=== PATIENT | female | born 1945 | race Caucasian/White ===

== ENCOUNTER → 2024-12-13 | Outpatient (REF) | payer MEDICARE, SELFPAY ==
--- OUTSIDE RECORDS SUMMARY | 2024-12-13 04:05 | XMS RPT_ITS | CCD ---
Author Organization [facility] Care Team Providers Care Sales And Marketing Specialist Name Role Phone Marie Devi Unavailable Unavailable Marie Devi Unavailable Unavailable Marie Devi Unavailable Unavailable Unavailable Marie Devi MD Primary Care Provider Marie Devi MD Primary Care Provider Marie Devi MD Unavailable Marie Devi MD Primary Care Provider MD MARIE DEVI Referring Unavailable MD MARIE DEVI Primary Care Unavailable MD MARIE DEVI Attending Unavailable MD MARIE DEVI Referring Unavailable MD MARIE DEVI Primary Care Unavailable MD MARIE DEVI Attending Unavailable Marie Devi MD Primary Care Provider Vicki Diego MD Unavailable Alvarez Escobedo DOa Sam Unavailable Mirta Brody RN Unavailable Unavailable Vicki Diego MD Unavailable [phone] Fuentes DOesa E Unavailable Marie Devi MD Primary Care Provider Luana Montgomery MD Unavailable Marie Devi MD Unavailable Ivanna Godinez MA Unavailable Unavailable MARIE DEVI Referring Unavailable MARIE DEVI Primary Care Unavailable MARIE DEVI Referring Unavailable MARIE DEVI Primary Care Unavailable MARIE DEVI Primary Care Unavailable MARIE DEVI Referring Unavailable MARIE DEVI Primary Care Unavailable MARIE DEVI Primary Care Unavailable Gertrude YOUNG, Yony Unavailable TORRIE CHOI Attending Unavailable MARIE DEVI Primary Care Unavailable GIA, ELO Attending Unavailable RHINA BUCKLEY Consulting Unavailable MARIE DEVI Primary Care Unavailable GIA, ELO Admitting Unavailable Marie Devi MD Primary Care Provider [phone] MARIE DEVI Primary Care Unavailable FANNY, STEVIE Attending Unavailable MARIE DEVI Primary Care Unavailable FANNY, STEVIE Referring Unavailable FANNY, STEVIE Attending Unavailable SHANDRA, MARIE Primary Care Unavailable FANNY, STEVIE Referring Unavailable STANEC, LEONARDO Primary Care Unavailable FANNY, STEVIE Attending Unavailable DULDINA, MARIE Primary Care Unavailable FANNY, STEVIE Attending Unavailable FANNY, STEVIE Attending Unavailable SHANDRA, MARIE Primary Care Unavailable FANNY, STEVIE Attending Unavailable MARIE DEVI Primary Care Unavailable FANNY, STEVIE Referring Unavailable FANNY, STEVIE Attending Unavailable SHANDRA, MARIE Primary Care Unavailable FANNY, STEVIE Referring Unavailable FANNY, STEVIE Attending Unavailable SHANDRA, MARIE Primary Care Unavailable SHANDRA, MARIE Primary Care Unavailable DONVICKI COLLIER Attending Unavailable FANNY, STEVIE Referring Unavailable DONVICKI COLLIER Attending Unavailable SHANDRA, MARIE Primary Care Unavailable FANNY, STEVIE Attending Unavailable MARIE DEVI Primary Care Unavailable FANNY, STEVIE Referring Unavailable FANNY, STEVIE Attending Unavailable MARIE DEVI Primary Care Unavailable FANNY, STEVIE Referring Unavailable Vicki Diego MD Unavailable [phone] Stanec DO, Leonardo Primary Care Provider Marie Devi MD Unavailable Stansohail DO, Leonardo R Primary Care Provider [phone] MARIE DEVI Attending Unavailable MARIE DEVI Primary Care Unavailable MARIE DEVI Attending Unavailable MARIE DEVI Primary Care Unavailable STANEC, LEONARDO R Attending Unavailable STANSOHAIL, LEONARDO R Primary Care Unavailable MARIE DEVI Primary Care Unavailable LUCIUS DUBOSE Referring Unavailable SHAW KINSEY Attending Unavailable SHERRI, RAVKIRAN Admitting Unavailable MARIE DEVI Primary Care Unavailable KELTON TAYLOR Consulting Unavailable Allergies Allergy Classification Reported Allergen(s) Allergy Type Date of Onset Reaction(s) Facility Alendronate (3 sources) Alendronate; Translations: [Fosamax] Drug Allergy [facility] Work Phone: Cephalosporins (antibiotic) (3 sources) Cephalexin; Translations: [Keflex TABS] Drug Allergy [facility] Work Phone: [phone] Penicillins (antibiotic) (3 sources) Penicillins; Translations: [Penicillins] Drug Allergy [facility] Work Phone: pregabalin (3 sources) pregabalin; Translations: [Lyrica CAPS] Drug Allergy [facility] Work Phone: Serotonin Reuptake Inhibitors (SSRIs) (3 sources) Escitalopram Drug Allergy [facility] Work Phone: [phone] (11 sources) Alendronate; Translations: [Fosamax] Drug Allergy [facility] Work Phone: [phone] (20 sources) Aspirin; Translations: [Adult Aspirin Low Strength TBDP] Drug Allergy 10-31-19 23 Other [facility] Work Phone: [phone] (20 sources) Cephalexin; Translations: [Keflex TABS] Drug Allergy 05-07-20 10 Unknown [facility] Work Phone: (11 sources) Escitalopram Drug Allergy [facility] Work Phone: [phone] (15 sources) Penicillins; Translations: [Penicillins] Allergy to drug (finding) 05-12-20 10 [facility] (20 sources) pregabalin; Translations: [Lyrica CAPS] Drug Allergy 05-07-20 10 Unknown [facility] Work Phone: (20 sources) Alendronate; Translations: [ALENDRONIC ACID] Drug Allergy 05-07-20 10 Unknown, Other [facility] Work Phone: (20 sources) nickel; Translations: [NICKEL] Drug Allergy 05-07-20 10 Unknown [facility] Work Phone: (2 sources) Penicillins Drug Allergy 05-12-20 10 Unknown [facility] Work Phone: (20 sources) Salicylic Acid; Translations: [SALICYLATES] Drug Allergy 05-07-20 10 Unknown, Other [facility] Work Phone: (17 sources) CONTRAST DYE MRI [Other] Propensity to adverse reactions 06-14-20 10 [facility] (14 sources) Escitalopram; Translations: [ESCITALOPRAM OXALATE] Drug Allergy 10-25-19 23 Other [facility] Work Phone: (20 sources) Penicillins Drug Allergy 05-12-20 10 [facility] Work Phone: (12 sources) Salicylic Acid Drug Allergy 05-07-20 10 [facility] Work Phone: (20 sources) Iodinated Contrast Media; Translations: [IODINATED CONTRAST MEDIA] Drug Intolerance 06-14-20 10 [facility] Work Phone: (20 sources) Salicylate product Propensity to adverse reactions to drug 05-07-20 10 [facility] Work Phone: (20 sources) Alendronate Drug Allergy 05-07-20 10 Unknown, Other [facility] [email or web address] (20 sources) Escitalopram Drug Allergy 10-25-19 23 Other, Unknown [facility] [email or web address] (20 sources) Gadolinium Drug Allergy 03-06-20 [email or web address] (20 sources) Iodine; Translations: [IODINE] Drug Allergy 03-06-20 23 Hives [facility] (20 sources) nickel sulfate Drug Allergy 05-07-20 10 Unknown [facility] [email or web address] (20 sources) Penicillins Drug Allergy 05-12-20 10 Unknown [facility] [email or web address] (20 sources) Pregabalin; Translations: [PREGABALIN] Allergy to substance 05-07-20 10 Unknown [facility] [email or web address] (7 sources) Prednisone & Diphenhydramine Drug Allergy 03-06-20 23 Unknown [facility] [email or web address] (10 sources) Acetaminophen / HYDROcodone; Translations: [HYDROCODONE-ACETA MINOPHEN] Drug Allergy 08-14-19 12 Nausea/vomitin g [facility] (2 sources) Aspirin; Translations: [ASPIRIN] Drug Allergy 10-31-19 23 [facility] (4 sources) Cephalexin; Translations: [CEPHALEXIN] Drug Allergy 05-07-20 10 [facility] (1 source) Penicillins Drug Allergy 05-12-20 10 Unknown [facility] Work Phone: Medications Current Medications Medication Drug Class(es) Dates Sig (Normalized) Sig (Original) anastrozole 1 mg oral tablet (20 sources) Aromatase Inhibitor Start: 09-02-2023 End: 07-29-2025 take 1 tablet by mouth once daily anastrozole (Arimidex) 1 MG tablet Indications: Malignant neoplasm of upper-outer quadrant of left breast in female, estrogen receptor positive (HCC) Take 1 tablet (1 mg total) by mouth daily. Swallow whole with a drink of water. 90 tablet 3 08/03/2024 07/29/2025 Active CALCIUM CARB-CHOLECALCIFERO L PO (20 sources) CALCIUM CARB-CHOLECALCIFER OL PO Take by mouth. Active CALCIUM CARB-CHO LECALCIFEROL PO Take by mouth. 0 Active Calcium Carbonate / Vitamin D (8 sources) Calcium Carbonat e-Vitamin D (OSCAL 500/200 D-3 PO) Take 1 tablet by mouth in the morning. Active Calcium Carbonate / vitamin D3 (7 sources) take 1 tablet by iqra th once daily calcium carbonate/vitamin D3 (CALCIUM PLUS VITAMIN D PO) Indications: Osteoporosis Take 1 tablet by mouth once daily. Active calcium carbonat e/vitamin D3 (CALCIUM PLUS VITAMIN D PO) Take by mouth. 0 Active carbidopa 25 mg / levodopa 100 mg oral tablet (20 sources) Aromatic Amino Acid Decarboxylation Inhibitor, Aromatic Amino Acid Start: 01-23-2023 End: 02-12-2023 carbidopa-levodopa (Sinemet) 25-100 mg tablet Indications: Repeated falls , Parkinsonism, unspecified Parkinsonism type (Multi) Take 1 tablet at 10 am, 3 pm, and 8 pm 90 tablet 2 02/12/2023 Active Start: 01-10-2023 End: 01-23-2023 take 1 tablet by mouth twice daily carbidopa-levodopa (Sinemet) 25-100 mg tablet Indications: Depression with anxiety , Repeated falls Take 1 tablet by mouth 2 times a day. 180 tablet 3 01/10/2023 01/23/2023 Discontinued (Reorder) Start: 09-19-2022 take 1 tablet by iqra twice daily carbidopa-levodopa (Sinemet) 25-100 mg tablet Take 1 tablet by mouth 2 times a day. 0 09/19/2022 Active Start: 01-18-2022 carbidopa-levo dopa (Sinemet) 25-100 MG tablet every 8 hours. 01/18/2022 Active Start: 01-18-2022 take 1 tablet by iqra th three times daily, then take 1 tablet by mouth in the morning, then take 3 tablets by mouth in the evening, then take 8 tablets by mouth in the evening carbidopa-levodopa (SINEMET 25-100) 25-100 mg per tablet Take 1 tablet by mouth three times a day. Take 1 tablet at 10 am, 3 pm, and 8 pm 01/18/2022 Active Start: 01-18-2022 carbidopa-levo dopa (SINEMET 25-100) 25-100 mg per tablet Take 1 tablet at 10 am, 3 pm, and 8 pm 0 01/18/2022 Active Comment on above: Take 1 tablet at 10 am, 3 pm, and 8 pm cholecalciferol 0.05 mg oral tablet (3 sources) Vitamin D take 1 tablet by mouth once daily cholecalciferol (Vitamin D-3) 50 MCG (2000 UT) tablet Take 1 tablet (2,000 Units) by mouth once daily. Active diphenhydrAMINE (8 sources) Histamine-1 Receptor Antagonist diphenhydrAMINE HCl (NERVINE PO) daily. Active diphenhydrAMINE HCl (NERVINE PO) Nervine Active docusate sodium 100 mg oral capsule (3 sources) Start: 10-27-2023 End: 11-11-2023 take 1 capsule by mouth twice daily Docusate Sodium (DSS) 100 MG capsule Take 100 mg by mouth twice a day. 10/27/2023 Active DULoxetine 20 mg delayed release oral capsule (20 sources) Serotonin and Norepinephrine Reuptake Inhibitor Start: 01-10-2023 End: 08-10-2024 take 1 capsule by mouth once daily DULoxetine (Cymbalta) [address] capsule Indications: Depression with anxiety Take 1 capsule (20 mg) by mouth once daily. 90 capsule 1 05/05/2024 Active Start: 08-18-2018 take 1 capsule by mo [facility] once daily DULoxetine HCl - 20 MG Oral Capsule Delayed Release Particles TAKE 1 CAPSULE DAILY. Quantity: 90 Refills: 3 Ordered: 13-Dec-2021 Marie Devi MD Start : 18-Aug-2018 Active End: 08-10-2024 take 1 capsule by mouth every eight hours DULoxetine (Cymbalta) [address] capsule Take 1 capsule by mouth every 8 hours. 08/10/2024 Discontinued (Duplicate order) Comment on above: Take 1 capsule (20 m g) by mouth once daily. loratadine 10 mg oral tablet (20 sources) Start: 08-14-2024 take 1 tablet by mouth once daily loratadine (Allergy Relief, loratadine,) 10 mg tablet Indications: Allergic rhinitis, unspecified Take 1 tablet (10 mg) by mouth once daily. 90 tablet 1 08/14/2024 Active Start: 11-15-2022 End: 11-04-2023 loratadine (Claritin) 10 MG tablet Take by mouth daily. 07/22/2023 Active End: 02-03-2023 LORATADINE (CLARITIN ORAL) T flaco by mouth. 0 02/03/2023 Discontinued (Course of therapy completed) LORATADINE (CLAR ITIN ORAL) Take by mouth. 0 Active Comment on above: Take by mouth. Take 1 tablet by iqra every afternoon. memantine hydrochloride 10 mg oral tablet (20 sources) Z-uvkgno-U-aspartate Receptor Antagonist Start: take 1 tablet by mouth once daily memantine (NAMENDA) 10 mg tablet Take 10 mg by mouth once daily. 06/12/2023 Active Start: 02-26-2023 take 1 tablet by iqra th twice daily memantine (Namenda) 10 MG tablet Take 1 tablet by mouth 2 times daily. 02/26/2023 Active Start: 02-26-2023 End: 11-11-2023 take 1 tablet by mouth once daily memantine (Namenda) 5 MG tablet Take 1 tablet by mouth daily. 02/26/2023 09/02/2023 Discontinued (Ineffective) miscellaneous medical supply misc (1 source) miscellaneous me dical supply misc Neurvive Active MULTIPLE VITAMIN PO (20 sources) take 1 capsule by mo uth in the morning MULTIPLE VITAMIN PO Take 1 capsule by mouth in the morning. Active take 1 capsule by mouth in the m orning MULTIPLE VITAMIN PO Take 1 capsule by mouth in the morning. 0 Active Multiple Vitamins-Minerals (THERA M PLUS PO) (8 sources) take 1 dose by mouth in the morning Multiple Vitamins-Minerals (THERA M PLUS PO) Take 1 each by mouth in the morning. Active Multivitamin capsule (13 sources) take 1 capsule by mouth once daily Multivitamin capsule Take 1 capsule by mouth once daily. Active take 1 capsule by mouth once pat ly Multivitamin capsule Take 1 capsule by mouth once daily. 0 Active Comment on above: Take 1 capsule by mo uth once daily. ondansetron 8 mg oral tablet (20 sources) Serotonin-3 Receptor Antagonist Start: 3 End: take 1 tablet by mouth every eight hours as needed ondansetron (Zofran) 8 MG tablet Take 8 mg by mouth every 8 hours as needed. 06/12/2023 Active Start: 03-25-2023 End: 05-04-2023 take 1 tablet by mouth every eight hours as needed for nausea ondansetron (Zofran) 8 MG tablet Indications: Malignant neoplasm of upper-outer quadrant of left breast in female, estrogen receptor positive (HCC) Take 1 tablet (8 mg) by mouth every 8 hours as needed for nausea. 60 tablet 1 03/25/2023 05/04/2023 pantoprazole 40 mg delayed release oral tablet (3 sources) Proton Pump Inhibitor Start: 10-28-2023 End: 11-11-2023 take 1 tablet by mouth once daily pantoprazole (ProtoNix) 40 MG EC tablet Take 40 mg by mouth daily. 10/28/2023 Active polyethylene glycol 3350 37586 mg powder for oral solution (3 sources) Osmotic Laxative Start: 10-28-2023 End: 11-11-2023 take 17 g by mouth once daily polyethylene glycol, PEG, 3350 (Miralax) 17 g packet Take 17 g by mouth daily. 10/28/2023 Active prochlorperazine 10 mg oral tablet (20 sources) Phenothiazine Start: 06-12-2023 End: 02-18-2024 take 1 tablet by mouth every six hours as needed prochlorperazine (Compazine) 10 MG tablet Take 10 mg by mouth every 6 hours as needed. 06/12/2023 Active Start: 03-25-2023 End: 05-24-2023 take 1 tablet by mouth every six hours as needed for nausea prochlorperazine (Compazine) 10 MG tablet Indications: Malignant neoplasm of upper-outer quadrant of left breast in female, estrogen receptor positive (HCC) Take 1 tablet (10 mg) by mouth every 6 hours as needed for nausea. 90 tablet 1 03/25/2023 05/24/2023 psyllium 3400 mg powder for oral suspension (20 sources) take 3.4 g by mouth once daily psyllium (Metamucil) 28.3 % powder Take 3.4 g of fiber by mouth daily. Active sennosides, senior care 8.6 mg oral tablet (3 sources) Start: 10-27-19 End: 11-11-19 take 2 tablets by mouth once daily sennosides (Senokot) 8.6 MG tablet Take 17.2 mg by mouth daily. 10/27/2023 Active sulfamethoxazole 800 mg / trimethoprim 160 mg oral tablet (4 sources) Dihydrofolate Reductase Inhibitor Antibacterial, Sulfonamide Antimicrobial Start: 06-03-20 End: 06-10-20 take 1 tablet by mouth twice daily sulfamethoxazole-t rimethoprim (Bactrim DS) 800-160 MG tablet Indications: Bacterial urinary infection Take 1 tablet by mouth 2 times daily for 7 days. 14 tablet 0 06/03/2023 06/10/2023 Active VITAMIN D PO (20 sources) VITAMIN D PO Aurelio e by mouth. 2 gummies a day Active VITAMIN D PO Aurelio e by mouth. 2 gummies a day 0 Active Completed/Discontinued Medications Medication Drug Class(es) Dates Sig (Normalized) Sig (Original) acetaminophen 325 mg oral tablet (5 sources) Start: 06-24-2023 End: 06-24-2023 650 mg, Oral, Once, On Fri06/24/23 at 0930, For 1 dose, Administer 30 to 60 minutes prior to treatment. Maximum dose of acetaminophen is 4000 mg from all sources in 24 hours. Start: 06-24-2023 End: 06-24-2023 acetaminophen (Tylenol) tabl et 650 mg Start: 04-01-2023 End: 04-01-2023 acetaminophen (Tylenol) tabl et 650 mg take 2 tablets by mo uth every six hours as needed acetaminophen (Tylenol) 325 MG tablet Take 650 mg by mouth every 6 hours as needed. Active amoxicillin 500 mg oral tablet (20 sources) Penicillin-class Antibacterial End: 08-10-2024 take 1 tablet by mouth in the morning dexamethasone 6 mg oral tablet (20 sources) Corticosteroid Start: 10-14-2023 End: 08-10-2024 take 1 tablet by mouth once daily dexAMETHasone (Decadron) 6 MG tablet Take 1 tablet by mouth once daily for 3 doses. 10/14/2023 08/10/2024 Discontinued (Duplicate order) Start: 03-25-2023 End: 03-26-2023 dexAMETHasone (Decadron) 4 M G tablet Indications: Malignant neoplasm of upper-outer quadrant of left breast in female, estrogen receptor positive (HCC) Take 1 tablet (4 mg) by mouth in the morning and 1 tablet (4 mg) in the evening. Take with meals. Do all this for 1 day. Take 6 hours and 12 hours prior to first cycle of chemotherapy.. 2 tablet 03/25/2023 Active diphenhydrAMINE (BENADryl) 2 5 mg, famotidine (Pepcid) 20 mg in sodium chloride 0.9 % 50 mL IVPB (4 sources) Start: 06-24-2023 End: 06-24-2023 IntraVENous, at 150 mL/hr, Administer over 20 Minutes, Once, On Fri06/24/23 at 0930, For 1 dose, Administer 30 minutes prior to treatment. Start: 06-24-2023 End: 06-24-2023 diphenhydrAMINE (BENADryl) 2 5 mg, famotidine (Pepcid) 20 mg in sodium chloride 0.9 % 50 mL IVPB Start: 05-27-2023 End: 05-27-2023 diphenhydrAMINE (BENADryl) 2 5 mg, famotidine (Pepcid) 20 mg in sodium chloride 0.9 % 50 mL IVPB Start: 05-20-2023 End: 05-20-2023 diphenhydrAMINE (BENADryl) 2 5 mg, famotidine (Pepcid) 20 mg in sodium chloride 0.9 % 50 mL IVPB diphenhydrAMINE (BENADryl) 5 0 mg, famotidine (Pepcid) 20 mg in sodium chloride 0.9 % 50 mL IVPB (7 sources) Start: 05-13-2023 End: 05-13-2023 diphenhydrAMINE (BENADryl) 5 0 mg, famotidine (Pepcid) 20 mg in sodium chloride 0.9 % 50 mL IVPB Start: 05-06-2023 End: 05-06-2023 diphenhydrAMINE (BENADryl) 5 0 mg, famotidine (Pepcid) 20 mg in sodium chloride 0.9 % 50 mL IVPB Start: 04-29-2023 End: 04-29-2023 diphenhydrAMINE (BENADryl) 5 0 mg, famotidine (Pepcid) 20 mg in sodium chloride 0.9 % 50 mL IVPB Start: 04-22-2023 End: 04-22-2023 diphenhydrAMINE (BENADryl) 5 0 mg, famotidine (Pepcid) 20 mg in sodium chloride 0.9 % 50 mL IVPB Start: 04-08-2023 End: 04-08-2023 IntraVENous, at 150 mL/hr, A dminister over 20 Minutes, Once, On Fri04/08/23 at 1045, For 1 dose, Administer 30 minutes prior to treatment. Start: 04-08-2023 End: 04-08-2023 diphenhydrAMINE (BENADryl) 5 0 mg, famotidine (Pepcid) 20 mg in sodium chloride 0.9 % 50 mL IVPB Start: 04-01-2023 End: 04-01-2023 diphenhydrAMINE (BENADryl) 5 0 mg, famotidine (Pepcid) 20 mg in sodium chloride 0.9 % 50 mL IVPB doxycycline hyclate 50 mg oral capsule (8 sources) Tetracycline-class Drug Start: 10-15-2022 End: 02-05-2023 take 1 capsule by mouth once daily doxycycline (VIBRAMYCIN) 50 mg capsule Take 1 capsule (50 mg) by mouth once daily. 0 10/15/2022 02/05/2023 Discontinued (Course of therapy completed) Start: 07-17-2022 take 1 capsule by [facility] once daily Doxycycline Hyclate 50 MG Oral Capsule TAKE 1 CAPSULE DAILY FOR ACNE Quantity: 90 Refills: 0 Ordered: 17-Jul-2022 Marie Devi MD Start : 17-Jul-2022 Active Comment on above: Take 1 capsule (50 m g) by mouth once daily. metroNIDAZOLE 0.0075 mg/mg topical gel (18 sources) Nitroimidazole Antimicrobial Start: 03-05-2018 End: 08-10-2024 metroNIDAZOLE 0.75 % External Gel APPLY AND RUB IN A THIN FILM TO AFFECTED AREAS TWICE DAILY.(AM AND PM). Quantity: 45 Refills: 2 Marie Devi MD Start : 05-Mar-2018 Active Start: 11-22-2016 metroNIDAZOLE 0.75 % External Gel apply and rub in a thin film TO THE AFFECTED AREA(S) TWICE DAILY (IN THE MORNING and IN THE EVENING) Quantity: 45 Refills: 2 Ordered: 10-Jan-2022 Marie Devi MD Start : 22-Nov-2016 Active patient is completely out. Start: 11-22-2016 metroNIDAZOLE 0.75 % External Gel apply and rub in a thin film TO THE AFFECTED AREA(S) TWICE DAILY (IN THE MORNING and IN THE EVENING) Quantity: 45 Refills: 0 Ordered: 17-Jan-2021 Dara Sorensen DO Start : 22-Nov-2016 Active patient is completely out. Start: 11-22-2016 metroNIDAZOLE 0.75 % External Gel apply and rub in a thin film TO THE AFFECTED AREA(S) TWICE DAILY (IN THE MORNING and IN THE EVENING) Quantity: 45 Refills: 2 Ordered: 11-Nov-2020 Marie Devi MD Start : 22-Nov-2016 Active End: 08-10-2024 metroNIDAZOLE (Metrogel) 0.7 5 % vaginal gel as directed Externally as directed 08/10/2024 Discontinued (Duplicate order) ondansetron (Zofran) 8 mg, dexAMETHasone (Decadron) 12 mg in sodium chloride 0.9 % 50 mL IVPB (9 sources) Start: 05-27-2023 End: 05-27-2023 ondansetron (Zofran) 8 mg, dexAMETHasone (Decadron) 12 mg in sodium chloride 0.9 % 50 mL IVPB Start: 05-20-2023 End: 05-20-2023 ondansetron (Zofran) 8 mg, d exAMETHasone (Decadron) 12 mg in sodium chloride 0.9 % 50 mL IVPB Start: 05-13-2023 End: 05-13-2023 ondansetron (Zofran) 8 mg, d exAMETHasone (Decadron) 12 mg in sodium chloride 0.9 % 50 mL IVPB Start: 05-06-2023 End: 05-06-2023 ondansetron (Zofran) 8 mg, d exAMETHasone (Decadron) 12 mg in sodium chloride 0.9 % 50 mL IVPB Start: 04-29-2023 End: 04-29-2023 ondansetron (Zofran) 8 mg, d exAMETHasone (Decadron) 12 mg in sodium chloride 0.9 % 50 mL IVPB Start: 04-22-2023 End: 04-22-2023 ondansetron (Zofran) 8 mg, d exAMETHasone (Decadron) 12 mg in sodium chloride 0.9 % 50 mL IVPB Start: 04-08-2023 End: 04-08-2023 IntraVENous, at 100 mL/hr, A dminister over 30 Minutes, Once, On Fri04/08/23 at 1045, For 1 dose Start: 04-08-2023 End: 04-08-2023 ondansetron (Zofran) 8 mg, d exAMETHasone (Decadron) 12 mg in sodium chloride 0.9 % 50 mL IVPB Start: 04-01-2023 End: 04-01-2023 ondansetron (Zofran) 8 mg, d exAMETHasone (Decadron) 12 mg in sodium chloride 0.9 % 50 mL IVPB ondansetron (Zofran) 8 mg, dexAMETHasone (Decadron) 8 mg in sodium chloride 0.9 % 50 mL IVPB (3 sources) Start: 08-05-2023 End: 08-05-2023 ondansetron (Zofran) 8 mg, dexAMETHasone (Decadron) 8 mg in sodium chloride 0.9 % 50 mL IVPB Start: 06-03-2023 End: 06-03-2023 ondansetron (Zofran) 8 mg, d exAMETHasone (Decadron) 8 mg in sodium chloride 0.9 % 50 mL IVPB Start: 05-23-2023 End: 05-23-2023 ondansetron (Zofran) 8 mg, d exAMETHasone (Decadron) 8 mg in sodium chloride 0.9 % 50 mL IVPB PACLitaxel (Taxol) 126 mg in sodium chloride 0.9 % 250 mL chemo IVPB (6 sources) Start: 05-27-2023 End: 05-27-2023 PACLitaxel (Taxol) 126 mg in sodium chloride 0.9 % 250 mL chemo IVPB Start: 05-20-2023 End: 05-20-2023 PACLitaxel (Taxol) 126 mg in sodium chloride 0.9 % 250 mL chemo IVPB Start: 05-13-2023 End: 05-13-2023 PACLitaxel (Taxol) 126 mg in sodium chloride 0.9 % 250 mL chemo IVPB Start: 05-06-2023 End: 05-06-2023 PACLitaxel (Taxol) 126 mg in sodium chloride 0.9 % 250 mL chemo IVPB Start: 04-29-2023 End: 04-29-2023 PACLitaxel (Taxol) 126 mg in sodium chloride 0.9 % 250 mL chemo IVPB Start: 04-22-2023 End: 04-22-2023 PACLitaxel (Taxol) 126 mg in sodium chloride 0.9 % 250 mL chemo IVPB PACLitaxel (Taxol) 162 mg in sodium chloride 0.9 % 250 mL chemo IVPB (3 sources) Start: 04-08-2023 End: 04-08-2023 162 mg (rounded from 164.8 m g = 80 mg/m2 2.06 m2 Treatment Plan BSA from Recorded weight), IntraVENous, at 277 mL/hr, Administer over 1 Hours, Once, On Fri04/08/23 at 1145, For 1 dose, Administer with in-line 0.22 micron filter. Maintain concentration of 0.3 to 1.2 mg/mL. Hazardous Medication -- Refer to facility policy for handling and disposal. Start: 04-08-2023 End: 04-08-2023 PACLitaxel (Taxol) 162 mg in sodium chloride 0.9 % 250 mL chemo IVPB Start: 04-01-2023 End: 04-01-2023 PACLitaxel (Taxol) 162 mg in sodium chloride 0.9 % 250 mL chemo IVPB PARoxetine (9 sources) Serotonin Reuptake Inhibitor End: 02-03-2023 PAROXETINE HCL ORAL Take by mouth. 0 02/03/2023 Discontinued (Course of therapy completed) PAROXETINE HCL O RAL Take by mouth. 0 Active Comment on above: Take by mouth. predniSONE 20 mg oral tablet (1 source) Start: 08-12-2023 End: 11-11-2023 predniSONE (Deltasone) 20 mg tablet Indications: Persistent cough for 3 weeks or longer Take 2 tablets daily for 5 days, with food 10 tablet 08/12/2023 11/11/2023 Discontinued (Med List Cleanup) 1000 ml sodium chloride 9 mg/ml injection (20 sources) Start: 09-23-2023 End: 09-23-2023 sodium chloride 0.9 % infusion Start: 09-02-2023 End: 09-02-2023 take 100 mL intravenously every hour, then take 20 mL intravenously every hour 5-250 mL/hr, IntraVENous, Once PRN, KVO, Starting on Fri09/02/23 at 1018, If patient receiving piggyback infusions and maintenance fluids are not ordered OR KVO fluids to protect IV site/ prevent frequent line interruptions/ long duration For piggyback infusion, administer at same rate as piggyback for a total of 25 mL. Enter 25 mL into dose field and piggyback rate into rate field of order. If piggyback is infusing at a rate less than 100 mL/hr, enter 25 mL into dose field and 100 mL/hr into rate field of order. For KVO fluids, enter rate of 20 mL/hr or less into rate field of order. Start: 09-02-2023 End: 09-02-2023 sodium chloride 0.9 % infusi on Start: 08-12-2023 End: 08-12-2023 take 1 dose by mouth once as needed 1,000 mL, IntraVENous, at 1,000 mL/hr, Administer over 60 Minutes, Once PRN, signs/symptoms of dehydration, poor po intake, Starting on Fri08/12/23 at 0938, For 1 dose Start: 08-12-2023 End: 08-12-2023 take 1 dose by mouth once as needed 1,000 mL, IntraVENous, at 1,000 mL/hr, Administer over 60 Minutes, Once PRN, signs/symptoms of dehydration, poor po intake, Starting on Fri08/12/23 at 0938, For 1 dose Start: 08-12-2023 End: 08-12-2023 take 1 dose by mouth once as needed 1,000 mL, IntraVENous, at 1,000 mL/hr, Administer over 60 Minutes, Once PRN, signs/symptoms of dehydration, poor po intake, Starting on Fri08/12/23 at 0938, For 1 dose Start: 08-12-2023 End: 08-12-2023 take 1 dose by mouth once as needed 1,000 mL, IntraVENous, at 1,000 mL/hr, Administer over 60 Minutes, Once PRN, signs/symptoms of dehydration, poor po intake, Starting on Fri08/12/23 at 0938, For 1 dose Start: 08-12-2023 End: 08-12-2023 take 1 dose by mouth once as needed 1,000 mL, IntraVENous, at 1,000 mL/hr, Administer over 60 Minutes, Once PRN, signs/symptoms of dehydration, poor po intake, Starting on Fri08/12/23 at 0938, For 1 dose Start: 08-12-2023 End: 08-12-2023 take 1 dose by mouth once as needed 1,000 mL, IntraVENous, at 1,000 mL/hr, Administer over 60 Minutes, Once PRN, signs/symptoms of dehydration, poor po intake, Starting on Fri08/12/23 at 0938, For 1 dose Start: 08-12-2023 End: 08-12-2023 take 1 dose by mouth once as needed 1,000 mL, IntraVENous, at 1,000 mL/hr, Administer over 60 Minutes, Once PRN, signs/symptoms of dehydration, poor po intake, Starting on Fri08/12/23 at 0938, For 1 dose Start: 08-12-2023 End: 08-12-2023 sodium chloride 0.9 % bolus 1,000 mL Start: 08-05-2023 End: 08-05-2023 sodium chloride 0.9 % bolus 1,000 mL Start: 07-15-2023 End: 07-15-2023 take 100 mL intravenously every hour, then take 20 mL intravenously every hour 5-250 mL/hr, IntraVENous, Once PRN, KVO, Starting on Fri07/15/23 at 1133, If patient receiving piggyback infusions and maintenance fluids are not ordered OR KVO fluids to protect IV site/ prevent frequent line interruptions/ long duration For piggyback infusion, administer at same rate as piggyback for a total of 25 mL. Enter 25 mL into dose field and piggyback rate into rate field of order. If piggyback is infusing at a rate less than 100 mL/hr, enter 25 mL into dose field and 100 mL/hr into rate field of order. For KVO fluids, enter rate of 20 mL/hr or less into rate field of order. Start: 07-15-2023 End: 07-15-2023 sodium chloride 0.9 % infusi on Start: 06-24-2023 End: 06-24-2023 take 100 mL intravenously every hour, then take 20 mL intravenously every hour 5-250 mL/hr, IntraVENous, Once PRN, KVO, Starting on Fri06/24/23 at 0921, If patient receiving piggyback infusions and maintenance fluids are not ordered OR KVO fluids to protect IV site/ prevent frequent line interruptions/ long duration For piggyback infusion, administer at same rate as piggyback for a total of 25 mL. Enter 25 mL into dose field and piggyback rate into rate field of order. If piggyback is infusing at a rate less than 100 mL/hr, enter 25 mL into dose field and 100 mL/hr into rate field of order. For KVO fluids, enter rate of 20 mL/hr or less into rate field of order. Start: 06-24-2023 End: 06-24-2023 sodium chloride 0.9 % infusi on Start: 06-13-2023 End: 06-13-2023 sodium chloride 0.9 % bolus 1,000 mL Start: 06-03-2023 End: 06-03-2023 sodium chloride 0.9 % infusi on Start: 06-03-2023 End: 06-03-2023 sodium chloride 0.9 % bolus 1,000 mL Start: 05-27-2023 End: 05-27-2023 sodium chloride 0.9 % infusi on Start: 05-23-2023 End: 05-23-2023 sodium chloride 0.9 % bolus 1,000 mL Start: 05-20-2023 End: 05-20-2023 sodium chloride 0.9 % infusi on Start: 05-13-2023 End: 05-13-2023 sodium chloride 0.9 % infusi on Start: 05-06-2023 End: 05-06-2023 sodium chloride 0.9 % infusi on Start: 04-29-2023 End: 04-29-2023 sodium chloride 0.9 % infusi on Start: 04-22-2023 End: 04-22-2023 sodium chloride 0.9 % infusi on Start: 04-08-2023 End: 04-08-2023 take 100 mL intravenously every hour, then take 20 mL intravenously every hour 5-250 mL/hr, IntraVENous, Once PRN, KVO, Starting on Fri04/08/23 at 1030, If patient receiving piggyback infusions and maintenance fluids are not ordered OR KVO fluids to protect IV site/ prevent frequent line interruptions/ long duration For piggyback infusion, administer at same rate as piggyback for a total of 25 mL. Enter 25 mL into dose field and piggyback rate into rate field of order. If piggyback is infusing at a rate less than 100 mL/hr, enter 25 mL into dose field and 100 mL/hr into rate field of order. For KVO fluids, enter rate of 20 mL/hr or less into rate field of order. Start: 04-08-2023 End: 04-08-2023 sodium chloride 0.9 % infusi on Start: 04-01-2023 End: 04-01-2023 sodium chloride 0.9 % infusi on trastuzumab-qyyp (Trazimera) 184.6 mg in sodium chloride 0.9 % 250 mL chemo IVPB (8 sources) Start: 05-27-2023 End: 05-27-2023 trastuzumab-qyyp (Trazimera) 184.6 mg in sodium chloride 0.9 % 250 mL chemo IVPB Start: 05-20-2023 End: 05-20-2023 trastuzumab-qyyp (Trazimera) 184.6 mg in sodium chloride 0.9 % 250 mL chemo IVPB Start: 05-13-2023 End: 05-13-2023 trastuzumab-qyyp (Trazimera) 184.6 mg in sodium chloride 0.9 % 250 mL chemo IVPB Start: 05-06-2023 End: 05-06-2023 trastuzumab-qyyp (Trazimera) 184.6 mg in sodium chloride 0.9 % 250 mL chemo IVPB Start: 04-29-2023 End: 04-29-2023 trastuzumab-qyyp (Trazimera) 184.6 mg in sodium chloride 0.9 % 250 mL chemo IVPB Start: 04-22-2023 End: 04-22-2023 trastuzumab-qyyp (Trazimera) 184.6 mg in sodium chloride 0.9 % 250 mL chemo IVPB Start: 04-08-2023 End: 04-08-2023 184.6 mg (2 mg/kg 92.3 kg Tr eatment plan Recorded weight), IntraVENous, at 517.6 mL/hr, Administer over 30 Minutes, Once, On Fri04/08/23 at 1245, For 1 dose, DO NOT administer IV PUSH or BOLUS. Initial infusion time is 90 minutes. Subsequent doses may use 30 minutes as tolerated. Trastuzumab not compatible with D5W. Do not mix with any other medications. Hazardous Medication -- Refer to facility policy for handling and disposal. Hazardous Medication -- Refer to facility policy for handling and disposal. Start: 04-08-2023 End: 04-08-2023 trastuzumab-qyyp (Trazimera) 184.6 mg in sodium chloride 0.9 % 250 mL chemo IVPB trastuzumab-qyyp (Trazimera) 372 mg in sodium chloride 0.9 % 250 mL chemo IVPB (1 source) Start: 04-01-2023 End: 04-01-2023 trastuzumab-qyyp (Trazimera) 372 mg in sodium chloride 0.9 % 250 mL chemo IVPB trastuzumab-qyyp (Trazimera) 570 mg in sodium chloride 0.9 % 250 mL chemo IVPB (16 sources) Start: 09-23-2023 End: 09-23-2023 trastuzumab-qyyp (Trazimera) 570 mg in sodium chloride 0.9 % 250 mL chemo IVPB Start: 09-02-2023 End: 09-02-2023 570 mg (rounded from 553.8 m g = 6 mg/kg 92.3 kg Treatment plan Recorded weight), IntraVENous, at 554.3 mL/hr, Administer over 30 Minutes, Once, On Fri09/02/23 at 1100, For 1 dose, DO NOT administer IV PUSH or BOLUS. Initial infusion time is 90 minutes. Subsequent doses may use 30 minutes as tolerated. Trastuzumab not compatible with D5W. Do not mix with any other medications. Hazardous Medication -- Refer to facility policy for handling and disposal. Hazardous Medication -- Refer to facility policy for handling and disposal. Start: 09-02-2023 End: 09-02-2023 trastuzumab-qyyp (Trazimera) 570 mg in sodium chloride 0.9 % 250 mL chemo IVPB Start: 08-12-2023 End: 08-12-2023 570 mg (rounded from 553.8 m g = 6 mg/kg 92.3 kg Treatment plan Recorded weight), IntraVENous, at 554.3 mL/hr, Administer over 30 Minutes, Once, On Fri08/12/23 at 1015, For 1 dose, DO NOT administer IV PUSH or BOLUS. Initial infusion time is 90 minutes. Subsequent doses may use 30 minutes as tolerated. Trastuzumab not compatible with D5W. Do not mix with any other medications. Hazardous Medication -- Refer to facility policy for handling and disposal. Hazardous Medication -- Refer to facility policy for handling and disposal. Start: 08-12-2023 End: 08-12-2023 trastuzumab-qyyp (Trazimera) 570 mg in sodium chloride 0.9 % 250 mL chemo IVPB Start: 07-15-2023 End: 07-15-2023 570 mg (rounded from 553.8 m g = 6 mg/kg 92.3 kg Treatment plan Recorded weight), IntraVENous, at 554.3 mL/hr, Administer over 30 Minutes, Once, On Fri07/15/23 at 1215, For 1 dose, DO NOT administer IV PUSH or BOLUS. Initial infusion time is 90 minutes. Subsequent doses may use 30 minutes as tolerated. Trastuzumab not compatible with D5W. Do not mix with any other medications. Hazardous Medication -- Refer to facility policy for handling and disposal. Hazardous Medication -- Refer to facility policy for handling and disposal. Start: 07-15-2023 End: 07-15-2023 trastuzumab-qyyp (Trazimera) 570 mg in sodium chloride 0.9 % 250 mL chemo IVPB trastuzumab-qyyp (Trazimera) 750 mg in sodium chloride 0.9 % 250 mL chemo IVPB (2 sources) Start: 06-24-2023 End: 06-24-2023 750 mg (rounded from 738.4 m g = 8 mg/kg 92.3 kg Treatment plan Recorded weight), IntraVENous, at 190.5 mL/hr, Administer over 90 Minutes, Once, On Fri06/24/23 at 1000, For 1 dose, DO NOT administer IV PUSH or BOLUS. Initial infusion time is 90 minutes. Subsequent doses may use 30 minutes as tolerated. Trastuzumab not compatible with D5W. Do not mix with any other medications. Hazardous Medication -- Refer to facility policy for handling and disposal. Hazardous Medication -- Refer to facility policy for handling and disposal. Start: 06-24-2023 End: 06-24-2023 trastuzumab-qyyp (Trazimera) 750 mg in sodium chloride 0.9 % 250 mL chemo IVPB Problems Active Problems Problem Classification Problem Date Documented Date Episodic/Chronic Acute cerebrovascular disease (20 sources) Cerebrovascular accident; Translations: [Cerebral infarction, unspecified] Onset: 0 02-05-2023 Chronic Anxiety disorders (20 sources) Mixed anxiety and depressive disorder; Translations: [Dysthymic disorder] Onset: 3 10-29-2022 Chronic Cancer of breast (20 sources) Malignant neoplasm of upper-outer quadrant of female breast; Translations: [Malignant neoplasm of upper-outer quadrant of left female breast] Onset: 3 02-03-2023 Chronic Cancer of uterus (8 sources) Malignant neoplasm of uterus; Translations: [Malignant neoplasm of uterus, part unspecified] Onset: 4 06-26-2023 Chronic E Codes: Adverse effects of medical drugs (1 source) Toxicity due to chemotherapy; Translations: [Adverse effect of antineoplastic and immunosuppressive drugs, initial encounter] 06-30-2023 Episodic Fluid and electrolyte disorders (1 source) Dehydration; Translations: [Dehydration] 06-30-2023 Episodic Immunizations and screening for infectious disease (11 sources) Immunization due; Translations: [Need for prophylactic vaccination and inoculation against unspecified single disease] Episodic Malaise and fatigue (1 source) Other fatigue; Translations: [Lethargy] Onset: 5 Episodic Menopausal disorders (20 sources) Menopausal syndrome; Translations: [Symptomatic menopausal or female climacteric states] Onset: 3 10-29-2022 Chronic Menopausal disorders (3 sources) Decreased estrogen level; Translations: [Estrogen deficiency] Episodic Mood disorders (20 sources) Recurrent major depressive episodes, mild ; Translations: [Major depressive affective disorder, recurrent episode, mild] Onset: 3 10-29-2022 Chronic Nutritional deficiencies (1 source) Vitamin D deficiency; Translations: [Vitamin D deficiency, unspecified] 09-17-2024 Chronic Other aftercare (14 sources) Patient encounter status; Translations: [Long-term (current) use of other medications] 07-29-2023 Episodic Other aftercare (16 sources) Drug therapy finding; Translations: [Encounter for therapeutic drug level monitoring] 05-12-2023 Episodic Other circulatory disease (1 source) Low blood pressure; Translations: [Hypotension, unspecified] 06-03-2023 Episodic Other inflammatory condition of skin (20 sources) Rosacea; Translations: [Rosacea] Onset: 3 10-15-2022 Chronic Other lower respiratory disease (3 sources) Hypoxia; Translations: [Nocturnal hypoxemia] Episodic Other nutritional; endocrine; and metabolic disorders (20 sources) Obese class I; Translations: [Obesity, unspecified] Onset: 3 10-29-2022 Chronic Other nutritional; endocrine; and metabolic disorders (4 sources) Obesity; Translations: [Obesity, unspecified] Chronic Other nutritional; endocrine; and metabolic disorders (2 sources) Obesity, unspecified; Translations: [Obesity, unspecified] Onset: 3 Chronic Other upper respiratory disease (20 sources) Allergic rhinitis; Translations: [Allergic rhinitis, cause unspecified] Onset: 3 10-29-2022 Chronic Parkinson`s disease (20 sources) Parkinsonism; Translations: [Parkinson's disease] Onset: 3 01-23-2023 Chronic Parkinson`s disease (2 sources) Parkinson`s disease; Translations: [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, without behavioral disturbance, psychotic disturbance, mood disturbance, or anxiety (HCC)] Onset: 5 Pneumonia (except that caused by tuberculosis or sexually transmitted disease) (2 sources) Pneumonia (except that caused by tuberculosis or sexually transmitted disease); Translations: [Pneumonia due to coronavirus disease 2018] Onset: 4 Residual codes; unclassified (20 sources) Obstructive sleep apnea syndrome; Translations: [Obstructive sleep apnea (adult)(pediatric)] Onset: 3 10-29-2022 Chronic Residual codes; unclassified (20 sources) Hypoxia; Translations: [Idiopathic sleep related non-obstructive alveolar hypoventilation] Onset: 3 10-29-2022 Chronic Residual codes; unclassified (3 sources) Other general symptoms and signs; Translations: [Other general symptoms] 03-18-2023 Episodic Residual codes; unclassified (1 source) Not for resuscitation; Translations: [Do not resuscitate] 09-17-2024 Episodic Residual codes; unclassified (1 source) Transient alteration of awareness; Translations: [Transient alteration of awareness] Onset: 5 Episodic Systemic lupus erythematosus and connective tissue disorders (1 source) Other giant cell arteritis; Translations: [Temporal arteritis (HCC)] Onset: 5 Chronic Thyroid disorders (5 sources) Thyroid nodule; Translations: [Nontoxic single thyroid nodule] Onset: 4 07-30-2023 Chronic Unclassified (1 source) Parkinson's disease; Translations: [Parkinson's disease without dyskinesia or fluctuating manifestations] 09-17-2024 Chronic Unclassified (2 sources) OP Infusion; Translations: [OP Infusion] Onset: 4 Unclassified (2 sources) Medicare Annual Wellness Visit Subsequent; Translations: [Medicare Annual Wellness Visit Subsequent] Onset: 5 Unclassified (1 source) Parkinsonism, unspecified (Multi); Translations: [Parkinsonism, unspecified (Multi)] Onset: 3 Viral infection (2 sources) COVID-19; Translations: [COVID-19] Onset: 4 Past or Other Problems Problem Classification Problem Date Documented Da te Episodic/Chronic Allergic reactions (20 sources) Eczema; Translations: [Contact dermatitis and other eczema, unspecified cause] Onset: 10-29-2022 10-29-2022 Episodic Cancer of uterus (20 sources) H/O: malignant neoplasm; Translations: [Personal history of malignant neoplasm of other parts of uterus] Onset: 07-24-2005 02-05-2023 Episodic Diseases of white blood cells (6 sources) Febrile neutropenia; Translations: [Neutropenia, unspecified] Onset: 06-05-2023 Resolved: 06-08-2023 06-08-2023 Chronic Fever of unknown origin (6 sources) Fever; Translations: [Fever, unspecified] Onset: 06-05-2023 10-09-2023 Episodic Hemorrhoids (20 sources) External hemorrhoids; Translations: [External hemorrhoids without mention of complication] Onset: 10-29-2022 10-29-2022 Episodic Mood disorders (12 sources) Mood disorders Onset: 07-12-2021 Resolved: 09-17-2024 08-04-2022 Nonmalignant breast conditions (20 sources) Mammographic calcification of breast; Translations: [Mammographic calcification found on diagnostic imaging of breast] Onset: 07-24-2013 07-24-2013 Episodic Other aftercare (4 sources) Encounter for therapeutic drug level monitoring; Translations: [Encounter for therapeutic drug level monitoring] Onset: 02-05-2023 Episodic Other aftercare (2 sources) Other shelter (current) drug therapy; Translations: [Other shelter (current) drug therapy] Onset: 09-18-2023 Episodic Other aftercare (2 sources) longterm (current) use of aromatase inhibitors; 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] Onset: 09-05-2023 Episodic Other and unspecified benign neoplasm (20 sources) Hemangioma of skin and subcutaneous tissue; Translations: [Hemangioma of skin and subcutaneous tissue] Onset: 04-24-2016 02-12-2023 Episodic Other and unspecified benign neoplasm (8 sources) History of polyp of colon; Translations: [Personal history of colonic polyps] Onset: 10-05-2014 06-26-2023 Episodic Other and unspecified benign neoplasm (8 sources) Polyp of colon; Translations: [Polyp of colon] Onset: 10-11-2022 06-26-2023 Episodic Other and unspecified benign neoplasm (8 sources) Benign neoplasm of colon; Translations: [Benign neoplasm of colon, unspecified] Onset: 08-28-2011 06-26-2023 Episodic Other connective tissue disease (20 sources) Falls; Translations: [Other symptoms involving nervous and musculoskeletal systems] Onset: 10-29-2022 10-29-2022 Episodic Other gastrointestinal disorders (2 sources) Encopresis ; Translations: [Encopresis] Episodic Other lower respiratory disease (2 sources) Other forms of dyspnea; Translations: [Other forms of dyspnea] Onset: 02-05-2023 Episodic Other nervous system disorders (6 sources) Toxic encephalopathy; Translations: [Toxic encephalopathy] Onset: 10-09-2023 10-09-2023 Episodic Other nutritional; endocrine; and metabolic disorders (6 sources) Adult failure to thrive syndrome; Translations: [Adult failure to thrive] Onset: 06-05-2023 10-09-2023 Episodic Other screening for suspected conditions (not mental disorders or infectious disease) (20 sources) Raised TSH level; Translations: [Patient encounter status] Onset: 09-26-2022 10-29-2022 Episodic Other skin disorders (20 sources) Other seborrheic keratosis; Translations: [Seborrheic keratosis] Onset: 10-29-2022 10-24-2022 Episodic Other skin disorders (20 sources) Loss of hair; Translations: [Alopecia, unspecified] Onset: 10-29-2022 10-29-2022 Episodic Other skin disorders (20 sources) Suspected malignant pigmented skin lesion; Translations: [Disorder of pigmentation, unspecified] Onset: 03-18-2023 10-30-2022 Episodic Pneumonia (except that caused by tuberculosis or sexually transmitted disease) (14 sources) Infective pneumonia; Translations: [Pneumonia, unspecified organism] Onset: 06-08-2023 06-26-2023 Episodic Poisoning by nonmedicinal substances (20 sources) Allergic reaction to bee sting; Translations: [Toxic effect of venom] Onset: 10-29-2022 10-29-2022 Episodic Residual codes; unclassified (20 sources) Bilateral lower limb edema; Translations: [Localized edema] Onset: 02-05-2023 02-16-2023 Episodic Residual codes; unclassified (20 sources) Amnesia; Translations: [Other amnesia] Onset: 03-18-2023 03-18-2023 Episodic Residual codes; unclassified (3 sources) Localized edema; Translations: [Localized edema] Onset: 02-05-2023 06-03-2023 Episodic Residual codes; unclassified (6 sources) Menopause present; Translations: [Asymptomatic menopausal state] Onset: 09-05-2023 09-02-2023 Episodic Residual codes; unclassified (1 source) Localized edema; Translations: [Localized edema] Onset: 02-05-2023 Episodic Residual codes; unclassified (1 source) Asymptomatic menopausal state; Translations: [Asymptomatic menopausal state] Onset: 09-05-2023 Episodic Residual codes; unclassified (3 sources) Estrogen receptor positive status [ER+]; Translations: [Estrogen receptor positive status (ER+)] Onset: 03-18-2023 Episodic Residual codes; unclassified (3 sources) Immunization due; Translations: [Immunization due] Respiratory failure; insufficiency; arrest (adult) (6 sources) Acute respiratory failure; Translations: [Acute respiratory failure with hypoxia] Onset: 10-09-2023 10-09-2023 Episodic Spondylosis; intervertebral disc disorders; other back problems (20 sources) Low back pain; Translations: [Lumbago] Onset: 10-29-2022 10-29-2022 Episodic Unclassified (12 sources) Patient encounter status; Translations: [Screening mammogram, encounter for] Unclassified (2 sources) Finding related to sleep; Translations: [Sleep disorder breathing] Unclassified (12 sources) Onset: 10-24-2022 Resolved: 10-10-2024 10-24-2022 Unclassified (1 source) Parkinsonism, unspecified (Multi); Translations: [Parkinsonism, unspecified (Multi)] Onset: 11-11-2023 Viral infection (7 sources) COVID-19; Translations: [Pneumonia due to other virus not elsewhere classified] Onset: 10-08-2023 10-09-2023 Episodic NEGATED: Highlighted row has not occurred!Residual codes; unclassified (13 sources) Disease Episodic Results Test Name Value Interpretation Reference Range Facility ANES POSTPROC EVALon 025 ANES POSTPROC EVAL HNO ID: [id number] Author: PUMA MADRIGAL MD Service: Anesthesiology Author Type: Anesthesiologist Type: Anesthesia Postprocedure Evaluation Filed: 12/10/2024 08:02 Note Text: POST ANESTHESIA EVALUATION NOTE : 1945 Procedure Summary Date: 12/09/24 Room / Location: [place] [address] / OR OR Anesthesia Start: 1451 Anesthesia Stop: 1602 Procedure: BIOPSY ARTERY TEMPORAL (Right: Temporal) Diagnosis: Temporal arteritis (HCC) (Temporal arteritis (HCC) [M31.6]) Surgeons: Torrie Choi MD Responsible Provider: Puma Madrigal MD Anesthesia Type: MAC ASA Status: 4 Anesthesia Type: MAC Last Vitals Vitals Value Taken Time BP 103/45 12/10/24 0801 Temp 12/10/24 0801 Pulse 69 12/10/24 0801 Resp 16 12/10/24 0801 SpO2 93 12/10/24 0801 Post Anesthesia Patient Status Patient Evaluation: PACU. PACU/ICU Patient Condition: stable. Anticipated Disposition: phase 2 then home. Neurological Status: aware and responsive. Pulmonary Status: breathing comfortably on room air Airway Control: returned to baseline unsupported. Cardiovascular Status: stable. Pain Management: clinically adequate - multimodal analgesia pain management approach Postoperative Hydration: acceptable. Intraoperative Events: no significant anesthesia events Post Operative Nausea/Vomiting Status: no significant post operative nausea or vomiting Recommendation: continue current plan of care. Anesthesia Observations No Documentation SIGNATURE: Puma Madrigal MD PATIENT NAME: Madiha Perales DATE: December 10, 2024 TIME: 8:01 AM CSN: [id number] Normal [facility] Basic metabolic 2000 panelon 12-10-2024 Anion gap [Moles/Vol] 8 mmol/L Normal 8-15 [facility] Comment on above: Order Comment: Speci men Type: BLOOD SPECIMENOrdering Facility: [facility] Address: [address] [place] [address] Performed By: #### 2 4321-2 ####[facility] LABORATORYCLIA [id number] [place] [address] [place] Calcium [Mass/Vol] 8.9 mg/dL Normal 8.5-10.2 [facility] Comment on above: Order Comment: Speci men Type: BLOOD SPECIMENOrdering Facility: [facility] Address: [address] [place] [address] Performed By: #### 2 4321-2 ####[facility] LABORATORYCLIA [id number] [place] [address] [place] Chloride [Moles/Vol] 104 mmol/L Normal 98-107 [facility] Comment on above: Order Comment: Yoav men Type: BLOOD SPECIMENOrdering Facility: [facility] Address: [address] [place] [address] Performed By: #### 2 4321-2 ####[facility] LABORATORYCLIA [id number] [place] [address] [place] CO2 [Moles/Vol] 30 mmol/L Normal 22-30 [facility] Comment on above: Order Comment: Speci men Type: BLOOD SPECIMENOrdering Facility: [facility] Address: [address] [place] [address] Performed By: #### 2 4321-2 ####[facility] LABORATORYCLIA [id number] [address] Creatinine [Mass/Vol] 0.74 mg/dL Normal 0.58-0.96 [facility] Comment on above: Order Comment: Yoav men Type: BLOOD SPECIMENOrdering Facility: [facility] Address: [address] [place] [address] Performed By: #### 2 4321-2 ####[facility] LABORATORYCLIA [id number] [address] Creatinine and Glomerular filtration rate.predicted panel (S/P/Bld) 83 mL/min/1.73m??? Normal >=60 [facility] Comment on above: Order Comment: Yoav tai Type: BLOOD SPECIMENOrdering Facility: [facility] Address: [address] [place] [address] Result Comment: Mateo mated Glomerular Filtration Rate (eGFR) is calculated using the 2020 CKD-EPI creatinine equation. This equation utilizes serum creatinine, sex, and age as parameters. The creatinine assay has traceable calibration to isotope dilution-mass spectrometry. Refer to KDIGO guidelines for clinical interpretation. In patients with unstable renal function, e.g. those with acute kidney injury, the eGFR may not accurately reflect actual GFR. Performed By: #### 2 4321-2 ####[facility] LABORATORYCLIA [id number] [address] [place] Glucose [Mass/Vol] 91 mg/dL Normal 74-99 [facility] Comment on above: Order Comment: Speci men Type: BLOOD SPECIMENOrdering Facility: [facility] Address: [address] [place] [address] Result Comment: The [place] Diabetes Association (ADA) provides guidance for cutoff values for fasting glucose and random glucose. The ADA defines fasting as no caloric intake for at least 8 hours. Fasting plasma glucose results between 100 to 125 mg/dL indicate increased risk for diabetes (prediabetes). Fasting plasma glucose results greater than or equal to 126 mg/dL meet the criteria for diagnosis of diabetes. In the absence of unequivocal hyperglycemia, results should be confirmed by repeat testing. In a patient with classic symptoms of hyperglycemia or hyperglycemic crisis, random plasma glucose results greater than or equal to 200 mg/dL meet the criteria for diagnosis of diabetes. Reference: Standards of Medical Care in Diabetes 2016, [place] Diabetes Association. Diabetes Care. 2016.39(Suppl 1). Performed By: #### 2 4321-2 ####[facility] LABORATORYCLIA [id number] [place] [address] [place] Potassium [Moles/Vol] 4.5 mmol/L Normal 3.7-5.1 [facility] Comment on above: Order Comment: Yoav lujan Type: BLOOD SPECIMENOrdering Facility: [facility] Address: [address] [place] [address] Performed By: #### 2 4321-2 ####[facility] LABORATORYCLIA [id number] [place] [id number] [place] Sodium [Moles/Vol] 142 mmol/L Normal 136-144 [facility] Comment on above: Order Comment: Nehemiahi men Type: BLOOD SPECIMENOrdering Facility: [facility] Address: [address] [place], [place] [address] Performed By: #### 2 4321-2 ####CON[facility] LABORATORYCLIA [id number] [place] [id number] [place] Urea nitrogen [Mass/Vol] 19 mg/dL Normal 7-21 [facility] Comment on above: Order Comment: Nehemiahi men Type: BLOOD SPECIMENOrdering Facility: [facility] Address: [address] [place] [address] Performed By: #### 2 4321-2 ####CON[facility] LABORATORYCLIA [id number] [place] [address] [place] CBC W Auto Differential pane l (Bld)on 12-10-2024 Basophils (Bld) [#/Vol] 10*3/uL Normal <0.11 M [facility] Comment on above: Order Comment: Speci men Type: BLOOD SPECIMENOrdering Facility: [facility] Address: [address] [place] [address] Performed By: #### 5 7021-8 ####[facility] LABORATORYCLIA [id number] [address] [place] Basophils/100 WBC (Bld) 0.0 % Normal [facility] Comment on above: Order Comment: Speci men Type: BLOOD SPECIMENOrdering Facility: [facility] Address: [address] [place] [address] Performed By: #### 5 7021-8 ####[facility] LABORATORYCLIA [id number] [address] Differential cell count method Nom (Bld) Auto Normal [facility] Comment on above: Order Comment: Speci men Type: BLOOD SPECIMENOrdering Facility: [facility] Address: [address] [place] [address] Performed By: #### 5 7021-8 ####[facility] LABORATORYCLIA [id number] [address] [place] Eosinophils (Bld) [#/Vol] 10*3/uL Normal <0.46 [facility] Comment on above: Order Comment: Speci men Type: BLOOD SPECIMENOrdering Facility: [facility] Address: [address] [place] [address] Performed By: #### 5 7021-8 ####[facility] LABORATORYCLIA [id number] [address] Eosinophils/100 WBC (Bld) 0.1 % Normal [facility] Comment on above: Order Comment: Speci men Type: BLOOD SPECIMENOrdering Facility: [facility] Address: [address] [place] [address] Performed By: #### 5 7021-8 ####[facility] LABORATORYCLIA [id number] [address] [place] Erythrocyte distribution width (RBC) [Ratio] 13.5 % Normal 11.5-15.0 [facility] Comment on above: Order Comment: Speci men Type: BLOOD SPECIMENOrdering Facility: [facility] Address: [address] [place] [address] Performed By: #### 5 7021-8 ####[facility] LABORATORYCLIA [id number] [address] OF C[place] Hematocrit (Bld) [Volume fraction] 38.6 % Normal 36.0-46.0 [facility] Comment on above: Order Comment: Speci men Type: BLOOD SPECIMENOrdering Facility: [facility] Address: [address] [place] [address] Performed By: #### 5 7021-8 ####[facility] LABORATORYCLIA [id number] [address] [place] Hemoglobin (Bld) [Mass/Vol] 12.6 g/dL Normal 11.5-15.5 [facility] Comment on above: Order Comment: Speci men Type: BLOOD SPECIMENOrdering Facility: [facility] Address: [address] [place] [address] Performed By: #### 5 7021-8 ####[facility] LABORATORYCLIA [id number] [address] OF CED Immature granulocytes (Bld) [#/Vol] 0.07 10*3/uL Normal <0.10 [facility] Comment on above: Order Comment: Speci men Type: BLOOD SPECIMENOrdering Facility: [facility] Address: [address] [place] [address] Performed By: #### 5 7021-8 ####[facility] LABORATORYCLIA [id number] [address] Immature granulocytes/100 WBC (Bld) 0.7 % Normal [facility] Comment on above: Order Comment: Speci men Type: BLOOD SPECIMENOrdering Facility: [facility] Address: [address] [place] [address] Performed By: #### 5 7021-8 ####[facility] LABORATORYCLIA [id number] [address] OF [place] Lymphocytes (Bld) [#/Vol] 1.36 10*3/uL Normal 1.00-4.00 [facility] Comment on above: Order Comment: Speci men Type: BLOOD SPECIMENOrdering Facility: [facility] Address: [address] [place] [address] Performed By: #### 5 7021-8 ####[facility] LABORATORYCLIA [id number] [address] Lymphocytes/100 WBC (Bld) 14.4 % Normal [facility] Comment on above: Order Comment: Speci men Type: BLOOD SPECIMENOrdering Facility: [facility] Address: [address] [place] [address] Performed By: #### 5 7021-8 ####[facility] LABORATORYCLIA [id number] [address] STATES [facility] MCH (RBC) [Entitic mass] 30.5 pg Normal 26.0-34.0 [facility] Comment on above: Order Comment: Speci men Type: BLOOD SPECIMENOrdering Facility: [facility] Address: [address] [place] [address] Performed By: #### 5 7021-8 ####[facility] LABORATORYCLIA [id number] [address] MCHC (RBC) [Mass/Vol] 32.6 g/dL Normal 30.5-36.0 [facility] Comment on above: Order Comment: Speci men Type: BLOOD SPECIMENOrdering Facility: [facility] Address: [address] [place] [address] Performed By: #### 5 7021-8 ####[facility] LABORATORYCLIA [id number] [address] MCV (RBC) [Entitic vol] 93.5 fL Normal 80.0-100.0 [facility] Comment on above: Order Comment: Speci men Type: BLOOD SPECIMENOrdering Facility: [facility] Address: [address] [place] [address] Performed By: #### 5 7021-8 ####[facility] LABORATORYCLIA [id number] [place] [address] [place] Monocytes (Bld) [#/Vol] 0.62 10*3/uL Normal <0.87 [facility] Comment on above: Order Comment: Speci men Type: BLOOD SPECIMENOrdering Facility: [facility] Address: [address] [place] [address] Performed By: #### 5 7021-8 ####[facility] LABORATORYCLIA [id number] [place] [address] [place] Monocytes/100 WBC (Bld) 6.6 % Normal [facility] Comment on above: Order Comment: Speci men Type: BLOOD SPECIMENOrdering Facility: [facility] Address: [address] [place] [address] Performed By: #### 5 7021-8 ####[facility] LABORATORYCLIA [id number] [place] [address] [place] Neutrophils (Bld) [#/Vol] 7.38 10*3/uL Normal 1.45-7.50 [facility] Comment on above: Order Comment: Speci men Type: BLOOD SPECIMENOrdering Facility: [facility] Address: [address] [place] [address] Performed By: #### 5 7021-8 ####[facility] LABORATORYCLIA [id number] [place] [address] [place] Neutrophils/100 WBC (Bld) 78.2 % Normal [facility] Comment on above: Order Comment: Speci men Type: BLOOD SPECIMENOrdering Facility: [facility] Address: [address] [place] [address] Performed By: #### 5 7021-8 ####[facility] LABORATORYCLIA [id number] [place] [address] [place] Nucleated RBC (Bld) [#/Vol] 10*3/uL Normal <0.01 [facility] Comment on above: Order Comment: Speci men Type: BLOOD SPECIMENOrdering Facility: [facility] Address: [address] [place] [address] Performed By: #### 5 7021-8 ####[facility] LABORATORYCLIA [id number] [place] [address] [place] Nucleated RBC/100 WBC (Bld) [Ratio] 0.0 /100 WBC Normal [facility] Comment on above: Order Comment: Speci men Type: BLOOD SPECIMENOrdering Facility: [facility] Address: [address] [place] [address] Performed By: #### 5 7021-8 ####[facility] LABORATORYCLIA [id number] [place] [address] [place] Platelet mean volume (Bld) [Entitic vol] 9.9 fL Normal 9.0-12.7 [facility] Comment on above: Order Comment: Speci men Type: BLOOD SPECIMENOrdering Facility: [facility] Address: [address] [place] [address] Performed By: #### 5 7021-8 ####[facility] LABORATORYCLIA [id number] [place] [address] [place] Platelets (Bld) [#/Vol] 239 10*3/uL Normal 150-400 [facility] Comment on above: Order Comment: Speci men Type: BLOOD SPECIMENOrdering Facility: [facility] Address: [address] [place] [address] Performed By: #### 5 7021-8 ####[facility] LABORATORYCLIA [id number] [place] [address] [place] RBC (Bld) [#/Vol] 4.13 10*6/uL Normal 3.90-5.20 [facility] Comment on above: Order Comment: Speci men Type: BLOOD SPECIMENOrdering Facility: [facility] Address: [address] [place] [address] Performed By: #### 5 7021-8 ####[facility] LABORATORYCLIA [id number] [place] [address] [place] WBC (Bld) [#/Vol] 9.44 10*3/uL Normal 3.70-11.00 [facility] Comment on above: Order Comment: Speci men Type: BLOOD SPECIMENOrdering Facility: [facility] Address: [address] [place] [address] Performed By: #### 5 7021-8 ####[facility] LABORATORYCLIA [id number] [place] [address] [facility] CNDSon 12-10-2024 CNDS HNO ID: [id number] Author: SHAW KINSEY MD Service: Hospital Medicine Author Type: Physician Type: Discharge Summary Filed: 12/10/2024 13:07 Note Text: DISCHARGE SUMMARY PATIENT NAME: Madiha Perales ADMISSION DATE: 12/03/2024 DISCHARGE DATE: 12/10/2024 ATTENDING PHYSICIAN: Shaw Kinsey MD Code Status: DNR-CCA, DNI PCP: Marie Devi MD Highest Readmission Risk Score: 15 The 30 day readmissions risk score is derived from an internally validated risk model which evaluates patient level characteristics, utilization history, medication orders and lab results up until the day of discharge. Patients with a score of 39 or above are considered highest risk for readmission. Specific patient level drivers will be listed at the bottom of the summary. TRANSITIONS OF CARE CRITICAL ISSUES: RO[place] MEDICATION CHANGES: See below REASON FOR HOSPITALIZATION/PRIN CIPAL DIAGNOSES: Change mental status HOSPITAL PROBLEMS: Principal Problem (Resolved): Confusion (POA: Yes) Active Problems: MARCY on CPAP (POA: Yes) History of uterine cancer (POA: Yes) Parkinsonism (POA: Yes) Malignant neoplasm of lower-outer quadrant of left breast of female, estrogen receptor positive (HCC) (POA: Yes) History of stroke (POA: Unknown) Temporal arteritis (HCC) (POA: Unknown) Resolved Problems: Leucocytosis (POA: Unknown) Hemorrhagic stroke (HCC) (POA: Unknown) Abnormal CT of brain (POA: Unknown) Acute alteration in mental status (POA: Unknown) AMS (altered mental status) (POA: Yes) Nonintractable headache (POA: Unknown) HOSPITAL COURSE: Patient at baseline Parkinson disease, she was admitted to the hospital. Encephalopathic, it took several days to recover, she was also complaining after she woke up of episodic right-sided headache, sed rate was 45 neuroimaging unremarkable EEG was read initially as unremarkable however later on neurologist determined that this is represent epileptiform disease. Patient was started on Keppra today, initially she was started also on prednisone for her headache considered as temporal arteritis biopsy were taken pending results starting prednisone 60 mg p.o. daily, discussed the case with neurology today, patient is doing fine more awake and alert denied having headache chest pain nausea vomiting fever chills, PT/OT recommended SNF however insurance company did not agree with that declining SNF placement, I did peer to peer reviewed still declining the option, patient's family will send her to SNF under private pay. Discussed the case with neurologist okay to discharge patient home continue prednisone until biopsy results of temporal arteries resulted, will add Keppra 500 mg p.o. twice daily rest of medication continue PT/OT and follow-up as outpatient with a headache clinic and also epilepsy clinic. I discussed the case with the patient, nursing staff and case management, patient will be discharged in stable condition, patient was advised to follow-up with a primary care physician and other specialist as indicated, patient was advised to come back to the hospital if experiencing any more concerns or worsening symptoms. Assesment: Acute temporal arteritis Suspected seizure Acute metabolic encephalopathy resolved Parkinson disease Chronic small vessel ischemic disease in the brain History of uterine cancer Obstructive sleep apnea History of left breast cancer estrogen receptor positive History of hemorrhagic stroke Depression/anxiety Dementia Generalized weakness and debility Plan *Patient has been seen by neurology, note was reviewed, head CT head MRI results were reviewed with the patient's family, at this time we will order stat EEG as per neurology recommendation, will order also ABG ammonia level and urine tox screen, will start patient on Ringer lactate 75 mL an hour urine looks dark. *Continue chronic home medications for blood signs *Blood work unremarkable monitor CBC BMP magnesium tomorrow *DVT prophylaxis, SCD abstain from using an antiplatelet due to the fact that history of brain hemorrhage in the past. *PT/OT evaluation for recommended SNF, patient's family in agreement *I discussed the case with the patient, nursing staff and case management, her and daughter at bedside, plan for SNF placement eventually, also patient current CODE STATUS DNR CCA DNI, I discussed the case with the patient, nursing staff and case management, hospice care in the future to be considered. Plan 12/05/2024 *More awake more alert, tolerating diet very well, had a sporadic cough her concerned about. *EEG unremarkable for seizure, recommended continue medication for Parkinson *Continue PT/OT, case management for discharge planning possibly to SNF as per family request. *Blood work was reviewed results unremarkable Plan 12/06/2024 *More awake, discussed the case with her daughter and patient's at bedside, (more content not included)... Normal [facility] CONSULT PROGon 12-10-2024 CONSULT PROG HNO ID: [id number] Author: GREG AGEE JR, MD Service: Neurology General Author Type: Physician Type: Consult Progress Note Filed: 12/10/2024 18:32 Note Text: TELENEUROLOGY CONSULT PROGRESS NOTE The Teleneurologist or RONNIE is available from 8 am to 5 pm on weekdays. On weekends, at [place] and [place], the Teleneurologist or RONNIE is available from 8 am to 5 pm, [facility] 8 am to 12 pm, [facility] 1 pm to 5 pm, [facility] 8 am to 12 pm, [place] 1 pm to 5 pm. Statutory holidays do not have teleneuro coverage. [facility] T: During Off hours for Teleneurology please page (not call) [facility] [phone] gleason operator for concerns. [facility]: During Off hours for Teleneurology please page (not call) [place] [facility] [phone] gleason operator for concerns. [facility]: There is no off-hours coverage for Teleneurology. SERVICE DATE: 12/10/2024 SERVICE TIME: 6:21 PM Subjective SERVICE: Neurology INTERVAL HPI: Patient seen earlier today. HAs now gone. Uncertain if due to gabapentin or steroids. Continuing both for now. feels patient much improved. I was initially advised that EEGs were unremarkable, but today notified of a sharp wave on EEG on 12/16/24. Per report: This EEG supports the diagnosis of bilateral cortical dysfunction in the right hemisphere and left temporoparietal region and with potential epileptogenicity in the left centroparietal region. There is also evidence of a moderate diffuse encephalopathy. No EEG seizures were recorded. Location of sharp correlates with prior CV events. As uncertainty remains of cause of prior AMS, will treat as possible seizure in ddx. Will start on Keppra 500mg BID. SE and ADRs d/w pt. Note renal function unremarkable. Results reviewed with pt and and explained significance of finding. MRV per report: Patent dural venous sinuses without significant focal narrowing or intraluminal filling defects. Objective PHYSICAL EXAM: NEUROLOGICAL EXAM: General: Awake, alert, language fluent, no dysarthria CN: PERRL, EOMI and without nystagmus, VFF to confrontation, facial sensation and strength are normal and symmetric, hearing is intact to finger rub bilaterally, palate and tongue movements are intact and symmetric. SCM and trapezius strength normal. Motor: No focal weakness. Patient Vitals for the past 24 hrs: BP Temp Temp src Pulse Resp SpO2 12/10/24 1234 114/56 36.7 ?C (98.1 ?F) Oral 72 18 95 % 12/10/24 0808 128/65 36.3 ?C (97.3 ?F) Oral 64 18 96 % 12/09/24 2155 126/71 37 ?C (98.6 ?F) Oral 66 18 97 % 12/09/24 1929 127/69 36.5 ?C (97.7 ?F) Oral 67 18 97 % Body mass index is 33.31 kg/m?. DATA: Diagnostic tests reviewed for today's visit: Most recent labs and imaging results. WBC (k/uL) Date Value 12/10/2024 9.44 12/08/2024 10.58 12/07/2024 10.27 05/18/2010 9.84 05/17/2010 10.23 05/16/2010 9.72 RBC (m/uL) Date Value 12/10/2024 4.13 12/08/2024 4.30 12/07/2024 4.20 05/18/2010 4.04 05/17/2010 4.09 05/16/2010 4.21 Platelet Count (k/uL) Date Value 12/10/2024 239 12/08/2024 207 12/07/2024 171 05/18/2010 262 05/17/2010 237 05/16/2010 259 BUN (mg/dL) Date Value 12/10/2024 19 12/08/2024 15 12/07/2024 14 05/18/2010 11 05/17/2010 13 05/16/2010 14 Creatinine (mg/dL) Date Value 12/10/2024 0.74 12/08/2024 0.51 12/07/2024 0.63 05/18/2010 0.65 05/17/2010 0.59 05/16/2010 0.64 Creatinine (POCT) (mg/dL) Date Value 09/04/2010 0.79 CBC, Coags, BMP, Mg, Phos Recent Labs 12/10/24 0453 12/10/24 0452 12/08/24 0451 NA -- 142 140 K -- 4.5 4.7 [facility]OR -- 104 104 CO2 -- 30 27 GLUC -- 91 134* CA -- 8.9 8.9 MG 2.2 -- 2.1 Liver Function, Amylase, AND Lipase Assessment/Plan Headaches that at this time are still of uncertain etiology. MRI brain performed 12/03/24 showing no evidence of an acute process. MRV yesterday unremarkable. CT brain 12/07/24 and on 12/03/24 showing no acute intracranial process. MRA 12/08/24 unremarkable. Location and pattern of headache more consistent with an occipital neuralgia. No sensitivities or symptoms associated with headache to suggest migraine or cluster. Dr. Kinsey has already initiated therapy for possible GCA - prednisione, bx. If bx supports diagnosis, would then advise Rheum consult and continuation of prednisone. However, as WSR <50, inconsistent history, if bx negative, would stop steroids (appropriate taper). Continue gabapentin 100mg TID as tolerating and no headaches.. Abnormal EEG as above, with history of AMS (? seizure or postictal state) and stroke risk factors of CV events. Starting Keppra 500mg BID. SE and ADRs d/w pt. Follow up with [facility], and Epilepsy in addition to prior follow ups arranged. Primary team aware of plan. Greg Agee MD Patient was seen using telemedicine services on this date. Examination was completed by Teleneurology video (teleMyScreen system) assisted by Teleneurology (more content not included)... Normal [facility] Magnesium SerPl-mCncon 12-10 Magnesium [Mass/Vol] 2.2 mg/dL Normal 1.7-2.3 [facility] Comment on above: Order Comment: Speci men Type: BLOOD SPECIMENOrdering Facility: [facility] Address: [facility] [place] [id number] Performed By: #### 1 9123-9 ####CON[facility] LABORATORYCLIA [id number] [place] [address] [facility] ALLIED HEALTHon 12-09-2024 ALLIED HEALTH HNO ID: [id number] Author: LILIAN SHAW CT Service: Radiology Author Type: Technologist Type: Allied Health Filed: 12/09/2024 14:19 Note Text: Radiology Service Progress Note PATIENT NAME: Madiha Perales DATE OF SERVICE: December 09, 2024 TIME: 2:18 PM PATIENT IDENTITY VERIFICATION COMPLETED USING TWO (2) IDENTIFIERS: Name and Date of confirmed by patient verbally and Name and Date of confirmed by identification band. FALL SCREENING: Has the patient had 2 falls in the last year or 1 fall with injury or currently using an Ambulatory Assistive Device (Walker, Cane, Wheelchair, Crutches, etc.)? Inpatient: Screened on floor PATIENT GENDER DATA: Assigned female at . status: : No status: NO. PATIENT RELEVANT IMPLANT DATA REVIEWED: Yes PATIENT PRESENTS WITH AN IMPLANTABLE OR ATTACHED SUPERINTENDENT SALES: No RADIOLOGY DEPARTMENT: MR; Exam(s) Completed: Head: Sagittal Sinus MRV. Aromatherapy Administered: No PERIPHERAL IV DATA: Not applicable SIGNED BY: PAULA PATTERSON [employer] December 09, 2024 2:18 PM [facility] ANES PRE-OPon 12-09-2024 ANES PRE-OP HNO ID: [id number] Author: REED COON MD Service: Anesthesiology Author Type: Anesthesiologist Type: Anesthesia Preprocedure Evaluation Filed: 12/09/2024 14:35 Note Text: ANESTHESIOLOGY DAY OF SURGERY NOTE : 1945 Procedure Information Date/Time: 12/09/245 Procedure: BIOPSY ARTERY TEMPORAL (Right: Temporal) Location: [facility] OR02 / [facility] Surgeons: Torrie Choi MD Estimated body mass index is 33.31 kg/m? as calculated from the following: Height as of this encounter: 167.6 cm (5' 6). Weight as of this encounter: 93.6 kg (206 lb 5.6 oz). Most recent hematocrit and potassium results: Hematocrit 40.2 12/08/2024 Potassium 4.7 12/08/2024 Relevant Problems ANESTHESIA (+) MARCY on CPAP CARDIO (+) Temporal arteritis (HCC) NEURO-PSYCH (+) History of stroke (+) History of uterine cancer (+) Nonintractable headache (+) Stroke (HCC) PULMONARY (+) HCAP (healthcare-associat ed pneumonia) (+) MARCY on CPAP (+) Pneumonia due to COVID-19 virus I - PHYSICAL EVALUATION AIRWAY Patient intubated: No. Tracheostomy tube not present Mallampati: III. TM distance: >3 FB. Neck ROM: full ROM without neurological symptoms. Mouth opening: adequate. Short neck: no. Thick neck: no DENTAL Normal dental observations. Dental findings: teeth intact. II - ANESTHESIA PLAN ASA Score: 4 Anesthetic Plan: MAC The patient is not a current smoker. NPO Status: adequate Beta Kesha Monitoring Plan Monitoring plan: standard ASA. Post Procedure Analgesic Plan Postoperative analgesic plan: parenteral or oral opioids and multimodal analgesia. Informed Consent Anesthetic risks, benefits, alternatives, personnel and consent discussed: yes. Patient / Responsible Libertarian agrees to proceed: yes Patient / Surrogate agrees to blood products: blood products not planned DNR status not reviewed with patient and/or family prior to surgery. Significant changes in the patient condition since the History and Physical, not otherwise documented in primary service progress note: no. Potential Anesthesia issues that may suggest increased risk of complications or contraindication to planned procedure: none. Discussed the possibility of lip / dental damage: yes No vitals data found for the desired time range. Facility-Administere d Medications as of 12/09/2024 Medication Dose Route Frequency [Transfer Hold] gabapentin 100 mg cap(s) (NEURONTIN) 100 mg ORAL q 12 H [Transfer Hold] senna-docusate 8.6-50 mg 1 tablet (SENNA-S) 1 tablet ORAL BID [Transfer Hold] polyethylene glycol 3350 17 g packet 17 g ORAL DAILY [] acetaminophen 1,000 mg tab(s) (TYLENOL) 1,000 mg ORAL Pre-Op Once [] promethazine 12.5 mg tab(s) (PHENERGAN) 12.5 mg ORAL Pre-Op Once [Transfer Hold] QUEtiapine 25 mg tab(s) (SEROquel) 25 mg ORAL AT BEDTIME PRN [Transfer Hold] predniSONE 60 mg tab(s) (DELTASONE) 60 mg ORAL DAILY [Transfer Hold] anastrozole 1 mg tab(s) (ARIMIDEX) 1 mg ORAL AT BEDTIME [Transfer Hold] acetaminophen 650 mg tab(s) (TYLENOL) 650 mg ORAL q 6 H PRN [COMPLETED] acetaminophen 650 mg tab(s) (TYLENOL) 650 mg ORAL ONCE [Transfer Hold] memantine 10 mg tab(s) (NAMENDA) 10 mg ORAL BID [Transfer Hold] lactated ringers iv infusion 75 mL/hr INTRAVENOUS CONTINUOUS [COMPLETED] NaCl 0.9% 1,000 mL iv bolus 1,000 mL INTRAVENOUS ONCE [Transfer Hold] NaCl 0.9% iv flush bag 20 mL INTRAVENOUS PRN [Transfer Hold] DULoxetine 20 mg cap(s) (CYMBALTA) 20 mg ORAL DAILY [Transfer Hold] carbidopa-levodopa 25-100 mg 1.5 tablet (SINEMET 25-100) 1.5 tablet ORAL 3 times per day [COMPLETED] carbidopa-levodopa 25-100 mg 1.5 tablet (SINEMET 25-100) 1.5 tablet ORAL ONCE Outpatient Medications as of 12/09/2024 Medication Sig anastrozole (ARIMIDEX) 1 mg tablet Take 1 mg by mouth once daily. Patient takes this at 8pm memantine (NAMENDA) 10 mg tablet Take 10 mg by mouth once daily. loratadine (CLARITIN) 10 mg tablet Take 1 tablet by mouth every afternoon. DULoxetine (CYMBALTA) 20 mg capsule Take 1 capsule (20 mg) by mouth once daily. carbidopa-levodopa (SINEMET 25-100) 25-100 mg per tablet Take 1 tablet by mouth three times a day. Take 1 tablet at 10 am, 3 pm, and 8 pm ondansetron (ZOFRAN) 8 mg tablet Take 8 mg by mouth every 8 hours as needed for nausea/vomiting. prochlorperazine (COMPAZINE) 10 mg tablet Take 10 mg by mouth every 6 hours as needed for nausea/vomiting. Multivitamin capsule Take 1 capsule by mouth once daily. I have interviewed and examined the patient. I have reviewed the medical record and/or the pre-anesthesia evaluation, pertinent labs, and test results. This contains updated information obtained within 48 hours of Surgery/Procedure. SIGNATURE: Reed Coon MD PATIENT NAME: Madiha Perales DATE: December 09, 2024 TIME: 2:35 PM CSN: [id number] [facility] BRIEF OP NOTon 12-09-2024 BRIEF OP NOT HNO ID: [id number] Author: TORRIE CHOI MD Service: General Surgery Author Type: Physician Type: Brief Op Note Filed: 12/09/2024 16:05 Note Text: BRIEF OPERATIVE / PROCEDURE NOTE LOG ID: [id number] SURGERY/PROCEDURE DATE: 12/09/2024 INCISION/PROCEDURE START TIME: 3:16 PM INCISION CLOSE/PROCEDURE END TIME: 3:48 PM SURGEON(S)/PROCEDURA LIST(S) AND AIR CHIPPER(S): Surgeons and Role: * Torrie Choi MD - Primary Physician [employer] Mechanic: No Diaz PA-C SURGERY/PROCEDURE(S) : Right temporal artery biopsy ANESTHESIA: Monitored Anesthesia Care FINDINGS: see report ESTIMATED BLOOD LOSS: 20 ml SPECIMENS: 1 COMPLICATIONS: None CLOSURE TECHNIQUE: Primary PRE-OP/PRE-PROCEDURE DIAGNOSIS: headache POST-OP/POST-PROCEDU RE DIAGNOSIS: Same as Preop # [id number] SIGNATURE: Torrie Choi MD PATIENT NAME: Madiha Perales DATE: December 09, 2024 TIME: 4:01 PM [facility] MRV BRAIN WO IVCONon 025 MRV BRAIN WO IVCON * * *Final Report* * * DATE OF EXAM: Dec 09 2024 2:29PM [facility] 0335 - MRV BRAIN WO IVCON / PROCEDURE REASON: Headache, uncomplicated (Ped 0-18y) * * * * Physician Interpretation * * * * EXAMINATION: MRV BRAIN WO IVCON CLINICAL HISTORY: Headache TECHNIQUE: 3D [id number]-[id number] MRV with post-processing performed at the modality and 2D multiplanar and 3D maximum intensity projections were created, reviewed and archived. MQ: MRAB_4 COMPARISON: MRI brain 12/03/2024. RESULT: Superior sagittal sinus, transverse sinuses bilaterally, as well as sigmoid sinuses bilaterally and jugular bulbs bilaterally are patent and without significant focal narrowing or intraluminal filling defects. Small straight sinus as well as internal cerebral veins and vein of Kenneth are patent. IMPRESSION: Patent dural venous sinuses without significant focal narrowing or intraluminal filling defects. Manager Business Continuity: PSCB Transcribe Date/Time: Dec 09 2024 2:38P Dictated by : CELI HADDAD MD This examination was interpreted and the report reviewed and electronically signed by: CELI HADDAD MD on Dec 09 2024 2:45PM EST [id number] CN Normal [facility] OPERATIVE NOon 12-09-2024 OPERATIVE NO HNO ID: [id number] Author: TORRIE CHOI MD Service: General Surgery Author Type: Physician Type: Operative Report Filed: 12/09/2024 16:44 Note Text: [facility] - Operative Report MADIHA PERALES : 1945 AGE: 79. SEX: F PATIENT TYPE: I HOSP SVC: Medical LOCATION: [facility] ATTENDING PHYSICIAN: SHAW KINSEY CSN NUMBER: [id number] DATE OF SURGERY/PROCEDURE: 12/09/2024 INCISION/PROCEDURE START TIME: 3:16 p.m. INCISION CLOSE/PROCEDURE END TIME: 3:48 p.m. PREOPERATIVE DIAGNOSIS: Headaches. POSTOPERATIVE DIAGNOSIS: Headaches. SURGEON: Torrie Choi M.D. AIR CHIPPER: SREEDHAR Nathan. SURGERY/PROCEDURE: Right temporal artery biopsy. ANESTHESIA: Monitored anesthesia. BLOOD LOSS: 20 mL. 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 She now presents for right temporal artery biopsy. Risks of procedure were explained to the patient's . These include bleeding and infection, and he would like us to proceed. The procedure was performed by myself with assistance. There were no qualified residents or follow staff available. The credit control assistant's tasks including retraction, hemostasis, and assistance with closure. DESCRIPTION OF PROCEDURE: The patient was identified and brought to the operating room, placed in supine position. After monitored anesthesia was obtained, the right temporal area was prepped and draped in sterile fashion. The skin was anesthetized with 1% lidocaine without epinephrine. Using the Doppler probe, the right temporal artery was identified. An incision was made directly over this. The dissection was carried distally using the Doppler probe to guide the direction. A 2 cm section of the artery was then exposed. Overlying vein was clipped. The temporal artery was tied off with 3-0 Vicryl and excised with cautery. This was sent to Pathology. An arterial branch was clipped and cauterized. The wound was then irrigated. There was no further bleeding. The incision was closed with 3-0 Vicryl, 5-0 Vicryl, and Dermabond. All counts were correct at the end of the case. The patient tolerated the procedure well. She was taken to recovery room in good condition. Torrie Choi M.D. JANE:[id number] /[id number] [facility] THERAPY NTon 12-09-2024 THERAPY NT HNO ID: [id number] Author: LOBITO CAVAZOS PT Service: Physical Therapy Author Type: Physical Therapist Type: Therapy (PT/OT/Speech/Resp) Filed: 12/09/2024 13:48 Note Text: Summary: PT treatment Physical Therapy Treatment Summary SERVICE DATE: 12/09/2024 SERVICE TIME: 1140 to 1219 ROOM: [id number] PT 6 Clicks Score: 13 DISCHARGE RECOMMENDATIONS Subacute/SNF Recommended Discharge Disposition Comments: Pt demonstrating limitations in her strength, endurance, balance and motor planning impacting her safety and independence with motor tasks. At baseline, patient walks with a cane and generally completes bed mobility with Earl, transfers with supervision and walking with supervision. Currently she is maximal assistance with bed mobility and unable to progress to OOB safely due to poor trunk control in unsupported sitting. She benefits from continued skilled therapy to address these limitations to increase her independence, safety and participation in motor tasks prior to returning home Recommended Discharge Disposition Due to: Functional deficits requiring ongoing therapy service prior to discharge home., Patient requires daily (5x/week) skilled therapy at next level of care., Balance deficits, Motor planning deficits, Requires multiple therapy disciplines, Functional status decline Anticipated Discharge Needs: Physical Assist at Home, Supervision at Home Physical Assist at Home for: Transfers, Ambulation, Cleaning, Laundry, Meals, Medication Management, Stairs, Safety, Self Care, Shopping, Transportation Supervision at Home due to: Decreased safety awareness, Impaired cognition Recommended Discharge Equipment: No equipment needs anticipated (anticipated SNF) ASSESSMENT Response to Therapy Interventions: Multiple Ongoing Medical Issues, Requires Additional Time to Complete Activities, Requires Encouragement to Complete Activities, Slow Progression with Functional Activities/Skills, Cognitive Deficits, Good Participation in Activities, Improved Tolerance for Activity patient still confused however min improved cognition. increased ease with moblity and improved balance/weight shift. initiated short distance amb with FWW and marching in place PRECAUTIONS Lines/Tubes/Drains, Fall Risk, Bed/Chair Alarm CURRENT HOSPITAL COURSE presented to ED after not responding to at home and being weight. ED workup showing bloodwork and imaging all largely unremarkable. CT brain showed CT brain showed extensive chronic microvascular ischemic changes and multifocal areas of encephalomalacia small focus of encephalomalacia within the right temporal lobe which is new. Significant supratentorial ventriculomegaly similar or minimally increased since 2023. MRI no evidence of acute infarct, Chest Xray neg Relevant Past Medical History: Parkinson's disease, hemorrhagic stroke, breast cancer s/p lumpectomy, uterine cancer s/p hysterectomy HOME LIVING Patient Lives With: Spouse Assistance Available: Part-Time, Other: See Comment Comments: can help her at home; goes to adult daycare 2 times a week with this most recent weeks starting to due every day Entry To Home: Stairs, With Rail Number Of Stairs Into Home: 3 Number Of Stairs To Bed/Bath: 0 Tub/Shower Type: walk in shower with grab bar and bench Laundry: main level completed by spouse Equipment Owned: Hand Held Shower, Shower Chair, Rollator, Other: See Comment, Grab Bars- Shower, Commode- Raised, Elevated Toilet Seat, Walker- Wheeled, Cane, Emergency Response System PRIOR FUNCTIONAL LEVEL Required Assistance, History of Falls Assistance Required With: Transfers, Cleaning, Laundry, Meals, Medication Management, Stairs, Safety, Self Care, Shopping, Transportation, Wheelchair Mobility Spouse and son states pt has dementia, they think it is advanced. She's unable to use AD based on cognition, leans over and falls forward thus spouse uses W/C and hand held support instead. Pt sleeps in bed, and spouse gets her and out of bed, tho pt attempted to get out and fell a few weeks ago. Just started adult day care 5 days a week, recently had gone 2 days a week and family thinks she sits in w/c and they get her to toilet. Spouse assists with toilet transfer at [facility], spouse completes hygiene, some incontinent epsidoes Pt spends all day in lift chair when not at daycare and spouse helps her out. Spouse reports 4 falls in past 6 mos. Spouse completes all chores. Got outpatient therapy but sounds like she did not progress and was d/c. They used BIG method and pt did not respond to it. Feeds herself 95% of the time. Spouse cuts food. SUBJECTIVE patient agreeable to PT, family notes patient appears less confused/more alert THERAPY DIAGNOSIS Reduced (more content not included)... Normal [facility] HEALTHon 12-08-2024 ALLIED HEALTH HNO ID: [id number] Author: LILIAN SHAW CT Service: Radiology Author Type: Technologist Type: Allied Health Filed: 12/08/2024 09:16 Note Text: Radiology Service Progress Note PATIENT NAME: Madiha Perales DATE OF SERVICE: December 08, 2024 TIME: 9:16 AM PATIENT IDENTITY VERIFICATION COMPLETED USING TWO (2) IDENTIFIERS: Name and Date of confirmed by patient verbally and Name and Date of confirmed by identification band. FALL SCREENING: Has the patient had 2 falls in the last year or 1 fall with injury or currently using an Ambulatory Assistive Device (Walker, Cane, Wheelchair, Crutches, etc.)? Inpatient: Screened on floor PATIENT GENDER DATA: Assigned female at . status: : No status: NO. PATIENT RELEVANT IMPLANT DATA REVIEWED: Yes PATIENT PRESENTS WITH AN IMPLANTABLE OR ATTACHED SUPERINTENDENT SALES: No RADIOLOGY DEPARTMENT: MR; Exam(s) Completed: Head: [place] MRA. Lavender Administered: No PERIPHERAL IV DATA: Not applicable SIGNED BY: RICHARD Viramontes December 08, 2024 9:16 AM Normal [facility] Basic metabolic 2000 panelon 12-08-2024 Anion gap [Moles/Vol] 9 mmol/L Normal 8-15 [facility] Comment on above: Order Comment: Speci men Type: BLOOD SPECIMENOrdering Facility: [facility] Address: [address] [place] [address] Performed By: #### 1 9123-9, 81935-9 ####[facility] LABORATORYCLIA [id number] [place] [address] [place] Calcium [Mass/Vol] 8.9 mg/dL Normal 8.5-10.2 [facility] Comment on above: Order Comment: Nehemiahi tai Type: BLOOD SPECIMENOrdering Facility: [facility] Address: [address] [place] [address] Performed By: #### 1 9123-9, 76421-6 ####[facility] LABORATORYCLIA [id number] [place] [address] [place] Chloride [Moles/Vol] 104 mmol/L Normal 98-107 [facility] Comment on above: Order Comment: Nehemiahi men Type: BLOOD SPECIMENOrdering Facility: [facility] Address: [address] [place] [address] Performed By: #### 1 9123-9, 73168-1 ####[facility] LABORATORYCLIA [id number] [place] [address] [place] CO2 [Moles/Vol] 27 mmol/L Normal 22-30 [facility] Comment on above: Order Comment: Nehemiahi men Type: BLOOD SPECIMENOrdering Facility: [facility] Address: [address] [place] [address] Performed By: #### 1 9123-9, 27035-6 ####[facility]ORATORYCLIA [id number] [place] [address] [place] Creatinine [Mass/Vol] 0.51 mg/dL Low 0.58-0.96 [facility] Comment on above: Order Comment: Yoav lujan Type: BLOOD SPECIMENOrdering Facility: [facility] Address: [address] [place] [address] Performed By: #### 1 9123-9, 28973-4 ####[facility] LABORATORYCLIA [id number] [place] [address] [place] Creatinine and Glomerular filtration rate.predicted panel (S/P/Bld) 96 mL/min/1.73m??? Normal >=60 [facility] Comment on above: Order Comment: Yoav lujan Type: BLOOD SPECIMENOrdering Facility: [facility] Address: [address] [place] [address] Result Comment: Mateo mated Glomerular Filtration Rate (eGFR) is calculated using the 2020 CKD-EPI creatinine equation. This equation utilizes serum creatinine, sex, and age as parameters. The creatinine assay has traceable calibration to isotope dilution-mass spectrometry. Refer to KDIGO guidelines for clinical interpretation. In patients with unstable renal function, e.g. those with acute kidney injury, the eGFR may not accurately reflect actual GFR. Performed By: #### 1 9123-9, 06190-0 ####[facility] LABORATORYCLIA [id number] [place] [id number] [place] Glucose [Mass/Vol] 134 mg/dL High 74-99 [facility] Comment on above: Order Comment: Yoav tai Type: BLOOD SPECIMENOrdering Facility: [facility] Address: [address] [place] [address] Result Comment: The [place] Diabetes Association (ADA) provides guidance for cutoff values for fasting glucose and random glucose. The ADA defines fasting as no caloric intake for at least 8 hours. Fasting plasma glucose results between 100 to 125 mg/dL indicate increased risk for diabetes (prediabetes). Fasting plasma glucose results greater than or equal to 126 mg/dL meet the criteria for diagnosis of diabetes. In the absence of unequivocal hyperglycemia, results should be confirmed by repeat testing. In a patient with classic symptoms of hyperglycemia or hyperglycemic crisis, random plasma glucose results greater than or equal to 200 mg/dL meet the criteria for diagnosis of diabetes. Reference: Standards of Medical Care in Diabetes 2016, [place] Diabetes Association. Diabetes Care. 2016.39(Suppl 1). Performed By: #### 1 9123-9, 10849-1 ####[facility] LABORATORYCLIA [id number] [place] [address] [place] Potassium [Moles/Vol] 4.7 mmol/L Normal 3.7-5.1 [facility] Comment on above: Order Comment: Speci men Type: BLOOD SPECIMENOrdering Facility: [facility] Address: [address] [place] [address] Performed By: #### 1 9123-9, 63382-6 ####[facility] LABORATORYCLIA [id number] [place] [address] [place] Sodium [Moles/Vol] 140 mmol/L Normal 136-144 [facility] Comment on above: Order Comment: Speci men Type: BLOOD SPECIMENOrdering Facility: [facility] Address: [address] [place] [address] Performed By: #### 1 9123-9, 43202-2 ####[facility] LABORATORYCLIA [id number] [place] [address] [place] Urea nitrogen [Mass/Vol] 15 mg/dL Normal 7-21 [facility] Comment on above: Order Comment: Speci men Type: BLOOD SPECIMENOrdering Facility: [facility] Address: [address] [place] [address] Performed By: #### 1 9123-9, 72721-6 ####[facility] LABORATORYCLIA [id number] [place] [address] [place] CBC W Auto Differential pane l (Bld)on 12-08-2024 Basophils (Bld) [#/Vol] 10*3/uL Normal <0.11 [facility] Comment on above: Order Comment: Speci men Type: BLOOD SPECIMENOrdering Facility: [facility] Address: [address] [place] [address] Performed By: #### 5 7021-8 ####[facility] LABORATORYCLIA [id number] [address] [place] [facility] Basophils/100 WBC (Bld) 0.1 % Normal [facility] Comment on above: Order Comment: Speci men Type: BLOOD SPECIMENOrdering Facility: [facility] Address: [address] [place] [address] Performed By: #### 5 7021-8 ####[facility] LABORATORYCLIA [id number] [place] [address] [place] Differential cell count method Nom (Bld) Auto Normal [facility] Comment on above: Order Comment: Speci men Type: BLOOD SPECIMENOrdering Facility: [facility] Address: [address] [place] [address] Performed By: #### 5 7021-8 ####[facility] LABORATORYCLIA [id number] [place] [address] [place] Eosinophils (Bld) [#/Vol] 10*3/uL Normal <0.46 [facility] Comment on above: Order Comment: Speci men Type: BLOOD SPECIMENOrdering Facility: [facility] Address: [address] [place] [address] Performed By: #### 5 7021-8 ####[facility] LABORATORYCLIA [id number] [place] [address] [place] Eosinophils/100 WBC (Bld) 0.0 % Normal [facility] Comment on above: Order Comment: Speci men Type: BLOOD SPECIMENOrdering Facility: [facility] Address: [address] [place] [address] Performed By: #### 5 7021-8 ####[facility] LABORATORYCLIA [id number] [place] [address] [place] Erythrocyte distribution width (RBC) [Ratio] 13.3 % Normal 11.5-15.0 [facility] Comment on above: Order Comment: Speci men Type: BLOOD SPECIMENOrdering Facility: [facility] Address: [address] [place] [address] Performed By: #### 5 7021-8 ####[facility] LABORATORYCLIA [id number] [place] [address] [place] Hematocrit (Bld) [Volume fraction] 40.2 % Normal 36.0-46.0 [facility] Comment on above: Order Comment: Speci men Type: BLOOD SPECIMENOrdering Facility: [facility] Address: [address] [place] [address] Performed By: #### 5 7021-8 ####[facility] LABORATORYCLIA [id number] [place] [address] [place] Hemoglobin (Bld) [Mass/Vol] 13.2 g/dL Normal 11.5-15.5 [facility] Comment on above: Order Comment: Speci men Type: BLOOD SPECIMENOrdering Facility: [facility] Address: [address] [place] [address] Performed By: #### 5 7021-8 ####[facility] LABORATORYCLIA [id number] [place] [address] [place] Immature granulocytes (Bld) [#/Vol] 0.07 10*3/uL Normal <0.10 [facility] Comment on above: Order Comment: Speci men Type: BLOOD SPECIMENOrdering Facility: [facility] Address: [address] [place] [address] Performed By: #### 5 7021-8 ####[facility] LABORATORYCLIA [id number] [place] [address] [place] Immature granulocytes/100 WBC (Bld) 0.7 % Normal [facility] Comment on above: Order Comment: Speci men Type: BLOOD SPECIMENOrdering Facility: [facility] Address: [address] [place] [address] Performed By: #### 5 7021-8 ####[facility] LABORATORYCLIA [id number] [place] [address] [place] Lymphocytes (Bld) [#/Vol] 0.71 10*3/uL Low 1.00-4.00 [facility] [facility] Comment on above: Order Comment: Speci men Type: BLOOD SPECIMENOrdering Facility: [facility] Address: [address] [place] [address] Performed By: #### 5 7021-8 ####[facility] LABORATORYCLIA [id number] [place] [address] [place] Lymphocytes/100 WBC (Bld) 6.7 % Normal [facility] Comment on above: Order Comment: Speci men Type: BLOOD SPECIMENOrdering Facility: [facility] Address: [address] [place] [address] Performed By: #### 5 7021-8 ####[facility] LABORATORYCLIA [id number] [address] STATES [facility] MCH (RBC) [Entitic mass] 30.7 pg Normal 26.0-34.0 [facility] Comment on above: Order Comment: Speci men Type: BLOOD SPECIMENOrdering Facility: [facility] Address: [address] [place] [address] Performed By: #### 5 7021-8 ####[facility] LABORATORYCLIA [id number] [address] STATES OF CED MCHC (RBC) [Mass/Vol] 32.8 g/dL Normal 30.5-36.0 [facility] Comment on above: Order Comment: Speci men Type: BLOOD SPECIMENOrdering Facility: [facility] Address: [address] [place] [address] Performed By: #### 5 7021-8 ####[facility] LABORATORYCLIA [id number] [address] STATES [facility] MCV (RBC) [Entitic vol] 93.5 fL Normal 80.0-100.0 [facility] Comment on above: Order Comment: Speci men Type: BLOOD SPECIMENOrdering Facility: [facility] Address: [address] [place] [address] Performed By: #### 5 7021-8 ####[facility] LABORATORYCLIA [id number] [address] OF CED Monocytes (Bld) [#/Vol] 0.34 10*3/uL Normal <0.87 [facility] Comment on above: Order Comment: Speci men Type: BLOOD SPECIMENOrdering Facility: [facility] Address: [address] [place] [address] Performed By: #### 5 7021-8 ####[facility] LABORATORYCLIA [id number] [address] Monocytes/100 WBC (Bld) 3.2 % Normal [facility] Comment on above: Order Comment: Speci men Type: BLOOD SPECIMENOrdering Facility: [facility] Address: [address] [place] [address] Performed By: #### 5 7021-8 ####[facility] LABORATORYCLIA [id number] [place] [address] [place] Neutrophils (Bld) [#/Vol] 9.45 10*3/uL High 1.45-7.50 [facility] Comment on above: Order Comment: Speci men Type: BLOOD SPECIMENOrdering Facility: [facility] Address: [address] [place] [address] Performed By: #### 5 7021-8 ####[facility] LABORATORYCLIA [id number] [address] OF CED Neutrophils/100 WBC (Bld) 89.3 % Normal [facility] Comment on above: Order Comment: Speci men Type: BLOOD SPECIMENOrdering Facility: [facility] Address: [address] [place] [address] Performed By: #### 5 7021-8 ####[facility] LABORATORYCLIA [id number] [place] [address] [place] Nucleated RBC (Bld) [#/Vol] 10*3/uL Normal <0.01 [facility] Comment on above: Order Comment: Speci men Type: BLOOD SPECIMENOrdering Facility: [facility] Address: [address] [place] [address] Performed By: #### 5 7021-8 ####[facility] LABORATORYCLIA [id number] [place] [address] [place] Nucleated RBC/100 WBC (Bld) [Ratio] 0.0 /100 WBC Normal [facility] Comment on above: Order Comment: Speci men Type: BLOOD SPECIMENOrdering Facility: [facility] Address: [address] [place] [address] Performed By: #### 5 7021-8 ####[facility] LABORATORYCLIA [id number] [place] [address] [place] Platelet mean volume (Bld) [Entitic vol] 10.3 fL Normal 9.0-12.7 [facility] Comment on above: Order Comment: Speci men Type: BLOOD SPECIMENOrdering Facility: [facility] Address: [address] [place] [address] Performed By: #### 5 7021-8 ####[facility]ORATORYCLIA [id number] [address] OF CED Platelets (Bld) [#/Vol] 207 10*3/uL Normal 150-400 [facility] Comment on above: Order Comment: Speci men Type: BLOOD SPECIMENOrdering Facility: [facility] Address: [address] [place] [address] Performed By: #### 5 7021-8 ####[facility] LABORATORYCLIA [id number] [address] OF [place]ED RBC (Bld) [#/Vol] 4.30 10*6/uL Normal 3.90-5.20 [facility] Comment on above: Order Comment: Speci men Type: BLOOD SPECIMENOrdering Facility: [facility] Address: [address] [place] [address] Performed By: #### 5 7021-8 ####[facility] LABORATORYCLIA [id number] [address] OF [place] WBC (Bld) [#/Vol] 10.58 10*3/uL Normal 3.70-11.00 [facility] Comment on above: Order Comment: Speci men Type: BLOOD SPECIMENOrdering Facility: [facility] Address: [address] [place] [address] Performed By: #### 5 7021-8 ####[facility] LABORATORYCLIA [id number] [address] CONSULT PROGon 12-08-2024 CONSULT PROG HNO ID: [id number] Author: GREG AGEE JR, MD Service: Neurology General Author Type: Physician Type: Consult Progress Note Filed: 12/08/2024 08:40 Note Text: TELENEUROLOGY CONSULT PROGRESS NOTE The Teleneurologist or RONNIE is available from 8 am to 5 pm on weekdays. On weekends, at [facility], the Teleneurologist or RONNIE is available from 8 am to 5 pm, [facility] 8 am to 12 pm, [facility] 1 pm to 5 pm, [facility] 8 am to 12 pm, [facility] 1 pm to 5 pm. Statutory holidays do not have teleneuro coverage. [facility]: During Off hours for Teleneurology please page (not call) [facility] [phone] gleason operator for concerns. [facility]: During Off hours for Teleneurology please page (not call) [place] [facility] [phone] gleason operator for concerns. [facility]: There is no off-hours coverage for Teleneurology. SERVICE DATE: 12/08/2024 SERVICE TIME: 8:04 AM REASON FOR CONSULT: Headache REQUESTING PHYSICIAN: Shaw Kinsey MD PRIMARY CARE PHYSICIAN: Marie Devi MD Subjective Ms. Perales is a 79 year old female previously seen by neurology with last inpatient note on 12/05/24. Records reviewed. Per Dr. De La Rosa: Patient is waking up, more alert and interacting with us. She can still be sleepy, but when she was not sleeping, her reports she is really conscious and aware. 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 Onset seems to be before 2009 Question CAA or other bleeding disorder Question Mri finding if artifact Plan unchanged from yesterday. We will request outpatient sleep medicine consult, as she does not have a sleep provider Follow up with her neurologist on her parkinsonism Stroke clinic followup for ICH, strokes, possible CAA Encourage using CPAP when sleeping at night. Best is if she could use it for naps. Records reviewed and agree with plan of Dr. De La Rosa. Neurology now consulted again for concern of possible GCA. Patient reportedly with headache, with WSR of 45. present. States headaches started 2 weeks ago. Worse since in the hospital. Somewhat limited historians in terms for frequency and duration. is indicating pain typically in back of head, R side, in region of occipital nerve. Not painful to touch. No vision changes. No photophobia or phonophobia. No definite neck pain. reports cognition fluctuates - good times nad bad times. Again, ask the duration of headache, but response is that when the headache is there, they request a tylenol and it helps. No obvious skin lesions to suggest shingles. Pain is not always there. No prominent vessels viewed. No tenderness on palpation of the temp region. No pain on palpation of the R greater occipital nerve. Further palpation on the left also without pain. then states patient sometimes has headache on left side, same location, posterior head. No significant elevation in BP on review of record. No photo or phonophobia. No N/V with headache. FUNCTIONAL STATUS: Limited most or all of the time (uses scooter, mobility device) PAST MEDICAL HISTORY Diagnosis Date Anemia Anxiety and depression 02/05/2023 Breast calcifications on mammogram 07/24/2013 Cancer (HCC) uterine Fever in adult 06/05/2023 Obesity, Class I, BMI 30-34.9 10/08/2023 MARCY on CPAP MARCY on CPAP 02/05/2023 PMH - PAST MEDICAL HISTORY OF 07/24/2005 Uterine cancer s/p hyst (no XRT/chemo needed) Senile dementia (HCC) 10/08/2023 per dgtr taking meds to slow progression Stroke (HCC) 06/23/2009 PAST SURGICAL HISTORY Procedure Laterality Date BREAST BIOPSY 06/23/1977 left breast,benign BREAST LUMPECTOMY HX Left 02/18/2023 Dr. Choi COLONOSCOPY 06/23/2012 HYSTERECTOMY HX 07/24/2005 total MAMMOTOME BIOPSY RIGHT 08/09/2013 PAST SURGICAL HISTORY OF right knee arthroscopy for torn meniscus, no hardware REMOVE CATARACT, INSERT LENS, INTRACAPSUL 06/23/2012 FAMILY HISTORY Problem Relation Age of Onset Breast Cancer Mother Cancer Mother Thyroid Mother other (htn [Other]) Mother other (hyperlipidemia [Other]) Mother other (hypothyroid [Other]) Mother Cancer Father other (lung cancer [Other]) Father other (liver cancer [Other]) Father other (healthy [Other]) Sister other (healthy [Other]) Brother Hypertension Maternal Grandmother Stroke Maternal Grandfather other (cva [Other]) Maternal Grandfather Cancer Paternal Grandmother other (brain cancer [Other]) Paternal Grandmother Colon Cancer Paternal Grandfather Anesthesia Problems No Family History Social History Tobacco Use Smoking status: Never Smokeless tobacco: Never Vaping Use Vaping status: Never Used Substance Use Topics Alcohol use: No Drug use: No anastrozole (ARIMIDEX) 1 mg tablet, Take 1 mg by mouth once daily. Patient takes this at 8pm, Disp: , Rfl: , 12/02/2024 at 8:00 PM me (more content not included)... Normal [facility] MRA BRAIN WO IVCONon 025 MRA BRAIN WO IVCON * * *Final Report* * * DATE OF EXAM: Dec 08 2024 9:30AM [facility] 0272 - MRA BRAIN WO IVCON / PROCEDURE REASON: Headache, new or worsening (Age >= 50y) * * * * Physician Interpretation * * * * EXAMINATION: MRA BRAIN WO IVCON CLINICAL HISTORY: Headache, new or worsening. TECHNIQUE: Routine noncontrast MRI brain protocol including diffusion and gradient echo images. Intracranial 3D ibii-he-gpxsag MRA with post-processing performed at the modality and 2D multiplanar and 3D maximum intensity projections were created, reviewed and archived. MQ: MRAB_4 COMPARISON: Previous CT brain December 07, 2024, MRI of the brain December 03, 2024. Extensive chronic microvascular change and multiple old infarcts. No acute findings noted on recent MRI brain. RESULT: Encephalomalacia from old left MCA territory infarct is partially included within the [id number]-[id number]-iikm on the individual partitions. INTRACRANIAL MRA: Distal internal carotid arteries are normally patent to the carotid terminus. Anterior circulation branch vessels are patent. No focal high-grade intracranial stenosis, vessel cutoff, filling defect, vascular malformation, or aneurysm. V4 segments are normally patent. Left is dominant Basilar artery is patent. Typical P1 segments. Smaller branch vessels are grossly open. No vessel cutoff, high-grade stenosis, vascular malformation, or aneurysm. IMPRESSION: Patent intracranial arterial vasculature. Manager Business Continuity: PSCB Transcribe Date/Time: Dec 08 2024 10:06A Dictated by : SHANT SUÁREZ MD This examination was interpreted and the report reviewed and electronically signed by: SHANT SUÁREZ MD on Dec 08 2024 10:11AM EST [id number] Normal [facility] Magnesium SerPl-mCncon 12-08 Magnesium [Mass/Vol] 2.1 mg/dL Normal 1.7-2.3 [facility] Comment on above: Order Comment: Speci men Type: BLOOD SPECIMENOrdering Facility: [facility] Address: [address] [id number] Performed By: #### 1 9123-9, 16481-1 ####[facility] LABORATORYCLIA [id number] [place] [id number] [facility] NUTRITIONon 12-08-2024 NUTRITION HNO ID: [id number] Author: PAULA MAXWELL RD Service: Nutrition Therapy Author Type: Registered Dietitian Type: Nutrition Filed: 12/08/2024 11:23 Note Text: NUTRITION THERAPY SCREEN NOTE SERVICE DATE: 12/08/2024 SERVICE TIME: Start Time: 934 Care Plan: Continue current diet Monitor and Evaluation: Meet greater than 75% of estimated needs Physician progress notes and labs reviewed. Intake History: Nutrition Intake Prior to Admission: Greater than 75% estimated energy needs greater than or equal to 1 month Current Nutrition Intake: Greater than 75% estimated energy needs Current Intake Over time: Greater than or equal to 5 days LOS/D5. MRI this morning. Pt scheduled for OR tomorrow for temporal artery biopsy. Family at bed side. Good appetite, eats well. No ONS use. Diet Orders (From admission, onward) Start Ordered 12/09/24 0001 DIET NPO AFTER MIDNIGHT Question Answer Comment NPO Restrictions FOR PROCEDURE NPO Restrictions EXCEPT MEDS 12/08/24 0922 12/03/24 1300 DIET REGULAR START NOW 12/03/24 1252 Anthropometrics: Height: 167.6 cm (5' 6) Weight: 93.6 kg (206 lb 5.6 oz) Usual Weight: 93.9 kg (207 lb) 02/19/24. 10/08/23 201lbs, 06/25/23 199lbs. Usual Weight Obtained From: Chart Review Weight change percentage over time: No sifnificant weight changes Lines, Drains, and Airways Drain Duration External Collection Device 12/03/24 1700 4 days MNT Billing: $ Routine Care : 1 unit Time Spent (mins): 3 SIGNATURE: Paula Maxwell RD PATIENT NAME: Madiha Perales DATE: December 08, 2024 TIME: 11:20 AM Normal [facility] ALLIED HEALTHon 12-07-2024 ALLIED HEALTH HNO ID: [id number] Author: NELSON EDWARDS, CT Service: Radiology Author Type: Technologist Type: Allied Health Filed: 12/07/2024 12:10 Note Text: Radiology Service Progress Note PATIENT NAME: Madiha Perales DATE OF SERVICE: December 07, 2024 TIME: 12:10 PM PATIENT IDENTITY VERIFICATION COMPLETED USING TWO (2) IDENTIFIERS: Name and Date of confirmed by patient verbally. FALL SCREENING: Has the patient had 2 falls in the last year or 1 fall with injury or currently using an Ambulatory Assistive Device (Walker, Cane, Wheelchair, Crutches, etc.)? Inpatient: Screened on floor PATIENT GENDER DATA: Assigned female at . status: : No status: NO. PATIENT RELEVANT IMPLANT DATA REVIEWED: Not Applicable PATIENT PRESENTS WITH AN IMPLANTABLE OR ATTACHED SUPERINTENDENT SALES: No RADIOLOGY DEPARTMENT: CT; Exam(s) Completed: Brain PERIPHERAL IV DATA: Inpatient: see LDA documentation SIGNED BY: RICHARD Jean December 07, 2024 12:10 PM Normal [facility] Basic metabolic 2000 panelon 12-07-2024 Anion gap [Moles/Vol] 8 mmol/L Normal 8-15 [facility] Comment on above: Order Comment: Yoav lujan Type: BLOOD SPECIMENOrdering Facility: [facility] Address: [address] [place] [address] Performed By: #### 2 4320-2, ####[facility] LABORATORYCLIA [id number] [place] [address] [place] [facility] Calcium [Mass/Vol] 8.5 mg/dL Normal 8.5-10.2 [facility] Comment on above: Order Comment: Yoav lujan Type: BLOOD SPECIMENOrdering Facility: [facility] Address: [address] [place] [address] Performed By: #### 2 432-2, ####[facility] LABORATORYCLIA [id number] [place] [id number] [place] Chloride [Moles/Vol] 104 mmol/L Normal 98-107 [facility] Comment on above: Order Comment: Yoav lujan Type: BLOOD SPECIMENOrdering Facility: [facility] Address: [address] [place] [address] Performed By: #### 2 4321-2, ####[facility] LABORATORYCLIA [id number] [place] [address] [place] CO2 [Moles/Vol] 29 mmol/L Normal 22-30 [facility] Comment on above: Order Comment: Speci men Type: BLOOD SPECIMENOrdering Facility: [facility] Address: [address] [place] [address] Performed By: #### 2 432-2, ####[facility] LABORATORYCLIA [id number] [address] STATES OF [place] Creatinine [Mass/Vol] 0.63 mg/dL Normal 0.58-0.96 [facility] Comment on above: Order Comment: Speci men Type: BLOOD SPECIMENOrdering Facility: [facility] Address: [address] [place] [address] Performed By: #### 2 4322, ####[facility] LABORATORYCLIA [id number] [address] Creatinine and Glomerular filtration rate.predicted panel (S/P/Bld) 91 mL/min/1.73m??? Normal >=60 [facility] Comment on above: Order Comment: Speci men Type: BLOOD SPECIMENOrdering Facility: [facility] Address: [address] [place] [address] Result Comment: Mateo mated Glomerular Filtration Rate (eGFR) is calculated using the 2020 CKD-EPI creatinine equation. This equation utilizes serum creatinine, sex, and age as parameters. The creatinine assay has traceable calibration to isotope dilution-mass spectrometry. Refer to KDIGO guidelines for clinical interpretation. In patients with unstable renal function, e.g. those with acute kidney injury, the eGFR may not accurately reflect actual GFR. Performed By: #### 2 432-2, ####[facility] LABORATORYCLIA [id number] [address] STATES OF [facility] Glucose [Mass/Vol] 92 mg/dL Normal 74-99 [facility] Comment on above: Order Comment: Speci men Type: BLOOD SPECIMENOrdering Facility: [facility] Address: [address] [place] [address] Result Comment: The [place] Diabetes Association (ADA) provides guidance for cutoff values for fasting glucose and random glucose. The ADA defines fasting as no caloric intake for at least 8 hours. Fasting plasma glucose results between 100 to 125 mg/dL indicate increased risk for diabetes (prediabetes). Fasting plasma glucose results greater than or equal to 126 mg/dL meet the criteria for diagnosis of diabetes. In the absence of unequivocal hyperglycemia, results should be confirmed by repeat testing. In a patient with classic symptoms of hyperglycemia or hyperglycemic crisis, random plasma glucose results greater than or equal to 200 mg/dL meet the criteria for diagnosis of diabetes. Reference: Standards of Medical Care in Diabetes 2016, [place] Diabetes Association. Diabetes Care. 2016.39(Suppl 1). Performed By: #### 2 4320-07, ####[facility] LABORATORYCLIA [id number] [place] [address] [place] Potassium [Moles/Vol] 4.0 mmol/L Normal 3.7-5.1 [facility] Comment on above: Order Comment: Yoav lujan Type: BLOOD SPECIMENOrdering Facility: [facility] Address: [address] [place] [address] Performed By: #### 2 4320-07, ####[facility] LABORATORYCLIA [id number] [place] [address] [place] Sodium [Moles/Vol] 141 mmol/L Normal 136-144 [facility] Comment on above: Order Comment: Yoav lujan Type: BLOOD SPECIMENOrdering Facility: [facility] Address: [address] [place] [address] Performed By: #### 2 4320-07, ####[facility] LABORATORYCLIA [id number] [place] [address] [place] Urea nitrogen [Mass/Vol] 14 mg/dL Normal 7-21 [facility] Comment on above: Order Comment: Yoav lujan Type: BLOOD SPECIMENOrdering Facility: [facility] Address: [address] [place] [address] Performed By: #### 2 4320-07, ####[facility] LABORATORYCLIA [id number] [address] CBC panel Auto (Bld)on 12-07 Erythrocyte distribution width (RBC) [Ratio] 13.9 % Normal 11.5-15.0 [facility] Comment on above: Order Comment: Speci men Type: BLOOD SPECIMENOrdering Facility: [facility] Address: [address] [place] [address] Performed By: #### 5 8410-2 ####[facility] LABORATORYCLIA [id number] [address] Hematocrit (Bld) [Volume fraction] 39.9 % Normal 36.0-46.0 [facility] Comment on above: Order Comment: Speci men Type: BLOOD SPECIMENOrdering Facility: [facility] Address: [address] [place] [address] Performed By: #### 5 8410-2 ####[facility] LABORATORYCLIA [id number] [address] Hemoglobin (Bld) [Mass/Vol] 13.0 g/dL Normal 11.5-15.5 [facility] Comment on above: Order Comment: Speci men Type: BLOOD SPECIMENOrdering Facility: [facility] Address: [address] [place] [address] Performed By: #### 5 8410-2 ####[facility] LABORATORYCLIA [id number] [address] MCH (RBC) [Entitic mass] 31.0 pg Normal 26.0-34.0 [facility] Comment on above: Order Comment: Speci men Type: BLOOD SPECIMENOrdering Facility: [facility] Address: [address] [place] [address] Performed By: #### 5 8410-2 ####[facility] LABORATORYCLIA [id number] [address] MCHC (RBC) [Mass/Vol] 32.6 g/dL Normal 30.5-36.0 [facility] Comment on above: Order Comment: Speci men Type: BLOOD SPECIMENOrdering Facility: [facility] Address: [address] [place] [address] Performed By: #### 5 8410-2 ####[facility] LABORATORYCLIA [id number] [place] [address] [place] MCV (RBC) [Entitic vol] 95.0 fL Normal 80.0-100.0 [facility] Comment on above: Order Comment: Speci men Type: BLOOD SPECIMENOrdering Facility: [facility] Address: [address] [place] [address] Performed By: #### 5 8410-2 ####[facility] LABORATORYCLIA [id number] [place] [address] [place] Nucleated RBC (Bld) [#/Vol] 10*3/uL Normal <0.01 [facility] Comment on above: Order Comment: Speci men Type: BLOOD SPECIMENOrdering Facility: [facility] Address: [address] [place] [address] Performed By: #### 5 8410-2 ####[facility] LABORATORYCLIA [id number] [address] [place] OF [place] Platelet mean volume (Bld) [Entitic vol] 9.8 fL Normal 9.0-12.7 [facility] Comment on above: Order Comment: Speci men Type: BLOOD SPECIMENOrdering Facility: [facility] Address: [address] [place] [address] Performed By: #### 5 8410-2 ####[facility] LABORATORYCLIA [id number] [address] OF [place] Platelets (Bld) [#/Vol] 171 10*3/uL Normal 150-400 [facility] Comment on above: Order Comment: Speci men Type: BLOOD SPECIMENOrdering Facility: [facility] Address: [address] [place] [address] Performed By: #### 5 8410-2 ####[facility] LABORATORYCLIA [id number] [place] [address] [facility] OF CED RBC (Bld) [#/Vol] 4.20 10*6/uL Normal 3.90-5.20 [facility] Comment on above: Order Comment: Speci men Type: BLOOD SPECIMENOrdering Facility: [facility] Address: [address] [place] [address] Performed By: #### 5 8410-2 ####[facility] LABORATORYCLIA [id number] [place] [id number] [facility] WBC (Bld) [#/Vol] 10.27 10*3/uL Normal 3.70-11.00 [facility] Comment on above: Order Comment: Speci men Type: BLOOD SPECIMENOrdering Facility: [facility] Address: [address] [place] [address] Performed By: #### 5 8410-2 ####[facility] LABORATORYCLIA [id number] [place] [address] [facility] CONSULTon 12-07-2024 CONSULT HNO ID: [id number] Author: KELTON TAYLOR DO Service: General Surgery Author Type: Physician Type: Consults Filed: 12/07/2024 21:17 Note Text: INITIAL CONSULT - GENERAL SURGERY PATIENT NAME: Madiha Perales SERVICE DATE: December 07, 2024 SERVICE TIME: 8:55 PM REASON FOR CONSULT: Temporal artery biopsy REQUESTING PHYSICIAN: Shaw Kinsey MD PRIMARY CARE PHYSICIAN: Marie Devi MD ASSESSMENT AND PLAN Problem Active Hospital Problems Diagnosis Date Noted Confusion 12/03/2024 Temporal arteritis (HCC) 12/07/2024 Acute alteration in mental status 12/05/2024 History of stroke 12/04/2024 Leucocytosis 12/03/2024 Hemorrhagic stroke (HCC) 12/03/[address] of brain 12/03/2024 MARCY on CPAP 02/05/2023 Parkinsonism 02/05/2023 Malignant neoplasm of lower-outer quadrant of left breast of female, estrogen receptor positive (HCC) 02/05/2023 History of uterine cancer 07/24/2005 Overview Note: Uterine cancer s/p hyst (no XRT/chemo needed) Assessment: 79yoF admitted w/ AMS and encephalopathy. Evaluated by teleneurology on 12/05. EEG did not show seizures or epileptiform discharges. ABG did not show CO2 narcosis. She endorsed persistent right sided headache, concern for temporal arteritis. General Surgery consulted for temporal artery biopsy. Plan: -Agree with steroid treatment per primary team -Tentatively planning for temporal artery biopsy w/ Dr. Choi on Plan of care discussed with: Provider, RN, Patient and Family/Significant Other: and Daughter. SUBJECTIVE HISTORY OF PRESENT ILLNESS: Madiha Perales is a 79 year old female with a significant past surgical and medical history of Parkinson's Disease, hemorrhagic stroke, breast cancer s/p lumpectomy, uterine cancer s/p hysterectomy. Patient presented to ED on 12/03 with AMS. Patient is poor historian. History obtained by and daughter who were bedside. reports cognitive decline since her stroke >10 years ago. However, over the past two weeks he has noticed a significant decline in her attention span. She is now very easily distracted and more forgetful. She also developed worsening right headache that is intermittent in nature. No identifiable exacerbating or alleviating causes. Over the past 2 days her altered mental status has started to improve, however the headache has persisted. PAST MEDICAL HISTORY: PAST MEDICAL HISTORY Diagnosis Date Anemia Anxiety and depression 02/05/2023 Breast calcifications on mammogram 07/24/2013 Cancer (HCC) uterine Fever in adult 06/05/2023 Obesity, Class I, BMI 30-34.9 10/08/2023 MARCY on CPAP MARCY on CPAP 02/05/2023 PMH - PAST MEDICAL HISTORY OF 07/24/2005 Uterine cancer s/p hyst (no XRT/chemo needed) Senile dementia (HCC) 10/08/2023 per dgtr taking meds to slow progression Stroke (HCC) 06/23/2009 PAST SURGICAL HISTORY: PAST SURGICAL HISTORY Procedure Laterality Date BREAST BIOPSY 06/23/1977 left breast,benign BREAST LUMPECTOMY HX Left 02/18/2023 Dr. Choi COLONOSCOPY 06/23/2012 HYSTERECTOMY HX 07/24/2005 total MAMMOTOME BIOPSY RIGHT 08/09/2013 PAST SURGICAL HISTORY OF right knee arthroscopy for torn meniscus, no hardware REMOVE CATARACT, INSERT LENS, INTRACAPSUL 06/23/2012 FAMILY HISTORY: FAMILY HISTORY Problem Relation Age of Onset Breast Cancer Mother Cancer Mother Thyroid Mother other (htn [Other]) Mother other (hyperlipidemia [Other]) Mother other (hypothyroid [Other]) Mother Cancer Father other (lung cancer [Other]) Father other (liver cancer [Other]) Father other (healthy [Other]) Sister other (healthy [Other]) Brother Hypertension Maternal Grandmother Stroke Maternal Grandfather other (cva [Other]) Maternal Grandfather Cancer Paternal Grandmother other (brain cancer [Other]) Paternal Grandmother Colon Cancer Paternal Grandfather Anesthesia Problems No Family History SOCIAL HISTORY: Social History Tobacco Use Smoking status: Never Smokeless tobacco: Never Vaping Use Vaping status: Never Used Substance Use Topics Alcohol use: No Drug use: No MEDICATIONS: anastrozole (ARIMIDEX) 1 mg tablet, Take 1 mg by mouth once daily. Patient takes this at 8pm, Disp: , Rfl: , 12/02/2024 at 8:00 PM memantine (NAMENDA) 10 mg tablet, Take 10 mg by mouth once daily., Disp: , Rfl: , 12/03/2024 loratadine (CLARITIN) 10 mg tablet, Take 1 tablet by mouth every afternoon., Disp: , Rfl: , 12/03/2024 DULoxetine (CYMBALTA) 20 mg capsule, Take 1 capsule (20 mg) by mouth once daily., Disp: , Rfl: , 12/03/2024 carbidopa-levodopa (SINEMET 25-100) 25-100 mg per tablet, Take 1 tablet by mouth three times a day. Take 1 tablet at 10 am, 3 pm, and 8 pm , Disp: , Rfl: , 12/03/2024 ondansetron (ZOFRAN) 8 mg tablet, Take 8 mg by mouth every 8 hours as needed for nausea/vomiting., Disp: , Rfl: prochlorperazine (COMPAZINE) 10 mg tablet, Take 10 mg by mouth every 6 hours (more content not included)... Normal [facility] CT BRAIN WO IVCONon 12-08-19 CT BRAIN WO IVCON * * *Final Report* * * DATE OF EXAM: Dec 07 2024 12:11PM [facility] 0504 - CT BRAIN WO IVCON / PROCEDURE REASON: Headache, sudden, severe * * * * Physician Interpretation * * * * EXAMINATION: CT BRAIN WO IVCON CLINICAL HISTORY: Sudden severe headache TECHNIQUE: Serial axial images without IV contrast were obtained from the vertex to the foramen magnum. MQ: CTBWO_3 CT Radiation dose: Integrated Dose-Length Product (DLP) for this visit = 875 mGy*cm CT Dose Reduction Employed: No dose reduction techniques were required COMPARISON: 12/03/2024 CT brain. RESULT: Post-operative change: None. Acute change: No evidence of an acute infarct or other acute parenchymal process. Hemorrhage: No evidence of acute intracranial hemorrhage. ECASS hemorrhagic transformation score: Not Applicable Mass Lesion / Mass Effect: There is no evidence of an intracranial mass or extraaxial fluid collection. No significant mass effect. Chronic change: Old low-density left occipital infarct again noted. Parenchyma: There is again generalized volume loss. Ventricles: The ventricles are within normal limits of size and configuration for age. Paranasal sinuses and skull base: Fluid or soft tissue filling of the paranasal sinuses, increased compared with previously The skull base and imaged soft tissues are unremarkable. Localizer images: Nonspecific IMPRESSION: Marked sinusitis. No other significant interval change. No intracranial mass effect or hemorrhage. Manager Business Continuity: JARVIS Transcribe Date/Time: Dec 07 2024 12:40P Dictated by : SADAF KAUR MD This examination was interpreted and the report reviewed and electronically signed by: SADAF KAUR MD on Dec 07 2024 12:43PM EST [id number] CN Normal [facility] ESR Westergren method (Bld) [Velocity]on 12-07-2024 ESR (Bld) [Velocity] 45 mm/h High 0-20 [facility] Comment on above: Order Comment: Yoav lujan Type: BLOOD SPECIMENOrdering Facility: [facility] Address: [address] [place] [address] Performed By: #### 4 537-7 ####[facility] LABCLIA [id number] [address] [place] Magnesium SerPl-mCncon 12-07 Magnesium [Mass/Vol] 2.1 mg/dL Normal 1.7-2.3 [facility] Comment on above: Order Comment: Yoav lujan Type: BLOOD SPECIMENOrdering Facility: [facility] Address: [address] [place] [address] Performed By: #### 2 4321-2, 02079-9 ####[facility] LABORATORYCLIA [id number] [place] [address] [place] THERAPY NTon 12-07-2024 THERAPY NT HNO ID: [id number] Author: LOBITO CAVAZOS PT Service: Physical Therapy Author Type: Physical Therapist Type: Therapy (PT/OT/Speech/Resp) Filed: 12/07/2024 11:41 Note Text: Summary: PT treatment/lprecert Physical Therapy Treatment Summary SERVICE DATE: 12/07/2024 SERVICE TIME: 1042 to 1117 ROOM: [id number]-0749-2 PT 6 Clicks Score: 13 DISCHARGE RECOMMENDATIONS Subacute/SNF Recommended Discharge Disposition Comments: Pt demonstrating limitations in her strength, endurance, balance and motor planning impacting her safety and independence with motor tasks. At baseline, patient walks with a cane and generally completes bed mobility with Earl, transfers with supervision and walking with supervision. Currently she is maximal assistance with bed mobility and unable to progress to OOB safely due to poor trunk control in unsupported sitting. She benefits from continued skilled therapy to address these limitations to increase her independence, safety and participation in motor tasks prior to returning home Recommended Discharge Disposition Due to: Functional deficits requiring ongoing therapy service prior to discharge home., Patient requires daily (5x/week) skilled therapy at next level of care., Balance deficits, Motor planning deficits, Requires multiple therapy disciplines, Functional status decline Anticipated Discharge Needs: Physical Assist at Home, Supervision at Home Physical Assist at Home for: Transfers, Ambulation, Cleaning, Laundry, Meals, Medication Management, Stairs, Safety, Self Care, Shopping, Transportation Supervision at Home due to: Decreased safety awareness, Impaired cognition Recommended Discharge Equipment: No equipment needs anticipated (anticipated SNF) ASSESSMENT Response to Therapy Interventions: Multiple Ongoing Medical Issues, Requires Additional Time to Complete Activities, Requires Encouragement to Complete Activities, Slow Progression with Functional Activities/Skills, Cognitive Deficits, Good Participation in Activities, Improved Tolerance for Activity patient continues to demonstrate decreased cognition. step by step cues throughout with good follow through. increased time for education and teach back and encouragement. increase ease with mobility and set goals for amb and updated existing goals based on improved performance. did not progress amb due to patient report of unsteadiness and with decreased cognition concern for assessing tolerance/safety. able to progress to marching in place muliple times with decreased ability to weight shift right and lift L LE PRECAUTIONS Lines/Tubes/Drains, Fall Risk, Bed/Chair Alarm CURRENT HOSPITAL COURSE presented to ED after not responding to at home and being weight. ED workup showing bloodwork and imaging all largely unremarkable. CT brain showed CT brain showed extensive chronic microvascular ischemic changes and multifocal areas of encephalomalacia small focus of encephalomalacia within the right temporal lobe which is new. Significant supratentorial ventriculomegaly similar or minimally increased since 2023. MRI no evidence of acute infarct, Chest Xray neg Relevant Past Medical History: Parkinson's disease, hemorrhagic stroke, breast cancer s/p lumpectomy, uterine cancer s/p hysterectomy HOME LIVING Patient Lives With: Spouse Assistance Available: Part-Time, Other: See Comment Comments: can help her at home; goes to adult daycare 2 times a week with this most recent weeks starting to due every day Entry To Home: Stairs, With Rail Number Of Stairs Into Home: 3 Number Of Stairs To Bed/Bath: 0 Tub/Shower Type: walk in shower with grab bar and bench Laundry: main level completed by spouse Equipment Owned: Hand Held Shower, Shower Chair, Rollator, Other: See Comment, Grab Bars- Shower, Commode- Raised, Elevated Toilet Seat, Walker- Wheeled, Cane, Emergency Response System PRIOR FUNCTIONAL LEVEL Required Assistance, History of Falls Assistance Required With: Transfers, Cleaning, Laundry, Meals, Medication Management, Stairs, Safety, Self Care, Shopping, Transportation, Wheelchair Mobility Spouse and son states pt has dementia, they think it is advanced. She's unable to use AD based on cognition, leans over and falls forward thus spouse uses W/C and hand held support instead. Pt sleeps in bed, and spouse gets her and out of bed, tho pt attempted to get out and fell a few weeks ago. Just started adult day care 5 days a week, recently had gone 2 days a week and family thinks she sits in w/c and they get her to toilet. Spouse assists with toilet transfer at [facility], spouse completes hygiene, some incontinent epsidoes Pt spends all day in lift chair when not at daycare and spouse helps her out. Spouse report (more content not included)... [facility] THERAPY NT HNO ID: [id number] Author: ORQUIDEA VELÁZQUEZ OT/eWst Service: Occupational Therapy Author Type: Occupational Therapist Type: Therapy (PT/OT/Speech/Resp) Filed: 12/07/2024 09:53 Note Text: Summary: OT Treatment Occupational Therapy Treatment Summary SERVICE DATE: 12/07/2024 SERVICE TIME: 924 ROOM: [id number] OT 6 Clicks Score: 9 DISCHARGE RECOMMENDATIONS Subacute/SNF Recommended Discharge Disposition Due to: Functional deficits requiring ongoing therapy service prior to discharge home., ADL impairment, Functional status decline, Requires multiple therapy disciplines Anticipated Discharge Needs: Physical Assist at Home, Supervision at Home Physical Assist at Home for: Transfers, Ambulation, Cleaning, Laundry, Meals, Medication Management, Stairs, Safety, Self Care, Shopping, Transportation Supervision at Home due to: Decreased safety awareness, Impaired cognition ASSESSMENT Response to Therapy Interventions: Cognitive Deficits, Low Activity Tolerance, Good Participation in Activities, Requires Additional Time to Complete Activities, Requires Encouragement to Complete Activities, Slow Progression with Functional Activities/Skills, Pain pt continues to be limited in indep with ADLs by cognition, decreased activity tolerance, weakness/fatigue and new onset of R side temportal lobe shooting pain; MD and RN aware. Intermittently drowsy throughout session. Supportive spouse and family at bedside. Pt continues to be below baseline with grooming tasks and would benefit from continued skilled therapies post acute stay to maximize safety and indep with ADLs. PRECAUTIONS Lines/Tubes/Drains, Fall Risk, Bed/Chair Alarm CURRENT HOSPITAL COURSE presented to ED after not responding to at home and being weight. ED workup showing bloodwork and imaging all largely unremarkable. CT brain showed CT brain showed extensive chronic microvascular ischemic changes and multifocal areas of encephalomalacia small focus of encephalomalacia within the right temporal lobe which is new. Significant supratentorial ventriculomegaly similar or minimally increased since 2023. MRI no evidence of acute infarct, Chest Xray neg Relevant Past Medical History: Parkinson's disease, hemorrhagic stroke, breast cancer s/p lumpectomy, uterine cancer s/p hysterectomy HOME LIVING Patient Lives With: Spouse Assistance Available: Part-Time, Other: See Comment Comments: can help her at home; goes to adult daycare 2 times a week with this most recent weeks starting to due every day Entry To Home: Stairs, With Rail Number Of Stairs Into Home: 3 Number Of Stairs To Bed/Bath: 0 Tub/Shower Type: walk in shower with grab bar and bench Laundry: main level completed by spouse Equipment Owned: Hand Held Shower, Shower Chair, Rollator, Other: See Comment, Grab Bars- Shower, Commode- Raised, Elevated Toilet Seat, Walker- Wheeled, Cane, Emergency Response System PRIOR FUNCTIONAL LEVEL Required Assistance, History of Falls Assistance Required With: Transfers, Cleaning, Laundry, Meals, Medication Management, Stairs, Safety, Self Care, Shopping, Transportation, Wheelchair Mobility Spouse and son states pt has dementia, they think it is advanced. She's unable to use AD based on cognition, leans over and falls forward thus spouse uses W/C and hand held support instead. Pt sleeps in bed, and spouse gets her and out of bed, tho pt attempted to get out and fell a few weeks ago. Just started adult day care 5 days a week, recently had gone 2 days a week and family thinks she sits in w/c and they get her to toilet. Spouse assists with toilet transfer at [facility], spouse completes hygiene, some incontinent epsidoes Pt spends all day in lift chair when not at daycare and spouse helps her out. Spouse reports 4 falls in past 6 mos. Spouse completes all chores. Got outpatient therapy but sounds like she did not progress and was d/c. They used BIG method and pt did not respond to it. Feeds herself 95% of the time. Spouse cuts food. Baseline Cognition: Oriented to self SUBJECTIVE RN cleared to work with pt; pt agreeable. Supportive family present throughout COGNITION Orientation Deficits: Not oriented to Person, Not oriented to Place, Not oriented to Time, Not oriented to Situation (able to state first and last name; baseline most of the time) Responsiveness: Awake Follows Commands: 1-step Commands, Cueing Needed Cueing to Follow Commands: Moderate THERAPY DIAGNOSIS Reduced mobility-other, Decreased activities of daily living (ADL), Muscle Weakness (generalized), Unsteadiness on feet, General symptoms and signs-other, Signs and Symptoms Involving Cognitive Functions and Awareness TREATMENT INTERVENTIONS Self Prison [employer]ag (more content not included)... Normal [facility] Basic metabolic 2000 panelon 12-06-2024 Anion gap [Moles/Vol] 10 mmol/L Normal 8-15 [facility] Comment on above: Order Comment: Speci men Type: BLOOD SPECIMENOrdering Facility: [facility] Address: [address] [place], [place] [address] Performed By: #### 2 43206-24, ####[facility]ORATORYCLIA [id number] [place] [address] [place] Calcium [Mass/Vol] 8.7 mg/dL Normal 8.5-10.2 [facility] Comment on above: Order Comment: Speci men Type: BLOOD SPECIMENOrdering Facility: [facility] Address: [address] [place], [place] [address] Performed By: #### 2 4321-2, ####[facility]ORATORYCLIA [id number] [place] [id number] [place] Chloride [Moles/Vol] 103 mmol/L Normal 98-107 [facility] Comment on above: Order Comment: Speci men Type: BLOOD SPECIMENOrdering Facility: [facility] Address: [address] [place] [address] Performed By: #### 2 4321-2, ####[facility]ORATORYCLIA [id number] [place] [address] [place] CO2 [Moles/Vol] 26 mmol/L Normal 22-30 [facility] Comment on above: Order Comment: Speci men Type: BLOOD SPECIMENOrdering Facility: [facility] Address: [address] [place] [address] Performed By: #### 2 4321-2, ####[facility]ATORYCLIA [id number] [address] Creatinine [Mass/Vol] 0.60 mg/dL Normal 0.58-0.96 [facility] Comment on above: Order Comment: Speci men Type: BLOOD SPECIMENOrdering Facility: [facility] Address: [address] [place] [address] Performed By: #### 2 2, ####[facility]ORATORYCLIA [id number] [address] Creatinine and Glomerular filtration rate.predicted panel (S/P/Bld) 92 mL/min/1.73m??? Normal >=60 [facility] Comment on above: Order Comment: Nehemiahi men Type: BLOOD SPECIMENOrdering Facility: [facility] Address: [address] [place] [address] Result Comment: Mateo mated Glomerular Filtration Rate (eGFR) is calculated using the 2020 CKD-EPI creatinine equation. This equation utilizes serum creatinine, sex, and age as parameters. The creatinine assay has traceable calibration to isotope dilution-mass spectrometry. Refer to KDIGO guidelines for clinical interpretation. In patients with unstable renal function, e.g. those with acute kidney injury, the eGFR may not accurately reflect actual GFR. Performed By: #### 2 4321-2, ####[facility]ATORYCLIA [id number] [place] [id number] [place] Glucose [Mass/Vol] 103 mg/dL High 74-99 [facility] Comment on above: Order Comment: Yoav lujan Type: BLOOD SPECIMENOrdering Facility: [facility] Address: [address] [place], [place] [address] Result Comment: The [place] Diabetes Association (ADA) provides guidance for cutoff values for fasting glucose and random glucose. The ADA defines fasting as no caloric intake for at least 8 hours. Fasting plasma glucose results between 100 to 125 mg/dL indicate increased risk for diabetes (prediabetes). Fasting plasma glucose results greater than or equal to 126 mg/dL meet the criteria for diagnosis of diabetes. In the absence of unequivocal hyperglycemia, results should be confirmed by repeat testing. In a patient with classic symptoms of hyperglycemia or hyperglycemic crisis, random plasma glucose results greater than or equal to 200 mg/dL meet the criteria for diagnosis of diabetes. Reference: Standards of Medical Care in Diabetes 2016, [place] Diabetes Association. Diabetes Care. 2016.39(Suppl 1). Performed By: #### 2 432-2, ####[facility] LABORATORYCLIA [id number] [place] [address] [place] Potassium [Moles/Vol] 4.0 mmol/L Normal 3.7-5.1 [facility] Comment on above: Order Comment: Yoav lujan Type: BLOOD SPECIMENOrdering Facility: [facility] Address: [address] [place], [place] [address] Performed By: #### 2 432-2, ####[facility]ORATORYCLIA [id number] [place] [id number] [place] Sodium [Moles/Vol] 139 mmol/L Normal 136-144 [facility] Comment on above: Order Comment: Yoav lujan Type: BLOOD SPECIMENOrdering Facility: [facility] Address: [address] [place] [address] Performed By: #### 2 43206-24, ####[facility]ORATORYCLIA [id number] [place] [address] [place] Urea nitrogen [Mass/Vol] 13 mg/dL Normal 7-21 [facility] Comment on above: Order Comment: Nehemiahi men Type: BLOOD SPECIMENOrdering Facility: [facility] Address: [address] [place] [address] Performed By: #### 2 4321-2, 38693-1 ####[facility]ORATORYCLIA [id number] [address] CBC panel Auto (Bld)on 12-06 Erythrocyte distribution width (RBC) [Ratio] 13.8 % Normal 11.5-15.0 [facility] Comment on above: Order Comment: Speci men Type: BLOOD SPECIMENOrdering Facility: [facility] Address: [address] [place] [address] Performed By: #### 5 8410-2 ####[facility]ATORYCLIA [id number] [address] Hematocrit (Bld) [Volume fraction] 40.6 % Normal 36.0-46.0 [facility] Comment on above: Order Comment: Speci men Type: BLOOD SPECIMENOrdering Facility: [facility] Address: [address] [place] [address] Performed By: #### 5 8410-2 ####[facility]ORATORYCLIA [id number] [address] Hemoglobin (Bld) [Mass/Vol] 13.5 g/dL Normal 11.5-15.5 [facility] Comment on above: Order Comment: Speci men Type: BLOOD SPECIMENOrdering Facility: [facility] Address: [address] [place] [address] Performed By: #### 5 8410-2 ####[facility]ORATORYCLIA [id number] [address] MCH (RBC) [Entitic mass] 31.1 pg Normal 26.0-34.0 [facility] Comment on above: Order Comment: Speci men Type: BLOOD SPECIMENOrdering Facility: [facility] Address: [address] [place] [address] Performed By: #### 5 8410-2 ####[facility]ORATORYCLIA [id number] [address] MCHC (RBC) [Mass/Vol] 33.3 g/dL Normal 30.5-36.0 [facility] Comment on above: Order Comment: Speci men Type: BLOOD SPECIMENOrdering Facility: [facility] Address: [facility] [place] [address] Performed By: #### 5 8410-2 ####[facility]ORATORYCLIA [id number] [place] [address] [place] MCV (RBC) [Entitic vol] 93.5 fL Normal 80.0-100.0 [facility] Comment on above: Order Comment: Speci men Type: BLOOD SPECIMENOrdering Facility: [facility] Address: [address] [place] [address] Performed By: #### 5 8410-2 ####[facility] LABORATORYCLIA [id number] [address] [place] Nucleated RBC (Bld) [#/Vol] 10*3/uL Normal <0.01 [facility] Comment on above: Order Comment: Speci men Type: BLOOD SPECIMENOrdering Facility: [facility] Address: [address] [place] [address] Performed By: #### 5 8410-2 ####[facility]ORATORYCLIA [id number] [address] [place] Platelet mean volume (Bld) [Entitic vol] 9.9 fL Normal 9.0-12.7 [facility] Comment on above: Order Comment: Speci men Type: BLOOD SPECIMENOrdering Facility: [facility] Address: [address] [place] [address] Performed By: #### 5 8410-2 ####[facility] LABORATORYCLIA [id number] [place] [address] [place] Platelets (Bld) [#/Vol] 183 10*3/uL Normal 150-400 [facility] Comment on above: Order Comment: Speci men Type: BLOOD SPECIMENOrdering Facility: [facility] Address: [address] [place] [address] Performed By: #### 5 8410-2 ####[facility] LABORATORYCLIA [id number] [address] [facility] RBC (Bld) [#/Vol] 4.34 10*6/uL Normal 3.90-5.20 [facility] [facility] Comment on above: Order Comment: Speci men Type: BLOOD SPECIMENOrdering Facility: [facility] Address: [address] [place] [address] Performed By: #### 5 8410-2 ####CONNER LABORATORYCLIA [id number] [address] WBC (Bld) [#/Vol] 11.94 10*3/uL High 3.70-11.00 [facility] Comment on above: Order Comment: Speci men Type: BLOOD SPECIMENOrdering Facility: [facility] Address: [address] [place] [address] Performed By: #### 5 8410-2 ####CONNER LABORATORYCLIA [id number] [address] Magnesium SerPl-mCncon 12-06 Magnesium [Mass/Vol] 2.0 mg/dL Normal 1.7-2.3 [facility] Comment on above: Order Comment: Speci men Type: BLOOD SPECIMENOrdering Facility: [facility] Address: [address] [place] [address] Performed By: #### 2 4321-2, 97615-3 ####CONNER LABORATORYCLIA [id number] [address] THERAPY NTon 12-06-2024 THERAPY NT HNO ID: [id number] Author: ORQUIDEA VELÁZQUEZ OT/West Service: Occupational Therapy Author Type: Occupational Therapist Type: Therapy (PT/OT/Speech/Resp) Filed: 12/06/2024 13:57 Note Text: OCCUPATIONAL THERAPY MISSED VISIT SERVICE DATE: 12/06/2024 SERVICE TIME: 1355 ROOM: [place] [address] Patient not seen due to Test / Procedure. EEG being complete at pt's bedside. Will re-attempt as schedule allows. CM notified as this pt has precert needs. SIGNATURE: Orquidea Velázquez OT/West PATIENT NAME: Madiha Perales DATE: December 06, 2024 TIME: 1:57 PM [facility] THERAPY NT HNO ID: [id number] Author: KATIE MACIEL CCC-UPPER DOUBLER Service: Speech/Swallow Author Type: Speech Language Pathologist Type: Therapy (PT/OT/Speech/Resp) Filed: 12/06/2024 12:41 Note Text: Summary: Dysphagia Therapy Speech Therapy Treatment SERVICE DATE: 12/06/2024 SERVICE TIME: 1209 to 1239 ROOM: [place] [address] IMPRESSION Swallow Deficits Identified / Suspected: Oral dysphagia RECOMMENDATIONS Diet Recommendations Regular Consistency, Thin Liquids IDDSI Level 0 Swallow Strategy Recommendations 1:1 Supervision, Alert (patient should be fully alert for P.O. intake), Alternate bites and sips, Small Bite/Sip, Supervision/Assistan ce for meals Nursing Recommendations Promote insight/safety opportunities, Allow for extended time for thought processing, Routine Rigid Oral Hygiene Response to Therapy Interventions: Good participation in activities, Receptive family/caregivers Rehabilitation Precautions: Cognitive Linguistics Deficits DISCHARGE RECOMMENDATIONS Recommended Discharge Disposition: No further skilled speech therapy services anticipated CURRENT HOSPITAL COURSE admitted to the hospital for confusion, altered mental status, unresponsiveness Reason for Speech Therapy Consult: concern for confusion and holding food in mouth; dysphagia Relevant Past Medical History: Uterine and breast CX, parkinsonism, hx of stroke and mulitple TIA's, FTT, respiratory failure, encephalopathy, anemia, anxiety, depression, obesity HOME ENVIRONMENT / PRIOR FUNCTIONAL LEVEL Prior Functional Level: Required Assistance Patient Lives With: Spouse Assistance Required With: Meals, Medication Management, Safety, Self Care, Transportation, Laundry Assistance Available: 24 Hour Prior Swallowing Function/Diet Textures: Regular Consistency, Thin Liquids IDDSI Level 0 (as reported and confirmed by / daughters) SUBJECTIVE Nursing clears patient for today's follow up therapeutic intervention; family at bedside and agree to treatment this date; pt is receptive to therapy this date THERAPY DIAGNOSIS Cognitive-Communicat ion Deficits, Dysphagia, oral phase TREATMENT INTERVENTIONS Dysphagia Therapy (42145) Skilled Treatment Time (minutes): 30 TRAINING AND EDUCATION PROVIDED IN Caregiver Education, Dysphagia Management, Dietary Consistencies, Results and Recommendations of Session THERAPEUTIC SKILLS USED Education on role of discipline / importance of activity, Family / caregiver counseling / training, Teach-back for confirmation of education provided OBJECTIVE Current Status Oral Hygiene: Clear, dry oral cavity Dentition: Retains Natural Dentition Current Feeding Method: Oral Current Diet Textures: Regular Consistency, Thin Liquids IDDSI Level 0 Current Level Of Communication: Verbal Current Management Of Secretions: Strong cough Oral Motor Exam: Within Functional Limits SPEECH/VOICE/LANGUAG E Vocal Quality: Clear (able to demonstrate good vocal pitch changes) SWALLOW ASSESSMENT Position Of Patient During Assessment: Upright In Bed (benefits from direct assistance to support an upright position while in bed) Feeding Method: Patient Self-Fed Consistencies Presented: Soft and Bite-Sized Solids IDDSI Level 6, Solid Response to Swallow Interventions: -appears to be able to self-manage rate and volume of PO intake this date; no change in vocal quality; - no coughing; - education provided to the family regarding dietary consistencies, strategies to support continued success with PO intake, continued assessment and monitoring of PO intake with strategies to manage successful PO intake; -family admits to baseline cognitive challenges with attention to short term memory; - pt recieves direct 24 hour support ; - pt is able to follow basic verbal directives paired with demonstration this date without difficulty Compensatory Strategies Utilized During Assessment: Self-monitoring, Feed / Eat at a slow rate GOALS COGNITION: Patient will demonstrate knowledge of taught compensatory strategies for functional cognitive-linguistic skills, SWALLOWING: Patient / Caregiver will demonstrate knowledge of taught compensatory strategies and dietary consistency recommendations to optimize functional swallow function without overt clinical signs and symptoms of aspiration or dysphagia Speech Rehab Potential: Good Progress Toward Goals: Progressing as expected Patient /Caregiver Goals: Go Home ACUTE CARE TREATMENT PLAN ST Frequency: 1 Time Per Week Treatment Interventions: Dysphagia Management, Cognitive-Linguistic Management Plan of Care Developed with: Patient, Significant Other, Nurse Plan for next visit: Dysphagia Management, Caregiver Education SIGNATURE: Katie Martin [facility]-UPPER DOUBLER PATIENT NAME: P (more content not included)... Normal [facility] Basic metabolic 2000 panelon 12-05-2024 Anion gap [Moles/Vol] 10 mmol/L Normal 8-15 [facility] Comment on above: Order Comment: Speci men Type: BLOOD SPECIMENOrdering Facility: [facility] Address: [address] [place] [address] Performed By: #### 1 91239, 51046-2 ####[facility] LABORATORYCLIA [id number] [place] [address] [place] Calcium [Mass/Vol] 8.6 mg/dL Normal 8.5-10.2 [facility] Comment on above: Order Comment: Speci men Type: BLOOD SPECIMENOrdering Facility: [facility] Address: [address] [place] [address] Performed By: #### 1 91239, 40662-0 ####BROCKWE[facility] LABORATORYCLIA [id number] [place] [address] [place] Chloride [Moles/Vol] 102 mmol/L Normal 98-107 [facility] Comment on above: Order Comment: Speci men Type: BLOOD SPECIMENOrdering Facility: [facility] Address: [address] [place] [address] Performed By: #### 1 9123-9, 31223-4 ####BROCKWE[facility] LABORATORYCLIA [id number] [place] [address] [place] CO2 [Moles/Vol] 27 mmol/L Normal 22-30 [facility] Comment on above: Order Comment: Speci men Type: BLOOD SPECIMENOrdering Facility: [facility] Address: [address] [place] [address] Performed By: #### 1 9123-9, 21535-8 ####CONNER LABORATORYCLIA [id number] [place] [address] [place] Creatinine [Mass/Vol] 0.58 mg/dL Normal 0.58-0.96 [facility] Comment on above: Order Comment: Speci men Type: BLOOD SPECIMENOrdering Facility: [facility] Address: [address] [place] [address] Performed By: #### 1 9123-9, 88726-9 ####CONNER LABORATORYCLIA [id number] [place] [address] [place] Creatinine and Glomerular filtration rate.predicted panel (S/P/Bld) 93 mL/min/1.73m??? Normal >=60 [facility] Comment on above: Order Comment: Yoav lujan Type: BLOOD SPECIMENOrdering Facility: [facility] Address: [address] [place] [address] Result Comment: Mateo mated Glomerular Filtration Rate (eGFR) is calculated using the 2020 CKD-EPI creatinine equation. This equation utilizes serum creatinine, sex, and age as parameters. The creatinine assay has traceable calibration to isotope dilution-mass spectrometry. Refer to KDIGO guidelines for clinical interpretation. In patients with unstable renal function, e.g. those with acute kidney injury, the eGFR may not accurately reflect actual GFR. Performed By: #### 1 9123-9, 27515-0 ####CONENR LABORATORYCLIA [id number] [place] [address] [place] Glucose [Mass/Vol] 100 mg/dL High 74-99 [facility] Comment on above: Order Comment: Yoav lujan Type: BLOOD SPECIMENOrdering Facility: [facility] Address: [address] [place] [address] Result Comment: The [place] Diabetes Association (ADA) provides guidance for cutoff values for fasting glucose and random glucose. The ADA defines fasting as no caloric intake for at least 8 hours. Fasting plasma glucose results between 100 to 125 mg/dL indicate increased risk for diabetes (prediabetes). Fasting plasma glucose results greater than or equal to 126 mg/dL meet the criteria for diagnosis of diabetes. In the absence of unequivocal hyperglycemia, results should be confirmed by repeat testing. In a patient with classic symptoms of hyperglycemia or hyperglycemic crisis, random plasma glucose results greater than or equal to 200 mg/dL meet the criteria for diagnosis of diabetes. Reference: Standards of Medical Care in Diabetes 2016, [place] Diabetes Association. Diabetes Care. 2016.39(Suppl 1). Performed By: #### 1 9123-9, 90538-7 ####CONNER LABORATORYCLIA [id number] [place] [address] [place] Potassium [Moles/Vol] 4.2 mmol/L Normal 3.7-5.1 [facility] Comment on above: Order Comment: Speci men Type: BLOOD SPECIMENOrdering Facility: [facility] Address: [address] [place] [address] Performed By: #### 1 9123-9, 84266-5 ####CONNER LABORATORYCLIA [id number] [address] STATES OF [facility] Sodium [Moles/Vol] 139 mmol/L Normal 136-144 [facility] Comment on above: Order Comment: Speci men Type: BLOOD SPECIMENOrdering Facility: [facility] Address: [address] [place] [address] Performed By: #### 1 9123-9, 66829-1 ####CONNER LABORATORYCLIA [id number] [address] STATES OF CED Urea nitrogen [Mass/Vol] 15 mg/dL Normal 7-21 [facility] Comment on above: Order Comment: Speci men Type: BLOOD SPECIMENOrdering Facility: [facility] Address: [address] [place] [address] Performed By: #### 1 9123-9, 49929-2 ####CONNER LABORATORYCLIA [id number] [address] STATES OF [place] CBC W Auto Differential pane l (Bld)on 12-05-2024 Basophils (Bld) [#/Vol] 0.04 10*3/uL Normal <0.11 [facility] Comment on above: Order Comment: Speci men Type: BLOOD SPECIMENOrdering Facility: [facility] Address: [address] [place] [address] Performed By: #### 5 7021-8 ####CONNER LABORATORYCLIA [id number] [address] Basophils/100 WBC (Bld) 0.4 % Normal [facility] Comment on above: Order Comment: Speci men Type: BLOOD SPECIMENOrdering Facility: [facility] Address: [address] [place] [address] Performed By: #### 5 7021-8 ####CONNER LABORATORYCLIA [id number] [place] [address] [place] [facility] CED Differential cell count method Nom (Bld) Auto Normal [facility] Comment on above: Order Comment: Speci men Type: BLOOD SPECIMENOrdering Facility: [facility] Address: [address] [place] [address] Performed By: #### 5 7021-8 ####CONNER LABORATORYCLIA [id number] [place] [address] [place] Eosinophils (Bld) [#/Vol] 0.13 10*3/uL Normal <0.46 [facility] Comment on above: Order Comment: Speci men Type: BLOOD SPECIMENOrdering Facility: [facility] Address: [address] [place] [address] Performed By: #### 5 7021-8 ####CONNER LABORATORYCLIA [id number] [place] [address] [place] Eosinophils/100 WBC (Bld) 1.3 % Normal [facility] Comment on above: Order Comment: Speci men Type: BLOOD SPECIMENOrdering Facility: [facility] Address: [address] [place] [address] Performed By: #### 5 7021-8 ####CONNER LABORATORYCLIA [id number] [address] [place] Erythrocyte distribution width (RBC) [Ratio] 13.9 % Normal 11.5-15.0 [facility] Comment on above: Order Comment: Speci men Type: BLOOD SPECIMENOrdering Facility: [facility] Address: [address] [place] [address] Performed By: #### 5 7021-8 ####CONNER LABORATORYCLIA [id number] [address] [place] Hematocrit (Bld) [Volume fraction] 41.5 % Normal 36.0-46.0 [facility] Comment on above: Order Comment: Speci men Type: BLOOD SPECIMENOrdering Facility: [facility] Address: [address] [place] [address] Performed By: #### 5 7021-8 ####CONNER LABORATORYCLIA [id number] [place] [address] [place] Hemoglobin (Bld) [Mass/Vol] 13.5 g/dL Normal 11.5-15.5 [facility] Comment on above: Order Comment: Speci men Type: BLOOD SPECIMENOrdering Facility: [facility] Address: [address] [place] [address] Performed By: #### 5 7021-8 ####CONNER LABORATORYCLIA [id number] [place] [address] [place] Immature granulocytes (Bld) [#/Vol] 0.03 10*3/uL Normal <0.10 [facility] Comment on above: Order Comment: Speci men Type: BLOOD SPECIMENOrdering Facility: [facility] Address: [address] [place] [address] Performed By: #### 5 7021-8 ####CONNER LABORATORYCLIA [id number] [place] [address] [place] Immature granulocytes/100 WBC (Bld) 0.3 % Normal [facility] Comment on above: Order Comment: Speci men Type: BLOOD SPECIMENOrdering Facility: [facility] Address: [address] [place] [address] Performed By: #### 5 7021-8 ####CONNER LABORATORYCLIA [id number] [place] [address] [place] Lymphocytes (Bld) [#/Vol] 0.96 10*3/uL Low 1.00-4.00 [facility] Comment on above: Order Comment: Speci men Type: BLOOD SPECIMENOrdering Facility: [facility] Address: [address] [place] [address] Performed By: #### 5 7021-8 ####CONNER LABORATORYCLIA [id number] [address] OF CED Lymphocytes/100 WBC (Bld) 9.6 % Normal [facility] Comment on above: Order Comment: Speci men Type: BLOOD SPECIMENOrdering Facility: [facility] Address: [address] [place] [address] Performed By: #### 5 7021-8 ####CONNER LABORATORYCLIA [id number] [address] [place] MCH (RBC) [Entitic mass] 30.7 pg Normal 26.0-34.0 [facility] Comment on above: Order Comment: Speci men Type: BLOOD SPECIMENOrdering Facility: [facility] Address: [address] [place] [address] Performed By: #### 5 7021-8 ####CONNER LABORATORYCLIA [id number] [place] [address] [place] MCHC (RBC) [Mass/Vol] 32.5 g/dL Normal 30.5-36.0 [facility] Comment on above: Order Comment: Speci men Type: BLOOD SPECIMENOrdering Facility: [facility] Address: [address] [place] [address] Performed By: #### 5 7021-8 ####CONNER LABORATORYCLIA [id number] [address] MCV (RBC) [Entitic vol] 94.3 fL Normal 80.0-100.0 [facility] Comment on above: Order Comment: Speci men Type: BLOOD SPECIMENOrdering Facility: [facility] Address: [address] [place] [address] Performed By: #### 5 7021-8 ####CONNER LABORATORYCLIA [id number] [address] STATES OF [place] Monocytes (Bld) [#/Vol] 0.92 10*3/uL High <0.87 [facility] Comment on above: Order Comment: Speci men Type: BLOOD SPECIMENOrdering Facility: [facility] Address: [address] [place] [address] Performed By: #### 5 7021-8 ####CONNER LABORATORYCLIA [id number] [address] Monocytes/100 WBC (Bld) 9.2 % Normal [facility] Comment on above: Order Comment: Speci men Type: BLOOD SPECIMENOrdering Facility: [facility] Address: [address] [place] [address] Performed By: #### 5 7021-8 ####CONNER LABORATORYCLIA [id number] [place] [address] [place] Neutrophils (Bld) [#/Vol] 7.94 10*3/uL High 1.45-7.50 [facility] Comment on above: Order Comment: Speci men Type: BLOOD SPECIMENOrdering Facility: [facility] Address: [address] [place] [address] Performed By: #### 5 7021-8 ####CONNER LABORATORYCLIA [id number] [place] [address] [place] Neutrophils/100 WBC (Bld) 79.2 % Normal [facility] Comment on above: Order Comment: Speci men Type: BLOOD SPECIMENOrdering Facility: [facility] Address: [address] [place] [address] Performed By: #### 5 7021-8 ####CONNER LABORATORYCLIA [id number] [place] [address] [place] Nucleated RBC (Bld) [#/Vol] 10*3/uL Normal <0.01 [facility] Comment on above: Order Comment: Speci men Type: BLOOD SPECIMENOrdering Facility: [facility] Address: [address] [place] [address] Performed By: #### 5 7021-8 ####CONNER LABORATORYCLIA [id number] [place] [address] [place] Nucleated RBC/100 WBC (Bld) [Ratio] 0.0 /100 WBC Normal [facility] Comment on above: Order Comment: Speci men Type: BLOOD SPECIMENOrdering Facility: [facility] Address: [address] [place] [address] Performed By: #### 5 7021-8 ####CONNER LABORATORYCLIA [id number] [place] [address] [place] Platelet mean volume (Bld) [Entitic vol] 9.8 fL Normal 9.0-12.7 [facility] Comment on above: Order Comment: Speci men Type: BLOOD SPECIMENOrdering Facility: [facility] Address: [facility] [place] [address] Performed By: #### 5 7021-8 ####CONNER LABORATORYCLIA [id number] [address] Platelets (Bld) [#/Vol] 182 10*3/uL Normal 150-400 [facility] Comment on above: Order Comment: Speci men Type: BLOOD SPECIMENOrdering Facility: [facility] Address: [address] [place] [address] Performed By: #### 5 7021-8 ####CONNER LABORATORYCLIA [id number] [address] OF [facility] RBC (Bld) [#/Vol] 4.40 10*6/uL Normal 3.90-5.20 [facility] Comment on above: Order Comment: Speci men Type: BLOOD SPECIMENOrdering Facility: [facility] Address: [address] [place] [address] Performed By: #### 5 7021-8 ####CONNER LABORATORYCLIA [id number] [address] WBC (Bld) [#/Vol] 10.02 10*3/uL Normal 3.70-11.00 [facility] Comment on above: Order Comment: Speci men Type: BLOOD SPECIMENOrdering Facility: [facility] Address: [address] [place] [address] Performed By: #### 5 7021-8 ####CONNER LABORATORYCLIA [id number] [address] CONSULT PROGon 12-05-2024 CONSULT PROG HNO ID: [id number] Author: RACHEAL DE LA ROSA MD Service: Neurology General Author Type: Physician Type: Consult Progress Note Filed: 12/05/2024 08:45 Note Text: TELENEUROLOGY CONSULT PROGRESS NOTE Patient seen using [facility]. Recommendations are placed in the chart. Please review. For questions after hours, when teleneurologist is not available, for [facility]: Please Page [phone] for the [facility] from noon to 8am Please follow normal inpatient acute stroke procedures per routine as needed. SERVICE DATE: 12/05/2024 SERVICE TIME: ATTENDING: Shaw Kinsey MD Subjective Interval History: Madiha is improved. She is awake and alert this morning. Speaking with her family appropriately. EEG yesterday did not show seizures or epileptiform discharges. ABG did not show CO2 narcosis. She waved to the camera. Her thinks she is much better than yesterday. Though it comes and goes. She is either really conscious and aware, or not responsive. LDL 84, HDL 54 Objective PHYSICAL EXAM BP 119/74 Pulse 81 Temp (Src) 98.4 (Oral) Resp 12 Ht 5' 6 (1.68m) Wt 206 lb 5.6 oz (93.6kg) SpO2 92% BMI 33.32 kg/(m2). O2 Therapy: Nasal Cannula, Liters (Numeric Only): 2.00 DATA: Diagnostic tests reviewed for today's visit: Most recent labs Latest Reference Range AND Units 12/03/24 08:03 Total Cholesterol, Nonfasting <200 mg/dL 152 Triglycerides, Nonfasting <150 mg/dL 70 HDL Cholesterol, Nonfasting >39 mg/dL 54 LDL Cholesterol Calculated, Nonfasting <100 mg/dL 84 Non HDL Cholesterol, Nonfasting <130 mg/dL 98 VLDL Cholesterol, Nonfasting <30 mg/dL 11 Total Chol/HDL Ratio, Nonfasting <5.10 mg/dL 2.81 LDL/HDL Ratio, Nonfasting <2.54 mg/dL 1.56 Impression/Recommend ations Patient is waking up, more alert and interacting with us. She can still be sleepy, but when she was not sleeping, her reports she is really conscious and aware. 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 Onset seems to be before 2009 Question CAA or other bleeding disorder Question Mri finding if artifact Plan unchanged from yesterday. We will request outpatient sleep medicine consult, as she does not have a sleep provider Follow up with her neurologist on her parkinsonism Stroke clinic followup for ICH, strokes, possible CAA Encourage using CPAP when sleeping at night. Best is if she could use it for naps. Discussed with patient's . Teleneurology will not follow this patient. Please call for additional assistance. SIGNATURE: Racheal De La Rosa MD PATIENT NAME: Madiha Perales DATE: December 05, 2024 TIME: 8:26 AM PAGER/CONTACT #: Normal [facility] Magnesium SerPl-mCncon 12-05 Magnesium [Mass/Vol] 2.1 mg/dL Normal 1.7-2.3 [facility] Comment on above: Order Comment: Speci men Type: BLOOD SPECIMENOrdering Facility: [facility] Address: [address] [place] [address] Performed By: #### 1 9123-9, 78080-7 ####BR[facility] LABORATORYCLIA [id number] [place] [address] [facility] ARTERIAL BLOOD GASESon 12-04 Carboxyhemoglobin (BldA) [Mass fraction] 1.4 % Normal 0.0-2.0 [facility] Comment on above: Order Comment: Speci men Type: ARTERIAL BLOOD SPECIMENOrdering Facility: [facility] Address: [address] [place] [address] Result Comment: Carb oxyhemoglobin Reference Range for Smokers: 2.0-8.0% Performed By: #### A LLBG ####[facility] RESPIRATORYIA [id number] [facility] RESPIRATORY [id number] [address] CO2 (Bld) [Partial pressure] 46 mm Hg Normal 36-46 [facility] Comment on above: Order Comment: Speci men Type: ARTERIAL BLOOD SPECIMENOrdering Facility: [facility] Address: [address] [place] [address] Performed By: #### A LLBG ####[facility] RESPIRATORYCLIA [id number] [facility] RESPIRATORY [id number] [address] [address] CO2 adjusted to patient's actual temperature (Bld) [Partial pressure] Normal [facility] Comment on above: Order Comment: Speci men Type: ARTERIAL BLOOD SPECIMENOrdering Facility: [facility] Address: [address] [place] [address] Performed By: #### A LLBG ####BROCKWELL RESPIRATORYIA [id number] [facility] [id number] [address] [address] HCO3 (Bld) [Moles/Vol] 31 mmol/L High 22-26 [facility] Comment on above: Order Comment: Speci men Type: ARTERIAL BLOOD SPECIMENOrdering Facility: [facility] Address: [address] [place] [address] Performed By: #### A LLBG ####[facility] [id number] [facility]OS[facility]AT[facility] [id number] [address] [address] Hemoglobin (Bld) [Mass/Vol] 14.6 g/dL Normal 11.5-15.5 [facility] Comment on above: Order Comment: Speci men Type: ARTERIAL BLOOD SPECIMENOrdering Facility: [facility] Address: [address] [place] [id number] Performed By: #### A LLBG ####[facility] [id number] [facility] [id number] [address] [address] Lactate [Moles/Vol] 0.9 mmol/L Normal 0.5-2.2 [facility] Comment on above: Order Comment: Speci men Type: ARTERIAL BLOOD SPECIMENOrdering Facility: [facility] Address: [address] [place] [address] Performed By: #### A LLBG ####[facility] [id number] [facility]OS[facility] [id number] [address] [address] LITERS 2 Liters/min Normal [facility] Comment on above: Order Comment: Speci men Type: ARTERIAL BLOOD SPECIMENOrdering Facility: [facility] Address: [address] [place] [address] Performed By: #### A LLBG ####[facility] [id number] [facility]AT[facility] [id number] [address] [address] Methemoglobin (Bld) [Mass fraction] % Normal 0.0-1.5 [facility] Comment on above: Order Comment: Speci men Type: ARTERIAL BLOOD SPECIMENOrdering Facility: [facility] Address: [address], [place] [address] Performed By: #### A LLBG ####[facility]IRATORYIA [id number] [facility] [id number] [address] [address] O2 THERAPY NC = Nasal Cannula Normal [facility] Comment on above: Order Comment: Speci men Type: ARTERIAL BLOOD SPECIMENOrdering Facility: [facility] Address: [address] [place] [address] Performed By: #### A LLBG ####[facility] [id number] [facility] [id number] [address] [address] Oxygen (Bld) [Partial pressure] 70 mm Hg Low 85-95 [facility] Comment on above: Order Comment: Speci men Type: ARTERIAL BLOOD SPECIMENOrdering Facility: [facility] Address: [address] [place] [address] Performed By: #### A LLBG ####[facility] [id number] [facility] [id number] [address] [address] Oxygen adjusted to patient's actual temperature (Bld) [Partial pressure] Normal [facility] Comment on above: Order Comment: Speci men Type: ARTERIAL BLOOD SPECIMENOrdering Facility: [facility] Address: [address] [place] [address] Performed By: #### A LLBG ####[facility] [id number] [facility] [id number] [address] [address] Oxyhemoglobin (BldA) [Mass fraction] 94 % Low 95-98 [facility] Comment on above: Order Comment: Speci men Type: ARTERIAL BLOOD SPECIMENOrdering Facility: [facility] Address: [address] [place] [address] Performed By: #### A LLBG ####[facility] [id number] [facility]IRAT[facility] [id number] [address] [address] pH (Bld) 7.43 [pH] Normal 7.35-7.45 [facility] Comment on above: Order Comment: Speci men Type: ARTERIAL BLOOD SPECIMENOrdering Facility: [facility] Address: [address] [place] [address] Performed By: #### A LLBG ####[facility]PIRATORYCLIA [id number] [facility] [id number] [address] [address] pH adjusted to patient's actual temperature (Bld) Normal [facility] Comment on above: Order Comment: Speci men Type: ARTERIAL BLOOD SPECIMENOrdering Facility: [facility] Address: [address] [place], [place] [id number] Performed By: #### A LLBG ####[facility] RESPIRATORYCLIA [id number] [facility] RES[facility] [id number] [address] [address] Potassium [Moles/Vol] 3.9 mmol/L Normal 3.5-5.0 [facility] Comment on above: Order Comment: Speci men Type: ARTERIAL BLOOD SPECIMENOrdering Facility: [facility] Address: [address] [place] [address] Performed By: #### A LLBG ####[facility] RESPIRATORYCLIA [id number] [facility] RES[facility] [id number] [address] [address] Ammonia Plas-sCncon 12-05-19 25 Ammonia (P) [Moles/Vol] 29 umol/L Normal 11-51 M [facility] Comment on above: Order Comment: Speci men Type: BLOOD SPECIMENOrdering Facility: [facility] Address: [address] [place], [place] [address] Performed By: #### 1 6362-6 ####[facility] LABORATORYCLIA [id number] [place] [address] [facility] CONSULTon 12-04-2024 CONSULT HNO ID: [id number] Author: RACHEAL DE LA ROSA MD Service: Neurology General Author Type: Physician Type: Consults Filed: 12/04/2024 13:18 Note Text: TELENEUROLOGY VISIT - New Consultation Name and :Madiha Perales 1945 Patient consented to teleneurology visit on order for consult. Patient consented in Teleneuro consult order. The Teleneurologist or RONNIE is available from 8 am to 5 pm on WEEKDAYS. During weekends, coverage is only during rounding hours. Rounding hours are: [place]: 1 pm to 5 pm [place]: 8 am to 12 pm [place]: 8 am to 12 pm [place]: 1 pm to 3 pm [place]: 1 pm to 5 pm [place]: 1 pm to 5 pm [facility]: 3 pm to 5 pm Statutory holidays do not have teleneuro coverage. [facility]/[place]/[place] T: During Off hours for Teleneurology please page (not call) [facility] [phone] gleason operator for concerns. [place]: During Off hours for Teleneurology please page (not call) [place] [facility] [phone] gleason operator for concerns. [facility]: There is no off-hours coverage for Teleneurology. Name: Madiha Perales Age: [age] year old Gender: female Chief Complaint:Mental Status Changes (Pt BIB for eval of change in MS. Pt is minimally responsive. reports s/s began last evening.) Admission Date: 12/03/2024 Consult Requested By: Anahi Polanco MD, for confusion, recommendations will be communicated by shared medical record. HPI: Madiha is a 79 year old female presenting with confusion PMH of Parkinsonis disease, hemorrhagic stroke, breast cancer s/p lumpectomy, chemotherapy and radiation in 2022, uterine cancer s/p hysterectomy, MARCY on CPAP Her and daughter are by bedside. Patient is very sleepy, not really responsive. She has incontinence that is not new. She would wet her pants every morning when he gets her up. Patient was found unresponsive by her in the morning of 12/03/2024. She would not wake up for him, and was like weight. Serological studies remarkable for WBC at 11.01 UA not suggestive of UTI Her mental status returned to baseline after receiving 1L NS in ED. Her daughter thinks she was like a different person, responding well. CXR no acute process. MRI brain on 12/03/2024 with a small questionable area in the left mesial temporal area that may be suggestive of acute ischemic infarct or artifact. There is extensive chronic small vessel ischemic disease with remote infarcts in left parietal area, with dilatation of lateral ventricle, encephalomalacia and gliosis. Also right postcentral gyrus/parietal lobe. Moderate generalized volume loss. 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 Head CT on 12/03/2024 showed a new area in right parietal lobe (also seen on MRI) that was new compared to 10/08/2023. Concerning for chronic infarct that was new since 10/08/2023. She was seen by Dr. Bolanos in stroke clinic on 06/18/2010. Old microhemorrhages were noted then, with history of bilateral ICH close in time, was atypical. Endocarditis was ruled out. At the time, the bleeding was unexplained. Repeat MRI on 06/14/2010 did not show worsening microhemorrhage compared to 05/07/2010). She was counseled to avoid antiplatelets. Since 2009, there has been a lot more remote microhemorrhage noted on her MRI on 12/03/2024 (compared to 06/14/2010). But she also has been through chemotherapy for her cancer. Her neurologist is at [facility]. She is on sinemet 1.5 tabs three times a day, duloxetine 20 mg daily and memantine 10 mg twice a day Her cognitive issues really started after her chemotherapy and surgery in March 2023. They stopped treatment in June 2023, because of intolerance to treatment. In the last month, she has much worsen. Her family also thinks her PD was much more of an issue. Her daughter thinks her PD symptoms probably started in 2009. After her ICH in 2009, her daughter noticed she was having falls. Every falls were forward. She had trouble slowing herself down. She was diagnosed with PD some time before 2022, but probably shortly after her breast cancer. She never had any tremor. When she started on sinemet, her left arm swing returned. Her shuffling gait improved, but now is worsen. She used to nap a lot, but in the last year she has not been napping as much, but in the last 6 months, she will still nap after breakfast. She was using her CPAP, until the last 3-4 weeks, she has been removing it. 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 [facility] THERAPY NTon 12-04-2024 THERAPY NT HNO ID: [id number] Author: ALAN IBANEZ OTR/Wset Service: Occupational Therapy Author Type: Occupational Therapist Type: Therapy (PT/OT/Speech/Resp) Filed: 12/04/2024 14:53 Note Text: Summary: OT Eval Occupational Therapy Evaluation Summary SERVICE DATE: 12/04/2024 SERVICE TIME: 1338 to 1428 ROOM: [id number] OT 6 Clicks Score: 9 DISCHARGE RECOMMENDATIONS Subacute/SNF Recommended Discharge Disposition Due to: Functional deficits requiring ongoing therapy service prior to discharge home., ADL impairment, Functional status decline, Requires multiple therapy disciplines Anticipated Discharge Needs: Physical Assist at Home, Supervision at Home Physical Assist at Home for: Transfers, Ambulation, Cleaning, Laundry, Meals, Medication Management, Stairs, Safety, Self Care, Shopping, Transportation Supervision at Home due to: Decreased safety awareness, Impaired cognition ASSESSMENT Response to Therapy Interventions: Cognitive Deficits, Low Activity Tolerance, Good Participation in Activities, Requires Additional Time to Complete Activities, Requires Encouragement to Complete Activities, Slow Progression with Functional Activities/Skills Pt typically dependent for all ADLs except oral care and eating, gets assist to stand pivot to w/c at baseline, presents with balance and cogntive deficits affecting self care and functional transfers. Pt requires significant cuing for one step oral care instructions this session, is total A for bed mobilty and max A for sit<>stand, retropulsive. Level of skill pt requires to return to PLOF exceeds that avaiable at home. PRECAUTIONS Lines/Tubes/Drains, Fall Risk, Bed/Chair Alarm CURRENT HOSPITAL COURSE presented to ED after not responding to at home and being weight. ED workup showing bloodwork and imaging all largely unremarkable. CT brain showed CT brain showed extensive chronic microvascular ischemic changes and multifocal areas of encephalomalacia small focus of encephalomalacia within the right temporal lobe which is new. Significant supratentorial ventriculomegaly similar or minimally increased since 2023. MRI no evidence of acute infarct, Chest Xray neg Relevant Past Medical History: Parkinson's disease, hemorrhagic stroke, breast cancer s/p lumpectomy, uterine cancer s/p hysterectomy HOME LIVING Patient Lives With: Spouse Assistance Available: Part-Time, Other: See Comment Comments: can help her at home; goes to adult daycare 2 times a week with this most recent weeks starting to due every day Entry To Home: Stairs, With Rail Number Of Stairs Into Home: 3 Number Of Stairs To Bed/Bath: 0 Tub/Shower Type: walk in shower with grab bar and bench Laundry: main level completed by spouse Equipment Owned: Hand Held Shower, Shower Chair, Rollator, Other: See Comment, Grab Bars- Shower, Commode- Raised, Elevated Toilet Seat, Walker- Wheeled, Cane, Emergency Response System PRIOR FUNCTIONAL LEVEL Required Assistance, History of Falls Assistance Required With: Transfers, Cleaning, Laundry, Meals, Medication Management, Stairs, Safety, Self Care, Shopping, Transportation, Wheelchair Mobility Spouse and son states pt has dementia, they think it is advanced. She's unable to use AD based on cognition, leans over and falls forward thus spouse uses W/C and hand held support instead. Pt sleeps in bed, and spouse gets her and out of bed, tho pt attempted to get out and fell a few weeks ago. Just started adult day care 5 days a week, recently had gone 2 days a week and family thinks she sits in w/c and they get her to toilet. Spouse assists with toilet transfer at [facility], spouse completes hygiene, some incontinent epsidoes Pt spends all day in lift chair when not at daycare and spouse helps her out. Spouse reports 4 falls in past 6 mos. Spouse completes all chores. Got outpatient therapy but sounds like she did not progress and was d/c. They used BIG method and pt did not respond to it. Feeds herself 95% of the time. Spouse cuts food. Baseline Cognition: Oriented to self SUBJECTIVE Pt pleasant, oriented to first and last name only COGNITION Orientation Deficits: Not oriented to Person, Not oriented to Place, Not oriented to Time, Not oriented to Situation, Other: See Comment (baseline- to name only most of the time) Responsiveness: Awake Follows Commands: 1-step Commands, With Increased Time, With Repetition, Cueing Needed Cueing to Follow Commands: Maximum THERAPY DIAGNOSIS Reduced mobility-other, Decreased activities of daily living (ADL), Muscle Weakness (generalized), Unsteadiness on feet, General symptoms and signs-other, Signs and Symptoms Involving Cognitive Functions and Awareness TREATMENT INTERVENTIONS Evaluation, Therapeutic (more content not included)... [facility] THERAPY NT HNO ID: [id number] Author: MIGEL HYATT, [facility]PP[facility] DOU[facility] Service: Speech/Swallow Author Type: Speech Language Pathologist Type: Therapy (PT/OT/Speech/Resp) Filed: 12/04/2024 12:43 Note Text: Speech Therapy Clinical Swallow Evaluation, Speech Evaluation SERVICE DATE: 12/04/2024 SERVICE TIME: 1158 to 1239 ROOM: [place] [address] IMPRESSION Functional communication without limitations in: Speech, Language, Voice, Fluency Communication deficits identified: Cognitive-Linguistic deficits, Cognitive deficits Functional oropharyngeal phases of swallowing: without identified risk for aspiration Swallow Deficits Identified / Suspected: Oral dysphagia RECOMMENDATIONS Diet Recommendations Regular Consistency, Thin Liquids IDDSI Level 0 Swallow Strategy Recommendations 1:1 Supervision, Alert (patient should be fully alert for P.O. intake), Alternate bites and sips, Small Bite/Sip, Supervision/Assistan ce for meals Nursing Recommendations Promote insight/safety opportunities, Allow for extended time for thought processing, Routine Rigid Oral Hygiene Instrumental Swallow Study Recommendations Recommended Consults Response to Therapy Interventions: Good participation in activities Rehabilitation Precautions: Cognitive Linguistics Deficits DISCHARGE RECOMMENDATIONS Recommended Discharge Disposition: Continued Skilled Speech Therapy CURRENT HOSPITAL COURSE Reason for Speech Therapy Consult: concern for confusion and holding food in mouth Relevant Past Medical History: Uterine and breast CX, parkinsonism, hx of stroke and mulitple TIA's, FTT, respiratory failure, encephalopathy HOME ENVIRONMENT / PRIOR FUNCTIONAL LEVEL Prior Functional Level: Required Assistance Patient Lives With: Spouse Prior Swallowing Function/Diet Textures: Regular Consistency, Thin Liquids IDDSI Level 0 SUBJECTIVE I am doing ok patient's daughter and state when UPPER DOUBLER woke pt up and spoke with her for a minute that it was the most responsive pt had been since being admitted to the hospital THERAPY DIAGNOSIS Cognitive-Communicat ion Deficits, Dysphagia, oral phase TREATMENT INTERVENTIONS Speech Language Eval (79697), Clinical Swallow Evaluation (91929) Skilled Treatment Time (minutes): 41 TRAINING AND EDUCATION PROVIDED IN Cognitive Linguistic Strategies, Dietary Consistencies, Dysphagia Management, Results and Recommendations of Session, Swallowing Strategies THERAPEUTIC SKILLS USED Education on role of discipline / importance of activity, Family / caregiver counseling / training, Discharge planning, Instruction in self-monitoring / self-assessment, Modified behavior for increased success, Verbal cuing OBJECTIVE Current Status Oral Hygiene: Clear, dry oral cavity Dentition: Retains Natural Dentition Current Feeding Method: Oral Current Diet Textures: Regular Consistency, Thin Liquids IDDSI Level 0 Current Level Of Communication: Verbal Current Management Of Secretions: Strong cough Oral Motor Exam: Within Functional Limits COGNITION Cognitive Status: Within Functional Limits For Current Session Except Cognitive Deficits: Orientation Deficits, Memory Deficits, Attention Deficit Orientation Deficits: Place, Time, Situation, Confused Attention Deficit: Distractable Memory Deficits: Short Term SWALLOW ASSESSMENT Position Of Patient During Assessment: Upright In Bed Feeding Method: Patient Self-Fed (Pt's states this is the first time pt has self fed since before being admitted to the hospital) Consistencies Presented: Thin Liquids IDDSI Level 0, Soft and Bite-Sized Solids IDDSI Level 6, Solid Soft and Bite-Sized Solids Oral Phase: Mild Oral Residue Solid Oral Phase: Mild Oral Residue Response to Swallow Interventions: Pt pleasently confused, unable to state where she was, able to state 's name but unable to state that he was her until given choices (is this your or your brother?) Pt would often look to when asked questions, even personal questions such as How are you today? and would sometimes give inappropriate responses such as answering this is good (referencing the food she was eating) to Do you understand? Pt was able to self feed when handed utensils. Pt tolerated all trials with no overt s/sx of aspiration but did have mild oral residue between bites. Pt's states that although pt was doing well durring session, she was not doing well last night or this morning when being fed and he mentioned that pt often chews when nothing is in her mouth. UPPER DOUBLER recommends follow up for cognition and assurance of tolerance of regular diet. Compensatory Strategies Utilized During Assessment: 1:1 Supervision, Alert (patient should be fully alert for P.O. intake), Alternate bites and sips, Small Bite/Sip Marta Swallow Protocol: Pass Suspected Esophageal Deficits: none suspected GOALS COGNITION: Patient will demonstrate knowledge of (more content not included)... [facility] THERAPY NT HNO ID: [id number] Author: ALAN IBANEZ OTR/West Service: Occupational Therapy Author Type: Occupational Therapist Type: Therapy (PT/OT/Speech/Resp) Filed: 12/04/2024 10:25 Note Text: Summary: OT MV OCCUPATIONAL THERAPY MISSED VISIT SERVICE DATE: 12/04/2024 SERVICE TIME: 1024 ROOM: [place] [address] Patient not seen due to Patient Not Available. Neuro at bedside. Will reattempt as schedule permits. SIGNATURE: VIVIENNE Jiménez/West PATIENT NAME: Madiha Perales DATE: December 04, 2024 TIME: 10:24 AM [facility] THERAPY NT HNO ID: [id number] Author: GAYE PACHECO PT Service: Physical Therapy Author Type: Physical Therapist Type: Therapy (PT/OT/Speech/Resp) Filed: 12/04/2024 09:20 Note Text: Summary: PT Evaluation Physical Therapy Evaluation Summary SERVICE DATE: 12/04/2024 SERVICE TIME: 836 to 905 ROOM: [id number] PT 6 Clicks Score: 8 DISCHARGE RECOMMENDATIONS Subacute/SNF Recommended Discharge Disposition Comments: Pt demonstrating limitations in her strength, endurance, balance and motor planning impacting her safety and independence with motor tasks. At baseline, patient walks with a cane and generally completes bed mobility with Earl, transfers with supervision and walking with supervision. Currently she is maximal assistance with bed mobility and unable to progress to OOB safely due to poor trunk control in unsupported sitting. She benefits from continued skilled therapy to address these limitations to increase her independence, safety and participation in motor tasks prior to returning home Recommended Discharge Disposition Due to: Functional deficits requiring ongoing therapy service prior to discharge home., Patient requires daily (5x/week) skilled therapy at next level of care., Balance deficits, Motor planning deficits, Requires multiple therapy disciplines, Functional status decline Anticipated Discharge Needs: Physical Assist at Home, Supervision at Home Physical Assist at Home for: Transfers, Ambulation, Cleaning, Laundry, Meals, Medication Management, Stairs, Safety, Self Care, Shopping, Transportation Supervision at Home due to: Decreased safety awareness, Impaired cognition Recommended Discharge Equipment: No equipment needs anticipated (anticipated SNF) ASSESSMENT Response to Therapy Interventions: Limited Participation, Low Activity Tolerance, Multiple Ongoing Medical Issues, Needs Frequent Redirection or Reinstruction, Requires Additional Time to Complete Activities, Requires Encouragement to Complete Activities, Slow Progression with Functional Activities/Skills Pt demonstrates significant limitations in her strength, balance, motor planning and endurance requiring maximal assistance to complete motor tasks. She inconsistently follows 1-step commands with extended time and repeated cues. Patient with limited active mobility and requiring maximal assistance with all bed mobility. She demonstrates poor trunk control in sitting maintaining unsupported sitting up to 20 seconds after initially positioned and most of the time needing CGA to Earl to prevent falls. She benefits from continued skilled therapy to address these limitations to increase her independence and safety with motor tasks. PRECAUTIONS Lines/Tubes/Drains, Fall Risk, Bed/Chair Alarm CURRENT HOSPITAL COURSE presented to ED after not responding to at home and being weight. ED workup showing bloodwork and imaging all largely unremarkable. CT brain showed CT brain showed extensive chronic microvascular ischemic changes and multifocal areas of encephalomalacia small focus of encephalomalacia within the right temporal lobe which is new. Significant supratentorial ventriculomegaly similar or minimally increased since 2023. MRI no evidence of acute infarct Relevant Past Medical History: Parkinson's disease, hemorrhagic stroke, breast cancer s/p lumpectomy, uterine cancer s/p hysterectomy HOME LIVING Patient Lives With: Spouse Assistance Available: Part-Time, Other: See Comment Comments: can help her at home; goes to adult daycare 2 times a week with this most recent weeks starting to due every day Entry To Home: Stairs, With Rail Number Of Stairs Into Home: 3 (with bilateral rail) Number Of Stairs To Bed/Bath: 0 Tub/Shower Type: walk in shower with grab bar and bench Laundry: main level completed by spouse Equipment Owned: Hand Held Shower, Shower Chair, Rollator, Other: See Comment, Grab Bars- Shower, Commode- Raised, Elevated Toilet Seat, Walker- Wheeled, Cane, Emergency Response System PRIOR FUNCTIONAL LEVEL Required Assistance, History of Falls Assistance Required With: Transfers, Cleaning, Laundry, Meals, Medication Management, Stairs, Safety, Self Care, Shopping, Transportation History provided by patient's . Pt needs help with all ADLs, IADLs and transportation. Patient needs assistance with bed mobility. She mainly completes sit to stand independently. She ambulates with cane and supervision. Unable to manage walker safely and fell with use. Will attempt to walk without a device in the home. Has had 4-5 falls in the past 6 months including rolling out of bed. Sleeps in flat bed. Goes to adult daycare recently started to transition to 5 days a week SUBJECTIVE Nursing okay PT eval; pt ag (more content not included)... Normal [facility] TOXICOLOGY SCREEN, ROUTINE U RINEon 12-04-2024 Amphetamines Confirm (U) [Mass/Vol] Negative Normal Negative [facility] Comment on above: Order Comment: Speci men Type: URINE SPECIMENOrdering Facility: [facility] Address: [address] [place] [address] Result Comment: Cuto ff threshold at 1000 ng/mL. Performed By: #### U TOX2 ####[facility] LABORATORYCLIA [id number] [place] [address] [place] BARBITURATES, URINE Negative Normal Negative [facility] Comment on above: Order Comment: Speci men Type: URINE SPECIMENOrdering Facility: [facility] Address: [address] [place] [address] Result Comment: Cuto ff threshold at 200 ng/mL. Performed By: #### U TOX2 ####[facility] LABORATORYCLIA [id number] [place] [address] [place] BENZODIAZEPINES, UR Negative Normal Negative [facility] Comment on above: Order Comment: Speci men Type: URINE SPECIMENOrdering Facility: [facility] Address: [address] [place] [address] Result Comment: Cuto ff threshold at 200 ng/mL. Performed By: #### U TOX2 ####[facility] LABORATORYCLIA [id number] [place] [address] [place] Cannabinoids Screen Ql (U) Negative Normal Negative [facility] Comment on above: Order Comment: Speci men Type: URINE SPECIMENOrdering Facility: [facility] Address: [address] [place] [address] Result Comment: Cuto ff threshold at 50 ng/mL. Performed By: #### U TOX2 ####[facility] LABORATORYCLIA [id number] [place] [address] [place] Cocaine Ql (U) Negative Normal Negative [facility] Comment on above: Order Comment: Speci men Type: URINE SPECIMENOrdering Facility: [facility] Address: [address] [place] [address] Result Comment: Cuto ff threshold at 300 ng/mL. Performed By: #### U TOX2 ####[facility] LABORATORYCLIA [id number] [place] [address] [place] Ethanol (U) [Mass/Vol] <11 Normal <11 [facility] Comment on above: Order Comment: Speci men Type: URINE SPECIMENOrdering Facility: [facility] Address: [address] [place] [address] Performed By: #### U TOX2 ####[facility] LABORATORYCLIA [id number] [place] [address] [place] Opiates Screen Ql (U) Negative Normal Negative [facility] Comment on above: Order Comment: Speci men Type: URINE SPECIMENOrdering Facility: [facility] Address: [address] [place] [address] Result Comment: Cuto ff threshold at 300 ng/mL. Performed By: #### U TOX2 ####[facility] LABORATORYCLIA [id number] [address] [place] oxyCODONE cutoff Screen (U) [Mass/Vol] Negative Normal Negative [facility] Comment on above: Order Comment: Speci men Type: URINE SPECIMENOrdering Facility: [facility] Address: [address] [place] [address] Result Comment: Cuto ff threshold at 100 ng/mL. Performed By: #### U TOX2 ####[facility] LABORATORYCLIA [id number] [address] [place] Phencyclidine Ql (U) Negative Normal Negative [facility] Comment on above: Order Comment: Speci men Type: URINE SPECIMENOrdering Facility: [facility] Address: [address] [place] [address] Result Comment: Cuto ff threshold at 25 ng/mL. Performed By: #### U TOX2 ####[facility] LABORATORYCLIA [id number] [place] [address] [place] ALLIED HEALTHon 12-03-2024 [facility] HNO ID: [id number] Author: LILIAN SHAW CT Service: Radiology Author Type: Technologist Type: [facility] Filed: 12/03/2024 18:00 Note Text: Radiology Service Progress Note PATIENT NAME: Madiha Perales DATE OF SERVICE: December 03, 2024 TIME: 6:00 PM PATIENT IDENTITY VERIFICATION COMPLETED USING TWO (2) IDENTIFIERS: Name and Date of confirmed by patient verbally and Name and Date of confirmed by identification band. FALL SCREENING: Has the patient had 2 falls in the last year or 1 fall with injury or currently using an Ambulatory Assistive Device (Walker, Cane, Wheelchair, Crutches, etc.)? Inpatient: Screened on floor PATIENT GENDER DATA: Assigned female at . status: : No status: NO. PATIENT RELEVANT IMPLANT DATA REVIEWED: Yes PATIENT PRESENTS WITH AN IMPLANTABLE OR ATTACHED SUPERINTENDENT SALES: No RADIOLOGY DEPARTMENT: MR; Exam(s) Completed: Head: Routine Brain. Lavender Administered: No PERIPHERAL IV DATA: Not applicable SIGNED BY: RICHARD Viramontes December 03, 2024 6:00 PM [facility] HNO ID: [id number] Author: PAULA WOODS TECHNOLOGIST Service: Radiology Author Type: Technologist Type: [facility] Filed: 12/03/2024 08:24 Note Text: Radiology Service Progress Note PATIENT NAME: Madiha Perales DATE OF SERVICE: December 03, 2024 TIME: 8:23 AM PATIENT IDENTITY VERIFICATION COMPLETED USING TWO (2) IDENTIFIERS: Name and Date of confirmed by identification band. FALL SCREENING: Has the patient had 2 falls in the last year or 1 fall with injury or currently using an Ambulatory Assistive Device (Walker, Cane, Wheelchair, Crutches, etc.)? Emergency Room Patient: Screened in ED PATIENT GENDER DATA: Assigned female at . status: : No status: NO. PATIENT RELEVANT IMPLANT DATA REVIEWED: Yes PATIENT PRESENTS WITH AN IMPLANTABLE OR ATTACHED SUPERINTENDENT SALES: No RADIOLOGY DEPARTMENT: CT; Exam(s) Completed: Brain PERIPHERAL IV DATA: Not applicable Removed pt wedding ring per 's request. Ring given to in ER room 10 SIGNED BY: TECHNOLOGIST Roland December 03, 2024 8:23 AM [facility] HNO ID: [id number] Author: DENNIS WHITTEN Tech Service: Radiology Author Type: Party Director Type: [facility] Filed: 12/03/2024 08:19 Note Text: Radiology Service Progress Note PATIENT NAME: Madiha Perales DATE OF SERVICE: December 03, 2024 TIME: 8:18 AM PATIENT IDENTITY VERIFICATION COMPLETED USING TWO (2) IDENTIFIERS: Name and Date of confirmed by identification band. FALL SCREENING: Has the patient had 2 falls in the last year or 1 fall with injury or currently using an Ambulatory Assistive Device (Walker, Cane, Wheelchair, Crutches, etc.)? Emergency Room Patient: Screened in ED PATIENT GENDER DATA: Assigned female at . status: : No status: NO. PATIENT RELEVANT IMPLANT DATA REVIEWED: Not Applicable PATIENT PRESENTS WITH AN IMPLANTABLE OR ATTACHED SUPERINTENDENT SALES: No RADIOLOGY DEPARTMENT: General X-ray: Exam(s) Completed: Chest X-Ray PERIPHERAL IV DATA: Not applicable SIGNED BY: Lobo Knight December 03, 2024 8:18 AM Normal [facility] CBC W Auto Differential pane l (Bld)on 12-03-2024 Basophils (Bld) [#/Vol] 0.04 10*3/uL Normal <0.11 [facility] Comment on above: Order Comment: Speci tai Type: BLOOD SPECIMENOrdering Facility: [facility] Address: [address] [place] [address] Performed By: #### 5 7021-8 ####[facility] LABORATORYCLIA [id number] [place] [address] [place] Basophils/100 WBC (Bld) 0.4 % Normal [facility] Comment on above: Order Comment: Speci men Type: BLOOD SPECIMENOrdering Facility: [facility] Address: [address] [place] [address] Performed By: #### 5 7021-8 ####[facility] LABORATORYCLIA [id number] [place] [address] [place] Differential cell count method Nom (Bld) Auto Normal [facility] Comment on above: Order Comment: Speci men Type: BLOOD SPECIMENOrdering Facility: [facility] Address: [address] [place] [address] Performed By: #### 5 7021-8 ####[facility] LABORATORYCLIA [id number] [place] [address] [place] Eosinophils (Bld) [#/Vol] 0.08 10*3/uL Normal <0.46 [facility] Comment on above: Order Comment: Speci men Type: BLOOD SPECIMENOrdering Facility: [facility] Address: [address] [place] [address] Performed By: #### 5 7021-8 ####[facility] LABORATORYCLIA [id number] [address] OF [place]ED Eosinophils/100 WBC (Bld) 0.7 % Normal [facility] Comment on above: Order Comment: Speci men Type: BLOOD SPECIMENOrdering Facility: [facility] Address: [address] [place] [address] Performed By: #### 5 7021-8 ####[facility] LABORATORYCLIA [id number] [address] [place] Erythrocyte distribution width (RBC) [Ratio] 14.0 % Normal 11.5-15.0 [facility] Comment on above: Order Comment: Speci men Type: BLOOD SPECIMENOrdering Facility: [facility] Address: [address] [place] [address] Performed By: #### 5 7021-8 ####[facility] LABORATORYCLIA [id number] [address] OF [place] Hematocrit (Bld) [Volume fraction] 44.6 % Normal 36.0-46.0 [facility] Comment on above: Order Comment: Speci men Type: BLOOD SPECIMENOrdering Facility: [facility] Address: [address] [place] [address] Performed By: #### 5 7021-8 ####[facility] LABORATORYCLIA [id number] [address] OF [place] Hemoglobin (Bld) [Mass/Vol] 14.6 g/dL Normal 11.5-15.5 [facility] Comment on above: Order Comment: Speci men Type: BLOOD SPECIMENOrdering Facility: [facility] Address: [address] [place] [address] Performed By: #### 5 7021-8 ####[facility] LABORATORYCLIA [id number] [place] [address] [place] Immature granulocytes (Bld) [#/Vol] 10*3/uL Normal <0.10 [facility] Comment on above: Order Comment: Speci men Type: BLOOD SPECIMENOrdering Facility: [facility] Address: [address] [place] [address] Performed By: #### 5 7021-8 ####[facility] LABORATORYCLIA [id number] [address] [place] Immature granulocytes/100 WBC (Bld) 0.2 % Normal [facility] Comment on above: Order Comment: Speci men Type: BLOOD SPECIMENOrdering Facility: [facility] Address: [address] [place] [address] Performed By: #### 5 7021-8 ####[facility] LABORATORYCLIA [id number] [place] [address] [place] Lymphocytes (Bld) [#/Vol] 0.83 10*3/uL Low 1.00-4.00 [facility] Comment on above: Order Comment: Speci men Type: BLOOD SPECIMENOrdering Facility: [facility] Address: [address] [place] [address] Performed By: #### 5 7021-8 ####[facility] LABORATORYCLIA [id number] [address] Lymphocytes/100 WBC (Bld) 7.5 % Normal [facility] Comment on above: Order Comment: Speci men Type: BLOOD SPECIMENOrdering Facility: [facility] Address: [address] [place] [address] Performed By: #### 5 7021-8 ####[facility] LABORATORYCLIA [id number] [place] [address] [place] MCH (RBC) [Entitic mass] 30.9 pg Normal 26.0-34.0 [facility] Comment on above: Order Comment: Speci men Type: BLOOD SPECIMENOrdering Facility: [facility] Address: [address] [place] [address] Performed By: #### 5 7021-8 ####[facility] LABORATORYCLIA [id number] [address] MCHC (RBC) [Mass/Vol] 32.7 g/dL Normal 30.5-36.0 [facility] Comment on above: Order Comment: Speci men Type: BLOOD SPECIMENOrdering Facility: [facility] Address: [address] [place] [address] Performed By: #### 5 7021-8 ####[facility] LABORATORYCLIA [id number] [address] MCV (RBC) [Entitic vol] 94.5 fL Normal 80.0-100.0 [facility] Comment on above: Order Comment: Speci men Type: BLOOD SPECIMENOrdering Facility: [facility] Address: [address] [place] [address] Performed By: #### 5 7021-8 ####[facility] LABORATORYCLIA [id number] [address] Monocytes (Bld) [#/Vol] 0.67 10*3/uL Normal <0.87 [facility] Comment on above: Order Comment: Speci men Type: BLOOD SPECIMENOrdering Facility: [facility] Address: [address] [place] [address] Performed By: #### 5 7021-8 ####[facility] LABORATORYCLIA [id number] [address] Monocytes/100 WBC (Bld) 6.1 % Normal [facility] Comment on above: Order Comment: Speci men Type: BLOOD SPECIMENOrdering Facility: [facility] Address: [address] [place] [address] Performed By: #### 5 7021-8 ####[facility] LABORATORYCLIA [id number] [address] Neutrophils (Bld) [#/Vol] 9.37 10*3/uL High 1.45-7.50 [facility] Comment on above: Order Comment: Speci men Type: BLOOD SPECIMENOrdering Facility: [facility] Address: [address] [place] [address] Performed By: #### 5 7021-8 ####[facility] LABORATORYCLIA [id number] [address] [place] Neutrophils/100 WBC (Bld) 85.1 % Normal [facility] Comment on above: Order Comment: Speci men Type: BLOOD SPECIMENOrdering Facility: [facility] Address: [address] [place] [address] Performed By: #### 5 7021-8 ####CON[facility] LABORATORYCLIA [id number] [place] [address] [place] Nucleated RBC (Bld) [#/Vol] 10*3/uL Normal <0.01 [facility] Comment on above: Order Comment: Speci men Type: BLOOD SPECIMENOrdering Facility: [facility] Address: [address] [place] [address] Performed By: #### 5 7021-8 ####[facility] LABORATORYCLIA [id number] [address] [place] Nucleated RBC/100 WBC (Bld) [Ratio] 0.0 /100 WBC Normal [facility] Comment on above: Order Comment: Speci men Type: BLOOD SPECIMENOrdering Facility: [facility] Address: [address] [place] [address] Performed By: #### 5 7021-8 ####CON[facility] LABORATORYCLIA [id number] [place] [address] [place] Platelet mean volume (Bld) [Entitic vol] 9.8 fL Normal 9.0-12.7 [facility] Comment on above: Order Comment: Speci men Type: BLOOD SPECIMENOrdering Facility: [facility] Address: [address] [place] [address] Performed By: #### 5 7021-8 ####[facility] LABORATORYCLIA [id number] [place] [address] [place] Platelets (Bld) [#/Vol] 201 10*3/uL Normal 150-400 [facility] Comment on above: Order Comment: Speci men Type: BLOOD SPECIMENOrdering Facility: [facility] Address: [address] [place] [address] Performed By: #### 5 7021-8 ####CONNER LABORATORYCLIA [id number] [place] [id number] [place] RBC (Bld) [#/Vol] 4.72 10*6/uL Normal 3.90-5.20 [facility] Comment on above: Order Comment: Speci men Type: BLOOD SPECIMENOrdering Facility: [facility] Address: [facility] [place] [address] Performed By: #### 5 7021-8 ####CONNER LABORATORYCLIA [id number] [place] [id number] [place] WBC (Bld) [#/Vol] 11.01 10*3/uL High 3.70-11.00 [facility] Comment on above: Order Comment: Speci men Type: BLOOD SPECIMENOrdering Facility: [facility] Address: [facility] [place] [address] Performed By: #### 5 7021-8 ####CONNER LABORATORYCLIA [id number] [place] [id number] [facility] CT BRAIN WO IVCONon 12-04-19 CT BRAIN WO IVCON * * *Final Report* * * DATE OF EXAM: Dec 03 2024 8:29AM [facility] 0504 - CT BRAIN WO IVCON / PROCEDURE REASON: Mental status change, unknown cause * * * * Physician Interpretation * * * * EXAMINATION: CT BRAIN WO IVCON CLINICAL HISTORY: Altered mental status TECHNIQUE: Serial axial images without IV contrast were obtained from the vertex to the foramen magnum. MQ: CTBWO_3 CT Radiation dose: Integrated Dose-Length Product (DLP) for this visit = 872 mGy*cm CT Dose Reduction Employed: Automated exposure control(AEC) and iterative recon COMPARISON: CT head 10/08/2023, MRI brain 06/14/2010 RESULT: Post-operative change: None. Acute change: No evidence of acute large territorial infarct Hemorrhage: No evidence of acute intracranial hemorrhage. ECASS hemorrhagic transformation score: Not Applicable Mass Lesion / Mass Effect: There is no evidence of an intracranial mass or extraaxial fluid collection. No significant mass effect. Chronic change: Focus of hypoattenuation within the right temporal lobe likely reflects a remote infarct although is new from 10/08/2023 (series 301, image 18). Extensive confluent foci of low attenuation are present within the supratentorial white matter, a nonspecific finding that most commonly represents extensive small vessel disease. Redemonstration of a large area of encephalomalacia within the left parietal lobe. Small focus of encephalomalacia within the right postcentral gyrus/parietal lobe. Parenchyma: There is moderate generalized volume loss. Ventricles: Significant supratentorial ventriculomegaly, similar or minimally increased from 10/08/2023. Particularly has significantly increased from 01/17/2020 (for example, transverse diameter of the frontal horns now measures 4.6 cm (previously 4.1 cm on 01/17/2020). Normal caliber of the fourth ventricle. Paranasal sinuses and skull base: Mild mucosal thickening within the right maxillary sinus, ethmoid air cells, and sphenoid sinuses. The mastoid air cells are clear. Bilateral ocular lens placement are present. No additional findings Localizer images: No additional findings. IMPRESSION: No evidence of acute large territorial infarct or acute intracranial hemorrhage. Extensive chronic microvascular ischemic changes and multifocal areas of encephalomalacia, as discussed. A small focus of encephalomalacia within the right temporal lobe is new from 10/08/2023. Significant supratentorial ventriculomegaly, similar or minimally increased since 10/08/2023 and definitively increased since 01/17/2020, which could reflect progressive central white matter volume loss or normal pressure/communicati ng hydrocephalus. Manager Business Continuity: [facility] HOSPITALKojo Transcribe Date/Time: Dec 03 2024 8:45A Dictated by : LINDSEY GARCES MD This examination was interpreted and the report reviewed and electronically signed by: LINDSEY GARCES MD on Dec 03 2024 8:59AM EST [id number] CN Normal [facility] Comprehensive metabolic 2000 panelon 12-03-2024 Albumin [Mass/Vol] 4.5 g/dL Normal 3.9-4.9 [facility] Comment on above: Order Comment: Speci men Type: BLOOD SPECIMENOrdering Facility: [facility] Address: [address] [place] [address] Performed By: #### 2 4323-8, 3016-3, LIPNF ####CONNER LABORATORYCLIA [id number] [place] [address] [place] ALP [Catalytic activity/Vol] 106 U/L Normal 34-123 [facility] Comment on above: Order Comment: Speci men Type: BLOOD SPECIMENOrdering Facility: [facility] Address: [address] [place] [address] Performed By: #### 2 4323-8, 3016-3, LIPNF ####CON[facility] LABORATORYCLIA [id number] [place] [address] [place] ALT [Catalytic activity/Vol] 7 U/L Normal 7-38 [facility] Comment on above: Order Comment: Speci men Type: BLOOD SPECIMENOrdering Facility: [facility] Address: [address] [place] [address] Performed By: #### 2 4323-8, 3016-3, LIPNF ####CON[facility] LABORATORYCLIA [id number] [place] [address] [place] Anion gap [Moles/Vol] 11 mmol/L Normal 8-15 [facility] Comment on above: Order Comment: Speci men Type: BLOOD SPECIMENOrdering Facility: [facility] Address: [address] [place] [address] Performed By: #### 2 4323-8, 3016-3, LIPNF ####[facility] LABORATORYCLIA [id number] [address] [place] AST [Catalytic activity/Vol] 16 U/L Normal 13-35 [facility] Comment on above: Order Comment: Speci men Type: BLOOD SPECIMENOrdering Facility: [facility] Address: [address] [place] [address] Performed By: #### 2 4323-8, 3016-3, LIPNF ####CON[facility] LABORATORYCLIA [id number] [place] [address] [place] Bilirubin [Mass/Vol] 0.8 mg/dL Normal 0.2-1.3 [facility] Comment on above: Order Comment: Speci men Type: BLOOD SPECIMENOrdering Facility: [facility] Address: [address] [place], [place] [address] [address] Performed By: #### 2 4323-8, 3016-3, LIPNF ####CON[facility] LABORATORYCLIA [id number] [place] [address] [place] Calcium [Mass/Vol] 9.3 mg/dL Normal 8.5-10.2 [facility] Comment on above: Order Comment: Speci men Type: BLOOD SPECIMENOrdering Facility: [facility] Address: [address] [place] [address] Performed By: #### 2 4323-8, 6-3, LIPNF ####CON[facility] LABORATORYCLIA [id number] [place] [address] [place] Chloride [Moles/Vol] 101 mmol/L Normal 98-107 [facility] Comment on above: Order Comment: Speci men Type: BLOOD SPECIMENOrdering Facility: [facility] Address: [address] [place] [address] Performed By: #### 2 4323-8, 3015-3, LIPNF ####CON[facility] LABORATORYCLIA [id number] [place] [address] [place] CO2 [Moles/Vol] 28 mmol/L Normal 22-30 [facility] Comment on above: Order Comment: Speci men Type: BLOOD SPECIMENOrdering Facility: [facility] Address: [address] [place] [address] Performed By: #### 2 4323-8, 3015-3, LIPNF ####CON[facility] LABORATORYCLIA [id number] [place] [address] [place] Creatinine [Mass/Vol] 0.72 mg/dL Normal 0.58-0.96 [facility] Comment on above: Order Comment: Speci men Type: BLOOD SPECIMENOrdering Facility: [facility] Address: [address] [place] [address] Performed By: #### 2 4323-8, 6-3, LIPNF ####CON[facility] LABORATORYCLIA [id number] [place] [address] [place] Creatinine and Glomerular filtration rate.predicted panel (S/P/Bld) 86 mL/min/1.73m??? Normal >=60 [facility] Comment on above: Order Comment: Yoav lujan Type: BLOOD SPECIMENOrdering Facility: [facility] Address: [address] [place] [address] Result Comment: Mateo mated Glomerular Filtration Rate (eGFR) is calculated using the 2020 CKD-EPI creatinine equation. This equation utilizes serum creatinine, sex, and age as parameters. The creatinine assay has traceable calibration to isotope dilution-mass spectrometry. Refer to KDIGO guidelines for clinical interpretation. In patients with unstable renal function, e.g. those with acute kidney injury, the eGFR may not accurately reflect actual GFR. Performed By: #### 2 4323-8, 3016-3, LIPKWAME ####CONNER LABORATORYCLIA [id number] [place] [id number] [place] Glucose [Mass/Vol] 127 mg/dL High 74-99 [facility] Comment on above: Order Comment: Yoav lujan Type: BLOOD SPECIMENOrdering Facility: [facility] Address: [address] [place] [address] Result Comment: The [place] [employer] (ADA) provides guidance for cutoff values for fasting glucose and random glucose. The ADA defines fasting as no caloric intake for at least 8 hours. Fasting plasma glucose results between 100 to 125 mg/dL indicate increased risk for diabetes (prediabetes). Fasting plasma glucose results greater than or equal to 126 mg/dL meet the criteria for diagnosis of diabetes. In the absence of unequivocal hyperglycemia, results should be confirmed by repeat testing. In a patient with classic symptoms of hyperglycemia or hyperglycemic crisis, random plasma glucose results greater than or equal to 200 mg/dL meet the criteria for diagnosis of diabetes. Reference: Standards of Medical Care in Diabetes 2016, [employer] Diabetes Association. Diabetes Care. 2016.39(Suppl 1). Performed By: #### 2 4323-8, 3016-3, LIPKWAME ####[facility] LABORATORYCLIA [id number] [place] [id number] [place] Potassium [Moles/Vol] 4.2 mmol/L Normal 3.7-5.1 [facility] Comment on above: Order Comment: Yoav lujan Type: BLOOD SPECIMENOrdering Facility: [facility] Address: [address] [place] [address] Performed By: #### 2 4323-8, 3016-3, LIPNF ####[facility] LABORATORYCLIA [id number] [address] Protein [Mass/Vol] 7.6 g/dL Normal 6.3-8.0 [facility] Comment on above: Order Comment: Speci men Type: BLOOD SPECIMENOrdering Facility: [facility] Address: [address] [place] [address] Performed By: #### 2 4323-8, 3016-3, LIPNF ####[facility] LABORATORYCLIA [id number] [address] [place] Sodium [Moles/Vol] 140 mmol/L Normal 136-144 [facility] Comment on above: Order Comment: Speci men Type: BLOOD SPECIMENOrdering Facility: [facility] Address: [address] [place] [address] Performed By: #### 2 4323-8, 3016-3, LIPNF ####[facility] LABORATORYCLIA [id number] [address] [place] Urea nitrogen [Mass/Vol] 15 mg/dL Normal 7-21 [facility] Comment on above: Order Comment: Speci men Type: BLOOD SPECIMENOrdering Facility: [facility] Address: [address] [place] [address] Performed By: #### 2 4323-8, 3016-3, LIPNF ####[facility] LABORATORYCLIA [id number] [address] OF CED ED NOTEon 12-03-2024 ED NOTE HNO ID: [id number] Author: JOLLY HURD RN Service: Nursing Author Type: Registered Nurse Type: ED Notes Filed: 12/03/2024 11:42 Note Text: Second heads up given to 3 south charge entry [facility] ED NOTE HNO ID: [id number] Author: JOLLY HURD RN Service: Nursing Author Type: Registered Nurse Type: ED Notes Filed: 12/03/2024 10:56 Note Text: Heads up given to 3 south charge entry [facility] ED NOTE HNO ID: [id number] Author: JOLLY HURD, RN Service: Nursing Author Type: Registered Nurse Type: ED Notes Filed: 12/03/2024 10:52 Note Text: Pt awake, talking and provided with snacks. [facility] ED NOTE HNO ID: [id number] Author: JOLLY HURD RN Service: Nursing Author Type: Registered Nurse Type: ED Notes Filed: 12/03/2024 17:26 Note Text: Pt's requested we remove pt's wedding ring. Ring removed and given to at bedside. [facility] ED PROV NOTEon 12-03-2024 ED PROV NOTE HNO ID: [id number] Author: LUANA MENDOZA DO Service: Emergency Medicine Author Type: Physician Type: ED Provider Notes Filed: 12/03/2024 14:32 Note Text: ED Provider Note Patient Name: Madiha Perales : 1945 SERVICE DATE: 12/03/24 History Patient presents with: Mental Status Changes: Pt BIB for eval of change in MS. Pt is minimally responsive. reports s/s began last evening. Madiha Perales is a 79-year-old female who is presenting to the emergency department with altered mental status. This seems to be worsening over the last day. This morning the patient seems almost to be catatonic. states he was having difficulty getting her to do anything or get up out of bed. On arrival here patient was unable to be removed from the car. She was not assisting in any way shape or form. She had to be carried out of the car. Otherwise she was awake and maintaining her own airway. She was hemodynamically stable. Blood glucose within normal limits. She was following very simple commands such as hand squeeze though any more advanced commands she would not attempt. PAST MEDICAL HISTORY Diagnosis Date Anemia Anxiety and depression 02/05/2023 Breast calcifications on mammogram 07/24/2013 Cancer (HCC) uterine Fever in adult 06/05/2023 Obesity, Class I, BMI 30-34.9 10/08/2023 MARCY on CPAP MARCY on CPAP 02/05/2023 PMH - PAST MEDICAL HISTORY OF 07/24/2005 Uterine cancer s/p hyst (no XRT/chemo needed) Senile dementia (HCC) 10/08/2023 per dgtr taking meds to slow progression Stroke (HCC) 06/23/2009 PAST SURGICAL HISTORY Procedure Laterality Date BREAST BIOPSY 06/23/1977 left breast,benign BREAST LUMPECTOMY HX Left 02/18/2023 Dr. Choi COLONOSCOPY 06/23/2012 HYSTERECTOMY HX 07/24/2005 total MAMMOTOME BIOPSY RIGHT 08/09/2013 PAST SURGICAL HISTORY OF right knee arthroscopy for torn meniscus, no hardware REMOVE CATARACT, INSERT LENS, INTRACAPSUL 06/23/2012 FAMILY HISTORY Problem Relation Age of Onset Breast Cancer Mother Cancer Mother Thyroid Mother other (htn [Other]) Mother other (hyperlipidemia [Other]) Mother other (hypothyroid [Other]) Mother Cancer Father other (lung cancer [Other]) Father other (liver cancer [Other]) Father other (healthy [Other]) Sister other (healthy [Other]) Brother Hypertension Maternal Grandmother Stroke Maternal Grandfather other (cva [Other]) Maternal Grandfather Cancer Paternal Grandmother other (brain cancer [Other]) Paternal Grandmother Colon Cancer Paternal Grandfather Anesthesia Problems No Family History Social History Tobacco Use Smoking status: Never Smokeless tobacco: Never Vaping Use Vaping status: Never Used Substance and Sexual Activity Alcohol use: No Drug use: No Sexual activity: Not on file ALLERGIES Allergen Reactions Alendronic Acid Unknown Asa [Salicylates] Unknown Cephalexin Unknown Lyrica [Pregabalin] Unknown Mri Contrast [Iodin* Hives Hives x 5 locations, redness of right eye. Nickel Unknown Penicillins Unknown Review of Systems Psychiatric/Behavior al: Positive for confusion. All other systems reviewed and are negative. Physical Exam Vitals BP Pulse Temp Temp src Resp SpO2 Weight Height 12/03/24 0800 12/03/24 0800 12/03/24 0812 12/03/24 0812 12/03/24 0800 12/03/24 0800 12/03/24 0812 -- 161/81 (!) 92 37.1 ?C (98.7 ?F) Rectal 20 (!) 94 % 93.6 kg (206 lb 5.6 oz) Physical Exam Vitals and nursing note reviewed. Constitutional: General: She is not in acute distress. Appearance: She is well-developed. HENT: Head: Normocephalic and atraumatic. Right Ear: External ear normal. Left Ear: External ear normal. Eyes: General: No scleral icterus. Right eye: No discharge. Left eye: No discharge. Conjunctiva/sclera: Conjunctivae normal. Pupils: Pupils are equal, round, and reactive to light. Cardiovascular: Rate and Rhythm: Normal rate and regular rhythm. Heart sounds: No murmur heard. No friction rub. No gallop. Pulmonary: Effort: Pulmonary effort is normal. No respiratory distress. Breath sounds: Normal breath sounds. No wheezing or rales. Chest: Chest wall: No tenderness. Abdominal: General: Bowel sounds are normal. There is no distension. Palpations: Abdomen is soft. There is no mass. Tenderness: There is no abdominal tenderness. There is no guarding or rebound. Musculoskeletal: General: No tenderness or deformity. Normal range of motion. Cervical back: Normal range of motion and neck supple. Lymphadenopathy: Cervical: No cervical adenopathy. Skin: General: Skin is warm and dry. Coloration: Skin is not pale. Findings: No erythema or rash. Neurological: Mental Status: She is lethargic. Comments: Patient following simple commands such as hand squeeze otherwise not participating at all in physical exam. Patient simply staring off into space and not communicati (more content not included)... Normal [facility] EKGon 12-03-2024 Electrocardiogram Ventricular Rate : 92 BPM Atrial Rate : 92 BPM P-R Interval : 148 ms QRS Duration : 76 ms Q-T Interval : 364 ms QTC Calculation(Bazett) : 450 ms Calculated P [place] : 5 degrees Calculated R [place] : -7 degrees Calculated T [place] : 23 degrees NORMAL SINUS RHYTHM CANNOT RULE OUT ANTERIOR INFARCT , AGE UNDETERMINED ABNORMAL ECG Confirmed by LUANA MENDOZA DO ([id number]) on 12/03/2024 2:32:05 PM NAME : MADIHA PERALES PID : [id number] : 1945 Gender : Female Race : ORD : Procedure Date : Dec 03 2024 07:59:58 Edit Date : Dec 03 2024 14:32:08 Diagnosis: NORMAL SINUS RHYTHM CANNOT RULE OUT ANTERIOR INFARCT , AGE UNDETERMINED ABNORMAL ECG Confirmed by LUANA MENDOZA DO ([id number]) on 12/03/2024 2:32:05 PM Test Reason : Location : 1 : ER ED Overread By : LUANA MENDOZA DO Edited By : LUANA MENDOZA DO Referred By : , Acquired by : [id number], Normal [facility] HISTORY PHYSICALon HISTORY PHYSICAL HNO ID: [id number] Author: ANAHI POLANCO MD Service: Hospital Medicine Author Type: Physician Type: H&P Filed: 12/03/2024 16:43 Note Text: DEPARTMENT OF HOSPITAL MEDICINE HISTORY AND PHYSICAL EXAM SERVICE DATE: 12/03/2024 SERVICE TIME: 3:58 PM Primary Care Physician: Marie Devi MD NIGHT AND WEEKEND COVERAGE: [facility]: Days: [phone], please page attending physician. Nights: [phone], please page [facility] Night coverage pager [phone]. 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 Patient is a poor historian and most of the history is obtained by talking to the daughter at the bedside. As per the daughter the patient was in her usual state of health until yesterday and went to her adult daycare. This morning when the tried to wake her up she was not responding, he tried dressing her up and she was like weight. It took the about 30 minutes to move her from the house to the car, on arrival to the ER it took 5-6 people to move her out of the car into the ER. In the ER her temperature was 98.7F, pulse [place] 88/[place] [address], RR of 22/min, 99% on room air. Labs were remarkable for WBC count of 11.01, UA showed trace hemoglobin, trace leukocyte esterase CT brain showed extensive chronic microvascular ischemic changes and multifocal areas of encephalomalacia small focus of encephalomalacia within the right temporal lobe which is new. Significant supratentorial ventriculomegaly similar or minimally increased since 2023. Patient received 1 L of normal saline in the ER and her mental status improved back to her baseline. She is being admitted for further workup of the episode of confusion PAST MEDICAL HISTORY Diagnosis Date Anemia Anxiety and depression 02/05/2023 Breast calcifications on mammogram 07/24/2013 Cancer (HCC) uterine Fever in adult 06/05/2023 Obesity, Class I, BMI 30-34.9 10/08/2023 MARCY on CPAP MARCY on CPAP 02/05/2023 PMH - PAST MEDICAL HISTORY OF 07/24/2005 Uterine cancer s/p hyst (no XRT/chemo needed) Senile dementia (HCC) 10/08/2023 per dgtr taking meds to slow progression Stroke (HCC) 06/23/2009 PAST SURGICAL HISTORY Procedure Laterality Date BREAST BIOPSY 06/23/1977 left breast,benign BREAST LUMPECTOMY HX Left 02/18/2023 Dr. Choi COLONOSCOPY 06/23/2012 HYSTERECTOMY HX 07/24/2005 total MAMMOTOME BIOPSY RIGHT 08/09/2013 PAST SURGICAL HISTORY OF right knee arthroscopy for torn meniscus, no hardware REMOVE CATARACT, INSERT LENS, INTRACAPSUL 06/23/2012 FAMILY HISTORY Problem Relation Age of Onset Breast Cancer Mother Cancer Mother Thyroid Mother other (htn [Other]) Mother other (hyperlipidemia [Other]) Mother other (hypothyroid [Other]) Mother Cancer Father other (lung cancer [Other]) Father other (liver cancer [Other]) Father other (healthy [Other]) Sister other (healthy [Other]) Brother Hypertension Maternal Grandmother Stroke Maternal Grandfather other (cva [Other]) Maternal Grandfather Cancer Paternal Grandmother other (brain cancer [Other]) Paternal Grandmother Colon Cancer Paternal Grandfather Anesthesia Problems No Family History Social History Tobacco Use Smoking status: Never Smokeless tobacco: Never Vaping Use Vaping status: Never Used Substance Use Topics Alcohol use: No Drug use: No PRIOR TO ADMISSION MEDICATIONS: Prior to Admission Medications Prescriptions Last Dose Informant Patient Reported? Taking? DULoxetine (CYMBALTA) 20 mg capsule 12/03/2024 Yes Yes Sig: Take 1 capsule (20 mg) by mouth once daily. Multivitamin capsule Yes No Sig: Take 1 capsule by mouth once daily. anastrozole (ARIMIDEX) 1 mg tablet Yes No Sig: Take 1 mg by mouth once daily. carbidopa-levodopa (SINEMET 25-100) 25-100 mg per tablet 12/03/2024 Yes Yes Sig: Take 1 tablet by mouth three times a day. Take 1 tablet at 10 am, 3 pm, and 8 pm loratadine (CLARITIN) 10 mg tablet 12/03/2024 Yes Yes Sig: Take 1 tablet by mouth every afternoon. memantine (NAMENDA) 10 mg tablet 12/03/2024 Yes Yes Sig: Take 10 mg by mouth once daily. ondansetron (ZOFRAN) 8 mg tablet Yes No Sig: Take 8 mg by mouth every 8 hours as needed for nausea/vomiting. prochlorperazine (COMPAZINE) 10 mg tablet Yes No Sig: Take 10 mg by mouth every 6 hours as needed for nausea/vomiting. Facility-Administere d Medications: None ALLERGIES Allergen Reactions Alendronic Acid Unknown Asa [Salicylates] Unknown Cephalexin Unknown Lyrica [Pregabalin] Unknown Mri Contrast [Iodin* Hives Hives x 5 locations, redness of right eye. Nickel Unknown Penicillins Unknown REVIEW OF SYSTEM: GENERAL: No (more content not included)... Normal [facility] LIPID PANEL, NONFASTINGon Cholesterol [Mass/Vol] 152 mg/dL Normal <200 [facility] Comment on above: Order Comment: Speci men Type: BLOOD SPECIMENOrdering Facility: [facility] Address: [address] [place] [address] Result Comment: <200 mg/dL, Desirable 200-239 mg/dL, Borderline high >239 mg/dL, High Performed By: #### 2 4323-8, 3016-3, LIPNF ####[facility] LABORATORYCLIA [id number] [address] OF [facility] HDL CHOLESTEROL, NF 54 mg/dL Normal >39 [facility] Comment on above: Order Comment: Speci men Type: BLOOD SPECIMENOrdering Facility: [facility] Address: [address] [place] [address] Result Comment: 40-5 9 mg/dL, Acceptable >59 mg/dL, High: Negative risk factor for coronary heart disease <40 mg/dL, Low: Positive risk factor for coronary heart disease Performed By: #### 2 4323-8, 3016-3, LIPNF ####[facility] LABORATORYCLIA [id number] [address] OF CED LDL CHOLESTEROL CALCULATED, NF 84 mg/dL Normal <100 [facility] Comment on above: Order Comment: Speci [facility] Type: BLOOD SPECIMENOrdering Facility: [facility] Address: [address] [place] [address] Result Comment: <100 mg/dL, Optimal 100-129 mg/dL, Near optimal/above optimal 130-159 mg/dL, Borderline high 160-189 mg/dL, High >189 mg/dL, Very high Secondary prevention optimal LDL Cholesterol levels are recommended to be <70 mg/dL LDL cholesterol is calculated using the Lock-NIH equation. Performed By: #### 2 4323-8, 3016-3, LIPNF ####[facility] LABORATORYCLIA [id number] [address] LDL/HDL RATIO, NF 1.56 mg/dL Normal <2.54 [facility] Comment on above: Order Comment: Yoav tai Type: BLOOD SPECIMENOrdering Facility: [facility] Address: [address] [place] [address] Result Comment: Refe myron: 1. National Cholesterol Education Program ATP III Guideline At-A-Glance Quick Desk Reference: National Heart, Lung, and Blood [place]. National Institutes of Health. 2001: NIH Publication No. 01-3305. 2. An International Atherosclerosis Society position paper: global recommendations for the management of dyslipidemia: executive summary, Atherosclerosis. 2014: 232(2):410-413. Performed By: #### 2 4323-8, 3016-3, LIPNF ####[facility] LABORATORYCLIA [id number] [address] OF [facility] NON HDL CHOL, NF 98 mg/dL Normal <130 [facility] Comment on above: Order Comment: Nehemiahjann lujan Type: BLOOD SPECIMENOrdering Facility: [facility] Address: [address] [place] [address] Result Comment: <130 mg/dL, Optimal 130-159 mg/dL, Near optimal/above optimal 160-189 mg/dL, Borderline high 190-219 mg/dL, High >219 mg/dL, Very high Secondary prevention optimal non HDL Cholesterol levels are recommended to be <100 mg/dL Performed By: #### 2 4323-8, 3016-3, LIPNF ####[facility] LABORATORYCLIA [id number] [address] T CHOL/HDL RATIO NF 2.81 mg/dL Normal <5.10 [facility] Comment on above: Order Comment: Yoav lujan Type: BLOOD SPECIMENOrdering Facility: [facility] Address: [address] [place] [address] Performed By: #### 2 4323-8, 3016-3, LIPNF ####[facility] LABORATORYCLIA [id number] [address] TRIGLYCERIDES, NF 70 mg/dL Normal <150 [facility] Comment on above: Order Comment: Yoav lujan Type: BLOOD SPECIMENOrdering Facility: [facility] Address: [address] [place] [address] Result Comment: <150 mg/dL, Normal 150-199 mg/dL, Borderline high 200-499 mg/dL, High >499 mg/dL, Very high Performed By: #### 2 4323-8, 3016-3, LIPNF ####[facility] LABORATORYCLIA [id number] [address] VLDL CHOLESTEROL, NF 11 mg/dL Normal <30 [facility] Comment on above: Order Comment: Yoav lujan Type: BLOOD SPECIMENOrdering Facility: [facility] Address: [address] [place] [address] Performed By: #### 2 4323-8, 3016-3, LIPNF ####[facility] LABORATORYCLIA [id number] [address] MRI BRAIN WO IVCONon 025 MRI BRAIN WO IVCON * * *Final Report* * * DATE OF EXAM: Dec 03 2024 6:17PM [facility] 0294 - MRI BRAIN WO IVCON / PROCEDURE REASON: Delirium * * * * Physician Interpretation * * * * EXAMINATION: MRI BRAIN WO IVCON HISTORY: Delirium - - - Altered state of awareness - Delirium - [id number] - - - - TECHNIQUE: MRI brain routine protocol without contrast. M: [id number] COMPARISON: CT brain 12/03/2024 RESULT: Acute Change: No evidence of an acute intracranial process. Hemorrhage: No evidence of prior parenchymal hemorrhage on the susceptibility weighted sequences. Mass Lesion/ Mass Effect: No evidence of an intracranial mass or extra-axial fluid collection. No significant mass effect. Chronic Change: Extensive, confluent increased T2 and FLAIR signal is present in the supratentorial white matter which is nonspecific but likely represents extensive chronic microvascular ischemia. 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 Additional area evidence of malacia and gliosis involving the right post central gyrus/parietal lobe. Parenchyma: There is moderate generalized parenchymal volume loss. Ventricles: Ventriculomegaly corresponds to the degree of parenchymal volume loss. Skull Base: Hypothalamic and pituitary region are grossly normal. Craniocervical junction is normal. No significant marrow replacement process. Vasculature: Major intracranial arteries and dural venous sinuses demonstrate typical flow voids, suggesting patency by spin echo criteria. Other: Mild diffuse paranasal sinus mucosal thickening. Bilateral intraocular lens replacement. The orbits and extracranial soft tissues are unremarkable. IMPRESSION: No evidence of acute infarct. Extensive chronic changes as detailed. Manager Business Continuity: JARVIS Transcribe Date/Time: Dec 03 2024 8:33P Dictated by : SAGE ÁLVAREZ MD This examination was interpreted and the report reviewed and electronically signed by: SAGE ÁLVAREZ MD on Dec 03 2024 8:43PM EST [id number] CN Normal [facility] SEPSIS LACTATE W/ REFLEX (IN ITIAL)on 12-03-2024 Lactate [Moles/Vol] 1.4 mmol/L Normal 0.5-2.0 [facility] Comment on above: Order Comment: Speci men Type: BLOOD SPECIMENOrdering Facility: [facility] Address: [address] [place] [address] Performed By: #### S LACTR ####[facility] LABORATORYCLIA [id number] [place] [address] [place] THERAPY NTon 12-03-2024 THERAPY NT HNO ID: [id number] Author: ORQUIDEA VELÁZQUEZ OT/West Service: Occupational Therapy Author Type: Occupational Therapist Type: Therapy (PT/OT/Speech/Resp) Filed: 12/03/2024 14:34 Note Text: Summary: OT Missed Visit OCCUPATIONAL THERAPY MISSED VISIT SERVICE DATE: 12/03/2024 SERVICE TIME: 1430 ROOM: [place] [address] Patient not seen due to Incomplete Orders. Awaiting ED note and/or HANDP in order to complete chart review of patient and determine clinical appropriateness for participation in therapy evaluation at this time. Will re-attempt as schedule allows pending pt appropriateness. SIGNATURE: Orquidea Velázquez OT/L PATIENT NAME: Madiha Perales DATE: December 03, 2024 TIME: 2:31 PM Normal [facility] TSH SerPl-aCncon 12-03-2024 TSH Qn 1.260 m[IU]/L Normal 0.270-4.200 [facility] Comment on above: Order Comment: Speci men Type: BLOOD SPECIMENOrdering Facility: [facility] Address: [address] [place] [address] Performed By: #### 2 4323-8, 3016-3, LIPNF ####[facility] LABORATORYCLIA [id number] [place] [id number] [place] Urinalysis complete panel (U )on 12-03-2024 Bacteria LM.HPF (Urine sed) [#/Area] Few Abnormal None Seen [facility] Comment on above: Order Comment: Nehemiahi men Type: URINE SPECIMENOrdering Facility: [facility] Address: [address] [place], [place] [address] Performed By: #### 2 4356-8 ####[facility] LABORATORYCLIA [id number] [place] [address] [place] Bilirubin Ql (U) Negative Normal Negative [facility] Comment on above: Order Comment: Speci men Type: URINE SPECIMENOrdering Facility: [facility] Address: [address] [place] [address] Performed By: #### 2 4356-8 ####[facility] LABORATORYCLIA [id number] [place] [address] [place] Clarity (Unsp spec) Clear Normal Clear [facility] Comment on above: Order Comment: Speci men Type: URINE SPECIMENOrdering Facility: [facility] Address: [address] [place] [address] Performed By: #### 2 4356-8 ####[facility] LABORATORYCLIA [id number] [place] [address] [place] Color (U) Yellow Normal Yellow [facility] Comment on above: Order Comment: Speci men Type: URINE SPECIMENOrdering Facility: [facility] Address: [address] [place] [address] Performed By: #### 2 4356-8 ####[facility] LABORATORYCLIA [id number] [place] [address] [place] Epithelial cells LM.HPF (Urine sed) [#/Area] Few Normal [facility] Comment on above: Order Comment: Speci men Type: URINE SPECIMENOrdering Facility: [facility] Address: [address] [place] [address] Performed By: #### 2 4356-8 ####[facility] LABORATORYCLIA [id number] [place] [id number] [place] Glucose Test strip (U) [Mass/Vol] Negative Normal Negative [facility] Comment on above: Order Comment: Speci men Type: URINE SPECIMENOrdering Facility: [facility] Address: [address] [place] [address] Performed By: #### 2 4356-8 ####[facility] LABORATORYCLIA [id number] [place] [id number] [place] Hemoglobin Ql (U) Trace Abnormal Negative [facility] Comment on above: Order Comment: Speci men Type: URINE SPECIMENOrdering Facility: [facility] Address: [address] [place] [address] Performed By: #### 2 4356-8 ####[facility] LABORATORYCLIA [id number] [place] [address] [place] Ketones Ql (U) Negative Normal Negative [facility] Comment on above: Order Comment: Speci men Type: URINE SPECIMENOrdering Facility: [facility] Address: [address] [place] [address] Performed By: #### 2 4356-8 ####CON[facility] LABORATORYCLIA [id number] [place] [address] [place] Leukocyte esterase Test strip Ql (U) Trace Abnormal Negative [facility] Comment on above: Order Comment: Speci men Type: URINE SPECIMENOrdering Facility: [facility] Address: [address] [place] [address] Performed By: #### 2 4356-8 ####CONNER LABORATORYCLIA [id number] [place] [address] [place] Nitrite Ql (U) Negative Normal Negative [facility] Comment on above: Order Comment: Speci men Type: URINE SPECIMENOrdering Facility: [facility] Address: [address] [place] [address] Performed By: #### 2 4356-8 ####CONNER LABORATORYCLIA [id number] [place] [address] [place] pH (U) 7.0 [pH] Normal 5.0-8.0 [facility] Comment on above: Order Comment: Speci men Type: URINE SPECIMENOrdering Facility: [facility] Address: [address] [place] [address] Performed By: #### 2 4356-8 ####CONNER LABORATORYCLIA [id number] [place] [address] [place] Protein (U) [Mass/Vol] Negative Normal Negative [facility] Comment on above: Order Comment: Speci men Type: URINE SPECIMENOrdering Facility: [facility] Address: [address] [place] [address] Performed By: #### 2 4356-8 ####CONNER LABORATORYCLIA [id number] [place] [address] [place] RBC LM.HPF (Urine sed) [#/Area] 0-3 /HPF Normal 0-3 /HPF [facility] Comment on above: Order Comment: Speci men Type: URINE SPECIMENOrdering Facility: [facility] Address: [address] [place] [address] Performed By: #### 2 4356-8 ####[facility] LABORATORYCLIA [id number] [place] [address] [place] Specific gravity (U) [Rel density] 1.015 Normal 1.005-1.030 [facility] Comment on above: Order Comment: Speci men Type: URINE SPECIMENOrdering Facility: [facility] Address: [address] [place] [address] Performed By: #### 2 4356-8 ####BR[facility]WE[facility] LABORATORYCLIA [id number] [place] Urobilinogen Ql (U) 0.2 EU/dL Normal 0.2-1.0 EU/dL [facility] Comment on above: Order Comment: Speci men Type: URINE SPECIMENOrdering Facility: [facility] Address: [address] [place] [address] Performed By: #### 2 4356-8 ####BR[facility]WE[facility] LABORATORYCLIA [id number] [address] WBC LM.HPF (Urine sed) [#/Area] 0-5 /HPF Normal 0-5 /HPF [facility] Comment on above: Order Comment: Speci men Type: URINE SPECIMENOrdering Facility: [facility] Address: [address] [place] [address] Performed By: #### 2 4356-8 ####BROCKWELL LABORATORYCLIA [id number] [place] [address] [place] XR CHEST 1V FRONTAL PORTon 0 12-03-2024 XR CHEST 1V FRONTAL PORT * * *Final Report* * * DATE OF EXAM: Dec 03 2024 8:20AM MDX [id number] - XR CHEST 1V FRONTAL PORT / PROCEDURE REASON: Fatigue and malaise * * * * Physician Interpretation * * * * EXAMINATION: CHEST RADIOGRAPH (PORTABLE SINGLE VIEW AP) Exam Date/Time: 12/03/2024 8:20 AM CLINICAL HISTORY: Fatigue and malaise, Fatigue and malaise MQ: XCPR_5 Comparison: 10/08/2023 RESULT: Lines, tubes, and devices: None. Lungs and pleura: Low lung volumes with bronchovascular crowding. No focal consolidation, pleural effusion, or pneumothorax. Cardiomediastinal silhouette: Stable cardiomediastinal silhouette. Other: . IMPRESSION: No acute process. Manager Business Continuity: JARVIS Transcribe Date/Time: Dec 03 2024 8:33A Dictated by : BOOKER PEDRAZA MD This examination was interpreted and the report reviewed and electronically signed by: BOOKER PEDRAZA MD on Dec 03 2024 8:34AM EST [id number] [facility] 25-hydroxyvitamin D3 [Mass/V ol]on 09-18-2024 25-hydroxyvitamin D [Mass/Vol] 51 ng/mL 30 - 100 ng/mL [facility] Comment on above: Vitamin D Status 25- OH Vitamin D: Deficiency: <20 ng/mL Insufficiency: 20 - 29 ng/mL Optimal: > or = 30 ng/mL For 25-OH Vitamin D testing on patients on D2-supplementation and patients for whom quantitation of D2 and D3 fractions is required, the QuestAssureD(TM) 25-OH VIT D, (D2,D3), LC/MS/MS is recommended: order code 52654 (patients >2yrs). See Note 1 Note 1 For additional information, please refer to http://education.Apprats.Portable Zoo/faq/AJC917 (This link is being provided for informational/ educational purposes only.) CBC (INCLUDES DIFF/PLT)on Basophils (Bld) [#/Vol] 0.027 10*3/uL Normal 0-200 [facility] Comment on above: Performed By: #### 3 2060, 13379, 9978, 97027, 51801 #### [facility] [address], [address] [place] [address] Sports Director: Jame Mena MD Basophils/100 WBC (Bld) 0.4 % Normal [facility] Comment on above: Performed By: #### 3 6127, 78231, 6399, 25273, 59812 #### [facility] of [place] [address] Sports Director: Jame Mena MD Eosinophils (Bld) [#/Vol] 0.168 10*3/uL Normal 15-500 [facility] Comment on above: Performed By: #### 3 6127, 88771, 6399, 16225, 67209 #### [facility] [place] [address] Sports Director: Jame Mena MD Eosinophils/100 WBC (Bld) 2.5 % Normal [facility] Comment on above: Performed By: #### 3 6127, 06090, 6399, 27431, 01652 #### [facility] [place] [address] Sports Director: Jame Mena MD Erythrocyte distribution width (RBC) [Ratio] 12.6 % Normal 11.0-15.0 [facility] Comment on above: Performed By: #### 3 6127, 99113, 6399, 52003, 91186 #### [facility] [place] [address] Sports Director: Jame Mena MD Hematocrit (Bld) [Volume fraction] 43.6 % Normal 35.0-45.0 [facility] Comment on above: Performed By: #### 3 6127, 54348, 6399, 36014, 86739 #### [facility] [place] [address] Sports Director: Jame Mena MD Hemoglobin (Bld) [Mass/Vol] 14.6 g/dL Normal 11.7-15.5 [facility] Comment on above: Performed By: #### 3 6127, 27044, 6399, 79120, 72891 #### [facility] [place] [address] Sports Director: Jame Mena MD Lymphocytes (Bld) [#/Vol] 1.206 10*3/uL Normal 850-3900 [facility] Comment on above: Performed By: #### 3 6127, 32113, 6399, 13558, 40078 #### [facility] of [address], [address] [place] [address] Sports Director: Jame Mena MD Lymphocytes/100 WBC (Bld) 18.0 % Normal [facility] Comment on above: Performed By: #### 3 61, 52302, 6399, 55039, 13288 #### [facility] [place] [address] Sports Director: Jame Mena MD MCH (RBC) [Entitic mass] 31.6 pg Normal 27.0-33.0 [facility] Comment on above: Performed By: #### 3 61, 39473, 63, , 37118 #### [facility] [place] [address] Sports Director: Jame Mena MD MCHC (RBC) [Mass/Vol] 33.5 g/dL Normal 32.0-36.[address] [facility] Comment on above: Result Comment: For adults, a slight decrease in the calculated MCHC value (in the range of 30 to 32 g/dL) is most likely not clinically significant; however, it should be interpreted with caution in correlation with other red cell parameters and the patient's clinical condition. Performed By: #### 3 61, 55001, 63, 22645, 40812 #### [facility] of [address], [address] [place] [address] Sports Director: Jame Mena MD MCV (RBC) [Entitic vol] 94.4 fL Normal 80.0-100.0 [facility] Comment on above: Performed By: #### 3 61, 67463, 6399, 33923, 33657 #### [facility] [place] [address] Sports Director: Jame Mena MD Monocytes (Bld) [#/Vol] 0.469 10*3/uL Normal 200-950 [facility] Comment on above: Performed By: #### 3 6127, 12452, 6399, 88920, 24628 #### [facility] [place] [address] Sports Director: Jame Mena MD Monocytes/100 WBC (Bld) 7.0 % Normal [facility] Comment on above: Performed By: #### 3 6127, 34714, 6399, 97199, 23756 #### [facility] [place] [address] Sports Director: Jame Mena MD Neutrophils (Bld) [#/Vol] 4.831 10*3/uL Normal 5169-9344 [facility] Comment on above: Performed By: #### 3 6127, 58043, 6399, 64189, 31193 #### [facility] [place] [address] Sports Director: Jame Mena MD Neutrophils/100 WBC (Bld) 72.1 % Normal [facility] Comment on above: Performed By: #### 3 6127, 26292, 6399, 14907, 93069 #### [facility] [place] [address] Sports Director: Jame Mena MD Platelet mean volume (Bld) [Entitic vol] 11.2 fL Normal 7.5-12.5 [facility] Comment on above: Performed By: #### 3 6127, 94021, 6399, 33232, 03849 #### [facility] [place] [address] Sports Director: Jame Mena MD Platelets (Bld) [#/Vol] 206 10*3/uL Normal 140-400 [facility] Comment on above: Performed By: #### 3 6127, 14238, 6399, 38757, 49862 #### [facility] of [address] [place] [address] Sports Director: Jame Mena MD RBC (Bld) [#/Vol] 4.62 10*6/uL Normal 3.80-5.10 [facility] Comment on above: Performed By: #### 3 6127, 68565, 6399, 77129, 70128 #### [facility] [address], [address] [place] [address] Sports Director: Jame Mena MD WBC (Bld) [#/Vol] 6.7 10*3/uL Normal 3.8-10.8 [facility] Comment on above: Performed By: #### 3 6127, 21127, 6399, 28486, 53045 #### [facility] [address], [address] [place] [address] Sports Director: Jame Mena MD CBC W Auto Differential pane l (Bld)on 09-18-2024 Basophils (Bld) [#/Vol] 27 10*3/uL U [facility] Basophils/100 WBC (Bld) 0.4 % [facility] Eosinophils (Bld) [#/Vol] 168 10*3/uL [facility] Eosinophils/100 WBC (Bld) 2.5 % [facility] Erythrocyte distribution width (RBC) [Ratio] 12.6 % 11.0 - 15.0 % [facility] Hematocrit (Bld) [Volume fraction] 43.6 % 35.0 - 45.0 % [facility] Hemoglobin (Bld) [Mass/Vol] 14.6 g/dL 11.7 - 15.5 g/dL [facility] Lymphocytes (Bld) [#/Vol] 1206 10*3/uL [facility] Lymphocytes/100 WBC (Bld) 18 % [facility] MCH (RBC) [Entitic mass] 31.6 pg 27.0 - 33.0 pg [facility] MCHC (RBC) [Mass/Vol] 33.5 g/dL 32.0 - 36.0 g/dL [facility] Comment on above: For adults, a slight decrease in the calculated MCHC value (in the range of 30 to 32 g/dL) is most likely not clinically significant; however, it should be interpreted with caution in correlation with other red cell parameters and the patient's clinical condition. MCV (RBC) [Entitic vol] 94.4 fL 80.0 - 100.0 fL [facility] Monocytes (Bld) [#/Vol] 469 10*3/uL [facility] Monocytes/100 WBC (Bld) 7 % U [facility] Neutrophils (Bld) [#/Vol] 4831 10*3/uL [facility] Neutrophils/100 WBC (Bld) 72.1 % [facility] Platelet mean volume (Bld) [Entitic vol] 11.2 fL 7.5 - 12.5 fL [facility] Platelets (Bld) [#/Vol] 206 10*3/uL [facility] RBC (Bld) [#/Vol] 4.62 10*6/uL [facility] WBC (Bld) [#/Vol] 6.7 10*3/uL [facility] COMPREHENSIVE METABOLIC PANE L W/ANION GAPon 09-18-2024 Albumin [Mass/Vol] 4.4 g/dL Normal 3.6-5.1 [facility] Comment on above: Order Comment: FASTI NG:NO FASTING: NO Performed By: #### 3 5820, 64991, 6399, 08452, 15883 #### [facility] [address], [address] [place] [address] Sports Director: Jame Mena MD ALP [Catalytic activity/Vol] 95 U/L Normal 37-153 [facility] Comment on above: Order Comment: FASTI NG:NO FASTING: NO Performed By: #### 3 6127, 05414, 6399, 46820, 07661 #### [facility] [address], [address] [place], [place] [address] Sports Director: Jame Mena MD ALT [Catalytic activity/Vol] 17 U/L Normal 6-29 [facility] Comment on above: Order Comment: FASTI NG:NO FASTING: NO Performed By: #### 3 6227, 73983, 6399, 89977, 76421 #### [facility] [place] [address] Sports Director: Jame Mena MD AST [Catalytic activity/Vol] 15 U/L Normal 10-35 [facility] Comment on above: Order Comment: FASTI NG:NO FASTING: NO Performed By: #### 3 6127, 82374, 6399, 18241, 05140 #### [facility] [place] [address] Sports Director: Jame Mena MD Bilirubin [Mass/Vol] 0.6 mg/dL Normal 0.2-1.2 [email or web address] Comment on above: Order Comment: FASTI NG:NO FASTING: NO Performed By: #### 3 6127, 69759, 6399, 77219, 49417 #### [facility] [place] [address] Sports Director: Jame Mena MD Calcium [Mass/Vol] 9.7 mg/dL Normal 8.6-10.4 [facility] Comment on above: Order Comment: FASTI NG:NO FASTING: NO Performed By: #### 3 6127, 33023, 6399, 48362, 64872 #### [facility] [place] [address] Sports Director: Jame Mena MD Chloride [Moles/Vol] 102 mmol/L Normal 98-110 [facility] [[email or web address] t [facility] Comment on above: Order Comment: FASTI NG:NO FASTING: NO Performed By: #### 3 6127, 65122, 6399, 41876, 53665 #### [facility] [place] [address] Sports Director: Jame Mena MD CO2 [Moles/Vol] 32 mmol/L Normal 20-32 [facility] Comment on above: Order Comment: FASTI NG:NO FASTING: NO Performed By: #### 3 6127, 85052, 6399, 35618, 40616 #### [facility] [place] [address] Sports Director: Jame Mena MD Creatinine [Mass/Vol] 0.59 mg/dL Low 0.60-1.[address] [facility] Comment on above: Order Comment: FASTI NG:NO FASTING: NO Performed By: #### 3 6127, 78211, 6399, 37008, 48727 #### [facility] [place] [address] Sports Director: Jame Mena MD ELECTROLYTE BALANCE 8 mmol/L (calc) Normal 7-17 [facility] Comment on above: Order Comment: FASTI NG:NO FASTING: NO Performed By: #### 3 6127, 39174, 6399, 94061, 89244 #### [facility] [place] [address] Sports Director: Jame Mena MD GFR/1.73 sq M.predicted among non-blacks MDRD (S/P/Bld) [Vol rate/Area] 92 mL/min/{1.73_m2} Normal > OR = 60 [facility] Comment on above: Order Comment: FASTI NG:NO FASTING: NO Performed By: #### 3 6127, 29612, 6399, 73284, 90544 #### [facility] [place] [address] Sports Director: Jame Mena MD Glucose [Mass/Vol] 86 mg/dL Normal 65-139 [facility] Comment on above: Order Comment: FASTI NG:NO FASTING: NO Result Comment: Non-fasting reference interval Performed By: #### 3 6127, 10135, 6399, 38374, 41277 #### [facility] [place] [address] Sports Director: Jame Mena MD Potassium [Moles/Vol] 4.7 mmol/L Normal 3.5-5.3 [facility] Comment on above: Order Comment: FASTI NG:NO FASTING: NO Performed By: #### 3 6127, 06465, 6399, 77924, 52898 #### [facility] [address], [address] [place] [address] Sports Director: Jame Mena MD Protein [Mass/Vol] 6.9 g/dL Normal 6.1-8.1 [facility] Comment on above: Order Comment: FASTI NG:NO FASTING: NO Performed By: #### 3 6127, 25678, 6399, 95120, 67660 #### [facility] [address], [address] [place] [address] Sports Director: Jame Mena MD Sodium [Moles/Vol] 142 mmol/L Normal 135-146 [facility] Comment on above: Order Comment: FASTI NG:NO FASTING: NO Performed By: #### 3 6127, 87333, 6399, 65556, 82634 #### [facility] [address], [address] [place] [address] Sports Director: Jame Mena MD Urea nitrogen [Mass/Vol] 15 mg/dL Normal 7-25 [facility] Comment on above: Order Comment: FASTI NG:NO FASTING: NO Performed By: #### 3 6127, 89427, 6399, 62635, 66233 #### [facility] [place] [address] Sports Director: Jame Mena MD Comprehensive metabolic 2000 panelon 09-18-2024 Albumin [Mass/Vol] 4.4 g/dL 3.6 - 5.1 g/dL [facility] ALP [Catalytic activity/Vol] 95 U/L 37 - 153 U/L [facility] ALT [Catalytic activity/Vol] 17 U/L 6 - 29 U/L [facility] Anion gap [Moles/Vol] 8 mmol/L [facility] AST [Catalytic activity/Vol] 15 U/L 10 - 35 U/L [facility] Bilirubin [Mass/Vol] 0.6 mg/dL 0.2 - 1 .2 mg/dL [facility] Calcium [Mass/Vol] 9.7 mg/dL 8.6 - 10. 4 mg/dL [facility] Chloride [Moles/Vol] 102 mmol/L 98 - 11 0 mmol/L [facility] CO2 [Moles/Vol] 32 mmol/L 20 - 32 mmol/L [facility] Creatinine [Mass/Vol] 0.59 mg/dL Low 0.60 - 1.00 mg/dL [facility] GFR/1.73 sq M.predicted among non-blacks MDRD (S/P/Bld) [Vol rate/Area] 92 mL/min/{1.73_m2} > OR = 60 mL/min/1.73m 2 [facility] Glucose [Mass/Vol] 86 mg/dL 65 - 139 mg/dL [facility] Comment on above: Non-fasting reference interval Potassium [Moles/Vol] 4.7 mmol/L 3.5 - 5.3 mmol/L [facility] Protein [Mass/Vol] 6.9 g/dL 6.1 - 8.1 g/dL [facility] Sodium [Moles/Vol] 142 mmol/L 135 - 146 mmol/L [facility] Urea nitrogen [Mass/Vol] 15 mg/dL 7 - 25 mg/dL [facility] HEMOGLOBIN A1c WITH eAGon eAG (mmol/L) 6.5 mmol/L Normal [facility] Comment on above: Performed By: #### 3 2520, 19453, 6399, 48694, 26345 #### [facility] [address], [address] [place] [address] Sports Director: Jame Mena MD HEMOGLOBIN A1c 5.7 % of total Hgb High <5.7 [facility] Comment on above: Result Comment: For someone without known diabetes, a hemoglobin A1c value between 5.7% and 6.4% is consistent with prediabetes and should be confirmed with a follow-up test. For someone with known diabetes, a value <7% indicates that their diabetes is well controlled. A1c targets should be individualized based on duration of diabetes, age, comorbid conditions, and other considerations. This assay result is consistent with an increased risk of diabetes. Currently, no consensus exists regarding use of hemoglobin A1c for diagnosis of diabetes for children. Performed By: #### 3 7465, 33394, 6399, 73547, 41282 #### [facility] [address] [place] [address], [address] Sports Director: Jame Mena MD Magnesium [Mass/Vol] 117 mg/dL Normal [facility]ues [facility] Comment on above: Performed By: #### 3 6127, 15276, 6399, 27105, 15179 #### [facility] [address], [address] [place] [address] Sports Director: Jame Mena MD HbA1c (Bld) [Mass fraction]o n 09-18-2024 Average glucose Estimated from glycated hemoglobin (Bld) [Mass/Vol] 117 mg/dL [facility] Average glucose Estimated from glycated hemoglobin (Bld) [Moles/Vol] 6.5 mmol/L [facility] Hemoglobin A1Con 09-18-2024 HbA1c (Bld) [Mass fraction] 5.7 % High [facility] Comment on above: For someone without known diabetes, a hemoglobin A1c value between 5.7% and 6.4% is consistent with prediabetes and should be confirmed with a follow-up test. For someone with known diabetes, a value <7% indicates that their diabetes is well controlled. A1c targets should be individualized based on duration of diabetes, age, comorbid conditions, and other considerations. This assay result is consistent with an increased risk of diabetes. Currently, no consensus exists regarding use of hemoglobin A1c for diagnosis of diabetes for children. No Panel Informationon 09-18 Interpretation and review of laboratory results Abnormal [facility] FASTING:NO FASTING: NO [facility] TSH W/REFLEX TO FT4on 2024 TSH W/REFLEX TO FT4 2.56 mIU/L Normal 0.40-4.50 [facility] Comment on above: Performed By: #### 3 6127, 15079, 6399, 29669, 86650 #### [facility] [address], [address] Sports Director: Jame Mena MD Tsh With Reflex To Free T4 I f Abnormalon 09-18-2024 TSH Qn 2.56 m[IU]/L [facility] VITAMIN B12on 09-18-2024 Cobalamin (Vitamin B12) [Mass/Vol] 504 pg/mL Normal 200-1100 [facility] Comment on above: Performed By: #### 3 6127, 78727, 6399, 50920, 57292 #### [facility] [address], [address] [place], [place] [address] Sports Director: Jame Mena MD VITAMIN D,25-OH,TOTAL,IAon 0 09-18-2024 VITAMIN D,25-OH,TOTAL,IA 51 ng/mL Normal 30-100 [facility] Comment on above: Result Comment: [place] min D Status 25-OH Vitamin D: Deficiency: <20 ng/mL Insufficiency: 20 - 29 ng/mL Optimal: > or = 30 ng/mL For 25-OH Vitamin D testing on patients on D2-supplementation and patients for whom quantitation of D2 and D3 fractions is required, the [facility](TM) 25-OH VIT D, (D2,D3), LC/MS/MS is recommended: order code 00861 (patients >2yrs). See Note 1 Note 1 For additional information, please refer to http://education.Apprats.Portable Zoo/faq/ISA748 (This link is being provided for informational/ educational purposes only.) Performed By: #### 3 6127, 55398, 6399, 57340, 38807 #### [facility] [address], [address] [place], [place] [address] Sports Director: Jame Mena MD Vitamin B12on 09-18-2024 Cobalamin (Vitamin B12) [Mass/Vol] 504 pg/mL 200 - 1100 pg/mL [facility] 36on 08-10-2024 36 LVM with pt that pharmacy is working on Arimidex refill. Encouraged to call with any further concerns. Normal [facility] Office Visiton 08-10-2024 Follow-up visit [id number] Madiha Perales 1945 F Date Provider Department Center 08/10/2024 [id number] ESCOBEDO ONC None Family History Problem Relation Age of Onset Breast cancer Mother Lung cancer Father Colon cancer Paternal Grandfather Family Status - Relation Status Age at Mother Father Paternal Grandfather Level of Service:89804 [place] OFFICE/OUTPATIENT ESTABLISHED LOW MDM 20 MIN Reason for Visit and Comments: Breast Cancer [302] Normal [facility] Progress Noteon 08-10-2024 Progress Note Hematology/Oncology Office Visit Oncology History: 1) stage 1A left breast cancer, invasive ductal carcinoma grade 3. ER+ WV+ HER2+. cT1b N0 M0; pT1c N0 M0, diagnosed 01/28/23. - Patient is a 78 yo F who presented with an abnormal screening mammogram of the upper outer quadrant of the left breast on 11/27/22. Diagnostic imaging and ultrasound were performed on 01/21/2023: a 0.9 x 0.9 x 1 cm irregular mass in the left breast. Biopsy was performed at [facility] on 01/28/2023 confirming grade 3 invasive ductal carcinoma ER positive 100%, WV positive 70% and HER2 positive at 3+. The patient underwent lumpectomy and sentinel node removal on 02/18/[address] Choi at [facility]: pathology revealed grade 3 invasive ductal carcinoma measuring 1.9 cm. There was focal DCIS and extensive lymphovascular invasion. Margins were negative for invasive and in situ component at greater than 2 mm. 6 axillary nodes were removed: 5 sentinel and 1 nonsentinel. All were negative.Ban harrison staged T1CN0. - she was referred to [facility] for medical and radiation oncology. Her case was reviewed at our tumor board and adjuvant chemotherapy, radiation, and AI therapy were recommended. She started weekly taxol and herceptin on 04/01/23. She required a 25% reduction in Taxol for cycle 3 due to neutropenia. She completed 8 of the 12 planned cycles of weekly Taxol, but the Taxol was stopped early due to poor tolerance. Herceptin every 3 weeks continued. - radiation started 07/14/23 and she completed it 08/12/23 - Arimidex started 09/02/23. She had several falls and required hospitalizations. Herceptin discontinued (last dose was 09/23/23). HPI: Madiha Perales is a 79 y.o. female who comes in today for routine follow up. She had a bilateral screening mammogram at [facility] on 03/25/24 which was negative for malignancy. She is tolerating Arimidex well. No breast concerns today. She is accompanied by her . She arrived to clinic in a wheelchair. No chest pain or shortness of breath. Appetite is good. No fevers or chills. No swelling. No headaches. No bone pain. She continues to follow with geriatrics/neurology for management of the Parkinson's disease. Past Medical History: Diagnosis Date Allergic rhinitis Anxiety Back pain Lower back pain Breast calcifications on mammogram Dementia ([facility]) Depression Eczema H/O colonoscopy Hemorrhoid Hx of rosacea Lower extremity edema MARCY (obstructive sleep apnea) The patient wears CPAP Parkinson disease ([facility]) Stroke ([facility]) 2009 Torn meniscus Uterine cancer ([facility]) ([facility]) 2005 Past Surgical History: Procedure Laterality Date BREAST LUMPECTOMY 02/18/2023 Left breast Lumpectomy and sentinel lymph node biopsy BREAST LUMPECTOMY Left 2013 Benign left breast lumpectomy CATARACT EXTRACTION, BILATERAL 2012 Bilateral cataract surgery HYSTERECTOMY 2006 Total Hysterectomy KNEE ARTHROSCOPY Right Patient Active Problem List Diagnosis Date Noted Memory loss 03/18/2023 Pigmented skin lesion suspicious for malignant neoplasm 03/18/2023 Malignant neoplasm of upper-outer quadrant of left breast in female, estrogen receptor positive ([facility]) 03/18/2023 Edema of both lower extremities 02/05/2023 Parkinsonism 02/05/2023 Allergic reaction to bee sting 10/29/2022 Allergic rhinitis 10/29/2022 Eczema 10/29/2022 Eczema 10/29/2022 Elevated TSH 10/29/2022 External hemorrhoids 10/29/2022 Hair loss 10/29/2022 Low back pain 10/29/2022 Menopausal state 10/29/2022 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HCC) 10/29/2022 Mixed anxiety depressive disorder 10/29/2022 Obesity (BMI 30.0-34.9) 10/29/2022 Obstructive sleep apnea syndrome 10/29/2022 Falling 10/29/2022 Seborrheic keratosis 10/29/2022 Rosacea, acne 10/15/2022 Hemangioma of skin and subcutaneous tissue 04/24/2016 Breast calcifications on mammogram 07/24/2013 Cerebrovascular accident (CVA) ([facility]) 06/23/2009 Social History Tobacco Use Smoking status: Never Smokeless tobacco: Never Vaping Use Vaping status: Never Used Substance Use Topics Alcohol use: Not Currently Drug use: Never Family History Problem Relation Name Age of Onset Breast cancer Mother Lung cancer Father Colon cancer Paternal Grandfather Allergies Allergen Reactions Alendronate Unknown and Other Cephalexin Unknown Dye [Gadolinium] Escitalopram Other and Unknown Iodine Other reaction(s): Hives and/or rash Nickel Unknown Penicillins Unknown Other reaction(s): Intolerance-unknown Patient had multiple doses of IV Zosyn in May 2023 and tolerated without issue Pregabalin Unknown Salicylates Other and Unknown D/t HX of CVA Iodinated Contrast Media Hives Hives x 5 locations, redness of right eye. Current Outpatient Medications Medication Sig Dispense Refill Docusate Sodium (DSS) 100 MG capsule Take 100 mg by mouth twice a day. memantine (Namenda) 10 MG tablet Take 1 tablet by mouth 2 (more content not included)... Normal [facility] 36on 08-02-2024 36 Refill request received for anastrazole. Prescription pended. Normal [facility] DBT Breast - bilateral scree noahn 03-26-2024 IMPRESSION: There is no mammographic evidence of malignancy. Routine follow-up mammogram in 1 year is recommended. BI-RADS Category 2: Benign Interpreting Radiologist: Cm Rausch M.D. Electronically signed on: 03/26/2024 Manager Business Continuity: SURESH Transcribe Date/Time: Mar 25 2024 3:19P Dictated by : CM RAUSCH MD This examination was interpreted and the report reviewed and electronically signed by: CM RAUSCH MD on Mar 26 2024 10:24AM [facility] * * *Final Report* * * DATE OF EXAM: Mar 25 2024 3:42PM MAGO [id number] - LEE SCREENING W SHIVA / PROCEDURE REASON: multiple diagnoses * * * * Physician Interpretation * * * * [facility] [address] [place] [address] HISTORY: Patient is 79 years old and is seen for screening. No current complaints. The patient has a history of left breast cancer. COMPARISON STUDIES: The present examination has been compared to prior imaging studies dated 08/13/2019 (mammogram), 08/15/2020 (mammogram), 09/21/2021 (mammogram), 11/27/2022 (mammogram) and 02/12/2023 (mammogram). MAMMOGRAM TECHNIQUE: The study was acquired using full field digital technology and interpreted from soft copy. Digital Breast Tomosynthesis (DBT) images were obtained and used to assist in the interpretation of this examination. Computer-aided detection was utilized by the radiologist in the interpretation of this examination. MAMMOGRAM FINDINGS: There are scattered areas of fibroglandular density. There are postoperative changes in the left breast. No suspicious masses, calcifications or other abnormalities are seen in either breast. [facility] Provider, [facility] [place] - 03/26/2024 * * *Final Report* * * DATE OF EXAM: Mar 25 2024 3:42PM MAGO [id number] - LEE SCREENING W SHIVA / PROCEDURE REASON: multiple diagnoses * * * * Physician Interpretation * * * * [place] [id number] HISTORY: Patient is 79 years old and is seen for screening. No current complaints. The patient has a history of left breast cancer. COMPARISON STUDIES: The present examination has been compared to prior imaging studies dated 08/13/2019 (mammogram), 08/15/2020 (mammogram), 09/21/2021 (mammogram), 11/27/2022 (mammogram) and 02/12/2023 (mammogram). MAMMOGRAM TECHNIQUE: The study was acquired using full field digital technology and interpreted from soft copy. Digital Breast Tomosynthesis (DBT) images were obtained and used to assist in the interpretation of this examination. Computer-aided detection was utilized by the radiologist in the interpretation of this examination. MAMMOGRAM FINDINGS: There are scattered areas of fibroglandular density. There are postoperative changes in the left breast. No suspicious masses, calcifications or other abnormalities are seen in either breast. IMPRESSION IMPRESSION: There is no mammographic evidence of malignancy. Routine follow-up mammogram in 1 year is recommended. BI-RADS Category 2: Benign Interpreting Radiologist: Cm Rausch M.D. Electronically signed on: 03/26/2024 Manager Business Continuity: SURESH Transcriwellington Date/Time: Mar 25 2024 3:19P Dictated by : CM RAUSCH MD This examination was interpreted and the report reviewed and electronically signed by: CM RAUSCH MD on Mar 26 2024 10:24AM EST [facility] DBT Breast - bilateral scree ningOrdered By: Bhupendra Provider on 03-26-2024 [facility] DBT Breast - bilateral scree vannesagon 03-25-2024 Radiology Study observation (narrative) [facility] LEE SCREENING W TOMOon 03-25 LEE SCREENING W SHIVA * * *Final Report* * * DATE OF EXAM: Mar 25 2024 3:42PM MAGO [id number] - LEE SCREENING W SHIVA / PROCEDURE REASON: multiple diagnoses * * * * Physician Interpretation * * * * [place] [address] HISTORY: Patient is 79 years old and is seen for screening. No current complaints. The patient has a history of left breast cancer. COMPARISON STUDIES: The present examination has been compared to prior imaging studies dated 08/13/2019 (mammogram), 08/15/2020 (mammogram), 09/21/2021 (mammogram), 11/27/2022 (mammogram) and 02/12/2023 (mammogram). MAMMOGRAM TECHNIQUE: The study was acquired using full field digital technology and interpreted from soft copy. Digital Breast Tomosynthesis (DBT) images were obtained and used to assist in the interpretation of this examination. Computer-aided detection was utilized by the radiologist in the interpretation of this examination. MAMMOGRAM FINDINGS: There are scattered areas of fibroglandular density. There are postoperative changes in the left breast. No suspicious masses, calcifications or other abnormalities are seen in either breast. IMPRESSION: There is no mammographic evidence of malignancy. Routine follow-up mammogram in 1 year is recommended. BI-RADS Category 2: Benign Interpreting Radiologist: Cm Rausch M.D. Electronically signed on: 03/26/2024 Manager Business Continuity: SURESH Transcriwellington Date/Time: Mar 25 2024 3:19P Dictated by : CM RAUSCH MD This examination was interpreted and the report reviewed and electronically signed by: CM RAUSCH MD on Mar 26 2024 10:24AM EST [id number] CN [facility] Encounteron 024 Hospital Encounter [id number] Madiha Perales 1945 F Date Provider Department Center 03/16/2024 [id number] DIEGO [facility] RAD ON None Family History Problem Relation Age of Onset Breast cancer Mother Lung cancer Father Colon cancer Paternal Grandfather Family Status - Relation Status Age at Mother Father Paternal Grandfather Level of Service:40146 [place] OFFICE/OUTPATIENT ESTABLISHED LOW [facility] 20 MIN Reason for Visit and Comments: Follow-up [[id number]] [facility] Nursing Noteon 03-16-2024 Nursing Note The patient is here at [facility] with her for follow up with Dr. Diego. She arrived in a wheelchair. She uses a care or walker at times to ambulate around the house. She does physical therapy at [facility]. She denies pain at the current time. She denies skin issues at the previous site of radiation. Her appetite and sleeping are good. Her energy level is fair. She is taking Arimidex as prescribed. She is scheduled for her next mammogram in March of 2024. She continues to follow up with Dr. Choi and Dr. Escobedo. [facility] Progress Noteon 03-16-2024 Progress Note RADIATION ONCOLOGY FOLLOW UP PATIENT: Madiha Perales DATE OF SERVICE: 03/16/2024 : 1945 AGE: 79 y.o. PRIMARY SITE AND HISTOPATHOLOGY: Left breast, grade 3 invasive ductal carcinoma, ER positive, WV positive, HER2 positive. STAGE: cT1b N0 M0, IA; pT1c N0 M0, IA HISTORY OF PRESENT ILLNESS: This is a 79-year-old female who was noted to have an abnormal screening mammogram of the upper outer quadrant of the left breast on 11/27/2022. The area was asymptomatic and nonpalpable. Diagnostic views and ultrasound were performed on 01/21/2023. This identified a 0.9 x 0.9 x 1 cm irregular mass in the left breast. Biopsy was performed at [facility] on 01/28/2023. This revealed grade 3 invasive ductal carcinoma measuring at least 8 mm in dimension. ER positive at 100%, WV positive at 70% and HER2 positive at 3+. The patient underwent lumpectomy and sentinel node removal on 02/18/2023. Pathology revealed grade 3 invasive ductal carcinoma measuring 1.9 cm. There was focal DCIS of high-grade. Extensive lymphovascular invasion. Margins were negative for invasive and in situ component at greater than 2 mm. 6 nodes were removed, 5 sentinel and 1 nonsentinel. All were negative. Pathologically staged T1CN0. We were consulted to discuss postoperative radiation therapy. The patient was seen by medical oncology and started weekly Taxol on 04/01/2023 for planned 12 cycles. Trazimera was started with cycle 2. Taxol was discontinued after the eighth cycle on 05/27/2023 due to symptoms. Trazimera was scheduled to continue for 1 year, but required stoppage after the 09/23/2023 dose. Arimidex started 09/02/2023. TREATMENT PLAN: Hypofractionated daily radiation to the left breast. INTERVAL SINCE RADIATION: 1 month ? 07/14/23 - 08/01/23: 40.05/40.05 Gy to the L Breast in 15 fractions of 2.67 Gy using the 3D technique with 10 MV. ? 08/04/23 - 08/12/23: 10.00/10.00 Gy to the L Brst Surg Site in 5 fractions of 2.00 Gy using the Isodose C/Daily IGRT technique with 6 &10 MV. INTERVAL HISTORY: The patient returns with her today for follow-up. Since last seen she required admission for COVID infection with subsequent discharged to [facility]. She utilizes a cane or walker at times around the home and a wheelchair for distance. She is undergoing physical therapy at [facility] physical [facility]. She denies any breast issues. She remains on the Arimidex. The Trazimera was discontinued earlier this year. Appetite is good. Energy level is fair. No respiratory or cardiac complaints. No swelling in the extremities. She is up-to-date with mammography. She continues to follow with her surgeon and medical oncologist. PAST MEDICAL HISTORY: Past Medical History: Diagnosis Date Allergic rhinitis Anxiety Back pain Lower back pain Breast calcifications on mammogram Dementia (HCC) Depression Eczema H/O colonoscopy Hemorrhoid Hx of rosacea Lower extremity edema MARCY (obstructive sleep apnea) The patient wears CPAP Parkinson disease (HCC) Stroke ([facility]) 2009 Torn meniscus Uterine cancer (CMS/HCC) (HCC) 2005 PAST SURGICAL HISTORY: Past Surgical History: Procedure Laterality Date BREAST LUMPECTOMY 02/18/2023 Left breast Lumpectomy and sentinel lymph node biopsy BREAST LUMPECTOMY Left 2013 Benign left breast lumpectomy CATARACT EXTRACTION, BILATERAL 2012 Bilateral cataract surgery HYSTERECTOMY 2006 Total Hysterectomy KNEE ARTHROSCOPY Right ALLERGIES: Allergies as of 03/16/2024 - Reviewed 03/16/2024 Allergen Reaction Noted Alendronate Unknown and Other 05/07/2010 Cephalexin Unknown 05/07/2010 Dye [gadolinium] 03/06/2023 Escitalopram Other and Unknown 10/24/2022 Iodine 03/06/2023 Nickel Unknown 05/07/2010 Penicillins Unknown 05/12/2010 Pregabalin Unknown 05/07/2010 Salicylates Other and Unknown 05/07/2010 Iodinated contrast media Hives 06/14/2010 MEDICATIONS: Current Outpatient Medications Medication Sig Dispense Refill anastrozole (Arimidex) 1 MG tablet Take 1 tablet (1 mg total) by mouth daily. Swallow whole with a drink of water. 30 tablet 5 Calcium Carbonate-Vitamin D (OSCAL 500/200 D-3 PO) Take 1 tablet by mouth in the morning. carbidopa-levodopa (Sinemet) 25-100 MG tablet every 8 hours. diphenhydrAMINE HCl (NERVINE PO) daily. DULoxetine (Cymbalta) [address] capsule Take 1 capsule (20 mg) by mouth once daily. loratadine (Claritin) 10 MG tablet Take by mouth daily. memantine (Namenda) 10 MG tablet Take 10 mg by mouth in the morning and 10 mg in the evening. MULTIPLE VITAMIN PO Take 1 capsule by mouth in the morning. psyllium (Metamucil) 28.3 % powder Take 3.4 g of fiber by mouth daily. VITAMIN D PO Take by mouth. 2 gummies a day amoxicillin (Amoxil) 500 MG tablet Take 500 mg by mouth in the morning and 500 mg before bedtime. Unknown dose, unknown strength. CALCIUM CARB-CHOLECALCIFEROL PO (more content not included)... Normal [facility] 02-19-2024 CNOV Office Visit (GENE) MADIHA PERALES ([id number]) 1945 F Date Time Provider Department 02/19/24 9:15 AM TORRIE CHOI During your visit today, we recorded the following information about you: Pulse Blood pressure Weight Height 79/minute 124/84 93.9 kg 1.651 m Torrie Choi MD 02/19/2024 2:08 PM Signed PROGRESS NOTES PATIENT NAME: Madiha Perales Assessment ASSESSMENT/PLAN: (C50.412, Z17.0) Malignant neoplasm of upper-outer quadrant of left breast in female, estrogen receptor positive (HCC) (primary encounter diagnosis) Madiha presents in follow-up of her left breast cancer diagnosed in January 2023. There is no clinical evidence for recurrence. She is scheduled for her next mammogram in March. She can follow-up with oncology as scheduled. She can return to see me as needed. I have encouraged her to discuss Arimidex with Dr. Escobedo. No orders found for this visit on 02/19/24. SUBJECTIVE CHIEF COMPLAINT: Patient presents with: Follow Up: follow up Malignant neoplasm of upper-outer quadrant of left breast in female, estrogen receptor positive (HCC) [facility] Oncology Notes under scanned Documents INTERVAL HISTORY OF PRESENT ILLNESS: Madiha presents in follow-up of her left breast cancer diagnosed in January 2023. She was treated with chemotherapy, Herceptin, and radiation. She was not able to complete all of her therapies due to her worsening dementia. She is currently on Arimidex. Her is concerned that this may be worsening her dementia. Overall she is without complaint. HISTORIES: PAST MEDICAL HISTORY No date: Anemia 02/05/2023: Anxiety and depression 07/24/2013: Breast calcifications on mammogram No date: Cancer (HCC) Comment: uterine 06/05/2023: Fever in adult 10/08/2023: Obesity, Class I, BMI 30-34.9 No date: MARCY on CPAP 02/05/2023: MARCY on CPAP 07/24/2005: PMH - PAST MEDICAL HISTORY OF Comment: Uterine cancer s/p hyst (no XRT/chemo needed) 10/08/2023: Senile dementia (HCC) Comment: per dgtr taking meds to slow progression 06/23/2009: Stroke (HCC) PAST SURGICAL HISTORY 06/23/1977: BREAST BIOPSY Comment: left breast,benign 02/18/2023: BREAST LUMPECTOMY HX; Left Comment: Dr. Choi 06/23/2012: COLONOSCOPY 07/24/2005: HYSTERECTOMY HX Comment: total 08/09/2013: MAMMOTOME BIOPSY RIGHT No date: PAST SURGICAL HISTORY OF Comment: right knee arthroscopy for torn meniscus, no hardware 06/23/2012: REMOVE CATARACT, INSERT LENS, INTRACAPSUL ALLERGIES: Alendronic Acid, Asa [Salicylates], Cephalexin, Lyrica [Pregabalin], Mri Contrast [Iodine], Nickel, and Penicillins MEDICATIONS: Current Outpatient Medications Medication Sig anastrozole (ARIMIDEX) 1 mg tablet Take 1 mg by mouth once daily. memantine (NAMENDA) 10 mg tablet Take 10 mg by mouth once daily. ondansetron (ZOFRAN) 8 mg tablet Take 8 mg by mouth every 8 hours as needed for nausea/vomiting. prochlorperazine (COMPAZINE) 10 mg tablet Take 10 mg by mouth every 6 hours as needed for nausea/vomiting. Multivitamin capsule Take 1 capsule by mouth once daily. loratadine (CLARITIN) 10 mg tablet Take 1 tablet by mouth every afternoon. DULoxetine (CYMBALTA) 20 mg capsule Take 1 capsule (20 mg) by mouth once daily. carbidopa-levodopa (SINEMET 25-100) 25-100 mg per tablet Take 1 tablet by mouth three times a day. Take 1 tablet at 10 am, 3 pm, and 8 pm No current facility-administere d medications for this visit. FAMILY HISTORY Problem Relation Age of Onset Breast Cancer Mother Cancer Mother Thyroid Mother other (htn [Other]) Mother other (hyperlipidemia [Other]) Mother other (hypothyroid [Other]) Mother Cancer Father other (lung cancer [Other]) Father other (liver cancer [Other]) Father other (healthy [Other]) Sister other (healthy [Other]) Brother Hypertension Maternal Grandmother Stroke Maternal Grandfather other (cva [Other]) Maternal Grandfather Cancer Paternal Grandmother other (brain cancer [Other]) Paternal Grandmother Colon Cancer Paternal Grandfather Anesthesia Problems No Family History Social History Tobacco Use Smoking status: Never Smokeless tobacco: Never Vaping Use Vaping status: Never Used Substance Use Topics Alcohol use: No Drug use: No OBJECTIVE PHYSICAL EXAM: BP 124/84 Pulse 79 Ht 5' 5 (1.65m) Wt 207 lb (93.9kg) SpO2 97% BMI 34.45 kg/(m2). General: Well developed, well-nourished, female in no distress HEENT: Normocephalic, atraumatic. Extraocular movements intact. Sclera are nonicteric. Breasts: Well-healed left breast incisions, no palpable masses of concern. No masses in the right breast of concern. No nipple discharge. No skin changes. No axillary lymphadenopathy bilaterally. Heart: Regular rate and rhythm, no murmur Lungs: Clear to auscultation without wheezes Extremiti (more content not included)... Normal [facility] 36on 02-03-2024 36 Refill for Arimidex pended to be signed if agreeable. Normal [facility] ([id number]) 1945 F Date Time Provider Department 02/03/24 TORRIE CHOI During your visit today, we recorded the following information about you: Chanelle Rosenberg 02/03/2024 10:[address] Grubbs's office called to ask when patient needed scheduled for her next mamogram Yue Spear, RN 02/03/2024 10:48 AM Signed Order placed per patient's request for mammogram and/or breast ultrasound. Routed to provider/MD to approve. Lucius Dubose PA-C 02/04/2024 8:01 AM Signed Orders signed. Yue Spear RN 02/04/2024 9:24 AM Signed Voice message left for patient re order Advised to call office if further questions or concerns. Number provided to call. Encounter closed. Allergies As of Date: 02/03/2024 Noted Allergy Reaction ALENDRONIC ACID 05/07/2010 16 - Unknown ASA (SALICYLATES) 05/07/2010 16 - Unknown CEPHALEXIN 05/07/2010 16 - Unknown LYRICA (PREGABALIN) 05/07/2010 16 - Unknown MRI CONTRAST (IODINE) 06/05/2023 4 - Hives Comments: Hives x 5 locations, redness of right eye. NICKEL 05/07/2010 16 - Unknown PENICILLINS 05/12/2010 16 - Unknown Date Reviewed: 10/14/2023 Reviewed by: Claudia Carter LPN - Fully Assessed Reason for Visit: Patient Question [1477] Primary Visit Diagnosis:Visit for screening mammogram [Z12.31] Other Visit Diagnosis:Malignant neoplasm of upper-outer quadrant of left breast in female, estrogen receptor positive (HCC) [C50.412, Z17.0] Order(s):LEE SCREENING W SHIVA [[id number]] Order #: [id number] FUTURE Prescriptions as of 02/05/2024 - anastrozole (ARIMIDEX) 1 mg tablet Take 1 mg by mouth once daily. - memantine (NAMENDA) 10 mg tablet Take 10 mg by mouth once daily. - ondansetron (ZOFRAN) 8 mg tablet Take 8 mg by mouth every 8 hours as needed for nausea/vomiting. - prochlorperazine (COMPAZINE) 10 mg tablet Take 10 mg by mouth every 6 hours as needed for nausea/vomiting. - Multivitamin capsule Take 1 capsule by mouth once daily. - loratadine (CLARITIN) 10 mg tablet Take 1 tablet by mouth every afternoon. - DULoxetine (CYMBALTA) 20 mg capsule Take 1 capsule (20 mg) by mouth once daily. - carbidopa-levodopa (SINEMET 25-100) 25-100 mg per tablet Take 1 tablet by mouth three times a day. Take 1 tablet at 10 am, 3 pm, and 8 pm Meds Comments as of 06/12/2023: 06/12/23, patient is now finished with levofloxacin, S Fernandez RN Problem List As Of Date 02/03/2024 Noted Resolved Breast calcifications on mammogram [R92.1] 07/24/2013 MARCY on CPAP [G47.33] 02/05/2023 History of uterine cancer [Z85.42] 07/24/2005 Stroke (HCC) [I63.9] 06/23/2009 Anxiety and depression [F41.9, F32.A] 02/05/2023 Parkinsonism [G20.C] 02/05/2023 Malignant neoplasm of lower-outer quadrant of l*02/05/2023 Personal history of penicillin allergy [Z88.0] 02/05/2023 Malignant neoplasm of upper-outer quadrant of l*02/18/2023 Fever in adult [R50.9] 06/05/2023 FTT (failure to thrive) in adult [R62.7] 06/05/2023 Neutropenic fever (HCC) (HCC) [D70.9, R50.81] 06/05/2023 06/08/2023 HCAP (healthcare-associat ed pneumonia) [J18.9] 06/08/2023 Obesity, Class I, BMI 30-34.9 [E66.9] 10/08/2023 Pneumonia due to COVID-19 virus [U07.1, J12.82] 10/08/2023 Acute hypoxic respiratory failure (HCC) [J96.01]10/09/2023 Toxic encephalopathy [G92.9] 10/09/2023 Encounter Status:Closed by CHANELLE ROSENBERG on 02/05/24 Normal [facility] Office Visiton 02-03-2024 Follow-up visit [id number] Madiha Perales 1945 F Date Provider Department Center 02/03/2024 [id number] ESCOBEDO ONC None Family History Problem Relation Age of Onset Breast cancer Mother Lung cancer Father Colon cancer Paternal Grandfather Family Status - Relation Status Age at Mother Father Paternal Grandfather Level of Service:48683 [place] OFFICE/OUTPATIENT ESTABLISHED MOD MDM 30 MIN Reason for Visit and Comments: Breast Mass [[id number]] [facility] Progress Noteon 02-03-2024 Progress Note Hematology/Oncology Office Visit Oncology History: 1) stage 1A left breast cancer, invasive ductal carcinoma grade 3. ER+ WV+ HER2+. cT1b N0 M0; pT1c N0 M0, diagnosed 01/28/23. - Patient is a 78 yo F who presented with an abnormal screening mammogram of the upper outer quadrant of the left breast on 11/27/22. Diagnostic imaging and ultrasound were performed on 01/21/2023: a 0.9 x 0.9 x 1 cm irregular mass in the left breast. Biopsy was performed at [facility] on 01/28/2023 confirming grade 3 invasive ductal carcinoma ER positive 100%, WV positive 70% and HER2 positive at 3+. The patient underwent lumpectomy and sentinel node removal on 02/18/[address] Choi at [facility]: pathology revealed grade 3 invasive ductal carcinoma measuring 1.9 cm. There was focal DCIS and extensive lymphovascular invasion. Margins were negative for invasive and in situ component at greater than 2 mm. 6 axillary nodes were removed: 5 sentinel and 1 nonsentinel. All were negative.Ban harrison staged T1CN0. - she was referred to [facility] for medical and radiation oncology. Her case was reviewed at our tumor board and adjuvant chemotherapy, radiation, and AI therapy were recommended. She started weekly taxol and herceptin on 04/01/23. She required a 25% reduction in Taxol for cycle 3 due to neutropenia. She completed 8 of the 12 planned cycles of weekly Taxol, but the Taxol was stopped early due to poor tolerance. Herceptin every 3 weeks continued. - radiation started 07/14/23 and she completed it 08/12/23 - Arimidex started 09/02/23. She had several falls and required hospitalizations. Herceptin discontinued (last dose was 09/23/23). HPI: Madiha Perales is a 79 y.o. female who comes in today for routine follow up. She has no breast concerns today and feels at her baseline. She is accompanied by her today. She arrived to clinic in a wheelchair. She is tolerating Arimidex well. No chest pain or shortness of breath. Appetite is good. No fevers or chills. No swelling. No headaches. No bone pain. Recall, patient has Parkinson's and had a stroke a few years ago, but is generally doing well at home. She is active the majority of the day and continues to take care of the house. She does have some mild expressive aphasia as well as short term memory loss. Past Medical History: Diagnosis Date Allergic rhinitis Anxiety Back pain Lower back pain Breast calcifications on mammogram Dementia ([facility]) Depression Eczema H/O colonoscopy Hemorrhoid Hx of rosacea Lower extremity edema MARCY (obstructive sleep apnea) The patient wears CPAP Parkinson disease ([facility]) Stroke ([facility]) 2009 Torn meniscus Uterine cancer ([facility]) ([facility]) 2005 Past Surgical History: Procedure Laterality Date BREAST LUMPECTOMY 02/18/2023 Left breast Lumpectomy and sentinel lymph node biopsy BREAST LUMPECTOMY Left 2013 Benign left breast lumpectomy CATARACT EXTRACTION, BILATERAL 2012 Bilateral cataract surgery HYSTERECTOMY 2006 Total Hysterectomy KNEE ARTHROSCOPY Right Patient Active Problem List Diagnosis Date Noted Memory loss 03/18/2023 Pigmented skin lesion suspicious for malignant neoplasm 03/18/2023 Malignant neoplasm of upper-outer quadrant of left breast in female, estrogen receptor positive ([facility]) 03/18/2023 Edema of both lower extremities 02/05/2023 Parkinsonism 02/05/2023 Allergic reaction to bee sting 10/29/2022 Allergic rhinitis 10/29/2022 Eczema 10/29/2022 Eczema 10/29/2022 Elevated TSH 10/29/2022 External hemorrhoids 10/29/2022 Hair loss 10/29/2022 Low back pain 10/29/2022 Menopausal state 10/29/2022 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[facility]) 10/29/2022 Mixed anxiety depressive disorder 10/29/2022 Obesity (BMI 30.0-34.9) 10/29/2022 Obstructive sleep apnea syndrome 10/29/2022 Falling 10/29/2022 Seborrheic keratosis 10/29/2022 Rosacea, acne 10/15/2022 Hemangioma of skin and subcutaneous tissue 04/24/2016 Breast calcifications on mammogram 07/24/2013 Cerebrovascular accident (CVA) ([facility]) 06/23/2009 Social History Tobacco Use Smoking status: Never Smokeless tobacco: Never Vaping Use Vaping status: Never Used Substance Use Topics Alcohol use: Not Currently Drug use: Never Family History Problem Relation Name Age of Onset Breast cancer Mother Lung cancer Father Colon cancer Paternal Grandfather Allergies Allergen Reactions Alendronate Unknown and Other Cephalexin Unknown Dye [Gadolinium] Escitalopram Other and Unknown Iodine Other reaction(s): Hives and/or rash Nickel Unknown Penicillins Unknown Other reaction(s): Intolerance-unknown Patient had multiple doses of IV Zosyn in May 2023 and tolerated without issue Pregabalin Unknown Salicylates Other and Unknown D/t HX of CVA Iodinated Contrast Media Hives Hives x 5 locations, redness of right eye. Current Outpatient Medications Medication Sig Dispense Refill amoxicillin (more content not included)... Normal [facility] Office Visiton 11-04-2023 Follow-up visit [id number] Madiha Perales 1945 F Date Provider Department Center 11/04/2023 [id number] ONC None Family History Problem Relation Age of Onset Breast cancer Mother Lung cancer Father Colon cancer Paternal Grandfather Family Status - Relation Status Age at Mother Father Paternal Grandfather Level of Service:62992 [place] OFFICE/OUTPATIENT ESTABLISHED MOD MDM 30 MIN Reason for Visit and Comments: Breast Cancer [302] Normal [facility] Progress Noteon 11-04-2023 Progress Note Hematology/Oncology Office Visit Oncology History: 1) stage 1A left breast cancer, invasive ductal carcinoma grade 3. ER+ WV+ HER2+. cT1b N0 M0; pT1c N0 M0, diagnosed 01/28/23. - Patient is a 78 yo F who presented with an abnormal screening mammogram of the upper outer quadrant of the left breast on 11/27/22. Diagnostic imaging and ultrasound were performed on 01/21/2023: a 0.9 x 0.9 x 1 cm irregular mass in the left breast. Biopsy was performed at [facility] on 01/28/2023 confirming grade 3 invasive ductal carcinoma ER positive 100%, WV positive 70% and HER2 positive at 3+. The patient underwent lumpectomy and sentinel node removal on 02/18/[address] Choi at [facility]: pathology revealed grade 3 invasive ductal carcinoma measuring 1.9 cm. There was focal DCIS and extensive lymphovascular invasion. Margins were negative for invasive and in situ component at greater than 2 mm. 6 axillary nodes were removed: 5 sentinel and 1 nonsentinel. All were negative.Pathologica christy staged T1CN0. - she was referred to [facility] for medical and radiation oncology. Her case was reviewed at our tumor board and adjuvant chemotherapy, radiation, and AI therapy were recommended. She started weekly taxol and herceptin on 04/01/23. She required a 25% reduction in Taxol for cycle 3 due to neutropenia. She completed 8 of the 12 planned cycles of weekly Taxol, but the Taxol was stopped early due to poor tolerance. Herceptin every 3 weeks continued. - radiation started 07/14/23 and she completed it 08/12/23 - Arimidex started 09/02/23. She had several falls and required hospitalizations. Herceptin discontinued (last dose was 09/23/23). HPI: Madiha Perales is a 78 y.o. female who comes in today for hospital follow up. She is accompanied by her and daughters today. She is recovering at home. She was hospitalized for falls, Parkinson's etc. She had COVID and UTI as well. She is tolerating Arimidex well. No chest pain or shortness of breath. PO intake improved. No fevers or chills. No swelling. No headaches. She is participating in PT. Recall, patient has Parkinson's and had a stroke a few years ago, but is generally doing well at home. She is active the majority of the day and continues to take care of the house. She does have some mild expressive aphasia as well as short term memory loss. Past Medical History: Diagnosis Date Allergic rhinitis Anxiety Back pain Lower back pain Breast calcifications on mammogram Dementia ([facility]) Depression Eczema H/O colonoscopy Hemorrhoid Hx of rosacea Lower extremity edema MARCY (obstructive sleep apnea) The patient wears CPAP Parkinson disease ([facility]) Stroke ([facility]) 2009 Torn meniscus Uterine cancer ([facility]) ([facility]) 2005 Past Surgical History: Procedure Laterality Date BREAST LUMPECTOMY 02/18/2023 Left breast Lumpectomy and sentinel lymph node biopsy BREAST LUMPECTOMY Left 2013 Benign left breast lumpectomy CATARACT EXTRACTION, BILATERAL 2012 Bilateral cataract surgery HYSTERECTOMY 2006 Total Hysterectomy KNEE ARTHROSCOPY Right Patient Active Problem List Diagnosis Date Noted Memory loss 03/18/2023 Pigmented skin lesion suspicious for malignant neoplasm 03/18/2023 Malignant neoplasm of upper-outer quadrant of left breast in female, estrogen receptor positive ([facility]) 03/18/2023 Edema of both lower extremities 02/05/2023 Parkinsonism 02/05/2023 Allergic reaction to bee sting 10/29/2022 Allergic rhinitis 10/29/2022 Eczema 10/29/2022 Eczema 10/29/2022 Elevated TSH 10/29/2022 External hemorrhoids 10/29/2022 Hair loss 10/29/2022 Low back pain 10/29/2022 Menopausal state 10/29/2022 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[facility]CC) 10/29/2022 Mixed anxiety depressive disorder 10/29/2022 Obesity (BMI 30.0-34.9) 10/29/2022 Obstructive sleep apnea syndrome 10/29/2022 Falling 10/29/2022 Seborrheic keratosis 10/29/2022 Rosacea, acne 10/15/2022 Hemangioma of skin and subcutaneous tissue 04/24/2016 Breast calcifications on mammogram 07/24/2013 Cerebrovascular accident (CVA) ([facility]) 06/23/2009 Social History Tobacco Use Smoking status: Never Smokeless tobacco: Never Vaping Use Vaping Use: Never used Substance Use Topics Alcohol use: Not Currently Drug use: Never Family History Problem Relation Name Age of Onset Breast cancer Mother Lung cancer Father Colon cancer Paternal Grandfather Allergies Allergen Reactions Alendronate Unknown and Other Cephalexin Unknown Dye [Gadolinium] Escitalopram Other and Unknown Iodine Other reaction(s): Hives and/or rash Nickel Unknown Penicillins Unknown Other reaction(s): Intolerance-unknown Patient had multiple doses of IV Zosyn in May 2023 and tolerated without issue Pregabalin Unknown Salicylates Other and Unknown D/t HX of CVA Iodinated Contrast Media Hives Hives x 5 locations, redness of right eye. Current Outpatient Medications Medicat (more content not included)... Normal [facility] Basic metabolic 2000 panelon 10-27-2023 Anion gap [Moles/Vol] 12 mmol/L 9 - 18 mmol/L [facility] Calcium [Mass/Vol] 8.5 mg/dL 8.5 - 10. 2 mg/dL [facility] Chloride [Moles/Vol] 107 mmol/L High 97 - 10 5 mmol/L [facility] CO2 [Moles/Vol] 24 mmol/L 22 - 30 mmol/L [facility] Creatinine [Mass/Vol] 0.71 mg/dL 0.58 - 0.96 mg/dL [facility] GFR/1.73 sq M.predicted among non-blacks MDRD (S/P/Bld) [Vol rate/Area] 88 mL/min/{1.73_m2} - PINF [facility] Comment on above: Estimated Glomerular Filtration Rate (eGFR) is calculated using the 2020 CKD-EPI creatinine equation. This equation utilizes serum creatinine, sex, and age as parameters. The creatinine assay has traceable calibration to isotope dilution-mass spectrometry. Refer to KDIGO guidelines for clinical interpretation. In patients with unstable renal function, e.g. those with acute kidney injury, the eGFR may not accurately reflect actual GFR. Glucose [Mass/Vol] 77 mg/dL 74 - 99 mg/dL [facility] Comment on above: The [place] Diabete s Association (ADA) provides guidance for cutoff values for fasting glucose and random glucose. The ADA defines fasting as no caloric intake for at least 8 hours. Fasting plasma glucose results between 100 to 125 mg/dL indicate increased risk for diabetes (prediabetes). Fasting plasma glucose results greater than or equal to 126 mg/dL meet the criteria for diagnosis of diabetes. In the absence of unequivocal hyperglycemia, results should be confirmed by repeat testing. In a patient with classic symptoms of hyperglycemia or hyperglycemic crisis, random plasma glucose results greater than or equal to 200 mg/dL meet the criteria for diagnosis of diabetes. Reference: Standards of Medical Care in Diabetes 2016, [place] Diabetes Association. Diabetes Care. 2016.39(Suppl 1). Interpretation and review of laboratory results Abnormal [facility] Potassium [Moles/Vol] 4.2 mmol/L 3.7 - 5.1 mmol/L [facility] Sodium [Moles/Vol] 143 mmol/L 136 - 144 mmol/L [facility] Urea nitrogen [Mass/Vol] 17 mg/dL 7 - 21 mg/dL [facility] Anion gap [Moles/Vol] 12 mmol/L Normal 9-18 [facility] Comment on above: Order Comment: Speci men Type: BLOOD SPECIMEN Ordering Facility: [facility] Mily Selby Address: [address] [place] [address] Performed By: #### 2 4321-2 #### [facility] CLIA [id number] [address] [place] [address] [place] Calcium [Mass/Vol] 8.5 mg/dL Normal 8.5-10.2 [facility] Comment on above: Order Comment: Speci men Type: BLOOD SPECIMEN Ordering Facility: [facility] [place] Address: [address] [place] [address] Performed By: #### 2 4321-2 #### [facility] CLIA [id number] [address] [place] [address] [place] Chloride [Moles/Vol] 107 mmol/L High 97-105 [facility] Comment on above: Order Comment: Speci men Type: BLOOD SPECIMEN Ordering Facility: [facility] [place] Address: [address] [place] [address] Performed By: #### 2 4321-2 #### [facility] CLIA [id number] [address] [place] [address] [place] CO2 [Moles/Vol] 24 mmol/L Normal 22-30 [facility] Comment on above: Order Comment: Speci men Type: BLOOD SPECIMEN Ordering Facility: [facility] [place] Address: [address] [place] [address] Performed By: #### 2 4321-2 #### [facility] CLIA [id number] [address] [place] [address] [place] Creatinine [Mass/Vol] 0.71 mg/dL Normal 0.58-0.96 [facility] Comment on above: Order Comment: Speci men Type: BLOOD SPECIMEN Ordering Facility: [facility] [place] Address: [address] [place] [address] Performed By: #### 2 4321-2 #### [facility] CLIA [id number] [address] [place] [address] [place] Creatinine and Glomerular filtration rate.predicted panel (S/P/Bld) 88 mL/min/1.73m??? Normal >=60 [facility] Comment on above: Order Comment: Speci men Type: BLOOD SPECIMEN Ordering Facility: [facility] [place] Address: [address] [place] [address] Result Comment: Mateo mated Glomerular Filtration Rate (eGFR) is calculated using the 2020 CKD-EPI creatinine equation. This equation utilizes serum creatinine, sex, and age as parameters. The creatinine assay has traceable calibration to isotope dilution-mass spectrometry. Refer to KDIGO guidelines for clinical interpretation. In patients with unstable renal function, e.g. those with acute kidney injury, the eGFR may not accurately reflect actual GFR. Performed By: #### 2 4321-2 #### [facility] CLIA [id number] [address] [place] [address] [place] Glucose [Mass/Vol] 77 mg/dL Normal 74-99 [facility] Comment on above: Order Comment: Yoav lujan Type: BLOOD SPECIMEN Ordering Facility: [facility] [place] Address: [address] [place] [address] Result Comment: The [place] Diabetes Association (ADA) provides guidance for cutoff values for fasting glucose and random glucose. The ADA defines fasting as no caloric intake for at least 8 hours. Fasting plasma glucose results between 100 to 125 mg/dL indicate increased risk for diabetes (prediabetes). Fasting plasma glucose results greater than or equal to 126 mg/dL meet the criteria for diagnosis of diabetes. In the absence of unequivocal hyperglycemia, results should be confirmed by repeat testing. In a patient with classic symptoms of hyperglycemia or hyperglycemic crisis, random plasma glucose results greater than or equal to 200 mg/dL meet the criteria for diagnosis of diabetes. Reference: Standards of Medical Care in Diabetes 2016, [place] Diabetes Association. Diabetes Care. 2016.39(Suppl 1). Performed By: #### 2 4321-2 #### [facility] CLIA [id number] [address] [place] [address] [place] Potassium [Moles/Vol] 4.2 mmol/L Normal 3.7-5.1 [facility] Comment on above: Order Comment: Yoav lujan Type: BLOOD SPECIMEN Ordering Facility: [facility] [place] Address: [address] [place] [address] Performed By: #### 2 4321-2 #### [facility] CLIA [id number] [address] [place] [address] [place] Sodium [Moles/Vol] 143 mmol/L Normal 136-144 [facility] Comment on above: Order Comment: Nehemiahi men Type: BLOOD SPECIMEN Ordering Facility: [facility] [place] Address: [address] [place] [address] Performed By: #### 2 4321-2 #### [facility] CLIA [id number] [address] [place] [address] STATES [facility] Urea nitrogen [Mass/Vol] 17 mg/dL Normal 7-21 [facility] Comment on above: Order Comment: Speci men Type: BLOOD SPECIMEN Ordering Facility: [facility] [place] Address: [address] [place] [address] Performed By: #### 2 4321-2 #### [facility] CLIA [id number] [address] [place] [address] [place] CBC panel Auto (Bld)on 10-26 Erythrocyte distribution width (RBC) [Ratio] 14.8 % 11.5 - 15.0 % [facility] Hematocrit (Bld) [Volume fraction] 39.8 % 36.0 - 46.0 % [facility] Hemoglobin (Bld) [Mass/Vol] 12.9 g/dL 11.5 - 15.5 g/dL [facility] Interpretation and review of laboratory results Normal [facility] MCH (RBC) [Entitic mass] 29.9 pg 26.0 - 34.0 pg [facility] MCHC (RBC) [Mass/Vol] 32.4 g/dL 30.5 - 36.0 g/dL [facility] MCV (RBC) [Entitic vol] 92.1 fL 80.0 - 100.0 fL [facility] Nucleated RBC (Bld) [#/Vol] NINF [facility] Platelet mean volume (Bld) [Entitic vol] 10.6 fL 9.0 - 12.7 fL [facility] Platelets (Bld) [#/Vol] 168 10*3/uL [facility] RBC (Bld) [#/Vol] 4.32 10*6/uL 3.90 - 5.2 0 m/uL [facility] WBC (Bld) [#/Vol] 5.72 10*3/uL [facility] Erythrocyte distribution width (RBC) [Ratio] 14.8 % Normal 11.5-15.0 [facility] Comment on above: Order Comment: Speci men Type: BLOOD SPECIMEN Ordering Facility: [facility] [place] Address: [address] [place] [address] Performed By: #### 5 8410-2 #### [facility] CLIA [id number] [address] [place] [address] [place] Hematocrit (Bld) [Volume fraction] 39.8 % Normal 36.0-46.0 [facility] Comment on above: Order Comment: Speci men Type: BLOOD SPECIMEN Ordering Facility: [facility] [place] Address: [address] [place] [address] Performed By: #### 5 8410-2 #### [facility] CLIA [id number] [address] [place] [address] [place] Hemoglobin (Bld) [Mass/Vol] 12.9 g/dL Normal 11.5-15.5 [facility] Comment on above: Order Comment: Speci men Type: BLOOD SPECIMEN Ordering Facility: [facility] [place] Address: [address] [place] [address] Performed By: #### 5 8410-2 #### [facility] CLIA [id number] [address] [place] [address] [place] MCH (RBC) [Entitic mass] 29.9 pg Normal 26.0-34.0 [facility] Comment on above: Order Comment: Speci men Type: BLOOD SPECIMEN Ordering Facility: [facility] [place] Address: [address] [place] [address] Performed By: #### 5 8410-2 #### [facility] CLIA [id number] [address] [place] [address] [place] MCHC (RBC) [Mass/Vol] 32.4 g/dL Normal 30.5-36.0 [facility] Comment on above: Order Comment: Speci men Type: BLOOD SPECIMEN Ordering Facility: [facility] [place] Address: [address] [place] [address] Performed By: #### 5 8410-2 #### [facility] CLIA [id number] [address] [place] [address] [place] MCV (RBC) [Entitic vol] 92.1 fL Normal 80.0-100.0 C [facility] Comment on above: Order Comment: Speci men Type: BLOOD SPECIMEN Ordering Facility: [facility] [place] Address: [address] [place] [address] Performed By: #### 5 8410-2 #### [facility] CLIA [id number] [address] [place] [address] [place] Nucleated RBC (Bld) [#/Vol] 10*3/uL Normal <0.01 [facility] Comment on above: Order Comment: Speci men Type: BLOOD SPECIMEN Ordering Facility: [facility] [place] Address: [address] [place] [address] Performed By: #### 5 8410-2 #### [facility] CLIA [id number] [address] [place] [address] [place] Platelet mean volume (Bld) [Entitic vol] 10.6 fL Normal 9.0-12.7 [facility] Comment on above: Order Comment: Speci men Type: BLOOD SPECIMEN Ordering Facility: [facility] [place] Address: [address] [place] [address] Performed By: #### 5 8410-2 #### [facility] CLIA [id number] [address] [place] [address] [place] Platelets (Bld) [#/Vol] 168 10*3/uL Normal 150-400 [facility] Comment on above: Order Comment: Speci men Type: BLOOD SPECIMEN Ordering Facility: [facility] [place] Address: [address] [place] [address] Performed By: #### 5 8410-2 #### [facility] CLIA [id number] [address] [place] [address] [place] RBC (Bld) [#/Vol] 4.32 10*6/uL Normal 3.90-5.20 [facility] Comment on above: Order Comment: Speci men Type: BLOOD SPECIMEN Ordering Facility: [facility] [place] Address: [address] [place] [address] Performed By: #### 5 8410-2 #### [facility] CLIA [id number] [address] [place] [id number] [place] WBC (Bld) [#/Vol] 5.72 10*3/uL Normal 3.70-11.00 [facility] Comment on above: Order Comment: Speci men Type: BLOOD SPECIMEN Ordering Facility: [facility] [place] Address: [address] [place] [address] Performed By: #### 5 8410-2 #### [facility] CLIA [id number] [address] [place] [id number] [place] Basic metabolic 2000 panelon 10-23-2023 Anion gap [Moles/Vol] 9 mmol/L 9 - 18 mmol/L [facility] Calcium [Mass/Vol] 8.5 mg/dL 8.5 - 10. 2 mg/dL [facility] Chloride [Moles/Vol] 104 mmol/L 97 - 10 5 mmol/L [facility] CO2 [Moles/Vol] 27 mmol/L 22 - 30 mmol/L [facility] Creatinine [Mass/Vol] 0.73 mg/dL 0.58 - 0.96 mg/dL [facility] GFR/1.73 sq M.predicted among non-blacks MDRD (S/P/Bld) [Vol rate/Area] 85 mL/min/{1.73_m2} - PINF [facility] Comment on above: Estimated Glomerular Filtration Rate (eGFR) is calculated using the 2020 CKD-EPI creatinine equation. This equation utilizes serum creatinine, sex, and age as parameters. The creatinine assay has traceable calibration to isotope dilution-mass spectrometry. Refer to KDIGO guidelines for clinical interpretation. In patients with unstable renal function, e.g. those with acute kidney injury, the eGFR may not accurately reflect actual GFR. Glucose [Mass/Vol] 76 mg/dL 74 - 99 mg/dL [facility] Comment on above: The [place] Diabete s Association (ADA) provides guidance for cutoff values for fasting glucose and random glucose. The ADA defines fasting as no caloric intake for at least 8 hours. Fasting plasma glucose results between 100 to 125 mg/dL indicate increased risk for diabetes (prediabetes). Fasting plasma glucose results greater than or equal to 126 mg/dL meet the criteria for diagnosis of diabetes. In the absence of unequivocal hyperglycemia, results should be confirmed by repeat testing. In a patient with classic symptoms of hyperglycemia or hyperglycemic crisis, random plasma glucose results greater than or equal to 200 mg/dL meet the criteria for diagnosis of diabetes. Reference: Standards of Medical Care in Diabetes 2016, [place] Diabetes Association. Diabetes Care. 2016.39(Suppl 1). Interpretation and review of laboratory results Normal [facility] Potassium [Moles/Vol] 4.2 mmol/L 3.7 - 5.1 mmol/L [facility] Sodium [Moles/Vol] 140 mmol/L 136 - 144 mmol/L [facility] Urea nitrogen [Mass/Vol] 15 mg/dL 7 - 21 mg/dL [facility] Anion gap [Moles/Vol] 9 mmol/L Normal 9-18 [facility] Comment on above: Order Comment: Yoav lujan Type: BLOOD SPECIMEN Ordering Facility: [facility] [place] Address: [address] [place] [address] Performed By: #### 5 8410-2 #### [facility] CLIA [id number] [address] [place] [address] [place] Calcium [Mass/Vol] 8.5 mg/dL Normal 8.5-10.2 [facility] Comment on above: Order Comment: Yoav lujan Type: BLOOD SPECIMEN Ordering Facility: [facility], [place] Address: [address] [place] [address] Performed By: #### 5 8410-2 #### [facility] CLIA [id number] [address] [place] [address] [place] Chloride [Moles/Vol] 104 mmol/L Normal 97-105 [facility] Comment on above: Order Comment: Yoav lujan Type: BLOOD SPECIMEN Ordering Facility: [facility], [place] Address: [address] [place] [address] Performed By: #### 5 8410-2 #### [facility] CLIA [id number] [address] [place] [address] [place] CO2 [Moles/Vol] 27 mmol/L Normal 22-30 [facility] Comment on above: Order Comment: Speci men Type: BLOOD SPECIMEN Ordering Facility: [facility], [place] Address: [address] [place] [address] Performed By: #### 5 8410-2 #### [facility] CLIA [id number] [address] [place] [address] [place] Creatinine [Mass/Vol] 0.73 mg/dL Normal 0.58-0.96 [facility] Comment on above: Order Comment: Speci men Type: BLOOD SPECIMEN Ordering Facility: [facility], [place] Address: [address] [place] [address] Performed By: #### 5 8410-2 #### [facility] CLIA [id number] [address] [place] [address] STATES [facility] Creatinine and Glomerular filtration rate.predicted panel (S/P/Bld) 85 mL/min/1.73m??? Normal >=60 [facility] Comment on above: Order Comment: Speci men Type: BLOOD SPECIMEN Ordering Facility: [facility], [place] Address: [address] [place] [address] Result Comment: Mateo mated Glomerular Filtration Rate (eGFR) is calculated using the 2020 CKD-EPI creatinine equation. This equation utilizes serum creatinine, sex, and age as parameters. The creatinine assay has traceable calibration to isotope dilution-mass spectrometry. Refer to KDIGO guidelines for clinical interpretation. In patients with unstable renal function, e.g. those with acute kidney injury, the eGFR may not accurately reflect actual GFR. Performed By: #### 5 8410-2 #### [facility] CLIA [id number] [address] [place] [address] [place] Glucose [Mass/Vol] 76 mg/dL Normal 74-99 [facility] Comment on above: Order Comment: Speci men Type: BLOOD SPECIMEN Ordering Facility: [facility], [place] Address: [address] [place] [address] Result Comment: The [place] Diabetes Association (ADA) provides guidance for cutoff values for fasting glucose and random glucose. The ADA defines fasting as no caloric intake for at least 8 hours. Fasting plasma glucose results between 100 to 125 mg/dL indicate increased risk for diabetes (prediabetes). Fasting plasma glucose results greater than or equal to 126 mg/dL meet the criteria for diagnosis of diabetes. In the absence of unequivocal hyperglycemia, results should be confirmed by repeat testing. In a patient with classic symptoms of hyperglycemia or hyperglycemic crisis, random plasma glucose results greater than or equal to 200 mg/dL meet the criteria for diagnosis of diabetes. Reference: Standards of Medical Care in Diabetes 2016, [place] Diabetes Association. Diabetes Care. 2016.39(Suppl 1). Performed By: #### 5 8410-2 #### [facility] CLIA [id number] [address] [place] [address] [place] Potassium [Moles/Vol] 4.2 mmol/L Normal 3.7-5.1 [facility] Comment on above: Order Comment: Yoav lujan Type: BLOOD SPECIMEN Ordering Facility: [facility], [place] Address: [address] [place] [address] Performed By: #### 5 8410-2 #### [facility] CLIA [id number] [address] [place] [address] [place] Sodium [Moles/Vol] 140 mmol/L Normal 136-144 [facility] Comment on above: Order Comment: Yoav lujan Type: BLOOD SPECIMEN Ordering Facility: [facility], [place] Address: [address] [place] [address] Performed By: #### 5 8410-2 #### [facility] CLIA [id number] [address] [place] [address] [place] Urea nitrogen [Mass/Vol] 15 mg/dL Normal 7-21 [facility] Comment on above: Order Comment: Yoav lujan Type: BLOOD SPECIMEN Ordering Facility: [facility], [place] Address: [address] [place] [address] Performed By: #### 5 8410-2 #### [facility] CLIA [id number] [address] [place] [address] [place] CBC panel Auto (Bld)on 10-22 Erythrocyte distribution width (RBC) [Ratio] 15.0 % 11.5 - 15.0 % [facility] Hematocrit (Bld) [Volume fraction] 42.1 % 36.0 - 46.0 % [facility] Hemoglobin (Bld) [Mass/Vol] 13.7 g/dL 11.5 - 15.5 g/dL [facility] Interpretation and review of laboratory results Normal [facility] MCH (RBC) [Entitic mass] 29.9 pg 26.0 - 34.0 pg [facility] MCHC (RBC) [Mass/Vol] 32.5 g/dL 30.5 - 36.0 g/dL [facility] MCV (RBC) [Entitic vol] 91.9 fL 80.0 - 100.0 fL [facility] Nucleated RBC (Bld) [#/Vol] NINF [facility] Platelet mean volume (Bld) [Entitic vol] 10.5 fL 9.0 - 12.7 fL [facility] Platelets (Bld) [#/Vol] 164 10*3/uL [facility] RBC (Bld) [#/Vol] 4.58 10*6/uL 3.90 - 5.2 0 m/uL [facility] WBC (Bld) [#/Vol] 7.20 10*3/uL [facility] Erythrocyte distribution width (RBC) [Ratio] 15.0 % Normal 11.5-15.0 [facility] Comment on above: Order Comment: Yoav lujan Type: BLOOD SPECIMEN Ordering Facility: [facility], [place] Address: [address] [place] [address] Performed By: #### 5 8410-2 #### [facility] CLIA [id number] [address] [place] [address] [place] Hematocrit (Bld) [Volume fraction] 42.1 % Normal 36.0-46.0 [facility] Comment on above: Order Comment: Yoav lujan Type: BLOOD SPECIMEN Ordering Facility: [facility], [place] Address: [address] [place] [address] Performed By: #### 5 8410-2 #### [facility] CLIA [id number] [address] [place] [address] [place] Hemoglobin (Bld) [Mass/Vol] 13.7 g/dL Normal 11.5-15.5 [facility] Comment on above: Order Comment: Speci men Type: BLOOD SPECIMEN Ordering Facility: [facility], [place] Address: [address] [place] [address] Performed By: #### 5 8410-2 #### [facility] CLIA [id number] [address] [place] [address] [place] MCH (RBC) [Entitic mass] 29.9 pg Normal 26.0-34.0 [facility] Comment on above: Order Comment: Speci men Type: BLOOD SPECIMEN Ordering Facility: [facility], [place] Address: [address] [place] [address] Performed By: #### 5 8410-2 #### [facility] CLIA [id number] [address] [place] [address] [place] MCHC (RBC) [Mass/Vol] 32.5 g/dL Normal 30.5-36.0 [facility] Comment on above: Order Comment: Speci men Type: BLOOD SPECIMEN Ordering Facility: [facility], [place] Address: [address] [place] [address] Performed By: #### 5 8410-2 #### [facility] CLIA [id number] [address] [place] [address] [place] C[place] MCV (RBC) [Entitic vol] 91.9 fL Normal 80.0-100.0 C [facility] Comment on above: Order Comment: Speci men Type: BLOOD SPECIMEN Ordering Facility: [facility] [place] Address: [address] [place] [address] Performed By: #### 5 8410-2 #### [facility] CLIA [id number] [address] [place] [address] [place] Nucleated RBC (Bld) [#/Vol] 10*3/uL Normal <0.01 [facility] Comment on above: Order Comment: Speci men Type: BLOOD SPECIMEN Ordering Facility: [facility], [place] Address: [address] [place] [address] Performed By: #### 5 8410-2 #### [facility] CLIA [id number] [address] [place] [address] [place] Platelet mean volume (Bld) [Entitic vol] 10.5 fL Normal 9.0-12.7 [facility] Comment on above: Order Comment: Speci men Type: BLOOD SPECIMEN Ordering Facility: [facility], [place] Address: [address] [place] [address] Performed By: #### 5 8410-2 #### [facility] CLIA [id number] [address] [place] [address] [place] Platelets (Bld) [#/Vol] 164 10*3/uL Normal 150-400 [facility] Comment on above: Order Comment: Speci men Type: BLOOD SPECIMEN Ordering Facility: [facility], [place] Address: [address] [place] [address] Performed By: #### 5 8410-2 #### [facility] CLIA [id number] [address] [place] [address] [place] RBC (Bld) [#/Vol] 4.58 10*6/uL Normal 3.90-5.20 [facility] Comment on above: Order Comment: Speci men Type: BLOOD SPECIMEN Ordering Facility: [facility], [place] Address: [address] [place] [address] Performed By: #### 5 8410-2 #### [facility] CLIA [id number] [address] [place] [address] [place] WBC (Bld) [#/Vol] 7.20 10*3/uL Normal 3.70-11.00 [facility] Comment on above: Order Comment: Speci men Type: BLOOD SPECIMEN Ordering Facility: [facility], [place] Address: [address] [place] [address] Performed By: #### 5 8410-2 #### [facility] CLIA [id number] [address] [place] [address] [place] Basic metabolic 2000 panelon 10-20-2023 Anion gap [Moles/Vol] 7 mmol/L Low 9 - 18 mmol/L [facility] Calcium [Mass/Vol] 8.4 mg/dL Low 8.5 - 10. 2 mg/dL [facility] Chloride [Moles/Vol] 101 mmol/L 97 - 10 5 mmol/L [facility] CO2 [Moles/Vol] 31 mmol/L High 22 - 30 mmol/L [facility] Creatinine [Mass/Vol] 0.91 mg/dL 0.58 - 0.96 mg/dL [facility] GFR/1.73 sq M.predicted among non-blacks MDRD (S/P/Bld) [Vol rate/Area] 65 mL/min/{1.73_m2} - PINF [facility] Comment on above: Estimated Glomerular Filtration Rate (eGFR) is calculated using the 2020 CKD-EPI creatinine equation. This equation utilizes serum creatinine, sex, and age as parameters. The creatinine assay has traceable calibration to isotope dilution-mass spectrometry. Refer to KDIGO guidelines for clinical interpretation. In patients with unstable renal function, e.g. those with acute kidney injury, the eGFR may not accurately reflect actual GFR. Glucose [Mass/Vol] 83 mg/dL 74 - 99 mg/dL [facility] Comment on above: The [place] Diabete s Association (ADA) provides guidance for cutoff values for fasting glucose and random glucose. The ADA defines fasting as no caloric intake for at least 8 hours. Fasting plasma glucose results between 100 to 125 mg/dL indicate increased risk for diabetes (prediabetes). Fasting plasma glucose results greater than or equal to 126 mg/dL meet the criteria for diagnosis of diabetes. In the absence of unequivocal hyperglycemia, results should be confirmed by repeat testing. In a patient with classic symptoms of hyperglycemia or hyperglycemic crisis, random plasma glucose results greater than or equal to 200 mg/dL meet the criteria for diagnosis of diabetes. Reference: Standards of Medical Care in Diabetes 2016, [place] Diabetes Association. Diabetes Care. 2016.39(Suppl 1). Interpretation and review of laboratory results Abnormal [facility] Potassium [Moles/Vol] 4.4 mmol/L 3.7 - 5.1 mmol/L [facility] Sodium [Moles/Vol] 139 mmol/L 136 - 144 mmol/L [facility] Urea nitrogen [Mass/Vol] 30 mg/dL High 7 - 21 mg/dL [facility] Anion gap [Moles/Vol] 7 mmol/L Low 9-18 [facility] Comment on above: Order Comment: Speci men Type: BLOOD SPECIMEN Ordering Facility: [facility], [place] Address: [address] [place] [address] Performed By: #### 5 8410-2 #### [facility] CLIA [id number] [address] [place] [address] [place] Calcium [Mass/Vol] 8.4 mg/dL Low 8.5-10.2 [facility] Comment on above: Order Comment: Speci men Type: BLOOD SPECIMEN Ordering Facility: [facility], [place] Address: [address] [place] [address] Performed By: #### 5 8410-2 #### [facility] CLIA [id number] [address] [place] [address] [place] Chloride [Moles/Vol] 101 mmol/L Normal 97-105 [facility] Comment on above: Order Comment: Speci men Type: BLOOD SPECIMEN Ordering Facility: [facility], [place] Address: [address] [place] [address] Performed By: #### 5 8410-2 #### [facility] CLIA [id number] [address] [place] [address] [place] CO2 [Moles/Vol] 31 mmol/L High 22-30 [facility] Comment on above: Order Comment: Speci men Type: BLOOD SPECIMEN Ordering Facility: [facility], [place] Address: [address] [place] [address] Performed By: #### 5 8410-2 #### [facility] CLIA [id number] [address] [place] [address] [place] Creatinine [Mass/Vol] 0.91 mg/dL Normal 0.58-0.96 [facility] Comment on above: Order Comment: Speci men Type: BLOOD SPECIMEN Ordering Facility: [facility] [place] Address: [address] [place] [address] Performed By: #### 5 8410-2 #### [facility] CLIA [id number] [address] [place] [address] [place] Creatinine and Glomerular filtration rate.predicted panel (S/P/Bld) 65 mL/min/1.73m??? Normal >=60 [facility] Comment on above: Order Comment: Yoav lujan Type: BLOOD SPECIMEN Ordering Facility: [facility], [place] Address: [address] [place] [address] Result Comment: Mateo mated Glomerular Filtration Rate (eGFR) is calculated using the 2020 CKD-EPI creatinine equation. This equation utilizes serum creatinine, sex, and age as parameters. The creatinine assay has traceable calibration to isotope dilution-mass spectrometry. Refer to KDIGO guidelines for clinical interpretation. In patients with unstable renal function, e.g. those with acute kidney injury, the eGFR may not accurately reflect actual GFR. Performed By: #### 5 8410-2 #### [facility] CLIA [id number] [address] [place] [address] [place] Glucose [Mass/Vol] 83 mg/dL Normal 74-99 [facility] Comment on above: Order Comment: Yoav lujan Type: BLOOD SPECIMEN Ordering Facility: [facility], [place] Address: [address] [place] [address] Result Comment: The [place] Diabetes Association (ADA) provides guidance for cutoff values for fasting glucose and random glucose. The ADA defines fasting as no caloric intake for at least 8 hours. Fasting plasma glucose results between 100 to 125 mg/dL indicate increased risk for diabetes (prediabetes). Fasting plasma glucose results greater than or equal to 126 mg/dL meet the criteria for diagnosis of diabetes. In the absence of unequivocal hyperglycemia, results should be confirmed by repeat testing. In a patient with classic symptoms of hyperglycemia or hyperglycemic crisis, random plasma glucose results greater than or equal to 200 mg/dL meet the criteria for diagnosis of diabetes. Reference: Standards of Medical Care in Diabetes 2016, [place] Diabetes [employer]. Diabetes Care. 2016.39(Suppl 1). Performed By: #### 5 8410-2 #### [facility] CLIA [id number] [address] [place] [address] [place] Potassium [Moles/Vol] 4.4 mmol/L Normal 3.7-5.1 [facility] Comment on above: Order Comment: Speci men Type: BLOOD SPECIMEN Ordering Facility: [facility], [place] Address: [address] [place] [address] Performed By: #### 5 8410-2 #### [facility] CLIA [id number] [address] [place] [address] [place] Sodium [Moles/Vol] 139 mmol/L Normal 136-144 [facility] Comment on above: Order Comment: Speci men Type: BLOOD SPECIMEN Ordering Facility: [facility], [place] Address: [address] [place] [address] Performed By: #### 5 8410-2 #### [facility] CLIA [id number] [address] [place] [address] [place] Urea nitrogen [Mass/Vol] 30 mg/dL High 7-21 [facility] Comment on above: Order Comment: Speci men Type: BLOOD SPECIMEN Ordering Facility: [facility] [place] Address: [address] [place] [address] Performed By: #### 5 8410-2 #### [facility] CLIA [id number] [address] [place] [address] [place] CBC panel Auto (Bld)on 10-19 Erythrocyte distribution width (RBC) [Ratio] 15.0 % 11.5 - 15.0 % [facility] Hematocrit (Bld) [Volume fraction] 42.7 % 36.0 - 46.0 % [facility] Hemoglobin (Bld) [Mass/Vol] 13.7 g/dL 11.5 - 15.5 g/dL [facility] Interpretation and review of laboratory results Abnormal [facility] MCH (RBC) [Entitic mass] 29.9 pg 26.0 - 34.0 pg [facility] MCHC (RBC) [Mass/Vol] 32.1 g/dL 30.5 - 36.0 g/dL [facility] MCV (RBC) [Entitic vol] 93.2 fL 80.0 - 100.0 fL [facility] Nucleated RBC (Bld) [#/Vol] NINF [facility] Platelet mean volume (Bld) [Entitic vol] 10.6 fL 9.0 - 12.7 fL [facility] Platelets (Bld) [#/Vol] 184 10*3/uL [facility] RBC (Bld) [#/Vol] 4.58 10*6/uL 3.90 - 5.2 0 m/uL [facility] WBC (Bld) [#/Vol] 11.11 10*3/uL [facility] Erythrocyte distribution width (RBC) [Ratio] 15.0 % Normal 11.5-15.0 [facility] Comment on above: Order Comment: Speci men Type: BLOOD SPECIMEN Ordering Facility: [facility] [place] Address: [address] [place] [address] Performed By: #### 5 8410-2 #### [facility] CLIA [id number] [address] Hematocrit (Bld) [Volume fraction] 42.7 % Normal 36.0-46.0 [facility] Comment on above: Order Comment: Speci men Type: BLOOD SPECIMEN Ordering Facility: [facility], [place] Address: [address] [place] [address] Performed By: #### 5 8410-2 #### [facility] CLIA [id number] [address] Hemoglobin (Bld) [Mass/Vol] 13.7 g/dL Normal 11.5-15.5 [facility] Comment on above: Order Comment: Speci men Type: BLOOD SPECIMEN Ordering Facility: [facility] [place] Address: [address] [place] [address] Performed By: #### 5 8410-2 #### [facility] CLIA [id number] [address] STATES [facility] MCH (RBC) [Entitic mass] 29.9 pg Normal 26.0-34.0 [facility] Comment on above: Order Comment: Speci men Type: BLOOD SPECIMEN Ordering Facility: [facility] [place] Address: [address] [place] [address] Performed By: #### 5 8410-2 #### [facility] CLIA [id number] 1000 [place], [place] [address] [place] [address] STATES OF CED MCHC (RBC) [Mass/Vol] 32.1 g/dL Normal 30.5-36.0 [facility] Comment on above: Order Comment: Speci men Type: BLOOD SPECIMEN Ordering Facility: [facility] [place] Address: [address] [place] [address] Performed By: #### 5 8410-2 #### [facility] CLIA [id number] [address] OF CED MCV (RBC) [Entitic vol] 93.2 fL Normal 80.0-100.0 C [facility] Comment on above: Order Comment: Speci men Type: BLOOD SPECIMEN Ordering Facility: [facility] [place] Address: [address] [place] [address] Performed By: #### 5 8410-2 #### [facility] CLIA [id number] [address] STATES OF CED Nucleated RBC (Bld) [#/Vol] 10*3/uL Normal <0.01 [facility] Comment on above: Order Comment: Speci men Type: BLOOD SPECIMEN Ordering Facility: [facility], [place] Address: [address] [place] [address] Performed By: #### 5 8410-2 #### [facility] CLIA [id number] [address] STATES OF [place]ED Platelet mean volume (Bld) [Entitic vol] 10.6 fL Normal 9.0-12.7 [facility] Comment on above: Order Comment: Speci men Type: BLOOD SPECIMEN Ordering Facility: [facility] [place] Address: [address] [place] [address] Performed By: #### 5 8410-2 #### [facility] CLIA [id number] [address] OF CED Platelets (Bld) [#/Vol] 184 10*3/uL Normal 150-400 [facility] Comment on above: Order Comment: Speci men Type: BLOOD SPECIMEN Ordering Facility: [facility] [place] Address: [address] [place] [address] Performed By: #### 5 8410-2 #### [facility] CLIA [id number] [address] OF [place]ED RBC (Bld) [#/Vol] 4.58 10*6/uL Normal 3.90-5.20 [facility] Comment on above: Order Comment: Speci men Type: BLOOD SPECIMEN Ordering Facility: [facility] [place] Address: [address] [place] [address] Performed By: #### 5 8410-2 #### [facility] CLIA [id number] [address] STATES OF [place]ED WBC (Bld) [#/Vol] 11.11 10*3/uL High 3.70-11.00 [facility] Comment on above: Order Comment: Speci men Type: BLOOD SPECIMEN Ordering Facility: [facility] [place] Address: [address] [place] [address] Performed By: #### 5 8410-2 #### [facility] CLIA [id number] [address] [place] [address] [place] Basic metabolic 2000 panelon 10-16-2023 Anion gap [Moles/Vol] 9 mmol/L 9 - 18 mmol/L [facility] Calcium [Mass/Vol] 9.1 mg/dL 8.5 - 10. 2 mg/dL [facility] Chloride [Moles/Vol] 101 mmol/L 97 - 10 5 mmol/L [facility] CO2 [Moles/Vol] 29 mmol/L 22 - 30 mmol/L [facility] Creatinine [Mass/Vol] 0.66 mg/dL 0.58 - 0.96 mg/dL [facility] GFR/1.73 sq M.predicted among non-blacks MDRD (S/P/Bld) [Vol rate/Area] 90 mL/min/{1.73_m2} - PINF [facility] Comment on above: Estimated Glomerular Filtration Rate (eGFR) is calculated using the 2020 CKD-EPI creatinine equation. This equation utilizes serum creatinine, sex, and age as parameters. The creatinine assay has traceable calibration to isotope dilution-mass spectrometry. Refer to KDIGO guidelines for clinical interpretation. In patients with unstable renal function, e.g. those with acute kidney injury, the eGFR may not accurately reflect actual GFR. Glucose [Mass/Vol] 91 mg/dL 74 - 99 mg/dL [facility] Comment on above: The [place] Diabete s Association (ADA) provides guidance for cutoff values for fasting glucose and random glucose. The ADA defines fasting as no caloric intake for at least 8 hours. Fasting plasma glucose results between 100 to 125 mg/dL indicate increased risk for diabetes (prediabetes). Fasting plasma glucose results greater than or equal to 126 mg/dL meet the criteria for diagnosis of diabetes. In the absence of unequivocal hyperglycemia, results should be confirmed by repeat testing. In a patient with classic symptoms of hyperglycemia or hyperglycemic crisis, random plasma glucose results greater than or equal to 200 mg/dL meet the criteria for diagnosis of diabetes. Reference: Standards of Medical Care in Diabetes 2016, [place] Diabetes Association. Diabetes Care. 2016.39(Suppl 1). Interpretation and review of laboratory results Abnormal [facility] Potassium [Moles/Vol] 4.7 mmol/L 3.7 - 5.1 mmol/L [facility] Sodium [Moles/Vol] 139 mmol/L 136 - 144 mmol/L [facility] Urea nitrogen [Mass/Vol] 29 mg/dL High 7 - 21 mg/dL [facility] Anion gap [Moles/Vol] 9 mmol/L Normal 9-18 [facility] Comment on above: Order Comment: Yoav lujan Type: BLOOD SPECIMEN Ordering Facility: [facility], [place] Address: [address] [place] [address] Performed By: #### 2 4321-2 #### [facility] CLIA [id number] [address] [place] [address] [place] Calcium [Mass/Vol] 9.1 mg/dL Normal 8.5-10.2 [facility] Comment on above: Order Comment: Yoav lujan Type: BLOOD SPECIMEN Ordering Facility: [facility], [place] Address: [address] [place] [address] Performed By: #### 2 4321-2 #### [facility] CLIA [id number] [address] [place] [address] [place] Chloride [Moles/Vol] 101 mmol/L Normal 97-105 [facility] Comment on above: Order Comment: Speci men Type: BLOOD SPECIMEN Ordering Facility: [facility], [place] Address: [address] [place] [address] Performed By: #### 2 4321-2 #### [facility] CLIA [id number] [address] [place] [address] [place] CO2 [Moles/Vol] 29 mmol/L Normal 22-30 [facility] Comment on above: Order Comment: Speci men Type: BLOOD SPECIMEN Ordering Facility: [facility], [place] Address: [address] [place] [address] Performed By: #### 2 4321-2 #### [facility] CLIA [id number] [address] [place] [address] [place] Creatinine [Mass/Vol] 0.66 mg/dL Normal 0.58-0.96 [facility] Comment on above: Order Comment: Speci men Type: BLOOD SPECIMEN Ordering Facility: [facility], [place] Address: [address] [place] [address] Performed By: #### 2 4321-2 #### [facility] CLIA [id number] [address] Creatinine and Glomerular filtration rate.predicted panel (S/P/Bld) 90 mL/min/1.73m??? Normal >=60 [facility] Comment on above: Order Comment: Speci men Type: BLOOD SPECIMEN Ordering Facility: [facility], [place] Address: [address] [place] [address] Result Comment: Mateo mated Glomerular Filtration Rate (eGFR) is calculated using the 2020 CKD-EPI creatinine equation. This equation utilizes serum creatinine, sex, and age as parameters. The creatinine assay has traceable calibration to isotope dilution-mass spectrometry. Refer to KDIGO guidelines for clinical interpretation. In patients with unstable renal function, e.g. those with acute kidney injury, the eGFR may not accurately reflect actual GFR. Performed By: #### 2 4321-2 #### [facility] CLIA [id number] [address] [place] [address] [place] Glucose [Mass/Vol] 91 mg/dL Normal 74-99 [facility] Comment on above: Order Comment: Yoav lujan Type: BLOOD SPECIMEN Ordering Facility: [facility], [place] Address: [address] [place] [address] Result Comment: The [place] Diabetes Association (ADA) provides guidance for cutoff values for fasting glucose and random glucose. The ADA defines fasting as no caloric intake for at least 8 hours. Fasting plasma glucose results between 100 to 125 mg/dL indicate increased risk for diabetes (prediabetes). Fasting plasma glucose results greater than or equal to 126 mg/dL meet the criteria for diagnosis of diabetes. In the absence of unequivocal hyperglycemia, results should be confirmed by repeat testing. In a patient with classic symptoms of hyperglycemia or hyperglycemic crisis, random plasma glucose results greater than or equal to 200 mg/dL meet the criteria for diagnosis of diabetes. Reference: Standards of Medical Care in Diabetes 2016, [place] Diabetes Association. Diabetes Care. 2016.39(Suppl 1). Performed By: #### 2 4321-2 #### [facility] CLIA [id number] [address] [place] [address] [place] Potassium [Moles/Vol] 4.7 mmol/L Normal 3.7-5.1 [facility] Comment on above: Order Comment: Yoav lujan Type: BLOOD SPECIMEN Ordering Facility: [facility], [place] Address: [address] [place] [address] Performed By: #### 2 4321-2 #### [facility] CLIA [id number] [address] [place] [address] [place] Sodium [Moles/Vol] 139 mmol/L Normal 136-144 [facility] Comment on above: Order Comment: Yoav lujan Type: BLOOD SPECIMEN Ordering Facility: [facility], [place] Address: [address] [place] [address] Performed By: #### 2 4321-2 #### [facility] CLIA [id number] [address] [place] [address] [place] Urea nitrogen [Mass/Vol] 29 mg/dL High 7-21 [facility] Comment on above: Order Comment: Yoav lujan Type: BLOOD SPECIMEN Ordering Facility: [facility], [place] Address: [address] [place] [address] Performed By: #### 2 4321-2 #### [facility] CLIA [id number] [address] [place] [address] [place] CBC panel Auto (Bld)on 10-15 Erythrocyte distribution width (RBC) [Ratio] 14.4 % 11.5 - 15.0 % [facility] Hematocrit (Bld) [Volume fraction] 46.6 % High 36.0 - 46.0 % [facility] Hemoglobin (Bld) [Mass/Vol] 15.3 g/dL 11.5 - 15.5 g/dL [facility] Interpretation and review of laboratory results Abnormal [facility] MCH (RBC) [Entitic mass] 30.1 pg 26.0 - 34.0 pg [facility] MCHC (RBC) [Mass/Vol] 32.8 g/dL 30.5 - 36.0 g/dL [facility] MCV (RBC) [Entitic vol] 91.6 fL 80.0 - 100.0 fL [facility] Nucleated RBC (Bld) [#/Vol] NINF [facility] Platelet mean volume (Bld) [Entitic vol] 10.8 fL 9.0 - 12.7 fL [facility] Platelets (Bld) [#/Vol] 219 10*3/uL [facility] RBC (Bld) [#/Vol] 5.09 10*6/uL 3.90 - 5.2 0 m/uL [facility] WBC (Bld) [#/Vol] 12.59 10*3/uL [facility] Erythrocyte distribution width (RBC) [Ratio] 14.4 % Normal 11.5-15.0 [facility] Comment on above: Order Comment: Speci men Type: BLOOD SPECIMEN Ordering Facility: [facility], [place] Address: [address] [place] [address] Performed By: #### 5 8410-2 #### [facility] CLIA [id number] [address] [facility] Hematocrit (Bld) [Volume fraction] 46.6 % High 36.0-46.0 [facility] Comment on above: Order Comment: Speci men Type: BLOOD SPECIMEN Ordering Facility: [facility], [place] Address: [address] [place] [address] Performed By: #### 5 8410-2 #### [facility] CLIA [id number] [address] [place] Hemoglobin (Bld) [Mass/Vol] 15.3 g/dL Normal 11.5-15.5 [facility] Comment on above: Order Comment: Speci men Type: BLOOD SPECIMEN Ordering Facility: [facility], [place] Address: [address] [place] [address] Performed By: #### 5 8410-2 #### [facility] CLIA [id number] [address] [place] [address] [place] MCH (RBC) [Entitic mass] 30.1 pg Normal 26.0-34.0 [facility] Comment on above: Order Comment: Speci men Type: BLOOD SPECIMEN Ordering Facility: [facility], [place] Address: [address] [place] [address] Performed By: #### 5 8410-2 #### [facility] CLIA [id number] [address] [place] MCHC (RBC) [Mass/Vol] 32.8 g/dL Normal 30.5-36.0 [facility] Comment on above: Order Comment: Speci men Type: BLOOD SPECIMEN Ordering Facility: [facility], [place] Address: [address] [place] [address] Performed By: #### 5 8410-2 #### [facility] CLIA [id number] [address] [place] MCV (RBC) [Entitic vol] 91.6 fL Normal 80.0-100.0 C [facility] Comment on above: Order Comment: Speci men Type: BLOOD SPECIMEN Ordering Facility: [facility], [place] Address: [address] [place] [address] Performed By: #### 5 8410-2 #### [facility] CLIA [id number] [address] [place] Nucleated RBC (Bld) [#/Vol] 10*3/uL Normal <0.01 [facility] Comment on above: Order Comment: Speci men Type: BLOOD SPECIMEN Ordering Facility: [facility], [place] Address: [address] [place] [address] Performed By: #### 5 8410-2 #### [facility] CLIA [id number] [address] [place] [address] [place] Platelet mean volume (Bld) [Entitic vol] 10.8 fL Normal 9.0-12.7 [facility] Comment on above: Order Comment: Speci men Type: BLOOD SPECIMEN Ordering Facility: [facility], [place] Address: [address] [place] [address] Performed By: #### 5 8410-2 #### [facility] CLIA [id number] [address] [place] [address] [place] Platelets (Bld) [#/Vol] 219 10*3/uL Normal 150-400 [facility] Comment on above: Order Comment: Speci men Type: BLOOD SPECIMEN Ordering Facility: [facility], [place] Address: [address] [place] [address] Performed By: #### 5 8410-2 #### [facility] CLIA [id number] [address] [place] [address] [place] RBC (Bld) [#/Vol] 5.09 10*6/uL Normal 3.90-5.20 [facility] Comment on above: Order Comment: Speci men Type: BLOOD SPECIMEN Ordering Facility: [facility] [place] Address: [address] [place] [address] Performed By: #### 5 8410-2 #### [facility] CLIA [id number] [address] [place] [address] [place] WBC (Bld) [#/Vol] 12.59 10*3/uL High 3.70-11.00 [facility] Comment on above: Order Comment: Speci men Type: BLOOD SPECIMEN Ordering Facility: [facility], [place] Address: [address] [place] [address] Performed By: #### 5 8410-2 #### [facility] CLIA [id number] [address] [place] 36on 10-13-2023 36 Spoke with Wesley about Citlaly. Citlaly was admitted to [facility] last Friday10/07/23. She says that she presented to the ED with weakness and increased confusion. After evaluation, she was positive for COVID and she says that she has since been weaned off oxygen and had received Remdesevir and steroids. She does note that since august, she has noticed her mom having more weakness, falls, and episodes of confusions. At times, she will stare blankly and not answer questions. She has done things like drinking salad dressing from the refrigerator and eating food with her hands at a restaurant. She fell outside her home on Friday and a good congregational found her and assisted her. She is weak and unable to get her self up when she falls. She inquired about Arimidex which was started on 09/02/23. Advised that she may discuss that with the team at the hospital and would be low risk to temporarily stop and evaluate if that was their plan. However, that would be something to discuss with the inpatient team as they may be making other adjustments. She states that the doctor in the hospital told them that she may have had COVID symptoms up to 30 days prior to this severe episode. Wesley is unsure if worsening confusion could be from COVID, oncology treatment, or worsening Parkinson's. She said that she did have some brain fog from the Taxol, but episodes of confusion and weakness became worse mid August. They were very bad when first admitted to the hospital, where she would start blankly and could only really answer that her name was Citlaly and could say that Wesley was her daughter. Otherwise was confused to place, time, and situation. That has improved since being on Remdesevir and the steroids. Recommended that she reach out to Citlaly's neurologist with an update. She is unsure whether she will be discharged to rehab or to home with private pay assistance. She does have an alert necklace for at home, but she is concerned that it is so much for her dad to take on in caring for her mom with the confusion. It can be very overwhelming. She helps a lot but lives 20 minutes away. She does check in frequently, but can't be there all of the time. Cancelled infusion treatment scheduled for tomorrow. Wesley to reach out to our office on discharge from [facility]. Will plan for Dr. Escobedo to reassess patient's functional and cognitive status prior to further infusion treatments. Normal [facility] 36on 10-06-2023 36 Follow up call made to pt., nano barrett - LMOM. Will continue to monitor and follow. Lisa Watters, MPA, RDN LD CDCES Normal [facility] CBC W Auto Differential pane l (Bld)Ordered By: Annie Call on 09-23-2023 Basophils (Bld) [#/Vol] 0.0 10*3/uL 0.0 - 0.2 10*3/uL [facility] Basophils/100 WBC (Bld) 0.5 % 0.0 - 2.0 % [facility] Eosinophils (Bld) [#/Vol] 0.1 10*3/uL 0.0 - 0.5 10*3/uL [facility] Eosinophils/100 WBC (Bld) 2.2 % 0.0 - 6.0 % [facility] Erythrocyte distribution width (RBC) [Ratio] 13.9 % 11.5 - 15.0 % [facility] Hematocrit (Bld) [Volume fraction] 43.9 % 35.0 - 47.0 % [facility] Hemoglobin (Bld) [Mass/Vol] 14.2 g/dL 11.7 - 16.0 g/dL [facility] Immature granulocytes (Bld) [#/Vol] 0.0 10*3/uL NINF - 0.1 10*3/uL [facility] [email or web address] Immature granulocytes/100 WBC (Bld) 0.4 % 0.0 - 2.0 % [facility] Interpretation and review of laboratory results Abnormal [facility] Lymphocytes (Bld) [#/Vol] 0.9 10*3/uL Low 1.0 - 4.3 10*3/uL [facility] [email or web address] Lymphocytes/100 WBC (Bld) 16.8 % 15.0 - 45.0 % [facility] MCH (RBC) [Entitic mass] 29.8 pg 26.0 - 34.0 pg [facility] MCHC (RBC) [Mass/Vol] 32.3 % 30.5 - 36.0 % [facility] MCV (RBC) [Entitic vol] 92.2 fL 77.0 - 99.0 fL [facility] Monocytes (Bld) [#/Vol] 0.4 10*3/uL 0.0 - 0.9 10*3/uL [facility] Monocytes/100 WBC (Bld) 6.8 % 5.0 - 13.0 % [facility] Neutrophils (Bld) [#/Vol] 4.0 10*3/uL 1.8 - 7.5 10*3/uL [facility] Neutrophils/100 WBC (Bld) 73.3 % 38.0 - 82.0 % [facility] Nucleated RBC/100 WBC (Bld) [Ratio] 0.0 % [facility] Platelet mean volume (Bld) [Entitic vol] 9.8 fL 9.0 - 12.7 fL [facility] Comment on above: MPV is a calculated measurement using platelet volume ratio Platelets (Bld) [#/Vol] 205 10*3/uL 140 - 440 10*3/uL [facility] RBC (Bld) [#/Vol] 4.76 10*6/uL 3.80 - 5.2 0 10*6/uL [facility] WBC (Bld) [#/Vol] 5.5 10*3/uL 3.6 - 10.7 10*3/uL [facility] CBC WITH AUTO DIFFERENTIALon 09-23-2023 Basophils (Bld) [#/Vol] 0.0 10*3/uL Normal 0.0-0.2 [facility] Comment on above: Performed By: #### L [id number] ####Sports Director: GRISELDA ROSALES ([phone])[facility] ([facility])[address] [place] [address] Basophils/100 WBC (Bld) 0.5 % Normal 0.0-2.0 [facility] Comment on above: Performed By: #### L [id number] ####Sports Director: GRISELDA ROSALES ([id number])[facility] [place] [address] Eosinophils (Bld) [#/Vol] 0.1 10*3/uL Normal 0.0-0.5 [facility] Comment on above: Performed By: #### L [id number] ####Sports Director: GRISELDA ROSALES ([phone])[facility] [place] [address] Eosinophils/100 WBC (Bld) 2.2 % Normal 0.0-6.0 [facility] Comment on above: Performed By: #### L [id number] ####Sports Director: GRISELDA HAYSADALGISA ([phone])[facility] ([facility])[address] [place] [address] Erythrocyte distribution width (RBC) [Ratio] 13.9 % Normal 11.5-15.0 [facility] Comment on above: Performed By: #### L [id number] ####Sports Director: GRISELDA HAYSADALGISA ([id number])[facility] ([facility])[address] [place] [address] Hematocrit (Bld) [Volume fraction] 43.9 % Normal 35.0-47.0 [facility] Comment on above: Performed By: #### L [id number] ####Sports Director: GRISELDA HAYSADALGISA ([id number])[facility] ([facility])[address] [place] [address] Hemoglobin (Bld) [Mass/Vol] 14.2 g/dL Normal 11.7-16.0 [facility] Comment on above: Performed By: #### L [id number] ####Sports Director: GRISELDA ROSALES ([phone])[facility] [place] [address] IMMATURE GRANS % 0.4 % Normal 0.0-2.0 [facility] Comment on above: Performed By: #### L [id number] ####Sports Director: GRISELDA HAYSADALGISA ([phone])[facility] ([facility])[address] [place] [address] IMMATURE GRANS ABSOLUTE 0.0 10*3/uL Normal <0.1 [facility] Comment on above: Performed By: #### L [id number] ####Sports Director: GRISELDA SIMMONSTigistADALGISA ([id number])[facility] [place] [address] Lymphocytes (Bld) [#/Vol] 0.9 10*3/uL Low 1.0-4.3 [facility] Comment on above: Performed By: #### L [id number] ####Sports Director: GRISELDA CONNIE ([phone])[facility] [place] [address] Lymphocytes/100 WBC (Bld) 16.8 % Normal 15.0-45.0 [facility] Comment on above: Performed By: #### L [id number] ####Sports Director: GRISELDA SIMMONSJAKE ([id number])[facility] ([facility])[address] [place] [address] MCH (RBC) [Entitic mass] 29.8 pg Normal 26.0-34.0 [facility] Comment on above: Performed By: #### L [id number] ####Sports Director: GRISELDA CONNIE ([id number])[facility] ([facility])[address] [place] [address] MCHC 32.3 % Normal 30.5-36.0 [facility] Comment on above: Performed By: #### L [id number] ####Sports Director: GRISELDA HAYSADALGISA ([id number])[facility] [place] [address] MCV (RBC) [Entitic vol] 92.2 fL Normal 77.0-99.0 [facility] Comment on above: Performed By: #### L [id number] ####Sports Director: GRISELDA HAYSADALGISA ([id number])[facility] [place] [address] Monocytes (Bld) [#/Vol] 0.4 10*3/uL Normal 0.0-0.9 [facility] Comment on above: Performed By: #### L [id number] ####Sports Director: GRISELDA ROSALES ([id number])[facility] ([facility])[address] [place] [id number] [place] [address] Monocytes/100 WBC (Bld) 6.8 % Normal 5.0-13.0 [facility] Comment on above: Performed By: #### L [id number] ####Sports Director: GRISELDA HAYSADALGISA ([phone])[facility] ([facility])[address] [place] [address] NEUTROPHILS ABSOLUTE 4.0 10*3/uL Normal 1.8-7.5 [facility] Comment on above: Performed By: #### L [id number] ####Sports Director: GRISELDA HAYSADALGISA ([id number])[facility] ([facility])[address] [place] [address] Neutrophils/100 WBC (Bld) 73.3 % Normal 38.0-82.0 [facility] Comment on above: Performed By: #### L [id number] ####Sports Director: GRISELDA HAYSADALGISA ([id number])[facility] [place] [address] NRBC 0.0 /100 WBCs Normal 0.0-2.0 [facility] Comment on above: Performed By: #### L [id number] ####Sports Director: GRISELDA HAYSADALGISA ([id number])[facility] [place] [address] Platelet mean volume (Bld) [Entitic vol] 9.8 fL Normal 9.0-12.7 [facility] Comment on above: Result Comment: MPV is a calculated measurement using platelet volume ratio Performed By: #### L [id number] ####Sports Director: GRISELDA ROSALES ([id number])[facility] ([facility])[address] [place] [address] Platelets (Bld) [#/Vol] 205 10*3/uL Normal 140-440 [facility] Comment on above: Performed By: #### L [id number] ####Sports Director: GRISELDA ROSALES ([id number])[facility] [place] [address] RBC (Bld) [#/Vol] 4.76 10*6/uL Normal 3.80-5.20 [facility] Comment on above: Performed By: #### L [id number] ####Sports Director: GRISELDA ROSALES ([id number])[facility] [place] [address] WBC (Bld) [#/Vol] 5.5 10*3/uL Normal 3.6-10.7 [facility] Comment on above: Performed By: #### L [id number] ####Sports Director: GRISELDA ROSALES ([id number])[facility] ([facility])[address] [place] [address] Comprehensive metabolic 2000 panelon 09-23-2023 Albumin [Mass/Vol] 3.4 g/dL 3.3 - 5.5 g/dL [facility] ALP [Catalytic activity/Vol] 83 U/L 42 - 141 U/L [facility] ALT [Catalytic activity/Vol] 20 U/L 10 - 47 U/L [facility] Anion gap [Moles/Vol] 9.00 mmol/L -4.00 - 12.00 mmol/L [facility] AST [Catalytic activity/Vol] 29 U/L 11 - 38 U/L [facility] Bilirubin [Mass/Vol] 0.7 mg/dL 0.2 - 1 .6 mg/dL [facility] Calcium [Mass/Vol] 9.3 mg/dL 8.0 - 10. 3 mg/dL [facility] Chloride [Moles/Vol] 104 mmol/L [facility] CO2 [Moles/Vol] 27 mmol/L [facility] lt GFR/1.73 sq M.predicted MDRD (S/P/Bld) [Vol rate/Area] 76.0 mL/min/{1.73_m2} - PINF [facility] Glucose [Mass/Vol] 133 mg/dL High 73 - 118 mg/dL [facility] Interpretation and review of laboratory results Abnormal [facility] Potassium [Moles/Vol] 3.8 mmol/L [facility] Protein [Mass/Vol] 6.5 g/dL 6.4 - 8.1 g/dL [facility] Sodium [Moles/Vol] 140 mmol/L [facility] Urea nitrogen [Mass/Vol] 19 mg/dL 7 - 22 mg/dL [facility] Urea nitrogen/Creatinine [Mass ratio] 0.8 mg/dL 0.6 - 1.2 mg/dL [facility] Progress Noteon 09-23-2023 Progress Note Patient arrived for Q 3 week Trazimera infusion. Per patient family patient had unwitnessed fall this week. Patient did not have walker with her and fell,[facility]. Encouraged patient family if noticed patient seems more of balanced or mentation worsens to reach out to PCP for possible UACNS. Patient currently denies urinary symptoms. PIV inserted in R hand, blood for CBC and CMP obtained and sen tot lab. ECHO 09-18-23= EF of 60%. Infusion complete. Vitals obtained. PIV d/c'd angio cath intact. Patient ambulatory with family prior to discharge. Normal [facility] US Heart TransthoracicOrdere d By: Sachin Watkins on 09-18-2023 Aortic Sinus Valsalva 3.3 cm [facility] [facility] Work Phone: Aortic Sinus Valsalva Index 1.66 cm/m2 [facility] Work Phone: AR Max Velocity PISA 3.5 m/s [facility] Work Phone: AR PHT 456.7 ms [facility] Work Phone: Ascending Aorta 3.5 cm [facility] Work Phone: Ascending Aorta Index 1.76 cm/m2 [facility] Work Phone: AV Area by Peak Velocity 2.4 cm2 [facility] Work Phone: AV Area by VTI 2.7 cm2 [facility] Work Phone: AV Mean Gradient 4 mmHg [facility] Work Phone: AV Mean Velocity 0.9 m/s [facility] Work Phone: AV Peak Gradient 7 mmHg [facility] Work Phone: AV Peak Velocity 1.3 m/s [facility] Work Phone: AV Velocity Ratio 0.77 [facility] Work Phone: AV VTI 22.8 cm [facility] Work Phone: BHARTI/BSA Peak Velocity 1.2 cm2/m2 [facility] Work Phone: BHARTI/BSA VTI 1.4 cm2/m2 [facility] Work Phone: E/E' Lateral 7.43 [facility] Work Phone: E/E' Ratio (Averaged) 8.05 [facility] Work Phone: E/E' Septal 8.67 [facility] Work Phone: EF BP 60 % 55 - 100 % [facility] Work Phone: Fractional Shortening 2D 24 % 28 - 44 % [facility] Work Phone: Global Longitudinal Strain -17.3 % [facility] Work Phone: Interpretation and review of laboratory results Abnormal [facility] Work Phone: IVC Diameter 2.1 cm [facility] Work Phone: IVSd 1.1 cm Abnormal 0.6 - 0.9 cm [facility] Work Phone: LA Volume 2C 79 mL Abnormal 22 - 52 mL [facility] Work Phone: LA Volume 4C 65 mL Abnormal 22 - 52 mL [facility] Work Phone: LA Volume A/L 78 mL [facility] Work Phone: LA Volume Index 2C 40 mL/m2 Abnormal 16 - 34 mL/m2 [facility] Work Phone: LA Volume Index 4C 33 mL/m2 16 - 34 mL/m2 [facility] Work Phone: LA Volume Index A/L 39 mL/m2 16 - 34 mL/m2 [facility] Work Phone: LV E' Lateral Velocity 7 cm/s [facility] Work Phone: LV E' Septal Velocity 6 cm/s [facility] Work Phone: LV EDV A2C 87 mL [facility] Work Phone: LV EDV A4C 66 mL [facility] Work Phone: LV EDV BP 77 mL 56 - 104 mL [facility] Work Phone: LV EDV Index A2C 44 mL/m2 [facility] Work Phone: LV EDV Index A4C 33 mL/m2 [facility] Work Phone: LV EDV Index BP 39 mL/m2 [facility] Work Phone: LV Ejection Fraction A2C 58 % [facility] Work Phone: LV Ejection Fraction A4C 60 % [facility] Work Phone: LV ESV A2C 37 mL [facility] Work Phone: LV ESV A4C 26 mL [facility] Work Phone: LV ESV BP 31 mL 19 - 49 mL [facility] Work Phone: LV ESV Index A2C 19 mL/m2 [facility] Work Phone: LV ESV Index A4C 13 mL/m2 [facility] Work Phone: LV ESV Index BP 16 mL/m2 [facility] Work Phone: LV Mass 2D 96.9 g 67 - 162 g [facility] Work Phone: LV Mass 2D Index 48.7 g/m2 43 - 95 g/m2 [facility] [email or web address] Work Phone: LV RWT Ratio 0.38 [facility] [email or web address] Work Phone: LVIDd 3.7 cm Abnormal 3.9 - 5.3 cm [facility] Work Phone: LVIDd Index 1.86 cm/m2 [facility] [email or web address] Work Phone: LVIDs 2.8 cm [facility] [email or web address] Work Phone: LVIDs Index 1.41 cm/m2 [facility] [email or web address] Work Phone: LVOT Area 3.1 cm2 [facility] [email or web address] Work Phone: LVOT Cardiac Output 5.4 liter/minute [facility] [email or web address] Work Phone: LVOT Diameter 2.0 cm [facility] Work Phone: LVOT Mean Gradient 2 mmHg [facility] [email or web address] Work Phone: LVOT Peak Gradient 4 mmHg [facility] [email or web address] Work Phone: LVOT Peak Velocity 1.0 m/s [facility] [email or web address] Work Phone: LVOT Stroke Volume Index 30.1 mL/m2 [facility] [email or web address] Work Phone: LVOT SV 60.0 ml [facility] [email or web address] Work Phone: LVOT VTI 19.1 cm [facility] [email or web address] Work Phone: LVOT:AV VTI Index 0.84 [facility] Work Phone: LVPWd 0.7 cm 0.6 - 0.9 cm [facility] [email or web address] Work Phone: MV A Velocity 0.78 m/s [facility] Work Phone: MV E Velocity 0.52 m/s [facility] Work Phone: MV E Wave Deceleration Time 275.7 ms [facility] [employer] Phone: MV E/A 0.67 [facility] Phone: RV Free Wall Peak S' 15 cm/s [facility] Phone: Sinotubular Junction 2.8 cm [facility] Phone: TAPSE 2.0 cm 1.7 cm [facility] Phone: [facility] Phone: Heart Transthoracicon Left Ventricle: Left ventricle size is normal. Normal wall thickness. Normal left ventricular systolic function. EF by 2D Simpsons Biplane is 60%. Global longitudinal strain is normal with a value of -17.3%. Normal wall motion. Normal diastolic function. Normal left ventricular filling pressure. Tissue Doppler velocity is reduced. MV E/e' lateral velocity is 7.43. MV E/e' septal velocity is 8.67. Right Ventricle: Right ventricle size is normal. Normal systolic function. Aortic Valve: Mild (1+) regurgitation. Tricuspid Valve: Trace regurgitation. Pulmonic Valve: Trace regurgitation. Left Atrium: Left atrium size is normal. No significant valvular abnormalities. Left Ventricle Left ventricle size is normal. Normal wall thickness. Normal left ventricular systolic function. EF by 2D Simpsons Biplane is 60%. Global longitudinal strain is normal with a value of -17.3%. Normal wall motion. Normal diastolic function. Normal left ventricular filling pressure. Tissue Doppler velocity is reduced. MV E/e' lateral velocity is 7.43. MV E/e' septal velocity is 8.67. Right Ventricle Right ventricle size is normal. Normal systolic function. Left Atrium Left atrium size is normal. Right Atrium Right atrium size is normal. IVC/SVC IVC diameter is normal and decreases greater than 50% during inspiration; therefore the estimated right atrial pressure is normal (~3 mmHg). Mitral Valve Valve structure is normal. No regurgitation. No stenosis noted. Tricuspid Valve Valve structure is normal. Trace regurgitation. Aortic Valve Trileaflet. No cusp thickening. No cusp calcification. Mild (1+) regurgitation. No stenosis. Pulmonic Valve Valve structure is normal. Trace regurgitation. Ascending Aorta Normal sized sinuses of Valsalva and ascending aorta. Pericardium No pericardial effusion. Septum No interatrial shunt visualized on color Doppler. Study Details Image quality: fair. Additional technique includes myocardial strain. Blood pressure: 128/80 mmHg. No contrast was given. Echo Additional Conclusions No significant valvular abnormalities. CV [facility] Hospital Encounteron 024 Hospital Encounter [id number] Madiha Perales 1945 F Date Provider Department Center 09/12/2023 [id number] [facility] RAD ON None Family History Problem Relation Age of Onset Breast cancer Mother Lung cancer Father Colon cancer Paternal Grandfather Family Status - Relation Status Age at Mother Father Paternal Grandfather Level of Service:[id number] [place] OFFICE/OUTPT VISIT,PROCEDURE ONLY Reason for Visit and Comments: Follow-up [646852] Normal [facility] Nursing Noteon 09-12-2023 Nursing Note Here with using walker for follow up.Appetite good states she just doesn't drink enough water. Energy normal for her rests frequently. States skin is doing well and continues to moisturize with aloe and coconut oil. Recent bone density test done. Has echo coming up and continues on Trazimera every 3 weeks. Normal [facility] Progress Noteon 09-12-2023 Progress Note RADIATION ONCOLOGY FOLLOW UP PATIENT: Madiha Perales DATE OF SERVICE: 09/12/2023 : 1945 AGE: 78 y.o. PRIMARY SITE AND HISTOPATHOLOGY: Left breast, grade 3 invasive ductal carcinoma, ER positive, WV positive, HER2 positive. STAGE: cT1b N0 M0, IA; pT1c N0 M0, IA HISTORY OF PRESENT ILLNESS: This is a 78-year-old female who was noted to have an abnormal screening mammogram of the upper outer quadrant of the left breast on 11/27/2022. The area was asymptomatic and nonpalpable. Diagnostic views and ultrasound were performed on 01/21/2023. This identified a 0.9 x 0.9 x 1 cm irregular mass in the left breast. Biopsy was performed at [facility] on 01/28/2023. This revealed grade 3 invasive ductal carcinoma measuring at least 8 mm in dimension. ER positive at 100%, WV positive at 70% and HER2 positive at 3+. The patient underwent lumpectomy and sentinel node removal on 02/18/2023. Pathology revealed grade 3 invasive ductal carcinoma measuring 1.9 cm. There was focal DCIS of high-grade. Extensive lymphovascular invasion. Margins were negative for invasive and in situ component at greater than 2 mm. 6 nodes were removed, 5 sentinel and 1 nonsentinel. All were negative. Pathologically staged T1CN0. We were consulted to discuss postoperative radiation therapy. The patient was seen by medical oncology and started weekly Taxol on 04/01/2023 for planned 12 cycles. Trazimera was started with cycle 2. Taxol was discontinued after the eighth cycle on 05/27/2023 due to symptoms. Trazimera is scheduled to continue for 1 year. Arimidex started 09/02/2023. TREATMENT PLAN: Hypofractionated daily radiation to the left breast. INTERVAL SINCE RADIATION: 1 month ? 07/14/23 - 08/01/23: 40.05/40.05 Gy to the L Breast in 15 fractions of 2.67 Gy using the 3D technique with 10 MV. ? 08/04/23 - 08/12/23: 10.00/10.00 Gy to the L Brst Surg Site in 5 fractions of 2.00 Gy using the Isodose C/Daily IGRT technique with 6 &10 MV. INTERVAL HISTORY: The patient returns with her today for follow-up. They feel that things are going well from the healing of with the radiation. They continue to moisturize in the area with aloe and coconut oil. Appetite is good. She is getting her nutrition and but her feels she is not getting enough fluids and. Energy levels okay. She rests as needed. No respiratory or cardiac complaints. No swelling in the extremities. She continues on the Trazimera. PAST MEDICAL HISTORY: Past Medical History: Diagnosis Date Allergic rhinitis Anxiety Back pain Lower back pain Breast calcifications on mammogram Dementia (HCC) Depression Eczema H/O colonoscopy Hemorrhoid Hx of rosacea Lower extremity edema MARCY (obstructive sleep apnea) The patient wears CPAP Parkinson disease Stroke (HCC) 2009 Torn meniscus Uterine cancer (CMS/HCC) (HCC) 2005 PAST SURGICAL HISTORY: Past Surgical History: Procedure Laterality Date BREAST LUMPECTOMY 02/18/2023 Left breast Lumpectomy and sentinel lymph node biopsy BREAST LUMPECTOMY Left 2013 Benign left breast lumpectomy CATARACT EXTRACTION, BILATERAL 2012 Bilateral cataract surgery HYSTERECTOMY 2006 Total Hysterectomy KNEE ARTHROSCOPY Right ALLERGIES: Allergies as of 09/12/2023 - Reviewed 09/12/2023 Allergen Reaction Noted Alendronate Unknown and Other 05/07/2010 Cephalexin Unknown 05/07/2010 Dye [gadolinium] 03/06/2023 Escitalopram Other and Unknown 10/24/2022 Iodine 03/06/2023 Nickel Unknown 05/07/2010 Penicillins Unknown 05/12/2010 Pregabalin Unknown 05/07/2010 Salicylates Other and Unknown 05/07/2010 Iodinated contrast media Hives 06/14/2010 MEDICATIONS: Current Outpatient Medications Medication Sig Dispense Refill anastrozole (Arimidex) 1 MG tablet Take 1 tablet (1 mg total) by mouth daily. Swallow whole with a drink of water. 30 tablet 5 CALCIUM CARB-CHOLECALCIFEROL PO Take by mouth. carbidopa-levodopa (Sinemet) 25-100 MG tablet every 8 hours. DULoxetine (Cymbalta) [address] capsule Take 1 capsule (20 mg) by mouth once daily. loratadine (Claritin) 10 MG tablet Take 10 mg by mouth daily. memantine (Namenda) 10 MG tablet Take 10 mg by mouth daily. MULTIPLE VITAMIN PO Take 1 capsule by mouth in the morning. VITAMIN D PO Take by mouth. 2 gummies a day amoxicillin (Amoxil) 500 MG tablet Take 500 mg by mouth in the morning and 500 mg before bedtime. Unknown dose, unknown strength. dexAMETHasone (Decadron) 4 MG tablet Take 1 tablet (4 mg) by mouth in the morning and 1 tablet (4 mg) in the evening. Take with meals. Do all this for 1 day. Take 6 hours and 12 hours prior to first cycle of chemotherapy.. 2 tablet 0 loratadine (Claritin) 10 MG tablet Take by mouth daily. loratadine (Claritin) 10 MG tablet Take 1 tablet by mouth in the morning. psyllium (Metamucil) 28.3 % powder Take 3.4 g of fiber by mouth daily. No current facili (more content not included)... Normal [facility] DEXA BONE DENSITY AXIAL [facility] PRATIKVijay 09-05-2023 DEXA BONE DENSITY AXIAL SKELETON Patient Name: MADIHA PERALES : 1945 Exam Date/Time: 09/05/2023 10:04 Procedure: DEXA BONE DENSITY AXIAL SKELETON Ordering Provider: ESCOBEDO TERESA Reason For Exam: screening for osteoporosis DEXA BONE DENSITOMETRY: CLINICAL INDICATION: Asymptomatic post-menopausal status COMPARISON: None TECHNIQUE: Quantitative bone mineral densitometry of the hip and lumbar spine was performed with a dual energy x-ray observed absorptiometry device - [employer] Horizon W. Regions of interest were obtained through the left proximal femur and compared to the normal value of the young adult. Regions of interest were also obtained through the lumbar vertebrae with an average value determined and compared with the young adult. The measured bone density minus the bone density of the young normal reference divided by the reference standard deviation is expressed as the T score. Using the same formula adjusting the reference density and standard deviation for age and race determines the Z score. According to World Health Organization criteria: T-score of -1.0 or higher is normal. T-score between -1.0 and -2.5 is low bone density or osteopenia. T-score of -2.5 or lower is abnormally low, compatible with osteoporosis. T-score of -2.5 or less plus fragility fracture indicates severe osteoporosis. FINDINGS: Spine: L1-L4 Density 1.04 g/cm2. T-score: -0.1 Z-score: 2.4 Comparison from prior examination:N/A Hip: Femoral neck Density: 0.78 g/cm2. T-score: -0.6 Z-score: 1.6 Hip: Total hip Density: 0.98 g/cm2. T-score: 0.3 Z-score: 2.2 Comparison from prior examination:N/A IMPRESSION: Normal bone density FRACTURE RISK: The estimated 10 year risk for a major osteoporosis-related fracture is 8.9 % and risk for hip fracture is 1.2 % (FRAX web version 3.08). The current National Osteoporosis Foundation Guide recommends pharmacologic treatment for patients with FRAX 10-year risk scores of > 20% for major osteoporotic fracture or > 3% for hip fracture, to reduce their fracture risk. FOLLOW-UP RECOMMENDATIONS: Patients with osteoporosis or or at high risk for fracture should have follow-up bone density tests. For Medicare patients, routine testing is allowed every 2 years. Patients who have low bone mass (T score -2.0 to -2.49), who are currently on treatment for low bone mass, or having risk factors for accelerated bone loss (glucocorticoids, aromatase inhibitors, etc.), consider repeat DXA in 1-2 years. Patients with osteopenia and no risk factors may consider follow-up every 3-5 years. Report Dictated on Electronically Signed By: Brayden Green MD Electronically Signed Date/Time: 09/05/2023 3:32 PM EDT [facility] DXA Skeletal system.axial Vi ews for bone densityon 09-05-2023 Normal bone density FRACTURE RISK: The estimated 10 year risk for a major osteoporosis-related fracture is 8.9 % and risk for hip fracture is 1.2 % (FRAX web version 3.08). The current National Osteoporosis Foundation Guide recommends pharmacologic treatment for patients with FRAX 10-year risk scores of > 20% for major osteoporotic fracture or > 3% for hip fracture, to reduce their fracture risk. FOLLOW-UP RECOMMENDATIONS: Patients with osteoporosis or or at high risk for fracture should have follow-up bone density tests. For Medicare patients, routine testing is allowed every 2 years. Patients who have low bone mass (T score -2.0 to -2.49), who are currently on treatment for low bone mass, or having risk factors for accelerated bone loss (glucocorticoids, aromatase inhibitors, etc.), consider repeat DXA in 1-2 years. Patients with osteopenia and no risk factors may consider follow-up every 3-5 years. Report Dictated on Electronically Signed By: Brayden Green MD Electronically Signed Date/Time: 09/05/2023 3:32 PM T [facility] 1945 [id number] Exam Date/Time: 09/05/2023 10:04 Procedure: DEXA BONE DENSITY AXIAL SKELETON Ordering Provider: ESCOBEDO TERESA Reason For Exam: screening for osteoporosis DEXA BONE DENSITOMETRY: CLINICAL INDICATION: Asymptomatic post-menopausal status COMPARISON: None TECHNIQUE: Quantitative bone mineral densitometry of the hip and lumbar spine was performed with a dual energy x-ray observed absorptiometry device - [employer] Horizon W. Regions of interest were obtained through the left proximal femur and compared to the normal value of the young adult. Regions of interest were also obtained through the lumbar vertebrae with an average value determined and compared with the young adult. The measured bone density minus the bone density of the young normal reference divided by the reference standard deviation is expressed as the T score. Using the same formula adjusting the reference density and standard deviation for age and race determines the Z score. According to World Health Organization criteria: T-score of -1.0 or higher is normal. T-score between -1.0 and -2.5 is low bone density or osteopenia. T-score of -2.5 or lower is abnormally low, compatible with osteoporosis. T-score of -2.5 or less plus fragility fracture indicates severe osteoporosis. FINDINGS: Spine: L1-L4 Density 1.04 g/cm2. T-score: -0.1 Z-score: 2.4 Comparison from prior examination:N/A Hip: Femoral neck Density: 0.78 g/cm2. T-score: -0.6 Z-score: 1.6 Hip: Total hip Density: 0.98 g/cm2. T-score: 0.3 Z-score: 2.2 Comparison from prior examination:N/A [facility] Brayden Green MD - 09/05/2023 Patient Name: [facility]AD[facility] 1945 [id number] Exam Date/Time: 09/05/2023 10:04 Procedure: DEXA BONE DENSITY AXIAL SKELETON Ordering Provider: ESCOBEDO TERESA Reason For Exam: screening for osteoporosis DEXA BONE DENSITOMETRY: CLINICAL INDICATION: Asymptomatic post-menopausal status COMPARISON: None TECHNIQUE: Quantitative bone mineral densitometry of the hip and lumbar spine was performed with a dual energy x-ray observed absorptiometry device - [employer] W. Regions of interest were obtained through the left proximal femur and compared to the normal value of the young adult. Regions of interest were also obtained through the lumbar vertebrae with an average value determined and compared with the young adult. The measured bone density minus the bone density of the young normal reference divided by the reference standard deviation is expressed as the T score. Using the same formula adjusting the reference density and standard deviation for age and race determines the Z score. According to World Health Organization criteria: T-score of -1.0 or higher is normal. T-score between -1.0 and -2.5 is low bone density or osteopenia. T-score of -2.5 or lower is abnormally low, compatible with osteoporosis. T-score of -2.5 or less plus fragility fracture indicates severe osteoporosis. FINDINGS: Spine: L1-L4 Density 1.04 g/cm2. T-score: -0.1 Z-score: 2.4 Comparison from prior examination:N/A Hip: Femoral neck Density: 0.78 g/cm2. T-score: -0.6 Z-score: 1.6 Hip: Total hip Density: 0.98 g/cm2. T-score: 0.3 Z-score: 2.2 Comparison from prior examination:N/A IMPRESSION: Normal bone density FRACTURE RISK: The estimated 10 year risk for a major osteoporosis-related fracture is 8.9 % and risk for hip fracture is 1.2 % (FRAX web version 3.08). The current National Osteoporosis Foundation Guide recommends pharmacologic treatment for patients with FRAX 10-year risk scores of > 20% for major osteoporotic fracture or > 3% for hip fracture, to reduce their fracture risk. FOLLOW-UP RECOMMENDATIONS: Patients with osteoporosis or or at high risk for fracture should have follow-up bone density tests. For Medicare patients, routine testing is allowed every 2 years. Patients who have low bone mass (T score -2.0 to -2.49), who are currently on treatment for low bone mass, or having risk factors for accelerated bone loss (glucocorticoids, aromatase inhibitors, etc.), consider repeat DXA in 1-2 years. Patients with osteopenia and no risk factors may consider follow-up every 3-5 years. Report Dictated on Electronically Signed By: Brayden Green MD Electronically Signed Date/Time: 09/05/2023 3:32 PM EDT [employer] Study observation (narrative) [facility] DXA Skeletal system.axial Vi ews for bone densityOrdered By: Brayden Green on 09-05-2023 [employer] Work Phone: CBC W Auto Differential pane l (Bld)on 09-02-2023 Basophils (Bld) [#/Vol] 0.0 10*3/uL 0.0 - 0.2 10*3/uL [facility] Basophils (Bld) [#/Vol] 0 10*3/uL 0.0 - 0.2 10*3/uL [facility] Basophils/100 WBC (Bld) 0.6 % 0.0 - 2.0 % [facility] Eosinophils (Bld) [#/Vol] 0.2 10*3/uL 0.0 - 0.5 10*3/uL [facility] Eosinophils/100 WBC (Bld) 3.1 % 0.0 - 6.0 % [facility] Erythrocyte distribution width (RBC) [Ratio] 13.8 % 11.5 - 15.0 % [facility] Hematocrit (Bld) [Volume fraction] 42.0 % 35.0 - 47.0 % [facility] Hematocrit (Bld) [Volume fraction] 42 % 35.0 - 47.0 % [facility] Hemoglobin (Bld) [Mass/Vol] 13.7 g/dL 11.7 - 16.0 g/dL [facility] Immature granulocytes (Bld) [#/Vol] 0.0 10*3/uL NINF - 0.1 10*3/uL [facility] Immature granulocytes (Bld) [#/Vol] 0 10*3/uL NINF - 0.1 10*3/uL [facility] Immature granulocytes/100 WBC (Bld) 0.4 % 0.0 - 2.0 % [facility] Interpretation and review of laboratory results Abnormal [facility] Lymphocytes (Bld) [#/Vol] 0.7 10*3/uL Low 1.0 - 4.3 10*3/uL [facility] Lymphocytes/100 WBC (Bld) 14.3 % Low 15.0 - 45.0 % [facility] MCH (RBC) [Entitic mass] 30.4 pg 26.0 - 34.0 pg [facility] MCHC (RBC) [Mass/Vol] 32.6 % 30.5 - 36.0 % [facility] MCV (RBC) [Entitic vol] 93.3 fL 77.0 - 99.0 fL [facility] [email or web address] Monocytes (Bld) [#/Vol] 0.4 10*3/uL 0.0 - 0.9 10*3/uL [facility] Monocytes/100 WBC (Bld) 8.4 % 5.0 - 13.0 % [facility] Neutrophils (Bld) [#/Vol] 3.7 10*3/uL 1.8 - 7.5 10*3/uL [facility] Neutrophils/100 WBC (Bld) 73.2 % 38.0 - 82.0 % [facility] Nucleated RBC/100 WBC (Bld) [Ratio] 0.0 % [facility] Nucleated RBC/100 WBC (Bld) [Ratio] 0 % [facility] Platelet mean volume (Bld) [Entitic vol] 9.2 fL 9.0 - 12.7 fL [facility] Comment on above: MPV is a calculated measurement using platelet volume ratio Platelets (Bld) [#/Vol] 188 10*3/uL 140 - 440 10*3/uL [facility] RBC (Bld) [#/Vol] 4.50 10*6/uL 3.80 - 5.2 0 10*6/uL [facility] RBC (Bld) [#/Vol] 4.5 10*6/uL 3.80 - 5.2 0 10*6/uL [facility] WBC (Bld) [#/Vol] 5.1 10*3/uL 3.6 - 10.7 10*3/uL [facility] CBC WITH AUTO DIFFERENTIALon 09-02-2023 Basophils (Bld) [#/Vol] 0.0 10*3/uL Normal 0.0-0.2 [facility] Comment on above: Performed By: #### L [id number] #### Sports Director: GRISELDA ROSALES ([id number]) [facility] ([facility]) [address] [place] [address] [place] Basophils/100 WBC (Bld) 0.6 % Normal 0.0-2.0 [facility] Comment on above: Performed By: #### L [id number] #### Sports Director: GRISELDA ROSALES ([id number]) [facility] ([facility]) [address] [place] [address] [place] Eosinophils (Bld) [#/Vol] 0.2 10*3/uL Normal 0.0-0.5 [facility] Comment on above: Performed By: #### L [id number] #### Sports Director: GRISELDA ROSALES ([id number]) [facility] ([facility]) [address] [place] [address] Eosinophils/100 WBC (Bld) 3.1 % Normal 0.0-6.0 [facility] Comment on above: Performed By: #### L [id number] #### Sports Director: GRISELDA ROSALES ([id number]) [facility] ([facility]) [address] [place] [address] Erythrocyte distribution width (RBC) [Ratio] 13.8 % Normal 11.5-15.0 [facility] Comment on above: Performed By: #### L [id number] #### Sports Director: GRISELDAJAZMYN ROSALES ([id number]) [facility] ([facility]) [address] [place] [address] Hematocrit (Bld) [Volume fraction] 42.0 % Normal 35.0-47.0 [facility] Comment on above: Performed By: #### L [id number] #### Sports Director: GRISELDA CONNIE ([id number]) [facility] ([facility]) [address] [place] [address] Hemoglobin (Bld) [Mass/Vol] 13.7 g/dL Normal 11.7-16.0 [facility] Comment on above: Performed By: #### L [id number] #### Sports Director: GRISELDAJAZMYN ROSALES ([id number]) [facility] ([facility]) [address] [place] [address] IMMATURE GRANS % 0.4 % Normal 0.0-2.0 [facility] Comment on above: Performed By: #### L [id number] #### Sports Director: GRISELDA CONNIE ([id number]) [facility] ([facility]) [address] [place] [address] IMMATURE GRANS ABSOLUTE 0.0 10*3/uL Normal <0.1 [facility] Comment on above: Performed By: #### L [id number] #### Sports Director: GRISELDA ROSALES ([id number]) [facility] ([facility]) [address] [place] [address] Lymphocytes (Bld) [#/Vol] 0.7 10*3/uL Low 1.0-4.3 [facility] Comment on above: Performed By: #### L [id number] #### Sports Director: GRISELDA ROSALES ([id number]) [facility] ([facility]) [address] [place] [address] Lymphocytes/100 WBC (Bld) 14.3 % Low 15.0-45.0 [facility] Comment on above: Performed By: #### L [id number] #### Sports Director: GRISELDA ROSALES ([id number]) [facility] ([facility]) [address] [place] [address] MCH (RBC) [Entitic mass] 30.4 pg Normal 26.0-34.0 [facility] Comment on above: Performed By: #### L [id number] #### Sports Director: GRISELDA ROSALES ([id number]) [facility] ([facility]) [address] [place] [address] MCHC 32.6 % Normal 30.5-36.0 [facility] Comment on above: Performed By: #### L [id number] #### Sports Director: GRISELDA ROSALES ([id number]) [facility] ([facility]) [address] [place] [address] MCV (RBC) [Entitic vol] 93.3 fL Normal 77.0-99.0 [facility] Comment on above: Performed By: #### L [id number] #### Sports Director: GRISELDA ROSALES ([id number]) [facility] ([facility]) [address] [place] [address] Monocytes (Bld) [#/Vol] 0.4 10*3/uL Normal 0.0-0.9 [facility] Comment on above: Performed By: #### L [id number] #### Sports Director: GRISELDA ROSALES ([id number]) [facility] ([facility]) [address] [place] [address] Monocytes/100 WBC (Bld) 8.4 % Normal 5.0-13.0 [facility] Comment on above: Performed By: #### L [id number] #### Sports Director: GRISELDA ROSALES ([id number]) [facility] ([facility]) [address] [place] [address] NEUTROPHILS ABSOLUTE 3.7 10*3/uL Normal 1.8-7.5 [facility] Comment on above: Performed By: #### L [id number] #### Sports Director: GRISELDA ROSALES ([id number]) [facility] ([facility]) [address] [place] [address] Neutrophils/100 WBC (Bld) 73.2 % Normal 38.0-82.0 [facility] Comment on above: Performed By: #### L [id number] #### Sports Director: GRISELDA ROSALES ([id number]) [facility] ([facility]) [address] [place] [address] NRBC 0.0 /100 WBCs Normal 0.0-2.0 [facility] Comment on above: Performed By: #### L [id number] #### Sports Director: GRISELDA ROSALES ([id number]) [facility] ([facility]) [address] [place] [address] Platelet mean volume (Bld) [Entitic vol] 9.2 fL Normal 9.0-12.7 [facility] Comment on above: Result Comment: MPV is a calculated measurement using platelet volume ratio Performed By: #### L [id number] #### Sports Director: GRISELDA ROSALES ([id number]) [facility] ([facility]) [address] [place] [address] [place] Platelets (Bld) [#/Vol] 188 10*3/uL Normal 140-440 [facility] Comment on above: Performed By: #### L [id number] #### Sports Director: GRISELDA SIMMONSTigistADALGISA ([id number]) [facility] ([facility]) [address] [place] [address] RBC (Bld) [#/Vol] 4.50 10*6/uL Normal 3.80-5.20 [facility] Comment on above: Performed By: #### L [id number] #### Sports Director: GRISELDA SIMMNOSTigistADALGISA ([id number]) [facility] ([facility]) [address] [place] [address] WBC (Bld) [#/Vol] 5.1 10*3/uL Normal 3.6-10.7 [facility] Comment on above: Performed By: #### L [id number] #### Sports Director: GRISELDA ROSALES ([id number]) [facility] ([facility]) [address] [place] [address] Comprehensive metabolic 2000 panelOrdered By: Annie Montalvo on 09-02-2023 Albumin [Mass/Vol] 3.3 g/dL 3.3 - 5.5 g/dL [facility] ALP [Catalytic activity/Vol] 75 U/L 42 - 141 U/L [facility] ALT [Catalytic activity/Vol] 16 U/L 10 - 47 U/L [facility] Anion gap [Moles/Vol] 8.00 mmol/L -4.00 - 12.00 mmol/L [facility] Anion gap [Moles/Vol] 8 mmol/L -4.00 - 12.00 mmol/L [facility] AST [Catalytic activity/Vol] 29 U/L 11 - 38 U/L [facility] Bilirubin [Mass/Vol] 0.6 mg/dL 0.2 - 1 .6 mg/dL [facility] Calcium [Mass/Vol] 9.3 mg/dL 8.0 - 10. 3 mg/dL [facility] Chloride [Moles/Vol] 108 mmol/L [facility] CO2 [Moles/Vol] 27 mmol/L [facility] lth GFR/1.73 sq M.predicted MDRD (S/P/Bld) [Vol rate/Area] 76.0 mL/min/{1.73_m2} [facility] GFR/1.73 sq M.predicted MDRD (S/P/Bld) [Vol rate/Area] 76 mL/min/{1.73_m2} [facility] Glucose [Mass/Vol] 132 mg/dL High 73 - 118 mg/dL [facility] Interpretation and review of laboratory results Abnormal [facility] Potassium [Moles/Vol] 3.8 mmol/L [facility] Protein [Mass/Vol] 6.4 g/dL 6.4 - 8.1 g/dL [facility] Sodium [Moles/Vol] 143 mmol/L [facility] Urea nitrogen [Mass/Vol] 15 mg/dL 7 - 22 mg/dL [facility] Urea nitrogen/Creatinine [Mass ratio] 0.8 mg/dL 0.6 - 1.2 mg/dL [facility] Office Visiton 09-02-2023 Follow-up visit [id number] Madiha Perales 1945 F Date Provider Department Center 09/02/2023 [id number] None Family History Problem Relation Age of Onset Breast cancer Mother Lung cancer Father Colon cancer Paternal Grandfather Family Status - Relation Status Age at Mother Father Paternal Grandfather Level of Service:67287 [place] OFFICE/OUTPATIENT ESTABLISHED MOD MDM 30 MIN Reason for Visit and Comments: Follow-up [925158] Normal [facility] Progress Noteon 09-02-2023 Progress Note Patient arrived for Q 3 week Kate from [facility] with physician. PIV inserted on 3rd attempt , first attempt by second RN, blood for CBC and CMP obtained and sent to lab. ECHO from 06-26-23 shows EF of 62%, next ECHO scheduled for this month. Patient had recent fall, hitting head, denies LOC. Patient is ambulatory with Rolator today however cognition issues cause her to forget it sometimes.Patient also has decreased PO water intake. Tips on adequate hydration provided to adult daughter. CBC, and CMP reviewed. Patient to start Arimidex today, DEXA scan ordered and being entered. Infusion complete. Vitals obtained. PIV d/c'd angio cath intact. Patient ambulatory upon discharge. Normal [facility] Progress Note Hematology/Oncology Office Visit Oncology History: 1) stage 1A left breast cancer, invasive ductal carcinoma grade 3. ER+ WV+ HER2+. cT1b N0 M0; pT1c N0 M0, diagnosed 01/28/23. - Patient is a 78 yo F who presented with an abnormal screening mammogram of the upper outer quadrant of the left breast on 11/27/22. Diagnostic imaging and ultrasound were performed on 01/21/2023: a 0.9 x 0.9 x 1 cm irregular mass in the left breast. Biopsy was performed at [facility] on 01/28/2023 confirming grade 3 invasive ductal carcinoma ER positive 100%, WV positive 70% and HER2 positive at 3+. The patient underwent lumpectomy and sentinel node removal on 02/18/[address] Choi at [facility]: pathology revealed grade 3 invasive ductal carcinoma measuring 1.9 cm. There was focal DCIS and extensive lymphovascular invasion. Margins were negative for invasive and in situ component at greater than 2 mm. 6 axillary nodes were removed: 5 sentinel and 1 nonsentinel. All were negative.Ban harrison staged T1CN0. - she was referred to [facility] for medical and radiation oncology. Her case was reviewed at our tumor board and adjuvant chemotherapy, radiation, and AI therapy were recommended. She started weekly taxol and herceptin on 04/01/23. She required a 25% reduction in Taxol for cycle 3 due to neutropenia. She completed 8 of the 12 planned cycles of weekly Taxol, but the Taxol was stopped early due to poor tolerance. Herceptin every 3 weeks continued. - radiation started 07/14/23 and she completed it 08/12/23 - Arimidex started 09/02/23 HPI: Madiha Perales is a 78 y.o. female who comes in today for her next cycle of Herceptin and to start Arimidex. She continues to tolerate Herceptin well overall. She tolerated radiation therapy well. She is accompanied by her daughter today. No chest pain or shortness of breath. No falls at home. PO intake improved. No fevers or chills. No swelling. No headaches. Recall, patient has Parkinson's and had a stroke a few years ago, but is generally doing well at home. She is active the majority of the day and continues to take care of the house. She does have some mild expressive aphasia as well as short term memory loss. Past Medical History: Diagnosis Date Allergic rhinitis Anxiety Back pain Lower back pain Breast calcifications on mammogram Dementia ([facility]) Depression Eczema H/O colonoscopy Hemorrhoid Hx of rosacea Lower extremity edema MARCY (obstructive sleep apnea) The patient wears CPAP Parkinson disease Stroke ([facility]) 2009 Torn meniscus Uterine cancer ([facility]) ([facility]) 2005 Past Surgical History: Procedure Laterality Date BREAST LUMPECTOMY 02/18/2023 Left breast Lumpectomy and sentinel lymph node biopsy BREAST LUMPECTOMY Left 2013 Benign left breast lumpectomy CATARACT EXTRACTION, BILATERAL 2012 Bilateral cataract surgery HYSTERECTOMY 2006 Total Hysterectomy KNEE ARTHROSCOPY Right Patient Active Problem List Diagnosis Date Noted Memory loss 03/18/2023 Pigmented skin lesion suspicious for malignant neoplasm 03/18/2023 Malignant neoplasm of upper-outer quadrant of left breast in female, estrogen receptor positive ([facility]) ([facility]) 03/18/2023 Edema of both lower extremities 02/05/2023 Parkinsonism 02/05/2023 Allergic reaction to bee sting 10/29/2022 Allergic rhinitis 10/29/2022 Eczema 10/29/2022 Eczema 10/29/2022 Elevated TSH 10/29/2022 External hemorrhoids 10/29/2022 Hair loss 10/29/2022 Low back pain 10/29/2022 Menopausal state 10/29/2022 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HCC) 10/29/2022 Mixed anxiety depressive disorder 10/29/2022 Obesity (BMI 30.0-34.9) 10/29/2022 Obstructive sleep apnea syndrome 10/29/2022 Falling 10/29/2022 Seborrheic keratosis 10/29/2022 Rosacea, acne 10/15/2022 Hemangioma of skin and subcutaneous tissue 04/24/2016 Breast calcifications on mammogram 07/24/2013 Cerebrovascular accident (CVA) ([facility]) 06/23/2009 Social History Tobacco Use Smoking status: Never Smokeless tobacco: Never Vaping Use Vaping Use: Never used Substance Use Topics Alcohol use: Not Currently Drug use: Never Family History Problem Relation Name Age of Onset Breast cancer Mother Lung cancer Father Colon cancer Paternal Grandfather Allergies Allergen Reactions Alendronate Unknown and Other Cephalexin Unknown Dye [Gadolinium] Escitalopram Other and Unknown Iodine Other reaction(s): Hives and/or rash Nickel Unknown Penicillins Unknown Other reaction(s): Intolerance-unknown Patient had multiple doses of IV Zosyn in May 2023 and tolerated without issue Pregabalin Unknown Salicylates Other and Unknown D/t HX of CVA Iodinated Contrast Media Hives Hives x 5 locations, redness of right eye. Current Outpatient Medications Medication Sig Dispense Refill loratadine (Claritin) 10 MG tablet Take by mouth daily. loratadine (Claritin) 10 MG tablet Take 1 tablet by mouth in the (more content not included)... [facility] 81on 08-12-2023 81 RADIATION ONCOLOGY TREATMENT SUMMARY PATIENT: Madiha Perales DATE OF SERVICE: 08/12/2023 : 1945 AGE: 79 y.o. PRIMARY SITE AND HISTOPATHOLOGY: Left breast, grade 3 invasive ductal carcinoma, ER positive, WV positive, HER2 positive. STAGE: cT1b N0 M0, IA; pT1c N0 M0, IA HISTORY OF PRESENT ILLNESS: This is a 78-year-old female who was noted to have an abnormal screening mammogram of the upper outer quadrant of the left breast on 11/27/2022. The area was asymptomatic and nonpalpable. Diagnostic views and ultrasound were performed on 01/21/2023. This identified a 0.9 x 0.9 x 1 cm irregular mass in the left breast. Biopsy was performed at [facility] on 01/28/2023. This revealed grade 3 invasive ductal carcinoma measuring at least 8 mm in dimension. ER positive at 100%, WV positive at 70% and HER2 positive at 3+. The patient underwent lumpectomy and sentinel node removal on 02/18/2023. Pathology revealed grade 3 invasive ductal carcinoma measuring 1.9 cm. There was focal DCIS of high-grade. Extensive lymphovascular invasion. Margins were negative for invasive and in situ component at greater than 2 mm. 6 nodes were removed, 5 sentinel and 1 nonsentinel. All were negative. Pathologically staged T1CN0. We were consulted to discuss postoperative radiation therapy. The patient was seen by medical oncology and started weekly Taxol on 04/01/2023 for planned 12 cycles. Trazimera was started with cycle 2. Taxol was discontinued after the eighth cycle on 05/27/2023 due to symptoms. Trazimera is scheduled to continue for 1 year. TREATMENT PLAN: Hypofractionated daily radiation to the left breast. INTERVAL SINCE RADIATION: 07/14/2023 - 08/12/2023 (29 days) ? 07/14/23 - 08/01/23: 40.05/40.05 Gy to the L Breast in 15 fractions of 2.67 Gy using the 3D technique with 10 MV. ? 08/04/23 - 08/12/23: 10.00/10.00 Gy to the L Brst Surg Site in 5 fractions of 2.00 Gy using the Isodose C/Daily IGRT technique with 6 &10 MV. STATUS OF PATIENT AT THE FINISH OF THE TREATMENT: TolerStable appetite. Mild erythema in treatment region. DISPOSITION: Discharge instructions on skin care and activity were given. She was instructed to follow-up with her other physicians to whose care she is being discharged back. A 1 month follow-up appointment was made. Vicki Diego MD [facility] Department of Radiation Oncology is an Accredited Facility of the [employer] ([employer]). This document was completed utilizing speech recognition software. Grammatical errors, random word insertions, pronoun errors, and incomplete sentences are an occasional consequence of this system due to software limitations, ambient noise, and hardware issues. Any formal questions or concerns about the content, text or information contained within the body of this dictation should be directly addressed to the provider for clarification. Normal [facility] CBC W Auto Differential pane l (Bld)Ordered By: Radha Rain on 08-12-2023 Basophils (Bld) [#/Vol] 0.0 10*3/uL 0.0 - 0.2 10*3/uL [facility] Basophils (Bld) [#/Vol] 0 10*3/uL 0.0 - 0.2 10*3/uL [facility] Basophils/100 WBC (Bld) 0.4 % 0.0 - 2.0 % [facility] Eosinophils (Bld) [#/Vol] 0.1 10*3/uL 0.0 - 0.5 10*3/uL [facility] Eosinophils/100 WBC (Bld) 2.1 % 1.0 - 6.0 % [facility] Erythrocyte distribution width (RBC) [Ratio] 14.0 % 11.5 - 14.5 % [facility] Erythrocyte distribution width (RBC) [Ratio] 14 % 11.5 - 14.5 % [facility] Hematocrit (Bld) [Volume fraction] 41.2 % 35.0 - 47.0 % [facility] Hemoglobin (Bld) [Mass/Vol] 13.6 g/dL 11.7 - 16.0 g/dL [facility] Immature granulocytes (Bld) [#/Vol] 0.0 10*3/uL NINF - 0.0 10*3/uL [facility] Immature granulocytes (Bld) [#/Vol] 0 10*3/uL NINF - 0.0 10*3/uL [facility] Immature granulocytes/100 WBC (Bld) 0.6 % High NINF - 0.0 % [facility] Interpretation and review of laboratory results Abnormal [facility] Lymphocytes (Bld) [#/Vol] 0.9 10*3/uL Low 1.0 - 4.3 10*3/uL [facility] Lymphocytes/100 WBC (Bld) 12.6 % Low 20.0 - 40.0 % [facility] MCH (RBC) [Entitic mass] 30.7 pg 26.0 - 34.0 pg [facility] MCHC (RBC) [Mass/Vol] 33.0 % 32.0 - 36.0 % [facility] MCHC (RBC) [Mass/Vol] 33 % 32.0 - 36.0 % [facility] MCV (RBC) [Entitic vol] 93.0 fL 80.0 - 98.0 fL [facility] MCV (RBC) [Entitic vol] 93 fL 80.0 - 98.0 fL [facility] Monocytes (Bld) [#/Vol] 0.5 10*3/uL 0.0 - 0.8 10*3/uL [facility] Monocytes/100 WBC (Bld) 6.7 % 2.0 - 10.0 % [facility] Neutrophils (Bld) [#/Vol] 5.2 10*3/uL 1.8 - 7.0 10*3/uL [facility] Neutrophils/100 WBC (Bld) 77.6 % 40.0 - 80.0 % [facility] Platelet mean volume (Bld) [Entitic vol] 9.9 fL 7.4 - 12.4 fL [facility] Comment on above: MPV is a calculated measurement using platelet volume ratio Platelets (Bld) [#/Vol] 224 10*3/uL 140 - 440 10*3/uL [facility] RBC (Bld) [#/Vol] 4.43 10*6/uL 3.8 - 5.20 10*6/uL [facility] WBC (Bld) [#/Vol] 6.7 10*3/uL 3.6 - 10.7 10*3/uL [facility] CBC WITH AUTO DIFFERENTIALon 08-12-2023 Basophils (Bld) [#/Vol] 0.0 10*3/uL Normal 0.0-0.2 [facility] Comment on above: Performed By: #### L [id number] ####Sports Director: GRISELDA ROSALES ([id number])[facility] ([facility])[address] [place] [address] Basophils/100 WBC (Bld) 0.4 % Normal 0.0-2.0 [facility] Comment on above: Performed By: #### L [id number] ####Sports Director: GRISELDA ROSALES ([phone])[facility] ([facility])[address] [place] [address] Eosinophils (Bld) [#/Vol] 0.1 10*3/uL Normal 0.0-0.5 [facility] Comment on above: Performed By: #### L [id number] ####Sports Director: GRISELDA ROSALES ([id number])[facility] ([facility])[address] [place] [address] Eosinophils/100 WBC (Bld) 2.1 % Normal 1.0-6.0 [facility] Comment on above: Performed By: #### L [id number] ####Sports Director: GRISELDA ROSALES ([id number])[facility] ([facility])[address] [place] [address] Erythrocyte distribution width (RBC) [Ratio] 14.0 % Normal 11.5-14.5 [facility] Comment on above: Performed By: #### L [id number] ####Sports Director: GRISELDAJAZMYN ROSALES ([id number])[facility] ([facility])[address] [place] [address] ERYTHROCYTE MEAN CORPUSCULAR HEMOGLOBIN CONCENTRATION (G/DL) BY AUTOMATED 33.0 % Normal 32.0-36.0 [facility] Comment on above: Performed By: #### L [id number] ####Sports Director: GRISELDA CONNIE ([id number])[facility] ([facility])[address] [place] [address] Hematocrit (Bld) [Volume fraction] 41.2 % Normal 35.0-47.0 [facility] Comment on above: Performed By: #### L [id number] ####Sports Director: GRISELDAJAZMYN ROSALES ([id number])[facility] ([facility])[address] [place] [address] Hemoglobin (Bld) [Mass/Vol] 13.6 g/dL Normal 11.7-16.0 [facility] Comment on above: Performed By: #### L [id number] ####Sports Director: GRISELDAJAZMYN ROSALES ([id number])[facility] ([facility])[address] [place] [address] IMMATURE GRANS (10*3/UL) IN BLOOD BY AUTOMATED COUNT 0.0 10*3/uL Normal <=0.0 [facility] Comment on above: Performed By: #### L [id number] ####Sports Director: GRISELDA CONNIE ([id number])[facility] ([facility])[address] [place] [address] IMMATURE GRANS/100 LEUKOCYTES IN BLOOD BY AUTOMATED COUNT 0.6 % High <=0.0 [facility] Comment on above: Performed By: #### L [id number] ####Sports Director: GRISELDA SIMMONSJAKE ([id number])[facility] ([facility])[address] [place] [address] Lymphocytes (Bld) [#/Vol] 0.9 10*3/uL Low 1.0-4.3 [facility] Comment on above: Performed By: #### L [id number] ####Sports Director: GRISELDA ROSALES ([id number])[facility] ([facility])[address] [place] [address] Lymphocytes/100 WBC (Bld) 12.6 % Low 20.0-40.0 [facility] Comment on above: Performed By: #### L [id number] ####Sports Director: GRISELDA HAYSADALGISA ([id number])[facility] ([facility])[address] [place] [address] MCH (RBC) [Entitic mass] 30.7 pg Normal 26.0-34.0 [facility] Comment on above: Performed By: #### L [id number] ####Sports Director: GRISELDA HAYSADALGISA ([id number])[facility] ([facility])[address] [place] [address] MCV (RBC) [Entitic vol] 93.0 fL Normal 80.0-98.0 [facility] Comment on above: Performed By: #### L [id number] ####Sports Director: GRISELDA ROSALES ([id number])[facility] ([facility])[address] [place] [address] Monocytes (Bld) [#/Vol] 0.5 10*3/uL Normal 0.0-0.8 [facility] Comment on above: Performed By: #### L [id number] ####Sports Director: GRISELDA ROSALES ([id number])[facility] ([facility])[address] [place] [address] Monocytes/100 WBC (Bld) 6.7 % Normal 2.0-10.0 [facility] Comment on above: Performed By: #### L [id number] ####Sports Director: GRISELDA ROSALES ([id number])[facility] ([facility])[address] [place] [address] Neutrophils (Bld) [#/Vol] 5.2 10*3/uL Normal 1.8-7.0 [facility] Comment on above: Performed By: #### L [id number] ####Sports Director: GRISELDA ROSALES ([id number])[facility] ([facility])[address] [place] [address] Neutrophils/100 WBC (Bld) 77.6 % Normal 40.0-80.0 [facility] Comment on above: Performed By: #### L [id number] ####Sports Director: GRISELDA ROSALES ([id number])[facility] ([facility])[address] [place] [address] Platelet mean volume (Bld) [Entitic vol] 9.9 fL Normal 7.4-12.4 [facility] Comment on above: Result Comment: MPV is a calculated measurement using platelet volume ratio Performed By: #### L [id number] ####Sports Director: GRISELDA ROSALES ([id number])[facility] ([facility])[address] [place] [address] Platelets (Bld) [#/Vol] 224 10*3/uL Normal 140-440 [facility] Comment on above: Performed By: #### L [id number] ####Sports Director: GRISELDA ROSALES ([id number])[facility] [place] [address] RBC (Bld) [#/Vol] 4.43 10*6/uL Normal 3.8-5.20 [facility] Comment on above: Performed By: #### L [id number] ####Sports Director: GRISELDA ROSALES ([id number])[facility] ([facility])[address] [place] [address] WBC (Bld) [#/Vol] 6.7 10*3/uL Normal 3.6-10.7 [facility] Comment on above: Performed By: #### L [id number] ####Sports Director: RGISELDA ROSALES ([id number])[facility] ([facility])[address] [place] [address] COMPREHENSIVE METABOLIC PANE L, WHOLE BLOODon 08-12-2023 Albumin [Mass/Vol] 3.3 g/dL Normal 3.3-5.1 [facility] Comment on above: Performed By: #### L [id number] ####Sports Director: GRISELDA ROSALES ([id number])[facility] [place] [address] ALP [Catalytic activity/Vol] 77 U/L Normal 28-108 [facility] Comment on above: Performed By: #### L [id number] ####Sports Director: GRISELDA ROSALES ([id number])[facility] ([facility])[address] [place] [address] ALT [Catalytic activity/Vol] 29 U/L Normal 14-54 [facility] Comment on above: Performed By: #### L [id number] ####Sports Director: GRISELDA ROSALES ([id number])[facility] [place] [address] ANION GAP, WHOLE BLOOD-ANIPI 4.00 mmol/L Normal 3.00-13.00 [facility] Comment on above: Performed By: #### L [id number] ####Sports Director: GRISELDA ROSALES ([id number])[facility] ([facility])[address] [place] [address] AST [Catalytic activity/Vol] 38 U/L Normal 15-41 [facility] Comment on above: Performed By: #### L [id number] ####Sports Director: GRISELDA ROSALES ([id number])[facility] [place] [address] Bilirubin [Mass/Vol] 0.6 mg/dL Normal 0.0-1.3 [facility] Comment on above: Performed By: #### L [id number] ####Sports Director: GRISELDA ROSALES ([id number])[facility])[address] [place] [address] [place] Calcium [Mass/Vol] 9.0 mg/dL Normal 8.1-10.1 [facility] Comment on above: Performed By: #### L [id number] ####Sports Director: GRISELDA ROSALES ([id number])[facility] ([facility])[address] [place] [address] Chloride [Moles/Vol] 108 mmol/L Normal 98-114 [facility] Comment on above: Performed By: #### L [id number] ####Sports Director: GRISELDA ROSALES ([id number])[facility] [place] [address] CO2 [Moles/Vol] 28 mmol/L Normal 21-29 [facility] Comment on above: Performed By: #### L [id number] ####Sports Director: GRISELDA ROSALES ([id number])[facility] [place] [address] Creatinine [Mass/Vol] 0.7 mg/dL Normal 0.6-1.4 [facility] Comment on above: Performed By: #### L [id number] ####Sports Director: GRISELDA ROSALES ([id number])[facility] [place] [address] EGFR, WHOLE BLOOD-THUY 89.2 mL/min/1.73m*2 Normal >60.0 [facility] Comment on above: Result Comment: Calc ulation based on the Chronic Kidney Disease Epidemiology Collaboration (CKD-EPI) equation refit without adjustment for race Performed By: #### L [id number] ####Sports Director: GRISELDA ROSALES ([id number])[facility])[address] [place] [address] Glucose [Mass/Vol] 128 mg/dL High 67-100 [facility] Comment on above: Performed By: #### L [id number] ####Sports Director: GRISELDA ROSALES ([id number])[facility] ([facility])[address] [place] [address] Potassium [Moles/Vol] 4.5 mmol/L Normal 3.4-5.1 [facility] Comment on above: Performed By: #### L [id number] ####Sports Director: GRISELDA ROSALES ([id number])[facility])[address] [place] [address] Protein [Mass/Vol] 6.5 g/dL Normal 6.0-8.1 [facility] Comment on above: Performed By: #### L [id number] ####Sports Director: GRISELDA ROSALES ([id number])[facility])[address] [place] [address] Sodium [Moles/Vol] 140 mmol/L Normal 133-145 [facility] Comment on above: Performed By: #### L [id number] ####Sports Director: GRISELDA ROSALES ([id number])[facility])[address] [place] [address] Urea nitrogen [Mass/Vol] 17 mg/dL Normal 4-22 [facility] Comment on above: Performed By: #### L [id number] ####Sports Director: GRISELDA ROSALES ([id number])[facility] ([facility])[address] [place] [address] Progress Noteon 08-12-2023 Progress Note Patient arrived for delayed cycle 4 Q 3 week Trazimera. Patient still has cough on ATB. Reports feels well. Encouraged to call PCP to follow up with cough. PIV inserted, blood for CBC and CMP obtained. Infusion complete. PIV d/c'd angio cath intact. Patient ambulatory upon discharge. Normal [facility] CBC W Auto Differential pane l (Bld)Ordered By: Radha Rain on 08-05-2023 Basophils (Bld) [#/Vol] 0.1 10*3/uL 0.0 - 0.2 10*3/uL [facility] Basophils/100 WBC (Bld) 0.8 % 0.0 - 2.0 % [facility] Eosinophils (Bld) [#/Vol] 0.2 10*3/uL 0.0 - 0.5 10*3/uL [facility] Eosinophils/100 WBC (Bld) 3.7 % 1.0 - 6.0 % [facility] Erythrocyte distribution width (RBC) [Ratio] 14.3 % 11.5 - 14.5 % [facility] Hematocrit (Bld) [Volume fraction] 41.6 % 35.0 - 47.0 % [facility] Hemoglobin (Bld) [Mass/Vol] 14.0 g/dL 11.7 - 16.0 g/dL [facility] Immature granulocytes (Bld) [#/Vol] 0.0 10*3/uL NINF - 0.0 10*3/uL [facility] Immature granulocytes/100 WBC (Bld) 0.3 % High NINF - 0.0 % [facility] Interpretation and review of laboratory results Abnormal [facility] Lymphocytes (Bld) [#/Vol] 0.8 10*3/uL Low 1.0 - 4.3 10*3/uL [facility] Lymphocytes/100 WBC (Bld) 12.3 % Low 20.0 - 40.0 % [facility] MCH (RBC) [Entitic mass] 31.3 pg 26.0 - 34.0 pg [facility] MCHC (RBC) [Mass/Vol] 33.7 % 32.0 - 36.0 % [facility] MCV (RBC) [Entitic vol] 93.1 fL 80.0 - 98.0 fL [facility] Monocytes (Bld) [#/Vol] 0.5 10*3/uL 0.0 - 0.8 10*3/uL [facility] Monocytes/100 WBC (Bld) 8.3 % 2.0 - 10.0 % [facility] Neutrophils (Bld) [#/Vol] 4.9 10*3/uL 1.8 - 7.0 10*3/uL [facility] Neutrophils/100 WBC (Bld) 74.6 % 40.0 - 80.0 % [facility] Platelet mean volume (Bld) [Entitic vol] 9.3 fL 7.4 - 12.4 fL [facility] Comment on above: MPV is a calculated measurement using platelet volume ratio Platelets (Bld) [#/Vol] 205 10*3/uL 140 - 440 10*3/uL [facility] RBC (Bld) [#/Vol] 4.47 10*6/uL 3.8 - 5.20 10*6/uL [facility] WBC (Bld) [#/Vol] 6.5 10*3/uL 3.6 - 10.7 10*3/uL [facility] US THYROIDon 07-31-2023 US THYROID Interpreted By: Kayode Beal, STUDY: US THYROID; 07/31/2023 1:58 pm INDICATION: Signs/Symptoms:LEFT SIDETHYROID NODULES, PRESENT FOR YEARS, SEEN AGAIN INCIDENTALLY ON CT OF CHEST. COMPARISON: None. ACCESSION NUMBER(S): [id number] ORDERING CLINICIAN: MARIE DEVI TECHNIQUE: Multiple ultrasonographic images of the thyroid gland were obtained. FINDINGS: RIGHT LOBE: 4.6 x 1.5 x 1.7 cm. LEFT LOBE: 6.8 x 2.6 x 2.8 cm. Mid zone solid predominantly isoechoic heterogeneous TR 3 nodule measuring 4.5 x 4.2 x 2 cm. ISTHMUS: 0.3 cm. IMPRESSION: TR 3 nodule in the left lobe. Please note that these statements are based on the recommendations of the [employer] TI-RADS grading system. ACR TI-RADS recommendations (apply to nodules which have NOT been biopsied): TR5 (?7 points) highly suspicious - FNA if ? 1cm, follow-up if 0.5 -0.9 cm every year for 5 years. Aggregate cancer risk 35%. TR4 (4-6 points) moderately suspicious - FNA if ? 1.5cm, follow-up if 1 -1.4 cm in 1, 2, 3 and 5 years. Aggregate cancer risk 9.1% TR3 (3 points) mildly suspicious - FNA if ? 2.5cm, follow-up if 1.5 -2.4 cm in 1, 3 and 5 years. Aggregate cancer risk 4.8% TR2 (2 points) not suspicious. No FNA or follow-up.Aggregate cancer risk 1.5% TR1 (0 points) benign - No FNA or follow-up. Aggregate cancer risk 0.3% Signed by: Kayode Beal 08/01/2023 8:10 PM Dictation workstation: [id number] [facility] US Thyroid glandon These images are not reportable by radiology and will not be interpreted by Radiologists. IMAGING These images are not reportable by radiology and will not be interpreted by Radiologists. IMAGING CBC W Auto Differential pane l (Bld)Ordered By: Radha Rain on 07-15-2023 Basophils (Bld) [#/Vol] 0.0 10*3/uL 0.0 - 0.2 10*3/uL [facility] Basophils (Bld) [#/Vol] 0 10*3/uL 0.0 - 0.2 10*3/uL [facility] Basophils/100 WBC (Bld) 0.7 % 0.0 - 2.0 % [facility] Eosinophils (Bld) [#/Vol] 0.1 10*3/uL 0.0 - 0.5 10*3/uL [facility] Eosinophils/100 WBC (Bld) 2.2 % 1.0 - 6.0 % [facility] Erythrocyte distribution width (RBC) [Ratio] 15.1 % High 11.5 - 14.5 % [facility] Hematocrit (Bld) [Volume fraction] 40.5 % 35.0 - 47.0 % [facility] Hemoglobin (Bld) [Mass/Vol] 13.4 g/dL 11.7 - 16.0 g/dL [facility] Immature granulocytes (Bld) [#/Vol] 0.0 10*3/uL NINF - 0.0 10*3/uL [facility] Immature granulocytes (Bld) [#/Vol] 0 10*3/uL NINF - 0.0 10*3/uL [facility] Immature granulocytes/100 WBC (Bld) 0.2 % High NINF - 0.0 % [facility] Interpretation and review of laboratory results Abnormal [facility] Lymphocytes (Bld) [#/Vol] 1.1 10*3/uL 1.0 - 4.3 10*3/uL [facility] Lymphocytes/100 WBC (Bld) 18.7 % Low 20.0 - 40.0 % [facility] MCH (RBC) [Entitic mass] 31.1 pg 26.0 - 34.0 pg [facility] MCHC (RBC) [Mass/Vol] 33.1 % 32.0 - 36.0 % [facility] MCV (RBC) [Entitic vol] 94.0 fL 80.0 - 98.0 fL [facility] MCV (RBC) [Entitic vol] 94 fL 80.0 - 98.0 fL [facility] Monocytes (Bld) [#/Vol] 0.4 10*3/uL 0.0 - 0.8 10*3/uL [facility] Monocytes/100 WBC (Bld) 6.4 % 2.0 - 10.0 % [facility] Neutrophils (Bld) [#/Vol] 4.3 10*3/uL 1.8 - 7.0 10*3/uL [facility] Neutrophils/100 WBC (Bld) 71.8 % 40.0 - 80.0 % [facility] Platelet mean volume (Bld) [Entitic vol] 9.3 fL 7.4 - 12.4 fL [facility] Comment on above: MPV is a calculated measurement using platelet volume ratio Platelets (Bld) [#/Vol] 229 10*3/uL 140 - 440 10*3/uL [facility] RBC (Bld) [#/Vol] 4.31 10*6/uL 3.8 - 5.20 10*6/uL [facility] WBC (Bld) [#/Vol] 5.9 10*3/uL 3.6 - 10.7 10*3/uL [facility] Comprehensive metabolic 1998 panelon 07-15-2023 Albumin [Mass/Vol] 4.0 g/dL 3.5 - 5.0 g/dL [facility] Albumin [Mass/Vol] 4 g/dL 3.5 - 5.0 g/dL [facility] ALP [Catalytic activity/Vol] 80 U/L 38 - 126 U/L [facility] ALT [Catalytic activity/Vol] 14 U/L 0 - 34 U/L [facility] Anion gap [Moles/Vol] 6 mmol/L 3 - 13 mmol/L [facility] AST [Catalytic activity/Vol] 43 U/L 15 - 46 U/L [facility] Bilirubin [Mass/Vol] 0.7 mg/dL 0.2 - 1 .3 mg/dL [facility] Calcium [Mass/Vol] 8.8 mg/dL 8.4 - 10. 4 mg/dL [facility] Chloride [Moles/Vol] 106 mmol/L 98 - 10 7 mmol/L [facility] CO2 [Moles/Vol] 26 mmol/L 22 - 30 mmol/L [facility] Creatinine [Mass/Vol] 0.56 mg/dL 0.52 - 1.04 mg/dL [facility] GFR/1.73 sq M.predicted MDRD (S/P/Bld) [Vol rate/Area] - PINF [facility] Comment on above: Calculation based on the Chronic Kidney Disease Epidemiology Collaboration (CKD-EPI) equation refit without adjustment for race Glucose [Mass/Vol] 160 mg/dL High 70 - 100 mg/dL [facility] Interpretation and review of laboratory results Abnormal [facility] Potassium [Moles/Vol] 4.0 mmol/L 3.5 - 5.1 mmol/L [facility] Potassium [Moles/Vol] 4 mmol/L 3.5 - 5.1 mmol/L [facility] Protein [Mass/Vol] 7.1 g/dL 6.3 - 8.2 g/dL [facility] Sodium [Moles/Vol] 138 mmol/L 135 - 145 mmol/L [facility] Urea nitrogen [Mass/Vol] 19 mg/dL High 7 - 17 mg/dL [facility] US Heart TransthoracicOrdere d By: Philippe Hoskins on 06-26-2023 Aortic Root 3.2 cm [facility] Work Phone: AR Max Velocity PISA 3.6 m/s [facility] Work Phone: AR PHT 443.0 ms [facility] Work Phone: Ascending Aorta 3.4 cm [facility] Work Phone: AV Area by Peak Velocity 2.6 cm2 [facility] Work Phone: AV Area by VTI 2.6 cm2 [facility] Work Phone: [phone] AV AT 74.22 ms [facility] Work Phone: [phone] AV Mean Gradient 3 mmHg [facility] Work Phone: AV Mean Velocity 0.8 m/s [facility] Work Phone: AV Peak Gradient 7 mmHg [facility] Work Phone: AV Peak Velocity 1.4 m/s [facility] Work Phone: AV Velocity Ratio 0.71 [facility] Work Phone: AV VTI 24.0 cm [facility] Work Phone: E/E' Lateral 8.50 [facility] Work Phone: E/E' Ratio (Averaged) 8.50 [facility] Work Phone: E/E' Septal 8.50 [facility] Work Phone: EF BP 62 % 55 - 100 % [facility] Work Phone: Fractional Shortening 2D 33 % 28 - 44 % [facility] Work Phone: Global Longitudinal Strain -19.4 % [facility] Work Phone: Global Longitudinal Strain -21.0 % [facility] Work Phone: Global Longitudinal Strain -13.9 % [facility] Work Phone: Global Longitudinal Strain -18.1 % [facility] [employer] Work Phone: Interpretation and review of laboratory results Abnormal [facility] Work Phone: IVC Diameter 1.3 cm [facility] Work Phone: IVSd 1.1 cm Abnormal 0.6 - 0.9 cm [facility] Work Phone: LA Diameter 3.2 cm [facility] Work Phone: LA Volume 2C 63 mL Abnormal 22 - 52 mL [facility] Work Phone: LA Volume 4C 51 mL 22 - 52 mL [facility] Work Phone: LA Volume A/L 61 mL [facility] Work Phone: LA Volume BP 58 mL Abnormal 22 - 52 mL [facility] Work Phone: LA/AO Root Ratio 1.00 [facility] Work Phone: LV E' Lateral Velocity 6 cm/s [facility] Work Phone: LV E' Septal Velocity 6 cm/s [facility] [email or web address] Work Phone: LV EDV A4C 78 mL [facility] [employer] Work Phone: LV Ejection Fraction A4C 62 % [facility] [employer] Work Phone: LV ESV A4C 30 mL [facility] [employer] Work Phone: LV Mass 2D 188.1 g Abnormal 67 - 162 g [facility] [employer] Work Phone: LV RWT Ratio 0.41 [facility] [employer] Work Phone: LVIDd 4.9 cm 3.9 - 5.3 cm [facility] [employer] Work Phone: LVIDs 3.3 cm [facility] [employer] Work Phone: LVOT Area 3.5 cm2 [facility] [employer] Work Phone: LVOT Cardiac Output 5.6 liter/minute [facility] [employer] Work Phone: LVOT Diameter 2.1 cm [facility] [employer] Work Phone: LVOT Mean Gradient 2 mmHg [facility] [employer] Work Phone: LVOT Peak Gradient 4 mmHg [facility] [employer] Work Phone: LVOT Peak Velocity 1.0 m/s [facility] [employer] Work Phone: LVOT SV 63.0 ml [facility] [employer] Work Phone: LVOT VTI 18.2 cm [facility] [employer] Work Phone: LVOT:AV VTI Index 0.76 [facility] [employer] Work Phone: LVPWd 1.0 cm Abnormal 0.6 - 0.9 cm [facility] [employer] Work Phone: MV A Velocity 0.73 m/s [facility] [employer] Work Phone: MV E Velocity 0.51 m/s [facility] [employer] Work Phone: MV E Wave Deceleration Time 187.8 ms [facility] [employer] Work Phone: MV E/A 0.70 [facility] [employer] Work Phone: RA Area 4C 52.0 mL [facility] [employer] Work Phone: [phone] RA Area 4C 50.1 mL [facility] [employer] Work Phone: [phone] RV Basal Dimension 3.5 cm [facility] [employer] Work Phone: RV Free Wall Peak S' 23 cm/s [facility] [employer] Work Phone: RV Mid Dimension 2.7 cm [facility] [employer] Work Phone: TAPSE 2.6 cm 1.7 cm [employer] Work Phone: [phone] [facility] [employer] Work Phone: US Heart Transthoracicon Left Ventricle: Left ventricle size is normal. Mildly increased wall thickness. Mild septal thickening. Normal left ventricular systolic function. EF by 2D Simpsons Biplane is 62%. Normal wall motion. Right Ventricle: Right ventricle size is normal. Normal systolic function. No significant valvular abnormalities. Left Ventricle Left ventricle size is normal. Mildly increased wall thickness. Mild septal thickening. Normal left ventricular systolic function. EF by 2D [employer]ons Biplane is 62%. Normal wall motion. Grade I diastolic dysfunction with normal LAP. Right Ventricle Right ventricle size is normal. Normal systolic function. Left Atrium Left atrium is mildly dilated. Right Atrium Right atrium size is normal. IVC/SVC IVC diameter is normal and decreases greater than 50% during inspiration; therefore the estimated right atrial pressure is normal (~3 mmHg). Mitral Valve Valve structure is normal. Trace regurgitation. No stenosis noted. Tricuspid Valve Valve structure is normal. Trace regurgitation. Aortic Valve Trileaflet. No cusp thickening. No cusp calcification. Trace regurgitation. No stenosis. Pulmonic Valve Valve structure is normal. Trace regurgitation. Ascending Aorta Normal sized sinuses of Valsalva and ascending aorta. Pericardium No pericardial effusion. Septum No interatrial shunt visualized on color Doppler. Study Details Image quality: adequate. Heart rate: 89 bpm. Blood pressure: 123/69 mmHg. No contrast was given. Echo Additional Conclusions No significant valvular abnormalities. Wall Scoring Baseline Score Index: 1.00 The left ventricular wall motion is normal. CV CPACS CBC W Auto Differential pane l (Bld)Ordered By: Radha Rain on 06-24-2023 Basophils (Bld) [#/Vol] 0.0 10*3/uL 0.0 - 0.2 10*3/uL [facility] Basophils (Bld) [#/Vol] 0 10*3/uL 0.0 - 0.2 10*3/uL [facility] Basophils/100 WBC (Bld) 0.6 % 0.0 - 2.0 % [facility] Eosinophils (Bld) [#/Vol] 0.3 10*3/uL 0.0 - 0.5 10*3/uL [facility] Eosinophils/100 WBC (Bld) 3.8 % 1.0 - 6.0 % [facility] Erythrocyte distribution width (RBC) [Ratio] 16.3 % High 11.5 - 14.5 % [facility] Hematocrit (Bld) [Volume fraction] 39.4 % 35.0 - 47.0 % [facility] Hemoglobin (Bld) [Mass/Vol] 12.9 g/dL 11.7 - 16.0 g/dL [facility] Immature granulocytes (Bld) [#/Vol] 0.0 10*3/uL NINF - 0.0 10*3/uL [facility] Immature granulocytes (Bld) [#/Vol] 0 10*3/uL NINF - 0.0 10*3/uL [facility] Immature granulocytes/100 WBC (Bld) 0.4 % High NINF - 0.0 % [facility] Interpretation and review of laboratory results Abnormal [facility] Lymphocytes (Bld) [#/Vol] 1.2 10*3/uL 1.0 - 4.3 10*3/uL [facility] Lymphocytes/100 WBC (Bld) 17.2 % Low 20.0 - 40.0 % [facility] MCH (RBC) [Entitic mass] 31.2 pg 26.0 - 34.0 pg [facility] MCHC (RBC) [Mass/Vol] 32.7 % 32.0 - 36.0 % [facility] MCV (RBC) [Entitic vol] 95.2 fL 80.0 - 98.0 fL [facility] Monocytes (Bld) [#/Vol] 0.5 10*3/uL 0.0 - 0.8 10*3/uL [facility] Monocytes/100 WBC (Bld) 7.4 % 2.0 - 10.0 % [facility] Neutrophils (Bld) [#/Vol] 4.9 10*3/uL 1.8 - 7.0 10*3/uL [facility] Neutrophils/100 WBC (Bld) 70.6 % 40.0 - 80.0 % [facility] Platelet mean volume (Bld) [Entitic vol] 9.5 fL 7.4 - 12.4 fL [facility] Comment on above: MPV is a calculated measurement using platelet volume ratio Platelets (Bld) [#/Vol] 204 10*3/uL 140 - 440 10*3/uL [facility] RBC (Bld) [#/Vol] 4.14 10*6/uL 3.8 - 5.20 10*6/uL [facility] WBC (Bld) [#/Vol] 6.9 10*3/uL 3.6 - 10.7 10*3/uL [facility] Comprehensive metabolic 1998 panelon 06-24-2023 Albumin [Mass/Vol] 3.9 g/dL 3.5 - 5.0 g/dL [facility] ALP [Catalytic activity/Vol] 110 U/L 38 - 126 U/L [facility] ALT [Catalytic activity/Vol] 37 U/L High 0 - 34 U/L [facility] Anion gap [Moles/Vol] 6 mmol/L 3 - 13 mmol/L [facility] AST [Catalytic activity/Vol] 40 U/L 15 - 46 U/L [facility] Bilirubin [Mass/Vol] 0.6 mg/dL 0.2 - 1 .3 mg/dL [facility] Calcium [Mass/Vol] 8.9 mg/dL 8.4 - 10. 4 mg/dL [facility] Chloride [Moles/Vol] 107 mmol/L 98 - 10 7 mmol/L [facility] CO2 [Moles/Vol] 25 mmol/L 22 - 30 mmol/L [facility] Creatinine [Mass/Vol] 0.58 mg/dL 0.52 - 1.04 mg/dL [facility] GFR/1.73 sq M.predicted MDRD (S/P/Bld) [Vol rate/Area] - PINF [facility] Comment on above: Calculation based on the Chronic Kidney Disease Epidemiology Collaboration (CKD-EPI) equation refit without adjustment for race Glucose [Mass/Vol] 136 mg/dL High 70 - 100 mg/dL [facility] Interpretation and review of laboratory results Abnormal [facility] Potassium [Moles/Vol] 3.9 mmol/L 3.5 - 5.1 mmol/L [facility] [facility] [Mass/Vol] 7.0 g/dL 6.3 - 8.2 g/dL [facility] Protein [Mass/Vol] 7 g/dL 6.3 - 8.2 g/dL [facility] Sodium [Moles/Vol] 139 mmol/L 135 - 145 mmol/L [facility] Urea nitrogen [Mass/Vol] 18 mg/dL High 7 - 17 mg/dL [facility] CNPNon 06-13-2023 CNPN Telephone (HCSIND) MADIHA PERALES ([id number]) 1945 F Date Time Provider Department 06/13/23 TISHA FERNANDEZ During your visit today, we recorded the following information about you: Tisha Fernandez RN 06/13/2023 8:45 AM Signed Patient accepted and confirmed home health start of care (SOC) for 06/12/23. Visit time established. Allergies As of Date: 06/13/2023 Noted Allergy Reaction ALENDRONIC ACID 05/07/2010 16 - Unknown ASA (SALICYLATES) 05/07/2010 16 - Unknown CEPHALEXIN 05/07/2010 16 - Unknown LYRICA (PREGABALIN) 05/07/2010 16 - Unknown MRI CONTRAST (IODINE) 06/05/2023 4 - Hives Comments: Hives x 5 locations, redness of right eye. NICKEL 05/07/2010 16 - Unknown PENICILLINS 05/12/2010 16 - Unknown Date Reviewed: 06/07/2023 Reviewed by: Rajni Dobbins, HANNAH - Fully Assessed Reason for Visit: Home Care [4073] Cmt: Start of care confirmation call Prescriptions as of 04/12/2024 - anastrozole (ARIMIDEX) 1 mg tablet Take 1 mg by mouth once daily. - memantine (NAMENDA) 10 mg tablet Take 10 mg by mouth once daily. - ondansetron (ZOFRAN) 8 mg tablet Take 8 mg by mouth every 8 hours as needed for nausea/vomiting. - prochlorperazine (COMPAZINE) 10 mg tablet Take 10 mg by mouth every 6 hours as needed for nausea/vomiting. - Multivitamin capsule Take 1 capsule by mouth once daily. - loratadine (CLARITIN) 10 mg tablet Take 1 tablet by mouth every afternoon. - DULoxetine (CYMBALTA) 20 mg capsule Take 1 capsule (20 mg) by mouth once daily. - carbidopa-levodopa (SINEMET 25-100) 25-100 mg per tablet Take 1 tablet by mouth three times a day. 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/2023 Fever in adult [R50.9] 06/05/2023 06/08/2023 FTT (failure to thrive) in adult [R62.7] 06/05/2023 06/08/2023 Neutropenic fever (HCC) (HCC) [D70.9, R50.81] 06/05/2023 06/08/2023 HCAP (healthcare-associat ed pneumonia) [J18.9] 06/08/2023 Encounter Status:Closed by YONY OSULLIVAN on 10/21/24 [facility] 06-10-2023 CNCO Letter Text Normal [facility] CNPNon 06-09-2023 CNPN Telephone (HCSIND) MADIHA PERALES ([id number]) 1945 F Date Time Provider Department 06/09/23 [place] [place] HCSIND During your visit today, we recorded the following information about you: [place] Fiore 06/09/2023 9:35 AM Signed Hello there! My name is [Your Name], and I'm calling from [facility]. Your doctor wants to make sure you have the best care at home after leaving the hospital. Do you have a few minutes to chat about what to expect from home care? yes Before we start, have you received help from a home care company in the last 60 days? No They might have assisted with things like bathing, medication, checking your blood pressure, or exercises. Our goal is to make your transition home smooth. A nurse/therapist (sagar mcdaniel) will visit you within 2 days of leaving the hospital to get you started with home care. Is that okay with you? yes They'll contact you the night before or the morning of the visit to tell you when they'll arrive. Would you like them to call or text you? Russell Great! What address will we be seeing you at? [address] [place] [id number] Do you have any upcoming appointments or things we need to schedule around? at 9:00 When they call or text, the number might be unfamiliar or blocked. If they leave a message, please reply so we can plan your visit. Homecare helps with your recovery. During the first visit, the nurse/therapist (sagar mcdaniel) will talk with you, set goals, and plan your care. This visit might take one and a half to three hours. They'll figure out which services you need and how often they will see you. The purpose of homecare is to teach you or a family member or friend to manage your condition and provide any ordered treatments. Do you have someone to assist you at home? Marcos They'll need to see your discharge instructions and medication bottles for any medications you are taking, both prescription and over the counter. Can you have those ready? yes Any questions so far? no We understand it's not easy having new people in your home while you're recovering. Our caregivers will treat you with dignity and respect, and we ask the same in return. The safety of our patients and caregivers is important to us. We ask that you put away and secure any animals or weapons in the home prior to our caregivers arriving. We also ask that you, or anyone else in the home, are not under the influence of any substances, refrain from raising your voice, using profanity, or being threatening or aggressive during visits. If you don't have questions, I have just one more. Did you get a flu shot this year? Yes Where did you get it? [facility] Allergies As of Date: 06/09/2023 Noted Allergy Reaction ALENDRONIC ACID 05/07/2010 16 - Unknown ASA (SALICYLATES) 05/07/2010 16 - Unknown CEPHALEXIN 05/07/2010 16 - Unknown LYRICA (PREGABALIN) 05/07/2010 16 - Unknown MRI CONTRAST (IODINE) 06/05/2023 4 - Hives Comments: Hives x 5 locations, redness of right eye. NICKEL 05/07/2010 16 - Unknown PENICILLINS 05/12/2010 16 - Unknown Date Reviewed: 06/07/2023 Reviewed by: Rajni Dobbins RN - Fully Assessed Reason for Visit: Home Care [4073] Cmt: Confirmation Call Prescriptions as of 06/09/2023 - levoFLOXacin (LEVAQUIN) 750 mg tablet Take 1 tablet by mouth once daily for 4 days. - Multivitamin capsule Take 1 capsule by mouth once daily. - loratadine (CLARITIN) 10 mg tablet Take 1 tablet by mouth every afternoon. - DULoxetine (CYMBALTA) 20 mg capsule Take 1 capsule (20 mg) by mouth once daily. 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 CNPN Telephone (HCSIND) MADIHA PERALES ([id number]) 1945 F Date Time Provider Department 06/09/23 EPI JENNINGS HCSIND During your visit today, we recorded the following information about you: Allergies As of Date: 06/09/2023 Noted Allergy Reaction ALENDRONIC ACID 05/07/2010 16 - Unknown ASA (SALICYLATES) 05/07/2010 16 - Unknown CEPHALEXIN 05/07/2010 16 - Unknown LYRICA (PREGABALIN) 05/07/2010 16 - Unknown MRI CONTRAST (IODINE) 06/05/2023 4 - Hives Comments: Hives x 5 locations, redness of right eye. NICKEL 05/07/2010 16 - Unknown PENICILLINS 05/12/2010 16 - Unknown Date Reviewed: 06/07/2023 Reviewed by: Rajni Dobbins RN - Fully Assessed Reason for Visit: Home Care [4073] Cmt: Follow for [facility] Prescriptions as of 06/09/2023 - levoFLOXacin (LEVAQUIN) 750 mg tablet Take 1 tablet by mouth once daily for 4 days. - Multivitamin capsule Take 1 capsule by mouth once daily. - loratadine (CLARITIN) 10 mg tablet Take 1 tablet by mouth every afternoon. - DULoxetine (CYMBALTA) 20 mg capsule Take 1 capsule (20 mg) by mouth once daily. 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5 10*3/uL [facility] Eosinophils/100 WBC (Bld) 0.9 % Low 1.0 - 6.0 % [facility] Erythrocyte distribution width (RBC) [Ratio] 15.8 % High 11.5 - 14.5 % [facility] Hematocrit (Bld) [Volume fraction] 38.2 % 35.0 - 47.0 % [facility] Hemoglobin (Bld) [Mass/Vol] 12.9 g/dL 11.7 - 16.0 g/dL [facility] Immature granulocytes (Bld) [#/Vol] 0.1 10*3/uL High NINF - 0.0 10*3/uL [facility] Immature granulocytes/100 WBC (Bld) 1.9 % High NINF - 0.0 % [facility] Interpretation and review of laboratory results Abnormal [facility] Lymphocytes (Bld) [#/Vol] 0.4 10*3/uL Low 1.0 - 4.3 10*3/uL [facility] Lymphocytes/100 WBC (Bld) 6.2 % Low 20.0 - 40.0 % [facility] MCH (RBC) [Entitic mass] 31.2 pg 26.0 - 34.0 pg [facility] MCHC (RBC) [Mass/Vol] 33.8 % 32.0 - 36.0 % [facility] MCV (RBC) [Entitic vol] 92.5 fL 80.0 - 98.0 fL [facility] Monocytes (Bld) [#/Vol] 0.5 10*3/uL 0.0 - 0.8 10*3/uL [facility] Monocytes/100 WBC (Bld) 6.7 % 2.0 - 10.0 % [facility] Neutrophils (Bld) [#/Vol] 5.8 10*3/uL 1.8 - 7.0 10*3/uL [facility] Neutrophils/100 WBC (Bld) 83.4 % High 40.0 - 80.0 % [facility] Platelet mean volume (Bld) [Entitic vol] 9.6 fL 7.4 - 12.4 fL [facility] Comment on above: MPV is a calculated measurement using platelet volume ratio Platelets (Bld) [#/Vol] 251 10*3/uL 140 - 440 10*3/uL [facility] RBC (Bld) [#/Vol] 4.13 10*6/uL 3.8 - 5.20 10*6/uL [facility] WBC (Bld) [#/Vol] 6.9 10*3/uL 3.6 - 10.7 10*3/uL [facility] Comprehensive metabolic 1998 panelon 06-03-2023 Albumin [Mass/Vol] 3.9 g/dL 3.5 - 5.0 g/dL [facility] ALP [Catalytic activity/Vol] 79 U/L 38 - 126 U/L [facility] ALT [Catalytic activity/Vol] 24 U/L 0 - 34 U/L [facility] Anion gap [Moles/Vol] 12 mmol/L 3 - 13 mmol/L [facility] AST [Catalytic activity/Vol] 45 U/L 15 - 46 U/L [facility] Bilirubin [Mass/Vol] 0.8 mg/dL 0.2 - 1 .3 mg/dL [facility] Calcium [Mass/Vol] 8.8 mg/dL 8.4 - 10. 4 mg/dL [facility] Chloride [Moles/Vol] 100 mmol/L 98 - 10 7 mmol/L [facility] CO2 [Moles/Vol] 22 mmol/L 22 - 30 mmol/L [facility] Creatinine [Mass/Vol] 0.74 mg/dL 0.52 - 1.04 mg/dL [facility] GFR/1.73 sq M.predicted MDRD (S/P/Bld) [Vol rate/Area] 83.4 mL/min/{1.73_m2} - PINF [facility] Comment on above: Calculation based on the Chronic Kidney Disease Epidemiology Collaboration (CKD-EPI) equation refit without adjustment for race Glucose [Mass/Vol] 146 mg/dL High 70 - 100 mg/dL [facility] Interpretation and review of laboratory results Abnormal [facility] Potassium [Moles/Vol] 4.5 mmol/L 3.5 - 5.1 mmol/L [facility] Protein [Mass/Vol] 7.0 g/dL 6.3 - 8.2 g/dL [facility] Sodium [Moles/Vol] 134 mmol/L Low 135 - 145 mmol/L [facility] Urea nitrogen [Mass/Vol] 12 mg/dL 7 - 17 mg/dL [facility] Urinalysis complete panel (U )on 06-03-2023 Bacteria LM.HPF (Urine sed) [#/Area] Moderate Abnormal Negative /HPF [facility] Bilirubin Ql (U) Negative Negative mg/dL [facility] Clarity (U) Clear Clear [facility] Color (U) Yellow Lt. Yellow [facility] Epithelial cells.squamous LM.HPF (Urine sed) [#/Area] 0-2 [facility] Glucose Ql (U) Normal Normal (<70) mg/dL [facility] Hemoglobin Ql (U) 0.06 mg/dL Abnormal Negative [facility] Interpretation and review of laboratory results Abnormal [facility] Ketones (U) [Mass/Vol] Negative Negat susy mg/dL [facility] Leukocyte esterase Test strip Ql (U) 500 Abnormal Negative Jose/uL [facility] Nitrite Ql (U) Negative Negative [facility] Non-Squamous Epithalial Cells, Urine 0-2 Abnormal Negative /HPF [facility] pH (U) 7.0 [pH] 5.0 - 8.0 pH [facility] Protein (U) [Mass/Vol] Negative Negat susy mg/dL [facility] RBC LM.HPF (Urine sed) [#/Area] 3-5 Abnormal [facility] Specific gravity (U) [Rel density] 1.010 1.005 - 1.030 [facility] Urobilinogen (U) [Mass/Vol] Normal Normal (0-1) mg/dL [facility] Volume, Urine 8-12 mL [facility] WBC LM.HPF (Urine sed) [#/Area] 6-10 Abnormal [facility] CBC W Auto Differential pane l (Bld)Ordered By: Radha Rain on 05-27-2023 Basophils (Bld) [#/Vol] 0.0 10*3/uL 0.0 - 0.2 10*3/uL [facility] Basophils/100 WBC (Bld) 0.8 % 0.0 - 2.0 % [facility] Eosinophils (Bld) [#/Vol] 0.1 10*3/uL 0.0 - 0.5 10*3/uL [facility] Eosinophils/100 WBC (Bld) 1.7 % 1.0 - 6.0 % [facility] Erythrocyte distribution width (RBC) [Ratio] 15.8 % High 11.5 - 14.5 % [facility] Hematocrit (Bld) [Volume fraction] 38.5 % 35.0 - 47.0 % [facility] Hemoglobin (Bld) [Mass/Vol] 13.1 g/dL 11.7 - 16.0 g/dL [facility] Immature granulocytes (Bld) [#/Vol] 0.1 10*3/uL High NINF - 0.0 10*3/uL [facility] Immature granulocytes/100 WBC (Bld) 2.1 % High NINF - 0.0 % [facility] Interpretation and review of laboratory results Abnormal [facility] Lymphocytes (Bld) [#/Vol] 0.7 10*3/uL Low 1.0 - 4.3 10*3/uL [facility] Lymphocytes/100 WBC (Bld) 12.7 % Low 20.0 - 40.0 % [facility] MCH (RBC) [Entitic mass] 31.6 pg 26.0 - 34.0 pg [facility] MCHC (RBC) [Mass/Vol] 34.0 % 32.0 - 36.0 % [facility] MCV (RBC) [Entitic vol] 92.8 fL 80.0 - 98.0 fL [facility] Monocytes (Bld) [#/Vol] 0.4 10*3/uL 0.0 - 0.8 10*3/uL [facility] Monocytes/100 WBC (Bld) 7.8 % 2.0 - 10.0 % [facility] Neutrophils (Bld) [#/Vol] 4.0 10*3/uL 1.8 - 7.0 10*3/uL [facility] Neutrophils/100 WBC (Bld) 74.9 % 40.0 - 80.0 % [facility] Platelet mean volume (Bld) [Entitic vol] 9.5 fL 7.4 - 12.4 fL [facility] Comment on above: MPV is a calculated measurement using platelet volume ratio Platelets (Bld) [#/Vol] 226 10*3/uL 140 - 440 10*3/uL [facility] RBC (Bld) [#/Vol] 4.15 10*6/uL 3.8 - 5.20 10*6/uL [facility] WBC (Bld) [#/Vol] 5.3 10*3/uL 3.6 - 10.7 10*3/uL [facility] Comprehensive metabolic 1998 panelon 05-27-2023 Albumin [Mass/Vol] 4.0 g/dL 3.5 - 5.0 g/dL [facility] ALP [Catalytic activity/Vol] 81 U/L 38 - 126 U/L [facility] ALT [Catalytic activity/Vol] 20 U/L 0 - 34 U/L [facility] Anion gap [Moles/Vol] 9 mmol/L 3 - 13 mmol/L [facility] AST [Catalytic activity/Vol] 33 U/L 15 - 46 U/L [facility] Bilirubin [Mass/Vol] 0.6 mg/dL 0.2 - 1 .3 mg/dL [facility] Calcium [Mass/Vol] 8.8 mg/dL 8.4 - 10. 4 mg/dL [facility] Chloride [Moles/Vol] 103 mmol/L 98 - 10 7 mmol/L [facility] CO2 [Moles/Vol] 24 mmol/L 22 - 30 mmol/L [facility] Creatinine [Mass/Vol] 0.54 mg/dL 0.52 - 1.04 mg/dL [facility] GFR/1.73 sq M.predicted MDRD (S/P/Bld) [Vol rate/Area] - PINF [facility] Comment on above: Calculation based on the Chronic Kidney Disease Epidemiology Collaboration (CKD-EPI) equation refit without adjustment for race Glucose [Mass/Vol] 131 mg/dL High 70 - 100 mg/dL [facility] Interpretation and review of laboratory results Abnormal [facility] Potassium [Moles/Vol] 3.7 mmol/L 3.5 - 5.1 mmol/L [facility] Protein [Mass/Vol] 6.7 g/dL 6.3 - 8.2 g/dL [facility] Sodium [Moles/Vol] 135 mmol/L 135 - 145 mmol/L [facility] Urea nitrogen [Mass/Vol] 12 mg/dL 7 - 17 mg/dL [facility] CBC W Auto Differential pane l (Bld)Ordered By: Annie Montalvo on 05-20-2023 Basophils (Bld) [#/Vol] 0.0 10*3/uL 0.0 - 0.2 10*3/uL [facility] Basophils/100 WBC (Bld) 0.7 % 0.0 - 2.0 % [facility] Eosinophils (Bld) [#/Vol] 0.1 10*3/uL 0.0 - 0.5 10*3/uL [facility] Eosinophils/100 WBC (Bld) 1.1 % 1.0 - 6.0 % [facility] Erythrocyte distribution width (RBC) [Ratio] 15.3 % High 11.5 - 14.5 % [facility] Hematocrit (Bld) [Volume fraction] 40.1 % 35.0 - 47.0 % [facility] Hemoglobin (Bld) [Mass/Vol] 13.8 g/dL 11.7 - 16.0 g/dL [facility] Immature granulocytes (Bld) [#/Vol] 0.1 10*3/uL High NINF - 0.0 10*3/uL [facility] Immature granulocytes/100 WBC (Bld) 1.5 % High NINF - 0.0 % [facility] Interpretation and review of laboratory results Abnormal [facility] Lymphocytes (Bld) [#/Vol] 0.6 10*3/uL Low 1.0 - 4.3 10*3/uL [facility] Lymphocytes/100 WBC (Bld) 11.6 % Low 20.0 - 40.0 % [facility] MCH (RBC) [Entitic mass] 31.9 pg 26.0 - 34.0 pg [facility] MCHC (RBC) [Mass/Vol] 34.4 % 32.0 - 36.0 % [facility] MCV (RBC) [Entitic vol] 92.6 fL 80.0 - 98.0 fL [facility] Monocytes (Bld) [#/Vol] 0.3 10*3/uL 0.0 - 0.8 10*3/uL [facility] Monocytes/100 WBC (Bld) 5.8 % 2.0 - 10.0 % [facility] Neutrophils (Bld) [#/Vol] 4.4 10*3/uL 1.8 - 7.0 10*3/uL [facility] Neutrophils/100 WBC (Bld) 79.3 % 40.0 - 80.0 % [facility] Platelet mean volume (Bld) [Entitic vol] 9.8 fL 7.4 - 12.4 fL [facility] Comment on above: MPV is a calculated measurement using platelet volume ratio Platelets (Bld) [#/Vol] 237 10*3/uL 140 - 440 10*3/uL [facility] RBC (Bld) [#/Vol] 4.33 10*6/uL 3.8 - 5.20 10*6/uL [facility] WBC (Bld) [#/Vol] 5.5 10*3/uL 3.6 - 10.7 10*3/uL [facility] Comprehensive metabolic 1998 panelon 05-20-2023 Albumin [Mass/Vol] 4.4 g/dL 3.5 - 5.0 g/dL [facility] ALP [Catalytic activity/Vol] 81 U/L 38 - 126 U/L [facility] ALT [Catalytic activity/Vol] 42 U/L High 0 - 34 U/L [facility] Anion gap [Moles/Vol] 7 mmol/L 3 - 13 mmol/L [facility] AST [Catalytic activity/Vol] 46 U/L 15 - 46 U/L [facility] Bilirubin [Mass/Vol] 0.7 mg/dL 0.2 - 1 .3 mg/dL [facility] Calcium [Mass/Vol] 8.9 mg/dL 8.4 - 10. 4 mg/dL [facility] Chloride [Moles/Vol] 106 mmol/L 98 - 10 7 mmol/L [facility] CO2 [Moles/Vol] 23 mmol/L 22 - 30 mmol/L [facility] Creatinine [Mass/Vol] 0.62 mg/dL 0.52 - 1.04 mg/dL [facility] GFR/1.73 sq M.predicted MDRD (S/P/Bld) [Vol rate/Area] - PINF [facility] Comment on above: Calculation based on the Chronic Kidney Disease Epidemiology Collaboration (CKD-EPI) equation refit without adjustment for race Glucose [Mass/Vol] 115 mg/dL High 70 - 100 mg/dL [facility] Interpretation and review of laboratory results Abnormal [facility] Potassium [Moles/Vol] 4.3 mmol/L 3.5 - 5.1 mmol/L [facility] Protein [Mass/Vol] 7.5 g/dL 6.3 - 8.2 g/dL [facility] Sodium [Moles/Vol] 136 mmol/L 135 - 145 mmol/L [facility] Urea nitrogen [Mass/Vol] 21 mg/dL High 7 - 17 mg/dL [facility] CBC W Auto Differential pane l (Bld)Ordered By: Radha Rain on 05-13-2023 Basophils (Bld) [#/Vol] 0.1 10*3/uL 0.0 - 0.2 10*3/uL [facility] Basophils/100 WBC (Bld) 1.0 % 0.0 - 2.0 % [facility] Eosinophils (Bld) [#/Vol] 0.1 10*3/uL 0.0 - 0.5 10*3/uL [facility] Eosinophils/100 WBC (Bld) 1.8 % 1.0 - 6.0 % [facility] Erythrocyte distribution width (RBC) [Ratio] 14.9 % High 11.5 - 14.5 % [facility] Hematocrit (Bld) [Volume fraction] 38.6 % 35.0 - 47.0 % [facility] Hemoglobin (Bld) [Mass/Vol] 12.9 g/dL 11.7 - 16.0 g/dL [facility] Immature granulocytes (Bld) [#/Vol] 0.1 10*3/uL High NINF - 0.0 10*3/uL [facility] Immature granulocytes/100 WBC (Bld) 1.6 % High NINF - 0.0 % [facility] Interpretation and review of laboratory results Abnormal [facility] Lymphocytes (Bld) [#/Vol] 0.9 10*3/uL Low 1.0 - 4.3 10*3/uL [facility] Lymphocytes/100 WBC (Bld) 17.0 % Low 20.0 - 40.0 % [facility] MCH (RBC) [Entitic mass] 31.2 pg 26.0 - 34.0 pg [facility] MCHC (RBC) [Mass/Vol] 33.4 % 32.0 - 36.0 % [facility] MCV (RBC) [Entitic vol] 93.5 fL 80.0 - 98.0 fL [facility] Monocytes (Bld) [#/Vol] 0.2 10*3/uL 0.0 - 0.8 10*3/uL [facility] Monocytes/100 WBC (Bld) 3.2 % 2.0 - 10.0 % [facility] Neutrophils (Bld) [#/Vol] 3.8 10*3/uL 1.8 - 7.0 10*3/uL [facility] [facility] Neutrophils/100 WBC (Bld) 75.4 % 40.0 - 80.0 % [facility] Platelet mean volume (Bld) [Entitic vol] 9.9 fL 7.4 - 12.4 fL [facility] Comment on above: MPV is a calculated measurement using platelet volume ratio Platelets (Bld) [#/Vol] 218 10*3/uL 140 - 440 10*3/uL [facility] RBC (Bld) [#/Vol] 4.13 10*6/uL 3.8 - 5.20 10*6/uL [facility] WBC (Bld) [#/Vol] 5.1 10*3/uL 3.6 - 10.7 10*3/uL [facility] Comprehensive metabolic 1998 panelon 05-13-2023 Albumin [Mass/Vol] 4.0 g/dL 3.5 - 5.0 g/dL [facility] ALP [Catalytic activity/Vol] 89 U/L 38 - 126 U/L [facility] ALT [Catalytic activity/Vol] 36 U/L High 0 - 34 U/L [facility] Anion gap [Moles/Vol] 8 mmol/L 3 - 13 mmol/L [facility] AST [Catalytic activity/Vol] 37 U/L 15 - 46 U/L [facility] Bilirubin [Mass/Vol] 0.5 mg/dL 0.2 - 1 .3 mg/dL [facility] Calcium [Mass/Vol] 8.5 mg/dL 8.4 - 10. 4 mg/dL [facility] Chloride [Moles/Vol] 105 mmol/L 98 - 10 7 mmol/L [facility] CO2 [Moles/Vol] 24 mmol/L 22 - 30 mmol/L [facility] Creatinine [Mass/Vol] 0.72 mg/dL 0.52 - 1.04 mg/dL [facility] GFR/1.73 sq M.predicted MDRD (S/P/Bld) [Vol rate/Area] 86.2 mL/min/{1.73_m2} - PINF [email or web address] Comment on above: Calculation based on the Chronic Kidney Disease Epidemiology Collaboration (CKD-EPI) equation refit without adjustment for race Glucose [Mass/Vol] 150 mg/dL High 70 - 100 mg/dL [facility] Interpretation and review of laboratory results Abnormal [facility] Potassium [Moles/Vol] 3.6 mmol/L 3.5 - 5.1 mmol/L [email or web address] Protein [Mass/Vol] 6.7 g/dL 6.3 - 8.2 g/dL [facility] [email or web address] Sodium [Moles/Vol] 137 mmol/L 135 - 145 mmol/L [facility] Urea nitrogen [Mass/Vol] 19 mg/dL High 7 - 17 mg/dL [facility] CBC W Auto Differential pane l (Bld)Ordered By: Radha Rain on 05-06-2023 Basophils (Bld) [#/Vol] 0.0 10*3/uL 0.0 - 0.2 10*3/uL [facility] [email or web address] Basophils/100 WBC (Bld) 0.9 % 0.0 - 2.0 % [facility] Eosinophils (Bld) [#/Vol] 0.1 10*3/uL 0.0 - 0.5 10*3/uL [facility] [email or web address] Eosinophils/100 WBC (Bld) 2.8 % 1.0 - 6.0 % [facility] Erythrocyte distribution width (RBC) [Ratio] 14.6 % High 11.5 - 14.5 % [facility] Hematocrit (Bld) [Volume fraction] 39.2 % 35.0 - 47.0 % [facility] Hemoglobin (Bld) [Mass/Vol] 13.0 g/dL 11.7 - 16.0 g/dL [facility] Immature granulocytes (Bld) [#/Vol] 0.1 10*3/uL High NINF - 0.0 10*3/uL [facility] [email or web address] Immature granulocytes/100 WBC (Bld) 1.7 % High NINF - 0.0 % [facility] Interpretation and review of laboratory results Abnormal [facility] Lymphocytes (Bld) [#/Vol] 0.8 10*3/uL Low 1.0 - 4.3 10*3/uL [facility] [email or web address] Lymphocytes/100 WBC (Bld) 18.0 % Low 20.0 - 40.0 % [facility] MCH (RBC) [Entitic mass] 31.1 pg 26.0 - 34.0 pg [facility] MCHC (RBC) [Mass/Vol] 33.2 % 32.0 - 36.0 % [facility] MCV (RBC) [Entitic vol] 93.8 fL 80.0 - 98.0 fL [facility] Monocytes (Bld) [#/Vol] 0.3 10*3/uL 0.0 - 0.8 10*3/uL [facility] Monocytes/100 WBC (Bld) 5.4 % 2.0 - 10.0 % [facility] Neutrophils (Bld) [#/Vol] 3.3 10*3/uL 1.8 - 7.0 10*3/uL [facility] Neutrophils/100 WBC (Bld) 71.2 % 40.0 - 80.0 % [facility] Platelet mean volume (Bld) [Entitic vol] 10.0 fL 7.4 - 12.4 fL [facility] Comment on above: MPV is a calculated measurement using platelet volume ratio Platelets (Bld) [#/Vol] 184 10*3/uL 140 - 440 10*3/uL [facility] RBC (Bld) [#/Vol] 4.18 10*6/uL 3.8 - 5.20 10*6/uL [facility] WBC (Bld) [#/Vol] 4.7 10*3/uL 3.6 - 10.7 10*3/uL [facility] Comprehensive metabolic 1998 panelon 05-06-2023 Albumin [Mass/Vol] 3.9 g/dL 3.5 - 5.0 g/dL [facility] ALP [Catalytic activity/Vol] 80 U/L 38 - 126 U/L [facility] ALT [Catalytic activity/Vol] 40 U/L High 0 - 34 U/L [facility] Anion gap [Moles/Vol] 9 mmol/L 3 - 13 mmol/L [facility] AST [Catalytic activity/Vol] 36 U/L 15 - 46 U/L [facility] Bilirubin [Mass/Vol] 0.5 mg/dL 0.2 - 1 .3 mg/dL [facility] Calcium [Mass/Vol] 8.6 mg/dL 8.4 - 10. 4 mg/dL [facility] Chloride [Moles/Vol] 105 mmol/L 98 - 10 7 mmol/L [facility] CO2 [Moles/Vol] 24 mmol/L 22 - 30 mmol/L [facility] Creatinine [Mass/Vol] 0.61 mg/dL 0.52 - 1.04 mg/dL [facility] GFR/1.73 sq M.predicted MDRD (S/P/Bld) [Vol rate/Area] - PINF [facility] Comment on above: Calculation based on the Chronic Kidney Disease Epidemiology Collaboration (CKD-EPI) equation refit without adjustment for race Glucose [Mass/Vol] 125 mg/dL High 70 - 100 mg/dL [facility] Interpretation and review of laboratory results Abnormal [facility] Potassium [Moles/Vol] 3.8 mmol/L 3.5 - 5.1 mmol/L [facility] Protein [Mass/Vol] 6.7 g/dL 6.3 - 8.2 g/dL [facility] Sodium [Moles/Vol] 139 mmol/L 135 - 145 mmol/L [facility] Urea nitrogen [Mass/Vol] 22 mg/dL High 7 - 17 mg/dL [facility] CBC W Auto Differential pane l (Bld)Ordered By: Annie Montalvo on 04-29-2023 Basophils (Bld) [#/Vol] 0.0 10*3/uL 0.0 - 0.2 10*3/uL [facility] Basophils/100 WBC (Bld) 0.6 % 0.0 - 2.0 % [facility] Eosinophils (Bld) [#/Vol] 0.1 10*3/uL 0.0 - 0.5 10*3/uL [facility] Eosinophils/100 WBC (Bld) 1.8 % 1.0 - 6.0 % [facility] Erythrocyte distribution width (RBC) [Ratio] 14.5 % 11.5 - 14.5 % [facility] Hematocrit (Bld) [Volume fraction] 40.1 % 35.0 - 47.0 % [facility] Hemoglobin (Bld) [Mass/Vol] 13.4 g/dL 11.7 - 16.0 g/dL [facility] Immature granulocytes (Bld) [#/Vol] 0.1 10*3/uL High NINF - 0.0 10*3/uL [facility] Immature granulocytes/100 WBC (Bld) 1.3 % High NINF - 0.0 % [facility] Interpretation and review of laboratory results Abnormal [facility] Lymphocytes (Bld) [#/Vol] 1.3 10*3/uL 1.0 - 4.3 10*3/uL [facility] Lymphocytes/100 WBC (Bld) 18.5 % Low 20.0 - 40.0 % [facility] MCH (RBC) [Entitic mass] 31.2 pg 26.0 - 34.0 pg [facility] MCHC (RBC) [Mass/Vol] 33.4 % 32.0 - 36.0 % [facility] MCV (RBC) [Entitic vol] 93.3 fL 80.0 - 98.0 fL [facility] Monocytes (Bld) [#/Vol] 0.3 10*3/uL 0.0 - 0.8 10*3/uL [facility] Monocytes/100 WBC (Bld) 4.4 % 2.0 - 10.0 % [facility] Neutrophils (Bld) [#/Vol] 5.0 10*3/uL 1.8 - 7.0 10*3/uL [facility] Neutrophils/100 WBC (Bld) 73.4 % 40.0 - 80.0 % [facility] Platelet mean volume (Bld) [Entitic vol] 9.7 fL 7.4 - 12.4 fL [facility] Comment on above: MPV is a calculated measurement using platelet volume ratio Platelets (Bld) [#/Vol] 211 10*3/uL 140 - 440 10*3/uL [facility] RBC (Bld) [#/Vol] 4.30 10*6/uL 3.8 - 5.20 10*6/uL [facility] WBC (Bld) [#/Vol] 6.8 10*3/uL 3.6 - 10.7 10*3/uL [facility] Comprehensive metabolic 1998 panelon 04-29-2023 Albumin [Mass/Vol] 4.1 g/dL 3.5 - 5.0 g/dL [facility] ALP [Catalytic activity/Vol] 99 U/L 38 - 126 U/L [facility] ALT [Catalytic activity/Vol] 33 U/L 0 - 34 U/L [facility] Anion gap [Moles/Vol] 9 mmol/L 3 - 13 mmol/L [facility] AST [Catalytic activity/Vol] 38 U/L 15 - 46 U/L [facility] Bilirubin [Mass/Vol] 0.4 mg/dL 0.2 - 1 .3 mg/dL [facility] Calcium [Mass/Vol] 8.3 mg/dL Low 8.4 - 10. 4 mg/dL [facility] Chloride [Moles/Vol] 105 mmol/L 98 - 10 7 mmol/L [facility] CO2 [Moles/Vol] 24 mmol/L 22 - 30 mmol/L [facility] Creatinine [Mass/Vol] 0.59 mg/dL 0.52 - 1.04 mg/dL [facility] GFR/1.73 sq M.predicted MDRD (S/P/Bld) [Vol rate/Area] - PINF [facility] Comment on above: Calculation based on the Chronic Kidney Disease Epidemiology Collaboration (CKD-EPI) equation refit without adjustment for race Glucose [Mass/Vol] 121 mg/dL High 70 - 100 mg/dL [facility] Interpretation and review of laboratory results Abnormal [facility] Potassium [Moles/Vol] 4.0 mmol/L 3.5 - 5.1 mmol/L [facility] Protein [Mass/Vol] 7.0 g/dL 6.3 - 8.2 g/dL [facility] Sodium [Moles/Vol] 139 mmol/L 135 - 145 mmol/L [facility] Urea nitrogen [Mass/Vol] 22 mg/dL High 7 - 17 mg/dL [facility] CBC W Auto Differential pane l (Bld)Ordered By: Radha Rain on 04-22-2023 Basophils (Bld) [#/Vol] 0.0 10*3/uL 0.0 - 0.2 10*3/uL [facility] Basophils/100 WBC (Bld) 0.8 % 0.0 - 2.0 % [facility] Eosinophils (Bld) [#/Vol] 0.1 10*3/uL 0.0 - 0.5 10*3/uL [facility] Eosinophils/100 WBC (Bld) 1.5 % 1.0 - 6.0 % [facility] Erythrocyte distribution width (RBC) [Ratio] 14.3 % 11.5 - 14.5 % [facility] Hematocrit (Bld) [Volume fraction] 39.2 % 35.0 - 47.0 % [facility] Hemoglobin (Bld) [Mass/Vol] 12.9 g/dL 11.7 - 16.0 g/dL [facility] Immature granulocytes (Bld) [#/Vol] 0.1 10*3/uL High NINF - 0.0 10*3/uL [facility] Immature granulocytes/100 WBC (Bld) 1.1 % High NINF - 0.0 % [facility] Interpretation and review of laboratory results Abnormal [facility] Lymphocytes (Bld) [#/Vol] 1.1 10*3/uL 1.0 - 4.3 10*3/uL [facility] Lymphocytes/100 WBC (Bld) 23.4 % 20.0 - 40.0 % [facility] MCH (RBC) [Entitic mass] 30.9 pg 26.0 - 34.0 pg [facility] MCHC (RBC) [Mass/Vol] 32.9 % 32.0 - 36.0 % [facility] MCV (RBC) [Entitic vol] 93.8 fL 80.0 - 98.0 fL [facility] Monocytes (Bld) [#/Vol] 0.5 10*3/uL 0.0 - 0.8 10*3/uL [facility] Monocytes/100 WBC (Bld) 10.0 % 2.0 - 10.0 % [facility] Neutrophils (Bld) [#/Vol] 3.0 10*3/uL 1.8 - 7.0 10*3/uL [facility] Neutrophils/100 WBC (Bld) 63.2 % 40.0 - 80.0 % [facility] Platelet mean volume (Bld) [Entitic vol] 9.3 fL 7.4 - 12.4 fL [facility] Comment on above: MPV is a calculated measurement using platelet volume ratio Platelets (Bld) [#/Vol] 223 10*3/uL 140 - 440 10*3/uL [facility] RBC (Bld) [#/Vol] 4.18 10*6/uL 3.8 - 5.20 10*6/uL [facility] WBC (Bld) [#/Vol] 4.7 10*3/uL 3.6 - 10.7 10*3/uL [facility] Comprehensive metabolic 1998 panelon 04-22-2023 Albumin [Mass/Vol] 3.9 g/dL 3.5 - 5.0 g/dL [facility] ALP [Catalytic activity/Vol] 100 U/L 38 - 126 U/L [facility] ALT [Catalytic activity/Vol] 36 U/L High 0 - 34 U/L [facility] Anion gap [Moles/Vol] 3 mmol/L 3 - 13 mmol/L [facility] AST [Catalytic activity/Vol] 37 U/L 15 - 46 U/L [facility] Bilirubin [Mass/Vol] 0.4 mg/dL 0.2 - 1 .3 mg/dL [facility] Calcium [Mass/Vol] 8.6 mg/dL 8.4 - 10. 4 mg/dL [facility] Chloride [Moles/Vol] 107 mmol/L 98 - 10 7 mmol/L [facility] CO2 [Moles/Vol] 28 mmol/L 22 - 30 mmol/L [facility] Creatinine [Mass/Vol] 0.56 mg/dL 0.52 - 1.04 mg/dL [facility] GFR/1.73 sq M.predicted MDRD (S/P/Bld) [Vol rate/Area] - PINF [facility] Comment on above: Calculation based on the Chronic Kidney Disease Epidemiology Collaboration (CKD-EPI) equation refit without adjustment for race Glucose [Mass/Vol] 139 mg/dL High 70 - 100 mg/dL [facility] Interpretation and review of laboratory results Abnormal [facility] Potassium [Moles/Vol] 3.8 mmol/L 3.5 - 5.1 mmol/L [facility] Protein [Mass/Vol] 6.7 g/dL 6.3 - 8.2 g/dL [facility] Sodium [Moles/Vol] 138 mmol/L 135 - 145 mmol/L [facility] Urea nitrogen [Mass/Vol] 17 mg/dL 7 - 17 mg/dL [facility] CBC W Auto Differential pane l (Bld)Ordered By: Radha Rain on 04-08-2023 Basophils (Bld) [#/Vol] 0.0 10*3/uL 0.0 - 0.2 10*3/uL [facility] Basophils (Bld) [#/Vol] 0 10*3/uL 0.0 - 0.2 10*3/uL [facility] Basophils/100 WBC (Bld) 0.9 % 0.0 - 2.0 % [facility] Eosinophils (Bld) [#/Vol] 0.1 10*3/uL 0.0 - 0.5 10*3/uL [facility] Eosinophils/100 WBC (Bld) 2.6 % 1.0 - 6.0 % [facility] Erythrocyte distribution width (RBC) [Ratio] 14.0 % 11.5 - 14.5 % [facility] Erythrocyte distribution width (RBC) [Ratio] 14 % 11.5 - 14.5 % [facility] Hematocrit (Bld) [Volume fraction] 39.1 % 35.0 - 47.0 % [facility] Hemoglobin (Bld) [Mass/Vol] 12.8 g/dL 11.7 - 16.0 g/dL [facility] Immature granulocytes (Bld) [#/Vol] 0.1 10*3/uL High NINF - 0.0 10*3/uL [facility] Immature granulocytes/100 WBC (Bld) 1.9 % High NINF - 0.0 % [facility] Interpretation and review of laboratory results Abnormal [facility] Lymphocytes (Bld) [#/Vol] 0.9 10*3/uL Low 1.0 - 4.3 10*3/uL [facility] Lymphocytes/100 WBC (Bld) 18.6 % Low 20.0 - 40.0 % [facility] MCH (RBC) [Entitic mass] 31.0 pg 26.0 - 34.0 pg [facility] MCH (RBC) [Entitic mass] 31 pg 26.0 - 34.0 pg [facility] MCHC (RBC) [Mass/Vol] 32.7 % 32.0 - 36.0 % [facility] MCV (RBC) [Entitic vol] 94.7 fL 80.0 - 98.0 fL [facility] Monocytes (Bld) [#/Vol] 0.2 10*3/uL 0.0 - 0.8 10*3/uL [facility] Monocytes/100 WBC (Bld) 3.2 % 2.0 - 10.0 % [facility] Neutrophils (Bld) [#/Vol] 3.4 10*3/uL 1.8 - 7.0 10*3/uL [facility] Neutrophils/100 WBC (Bld) 72.8 % 40.0 - 80.0 % [facility] Platelet mean volume (Bld) [Entitic vol] 10.1 fL 7.4 - 12.4 fL [facility] Comment on above: MPV is a calculated measurement using platelet volume ratio Platelets (Bld) [#/Vol] 186 10*3/uL 140 - 440 10*3/uL [facility] RBC (Bld) [#/Vol] 4.13 10*6/uL 3.8 - 5.20 10*6/uL [facility] WBC (Bld) [#/Vol] 4.7 10*3/uL 3.6 - 10.7 10*3/uL [facility] Comprehensive metabolic 1998 panelon 04-08-2023 Albumin [Mass/Vol] 4.0 g/dL 3.5 - 5.0 g/dL [facility] Albumin [Mass/Vol] 4 g/dL 3.5 - 5.0 g/dL [facility] ALP [Catalytic activity/Vol] 86 U/L 38 - 126 U/L [facility] ALT [Catalytic activity/Vol] 42 U/L High 0 - 34 U/L [facility] Anion gap [Moles/Vol] 2 mmol/L Low 3 - 13 mmol/L [facility] AST [Catalytic activity/Vol] 37 U/L 15 - 46 U/L [facility] Bilirubin [Mass/Vol] 0.6 mg/dL 0.2 - 1 .3 mg/dL [facility] Calcium [Mass/Vol] 8.7 mg/dL 8.4 - 10. 4 mg/dL [facility] Chloride [Moles/Vol] 106 mmol/L 98 - 10 7 mmol/L [facility] CO2 [Moles/Vol] 30 mmol/L 22 - 30 mmol/L [facility] Creatinine [Mass/Vol] 0.60 mg/dL 0.52 - 1.04 mg/dL [facility] Creatinine [Mass/Vol] 0.6 mg/dL 0.52 - 1.04 mg/dL [facility] GFR/1.73 sq M.predicted MDRD (S/P/Bld) [Vol rate/Area] - PINF [facility] Comment on above: Calculation based on the Chronic Kidney Disease Epidemiology Collaboration (CKD-EPI) equation refit without adjustment for race Glucose [Mass/Vol] 88 mg/dL 70 - 100 mg/dL [facility] Interpretation and review of laboratory results Abnormal [facility] Potassium [Moles/Vol] 4.1 mmol/L 3.5 - 5.1 mmol/L [facility] Protein [Mass/Vol] 6.6 g/dL 6.3 - 8.2 g/dL [facility] Sodium [Moles/Vol] 138 mmol/L 135 - 145 mmol/L [facility] Urea nitrogen [Mass/Vol] 21 mg/dL High 7 - 17 mg/dL [facility] CBC W Auto Differential pane l (Bld)Ordered By: Radha Rain on 04-01-2023 Basophils (Bld) [#/Vol] 0.0 10*3/uL 0.0 - 0.2 10*3/uL [facility] Basophils/100 WBC (Bld) 0.1 % 0.0 - 2.0 % [facility] Eosinophils (Bld) [#/Vol] 0.0 10*3/uL 0.0 - 0.5 10*3/uL [facility] Eosinophils/100 WBC (Bld) 0.0 % Low 1.0 - 6.0 % [facility] Erythrocyte distribution width (RBC) [Ratio] 13.8 % 11.5 - 14.5 % [facility] Hematocrit (Bld) [Volume fraction] 42.8 % 35.0 - 47.0 % [facility] Hemoglobin (Bld) [Mass/Vol] 14.1 g/dL 11.7 - 16.0 g/dL [facility] Immature granulocytes (Bld) [#/Vol] 0.0 10*3/uL NINF - 0.0 10*3/uL [facility] Immature granulocytes/100 WBC (Bld) 0.3 % High NINF - 0.0 % [facility] Interpretation and review of laboratory results Abnormal [facility] Lymphocytes (Bld) [#/Vol] 0.7 10*3/uL Low 1.0 - 4.3 10*3/uL [facility] Lymphocytes/100 WBC (Bld) 5.2 % Low 20.0 - 40.0 % [facility] MCH (RBC) [Entitic mass] 30.7 pg 26.0 - 34.0 pg [facility] MCHC (RBC) [Mass/Vol] 32.9 % 32.0 - 36.0 % [facility] MCV (RBC) [Entitic vol] 93.2 fL 80.0 - 98.0 fL [facility] Monocytes (Bld) [#/Vol] 0.4 10*3/uL 0.0 - 0.8 10*3/uL [facility] Monocytes/100 WBC (Bld) 2.6 % 2.0 - 10.0 % [facility] Neutrophils (Bld) [#/Vol] 12.3 10*3/uL High 1.8 - 7.0 10*3/uL [facility] Neutrophils/100 WBC (Bld) 91.8 % High 40.0 - 80.0 % [facility] Platelet mean volume (Bld) [Entitic vol] 9.8 fL 7.4 - 12.4 fL [facility] Comment on above: MPV is a calculated measurement using platelet volume ratio Platelets (Bld) [#/Vol] 221 10*3/uL 140 - 440 10*3/uL [facility] RBC (Bld) [#/Vol] 4.59 10*6/uL 3.8 - 5.20 10*6/uL [facility] WBC (Bld) [#/Vol] 13.4 10*3/uL High 3.6 - 10.7 10*3/uL [facility] Comprehensive metabolic 1998 panelon 04-01-2023 Albumin [Mass/Vol] 4.5 g/dL 3.5 - 5.0 g/dL [facility] ALP [Catalytic activity/Vol] 98 U/L 38 - 126 U/L [facility] ALT [Catalytic activity/Vol] 20 U/L 0 - 34 U/L [facility] Anion gap [Moles/Vol] 8 mmol/L 3 - 13 mmol/L [facility] AST [Catalytic activity/Vol] 28 U/L 15 - 46 U/L [facility] Bilirubin [Mass/Vol] 0.5 mg/dL 0.2 - 1 .3 mg/dL [facility] Calcium [Mass/Vol] 9.0 mg/dL 8.4 - 10. 4 mg/dL [facility] Chloride [Moles/Vol] 107 mmol/L 98 - 10 7 mmol/L [facility] CO2 [Moles/Vol] 23 mmol/L 22 - 30 mmol/L [facility] Creatinine [Mass/Vol] 0.55 mg/dL 0.52 - 1.04 mg/dL [facility] GFR/1.73 sq M.predicted MDRD (S/P/Bld) [Vol rate/Area] - PINF [email or web address] Comment on above: Calculation based on the Chronic Kidney Disease Epidemiology Collaboration (CKD-EPI) equation refit without adjustment for race Glucose [Mass/Vol] 196 mg/dL High 70 - 100 mg/dL [facility] Interpretation and review of laboratory results Abnormal [email or web address] Potassium [Moles/Vol] 3.9 mmol/L 3.5 - 5.1 mmol/L [email or web address] Protein [Mass/Vol] 7.5 g/dL 6.3 - 8.2 g/dL [facility] Sodium [Moles/Vol] 138 mmol/L 135 - 145 mmol/L [facility] Urea nitrogen [Mass/Vol] 21 mg/dL High 7 - 17 mg/dL [facility] US Heart TransthoracicOrdere d By: Miller Kim on 03-26-2023 AR Max Velocity PISA 3.9 m/s [facility] [employer] Phone: AR PHT 578.7 ms [facility] [email or web address] Work Phone: E/E' Lateral 9.00 [facility] [employer] Phone: E/E' Ratio (Averaged) 9.64 [email or web address] Work Phone: E/E' Septal 10.29 [facility] [employer] Phone: EF BP 63 % 55 - 100 % [facility] [employer] Phone: Est. RA Pressure 3 mmHg [facility] Work Phone: Fractional Shortening 2D 35 % 28 - 44 % [email or web address] [email or web address] Work Phone: Global Longitudinal Strain -17.0 % [facility] [employer] Phone: Interpretation and review of laboratory results Abnormal [facility] [employer] Phone: IVC Diameter 1.6 cm [email or web address] [email or web address] Work Phone: IVSd 0.9 cm 0.6 - 0.9 cm [facility] [employer] Phone: LA Volume 2C 71 mL Abnormal 22 - 52 mL [facility] [employer] Phone: LA Volume 4C 37 mL 22 - 52 mL [facility] Work Phone: LA Volume A/L 55 mL [facility] Work Phone: LA Volume Index 2C 36 mL/m2 Abnormal 16 - 34 mL/m2 [facility] Work Phone: [phone] LA Volume Index 4C 19 mL/m2 16 - 34 mL/m2 [facility] Work Phone: LA Volume Index A/L 28 mL/m2 16 - 34 mL/m2 [facility] Work Phone: [phone] LV E' Lateral Velocity 8 cm/s [facility] Work Phone: [phone] LV E' Septal Velocity 7 cm/s [facility] Work Phone: LV EDV A2C 70 mL [facility] Work Phone: LV EDV A4C 92 mL [facility] Work Phone: LV EDV BP 81 mL 56 - 104 mL [facility] Work Phone: LV EDV Index A2C 35 mL/m2 [facility] [facility] Work Phone: LV EDV Index A4C 46 mL/m2 [facility] Work Phone: [phone] LV EDV Index BP 41 mL/m2 [facility] Work Phone: LV Ejection Fraction A2C 59 % [facility] Work Phone: LV Ejection Fraction A4C 67 % [facility] Work Phone: [phone] LV ESV A2C 29 mL [facility] Work Phone: LV ESV A4C 31 mL [facility] Work Phone: LV ESV BP 30 mL 19 - 49 mL [facility] Work Phone: LV ESV Index A2C 15 mL/m2 [facility] Work Phone: LV ESV Index A4C 16 mL/m2 [facility] Work Phone: LV ESV Index BP 15 mL/m2 [facility] Work Phone: LV Mass 2D 117.9 g 67 - 162 g [facility] [employer] Work Phone: [phone] LV Mass 2D Index 59.2 g/m2 43 - 95 g/m2 [facility] [employer] Work Phone: [phone] LV RWT Ratio 0.30 [facility] [employer] Work Phone: [phone] LVIDd 4.6 cm 3.9 - 5.3 cm [facility] [employer] Work Phone: [phone] LVIDd Index 2.31 cm/m2 [facility] [employer] Work Phone: [phone] LVIDs 3.0 cm [facility] [employer] Work Phone: [phone] LVIDs Index 1.51 cm/m2 [facility] [employer] Work Phone: LVOT Area 2.8 cm2 [facility] [employer] Work Phone: LVOT Cardiac Output 4.1 liter/minute [facility] [employer] Work Phone: [phone] LVOT Diameter 1.9 cm [facility] [employer] Work Phone: LVOT Mean Gradient 2 mmHg [facility] [employer] Work Phone: [phone] LVOT Peak Gradient 3 mmHg [facility] [employer] Work Phone: LVOT Peak Velocity 0.9 m/s [facility] [employer] Work Phone: [phone] LVOT Stroke Volume Index 28.5 mL/m2 [facility] [employer] Work [phone] LVOT SV 56.7 ml [facility] [employer] Work Phone: [phone] LVOT VTI 20.0 cm [facility] [employer] Work Phone: [phone] LVPWd 0.7 cm 0.6 - 0.9 cm [facility] [employer] Work Phone: [phone] MV A Velocity 1.10 m/s [facility] [employer] Work Phone: MV E Velocity 0.72 m/s [facility] Work Phone: MV E Wave Deceleration Time 198.7 ms [employer] Work Phone: MV E/A 0.65 [facility] Work Phone: RV Free Wall Peak S' 11 cm/s [facility] [employer] Work Phone: TAPSE 2.4 cm 1.7 cm [facility] Work Phone: [facility] Work Phone: US Heart Transthoracicon Left Ventricle: Left ventricle size is normal. Normal wall thickness. Normal left ventricular systolic function. EF by 2D Simpsons Biplane is 63%. Global longitudinal strain is normal with a value of -17.0%. Normal wall motion. Right Ventricle: Right ventricle size is normal. Normal systolic function. Aortic Valve: Mild (1+) regurgitation. Left Ventricle Left ventricle size is normal. Normal wall thickness. Normal left ventricular systolic function. EF by 2D Simpsons Biplane is 63%. Global longitudinal strain is normal with a value of -17.0%. Normal wall motion. Right Ventricle Right ventricle size is normal. Normal systolic function. Left Atrium Left atrium size is normal. Right Atrium Right atrium size is normal. IVC/SVC IVC diameter is normal and decreases greater than 50% during inspiration; therefore the estimated right atrial pressure is normal (~3 mmHg). Mitral Valve Valve structure is normal. Trace regurgitation. No stenosis noted. Tricuspid Valve Valve structure is normal. Trace regurgitation. Unable to assess RVSP due to insignificant tricuspid regurgitation. Aortic Valve Trileaflet. No cusp calcification. Mild (1+) regurgitation. No stenosis. Pulmonic Valve The pulmonic valve visualization is suboptimal but appears to be functioning normally. Trace regurgitation. Ascending Aorta Normal sized sinuses of Valsalva and ascending aorta. Pericardium No pericardial effusion. Septum No interatrial shunt visualized on color Doppler. Pulmonary Artery Pulmonary artery was not well visualized. Study Details Image quality: fair. Additional technique includes myocardial strain. Blood pressure: 126/78 mmHg. No contrast was given. CV CPACS US LOC BREAST LEFTon 023 [facility] BNPon 02-06-2023 Natriuretic peptide B (Bld) [Mass/Vol] 29 pg/mL Normal 0 - 99 [facility] Comment on above: Result Comment: . <1 00 pg/mL - Heart failure unlikely 100-299 pg/mL - Intermediate probability of acute heart . failure exacerbation. Correlate with clinical . context and patient history. >=300 pg/mL - Heart Failure likely. Correlate with clinical . context and patient history. Biotin interference may cause falsely decreased results. Patients taking a Biotin dose of up to 5 mg/day should refrain from taking Biotin for 24 hours before sample collection. Providers may contact their local laboratory for further information. Performed By: #### B NP2 #### [facility] [address] [place] [address] CBC AND DIFFERENTIALon 02-06 % AUTOMATED IMMATURE GRAN 0.3 % Normal 0.0 - 0.9 [facility] Comment on above: Result Comment: Charo ture Granulocyte Count (IG) includes promyelocytes, myelocytes and metamyelocytes but does not include bands. Percent differential counts (%) should be interpreted in the context of the absolute cell counts (cells/L). Performed By: #### C BCDF #### [facility] [address] [place] [address] Basophils (Bld) [#/Vol] 0.03 10*3/uL Normal 0.00 - 0.[address] [facility] Comment on above: Performed By: #### C BCDF #### [facility] [address] [place] [address] Basophils/100 WBC (Bld) 0.4 % Normal 0.0 - 2.0 [facility] Comment on above: Performed By: #### C BCDF #### [facility] [address] [place] [address] Eosinophils (Bld) [#/Vol] 0.11 10*3/uL Normal 0.00 - 0.40 [facility] Comment on above: Performed By: #### C BCDF #### [facility] [address] [place] [address] Eosinophils/100 WBC (Bld) 1.6 % Normal 0.0 - 6.0 [facility] Comment on above: Performed By: #### C BCDF #### [facility] [address] [place] [address] Erythrocyte distribution width (RBC) [Ratio] 14.0 % Normal 11.5 - 14.5 [facility] Comment on above: Performed By: #### C BCDF #### [facility] [address] [place] [address] Hematocrit (Bld) [Volume fraction] 44.5 % Normal 36.0 - 46.0 [facility] Comment on above: Performed By: #### C BCDF #### [facility] [address] [place] [address] Hemoglobin (Bld) [Mass/Vol] 14.3 g/dL Normal 12.0 - 16.0 [facility] Comment on above: Performed By: #### C BCDF #### [facility] [address] [place] [address] Lymphocytes (Bld) [#/Vol] 1.71 10*3/uL Normal 0.80 - 3.00 [facility] Comment on above: Performed By: #### C BCDF #### [facility] [address] [place] [address] Lymphocytes/100 WBC (Bld) 24.3 % Normal 13.0 - 44.0 [facility] Comment on above: Performed By: #### C BCDF #### [facility] [address] [place] [address] MCHC (RBC) [Mass/Vol] 32.1 g/dL Normal 32.0 - 36.0 [facility] Comment on above: Performed By: #### C BCDF #### [facility] [address] [place] [address] MCV (RBC) [Entitic vol] 95 fL Normal 80 - 100 U [facility] Comment on above: Performed By: #### C BCDF #### [facility] [address] [place] [address] Monocytes (Bld) [#/Vol] 0.61 10*3/uL Normal 0.05 - 0.[address] [facility] Comment on above: Performed By: #### C BCDF #### [facility] [address] [place] [address] Monocytes/100 WBC (Bld) 8.7 % Normal 2.0 - 10.0 [facility] Comment on above: Performed By: #### C BCDF #### [facility] [address] [place] [address] Neutrophils (Bld) [#/Vol] 4.56 10*3/uL Normal 1.60 - 5.50 [facility] Comment on above: Performed By: #### C BCDF #### [facility] [address] [place] [address] Neutrophils/100 WBC (Bld) 64.7 % Normal 40.0 - 80.0 [facility] Comment on above: Performed By: #### C BCDF #### [facility] [address] [place] [address] NUCLEATED RBC 0.0 /100 WBC Normal 0.0-0.0 [facility] Comment on above: Performed By: #### C BCDF #### [facility] [address] [place] [address] Platelets (Bld) [#/Vol] 243 10*3/uL Normal 150 - 450 [facility] Comment on above: Performed By: #### C BCDF #### [facility] [address] [place] [address] RBC 4.70 x10E12/L Normal 4.00 - 5.20 [facility] [place] Comment on above: Performed By: #### C BCDF #### [facility] [address] [place] [address] WBC (Bld) [#/Vol] 7.0 10*3/uL Normal 4.4 - 11.3 [facility] [place] Comment on above: Performed By: #### C BCDF #### [facility] [address] [place] [address] COMPREHENSIVE PANELon 2022 Albumin [Mass/Vol] 4.4 g/dL Normal 3.4 - 5.0 [facility] [place] Comment on above: Performed By: #### T HYDS #### [facility] [address] [place] [address] ALP [Catalytic activity/Vol] 84 U/L Normal 33 - 136 [facility] Comment on above: Performed By: #### T HYDS #### [facility] [address] [place] [address] ALT [Catalytic activity/Vol] 14 U/L Normal 7 - 45 [facility] Comment on above: Result Comment: Suzanne ents treated with Sulfasalazine may generate falsely decreased results for ALT. Performed By: #### T HYDS #### [facility] [address] [place] [address] Anion gap [Moles/Vol] 17 mmol/L Normal 10 - 20 [facility] Comment on above: Performed By: #### T HYDS #### [facility] [address] [place] [address] AST [Catalytic activity/Vol] 17 U/L Normal 9 - 39 [facility] Comment on above: Performed By: #### T HYDS #### [facility] [address] [place] [address] Bilirubin [Mass/Vol] 0.6 mg/dL Normal 0.0 - 1.2 [facility] Comment on above: Performed By: #### T HYDS #### [facility] [address] [place] [address] Calcium [Mass/Vol] 9.3 mg/dL Normal 8.6 - 10.6 [facility] [place] Comment on above: Performed By: #### T HYDS #### [facility] [address] [place] [address] Chloride [Moles/Vol] 104 mmol/L Normal 98 - 107 [facility] Comment on above: Performed By: #### T HYDS #### [facility] [address] [place] [address] Creatinine [Mass/Vol] 0.69 mg/dL Normal 0.50 - 1.05 [facility] Comment on above: Performed By: #### T HYDS #### [facility] [address] [place] [address] GFR/1.73 sq M.predicted among non-blacks MDRD (S/P/Bld) [Vol rate/Area] 89 mL/min/{1.73_m2} Normal >90 [facility] Comment on above: Result Comment: CALC ULATIONS OF ESTIMATED GFR ARE PERFORMED USING THE 2020 CKD-EPI STUDY REFIT EQUATION WITHOUT THE RACE VARIABLE FOR THE IDMS-TRACEABLE CREATININE METHODS. https://jasn.asnjournals.org/content/early/ASN.2020 606543 Performed By: #### T HYDS #### [facility] [address] [place] [address] Glucose [Mass/Vol] 83 mg/dL Normal 74 - 99 [facility] [place] Comment on above: Performed By: #### T HYDS #### [facility] [address] [place] [address] HCO3 (Bld) [Moles/Vol] 26 mmol/L Normal 21 - 32 [facility] Comment on above: Performed By: #### T HYDS #### [facility] [address] [place] [address] Potassium [Moles/Vol] 4.2 mmol/L Normal 3.5 - 5.3 [facility] Comment on above: Performed By: #### T HYDS #### [facility] [address] [place] [address] Protein [Mass/Vol] 7.0 g/dL Normal 6.4 - 8.2 [facility] [place] Comment on above: Performed By: #### T HYDS #### [facility] [address] [place] [address] Sodium [Moles/Vol] 143 mmol/L Normal 136 - 145 [facility] [place] Comment on above: Performed By: #### T HYDS #### [facility] [address] [place] [address] Urea nitrogen [Mass/Vol] 17 mg/dL Normal 6 - 23 [facility] Comment on above: Performed By: #### T HYDS #### [facility] [address] [place] [address] TSH WITH REFLEX TO FREE T4 I F ABNORMALon 02-06-2023 TSH Qn 2.70 m[IU]/L Normal 0.44 - 3.98 [facility] Comment on above: Result Comment: TSH testing is performed using different testing methodology at [facility] than at other [facility]. Direct result comparisons should only be made within the same method. Performed By: #### T HYDS #### [place] [address] [place] [address] UA MICROSCOPICon 02-06-2023 Mucus Ql (Urine sed) 1+ /LPF Normal [facility] Comment on above: Performed By: #### T HYDS #### [facility] [address] [place] [address] RBC 2 /HPF Normal 0-5 [facility] Comment on above: Performed By: #### T HYDS #### [facility] [address] [place] [address] SQUAMOUS EPITH. CELLS 3 /HPF Normal [facility] Comment on above: Performed By: #### T HYDS #### [facility] [address] [place] [address] WBC 6 /HPF Abnormal 0-5 [facility] Comment on above: Performed By: #### T HYDS #### [facility] [address] [place] [address] URINALYSISon 02-06-2023 Appearance (U) CLEAR Normal CLEAR [facility] [place] Comment on above: Performed By: #### U A #### [facility] [address] [place] [address] Bilirubin Ql (U) Negative Normal NEGATIVE [facility] Comment on above: Performed By: #### U A #### [facility] [address] [place] [address] Color (U) YELLOW Normal STRAW,YELLOW [facility] Comment on above: Performed By: #### U A #### [facility] [address] [place] [address] Glucose Ql (U) Negative Normal NEGATIVE [facility] [place] Comment on above: Performed By: #### U A #### [facility] [address] [place] [address] Hemoglobin Ql (U) Negative Normal NEGATIVE [facility] Comment on above: Performed By: #### U A #### [facility] [address] [place] [address] Ketones Ql (U) Negative Normal NEGATIVE [facility] [place] Comment on above: Performed By: #### U A #### [facility] [address] [place] [address] Leukocyte esterase Test strip Ql (U) LARGE (3+) Abnormal NEGATIVE [facility] Comment on above: Performed By: #### U A #### [facility] [address] [place] [address] Nitrite Ql (U) Negative Normal NEGATIVE [facility] [place] Comment on above: Performed By: #### U A #### [facility] [address] [place] [address] pH (U) 7.0 [pH] Normal 5.0 - 8.0 [facility] Comment on above: Performed By: #### U A #### [facility] [address] [place] [address] Protein Ql (U) Negative Normal NEGATIVE [facility] [place] Comment on above: Performed By: #### U A #### [facility] [address] [place] [address] Specific gravity (U) [Rel density] 1.011 Normal 1.005 - 1.035 [facility] Comment on above: Performed By: #### U A #### [facility] [address] [place] [address] Urobilinogen (U) [Mass/Vol] mg/dL Normal 0.0 - 1.9 [facility] Comment on above: Performed By: #### U A #### [facility] [address] [place] [address] CBC AND DIFFERENTIALon 02-05 Lab Specimen Source Normal [facility] Comment on above: Performed By: #### C BCDF #### [facility] [address] [place] [address] Performed By: #### U A #### [facility] [address] [place] [address] Performed By: #### B NP2 #### [facility] [address] [place] [address] Performed By: #### T HYDS #### [facility] [address] [place] [address] LEE DIAGNOSTIC LEFTon 2022 [facility] US BIOPSY BREAST LEFTon 08-0 [facility] LEE DIAG W SHIVA LEFTon 01-21 [facility] No Panel Informationon 01-21 [facility] Dermatopathologyon Dermatopathology Name MADIHA PERALES Pathologist: ARCHIE MORENO MD Date of Procedure: 10/30/2022 Date Received: 10/31/2022 Date Reported 11/01/2022 Submitting Physician: DARA SORENSEN DO Location: Other External # FINAL DIAGNOSIS SKIN, MID UPPER BACK, BIOPSY: INFLAMED SEBORRHEIC KERATOSIS, PRESENT ON THE DEEP AND PERIPHERAL MARGIN. Electronically Signed Out by ARCHIE MORENO M.D. Electronically Signed Out By ARCHIE MORENO MD/[facility] By the signature on this report, the individual or group listed as making the Final Interpretation/Diagn osis certifies that they have reviewed this case. Diagnostic interpretation performed at Dermatopath Lab [address] [place] [address], [facility] [address] Microscopic Description: Microscopic analysis shows a papillomatous proliferation of bland keratinocytes with hyperkeratosis and acanthosis. Inflammatory cells are present in the dermis and infiltrate the keratosis. Clinical History: EPIC Order Description: DERMPATH LAB- DERMATOPATHOLOGY Clinical Diagnosis History: L81.9-Pigmented skin lesion suspicious for malignant neoplasm Clinical History/Special Request: enlarging, itchy skin lesion mid upper back Fixative: 10% Neutral Buffered Formalin Skin Biopsy Specimens Submitted As: A: SKIN, MID UPPER BACK Gross Description: Received in formalin is a butler piece of skin measuring [id number]. The specimen is inked and embedded in toto. dcp/11/01/2022 [facility] Dermatopathology Laboratory [place] [id number] [place] [address] [facility] Comment on above: Performed By: #### T HYDS #### [facility] [address] [place] [address] Shaving Epidermal/Dermalon 0 10-30-2022 Dara Sorensen DO 10/30/2022 10:48 AM Shaving Epidermal/Dermal Date/Time: 10/30/2022 10:43 AM Performed by: Dara Sorensen DO Authorized by: Dara Sorensen DO Comments: Written consent was obtained from the patient. Risks, benefits and potential adverse effects were discussed with the patient, including but not limited to: infection, bleeding, pain, need for additional procedure. The patient was cleaned with alcohol and then topical anesthesia placed with 1cc 2% lidocaine no epi at each of the 3 sites (mid upper back, left back and mid middle back) The patient was cleaned again with povodine and alcohol. Shave biopsies were performed and tolerated well with minimal blood loss. Upper mid back lesion was sent off for pathology. The biopsy sites were dressed with topical triple antibiotic and band aids. The patient was given instructions for aftercare. [facility] Work Phone: [facility] Work Phone: UA MICROSCOPICon 07-18-2022 RBC None Normal 0-5 [facility] Comment on above: Performed By: #### U AMIC #### [facility] [address] [place] [address] WBC None Normal 0-5 [facility] Comment on above: Performed By: #### U AMIC #### [facility] [address] [place] [address] URINALYSISon 07-18-2022 Appearance (U) CLEAR Normal CLEAR [facility] [place] Comment on above: Performed By: #### U A #### [facility] [address] [place] [address] Bilirubin Ql (U) Negative Normal NEGATIVE [facility] Comment on above: Performed By: #### U A #### [facility] [address] [place] [address] Color (U) YELLOW Normal STRAW,YELLOW [facility] Comment on above: Performed By: #### U A #### [facility] [address] [place] [address] Glucose Ql (U) Negative Normal NEGATIVE [facility] [place] Comment on above: Performed By: #### U A #### [facility] [address] [place] [address] Hemoglobin Ql (U) TRACE Abnormal NEGATIVE [facility] Comment on above: Performed By: #### U A #### [facility] [address] [place] [address] Ketones Ql (U) Negative Normal NEGATIVE [facility] [place] Comment on above: Performed By: #### U A #### [facility] [address] [place] [address] Leukocyte esterase Test strip Ql (U) Negative Normal NEGATIVE [facility] Comment on above: Performed By: #### U A #### [facility] [address] [place] [address] Nitrite Ql (U) Negative Normal NEGATIVE [facility] [place] Comment on above: Performed By: #### U A #### [facility] [address] [place] [address] pH (U) 7.0 [pH] Normal 5.0 - 8.0 [facility] Comment on above: Performed By: #### U A #### [facility] [address] [place] [address] Protein Ql (U) Negative Normal NEGATIVE [facility] [place] Comment on above: Performed By: #### U A #### [facility] [address] [place] [address] Specific gravity (U) [Rel density] 1.025 Normal 1.005 - 1.035 [facility] Comment on above: Performed By: #### U A #### [facility] [address] [place] [address] Urobilinogen (U) [Mass/Vol] mg/dL Normal 0.0 - 1.9 [facility] Comment on above: Performed By: #### U A #### [facility] [address] [place] [address] Urinalysison 07-18-2022 Color (U) YELLOW See Below [facility] Work Phone: Comment on above: Reference Range: STR AW,YELLOW Glucose Ql (U) Negative NEGATIVE [facility] Work Phone: [phone] Ketones Ql (U) Negative NEGATIVE [facility] Work Phone: [phone] Leukocyte esterase Test strip Ql (U) Negative NEGATIVE [facility] Work Phone: [phone] pH (U) 7.0 [pH] 5.0 - 8.0 [facility] Work Phone: [phone] Protein (U) [Mass/Vol] Negative NEGATIVE [facility] Work Phone: [phone] RBC (U) [#/Vol] TRACE Abnormal NEGATIVE [facility] Work Phone: Specific gravity (U) [Rel density] 1.025 1 See Below [facility] Work Phone: Comment on above: Reference Range: 1.0 05 - 1.035 Urinalysis Negative NEGATIVE [facility] Work Phone: [phone] Urinalysis <2.0 0.0 - 1.9 [facility] Work Phone: [phone] Urinalysis CLEAR CLEAR [facility] Work Phone: [phone] Urinalysis, Microscopicon Urinalysis, Microscopic None 0-5 [facility] Work Phone: [phone] CBC AND DIFFERENTIALon 07-17 % AUTOMATED IMMATURE GRAN 0.5 % Normal 0.0 - 0.9 [facility] [facility] Comment on above: Result Comment: Charo ture Granulocyte Count (IG) includes promyelocytes, myelocytes and metamyelocytes but does not include bands. Percent differential counts (%) should be interpreted in the context of the absolute cell counts (cells/L). Performed By: #### C BCDF #### [facility] [address] [place] [address] Basophils (Bld) [#/Vol] 0.03 10*3/uL Normal 0.00 - 0.[address] [facility] Comment on above: Performed By: #### C BCDF #### [facility] [address] [place] [address] Eosinophils (Bld) [#/Vol] 0.18 10*3/uL Normal 0.00 - 0.40 [facility] Comment on above: Performed By: #### C BCDF #### [facility] [address] [place] [address] Eosinophils/100 WBC (Bld) 2.8 % Normal 0.0 - 6.0 [facility] Comment on above: Performed By: #### C BCDF #### [facility] [address] [place] [address] Lymphocytes (Bld) [#/Vol] 1.45 10*3/uL Normal 0.80 - 3.00 [facility] Comment on above: Performed By: #### C BCDF #### [facility] [address] [place] [address] Monocytes (Bld) [#/Vol] 0.66 10*3/uL Normal 0.05 - 0.[address] [facility] Comment on above: Performed By: #### C BCDF #### [facility] [address] [place] [address] Neutrophils (Bld) [#/Vol] 4.08 10*3/uL Normal 1.60 - 5.50 [facility] Comment on above: Performed By: #### C BCDF #### [facility] [address] [place] [address] NUCLEATED RBC 0.0 /100 WBC Normal 0.0-0.0 [facility] Comment on above: Performed By: #### C BCDF #### [facility] [address] [place] [address] RBC 4.48 x10E12/L Normal 4.00 - 5.20 [facility] [place] Comment on above: Performed By: #### C BCDF #### [facility] [address] [place] [address] COMPREHENSIVE PANELon 2022 Albumin [Mass/Vol] 4.0 g/dL Normal 3.4 - 5.0 [facility] [place] Comment on above: Performed By: #### C MP #### [facility] [address] [place] [address] ALP [Catalytic activity/Vol] 89 U/L Normal 33 - 136 -Soha [facility] Work Phone: Comment on above: Performed By: #### C MP #### [facility] [address] [place] [address] ALT [Catalytic activity/Vol] 15 U/L Normal 7 - 45 [facility] Comment on above: Result Comment: Suzanne ents treated with Sulfasalazine may generate falsely decreased results for ALT. Performed By: #### C MP #### [facility] [address] [place] [address] Anion gap [Moles/Vol] 12 mmol/L Normal 10 - 20 - Soha [facility] Work Phone: Comment on above: Performed By: #### C MP #### [facility] [address] [place] [address] AST [Catalytic activity/Vol] 17 U/L Normal 9 - 39 [facility] Comment on above: Performed By: #### C MP #### [facility] [address] [place] [address] Bilirubin [Mass/Vol] 0.7 mg/dL Normal 0.0 - 1.2 -Vee bush [facility] Work Phone: Comment on above: Performed By: #### C MP #### [facility] [address] [place] [address] Calcium [Mass/Vol] 9.3 mg/dL Normal 8.6 - 10.6 [facility] Work Phone: Comment on above: Performed By: #### C MP #### [facility] [address] [place] [address] Chloride [Moles/Vol] 105 mmol/L Normal 98 - 107 [facility] Work Phone: Comment on above: Performed By: #### C MP #### [facility] [address] [place] [address] Creatinine [Mass/Vol] 0.66 mg/dL Normal 0.50 - 1.05 [facility] Work Phone: Comment on above: Reference Range: 0.5 0 - 1.05 Performed By: #### C MP #### [facility] [address] [place] [address] eGFR FEMALE >90 Normal >90 [facility] Comment on above: Result Comment: CALC ULATIONS OF ESTIMATED GFR ARE PERFORMED USING THE 2020 CKD-EPI STUDY REFIT EQUATION WITHOUT THE RACE VARIABLE FOR THE IDMS-TRACEABLE CREATININE METHODS. https://jasn.asnjournals.org/content/early/ASN.2020 960275 Performed By: #### C MP #### [facility] [address] [place] [address] Glucose [Mass/Vol] 78 mg/dL Normal 74 - 99 [facility] Work Phone: Comment on above: Performed By: #### C MP #### [facility] [address] [place] [address] HCO3 (Bld) [Moles/Vol] 31 mmol/L Normal 21 - 32 [facility] Comment on above: Performed By: #### C MP #### [facility] [address] [place] [address] Potassium [Moles/Vol] 4.2 mmol/L Normal 3.5 - 5.3 [facility] Work Phone: Comment on above: Performed By: #### C MP #### [facility] [address] [place] [address] Protein [Mass/Vol] 6.7 g/dL Normal 6.4 - 8.2 [facility] Work Phone: Comment on above: Performed By: #### C MP #### [facility] [address] [place] [address] Sodium [Moles/Vol] 144 mmol/L Normal 136 - 145 [facility] Work Phone: Comment on above: Performed By: #### C MP #### [facility] [address] [place] [address] Urea nitrogen [Mass/Vol] 15 mg/dL Normal 6 - 23 [facility] Work Phone: Comment on above: Performed By: #### C MP #### [facility] [address] [place] [address] Complete Blood Count + Diffe rentialon 07-17-2022 Basophils/100 WBC (Bld) 0.5 % Normal 0.0 - 2.0 [facility] Work Phone: Comment on above: Performed By: #### C BCDF #### [facility] [address] [place] [address] Erythrocyte distribution width (RBC) [Ratio] 14.1 % Normal 11.5 - 14.5 [facility] Work Phone: Comment on above: Reference Range: 11. 5 - 14.5 Performed By: #### C BCDF #### [facility] [address] [place] [address] Hematocrit (Bld) [Volume fraction] 42.8 % Normal 36.0 - 46.0 [facility] Work Phone: Comment on above: Reference Range: 36. 0 - 46.0 Performed By: #### C BCDF #### [facility] [address] [place] [address] Hemoglobin (Bld) [Mass/Vol] 13.5 g/dL Normal 12.0 - 16.0 [facility] Work Phone: Comment on above: Reference Range: 12. 0 - 16.0 Performed By: #### C BCDF #### [facility] [address] [place] [address] Lymphocytes/100 WBC (Bld) 22.6 % Normal 13.0 - 44.0 [facility] Work Phone: Comment on above: Reference Range: 13. 0 - 44.0 Performed By: #### C BCDF #### [place] [address] [place] [address] MCHC (RBC) [Mass/Vol] 31.5 g/dL Low 32.0 - 36.0 [facility] Work Phone: Comment on above: Reference Range: 32. 0 - 36.0 Performed By: #### C BCDF #### [facility] [address] [place] [address] MCV (RBC) [Entitic vol] 96 fL Normal 80 - 100 M [facility] Work Phone: Comment on above: Performed By: #### C BCDF #### [facility] [address] [place] [address] Monocytes/100 WBC (Bld) 10.3 % Normal 2.0 - 10.0 M [facility] Work Phone: Comment on above: Performed By: #### C BCDF #### [facility] [address] [place] [address] Neutrophils/100 WBC (Bld) 63.3 % Normal 40.0 - 80.0 [facility] Work Phone: Comment on above: Reference Range: 40. 0 - 80.0 Performed By: #### C BCDF #### [facility] [address] [place] [address] Platelets (Bld) [#/Vol] 208 10*3/uL Normal 150 - 450 [facility] Work Phone: Comment on above: Performed By: #### C BCDF #### [facility] [address] [place] [address] WBC (Bld) [#/Vol] 6.4 10*3/uL Normal 4.4 - 11.3 [facility] Work Phone: Comment on above: Performed By: #### C BCDF #### [facility] [address] [place] [address] RBC (Bld) [#/Vol] 4.48 {x10E12/L} See Below [facility] Work Phone: Comment on above: Reference Range: 4.0 0 - 5.20 Complete Blood Count + Differential 0.03 {x10E9/L} See Below [facility] Work Phone: Comment on above: Reference Range: 0.0 0 - 0.10 Complete Blood Count + Differential 0.18 {x10E9/L} See Below [facility] Work Phone: Comment on above: Reference Range: 0.0 0 - 0.40 Complete Blood Count + Differential 0.66 {x10E9/L} See Below [facility] Work Phone: Comment on above: Reference Range: 0.0 5 - 0.80 Complete Blood Count + Differential 1.45 {x10E9/L} See Below [facility] Work Phone: Comment on above: Reference Range: 0.8 0 - 3.00 Complete Blood Count + Differential 4.08 {x10E9/L} See Below [facility] Work Phone: Comment on above: Reference Range: 1.6 0 - 5.50 Complete Blood Count + Differential 2.8 % 0.0 - 6.0 [facility] Work Phone: Complete Blood Count + Differential 0.5 % 0.0 - 0.9 [facility] Work Phone: Comment on above: Immature Granulocyte Count (IG) includes promyelocytes, myelocytes and metamyelocytes but does not include bands. Percent differential counts (%) should be interpreted in the context of the absolute cell counts (cells/L). Complete Blood Count + Differential 0.0 {/100_WBC} 0.0-0.0 [facility] Work Phone: LIPID PANEL (CORONARY RISK 2 )on 07-17-2022 Cholesterol in VLDL [Mass/Vol] 18 mg/dL Normal 0 - 40 [facility] Comment on above: Performed By: #### L IPID #### [facility] [address] [place] [address] Laboratory - Chemistry and C hemistry - challengeon 07-17-2022 Albumin BCP dye [Mass/Vol] 4.0 g/dL 3.4 - 5.0 [facility] Work Phone: ALT With P-5'-P [Catalytic activity/Vol] 15 U/L 7 - 45 [facility] Work Phone: Comment on above: Patients treated wit h Sulfasalazine may generate falsely decreased results for ALT. AST With P-5'-P [Catalytic activity/Vol] 17 U/L 9 - 39 [facility] Work Phone: CO2 [Moles/Vol] 31 mmol/L 21 - 32 [facility] Work Phone: Lipid Panelon 07-17-2022 Cholesterol [Mass/Vol] 151 mg/dL Normal 0 - 199 [facility] Work Phone: Comment on above: . AGE DESIRABLE BORD MESSI HIGH HIGH 0-19 Y 0 - 169 170 - 199 >/= 200 20-24 Y 0 - 189 190 - 224 >/= 225 >24 Y 0 - 199 200 - 239 >/= 240 All ranges are based on fasting samples. Specific therapeutic targets will vary based on patient-specific cardiac risk.. Pediatric guidelines reference:Pediatrics 2011, 128(S5). Adult guidelines reference: NCEP ATPIII Guidelines, ISABELLE 2001, 258:2486-97. Venipuncture immediately after or during the administration of Metamizole may lead to falsely low results. Testing should be performed immediately prior to Metamizole dosing. Result Comment: . AGE DESIRABLE BORDERLINE HIGH HIGH 0-19 Y 0 - 169 170 - 199 >/= 200 20-24 Y 0 - 189 190 - 224 >/= 225 >24 Y 0 - 199 200 - 239 >/= 240 All ranges are based on fasting samples. Specific therapeutic targets will vary based on patient-specific cardiac risk. . Pediatric guidelines reference:Pediatrics 2011, 128(S5). Adult guidelines reference: NCEP ATPIII Guidelines, ISABELLE 2001, 258:2486-97 . Venipuncture immediately after or during the administration of Metamizole may lead to falsely low results. Testing should be performed immediately prior to Metamizole dosing. Performed By: #### L IPID #### [facility] [address] [place] [address] Cholesterol in HDL [Mass/Vol] 52.6 mg/dL Normal [facility] Work Phone: Comment on above: . AGE VERY LOW LOW N ORMAL HIGH 0-19 Y < 35 < 40 40-45 ---- 20-24 Y ---- < 40 >45 ---- >24 Y ---- < 40 40-60 >60. Result Comment: . AGE VERY LOW LOW NORMAL HIGH 0-19 Y < 35 < 40 40-45 ---- 20-24 Y ---- < 40 >45 ---- >24 Y ---- < 40 40-60 >60 . Performed By: #### L IPID #### [facility] [address] [place] [address] Cholesterol in LDL [Mass/Vol] 80 mg/dL Normal 0 - 99 [facility] Work Phone: Comment on above: . NEAR BORD AGE IZAIAH RABLE OPTIMAL HIGH HIGH VERY HIGH 0-19 Y 0 - 109 --- 110-129 >/= 130 ---- 20-24 Y 0 - 119 --- 120-159 >/= 160 ---- >24 Y 0 - 99 100-129 130-159 160-189 >/=190. Result Comment: . NEAR BORD AGE DESIRABLE OPTIMAL HIGH HIGH VERY HIGH 0-19 Y 0 - 109 --- 110-129 >/= 130 ---- 20-24 Y 0 - 119 --- 120-159 >/= 160 ---- >24 Y 0 - 99 100-129 130-159 160-189 >/=190 . Performed By: #### L IPID #### [facility] [address] [place] [address] Cholesterol.total/Morenita sterol in HDL [Mass ratio] 2.9 {ratio} Normal [facility] Work Phone: Comment on above: REF VALUESDESIRABLE < 3.4HIGH RISK > 5.0 Result Comment: REF VALUES DESIRABLE < 3.4 HIGH RISK > 5.0 Performed By: #### L IPID #### [facility] [address] [place] [address] Triglyceride [Mass/Vol] 90 mg/dL Normal 0 - 149 [facility] Work Phone: Comment on above: . AGE DESIRABLE BORD MESSI HIGH HIGH VERY HIGH 0 D-90 D 19 - 174 ---- ---- ----91 D- 9 Y 0 - 74 75 - 99 >/= 100 ---- 10-19 Y 0 - 89 90 - 129 >/= 130 ---- 20-24 Y 0 - 114 115 - 149 >/= 150 ---- >24 Y 0 - 149 150 - 199 200- 499 >/= 500. Venipuncture immediately after or during the administration of Metamizole may lead to falsely low results. Testing should be performed immediately prior to Metamizole dosing. Result Comment: . AGE DESIRABLE BORDERLINE HIGH HIGH VERY HIGH 0 D-90 D 19 - 174 ---- ---- ---- 91 D- 9 Y 0 - 74 75 - 99 >/= 100 ---- 10-19 Y 0 - 89 90 - 129 >/= 130 ---- 20-24 Y 0 - 114 115 - 149 >/= 150 ---- >24 Y 0 - 149 150 - 199 200- 499 >/= 500 . Venipuncture immediately after or during the administration of Metamizole may lead to falsely low results. Testing should be performed immediately prior to Metamizole dosing. Performed By: #### L IPID #### [facility] [address] [place] [address] Lipid Panel 18 mg/dL 0 - 40 [facility] Work Phone: No Panel Informationon 07-17 >90 >90 [facility] Work Phone: Comment on above: CALCULATIONS OF MATEO MATED GFR ARE PERFORMED USING THE 2020 CKD-EPI STUDY REFIT EQUATION WITHOUT THE RACE VARIABLE FOR THE IDMS-TRACEABLE CREATININE METHODS.https://jasn.asnjournals.org/content// ASN.1481282488 Not at all - 0 [facility] Work Phone: Several days - 1 [facility] Work Phone: Minimal Anxiety [facility] Work Phone: Not difficult at all [facility] Work Phone: Comment on above: How difficult have t hose problems made it for you to do your work, take care of things at home, or get along with other people? 1 1 [facility] Work Phone: Comment on above: Over the last two we eks, how often have you been bothered by the following problems? Feeling nervous, anxious, or on edge: Not at all - 0Not being able to stop or control worrying: Not at all - 0Worrying too much about different things: Several days - 1Trouble relaxing: Not at all - 0Being so restless that it's hard to sit still: Not at all - 0Becoming easily annoyed or irritable: Not at all - 0Feeling afraid as if something awful might happen: Not at all - 0 PHQ-9on 07-17-2022 Adult depression screening assessment No [facility] Work Phone: Adult depression screening assessment Yes [facility] Work Phone: PHQ-9 0-Not at all [facility] Work Phone: PHQ-9 Large [facility] Work Phone: TSH WITH REFLEX TO FREE T4 I F ABNORMALon 07-17-2022 TSH Qn 2.65 m[IU]/L Normal 0.44 - 3.98 [facility] Work Phone: Comment on above: Reference Range: 0.4 4 - 3.98 TSH testing is performed using different testing methodology at [facility] than at [facility]. Direct result comparisons should only be made within the same method. Result Comment: TSH testing is performed using different testing methodology at [facility] than at [facility]. Direct result comparisons should only be made within the same method. Performed By: #### T HYDS #### [facility] [address] [place] [address] URINALYSISon 07-17-2022 ASCORBIC ACID Canceled Normal [facility] Comment on above: Order Comment: TEST URINALYSIS WAS CANCELLED, 07/17/2022 08:36 pt to return w sample. Result Comment: Conc entrations > = 20 mg/dL of ascorbic acid can be expected to cause strong interference in the reactions testing for glucose, nitrite and blood. It is recommended to discontinue Vitamin C administration and retest in 10 hours. Performed By: #### U A #### [facility] [address] [place] [address] Bilirubin Ql (U) Canceled Normal [facility] Comment on above: Order Comment: TEST URINALYSIS WAS CANCELLED, 07/17/2022 08:36 pt to return w sample. Performed By: #### U A #### [facility] [address] [place] [address] Hemoglobin Ql (U) Canceled Normal [facility] Comment on above: Order Comment: TEST URINALYSIS WAS CANCELLED, 07/17/2022 08:36 pt to return w sample. Performed By: #### U A #### [facility] [address] [place] [address] Nitrite Ql (U) Canceled Normal [facility] [place] Comment on above: Order Comment: TEST URINALYSIS WAS CANCELLED, 07/17/2022 08:36 pt to return w sample. Performed By: #### U A #### [facility] [address] [place] [address] [facility] Comment on above: Order Comment: TEST URINALYSIS WAS CANCELLED, 07/17/2022 08:36 pt to return w sample. Performed By: #### U A #### [facility] [address] [place] [address] Protein Ql (U) Canceled Normal [facility] [place] Comment on above: Order Comment: TEST URINALYSIS WAS CANCELLED, 07/17/2022 08:36 pt to return w sample. Performed By: #### U A #### [facility] [address] [place] [address] [facility] Comment on above: Order Comment: TEST URINALYSIS WAS CANCELLED, 07/17/2022 08:36 pt to return w sample. Performed By: #### U A #### [facility] [address] [place] [address] Urinalysison 07-17-2022 Appearance (U) Canceled Normal -[facility] Work Phone: Comment on above: Order Comment: TEST URINALYSIS WAS CANCELLED, 07/17/2022 08:36 pt to return w sample. Performed By: #### U A #### [facility] [address] [place] [address] Color (U) Canceled Normal -[facility] Work Phone: Comment on above: Order Comment: TEST URINALYSIS WAS CANCELLED, 07/17/2022 08:36 pt to return w sample. Performed By: #### U A #### [facility] [address] [place] [address] Glucose Ql (U) Canceled Normal -[facility] Work Phone: Comment on above: Order Comment: TEST URINALYSIS WAS CANCELLED, 07/17/2022 08:36 pt to return w sample. Performed By: #### U A #### [facility] [address] [place] [address] Ketones Ql (U) Canceled Normal -[facility] Work Phone: Comment on above: Order Comment: TEST URINALYSIS WAS CANCELLED, 07/17/2022 08:36 pt to return w sample. Performed By: #### U A #### [facility] [address] [place] [address] Leukocyte esterase Test strip Ql (U) Canceled Normal [facility] Work Phone: Comment on above: Order Comment: TEST URINALYSIS WAS CANCELLED, 07/17/2022 08:36 pt to return w sample. Performed By: #### U A #### [facility] [address] [place] [address] Specific gravity (U) [Rel density] Canceled Normal [facility] Work Phone: Comment on above: Order Comment: TEST URINALYSIS WAS CANCELLED, 07/17/2022 08:36 pt to return w sample. Performed By: #### U A #### [facility] [address] [place] [address] Protein (U) [Mass/Vol] Canceled [facility] Work Phone: RBC (U) [#/Vol] Canceled [facility] Work Phone: Urinalysis Canceled [facility] Work Phone: Comment on above: Concentrations > = 2 0 mg/dL of ascorbic acid can be expected to cause strong interference in the reactions testing for glucose, nitrite and blood. It is recommended to discontinue Vitamin C administration and retest in 10 hours. Blood Pressure Cuff Sizeon 0 01-10-2022 Adult depression screening assessment No [facility] Work Phone: Blood Pressure Cuff Size Large [facility] Work Phone: No Panel Informationon 01-10 Not at all - 0 [facility] Work Phone: Minimal Anxiety [facility] Work Phone: 0 1 [facility] Work Phone: Comment on above: Over the last two we eks, how often have you been bothered by the following problems? 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 We will continue the current regimen of medication, as noted above. Refills were provided, as needed. Behavioral measures are to be continued, including a healthy diet, regular exercise, good sleep hygiene, minimal caffeine, and avoidance of alcohol. Follow up should be in 6 months, or sooner if needed Recurrent falls, neurology consultation pending. Expect a thorough neurologic examination, and diagnostic tests to be ordered Rosacea, try MetroGel twice daily instead of once daily, if not sufficiently effective, please call for recommendations. Follow-up in 6 months Provider Impressions See below for instructions Total time spent with patient, reviewing records, and completing charting was 30 minutes, well over half of it spent counseling and/or coordinating care Portions of this medical record have been created using voice recognition software and may have minor errors which are inherent in voice recognition systems. It has not been fully edited for typographical or grammatical errors Chief Complaint MADIHA PERALES is here for a follow-up for anxiety/depression no other concerns. History of Present Illness Mrs. Perales was seen today for a 6-month follow-up of her depression, anxiety, rosacea. Medication(s) are being taken and tolerated as prescribed, without concerns, list reconciled today. She feels well overall, though still notes occasional falls, perhaps a couple of times per month. These occur often when she is walking outside, on an uneven surface. She has had no injuries. She does have an appointment with neurology soon, Dr. Reis, for these recurrent falls. She has no chest pain, shortness of breath, palpitations, nor lower extremity edema. Labs were last checked in June, all reassuring. 'Scores and Scales' PHQ-9 [id number] 07:39AM PHQ-9 Depression Severity PHQ-9 #1. Little interest or pleasure in doing things1-Several days PHQ-9 #2. Feeling down, depressed, or hopelesS1-Several days PHQ-9 #3. Trouble falling or staying asleep, or sleeping too much1-Several days PHQ-9 #4. Feeling tired or having little energy1-Several days PHQ-9 #5. Poor appetite or overeating0-Not at all PHQ-9 #6. Feeling bad about yourself or you are a failure or that you have let yourself or your family down0-Not at all PHQ-9 #7. Trouble concentrating on things, such as reading the newspaper or watch television0-Not at all PHQ-9 #8. Moving or speaking so slowly that other people could have noticed. Or the opposite-being so fidgety or restless that you have been moving around a lot more than usual0-Not at all PHQ-9 #9. Thoughts that you would be better off , or of hurting yourself0-Not at all PHQ-9 #10. If you checked off any problems, how difficult have these problems made it for you to do your work, take care of things at home, or get along with other people?Not difficult at all PHQ-9 Total Score (Please update problem list based on total score)4 CLIFTON-7 [id number] CLIFTON-7 Total Score0 Feeling nervous, anxious or on edgeNot at all - 0 Not being able to stop or control worryingNot at all - 0 Worrying too much about different thingsNot at all - 0 Trouble relaxingNot at all - 0 Being so restless that it's hard to sit stillNot at all - 0 Becoming easily annoyed or irritableNot at all - 0 Feeling afraid as if something awful might happenNot at all - 0 Review of Systems The full, multi-organ review of systems, is within normal limits with the exception of what is noted above in HPI. 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 Normal Touchworks LEE SCREENINGon 09-21-2021 [facility] Radiologyon 09-21-2021 MG Breast Screening * * *Final Report* * * DATE OF EXAM: Sep 21 2021 8:28AM MAGO 0581 - [facility] SCREENING / PROCEDURE REASON: Z12.31 MAMMOGRAM SCREENING * * * * Physician Interpretation * * * * #[id number] - [facility] SCREENING BILATERAL DIGITA Normal -[facility] Work Phone: Blood Pressure Cuff Sizeon 0 07-12-2021 Blood Pressure Cuff Size Adult [facility] Work Phone: Laboratory - Chemistry and C hemistry - challengeon 07-12-2021 Albumin BCP dye [Mass/Vol] 4.1 g/dL 3.4 - 5.0 [facility] Work Phone: ALP [Catalytic activity/Vol] 80 U/L 33 - 136 [facility] Work Phone: [phone] ALT With P-5'-P [Catalytic activity/Vol] 13 U/L 7 - 45 [facility] Work Phone: Comment on above: Patients treated wit h Sulfasalazine may generate falsely decreased results for ALT. Anion gap [Moles/Vol] 12 mmol/L 10 - 20 [facility] Work Phone: AST With P-5'-P [Catalytic activity/Vol] 15 U/L 9 - 39 [facility] Work Phone: Bilirubin [Mass/Vol] 0.6 mg/dL 0.0 - 1.2 [facility] Work Phone: Calcium [Mass/Vol] 9.0 mg/dL 8.6 - 10.6 [facility] Work Phone: Chloride [Moles/Vol] 105 mmol/L 98 - 107 [facility] Work Phone: [phone] CO2 [Moles/Vol] 31 mmol/L 21 - 32 [facility] Work Phone: Creatinine [Mass/Vol] 0.63 mg/dL See Below [facility] Work Phone: Comment on above: Reference Range: 0.5 0 - 1.05 Glucose [Mass/Vol] 85 mg/dL 74 - 99 [facility] Work Phone: Potassium [Moles/Vol] 4.1 mmol/L 3.5 - 5.3 [facility] Work Phone: Protein [Mass/Vol] 6.6 g/dL 6.4 - 8.2 [facility] Work Phone: Sodium [Moles/Vol] 144 mmol/L 136 - 145 [facility] Work Phone: Urea nitrogen [Mass/Vol] 18 mg/dL 6 - 23 [facility] Work Phone: Medicare Annual Wellness Vis iton 07-12-2021 Medicare Annual Wellness Visit *Chief Complaint Medicare Wellness, fasting, high dose flu shot , brochure given, consent signed Follow up depression/anxiety Influenza Vaccine No to all questions Patient answered all questions prior to immunization 1: Have you ever had Guillain-Center syndrome? (a viral illness resulting in neurological symptoms, including paralysis) (Yes/No): 2: Have you received a shingles(Zoster), MMR, chickenpox (varicella), or any other live vaccines in the past 4 weeks? (Yes/No): 3. Have you ever had an anaphylactic reaction to prior flu vaccines? (Yes/No): Patient was provided a copy of the current Influenza Vaccine Information Sheet History of Present Illness The patient is being seen for the subsequent annual wellness visit. Past Medical, Surgical and Family History: reviewed and updated in chart. Interval History: Patient has not been hospitalized previously. Medications and Supplements: Review of all medications by a prescribing practitioner or clinical pharmacist (such as prescriptions, OTCs, herbal therapies and supplements) documented in the medical record. No, the patient is not using opioids. Patient Self Assessment of Health Status: good. Tobacco use: Non-User Alcohol use: As noted in social history Illicit drug use: Non-User Current diet: well balanced diet, does consume adequate fluids and does consume caffeine. Exercise Frequency: the patient does not exercise. Depression/Suicide Screening: Patient has a current diagnosis of depression . During the past 2 weeks, the patient has not felt down, depressed or hopeless. During the past 2 weeks, the patient has not felt little interest or pleasure in doing things. Stable with duloxetine, wishes for no changes Hearing Impairment: none. Cognitive Impairment: No cognitive impairment observed. Bathing: performs independently. Dressing: performs independently. Walking: performs independently. Managing Finances: performs independently. Shopping: performs independently. Managing Medications: performs independently. Housework / Basic Home Maintenance: performs independently. Falls Risk Screening:. MADIHA has fallen in the last 6 months. Her fall did not result in injury. Home safety risk factors: none. Advance directives:. Patient has living will. Patient has healthcare POA. Citlaly was seen today for a routine follow-up of her duloxetine, and for fasting labs. Medication(s) are being taken and tolerated as prescribed, without concerns, list reconciled today. She overall feels well, though notes the presence of falls. She describes having difficulty stopping her gait, once she gets going. She also has noted right upper extremity tremor Labs from the last year reviewed. She does need a flu vaccine. Review of Systems The full, multi-organ review of systems, is within normal limits with the exception of what is noted above in HPI. 'Scores and Scales' PHQ-9 [id number] 06:50AM PHQ-9 Depression Severity IO PHQ2 PHQ-9 #1. Little interest or pleasure in doing things1-Several days PHQ-9 #2. Feeling down, depressed, or hopelesS1-Several days PHQ-9 #3. Trouble falling or staying asleep, or sleeping too much1-Several days PHQ-9 #4. Feeling tired or having little energy1-Several days PHQ-9 #5. Poor appetite or overeating0-Not at all PHQ-9 #6. Feeling bad about yourself or you are a failure or that you have let yourself or your family down0-Not at all PHQ-9 #7. Trouble concentrating on things, such as reading the newspaper or watch television0-Not at all PHQ-9 #8. Moving or speaking so slowly that other people could have noticed. Or the opposite-being so fidgety or restless that you have been moving around a lot more than usual0-Not at all PHQ-9 #9. Thoughts that you would be better off , or of hurting yourself0-Not at all PHQ-9 #10. If you checked off any problems, how difficult have these problems made it for you to do your work, take care of things at home, or get along with other people?Not difficult at all PHQ-9 Total Score (Please update problem list based on total score)4 IO PHQ90- In Remission *Active Problems Allergic reaction to bee sting (989.5,E905.3) (T63.441A) Allergic rhinitis (477.9) (J30.9) Depression with anxiety (300.4) (F41.8) Eczema (692.9) (L30.9) Elevated TSH (794.5) (R79.89) Encounter for Medicare annual wellness exam (V70.0) (Z00.00) Estrogen deficiency (256.39) (E28.39) External hemorrhoids (455.3) (K64.4) Hair loss (704.00) (L65.9) Immunization due (V05.9) (Z23) Lipid screening (V77.91) (Z13.220) Low back pain (724.2) (M54.50) Medication management (V58.69) (Z79.899) Menopausal state (627.2) (N95.1) Nocturnal hypoxemia (327.24) (G47.34) MARCY on CPAP (327.23,V46.8) (G47.33,Z99.89) Repeated falls (781.99) (R29.6) Rosacea, acne (695.3) (L71.9) Screening mammogram, encounter for (V76.12) (Z12.31) Seborrheic keratosis (702.19) (L82.1) Surgical History Histor (more content not included)... Normal [facility] No Panel Informationon 07-12 >90 >90 [facility] Work Phone: Comment on above: CALCULATIONS OF MATEO MATED GFR ARE PERFORMED USING THE 2020 CKD-EPI STUDY REFIT EQUATION WITHOUT THE RACE VARIABLE FOR THE IDMS-TRACEABLE CREATININE METHODS.https://jasn.asnjournals.org/content// ASN.6820700246 PHQ-9on 07-12-2021 PHQ-9 1-Several days [facility] Work Phone: PHQ-9 0-Not at all [facility] Work Phone: PHQ-9 Not difficult at all [facility] Work Phone: Blood Pressure Cuff Sizeon 0 01-10-2021 Blood Pressure Cuff Size Large [facility] Work Phone: Otheron 08-15-2020 MG Breast screening * * *Final Report* * *DATE OF EXAM: Aug 15 2020 10:11AM MAGO 0581 - [facility] SCREENING / REASON: Z12.31 SCREENING * * * * Physician Interpretation * * * * #[id number] - LEE SCREENINGBILATERAL DIGITAL SCREENING MAMMOGRAM WITH CAD: 08/15/2020HISTORY: Z12.31 Screening / Screening Mammogram-Patient reports NO symptoms.RESULT:TECH NIQUE: The study was acquired using full field digital technology and interpreted from soft copy.Current study was also evaluated with a Computer Aided Detection (CAD).Comparison is made to exams dated: 08/13/2019 mammogram, 06/25/2018 mammogram, and 06/06/2017 mammogram - [facility]. There are scattered fibroglandular elements in both breasts.There are benign post operative findings in the left breast.No significant masses, calcifications, or other findings are seen in either breast.There has been no significant interval change.IMPRESSION: BENIGN FINDINGThere is no mammographic evidence of malignancy. A 1 year screening mammogram is recommended.Marcos Aguilar/zara: 021 11:03:31Imaging Technologist(s): RT Dori(R)(M), [facility] sent: Normal over 40Mammogram BI-RADS: 2 Benign findingMultiple national specialty organizations have released breast cancer screening guidelines for women at average risk for developing breast cancer - guidelines that are based on both evidence and opinion, yet differ on when to start and how often to screen for breast cancer. With representation from Breast Imaging, Internal Medicine, Women's Health, Family Medicine, and Medical/Surgical Oncology, the [facility] has carefully reviewed the data and reached the following consensus:1) All women should engage in shared decision-making with their providers to decide when to start and how often to screen;2) All women should have the opportunity to start screening mammography at age 40;3) For women ages 45-55, we recommend annual screening mammograms;4) For women ages 55 and over, we support both the transition from an annual to a biennial interval if this aligns more with patient's values and preferences, or continuation with annual screening;5) All women should discuss with their providers when to stop screening mammograms.Transcrip tionist: PenradTranscribe Date/Time: Aug 15 2020 9:59ADictated by : MARCOS CAO MDThis examination was interpreted and the report reviewed and electronically signed by: MARCOS CAO MD on Aug 15 2020 11:03AM [id number]\[id number] IDC Normal [facility] Work Phone: Comment on above: Ordering Provider: Dorian Devi Antithyroid Perox. Abon 12-21 TPO Ab Qn [IU]/mL [facility] Work Phone: Comment on above: Negative: <=60 U/mLP ositive: >60 U/mL T3 - Free Triiodothyronine, Serumon 01-06-2020 Free T3 [Mass/Vol] 2.8 pg/mL 2.3 - 4.2 [facility] Work Phone: T4 - Free Thyroxine, Serumon 01-06-2020 Free T4 [Mass/Vol] 0.85 ng/dL See Below [facility] Work Phone: Comment on above: Reference Range: 0.7 8 - 1.48 Thyroxine Free testing is performed using different testing methodology at [facility] than at other [facility]. Direct result comparisons should only be made within the same method. TSH - Thyroid Stimulating Ho rmone, Serumon 01-06-2020 TSH Qn 4.54 {mIU/L} above high threshold See Below [facility] Work Phone: Comment on above: Reference Range: 0.4 4 - 3.98 TSH testing is performed using different testing methodology at [facility] than at other [facility]. Direct result comparisons should only be made within the same method. Vital Signs Date Time Vital Sign Value Performing Clinician Facility 09-17-2024 14:10-0400 Body height 165.1 cm Leonardo Stanec DO Work Phone: [facility] 09-17-2024 14:10-0400 Body mass index (BMI) [Ratio] 34.5 kg/m2 Leonardo Stanec DO Work Phone: [facility] 09-17-2024 14:10-0400 Body temperature 98.01 [degF] Leonardo Stanec DO Work Phone: [facility] 09-17-2024 14:10-0400 Body weight 94.03 kg Leonardo Stanec DO Work Phone: [facility] 09-17-2024 14:10-0400 Diastolic blood pressure 73 mm[Hg] Leonardo Stanec DO Work Phone: [facility] 09-17-2024 14:10-0400 Heart rate 73 /min Leonardo Stanec DO Work Phone: [facility] 09-17-2024 14:10-0400 SaO2% (BldA) [Mass fraction] 94 % Leonardo Stanec DO Work Phone: [facility] 09-17-2024 14:10-0400 Systolic blood pressure 109 mm[Hg] Leonardo Stanec DO Work Phone: [facility] 08-10-2024 09:28-0500 Body height 165.1 cm Stevie Fanny DO Work Phone: [facility] 08-10-2024 09:28-0500 Body mass index (BMI) [Ratio] 34.1 kg/m2 Stevie Fanny DO Work Phone: [facility] 08-10-2024 09:28-0500 Body temperature 98.91 [degF] Stevie Fanny DO Work Phone: [facility] 08-10-2024 09:28-0500 Body weight 92.94 kg Stevie Fanny DO Work Phone: [facility] 08-10-2024 09:28-0500 Diastolic blood pressure 59 mm[Hg] Stevie Fanny DO Work Phone: [facility] 08-10-2024 09:28-0500 Heart rate 76 /min Stevie Fanny DO Work Phone: [facility] 08-10-2024 09:28-0500 SaO2% (BldA) [Mass fraction] 97 % Stevie Fanny DO Work Phone: [facility] 08-10-2024 09:28-0500 Systolic blood pressure 105 mm[Hg] Stevie Fanny DO Work Phone: [facility] 03-16-2024 13:57-0400 Body height 165.1 cm Stevie Fanny DO Work Phone: [facility] 03-16-2024 13:57-0400 Body mass index (BMI) [Ratio] 33.46 kg/m2 Stevie Fanny DO Work Phone: [facility] 03-16-2024 13:57-0400 Body temperature 97.7 [degF] Stevie Fanny DO Work Phone: [facility] 03-16-2024 13:57-0400 Body weight 91.22 kg Stevie Fanny DO Work Phone: [facility] 03-16-2024 13:57-0400 Diastolic blood pressure 82 mm[Hg] Stevie Fanny DO Work Phone: [facility] [facility] [facility] 03-16-2024 13:57-0400 Heart rate 82 /min Stevie Fanny DO Work Phone: [facility] [facility] [facility] 03-16-2024 13:57-0400 Respiratory rate 20 /min Stevie Fanny DO Work Phone: [facility] [facility] 03-16-2024 13:57-0400 SaO2% (BldA) [Mass fraction] 96 % Stevie Fanny DO Work Phone: [facility] 03-16-2024 13:57-0400 Systolic blood pressure 127 mm[Hg] Stevie Escobedo DO Work Phone: [facility] 02-19-2024 09:13-0400 Body height 165.1 cm Torrie Choi MD Work Phone: [facility] 02-19-2024 09:13-0400 Body mass index (BMI) [Ratio] 34.45 kg/m2 Torrie Choi MD Work Phone: [facility] 02-19-2024 09:13-0400 Body weight 93.89 kg Torrie Choi MD Work Phone: [facility] 02-19-2024 09:13-0400 Diastolic blood pressure 84 mm[Hg] Torrie Choi MD Work Phone: [facility] 02-19-2024 09:13-0400 Heart rate 79 /min Torrie Choi MD Work Phone: [facility] 02-19-2024 09:13-0400 SaO2% (BldA) [Mass fraction] 97 % Torrie Choi MD Work Phone: [facility] 02-19-2024 09:13-0400 Systolic blood pressure 124 mm[Hg] Torrie Choi MD Work Phone: [facility] 02-18-2024 06:38-0400 Body mass index (BMI) [Ratio] 34.61 kg/m2 Marie Devi MD Work Phone: [facility] 02-18-2024 06:38-0400 Body temperature 98.1 [degF] Marie Devi MD Work Phone: [facility] 02-18-2024 06:38-0400 Body weight 94.35 kg Marie Devi MD Work Phone: [facility] 02-18-2024 06:38-0400 Diastolic blood pressure 71 mm[Hg] Marie Devi MD Work Phone: [facility] 02-18-2024 06:38-0400 Heart rate 72 /min Marie Devi MD Work Phone: [facility] 02-18-2024 06:38-0400 SaO2% (BldA) [Mass fraction] 91 % Marie Devi MD Work Phone: [facility] 02-18-2024 06:38-0400 Systolic blood pressure 109 mm[Hg] Marie Devi MD Work Phone: [facility] 02-03-2024 09:30-0400 Body mass index (BMI) [Ratio] 36.17 kg/m2 Stevie Fanny DO Work Phone: [facility] 02-03-2024 09:30-0400 Body temperature 98.4 [degF] Stevie Fanny DO Work Phone: [facility] 02-03-2024 09:30-0400 Body weight 95.57 kg Stevie Fanny DO Work Phone: [facility] 02-03-2024 09:30-0400 Diastolic blood pressure 63 mm[Hg] Stevie Fanny DO Work Phone: [facility] 02-03-2024 09:30-0400 Heart rate 80 /min Stevie Fanny DO Work Phone: [facility] 02-03-2024 09:30-0400 Respiratory rate 18 /min Stevie Fanny DO Work Phone: [facility] 02-03-2024 09:30-0400 SaO2% (BldA) [Mass fraction] 94 % Stevie Fanny DO Work Phone: [facility] 02-03-2024 09:30-0400 Systolic blood pressure 124 mm[Hg] Stevie Fanny DO Work Phone: [facility] [facility] 11-11-2023 14:36-0400 Body mass index (BMI) [Ratio] 34.46 kg/m2 Marie Devi MD Work Phone: [facility] 11-11-2023 14:36-0400 Body temperature 98.49 [degF] Marie Devi MD Work Phone: [facility] 11-11-2023 14:36-0400 Body weight 93.94 kg Marie Devi MD Work Phone: [facility] 11-11-2023 14:36-0400 Diastolic blood pressure 77 mm[Hg] Marie Devi MD Work Phone: [facility] 11-11-2023 14:36-0400 Heart rate 82 /min Marie Devi MD Work Phone: [facility] 11-11-2023 14:36-0400 SaO2% (BldA) [Mass fraction] 93 % Marie Devi MD Work Phone: [facility] 11-11-2023 14:36-0400 Systolic blood pressure 130 mm[Hg] Marie Devi MD Work Phone: [facility] 11-04-2023 09:43-0400 Body height 162.6 cm Stevie Fanny DO Work Phone: [facility] [facility] 11-04-2023 09:43-0400 Body mass index (BMI) [Ratio] 34.67 kg/m2 Stevie Fanny DO Work Phone: [facility] 11-04-2023 09:43-0400 Body temperature 99 [degF] Stevie Fanny DO Work Phone: [facility] [facility] 11-04-2023 09:43-0400 Body weight 91.63 kg Stevie Fanny DO Work Phone: [facility] 11-04-2023 09:43-0400 Diastolic blood pressure 71 mm[Hg] Stevie Fanny DO Work Phone: [facility] [facility] 11-04-2023 09:43-0400 Heart rate 81 /min Stevie Fanny DO Work Phone: [facility] 11-04-2023 09:43-0400 SaO2% (BldA) [Mass fraction] 93 % Stevie Schumacherel DO Work Phone: [facility] 11-04-2023 09:43-0400 Systolic blood pressure 117 mm[Hg] Stevie Schumacherel DO Work Phone: [facility] 09-23-2023 10:12-0400 Body temperature 98.2 [degF] Chair 3 [facility] 09-23-2023 10:12-0400 Diastolic blood pressure 74 mm[Hg] Chair 3 [facility] 09-23-2023 10:12-0400 Heart rate 72 /min Chair 3 [facility] 09-23-2023 10:12-0400 Respiratory rate 20 /min Chair 3 [facility] 09-23-2023 10:12-0400 SaO2% (BldA) [Mass fraction] 95 % Chair 3 [facility] 09-23-2023 10:12-0400 Systolic blood pressure 125 mm[Hg] Chair 3 [facility] 09-23-2023 08:06-0400 Body mass index (BMI) [Ratio] 35.58 kg/m2 Chair 3 [facility] 09-23-2023 08:06-0400 Body weight 94.03 kg Chair 3 [facility] 09-18-2023 09:44-0400 Body height 162.6 cm Stevie Escobedo DO Work Phone: [facility] 09-18-2023 09:44-0400 Body mass index (BMI) [Ratio] 35.87 kg/m2 Stevie Schulteebel DO Work Phone: [facility] 09-18-2023 09:44-0400 Body weight 94.8 kg Stevie Schumacherel DO Work Phone: [facility] 09-12-2023 13:17-0400 Body height 162.6 cm Vicki Diego MD Work Phone: [facility] 09-12-2023 13:17-0400 Body mass index (BMI) [Ratio] 35.91 kg/m2 Vicki Diego MD Work Phone: [facility] 09-12-2023 13:17-0400 Body temperature 96.91 [degF] Vicki Diego MD Work Phone: [facility] 09-12-2023 13:17-0400 Body weight 94.89 kg Vicki Diego MD Work Phone: [facility] 09-12-2023 13:17-0400 Diastolic blood pressure 80 mm[Hg] Vicki Diego MD Work Phone: [facility] 09-12-2023 13:17-0400 Heart rate 94 /min Vicki Diego MD Work Phone: [facility] 09-12-2023 13:17-0400 Respiratory rate 16 /min Vicki Diego MD Work Phone: [facility] 09-12-2023 13:17-0400 SaO2% (BldA) [Mass fraction] 96 % Vicki Diego MD Work Phone: [facility] 09-12-2023 13:17-0400 Systolic blood pressure 138 mm[Hg] Vicki Diego MD Work Phone: [facility] 09-02-2023 11:28-0400 Body temperature 97.81 [degF] Chair 5 [facility] 09-02-2023 11:28-0400 Diastolic blood pressure 75 mm[Hg] Chair 5 [facility] 09-02-2023 11:28-0400 Heart rate 77 /min Chair 5 [facility] 09-02-2023 11:28-0400 Respiratory rate 14 /min Chair 5 [facility] 09-02-2023 11:28-0400 SaO2% (BldA) [Mass fraction] 94 % Chair 5 [facility] 09-02-2023 11:28-0400 Systolic blood pressure 124 mm[Hg] Chair 5 [facility] 09-02-2023 08:51-0400 Body height 165.1 cm Stevie Escobedo DO Work Phone: [facility] 09-02-2023 08:51-0400 Body mass index (BMI) [Ratio] 34.56 kg/m2 Stevie Fanny DO Work Phone: [facility] 09-02-2023 08:51-0400 Body temperature 97.81 [degF] Stevie Fanny DO Work Phone: [facility] 09-02-2023 08:51-0400 Body weight 94.21 kg Stevie Schulteebel DO Work Phone: [facility] 09-02-2023 08:51-0400 Diastolic blood pressure 71 mm[Hg] Stevie Fanny DO Work Phone: [facility] [employer] 09-02-2023 08:51-0400 Heart rate 89 /min Stevie Schumacherel DO Work Phone: [facility] 09-02-2023 08:51-0400 SaO2% (BldA) [Mass fraction] 91 % Stevie Schumacherel DO Work Phone: [facility] 09-02-2023 08:51-0400 Systolic blood pressure 125 mm[Hg] Stevie Schulteebel DO Work Phone: [facility] 09-02-2023 08:50-0400 Body mass index (BMI) [Ratio] 34.56 kg/m2 Chair 5 [facility] 09-02-2023 08:50-0400 Body weight 94.21 kg Chair 5 [facility] 08-12-2023 10:38-0500 Body temperature 98.29 [degF] Chair 1 [facility] 08-12-2023 10:38-0500 Diastolic blood pressure 87 mm[Hg] Chair 1 [facility] 08-12-2023 10:38-0500 Heart rate 73 /min Chair 1 [facility] 08-12-2023 10:38-0500 Respiratory rate 20 /min Chair 1 [facility] 08-12-2023 10:38-0500 SaO2% (BldA) [Mass fraction] 94 % Chair 1 [facility] 08-12-2023 10:38-0500 Systolic blood pressure 106 mm[Hg] Chair 1 [facility] 08-12-2023 08:09-0500 Body mass index (BMI) [Ratio] 34.21 kg/m2 Chair 1 [facility] 08-12-2023 08:09-0500 Body weight 93.26 kg Chair 1 [facility] 08-05-2023 11:11-0500 Body temperature 98.8 [degF] Chair 1 [facility] 08-05-2023 11:11-0500 Diastolic blood pressure 75 mm[Hg] Chair 1 [facility] 08-05-2023 11:11-0500 Heart rate 91 /min Chair 1 [facility] 08-05-2023 11:11-0500 SaO2% (BldA) [Mass fraction] 93 % Chair 1 [facility] 08-05-2023 11:11-0500 Systolic blood pressure 138 mm[Hg] Chair 1 [facility] 08-05-2023 09:00-0500 Body mass index (BMI) [Ratio] 33.73 kg/m2 Chair 1 [facility] 08-05-2023 09:00-0500 Body weight 91.94 kg Chair 1 [facility] 08-05-2023 09:00-0500 Respiratory rate 18 /min Chair 1 [facility] 07-30-2023 06:49-0500 Body height 165.1 cm Marie Devi MD Work Phone: [facility] 07-30-2023 06:49-0500 Body mass index (BMI) [Ratio] 34.41 kg/m2 Marie Devi MD Work Phone: [facility] 07-30-2023 06:49-0500 Body temperature 97.5 [degF] Marie Devi MD Work Phone: [facility] 07-30-2023 06:49-0500 Body weight 93.8 kg Marie Devi MD Work Phone: [facility] 07-30-2023 06:49-0500 Diastolic blood pressure 72 mm[Hg] Marie Devi MD Work Phone: [facility] 07-30-2023 06:49-0500 Heart rate 86 /min Marie Devi MD Work Phone: [facility] 07-30-2023 06:49-0500 SaO2% (BldA) [Mass fraction] 94 % Marie Devi MD Work Phone: [facility] 07-30-2023 06:49-0500 Systolic blood pressure 108 mm[Hg] Marie Devi MD Work Phone: [facility] 07-15-2023 12:37-0500 Body temperature 97.3 [degF] Chair 5 [facility] 07-15-2023 12:37-0500 Diastolic blood pressure 81 mm[Hg] Chair 5 [facility] 07-15-2023 12:37-0500 Heart rate 77 /min Chair 5 [facility] 07-15-2023 12:37-0500 Respiratory rate 16 /min Chair 5 [facility] 07-15-2023 12:37-0500 SaO2% (BldA) [Mass fraction] 92 % Chair 5 [facility] 07-15-2023 12:37-0500 Systolic blood pressure 140 mm[Hg] Chair 5 [facility] 07-15-2023 10:27-0500 Body mass index (BMI) [Ratio] 33.95 kg/m2 Chair 5 [facility] 07-15-2023 10:27-0500 Body weight 92.53 kg Chair 5 [facility] 07-15-2023 10:09-0500 Body height 165.1 cm Stevie Fanny DO Work Phone: [facility] 07-15-2023 10:09-0500 Body mass index (BMI) [Ratio] 33.95 kg/m2 Stevie Fanny DO Work Phone: [facility] 07-15-2023 10:09-0500 Body temperature 97.59 [degF] Stevie Fanny DO Work Phone: [employer] 07-15-2023 10:09-0500 Body weight 92.53 kg Stevie Fanny DO Work Phone: [facility] 07-15-2023 10:09-0500 Diastolic blood pressure 78 mm[Hg] Stevie Fanny DO Work Phone: [facility] 07-15-2023 10:09-0500 Heart rate 95 /min Stevie Fanny DO Work Phone: [facility] 07-15-2023 10:09-0500 SaO2% (BldA) [Mass fraction] 93 % Stevie Fanny DO Work Phone: [facility] 07-15-2023 10:09-0500 Systolic blood pressure 135 mm[Hg] Stevie Fanny DO Work Phone: [facility] 07-03-2023 10:27-0500 Body height 165.1 cm Vicki Diego MD Work Phone: [facility] 07-03-2023 10:27-0500 Body mass index (BMI) [Ratio] 33.22 kg/m2 Vicki Diego MD Work Phone: [facility] 07-03-2023 10:27-0500 Body temperature 97.7 [degF] Vicki Diego MD Work Phone: [facility] 07-03-2023 10:27-0500 Body weight 90.54 kg Vicki Diego MD Work Phone: [facility] 07-03-2023 10:27-0500 Diastolic blood pressure 87 mm[Hg] Vicki Diego MD Work Phone: [facility] 07-03-2023 10:27-0500 Heart rate 84 /min Vicki Diego MD Work Phone: [facility] 07-03-2023 10:27-0500 Respiratory rate 20 /min Vicki Diego MD Work Phone: [facility] 07-03-2023 10:27-0500 SaO2% (BldA) [Mass fraction] 97 % Vicki Diego MD Work Phone: [facility] 07-03-2023 10:27-0500 Systolic blood pressure 135 mm[Hg] Vicki Diego MD Work Phone: [facility] 06-26-2023 14:47-0500 Body mass index (BMI) [Ratio] 33.3 kg/m2 Marie Devi MD Work Phone: [facility] 06-26-2023 14:47-0500 Body temperature 99 [degF] Marie Devi MD Work Phone: [facility] 06-26-2023 14:47-0500 Body weight 90.77 kg Marie Devi MD Work Phone: [facility] 06-26-2023 14:47-0500 Diastolic blood pressure 72 mm[Hg] Marie Devi MD Work Phone: [facility] 06-26-2023 14:47-0500 Heart rate 85 /min Marie Devi MD Work Phone: [facility] 06-26-2023 14:47-0500 Respiratory rate 16 /min Marie Devi MD Work Phone: [facility] 06-26-2023 14:47-0500 SaO2% (BldA) [Mass fraction] 92 % Marie Devi MD Work Phone: [facility] 06-26-2023 14:47-0500 Systolic blood pressure 111 mm[Hg] Marie Devi MD Work Phone: [facility] 06-24-2023 12:20-0500 Body temperature 96.4 [degF] Chair 1 [facility] 06-24-2023 12:20-0500 Diastolic blood pressure 75 mm[Hg] Chair 1 [employer] [facility] 06-24-2023 12:20-0500 Heart rate 79 /min Chair 1 [facility] 06-24-2023 12:20-0500 Respiratory rate 14 /min Chair 1 [employer] [facility] 06-24-2023 12:20-0500 SaO2% (BldA) [Mass fraction] 93 % Chair 1 [facility] 06-24-2023 12:20-0500 Systolic blood pressure 129 mm[Hg] Chair 1 [facility] 06-24-2023 08:03-0500 Body height 165.1 cm Stevie Escobedo DO Work Phone: [facility] 06-24-2023 08:03-0500 Body mass index (BMI) [Ratio] 33.45 kg/m2 Stevie Fanny DO Work Phone: [facility] 06-24-2023 08:03-0500 Body temperature 98.49 [degF] [facility] DO [facility] 06-24-2023 08:03-0500 Body weight 91.17 kg Ste[facility] F[facility] DO [facility] 06-24-2023 08:03-0500 Diastolic blood pressure 76 mm[Hg] Stevie Fanny DO Work Phone: [facility] 06-24-2023 08:03-0500 Heart rate 93 /min [facility] DO [facility] 06-24-2023 08:03-0500 SaO2% (BldA) [Mass fraction] 93 % Ste[facility] DO [facility] 06-24-2023 08:03-0500 Systolic blood pressure 121 mm[Hg] Stevie Fanny DO Work Phone: [facility] 06-24-2023 08:01-0500 Body mass index (BMI) [Ratio] 33.45 kg/m2 Chair 1 [facility] 06-24-2023 08:01-0500 Body weight 91.17 kg Chair 1 [facility] 06-13-2023 10:12-0500 Body temperature 97.9 [degF] Chair 3 [facility] 06-13-2023 10:12-0500 Diastolic blood pressure 78 mm[Hg] Chair 3 [facility] 06-13-2023 10:12-0500 Systolic blood pressure 110 mm[Hg] Chair 3 [facility] 06-13-2023 08:40-0500 Heart rate 93 /min Chair 3 [facility] 06-13-2023 08:40-0500 Respiratory rate 16 /min Chair 3 [facility] 06-13-2023 08:40-0500 SaO2% (BldA) [Mass fraction] 92 % Chair 3 [facility] 06-03-2023 14:43-0500 Body temperature 97 [degF] Chair 5 [facility] 06-03-2023 14:43-0500 Diastolic blood pressure 71 mm[Hg] Chair 5 [facility] 06-03-2023 14:43-0500 Heart rate 78 /min Chair 5 [facility] 06-03-2023 14:43-0500 Respiratory rate 18 /min Chair 5 [facility] 06-03-2023 14:43-0500 SaO2% (BldA) [Mass fraction] 93 % Chair 5 [facility] 06-03-2023 14:43-0500 Systolic blood pressure 113 mm[Hg] Chair 5 [facility] 06-03-2023 10:11-0500 Body height 165.1 cm Stevie Fanny DO Work Phone: [facility] 06-03-2023 10:11-0500 Body temperature 97.5 [degF] Stevie Fanny DO Work Phone: [facility] 06-03-2023 10:11-0500 Diastolic blood pressure 58 mm[Hg] Stevie Fanny DO Work Phone: [facility] 06-03-2023 10:11-0500 Heart rate 101 /min Stevie Fanny DO Work Phone: [facility] 06-03-2023 10:11-0500 SaO2% (BldA) [Mass fraction] 95 % Stevie Fanny DO Work Phone: [facility] 06-03-2023 10:11-0500 Systolic blood pressure 86 mm[Hg] Stevie Fanny DO Work Phone: [facility] 05-27-2023 15:26-0500 Body temperature 99.7 [degF] Chair 3 [facility] 05-27-2023 15:26-0500 Diastolic blood pressure 56 mm[Hg] Chair 3 [facility] 05-27-2023 15:26-0500 Heart rate 86 /min Chair 3 [facility] 05-27-2023 15:26-0500 Respiratory rate 18 /min Chair 3 [facility] 05-27-2023 15:26-0500 SaO2% (BldA) [Mass fraction] 91 % Chair 3 [facility] 05-27-2023 15:26-0500 Systolic blood pressure 107 mm[Hg] Chair 3 [facility] 05-27-2023 10:39-0500 Body height 165.1 cm Chair 3 [facility] 05-27-2023 10:39-0500 Body mass index (BMI) [Ratio] 33.36 kg/m2 Chair 3 [facility] 05-27-2023 10:39-0500 Body weight 90.95 kg Chair 3 [facility] 05-23-2023 10:59-0500 Diastolic blood pressure 70 mm[Hg] Chair 4 [facility] 05-23-2023 10:59-0500 Heart rate 87 /min Chair 4 [facility] 05-23-2023 10:59-0500 SaO2% (BldA) [Mass fraction] 91 % Chair 4 [facility] 05-23-2023 10:59-0500 Systolic blood pressure 125 mm[Hg] Chair 4 [facility] 05-23-2023 08:45-0500 Body mass index (BMI) [Ratio] 33.9 kg/m2 Chair 4 [facility] 05-23-2023 08:45-0500 Body temperature 97.7 [degF] Chair 4 [facility] 05-23-2023 08:45-0500 Body weight 92.4 kg Chair 4 [facility] 05-23-2023 08:45-0500 Respiratory rate 20 /min Chair 4 [facility] 05-20-2023 13:16-0500 Body temperature 98.1 [degF] Bed 1 [facility] 05-20-2023 13:16-0500 Diastolic blood pressure 70 mm[Hg] Bed 1 [facility] 05-20-2023 13:16-0500 Heart rate 75 /min Bed 1 [facility] 05-20-2023 13:16-0500 SaO2% (BldA) [Mass fraction] 94 % Bed 1 [facility] 05-20-2023 13:16-0500 Systolic blood pressure 134 mm[Hg] Bed 1 [facility] 05-20-2023 08:48-0500 Body height 165.1 cm Stevie Fanny DO Work Phone: [facility] 05-20-2023 08:48-0500 Body mass index (BMI) [Ratio] 33.41 kg/m2 Stevie Fanny DO Work Phone: [facility] 05-20-2023 08:48-0500 Body temperature 98.01 [degF] Stevie Fanny DO Work Phone: [facility] 05-20-2023 08:48-0500 Body weight 91.08 kg Stevie Fanny DO Work Phone: [facility] 05-20-2023 08:48-0500 Diastolic blood pressure 68 mm[Hg] Stevie Fanny DO Work Phone: [facility] 05-20-2023 08:48-0500 Heart rate 85 /min Stevie Fanny DO Work Phone: [facility] 05-20-2023 08:48-0500 SaO2% (BldA) [Mass fraction] 95 % Stevie Schumacherel DO Work Phone: [facility] 05-20-2023 08:48-0500 Systolic blood pressure 106 mm[Hg] Stevie Schulteebel DO Work Phone: [facility] 05-20-2023 08:43-0500 Body mass index (BMI) [Ratio] 33.36 kg/m2 Bed 1 [facility] 05-20-2023 08:43-0500 Body weight 90.95 kg Bed 1 [facility] 05-20-2023 08:43-0500 Respiratory rate 16 /min Bed 1 [facility] 05-13-2023 12:58-0500 Body temperature 98.71 [degF] Chair 5 [facility] 05-13-2023 12:58-0500 Diastolic blood pressure 71 mm[Hg] Chair 5 [facility] 05-13-2023 12:58-0500 Heart rate 78 /min Chair 5 [facility] 05-13-2023 12:58-0500 Respiratory rate 16 /min Chair 5 [facility] 11-21-2023 12:58-0500 SaO2% (BldA) [Mass fraction] 94 % Chair 5 [facility] 05-13-2023 12:58-0500 Systolic blood pressure 120 mm[Hg] Chair 5 [facility] 05-13-2023 08:40-0500 Body mass index (BMI) [Ratio] 33.78 kg/m2 Chair 5 [facility] 05-13-2023 08:40-0500 Body weight 92.08 kg Chair 5 [facility] 05-06-2023 13:06-0500 Body temperature 98.2 [degF] Chair 5 [facility] 05-06-2023 13:06-0500 Diastolic blood pressure 74 mm[Hg] Chair 5 [facility] 05-06-2023 13:06-0500 Heart rate 70 /min Chair 5 [facility] 05-06-2023 13:06-0500 Respiratory rate 12 /min Chair 5 [facility] 05-06-2023 13:06-0500 SaO2% (BldA) [Mass fraction] 92 % Chair 5 [facility] 05-06-2023 13:06-0500 Systolic blood pressure 136 mm[Hg] Chair 5 [facility] 05-06-2023 08:44-0500 Body height 165.1 cm Stevie Fanny DO Work Phone: [facility] 05-06-2023 08:44-0500 Body mass index (BMI) [Ratio] 34.25 kg/m2 Stevie Fanny DO Work Phone: [facility] 05-06-2023 08:44-0500 Body temperature 97 [degF] Stevie Fanny DO Work Phone: [facility] 05-06-2023 08:44-0500 Body weight 93.35 kg Stevie Fanny DO Work Phone: [facility] 05-06-2023 08:44-0500 Diastolic blood pressure 71 mm[Hg] Stevie Fanny DO Work Phone: [facility] 05-06-2023 08:44-0500 Heart rate 77 /min Stevie Fanny DO Work Phone: [facility] 05-06-2023 08:44-0500 SaO2% (BldA) [Mass fraction] 96 % Stevie Escobedo DO Work Phone: [facility] 05-06-2023 08:44-0500 Systolic blood pressure 113 mm[Hg] Stevie Escobedo DO Work Phone: [facility] 05-06-2023 08:43-0500 Body mass index (BMI) [Ratio] 34.25 kg/m2 Chair 5 [facility] 05-06-2023 08:43-0500 Body weight 93.35 kg Chair 5 [facility] 04-29-2023 13:56-0500 Body temperature 97.5 [degF] Chair 4 [facility] 04-29-2023 13:56-0500 Diastolic blood pressure 84 mm[Hg] Chair 4 [facility] 04-29-2023 13:56-0500 Heart rate 84 /min Chair 4 [facility] 04-29-2023 13:56-0500 Respiratory rate 20 /min Chair 4 [facility] 04-29-2023 13:56-0500 SaO2% (BldA) [Mass fraction] 94 % Chair 4 [facility] 04-29-2023 13:56-0500 Systolic blood pressure 132 mm[Hg] Chair 4 [facility] 04-29-2023 10:04-0500 Body mass index (BMI) [Ratio] 33.9 kg/m2 Chair 4 [facility] 04-29-2023 10:04-0500 Body weight 92.4 kg Chair 4 [facility] 04-22-2023 12:25-0400 Body temperature 97.3 [degF] Chair 6 [facility] 04-22-2023 12:25-0400 Diastolic blood pressure 76 mm[Hg] Chair 6 [facility] 04-22-2023 12:25-0400 Heart rate 75 /min Chair 6 [facility] 04-22-2023 12:25-0400 Respiratory rate 14 /min Chair 6 [facility] 04-22-2023 12:25-0400 SaO2% (BldA) [Mass fraction] 98 % Chair 6 [facility] 04-22-2023 12:25-0400 Systolic blood pressure 130 mm[Hg] Chair 6 [facility] 04-22-2023 08:12-0400 Body height 165.1 cm Stevie Fanny DO Work Phone: [facility] 04-22-2023 08:12-0400 Body mass index (BMI) [Ratio] 34.18 kg/m2 Stevie Fanny DO Work Phone: [facility] 04-22-2023 08:12-0400 Body temperature 98.01 [degF] Stevie Fanny DO Work Phone: [facility] 04-22-2023 08:12-0400 Body weight 93.17 kg Stevie Fanny DO Work Phone: [facility] 04-22-2023 08:12-0400 Diastolic blood pressure 83 mm[Hg] Stevie Fanny DO Work Phone: [facility] 04-22-2023 08:12-0400 Heart rate 79 /min Stevie Fanny DO Work Phone: [facility] 04-22-2023 08:12-0400 SaO2% (BldA) [Mass fraction] 93 % Setvie Fanny DO Work Phone: [facility] 04-22-2023 08:12-0400 Systolic blood pressure 139 mm[Hg] Stevie Fanny DO Work Phone: [facility] 04-08-2023 13:50-0400 Body temperature 97.5 [degF] Chair 6 [facility] 04-08-2023 13:50-0400 Diastolic blood pressure 71 mm[Hg] Chair 6 [facility] 04-08-2023 13:50-0400 Heart rate 72 /min Chair 6 [facility] 04-08-2023 13:50-0400 Respiratory rate 18 /min Chair 6 [facility] 04-08-2023 13:50-0400 Systolic blood pressure 128 mm[Hg] Chair 6 [facility] 04-08-2023 09:59-0400 Body height 165.1 cm Stevie Fanny DO Work Phone: [facility] 04-08-2023 09:59-0400 Body mass index (BMI) [Ratio] 33.86 kg/m2 Steviecharito Schumacherel DO Work Phone: [facility] 04-08-2023 09:59-0400 Body temperature 98.4 [degF] Stevie Schumacherel DO Work Phone: [facility] 04-08-2023 09:59-0400 Body weight 92.31 kg Stevie Schumacherel DO Work Phone: [facility] 04-08-2023 09:59-0400 Diastolic blood pressure 64 mm[Hg] Stevie Fanny DO Work Phone: [facility] 04-08-2023 09:59-0400 Heart rate 74 /min Stevie Schumacherel DO Work Phone: [facility] 04-08-2023 09:59-0400 SaO2% (BldA) [Mass fraction] 98 % Stevie Escobedo DO Work Phone: [facility] 04-08-2023 09:59-0400 Systolic blood pressure 127 mm[Hg] Stevie Schumacherel DO Work Phone: [facility] 04-08-2023 09:56-0400 Body mass index (BMI) [Ratio] 33.86 kg/m2 Chair 6 [facility] 04-08-2023 09:56-0400 Body weight 92.31 kg Chair 6 [facility] 04-08-2023 09:56-0400 SaO2% (BldA) [Mass fraction] 98 % Chair 6 [facility] 04-01-2023 13:44-0400 Body temperature 98.01 [degF] Chair 3 [facility] 04-01-2023 13:44-0400 Diastolic blood pressure 81 mm[Hg] Chair 3 [facility] 04-01-2023 13:44-0400 Heart rate 70 /min Chair 3 [facility] 04-01-2023 13:44-0400 Respiratory rate 16 /min Chair 3 [facility] 04-01-2023 13:44-0400 SaO2% (BldA) [Mass fraction] 91 % Chair 3 [facility] 04-01-2023 13:44-0400 Systolic blood pressure 130 mm[Hg] Chair 3 [facility] 04-01-2023 08:02-0400 Body mass index (BMI) [Ratio] 34.11 kg/m2 Chair 3 [facility] 04-01-2023 08:02-0400 Body weight 92.99 kg Chair 3 [facility] 03-26-2023 14:30-0400 Body height 165.1 cm Stevie Fanny DO Work Phone: [facility] 03-26-2023 14:30-0400 Body mass index (BMI) [Ratio] 33.78 kg/m2 Stevie Fanny DO Work Phone: [facility] 03-26-2023 14:30-0400 Body weight 92.08 kg Stevie Fanny DO Work Phone: [facility] 03-18-2023 13:35-0400 Body height 165.1 cm Stevie Fanny DO Work Phone: [facility] 03-18-2023 13:35-0400 Body mass index (BMI) [Ratio] 33.86 kg/m2 Stevie Fanny DO Work Phone: [facility] 03-18-2023 13:35-0400 Body temperature 98.1 [degF] Stevie Fanny DO Work Phone: [facility] 03-18-2023 13:35-0400 Body weight 92.31 kg Stevie Fanny DO Work Phone: [facility] 03-18-2023 13:35-0400 Diastolic blood pressure 83 mm[Hg] Stevie Fanny DO Work Phone: [facility] 03-18-2023 13:35-0400 Heart rate 77 /min Stevie Fanny DO Work Phone: [facility] 03-18-2023 13:35-0400 SaO2% (BldA) [Mass fraction] 97 % Stevie Fanny DO Work Phone: [facility] 03-18-2023 13:35-0400 Systolic blood pressure 140 mm[Hg] Stevie Escobedo DO Work Phone: [facility] 03-06-2023 13:21-0400 Body height 165.1 cm Vicki Diego MD Work Phone: [facility] 03-06-2023 13:21-0400 Body mass index (BMI) [Ratio] 33.66 kg/m2 Vicki Diego MD Work Phone: [facility] 03-06-2023 13:21-0400 Body temperature 97.11 [degF] Vicki Diego MD Work Phone: [facility] 03-06-2023 13:21-0400 Body weight 91.76 kg Vicki Diego MD Work Phone: [facility] 03-06-2023 13:21-0400 Diastolic blood pressure 90 mm[Hg] Vicki Diego MD Work Phone: [facility] 03-06-2023 13:21-0400 Heart rate 77 /min Vicki Diego MD Work Phone: [facility] 03-06-2023 13:21-0400 Respiratory rate 20 /min Vicki Diego MD Work Phone: [facility] 03-06-2023 13:21-0400 SaO2% (BldA) [Mass fraction] 97 % Vicki Diego MD Work Phone: [facility] 03-06-2023 13:21-0400 Systolic blood pressure 140 mm[Hg] Vicki Diego MD Work Phone: [facility] 02-12-2023 15:27-0400 Body mass index (BMI) [Ratio] 34.11 kg/m2 Marie Devi MD Work Phone: [facility] 02-12-2023 15:27-0400 Body temperature 97.39 [degF] Marie Devi MD Work Phone: [facility] 02-12-2023 15:27-0400 Body weight 92.99 kg Marie Devi MD Work Phone: [facility] 02-12-2023 15:27-0400 Diastolic blood pressure 75 mm[Hg] Marie Devi MD Work Phone: [facility] 02-12-2023 15:27-0400 Heart rate 71 /min Marie Devi MD Work Phone: [facility] 02-12-2023 15:27-0400 Respiratory rate 16 /min Marie Devi MD Work Phone: [facility] 02-12-2023 15:27-0400 Systolic blood pressure 122 mm[Hg] Marie Devi MD Work Phone: [facility] 02-05-2023 07:51-0400 Body height 166.4 cm Pacc 2 Work Phone: [facility] 02-05-2023 07:51-0400 Body temperature 97.11 [degF] Pacc 2 Work Phone: [facility] 02-05-2023 07:51-0400 Body weight 93.44 kg Pacc 2 Work Phone: [facility] [facility] 02-05-2023 07:51-0400 Diastolic blood pressure 69 mm[Hg] Pacc 2 Work Phone: [facility] 02-05-2023 07:51-0400 Heart rate 76 /min Pacc 2 Work Phone: [facility] 02-05-2023 07:51-0400 Respiratory rate 16 /min Pacc 2 Work Phone: [facility] 02-05-2023 07:51-0400 SaO2% (BldA) [Mass fraction] 97 % Pacc 2 Work Phone: [facility] 02-05-2023 07:51-0400 Systolic blood pressure 126 mm[Hg] Pacc 2 Work Phone: [facility] 02-03-2023 14:21-0400 Body height 165.1 cm Torrie Choi MD Work Phone: [facility] 02-03-2023 14:21-0400 Body weight 92.08 kg Torrie Choi MD Work Phone: [facility] 02-03-2023 14:21-0400 Diastolic blood pressure 83 mm[Hg] Torrie Choi MD Work Phone: [facility] 02-03-2023 14:21-0400 Heart rate 74 /min Torrie Choi MD Work Phone: [facility] 02-03-2023 14:21-0400 Systolic blood pressure 128 mm[Hg] Torrie Choi MD Work Phone: [facility] 01-23-2023 06:35-0400 Body mass index (BMI) [Ratio] 34.38 kg/m2 Marie Devi MD Work Phone: [facility] 01-23-2023 06:35-0400 Body temperature 96.91 [degF] Marie Devi MD Work Phone: [facility] 01-23-2023 06:35-0400 Body weight 93.71 kg Marie Devi MD Work Phone: [facility] 01-23-2023 06:35-0400 Diastolic blood pressure 73 mm[Hg] Marie Devi MD Work Phone: [facility] 01-23-2023 06:35-0400 Heart rate 68 /min Marie Devi MD Work Phone: [facility] 01-23-2023 06:35-0400 Respiratory rate 16 /min Marie Devi MD Work Phone: [facility] 01-23-2023 06:35-0400 SaO2% (BldA) [Mass fraction] 97 % Marie Devi MD Work Phone: [facility] 01-23-2023 06:35-0400 Systolic blood pressure 115 mm[Hg] Marie Devi MD Work Phone: [facility] 10-30-2022 10:06-0400 Body mass index (BMI) [Ratio] 32.78 kg/m2 Dara Mesko DO Work Phone: [facility] 10-30-2022 10:06-0400 Body temperature 97.9 [degF] Dara Mesko DO Work Phone: [facility] 10-30-2022 10:06-0400 Body weight 89.36 kg Dara Mesko DO Work Phone: [facility] 10-30-2022 10:06-0400 Diastolic blood pressure 66 mm[Hg] Dara Mesko DO Work Phone: [facility] 10-30-2022 10:06-0400 Heart rate 73 /min Dara Mesko DO Work Phone: [facility] 10-30-2022 10:06-0400 Respiratory rate 14 /min Dara Mesko DO Work Phone: [facility] 10-30-2022 10:06-0400 SaO2% (BldA) [Mass fraction] 97 % Dara Daianako DO Work Phone: [facility] 10-30-2022 10:06-0400 Systolic blood pressure 100 mm[Hg] Dara Mesko DO Work Phone: [facility] 10-24-2022 14:36-0400 Body mass index (BMI) [Ratio] 32.92 kg/m2 Dara Mesko DO Work Phone: [facility] 10-24-2022 14:36-0400 Body temperature 98.01 [degF] Dara Mesko DO Work Phone: [facility] 10-24-2022 14:36-0400 Body weight 89.72 kg Dara Daianako DO Work Phone: [facility] 10-24-2022 14:36-0400 Diastolic blood pressure 72 mm[Hg] Dara Ahmadiko DO Work Phone: [facility] 10-24-2022 14:36-0400 Heart rate 85 /min Dara Mesko DO Work Phone: [facility] 10-24-2022 14:36-0400 Respiratory rate 16 /min Dara Mesko DO Work Phone: [facility] 10-24-2022 14:36-0400 SaO2% (BldA) [Mass fraction] 98 % Dara Ahmadiko DO Work Phone: [facility] 10-24-2022 14:36-0400 Systolic blood pressure 126 mm[Hg] Dara Ahmadiko DO Work Phone: [facility] 07-17-2022 06:57-0500 Body height 165.1 cm Marie Devi [facility] Phone: [facility] Work Phone: 07-17-2022 06:57-0500 Body mass index (BMI) [Ratio] 32.53 kg/m2 Marie Devi Work Phone: [facility] Work Phone: 07-17-2022 06:57-0500 Body surface area Derived from formula 1.96 m2 Marie Devi Work Phone: [facility] Work Phone: 07-17-2022 06:57-0500 Body temperature 97.8 [degF] Marie Douglasle Work Phone: [facility] Work Phone: 07-17-2022 06:57-0500 Body weight 88.68 kg Marie Devi Work Phone: [facility] Work Phone: 07-17-2022 06:57-0500 Diastolic blood pressure 68 mm[Hg] Marie Devi Work Phone: [facility] Work Phone: 07-17-2022 06:57-0500 Heart rate 67 /min Marie Stanley Dulle Work Phone: [facility] Work Phone: 07-17-2022 06:57-0500 Respiratory rate 12 /min Marie Stanley Dulle Work Phone: [facility] Work Phone: 07-17-2022 06:57-0500 SaO2% (BldA) [Mass fraction] 95 % Marie Devi Work Phone: [facility] Work Phone: 07-17-2022 06:57-0500 Systolic blood pressure 104 mm[Hg] Marie Stanley Dulle Work Phone: [facility] Work Phone: 01-10-2022 06:33-0400 Body mass index (BMI) [Ratio] 33.28 kg/m2 Marie Devi Work Phone: [facility] Work Phone: 01-10-2022 06:33-0400 Body surface area Derived from formula 1.98 m2 Marie Devi Work Phone: [facility] Work Phone: 01-10-2022 06:33-0400 Body temperature 98.1 [degF] Marie Stanley Dulle Work Phone: [facility] Work Phone: 01-10-2022 06:33-0400 Body weight 90.72 kg Marie Stanley Dulle Work Phone: [facility] Work Phone: 01-10-2022 06:33-0400 Diastolic blood pressure 69 mm[Hg] Marie Stanley Dulle Work Phone: [facility] Work Phone: 01-10-2022 06:33-0400 Heart rate 71 /min Marie Devi Work Phone: [facility] Work Phone: 01-10-2022 06:33-0400 Respiratory rate 12 /min Marie Devi Work Phone: [facility] Work Phone: 01-10-2022 06:33-0400 SaO2% (BldA) [Mass fraction] 96 % Marie Devi Work Phone: [facility] Work Phone: 01-10-2022 06:33-0400 Systolic blood pressure 103 mm[Hg] Marie Devi Work Phone: [facility] Work Phone: 07-12-2021 07:39-0500 4 1 Marie Devi Work Phone: [facility] Work Phone: Comment on above: PHQ-9 TS 07-12-2021 06:47-0500 Body height 165.1 cm Marie Devi Work Phone: [facility] Work Phone: 07-12-2021 06:47-0500 Body mass index (BMI) [Ratio] 32.62 kg/m2 Marie Devi Work Phone: [facility] Work Phone: 07-12-2021 06:47-0500 Body surface area Derived from formula 1.96 m2 Marie Devi Work Phone: [facility] Work Phone: 07-12-2021 06:47-0500 Body temperature 98 [degF] Marie Devi Work Phone: [facility] Work Phone: 07-12-2021 06:47-0500 Body weight 88.91 kg Marie Devi Work Phone: [facility] Work Phone: 07-12-2021 06:47-0500 Diastolic blood pressure 69 mm[Hg] Marie Stanley Duldina Work Phone: [facility] Work Phone: 07-12-2021 06:47-0500 Heart rate 71 /min Marie Devi Work Phone: [facility] Work Phone: 07-12-2021 06:47-0500 Respiratory rate 12 /min Marie Stanley Duldina Work Phone: [facility] Work Phone: 07-12-2021 06:47-0500 SaO2% (BldA) [Mass fraction] 95 % Marie Devi Work Phone: [facility] Work Phone: 07-12-2021 06:47-0500 Systolic blood pressure 108 mm[Hg] Marie Devi Work Phone: [facility] Work Phone: 01-10-2021 06:45-0400 Body mass index (BMI) [Ratio] 32.95 kg/m2 Marie Devi Work Phone: [facility] Work Phone: 01-10-2021 06:45-0400 Body surface area Derived from formula 1.95 m2 Marie Devi Work Phone: [facility] Work Phone: 01-10-2021 06:45-0400 Body temperature 96.2 [degF] Marie Stanley Dulle Work Phone: [facility] Work Phone: 01-10-2021 06:45-0400 Body weight 88.45 kg Marie Devi Work Phone: [facility] Work Phone: 01-10-2021 06:45-0400 Diastolic blood pressure 71 mm[Hg] Marie Stanley Dulle Work Phone: [facility] Work Phone: 01-10-2021 06:45-0400 Heart rate 73 /min Marie Stanley Dulle Work Phone: [facility] Work Phone: 01-10-2021 06:45-0400 Respiratory rate 12 /min Marie Stanley Dulle Work Phone: [facility] Work Phone: 01-10-2021 06:45-0400 SaO2% (BldA) [Mass fraction] 96 % Marie Stanley Duldina Work Phone: [facility] Work Phone: 01-10-2021 06:45-0400 Systolic blood pressure 105 mm[Hg] Marie Stanley Duldina Work Phone: [facility] Work Phone: 01-06-2020 08:40-0400 Body Temperature 97.7 [degF] Marie Devi [facility] Work Phone: Comment on above: Method: Temporal 01-06-2020 08:40-0400 BP Diastolic 71 mm[Hg] Marie Devi [facility] Work Phone: Comment on above: Location: RUE; Position: Sitting 01-06-2020 08:40-0400 BP Systolic 110 mm[Hg] Marie Devi [facility] Work Phone: Comment on above: Location: RUE; Position: Sitting 01-06-2020 08:40-0400 Pulse (Heart Rate) 72 /min Marie Devi [facility] Work Phone: 01-06-2020 08:40-0400 Pulse Oximetry 95 % Marie Devi [facility] Work Phone: 01-06-2020 08:40-0400 Respiratory Rate 12 /min Marie Devi [facility] Work Phone: 01-06-2020 08:37-0400 BMI (Body Mass Index) 30.42 kg/m2 Marie Devi [facility] Work Phone: 01-06-2020 08:37-0400 Body weight 81.65 kg Marie Devi [facility] Work Phone: 01-06-2020 08:37-0400 BSA (Body Surface Area) 1.88 m2 Marie Devi [facility] Work Phone: Encounters Encounter Date Encounter Type Care Provider Facility Start: 12-03-2024 End: 12-10-2024 Evaluation and management of inpatient SHAW KINSEY Facility:[facility] Start: 09-17-2024 End: 09-17-2024 Patient encounter procedure Leonardo Kaiam [facility] DO Work Phone: [facility] Comment on above: Medicare annual well ness visit, subsequent (Primary Dx); Depression with anxiety; Elevated TSH; Parkinson's disease without dyskinesia or fluctuating manifestations; Vitamin D deficiency; Do not resuscitate Start: 09-17-2024 End: 09-17-2024 ambulatory [facility] Start: 08-10-2024 End: 08-10-2024 Office outpatient visit 15 minutes Stevie E Fanny DO Work Phone: [facility] Comment on above: Malignant neoplasm o f upper-outer quadrant of left breast in female, estrogen receptor positive (HCC) (Primary Dx) Start: 08-10-2024 End: 08-10-2024 ambulatory [facility] Start: 07-31-2024 End: 08-03-2024 Refill Stevie E Fanny DO Work Phone: [facility] Comment on above: Malignant neoplasm o f upper-outer quadrant of left breast in female, estrogen receptor positive (HCC) Start: 03-25-2024 ambulatory MARIE DEVI Facility: [facility] Start: 03-25-2024 End: 03-25-2024 Subsequent hospital visit by physician Screen/Diagnostic Mammo [facility] Work Phone: Mammography Comment on above: Visit for screening mammogram [Z12.31] Start: 03-16-2024 End: 03-16-2024 Office outpatient visit 15 minutes Stevie E Fanny DO Work Phone: [facility] [place] Comment on above: Malignant neoplasm o f upper-outer quadrant of left breast in female, estrogen receptor positive (HCC) (Primary Dx) Start: 03-16-2024 End: 03-16-2024 ambulatory [facility] Start: 02-19-2024 End: 02-19-2024 ambulatory TORRIE CHOI Facility:[facility] Start: 02-19-2024 End: 02-19-2024 Patient encounter procedure Torrie Choi MD Work Phone: General Surgery Comment on above: Malignant neoplasm o f upper-outer quadrant of left breast in female, estrogen receptor positive (HCC) (Primary Dx) Start: 02-18-2024 End: 02-18-2024 Office outpatient visit 25 minutes Marie Devi MD Work Phone: [facility] Comment on above: Parkinsonism, unspec ified Parkinsonism type (Multi) (Primary Dx); Malignant neoplasm of right female breast, unspecified estrogen receptor status, unspecified site of breast (Multi); Depression with anxiety; Elevated TSH; Obesity (BMI 30.0-34.9); Other specified depressive episodes Start: 02-18-2024 End: 02-18-2024 ambulatory [facility] Start: 02-03-2024 End: 02-03-2024 Refill Stevie E Fanny DO Work Phone: [facility] Comment on above: Malignant neoplasm o f upper-outer quadrant of left breast in female, estrogen receptor positive (HCC) Patient Question Start: 02-03-2024 End: 02-03-2024 Office outpatient visit 25 minutes Stevie E Fanny DO Work Phone: [facility] Comment on above: Malignant neoplasm o f upper-outer quadrant of left breast in female, estrogen receptor positive (HCC) (Primary Dx) Start: 11-11-2023 End: 11-11-2023 Office outpatient visit 25 minutes Marie Devi MD Work Phone: [facility] Comment on above: 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) (Primary Dx); Parkinsonism, unspecified Parkinsonism type (Multi); Depression with anxiety; Pneumonia due to COVID-19 virus; Malignant neoplasm of right female breast, unspecified estrogen receptor status, unspecified site of breast (Multi) Start: 11-11-2023 End: 11-11-2023 ambulatory MARIE Stanley formerly [facility] Start: 11-04-2023 End: 11-04-2023 Office outpatient visit 25 minutes Stevie E Fanny DO Work Phone: [facility] Comment on above: Malignant neoplasm o f upper-outer quadrant of left breast in female, estrogen receptor positive (HCC) (Primary Dx) Start: 11-04-2023 End: 11-04-2023 ambulatory Stevie E Fanny DO Work Phone: [facility] Comment on above: Arrived Start: 10-30-2023 Orders Only Stevie E Goebe l DO Work Phone: [facility] Comment on above: Malignant neoplasm o f upper-outer quadrant of left breast in female, estrogen receptor positive (HCC) (Primary Dx) Start: 10-29-2023 End: 11-27-2023 ambulatory MARIE Stanley [facility] Start: 10-14-2023 End: 10-28-2023 ambulatory ELO HOWARDANG Facility:[facility] Start: 10-14-2023 End: 10-28-2023 Subsequent hospital visit by physician Darrick Santos DO Work Phone: [facility] Start: 10-06-2023 Telephone encounter Lisa zarate RD [facility] Comment on above: Nutrition Counseling Start: 09-30-2023 Orders Only Stevie E Goebe l DO Work Phone: [facility] Comment on above: Malignant neoplasm o f upper-outer quadrant of left breast in female, estrogen receptor positive (HCC) (Primary Dx) Start: 09-23-2023 End: 09-23-2023 ambulatory Stevie E Fanny DO Work Phone: [facility] Comment on above: Malignant neoplasm o f upper-outer quadrant of left breast in female, estrogen receptor positive (HCC) Start: 09-18-2023 End: 09-18-2023 Subsequent hospital visit by physician Stevie Escobedo DO Work Phone: [facility] Non-Invasive Cardiology Comment on above: Admission for therap eutic drug monitoring; Encounter for monitoring cardiotoxic drug therapy Start: 09-18-2023 End: 09-18-2023 [email or web address] Start: 09-12-2023 End: 09-12-2023 Subsequent hospital visit by physician Vicki Diego MD Work Phone: [facility] Comment on above: Malignant neoplasm o f upper-outer quadrant of left breast in female, estrogen receptor positive (HCC) (HCC) (Primary Dx) Start: 09-12-2023 End: 09-12-2023 ambulatory VICKI [facility] Start: 09-05-2023 End: 09-05-2023 Orders Only Stevie Sam SchulteFanny DO Work Phone: [facility] Comment on above: Malignant neoplasm o f upper-outer quadrant of left breast in female, estrogen receptor positive (HCC) (HCC) (Primary Dx) Malignant neoplasm o f upper-outer quadrant of left breast in female, estrogen receptor positive (HCC) (HCC); Asymptomatic menopausal state; Encounter for monitoring anastrozole therapy Start: 09-02-2023 End: 09-02-2023 Office outpatient visit 25 minutes Stevie E Fanny DO Work Phone: [facility] Comment on above: Malignant neoplasm o f upper-outer quadrant of left breast in female, estrogen receptor positive (HCC) (HCC) (Primary Dx); Encounter for monitoring cardiotoxic drug therapy; Asymptomatic menopausal state; Encounter for monitoring anastrozole therapy Start: 09-02-2023 End: 09-02-2023 ambulatory Stevie E Fanny DO Work Phone: [facility] Comment on above: Malignant neoplasm o f upper-outer quadrant of left breast in female, estrogen receptor positive (HCC) (HCC) Start: 08-15-2023 Orders Only Stevie alvarado DO Work Phone: [facility] Comment on above: Malignant neoplasm o f upper-outer quadrant of left breast in female, estrogen receptor positive (HCC) (HCC) (Primary Dx) Start: 08-12-2023 End: 08-12-2023 Subsequent hospital visit by physician Varian [facility] Start: 08-12-2023 End: 08-12-2023 ambulatory Stevie Escobedo DO Work Phone: [facility] Comment on above: Malignant neoplasm o f upper-outer quadrant of left breast in female, estrogen receptor positive (HCC) (HCC) Start: 08-11-2023 End: 08-11-2023 Subsequent hospital visit by physician Varian [facility] Start: 08-10-2023 End: 08-10-2023 Subsequent hospital visit by physician Billing Only Appointments Radiation Oncology [facility] Comment on above: Arrived Start: 08-07-2023 End: 08-07-2023 Subsequent hospital visit by physician Vicki Diego MD Work Phone: [facility] Start: 08-06-2023 End: 08-06-2023 Subsequent hospital visit by physician Varian [facility] Start: 08-05-2023 End: 08-05-2023 ambulatory Stevie Escobedo DO Work Phone: [facility] Comment on above: Malignant neoplasm o f upper-outer quadrant of left breast in female, estrogen receptor positive (HCC) (HCC) Start: 08-04-2023 End: 08-04-2023 Subsequent hospital visit by physician Varian [facility] Start: 08-03-2023 End: 08-03-2023 Subsequent hospital visit by physician Billing Only Appointments Radiation Oncology [facility] Comment on above: Arrived Start: 08-01-2023 End: 08-01-2023 Subsequent hospital visit by physician Varian [facility] Start: 07-31-2023 End: 07-31-2023 ambulatory [facility] Start: 07-31-2023 End: 07-31-2023 Subsequent hospital visit by physician Jenny Serrato Ultras[facility] Comment on above: Thyroid nodule Nontoxic single thyr oid nodule Start: 07-30-2023 End: 07-30-2023 Subsequent hospital visit by physician Vicki Diego MD Work Phone: [facility] Start: 07-30-2023 End: 07-31-2023 ambulatory MARIE DEVI [facility] Start: 07-30-2023 End: 07-30-2023 Patient encounter procedure Marie Devi MD Work Phone: [facility] Comment on above: Parkinsonism, unspec ified Parkinsonism type (Primary Dx); Malignant neoplasm of right female breast, unspecified estrogen receptor status, unspecified site of breast (CMS/HCC); 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CMS/HCC); Medicare annual wellness visit, subsequent; Bilateral lower extremity edema Start: 07-29-2023 End: 07-29-2023 Subsequent hospital visit by physician Vicki Diego MD Work Phone: [facility] Start: 07-29-2023 Telephone encounter Stevie weaver DO Work Phone: [facility] Comment on above: Orders Start: 07-28-2023 End: 07-28-2023 Subsequent hospital visit by physician Vicki Diego MD Work Phone: [facility] Start: 07-27-2023 End: 07-27-2023 Subsequent hospital visit by physician Vicki Diego MD Work Phone: [facility] Comment on above: Arrived Start: 07-25-2023 End: 07-25-2023 Subsequent hospital visit by physician Dalia [facility] Start: 07-24-2023 End: 07-24-2023 Subsequent hospital visit by physician Dalia [facility] Start: 07-23-2023 End: 07-23-2023 Subsequent hospital visit by physician Vicki Diego MD Work Phone: [facility] Start: 07-22-2023 End: 07-22-2023 Subsequent hospital visit by physician Vicki Diego MD Work Phone: [facility] Start: 07-21-2023 End: 07-21-2023 Subsequent hospital visit by physician Varian [facility] Start: 07-20-2023 End: 07-20-2023 Subsequent hospital visit by physician Billing Only Appointments Radiation Oncology [facility] Comment on above: Arrived Start: 07-18-2023 End: 07-18-2023 Orders Only Stevie E Fanny DO Work Phone: [facility] Comment on above: Malignant neoplasm o f upper-outer quadrant of left breast in female, estrogen receptor positive (HCC) (HCC) (Primary Dx) Start: 07-17-2023 End: 07-17-2023 Subsequent hospital visit by physician Vicki Diego MD Work Phone: [facility] Start: 07-16-2023 End: 07-16-2023 Subsequent hospital visit by physician Varian [facility] Start: 07-15-2023 End: 07-15-2023 Subsequent hospital visit by physician Varian [facility] Start: 07-15-2023 End: 07-15-2023 ambulatory Stevie E Fanny DO Work Phone: [facility] Comment on above: Malignant neoplasm o f upper-outer quadrant of left breast in female, estrogen receptor positive (HCC) (HCC) Start: 07-15-2023 End: 07-15-2023 Office outpatient visit 25 minutes Stevie E Fanny DO Work Phone: [facility] Comment on above: Malignant neoplasm o f upper-outer quadrant of left breast in female, estrogen receptor positive (HCC) (HCC) (Primary Dx) Start: 07-14-2023 End: 07-14-2023 Subsequent hospital visit by physician Varian [facility] Start: 07-14-2023 Telephone encounter Darlene Shirley [facility] Start: 07-13-2023 End: 07-13-2023 Subsequent hospital visit by physician Billing Only Appointments Radiation Oncology [facility] Comment on above: Arrived Start: 07-11-2023 End: 07-11-2023 Subsequent hospital visit by physician Vicki Diego MD Work Phone: [facility] Start: 07-06-2023 End: 07-06-2023 Subsequent hospital visit by physician Vicki Diego MD Work Phone: [facility] Comment on above: Arrived Start: 07-03-2023 End: 07-03-2023 Subsequent hospital visit by physician Vicki Diego MD Work Phone: [facility] Comment on above: Malignant neoplasm o f upper-outer quadrant of left female breast, unspecified estrogen receptor status (HCC) Start: 07-03-2023 End: 07-03-2023 Office outpatient visit 25 minutes Vicki Diego MD Work Phone: [facility] Comment on above: Malignant neoplasm o f upper-outer quadrant of left breast in female, estrogen receptor positive (HCC) (Primary Dx) Start: 07-03-2023 End: 07-03-2023 Subsequent hospital visit by physician Billing Only Appointments Radiation Oncology [facility] Comment on above: Arrived Start: 07-01-2023 Orders Only Stevie alvarado DO Work Phone: [facility] Comment on above: Malignant neoplasm o f upper-outer quadrant of left breast in female, estrogen receptor positive (HCC) (Primary Dx) Start: 06-26-2023 End: 06-26-2023 Office outpatient visit 40 minutes Marie Devi MD Work Phone: [facility] Comment on above: Parkinsonism, unspec ified Parkinsonism type (Primary Dx); Toxic effect of chemotherapy; Dehydration; Malignant neoplasm of right female breast, unspecified estrogen receptor status, unspecified site of breast (CMS/HCC) Start: 06-26-2023 End: 06-26-2023 Subsequent hospital visit by physician Stevie Escobedo DO Work Phone: [facility] Non-Invasive Cardiology Comment on above: Encounter for monito ring cardiotoxic drug therapy Start: 06-24-2023 End: 06-24-2023 Office outpatient visit 25 minutes Stevie Escobedo DO Work Phone: [facility] Comment on above: Malignant neoplasm o f upper-outer quadrant of left breast in female, estrogen receptor positive (HCC) (Primary Dx) Start: 06-24-2023 End: 06-24-2023 ambulatory Stevie E Fanny DO Work Phone: [facility] Comment on above: Malignant neoplasm o f upper-outer quadrant of left breast in female, 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, estrogen receptor positive (HCC) (HCC) Start: 06-13-2023 End: 04-12-2024 Telephone encounter Tisha Fernandez RN Work Phone: [facility] Comment on above: Erroneous encounter- disregard Home Care (Start of care confirmation call) Start: 06-13-2023 End: 06-13-2023 ambulatory Stevie E Fanny DO Work Phone: [facility] Comment on above: Malignant neoplasm o f upper-outer quadrant of left breast in female, estrogen receptor positive (HCC) Start: 06-12-2023 Telephone encounter Darlene [facility] Start: 06-11-2023 Telephone encounter Lisa zarate RD Oncology Supportive Care Comment on above: Nutrition Counseling Start: 06-10-2023 Orders Only Stevie Lockhart l DO Work Phone: [facility] ONC Comment on above: Malignant neoplasm o f upper-outer quadrant of left breast in female, estrogen receptor positive (HCC) (Primary Dx) Start: 06-09-2023 Telephone encounter Stevie jacobsbel DO Work Phone: [facility] Comment on above: Lab Orders Start: 06-04-2023 Telephone encounter Darlene [facility] Start: 06-03-2023 End: 06-03-2023 Subsequent hospital visit by physician Stevie Escobedo DO Work Phone: [facility] US Imaging Comment on above: Malignant neoplasm o f upper-outer quadrant of left breast in female, estrogen receptor positive (HCC) ; Localized edema Start: 06-03-2023 Telephone encounter Stevie Mock oebel DO Work Phone: [facility] Oncology Comment on above: Orders Start: 06-03-2023 End: 06-03-2023 Office outpatient visit 25 minutes Stevie E Fanny DO Work Phone: [facility] Oncology Comment on above: Malignant neoplasm o f upper-outer quadrant of left breast in female, estrogen receptor positive (HCC) (Primary Dx); Encounter for monitoring cardiotoxic drug therapy Start: 06-03-2023 End: 06-03-2023 ambulatory Stevie E Fanny DO Work Phone: [facility] Comment on above: Malignant neoplasm o f upper-outer quadrant of left breast in female, estrogen receptor positive (HCC) ; Falling; Hypotension, unspecified hypotension type Start: 05-27-2023 Telephone encounter Diana Polanco [facility] Start: 05-27-2023 End: 05-27-2023 ambulatory Stevie E Fanny DO Work Phone: [facility] Comment on above: Malignant neoplasm o f upper-outer quadrant of left breast in female, estrogen receptor positive (HCC) Start: 05-23-2023 End: 05-23-2023 Orders Only Stevie E Fanny DO Work Phone: [facility] Oncology Comment on above: Malignant neoplasm o f upper-outer quadrant of left breast in female, estrogen receptor positive (HCC) (Primary Dx) Malignant neoplasm o f upper-outer quadrant of left breast in female, estrogen receptor positive (HCC) Start: 05-20-2023 End: 05-20-2023 Orders Only Stevie E Fanny DO Work Phone: [facility] Comment on above: Malignant neoplasm o f upper-outer quadrant of left breast in female, estrogen receptor positive (HCC) (Primary Dx) Malignant neoplasm o f upper-outer quadrant of left breast in female, estrogen receptor positive (HCC) Start: 05-20-2023 End: 05-20-2023 Office outpatient visit 25 minutes Stevie E Fanny DO Work Phone: [facility] Comment on above: Malignant neoplasm o f upper-outer quadrant of left breast in female, estrogen receptor positive (HCC) (Primary Dx) Start: 05-13-2023 End: 05-13-2023 ambulatory Stevie E Fanny DO Work Phone: [facility] Comment on above: Malignant neoplasm o f upper-outer quadrant of left breast in female, estrogen receptor positive (HCC) Start: 05-12-2023 Telephone encounter Stevie jacobsbel DO Work Phone: [facility] Oncology Comment on above: order for ECHO Start: 05-08-2023 Orders Only Stevie E Goebe l DO Work Phone: [facility] Oncology Comment on above: Malignant neoplasm o f upper-outer quadrant of left breast in female, estrogen receptor positive (HCC) (Primary Dx) Start: 05-06-2023 End: 05-06-2023 Office outpatient visit 25 minutes Stevie E Fanny DO Work Phone: [facility] Comment on above: Malignant neoplasm o f upper-outer quadrant of left breast in female, estrogen receptor positive (HCC) (Primary Dx) Start: 05-06-2023 End: 05-06-2023 ambulatory Stevie E Fanny DO Work Phone: [facility] Comment on above: Malignant neoplasm o f upper-outer quadrant of left breast in female, estrogen receptor positive (HCC) Start: 05-01-2023 Orders Only Stevie E Goebe l DO Work Phone: [facility] Comment on above: Malignant neoplasm o f upper-outer quadrant of left breast in female, estrogen receptor positive (HCC) (Primary Dx) Start: 04-29-2023 End: 04-29-2023 ambulatory Stevie E Fanny DO Work Phone: [facility] Comment on above: Malignant neoplasm o f upper-outer quadrant of left breast in female, estrogen receptor positive (HCC) Start: 04-23-2023 Orders Only Stevie E Goebe l DO Work Phone: [facility] Comment on above: Malignant neoplasm o f upper-outer quadrant of left breast in female, estrogen receptor positive (HCC) (Primary Dx) Start: 04-22-2023 End: 04-22-2023 Office outpatient visit 25 minutes Stevie E Fanny DO Work Phone: [facility] Comment on above: Malignant neoplasm o f upper-outer quadrant of left breast in female, estrogen receptor positive (HCC) (Primary Dx) Start: 04-22-2023 End: 04-22-2023 ambulatory Stevie E Fanny DO Work Phone: [facility] Comment on above: Malignant neoplasm o f upper-outer quadrant of left breast in female, estrogen receptor positive (HCC) Start: 04-15-2023 Orders Only Stevie E Goebe l DO Work Phone: [facility] Start: 04-09-2023 Orders Only Stevie E Goebe l DO Work Phone: [facility] Comment on above: Malignant neoplasm o f upper-outer quadrant of left breast in female, estrogen receptor positive (HCC) (Primary Dx) Start: 04-08-2023 End: 04-08-2023 Office outpatient visit 25 minutes Stevie E Fanny DO Work Phone: [facility] Comment on above: Malignant neoplasm o f upper-outer quadrant of left breast in female, estrogen receptor positive (HCC) (Primary Dx) Start: 04-08-2023 End: 04-08-2023 ambulatory Stevie E Fanny DO Work Phone: [facility] Comment on above: Malignant neoplasm o f upper-outer quadrant of left breast in female, 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, estrogen receptor positive (HCC) (HCC) Start: 04-02-2023 Orders Only Stevie E Goebe l DO Work Phone: [facility] Comment on above: Malignant neoplasm o f upper-outer quadrant of left breast in female, estrogen receptor positive (HCC) (Primary Dx) Start: 04-01-2023 End: 04-01-2023 ambulatory Stevie E Fanny DO Work Phone: [facility] Comment on above: Malignant neoplasm o f upper-outer quadrant of left breast in female, estrogen receptor positive (HCC) Start: 03-31-2023 End: 03-31-2023 ambulatory Stevie E Fanny DO Work Phone: [facility] Comment on above: Arrived Start: 03-26-2023 End: 03-26-2023 Orders Only Stevie E Fanny DO Work Phone: [facility] Comment on above: Malignant neoplasm o f upper-outer quadrant of left breast in female, estrogen receptor positive (HCC) (Primary Dx) Malignant neoplasm o f upper-outer quadrant of left breast in female, estrogen receptor positive (HCC) ; Other general symptoms and signs Start: 03-24-2023 Refill Stevie E Goebe l DO Work Phone: [facility] Comment on above: Malignant neoplasm o f upper-outer quadrant of left breast in female, estrogen receptor positive (HCC) Start: 03-18-2023 End: 03-18-2023 Office outpatient new 60 minutes Stevie E Fanny DO Work Phone: [facility] Comment on above: Malignant neoplasm o f upper-outer quadrant of left breast in female, estrogen receptor positive (HCC) (Primary Dx); Other general symptoms and signs Start: 03-06-2023 End: 03-06-2023 Office outpatient new 60 minutes Vicki Diego MD Work Phone: [facility] RAD ONC Comment on above: Malignant neoplasm o f upper-outer quadrant of left breast in female, estrogen receptor positive (HCC) (Primary Dx) Start: 02-27-2023 End: 02-27-2023 Patient encounter procedure Torrie Choi MD Work Phone: General Surgery Comment on above: Malignant neoplasm o f upper-outer quadrant of left breast in female, estrogen receptor positive (HCC) (Primary Dx) Start: 02-26-2023 Telephone encounter Torrie Choi MD Work Phone: General Surgery Start: 02-12-2023 End: 02-12-2023 Office outpatient visit 25 minutes Marie Devi MD Work Phone: [facility] Comment on above: Depression with anxi ety (Primary Dx); Repeated falls; Parkinsonism, unspecified Parkinsonism type (CMS/HCC); Bilateral lower extremity edema Start: 02-12-2023 End: 02-12-2023 Subsequent hospital visit by physician Procedure Mammo [facility] Work Phone: Mammography Comment on above: Malignant neoplasm o f upper-outer quadrant of left breast in female, estrogen receptor positive (HCC) [C50.412, Z17.0] Start: 02-10-2023 ambulatory Florida Hou MD Work Phone: Mammography Comment on above: Radio Imaging Study Comments Start: 02-10-2023 Patient encounter procedure Floirda Hou MD Work Phone: [facility] Start: 02-06-2023 Telephone encounter Torrie Choi MD Work Phone: General Surgery Comment on above: Patient Update Start: 02-05-2023 Telephone encounter Torrie Choi MD Work Phone: General Surgery Comment on above: surgery concerns Start: 02-05-2023 End: 02-05-2023 Admission to establishment [place] [id number] Work Phone: [facility] Start: 02-05-2023 End: 02-05-2023 [place] [id number] Work Phone: Pre Anesthesia Comment on above: Pre-op evaluation (P rimary Dx); Past history of allergy to penicillin-type antibiotic; MARCY on CPAP; History of uterine cancer; Cerebrovascular accident (CVA), unspecified mechanism (HCC); Anxiety and depression; Parkinsonism, unspecified Parkinsonism type (HCC); Personal history of penicillin allergy Start: 02-05-2023 End: 02-05-2023 Preprocedural examination done [place] [id number] Work Phone: [facility] Work Phone: Start: 02-03-2023 End: 02-03-2023 Orders Only Torrie Choi MD Work Phone: General Surgery Comment on above: Malignant neoplasm o f upper-outer quadrant of left breast in female, estrogen receptor positive (HCC) (Primary Dx) Start: 01-29-2023 Telephone encounter Katie Alvarez RN Work Phone: Mammography Comment on above: Results Start: 01-28-2023 End: 01-28-2023 Subsequent hospital visit by physician Procedure Mammo [facility] Work Phone: Mammography Comment on above: Abnormal finding on radiological examination of breast [R92.8] Start: 01-23-2023 End: 01-23-2023 Office outpatient visit 25 minutes Marie Devi MD Work Phone: [facility] Comment on above: Parkinsonism, unspec ified Parkinsonism type (CMS/HCC) (Primary Dx); Depression with anxiety; Repeated falls; 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CMS/HCC) Start: 01-21-2023 End: 01-21-2023 Orders Only Jannette Mendez MD Work Phone: Mammography Comment on above: Abnormal finding on radiological examination of breast (Primary Dx) Abnormal finding on radiological examination of breast [R92.8] Start: 11-27-2022 End: 11-27-2022 Subsequent hospital visit by physician Screen/Diagnostic Mammo [facility] Work Phone: Mammography Comment on above: Encounter for screen ing mammogram for malignant neoplasm of breast [Z12.31] Start: 10-30-2022 End: 10-30-2022 Patient encounter procedure Dara Sorensen DO Work Phone: [facility] Comment on above: Seborrheic keratosis (Primary Dx); Pigmented skin lesion suspicious for malignant neoplasm Start: 10-24-2022 End: 10-24-2022 Office outpatient visit 15 minutes Dara Sorensen DO Work Phone: [facility] Comment on above: Seborrheic keratosis (Primary Dx) Start: 09-26-2022 ambulatory MD MARIE DEVI Fac ility:[id number] Start: 08-13-2022 AUDIT Marie Devi Work Phone: [facility] Work Phone: Start: 07-19-2022 Chart Update Marie Devi Work Phone: [facility] Work Phone: Start: 07-17-2022 Chart Update Marie Devi Work Phone: [facility] Work Phone: Start: 07-17-2022 Office outpatient vi sit 25 minutes Marie Devi Work Phone: [facility] Work Phone: Start: 07-17-2022 ambulatory MD MARIE DEVI Fac ility:[id number] Start: 01-10-2022 Office outpatient vi sit 25 minutes Marie Devi Work Phone: [facility] Work Phone: Start: 12-13-2021 AUDIT Marie Devi Work Phone: [facility] Work Phone: Start: 09-22-2021 Chart Update Marie Devi Work Phone: [facility] Work Phone: Start: 09-21-2021 Documentation procedure Mammog ari Coordinator [facility] Start: 09-21-2021 Letter encounter Mammography Coordinator [facility] Department Start: 09-21-2021 End: 09-21-2021 Subsequent hospital visit by physician Screen/Diagnostic Mammo [facility] Work Phone: Mammography Comment on above: Encounter for screen ing mammogram for malignant neoplasm of breast [Z12.31] Start: 07-13-2021 Chart Update Marie Devi Work Phone: [facility] Work Phone: Start: 01-11-2021 AUDIT Marie Devi Work Phone: [facility] Work Phone: Start: 01-10-2021 Office outpatient vi sit 25 minutes Marie Devi Work Phone: [facility] Work Phone: Start: 11-11-2020 Rx Renewal Marie Devi Work Phone: [facility] Work Phone: Start: 07-12-2020 Patient encounter procedure Marie Devi [facility] Work Phone: Start: 2020 Patient encounter procedure Marie Devi [facility] Work Phone: Start: 01-06-2020 Patient encounter procedure Marie Devi [facility] Work Phone: Start: 07-06-2019 Patient encounter procedure Marie Devi [facility] Work Phone: Start: 12-29-2018 Patient encounter procedure Marie Devi [facility] Work Phone: Start: 06-26-2018 Patient encounter procedure Marie Devi [facility] Work Phone: Patient encounter procedure Marie Devi Work Phone: [facility] Work Phone: Procedures Date Procedure Procedure Detail Performing Clinician Start: 09-17-2024 25-hydroxyvitamin D3 [Mass/volume] in Serum or Plasma Leonardo R Stanec DO Work Phone: Start: 09-17-2024 Cobalamin (Vitamin B 12) [Mass/volume] in Serum or Plasma Leonardo R Stanec DO Work Phone: Start: 09-17-2024 Comprehensive metabolic panel Leonardo R Stanec DO Work Phone: Start: 09-17-2024 Hemoglobin A1c measurement Leonardo R Stanec DO Work Phone: Start: 09-17-2024 TSH WITH REFLEX TO F REE T4 IF ABNORMAL Leonardo R Stanec DO Work Phone: Start: 03-25-2024 Screening digital br east tomosynthesis bi Lucius Dubose PA-C Work Phone: Start: 10-27-2023 Basic metabolic pane l calcium total Elo Saklecha MD Work Phone: Start: 10-23-2023 Basic metabolic pane l calcium total Elo Manley MD Work Phone: Start: 10-20-2023 Basic metabolic pane l calcium total Elo Manley MD Work Phone: Start: 10-16-2023 Basic metabolic pane l calcium total Elo Manley MD Work Phone: Start: 09-23-2023 Blood count complete auto&auto difrntl wbc Stevie E Fanny DO Work Phone: Start: 09-18-2023 Echo tthrc r-t 2d w/ wom-mode compl spec&colr d Stevie E Fanny DO Work Phone: Start: 09-05-2023 Dxa bone density torri dy 1/> sites axial skel Stevie E Fanny DO Work Phone: Start: 09-02-2023 Blood count complete auto&auto difrntl wbc Stevie E Fanny DO Work Phone: Start: 09-02-2023 Comprehensive metabo lic 2000 panel - Serum or Plasma Stevie E Fanny DO Work Phone: Start: 08-12-2023 Blood count complete auto&auto difrntl wbc Stevie E Fanny DO Work Phone: Start: 08-05-2023 Blood count complete auto&auto difrntl wbc Stevie E Fanny DO Work Phone: Start: 07-31-2023 US THYROID MARIE Vargas Start: 07-30-2023 US THYROID MARIE Vargas Start: 07-30-2023 Us soft tissue head & neck real time imge docm Marie Devi MD Work Phone: Start: 07-30-2023 US THYROID MARIE Vargas Start: 07-30-2023 Us soft tissue head & neck real time imge docm Marie Devi MD Work Phone: Start: 07-15-2023 Comprehensive metabolic panel Stevie E Fanny DO Work Phone: Start: 06-26-2023 Echo tthrc r-t 2d w/ wom-mode compl spec&colr d Stevie E Fanny DO Work Phone: Start: 06-24-2023 Comprehensive metabolic panel Stevie E Fanny DO Work Phone: Start: 06-03-2023 Urinalysis complete panel - Urine Stevie E Fanny DO Work Phone: Start: 06-03-2023 Urnls dip stick/tabl et reagent auto microscopy Stevie E Fanny DO Work Phone: Start: 06-03-2023 Comprehensive metabolic panel Stevie E Fanny DO Work Phone: Start: 05-27-2023 Comprehensive metabolic panel Stevie E Fanny DO Work Phone: Start: 05-20-2023 Comprehensive metabolic panel Stevie E Fanny DO Work Phone: Start: 05-13-2023 Comprehensive metabolic panel Stevie E Fanny DO Work Phone: Start: 05-06-2023 Comprehensive metabolic panel Stevie E Fanny DO Work Phone: Start: 04-29-2023 End: 04-29-2023 Comprehensive metabolic panel Stevie E G oebel DO Work Phone: Start: 04-22-2023 Comprehensive metabolic panel Stevie E Fanny DO Work Phone: Start: 04-08-2023 Comprehensive metabolic panel Stevie E Fanny DO Work Phone: Start: 04-01-2023 Comprehensive metabolic panel Stevie E Fanny DO Work Phone: Start: 03-26-2023 Echo tthrc r-t 2d w/ wom-mode compl spec&colr d Stevie Sam Fanny DO Work Phone: Start: 02-12-2023 Perq breast loc phylicia ce placemt 1st lesio us imag Torrie Choi MD Work Phone: Start: 02-05-2023 CBC W Auto Different ial panel - Blood MARIE DEVI Start: 02-05-2023 Comprehensive metabo lic 2000 panel - Serum or Plasma MARIE DEVI Start: 02-05-2023 Natriuretic peptide B [Mass/volume] in Blood MARIE DEVI Start: 02-05-2023 TSH WITH REFLEX TO F REE T4 IF ABNORMAL MARIE DEVI Start: 02-05-2023 URINALYSIS MICROSCOPIC ONLY MARIE DEVI Start: 02-05-2023 URINALYSIS WITH REFL EX MICROSCOPIC MARIE DEVI Start: 01-28-2023 Diagnostic mammograp hy computer-aided detcj uni Cm Rausch MD Work Phone: Start: 01-28-2023 Bx breast w/device 1 st lesion ultrasound guid Jannette Mendez MD Work Phone: Start: 01-21-2023 Us breast uni real t ana with image limited Jannette Mendez MD Work Phone: Start: 01-21-2023 Digital breast tomos ynthesis unilateral Marie Devi MD Work Phone: Start: 10-30-2022 EPIDERMAL / DERMAL SHAVING Dara Sorensen DO Work Phone: Start: 07-17-2022 Lipid 1996 panel - S alfredo or Plasma Dara Sorensen DO Work Phone: Start: 09-21-2021 Screening mammograph y bi 2-view breast inc cad Marie Devi MD Work Phone: Start: 07-12-2020 MG Breast screening Bryn jb Devi Start: 01-06-2020 Assay of free thyroxine Marie Devi Start: 01-06-2020 Assay of thyroid sti mulating hormone tsh Marie Devi Start: 01-06-2020 Assay of triiodothyr onine t3 free Marie Devi Start: 01-06-2020 Microsomal antibodies each Marie Devi Start: 01-05-2020 Xray Bone Density, D exa 1 or More Sites Marie Devi Start: 06-18-2010 Adult depression scr eening assessment Screen/Diagnostic Hosp Work Phone: History of Breast Woods rgery Lumpectomy Marie Devi Hysterectomy Marie Devi Plan of Treatment Date Care Activity Detail Author Start: 09-01-2033 DTaP/Tdap/Td Vaccine s (2 - Td or Tdap) DTaP/Tdap/Td Vaccines (2 - Td or Tdap) [facility] Start: 09-01-2033 Urine microalbumin profile DTaP,Tdap,Td Vaccine (2 - Td or Tdap) [facility] Start: 07-17-2027 Lipid panel Lipid Panel [facility] Start: 10-26-2026 Diabetes Screening Diabetes Screenin g [facility] Start: 03-24-2026 Oncology Follow-Up: Breast Cancer Survivorship Plan (#5) Oncology Follow-Up: Breast Cancer Survivorship Plan (#5) [facility] Start: 02-05-2026 DIABETES SCREEN DIABETES SCREEN [facility] Start: 09-22-2025 Oncology Follow-Up: Breast Cancer Survivorship Plan (#4) Oncology Follow-Up: Breast Cancer Survivorship Plan (#4) [facility] Start: 09-18-2025 Medicare Annual Well ness Visit Medicare Annual Wellness Visit (AWV) [facility] Start: 09-02-2025 DIABETES SCREEN DIABETES SCREEN [facility] Start: 04-12-2025 End: 04-12-2025 Patient encounter procedure 04/12/2025 8:45 AM EDT Office Visit [facility] Oncology [facility] [address] [place] [address] Stevie Escobedo DO [address] [place] [address] [facility] Oncology [facility] Start: 03-26-2025 End: 10-08-2025 DBT Breast - bilateral screening Bilateral screening mammogram with tomosynthesis Imaging Routine Malignant neoplasm of upper-outer quadrant of left breast in female, estrogen receptor positive (HCC) Expected: 03/26/2025, Expires: 10/08/2025 [facility] [email or web address] Work Phone: Comment on above: Expected: 03/26/2025 , Expires: 10/08/2025 Start: 03-24-2025 Oncology Follow-Up: Breast Cancer Survivorship Plan (#3) Oncology Follow-Up: Breast Cancer Survivorship Plan (#3) [facility] Start: 03-16-2025 End: 03-16-2025 Patient encounter procedure 03/16/2025 1:30 PM EDT Appointment [facility] Radiation Oncology - [place] [address] [place] [phone] Stevie Escobedo DO [address] [facility] [address] [place] [address] Vicki Diego MD [address] [facility] [address] [place], [place] [id number] [facility] Radiation Oncology - [place] Start: 01-26-2025 End: 01-26-2025 Patient encounter procedure 01/26/2025 8:00 AM EDT Office Visit [facility] [address] [place] [phone] Leonardo Santos DO [address] [facility] [place], [place] [id number] [facility] Start: 09-22-2024 Screening for malign ant neoplasm of breast Mammogram: Breast Cancer Survivorship Plan (#2) [facility] Start: 08-10-2024 End: 08-10-2024 Patient encounter procedure [facility] Start: 07-31-2024 Medicare Annual Well ness Visit Medicare Annual Wellness Visit (AWV) [facility] Start: 06-23-2024 Medicare Advantage Annual Wellness Visit Medicare Advantage Annual Wellness Visit [facility] Start: 03-25-2024 End: 03-25-2024 Patient encounter procedure 03/25/2024 2:20 PM EDT Appointment Mammography [address] [place] [address] Procedure: LEE SCREENING W SHIVA Mammography Comment on above: Procedure: LEE SCREE MAZIN W SHIVA Start: 03-24-2024 Complete blood count ONCBCN Woods rvivorship Screening (#1) [facility] Start: 03-24-2024 Screening for malign ant neoplasm of breast Mammogram: Breast Cancer Survivorship Plan (#1) [facility] Start: 03-17-2024 End: 03-17-2024 Patient encounter procedure 03/17/2024 2:30 PM EDT Appointment [facility] [address] [place] [phone] Stevie Escobedo DO [address] [facility] [address] [place], [place] [id number] Vicki Diego MD [address] [facility] [address] [place] [address] [facility] Start: 02-22-2024 COVID-19 Vaccine ( season) COVID-19 Vaccine ( season) [facility] Start: 02-22-2024 Covid-19 Vaccine ( season) Covid-19 Vaccine ( season) [facility] Start: 02-22-2024 Influenza vaccination Influenza Vacc ine (#1) [facility] Start: 02-19-2024 End: 02-19-2024 Patient encounter procedure 02/19/2024 9:15 AM EDT Office Visit General Surgery [address] [facility] [address] [place] [address] Torrie Choi MD [address] [facility] [address] [place] [address] follow up General Surgery Comment on above: follow up Start: 02-18-2024 End: 02-18-2024 Patient encounter procedure 02/18/2024 7:00 AM EDT Office Visit [facility] [address] [facility] [address] [place] [phone] Marie Devi MD [address] [facility] [place] [address] [facility] Start: 02-03-2024 End: 02-03-2024 Patient encounter procedure 02/03/2024 9:30 AM EDT Office Visit [facility] [address] [place], [place] [id number] Stevie Escobedo DO [address] [place] [place] [address] [facility] Start: 01-12-2024 Depression Monitoring Depression [facility] Start: 01-12-2024 Depresssion Monitoring Depresssion [facility] Start: 12-16-2023 End: 12-16-2023 Patient encounter procedure 12/16/2023 9:30 AM EDT Office Visit [facility] [address] [place] [address] Stevie Escobedo DO [address] [place], [place] [id number] [facility] Start: 12-16-2023 End: 12-16-2023 ambulatory 12/16/2023 9:00 AM EDT Infusion [facility] [address] [place] [address] Stevie Escobedo DO [address] [place] [address] [facility] Start: 12-03-2023 End: 12-03-2023 Patient encounter procedure 12/03/2023 9:00 AM EDT [facility]ointment [facility] [address] [place] [address] Dara Kearney, UPPER DOUBLER [facility] Start: 12-01-2023 End: 12-01-2023 Home visit 12/01/2023 9:00 AM EDT Home [facility] Visit [facility] [address] [place] [address] Dara Kearney, PATRIC [facility] Start: 11-27-2023 End: 11-27-2023 Home visit 11/27/2023 8:00 AM EDT [facility] [address] [place] [address] Dara Kearney, UPPER DOUBLER [facility] Start: 11-26-2023 End: 11-26-2023 Patient encounter procedure 11/26/2023 9:00 AM EDT Appointment [facility] [address] [place] [address] Hugo Louise RN [facility] Start: 11-25-2023 End: 11-25-2023 Home visit 11/25/2023 10:00 AM EDT [facility] [address] [place] [address] Dara Kearney, PATRIC [facility] Start: 11-25-2023 End: 11-25-2023 ambulatory 11/25/2023 9:00 AM EDT Infusion [facility] [address] [place] [phone] Stevie Escobedo DO [address] [place] [address] [facility] Start: 11-20-2023 End: 11-20-2023 Home visit [facility] Start: 11-19-2023 End: 11-19-2023 Home visit 11/19/2023 8:00 AM EDT [facility] [address] [place] [address] Hugo Louise, HANNAH [facility] Start: 11-18-2023 End: 11-18-2023 Home visit 11/18/2023 12:30 PM EDT [facility] [address] [place] [address] Dara Kearney, UPPER DOUBLER [facility] Start: 11-13-2023 End: 11-13-2023 Home visit 11/13/2023 12:30 PM EDT [facility] [address] [place] [address] Dara Kearney, PATRIC [facility] Start: 11-12-2023 End: 11-12-2023 Home visit [facility] Start: 11-04-2023 End: 11-03-2024 CBC W Auto Differential panel - Blood CBC auto differential Lab STAT Malignant neoplasm of upper-outer quadrant of left breast in female, estrogen receptor positive (HCC) Expected: 11/04/2023, Expires: 11/03/2024 [facility] Work Phone: Comment on above: Expected: 11/04/2023 , Expires: 11/03/2024 Start: 11-04-2023 End: 11-03-2024 Comprehensive metabolic 2000 panel - Serum or Plasma Comprehensive Metabolic Panel - [facility] STAT Malignant neoplasm of upper-outer quadrant of left breast in female, estrogen receptor positive (HCC) Expected: 11/04/2023, Expires: 11/03/2024 [facility] Comment on above: Expected: 11/04/2023 , Expires: 11/03/2024 Start: 11-04-2023 End: 11-04-2023 ambulatory 11/04/2023 10:00 AM EDT Infusion [facility] [address] [place] [phone] Stevie Escobedo DO [address] [place] [address] [facility] Start: 11-04-2023 End: 11-04-2023 Patient encounter procedure 11/04/2023 9:45 AM EDT Office Visit [facility] [address] 1[address] [place] [address] Stevie Escobedo DO [address] [place] [address] [facility] Start: 10-14-2023 End: 10-13-2024 CBC W Auto Differential panel - Blood CBC auto differential Lab STAT Malignant neoplasm of upper-outer quadrant of left breast in female, estrogen receptor positive (HCC) (HCC) Expected: 10/14/2023, Expires: 10/13/2024 [facility] Work Phone: Comment on above: Expected: 10/14/2023 , Expires: 10/13/2024 Start: 10-14-2023 End: 10-13-2024 Comprehensive metabolic 2000 panel - Serum or Plasma Comprehensive Metabolic Panel - [facility] STAT Malignant neoplasm of upper-outer quadrant of left breast in female, estrogen receptor positive (HCC) (HCC) Expected: 10/14/2023, Expires: 10/13/2024 [facility] Comment on above: Expected: 10/14/2023 , Expires: 10/13/2024 Start: 10-14-2023 End: 10-14-2023 Patient encounter procedure [facility] Start: 10-14-2023 End: 10-14-2023 ambulatory [facility] Start: 09-23-2023 End: 09-22-2024 CBC W Auto Differential panel - Blood CBC auto differential Lab STAT Malignant neoplasm of upper-outer quadrant of left breast in female, estrogen receptor positive (HCC) (HCC) Expected: 09/23/2023, Expires: 09/22/2024 [facility] Work Phone: Comment on above: Expected: 09/23/2023 , Expires: 09/22/2024 Start: 09-23-2023 End: 09-22-2024 Comprehensive metabolic 2000 panel - Serum or Plasma Comprehensive Metabolic Panel - [facility] STAT Malignant neoplasm of upper-outer quadrant of left breast in female, estrogen receptor positive (HCC) (HCC) Expected: 09/23/2023, Expires: 09/22/2024 [facility] Comment on above: Expected: 09/23/2023 , Expires: 09/22/2024 Start: 09-23-2023 End: 09-23-2023 ambulatory [facility] Start: 09-18-2023 End: 07-29-2025 US Heart Transthoracic Transthoracic echocardiogram (TTE) complete with contrast, bubble, strain, and 3D PRN CV Echocardiography Routine Admission for therapeutic drug monitoring Encounter for monitoring cardiotoxic drug therapy Expected: 09/18/2023 (Approximate), Expires: 07/29/2025 [facility] Work Phone: Comment on above: Expected: 09/18/2023 (Approximate), Expires: 07/29/2025 Start: 09-18-2023 End: 09-18-2023 Patient encounter procedure [facility] Non-Invasive Cardiology Start: 09-16-2023 End: 09-16-2023 ambulatory 09/16/2023 1:00 PM EDT Infusion [facility] [address] [place] [phone] Stevie Escobedo DO [address] [place], [place] [phone] [facility] Start: 09-12-2023 End: 09-12-2023 Patient encounter procedure 09/12/2023 1:30 PM EDT Appointment [facility] [address] [place] [address] Vicki Diego MD [address] [place] [address] [facility] Start: 09-11-2023 End: 09-11-2023 Patient encounter procedure 09/11/2023 1:30 PM EDT Appointment [facility] [address] [place] [phone] Vicki Diego MD [address] [place] [address] [facility] Start: 09-05-2023 End: 09-05-2023 Patient encounter procedure [facility] Start: 09-05-2023 Subsequent hospital visit by physician 09/05/2023 10:00 AM EDT Hospital Encounter [facility] [place] [facility] [address] [place] [address] Stevie Escobedo DO [address] [place] [address] [facility] [place] [facility] Start: 09-02-2023 End: 09-02-2024 Comprehensive metabolic 2000 panel - Serum or Plasma Comprehensive Metabolic Panel - [facility] STAT Malignant neoplasm of upper-outer quadrant of left breast in female, estrogen receptor positive (HCC) (HCC) Expected: 09/02/2023, Expires: 09/02/2024 [facility] [employer] Work Phone: Comment on above: Expected: 09/02/2023 , Expires: 09/02/2024 Start: 09-02-2023 End: 09-01-2024 DXA Skeletal system.axial Views for bone density DEXA bone density axial skeleton Imaging Routine Malignant neoplasm of upper-outer quadrant of left breast in female, estrogen receptor positive (HCC) (HCC) Asymptomatic menopausal state Encounter for monitoring anastrozole therapy Expected: 09/02/2023, Expires: 09/01/2024 [facility] [employer] Work Phone: Comment on above: Expected: 09/02/2023 , Expires: 09/01/2024 Start: 09-02-2023 End: 09-02-2023 ambulatory 09/02/2023 9:00 AM EDT Infusion [facility] [address] [place] [address] Stevie Escobedo DO [address] [place] [address] [facility] Start: 09-02-2023 End: 09-02-2023 Patient encounter procedure 09/02/2023 8:45 AM EDT Office Visit [facility] [address] [place] [address] Stevie Escobedo, DO [address] [place] [address] [facility] Start: 08-26-2023 End: 08-26-2023 Patient encounter procedure 08/26/2023 9:45 AM EST Office Visit [facility] [address] [place] [address] Stevie Escobedo, DO [address] [place] [address] [facility] Start: 08-26-2023 End: 08-26-2023 ambulatory 08/26/2023 9:00 AM EST Infusion [facility] [address] [place] [address] Stevie Escobedo, DO [address] [place] [address] [facility] Start: 08-12-2023 End: 08-12-2023 Patient encounter procedure 08/12/2023 1:15 PM EST Appointment [facility] [address] [place] [address] [facility] Start: 08-12-2023 End: 08-12-2023 ambulatory 08/12/2023 8:00 AM EST Infusion [facility] [address] [place] [address] Stevie Escobedo DO [address] [place] [address] [facility] Start: 08-11-2023 End: 08-11-2023 Patient encounter procedure [facility] Start: 08-08-2023 End: 08-08-2023 Patient encounter procedure [facility] Start: 08-07-2023 End: 08-07-2023 Patient encounter procedure [facility] Start: 08-06-2023 End: 08-06-2023 Patient encounter procedure [facility] Start: 08-05-2023 End: 08-05-2023 Patient encounter procedure [facility] Start: 08-05-2023 End: 08-05-2023 ambulatory 08/05/2023 9:00 AM EST Infusion [facility] [address] [place] [address] Stevie Escobedo DO [address] [place] [address] [facility] Start: 08-04-2023 End: 08-04-2023 Patient encounter procedure [facility] Start: 08-01-2023 End: 08-01-2023 Patient encounter procedure [facility] Start: 07-31-2023 End: 07-31-2023 Patient encounter procedure [facility] Start: 07-30-2023 End: 07-30-2023 Patient encounter procedure [facility] Start: 07-30-2023 End: 07-30-2023 Patient encounter procedure 07/30/2023 7:10 AM EST Office Visit [facility] [address] [facility] [address] [place] [address] Marie Devi MD [address] [facility], [address] [place], [place] [address] [facility] Start: 07-29-2023 End: 07-29-2023 Patient encounter procedure [facility] Start: 07-28-2023 End: 07-28-2023 Patient encounter procedure [facility] Start: 07-25-2023 End: 07-25-2023 Patient encounter procedure [facility] Start: 07-24-2023 End: 07-24-2023 Patient encounter procedure [facility] Start: 07-23-2023 End: 07-23-2023 Patient encounter procedure [facility] Start: 07-22-2023 End: 07-22-2023 Patient encounter procedure [facility] Start: 07-21-2023 End: 07-21-2023 Patient encounter procedure [facility] Start: 07-18-2023 End: 07-18-2023 Patient encounter procedure 07/18/2023 4:15 PM EST Appointment [facility] [address] [place] [address] [facility] Start: 07-18-2023 Medicare Annual Well ness Visit Medicare Annual Wellness Visit (AWV) [facility] Start: 07-18-2023 End: 07-18-2023 Patient encounter procedure 07/18/2023 1:15 PM EST Appointment [facility] [address] [place] [address] [facility] Start: 07-17-2023 End: 07-17-2023 Patient encounter procedure 07/17/2023 4:15 PM EST Appointment [facility] [address] [place] [address] Vicki Diego MD [address] [place] [address] [facility] Start: 07-17-2023 End: 07-17-2023 Patient encounter procedure 07/17/2023 2:45 PM EST Appointment [facility] [address] [place] [address] Vicki Diego MD [address] [facility] [address] [place] [address] [facility] Start: 07-16-2023 End: 07-16-2023 Patient encounter procedure 07/16/2023 4:15 PM EST Appointment [facility] [address] [place] [address] [facility] Start: 07-15-2023 End: 07-15-2023 ambulatory [facility] Comment on above: Arrived Start: 07-15-2023 End: 07-15-2023 Patient encounter procedure [facility] Start: 07-14-2023 End: 07-14-2023 Patient encounter procedure 07/14/2023 4:15 PM EST Appointment [facility] [address] [place] [address] [facility] Start: 07-11-2023 End: 07-11-2023 Patient encounter procedure 07/11/2023 2:15 PM EST Appointment [facility] [address] [place] [address] Vicki Diego MD [address] [facility] [address] [place] [address] [facility] Start: 07-03-2023 End: 07-03-2023 Patient encounter procedure [facility] Start: 06-26-2023 End: 05-12-2025 US Heart Transthoracic Transthoracic echocardiogram (TTE) complete with contrast, bubble, strain, and 3D PRN CV Echocardiography Routine Encounter for monitoring cardiotoxic drug therapy Expected: 06/26/2023 (Approximate), Expires: 05/12/2025 [facility] Work Phone: Comment on above: Expected: 06/26/2023 (Approximate), Expires: 05/12/2025 Start: 06-26-2023 End: 06-26-2023 Patient encounter procedure 06/26/2023 11:00 AM EST Appointment [facility] Non-Invasive Cardiology [facility] [place] [address] Stevie Escobedo DO [address] [place], [place] [phone] [facility] Non-Invasive Cardiology Start: 06-24-2023 End: 06-24-2023 Patient encounter procedure [facility] Start: 06-24-2023 End: 06-24-2023 ambulatory 06/24/2023 8:00 AM EST Infusion [facility] [address] [place] [address] Stevie Escobedo DO [address] [place] [address] [facility] Start: 06-23-2023 Advance Directive Discussion Advance Directive Discussion [facility] Start: 06-23-2023 Medicare Advantage Annual Wellness Visit Medicare Advantage Annual Wellness Visit [facility] Start: 06-20-2023 End: 06-20-2023 ambulatory [facility] Start: 06-17-2023 End: 06-17-2023 Patient encounter procedure 06/17/2023 10:30 AM EST Office Visit [facility] [address] [place] [address] [place] [address] Stevie Escobedo, DO [address] [place] [address] [facility] Start: 06-17-2023 End: 06-17-2023 ambulatory 06/17/2023 10:00 AM EST Infusion [facility] [address] [place] [address] Stevie Escobedo DO [address] [place] [address] [facility] Start: 06-13-2023 End: 06-13-2023 ambulatory 06/13/2023 9:00 AM EST Infusion [facility] [address] [place] [address] Stevie Escobedo DO [address] [place] [address] [facility] Start: 06-10-2023 End: 06-10-2023 ambulatory 06/10/2023 10:00 AM EST Infusion [facility] [address] [place] [address] Stevie Escobedo DO [address] [place] [address] [facility] Start: 06-06-2023 End: 06-06-2023 ambulatory 06/06/2023 9:00 AM EST Infusion [facility] [address] [place] [address] Stevie Escobedo, DO [address] [place] [address] [facility] Start: 06-03-2023 End: 06-03-2023 Patient encounter procedure 06/03/2023 11:45 AM EST Office Visit [facility] [address] [place] [place] [address] Stevie Escobedo DO [address] [place] [address] [facility] Start: 06-03-2023 End: 06-03-2023 Patient encounter procedure 06/03/2023 9:15 AM EST Office Visit [facility] [address] [place] [place] [phone] Stevie Escobedo DO [address] [place] [address] [facility] Start: 06-03-2023 End: 06-03-2023 ambulatory [facility] Start: 05-30-2023 End: 05-30-2023 ambulatory 05/30/2023 9:00 AM EST Infusion [facility] [address] [place] [address] Stevie Escobedo DO [address] [place] [address] [facility] Start: 05-27-2023 End: 05-27-2023 ambulatory [facility] Start: 05-23-2023 End: 05-23-2023 ambulatory 05/23/2023 9:00 AM EST Infusion [facility] [address] [place] [phone] Stevie Escobedo DO [address] [place] [address] [facility] Start: 05-20-2023 End: 05-20-2023 Patient encounter procedure 05/20/2023 10:15 AM EST Office Visit [facility] [address] [place] [address] Stevie Escobedo DO [address] [place] [address] [facility] Start: 05-20-2023 End: 05-20-2023 ambulatory 05/20/2023 9:00 AM EST Infusion [facility] [address] [place] [address] Stevie Escobedo DO [address] [place] [address] [facility] Start: 05-13-2023 End: 05-13-2023 ambulatory [facility] Start: 05-06-2023 End: 05-06-2023 Patient encounter procedure 05/06/2023 10:45 AM EST Office Visit [facility] [address] [place] [address] Stevie Escobedo DO [address] [place] [address] [facility] Start: 05-06-2023 End: 05-06-2023 ambulatory [facility] Start: 04-29-2023 End: 04-29-2023 ambulatory [facility] Start: 04-22-2023 End: 04-22-2023 Patient encounter procedure 04/22/2023 8:45 AM EDT Office Visit [facility] [address] [place] [address] Stevie Escobedo DO [address] [place] [address] [facility] Start: 04-22-2023 End: 04-22-2023 ambulatory [facility] Start: 04-15-2023 End: 04-15-2023 ambulatory [facility] Start: 04-08-2023 End: 04-08-2023 Patient encounter procedure 04/08/2023 10:45 AM EDT Office Visit [facility] [address] [place] [place] [address] Stevie Escobedo DO [address] [place] [address] [facility] Start: 04-08-2023 End: 04-08-2023 ambulatory [facility] Start: 04-01-2023 End: 04-01-2023 ambulatory 04/01/2023 8:00 AM EDT Infusion [facility] [address] [place] [address] [facility] Start: 03-31-2023 End: 03-31-2023 ambulatory 03/31/2023 11:00 AM EDT Infusion [facility] [address] [place] [address] Stevie Escobedo DO [address] [place], [place] [phone] [facility] Start: 03-26-2023 End: 03-26-2023 Patient encounter procedure 03/26/2023 2:00 PM EDT Appointment [facility] [address] [place] [address] Stevie Escobedo DO [address] [place] [address] [facility] Start: 03-18-2023 End: 03-18-2025 US Heart Transthoracic Transthoracic echocardiogram (TTE) complete with contrast, bubble, strain, and 3D PRN CV Echocardiography Routine Malignant neoplasm of upper-outer quadrant of left breast in female, estrogen receptor positive (HCC) Other general symptoms and signs Expected: 03/18/2023 (Approximate), Expires: 03/18/2025 [facility] Work Phone: Comment on above: Expected: 03/18/2023 (Approximate), Expires: 03/18/2025 Start: 03-18-2023 End: 03-18-2023 Patient encounter procedure 03/18/2023 1:30 PM EDT Office Visit [facility] [address] [place] [phone] Stevie Escobedo DO [address] [place] [place] [address] [facility] Start: 02-21-2023 COVID-19 Vaccine ( season) COVID-19 Vaccine ( season) [facility] Start: 02-21-2023 Influenza vaccination [facility] Start: 02-10-2023 End: 02-10-2023 Patient encounter procedure 02/10/2023 3:30 PM EDT Office Visit [facility] [address] [place] [address] [address] [place] [address] Marie Devi MD [address] [place] [address], [address] [place] [address] [facility] Start: 01-23-2023 FUV, Provider: Marie Devi, Status: Pen, Time: 7:10 AM FUV, Provider: Marei Devi, Status: Pen, Time: 7:10 AM [facility] Work Phone: Start: 01-23-2023 End: 01-23-2023 Patient encounter procedure 01/23/2023 7:10 AM EDT Office Visit [facility] [address] [place] [address] [address] [place] [address] Marie Devi MD [address] [place] [address], [address] [place] [id number] [facility] Start: 09-11-2022 Zoster Vaccines (2 of 2) Zoster Vacc clint (2 of 2) [facility] Start: 07-17-2022 Patient encounter procedure MCRANNUAL, Provider: Marie Devi, Status: Pen, Time: 7:10 AM [facility] Work Phone: Start: 06-23-2022 ADVANCE DIRECTIVE DISCUSSION ADVANCE DIRECTIVE DISCUSSION [facility] Start: 06-23-2022 DEPRESSION ASSESSMENT DEPRESSION ASS ESSMENT [facility] Start: 01-10-2022 FUV, Provider: Marie Devi, Status: Pen, Time: 7:10 AM FUV, Provider: Marie Devi, Status: Pen, Time: 7:10 AM [facility] Work Phone: Start: 08-01-2021 COVID-19 Vaccine (4 - Booster for Moderna series) COVID-19 Vaccine (4 - Booster for Moderna series) [facility] Start: 08-01-2021 COVID-19 Vaccine (4 - Moderna risk series) COVID-19 Vaccine (4 - Moderna risk series) [facility] Start: 08-01-2021 COVID-19 VACCINE (4 - Moderna series) COVID-19 VACCINE (4 - Moderna series) [facility] Start: 07-12-2021 FUV, Provider: Marie Devi, Status: Pen, Time: 7:00 AM FUV, Provider: Marie Devi, Status: Pen, Time: 7:00 AM [facility] Work Phone: Start: 06-23-2021 ADVANCE DIRECTIVE DISCUSSION ADVANCE DIRECTIVE DISCUSSION [facility] Start: 2021 RSV High Risk: (Elde rly (60+) or Population) (1 - 1-dose 75+ series) RSV High Risk: (Elderly (60+) or Population) (1 - 1-dose 75+ series) [facility] Start: 2021 RSV Immunization for Adults (1 - 1-dose 75+ series) RSV Immunization for Adults (1 - 1-dose 75+ series) [facility] Start: 2021 RSV Vaccine (1 - 1-d ose 75+ series) RSV Vaccine (1 - 1-dose 75+ series) [facility] Start: 01-10-2021 FUV, Provider: Marie Devi, Status: Pen, Time: 7:00 AM FUV, Provider: Marie Devi, Status: Pen, Time: 7:00 AM [facility] Work Phone: Start: 05-31-2020 Pneumococcal vaccination Pneum ococcal Vaccine (3 of 3 - PCV20 or PCV21) [facility] Start: 05-31-2020 Pneumococcal Vaccine : 65+ (3 of 3 - PPSV23 or PCV20) Pneumococcal Vaccine: 65+ (3 of 3 - PPSV23 or PCV20) [facility] Start: 05-31-2020 Pneumococcal Vaccine : 65+ Years (3 - PPSV23 or PCV20) Pneumococcal Vaccine: 65+ Years (3 - PPSV23 or PCV20) [facility] Start: 01-05-2020 Xray Bone Dens ity, Dexa 1 or More Sites [facility] Work Phone: Start: 05-31-2016 Pneumococcal Vaccine : 65+ Years (#3) Pneumococcal Vaccine: 65+ Years (#3) [facility] Start: 05-31-2016 Pneumococcal Vaccine : 65+ Years (3 - PPSV23 if available, else PCV20) Pneumococcal Vaccine: 65+ Years (3 - PPSV23 if available, else PCV20) [facility] Start: 05-31-2016 Pneumococcal Vaccine : 65+ Years (3 - PPSV23 or PCV20) Pneumococcal Vaccine: 65+ Years (3 - PPSV23 or PCV20) [facility] Start: 07-31-2015 Pneumococcal Vaccine : 50+ Years (3 of 3 - PPSV23, PCV20 or PCV21) Pneumococcal Vaccine: 50+ Years (3 of 3 - PPSV23, PCV20 or PCV21) [facility] Start: 07-31-2015 Pneumococcal Vaccine : 65+ Years (3 of 3 - PPSV23 or PCV20) Pneumococcal Vaccine: 65+ Years (3 of 3 - PPSV23 or PCV20) [facility] Start: 05-07-2015 LIPID SCREEN LIPID SCREEN [facility] Start: 05-18-2013 DIABETES SCREEN DIABETES SCREEN [facility] Start: 06-18-2011 Adult depression screening assessment DEPRESSION SCREENING [facility] Start: 2011 PNEUMOCOCCAL: 65+ (1 - PCV) PNEUMOCOCCAL: 65+ (1 - PCV) [facility] Start: 2011 PNEUMOVAX AGE 65 AND OVER WITH 5YR LOOKBACK (#1) PNEUMOVAX AGE 65 AND OVER WITH 5YR LOOKBACK (#1) [facility] Start: 2006 RSV Immunization age d 60 or older (1 - 1-dose 60+ series) RSV Immunization aged 60 or older (1 - 1-dose 60+ series) [facility] Start: 2006 RSV patient s and/or patients aged 60+ years (1 - 1-dose 60+ series) RSV patients and/or patients aged 60+ years (1 - 1-dose 60+ series) [facility] Start: 2006 RSV Vaccine (1 - 1-d ose 60+ series) RSV Vaccine (1 - 1-dose 60+ series) [facility] Start: 02-01-1996 SHINGRIX VACCINE (1 of 2) SHINGRIX VACCINE (1 of 2) [facility] Start: 1991 COLOGUARD (FIT-DNA) COLOGUARD (FIT-D NA) [facility] Start: 1991 Colonoscopy COLONOSCOPY [facility] Start: 1991 COLORECTAL CANCER SCREENING COLORECTAL CANCER SCREENING [facility] Start: [address] COLONOGRAPHY [facility] Start: 1991 FECAL OCCULT BLOOD FECAL OCCULT BLOO D [facility] Start: 1991 SIGMOIDOSCOPY SIGMOIDOSCOPY [facility] Start: 02-01-1968 DTaP/Tdap/Td Vaccine s (1 - Tdap) DTaP/Tdap/Td Vaccines (1 - Tdap) [facility] Start: 1965 DTaP/Tdap/Td Vaccine s (1 - Tdap) DTaP/Tdap/Td Vaccines (1 - Tdap) [facility] Start: 1965 Urine microalbumin profile DTAP,TDAP,TD (1 - Tdap) [facility] Start: 02-01-1964 HEPATITIS C SCREENING HEPATITIS C [facility] Start: 02-01-1964 Hepatitis C screening Hepatitis C [facility] Start: 1958 Depression Screening Depression Scre ening [facility] Start: 1958 Depresssion Monitoring Depresssion M onitoring [facility] Start: 1946 Medicare Advantage Annual Wellness Visit (AWV) Medicare Advantage Annual Wellness Visit (AWV) [facility] Start: 1946 Medicare Annual Well ness Visit Medicare Annual Wellness Visit (AWV) [facility] Start: 1945 Screening for osteoporosis Bone Density Scan [facility] End: 06-03-2023 Bacteria identified in Urine by Culture [facility] Work Phone: Comment on above: Once (Lab) for 1 Occ urrences starting 06/03/2023 until 06/03/2023 End: 03-24-2024 CBC W Auto Differential panel - Blood CBC auto differential Lab STAT Malignant neoplasm of upper-outer quadrant of left breast in female, estrogen receptor positive (HCC) Once a week for 14 Occurrences starting 03/25/2023 until 03/24/2024 [facility] Work Phone: Comment on above: Once a week for 14 O ccurrences starting 03/25/2023 until 03/24/2024 End: 06-09-2024 CBC W Auto Differential panel - Blood CBC auto differential Lab STAT Malignant neoplasm of upper-outer quadrant of left breast in female, estrogen receptor positive (HCC) Every 3 weeks for 8 Occurrences starting 06/10/2023 until 06/09/2024 [facility] Work Phone: Comment on above: Every 3 weeks for 8 Occurrences starting 06/10/2023 until 06/09/2024 End: 03-24-2024 Comprehensive metabolic 1998 panel - Serum or Plasma Comprehensive metabolic panel Lab STAT Malignant neoplasm of upper-outer quadrant of left breast in female, estrogen receptor positive (HCC) Once a week for 14 Occurrences starting 03/25/2023 until 03/24/2024 [facility] Comment on above: Once a week for 14 O ccurrences starting 03/25/2023 until 03/24/2024 End: 06-09-2024 Comprehensive metabolic 1998 panel - Serum or Plasma Comprehensive metabolic panel Lab STAT Malignant neoplasm of upper-outer quadrant of left breast in female, estrogen receptor positive (HCC) Every 3 weeks for 8 Occurrences starting 06/10/2023 until 06/09/2024 [facility] Comment on above: Every 3 weeks for 8 Occurrences starting 06/10/2023 until 06/09/2024 End: 07-03-2023 CT Sim WO [facility] Work Phone: Comment on above: Once for 1 Occurrenc es starting 07/03/2023 until 07/03/2023 End: 03-04-2025 DBT Breast - bilateral screening LEE SCREENING W SHIVA Radiology Routine Visit for screening mammogram Malignant neoplasm of upper-outer quadrant of left breast in female, estrogen receptor positive (HCC) 1 Occurrences starting 02/04/2024 until 03/04/2025 [facility] Work Phone: Comment on above: 1 Occurrences starti ng 02/04/2024 until 03/04/2025 DERMATOPATHOLOGY -DERMPATH LAB DERMATOPATHOLOGY -DERMPATH LAB Pathology and Cytology Routine Pigmented skin lesion suspicious for malignant neoplasm Ordered: 10/30/2022 [facility] Service Area Work Phone: Comment on above: Ordered: 10/30/2022 End: 03-04-2024 LEE NDL LOC W LEE GD LEFT LEE NDL LOC W LEE GD LEFT Radiology Routine Malignant neoplasm of upper-outer quadrant of left breast in female, estrogen receptor positive (HCC) 1 Occurrences starting 02/03/2023 until 03/04/2024 [facility] Work Phone: Comment on above: 1 Occurrences starti ng 02/03/2023 until 03/04/2024 End: 03-04-2024 NM INJ SENTINEL NODE BREAST LEFT NM INJ SENTINEL NODE BREAST LEFT Radiology Routine Malignant neoplasm of upper-outer quadrant of left breast in female, estrogen receptor positive (HCC) 1 Occurrences starting 02/03/2023 until 03/04/2024 [facility] Work Phone: Comment on above: 1 Occurrences starti ng 02/03/2023 until 03/04/2024 SURGICAL PATHOLOGY [facility] Work Phone: Comment on above: Release Upon [place] for 1 Occurrences starting 01/28/2023, 1 completed End: 02-20-2024 US BIOPSY BREAST LEFT US BIOPSY BREAST LEFT Radiology Routine Abnormal finding on radiological examination of breast 1 Occurrences starting 01/21/2023 until 02/20/2024 [facility] Work Phone: Comment on above: 1 Occurrences starti ng 01/21/2023 until 02/20/2024 End: 07-31-2023 US Thyroid gland [facility] Service Area Work Phone: Comment on above: Once for 1 Occurrenc es starting 07/31/2023 until 07/31/2023 Vascular US lower extremity venous duplex left Vascular US lower extremity venous duplex left CV Vascular Ultrasound STAT Malignant neoplasm of upper-outer quadrant of left breast in female, estrogen receptor positive (HCC) Localized edema 06/03/2023 3:42 PM EST [facility] Work Phone: [facility] Work Phone: [facility] NEGATED: Highlighted row has been ruled out! Planned Goals not documented [facility] Work Phone: Immunizations Immunization Date Immunization Notes Care Provider Zahira coronel 03-12-2024 influenza, high dose seasonal, preservative-free Leonardo Stanec DO Work Phone: [facility] 09-02-2023 tetanus toxoid, redu allegra diphtheria toxoid, and acellular pertussis vaccine, adsorbed Leonardo Stanec DO Work Phone: [facility] 03-13-2023 influenza virus vacc ine, unspecified formulation Chair 1 [facility] 03-03-2023 Flu vaccine, quadrivalent, high-dose, preservative free, age 65y+ (FLUZONE) Marie Devi MD Work Phone: [facility] Work Phone: 03-03-2023 influenza virus vacc ine, unspecified formulation Torrie Choi MD Work Phone: [facility] 02-27-2023 zoster vaccine recombinant Marie Devi MD Work Phone: [facility] Work Phone: 07-17-2022 Fluzone High-Dose Quadrivalent 0.7 ML Intramuscular Suspension Prefilled Syringe; Translations: [Fluzone High-Dose Quadrivalent 0.7 ML Intramuscular Suspension Prefilled Syringe] Marie Devi Work Phone: [facility] Work Phone: Comment on above: Series: 07-17-2022 influenza, high dose seasonal, preservative-free Marie Devi MD Work Phone: [facility] Work Phone: 07-17-2022 zoster vaccine recombinant Dara Sorensen DO Work Phone: [facility] Work Phone: 07-17-2022 influenza virus vacc ine, unspecified formulation Marie Devi MD Work Phone: [facility] Work Phone: 07-12-2021 Fluzone High-Dose Quadrivalent 0.7 ML Intramuscular Suspension Prefilled Syringe; Translations: [Fluzone High-Dose Quadrivalent 0.7 ML Intramuscular Suspension Prefilled Syringe] Marie Devi Work Phone: [facility] Work Phone: Comment on above: Series: 07-12-2021 influenza, high dose seasonal, preservative-free Marie Devi MD Work Phone: [facility] Work Phone: 07-12-2021 influenza, seasonal, injectable Dara Sorensen DO Work Phone: [facility] Work Phone: 07-12-2021 influenza virus vacc ine, unspecified formulation Dara Sorensen DO Work Phone: [facility] Work Phone: 06-06-2021 Moderna COVID-19 Vac cine 100 MCG/0.5ML Intramuscular Suspension Marie Devi Work Phone: [facility] Work Phone: 10-14-2020 Moderna COVID-19 Vac cine 100 MCG/0.5ML Intramuscular Suspension Marie Devi Work Phone: [facility] Work Phone: 09-16-2020 Moderna COVID-19 Vac cine 100 MCG/0.5ML Intramuscular Suspension Marie Devi Work Phone: [facility] Work Phone: 07-06-2019 influenza, high dose seasonal, preservative-free; Translations: [Fluzone High-Dose 0.5 ML Intramuscular Suspension Prefilled Syringe] Marie Devi [facility] Work Phone: Comment on above: Series: 07-06-2019 influenza virus vacc ine, unspecified formulation Dara Sorensen DO Work Phone: [facility] Work Phone: 06-26-2018 influenza, high dose seasonal, preservative-free; Translations: [Fluzone High-Dose 0.5 ML Intramuscular Suspension Prefilled Syringe] Marie Devi [facility] Work Phone: Comment on above: Series: 06-10-2017 influenza, high dose seasonal, preservative-free; Translations: [Fluzone High-Dose 0.5 ML Intramuscular Suspension Prefilled Syringe] Marie Devi [facility] Work Phone: Comment on above: Series: 05-23-2016 influenza, seasonal, injectable Darajuwan Sorensen DO Work Phone: [facility] Work Phone: 05-23-2016 influenza, injectabl e, quadrivalent, preservative free; Translations: [Fluarix Quadrivalent 0.5 ML Intramuscular Suspension Prefilled Syringe] [facility] Work Phone: Comment on above: Series: 05-31-2015 pneumococcal conjuga te vaccine, 13 valent; Translations: [Prevnar 13 Intramuscular Suspension] Marie Devi [facility] Work Phone: Comment on above: Series: 04-05-2015 influenza virus vacc ine, unspecified formulation Dara Sorensen DO Work Phone: [facility] Work Phone: 06-01-2014 influenza, seasonal, injectable Darajuwan Sorensen DO Work Phone: [facility] Work Phone: 06-01-2014 influenza, injectabl e, quadrivalent, preservative free; Translations: [Fluzone Quadrivalent 0.5 ML Intramuscular Suspension] Marie Devi [facility] Work Phone: Comment on above: Series: 05-27-2013 influenza virus vacc ine, unspecified formulation Marie Devi Work Phone: [facility] Work Phone: Comment on above: Series: 05-27-2013 influenza, seasonal, injectable Dara Sorensen DO Work Phone: [facility] Work Phone: 05-27-2013 influenza, seasonal, injectable Marie Shandra [facility] Work Phone: 04-03-2012 influenza, seasonal, injectable Dara Sorensen DO Work Phone: [facility] Work Phone: 04-02-2012 influenza virus vacc ine, unspecified formulation Marie Devi Work Phone: [facility] Work Phone: Comment on above: Series: 04-02-2012 influenza, seasonal, injectable Marie Devi [facility] Work Phone: 07-31-2010 influenza virus vacc ine, unspecified formulation Marie Devi Work Phone: [facility] Work Phone: Comment on above: Series: 07-31-2010 pneumococcal polysaccharide vaccine, 23 valent Marie Devi Work Phone: [facility] Work Phone: Comment on above: Series: 07-31-2010 pneumococcal vaccine , unspecified formulation Marie Devi Work Phone: [facility] Work Phone: 07-31-2010 influenza, seasonal, injectable Marie Devi [facility] Work Phone: 07-31-2010 pneumococcal polysaccharide vaccine, 23 valent Marie Devi [facility] Work Phone: influenza virus vacc ine, unspecified formulation Marie Devi Work Phone: [facility] Work Phone: Comment on above: Approx 05Apr2015 Ser ies: influenza, seasonal, injectable Marie Devi [facility] Work Phone: Comment on above: Approx 05Apr2015 Payers Date Payer Category Payer Medicare (Managed Care) [employer] [id number] 2019 Medicare HMO [facility] MEDIC[facility] [id number] 2013 Medicare [employer] MEDICARE [employer] MEDICARE PPO [id number] 2013-Present [phone] [address] [address] [place] [address] O [id number] 2013 Medicare [id number] 2013 Private Health Insurance [id number] 1945 Unknown [id number] 1946 Unknown [id number] 1946 Unknown [id number] [id number] 1946 Unknown [id number] [id number] 1946 Unknown [id number] [id number] 1946 Unknown [id number] [id number] 1946 Unknown [id number] [id number] 1946 Unknown [id number] 1946 Unknown [id number] 1946 Unknown [id number] Unknown Social History Date Type Detail Facility Start: 10-29-2022 End: 09-17-2024 Never a smoker Never a smoker [facility] Start: 10-24-2022 End: 03-06-2023 Tobacco smoking status NJIS Never smoked tobacco [facility] Start: 01-17-2020 End: 06-05-2023 Alcohol intake Current non-drinker of alcohol (finding) [facility] Start: 1945 Sex Assigned At Not on file [facility] Start: 09-11-2021 End: 09-17-2024 Exposure to SARS-CoV-2 (event) Not sure [facility] Start: 10-24-2022 End: 03-06-2023 Tobacco use and exposure Smokeless tobacco non-user [facility] Work Phone: Start: 10-29-2022 End: 09-17-2024 Gender identity Not on file [facility] National Score (1-100), lower number is lower risk 51 [facility] Start: 01-23-2023 End: 09-17-2024 Alcohol intake Ex-drinker (finding) [facility] Work Phone: How often to you hav e a drink containing alcohol? Never [facility] Has the [employer], gas, oil, or water [employer] threatened to shut off services in your home in past 12Mo No [facility] (I/We) worried whether (my/our) food would run out before (I/we) got money to buy more. Never true [facility] How often do you nee d to have someone help you when you read instructions, pamphlets, or other written material from your doctor or pharmacy [SILS] Patient unable to respond [facility] Work Phone: Start: 02-27-2023 Sex Female (finding) [facility] How often do you nee d to have someone help you when you read instructions, pamphlets, or other written material from your doctor or pharmacy [SILS] Always [facility] Work Phone: NEGATED: Highlighted row - - [facility] Work Phone: NEGATED: Highlighted rowStart: SHEA History of tobacco use Passive smoker [facility] Work Phone: Functional Status Date Assessment Result Facility 09-17-2024 Generalized anxiety disorder 7 item (CLIFTON-7) [facility] Work Phone: 09-17-2024 Patient Health Questionnaire 2 item (PHQ-2) [Reported] [facility] Work Phone: 09-17-2024 PHQ-9 quick depressi on assessment panel [Reported.PHQ] [facility] Work Phone: [facility] Work Phone: NEGATED: Highlighted row Functional performance Functional status health issues are not documented Disease [facility] Work Phone: Mental Status Date Assessment Result Facility NEGATED: Highlighted row Cognitive function [Interpretation] Cognitive status health issues are not documented Disease [facility] Work Phone: Clinical Notes 07-13-2020 to 12-10-2024 Assessment & Plan Note - Leonardo Santos, DO - 10/10/2024 10:14 PM EDTAssessment & Plan Note - Leonardo Santos, DO - 10/10/2024 10:14 PM EDTAdiana Santos, DO - 09/17/2024 1:30 PM EDT Note Date & Type Note Facility 12-10-2024 Note HNO ID: [id number] Author: JENNIFER CHAUDHRY RN Service: Care Management Author Type: Registered Nurse Type: Care Mgt Progress Note Filed: 12/10/2024 13:32 Note Text: CARE MANAGEMENT DISCHARGE NOTE SERVICE DATE: December 10, 2024 SERVICE TIME: 1:29 PM Admission Date: 12/03/2024 LOS: 2 days Discharge Arrangement Discharge Arrangement: Half-Way Facility Was an expedited discharge program used?: No Services Arranged SNF Placement Provider Name: [facility] Caregiver Assessment Caregiver is ready, willing and able to meet the patient's needs as recommended by the inter-professional team: Yes Name of Caregiver: [facility] Transportation Arrangements Transportation Arrangements: Ambulance Transportation Agency and Phone #:: [facility] [phone] Date of Trip: 12/10/24 Time of Trip: 0836 Type of Service: BLS Non-emergency Is Patient Medicaid Pending?: No Was transportation financial coverage discussed with family?: 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 Aware of any possible cost associated with medical transport. SNF updated with time and all orders RN provided number to call report CM updated patient and spouse at bedside, agreeable with dc plan for today SIGNATURE: Jennifer Chaudhry RN PATIENT NAME: Madiha Perales DATE: December 10, 2024 TIME: 1:29 PM [facility] 12-10-2024 Note HNO ID: [id number] Author: TORRIE CHOI MD Service: General Surgery Author Type: Physician Type: Plan of Care Filed: 12/10/2024 11:57 Note Text: Doing well - wound healing, no hematoma. OK for discharge. Will call with path results. No follow up needed. [facility] 12-09-2024 Note HNO ID: [id number] Author: GREG AGEE JR, MD Service: Neurology General Author Type: Physician Type: Plan of Care Filed: 12/09/2024 19:16 Note Text: PLAN OF CARE - NEUROLOGY Pt off floor. Temp art bx today. D/w primary team and history inconsistent as to location of headache. They also completed MRV that was unremarkable. Continued on steroids as per primary team (Prednisone) for suspicion of GCA. Explained if still concern for GCA would continue steroids for now and determine further treatment once bx results known. Appears still on gabapentin 100mg BID. Nursing notes indicate pain level of 0. Greg Agee MD [facility] 12-09-2024 Note HNO ID: [id number] Author: SHAW KINSEY MD Service: Hospital Medicine Author Type: Physician Type: Progress Notes Filed: 12/09/2024 14:30 Note Text: INPATIENT PROGRESS NOTE SERVICE DATE: 12/09/2024 PRIMARY SERVICE: Hospital Medicine CHIEF COMPLAINT: Encephalopathic Subjective Less headache or no headache, no nausea vomiting no chest pain fever chills Current Facility-Administered Medications Medication Dose Route Frequency NaCl 0.9% iv flush bag 20 mL INTRAVENOUS PRN DULoxetine 20 mg cap(s) (CYMBALTA) 20 mg ORAL DAILY carbidopa-levodopa 25-100 mg 1.5 tablet (SINEMET 25-100) 1.5 tablet ORAL 3 times per day memantine 10 mg tab(s) (NAMENDA) 10 mg ORAL BID lactated ringers iv infusion 75 mL/hr INTRAVENOUS CONTINUOUS acetaminophen 650 mg tab(s) (TYLENOL) 650 mg ORAL q 6 H PRN predniSONE 60 mg tab(s) (DELTASONE) 60 mg ORAL DAILY anastrozole 1 mg tab(s) (ARIMIDEX) 1 mg ORAL AT BEDTIME gabapentin 100 mg cap(s) (NEURONTIN) 100 mg ORAL q 12 H senna-docusate 8.6-50 mg 1 tablet (SENNA-S) 1 tablet ORAL BID polyethylene glycol 3350 17 g packet 17 g ORAL DAILY lactated ringers iv infusion 5-30 mL/hr INTRAVENOUS CONTINUOUS fentaNYL 50 mcg/mL 50 mcg injection (SUBLIMAZE) 50 mcg INTRAVENOUS q 10 MIN PRN oxyCODONE IR 5 mg tab(s) (ROXICODONE) 5 mg ORAL PRN ondansetron orally disintegrating 4 mg tab(s) (ZOFRAN ODT) 4 mg ORAL (PACU) PRN Or ondansetron (PF) 4 mg injection (ZOFRAN) 4 mg INTRAVENOUS (PACU) PRN lactated ringers iv infusion 30 mL/hr INTRAVENOUS CONTINUOUS QUEtiapine 25 mg tab(s) (SEROquel) 25 mg ORAL AT BEDTIME PRN Objective PHYSICAL EXAM: BP 142/87 Pulse 68 Temp (Src) 98.1 (Oral) Resp 18 Ht 5' 6 (1.68m) Wt 206 lb 5.6 oz (93.6kg) SpO2 97% BMI 33.32 kg/(m2). O2 Therapy: Nasal Cannula, Liters (Numeric Only): 1.00 General: Patient is awake and is in no acute respiratory distress. Lungs: Clear to auscultation, no wheezing, rales, or rhonchi. Cardiac: S1-S2 within normal limits Abdomen: Soft, nontender, nondistended. Extremities: No cyanosis Neurologic: Parkinson disease DATA: LABORATORY TESTS: CBC: Recent Labs 12/08/24 0451 12/07/24 0446 12/06/24 0758 12/05/24 0517 12/03/24 0803 WBC 10.58 10.27 11.94* 10.02 11.01* HB 13.2 13.0 13.5 13.5 14.6 PLT 207 171 183 182 201 MCV 93.5 95.0 93.5 94.3 94.5 NEUTP 89.3 -- -- 79.2 85.1 ABSNEUT 9.45* -- -- 7.94* 9.37* LYMPHP 6.7 -- -- 9.6 7.5 EODINP 0.0 -- -- 1.3 0.7 CHEM: Recent Labs 12/08/24 0451 12/07/24 0446 12/06/24 0758 NA 140 141 139 K 4.7 4.0 4.0 CA 8.9 8.5 8.7 MG 2.1 2.1 2.0 ANION 9 8 10 CHLOR 104 104 103 CO2 27 29 26 GLUC 134* 92 103* BUN 15 14 13 CREAT 0.51* 0.63 0.60 HEPATIC: Recent Labs 12/03/24 0803 ALT 7 AST 16 TBILI 0.8 ALKPHOS 106 ALB 4.5 TPROT 7.6 URINALYSIS: Recent Labs 12/03/24 0811 SPGR 1.015 UBACTERIA Few* LEUKEST Trace* UWBC 0-5 /HPF URBC 0-3 /HPF UHB Trace* UPROT Negative UGLUC Negative UKET Negative COAG: No results for input(s): APTT, INR in the last 168 hours. CARDIAC: No results for input(s): CKMB, CKMBP, TROPT, PBNP in the last 168 hours. DATA: Diagnostic tests reviewed for today's visit: Most recent labs and imaging results. Most recent EKG Urine Culture: Positive Micro-30 Days No results found for the last 720 hours. Blood Culture: Positive Micro-30 Days No results found for the last 720 hours. Medication and Non-Pharmacologic VTE Prophylaxis/Anticoagulants VTE Prophylaxis: VTE prophylaxis appropriate Assesment: Acute temporal arteritis Acute metabolic encephalopathy Parkinson disease Chronic small vessel ischemic disease in the brain History of uterine cancer Obstructive sleep apnea History of left breast cancer estrogen receptor positive History of hemorrhagic stroke Depression/anxiety Dementia Generalized weakness and debility Plan *Patient has been seen by neurology, note was reviewed, head CT head MRI results were reviewed with the patient's family, at this time we will order stat EEG as per neurology recommendation, will order also ABG ammonia level and urine tox screen, will start patient on Ringer lactate 75 mL an hour urine looks dark. *Continue chronic home medications for blood signs *Blood work unremarkable monitor CBC BMP magnesium tomorrow *DVT prophylaxis, SCD abstain from using an antiplatelet due to the fact that history of brain hemorrhage in the past. *PT/OT evaluation for recommended SNF, patient's family in agreement *I discussed the case with the patient, nursing staff and case management, her and daughter at bedside, plan for SNF placement eventually, also patient current CODE STATUS DNR CCA DNI, I discussed the case with the patient, nursing staff and case management, hospice care in the future to be considered. Plan 12/05/2024 *More awake more alert, tolerating diet very well, had a sporadic cough (more content not included)... [facility] 12-08-2024 Note HNO ID: [id number] Author: SHAW KINSEY MD Service: Care Management Author Type: Registered Nurse Type: Care Mgt Progress Note Filed: 12/08/2024 14:31 Note Text: Attestation signed by Shaw Kinsey MD at 12/08/2024 2:31 PM AGREE CARE MANAGEMENT PROGRESS NOTE SERVICE DATE: 12/08/2024 SERVICE TIME: LOS: 0 days Physician Certification of Less Than 30 Days Skilled Needs Earliest Possible Discharge Date: 12/08/24 To the best of my knowledge, all information provided about the individual is a true and an accurate reflection of Madiha Perales's needs. 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 * Attending Physician: Shaw Kinsey MD SIGNATURE: Jennifer Chaudhry RN PATIENT NAME: Madiha Perales DATE: December 08, 2024 TIME: 2:01 PM [facility] 12-08-2024 Note HNO ID: [id number] Author: SHAW KINSEY MD Service: Hospital Medicine Author Type: Physician Type: Progress Notes Filed: 12/08/2024 12:31 Note Text: INPATIENT PROGRESS NOTE SERVICE DATE: 12/08/2024 PRIMARY SERVICE: Hospital Medicine CHIEF COMPLAINT: Encephalopathic Subjective Awake no fever chills nausea vomiting complaining of headache shooting in character right-sided Current Facility-Administered Medications Medication Dose Route Frequency NaCl 0.9% iv flush bag 20 mL INTRAVENOUS PRN DULoxetine 20 mg cap(s) (CYMBALTA) 20 mg ORAL DAILY carbidopa-levodopa 25-100 mg 1.5 tablet (SINEMET 25-100) 1.5 tablet ORAL 3 times per day memantine 10 mg tab(s) (NAMENDA) 10 mg ORAL BID lactated ringers iv infusion 75 mL/hr INTRAVENOUS CONTINUOUS acetaminophen 650 mg tab(s) (TYLENOL) 650 mg ORAL q 6 H PRN predniSONE 60 mg tab(s) (DELTASONE) 60 mg ORAL DAILY anastrozole 1 mg tab(s) (ARIMIDEX) 1 mg ORAL AT BEDTIME gabapentin 100 mg cap(s) (NEURONTIN) 100 mg ORAL q 12 H Objective PHYSICAL EXAM: BP 132/67 Pulse 67 Temp (Src) 98.2 (Temporal Artery) Resp 12 Ht 5' 6 (1.68m) Wt 206 lb 5.6 oz (93.6kg) SpO2 93% BMI 33.32 kg/(m2). General: Patient is awake and is in no acute respiratory distress. Lungs: Clear to auscultation, no wheezing, rales, or rhonchi. Cardiac: S1-S2 within normal limits Abdomen: Soft, nontender, nondistended. Extremities: No cyanosis Neurologic: Parkinson disease DATA: LABORATORY TESTS: CBC: Recent Labs 12/08/24 0451 12/07/24 0446 12/06/24 0758 12/05/24 0517 12/03/24 0803 WBC 10.58 10.27 11.94* 10.02 11.01* HB 13.2 13.0 13.5 13.5 14.6 PLT 207 171 183 182 201 MCV 93.5 95.0 93.5 94.3 94.5 NEUTP 89.3 -- -- 79.2 85.1 ABSNEUT 9.45* -- -- 7.94* 9.37* LYMPHP 6.7 -- -- 9.6 7.5 EODINP 0.0 -- -- 1.3 0.7 CHEM: Recent Labs 12/08/24 0451 12/07/24 0446 12/06/24 0758 NA 140 141 139 K 4.7 4.0 4.0 CA 8.9 8.5 8.7 MG 2.1 2.1 2.0 ANION 9 8 10 CHLOR 104 104 103 CO2 27 29 26 GLUC 134* 92 103* BUN 15 14 13 CREAT 0.51* 0.63 0.60 HEPATIC: Recent Labs 12/03/24 0803 ALT 7 AST 16 TBILI 0.8 ALKPHOS 106 ALB 4.5 TPROT 7.6 URINALYSIS: Recent Labs 12/03/24 0811 SPGR 1.015 UBACTERIA Few* LEUKEST Trace* UWBC 0-5 /HPF URBC 0-3 /HPF UHB Trace* UPROT Negative UGLUC Negative UKET Negative COAG: No results for input(s): APTT, INR in the last 168 hours. CARDIAC: No results for input(s): CKMB, CKMBP, TROPT, PBNP in the last 168 hours. DATA: Diagnostic tests reviewed for today's visit: Most recent labs and imaging results. Most recent EKG Urine Culture: Positive Micro-30 Days No results found for the last 720 hours. Blood Culture: Positive Micro-30 Days No results found for the last 720 hours. Medication and Non-Pharmacologic VTE Prophylaxis/Anticoagulants VTE Prophylaxis: VTE prophylaxis appropriate Assesment: Acute temporal arteritis Acute metabolic encephalopathy Parkinson disease Chronic small vessel ischemic disease in the brain History of uterine cancer Obstructive sleep apnea History of left breast cancer estrogen receptor positive History of hemorrhagic stroke Depression/anxiety Dementia Generalized weakness and debility Plan *Patient has been seen by neurology, note was reviewed, head CT head MRI results were reviewed with the patient's family, at this time we will order stat EEG as per neurology recommendation, will order also ABG ammonia level and urine tox screen, will start patient on Ringer lactate 75 mL an hour urine looks dark. *Continue chronic home medications for blood signs *Blood work unremarkable monitor CBC BMP magnesium tomorrow *DVT prophylaxis, SCD abstain from using an antiplatelet due to the fact that history of brain hemorrhage in the past. *PT/OT evaluation for recommended SNF, patient's family in agreement *I discussed the case with the patient, nursing staff and case management, her and daughter at bedside, plan for SNF placement eventually, also patient current CODE STATUS DNR CCA DNI, I discussed the case with the patient, nursing staff and case management, hospice care in the future to be considered. Plan 12/05/2024 *More awake more alert, tolerating diet very well, had a sporadic cough her concerned about. *EEG unremarkable for seizure, recommended continue medication for Parkinson *Continue PT/OT, case management for discharge planning possibly to SNF as per family request. *Blood work was reviewed results unremarkable Plan 12/06/2024 *More awake, discussed the case with her daughter and patient's at bedside, at this time patient had EEG unremarkable for seizure, MRI did not indicate any evolving acute stroke or mass, patient is improving clinically, tolerating diet very well, continue PT/OT evaluation and possibly for SNF placement, patient CODE STATUS currently will (more content not included)... [facility] 12-08-2024 Note HNO ID: [id number] Author: LUCIUS DUBOSE PA-C Service: General Surgery Author Type: Physician [employer] Mechanic Type: Plan of Care Filed: 12/08/2024 09:23 Note Text: Patient on the OR schedule tomorrow with Dr. Choi for temporal artery biopsy. NPO after midnight for OR. SIGNATURE: Lucius Dubose PA-C PATIENT NAME: Madiha Perales DATE: December 08, 2024 TIME: 9:21 AM [facility] 12-08-2024 Note HNO ID: [id number] Author: JENNIFER CHAUDHRY RN Service: Care Management Author Type: Registered Nurse Type: Care Mgt Progress Note Filed: 12/08/2024 14:05 Note Text: CARE MANAGEMENT PROGRESS NOTE SERVICE DATE: 12/08/2024 SERVICE TIME: 8:21 AM LOS: 0 days Needs Prior to Discharge: Other: See Comment Per [facility] Per medical billing coordinator at [facility] offer a p2p for SNF pre-cert. P2P needs to be completed by 11:40am on 12/08. P2P phone # [phone] opt. 1 CM updated attending MD 10:30- Per MD P2P completed and upheld CM met with patient, spouse and daughter at bedside to provide update At this time they would like to private pay for SNF Requesting to ask [facility], [facility] and [facility] if they would accept private pay Referrals updated 14:00- CM met with family at bedside and provided update on private pay response from facilities [facility] will accept for SNF under private pay Family agreeable. CM spoke with admissions officer Hanna number given for business department to discuss financial piece, CM provided to daughter Per Hanna she is unable to accept wkend DC Requesting [facility] Family requesting medical transport SIGNATURE: Jennifer Chaudhry RN PATIENT NAME: Madiha Perales DATE: December 08, 2024 TIME: 8:21 AM [facility] 12-07-2024 Note HNO ID: [id number] Author: SHAW KINSEY MD Service: Hospital Medicine Author Type: Physician Type: Progress Notes Filed: 12/07/2024 14:55 Note Text: INPATIENT PROGRESS NOTE SERVICE DATE: 12/07/2024 PRIMARY SERVICE: Hospital Medicine CHIEF COMPLAINT: Encephalopathic Subjective More awake more alert no fever chills nausea vomiting complaining of headache shooting in character right-sided Current Facility-Administered Medications Medication Dose Route Frequency NaCl 0.9% iv flush bag 20 mL INTRAVENOUS PRN DULoxetine 20 mg cap(s) (CYMBALTA) 20 mg ORAL DAILY carbidopa-levodopa 25-100 mg 1.5 tablet (SINEMET 25-100) 1.5 tablet ORAL 3 times per day memantine 10 mg tab(s) (NAMENDA) 10 mg ORAL BID lactated ringers iv infusion 75 mL/hr INTRAVENOUS CONTINUOUS acetaminophen 650 mg tab(s) (TYLENOL) 650 mg ORAL q 6 H PRN [START ON 12/08/2024] anastrozole 1 mg tab(s) (ARIMIDEX) 1 mg ORAL DAILY predniSONE 60 mg tab(s) (DELTASONE) 60 mg ORAL DAILY Objective PHYSICAL EXAM: BP 147/72 Pulse 75 Temp (Src) 98.8 (Oral) Resp 18 Ht 5' 6 (1.68m) Wt 206 lb 5.6 oz (93.6kg) SpO2 94% BMI 33.32 kg/(m2). O2 Therapy: Nasal Cannula, Liters (Numeric Only): 1.50 General: Patient is awake and is in no acute respiratory distress. Lungs: Clear to auscultation, no wheezing, rales, or rhonchi. Cardiac: S1-S2 within normal limits Abdomen: Soft, nontender, nondistended. Extremities: No cyanosis Neurologic: Parkinson disease DATA: LABORATORY TESTS: CBC: Recent Labs 12/07/24 0446 12/06/24 0758 12/05/24 0517 12/03/24 0803 WBC 10.27 11.94* 10.02 11.01* HB 13.0 13.5 13.5 14.6 PLT 171 183 182 201 MCV 95.0 93.5 94.3 94.5 NEUTP -- -- 79.2 85.1 ABSNEUT -- -- 7.94* 9.37* LYMPHP -- -- 9.6 7.5 EODINP -- -- 1.3 0.7 CHEM: Recent Labs 12/07/24 0446 12/06/24 0758 12/05/24 0518 NA 141 139 139 K 4.0 4.0 4.2 CA 8.5 8.7 8.6 MG 2.1 2.0 2.1 ANION 8 10 10 CHLOR 104 103 102 CO2 29 26 27 GLUC 92 103* 100* BUN 14 13 15 CREAT 0.63 0.60 0.58 HEPATIC: Recent Labs 12/03/24 0803 ALT 7 AST 16 TBILI 0.8 ALKPHOS 106 ALB 4.5 TPROT 7.6 URINALYSIS: Recent Labs 12/03/24 0811 SPGR 1.015 UBACTERIA Few* LEUKEST Trace* UWBC 0-5 /HPF URBC 0-3 /HPF UHB Trace* UPROT Negative UGLUC Negative UKET Negative COAG: No results for input(s): APTT, INR in the last 168 hours. CARDIAC: No results for input(s): CKMB, CKMBP, TROPT, PBNP in the last 168 hours. DATA: Diagnostic tests reviewed for today's visit: Most recent labs and imaging results. Most recent EKG Urine Culture: Positive Micro-30 Days No results found for the last 720 hours. Blood Culture: Positive Micro-30 Days No results found for the last 720 hours. Medication and Non-Pharmacologic VTE Prophylaxis/Anticoagulants VTE Prophylaxis: VTE prophylaxis appropriate Assesment: Acute temporal arteritis Acute metabolic encephalopathy Parkinson disease Chronic small vessel ischemic disease in the brain History of uterine cancer Obstructive sleep apnea History of left breast cancer estrogen receptor positive History of hemorrhagic stroke Depression/anxiety Dementia Generalized weakness and debility Plan *Patient has been seen by neurology, note was reviewed, head CT head MRI results were reviewed with the patient's family, at this time we will order stat EEG as per neurology recommendation, will order also ABG ammonia level and urine tox screen, will start patient on Ringer lactate 75 mL an hour urine looks dark. *Continue chronic home medications for blood signs *Blood work unremarkable monitor CBC BMP magnesium tomorrow *DVT prophylaxis, SCD abstain from using an antiplatelet due to the fact that history of brain hemorrhage in the past. *PT/OT evaluation for recommended SNF, patient's family in agreement *I discussed the case with the patient, nursing staff and case management, her and daughter at bedside, plan for SNF placement eventually, also patient current CODE STATUS DNR CCA DNI, I discussed the case with the patient, nursing staff and case management, hospice care in the future to be considered. Plan 12/05/2024 *More awake more alert, tolerating diet very well, had a sporadic cough her concerned about. *EEG unremarkable for seizure, recommended continue medication for Parkinson *Continue PT/OT, case management for discharge planning possibly to SNF as per family request. *Blood work was reviewed results unremarkable Plan 12/06/2024 *More awake, discussed the case with her daughter and patient's at bedside, at this time patient had EEG unremarkable for seizure, MRI did not indicate any evolving acute stroke or mass, patient is improving clinically, tolerating diet very well, continue PT/OT evaluation and possibly for SNF placement, patient CODE STATUS currently will continue to be DNR CCA DNI *Leno (more content not included)... [facility] 12-07-2024 Note HNO ID: [id number] Author: LUCHO NELSON RN Service: Care Management Author Type: Registered Nurse Type: Care Mgt Progress Note Filed: 12/07/2024 12:28 Note Text: CARE MANAGEMENT PROGRESS NOTE SERVICE DATE: 12/07/2024 SERVICE TIME: 12:27 PM LOS: 0 days Needs Prior to Discharge: Precertification, Discharge Transportation CT ordered for [facility]. CM spoke to karmen Acuna via phone. Confirmed [facility] is [facility] and accepting. Precert initiated. Will need dc transport. SIGNATURE: Lucho Nelson RN PATIENT NAME: Madiha Perales DATE: December 07, 2024 TIME: 12:27 PM [facility] 12-06-2024 Note HNO ID: [id number] Author: SHAW KINSEY MD Service: Hospital Medicine Author Type: Physician Type: Progress Notes Filed: 12/06/2024 15:04 Note Text: INPATIENT PROGRESS NOTE SERVICE DATE: 12/06/2024 PRIMARY SERVICE: Hospital Medicine CHIEF COMPLAINT: Encephalopathic Subjective More awake more alert no fever chills nausea vomiting complaining of headache Current Facility-Administered Medications Medication Dose Route Frequency NaCl 0.9% iv flush bag 20 mL INTRAVENOUS PRN anastrozole 1 mg tab(s) (ARIMIDEX) 1 mg ORAL DAILY DULoxetine 20 mg cap(s) (CYMBALTA) 20 mg ORAL DAILY carbidopa-levodopa 25-100 mg 1.5 tablet (SINEMET 25-100) 1.5 tablet ORAL 3 times per day memantine 10 mg tab(s) (NAMENDA) 10 mg ORAL BID lactated ringers iv infusion 75 mL/hr INTRAVENOUS CONTINUOUS acetaminophen 650 mg tab(s) (TYLENOL) 650 mg ORAL q 6 H PRN Objective PHYSICAL EXAM: BP 108/47 Pulse 80 Temp (Src) 98.1 (Oral) Resp 18 Ht 5' 6 (1.68m) Wt 206 lb 5.6 oz (93.6kg) SpO2 93% BMI 33.32 kg/(m2). O2 Therapy: Nasal Cannula, Liters (Numeric Only): 1.50 General: Patient is awake and is in no acute respiratory distress. Lungs: Clear to auscultation, no wheezing, rales, or rhonchi. Cardiac: S1-S2 within normal limits Abdomen: Soft, nontender, nondistended. Extremities: No cyanosis Neurologic: Parkinson disease DATA: LABORATORY TESTS: CBC: Recent Labs 12/06/24 0758 12/05/24 0517 12/03/24 0803 WBC 11.94* 10.02 11.01* HB 13.5 13.5 14.6 PLT 183 182 201 MCV 93.5 94.3 94.5 NEUTP -- 79.2 85.1 ABSNEUT -- 7.94* 9.37* LYMPHP -- 9.6 7.5 EODINP -- 1.3 0.7 CHEM: Recent Labs 12/06/24 0758 12/05/24 0518 12/03/24 0803 NA 139 139 140 K 4.0 4.2 4.2 CA 8.7 8.6 9.3 MG 2.0 2.1 -- ANION 10 10 11 CHLOR 103 102 101 CO2 26 27 28 GLUC 103* 100* 127* BUN 13 15 15 CREAT 0.60 0.58 0.72 HEPATIC: Recent Labs 12/03/24 0803 ALT 7 AST 16 TBILI 0.8 ALKPHOS 106 ALB 4.5 TPROT 7.6 URINALYSIS: Recent Labs 12/03/24 0811 SPGR 1.015 UBACTERIA Few* LEUKEST Trace* UWBC 0-5 /HPF URBC 0-3 /HPF UHB Trace* UPROT Negative UGLUC Negative UKET Negative COAG: No results for input(s): APTT, INR in the last 168 hours. CARDIAC: No results for input(s): CKMB, CKMBP, TROPT, PBNP in the last 168 hours. DATA: Diagnostic tests reviewed for today's visit: Most recent labs and imaging results. Most recent EKG Urine Culture: Positive Micro-30 Days No results found for the last 720 hours. Blood Culture: Positive Micro-30 Days No results found for the last 720 hours. Medication and Non-Pharmacologic VTE Prophylaxis/Anticoagulants VTE Prophylaxis: VTE prophylaxis appropriate Assesment: Acute metabolic encephalopathy Parkinson disease Chronic small vessel ischemic disease in the brain History of uterine cancer Obstructive sleep apnea History of left breast cancer estrogen receptor positive History of hemorrhagic stroke Depression/anxiety Dementia Generalized weakness and debility Plan *Patient has been seen by neurology, note was reviewed, head CT head MRI results were reviewed with the patient's family, at this time we will order stat EEG as per neurology recommendation, will order also ABG ammonia level and urine tox screen, will start patient on Ringer lactate 75 mL an hour urine looks dark. *Continue chronic home medications for blood signs *Blood work unremarkable monitor CBC BMP magnesium tomorrow *DVT prophylaxis, SCD abstain from using an antiplatelet due to the fact that history of brain hemorrhage in the past. *PT/OT evaluation for recommended SNF, patient's family in agreement *I discussed the case with the patient, nursing staff and case management, her and daughter at bedside, plan for SNF placement eventually, also patient current CODE STATUS DNR CCA DNI, I discussed the case with the patient, nursing staff and case management, hospice care in the future to be considered. Plan 12/05/2024 *More awake more alert, tolerating diet very well, had a sporadic cough her concerned about. *EEG unremarkable for seizure, recommended continue medication for Parkinson *Continue PT/OT, case management for discharge planning possibly to SNF as per family request. *Blood work was reviewed results unremarkable Plan 12/06/2024 *More awake, discussed the case with her daughter and patient's at bedside, at this time patient had EEG unremarkable for seizure, MRI did not indicate any evolving acute stroke or mass, patient is improving clinically, tolerating diet very well, continue PT/OT evaluation and possibly for SNF placement, patient CODE STATUS currently will continue to be DNR CCA DNI *Continue Parkinson medications, continue PT/OT evaluation treat *blood work unremarkable Plan of care discussed with: . Nursing Disclaimer This dictation was created using voice evelyne (more content not included)... [facility] 12-06-2024 Note HNO ID: [id number] Author: JENNIFER CHAUDHRY RN Service: Care Management Author Type: Registered Nurse Type: Care Mgt Progress Note Filed: 12/06/2024 15:54 Note Text: CARE MANAGEMENT PROGRESS NOTE SERVICE DATE: 12/06/2024 SERVICE TIME: 2:31 PM LOS: 0 days Needs Prior to Discharge: Accepting Facility, Insurance Authorization, Other: See Comment, Discharge Transportation (medical clearance) CM met with patient, spouse and two daughters to discuss dc plan PT/OT rec SNF Family agreeable with referral to [facility] Per family still reviewing for additional SNF choices [id number]- CM met with patient and family [facility] still reviewing Family/patient requesting referrals to [address] [place] [address] CM to follow up with daughter Stevie Castelan) at [phone] with all SNF responses SIGNATURE: Jennifer Chaudhry RN PATIENT NAME: Madiha Perales DATE: December 06, 2024 TIME: 2:31 PM [facility] 12-05-2024 Note HNO ID: [id number] Author: SHAW KINSEY MD Service: Hospital Medicine Author Type: Physician Type: Progress Notes Filed: 12/05/2024 14:42 Note Text: INPATIENT PROGRESS NOTE SERVICE DATE: 12/05/2024 PRIMARY SERVICE: Hospital Medicine CHIEF COMPLAINT: Encephalopathic Subjective Patient mentation on and off no fever chills nausea vomiting she has been declining physical heredia for the last few months. Current Facility-Administered Medications Medication Dose Route Frequency NaCl 0.9% iv flush bag 20 mL INTRAVENOUS PRN anastrozole 1 mg tab(s) (ARIMIDEX) 1 mg ORAL DAILY DULoxetine 20 mg cap(s) (CYMBALTA) 20 mg ORAL DAILY carbidopa-levodopa 25-100 mg 1.5 tablet (SINEMET 25-100) 1.5 tablet ORAL 3 times per day memantine 10 mg tab(s) (NAMENDA) 10 mg ORAL BID lactated ringers iv infusion 75 mL/hr INTRAVENOUS CONTINUOUS Objective PHYSICAL EXAM: BP 101/54 Pulse 85 Temp (Src) 98.6 (Oral) Resp 12 Ht 5' 6 (1.68m) Wt 206 lb 5.6 oz (93.6kg) SpO2 94% BMI 33.32 kg/(m2). O2 Therapy: Nasal Cannula, Liters (Numeric Only): 2.00 General: Patient is awake and is in no acute respiratory distress. Lungs: Clear to auscultation, no wheezing, rales, or rhonchi. Cardiac: S1-S2 within normal limits Abdomen: Soft, nontender, nondistended. Extremities: No cyanosis Neurologic: Parkinson disease DATA: Recent Labs 12/03/24 0757 PCGLUCOSE 130* LABORATORY TESTS: CBC: Recent Labs 12/05/24 0517 12/03/24 0803 WBC 10.02 11.01* HB 13.5 14.6 PLT 182 201 MCV 94.3 94.5 NEUTP 79.2 85.1 ABSNEUT 7.94* 9.37* LYMPHP 9.6 7.5 EODINP 1.3 0.7 CHEM: Recent Labs 12/05/24 0518 12/03/24 0803 NA 139 140 K 4.2 4.2 CA 8.6 9.3 MG 2.1 -- ANION 10 11 CHLOR 102 101 CO2 27 28 GLUC 100* 127* BUN 15 15 CREAT 0.58 0.72 HEPATIC: Recent Labs 12/03/24 0803 ALT 7 AST 16 TBILI 0.8 ALKPHOS 106 ALB 4.5 TPROT 7.6 URINALYSIS: Recent Labs 12/03/24 0811 SPGR 1.015 UBACTERIA Few* LEUKEST Trace* UWBC 0-5 /HPF URBC 0-3 /HPF UHB Trace* UPROT Negative UGLUC Negative UKET Negative COAG: No results for input(s): APTT, INR in the last 168 hours. CARDIAC: No results for input(s): CKMB, CKMBP, TROPT, PBNP in the last 168 hours. DATA: Diagnostic tests reviewed for today's visit: Most recent labs and imaging results. Most recent EKG Urine Culture: Positive Micro-30 Days No results found for the last 720 hours. Blood Culture: Positive Micro-30 Days No results found for the last 720 hours. Medication and Non-Pharmacologic VTE Prophylaxis/Anticoagulants VTE Prophylaxis: VTE prophylaxis appropriate Assesment: Acute metabolic encephalopathy Parkinson disease Chronic small vessel ischemic disease in the brain History of uterine cancer Obstructive sleep apnea History of left breast cancer estrogen receptor positive History of hemorrhagic stroke Depression/anxiety Dementia Generalized weakness and debility Plan *Patient has been seen by neurology, note was reviewed, head CT head MRI results were reviewed with the patient's family, at this time we will order stat EEG as per neurology recommendation, will order also ABG ammonia level and urine tox screen, will start patient on Ringer lactate 75 mL an hour urine looks dark. *Continue chronic home medications for blood signs *Blood work unremarkable monitor CBC BMP magnesium tomorrow *DVT prophylaxis, SCD abstain from using an antiplatelet due to the fact that history of brain hemorrhage in the past. *PT/OT evaluation for recommended SNF, patient's family in agreement *I discussed the case with the patient, nursing staff and case management, her and daughter at bedside, plan for SNF placement eventually, also patient current CODE STATUS DNR CCA DNI, I discussed the case with the patient, nursing staff and case management, hospice care in the future to be considered. Plan 12/05/2024 *More awake more alert, tolerating diet very well, had a sporadic cough her concerned about. *EEG unremarkable for seizure, recommended continue medication for Parkinson *Continue PT/OT, case management for discharge planning possibly to SNF as per family request. *Blood work was reviewed results unremarkable Plan of care discussed with: . Nursing Disclaimer This dictation was created using voice recognition software. Phonetic and/or minor grammatical errors may exist. SIGNATURE: Shaw Kinsey MD PATIENT NAME: Madiha Perales [facility] 12-05-2024 Note HNO ID: [id number] Author: CHARLETTE WITT RN Service: Care Management Author Type: Registered Nurse Type: Care Mgt Initial Assessment Filed: 12/05/2024 11:49 Note Text: CARE MANAGEMENT: ASSESSMENT AND DISCHARGE PLAN SERVICE DATE: December 05, 2024 SERVICE TIME: 09:59 am PCP: Marie Devi MD ([facility]) Primary Contact: Extended Emergency Contact Information Primary Emergency Contact: uLcerosapnaStevie Relation: Daughter Secondary Emergency Contact: Marcos Perales Relation: Spouse Admission Status: Observation Insurance Provider: [employer] MEDICARE PPO Discharge Planning requested by: Per Department Practice Potential Transition Plans Half-Way Facility/Intermediate Care Facility, To Be Determined Advance Directives Current Advance Directive: Health Care Power of Manager Forensic, Living Will In Chart: No Personnel Counselor Attempted to Assist with AD Completion: Yes Action: Education Provided Current Living Arrangements and Support Lives with: Spouse/significant other Type of Residence: Private Residence (House) Does the patient have to climb stairs at home?: Yes, stairs outside the home (3 steps at entry) Support: Children, Spouse/significant other How do you manage to accomplish the following: Needs Assistance: Ambulation, Bathe/Shower, Dress, Going to the bathroom Dependent: Meals/Meal Prep, Medication Management, Transportation to appointments/community Current Services/Equipment Current Post-Acute Service(s): DME Current DME Type: Cane, Rolling walker, Shower seat, Walker Discharge Planning Patient Goal(s): General wellness, Be able to go home, Better mobility [place] of Choice Explained: [place] of Choice Given: Yes Level of Care Discussed: Half-Way Facility Are you interested in bedside delivery of your medications? No Discharge Planning Participant(s): Patient, Spouse/significant other Patient/Family Comments: Caregiver Assessment: Caregiver is ready, willing and able to meet the patient's needs as recommended by the inter-professional team: Other: See Comment (TBD) Transport at Discharge: Transportation Arrangements: To Be Determined Needs Prior to Discharge: Needs Prior to Discharge: Accepting Facility, Facility or Agency Choices, Precertification, Discharge Transportation, Other: See Comment (Medical clearance) Post-Acute Discharge Plan: TBD Met with patient and spouse Marcos at bedside, introduced self/role of TCC. CM assessment completed with spouse. Patient presented to [facility] ED c/o confusion. Patient admitted to Observation for further evaluation and treatment. Patient lives in a ranch style home with her spouse. She need assistance with most ADLs and all IADLs. She uses a walker or cane to ambulate if she remembers. Patient's spouse is her primary caregiver, she does not drive. PT and OT are recommending short term rehab prior to patient returning home. Spouse agrees, list of facilities given. Will need choice and pre-cert. CM will continue to follow. SIGNATURE: Charlette Witt RN PATIENT NAME: Madiha Perales DATE: December 05, 2024 TIME: 11:44 AM [facility] 12-04-2024 Note HNO ID: [id number] Author: SHAW KINSEY MD Service: Hospital Medicine Author Type: Physician Type: Progress Notes Filed: 12/04/2024 12:56 Note Text: INPATIENT PROGRESS NOTE SERVICE DATE: 12/04/2024 PRIMARY SERVICE: Hospital Medicine CHIEF COMPLAINT: Encephalopathic Subjective Patient mentation on and off no fever chills nausea vomiting she has been declining physical heredia for the last few months. Current Facility-Administered Medications Medication Dose Route Frequency NaCl 0.9% iv flush bag 20 mL INTRAVENOUS PRN anastrozole 1 mg tab(s) (ARIMIDEX) 1 mg ORAL DAILY DULoxetine 20 mg cap(s) (CYMBALTA) 20 mg ORAL DAILY carbidopa-levodopa 25-100 mg 1.5 tablet (SINEMET 25-100) 1.5 tablet ORAL 3 times per day memantine 10 mg tab(s) (NAMENDA) 10 mg ORAL BID lactated ringers iv infusion 75 mL/hr INTRAVENOUS CONTINUOUS Objective PHYSICAL EXAM: BP 138/78 Pulse 78 Temp (Src) 99.3 (Axillary) Resp 16 Ht 5' 6 (1.68m) Wt 206 lb 5.6 oz (93.6kg) SpO2 92% BMI 33.32 kg/(m2). O2 Therapy: Nasal Cannula, Liters (Numeric Only): 2 General: Patient is in no acute respiratory distress. Lungs: Clear to auscultation, no wheezing, rales, or rhonchi. Cardiac: S1-S2 within normal limits Abdomen: Soft, nontender, nondistended. Extremities: No cyanosis Neurologic: Parkinson disease Psych sleeping DATA: Recent Labs 12/03/24 0757 PCGLUCOSE 130* LABORATORY TESTS: CBC: Recent Labs 12/03/24 0803 WBC 11.01* HB 14.6 PLT 201 MCV 94.5 NEUTP 85.1 ABSNEUT 9.37* LYMPHP 7.5 EODINP 0.7 CHEM: Recent Labs 12/03/24 0803 NA 140 K 4.2 CA 9.3 ANION 11 CHLOR 101 CO2 28 GLUC 127* BUN 15 CREAT 0.72 HEPATIC: Recent Labs 12/03/24 0803 ALT 7 AST 16 TBILI 0.8 ALKPHOS 106 ALB 4.5 TPROT 7.6 URINALYSIS: Recent Labs 12/03/24 0811 SPGR 1.015 UBACTERIA Few* LEUKEST Trace* UWBC 0-5 /HPF URBC 0-3 /HPF UHB Trace* UPROT Negative UGLUC Negative UKET Negative COAG: No results for input(s): APTT, INR in the last 168 hours. CARDIAC: No results for input(s): CKMB, CKMBP, TROPT, PBNP in the last 168 hours. DATA: Diagnostic tests reviewed for today's visit: Most recent labs and imaging results. Most recent EKG Urine Culture: Positive Micro-30 Days No results found for the last 720 hours. Blood Culture: Positive Micro-30 Days No results found for the last 720 hours. Medication and Non-Pharmacologic VTE Prophylaxis/Anticoagulants VTE Prophylaxis: VTE prophylaxis appropriate Assesment: Acute metabolic encephalopathy Parkinson disease Chronic small vessel ischemic disease in the brain History of uterine cancer Obstructive sleep apnea History of left breast cancer estrogen receptor positive History of hemorrhagic stroke Depression/anxiety Dementia Generalized weakness and debility Plan *Patient has been seen by neurology, note was reviewed, head CT head MRI results were reviewed with the patient's family, at this time we will order stat EEG as per neurology recommendation, will order also ABG ammonia level and urine tox screen, will start patient on Ringer lactate 75 mL an hour urine looks dark. *Continue chronic home medications for blood signs *Blood work unremarkable monitor CBC BMP magnesium tomorrow *DVT prophylaxis, SCD abstain from using an antiplatelet due to the fact that history of brain hemorrhage in the past. *PT/OT evaluation for recommended SNF, patient's family in agreement *I discussed the case with the patient, nursing staff and case management, her and daughter at bedside, plan for SNF placement eventually, also patient current CODE STATUS DNR CCA DNI, I discussed the case with the patient, nursing staff and case management, hospice care in the future to be considered. Plan of care discussed with: . Disclaimer This dictation was created using voice recognition software. Phonetic and/or minor grammatical errors may exist. SIGNATURE: Shaw Kinsey MD PATIENT NAME: Madiha Perales [facility] 12-03-2024 Note SARS-COV-2 (AGENT OF COVID-19) RNA: Not detected INFLUENZA A RNA: Not detected INFLUENZA B RNA: Not detected RESPIRATORY SYNCYTIAL VIRUS (RSV) RNA: Not detected [facility] Comment on above: Performed By: #### 9 [id number] ####[facility] [id number] [place], [place] [id number] [place] [address] OF [facility] 04-20-2025 Evaluation + Plan note Associated Problem(s): Depression with anxiety Currently on Cymbalta, feels like she has a good dose. Has better days where parksinson's isn't as much an issue, but having more an more bad days. - Continue current dose, no changes. [facility] Work Phone: 10-10-2024 Miscellaneous Notes Associated Problem(s): Depression with anxiety Currently on Cymbalta, feels like she has a good dose. Has better days where parksinson's isn't as much an issue, but having more an more bad days. - Continue current dose, no changes. documented in this encounter [facility] Work Phone: 09-17-2024 History of Present illness Narrative Images from the original note were not included. FAMILY MEDICINE ANNUAL MEDICARE WELLNESS VISIT Madiha Perales [id number] 1945 PCP: Leonardo Santos DO Chief Complaint: Chief Complaint Patient presents with Medicare Annual Wellness Visit Subsequent Pt presents for annual MWV- ABN was given to pt and signed, pt verbalized understanding. SUBJECTIVE Madiha Perales is a 79 y.o. [place]ian-speaking female with pertinent PMHx of Parkinsons, who presents to the clinic for their annual medicare wellness visit. Patient is new to me as PCP, as Dr. Devi left the practice in June. Parkinson - Upted CL to 1.5mg TID -- that is highest - Leg to walk they aren't operating - No tremors - Doesn't - Went to [facility] [place] - He usually goes to [facility] - Plan to do that Tues and Thurs Breast Cancer Hx of CVA - Recovered better than ever before - Went back to normal. Current Providers List Patient Care Team: Leonardo Santos DO as PCP - General (Family Medicine) Marie Devi MD as PCP - [employer]vantage PCP BMI Body mass index is 34.5 kg/m . The BMI is above average. The patient received Provided instructions on dietary changes because they have an above normal BMI. Fall Risk & Home Safety Have you fallen in the past year? Yes Are you worried about falling? Yes Home safety risk factors: Falls Home Safety Risk Factors Home Safety Risk Factors: None The patient has a history of falls. I did complete a risk assessment for falls. A plan of care for falls was documented. In wheelchair today Discussed HHC options Functional Ability/Level of Safety Cognitive Impairment Observed: No cognitive impairment observed Hearing & Vision Screen: No results found. Health Status Good Activity of Daily Living (ADLs) ADL Screening Hearing - Right Ear: Functional Hearing - Left Ear: Functional Bathing: Needs assistance Dressing: Needs assistance Walks in Home: Needs assistance Instrumental Activity of Daily Living (ADLs) IADL's Grocery Shopping: Total care Doing Housework: Total care Taking Medication: Total care Managing Finances: Total care Nutritional & Physical Activity Assessment Nutrition and Exercise Current Diet: Unhealthy Diet Adequate Fluid Intake: No Caffeine: Yes Exercise Frequency: No Exercise Mini Cog Total Score:: 0 Depression Screening Patient Health Questionnaire-2 Score: 1 (09/17/2024 1:56 PM) Patient Health Questionnaire-9 Score: 13 PROBLEMS & MEDICAL HISTORY Patient Active Problem List Diagnosis Rosacea, acne Allergic reaction to bee sting Allergic rhinitis Depression with anxiety Eczema Elevated TSH Estrogen deficiency External hemorrhoids Hair loss Low back pain Menopausal state 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[facility]) Nocturnal hypoxemia Obesity (BMI 30.0-34.9) MARCY on CPAP Repeated falls Seborrheic keratosis Breast calcifications on mammogram Hemangioma of skin and subcutaneous tissue Parkinsonism (Multi) History of uterine cancer Stroke (Multi) Edema of both lower extremities HCAP (healthcare-associated pneumonia) History of colonic polyps Memory loss Pigmented skin lesion suspicious for malignant neoplasm Polyp of colon Uterine cancer (Multi) Benign neoplasm of colon History reviewed. No pertinent past medical history. MEDICATIONS Current Outpatient Medications Medication Instructions anastrozole (ARIMIDEX) 1 mg, Daily calcium carbonate/vitamin D3 (CALCIUM PLUS VITAMIN D PO) 1 tablet, Daily carbidopa-levodopa (Sinemet) 25-100 mg tablet Take 1 tablet at 10 am, 3 pm, and 8 pm cholecalciferol (Vitamin D-3) 50 MCG (1999) tablet 1 tablet, oral, Daily DULoxetine (CYMBALTA) 20 mg, oral, Daily loratadine (ALLERGY RELIEF (LORATADINE)) 10 mg, oral, Daily memantine (NAMENDA) 10 mg, Daily miscellaneous medical supply misc miscellaneous, Neurvive ALLERGIES Allergies Allergen Reactions Hydrocodone-Acetaminophen Nausea/vomiting Alendronic Acid Other Aspirin Other Cephalexin Unknown Escitalopram Oxalate Other Iodine Hives Other reaction(s): Hives and/or rash Hives x 5 locations, redness of right eye. Nickel Unknown Penicillins Unknown Pregabalin Unknown Salicylates Unknown Iodinated Contrast Media Hives Hives x 5 locations, redness of right eye. SURGICAL HISTORY Past Surgical History: Procedure Laterality Date BREAST LUMPECTOMY 03/08/2014 Breast Surgery Lumpectomy HYSTERECTOMY 03/08/2014 Hysterectomy FAMILY HISTORY No family history on file. IMMUNIZATION HISTORY Immunization History Administered Date(s) Administered Flu vaccine, quadrivalent, high-dose, preservative free, age 65y+ (FLUZONE) 03/03/2023 Flu vaccine, trivalent, preservative free, HIGH-DOSE, age 65y+ (Fluzone) 06/10/2017, 06/26/2018, 07/06/2019, 07/12/2021, 07/17/2022, 03/12/2024 Influenza, Unspecified 07/31/2010, 04/02/2012, 04/05/2015 Influenza, seasonal, injectable 04/03/2012, 05/27/2013, 06/01/2014, 05/23/2016, 07/12/2021 Moderna SARS-CoV-2 Vaccination 09/16/2020, 10/14/2020, 06/06/2021 Pneumococcal conjugate vaccine, 13-valent (PREVNAR 13) 05/31/2015 Pneumococcal polysaccharide vaccine, 23-valent, age 2 years and older (PNEUMOVAX 23) 07/31/2010 Pneumococcal, Unspecified 07/31/2010 Tdap vaccine, age 7 year and older (BOOSTRIX, ADACEL) 09/02/2023 Zoster vaccine, recombinant, adult (SHINGRIX) 07/17/2022, 02/27/2023 SOCIAL HISTORY Social History Socioeconomic History Marital status: Tobacco Use Smoking status: Never Passive exposure: Never Smokeless tobacco: Never Vaping Use Vaping status: Never Used Substance and Sexual Activity Alcohol use: Not Currently Drug use: Never Social Drivers of Health Financial Resource Strain: Low Risk (10/17/2023) Received from [facility] Overall Financial Resource Strain (CARDIA) Difficulty of Paying Living Expenses: Not hard at all Food Insecurity: No Food Insecurity (10/17/2023) Received from [facility] Hunger Vital Sign Worried About Running Out of Food in the Last Year: Never true Ran Out of Food in the Last Year: Never true Transportation Needs: No Transportation Needs (11/27/2023) OASIS A1250: Transportation Lack of Transportation (Medical): No Lack of Transportation (Non-Medical): No Patient Unable or Declines to Respond: No Stress: Stress Concern Present (10/28/2023) Received from [facility] [place] [facility] Occupational [facility] - Occupational Stress Questionnaire Feeling of Stress : Rather much Social Connections: Feeling Socially Integrated (11/27/2023) OASIS D0700: Social Isolation Frequency of experiencing loneliness or isolation: Never Intimate Partner Violence: Patient Unable To Answer (10/15/2023) Received from [facility] Domestic Abuse Assessment Do you feel safe in your relationships at home?: Unable to assess Physical Abuse: Unable to assess Verbal Abuse: Unable to assess Housing Stability: Unknown (10/17/2023) Received from [facility] Housing Stability Vital Sign Unable to Pay for Housing in the Last Year: No The following portions of the patient's chart were reviewed in this encounter and updated as appropriate: Tobacco Allergies Meds Problems Med Hx Surg Hx Fam Hx OBJECTIVE BP 109/73 (BP Location: Left arm, Patient Position: Sitting, BP Cuff Size: Large adult) Pulse 73 Temp 36.7 C (98 F) (Temporal) Ht 1.651 m (5' 5) Wt 94 kg (207 lb 4.8 oz) SpO2 94% BMI 34.50 kg/m Vital signs and pulse oximetry reviewed. Physical Exam Vitals and nursing note reviewed. Constitutional: General: She is not in acute distress. Appearance: Normal appearance. She is normal weight. She is not ill-appearing, toxic-appearing or diaphoretic. HENT: Head: Normocephalic and atraumatic. Right Ear: External ear normal. Left Ear: External ear normal. Nose: Nose normal. No congestion or rhinorrhea. Eyes: General: No scleral icterus. Conjunctiva/sclera: Conjunctivae normal. Cardiovascular: Rate and Rhythm: Normal rate and regular rhythm. Heart sounds: No murmur heard. Pulmonary: Effort: Pulmonary effort is normal. No respiratory distress. Breath sounds: Normal breath sounds. No wheezing, rhonchi or rales. Musculoskeletal: Cervical back: Normal range of motion. No rigidity. Right lower leg: No edema. Left lower leg: No edema. Comments: In Wheelchair Skin: General: Skin is warm. Coloration: Skin is not jaundiced or pale. Neurological: Mental Status: She is alert. Mental status is at baseline. Psychiatric: Mood and Affect: Mood normal. Speech: Speech is delayed. Behavior: Behavior normal. Behavior is cooperative. Thought Content: Thought content normal. Cognition and Memory: Cognition is impaired. Memory is impaired. She exhibits impaired recent memory. Judgment: Judgment normal. ASSESSMENT & PLAN Code Status: DNR and No Intubation Medicare Annual Wellness Visit (AMWV) was completed today. Preventive recommendations were reviewed and discussed with the patient, see orders below for recommendations patient elects for today. Provided personalized health advice to patient with appropriate referrals for health education, preventive counseling programs and services. Reviewed cognitive testing with patient and recommend continuing with Neurology. Patient with known Parkinson's. Updated the patients medical and family history. To reduce your risk for falls, keep your home free of clutter, do not use rugs or mats unless they have a slip-free designation, and remove rugs from high traffic areas. Updated written screening schedule previously discussed and provided personalized prevention plan. We discussed the [facility] Code Status and patient is: DNR Comfort Care Arrest at this time. Form can be found in media tab, patient has original with them. I recommended they hang the DNR form on the fridge or other place easy to see in their home or in their wallet. We discussed advanced care planning and end of life care. Patient provided blank copy of [facility] Advanced Directives packet, which includes HCPOA and Living Will Declaration. Patient's Advanced Directives are as follows: DNI/DNR Patient instructions with the written plan were provided to the patient. Advance Directives Discussion 16 - 20 minutes were spent discussing Advanced Care Planning (including a Living Will, Medical Power Of Manager Forensic, as well as specific end of life choices and/or directives). The details of that discussion were documented in Advanced Directives Discussion section of the medical record. Depression Screening 5 - 10 minutes were spent screening for depression. Health Maintenance Topic Date Due Hepatitis C Screening Never done Pneumococcal Vaccine (3 of 3 - PCV20 or PCV21) 05/31/2020 RSV High Risk: (Elderly (60+) or Population) (1 - 1-dose 75+ series) Never done COVID-19 Vaccine (4 - 2023- season) 2024 Medicare Annual Wellness Visit (AWV) 07/31/2024 Lipid Panel 07/17/2027 DTaP/Tdap/Td Vaccines (2 - Td or Tdap) 09/01/2033 Influenza Vaccine Completed Zoster Vaccines Completed Bone Density Scan Completed HIB Vaccines Aged Out Hepatitis B Vaccines Aged Out IPV Vaccines Aged Out Hepatitis A Vaccines Aged Out Meningococcal Vaccine Aged Out Rotavirus Vaccines Aged Out HPV Vaccines Aged Out Irritable Bowel Syndrome Discontinued Problem List Items Addressed This Visit Depression with anxiety Current Assessment & Plan Currently on Cymbalta, feels like she has a good dose. Has better days where parksinson's isn't as much an issue, but having more an more bad days. - Continue current dose, no changes. Relevant Orders CBC and Auto Differential (Completed) Comprehensive Metabolic Panel (Completed) Tsh With Reflex To Free T4 If Abnormal (Completed) Vitamin B12 (Completed) Vitamin D 25-Hydroxy,Total (for eval of Vitamin D levels) (Completed) Hemoglobin A1C (Completed) Elevated TSH - Primary Relevant Orders CBC and Auto Differential (Completed) Comprehensive Metabolic Panel (Completed) Tsh With Reflex To Free T4 If Abnormal (Completed) Vitamin B12 (Completed) Vitamin D 25-Hydroxy,Total (for eval of Vitamin D levels) (Completed) Hemoglobin A1C (Completed) Parkinsonism (Multi) Overview Last Assessment & Plan: Assessment: Follows with PCP. No recent falls. Adherent to RX. Relevant Orders CBC and Auto Differential (Completed) Comprehensive Metabolic Panel (Completed) Tsh With Reflex To Free T4 If Abnormal (Completed) Vitamin B12 (Completed) Vitamin D 25-Hydroxy,Total (for eval of Vitamin D levels) (Completed) Hemoglobin A1C (Completed) Referral to Psychology Other Visit Diagnoses Vitamin D deficiency Relevant Orders Vitamin D 25-Hydroxy,Total (for eval of Vitamin D levels) (Completed) Do not resuscitate Relevant Orders DNR and No Intubation (Completed) Medicare annual wellness visit, subsequent G0439 ACP Depr Follow-Up Recommendations: 3mo Please excuse any typos or grammatical errors, part of this note was constructed with Elias Borges [employer] dictation software. Leonardo Santos DO, MSEd [facility] Office: 09/17/2024 10:15 PM documented in this encounter [facility] Work Phone: 08-10-2024 History of Present illness Narrative Hematology/Oncology Office Visit Oncology History: 1) stage 1A left breast cancer, invasive ductal carcinoma grade 3. ER+ WV+ HER2+. cT1b N0 M0; pT1c N0 M0, diagnosed 01/28/23. - Patient is a 78 yo F who presented with an abnormal screening mammogram of the upper outer quadrant of the left breast on 11/27/22. Diagnostic imaging and ultrasound were performed on 01/21/2023: a 0.9 x 0.9 x 1 cm irregular mass in the left breast. Biopsy was performed at [facility] on 01/28/2023 confirming grade 3 invasive ductal carcinoma ER positive 100%, WV positive 70% and HER2 positive at 3+. The patient underwent lumpectomy and sentinel node removal on 02/18/[address] Choi at [facility]: pathology revealed grade 3 invasive ductal carcinoma measuring 1.9 cm. There was focal DCIS and extensive lymphovascular invasion. Margins were negative for invasive and in situ component at greater than 2 mm. 6 axillary nodes were removed: 5 sentinel and 1 nonsentinel. All were negative. Pathologically staged T1CN0. - she was referred to [facility] for medical and radiation oncology. Her case was reviewed at our tumor board and adjuvant chemotherapy, radiation, and AI therapy were recommended. She started weekly taxol and herceptin on 04/01/23. She required a 25% reduction in Taxol for cycle 3 due to neutropenia. She completed 8 of the 12 planned cycles of weekly Taxol, but the Taxol was stopped early due to poor tolerance. Herceptin every 3 weeks continued. - radiation started 07/14/23 and she completed it 08/12/23 - Arimidex started 09/02/23. She had several falls and required hospitalizations. Herceptin discontinued (last dose was 09/23/23). HPI: Madiha Perales is a 79 y.o. female who comes in today for routine follow up. She had a bilateral screening mammogram at [facility] on 03/25/24 which was negative for malignancy. She is tolerating Arimidex well. No breast concerns today. She is accompanied by her . She arrived to clinic in a wheelchair. No chest pain or shortness of breath. Appetite is good. No fevers or chills. No swelling. No headaches. No bone pain. She continues to follow with geriatrics/neurology for management of the Parkinson's disease. Past Medical History: Diagnosis Date Allergic rhinitis Anxiety Back pain Lower back pain Breast calcifications on mammogram Dementia (HCC) Depression Eczema H/O colonoscopy Hemorrhoid Hx of rosacea Lower extremity edema MARCY (obstructive sleep apnea) The patient wears CPAP Parkinson disease ([facility]) Stroke ([facility]) 2009 Torn meniscus Uterine cancer ([facility]) (HCC) 2005 Past Surgical History: Procedure Laterality Date BREAST LUMPECTOMY 02/18/2023 Left breast Lumpectomy and sentinel lymph node biopsy BREAST LUMPECTOMY Left 2014 Benign left breast lumpectomy CATARACT EXTRACTION, BILATERAL 2012 Bilateral cataract surgery HYSTERECTOMY 2006 Total Hysterectomy KNEE ARTHROSCOPY Right Patient Active Problem List Diagnosis Date Noted Memory loss 03/18/2023 Pigmented skin lesion suspicious for malignant neoplasm 03/18/2023 Malignant neoplasm of upper-outer quadrant of left breast in female, estrogen receptor positive (HCC) 03/18/2023 Edema of both lower extremities 02/05/2023 Parkinsonism 02/05/2023 Allergic reaction to bee sting 10/29/2022 Allergic rhinitis 10/29/2022 Eczema 10/29/2022 Eczema 10/29/2022 Elevated TSH 10/29/2022 External hemorrhoids 10/29/2022 Hair loss 10/29/2022 Low back pain 10/29/2022 Menopausal state 10/29/2022 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HCC) 10/29/2022 Mixed anxiety depressive disorder 10/29/2022 Obesity (BMI 30.0-34.9) 10/29/2022 Obstructive sleep apnea syndrome 10/29/2022 Falling 10/29/2022 Seborrheic keratosis 10/29/2022 Rosacea, acne 10/15/2022 Hemangioma of skin and subcutaneous tissue 04/24/2016 Breast calcifications on mammogram 07/24/2013 Cerebrovascular accident (CVA) ([facility]) 06/23/2009 Social History Tobacco Use Smoking status: Never Smokeless tobacco: Never Vaping Use Vaping status: Never Used Substance Use Topics Alcohol use: Not Currently Drug use: Never Family History Problem Relation Name Age of Onset Breast cancer Mother Lung cancer Father Colon cancer Paternal Grandfather Allergies Allergen Reactions Alendronate Unknown and Other Cephalexin Unknown Dye [Gadolinium] Escitalopram Other and Unknown Iodine Other reaction(s): Hives and/or rash Nickel Unknown Penicillins Unknown Other reaction(s): Intolerance-unknown Patient had multiple doses of IV Zosyn in May 2023 and tolerated without issue Pregabalin Unknown Salicylates Other and Unknown D/t HX of CVA Iodinated Contrast Media Hives Hives x 5 locations, redness of right eye. Current Outpatient Medications Medication Sig Dispense Refill Docusate Sodium (DSS) 100 MG capsule Take 100 mg by mouth twice a day. memantine (Namenda) 10 MG tablet Take 1 tablet by mouth 2 times daily. ondansetron (Zofran) 8 MG tablet Take 8 mg by mouth every 8 hours as needed. pantoprazole (ProtoNix) 40 MG EC tablet Take 40 mg by mouth daily. polyethylene glycol, PEG, 3350 (Miralax) 17 g packet Take 17 g by mouth daily. prochlorperazine (Compazine) 10 MG tablet Take 10 mg by mouth every 6 hours as needed. sennosides (Senokot) 8.6 MG tablet Take 17.2 mg by mouth daily. acetaminophen (Tylenol) 325 MG tablet Take 650 mg by mouth every 6 hours as needed. anastrozole (Arimidex) 1 MG tablet Take 1 tablet (1 mg total) by mouth daily. Swallow whole with a drink of water. 90 tablet 3 anastrozole (Arimidex) 1 MG tablet Take 1 tablet by mouth daily. CALCIUM CARB-CHOLECALCIFEROL PO Take by mouth. Calcium Carbonate-Vitamin D (OSCAL 500/200 D-3 PO) Take 1 tablet by mouth in the morning. carbidopa-levodopa (Sinemet) 25-100 MG tablet every 8 hours. carbidopa-levodopa (Sinemet) 25-100 MG tablet Take 1 tablet by mouth 3 times a day. carbidopa-levodopa (Sinemet) 25-100 MG tablet every 8 hours. cholecalciferol (Vitamin D-3) 50 MCG (2000 UT) tablet Take 1 tablet by mouth daily. dexAMETHasone (Decadron) 4 MG tablet Take 1 tablet (4 mg) by mouth in the morning and 1 tablet (4 mg) in the evening. Take with meals. Do all this for 1 day. Take 6 hours and 12 hours prior to first cycle of chemotherapy.. 2 tablet 0 diphenhydrAMINE HCl (NERVINE PO) daily. DULoxetine (Cymbalta) [address] capsule Take 1 capsule (20 mg) by mouth once daily. loratadine (Claritin) 10 MG tablet Take 10 mg by mouth daily. loratadine (Claritin) 10 MG tablet Take by mouth daily. loratadine (Claritin) 10 MG tablet Take by mouth daily. memantine (Namenda) 10 MG tablet Take 10 mg by mouth in the morning and 10 mg in the evening. MULTIPLE VITAMIN PO Take 1 capsule by mouth in the morning. Multiple Vitamins-Minerals (THERA M PLUS PO) Take 1 each by mouth in the morning. psyllium (Metamucil) 28.3 % powder Take 3.4 g of fiber by mouth daily. VITAMIN D PO Take by mouth. 2 gummies a day No current facility-administered medications for this visit. Review of Systems Constitutional: Positive for fatigue. Negative for appetite change, chills, diaphoresis, fever and unexpected weight change. HENT: Negative for dental problem, mouth sores, nosebleeds, sneezing, sore throat, tinnitus, trouble swallowing and voice change. Eyes: Negative for photophobia, pain and visual disturbance. Respiratory: Negative for cough, shortness of breath and wheezing. Cardiovascular: Negative for chest pain, palpitations and leg swelling. Gastrointestinal: Negative for abdominal distention, abdominal pain, blood in stool, constipation, diarrhea, nausea and vomiting. Endocrine: Negative for cold intolerance and heat intolerance. Genitourinary: Negative for difficulty urinating, frequency, hematuria and urgency. Musculoskeletal: Negative for arthralgias, back pain, gait problem and myalgias. Skin: Negative for pallor and rash. Allergic/Immunologic: Negative for immunocompromised state. Neurological: Positive for speech difficulty and weakness. Negative for dizziness, syncope, light-headedness, numbness and headaches. Hematological: Negative for adenopathy. Does not bruise/bleed easily. Psychiatric/Behavioral: Negative for confusion and sleep disturbance. The patient is not nervous/anxious. All other systems reviewed and are negative. Vitals: 08/10/24 0928 BP: 105/59 BP Location: Right arm Patient Position: Sitting Pulse: 76 Temp: 37.2 C (98.9 F) TempSrc: Temporal SpO2: 97% Weight: 92.9 kg (204 lb 14.4 oz) Height: 1.651 m (5' 5) ECOG PS = 3 Physical Exam Vitals and nursing note reviewed. Constitutional: General: She is not in acute distress. Appearance: Normal appearance. She is not ill-appearing. HENT: Head: Normocephalic and atraumatic. Nose: Nose normal. Mouth/Throat: Pharynx: Oropharynx is clear. No oropharyngeal exudate or posterior oropharyngeal erythema. Eyes: General: No scleral icterus. Extraocular Movements: Extraocular movements intact. Conjunctiva/sclera: Conjunctivae normal. Pupils: Pupils are equal, round, and reactive to light. Cardiovascular: Rate and Rhythm: Normal rate and regular rhythm. Heart sounds: Normal heart sounds. No murmur heard. Pulmonary: Effort: Pulmonary effort is normal. No respiratory distress. Breath sounds: Normal breath sounds. No wheezing. Abdominal: General: Abdomen is flat. Bowel sounds are normal. There is no distension. Palpations: Abdomen is soft. There is no mass. Tenderness: There is no abdominal tenderness. There is no guarding. Musculoskeletal: General: No swelling or tenderness. Normal range of motion. Cervical back: Normal range of motion and neck supple. Right lower leg: No edema. Left lower leg: No edema. Lymphadenopathy: Cervical: No cervical adenopathy. Skin: General: Skin is warm and dry. Findings: No bruising or rash. Neurological: Mental Status: She is alert and oriented to person, place, and time. Mental status is at baseline. Motor: Weakness present. Psychiatric: Mood and Affect: Mood normal. Thought Content: Thought content normal. Right breast: no masses noted Left breast: no masses noted. No bilateral axillary or supraclavicular adenopathy is noted. Imaging/Labs: No visits with results within 1 Month(s) from this visit. Latest known visit with results is: Infusion on 09/23/2023 Component Date Value Ref Range Status Auto WBC 09/23/2023 5.5 3.6 - 10.7 10*3/uL Final RBC 09/23/2023 4.76 3.80 - 5.20 10*6/uL Final Hemoglobin 09/23/2023 14.2 11.7 - 16.0 g/dL Final Hematocrit 09/23/2023 43.9 35.0 - 47.0 % Final MCV 09/23/2023 92.2 77.0 - 99.0 fL Final MCH 09/23/2023 29.8 26.0 - 34.0 pg Final MCHC 09/23/2023 32.3 30.5 - 36.0 % Final RDW 09/23/2023 13.9 11.5 - 15.0 % Final Platelets 09/23/2023 205 140 - 440 10*3/uL Final MPV 09/23/2023 9.8 9.0 - 12.7 fL Final MPV is a calculated measurement using platelet volume ratio nRBC 09/23/2023 0.0 0.0 - 2.0 /100 WBCs Final Neutrophils Relative 09/23/2023 73.3 38.0 - 82.0 % Final Lymphocytes Relative 09/23/2023 16.8 15.0 - 45.0 % Final Monocytes Relative 09/23/2023 6.8 5.0 - 13.0 % Final Eosinophils Relative 09/23/2023 2.2 0.0 - 6.0 % Final Basophils Relative 09/23/2023 0.5 0.0 - 2.0 % Final Immature Grans % 09/23/2023 0.4 0.0 - 2.0 % Final Neutrophils Absolute 09/23/2023 4.0 1.8 - 7.5 10*3/uL Final Lymphocytes Absolute 09/23/2023 0.9 (L) 1.0 - 4.3 10*3/uL Final Monocytes Absolute 09/23/2023 0.4 0.0 - 0.9 10*3/uL Final Eosinophils Absolute 09/23/2023 0.1 0.0 - 0.5 10*3/uL Final Basophils Absolute 09/23/2023 0.0 0.0 - 0.2 10*3/uL Final Immature Grans Absolute 09/23/2023 0.0 <0.1 10*3/uL Final SODIUM - [facility] 09/23/2023 140 128 - 145 mEq/L Final POTASSIUM - [facility] 09/23/2023 3.8 3.6 - 5.1 mEq/L Final CHLORIDE - [facility] 09/23/2023 104 98 - 108 mEq/L Final CARBON DIOXIDE - [facility] 09/23/2023 27 18 - 33 mEq/L Final ANION GAP - [facility] 09/23/2023 9.00 -4.00 - 12.00 mmol/L Final UREA NITROGEN - [facility] 09/23/2023 19 7 - 22 mg/dL Final CREATININE - [facility] 09/23/2023 0.8 0.6 - 1.2 mg/dL Final GLUCOSE - [facility] 09/23/2023 133 (H) 73 - 118 mg/dL Final CALCIUM - [facility] 09/23/2023 9.3 8.0 - 10.3 mg/dL Final AST(SGOT) - [facility] 09/23/2023 29 11 - 38 U/L Final ALT - [facility] 09/23/2023 20 10 - 47 U/L Final ALKALINE PHOSPHATASE - [facility] 09/23/2023 83 42 - 141 U/L Final ALBUMIN - [facility] 09/23/2023 3.4 3.3 - 5.5 g/dL Final BILIRUBIN, TOTAL - [facility] 09/23/2023 0.7 0.2 - 1.6 mg/dL Final TOTAL PROTEIN - [facility] 09/23/2023 6.5 6.4 - 8.1 g/dL Final EGFR - [facility] 09/23/2023 76.0 >60.0 mL/min/1.73m*2 Final Imaging Reviewed: Transthoracic echocardiogram (TTE) complete with contrast, bubble, strain, and 3D PRN Left Ventricle: Left ventricle size is normal. Normal wall thickness. Normal left ventricular systolic function. EF by 2D Simpsons Biplane is 60%. Global longitudinal strain is normal with a value of -17.3%. Normal wall motion. Normal diastolic function. Normal left ventricular filling pressure. Tissue Doppler velocity is reduced. MV E/e' lateral velocity is 7.43. MV E/e' septal velocity is 8.67. Right Ventricle: Right ventricle size is normal. Normal systolic function. Aortic Valve: Mild (1+) regurgitation. Tricuspid Valve: Trace regurgitation. Pulmonic Valve: Trace regurgitation. Left Atrium: Left atrium size is normal. No significant valvular abnormalities. - I have reviewed all available pertinent laboratory, imaging and pathology results with the patient and/or family members today. Assessment/Plan: Diagnosis Plan 1. Malignant neoplasm of upper-outer quadrant of left breast in female, estrogen receptor positive (HCC) Bilateral screening mammogram with tomosynthesis 1) stage 1A left breast cancer ER+/WV+/HER2+ pT1c pN0 cM0 s/p left partial mastectomy and SLNBx to clear margins on 02/18/23 - Today, we again reviewed the diagnosis, staging, natural history, prognosis, and treatment options for her stage 1 left breast cancer. NCCN guidelines were reviewed. Treatment intent is curative. - no evidence of disease recurrence on exam today - continue adjuvant endocrine therapy with Arimidex 1 mg Po daily for 5 years. (Started 09/02/23) Potential side effects and anticipated benefits of Arimidex were reviewed with the patient and they agreed to proceed with treatment. - next mammogram March 2025; see orders - signs and symptoms of breast cancer recurrence were reviewed and the patient was instructed to call with any concerns 2) bone health - DEXA 09/05/23 within normal limits - calcium and vitamin d supplements recommended All questions were answered to the satisfaction of the patient and/or family. Return to office in 6 months, or sooner if worrisome signs/symptoms arise. Stevie Escobedo DO Hematology/Medical Oncology documented in this encounter [facility] 08-02-2024 Telephone encounter Note Refill request received for anastrazole. Prescription pended. [facility] 08-02-2024 Miscellaneous Notes Refill request received for anastrazole. Prescription pended. documented in this encounter [facility] 03-16-2024 History of Present illness Narrative RADIATION ONCOLOGY FOLLOW UP PATIENT: Madiha Perales DATE OF SERVICE: 03/16/2024 : 1945 AGE: 79 y.o. PRIMARY SITE AND HISTOPATHOLOGY: Left breast, grade 3 invasive ductal carcinoma, ER positive, WV positive, HER2 positive. STAGE: cT1b N0 M0, IA; pT1c N0 M0, IA HISTORY OF PRESENT ILLNESS: This is a 79-year-old female who was noted to have an abnormal screening mammogram of the upper outer quadrant of the left breast on 11/27/2022. The area was asymptomatic and nonpalpable. Diagnostic views and ultrasound were performed on 01/21/2023. This identified a 0.9 x 0.9 x 1 cm irregular mass in the left breast. Biopsy was performed at [facility] on 01/28/2023. This revealed grade 3 invasive ductal carcinoma measuring at least 8 mm in dimension. ER positive at 100%, WV positive at 70% and HER2 positive at 3+. The patient underwent lumpectomy and sentinel node removal on 02/18/2023. Pathology revealed grade 3 invasive ductal carcinoma measuring 1.9 cm. There was focal DCIS of high-grade. Extensive lymphovascular invasion. Margins were negative for invasive and in situ component at greater than 2 mm. 6 nodes were removed, 5 sentinel and 1 nonsentinel. All were negative. Pathologically staged T1CN0. We were consulted to discuss postoperative radiation therapy. The patient was seen by medical oncology and started weekly Taxol on 04/01/2023 for planned 12 cycles. Trazimera was started with cycle 2. Taxol was discontinued after the eighth cycle on 05/27/2023 due to symptoms. Trazimera was scheduled to continue for 1 year, but required stoppage after the 09/23/2023 dose. Arimidex started 09/02/2023. TREATMENT PLAN: Hypofractionated daily radiation to the left breast. INTERVAL SINCE RADIATION: 1 month ? 07/14/23 - 08/01/23: 40.05/40.05 Gy to the L Breast in 15 fractions of 2.67 Gy using the 3D technique with 10 MV. ? 08/04/23 - 08/12/23: 10.00/10.00 Gy to the L Brst Surg Site in 5 fractions of 2.00 Gy using the Isodose C/Daily IGRT technique with 6 &10 MV. INTERVAL HISTORY: The patient returns with her today for follow-up. Since last seen she required admission for COVID infection with subsequent discharged to [facility]. She utilizes a cane or walker at times around the home and a wheelchair for distance. She is undergoing physical therapy at [facility]. She denies any breast issues. She remains on the Arimidex. The Trazimera was discontinued earlier this year. Appetite is good. Energy level is fair. No respiratory or cardiac complaints. No swelling in the extremities. She is up-to-date with mammography. She continues to follow with her surgeon and medical oncologist. PAST MEDICAL HISTORY: Past Medical History: Diagnosis Date Allergic rhinitis Anxiety Back pain Lower back pain Breast calcifications on mammogram Dementia (HCC) Depression Eczema H/O colonoscopy Hemorrhoid Hx of rosacea Lower extremity edema MARCY (obstructive sleep apnea) The patient wears CPAP Parkinson disease ([facility]) Stroke ([facility]) 2009 Torn meniscus Uterine cancer (CMS/HCC) (HCC) 2005 PAST SURGICAL HISTORY: Past Surgical History: Procedure Laterality Date BREAST LUMPECTOMY 02/18/2023 Left breast Lumpectomy and sentinel lymph node biopsy BREAST LUMPECTOMY Left 2013 Benign left breast lumpectomy CATARACT EXTRACTION, BILATERAL 2012 Bilateral cataract surgery HYSTERECTOMY 2006 Total Hysterectomy KNEE ARTHROSCOPY Right ALLERGIES: Allergies as of 03/16/2024 - Reviewed 03/16/2024 Allergen Reaction Noted Alendronate Unknown and Other 05/07/2010 Cephalexin Unknown 05/07/2010 Dye [gadolinium] 03/06/2023 Escitalopram Other and Unknown 10/24/2022 Iodine 03/06/2023 Nickel Unknown 05/07/2010 Penicillins Unknown 05/12/2010 Pregabalin Unknown 05/07/2010 Salicylates Other and Unknown 05/07/2010 Iodinated contrast media Hives 06/14/2010 MEDICATIONS: Current Outpatient Medications Medication Sig Dispense Refill anastrozole (Arimidex) 1 MG tablet Take 1 tablet (1 mg total) by mouth daily. Swallow whole with a drink of water. 30 tablet 5 Calcium Carbonate-Vitamin D (OSCAL 500/200 D-3 PO) Take 1 tablet by mouth in the morning. carbidopa-levodopa (Sinemet) 25-100 MG tablet every 8 hours. diphenhydrAMINE HCl (NERVINE PO) daily. DULoxetine (Cymbalta) [address] capsule Take 1 capsule (20 mg) by mouth once daily. loratadine (Claritin) 10 MG tablet Take by mouth daily. memantine (Namenda) 10 MG tablet Take 10 mg by mouth in the morning and 10 mg in the evening. MULTIPLE VITAMIN PO Take 1 capsule by mouth in the morning. psyllium (Metamucil) 28.3 % powder Take 3.4 g of fiber by mouth daily. VITAMIN D PO Take by mouth. 2 gummies a day amoxicillin (Amoxil) 500 MG tablet Take 500 mg by mouth in the morning and 500 mg before bedtime. Unknown dose, unknown strength. CALCIUM CARB-CHOLECALCIFEROL PO Take by mouth. dexAMETHasone (Decadron) 4 MG tablet Take 1 tablet (4 mg) by mouth in the morning and 1 tablet (4 mg) in the evening. Take with meals. Do all this for 1 day. Take 6 hours and 12 hours prior to first cycle of chemotherapy.. 2 tablet 0 loratadine (Claritin) 10 MG tablet Take 10 mg by mouth daily. Multiple Vitamins-Minerals (THERA M PLUS PO) Take 1 each by mouth in the morning. No current facility-administered medications for this encounter. REVIEW OF SYSTEMS: As above. Pain score 0. KPS: 60 SUMMARY OF SIGNIFICIANT X-RAY/LABORATORY FINDINGS: Next mammogram due in March by report. Blood count on 10/27/2023 shows a normal white count of 5.72, hemoglobin of 12.9 and platelet count 160,000. BMP on 10/27/2023 was within normal limits except for chloride elevation 107. eGFR was normal at 88. PHYSICAL EXAM: Accompanied by . BP 127/82 Pulse 82 Temp 97.7 F (36.5 C) Resp 20 Ht 5' 5 (1.651 m) Wt 201 lb 1.6 oz (91.2 kg) SpO2 96% BMI 33.46 kg/m /Pain Score: 0 - No pain /Fatigue Assessment: Must curtail daily activities even with rest periods and earlier bedtime GENERAL: Awake, alert, oriented, no anxiety, dressed appropriately, appears of stated age. Utilizing a wheelchair. Speech pattern fluent but at times looks at her for guidance in answering questions. Requires assistance getting onto the exam table. LUNGS: Clear to auscultation. No rales or rhonchi. HEART: Regular rate and rhythm, S1-S2 noted no murmur. NECK: Symmetric. NODES: No neck, supraclavicular, infraclavicular, or axillary adenopathy. BREAST: Left breast has postsurgery changes noted. Slightly smaller and more uplifted. There is a faint scar in the upper inner region of the left breast where she had the prior lumpectomy. Healed curvilinear scar is located in the upper outer quadrant as well as a healed scar in the left axilla. Postsurgery changes in the region. No suspicious mass in either breast. No nipple discharge. Skin in treatment area shows minimal hyperpigmented changes. Excellent cosmetic effect. ABDOMEN: Soft, nontender, no hepatosplenomegaly. MUSCULOSKELETAL: No swelling or calf tenderness bilaterally. No spine or posterior chest wall tenderness. Good range of motion in both shoulders. No gross arm edema evident. Skin of the lateral right breast area near the bra line shows two lesions that look like bug bites. Her notes that she had similar area on the abdominal wall. He has an antibiotic cream to use for this. IMPRESSION: Madiha Perales is a 79 y.o. female with history of left breast cancer. I reviewed her epic record. She does not appear to have recurrence. Overall her health is fair. Have encouraged her to continue working with physical therapy. She is on the Arimidex. She continues to follow with her other physicians. PLAN: Return to office in 1 year. Vicki Diego MD Total time: 24 minutes in chart review, lab/radiology evaluation/interpretation, patient exam, patient counseling and care coordination. The [facility] Department of Radiation Oncology is an Accredited Facility of the [employer] ([employer]). This document was completed utilizing speech recognition software. Grammatical errors, random word insertions, pronoun errors, and incomplete sentences are an occasional consequence of this system due to software limitations, ambient noise, and hardware issues. Any formal questions or concerns about the content, text or information contained within the body of this dictation should be directly addressed to the provider for clarification. documented in this encounter [facility] 03-16-2024 Nurse Note The patient is here at [facility] with her for follow up with Dr. Diego. She arrived in a wheelchair. She uses a care or walker at times to ambulate around the house. She does physical therapy at [facility]. She denies pain at the current time. She denies skin issues at the previous site of radiation. Her appetite and sleeping are good. Her energy level is fair. She is taking Arimidex as prescribed. She is scheduled for her next mammogram in March of 2024. She continues to follow up with Dr. Choi and Dr. Escobedo. [facility] 03-16-2024 Nurse Note The patient is here at [facility] with her for follow up with Dr. Diego. She arrived in a wheelchair. She uses a care or walker at times to ambulate around the house. She does physical therapy at [facility]. She denies pain at the current time. She denies skin issues at the previous site of radiation. Her appetite and sleeping are good. Her energy level is fair. She is taking Arimidex as prescribed. She is scheduled for her next mammogram in March of 2024. She continues to follow up with Dr. Choi and Dr. Escobedo. documented in this encounter [facility] 02-19-2024 Note HNO ID: [id number] Author: TORRIE CHOI MD Service: ? Author Type: Physician Type: Progress Notes Filed: 02/19/2024 14:08 Note Text: PROGRESS NOTES PATIENT NAME: Madiha Perales Assessment ASSESSMENT/PLAN: (C50.412, Z17.0) Malignant neoplasm of upper-outer quadrant of left breast in female, estrogen receptor positive (HCC) (primary encounter diagnosis) Madiha presents in follow-up of her left breast cancer diagnosed in January 2023. There is no clinical evidence for recurrence. She is scheduled for her next mammogram in March. She can follow-up with oncology as scheduled. She can return to see me as needed. I have encouraged her to discuss Arimidex with Dr. Escobedo. No orders found for this visit on 02/19/24. SUBJECTIVE CHIEF COMPLAINT: Patient presents with: Follow Up: follow up Malignant neoplasm of upper-outer quadrant of left breast in female, estrogen receptor positive (HCC) [facility] Oncology Notes under scanned Documents INTERVAL HISTORY OF PRESENT ILLNESS: Madiha presents in follow-up of her left breast cancer diagnosed in January 2023. She was treated with chemotherapy, Herceptin, and radiation. She was not able to complete all of her therapies due to her worsening dementia. She is currently on Arimidex. Her is concerned that this may be worsening her dementia. Overall she is without complaint. HISTORIES: PAST MEDICAL HISTORY No date: Anemia 02/05/2023: Anxiety and depression 07/24/2013: Breast calcifications on mammogram No date: Cancer (HCC) Comment: uterine 06/05/2023: Fever in adult 10/08/2023: Obesity, Class I, BMI 30-34.9 No date: MARCY on CPAP 02/05/2023: MARCY on CPAP 07/24/2005: PMH - PAST MEDICAL HISTORY OF Comment: Uterine cancer s/p hyst (no XRT/chemo needed) 10/08/2023: Senile dementia (HCC) Comment: per dgtr taking meds to slow progression 06/23/2009: Stroke (HCC) PAST SURGICAL HISTORY 06/23/1977: BREAST BIOPSY Comment: left breast,benign 02/18/2023: BREAST LUMPECTOMY HX; Left Comment: Dr. Choi 06/23/2012: COLONOSCOPY 07/24/2005: HYSTERECTOMY HX Comment: total 08/09/2013: MAMMOTOME BIOPSY RIGHT No date: PAST SURGICAL HISTORY OF Comment: right knee arthroscopy for torn meniscus, no hardware 06/23/2012: REMOVE CATARACT, INSERT LENS, INTRACAPSUL ALLERGIES: Alendronic Acid, Asa [Salicylates], Cephalexin, Lyrica [Pregabalin], Mri Contrast [Iodine], Nickel, and Penicillins MEDICATIONS: Current Outpatient Medications Medication Sig anastrozole (ARIMIDEX) 1 mg tablet Take 1 mg by mouth once daily. memantine (NAMENDA) 10 mg tablet Take 10 mg by mouth once daily. ondansetron (ZOFRAN) 8 mg tablet Take 8 mg by mouth every 8 hours as needed for nausea/vomiting. prochlorperazine (COMPAZINE) 10 mg tablet Take 10 mg by mouth every 6 hours as needed for nausea/vomiting. Multivitamin capsule Take 1 capsule by mouth once daily. loratadine (CLARITIN) 10 mg tablet Take 1 tablet by mouth every afternoon. DULoxetine (CYMBALTA) 20 mg capsule Take 1 capsule (20 mg) by mouth once daily. carbidopa-levodopa (SINEMET 25-100) 25-100 mg per tablet Take 1 tablet by mouth three times a day. Take 1 tablet at 10 am, 3 pm, and 8 pm No current facility-administered medications for this visit. FAMILY HISTORY Problem Relation Age of Onset Breast Cancer Mother Cancer Mother Thyroid Mother other (htn [Other]) Mother other (hyperlipidemia [Other]) Mother other (hypothyroid [Other]) Mother Cancer Father other (lung cancer [Other]) Father other (liver cancer [Other]) Father other (healthy [Other]) Sister other (healthy [Other]) Brother Hypertension Maternal Grandmother Stroke Maternal Grandfather other (cva [Other]) Maternal Grandfather Cancer Paternal Grandmother other (brain cancer [Other]) Paternal Grandmother Colon Cancer Paternal Grandfather Anesthesia Problems No Family History Social History Tobacco Use Smoking status: Never Smokeless tobacco: Never Vaping Use Vaping status: Never Used Substance Use Topics Alcohol use: No Drug use: No OBJECTIVE PHYSICAL EXAM: BP 124/84 Pulse 79 Ht 5' 5 (1.65m) Wt 207 lb (93.9kg) SpO2 97% BMI 34.45 kg/(m2). General: Well developed, well-nourished, female in no distress HEENT: Normocephalic, atraumatic. Extraocular movements intact. Sclera are nonicteric. Breasts: Well-healed left breast incisions, no palpable masses of concern. No masses in the right breast of concern. No nipple discharge. No skin changes. No axillary lymphadenopathy bilaterally. Heart: Regular rate and rhythm, no murmur Lungs: Clear to auscultation without wheezes Extremities: No lymphedema Neurologic: Alert, oriented, and appropriate. Neurologic exam is symmetric and nonfocal. DATA: Diagnostic tests reviewed for today's visit: none Torrie Choi MD [facility] 02-19-2024 History of Present illness Narrative PROGRESS NOTES PATIENT NAME: Madiha Perales Assessment ASSESSMENT/PLAN: (C50.412, Z17.0) Malignant neoplasm of upper-outer quadrant of left breast in female, estrogen receptor positive (HCC) (primary encounter diagnosis) Madiha presents in follow-up of her left breast cancer diagnosed in January 2023. There is no clinical evidence for recurrence. She is scheduled for her next mammogram in March. She can follow-up with oncology as scheduled. She can return to see me as needed. I have encouraged her to discuss Arimidex with Dr. Escobedo. No orders found for this visit on 02/19/24. SUBJECTIVE CHIEF COMPLAINT: Patient presents with: Follow Up: follow up Malignant neoplasm of upper-outer quadrant of left breast in female, estrogen receptor positive (HCC) [facility] Oncology Notes under scanned Documents INTERVAL HISTORY OF PRESENT ILLNESS: Madiha presents in follow-up of her left breast cancer diagnosed in January 2023. She was treated with chemotherapy, Herceptin, and radiation. She was not able to complete all of her therapies due to her worsening dementia. She is currently on Arimidex. Her is concerned that this may be worsening her dementia. Overall she is without complaint. HISTORIES: PAST MEDICAL HISTORY No date: Anemia 02/05/2023: Anxiety and depression 07/24/2013: Breast calcifications on mammogram No date: Cancer (HCC) Comment: uterine 06/05/2023: Fever in adult 10/08/2023: Obesity, Class I, BMI 30-34.9 No date: MARCY on CPAP 02/05/2023: MARCY on CPAP 07/24/2005: PMH - PAST MEDICAL HISTORY OF Comment: Uterine cancer s/p hyst (no XRT/chemo needed) 10/08/2023: Senile dementia (HCC) Comment: per dgtr taking meds to slow progression 06/23/2009: Stroke (HCC) PAST SURGICAL HISTORY 06/23/1977: BREAST BIOPSY Comment: left breast,benign 02/18/2023: BREAST LUMPECTOMY HX; Left Comment: Dr. Choi 06/23/2012: COLONOSCOPY 07/24/2005: HYSTERECTOMY HX Comment: total 08/09/2013: MAMMOTOME BIOPSY RIGHT No date: PAST SURGICAL HISTORY OF Comment: right knee arthroscopy for torn meniscus, no hardware 06/23/2012: REMOVE CATARACT, INSERT LENS, INTRACAPSUL ALLERGIES: Alendronic Acid, Asa [Salicylates], Cephalexin, Lyrica [Pregabalin], Mri Contrast [Iodine], Nickel, and Penicillins MEDICATIONS: Current Outpatient Medications Medication Sig anastrozole (ARIMIDEX) 1 mg tablet Take 1 mg by mouth once daily. memantine (NAMENDA) 10 mg tablet Take 10 mg by mouth once daily. ondansetron (ZOFRAN) 8 mg tablet Take 8 mg by mouth every 8 hours as needed for nausea/vomiting. prochlorperazine (COMPAZINE) 10 mg tablet Take 10 mg by mouth every 6 hours as needed for nausea/vomiting. Multivitamin capsule Take 1 capsule by mouth once daily. loratadine (CLARITIN) 10 mg tablet Take 1 tablet by mouth every afternoon. DULoxetine (CYMBALTA) 20 mg capsule Take 1 capsule (20 mg) by mouth once daily. carbidopa-levodopa (SINEMET 25-100) 25-100 mg per tablet Take 1 tablet by mouth three times a day. Take 1 tablet at 10 am, 3 pm, and 8 pm No current facility-administered medications for this visit. FAMILY HISTORY Problem Relation Age of Onset Breast Cancer Mother Cancer Mother Thyroid Mother other (htn [Other]) Mother other (hyperlipidemia [Other]) Mother other (hypothyroid [Other]) Mother Cancer Father other (lung cancer [Other]) Father other (liver cancer [Other]) Father other (healthy [Other]) Sister other (healthy [Other]) Brother Hypertension Maternal Grandmother Stroke Maternal Grandfather other (cva [Other]) Maternal Grandfather Cancer Paternal Grandmother other (brain cancer [Other]) Paternal Grandmother Colon Cancer Paternal Grandfather Anesthesia Problems No Family History Social History Tobacco Use Smoking status: Never Smokeless tobacco: Never Vaping Use Vaping status: Never Used Substance Use Topics Alcohol use: No Drug use: No OBJECTIVE PHYSICAL EXAM: BP 124/84 Pulse 79 Ht 5' 5 (1.65m) Wt 207 lb (93.9kg) SpO2 97% BMI 34.45 kg/(m^2). General: Well developed, well-nourished, female in no distress HEENT: Normocephalic, atraumatic. Extraocular movements intact. Sclera are nonicteric. Breasts: Well-healed left breast incisions, no palpable masses of concern. No masses in the right breast of concern. No nipple discharge. No skin changes. No axillary lymphadenopathy bilaterally. Heart: Regular rate and rhythm, no murmur Lungs: Clear to auscultation without wheezes Extremities: No lymphedema Neurologic: Alert, oriented, and appropriate. Neurologic exam is symmetric and nonfocal. DATA: Diagnostic tests reviewed for today's visit: none Torrie Choi MD documented in this encounter [facility] 02-18-2024 History of Present illness Narrative Subjective Patient ID: Madiha Perales is a 79 y.o. female who presents for Follow-up (Citlaly is here to follow up for Parkinsonism/ dep. Her Marcos has a few questions to discuss today., ). HPI Citlaly was seen today for a routine follow-up of her medications, including those for Parkinson's disease, depression/anxiety, memory impairment. Medication(s) are being taken and tolerated as prescribed, without concerns, list reconciled today. There are no complaints of chest pain, shortness of breath, lower extremity edema, or exertional concerns In October she saw neurology, Dr. Reis, who made no changes in her medications. She has follow-up with him next month. At her last visit they discussed increasing her Sinemet to 4 times daily. She has not taken her medications this morning. Overnight she did fall out of bed, no injury sustained. Otherwise she has not fallen since her last visit here. Her mobility is improved with use of a cane, though she most often does not use it yet. Cognitive function has not worsened since her last visit, months oncology mention taking the anastrozole, wondering if this may affect her cognition He did change it to nighttime, wonders if he can stop it for a few weeks to see how she does. Review of Systems The full review of systems is negative with the exception of what is noted in HPI Objective BP 109/71 (BP Location: Right arm, Patient Position: Sitting, BP Cuff Size: Large adult) Pulse 72 Temp 36.7 C (98.1 F) (Temporal) Wt 94.3 kg (208 lb) SpO2 91% BMI 34.61 kg/m Physical Exam Constitutional/General appearance: alert, oriented, well-appearing, in no distress Head and face exam is normal No scleral icterus or conjunctival erythema present Hearing is grossly normal Respiratory effort is normal, no dyspnea noted Cortical function is normal Mood, affect, are pleasant, appropriate, and interactive. Insight is normal Assessment/Plan Parkinson's disease, continue Sinemet, follow-up with neurology as discussed, medication may need adjusted, consider increasing to 4 times daily or 1.5 tablets 3 times daily Continue memantine for memory impairment Oncology/breast care up-to-date and ongoing Duloxetine working sufficiently well for depression, they wish for no change. Follow-up as scheduled, Portions of this medical record have been created using voice recognition software and may have minor errors which are inherent in voice recognition systems. It has not been fully edited for typographical or grammatical errors documented in this encounter [facility] Work Phone: 02-04-2024 Telephone encounter Note Voice message left for patient re order Advised to call office if further questions or concerns. Number provided to call. Encounter closed. [facility] 02-04-2024 Miscellaneous Notes Voice message left for patient re order Advised to call office if further questions or concerns. Number provided to call. Encounter closed. Orders signed. Order placed per patient's request for mammogram and/or breast ultrasound. Routed to provider/MD to approve. Dr. Grubbs's office called to ask when patient needed scheduled for her next mamogram documented in this encounter [facility] 02-04-2024 Telephone encounter Note Orders signed. [facility] Work Phone: 02-03-2024 Telephone encounter Note Order placed per patient's request for mammogram and/or breast ultrasound. Routed to provider/MD to approve. [facility] 02-03-[address] Grubbs's office called to ask when patient needed scheduled for her next mamogram [facility] 02-03-2024 Telephone encounter Note Refill for Arimidex pended to be signed if agreeable. [facility] 02-03-2024 Miscellaneous Notes Refill for Arimidex pended to be signed if agreeable. documented in this encounter [facility] 02-03-2024 History of Present illness Narrative Hematology/Oncology Office Visit Oncology History: 1) stage 1A left breast cancer, invasive ductal carcinoma grade 3. ER+ WV+ HER2+. cT1b N0 M0; pT1c N0 M0, diagnosed 01/28/23. - Patient is a 78 yo F who presented with an abnormal screening mammogram of the upper outer quadrant of the left breast on 11/27/22. Diagnostic imaging and ultrasound were performed on 01/21/2023: a 0.9 x 0.9 x 1 cm irregular mass in the left breast. Biopsy was performed at [facility] on 01/28/2023 confirming grade 3 invasive ductal carcinoma ER positive 100%, WV positive 70% and HER2 positive at 3+. The patient underwent lumpectomy and sentinel node removal on 02/18/[address] Choi at [facility]: pathology revealed grade 3 invasive ductal carcinoma measuring 1.9 cm. There was focal DCIS and extensive lymphovascular invasion. Margins were negative for invasive and in situ component at greater than 2 mm. 6 axillary nodes were removed: 5 sentinel and 1 nonsentinel. All were negative. Pathologically staged T1CN0. - she was referred to [facility] for medical and radiation oncology. Her case was reviewed at our tumor board and adjuvant chemotherapy, radiation, and AI therapy were recommended. She started weekly taxol and herceptin on 04/01/23. She required a 25% reduction in Taxol for cycle 3 due to neutropenia. She completed 8 of the 12 planned cycles of weekly Taxol, but the Taxol was stopped early due to poor tolerance. Herceptin every 3 weeks continued. - radiation started 07/14/23 and she completed it 08/12/23 - Arimidex started 09/02/23. She had several falls and required hospitalizations. Herceptin discontinued (last dose was 09/23/23). HPI: Madiha Perales is a 79 y.o. female who comes in today for routine follow up. She has no breast concerns today and feels at her baseline. She is accompanied by her today. She arrived to clinic in a wheelchair. She is tolerating Arimidex well. No chest pain or shortness of breath. Appetite is good. No fevers or chills. No swelling. No headaches. No bone pain. Recall, patient has Parkinson's and had a stroke a few years ago, but is generally doing well at home. She is active the majority of the day and continues to take care of the house. She does have some mild expressive aphasia as well as short term memory loss. Past Medical History: Diagnosis Date Allergic rhinitis Anxiety Back pain Lower back pain Breast calcifications on mammogram Dementia (HCC) Depression Eczema H/O colonoscopy Hemorrhoid Hx of rosacea Lower extremity edema MARCY (obstructive sleep apnea) The patient wears CPAP Parkinson disease ([facility]) Stroke ([facility]) 2009 Torn meniscus Uterine cancer ([facility]HCC) ([facility]) 2005 Past Surgical History: Procedure Laterality Date BREAST LUMPECTOMY 02/18/2023 Left breast Lumpectomy and sentinel lymph node biopsy BREAST LUMPECTOMY Left 2013 Benign left breast lumpectomy CATARACT EXTRACTION, BILATERAL 2012 Bilateral cataract surgery HYSTERECTOMY 2006 Total Hysterectomy KNEE ARTHROSCOPY Right Patient Active Problem List Diagnosis Date Noted Memory loss 03/18/2023 Pigmented skin lesion suspicious for malignant neoplasm 03/18/2023 Malignant neoplasm of upper-outer quadrant of left breast in female, estrogen receptor positive ([facility]) 03/18/2023 Edema of both lower extremities 02/05/2023 Parkinsonism 02/05/2023 Allergic reaction to bee sting 10/29/2022 Allergic rhinitis 10/29/2022 Eczema 10/29/2022 Eczema 10/29/2022 Elevated TSH 10/29/2022 External hemorrhoids 10/29/2022 Hair loss 10/29/2022 Low back pain 10/29/2022 Menopausal state 10/29/2022 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[facility]) 10/29/2022 Mixed anxiety depressive disorder 10/29/2022 Obesity (BMI 30.0-34.9) 10/29/2022 Obstructive sleep apnea syndrome 10/29/2022 Falling 10/29/2022 Seborrheic keratosis 10/29/2022 Rosacea, acne 10/15/2022 Hemangioma of skin and subcutaneous tissue 04/24/2016 Breast calcifications on mammogram 07/24/2013 Cerebrovascular accident (CVA) ([facility]) 06/23/2009 Social History Tobacco Use Smoking status: Never Smokeless tobacco: Never Vaping Use Vaping status: Never Used Substance Use Topics Alcohol use: Not Currently Drug use: Never Family History Problem Relation Name Age of Onset Breast cancer Mother Lung cancer Father Colon cancer Paternal Grandfather Allergies Allergen Reactions Alendronate Unknown and Other Cephalexin Unknown Dye [Gadolinium] Escitalopram Other and Unknown Iodine Other reaction(s): Hives and/or rash Nickel Unknown Penicillins Unknown Other reaction(s): Intolerance-unknown Patient had multiple doses of IV Zosyn in May 2023 and tolerated without issue Pregabalin Unknown Salicylates Other and Unknown D/t HX of CVA Iodinated Contrast Media Hives Hives x 5 locations, redness of right eye. Current Outpatient Medications Medication Sig Dispense Refill amoxicillin (Amoxil) 500 MG tablet Take 500 mg by mouth in the morning and 500 mg before bedtime. Unknown dose, unknown strength. anastrozole (Arimidex) 1 MG tablet Take 1 tablet (1 mg total) by mouth daily. Swallow whole with a drink of water. 30 tablet 5 CALCIUM CARB-CHOLECALCIFEROL PO Take by mouth. Calcium Carbonate-Vitamin D (OSCAL 500/200 D-3 PO) Take 1 tablet by mouth in the morning. carbidopa-levodopa (Sinemet) 25-100 MG tablet every 8 hours. dexAMETHasone (Decadron) 4 MG tablet Take 1 tablet (4 mg) by mouth in the morning and 1 tablet (4 mg) in the evening. Take with meals. Do all this for 1 day. Take 6 hours and 12 hours prior to first cycle of chemotherapy.. 2 tablet 0 diphenhydrAMINE HCl (NERVINE PO) Nervine DULoxetine (Cymbalta) [address] capsule Take 1 capsule (20 mg) by mouth once daily. loratadine (Claritin) 10 MG tablet Take 10 mg by mouth daily. loratadine (Claritin) 10 MG tablet Take by mouth daily. memantine (Namenda) 10 MG tablet Take 10 mg by mouth daily. MULTIPLE VITAMIN PO Take 1 capsule by mouth in the morning. Multiple Vitamins-Minerals (THERA M PLUS PO) Take 1 each by mouth in the morning. psyllium (Metamucil) 28.3 % powder Take 3.4 g of fiber by mouth daily. VITAMIN D PO Take by mouth. 2 gummies a day No current facility-administered medications for this visit. Review of Systems Constitutional: Positive for fatigue. Negative for appetite change, chills, diaphoresis, fever and unexpected weight change. HENT: Negative for dental problem, mouth sores, nosebleeds, sneezing, sore throat, tinnitus, trouble swallowing and voice change. Eyes: Negative for photophobia, pain and visual disturbance. Respiratory: Negative for cough, shortness of breath and wheezing. Cardiovascular: Negative for chest pain, palpitations and leg swelling. Gastrointestinal: Negative for abdominal distention, abdominal pain, blood in stool, constipation, diarrhea, nausea and vomiting. Endocrine: Negative for cold intolerance and heat intolerance. Genitourinary: Negative for difficulty urinating, frequency, hematuria and urgency. Musculoskeletal: Negative for arthralgias, back pain, gait problem and myalgias. Skin: Negative for pallor and rash. Allergic/Immunologic: Negative for immunocompromised state. Neurological: Positive for speech difficulty and weakness. Negative for dizziness, syncope, light-headedness, numbness and headaches. Hematological: Negative for adenopathy. Does not bruise/bleed easily. Psychiatric/Behavioral: Negative for confusion and sleep disturbance. The patient is not nervous/anxious. All other systems reviewed and are negative. Vitals: 02/03/24 0930 BP: 124/63 Pulse: 80 Resp: 18 Temp: 36.9 C (98.4 F) SpO2: 94% Weight: 95.6 kg (210 lb 11.2 oz) ECOG PS = 3 Physical Exam Vitals and nursing note reviewed. Constitutional: General: She is not in acute distress. Appearance: Normal appearance. She is not ill-appearing. HENT: Head: Normocephalic and atraumatic. Nose: Nose normal. Mouth/Throat: Pharynx: Oropharynx is clear. No oropharyngeal exudate or posterior oropharyngeal erythema. Eyes: General: No scleral icterus. Extraocular Movements: Extraocular movements intact. Conjunctiva/sclera: Conjunctivae normal. Pupils: Pupils are equal, round, and reactive to light. Cardiovascular: Rate and Rhythm: Normal rate and regular rhythm. Heart sounds: Normal heart sounds. No murmur heard. Pulmonary: Effort: Pulmonary effort is normal. No respiratory distress. Breath sounds: Normal breath sounds. No wheezing. Abdominal: General: Abdomen is flat. Bowel sounds are normal. There is no distension. Palpations: Abdomen is soft. There is no mass. Tenderness: There is no abdominal tenderness. There is no guarding. Musculoskeletal: General: No swelling or tenderness. Normal range of motion. Cervical back: Normal range of motion and neck supple. Right lower leg: No edema. Left lower leg: No edema. Lymphadenopathy: Cervical: No cervical adenopathy. Skin: General: Skin is warm and dry. Findings: No bruising or rash. Neurological: Mental Status: She is alert and oriented to person, place, and time. Mental status is at baseline. Motor: Weakness present. Psychiatric: Mood and Affect: Mood normal. Thought Content: Thought content normal. Right breast: no masses noted Left breast: no masses noted. No bilateral axillary or supraclavicular adenopathy is noted. Imaging/Labs: No visits with results within 1 Month(s) from this visit. Latest known visit with results is: Infusion on 09/23/2023 Component Date Value Ref Range Status Auto WBC 09/23/2023 5.5 3.6 - 10.7 10*3/uL Final RBC 09/23/2023 4.76 3.80 - 5.20 10*6/uL Final Hemoglobin 09/23/2023 14.2 11.7 - 16.0 g/dL Final Hematocrit 09/23/2023 43.9 35.0 - 47.0 % Final MCV 09/23/2023 92.2 77.0 - 99.0 fL Final MCH 09/23/2023 29.8 26.0 - 34.0 pg Final MCHC 09/23/2023 32.3 30.5 - 36.0 % Final RDW 09/23/2023 13.9 11.5 - 15.0 % Final Platelets 09/23/2023 205 140 - 440 10*3/uL Final MPV 09/23/2023 9.8 9.0 - 12.7 fL Final MPV is a calculated measurement using platelet volume ratio nRBC 09/23/2023 0.0 0.0 - 2.0 /100 WBCs Final Neutrophils Relative 09/23/2023 73.3 38.0 - 82.0 % Final Lymphocytes Relative 09/23/2023 16.8 15.0 - 45.0 % Final Monocytes Relative 09/23/2023 6.8 5.0 - 13.0 % Final Eosinophils Relative 09/23/2023 2.2 0.0 - 6.0 % Final Basophils Relative 09/23/2023 0.5 0.0 - 2.0 % Final Immature Grans % 09/23/2023 0.4 0.0 - 2.0 % Final Neutrophils Absolute 09/23/2023 4.0 1.8 - 7.5 10*3/uL Final Lymphocytes Absolute 09/23/2023 0.9 (L) 1.0 - 4.3 10*3/uL Final Monocytes Absolute 09/23/2023 0.4 0.0 - 0.9 10*3/uL Final Eosinophils Absolute 09/23/2023 0.1 0.0 - 0.5 10*3/uL Final Basophils Absolute 09/23/2023 0.0 0.0 - 0.2 10*3/uL Final Immature Grans Absolute 09/23/2023 0.0 <0.1 10*3/uL Final SODIUM - [facility] 09/23/2023 140 128 - 145 mEq/L Final POTASSIUM - [facility] 09/23/2023 3.8 3.6 - 5.1 mEq/L Final CHLORIDE - [facility] 09/23/2023 104 98 - 108 mEq/L Final CARBON DIOXIDE - [facility] 09/23/2023 27 18 - 33 mEq/L Final ANION GAP - [facility] 09/23/2023 9.00 -4.00 - 12.00 mmol/L Final UREA NITROGEN - [facility] 09/23/2023 19 7 - 22 mg/dL Final CREATININE - [facility] 09/23/2023 0.8 0.6 - 1.2 mg/dL Final GLUCOSE - [facility] 09/23/2023 133 (H) 73 - 118 mg/dL Final CALCIUM - [facility] 09/23/2023 9.3 8.0 - 10.3 mg/dL Final AST(SGOT) - [facility] 09/23/2023 29 11 - 38 U/L Final ALT - [facility] 09/23/2023 20 10 - 47 U/L Final ALKALINE PHOSPHATASE - [facility] 09/23/2023 83 42 - 141 U/L Final ALBUMIN - [facility] 09/23/2023 3.4 3.3 - 5.5 g/dL Final BILIRUBIN, TOTAL - [facility] 09/23/2023 0.7 0.2 - 1.6 mg/dL Final TOTAL PROTEIN - [facility] 09/23/2023 6.5 6.4 - 8.1 g/dL Final EGFR - [facility] 09/23/2023 76.0 >60.0 mL/min/1.73m*2 Final Imaging Reviewed: Transthoracic echocardiogram (TTE) complete with contrast, bubble, strain, and 3D PRN Left Ventricle: Left ventricle size is normal. Normal wall thickness. Normal left ventricular systolic function. EF by 2D Simpsons Biplane is 60%. Global longitudinal strain is normal with a value of -17.3%. Normal wall motion. Normal diastolic function. Normal left ventricular filling pressure. Tissue Doppler velocity is reduced. MV E/e' lateral velocity is 7.43. MV E/e' septal velocity is 8.67. Right Ventricle: Right ventricle size is normal. Normal systolic function. Aortic Valve: Mild (1+) regurgitation. Tricuspid Valve: Trace regurgitation. Pulmonic Valve: Trace regurgitation. Left Atrium: Left atrium size is normal. No significant valvular abnormalities. - I have reviewed all available pertinent laboratory, imaging and pathology results with the patient and/or family members today. Assessment/Plan: Diagnosis Plan 1. Malignant neoplasm of upper-outer quadrant of left breast in female, estrogen receptor positive (HCC) 1) stage 1A left breast cancer ER+/WV+/HER2+ pT1c pN0 cM0 s/p left partial mastectomy and SLNBx to clear margins on 02/18/23 - Today, we again reviewed the diagnosis, staging, natural history, prognosis, and treatment options for her stage 1 left breast cancer. NCCN guidelines were reviewed. Treatment intent is curative. - no evidence of disease recurrence on exam today, however exam was limited due to body habitus and limited mobility - continue adjuvant endocrine therapy with Arimidex 1 mg Po daily for 5 years. (Started 09/02/23) Potential side effects and anticipated benefits of Arimidex were reviewed with the patient and they agreed to proceed with treatment. - will arrange follow up with Dr. Choi for mammograms at [facility]. Call placed to her office today to help coordinate follow up for patient. - signs and symptoms of breast cancer recurrence were reviewed and the patient was instructed to call with any concerns 2) bone health - DEXA 09/05/23 within normal limits - calcium and vitamin d supplements recommended All questions were answered to the satisfaction of the patient and/or family. Return to office in 6 months, or sooner if worrisome signs/symptoms arise. Stevie Escobedo DO Hematology/Medical Oncology documented in this encounter [facility] 11-11-2023 History of Present illness Narrative Subjective Patient ID: Madiha Perales is a 78 y.o. female who presents for Follow-up (Pt is here for a hospital follow up. Pt states she is doing better. Pt states she has no new concerns to discuss today. ). HPI Mrs. Perales was seen for a follow-up and review of her hospital and rehabilitation stay. She was hospitalized in September with a COVID-pneumonia, detected after mental status changes, weakness, lethargy, decreased appetite. She does have Parkinson's disease. After IV hydration, aerosols and steroids, she was improved enough to be discharged to [facility], where she got PT, OT, speech therapy. She is now under the care of home health care/therapy, chest PT and speech therapy. She requires moderate assistance to leave the home, does not drive. Medication(s) are being taken and tolerated as prescribed, without concerns, list reconciled today. There are no complaints of chest pain, shortness of breath, lower extremity edema, or exertional concerns For Parkinson's and dementia medications are now followed by neurology, Dr. Reis. Review of Systems Objective BP 130/77 (BP Location: Right arm, Patient Position: Sitting, BP Cuff Size: Adult) Pulse 82 Temp 36.9 C (98.5 F) (Temporal) Wt 93.9 kg (207 lb 1.6 oz) SpO2 93% BMI 34.46 kg/m Physical Exam Cardiac exam reveals a regular rate and rhythm Lungs are clear bilaterally. Trace bilateral lower extremity edema present. She is comfortable, pleasant, in no acute distress. Constitutional/General appearance: alert, oriented, well-appearing, in no distress Head and face exam is normal No scleral icterus or conjunctival erythema present Hearing is grossly normal Respiratory effort is normal, no dyspnea noted Cortical function is normal Mood, affect, are pleasant, appropriate, and interactive. Insight is normal Assessment/Plan Status post COVID-pneumonia, generalized weakness, hospital stay followed by inpatient rehabilitation, she will continue home health care at this point, transition to outpatient PT when able. Speech therapy has also been helpful. Sinemet and memantine prescribed by neurology. Continue to focus on lots of hydration, good nutrition Continue all other medications No labs warranted today Keep regular follow-up Portions of this medical record have been created using voice recognition software and may have minor errors which are inherent in voice recognition systems. It has not been fully edited for typographical or grammatical errors documented in this encounter [facility] Work Phone: 11-04-2023 History of Present illness Narrative Hematology/Oncology Office Visit Oncology History: 1) stage 1A left breast cancer, invasive ductal carcinoma grade 3. ER+ WV+ HER2+. cT1b N0 M0; pT1c N0 M0, diagnosed 01/28/23. - Patient is a 78 yo F who presented with an abnormal screening mammogram of the upper outer quadrant of the left breast on 11/27/22. Diagnostic imaging and ultrasound were performed on 01/21/2023: a 0.9 x 0.9 x 1 cm irregular mass in the left breast. Biopsy was performed at [facility] on 01/28/2023 confirming grade 3 invasive ductal carcinoma ER positive 100%, WV positive 70% and HER2 positive at 3+. The patient underwent lumpectomy and sentinel node removal on 02/18/[address] Choi at [facility]: pathology revealed grade 3 invasive ductal carcinoma measuring 1.9 cm. There was focal DCIS and extensive lymphovascular invasion. Margins were negative for invasive and in situ component at greater than 2 mm. 6 axillary nodes were removed: 5 sentinel and 1 nonsentinel. All were negative. Pathologically staged T1CN0. - she was referred to [facility] for medical and radiation oncology. Her case was reviewed at our tumor board and adjuvant chemotherapy, radiation, and AI therapy were recommended. She started weekly taxol and herceptin on 04/01/23. She required a 25% reduction in Taxol for cycle 3 due to neutropenia. She completed 8 of the 12 planned cycles of weekly Taxol, but the Taxol was stopped early due to poor tolerance. Herceptin every 3 weeks continued. - radiation started 07/14/23 and she completed it 08/12/23 - Arimidex started 09/02/23. She had several falls and required hospitalizations. Herceptin discontinued (last dose was 09/23/23). HPI: Madiha Perales is a 78 y.o. female who comes in today for hospital follow up. She is accompanied by her and daughters today. She is recovering at home. She was hospitalized for falls, Parkinson's etc. She had COVID and UTI as well. She is tolerating Arimidex well. No chest pain or shortness of breath. PO intake improved. No fevers or chills. No swelling. No headaches. She is participating in PT. Recall, patient has Parkinson's and had a stroke a few years ago, but is generally doing well at home. She is active the majority of the day and continues to take care of the house. She does have some mild expressive aphasia as well as short term memory loss. Past Medical History: Diagnosis Date Allergic rhinitis Anxiety Back pain Lower back pain Breast calcifications on mammogram Dementia ([facility]) Depression Eczema H/O colonoscopy Hemorrhoid Hx of rosacea Lower extremity edema MARCY (obstructive sleep apnea) The patient wears CPAP Parkinson disease ([facility]) Stroke ([facility]) 2009 Torn meniscus Uterine cancer ([facility]) ([facility]) 2005 Past Surgical History: Procedure Laterality Date BREAST LUMPECTOMY 02/18/2023 Left breast Lumpectomy and sentinel lymph node biopsy BREAST LUMPECTOMY Left 2014 Benign left breast lumpectomy CATARACT EXTRACTION, BILATERAL 2012 Bilateral cataract surgery HYSTERECTOMY 2006 Total Hysterectomy KNEE ARTHROSCOPY Right Patient Active Problem List Diagnosis Date Noted Memory loss 03/18/2023 Pigmented skin lesion suspicious for malignant neoplasm 03/18/2023 Malignant neoplasm of upper-outer quadrant of left breast in female, estrogen receptor positive ([facility]) 03/18/2023 Edema of both lower extremities 02/05/2023 Parkinsonism 02/05/2023 Allergic reaction to bee sting 10/29/2022 Allergic rhinitis 10/29/2022 Eczema 10/29/2022 Eczema 10/29/2022 Elevated TSH 10/29/2022 External hemorrhoids 10/29/2022 Hair loss 10/29/2022 Low back pain 10/29/2022 Menopausal state 10/29/2022 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HCC) 10/29/2022 Mixed anxiety depressive disorder 10/29/2022 Obesity (BMI 30.0-34.9) 10/29/2022 Obstructive sleep apnea syndrome 10/29/2022 Falling 10/29/2022 Seborrheic keratosis 10/29/2022 Rosacea, acne 10/15/2022 Hemangioma of skin and subcutaneous tissue 04/24/2016 Breast calcifications on mammogram 07/24/2013 Cerebrovascular accident (CVA) ([facility]) 06/23/2009 Social History Tobacco Use Smoking status: Never Smokeless tobacco: Never Vaping Use Vaping Use: Never used Substance Use Topics Alcohol use: Not Currently Drug use: Never Family History Problem Relation Name Age of Onset Breast cancer Mother Lung cancer Father Colon cancer Paternal Grandfather Allergies Allergen Reactions Alendronate Unknown and Other Cephalexin Unknown Dye [Gadolinium] Escitalopram Other and Unknown Iodine Other reaction(s): Hives and/or rash Nickel Unknown Penicillins Unknown Other reaction(s): Intolerance-unknown Patient had multiple doses of IV Zosyn in May 2023 and tolerated without issue Pregabalin Unknown Salicylates Other and Unknown D/t HX of CVA Iodinated Contrast Media Hives Hives x 5 locations, redness of right eye. Current Outpatient Medications Medication Sig Dispense Refill amoxicillin (Amoxil) 500 MG tablet Take 500 mg by mouth in the morning and 500 mg before bedtime. Unknown dose, unknown strength. anastrozole (Arimidex) 1 MG tablet Take 1 tablet (1 mg total) by mouth daily. Swallow whole with a drink of water. 30 tablet 5 CALCIUM CARB-CHOLECALCIFEROL PO Take by mouth. carbidopa-levodopa (Sinemet) 25-100 MG tablet every 8 hours. dexAMETHasone (Decadron) 4 MG tablet Take 1 tablet (4 mg) by mouth in the morning and 1 tablet (4 mg) in the evening. Take with meals. Do all this for 1 day. Take 6 hours and 12 hours prior to first cycle of chemotherapy.. 2 tablet 0 DULoxetine (Cymbalta) [address] capsule Take 1 capsule (20 mg) by mouth once daily. loratadine (Claritin) 10 MG tablet Take 10 mg by mouth daily. loratadine (Claritin) 10 MG tablet Take by mouth daily. memantine (Namenda) 10 MG tablet Take 10 mg by mouth daily. MULTIPLE VITAMIN PO Take 1 capsule by mouth in the morning. psyllium (Metamucil) 28.3 % powder Take 3.4 g of fiber by mouth daily. VITAMIN D PO Take by mouth. 2 gummies a day No current facility-administered medications for this visit. Review of Systems Constitutional: Positive for fatigue. Negative for appetite change, chills, diaphoresis, fever and unexpected weight change. HENT: Negative for dental problem, mouth sores, nosebleeds, sneezing, sore throat, tinnitus, trouble swallowing and voice change. Eyes: Negative for photophobia, pain and visual disturbance. Respiratory: Negative for cough, shortness of breath and wheezing. Cardiovascular: Negative for chest pain, palpitations and leg swelling. Gastrointestinal: Negative for abdominal distention, abdominal pain, blood in stool, constipation, diarrhea, nausea and vomiting. Endocrine: Negative for cold intolerance and heat intolerance. Genitourinary: Negative for difficulty urinating, frequency, hematuria and urgency. Musculoskeletal: Negative for arthralgias, back pain, gait problem and myalgias. Skin: Negative for pallor and rash. Allergic/Immunologic: Negative for immunocompromised state. Neurological: Positive for speech difficulty and weakness. Negative for dizziness, syncope, light-headedness, numbness and headaches. Hematological: Negative for adenopathy. Does not bruise/bleed easily. Psychiatric/Behavioral: Negative for confusion and sleep disturbance. The patient is not nervous/anxious. All other systems reviewed and are negative. Vitals: 11/04/23 0943 BP: 117/71 BP Location: Right arm Patient Position: Sitting Pulse: 81 Temp: 37.2 C (99 F) TempSrc: Temporal SpO2: 93% Weight: 91.6 kg (202 lb) Height: 1.626 m (5' 4) ECOG PS = 3 Physical Exam Vitals and nursing note reviewed. Constitutional: General: She is not in acute distress. Appearance: Normal appearance. She is not ill-appearing. HENT: Head: Normocephalic and atraumatic. Nose: Nose normal. Mouth/Throat: Pharynx: Oropharynx is clear. No oropharyngeal exudate or posterior oropharyngeal erythema. Eyes: General: No scleral icterus. Extraocular Movements: Extraocular movements intact. Conjunctiva/sclera: Conjunctivae normal. Pupils: Pupils are equal, round, and reactive to light. Cardiovascular: Rate and Rhythm: Normal rate and regular rhythm. Heart sounds: Normal heart sounds. No murmur heard. Pulmonary: Effort: Pulmonary effort is normal. No respiratory distress. Breath sounds: Normal breath sounds. No wheezing. Abdominal: General: Abdomen is flat. Bowel sounds are normal. There is no distension. Palpations: Abdomen is soft. There is no mass. Tenderness: There is no abdominal tenderness. There is no guarding. Musculoskeletal: General: No swelling or tenderness. Normal range of motion. Cervical back: Normal range of motion and neck supple. Right lower leg: No edema. Left lower leg: No edema. Lymphadenopathy: Cervical: No cervical adenopathy. Skin: General: Skin is warm and dry. Findings: No bruising or rash. Neurological: Mental Status: She is alert and oriented to person, place, and time. Mental status is at baseline. Motor: Weakness present. Psychiatric: Mood and Affect: Mood normal. Thought Content: Thought content normal. Right breast: no masses noted Left breast: no masses noted. No bilateral axillary or supraclavicular adenopathy is noted. Imaging/Labs: No visits with results within 1 Month(s) from this visit. Latest known visit with results is: Infusion on 09/23/2023 Component Date Value Ref Range Status Auto WBC 09/23/2023 5.5 3.6 - 10.7 10*3/uL Final RBC 09/23/2023 4.76 3.80 - 5.20 10*6/uL Final Hemoglobin 09/23/2023 14.2 11.7 - 16.0 g/dL Final Hematocrit 09/23/2023 43.9 35.0 - 47.0 % Final MCV 09/23/2023 92.2 77.0 - 99.0 fL Final MCH 09/23/2023 29.8 26.0 - 34.0 pg Final MCHC 09/23/2023 32.3 30.5 - 36.0 % Final RDW 09/23/2023 13.9 11.5 - 15.0 % Final Platelets 09/23/2023 205 140 - 440 10*3/uL Final MPV 09/23/2023 9.8 9.0 - 12.7 fL Final MPV is a calculated measurement using platelet volume ratio nRBC 09/23/2023 0.0 0.0 - 2.0 /100 WBCs Final Neutrophils Relative 09/23/2023 73.3 38.0 - 82.0 % Final Lymphocytes Relative 09/23/2023 16.8 15.0 - 45.0 % Final Monocytes Relative 09/23/2023 6.8 5.0 - 13.0 % Final Eosinophils Relative 09/23/2023 2.2 0.0 - 6.0 % Final Basophils Relative 09/23/2023 0.5 0.0 - 2.0 % Final Immature Grans % 09/23/2023 0.4 0.0 - 2.0 % Final Neutrophils Absolute 09/23/2023 4.0 1.8 - 7.5 10*3/uL Final Lymphocytes Absolute 09/23/2023 0.9 (L) 1.0 - 4.3 10*3/uL Final Monocytes Absolute 09/23/2023 0.4 0.0 - 0.9 10*3/uL Final Eosinophils Absolute 09/23/2023 0.1 0.0 - 0.5 10*3/uL Final Basophils Absolute 09/23/2023 0.0 0.0 - 0.2 10*3/uL Final Immature Grans Absolute 09/23/2023 0.0 <0.1 10*3/uL Final SODIUM - THUY 09/23/2023 140 128 - 145 mEq/L Final POTASSIUM - THUY 09/23/2023 3.8 3.6 - 5.1 mEq/L Final CHLORIDE - THUY 09/23/2023 104 98 - 108 mEq/L Final CARBON DIOXIDE - THUY 09/23/2023 27 18 - 33 mEq/L Final ANION GAP - THUY 09/23/2023 9.00 -4.00 - 12.00 mmol/L Final UREA NITROGEN - THUY 09/23/2023 19 7 - 22 mg/dL Final CREATININE - THUY 09/23/2023 0.8 0.6 - 1.2 mg/dL Final GLUCOSE - THUY 09/23/2023 133 (H) 73 - 118 mg/dL Final CALCIUM - THUY 09/23/2023 9.3 8.0 - 10.3 mg/dL Final AST(SGOT) - THUY 09/23/2023 29 11 - 38 U/L Final ALT - THUY 09/23/2023 20 10 - 47 U/L Final ALKALINE PHOSPHATASE - THUY 09/23/2023 83 42 - 141 U/L Final ALBUMIN - THUY 09/23/2023 3.4 3.3 - 5.5 g/dL Final BILIRUBIN, TOTAL - THUY 09/23/2023 0.7 0.2 - 1.6 mg/dL Final TOTAL PROTEIN - THUY 09/23/2023 6.5 6.4 - 8.1 g/dL Final EGFR - THUY 09/23/2023 76.0 >60.0 mL/min/1.73m*2 Final Imaging Reviewed: Transthoracic echocardiogram (TTE) complete with contrast, bubble, strain, and 3D PRN Left Ventricle: Left ventricle size is normal. Normal wall thickness. Normal left ventricular systolic function. EF by 2D Simpsons Biplane is 60%. Global longitudinal strain is normal with a value of -17.3%. Normal wall motion. Normal diastolic function. Normal left ventricular filling pressure. Tissue Doppler velocity is reduced. MV E/e' lateral velocity is 7.43. MV E/e' septal velocity is 8.67. Right Ventricle: Right ventricle size is normal. Normal systolic function. Aortic Valve: Mild (1+) regurgitation. Tricuspid Valve: Trace regurgitation. Pulmonic Valve: Trace regurgitation. Left Atrium: Left atrium size is normal. No significant valvular abnormalities. - I have reviewed all available pertinent laboratory, imaging and pathology results with the patient and/or family members today. Assessment/Plan: Diagnosis Plan 1. Malignant neoplasm of upper-outer quadrant of left breast in female, estrogen receptor positive (HCC) 1) stage 1A left breast cancer ER+/WV+/HER2+ pT1c pN0 cM0 s/p left partial mastectomy and SLNBx to clear margins on 02/18/23 - Today, we again reviewed the diagnosis, staging, natural history, prognosis, and treatment options for her stage 1 left breast cancer. NCCN guidelines were reviewed. Treatment intent is curative. - no evidence of disease recurrence to date - Due to declining performance status, will discontinue herceptin. - continue adjuvant endocrine therapy with Arimidex 1 mg Po dailyfor 5 years. (Started 09/02/23) Potential side effects and anticipated benefits of Arimidex were reviewed with the patient and they agreed to proceed with treatment. - will arrange follow up with Dr. Choi for mammograms at [facility] - signs and symptoms of breast cancer recurrence were reviewed and the patient was instructed to call with any concerns 2) bone health - DEXA 09/05/23 within normal limits - calcium and vitamin d supplements recommended All questions were answered to the satisfaction of the patient and/or family. Return to office in 3 months, or sooner if worrisome signs/symptoms arise. Stevie Escobedo, DO Hematology/Medical Oncology documented in this encounter [facility] 10-06-2023 Telephone encounter Note Follow up call made to pt., no answer - LMOM. Will continue to monitor and follow. Lisa Watters MPA, RDN LD CDCES [facility] 10-06-2023 Miscellaneous Notes Follow up call made to pt., no answer - LMOM. Will continue to monitor and follow. Lisa Watters MPA, RDN LD CDCES documented in this encounter [facility] 09-23-2023 History of Present illness Narrative Patient arrived for Q 3 week Trazimera infusion. Per patient family patient had unwitnessed fall this week. Patient did not have walker with her and fell,helped back to house by good sumatiatian.Patient denies injury. Encouraged patient family if noticed patient seems more of balanced or mentation worsens to reach out to PCP for possible UACNS. Patient currently denies urinary symptoms. PIV inserted in R hand, blood for CBC and CMP obtained and sen tot lab. ECHO 09-18-23= EF of 60%. Infusion complete. Vitals obtained. PIV d/c'd angio cath intact. Patient ambulatory with family prior to discharge. documented in this encounter [facility] 09-12-2023 History of Present illness Narrative RADIATION ONCOLOGY FOLLOW UP PATIENT: Madiha Perales DATE OF SERVICE: 09/12/2023 : 1945 AGE: 78 y.o. PRIMARY SITE AND HISTOPATHOLOGY: Left breast, grade 3 invasive ductal carcinoma, ER positive, WV positive, HER2 positive. STAGE: cT1b N0 M0, IA; pT1c N0 M0, IA HISTORY OF PRESENT ILLNESS: This is a 78-year-old female who was noted to have an abnormal screening mammogram of the upper outer quadrant of the left breast on 11/27/2022. The area was asymptomatic and nonpalpable. Diagnostic views and ultrasound were performed on 01/21/2023. This identified a 0.9 x 0.9 x 1 cm irregular mass in the left breast. Biopsy was performed at [facility] on 01/28/2023. This revealed grade 3 invasive ductal carcinoma measuring at least 8 mm in dimension. ER positive at 100%, WV positive at 70% and HER2 positive at 3+. The patient underwent lumpectomy and sentinel node removal on 02/18/2023. Pathology revealed grade 3 invasive ductal carcinoma measuring 1.9 cm. There was focal DCIS of high-grade. Extensive lymphovascular invasion. Margins were negative for invasive and in situ component at greater than 2 mm. 6 nodes were removed, 5 sentinel and 1 nonsentinel. All were negative. Pathologically staged T1CN0. We were consulted to discuss postoperative radiation therapy. The patient was seen by medical oncology and started weekly Taxol on 04/01/2023 for planned 12 cycles. Trazimera was started with cycle 2. Taxol was discontinued after the eighth cycle on 05/27/2023 due to symptoms. Trazimera is scheduled to continue for 1 year. Arimidex started 09/02/2023. TREATMENT PLAN: Hypofractionated daily radiation to the left breast. INTERVAL SINCE RADIATION: 1 month ? 07/14/23 - 08/01/23: 40.05/40.05 Gy to the L Breast in 15 fractions of 2.67 Gy using the 3D technique with 10 MV. ? 08/04/23 - 08/12/23: 10.00/10.00 Gy to the L Brst Surg Site in 5 fractions of 2.00 Gy using the Isodose C/Daily IGRT technique with 6 &10 MV. INTERVAL HISTORY: The patient returns with her today for follow-up. They feel that things are going well from the healing of with the radiation. They continue to moisturize in the area with aloe and coconut oil. Appetite is good. She is getting her nutrition and but her feels she is not getting enough fluids and. Energy levels okay. She rests as needed. No respiratory or cardiac complaints. No swelling in the extremities. She continues on the Trazimera. PAST MEDICAL HISTORY: Past Medical History: Diagnosis Date Allergic rhinitis Anxiety Back pain Lower back pain Breast calcifications on mammogram Dementia ([facility]) Depression Eczema H/O colonoscopy Hemorrhoid Hx of rosacea Lower extremity edema MARCY (obstructive sleep apnea) The patient wears CPAP Parkinson disease Stroke ([facility]) 2009 Torn meniscus Uterine cancer (CMS/HCC) ([facility]) 2005 PAST SURGICAL HISTORY: Past Surgical History: Procedure Laterality Date BREAST LUMPECTOMY 02/18/2023 Left breast Lumpectomy and sentinel lymph node biopsy BREAST LUMPECTOMY Left 2014 Benign left breast lumpectomy CATARACT EXTRACTION, BILATERAL 2012 Bilateral cataract surgery HYSTERECTOMY 2006 Total Hysterectomy KNEE ARTHROSCOPY Right ALLERGIES: Allergies as of 09/12/2023 - Reviewed 09/12/2023 Allergen Reaction Noted Alendronate Unknown and Other 05/07/2010 Cephalexin Unknown 05/07/2010 Dye [gadolinium] 03/06/2023 Escitalopram Other and Unknown 10/24/2022 Iodine 03/06/2023 Nickel Unknown 05/07/2010 Penicillins Unknown 05/12/2010 Pregabalin Unknown 05/07/2010 Salicylates Other and Unknown 05/07/2010 Iodinated contrast media Hives 06/14/2010 MEDICATIONS: Current Outpatient Medications Medication Sig Dispense Refill anastrozole (Arimidex) 1 MG tablet Take 1 tablet (1 mg total) by mouth daily. Swallow whole with a drink of water. 30 tablet 5 CALCIUM CARB-CHOLECALCIFEROL PO Take by mouth. carbidopa-levodopa (Sinemet) 25-100 MG tablet every 8 hours. DULoxetine (Cymbalta) [address] capsule Take 1 capsule (20 mg) by mouth once daily. loratadine (Claritin) 10 MG tablet Take 10 mg by mouth daily. memantine (Namenda) 10 MG tablet Take 10 mg by mouth daily. MULTIPLE VITAMIN PO Take 1 capsule by mouth in the morning. VITAMIN D PO Take by mouth. 2 gummies a day amoxicillin (Amoxil) 500 MG tablet Take 500 mg by mouth in the morning and 500 mg before bedtime. Unknown dose, unknown strength. dexAMETHasone (Decadron) 4 MG tablet Take 1 tablet (4 mg) by mouth in the morning and 1 tablet (4 mg) in the evening. Take with meals. Do all this for 1 day. Take 6 hours and 12 hours prior to first cycle of chemotherapy.. 2 tablet 0 loratadine (Claritin) 10 MG tablet Take by mouth daily. loratadine (Claritin) 10 MG tablet Take 1 tablet by mouth in the morning. psyllium (Metamucil) 28.3 % powder Take 3.4 g of fiber by mouth daily. No current facility-administered medications for this encounter. REVIEW OF SYSTEMS: As above. Pain score 0. KPS: 80 SUMMARY OF SIGNIFICIANT X-RAY/LABORATORY FINDINGS: Radiology as per history. Bone density test on 09/05/2023 noted normal density by report. PHYSICAL EXAM: Accompanied by . BP 138/80 Pulse 94 Temp 96.9 F (36.1 C) Resp 16 Ht 5' 4 (1.626 m) Wt 209 lb 3.2 oz (94.9 kg) SpO2 96% BMI 35.91 kg/m /Pain Score: 0 - No pain /Fatigue Assessment: Must curtail daily activities even with rest periods and earlier bedtime GENERAL: Awake, alert, oriented, no anxiety, dressed appropriately, appears of stated age. Ambulates without assistance. Speech pattern fluent. Required some help getting up onto the exam table. LUNGS: Clear to auscultation. No rales or rhonchi. HEART: Regular rate and rhythm, S1-S2 noted no murmur. NECK: Symmetric. NODES: No neck, supraclavicular, infraclavicular, or axillary adenopathy. BREAST: Left breast has postsurgery changes noted. Slightly smaller and more uplifted. There is a faint scar in the upper inner region of the left breast where she had the prior lumpectomy. Healed curvilinear scar is located in the upper outer quadrant as well as a healed scar in the left axilla. Postsurgery changes in the region. No suspicious mass in either breast. No nipple discharge. Skin in treatment area shows minimal hyperpigmented changes. Excellent cosmetic effect. MUSCULOSKELETAL: No swelling or calf tenderness bilaterally. No spine or posterior chest wall tenderness. Good range of motion in both shoulders. No gross arm edema evident. IMPRESSION: Madiha Perales is a 78 y.o. female with left breast cancer. She is healed quite well following the radiation therapy. She continues on the Trazimera for 1 year duration. We discussed backing down on the moisturizing to once a day couple days a week. They are trying to keep up with the caloric intake and staying hydrated. She is following with her other physicians. She is on the Arimidex. PLAN: Return in 6 months. Vicki Diego MD [facility] Department of Radiation Oncology is an Accredited Facility of the [employer] ([employer]). This document was completed utilizing speech recognition software. Grammatical errors, random word insertions, pronoun errors, and incomplete sentences are an occasional consequence of this system due to software limitations, ambient noise, and hardware issues. Any formal questions or concerns about the content, text or information contained within the body of this dictation should be directly addressed to the provider for clarification. documented in this encounter [facility] 09-12-2023 Nurse Note Here with using walker for follow up.Appetite good states she just doesn't drink enough water. Energy normal for her rests frequently. States skin is doing well and continues to moisturize with aloe and coconut oil. Recent bone density test done. Has echo coming up and continues on Trazimera every 3 weeks. [facility] 09-12-2023 Nurse Note Here with using walker for follow up.Appetite good states she just doesn't drink enough water. Energy normal for her rests frequently. States skin is doing well and continues to moisturize with aloe and coconut oil. Recent bone density test done. Has echo coming up and continues on Trazimera every 3 weeks. documented in this encounter [facility] 09-02-2023 History of Present illness Narrative Patient arrived for Q 3 week Trazimera from OV with physician. PIV inserted on 3rd attempt , first attempt by second RN, blood for CBC and CMP obtained and sent to lab. ECHO from 06-26-23 shows EF of 62%, next ECHO scheduled for this month. Patient had recent fall, hitting head, denies LOC. Patient is ambulatory with Rolator today however cognition issues cause her to forget it sometimes.Patient also has decreased PO water intake. Tips on adequate hydration provided to adult daughter. CBC, and CMP reviewed. Patient to start Arimidex today, DEXA scan ordered and being entered. Infusion complete. Vitals obtained. PIV d/c'd angio cath intact. Patient ambulatory upon discharge. documented in this encounter [facility] 09-02-2023 History of Present illness Narrative Patient arrived for Q 3 week Trazimera from with physician. PIV inserted on 3rd attempt , first attempt by second RN, blood for CBC and CMP obtained and sent to lab. ECHO from 06-26-23 shows EF of 62%, next ECHO scheduled for this month. Patient had recent fall, hitting head, denies LOC. Patient is ambulatory with Rolator today however cognition issues cause her to forget it sometimes.Patient also has decreased PO water intake. Tips on adequate hydration provided to adult daughter. CBC, and CMP reviewed. Patient to start Arimidex today, DEXA scan ordered and being entered. Infusion complete. Vitals obtained. PIV d/c'd angio cath intact. Patient ambulatory upon discharge. documented in this encounter [facility] 09-02-2023 History of Present illness Narrative Hematology/Oncology Office Visit Oncology History: 1) stage 1A left breast cancer, invasive ductal carcinoma grade 3. ER+ WV+ HER2+. cT1b N0 M0; pT1c N0 M0, diagnosed 01/28/23. - Patient is a 78 yo F who presented with an abnormal screening mammogram of the upper outer quadrant of the left breast on 11/27/22. Diagnostic imaging and ultrasound were performed on 01/21/2023: a 0.9 x 0.9 x 1 cm irregular mass in the left breast. Biopsy was performed at [facility] on 01/28/2023 confirming grade 3 invasive ductal carcinoma ER positive 100%, WV positive 70% and HER2 positive at 3+. The patient underwent lumpectomy and sentinel node removal on 02/18/[address] Choi at [facility]: pathology revealed grade 3 invasive ductal carcinoma measuring 1.9 cm. There was focal DCIS and extensive lymphovascular invasion. Margins were negative for invasive and in situ component at greater than 2 mm. 6 axillary nodes were removed: 5 sentinel and 1 nonsentinel. All were negative. Pathologically staged T1CN0. - she was referred to [facility] for medical and radiation oncology. Her case was reviewed at our tumor board and adjuvant chemotherapy, radiation, and AI therapy were recommended. She started weekly taxol and herceptin on 04/01/23. She required a 25% reduction in Taxol for cycle 3 due to neutropenia. She completed 8 of the 12 planned cycles of weekly Taxol, but the Taxol was stopped early due to poor tolerance. Herceptin every 3 weeks continued. - radiation started 07/14/23 and she completed it 08/12/23 - Arimidex started 09/02/23 HPI: Madiha Perales is a 78 y.o. female who comes in today for her next cycle of Herceptin and to start Arimidex. She continues to tolerate Herceptin well overall. She tolerated radiation therapy well. She is accompanied by her daughter today. No chest pain or shortness of breath. No falls at home. PO intake improved. No fevers or chills. No swelling. No headaches. Recall, patient has Parkinson's and had a stroke a few years ago, but is generally doing well at home. She is active the majority of the day and continues to take care of the house. She does have some mild expressive aphasia as well as short term memory loss. Past Medical History: Diagnosis Date Allergic rhinitis Anxiety Back pain Lower back pain Breast calcifications on mammogram Dementia (HCC) Depression Eczema H/O colonoscopy Hemorrhoid Hx of rosacea Lower extremity edema MARCY (obstructive sleep apnea) The patient wears CPAP Parkinson disease Stroke (HCC) 2009 Torn meniscus Uterine cancer (CMS/HCC) (HCC) 2005 Past Surgical History: Procedure Laterality Date BREAST LUMPECTOMY 02/18/2023 Left breast Lumpectomy and sentinel lymph node biopsy BREAST LUMPECTOMY Left 2013 Benign left breast lumpectomy CATARACT EXTRACTION, BILATERAL 2012 Bilateral cataract surgery HYSTERECTOMY 2006 Total Hysterectomy KNEE ARTHROSCOPY Right Patient Active Problem List Diagnosis Date Noted Memory loss 03/18/2023 Pigmented skin lesion suspicious for malignant neoplasm 03/18/2023 Malignant neoplasm of upper-outer quadrant of left breast in female, estrogen receptor positive (HCC) ([facility]) 03/18/2023 Edema of both lower extremities 02/05/2023 Parkinsonism 02/05/2023 Allergic reaction to bee sting 10/29/2022 Allergic rhinitis 10/29/2022 Eczema 10/29/2022 Eczema 10/29/2022 Elevated TSH 10/29/2022 External hemorrhoids 10/29/2022 Hair loss 10/29/2022 Low back pain 10/29/2022 Menopausal state 10/29/2022 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[facility]) 10/29/2022 Mixed anxiety depressive disorder 10/29/2022 Obesity (BMI 30.0-34.9) 10/29/2022 Obstructive sleep apnea syndrome 10/29/2022 Falling 10/29/2022 Seborrheic keratosis 10/29/2022 Rosacea, acne 10/15/2022 Hemangioma of skin and subcutaneous tissue 04/24/2016 Breast calcifications on mammogram 07/24/2013 Cerebrovascular accident (CVA) ([facility]) 06/23/2009 Social History Tobacco Use Smoking status: Never Smokeless tobacco: Never Vaping Use Vaping Use: Never used Substance Use Topics Alcohol use: Not Currently Drug use: Never Family History Problem Relation Name Age of Onset Breast cancer Mother Lung cancer Father Colon cancer Paternal Grandfather Allergies Allergen Reactions Alendronate Unknown and Other Cephalexin Unknown Dye [Gadolinium] Escitalopram Other and Unknown Iodine Other reaction(s): Hives and/or rash Nickel Unknown Penicillins Unknown Other reaction(s): Intolerance-unknown Patient had multiple doses of IV Zosyn in May 2023 and tolerated without issue Pregabalin Unknown Salicylates Other and Unknown D/t HX of CVA Iodinated Contrast Media Hives Hives x 5 locations, redness of right eye. Current Outpatient Medications Medication Sig Dispense Refill loratadine (Claritin) 10 MG tablet Take by mouth daily. loratadine (Claritin) 10 MG tablet Take 1 tablet by mouth in the morning. amoxicillin (Amoxil) 500 MG tablet Take 500 mg by mouth in the morning and 500 mg before bedtime. Unknown dose, unknown strength. anastrozole (Arimidex) 1 MG tablet Take 1 tablet (1 mg total) by mouth daily. Swallow whole with a drink of water. 30 tablet 5 CALCIUM CARB-CHOLECALCIFEROL PO Take by mouth. carbidopa-levodopa (Sinemet) 25-100 MG tablet every 8 hours. dexAMETHasone (Decadron) 4 MG tablet Take 1 tablet (4 mg) by mouth in the morning and 1 tablet (4 mg) in the evening. Take with meals. Do all this for 1 day. Take 6 hours and 12 hours prior to first cycle of chemotherapy.. 2 tablet 0 DULoxetine (Cymbalta) [address] capsule Take 1 capsule (20 mg) by mouth once daily. loratadine (Claritin) 10 MG tablet Take 10 mg by mouth daily. memantine (Namenda) 10 MG tablet Take 10 mg by mouth daily. MULTIPLE VITAMIN PO Take 1 capsule by mouth in the morning. psyllium (Metamucil) 28.3 % powder Take 3.4 g of fiber by mouth daily. VITAMIN D PO Take by mouth. 2 gummies a day No current facility-administered medications for this visit. Review of Systems Constitutional: Positive for fatigue. Negative for appetite change, chills, diaphoresis, fever and unexpected weight change. HENT: Negative for dental problem, mouth sores, nosebleeds, sneezing, sore throat, tinnitus, trouble swallowing and voice change. Eyes: Negative for photophobia, pain and visual disturbance. Respiratory: Negative for cough, shortness of breath and wheezing. Cardiovascular: Negative for chest pain, palpitations and leg swelling. Gastrointestinal: Negative for abdominal distention, abdominal pain, blood in stool, constipation, diarrhea, nausea and vomiting. Endocrine: Negative for cold intolerance and heat intolerance. Genitourinary: Negative for difficulty urinating, frequency, hematuria and urgency. Musculoskeletal: Negative for arthralgias, back pain, gait problem and myalgias. Skin: Negative for pallor and rash. Allergic/Immunologic: Negative for immunocompromised state. Neurological: Positive for speech difficulty and weakness. Negative for dizziness, syncope, light-headedness, numbness and headaches. Hematological: Negative for adenopathy. Does not bruise/bleed easily. Psychiatric/Behavioral: Negative for confusion and sleep disturbance. The patient is not nervous/anxious. All other systems reviewed and are negative. Vitals: 09/02/23 0851 BP: 125/71 BP Location: Left arm Patient Position: Sitting Pulse: 89 Temp: 36.6 C (97.8 F) TempSrc: Temporal SpO2: 91% Weight: 94.2 kg (207 lb 11.2 oz) Height: 1.651 m (5' 5) ECOG PS = 2 Physical Exam Vitals and nursing note reviewed. Constitutional: General: She is not in acute distress. Appearance: Normal appearance. She is not ill-appearing. HENT: Head: Normocephalic and atraumatic. Nose: Nose normal. Mouth/Throat: Pharynx: Oropharynx is clear. No oropharyngeal exudate or posterior oropharyngeal erythema. Eyes: General: No scleral icterus. Extraocular Movements: Extraocular movements intact. Conjunctiva/sclera: Conjunctivae normal. Pupils: Pupils are equal, round, and reactive to light. Cardiovascular: Rate and Rhythm: Normal rate and regular rhythm. Heart sounds: Normal heart sounds. No murmur heard. Pulmonary: Effort: Pulmonary effort is normal. No respiratory distress. Breath sounds: Normal breath sounds. No wheezing. Abdominal: General: Abdomen is flat. Bowel sounds are normal. There is no distension. Palpations: Abdomen is soft. There is no mass. Tenderness: There is no abdominal tenderness. There is no guarding. Musculoskeletal: General: No swelling or tenderness. Normal range of motion. Cervical back: Normal range of motion and neck supple. Right lower leg: No edema. Left lower leg: No edema. Lymphadenopathy: Cervical: No cervical adenopathy. Skin: General: Skin is warm and dry. Findings: No bruising or rash. Neurological: Mental Status: She is alert and oriented to person, place, and time. Mental status is at baseline. Motor: Weakness present. Psychiatric: Mood and Affect: Mood normal. Thought Content: Thought content normal. Right breast: no masses noted Left breast: no masses noted. Mild radiation dermatitis No bilateral axillary or supraclavicular adenopathy is noted. Imaging/Labs: Hospital Outpatient Visit on 08/12/2023 Component Date Value Ref Range Status Treatment Site 08/12/2023 L Brst Surg Site Final Course Number 08/12/2023 1 Final Prescribed Fractional Dose 08/12/2023 2.00 Gy Final Prescribed Total Dose 08/12/2023 10.00 Gy Final Actual Fractions Delivered 08/12/2023 5 Final Prescription Pattern Comment 08/12/2023 4 beams; noncoplanar; IDL-97% Final Actual Session Delivered Dose 08/12/2023 2.00 Gy Final Actual Total Dose 08/12/2023 10.00 Gy Final Prescribed Technique 08/12/2023 Isodose C/Daily IGRT Final Elapsed Days 08/12/2023 8 Final Start Date 08/12/2023 08/04/2023 Final Last Date 08/12/2023 08/12/2023 Final Prescribed Number of Fractions 08/12/2023 5 Final Treatment Site 08/12/2023 L Brst Surg Site Final Course Number 08/12/2023 1 Final Prescribed Fractional Dose 08/12/2023 2.00 Gy Final Prescribed Total Dose 08/12/2023 10.00 Gy Final Actual Fractions Delivered 08/12/2023 5 Final Prescription Pattern Comment 08/12/2023 4 beams; noncoplanar; IDL-97% Final Actual Session Delivered Dose 08/12/2023 2.00 Gy Final Actual Total Dose 08/12/2023 10.00 Gy Final Prescribed Technique 08/12/2023 Isodose C/Daily IGRT Final Elapsed Days 08/12/2023 8 Final Start Date 08/12/2023 08/04/2023 Final Last Date 08/12/2023 08/12/2023 Final Prescribed Number of Fractions 08/12/2023 5 Final Lab Requisition on 08/12/2023 Component Date Value Ref Range Status SODIUM, WHOLE BLOOD 08/12/2023 140 133 - 145 mEq/L Final POTASSIUM, WHOLE BLOOD 08/12/2023 4.5 3.4 - 5.1 mEq/L Final CHLORIDE, WHOLE BLOOD 08/12/2023 108 98 - 114 mEq/L Final CARBON DIOXIDE, WHOLE BLOOD 08/12/2023 28 21 - 29 mEq/L Final ANION GAP, WHOLE BLOOD 08/12/2023 4.00 3.00 - 13.00 mmol/L Final GLUCOSE, WHOLE BLOOD 08/12/2023 128 (H) 67 - 100 mg/dL Final UREA NITROGEN, WHOLE BLOOD 08/12/2023 17 4 - 22 mg/dL Final CREATININE, WHOLE BLOOD 08/12/2023 0.7 0.6 - 1.4 mg/dL Final EGFR, WHOLE BLOOD 08/12/2023 89.2 >60.0 mL/min/1.73m*2 Final Calculation based on the Chronic Kidney Disease Epidemiology Collaboration (CKD-EPI) equation refit without adjustment for race CALCIUM, WHOLE BLOOD 08/12/2023 9.0 8.1 - 10.1 mg/dL Final TOTAL PROTEIN, WHOLE BLOOD 08/12/2023 6.5 6.0 - 8.1 g/dL Final ALBUMIN, WHOLE BLOOD 08/12/2023 3.3 3.3 - 5.1 g/dL Final BILIRUBIN, TOTAL, WHOLE BLOOD 08/12/2023 0.6 0.0 - 1.3 mg/dL Final ALKALINE PHOSPHATASE, WHOLE BLOOD 08/12/2023 77 28 - 108 IU/L Final ALT (SGPT), WHOLE BLOOD 08/12/2023 29 14 - 54 IU/L Final AST (SGOT), WHOLE BLOOD 08/12/2023 38 15 - 41 IU/L Final Infusion on 08/12/2023 Component Date Value Ref Range Status Auto WBC 08/12/2023 6.7 3.6 - 10.7 10*3/uL Final RBC 08/12/2023 4.43 3.8 - 5.20 10*6/uL Final Hemoglobin 08/12/2023 13.6 11.7 - 16.0 g/dL Final Hematocrit 08/12/2023 41.2 35.0 - 47.0 % Final MCV 08/12/2023 93.0 80.0 - 98.0 fL Final MCH 08/12/2023 30.7 26.0 - 34.0 pg Final MCHC 08/12/2023 33.0 32.0 - 36.0 % Final RDW 08/12/2023 14.0 11.5 - 14.5 % Final Platelets 08/12/2023 224 140 - 440 10*3/uL Final MPV 08/12/2023 9.9 7.4 - 12.4 fL Final MPV is a calculated measurement using platelet volume ratio Neutrophils Relative 08/12/2023 77.6 40.0 - 80.0 % Final Lymphocytes Relative 08/12/2023 12.6 (L) 20.0 - 40.0 % Final Monocytes Relative 08/12/2023 6.7 2.0 - 10.0 % Final Eosinophils Relative 08/12/2023 2.1 1.0 - 6.0 % Final Basophils Relative 08/12/2023 0.4 0.0 - 2.0 % Final Immature Grans % 08/12/2023 0.6 (H) <=0.0 % Final Neutrophils Absolute 08/12/2023 5.2 1.8 - 7.0 10*3/uL Final Lymphocytes Absolute 08/12/2023 0.9 (L) 1.0 - 4.3 10*3/uL Final Monocytes Absolute 08/12/2023 0.5 0.0 - 0.8 10*3/uL Final Eosinophils Absolute 08/12/2023 0.1 0.0 - 0.5 10*3/uL Final Basophils Absolute 08/12/2023 0.0 0.0 - 0.2 10*3/uL Final Immature Grans Absolute 08/12/2023 0.0 <=0.0 10*3/uL Final Hospital Outpatient Visit on 08/11/2023 Component Date Value Ref Range Status Treatment Site 08/11/2023 L Brst Surg Site Final Course Number 08/11/2023 1 Final Prescribed Fractional Dose 08/11/2023 2.00 Gy Final Prescribed Total Dose 08/11/2023 10.00 Gy Final Actual Fractions Delivered 08/11/2023 4 Final Prescription Pattern Comment 08/11/2023 4 beams; noncoplanar; IDL-97% Final Actual Session Delivered Dose 08/11/2023 2.00 Gy Final Actual Total Dose 08/11/2023 8.00 Gy Final Prescribed Technique 08/11/2023 Isodose C/Daily IGRT Final Elapsed Days 08/11/2023 7 Final Start Date 08/11/2023 08/04/2023 Final Last Date 08/11/2023 08/11/2023 Final Prescribed Number of Fractions 08/11/2023 5 Final Treatment Site 08/11/2023 L Brst Surg Site Final Course Number 08/11/2023 1 Final Prescribed Fractional Dose 08/11/2023 2.00 Gy Final Prescribed Total Dose 08/11/2023 10.00 Gy Final Actual Fractions Delivered 08/11/2023 4 Final Prescription Pattern Comment 08/11/2023 4 beams; noncoplanar; IDL-97% Final Actual Session Delivered Dose 08/11/2023 2.00 Gy Final Actual Total Dose 08/11/2023 8.00 Gy Final Prescribed Technique 08/11/2023 Isodose C/Daily IGRT Final Elapsed Days 08/11/2023 7 Final Start Date 08/11/2023 08/04/2023 Final Last Date 08/11/2023 08/11/2023 Final Prescribed Number of Fractions 08/11/2023 5 Final Hospital Outpatient Visit on 08/07/2023 Component Date Value Ref Range Status Treatment Site 08/07/2023 L Brst Surg Site Final Course Number 08/07/2023 1 Final Prescribed Fractional Dose 08/07/2023 2.00 Gy Final Prescribed Total Dose 08/07/2023 10.00 Gy Final Actual Fractions Delivered 08/07/2023 3 Final Prescription Pattern Comment 08/07/2023 4 beams; noncoplanar; IDL-97% Final Actual Session Delivered Dose 08/07/2023 2.00 Gy Final Actual Total Dose 08/07/2023 6.00 Gy Final Prescribed Technique 08/07/2023 Isodose C/Daily IGRT Final Elapsed Days 08/07/2023 3 Final Start Date 08/07/2023 08/04/2023 Final Last Date 08/07/2023 08/07/2023 Final Prescribed Number of Fractions 08/07/2023 5 Final Treatment Site 08/07/2023 L Brst Surg Site Final Course Number 08/07/2023 1 Final Prescribed Fractional Dose 08/07/2023 2.00 Gy Final Prescribed Total Dose 08/07/2023 10.00 Gy Final Actual Fractions Delivered 08/07/2023 3 Final Prescription Pattern Comment 08/07/2023 4 beams; noncoplanar; IDL-97% Final Actual Session Delivered Dose 08/07/2023 2.00 Gy Final Actual Total Dose 08/07/2023 6.00 Gy Final Prescribed Technique 08/07/2023 Isodose C/Daily IGRT Final Elapsed Days 08/07/2023 3 Final Start Date 08/07/2023 08/04/2023 Final Last Date 08/07/2023 08/07/2023 Final Prescribed Number of Fractions 08/07/2023 5 Final Hospital Outpatient Visit on 08/06/2023 Component Date Value Ref Range Status Treatment Site 08/06/2023 L Brst Surg Site Final Course Number 08/06/2023 1 Final Prescribed Fractional Dose 08/06/2023 2.00 Gy Final Prescribed Total Dose 08/06/2023 10.00 Gy Final Actual Fractions Delivered 08/06/2023 2 Final Prescription Pattern Comment 08/06/2023 4 beams; noncoplanar; IDL-97% Final Actual Session Delivered Dose 08/06/2023 2.00 Gy Final Actual Total Dose 08/06/2023 4.00 Gy Final Prescribed Technique 08/06/2023 Isodose C/Daily IGRT Final Elapsed Days 08/06/2023 2 Final Start Date 08/06/2023 08/04/2023 Final Last Date 08/06/2023 08/06/2023 Final Prescribed Number of Fractions 08/06/2023 5 Final Treatment Site 08/06/2023 L Brst Surg Site Final Course Number 08/06/2023 1 Final Prescribed Fractional Dose 08/06/2023 2.00 Gy Final Prescribed Total Dose 08/06/2023 10.00 Gy Final Actual Fractions Delivered 08/06/2023 2 Final Prescription Pattern Comment 08/06/2023 4 beams; noncoplanar; IDL-97% Final Actual Session Delivered Dose 08/06/2023 2.00 Gy Final Actual Total Dose 08/06/2023 4.00 Gy Final Prescribed Technique 08/06/2023 Isodose C/Daily IGRT Final Elapsed Days 08/06/2023 2 Final Start Date 08/06/2023 08/04/2023 Final Last Date 08/06/2023 08/06/2023 Final Prescribed Number of Fractions 08/06/2023 5 Final Lab Requisition on 08/05/2023 Component Date Value Ref Range Status SODIUM, WHOLE BLOOD 08/05/2023 138 133 - 145 mEq/L Final POTASSIUM, WHOLE BLOOD 08/05/2023 4.4 3.4 - 5.1 mEq/L Final CHLORIDE, WHOLE BLOOD 08/05/2023 105 98 - 114 mEq/L Final CARBON DIOXIDE, WHOLE BLOOD 08/05/2023 28 21 - 29 mEq/L Final ANION GAP, WHOLE BLOOD 08/05/2023 5.00 3.00 - 13.00 mmol/L Final GLUCOSE, WHOLE BLOOD 08/05/2023 148 (H) 67 - 100 mg/dL Final UREA NITROGEN, WHOLE BLOOD 08/05/2023 14 4 - 22 mg/dL Final CREATININE, WHOLE BLOOD 08/05/2023 0.7 0.6 - 1.4 mg/dL Final EGFR, WHOLE BLOOD 08/05/2023 89.2 >60.0 mL/min/1.73m*2 Final Calculation based on the Chronic Kidney Disease Epidemiology Collaboration (CKD-EPI) equation refit without adjustment for race CALCIUM, WHOLE BLOOD 08/05/2023 9.4 8.1 - 10.1 mg/dL Final TOTAL PROTEIN, WHOLE BLOOD 08/05/2023 6.9 6.0 - 8.1 g/dL Final ALBUMIN, WHOLE BLOOD 08/05/2023 3.6 3.3 - 5.1 g/dL Final BILIRUBIN, TOTAL, WHOLE BLOOD 08/05/2023 0.6 0.0 - 1.3 mg/dL Final ALKALINE PHOSPHATASE, WHOLE BLOOD 08/05/2023 74 28 - 108 IU/L Final ALT (SGPT), WHOLE BLOOD 08/05/2023 <15 14 - 54 IU/L Final AST (SGOT), WHOLE BLOOD 08/05/2023 44 (H) 15 - 41 IU/L Final Infusion on 08/05/2023 Component Date Value Ref Range Status Auto WBC 08/05/2023 6.5 3.6 - 10.7 10*3/uL Final RBC 08/05/2023 4.47 3.8 - 5.20 10*6/uL Final Hemoglobin 08/05/2023 14.0 11.7 - 16.0 g/dL Final Hematocrit 08/05/2023 41.6 35.0 - 47.0 % Final MCV 08/05/2023 93.1 80.0 - 98.0 fL Final MCH 08/05/2023 31.3 26.0 - 34.0 pg Final MCHC 08/05/2023 33.7 32.0 - 36.0 % Final RDW 08/05/2023 14.3 11.5 - 14.5 % Final Platelets 08/05/2023 205 140 - 440 10*3/uL Final MPV 08/05/2023 9.3 7.4 - 12.4 fL Final MPV is a calculated measurement using platelet volume ratio Neutrophils Relative 08/05/2023 74.6 40.0 - 80.0 % Final Lymphocytes Relative 08/05/2023 12.3 (L) 20.0 - 40.0 % Final Monocytes Relative 08/05/2023 8.3 2.0 - 10.0 % Final Eosinophils Relative 08/05/2023 3.7 1.0 - 6.0 % Final Basophils Relative 08/05/2023 0.8 0.0 - 2.0 % Final Immature Grans % 08/05/2023 0.3 (H) <=0.0 % Final Neutrophils Absolute 08/05/2023 4.9 1.8 - 7.0 10*3/uL Final Lymphocytes Absolute 08/05/2023 0.8 (L) 1.0 - 4.3 10*3/uL Final Monocytes Absolute 08/05/2023 0.5 0.0 - 0.8 10*3/uL Final Eosinophils Absolute 08/05/2023 0.2 0.0 - 0.5 10*3/uL Final Basophils Absolute 08/05/2023 0.1 0.0 - 0.2 10*3/uL Final Immature Grans Absolute 08/05/2023 0.0 <=0.0 10*3/uL Final Imaging Reviewed: CT Sim WO Narrative: Patient Name: MADIHA PERALES : 1945 [facility]#: [id number] Exam Date/Time: 07/03/2023 11:37 Procedure: CT SIMULATION WO CONTRAST - RADIATION ONCOLOGY Ordering Provider: DIEGO DESIREE Reason For Exam: BREAST CARCINOMA CT simulation therapy /CT chest INDICATION: Breast carcinoma. Technique: Large [id number] 3 mm axial sections were obtained through the chest without IV contrast administration. Images were performed primarily for radiation planning therapy purposes. Images are suboptimal for diagnostic interpretation. Dose reduction was employed with automated exposure control. FINDINGS: 3.7 x 3.9 cm hypodense fluid collection within the left lateral breast tissues, likely due to seroma following breast mass resection. Enlarged left thyroid gland with 3 x 3 cm left thyroid hypodensity. Minimal right basilar atelectasis is identified. 4 mm right middle lobe pulmonary nodule (series 2, image 69). No pleural effusion is seen. No mediastinal or hilar adenopathy. Scant coronary artery calcifications are identified. The cardiac chambers are not enlarged. Small sliding hiatal hernia. Images through the upper abdomen show are unremarkable. Minimal thoracic degenerative spondylosis. No osseous lesions. Impression: 1. Status post left breast mass resection with residual fluid collection as detailed above. 2. 4 mm right middle lobe pulmonary nodule. There are no prior exams for comparison. 3. Right basilar atelectasis. Small sliding hiatal hernia. Report Dictated on Electronically Signed By: Marie Landeros DO Electronically Signed Date/Time: 07/06/2023 9:40 AM EST - I have reviewed all available pertinent laboratory, imaging and pathology results with the patient and/or family members today. Assessment/Plan: Diagnosis Plan 1. Malignant neoplasm of upper-outer quadrant of left breast in female, estrogen receptor positive (HCC) (HCC) anastrozole (Arimidex) 1 MG tablet DEXA bone density axial skeleton 2. Encounter for monitoring cardiotoxic drug therapy 1) stage 1A left breast cancer ER+/WV+/HER2+ pT1c pN0 cM0 s/p left partial mastectomy and SLNBx to clear margins on 02/18/23 - Today, we again reviewed the diagnosis, staging, natural history, prognosis, and treatment options for her stage 1 left breast cancer. NCCN guidelines were reviewed. Treatment intent is curative. - will proceed with Trastuzumab every 3 weeks to complete 1 year of treatment (until approximately March 2024). See chemo orders. Potential side effects and anticipated benefits of Trastuzumab were reviewed with the patient and they agreed to proceed with treatment. - After radiation therapy is completed, adjuvant endocrine therapy with an AI for 5 years will be recommended. Arimidex 1 mg Po daily is recommended. Potential side effects and anticipated benefits of Arimidex were reviewed with the patient and they agreed to proceed with treatment. - echo prior to treatment on 03/26/23 with EF 63%. Most recent echo 06/26/23 with EF 62%. Monitor every 3 months - supportive care. See lab orders with chemotherapy. 2) bone health - check DEXA scan - calcium and vitamin d supplements recommended All questions were answered to the satisfaction of the patient and/or family. Return to office in 6 weeks for Trastuzumab, or sooner if worrisome signs/symptoms arise. Stevie Escobedo, Hematology/Medical Oncology documented in this encounter [facility] 08-12-2023 History of Present illness Narrative Patient arrived for delayed cycle 4 Q 3 week Trazimera. Patient still has cough on ATB. Reports feels well. Encouraged to call PCP to follow up with cough. PIV inserted, blood for CBC and CMP obtained. Infusion complete. PIV d/c'd angio cath intact. Patient ambulatory upon discharge. documented in this encounter [facility] 08-12-2023 History of Present illness Narrative Patient arrived for delayed cycle 4 Q 3 week Trazimera. Patient still has cough on ATB. Reports feels well. Encouraged to call PCP to follow up with cough. PIV inserted, blood for CBC and CMP obtained. Infusion complete. PIV d/c'd angio cath intact. Patient ambulatory upon discharge. documented in this encounter [facility] 08-05-2023 History of Present illness Narrative Patient arrived with family for Q 3 week Trazimera. Patient requesting IV hydration as well today for patient. Vitals obtained. PIV inserted in RFA, blood for CBC and CMP obtained. ECHO from 03-31-23 shows EF of 62%. Per patient family, patient has chest cold and congestion starting 5 days ago. It is moist sounding however patient not coughing up mucus. Requesting PRN IV hydration today.Lungs auscultated, RLL diminished. CBC and CMP reviewed.Dr. Escobedo made aware of patient respiratory issues. New order received to delay treatment x 1 week. Patient to see PCP today. Hydration complete. Vitals obtained. PIV d/c'd. Patient ambulatory upon discharge. Family to update office after seen by PCP. documented in this encounter [facility] 07-30-2023 History of Present illness Narrative Subjective Patient ID: Madiha Perales is a 78 y.o. female who presents for Medicare Annual Wellness Visit Subsequent (Pt presents for annual MWV- ABN was given to pt and signed, pt verbalized understanding. Pt would like to have her thyroid blood work checked. Pt has some dark moles with a dark scaly top on her back that she would like you to take a look at. ). HPI Mrs. Perales was seen today, and daughter present, for a routine follow-up of her medications. Medication(s) are being taken and tolerated as prescribed, without concerns, list reconciled today. There are no complaints of chest pain, shortness of breath, lower extremity edema, or exertional concerns. Her biggest ongoing issue is that of her breast cancer treatment, she is currently undergoing radiation as well as chemotherapy. Energy is down some, appetite reasonable. She is stable on her current regimen of Sinemet, has not fallen, walks with a rollator walker. Vaccines are up-to-date with the exception of Tdap. Colon cancer screening is not indicated at present. Depression and anxiety symptoms are reasonably well-controlled on duloxetine. Labs from oncology reviewed, all stable. Short-term memory continues to be an issue, she does tolerate Namenda. Review of Systems The full review of systems is negative with the exception of what is noted in HPI Objective BP 108/72 (BP Location: Right arm, Patient Position: Sitting, BP Cuff Size: Large adult) Pulse 86 Temp 36.4 C (97.5 F) (Temporal) Ht 1.651 m (5' 5) Wt 93.8 kg (206 lb 12.8 oz) SpO2 94% BMI 34.41 kg/m Physical Exam Constitutional/General appearance: alert, oriented, well-appearing, in no distress Head and face exam is normal No scleral icterus or conjunctival erythema present Hearing is grossly normal Respiratory effort is normal, no dyspnea noted Cortical function is normal Mood, affect, are pleasant, appropriate, and interactive. Insight is normal Cardiac exam reveals a regular rate and rhythm, lungs are clear, bilateral lower extremity edema present, trace on the left, 1+ on the right. Varicosities present. Bilateral dorsalis pedis pulses are normal, toes are warm, capillary refill normal. Assessment/Plan Breast cancer treatment ongoing, including radiation and chemotherapy. She is status post mastectomies. Continue to focus on hydration and a healthy diet. Continue duloxetine for history of anxiety and mild depression. Labs are up-to-date Medicare gaps reviewed, recommend Tdap at a local pharmacy. Consider checking early next year. Follow-up 4months Portions of this medical record have been created using voice recognition software and may have minor errors which are inherent in voice recognition systems. It has not been fully edited for typographical or grammatical errorspending documented in this encounter [facility] Work Phone: 07-29-2023 Telephone encounter Note ECHO for August pended to be signed [facility] 07-29-2023 Miscellaneous Notes ECHO for August pended to be signed documented in this encounter [facility] 07-15-2023 History of Present illness Narrative Patient arrived for cycle 2 of Q3 week Trazimera infusion. Patient denies any new concerns or symptoms. PIV inserted in RFA, blood for CBC and CMP obtained and sent to lab.ECHO from 06-26-23 shows EF of 62%. Patient and family escorted to private room for OV with physician. Patient and family returned to infusion suite. Patient tolerated 30 min infusion well. Vitals obtained. PIV d/c'd angio cath intact. Gauze and coban applied to site. Patient stable with rolator assist to exit. documented in this encounter [facility] 07-15-2023 History of Present illness Narrative Patient arrived for cycle 2 of Q3 week Trazimera infusion. Patient denies any new concerns or symptoms. PIV inserted in RFA, blood for CBC and CMP obtained and sent to lab.ECHO from 06-26-23 shows EF of 62%. Patient and family escorted to private room for OV with physician. Patient and family returned to infusion suite. Patient tolerated 30 min infusion well. Vitals obtained. PIV d/c'd angio cath intact. Gauze and coban applied to site. Patient stable with rolator assist to exit. documented in this encounter [facility] 07-15-2023 History of Present illness Narrative Hematology/Oncology Office Visit Oncology History: 1) stage 1A left breast cancer, invasive ductal carcinoma grade 3. ER+ WV+ HER2+. cT1b N0 M0; pT1c N0 M0, diagnosed 01/28/23. - Patient is a 78 yo F who presented with an abnormal screening mammogram of the upper outer quadrant of the left breast on 11/27/22. Diagnostic imaging and ultrasound were performed on 01/21/2023: a 0.9 x 0.9 x 1 cm irregular mass in the left breast. Biopsy was performed at [facility] on 01/28/2023 confirming grade 3 invasive ductal carcinoma ER positive 100%, WV positive 70% and HER2 positive at 3+. The patient underwent lumpectomy and sentinel node removal on 02/18/[address] Choi at [facility]: pathology revealed grade 3 invasive ductal carcinoma measuring 1.9 cm. There was focal DCIS and extensive lymphovascular invasion. Margins were negative for invasive and in situ component at greater than 2 mm. 6 axillary nodes were removed: 5 sentinel and 1 nonsentinel. All were negative. Pathologically staged T1CN0. - she was referred to [facility] for medical and radiation oncology. Her case was reviewed at our tumor board and adjuvant chemotherapy, radiation, and AI therapy were recommended. She started weekly taxol and herceptin on 04/01/23. She required a 25% reduction in Taxol for cycle 3 due to neutropenia. She completed 8 of the 12 planned cycles of weekly Taxol, but the Taxol was stopped early due to poor tolerance. Herceptin every 3 weeks continued. - radiation started 07/14/23 HPI: Madiha Perales is a 78 y.o. female who comes in today for her next cycle of Herceptin. She continues to tolerate Herceptin well overall. She started radiation yesterday. She is accompanied by her daughter and today. No chest pain or shortness of breath. No falls at home. PO intake improved. No fevers or chills. No swelling. No headaches. Recall, patient has Parkinson's and had a stroke a few years ago, but is generally doing well at home. She is active the majority of the day and continues to take care of the house. She does have some mild expressive aphasia as well as short term memory loss. Past Medical History: Diagnosis Date Allergic rhinitis Anxiety Back pain Lower back pain Breast calcifications on mammogram Dementia ([facility]) Depression Eczema H/O colonoscopy Hemorrhoid Hx of rosacea Lower extremity edema MARCY (obstructive sleep apnea) The patient wears CPAP Parkinson disease Stroke ([facility]) 2009 Torn meniscus Uterine cancer ([facility]) ([facility]) 2005 Past Surgical History: Procedure Laterality Date BREAST LUMPECTOMY 02/18/2023 Left breast Lumpectomy and sentinel lymph node biopsy BREAST LUMPECTOMY Left 2014 Benign left breast lumpectomy CATARACT EXTRACTION, BILATERAL 2012 Bilateral cataract surgery HYSTERECTOMY 2006 Total Hysterectomy KNEE ARTHROSCOPY Right Patient Active Problem List Diagnosis Date Noted Memory loss 03/18/2023 Pigmented skin lesion suspicious for malignant neoplasm 03/18/2023 Malignant neoplasm of upper-outer quadrant of left breast in female, estrogen receptor positive ([facility]) ([facility]) 03/18/2023 Edema of both lower extremities 02/05/2023 Parkinsonism 02/05/2023 Allergic reaction to bee sting 10/29/2022 Allergic rhinitis 10/29/2022 Eczema 10/29/2022 Eczema 10/29/2022 Elevated TSH 10/29/2022 External hemorrhoids 10/29/2022 Hair loss 10/29/2022 Low back pain 10/29/2022 Menopausal state 10/29/2022 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HCC) 10/29/2022 Mixed anxiety depressive disorder 10/29/2022 Obesity (BMI 30.0-34.9) 10/29/2022 Obstructive sleep apnea syndrome 10/29/2022 Falling 10/29/2022 Seborrheic keratosis 10/29/2022 Rosacea, acne 10/15/2022 Hemangioma of skin and subcutaneous tissue 04/24/2016 Breast calcifications on mammogram 07/24/2013 Cerebrovascular accident (CVA) ([facility]) 06/23/2009 Social History Tobacco Use Smoking status: Never Smokeless tobacco: Never Vaping Use Vaping Use: Never used Substance Use Topics Alcohol use: Not Currently Drug use: Never Family History Problem Relation Name Age of Onset Breast cancer Mother Lung cancer Father Colon cancer Paternal Grandfather Allergies Allergen Reactions Alendronate Unknown and Other Cephalexin Unknown Dye [Gadolinium] Escitalopram Other and Unknown Iodine Other reaction(s): Hives and/or rash Nickel Unknown Penicillins Unknown Other reaction(s): Intolerance-unknown Patient had multiple doses of IV Zosyn in May 2023 and tolerated without issue Pregabalin Unknown Salicylates Other and Unknown D/t HX of CVA Iodinated Contrast Media Hives Hives x 5 locations, redness of right eye. Current Outpatient Medications Medication Sig Dispense Refill carbidopa-levodopa (Sinemet) 25-100 MG tablet every 8 hours. dexAMETHasone (Decadron) 4 MG tablet Take 1 tablet (4 mg) by mouth in the morning and 1 tablet (4 mg) in the evening. Take with meals. Do all this for 1 day. Take 6 hours and 12 hours prior to first cycle of chemotherapy.. 2 tablet 0 DULoxetine (Cymbalta) [address] capsule Take 1 capsule (20 mg) by mouth once daily. loratadine (Claritin) 10 MG tablet Take 10 mg by mouth daily. memantine (Namenda) 5 MG tablet Take 1 tablet by mouth daily. MULTIPLE VITAMIN PO Take 1 capsule by mouth in the morning. psyllium (Metamucil) 28.3 % powder Take 3.4 g of fiber by mouth daily. VITAMIN D PO Take by mouth. 2 gummies a day No current facility-administered medications for this visit. Review of Systems Constitutional: Positive for fatigue. Negative for appetite change, chills, diaphoresis, fever and unexpected weight change. HENT: Negative for dental problem, mouth sores, nosebleeds, sneezing, sore throat, tinnitus, trouble swallowing and voice change. Eyes: Negative for photophobia, pain and visual disturbance. Respiratory: Negative for cough, shortness of breath and wheezing. Cardiovascular: Negative for chest pain, palpitations and leg swelling. Gastrointestinal: Negative for abdominal distention, abdominal pain, blood in stool, constipation, diarrhea, nausea and vomiting. Endocrine: Negative for cold intolerance and heat intolerance. Genitourinary: Negative for difficulty urinating, frequency, hematuria and urgency. Musculoskeletal: Negative for arthralgias, back pain, gait problem and myalgias. Skin: Negative for pallor and rash. Allergic/Immunologic: Negative for immunocompromised state. Neurological: Positive for speech difficulty and weakness. Negative for dizziness, syncope, light-headedness, numbness and headaches. Hematological: Negative for adenopathy. Does not bruise/bleed easily. Psychiatric/Behavioral: Negative for confusion and sleep disturbance. The patient is not nervous/anxious. All other systems reviewed and are negative. Vitals: 07/15/23 1009 BP: 135/78 BP Location: Right arm Patient Position: Sitting Pulse: 95 Temp: 36.4 C (97.6 F) TempSrc: Temporal SpO2: 93% Weight: 92.5 kg (204 lb) Height: 1.651 m (5' 5) ECOG PS = 2 Physical Exam Vitals and nursing note reviewed. Constitutional: General: She is not in acute distress. Appearance: Normal appearance. She is not ill-appearing. HENT: Head: Normocephalic and atraumatic. Nose: Nose normal. Mouth/Throat: Pharynx: Oropharynx is clear. No oropharyngeal exudate or posterior oropharyngeal erythema. Eyes: General: No scleral icterus. Extraocular Movements: Extraocular movements intact. Conjunctiva/sclera: Conjunctivae normal. Pupils: Pupils are equal, round, and reactive to light. Cardiovascular: Rate and Rhythm: Normal rate and regular rhythm. Heart sounds: Normal heart sounds. No murmur heard. Pulmonary: Effort: Pulmonary effort is normal. No respiratory distress. Breath sounds: Normal breath sounds. No wheezing. Abdominal: General: Abdomen is flat. Bowel sounds are normal. There is no distension. Palpations: Abdomen is soft. There is no mass. Tenderness: There is no abdominal tenderness. There is no guarding. Musculoskeletal: General: No swelling or tenderness. Normal range of motion. Cervical back: Normal range of motion and neck supple. Right lower leg: No edema. Left lower leg: No edema. Lymphadenopathy: Cervical: No cervical adenopathy. Skin: General: Skin is warm and dry. Findings: No bruising or rash. Neurological: Mental Status: She is alert and oriented to person, place, and time. Mental status is at baseline. Motor: Weakness present. Psychiatric: Mood and Affect: Mood normal. Thought Content: Thought content normal. Imaging/Labs: Hospital Outpatient Visit on 06/26/2023 Component Date Value Ref Range Status IVSd 06/26/2023 1.1 (A) 0.6 - 0.9 cm Final LVIDd 06/26/2023 4.9 3.9 - 5.3 cm Final LVIDs 06/26/2023 3.3 cm Final LVOT Diameter 06/26/2023 2.1 cm Final LVPWd 06/26/2023 1.0 (A) 0.6 - 0.9 cm Final Global Longitudinal Strain 06/26/2023 -19.4 % Final Global Longitudinal Strain 06/26/2023 -21.0 % Final Global Longitudinal Strain 06/26/2023 -13.9 % Final Global Longitudinal Strain 06/26/2023 -18.1 % Final LV Ejection Fraction A4C 06/26/2023 62 % Final LV EDV A4C 06/26/2023 78 mL Final LV ESV A4C 06/26/2023 30 mL Final LVOT Cardiac Output 06/26/2023 5.6 liter/minute Final LVOT Peak Gradient 06/26/2023 4 mmHg Final LVOT Mean Gradient 06/26/2023 2 mmHg Final LVOT SV 06/26/2023 63.0 ml Final LVOT Peak Velocity 06/26/2023 1.0 m/s Final LVOT VTI 06/26/2023 18.2 cm Final RV Mid Dimension 06/26/2023 2.7 cm Final RV Basal Dimension 06/26/2023 3.5 cm Final RV Free Wall Peak S' 06/26/2023 23 cm/s Final LA Diameter 06/26/2023 3.2 cm Final LA Volume A/L 06/26/2023 61 mL Final LA Volume 2C 06/26/2023 63 (A) 22 - 52 mL Final LA Volume 4C 06/26/2023 51 22 - 52 mL Final LA Volume BP 06/26/2023 58 (A) 22 - 52 mL Final RA Area 4C 06/26/2023 52.0 mL Final RA Area 4C 06/26/2023 50.1 mL Final AV Area by Peak Velocity 06/26/2023 2.6 cm2 Final AV Area by VTI 06/26/2023 2.6 cm2 Final AR PHT 06/26/2023 443.0 ms Final AR Max Velocity PISA 06/26/2023 3.6 m/s Final AV AT 06/26/2023 74.22 ms Final AV Peak Gradient 06/26/2023 7 mmHg Final AV Mean Gradient 06/26/2023 3 mmHg Final AV Peak Velocity 06/26/2023 1.4 m/s Final AV Mean Velocity 06/26/2023 0.8 m/s Final AV VTI 06/26/2023 24.0 cm Final MV A Velocity 06/26/2023 0.73 m/s Final MV E Wave Deceleration Time 06/26/2023 187.8 ms Final MV E Velocity 06/26/2023 0.51 m/s Final LV E' Lateral Velocity 06/26/2023 6 cm/s Final LV E' Septal Velocity 06/26/2023 6 cm/s Final TAPSE 06/26/2023 2.6 1.7 cm Final Ascending Aorta 06/26/2023 3.4 cm Final IVC Diameter 06/26/2023 1.3 cm Final Aortic Root 06/26/2023 3.2 cm Final Fractional Shortening 2D 06/26/2023 33 28 - 44 % Final LV RWT Ratio 06/26/2023 0.41 Final LV Mass 2D 06/26/2023 188.1 (A) 67 - 162 g Final MV E/A 06/26/2023 0.70 Final E/E' Ratio (Averaged) 06/26/2023 8.50 Final E/E' Lateral 06/26/2023 8.50 Final E/E' Septal 06/26/2023 8.50 Final LVOT Area 06/26/2023 3.5 cm2 Final LA/AO Root Ratio 06/26/2023 1.00 Final AV Velocity Ratio 06/26/2023 0.71 Final LVOT:AV VTI Index 06/26/2023 0.76 Final EF BP 06/26/2023 62 55 - 100 % Final Infusion on 06/24/2023 Component Date Value Ref Range Status SODIUM 06/24/2023 139 135 - 145 mmol/L Final POTASSIUM 06/24/2023 3.9 3.5 - 5.1 mmol/L Final CHLORIDE 06/24/2023 107 98 - 107 mmol/L Final CARBON DIOXIDE 06/24/2023 25 22 - 30 mmol/L Final ANION GAP 06/24/2023 6 3 - 13 mmol/L Final UREA NITROGEN 06/24/2023 18 (H) 7 - 17 mg/dL Final CREATININE 06/24/2023 0.58 0.52 - 1.04 mg/dL Final GLUCOSE 06/24/2023 136 (H) 70 - 100 mg/dL Final CALCIUM 06/24/2023 8.9 8.4 - 10.4 mg/dL Final AST (SGOT) 06/24/2023 40 15 - 46 U/L Final ALT 06/24/2023 37 (H) 0 - 34 U/L Final ALKALINE PHOSPHATASE 06/24/2023 110 38 - 126 U/L Final ALBUMIN 06/24/2023 3.9 3.5 - 5.0 g/dL Final BILIRUBIN, TOTAL 06/24/2023 0.6 0.2 - 1.3 mg/dL Final TOTAL PROTEIN 06/24/2023 7.0 6.3 - 8.2 g/dL Final eGFR 06/24/2023 >90.0 >60.0 mL/min/1.73m*2 Final Calculation based on the Chronic Kidney Disease Epidemiology Collaboration (CKD-EPI) equation refit without adjustment for race Auto WBC 06/24/2023 6.9 3.6 - 10.7 10*3/uL Final RBC 06/24/2023 4.14 3.8 - 5.20 10*6/uL Final Hemoglobin 06/24/2023 12.9 11.7 - 16.0 g/dL Final Hematocrit 06/24/2023 39.4 35.0 - 47.0 % Final MCV 06/24/2023 95.2 80.0 - 98.0 fL Final MCH 06/24/2023 31.2 26.0 - 34.0 pg Final MCHC 06/24/2023 32.7 32.0 - 36.0 % Final RDW 06/24/2023 16.3 (H) 11.5 - 14.5 % Final Platelets 06/24/2023 204 140 - 440 10*3/uL Final MPV 06/24/2023 9.5 7.4 - 12.4 fL Final MPV is a calculated measurement using platelet volume ratio Neutrophils Relative 06/24/2023 70.6 40.0 - 80.0 % Final Lymphocytes Relative 06/24/2023 17.2 (L) 20.0 - 40.0 % Final Monocytes Relative 06/24/2023 7.4 2.0 - 10.0 % Final Eosinophils Relative 06/24/2023 3.8 1.0 - 6.0 % Final Basophils Relative 06/24/2023 0.6 0.0 - 2.0 % Final Immature Grans % 06/24/2023 0.4 (H) <=0.0 % Final Neutrophils Absolute 06/24/2023 4.9 1.8 - 7.0 10*3/uL Final Lymphocytes Absolute 06/24/2023 1.2 1.0 - 4.3 10*3/uL Final Monocytes Absolute 06/24/2023 0.5 0.0 - 0.8 10*3/uL Final Eosinophils Absolute 06/24/2023 0.3 0.0 - 0.5 10*3/uL Final Basophils Absolute 06/24/2023 0.0 0.0 - 0.2 10*3/uL Final Immature Grans Absolute 06/24/2023 0.0 <=0.0 10*3/uL Final Imaging Reviewed: CT Sim WO Narrative: [facility] 1945 [id number] Exam Date/Time: 07/03/2023 11:37 Procedure: CT SIMULATION WO CONTRAST - RADIATION ONCOLOGY Ordering Provider: DIEGO DESIREE Reason For Exam: BREAST CARCINOMA CT simulation therapy /CT chest INDICATION: Breast carcinoma. Technique: Large [id number] 3 mm axial sections were obtained through the chest without IV contrast administration. Images were performed primarily for radiation planning therapy purposes. Images are suboptimal for diagnostic interpretation. Dose reduction was employed with automated exposure control. FINDINGS: 3.7 x 3.9 cm hypodense fluid collection within the left lateral breast tissues, likely due to seroma following breast mass resection. Enlarged left thyroid gland with 3 x 3 cm left thyroid hypodensity. Minimal right basilar atelectasis is identified. 4 mm right middle lobe pulmonary nodule (series 2, image 69). No pleural effusion is seen. No mediastinal or hilar adenopathy. Scant coronary artery calcifications are identified. The cardiac chambers are not enlarged. Small sliding hiatal hernia. Images through the upper abdomen show are unremarkable. Minimal thoracic degenerative spondylosis. No osseous lesions. Impression: 1. Status post left breast mass resection with residual fluid collection as detailed above. 2. 4 mm right middle lobe pulmonary nodule. There are no prior exams for comparison. 3. Right basilar atelectasis. Small sliding hiatal hernia. Report Dictated on Electronically Signed By: Marie Landeros DO Electronically Signed Date/Time: 07/06/2023 9:40 AM EST - I have reviewed all available pertinent laboratory, imaging and pathology results with the patient and/or family members today. Assessment/Plan: Diagnosis Plan 1. Malignant neoplasm of upper-outer quadrant of left breast in female, estrogen receptor positive (HCC) (HCC) 1) stage 1A left breast cancer ER+/WV+/HER2+ pT1c pN0 cM0 s/p left partial mastectomy and SLNBx to clear margins on 02/18/23 - Today, we again reviewed the diagnosis, staging, natural history, prognosis, and treatment options for her stage 1 left breast cancer. NCCN guidelines were reviewed. Treatment intent is curative. - will proceed with Trastuzumab every 3 weeks to complete 1 year of treatment (until approximately March 2024). See chemo orders. Potential side effects and anticipated benefits of Trastuzumab were reviewed with the patient and they agreed to proceed with treatment. - she will proceed with radiation therapy with Dr. Diego. Started 07/14/23 - After radiation therapy is completed, adjuvant endocrine therapy with an AI for 5 years will be recommended. - echo prior to treatment on 03/26/23 with EF 63%. Most recent echo 06/26/23 with EF 62%. Monitor every 3 months - supportive care. See lab orders with chemotherapy. All questions were answered to the satisfaction of the patient and/or family. Return to office in 6 weeks for Trastuzumab, or sooner if worrisome signs/symptoms arise. Stevie Escobedo DO Hematology/Medical Oncology documented in this encounter [facility] 07-14-2023 Telephone encounter Note Reached out to patient's daughter on this date by phone to check-in, assess needs, and offer support. Left voicemail requesting return call. [facility] 07-14-2023 Miscellaneous Notes Reached out to patient's daughter on this date by phone to check-in, assess needs, and offer support. Left voicemail requesting return call. documented in this encounter [facility] 07-03-2023 History of Present illness Narrative RADIATION ONCOLOGY FOLLOW UP PATIENT: Madiha Perales DATE OF SERVICE: 07/03/2023 : 1945 AGE: 78 y.o. PRIMARY SITE AND HISTOPATHOLOGY: Left breast, grade 3 invasive ductal carcinoma, ER positive, WV positive, HER2 positive. STAGE: cT1b N0 M0, IA; pT1c N0 M0, IA HISTORY OF PRESENT ILLNESS: This is a 78-year-old female who was noted to have an abnormal screening mammogram of the upper outer quadrant of the left breast on 11/27/2022. The area was asymptomatic and nonpalpable. Diagnostic views and ultrasound were performed on 01/21/2023. This identified a 0.9 x 0.9 x 1 cm irregular mass in the left breast. Biopsy was performed at [facility] on 01/28/2023. This revealed grade 3 invasive ductal carcinoma measuring at least 8 mm in dimension. ER positive at 100%, WV positive at 70% and HER2 positive at 3+. The patient underwent lumpectomy and sentinel node removal on 02/18/2023. Pathology revealed grade 3 invasive ductal carcinoma measuring 1.9 cm. There was focal DCIS of high-grade. Extensive lymphovascular invasion. Margins were negative for invasive and in situ component at greater than 2 mm. 6 nodes were removed, 5 sentinel and 1 nonsentinel. All were negative. Pathologically staged T1CN0. We were consulted to discuss postoperative radiation therapy. The patient was seen by medical oncology and started weekly Taxol on 04/01/2023 for planned 12 cycles. Trazimera was started with cycle 2. Taxol was discontinued after the eighth cycle on 05/27/2023 due to symptoms. Trazimera is scheduled to continue for 1 year. INTERVAL HISTORY: The patient returns today with her and her daughter. Chemotherapy was discontinued after the eighth cycle due to side effects. She required admission to [facility] on 06/05/2023 through 06/08/2023 for symptom control. The patient has continued to recover. She resumed Trazimera on 06/24/2023. Appetite is stable. Energy level is fair but has improved. No breast complaints. No respiratory or cardiac complaints. No swelling in extremities. She has no pain. PAST MEDICAL HISTORY: Past Medical History: Diagnosis Date Allergic rhinitis Anxiety Back pain Lower back pain Breast calcifications on mammogram Dementia ([facility]) Depression Eczema H/O colonoscopy Hemorrhoid Hx of rosacea Lower extremity edema MARCY (obstructive sleep apnea) The patient wears CPAP Parkinson disease Stroke ([facility]) 2009 Torn meniscus Uterine cancer ([facility]/HCC) ([facility]) 2005 PAST SURGICAL HISTORY: Past Surgical History: Procedure Laterality Date BREAST LUMPECTOMY 02/18/2023 Left breast Lumpectomy and sentinel lymph node biopsy BREAST LUMPECTOMY Left 2013 Benign left breast lumpectomy CATARACT EXTRACTION, BILATERAL 2012 Bilateral cataract surgery HYSTERECTOMY 2006 Total Hysterectomy KNEE ARTHROSCOPY Right ALLERGIES: Allergies as of 07/03/2023 - Reviewed 07/03/2023 Allergen Reaction Noted Alendronate Unknown and Other 05/07/2010 Cephalexin Unknown 05/07/2010 Dye [gadolinium] 03/06/2023 Escitalopram Other and Unknown 10/24/2022 Iodine 03/06/2023 Nickel Unknown 05/07/2010 Penicillins Unknown 05/12/2010 Pregabalin Unknown 05/07/2010 Salicylates Other and Unknown 05/07/2010 Iodinated contrast media Hives 06/14/2010 MEDICATIONS: Current Outpatient Medications Medication Sig Dispense Refill carbidopa-levodopa (Sinemet) 25-100 MG tablet every 8 hours. DULoxetine (Cymbalta) [address] capsule Take 1 capsule (20 mg) by mouth once daily. loratadine (Claritin) 10 MG tablet Take 10 mg by mouth daily. memantine (Namenda) 5 MG tablet Take 1 tablet by mouth daily. MULTIPLE VITAMIN PO Take 1 capsule by mouth in the morning. VITAMIN D PO Take by mouth. 2 gummies a day dexAMETHasone (Decadron) 4 MG tablet Take 1 tablet (4 mg) by mouth in the morning and 1 tablet (4 mg) in the evening. Take with meals. Do all this for 1 day. Take 6 hours and 12 hours prior to first cycle of chemotherapy.. 2 tablet 0 psyllium (Metamucil) 28.3 % powder Take 3.4 g of fiber by mouth daily. No current facility-administered medications for this encounter. REVIEW OF SYSTEMS: As above. Pain score 0. KPS: 80 SUMMARY OF SIGNIFICIANT X-RAY/LABORATORY FINDINGS: Radiology as per history. Blood count on 06/24/2023 shows a normal white count of 6.9, hemoglobin of 12.9 and platelet count of 204,000. CMP on the same date was within normal limits except for BUN elevation of 18, glucose elevation 136, ALT elevation of 37. GFR was normal greater than 90. PHYSICAL EXAM: Accompanied by and daughter. BP 135/87 Pulse 84 Temp 97.7 F (36.5 C) Resp 20 Ht 5' 5 (1.651 m) Wt 199 lb 9.6 oz (90.5 kg) SpO2 97% BMI 33.22 kg/m /Pain Score: 0 - No pain /Fatigue Assessment: Must curtail daily activities even with rest periods and earlier bedtime GENERAL: Awake, alert, oriented, no anxiety, dressed appropriately, appears of stated age. Ambulates without assistance. Speech pattern fluent. LUNGS: Clear to auscultation. No rales or rhonchi. HEART: Regular rate and rhythm, S1-S2 noted no murmur. NECK: Symmetric. NODES: No neck, supraclavicular, infraclavicular, or axillary adenopathy. ABDOMEN: Soft, nontender, nondistended. No hepatosplenomegaly, no suspicious mass. BREAST: Left breast has postsurgery changes noted. Slightly smaller and more uplifted. There is a faint scar in the upper inner region of the left breast where she had the prior lumpectomy. Healed curvilinear scar is located in the upper outer quadrant as well as a healed scar in the left axilla. Postsurgery changes in the region. No suspicious mass in either breast. No nipple discharge. MUSCULOSKELETAL: No swelling or calf tenderness bilaterally. No spine or posterior chest wall tenderness. Good range of motion in both shoulders. No gross arm edema evident. IMPRESSION: Madiha Perales is a 78 y.o. female with HER2 positive left breast cancer. She completed approximately two thirds of the chemotherapy. She continues on the Trazimera for projected 1 year. Recommending radiation therapy to maximize local control. We discussed the treatment plan and possible side effects. The patient and her family's questions were answered. She wishes to pursue therapy. We discussed the importance of hydration, healthy nutrition and pursuing the arm exercises several times a week to help with mobility. Information on skin care and activity instructions for use during therapy is being given. She is set up to start planning today. PLAN: Under CT guidance mosqueda are being set up to treat the left breast with hypofractionated technique for 4 weeks of therapy. Vicki Diego MD [facility] Department of Radiation Oncology is an Accredited Facility of the [employer] ([employer]). Total time: 35 minutes in chart review, lab/radiology evaluation/interpretation, patient exam, patient counseling and care coordination. This document was completed utilizing speech recognition software. Grammatical errors, random word insertions, pronoun errors, and incomplete sentences are an occasional consequence of this system due to software limitations, ambient noise, and hardware issues. Any formal questions or concerns about the content, text or information contained within the body of this dictation should be directly addressed to the provider for clarification. documented in this encounter [facility] 07-03-2023 Nurse Note The patient is here at [facility] with her and daughter for follow up with Dr. Diego. She denies pain at the current time. She states her appetite and sleeping are WNL. He states she has low energy. She is on Trastuzumab every 3 weeks under the care of Dr. Escobedo. [facility] 07-03-2023 Nurse Note The patient signed consent and the RN signed as a witness. The RN gave and reviewed skin care teaching with the patient. The patient verbalized understanding. [facility] 07-03-2023 Nurse Note The patient is here at [facility] with her and daughter for follow up with Dr. Diego. She denies pain at the current time. She states her appetite and sleeping are WNL. He states she has low energy. She is on Trastuzumab every 3 weeks under the care of Dr. Escobedo. The patient signed consent and the RN signed as a witness. The RN gave and reviewed skin care teaching with the patient. The patient verbalized understanding. documented in this encounter [facility] 06-26-2023 History of Present illness Narrative Subjective Patient ID: Madiha Perales is a 78 y.o. female who presents for Hospital Follow-up (Was at [facility] was not responsive could not even stand, saying it was from the chemo ). HPI Madiha was seen today, present, for a hospital follow-up, status post dehydration, lethargy, breast cancer chemotherapy related toxicity. She was admitted mid May, full infection workup done, possible right lower lobe pneumonia considered, though CT scan suspected atelectasis. She did complete a course of antibiotics, was hydrated, improved sufficiently to be discharged to home with home health care. All records reviewed in detail. She has had cardiology and oncology follow-up since her discharge. Chemotherapy now discontinued, she is now scheduled for radiation. Her appetite has improved some, energy and strength as well, though still decreased. Madiha continues her duloxetine and Sinemet as prescribed. Since Sinemet prescribed, her movements have been stronger, she has not fallen, and her notes fairly good improvement from a parkinsonian standpoint. Review of Systems The full review of systems is negative with the exception of what is noted in HPI Objective BP 111/72 (BP Location: Right arm, Patient Position: Sitting, BP Cuff Size: Large adult) Pulse 85 Temp 37.2 C (99 F) (Temporal) Resp 16 Wt 90.8 kg (200 lb 1.6 oz) SpO2 92% BMI 33.30 kg/m Physical Exam Cardiac exam reveals a regular rate and rhythm, murmur present. Lungs are clear bilaterally. No lower extremity edema present. She is comfortable in no acute distress, smiles regularly. Mild cognitive impairment evident. Her gait is steady. Assessment/Plan Status posthospitalization as noted above in HPI. She will continue current medications, keep medical and radiation oncology follow-up, as well as cardiology care. Echocardiogram is up-to-date. Sinemet has been helpful, continue at present regimen 3 times daily with meals. I discussed in detail the need to watch for any sudden change in cognition, behavior, appetite as well as worsening gait/fall risk, as signs of infection (particularly UTI). Follow-up as scheduled Total time spent with patient, reviewing records, and completing charting was 40 minutes, over half of it spent counseling and/or coordinating care Portions of this medical record have been created using voice recognition software and may have minor errors which are inherent in voice recognition systems. It has not been fully edited for typographical or grammatical errors documented in this encounter [facility] Work Phone: 06-24-2023 History of Present illness Narrative Hematology/Oncology Office Visit Oncology History: 1) stage 1A left breast cancer, invasive ductal carcinoma grade 3. ER+ WV+ HER2+. cT1b N0 M0; pT1c N0 M0, diagnosed 01/28/23. - Patient is a 78 yo F who presented with an abnormal screening mammogram of the upper outer quadrant of the left breast on 11/27/22. Diagnostic imaging and ultrasound were performed on 01/21/2023: a 0.9 x 0.9 x 1 cm irregular mass in the left breast. Biopsy was performed at [facility] on 01/28/2023 confirming grade 3 invasive ductal carcinoma ER positive 100%, WV positive 70% and HER2 positive at 3+. The patient underwent lumpectomy and sentinel node removal on 02/18/[address] Choi at [facility]: pathology revealed grade 3 invasive ductal carcinoma measuring 1.9 cm. There was focal DCIS and extensive lymphovascular invasion. Margins were negative for invasive and in situ component at greater than 2 mm. 6 axillary nodes were removed: 5 sentinel and 1 nonsentinel. All were negative. Pathologically staged T1CN0. - she was referred to [facility] for medical and radiation oncology. Her case was reviewed at our tumor board and adjuvant chemotherapy, radiation, and AI therapy were recommended. She started weekly taxol and herceptin on 04/01/23. She required a 25% reduction in Taxol for cycle 3 due to neutropenia. She completed 8 of the 12 planned cycles of weekly Taxol, but the Taxol was stopped early due to poor tolerance. Herceptin every 3 weeks continued. HPI: Madiha Perales is a 78 y.o. female who comes in today for her next cycle of Herceptin. She is feeling better overall. No chest pain or shortness of breath. No falls at home. PO intake improved. No fevers or chills. No swelling. No headaches. Recall, patient has Parkinson's and had a stroke a few years ago, but is generally doing well at home. She is active the majority of the day and continues to take care of the house. She does have some mild expressive aphasia. Past Medical History: Diagnosis Date Allergic rhinitis Anxiety Back pain Lower back pain Breast calcifications on mammogram Dementia (HCC) Depression Eczema H/O colonoscopy Hemorrhoid Hx of rosacea Lower extremity edema MARCY (obstructive sleep apnea) The patient wears CPAP Parkinson disease Stroke ([facility]) 2009 Torn meniscus Uterine cancer (CMS/HCC) (HCC) 2005 Past Surgical History: Procedure Laterality Date BREAST LUMPECTOMY 02/18/2023 Left breast Lumpectomy and sentinel lymph node biopsy BREAST LUMPECTOMY Left 2013 Benign left breast lumpectomy CATARACT EXTRACTION, BILATERAL 2012 Bilateral cataract surgery HYSTERECTOMY 2006 Total Hysterectomy KNEE ARTHROSCOPY Right Patient Active Problem List Diagnosis Date Noted Memory loss 03/18/2023 Pigmented skin lesion suspicious for malignant neoplasm 03/18/2023 Malignant neoplasm of upper-outer quadrant of left breast in female, estrogen receptor positive (HCC) 03/18/2023 Edema of both lower extremities 02/05/2023 Parkinsonism 02/05/2023 Allergic reaction to bee sting 10/29/2022 Allergic rhinitis 10/29/2022 Eczema 10/29/2022 Eczema 10/29/2022 Elevated TSH 10/29/2022 External hemorrhoids 10/29/2022 Hair loss 10/29/2022 Low back pain 10/29/2022 Menopausal state 10/29/2022 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HCC) 10/29/2022 Mixed anxiety depressive disorder 10/29/2022 Obesity (BMI 30.0-34.9) 10/29/2022 Obstructive sleep apnea syndrome 10/29/2022 Falling 10/29/2022 Seborrheic keratosis 10/29/2022 Rosacea, acne 10/15/2022 Hemangioma of skin and subcutaneous tissue 04/24/2016 Breast calcifications on mammogram 07/24/2013 Cerebrovascular accident (CVA) (HCC) 06/23/2009 Social History Tobacco Use Smoking status: Never Smokeless tobacco: Never Vaping Use Vaping Use: Never used Substance Use Topics Alcohol use: Not Currently Drug use: Never Family History Problem Relation Name Age of Onset Breast cancer Mother Lung cancer Father Colon cancer Paternal Grandfather Allergies Allergen Reactions Alendronate Unknown and Other Cephalexin Unknown Dye [Gadolinium] Escitalopram Other and Unknown Iodine Other reaction(s): Hives and/or rash Nickel Unknown Penicillins Unknown Other reaction(s): Intolerance-unknown Patient had multiple doses of IV Zosyn in May 2023 and tolerated without issue Pregabalin Unknown Salicylates Other and Unknown D/t HX of CVA Iodinated Contrast Media Hives Hives x 5 locations, redness of right eye. Current Outpatient Medications Medication Sig Dispense Refill carbidopa-levodopa (Sinemet) 25-100 MG tablet every 8 hours. dexAMETHasone (Decadron) 4 MG tablet Take 1 tablet (4 mg) by mouth in the morning and 1 tablet (4 mg) in the evening. Take with meals. Do all this for 1 day. Take 6 hours and 12 hours prior to first cycle of chemotherapy.. 2 tablet 0 DULoxetine (Cymbalta) [address] capsule Take 1 capsule (20 mg) by mouth once daily. loratadine (Claritin) 10 MG tablet Take 10 mg by mouth daily. memantine (Namenda) 5 MG tablet Take 1 tablet by mouth daily. MULTIPLE VITAMIN PO Take 1 capsule by mouth in the morning. psyllium (Metamucil) 28.3 % powder Take 3.4 g of fiber by mouth daily. No current facility-administered medications for this visit. Review of Systems Constitutional: Positive for fatigue. Negative for appetite change, chills, diaphoresis, fever and unexpected weight change. HENT: Negative for dental problem, mouth sores, nosebleeds, sneezing, sore throat, tinnitus, trouble swallowing and voice change. Eyes: Negative for photophobia, pain and visual disturbance. Respiratory: Negative for cough, shortness of breath and wheezing. Cardiovascular: Negative for chest pain, palpitations and leg swelling. Gastrointestinal: Negative for abdominal distention, abdominal pain, blood in stool, constipation, diarrhea, nausea and vomiting. Endocrine: Negative for cold intolerance and heat intolerance. Genitourinary: Negative for difficulty urinating, frequency, hematuria and urgency. Musculoskeletal: Negative for arthralgias, back pain, gait problem and myalgias. Skin: Negative for pallor and rash. Allergic/Immunologic: Negative for immunocompromised state. Neurological: Positive for speech difficulty and weakness. Negative for dizziness, syncope, light-headedness, numbness and headaches. Hematological: Negative for adenopathy. Does not bruise/bleed easily. Psychiatric/Behavioral: Negative for confusion and sleep disturbance. The patient is not nervous/anxious. All other systems reviewed and are negative. Vitals: 06/24/23 0803 BP: 121/76 BP Location: Right arm Patient Position: Sitting Pulse: 93 Temp: 36.9 C (98.5 F) TempSrc: Temporal SpO2: 93% Weight: 91.2 kg (201 lb) Height: 1.651 m (5' 5) ECOG PS = 2 Physical Exam Vitals and nursing note reviewed. Constitutional: General: She is not in acute distress. Appearance: Normal appearance. She is not ill-appearing. HENT: Head: Normocephalic and atraumatic. Nose: Nose normal. Mouth/Throat: Pharynx: Oropharynx is clear. No oropharyngeal exudate or posterior oropharyngeal erythema. Eyes: General: No scleral icterus. Extraocular Movements: Extraocular movements intact. Conjunctiva/sclera: Conjunctivae normal. Pupils: Pupils are equal, round, and reactive to light. Cardiovascular: Rate and Rhythm: Normal rate and regular rhythm. Heart sounds: Normal heart sounds. No murmur heard. Pulmonary: Effort: Pulmonary effort is normal. No respiratory distress. Breath sounds: Normal breath sounds. No wheezing. Abdominal: General: Abdomen is flat. Bowel sounds are normal. There is no distension. Palpations: Abdomen is soft. There is no mass. Tenderness: There is no abdominal tenderness. There is no guarding. Musculoskeletal: General: No swelling or tenderness. Normal range of motion. Cervical back: Normal range of motion and neck supple. Right lower leg: No edema. Left lower leg: No edema. Lymphadenopathy: Cervical: No cervical adenopathy. Skin: General: Skin is warm and dry. Findings: No bruising or rash. Neurological: Mental Status: She is alert and oriented to person, place, and time. Mental status is at baseline. Motor: Weakness present. Psychiatric: Mood and Affect: Mood normal. Thought Content: Thought content normal. Imaging/Labs: Infusion on 06/24/2023 Component Date Value Ref Range Status SODIUM 06/24/2023 139 135 - 145 mmol/L Final POTASSIUM 06/24/2023 3.9 3.5 - 5.1 mmol/L Final CHLORIDE 06/24/2023 107 98 - 107 mmol/L Final CARBON DIOXIDE 06/24/2023 25 22 - 30 mmol/L Final ANION GAP 06/24/2023 6 3 - 13 mmol/L Final UREA NITROGEN 06/24/2023 18 (H) 7 - 17 mg/dL Final CREATININE 06/24/2023 0.58 0.52 - 1.04 mg/dL Final GLUCOSE 06/24/2023 136 (H) 70 - 100 mg/dL Final CALCIUM 06/24/2023 8.9 8.4 - 10.4 mg/dL Final AST (SGOT) 06/24/2023 40 15 - 46 U/L Final ALT 06/24/2023 37 (H) 0 - 34 U/L Final ALKALINE PHOSPHATASE 06/24/2023 110 38 - 126 U/L Final ALBUMIN 06/24/2023 3.9 3.5 - 5.0 g/dL Final BILIRUBIN, TOTAL 06/24/2023 0.6 0.2 - 1.3 mg/dL Final TOTAL PROTEIN 06/24/2023 7.0 6.3 - 8.2 g/dL Final eGFR 06/24/2023 >90.0 >60.0 mL/min/1.73m*2 Final Calculation based on the Chronic Kidney Disease Epidemiology Collaboration (CKD-EPI) equation refit without adjustment for race Auto WBC 06/24/2023 6.9 3.6 - 10.7 10*3/uL Final RBC 06/24/2023 4.14 3.8 - 5.20 10*6/uL Final Hemoglobin 06/24/2023 12.9 11.7 - 16.0 g/dL Final Hematocrit 06/24/2023 39.4 35.0 - 47.0 % Final MCV 06/24/2023 95.2 80.0 - 98.0 fL Final MCH 06/24/2023 31.2 26.0 - 34.0 pg Final MCHC 06/24/2023 32.7 32.0 - 36.0 % Final RDW 06/24/2023 16.3 (H) 11.5 - 14.5 % Final Platelets 06/24/2023 204 140 - 440 10*3/uL Final MPV 06/24/2023 9.5 7.4 - 12.4 fL Final MPV is a calculated measurement using platelet volume ratio Neutrophils Relative 06/24/2023 70.6 40.0 - 80.0 % Final Lymphocytes Relative 06/24/2023 17.2 (L) 20.0 - 40.0 % Final Monocytes Relative 06/24/2023 7.4 2.0 - 10.0 % Final Eosinophils Relative 06/24/2023 3.8 1.0 - 6.0 % Final Basophils Relative 06/24/2023 0.6 0.0 - 2.0 % Final Immature Grans % 06/24/2023 0.4 (H) <=0.0 % Final Neutrophils Absolute 06/24/2023 4.9 1.8 - 7.0 10*3/uL Final Lymphocytes Absolute 06/24/2023 1.2 1.0 - 4.3 10*3/uL Final Monocytes Absolute 06/24/2023 0.5 0.0 - 0.8 10*3/uL Final Eosinophils Absolute 06/24/2023 0.3 0.0 - 0.5 10*3/uL Final Basophils Absolute 06/24/2023 0.0 0.0 - 0.2 10*3/uL Final Immature Grans Absolute 06/24/2023 0.0 <=0.0 10*3/uL Final Infusion on 06/03/2023 Component Date Value Ref Range Status SODIUM 06/03/2023 134 (L) 135 - 145 mmol/L Final POTASSIUM 06/03/2023 4.5 3.5 - 5.1 mmol/L Final CHLORIDE 06/03/2023 100 98 - 107 mmol/L Final CARBON DIOXIDE 06/03/2023 22 22 - 30 mmol/L Final ANION GAP 06/03/2023 12 3 - 13 mmol/L Final UREA NITROGEN 06/03/2023 12 7 - 17 mg/dL Final CREATININE 06/03/2023 0.74 0.52 - 1.04 mg/dL Final GLUCOSE 06/03/2023 146 (H) 70 - 100 mg/dL Final CALCIUM 06/03/2023 8.8 8.4 - 10.4 mg/dL Final AST (SGOT) 06/03/2023 45 15 - 46 U/L Final ALT 06/03/2023 24 0 - 34 U/L Final ALKALINE PHOSPHATASE 06/03/2023 79 38 - 126 U/L Final ALBUMIN 06/03/2023 3.9 3.5 - 5.0 g/dL Final BILIRUBIN, TOTAL 06/03/2023 0.8 0.2 - 1.3 mg/dL Final TOTAL PROTEIN 06/03/2023 7.0 6.3 - 8.2 g/dL Final eGFR 06/03/2023 83.4 >60.0 mL/min/1.73m*2 Final Calculation based on the Chronic Kidney Disease Epidemiology Collaboration (CKD-EPI) equation refit without adjustment for race Auto WBC 06/03/2023 6.9 3.6 - 10.7 10*3/uL Final RBC 06/03/2023 4.13 3.8 - 5.20 10*6/uL Final Hemoglobin 06/03/2023 12.9 11.7 - 16.0 g/dL Final Hematocrit 06/03/2023 38.2 35.0 - 47.0 % Final MCV 06/03/2023 92.5 80.0 - 98.0 fL Final MCH 06/03/2023 31.2 26.0 - 34.0 pg Final MCHC 06/03/2023 33.8 32.0 - 36.0 % Final RDW 06/03/2023 15.8 (H) 11.5 - 14.5 % Final Platelets 06/03/2023 251 140 - 440 10*3/uL Final MPV 06/03/2023 9.6 7.4 - 12.4 fL Final MPV is a calculated measurement using platelet volume ratio Neutrophils Relative 06/03/2023 83.4 (H) 40.0 - 80.0 % Final Lymphocytes Relative 06/03/2023 6.2 (L) 20.0 - 40.0 % Final Monocytes Relative 06/03/2023 6.7 2.0 - 10.0 % Final Eosinophils Relative 06/03/2023 0.9 (L) 1.0 - 6.0 % Final Basophils Relative 06/03/2023 0.9 0.0 - 2.0 % Final Immature Grans % 06/03/2023 1.9 (H) <=0.0 % Final Neutrophils Absolute 06/03/2023 5.8 1.8 - 7.0 10*3/uL Final Lymphocytes Absolute 06/03/2023 0.4 (L) 1.0 - 4.3 10*3/uL Final Monocytes Absolute 06/03/2023 0.5 0.0 - 0.8 10*3/uL Final Eosinophils Absolute 06/03/2023 0.1 0.0 - 0.5 10*3/uL Final Basophils Absolute 06/03/2023 0.1 0.0 - 0.2 10*3/uL Final Immature Grans Absolute 06/03/2023 0.1 (H) <=0.0 10*3/uL Final Color, Urine 06/03/2023 Yellow Lt. Yellow Final Clarity, Urine 06/03/2023 Clear Clear Final pH, Urine 06/03/2023 7.0 5.0 - 8.0 pH Final Leukocytes, Urine 06/03/2023 500 (A) Negative Jose/uL Final Nitrite, Urine 06/03/2023 Negative Negative Final Protein, Urine 06/03/2023 Negative Negative mg/dL Final Glucose, Urine 06/03/2023 Normal Normal (<70) mg/dL Final Bilirubin, Urine 06/03/2023 Negative Negative mg/dL Final Ketones, Urine 06/03/2023 Negative Negative mg/dL Final Urobilinogen, Urine 06/03/2023 Normal Normal (0-1) mg/dL Final Blood, Urine 06/03/2023 0.06 (A) Negative mg/dL Final Volume, Urine 06/03/2023 8-12 mL Final RBC, Urine 06/03/2023 3-5 (A) 0 - 2 /HPF Final WBC, Urine 06/03/2023 6-10 (A) 0 - 5 /HPF Final Squamous Epithelial, Urine 06/03/2023 0-2 3 - 5 /HPF Final Non-Squamous Epithalial Cells, Uri* 06/03/2023 0-2 (A) Negative /HPF Final Bacteria, Urine 06/03/2023 Moderate (A) Negative /HPF Final SPECIFIC GRAVITY OF URINE (NUMERIC) 06/03/2023 1.010 1.005 - 1.030 Final Urine Culture 06/03/2023 Normal urogenital jeffrey present Final Infusion on 05/27/2023 Component Date Value Ref Range Status SODIUM 05/27/2023 135 135 - 145 mmol/L Final POTASSIUM 05/27/2023 3.7 3.5 - 5.1 mmol/L Final CHLORIDE 05/27/2023 103 98 - 107 mmol/L Final CARBON DIOXIDE 05/27/2023 24 22 - 30 mmol/L Final ANION GAP 05/27/2023 9 3 - 13 mmol/L Final UREA NITROGEN 05/27/2023 12 7 - 17 mg/dL Final CREATININE 05/27/2023 0.54 0.52 - 1.04 mg/dL Final GLUCOSE 05/27/2023 131 (H) 70 - 100 mg/dL Final CALCIUM 05/27/2023 8.8 8.4 - 10.4 mg/dL Final AST (SGOT) 05/27/2023 33 15 - 46 U/L Final ALT 05/27/2023 20 0 - 34 U/L Final ALKALINE PHOSPHATASE 05/27/2023 81 38 - 126 U/L Final ALBUMIN 05/27/2023 4.0 3.5 - 5.0 g/dL Final BILIRUBIN, TOTAL 05/27/2023 0.6 0.2 - 1.3 mg/dL Final TOTAL PROTEIN 05/27/2023 6.7 6.3 - 8.2 g/dL Final eGFR 05/27/2023 >90.0 >60.0 mL/min/1.73m*2 Final Calculation based on the Chronic Kidney Disease Epidemiology Collaboration (CKD-EPI) equation refit without adjustment for race Auto WBC 05/27/2023 5.3 3.6 - 10.7 10*3/uL Final RBC 05/27/2023 4.15 3.8 - 5.20 10*6/uL Final Hemoglobin 05/27/2023 13.1 11.7 - 16.0 g/dL Final Hematocrit 05/27/2023 38.5 35.0 - 47.0 % Final MCV 05/27/2023 92.8 80.0 - 98.0 fL Final MCH 05/27/2023 31.6 26.0 - 34.0 pg Final MCHC 05/27/2023 34.0 32.0 - 36.0 % Final RDW 05/27/2023 15.8 (H) 11.5 - 14.5 % Final Platelets 05/27/2023 226 140 - 440 10*3/uL Final MPV 05/27/2023 9.5 7.4 - 12.4 fL Final MPV is a calculated measurement using platelet volume ratio Neutrophils Relative 05/27/2023 74.9 40.0 - 80.0 % Final Lymphocytes Relative 05/27/2023 12.7 (L) 20.0 - 40.0 % Final Monocytes Relative 05/27/2023 7.8 2.0 - 10.0 % Final Eosinophils Relative 05/27/2023 1.7 1.0 - 6.0 % Final Basophils Relative 05/27/2023 0.8 0.0 - 2.0 % Final Immature Grans % 05/27/2023 2.1 (H) <=0.0 % Final Neutrophils Absolute 05/27/2023 4.0 1.8 - 7.0 10*3/uL Final Lymphocytes Absolute 05/27/2023 0.7 (L) 1.0 - 4.3 10*3/uL Final Monocytes Absolute 05/27/2023 0.4 0.0 - 0.8 10*3/uL Final Eosinophils Absolute 05/27/2023 0.1 0.0 - 0.5 10*3/uL Final Basophils Absolute 05/27/2023 0.0 0.0 - 0.2 10*3/uL Final Immature Grans Absolute 05/27/2023 0.1 (H) <=0.0 10*3/uL Final Imaging Reviewed: Vascular US lower extremity venous duplex left No evidence of deep vein or superficial vein thrombosis in the left lower extremity. Vessels demonstrate normal compressibility, color filling, and phasic and spontaneous flow. Contralateral imaging of the right common femoral vein was normal. - I have reviewed all available pertinent laboratory, imaging and pathology results with the patient and/or family members today. Assessment/Plan: Diagnosis Plan 1. Malignant neoplasm of upper-outer quadrant of left breast in female, estrogen receptor positive (HCC) 1) stage 1A left breast cancer ER+/WV+/HER2+ pT1c pN0 cM0 s/p left partial mastectomy and SLNBx to clear margins on 02/18/23 - Today, we again reviewed the diagnosis, staging, natural history, prognosis, and treatment options for her stage 1 left breast cancer. NCCN guidelines were reviewed. Treatment intent is curative. - will proceed with Trastuzumab every 3 weeks to complete 1 year of treatment. See chemo orders. Potential side effects and anticipated benefits of Trastuzumab were reviewed with the patient and they agreed to proceed with treatment. - now that the Taxol is completed, she will proceed with radiation therapy with Dr. Diego. They have some questions regarding the radiation and would like to discuss with Dr. Diego again prior to proceeding with the radiation. - After radiation therapy is completed, adjuvant endocrine therapy with an AI for 5 years will be recommended. - echo prior to treatment on 03/26/23 with EF 63%. Monitor every 3 months - supportive care. See lab orders with chemotherapy. All questions were answered to the satisfaction of the patient and/or family. Return to office in 3 weeks for Trastuzumab, or sooner if worrisome signs/symptoms arise. Stevie Escobedo DO Hematology/Medical Oncology documented in this encounter [facility] 06-24-2023 History of Present illness Narrative Patient arrived ambulatory with Rolator assist for first dose Q 3 week Trazimera. Patient last ECHO on 03/26=63%, next ECHO scheduled for 06-26-22. PIV inserted in R hand, blood for CBC and CMP obtained and sent to lab. Patient and patient spouse escorted to private room for Ov with physician. Patient returned to infusion suite. Patient tolerated 90 min Trazimera dose without issue or complaint. Vitals obtained. PIV d/c'd. Patient stable and ambulatory upon discharge. documented in this encounter [facility] 06-24-2023 History of Present illness Narrative Patient arrived ambulatory with Rolator assist for first dose Q 3 week Trazimera. Patient last ECHO on 03/26=63%, next ECHO scheduled for 06-26-22. PIV inserted in R hand, blood for CBC and CMP obtained and sent to lab. Patient and patient spouse escorted to private room for Ov with physician. Patient returned to infusion suite. Patient tolerated 90 min Trazimera dose without issue or complaint. Vitals obtained. PIV d/c'd. Patient stable and ambulatory upon discharge. documented in this encounter [facility] 06-13-2023 History of Present illness Narrative Arrival Note Infusion Patient is here for hydration Labs were not ordered. 1013 Infusion completed and flushed with NS. No IV related complications. No s/sx rx, pt voices no c/o. Pt verbalizes understanding of s/sx adverse reaction or complication to report to MD office when at home. documented in this encounter [facility] 06-13-2023 Telephone encounter Note Patient accepted and confirmed home health start of care (SOC) for 06/12/23. Visit time established. [facility] Work Phone: 06-13-2023 Miscellaneous Notes Patient accepted and confirmed home health start of care (SOC) for 06/12/23. Visit time established. documented in this encounter [facility] 06-12-2023 Telephone encounter Note Received return message from patient's daughter/Wesley. Wesley states the visiting nurse came out today to see patient and she is scheduled to visit again on Friday. Wesley states PT and OT have been cancelled for now. Wesley states there are no needs at this time but she does have this worker's contact information and will reach out if needs/questions arise. [facility] 06-12-2023 Miscellaneous Notes Received return message from patient's daughter/Wesley. Wesley states the visiting nurse came out today to see patient and she is scheduled to visit again on Friday. Wesley states PT and OT have been cancelled for now. Wesley states there are no needs at this time but she does have this worker's contact information and will reach out if needs/questions arise. documented in this encounter [facility] 06-12-2023 Telephone encounter Note Reached out to rodney's daughter/Wesley on this date via phone to check-in and offer support. No answer. Left voicemail requesting return call. [facility] 06-12-2023 Miscellaneous Notes Reached out to rodney's daughter/Wesley on this date via phone to check-in and offer support. No answer. Left voicemail requesting return call. documented in this encounter [facility] 06-11-2023 Telephone encounter Note Follow up phone call made to pt's daughter - no answer. LMOM for pt. To return call. Continue to monitor. Lisa Watters MPA, RDN LD CDCES [facility] 06-11-2023 Miscellaneous Notes Follow up phone call made to pt's daughter - no answer. LMOM for pt. To return call. Continue to monitor. Lisa Watters MPA, RDN LD CDCES documented in this encounter [facility] 06-09-2023 Miscellaneous Notes Standing lab orders to be drawn prior to oncology infusions are pended. documented in this encounter [facility] 06-09-2023 Telephone encounter Note Standing lab orders to be drawn prior to oncology infusions are pended. [facility] 06-04-2023 Telephone encounter Note Received a return call from patient's daughter/Wesley. Spent time connecting with Wesley as she shares about patient's health decline/cancer journey. Wesley states recently patient has declined both physically and cognitively. Patient's is supportive but has health problems of his own also. Wesley states the family needs to look at more support in the home for patient. This worker provided education on [facility] Agency on Aging services and supports. Also provided education on [facility] for Older Adults. Wesley states the family has an agency they have gone through to get assistance for other family members that they may look into using again. This worker e-mailed Wesley a list of private pay home health agencies to [email or web address]. This worker also made a referral to [facility]er Ad[facility] home delivered meal program on patient's behalf. Spoke with Suzanne at [facility] and she said she will contact Wesley regarding their meal program. Wesley has this worker's contact information in case additional needs arise. This worker will continue to follow-up. [facility] 06-04-2023 Miscellaneous Notes Received a return call from patient's daughter/Wesley. Spent time connecting with Wesley as she shares about patient's health decline/cancer journey. Wesley states recently patient has declined both physically and cognitively. Patient's is supportive but has health problems of his own also. Wesley states the family needs to look at more support in the home for patient. This worker provided education on [facility] on Aging services and supports. Also provided education on [facility] Old[facility] Ad[facility]. Wesley states the family has an agency they have gone through to get assistance for other family members that they may look into using again. This worker e-mailed Wesley a list of private pay home health agencies to [email or web address]. This worker also made a referral to [facility] home delivered meal program on patient's behalf. Spoke with Suzanne at [facility] and she said she will contact Wesley regarding their meal program. Wesley has this worker's contact information in case additional needs arise. This worker will continue to follow-up. documented in this encounter [facility] 06-03-2023 Telephone encounter Note Received referral from Cathy Quiñones RN to connect with patient's family regarding options for increased help at home. Reached out to patient's daughter/Wesley on this date via phone. No answer. Left voicemail requesting return call. [facility] 06-03-2023 Miscellaneous Notes Received referral from Cathy Quiñones RN to connect with patient's family regarding options for increased help at home. Reached out to patient's daughter/Wesley on this date via phone. No answer. Left voicemail requesting return call. documented in this encounter [facility] 06-03-2023 Telephone encounter Note Venous duplex pended to be signed [facility] 06-03-2023 Miscellaneous Notes Venous duplex pended to be signed documented in this encounter [facility] 06-03-2023 History of Present illness Narrative Hematology/Oncology Office Visit Oncology History: 1) stage 1A left breast cancer, invasive ductal carcinoma grade 3. ER+ WV+ HER2+. cT1b N0 M0; pT1c N0 M0, diagnosed 01/28/23. - Patient is a 78 yo F who presented with an abnormal screening mammogram of the upper outer quadrant of the left breast on 11/27/22. Diagnostic imaging and ultrasound were performed on 01/21/2023: a 0.9 x 0.9 x 1 cm irregular mass in the left breast. Biopsy was performed at [facility] on 01/28/2023 confirming grade 3 invasive ductal carcinoma ER positive 100%, WV positive 70% and HER2 positive at 3+. The patient underwent lumpectomy and sentinel node removal on 02/18/[address] Choi at [facility]: pathology revealed grade 3 invasive ductal carcinoma measuring 1.9 cm. There was focal DCIS and extensive lymphovascular invasion. Margins were negative for invasive and in situ component at greater than 2 mm. 6 axillary nodes were removed: 5 sentinel and 1 nonsentinel. All were negative. Pathologically staged T1CN0. - she was referred to [facility] for medical and radiation oncology. Her case was reviewed at our tumor board and adjuvant chemotherapy, radiation, and AI therapy were recommended. She started weekly taxol and herceptin on 04/01/23. She required a 25% reduction in Taxol for cycle 3 due to neutropenia. HPI: Madiha Perales is a 78 y.o. female who comes in today for cycle 9 of weekly taxol and herceptin. She is accompanied by her and daughter. She is not feeling well today. Her family reports she fell twice at home over the past several days. PO intake has been poor. She has had loose stools and diarrhea at times. Appetite has been poor. No fevers or chills. No cough, chest pain, shortness of breath, dysuria. She is hypotensive here in clinic and after 1L of IVF, her BP modestly improved. Her left LE is swollen and warm to touch, with pain in the calf as well. Recall, patient has Parkinson's and had a stroke a few years ago, but is generally doing well at home. She is active the majority of the day and continues to take care of the house. She does have some mild expressive aphasia. Past Medical History: Diagnosis Date Allergic rhinitis Anxiety Back pain Lower back pain Breast calcifications on mammogram Dementia ([facility]) Depression Eczema H/O colonoscopy Hemorrhoid Hx of rosacea Lower extremity edema MARCY (obstructive sleep apnea) The patient wears CPAP Parkinson disease Stroke ([facility]) 2009 Torn meniscus Uterine cancer ([facility]) ([facility]) 2005 Past Surgical History: Procedure Laterality Date BREAST LUMPECTOMY 02/18/2023 Left breast Lumpectomy and sentinel lymph node biopsy BREAST LUMPECTOMY Left 2014 Benign left breast lumpectomy CATARACT EXTRACTION, BILATERAL 2012 Bilateral cataract surgery HYSTERECTOMY 2006 Total Hysterectomy KNEE ARTHROSCOPY Right Patient Active Problem List Diagnosis Date Noted Memory loss 03/18/2023 Pigmented skin lesion suspicious for malignant neoplasm 03/18/2023 Malignant neoplasm of upper-outer quadrant of left breast in female, estrogen receptor positive ([facility]) 03/18/2023 Edema of both lower extremities 02/05/2023 Parkinsonism 02/05/2023 Allergic reaction to bee sting 10/29/2022 Allergic rhinitis 10/29/2022 Eczema 10/29/2022 Eczema 10/29/2022 Elevated TSH 10/29/2022 External hemorrhoids 10/29/2022 Hair loss 10/29/2022 Low back pain 10/29/2022 Menopausal state 10/29/2022 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HCC) 10/29/2022 Mixed anxiety depressive disorder 10/29/2022 Obesity (BMI 30.0-34.9) 10/29/2022 Obstructive sleep apnea syndrome 10/29/2022 Falling 10/29/2022 Seborrheic keratosis 10/29/2022 Rosacea, acne 10/15/2022 Hemangioma of skin and subcutaneous tissue 04/24/2016 Breast calcifications on mammogram 07/24/2013 Cerebrovascular accident (CVA) ([facility]) 06/23/2009 Social History Tobacco Use Smoking status: Never Smokeless tobacco: Never Vaping Use Vaping Use: Never used Substance Use Topics Alcohol use: Not Currently Drug use: Never Family History Problem Relation Name Age of Onset Breast cancer Mother Lung cancer Father Colon cancer Paternal Grandfather Allergies Allergen Reactions Alendronate Unknown and Other Cephalexin Unknown Dye [Gadolinium] Escitalopram Other and Unknown Iodine Other reaction(s): Hives and/or rash Nickel Unknown Penicillins Unknown Other reaction(s): Intolerance-unknown Pregabalin Unknown Salicylates Other and Unknown D/t HX of CVA Iodinated Contrast Media Hives Hives x 5 locations, redness of right eye. Current Outpatient Medications Medication Sig Dispense Refill carbidopa-levodopa (Sinemet) 25-100 MG tablet every 8 hours. dexAMETHasone (Decadron) 4 MG tablet Take 1 tablet (4 mg) by mouth in the morning and 1 tablet (4 mg) in the evening. Take with meals. Do all this for 1 day. Take 6 hours and 12 hours prior to first cycle of chemotherapy.. 2 tablet 0 DULoxetine (Cymbalta) [address] capsule Take 1 capsule (20 mg) by mouth once daily. loratadine (Claritin) 10 MG tablet Take 10 mg by mouth daily. memantine (Namenda) 5 MG tablet Take 1 tablet by mouth daily. MULTIPLE VITAMIN PO Take 1 capsule by mouth in the morning. psyllium (Metamucil) 28.3 % powder Take 3.4 g of fiber by mouth daily. No current facility-administered medications for this visit. Facility-Administered Medications Ordered in Other Visits Medication Dose Route Frequency Provider Last Rate Last Admin sodium chloride 0.9 % infusion 500 mL/hr IntraVENous Continuous Stevie Sam Escobedo, DO 500 mL/hr at 06/03/23 1236 500 mL/hr at 06/03/23 1236 Review of Systems Constitutional: Positive for fatigue. Negative for appetite change, chills, diaphoresis, fever and unexpected weight change. HENT: Negative for dental problem, mouth sores, nosebleeds, sneezing, sore throat, tinnitus, trouble swallowing and voice change. Eyes: Negative for photophobia, pain and visual disturbance. Respiratory: Negative for cough, shortness of breath and wheezing. Cardiovascular: Negative for chest pain, palpitations and leg swelling. Gastrointestinal: Negative for abdominal distention, abdominal pain, blood in stool, constipation, diarrhea, nausea and vomiting. Endocrine: Negative for cold intolerance and heat intolerance. Genitourinary: Negative for difficulty urinating, frequency, hematuria and urgency. Musculoskeletal: Negative for arthralgias, back pain, gait problem and myalgias. Skin: Negative for pallor and rash. Allergic/Immunologic: Negative for immunocompromised state. Neurological: Positive for speech difficulty and weakness. Negative for dizziness, syncope, light-headedness, numbness and headaches. Hematological: Negative for adenopathy. Does not bruise/bleed easily. Psychiatric/Behavioral: Negative for confusion and sleep disturbance. The patient is not nervous/anxious. All other systems reviewed and are negative. Vitals: 06/03/23 1011 BP: 86/58 BP Location: Right arm Patient Position: Sitting Pulse: 101 Temp: 36.4 C (97.5 F) TempSrc: Temporal SpO2: 95% Height: 1.651 m (5' 5) ECOG PS = 2 Physical Exam Vitals and nursing note reviewed. Constitutional: General: She is not in acute distress. Appearance: Normal appearance. She is not ill-appearing. HENT: Head: Normocephalic and atraumatic. Nose: Nose normal. Mouth/Throat: Pharynx: Oropharynx is clear. No oropharyngeal exudate or posterior oropharyngeal erythema. Eyes: General: No scleral icterus. Extraocular Movements: Extraocular movements intact. Conjunctiva/sclera: Conjunctivae normal. Pupils: Pupils are equal, round, and reactive to light. Cardiovascular: Rate and Rhythm: Normal rate and regular rhythm. Heart sounds: Normal heart sounds. No murmur heard. Pulmonary: Effort: Pulmonary effort is normal. No respiratory distress. Breath sounds: Normal breath sounds. No wheezing. Abdominal: General: Abdomen is flat. Bowel sounds are normal. There is no distension. Palpations: Abdomen is soft. There is no mass. Tenderness: There is no abdominal tenderness. There is no guarding. Musculoskeletal: General: No swelling or tenderness. Normal range of motion. Cervical back: Normal range of motion and neck supple. Right lower leg: No edema. Left lower leg: Edema present. Lymphadenopathy: Cervical: No cervical adenopathy. Skin: General: Skin is warm and dry. Findings: No bruising or rash. Neurological: Mental Status: She is alert and oriented to person, place, and time. Mental status is at baseline. Motor: Weakness present. Psychiatric: Mood and Affect: Mood normal. Thought Content: Thought content normal. Imaging/Labs: Infusion on 06/03/2023 Component Date Value Ref Range Status SODIUM 06/03/2023 134 (L) 135 - 145 mmol/L Final POTASSIUM 06/03/2023 4.5 3.5 - 5.1 mmol/L Final CHLORIDE 06/03/2023 100 98 - 107 mmol/L Final CARBON DIOXIDE 06/03/2023 22 22 - 30 mmol/L Final ANION GAP 06/03/2023 12 3 - 13 mmol/L Final UREA NITROGEN 06/03/2023 12 7 - 17 mg/dL Final CREATININE 06/03/2023 0.74 0.52 - 1.04 mg/dL Final GLUCOSE 06/03/2023 146 (H) 70 - 100 mg/dL Final CALCIUM 06/03/2023 8.8 8.4 - 10.4 mg/dL Final AST (SGOT) 06/03/2023 45 15 - 46 U/L Final ALT 06/03/2023 24 0 - 34 U/L Final ALKALINE PHOSPHATASE 06/03/2023 79 38 - 126 U/L Final ALBUMIN 06/03/2023 3.9 3.5 - 5.0 g/dL Final BILIRUBIN, TOTAL 06/03/2023 0.8 0.2 - 1.3 mg/dL Final TOTAL PROTEIN 06/03/2023 7.0 6.3 - 8.2 g/dL Final eGFR 06/03/2023 83.4 >60.0 mL/min/1.73m*2 Final Calculation based on the Chronic Kidney Disease Epidemiology Collaboration (CKD-EPI) equation refit without adjustment for race Auto WBC 06/03/2023 6.9 3.6 - 10.7 10*3/uL Final RBC 06/03/2023 4.13 3.8 - 5.20 10*6/uL Final Hemoglobin 06/03/2023 12.9 11.7 - 16.0 g/dL Final Hematocrit 06/03/2023 38.2 35.0 - 47.0 % Final MCV 06/03/2023 92.5 80.0 - 98.0 fL Final MCH 06/03/2023 31.2 26.0 - 34.0 pg Final MCHC 06/03/2023 33.8 32.0 - 36.0 % Final RDW 06/03/2023 15.8 (H) 11.5 - 14.5 % Final Platelets 06/03/2023 251 140 - 440 10*3/uL Final MPV 06/03/2023 9.6 7.4 - 12.4 fL Final MPV is a calculated measurement using platelet volume ratio Neutrophils Relative 06/03/2023 83.4 (H) 40.0 - 80.0 % Final Lymphocytes Relative 06/03/2023 6.2 (L) 20.0 - 40.0 % Final Monocytes Relative 06/03/2023 6.7 2.0 - 10.0 % Final Eosinophils Relative 06/03/2023 0.9 (L) 1.0 - 6.0 % Final Basophils Relative 06/03/2023 0.9 0.0 - 2.0 % Final Immature Grans % 06/03/2023 1.9 (H) <=0.0 % Final Neutrophils Absolute 06/03/2023 5.8 1.8 - 7.0 10*3/uL Final Lymphocytes Absolute 06/03/2023 0.4 (L) 1.0 - 4.3 10*3/uL Final Monocytes Absolute 06/03/2023 0.5 0.0 - 0.8 10*3/uL Final Eosinophils Absolute 06/03/2023 0.1 0.0 - 0.5 10*3/uL Final Basophils Absolute 06/03/2023 0.1 0.0 - 0.2 10*3/uL Final Immature Grans Absolute 06/03/2023 0.1 (H) <=0.0 10*3/uL Final Infusion on 05/27/2023 Component Date Value Ref Range Status SODIUM 05/27/2023 135 135 - 145 mmol/L Final POTASSIUM 05/27/2023 3.7 3.5 - 5.1 mmol/L Final CHLORIDE 05/27/2023 103 98 - 107 mmol/L Final CARBON DIOXIDE 05/27/2023 24 22 - 30 mmol/L Final ANION GAP 05/27/2023 9 3 - 13 mmol/L Final UREA NITROGEN 05/27/2023 12 7 - 17 mg/dL Final CREATININE 05/27/2023 0.54 0.52 - 1.04 mg/dL Final GLUCOSE 05/27/2023 131 (H) 70 - 100 mg/dL Final CALCIUM 05/27/2023 8.8 8.4 - 10.4 mg/dL Final AST (SGOT) 05/27/2023 33 15 - 46 U/L Final ALT 05/27/2023 20 0 - 34 U/L Final ALKALINE PHOSPHATASE 05/27/2023 81 38 - 126 U/L Final ALBUMIN 05/27/2023 4.0 3.5 - 5.0 g/dL Final BILIRUBIN, TOTAL 05/27/2023 0.6 0.2 - 1.3 mg/dL Final TOTAL PROTEIN 05/27/2023 6.7 6.3 - 8.2 g/dL Final eGFR 05/27/2023 >90.0 >60.0 mL/min/1.73m*2 Final Calculation based on the Chronic Kidney Disease Epidemiology Collaboration (CKD-EPI) equation refit without adjustment for race Auto WBC 05/27/2023 5.3 3.6 - 10.7 10*3/uL Final RBC 05/27/2023 4.15 3.8 - 5.20 10*6/uL Final Hemoglobin 05/27/2023 13.1 11.7 - 16.0 g/dL Final Hematocrit 05/27/2023 38.5 35.0 - 47.0 % Final MCV 05/27/2023 92.8 80.0 - 98.0 fL Final MCH 05/27/2023 31.6 26.0 - 34.0 pg Final MCHC 05/27/2023 34.0 32.0 - 36.0 % Final RDW 05/27/2023 15.8 (H) 11.5 - 14.5 % Final Platelets 05/27/2023 226 140 - 440 10*3/uL Final MPV 05/27/2023 9.5 7.4 - 12.4 fL Final MPV is a calculated measurement using platelet volume ratio Neutrophils Relative 05/27/2023 74.9 40.0 - 80.0 % Final Lymphocytes Relative 05/27/2023 12.7 (L) 20.0 - 40.0 % Final Monocytes Relative 05/27/2023 7.8 2.0 - 10.0 % Final Eosinophils Relative 05/27/2023 1.7 1.0 - 6.0 % Final Basophils Relative 05/27/2023 0.8 0.0 - 2.0 % Final Immature Grans % 05/27/2023 2.1 (H) <=0.0 % Final Neutrophils Absolute 05/27/2023 4.0 1.8 - 7.0 10*3/uL Final Lymphocytes Absolute 05/27/2023 0.7 (L) 1.0 - 4.3 10*3/uL Final Monocytes Absolute 05/27/2023 0.4 0.0 - 0.8 10*3/uL Final Eosinophils Absolute 05/27/2023 0.1 0.0 - 0.5 10*3/uL Final Basophils Absolute 05/27/2023 0.0 0.0 - 0.2 10*3/uL Final Immature Grans Absolute 05/27/2023 0.1 (H) <=0.0 10*3/uL Final Infusion on 05/20/2023 Component Date Value Ref Range Status SODIUM 05/20/2023 136 135 - 145 mmol/L Final POTASSIUM 05/20/2023 4.3 3.5 - 5.1 mmol/L Final CHLORIDE 05/20/2023 106 98 - 107 mmol/L Final CARBON DIOXIDE 05/20/2023 23 22 - 30 mmol/L Final ANION GAP 05/20/2023 7 3 - 13 mmol/L Final UREA NITROGEN 05/20/2023 21 (H) 7 - 17 mg/dL Final CREATININE 05/20/2023 0.62 0.52 - 1.04 mg/dL Final GLUCOSE 05/20/2023 115 (H) 70 - 100 mg/dL Final CALCIUM 05/20/2023 8.9 8.4 - 10.4 mg/dL Final AST (SGOT) 05/20/2023 46 15 - 46 U/L Final ALT 05/20/2023 42 (H) 0 - 34 U/L Final ALKALINE PHOSPHATASE 05/20/2023 81 38 - 126 U/L Final ALBUMIN 05/20/2023 4.4 3.5 - 5.0 g/dL Final BILIRUBIN, TOTAL 05/20/2023 0.7 0.2 - 1.3 mg/dL Final TOTAL PROTEIN 05/20/2023 7.5 6.3 - 8.2 g/dL Final eGFR 05/20/2023 >90.0 >60.0 mL/min/1.73m*2 Final Calculation based on the Chronic Kidney Disease Epidemiology Collaboration (CKD-EPI) equation refit without adjustment for race Auto WBC 05/20/2023 5.5 3.6 - 10.7 10*3/uL Final RBC 05/20/2023 4.33 3.8 - 5.20 10*6/uL Final Hemoglobin 05/20/2023 13.8 11.7 - 16.0 g/dL Final Hematocrit 05/20/2023 40.1 35.0 - 47.0 % Final MCV 05/20/2023 92.6 80.0 - 98.0 fL Final MCH 05/20/2023 31.9 26.0 - 34.0 pg Final MCHC 05/20/2023 34.4 32.0 - 36.0 % Final RDW 05/20/2023 15.3 (H) 11.5 - 14.5 % Final Platelets 05/20/2023 237 140 - 440 10*3/uL Final MPV 05/20/2023 9.8 7.4 - 12.4 fL Final MPV is a calculated measurement using platelet volume ratio Neutrophils Relative 05/20/2023 79.3 40.0 - 80.0 % Final Lymphocytes Relative 05/20/2023 11.6 (L) 20.0 - 40.0 % Final Monocytes Relative 05/20/2023 5.8 2.0 - 10.0 % Final Eosinophils Relative 05/20/2023 1.1 1.0 - 6.0 % Final Basophils Relative 05/20/2023 0.7 0.0 - 2.0 % Final Immature Grans % 05/20/2023 1.5 (H) <=0.0 % Final Neutrophils Absolute 05/20/2023 4.4 1.8 - 7.0 10*3/uL Final Lymphocytes Absolute 05/20/2023 0.6 (L) 1.0 - 4.3 10*3/uL Final Monocytes Absolute 05/20/2023 0.3 0.0 - 0.8 10*3/uL Final Eosinophils Absolute 05/20/2023 0.1 0.0 - 0.5 10*3/uL Final Basophils Absolute 05/20/2023 0.0 0.0 - 0.2 10*3/uL Final Immature Grans Absolute 05/20/2023 0.1 (H) <=0.0 10*3/uL Final Infusion on 05/13/2023 Component Date Value Ref Range Status SODIUM 05/13/2023 137 135 - 145 mmol/L Final POTASSIUM 05/13/2023 3.6 3.5 - 5.1 mmol/L Final CHLORIDE 05/13/2023 105 98 - 107 mmol/L Final CARBON DIOXIDE 05/13/2023 24 22 - 30 mmol/L Final ANION GAP 05/13/2023 8 3 - 13 mmol/L Final UREA NITROGEN 05/13/2023 19 (H) 7 - 17 mg/dL Final CREATININE 05/13/2023 0.72 0.52 - 1.04 mg/dL Final GLUCOSE 05/13/2023 150 (H) 70 - 100 mg/dL Final CALCIUM 05/13/2023 8.5 8.4 - 10.4 mg/dL Final AST (SGOT) 05/13/2023 37 15 - 46 U/L Final ALT 05/13/2023 36 (H) 0 - 34 U/L Final ALKALINE PHOSPHATASE 05/13/2023 89 38 - 126 U/L Final ALBUMIN 05/13/2023 4.0 3.5 - 5.0 g/dL Final BILIRUBIN, TOTAL 05/13/2023 0.5 0.2 - 1.3 mg/dL Final TOTAL PROTEIN 05/13/2023 6.7 6.3 - 8.2 g/dL Final eGFR 05/13/2023 86.2 >60.0 mL/min/1.73m*2 Final Calculation based on the Chronic Kidney Disease Epidemiology Collaboration (CKD-EPI) equation refit without adjustment for race Auto WBC 05/13/2023 5.1 3.6 - 10.7 10*3/uL Final RBC 05/13/2023 4.13 3.8 - 5.20 10*6/uL Final Hemoglobin 05/13/2023 12.9 11.7 - 16.0 g/dL Final Hematocrit 05/13/2023 38.6 35.0 - 47.0 % Final MCV 05/13/2023 93.5 80.0 - 98.0 fL Final MCH 05/13/2023 31.2 26.0 - 34.0 pg Final MCHC 05/13/2023 33.4 32.0 - 36.0 % Final RDW 05/13/2023 14.9 (H) 11.5 - 14.5 % Final Platelets 05/13/2023 218 140 - 440 10*3/uL Final MPV 05/13/2023 9.9 7.4 - 12.4 fL Final MPV is a calculated measurement using platelet volume ratio Neutrophils Relative 05/13/2023 75.4 40.0 - 80.0 % Final Lymphocytes Relative 05/13/2023 17.0 (L) 20.0 - 40.0 % Final Monocytes Relative 05/13/2023 3.2 2.0 - 10.0 % Final Eosinophils Relative 05/13/2023 1.8 1.0 - 6.0 % Final Basophils Relative 05/13/2023 1.0 0.0 - 2.0 % Final Immature Grans % 05/13/2023 1.6 (H) <=0.0 % Final Neutrophils Absolute 05/13/2023 3.8 1.8 - 7.0 10*3/uL Final Lymphocytes Absolute 05/13/2023 0.9 (L) 1.0 - 4.3 10*3/uL Final Monocytes Absolute 05/13/2023 0.2 0.0 - 0.8 10*3/uL Final Eosinophils Absolute 05/13/2023 0.1 0.0 - 0.5 10*3/uL Final Basophils Absolute 05/13/2023 0.1 0.0 - 0.2 10*3/uL Final Immature Grans Absolute 05/13/2023 0.1 (H) <=0.0 10*3/uL Final Infusion on 05/06/2023 Component Date Value Ref Range Status SODIUM 05/06/2023 139 135 - 145 mmol/L Final POTASSIUM 05/06/2023 3.8 3.5 - 5.1 mmol/L Final CHLORIDE 05/06/2023 105 98 - 107 mmol/L Final CARBON DIOXIDE 05/06/2023 24 22 - 30 mmol/L Final ANION GAP 05/06/2023 9 3 - 13 mmol/L Final UREA NITROGEN 05/06/2023 22 (H) 7 - 17 mg/dL Final CREATININE 05/06/2023 0.61 0.52 - 1.04 mg/dL Final GLUCOSE 05/06/2023 125 (H) 70 - 100 mg/dL Final CALCIUM 05/06/2023 8.6 8.4 - 10.4 mg/dL Final AST (SGOT) 05/06/2023 36 15 - 46 U/L Final ALT 05/06/2023 40 (H) 0 - 34 U/L Final ALKALINE PHOSPHATASE 05/06/2023 80 38 - 126 U/L Final ALBUMIN 05/06/2023 3.9 3.5 - 5.0 g/dL Final BILIRUBIN, TOTAL 05/06/2023 0.5 0.2 - 1.3 mg/dL Final TOTAL PROTEIN 05/06/2023 6.7 6.3 - 8.2 g/dL Final eGFR 05/06/2023 >90.0 >60.0 mL/min/1.73m*2 Final Calculation based on the Chronic Kidney Disease Epidemiology Collaboration (CKD-EPI) equation refit without adjustment for race Auto WBC 05/06/2023 4.7 3.6 - 10.7 10*3/uL Final RBC 05/06/2023 4.18 3.8 - 5.20 10*6/uL Final Hemoglobin 05/06/2023 13.0 11.7 - 16.0 g/dL Final Hematocrit 05/06/2023 39.2 35.0 - 47.0 % Final MCV 05/06/2023 93.8 80.0 - 98.0 fL Final MCH 05/06/2023 31.1 26.0 - 34.0 pg Final MCHC 05/06/2023 33.2 32.0 - 36.0 % Final RDW 05/06/2023 14.6 (H) 11.5 - 14.5 % Final Platelets 05/06/2023 184 140 - 440 10*3/uL Final MPV 05/06/2023 10.0 7.4 - 12.4 fL Final MPV is a calculated measurement using platelet volume ratio Neutrophils Relative 05/06/2023 71.2 40.0 - 80.0 % Final Lymphocytes Relative 05/06/2023 18.0 (L) 20.0 - 40.0 % Final Monocytes Relative 05/06/2023 5.4 2.0 - 10.0 % Final Eosinophils Relative 05/06/2023 2.8 1.0 - 6.0 % Final Basophils Relative 05/06/2023 0.9 0.0 - 2.0 % Final Immature Grans % 05/06/2023 1.7 (H) <=0.0 % Final Neutrophils Absolute 05/06/2023 3.3 1.8 - 7.0 10*3/uL Final Lymphocytes Absolute 05/06/2023 0.8 (L) 1.0 - 4.3 10*3/uL Final Monocytes Absolute 05/06/2023 0.3 0.0 - 0.8 10*3/uL Final Eosinophils Absolute 05/06/2023 0.1 0.0 - 0.5 10*3/uL Final Basophils Absolute 05/06/2023 0.0 0.0 - 0.2 10*3/uL Final Immature Grans Absolute 05/06/2023 0.1 (H) <=0.0 10*3/uL Final Imaging Reviewed: as per HPI - I have reviewed all available pertinent laboratory, imaging and pathology results with the patient and/or family members today. Assessment/Plan: Diagnosis Plan 1. Malignant neoplasm of upper-outer quadrant of left breast in female, estrogen receptor positive (HCC) 2. Encounter for monitoring cardiotoxic drug therapy 1) stage 1A left breast cancer ER+/WV+/HER2+ pT1c pN0 cM0 s/p left partial mastectomy and SLNBx to clear margins on 02/18/23 - Today, we again reviewed the diagnosis, staging, natural history, prognosis, and treatment options for her stage 1 left breast cancer. NCCN guidelines were reviewed. Treatment intent is curative. - Due to recent falls at home, hypotension, and failure to thrive, we will discontinue the Taxol (she has completed 8 of the 12 planned weekly doses). - UA today is consistent with a UTI, which could explain her symptoms. Will start Bactrim for 7 days, see orders. Culture pending. - she has received 2L of IVF in clinic today - obtain left LE doppler due to LE swelling and concern for DVT - will proceed with Trastuzumab every 3 weeks to complete 1 year of treatment. See new orders. Potential side effects and anticipated benefits of Trastuzumab were reviewed with the patient and they agreed to proceed with treatment. - After the weekly Taxol is completed, she will proceed with radiation therapy with Dr. Diego. - After radiation therapy is completed, adjuvant endocrine therapy with an AI for 5 years will be recommended. - echo prior to treatment on 03/26/23 with EF 63%. Monitor every 3 months - supportive care. See lab orders with chemotherapy. - consider mediport placement if needed All questions were answered to the satisfaction of the patient and/or family. Return to office in 3 weeks for Trastuzumab, or sooner if worrisome signs/symptoms arise. Stevie Escobedo DO Hematology/Medical Oncology documented in this encounter [facility] 06-03-2023 History of Present illness Narrative Patient arrives as full 2 RN assist from vehicle to WC. Patient reporting symptoms as patient appears more confused than baseline and poor historian. Patient had 2 falls over the weekend,unaware if hit head or had LOC, was recommended by this office to seek care in ED however declined. Per family patient has poor PO intake with 2 episodes of diarrhea/loose stool.Per patient adult daughter patient having a increasing difficulty following commands and noticed weakness after showering with eyes rolling. Vitals obtained. Patient hypotensive. PIV started in R hand, blood for CBC, and CMP obtained and sent to lab. 1 L NS started. Upon assessment patient able to answer questions appropriately with slow response. Hand grasps bilaterally equal. When assessing for edema palpated BLE, LLE edema present and patient expressed pain on LLE upon palpation. B pedal pulses present. 1041- Patient and family having OV with Dr. Escobedo. New order received for venous duplex LLE and UACNS to r/o infection.D/C chemotherapy. Patient to resume Trazimera in 3 weeks if symptoms resolve.Kerri Bauer RN updated pink sheet.Venous duplex schedule for today @ 3pm. 1127- Vitals re obtained sitting and standing, still hypotensive, Neg for orthostatic hypotension at this time.2 RN assist via WC to BR for attempted collection of urine specimen. Patient unable to urinate at this time. Staff message sent to [employer] and breast worker for additional resources and possible in home assistance with ADL's. Family aware and agreeable. Vitals obtained. Patient remains hypotensive with improvement. New order received for 2nd liter NS. Also physician verbalized if patient remains hypotensive it is still her recommendation to seek care in ED. Staff assist to BR. Patient able to urinate. Urine sample provided to lab for UA. Patient resting with eyes closed after returning to chair. Physician reviewed UA, new order received for PO ATB for UTI. Orders pended to be signed. 1418- Patient assisted to BR via WC. Patient appears more alert. Patient assisted by RN's back to chair. Patient eating lunch. Patient completed second liter IVF. Vitals stable. Patient alert , awake and eating. PIV d/c'd. New calendar for IV hydration for Dec and New Trazimera Moises calendar provided to patient and daughter. Patient assisted to WC and wheeled to registration at front of building for venous duplex. documented in this encounter [email or web address] 05-27-2023 History of Present illness Narrative Patient arrived ambulatory for cycle 8 day 1 of weekly Taxol and Tecentrique. PIV was established in right forearm. CBC and CMP were drawn and taken to lab. 1531 Patient discharged ambulatory. No PIV related issues occurred during treatment. Patient knows when next appointment is and has copy of schedule. Patient had no further questions or concerns at this time. documented in this encounter [email or web address] 05-27-2023 Telephone encounter Note At check-in patient stated that insurance will remain the same in the upcoming year. [facility] 05.27.23 ES [email or web address] 05-27-2023 Miscellaneous Notes At check-in patient stated that insurance will remain the same in the upcoming year. [facility] 05.27.23 ES documented in this encounter [email or web address] 05-23-2023 History of Present illness Narrative Patient arrived ambulatory for hydration, 3 days post- treatment of Taxol and Trazimera. No labs were ordered at this time. PIV was established and 1000 ml NS bolus was initiated 1108 Patient discharged ambulatory. Patient had no PIV related complications, PIV was removed, gauze and coban applied. Patient is aware of next scheduled appointment and had no further questions or concerns at this time documented in this encounter [facility] 05-20-2023 History of Present illness Narrative Hematology/Oncology Office Visit Oncology History: 1) stage 1A left breast cancer, invasive ductal carcinoma grade 3. ER+ WV+ HER2+. cT1b N0 M0; pT1c N0 M0, diagnosed 01/28/23. - Patient is a 78 yo F who presented with an abnormal screening mammogram of the upper outer quadrant of the left breast on 11/27/22. Diagnostic imaging and ultrasound were performed on 01/21/2023: a 0.9 x 0.9 x 1 cm irregular mass in the left breast. Biopsy was performed at [facility] on 01/28/2023 confirming grade 3 invasive ductal carcinoma ER positive 100%, WV positive 70% and HER2 positive at 3+. The patient underwent lumpectomy and sentinel node removal on 02/18/[address] Choi at [facility]: pathology revealed grade 3 invasive ductal carcinoma measuring 1.9 cm. There was focal DCIS and extensive lymphovascular invasion. Margins were negative for invasive and in situ component at greater than 2 mm. 6 axillary nodes were removed: 5 sentinel and 1 nonsentinel. All were negative. Pathologically staged [id number]. - she was referred to [facility] for medical and radiation oncology. Her case was reviewed at our tumor board and adjuvant chemotherapy, radiation, and AI therapy were recommended. She started weekly taxol and herceptin on 04/01/23. She required a 25% reduction in Taxol for cycle 3 due to neutropenia. HPI: Madiha Perales is a 78 y.o. female who comes in today for cycle 7 of weekly taxol and herceptin. She is accompanied by her and daughter. She continues to do well with chemotherapy and is tolerating it much better since the 25% reduction in the Taxol. No further falls at home. Appetite is good. No weight loss. Mild neuropathy for a few days but not interfering with ADLs. No fevers, chills or infections. No nausea or diarrhea. Recall, patient has Parkinson's and had a stroke a few years ago, but is generally doing well at home. She is active the majority of the day and continues to take care of the house. She does have some mild expressive aphasia. She has a good appetite. +fatigue. No weight loss or bone pain. No headaches, chest pain, or shortness of breath. Past Medical History: Diagnosis Date Allergic rhinitis Anxiety Back pain Lower back pain Breast calcifications on mammogram Dementia ([facility]) Depression Eczema H/O colonoscopy Hemorrhoid Hx of rosacea Lower extremity edema MARCY (obstructive sleep apnea) The patient wears CPAP Parkinson disease Stroke ([facility]) 2009 Torn meniscus Uterine cancer ([facility]) ([facility]) 2005 Past Surgical History: Procedure Laterality Date BREAST LUMPECTOMY 02/18/2023 Left breast Lumpectomy and sentinel lymph node biopsy BREAST LUMPECTOMY Left 2013 Benign left breast lumpectomy CATARACT EXTRACTION, BILATERAL 2012 Bilateral cataract surgery HYSTERECTOMY 2006 Total Hysterectomy KNEE ARTHROSCOPY Right Patient Active Problem List Diagnosis Date Noted Memory loss 03/18/2023 Pigmented skin lesion suspicious for malignant neoplasm 03/18/2023 Malignant neoplasm of upper-outer quadrant of left breast in female, estrogen receptor positive ([facility]) 03/18/2023 Edema of both lower extremities 02/05/2023 Parkinsonism 02/05/2023 Allergic reaction to bee sting 10/29/2022 Allergic rhinitis 10/29/2022 Eczema 10/29/2022 Eczema 10/29/2022 Elevated TSH 10/29/2022 External hemorrhoids 10/29/2022 Hair loss 10/29/2022 Low back pain 10/29/2022 Menopausal state 10/29/2022 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HCC) 10/29/2022 Mixed anxiety depressive disorder 10/29/2022 Obesity (BMI 30.0-34.9) 10/29/2022 Obstructive sleep apnea syndrome 10/29/2022 Falling 10/29/2022 Seborrheic keratosis 10/29/2022 Rosacea, acne 10/15/2022 Hemangioma of skin and subcutaneous tissue 04/24/2016 Breast calcifications on mammogram 07/24/2013 Cerebrovascular accident (CVA) ([facility]) 06/23/2009 Social History Tobacco Use Smoking status: Never Smokeless tobacco: Never Vaping Use Vaping Use: Never used Substance Use Topics Alcohol use: Not Currently Drug use: Never Family History Problem Relation Name Age of Onset Breast cancer Mother Lung cancer Father Colon cancer Paternal Grandfather Allergies Allergen Reactions Alendronate Unknown and Other Cephalexin Unknown Dye [Gadolinium] Escitalopram Other and Unknown Iodine Other reaction(s): Hives and/or rash Nickel Unknown Penicillins Unknown Other reaction(s): Intolerance-unknown Pregabalin Unknown Salicylates Other and Unknown D/t HX of CVA Iodinated Contrast Media Hives Hives x 5 locations, redness of right eye. Current Outpatient Medications Medication Sig Dispense Refill carbidopa-levodopa (Sinemet) 25-100 MG tablet every 8 hours. dexAMETHasone (Decadron) 4 MG tablet Take 1 tablet (4 mg) by mouth in the morning and 1 tablet (4 mg) in the evening. Take with meals. Do all this for 1 day. Take 6 hours and 12 hours prior to first cycle of chemotherapy.. 2 tablet 0 DULoxetine (Cymbalta) [address] capsule Take 1 capsule (20 mg) by mouth once daily. loratadine (Claritin) 10 MG tablet Take 10 mg by mouth daily. memantine (Namenda) 5 MG tablet Take 1 tablet by mouth daily. MULTIPLE VITAMIN PO Take 1 capsule by mouth in the morning. prochlorperazine (Compazine) 10 MG tablet Take 1 tablet (10 mg) by mouth every 6 hours as needed for nausea. 90 tablet 1 psyllium (Metamucil) 28.3 % powder Take 3.4 g of fiber by mouth daily. No current facility-administered medications for this visit. Review of Systems Constitutional: Positive for fatigue. Negative for appetite change, chills, diaphoresis, fever and unexpected weight change. HENT: Negative for dental problem, mouth sores, nosebleeds, sneezing, sore throat, tinnitus, trouble swallowing and voice change. Eyes: Negative for photophobia, pain and visual disturbance. Respiratory: Negative for cough, shortness of breath and wheezing. Cardiovascular: Negative for chest pain, palpitations and leg swelling. Gastrointestinal: Negative for abdominal distention, abdominal pain, blood in stool, constipation, diarrhea, nausea and vomiting. Endocrine: Negative for cold intolerance and heat intolerance. Genitourinary: Negative for difficulty urinating, frequency, hematuria and urgency. Musculoskeletal: Negative for arthralgias, back pain, gait problem and myalgias. Skin: Negative for pallor and rash. Allergic/Immunologic: Negative for immunocompromised state. Neurological: Positive for speech difficulty and weakness. Negative for dizziness, syncope, light-headedness, numbness and headaches. Hematological: Negative for adenopathy. Does not bruise/bleed easily. Psychiatric/Behavioral: Negative for confusion and sleep disturbance. The patient is not nervous/anxious. All other systems reviewed and are negative. Vitals: 05/20/23 0848 BP: 106/68 BP Location: Right arm Patient Position: Sitting Pulse: 85 Temp: 36.7 C (98 F) TempSrc: Temporal SpO2: 95% Weight: 91.1 kg (200 lb 12.8 oz) Height: 1.651 m (5' 5) ECOG PS = 2 Physical Exam Vitals and nursing note reviewed. Constitutional: General: She is not in acute distress. Appearance: Normal appearance. She is not ill-appearing. HENT: Head: Normocephalic and atraumatic. Nose: Nose normal. Mouth/Throat: Pharynx: Oropharynx is clear. No oropharyngeal exudate or posterior oropharyngeal erythema. Eyes: General: No scleral icterus. Extraocular Movements: Extraocular movements intact. Conjunctiva/sclera: Conjunctivae normal. Pupils: Pupils are equal, round, and reactive to light. Cardiovascular: Rate and Rhythm: Normal rate and regular rhythm. Heart sounds: Normal heart sounds. No murmur heard. Pulmonary: Effort: Pulmonary effort is normal. No respiratory distress. Breath sounds: Normal breath sounds. No wheezing. Abdominal: General: Abdomen is flat. Bowel sounds are normal. There is no distension. Palpations: Abdomen is soft. There is no mass. Tenderness: There is no abdominal tenderness. There is no guarding. Musculoskeletal: General: No swelling or tenderness. Normal range of motion. Cervical back: Normal range of motion and neck supple. Right lower leg: No edema. Left lower leg: No edema. Lymphadenopathy: Cervical: No cervical adenopathy. Skin: General: Skin is warm and dry. Findings: No bruising or rash. Neurological: Mental Status: She is alert and oriented to person, place, and time. Mental status is at baseline. Motor: Weakness present. Psychiatric: Mood and Affect: Mood normal. Thought Content: Thought content normal. Imaging/Labs: Infusion on 05/20/2023 Component Date Value Ref Range Status SODIUM 05/20/2023 136 135 - 145 mmol/L Final POTASSIUM 05/20/2023 4.3 3.5 - 5.1 mmol/L Final CHLORIDE 05/20/2023 106 98 - 107 mmol/L Final CARBON DIOXIDE 05/20/2023 23 22 - 30 mmol/L Final ANION GAP 05/20/2023 7 3 - 13 mmol/L Final UREA NITROGEN 05/20/2023 21 (H) 7 - 17 mg/dL Final CREATININE 05/20/2023 0.62 0.52 - 1.04 mg/dL Final GLUCOSE 05/20/2023 115 (H) 70 - 100 mg/dL Final CALCIUM 05/20/2023 8.9 8.4 - 10.4 mg/dL Final AST (SGOT) 05/20/2023 46 15 - 46 U/L Final ALT 05/20/2023 42 (H) 0 - 34 U/L Final ALKALINE PHOSPHATASE 05/20/2023 81 38 - 126 U/L Final ALBUMIN 05/20/2023 4.4 3.5 - 5.0 g/dL Final BILIRUBIN, TOTAL 05/20/2023 0.7 0.2 - 1.3 mg/dL Final TOTAL PROTEIN 05/20/2023 7.5 6.3 - 8.2 g/dL Final eGFR 05/20/2023 >90.0 >60.0 mL/min/1.73m*2 Final Calculation based on the Chronic Kidney Disease Epidemiology Collaboration (CKD-EPI) equation refit without adjustment for race Auto WBC 05/20/2023 5.5 3.6 - 10.7 10*3/uL Final RBC 05/20/2023 4.33 3.8 - 5.20 10*6/uL Final Hemoglobin 05/20/2023 13.8 11.7 - 16.0 g/dL Final Hematocrit 05/20/2023 40.1 35.0 - 47.0 % Final MCV 05/20/2023 92.6 80.0 - 98.0 fL Final MCH 05/20/2023 31.9 26.0 - 34.0 pg Final MCHC 05/20/2023 34.4 32.0 - 36.0 % Final RDW 05/20/2023 15.3 (H) 11.5 - 14.5 % Final Platelets 05/20/2023 237 140 - 440 10*3/uL Final MPV 05/20/2023 9.8 7.4 - 12.4 fL Final MPV is a calculated measurement using platelet volume ratio Neutrophils Relative 05/20/2023 79.3 40.0 - 80.0 % Final Lymphocytes Relative 05/20/2023 11.6 (L) 20.0 - 40.0 % Final Monocytes Relative 05/20/2023 5.8 2.0 - 10.0 % Final Eosinophils Relative 05/20/2023 1.1 1.0 - 6.0 % Final Basophils Relative 05/20/2023 0.7 0.0 - 2.0 % Final Immature Grans % 05/20/2023 1.5 (H) <=0.0 % Final Neutrophils Absolute 05/20/2023 4.4 1.8 - 7.0 10*3/uL Final Lymphocytes Absolute 05/20/2023 0.6 (L) 1.0 - 4.3 10*3/uL Final Monocytes Absolute 05/20/2023 0.3 0.0 - 0.8 10*3/uL Final Eosinophils Absolute 05/20/2023 0.1 0.0 - 0.5 10*3/uL Final Basophils Absolute 05/20/2023 0.0 0.0 - 0.2 10*3/uL Final Immature Grans Absolute 05/20/2023 0.1 (H) <=0.0 10*3/uL Final Infusion on 05/13/2023 Component Date Value Ref Range Status SODIUM 05/13/2023 137 135 - 145 mmol/L Final POTASSIUM 05/13/2023 3.6 3.5 - 5.1 mmol/L Final CHLORIDE 05/13/2023 105 98 - 107 mmol/L Final CARBON DIOXIDE 05/13/2023 24 22 - 30 mmol/L Final ANION GAP 05/13/2023 8 3 - 13 mmol/L Final UREA NITROGEN 05/13/2023 19 (H) 7 - 17 mg/dL Final CREATININE 05/13/2023 0.72 0.52 - 1.04 mg/dL Final GLUCOSE 05/13/2023 150 (H) 70 - 100 mg/dL Final CALCIUM 05/13/2023 8.5 8.4 - 10.4 mg/dL Final AST (SGOT) 05/13/2023 37 15 - 46 U/L Final ALT 05/13/2023 36 (H) 0 - 34 U/L Final ALKALINE PHOSPHATASE 05/13/2023 89 38 - 126 U/L Final ALBUMIN 05/13/2023 4.0 3.5 - 5.0 g/dL Final BILIRUBIN, TOTAL 05/13/2023 0.5 0.2 - 1.3 mg/dL Final TOTAL PROTEIN 05/13/2023 6.7 6.3 - 8.2 g/dL Final eGFR 05/13/2023 86.2 >60.0 mL/min/1.73m*2 Final Calculation based on the Chronic Kidney Disease Epidemiology Collaboration (CKD-EPI) equation refit without adjustment for race Auto WBC 05/13/2023 5.1 3.6 - 10.7 10*3/uL Final RBC 05/13/2023 4.13 3.8 - 5.20 10*6/uL Final Hemoglobin 05/13/2023 12.9 11.7 - 16.0 g/dL Final Hematocrit 05/13/2023 38.6 35.0 - 47.0 % Final MCV 05/13/2023 93.5 80.0 - 98.0 fL Final MCH 05/13/2023 31.2 26.0 - 34.0 pg Final MCHC 05/13/2023 33.4 32.0 - 36.0 % Final RDW 05/13/2023 14.9 (H) 11.5 - 14.5 % Final Platelets 05/13/2023 218 140 - 440 10*3/uL Final MPV 05/13/2023 9.9 7.4 - 12.4 fL Final MPV is a calculated measurement using platelet volume ratio Neutrophils Relative 05/13/2023 75.4 40.0 - 80.0 % Final Lymphocytes Relative 05/13/2023 17.0 (L) 20.0 - 40.0 % Final Monocytes Relative 05/13/2023 3.2 2.0 - 10.0 % Final Eosinophils Relative 05/13/2023 1.8 1.0 - 6.0 % Final Basophils Relative 05/13/2023 1.0 0.0 - 2.0 % Final Immature Grans % 05/13/2023 1.6 (H) <=0.0 % Final Neutrophils Absolute 05/13/2023 3.8 1.8 - 7.0 10*3/uL Final Lymphocytes Absolute 05/13/2023 0.9 (L) 1.0 - 4.3 10*3/uL Final Monocytes Absolute 05/13/2023 0.2 0.0 - 0.8 10*3/uL Final Eosinophils Absolute 05/13/2023 0.1 0.0 - 0.5 10*3/uL Final Basophils Absolute 05/13/2023 0.1 0.0 - 0.2 10*3/uL Final Immature Grans Absolute 05/13/2023 0.1 (H) <=0.0 10*3/uL Final Infusion on 05/06/2023 Component Date Value Ref Range Status SODIUM 05/06/2023 139 135 - 145 mmol/L Final POTASSIUM 05/06/2023 3.8 3.5 - 5.1 mmol/L Final CHLORIDE 05/06/2023 105 98 - 107 mmol/L Final CARBON DIOXIDE 05/06/2023 24 22 - 30 mmol/L Final ANION GAP 05/06/2023 9 3 - 13 mmol/L Final UREA NITROGEN 05/06/2023 22 (H) 7 - 17 mg/dL Final CREATININE 05/06/2023 0.61 0.52 - 1.04 mg/dL Final GLUCOSE 05/06/2023 125 (H) 70 - 100 mg/dL Final CALCIUM 05/06/2023 8.6 8.4 - 10.4 mg/dL Final AST (SGOT) 05/06/2023 36 15 - 46 U/L Final ALT 05/06/2023 40 (H) 0 - 34 U/L Final ALKALINE PHOSPHATASE 05/06/2023 80 38 - 126 U/L Final ALBUMIN 05/06/2023 3.9 3.5 - 5.0 g/dL Final BILIRUBIN, TOTAL 05/06/2023 0.5 0.2 - 1.3 mg/dL Final TOTAL PROTEIN 05/06/2023 6.7 6.3 - 8.2 g/dL Final eGFR 05/06/2023 >90.0 >60.0 mL/min/1.73m*2 Final Calculation based on the Chronic Kidney Disease Epidemiology Collaboration (CKD-EPI) equation refit without adjustment for race Auto WBC 05/06/2023 4.7 3.6 - 10.7 10*3/uL Final RBC 05/06/2023 4.18 3.8 - 5.20 10*6/uL Final Hemoglobin 05/06/2023 13.0 11.7 - 16.0 g/dL Final Hematocrit 05/06/2023 39.2 35.0 - 47.0 % Final MCV 05/06/2023 93.8 80.0 - 98.0 fL Final MCH 05/06/2023 31.1 26.0 - 34.0 pg Final MCHC 05/06/2023 33.2 32.0 - 36.0 % Final RDW 05/06/2023 14.6 (H) 11.5 - 14.5 % Final Platelets 05/06/2023 184 140 - 440 10*3/uL Final MPV 05/06/2023 10.0 7.4 - 12.4 fL Final MPV is a calculated measurement using platelet volume ratio Neutrophils Relative 05/06/2023 71.2 40.0 - 80.0 % Final Lymphocytes Relative 05/06/2023 18.0 (L) 20.0 - 40.0 % Final Monocytes Relative 05/06/2023 5.4 2.0 - 10.0 % Final Eosinophils Relative 05/06/2023 2.8 1.0 - 6.0 % Final Basophils Relative 05/06/2023 0.9 0.0 - 2.0 % Final Immature Grans % 05/06/2023 1.7 (H) <=0.0 % Final Neutrophils Absolute 05/06/2023 3.3 1.8 - 7.0 10*3/uL Final Lymphocytes Absolute 05/06/2023 0.8 (L) 1.0 - 4.3 10*3/uL Final Monocytes Absolute 05/06/2023 0.3 0.0 - 0.8 10*3/uL Final Eosinophils Absolute 05/06/2023 0.1 0.0 - 0.5 10*3/uL Final Basophils Absolute 05/06/2023 0.0 0.0 - 0.2 10*3/uL Final Immature Grans Absolute 05/06/2023 0.1 (H) <=0.0 10*3/uL Final Infusion on 04/29/2023 Component Date Value Ref Range Status SODIUM 04/29/2023 139 135 - 145 mmol/L Final POTASSIUM 04/29/2023 4.0 3.5 - 5.1 mmol/L Final CHLORIDE 04/29/2023 105 98 - 107 mmol/L Final CARBON DIOXIDE 04/29/2023 24 22 - 30 mmol/L Final ANION GAP 04/29/2023 9 3 - 13 mmol/L Final UREA NITROGEN 04/29/2023 22 (H) 7 - 17 mg/dL Final CREATININE 04/29/2023 0.59 0.52 - 1.04 mg/dL Final GLUCOSE 04/29/2023 121 (H) 70 - 100 mg/dL Final CALCIUM 04/29/2023 8.3 (L) 8.4 - 10.4 mg/dL Final AST (SGOT) 04/29/2023 38 15 - 46 U/L Final ALT 04/29/2023 33 0 - 34 U/L Final ALKALINE PHOSPHATASE 04/29/2023 99 38 - 126 U/L Final ALBUMIN 04/29/2023 4.1 3.5 - 5.0 g/dL Final BILIRUBIN, TOTAL 04/29/2023 0.4 0.2 - 1.3 mg/dL Final TOTAL PROTEIN 04/29/2023 7.0 6.3 - 8.2 g/dL Final eGFR 04/29/2023 >90.0 >60.0 mL/min/1.73m*2 Final Calculation based on the Chronic Kidney Disease Epidemiology Collaboration (CKD-EPI) equation refit without adjustment for race Auto WBC 04/29/2023 6.8 3.6 - 10.7 10*3/uL Final RBC 04/29/2023 4.30 3.8 - 5.20 10*6/uL Final Hemoglobin 04/29/2023 13.4 11.7 - 16.0 g/dL Final Hematocrit 04/29/2023 40.1 35.0 - 47.0 % Final MCV 04/29/2023 93.3 80.0 - 98.0 fL Final MCH 04/29/2023 31.2 26.0 - 34.0 pg Final MCHC 04/29/2023 33.4 32.0 - 36.0 % Final RDW 04/29/2023 14.5 11.5 - 14.5 % Final Platelets 04/29/2023 211 140 - 440 10*3/uL Final MPV 04/29/2023 9.7 7.4 - 12.4 fL Final MPV is a calculated measurement using platelet volume ratio Neutrophils Relative 04/29/2023 73.4 40.0 - 80.0 % Final Lymphocytes Relative 04/29/2023 18.5 (L) 20.0 - 40.0 % Final Monocytes Relative 04/29/2023 4.4 2.0 - 10.0 % Final Eosinophils Relative 04/29/2023 1.8 1.0 - 6.0 % Final Basophils Relative 04/29/2023 0.6 0.0 - 2.0 % Final Immature Grans % 04/29/2023 1.3 (H) <=0.0 % Final Neutrophils Absolute 04/29/2023 5.0 1.8 - 7.0 10*3/uL Final Lymphocytes Absolute 04/29/2023 1.3 1.0 - 4.3 10*3/uL Final Monocytes Absolute 04/29/2023 0.3 0.0 - 0.8 10*3/uL Final Eosinophils Absolute 04/29/2023 0.1 0.0 - 0.5 10*3/uL Final Basophils Absolute 04/29/2023 0.0 0.0 - 0.2 10*3/uL Final Immature Grans Absolute 04/29/2023 0.1 (H) <=0.0 10*3/uL Final Infusion on 04/22/2023 Component Date Value Ref Range Status SODIUM 04/22/2023 138 135 - 145 mmol/L Final POTASSIUM 04/22/2023 3.8 3.5 - 5.1 mmol/L Final CHLORIDE 04/22/2023 107 98 - 107 mmol/L Final CARBON DIOXIDE 04/22/2023 28 22 - 30 mmol/L Final ANION GAP 04/22/2023 3 3 - 13 mmol/L Final UREA NITROGEN 04/22/2023 17 7 - 17 mg/dL Final CREATININE 04/22/2023 0.56 0.52 - 1.04 mg/dL Final GLUCOSE 04/22/2023 139 (H) 70 - 100 mg/dL Final CALCIUM 04/22/2023 8.6 8.4 - 10.4 mg/dL Final AST (SGOT) 04/22/2023 37 15 - 46 U/L Final ALT 04/22/2023 36 (H) 0 - 34 U/L Final ALKALINE PHOSPHATASE 04/22/2023 100 38 - 126 U/L Final ALBUMIN 04/22/2023 3.9 3.5 - 5.0 g/dL Final BILIRUBIN, TOTAL 04/22/2023 0.4 0.2 - 1.3 mg/dL Final TOTAL PROTEIN 04/22/2023 6.7 6.3 - 8.2 g/dL Final eGFR 04/22/2023 >90.0 >60.0 mL/min/1.73m*2 Final Calculation based on the Chronic Kidney Disease Epidemiology Collaboration (CKD-EPI) equation refit without adjustment for race Auto WBC 04/22/2023 4.7 3.6 - 10.7 10*3/uL Final RBC 04/22/2023 4.18 3.8 - 5.20 10*6/uL Final Hemoglobin 04/22/2023 12.9 11.7 - 16.0 g/dL Final Hematocrit 04/22/2023 39.2 35.0 - 47.0 % Final MCV 04/22/2023 93.8 80.0 - 98.0 fL Final MCH 04/22/2023 30.9 26.0 - 34.0 pg Final MCHC 04/22/2023 32.9 32.0 - 36.0 % Final RDW 04/22/2023 14.3 11.5 - 14.5 % Final Platelets 04/22/2023 223 140 - 440 10*3/uL Final MPV 04/22/2023 9.3 7.4 - 12.4 fL Final MPV is a calculated measurement using platelet volume ratio Neutrophils Relative 04/22/2023 63.2 40.0 - 80.0 % Final Lymphocytes Relative 04/22/2023 23.4 20.0 - 40.0 % Final Monocytes Relative 04/22/2023 10.0 2.0 - 10.0 % Final Eosinophils Relative 04/22/2023 1.5 1.0 - 6.0 % Final Basophils Relative 04/22/2023 0.8 0.0 - 2.0 % Final Immature Grans % 04/22/2023 1.1 (H) <=0.0 % Final Neutrophils Absolute 04/22/2023 3.0 1.8 - 7.0 10*3/uL Final Lymphocytes Absolute 04/22/2023 1.1 1.0 - 4.3 10*3/uL Final Monocytes Absolute 04/22/2023 0.5 0.0 - 0.8 10*3/uL Final Eosinophils Absolute 04/22/2023 0.1 0.0 - 0.5 10*3/uL Final Basophils Absolute 04/22/2023 0.0 0.0 - 0.2 10*3/uL Final Immature Grans Absolute 04/22/2023 0.1 (H) <=0.0 10*3/uL Final Imaging Reviewed: as per HPI - I have reviewed all available pertinent laboratory, imaging and pathology results with the patient and/or family members today. Assessment/Plan: Diagnosis Plan 1. Malignant neoplasm of upper-outer quadrant of left breast in female, estrogen receptor positive (HCC) 1) stage 1A left breast cancer ER+/WV+/HER2+ pT1c pN0 cM0 s/p left partial mastectomy and SLNBx to clear margins on 02/18/23 - Today, we again reviewed the diagnosis, staging, natural history, prognosis, and treatment options for her stage 1 left breast cancer. NCCN guidelines were reviewed. Treatment intent is curative. - will proceed with adjuvant chemotherapy with Taxol 60mg/m2 (doses reduced by 25% with cycle 3 due to neutropenia) and herceptin weekly for 12 cycles followed by Herceptin every 3 weeks to complete 1 year of treatment. Today is cycle 7 day 1. Potential side effects and anticipated benefits of Taxol and Herceptin were reviewed with the patient and they agreed to proceed with treatment. See chemo orders for dosing. - Will continue to monitor her closely in regards to toxicity from the chemotherapy. - After the weekly Taxol is completed, she will proceed with radiation therapy with Dr. Diego. - After radiation therapy is completed, adjuvant endocrine therapy with an AI for 5 years will be recommended. - echo prior to treatment on 03/26/23 with EF 63%. Monitor every 3 months - supportive care. See lab orders with chemotherapy. - consider mediport placement if needed All questions were answered to the satisfaction of the patient and/or family. Return to office for cycle 9, or sooner if worrisome signs/symptoms arise. Stevie Escobedo DO Hematology/Medical Oncology documented in this encounter [facility] 05-20-2023 History of Present illness Narrative Patient arrived for weekly Trazimera/Taxol infusion. Patient reports fatigue on Sat./Sun. Scheduled patient for IV hydration and additional IV medication on Fridays. Patient denies neuropathy. Patient had nausea x 1 this week, anti emetics effective for relief. PIV inserted on second attempt in RFA, blood for CBC and CMP obtained and sen tto lab. ECHO from 03-26-23= 63% EF. 1009- Patient and family escorted to private room for OV with physician. Patient returned to infusion suite. Patient tolerated infusions well. Vitals stable post administration.Piv d/c'd angio cath intact. Stable and ambulatory upon discharge. documented in this encounter [facility] 05-13-2023 History of Present illness Narrative Patient arrived ambulatory with spouse for weekly Taxol/Trazimera. Patient reports increased fatigued, rates as moderate, staying in bed last Sat and Sun per . Patient reports feeling strong enough for treatment today if blood work is within treatment parameters.Patient denies issues with nausea this week, denies neuropathy concerns.Increased alopecia. Offered to put patient on scheduled for PRN IV hydration and additional steroids throughout week. PIV inserted in LFA, blood for CBC and CMP obtained and sent to lab.Labs within treatment parameters.ECHO from 04/13 shows Ef of 63%. Patient agreeable to treatment today and as needed IV hydration for remaining cycles. New calendar provided. Patient tolerated infusions well. Vitals stable post administration. PIV d/c'd angio cath intact. Stable and ambulatory upon discharge. documented in this encounter [facility] 05-12-2023 Telephone encounter Note ECHO for Jun 2023 pended to be signed [facility] 05-12-2023 Miscellaneous Notes ECHO for Jun 2023 pended to be signed documented in this encounter [facility] 05-06-2023 History of Present illness Narrative Hematology/Oncology Office Visit Oncology History: 1) stage 1A left breast cancer, invasive ductal carcinoma grade 3. ER+ WV+ HER2+. cT1b N0 M0; pT1c N0 M0, diagnosed 01/28/23. - Patient is a 78 yo F who presented with an abnormal screening mammogram of the upper outer quadrant of the left breast on 11/27/22. Diagnostic imaging and ultrasound were performed on 01/21/2023: a 0.9 x 0.9 x 1 cm irregular mass in the left breast. Biopsy was performed at [facility] on 01/28/2023 confirming grade 3 invasive ductal carcinoma ER positive 100%, WV positive 70% and HER2 positive at 3+. The patient underwent lumpectomy and sentinel node removal on 02/18/[address] Choi at [facility]: pathology revealed grade 3 invasive ductal carcinoma measuring 1.9 cm. There was focal DCIS and extensive lymphovascular invasion. Margins were negative for invasive and in situ component at greater than 2 mm. 6 axillary nodes were removed: 5 sentinel and 1 nonsentinel. All were negative. Pathologically staged [id number]. - she was referred to [facility] for medical and radiation oncology. Her case was reviewed at our tumor board and adjuvant chemotherapy, radiation, and AI therapy were recommended. She started weekly taxol and herceptin on 04/01/23. She required a 25% reduction in Taxol for cycle 3 due to neutropenia. HPI: Madiha Perales is a 78 y.o. female who comes in today for cycle 5 of weekly taxol and herceptin. She is accompanied by her . After the change to a 25% reduction in the Taxol, she has been tolerating chemotherapy a little better. No further falls at home. Appetite is good. No weight loss. Mild neuropathy for a few days but not interfering with ADLs. No fevers, chills or infections. No nausea or diarrhea. Recall, patient has Parkinson's and had a stroke a few years ago, but is generally doing well at home. She is active the majority of the day and continues to take care of the house. She does have some mild expressive aphasia. She has a good appetite. +fatigue. No weight loss or bone pain. No headaches, chest pain, or shortness of breath. Past Medical History: Diagnosis Date Allergic rhinitis Anxiety Back pain Lower back pain Breast calcifications on mammogram Dementia ([facility]) Depression Eczema H/O colonoscopy Hemorrhoid Hx of rosacea Lower extremity edema MARCY (obstructive sleep apnea) The patient wears CPAP Parkinson disease Stroke ([facility]) 2009 Torn meniscus Uterine cancer ([facility]HCC) ([facility]) 2005 Past Surgical History: Procedure Laterality Date BREAST LUMPECTOMY 02/18/2023 Left breast Lumpectomy and sentinel lymph node biopsy BREAST LUMPECTOMY Left 2013 Benign left breast lumpectomy CATARACT EXTRACTION, BILATERAL 2012 Bilateral cataract surgery HYSTERECTOMY 2006 Total Hysterectomy KNEE ARTHROSCOPY Right Patient Active Problem List Diagnosis Date Noted Memory loss 03/18/2023 Pigmented skin lesion suspicious for malignant neoplasm 03/18/2023 Malignant neoplasm of upper-outer quadrant of left breast in female, estrogen receptor positive ([facility]) 03/18/2023 Edema of both lower extremities 02/05/2023 Parkinsonism 02/05/2023 Allergic reaction to bee sting 10/29/2022 Allergic rhinitis 10/29/2022 Eczema 10/29/2022 Eczema 10/29/2022 Elevated TSH 10/29/2022 External hemorrhoids 10/29/2022 Hair loss 10/29/2022 Low back pain 10/29/2022 Menopausal state 10/29/2022 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HCC) 10/29/2022 Mixed anxiety depressive disorder 10/29/2022 Obesity (BMI 30.0-34.9) 10/29/2022 Obstructive sleep apnea syndrome 10/29/2022 Falling 10/29/2022 Seborrheic keratosis 10/29/2022 Rosacea, acne 10/15/2022 Hemangioma of skin and subcutaneous tissue 04/24/2016 Breast calcifications on mammogram 07/24/2013 Cerebrovascular accident (CVA) ([facility]) 06/23/2009 Social History Tobacco Use Smoking status: Never Smokeless tobacco: Never Vaping Use Vaping Use: Never used Substance Use Topics Alcohol use: Not Currently Drug use: Never Family History Problem Relation Name Age of Onset Breast cancer Mother Lung cancer Father Colon cancer Paternal Grandfather Allergies Allergen Reactions Alendronate Unknown and Other Cephalexin Unknown Dye [Gadolinium] Escitalopram Other and Unknown Iodine Other reaction(s): Hives and/or rash Nickel Unknown Penicillins Unknown Other reaction(s): Intolerance-unknown Pregabalin Unknown Salicylates Other and Unknown D/t HX of CVA Iodinated Contrast Media Hives Hives x 5 locations, redness of right eye. Current Outpatient Medications Medication Sig Dispense Refill carbidopa-levodopa (Sinemet) 25-100 MG tablet every 8 hours. dexAMETHasone (Decadron) 4 MG tablet Take 1 tablet (4 mg) by mouth in the morning and 1 tablet (4 mg) in the evening. Take with meals. Do all this for 1 day. Take 6 hours and 12 hours prior to first cycle of chemotherapy.. 2 tablet 0 DULoxetine (Cymbalta) [address] capsule Take 1 capsule (20 mg) by mouth once daily. loratadine (Claritin) 10 MG tablet Take 10 mg by mouth daily. memantine (Namenda) 5 MG tablet Take 1 tablet by mouth daily. MULTIPLE VITAMIN PO Take 1 capsule by mouth in the morning. prochlorperazine (Compazine) 10 MG tablet Take 1 tablet (10 mg) by mouth every 6 hours as needed for nausea. 90 tablet 1 psyllium (Metamucil) 28.3 % powder Take 3.4 g of fiber by mouth daily. No current facility-administered medications for this visit. Facility-Administered Medications Ordered in Other Visits Medication Dose Route Frequency Provider Last Rate Last Admin diphenhydrAMINE (BENADryl) 50 mg, famotidine (Pepcid) 20 mg in sodium chloride 0.9 % 50 mL IVPB IntraVENous Once Stevie E Fanny, DO ondansetron (Zofran) 8 mg, dexAMETHasone (Decadron) 12 mg in sodium chloride 0.9 % 50 mL IVPB IntraVENous Once Stevie E Fanny, DO PACLitaxel (Taxol) 126 mg in sodium chloride 0.9 % 250 mL chemo IVPB 60 mg/m2 (Treatment Plan Recorded) IntraVENous Once Stevie E Fanny, DO sodium chloride 0.9 % infusion 5-250 mL/hr IntraVENous Once PRN Stevie E Fanny, DO trastuzumab-qyyp (Trazimera) 184.6 mg in sodium chloride 0.9 % 250 mL chemo IVPB 2 mg/kg (Treatment Plan Recorded) IntraVENous Once Stevie Escobedo DO Review of Systems Constitutional: Positive for fatigue. Negative for appetite change, chills, diaphoresis, fever and unexpected weight change. HENT: Negative for dental problem, mouth sores, nosebleeds, sneezing, sore throat, tinnitus, trouble swallowing and voice change. Eyes: Negative for photophobia, pain and visual disturbance. Respiratory: Negative for cough, shortness of breath and wheezing. Cardiovascular: Negative for chest pain, palpitations and leg swelling. Gastrointestinal: Negative for abdominal distention, abdominal pain, blood in stool, constipation, diarrhea, nausea and vomiting. Endocrine: Negative for cold intolerance and heat intolerance. Genitourinary: Negative for difficulty urinating, frequency, hematuria and urgency. Musculoskeletal: Negative for arthralgias, back pain, gait problem and myalgias. Skin: Negative for pallor and rash. Allergic/Immunologic: Negative for immunocompromised state. Neurological: Positive for speech difficulty and weakness. Negative for dizziness, syncope, light-headedness, numbness and headaches. Hematological: Negative for adenopathy. Does not bruise/bleed easily. Psychiatric/Behavioral: Negative for confusion and sleep disturbance. The patient is not nervous/anxious. All other systems reviewed and are negative. Vitals: 05/06/23 0844 BP: 113/71 BP Location: Right arm Patient Position: Sitting Pulse: 77 Temp: 36.1 C (97 F) TempSrc: Temporal SpO2: 96% Weight: 93.4 kg (205 lb 12.8 oz) Height: 1.651 m (5' 5) ECOG PS = 2 Physical Exam Vitals and nursing note reviewed. Constitutional: General: She is not in acute distress. Appearance: Normal appearance. She is not ill-appearing. HENT: Head: Normocephalic and atraumatic. Nose: Nose normal. Mouth/Throat: Pharynx: Oropharynx is clear. No oropharyngeal exudate or posterior oropharyngeal erythema. Eyes: General: No scleral icterus. Extraocular Movements: Extraocular movements intact. Conjunctiva/sclera: Conjunctivae normal. Pupils: Pupils are equal, round, and reactive to light. Cardiovascular: Rate and Rhythm: Normal rate and regular rhythm. Heart sounds: Normal heart sounds. No murmur heard. Pulmonary: Effort: Pulmonary effort is normal. No respiratory distress. Breath sounds: Normal breath sounds. No wheezing. Abdominal: General: Abdomen is flat. Bowel sounds are normal. There is no distension. Palpations: Abdomen is soft. There is no mass. Tenderness: There is no abdominal tenderness. There is no guarding. Musculoskeletal: General: No swelling or tenderness. Normal range of motion. Cervical back: Normal range of motion and neck supple. Right lower leg: No edema. Left lower leg: No edema. Lymphadenopathy: Cervical: No cervical adenopathy. Skin: General: Skin is warm and dry. Findings: No bruising or rash. Neurological: Mental Status: She is alert and oriented to person, place, and time. Mental status is at baseline. Motor: Weakness present. Psychiatric: Mood and Affect: Mood normal. Thought Content: Thought content normal. Imaging/Labs: Infusion on 05/06/2023 Component Date Value Ref Range Status SODIUM 05/06/2023 139 135 - 145 mmol/L Final POTASSIUM 05/06/2023 3.8 3.5 - 5.1 mmol/L Final CHLORIDE 05/06/2023 105 98 - 107 mmol/L Final CARBON DIOXIDE 05/06/2023 24 22 - 30 mmol/L Final ANION GAP 05/06/2023 9 3 - 13 mmol/L Final UREA NITROGEN 05/06/2023 22 (H) 7 - 17 mg/dL Final CREATININE 05/06/2023 0.61 0.52 - 1.04 mg/dL Final GLUCOSE 05/06/2023 125 (H) 70 - 100 mg/dL Final CALCIUM 05/06/2023 8.6 8.4 - 10.4 mg/dL Final AST (SGOT) 05/06/2023 36 15 - 46 U/L Final ALT 05/06/2023 40 (H) 0 - 34 U/L Final ALKALINE PHOSPHATASE 05/06/2023 80 38 - 126 U/L Final ALBUMIN 05/06/2023 3.9 3.5 - 5.0 g/dL Final BILIRUBIN, TOTAL 05/06/2023 0.5 0.2 - 1.3 mg/dL Final TOTAL PROTEIN 05/06/2023 6.7 6.3 - 8.2 g/dL Final eGFR 05/06/2023 >90.0 >60.0 mL/min/1.73m*2 Final Calculation based on the Chronic Kidney Disease Epidemiology Collaboration (CKD-EPI) equation refit without adjustment for race Auto WBC 05/06/2023 4.7 3.6 - 10.7 10*3/uL Final RBC 05/06/2023 4.18 3.8 - 5.20 10*6/uL Final Hemoglobin 05/06/2023 13.0 11.7 - 16.0 g/dL Final Hematocrit 05/06/2023 39.2 35.0 - 47.0 % Final MCV 05/06/2023 93.8 80.0 - 98.0 fL Final MCH 05/06/2023 31.1 26.0 - 34.0 pg Final MCHC 05/06/2023 33.2 32.0 - 36.0 % Final RDW 05/06/2023 14.6 (H) 11.5 - 14.5 % Final Platelets 05/06/2023 184 140 - 440 10*3/uL Final MPV 05/06/2023 10.0 7.4 - 12.4 fL Final MPV is a calculated measurement using platelet volume ratio Neutrophils Relative 05/06/2023 71.2 40.0 - 80.0 % Final Lymphocytes Relative 05/06/2023 18.0 (L) 20.0 - 40.0 % Final Monocytes Relative 05/06/2023 5.4 2.0 - 10.0 % Final Eosinophils Relative 05/06/2023 2.8 1.0 - 6.0 % Final Basophils Relative 05/06/2023 0.9 0.0 - 2.0 % Final Immature Grans % 05/06/2023 1.7 (H) <=0.0 % Final Neutrophils Absolute 05/06/2023 3.3 1.8 - 7.0 10*3/uL Final Lymphocytes Absolute 05/06/2023 0.8 (L) 1.0 - 4.3 10*3/uL Final Monocytes Absolute 05/06/2023 0.3 0.0 - 0.8 10*3/uL Final Eosinophils Absolute 05/06/2023 0.1 0.0 - 0.5 10*3/uL Final Basophils Absolute 05/06/2023 0.0 0.0 - 0.2 10*3/uL Final Immature Grans Absolute 05/06/2023 0.1 (H) <=0.0 10*3/uL Final Infusion on 04/29/2023 Component Date Value Ref Range Status SODIUM 04/29/2023 139 135 - 145 mmol/L Final POTASSIUM 04/29/2023 4.0 3.5 - 5.1 mmol/L Final CHLORIDE 04/29/2023 105 98 - 107 mmol/L Final CARBON DIOXIDE 04/29/2023 24 22 - 30 mmol/L Final ANION GAP 04/29/2023 9 3 - 13 mmol/L Final UREA NITROGEN 04/29/2023 22 (H) 7 - 17 mg/dL Final CREATININE 04/29/2023 0.59 0.52 - 1.04 mg/dL Final GLUCOSE 04/29/2023 121 (H) 70 - 100 mg/dL Final CALCIUM 04/29/2023 8.3 (L) 8.4 - 10.4 mg/dL Final AST (SGOT) 04/29/2023 38 15 - 46 U/L Final ALT 04/29/2023 33 0 - 34 U/L Final ALKALINE PHOSPHATASE 04/29/2023 99 38 - 126 U/L Final ALBUMIN 04/29/2023 4.1 3.5 - 5.0 g/dL Final BILIRUBIN, TOTAL 04/29/2023 0.4 0.2 - 1.3 mg/dL Final TOTAL PROTEIN 04/29/2023 7.0 6.3 - 8.2 g/dL Final eGFR 04/29/2023 >90.0 >60.0 mL/min/1.73m*2 Final Calculation based on the Chronic Kidney Disease Epidemiology Collaboration (CKD-EPI) equation refit without adjustment for race Auto WBC 04/29/2023 6.8 3.6 - 10.7 10*3/uL Final RBC 04/29/2023 4.30 3.8 - 5.20 10*6/uL Final Hemoglobin 04/29/2023 13.4 11.7 - 16.0 g/dL Final Hematocrit 04/29/2023 40.1 35.0 - 47.0 % Final MCV 04/29/2023 93.3 80.0 - 98.0 fL Final MCH 04/29/2023 31.2 26.0 - 34.0 pg Final MCHC 04/29/2023 33.4 32.0 - 36.0 % Final RDW 04/29/2023 14.5 11.5 - 14.5 % Final Platelets 04/29/2023 211 140 - 440 10*3/uL Final MPV 04/29/2023 9.7 7.4 - 12.4 fL Final MPV is a calculated measurement using platelet volume ratio Neutrophils Relative 04/29/2023 73.4 40.0 - 80.0 % Final Lymphocytes Relative 04/29/2023 18.5 (L) 20.0 - 40.0 % Final Monocytes Relative 04/29/2023 4.4 2.0 - 10.0 % Final Eosinophils Relative 04/29/2023 1.8 1.0 - 6.0 % Final Basophils Relative 04/29/2023 0.6 0.0 - 2.0 % Final Immature Grans % 04/29/2023 1.3 (H) <=0.0 % Final Neutrophils Absolute 04/29/2023 5.0 1.8 - 7.0 10*3/uL Final Lymphocytes Absolute 04/29/2023 1.3 1.0 - 4.3 10*3/uL Final Monocytes Absolute 04/29/2023 0.3 0.0 - 0.8 10*3/uL Final Eosinophils Absolute 04/29/2023 0.1 0.0 - 0.5 10*3/uL Final Basophils Absolute 04/29/2023 0.0 0.0 - 0.2 10*3/uL Final Immature Grans Absolute 04/29/2023 0.1 (H) <=0.0 10*3/uL Final Infusion on 04/22/2023 Component Date Value Ref Range Status SODIUM 04/22/2023 138 135 - 145 mmol/L Final POTASSIUM 04/22/2023 3.8 3.5 - 5.1 mmol/L Final CHLORIDE 04/22/2023 107 98 - 107 mmol/L Final CARBON DIOXIDE 04/22/2023 28 22 - 30 mmol/L Final ANION GAP 04/22/2023 3 3 - 13 mmol/L Final UREA NITROGEN 04/22/2023 17 7 - 17 mg/dL Final CREATININE 04/22/2023 0.56 0.52 - 1.04 mg/dL Final GLUCOSE 04/22/2023 139 (H) 70 - 100 mg/dL Final CALCIUM 04/22/2023 8.6 8.4 - 10.4 mg/dL Final AST (SGOT) 04/22/2023 37 15 - 46 U/L Final ALT 04/22/2023 36 (H) 0 - 34 U/L Final ALKALINE PHOSPHATASE 04/22/2023 100 38 - 126 U/L Final ALBUMIN 04/22/2023 3.9 3.5 - 5.0 g/dL Final BILIRUBIN, TOTAL 04/22/2023 0.4 0.2 - 1.3 mg/dL Final TOTAL PROTEIN 04/22/2023 6.7 6.3 - 8.2 g/dL Final eGFR 04/22/2023 >90.0 >60.0 mL/min/1.73m*2 Final Calculation based on the Chronic Kidney Disease Epidemiology Collaboration (CKD-EPI) equation refit without adjustment for race Auto WBC 04/22/2023 4.7 3.6 - 10.7 10*3/uL Final RBC 04/22/2023 4.18 3.8 - 5.20 10*6/uL Final Hemoglobin 04/22/2023 12.9 11.7 - 16.0 g/dL Final Hematocrit 04/22/2023 39.2 35.0 - 47.0 % Final MCV 04/22/2023 93.8 80.0 - 98.0 fL Final MCH 04/22/2023 30.9 26.0 - 34.0 pg Final MCHC 04/22/2023 32.9 32.0 - 36.0 % Final RDW 04/22/2023 14.3 11.5 - 14.5 % Final Platelets 04/22/2023 223 140 - 440 10*3/uL Final MPV 04/22/2023 9.3 7.4 - 12.4 fL Final MPV is a calculated measurement using platelet volume ratio Neutrophils Relative 04/22/2023 63.2 40.0 - 80.0 % Final Lymphocytes Relative 04/22/2023 23.4 20.0 - 40.0 % Final Monocytes Relative 04/22/2023 10.0 2.0 - 10.0 % Final Eosinophils Relative 04/22/2023 1.5 1.0 - 6.0 % Final Basophils Relative 04/22/2023 0.8 0.0 - 2.0 % Final Immature Grans % 04/22/2023 1.1 (H) <=0.0 % Final Neutrophils Absolute 04/22/2023 3.0 1.8 - 7.0 10*3/uL Final Lymphocytes Absolute 04/22/2023 1.1 1.0 - 4.3 10*3/uL Final Monocytes Absolute 04/22/2023 0.5 0.0 - 0.8 10*3/uL Final Eosinophils Absolute 04/22/2023 0.1 0.0 - 0.5 10*3/uL Final Basophils Absolute 04/22/2023 0.0 0.0 - 0.2 10*3/uL Final Immature Grans Absolute 04/22/2023 0.1 (H) <=0.0 10*3/uL Final Infusion on 04/15/2023 Component Date Value Ref Range Status Auto WBC 04/15/2023 2.1 (L) 3.6 - 10.7 10*3/uL Final RBC 04/15/2023 4.29 3.8 - 5.20 10*6/uL Final Hemoglobin 04/15/2023 13.3 11.7 - 16.0 g/dL Final Hematocrit 04/15/2023 40.5 35.0 - 47.0 % Final MCV 04/15/2023 94.4 80.0 - 98.0 fL Final MCH 04/15/2023 31.0 26.0 - 34.0 pg Final MCHC 04/15/2023 32.8 32.0 - 36.0 % Final RDW 04/15/2023 14.4 11.5 - 14.5 % Final Platelets 04/15/2023 226 140 - 440 10*3/uL Final MPV 04/15/2023 10.2 7.4 - 12.4 fL Final MPV is a calculated measurement using platelet volume ratio Neutrophils Relative 04/15/2023 46.7 40.0 - 80.0 % Final Lymphocytes Relative 04/15/2023 41.5 (H) 20.0 - 40.0 % Final Monocytes Relative 04/15/2023 5.7 2.0 - 10.0 % Final Eosinophils Relative 04/15/2023 4.7 1.0 - 6.0 % Final Basophils Relative 04/15/2023 0.9 0.0 - 2.0 % Final Immature Grans % 04/15/2023 0.5 (H) <=0.0 % Final Neutrophils Absolute 04/15/2023 1.0 (L) 1.8 - 7.0 10*3/uL Final Lymphocytes Absolute 04/15/2023 0.9 (L) 1.0 - 4.3 10*3/uL Final Monocytes Absolute 04/15/2023 0.1 0.0 - 0.8 10*3/uL Final Eosinophils Absolute 04/15/2023 0.1 0.0 - 0.5 10*3/uL Final Basophils Absolute 04/15/2023 0.0 0.0 - 0.2 10*3/uL Final Immature Grans Absolute 04/15/2023 0.0 <=0.0 10*3/uL Final SODIUM 04/15/2023 138 135 - 145 mmol/L Final POTASSIUM 04/15/2023 4.1 3.5 - 5.1 mmol/L Final CHLORIDE 04/15/2023 105 98 - 107 mmol/L Final CARBON DIOXIDE 04/15/2023 27 22 - 30 mmol/L Final ANION GAP 04/15/2023 6 3 - 13 mmol/L Final UREA NITROGEN 04/15/2023 16 7 - 17 mg/dL Final CREATININE 04/15/2023 0.62 0.52 - 1.04 mg/dL Final GLUCOSE 04/15/2023 121 (H) 70 - 100 mg/dL Final CALCIUM 04/15/2023 8.8 8.4 - 10.4 mg/dL Final AST (SGOT) 04/15/2023 34 15 - 46 U/L Final ALT 04/15/2023 44 (H) 0 - 34 U/L Final ALKALINE PHOSPHATASE 04/15/2023 84 38 - 126 U/L Final ALBUMIN 04/15/2023 4.2 3.5 - 5.0 g/dL Final BILIRUBIN, TOTAL 04/15/2023 0.6 0.2 - 1.3 mg/dL Final TOTAL PROTEIN 04/15/2023 7.0 6.3 - 8.2 g/dL Final eGFR 04/15/2023 >90.0 >60.0 mL/min/1.73m*2 Final Calculation based on the Chronic Kidney Disease Epidemiology Collaboration (CKD-EPI) equation refit without adjustment for race Infusion on 04/08/2023 Component Date Value Ref Range Status SODIUM 04/08/2023 138 135 - 145 mmol/L Final POTASSIUM 04/08/2023 4.1 3.5 - 5.1 mmol/L Final CHLORIDE 04/08/2023 106 98 - 107 mmol/L Final CARBON DIOXIDE 04/08/2023 30 22 - 30 mmol/L Final ANION GAP 04/08/2023 2 (L) 3 - 13 mmol/L Final UREA NITROGEN 04/08/2023 21 (H) 7 - 17 mg/dL Final CREATININE 04/08/2023 0.60 0.52 - 1.04 mg/dL Final GLUCOSE 04/08/2023 88 70 - 100 mg/dL Final CALCIUM 04/08/2023 8.7 8.4 - 10.4 mg/dL Final AST (SGOT) 04/08/2023 37 15 - 46 U/L Final ALT 04/08/2023 42 (H) 0 - 34 U/L Final ALKALINE PHOSPHATASE 04/08/2023 86 38 - 126 U/L Final ALBUMIN 04/08/2023 4.0 3.5 - 5.0 g/dL Final BILIRUBIN, TOTAL 04/08/2023 0.6 0.2 - 1.3 mg/dL Final TOTAL PROTEIN 04/08/2023 6.6 6.3 - 8.2 g/dL Final eGFR 04/08/2023 >90.0 >60.0 mL/min/1.73m*2 Final Calculation based on the Chronic Kidney Disease Epidemiology Collaboration (CKD-EPI) equation refit without adjustment for race Auto WBC 04/08/2023 4.7 3.6 - 10.7 10*3/uL Final RBC 04/08/2023 4.13 3.8 - 5.20 10*6/uL Final Hemoglobin 04/08/2023 12.8 11.7 - 16.0 g/dL Final Hematocrit 04/08/2023 39.1 35.0 - 47.0 % Final MCV 04/08/2023 94.7 80.0 - 98.0 fL Final MCH 04/08/2023 31.0 26.0 - 34.0 pg Final MCHC 04/08/2023 32.7 32.0 - 36.0 % Final RDW 04/08/2023 14.0 11.5 - 14.5 % Final Platelets 04/08/2023 186 140 - 440 10*3/uL Final MPV 04/08/2023 10.1 7.4 - 12.4 fL Final MPV is a calculated measurement using platelet volume ratio Neutrophils Relative 04/08/2023 72.8 40.0 - 80.0 % Final Lymphocytes Relative 04/08/2023 18.6 (L) 20.0 - 40.0 % Final Monocytes Relative 04/08/2023 3.2 2.0 - 10.0 % Final Eosinophils Relative 04/08/2023 2.6 1.0 - 6.0 % Final Basophils Relative 04/08/2023 0.9 0.0 - 2.0 % Final Immature Grans % 04/08/2023 1.9 (H) <=0.0 % Final Neutrophils Absolute 04/08/2023 3.4 1.8 - 7.0 10*3/uL Final Lymphocytes Absolute 04/08/2023 0.9 (L) 1.0 - 4.3 10*3/uL Final Monocytes Absolute 04/08/2023 0.2 0.0 - 0.8 10*3/uL Final Eosinophils Absolute 04/08/2023 0.1 0.0 - 0.5 10*3/uL Final Basophils Absolute 04/08/2023 0.0 0.0 - 0.2 10*3/uL Final Immature Grans Absolute 04/08/2023 0.1 (H) <=0.0 10*3/uL Final Imaging Reviewed: as per HPI - I have reviewed all available pertinent laboratory, imaging and pathology results with the patient and/or family members today. Assessment/Plan: Diagnosis Plan 1. Malignant neoplasm of upper-outer quadrant of left breast in female, estrogen receptor positive (HCC) 1) stage 1A left breast cancer ER+/WV+/HER2+ pT1c pN0 cM0 s/p left partial mastectomy and SLNBx to clear margins on 02/18/23 - Today, we again reviewed the diagnosis, staging, natural history, prognosis, and treatment options for her stage 1 left breast cancer. NCCN guidelines were reviewed. Treatment intent is curative. - will proceed with adjuvant chemotherapy with Taxol 60mg/m2 (doses reduced by 25% with cycle 3 due to neutropenia) and herceptin weekly for 12 cycles followed by Herceptin every 3 weeks to complete 1 year of treatment. Today is cycle 5 day 1. Potential side effects and anticipated benefits of Taxol and Herceptin were reviewed with the patient and they agreed to proceed with treatment. See chemo orders for dosing. - Will continue to monitor her closely in regards to toxicity from the chemotherapy. - After the weekly Taxol is completed, she will proceed with radiation therapy with Dr. Diego. - After radiation therapy is completed, adjuvant endocrine therapy with an AI for 5 years will be recommended. - echo prior to treatment on 03/26/23 with EF 63%. Monitor every 3 months - supportive care. See lab orders with chemotherapy. - consider mediport placement if needed All questions were answered to the satisfaction of the patient and/or family. Return to office for cycle 7, or sooner if worrisome signs/symptoms arise. Stevie Escobedo DO Hematology/Medical Oncology documented in this encounter [facility] 05-06-2023 History of Present illness Narrative Patient arrived ambulatory for weekly Trazimera and Taxol. Patient reports new intermittent numbness/tingling to R hand, denies currently, denies effecting ADLs. Will notify physician. Encouraged patient to try Nervive(B vitamins and ALA).Patient reports intermittent nausea, denies vomiting, encouraged patient to take PO anti emetics. PIV inserted in RFA, blood for CBC and CMP obtained and sent to lab. ECHO from 03-26-23 shows EF of 63%. 1007- Patient returned to infusion suite from with physician. Patient tolerated infusions well. PIV d/c'd angio cath intact. Patient stable,ambulatory and aware of next appt. documented in this encounter [facility] 04-29-2023 History of Present illness Narrative Patient arrived ambulatory for cycle 4 Taxol/Trazimera. Patient reports intermittent nausea, no vomiting. Denies other concerns or changes at this time. PIV inserted in RFA, blood for CBC and CMP obtained and sent to lab. ECHO on 03-26 shows EF of 63%. Labs reviewed Patient tolerated infusions well. Vitals obtained post administration. PIV d/c'd angio cath in tact. Patient stable and ambulatory upon discharge. Copy of calendar provided to patient. documented in this encounter [facility] 04-22-2023 History of Present illness Narrative Hematology/Oncology Office Visit Oncology History: 1) stage 1A left breast cancer, invasive ductal carcinoma grade 3. ER+ WV+ HER2+. cT1b N0 M0; pT1c N0 M0, diagnosed 01/28/23. - Patient is a 78 yo F who presented with an abnormal screening mammogram of the upper outer quadrant of the left breast on 11/27/22. Diagnostic imaging and ultrasound were performed on 01/21/2023: a 0.9 x 0.9 x 1 cm irregular mass in the left breast. Biopsy was performed at [facility] on 01/28/2023 confirming grade 3 invasive ductal carcinoma ER positive 100%, WV positive 70% and HER2 positive at 3+. The patient underwent lumpectomy and sentinel node removal on 02/18/[address] Choi at [facility]: pathology revealed grade 3 invasive ductal carcinoma measuring 1.9 cm. There was focal DCIS and extensive lymphovascular invasion. Margins were negative for invasive and in situ component at greater than 2 mm. 6 axillary nodes were removed: 5 sentinel and 1 nonsentinel. All were negative. Pathologically staged [id number]. - she was referred to [facility] for medical and radiation oncology. Her case was reviewed at our tumor board and adjuvant chemotherapy, radiation, and AI therapy were recommended. She started weekly taxol and herceptin on 04/01/23. HPI: Madiha Perales is a 78 y.o. female who comes in today for cycle 3 of weekly taxol and herceptin. She is accompanied by her and daughter is on the telephone. She has tolerated chemotherapy well. No nausea. Appetite good. No weight loss. No neuropathy. However with cycle 3 her ANC was 1000 last week so her treatment was delayed one week. Today, she is feeling better and ready to proceed with treatment. She did fall at home last week and thinks she tripped over a lamp cord. She did not lose consciousness or hit her head. She did not feel dizzy or lightheaded. No chest pain. Recall, patient has Parkinson's and had a stroke a few years ago, but is generally doing well at home. She is active the majority of the day and continues to take care of the house. She does have some mild expressive aphasia. She has a good appetite. +fatigue. No weight loss or bone pain. No headaches, chest pain, or shortness of breath. Past Medical History: Diagnosis Date Allergic rhinitis Anxiety Back pain Lower back pain Breast calcifications on mammogram Dementia ([facility]) Depression Eczema H/O colonoscopy Hemorrhoid Hx of rosacea Lower extremity edema MARCY (obstructive sleep apnea) The patient wears CPAP Parkinson disease Stroke ([facility]) 2009 Torn meniscus Uterine cancer ([facility]) ([facility]) 2005 Past Surgical History: Procedure Laterality Date BREAST LUMPECTOMY 02/18/2023 Left breast Lumpectomy and sentinel lymph node biopsy BREAST LUMPECTOMY Left 2014 Benign left breast lumpectomy CATARACT EXTRACTION, BILATERAL 2012 Bilateral cataract surgery HYSTERECTOMY 2006 Total Hysterectomy KNEE ARTHROSCOPY Right Patient Active Problem List Diagnosis Date Noted Memory loss 03/18/2023 Pigmented skin lesion suspicious for malignant neoplasm 03/18/2023 Malignant neoplasm of upper-outer quadrant of left breast in female, estrogen receptor positive ([facility]) 03/18/2023 Edema of both lower extremities 02/05/2023 Parkinsonism 02/05/2023 Allergic reaction to bee sting 10/29/2022 Allergic rhinitis 10/29/2022 Eczema 10/29/2022 Eczema 10/29/2022 Elevated TSH 10/29/2022 External hemorrhoids 10/29/2022 Hair loss 10/29/2022 Low back pain 10/29/2022 Menopausal state 10/29/2022 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HCC) 10/29/2022 Mixed anxiety depressive disorder 10/29/2022 Obesity (BMI 30.0-34.9) 10/29/2022 Obstructive sleep apnea syndrome 10/29/2022 Falling 10/29/2022 Seborrheic keratosis 10/29/2022 Rosacea, acne 10/15/2022 Hemangioma of skin and subcutaneous tissue 04/24/2016 Breast calcifications on mammogram 07/24/2013 Cerebrovascular accident (CVA) ([facility]) 06/23/2009 Social History Tobacco Use Smoking status: Never Smokeless tobacco: Never Vaping Use Vaping Use: Never used Substance Use Topics Alcohol use: Not Currently Drug use: Never Family History Problem Relation Name Age of Onset Breast cancer Mother Lung cancer Father Colon cancer Paternal Grandfather Allergies Allergen Reactions Alendronate Unknown and Other Cephalexin Unknown Dye [Gadolinium] Escitalopram Other and Unknown Iodine Other reaction(s): Hives and/or rash Nickel Unknown Penicillins Unknown Other reaction(s): Intolerance-unknown Pregabalin Unknown Salicylates Other and Unknown D/t HX of CVA Iodinated Contrast Media Hives Hives x 5 locations, redness of right eye. Current Outpatient Medications Medication Sig Dispense Refill carbidopa-levodopa (Sinemet) 25-100 MG tablet every 8 hours. dexAMETHasone (Decadron) 4 MG tablet Take 1 tablet (4 mg) by mouth in the morning and 1 tablet (4 mg) in the evening. Take with meals. Do all this for 1 day. Take 6 hours and 12 hours prior to first cycle of chemotherapy.. 2 tablet 0 DULoxetine (Cymbalta) [address] capsule Take 1 capsule (20 mg) by mouth once daily. loratadine (Claritin) 10 MG tablet Take 10 mg by mouth daily. memantine (Namenda) 5 MG tablet Take 1 tablet by mouth daily. MULTIPLE VITAMIN PO Take 1 capsule by mouth in the morning. ondansetron (Zofran) 8 MG tablet Take 1 tablet (8 mg) by mouth every 8 hours as needed for nausea. 60 tablet 1 prochlorperazine (Compazine) 10 MG tablet Take 1 tablet (10 mg) by mouth every 6 hours as needed for nausea. 90 tablet 1 psyllium (Metamucil) 28.3 % powder Take 3.4 g of fiber by mouth daily. No current facility-administered medications for this visit. Review of Systems Constitutional: Positive for fatigue. Negative for appetite change, chills, diaphoresis, fever and unexpected weight change. HENT: Negative for dental problem, mouth sores, nosebleeds, sneezing, sore throat, tinnitus, trouble swallowing and voice change. Eyes: Negative for photophobia, pain and visual disturbance. Respiratory: Negative for cough, shortness of breath and wheezing. Cardiovascular: Negative for chest pain, palpitations and leg swelling. Gastrointestinal: Negative for abdominal distention, abdominal pain, blood in stool, constipation, diarrhea, nausea and vomiting. Endocrine: Negative for cold intolerance and heat intolerance. Genitourinary: Negative for difficulty urinating, frequency, hematuria and urgency. Musculoskeletal: Negative for arthralgias, back pain, gait problem and myalgias. Skin: Negative for pallor and rash. Allergic/Immunologic: Negative for immunocompromised state. Neurological: Positive for speech difficulty and weakness. Negative for dizziness, syncope, light-headedness, numbness and headaches. Hematological: Negative for adenopathy. Does not bruise/bleed easily. Psychiatric/Behavioral: Negative for confusion and sleep disturbance. The patient is not nervous/anxious. All other systems reviewed and are negative. Vitals: 04/22/23 0812 BP: 139/83 BP Location: Right arm Patient Position: Sitting Pulse: 79 Temp: 36.7 C (98 F) TempSrc: Temporal SpO2: 93% Weight: 93.2 kg (205 lb 6.4 oz) Height: 1.651 m (5' 5) ECOG PS = 2 Physical Exam Vitals and nursing note reviewed. Constitutional: General: She is not in acute distress. Appearance: Normal appearance. She is not ill-appearing. HENT: Head: Normocephalic and atraumatic. Nose: Nose normal. Mouth/Throat: Pharynx: Oropharynx is clear. No oropharyngeal exudate or posterior oropharyngeal erythema. Eyes: General: No scleral icterus. Extraocular Movements: Extraocular movements intact. Conjunctiva/sclera: Conjunctivae normal. Pupils: Pupils are equal, round, and reactive to light. Cardiovascular: Rate and Rhythm: Normal rate and regular rhythm. Heart sounds: Normal heart sounds. No murmur heard. Pulmonary: Effort: Pulmonary effort is normal. No respiratory distress. Breath sounds: Normal breath sounds. No wheezing. Abdominal: General: Abdomen is flat. Bowel sounds are normal. There is no distension. Palpations: Abdomen is soft. There is no mass. Tenderness: There is no abdominal tenderness. There is no guarding. Musculoskeletal: General: No swelling or tenderness. Normal range of motion. Cervical back: Normal range of motion and neck supple. Right lower leg: No edema. Left lower leg: No edema. Lymphadenopathy: Cervical: No cervical adenopathy. Skin: General: Skin is warm and dry. Findings: No bruising or rash. Neurological: Mental Status: She is alert and oriented to person, place, and time. Mental status is at baseline. Motor: Weakness present. Psychiatric: Mood and Affect: Mood normal. Thought Content: Thought content normal. Imaging/Labs: Infusion on 04/22/2023 Component Date Value Ref Range Status Auto WBC 04/22/2023 4.7 3.6 - 10.7 10*3/uL Final RBC 04/22/2023 4.18 3.8 - 5.20 10*6/uL Final Hemoglobin 04/22/2023 12.9 11.7 - 16.0 g/dL Final Hematocrit 04/22/2023 39.2 35.0 - 47.0 % Final MCV 04/22/2023 93.8 80.0 - 98.0 fL Final MCH 04/22/2023 30.9 26.0 - 34.0 pg Final MCHC 04/22/2023 32.9 32.0 - 36.0 % Final RDW 04/22/2023 14.3 11.5 - 14.5 % Final Platelets 04/22/2023 223 140 - 440 10*3/uL Final MPV 04/22/2023 9.3 7.4 - 12.4 fL Final MPV is a calculated measurement using platelet volume ratio Neutrophils Relative 04/22/2023 63.2 40.0 - 80.0 % Final Lymphocytes Relative 04/22/2023 23.4 20.0 - 40.0 % Final Monocytes Relative 04/22/2023 10.0 2.0 - 10.0 % Final Eosinophils Relative 04/22/2023 1.5 1.0 - 6.0 % Final Basophils Relative 04/22/2023 0.8 0.0 - 2.0 % Final Immature Grans % 04/22/2023 1.1 (H) <=0.0 % Final Neutrophils Absolute 04/22/2023 3.0 1.8 - 7.0 10*3/uL Final Lymphocytes Absolute 04/22/2023 1.1 1.0 - 4.3 10*3/uL Final Monocytes Absolute 04/22/2023 0.5 0.0 - 0.8 10*3/uL Final Eosinophils Absolute 04/22/2023 0.1 0.0 - 0.5 10*3/uL Final Basophils Absolute 04/22/2023 0.0 0.0 - 0.2 10*3/uL Final Immature Grans Absolute 04/22/2023 0.1 (H) <=0.0 10*3/uL Final Infusion on 04/15/2023 Component Date Value Ref Range Status Auto WBC 04/15/2023 2.1 (L) 3.6 - 10.7 10*3/uL Final RBC 04/15/2023 4.29 3.8 - 5.20 10*6/uL Final Hemoglobin 04/15/2023 13.3 11.7 - 16.0 g/dL Final Hematocrit 04/15/2023 40.5 35.0 - 47.0 % Final MCV 04/15/2023 94.4 80.0 - 98.0 fL Final MCH 04/15/2023 31.0 26.0 - 34.0 pg Final MCHC 04/15/2023 32.8 32.0 - 36.0 % Final RDW 04/15/2023 14.4 11.5 - 14.5 % Final Platelets 04/15/2023 226 140 - 440 10*3/uL Final MPV 04/15/2023 10.2 7.4 - 12.4 fL Final MPV is a calculated measurement using platelet volume ratio Neutrophils Relative 04/15/2023 46.7 40.0 - 80.0 % Final Lymphocytes Relative 04/15/2023 41.5 (H) 20.0 - 40.0 % Final Monocytes Relative 04/15/2023 5.7 2.0 - 10.0 % Final Eosinophils Relative 04/15/2023 4.7 1.0 - 6.0 % Final Basophils Relative 04/15/2023 0.9 0.0 - 2.0 % Final Immature Grans % 04/15/2023 0.5 (H) <=0.0 % Final Neutrophils Absolute 04/15/2023 1.0 (L) 1.8 - 7.0 10*3/uL Final Lymphocytes Absolute 04/15/2023 0.9 (L) 1.0 - 4.3 10*3/uL Final Monocytes Absolute 04/15/2023 0.1 0.0 - 0.8 10*3/uL Final Eosinophils Absolute 04/15/2023 0.1 0.0 - 0.5 10*3/uL Final Basophils Absolute 04/15/2023 0.0 0.0 - 0.2 10*3/uL Final Immature Grans Absolute 04/15/2023 0.0 <=0.0 10*3/uL Final SODIUM 04/15/2023 138 135 - 145 mmol/L Final POTASSIUM 04/15/2023 4.1 3.5 - 5.1 mmol/L Final CHLORIDE 04/15/2023 105 98 - 107 mmol/L Final CARBON DIOXIDE 04/15/2023 27 22 - 30 mmol/L Final ANION GAP 04/15/2023 6 3 - 13 mmol/L Final UREA NITROGEN 04/15/2023 16 7 - 17 mg/dL Final CREATININE 04/15/2023 0.62 0.52 - 1.04 mg/dL Final GLUCOSE 04/15/2023 121 (H) 70 - 100 mg/dL Final CALCIUM 04/15/2023 8.8 8.4 - 10.4 mg/dL Final AST (SGOT) 04/15/2023 34 15 - 46 U/L Final ALT 04/15/2023 44 (H) 0 - 34 U/L Final ALKALINE PHOSPHATASE 04/15/2023 84 38 - 126 U/L Final ALBUMIN 04/15/2023 4.2 3.5 - 5.0 g/dL Final BILIRUBIN, TOTAL 04/15/2023 0.6 0.2 - 1.3 mg/dL Final TOTAL PROTEIN 04/15/2023 7.0 6.3 - 8.2 g/dL Final eGFR 04/15/2023 >90.0 >60.0 mL/min/1.73m*2 Final Calculation based on the Chronic Kidney Disease Epidemiology Collaboration (CKD-EPI) equation refit without adjustment for race Infusion on 04/08/2023 Component Date Value Ref Range Status SODIUM 04/08/2023 138 135 - 145 mmol/L Final POTASSIUM 04/08/2023 4.1 3.5 - 5.1 mmol/L Final CHLORIDE 04/08/2023 106 98 - 107 mmol/L Final CARBON DIOXIDE 04/08/2023 30 22 - 30 mmol/L Final ANION GAP 04/08/2023 2 (L) 3 - 13 mmol/L Final UREA NITROGEN 04/08/2023 21 (H) 7 - 17 mg/dL Final CREATININE 04/08/2023 0.60 0.52 - 1.04 mg/dL Final GLUCOSE 04/08/2023 88 70 - 100 mg/dL Final CALCIUM 04/08/2023 8.7 8.4 - 10.4 mg/dL Final AST (SGOT) 04/08/2023 37 15 - 46 U/L Final ALT 04/08/2023 42 (H) 0 - 34 U/L Final ALKALINE PHOSPHATASE 04/08/2023 86 38 - 126 U/L Final ALBUMIN 04/08/2023 4.0 3.5 - 5.0 g/dL Final BILIRUBIN, TOTAL 04/08/2023 0.6 0.2 - 1.3 mg/dL Final TOTAL PROTEIN 04/08/2023 6.6 6.3 - 8.2 g/dL Final eGFR 04/08/2023 >90.0 >60.0 mL/min/1.73m*2 Final Calculation based on the Chronic Kidney Disease Epidemiology Collaboration (CKD-EPI) equation refit without adjustment for race Auto WBC 04/08/2023 4.7 3.6 - 10.7 10*3/uL Final RBC 04/08/2023 4.13 3.8 - 5.20 10*6/uL Final Hemoglobin 04/08/2023 12.8 11.7 - 16.0 g/dL Final Hematocrit 04/08/2023 39.1 35.0 - 47.0 % Final MCV 04/08/2023 94.7 80.0 - 98.0 fL Final MCH 04/08/2023 31.0 26.0 - 34.0 pg Final MCHC 04/08/2023 32.7 32.0 - 36.0 % Final RDW 04/08/2023 14.0 11.5 - 14.5 % Final Platelets 04/08/2023 186 140 - 440 10*3/uL Final MPV 04/08/2023 10.1 7.4 - 12.4 fL Final MPV is a calculated measurement using platelet volume ratio Neutrophils Relative 04/08/2023 72.8 40.0 - 80.0 % Final Lymphocytes Relative 04/08/2023 18.6 (L) 20.0 - 40.0 % Final Monocytes Relative 04/08/2023 3.2 2.0 - 10.0 % Final Eosinophils Relative 04/08/2023 2.6 1.0 - 6.0 % Final Basophils Relative 04/08/2023 0.9 0.0 - 2.0 % Final Immature Grans % 04/08/2023 1.9 (H) <=0.0 % Final Neutrophils Absolute 04/08/2023 3.4 1.8 - 7.0 10*3/uL Final Lymphocytes Absolute 04/08/2023 0.9 (L) 1.0 - 4.3 10*3/uL Final Monocytes Absolute 04/08/2023 0.2 0.0 - 0.8 10*3/uL Final Eosinophils Absolute 04/08/2023 0.1 0.0 - 0.5 10*3/uL Final Basophils Absolute 04/08/2023 0.0 0.0 - 0.2 10*3/uL Final Immature Grans Absolute 04/08/2023 0.1 (H) <=0.0 10*3/uL Final Infusion on 04/01/2023 Component Date Value Ref Range Status Auto WBC 04/01/2023 13.4 (H) 3.6 - 10.7 10*3/uL Final RBC 04/01/2023 4.59 3.8 - 5.20 10*6/uL Final Hemoglobin 04/01/2023 14.1 11.7 - 16.0 g/dL Final Hematocrit 04/01/2023 42.8 35.0 - 47.0 % Final MCV 04/01/2023 93.2 80.0 - 98.0 fL Final MCH 04/01/2023 30.7 26.0 - 34.0 pg Final MCHC 04/01/2023 32.9 32.0 - 36.0 % Final RDW 04/01/2023 13.8 11.5 - 14.5 % Final Platelets 04/01/2023 221 140 - 440 10*3/uL Final MPV 04/01/2023 9.8 7.4 - 12.4 fL Final MPV is a calculated measurement using platelet volume ratio Neutrophils Relative 04/01/2023 91.8 (H) 40.0 - 80.0 % Final Lymphocytes Relative 04/01/2023 5.2 (L) 20.0 - 40.0 % Final Monocytes Relative 04/01/2023 2.6 2.0 - 10.0 % Final Eosinophils Relative 04/01/2023 0.0 (L) 1.0 - 6.0 % Final Basophils Relative 04/01/2023 0.1 0.0 - 2.0 % Final Immature Grans % 04/01/2023 0.3 (H) <=0.0 % Final Neutrophils Absolute 04/01/2023 12.3 (H) 1.8 - 7.0 10*3/uL Final Lymphocytes Absolute 04/01/2023 0.7 (L) 1.0 - 4.3 10*3/uL Final Monocytes Absolute 04/01/2023 0.4 0.0 - 0.8 10*3/uL Final Eosinophils Absolute 04/01/2023 0.0 0.0 - 0.5 10*3/uL Final Basophils Absolute 04/01/2023 0.0 0.0 - 0.2 10*3/uL Final Immature Grans Absolute 04/01/2023 0.0 <=0.0 10*3/uL Final SODIUM 04/01/2023 138 135 - 145 mmol/L Final POTASSIUM 04/01/2023 3.9 3.5 - 5.1 mmol/L Final CHLORIDE 04/01/2023 107 98 - 107 mmol/L Final CARBON DIOXIDE 04/01/2023 23 22 - 30 mmol/L Final ANION GAP 04/01/2023 8 3 - 13 mmol/L Final UREA NITROGEN 04/01/2023 21 (H) 7 - 17 mg/dL Final CREATININE 04/01/2023 0.55 0.52 - 1.04 mg/dL Final GLUCOSE 04/01/2023 196 (H) 70 - 100 mg/dL Final CALCIUM 04/01/2023 9.0 8.4 - 10.4 mg/dL Final AST (SGOT) 04/01/2023 28 15 - 46 U/L Final ALT 04/01/2023 20 0 - 34 U/L Final ALKALINE PHOSPHATASE 04/01/2023 98 38 - 126 U/L Final ALBUMIN 04/01/2023 4.5 3.5 - 5.0 g/dL Final BILIRUBIN, TOTAL 04/01/2023 0.5 0.2 - 1.3 mg/dL Final TOTAL PROTEIN 04/01/2023 7.5 6.3 - 8.2 g/dL Final eGFR 04/01/2023 >90.0 >60.0 mL/min/1.73m*2 Final Calculation based on the Chronic Kidney Disease Epidemiology Collaboration (CKD-EPI) equation refit without adjustment for race Hospital Outpatient Visit on 03/26/2023 Component Date Value Ref Range Status IVSd 03/26/2023 0.9 0.6 - 0.9 cm Final LVIDd 03/26/2023 4.6 3.9 - 5.3 cm Final LVIDs 03/26/2023 3.0 cm Final LVOT Diameter 03/26/2023 1.9 cm Final LVPWd 03/26/2023 0.7 0.6 - 0.9 cm Final Global Longitudinal Strain 03/26/2023 -17.0 % Final EF BP 03/26/2023 63 55 - 100 % Final LV Ejection Fraction A2C 03/26/2023 59 % Final LV Ejection Fraction A4C 03/26/2023 67 % Final LV EDV A2C 03/26/2023 70 mL Final LV EDV A4C 03/26/2023 92 mL Final LV EDV BP 03/26/2023 81 56 - 104 mL Final LV ESV A2C 03/26/2023 29 mL Final LV ESV A4C 03/26/2023 31 mL Final LV ESV BP 03/26/2023 30 19 - 49 mL Final LVOT Cardiac Output 03/26/2023 4.1 liter/minute Final LVOT Peak Gradient 03/26/2023 3 mmHg Final LVOT Mean Gradient 03/26/2023 2 mmHg Final LVOT SV 03/26/2023 56.7 ml Final LVOT Peak Velocity 03/26/2023 0.9 m/s Final LVOT VTI 03/26/2023 20.0 cm Final RV Free Wall Peak S' 03/26/2023 11 cm/s Final LA Volume A/L 03/26/2023 55 mL Final LA Volume 2C 03/26/2023 71 (A) 22 - 52 mL Final LA Volume 4C 03/26/2023 37 22 - 52 mL Final AR PHT 03/26/2023 578.7 ms Final AR Max Velocity PISA 03/26/2023 3.9 m/s Final MV A Velocity 03/26/2023 1.10 m/s Final MV E Wave Deceleration Time 03/26/2023 198.7 ms Final MV E Velocity 03/26/2023 0.72 m/s Final LV E' Lateral Velocity 03/26/2023 8 cm/s Final LV E' Septal Velocity 03/26/2023 7 cm/s Final TAPSE 03/26/2023 2.4 1.7 cm Final Fractional Shortening 2D 03/26/2023 35 28 - 44 % Final LV ESV Index BP 03/26/2023 15 mL/m2 Final LV EDV Index BP 03/26/2023 41 mL/m2 Final LV ESV Index A4C 03/26/2023 16 mL/m2 Final LV EDV Index A4C 03/26/2023 46 mL/m2 Final LV ESV Index A2C 03/26/2023 15 mL/m2 Final LV EDV Index A2C 03/26/2023 35 mL/m2 Final LVIDd Index 03/26/2023 2.31 cm/m2 Final LVIDs Index 03/26/2023 1.51 cm/m2 Final LV RWT Ratio 03/26/2023 0.30 Final LV Mass 2D 03/26/2023 117.9 67 - 162 g Final LV Mass 2D Index 03/26/2023 59.2 43 - 95 g/m2 Final MV E/A 03/26/2023 0.65 Final E/E' Ratio (Averaged) 03/26/2023 9.64 Final E/E' Lateral 03/26/2023 9.00 Final E/E' Septal 03/26/2023 10.29 Final LA Volume Index A/L 03/26/2023 28 16 - 34 mL/m2 Final LVOT Stroke Volume Index 03/26/2023 28.5 mL/m2 Final LVOT Area 03/26/2023 2.8 cm2 Final LA Volume Index 2C 03/26/2023 36 (A) 16 - 34 mL/m2 Final LA Volume Index 4C 03/26/2023 19 16 - 34 mL/m2 Final Est. RA Pressure 03/26/2023 3 mmHg Final IVC Diameter 03/26/2023 1.6 cm Final Imaging Reviewed: as per HPI - I have reviewed all available pertinent laboratory, imaging and pathology results with the patient and/or family members today. Assessment/Plan: Diagnosis Plan 1. Malignant neoplasm of upper-outer quadrant of left breast in female, estrogen receptor positive (HCC) 1) stage 1A left breast cancer ER+/WV+/HER2+ pT1c pN0 cM0 s/p left partial mastectomy and SLNBx to clear margins on 02/18/23 - Today, we again reviewed the diagnosis, staging, natural history, prognosis, and treatment options for her stage 1 left breast cancer. NCCN guidelines were reviewed. Treatment intent is curative. - will proceed with adjuvant chemotherapy with Taxol 60mg/m2 (doses reduced by 25% with cycle 3 due to neutropenia) and herceptin weekly for 12 cycles followed by Herceptin every 3 weeks to complete 1 year of treatment. Today is cycle 3 day 1. Potential side effects and anticipated benefits of Taxol and Herceptin were reviewed with the patient and they agreed to proceed with treatment. See chemo orders for dosing. - After the weekly Taxol is completed, she will proceed with radiation therapy with Dr. Diego. - After radiation therapy is completed, adjuvant endocrine therapy with an AI for 5 years will be recommended. - echo prior to treatment on 03/26/23 with EF 63%. Monitor every 3 months - supportive care. See lab orders with chemotherapy. - consider mediport placement if needed All questions were answered to the satisfaction of the patient and/or family. Return to office for cycle 5, or sooner if worrisome signs/symptoms arise. Stevie Escobedo DO Hematology/Medical Oncology documented in this encounter [facility] 04-22-2023 History of Present illness Narrative Patient arrived ambulatory with spouse for delayed cycle 3 Trazimera/Taxol. Patient had fall on Fri. Denies hitting head or LOC, patient not on anticoagulants. Patient denies injury. Patient reports hair thinning. Denies nausea, concerns for infection or neuropathy. PIV inserted in RFA, blood for CBC and CMP obtained and sent to lab.ECHO from 03-26 shows EF of 63%. 0837- Patient escorted to private room for office visit with physician. 0851- patient returned to infusion suite Patient tolerated infusions well. Vitals obtained post administration. PIV d/c'd angio cath intact. Patient aware of next appointment. Patient stable and ambulatory upon discharge. documented in this encounter [facility] 04-08-2023 History of Present illness Narrative Hematology/Oncology Office Visit Oncology History: 1) stage 1A left breast cancer, invasive ductal carcinoma grade 3. ER+ WV+ HER2+. cT1b N0 M0; pT1c N0 M0, diagnosed 01/28/23. - Patient is a 78 yo F who presented with an abnormal screening mammogram of the upper outer quadrant of the left breast on 11/27/22. Diagnostic imaging and ultrasound were performed on 01/21/2023: a 0.9 x 0.9 x 1 cm irregular mass in the left breast. Biopsy was performed at [facility] on 01/28/2023 confirming grade 3 invasive ductal carcinoma ER positive 100%, WV positive 70% and HER2 positive at 3+. The patient underwent lumpectomy and sentinel node removal on 02/18/[address] Choi at [facility]: pathology revealed grade 3 invasive ductal carcinoma measuring 1.9 cm. There was focal DCIS and extensive lymphovascular invasion. Margins were negative for invasive and in situ component at greater than 2 mm. 6 axillary nodes were removed: 5 sentinel and 1 nonsentinel. All were negative. Pathologically staged [id number]. - she was referred to [facility] for medical and radiation oncology. Her case was reviewed at our tumor board and adjuvant chemotherapy, radiation, and AI therapy were recommended. She started weekly taxol and herceptin on 04/01/23. HPI: Madiha Perales is a 78 y.o. female who comes in today for cycle 2 of weekly taxol and herceptin. She is accompanied by her and daughter. She tolerated the first cycle of chemotherapy well. No nausea. Appetite good. No weight loss. No neuropathy. Recall, patient has Parkinson's and had a stroke a few years ago, but is generally doing well at home. She is active the majority of the day and continues to take care of the house. She does have some mild expressive aphasia. She has a good appetite. +fatigue. No weight loss or bone pain. No headaches, chest pain, or shortness of breath. Past Medical History: Diagnosis Date Allergic rhinitis Anxiety Back pain Lower back pain Breast calcifications on mammogram Dementia (HCC) Depression Eczema H/O colonoscopy Hemorrhoid Hx of rosacea Lower extremity edema MARCY (obstructive sleep apnea) The patient wears CPAP Parkinson disease Stroke ([facility]) 2009 Torn meniscus Uterine cancer ([facility]) ([facility]) 2005 Past Surgical History: Procedure Laterality Date BREAST LUMPECTOMY 02/18/2023 Left breast Lumpectomy and sentinel lymph node biopsy BREAST LUMPECTOMY Left 2013 Benign left breast lumpectomy CATARACT EXTRACTION, BILATERAL 2012 Bilateral cataract surgery HYSTERECTOMY 2005 Total Hysterectomy KNEE ARTHROSCOPY Right Patient Active Problem List Diagnosis Date Noted Memory loss 03/18/2023 Pigmented skin lesion suspicious for malignant neoplasm 03/18/2023 Malignant neoplasm of upper-outer quadrant of left breast in female, estrogen receptor positive ([facility]) 03/18/2023 Edema of both lower extremities 02/05/2023 Parkinsonism 02/05/2023 Allergic reaction to bee sting 10/29/2022 Allergic rhinitis 10/29/2022 Eczema 10/29/2022 Eczema 10/29/2022 Elevated TSH 10/29/2022 External hemorrhoids 10/29/2022 Hair loss 10/29/2022 Low back pain 10/29/2022 Menopausal state 10/29/2022 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[facility]) 10/29/2022 Mixed anxiety depressive disorder 10/29/2022 Obesity (BMI 30.0-34.9) 10/29/2022 Obstructive sleep apnea syndrome 10/29/2022 Falling 10/29/2022 Seborrheic keratosis 10/29/2022 Rosacea, acne 10/15/2022 Hemangioma of skin and subcutaneous tissue 04/24/2016 Breast calcifications on mammogram 07/24/2013 Cerebrovascular accident (CVA) ([facility]) 06/23/2009 Social History Tobacco Use Smoking status: Never Smokeless tobacco: Never Vaping Use Vaping Use: Never used Substance Use Topics Alcohol use: Not Currently Drug use: Never Family History Problem Relation Name Age of Onset Breast cancer Mother Lung cancer Father Colon cancer Paternal Grandfather Allergies Allergen Reactions Alendronate Unknown and Other Cephalexin Unknown Dye [Gadolinium] Escitalopram Other and Unknown Iodine Other reaction(s): Hives and/or rash Nickel Unknown Penicillins Unknown Other reaction(s): Intolerance-unknown Pregabalin Unknown Salicylates Other and Unknown D/t HX of CVA Iodinated Contrast Media Hives Hives x 5 locations, redness of right eye. Current Outpatient Medications Medication Sig Dispense Refill carbidopa-levodopa (Sinemet) 25-100 MG tablet every 8 hours. dexAMETHasone (Decadron) 4 MG tablet Take 1 tablet (4 mg) by mouth in the morning and 1 tablet (4 mg) in the evening. Take with meals. Do all this for 1 day. Take 6 hours and 12 hours prior to first cycle of chemotherapy.. 2 tablet 0 DULoxetine (Cymbalta) [address] capsule Take 1 capsule (20 mg) by mouth once daily. loratadine (Claritin) 10 MG tablet Take 10 mg by mouth daily. memantine (Namenda) 5 MG tablet Take 1 tablet by mouth daily. MULTIPLE VITAMIN PO Take 1 capsule by mouth in the morning. ondansetron (Zofran) 8 MG tablet Take 1 tablet (8 mg) by mouth every 8 hours as needed for nausea. 60 tablet 1 prochlorperazine (Compazine) 10 MG tablet Take 1 tablet (10 mg) by mouth every 6 hours as needed for nausea. 90 tablet 1 psyllium (Metamucil) 28.3 % powder Take 3.4 g of fiber by mouth daily. No current facility-administered medications for this visit. Facility-Administered Medications Ordered in Other Visits Medication Dose Route Frequency Provider Last Rate Last Admin diphenhydrAMINE (BENADryl) 50 mg, famotidine (Pepcid) 20 mg in sodium chloride 0.9 % 50 mL IVPB IntraVENous Once Stevie E Fanny, DO ondansetron (Zofran) 8 mg, dexAMETHasone (Decadron) 12 mg in sodium chloride 0.9 % 50 mL IVPB IntraVENous Once Stevie E Fanny, DO PACLitaxel (Taxol) 162 mg in sodium chloride 0.9 % 250 mL chemo IVPB 80 mg/m2 (Treatment Plan Recorded) IntraVENous Once Stevie E Fanny, DO sodium chloride 0.9 % infusion 5-250 mL/hr IntraVENous Once PRN Stevie E Fanny, DO trastuzumab-qyyp (Trazimera) 184.6 mg in sodium chloride 0.9 % 250 mL chemo IVPB 2 mg/kg (Treatment Plan Recorded) IntraVENous Once Stevie E Fanny, DO Review of Systems Constitutional: Positive for fatigue. Negative for appetite change, chills, diaphoresis, fever and unexpected weight change. HENT: Negative for dental problem, mouth sores, nosebleeds, sneezing, sore throat, tinnitus, trouble swallowing and voice change. Eyes: Negative for photophobia, pain and visual disturbance. Respiratory: Negative for cough, shortness of breath and wheezing. Cardiovascular: Negative for chest pain, palpitations and leg swelling. Gastrointestinal: Negative for abdominal distention, abdominal pain, blood in stool, constipation, diarrhea, nausea and vomiting. Endocrine: Negative for cold intolerance and heat intolerance. Genitourinary: Negative for difficulty urinating, frequency, hematuria and urgency. Musculoskeletal: Negative for arthralgias, back pain, gait problem and myalgias. Skin: Negative for pallor and rash. Allergic/Immunologic: Negative for immunocompromised state. Neurological: Positive for speech difficulty and weakness. Negative for dizziness, syncope, light-headedness, numbness and headaches. Hematological: Negative for adenopathy. Does not bruise/bleed easily. Psychiatric/Behavioral: Negative for confusion and sleep disturbance. The patient is not nervous/anxious. All other systems reviewed and are negative. Vitals: 04/08/23 0959 BP: 127/64 BP Location: Right arm Patient Position: Sitting Pulse: 74 Temp: 98.4 F (36.9 C) TempSrc: Temporal SpO2: 98% Weight: 203 lb 8 oz (92.3 kg) Height: 5' 5 (1.651 m) ECOG PS = 2 Physical Exam Vitals and nursing note reviewed. Constitutional: General: She is not in acute distress. Appearance: Normal appearance. She is not ill-appearing. HENT: Head: Normocephalic and atraumatic. Nose: Nose normal. Mouth/Throat: Pharynx: Oropharynx is clear. No oropharyngeal exudate or posterior oropharyngeal erythema. Eyes: General: No scleral icterus. Extraocular Movements: Extraocular movements intact. Conjunctiva/sclera: Conjunctivae normal. Pupils: Pupils are equal, round, and reactive to light. Cardiovascular: Rate and Rhythm: Normal rate and regular rhythm. Heart sounds: Normal heart sounds. No murmur heard. Pulmonary: Effort: Pulmonary effort is normal. No respiratory distress. Breath sounds: Normal breath sounds. No wheezing. Abdominal: General: Abdomen is flat. Bowel sounds are normal. There is no distension. Palpations: Abdomen is soft. There is no mass. Tenderness: There is no abdominal tenderness. There is no guarding. Musculoskeletal: General: No swelling or tenderness. Normal range of motion. Cervical back: Normal range of motion and neck supple. Right lower leg: No edema. Left lower leg: No edema. Lymphadenopathy: Cervical: No cervical adenopathy. Skin: General: Skin is warm and dry. Findings: No bruising or rash. Neurological: Mental Status: She is alert and oriented to person, place, and time. Mental status is at baseline. Motor: Weakness present. Psychiatric: Mood and Affect: Mood normal. Thought Content: Thought content normal. Imaging/Labs: Infusion on 04/08/2023 Component Date Value Ref Range Status SODIUM 04/08/2023 138 135 - 145 mmol/L Final POTASSIUM 04/08/2023 4.1 3.5 - 5.1 mmol/L Final CHLORIDE 04/08/2023 106 98 - 107 mmol/L Final CARBON DIOXIDE 04/08/2023 30 22 - 30 mmol/L Final ANION GAP 04/08/2023 2 (L) 3 - 13 mmol/L Final UREA NITROGEN 04/08/2023 21 (H) 7 - 17 mg/dL Final CREATININE 04/08/2023 0.60 0.52 - 1.04 mg/dL Final GLUCOSE 04/08/2023 88 70 - 100 mg/dL Final CALCIUM 04/08/2023 8.7 8.4 - 10.4 mg/dL Final AST (SGOT) 04/08/2023 37 15 - 46 U/L Final ALT 04/08/2023 42 (H) 0 - 34 U/L Final ALKALINE PHOSPHATASE 04/08/2023 86 38 - 126 U/L Final ALBUMIN 04/08/2023 4.0 3.5 - 5.0 g/dL Final BILIRUBIN, TOTAL 04/08/2023 0.6 0.2 - 1.3 mg/dL Final TOTAL PROTEIN 04/08/2023 6.6 6.3 - 8.2 g/dL Final eGFR 04/08/2023 >90.0 >60.0 mL/min/1.73m*2 Final Calculation based on the Chronic Kidney Disease Epidemiology Collaboration (CKD-EPI) equation refit without adjustment for race Auto WBC 04/08/2023 4.7 3.6 - 10.7 10*3/uL Final RBC 04/08/2023 4.13 3.8 - 5.20 10*6/uL Final Hemoglobin 04/08/2023 12.8 11.7 - 16.0 g/dL Final Hematocrit 04/08/2023 39.1 35.0 - 47.0 % Final MCV 04/08/2023 94.7 80.0 - 98.0 fL Final MCH 04/08/2023 31.0 26.0 - 34.0 pg Final MCHC 04/08/2023 32.7 32.0 - 36.0 % Final RDW 04/08/2023 14.0 11.5 - 14.5 % Final Platelets 04/08/2023 186 140 - 440 10*3/uL Final MPV 04/08/2023 10.1 7.4 - 12.4 fL Final MPV is a calculated measurement using platelet volume ratio Neutrophils Relative 04/08/2023 72.8 40.0 - 80.0 % Final Lymphocytes Relative 04/08/2023 18.6 (L) 20.0 - 40.0 % Final Monocytes Relative 04/08/2023 3.2 2.0 - 10.0 % Final Eosinophils Relative 04/08/2023 2.6 1.0 - 6.0 % Final Basophils Relative 04/08/2023 0.9 0.0 - 2.0 % Final Immature Grans % 04/08/2023 1.9 (H) <=0.0 % Final Neutrophils Absolute 04/08/2023 3.4 1.8 - 7.0 10*3/uL Final Lymphocytes Absolute 04/08/2023 0.9 (L) 1.0 - 4.3 10*3/uL Final Monocytes Absolute 04/08/2023 0.2 0.0 - 0.8 10*3/uL Final Eosinophils Absolute 04/08/2023 0.1 0.0 - 0.5 10*3/uL Final Basophils Absolute 04/08/2023 0.0 0.0 - 0.2 10*3/uL Final Immature Grans Absolute 04/08/2023 0.1 (H) <=0.0 10*3/uL Final Infusion on 04/01/2023 Component Date Value Ref Range Status Auto WBC 04/01/2023 13.4 (H) 3.6 - 10.7 10*3/uL Final RBC 04/01/2023 4.59 3.8 - 5.20 10*6/uL Final Hemoglobin 04/01/2023 14.1 11.7 - 16.0 g/dL Final Hematocrit 04/01/2023 42.8 35.0 - 47.0 % Final MCV 04/01/2023 93.2 80.0 - 98.0 fL Final MCH 04/01/2023 30.7 26.0 - 34.0 pg Final MCHC 04/01/2023 32.9 32.0 - 36.0 % Final RDW 04/01/2023 13.8 11.5 - 14.5 % Final Platelets 04/01/2023 221 140 - 440 10*3/uL Final MPV 04/01/2023 9.8 7.4 - 12.4 fL Final MPV is a calculated measurement using platelet volume ratio Neutrophils Relative 04/01/2023 91.8 (H) 40.0 - 80.0 % Final Lymphocytes Relative 04/01/2023 5.2 (L) 20.0 - 40.0 % Final Monocytes Relative 04/01/2023 2.6 2.0 - 10.0 % Final Eosinophils Relative 04/01/2023 0.0 (L) 1.0 - 6.0 % Final Basophils Relative 04/01/2023 0.1 0.0 - 2.0 % Final Immature Grans % 04/01/2023 0.3 (H) <=0.0 % Final Neutrophils Absolute 04/01/2023 12.3 (H) 1.8 - 7.0 10*3/uL Final Lymphocytes Absolute 04/01/2023 0.7 (L) 1.0 - 4.3 10*3/uL Final Monocytes Absolute 04/01/2023 0.4 0.0 - 0.8 10*3/uL Final Eosinophils Absolute 04/01/2023 0.0 0.0 - 0.5 10*3/uL Final Basophils Absolute 04/01/2023 0.0 0.0 - 0.2 10*3/uL Final Immature Grans Absolute 04/01/2023 0.0 <=0.0 10*3/uL Final SODIUM 04/01/2023 138 135 - 145 mmol/L Final POTASSIUM 04/01/2023 3.9 3.5 - 5.1 mmol/L Final CHLORIDE 04/01/2023 107 98 - 107 mmol/L Final CARBON DIOXIDE 04/01/2023 23 22 - 30 mmol/L Final ANION GAP 04/01/2023 8 3 - 13 mmol/L Final UREA NITROGEN 04/01/2023 21 (H) 7 - 17 mg/dL Final CREATININE 04/01/2023 0.55 0.52 - 1.04 mg/dL Final GLUCOSE 04/01/2023 196 (H) 70 - 100 mg/dL Final CALCIUM 04/01/2023 9.0 8.4 - 10.4 mg/dL Final AST (SGOT) 04/01/2023 28 15 - 46 U/L Final ALT 04/01/2023 20 0 - 34 U/L Final ALKALINE PHOSPHATASE 04/01/2023 98 38 - 126 U/L Final ALBUMIN 04/01/2023 4.5 3.5 - 5.0 g/dL Final BILIRUBIN, TOTAL 04/01/2023 0.5 0.2 - 1.3 mg/dL Final TOTAL PROTEIN 04/01/2023 7.5 6.3 - 8.2 g/dL Final eGFR 04/01/2023 >90.0 >60.0 mL/min/1.73m*2 Final Calculation based on the Chronic Kidney Disease Epidemiology Collaboration (CKD-EPI) equation refit without adjustment for race Hospital Outpatient Visit on 03/26/2023 Component Date Value Ref Range Status IVSd 03/26/2023 0.9 0.6 - 0.9 cm Final LVIDd 03/26/2023 4.6 3.9 - 5.3 cm Final LVIDs 03/26/2023 3.0 cm Final LVOT Diameter 03/26/2023 1.9 cm Final LVPWd 03/26/2023 0.7 0.6 - 0.9 cm Final Global Longitudinal Strain 03/26/2023 -17.0 % Final EF BP 03/26/2023 63 55 - 100 % Final LV Ejection Fraction A2C 03/26/2023 59 % Final LV Ejection Fraction A4C 03/26/2023 67 % Final LV EDV A2C 03/26/2023 70 mL Final LV EDV A4C 03/26/2023 92 mL Final LV EDV BP 03/26/2023 81 56 - 104 mL Final LV ESV A2C 03/26/2023 29 mL Final LV ESV A4C 03/26/2023 31 mL Final LV ESV BP 03/26/2023 30 19 - 49 mL Final LVOT Cardiac Output 03/26/2023 4.1 liter/minute Final LVOT Peak Gradient 03/26/2023 3 mmHg Final LVOT Mean Gradient 03/26/2023 2 mmHg Final LVOT SV 03/26/2023 56.7 ml Final LVOT Peak Velocity 03/26/2023 0.9 m/s Final LVOT VTI 03/26/2023 20.0 cm Final RV Free Wall Peak S' 03/26/2023 11 cm/s Final LA Volume A/L 03/26/2023 55 mL Final LA Volume 2C 03/26/2023 71 (A) 22 - 52 mL Final LA Volume 4C 03/26/2023 37 22 - 52 mL Final AR PHT 03/26/2023 578.7 ms Final AR Max Velocity PISA 03/26/2023 3.9 m/s Final MV A Velocity 03/26/2023 1.10 m/s Final MV E Wave Deceleration Time 03/26/2023 198.7 ms Final MV E Velocity 03/26/2023 0.72 m/s Final LV E' Lateral Velocity 03/26/2023 8 cm/s Final LV E' Septal Velocity 03/26/2023 7 cm/s Final TAPSE 03/26/2023 2.4 1.7 cm Final Fractional Shortening 2D 03/26/2023 35 28 - 44 % Final LV ESV Index BP 03/26/2023 15 mL/m2 Final LV EDV Index BP 03/26/2023 41 mL/m2 Final LV ESV Index A4C 03/26/2023 16 mL/m2 Final LV EDV Index A4C 03/26/2023 46 mL/m2 Final LV ESV Index A2C 03/26/2023 15 mL/m2 Final LV EDV Index A2C 03/26/2023 35 mL/m2 Final LVIDd Index 03/26/2023 2.31 cm/m2 Final LVIDs Index 03/26/2023 1.51 cm/m2 Final LV RWT Ratio 03/26/2023 0.30 Final LV Mass 2D 03/26/2023 117.9 67 - 162 g Final LV Mass 2D Index 03/26/2023 59.2 43 - 95 g/m2 Final MV E/A 03/26/2023 0.65 Final E/E' Ratio (Averaged) 03/26/2023 9.64 Final E/E' Lateral 03/26/2023 9.00 Final E/E' Septal 03/26/2023 10.29 Final LA Volume Index A/L 03/26/2023 28 16 - 34 mL/m2 Final LVOT Stroke Volume Index 03/26/2023 28.5 mL/m2 Final LVOT Area 03/26/2023 2.8 cm2 Final LA Volume Index 2C 03/26/2023 36 (A) 16 - 34 mL/m2 Final LA Volume Index 4C 03/26/2023 19 16 - 34 mL/m2 Final Est. RA Pressure 03/26/2023 3 mmHg Final IVC Diameter 03/26/2023 1.6 cm Final Lab Requisition on 03/14/2023 Component Date Value Ref Range Status Case Report 03/14/2023 Final Value:Surgical Pathology Case: [id number] Authorizing Provider: Vicki Diego MD Collected: 03/14/2023 1008 Ordering Location: [facility] Laboratory Received: 03/14/2023 0812 Pathologist: Fozia Ponce MD Specimen: Final Diagnosis 03/14/2023 Final Value:This result contains rich text formatting which cannot be displayed here. Comment 03/14/2023 Final Value:This result contains rich text formatting which cannot be displayed here. Clinical Information 03/14/2023 Final Value:This result contains rich text formatting which cannot be displayed here. Gross Description 03/14/2023 Final Value:This result contains rich text formatting which cannot be displayed here. Disclaimer 03/14/2023 Final Value:This result contains rich text formatting which cannot be displayed here. Pathologist Interpretation Location 03/14/2023 [facility], [address] [place] [id number], CLIA: [id number]; Joint Commission: [id number]; CAP: [id number] Final Imaging Reviewed: as per HPI - I have reviewed all available pertinent laboratory, imaging and pathology results with the patient and/or family members today. Assessment/Plan: Diagnosis Plan 1. Malignant neoplasm of upper-outer quadrant of left breast in female, estrogen receptor positive (HCC) 1) stage 1A left breast cancer ER+/WV+/HER2+ pT1c pN0 cM0 s/p left partial mastectomy and SLNBx to clear margins on 02/18/23 - Today, we again reviewed the diagnosis, staging, natural history, prognosis, and treatment options for her stage 1 left breast cancer. NCCN guidelines were reviewed. Treatment intent is curative. - will proceed with adjuvant chemotherapy with Taxol 80mg/m2 and herceptin weekly for 12 cycles followed by Herceptin every 3 weeks to complete 1 year of treatment. Today is cycle 2 day 1. Potential side effects and anticipated benefits of Taxol and Herceptin were reviewed with the patient and they agreed to proceed with treatment. See chemo orders for dosing. - After the weekly Taxol is completed, she will proceed with radiation therapy with Dr. Diego. - After radiation therapy is completed, adjuvant endocrine therapy with an AI for 5 years will be recommended. - echo prior to treatment on 03/26/23 with EF 63%. Monitor every 3 months - supportive care. See lab orders with chemotherapy. - consider mediport placement if needed All questions were answered to the satisfaction of the patient and/or family. Return to office for cycle 4, or sooner if worrisome signs/symptoms arise. Stevie Escobedo DO Hematology/Medical Oncology documented in this encounter [email or web address] 04-08-2023 History of Present illness Narrative Patient arrived for cycle 2 Taxol and Trazimera. PIV inserted in RFA, blood for CBC and CMP sent to lab. Patient denies any side effects from cycle 1. ECHO from 03-26 shows EF of 63%. 1042- Patient and family escorted to private room for OV with physician. 1101 - Patient returned to infusion center Patient tolerated Trazimera infusion without complaint. Patient tolerated Taxol infusion without complaint. Vitals obtained post administration. PIV d/c'd angio cath intact.Patient stable, ambulatory and aware of next appt. documented in this encounter [email or web address] 04-08-2023 History of Present illness Narrative Patient arrived for cycle 2 Taxol and Trazimera. PIV inserted in RFA, blood for CBC and CMP sent to lab. Patient denies any side effects from cycle 1. ECHO from 03-26 shows EF of 63%. 1042- Patient and family escorted to private room for OV with physician. 1101 - Patient returned to infusion center Patient tolerated Trazimera infusion without complaint. Patient tolerated Taxol infusion without complaint. Vitals obtained post administration. PIV d/c'd angio cath intact.Patient stable, ambulatory and aware of next appt. documented in this encounter [email or web address] 04-01-2023 History of Present illness Narrative Patient arrived for cycle 1 day 1 Taxol/Traziumera. Consent and chemo teaching completed 03-31-23. PIV inserted in LFA, blood for CBC and CMP obtained and sent to lab. ECHO from 03-26-23 shows EF of 63%. Labs and Poc today reviewed with patient. Use of call light, location of restrooms and orientation to infusion suite provided. PO Tylenol administered prior to Trazimera loading dose. Patient tolerated Trazimera dose well. Vitals obtained prior to Taxol administration, and Q 15 min, patient tolerated well. PIV d/c'd. AVS provided. Patient stable and ambulatory upon discharge. documented in this encounter [email or web address] 03-31-2023 History of Present illness Narrative Chemotherapy teaching completed with patient and , daughter, [id number], and son for Paclitaxel, and Trazimera. Written information on Medications, symptom management given to patient and discussed. Discussed with patient the prescriptions for antiemetics, decadron prep, and OTC medications. Gave patient our chemotherapy education binder with handouts and a copy of Chemotherapy and You book. Side effects including, but not limited to: nausea, vomiting, diarrhea, constipation, fatigue, bone marrow suppression, risk for infection, hair loss/thinning, mouth sores, decreased appetite/ taste changes, renal toxicity, peripheral neuropathy, and etc discussed with patient and voiced understanding. IV access: PIV. Patient will get treatment in [place]. Reviewed role of multidisciplinary team: social work, general farm manager, financial institution treasurer. Patient agreeable to proceed with treatment and signed consent form. Copy of consent form given to patient. Advised patient of appointment information and treatment calendar given. documented in this encounter [facility] 03-24-2023 Telephone encounter Note Standing orders for pre chemo labs are pended. Prescriptions for antiemetics and decadron prep prior to first treatment are pended. [facility] 03-24-2023 Miscellaneous Notes Standing orders for pre chemo labs are pended. Prescriptions for antiemetics and decadron prep prior to first treatment are pended. documented in this encounter [facility] 03-18-2023 History of Present illness Narrative New Patient Hematology/Oncology Office Visit Consultation/Referral Reason: breast cancer Referred by: Dr. Diego Oncology History: 1) stage 1A left breast cancer, invasive ductal carcinoma grade 3. ER+ WV+ HER2+. cT1b N0 M0; pT1c N0 M0, diagnosed 01/28/23. - Patient is a 78 yo F who presented with an abnormal screening mammogram of the upper outer quadrant of the left breast on 11/27/22. Diagnostic imaging and ultrasound were performed on 01/21/2023: a 0.9 x 0.9 x 1 cm irregular mass in the left breast. Biopsy was performed at [facility] on 01/28/2023 confirming grade 3 invasive ductal carcinoma ER positive 100%, WV positive 70% and HER2 positive at 3+. The patient underwent lumpectomy and sentinel node removal on 02/18/[address] Choi at [facility]: pathology revealed grade 3 invasive ductal carcinoma measuring 1.9 cm. There was focal DCIS and extensive lymphovascular invasion. Margins were negative for invasive and in situ component at greater than 2 mm. 6 axillary nodes were removed: 5 sentinel and 1 nonsentinel. All were negative. Pathologically staged T1CN0. - she was referred to [facility] for medical and radiation oncology. Her case was reviewed at our tumor board and adjuvant chemotherapy, radiation, and AI therapy were recommended. HPI: Madiha Perales is a 78 y.o. female who comes in today for medical oncology visit for newly diagnosed breast cancer as outlined above. Records from her breast surgeon and radiation oncologist were reviewed and summarized. Patient has Parkinson's and had a stroke a few years ago, but is generally doing well at home. She is active the majority of the day and continues to take care of the house. She does have some mild expressive aphasia. She has a good appetite. +fatigue. No weight loss or bone pain. No headaches, chest pain, or shortness of breath. She is accompanied by several family members including her , daughter, son and daughter in law. Past Medical History: Diagnosis Date Allergic rhinitis Anxiety Back pain Lower back pain Breast calcifications on mammogram Dementia (HCC) Depression Eczema H/O colonoscopy Hemorrhoid Hx of rosacea Lower extremity edema MARCY (obstructive sleep apnea) The patient wears CPAP Parkinson disease (HCC) Stroke (HCC) 2009 Torn meniscus Uterine cancer (CMS/HCC) (HCC) 2005 Past Surgical History: Procedure Laterality Date BREAST LUMPECTOMY 02/18/2023 Left breast Lumpectomy and sentinel lymph node biopsy BREAST LUMPECTOMY Left 2013 Benign left breast lumpectomy CATARACT EXTRACTION, BILATERAL 2012 Bilateral cataract surgery HYSTERECTOMY 2006 Total Hysterectomy KNEE ARTHROSCOPY Right Patient Active Problem List Diagnosis Date Noted Memory loss 03/18/2023 Pigmented skin lesion suspicious for malignant neoplasm 03/18/2023 Malignant neoplasm of upper-outer quadrant of left breast in female, estrogen receptor positive (HCC) 03/18/2023 Edema of both lower extremities 02/05/2023 Parkinsonism 02/05/2023 Allergic reaction to bee sting 10/29/2022 Allergic rhinitis 10/29/2022 Eczema 10/29/2022 Eczema 10/29/2022 Elevated TSH 10/29/2022 External hemorrhoids 10/29/2022 Hair loss 10/29/2022 Low back pain 10/29/2022 Menopausal state 10/29/2022 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HCC) 10/29/2022 Mixed anxiety depressive disorder 10/29/2022 Obesity (BMI 30.0-34.9) 10/29/2022 Obstructive sleep apnea syndrome 10/29/2022 Falling 10/29/2022 Seborrheic keratosis 10/29/2022 Rosacea, acne 10/15/2022 Hemangioma of skin and subcutaneous tissue 04/24/2016 Breast calcifications on mammogram 07/24/2013 Cerebrovascular accident (CVA) ([facility]) 06/23/2009 Social History Tobacco Use Smoking status: Never Smokeless tobacco: Never Vaping Use Vaping Use: Never used Substance Use Topics Alcohol use: Not Currently Drug use: Never Family History Problem Relation Name Age of Onset Breast cancer Mother Lung cancer Father Colon cancer Paternal Grandfather Allergies Allergen Reactions Alendronate Unknown and Other Cephalexin Unknown Dye [Gadolinium] Escitalopram Other and Unknown Iodine Other reaction(s): Hives and/or rash Nickel Unknown Penicillins Unknown Other reaction(s): Intolerance-unknown Prednisone & Diphenhydramine Unknown Pregabalin Unknown Salicylates Other and Unknown Iodinated Contrast Media Hives Hives x 5 locations, redness of right eye. Current Outpatient Medications Medication Sig Dispense Refill carbidopa-levodopa (Sinemet) 25-100 MG tablet every 8 hours. DULoxetine (Cymbalta) [address] capsule Take 1 capsule (20 mg) by mouth once daily. loratadine (Claritin) 10 MG tablet Take 10 mg by mouth daily. memantine (Namenda) 5 MG tablet Take 1 tablet by mouth daily. MULTIPLE VITAMIN PO Take 1 capsule by mouth in the morning. No current facility-administered medications for this visit. Review of Systems Constitutional: Positive for fatigue. Negative for appetite change, chills, diaphoresis, fever and unexpected weight change. HENT: Negative for dental problem, mouth sores, nosebleeds, sneezing, sore throat, tinnitus, trouble swallowing and voice change. Eyes: Negative for photophobia, pain and visual disturbance. Respiratory: Negative for cough, shortness of breath and wheezing. Cardiovascular: Negative for chest pain, palpitations and leg swelling. Gastrointestinal: Negative for abdominal distention, abdominal pain, blood in stool, constipation, diarrhea, nausea and vomiting. Endocrine: Negative for cold intolerance and heat intolerance. Genitourinary: Negative for difficulty urinating, frequency, hematuria and urgency. Musculoskeletal: Negative for arthralgias, back pain, gait problem and myalgias. Skin: Negative for pallor and rash. Allergic/Immunologic: Negative for immunocompromised state. Neurological: Positive for speech difficulty and weakness. Negative for dizziness, syncope, light-headedness, numbness and headaches. Hematological: Negative for adenopathy. Does not bruise/bleed easily. Psychiatric/Behavioral: Negative for confusion and sleep disturbance. The patient is not nervous/anxious. All other systems reviewed and are negative. Vitals: 03/18/23 1335 BP: (!) 140/83 BP Location: Right arm Patient Position: Sitting Pulse: 77 Temp: 98.1 F (36.7 C) TempSrc: Temporal SpO2: 97% Weight: 203 lb 8 oz (92.3 kg) Height: 5' 5 (1.651 m) ECOG PS = 2 Physical Exam Vitals and nursing note reviewed. Constitutional: General: She is not in acute distress. Appearance: Normal appearance. She is not ill-appearing. HENT: Head: Normocephalic and atraumatic. Nose: Nose normal. Mouth/Throat: Pharynx: Oropharynx is clear. No oropharyngeal exudate or posterior oropharyngeal erythema. Eyes: General: No scleral icterus. Extraocular Movements: Extraocular movements intact. Conjunctiva/sclera: Conjunctivae normal. Pupils: Pupils are equal, round, and reactive to light. Cardiovascular: Rate and Rhythm: Normal rate and regular rhythm. Heart sounds: Normal heart sounds. No murmur heard. Pulmonary: Effort: Pulmonary effort is normal. No respiratory distress. Breath sounds: Normal breath sounds. No wheezing. Abdominal: General: Abdomen is flat. Bowel sounds are normal. There is no distension. Palpations: Abdomen is soft. There is no mass. Tenderness: There is no abdominal tenderness. There is no guarding. Musculoskeletal: General: No swelling or tenderness. Normal range of motion. Cervical back: Normal range of motion and neck supple. Right lower leg: No edema. Left lower leg: No edema. Lymphadenopathy: Cervical: No cervical adenopathy. Skin: General: Skin is warm and dry. Findings: No bruising or rash. Neurological: Mental Status: She is alert and oriented to person, place, and time. Mental status is at baseline. Motor: Weakness present. Psychiatric: Mood and Affect: Mood normal. Thought Content: Thought content normal. Imaging/Labs: Lab Requisition on 03/14/2023 Component Date Value Ref Range Status Case Report 03/14/2023 Final Value:Surgical Pathology Case: [id number] Authorizing Provider: Vicki Diego MD Collected: 03/14/2023 1008 Ordering Location: [facility] Laboratory Received: 03/14/2023 0812 Pathologist: Fozia Ponce MD Specimen: Final Diagnosis 03/14/2023 Final Value:This result contains rich text formatting which cannot be displayed here. Comment 03/14/2023 Final Value:This result contains rich text formatting which cannot be displayed here. Clinical Information 03/14/2023 Final Value:This result contains rich text formatting which cannot be displayed here. Gross Description 03/14/2023 Final Value:This result contains rich text formatting which cannot be displayed here. Disclaimer 03/14/2023 Final Value:This result contains rich text formatting which cannot be displayed here. Pathologist Interpretation Location 03/14/2023 [facility], [address] [place] [address], CLIA: [id number]; Joint Commission: [id number]; CAP: [id number] Final Imaging Reviewed: as per HPI - I have reviewed all available pertinent laboratory, imaging and pathology results with the patient and/or family members today. Assessment/Plan: Diagnosis Plan 1. Malignant neoplasm of upper-outer quadrant of left breast in female, estrogen receptor positive (HCC) Transthoracic echocardiogram (TTE) complete with contrast, bubble, strain, and 3D PRN 2. Other general symptoms and signs Transthoracic echocardiogram (TTE) complete with contrast, bubble, strain, and 3D PRN 1) stage 1A left breast cancer ER+/WV+/HER2+ pT1c pN0 cM0 s/p left partial mastectomy and SLNBx to clear margins on 02/18/23 - Today, we reviewed the diagnosis, staging, natural history, prognosis, and treatment options for her stage 1 left breast cancer. NCCN guidelines were reviewed. Treatment intent is curative. - We reviewed adjuvant treatment recommendations for her breast cancer. Adjuvant chemotherapy with Taxol 80mg/m2 weekly for 12 cycles with Herceptin for 1 year is recommended. Potential side effects and anticipated benefits of Taxol and Herceptin were reviewed with the patient and they agreed to proceed with treatment. See chemo orders for dosing. - After the weekly Taxol is completed, she will proceed with radiation therapy with Dr. Diego. - After radiation therapy is completed, adjuvant endocrine therapy with an AI for 5 years will be recommended. - echo prior to treatment and every 3 months - supportive care. See lab orders with chemotherapy. - consider mediport placement if needed All questions were answered to the satisfaction of the patient and/or family. Return to office for cycle 2, or sooner if worrisome signs/symptoms arise. I spent total time 60 minutes counseling or coordinating care, reviewing the medical record, and provided a detailed discussion as noted above. Stevie Escobedo DO Hematology/Medical Oncology documented in this encounter [facility] 03-06-2023 Consult note Formatting of th is note is different from the original. RADIATION ONCOLOGY INITIAL CONSULTATION PATIENT: Madiha Perales DATE OF SERVICE: 03/06/23 : 1945 AGE: 78 y.o. PRIMARY SITE AND HISTOPATHOLOGY: Left breast, grade 3 invasive ductal carcinoma, ER positive, WV positive, HER2 positive. STAGE: cT1b N0 M0, IA; pT1c N0 M0, IA HISTORY OF PRESENT ILLNESS: This is a 78-year-old female who was noted to have an abnormal screening mammogram of the upper outer quadrant of the left breast on 11/27/2022. The area was asymptomatic and nonpalpable. Diagnostic views and ultrasound were performed on 01/21/2023. This identified a 0.9 x 0.9 x 1 cm irregular mass in the left breast. Biopsy was performed at [facility] on 01/28/2023. This revealed grade 3 invasive ductal carcinoma measuring at least 8 mm in dimension. ER positive at 100%, WV positive at 70% and HER2 positive at 3+. The patient underwent lumpectomy and sentinel node removal on 02/18/2023. Pathology revealed grade 3 invasive ductal carcinoma measuring 1.9 cm. There was focal DCIS of high-grade. Extensive lymphovascular invasion. Margins were negative for invasive and in situ component at greater than 2 mm. 6 nodes were removed, 5 sentinel and 1 nonsentinel. All were negative. Pathologically staged T1CN0. We have been consulted to discuss postoperative radiation therapy. She is scheduled to see Dr. Escobedo on 03/18/2023 for systemic evaluation. She is accompanied by her today. The patient and her requested that our discussion be recorded for their daughter to hear. We attempted to have her on phone in real-time but she was unavailable. At this point she notes fatigue. She has had fatigue from her stroke years ago. Appetite stable. No unexplained weight loss. She has no pain. She feels that the area is healing well and she has good range of motion in the shoulder. PAST MEDICAL HISTORY: Past Medical History: Diagnosis Date Allergic rhinitis Anxiety Back pain Lower back pain Breast calcifications on mammogram Dementia ([facility]) Depression Eczema H/O colonoscopy Hemorrhoid Hx of rosacea Lower extremity edema MARCY (obstructive sleep apnea) The patient wears CPAP Parkinson disease ([facility]) Stroke ([facility]) 2009 Torn meniscus Uterine cancer ([facility]/HCC) ([facility]) 2005 PAST SURGICAL HISTORY: Past Surgical History: Procedure Laterality Date BREAST LUMPECTOMY 02/18/2023 Left breast Lumpectomy and sentinel lymph node biopsy BREAST LUMPECTOMY Left 2013 Benign left breast lumpectomy CATARACT EXTRACTION, BILATERAL 2012 Bilateral cataract surgery HYSTERECTOMY 2006 Total Hysterectomy KNEE ARTHROSCOPY Right OB History Para Term AB Living 4 4 0 0 0 4 SAB IAB Ectopic Multiple Live Births 0 0 0 0 0 # Outcome Date GA Lbr David/2nd Weight Sex Delivery Anes PTL Lv 4 Para 3 Para 2 Para 1 Para SOCIAL HISTORY: Social History Socioeconomic History Marital status: Spouse name: Not on file Number of children: Not on file Years of education: Not on file Highest education level: Not on file Occupational History Not on file Tobacco Use Smoking status: Never Smokeless tobacco: Never Vaping Use Vaping Use: Never used Substance and Sexual Activity Alcohol use: Not Currently Drug use: Never Sexual activity: Not on file Other Topics Concern Not on file Social History Narrative Not on file Social Determinants of Health Financial Resource Strain: Not on file Food Insecurity: Not on file Transportation Needs: Not on file Physical Activity: Not on file Stress: Not on file Social Connections: Not on file Intimate Partner Violence: Not on file Housing Stability: Not on file FAMILY HISTORY: Family History Problem Relation Name Age of Onset Breast cancer Mother Lung cancer Father ALLERGIES: Allergies as of 03/06/2023 - Reviewed 03/06/2023 Allergen Reaction Noted Alendronate Unknown and Other 05/07/2010 Cephalexin Unknown 05/07/2010 Dye [gadolinium] 03/06/2023 Escitalopram Other and Unknown 10/24/2022 Iodine 03/06/2023 Nickel Unknown 05/07/2010 Penicillins Unknown 05/12/2010 Prednisone & diphenhydramine Unknown 03/06/2023 Pregabalin Unknown 05/07/2010 Salicylates Unknown and Other 05/07/2010 Iodinated contrast media Hives 06/14/2010 MEDICATIONS: Current Outpatient Medications Medication Sig Dispense Refill carbidopa-levodopa (Sinemet) 25-100 MG tablet every 8 hours. DULoxetine (Cymbalta) [address] capsule Take 1 capsule (20 mg) by mouth once daily. loratadine (Claritin) 10 MG tablet Take 10 mg by mouth daily. memantine (Namenda) 5 MG tablet Take 1 tablet by mouth daily. MULTIPLE VITAMIN PO Take 1 capsule by mouth in the morning. No current facility-administered medications for this encounter. SUMMARY OF SIGNIFICIANT X-RAY/LABORATORY FINDINGS: Radiology as per history. CBC on 02/05/2023 was within normal limits with a white count of 7, hemoglobin of 14.3 and platelet count of 243,000. CMP was within normal limits also including a GFR of 89. TSH was normal at 2.7 on the same date. REVIEW OF SYSTEMS: Review of Systems Constitutional: Positive for fatigue. Negative for appetite change, chills, diaphoresis, fever and unexpected weight change. HENT: Negative for hearing loss, sore throat and trouble swallowing. Eyes: Negative for eye problems. Has glasses. Respiratory: Negative. Cardiovascular: Negative. Gastrointestinal: Negative. Genitourinary: Negative. Musculoskeletal: Negative for arthralgias and back pain. No recent falls. Some shuffling due to the Parkinson's. Skin: Negative for itching and rash. Neurological: Fatigue since her stroke in 2009. She denies one-sided weakness. She notes a generalized weakness. She follows with neurology now for the Parkinson's. Hematological: Negative. Psychiatric/Behavioral: Positive for depression. The patient is nervous/anxious. The patient is on her medications. No history of connective tissue disease. No history of DVT or blood transfusion. No history of radiation or chemotherapy. KPS: 80 PHYSICAL EXAM: Accompanied by . BP (!) 140/90 Pulse 77 Temp 97.1 F (36.2 C) Resp 20 Ht 5' 5 (1.651 m) Wt 202 lb 4.8 oz (91.8 kg) SpO2 97% BMI 33.66 kg/m Pain Score: 0 - No pain GENERAL: Awake, alert, oriented, no anxiety, dressed appropriately, appears of stated age. Ambulates without assistance. Speech pattern fluent. HEAD AND NECK: Good tongue movement. No exudate or thrush. Nonicteric sclera. LUNGS: Clear to auscultation. No rales or rhonchi. HEART: Regular rate and rhythm, S1-S2 noted no murmur. NECK: Symmetric. No thyroid nodule. NODES: No neck, supraclavicular, infraclavicular, or axillary adenopathy. ABDOMEN: Soft, nontender, nondistended. No hepatosplenomegaly, no suspicious mass. BREAST: Left breast has postsurgery changes noted. Slightly smaller more uplifted. There is a faint scar in the upper inner region of the left breast where she had the prior lumpectomy. Healing curvilinear scar is located in the upper outer quadrant as well as a healing scar in the left axilla. Postsurgery changes in the region. No suspicious mass in either breast. No nipple discharge. MUSCULOSKELETAL: No swelling or calf tenderness bilaterally. Motor strength 5/5 in upper and lower extremities with sensation intact to light touch. No spine or posterior chest wall tenderness. No dullness to percussion. SKIN: Without excessive bruising. No open areas or rash. NEURO: PERRLA, EOMI. CN 2-12 grossly intact except full vision mosqueda were not tested. Able to hear light finger rub bilaterally. IMPRESSION: Madiha Perales is a 78 y.o. 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 She has undergone conservative surgery with negative nodes and negative margins. She is scheduled to see medical oncology in a couple weeks to discuss systemic therapy. She presents today to discuss postoperative radiation therapy. The discussion was taped for the patient's daughter to listen to at a later time. In terms of the radiation, we discussed what a course of treatment would entail including the set up, planning, length of therapy of typically 4 weeks with hypofractionated technique, possible side effects, both acute and long-term. Side effects during therapy include tiredness, skin reaction, skin breakdown, tenderness, swelling, low blood counts. Long-term risks include skin changes, more firmness of the breast tissue, shrinkage or swelling of the breast, uplifting of the breast, rib weakening, lung injury, heart injury, the inability control the disease and secondary malignancy. We discussed the importance of hydration, healthy nutrition, exercise including arm exercises both during therapy as well as long-term after. The patient was given a pamphlet on the arm exercises. She and her had opportunity to ask questions. They would like to pursue therapy. The timing will be dependent on medical oncology. If there is systemic drug therapy given then radiation would be to follow. If endocrine therapy only, the radiation planning can start in the next several weeks. Await their findings. PLAN: When the patient returns, the left breast area will be set up for hypofractionated technique for 4 weeks of therapy. Information on skin care and activity instructions for use during therapy will be given when she returns for planning. She understands the first planning session is at the [facility] and the rest of the appointments would be at the [facility]. We thank you for the consultation. Vicki Diego MD [facility] Department of Radiation Oncology is an Accredited Facility of the [employer] ([employer]). Total time: 65 minutes in chart review, lab/radiology evaluation/interpretation, patient exam, patient counseling and care coordination. This document was completed utilizing speech recognition software. Grammatical errors, random word insertions, pronoun errors, and incomplete sentences are an occasional consequence of this system due to software limitations, ambient noise, and hardware issues. Any formal questions or concerns about the content, text or information contained within the body of this dictation should be directly addressed to the provider for clarification. [facility] 03-06-2023 Consult note Formatting of th is note is different from the original. RADIATION ONCOLOGY INITIAL CONSULTATION PATIENT: Madiha Perales DATE OF SERVICE: 03/06/23 : 1945 AGE: 78 y.o. PRIMARY SITE AND HISTOPATHOLOGY: Left breast, grade 3 invasive ductal carcinoma, ER positive, WV positive, HER2 positive. STAGE: cT1b N0 M0, IA; pT1c N0 M0, IA HISTORY OF PRESENT ILLNESS: This is a 78-year-old female who was noted to have an abnormal screening mammogram of the upper outer quadrant of the left breast on 11/27/2022. The area was asymptomatic and nonpalpable. Diagnostic views and ultrasound were performed on 01/21/2023. This identified a 0.9 x 0.9 x 1 cm irregular mass in the left breast. Biopsy was performed at [facility] on 01/28/2023. This revealed grade 3 invasive ductal carcinoma measuring at least 8 mm in dimension. ER positive at 100%, WV positive at 70% and HER2 positive at 3+. The patient underwent lumpectomy and sentinel node removal on 02/18/2023. Pathology revealed grade 3 invasive ductal carcinoma measuring 1.9 cm. There was focal DCIS of high-grade. Extensive lymphovascular invasion. Margins were negative for invasive and in situ component at greater than 2 mm. 6 nodes were removed, 5 sentinel and 1 nonsentinel. All were negative. Pathologically staged T1CN0. We have been consulted to discuss postoperative radiation therapy. She is scheduled to see Dr. Escobedo on 03/18/2023 for systemic evaluation. She is accompanied by her today. The patient and her requested that our discussion be recorded for their daughter to hear. We attempted to have her on phone in real-time but she was unavailable. At this point she notes fatigue. She has had fatigue from her stroke years ago. Appetite stable. No unexplained weight loss. She has no pain. She feels that the area is healing well and she has good range of motion in the shoulder. PAST MEDICAL HISTORY: Past Medical History: Diagnosis Date Allergic rhinitis Anxiety Back pain Lower back pain Breast calcifications on mammogram Dementia (HCC) Depression Eczema H/O colonoscopy Hemorrhoid Hx of rosacea Lower extremity edema MARCY (obstructive sleep apnea) The patient wears CPAP Parkinson disease (HCC) Stroke (HCC) 2009 Torn meniscus Uterine cancer (CMS/HCC) (HCC) 2005 PAST SURGICAL HISTORY: Past Surgical History: Procedure Laterality Date BREAST LUMPECTOMY 02/18/2023 Left breast Lumpectomy and sentinel lymph node biopsy BREAST LUMPECTOMY Left 2013 Benign left breast lumpectomy CATARACT EXTRACTION, BILATERAL 2013 Bilateral cataract surgery HYSTERECTOMY 2006 Total Hysterectomy KNEE ARTHROSCOPY Right OB History Para Term AB Living 4 4 0 0 0 4 SAB IAB Ectopic Multiple Live Births 0 0 0 0 0 # Outcome Date GA Lbr David/2nd Weight Sex Delivery Anes PTL Lv 4 Para 3 Para 2 Para 1 Para SOCIAL HISTORY: Social History Socioeconomic History Marital status: Spouse name: Not on file Number of children: Not on file Years of education: Not on file Highest education level: Not on file Occupational History Not on file Tobacco Use Smoking status: Never Smokeless tobacco: Never Vaping Use Vaping Use: Never used Substance and Sexual Activity Alcohol use: Not Currently Drug use: Never Sexual activity: Not on file Other Topics Concern Not on file Social History Narrative Not on file Social Determinants of Health Financial Resource Strain: Not on file Food Insecurity: Not on file Transportation Needs: Not on file Physical Activity: Not on file Stress: Not on file Social Connections: Not on file Intimate Partner Violence: Not on file Housing Stability: Not on file FAMILY HISTORY: Family History Problem Relation Name Age of Onset Breast cancer Mother Lung cancer Father ALLERGIES: Allergies as of 03/06/2023 - Reviewed 03/06/2023 Allergen Reaction Noted Alendronate Unknown and Other 05/07/2010 Cephalexin Unknown 05/07/2010 Dye [gadolinium] 03/06/2023 Escitalopram Other and Unknown 10/24/2022 Iodine 03/06/2023 Nickel Unknown 05/07/2010 Penicillins Unknown 05/12/2010 Prednisone & diphenhydramine Unknown 03/06/2023 Pregabalin Unknown 05/07/2010 Salicylates Unknown and Other 05/07/2010 Iodinated contrast media Hives 06/14/2010 MEDICATIONS: Current Outpatient Medications Medication Sig Dispense Refill carbidopa-levodopa (Sinemet) 25-100 MG tablet every 8 hours. DULoxetine (Cymbalta) [address] capsule Take 1 capsule (20 mg) by mouth once daily. loratadine (Claritin) 10 MG tablet Take 10 mg by mouth daily. memantine (Namenda) 5 MG tablet Take 1 tablet by mouth daily. MULTIPLE VITAMIN PO Take 1 capsule by mouth in the morning. No current facility-administered medications for this encounter. SUMMARY OF SIGNIFICIANT X-RAY/LABORATORY FINDINGS: Radiology as per history. CBC on 02/05/2023 was within normal limits with a white count of 7, hemoglobin of 14.3 and platelet count of 243,000. CMP was within normal limits also including a GFR of 89. TSH was normal at 2.7 on the same date. REVIEW OF SYSTEMS: Review of Systems Constitutional: Positive for fatigue. Negative for appetite change, chills, diaphoresis, fever and unexpected weight change. HENT: Negative for hearing loss, sore throat and trouble swallowing. Eyes: Negative for eye problems. Has glasses. Respiratory: Negative. Cardiovascular: Negative. Gastrointestinal: Negative. Genitourinary: Negative. Musculoskeletal: Negative for arthralgias and back pain. No recent falls. Some shuffling due to the Parkinson's. Skin: Negative for itching and rash. Neurological: Fatigue since her stroke in 2009. She denies one-sided weakness. She notes a generalized weakness. She follows with neurology now for the Parkinson's. Hematological: Negative. Psychiatric/Behavioral: Positive for depression. The patient is nervous/anxious. The patient is on her medications. No history of connective tissue disease. No history of DVT or blood transfusion. No history of radiation or chemotherapy. KPS: 80 PHYSICAL EXAM: Accompanied by . BP (!) 140/90 Pulse 77 Temp 97.1 F (36.2 C) Resp 20 Ht 5' 5 (1.651 m) Wt 202 lb 4.8 oz (91.8 kg) SpO2 97% BMI 33.66 kg/m Pain Score: 0 - No pain GENERAL: Awake, alert, oriented, no anxiety, dressed appropriately, appears of stated age. Ambulates without assistance. Speech pattern fluent. HEAD AND NECK: Good tongue movement. No exudate or thrush. Nonicteric sclera. LUNGS: Clear to auscultation. No rales or rhonchi. HEART: Regular rate and rhythm, S1-S2 noted no murmur. NECK: Symmetric. No thyroid nodule. NODES: No neck, supraclavicular, infraclavicular, or axillary adenopathy. ABDOMEN: Soft, nontender, nondistended. No hepatosplenomegaly, no suspicious mass. BREAST: Left breast has postsurgery changes noted. Slightly smaller more uplifted. There is a faint scar in the upper inner region of the left breast where she had the prior lumpectomy. Healing curvilinear scar is located in the upper outer quadrant as well as a healing scar in the left axilla. Postsurgery changes in the region. No suspicious mass in either breast. No nipple discharge. MUSCULOSKELETAL: No swelling or calf tenderness bilaterally. Motor strength 5/5 in upper and lower extremities with sensation intact to light touch. No spine or posterior chest wall tenderness. No dullness to percussion. SKIN: Without excessive bruising. No open areas or rash. NEURO: PERRLA, EOMI. CN 2-12 grossly intact except full vision mosqueda were not tested. Able to hear light finger rub bilaterally. IMPRESSION: Madiha Perales is a 78 y.o. 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 She has undergone conservative surgery with negative nodes and negative margins. She is scheduled to see medical oncology in a couple weeks to discuss systemic therapy. She presents today to discuss postoperative radiation therapy. The discussion was taped for the patient's daughter to listen to at a later time. In terms of the radiation, we discussed what a course of treatment would entail including the set up, planning, length of therapy of typically 4 weeks with hypofractionated technique, possible side effects, both acute and long-term. Side effects during therapy include tiredness, skin reaction, skin breakdown, tenderness, swelling, low blood counts. Long-term risks include skin changes, more firmness of the breast tissue, shrinkage or swelling of the breast, uplifting of the breast, rib weakening, lung injury, heart injury, the inability control the disease and secondary malignancy. We discussed the importance of hydration, healthy nutrition, exercise including arm exercises both during therapy as well as long-term after. The patient was given a pamphlet on the arm exercises. She and her had opportunity to ask questions. They would like to pursue therapy. The timing will be dependent on medical oncology. If there is systemic drug therapy given then radiation would be to follow. If endocrine therapy only, the radiation planning can start in the next several weeks. Await their findings. PLAN: When the patient returns, the left breast area will be set up for hypofractionated technique for 4 weeks of therapy. Information on skin care and activity instructions for use during therapy will be given when she returns for planning. She understands the first planning session is at the [facility] and the rest of the appointments would be at the [facility]. We thank you for the consultation. Vicki Diego MD [facility] Department of Radiation Oncology is an Accredited Facility of the [employer] ([employer]). Total time: 65 minutes in chart review, lab/radiology evaluation/interpretation, patient exam, patient counseling and care coordination. This document was completed utilizing speech recognition software. Grammatical errors, random word insertions, pronoun errors, and incomplete sentences are an occasional consequence of this system due to software limitations, ambient noise, and hardware issues. Any formal questions or concerns about the content, text or information contained within the body of this dictation should be directly addressed to the provider for clarification. documented in this encounter [facility] 03-06-2023 Nurse Note The patient is here with her at [facility] for a new consult with Dr. Diego. The patient states she has a history of Uterine cancer and she had a total hysterectomy. The patient had a left breast lumpectomy with Dr. Choi on 02/18/23. She states she is healing well from surgery. The patient denies any previous history of chemotherapy or radiation therapy. The patient denies having a pacemaker or any other implanted devices. The patient states her appetite and sleeping are WNL. She reports a fatigue level of 7/10. The RN gave and reviewed an external radiation information packet and a patient resource guide. The patient verbalized understanding. [facility] 03-06-2023 Nurse Note The patient is here with her at [facility] for a new consult with Dr. Diego. The patient states she has a history of Uterine cancer and she had a total hysterectomy. The patient had a left breast lumpectomy with Dr. Choi on 02/18/23. She states she is healing well from surgery. The patient denies any previous history of chemotherapy or radiation therapy. The patient denies having a pacemaker or any other implanted devices. The patient states her appetite and sleeping are WNL. She reports a fatigue level of 7/10. The RN gave and reviewed an external radiation information packet and a patient resource guide. The patient verbalized understanding. documented in this encounter [facility] 02-27-2023 History of Present illness Narrative HPI: Citlaly presents in follow-up of her left breast lumpectomy with sentinel node. She is without complaint. EXAM: There were no vitals taken for this visit. Incisions are healing nicely. Resolving ecchymosis PATHOLOGY: pT Category pT1c pN Category pN0 ASSESSMENT: (C50.412, Z17.0) Malignant neoplasm of upper-outer quadrant of left breast in female, estrogen receptor positive (HCC) (primary encounter diagnosis) Returns in follow-up of her left breast lumpectomy and sentinel lymph node biopsy. Pathology was reviewed with the patient and her family. Of concern, her tumor is a high-grade and HER2 positive. She was also found to have extensive tumor within lymphovascular spaces. Citlaly certainly has dementia and limited insight as to what is happening. She will be referred to oncology and radiation oncology. For logistic reasons the family would like to be seen at [facility]. Referral has been sent. She can return to see me in 6 months to assess her progress. Office Visit on 02/27/23 CONSULT TO ONCOLOGY RAD/ONC CONSULT Torrie Choi MD documented in this encounter [facility] 02-26-2023 Miscellaneous Notes Patient daughter wesley called with questions Radiation doctors she was wondering if Demi Cortez, Dana bob or Kisha Mane were a good fit for her mom they are all [facility] doctors but was wondering what place they actually do the radiation treatment. She also mentioned that you suggested [facility] and [facility]. Then she had questions on what stage her mothers cancer is? Also she doesn't she pathology for the tumor??? Wesley [phone] documented in this encounter [facility] 02-12-2023 History of Present illness Narrative Subjective Patient ID: Madiha Perales is a 78 y.o. female who presents for Gait Problem and Results (Go over blood work she had done last week). HPI Citlaly was seen today for a short-term follow-up and review of her medication, particularly Sinemet, which was started for parkinsonian symptoms including shuffling gait, decreased left arm swing, bradykinesia. Citlaly has never had a significant nor obvious tremor. Since being on Sinemet at her present dose, she has not fallen. While being evaluated at [facility] preadmission testing for upcoming breast cancer surgery, it was noted that she had mild bilateral lower extremity edema. She states that at that time it was a little worse than normal, but that she lives with a trace amount on both sides, without pain, erythema, or warmth. He has no chest pain, dyspnea, paroxysmal nocturnal dyspnea, or orthopnea. I subsequently ordered labs for further evaluation, and her TSH, kidney, liver function were normal. Urinalysis and brain natruretic peptide were perfect as well. Does have bilateral varicosities Medication(s) are being taken and tolerated as prescribed, without concerns, list reconciled today. Review of Systems The full, 10+ multi-organ review of systems, is within normal limits with the exception of what is noted above in HPI. Objective BP 122/75 (BP Location: Right arm, Patient Position: Sitting, BP Cuff Size: Large adult) Pulse 71 Temp 36.3 C (97.4 F) (Temporal) Resp 16 Wt 93 kg (205 lb) PF 92 L/min BMI 34.11 kg/m Physical Exam Constitutional/General appearance: alert, oriented, well-appearing, in no distress Head and face exam is normal No scleral icterus or conjunctival erythema present Hearing is grossly normal Respiratory effort is normal, no dyspnea noted Cortical function is normal Mood, affect, are pleasant, appropriate, and interactive. Insight is normal Cardiac exam reveals a regular rate and rhythm, lungs are clear, trace bilateral lower extremity edema present. Gait is less shuffling than prior, get up and go/bradykinesia has improved. Facial expression/emotion evident. Assessment/Plan Bilateral lower extremity edema, work-up reassuring, no suspicion for DVT or sinister etiology. Thyroid, kidney, liver function normal. BNP normal as well. Leave a venous insufficiency component present, as she really thinks it is stable and unchanged at present. I recommend minimizing sodium, elevating the legs as able, wearing compression stockings as well. I have no concerns regarding her upcoming breast cancer surgery, no special precautions need taken. Continue Parkinson's, depression/anxiety medication No further testing needed from my standpoint Follow up as scheduled Portions of this medical record have been created using voice recognition software and may have minor errors which are inherent in voice recognition systems. It has not been fully edited for typographical or grammatical errors documented in this encounter [facility] Work Phone: 02-10-2023 History of Present illness Narrative I have reviewed the EMANUEL localization request for Dr. Choi. Left breast: 3:00 posterior depth, invasive ductal carcinoma, HydroMARK butterfly clip, EMANUEL localization. Images marked are dated 01/28/2023. This is a nonbillable encounter. documented in this encounter [facility] 02-06-2023 Miscellaneous Notes Spoke with patient and spouse and advised of information per PA. Advised Marcos and Citlaly that DR Devi should prescribe the compression stockings and address the problems with the lower extremity swelling. Patient also gave permission for office to speak with her daughter as needed. Spoke with Jessica in Dr Devi's office. Patient has appt scheduled with Dr Devi on 02/12/23. Yesterday, the patient did call their office Patient did not see Dr Devi yesterday. Labs were ordered- they are waiting urine and blood results. Asked Jessica to send office note for Dr Choi's review after office visit next week. Follow up with PCP Call taken by search marketing specialist today: Patient daughter called about some concerns PACC appt PA notice patients feet were swollen. Patient doesn't wear cpmpression socks. Should they attempt to get some before the surgery and can you place an order for these? Call Alicia or stevie [phone] or Christiano her [phone] Please see previous note from 02/05/23 Breast Lumpectomy scheduled with Dr Choi 02/18/23. Had advised patient to have evaluation with PCP. Would you agree? Spoke with Marcos , patients . Advised them to reach out to PCP DR Devi and have patient seen for the bilateral lower extremity including pedal edema. Marcos states she saw PCP a few weeks ago but this was not addressed at that time. Advised him to have DR Devi send a follow up note to Dr Choi's office after the visit. Breast Lumpectomy is scheduled with Dr Choi 02/18/23. Marcos verbalized understanding. Daughter calling about mom had PACC this morning. Said the PA asked her if her feet are always swollen. Daughter is concerned that if this is something to worry about prior to surgery with Dr Choi that is scheduled on 02/18. Please call at [phone] Thank You documented in this encounter [facility] 02-06-2023 Miscellaneous Notes Please see encounter from 02/05/23. This encounter closed. Patient daughter called about some concerns PACC appt PA notice patients feet were swollen. Patient doesn't wear cpmpression socks. Should they attempt to get some before the surgery and can you place an order for these? Call Alicia or stevie [phone] or Christiano her [phone] documented in this encounter [facility] 02-04-2023 History and physical note HISTORY AND PHYSICAL EXAMINATION SERVICE DATE: 02/05/2023 SERVICE TIME: 9:09 AM PRIMARY CARE PHYSICIAN: Marie Devi MD REASON FOR VISIT: Madiha Perales is a 78 year old female who is scheduled for Procedure(s): LUMPECTOMY BREAST (Left) BIOPSY NODE SENTINEL AXILLARY (Left) at the request of Dr. Torrie Choi for consultation. My final recommendation will be communicated back to the requesting physician by way of shared medical record or letter. Subjective The patient has the following: ACTIVE PROBLEM LIST Breast Calcifications On Mammogram Marcy On Cpap History of Uterine Cancer Stroke (Hcc) Anxiety and Depression Parkinsonism (Hcc) Malignant Neoplasm of Lower-Outer Quadrant of Left Breast of Female, Estrogen Receptor Positive (Hcc) Personal History of Penicillin Allergy COVID-19 Immunization Status Overdue - COVID-19 VACCINE (4 - Moderna series) Overdue since 08/01/2021 06/06/2021 Imm Admin: COVID-19 original vaccine, full dose, monovalent (MODERNA) 10/14/2020 Imm Admin: COVID-19 original vaccine, full dose, monovalent (MODERNA) 09/16/2020 Imm Admin: COVID-19 original vaccine, full dose, monovalent (MODERNA) CHIEF COMPLAINT: Pre-Op HPI: Madiha Perales is a 78 year old female presenting for pre-anesthesia consultation. Pt has history of Invasive ductal carcinoma of breast, female, left. Today feeling well. Denies pain. Above procedure recommended to manage symptoms. Procedure scheduled on 02/18/2023 at [facility]. REVIEW OF SYSTEMS: General: No weight loss, malaise or fevers. Neurological: Positive for: headaches (occ stress/tension FRY, prn tylenol), Parkinson's disease (Repeated falls, on carbidopa-levodopa) and strokes. Patient's stroke is with residual deficits. Negative for: multiple sclerosis and seizures. Respiratory: Negative for: asthma, COPD, current cough, dyspnea, tobacco use, URI < 2 weeks and obstructive sleep apnea. Cardiovascular: Negative for: AICD/PPM, anticoagulation therapy, arrhythmia, CAD, chest pain, DVT/PE, hyperlipidemia, hypertension, murmur/valvular heart disease, open heart surgery and valve surgery. GI: Negative for: abdominal pain, dysphagia, GERD, liver disease, nausea and vomiting. : Negative for: on dialysis, dysuria, hematuria and renal failure. Endocrine: Negative for: diabetes mellitus, hyperthyroidism and hypothyroidism. Hematology: Negative for: anemia, bruises/bleeds easily, factor V Leiden, hemophilia, thrombocytopenia, von Willebrand disease and chronic anti-coagulation/platelet meds. Oncology: See HPI. + uterine cancer, s/p hysterectomy, no radiation or chemo. Negative for: chemo within 30 days and radiotherapy within 90 days. Psych: Positive for: anxiety and depression. Negative for: bipolar disorder. Musculoskeletal: Negative for joint pain or swelling, back pain or muscle pain. Skin: Chronic skin issues comment: Rosacea - follows with derm, off of doxycycline now, it was ineffective PAST MEDICAL HISTORY Diagnosis Date Anemia Anxiety and depression 02/05/2023 Breast calcifications on mammogram 07/24/2013 Cancer (HCC) uterine MARCY on CPAP MARCY on CPAP 02/05/2023 PMH - PAST MEDICAL HISTORY OF 07/24/2005 Uterine cancer s/p hyst (no XRT/chemo needed) Stroke (HCC) 06/23/2009 PAST SURGICAL HISTORY Procedure Laterality Date BREAST BIOPSY 1977 left breast,benign COLONOSCOPY 2013 HYSTERECTOMY HX 07/29 total MAMMOTOME BIOPSY RIGHT 08/09/2013 PAST SURGICAL HISTORY OF right knee arthroscopy for torn meniscus, no hardware REMOVE CATARACT, INSERT LENS, INTRACAPSUL 2013 FAMILY HISTORY Problem Relation Age of Onset Breast Cancer Mother Cancer Mother Thyroid Mother other (htn [Other]) Mother other (hyperlipidemia [Other]) Mother other (hypothyroid [Other]) Mother Cancer Father other (lung cancer [Other]) Father other (liver cancer [Other]) Father other (healthy [Other]) Sister other (healthy [Other]) Brother Hypertension Maternal Grandmother Stroke Maternal Grandfather other (cva [Other]) Maternal Grandfather Cancer Paternal Grandmother other (brain cancer [Other]) Paternal Grandmother Colon Cancer Paternal Grandfather Anesthesia Problems No Family History Social History Tobacco Use Smoking status: Never Smokeless tobacco: Never Vaping Use Vaping Use: Never used Substance Use Topics Alcohol use: No Drug use: No Prior to Admission medications as of 02/05/23 0755 Medication Sig Last Dose Taking Multivitamin capsule Take 1 capsule by mouth once daily. Taking Yes loratadine (CLARITIN) 10 mg tablet Take 1 tablet by mouth every afternoon. Taking Yes DULoxetine (CYMBALTA) 20 mg capsule Take 1 capsule (20 mg) by mouth once daily. Taking Yes carbidopa-levodopa (SINEMET 25-100) 25-100 mg per tablet Take 1 tablet at 10 am, 3 pm, and 8 pm Taking Yes No medication comments found. ALLERGIES Allergen Reactions Alendronic Acid Unknown Asa [Salicylates] Unknown Cephalexin Unknown Lyrica [Pregabalin] Unknown Nickel Unknown Penicillins Unknown Contrast Dye Mri [O* Hives Hives x 5 locations, redness of right eye. Objective PHYSICAL EXAM: General: alert and oriented and healthy appearance. Pertinent negatives noted - not distressed. Skin: normal color, no rash or lesions. Positive for pigmentation changes (mild rosecea). HEENT: EOM intact, pupils equal round and pupils reactive to light. Pertinent negatives noted - no carotid bruit. Cardiovascular: regular rate and rhythm, normal S1 and S2, no rub, murmurs, or gallop. No radial pulse abnormalities. Respiratory: normal breath sounds, no wheezes or crackles. No chest wall deformity or tenderness. Abdomen: bowel sounds present and soft. Pertinent negatives noted - not tender. Extremities: no deformity, no edema or tenderness, no joint swelling or clubbing. Positive for edema (mild +1 pitting edema). Pertinent negatives noted - no cellulitis, no clubbing and no deformity. Neurological: normal cognition and motor skills. Gait normal. No weakness or sensory deficit. PAIN ASSESSMENT: VITALS: BP 126/69 Pulse 76 Temp (Src) 97.1 (Temporal) Resp 16 Ht 5' 5.5 (1.66m) Wt 206 lb (93.4kg) SpO2 97% BMI 33.75 kg/(m^2). Diagnostic tests reviewed for today's visit: Lab Value Units Date High Low HB 14.4 g/dL 09/02/2022 15.5 11.5 HCT 43.0 % 09/02/2022 46.0 36.0 WBC 5.86 k/uL 09/02/2022 11.00 3.70 PLT 207 k/uL 09/02/2022 400 150 NA 139 mmol/L 09/02/2022 144 136 K 4.6 mmol/L 09/02/2022 5.1 3.7 GLUC 90 mg/dL 09/02/2022 99 74 BUN 10 mg/dL 09/02/2022 21 7 CREAT 0.59 mg/dL 09/02/2022 0.96 0.58 PTSEC No results within date range. INR No results within date range. APTT No results within date range. ALT No results within date range. AST No results within date range. TBILI No results within date range. TSH No results within date range. Lab Value Units Date High Low HCGQT No results within date range. UHCG No results within date range. HCG, BODY* No results within date range. Lab Value Units Date High Low ABORHD No results within date range. ABSCREEN No results within date range. Hemoglobin A1C (%) Date Value 05/07/2010 6.0 No results found for this or any previous visit (from the past 8760 hour(s)). No results found for this or any previous visit (from the past 49796 hour(s)). Assessment Patient has the following medical conditions which may affect art-operative course: Stroke (HCC) Assessment: 2009, intracerebral hemorrhage of unclear etiology with evidence of some microhemorrhages. No recurrence. Some residual balance issues. Follows with neurology. Per Dr. Bolanos's note: MRI does not reveal anything to suggest a cause (no contrast enhancing lesion, no new hemorrhage). The usual risk factors of hypertension, age, alcohol do not appear to play a role here. She has low cholestrol, and hypocholesterolemia has been associated with bleeding tendencies. The microhemorrhages suggest an unexplained bleeding tendencies. Even if we say this is amyloid angiopathy, the rebleeding risk in the shelter is probably in the range of ~5% per year. MARCY on CPAP Assessment: Adherent to CPAP History of uterine cancer Assessment: 2005, s/p hysterectomy. No chemo or radiation needed. Anxiety and depression Assessment: Follows with PCP, adherent to RX. Parkinsonism (HCC) Assessment: Follows with PCP. No recent falls. Adherent to RX. Personal history of penicillin allergy Assessment: Unconfirmed, patient does not remember being diagnosed with this or having any PCN reaction. Consult placed for allergy, information provided to pt and family for them to make appointment for evaluation. [place] Activity Status Index: METS: Climb a flight of stairs or walk up a hill (5.50 METs) DASI Score: 5.5 Patient denies any chest pain or undue shortness of breath with the above physical activity. Clinical Frailty Scale: 3. Well, with treated comorbid disease STOP-Bang Score: STOP-Bang Score: (MARCY with CPAP - uses most nights) ASA Class: 3 ANESTHESIA FINDINGS: Intubation History: No history of difficult intubation. No abnormal airway history Significant Anesthesia Considerations: none Airway History: No history of difficult airway No abnormal airway history I - PHYSICAL EVALUATION AIRWAY Patient intubated: No. Tracheostomy tube not present Mallampati: IV. TM distance: >3 FB. Neck ROM: full ROM without neurological symptoms. Mouth opening: adequate. Short neck: no. Thick neck: no Lip Bite Test: I Microretrognathia/Micronagthia/Rec essed Chin: No DENTAL Additional comments: Has bite plate she wears at night, otherwise teeth intact.. II - ANESTHESIA PLAN ASA Score: 3 Anesthetic Plan: other Anesthetic plan additional comments: *PACC/TCI - anesthesia choice. Beta Kesha Monitoring Plan Post Procedure Analgesic Plan Prepared for Surgery: optimally prepared for surgery. CONSULTS: Patient does not require consults for optimization at this time Planned Anesthetic: other anesthesia choice The Following Tests/Procedures Have Been Initiated: Orders Placed This Encounter CONSULT TO [facility] Scheduling Instructions: Please call [phone] to set up an urgent consult. Multivitamin capsule Sig: Take 1 capsule by mouth once daily. Instructions Given to Patient: Instructions located in the after visit summary. Patient given verbal and written preop instructions and voices comprehension and compliance. SIGNATURE: Jolly Dooley PA-C PATIENT NAME: Madiha Perales DATE: February 05, 2023 TIME: 11:21 AM PAGER/CONTACT #: documented in this encounter [facility] 02-04-2023 Instructions Jolly Dooley PA-C - 02/04/2023 11:05 AM EDT Images from the original note were not included. PATIENT PREOPERATIVE INSTRUCTIONS Torrie Choi MD has scheduled you for your procedure at this surgery center: [facility]: [phone] -- [address] [facility] [address]. Please read below carefully for your personalized instructions. Dietary Restrictions: - No solid food after midnight. - You may have 12 ounces of clear liquids (water, clear juices such as apple juice or gatorade, carbonated beverages, clear tea, black coffee, jello) until 2 hours before scheduled arrival at facility. - Do not drink any alcohol after midnight the night before your surgery. Medications: Unless instructed differently below, stay on all of your medications until your surgery. Approved medications to take the morning of surgery with a sip of water: loratadine (CLARITIN), duloxetine (CYMBALTA), carbidopa-levodopa (SINEMET) If you start any new medications after today's visit, please contact the surgeon's office. Blood Thinning Medications: - Stop NSAIDS (Ibuprofen, Advil, Aleve, Motrin, Celebrex, Mobic, etc.) 7 days before surgery, as directed by your surgeon. - Stop Aspirin 7 days before surgery, as directed by your surgeon. - Stop Vitamin E, ALL multi-vitamins, herbals and dietary supplements 14 days before surgery. - You may take Tylenol (Acetaminophen) or any of your pain medications that do not contain aspirin or NSAIDS as needed. Important Reminders: - If you use CPAP/BIPAP, bring the machine with you to the surgery center. - Candy, mints, and tobacco products are NOT permitted the morning of surgery. - Hearing aids, dentures and glasses may be worn the morning of surgery. - NO jewelry, body piercings, makeup, hairpins or contacts are to be worn the day of surgery. If you develop symptoms such as a fever, cold, or flu, or have other changes to your health within TWO DAYS of scheduled surgery or the morning of surgery, please contact the surgery center above. Personal Belongings: -Please have photo ID and insurance cards. -If you do not have a copy of advance directives on file with us, please bring a copy with you on the day of surgery. - Leave ALL valuables and money at home or with family members. For Outpatient Procedures: - YOU MUST HAVE A RESPONSIBLE BUILDING SERVICES SUPERVISOR TAKE YOU HOME. A INTELLECTUAL PROPERTY PARALEGAL OR AUDIT ASSOCIATE CANNOT BE MADE A RESPONSIBLE BUILDING SERVICES SUPERVISOR. - We recommend that a responsible person stays with you overnight to take care of you. - You cannot stay in a hotel alone after outpatient surgery. You will not be permitted to have your surgery, if you do not have someone to take care of you. Arrival Time for Surgery: - The Surgery Center or hospital where you are having surgery will call the afternoon before surgery (or Friday for Friday surgery) with a scheduled arrival time. - If you have not heard by 4 pm, please contact the surgery center above. Please be aware that emergency situations arise, which may delay or change your surgical time. If this happens, we will notify you as soon as possible and regret any inconvenience. If you already have an Advance Directive, please fax a copy to [phone] or email to for it to be added to your chart. If you do not have an Advance Directive, you can find the appropriate form and more information at [email or web address]. We recommend that you complete the Advance Directive form found on the website and bring it with you the day of your surgery. It can be witnessed and scanned into your chart that day. Jolly Dooley PA-C documented in this encounter [facility] 02-03-2023 History of Present illness Narrative General Surgery New Patient H&P PATIENT NAME: Madiha Perales Assessment ASSESSMENT/PLAN: (C50.412, Z17.0) Malignant neoplasm of upper-outer quadrant of left breast in female, estrogen receptor positive (HCC) (primary encounter diagnosis) Citlaly presents with a new diagnosis of left breast cancer, ER/WV positive and Her-2 positive. We discussed proceeding with surgical management. Options given including mastectomy versus breast conservation. She would like to proceed with lumpectomy with sentinel lymph node biopsy. Risks including bleeding, infection, lymphedema, the need for more surgery, and recurrent tumor were explained to the patient and her family and she would like to proceed. She will be scheduled for EMANUEL Dog Handler Or Trainer placement. Surgery is scheduled for February 18. Office Visit on 02/03/23 NM INJ SENTINEL NODE BREAST LEFT LEE NDL LOC W LEE GD LEFT loratadine (CLARITIN) 10 mg tablet DULoxetine (CYMBALTA) 20 mg capsule carbidopa-levodopa (SINEMET 25-100) 25-100 mg per tablet doxycycline (VIBRAMYCIN) 50 mg capsule SUBJECTIVE CHIEF COMPLAINT: Patient presents with: Consult: Breast surgery; L INTERVAL HISTORY OF PRESENT ILLNESS: Citlaly is a 78-year-old female who presents with a new diagnosis of left breast cancer. She does not palpate a mass and denies nipple discharge. She has a history of a benign right breast biopsy in 2013. She had a hysterectomy for uterine cancer. She did go through menopause in her late 40s and was never on hormone replacement therapy. Family history significant for breast cancer in her mother. She underwent mammogram, ultrasound, and biopsy. She presents today to discuss surgical options. HISTORIES: PAST MEDICAL HISTORY Diagnosis Date Anemia Breast calcifications on mammogram 07/24/2013 Cancer (HCC) uterine PMH - PAST MEDICAL HISTORY OF 07/29 Uterine cancer s/p hyst (no XRT/chemo needed) Stroke (HCC) 2009 PAST SURGICAL HISTORY Procedure Laterality Date BREAST BIOPSY 1977 left breast,benign COLONOSCOPY 2012 HYSTERECTOMY HX 07/29 total MAMMOTOME BIOPSY RIGHT 08/09/2013 PAST SURGICAL HISTORY OF right knee arthroscopy for torn meniscus, no hardware REMOVE CATARACT, INSERT LENS, INTRACAPSUL 2012 ALLERGIES: Alendronic Acid, Asa [Salicylates], Cephalexin, Lyrica [Pregabalin], Nickel, Penicillins, and Contrast Dye Mri [Other] MEDICATIONS: Current Outpatient Medications Medication Sig loratadine (CLARITIN) 10 mg tablet Take 1 tablet by mouth every afternoon. DULoxetine (CYMBALTA) 20 mg capsule Take 1 capsule (20 mg) by mouth once daily. carbidopa-levodopa (SINEMET 25-100) 25-100 mg per tablet Take 1 tablet at 10 am, 3 pm, and 8 pm doxycycline (VIBRAMYCIN) 50 mg capsule Take 1 capsule (50 mg) by mouth once daily. No current facility-administered medications for this visit. FAMILY HISTORY Problem Relation Age of Onset Breast Cancer Mother Cancer Mother Thyroid Mother Hypertension Maternal Grandmother Cancer Father Stroke Maternal Grandfather Colon Cancer Paternal Grandfather Cancer Paternal Grandmother other (cva [Other]) Maternal Grandfather other (healthy [Other]) Sister other (healthy [Other]) Brother other (lung cancer [Other]) Father other (liver cancer [Other]) Father other (htn [Other]) Mother other (hyperlipidemia [Other]) Mother other (hypothyroid [Other]) Mother other (brain cancer [Other]) Paternal Grandmother Social History Tobacco Use Smoking status: Never Smokeless tobacco: Never Vaping Use Vaping Use: Never used Substance Use Topics Alcohol use: No Drug use: No OBJECTIVE PHYSICAL EXAM: BP 128/83 Pulse 74 Ht 5' 5 (1.65m) Wt 203 lb (92.1kg) BMI 33.78 kg/(m^2). General: Well developed, well-nourished, female in no distress HEENT: Normocephalic, atraumatic. Extraocular movements intact. Sclera are nonicteric. Breasts: No dominant masses, no discharge, no skin or nipple change, no palpable axillary adenopathy bilaterally Heart: Regular rate and rhythm, no murmur Lungs: Clear to auscultation without wheezes Extremities: No edema Neurologic: Alert, oriented, and appropriate. Neurologic exam is symmetric and nonfocal. DATA: Diagnostic tests reviewed for today's visit: US/Path: FINAL DIAGNOSIS A. Breast, left, at 3:00, 9 cm from the nipple, mass, Butterfly clip, ultrasound-guided core biopsy: ---Invasive ductal carcinoma, preliminary Magui grade 3 (of 3), measuring at least 8 mm in greatest dimension. Breast Biomarkers RESULTS: Estrogen Receptor (ER) Positive 100 % Stain intensity: strong Internal controls: present and stained as expected External controls: appropriately stained Progesterone Receptor (WV) Positive 70 % Stain intensity: strong Internal controls: present and stained as expected External controls: appropriately stained HER2 (ERBB2) IMMUNOHISTOCHEMISTRY ASSAY Interpretation: POSITIVE for HER2 (ERBB2) Expression Score: 3+ Torrie Choi MD documented in this encounter [facility] 02-03-2023 Procedure note Anticipated Surgical Procedure/ CPT Code: left LUMPECTOMY WITH SENTINEL LYMPH NODE BIOPSY - 28062-971, [id number], [id number], with EMANUEL Anticipated Anesthetic: General Patient weight: There were no vitals taken for this visit. BMI: There is no height or weight on file to calculate BMI. Planned antibiotic: SCDs needed: Yes Aircraft Ordnance Systems Mechanic Needed: Yes Pre Op Clearance: PAT Anticoagulation: No Diabetic: No Location: [facility] OR Dx - left breast cancer documented in this encounter [facility] 01-29-2023 Miscellaneous Notes Called patient to notify the breast pathology results did show malignancy per Dr. Rausch. [facility] office staff will assist patient with a surgical consult appt with Dr. Choi/ Dr. Moore. Patient verbalized understanding. documented in this encounter [facility] 01-28-2023 Miscellaneous Notes Patient provided At Home Instructions pamphlet and Dr. Rausch spoke with her and her about after care and results. documented in this encounter [facility] 01-23-2023 History of Present illness Narrative No concerns to address Subjective Patient ID: Madiha Perales is a 77 y.o. female who presents for Depression. HPI Citlaly was seen today for a routine follow-up of her depression, normal gait, parkinsonism features. At her last visit, we prescribed Sinemet, 25/100, she has not fallen since her last visit. She has not taken it today. She is scheduled for a breast biopsy on Friday, as a suspicious lump noted mammogram, diagnostic mammogram and breast ultrasound. She otherwise feels well, takes duloxetine as prescribed, mood, irritability, mood swings are fairly well-managed, have been for quite some time. Labs were last checked in June, all reassuring. We typically do her labs annually. Review of Systems The full, 10+ multi-organ review of systems, is within normal limits with the exception of what is noted above in HPI. Objective BP 115/73 (BP Location: Right arm, Patient Position: Sitting, BP Cuff Size: Large adult) Pulse 68 Temp 36.1 C (96.9 F) (Temporal) Resp 16 Wt 93.7 kg (206 lb 9.6 oz) SpO2 97% BMI 34.38 kg/m Physical Exam Cardiac exam reveals a regular rate and rhythm, no murmurs, rubs or gallops present. Lungs are clear bilaterally. No lower extremity edema present. Constitutional/General appearance: alert, oriented, well-appearing, in no distress Head and face exam is normal No scleral icterus or conjunctival erythema present Hearing is grossly normal Respiratory effort is normal, no dyspnea noted Cortical function is normal Mood, affect, are pleasant, appropriate, and interactive. Insight is normal Neurologic exam reveals a shuffling gait, decreased arm swing. Get up and go was well-preserved. Finger to nose test normal. When she stands, facing away from knee, when I pull on her shoulders, she does not catch herself, would have fallen. No tapping is fairly rapid, but irregular. Assessment/Plan Depression-----currently, symptoms are stable, both physical and emotional. We will continue the current regimen of medication, as noted above. Refills were provided, as needed. Behavioral measures are to be continued, including a healthy diet, regular exercise, good sleep hygiene, minimal caffeine, and avoidance of alcohol. Follow up should be in 6 months, or sooner if needed Labs are all up-to-date Biopsy pending, will follow along with pathology. Parkinson's features, seems improved with Sinemet, increased to 3 times daily. Of asked her to come back in about 2 weeks at the end of the day, so I can watch her walk, since she does not have it in her system today. Follow-up in 6 months documented in this encounter [facility] Work Phone: 01-21-2023 History of Present illness Narrative Radiology Service Progress Note PATIENT NAME: Madiha Perales DATE OF SERVICE: January 21, 2023 TIME: 8:23 AM PATIENT IDENTITY VERIFICATION COMPLETED USING TWO (2) IDENTIFIERS: Name and Date of confirmed by patient verbally and Name and Date of confirmed by identification band. FALL SCREENING: Has the patient had 2 falls in the last year or 1 fall with injury or currently using an Ambulatory Assistive Device (Walker, Cane, Wheelchair, Crutches, etc.)? No PATIENT GENDER DATA: Female. status: : No status: NO. PATIENT RELEVANT IMPLANT DATA REVIEWED: Not Applicable RADIOLOGY DEPARTMENT: Ultrasound PERIPHERAL IV DATA: Not applicable SIGNED BY: RICHARD Ortega January 21, 2023 8:23 AM documented in this encounter [facility] 11-27-2022 History of Present illness Narrative Radiology Service Progress Note PATIENT NAME: Madiha Perales DATE OF SERVICE: November 27, 2022 TIME: 3:56 PM PATIENT IDENTITY VERIFICATION COMPLETED USING TWO (2) IDENTIFIERS: Name and Date of confirmed by patient verbally. FALL SCREENING: Has the patient had 2 falls in the last year or 1 fall with injury or currently using an Ambulatory Assistive Device (Walker, Cane, Wheelchair, Crutches, etc.)? No PATIENT GENDER DATA: Female. status: : No status: NO. PATIENT RELEVANT IMPLANT DATA REVIEWED: Yes RADIOLOGY DEPARTMENT: Mammography PERIPHERAL IV DATA: Not applicable SIGNED BY: RT Parish(Alanna) November 27, 2022 3:56 PM documented in this encounter [facility] [facility] 10-30-2022 History of Present illness Narrative Associated Order(s): Shaving Epidermal/Dermal Post-Procedure Diagnose(s): Seborrheic keratosis; Pigmented skin lesion suspicious for malignant neoplasm Subjective Patient ID: Madiha Perales is a 77 y.o. female who presents for MSO. HPI Patient ID: Madiha Perales is a 77 y.o. female. Shaving Epidermal/Dermal Date/Time: 10/30/2022 10:43 AM Performed by: Dara Sorensen DO Authorized by: Dara Sorensen DO Comments: Written consent was obtained from the patient. Risks, benefits and potential adverse effects were discussed with the patient, including but not limited to: infection, bleeding, pain, need for additional procedure. The patient was cleaned with alcohol and then topical anesthesia placed with 1cc 2% lidocaine no epi at each of the 3 sites (mid upper back, left back and mid middle back) The patient was cleaned again with povodine and alcohol. Shave biopsies were performed and tolerated well with minimal blood loss. Upper mid back lesion was sent off for pathology. The biopsy sites were dressed with topical triple antibiotic and band aids. The patient was given instructions for aftercare. Review of Systems See HPI Objective BP 100/66 (BP Location: Left arm, Patient Position: Sitting, BP Cuff Size: Large adult) Pulse 73 Temp 36.6 C (97.9 F) (Temporal) Resp 14 Wt 89.4 kg (197 lb) SpO2 97% BMI 32.78 kg/m Physical Exam Constitutional: Well developed, well nourished, alert and in no acute distress Eyes: Normal external exam. Cardiovascular: No peripheral edema. Pulmonary: No respiratory distress Skin: Warm, well perfused, normal skin turgor, +irritated/inflammed SK on upper mid back measuring 1cm x 1 cm. 2 more noninflammed Sks noted at mid back, both measuring 0.5cm x 0.5cm each. Neurologic: Cranial nerves II-XII grossly intact. Psychiatric: Mood calm and affect normal. Assessment/Plan Procedure was tolerate well Please keep your dressings in place for the rest of the day. You may resume bathing/showering tomorrow, 10/31 Please contact us with signs or concerns of infection: redness, warmth, streaking, purulent discharge, pain. We will contact you with the pathology of the skin lesion. documented in this encounter [facility] Work Phone: 10-24-2022 History of Present illness Narrative Subjective Patient ID: Madiha Perales is a 77 y.o. female who presents for mole (Back ). HPI Present x Jun 2022 +itching Not painful Does not bleed Located on right upper back No h/o skin cancers Has not tried a home remedy Unsure if the lesion is changing or enlarging Review of Systems See HPI Objective BP 126/72 (BP Location: Right arm, Patient Position: Sitting, BP Cuff Size: Large adult) Pulse 85 Temp 36.7 C (98 F) (Temporal) Resp 16 Wt 89.7 kg (197 lb 12.8 oz) SpO2 98% BMI 32.92 kg/m Physical Exam Constitutional: Well developed, well nourished, alert and in no acute distress Eyes: Normal external exam. Cardiovascular: No peripheral edema. Pulmonary: No respiratory distress Skin: Warm, well perfused, normal skin turgor, +irritated SK on upper mid/right back with excoriations, 2 more noninflammed Sks noted at mid back. Neurologic: Cranial nerves II-XII grossly intact. Psychiatric: Mood calm and affect normal. Assessment/Plan Schedule back for a shave biopsy of SK on right/mid back Total of 3 Sks on back 40 minute appointment documented in this encounter [facility] Work Phone: 09-21-2021 Miscellaneous Notes September 21, 2021 PID: [id number] Madiha Perales [address] [place] [address] Dear Ms. Perales, We are pleased to inform you that the results of your recent breast imaging exam on 09/21/2021 are normal. Early detection of cancer is very important. We also understand recommendations regarding breast cancer screening are controversial. Please discuss with your primary care provider which strategy is best for you and whether a mammogram is right for you. Your imaging studies and report will be kept on file at [facility] as part of your permanent medical record and are available for your continuing care. Thank you for allowing us to help in meeting your health care needs. Sincerely, Dr. Herring Interpreting Radiologist [facility] (Normal over 40) documented in this encounter [facility] 09-21-2021 History of Present illness Narrative Radiology Service Progress Note PATIENT NAME: Madiha Perales DATE OF SERVICE: September 21, 2021 TIME: 8:29 AM PATIENT IDENTITY VERIFICATION COMPLETED USING TWO (2) IDENTIFIERS: Name and Date of confirmed by patient verbally. FALL SCREENING: Has the patient had 2 falls in the last year or 1 fall with injury or currently using an Ambulatory Assistive Device (Walker, Cane, Wheelchair, Crutches, etc.)? No PATIENT GENDER DATA: Female. status: : No status: NO. PATIENT RELEVANT IMPLANT DATA REVIEWED: Not Applicable RADIOLOGY DEPARTMENT: Mammography PERIPHERAL IV DATA: Not applicable SIGNED BY: RICHARD Wood September 21, 2021 8:29 AM documented in this encounter [facility] 07-13-2020 History of Present illness Narrative Madiha was seen today for a routine follow-up of her Cymbalta, rosacea, allergies. Medication(s) are being taken and tolerated as prescribed, without concerns, list reconciled today.She overall feels well, denies any new concerns today. The [employer] seems to work so long as she uses it regularly.She is Covid vaccinated. Labs from 6 months ago were reviewed, were reassuring.She plans on getting a flu vaccine this fall.Medicare visit was done at last appointment. [facility] Work Phone: Evaluation note Diagnosis Seborrheic keratosis- Primary documented in this encounter [facility] Work Phone: Evaluation note* Diagnosis Seborrheic keratosis- Primary Pigmented skin lesion suspicious for malignant neoplasm documented in this encounter [facility] Work Phone: Evaluation note* Diagnosis Abnormal finding on radiological examination of breast- Primary Other (abnormal) findings on radiological examination of breast [facility] Diagnosis Abnormal finding on radiological examination of breast- Primary Other (abnormal) findings on radiological examination of breast [facility] Diagnosis Abnormal finding on radiological examination of breast Other (abnormal) findings on radiological examination of breast [facility] Diagnosis Parkinsonism, unspecified Parkinsonism type (CMS/HCC)- Primary Depression with anxiety Dysthymic disorder Repeated falls 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CMS/HCC) documented in this encounter [facility] Work Phone: Evaluation note* Diagnosis Abnormal finding on radiological examination of breast Other (abnormal) findings on radiological examination of breast [facility] Diagnosis Malignant neoplasm of upper-outer quadrant of left breast in female, estrogen receptor positive (HCC)- Primary Malignant neoplasm of upper-outer quadrant of left breast in female, estrogen receptor positive (HCC) [facility] Diagnosis Malignant neoplasm of upper-outer quadrant of left breast in female, estrogen receptor positive (HCC)- Primary Malignant neoplasm of upper-outer quadrant of left breast in female, estrogen receptor positive (HCC) [facility] Diagnosis Pre-op evaluation- Primary Preoperative examination, unspecified Past history of allergy to penicillin-type antibiotic Personal history of allergy to penicillin MARCY on CPAP Obstructive sleep apnea (adult) (pediatric) History of uterine cancer Personal history of malignant neoplasm of other parts of uterus Cerebrovascular accident (CVA), unspecified mechanism (HCC) Anxiety and depression Dysthymic disorder Parkinsonism, unspecified Parkinsonism type (HCC) Personal history of penicillin allergy Personal history of allergy to penicillin Malignant neoplasm of upper-outer quadrant of left breast in female, estrogen receptor positive (HCC) [facility] Diagnosis Malignant neoplasm of upper-outer quadrant of left breast in female, estrogen receptor positive (HCC) Malignant neoplasm of upper-outer quadrant of left breast in female, estrogen receptor positive (HCC) [facility] Diagnosis Depression with anxiety- Primary Dysthymic disorder Repeated falls Parkinsonism, unspecified Parkinsonism type (CMS/HCC) Bilateral lower extremity edema documented in this encounter [facility] Work Phone: Evaluation note* Diagnosis Malignant neoplasm of upper-outer quadrant of left breast in female, estrogen receptor positive (HCC)- Primary [facility] Diagnosis Malignant neoplasm of upper-outer quadrant of left breast in female, estrogen receptor positive (HCC)- [facility] Diagnosis Malignant neoplasm of upper-outer quadrant of left breast in female, estrogen receptor positive (HCC)- Primary Other general symptoms and signs [facility] Diagnosis Malignant neoplasm of upper-outer quadrant of left breast in female, estrogen receptor positive (HCC) documented in this encounter [facility] note* Diagnosis Malignant neoplasm of upper-outer quadrant of left breast in female, estrogen receptor positive (HCC)- Primary [facility] Diagnosis Malignant neoplasm of upper-outer quadrant of left breast in female, estrogen receptor positive (HCC) Other general symptoms and signs documented in this encounter [facility] note* Diagnosis Malignant neoplasm of upper-outer quadrant of left breast in female, estrogen receptor positive (HCC)- Primary documented in this encounter [facility] note* Diagnosis Malignant neoplasm of upper-outer quadrant of left breast in female, estrogen receptor positive (HCC) documented in this encounter [facility] note* Diagnosis Malignant neoplasm of upper-outer quadrant of left breast in female, estrogen receptor positive (HCC)- Primary documented in this encounter [facility] note* Diagnosis Malignant neoplasm of upper-outer quadrant of left breast in female, estrogen receptor positive (HCC)- Primary documented in this encounter [facility] note* Diagnosis Malignant neoplasm of upper-outer quadrant of left breast in female, estrogen receptor positive (HCC) documented in this encounter [facility] note* Diagnosis Malignant neoplasm of upper-outer quadrant of left breast in female, estrogen receptor positive (HCC)- Primary [facility] Diagnosis Malignant neoplasm of upper-outer quadrant of left breast in female, estrogen receptor positive (HCC)- Primary [facility] Diagnosis Malignant neoplasm of upper-outer quadrant of left breast in female, estrogen receptor positive (HCC) [facility] Diagnosis Malignant neoplasm of upper-outer quadrant of left breast in female, estrogen receptor positive (HCC) [facility] Diagnosis Malignant neoplasm of upper-outer quadrant of left breast in female, estrogen receptor positive (HCC)- Primary [facility] Diagnosis Malignant neoplasm of upper-outer quadrant of left breast in female, estrogen receptor positive (HCC) [facility] Diagnosis Malignant neoplasm of upper-outer quadrant of left breast in female, estrogen receptor positive (HCC)- Primary [facility] Diagnosis Encounter for monitoring cardiotoxic drug therapy [facility] Diagnosis Malignant neoplasm of upper-outer quadrant of left breast in female, estrogen receptor positive (HCC)- Primary [facility] Diagnosis Malignant neoplasm of upper-outer quadrant of left breast in female, estrogen receptor positive (HCC) [facility] Diagnosis Malignant neoplasm of upper-outer quadrant of left breast in female, estrogen receptor positive (HCC) Localized edema Edema [facility] Diagnosis Malignant neoplasm of upper-outer quadrant of left breast in female, estrogen receptor positive (HCC)- Primary Encounter for monitoring cardiotoxic drug therapy [facility] Diagnosis Malignant neoplasm of upper-outer quadrant of left breast in female, estrogen receptor positive (HCC) Localized edema Edema [facility] Diagnosis Malignant neoplasm of upper-outer quadrant of left breast in female, estrogen receptor positive (HCC) Falling Unspecified fall Hypotension, unspecified hypotension type [facility]* Diagnosis Malignant neoplasm of upper-outer quadrant of left breast in female, estrogen receptor positive (HCC) [facility] Diagnosis Malignant neoplasm of upper-outer quadrant of left breast in female, estrogen receptor positive (HCC)- Primary [facility] Diagnosis Malignant neoplasm of upper-outer quadrant of left breast in female, estrogen receptor positive (HCC) [facility] Diagnosis Malignant neoplasm of upper-outer quadrant of left breast in female, estrogen receptor positive (HCC)- Primary [facility]* Diagnosis Malignant neoplasm of upper-outer quadrant of left breast in female, estrogen receptor positive (HCC) [facility] Diagnosis Encounter for monitoring cardiotoxic drug therapy [facility]* Diagnosis Parkinsonism, unspecified Parkinsonism type- Primary Toxic effect of chemotherapy Dehydration Malignant neoplasm of right female breast, unspecified estrogen receptor status, unspecified site of breast (CMS/HCC) documented in this encounter [facility] Work Phone: Evaluation note* Diagnosis Malignant neoplasm of upper-outer quadrant of left female breast, unspecified estrogen receptor status (HCC) documented in this encounter [facility] [facility]* Diagnosis Malignant neoplasm of upper-outer quadrant of left breast in female, estrogen receptor positive (HCC) (HCC)- Primary documented in this encounter [facility] [facility]* Diagnosis Malignant neoplasm of upper-outer quadrant of left breast in female, estrogen receptor positive (HCC) (HCC) documented in this encounter [facility] [employer] note* Diagnosis Malignant neoplasm of upper-outer quadrant of left breast in female, estrogen receptor positive (HCC) (HCC)- Primary documented in this encounter [facility] [employer]* Diagnosis Malignant neoplasm of upper-outer quadrant of left breast in female, estrogen receptor positive (HCC) (HCC)- Primary documented in this encounter [facility] [employer] note* Diagnosis Admission for therapeutic drug monitoring Encounter for therapeutic drug monitoring Encounter for monitoring cardiotoxic drug therapy documented in this encounter [facility] [employer] [facility]* Diagnosis Parkinsonism, unspecified Parkinsonism type- Primary Malignant neoplasm of right female breast, unspecified estrogen receptor status, unspecified site of breast (CMS/HCC) 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CMS/HCC) Medicare annual wellness visit, subsequent Bilateral lower extremity edema documented in this encounter [facility] Work Phone: Evaluation note* Diagnosis Thyroid nodule Nontoxic uninodular goiter documented in this encounter [facility] Work Phone: Evaluation note* Diagnosis Nontoxic single thyroid nodule Nontoxic uninodular goiter documented in this encounter [facility] Work Phone: Evaluation note* Diagnosis Malignant neoplasm of upper-outer quadrant of left breast in female, estrogen receptor positive (HCC) (HCC) documented in this encounter [facility] [employer] [facility]* Diagnosis Malignant neoplasm of upper-outer quadrant of left breast in female, estrogen receptor positive (HCC) (HCC) [facility] Diagnosis Malignant neoplasm of upper-outer quadrant of left breast in female, estrogen receptor positive (HCC) (HCC)- Primary [facility] Diagnosis Malignant neoplasm of upper-outer quadrant of left breast in female, estrogen receptor positive (HCC) (HCC)- Primary Encounter for monitoring cardiotoxic drug therapy Asymptomatic menopausal state Encounter for monitoring anastrozole therapy [facility] Diagnosis Malignant neoplasm of upper-outer quadrant of left breast in female, estrogen receptor positive (HCC) (HCC) [facility] Diagnosis Malignant neoplasm of upper-outer quadrant of left breast in female, estrogen receptor positive (HCC) (HCC)- Primary [facility] Diagnosis Malignant neoplasm of upper-outer quadrant of left breast in female, estrogen receptor positive (HCC) (HCC) Asymptomatic menopausal state Encounter for monitoring anastrozole therapy [facility] Diagnosis Malignant neoplasm of upper-outer quadrant of left breast in female, estrogen receptor positive (HCC)- Primary [facility] Diagnosis Admission for therapeutic drug monitoring Encounter for therapeutic drug monitoring Encounter for monitoring cardiotoxic drug therapy [facility] Diagnosis Malignant neoplasm of upper-outer quadrant of left breast in female, estrogen receptor positive (HCC) [facility] Diagnosis Malignant neoplasm of upper-outer quadrant of left breast in female, estrogen receptor positive (HCC) [facility] Diagnosis Malignant neoplasm of upper-outer quadrant of left breast in female, estrogen receptor positive (HCC)- Primary [facility]* Diagnosis Malignant neoplasm of upper-outer quadrant of left breast in female, estrogen receptor positive (HCC)- Primary [facility]* Diagnosis Malignant neoplasm of upper-outer quadrant of left breast in female, estrogen receptor positive (HCC)- Primary [facility]* Diagnosis 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 Parkinsonism, unspecified Parkinsonism type (Multi) Depression with anxiety Dysthymic disorder Pneumonia due to COVID-19 virus Malignant neoplasm of right female breast, unspecified estrogen receptor status, unspecified site of breast (Multi) documented in this encounter [facility] Work Phone: Evaluation note* Diagnosis Malignant neoplasm of upper-outer quadrant of left breast in female, estrogen receptor positive (HCC) documented in this encounter [facility] note* Diagnosis Malignant neoplasm of upper-outer quadrant of left breast in female, estrogen receptor positive (HCC)- Primary documented in this encounter [facility] note* Diagnosis Malignant neoplasm of upper-outer quadrant of left breast in female, estrogen receptor positive (HCC) documented in this encounter [facility] note* Diagnosis Visit for screening mammogram- Primary Other screening mammogram Malignant neoplasm of upper-outer quadrant of left breast in female, estrogen receptor positive (HCC) documented in this encounter [facility] note* Diagnosis Pre-op evaluation- Primary Preoperative examination, unspecified Past history of allergy to penicillin-type antibiotic Personal history of allergy to penicillin MARCY on CPAP Obstructive sleep apnea (adult) (pediatric) History of uterine cancer Personal history of malignant neoplasm of other parts of uterus Cerebrovascular accident (CVA), unspecified mechanism (HCC) Anxiety and depression Dysthymic disorder Parkinsonism, unspecified Parkinsonism type (HCC) Personal history of penicillin allergy Personal history of allergy to penicillin Malignant neoplasm of upper-outer quadrant of left breast in female, estrogen receptor positive (HCC)- Primary documented in this encounter [facility] note* Diagnosis Malignant neoplasm of upper-outer quadrant of left breast in female, estrogen receptor positive (HCC)- Primary documented in this encounter [facility] note* Diagnosis Pre-op evaluation- Primary Preoperative examination, unspecified Past history of allergy to penicillin-type antibiotic Personal history of allergy to penicillin MARCY on CPAP Obstructive sleep apnea (adult) (pediatric) History of uterine cancer Personal history of malignant neoplasm of other parts of uterus Cerebrovascular accident (CVA), unspecified mechanism (HCC) Anxiety and depression Dysthymic disorder Parkinsonism, unspecified Parkinsonism type (HCC) Personal history of penicillin allergy Personal history of allergy to penicillin Visit for screening mammogram Other screening mammogram Malignant neoplasm of upper-outer quadrant of left breast in female, estrogen receptor positive (HCC) documented in this encounter [facility] note* Diagnosis Malignant neoplasm of upper-outer quadrant of left breast in female, estrogen receptor positive (HCC) [facility] Diagnosis Malignant neoplasm of upper-outer quadrant of left breast in female, estrogen receptor positive (HCC) [facility] Diagnosis Parkinsonism, unspecified Parkinsonism type (Multi)- Primary Malignant neoplasm of right female breast, unspecified estrogen receptor status, unspecified site of breast (Multi) Depression with anxiety Dysthymic disorder Elevated TSH Other abnormal blood chemistry Obesity (BMI 30.0-34.9) Other specified depressive episodes documented in this encounter [facility] Work Phone: Evaluation note* Diagnosis Malignant neoplasm of upper-outer quadrant of left breast in female, estrogen receptor positive (HCC) documented [facility]* Diagnosis Malignant neoplasm of upper-outer quadrant of left breast in female, estrogen receptor positive (HCC) documented in this [facility]* Diagnosis Malignant neoplasm of upper-outer quadrant of left breast in female, estrogen receptor positive (HCC)- Primary [facility]* Diagnosis Medicare annual wellness visit, subsequent- Primary Depression with anxiety Dysthymic disorder Elevated TSH Other abnormal blood chemistry Parkinson's disease without dyskinesia or fluctuating manifestations Vitamin D deficiency Do not resuscitate documented in this encounter [facility] Work Phone: History of Present illness Narrative* Mrs. Perales was seen today for a 6-month follow-up of her depression, anxiety, rosacea. * Medication(s) are being taken and tolerated as prescribed, without concerns, list reconciled today. * She feels well overall, though still notes occasional falls, perhaps a couple of times per month. These occur often when she is walking outside, on an uneven surface. She has had no injuries. * She does have an appointment with neurology soon, Dr. Reis, for these recurrent falls. * She has no chest pain, shortness of breath, palpitations, nor lower extremity edema. * Labs were last checked in June, all reassuring. [facility] Work Phone: History of Present illness Narrative* The patient is being seen for the subsequent annual wellness visit. * Past Medical, Surgical and Family History: reviewed and updated in chart. * Interval History: Patient has not been hospitalized previously. * Medications and Supplements: Review of all medications by a prescribing practitioner or clinical pharmacist (such as prescriptions, OTCs, herbal therapies and supplements) documented in the medical record. * No, the patient is not using opioids. * Patient Self Assessment of Health Status: good. * Tobacco use: Non-User * Alcohol use: Non-User * Illicit drug use: Non-User * Current diet: well balanced diet, does consume adequate fluids and does consume caffeine. * Exercise Frequency: the patient does not exercise. * Depression/Suicide Screening: Patient has a current diagnosis of depression . * During the past 2 weeks, the patient has not felt down, depressed or hopeless. * During the past 2 weeks, the patient felt little interest or pleasure in doing things. * Occasional depressed symptoms, irritability, though she is comfortable with her present regimen, wishes for no change. * Hearing Impairment: Patient has slight hearing impairment, bilaterally. * Cognitive Impairment: No cognitive impairment observed. * Bathing: performs independently. * Dressing: performs independently. * Walking: performs independently. * Managing Finances: performs independently. * Shopping: performs independently. * Managing Medications: performs independently. * Housework / Basic Home Maintenance: performs independently. * Falls Risk Screening:. MADIHA has fallen in the last 6 months. Her fall did not result in injury. * Home safety risk factors: none. * Advance directives:. Patient has living will. Patient has healthcare POA. * Mrs. Perales was seen today for a routine follow-up of her depression, anxiety, rosacea, and Medicare wellness visit. * Medication(s) are being taken and tolerated as prescribed, without concerns, list reconciled today. * No chest pain, shortness of breath, edema, or exertional concerns noted. * Previous labs reviewed. * Her only minor concern is that of rosacea, which has flared in recent months, despite using MetroGel twice daily. [facility] Work Phone: Instructions* Attachments The following attachments cannot be sent through Care Everywhere. * DASH Diet (Djiboutian) * Preventing falls in adults (Djiboutian) [facility] Reason for referral (narrative)* Diagnostic Procedure Only (Routine) - Closed Specialty Diagnoses / Procedures Referred By Ashley sigala Referred To Contact [facility] Diagnoses Abnormal finding on radiological examination of breast Procedures US BREAST LTD LEFT US BREAST UNI REAL TIME WITH IMAGE LIMITED Jannette Mendez MD [address] [place] [address] [facility] [address] [place] [address] Referral ID Status Reason Start Date Expiration Date V isits Requested Visits Authorized [id number] Closed Auto-Generate d Referral 01/21/2023 06/22/2023 1 1 T [facility] for referral (narrative)* Diagnostic Procedure Only (Routine) - Authorized Specialty Diagnoses / Procedures [facility] By [facility] Referred To Contact [facility] Diagnoses Abnormal finding on radiological examination of breast Procedures US BIOPSY BREAST LEFT BX BREAST W/DEVICE 1ST LESION ULTRASOUND GUID Jannette Mendez MD [address] [place] [address] [facility] [address] [place] [phone] Referral ID Status Reason Start Date Expiration Date Visits Requested Visits Authorized [id number] Authorized Auto-Generat ed Referral 01/21/2023 02/20/2024 1 1 [facility] for referral (narrative)* Diagnostic Procedure Only (Routine) - Closed Specialty Diagnoses / Procedures Referred By [facility] Referred To Contact [facility] Diagnoses Abnormal finding on radiological examination of breast Procedures US BREAST LTD LEFT US BREAST UNI REAL TIME WITH IMAGE LIMITED Jannette Mendez MD [address] [place] [address] [facility] [address] [place] [address] Referral ID Status Reason Start Date Expiration Date V isits Requested Visits Authorized [id number] Closed Auto-Generate d Referral 01/21/2023 06/22/2023 1 1 [facility] for referral (narrative)* Diagnostic Procedure Only (Routine) - Closed Specialty Diagnoses / Procedures Referred By Contac t Referred To Contact [facility] IMAGING Diagnoses Abnormal finding on radiological examination of breast Procedures US BIOPSY BREAST LEFT BX BREAST W/DEVICE 1ST LESION ULTRASOUND GUID Jannette Mendez MD [address] [place] [address] [facility] [address] [place] [address] Referral ID Status Reason Start Date Expiration Date V isits Requested Visits Authorized [id number] Closed Auto-Generate d Referral 01/21/2023 02/20/2024 1 1 [facility] for referral (narrative)* Diagnostic Procedure Only (Routine) - Pending Review Specialty Diagnoses / Procedures Referred By Contac t Referred To Contact [facility] IMAG[facility] Diagnoses Malignant neoplasm of upper-outer quadrant of left breast in female, estrogen receptor positive (HCC) Procedures LEE NDL LOC W LEE GD LEFT PERQ DEVICE PLACEMENT BREAST LOC 1ST LES W/GDNCE Torrie Choi MD [address] [address] [facility] [address] [place] [phone] Referral ID Status Reason Start Date Expiration Date Visits Requested Visits Authorized [id number] Pending Review Auto-Generat ed Referral 02/03/2023 03/04/2024 1 1 [facility] for referral (narrative)* Diagnostic Procedure Only (Routine) - New Request Specialty Diagnoses / Procedures Referred By Contac t Referred To Contact [facility] IM[facility] Diagnoses Visit for screening mammogram Malignant neoplasm of upper-outer quadrant of left breast in female, estrogen receptor positive (HCC) Procedures LEE SCREENING W SHIVA SCREENING DIGITAL BREAST TOMOSYNTHESIS BI SCREENING MAMMOGRAPHY BI 2-VIEW BREAST INC Lucius Spicer PA-C [address] [place] [address] [facility] [address] [place] [address] Referral ID Status Reason Start Date Expiration Date Visits Requested Visits Authorized [id number] New Request Auto-Generat ed Referral 02/04/2024 03/04/2025 1 1 T [facility] for referral (narrative)* Diagnostic Procedure Only (Routine) - Closed Specialty Diagnoses / Procedures Referred By Varshaac t Referred To Contact [facility] IM[facility] Diagnoses Visit for screening mammogram Malignant neoplasm of upper-outer quadrant of left breast in female, estrogen receptor positive (HCC) Procedures LEE SCREENING W SHIVA SCREENING DIGITAL BREAST TOMOSYNTHESIS BI SCREENING MAMMOGRAPHY BI 2-VIEW BREAST INC Lucius Spicer PA-C [address] [place] [address] Br Imaging [facility] [place] [address] Referral ID Status Reason Start Date Expiration Date V isits Requested Visits Authorized [id number] Closed Auto-Generate d Referral 02/04/2024 03/04/2025 1 1 T [facility] for referral (narrative)* Consultation (Routine) - Pending Review Specialty Diagnoses / Procedures Referred By Ashley sigala Referred To Contact Physical Therapy Diagnoses Parkinsonism, unspecified Parkinsonism type (Multi) Marie Devi MD [address] [facility], [place] [address] Referral ID Status Reason Start Date Expiration Date Visits Requested Visits Authorized [id number] Pending Review Specialty Services Required 02/18/2024 02/17/2025 1 1 [facility] Work Phone: Reason for visit Narrative* Diagnostic Procedure Only (Routine) - Closed Specialty Diagnoses / Procedures Referred By Ashley t Referred To Contact [facility] Diagnoses Abnormal finding on radiological examination of breast Procedures US BREAST LTD LEFT US BREAST UNI REAL TIME WITH IMAGE LIMITED Jannette Mendez MD [address] [place] [address] [facility] [address] [place] [phone] Referral ID Status Reason Start Date Expiration Date V isits Requested Visits Authorized [id number] Closed Auto-Generate d Referral 01/21/2023 06/22/2023 1 1 [facility] for visit Narrative* Diagnostic Procedure Only (Routine) - Closed Specialty Diagnoses / Procedures Referred By Contac t Referred To Contact [facility] IM[facility] Diagnoses Abnormal finding on radiological examination of breast Procedures US BIOPSY BREAST LEFT BX BREAST W/DEVICE 1ST LESION ULTRASOUND GUID Jannette Mendez MD [address] [place] [address] [facility] Imaging [address] [place] [phone] Referral ID Status Reason Start Date Expiration Date V isits Requested Visits Authorized [id number] Closed Auto-Generate d Referral 01/21/2023 02/20/2024 1 1 [facility] for visit Narrative* Diagnostic Procedure Only (Routine) - Closed Specialty Diagnoses / Procedures Referred By Varshaac t Referred To Contact [facility] Diagnoses Malignant neoplasm of upper-outer quadrant of left breast in female, estrogen receptor positive (HCC) Procedures LEE NDL LOC W LEE GD LEFT PERQ DEVICE PLACEMENT BREAST LOC 1ST LES W/GDMARLYNE Torrie Choi MD [address] [address] [facility] [address] [place] [phone] Referral ID Status Reason Start Date Expiration Date V isits Requested Visits Authorized [id number] Closed Auto-Generate d Referral 02/03/2023 03/04/2024 1 1 [facility] for visit Narrative* Diagnostic Procedure Only (Routine) - Closed Specialty Diagnoses / Procedures Referred By Contac t Referred To Contact [facility] IM[facility] Diagnoses Visit for screening mammogram Malignant neoplasm of upper-outer quadrant of left breast in female, estrogen receptor positive (HCC) Procedures LEE SCREENING W SHIVA SCREENING DIGITAL BREAST TOMOSYNTHESIS BI SCREENING MAMMOGRAPHY BI 2-VIEW BREAST INC Lucius Spicer PA-C [address] [place] [address] [facility] [address] [place] [address] Referral ID Status Reason Start Date Expiration Date V isits Requested Visits Authorized [id number] Closed Auto-Generate d Referral 02/04/2024 03/04/2025 1 1 [facility] Family History No Family History Records Found Mother Name Dates Details No pertinent family history( V49.89, Z78.9) Status:Active Father Name Dates Details Family history of (7 99.9, R99) Status:Active Mother Name Dates Details No pertinent family history( V49.89, Z78.9) Status:Active Father Name Dates Details Family history of (7 99.9, R99) Status:Active Mother Name Dates Details No pertinent family history( V49.89, Z78.9) Status:Active Father Name Dates Details Family history of (7 99.9, R99) Status:Active Unknown Family Member Name Dates Details No pertinent family history: Mother(V49.89, Z78.9) Status:Active : Father Status:Active Unknown Family Member Name Dates Details : Father Status:Active No pertinent family history: Mother(V49.89, Z78.9) Status:Active Unknown Family Member Name Dates Details No pertinent family history: Mother(V49.89, Z78.9) Status:Active : Father Status:Active Unknown Family Member Name Dates Details No pertinent family history: Mother(V49.89, Z78.9) Status:Active : Father Status:Active Unknown Family Member Name Dates Details No pertinent family history: Mother(V49.89, Z78.9) Status:Active : Father Status:Active Unknown Family Member Name Dates Details : Father Status:Active No pertinent family history: Mother(V49.89, Z78.9) Status:Active Unknown Family Member Name Dates Details : Father Status:Active No pertinent family history: Mother(V49.89, Z78.9) Status:Active Unknown Family Member Name Dates Details : Father Status:Active No pertinent family history: Mother(V49.89, Z78.9) Status:Active Unknown Family Member Name Dates Details : Father Status:Active No pertinent family history: Mother(V49.89, Z78.9) Status:Active Unknown Family Member Name Dates Details : Father Status:Active No pertinent family history: Mother(V49.89, Z78.9) Status:Active Unknown Family Member Name Dates Details : Father Status:Active No pertinent family history: Mother(V49.89, Z78.9) Status:Active Chief Complaint MADIHA PERALES is here for a follow-up for 6 months anxiety/depression , fasting .MADIHA PERALES is here for a follow-up for anxiety/depression no other concerns.* Here with her for her AMW, she has no concerns to address * Received flu shot today * Patient answered all questions prior to immunization * 1: Have you ever had Guillain-Center syndrome? (a viral illness resulting in neurological symptoms, including paralysis) (Yes/No): NO * 2. Have you ever had an anaphylactic reaction to prior flu vaccines? 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 anation Advance Directive(s) 01/17/2020 4:27 PM Date Activated Date Inactivated Comments 06/12/2023 7:03 PM 10/08/2023 8:56 AM Date Activated Date Inactivated Comments 06/05/2023 5:03 PM 06/08/2023 4:18 PM Question Answer Comments Full Code Order Discussed With: Patient Date Activated Date Inactivated Comments 06/12/2023 7:03 PM 10/08/2023 8:56 AM Date Activated Date Inactivated Comments 06/05/2023 5:03 PM 06/08/2023 4:18 PM Question Answer Comments Full Code Order Discussed With: Patient Date Activated Date Inactivated Comments 09/17/2024 5:12 PM Question Answer Comments Plan of Care: Code Status Discussion Completed Decision Maker: Patient Additional Code Status Specifications: DNR-CCA, DNI Healthcare Agents on File Name Relationship Healthcare Agent [facility] Communication Christiano Perales Spouse Health Care Agent Summary Purpose Reason for Referral Specialty Diagnoses / Procedures Referred By Contac t Referred To Contact Diagnoses Seborrheic keratosis Pigmented skin lesion suspicious for malignant neoplasm Procedures Shaving Epidermal/Dermal Dara Sorensen, DO [address] [facility] [place] [address] Referral ID Status Reason Start Date Expiration Date V isits Requested Visits Authorized [id number] Authorized 10/30/2022 04/28/2023 1 1 Specialty Diagnoses / Procedures Referred By Contac t Referred To Contact Radiation Oncology Diagnoses Malignant neoplasm of upper-outer quadrant of left breast in female, estrogen receptor positive (HCC) Procedures RAD/ONC CONSULT OFFICE/OUTPATIENT [facility] 60-74 MINUTES Torrie Choi MD [address] [address] Referral ID Status Reason Start Date Expiration Date Visits Requested Visits Authorized [id number] Authorized PCP Requested Referral 02/27/2023 02/27/2024 1 1 Specialty Diagnoses / Procedures Referred By Contac t Referred To Contact Oncology Diagnoses Malignant neoplasm of upper-outer quadrant of left breast in female, estrogen receptor positive (HCC) Procedures CONSULT TO ONCOLOGY OFFICE/OUTPATIENT [facility] 60-74 MINUTES Torrie Choi MD [address] [address] Referral ID Status Reason Start Date Expiration Date Visits Requested Visits Authorized [id number] Authorized PCP Requested Referral 02/27/2023 02/27/2024 1 1 Specialty Diagnoses / Procedures Referred By Contac t Referred To Contact Cardiology Diagnoses Malignant neoplasm of upper-outer quadrant of left breast in female, estrogen receptor positive (HCC) Other general symptoms and signs Procedures Transthoracic echocardiogram (TTE) complete with contrast, bubble, strain, and 3D PRN WV ECHO TTHRC R-T 2D W/WOM-MODE COMPL SPEC&COLR D WV TTE W OR WO FOL WCON,Stevie Lizarraga DO [address] [facility] [address] [place] [address] Referral ID Status Reason Start Date Expiration Date V isits Requested Visits Authorized [id number] Authorized 03/18/2023 09/14/2023 1 1 Referral ID Status Reason Start Date Expiration Date Visits Re quested Visits Authorized [id number] Closed 03/18/2023 09/14/2023 1 1 Specialty Diagnoses / Procedures Referred By Contac t Referred To Contact Cardiology Diagnoses Encounter for monitoring cardiotoxic drug therapy Procedures Transthoracic echocardiogram (TTE) complete with contrast, bubble, strain, and 3D PRN WV ECHO TTHRC R-T 2D W/WOM-MODE COMPL SPEC&COLR D WV TTE W OR WO FOL WCON,DOPPLER Stevie Escobedo, DO [address] [place] [address] Referral ID Status Reason Start Date Expiration Date V isits Requested Visits Authorized [id number] Authorized 05/20/2023 05/19/2024 1 1 Specialty Diagnoses / Procedures Referred By Contac t Referred To Contact Cardiology Diagnoses Malignant neoplasm of upper-outer quadrant of left breast in female, estrogen receptor positive (HCC) Localized edema Procedures Vascular US lower extremity venous duplex left Stevie Escobedo, DO [address] [place] [address] Referral ID Status Reason Start Date Expiration Date Visits Re quested Visits Authorized [id number] Closed 06/03/2023 06/02/2024 1 1 Referral ID Status Reason Start Date Expiration Date Visits Re quested Visits Authorized [id number] Closed 05/20/2023 05/19/2024 1 1 Specialty Diagnoses / Procedures Referred By Contac t Referred To Contact Radiology Diagnoses Malignant neoplasm of upper-outer quadrant of left female breast, unspecified estrogen receptor status (HCC) Procedures CT Sim WO Vicki Diego MD [address] [place] [address] Referral ID Status Reason Start Date Expiration Date Visits Re quested Visits Authorized [id number] Closed 07/02/2023 07/01/2024 1 1 Specialty Diagnoses / Procedures Referred By Contac t Referred To Contact Cardiology Diagnoses Admission for therapeutic drug monitoring Encounter for monitoring cardiotoxic drug therapy Procedures Transthoracic echocardiogram (TTE) complete with contrast, bubble, strain, and 3D PRN WV ECHO TTHRC R-T 2D W/WOM-MODE COMPL SPEC&COLR D WV TTE W OR WO FOL WCON,DOPPLER Fanny, Stevie E, DO [address] [place] [address] Referral ID Status Reason Start Date Expiration Date V isits Requested Visits Authorized [id number] Pending Review 07/29/2023 07/28/2024 1 1 Specialty Diagnoses / Procedures Referred By Contac t Referred To Contact Radiology Diagnoses Thyroid nodule Procedures US thyroid DulMarie arroyo MD [address] [place] [address], [facility] [address] [place] [address] Referral ID Status Reason Start Date Expiration Date Visits Requested Visits Authorized [id number] Pending Review Perform Procedure 07/30/2023 07/29/2024 1 1 Specialty Diagnoses / Procedures Referred By Contac t Referred To Contact Radiology Diagnoses Nontoxic single thyroid nodule Procedures US thyroid Marie Devi MD [address] [place] [address], [facility] [address] [place] [address] Referral ID Status Reason Start Date Expiration Date Visits Requested Visits Authorized [id number] Authorized Perform Procedure 07/30/2023 07/29/2024 1 1 Referral ID Status Reason Start Date Expiration Date Visits Requested Visits Authorized [id number] Pending Review Perform Procedure 07/26/2023 07/25/2024 1 1 Specialty Diagnoses / Procedures Referred By Contac t Referred To Contact Cardiology Diagnoses Admission for therapeutic drug monitoring Encounter for monitoring cardiotoxic drug therapy Procedures Transthoracic echocardiogram (TTE) complete with contrast, bubble, strain, and 3D PRN WV ECHO TTHRC R-T 2D W/WOM-MODE COMPL SPEC&COLR D WV TTE W OR WO FOL WCON,DOPPLER Fanny, Stevie E, DO [address] [place] [address] Referral ID Status Reason Start Date Expiration Date Visits Re quested Visits Authorized [id number] Closed 07/29/2023 07/28/2024 1 1 Medications Administered Section Inactive Administered Medications - up to 3 most recent administrations Medication Order MAR Action Action Date Dose Rate Site lidocaine (PF) 10 mg/mL (1 %) injection (XYLOCAINE) SUBCUTANEOUS, X (OR/PROCEDURE) PRN, Starting on Fri01/28/23 at 0835, Until Fri01/28/23 at 0835, Intraprocedure Given 01/28/2023 8:35 AM EDT 5 mL Breast, Left Inactive Administered Medications - up to 3 most recent administrations Medication Order MAR Action Action Date Dose Rate Site lidocaine (PF) 10 mg/mL (1 %) injection (XYLOCAINE) SUBCUTANEOUS, X (OR/PROCEDURE) PRN, Starting on Fri02/12/23 at 0916, Until Fri02/12/23 at 0916, Intraprocedure Given 02/12/2023 9:16 AM EDT 3 mL Breast, Left Additional Source Comments Source Comments (unrecognize d section and content) In the event this informatio n is protected by the Federal Confidentiality of Alcohol and Drug Abuse Patient Records regulations: The Federal rules restrict any use of the information to criminally investigate or prosecute any alcohol or drug abuse patient.[facility] the event this information is protected by the Federal Confidentiality of Alcohol and Drug Abuse Patient Records regulations: The Federal rules restrict any use of the information to criminally investigate or prosecute any alcohol or drug abuse patient.[facility] Center[facility] the event this information is protected by the Federal Confidentiality of Alcohol and Drug Abuse Patient Records regulations: The Federal rules restrict any use of the information to criminally investigate or prosecute any alcohol or drug abuse patient.[facility] Center[facility] the event this information is protected by the Federal Confidentiality of Alcohol and Drug Abuse Patient Records regulations: The Federal rules restrict any use of the information to criminally investigate or prosecute any alcohol or drug abuse patient.[facility] Center[facility] the event this information is protected by the Federal Confidentiality of Alcohol and Drug Abuse Patient Records regulations: The Federal rules restrict any use of the information to criminally investigate or prosecute any alcohol or drug abuse patient.[facility] CenterIn the event this information is protected by the Federal Confidentiality of Alcohol and Drug Abuse Patient Records regulations: The Federal rules restrict any use of the information to criminally investigate or prosecute any alcohol or drug abuse patient.[facility] CenterIn the event this information is protected by the Federal Confidentiality of Alcohol and Drug Abuse Patient Records regulations: The Federal rules restrict any use of the information to criminally investigate or prosecute any alcohol or drug abuse patient.[facility] CenterIn the event this information is protected by the Federal Confidentiality of Alcohol and Drug Abuse Patient Records regulations: The Federal rules restrict any use of the information to criminally investigate or prosecute any alcohol or drug abuse patient.[facility] CenterIn the event this information is protected by the Federal Confidentiality of Alcohol and Drug Abuse Patient Records regulations: The Federal rules restrict any use of the information to criminally investigate or prosecute any alcohol or drug abuse patient.[facility] CenterIn the event this information is protected by the Federal Confidentiality of Alcohol and Drug Abuse Patient Records regulations: The Federal rules restrict any use of the information to criminally investigate or prosecute any alcohol or drug abuse patient.[facility] CenterIn the event this information is protected by the Federal Confidentiality of Alcohol and Drug Abuse Patient Records regulations: The Federal rules restrict any use of the information to criminally investigate or prosecute any alcohol or drug abuse patient.[facility] CenterIn the event this information is protected by the Federal Confidentiality of Alcohol and Drug Abuse Patient Records regulations: The Federal rules restrict any use of the information to criminally investigate or prosecute any alcohol or drug abuse patient.[facility] CenterIn the event this information is protected by the Federal Confidentiality of Alcohol and Drug Abuse Patient Records regulations: The Federal rules restrict any use of the information to criminally investigate or prosecute any alcohol or drug abuse patient.[facility] CenterIn the event this information is protected by the Federal Confidentiality of Alcohol and Drug Abuse Patient Records regulations: The Federal rules restrict any use of the information to criminally investigate or prosecute any alcohol or drug abuse patient.[facility] CenterIn the event this information is protected by the Federal Confidentiality of Alcohol and Drug Abuse Patient Records regulations: The Federal rules restrict any use of the information to criminally investigate or prosecute any alcohol or drug abuse patient.[facility] CenterIn the event this information is protected by the Federal Confidentiality of Alcohol and Drug Abuse Patient Records regulations: The Federal rules restrict any use of the information to criminally investigate or prosecute any alcohol or drug abuse patient.[facility] CenterIn the event this information is protected by the Federal Confidentiality of Alcohol and Drug Abuse Patient Records regulations: The Federal rules restrict any use of the information to criminally investigate or prosecute any alcohol or drug abuse patient.[facility] CenterIn the event this information is protected by the Federal Confidentiality of Alcohol and Drug Abuse Patient Records regulations: The Federal rules restrict any use of the information to criminally investigate or prosecute any alcohol or drug abuse patient.[facility] CenterIn the event this information is protected by the Federal Confidentiality of Alcohol and Drug Abuse Patient Records regulations: The Federal rules restrict any use of the information to criminally investigate or prosecute any alcohol or drug abuse patient.[facility] CenterIn the event this information is protected by the Federal Confidentiality of Alcohol and Drug Abuse Patient Records regulations: The Federal rules restrict any use of the information to criminally investigate or prosecute any alcohol or drug abuse patient.[facility] CenterIn the event this information is protected by the Federal Confidentiality of Alcohol and Drug Abuse Patient Records regulations: The Federal rules restrict any use of the information to criminally investigate or prosecute any alcohol or drug abuse patient.[facility] CenterIn the event this information is protected by the Federal Confidentiality of Alcohol and Drug Abuse Patient Records regulations: The Federal rules restrict any use of the information to criminally investigate or prosecute any alcohol or drug abuse patient.[facility] CenterIn the event this information is protected by the Federal Confidentiality of Alcohol and Drug Abuse Patient Records regulations: The Federal rules restrict any use of the information to criminally investigate or prosecute any alcohol or drug abuse patient.[facility] Reason for Visit (unrecogniz ed section and content) Specialty Diagnoses / Procedures Referred By Ashley t Referred To Contact Radiology / [facility] Diagnoses Screening Mammogram, Z12.31 Procedures MAMMOGRAM SCREENING Marie Devi MD [address] [facility] [address] [place] [address] [facility] [address] [place] [address] Referral ID Status Reason Start Date Expiration Date V isits Requested Visits Authorized [id number] Outside PCP 09/21/2021 11/20/2021 1 1 Reason Comments mole Back Reason Comments MSO Reason Comments Depression Reason Comments Results Reason Comments Consult Breast surgery; L Reason Comments Anesthesia Consult Reason Comments Patient Update Reason Comments Radio Imaging Study Comments Reason Comments Gait Problem Results Go over blood work s he had done last week Reason Comments surgery concerns Reason Comments Surgical Followup Reason Comments Consult Reason Comments Breast Cancer Reason Onset Date Comments Med Refill 03/24/2023 Specialty Diagnoses / Procedures Referred By Contac t Referred To Contact Cardiology Diagnoses Malignant neoplasm of upper-outer quadrant of left breast in female, estrogen receptor positive (HCC) Other general symptoms and signs Procedures Transthoracic echocardiogram (TTE) complete with contrast, bubble, strain, and 3D PRN WV ECHO TTHRC R-T 2D W/WOM-MODE COMPL SPEC&COLR D WV TTE W OR WO FOL WCON,DOPPLER Stevie Escobedo DO [address] [facility] [address] [place] [address] Referral ID Status Reason Start Date Expiration Date Visits Re quested Visits Authorized [id number] Closed 03/18/2023 09/14/2023 1 1 Reason Comments OP Infusion Specialty Diagnoses / Procedures Referred By Contac t Referred To Contact Diagnoses Malignant neoplasm of upper-outer quadrant of left breast in female, estrogen receptor positive (HCC) Stevie Escobedo DO [address] [place] [address] [facility] [address] [place] [address] Referral ID Status Reason Start Date Expiration Date V isits Requested Visits Authorized [id number] Authorized 03/21/2023 09/17/2023 2 2 Reason Comments Breast Cancer Reason Comments Follow-up Patient fell last we ek and called in and spoke to Nurse. Referral ID Status Reason Start Date Expiration Date V isits Requested Visits Authorized [id number] Authorized 03/21/2023 09/17/2023 999 1001 Reason Onset Date Comments order for ECHO 05/12/2023 Reason Onset Date Comments Orders 06/03/2023 Specialty Diagnoses / Procedures Referred By Contac t Referred To Contact Cardiology Diagnoses Malignant neoplasm of upper-outer quadrant of left breast in female, estrogen receptor positive (HCC) Localized edema Procedures Vascular US lower extremity venous duplex left Stevie Escobedo, DO [address] [place] [address] Referral ID Status Reason Start Date Expiration Date Visits Re quested Visits Authorized [id number] Closed 06/03/2023 06/02/2024 1 1 Reason Onset Date Comments Lab Orders 06/09/2023 Reason Onset Date Comments Nutrition Counseling 06/11/2023 Specialty Diagnoses / Procedures Referred By Contac t Referred To Contact Cardiology Diagnoses Encounter for monitoring cardiotoxic drug therapy Procedures Transthoracic echocardiogram (TTE) complete with contrast, bubble, strain, and 3D PRN WV ECHO TTHRC R-T 2D W/WOM-MODE COMPL SPEC&COLR D WV TTE W OR WO FOL WCON,DOPPLER Stevie Escobedo, DO [address] [place] [address] [place] [address] Referral ID Status Reason Start Date Expiration Date Visits Re quested Visits Authorized [id number] Closed 05/20/2023 05/19/2024 1 1 Reason Comments Hospital Follow-up Was at [facility] was not r esponsive could not even stand, saying it was from the chemo Specialty Diagnoses / Procedures Referred By Ashley t Referred To Contact Radiology Diagnoses Malignant neoplasm of upper-outer quadrant of left female breast, unspecified estrogen receptor status (HCC) Procedures CT Sim WO Vicki Diego MD [address] [facility] [address] [place] [address] Referral ID Status Reason Start Date Expiration Date Visits Re quested Visits Authorized [id number] Closed 07/02/2023 07/01/2024 1 1 Reason Comments Follow-up Specialty Diagnoses / Procedures Referred By Ashley sigala Referred To Contact Diagnoses Malignant neoplasm of upper-outer quadrant of left breast in female, estrogen receptor positive (HCC) (HCC) Stevie Escobedo, DO [address] [place] [address] [facility] [address] [place] [address] Referral ID Status Reason Start Date Expiration Date V isits Requested Visits Authorized [id number] Authorized 03/21/2023 09/17/2023 999 1002 Reason Onset Date Comments Orders 07/29/2023 Reason Comments Medicare Annual Wellness Visit Juana sigala Pt presents for annual MWV- ABN was given to pt and signed, pt verbalized understanding. Pt would like to have her thyroid blood work checked. Pt has some dark moles with a dark scaly top on her back that she would like you to take a look at. Specialty Diagnoses / Procedures Referred By Ashley sigala Referred To Contact Radiology Diagnoses Thyroid nodule Procedures US thyroid Marie Devi MD [address] [facility] [place] [address] Referral ID Status Reason Start Date Expiration Date Visits Requested Visits Authorized [id number] Pending Review Perform Procedure 07/30/2023 07/29/2024 1 1 Specialty Diagnoses / Procedures Referred By Contac t Referred To Contact Radiology Diagnoses Nontoxic single thyroid nodule Procedures US thyroid Marie Devi MD [address] [facility] [place] [address] Referral ID Status Reason Start Date Expiration Date Visits Requested Visits Authorized [id number] Authorized Perform Procedure 07/30/2023 07/29/2024 1 1 Referral ID Status Reason Start Date Expiration Date Visits Requested Visits Authorized [id number] Pending Review Perform Procedure 07/26/2023 07/25/2024 1 1 Referral ID Status Reason Start Date Expiration Date V isits Requested Visits Authorized [id number] Authorized 03/21/2023 09/17/2023 999 1003 Referral ID Status Reason Start Date Expiration Date V isits Requested Visits Authorized [id number] Authorized 03/21/2023 09/17/2023 999 1004 Specialty Diagnoses / Procedures Referred By Contac t Referred To Contact Cardiology Diagnoses Admission for therapeutic drug monitoring Encounter for monitoring cardiotoxic drug therapy Procedures Transthoracic echocardiogram (TTE) complete with contrast, bubble, strain, and 3D PRN WV ECHO TTHRC R-T 2D W/WOM-MODE COMPL SPEC&COLR D WV TTE W OR WO FOL WCON,DOPPLER Stevie Escobeod DO [address] [place] [address] Referral ID Status Reason Start Date Expiration Date Visits Re quested Visits Authorized [id number] Closed 07/29/2023 07/28/2024 1 1 Specialty Diagnoses / Procedures Referred By Contac t Referred To Contact Diagnoses Malignant neoplasm of upper-outer quadrant of left breast in female, estrogen receptor positive (HCC) Stevie Escobedo DO [address] [place] [place] [address] [facility] [address] [place] [address] Referral ID Status Reason Start Date Expiration Date V isits Requested Visits Authorized [id number] Authorized 03/21/2023 09/17/2023 999 1005 Reason Onset Date Comments Nutrition Counseling 10/06/2023 Specialty Diagnoses / Procedures Referred By Ashley sigala Referred To Contact [facility] [address] [place] [address] Referral ID Status Reason Start Date Expiration Date V isits Requested Visits Authorized [id number] New Request 10/15/2023 12/14/2023 Reason Comments Follow-up Pt is here for a hos pital follow up. Pt states she is doing better. Pt states she has no new concerns to discuss today. Reason Comments Breast Mass Reason Comments Patient Question Reason Comments Follow Up follow up Malignant neoplasm of upper-outer quadrant of left breast in female, estrogen receptor positive (HCC) [facility] Oncology Notes under scanned Documents Reason Comments Erroneous encounter-disregard Reason Comments Home Care Start of care confir mation call Specialty Diagnoses / Procedures Referred By Ashley sigala Referred To Contact Diagnoses Malignant neoplasm of upper-outer quadrant of left breast in female, estrogen receptor positive (HCC) Stevie Escobedo, [address] [facility] [address] [place] [address] Phone: tel: fax: [facility] [address] [place] [address] Phone: tel: Reason Comments Follow-up Citlaly is here to follo w up for Parkinsonism/ dep. Her Marcos has a few questions to discuss today., Reason Comments Med Refill Reason Comments Medicare Annual Wellness Visit Juana t Pt presents for annual MWV- ABN was given to pt and signed, pt verbalized understanding. Care Teams (unrecognized sec tion and content) Sales And Marketing Specialist Relationship Specialty Start Date End Date Marie Devi MD PCP - General Family Practice 07/16/13 Sales And Marketing Specialist Relationship Specialty Start Date End Date Marie Devi MD PCP - General Family Practice 07/16/13 Sales And Marketing Specialist Relationship Specialty Start Date End Date Marie Devi MD [address] [facility] [place] [address] PCP - General 08/19/12 Marie Devi MD [address] [facility] [place] [address] PCP - [employer]age PCP 06/23/21 Sales And Marketing Specialist Relationship Specialty Start Date End Date Marie Devi MD [address] [facility] [place] [address] PCP - General 08/19/12 Marie Devi MD [address] [facility] [place] [address] PCP - [employer]vantage PCP 06/23/21 Sales And Marketing Specialist Relationship Specialty Start Date End Date Marie Devi MD PCP - General Family Medicine 07/16/13 Sales And Marketing Specialist Relationship Specialty Start Date End Date Marie Devi MD PCP - General Family Medicine 07/16/13 Sales And Marketing Specialist Relationship Specialty Start Date End Date Marie Devi MD PCP - General Family Medicine 07/16/13 Sales And Marketing Specialist Relationship Specialty Start Date End Date Marie Devi MD PCP - General Family Medicine 07/16/13 Sales And Marketing Specialist Relationship Specialty Start Date End Date Marie Devi MD [address] [facility] [place] [address] PCP - General 08/19/12 Marie Devi MD [address] [facility] [place] [address] PCP - [facility] Medicare Advantage PCP 06/23/21 Sales And Marketing Specialist Relationship Specialty Start Date End Date Marie Devi MD PCP - General Family Medicine 07/16/13 Sales And Marketing Specialist Relationship Specialty Start Date End Date Marie Devi MD PCP - General Family Medicine 07/16/13 Sales And Marketing Specialist Relationship Specialty Start Date End Date Marie Devi MD PCP - General Family Medicine 07/16/13 Sales And Marketing Specialist Relationship Specialty Start Date End Date Marie Devi MD PCP - General Family Medicine 07/16/13 Sales And Marketing Specialist Relationship Specialty Start Date End Date Marie Devi MD PCP - General Family Medicine 07/16/13 Sales And Marketing Specialist Relationship Specialty Start Date End Date Marie Devi MD PCP - General Family Medicine 07/16/13 Sales And Marketing Specialist Relationship Specialty Start Date End Date Marie Devi MD PCP - General Family Medicine 07/16/13 Sales And Marketing Specialist Relationship Specialty Start Date End Date Marie Devi MD [address] [facility] [place] [address] PCP - General 08/19/12 Marie Devi MD [address] [facility] [place] [address] PCP - [employer] Medicare Advantage PCP 06/23/21 Sales And Marketing Specialist Relationship Specialty Start Date End Date Marie Devi MD PCP - General Family Medicine 07/16/13 Sales And Marketing Specialist Relationship Specialty Start Date End Date Marie Devi MD PCP - General Family Medicine 07/16/13 Sales And Marketing Specialist Relationship Specialty Start Date End Date Marie Devi MD [address] [facility] [place] [address] PCP - General Family Medicine 03/06/23 Vicki Diego MD [address] [place] [address] [place] [address] Radiation Oncologist Radiation Oncology 03/06/23 Sales And Marketing Specialist Relationship Specialty Start Date End Date Marie Devi MD [address] [facility] [place] [address] PCP - General Family Medicine 03/06/23 Vicki Diego MD [address] [place] [address] [place] [address] Radiation Oncologist Radiation Oncology 03/06/23 Stevie Escobedo DO [address] [place] [address] [place] [address] Consulting Physician Hematology and Oncology 03/18/23 Sales And Marketing Specialist Relationship Specialty Start Date End Date Marie Devi MD [address] [facility] [place] [address] PCP - General Family Medicine 03/06/23 Vicki Diego MD [address] [place] [address] [place] [address] Radiation Oncologist Radiation Oncology 03/06/23 Stevie Escobedo DO [address] [place] [address] [place] [address] Consulting Physician Hematology and Oncology 03/18/23 Sales And Marketing Specialist Relationship Specialty Start Date End Date Marie Devi MD [address] [facility] [place] [address] PCP - General Family Medicine 03/06/23 Vicki Diego MD [address] [place] [address] [place] [address] Radiation Oncologist Radiation Oncology 03/06/23 Stevie Escobedo DO [address] [place] [address] [place] [address] Consulting Physician Hematology and Oncology 03/18/23 Sales And Marketing Specialist Relationship Specialty Start Date End Date Marie Devi MD [address] [facility] [place], [place] [address] PCP - General Family Medicine 03/06/23 Vicki Diego MD [address] [place] [address] [place] [address] Radiation Oncologist Radiation Oncology 03/06/23 Stevie Escobedo DO [address] [place] [address] [place] [address] Consulting Physician Hematology and Oncology 03/18/23 Sales And Marketing Specialist Relationship Specialty Start Date End Date Marie Devi MD [address] [facility] [place] [address] PCP - General Family Medicine 03/06/23 Vicki Diego MD [address] [place] [address] [place], [place] [id number] Radiation Oncologist Radiation Oncology 03/06/23 Stevie Escobedo DO [address] [place] [address] [place] [address] Consulting Physician Hematology and Oncology 03/18/23 Sales And Marketing Specialist Relationship Specialty Start Date End Date Marie Devi MD [address] [facility] [place], [place] [address] PCP - General Family Medicine 03/06/23 Vicki Diego MD [address] [place] [address] [place] [address] Radiation Oncologist Radiation Oncology 03/06/23 Stevie Escobedo DO [address] [place] [address] [place] [address] Consulting Physician Hematology and Oncology 03/18/23 Sales And Marketing Specialist Relationship Specialty Start Date End Date Marie Devi MD [address] [facility] [place], [place] [address] PCP - General Family Medicine 03/06/23 Vicki Diego MD [address] [place] [address] [place], [place] [id number] Radiation Oncologist Radiation Oncology 03/06/23 Stevie Escobedo DO [address] [place] [address] [place] [address] Consulting Physician Hematology and Oncology 03/18/23 Sales And Marketing Specialist Relationship Specialty Start Date End Date Marie Devi MD [address] [facility], [facility] [address] [place] [address] PCP - General Family Medicine 03/06/23 Vicki Diego MD [address] [place] [address] [place] [address] Radiation Oncologist Radiation Oncology 03/06/23 Stevie Escobedo DO [address] [place] [address] [place] [address] Consulting Physician Hematology and Oncology 03/18/23 Sales And Marketing Specialist Relationship Specialty Start Date End Date Marie Devi MD [address] [facility], [facility] [address] [place] [address] PCP - General Family Medicine 03/06/23 Vicki Diego MD [address] [place] [address] [place] [address] Radiation Oncologist Radiation Oncology 03/06/23 Stevie Escobedo DO [address] [place] [address] [place] [address] Consulting Physician Hematology and Oncology 03/18/23 Sales And Marketing Specialist Relationship Specialty Start Date End Date Marie Devi MD [address] [facility] [place] [address] PCP - General Family Medicine 03/06/23 Vicki Diego MD [address] [place] [address] [place] [address] Radiation Oncologist Radiation Oncology 03/06/23 Stevie Escobedo DO [address] [place] [address] [place] [address] Consulting Physician Hematology and Oncology 03/18/23 Sales And Marketing Specialist Relationship Specialty Start Date End Date Marie Devi MD [address] [facility], [address] [place] [address] PCP - General Family Medicine 03/06/23 Vicki Diego MD [address] [place] [address] [place] [address] Radiation Oncologist Radiation Oncology 03/06/23 Stevie Escobedo DO [address] [place] [address] [place] [address] Consulting Physician Hematology and Oncology 03/18/23 Sales And Marketing Specialist Relationship Specialty Start Date End Date Marie Devi MD [address] [facility], [address] [place] [address] PCP - General Family Medicine 03/06/23 Vicki Diego MD [address] [place] [address] [place] [address] Radiation Oncologist Radiation Oncology 03/06/23 Stevie Escobedo DO [address] [place] [address] [place] [address] Consulting Physician Hematology and Oncology 03/18/23 Sales And Marketing Specialist Relationship Specialty Start Date End Date Marie Devi MD [address] [facility], [address] [place] [address] PCP - General Family Medicine 03/06/23 Vicki Diego MD [address] [place] [address] [place] [address] Radiation Oncologist Radiation Oncology 03/06/23 Stevie Escobedo DO [address] [place] [address] [place] [address] Consulting Physician Hematology and Oncology 03/18/23 Sales And Marketing Specialist Relationship Specialty Start Date End Date Marie Devi MD [address] [facility], [address] [place] [address] PCP - General Family Medicine 03/06/23 Vicki Diego MD [address] [place] [address] [place] [address] Radiation Oncologist Radiation Oncology 03/06/23 Stevie Escobedo DO [address] [place] [address] [place] [address] Consulting Physician Hematology and Oncology 03/18/23 Sales And Marketing Specialist Relationship Specialty Start Date End Date Marie Devi MD [address] [facility], [address] [place] [address] PCP - General Family Medicine 03/06/23 Vicki Diego MD [address] [place] [address] [place] [address] Radiation Oncologist Radiation Oncology 03/06/23 Stevie Escobedo DO [address] [place] [address] Consulting Physician Hematology and Oncology 03/18/23 Sales And Marketing Specialist Relationship Specialty Start Date End Date Marie Devi MD [address] [facility], [address] [place] [address] PCP - General Family Medicine 03/06/23 Vicki Diego MD [address] [place] [place] [address] Radiation Oncologist Radiation Oncology 03/06/23 Stevie Escobedo DO [address] [place] [place] [address] Consulting Physician Hematology and Oncology 03/18/23 Sales And Marketing Specialist Relationship Specialty Start Date End Date Marie Devi MD [address] [facility], [address] [place] [address] PCP - General Family Medicine 03/06/23 Vicki Diego MD [address] [place] [place] [address] Radiation Oncologist Radiation Oncology 03/06/23 Stevie Escobedo DO [address] [place] [address] Consulting Physician Hematology and Oncology 03/18/23 Sales And Marketing Specialist Relationship Specialty Start Date End Date Marie Devi MD [address] [facility], [address] [place] [address] PCP - General Family Medicine 03/06/23 Vicki Diego MD [address] [place] [address] Radiation Oncologist Radiation Oncology 03/06/23 Stevie Escobedo DO [address] [place] [address] Consulting Physician Hematology and Oncology 03/18/23 Sales And Marketing Specialist Relationship Specialty Start Date End Date Marie Devi MD [address] [facility], [address] [place] [address] PCP - General Family Medicine 03/06/23 Vicki Diego MD [address] [place] [address] Radiation Oncologist Radiation Oncology 03/06/23 Stevie Escobedo DO [address] [place] [address] Consulting Physician Hematology and Oncology 03/18/23 Sales And Marketing Specialist Relationship Specialty Start Date End Date Marie Devi MD [address] [facility], [address] [place] [address] PCP - General Family Medicine 03/06/23 Vicki Diego MD [address] [place] [address] Radiation Oncologist Radiation Oncology 03/06/23 Stevie Escobedo DO [address] [place] [address] Consulting Physician Hematology and Oncology 03/18/23 Sales And Marketing Specialist Relationship Specialty Start Date End Date Marie Devi MD [address] [facility], [facility] 1 [place] [address] PCP - General Family Medicine 03/06/23 Vicki Diego MD [address] [place] [address] Radiation Oncologist Radiation Oncology 03/06/23 Stevie Escobedo DO [address] [place] [address] Consulting Physician Hematology and Oncology 03/18/23 Sales And Marketing Specialist Relationship Specialty Start Date End Date Marie Devi MD [address] [facility], [address] [place] [address] PCP - General Family Medicine 03/06/23 Vicki Diego MD [address] [place] [place] [address] Radiation Oncologist Radiation Oncology 03/06/23 Stevie Escobedo DO [address] [place] [address] Consulting Physician Hematology and Oncology 03/18/23 Sales And Marketing Specialist Relationship Specialty Start Date End Date Marie Devi MD [address] [facility], [address] [place] [address] PCP - General Family Medicine 03/06/23 Vicki Diego MD [address] [place] [place] [address] Radiation Oncologist Radiation Oncology 03/06/23 Stevie Escobedo DO [address] [place] [place] [address] Consulting Physician Hematology and Oncology 03/18/23 Sales And Marketing Specialist Relationship Specialty Start Date End Date Marie Devi MD [address] [facility], [address] [place] [address] PCP - General Family Medicine 03/06/23 Vicki Diego MD [address] [place] [place] [address] Radiation Oncologist Radiation Oncology 03/06/23 Stevie Escobedo DO [address] [place] [address] Consulting Physician Hematology and Oncology 03/18/23 Sales And Marketing Specialist Relationship Specialty Start Date End Date Marie Devi MD [address] [facility], [address] [place] [address] PCP - General 08/19/12 Marie Devi MD [address] [facility], [address] [place] [address] PCP - [employer] Medicare Advantage PCP 06/23/21 Mirta Brody, medical charge entry specialistCruise Consultant 06/09/23 Sales And Marketing Specialist Relationship Specialty Start Date End Date Marie Devi MD [address] [facility], [address] [place] [address] PCP - General Family Medicine 03/06/23 Vicki Diego MD [address] [place] [place] [address] Radiation Oncologist Radiation Oncology 03/06/23 Stevie Escobedo DO [address] [place] [place] [address] Consulting Physician Hematology and Oncology 03/18/23 Sales And Marketing Specialist Relationship Specialty Start Date End Date Marie Devi MD [address] [facility], [address] [place] [address] PCP - General Family Medicine 03/06/23 Vicki Diego MD [address] [place] [address] Radiation Oncologist Radiation Oncology 03/06/23 Stevie Escobedo DO [address] [place] [address] Consulting Physician Hematology and Oncology 03/18/23 Sales And Marketing Specialist Relationship Specialty Start Date End Date Marie Devi MD [address] [facility], [address] [place] [address] PCP - General Family Medicine 03/06/23 Vicki Diego MD [address] [place] [address] Radiation Oncologist Radiation Oncology 03/06/23 Stevie Escobedo DO [address] [place] [place] [address] Consulting Physician Hematology and Oncology 03/18/23 Sales And Marketing Specialist Relationship Specialty Start Date End Date Marie Devi MD [address] [facility], [address] [place] [address] PCP - General Family Medicine 03/06/23 Vicki Digeo MD [address] [place] [place] [address] Radiation Oncologist Radiation Oncology 03/06/23 Stevie Escobedo DO [address] [place] [place] [address] Consulting Physician Hematology and Oncology 03/18/23 Sales And Marketing Specialist Relationship Specialty Start Date End Date Marie Devi MD [address] [facility], [address] [place] [address] PCP - General Family Medicine 03/06/23 Vicki Diego MD [address] [place] [place] [address] Radiation Oncologist Radiation Oncology 03/06/23 Stevie Escobedo DO [address] [place] [place] [address] Consulting Physician Hematology and Oncology 03/18/23 Sales And Marketing Specialist Relationship Specialty Start Date End Date Marie Devi MD [address] [facility], [address] [place] [address] PCP - General Family Medicine 03/06/23 Vicki Diego MD [address] [place] [place] [address] Radiation Oncologist Radiation Oncology 03/06/23 Stevie Escobedo DO [address] [place] [place] [address] Consulting Physician Hematology and Oncology 03/18/23 Sales And Marketing Specialist Relationship Specialty Start Date End Date Marie Devi MD [address] [facility], [address] [place], [place] [address] PCP - General Family Medicine 03/06/23 Vicki Diego MD [address] [place] [place] [address] Radiation Oncologist Radiation Oncology 03/06/23 Stevie Escobedo DO [address] [place] [place] [address] Consulting Physician Hematology and Oncology 03/18/23 Sales And Marketing Specialist Relationship Specialty Start Date End Date Marie Devi MD [address] [facility], [address] [place], [place] [address] PCP - General Family Medicine 03/06/23 Vicki Diego MD [address] [place] [address] [place] [address] Radiation Oncologist Radiation Oncology 03/06/23 Stevie Escobedo DO [address] [place] [address] Consulting Physician Hematology and Oncology 03/18/23 Sales And Marketing Specialist Relationship Specialty Start Date End Date Marie Devi MD [address] [facility], [address] [place] [address] PCP - General 08/19/12 Marie Devi MD [address] [facility], [address] [place] [address] PCP - [employer] Medicare Advantage PCP 06/23/21 Mirta Brody, medical charge entry specialistCruise Consultant 06/09/23 Sales And Marketing Specialist Relationship Specialty Start Date End Date Marie Devi MD [address] [facility], [address] [place] [address] PCP - General 08/19/12 Marie Devi MD [address] [facility], [address] [place] [address] PCP - [employer] Medicare Advantage PCP 06/23/21 Mirta Brody, medical charge entry specialistCruise Consultant 06/09/23 Sales And Marketing Specialist Relationship Specialty Start Date End Date Marie Devi MD [address] [facility], [address] [place] [address] PCP - General 08/19/12 Marie Devi MD [address] [facility], [address] [place], [place] [address] PCP - [employer] Medicare Advantage PCP 06/23/21 Mirta Brody, medical charge entry specialistCruise Consultant 06/09/23 Sales And Marketing Specialist Relationship Specialty Start Date End Date Marie Devi MD [address] [facility], [address] [place] [address] PCP - General Family Medicine 03/06/23 Vicki Diego MD [address] [place] [address] Radiation Oncologist Radiation Oncology 03/06/23 Stevie Escobedo DO [address] [place] [address] Consulting Physician Hematology and Oncology 03/18/23 Sales And Marketing Specialist Relationship Specialty Start Date End Date Marie Devi MD [address] [facility], [address] [place], [place] [address] PCP - General Family Medicine 03/06/23 Vicki Diego MD [address] [place] [place] [address] Radiation Oncologist Radiation Oncology 03/06/23 Stevie Escobedo DO [address] [place] [address] Consulting Physician Hematology and Oncology 03/18/23 Sales And Marketing Specialist Relationship Specialty Start Date End Date Marie Devi MD [address] [facility], [address] [place] [address] PCP - General Family Medicine 03/06/23 Vicki Diego MD [address] [facility], [address] [place] [address] Radiation Oncologist Radiation Oncology 03/06/23 Stevie Escobedo DO [address] [place] [place] [address] Consulting Physician Hematology and Oncology 03/18/23 Sales And Marketing Specialist Relationship Specialty Start Date End Date Marie Devi MD [address] [facility], [address] [place] [address] PCP - General Family Medicine 03/06/23 Vicki Diego MD [address] [facility], [address] [place], [place] [address] Radiation Oncologist Radiation Oncology 03/06/23 Stevie Escobedo DO [address] [place] [address] Consulting Physician Hematology and Oncology 03/18/23 Sales And Marketing Specialist Relationship Specialty Start Date End Date Marie Devi MD [address] [facility], [address] [place], [place] [address] PCP - General Family Medicine 03/06/23 Vicki Diego MD [address] [facility], [address] [place], [place] [address] Radiation Oncologist Radiation Oncology 03/06/23 Stevie Escobedo DO [address] [place], [place] [address] Consulting Physician Hematology and Oncology 03/18/23 Sales And Marketing Specialist Relationship Specialty Start Date End Date Marie Devi MD [address] [facility], [address] [place] [address] PCP - General Family Medicine 03/06/23 Vicki Diego MD [address] [facility], [address] [place] [address] Radiation Oncologist Radiation Oncology 03/06/23 Stevie Escobedo DO [address] [place] [address] Consulting Physician Hematology and Oncology 03/18/23 Sales And Marketing Specialist Relationship Specialty Start Date End Date Marie Devi MD [address] [facility], [address] [place] [address] PCP - General Family Medicine 03/06/23 Vicki Diego MD [address] [facility], [address] [place] [address] Radiation Oncologist Radiation Oncology 03/06/23 Stevie Escobedo DO [address] [place], [place] [address] Consulting Physician Hematology and Oncology 03/18/23 Sales And Marketing Specialist Relationship Specialty Start Date End Date Marie Devi MD PCP - General Family Medicine 07/16/13 Luana Montgomery MD [address] [place] [id number] Referring Internal Medicine 06/08/23 Marie Devi MD [address] [facility] [address] [place] [address] Home Care Provider Family Medicine 06/09/23 Sales And Marketing Specialist Relationship Specialty Start Date End Date Marie Devi MD [address] [facility], [facility] 1 [place] [address] PCP - General Family Medicine 03/06/23 Vicki Diego MD [address] [facility], [facility] 1 [place] [address] Radiation Oncologist Radiation Oncology 03/06/23 Stevie Escobedo DO [address] [place] [place] [address] Consulting Physician Hematology and Oncology 03/18/23 Sales And Marketing Specialist Relationship Specialty Start Date End Date Marie Devi MD [address] [facility], [address] [place] [address] PCP - General Family Medicine 03/06/23 Vicki Diego MD [address] [facility], [address] [place], [place] [address] Radiation Oncologist Radiation Oncology 03/06/23 Stevie Escobedo DO [address] [place] [address] Consulting Physician Hematology and Oncology 03/18/23 Sales And Marketing Specialist Relationship Specialty Start Date End Date Marie Devi MD [address] [facility], [address] [place] [address] PCP - General 08/19/12 Marie Devi MD [address] [facility], [address] [place] [address] PCP - [employer] Medicare Advantage PCP 06/23/21 Ivanna Godinez MA Personnel CounselorCruise Consultant 10/29/23 Sales And Marketing Specialist Relationship Specialty Start Date End Date Marie Devi MD [address] [facility], [address] [place] [address] PCP - General Family Medicine 03/06/23 Vicki Diego MD [address] [facility], [address] [place] [address] Radiation Oncologist Radiation Oncology 03/06/23 Stevie Escobedo DO [address] [facility] [address] [place] [address] Consulting Physician Hematology and Oncology 03/18/23 Sales And Marketing Specialist Relationship Specialty Start Date End Date Marie Devi MD [address] [facility], [address] [place], [place] [address] PCP - General Family Medicine 03/06/23 Vicki Diego MD [address] [facility], [address] [place], [place] [address] Radiation Oncologist Radiation Oncology 03/06/23 Stevie Escobedo DO [address] [place] [address] [place] [address] Consulting Physician Hematology and Oncology 03/18/23 Sales And Marketing Specialist Relationship Specialty Start Date End Date Marie Devi MD PCP - General Family Medicine 07/16/13 Luana Montgomery MD [address] [place] [address] Referring Internal Medicine 06/08/23 Marie Devi MD [address] [facility] [address] [place] [address] Home Care Provider Family Medicine 06/09/23 Sales And Marketing Specialist Relationship Specialty Start Date End Date Marie Devi MD PCP - General Family Medicine 07/16/13 Luana Montgomery MD [address] [place] [address] Referring Internal Medicine 06/08/23 Marie Devi MD [address] [facility] [address] [place] [address] Home Care Provider Family Medicine 06/09/23 Sales And Marketing Specialist Relationship Specialty Start Date End Date Marie Devi MD [address] [facility], [address] [place] [address] PCP - General Family Medicine 03/06/23 Vicki Diego MD [address] [facility], [address] [place] [address] Radiation Oncologist Radiation Oncology 03/06/23 Stevie Escobedo DO [address] [facility] [address] [place] [address] Consulting Physician Hematology and Oncology 03/18/23 Sales And Marketing Specialist Relationship Specialty Start Date End Date Marie Devi MD PCP - General Family Medicine 07/16/13 Luana Montgomery MD [address] [place] [address] Referring Internal Medicine 06/08/23 Marie Devi MD [address] [address] Home Care Provider Family Medicine 06/09/23 Sales And Marketing Specialist Relationship Specialty Start Date End Date Marie Devi MD PCP - General Family Medicine 07/16/13 Lunaa [place] MD [address] [place] [address] Referring Internal Medicine 06/08/23 Marie Devi MD [address] [address] Home Care Provider Family Medicine 06/09/23 Yony Osullivan, RN [address] [place] [address] Bus Cleaner Post Acute Care 06/09/23 06/26/23 Sales And Marketing Specialist Relationship Specialty Start Date End Date Marie Devi MD PCP - General Family Medicine 07/16/13 Luana Montgomery MD [address] [place] [id number] Referring Internal Medicine 06/08/23 Marie Devi MD [address] [facility] [address] [place], [place] [address] Home Care Provider Family Medicine 06/09/23 Yony Osullivan, RN [address] [place], [place] [id number] Bus Cleaner Post Acute Care 06/09/23 06/26/23 Sales And Marketing Specialist Relationship Specialty Start Date End Date Marie Devi MD [address] [facility], [address] [place] [address] PCP - General Family Medicine 03/06/23 Vicki Diego MD [address] [facility], [facility] 1 [place] [address] Radiation Oncologist Radiation Oncology 03/06/23 Stevie Escobedo DO [address] [facility] [address] [place] [address] Consulting Physician Hematology and Oncology 03/18/23 Sales And Marketing Specialist Relationship Specialty Start Date End Date Marie Devi MD [address] [facility], [address] [place], [place] [address] PCP - General 08/19/12 Marie Devi MD [address] [facility], [address] [place], [place] [address] PCP - [employer] Medicare Advantage PCP 06/23/21 Sales And Marketing Specialist Relationship Specialty Start Date End Date Marie Devi MD [address] [facility], [address] [place] [address] PCP - General Family Medicine 03/06/23 Vicki Diego MD [address] [facility], [address] [place] [address] Radiation Oncologist Radiation Oncology 03/06/23 Stevie Escobedo DO [address] [place] [address] Consulting Physician Hematology and Oncology 03/18/23 Sales And Marketing Specialist Relationship Specialty Start Date End Date Leonardo Santos DO [address] [facility] [address] [place] [address] PCP - General Family Medicine 08/10/24 Vicki Diego MD Radiation Oncologist Radiation Oncology 03/06/23 Stevie Escobedo DO [address] [place] [address] Consulting Physician Hematology and Oncology 03/18/23 Sales And Marketing Specialist Relationship Specialty Start Date End Date Marie Devi MD [address] [facility] [address] [place], [place] [address] PCP - [employer] Medicare Advantage PCP 06/23/21 Leonardo Santos DO 5[address] [facility], [address] [place] [address] PCP - General Family Medicine 08/12/24 INFORMATION SOURCE (unrecogn ized section and content) DATE CREATED AUTHOR 01/12/2022 [employer] DATE CREATED AUTHOR AUTHOR'S ORGANIZ ATION 02/07/2023 [facility] DATE CREATED AUTHOR AUTHOR'S ORGANIZ ATION 12/19/2023 [facility] DATE CREATED AUTHOR AUTHOR'S ORGANIZ ATION 04/14/2024 [facility] DATE CREATED AUTHOR AUTHOR'S ORGANIZ ATION 08/11/2024 [facility] DATE CREATED AUTHOR AUTHOR'S ORGANIZ ATION 09/19/2024 [facility] DATE CREATED AUTHOR AUTHOR'S ORGANIZ ATION 11/06/2024 [facility] DATE CREATED AUTHOR AUTHOR'S ORGANIZ ATION 12/10/2024 [facility] FOR RECORDS PERTAINING TO PATIENTS WHO ARE OR HAVE BEEN ENROLLED IN A CHEMICAL DEPENDENCY/SUBSTANCEABUSE PROGRAM, SOME INFORMATION MAY BE OMITTED. This clinical summary was aggregated from multiple sources. Caution should be exercised in using it in the provision of clinical care. This summary normalizes information from multiple sources, and as a consequence, information in this document may materially change the coding, format and clinical context of patient data. In addition, data may be omitted in some cases. CLINICAL DECISIONS SHOULD BE BASED ON THE PRIMARY CLINICAL RECORDS. [facility] [employer] [facility] provides no warranty or guarantee of the accuracy or completeness of information in this document.
--- OUTSIDE RECORDS SUMMARY | 2024-12-13 04:05 | XMS RPT_ITS | CCD ---
Author Organization [facility] Care Team Providers Care Soda Maker Name Role Phone Marie Devi Unavailable Unavailable [...] MD Unavailable Alvarez Escobedo DOa Sam Unavailable [phone] Mirta Brody RN Unavailable Unavailable Vicki Diego MD Unavailable [phone] Fuentes DOesa E Unavailable [phone] Marie Devi MD Primary Care Provider Luana [...] Unavailable Marie Devi MD Primary Care Provider MARIE DEVI Primary Care Unavailable FANNY, STEVIE [...] Attending Unavailable MARIE DEVI Primary Care Unavailable FNANY, STEVIE Referring Unavailable FANNY, STEVIE Attending Unavailable MARIE DEVI Primary Care Unavailable FANNY, STEVIE Referring Unavailable Vicki Diego MD Unavailable Stanec DO, Leonardo Primary Care Provider Marie Devi MD Unavailable Stansohail DO, Leonardo R Primary Care Provider [phone] MARIE DEVI Attending Unavailable MARIE DEVI Primary [...] (3 sources) Alendronate; Translations: [Fosamax] Drug Allergy Day [facility] Work Phone: Cephalosporins (antibiotic) (3 sources) Cephalexin; Translations: [Keflex TABS] Drug Allergy Day [facility] Work Phone: [phone] Penicillins (antibiotic) (3 sources) Penicillins; Translations: [Penicillins] Drug Allergy Day [facility] Work Phone: pregabalin (3 sources) pregabalin; Translations: [Lyrica CAPS] Drug Allergy Day [facility] Work Phone: Serotonin Reuptake Inhibitors (SSRIs) (3 sources) Escitalopram Drug Allergy Day [facility] Work Phone: [phone] (11 sources) Alendronate; Translations: [Fosamax] Drug Allergy Day [facility] Work Phone: [phone] (20 sources) Aspirin; Translations: [Adult Aspirin Low Strength TBDP] Drug Allergy 10-31-19 23 Other Day [facility] Work Phone: [phone] (20 sources) Cephalexin; Translations: [Keflex TABS] Drug Allergy 05-07-20 10 Unknown [facility] Work Phone: (11 sources) Escitalopram Drug Allergy Day [facility] Work Phone: [phone] (15 sources) Penicillins; Translations: [Penicillins] Allergy to drug (finding) 05-12-20 10 [facility] (20 sources) pregabalin; Translations: [Lyrica CAPS] Drug Allergy 05-07-20 10 Unknown [facility] Work Phone: (20 sources) Alendronate; Translations: [ALENDRONIC ACID] Drug Allergy 05-07-20 10 Unknown, Other [facility] Work Phone: (20 sources) nickel; Translations: [NICKEL] Drug Allergy 05-07-20 10 Unknown [facility] Work Phone: (2 sources) Penicillins Drug Allergy 05-12-20 10 Unknown [facility] Work Phone: (20 sources) Salicylic Acid; Translations: [SALICYLATES] Drug Allergy 05-07-20 10 Unknown, Other [facility] Work Phone: (17 sources) CONTRAST DYE MRI [Other] Propensity to adverse reactions 06-14-20 10 [facility] (14 sources) Escitalopram; Translations: [ESCITALOPRAM OXALATE] Drug Allergy 10-25-19 23 Other [facility] Work Phone: (20 sources) Penicillins Drug Allergy 05-12-20 10 [facility] Work Phone: (12 sources) Salicylic Acid Drug Allergy 05-07-20 10 [facility] Work Phone: (20 sources) Iodinated Contrast Media; Translations: [IODINATED CONTRAST MEDIA] Drug Intolerance 06-14-20 10 [facility] Work Phone: (20 sources) Salicylate product Propensity to adverse reactions to drug 05-07-20 10 [facility] Work Phone: (20 sources) Alendronate Drug Allergy 05-07-20 10 Unknown, Other [facility] (20 sources) Escitalopram Drug Allergy 10-25-19 23 Other, Unknown [facility] (20 sources) Gadolinium Drug Allergy 03-06-20 [facility] (20 sources) Iodine; Translations: [IODINE] Drug Allergy 03-06-20 23 [facility] (20 sources) nickel sulfate Drug Allergy 05-07-20 10 Unknown [facility] (20 sources) Penicillins Drug Allergy 05-12-20 10 Unknown [facility] (20 sources) Pregabalin; Translations: [PREGABALIN] Allergy to substance 05-07-20 10 Unknown [facility] (7 sources) Prednisone & Diphenhydramine Drug Allergy 03-06-20 23 Unknown [facility] (10 sources) Acetaminophen / HYDROcodone; Translations: [HYDROCODONE-ACETA MINOPHEN] Drug Allergy 08-14-19 12 Nausea/vomitin g [facility] (2 sources) Aspirin; Translations: [ASPIRIN] Drug Allergy 10-31-19 23 [facility] (4 sources) Cephalexin; Translations: [CEPHALEXIN] Drug Allergy 05-07-20 10 [facility] (1 source) Penicillins Drug Allergy 05-12-20 10 Unknown [facility] Work Phone: Medications Current Medications Medication Drug [...] Start: 08-18-2018 take 1 capsule by mo [facility] once daily DULoxetine HCl - [...] hydrochloride 10 mg oral tablet (20 sources) K-tkkopb-D-aspartate Receptor Antagonist Start: take 1 tablet by [...] mouth daily. 10/28/2023 Active polyethylene glycol 3350 68005 mg powder for oral solution (3 sources) [...] of fiber by mouth daily. Active sennosides, intermediate 8.6 mg oral tablet (3 sources) Start: [...] completed) Start: 07-17-2022 take 1 capsule by [facility] once daily Doxycycline Hyclate 50 MG Oral [...] 02-05-2023 Episodic Other aftercare (2 sources) Other care home (current) drug therapy; Translations: [Other care home (current) drug therapy] Onset: 09-18-2023 Episodic Other aftercare (2 sources) halfway (current) use of aromatase inhibitors; Translations: [extermination supervisor (current) use of aromatase inhibitors] Onset: 09-05-2023 [...] EVALon 025 ANES POSTPROC EVAL HNO ID: [id number] Author: PUMA MADRIGAL MD Service: Anesthesiology Author Type: Anesthesiologist Type: Anesthesia Postprocedure Evaluation Filed: 12/10/2024 08:02 Note Text: POST ANESTHESIA EVALUATION NOTE : 1945 Procedure Summary Date: 12/09/24 Room / Location: [place] [address] / [place] Anesthesia Start: 1451 Anesthesia Stop: 1602 [...] December 10, 2024 TIME: 8:01 AM CSN: [id number] Normal [facility] Basic metabolic 2000 panelon 12-10-2024 Anion gap [Moles/Vol] 8 mmol/L Normal 8-15 [facility] Comment on above: Order Comment: Speci men Type: BLOOD SPECIMENOrdering Facility: [facility] Address: [address] [place] [address] Performed By: #### 2 4321-2 ####[facility]ORATORYCLIA [id number] [place] [address] [place] Calcium [Mass/Vol] 8.9 mg/dL Normal 8.5-10.2 [facility] Comment on above: Order Comment: Speci men Type: BLOOD SPECIMENOrdering Facility: [facility] Address: [address] [place] [address] Performed By: #### 2 4321-2 ####[facility]ORYCLIA [id number] [place] [address] [place] Chloride [Moles/Vol] 104 mmol/L Normal 98-107 [facility] Comment on above: Order Comment: Yoav men Type: BLOOD SPECIMENOrdering Facility: [facility] Address: [address] [place] [address] Performed By: #### 2 4321-2 ####[facility]ORATORYCLIA [id number] [place] [address] [place] CO2 [Moles/Vol] 30 mmol/L Normal 22-30 [facility] Comment on above: Order Comment: Speci men Type: BLOOD SPECIMENOrdering Facility: [facility] Address: [address] [place] [address] Performed By: #### 2 4321-2 ####[facility]ORATORYCLIA [id number] [address] Creatinine [Mass/Vol] 0.74 mg/dL Normal 0.58-0.96 [facility] Comment on above: Order Comment: Yoav men Type: BLOOD SPECIMENOrdering Facility: [facility] Address: [address] [place] [address] Performed By: #### 2 4321-2 ####[facility]ORATORYCLIA [id number] [address] Creatinine and Glomerular filtration rate.predicted panel (S/P/Bld) 83 mL/min/1.73m??? Normal >=60 [facility] Comment on above: Order Comment: oYav tai Type: BLOOD SPECIMENOrdering Facility: [facility] Address: [address] [place] [address] Result Comment: Mateo mated Glomerular Filtration Rate [...] Performed By: #### 2 4321-2 ####[facility]ORATORYCLIA [id number] [address] [place] Glucose [Mass/Vol] 91 mg/dL Normal 74-99 [facility] Comment on above: Order Comment: Speci men Type: BLOOD SPECIMENOrdering Facility: [facility] Address: [address] [place] [address] Result Comment: The [place] Diabetes Association (ADA) provides guidance for cutoff [...] Standards of Medical Care in Diabetes 2016, [place] [employer] Association. Diabetes Care. 2016.39(Suppl 1). Performed By: #### 2 4321-2 ####[facility]ORATORYCLIA [id number] [place] [address] [place] Potassium [Moles/Vol] 4.5 mmol/L Normal 3.7-5.1 [facility] Comment on above: Order Comment: Yoav lujan Type: BLOOD SPECIMENOrdering Facility: [facility] Address: [address] [place] [address] Performed By: #### 2 4321-2 ####[facility]ORATORYCLIA [id number] [place] [id number] [place] Sodium [Moles/Vol] 142 mmol/L Normal 136-144 [facility] Comment on above: Order Comment: Nehemiahi men Type: BLOOD SPECIMENOrdering Facility: [facility] Address: [address] [place], [place] [address] Performed By: #### 2 4321-2 ####[facility]ORATORYCLIA [id number] [place] [id number] [place] Urea nitrogen [Mass/Vol] 19 mg/dL Normal 7-21 [facility] Comment on above: Order Comment: Nehemiahi men Type: BLOOD SPECIMENOrdering Facility: [facility] Address: [address] [place] [address] Performed By: #### 2 4321-2 ####[facility]ORATORYCLIA [id number] [place] [address] [place] CBC W Auto Differential pane l (Bld)on 12-10-2024 Basophils (Bld) [#/Vol] 10*3/uL Normal <0.11 M [facility] Comment on above: Order Comment: Speci men Type: BLOOD SPECIMENOrdering Facility: [facility] Address: [address] [place] [address] Performed By: #### 5 7021-8 ####[facility]ORATORYCLIA [id number] [address] [place] Basophils/100 WBC (Bld) 0.0 % Normal [facility] Comment on above: Order Comment: Speci men Type: BLOOD SPECIMENOrdering Facility: [facility] Address: [address] [place] [address] Performed By: #### 5 7021-8 ####[facility]ORATORYCLIA [id number] [address] Differential cell count method Nom (Bld) Auto Normal [facility] Comment on above: Order Comment: Speci men Type: BLOOD SPECIMENOrdering Facility: [facility] Address: [address] [place] [address] Performed By: #### 5 7021-8 ####[facility]ORATORYCLIA [id number] [address] [place] Eosinophils (Bld) [#/Vol] 10*3/uL Normal <0.46 [facility] Comment on above: Order Comment: Speci men Type: BLOOD SPECIMENOrdering Facility: [facility] Address: [address] [place] [address] Performed By: #### 5 7021-8 ####[facility]ORATORYCLIA [id number] [address] Eosinophils/100 WBC (Bld) 0.1 % Normal [facility] Comment on above: Order Comment: Speci men Type: BLOOD SPECIMENOrdering Facility: [facility] Address: [address] [place] [address] Performed By: #### 5 7021-8 ####[facility]ORATORYCLIA [id number] [address] [place] Erythrocyte distribution width (RBC) [Ratio] 13.5 % Normal 11.5-15.0 [facility] Comment on above: Order Comment: Speci men Type: BLOOD SPECIMENOrdering Facility: [facility] Address: [address] [place] [address] Performed By: #### 5 7021-8 ####[facility]ORATORYCLIA [id number] [address] OF CED Hematocrit (Bld) [Volume fraction] 38.6 % Normal 36.0-46.0 [facility] Comment on above: Order Comment: Speci men Type: BLOOD SPECIMENOrdering Facility: [facility] Address: [address] [place] [address] Performed By: #### 5 7021-8 ####[facility]ORATORYCLIA [id number] [address] [place] Hemoglobin (Bld) [Mass/Vol] 12.6 g/dL Normal 11.5-15.5 [facility] Comment on above: Order Comment: Speci men Type: BLOOD SPECIMENOrdering Facility: [facility] Address: [address] [place] [address] Performed By: #### 5 7021-8 ####[facility]ORATORYCLIA [id number] [address] OF CED Immature granulocytes (Bld) [#/Vol] 0.07 10*3/uL Normal <0.10 [facility] Comment on above: Order Comment: Speci men Type: BLOOD SPECIMENOrdering Facility: [facility] Address: [address] [place] [address] Performed By: #### 5 7021-8 ####[facility]ORATORYCLIA [id number] [address] Immature granulocytes/100 WBC (Bld) 0.7 % Normal [facility] Comment on above: Order Comment: Speci men Type: BLOOD SPECIMENOrdering Facility: [facility] Address: [address] [place] [address] Performed By: #### 5 7021-8 ####[facility]ORATORYCLIA [id number] [address] OF [place]ED Lymphocytes (Bld) [#/Vol] 1.36 10*3/uL Normal 1.00-4.00 [facility] Comment on above: Order Comment: Speci men Type: BLOOD SPECIMENOrdering Facility: [facility] Address: [address] [place] [address] Performed By: #### 5 7021-8 ####[facility]ORATORYCLIA [id number] [address] Lymphocytes/100 WBC (Bld) 14.4 % Normal [facility] Comment on above: Order Comment: Speci men Type: BLOOD SPECIMENOrdering Facility: [facility] Address: [address] [place] [address] Performed By: #### 5 7021-8 ####[facility]ORATORYCLIA [id number] [address] [place] [facility] MCH (RBC) [Entitic mass] 30.5 pg Normal 26.0-34.0 [facility] Comment on above: Order Comment: Speci men Type: BLOOD SPECIMENOrdering Facility: [facility] Address: [address] [place] [address] Performed By: #### 5 7021-8 ####[facility]ORATORYCLIA [id number] [address] MCHC (RBC) [Mass/Vol] 32.6 g/dL Normal 30.5-36.0 [facility] Comment on above: Order Comment: Speci men Type: BLOOD SPECIMENOrdering Facility: [facility] Address: [address] [place] [address] Performed By: #### 5 7021-8 ####[facility]ORATORYCLIA [id number] [address] MCV (RBC) [Entitic vol] 93.5 fL Normal 80.0-100.0 [facility] Comment on above: Order Comment: Speci men Type: BLOOD SPECIMENOrdering Facility: [facility] Address: [address] [place] [address] Performed By: #### 5 7021-8 ####[facility]ORATORYCLIA [id number] [place] [address] [place] Monocytes (Bld) [#/Vol] 0.62 10*3/uL Normal <0.87 [facility] Comment on above: Order Comment: Speci men Type: BLOOD SPECIMENOrdering Facility: [facility] Address: [address] [place] [address] Performed By: #### 5 7021-8 ####[facility]ORATORYCLIA [id number] [place] [address] [place] Monocytes/100 WBC (Bld) 6.6 % Normal [facility] Comment on above: Order Comment: Speci men Type: BLOOD SPECIMENOrdering Facility: [facility] Address: [address] [place] [address] Performed By: #### 5 7021-8 ####[facility]ORATORYCLIA [id number] [place] [address] [place] Neutrophils (Bld) [#/Vol] 7.38 10*3/uL Normal 1.45-7.50 [facility] Comment on above: Order Comment: Speci men Type: BLOOD SPECIMENOrdering Facility: [facility] Address: [address] [place] [address] Performed By: #### 5 7021-8 ####[facility]ORATORYCLIA [id number] [place] [address] [place] Neutrophils/100 WBC (Bld) 78.2 % Normal [facility] Comment on above: Order Comment: Speci men Type: BLOOD SPECIMENOrdering Facility: [facility] Address: [address] [place] [address] Performed By: #### 5 7021-8 ####[facility]ORATORYCLIA [id number] [place] [address] [place] Nucleated RBC (Bld) [#/Vol] 10*3/uL Normal <0.01 [facility] Comment on above: Order Comment: Speci men Type: BLOOD SPECIMENOrdering Facility: [facility] Address: [address] [place] [address] Performed By: #### 5 7021-8 ####[facility]ORATORYCLIA [id number] [place] [address] [place] Nucleated RBC/100 WBC (Bld) [Ratio] 0.0 /100 WBC Normal [facility] Comment on above: Order Comment: Speci men Type: BLOOD SPECIMENOrdering Facility: [facility] Address: [address] [place] [address] Performed By: #### 5 7021-8 ####[facility]ORATORYCLIA [id number] [place] [address] [place] Platelet mean volume (Bld) [Entitic vol] 9.9 fL Normal 9.0-12.7 [facility] Comment on above: Order Comment: Speci men Type: BLOOD SPECIMENOrdering Facility: [facility] Address: [address] [place] [address] Performed By: #### 5 7021-8 ####[facility]ORATORYCLIA [id number] [place] [address] [place] Platelets (Bld) [#/Vol] 239 10*3/uL Normal 150-400 [facility] Comment on above: Order Comment: Speci men Type: BLOOD SPECIMENOrdering Facility: [facility] Address: [address] [place] [address] Performed By: #### 5 7021-8 ####[facility]ORATORYCLIA [id number] [place] [address] [place] RBC (Bld) [#/Vol] 4.13 10*6/uL Normal 3.90-5.20 [facility] Comment on above: Order Comment: Speci men Type: BLOOD SPECIMENOrdering Facility: [facility] Address: [address] [place] [address] Performed By: #### 5 7021-8 ####[facility]ORATORYCLIA [id number] [place] [address] [place] WBC (Bld) [#/Vol] 9.44 10*3/uL Normal 3.70-11.00 [facility] Comment on above: Order Comment: Speci men Type: BLOOD SPECIMENOrdering Facility: [facility] Address: [address] [place] [address] Performed By: #### 5 7021-8 ####[facility] LABORATORYCLIA [id number] [place] [address] [facility] CNDSon 12-10-2024 CNDS HNO ID: [id number] Author: SHAW KINSEY MD Service: Hospital Medicine [...] at bedside, (more content not included)... Normal [facility] CONSULT PROGon 12-10-2024 CONSULT PROG HNO ID: [id number] Author: GREG AGEE JR, MD Service: Neurology General Author Type: Physician Type: Consult Progress Note Filed: 12/10/2024 18:32 Note Text: TELENEUROLOGY CONSULT PROGRESS NOTE The Teleneurologist or RONNIE is available from 8 am to 5 pm on weekdays. On weekends, at [facility], the Teleneurologist or RONNIE is available from 8 am to 5 pm, [facility] 8 am to 12 pm, [facility] 1 pm to 5 pm, [facility] 8 am to 12 pm, [facility] 1 pm to 5 pm. Statutory holidays do not have teleneuro coverage. [facility]: During Off hours for Teleneurology please page (not call) [facility] [phone] extension work director for concerns. [facility] [facility]: During Off hours for Teleneurology please page (not call) [place] [facility] [phone] extension work director for concerns. [facility]: There is no off-hours coverage for Teleneurology. [...] date. Examination was completed by Teleneurology video (teleCaliopa system) assisted by Teleneurology (more content not included)... Normal [facility] Magnesium SerPl-mCncon 12-10 Magnesium [Mass/Vol] 2.2 mg/dL Normal 1.7-2.3 [facility] Comment on above: Order Comment: Speci men Type: BLOOD SPECIMENOrdering Facility: [facility] Address: [facility] [place] [id number] Performed By: #### 1 9123-9 ####[facility] LABORATORYCLIA [id number] [place] [address] [facility] ALLIED HEALTHon 12-09-2024 ALLIED HEALTH HNO ID: [id number] Author: LILIAN SHAW CT Service: Radiology Author [...] PATIENT PRESENTS WITH AN IMPLANTABLE OR ATTACHED OIL FILTERS INSPECTOR: No RADIOLOGY DEPARTMENT: MR; Exam(s) Completed: Head: Sagittal Sinus MRV. Aromatherapy Administered: No PERIPHERAL IV DATA: Not applicable SIGNED BY: PAULA PATTERSON MAINFRAME PROGRAMMER December 09, 2024 2:18 PM [facility] ANES PRE-OPon 12-09-2024 ANES PRE-OP HNO ID: [id number] Author: REED COON MD Service: Anesthesiology Author [...] and consent discussed: yes. Patient / Responsible Constitution Party agrees to proceed: yes Patient / Surrogate [...] December 09, 2024 TIME: 2:35 PM CSN: [id number] [facility] BRIEF OP NOTon 12-09-2024 BRIEF OP NOT HNO ID: [id number] Author: TORRIE CHOI MD Service: General Surgery Author Type: Physician Type: Brief Op Note Filed: 12/09/2024 16:05 Note Text: BRIEF OPERATIVE / PROCEDURE NOTE LOG ID: [id number] SURGERY/PROCEDURE DATE: 12/09/2024 INCISION/PROCEDURE START TIME: 3:16 PM INCISION CLOSE/PROCEDURE END TIME: 3:48 PM SURGEON(S)/PROCEDURA LIST(S) AND DECKHAND(S): Surgeons and Role: * Torrie Choi MD - Primary Physician [employer] Re[employer] Machine Operator: No Diaz PA-C SURGERY/PROCEDURE(S) : Right temporal artery biopsy ANESTHESIA: Monitored Anesthesia Care FINDINGS: see report ESTIMATED BLOOD LOSS: 20 ml SPECIMENS: 1 COMPLICATIONS: None CLOSURE TECHNIQUE: Primary PRE-OP/PRE-PROCEDURE DIAGNOSIS: headache POST-OP/POST-PROCEDU RE DIAGNOSIS: Same as Preop # [id number] SIGNATURE: Torrie Choi MD PATIENT NAME: Madiha Perales DATE: December 09, 2024 TIME: 4:01 PM [facility] MRV BRAIN WO IVCONon 025 MRV BRAIN WO IVCON * * *Final Report* * * DATE OF EXAM: Dec 09 2024 2:29PM [facility] 0335 - MRV BRAIN WO IVCON / PROCEDURE REASON: Headache, uncomplicated (Ped 0-18y) * * * * Physician Interpretation * * * * EXAMINATION: MRV BRAIN WO IVCON CLINICAL HISTORY: Headache TECHNIQUE: 3D [id number] MRV with post-processing performed at the modality [...] significant focal narrowing or intraluminal filling defects. General Internist: PSCB Transcribe Date/Time: Dec 09 2024 2:38P Dictated by : CELI HADDAD MD This examination was interpreted and the report reviewed and electronically signed by: CELI HADDAD MD on Dec 09 2024 2:45PM EST [id number] Normal [facility] OPERATIVE NOon 12-09-2024 OPERATIVE NO HNO ID: [id number] Author: TORRIE CHOI MD Service: General Surgery Author Type: Physician Type: Operative Report Filed: 12/09/2024 16:44 Note Text: [facility] - Operative Report MADIHA PERALES : 1945 AGE: 79. SEX: F PATIENT TYPE: I HOSP SVC: Medical LOCATION: [facility] ATTENDING PHYSICIAN: SHAW KINSEY CSN NUMBER: [id number] DATE OF SURGERY/PROCEDURE: 12/09/2024 INCISION/PROCEDURE START TIME: 3:16 p.m. INCISION CLOSE/PROCEDURE END TIME: 3:48 p.m. PREOPERATIVE DIAGNOSIS: Headaches. POSTOPERATIVE DIAGNOSIS: Headaches. SURGEON: Torrie Choi M.D. DECKHAND: SREEDHAR Nathan. SURGERY/PROCEDURE: Right temporal artery biopsy. [...] qualified residents or follow staff available. The library technical assistant's tasks including retraction, hemostasis, and assistance [...] room in good condition. Torrie Choi M.D. JANE:[id number] /[id number] [facility] [facility] THERAPY NTon 12-09-2024 THERAPY NT HNO ID: [id number] Author: LOBITO CAVAZOS PT Service: Physical Therapy Author Type: Physical Therapist Type: Therapy (PT/OT/Speech/Resp) Filed: 12/09/2024 13:48 Note Text: Summary: PT treatment Physical Therapy Treatment Summary SERVICE DATE: 12/09/2024 SERVICE TIME: 1140 to 1219 ROOM: [id number]- PT 6 Clicks Score: 13 DISCHARGE RECOMMENDATIONS [...] toilet. Spouse assists with toilet transfer at [facility], spouse completes hygiene, some incontinent epsidoes Pt [...] DIAGNOSIS Reduced (more content not included)... Normal [facility] HEALTHon 12-08-2024 ALLIED HEALTH HNO ID: [id number] Author: LILIAN SHAW CT Service: Radiology Author [...] PATIENT PRESENTS WITH AN IMPLANTABLE OR ATTACHED OIL FILTERS INSPECTOR: No RADIOLOGY DEPARTMENT: MR; Exam(s) Completed: Head: [place] MRA. Lavender Administered: No PERIPHERAL IV DATA: Not applicable SIGNED BY: RICHARD Viramontes December 08, 2024 9:16 AM Normal [facility] Basic metabolic 2000 panelon 12-08-2024 Anion gap [Moles/Vol] 9 mmol/L Normal 8-15 [facility] Comment on above: Order Comment: Speci men Type: BLOOD SPECIMENOrdering Facility: [facility] Address: [address] [place] [address] Performed By: #### 1 9123-9, 76181-5 ####[facility]ORATORYCLIA [id number] [place] [address] [place] Calcium [Mass/Vol] 8.9 mg/dL Normal 8.5-10.2 [facility] Comment on above: Order Comment: Nehemiahi tai Type: BLOOD SPECIMENOrdering Facility: [facility] Address: [address] [place] [address] Performed By: #### 1 9123-9, 55650-7 ####[facility]ORATORYCLIA [id number] [place] [address] [place] Chloride [Moles/Vol] 104 mmol/L Normal 98-107 [facility] Comment on above: Order Comment: Nehemiahi men Type: BLOOD SPECIMENOrdering Facility: [facility] Address: [address] [place] [address] Performed By: #### 1 9123-9, 18330-1 ####[facility]ORATORYCLIA [id number] [place] [address] [place] CO2 [Moles/Vol] 27 mmol/L Normal 22-30 [facility] Comment on above: Order Comment: Nehemiahi men Type: BLOOD SPECIMENOrdering Facility: [facility] Address: [address] [place] [address] Performed By: #### 1 9123-9, 93540-1 ####[facility]ATORYCLIA [id number] [place] [address] [place] Creatinine [Mass/Vol] 0.51 mg/dL Low 0.58-0.96 [facility] Comment on above: Order Comment: Yoav lujan Type: BLOOD SPECIMENOrdering Facility: [facility] Address: [address] [place] [address] Performed By: #### 1 9123-9, 52728-6 ####[facility] LABORATORYCLIA [id number] [place] [address] [place] Creatinine and Glomerular filtration rate.predicted panel (S/P/Bld) 96 mL/min/1.73m??? Normal >=60 [facility] Comment on above: Order Comment: Yoav lujan Type: BLOOD SPECIMENOrdering Facility: [facility] Address: [address] [place] [address] Result Comment: Mateo mated Glomerular Filtration Rate [...] actual GFR. Performed By: #### 1 9123-9, 21520-6 ####[facility] LABORATORYCLIA [id number] [place] [id number] [place] Glucose [Mass/Vol] 134 mg/dL High 74-99 [facility] Comment on above: Order Comment: Yoav tai Type: BLOOD SPECIMENOrdering Facility: [facility] Address: [address] [place] [address] Result Comment: The [place] Diabetes Association (ADA) provides guidance for cutoff [...] Standards of Medical Care in Diabetes 2016, [place] [employer]. Diabetes Care. 2016.39(Suppl 1). Performed By: #### 1 9123-9, 65066-7 ####[facility] LABORATORYCLIA [id number] [place] [address] [place] Potassium [Moles/Vol] 4.7 mmol/L Normal 3.7-5.1 [facility] Comment on above: Order Comment: Speci men Type: BLOOD SPECIMENOrdering Facility: [facility] Address: [address] [place] [address] Performed By: #### 1 9123-9, 03754-3 ####[facility]ORATORYCLIA [id number] [place] [address] [place] Sodium [Moles/Vol] 140 mmol/L Normal 136-144 [facility] Comment on above: Order Comment: Speci men Type: BLOOD SPECIMENOrdering Facility: [facility] Address: [address] [place] [address] Performed By: #### 1 9123-9, 46385-9 ####[facility]ORATORYCLIA [id number] [place] [address] [place] Urea nitrogen [Mass/Vol] 15 mg/dL Normal 7-21 [facility] Comment on above: Order Comment: Speci men Type: BLOOD SPECIMENOrdering Facility: [facility] Address: [address] [place] [address] Performed By: #### 1 9123-9, 44965-4 ####[facility]ORATORYCLIA [id number] [place] [address] [place] CBC W Auto Differential pane l (Bld)on 12-08-2024 Basophils (Bld) [#/Vol] 10*3/uL Normal <0.11 [facility] Comment on above: Order Comment: Speci men Type: BLOOD SPECIMENOrdering Facility: [facility] Address: [address] [place] [address] Performed By: #### 5 7021-8 ####[facility] LABORATORYCLIA [id number] [address] [facility] Basophils/100 WBC (Bld) 0.1 % Normal [facility] Comment on above: Order Comment: Speci men Type: BLOOD SPECIMENOrdering Facility: [facility] Address: [address] [place] [address] Performed By: #### 5 7021-8 ####[facility] LABORATORYCLIA [id number] [place] [address] [place] Differential cell count method Nom (Bld) Auto Normal [facility] Comment on above: Order Comment: Speci men Type: BLOOD SPECIMENOrdering Facility: [facility] Address: [address] [place] [address] Performed By: #### 5 7021-8 ####[facility]ORATORYCLIA [id number] [place] [address] [place] Eosinophils (Bld) [#/Vol] 10*3/uL Normal <0.46 [facility] Comment on above: Order Comment: Speci men Type: BLOOD SPECIMENOrdering Facility: [facility] Address: [address] [place] [address] Performed By: #### 5 7021-8 ####[facility]ORATORYCLIA [id number] [place] [address] [place] Eosinophils/100 WBC (Bld) 0.0 % Normal [facility] Comment on above: Order Comment: Speci men Type: BLOOD SPECIMENOrdering Facility: [facility] Address: [address] [place] [address] Performed By: #### 5 7021-8 ####[facility]ORATORYCLIA [id number] [place] [address] [place] Erythrocyte distribution width (RBC) [Ratio] 13.3 % Normal 11.5-15.0 [facility] Comment on above: Order Comment: Speci men Type: BLOOD SPECIMENOrdering Facility: [facility] Address: [address] [place] [address] Performed By: #### 5 7021-8 ####[facility]ORATORYCLIA [id number] [place] [address] [place] Hematocrit (Bld) [Volume fraction] 40.2 % Normal 36.0-46.0 [facility] Comment on above: Order Comment: Speci men Type: BLOOD SPECIMENOrdering Facility: [facility] Address: [address] [place] [address] Performed By: #### 5 7021-8 ####[facility]ORATORYCLIA [id number] [place] [address] [place] Hemoglobin (Bld) [Mass/Vol] 13.2 g/dL Normal 11.5-15.5 [facility] Comment on above: Order Comment: Speci men Type: BLOOD SPECIMENOrdering Facility: [facility] Address: [address] [place] [address] Performed By: #### 5 7021-8 ####[facility]ORATORYCLIA [id number] [place] [address] [place] Immature granulocytes (Bld) [#/Vol] 0.07 10*3/uL Normal <0.10 [facility] Comment on above: Order Comment: Speci men Type: BLOOD SPECIMENOrdering Facility: [facility] Address: [address] [place] [address] Performed By: #### 5 7021-8 ####[facility]ORATORYCLIA [id number] [place] [address] [place] Immature granulocytes/100 WBC (Bld) 0.7 % Normal [facility] Comment on above: Order Comment: Speci men Type: BLOOD SPECIMENOrdering Facility: [facility] Address: [address] [place] [address] Performed By: #### 5 7021-8 ####[facility]ORATORYCLIA [id number] [place] [address] [place] Lymphocytes (Bld) [#/Vol] 0.71 10*3/uL Low 1.00-4.00 [facility] Comment on above: Order Comment: Speci men Type: BLOOD SPECIMENOrdering Facility: [facility] Address: [address] [place] [address] Performed By: #### 5 7021-8 ####[facility]ORATORYCLIA [id number] [place] [address] [place] Lymphocytes/100 WBC (Bld) 6.7 % Normal [facility] Comment on above: Order Comment: Speci men Type: BLOOD SPECIMENOrdering Facility: [facility] Address: [address] [place] [address] Performed By: #### 5 7021-8 ####[facility]ORATORYCLIA [id number] [address] [facility] MCH (RBC) [Entitic mass] 30.7 pg Normal 26.0-34.0 [facility] Comment on above: Order Comment: Speci men Type: BLOOD SPECIMENOrdering Facility: [facility] Address: [address] [place] [address] Performed By: #### 5 7021-8 ####[facility]ORATORYCLIA [id number] [address] STATES OF CED MCHC (RBC) [Mass/Vol] 32.8 g/dL Normal 30.5-36.0 [facility] Comment on above: Order Comment: Speci men Type: BLOOD SPECIMENOrdering Facility: [facility] Address: [address] [place] [address] Performed By: #### 5 7021-8 ####[facility]ORATORYCLIA [id number] [address] [facility] MCV (RBC) [Entitic vol] 93.5 fL Normal 80.0-100.0 [facility] Comment on above: Order Comment: Speci men Type: BLOOD SPECIMENOrdering Facility: [facility] Address: [address] [place] [address] Performed By: #### 5 7021-8 ####[facility]ORATORYCLIA [id number] [address] OF CED Monocytes (Bld) [#/Vol] 0.34 10*3/uL Normal <0.87 [facility] Comment on above: Order Comment: Speci men Type: BLOOD SPECIMENOrdering Facility: [facility] Address: [address] [place] [address] Performed By: #### 5 7021-8 ####[facility] LABORATORYCLIA [id number] [address] Monocytes/100 WBC (Bld) 3.2 % Normal [facility] Comment on above: Order Comment: Speci men Type: BLOOD SPECIMENOrdering Facility: [facility] Address: [address] [place] [address] Performed By: #### 5 7021-8 ####[facility]ORATORYCLIA [id number] [place] [address] [place] Neutrophils (Bld) [#/Vol] 9.45 10*3/uL High 1.45-7.50 [facility] Comment on above: Order Comment: Speci men Type: BLOOD SPECIMENOrdering Facility: [facility] Address: [address] [place] [address] Performed By: #### 5 7021-8 ####[facility]ORATORYCLIA [id number] [address] OF CED Neutrophils/100 WBC (Bld) 89.3 % Normal [facility] Comment on above: Order Comment: Speci men Type: BLOOD SPECIMENOrdering Facility: [facility] Address: [address] [place] [address] Performed By: #### 5 7021-8 ####[facility]ORATORYCLIA [id number] [place] [address] [place] Nucleated RBC (Bld) [#/Vol] 10*3/uL Normal <0.01 [facility] Comment on above: Order Comment: Speci men Type: BLOOD SPECIMENOrdering Facility: [facility] Address: [address] [place] [address] Performed By: #### 5 7021-8 ####[facility]ORATORYCLIA [id number] [place] [address] [place] Nucleated RBC/100 WBC (Bld) [Ratio] 0.0 /100 WBC Normal [facility] Comment on above: Order Comment: Speci men Type: BLOOD SPECIMENOrdering Facility: [facility] Address: [address] [place] [address] Performed By: #### 5 7021-8 ####[facility]ORATORYCLIA [id number] [place] [address] [place] Platelet mean volume (Bld) [Entitic vol] 10.3 fL Normal 9.0-12.7 [facility] Comment on above: Order Comment: Speci men Type: BLOOD SPECIMENOrdering Facility: [facility] Address: [address] [place] [address] Performed By: #### 5 7021-8 ####[facility]ORYCLIA [id number] [address] OF CED Platelets (Bld) [#/Vol] 207 10*3/uL Normal 150-400 [facility] Comment on above: Order Comment: Speci men Type: BLOOD SPECIMENOrdering Facility: [facility] Address: [address] [place] [address] Performed By: #### 5 7021-8 ####[facility]ORYCLIA [id number] [address] OF CED RBC (Bld) [#/Vol] 4.30 10*6/uL Normal 3.90-5.20 [facility] Comment on above: Order Comment: Speci men Type: BLOOD SPECIMENOrdering Facility: [facility] Address: [address] [place] [address] Performed By: #### 5 7021-8 ####[facility]ORYCLIA [id number] [address] OF CED WBC (Bld) [#/Vol] 10.58 10*3/uL Normal 3.70-11.00 [facility] Comment on above: Order Comment: Speci men Type: BLOOD SPECIMENOrdering Facility: [facility] Address: [address] [place] [address] Performed By: #### 5 7021-8 ####[facility]ATORYCLIA [id number] [address] CONSULT PROGon 12-08-2024 CONSULT PROG HNO ID: [id number] Author: GREG AGEE JR, MD Service: Neurology [...] hours for Teleneurology please page (not call) [facility] [phone] extension work director for concerns. [place]: During Off hours for Teleneurology please page (not call) [facility] [phone] extension work director for concerns. [facility]: There is no off-hours coverage for Teleneurology. [...] PM me (more content not included)... Normal [facility] MRA BRAIN WO IVCONon 025 MRA BRAIN WO IVCON * * *Final Report* * * DATE OF EXAM: Dec 08 2024 9:30AM [facility] 0272 - MRA BRAIN WO IVCON / PROCEDURE REASON: Headache, new or worsening (Age >= 50y) * * * * Physician Interpretation * * * * EXAMINATION: MRA BRAIN WO IVCON CLINICAL HISTORY: Headache, new or worsening. TECHNIQUE: Routine noncontrast MRI brain protocol including diffusion and gradient echo images. Intracranial 3D hwtf-pe-ghslbo MRA with post-processing performed at the modality [...] territory infarct is partially included within the ukkyy-jg-zowd on the individual partitions. INTRACRANIAL MRA: Distal [...] or aneurysm. IMPRESSION: Patent intracranial arterial vasculature. General Internist: PSCB Transcribe Date/Time: Dec 08 2024 10:06A Dictated by : SHANT SUÁREZ MD This examination was interpreted and the report reviewed and electronically signed by: SHANT SUÁREZ MD on Dec 08 2024 10:11AM EST [id number] Normal [facility] Magnesium SerPl-mCncon 12-08 Magnesium [Mass/Vol] 2.1 mg/dL Normal 1.7-2.3 [facility] Comment on above: Order Comment: Speci men Type: BLOOD SPECIMENOrdering Facility: 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 Address: [address] [place] [address] Performed By: #### 2 4320-2, ####[facility]ATORYCLIA [id number] [place] [address] [place] [facility] Calcium [Mass/Vol] 8.5 mg/dL Normal 8.5-10.2 [facility] Comment on above: Order Comment: Yoav lujan Type: BLOOD SPECIMENOrdering Facility: [facility] Address: [address] [place] [address] Performed By: #### 2 432-2, ####[facility]ATORYCLIA [id number] [place] [id number] [place] Chloride [Moles/Vol] 104 mmol/L Normal 98-107 [facility] Comment on above: Order Comment: Yoav lujan Type: BLOOD SPECIMENOrdering Facility: [facility] Address: [address] [place] [address] Performed By: #### 2 4321-2, ####[facility] LABORATORYCLIA [id number] [place] [address] [place] CO2 [Moles/Vol] 29 mmol/L Normal 22-30 [facility] Comment on above: Order Comment: Speci men Type: BLOOD SPECIMENOrdering Facility: [facility] Address: [address] [place] [address] Performed By: #### 2 432-2, ####[facility] LABORATORYCLIA [id number] [address] STATES OF CED Creatinine [Mass/Vol] 0.63 mg/dL Normal 0.58-0.96 [facility] Comment on above: Order Comment: Speci men Type: BLOOD SPECIMENOrdering Facility: [facility] Address: [address] [place] [address] Performed By: #### 2 4322, ####[facility] LABORATORYCLIA [id number] [address] Creatinine and Glomerular filtration rate.predicted panel (S/P/Bld) 91 mL/min/1.73m??? Normal >=60 [facility] Comment on above: Order Comment: Speci men Type: BLOOD SPECIMENOrdering Facility: [facility] Address: [address] [place] [address] Result Comment: Mateo mated Glomerular Filtration Rate [...] Performed By: #### 2 432-2, ####[facility] LABORATORYCLIA [id number] [address] STATES OF [facility] Glucose [Mass/Vol] 92 mg/dL Normal 74-99 [facility] Comment on above: Order Comment: Speci men Type: BLOOD SPECIMENOrdering Facility: [facility] Address: [address] [place] [address] Result Comment: The [place] Diabetes Association (ADA) provides guidance for cutoff [...] Standards of Medical Care in Diabetes 2016, [place] [employer]. Diabetes Care. 2016.39(Suppl 1). Performed By: #### 2 4320-07, ####[facility] LABORATORYCLIA [id number] [place] [address] [place] Potassium [Moles/Vol] 4.0 mmol/L Normal 3.7-5.1 [facility] Comment on above: Order Comment: Yoav lujan Type: BLOOD SPECIMENOrdering Facility: [facility] Address: [address] [place] [address] Performed By: #### 2 4320-07, ####[facility] LABORATORYCLIA [id number] [place] [address] [place] Sodium [Moles/Vol] 141 mmol/L Normal 136-144 [facility] Comment on above: Order Comment: Yoav lujan Type: BLOOD SPECIMENOrdering Facility: [facility] Address: [address] [place] [address] Performed By: #### 2 4320-07, ####[facility] LABORATORYCLIA [id number] [place] [address] [place] Urea nitrogen [Mass/Vol] 14 mg/dL Normal 7-21 [facility] Comment on above: Order Comment: Yoav lujan Type: BLOOD SPECIMENOrdering Facility: [facility] Address: [address] [place] [address] Performed By: #### 2 4320-07, ####[facility] LABORATORYCLIA [id number] [address] CBC panel Auto (Bld)on 12-07 Erythrocyte distribution width (RBC) [Ratio] 13.9 % Normal 11.5-15.0 [facility] Comment on above: Order Comment: Speci men Type: BLOOD SPECIMENOrdering Facility: [facility] Address: [address] [place] [address] Performed By: #### 5 8410-2 ####[facility] LABORATORYCLIA [id number] [address] Hematocrit (Bld) [Volume fraction] 39.9 % Normal 36.0-46.0 [facility] Comment on above: Order Comment: Speci men Type: BLOOD SPECIMENOrdering Facility: [facility] Address: [address] [place] [address] Performed By: #### 5 8410-2 ####[facility] LABORATORYCLIA [id number] [address] Hemoglobin (Bld) [Mass/Vol] 13.0 g/dL Normal 11.5-15.5 [facility] Comment on above: Order Comment: Speci men Type: BLOOD SPECIMENOrdering Facility: [facility] Address: [address] [place] [address] Performed By: #### 5 8410-2 ####[facility] LABORATORYCLIA [id number] [address] MCH (RBC) [Entitic mass] 31.0 pg Normal 26.0-34.0 [facility] Comment on above: Order Comment: Speci men Type: BLOOD SPECIMENOrdering Facility: [facility] Address: [address] [place] [address] Performed By: #### 5 8410-2 ####[facility] LABORATORYCLIA [id number] [address] MCHC (RBC) [Mass/Vol] 32.6 g/dL Normal 30.5-36.0 [facility] Comment on above: Order Comment: Speci men Type: BLOOD SPECIMENOrdering Facility: [facility] Address: [address] [place] [address] Performed By: #### 5 8410-2 ####[facility] LABORATORYCLIA [id number] [place] [address] [place] MCV (RBC) [Entitic vol] 95.0 fL Normal 80.0-100.0 [facility] Comment on above: Order Comment: Speci men Type: BLOOD SPECIMENOrdering Facility: [facility] Address: [address] [place] [address] Performed By: #### 5 8410-2 ####[facility] LABORATORYCLIA [id number] [place] [address] [place] Nucleated RBC (Bld) [#/Vol] 10*3/uL Normal <0.01 [facility] Comment on above: Order Comment: Speci men Type: BLOOD SPECIMENOrdering Facility: [facility] Address: [address] [place] [address] Performed By: #### 5 8410-2 ####[facility] LABORATORYCLIA [id number] [address] [place] OF CED Platelet mean volume (Bld) [Entitic vol] 9.8 fL Normal 9.0-12.7 [facility] Comment on above: Order Comment: Speci men Type: BLOOD SPECIMENOrdering Facility: [facility] Address: [address] [place] [address] Performed By: #### 5 8410-2 ####[facility] LABORATORYCLIA [id number] [address] OF CED Platelets (Bld) [#/Vol] 171 10*3/uL Normal 150-400 [facility] Comment on above: Order Comment: Speci men Type: BLOOD SPECIMENOrdering Facility: [facility] Address: [address] [place] [address] Performed By: #### 5 8410-2 ####[facility] LABORATORYCLIA [id number] [place] [address] [facility] OF CED RBC (Bld) [#/Vol] 4.20 10*6/uL Normal 3.90-5.20 [facility] Comment on above: Order Comment: Speci men Type: BLOOD SPECIMENOrdering Facility: [facility] Address: [address] [place] [address] Performed By: #### 5 8410-2 ####[facility]ORYCLIA [id number] [place] [id number] [facility] WBC (Bld) [#/Vol] 10.27 10*3/uL Normal 3.70-11.00 [facility] Comment on above: Order Comment: Speci men Type: BLOOD SPECIMENOrdering Facility: [facility] Address: [address] [place] [address] Performed By: #### 5 8410-2 ####[facility]ORYCLIA [id number] [place] [address] [facility] CONSULTon 12-07-2024 CONSULT HNO ID: [id number] Author: KELTON TAYLOR DO Service: General Surgery [...] 6 hours (more content not included)... Normal [facility] CT BRAIN WO IVCONon 12-08-19 CT BRAIN WO IVCON * * *Final Report* * * DATE OF EXAM: Dec 07 2024 12:11PM [facility] [place] [place]CON / [...] change. No intracranial mass effect or hemorrhage. General Internist: JARVIS Transcribe Date/Time: Dec 07 2024 12:40P Dictated by : SADAF KAUR MD This examination was interpreted and the report reviewed and electronically signed by: SADAF KAUR MD on Dec 07 2024 12:43PM EST [id number] CN Normal [facility] ESR Westergren method (Bld) [Velocity]on 12-07-2024 ESR (Bld) [Velocity] 45 mm/h High 0-20 [facility] Comment on above: Order Comment: Yoav lujan Type: BLOOD SPECIMENOrdering Facility: [facility] Address: [address] [place] [address] Performed By: #### 4 537-7 ####[facility] LABCLIA [id number] [address] [place] Magnesium SerPl-mCncon 12-07 Magnesium [Mass/Vol] 2.1 mg/dL Normal 1.7-2.3 [facility] Comment on above: Order Comment: Yoav lujan Type: BLOOD SPECIMENOrdering Facility: [facility] Address: [address] [place] [address] Performed By: #### 2 4321-2, 86528-4 ####[facility]ORATORYCLIA [id number] [place] [address] [place] THERAPY NTon 12-07-2024 THERAPY NT HNO ID: [id number] Author: LOBITO CAVAZOS PT Service: Physical Therapy Author Type: Physical Therapist Type: Therapy (PT/OT/Speech/Resp) Filed: 12/07/2024 11:41 Note Text: Summary: PT treatment/lprecert Physical Therapy Treatment Summary SERVICE DATE: 12/07/2024 SERVICE TIME: 1042 to 1117 ROOM: SU-3G-4004-2 PT 6 Clicks Score: 13 DISCHARGE RECOMMENDATIONS [...] toilet. Spouse assists with toilet transfer at [facility], spouse completes hygiene, some incontinent epsidoes Pt spends all day in lift chair when not at daycare and spouse helps her out. Spouse report (more content not included)... [facility] THERAPY NT HNO ID: [id number] Author: ORQUIDEA VELÁZQUEZ OT/West Service: Occupational Therapy Author Type: Occupational Therapist Type: Therapy (PT/OT/Speech/Resp) Filed: 12/07/2024 09:53 Note Text: Summary: OT Treatment Occupational Therapy Treatment Summary SERVICE DATE: 12/07/2024 SERVICE TIME: 924 ROOM: BE-3M-4997-2 OT 6 Clicks Score: 9 DISCHARGE RECOMMENDATIONS [...] toilet. Spouse assists with toilet transfer at [facility], spouse completes hygiene, some incontinent epsidoes Pt [...] Cognitive Functions and Awareness TREATMENT INTERVENTIONS Self Intermediate Manag (more content not included)... Normal [facility] Basic metabolic 2000 panelon 12-06-2024 Anion gap [Moles/Vol] 10 mmol/L Normal 8-15 [facility] Comment on above: Order Comment: Speci men Type: BLOOD SPECIMENOrdering Facility: [facility] Address: [address] [place], [place] [address] Performed By: #### 2 43206-24, ####[facility]ORATORYCLIA [id number] [place] [address] [place] Calcium [Mass/Vol] 8.7 mg/dL Normal 8.5-10.2 [facility] Comment on above: Order Comment: Speci men Type: BLOOD SPECIMENOrdering Facility: [facility] Address: [address] [place], [place] [address] Performed By: #### 2 4321-2, ####[facility]ORATORYCLIA [id number] [place] [id number] [place] Chloride [Moles/Vol] 103 mmol/L Normal 98-107 [facility] Comment on above: Order Comment: Speci men Type: BLOOD SPECIMENOrdering Facility: [facility] Address: [address] [place] [address] Performed By: #### 2 4321-2, ####[facility]ATORYCLIA [id number] [place] [address] [place] CO2 [Moles/Vol] 26 mmol/L Normal 22-30 [facility] Comment on above: Order Comment: Speci men Type: BLOOD SPECIMENOrdering Facility: [facility] Address: [address] [place] [address] Performed By: #### 2 4321-2, ####[facility]ATORYCLIA [id number] [address] Creatinine [Mass/Vol] 0.60 mg/dL Normal 0.58-0.96 [facility] Comment on above: Order Comment: Speci men Type: BLOOD SPECIMENOrdering Facility: [facility] Address: [address] [place] [address] Performed By: #### 2 2, ####[facility]ORATORYCLIA [id number] [address] Creatinine and Glomerular filtration rate.predicted panel (S/P/Bld) 92 mL/min/1.73m??? Normal >=60 [facility] Comment on above: Order Comment: Nehemiahi men Type: BLOOD SPECIMENOrdering Facility: [facility] Address: [address] [place] [address] Result Comment: Mateo mated Glomerular Filtration Rate [...] Performed By: #### 2 4321-2, ####[facility]ORATORYCLIA [id number] [place] [id number] [place] Glucose [Mass/Vol] 103 mg/dL High 74-99 [facility] Comment on above: Order Comment: Yoav lujan Type: BLOOD SPECIMENOrdering Facility: [facility] Address: [address] [place], [place] [address] Result Comment: The [place] Diabetes Association (ADA) provides guidance for cutoff [...] Standards of Medical Care in Diabetes 2016, [place] [employer]. Diabetes Care. 2016.39(Suppl 1). Performed By: #### 2 432-2, ####[facility]ATORYCLIA [id number] [place] [address] [place] Potassium [Moles/Vol] 4.0 mmol/L Normal 3.7-5.1 [facility] Comment on above: Order Comment: Yoav lujan Type: BLOOD SPECIMENOrdering Facility: [facility] Address: [address] [place], [place] [address] Performed By: #### 2 432-2, ####[facility]ATORYCLIA [id number] [place] [id number] [place] Sodium [Moles/Vol] 139 mmol/L Normal 136-144 [facility] Comment on above: Order Comment: Yoav lujan Type: BLOOD SPECIMENOrdering Facility: [facility] Address: [address] [place] [address] Performed By: #### 2 43206-24, ####[facility]ORATORYCLIA [id number] [place] [address] [place] Urea nitrogen [Mass/Vol] 13 mg/dL Normal 7-21 [facility] Comment on above: Order Comment: Nehemiahi men Type: BLOOD SPECIMENOrdering Facility: [facility] Address: [address] [place] [address] Performed By: #### 2 4321-2, 53192-1 ####[facility]ORATORYCLIA [id number] [address] CBC panel Auto (Bld)on 12-06 Erythrocyte distribution width (RBC) [Ratio] 13.8 % Normal 11.5-15.0 [facility] Comment on above: Order Comment: Speci men Type: BLOOD SPECIMENOrdering Facility: [facility] Address: [address] [place] [address] Performed By: #### 5 8410-2 ####[facility]ORATORYCLIA [id number] [address] Hematocrit (Bld) [Volume fraction] 40.6 % Normal 36.0-46.0 [facility] Comment on above: Order Comment: Speci men Type: BLOOD SPECIMENOrdering Facility: [facility] Address: [address] [place] [address] Performed By: #### 5 8410-2 ####[facility]ORATORYCLIA [id number] [address] Hemoglobin (Bld) [Mass/Vol] 13.5 g/dL Normal 11.5-15.5 [facility] Comment on above: Order Comment: Speci men Type: BLOOD SPECIMENOrdering Facility: [facility] Address: [address] [place] [address] Performed By: #### 5 8410-2 ####[facility]ORATORYCLIA [id number] [address] MCH (RBC) [Entitic mass] 31.1 pg Normal 26.0-34.0 [facility] Comment on above: Order Comment: Speci men Type: BLOOD SPECIMENOrdering Facility: [facility] Address: [address] [place] [address] Performed By: #### 5 8410-2 ####[facility]ORATORYCLIA [id number] [address] MCHC (RBC) [Mass/Vol] 33.3 g/dL Normal 30.5-36.0 [facility] Comment on above: Order Comment: Speci men Type: BLOOD SPECIMENOrdering Facility: [facility] Address: [facility] [place] [address] Performed By: #### 5 8410-2 ####[facility]ORATORYCLIA [id number] [place] [address] [place] MCV (RBC) [Entitic vol] 93.5 fL Normal 80.0-100.0 [facility] Comment on above: Order Comment: Speci men Type: BLOOD SPECIMENOrdering Facility: [facility] Address: [address] [place] [address] Performed By: #### 5 8410-2 ####[facility]ORATORYCLIA [id number] [address] [place] Nucleated RBC (Bld) [#/Vol] 10*3/uL Normal <0.01 [facility] Comment on above: Order Comment: Speci men Type: BLOOD SPECIMENOrdering Facility: [facility] Address: [address] [place] [address] Performed By: #### 5 8410-2 ####[facility]ORATORYCLIA [id number] [address] [place] Platelet mean volume (Bld) [Entitic vol] 9.9 fL Normal 9.0-12.7 [facility] Comment on above: Order Comment: Speci men Type: BLOOD SPECIMENOrdering Facility: [facility] Address: [address] [place] [address] Performed By: #### 5 8410-2 ####[facility]ORATORYCLIA [id number] [place] [address] [place] Platelets (Bld) [#/Vol] 183 10*3/uL Normal 150-400 [facility] Comment on above: Order Comment: Speci men Type: BLOOD SPECIMENOrdering Facility: [facility] Address: [address] [place] [address] Performed By: #### 5 8410-2 ####[facility]ORATORYCLIA [id number] [address] [facility] RBC (Bld) [#/Vol] 4.34 10*6/uL Normal 3.90-5.20 [facility] Comment on above: Order Comment: Speci men Type: BLOOD SPECIMENOrdering Facility: [facility] Address: [address] [place] [address] Performed By: #### 5 8410-2 ####[facility]ORATORYCLIA [id number] [address] WBC (Bld) [#/Vol] 11.94 10*3/uL High 3.70-11.00 [facility] Comment on above: Order Comment: Speci men Type: BLOOD SPECIMENOrdering Facility: [facility] Address: [address] [place] [address] Performed By: #### 5 8410-2 ####[facility]ORATORYCLIA [id number] [address] Magnesium SerPl-mCncon 12-06 Magnesium [Mass/Vol] 2.0 mg/dL Normal 1.7-2.3 [facility] Comment on above: Order Comment: Speci men Type: BLOOD SPECIMENOrdering Facility: [facility] Address: [address] [place] [address] Performed By: #### 2 4321-2, 04886-4 ####[facility]ORATORYCLIA [id number] [address] THERAPY NTon 12-06-2024 THERAPY NT HNO ID: [id number] Author: ORQUIDEA VELÁZQUEZ OT/West Service: Occupational Therapy Author Type: Occupational Therapist Type: Therapy (PT/OT/Speech/Resp) Filed: 12/06/2024 13:57 Note Text: OCCUPATIONAL THERAPY MISSED VISIT SERVICE DATE: 12/06/2024 SERVICE TIME: 1355 ROOM: [place] [address] Patient not seen due to Test / Procedure. EEG being complete at pt's bedside. Will re-attempt as schedule allows. CM notified as this pt has precert needs. SIGNATURE: Orquidea Velázquez OT/West PATIENT NAME: Madiha Perales DATE: December 06, 2024 TIME: 1:57 PM [facility] THERAPY NT HNO ID: [id number] Author: KATIE MACIEL CCC-SPIRITUAL ADVISOR Service: Speech/Swallow Author Type: Speech Language Pathologist Type: Therapy (PT/OT/Speech/Resp) Filed: 12/06/2024 12:41 Note Text: Summary: Dysphagia Therapy Speech Therapy Treatment SERVICE DATE: 12/06/2024 SERVICE TIME: 1209 to 1239 ROOM: [place] [address] IMPRESSION Swallow Deficits Identified / Suspected: Oral [...] Dysphagia, oral phase TREATMENT INTERVENTIONS Dysphagia Therapy (05134) Skilled Treatment Time (minutes): 30 TRAINING AND [...] Dysphagia Management, Caregiver Education SIGNATURE: Katie Martin [facility]-SPIRITUAL ADVISOR PATIENT NAME: P (more content not included)... Normal [facility] Basic metabolic 2000 panelon 12-05-2024 Anion gap [Moles/Vol] 10 mmol/L Normal 8-15 [facility] Comment on above: Order Comment: Speci men Type: BLOOD SPECIMENOrdering Facility: [facility] Address: [address] [place] [address] Performed By: #### 1 91239, 23811-2 ####[facility]ATORYCLIA [id number] [place] [address] [place] Calcium [Mass/Vol] 8.6 mg/dL Normal 8.5-10.2 [facility] Comment on above: Order Comment: Speci men Type: BLOOD SPECIMENOrdering Facility: [facility] Address: [address] [place] [address] Performed By: #### 1 91239, 94946-8 ####[facility]ATORYCLIA [id number] [place] [address] [place] Chloride [Moles/Vol] 102 mmol/L Normal 98-107 [facility] Comment on above: Order Comment: Speci men Type: BLOOD SPECIMENOrdering Facility: [facility] Address: [address] [place] [address] Performed By: #### 1 9123-9, 87299-0 ####[facility]ATORYCLIA [id number] [place] [address] [place] CO2 [Moles/Vol] 27 mmol/L Normal 22-30 [facility] Comment on above: Order Comment: Speci men Type: BLOOD SPECIMENOrdering Facility: [facility] Address: [address] [place] [address] Performed By: #### 1 9123-9, 19882-4 ####[facility]ATORYCLIA [id number] [place] [address] [place] Creatinine [Mass/Vol] 0.58 mg/dL Normal 0.58-0.96 [facility] Comment on above: Order Comment: Speci men Type: BLOOD SPECIMENOrdering Facility: [facility] Address: [address] [place] [address] Performed By: #### 1 9123-9, 43630-8 ####[facility]ORATORYCLIA [id number] [place] [address] [place] Creatinine and Glomerular filtration rate.predicted panel (S/P/Bld) 93 mL/min/1.73m??? Normal >=60 [facility] Comment on above: Order Comment: Yoav lujan Type: BLOOD SPECIMENOrdering Facility: [facility] Address: [address] [place] [address] Result Comment: Mateo mated Glomerular Filtration Rate [...] actual GFR. Performed By: #### 1 9123-9, 62722-4 ####[facility] LABORATORYCLIA [id number] [place] [address] [place] Glucose [Mass/Vol] 100 mg/dL High 74-99 [facility] Comment on above: Order Comment: Yoav lujan Type: BLOOD SPECIMENOrdering Facility: [facility] Address: [address] [place] [address] Result Comment: The [place] Diabetes Association (ADA) provides guidance for cutoff [...] Standards of Medical Care in Diabetes 2016, [place] [employer]. Diabetes Care. 2016.39(Suppl 1). Performed By: #### 1 9123-9, 62342-4 ####[facility] LABORATORYCLIA [id number] [place] [address] [place] Potassium [Moles/Vol] 4.2 mmol/L Normal 3.7-5.1 [facility] Comment on above: Order Comment: Speci men Type: BLOOD SPECIMENOrdering Facility: [facility] Address: [address] [place] [address] Performed By: #### 1 9123-9, 31281-0 ####[facility]ORATORYCLIA [id number] [address] STATES OF [facility] Sodium [Moles/Vol] 139 mmol/L Normal 136-144 [facility] Comment on above: Order Comment: Speci men Type: BLOOD SPECIMENOrdering Facility: [facility] Address: [address] [place] [address] Performed By: #### 1 9123-9, 25553-5 ####[facility] LABORATORYCLIA [id number] [address] [place] Urea nitrogen [Mass/Vol] 15 mg/dL Normal 7-21 [facility] Comment on above: Order Comment: Speci men Type: BLOOD SPECIMENOrdering Facility: [facility] Address: [address] [place] [address] Performed By: #### 1 9123-9, 00461-8 ####[facility]ORATORYCLIA [id number] [address] [place] CBC W Auto Differential pane l (Bld)on 12-05-2024 Basophils (Bld) [#/Vol] 0.04 10*3/uL Normal <0.11 [facility] Comment on above: Order Comment: Speci men Type: BLOOD SPECIMENOrdering Facility: [facility] Address: [address] [place] [address] Performed By: #### 5 7021-8 ####[facility] LABORATORYCLIA [id number] [address] Basophils/100 WBC (Bld) 0.4 % Normal [facility] Comment on above: Order Comment: Speci men Type: BLOOD SPECIMENOrdering Facility: [facility] Address: [address] [place] [address] Performed By: #### 5 7021-8 ####[facility] LABORATORYCLIA [id number] [place] [address] [place] [facility] C[place] Differential cell count method Nom (Bld) Auto Normal [facility] Comment on above: Order Comment: Speci men Type: BLOOD SPECIMENOrdering Facility: [facility] Address: [address] [place] [address] Performed By: #### 5 7021-8 ####[facility] LABORATORYCLIA [id number] [place] [address] [place] Eosinophils (Bld) [#/Vol] 0.13 10*3/uL Normal <0.46 [facility] Comment on above: Order Comment: Speci men Type: BLOOD SPECIMENOrdering Facility: [facility] Address: [address] [place] [address] Performed By: #### 5 7021-8 ####[facility] LABORATORYCLIA [id number] [place] [address] [place] Eosinophils/100 WBC (Bld) 1.3 % Normal [facility] Comment on above: Order Comment: Speci men Type: BLOOD SPECIMENOrdering Facility: [facility] Address: [address] [place] [address] Performed By: #### 5 7021-8 ####[facility] LABORATORYCLIA [id number] [address] [place] Erythrocyte distribution width (RBC) [Ratio] 13.9 % Normal 11.5-15.0 [facility] Comment on above: Order Comment: Speci men Type: BLOOD SPECIMENOrdering Facility: [facility] Address: [address] [place] [address] Performed By: #### 5 7021-8 ####[facility] LABORATORYCLIA [id number] [address] [place] Hematocrit (Bld) [Volume fraction] 41.5 % Normal 36.0-46.0 [facility] Comment on above: Order Comment: Speci men Type: BLOOD SPECIMENOrdering Facility: [facility] Address: [address] [place] [address] Performed By: #### 5 7021-8 ####[facility] LABORATORYCLIA [id number] [place] [address] [place] Hemoglobin (Bld) [Mass/Vol] 13.5 g/dL Normal 11.5-15.5 [facility] Comment on above: Order Comment: Speci men Type: BLOOD SPECIMENOrdering Facility: [facility] Address: [address] [place] [address] Performed By: #### 5 7021-8 ####[facility] LABORATORYCLIA [id number] [place] [address] [place] Immature granulocytes (Bld) [#/Vol] 0.03 10*3/uL Normal <0.10 [facility] Comment on above: Order Comment: Speci men Type: BLOOD SPECIMENOrdering Facility: [facility] Address: [address] [place] [address] Performed By: #### 5 7021-8 ####[facility] LABORATORYCLIA [id number] [place] [address] [place] Immature granulocytes/100 WBC (Bld) 0.3 % Normal [facility] Comment on above: Order Comment: Speci men Type: BLOOD SPECIMENOrdering Facility: [facility] Address: [address] [place] [address] Performed By: #### 5 7021-8 ####[facility] LABORATORYCLIA [id number] [place] [address] [place] Lymphocytes (Bld) [#/Vol] 0.96 10*3/uL Low 1.00-4.00 [facility] Comment on above: Order Comment: Speci men Type: BLOOD SPECIMENOrdering Facility: [facility] Address: [address] [place] [address] Performed By: #### 5 7021-8 ####[facility] LABORATORYCLIA [id number] [address] OF [place] Lymphocytes/100 WBC (Bld) 9.6 % Normal [facility] Comment on above: Order Comment: Speci men Type: BLOOD SPECIMENOrdering Facility: [facility] Address: [address] [place] [address] Performed By: #### 5 7021-8 ####[facility] LABORATORYCLIA [id number] [address] [place] MCH (RBC) [Entitic mass] 30.7 pg Normal 26.0-34.0 [facility] Comment on above: Order Comment: Speci men Type: BLOOD SPECIMENOrdering Facility: [facility] Address: [address] [place] [address] Performed By: #### 5 7021-8 ####[facility] LABORATORYCLIA [id number] [place] [address] [place] MCHC (RBC) [Mass/Vol] 32.5 g/dL Normal 30.5-36.0 [facility] Comment on above: Order Comment: Speci men Type: BLOOD SPECIMENOrdering Facility: [facility] Address: [address] [place] [address] Performed By: #### 5 7021-8 ####[facility] LABORATORYCLIA [id number] [address] MCV (RBC) [Entitic vol] 94.3 fL Normal 80.0-100.0 [facility] Comment on above: Order Comment: Speci men Type: BLOOD SPECIMENOrdering Facility: [facility] Address: [address] [place] [address] Performed By: #### 5 7021-8 ####[facility] LABORATORYCLIA [id number] [address] [place] Monocytes (Bld) [#/Vol] 0.92 10*3/uL High <0.87 [facility] Comment on above: Order Comment: Speci men Type: BLOOD SPECIMENOrdering Facility: [facility] Address: [address] [place] [address] Performed By: #### 5 7021-8 ####[facility] LABORATORYCLIA [id number] [address] Monocytes/100 WBC (Bld) 9.2 % Normal [facility] Comment on above: Order Comment: Speci men Type: BLOOD SPECIMENOrdering Facility: [facility] Address: [address] [place] [address] Performed By: #### 5 7021-8 ####[facility] LABORATORYCLIA [id number] [place] [address] [place] Neutrophils (Bld) [#/Vol] 7.94 10*3/uL High 1.45-7.50 [facility] Comment on above: Order Comment: Speci men Type: BLOOD SPECIMENOrdering Facility: [facility] Address: [address] [place] [address] Performed By: #### 5 7021-8 ####[facility] LABORATORYCLIA [id number] [place] [address] [place] Neutrophils/100 WBC (Bld) 79.2 % Normal [facility] Comment on above: Order Comment: Speci men Type: BLOOD SPECIMENOrdering Facility: [facility] Address: [address] [place] [address] Performed By: #### 5 7021-8 ####[facility] LABORATORYCLIA [id number] [place] [address] [place] Nucleated RBC (Bld) [#/Vol] 10*3/uL Normal <0.01 [facility] Comment on above: Order Comment: Speci men Type: BLOOD SPECIMENOrdering Facility: [facility] Address: [address] [place] [address] Performed By: #### 5 7021-8 ####[facility] LABORATORYCLIA [id number] [place] [address] [place] Nucleated RBC/100 WBC (Bld) [Ratio] 0.0 /100 WBC Normal [facility] Comment on above: Order Comment: Speci men Type: BLOOD SPECIMENOrdering Facility: [facility] Address: [address] [place] [address] Performed By: #### 5 7021-8 ####[facility] LABORATORYCLIA [id number] [place] [address] [place] Platelet mean volume (Bld) [Entitic vol] 9.8 fL Normal 9.0-12.7 [facility] Comment on above: Order Comment: Speci men Type: BLOOD SPECIMENOrdering Facility: [facility] Address: [facility] [place] [address] Performed By: #### 5 7021-8 ####[facility] LABORATORYCLIA [id number] [address] Platelets (Bld) [#/Vol] 182 10*3/uL Normal 150-400 [facility] Comment on above: Order Comment: Speci men Type: BLOOD SPECIMENOrdering Facility: [facility] Address: [address] [place] [address] Performed By: #### 5 7021-8 ####[facility] LABORATORYCLIA [id number] [address] OF [facility] RBC (Bld) [#/Vol] 4.40 10*6/uL Normal 3.90-5.20 The [facility] Comment on above: Order Comment: Speci men Type: BLOOD SPECIMENOrdering Facility: [facility] Address: [address] [place] [address] Performed By: #### 5 7021-8 ####[facility] LABORATORYCLIA [id number] [address] WBC (Bld) [#/Vol] 10.02 10*3/uL Normal 3.70-11.00 [facility] Comment on above: Order Comment: Speci men Type: BLOOD SPECIMENOrdering Facility: [facility] Address: [address] [place] [address] Performed By: #### 5 7021-8 ####[facility] LABORATORYCLIA [id number] [address] CONSULT PROGon 12-05-2024 CONSULT PROG HNO ID: [id number] Author: RACHEAL DE LA ROSA MD Service: Neurology General Author Type: Physician Type: Consult Progress Note Filed: 12/05/2024 08:45 Note Text: TELENEUROLOGY CONSULT PROGRESS NOTE Patient seen using Teleneurology Services. Recommendations are placed in the chart. Please review. For questions after hours, when teleneurologist is not available, for [facility]: Please Page [phone] for the [facility] from noon to 8am Please [...] 2024 TIME: 8:26 AM PAGER/CONTACT #: Normal [facility] Magnesium SerPl-mCncon 12-05 Magnesium [Mass/Vol] 2.1 mg/dL Normal 1.7-2.3 [facility] Comment on above: Order Comment: Speci men Type: BLOOD SPECIMENOrdering Facility: [facility] Address: [address] [place] [address] Performed By: #### 1 9123-9, 08861-5 ####[facility] LABORATORYCLIA [id number] [place] [address] [facility] ARTERIAL BLOOD GASESon 12-04 Carboxyhemoglobin (BldA) [Mass fraction] 1.4 % Normal 0.0-2.0 [facility] Comment on above: Order Comment: Speci men Type: ARTERIAL BLOOD SPECIMENOrdering Facility: [facility] Address: [address] [place] [address] Result Comment: Carb oxyhemoglobin Reference Range for Smokers: 2.0-8.0% Performed By: #### A LLBG ####[facility] RESPIRATORYIA [id number] [facility] [id number] [address] [address] CO2 (Bld) [Partial pressure] 46 mm Hg Normal 36-46 [facility] Comment on above: Order Comment: Speci men Type: ARTERIAL BLOOD SPECIMENOrdering Facility: [facility] Address: [address] [place] [address] Performed By: #### A LLBG ####[facility] RESPIRATORYCLIA [id number] [facility] RESPIRAT[facility] [id number] [address] CO2 adjusted to patient's actual temperature (Bld) [Partial pressure] Normal [facility] Comment on above: Order Comment: Speci men Type: ARTERIAL BLOOD SPECIMENOrdering Facility: [facility] Address: [address] [place] [address] Performed By: #### A LLBG ####[facility] RESPIRATORYIA [id number] [facility]OS[facility] RES[facility]IRAT[facility] [id number] [address] HCO3 (Bld) [Moles/Vol] 31 mmol/L High 22-26 [facility] Comment on above: Order Comment: Speci men Type: ARTERIAL BLOOD SPECIMENOrdering Facility: [facility] Address: [address] [place] [address] Performed By: #### A LLBG ####[facility] [id number] [facility] RES[facility]IRATORY [id number] [address] Hemoglobin (Bld) [Mass/Vol] 14.6 g/dL Normal 11.5-15.5 [facility] Comment on above: Order Comment: Speci men Type: ARTERIAL BLOOD SPECIMENOrdering Facility: [facility] Address: [address] [place] [place] [id number] Performed By: #### A LLBG ####[facility] [id number] [facility] RESPIRATORY [id number] [address] Lactate [Moles/Vol] 0.9 mmol/L Normal 0.5-2.2 [facility] Comment on above: Order Comment: Speci men Type: ARTERIAL BLOOD SPECIMENOrdering Facility: [facility] Address: [address] [place] [address] Performed By: #### A LLBG ####[facility] [id number] [facility] RESPIRATORY [id number] [address] [address] LITERS 2 Liters/min Normal [facility] Comment on above: Order Comment: Speci men Type: ARTERIAL BLOOD SPECIMENOrdering Facility: [facility] Address: [address] [place] [address] Performed By: #### A LLBG ####[facility] [id number] [facility] RESPIRAT[facility] [id number] [address] Methemoglobin (Bld) [Mass fraction] % Normal 0.0-1.5 [facility] Comment on above: Order Comment: Speci men Type: ARTERIAL BLOOD SPECIMENOrdering Facility: [facility] Address: [address], [place] [address] Performed By: #### A LLBG ####[facility] RESPIRATORYIA [id number] [facility] RESPIRAT[facility] [id number] [address] O2 THERAPY NC = Nasal Cannula Normal [facility] Comment on above: Order Comment: Speci men Type: ARTERIAL BLOOD SPECIMENOrdering Facility: [facility] Address: [address] [place] [address] Performed By: #### A LLBG ####[facility]PIRATORYVERMONT [facility] [id number] [facility]OS[facility] RESPIRATORY [id number] [address] [address] Oxygen (Bld) [Partial pressure] 70 mm Hg Low 85-95 [facility] Comment on above: Order Comment: Speci men Type: ARTERIAL BLOOD SPECIMENOrdering Facility: [facility] Address: [address] [place] [address] Performed By: #### A LLBG ####[facility] [id number] [facility]OS[facility] RESPIRATORY [id number] [address] Oxygen adjusted to patient's actual temperature (Bld) [Partial pressure] Normal [facility] Comment on above: Order Comment: Speci men Type: ARTERIAL BLOOD SPECIMENOrdering Facility: [facility] Address: [address] [place] [address] Performed By: #### A LLBG ####[facility] [id number] [facility] RESPIRATORY [id number] [address] Oxyhemoglobin (BldA) [Mass fraction] 94 % Low 95-98 [facility] Comment on above: Order Comment: Speci men Type: ARTERIAL BLOOD SPECIMENOrdering Facility: [facility] Address: [address] [place] [address] Performed By: #### A LLBG ####[facility] [id number] [facility] RESPIRATORY [id number] [address] pH (Bld) 7.43 [pH] Normal 7.35-7.45 [facility] Comment on above: Order Comment: Speci men Type: ARTERIAL BLOOD SPECIMENOrdering Facility: [facility] Address: [address] [place] [address] Performed By: #### A LLBG ####[facility] RESPIRATORYCLIA [id number] [facility] RESPIRATORY [id number] [address] pH adjusted to patient's actual temperature (Bld) Normal [facility] Comment on above: Order Comment: Speci men Type: ARTERIAL BLOOD SPECIMENOrdering Facility: [facility] Address: [address] [place], [place] [address] Performed By: #### A LLBG ####[facility] RESPIRATORYCLIA [id number] [facility] RES[facility]IRAT[facility] [id number] [address] [address] Potassium [Moles/Vol] 3.9 mmol/L Normal 3.5-5.0 [facility] Comment on above: Order Comment: Speci men Type: ARTERIAL BLOOD SPECIMENOrdering Facility: [facility] Address: [address] [place] [address] Performed By: #### A LLBG ####[facility] RESPIRATORYCLIA [id number] [facility] RESPIRATORY [id number] [address] Ammonia Plas-sCncon 12-05-19 25 Ammonia (P) [Moles/Vol] 29 umol/L Normal 11-51 M [facility] Comment on above: Order Comment: Speci men Type: BLOOD SPECIMENOrdering Facility: [facility] Address: [address] [place], [place] [address] Performed By: #### 1 6362-6 ####[facility] LABORATORYCLIA [id number] [place] [address] [facility] CONSULTon 12-04-2024 CONSULT HNO ID: [id number] Author: RACHEAL DE LA ROSA MD Service: [...] pm [place]: 1 pm to 5 pm [facility]: 3 pm to 5 pm Statutory holidays do not have teleneuro coverage. [facility]: During Off hours for Teleneurology please page (not call) [facility] [phone] extension work director for concerns. [place]: During Off hours for Teleneurology please page (not call) [facility] [phone] extension work director for concerns. [facility]: There is no off-hours coverage for Teleneurology. [...] for her cancer. Her neurologist is at [facility]. She is on sinemet 1.5 [...] neoplasm of upper-outer (more content not included)... [facility] THERAPY NTon 12-04-2024 THERAPY NT HNO ID: [id number] Author: ALAN IBANEZ OTR/West Service: Occupational Therapy Author Type: Occupational Therapist Type: Therapy (PT/OT/Speech/Resp) Filed: 12/04/2024 14:53 Note Text: Summary: OT Eval Occupational Therapy Evaluation Summary SERVICE DATE: 12/04/2024 SERVICE TIME: 1338 to 1428 ROOM: [id number] OT 6 Clicks Score: 9 DISCHARGE RECOMMENDATIONS [...] toilet. Spouse assists with toilet transfer at [facility], spouse completes hygiene, some incontinent epsidoes Pt [...] INTERVENTIONS Evaluation, Therapeutic (more content not included)... [facility] THERAPY NT HNO ID: [id number] Author: MIGEL HYATT, [facility]-SPIRITUAL ADVISOR Service: Speech/Swallow Author Type: Speech Language Pathologist Type: Therapy (PT/OT/Speech/Resp) Filed: 12/04/2024 12:43 Note Text: Speech Therapy Clinical Swallow Evaluation, Speech Evaluation SERVICE DATE: 12/04/2024 SERVICE TIME: 1158 to 1239 ROOM: [place] [address] IMPRESSION Functional communication without limitations in: Speech, [...] doing ok patient's daughter and state when SPIRITUAL ADVISOR woke pt up and spoke with her for a minute that it was the most responsive pt had been since being admitted to the hospital THERAPY DIAGNOSIS Cognitive-Communicat ion Deficits, Dysphagia, oral phase TREATMENT INTERVENTIONS Speech Language Eval (96258), Clinical Swallow Evaluation (40261) Skilled Treatment Time (minutes): 41 TRAINING AND [...] chews when nothing is in her mouth. SPIRITUAL ADVISOR recommends follow up for cognition and assurance of tolerance of regular diet. Compensatory Strategies Utilized During Assessment: 1:1 Supervision, Alert (patient should be fully alert for P.O. intake), Alternate bites and sips, Small Bite/Sip Marta Swallow Protocol: Pass Suspected Esophageal Deficits: none suspected GOALS COGNITION: Patient will demonstrate knowledge of (more content not included)... [facility] THERAPY NT HNO ID: [id number] Author: ALAN IBANEZ OTR/West Service: Occupational Therapy Author Type: Occupational Therapist Type: Therapy (PT/OT/Speech/Resp) Filed: 12/04/2024 10:25 Note Text: Summary: OT MV OCCUPATIONAL THERAPY MISSED VISIT SERVICE DATE: 12/04/2024 SERVICE TIME: 1024 ROOM: [place] [address] Patient not seen due to Patient Not Available. Neuro at bedside. Will reattempt as schedule permits. SIGNATURE: VIVIENNE Jiménez/West PATIENT NAME: Madiha Perales DATE: December 04, 2024 TIME: 10:24 AM [facility] THERAPY NT HNO ID: [id number] Author: GAYE PACHECO PT Service: Physical Therapy Author Type: Physical Therapist Type: Therapy (PT/OT/Speech/Resp) Filed: 12/04/2024 09:20 Note Text: Summary: PT Evaluation Physical Therapy Evaluation Summary SERVICE DATE: 12/04/2024 SERVICE TIME: 836 to 905 ROOM: [id number] PT 6 Clicks Score: 8 DISCHARGE RECOMMENDATIONS [...] pt ag (more content not included)... Normal [facility] TOXICOLOGY SCREEN, ROUTINE U RINEon 12-04-2024 Amphetamines Confirm (U) [Mass/Vol] Negative Normal Negative [facility] Comment on above: Order Comment: Speci men Type: URINE SPECIMENOrdering Facility: [facility] Address: [address] [place] [address] Result Comment: Cuto ff threshold at 1000 ng/mL. Performed By: #### U TOX2 ####[facility] LABORATORYCLIA [id number] [place] [address] [place] BARBITURATES, URINE Negative Normal Negative [facility] Comment on above: Order Comment: Speci men Type: URINE SPECIMENOrdering Facility: [facility] Address: [address] [place] [address] Result Comment: Cuto ff threshold at 200 ng/mL. Performed By: #### U TOX2 ####[facility] LABORATORYCLIA [id number] [place] [address] [place] BENZODIAZEPINES, UR Negative Normal Negative [facility] Comment on above: Order Comment: Speci men Type: URINE SPECIMENOrdering Facility: [facility] Address: [address] [place] [address] Result Comment: Cuto ff threshold at 200 ng/mL. Performed By: #### U TOX2 ####[facility] LABORATORYCLIA [id number] [place] [address] [place] Cannabinoids Screen Ql (U) Negative Normal Negative [facility] Comment on above: Order Comment: Speci men Type: URINE SPECIMENOrdering Facility: [facility] Address: [address] [place] [address] Result Comment: Cuto ff threshold at 50 ng/mL. Performed By: #### U TOX2 ####[facility] LABORATORYCLIA [id number] [place] [address] [place] Cocaine Ql (U) Negative Normal Negative [facility] Comment on above: Order Comment: Speci men Type: URINE SPECIMENOrdering Facility: [facility] Address: [address] [place] [address] Result Comment: Cuto ff threshold at 300 ng/mL. Performed By: #### U TOX2 ####[facility] LABORATORYCLIA [id number] [place] [address] [place] Ethanol (U) [Mass/Vol] <11 Normal <11 [facility] Comment on above: Order Comment: Speci men Type: URINE SPECIMENOrdering Facility: [facility] Address: [address] [place] [address] Performed By: #### U TOX2 ####[facility] LABORATORYCLIA [id number] [place] [address] [place] Opiates Screen Ql (U) Negative Normal Negative [facility] Comment on above: Order Comment: Speci men Type: URINE SPECIMENOrdering Facility: [facility] Address: [address] [place] [address] Result Comment: Cuto ff threshold at 300 ng/mL. Performed By: #### U TOX2 ####[facility] LABORATORYCLIA [id number] [address] [place] oxyCODONE cutoff Screen (U) [Mass/Vol] Negative Normal Negative [facility] Comment on above: Order Comment: Speci men Type: URINE SPECIMENOrdering Facility: [facility] Address: [address] [place] [address] Result Comment: Cuto ff threshold at 100 ng/mL. Performed By: #### U TOX2 ####[facility] LABORATORYCLIA [id number] [address] [place] Phencyclidine Ql (U) Negative Normal Negative [facility] Comment on above: Order Comment: Speci men Type: URINE SPECIMENOrdering Facility: [facility] Address: [address] [place] [address] Result Comment: Cuto ff threshold at 25 ng/mL. Performed By: #### U TOX2 ####[facility] LABORATORYCLIA [id number] [place] [address] [place] ALLIED HEALTHon 12-03-2024 ALLIED HEALTH HNO ID: [id number] Author: LILIAN SHAW CT Service: Radiology Author Type: Technologist Type: [facility] Filed: 12/03/2024 18:00 Note Text: Radiology [...] PATIENT PRESENTS WITH AN IMPLANTABLE OR ATTACHED OIL FILTERS INSPECTOR: No RADIOLOGY DEPARTMENT: MR; Exam(s) Completed: Head: Routine Brain. Lavender Administered: No PERIPHERAL IV DATA: Not applicable SIGNED BY: RICHARD Viramontes December 03, 2024 6:00 PM [facility] HNO ID: [id number] Author: PAULA WOODS TECHNOLOGIST Service: Radiology Author Type: Technologist Type: [facility] Filed: 12/03/2024 08:24 Note Text: Radiology [...] PATIENT PRESENTS WITH AN IMPLANTABLE OR ATTACHED OIL FILTERS INSPECTOR: No RADIOLOGY DEPARTMENT: CT; Exam(s) Completed: Brain PERIPHERAL IV DATA: Not applicable Removed pt wedding ring per 's request. Ring given to in ER room 10 SIGNED BY: TECHNOLOGIST Roland December 03, 2024 8:23 AM [facility] HNO ID: [id number] Author: DENNIS WHITTEN Tech Service: Radiology Author Type: [place] Type: [facility] Filed: 12/03/2024 08:19 Note [...] PATIENT PRESENTS WITH AN IMPLANTABLE OR ATTACHED OIL FILTERS INSPECTOR: No RADIOLOGY DEPARTMENT: General X-ray: Exam(s) Completed: Chest X-Ray PERIPHERAL IV DATA: Not applicable SIGNED BY: Lobo Knight December 03, 2024 8:18 AM Normal [facility] CBC W Auto Differential pane l (Bld)on 12-03-2024 Basophils (Bld) [#/Vol] 0.04 10*3/uL Normal <0.11 [facility] Comment on above: Order Comment: Speci tai Type: BLOOD SPECIMENOrdering Facility: [facility] Address: [address] [place] [address] Performed By: #### 5 7021-8 ####[facility] LABORATORYCLIA [id number] [place] [address] [place] Basophils/100 WBC (Bld) 0.4 % Normal [facility] Comment on above: Order Comment: Speci men Type: BLOOD SPECIMENOrdering Facility: [facility] Address: [address] [place] [address] Performed By: #### 5 7021-8 ####[facility] LABORATORYCLIA [id number] [place] [address] [place] Differential cell count method Nom (Bld) Auto Normal [facility] Comment on above: Order Comment: Speci men Type: BLOOD SPECIMENOrdering Facility: [facility] Address: [address] [place] [address] Performed By: #### 5 7021-8 ####[facility] LABORATORYCLIA [id number] [place] [address] [place] Eosinophils (Bld) [#/Vol] 0.08 10*3/uL Normal <0.46 [facility] Comment on above: Order Comment: Speci men Type: BLOOD SPECIMENOrdering Facility: [facility] Address: [address] [place] [address] Performed By: #### 5 7021-8 ####[facility] LABORATORYCLIA [id number] [address] OF [place]ED Eosinophils/100 WBC (Bld) 0.7 % Normal [facility] Comment on above: Order Comment: Speci men Type: BLOOD SPECIMENOrdering Facility: [facility] Address: [address] [place] [address] Performed By: #### 5 7021-8 ####[facility] LABORATORYCLIA [id number] [address] [place] Erythrocyte distribution width (RBC) [Ratio] 14.0 % Normal 11.5-15.0 [facility] Comment on above: Order Comment: Speci men Type: BLOOD SPECIMENOrdering Facility: [facility] Address: [address] [place] [address] Performed By: #### 5 7021-8 ####[facility] LABORATORYCLIA [id number] [address] OF [place]ED Hematocrit (Bld) [Volume fraction] 44.6 % Normal 36.0-46.0 [facility] Comment on above: Order Comment: Speci men Type: BLOOD SPECIMENOrdering Facility: [facility] Address: [address] [place] [address] Performed By: #### 5 7021-8 ####[facility] LABORATORYCLIA [id number] [address] OF CED Hemoglobin (Bld) [Mass/Vol] 14.6 g/dL Normal 11.5-15.5 [facility] Comment on above: Order Comment: Speci men Type: BLOOD SPECIMENOrdering Facility: [facility] Address: [address] [place] [address] Performed By: #### 5 7021-8 ####[facility] LABORATORYCLIA [id number] [place] [address] [place] Immature granulocytes (Bld) [#/Vol] 10*3/uL Normal <0.10 [facility] Comment on above: Order Comment: Speci men Type: BLOOD SPECIMENOrdering Facility: [facility] Address: [address] [place] [address] Performed By: #### 5 7021-8 ####[facility] LABORATORYCLIA [id number] [address] [place] Immature granulocytes/100 WBC (Bld) 0.2 % Normal [facility] Comment on above: Order Comment: Speci men Type: BLOOD SPECIMENOrdering Facility: [facility] Address: [address] [place] [address] Performed By: #### 5 7021-8 ####[facility] LABORATORYCLIA [id number] [place] [address] [place] Lymphocytes (Bld) [#/Vol] 0.83 10*3/uL Low 1.00-4.00 [facility] Comment on above: Order Comment: Speci men Type: BLOOD SPECIMENOrdering Facility: [facility] Address: [address] [place] [address] Performed By: #### 5 7021-8 ####[facility] LABORATORYCLIA [id number] [address] Lymphocytes/100 WBC (Bld) 7.5 % Normal [facility] Comment on above: Order Comment: Speci men Type: BLOOD SPECIMENOrdering Facility: [facility] Address: [address] [place] [address] Performed By: #### 5 7021-8 ####[facility] LABORATORYCLIA [id number] [place] [address] [place] MCH (RBC) [Entitic mass] 30.9 pg Normal 26.0-34.0 [facility] Comment on above: Order Comment: Speci men Type: BLOOD SPECIMENOrdering Facility: [facility] Address: [address] [place] [address] Performed By: #### 5 7021-8 ####[facility] LABORATORYCLIA [id number] [address] MCHC (RBC) [Mass/Vol] 32.7 g/dL Normal 30.5-36.0 [facility] Comment on above: Order Comment: Speci men Type: BLOOD SPECIMENOrdering Facility: [facility] Address: [address] [place] [address] Performed By: #### 5 7021-8 ####[facility] LABORATORYCLIA [id number] [address] MCV (RBC) [Entitic vol] 94.5 fL Normal 80.0-100.0 [facility] Comment on above: Order Comment: Speci men Type: BLOOD SPECIMENOrdering Facility: [facility] Address: [address] [place] [address] Performed By: #### 5 7021-8 ####[facility] LABORATORYCLIA [id number] [address] Monocytes (Bld) [#/Vol] 0.67 10*3/uL Normal <0.87 [facility] Comment on above: Order Comment: Speci men Type: BLOOD SPECIMENOrdering Facility: [facility] Address: [address] [place] [address] Performed By: #### 5 7021-8 ####[facility] LABORATORYCLIA [id number] [address] Monocytes/100 WBC (Bld) 6.1 % Normal [facility] Comment on above: Order Comment: Speci men Type: BLOOD SPECIMENOrdering Facility: [facility] Address: [address] [place] [address] Performed By: #### 5 7021-8 ####[facility] LABORATORYCLIA [id number] [address] Neutrophils (Bld) [#/Vol] 9.37 10*3/uL High 1.45-7.50 [facility] Comment on above: Order Comment: Speci men Type: BLOOD SPECIMENOrdering Facility: [facility] Address: [address] [place] [address] Performed By: #### 5 7021-8 ####[facility] LABORATORYCLIA [id number] [address] [place] Neutrophils/100 WBC (Bld) 85.1 % Normal [facility] Comment on above: Order Comment: Speci men Type: BLOOD SPECIMENOrdering Facility: [facility] Address: [address] [place] [address] Performed By: #### 5 7021-8 ####[facility] LABORATORYCLIA [id number] [place] [address] [place] Nucleated RBC (Bld) [#/Vol] 10*3/uL Normal <0.01 [facility] Comment on above: Order Comment: Speci men Type: BLOOD SPECIMENOrdering Facility: [facility] Address: [address] [place] [address] Performed By: #### 5 7021-8 ####[facility] LABORATORYCLIA [id number] [address] [place] Nucleated RBC/100 WBC (Bld) [Ratio] 0.0 /100 WBC Normal [facility] Comment on above: Order Comment: Speci men Type: BLOOD SPECIMENOrdering Facility: [facility] Address: [address] [place] [address] Performed By: #### 5 7021-8 ####[facility] LABORATORYCLIA [id number] [place] [address] [place] Platelet mean volume (Bld) [Entitic vol] 9.8 fL Normal 9.0-12.7 [facility] Comment on above: Order Comment: Speci men Type: BLOOD SPECIMENOrdering Facility: [facility] Address: [address] [place] [address] Performed By: #### 5 7021-8 ####[facility] LABORATORYCLIA [id number] [place] [address] [place] Platelets (Bld) [#/Vol] 201 10*3/uL Normal 150-400 [facility] Comment on above: Order Comment: Speci men Type: BLOOD SPECIMENOrdering Facility: [facility] Address: [address] [place] [address] Performed By: #### 5 7021-8 ####[facility] LABORATORYCLIA [id number] [place] [id number] [place] RBC (Bld) [#/Vol] 4.72 10*6/uL Normal 3.90-5.20 [facility] Comment on above: Order Comment: Speci men Type: BLOOD SPECIMENOrdering Facility: [facility] Address: [facility] [place] [address] Performed By: #### 5 7021-8 ####[facility] LABORATORYCLIA [id number] [place] [id number] [place] WBC (Bld) [#/Vol] 11.01 10*3/uL High 3.70-11.00 [facility] Comment on above: Order Comment: Speci men Type: BLOOD SPECIMENOrdering Facility: [facility] Address: [facility] [place] [address] Performed By: #### 5 7021-8 ####CON[facility] LABORATORYCLIA [id number] [place] [id number] [facility] CT BRAIN WO IVCONon 12-04-19 CT BRAIN WO IVCON * * *Final Report* * * DATE OF EXAM: Dec 03 2024 8:29AM [facility] [place] [place] IVCON / [...] volume loss or normal pressure/communicati ng hydrocephalus. General Internist: [facility] Transcribe Date/Time: Dec 03 2024 8:45A Dictated by : LINDSEY GARCES MD This examination was interpreted and the report reviewed and electronically signed by: LINDSEY GARCES MD on Dec 03 2024 8:59AM EST [id number] CN Normal [facility] Comprehensive metabolic 2000 panelon 12-03-2024 Albumin [Mass/Vol] 4.5 g/dL Normal 3.9-4.9 [facility] Comment on above: Order Comment: Speci men Type: BLOOD SPECIMENOrdering Facility: [facility] Address: [address] [place] [address] Performed By: #### 2 4323-8, 3016-3, LIPNF ####CON[facility] LABORATORYCLIA [id number] [place] [address] [place] ALP [Catalytic activity/Vol] 106 U/L Normal 34-123 [facility] Comment on above: Order Comment: Speci men Type: BLOOD SPECIMENOrdering Facility: [facility] Address: [address] [place] [address] Performed By: #### 2 4323-8, 3016-3, LIPNF ####[facility] LABORATORYCLIA [id number] [place] [address] [place] ALT [Catalytic activity/Vol] 7 U/L Normal 7-38 [facility] Comment on above: Order Comment: Speci men Type: BLOOD SPECIMENOrdering Facility: [facility] Address: [address] [place] [address] Performed By: #### 2 4323-8, 3016-3, LIPNF ####CON[facility] LABORATORYCLIA [id number] [place] [address] [place] Anion gap [Moles/Vol] 11 mmol/L Normal 8-15 [facility] Comment on above: Order Comment: Speci men Type: BLOOD SPECIMENOrdering Facility: [facility] Address: [address] [place] [address] Performed By: #### 2 4323-8, 3016-3, LIPNF ####CONNER LABORATORYCLIA [id number] [address] [place] AST [Catalytic activity/Vol] 16 U/L Normal 13-35 [facility] Comment on above: Order Comment: Speci men Type: BLOOD SPECIMENOrdering Facility: [facility] Address: [address] [place] [address] Performed By: #### 2 4323-8, 3016-3, LIPNF ####CON[facility] LABORATORYCLIA [id number] [place] [address] [place] Bilirubin [Mass/Vol] 0.8 mg/dL Normal 0.2-1.3 [facility] Comment on above: Order Comment: Speci men Type: BLOOD SPECIMENOrdering Facility: [facility] Address: [address] [place], [place] [address] [address] Performed By: #### 2 4323-8, 3016-3, LIPNF ####CON[facility] LABORATORYCLIA [id number] [place] [address] [place] Calcium [Mass/Vol] 9.3 mg/dL Normal 8.5-10.2 [facility] Comment on above: Order Comment: Speci men Type: BLOOD SPECIMENOrdering Facility: [facility] Address: [address] [place] [address] Performed By: #### 2 4323-8, 6-3, LIPNF ####CONNER LABORATORYCLIA [id number] [place] [address] [place] Chloride [Moles/Vol] 101 mmol/L Normal 98-107 [facility] Comment on above: Order Comment: Speci men Type: BLOOD SPECIMENOrdering Facility: [facility] Address: [address] [place] [address] Performed By: #### 2 4323-8, 3015-3, LIPNF ####[facility] LABORATORYCLIA [id number] [place] [address] [place] CO2 [Moles/Vol] 28 mmol/L Normal 22-30 [facility] Comment on above: Order Comment: Speci men Type: BLOOD SPECIMENOrdering Facility: [facility] Address: [address] [place] [address] Performed By: #### 2 4323-8, 3015-3, LIPNF ####CON[facility] LABORATORYCLIA [id number] [place] [address] [place] Creatinine [Mass/Vol] 0.72 mg/dL Normal 0.58-0.96 [facility] Comment on above: Order Comment: Speci men Type: BLOOD SPECIMENOrdering Facility: [facility] Address: [address] [place] [address] Performed By: #### 2 4323-8, 6-3, LIPNF ####CON[facility] LABORATORYCLIA [id number] [place] [address] [place] Creatinine and Glomerular filtration rate.predicted panel (S/P/Bld) 86 mL/min/1.73m??? Normal >=60 [facility] Comment on above: Order Comment: Yoav lujan Type: BLOOD SPECIMENOrdering Facility: [facility] Address: [address] [place] [address] Result Comment: Mateo mated Glomerular Filtration Rate [...] #### 2 4323-8, 3016-3, LIPKWAME ####CON[facility] LABORATORYCLIA [id number] [place] [id number] [place] Glucose [Mass/Vol] 127 mg/dL High 74-99 [facility] Comment on above: Order Comment: Yoav lujan Type: BLOOD SPECIMENOrdering Facility: [facility] Address: [address] [place] [address] Result Comment: The [place] Diabetes Association (ADA) provides guidance for cutoff [...] Standards of Medical Care in Diabetes 2016, [place] Diabetes Association. Diabetes Care. 2016.39(Suppl 1). Performed By: #### 2 4323-8, 3016-3, LIPKWAME ####[facility]ORATORYCLIA [id number] [place] [id number] [place] Potassium [Moles/Vol] 4.2 mmol/L Normal 3.7-5.1 [facility] Comment on above: Order Comment: Yoav lujan Type: BLOOD SPECIMENOrdering Facility: [facility] Address: [address] [place] [address] Performed By: #### 2 4323-8, 3016-3, LIPNF ####[facility] LABORATORYCLIA [id number] [address] Protein [Mass/Vol] 7.6 g/dL Normal 6.3-8.0 [facility] Comment on above: Order Comment: Speci men Type: BLOOD SPECIMENOrdering Facility: [facility] Address: [address] [place] [address] Performed By: #### 2 4323-8, 3016-3, LIPNF ####[facility] LABORATORYCLIA [id number] [address] [place] Sodium [Moles/Vol] 140 mmol/L Normal 136-144 [facility] Comment on above: Order Comment: Speci men Type: BLOOD SPECIMENOrdering Facility: [facility] Address: [address] [place] [address] Performed By: #### 2 4323-8, 3016-3, LIPNF ####[facility] LABORATORYCLIA [id number] [address] [place] Urea nitrogen [Mass/Vol] 15 mg/dL Normal 7-21 [facility] Comment on above: Order Comment: Speci men Type: BLOOD SPECIMENOrdering Facility: [facility] Address: [address] [place] [address] Performed By: #### 2 4323-8, 3016-3, LIPNF ####[facility] LABORATORYCLIA [id number] [address] OF [place] ED NOTEon 12-03-2024 ED NOTE HNO ID: [id number] Author: JOLLY HURD RN Service: Nursing Author Type: Registered Nurse Type: ED Notes Filed: 12/03/2024 11:42 Note Text: Second heads up given to 3 south charger operator helper [facility] ED NOTE HNO ID: [id number] Author: JOLLY HURD RN Service: Nursing Author Type: Registered Nurse Type: ED Notes Filed: 12/03/2024 10:56 Note Text: Heads up given to 3 south charger operator helper [facility] ED NOTE HNO ID: [id number] Author: JOLLY HURD, RN Service: Nursing Author Type: Registered Nurse Type: ED Notes Filed: 12/03/2024 10:52 Note Text: Pt awake, talking and provided with snacks. [facility] ED NOTE HNO ID: [id number] Author: JOLLY HURD RN Service: Nursing Author Type: Registered Nurse Type: ED Notes Filed: 12/03/2024 17:26 Note Text: Pt's requested we remove pt's wedding ring. Ring removed and given to at bedside. [facility] ED PROV NOTEon 12-03-2024 ED PROV NOTE HNO ID: [id number] Author: LUANA MENDOZA DO Service: Emergency Medicine [...] not communicati (more content not included)... Normal [facility] EKGon 12-03-2024 Electrocardiogram Ventricular Rate : 92 BPM Atrial Rate : 92 BPM P-R Interval : 148 ms QRS Duration : 76 ms Q-T Interval : 364 ms QTC Calculation(Bazett) : 450 ms Calculated P Macclenny : 5 degrees Calculated R Macclenny : -7 degrees Calculated T Macclenny : 23 degrees NORMAL SINUS RHYTHM CANNOT RULE OUT ANTERIOR INFARCT , AGE UNDETERMINED ABNORMAL ECG Confirmed by LUANA MENDOZA DO ([id number]) on 12/03/2024 2:32:05 PM NAME : MADIHA PERALES PID : [id number] : 1945 Gender : Female Race : ORD : Procedure Date : Dec 03 2024 07:59:58 Edit Date : Dec 03 2024 14:32:08 Diagnosis: NORMAL SINUS RHYTHM CANNOT RULE OUT ANTERIOR INFARCT , AGE UNDETERMINED ABNORMAL ECG Confirmed by LAUNA MENDOZA DO ([id number]) on 12/03/2024 2:32:05 PM Test Reason : Location : 1 : ER ED Overread By : LUANA MENDOZA DO Edited By : LUANA MENDOZA DO Referred By : , Acquired by : [id number], Normal [facility] HISTORY PHYSICALon HISTORY PHYSICAL HNO ID: [id number] Author: ANAHI POLANCO MD Service: Hospital Medicine Author Type: Physician Type: H&P Filed: 12/03/2024 16:43 Note Text: DEPARTMENT OF HOSPITAL MEDICINE HISTORY AND PHYSICAL EXAM SERVICE DATE: 12/03/2024 SERVICE TIME: 3:58 PM Primary Care Physician: Marie Devi MD NIGHT AND WEEKEND COVERAGE: [facility] C[facility]: Days: [phone], please page attending physician. Nights: [phone], please page [facility] Night coverage pager [phone]. 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 Patient is a poor historian and [...] temperature was 98.7F, pulse of 88/[place] [address], RR of 22/min, 99% on room air. [...] GENERAL: No (more content not included)... Normal [facility] LIPID PANEL, NONFASTINGon Cholesterol [Mass/Vol] 152 mg/dL Normal <200 [facility] Comment on above: Order Comment: Speci men Type: BLOOD SPECIMENOrdering Facility: [facility] Address: [address] [place] [address] Result Comment: <200 mg/dL, Desirable 200-239 mg/dL, Borderline high >239 mg/dL, High Performed By: #### 2 4323-8, 3016-3, LIPNF ####[facility] LABORATORYCLIA [id number] [address] OF [facility] HDL CHOLESTEROL, NF 54 mg/dL Normal >39 [facility] Comment on above: Order Comment: Speci men Type: BLOOD SPECIMENOrdering Facility: [facility] Address: [address] [place] [address] Result Comment: 40-5 9 mg/dL, Acceptable >59 mg/dL, High: Negative risk factor for coronary heart disease <40 mg/dL, Low: Positive risk factor for coronary heart disease Performed By: #### 2 4323-8, 3016-3, LIPNF ####[facility] LABORATORYCLIA [id number] [address] OF CED LDL CHOLESTEROL CALCULATED, NF 84 mg/dL Normal <100 [facility] Comment on above: Order Comment: [facility] Type: BLOOD SPECIMENOrdering Facility: [facility] Address: [address] [place] [address] Result Comment: <100 mg/dL, Optimal 100-129 mg/dL, Near optimal/above optimal 130-159 mg/dL, Borderline high 160-189 mg/dL, High >189 mg/dL, Very high Secondary prevention optimal LDL Cholesterol levels are recommended to be <70 mg/dL LDL cholesterol is calculated using the Lock-NIH equation. Performed By: #### 2 4323-8, 3016-3, LIPNF ####[facility] LABORATORYCLIA [id number] [address] LDL/HDL RATIO, NF 1.56 mg/dL Normal <2.54 [facility] Comment on above: Order Comment: Yoav tai Type: BLOOD SPECIMENOrdering Facility: [facility] Address: [address] [place] [address] Result Comment: Refe myron: 1. National Cholesterol Education Program ATP III Guideline At-A-Glance Quick Desk Reference: National Heart, Lung, and Blood [place]. National Institutes of Health. 2001: NIH Publication No. 01-3305. 2. An International Atherosclerosis Society position paper: global recommendations for the management of dyslipidemia: executive summary, Atherosclerosis. 2014: 232(2):410-413. Performed By: #### 2 4323-8, 3016-3, LIPNF ####[facility] LABORATORYCLIA [id number] [address] OF [facility] NON HDL CHOL, NF 98 mg/dL Normal <130 [facility] Comment on above: Order Comment: Nehemiahjann lujan Type: BLOOD SPECIMENOrdering Facility: [facility] Address: [address] [place] [address] Result Comment: <130 mg/dL, Optimal 130-159 mg/dL, Near optimal/above optimal 160-189 mg/dL, Borderline high 190-219 mg/dL, High >219 mg/dL, Very high Secondary prevention optimal non HDL Cholesterol levels are recommended to be <100 mg/dL Performed By: #### 2 4323-8, 3016-3, LIPNF ####[facility] LABORATORYCLIA [id number] [address] T CHOL/HDL RATIO NF 2.81 mg/dL Normal <5.10 [facility] Comment on above: Order Comment: Yoav lujan Type: BLOOD SPECIMENOrdering Facility: [facility] Address: [address] [place] [address] Performed By: #### 2 4323-8, 3016-3, LIPNF ####[facility] LABORATORYCLIA [id number] [address] TRIGLYCERIDES, NF 70 mg/dL Normal <150 [facility] Comment on above: Order Comment: Yoav lujan Type: BLOOD SPECIMENOrdering Facility: [facility] Address: [address] [place] [address] Result Comment: <150 mg/dL, Normal 150-199 mg/dL, Borderline high 200-499 mg/dL, High >499 mg/dL, Very high Performed By: #### 2 4323-8, 3016-3, LIPNF ####[facility] LABORATORYCLIA [id number] [address] VLDL CHOLESTEROL, NF 11 mg/dL Normal <30 [facility] Comment on above: Order Comment: Yoav lujan Type: BLOOD SPECIMENOrdering Facility: [facility] Address: [address] [place] [address] Performed By: #### 2 4323-8, 3016-3, LIPNF ####[facility] LABORATORYCLIA [id number] [address] MRI BRAIN WO IVCONon 025 MRI BRAIN WO IVCON * * *Final Report* * * DATE OF EXAM: Dec 03 2024 6:17PM [facility] 0294 - MRI BRAIN WO IVCON / PROCEDURE REASON: Delirium * * * * Physician Interpretation * * * * EXAMINATION: MRI BRAIN WO IVCON HISTORY: Delirium - - - Altered state of awareness - Delirium - [id number] - - - - TECHNIQUE: MRI brain [...] acute infarct. Extensive chronic changes as detailed. General Internist: JARVIS Transcribe Date/Time: Dec 03 2024 8:33P Dictated by : SAGE ÁLVAREZ MD This examination was interpreted and the report reviewed and electronically signed by: SAGE ÁLVAREZ MD on Dec 03 2024 8:43PM EST [id number] CN Normal [facility] SEPSIS LACTATE W/ REFLEX (IN ITIAL)on 12-03-2024 Lactate [Moles/Vol] 1.4 mmol/L Normal 0.5-2.0 [facility] Comment on above: Order Comment: Speci men Type: BLOOD SPECIMENOrdering Facility: [facility] Address: [address] [place] [address] Performed By: #### S LACTR ####[facility] LABORATORYCLIA [id number] [place] [address] [place] THERAPY NTon 12-03-2024 THERAPY NT HNO ID: [id number] Author: ORQUIDEA VELÁZQUEZ OT/West Service: Occupational Therapy Author Type: Occupational Therapist Type: Therapy (PT/OT/Speech/Resp) Filed: 12/03/2024 14:34 Note Text: Summary: OT Missed Visit OCCUPATIONAL THERAPY MISSED VISIT SERVICE DATE: 12/03/2024 SERVICE TIME: 1430 ROOM: [place] [address] Patient not seen due to Incomplete Orders. Awaiting ED note and/or HANDP in order to complete chart review of patient and determine clinical appropriateness for participation in therapy evaluation at this time. Will re-attempt as schedule allows pending pt appropriateness. SIGNATURE: Orquidea Velázquez OT/L PATIENT NAME: Madiha Perales DATE: December 03, 2024 TIME: 2:31 PM Normal [facility] TSH SerPl-aCncon 12-03-2024 TSH Qn 1.260 m[IU]/L Normal 0.270-4.200 [facility] Comment on above: Order Comment: Speci men Type: BLOOD SPECIMENOrdering Facility: [facility] Address: [address] [place] [address] Performed By: #### 2 4323-8, 3016-3, LIPNF ####[facility] LABORATORYCLIA [id number] [place] [id number] [place] Urinalysis complete panel (U )on 12-03-2024 Bacteria LM.HPF (Urine sed) [#/Area] Few Abnormal None Seen [facility] Comment on above: Order Comment: Nehemiahi men Type: URINE SPECIMENOrdering Facility: [facility] Address: [address] [place], [place] [address] Performed By: #### 2 4356-8 ####[facility] LABORATORYCLIA [id number] [place] [address] [place] Bilirubin Ql (U) Negative Normal Negative [facility] Comment on above: Order Comment: Speci men Type: URINE SPECIMENOrdering Facility: [facility] Address: [address] [place] [address] Performed By: #### 2 4356-8 ####[facility] LABORATORYCLIA [id number] [place] [address] [place] Clarity (Unsp spec) Clear Normal Clear [facility] Comment on above: Order Comment: Speci men Type: URINE SPECIMENOrdering Facility: [facility] Address: [address] [place] [address] Performed By: #### 2 4356-8 ####[facility] LABORATORYCLIA [id number] [place] [address] [place] Color (U) Yellow Normal Yellow [facility] Comment on above: Order Comment: Speci men Type: URINE SPECIMENOrdering Facility: [facility] Address: [address] [place] [address] Performed By: #### 2 4356-8 ####[facility] LABORATORYCLIA [id number] [place] [address] [place] Epithelial cells LM.HPF (Urine sed) [#/Area] Few Normal [facility] Comment on above: Order Comment: Speci men Type: URINE SPECIMENOrdering Facility: [facility] Address: [address] [place] [address] Performed By: #### 2 4356-8 ####[facility] LABORATORYCLIA [id number] [place] [id number] [place] Glucose Test strip (U) [Mass/Vol] Negative Normal Negative [facility] Comment on above: Order Comment: Speci men Type: URINE SPECIMENOrdering Facility: [facility] Address: [address] [place] [address] Performed By: #### 2 4356-8 ####[facility] LABORATORYCLIA [id number] [place] [id number] [place] Hemoglobin Ql (U) Trace Abnormal Negative [facility] Comment on above: Order Comment: Speci men Type: URINE SPECIMENOrdering Facility: [facility] Address: [address] [place] [address] Performed By: #### 2 4356-8 ####[facility] LABORATORYCLIA [id number] [place] [address] [place] Ketones Ql (U) Negative Normal Negative [facility] Comment on above: Order Comment: Speci men Type: URINE SPECIMENOrdering Facility: [facility] Address: [address] [place] [address] Performed By: #### 2 4356-8 ####[facility] LABORATORYCLIA [id number] [place] [address] [place] Leukocyte esterase Test strip Ql (U) Trace Abnormal Negative [facility] Comment on above: Order Comment: Speci men Type: URINE SPECIMENOrdering Facility: [facility] Address: [address] [place] [address] Performed By: #### 2 4356-8 ####[facility] LABORATORYCLIA [id number] [place] [address] [place] Nitrite Ql (U) Negative Normal Negative [facility] Comment on above: Order Comment: Speci men Type: URINE SPECIMENOrdering Facility: [facility] Address: [address] [place] [address] Performed By: #### 2 4356-8 ####[facility] LABORATORYCLIA [id number] [place] [address] [place] pH (U) 7.0 [pH] Normal 5.0-8.0 [facility] Comment on above: Order Comment: Speci men Type: URINE SPECIMENOrdering Facility: [facility] Address: [address] [place] [address] Performed By: #### 2 4356-8 ####[facility] LABORATORYCLIA [id number] [place] [address] [place] Protein (U) [Mass/Vol] Negative Normal Negative [facility] Comment on above: Order Comment: Speci men Type: URINE SPECIMENOrdering Facility: [facility] Address: [address] [place] [address] Performed By: #### 2 4356-8 ####[facility] LABORATORYCLIA [id number] [place] [address] [place] RBC LM.HPF (Urine sed) [#/Area] 0-3 /HPF Normal 0-3 /HPF [facility] Comment on above: Order Comment: Speci men Type: URINE SPECIMENOrdering Facility: [facility] Address: [address] [place] [address] Performed By: #### 2 4356-8 ####[facility]ORATORYCLIA [id number] [place] [address] [place] Specific gravity (U) [Rel density] 1.015 Normal 1.005-1.030 [facility] Comment on above: Order Comment: Speci men Type: URINE SPECIMENOrdering Facility: [facility] Address: [address] [place] [address] Performed By: #### 2 4356-8 ####[facility]ORATORYCLIA [id number] [address] OF CED Urobilinogen Ql (U) 0.2 EU/dL Normal 0.2-1.0 EU/dL [facility] Comment on above: Order Comment: Speci men Type: URINE SPECIMENOrdering Facility: [facility] Address: [address] [place] [address] Performed By: #### 2 4356-8 ####[facility]ORATORYCLIA [id number] [address] WBC LM.HPF (Urine sed) [#/Area] 0-5 /HPF Normal 0-5 /HPF [facility] Comment on above: Order Comment: Speci men Type: URINE SPECIMENOrdering Facility: [facility] Address: [address] [place] [address] Performed By: #### 2 4356-8 ####[facility] LABORATORYCLIA [id number] [place] [address] [place] XR CHEST 1V [...] silhouette. Other: . IMPRESSION: No acute process. General Internist: JARVIS Transcribe Date/Time: Dec 03 2024 8:33A Dictated by : BOOKER PEDRAZA MD This examination was interpreted and the report reviewed and electronically signed by: BOOKER PEDRAZA MD on Dec 03 2024 8:34AM EST [id number] CN [facility] 25-hydroxyvitamin D3 [Mass/V ol]on 09-18-2024 25-hydroxyvitamin D [Mass/Vol] 51 ng/mL 30 - 100 ng/mL [facility] Comment on above: Vitamin D Status 25- [place] Vitamin D: Deficiency: <20 ng/mL Insufficiency: 20 - 29 ng/mL Optimal: > or = 30 ng/mL For 25-OH Vitamin D testing on patients on D2-supplementation and patients for whom quantitation of D2 and D3 fractions is required, the QuestAssureD(TM) 25-OH VIT D, (D2,D3), LC/MS/MS is recommended: order code 28839 (patients >2yrs). See Note 1 Note 1 For additional information, please refer to [email or web address]/ZBI927 (This link is being provided for informational/ educational purposes only.) CBC (INCLUDES DIFF/PLT)on Basophils (Bld) [#/Vol] 0.027 10*3/uL Normal 0-200 [facility] Diagnostics Comment on above: Performed By: #### 3 2495, 24444, 4990, 02406, 32851 #### [facility] [address], [address] [place] [address] Stove Carriage Operator: Jame Mena MD Basophils/100 WBC (Bld) 0.4 % Normal [facility] Comment on above: Performed By: #### 3 6127, 18709, 6399, 72706, 33132 #### [facility] of [place] [address] Stove Carriage Operator: Jame Mena MD Eosinophils (Bld) [#/Vol] 0.168 10*3/uL Normal 15-500 [facility] Comment on above: Performed By: #### 3 6127, 42837, 6399, 27268, 26594 #### [facility] of [place] [address] Stove Carriage Operator: Jame Mena MD Eosinophils/100 WBC (Bld) 2.5 % Normal [facility] Comment on above: Performed By: #### 3 6127, 27652, 6399, 74771, 11323 #### [facility] of [place] [address] Stove Carriage Operator: Jame Mena MD Erythrocyte distribution width (RBC) [Ratio] 12.6 % Normal 11.0-15.0 [facility] Comment on above: Performed By: #### 3 6127, 43926, 6399, 25215, 62323 #### [facility] of [place] [address] Stove Carriage Operator: Jame Mena MD Hematocrit (Bld) [Volume fraction] 43.6 % Normal 35.0-45.0 [facility] Comment on above: Performed By: #### 3 6127, 17111, 6399, 32799, 30616 #### [facility] of [place] [address] Stove Carriage Operator: Jame Mena MD Hemoglobin (Bld) [Mass/Vol] 14.6 g/dL Normal 11.7-15.5 [facility] Comment on above: Performed By: #### 3 6127, 67104, 6399, 42112, 77580 #### [facility] [place] [address] Stove Carriage Operator: Jame Mena MD Lymphocytes (Bld) [#/Vol] 1.206 10*3/uL Normal 850-3900 [facility] Comment on above: Performed By: #### 3 6127, 16234, 6399, 10588, 52623 #### [facility] of [address], [address] [place] [address] Stove Carriage Operator: Jame Mena MD Lymphocytes/100 WBC (Bld) 18.0 % Normal [facility] Comment on above: Performed By: #### 3 61, 53554, 6399, 50671, 61192 #### [facility] [place] [address] Stove Carriage Operator: Jmae Mena MD MCH (RBC) [Entitic mass] 31.6 pg Normal 27.0-33.0 [facility] Comment on above: Performed By: #### 3 61, 00442, 63, , 74200 #### [facility] [place] [address] Stove Carriage Operator: Jame Mena MD MCHC (RBC) [Mass/Vol] 33.5 [...] clinical condition. Performed By: #### 3 61, 56944, 63, 18799, 60582 #### [facility] of [address], [address] [place] [address] Stove Carriage Operator: Jame Mena MD MCV (RBC) [Entitic vol] 94.4 fL Normal 80.0-100.0 [facility] Comment on above: Performed By: #### 3 61, 23391, 6399, 51066, 62904 #### [facility] [place] [address] Stove Carriage Operator: Jame Mena MD Monocytes (Bld) [#/Vol] 0.469 10*3/uL Normal 200-950 [facility] Comment on above: Performed By: #### 3 6127, 98326, 6399, 36131, 29080 #### [facility] [place] [address] Stove Carriage Operator: Jame Mena MD Monocytes/100 WBC (Bld) 7.0 % Normal [facility] Comment on above: Performed By: #### 3 6127, 55118, 6399, 83939, 67403 #### [facility] [place] [address] Stove Carriage Operator: Jame Mena MD Neutrophils (Bld) [#/Vol] 4.831 10*3/uL Normal 6717-5055 [facility] Comment on above: Performed By: #### 3 6127, 10212, 6399, 04615, 18922 #### [facility] [place] [address] Stove Carriage Operator: Jame Mena MD Neutrophils/100 WBC (Bld) 72.1 % Normal [facility] Comment on above: Performed By: #### 3 6127, 19668, 6399, 86314, 61970 #### [facility] [place] [address] Stove Carriage Operator: Jame Mena MD Platelet mean volume (Bld) [Entitic vol] 11.2 fL Normal 7.5-12.5 [facility] Comment on above: Performed By: #### 3 6127, 34352, 6399, 52324, 66024 #### [facility] [place] [address] Stove Carriage Operator: Jame Mena MD Platelets (Bld) [#/Vol] 206 10*3/uL Normal 140-400 [facility] Comment on above: Performed By: #### 3 6127, 75433, 6399, 80320, 63234 #### [facility] of [address] [place] [address] Stove Carriage Operator: Jame Mena MD RBC (Bld) [#/Vol] 4.62 10*6/uL Normal 3.80-5.10 [facility] Comment on above: Performed By: #### 3 6127, 48759, 6399, 35516, 96347 #### [facility] [address], [address] [place] [address] Stove Carriage Operator: Jame Mena MD WBC (Bld) [#/Vol] 6.7 10*3/uL Normal 3.8-10.8 [facility] Comment on above: Performed By: #### 3 6127, 20275, 6399, 15095, 32033 #### [facility] [address], [address] [place] [address] Stove Carriage Operator: Jame Mena MD CBC W Auto Differential pane l (Bld)on 09-18-2024 Basophils (Bld) [#/Vol] 27 10*3/uL [facility] Basophils/100 WBC (Bld) 0.4 % [facility] Eosinophils (Bld) [#/Vol] 168 10*3/uL [facility] Eosinophils/100 WBC (Bld) 2.5 % [facility] Erythrocyte distribution width (RBC) [Ratio] 12.6 % 11.0 - 15.0 % [facility] Hematocrit (Bld) [Volume fraction] 43.6 % 35.0 - 45.0 % [facility] Hemoglobin (Bld) [Mass/Vol] 14.6 g/dL 11.7 - 15.5 g/dL [facility] Lymphocytes (Bld) [#/Vol] 1206 10*3/uL [facility] Lymphocytes/100 WBC (Bld) 18 % [facility] MCH (RBC) [Entitic mass] 31.6 pg 27.0 - 33.0 pg [facility] MCHC (RBC) [Mass/Vol] 33.5 g/dL 32.0 - 36.0 g/dL [facility] Comment on above: For adults, a slight decrease in the calculated MCHC value (in the range of 30 to 32 g/dL) is most likely not clinically significant; however, it should be interpreted with caution in correlation with other red cell parameters and the patient's clinical condition. MCV (RBC) [Entitic vol] 94.4 fL 80.0 - 100.0 fL [facility] Monocytes (Bld) [#/Vol] 469 10*3/uL [facility] Monocytes/100 WBC (Bld) 7 % [facility] Neutrophils (Bld) [#/Vol] 4831 10*3/uL [facility] Neutrophils/100 WBC (Bld) 72.1 % [facility] Platelet mean volume (Bld) [Entitic vol] 11.2 fL 7.5 - 12.5 fL [facility] Platelets (Bld) [#/Vol] 206 10*3/uL [facility] RBC (Bld) [#/Vol] 4.62 10*6/uL [facility] WBC (Bld) [#/Vol] 6.7 10*3/uL [facility] COMPREHENSIVE METABOLIC PANE L W/ANION GAPon 09-18-2024 Albumin [Mass/Vol] 4.4 g/dL Normal 3.6-5.1 [facility] Comment on above: Order Comment: FASTI NG:NO FASTING: NO Performed By: #### 3 0893, 63091, 6399, 07057, 54491 #### [facility] [address], [address] [place] [address] Stove Carriage Operator: Jame Mena MD ALP [Catalytic activity/Vol] 95 U/L Normal 37-153 [facility] Comment on above: Order Comment: FASTI NG:NO FASTING: NO Performed By: #### 3 6127, 73810, 6399, 58685, 31819 #### [facility] [address], [address] [place], [place] [address] Stove Carriage Operator: Jame Mena MD ALT [Catalytic activity/Vol] 17 U/L Normal 6-29 [facility] Comment on above: Order Comment: FASTI NG:NO FASTING: NO Performed By: #### 3 8127, 26762, 6399, 12248, 91334 #### [facility] [place] [address] Stove Carriage Operator: Jame Mena MD AST [Catalytic activity/Vol] 15 U/L Normal 10-35 [facility] Comment on above: Order Comment: FASTI NG:NO FASTING: NO Performed By: #### 3 6127, 06011, 6399, 40086, 82610 #### [facility] [place] [address] Stove Carriage Operator: Jame Mena MD Bilirubin [Mass/Vol] 0.6 mg/dL Normal 0.2-1.2 [facility] Comment on above: Order Comment: FASTI NG:NO FASTING: NO Performed By: #### 3 6127, 53645, 6399, 29594, 20084 #### [facility] [place] [address] Stove Carriage Operator: Jame Mena MD Calcium [Mass/Vol] 9.7 mg/dL Normal 8.6-10.4 [facility] Comment on above: Order Comment: FASTI NG:NO FASTING: NO Performed By: #### 3 6127, 44734, 6399, 70540, 20426 #### [facility] [place] [address] Stove Carriage Operator: Jame Mena MD Chloride [Moles/Vol] 102 mmol/L Normal 98-110 [facility] Comment on above: Order Comment: FASTI NG:NO FASTING: NO Performed By: #### 3 6127, 32206, 6399, 54727, 16416 #### [facility] [place] [address] Stove Carriage Operator: Jame Mena MD CO2 [Moles/Vol] 32 mmol/L Normal 20-32 [facility] Comment on above: Order Comment: FASTI NG:NO FASTING: NO Performed By: #### 3 6127, 77989, 6399, 28638, 89159 #### [facility] [place] [address] Stove Carriage Operator: Jame Mena MD Creatinine [Mass/Vol] 0.59 mg/dL Low 0.60-1.[address] [facility] Comment on above: Order Comment: FASTI NG:NO FASTING: NO Performed By: #### 3 6127, 08240, 6399, 88611, 33889 #### [facility] [place] [address] Stove Carriage Operator: Jame Mena MD ELECTROLYTE BALANCE 8 mmol/L (calc) Normal 7-17 [facility] Comment on above: Order Comment: FASTI NG:NO FASTING: NO Performed By: #### 3 6127, 20227, 6399, 22604, 06805 #### [facility] [place] [address] Stove Carriage Operator: Jame Mena MD GFR/1.73 sq M.predicted among non-blacks MDRD (S/P/Bld) [Vol rate/Area] 92 mL/min/{1.73_m2} Normal > OR = 60 [facility] Comment on above: Order Comment: FASTI NG:NO FASTING: NO Performed By: #### 3 6127, 89714, 6399, 07803, 52115 #### [facility] [place] [address] Stove Carriage Operator: Jame Mena MD Glucose [Mass/Vol] 86 mg/dL Normal 65-139 [facility] Comment on above: Order Comment: FASTI NG:NO FASTING: NO Result Comment: Non-fasting reference interval Performed By: #### 3 6127, 80633, 6399, 71968, 22331 #### [facility] [place] [address] Stove Carriage Operator: Jame Mena MD Potassium [Moles/Vol] 4.7 mmol/L Normal 3.5-5.3 [facility] Comment on above: Order Comment: FASTI NG:NO FASTING: NO Performed By: #### 3 6127, 12713, 6399, 33513, 20085 #### [facility] [address], [address] [place] [address] Stove Carriage Operator: Jame Mena MD Protein [Mass/Vol] 6.9 g/dL Normal 6.1-8.1 [facility] Comment on above: Order Comment: FASTI NG:NO FASTING: NO Performed By: #### 3 6127, 56080, 6399, 79451, 08804 #### [facility] [address], [address] [place] [address] Stove Carriage Operator: Jame Mena MD Sodium [Moles/Vol] 142 mmol/L Normal 135-146 [facility] Comment on above: Order Comment: FASTI NG:NO FASTING: NO Performed By: #### 3 6127, 29668, 6399, 96151, 04122 #### [facility] [address], [address] [place] [address] Stove Carriage Operator: Jame Mena MD Urea nitrogen [Mass/Vol] 15 mg/dL Normal 7-25 [facility] Comment on above: Order Comment: FASTI NG:NO FASTING: NO Performed By: #### 3 6127, 64494, 6399, 22135, 94121 #### [facility] [place] [address] Stove Carriage Operator: Jame Mena MD Comprehensive metabolic 2000 panelon 09-18-2024 Albumin [Mass/Vol] 4.4 g/dL 3.6 - 5.1 g/dL [facility] ALP [Catalytic activity/Vol] 95 U/L 37 - 153 U/L [facility] ALT [Catalytic activity/Vol] 17 U/L 6 - 29 U/L [facility] Anion gap [Moles/Vol] 8 mmol/L [facility] AST [Catalytic activity/Vol] 15 U/L 10 - 35 U/L [facility] Bilirubin [Mass/Vol] 0.6 mg/dL 0.2 - 1 .2 mg/dL [facility] Calcium [Mass/Vol] 9.7 mg/dL 8.6 - 10. 4 mg/dL [facility] Chloride [Moles/Vol] 102 mmol/L 98 - 11 0 mmol/L [facility] CO2 [Moles/Vol] 32 mmol/L 20 - 32 mmol/L [facility] Creatinine [Mass/Vol] 0.59 mg/dL Low 0.60 - 1.00 mg/dL [facility] GFR/1.73 sq M.predicted among non-blacks MDRD (S/P/Bld) [Vol rate/Area] 92 mL/min/{1.73_m2} > OR = 60 mL/min/1.73m 2 [facility] Glucose [Mass/Vol] 86 mg/dL 65 - 139 mg/dL [facility] Comment on above: Non-fasting reference interval Potassium [Moles/Vol] 4.7 mmol/L 3.5 - 5.3 mmol/L [facility] Protein [Mass/Vol] 6.9 g/dL 6.1 - 8.1 g/dL [facility] Sodium [Moles/Vol] 142 mmol/L 135 - 146 mmol/L [facility] Urea nitrogen [Mass/Vol] 15 mg/dL 7 - 25 mg/dL [facility] HEMOGLOBIN A1c WITH eAGon eAG (mmol/L) 6.5 mmol/L Normal [facility] Comment on above: Performed By: #### 3 0729, 76360, 6399, 20243, 50521 #### [facility] [address], [address] [place] [address] Stove Carriage Operator: Jame Mena MD HEMOGLOBIN A1c 5.7 % [...] diabetes for children. Performed By: #### 3 2564, 64529, 6399, 11843, 42953 #### [facility] [address] [place] [address], [address] Stove Carriage Operator: Jame Mena MD Magnesium [Mass/Vol] 117 mg/dL Normal [facility] Comment on above: Performed By: #### 3 6127, 19017, 6399, 31102, 15140 #### [facility] [address], [address] [place] [address] Stove Carriage Operator: Jame Mena MD HbA1c (Bld) [Mass fraction]o n 09-18-2024 Average glucose Estimated from glycated hemoglobin (Bld) [Mass/Vol] 117 mg/dL [facility] Average glucose Estimated from glycated hemoglobin (Bld) [Moles/Vol] 6.5 mmol/L [facility] Hemoglobin A1Con 09-18-2024 HbA1c (Bld) [Mass fraction] 5.7 % High [facility] Comment on above: For someone without known [...] Interpretation and review of laboratory results Abnormal [facility] FASTING:NO FASTING: NO [facility] [place] [facility] TSH W/REFLEX TO FT4on 2024 TSH W/REFLEX TO FT4 2.56 mIU/L Normal 0.40-4.50 [facility] Comment on above: Performed By: #### 3 6127, 13727, 6399, 71697, 37458 #### [facility] [address], [address] Stove Carriage Operator: Jame Mena MD Tsh With Reflex To Free T4 I f Abnormalon 09-18-2024 TSH Qn 2.56 m[IU]/L [facility] VITAMIN B12on 09-18-2024 Cobalamin (Vitamin B12) [Mass/Vol] 504 pg/mL Normal 200-1100 [facility] Comment on above: Performed By: #### 3 6127, 33368, 6399, 97773, 12497 #### [facility] [address], [address] [place], [place] [address] Stove Carriage Operator: Jame Mena MD VITAMIN D,25-OH,TOTAL,IAon 0 09-18-2024 [...] D, (D2,D3), LC/MS/MS is recommended: order code 76422 (patients >2yrs). See Note 1 Note 1 For additional information, please refer to http://education.[employer].Viralheat/faq/WIF600 (This link is being provided for informational/ educational purposes only.) Performed By: #### 3 6127, 76449, 6399, 14705, 86071 #### [facility] [address], [address] [place], [place] [address] Stove Carriage Operator: Jame Mena MD Vitamin B12on 09-18-2024 Cobalamin (Vitamin B12) [Mass/Vol] 504 pg/mL 200 - 1100 pg/mL [facility] 36on 08-10-2024 36 LVM with pt that pharmacy is working on Arimidex refill. Encouraged to call with any further concerns. Normal [facility] Office Visiton 08-10-2024 Follow-up visit [id number] Madiha Perales 1945 F Date Provider Department Center 08/10/2024 [id number] ESCOBEDO ONC None Family History Problem Relation Age of Onset Breast cancer Mother Lung cancer Father Colon cancer Paternal Grandfather Family Status - Relation Status Age at Mother Father Paternal Grandfather Level of Service:69523 [place] OFFICE/OUTPATIENT ESTABLISHED LOW MDM 20 MIN Reason for Visit and Comments: Breast Cancer [302] Normal [facility] Progress Noteon 08-10-2024 Progress Note Hematology/Oncology Office Visit Oncology History: 1) stage 1A left breast cancer, invasive ductal carcinoma grade 3. ER+ FL+ HER2+. cT1b N0 M0; pT1c N0 M0, diagnosed 01/28/23. - Patient is a 78 yo F who presented with an abnormal screening mammogram of the upper outer quadrant of the left breast on 11/27/22. Diagnostic imaging and ultrasound were performed on 01/21/2023: a 0.9 x 0.9 x 1 cm irregular mass in the left breast. 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 The patient underwent lumpectomy and sentinel node removal on 02/18/[address] Choi at [facility]: pathology revealed grade 3 invasive ductal carcinoma measuring 1.9 cm. There was focal DCIS and extensive lymphovascular invasion. Margins were negative for invasive and in situ component at greater than 2 mm. 6 axillary nodes were removed: 5 sentinel and 1 nonsentinel. All were negative.Ban harrison staged T1CN0. - she was referred to [facility] for medical and radiation oncology. Her case [...] She had a bilateral screening mammogram at [facility] on 03/25/24 which was negative for malignancy. [...] back pain Breast calcifications on mammogram Dementia ([facility]) Depression Eczema H/O colonoscopy Hemorrhoid Hx of rosacea Lower extremity edema MARCY (obstructive sleep apnea) The patient wears CPAP Parkinson disease ([facility]) Stroke ([facility]) 2009 Torn meniscus Uterine cancer ([facility]/HCC) ([facility]) 2005 Past Surgical History: Procedure Laterality Date [...] left breast in female, estrogen receptor positive ([facility]) 03/18/2023 Edema of both lower extremities 02/05/2023 [...] calcifications on mammogram 07/24/2013 Cerebrovascular accident (CVA) ([facility]) 06/23/2009 Social History Tobacco Use Smoking status: [...] mouth 2 (more content not included)... Normal [facility] 36on 08-02-2024 36 Refill request received for anastrazole. Prescription pended. Normal [facility] DBT Breast - bilateral scree noahn 03-26-2024 IMPRESSION: There is no mammographic evidence of malignancy. Routine follow-up mammogram in 1 year is recommended. BI-RADS Category 2: Benign Interpreting Radiologist: Cm Rausch M.D. Electronically signed on: 03/26/2024 General Internist: SURESH Transcribe Date/Time: Mar 25 2024 3:19P Dictated by : CM RAUSCH MD This examination was interpreted and the report reviewed and electronically signed by: CM RAUSCH MD on Mar 26 2024 10:24AM [facility] * * *Final Report* * * DATE OF EXAM: Mar 25 2024 3:42PM MAGO [id number] - LEE SCREENING W SHIVA / PROCEDURE REASON: multiple diagnoses * * * * Physician Interpretation * * * * [facility] [address] [place] [address] HISTORY: Patient is 79 years old and [...] other abnormalities are seen in either breast. [facility] Provider, [facility] - 03/26/2024 * * *Final Report* * * DATE OF EXAM: Mar 25 2024 3:42PM MAGO 0582 - LEE SCREENING W SHIVA / PROCEDURE REASON: multiple diagnoses * * * * Physician Interpretation * * * * [place] [id number] HISTORY: Patient is 79 years old and [...] Cm Rausch M.D. Electronically signed on: 03/26/2024 General Internist: SURESH Transcriwellington Date/Time: Mar 25 2024 3:19P Dictated by : CM RAUSCH MD This examination was interpreted and the report reviewed and electronically signed by: CM RAUSCH MD on Mar 26 2024 10:24AM EST [facility] DBT Breast - bilateral scree ningOrdered By: Bhupendra Provider on 03-26-2024 [facility] DBT Breast - bilateral scree vannesagon 03-25-2024 Radiology Study observation (narrative) [facility] LEE SCREENING W TOMOon 03-25 LEE SCREENING W SHIVA * * *Final Report* * * DATE OF EXAM: Mar 25 2024 3:42PM MAGO 0582 - LEE SCREENING W SHIVA / PROCEDURE REASON: multiple diagnoses * * * * Physician Interpretation * * * * [place] [address] HISTORY: Patient is 79 years old and [...] Cm Rausch M.D. Electronically signed on: 03/26/2024 General Internist: SURESH Transcriwellington Date/Time: Mar 25 2024 3:19P Dictated by : CM RAUSCH MD This examination was interpreted and the report reviewed and electronically signed by: CM RAUSCH MD on Mar 26 2024 10:24AM EST [id number] CN [facility] Encounteron 024 Hospital Encounter [id number] Madhia Perales 1945 F Date Provider Department Center 03/16/2024 [id number]-CULURKHVICKI DIEGO [facility] RAD ON None Family History Problem Relation Age of Onset Breast cancer Mother Lung cancer Father Colon cancer Paternal Grandfather Family Status - Relation Status Age at Mother Father Paternal Grandfather Level of Service:24704 [place] OFFICE/OUTPATIENT ESTABLISHED LOW [facility] 20 MIN Reason for Visit and Comments: Follow-up [[id number]] [facility] Nursing Noteon 03-16-2024 Nursing Note The patient is here at [facility] with her for follow up with Dr. Diego. She arrived in a wheelchair. She uses a care or walker at times to ambulate around the house. She does physical therapy at [facility]. She denies pain at the current time. She denies skin issues at the previous site of radiation. Her appetite and sleeping are good. Her energy level is fair. She is taking Arimidex as prescribed. She is scheduled for her next mammogram in March of 2024. She continues to follow up with Dr. Choi and Dr. Escobedo. [facility] Progress Noteon 03-16-2024 Progress Note RADIATION ONCOLOGY FOLLOW UP PATIENT: Madiha Perales DATE OF SERVICE: 03/16/2024 : 1945 AGE: 79 y.o. PRIMARY SITE AND HISTOPATHOLOGY: Left breast, grade 3 invasive ductal carcinoma, ER positive, FL positive, HER2 positive. STAGE: cT1b N0 M0, [...] the left breast. Biopsy was performed at [facility] on 01/28/2023. This revealed grade 3 invasive ductal carcinoma measuring at least 8 mm in dimension. ER positive at 100%, FL positive at 70% and HER2 positive at [...] distance. She is undergoing physical therapy at [facility]. She denies any breast issues. [...] patient wears CPAP Parkinson disease (HCC) Stroke ([facility]) 2009 Torn meniscus Uterine cancer (CMS/HCC) (HCC) [...] CARB-CHOLECALCIFEROL PO (more content not included)... Normal [facility] 02-19-2024 CNOV Office Visit (GENE) MADIHA PERALES ([id number]) 1945 F Date Time Provider Department 02/19/24 [...] breast in female, estrogen receptor positive (HCC) [facility] Notes under scanned Documents INTERVAL [...] wheezes Extremiti (more content not included)... Normal [facility] 36on 02-03-2024 36 Refill for Arimidex pended to be signed if agreeable. [facility] ([id number]) 1945 F Date Time Provider Department 02/03/24 [...] (HCC) [C50.412, Z17.0] Order(s):LEE SCREENING W SHIVA [[id number]] Order #: [id number] FUTURE Prescriptions as of 02/05/2024 - anastrozole [...] Status:Closed by CHANELLE ROSENBERG on 02/05/24 Normal [facility] Office Visiton 02-03-2024 Follow-up visit [id number] Madiha Perales 1945 F Date Provider Department Center 02/03/2024 [id number] ESCOBEDO ONC None Family History Problem Relation Age of Onset Breast cancer Mother Lung cancer Father Colon cancer Paternal Grandfather Family Status - Relation Status Age at Mother Father Paternal Grandfather Level of Service:69592 [place] OFFICE/OUTPATIENT ESTABLISHED MOD MDM 30 MIN Reason for Visit and Comments: Breast Mass [[id number]] [facility] Progress Noteon 02-03-2024 Progress Note Hematology/Oncology Office Visit Oncology History: 1) stage 1A left breast cancer, invasive ductal carcinoma grade 3. ER+ FL+ HER2+. cT1b N0 M0; pT1c N0 M0, diagnosed 01/28/23. - Patient is a 78 yo F who presented with an abnormal screening mammogram of the upper outer quadrant of the left breast on 11/27/22. Diagnostic imaging and ultrasound were performed on 01/21/2023: a 0.9 x 0.9 x 1 cm irregular mass in the left breast. 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 The patient underwent lumpectomy and sentinel node removal on 02/18/[address] Choi at [facility]: pathology revealed grade 3 invasive ductal carcinoma measuring 1.9 cm. There was focal DCIS and extensive lymphovascular invasion. Margins were negative for invasive and in situ component at greater than 2 mm. 6 axillary nodes were removed: 5 sentinel and 1 nonsentinel. All were negative.Ban harrison staged T1CN0. - she was referred to [facility] for medical and radiation oncology. Her case [...] back pain Breast calcifications on mammogram Dementia ([facility]) Depression Eczema H/O colonoscopy Hemorrhoid Hx of rosacea Lower extremity edema MARCY (obstructive sleep apnea) The patient wears CPAP Parkinson disease ([facility]) Stroke ([facility]) 2009 Torn meniscus Uterine cancer (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 Normal [facility] Office Visiton 11-04-2023 Follow-up visit [id number] Madiha Perales 1945 F Date Provider Department Center 11/04/2023 [id number] ESCOBEDO [facility] ONC None Family History Problem Relation Age of Onset Breast cancer Mother Lung cancer Father Colon cancer Paternal Grandfather Family Status - Relation Status Age at Mother Father Paternal Grandfather Level of Service:04288 [place] OFFICE/OUTPATIENT ESTABLISHED MOD MDM 30 MIN Reason for Visit and Comments: Breast Cancer [302] Normal [facility] Progress Noteon 11-04-2023 Progress Note Hematology/Oncology Office Visit Oncology History: 1) stage 1A left breast cancer, invasive ductal carcinoma grade 3. ER+ FL+ HER2+. cT1b N0 M0; pT1c N0 M0, diagnosed 01/28/23. - Patient is a 78 yo F who presented with an abnormal screening mammogram of the upper outer quadrant of the left breast on 11/27/22. Diagnostic imaging and ultrasound were performed on 01/21/2023: a 0.9 x 0.9 x 1 cm irregular mass in the left breast. 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 The patient underwent lumpectomy and sentinel node removal on 02/18/[address] Choi at [facility]: pathology revealed grade 3 invasive ductal carcinoma measuring 1.9 cm. There was focal DCIS and extensive lymphovascular invasion. Margins were negative for invasive and in situ component at greater than 2 mm. 6 axillary nodes were removed: 5 sentinel and 1 nonsentinel. All were negative.Pathologica christy staged T1CN0. - she was referred to [facility] for medical and radiation oncology. Her case [...] apnea) The patient wears CPAP Parkinson disease ([facility]) Stroke ([facility]) 2009 Torn meniscus Uterine cancer ([facility]) (HCC) 2005 Past Surgical History: Procedure Laterality [...] calcifications on mammogram 07/24/2013 Cerebrovascular accident (CVA) ([facility]) 06/23/2009 Social History Tobacco Use Smoking status: [...] Medications Medicat (more content not included)... Normal [facility] Basic metabolic 2000 panelon 10-27-2023 Anion gap [Moles/Vol] 12 mmol/L 9 - 18 mmol/L [facility] Calcium [Mass/Vol] 8.5 mg/dL 8.5 - 10. 2 mg/dL [facility] Chloride [Moles/Vol] 107 mmol/L High 97 - 10 5 mmol/L [facility] CO2 [Moles/Vol] 24 mmol/L 22 - 30 mmol/L [facility] Creatinine [Mass/Vol] 0.71 mg/dL 0.58 - 0.96 mg/dL [facility] GFR/1.73 sq M.predicted among non-blacks MDRD (S/P/Bld) [Vol rate/Area] 88 mL/min/{1.73_m2} - PINF [facility] Comment on above: Estimated Glomerular Filtration Rate [...] [Mass/Vol] 77 mg/dL 74 - 99 mg/dL [facility] Comment on above: The [place] Diabete s Association (ADA) provides guidance for [...] Standards of Medical Care in Diabetes 2016, [place] [employer]. Diabetes Care. 2016.39(Suppl 1). Interpretation and review of laboratory results Abnormal [facility] Potassium [Moles/Vol] 4.2 mmol/L 3.7 - 5.1 mmol/L [facility] Sodium [Moles/Vol] 143 mmol/L 136 - 144 mmol/L [facility] Urea nitrogen [Mass/Vol] 17 mg/dL 7 - 21 mg/dL [facility] Anion gap [Moles/Vol] 12 mmol/L Normal 9-18 [facility] Comment on above: Order Comment: Speci men Type: BLOOD SPECIMEN Ordering Facility: [facility] Mily Selby Address: [address] [place] [address] Performed By: #### 2 4321-2 #### [facility] CLIA [id number] [address] [place] [address] [place] Calcium [Mass/Vol] 8.5 mg/dL Normal 8.5-10.2 [facility] Comment on above: Order Comment: Speci men Type: BLOOD SPECIMEN Ordering Facility: [facility] Address: [address] [place] [address] Performed By: #### 2 4321-2 #### [facility] CLIA [id number] [address] [place] [address] [place] Chloride [Moles/Vol] 107 mmol/L High 97-105 [facility] Comment on above: Order Comment: Speci men Type: BLOOD SPECIMEN Ordering Facility: [facility] Address: [address] [place] [address] Performed By: #### 2 4321-2 #### [facility] CLIA [id number] [address] [place] [address] [place] CO2 [Moles/Vol] 24 mmol/L Normal 22-30 [facility] Comment on above: Order Comment: Speci men Type: BLOOD SPECIMEN Ordering Facility: [facility] Address: [address] [place] [address] Performed By: #### 2 4321-2 #### [facility] CLIA [id number] [address] [place] [address] [place] Creatinine [Mass/Vol] 0.71 mg/dL Normal 0.58-0.96 [facility] Comment on above: Order Comment: Speci men Type: BLOOD SPECIMEN Ordering Facility: [facility] Address: [address] [place] [address] Performed By: #### 2 4321-2 #### [facility] CLIA [id number] [address] [place] [address] [place] Creatinine and Glomerular filtration rate.predicted panel (S/P/Bld) 88 mL/min/1.73m??? Normal >=60 [facility] Comment on above: Order Comment: Speci men Type: BLOOD SPECIMEN Ordering Facility: [facility] Address: [address] [place] [address] Result Comment: Mateo mated Glomerular Filtration Rate [...] #### 2 4321-2 #### [facility] CLIA [id number] [address] [place] [address] [place] Glucose [Mass/Vol] 77 mg/dL Normal 74-99 [facility] Comment on above: Order Comment: Yoav lujan Type: BLOOD SPECIMEN Ordering Facility: [facility] Address: [address] [place] [address] Result Comment: The [place] Diabetes Association (ADA) provides guidance for cutoff [...] Standards of Medical Care in Diabetes 2016, [place] Diabetes Association. Diabetes Care. 2016.39(Suppl 1). Performed By: #### 2 4321-2 #### [facility] CLIA [id number] [address] [place] [address] [place] Potassium [Moles/Vol] 4.2 mmol/L Normal 3.7-5.1 [facility] Comment on above: Order Comment: Yoav lujan Type: BLOOD SPECIMEN Ordering Facility: [facility] Address: [address] [place] [address] Performed By: #### 2 4321-2 #### [facility] CLIA [id number] [address] [place] [address] [place] Sodium [Moles/Vol] 143 mmol/L Normal 136-144 [facility] Comment on above: Order Comment: Nehemiahi men Type: BLOOD SPECIMEN Ordering Facility: [facility] Address: [address] [place] [address] Performed By: #### 2 4321-2 #### [facility] CLIA [id number] [address] [place] [address] [facility] Urea nitrogen [Mass/Vol] 17 mg/dL Normal 7-21 [facility] Comment on above: Order Comment: Speci men Type: BLOOD SPECIMEN Ordering Facility: [facility] Address: [address] [place] [address] Performed By: #### 2 4321-2 #### [facility] CLIA [id number] [address] [place] [address] [place] CBC panel Auto (Bld)on 10-26 Erythrocyte distribution width (RBC) [Ratio] 14.8 % 11.5 - 15.0 % [facility] Hematocrit (Bld) [Volume fraction] 39.8 % 36.0 - 46.0 % [facility] Hemoglobin (Bld) [Mass/Vol] 12.9 g/dL 11.5 - 15.5 g/dL [facility] Interpretation and review of laboratory results Normal [facility] MCH (RBC) [Entitic mass] 29.9 pg 26.0 - 34.0 pg [facility] MCHC (RBC) [Mass/Vol] 32.4 g/dL 30.5 - 36.0 g/dL [facility] MCV (RBC) [Entitic vol] 92.1 fL 80.0 - 100.0 fL [facility] Nucleated RBC (Bld) [#/Vol] NINF [facility] Platelet mean volume (Bld) [Entitic vol] 10.6 fL 9.0 - 12.7 fL [facility] Platelets (Bld) [#/Vol] 168 10*3/uL [facility] RBC (Bld) [#/Vol] 4.32 10*6/uL 3.90 - 5.2 0 m/uL [facility] WBC (Bld) [#/Vol] 5.72 10*3/uL [facility] Erythrocyte distribution width (RBC) [Ratio] 14.8 % Normal 11.5-15.0 [facility] Comment on above: Order Comment: Speci men Type: BLOOD SPECIMEN Ordering Facility: [facility] Address: [address] [place] [address] Performed By: #### 5 8410-2 #### [facility] CLIA [id number] [address] [place] [address] [place] Hematocrit (Bld) [Volume fraction] 39.8 % Normal 36.0-46.0 [facility] Comment on above: Order Comment: Speci men Type: BLOOD SPECIMEN Ordering Facility: [facility] Address: [address] [place] [address] Performed By: #### 5 8410-2 #### [facility] CLIA [id number] [address] [place] [address] [place] Hemoglobin (Bld) [Mass/Vol] 12.9 g/dL Normal 11.5-15.5 [facility] Comment on above: Order Comment: Speci men Type: BLOOD SPECIMEN Ordering Facility: [facility] Address: [address] [place] [address] Performed By: #### 5 8410-2 #### [facility] CLIA [id number] [address] [place] [address] [place] MCH (RBC) [Entitic mass] 29.9 pg Normal 26.0-34.0 [facility] Comment on above: Order Comment: Speci men Type: BLOOD SPECIMEN Ordering Facility: [facility] Address: [address] [place] [address] Performed By: #### 5 8410-2 #### [facility] CLIA [id number] [address] [place] [address] [place] MCHC (RBC) [Mass/Vol] 32.4 g/dL Normal 30.5-36.0 [facility] Comment on above: Order Comment: Speci men Type: BLOOD SPECIMEN Ordering Facility: [facility] Address: [address] [place] [address] Performed By: #### 5 8410-2 #### [facility] CLIA [id number] [address] [place] [address] [place] MCV (RBC) [Entitic vol] 92.1 fL Normal 80.0-100.0 [facility] Comment on above: Order Comment: Speci men Type: BLOOD SPECIMEN Ordering Facility: [facility] Address: [address] [place] [address] Performed By: #### 5 8410-2 #### [facility] CLIA [id number] [address] [place] [address] [place] Nucleated RBC (Bld) [#/Vol] 10*3/uL Normal <0.01 [facility] Comment on above: Order Comment: Speci men Type: BLOOD SPECIMEN Ordering Facility: [facility] Address: [address] [place] [address] Performed By: #### 5 8410-2 #### [facility] CLIA [id number] [address] [place] [address] [place] Platelet mean volume (Bld) [Entitic vol] 10.6 fL Normal 9.0-12.7 [facility] Comment on above: Order Comment: Speci men Type: BLOOD SPECIMEN Ordering Facility: [facility] Address: [address] [place] [address] Performed By: #### 5 8410-2 #### [facility] CLIA [id number] [address] [place] [address] [place] Platelets (Bld) [#/Vol] 168 10*3/uL Normal 150-400 [facility] Comment on above: Order Comment: Speci men Type: BLOOD SPECIMEN Ordering Facility: [facility] Address: [address] [place] [address] Performed By: #### 5 8410-2 #### [facility] CLIA [id number] [address] [place] [address] [place] RBC (Bld) [#/Vol] 4.32 10*6/uL Normal 3.90-5.20 [facility] Comment on above: Order Comment: Speci men Type: BLOOD SPECIMEN Ordering Facility: [facility] Address: [address] [place] [address] Performed By: #### 5 8410-2 #### [facility] CLIA [id number] [address] [place] [id number] [place] WBC (Bld) [#/Vol] 5.72 10*3/uL Normal 3.70-11.00 [facility] Comment on above: Order Comment: Speci men Type: BLOOD SPECIMEN Ordering Facility: [facility] Address: [address] [place] [address] Performed By: #### 5 8410-2 #### [facility] CLIA [id number] [address] [place] [id number] [place] Basic metabolic 2000 panelon 10-23-2023 Anion gap [Moles/Vol] 9 mmol/L 9 - 18 mmol/L [facility] Calcium [Mass/Vol] 8.5 mg/dL 8.5 - 10. 2 mg/dL [facility] Chloride [Moles/Vol] 104 mmol/L 97 - 10 5 mmol/L [facility] CO2 [Moles/Vol] 27 mmol/L 22 - 30 mmol/L [facility] Creatinine [Mass/Vol] 0.73 mg/dL 0.58 - 0.96 mg/dL [facility] GFR/1.73 sq M.predicted among non-blacks MDRD (S/P/Bld) [Vol rate/Area] 85 mL/min/{1.73_m2} - PINF [facility] Comment on above: Estimated Glomerular Filtration Rate [...] [Mass/Vol] 76 mg/dL 74 - 99 mg/dL [facility] Comment on above: The [place] Diabete s Association (ADA) provides guidance for [...] Standards of Medical Care in Diabetes 2016, [place] Diabetes Association. Diabetes Care. 2016.39(Suppl 1). Interpretation and review of laboratory results Normal [facility] Potassium [Moles/Vol] 4.2 mmol/L 3.7 - 5.1 mmol/L [facility] Sodium [Moles/Vol] 140 mmol/L 136 - 144 mmol/L [facility] Urea nitrogen [Mass/Vol] 15 mg/dL 7 - 21 mg/dL [facility] Anion gap [Moles/Vol] 9 mmol/L Normal 9-18 [facility] Comment on above: Order Comment: Yoav lujan Type: BLOOD SPECIMEN Ordering Facility: [facility] Address: [address] [place] [address] Performed By: #### 5 8410-2 #### [facility] CLIA [id number] [address] [place] [address] [place] Calcium [Mass/Vol] 8.5 mg/dL Normal 8.5-10.2 [facility] Comment on above: Order Comment: Yoav lujan Type: BLOOD SPECIMEN Ordering Facility: [facility] Address: [address] [place] [address] Performed By: #### 5 8410-2 #### [facility] CLIA [id number] [address] [place] [address] [place] Chloride [Moles/Vol] 104 mmol/L Normal 97-105 [facility] Comment on above: Order Comment: Yoav lujan Type: BLOOD SPECIMEN Ordering Facility: [facility] Address: [address] [place] [address] Performed By: #### 5 8410-2 #### [facility] CLIA [id number] [address] [place] [address] [place] CO2 [Moles/Vol] 27 mmol/L Normal 22-30 [facility] Comment on above: Order Comment: Speci men Type: BLOOD SPECIMEN Ordering Facility: [facility] Address: [address] [place] [address] Performed By: #### 5 8410-2 #### [facility] CLIA [id number] [address] [place] [address] [place] Creatinine [Mass/Vol] 0.73 mg/dL Normal 0.58-0.96 [facility] Comment on above: Order Comment: Speci men Type: BLOOD SPECIMEN Ordering Facility: [facility] Address: [address] [place] [address] Performed By: #### 5 8410-2 #### [facility] CLIA [id number] [address] [place] [address] [facility] Creatinine and Glomerular filtration rate.predicted panel (S/P/Bld) 85 mL/min/1.73m??? Normal >=60 [facility] Comment on above: Order Comment: Speci men Type: BLOOD SPECIMEN Ordering Facility: [facility] Address: [address] [place] [address] Result Comment: Mateo mated Glomerular Filtration Rate [...] #### 5 8410-2 #### [facility] CLIA [id number] [address] [place] [address] [place] Glucose [Mass/Vol] 76 mg/dL Normal 74-99 [facility] Comment on above: Order Comment: Speci men Type: BLOOD SPECIMEN Ordering Facility: [facility] Address: [address] [place] [address] Result Comment: The [place] Diabetes Association (ADA) provides guidance for cutoff [...] Standards of Medical Care in Diabetes 2016, [place] Diabetes [employer]. Diabetes Care. 2016.39(Suppl 1). Performed By: #### 5 8410-2 #### [facility] CLIA [id number] [address] [place] [address] [place] Potassium [Moles/Vol] 4.2 mmol/L Normal 3.7-5.1 [facility] Comment on above: Order Comment: Yoav lujan Type: BLOOD SPECIMEN Ordering Facility: [facility] Address: [address] [place] [address] Performed By: #### 5 8410-2 #### [facility] CLIA [id number] [address] [place] [address] [place] Sodium [Moles/Vol] 140 mmol/L Normal 136-144 [facility] Comment on above: Order Comment: Yoav lujan Type: BLOOD SPECIMEN Ordering Facility: [facility] Address: [address] [place] [address] Performed By: #### 5 8410-2 #### [facility] CLIA [id number] [address] [place] [address] [place] Urea nitrogen [Mass/Vol] 15 mg/dL Normal 7-21 [facility] Comment on above: Order Comment: Yoav lujan Type: BLOOD SPECIMEN Ordering Facility: [facility] Address: [address] [place] [address] Performed By: #### 5 8410-2 #### [facility] CLIA [id number] [address] [place] [address] [place] CBC panel Auto (Bld)on 10-22 Erythrocyte distribution width (RBC) [Ratio] 15.0 % 11.5 - 15.0 % [facility] Hematocrit (Bld) [Volume fraction] 42.1 % 36.0 - 46.0 % [facility] Hemoglobin (Bld) [Mass/Vol] 13.7 g/dL 11.5 - 15.5 g/dL [facility] Interpretation and review of laboratory results Normal [facility] MCH (RBC) [Entitic mass] 29.9 pg 26.0 - 34.0 pg [facility] MCHC (RBC) [Mass/Vol] 32.5 g/dL 30.5 - 36.0 g/dL [facility] MCV (RBC) [Entitic vol] 91.9 fL 80.0 - 100.0 fL [facility] Nucleated RBC (Bld) [#/Vol] NINF [facility] Platelet mean volume (Bld) [Entitic vol] 10.5 fL 9.0 - 12.7 fL [facility] Platelets (Bld) [#/Vol] 164 10*3/uL [facility] RBC (Bld) [#/Vol] 4.58 10*6/uL 3.90 - 5.2 0 m/uL [facility] WBC (Bld) [#/Vol] 7.20 10*3/uL [facility] Erythrocyte distribution width (RBC) [Ratio] 15.0 % Normal 11.5-15.0 [facility] Comment on above: Order Comment: Yoav lujan Type: BLOOD SPECIMEN Ordering Facility: [facility] Address: [address] [place] [address] Performed By: #### 5 8410-2 #### [facility] CLIA [id number] [address] [place] [address] [place] Hematocrit (Bld) [Volume fraction] 42.1 % Normal 36.0-46.0 [facility] Comment on above: Order Comment: Yoav lujan Type: BLOOD SPECIMEN Ordering Facility: [facility] Address: [address] [place] [address] Performed By: #### 5 8410-2 #### [facility] CLIA [id number] [address] [place] [address] [place] Hemoglobin (Bld) [Mass/Vol] 13.7 g/dL Normal 11.5-15.5 [facility] Comment on above: Order Comment: Speci men Type: BLOOD SPECIMEN Ordering Facility: [facility] Address: [address] [place] [address] Performed By: #### 5 8410-2 #### [facility] CLIA [id number] [address] [place] [address] [place] MCH (RBC) [Entitic mass] 29.9 pg Normal 26.0-34.0 [facility] Comment on above: Order Comment: Speci men Type: BLOOD SPECIMEN Ordering Facility: [facility] Address: [address] [place] [address] Performed By: #### 5 8410-2 #### [facility] CLIA [id number] [address] [place] [address] [place] MCHC (RBC) [Mass/Vol] 32.5 g/dL Normal 30.5-36.0 [facility] Comment on above: Order Comment: Speci men Type: BLOOD SPECIMEN Ordering Facility: [facility] Address: [address] [place] [address] Performed By: #### 5 8410-2 #### [facility] CLIA [id number] [address] [place] [address] [place] MCV (RBC) [Entitic vol] 91.9 fL Normal 80.0-100.0 C [facility] Comment on above: Order Comment: Speci men Type: BLOOD SPECIMEN Ordering Facility: [facility] Address: [address] [place] [address] Performed By: #### 5 8410-2 #### [facility] CLIA [id number] [address] [place] [address] [place] Nucleated RBC (Bld) [#/Vol] 10*3/uL Normal <0.01 [facility] Comment on above: Order Comment: Speci men Type: BLOOD SPECIMEN Ordering Facility: [facility] Address: [address] [place] [address] Performed By: #### 5 8410-2 #### [facility] CLIA [id number] [address] [place] [address] [place] Platelet mean volume (Bld) [Entitic vol] 10.5 fL Normal 9.0-12.7 [facility] Comment on above: Order Comment: Speci men Type: BLOOD SPECIMEN Ordering Facility: [facility] Address: [address] [place] [address] Performed By: #### 5 8410-2 #### [facility] CLIA [id number] [address] [place] [address] [place] Platelets (Bld) [#/Vol] 164 10*3/uL Normal 150-400 [facility] Comment on above: Order Comment: Speci men Type: BLOOD SPECIMEN Ordering Facility: [facility] Address: [address] [place] [address] Performed By: #### 5 8410-2 #### [facility] CLIA [id number] [address] [place] [address] [place] RBC (Bld) [#/Vol] 4.58 10*6/uL Normal 3.90-5.20 [facility] Comment on above: Order Comment: Speci men Type: BLOOD SPECIMEN Ordering Facility: [facility] Address: [address] [place] [address] Performed By: #### 5 8410-2 #### [facility] CLIA [id number] [address] [place] [address] [place] WBC (Bld) [#/Vol] 7.20 10*3/uL Normal 3.70-11.00 [facility] Comment on above: Order Comment: Speci men Type: BLOOD SPECIMEN Ordering Facility: [facility] Address: [address] [place] [address] Performed By: #### 5 8410-2 #### [facility] CLIA [id number] [address] [place] [address] [place] Basic metabolic 2000 panelon 10-20-2023 Anion gap [Moles/Vol] 7 mmol/L Low 9 - 18 mmol/L [facility] Calcium [Mass/Vol] 8.4 mg/dL Low 8.5 - 10. 2 mg/dL [facility] Chloride [Moles/Vol] 101 mmol/L 97 - 10 5 mmol/L [facility] CO2 [Moles/Vol] 31 mmol/L High 22 - 30 mmol/L [facility] Creatinine [Mass/Vol] 0.91 mg/dL 0.58 - 0.96 mg/dL [facility] GFR/1.73 sq M.predicted among non-blacks MDRD (S/P/Bld) [Vol rate/Area] 65 mL/min/{1.73_m2} - PINF [facility] Comment on above: Estimated Glomerular Filtration Rate [...] [Mass/Vol] 83 mg/dL 74 - 99 mg/dL [facility] Comment on above: The [place] Diabete s Association (ADA) provides guidance for [...] Standards of Medical Care in Diabetes 2016, [place] [employer]. Diabetes Care. 2016.39(Suppl 1). Interpretation and review of laboratory results Abnormal [facility] Potassium [Moles/Vol] 4.4 mmol/L 3.7 - 5.1 mmol/L [facility] Sodium [Moles/Vol] 139 mmol/L 136 - 144 mmol/L [facility] Urea nitrogen [Mass/Vol] 30 mg/dL High 7 - 21 mg/dL [facility] Anion gap [Moles/Vol] 7 mmol/L Low 9-18 [facility] Comment on above: Order Comment: Speci men Type: BLOOD SPECIMEN Ordering Facility: [facility] Address: [address] [place] [address] Performed By: #### 5 8410-2 #### [facility] CLIA [id number] [address] [place] [address] [place] Calcium [Mass/Vol] 8.4 mg/dL Low 8.5-10.2 [facility] Comment on above: Order Comment: Speci men Type: BLOOD SPECIMEN Ordering Facility: [facility] Address: [address] [place] [address] Performed By: #### 5 8410-2 #### [facility] CLIA [id number] [address] [place] [address] [place] Chloride [Moles/Vol] 101 mmol/L Normal 97-105 [facility] Comment on above: Order Comment: Speci men Type: BLOOD SPECIMEN Ordering Facility: [facility] Address: [address] [place] [address] Performed By: #### 5 8410-2 #### [facility] CLIA [id number] [address] [place] [address] [place] CO2 [Moles/Vol] 31 mmol/L High 22-30 [facility] Comment on above: Order Comment: Speci men Type: BLOOD SPECIMEN Ordering Facility: [facility] Address: [address] [place] [address] Performed By: #### 5 8410-2 #### [facility] CLIA [id number] [address] [place] [address] [place] Creatinine [Mass/Vol] 0.91 mg/dL Normal 0.58-0.96 [facility] Comment on above: Order Comment: Speci men Type: BLOOD SPECIMEN Ordering Facility: [facility] Address: [address] [place] [address] Performed By: #### 5 8410-2 #### [facility] CLIA [id number] [address] [place] [address] [place] Creatinine and Glomerular filtration rate.predicted panel (S/P/Bld) 65 mL/min/1.73m??? Normal >=60 [facility] Comment on above: Order Comment: Yoav lujan Type: BLOOD SPECIMEN Ordering Facility: [facility] Address: [address] [place] [address] Result Comment: Mateo mated Glomerular Filtration Rate [...] GFR. Performed By: #### 5 8410-2 #### [facility] CLIA [id number] [address] [place] [address] [place] Glucose [Mass/Vol] 83 mg/dL Normal 74-99 [facility] Comment on above: Order Comment: Yoav lujan Type: BLOOD SPECIMEN Ordering Facility: [facility] Address: [address] [place] [address] Result Comment: The [place] Diabetes Association (ADA) provides guidance for cutoff [...] Standards of Medical Care in Diabetes 2016, [place] [employer]. Diabetes Care. 2016.39(Suppl 1). Performed By: #### 5 8410-2 #### [facility] CLIA [id number] [address] [place] [address] [place] Potassium [Moles/Vol] 4.4 mmol/L Normal 3.7-5.1 [facility] Comment on above: Order Comment: Speci men Type: BLOOD SPECIMEN Ordering Facility: [facility] Address: [address] [place] [address] Performed By: #### 5 8410-2 #### [facility] CLIA [id number] [address] [place] [address] [place] Sodium [Moles/Vol] 139 mmol/L Normal 136-144 [facility] Comment on above: Order Comment: Speci men Type: BLOOD SPECIMEN Ordering Facility: [facility] Address: [address] [place] [address] Performed By: #### 5 8410-2 #### [facility] CLIA [id number] [address] [place] [address] [place] Urea nitrogen [Mass/Vol] 30 mg/dL High 7-21 [facility] Comment on above: Order Comment: Speci men Type: BLOOD SPECIMEN Ordering Facility: [facility] Address: [address] [place] [address] Performed By: #### 5 8410-2 #### [facility] CLIA [id number] [address] [place] [address] [place] CBC panel Auto (Bld)on 10-19 Erythrocyte distribution width (RBC) [Ratio] 15.0 % 11.5 - 15.0 % [facility] Hematocrit (Bld) [Volume fraction] 42.7 % 36.0 - 46.0 % [facility] Hemoglobin (Bld) [Mass/Vol] 13.7 g/dL 11.5 - 15.5 g/dL [facility] Interpretation and review of laboratory results Abnormal [facility] MCH (RBC) [Entitic mass] 29.9 pg 26.0 - 34.0 pg [facility] MCHC (RBC) [Mass/Vol] 32.1 g/dL 30.5 - 36.0 g/dL [facility] MCV (RBC) [Entitic vol] 93.2 fL 80.0 - 100.0 fL [facility] Nucleated RBC (Bld) [#/Vol] NINF [facility] Platelet mean volume (Bld) [Entitic vol] 10.6 fL 9.0 - 12.7 fL [facility] Platelets (Bld) [#/Vol] 184 10*3/uL [facility] RBC (Bld) [#/Vol] 4.58 10*6/uL 3.90 - 5.2 0 m/uL [facility] WBC (Bld) [#/Vol] 11.11 10*3/uL [facility] Erythrocyte distribution width (RBC) [Ratio] 15.0 % Normal 11.5-15.0 [facility] Comment on above: Order Comment: Speci men Type: BLOOD SPECIMEN Ordering Facility: [facility] Address: [address] [place] [address] Performed By: #### 5 8410-2 #### [facility] CLIA [id number] [address] Hematocrit (Bld) [Volume fraction] 42.7 % Normal 36.0-46.0 [facility] Comment on above: Order Comment: Speci men Type: BLOOD SPECIMEN Ordering Facility: [facility] Address: [address] [place] [address] Performed By: #### 5 8410-2 #### [facility] CLIA [id number] [address] Hemoglobin (Bld) [Mass/Vol] 13.7 g/dL Normal 11.5-15.5 [facility] Comment on above: Order Comment: Speci men Type: BLOOD SPECIMEN Ordering Facility: [facility] Address: [address] [place] [address] Performed By: #### 5 8410-2 #### [facility] CLIA [id number] [address] [facility] MCH (RBC) [Entitic mass] 29.9 pg Normal 26.0-34.0 [facility] Comment on above: Order Comment: Speci men Type: BLOOD SPECIMEN Ordering Facility: [facility] Address: [address] [place] [address] Performed By: #### 5 8410-2 #### [facility] CLIA [id number] [address] [place], [place] [address] [place] [address] [place] MCHC (RBC) [Mass/Vol] 32.1 g/dL Normal 30.5-36.0 [facility] Comment on above: Order Comment: Speci men Type: BLOOD SPECIMEN Ordering Facility: [facility] Address: [address] [place] [address] Performed By: #### 5 8410-2 #### [facility] CLIA [id number] [address] OF [place] MCV (RBC) [Entitic vol] 93.2 fL Normal 80.0-100.0 C [facility] Comment on above: Order Comment: Speci men Type: BLOOD SPECIMEN Ordering Facility: [facility] Address: [address] [place] [address] Performed By: #### 5 8410-2 #### [facility] CLIA [id number] [address] [place] Nucleated RBC (Bld) [#/Vol] 10*3/uL Normal <0.01 [facility] Comment on above: Order Comment: Speci men Type: BLOOD SPECIMEN Ordering Facility: [facility] Address: [address] [place] [address] Performed By: #### 5 8410-2 #### [facility] CLIA [id number] [address] [place] Platelet mean volume (Bld) [Entitic vol] 10.6 fL Normal 9.0-12.7 [facility] Comment on above: Order Comment: Speci men Type: BLOOD SPECIMEN Ordering Facility: [facility] Address: [address] [place] [address] Performed By: #### 5 8410-2 #### [facility] CLIA [id number] [address] OF [place] Platelets (Bld) [#/Vol] 184 10*3/uL Normal 150-400 [facility] Comment on above: Order Comment: Speci men Type: BLOOD SPECIMEN Ordering Facility: [facility] Address: [address] [place] [address] Performed By: #### 5 8410-2 #### [facility] CLIA [id number] [address] OF [place] RBC (Bld) [#/Vol] 4.58 10*6/uL Normal 3.90-5.20 [facility] Comment on above: Order Comment: Speci men Type: BLOOD SPECIMEN Ordering Facility: [facility] Address: [address] [place] [address] Performed By: #### 5 8410-2 #### [facility] CLIA [id number] [address] [place] WBC (Bld) [#/Vol] 11.11 10*3/uL High 3.70-11.00 [facility] Comment on above: Order Comment: Speci men Type: BLOOD SPECIMEN Ordering Facility: [facility] Address: [address] [place] [address] Performed By: #### 5 8410-2 #### [facility] CLIA [id number] [address] [place] [address] [place] Basic metabolic 2000 panelon 10-16-2023 Anion gap [Moles/Vol] 9 mmol/L 9 - 18 mmol/L [facility] Calcium [Mass/Vol] 9.1 mg/dL 8.5 - 10. 2 mg/dL [facility] Chloride [Moles/Vol] 101 mmol/L 97 - 10 5 mmol/L [facility] CO2 [Moles/Vol] 29 mmol/L 22 - 30 mmol/L [facility] Creatinine [Mass/Vol] 0.66 mg/dL 0.58 - 0.96 mg/dL [facility] GFR/1.73 sq M.predicted among non-blacks MDRD (S/P/Bld) [Vol rate/Area] 90 mL/min/{1.73_m2} - PINF [facility] Comment on above: Estimated Glomerular Filtration Rate [...] [Mass/Vol] 91 mg/dL 74 - 99 mg/dL [facility] Comment on above: The [place] Diabete s Association (ADA) provides guidance for [...] Standards of Medical Care in Diabetes 2016, [place] [employer]. Diabetes Care. 2016.39(Suppl 1). Interpretation and review of laboratory results Abnormal [facility] Potassium [Moles/Vol] 4.7 mmol/L 3.7 - 5.1 mmol/L [facility] Sodium [Moles/Vol] 139 mmol/L 136 - 144 mmol/L [facility] Urea nitrogen [Mass/Vol] 29 mg/dL High 7 - 21 mg/dL [facility] Anion gap [Moles/Vol] 9 mmol/L Normal 9-18 [facility] Comment on above: Order Comment: Yoav lujan Type: BLOOD SPECIMEN Ordering Facility: [facility] Address: [address] [place] [address] Performed By: #### 2 4321-2 #### [facility] CLIA [id number] [address] [place] [address] [place] Calcium [Mass/Vol] 9.1 mg/dL Normal 8.5-10.2 [facility] Comment on above: Order Comment: Yoav lujan Type: BLOOD SPECIMEN Ordering Facility: [facility] Address: [address] [place] [address] Performed By: #### 2 4321-2 #### [facility] CLIA [id number] [address] [place] [address] [place] Chloride [Moles/Vol] 101 mmol/L Normal 97-105 [facility] Comment on above: Order Comment: Speci men Type: BLOOD SPECIMEN Ordering Facility: [facility] Address: [address] [place] [address] Performed By: #### 2 4321-2 #### [facility] CLIA [id number] [address] [place] [address] [place] CO2 [Moles/Vol] 29 mmol/L Normal 22-30 [facility] Comment on above: Order Comment: Speci men Type: BLOOD SPECIMEN Ordering Facility: [facility] Address: [address] [place] [address] Performed By: #### 2 4321-2 #### [facility] CLIA [id number] [address] [place] [address] [place] Creatinine [Mass/Vol] 0.66 mg/dL Normal 0.58-0.96 [facility] Comment on above: Order Comment: Speci men Type: BLOOD SPECIMEN Ordering Facility: [facility] Address: [address] [place] [address] Performed By: #### 2 4321-2 #### [facility] CLIA [id number] [address] Creatinine and Glomerular filtration rate.predicted panel (S/P/Bld) 90 mL/min/1.73m??? Normal >=60 [facility] Comment on above: Order Comment: Speci men Type: BLOOD SPECIMEN Ordering Facility: [facility] Address: [address] [place] [address] Result Comment: Mateo mated Glomerular Filtration Rate [...] #### 2 4321-2 #### [facility] CLIA [id number] [address] [place] [address] [place] Glucose [Mass/Vol] 91 mg/dL Normal 74-99 [facility] Comment on above: Order Comment: Yoav lujan Type: BLOOD SPECIMEN Ordering Facility: [facility] Address: [address] [place] [address] Result Comment: The [place] Diabetes Association (ADA) provides guidance for cutoff [...] Standards of Medical Care in Diabetes 2016, [place] [employer]. Diabetes Care. 2016.39(Suppl 1). Performed By: #### 2 4321-2 #### [facility] CLIA [id number] [address] [place] [address] [place] Potassium [Moles/Vol] 4.7 mmol/L Normal 3.7-5.1 [facility] Comment on above: Order Comment: Yoav lujan Type: BLOOD SPECIMEN Ordering Facility: [facility] Address: [address] [place] [address] Performed By: #### 2 4321-2 #### [facility] CLIA [id number] [address] [place] [address] [place] Sodium [Moles/Vol] 139 mmol/L Normal 136-144 [facility] Comment on above: Order Comment: Yoav lujan Type: BLOOD SPECIMEN Ordering Facility: [facility] Address: [address] [place] [address] Performed By: #### 2 4321-2 #### [facility] CLIA [id number] [address] [place] [address] [place] Urea nitrogen [Mass/Vol] 29 mg/dL High 7-21 [facility] Comment on above: Order Comment: Yoav lujan Type: BLOOD SPECIMEN Ordering Facility: [facility] Address: [address] [place] [address] Performed By: #### 2 4321-2 #### [facility] CLIA [id number] [address] [place] [address] [place] CBC panel Auto (Bld)on 10-15 Erythrocyte distribution width (RBC) [Ratio] 14.4 % 11.5 - 15.0 % [facility] Hematocrit (Bld) [Volume fraction] 46.6 % High 36.0 - 46.0 % [facility] Hemoglobin (Bld) [Mass/Vol] 15.3 g/dL 11.5 - 15.5 g/dL [facility] Interpretation and review of laboratory results Abnormal [facility] MCH (RBC) [Entitic mass] 30.1 pg 26.0 - 34.0 pg [facility] MCHC (RBC) [Mass/Vol] 32.8 g/dL 30.5 - 36.0 g/dL [facility] MCV (RBC) [Entitic vol] 91.6 fL 80.0 - 100.0 fL [facility] Nucleated RBC (Bld) [#/Vol] NINF [facility] Platelet mean volume (Bld) [Entitic vol] 10.8 fL 9.0 - 12.7 fL [facility] Platelets (Bld) [#/Vol] 219 10*3/uL [facility] RBC (Bld) [#/Vol] 5.09 10*6/uL 3.90 - 5.2 0 m/uL [facility] WBC (Bld) [#/Vol] 12.59 10*3/uL High [facility] Erythrocyte distribution width (RBC) [Ratio] 14.4 % Normal 11.5-15.0 [facility] Comment on above: Order Comment: Speci men Type: BLOOD SPECIMEN Ordering Facility: [facility] Address: [address] [place] [address] Performed By: #### 5 8410-2 #### [facility] CLIA [id number] [address] OF [facility] Hematocrit (Bld) [Volume fraction] 46.6 % High 36.0-46.0 [facility] Comment on above: Order Comment: Speci men Type: BLOOD SPECIMEN Ordering Facility: [facility] Address: [address] [place] [address] Performed By: #### 5 8410-2 #### [facility] CLIA [id number] [address] [place] Hemoglobin (Bld) [Mass/Vol] 15.3 g/dL Normal 11.5-15.5 [facility] Comment on above: Order Comment: Speci men Type: BLOOD SPECIMEN Ordering Facility: [facility] Address: [address] [place] [address] Performed By: #### 5 8410-2 #### [facility] CLIA [id number] [address] [place] [address] [place] MCH (RBC) [Entitic mass] 30.1 pg Normal 26.0-34.0 [facility] Comment on above: Order Comment: Speci men Type: BLOOD SPECIMEN Ordering Facility: [facility] Address: [address] [place] [address] Performed By: #### 5 8410-2 #### [facility] CLIA [id number] [address] [place] MCHC (RBC) [Mass/Vol] 32.8 g/dL Normal 30.5-36.0 [facility] Comment on above: Order Comment: Speci men Type: BLOOD SPECIMEN Ordering Facility: [facility] Address: [address] [place] [address] Performed By: #### 5 8410-2 #### [facility] CLIA [id number] [address] [place] MCV (RBC) [Entitic vol] 91.6 fL Normal 80.0-100.0 C [facility] Comment on above: Order Comment: Speci men Type: BLOOD SPECIMEN Ordering Facility: [facility] Address: [address] [place] [address] Performed By: #### 5 8410-2 #### [facility] CLIA [id number] [address] [place] Nucleated RBC (Bld) [#/Vol] 10*3/uL Normal <0.01 [facility] Comment on above: Order Comment: Speci men Type: BLOOD SPECIMEN Ordering Facility: [facility] Address: [address] [place] [address] Performed By: #### 5 8410-2 #### [facility] CLIA [id number] [address] [place] [address] [place] Platelet mean volume (Bld) [Entitic vol] 10.8 fL Normal 9.0-12.7 [facility] Comment on above: Order Comment: Speci men Type: BLOOD SPECIMEN Ordering Facility: [facility] Address: [address] [place] [address] Performed By: #### 5 8410-2 #### [facility] CLIA [id number] [address] [place] [address] [place] Platelets (Bld) [#/Vol] 219 10*3/uL Normal 150-400 [facility] Comment on above: Order Comment: Speci men Type: BLOOD SPECIMEN Ordering Facility: [facility] Address: [address] [place] [address] Performed By: #### 5 8410-2 #### [facility] CLIA [id number] [address] [place] [address] [place] RBC (Bld) [#/Vol] 5.09 10*6/uL Normal 3.90-5.20 [facility] Comment on above: Order Comment: Speci men Type: BLOOD SPECIMEN Ordering Facility: [facility] Address: [address] [place] [address] Performed By: #### 5 8410-2 #### [facility] CLIA [id number] [address] [place] [address] [place] WBC (Bld) [#/Vol] 12.59 10*3/uL High 3.70-11.00 [facility] Comment on above: Order Comment: Speci men Type: BLOOD SPECIMEN Ordering Facility: [facility] Address: [address] [place] [address] Performed By: #### 5 8410-2 #### [facility] CLIA [id number] [address] [place] 36on 10-13-2023 36 Spoke with Wesley about Citlaly. Citlaly was admitted to [facility] last Friday10/07/23. She says that she [...] her home on Friday and a good [facility] found her and assisted her. She is [...] 30 days prior to this severe episode. eWsley is unsure if worsening confusion could be [...] out to our office on discharge from [facility]. Will plan for Dr. Escobedo to reassess patient's functional and cognitive status prior to further infusion treatments. Normal [facility] 36on 10-06-2023 36 Follow up call made to pt., nano barrett - LMOM. Will continue to monitor and follow. Lisa Watters, MPA, RDN LD CDCES Normal [facility] CBC W Auto Differential pane l (Bld)Ordered By: Annie Call on 09-23-2023 Basophils (Bld) [#/Vol] 0.0 10*3/uL 0.0 - 0.2 10*3/uL [facility] Basophils/100 WBC (Bld) 0.5 % 0.0 - 2.0 % [facility] Eosinophils (Bld) [#/Vol] 0.1 10*3/uL 0.0 - 0.5 10*3/uL [facility] Eosinophils/100 WBC (Bld) 2.2 % 0.0 - 6.0 % [facility] Erythrocyte distribution width (RBC) [Ratio] 13.9 % 11.5 - 15.0 % [facility] Hematocrit (Bld) [Volume fraction] 43.9 % 35.0 - 47.0 % [facility] Hemoglobin (Bld) [Mass/Vol] 14.2 g/dL 11.7 - 16.0 g/dL [facility] Immature granulocytes (Bld) [#/Vol] 0.0 10*3/uL NINF - 0.1 10*3/uL [facility] Immature granulocytes/100 WBC (Bld) 0.4 % 0.0 - 2.0 % [facility] Interpretation and review of laboratory results Abnormal [facility] Lymphocytes (Bld) [#/Vol] 0.9 10*3/uL Low 1.0 - 4.3 10*3/uL [facility] Lymphocytes/100 WBC (Bld) 16.8 % 15.0 - 45.0 % [facility] MCH (RBC) [Entitic mass] 29.8 pg 26.0 - 34.0 pg [facility] MCHC (RBC) [Mass/Vol] 32.3 % 30.5 - 36.0 % [facility] MCV (RBC) [Entitic vol] 92.2 fL 77.0 - 99.0 fL [facility] Monocytes (Bld) [#/Vol] 0.4 10*3/uL 0.0 - 0.9 10*3/uL [facility] Monocytes/100 WBC (Bld) 6.8 % 5.0 - 13.0 % [facility] Neutrophils (Bld) [#/Vol] 4.0 10*3/uL 1.8 - 7.5 10*3/uL [facility] Neutrophils/100 WBC (Bld) 73.3 % 38.0 - 82.0 % [facility] Nucleated RBC/100 WBC (Bld) [Ratio] 0.0 % [facility] Platelet mean volume (Bld) [Entitic vol] 9.8 fL 9.0 - 12.7 fL [facility] Comment on above: MPV is a calculated measurement using platelet volume ratio Platelets (Bld) [#/Vol] 205 10*3/uL 140 - 440 10*3/uL [facility] RBC (Bld) [#/Vol] 4.76 10*6/uL 3.80 - 5.2 0 10*6/uL [facility] WBC (Bld) [#/Vol] 5.5 10*3/uL 3.6 - 10.7 10*3/uL [facility] CBC WITH AUTO DIFFERENTIALon 09-23-2023 Basophils (Bld) [#/Vol] 0.0 10*3/uL Normal 0.0-0.2 [facility] Comment on above: Performed By: #### L [id number] ####Stove Carriage Operator: GRISELDA ROSALES ([phone])[facility] ([facility])[address] [place] [address] Basophils/100 WBC (Bld) 0.5 % Normal 0.0-2.0 [facility] [place] [facility] Comment on above: Performed By: #### L [id number] ####Stove Carriage Operator: GRISELDA ROSALES ([phone])[facility] ([facility])[address] [place] [address] Eosinophils (Bld) [#/Vol] 0.1 10*3/uL Normal 0.0-0.5 [facility] Comment on above: Performed By: #### L [id number] ####Stove Carriage Operator: GRISELDA ROSALES ([phone])[facility] ([facility])[address] [place] [address] Eosinophils/100 WBC (Bld) 2.2 % Normal 0.0-6.0 [facility] Comment on above: Performed By: #### L [id number] ####Stove Carriage Operator: GRISELDA AHYSADALGISA ([phone])[facility] ([facility])[address] [place] [address] Erythrocyte distribution width (RBC) [Ratio] 13.9 % Normal 11.5-15.0 [facility] Comment on above: Performed By: #### L [id number] ####Stove Carriage Operator: GRISELDA HAYSADALGISA ([phone])[facility] ([facility])[address] [place] [address] Hematocrit (Bld) [Volume fraction] 43.9 % Normal 35.0-47.0 [facility] Comment on above: Performed By: #### L [id number] ####Stove Carriage Operator: GRISELDA HAYSADALGISA ([phone])[facility] ([facility])[address] [place] [address] Hemoglobin (Bld) [Mass/Vol] 14.2 g/dL Normal 11.7-16.0 [facility] Comment on above: Performed By: #### L [id number] ####Stove Carriage Operator: GRISELDA ROSALES ([phone])[facility] ([facility])[address] [place] [address] IMMATURE GRANS % 0.4 % Normal 0.0-2.0 [facility] Comment on above: Performed By: #### L [id number] ####Stove Carriage Operator: GRISELDA HAYSADALGISA ([phone])[facility] ([facility])[address] [place] [address] IMMATURE GRANS ABSOLUTE 0.0 10*3/uL Normal <0.1 [facility] Comment on above: Performed By: #### L [id number] ####Stove Carriage Operator: GRISELDA SIMMONSTigistADALGISA ([phone])[facility] ([facility])[address] [place] [address] Lymphocytes (Bld) [#/Vol] 0.9 10*3/uL Low 1.0-4.3 [facility] Comment on above: Performed By: #### L [id number] ####Stove Carriage Operator: GRISELDA CONNIE ([phone])[facility] ([facility])[address] [place] [address] Lymphocytes/100 WBC (Bld) 16.8 % Normal 15.0-45.0 [facility] Comment on above: Performed By: #### L [id number] ####Stove Carriage Operator: GRISELDA SIMMONSJAKE ([phone])[facility] ([facility])[address] [place] [address] MCH (RBC) [Entitic mass] 29.8 pg Normal 26.0-34.0 [facility] Comment on above: Performed By: #### L [id number] ####Stove Carriage Operator: GRIESLDA CONNIE ([phone])[facility] ([facility])[address] [place] [address] MCHC 32.3 % Normal 30.5-36.0 [facility] Comment on above: Performed By: #### L [id number] ####Stove Carriage Operator: GRISELDA HAYSADALGISA ([phone])[facility] ([facility])[address] [place] [address] MCV (RBC) [Entitic vol] 92.2 fL Normal 77.0-99.0 [facility] [place] [facility] Comment on above: Performed By: #### L [id number] ####Stove Carriage Operator: GRISELDA HAYSADALGISA ([phone])[facility] ([facility])[address] [place] [address] Monocytes (Bld) [#/Vol] 0.4 10*3/uL Normal 0.0-0.9 [facility] Comment on above: Performed By: #### L [id number] ####Stove Carriage Operator: GRISELDA ROSALES ([phone])[facility] ([facility])[address] [place] [id number] [place] [address] Monocytes/100 WBC (Bld) 6.8 % Normal 5.0-13.0 [facility] Comment on above: Performed By: #### L [id number] ####Stove Carriage Operator: GRISELDA HAYSADALGISA ([phone])[facility] ([facility])[address] [place] [address] NEUTROPHILS ABSOLUTE 4.0 10*3/uL Normal 1.8-7.5 [facility] Comment on above: Performed By: #### L [id number] ####Stove Carriage Operator: GRISELDA HAYSADALGISA ([phone])[facility] ([facility])[address] [place] [address] Neutrophils/100 WBC (Bld) 73.3 % Normal 38.0-82.0 [facility] Comment on above: Performed By: #### L [id number] ####Stove Carriage Operator: GRISELDA HAYSADALGISA ([phone])[facility] ([facility])[address] [place] [address] NRBC 0.0 /100 WBCs Normal 0.0-2.0 [facility] Comment on above: Performed By: #### L [id number] ####Stove Carriage Operator: GRISELDA HAYSADALGISA ([phone])[facility] ([facility])[address] [place] [address] Platelet mean volume (Bld) [Entitic vol] 9.8 fL Normal 9.0-12.7 [facility] Comment on above: Result Comment: MPV is a calculated measurement using platelet volume ratio Performed By: #### L [id number] ####Stove Carriage Operator: GRISELDA ROSALES ([phone])[facility] ([facility])[address] [place] [address] Platelets (Bld) [#/Vol] 205 10*3/uL Normal 140-440 [facility] Comment on above: Performed By: #### L [id number] ####Stove Carriage Operator: GRISELDA ROSALES ([phone])[facility] ([facility])[address] [place] [address] RBC (Bld) [#/Vol] 4.76 10*6/uL Normal 3.80-5.20 [facility] Comment on above: Performed By: #### L [id number] ####Stove Carriage Operator: GRISELDA ROSALES ([phone])[facility] ([facility])[address] [place] [address] WBC (Bld) [#/Vol] 5.5 10*3/uL Normal 3.6-10.7 [facility] Comment on above: Performed By: #### L [id number] ####Stove Carriage Operator: GRISELDA ROSALES ([phone])[facility] ([facility])[address] [place] [address] Comprehensive metabolic 2000 panelon 09-23-2023 Albumin [Mass/Vol] 3.4 g/dL 3.3 - 5.5 g/dL [facility] ALP [Catalytic activity/Vol] 83 U/L 42 - 141 U/L [facility] ALT [Catalytic activity/Vol] 20 U/L 10 - 47 U/L [facility] Anion gap [Moles/Vol] 9.00 mmol/L -4.00 - 12.00 mmol/L [facility] AST [Catalytic activity/Vol] 29 U/L 11 - 38 U/L [facility] Bilirubin [Mass/Vol] 0.7 mg/dL 0.2 - 1 .6 mg/dL [facility] Calcium [Mass/Vol] 9.3 mg/dL 8.0 - 10. 3 mg/dL [facility] Chloride [Moles/Vol] 104 mmol/L [facility] CO2 [Moles/Vol] 27 mmol/L [facility] lt GFR/1.73 sq M.predicted MDRD (S/P/Bld) [Vol rate/Area] 76.0 mL/min/{1.73_m2} - PINF [facility] Glucose [Mass/Vol] 133 mg/dL High 73 - 118 mg/dL [facility] Interpretation and review of laboratory results Abnormal [facility] Potassium [Moles/Vol] 3.8 mmol/L [facility] Protein [Mass/Vol] 6.5 g/dL 6.4 - 8.1 g/dL [facility] Sodium [Moles/Vol] 140 mmol/L [facility] Urea nitrogen [Mass/Vol] 19 mg/dL 7 - 22 mg/dL [facility] Urea nitrogen/Creatinine [Mass ratio] 0.8 mg/dL 0.6 - 1.2 mg/dL [facility] Progress Noteon 09-23-2023 Progress Note Patient arrived for Q 3 week Trazimera infusion. Per patient family patient had unwitnessed fall this week. Patient did not have walker with her and fell,[facility]Patient denies injury. Encouraged patient family if [...] ambulatory with family prior to discharge. Normal [facility] US Heart TransthoracicOrdere d By: Sachin Watkins on 09-18-2023 Aortic Sinus Valsalva 3.3 cm [facility] Work Phone: Aortic Sinus Valsalva Index 1.66 cm/m2 [facility] Work Phone: AR Max Velocity PISA 3.5 m/s [facility] Work Phone: AR PHT 456.7 ms [facility] Work Phone: Ascending Aorta 3.5 cm [facility] Work Phone: Ascending Aorta Index 1.76 cm/m2 [facility] Work Phone: AV Area by Peak Velocity 2.4 cm2 [facility] Work Phone: AV Area by VTI 2.7 cm2 [facility] Work Phone: AV Mean Gradient 4 mmHg [facility] Work Phone: AV Mean Velocity [...] [facility] Work Phone: E/E' Lateral 7.[address] [facility] Work Phone: E/E' Ratio (Averaged) 8.05 [facility] Work Phone: E/E' Septal 8.[address] [facility] Work Phone: EF BP 60 % 55 - 100 % [facility] Work Phone: Fractional Shortening 2D 24 % 28 - 44 % [facility] Work Phone: Global Longitudinal Strain -17.3 % [facility] Work Phone: Interpretation and review of laboratory results Abnormal [facility] Work Phone: IVC Diameter 2.[address] [facility] Work Phone: IVSd 1.1 cm Abnormal 0.6 - 0.[address] [facility] Work Phone: LA Volume 2C 79 mL Abnormal 22 - 52 mL [facility] Work Phone: LA Volume 4C 65 mL Abnormal 22 - [address] [facility] Work Phone: LA Volume A/L [address] [facility] Work Phone: LA Volume Index 2C 40 mL/m2 Abnormal 16 - 34 mL/m2 [facility] Work Phone: LA Volume Index 4C 33 mL/m2 16 - 34 mL/m2 [facility] Work Phone: LA Volume Index A/L 39 mL/m2 16 - 34 mL/m2 [facility] Work Phone: LV E' Lateral Velocity 7 cm/s [facility] Work Phone: LV E' Septal Velocity 6 cm/s [facility] Work Phone: LV EDV A2C [address] [facility] Work Phone: LV EDV A4C 66 mL [facility] Work Phone: LV EDV BP 77 mL 56 - [address] [facility] Work Phone: LV EDV Index A2C 44 mL/m2 [facility] Work Phone: LV EDV Index A4C 33 mL/m2 [facility] Work Phone: LV EDV Index BP 39 mL/m2 [facility] Work Phone: LV Ejection Fraction A2C 58 % [facility] Work Phone: LV Ejection Fraction A4C 60 % [facility] Work Phone: LV ESV A2C 37 mL [facility] Work Phone: LV ESV A4C 26 mL [facility] Work Phone: LV ESV BP 31 mL 19 - 49 mL [facility] Work Phone: LV ESV Index A2C 19 mL/m2 [facility] Work Phone: LV ESV Index A4C 13 mL/m2 [facility] Work Phone: LV ESV Index BP 16 mL/m2 [facility] Work Phone: LV Mass 2D 96.9 g 67 - 162 g [facility] Work Phone: LV Mass 2D Index 48.7 g/m2 43 - 95 g/m2 [facility] [employer] Work Phone: LV RWT Ratio 0.38 [facility] [employer] Work Phone: LVIDd 3.7 cm Abnormal 3.9 - 5.3 cm [facility] Work Phone: LVIDd Index 1.86 cm/m2 [facility] [employer] Work Phone: LVIDs 2.8 cm [facility] [employer] Work Phone: LVIDs Index 1.41 cm/m2 [facility] [employer] Work Phone: LVOT Area 3.1 cm2 [facility] [employer] Work Phone: LVOT Cardiac Output 5.4 liter/minute [facility] [employer] Work Phone: LVOT Diameter 2.0 cm [facility] Work Phone: LVOT Mean Gradient 2 mmHg [facility] [employer] Work Phone: LVOT Peak Gradient 4 mmHg [facility] [employer] Work Phone: LVOT Peak Velocity 1.0 m/s [facility] [employer] Work Phone: LVOT Stroke Volume Index 30.1 mL/m2 [facility] [employer] Work Phone: LVOT SV 60.0 ml [facility] [employer] Work Phone: LVOT VTI 19.1 cm [facility] [employer] Work Phone: LVOT:AV VTI Index 0.84 [facility] e[facility] Work Phone: LVPWd 0.7 cm 0.6 - 0.9 cm [facility] [employer] Work Phone: MV A Velocity 0.78 m/s [facility] Work Phone: MV E Velocity 0.52 m/s [facility] Work Phone: MV E Wave Deceleration Time 275.7 ms [facility] [employer] Phone: MV E/A 0.[address] [facility] Phone: RV Free Wall Peak S' 15 cm/s [facility] [employer] Phone: Sinotubular Junction 2.[address] [facility] [employer] Phone: TAPSE 2.0 cm 1.[address] [facility] Phone: [facility] Phone: Heart Transthoracicon Left Ventricle: Left ventricle [...] Additional Conclusions No significant valvular abnormalities. CV [facility] Hospital Encounteron 024 Hospital Encounter [id number] Madiha Perales 1945 F Date Provider Department Center 09/12/2023 [id number] DIE[facility] RAD ON None Family History Problem Relation Age of Onset Breast cancer Mother Lung cancer Father Colon cancer Paternal Grandfather Family Status - Relation Status Age at Mother Father Paternal Grandfather Level of Service:07898 [place] OFFICE/OUTPT VISIT,PROCEDURE ONLY Reason for Visit and Comments: Follow-up [970836] Normal [facility] Nursing Noteon 09-12-2023 Nursing Note Here with using walker for follow up.Appetite good states she just doesn't drink enough water. Energy normal for her rests frequently. States skin is doing well and continues to moisturize with aloe and coconut oil. Recent bone density test done. Has echo coming up and continues on Trazimera every 3 weeks. Normal [facility] Progress Noteon 09-12-2023 Progress Note RADIATION ONCOLOGY FOLLOW UP PATIENT: Madiha Perales DATE OF SERVICE: 09/12/2023 : 1945 AGE: 78 y.o. PRIMARY SITE AND HISTOPATHOLOGY: Left breast, grade 3 invasive ductal carcinoma, ER positive, FL positive, HER2 positive. STAGE: cT1b N0 M0, [...] the left breast. Biopsy was performed at [facility] on 01/28/2023. This revealed grade 3 invasive ductal carcinoma measuring at least 8 mm in dimension. ER positive at 100%, FL positive at 70% and HER2 positive at [...] current facili (more content not included)... Normal [facility] DEXA BONE DENSITY AXIAL [facility] PRATIKVijay 09-05-2023 DEXA BONE DENSITY [...] dual energy x-ray observed absorptiometry device - [employer] W. Regions of interest were obtained [...] Electronically Signed Date/Time: 09/05/2023 3:32 PM EDT [facility] DXA Skeletal system.axial Vi ews [...] Electronically Signed Date/Time: 09/05/2023 3:32 PM T [facility] RADIOLOGY SYSTEM Patient Name[facility] 1945 [id number] Exam Date/Time: 09/05/2023 10:04 Procedure: DEXA BONE [...] 0.3 Z-score: 2.2 Comparison from prior examination:N/A [facility] RADIOLOGY SYSTEM Brayden Green MD - 09/05/2023 Patient Name: MADIHA PERALES : 1945 [id number] Exam Date/Time: 09/05/2023 10:04 Procedure: DEXA BONE [...] Electronically Signed Date/Time: 09/05/2023 3:32 PM EDT [employer] Radiology Study observation (narrative) [facility] DXA Skeletal system.axial Vi ews for bone densityOrdered By: Brayden Green on 09-05-2023 [employer] Work Phone: CBC W Auto Differential pane l (Bld)on 09-02-2023 Basophils (Bld) [#/Vol] 0.0 10*3/uL 0.0 - 0.2 10*3/uL [facility] Basophils (Bld) [#/Vol] 0 10*3/uL 0.0 - 0.2 10*3/uL [facility] Basophils/100 WBC (Bld) 0.6 % 0.0 - 2.0 % [facility] Eosinophils (Bld) [#/Vol] 0.2 10*3/uL 0.0 - 0.5 10*3/uL [facility] Eosinophils/100 WBC (Bld) 3.1 % 0.0 - 6.0 % [facility] Erythrocyte distribution width (RBC) [Ratio] 13.8 % 11.5 - 15.0 % [facility] Hematocrit (Bld) [Volume fraction] 42.0 % 35.0 - 47.0 % [facility] Hematocrit (Bld) [Volume fraction] 42 % 35.0 - 47.0 % [facility] Hemoglobin (Bld) [Mass/Vol] 13.7 g/dL 11.7 - 16.0 g/dL [facility] Immature granulocytes (Bld) [#/Vol] 0.0 10*3/uL NINF - 0.1 10*3/uL [facility] Immature granulocytes (Bld) [#/Vol] 0 10*3/uL NINF - 0.1 10*3/uL [facility] Immature granulocytes/100 WBC (Bld) 0.4 % 0.0 - 2.0 % [facility] Interpretation and review of laboratory results Abnormal [facility] Lymphocytes (Bld) [#/Vol] 0.7 10*3/uL Low 1.0 - 4.3 10*3/uL [facility] Lymphocytes/100 WBC (Bld) 14.3 % Low 15.0 - 45.0 % [facility] MCH (RBC) [Entitic mass] 30.4 pg 26.0 - 34.0 pg [facility] MCHC (RBC) [Mass/Vol] 32.6 % 30.5 - 36.0 % [facility] MCV (RBC) [Entitic vol] 93.3 fL 77.0 - 99.0 fL [facility] [employer] Monocytes (Bld) [#/Vol] 0.4 10*3/uL 0.0 - 0.9 10*3/uL [facility] Monocytes/100 WBC (Bld) 8.4 % 5.0 - 13.0 % [facility] Neutrophils (Bld) [#/Vol] 3.7 10*3/uL 1.8 - 7.5 10*3/uL [facility] Neutrophils/100 WBC (Bld) 73.2 % 38.0 - 82.0 % [facility] Nucleated RBC/100 WBC (Bld) [Ratio] 0.0 % [facility] Nucleated RBC/100 WBC (Bld) [Ratio] 0 % [facility] Platelet mean volume (Bld) [Entitic vol] 9.2 fL 9.0 - 12.7 fL [facility] Comment on above: MPV is a calculated measurement using platelet volume ratio Platelets (Bld) [#/Vol] 188 10*3/uL 140 - 440 10*3/uL [facility] RBC (Bld) [#/Vol] 4.50 10*6/uL 3.80 - 5.2 0 10*6/uL [facility] RBC (Bld) [#/Vol] 4.5 10*6/uL 3.80 - 5.2 0 10*6/uL [facility] WBC (Bld) [#/Vol] 5.1 10*3/uL 3.6 - 10.7 10*3/uL [facility] CBC WITH AUTO DIFFERENTIALon 09-02-2023 Basophils (Bld) [#/Vol] 0.0 10*3/uL Normal 0.0-0.2 [facility] Comment on above: Performed By: #### L [id number] #### Stove Carriage Operator: GRISELDA ROSALES ([phone]) [facility] ([facility]) [address] [place] [address] [place] Basophils/100 WBC (Bld) 0.6 % Normal 0.0-2.0 [facility] Comment on above: Performed By: #### L [id number] #### Stove Carriage Operator: GRISELDA ROSALES ([phone]) [facility] ([facility]) [address] [place] [address] [place] Eosinophils (Bld) [#/Vol] 0.2 10*3/uL Normal 0.0-0.5 [facility] Comment on above: Performed By: #### L [id number] #### Stove Carriage Operator: GRISELDA ROSALES ([phone]) [facility] [address] [place] [address] Eosinophils/100 WBC (Bld) 3.1 % Normal 0.0-6.0 [facility] Comment on above: Performed By: #### L [id number] #### Stove Carriage Operator: GRISELDA ROSALES ([phone]) [facility] ([facility]) [address] [place] [address] Erythrocyte distribution width (RBC) [Ratio] 13.8 % Normal 11.5-15.0 [facility] Comment on above: Performed By: #### L [id number] #### Stove Carriage Operator: GRISELDAJAZMYN ROSALES ([phone]) [facility] ([facility]) [address] [place] [address] Hematocrit (Bld) [Volume fraction] 42.0 % Normal 35.0-47.0 [facility] Comment on above: Performed By: #### L [id number] #### Stove Carriage Operator: GRISELDA CONNIE ([phone]) [facility] ([facility]) [address] [place] [address] Hemoglobin (Bld) [Mass/Vol] 13.7 g/dL Normal 11.7-16.0 [facility] Comment on above: Performed By: #### L [id number] #### Stove Carriage Operator: GRISELDAJAZMYN ROSALES ([phone]) [facility] ([facility]) [address] [place] [address] IMMATURE GRANS % 0.4 % Normal 0.0-2.0 [facility] Comment on above: Performed By: #### L [id number] #### Stove Carriage Operator: GRISELDA CONNIE ([phone]) [facility] ([facility]) [address] [place] [address] IMMATURE GRANS ABSOLUTE 0.0 10*3/uL Normal <0.1 [facility] Comment on above: Performed By: #### L [id number] #### Stove Carriage Operator: GRISELDA ROSALES ([phone]) [facility] [address] [place] [address] Lymphocytes (Bld) [#/Vol] 0.7 10*3/uL Low 1.0-4.3 [facility] Comment on above: Performed By: #### L [id number] #### Stove Carriage Operator: GRISELDA ROSALES ([phone]) [facility] [address] [place] [address] Lymphocytes/100 WBC (Bld) 14.3 % Low 15.0-45.0 [facility] Comment on above: Performed By: #### L [id number] #### Stove Carriage Operator: GRISELDA ROSALES ([phone]) [facility] [address] [place] [address] MCH (RBC) [Entitic mass] 30.4 pg Normal 26.0-34.0 [facility] Comment on above: Performed By: #### L [id number] #### Stove Carriage Operator: GRISELDA ROSALES ([phone]) [facility] [address] [place] [address] MCHC 32.6 % Normal 30.5-36.0 [facility] Comment on above: Performed By: #### L [id number] #### Stove Carriage Operator: GRISELDA ROSALES ([phone]) [facility] [address] [place] [address] MCV (RBC) [Entitic vol] 93.3 fL Normal 77.0-99.0 [facility] Comment on above: Performed By: #### L [id number] #### Stove Carriage Operator: GRISELDA ROSALES ([phone]) [facility] [address] [place] [address] Monocytes (Bld) [#/Vol] 0.4 10*3/uL Normal 0.0-0.9 [facility] Comment on above: Performed By: #### L [id number] #### Stove Carriage Operator: GRISELDA ROSALES ([phone]) [facility] ([facility]) [address] [place] [address] Monocytes/100 WBC (Bld) 8.4 % Normal 5.0-13.0 [facility] Comment on above: Performed By: #### L [id number] #### Stove Carriage Operator: GRISELDA ROSALES ([phone]) [facility] ([facility]) [address] [place] [address] NEUTROPHILS ABSOLUTE 3.7 10*3/uL Normal 1.8-7.5 [facility] Comment on above: Performed By: #### L [id number] #### Stove Carriage Operator: GRISELDA ROSALES ([phone]) [facility] ([facility]) [address] [place] [address] Neutrophils/100 WBC (Bld) 73.2 % Normal 38.0-82.0 [facility] Comment on above: Performed By: #### L [id number] #### Stove Carriage Operator: GRISELDA ROSALES ([phone]) [facility] ([facility]) [address] [place] [address] NRBC 0.0 /100 WBCs Normal 0.0-2.0 [facility] Comment on above: Performed By: #### L [id number] #### Stove Carriage Operator: GRISELDA ROSALES ([phone]) [facility] (MLAB) [address] [place] [address] Platelet mean volume (Bld) [Entitic vol] 9.2 fL Normal 9.0-12.7 [facility] Comment on above: Result Comment: MPV is a calculated measurement using platelet volume ratio Performed By: #### L [id number] #### Stove Carriage Operator: GRISELDA ROSALES ([phone]) [facility] ([facility]) [address] [place] [address] [place] Platelets (Bld) [#/Vol] 188 10*3/uL Normal 140-440 [facility] Comment on above: Performed By: #### L [id number] #### Stove Carriage Operator: GRISELDA SIMMONSTigistADALGISA ([phone]) [facility] ([facility]) [address] [place] [address] RBC (Bld) [#/Vol] 4.50 10*6/uL Normal 3.80-5.20 [facility] Comment on above: Performed By: #### L [id number] #### Stove Carriage Operator: GRISELDA SIMMONSTigistADALGISA ([phone]) [facility] [address] [place] [address] WBC (Bld) [#/Vol] 5.1 10*3/uL Normal 3.6-10.7 [facility] Comment on above: Performed By: #### L [id number] #### Stove Carriage Operator: GRISELDA ROSALES ([phone]) [facility] [address] [place] [address] Comprehensive metabolic 2000 panelOrdered By: Annie Montalvo on 09-02-2023 Albumin [Mass/Vol] 3.3 g/dL 3.3 - 5.5 g/dL [facility] ALP [Catalytic activity/Vol] 75 U/L 42 - 141 U/L [facility] ALT [Catalytic activity/Vol] 16 U/L 10 - 47 U/L [facility] Anion gap [Moles/Vol] 8.00 mmol/L -4.00 - 12.00 mmol/L [facility] Anion gap [Moles/Vol] 8 mmol/L -4.00 - 12.00 mmol/L [facility] AST [Catalytic activity/Vol] 29 U/L 11 - 38 U/L [facility] Bilirubin [Mass/Vol] 0.6 mg/dL 0.2 - 1 .6 mg/dL [facility] Calcium [Mass/Vol] 9.3 mg/dL 8.0 - 10. 3 mg/dL [facility] Chloride [Moles/Vol] 108 mmol/L [facility] CO2 [Moles/Vol] 27 mmol/L [facility] lth GFR/1.73 sq M.predicted MDRD (S/P/Bld) [Vol rate/Area] 76.0 mL/min/{1.73_m2[facility] GFR/1.73 sq M.predicted MDRD (S/P/Bld) [Vol rate/Area] 76 mL/min/{1.73_m2} [facility] Glucose [Mass/Vol] 132 mg/dL High 73 - 118 mg/dL [facility] Interpretation and review of laboratory results Abnormal [facility] Potassium [Moles/Vol] 3.8 mmol/L [facility] Protein [Mass/Vol] 6.4 g/dL 6.4 - 8.1 g/dL [facility] Sodium [Moles/Vol] 143 mmol/L [facility] Urea nitrogen [Mass/Vol] 15 mg/dL 7 - 22 mg/dL [facility] Urea nitrogen/Creatinine [Mass ratio] 0.8 mg/dL 0.6 - 1.2 mg/dL [facility] Office Visiton 09-02-2023 Follow-up visit [id number] Madiha Perales 1945 F Date Provider Department Center 09/02/2023 [id number] ESCOBEDO [facility] ONC None Family History Problem Relation Age of Onset Breast cancer Mother Lung cancer Father Colon cancer Paternal Grandfather Family Status - Relation Status Age at Mother Father Paternal Grandfather Level of Service:57790 [place] OFFICE/OUTPATIENT ESTABLISHED MOD MDM 30 MIN Reason for Visit and Comments: Follow-up [767045] Normal [facility] Progress Noteon 09-02-2023 Progress Note Patient arrived [...] cath intact. Patient ambulatory upon discharge. Normal [facility] Progress Note Hematology/Oncology Office Visit Oncology History: 1) stage 1A left breast cancer, invasive ductal carcinoma grade 3. ER+ FL+ HER2+. cT1b N0 M0; pT1c N0 M0, diagnosed 01/28/23. - Patient is a 78 yo F who presented with an abnormal screening mammogram of the upper outer quadrant of the left breast on 11/27/22. Diagnostic imaging and ultrasound were performed on 01/21/2023: a 0.9 x 0.9 x 1 cm irregular mass in the left breast. 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 The patient underwent lumpectomy and sentinel node removal on 02/18/[address] Choi at [facility]: pathology revealed grade 3 invasive ductal carcinoma measuring 1.9 cm. There was focal DCIS and extensive lymphovascular invasion. Margins were negative for invasive and in situ component at greater than 2 mm. 6 axillary nodes were removed: 5 sentinel and 1 nonsentinel. All were negative.Ban harrison staged T1CN0. - she was referred to [facility] for medical and radiation oncology. Her case [...] back pain Breast calcifications on mammogram Dementia ([facility]) Depression Eczema H/O colonoscopy Hemorrhoid Hx of rosacea Lower extremity edema MARCY (obstructive sleep apnea) The patient wears CPAP Parkinson disease Stroke ([facility]) 2009 Torn meniscus Uterine cancer ([facility]) ([facility]) 2005 Past Surgical History: Procedure Laterality Date [...] left breast in female, estrogen receptor positive ([facility]) ([facility]) 03/18/2023 Edema of both lower extremities 02/05/2023 [...] calcifications on mammogram 07/24/2013 Cerebrovascular accident (CVA) ([facility]) 06/23/2009 Social History Tobacco Use Smoking status: [...] mouth in the (more content not included)... [facility] 81on 08-12-2023 81 RADIATION ONCOLOGY TREATMENT SUMMARY PATIENT: Madiha Perales DATE OF SERVICE: 08/12/2023 : 1945 AGE: 79 y.o. PRIMARY SITE AND HISTOPATHOLOGY: Left breast, grade 3 invasive ductal carcinoma, ER positive, FL positive, HER2 positive. STAGE: cT1b N0 M0, [...] the left breast. Biopsy was performed at [facility] on 01/28/2023. This revealed grade 3 invasive ductal carcinoma measuring at least 8 mm in dimension. ER positive at 100%, FL positive at 70% and HER2 positive at [...] appointment was made. Vicki Diego MD [facility] Department of Radiation Oncology is an Accredited Facility of the [employer] [employer] (ACR). This document was [...] addressed to the provider for clarification. Normal [facility] CBC W Auto Differential pane l (Bld)Ordered By: Radha Rain on 08-12-2023 Basophils (Bld) [#/Vol] 0.0 10*3/uL 0.0 - 0.2 10*3/uL [facility] Basophils (Bld) [#/Vol] 0 10*3/uL 0.0 - 0.2 10*3/uL [facility] Basophils/100 WBC (Bld) 0.4 % 0.0 - 2.0 % [facility] Eosinophils (Bld) [#/Vol] 0.1 10*3/uL 0.0 - 0.5 10*3/uL [facility] Eosinophils/100 WBC (Bld) 2.1 % 1.0 - 6.0 % [facility] Erythrocyte distribution width (RBC) [Ratio] 14.0 % 11.5 - 14.5 % [facility] Erythrocyte distribution width (RBC) [Ratio] 14 % 11.5 - 14.5 % [facility] Hematocrit (Bld) [Volume fraction] 41.2 % 35.0 - 47.0 % [facility] Hemoglobin (Bld) [Mass/Vol] 13.6 g/dL 11.7 - 16.0 g/dL [facility] Immature granulocytes (Bld) [#/Vol] 0.0 10*3/uL NINF - 0.0 10*3/uL [facility] Immature granulocytes (Bld) [#/Vol] 0 10*3/uL NINF - 0.0 10*3/uL [facility] Immature granulocytes/100 WBC (Bld) 0.6 % High NINF - 0.0 % [facility] Interpretation and review of laboratory results Abnormal [facility] Lymphocytes (Bld) [#/Vol] 0.9 10*3/uL Low 1.0 - 4.3 10*3/uL [facility] Lymphocytes/100 WBC (Bld) 12.6 % Low 20.0 - 40.0 % [facility] MCH (RBC) [Entitic mass] 30.7 pg 26.0 - 34.0 pg [facility] MCHC (RBC) [Mass/Vol] 33.0 % 32.0 - 36.0 % [facility] MCHC (RBC) [Mass/Vol] 33 % 32.0 - 36.0 % [facility] MCV (RBC) [Entitic vol] 93.0 fL 80.0 - 98.0 fL [facility] MCV (RBC) [Entitic vol] 93 fL 80.0 - 98.0 fL [facility] Monocytes (Bld) [#/Vol] 0.5 10*3/uL 0.0 - 0.8 10*3/uL [facility] Monocytes/100 WBC (Bld) 6.7 % 2.0 - 10.0 % [facility] Neutrophils (Bld) [#/Vol] 5.2 10*3/uL 1.8 - 7.0 10*3/uL [facility] Neutrophils/100 WBC (Bld) 77.6 % 40.0 - 80.0 % [facility] Platelet mean volume (Bld) [Entitic vol] 9.9 fL 7.4 - 12.4 fL [facility] Comment on above: MPV is a calculated measurement using platelet volume ratio Platelets (Bld) [#/Vol] 224 10*3/uL 140 - 440 10*3/uL [facility] RBC (Bld) [#/Vol] 4.43 10*6/uL 3.8 - 5.20 10*6/uL [facility] WBC (Bld) [#/Vol] 6.7 10*3/uL 3.6 - 10.7 10*3/uL [facility] CBC WITH AUTO DIFFERENTIALon 08-12-2023 Basophils (Bld) [#/Vol] 0.0 10*3/uL Normal 0.0-0.2 [facility] Comment on above: Performed By: #### L [id number] ####Stove Carriage Operator: GRISELDA ROSALES ([phone])[facility] ([facility] [place] [address] Basophils/100 WBC (Bld) 0.4 % Normal 0.0-2.0 [facility] Comment on above: Performed By: #### L [id number] ####Stove Carriage Operator: GRISELDA ROSALES ([phone])[facility] ([facility])[address] [place] [address] Eosinophils (Bld) [#/Vol] 0.1 10*3/uL Normal 0.0-0.5 [facility] Comment on above: Performed By: #### L [id number] ####Stove Carriage Operator: GRISELDA ROSALES ([phone])[facility] [place] [address] Eosinophils/100 WBC (Bld) 2.1 % Normal 1.0-6.0 [facility] Comment on above: Performed By: #### L [id number] ####Stove Carriage Operator: GRISELDA ROSALES ([phone])[facility] ([facility])[address] [place] [address] Erythrocyte distribution width (RBC) [Ratio] 14.0 % Normal 11.5-14.5 [facility] Comment on above: Performed By: #### L [id number] ####Stove Carriage Operator: GRISELDAJAZMYN ROSALES ([phone])[facility] ([facility] [place] [address] ERYTHROCYTE MEAN CORPUSCULAR HEMOGLOBIN CONCENTRATION (G/DL) BY AUTOMATED 33.0 % Normal 32.0-36.0 [facility] Comment on above: Performed By: #### L [id number] ####Stove Carriage Operator: GRISELDA CONNIE ([phone])[facility] ([facility])[address] [place] [address] Hematocrit (Bld) [Volume fraction] 41.2 % Normal 35.0-47.0 [facility] Comment on above: Performed By: #### L [id number] ####Stove Carriage Operator: GRISELDAJAZMYN ROSALES ([phone])[facility] ([facility])[address] [place] [address] Hemoglobin (Bld) [Mass/Vol] 13.6 g/dL Normal 11.7-16.0 [facility] Comment on above: Performed By: #### L [id number] ####Stove Carriage Operator: GRISELDAJAZMYN ROSALES ([phone])[facility] ([facility])[address] [place] [address] IMMATURE GRANS (10*3/UL) IN BLOOD BY AUTOMATED COUNT 0.0 10*3/uL Normal <=0.0 [facility] Comment on above: Performed By: #### L [id number] ####Stove Carriage Operator: GRISELDA CONNIE ([phone])[facility] ([facility] [place] [address] IMMATURE GRANS/100 LEUKOCYTES IN BLOOD BY AUTOMATED COUNT 0.6 % High <=0.0 [facility] Comment on above: Performed By: #### L [id number] ####Stove Carriage Operator: GRISELDA SIMMONSJAKE ([phone])[facility] [place] [address] Lymphocytes (Bld) [#/Vol] 0.9 10*3/uL Low 1.0-4.3 [facility] Comment on above: Performed By: #### L [id number] ####Stove Carriage Operator: GRISELDA ROSALES ([phone])[facility] ([facility])[address] [place] [address] Lymphocytes/100 WBC (Bld) 12.6 % Low 20.0-40.0 [facility] Comment on above: Performed By: #### L [id number] ####Stove Carriage Operator: GRISELDA HAYSADALGISA ([phone])[facility] ([facility])[address] [place] [address] MCH (RBC) [Entitic mass] 30.7 pg Normal 26.0-34.0 [facility] Comment on above: Performed By: #### L [id number] ####Stove Carriage Operator: GRISELDA HAYSADALGISA ([phone])[facility] ([facility])[address] [place] [address] MCV (RBC) [Entitic vol] 93.0 fL Normal 80.0-98.0 [facility] Comment on above: Performed By: #### L [id number] ####Stove Carriage Operator: GRISELDA ROSALES ([phone])[facility] ([facility])[address] [place] [address] Monocytes (Bld) [#/Vol] 0.5 10*3/uL Normal 0.0-0.8 [facility] Comment on above: Performed By: #### L [id number] ####Stove Carriage Operator: GRISELDA ROSALES ([phone])[facility] ([facility])[address] [place] [address] Monocytes/100 WBC (Bld) 6.7 % Normal 2.0-10.0 [facility] Comment on above: Performed By: #### L [id number] ####Stove Carriage Operator: GRISELDA ROSALES ([phone])[facility] ([facility])[address] [place] [address] Neutrophils (Bld) [#/Vol] 5.2 10*3/uL Normal 1.8-7.0 [facility] Comment on above: Performed By: #### L [id number] ####Stove Carriage Operator: GRISELDA ROSALES ([phone])[facility] ([facility])[address] [place] [address] Neutrophils/100 WBC (Bld) 77.6 % Normal 40.0-80.0 [facility] Comment on above: Performed By: #### L [id number] ####Stove Carriage Operator: GRISELDA ROSALES ([phone])[facility] ([facility])[address] [place] [address] Platelet mean volume (Bld) [Entitic vol] 9.9 fL Normal 7.4-12.4 [facility] Comment on above: Result Comment: MPV is a calculated measurement using platelet volume ratio Performed By: #### L [id number] ####Stove Carriage Operator: GRISELDA ROSALES ([phone])[facility] ([facility])[address] [place] [address] Platelets (Bld) [#/Vol] 224 10*3/uL Normal 140-440 [facility] Comment on above: Performed By: #### L [id number] ####Stove Carriage Operator: GRISELDA ROSALES ([phone])[facility] [place] [address] RBC (Bld) [#/Vol] 4.43 10*6/uL Normal 3.8-5.20 [facility] Comment on above: Performed By: #### L [id number] ####Stove Carriage Operator: GRISELDA ROSALES ([phone])[facility] ([facility])[address] [place] [address] WBC (Bld) [#/Vol] 6.7 10*3/uL Normal 3.6-10.7 [facility] Comment on above: Performed By: #### L [id number] ####Stove Carriage Operator: GRISELDA ROSALES ([phone])[facility] ([facility])[address] [place] [address] COMPREHENSIVE METABOLIC PANE L, WHOLE BLOODon 08-12-2023 Albumin [Mass/Vol] 3.3 g/dL Normal 3.3-5.1 [facility] Comment on above: Performed By: #### L [id number] ####Stove Carriage Operator: GRISELDA ROSALES ([phone])[facility] [place] [address] ALP [Catalytic activity/Vol] 77 U/L Normal 28-108 [facility] Comment on above: Performed By: #### L [id number] ####Stove Carriage Operator: GRISELDA ROSALES ([phone])[facility] ([facility])[address] [place] [address] ALT [Catalytic activity/Vol] 29 U/L Normal 14-54 [facility] Comment on above: Performed By: #### L [id number] ####Stove Carriage Operator: GRISELDA ROSALES ([phone])[facility] [place] [address] ANION GAP, WHOLE BLOOD-ANIPI 4.00 mmol/L Normal 3.00-13.00 [facility] Comment on above: Performed By: #### L [id number] ####Stove Carriage Operator: GRISELDA ROSALES ([phone])[facility] ([facility])[address] [place] [address] AST [Catalytic activity/Vol] 38 U/L Normal 15-41 [facility] Comment on above: Performed By: #### L [id number] ####Stove Carriage Operator: GRISELDA ROSALES ([phone])[facility] [place] [address] Bilirubin [Mass/Vol] 0.6 mg/dL Normal 0.0-1.3 [facility] Comment on above: Performed By: #### L [id number] ####Stove Carriage Operator: GRISELDA ROSALES ([phone])[facility])[address] [place] [address] [place] Calcium [Mass/Vol] 9.0 mg/dL Normal 8.1-10.1 [facility] Comment on above: Performed By: #### L [id number] ####Stove Carriage Operator: GRISELDA ROSALES ([phone])[facility] ([facility])[address] [place] [address] Chloride [Moles/Vol] 108 mmol/L Normal 98-114 [facility] Comment on above: Performed By: #### L [id number] ####Stove Carriage Operator: GRISELDA ROSALES ([phone])[facility] [place] [address] CO2 [Moles/Vol] 28 mmol/L Normal 21-29 [facility] Comment on above: Performed By: #### L [id number] ####Stove Carriage Operator: GRISELDA ROSALES ([phone])[facility] [place] [address] Creatinine [Mass/Vol] 0.7 mg/dL Normal 0.6-1.4 [facility] Comment on above: Performed By: #### L [id number] ####Stove Carriage Operator: GRISELDA ROSALES ([phone])[facility] [place] [address] EGFR, WHOLE BLOOD-THUY 89.2 mL/min/1.73m*2 Normal >60.0 [facility] Comment on above: Result Comment: Calc ulation based on the Chronic Kidney Disease Epidemiology Collaboration (CKD-EPI) equation refit without adjustment for race Performed By: #### L [id number] ####Stove Carriage Operator: GRISELDA ROSALES ([phone])[facility] [place] [address] Glucose [Mass/Vol] 128 mg/dL High 67-100 [facility] Comment on above: Performed By: #### L [id number] ####Stove Carriage Operator: GRISELDA ROSALES ([phone])[facility] ([facility])[address] [place] [address] Potassium [Moles/Vol] 4.5 mmol/L Normal 3.4-5.1 [facility] Comment on above: Performed By: #### L [id number] ####Stove Carriage Operator: GRISELDA ROSALES ([phone])[facility] [place] [address] Protein [Mass/Vol] 6.5 g/dL Normal 6.0-8.1 [facility] Comment on above: Performed By: #### L [id number] ####Stove Carriage Operator: GRISELDA ROSALES ([phone])[facility] [place] [address] Sodium [Moles/Vol] 140 mmol/L Normal 133-145 [facility] Comment on above: Performed By: #### L [id number] ####Stove Carriage Operator: GRISELDA ROSALES ([phone])[facility] [place] [address] Urea nitrogen [Mass/Vol] 17 mg/dL Normal 4-22 [facility] Comment on above: Performed By: #### L [id number] ####Stove Carriage Operator: GRISELDA ROSALES ([phone])[facility] ([facility])[address] [place] [address] Progress Noteon 08-12-2023 Progress Note Patient arrived for delayed cycle 4 Q 3 week Trazimera. Patient still has cough on ATB. Reports feels well. Encouraged to call PCP to follow up with cough. PIV inserted, blood for CBC and CMP obtained. Infusion complete. PIV d/c'd angio cath intact. Patient ambulatory upon discharge. Normal [facility] CBC W Auto Differential pane l (Bld)Ordered By: Radha Rain on 08-05-2023 Basophils (Bld) [#/Vol] 0.1 10*3/uL 0.0 - 0.2 10*3/uL [facility] Basophils/100 WBC (Bld) 0.8 % 0.0 - 2.0 % [facility] Eosinophils (Bld) [#/Vol] 0.2 10*3/uL 0.0 - 0.5 10*3/uL [facility] Eosinophils/100 WBC (Bld) 3.7 % 1.0 - 6.0 % [facility] Erythrocyte distribution width (RBC) [Ratio] 14.3 % 11.5 - 14.5 % [facility] Hematocrit (Bld) [Volume fraction] 41.6 % 35.0 - 47.0 % [facility] Hemoglobin (Bld) [Mass/Vol] 14.0 g/dL 11.7 - 16.0 g/dL [facility] Immature granulocytes (Bld) [#/Vol] 0.0 10*3/uL NINF - 0.0 10*3/uL [facility] Immature granulocytes/100 WBC (Bld) 0.3 % High NINF - 0.0 % [facility] Interpretation and review of laboratory results Abnormal [facility] Lymphocytes (Bld) [#/Vol] 0.8 10*3/uL Low 1.0 - 4.3 10*3/uL [facility] Lymphocytes/100 WBC (Bld) 12.3 % Low 20.0 - 40.0 % [facility] MCH (RBC) [Entitic mass] 31.3 pg 26.0 - 34.0 pg [facility] MCHC (RBC) [Mass/Vol] 33.7 % 32.0 - 36.0 % [facility] MCV (RBC) [Entitic vol] 93.1 fL 80.0 - 98.0 fL [facility] Monocytes (Bld) [#/Vol] 0.5 10*3/uL 0.0 - 0.8 10*3/uL [facility] Monocytes/100 WBC (Bld) 8.3 % 2.0 - 10.0 % [facility] Neutrophils (Bld) [#/Vol] 4.9 10*3/uL 1.8 - 7.0 10*3/uL [facility] Neutrophils/100 WBC (Bld) 74.6 % 40.0 - 80.0 % [facility] Platelet mean volume (Bld) [Entitic vol] 9.3 fL 7.4 - 12.4 fL [facility] Comment on above: MPV is a calculated measurement using platelet volume ratio Platelets (Bld) [#/Vol] 205 10*3/uL 140 - 440 10*3/uL [facility] RBC (Bld) [#/Vol] 4.47 10*6/uL 3.8 - 5.20 10*6/uL [facility] WBC (Bld) [#/Vol] 6.5 10*3/uL 3.6 - 10.7 10*3/uL [facility] US THYROIDon 07-31-2023 US THYROID Interpreted By: Kayode Beal, STUDY: US THYROID; 07/31/2023 1:58 pm INDICATION: Signs/Symptoms:LEFT SIDETHYROID NODULES, PRESENT FOR YEARS, SEEN AGAIN INCIDENTALLY ON CT OF CHEST. COMPARISON: None. ACCESSION NUMBER(S): [id number] ORDERING CLINICIAN: MARIE DEVI TECHNIQUE: Multiple ultrasonographic [...] are based on the recommendations of the [place] [employer] TI-RADS grading system. ACR [...] Kayode Beal 08/01/2023 8:10 PM Dictation workstation: [id number] [facility] US Thyroid glandon These images are [...] [Mass/Vol] 33.1 % 32.0 - 36.0 % [facility] MCV (RBC) [Entitic vol] 94.0 fL 80.0 - 98.0 fL [facility] MCV (RBC) [Entitic vol] 94 fL 80.0 - 98.0 fL [facility] Monocytes (Bld) [#/Vol] 0.4 10*3/uL 0.0 - 0.8 10*3/uL [facility] Monocytes/100 WBC (Bld) 6.4 % 2.0 - 10.0 % [facility] Neutrophils (Bld) [#/Vol] 4.3 10*3/uL 1.8 - 7.0 10*3/uL [facility] Neutrophils/100 WBC (Bld) 71.8 % 40.0 - 80.0 % [facility] Platelet mean volume (Bld) [Entitic vol] 9.3 fL 7.4 - 12.4 fL [facility] Comment on above: MPV is a calculated measurement using platelet volume ratio Platelets (Bld) [#/Vol] 229 10*3/uL 140 - 440 10*3/uL [facility] RBC (Bld) [#/Vol] 4.31 10*6/uL 3.8 - 5.20 10*6/uL [facility] WBC (Bld) [#/Vol] 5.9 10*3/uL 3.6 - 10.7 10*3/uL [facility] Comprehensive metabolic 1998 panelon 07-15-2023 Albumin [Mass/Vol] 4.0 g/dL 3.5 - 5.0 g/dL [facility] Albumin [Mass/Vol] 4 g/dL 3.5 - 5.0 g/dL [facility] ALP [Catalytic activity/Vol] 80 U/L 38 - 126 U/L [facility] ALT [Catalytic activity/Vol] 14 U/L 0 - 34 U/L [facility] Anion gap [Moles/Vol] 6 mmol/L 3 - 13 mmol/L [facility] AST [Catalytic activity/Vol] 43 U/L 15 - 46 U/L [facility] Bilirubin [Mass/Vol] 0.7 mg/dL 0.2 - 1 .3 mg/dL [facility] Calcium [Mass/Vol] 8.8 mg/dL 8.4 - 10. 4 mg/dL [facility] Chloride [Moles/Vol] 106 mmol/L 98 - 10 7 mmol/L [facility] CO2 [Moles/Vol] 26 mmol/L 22 - 30 mmol/L [facility] Creatinine [Mass/Vol] 0.56 mg/dL 0.52 - 1.04 mg/dL [facility] GFR/1.73 sq M.predicted MDRD (S/P/Bld) [Vol rate/Area] - PINF [facility] Comment on above: Calculation based on the Chronic Kidney Disease Epidemiology Collaboration (CKD-EPI) equation refit without adjustment for race Glucose [Mass/Vol] 160 mg/dL High 70 - 100 mg/dL [facility] Interpretation and review of laboratory results Abnormal [facility] Potassium [Moles/Vol] 4.0 mmol/L 3.5 - 5.1 mmol/L [facility] Potassium [Moles/Vol] 4 mmol/L 3.5 - 5.1 mmol/L [facility] Protein [Mass/Vol] 7.1 g/dL 6.3 - 8.2 g/dL [facility] Sodium [Moles/Vol] 138 mmol/L 135 - 145 mmol/L [facility] Urea nitrogen [Mass/Vol] 19 mg/dL High 7 - 17 mg/dL [facility] US Heart TransthoracicOrdere d By: Philippe Hoskins on 06-26-2023 Aortic Root 3.2 cm [facility] Work Phone: AR Max Velocity PISA 3.6 m/s [facility] Work Phone: AR PHT 443.0 ms [facility] Work Phone: Ascending Aorta 3.4 cm [facility] Work Phone: AV Area by Peak Velocity 2.6 cm2 [facility] Work Phone: AV Area by VTI 2.6 cm2 [facility] Work Phone: [phone] AV AT 74.22 ms [facility] Work Phone: [phone] AV Mean Gradient [address] [facility] Work Phone: AV Mean Velocity 0.8 m/s [facility] Work Phone: AV Peak Gradient 7 mmHg [facility] Work Phone: AV Peak Velocity 1.4 m/s [facility] Work Phone: AV Velocity Ratio 0.71 [facility] Work Phone: AV VTI 24.0 cm [facility] Work Phone: E/E' Lateral 8.50 [facility] Work Phone: E/E' Ratio (Averaged) 8.50 [facility] Work Phone: E/E' Septal 8.50 [facility] Work Phone: EF BP 62 % 55 - 100 % [facility] Work Phone: Fractional Shortening 2D 33 % 28 - 44 % [facility] Work Phone: Global Longitudinal Strain -19.4 % [facility] Work Phone: Global Longitudinal Strain -21.0 % [facility] Work Phone: Global Longitudinal Strain -13.9 % [facility] Work Phone: Global Longitudinal Strain -18.1 % [facility] [employer] Work Phone: Interpretation and review of laboratory results Abnormal [facility] Work Phone: IVC Diameter 1.3 cm [facility] Work Phone: IVSd 1.1 cm Abnormal 0.6 - 0.9 cm [facility] Work Phone: LA Diameter 3.2 cm [facility] Work Phone: LA Volume 2C 63 mL Abnormal 22 - 52 mL [facility] Work Phone: LA Volume 4C 51 mL 22 - 52 mL [facility] Work Phone: LA Volume A/L 61 mL [facility] Work Phone: LA Volume BP 58 mL Abnormal 22 - 52 mL [facility] Work Phone: LA/AO Root Ratio 1.[address] [facility] Work Phone: LV E' Lateral Velocity 6 cm/s [facility] Work Phone: LV E' Septal Velocity 6 cm/s [facility] [employer] Work Phone: LV EDV A4C 78 mL [facility] [employer] Work Phone: LV Ejection Fraction A4C 62 % [facility] [employer] Work Phone: LV ESV A4C 30 mL [facility] [employer] Work Phone: LV Mass 2D 188.1 g Abnormal 67 - 162 g [facility] [employer] Work Phone: LV RWT Ratio 0.41 [facility] [employer] Work Phone: LVIDd 4.9 cm 3.9 - 5.3 cm [facility] [employer] Work Phone: LVIDs 3.3 cm [facility] [employer] Work Phone: LVOT Area 3.5 cm2 [facility] [employer] Work Phone: LVOT Cardiac Output 5.6 liter/minute [facility] [employer] Work Phone: LVOT Diameter 2.1 cm [facility] [employer] Work Phone: LVOT Mean Gradient 2 mmHg [facility] [employer] Work Phone: LVOT Peak Gradient 4 mmHg [facility] [employer] Work Phone: LVOT Peak Velocity 1.0 m/s [facility] [employer] Work Phone: LVOT SV 63.0 ml [facility] [employer] Work Phone: LVOT VTI 18.2 cm [facility] [employer] Work Phone: LVOT:AV VTI Index 0.76 [facility] [employer]ab P[employer] Tabatabai, [employer]ker [employer] Work Phone: LVPWd 1.0 cm Abnormal 0.6 - 0.9 cm [facility] [employer] Work Phone: MV A Velocity 0.73 m/s [facility] [employer] Work Phone: MV E Velocity 0.51 m/s [facility] [employer] Work Phone: MV E Wave Deceleration Time 187.8 ms [facility] [employer] Work Phone: MV E/A 0.70 [facility] [employer] Work Phone: RA Area 4C 52.0 mL [facility] [employer] Work Phone: [phone] RA Area 4C 50.1 mL [facility] [employer] Work Phone: [phone] RV Basal Dimension 3.5 cm [facility] [employer] Work Phone: RV Free Wall Peak S' 23 cm/s [facility] [employer] Work Phone: RV Mid Dimension 2.7 cm [facility] [email or web address] Work Phone: TAPSE 2.6 cm 1.7 cm [employer] Work Phone: [phone] [facility] [employer] Work Phone: US Heart Transthoracicon Left Ventricle: [...] 0.4 % High NINF - 0.0 % [facility] Interpretation and review of laboratory results Abnormal [facility] Lymphocytes (Bld) [#/Vol] 1.2 10*3/uL 1.0 - 4.3 10*3/uL [facility] Lymphocytes/100 WBC (Bld) 17.2 % Low 20.0 - 40.0 % [facility] MCH (RBC) [Entitic mass] 31.2 pg 26.0 - 34.0 pg [facility] MCHC (RBC) [Mass/Vol] 32.7 % 32.0 - 36.0 % [facility] MCV (RBC) [Entitic vol] 95.2 fL 80.0 - 98.0 fL [facility] Monocytes (Bld) [#/Vol] 0.5 10*3/uL 0.0 - 0.8 10*3/uL [facility] Monocytes/100 WBC (Bld) 7.4 % 2.0 - 10.0 % [facility] Neutrophils (Bld) [#/Vol] 4.9 10*3/uL 1.8 - 7.0 10*3/uL [facility] Neutrophils/100 WBC (Bld) 70.6 % 40.0 - 80.0 % [facility] Platelet mean volume (Bld) [Entitic vol] 9.5 fL 7.4 - 12.4 fL [facility] Comment on above: MPV is a calculated measurement using platelet volume ratio Platelets (Bld) [#/Vol] 204 10*3/uL 140 - 440 10*3/uL [facility] RBC (Bld) [#/Vol] 4.14 10*6/uL 3.8 - 5.20 10*6/uL [facility] WBC (Bld) [#/Vol] 6.9 10*3/uL 3.6 - 10.7 10*3/uL [facility] Comprehensive metabolic 1998 panelon 06-24-2023 Albumin [Mass/Vol] 3.9 g/dL 3.5 - 5.0 g/dL [facility] ALP [Catalytic activity/Vol] 110 U/L 38 - 126 U/L [facility] ALT [Catalytic activity/Vol] 37 U/L High 0 - 34 U/L [facility] Anion gap [Moles/Vol] 6 mmol/L 3 - 13 mmol/L [facility] AST [Catalytic activity/Vol] 40 U/L 15 - 46 U/L [facility] Bilirubin [Mass/Vol] 0.6 mg/dL 0.2 - 1 .3 mg/dL [facility] Calcium [Mass/Vol] 8.9 mg/dL 8.4 - 10. 4 mg/dL [facility] Chloride [Moles/Vol] 107 mmol/L 98 - 10 7 mmol/L [facility] CO2 [Moles/Vol] 25 mmol/L 22 - 30 mmol/L [facility] Creatinine [Mass/Vol] 0.58 mg/dL 0.52 - 1.04 mg/dL [facility] GFR/1.73 sq M.predicted MDRD (S/P/Bld) [Vol rate/Area] - PINF [facility] Comment on above: Calculation based on the Chronic Kidney Disease Epidemiology Collaboration (CKD-EPI) equation refit without adjustment for race Glucose [Mass/Vol] 136 mg/dL High 70 - 100 mg/dL [facility] Interpretation and review of laboratory results Abnormal [facility] Potassium [Moles/Vol] 3.9 mmol/L 3.5 - 5.1 mmol/L [facility] Protein [Mass/Vol] 7.0 g/dL 6.3 - 8.2 g/dL [facility] Protein [Mass/Vol] 7 g/dL 6.3 - 8.2 g/dL [facility] Sodium [Moles/Vol] 139 mmol/L 135 - 145 mmol/L [facility] Urea nitrogen [Mass/Vol] 18 mg/dL High 7 - 17 mg/dL [facility] CNPNon 06-13-2023 CNPN Telephone (HCSIND) MADIHA PERALES ([id number]) 1945 F Date Time Provider Department 06/13/23 [...] Encounter Status:Closed by YONY OSULLIVAN on 10/21/24 [facility] 06-10-2023 CNCO Letter Text Normal [facility] CNPNon 06-09-2023 CNPN Telephone (HCSIND) MADIHA PERALES ([id number]) 1945 F Date Time Provider Department 06/09/23 [facility] HCSIND During your visit today, we recorded the following information about you: [place] Fiore 06/09/2023 9:35 AM Signed Hello there! My name is [Your Name], and I'm calling from [facility]. Your doctor wants to make [...] address will we be seeing you at? [address] [place] [id number] Do you have any upcoming appointments or [...] Where did you get it? [facility] Allergies As of Date: 06/09/2023 Noted Allergy [...] by [place] FIORE on 06/09/23 [facility] CNPN Telephone (HCSIND) MADIHA PERALES ([id number]) 1945 F Date Time Provider Department 06/09/23 [...] Visit: Home Care [4073] Cmt: Follow for [facility] Prescriptions as of 06/09/2023 - levoFLOXacin (LEVAQUIN) [...] Status:Closed by EPI JENNINGS on 06/09/23 Normal [facility] CBC W Auto Differential pane l (Bld)Ordered By: Radha Rain on 12-12-2023 Basophils (Bld) [#/Vol] 0.1 10*3/uL 0.0 - 0.2 10*3/uL [facility] Basophils/100 WBC (Bld) 0.9 % 0.0 - 2.0 % [facility] Eosinophils (Bld) [#/Vol] 0.1 10*3/uL 0.0 - 0.5 10*3/uL [facility] Eosinophils/100 WBC (Bld) 0.9 % Low 1.0 - 6.0 % [facility] Erythrocyte distribution width (RBC) [Ratio] 15.8 % High 11.5 - 14.5 % [facility] Hematocrit (Bld) [Volume fraction] 38.2 % 35.0 - 47.0 % [facility] Hemoglobin (Bld) [Mass/Vol] 12.9 g/dL 11.7 - 16.0 g/dL [facility] Immature granulocytes (Bld) [#/Vol] 0.1 10*3/uL High NINF - 0.0 10*3/uL [facility] Immature granulocytes/100 WBC (Bld) 1.9 % High NINF - 0.0 % [facility] Interpretation and review of laboratory results Abnormal [facility] Lymphocytes (Bld) [#/Vol] 0.4 10*3/uL Low 1.0 - 4.3 10*3/uL [facility] Lymphocytes/100 WBC (Bld) 6.2 % Low 20.0 - 40.0 % [facility] MCH (RBC) [Entitic mass] 31.2 pg 26.0 - 34.0 pg [facility] MCHC (RBC) [Mass/Vol] 33.8 % 32.0 - 36.0 % [facility] MCV (RBC) [Entitic vol] 92.5 fL 80.0 - 98.0 fL [facility] Monocytes (Bld) [#/Vol] 0.5 10*3/uL 0.0 - 0.8 10*3/uL [facility] Monocytes/100 WBC (Bld) 6.7 % 2.0 - 10.0 % [facility] Neutrophils (Bld) [#/Vol] 5.8 10*3/uL 1.8 - 7.0 10*3/uL [facility] Neutrophils/100 WBC (Bld) 83.4 % High 40.0 - 80.0 % [facility] Platelet mean volume (Bld) [Entitic vol] 9.6 fL 7.4 - 12.4 fL [facility] Comment on above: MPV is a calculated measurement using platelet volume ratio Platelets (Bld) [#/Vol] 251 10*3/uL 140 - 440 10*3/uL [facility] RBC (Bld) [#/Vol] 4.13 10*6/uL 3.8 - 5.20 10*6/uL [facility] WBC (Bld) [#/Vol] 6.9 10*3/uL 3.6 - 10.7 10*3/uL [facility] Comprehensive metabolic 1998 panelon 06-03-2023 Albumin [Mass/Vol] 3.9 g/dL 3.5 - 5.0 g/dL [facility] ALP [Catalytic activity/Vol] 79 U/L 38 - 126 U/L [facility] ALT [Catalytic activity/Vol] 24 U/L 0 - 34 U/L [facility] Anion gap [Moles/Vol] 12 mmol/L 3 - 13 mmol/L [facility] AST [Catalytic activity/Vol] 45 U/L 15 - 46 U/L [facility] Bilirubin [Mass/Vol] 0.8 mg/dL 0.2 - 1 .3 mg/dL [facility] Calcium [Mass/Vol] 8.8 mg/dL 8.4 - 10. 4 mg/dL [facility] Chloride [Moles/Vol] 100 mmol/L 98 - 10 7 mmol/L [facility] CO2 [Moles/Vol] 22 mmol/L 22 - 30 mmol/L [facility] Creatinine [Mass/Vol] 0.74 mg/dL 0.52 - 1.04 mg/dL [facility] GFR/1.73 sq M.predicted MDRD (S/P/Bld) [Vol rate/Area] 83.4 mL/min/{1.73_m2} - PINF [facility] Comment on above: Calculation based on the Chronic Kidney Disease Epidemiology Collaboration (CKD-EPI) equation refit without adjustment for race Glucose [Mass/Vol] 146 mg/dL High 70 - 100 mg/dL [facility] Interpretation and review of laboratory results Abnormal [facility] Potassium [Moles/Vol] 4.5 mmol/L 3.5 - 5.1 mmol/L [facility] Protein [Mass/Vol] 7.0 g/dL 6.3 - 8.2 g/dL [facility] Sodium [Moles/Vol] 134 mmol/L Low 135 - 145 mmol/L [facility] Urea nitrogen [Mass/Vol] 12 mg/dL 7 - 17 mg/dL [facility] Urinalysis complete panel (U )on 06-03-2023 Bacteria LM.HPF (Urine sed) [#/Area] Moderate Abnormal Negative /HPF [facility] Bilirubin Ql (U) Negative Negative mg/dL [facility] Clarity (U) Clear Clear [facility] Color (U) Yellow Lt. Yellow [facility] Epithelial cells.squamous LM.HPF (Urine sed) [#/Area] [facility] Gl[facility] Ql (U) Normal Normal (<70) mg/dL [facility] Hemoglobin Ql (U) 0.06 mg/dL Abnormal Negative [facility] Interpretation and review of laboratory results Abnormal [facility] Ketones (U) [Mass/Vol] Negative Negat susy mg/dL [facility] Leukocyte esterase Test strip Ql (U) 500 Abnormal Negative Jose/uL [facility] Nitrite Ql (U) Negative Negative [facility] th Non-Squamous Epithalial Cells, Urine 0-2 Abnormal Negative /HPF [facility] pH (U) 7.0 [pH] 5.0 - 8.0 pH [facility] Protein (U) [Mass/Vol] Negative Negat susy mg/dL [facility] RBC LM.HPF (Urine sed) [#/Area] 3-5 Abnormal [facility] Specific gravity (U) [Rel density] 1.010 1.005 - 1.030 [facility] Urobilinogen (U) [Mass/Vol] Normal Normal (0-1) mg/dL [facility] Volume, Urine 8-12 mL [facility] WBC LM.HPF (Urine sed) [#/Area] 6-10 Abnormal [facility] CBC W Auto Differential pane l (Bld)Ordered By: Radha Rain on 05-27-2023 Basophils (Bld) [#/Vol] 0.0 10*3/uL 0.0 - 0.2 10*3/uL [facility] Basophils/100 WBC (Bld) 0.8 % 0.0 - 2.0 % [facility] Eosinophils (Bld) [#/Vol] 0.1 10*3/uL 0.0 - 0.5 10*3/uL [facility] Eosinophils/100 WBC (Bld) 1.7 % 1.0 - 6.0 % [facility] Erythrocyte distribution width (RBC) [Ratio] 15.8 % High 11.5 - 14.5 % [facility] Hematocrit (Bld) [Volume fraction] 38.5 % 35.0 - 47.0 % [facility] Hemoglobin (Bld) [Mass/Vol] 13.1 g/dL 11.7 - 16.0 g/dL [facility] Immature granulocytes (Bld) [#/Vol] 0.1 10*3/uL High NINF - 0.0 10*3/uL [facility] Immature granulocytes/100 WBC (Bld) 2.1 % High NINF - 0.0 % [facility] Interpretation and review of laboratory results Abnormal [facility] Lymphocytes (Bld) [#/Vol] 0.7 10*3/uL Low 1.0 - 4.3 10*3/uL [facility] Lymphocytes/100 WBC (Bld) 12.7 % Low 20.0 - 40.0 % [facility] MCH (RBC) [Entitic mass] 31.6 pg 26.0 - 34.0 pg [facility] MCHC (RBC) [Mass/Vol] 34.0 % 32.0 - 36.0 % [facility] MCV (RBC) [Entitic vol] 92.8 fL 80.0 - 98.0 fL [facility] Monocytes (Bld) [#/Vol] 0.4 10*3/uL 0.0 - 0.8 10*3/uL [facility] Monocytes/100 WBC (Bld) 7.8 % 2.0 - 10.0 % [facility] Neutrophils (Bld) [#/Vol] 4.0 10*3/uL 1.8 - 7.0 10*3/uL [facility] Neutrophils/100 WBC (Bld) 74.9 % 40.0 - 80.0 % [facility] Platelet mean volume (Bld) [Entitic vol] 9.5 fL 7.4 - 12.4 fL [facility] Comment on above: MPV is a calculated measurement using platelet volume ratio Platelets (Bld) [#/Vol] 226 10*3/uL 140 - 440 10*3/uL [facility] RBC (Bld) [#/Vol] 4.15 10*6/uL 3.8 - 5.20 10*6/uL [facility] WBC (Bld) [#/Vol] 5.3 10*3/uL 3.6 - 10.7 10*3/uL [facility] Comprehensive metabolic 1998 panelon 05-27-2023 Albumin [Mass/Vol] 4.0 g/dL 3.5 - 5.0 g/dL [facility] ALP [Catalytic activity/Vol] 81 U/L 38 - 126 U/L [facility] ALT [Catalytic activity/Vol] 20 U/L 0 - 34 U/L [facility] Anion gap [Moles/Vol] 9 mmol/L 3 - 13 mmol/L [facility] AST [Catalytic activity/Vol] 33 U/L 15 - 46 U/L [facility] Bilirubin [Mass/Vol] 0.6 mg/dL 0.2 - 1 .3 mg/dL [facility] Calcium [Mass/Vol] 8.8 mg/dL 8.4 - 10. 4 mg/dL [facility] Chloride [Moles/Vol] 103 mmol/L 98 - 10 7 mmol/L [facility] CO2 [Moles/Vol] 24 mmol/L 22 - 30 mmol/L [facility] Creatinine [Mass/Vol] 0.54 mg/dL 0.52 - 1.04 mg/dL [facility] GFR/1.73 sq M.predicted MDRD (S/P/Bld) [Vol rate/Area] - PINF [facility] Comment on above: Calculation based on the Chronic Kidney Disease Epidemiology Collaboration (CKD-EPI) equation refit without adjustment for race Glucose [Mass/Vol] 131 mg/dL High 70 - 100 mg/dL [facility] Interpretation and review of laboratory results Abnormal [facility] Potassium [Moles/Vol] 3.7 mmol/L 3.5 - 5.1 mmol/L [facility] Protein [Mass/Vol] 6.7 g/dL 6.3 - 8.2 g/dL [facility] Sodium [Moles/Vol] 135 mmol/L 135 - 145 mmol/L [facility] Urea nitrogen [Mass/Vol] 12 mg/dL 7 - 17 mg/dL [facility] CBC W Auto Differential pane l (Bld)Ordered By: Annie Montalvo on 05-20-2023 Basophils (Bld) [#/Vol] 0.0 10*3/uL 0.0 - 0.2 10*3/uL [facility] Basophils/100 WBC (Bld) 0.7 % 0.0 - 2.0 % [facility] Eosinophils (Bld) [#/Vol] 0.1 10*3/uL 0.0 - 0.5 10*3/uL [facility] Eosinophils/100 WBC (Bld) 1.1 % 1.0 - 6.0 % [facility] Erythrocyte distribution width (RBC) [Ratio] 15.3 % High 11.5 - 14.5 % [facility] Hematocrit (Bld) [Volume fraction] 40.1 % 35.0 - 47.0 % [facility] Hemoglobin (Bld) [Mass/Vol] 13.8 g/dL 11.7 - 16.0 g/dL [facility] Immature granulocytes (Bld) [#/Vol] 0.1 10*3/uL High NINF - 0.0 10*3/uL [facility] Immature granulocytes/100 WBC (Bld) 1.5 % High NINF - 0.0 % [facility] Interpretation and review of laboratory results Abnormal [facility] Lymphocytes (Bld) [#/Vol] 0.6 10*3/uL Low 1.0 - 4.3 10*3/uL [facility] Lymphocytes/100 WBC (Bld) 11.6 % Low 20.0 - 40.0 % [facility] MCH (RBC) [Entitic mass] 31.9 pg 26.0 - 34.[address] [facility] MCHC (RBC) [Mass/Vol] 34.4 % 32.0 [...] (Bld) 79.3 % 40.0 - 80.0 % [facility] Platelet mean volume (Bld) [Entitic vol] 9.8 fL 7.4 - 12.4 fL [facility] Comment on above: MPV is a calculated measurement using platelet volume ratio Platelets (Bld) [#/Vol] 237 10*3/uL 140 - 440 10*3/uL [facility] RBC (Bld) [#/Vol] 4.33 10*6/uL 3.8 - 5.20 10*6/uL [facility] WBC (Bld) [#/Vol] 5.5 10*3/uL 3.6 - 10.7 10*3/uL [facility] Comprehensive metabolic 1998 panelon 05-20-2023 Albumin [Mass/Vol] 4.4 g/dL 3.5 - 5.0 g/dL [facility] ALP [Catalytic activity/Vol] 81 U/L 38 - 126 U/L [facility] ALT [Catalytic activity/Vol] 42 U/L High 0 - 34 U/L [facility] Anion gap [Moles/Vol] 7 mmol/L 3 - 13 mmol/L [facility] AST [Catalytic activity/Vol] 46 U/L 15 - 46 U/L [facility] Bilirubin [Mass/Vol] 0.7 mg/dL 0.2 - 1 .3 mg/dL [facility] Calcium [Mass/Vol] 8.9 mg/dL 8.4 - 10. 4 mg/dL [facility] Chloride [Moles/Vol] 106 mmol/L 98 - 10 7 mmol/L [facility] CO2 [Moles/Vol] 23 mmol/L 22 - 30 mmol/L [facility] Creatinine [Mass/Vol] 0.62 mg/dL 0.52 - 1.04 mg/dL [facility] GFR/1.73 sq M.predicted MDRD (S/P/Bld) [Vol rate/Area] - PINF [facility] Comment on above: Calculation based on the Chronic Kidney Disease Epidemiology Collaboration (CKD-EPI) equation refit without adjustment for race Glucose [Mass/Vol] 115 mg/dL High 70 - 100 mg/dL [facility] Interpretation and review of laboratory results Abnormal [facility] Potassium [Moles/Vol] 4.3 mmol/L 3.5 - 5.1 mmol/L [facility] Protein [Mass/Vol] 7.5 g/dL 6.3 - 8.2 g/dL [facility] Sodium [Moles/Vol] 136 mmol/L 135 - 145 mmol/L [facility] Urea nitrogen [Mass/Vol] 21 mg/dL High 7 - 17 mg/dL [facility] CBC W Auto Differential pane l (Bld)Ordered By: Radha Rain on 05-13-2023 Basophils (Bld) [#/Vol] 0.1 10*3/uL 0.0 - 0.2 10*3/uL [facility] Basophils/100 WBC (Bld) 1.0 % 0.0 - 2.0 % [facility] Eosinophils (Bld) [#/Vol] 0.1 10*3/uL 0.0 - 0.5 10*3/uL [facility] Eosinophils/100 WBC (Bld) 1.8 % 1.0 - 6.0 % [facility] Erythrocyte distribution width (RBC) [Ratio] 14.9 % High 11.5 - 14.5 % [facility] Hematocrit (Bld) [Volume fraction] 38.6 % 35.0 - 47.0 % [facility] Hemoglobin (Bld) [Mass/Vol] 12.9 g/dL 11.7 - 16.0 g/dL [facility] Immature granulocytes (Bld) [#/Vol] 0.1 10*3/uL High NINF - 0.0 10*3/uL [facility] Immature granulocytes/100 WBC (Bld) 1.6 % High NINF - 0.0 % [facility] Interpretation and review of laboratory results Abnormal [facility] Lymphocytes (Bld) [#/Vol] 0.9 10*3/uL Low 1.0 - 4.3 10*3/uL [facility] Lymphocytes/100 WBC (Bld) 17.0 % Low 20.0 - 40.0 % [facility] MCH (RBC) [Entitic mass] 31.2 pg 26.0 - 34.0 pg [facility] MCHC (RBC) [Mass/Vol] 33.4 % 32.0 - 36.0 % [facility] MCV (RBC) [Entitic vol] 93.5 fL 80.0 - 98.0 fL [facility] Monocytes (Bld) [#/Vol] 0.2 10*3/uL 0.0 - 0.8 10*3/uL [facility] Monocytes/100 WBC (Bld) 3.2 % 2.0 - 10.0 % [facility] Neutrophils (Bld) [#/Vol] 3.8 10*3/uL 1.8 - 7.0 10*3/uL [facility] Neutrophils/100 WBC (Bld) 75.4 % 40.0 - 80.0 % [facility] Platelet mean volume (Bld) [Entitic vol] 9.9 fL 7.4 - 12.4 fL [facility] Comment on above: MPV is a calculated measurement using platelet volume ratio Platelets (Bld) [#/Vol] 218 10*3/uL 140 - 440 10*3/uL [facility] RBC (Bld) [#/Vol] 4.13 10*6/uL 3.8 - 5.20 10*6/uL [facility] WBC (Bld) [#/Vol] 5.1 10*3/uL 3.6 - 10.7 10*3/uL [facility] Comprehensive metabolic 1998 panelon 05-13-2023 Albumin [Mass/Vol] 4.0 g/dL 3.5 - 5.0 g/dL [facility] ALP [Catalytic activity/Vol] 89 U/L 38 - 126 U/L [facility] ALT [Catalytic activity/Vol] 36 U/L High 0 - 34 U/L [facility] Anion gap [Moles/Vol] 8 mmol/L 3 - 13 mmol/L [facility] AST [Catalytic activity/Vol] 37 U/L 15 - 46 U/L [facility] Bilirubin [Mass/Vol] 0.5 mg/dL 0.2 - 1 .3 mg/dL [facility] Calcium [Mass/Vol] 8.5 mg/dL 8.4 - 10. 4 mg/dL [facility] Chloride [Moles/Vol] 105 mmol/L 98 - 10 7 mmol/L [facility] CO2 [Moles/Vol] 24 mmol/L 22 - 30 mmol/L [facility] Creatinine [Mass/Vol] 0.72 mg/dL 0.52 - 1.04 mg/dL [facility] GFR/1.73 sq M.predicted MDRD (S/P/Bld) [Vol rate/Area] 86.2 mL/min/{1.73_m2} - PINF [facility] [employer] Comment on above: Calculation based on the Chronic Kidney Disease Epidemiology Collaboration (CKD-EPI) equation refit without adjustment for race Glucose [Mass/Vol] 150 mg/dL High 70 - 100 mg/dL [facility] Interpretation and review of laboratory results Abnormal [facility] Potassium [Moles/Vol] 3.6 mmol/L 3.5 - 5.1 mmol/L [facility] [employer] Protein [Mass/Vol] 6.7 g/dL 6.3 - 8.2 g/dL [facility] [employer] Sodium [Moles/Vol] 137 mmol/L 135 - 145 mmol/L [facility] Urea nitrogen [Mass/Vol] 19 mg/dL High 7 - 17 mg/dL [facility] CBC W Auto Differential pane l (Bld)Ordered By: Radha Rain on 05-06-2023 Basophils (Bld) [#/Vol] 0.0 10*3/uL 0.0 - 0.2 10*3/uL [facility] [employer] Basophils/100 WBC (Bld) 0.9 % 0.0 - 2.0 % [facility] Eosinophils (Bld) [#/Vol] 0.1 10*3/uL 0.0 - 0.5 10*3/uL [facility] [employer] Eosinophils/100 WBC (Bld) 2.8 % 1.0 - 6.0 % [facility] Erythrocyte distribution width (RBC) [Ratio] 14.6 % High 11.5 - 14.5 % [facility] Hematocrit (Bld) [Volume fraction] 39.2 % 35.0 - 47.0 % [facility] Hemoglobin (Bld) [Mass/Vol] 13.0 g/dL 11.7 - 16.0 g/dL [facility] Immature granulocytes (Bld) [#/Vol] 0.1 10*3/uL High NINF - 0.0 10*3/uL [facility] [employer] Immature granulocytes/100 WBC (Bld) 1.7 % High NINF - 0.0 % [facility] Interpretation and review of laboratory results Abnormal [facility] Lymphocytes (Bld) [#/Vol] 0.8 10*3/uL Low 1.0 - 4.3 10*3/uL [facility] [employer] Lymphocytes/100 WBC (Bld) 18.0 % Low 20.0 - 40.0 % [facility] MCH (RBC) [Entitic mass] 31.1 pg 26.0 - 34.0 pg [facility] MCHC (RBC) [Mass/Vol] 33.2 % 32.0 - 36.0 % [facility] MCV (RBC) [Entitic vol] 93.8 fL 80.0 - 98.0 fL [facility] Monocytes (Bld) [#/Vol] 0.3 10*3/uL 0.0 - 0.8 10*3/uL [facility] Monocytes/100 WBC (Bld) 5.4 % 2.0 - 10.0 % [facility] Neutrophils (Bld) [#/Vol] 3.3 10*3/uL 1.8 - 7.0 10*3/uL [facility] Neutrophils/100 WBC (Bld) 71.2 % 40.0 - 80.0 % [facility] Platelet mean volume (Bld) [Entitic vol] 10.0 fL 7.4 - 12.4 fL [facility] Comment on above: MPV is a calculated measurement using platelet volume ratio Platelets (Bld) [#/Vol] 184 10*3/uL 140 - 440 10*3/uL [facility] RBC (Bld) [#/Vol] 4.18 10*6/uL 3.8 - 5.20 10*6/uL [facility] WBC (Bld) [#/Vol] 4.7 10*3/uL 3.6 - 10.7 10*3/uL [facility] Comprehensive metabolic 1998 panelon 05-06-2023 Albumin [Mass/Vol] 3.9 g/dL 3.5 - 5.0 g/dL [facility] ALP [Catalytic activity/Vol] 80 U/L 38 - 126 U/L [facility] ALT [Catalytic activity/Vol] 40 U/L High 0 - 34 U/L [facility] Anion gap [Moles/Vol] 9 mmol/L 3 - 13 mmol/L [facility] AST [Catalytic activity/Vol] 36 U/L 15 - 46 U/L [facility] Bilirubin [Mass/Vol] 0.5 mg/dL 0.2 - 1 .3 mg/dL [facility] Calcium [Mass/Vol] 8.6 mg/dL 8.4 - 10. 4 mg/dL [facility] Chloride [Moles/Vol] 105 mmol/L 98 - 10 7 mmol/L [facility] CO2 [Moles/Vol] 24 mmol/L 22 - 30 mmol/L [facility] Creatinine [Mass/Vol] 0.61 mg/dL 0.52 - 1.04 mg/dL [facility] GFR/1.73 sq M.predicted MDRD (S/P/Bld) [Vol rate/Area] - PINF [facility] Comment on above: Calculation based on the Chronic Kidney Disease Epidemiology Collaboration (CKD-EPI) equation refit without adjustment for race Glucose [Mass/Vol] 125 mg/dL High 70 - 100 mg/dL [facility] Interpretation and review of laboratory results Abnormal [facility] Potassium [Moles/Vol] 3.8 mmol/L 3.5 - 5.1 mmol/L [facility] Protein [Mass/Vol] 6.7 g/dL 6.3 - 8.2 g/dL [facility] Sodium [Moles/Vol] 139 mmol/L 135 - 145 mmol/L [facility] Urea nitrogen [Mass/Vol] 22 mg/dL High 7 - 17 mg/dL [facility] CBC W Auto Differential pane l (Bld)Ordered By: Annie Montalvo on 04-29-2023 Basophils (Bld) [#/Vol] 0.0 10*3/uL 0.0 - 0.2 10*3/uL [facility] Basophils/100 WBC (Bld) 0.6 % 0.0 - 2.0 % [facility] Eosinophils (Bld) [#/Vol] 0.1 10*3/uL 0.0 - 0.5 10*3/uL [facility] Eosinophils/100 WBC (Bld) 1.8 % 1.0 - 6.0 % [facility] Erythrocyte distribution width (RBC) [Ratio] 14.5 % 11.5 - 14.5 % [facility] Hematocrit (Bld) [Volume fraction] 40.1 % 35.0 - 47.0 % [facility] Hemoglobin (Bld) [Mass/Vol] 13.4 g/dL 11.7 - 16.0 g/dL [facility] Immature granulocytes (Bld) [#/Vol] 0.1 10*3/uL High NINF - 0.0 10*3/uL [facility] Immature granulocytes/100 WBC (Bld) 1.3 % High NINF - 0.0 % [facility] Interpretation and review of laboratory results Abnormal [facility] Lymphocytes (Bld) [#/Vol] 1.3 10*3/uL 1.0 - 4.3 10*3/uL [facility] Lymphocytes/100 WBC (Bld) 18.5 % Low 20.0 - 40.0 % [facility] MCH (RBC) [Entitic mass] 31.2 pg 26.0 - 34.0 pg [facility] MCHC (RBC) [Mass/Vol] 33.4 % 32.0 - 36.0 % [facility] MCV (RBC) [Entitic vol] 93.3 fL 80.0 - 98.0 fL [facility] Monocytes (Bld) [#/Vol] 0.3 10*3/uL 0.0 - 0.8 10*3/uL [facility] Monocytes/100 WBC (Bld) 4.4 % 2.0 - 10.0 % [facility] Neutrophils (Bld) [#/Vol] 5.0 10*3/uL 1.8 - 7.0 10*3/uL [facility] Neutrophils/100 WBC (Bld) 73.4 % 40.0 - 80.0 % [facility] Platelet mean volume (Bld) [Entitic vol] 9.7 fL 7.4 - 12.4 fL [facility] Comment on above: MPV is a calculated measurement using platelet volume ratio Platelets (Bld) [#/Vol] 211 10*3/uL 140 - 440 10*3/uL [facility] RBC (Bld) [#/Vol] 4.30 10*6/uL 3.8 - 5.20 10*6/uL [facility] WBC (Bld) [#/Vol] 6.8 10*3/uL 3.6 - 10.7 10*3/uL [facility] Comprehensive metabolic 1998 panelon 04-29-2023 Albumin [Mass/Vol] 4.1 g/dL 3.5 - 5.0 g/dL [facility] ALP [Catalytic activity/Vol] 99 U/L 38 - 126 U/L [facility] ALT [Catalytic activity/Vol] 33 U/L 0 - 34 U/L [facility] Anion gap [Moles/Vol] 9 mmol/L 3 - 13 mmol/L [facility] AST [Catalytic activity/Vol] 38 U/L 15 - 46 U/L [facility] Bilirubin [Mass/Vol] 0.4 mg/dL 0.2 - 1 .3 mg/dL [facility] Calcium [Mass/Vol] 8.3 mg/dL Low 8.4 - 10. 4 mg/dL [facility] Chloride [Moles/Vol] 105 mmol/L 98 - 10 7 mmol/L [facility] CO2 [Moles/Vol] 24 mmol/L 22 - 30 mmol/L [facility] Creatinine [Mass/Vol] 0.59 mg/dL 0.52 - 1.04 mg/dL [facility] GFR/1.73 sq M.predicted MDRD (S/P/Bld) [Vol rate/Area] - PINF [facility] Comment on above: Calculation based on the Chronic Kidney Disease Epidemiology Collaboration (CKD-EPI) equation refit without adjustment for race Glucose [Mass/Vol] 121 mg/dL High 70 - 100 mg/dL [facility] Interpretation and review of laboratory results Abnormal [facility] Potassium [Moles/Vol] 4.0 mmol/L 3.5 - 5.1 mmol/L [facility] Protein [Mass/Vol] 7.0 g/dL 6.3 - 8.2 g/dL [facility] Sodium [Moles/Vol] 139 mmol/L 135 - 145 mmol/L [facility] Urea nitrogen [Mass/Vol] 22 mg/dL High 7 - 17 mg/dL [facility] CBC W Auto Differential pane l (Bld)Ordered By: Radha Rain on 04-22-2023 Basophils (Bld) [#/Vol] 0.0 10*3/uL 0.0 - 0.2 10*3/uL [facility] Basophils/100 WBC (Bld) 0.8 % 0.0 - 2.0 % [facility] Eosinophils (Bld) [#/Vol] 0.1 10*3/uL 0.0 - 0.5 10*3/uL [facility] Eosinophils/100 WBC (Bld) 1.5 % 1.0 - 6.0 % [facility] Erythrocyte distribution width (RBC) [Ratio] 14.3 % 11.5 - 14.5 % [facility] Hematocrit (Bld) [Volume fraction] 39.2 % 35.0 - 47.0 % [facility] Hemoglobin (Bld) [Mass/Vol] 12.9 g/dL 11.7 - 16.0 g/dL [facility] Immature granulocytes (Bld) [#/Vol] 0.1 10*3/uL High NINF - 0.0 10*3/uL [facility] Immature granulocytes/100 WBC (Bld) 1.1 % High NINF - 0.0 % [facility] Interpretation and review of laboratory results Abnormal [facility] Lymphocytes (Bld) [#/Vol] 1.1 10*3/uL 1.0 - 4.3 10*3/uL [facility] Lymphocytes/100 WBC (Bld) 23.4 % 20.0 - 40.0 % [facility] MCH (RBC) [Entitic mass] 30.9 pg 26.0 - 34.0 pg [facility] MCHC (RBC) [Mass/Vol] 32.9 % 32.0 - 36.0 % [facility] MCV (RBC) [Entitic vol] 93.8 fL 80.0 - 98.0 fL [facility] Monocytes (Bld) [#/Vol] 0.5 10*3/uL 0.0 - 0.8 10*3/uL [facility] Monocytes/100 WBC (Bld) 10.0 % 2.0 - 10.0 % [facility] Neutrophils (Bld) [#/Vol] 3.0 10*3/uL 1.8 - 7.0 10*3/uL [facility] Neutrophils/100 WBC (Bld) 63.2 % 40.0 - 80.0 % [facility] Platelet mean volume (Bld) [Entitic vol] 9.3 fL 7.4 - 12.4 fL [facility] Comment on above: MPV is a calculated measurement using platelet volume ratio Platelets (Bld) [#/Vol] 223 10*3/uL 140 - 440 10*3/uL [facility] RBC (Bld) [#/Vol] 4.18 10*6/uL 3.8 - 5.20 10*6/uL [facility] WBC (Bld) [#/Vol] 4.7 10*3/uL 3.6 - 10.7 10*3/uL [facility] Comprehensive metabolic 1998 panelon 04-22-2023 Albumin [Mass/Vol] 3.9 g/dL 3.5 - 5.0 g/dL [facility] ALP [Catalytic activity/Vol] 100 U/L 38 - 126 U/L [facility] ALT [Catalytic activity/Vol] 36 U/L High 0 - 34 U/L [facility] Anion gap [Moles/Vol] 3 mmol/L 3 - 13 mmol/L [facility] AST [Catalytic activity/Vol] 37 U/L 15 - 46 U/L [facility] Bilirubin [Mass/Vol] 0.4 mg/dL 0.2 - 1 .3 mg/dL [facility] Calcium [Mass/Vol] 8.6 mg/dL 8.4 - 10. 4 mg/dL [facility] Chloride [Moles/Vol] 107 mmol/L 98 - 10 7 mmol/L [facility] CO2 [Moles/Vol] 28 mmol/L 22 - 30 mmol/L [facility] Creatinine [Mass/Vol] 0.56 mg/dL 0.52 - 1.04 mg/dL [facility] GFR/1.73 sq M.predicted MDRD (S/P/Bld) [Vol rate/Area] - PINF [facility] Comment on above: Calculation based on the Chronic Kidney Disease Epidemiology Collaboration (CKD-EPI) equation refit without adjustment for race Glucose [Mass/Vol] 139 mg/dL High 70 - 100 mg/dL [facility] Interpretation and review of laboratory results Abnormal [facility] Potassium [Moles/Vol] 3.8 mmol/L 3.5 - 5.1 mmol/L [facility] Protein [Mass/Vol] 6.7 g/dL 6.3 - 8.2 g/dL [facility] Sodium [Moles/Vol] 138 mmol/L 135 - 145 mmol/L [facility] Urea nitrogen [Mass/Vol] 17 mg/dL 7 - 17 mg/dL [facility] CBC W Auto Differential pane l (Bld)Ordered By: Radha Rain on 04-08-2023 Basophils (Bld) [#/Vol] 0.0 10*3/uL 0.0 - 0.2 10*3/uL [facility] Basophils (Bld) [#/Vol] 0 10*3/uL 0.0 - 0.2 10*3/uL [facility] Basophils/100 WBC (Bld) 0.9 % 0.0 - 2.0 % [facility] Eosinophils (Bld) [#/Vol] 0.1 10*3/uL 0.0 - 0.5 10*3/uL [facility] Eosinophils/100 WBC (Bld) 2.6 % 1.0 - 6.0 % [facility] Erythrocyte distribution width (RBC) [Ratio] 14.0 % 11.5 - 14.5 % [facility] Erythrocyte distribution width (RBC) [Ratio] 14 % 11.5 - 14.5 % [facility] Hematocrit (Bld) [Volume fraction] 39.1 % 35.0 - 47.0 % [facility] Hemoglobin (Bld) [Mass/Vol] 12.8 g/dL 11.7 - 16.0 g/dL [facility] Immature granulocytes (Bld) [#/Vol] 0.1 10*3/uL High NINF - 0.0 10*3/uL [facility] Immature granulocytes/100 WBC (Bld) 1.9 % High NINF - 0.0 % [facility] Interpretation and review of laboratory results Abnormal [facility] Lymphocytes (Bld) [#/Vol] 0.9 10*3/uL Low 1.0 - 4.3 10*3/uL [facility] Lymphocytes/100 WBC (Bld) 18.6 % Low 20.0 - 40.0 % [facility] MCH (RBC) [Entitic mass] 31.0 pg 26.0 - 34.0 pg [facility] MCH (RBC) [Entitic mass] 31 pg 26.0 - 34.0 pg [facility] MCHC (RBC) [Mass/Vol] 32.7 % 32.0 - 36.0 % [facility] MCV (RBC) [Entitic vol] 94.7 fL 80.0 - 98.0 fL [facility] Monocytes (Bld) [#/Vol] 0.2 10*3/uL 0.0 - 0.8 10*3/uL [facility] Monocytes/100 WBC (Bld) 3.2 % 2.0 - 10.0 % [facility] Neutrophils (Bld) [#/Vol] 3.4 10*3/uL 1.8 - 7.0 10*3/uL [facility] Neutrophils/100 WBC (Bld) 72.8 % 40.0 - 80.0 % [facility] Platelet mean volume (Bld) [Entitic vol] 10.1 fL 7.4 - 12.4 fL [facility] Comment on above: MPV is a calculated measurement using platelet volume ratio Platelets (Bld) [#/Vol] 186 10*3/uL 140 - 440 10*3/uL [facility] RBC (Bld) [#/Vol] 4.13 10*6/uL 3.8 - 5.20 10*6/uL [facility] WBC (Bld) [#/Vol] 4.7 10*3/uL 3.6 - 10.7 10*3/uL [facility] Comprehensive metabolic 1998 panelon 04-08-2023 Albumin [Mass/Vol] 4.0 g/dL 3.5 - 5.0 g/dL [facility] Albumin [Mass/Vol] 4 g/dL 3.5 - 5.0 g/dL [facility] ALP [Catalytic activity/Vol] 86 U/L 38 - 126 U/L [facility] ALT [Catalytic activity/Vol] 42 U/L High 0 - 34 U/L [facility] Anion gap [Moles/Vol] 2 mmol/L Low 3 - 13 mmol/L [facility] AST [Catalytic activity/Vol] 37 U/L 15 - 46 U/L [facility] Bilirubin [Mass/Vol] 0.6 mg/dL 0.2 - 1 .3 mg/dL [facility] Calcium [Mass/Vol] 8.7 mg/dL 8.4 - 10. 4 mg/dL [facility] Chloride [Moles/Vol] 106 mmol/L 98 - 10 7 mmol/L [facility] CO2 [Moles/Vol] 30 mmol/L 22 - 30 mmol/L [facility] Creatinine [Mass/Vol] 0.60 mg/dL 0.52 - 1.04 mg/dL [facility] Creatinine [Mass/Vol] 0.6 mg/dL 0.52 - 1.04 mg/dL [facility] GFR/1.73 sq M.predicted MDRD (S/P/Bld) [Vol rate/Area] - PINF [facility] Comment on above: Calculation based on the Chronic Kidney Disease Epidemiology Collaboration (CKD-EPI) equation refit without adjustment for race Glucose [Mass/Vol] 88 mg/dL 70 - 100 mg/dL [facility] Interpretation and review of laboratory results Abnormal [facility] Potassium [Moles/Vol] 4.1 mmol/L 3.5 - 5.1 mmol/L [facility] Protein [Mass/Vol] 6.6 g/dL 6.3 - 8.2 g/dL [facility] Sodium [Moles/Vol] 138 mmol/L 135 - 145 mmol/L [facility] Urea nitrogen [Mass/Vol] 21 mg/dL High 7 - 17 mg/dL [facility] CBC W Auto Differential pane l (Bld)Ordered By: Radha Rain on 04-01-2023 Basophils (Bld) [#/Vol] 0.0 10*3/uL 0.0 - 0.2 10*3/uL [facility] Basophils/100 WBC (Bld) 0.1 % 0.0 - 2.0 % [facility] Eosinophils (Bld) [#/Vol] 0.0 10*3/uL 0.0 - 0.5 10*3/uL [facility] Eosinophils/100 WBC (Bld) 0.0 % Low 1.0 - 6.0 % [facility] Erythrocyte distribution width (RBC) [Ratio] 13.8 % 11.5 - 14.5 % [facility] Hematocrit (Bld) [Volume fraction] 42.8 % 35.0 - 47.0 % [facility] Hemoglobin (Bld) [Mass/Vol] 14.1 g/dL 11.7 - 16.0 g/dL [facility] Immature granulocytes (Bld) [#/Vol] 0.0 10*3/uL NINF - 0.0 10*3/uL [facility] Immature granulocytes/100 WBC (Bld) 0.3 % High NINF - 0.0 % [facility] Interpretation and review of laboratory results Abnormal [facility] Lymphocytes (Bld) [#/Vol] 0.7 10*3/uL Low 1.0 - 4.3 10*3/uL [facility] Lymphocytes/100 WBC (Bld) 5.2 % Low 20.0 - 40.0 % [facility] MCH (RBC) [Entitic mass] 30.7 pg 26.0 - 34.0 pg [facility] MCHC (RBC) [Mass/Vol] 32.9 % 32.0 - 36.0 % [facility] MCV (RBC) [Entitic vol] 93.2 fL 80.0 - 98.0 fL [facility] Monocytes (Bld) [#/Vol] 0.4 10*3/uL 0.0 - 0.8 10*3/uL [facility] Monocytes/100 WBC (Bld) 2.6 % 2.0 - 10.0 % [facility] Neutrophils (Bld) [#/Vol] 12.3 10*3/uL High 1.8 - 7.0 10*3/uL [facility] Neutrophils/100 WBC (Bld) 91.8 % High 40.0 - 80.0 % [facility] Platelet mean volume (Bld) [Entitic vol] 9.8 fL 7.4 - 12.4 fL [facility] Comment on above: MPV is a calculated measurement using platelet volume ratio Platelets (Bld) [#/Vol] 221 10*3/uL 140 - 440 10*3/uL [facility] RBC (Bld) [#/Vol] 4.59 10*6/uL 3.8 - 5.20 10*6/uL [facility] WBC (Bld) [#/Vol] 13.4 10*3/uL High 3.6 - 10.7 10*3/uL [facility] Comprehensive metabolic 1998 panelon 04-01-2023 Albumin [Mass/Vol] 4.5 g/dL 3.5 - 5.0 g/dL [facility] ALP [Catalytic activity/Vol] 98 U/L 38 - 126 U/L [facility] ALT [Catalytic activity/Vol] 20 U/L 0 - 34 U/L [facility] Anion gap [Moles/Vol] 8 mmol/L 3 - 13 mmol/L [facility] AST [Catalytic activity/Vol] 28 U/L 15 - 46 U/L [facility] Bilirubin [Mass/Vol] 0.5 mg/dL 0.2 - 1 .3 mg/dL [facility] Calcium [Mass/Vol] 9.0 mg/dL 8.4 - 10. 4 mg/dL [facility] Chloride [Moles/Vol] 107 mmol/L 98 - 10 7 mmol/L [facility] CO2 [Moles/Vol] 23 mmol/L 22 - 30 mmol/L [facility] Creatinine [Mass/Vol] 0.55 mg/dL 0.52 - 1.04 mg/dL [facility] GFR/1.73 sq M.predicted MDRD (S/P/Bld) [Vol rate/Area] - PINF [facility] [employer] Comment on above: Calculation based on the Chronic Kidney Disease Epidemiology Collaboration (CKD-EPI) equation refit without adjustment for race Glucose [Mass/Vol] 196 mg/dL High 70 - 100 mg/dL [facility] Interpretation and review of laboratory results Abnormal [facility] [employer] Potassium [Moles/Vol] 3.9 mmol/L 3.5 - 5.1 mmol/L [facility] [employer] Protein [Mass/Vol] 7.5 g/dL 6.3 - 8.2 g/dL [facility] Sodium [Moles/Vol] 138 mmol/L 135 - 145 mmol/L [facility] Urea nitrogen [Mass/Vol] 21 mg/dL High 7 - 17 mg/dL [facility] US Heart TransthoracicOrdere d By: Miller Kim on 03-26-2023 AR Max Velocity PISA 3.9 m/s [facility] [employer] Phone: AR PHT 578.7 ms [facility] [employer] Work Phone: E/E' Lateral 9.00 [facility] [employer] Phone: E/E' Ratio (Averaged) 9.64 [facility] [employer] Work Phone: E/E' Septal 10.29 [facility] [employer] Phone: EF BP 63 % 55 - 100 % [facility] [employer] Phone: Est. RA Pressure 3 mmHg [facility] Work Phone: Fractional Shortening 2D 35 % 28 - 44 % [facility] [employer] Work Phone: Global Longitudinal Strain -17.0 % [facility] [employer] Phone: Interpretation and review of laboratory results Abnormal [facility] [employer] Phone: IVC Diameter 1.6 cm [facility] [employer] Work Phone: IVSd 0.9 cm 0.6 - 0.9 cm [facility] [employer] Phone: LA Volume 2C 71 mL Abnormal 22 - 52 mL [facility] [employer] Phone: LA Volume 4C 37 mL 22 - [address] [facility] Work Phone: LA Volume A/L [address] [facility] Work Phone: LA Volume Index 2C 36 mL/m2 Abnormal 16 - 34 mL/m2 [facility] Work Phone: LA Volume Index 4C 19 mL/m2 16 - 34 mL/m2 [facility] Work Phone: LA Volume Index A/L 28 mL/m2 16 - 34 mL/m2 [facility] Work Phone: LV E' Lateral Velocity 8 cm/s [place] [facility] Work Phone: LV E' Septal Velocity 7 cm/s [facility] Work Phone: LV EDV A2C 70 mL [facility] Work Phone: LV EDV A4C 92 mL [facility] Work Phone: LV EDV BP 81 mL 56 - 104 mL [facility] Work Phone: LV EDV Index A2C 35 mL/m2 [facility] Work Phone: [phone] LV EDV Index A4C 46 mL/m2 [facility] Work Phone: LV EDV Index BP 41 mL/m2 [facility] Work Phone: LV Ejection Fraction A2C 59 % [facility] Work Phone: LV Ejection Fraction A4C 67 % [facility] Work Phone: LV ESV A2C 29 mL [facility] Work Phone: LV ESV A4C 31 mL [facility] Work Phone: LV ESV BP 30 mL 19 - [address] [facility] Work Phone: LV ESV Index A2C 15 mL/m2 [facility] Work Phone: LV ESV Index A4C 16 mL/m2 [facility] Work Phone: LV ESV Index BP 15 mL/m2 [facility] Work Phone: LV Mass 2D 117.9 g 67 - 162 g [facility] [employer] Work Phone: [phone] LV Mass 2D Index 59.2 g/m2 43 - 95 g/m2 [facility] [employer] Work Phone: [phone] LV RWT Ratio 0.30 [facility] [employer] Work Phone: [phone] LVIDd 4.6 cm 3.9 - 5.3 cm [facility] [employer] Work Phone: [phone] LVIDd Index 2.31 cm/m2 [facility] [employer] Work Phone: [phone] LVIDs 3.0 cm [facility] [employer] Work Phone: [phone] LVIDs Index 1.51 cm/m2 [facility] [employer] Work Phone: LVOT Area 2.8 cm2 [facility] [employer] Work Phone: LVOT Cardiac Output 4.1 liter/minute [facility] [employer] Work Phone: [phone] LVOT Diameter 1.9 cm [facility] [employer] Work Phone: [phone] LVOT Mean Gradient 2 mmHg [facility] [employer] Work Phone: [phone] LVOT Peak Gradient 3 mmHg [facility] [employer] Work Phone: LVOT Peak Velocity 0.9 m/s [facility] [employer] Work Phone: [phone] LVOT Stroke Volume Index 28.5 mL/m2 [facility] [employer] Work Phone: [phone] LVOT SV 56.7 ml [facility] [employer] Work Phone: [phone] LVOT VTI 20.0 cm [facility] [employer] Work Phone: [phone] LVPWd 0.7 cm 0.6 - 0.9 cm [facility] [employer] Work Phone: [phone] MV A Velocity 1.10 m/s [facility] [employer] Work Phone: [phone] MV E Velocity 0.72 m/s [facility] Work Phone: MV E Wave Deceleration Time 198.7 ms [employer] Work Phone: MV E/A [facility].[address] [facility] Work Phone: RV Free Wall Peak S' 11 cm/s [facility] Work Phone: TAPSE 2.4 cm 1.[address] [facility] Work Phone: [facility] Work Phone: US Heart Transthoracicon Left Ventricle: [...] CV CPACS US LOC BREAST LEFTon 023 [facility] BNPon 02-06-2023 Natriuretic peptide B (Bld) [Mass/Vol] 29 pg/mL Normal 0 - 99 [facility] Comment on above: Result Comment: . <1 [...] information. Performed By: #### B NP2 #### [facility] [address] [place] [address] CBC AND DIFFERENTIALon 02-06 % AUTOMATED IMMATURE GRAN 0.3 % Normal 0.0 - 0.9 [facility] Comment on above: Result Comment: Charo ture Granulocyte Count (IG) includes promyelocytes, myelocytes and metamyelocytes but does not include bands. Percent differential counts (%) should be interpreted in the context of the absolute cell counts (cells/L). Performed By: #### C BCDF #### [facility] [address] [place] [address] Basophils (Bld) [#/Vol] 0.03 10*3/uL Normal 0.00 - 0.1 0 [facility] Comment on above: Performed By: #### C BCDF #### [facility] [address] [place] [address] Basophils/100 WBC (Bld) 0.4 % Normal 0.0 - 2.0 [facility] Comment on above: Performed By: #### C BCDF #### [facility] [address] [place] [address] Eosinophils (Bld) [#/Vol] 0.11 10*3/uL Normal 0.00 - 0.40 [facility] Comment on above: Performed By: #### C BCDF #### [facility] [address] [place] [address] Eosinophils/100 WBC (Bld) 1.6 % Normal 0.0 - 6.0 [facility] Comment on above: Performed By: #### C BCDF #### [facility] [address] [place] [address] Erythrocyte distribution width (RBC) [Ratio] 14.0 % Normal 11.5 - 14.5 [facility] Comment on above: Performed By: #### C BCDF #### [facility] [address] [place] [address] Hematocrit (Bld) [Volume fraction] 44.5 % Normal 36.0 - 46.0 [facility] Comment on above: Performed By: #### C BCDF #### [facility] [address] [place] [address] Hemoglobin (Bld) [Mass/Vol] 14.3 g/dL Normal 12.0 - 16.0 [facility] Comment on above: Performed By: #### C BCDF #### [facility] [address] [place] [address] Lymphocytes (Bld) [#/Vol] 1.71 10*3/uL Normal 0.80 - 3.00 [facility] Comment on above: Performed By: #### C BCDF #### [facility] [address] [place] [address] Lymphocytes/100 WBC (Bld) 24.3 % Normal 13.0 - 44.0 [facility] Comment on above: Performed By: #### C BCDF #### [facility] [address] [place] [address] MCHC (RBC) [Mass/Vol] 32.1 g/dL Normal 32.0 - 36.0 [facility] Comment on above: Performed By: #### C BCDF #### [facility] [address] [place] [address] MCV (RBC) [Entitic vol] 95 fL Normal 80 - 100 U [facility] Comment on above: Performed By: #### C BCDF #### [facility] [address] [place] [address] Monocytes (Bld) [#/Vol] 0.61 10*3/uL Normal 0.05 - 0.8 0 [facility] Comment on above: Performed By: #### C BCDF #### [facility] [address] [place] [address] Monocytes/100 WBC (Bld) 8.7 % Normal 2.0 - 10.0 [facility] Comment on above: Performed By: #### C BCDF #### [facility] [address] [place] [address] Neutrophils (Bld) [#/Vol] 4.56 10*3/uL Normal 1.60 - 5.50 [facility] Comment on above: Performed By: #### C BCDF #### [facility] [address] [place] [address] Neutrophils/100 WBC (Bld) 64.7 % Normal 40.0 - 80.0 [facility] Comment on above: Performed By: #### C BCDF #### [facility] [address] [place] [address] NUCLEATED RBC 0.0 /100 WBC Normal 0.0-0.0 [facility] Comment on above: Performed By: #### C BCDF #### [facility] [address] [place] [address] Platelets (Bld) [#/Vol] 243 10*3/uL Normal 150 - 450 [facility] Comment on above: Performed By: #### C BCDF #### [facility] [address] [place] [address] RBC 4.70 x10E12/L Normal 4.00 - 5.20 [facility] Comment on above: Performed By: #### C BCDF #### [facility] [address] [place] [address] WBC (Bld) [#/Vol] 7.0 10*3/uL Normal 4.4 - 11.3 [facility] Comment on above: Performed By: #### C BCDF #### [facility] [address] [place] [address] COMPREHENSIVE PANELon 2022 Albumin [Mass/Vol] 4.4 g/dL Normal 3.4 - 5.0 [facility] Comment on above: Performed By: #### T HYDS #### [facility] [address] [place] [address] ALP [Catalytic activity/Vol] 84 U/L Normal 33 - 136 [facility] Comment on above: Performed By: #### T HYDS #### [facility] [address] [place] [address] ALT [Catalytic activity/Vol] 14 U/L Normal 7 - 45 [facility] Comment on above: Result Comment: Suzanne ents treated with Sulfasalazine may generate falsely decreased results for ALT. Performed By: #### T HYDS #### [facility] [address] [place] [address] Anion gap [Moles/Vol] 17 mmol/L Normal 10 - 20 [facility] Comment on above: Performed By: #### T HYDS #### [facility] [address] [place] [address] AST [Catalytic activity/Vol] 17 U/L Normal 9 - 39 [facility] Comment on above: Performed By: #### T HYDS #### [facility] [address] [place] [address] Bilirubin [Mass/Vol] 0.6 mg/dL Normal 0.0 - 1.2 [facility] Comment on above: Performed By: #### T HYDS #### [facility] [address] [place] [address] Calcium [Mass/Vol] 9.3 mg/dL Normal 8.6 - 10.6 [facility] Comment on above: Performed By: #### T HYDS #### [facility] [address] [place] [address] Chloride [Moles/Vol] 104 mmol/L Normal 98 - 107 [facility] Comment on above: Performed By: #### T HYDS #### [facility] [address] [place] [address] Creatinine [Mass/Vol] 0.69 mg/dL Normal 0.50 - 1.05 [facility] Comment on above: Performed By: #### T HYDS #### [facility] [address] [place] [address] GFR/1.73 sq M.predicted among non-blacks MDRD (S/P/Bld) [Vol rate/Area] 89 mL/min/{1.73_m2} Normal >90 [facility] Comment on above: Result Comment: CALC ULATIONS OF ESTIMATED GFR ARE PERFORMED USING THE 2020 CKD-EPI STUDY REFIT EQUATION WITHOUT THE RACE VARIABLE FOR THE IDMS-TRACEABLE CREATININE METHODS. https://jasn.asnjournals.org/content/early/ASN.2020 956504 Performed By: #### T HYDS #### [facility] [address] [place] [address] Glucose [Mass/Vol] 83 mg/dL Normal 74 - 99 [facility] Comment on above: Performed By: #### T HYDS #### [facility] [address] [place] [address] HCO3 (Bld) [Moles/Vol] 26 mmol/L Normal 21 - 32 [facility] Comment on above: Performed By: #### T HYDS #### [facility] [address] [place] [address] Potassium [Moles/Vol] 4.2 mmol/L Normal 3.5 - 5.3 [facility] Comment on above: Performed By: #### T HYDS #### [facility] [address] [place] [address] Protein [Mass/Vol] 7.0 g/dL Normal 6.4 - 8.2 [facility] Comment on above: Performed By: #### T HYDS #### [facility] [address] [place] [address] Sodium [Moles/Vol] 143 mmol/L Normal 136 - 145 [facility] Comment on above: Performed By: #### T HYDS #### [facility] [address] [place] [address] Urea nitrogen [Mass/Vol] 17 mg/dL Normal 6 - 23 [facility] Comment on above: Performed By: #### T HYDS #### [facility] [address] [place] [address] TSH WITH REFLEX TO FREE T4 I F ABNORMALon 02-06-2023 TSH Qn 2.70 m[IU]/L Normal 0.44 - 3.98 [facility] Comment on above: Result Comment: TSH testing is performed using different testing methodology at [facility] than at other [facility]. Direct result comparisons should only be made within the same method. Performed By: #### T HYDS #### [facility] [address] [place] [address] UA MICROSCOPICon 02-06-2023 Mucus Ql (Urine sed) 1+ /LPF Normal [facility] Comment on above: Performed By: #### T HYDS #### [facility] [address] [place] [address] RBC 2 /HPF Normal 0-5 [facility] Comment on above: Performed By: #### T HYDS #### [facility] [address] [place] [address] SQUAMOUS EPITH. CELLS 3 /HPF Normal [facility] Comment on above: Performed By: #### T HYDS #### [facility] [address] [place] [address] WBC 6 /HPF Abnormal 0-5 [facility] Comment on above: Performed By: #### T HYDS #### [facility] [address] [place] [address] URINALYSISon 02-06-2023 Appearance (U) CLEAR Normal CLEAR [facility] Comment on above: Performed By: #### U A #### [facility] [address] [place] [address] Bilirubin Ql (U) Negative Normal NEGATIVE [facility] Comment on above: Performed By: #### U A #### [facility] [address] [place] [address] Color (U) YELLOW Normal STRAW,YELLOW [facility] Comment on above: Performed By: #### U A #### [facility] [address] [place] [address] Glucose Ql (U) Negative Normal NEGATIVE [facility] Comment on above: Performed By: #### U A #### [facility] [address] [place] [address] Hemoglobin Ql (U) Negative Normal NEGATIVE [facility] Comment on above: Performed By: #### U A #### [facility] [address] [place] [address] Ketones Ql (U) Negative Normal NEGATIVE [facility] Comment on above: Performed By: #### U A #### [facility] [address] [place] [address] Leukocyte esterase Test strip Ql (U) LARGE (3+) Abnormal NEGATIVE [facility] Comment on above: Performed By: #### U A #### [facility] [address] [place] [address] Nitrite Ql (U) Negative Normal NEGATIVE [facility] Comment on above: Performed By: #### U A #### [facility] [address] [place] [address] pH (U) 7.0 [pH] Normal 5.0 - 8.0 [facility] Comment on above: Performed By: #### U A #### [facility] [address] [place] [address] Protein Ql (U) Negative Normal NEGATIVE [facility] Comment on above: Performed By: #### U A #### [facility] [address] [place] [address] Specific gravity (U) [Rel density] 1.011 Normal 1.005 - 1.035 [facility] Comment on above: Performed By: #### U A #### [facility] [address] [place] [address] Urobilinogen (U) [Mass/Vol] mg/dL Normal 0.0 - 1.9 [facility] Comment on above: Performed By: #### U A #### [facility] [address] [place] [address] CBC AND DIFFERENTIALon 02-05 Lab Specimen Source Normal [facility] Comment on above: Performed By: #### C BCDF #### [facility] [address] [place] [address] Performed By: #### U A #### [facility] [address] [place] [address] Performed By: #### B NP2 #### [facility] [address] [place] [address] Performed By: #### T HYDS #### [facility] [address] [place] [address] LEE DIAGNOSTIC LEFTon 2022 [facility] US BIOPSY BREAST LEFTon 08-0 [facility] LEE DIAG W SHIVA LEFTon 01-21 [facility] No Panel Informationon 01-21 [facility] Dermatopathologyon Dermatopathology Name MADIHA PERALES Pathologist: ARCHIE MORENO MD Date of Procedure: 10/30/2022 Date Received: 10/31/2022 Date Reported 11/01/2022 Submitting Physician: DARA SORENSEN DO Location: Other External # FINAL DIAGNOSIS SKIN, MID UPPER BACK, BIOPSY: INFLAMED SEBORRHEIC KERATOSIS, PRESENT ON THE DEEP AND PERIPHERAL MARGIN. Electronically Signed Out by RACHIE MORENO M.D. Electronically Signed Out By ARCHIE MORENO MD/[facility] By the signature on this report, the individual or group listed as making the Final Interpretation/Diagn osis certifies that they have reviewed this case. Diagnostic interpretation performed at [facility] [address] [place] [address], [facility] [address] Microscopic Description: Microscopic analysis shows a papillomatous [...] is a butler piece of skin measuring [id number]. The specimen is inked and embedded in toto. dcp/11/01/2022 [facility] [place] [id number] [place] [address] Normal [facility] Comment on above: Performed By: #### T HYDS #### [facility] [address] [place] [address] Shaving Epidermal/Dermalon 0 10-30-2022 Dara Sorensen DO [...] The patient was given instructions for aftercare. [facility] Work Phone: [facility] Work Phone: UA MICROSCOPICon 07-18-2022 RBC None Normal 0-5 [facility] Comment on above: Performed By: #### U AMIC #### [facility] [address] [place] [address] WBC None Normal 0-5 [facility] Comment on above: Performed By: #### U AMIC #### [facility] [address] [place] [address] URINALYSISon 07-18-2022 Appearance (U) CLEAR Normal CLEAR [facility] Comment on above: Performed By: #### U A #### [facility] [address] [place] [address] Bilirubin Ql (U) Negative Normal NEGATIVE [facility] Comment on above: Performed By: #### U A #### [facility] [address] [place] [address] Color (U) YELLOW Normal STRAW,YELLOW [facility] Comment on above: Performed By: #### U A #### [facility] [address] [place] [address] Glucose Ql (U) Negative Normal NEGATIVE [facility] Comment on above: Performed By: #### U A #### [facility] [address] [place] [address] Hemoglobin Ql (U) TRACE Abnormal NEGATIVE [facility] Comment on above: Performed By: #### U A #### [facility] [address] [place] [address] Ketones Ql (U) Negative Normal NEGATIVE [facility] Comment on above: Performed By: #### U A #### [facility] [address] [place] [address] Leukocyte esterase Test strip Ql (U) Negative Normal NEGATIVE [facility] Comment on above: Performed By: #### U A #### [facility] [address] [place] [address] Nitrite Ql (U) Negative Normal NEGATIVE [facility] Comment on above: Performed By: #### U A #### [facility] [address] [place] [address] pH (U) 7.0 [pH] Normal 5.0 - 8.0 [facility] Comment on above: Performed By: #### U A #### [facility] [address] [place] [address] Protein Ql (U) Negative Normal NEGATIVE [facility] Comment on above: Performed By: #### U A #### [facility] [address] [place] [address] Specific gravity (U) [Rel density] 1.025 Normal 1.005 - 1.035 [facility] Comment on above: Performed By: #### U A #### [facility] [address] [place] [address] Urobilinogen (U) [Mass/Vol] mg/dL Normal 0.0 - 1.9 [facility] Comment on above: Performed By: #### U A #### [facility] [address] [place] [address] Urinalysison 07-18-2022 Color (U) YELLOW See Below [facility] Work Phone: Comment on above: Reference Range: STR AW,YELLOW Glucose Ql (U) Negative NEGATIVE [facility] Work Phone: [phone] Ketones Ql (U) Negative NEGATIVE [facility] Work Phone: [phone] Leukocyte esterase Test strip Ql (U) Negative NEGATIVE [facility] Work Phone: [phone] pH (U) 7.0 [pH] 5.0 - 8.0 [facility] Work Phone: [phone] Protein (U) [Mass/Vol] Negative NEGATIVE [facility] Work Phone: [phone] RBC (U) [#/Vol] TRACE Abnormal NEGATIVE [facility] Work Phone: Specific gravity (U) [Rel density] 1.025 1 See Below [facility] Work Phone: Comment on above: Reference Range: 1.0 05 - 1.035 Urinalysis Negative NEGATIVE [facility] Work Phone: [phone] Urinalysis <2.0 0.0 - 1.9 [facility] Work Phone: [phone] Urinalysis CLEAR CLEAR [facility] Work Phone: [phone] Urinalysis, Microscopicon Urinalysis, Microscopic None 0-5 M [facility] Work Phone: [phone] CBC AND DIFFERENTIALon 07-17 % AUTOMATED IMMATURE GRAN 0.5 % Normal 0.0 - 0.9 [facility] Comment on above: Result Comment: Charo ture Granulocyte Count (IG) includes promyelocytes, myelocytes and metamyelocytes but does not include bands. Percent differential counts (%) should be interpreted in the context of the absolute cell counts (cells/L). Performed By: #### C BCDF #### [facility] [address] [place] [address] Basophils (Bld) [#/Vol] 0.03 10*3/uL Normal 0.00 - 0.1 0 [facility] Comment on above: Performed By: #### C BCDF #### [facility] [address] [place] [address] Eosinophils (Bld) [#/Vol] 0.18 10*3/uL Normal 0.00 - 0.40 [facility] Comment on above: Performed By: #### C BCDF #### [facility] [address] [place] [address] Eosinophils/100 WBC (Bld) 2.8 % Normal 0.0 - 6.0 [facility] Comment on above: Performed By: #### C BCDF #### [facility] [address] [place] [address] Lymphocytes (Bld) [#/Vol] 1.45 10*3/uL Normal 0.80 - 3.00 [facility] Comment on above: Performed By: #### C BCDF #### [facility] [address] [place] [address] Monocytes (Bld) [#/Vol] 0.66 10*3/uL Normal 0.05 - 0.8 0 [facility] Comment on above: Performed By: #### C BCDF #### [facility] [address] [place] [address] Neutrophils (Bld) [#/Vol] 4.08 10*3/uL Normal 1.60 - 5.50 [facility] Comment on above: Performed By: #### C BCDF #### [facility] [address] [place] [address] NUCLEATED RBC 0.0 /100 WBC Normal 0.0-0.0 [facility] Comment on above: Performed By: #### C BCDF #### [facility] [address] [place] [address] RBC 4.48 x10E12/L Normal 4.00 - 5.20 [facility] Comment on above: Performed By: #### C BCDF #### [facility] [address] [place] [address] COMPREHENSIVE PANELon 2022 Albumin [Mass/Vol] 4.0 g/dL Normal 3.4 - 5.0 [facility] Comment on above: Performed By: #### C MP #### [facility] [address] [place] [address] ALP [Catalytic activity/Vol] 89 U/L Normal 33 - 136 -Soha [facility] Work Phone: Comment on above: Performed By: #### C MP #### [facility] [address] [place] [address] ALT [Catalytic activity/Vol] 15 U/L Normal 7 - 45 [facility] Comment on above: Result Comment: Suzanne ents treated with Sulfasalazine may generate falsely decreased results for ALT. Performed By: #### C MP #### [facility] [address] [place] [address] Anion gap [Moles/Vol] 12 mmol/L Normal 10 - 20 - Soha [facility] Work Phone: Comment on above: Performed By: #### C MP #### [facility] [address] [place] [address] AST [Catalytic activity/Vol] 17 U/L Normal 9 - 39 [facility] Comment on above: Performed By: #### C MP #### [facility] [address] [place] [address] Bilirubin [Mass/Vol] 0.7 mg/dL Normal 0.0 - 1.2 -Vee bush [facility] Work Phone: Comment on above: Performed By: #### C MP #### [facility] [address] [place] [address] Calcium [Mass/Vol] 9.3 mg/dL Normal 8.6 - 10.6 [facility] Work Phone: Comment on above: Performed By: #### C MP #### [facility] [address] [place] [address] Chloride [Moles/Vol] 105 mmol/L Normal 98 - 107 [facility] Work Phone: Comment on above: Performed By: #### C MP #### [facility] [address] [place] [address] Creatinine [Mass/Vol] 0.66 mg/dL Normal 0.50 - 1.05 [facility] Work Phone: Comment on above: Reference Range: 0.5 0 - 1.05 Performed By: #### C MP #### [facility] [address] [place] [address] eGFR FEMALE >90 Normal >90 [facility] Comment on above: Result Comment: CALC ULATIONS OF ESTIMATED GFR ARE PERFORMED USING THE 2020 CKD-EPI STUDY REFIT EQUATION WITHOUT THE RACE VARIABLE FOR THE IDMS-TRACEABLE CREATININE METHODS. https://jasn.asnjournals.org/content/early/ASN.2020 054265 Performed By: #### C MP #### [facility] [address] [place] [address] Glucose [Mass/Vol] 78 mg/dL Normal 74 - 99 [facility] Work Phone: Comment on above: Performed By: #### C MP #### [facility] [address] [place] [address] HCO3 (Bld) [Moles/Vol] 31 mmol/L Normal 21 - 32 [facility] Comment on above: Performed By: #### C MP #### [facility] [address] [place] [address] Potassium [Moles/Vol] 4.2 mmol/L Normal 3.5 - 5.3 [facility] Work Phone: Comment on above: Performed By: #### C MP #### [facility] [address] [place] [address] Protein [Mass/Vol] 6.7 g/dL Normal 6.4 - 8.2 [facility] Work Phone: Comment on above: Performed By: #### C MP #### [facility] [address] [place] [address] Sodium [Moles/Vol] 144 mmol/L Normal 136 - 145 [facility] Work Phone: Comment on above: Performed By: #### C MP #### [facility] [address] [place] [address] Urea nitrogen [Mass/Vol] 15 mg/dL Normal 6 - 23 [facility] Work Phone: Comment on above: Performed By: #### C MP #### [facility] [address] [place] [address] Complete Blood Count + Diffe rentialon 07-17-2022 Basophils/100 WBC (Bld) 0.5 % Normal 0.0 - 2.0 M [facility] Work Phone: Comment on above: Performed By: #### C BCDF #### [facility] [address] [place] [address] Erythrocyte distribution width (RBC) [Ratio] 14.1 % Normal 11.5 - 14.5 [facility] Work Phone: Comment on above: Reference Range: 11. 5 - 14.5 Performed By: #### C BCDF #### [facility] [address] [place] [address] Hematocrit (Bld) [Volume fraction] 42.8 % Normal 36.0 - 46.0 [facility] Work Phone: Comment on above: Reference Range: 36. 0 - 46.0 Performed By: #### C BCDF #### [facility] [address] [place] [address] Hemoglobin (Bld) [Mass/Vol] 13.5 g/dL Normal 12.0 - 16.0 [facility] Work Phone: Comment on above: Reference Range: 12. 0 - 16.0 Performed By: #### C BCDF #### [facility] [address] [place] [address] Lymphocytes/100 WBC (Bld) 22.6 % Normal 13.0 - 44.0 [facility] Work Phone: Comment on above: Reference Range: 13. 0 - 44.0 Performed By: #### C BCDF #### [place] [address] [place] [address] MCHC (RBC) [Mass/Vol] 31.5 g/dL Low 32.0 - 36.0 [facility] Work Phone: Comment on above: Reference Range: 32. 0 - 36.0 Performed By: #### C BCDF #### [facility] [address] [place] [address] MCV (RBC) [Entitic vol] 96 fL Normal 80 - 100 M [facility] Work Phone: Comment on above: Performed By: #### C BCDF #### [facility] [address] [place] [address] Monocytes/100 WBC (Bld) 10.3 % Normal 2.0 - 10.0 M [facility] Work Phone: Comment on above: Performed By: #### C BCDF #### [facility] [address] [place] [address] Neutrophils/100 WBC (Bld) 63.3 % Normal 40.0 - 80.0 [facility] Work Phone: Comment on above: Reference Range: 40. 0 - 80.0 Performed By: #### C BCDF #### [facility] [address] [place] [address] Platelets (Bld) [#/Vol] 208 10*3/uL Normal 150 - 450 [facility] Work Phone: Comment on above: Performed By: #### C BCDF #### [facility] [address] [place] [address] WBC (Bld) [#/Vol] 6.4 10*3/uL Normal 4.4 - 11.3 [facility] Work Phone: Comment on above: Performed By: #### C BCDF #### [facility] [address] [place] [address] RBC (Bld) [#/Vol] 4.48 {x10E12/L} See Below [facility] Work Phone: Comment on above: Reference Range: 4.0 0 - 5.20 Complete Blood Count + Differential 0.03 {x10E9/L} See Below [facility] Work Phone: Comment on above: Reference Range: 0.0 0 - 0.10 Complete Blood Count + Differential 0.18 {x10E9/L} See Below [facility] Work Phone: Comment on above: Reference Range: 0.0 0 - 0.40 Complete Blood Count + Differential 0.66 {x10E9/L} See Below [facility] Work Phone: Comment on above: Reference Range: 0.0 5 - 0.80 Complete Blood Count + Differential 1.45 {x10E9/L} See Below [facility] Work Phone: Comment on above: Reference Range: 0.8 0 - 3.00 Complete Blood Count + Differential 4.08 {x10E9/L} See Below [facility] Work Phone: Comment on above: Reference Range: 1.6 0 - 5.50 Complete Blood Count + Differential 2.8 % 0.0 - 6.0 [facility] Work Phone: Complete Blood Count + Differential 0.5 % 0.0 - 0.9 [facility] Work Phone: Comment on above: Immature Granulocyte Count (IG) includes promyelocytes, myelocytes and metamyelocytes but does not include bands. Percent differential counts (%) should be interpreted in the context of the absolute cell counts (cells/L). Complete Blood Count + Differential 0.0 {/100_WBC} 0.0-0.0 [facility] Work Phone: LIPID PANEL (CORONARY RISK 2 )on 07-17-2022 Cholesterol in VLDL [Mass/Vol] 18 mg/dL Normal 0 - 40 [facility] Comment on above: Performed By: #### L IPID #### [facility] [address] [place] [address] Laboratory - Chemistry and C hemistry - challengeon 07-17-2022 Albumin BCP dye [Mass/Vol] 4.0 g/dL 3.4 - 5.0 [facility] Work Phone: ALT With P-5'-P [Catalytic activity/Vol] 15 U/L 7 - 45 [facility] Work Phone: Comment on above: Patients treated wit h Sulfasalazine may generate falsely decreased results for ALT. AST With P-5'-P [Catalytic activity/Vol] 17 U/L 9 - 39 [facility] Work Phone: CO2 [Moles/Vol] 31 mmol/L 21 - 32 [facility] Work Phone: Lipid Panelon 07-17-2022 Cholesterol [Mass/Vol] 151 mg/dL Normal 0 - 199 [facility] Work Phone: Comment on above: . AGE [...] Performed By: #### L IPID #### [facility] [address] [place] [address] Cholesterol in HDL [Mass/Vol] 52.6 mg/dL Normal [facility] Work Phone: Comment on above: . AGE [...] Performed By: #### L IPID #### [facility] [address] [place] [address] Cholesterol in LDL [Mass/Vol] 80 mg/dL Normal 0 - 99 [facility] Work Phone: Comment on above: . NEAR [...] Performed By: #### L IPID #### [facility] [address] [place] [address] Cholesterol.total/[place] sterol in HDL [Mass ratio] 2.9 {ratio} Normal [facility] Work Phone: Comment on above: REF VALUESDESIRABLE < 3.4HIGH RISK > 5.0 Result Comment: REF VALUES DESIRABLE < 3.4 HIGH RISK > 5.0 Performed By: #### L IPID #### [facility] [address] [place] [address] Triglyceride [Mass/Vol] 90 mg/dL Normal 0 - 149 M [facility] Work Phone: Comment on above: . [...] Performed By: #### L IPID #### [facility] [address] [place] [address] Lipid Panel 18 mg/dL 0 - 40 [facility] Work Phone: No Panel Informationon 07-17 >90 >90 [facility] Work Phone: Comment on above: CALCULATIONS OF MATEO MATED GFR ARE PERFORMED USING THE 2020 CKD-EPI STUDY REFIT EQUATION WITHOUT THE RACE VARIABLE FOR THE IDMS-TRACEABLE CREATININE METHODS.https://jasn.asnjournals.org/content// ASN.4588876412 Not at all - 0 [facility] Work Phone: Several days - 1 [facility] Work Phone: Minimal Anxiety [facility] Work Phone: Not difficult at all [facility] Work Phone: Comment on above: How difficult have t hose problems made it for you to do your work, take care of things at home, or get along with other people? 1 1 [facility] Work Phone: Comment on above: Over [...] PHQ-9on 07-17-2022 Adult depression screening assessment No [facility] Work Phone: Adult depression screening assessment Yes [facility] Work Phone: PHQ-9 0-Not at all [facility] Work Phone: PHQ-9 Large [facility] Work Phone: TSH WITH REFLEX TO FREE T4 I F ABNORMALon 07-17-2022 TSH Qn 2.65 m[IU]/L Normal 0.44 - 3.98 [facility] Work Phone: Comment on above: Reference Range: 0.4 4 - 3.98 TSH testing is performed using different testing methodology at [facility] than at [facility]. Direct result comparisons should only be made within the same method. Result Comment: TSH testing is performed using different testing methodology at [facility] than at [facility]. Direct result comparisons should only be made within the same method. Performed By: #### T HYDS #### [facility] [address] [place] [address] URINALYSISon 07-17-2022 ASCORBIC ACID Canceled Normal [facility] Comment on above: Order Comment: [...] hours. Performed By: #### U A #### [facility] [address] [place] [address] Bilirubin Ql (U) Canceled Normal [facility] Comment on above: Order Comment: TEST URINALYSIS WAS CANCELLED, 07/17/2022 08:36 pt to return w sample. Performed By: #### U A #### [facility] [address] [place] [address] Hemoglobin Ql (U) Canceled Normal [facility] Comment on above: Order Comment: TEST URINALYSIS WAS CANCELLED, 07/17/2022 08:36 pt to return w sample. Performed By: #### U A #### [facility] [address] [place] [address] Nitrite Ql (U) Canceled Normal [facility] Comment on above: Order Comment: TEST URINALYSIS WAS CANCELLED, 07/17/2022 08:36 pt to return w sample. Performed By: #### U A #### [facility] [address] [place] [address] pH Canceled Normal [facility] Comment on above: Order Comment: TEST URINALYSIS WAS CANCELLED, 07/17/2022 08:36 pt to return w sample. Performed By: #### U A #### [facility] [address] [place] [address] Protein Ql (U) Canceled Normal [facility] Comment on above: Order Comment: TEST URINALYSIS WAS CANCELLED, 07/17/2022 08:36 pt to return w sample. Performed By: #### U A #### [facility] [address] [place] [address] UROBILINOGEN Canceled Normal [facility] Comment on above: Order Comment: TEST URINALYSIS WAS CANCELLED, 07/17/2022 08:36 pt to return w sample. Performed By: #### U A #### [facility] [address] [place] [address] Urinalysison 07-17-2022 Appearance (U) Canceled Normal [facility] Work Phone: Comment on above: Order Comment: TEST URINALYSIS WAS CANCELLED, 07/17/2022 08:36 pt to return w sample. Performed By: #### U A #### [facility] [address] [place] [address] Color (U) Canceled Normal [facility] Work Phone: Comment on above: Order Comment: TEST URINALYSIS WAS CANCELLED, 07/17/2022 08:36 pt to return w sample. Performed By: #### U A #### [facility] [address] [place] [address] Glucose Ql (U) Canceled Normal [facility] Work Phone: Comment on above: Order Comment: TEST URINALYSIS WAS CANCELLED, 07/17/2022 08:36 pt to return w sample. Performed By: #### U A #### [facility] [address] [place] [address] Ketones Ql (U) Canceled Normal [facility] Work Phone: Comment on above: Order Comment: TEST URINALYSIS WAS CANCELLED, 07/17/2022 08:36 pt to return w sample. Performed By: #### U A #### [facility] [address] [place] [address] Leukocyte esterase Test strip Ql (U) Canceled Normal [facility] Work Phone: Comment on above: Order Comment: TEST URINALYSIS WAS CANCELLED, 07/17/2022 08:36 pt to return w sample. Performed By: #### U A #### [facility] [address] [place] [address] Specific gravity (U) [Rel density] Canceled Normal [facility] Work Phone: Comment on above: Order Comment: TEST URINALYSIS WAS CANCELLED, 07/17/2022 08:36 pt to return w sample. Performed By: #### U A #### [facility] [address] [place] [address] Protein (U) [Mass/Vol] Canceled [facility] Work Phone: RBC (U) [#/Vol] Canceled [facility] Work Phone: Urinalysis Canceled [facility] Work Phone: Comment on above: Concentrations > = 2 0 mg/dL of ascorbic acid can be expected to cause strong interference in the reactions testing for glucose, nitrite and blood. It is recommended to discontinue Vitamin C administration and retest in 10 hours. Blood Pressure Cuff Sizeon 0 01-10-2022 Adult depression screening assessment No [facility] Work Phone: Blood Pressure Cuff Size Large [facility] Work Phone: No Panel Informationon 01-10 Not at all - 0 [facility] Work Phone: Minimal Anxiety [facility] Work Phone: 0 1 [facility] Work Phone: Comment on above: Over [...] June, all reassuring. 'Scores and Scales' PHQ-9 [id number] 07:39AM PHQ-9 Depression Severity PHQ-9 #1. Little [...] problem list based on total score)4 CLIFTON-7 [id number] CLIFTON-7 Total Score0 Feeling nervous, anxious or [...] not included)... Normal Touchworks LEE SCREENINGon 09-21-2021 [facility]iology[facility] 09-21-2021 MG Breast Screening * * *Final Report* * * DATE OF EXAM: Sep 21 2021 8:28AM MAGO 0581 - [facility] SCREENING / PROCEDURE REASON: Z12.31 MAMMOGRAM SCREENING * * * * Physician Interpretation * * * * #[id number] - [facility] SCREENING BILATERAL DIGITA Normal -[facility] Work Phone: Blood Pressure Cuff Sizeon 0 07-12-2021 Blood Pressure Cuff Size Adult [facility] Work Phone: Laboratory - Chemistry and C hemistry - challengeon 07-12-2021 Albumin BCP dye [Mass/Vol] 4.1 g/dL 3.4 - 5.0 [facility] Work Phone: ALP [Catalytic activity/Vol] 80 U/L 33 - 136 [facility] Work Phone: [phone] ALT With P-5'-P [Catalytic activity/Vol] 13 U/L 7 - 45 [facility] Work Phone: Comment on above: Patients treated wit h Sulfasalazine may generate falsely decreased results for ALT. Anion gap [Moles/Vol] 12 mmol/L 10 - 20 [facility] Work Phone: AST With P-5'-P [Catalytic activity/Vol] 15 U/L 9 - 39 [facility] Work Phone: Bilirubin [Mass/Vol] 0.6 mg/dL 0.0 - 1.2 [facility] Work Phone: Calcium [Mass/Vol] 9.0 mg/dL 8.6 - 10.6 [facility] Work Phone: Chloride [Moles/Vol] 105 mmol/L 98 - 107 [facility] Work Phone: [phone] CO2 [Moles/Vol] 31 mmol/L 21 - 32 [facility] Work Phone: Creatinine [Mass/Vol] 0.63 mg/dL See Below [facility] Work Phone: Comment on above: Reference Range: 0.5 0 - 1.05 Glucose [Mass/Vol] 85 mg/dL 74 - 99 [facility] Work Phone: Potassium [Moles/Vol] 4.1 mmol/L 3.5 - 5.3 [facility] Work Phone: Protein [Mass/Vol] 6.6 g/dL 6.4 - 8.2 [facility] [place] [facility] Work Phone: Sodium [Moles/Vol] 144 mmol/L 136 - 145 [place] [facility] Work Phone: Urea nitrogen [Mass/Vol] 18 mg/dL 6 - 23 [facility] Work Phone: Medicare Annual Wellness Vis iton 07-12-2021 Medicare Annual Wellness Visit *Chief Complaint Medicare Wellness, fasting, high dose flu shot , brochure given, consent signed Follow up depression/anxiety Influenza Vaccine No to all questions Patient answered all questions prior to immunization 1: Have you ever had Guillain-Hatch syndrome? (a viral illness resulting in neurological [...] above in HPI. 'Scores and Scales' PHQ-9 [id number] 07:[id number] 06:50AM PHQ-9 Depression Severity IO PHQ2 PHQ-9 [...] Touchworks No Panel Informationon 07-12 >90 >90 [facility] Work Phone: Comment on above: CALCULATIONS OF MATEO MATED GFR ARE PERFORMED USING THE 2020 CKD-EPI STUDY REFIT EQUATION WITHOUT THE RACE VARIABLE FOR THE IDMS-TRACEABLE CREATININE METHODS.https://jasn.asnjournals.org/content// ASN.4606081110 PHQ-9on 07-12-2021 PHQ-9 1-Several days [facility] Work Phone: PHQ-9 0-Not at all [facility] Work Phone: PHQ-9 Not difficult at [...] * Physician Interpretation * * * * #[id number] - LEE SCREENINGBILATERAL DIGITAL SCREENING MAMMOGRAM WITH CAD: 08/15/2020HISTORY: Z12.31 Screening / Screening Mammogram-Patient reports NO symptoms.RESULT:TECH NIQUE: The study was acquired using full field digital technology and interpreted from soft copy.Current study was also evaluated with a Computer Aided Detection (CAD).Comparison is made to exams dated: 08/13/2019 mammogram, 06/25/2018 mammogram, and 06/06/2017 mammogram - [facility]. There are scattered fibroglandular elements in both breasts.There are benign post operative findings in the left breast.No significant masses, calcifications, or other findings are seen in either breast.There has been no significant interval change.IMPRESSION: BENIGN FINDINGThere is no mammographic evidence of malignancy. A 1 year screening mammogram is recommended.Marcos Aguilar/zara: 021 11:03:31Imaging Technologist(s): RT Dori(R)(M), [facility]: Normal over 40Mammogram BI-RADS: 2 Benign [...] Health, Family Medicine, and Medical/Surgical Oncology, the [facility] has carefully reviewed the data and reached [...] CAO MD on Aug 15 2020 11:03AM [id number] Normal [facility] Work Phone: Comment on above: Ordering Provider: Dorian Devi Antithyroid Perox. Abon 12-21 TPO Ab Qn [IU]/mL [facility] Work Phone: Comment on above: Negative: <=60 U/mLP ositive: >60 U/mL T3 - Free Triiodothyronine, Serumon 01-06-2020 Free T3 [Mass/Vol] 2.8 pg/mL 2.3 - 4.2 [facility] Work Phone: T4 - Free Thyroxine, Serumon 01-06-2020 Free T4 [Mass/Vol] 0.85 ng/dL See Below [facility] Work Phone: Comment on above: Reference Range: 0.7 8 - 1.48 Thyroxine Free testing is performed using different testing methodology at [facility] than at other [facility]. Direct result comparisons should only be made within the same method. TSH - Thyroid Stimulating Ho rmone, Serumon 01-06-2020 TSH Qn 4.54 {mIU/L} above high threshold See Below [facility] Work Phone: Comment on above: Reference Range: 0.4 4 - 3.98 TSH testing is performed using different testing methodology at [facility] than at other [facility]. Direct result comparisons should only be made within the same method. Vital Signs Date Time Vital Sign Value Performing Clinician Facility 09-17-2024 14:10-0400 Body height 165.1 cm Leonardo Stanec DO Work Phone: [facility] 09-17-2024 14:10-0400 Body mass index (BMI) [Ratio] 34.5 kg/m2 Leonardo Stanec DO Work Phone: [facility] 09-17-2024 14:10-0400 Body temperature 98.01 [degF] Leonardo Stanec DO Work Phone: [facility] 09-17-2024 14:10-0400 Body weight 94.03 kg Leonardo Stanec DO Work Phone: [facility] [place] 09-17-2024 14:10-0400 Diastolic blood pressure 73 mm[Hg] Leonardo Stanec DO Work Phone: [facility] [place] 09-17-2024 14:10-0400 Heart rate 73 /min Leonardo Stanec DO Work Phone: [facility] [place] 09-17-2024 14:10-0400 SaO2% (BldA) [Mass fraction] 94 % Leonardo Stanec DO Work Phone: [facility] [place] 09-17-2024 14:10-0400 Systolic blood pressure 109 mm[Hg] Leonardo Stanec DO Work Phone: [facility] 08-10-2024 09:28-0500 Body height 165.1 cm Stevie Fanny DO Work Phone: [employer] 08-10-2024 09:28-0500 Body mass index (BMI) [Ratio] 34.1 kg/m2 Stevie Fanny DO Work Phone: [employer] 08-10-2024 09:28-0500 Body temperature 98.91 [degF] Stevie Fanny DO Work Phone: [employer] 08-10-2024 09:28-0500 Body weight 92.94 kg Stevie Fanny DO Work Phone: [employer] 08-10-2024 09:28-0500 Diastolic blood pressure 59 mm[Hg] Stevie Fanny DO Work Phone: [facility] [employer] 08-10-2024 09:28-0500 Heart rate 76 /min Stevie Fanny DO Work Phone: [facility] [employer] 08-10-2024 09:28-0500 SaO2% (BldA) [Mass fraction] 97 % Stevie Fanny DO Work Phone: [facility] [employer] 08-10-2024 09:28-0500 Systolic blood pressure 105 mm[Hg] Stevie Fanny DO Work Phone: [facility] [employer] 03-16-2024 13:57-0400 Body height 165.1 cm Stevie Fanny DO Work Phone: [facility] [employer] 03-16-2024 13:57-0400 Body mass index (BMI) [Ratio] 33.46 kg/m2 Stevie Fanny DO Work Phone: [employer] 03-16-2024 13:57-0400 Body temperature 97.7 [degF] Stevie Fanny DO Work Phone: [facility] [employer] 03-16-2024 13:57-0400 Body weight 91.22 kg Stevie Fanny DO Work Phone: [facility] [employer] 03-16-2024 13:57-0400 Diastolic blood pressure 82 mm[Hg] Stevie Fanny DO Work Phone: [employer] 03-16-2024 13:57-0400 Heart rate 82 /min Stevie Fanny DO Work Phone: [employer] 03-16-2024 13:57-0400 Respiratory rate 20 /min Stevie Fanny DO Work Phone: [employer] 03-16-2024 13:57-0400 SaO2% (BldA) [Mass fraction] 96 % Stevie Fanny DO Work Phone: [facility] 03-16-2024 13:57-0400 Systolic blood pressure 127 mm[Hg] Stevie Escobedo DO Work Phone: [facility] 02-19-2024 09:13-0400 Body height 165.1 cm Torrie Choi MD Work Phone: [facility] 02-19-2024 09:13-0400 Body mass index (BMI) [Ratio] 34.45 kg/m2 Torrie Choi MD Work Phone: [facility] 02-19-2024 09:13-0400 Body weight 93.89 kg Torrie Choi MD Work Phone: [facility] 02-19-2024 09:13-0400 Diastolic blood pressure 84 mm[Hg] Torrie Choi MD Work Phone: [facility] 02-19-2024 09:13-0400 Heart rate 79 /min Torrie Choi MD Work Phone: [facility] 02-19-2024 09:13-0400 SaO2% (BldA) [Mass fraction] 97 % Torrie Choi MD Work Phone: [facility] 02-19-2024 09:13-0400 Systolic blood pressure 124 mm[Hg] Torrie Choi MD Work Phone: [facility] 02-18-2024 06:38-0400 Body mass index (BMI) [Ratio] 34.61 kg/m2 Marie Devi MD Work Phone: [facility] 02-18-2024 06:38-0400 Body temperature 98.1 [degF] Marie Devi MD Work Phone: [facility] 02-18-2024 06:38-0400 Body weight 94.35 kg Marie Devi MD Work Phone: [facility] 02-18-2024 06:38-0400 Diastolic blood pressure 71 mm[Hg] Marie Devi MD Work Phone: [facility] 02-18-2024 06:38-0400 Heart rate 72 /min Marie Devi MD Work Phone: [facility] 02-18-2024 06:38-0400 SaO2% (BldA) [Mass fraction] 91 % Marie Devi MD Work Phone: [facility] 02-18-2024 06:38-0400 Systolic blood pressure 109 mm[Hg] Marie Devi MD Work Phone: [facility] 02-03-2024 09:30-0400 Body mass index (BMI) [Ratio] 36.17 kg/m2 Stevie Fanny DO Work Phone: [employer] 02-03-2024 09:30-0400 Body temperature 98.4 [degF] Stevie Fanny DO Work Phone: [employer] 02-03-2024 09:30-0400 Body weight 95.57 kg Stevie Fanny DO Work Phone: [employer] 02-03-2024 09:30-0400 Diastolic blood pressure 63 mm[Hg] Stevie Fanny DO Work Phone: [employer] 02-03-2024 09:30-0400 Heart rate 80 /min Stevie Fanny DO Work Phone: [employer] 02-03-2024 09:30-0400 Respiratory rate 18 /min Stevie Fanny DO Work Phone: [employer] 02-03-2024 09:30-0400 SaO2% (BldA) [Mass fraction] 94 % Stevie Fanny DO Work Phone: [employer] 02-03-2024 09:30-0400 Systolic blood pressure 124 mm[Hg] Stevie Fanny DO Work Phone: [employer] 11-11-2023 14:36-0400 Body mass index (BMI) [Ratio] 34.46 kg/m2 Marie Devi MD Work Phone: [facility] [place] 11-11-2023 14:36-0400 Body temperature 98.49 [degF] Marie Devi MD Work Phone: [facility] [place] 11-11-2023 14:36-0400 Body weight 93.94 kg Marie Devi MD Work Phone: [facility] [place] 11-11-2023 14:36-0400 Diastolic blood pressure 77 mm[Hg] Marie Devi MD Work Phone: [facility] [place] 11-11-2023 14:36-0400 Heart rate 82 /min Marie Devi MD Work Phone: [facility] [place] 11-11-2023 14:36-0400 SaO2% (BldA) [Mass fraction] 93 % Marie Devi MD Work Phone: [facility] [place] 11-11-2023 14:36-0400 Systolic blood pressure 130 mm[Hg] Marie Devi MD Work Phone: [facility] [place] 11-04-2023 09:43-0400 Body height 162.6 cm Stevie Fanny DO Work Phone: [employer] 11-04-2023 09:43-0400 Body mass index (BMI) [Ratio] 34.67 kg/m2 Stevie Fanny DO Work Phone: [employer] 11-04-2023 09:43-0400 Body temperature 99 [degF] Stevie Fanny DO Work Phone: [employer] 11-04-2023 09:43-0400 Body weight 91.63 kg Stevie Fanny DO Work Phone: [facility] [employer] 11-04-2023 09:43-0400 Diastolic blood pressure 71 mm[Hg] Stevie Fanny DO Work Phone: [employer] 11-04-2023 09:43-0400 Heart rate 81 /min Stevie Fanny DO Work Phone: [facility] [employer] 11-04-2023 09:43-0400 SaO2% (BldA) [Mass fraction] 93 % Stevie Schumacherel DO Work Phone: [facility] [employer] 11-04-2023 09:43-0400 Systolic blood pressure 117 mm[Hg] Stevie Schumacherel DO Work Phone: [facility] [employer] 09-23-2023 10:12-0400 Body temperature 98.2 [degF] Chair 3 [facility] [employer] 09-23-2023 10:12-0400 Diastolic blood pressure 74 mm[Hg] Chair 3 [facility] [employer] 09-23-2023 10:12-0400 Heart rate 72 /min Chair 3 [facility] [employer] 09-23-2023 10:12-0400 Respiratory rate 20 /min Chair 3 [facility] [employer] 09-23-2023 10:12-0400 SaO2% (BldA) [Mass fraction] 95 % Chair 3 [facility] [employer] 09-23-2023 10:12-0400 Systolic blood pressure 125 mm[Hg] Chair 3 [facility] [employer] 09-23-2023 08:06-0400 Body mass index (BMI) [Ratio] 35.58 kg/m2 Chair 3 [facility] [employer] 09-23-2023 08:06-0400 Body weight 94.03 kg Chair 3 [facility] [employer] 09-18-2023 09:44-0400 Body height 162.6 cm Stevie Escobedo DO Work Phone: [facility] [employer] 09-18-2023 09:44-0400 Body mass index (BMI) [Ratio] 35.87 kg/m2 Stevie Schulteebel DO Work Phone: [facility] [employer] 09-18-2023 09:44-0400 Body weight 94.8 kg Stevie Schumacherel DO Work Phone: [facility] [employer] 09-12-2023 13:17-0400 Body height 162.6 cm Vicki Diego MD Work Phone: [facility] [employer] 09-12-2023 13:17-0400 Body mass index (BMI) [Ratio] 35.91 kg/m2 Vicki Diego MD Work Phone: [facility] [employer] 09-12-2023 13:17-0400 Body temperature 96.91 [degF] Vicki Diego MD Work Phone: [facility] [employer] 09-12-2023 13:17-0400 Body weight 94.89 kg Vicki Diego MD Work Phone: [facility] [employer] 09-12-2023 13:17-0400 Diastolic blood pressure 80 mm[Hg] Vicki Diego MD Work Phone: [facility] [employer] 09-12-2023 13:17-0400 Heart rate 94 /min Vicki Diego MD Work Phone: [facility] [employer] 09-12-2023 13:17-0400 Respiratory rate 16 /min Vicki Diego MD Work Phone: [facility] [employer] 09-12-2023 13:17-0400 SaO2% (BldA) [Mass fraction] 96 % Vicki Diego MD Work Phone: [facility] [employer] 09-12-2023 13:17-0400 Systolic blood pressure 138 mm[Hg] Vicki Diego MD Work Phone: [facility] [employer] 09-02-2023 11:28-0400 Body temperature 97.81 [degF] Chair 5 [facility] [employer] 09-02-2023 11:28-0400 Diastolic blood pressure 75 mm[Hg] Chair 5 [facility] [employer] 09-02-2023 11:28-0400 Heart rate 77 /min Chair 5 [facility] [employer] 09-02-2023 11:28-0400 Respiratory rate 14 /min Chair 5 [facility] [employer] 09-02-2023 11:28-0400 SaO2% (BldA) [Mass fraction] 94 % Chair 5 [facility] [employer] 09-02-2023 11:28-0400 Systolic blood pressure 124 mm[Hg] Chair 5 [facility] [employer] 09-02-2023 08:51-0400 Body height 165.1 cm Stevie Escobedo DO Work Phone: [facility] [employer] 09-02-2023 08:51-0400 Body mass index (BMI) [Ratio] 34.56 kg/m2 Stevie Fanny DO Work Phone: [facility] [employer] 09-02-2023 08:51-0400 Body temperature 97.81 [degF] Stevie Fanny DO Work Phone: [facility] [employer] 09-02-2023 08:51-0400 Body weight 94.21 kg Stevie Schulteebel DO Work Phone: [facility] [employer] 09-02-2023 08:51-0400 Diastolic blood pressure 71 mm[Hg] Stevie Fanny DO Work Phone: [facility] [employer] 09-02-2023 08:51-0400 Heart rate 89 /min Stevie Schumacherel DO Work Phone: [facility] [employer] 09-02-2023 08:51-0400 SaO2% (BldA) [Mass fraction] 91 % Stevie Schumacherel DO Work Phone: [facility] [employer] 09-02-2023 08:51-0400 Systolic blood pressure 125 mm[Hg] Stevie Schulteebel DO Work Phone: [facility] [employer] 09-02-2023 08:50-0400 Body mass index (BMI) [Ratio] 34.56 kg/m2 Chair 5 [facility] [employer] 09-02-2023 08:50-0400 Body weight 94.21 kg Chair 5 [facility] [employer] 08-12-2023 10:38-0500 Body temperature 98.29 [degF] Chair 1 [facility] [employer] 08-12-2023 10:38-0500 Diastolic blood pressure 87 mm[Hg] Chair 1 [facility] [employer] 08-12-2023 10:38-0500 Heart rate 73 /min Chair 1 [facility] [employer] 08-12-2023 10:38-0500 Respiratory rate 20 /min Chair 1 [facility] [employer] 08-12-2023 10:38-0500 SaO2% (BldA) [Mass fraction] 94 % Chair 1 [facility] [employer] 08-12-2023 10:38-0500 Systolic blood pressure 106 mm[Hg] Chair 1 [facility] 08-12-2023 08:09-0500 Body mass index (BMI) [Ratio] 34.21 kg/m2 Chair 1 [facility] 08-12-2023 08:09-0500 Body weight 93.26 kg Chair 1 [facility] 08-05-2023 11:11-0500 Body temperature 98.8 [degF] Chair 1 [facility] 08-05-2023 11:11-0500 Diastolic blood pressure 75 mm[Hg] Chair 1 [facility] 08-05-2023 11:11-0500 Heart rate 91 /min Chair 1 [facility] 08-05-2023 11:11-0500 SaO2% (BldA) [Mass fraction] 93 % Chair 1 [facility] 08-05-2023 11:11-0500 Systolic blood pressure 138 mm[Hg] Chair 1 [facility] 08-05-2023 09:00-0500 Body mass index (BMI) [Ratio] 33.73 kg/m2 Chair 1 [facility] 08-05-2023 09:00-0500 Body weight 91.94 kg Chair 1 [facility] 08-05-2023 09:00-0500 Respiratory rate 18 /min Chair 1 [facility] 07-30-2023 06:49-0500 Body height 165.1 cm Marie Devi MD Work Phone: [facility] [place] 07-30-2023 06:49-0500 Body mass index (BMI) [Ratio] 34.41 kg/m2 Marie Devi MD Work Phone: [facility] [place] 07-30-2023 06:49-0500 Body temperature 97.5 [degF] Marie Devi MD Work Phone: [facility] [place] 07-30-2023 06:49-0500 Body weight 93.8 kg Marie Devi MD Work Phone: [facility] [place] 07-30-2023 06:49-0500 Diastolic blood pressure 72 mm[Hg] Marie Devi MD Work Phone: [facility] [place] 07-30-2023 06:49-0500 Heart rate 86 /min Marie Devi MD Work Phone: [facility] [place] 07-30-2023 06:49-0500 SaO2% (BldA) [Mass fraction] 94 % Marie Devi MD Work Phone: [facility] [place] 07-30-2023 06:49-0500 Systolic blood pressure 108 mm[Hg] Marie Devi MD Work Phone: [facility] [place] 07-15-2023 12:37-0500 Body temperature 97.3 [degF] Chair 5 [facility] [employer] 07-15-2023 12:37-0500 Diastolic blood pressure 81 mm[Hg] Chair 5 [facility] [employer] 07-15-2023 12:37-0500 Heart rate 77 /min Chair 5 [facility] [employer] 07-15-2023 12:37-0500 Respiratory rate 16 /min Chair 5 [facility] [employer] 07-15-2023 12:37-0500 SaO2% (BldA) [Mass fraction] 92 % Chair 5 [facility] [employer] 07-15-2023 12:37-0500 Systolic blood pressure 140 mm[Hg] Chair 5 [facility] [employer] 07-15-2023 10:27-0500 Body mass index (BMI) [Ratio] 33.95 kg/m2 Chair 5 [facility] [employer] 07-15-2023 10:27-0500 Body weight 92.53 kg Chair 5 [facility] [employer] 07-15-2023 10:09-0500 Body height 165.1 cm Stevie Fanny DO Work Phone: [facility] [employer] 07-15-2023 10:09-0500 Body mass index (BMI) [Ratio] 33.95 kg/m2 Stevie Fanny DO Work Phone: [facility] [employer] 07-15-2023 10:09-0500 Body temperature 97.59 [degF] Stevie Fanny DO Work Phone: [employer] 07-15-2023 10:09-0500 Body weight 92.53 kg Stevie Fanny DO Work Phone: [facility] [employer] 07-15-2023 10:09-0500 Diastolic blood pressure 78 mm[Hg] Stevie Fanny DO Work Phone: [facility] [employer] 07-15-2023 10:09-0500 Heart rate 95 /min Stevie Fanny DO Work Phone: [facility] [employer] 07-15-2023 10:09-0500 SaO2% (BldA) [Mass fraction] 93 % Stevie Fanny DO Work Phone: [facility] [employer] 07-15-2023 10:09-0500 Systolic blood pressure 135 mm[Hg] Stevie Fanny DO Work Phone: [facility] [employer] 07-03-2023 10:27-0500 Body height 165.1 cm Vicki Diego MD Work Phone: [facility] [employer] 07-03-2023 10:27-0500 Body mass index (BMI) [Ratio] 33.22 kg/m2 Vicki Diego MD Work Phone: [facility] [employer] 07-03-2023 10:27-0500 Body temperature 97.7 [degF] Vicki Diego MD Work Phone: [facility] [employer] 07-03-2023 10:27-0500 Body weight 90.54 kg Vicki Diego MD Work Phone: [facility] [employer] 07-03-2023 10:27-0500 Diastolic blood pressure 87 mm[Hg] Vicki Diego MD Work Phone: [facility] [employer] 07-03-2023 10:27-0500 Heart rate 84 /min Vicki Diego MD Work Phone: [facility] [employer] 07-03-2023 10:27-0500 Respiratory rate 20 /min Vicki Diego MD Work Phone: [facility] [employer] 07-03-2023 10:27-0500 SaO2% (BldA) [Mass fraction] 97 % Vicki Diego MD Work Phone: [facility] [employer] 07-03-2023 10:27-0500 Systolic blood pressure 135 mm[Hg] Vicki Diego MD Work Phone: [facility] [employer] 06-26-2023 14:47-0500 Body mass index (BMI) [Ratio] 33.3 kg/m2 Marie Devi MD Work Phone: [facility] [place] 06-26-2023 14:47-0500 Body temperature 99 [degF] Marie Devi MD Work Phone: [facility] [place] 06-26-2023 14:47-0500 Body weight 90.77 kg Marie Devi MD Work Phone: [facility] [place] 06-26-2023 14:47-0500 Diastolic blood pressure 72 mm[Hg] Marie Devi MD Work Phone: [facility] [place] 06-26-2023 14:47-0500 Heart rate 85 /min Marie Devi MD Work Phone: [facility] [place] 06-26-2023 14:47-0500 Respiratory rate 16 /min Marie Devi MD Work Phone: [facility] [place] 06-26-2023 14:47-0500 SaO2% (BldA) [Mass fraction] 92 % Marie Devi MD Work Phone: [facility] [place] 06-26-2023 14:47-0500 Systolic blood pressure 111 mm[Hg] Marie Devi MD Work Phone: [facility] [place] 06-24-2023 12:20-0500 Body temperature 96.4 [degF] Chair 1 [facility] [employer] 06-24-2023 12:20-0500 Diastolic blood pressure 75 mm[Hg] Chair 1 [employer] 06-24-2023 12:20-0500 Heart rate 79 /min Chair 1 [facility] [employer] 06-24-2023 12:20-0500 Respiratory rate 14 /min Chair 1 [employer] 06-24-2023 12:20-0500 SaO2% (BldA) [Mass fraction] 93 % Chair 1 [facility] [employer] 06-24-2023 12:20-0500 Systolic blood pressure 129 mm[Hg] Chair 1 [facility] [employer] 06-24-2023 08:03-0500 Body height 165.1 cm Stevie Escobedo DO Work Phone: [facility] [employer] 06-24-2023 08:03-0500 Body mass index (BMI) [Ratio] 33.45 kg/m2 Stevie Fanny DO Work Phone: [facility] [employer] 06-24-2023 08:03-0500 Body temperature 98.49 [degF] [facility] DO [facility] 06-24-2023 08:03-0500 Body weight 91.17 kg Stevie Fanny DO Work Phone: [facility] 06-24-2023 08:03-0500 Diastolic blood pressure 76 mm[Hg] Stevie Fanny DO Work Phone: [facility] [employer] 06-24-2023 08:03-0500 Heart rate 93 /min Stevie Fanny DO Work Phone: [facility] 06-24-2023 08:03-0500 SaO2% (BldA) [Mass fraction] 93 % Stevie Fanny DO Work Phone: [facility] 06-24-2023 08:03-0500 Systolic blood pressure 121 mm[Hg] Stevie Fanny DO Work Phone: [facility] [employer] 06-24-2023 08:01-0500 Body mass index (BMI) [Ratio] 33.45 kg/m2 Chair [address] [facility] 06-24-2023 08:01-0500 Body weight 91.17 kg Chair 1 [facility] [employer] 06-13-2023 10:12-0500 Body temperature 97.9 [degF] Chair 3 [facility] [employer] 06-13-2023 10:12-0500 Diastolic blood pressure 78 mm[Hg] Chair 3 [facility] [employer] 06-13-2023 10:12-0500 Systolic blood pressure 110 mm[Hg] Chair 3 [facility] [employer] 06-13-2023 08:40-0500 Heart rate 93 /min Chair 3 [facility] [employer] 06-13-2023 08:40-0500 Respiratory rate 16 /min Chair 3 [facility] [employer] 06-13-2023 08:40-0500 SaO2% (BldA) [Mass fraction] 92 % Chair 3 [facility] 06-03-2023 14:43-0500 Body temperature 97 [degF] Chair 5 [facility] 06-03-2023 14:43-0500 Diastolic blood pressure 71 mm[Hg] Chair 5 [facility] 06-03-2023 14:43-0500 Heart rate 78 /min Chair 5 [facility] 06-03-2023 14:43-0500 Respiratory rate 18 /min Chair 5 [facility] 06-03-2023 14:43-0500 SaO2% (BldA) [Mass fraction] 93 % Chair 5 [facility] 06-03-2023 14:43-0500 Systolic blood pressure 113 mm[Hg] Chair 5 [facility] 06-03-2023 10:11-0500 Body height 165.1 cm Stevie Fanny DO Work Phone: [facility] [employer] 06-03-2023 10:11-0500 Body temperature 97.5 [degF] Stevie Fanny DO Work Phone: [facility] [employer] 06-03-2023 10:11-0500 Diastolic blood pressure 58 mm[Hg] Stevie Fanny DO Work Phone: [facility] [employer] 06-03-2023 10:11-0500 Heart rate 101 /min Stevie Fanny DO Work Phone: [facility] [employer] 06-03-2023 10:11-0500 SaO2% (BldA) [Mass fraction] 95 % Stevie Fanny DO Work Phone: [facility] [employer] 06-03-2023 10:11-0500 Systolic blood pressure 86 mm[Hg] Stevie Fanny DO Work Phone: [facility] [employer] 05-27-2023 15:26-0500 Body temperature 99.7 [degF] Chair 3 [facility] 05-27-2023 15:26-0500 Diastolic blood pressure 56 mm[Hg] Chair 3 [facility] 05-27-2023 15:26-0500 Heart rate 86 /min Chair 3 [facility] 05-27-2023 15:26-0500 Respiratory rate 18 /min Chair 3 [facility] 05-27-2023 15:26-0500 SaO2% (BldA) [Mass fraction] 91 % Chair 3 [facility] 05-27-2023 15:26-0500 Systolic blood pressure 107 mm[Hg] Chair 3 [facility] 05-27-2023 10:39-0500 Body height 165.1 cm Chair 3 [facility] 05-27-2023 10:39-0500 Body mass index (BMI) [Ratio] 33.36 kg/m2 Chair 3 [facility] 05-27-2023 10:39-0500 Body weight 90.95 kg Chair 3 [facility] 05-23-2023 10:59-0500 Diastolic blood pressure 70 mm[Hg] Chair 4 [facility] 05-23-2023 10:59-0500 Heart rate 87 /min Chair 4 [facility] 05-23-2023 10:59-0500 SaO2% (BldA) [Mass fraction] 91 % Chair 4 [facility] 05-23-2023 10:59-0500 Systolic blood pressure 125 mm[Hg] Chair 4 [facility] 05-23-2023 08:45-0500 Body mass index (BMI) [Ratio] 33.9 kg/m2 Chair 4 [facility] 05-23-2023 08:45-0500 Body temperature 97.7 [degF] Chair 4 [facility] 05-23-2023 08:45-0500 Body weight 92.4 kg Chair 4 [facility] 05-23-2023 08:45-0500 Respiratory rate 20 /min Chair 4 [facility] 05-20-2023 13:16-0500 Body temperature 98.1 [degF] Bed 1 [facility] 05-20-2023 13:16-0500 Diastolic blood pressure 70 mm[Hg] Bed 1 [facility] 05-20-2023 13:16-0500 Heart rate 75 /min Bed 1 [facility] 05-20-2023 13:16-0500 SaO2% (BldA) [Mass fraction] 94 % Bed 1 [facility] 05-20-2023 13:16-0500 Systolic blood pressure 134 mm[Hg] Bed 1 [facility] 05-20-2023 08:48-0500 Body height 165.1 cm Stevie Fanny DO Work Phone: [facility] [employer] 05-20-2023 08:48-0500 Body mass index (BMI) [Ratio] 33.41 kg/m2 Stevie Fanny DO Work Phone: [facility] [employer] 05-20-2023 08:48-0500 Body temperature 98.01 [degF] Stevie Fanny DO Work Phone: [facility] [employer] 05-20-2023 08:48-0500 Body weight 91.08 kg Stevie Fanny DO Work Phone: [facility] [employer] 05-20-2023 08:48-0500 Diastolic blood pressure 68 mm[Hg] Stevie Fanny DO Work Phone: [facility] [employer] 05-20-2023 08:48-0500 Heart rate 85 /min Stevie Fanny DO Work Phone: [facility] [employer] 05-20-2023 08:48-0500 SaO2% (BldA) [Mass fraction] 95 % Stevie Schumacherel DO Work Phone: [facility] [employer] 05-20-2023 08:48-0500 Systolic blood pressure 106 mm[Hg] Stevie Schulteebel DO Work Phone: [facility] [employer] 05-20-2023 08:43-0500 Body mass index (BMI) [Ratio] 33.36 kg/m2 Bed 1 [facility] [employer] 05-20-2023 08:43-0500 Body weight 90.95 kg Bed 1 [facility] [employer] 05-20-2023 08:43-0500 Respiratory rate 16 /min Bed 1 [facility] [employer] 05-13-2023 12:58-0500 Body temperature 98.71 [degF] Chair 5 [facility] [employer] 05-13-2023 12:58-0500 Diastolic blood pressure 71 mm[Hg] Chair 5 [facility] [employer] 05-13-2023 12:58-0500 Heart rate 78 /min Chair 5 [facility] [employer] 05-13-2023 12:58-0500 Respiratory rate 16 /min Chair 5 [facility] [employer] 11-21-2023 12:58-0500 SaO2% (BldA) [Mass fraction] 94 % Chair 5 [facility] 05-13-2023 12:58-0500 Systolic blood pressure 120 mm[Hg] Chair 5 [facility] 05-13-2023 08:40-0500 Body mass index (BMI) [Ratio] 33.78 kg/m2 Chair 5 [facility] 05-13-2023 08:40-0500 Body weight 92.08 kg Chair 5 [facility] 05-06-2023 13:06-0500 Body temperature 98.2 [degF] Chair 5 [facility] 05-06-2023 13:06-0500 Diastolic blood pressure 74 mm[Hg] Chair 5 [facility] 05-06-2023 13:06-0500 Heart rate 70 /min Chair 5 [facility] 05-06-2023 13:06-0500 Respiratory rate 12 /min Chair 5 [facility] 05-06-2023 13:06-0500 SaO2% (BldA) [Mass fraction] 92 % Chair 5 [facility] 05-06-2023 13:06-0500 Systolic blood pressure 136 mm[Hg] Chair 5 [facility] 05-06-2023 08:44-0500 Body height 165.1 cm Stevie Fanny DO Work Phone: [facility] 05-06-2023 08:44-0500 Body mass index (BMI) [Ratio] 34.25 kg/m2 Stevie Fanny DO Work Phone: [facility] [employer] 05-06-2023 08:44-0500 Body temperature 97 [degF] Stevie Fanny DO Work Phone: [facility] [employer] 05-06-2023 08:44-0500 Body weight 93.35 kg Stevie Fanny DO Work Phone: [facility] [employer] 05-06-2023 08:44-0500 Diastolic blood pressure 71 mm[Hg] Stevie Fanny DO Work Phone: [facility] [employer] 05-06-2023 08:44-0500 Heart rate 77 /min Stevie Fanny DO Work Phone: [facility] 05-06-2023 08:44-0500 SaO2% (BldA) [Mass fraction] 96 % Stevie Escobedo DO Work Phone: [facility] 05-06-2023 08:44-0500 Systolic blood pressure 113 mm[Hg] Stevie Escobedo DO Work Phone: [facility] 05-06-2023 08:43-0500 Body mass index (BMI) [Ratio] 34.25 kg/m2 Chair 5 [facility] 05-06-2023 08:43-0500 Body weight 93.35 kg Chair 5 [facility] 04-29-2023 13:56-0500 Body temperature 97.5 [degF] Chair 4 [facility] 04-29-2023 13:56-0500 Diastolic blood pressure 84 mm[Hg] Chair 4 [facility] 04-29-2023 13:56-0500 Heart rate 84 /min Chair 4 [facility] 04-29-2023 13:56-0500 Respiratory rate 20 /min Chair 4 [facility] 04-29-2023 13:56-0500 SaO2% (BldA) [Mass fraction] 94 % Chair 4 [facility] 04-29-2023 13:56-0500 Systolic blood pressure 132 mm[Hg] Chair 4 [facility] 04-29-2023 10:04-0500 Body mass index (BMI) [Ratio] 33.9 kg/m2 Chair 4 [facility] 04-29-2023 10:04-0500 Body weight 92.4 kg Chair 4 [facility] 04-22-2023 12:25-0400 Body temperature 97.3 [degF] Chair 6 [facility] 04-22-2023 12:25-0400 Diastolic blood pressure 76 mm[Hg] Chair 6 [facility] 04-22-2023 12:25-0400 Heart rate 75 /min Chair 6 [facility] 04-22-2023 12:25-0400 Respiratory rate 14 /min Chair 6 [facility] 04-22-2023 12:25-0400 SaO2% (BldA) [Mass fraction] 98 % Chair 6 [facility] [employer] 04-22-2023 12:25-0400 Systolic blood pressure 130 mm[Hg] Chair 6 [facility] [employer] 04-22-2023 08:12-0400 Body height 165.1 cm Stevie Fanny DO Work Phone: [facility] [employer] 04-22-2023 08:12-0400 Body mass index (BMI) [Ratio] 34.18 kg/m2 Stevie Fanny DO Work Phone: [facility] [employer] 04-22-2023 08:12-0400 Body temperature 98.01 [degF] Stevie Fanny DO Work Phone: [facility] [employer] 04-22-2023 08:12-0400 Body weight 93.17 kg Stevie Fanny DO Work Phone: [facility] [employer] 04-22-2023 08:12-0400 Diastolic blood pressure 83 mm[Hg] Stevie Fanny DO Work Phone: [facility] [employer] 04-22-2023 08:12-0400 Heart rate 79 /min Stevie Fanny DO Work Phone: [facility] [employer] 04-22-2023 08:12-0400 SaO2% (BldA) [Mass fraction] 93 % Stevie Fanny DO Work Phone: [facility] [employer] 04-22-2023 08:12-0400 Systolic blood pressure 139 mm[Hg] Stevie Fanny DO Work Phone: [facility] [employer] 04-08-2023 13:50-0400 Body temperature 97.5 [degF] Chair 6 [facility] [employer] 04-08-2023 13:50-0400 Diastolic blood pressure 71 mm[Hg] Chair 6 [facility] [employer] 04-08-2023 13:50-0400 Heart rate 72 /min Chair 6 [facility] [employer] 04-08-2023 13:50-0400 Respiratory rate 18 /min Chair 6 [facility] [employer] 04-08-2023 13:50-0400 Systolic blood pressure 128 mm[Hg] Chair 6 [facility] [employer] 04-08-2023 09:59-0400 Body height 165.1 cm Stevie Fanny DO Work Phone: [facility] [employer] 04-08-2023 09:59-0400 Body mass index (BMI) [Ratio] 33.86 kg/m2 Steviecharito Schumacherel DO Work Phone: [facility] [employer] 04-08-2023 09:59-0400 Body temperature 98.4 [degF] Stevie Schumacherel DO Work Phone: [facility] [employer] 04-08-2023 09:59-0400 Body weight 92.31 kg Stevie Schumacherel DO Work Phone: [facility] [employer] 04-08-2023 09:59-0400 Diastolic blood pressure 64 mm[Hg] Stevie Fanny DO Work Phone: [facility] [employer] 04-08-2023 09:59-0400 Heart rate 74 /min Stevie Schumacherel DO Work Phone: [facility] [employer] 04-08-2023 09:59-0400 SaO2% (BldA) [Mass fraction] 98 % Stevie Escobedo DO Work Phone: [facility] [employer] 04-08-2023 09:59-0400 Systolic blood pressure 127 mm[Hg] Stevie Schumacherel DO Work Phone: [facility] [employer] 04-08-2023 09:56-0400 Body mass index (BMI) [Ratio] 33.86 kg/m2 Chair 6 [facility] [employer] 04-08-2023 09:56-0400 Body weight 92.31 kg Chair 6 [facility] [employer] 04-08-2023 09:56-0400 SaO2% (BldA) [Mass fraction] 98 % Chair 6 [facility] 04-01-2023 13:44-0400 Body temperature 98.01 [degF] Chair 3 [facility] [employer] 04-01-2023 13:44-0400 Diastolic blood pressure 81 mm[Hg] Chair 3 [facility] 04-01-2023 13:44-0400 Heart rate 70 /min Chair 3 [facility] [employer] 04-01-2023 13:44-0400 Respiratory rate 16 /min Chair 3 [facility] [employer] 04-01-2023 13:44-0400 SaO2% (BldA) [Mass fraction] 91 % Chair 3 [facility] [employer] 04-01-2023 13:44-0400 Systolic blood pressure 130 mm[Hg] Chair 3 [facility] [employer] 04-01-2023 08:02-0400 Body mass index (BMI) [Ratio] 34.11 kg/m2 Chair 3 [facility] [employer] 04-01-2023 08:02-0400 Body weight 92.99 kg Chair 3 [facility] [employer] 03-26-2023 14:30-0400 Body height 165.1 cm Stevie Fanny DO Work Phone: [facility] [employer] 03-26-2023 14:30-0400 Body mass index (BMI) [Ratio] 33.78 kg/m2 Stevie Fanny DO Work Phone: [facility] [employer] 03-26-2023 14:30-0400 Body weight 92.08 kg Stevie Fanny DO Work Phone: [facility] [employer] 03-18-2023 13:35-0400 Body height 165.1 cm Stevie Fanny DO Work Phone: [facility] [employer] 03-18-2023 13:35-0400 Body mass index (BMI) [Ratio] 33.86 kg/m2 Stevie Fanny DO Work Phone: [facility] [employer] 03-18-2023 13:35-0400 Body temperature 98.1 [degF] Stevie Fanny DO Work Phone: [facility] [employer] 03-18-2023 13:35-0400 Body weight 92.31 kg Stevie Fanny DO Work Phone: [facility] [employer] 03-18-2023 13:35-0400 Diastolic blood pressure 83 mm[Hg] Stevie Fanny DO Work Phone: [facility] [employer] 03-18-2023 13:35-0400 Heart rate 77 /min Stevie Fanny DO Work Phone: [facility] [employer] 03-18-2023 13:35-0400 SaO2% (BldA) [Mass fraction] 97 % Stevei Fanny DO Work Phone: [facility] [employer] 03-18-2023 13:35-0400 Systolic blood pressure 140 mm[Hg] Stevie Escobedo DO Work Phone: [facility] [employer] 03-06-2023 13:21-0400 Body height 165.1 cm Vicki Diego MD Work Phone: [facility] [employer] 03-06-2023 13:21-0400 Body mass index (BMI) [Ratio] 33.66 kg/m2 Vicki Diego MD Work Phone: [facility] [employer] 03-06-2023 13:21-0400 Body temperature 97.11 [degF] Vicki Diego MD Work Phone: [facility] [employer] 03-06-2023 13:21-0400 Body weight 91.76 kg Vicki Diego MD Work Phone: [facility] [employer] 03-06-2023 13:21-0400 Diastolic blood pressure 90 mm[Hg] Vicki Diego MD Work Phone: [facility] [employer] 03-06-2023 13:21-0400 Heart rate 77 /min Vicki Diego MD Work Phone: [facility] [employer] 03-06-2023 13:21-0400 Respiratory rate 20 /min Vicki Diego MD Work Phone: [facility] [employer] 03-06-2023 13:21-0400 SaO2% (BldA) [Mass fraction] 97 % Vicki Diego MD Work Phone: [facility] [employer] 03-06-2023 13:21-0400 Systolic blood pressure 140 mm[Hg] Vicki Diego MD Work Phone: [facility] [employer] 02-12-2023 15:27-0400 Body mass index (BMI) [Ratio] 34.11 kg/m2 Marie Devi MD Work Phone: [facility] 02-12-2023 15:27-0400 Body temperature 97.39 [degF] Marie Devi MD Work Phone: [facility] 02-12-2023 15:27-0400 Body weight 92.99 kg Marie Devi MD Work Phone: [facility] 02-12-2023 15:27-0400 Diastolic blood pressure 75 mm[Hg] Marie Devi MD Work Phone: [facility] 02-12-2023 15:27-0400 Heart rate 71 /min Marie Devi MD Work Phone: [facility] 02-12-2023 15:27-0400 Respiratory rate 16 /min Marie Devi MD Work Phone: [facility] 02-12-2023 15:27-0400 Systolic blood pressure 122 mm[Hg] Marie Devi MD Work Phone: [facility] 02-05-2023 07:51-0400 Body height 166.4 cm Pacc 2 Work Phone: [facility] 02-05-2023 07:51-0400 Body temperature 97.11 [degF] Pacc 2 Work Phone: [facility] 02-05-2023 07:51-0400 Body weight 93.44 kg Pacc 2 Work Phone: [facility] 02-05-2023 07:51-0400 Diastolic blood pressure 69 mm[Hg] Pacc 2 Work Phone: [facility] 02-05-2023 07:51-0400 Heart rate 76 /min Pacc 2 Work Phone: [facility] 02-05-2023 07:51-0400 Respiratory rate 16 /min Pacc 2 Work Phone: [facility] 02-05-2023 07:51-0400 SaO2% (BldA) [Mass fraction] 97 % Pacc 2 Work Phone: [facility] 02-05-2023 07:51-0400 Systolic blood pressure 126 mm[Hg] Pacc 2 Work Phone: [facility] 02-03-2023 14:21-0400 Body height 165.1 cm Torrie Choi MD Work Phone: [facility] 02-03-2023 14:21-0400 Body weight 92.08 kg Torrie Choi MD Work Phone: [facility] 02-03-2023 14:21-0400 Diastolic blood pressure 83 mm[Hg] Torrie Choi MD Work Phone: [facility] 02-03-2023 14:21-0400 Heart rate 74 /min Torrie Choi MD Work Phone: [facility] 02-03-2023 14:21-0400 Systolic blood pressure 128 mm[Hg] Torrie Choi MD Work Phone: [facility] 01-23-2023 06:35-0400 Body mass index (BMI) [Ratio] 34.38 kg/m2 Marie Devi MD Work Phone: [facility] 01-23-2023 06:35-0400 Body temperature 96.91 [degF] Marie Devi MD Work Phone: [facility] 01-23-2023 06:35-0400 Body weight 93.71 kg Marie Devi MD Work Phone: [facility] 01-23-2023 06:35-0400 Diastolic blood pressure 73 mm[Hg] Marie Devi MD Work Phone: [facility] 01-23-2023 06:35-0400 Heart rate 68 /min Marie Devi MD Work Phone: [facility] 01-23-2023 06:35-0400 Respiratory rate 16 /min Marie Devi MD Work Phone: [facility] 01-23-2023 06:35-0400 SaO2% (BldA) [Mass fraction] 97 % Marie Devi MD Work Phone: [facility] 01-23-2023 06:35-0400 Systolic blood pressure 115 mm[Hg] Marie Devi MD Work Phone: [facility] 10-30-2022 10:06-0400 Body mass index (BMI) [Ratio] 32.78 kg/m2 Dara Mesko DO Work Phone: [facility] 10-30-2022 10:06-0400 Body temperature 97.9 [degF] Dara Mesko DO Work Phone: [facility] 10-30-2022 10:06-0400 Body weight 89.36 kg Dara Mesko DO Work Phone: [facility] 10-30-2022 10:06-0400 Diastolic blood pressure 66 mm[Hg] Dara Mesko DO Work Phone: [facility] 10-30-2022 10:06-0400 Heart rate 73 /min Dara Mesko DO Work Phone: [facility] 10-30-2022 10:06-0400 Respiratory rate 14 /min Dara Mesko DO Work Phone: [facility] 10-30-2022 10:06-0400 SaO2% (BldA) [Mass fraction] 97 % Dara Daianako DO Work Phone: [facility] 10-30-2022 10:06-0400 Systolic blood pressure 100 mm[Hg] Dara Mesko DO Work Phone: [facility] 10-24-2022 14:36-0400 Body mass index (BMI) [Ratio] 32.92 kg/m2 Dara Mesko DO Work Phone: [facility] 10-24-2022 14:36-0400 Body temperature 98.01 [degF] Dara Mesko DO Work Phone: [facility] 10-24-2022 14:36-0400 Body weight 89.72 kg Dara Daianako DO Work Phone: [facility] 10-24-2022 14:36-0400 Diastolic blood pressure 72 mm[Hg] Dara Ahmadiko DO Work Phone: [facility] 10-24-2022 14:36-0400 Heart rate 85 /min Dara Mesko DO Work Phone: [facility] 10-24-2022 14:36-0400 Respiratory rate 16 /min Dara Mesko DO Work Phone: [facility] 10-24-2022 14:36-0400 SaO2% (BldA) [Mass fraction] 98 % Dara Ahmadiko DO Work Phone: [facility] 10-24-2022 14:36-0400 Systolic blood pressure 126 mm[Hg] Dara Ahmadiko DO Work Phone: [facility] 07-17-2022 06:57-0500 Body height 165.1 cm [facility] Work Phone: 07-17-2022 06:57-0500 [...] fraction] 96 % Marie Devi Work Phone: [facility] Work Phone: 01-10-2022 06:33-0400 Systolic [...] 01-06-2020 08:40-0400 BP Systolic 110 mm[Hg] Marie Dvei [facility] Work Phone: Comment on above: Location: RUE; Position: Sitting 01-06-2020 08:40-0400 Pulse (Heart Rate) 72 /min Marie Devi [facility] Work Phone: 01-06-2020 08:40-0400 Pulse Oximetry 95 % Marie Devi [facility] Work Phone: 01-06-2020 08:40-0400 Respiratory Rate 12 /min Marie Devi [facility] Work Phone: 01-06-2020 08:37-0400 BMI (Body Mass Index) 30.42 kg/m2 Marie Devi [facility] Work Phone: 01-06-2020 08:37-0400 Body weight 81.65 kg Marie Devi [facility] Work Phone: 01-06-2020 08:37-0400 BSA (Body Surface Area) 1.88 m2 Marie Devi [facility] Work Phone: Encounters Encounter Date Encounter Type Care Provider Facility Start: 12-03-2024 End: 12-10-2024 Evaluation and management of inpatient SHAW KINSEY Facility:[facility] Start: 09-17-2024 End: 09-17-2024 Patient encounter procedure Leonardo [email or web address] [facility] DO Work Phone: [facility] Comment on above: Medicare annual well ness visit, subsequent (Primary Dx); Depression with anxiety; Elevated TSH; Parkinson's disease without dyskinesia or fluctuating manifestations; Vitamin D deficiency; Do not resuscitate Start: 09-17-2024 End: 09-17-[address] [facility] Start: 08-10-2024 End: 08-10-2024 Office outpatient visit 15 minutes Stevie E Fanny DO Work Phone: [facility] Comment on above: Malignant neoplasm o f upper-outer quadrant of left breast in female, estrogen receptor positive (HCC) (Primary Dx) Start: 08-10-2024 End: 08-10-2024 ambulatory [facility] Start: 07-31-2024 End: 08-03-2024 Refill Stevie E Fanny DO Work Phone: [facility] Comment on above: Malignant neoplasm o f upper-outer quadrant of left breast in female, estrogen receptor positive (HCC) Start: 03-25-2024 ambulatory MARIE DEVI Facility: [facility] Start: 03-25-2024 End: 03-25-2024 Subsequent hospital visit by physician Screen/Diagnostic Mammo [facility] Work Phone: Mammography Comment on above: Visit for screening mammogram [Z12.31] Start: 03-16-2024 End: 03-16-2024 Office outpatient visit 15 minutes Stevie E Fanny DO Work Phone: [facility] [place] Comment on above: Malignant neoplasm o f upper-outer quadrant of left breast in female, estrogen receptor positive (HCC) (Primary Dx) Start: 03-16-2024 End: 03-16-2024 ambulatory [facility] Start: 02-19-2024 End: 02-19-2024 ambulatory TORRIE CHOI Facility:[facility] Start: 02-19-2024 End: 02-19-2024 Patient encounter procedure Torrie Choi MD Work Phone: General Surgery Comment on above: Malignant neoplasm o f upper-outer quadrant of left breast in female, estrogen receptor positive (HCC) (Primary Dx) Start: 02-18-2024 End: 02-18-2024 Office outpatient visit 25 minutes Maire Devi MD Work Phone: [facility] Comment on above: Parkinsonism, unspec ified Parkinsonism type (Multi) (Primary Dx); Malignant neoplasm of right female breast, unspecified estrogen receptor status, unspecified site of breast (Multi); Depression with anxiety; Elevated TSH; Obesity (BMI 30.0-34.9); Other specified depressive episodes Start: 02-18-2024 End: 02-18-2024 ambulatory [facility] Start: 02-03-2024 End: 02-03-2024 Refill Stevie E Fanny DO Work Phone: [facility] Comment on above: Malignant neoplasm o f upper-outer quadrant of left breast in female, estrogen receptor positive (HCC) Patient Question Start: 02-03-2024 End: 02-03-2024 Office outpatient visit 25 minutes Stevie E Fanny DO Work Phone: [facility] Comment on above: Malignant neoplasm o f upper-outer quadrant of left breast in female, estrogen receptor positive (HCC) (Primary Dx) Start: 11-11-2023 End: 11-11-2023 Office outpatient visit 25 minutes Marie Devi MD Work Phone: [facility] Comment on above: 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) (Primary Dx); Parkinsonism, unspecified Parkinsonism type (Multi); Depression with anxiety; Pneumonia due to COVID-19 virus; Malignant neoplasm of right female breast, unspecified estrogen receptor status, unspecified site of breast (Multi) Start: 11-11-2023 End: 11-11-2023 ambulatory MARIE [facility] Start: 11-04-2023 End: 11-04-2023 Office outpatient visit 25 minutes Stevie E Fanny DO Work Phone: [facility] Comment on above: Malignant neoplasm o f upper-outer quadrant of left breast in female, estrogen receptor positive (HCC) (Primary Dx) Start: 11-04-2023 End: 11-04-2023 ambulatory Stevie E Fanny DO Work Phone: [facility] Comment on above: Arrived Start: 10-30-2023 Orders Only Stevie E Goebe l DO Work Phone: [facility] Comment on above: Malignant neoplasm o f upper-outer quadrant of left breast in female, estrogen receptor positive (HCC) (Primary Dx) Start: 10-29-2023 End: 11-27-2023 ambulatory MARIE [facility] Start: 10-14-2023 End: 10-28-2023 ambulatory ELO HOWARDANG Facility:[facility] Start: 10-14-2023 End: 10-28-2023 Subsequent hospital visit by physician Darrick Santos DO Work Phone: [facility] Start: 10-06-2023 Telephone encounter Lisa zarate RD [facility] Comment on above: Nutrition Counseling Start: 09-30-2023 Orders Only Stevie E Goebe l DO Work Phone: [facility] Comment on above: Malignant neoplasm o f upper-outer quadrant of left breast in female, estrogen receptor positive (HCC) (Primary Dx) Start: 09-23-2023 End: 09-23-2023 ambulatory Stevie E Fanny DO Work Phone: [facility] Comment on above: Malignant neoplasm o f upper-outer quadrant of left breast in female, estrogen receptor positive (HCC) Start: 09-18-2023 End: 09-18-2023 Subsequent hospital visit by physician Stevie Escobedo DO Work Phone: [facility] Non-Invasive Cardiology Comment on above: Admission for therap eutic drug monitoring; Encounter for monitoring cardiotoxic drug therapy Start: 09-18-2023 End: 09[facility] Start: 09-12-2023 End: 09-12-2023 Subsequent hospital visit by physician Vicki Diego MD Work Phone: [facility] Comment on above: Malignant neoplasm o f upper-outer quadrant of left breast in female, estrogen receptor positive (HCC) (HCC) (Primary Dx) Start: 09-12-2023 End: 09-12-2023 [facility] Start: 09-05-2023 End: 09-05-2023 Orders Only Stevie Sam SchulteFanny DO Work Phone: [facility] Comment on above: Malignant neoplasm o f upper-outer quadrant of left breast in female, estrogen receptor positive (HCC) (HCC) (Primary Dx) Malignant neoplasm o f upper-outer quadrant of left breast in female, estrogen receptor positive (HCC) (HCC); Asymptomatic menopausal state; Encounter for monitoring anastrozole therapy Start: 09-02-2023 End: 09-02-2023 Office outpatient visit 25 minutes Stevie E Fanny DO Work Phone: [facility] Comment on above: Malignant neoplasm o [...] (HCC) (HCC) Start: 08-15-2023 Orders Only Stevie alvraado DO Work Phone: [facility] Comment on [...] RAD ONC Start: 07-31-2023 End: 07-31-2023 ambulatory [facility] Start: 07-31-2023 End: 07-31-2023 Subsequent hospital visit by physician Jenny Serrato Ultras[facility] Comment on above: Thyroid nodule Nontoxic single thyr oid nodule Start: 07-30-2023 End: 07-30-2023 Subsequent hospital visit by physician Vicki Diego MD Work Phone: [facility] Start: 07-30-2023 End: 07-31-2023 ambulatory MARIE DEVI [facility] Start: 07-30-2023 End: 07-30-2023 Patient encounter procedure [...] by physician Vicki Diego MD Work Phone: [facility] Comment on above: Arrived Start: 07-03-2023 End: 07-03-2023 Subsequent hospital visit by physician Vicki Diego MD Work Phone: [facility] Comment on above: Malignant neoplasm o f upper-outer quadrant of left female breast, unspecified estrogen receptor status (HCC) Start: 07-03-2023 End: 07-03-2023 Office outpatient visit 25 minutes Vicki Diego MD Work Phone: [facility] Comment on above: Malignant neoplasm o f upper-outer quadrant of left breast in female, estrogen receptor positive (HCC) (Primary Dx) Start: 07-03-2023 End: 07-03-2023 Subsequent hospital visit by physician Billing Only Appointments Radiation Oncology [facility] Comment on above: Arrived Start: 07-01-2023 Orders Only Stevie alvardao DO Work Phone: [facility] Comment on above: Malignant neoplasm o f upper-outer quadrant of left breast in female, estrogen receptor positive (HCC) (Primary Dx) Start: 06-26-2023 End: 06-26-2023 Office outpatient visit 40 minutes Marie Devi MD Work Phone: [facility] Comment on above: Parkinsonism, unspec ified Parkinsonism type (Primary Dx); Toxic effect of chemotherapy; Dehydration; Malignant neoplasm of right female breast, unspecified estrogen receptor status, unspecified site of breast (CMS/HCC) Start: 06-26-2023 End: 06-26-2023 Subsequent hospital visit by physician Stevie Escobedo DO Work Phone: [facility] Non-Invasive Cardiology Comment on above: Encounter for monito ring cardiotoxic drug therapy Start: 06-24-2023 End: 06-24-2023 Office outpatient visit 25 minutes Stevie Escobedo DO Work Phone: [facility] Comment on above: Malignant neoplasm o [...] Telephone encounter Tisha Fernandez RN Work Phone: [facility] Comment on above: Erroneous encounter- [...] Only Stevie Lockhart l DO Work Phone: [facility] Comment on above: Malignant neoplasm o f upper-outer quadrant of left breast in female, estrogen receptor positive (HCC) (Primary Dx) Start: 06-09-2023 Telephone encounter Stevie jacobsbel DO Work Phone: [facility] Comment on above: Lab Orders Start: 06-04-2023 Telephone encounter [facility] Start: 06-03-2023 End: 06-03-2023 Subsequent hospital visit by physician Stevie Escobedo DO Work Phone: [facility] Comment on above: Malignant neoplasm o f upper-outer quadrant of left breast in female, estrogen receptor positive (HCC) ; Localized edema Start: 06-03-2023 Telephone encounter Stevie Mock oebel DO Work Phone: [facility] Comment on above: Orders Start: 06-03-2023 End: 06-03-2023 Office outpatient visit 25 minutes Stevie E Fanny DO Work Phone: [facility] Comment on above: Malignant neoplasm o [...] Only Stevie E Fanny DO Work Phone: [facility] Comment on above: Malignant neoplasm o f upper-outer quadrant of left breast in female, estrogen receptor positive (HCC) (Primary Dx) Malignant neoplasm o f upper-outer quadrant of left breast in female, estrogen receptor positive (HCC) Start: 05-20-2023 End: 05-20-2023 Orders Only Stevie E Fanny DO Work Phone: [facility] Comment on above: Malignant neoplasm o f upper-outer quadrant of left breast in female, estrogen receptor positive (HCC) (Primary Dx) Malignant neoplasm o f upper-outer quadrant of left breast in female, estrogen receptor positive (HCC) Start: 05-20-2023 End: 05-20-2023 Office outpatient visit 25 minutes Stevie E Fanny DO Work Phone: [facility] Comment on above: Malignant neoplasm o f upper-outer quadrant of left breast in female, estrogen receptor positive (HCC) (Primary Dx) Start: 05-13-2023 End: 05-13-2023 ambulatory Stevie E Fanny DO Work Phone: [facility] Comment on above: Malignant neoplasm o f upper-outer quadrant of left breast in female, estrogen receptor positive (HCC) Start: 05-12-2023 Telephone encounter Stevie jacobsbel DO Work Phone: [facility] Comment on above: order for ECHO Start: 05-08-2023 Orders Only Stevie E Goebe l DO Work Phone: [facility] Comment on above: Malignant neoplasm o f upper-outer quadrant of left breast in female, estrogen receptor positive (HCC) (Primary Dx) Start: 05-06-2023 End: 05-06-2023 Office outpatient visit 25 minutes Stevie E Fanny DO Work Phone: [facility] Comment on above: Malignant neoplasm o f upper-outer quadrant of left breast in female, estrogen receptor positive (HCC) (Primary Dx) Start: 05-06-2023 End: 05-06-2023 ambulatory Stevie E Fanny DO Work Phone: [facility] Comment on above: Malignant neoplasm o f upper-outer quadrant of left breast in female, estrogen receptor positive (HCC) Start: 05-01-2023 Orders Only Stevie E Goebe l DO Work Phone: [facility] Comment on above: Malignant neoplasm o f upper-outer quadrant of left breast in female, estrogen receptor positive (HCC) (Primary Dx) Start: 04-29-2023 End: 04-29-2023 ambulatory Stevie E Fanny DO Work Phone: [facility] Comment on above: Malignant neoplasm o f upper-outer quadrant of left breast in female, estrogen receptor positive (HCC) Start: 04-23-2023 Orders Only Stevie E Goebe l DO Work Phone: [facility] Comment on above: Malignant neoplasm o f upper-outer quadrant of left breast in female, estrogen receptor positive (HCC) (Primary Dx) Start: 04-22-2023 End: 04-22-2023 Office outpatient visit 25 minutes Stevie E Fanny DO Work Phone: [facility] Comment on above: Malignant neoplasm o f upper-outer quadrant of left breast in female, estrogen receptor positive (HCC) (Primary Dx) Start: 04-22-2023 End: 04-22-2023 ambulatory Stevie E Fanny DO Work Phone: [facility] Comment on above: Malignant neoplasm o f upper-outer quadrant of left breast in female, estrogen receptor positive (HCC) Start: 04-15-2023 Orders Only Stevie E Goebe l DO Work Phone: [facility] Start: 04-09-2023 Orders Only Stevie E Goebe l DO Work Phone: [facility] Comment on above: Malignant neoplasm o f upper-outer quadrant of left breast in female, estrogen receptor positive (HCC) (Primary Dx) Start: 04-08-2023 End: 04-08-2023 Office outpatient visit 25 minutes Stevie E Fanny DO Work Phone: [facility] Comment on above: Malignant neoplasm o [...] Stevie E Goebe l DO Work Phone: [facility] Comment on above: Malignant neoplasm o f upper-outer quadrant of left breast in female, estrogen receptor positive (HCC) (Primary Dx) Start: 04-01-2023 End: 04-01-2023 ambulatory Stevie E Fanny DO Work Phone: [facility] Comment on above: Malignant neoplasm o f upper-outer quadrant of left breast in female, estrogen receptor positive (HCC) Start: 03-31-2023 End: 03-31-2023 ambulatory Stevie E Fanny DO Work Phone: [facility] Comment on above: Arrived Start: 03-26-2023 End: 03-26-2023 Orders Only Stevie E Fanny DO Work Phone: [facility] Comment on above: Malignant neoplasm o f upper-outer quadrant of left breast in female, estrogen receptor positive (HCC) (Primary Dx) Malignant neoplasm o f upper-outer quadrant of left breast in female, estrogen receptor positive (HCC) ; Other general symptoms and signs Start: 03-24-2023 Refill Stevie E Goebe l DO Work Phone: [facility] Comment on above: Malignant neoplasm o f upper-outer quadrant of left breast in female, estrogen receptor positive (HCC) Start: 03-18-2023 End: 03-18-2023 Office outpatient new 60 minutes Stevie E Fanny DO Work Phone: [facility] Comment on above: Malignant neoplasm o f upper-outer quadrant of left breast in female, estrogen receptor positive (HCC) (Primary Dx); Other general symptoms and signs Start: 03-06-2023 End: 03-06-2023 Office outpatient new 60 minutes Vicki Diego MD Work Phone: [facility] Comment on above: Malignant neoplasm o f upper-outer quadrant of left breast in female, estrogen receptor positive (HCC) (Primary Dx) Start: 02-27-2023 End: 02-27-2023 Patient encounter procedure Trorie Choi MD Work Phone: General Surgery Comment on above: Malignant neoplasm o f upper-outer quadrant of left breast in female, estrogen receptor positive (HCC) (Primary Dx) Start: 02-26-2023 Telephone encounter Torrie Choi MD Work Phone: General Surgery Start: 02-12-2023 End: 02-12-2023 Office outpatient visit 25 minutes Marie Devi MD Work Phone: [facility] Comment on above: Depression with anxi [...] Study Comments Start: 02-10-2023 Patient encounter procedure [place] Hou MD Work Phone: [facility] Start: 02-06-2023 Telephone encounter Torrie Choi MD Work Phone: General Surgery Comment on above: Patient Update Start: 02-05-2023 Telephone encounter Torrie Choi MD Work Phone: General Surgery Comment on above: surgery concerns Start: 02-05-2023 End: 02-05-2023 Admission to establishment [place] [id number] Work Phone: [facility] Start: 02-05-2023 End: 02-05-2023 [place] [id number] Work Phone: Pre Anesthesia Comment on above: Pre-op evaluation (P rimary Dx); Past history of allergy to penicillin-type antibiotic; MARCY on CPAP; History of uterine cancer; Cerebrovascular accident (CVA), unspecified mechanism (HCC); Anxiety and depression; Parkinsonism, unspecified Parkinsonism type (HCC); Personal history of penicillin allergy Start: 02-05-2023 End: 02-05-2023 Preprocedural examination done [place] [address] Work Phone: [facility] Work Phone: Start: 02-03-2023 End: 02-03-2023 Orders [...] 25 minutes Marie Devi MD Work Phone: [facility] Comment on above: Parkinsonism, unspec ified [...] encounter procedure Dara Sorensen DO Work Phone: [facility] Comment on above: Seborrheic keratosis (Primary Dx); Pigmented skin lesion suspicious for malignant neoplasm Start: 10-24-2022 End: 10-24-2022 Office outpatient visit 15 minutes Dara Sorensen DO Work Phone: [facility] Comment on above: Seborrheic keratosis (Primary Dx) Start: 09-26-2022 ambulatory MD MARIE DEVI Fac ility:[id number] Start: 08-13-2022 AUDIT Marie Devi Work Phone: [facility] Work Phone: Start: 07-19-2022 Chart Update Marie [...] 09-21-2021 Documentation procedure Mammog ari Coordinator [facility] Start: 09-21-2021 Letter encounter Mammography Coordinator [facility] Start: 09-21-2021 End: 09-21-2021 Subsequent hospital [...] DTaP/Tdap/Td Vaccines (2 - Td or Tdap) [facility] Start: 09-01-2033 Urine microalbumin profile DTaP,Tdap,Td Vaccine (2 - Td or Tdap) [facility] Start: 07-17-2027 Lipid panel Lipid Panel [facility] Start: 10-26-2026 Diabetes Screening Diabetes Screenin g [facility] Start: 03-24-2026 Oncology Follow-Up: Breast Cancer Survivorship Plan (#5) Oncology Follow-Up: Breast Cancer Survivorship Plan (#5) [facility] Start: 02-05-2026 DIABETES SCREEN DIABETES SCREEN [facility] Start: 09-22-2025 Oncology Follow-Up: Breast Cancer Survivorship Plan (#4) Oncology Follow-Up: Breast Cancer Survivorship Plan (#4) [facility] Start: 09-18-2025 Medicare Annual Well ness Visit Medicare Annual Wellness Visit (AWV) [facility] Start: 09-02-2025 DIABETES SCREEN DIABETES SCREEN [facility] Start: 04-12-2025 End: 04-12-2025 Patient encounter procedure 04/12/2025 8:45 AM EDT Office Visit [facility] [address] [place] [place] [address] Stevie Escobedo DO [address] [place] [place] [address] [facility] Start: 03-26-2025 End: 10-08-2025 DBT Breast - bilateral screening Bilateral screening mammogram with tomosynthesis Imaging Routine Malignant neoplasm of upper-outer quadrant of left breast in female, estrogen receptor positive (HCC) Expected: 03/26/2025, Expires: 10/08/2025 [facility] [employer] Work Phone: Comment on above: Expected: 03/26/2025 , Expires: 10/08/2025 Start: 03-24-2025 Oncology Follow-Up: Breast Cancer Survivorship Plan (#3) Oncology Follow-Up: Breast Cancer Survivorship Plan (#3) [facility] Start: 03-16-2025 End: 03-16-2025 Patient encounter procedure 03/16/2025 1:30 PM EDT Appointment [facility] Radiation Oncology - [place] [address] [place] [phone] Stevie Escobedo DO [address] [facility] [address] [place] [address] Vicki Diego MD [address] [facility] [address] [place], [place] [id number] [facility] - [place] Start: 01-26-2025 End: 01-26-2025 Patient encounter procedure 01/26/2025 8:00 AM EDT Office Visit [facility] [address] [place] [phone] Leonardo Santos DO [address] [facility] [place], [place] [id number] [facility] Start: 09-22-2024 Screening for malign ant neoplasm of breast Mammogram: Breast Cancer Survivorship Plan (#2) [facility] Start: 08-10-2024 End: 08-10-2024 Patient encounter procedure [facility] Start: 07-31-2024 Medicare Annual Well ness Visit Medicare Annual Wellness Visit (AWV) [facility] Start: 06-23-2024 Medicare Advantage Annual Wellness Visit Medicare Advantage Annual Wellness Visit [facility] Start: 03-25-2024 End: 03-25-2024 Patient encounter procedure 03/25/2024 2:20 PM EDT Appointment Mammography [address] [place] [address] Procedure: LEE SCREENING W SHIVA Mammography Comment on above: Procedure: LEE SCREE MAZIN W SHIVA Start: 03-24-2024 Complete blood count ONCBCN [place] rvivorship Screening (#1) [facility] Start: 03-24-2024 Screening for malign ant neoplasm of breast Mammogram: Breast Cancer Survivorship Plan (#1) [facility] Start: 03-17-2024 End: 03-17-2024 Patient encounter procedure 03/17/2024 2:30 PM EDT Appointment [facility] [address] [place] [phone] Stevie Escobedo DO [address] [facility] [address] [place], [place] [id number] Vicki Diego MD [address] [facility] [address] [place] [address] [facility] Start: 02-22-2024 COVID-19 Vaccine ( season) COVID-19 Vaccine ( season) [facility] Start: 02-22-2024 Covid-19 Vaccine ( season) Covid-19 Vaccine ( season) [facility] Start: 02-22-2024 Influenza vaccination Influenza Vacc ine (#1) [facility] Start: 02-19-2024 End: 02-19-2024 Patient encounter procedure 02/19/2024 9:15 AM EDT Office Visit General Surgery [address] [facility] [address] [place] [address] Torrie Choi MD [address] [facility] [address] [place] [address] follow up General Surgery Comment on above: follow up Start: 02-18-2024 End: 02-18-2024 Patient encounter procedure 02/18/2024 7:00 AM EDT Office Visit [facility] [address] [facility] [address] [place] [phone] Marie Devi MD [address] [facility] [place] [address] [facility] Start: 02-03-2024 End: 02-03-2024 Patient encounter procedure 02/03/2024 9:30 AM EDT Office Visit [facility] [address] [place] [address] [place] [address] Stevie Escobedo DO [address] [place] [address] [place] [address] [facility] Start: 01-12-2024 Depression Monitoring Depression [facility] Start: 01-12-2024 Depresssion Monitoring Depresssion [facility] Start: 12-16-2023 End: 12-16-2023 Patient encounter procedure 12/16/2023 9:30 AM EDT Office Visit [facility] [address] [place] [address] [place] [address] Stevie Escobedo DO [address] [place] [address] [place], [place] [id number] [facility] Start: 12-16-2023 End: 12-16-2023 ambulatory 12/16/2023 9:00 AM EDT Infusion [facility] [address] [place] [phone] Stevie Escobedo DO [address] [place] [place] [address] [facility] Start: 12-03-2023 End: 12-03-2023 Patient encounter procedure 12/03/2023 9:00 AM EDT Appointment [facility] [address] [place] [address] Dara Kearney, SPIRITUAL ADVISOR [facility] Start: 12-01-2023 End: 12-01-2023 Home visit 12/01/2023 9:00 AM EDT Home Care Visit [facility] [address] [place] [address] Dara Kearney, PATRIC [facility] Start: 11-27-2023 End: 11-27-2023 Home visit 11/27/2023 8:00 AM EDT Home Care Visit [facility] [address] [place] [address] Dara Kearney, SPIRITUAL ADVISOR [facility] Start: 11-26-2023 End: 11-26-2023 Patient encounter procedure 11/26/2023 9:00 AM EDT Appointment [facility] [address] [place] [address] Hugo Louise RN [facility] Start: 11-25-2023 End: 11-25-2023 Home visit 11/25/2023 10:00 AM EDT Home Care Visit [facility] [address] [place] [address] Dara Kearney, PATRIC [facility] Start: 11-25-2023 End: 11-25-2023 ambulatory 11/25/2023 9:00 AM EDT Infusion [facility] [address] [place] [phone] Stevie Escobedo DO [address] [place] [place] [address] [facility] Start: 11-20-2023 End: 11-20-2023 Home visit [facility] Start: 11-19-2023 End: 11-19-2023 Home visit 11/19/2023 8:00 AM EDT Home Care Visit [facility] [address] [place] [address] Hugo Louise, HANNAH [facility] Start: 11-18-2023 End: 11-18-2023 Home visit 11/18/2023 12:30 PM EDT Home Care Visit [facility] [address] [place] [address] Dara Kearney, SPIRITUAL ADVISOR [facility] Start: 11-13-2023 End: 11-13-2023 Home visit 11/13/2023 12:30 PM EDT Home Care Visit [facility] [address] [place] [address] Dara Kearney, PATRIC [facility] Start: 11-12-2023 End: 11-12-2023 Home visit [facility] Start: 11-04-2023 End: 11-03-2024 CBC W Auto Differential panel - Blood CBC auto differential Lab STAT Malignant neoplasm of upper-outer quadrant of left breast in female, estrogen receptor positive (HCC) Expected: 11/04/2023, Expires: 11/03/2024 [facility] Work Phone: Comment on above: Expected: 11/04/2023 , Expires: 11/03/2024 Start: 11-04-2023 End: 11-03-2024 Comprehensive metabolic 2000 panel - Serum or Plasma Comprehensive Metabolic Panel - [facility] STAT Malignant neoplasm of upper-outer quadrant of left breast in female, estrogen receptor positive (HCC) Expected: 11/04/2023, Expires: 11/03/2024 [facility] Comment on above: Expected: 11/04/2023 , Expires: 11/03/2024 Start: 11-04-2023 End: 11-04-2023 ambulatory 11/04/2023 10:00 AM EDT Infusion [facility] [address] [place] [phone] Stevie Escobedo DO [address] [place] [address] [place] [address] [facility] Start: 11-04-2023 End: 11-04-2023 Patient encounter procedure 11/04/2023 9:45 AM EDT Office Visit [facility] [address] [place] [address] [place] [address] Stevie Escobedo DO [address] [place] [address] [place] [address] [facility] Start: 10-14-2023 End: 10-13-2024 CBC W Auto Differential panel - Blood CBC auto differential Lab STAT Malignant neoplasm of upper-outer quadrant of left breast in female, estrogen receptor positive (HCC) (HCC) Expected: 10/14/2023, Expires: 10/13/2024 [employer] Work Phone: Comment on above: Expected: 10/14/2023 , Expires: 10/13/2024 Start: 10-14-2023 End: 10-13-2024 Comprehensive metabolic 2000 panel - Serum or Plasma Comprehensive Metabolic Panel - [facility] STAT Malignant neoplasm of upper-outer quadrant of left breast in female, estrogen receptor positive (HCC) (HCC) Expected: 10/14/2023, Expires: 10/13/2024 [employer] Comment on above: Expected: 10/14/2023 , Expires: 10/13/2024 Start: 10-14-2023 End: 10-14-2023 Patient encounter procedure [facility] Start: 10-14-2023 End: 10-14-2023 ambulatory [facility] Start: 09-23-2023 End: 09-22-2024 CBC W Auto Differential panel - Blood CBC auto differential Lab STAT Malignant neoplasm of upper-outer quadrant of left breast in female, estrogen receptor positive (HCC) (HCC) Expected: 09/23/2023, Expires: 09/22/2024 [employer] Work Phone: Comment on above: Expected: 09/23/2023 , Expires: 09/22/2024 Start: 09-23-2023 End: 09-22-2024 Comprehensive metabolic 2000 panel - Serum or Plasma Comprehensive Metabolic Panel - [facility] STAT Malignant neoplasm of upper-outer quadrant of left breast in female, estrogen receptor positive (HCC) (HCC) Expected: 09/23/2023, Expires: 09/22/2024 [facility] Comment on above: Expected: 09/23/2023 , Expires: 09/22/2024 Start: 09-23-2023 End: 09-23-2023 ambulatory [facility] Start: 09-18-2023 End: 07-29-2025 US Heart Transthoracic Transthoracic echocardiogram (TTE) complete with contrast, bubble, strain, and 3D PRN CV Echocardiography Routine Admission for therapeutic drug monitoring Encounter for monitoring cardiotoxic drug therapy Expected: 09/18/2023 (Approximate), Expires: 07/29/2025 [facility] Work Phone: Comment on above: Expected: 09/18/2023 (Approximate), Expires: 07/29/2025 Start: 09-18-2023 End: 09-18-2023 Patient encounter procedure [facility] Non-Invasive Cardiology Start: 09-16-2023 End: 09-16-2023 ambulatory 09/16/2023 1:00 PM EDT Infusion [facility] [address] [place] [phone] Stevie Escobedo DO [address] [place] [address] [place], [place] [phone] [facility] Start: 09-12-2023 End: 09-12-2023 Patient encounter procedure 09/12/2023 1:30 PM EDT Appointment [facility] [address] [place] [address] Vicki Diego MD [address] [place] [address] [facility] Start: 09-11-2023 End: 09-11-2023 Patient encounter procedure 09/11/2023 1:30 PM EDT Appointment [facility] [address] [place] [phone] Vicki Diego MD [address] [place] [address] [facility] Start: 09-05-2023 End: 09-05-2023 Patient encounter procedure [facility] Start: 09-05-2023 Subsequent hospital visit by physician 09/05/2023 10:00 AM EDT Hospital Encounter [facility] [place] [facility] [address] [place] [phone] Stevie Escobedo DO [address] [place] [address] [place] [address] [facility] [place] [facility] Start: 09-02-2023 End: 09-02-2024 Comprehensive metabolic 2000 panel - Serum or Plasma Comprehensive Metabolic Panel - [facility] STAT Malignant neoplasm of upper-outer quadrant of left breast in female, estrogen receptor positive (HCC) (HCC) Expected: 09/02/2023, Expires: 09/02/2024 [facility] [employer] Work Phone: Comment on above: Expected: 09/02/2023 , Expires: 09/02/2024 Start: 09-02-2023 End: 09-01-2024 DXA Skeletal system.axial Views for bone density DEXA bone density axial skeleton Imaging Routine Malignant neoplasm of upper-outer quadrant of left breast in female, estrogen receptor positive (HCC) (HCC) Asymptomatic menopausal state Encounter for monitoring anastrozole therapy Expected: 09/02/2023, Expires: 09/01/2024 [facility] [employer] Work Phone: Comment on above: Expected: 09/02/2023 , Expires: 09/01/2024 Start: 09-02-2023 End: 09-02-2023 ambulatory 09/02/2023 9:00 AM EDT Infusion [facility] [address] [place] [phone] Stevie Escobedo DO [address] [place] [address] [place] [address] [facility] Start: 09-02-2023 End: 09-02-2023 Patient encounter procedure 09/02/2023 8:45 AM EDT Office Visit [facility] [address] [place] [address] [place] [address] Stevie Escobedo, DO [address] [place] [place] [address] [facility] Start: 08-26-2023 End: 08-26-2023 Patient encounter procedure 08/26/2023 9:45 AM EST Office Visit [facility] [address] [place] [address] [place] [address] Stevie Escobedo, DO [address] [place] [address] [place] [address] [facility] Start: 08-26-2023 End: 08-26-2023 ambulatory 08/26/2023 9:00 AM EST Infusion [facility] [address] [place] [address] Stevie Escobedo, DO [address] [place] [address] [place] [address] [facility] Start: 08-12-2023 End: 08-12-2023 Patient encounter procedure 08/12/2023 1:15 PM EST Appointment [facility] [address] [place] [address] [facility] Start: 08-12-2023 End: 08-12-2023 ambulatory 08/12/2023 8:00 AM EST Infusion [facility] [address] [place] [address] Stevie Escobedo DO [address] [place] [place] [address] [facility] Start: 08-11-2023 End: 08-11-2023 Patient [...] EST Infusion [facility] [address] [place] [address] Stevie Escobedo DO [address] [place] [place] [address] [facility] Start: 08-04-2023 End: 08-04-2023 Patient encounter procedure [facility] Start: 08-01-2023 End: 08-01-2023 Patient encounter procedure [facility] Start: 07-31-2023 End: 07-31-2023 Patient encounter procedure [facility] Start: 07-30-2023 End: 07-30-2023 Patient encounter procedure [facility] Start: 07-30-2023 End: 07-30-2023 Patient encounter procedure 07/30/2023 7:10 AM EST Office Visit [facility] [address] [facility] [address] [place] [address] Marie Devi MD [address] [facility], [address] [place], [place] [address] [facility] Start: 07-29-2023 End: 07-29-2023 Patient [...] RAD ONC [address] [place] [address] [facility] Start: 07-18-2023 Medicare Annual Well ness Visit Medicare Annual Wellness Visit (AWV) [facility] Start: 07-18-2023 End: 07-18-2023 Patient encounter procedure 07/18/2023 1:15 PM EST Appointment [facility] [address] [place] [address] [facility] Start: 07-17-2023 End: 07-17-2023 Patient encounter procedure 07/17/2023 4:15 PM EST Appointment [facility] [address] [place] [address] Vicki Diego MD [address] [place] [address] [facility] Start: 07-17-2023 End: 07-17-2023 Patient encounter procedure 07/17/2023 2:45 PM EST Appointment [facility] [address] [place] [address] Vicki Diego MD [address] [facility] [address] [place] [address] [facility] Start: 07-16-2023 End: 07-16-2023 Patient encounter procedure 07/16/2023 4:15 PM EST Appointment [facility] [address] [place] [address] [facility] Start: 07-15-2023 End: 07-15-2023 ambulatory [facility] Comment on above: Arrived Start: 07-15-2023 End: 07-15-2023 Patient encounter procedure [facility] Start: 07-14-2023 End: 07-14-2023 Patient encounter procedure 07/14/2023 4:15 PM EST Appointment [facility] [address] [place] [address] [facility] Start: 07-11-2023 End: 07-11-2023 Patient encounter procedure 07/11/2023 2:15 PM EST Appointment [facility] [address] [place] [phone] Vicki Diego MD [address] [facility] [address] [place] [address] [facility] Start: 07-03-2023 End: 07-03-2023 Patient encounter procedure [facility] Start: 06-26-2023 End: 05-12-2025 US Heart Transthoracic Transthoracic echocardiogram (TTE) complete with contrast, bubble, strain, and 3D PRN CV Echocardiography Routine Encounter for monitoring cardiotoxic drug therapy Expected: 06/26/2023 (Approximate), Expires: 05/12/2025 [facility] Work Phone: Comment on above: Expected: 06/26/2023 (Approximate), Expires: 05/12/2025 Start: 06-26-2023 End: 06-26-2023 Patient encounter procedure 06/26/2023 11:00 AM EST Appointment [facility] Non-Invasive Cardiology [employer] [place] [address] Stevie Escobedo DO [address] [place], [place] [id number] [facility] Non-Invasive Cardiology Start: 06-24-2023 End: 06-24-2023 Patient encounter procedure [facility] Start: 06-24-2023 End: 06-24-2023 ambulatory 06/24/2023 8:00 AM EST Infusion [facility] [address] [place] [address] Stevie Escobedo DO [address] [place] [place] [address] [facility] Start: 06-23-2023 Advance Directive Discussion Advance Directive Discussion [facility] Start: 06-23-2023 Medicare Advantage Annual Wellness Visit Medicare Advantage Annual Wellness Visit [facility] Start: 06-20-2023 End: 06-20-2023 ambulatory [facility] Start: 06-17-2023 End: 06-17-2023 Patient encounter procedure 06/17/2023 10:30 AM EST Office Visit [facility] [address] [place] [address] [place] [address] Stevie Escobedo, DO [address] [place] [address] [place] [address] [facility] Start: 06-17-2023 End: 06-17-2023 ambulatory 06/17/2023 10:00 AM EST Infusion [facility] [address] [place] [address] Stevie Escobedo DO [address] [place] [place] [address] [facility] Start: 06-13-2023 End: 06-13-2023 ambulatory 06/13/2023 9:00 AM EST Infusion [facility] [address] [place] [address] Stevie Escobedo DO [address] [place] [address] [facility] Start: 06-10-2023 End: 06-10-2023 ambulatory 06/10/2023 10:00 AM EST Infusion [facility] [address] [place] [address] Stevie Escobedo DO [address] [place] [place] [address] [facility] Start: 06-06-2023 End: 06-06-2023 ambulatory 06/06/2023 9:00 AM EST Infusion [facility] [address] [place] [address] Stevie Escobedo, DO [address] [place] [place] [address] [facility] Start: 06-03-2023 End: 06-03-2023 Patient encounter procedure 06/03/2023 11:45 AM EST Office Visit [facility] [address] [place] [address] [place] [address] Stevie Escobedo DO [address] [place] [place] [address] [facility] Start: 06-03-2023 End: 06-03-2023 Patient encounter procedure 06/03/2023 9:15 AM EST Office Visit [facility] [address] [place] [place] [phone] Stevie Escobedo DO [address] [place] [place] [address] [facility] Start: 06-03-2023 End: 06-03-2023 ambulatory [facility] Start: 05-30-2023 End: 05-30-2023 ambulatory 05/30/2023 9:00 AM EST Infusion [facility] [address] [place] [address] Stevie Escobedo DO [address] [place] [place] [address] [facility] Start: 05-27-2023 End: 05-27-2023 ambulatory [facility] Start: 05-23-2023 End: 05-23-2023 ambulatory 05/23/2023 9:00 AM EST Infusion [facility] [address] [place] [phone] Stevie Escobedo DO [address] [place] [place] [address] [facility] Start: 05-20-2023 End: 05-20-2023 Patient encounter procedure 05/20/2023 10:15 AM EST Office Visit [facility] [address] [place] [address] [place] [address] Stevie Escobedo DO [address] [place] [place] [address] [facility] Start: 05-20-2023 End: 05-20-2023 ambulatory 05/20/2023 9:00 AM EST Infusion [facility] [address] [place] [address] Stevie Escobedo DO [address] [place] [address] [facility] Start: 05-13-2023 End: 05-13-2023 ambulatory [facility] Start: 05-06-2023 End: 05-06-2023 Patient encounter procedure 05/06/2023 10:45 AM EST Office Visit [facility] [address] [place] [place] [address] Stevie Escobedo DO [address] [place] [address] [facility] Start: 05-06-2023 End: 05-06-2023 ambulatory [facility] Start: 04-29-2023 End: 04-29-2023 ambulatory [facility] Start: 04-22-2023 End: 04-22-2023 Patient encounter procedure 04/22/2023 8:45 AM EDT Office Visit [facility] [address] [place] [place] [address] Stevie Escobedo DO [address] [place] [address] [facility] Start: 04-22-2023 End: 04-22-2023 ambulatory [facility] Start: 04-15-2023 End: 04-15-2023 ambulatory [facility] Start: 04-08-2023 End: 04-08-2023 Patient encounter procedure 04/08/2023 10:45 AM EDT Office Visit [facility] [address] [place] [place] [address] Stevie Escobedo DO [address] [place] [address] [facility] Start: 04-08-2023 End: 04-08-2023 ambulatory [facility] Start: 04-01-2023 End: 04-01-2023 ambulatory 04/01/2023 8:00 AM EDT Infusion [facility] [address] [place] [address] [facility] Start: 03-31-2023 End: 03-31-2023 ambulatory 03/31/2023 11:00 AM EDT Infusion [facility] [address] [place] [address] Stevie Escobedo DO [address] [place], [place] [phone] [facility] Start: 03-26-2023 End: 03-26-2023 Patient encounter procedure 03/26/2023 2:00 PM EDT Appointment [facility] 1 [facility] Stress 1 [place] [address] Stevie Escobedo DO [address] [place] [address] [facility] Start: 03-18-2023 End: 03-18-2025 US Heart Transthoracic Transthoracic echocardiogram (TTE) complete with contrast, bubble, strain, and 3D PRN CV Echocardiography Routine Malignant neoplasm of upper-outer quadrant of left breast in female, estrogen receptor positive (HCC) Other general symptoms and signs Expected: 03/18/2023 (Approximate), Expires: 03/18/2025 [facility] Work Phone: Comment on above: Expected: 03/18/2023 (Approximate), Expires: 03/18/2025 Start: 03-18-2023 End: 03-18-2023 Patient encounter procedure 03/18/2023 1:30 PM EDT Office Visit [facility] [address] [place] [place] [phone] Stevie Escobedo DO [address] [place] [address] [facility] Start: 02-21-2023 COVID-19 Vaccine ( season) COVID-19 Vaccine ( season) [facility] Start: 02-21-2023 Influenza vaccination [facility] Start: 02-10-2023 End: 02-10-2023 Patient encounter procedure 02/10/2023 3:30 PM EDT Office Visit [facility] [address] [place] [address] [address] [place] [address] Marie Devi MD [address] [place] [address], [address] [place] [address] [facility] Start: 01-23-2023 FUV, Provider: Marie Devi, Status: Pen, Time: 7:10 AM FUV, Provider: Marie Devi, Status: Pen, Time: 7:10 AM [facility] Work Phone: Start: 01-23-2023 End: 01-23-2023 Patient encounter procedure 01/23/2023 7:10 AM EDT Office Visit [facility] [address] [place] [address] [address] [place] [address] Marie Devi MD [address] [place] [address], [address] [place] [phone] [facility] Start: 09-11-2022 Zoster Vaccines (2 of 2) Zoster Vacc clint (2 of 2) [facility] Start: 07-17-2022 Patient encounter procedure MCRANNUAL, Provider: Marie Devi, Status: Pen, Time: 7:10 AM [facility] Work Phone: Start: 06-23-2022 ADVANCE DIRECTIVE DISCUSSION ADVANCE DIRECTIVE DISCUSSION [facility] Start: 06-23-2022 DEPRESSION ASSESSMENT DEPRESSION ASS ESSMENT [facility] Start: 01-10-2022 FUV, Provider: Marie Devi, Status: Pen, Time: 7:10 AM FUV, Provider: Marie Devi, Status: Pen, Time: 7:10 AM [facility] Work Phone: Start: 08-01-2021 COVID-19 Vaccine (4 - Booster for Moderna series) COVID-19 Vaccine (4 - Booster for Moderna series) [facility] Start: 08-01-2021 COVID-19 Vaccine (4 - Moderna risk series) COVID-19 Vaccine (4 - Moderna risk series) [facility] Start: 08-01-2021 COVID-19 VACCINE (4 - Moderna series) COVID-19 VACCINE (4 - Moderna series) [facility] Start: 07-12-2021 FUV, Provider: Marie Devi, Status: Pen, Time: 7:00 AM FUV, Provider: Marie Devi, Status: Pen, Time: 7:00 AM [facility] Work Phone: Start: 06-23-2021 ADVANCE DIRECTIVE DISCUSSION ADVANCE DIRECTIVE DISCUSSION [facility] Start: 2021 RSV High Risk: (Elde rly (60+) or Population) (1 - 1-dose 75+ series) RSV High Risk: (Elderly (60+) or Population) (1 - 1-dose 75+ series) [facility] Start: 2021 RSV Immunization for Adults (1 - 1-dose 75+ series) RSV Immunization for Adults (1 - 1-dose 75+ series) [facility] Start: 2021 RSV Vaccine (1 - 1-d ose 75+ series) RSV Vaccine (1 - 1-dose 75+ series) [facility] Start: 01-10-2021 FUV, Provider: Marie Devi, Status: Pen, Time: 7:00 AM FUV, Provider: Marie Devi, Status: Pen, Time: 7:00 AM [facility] Work Phone: Start: 05-31-2020 Pneumococcal vaccination Pneum ococcal Vaccine (3 of 3 - PCV20 or PCV21) [facility] Start: 05-31-2020 Pneumococcal Vaccine : 65+ (3 of 3 - PPSV23 or PCV20) Pneumococcal Vaccine: 65+ (3 of 3 - PPSV23 or PCV20) [facility] Start: 05-31-2020 Pneumococcal Vaccine : 65+ Years (3 - PPSV23 or PCV20) Pneumococcal Vaccine: 65+ Years (3 - PPSV23 or PCV20) [facility] Start: 01-05-2020 Xray Bone Dens ity, Dexa 1 or More Sites [facility] Work Phone: Start: 05-31-2016 Pneumococcal Vaccine : 65+ Years (#3) Pneumococcal Vaccine: 65+ Years (#3) [facility] Start: 05-31-2016 Pneumococcal Vaccine : 65+ Years (3 - PPSV23 if available, else PCV20) Pneumococcal Vaccine: 65+ Years (3 - PPSV23 if available, else PCV20) [facility] Start: 05-31-2016 Pneumococcal Vaccine : 65+ Years (3 - PPSV23 or PCV20) Pneumococcal Vaccine: 65+ Years (3 - PPSV23 or PCV20) [facility] Start: 07-31-2015 Pneumococcal Vaccine : 50+ Years (3 of 3 - PPSV23, PCV20 or PCV21) Pneumococcal Vaccine: 50+ Years (3 of 3 - PPSV23, PCV20 or PCV21) [facility] Start: 07-31-2015 Pneumococcal Vaccine : 65+ Years (3 of 3 - PPSV23 or PCV20) Pneumococcal Vaccine: 65+ Years (3 of 3 - PPSV23 or PCV20) [facility] Start: 05-07-2015 LIPID SCREEN LIPID SCREEN [facility] Start: 05-18-2013 DIABETES SCREEN DIABETES SCREEN [facility] Start: 06-18-2011 Adult depression screening assessment DEPRESSION SCREENING [facility] Start: 2011 PNEUMOCOCCAL: 65+ (1 - PCV) PNEUMOCOCCAL: 65+ (1 - PCV) [facility] Start: 2011 PNEUMOVAX AGE 65 AND OVER WITH 5YR LOOKBACK (#1) PNEUMOVAX AGE 65 AND OVER WITH 5YR LOOKBACK (#1) [facility] Start: 2006 RSV Immunization age d 60 or older (1 - 1-dose 60+ series) RSV Immunization aged 60 or older (1 - 1-dose 60+ series) [facility] Start: 2006 RSV patient s and/or patients aged 60+ years (1 - 1-dose 60+ series) RSV patients and/or patients aged 60+ years (1 - 1-dose 60+ series) [facility] Start: 2006 RSV Vaccine (1 - 1-d ose 60+ series) RSV Vaccine (1 - 1-dose 60+ series) [facility] Start: 02-01-1996 SHINGRIX VACCINE (1 of 2) SHINGRIX VACCINE (1 of 2) [facility] Start: 1991 COLOGUARD (FIT-DNA) COLOGUARD (FIT-D NA) [facility] Start: 1991 Colonoscopy COLONOSCOPY [facility] Start: 1991 COLORECTAL CANCER SCREENING COLORECTAL CANCER SCREENING [facility] Start: [address] COLONOGRAPHY [facility] Start: 1991 FECAL OCCULT BLOOD FECAL OCCULT BLOO D [facility] Start: 1991 SIGMOIDOSCOPY SIGMOIDOSCOPY [facility] Start: 02-01-1968 DTaP/Tdap/Td Vaccine s (1 - Tdap) DTaP/Tdap/Td Vaccines (1 - Tdap) [facility] Start: 1965 DTaP/Tdap/Td Vaccine s (1 - Tdap) DTaP/Tdap/Td Vaccines (1 - Tdap) [facility] Start: 1965 Urine microalbumin profile DTAP,TDAP,TD (1 - Tdap) [facility] Start: 02-01-1964 HEPATITIS C SCREENING HEPATITIS C [facility] Start: 02-01-1964 Hepatitis C screening Hepatitis C [facility] Start: 1958 Depression Screening Depression Scre ening [facility] Start: 1958 Depresssion Monitoring Depresssion M onitoring [employer] Start: 1946 Medicare Advantage Annual Wellness Visit (AWV) Medicare Advantage Annual Wellness Visit (AWV) [employer] Start: 1946 Medicare Annual Well ness Visit Medicare Annual Wellness Visit (AWV) [facility] Start: 1946 Screening for osteoporosis Bone Density Scan [employer] End: 06-03-2023 Bacteria identified in Urine by Culture [employer] Work Phone: Comment on above: Once (Lab) for 1 Occ urrences starting 06/03/2023 until 06/03/2023 End: 03-24-2024 CBC W Auto Differential panel - Blood CBC auto differential Lab STAT Malignant neoplasm of upper-outer quadrant of left breast in female, estrogen receptor positive (HCC) Once a week for 14 Occurrences starting 03/25/2023 until 03/24/2024 [employer] Work Phone: Comment on above: Once a week for 14 O ccurrences starting 03/25/2023 until 03/24/2024 End: 06-09-2024 CBC W Auto Differential panel - Blood CBC auto differential Lab STAT Malignant neoplasm of upper-outer quadrant of left breast in female, estrogen receptor positive (HCC) Every 3 weeks for 8 Occurrences starting 06/10/2023 until 06/09/2024 [employer] Work Phone: Comment on above: Every 3 weeks for 8 Occurrences starting 06/10/2023 until 06/09/2024 End: 03-24-2024 Comprehensive metabolic 1998 panel - Serum or Plasma Comprehensive metabolic panel Lab STAT Malignant neoplasm of upper-outer quadrant of left breast in female, estrogen receptor positive (HCC) Once a week for 14 Occurrences starting 03/25/2023 until 03/24/2024 [employer] Comment on above: Once a week for 14 O ccurrences starting 03/25/2023 until 03/24/2024 End: 06-09-2024 Comprehensive metabolic 1998 panel - Serum or Plasma Comprehensive metabolic panel Lab STAT Malignant neoplasm of upper-outer quadrant of left breast in female, estrogen receptor positive (HCC) Every 3 weeks for 8 Occurrences starting 06/10/2023 until 06/09/2024 [employer] Comment on above: Every 3 weeks for 8 Occurrences starting 06/10/2023 until 06/09/2024 End: 07-03-2023 CT Sim WO [facility] Work Phone: Comment on above: Once for 1 Occurrenc es starting 07/03/2023 until 07/03/2023 End: 03-04-2025 DBT Breast - bilateral screening LEE SCREENING W [facility] Radiology Routine Visit for screening mammogram Malignant neoplasm of upper-outer quadrant of left breast in female, estrogen receptor positive (HCC) 1 Occurrences starting 02/04/2024 until 03/04/2025 [facility] Work Phone: Comment on above: 1 Occurrences starti ng 02/04/2024 until 03/04/2025 DERMATOPATHOLOGY -DERMPATH LAB DERMATOPATHOLOGY -DERMPATH LAB Pathology and Cytology Routine Pigmented skin lesion suspicious for malignant neoplasm Ordered: 10/30/2022 [facility] Service Area Work Phone: Comment on above: Ordered: 10/30/2022 End: 03-04-2024 LEE NDL LOC W LEE GD LEFT LEE NDL LOC W LEE GD LEFT Radiology Routine Malignant neoplasm of upper-outer quadrant of left breast in female, estrogen receptor positive (HCC) 1 Occurrences starting 02/03/2023 until 03/04/2024 [facility] Work Phone: Comment on above: 1 Occurrences starti ng 02/03/2023 until 03/04/2024 End: 03-04-2024 NM INJ SENTINEL NODE BREAST LEFT NM INJ SENTINEL NODE BREAST LEFT Radiology Routine Malignant neoplasm of upper-outer quadrant of left breast in female, estrogen receptor positive (HCC) 1 Occurrences starting 02/03/2023 until 03/04/2024 [facility] Work Phone: Comment on above: 1 Occurrences starti ng 02/03/2023 until 03/04/2024 SURGICAL PATHOLOGY [facility] Work Phone: Comment on above: Release Upon [place] for 1 Occurrences starting 01/28/2023, 1 completed End: 02-20-2024 US BIOPSY BREAST LEFT US BIOPSY BREAST LEFT Radiology Routine Abnormal finding on radiological examination of breast 1 Occurrences starting 01/21/2023 until 02/20/2024 [facility] Work Phone: Comment on above: 1 Occurrences starti ng 01/21/2023 until 02/20/2024 End: 07-31-2023 US Thyroid gland [facility] Service Area Work Phone: Comment on above: Once for 1 Occurrenc es starting 07/31/2023 until 07/31/2023 Vascular US lower extremity venous duplex left Vascular US lower extremity venous duplex left CV Vascular Ultrasound STAT Malignant neoplasm of upper-outer quadrant of left breast in female, estrogen receptor positive (HCC) Localized edema 06/03/2023 3:42 PM EST [facility] Work Phone: [facility] Work Phone: [facility] NEGATED: Highlighted row has been ruled out! Planned Goals not documented [facility] Work Phone: Immunizations Immunization Date Immunization Notes Care Provider Zahira [place] 03-12-2024 influenza, high dose seasonal, preservative-free Leonardo Stanec DO Work Phone: [facility] 09-02-2023 tetanus toxoid, redu allegra diphtheria toxoid, and acellular pertussis vaccine, adsorbed Leonardo Stanec DO Work Phone: [facility] 03-13-2023 influenza virus vacc ine, unspecified formulation Chair 1 [facility] 03-03-2023 Flu vaccine, quadrivalent, high-dose, preservative free, age 65y+ (FLUZONE) Marie Devi MD Work Phone: [facility] Work Phone: 03-03-2023 influenza virus vacc ine, unspecified formulation Torrie Choi MD Work Phone: [facility] 02-27-2023 zoster vaccine recombinant Marie Devi MD Work Phone: [facility] Work Phone: 07-17-2022 Fluzone High-Dose Quadrivalent 0.7 ML Intramuscular Suspension Prefilled Syringe; Translations: [Fluzone High-Dose Quadrivalent 0.7 ML Intramuscular Suspension Prefilled Syringe] Marie Devi Work Phone: [facility] Work Phone: Comment on above: Series: 07-17-2022 influenza, high dose seasonal, preservative-free Marie Devi MD Work Phone: [facility] Work Phone: 07-17-2022 zoster vaccine recombinant Dara Sorensen DO Work Phone: [facility] Work Phone: 07-17-2022 influenza virus vacc ine, unspecified formulation Marie Devi MD Work Phone: [facility] Work Phone: 07-12-2021 Fluzone High-Dose Quadrivalent 0.7 ML Intramuscular Suspension Prefilled Syringe; Translations: [Fluzone High-Dose Quadrivalent 0.7 ML Intramuscular Suspension Prefilled Syringe] Marie Devi Work Phone: [facility] Work Phone: Comment on above: Series: 07-12-2021 influenza, high dose seasonal, preservative-free Marie Devi MD Work Phone: [facility] Work Phone: 07-12-2021 influenza, seasonal, injectable Dara Sorensen DO Work Phone: [facility] Work Phone: 07-12-2021 influenza virus vacc ine, unspecified formulation Dara Sorensen DO Work Phone: [facility] Work Phone: 06-06-2021 Moderna COVID-19 Vac cine 100 MCG/0.5ML Intramuscular Suspension Marie Devi Work Phone: [facility] Work Phone: 10-14-2020 Moderna COVID-19 Vac cine 100 MCG/0.5ML Intramuscular Suspension Marie Devi Work Phone: [facility] Work Phone: 09-16-2020 Moderna COVID-19 Vac cine 100 MCG/0.5ML Intramuscular Suspension Marie Devi Work Phone: [facility] Work Phone: 07-06-2019 influenza, high dose seasonal, preservative-free; Translations: [Fluzone High-Dose 0.5 ML Intramuscular Suspension Prefilled Syringe] Marie Devi [facility] Work Phone: Comment on above: Series: 07-06-2019 influenza virus vacc ine, unspecified formulation Dara Sorensen DO Work Phone: [facility] Work Phone: 06-26-2018 influenza, high dose seasonal, preservative-free; Translations: [Fluzone High-Dose 0.5 ML Intramuscular Suspension Prefilled Syringe] Marie Devi [facility] Work Phone: Comment on above: Series: 06-10-2017 influenza, high dose seasonal, preservative-free; Translations: [Fluzone High-Dose 0.5 ML Intramuscular Suspension Prefilled Syringe] Marie Devi [facility] Work Phone: Comment on above: Series: 05-23-2016 influenza, seasonal, injectable Darajuwan Sorensen DO Work Phone: [facility] Work Phone: 05-23-2016 influenza, injectabl e, quadrivalent, preservative free; Translations: [Fluarix Quadrivalent 0.5 ML Intramuscular Suspension Prefilled Syringe] [facility] Work Phone: Comment on above: Series: 05-31-2015 pneumococcal conjuga te vaccine, 13 valent; Translations: [Prevnar 13 Intramuscular Suspension] Marie Devi [facility] Work Phone: Comment on above: Series: 04-05-2015 influenza virus vacc ine, unspecified formulation Dara Sorensen DO Work Phone: [facility] Work Phone: 06-01-2014 influenza, seasonal, injectable Darajuwan Sorensen DO Work Phone: [facility] Work Phone: 06-01-2014 influenza, injectabl e, quadrivalent, preservative free; Translations: [Fluzone Quadrivalent 0.5 ML Intramuscular Suspension] Marie Devi [facility] Work Phone: Comment on above: Series: 05-27-2013 influenza virus vacc ine, unspecified formulation Marie Devi Work Phone: [facility] Work Phone: Comment on above: Series: 05-27-2013 influenza, seasonal, injectable Dara Sorensen DO Work Phone: [facility] Work Phone: 05-27-2013 influenza, seasonal, injectable Marie Shandra [facility] Work Phone: 04-03-2012 influenza, seasonal, injectable Dara Sorensen DO Work Phone: [facility] Work Phone: 04-02-2012 influenza virus vacc ine, unspecified formulation Marie Devi Work Phone: [facility] Work Phone: Comment on above: Series: 04-02-2012 influenza, seasonal, injectable Marie Devi [facility] Work Phone: 07-31-2010 influenza virus vacc ine, unspecified formulation Marie Devi Work Phone: [facility] Work Phone: Comment on above: Series: 07-31-2010 pneumococcal polysaccharide vaccine, 23 valent Marie Devi Work Phone: [facility] Work Phone: Comment on above: Series: 07-31-2010 pneumococcal vaccine , unspecified formulation Marie Devi Work Phone: [facility] Work Phone: 07-31-2010 influenza, seasonal, injectable Marie Devi [facility] Work Phone: 07-31-2010 pneumococcal polysaccharide vaccine, 23 valent Marie Devi [facility] Work Phone: influenza virus vacc ine, unspecified formulation Marie Devi Work Phone: [facility] Work Phone: Comment on above: Approx 05Apr2015 Ser ies: influenza, seasonal, injectable Marie Devi [facility] Work Phone: Comment on above: Approx 05Apr2015 Payers Date Payer Category Payer Medicare (Managed Care) [employer] G [employer] CHOICE [id number] [facility] [id number] 2013 Medicare HUMANA MEDICARE HU[employer]NA MEDICARE PPO [id number] 2013-Present [phone] [address] [address] [place] [address] O [id number] 2013 Medicare [id number] 2013 Private Health Insurance [id number] 1945 Unknown [id number] [id number] 1945 Unknown [id number] [id number] 1945 Unknown [id number] [id number] 1945 Unknown [id number] [id number] 1945 Unknown [id number] [id number] 1945 Unknown [id number] [id number] 1945 Unknown [id number] 2.1245 1945 Unknown [id number] [id number] 1945 Unknown [id number] [id number] 1945 Unknown [id number] [id number] Unknown Social History Date Type Detail Facility Start: 10-29-2022 End: 09-17-2024 Never a smoker Never a smoker [facility] Start: 10-24-2022 End: 03-06-2023 Tobacco smoking status IDIS Never smoked tobacco [facility] Start: 01-17-2020 End: 06-05-2023 Alcohol intake Current non-drinker of alcohol (finding) [facility] Start: 1945 Sex Assigned At Not on file [facility] Start: 09-11-2021 End: 09-17-2024 Exposure to SARS-CoV-2 (event) Not sure [facility] Start: 10-24-2022 End: 03-06-2023 Tobacco use and exposure Smokeless tobacco non-user [facility] Work Phone: Start: 10-29-2022 End: 09-17-2024 Gender identity Not on file [facility] National Score (1-100), lower number is lower risk 51 [facility] Start: 01-23-2023 End: 09-17-2024 Alcohol intake Ex-drinker (finding) [facility] Work Phone: How often to you hav e a drink containing alcohol? Never [facility] Has the [employer], gas, oil, or water [employer] threatened to shut off services in your home in past 12Mo No [facility] (I/We) worried whether (my/our) food would run out before (I/we) got money to buy more. Never true [facility] How often do you nee d to have someone help you when you read instructions, pamphlets, or other written material from your doctor or pharmacy [SILS] Patient unable to respond [facility] Work Phone: Start: 02-27-2023 Sex Female (finding) [facility] How often do you nee d to have someone help you when you read instructions, pamphlets, or other written material from your doctor or pharmacy [SILS] Always [facility] Work Phone: NEGATED: Highlighted row - - [facility] Work Phone: NEGATED: Highlighted rowStart: SHEA History of tobacco use Passive smoker [facility] Work Phone: Functional Status Date Assessment Result Facility 09-17-2024 Generalized anxiety disorder 7 item (CLIFTON-7) [facility] Work Phone: 09-17-2024 Patient Health Questionnaire 2 item (PHQ-2) [Reported] [facility] Work Phone: 09-17-2024 PHQ-9 quick depressi on assessment panel [Reported.PHQ] [facility] Work Phone: [facility] Work Phone: NEGATED: Highlighted row Functional performance Functional status health issues are not documented [facility] Work Phone: Mental Status Date Assessment Result Facility NEGATED: Highlighted row Cognitive function [Interpretation] Cognitive status health issues are not documented [facility] Work Phone: Clinical Notes 07-13-2020 to 12-10-2024 Assessment & Plan Note - Leonardo Santos, DO - 10/10/2024 10:14 PM EDTAssessment & Plan Note - Leonardo Santos, DO - 10/10/2024 10:14 PM EDTAdiana Santos, DO - 09/17/2024 1:30 PM EDT Note Date & Type Note Facility 12-10-2024 Note HNO ID: [id number] Author: JENNIFER CHAUDHRY RN Service: Care Management Author Type: Registered Nurse Type: Care Mgt Progress Note Filed: 12/10/2024 13:32 Note Text: CARE MANAGEMENT DISCHARGE NOTE SERVICE DATE: December 10, 2024 SERVICE TIME: 1:29 PM Admission Date: 12/03/2024 LOS: 2 days Discharge Arrangement Discharge Arrangement: [facility] Facility Was an expedited discharge program used?: No Services Arranged SNF Placement Provider Name: [facility] SNF Caregiver Assessment Caregiver is ready, willing and able to meet the patient's needs as recommended by the inter-professional team: Yes Name of Caregiver: [facility] Transportation Arrangements Transportation Arrangements: Ambulance Transportation Agency and Phone #:: [facility] [phone] Date of Trip: 12/10/24 Time of Trip: [id number] Type of Service: BLS Non-emergency Is Patient Medicaid Pending?: No Was transportation financial coverage discussed with family?: Patient, Family [employer] Location: [place] Destination: SNF Handoff Communication: Handoff to: Primary Care Physician Primary Care Physician Name/Phone: Dr Devi SOC sent Additional Information: Per MD patient has been cleared for dc today Patient will dc to [facility] SNF under private pay skilled services at [...] DATE: December 10, 2024 TIME: 1:29 PM [facility] 12-10-2024 Note HNO ID: [id number] Author: TORRIE CHOI MD Service: General Surgery Author Type: Physician Type: Plan of Care Filed: 12/10/2024 11:57 Note Text: Doing well - wound healing, no hematoma. OK for discharge. Will call with path results. No follow up needed. [facility] 12-09-2024 Note HNO ID: [id number] Author: GREG AGEE JR, MD Service: Neurology [...] pain level of 0. Greg Agee MD [facility] 12-09-2024 Note HNO ID: [id number] Author: SHAW KINSEY MD Service: Hospital Medicine [...] a sporadic cough (more content not included)... [facility] 12-08-2024 Note HNO ID: [id number] Author: SHAW KINSEY MD Service: Care Management [...] DATE: December 08, 2024 TIME: 2:01 PM [facility] 12-08-2024 Note HNO ID: [id number] Author: SHAW KINSEY MD Service: Hospital Medicine [...] STATUS currently will (more content not included)... [facility] 12-08-2024 Note HNO ID: [id number] Author: LUCIUS DUBOSE PA-C Service: General Surgery Author Type: Physician Twine Reeling Machine Operator Type: Plan of Care Filed: 12/08/2024 09:23 Note Text: Patient on the OR schedule tomorrow with Dr. Choi for temporal artery biopsy. NPO after midnight for OR. SIGNATURE: Lucius Dubose PA-C PATIENT NAME: Madiha Perales DATE: December 08, 2024 TIME: 9:21 AM [facility] 12-08-2024 Note HNO ID: [id number] Author: JENNIFER CHAUDHRY RN Service: Care Management Author Type: Registered Nurse Type: Care Mgt Progress Note Filed: 12/08/2024 14:05 Note Text: CARE MANAGEMENT PROGRESS NOTE SERVICE DATE: 12/08/2024 SERVICE TIME: 8:21 AM LOS: 0 days Needs Prior to Discharge: Other: See Comment Per [facility] Per medical billing supervisor at [facility] offer a p2p for SNF pre-cert. P2P needs to be completed by 11:40am on 12/08. P2P phone # [phone] opt. 1 CM updated attending MD 10:30- Per MD P2P completed and upheld CM met with patient, spouse and daughter at bedside to provide update At this time they would like to private pay for SNF Requesting to ask [facility], [facility] and [facility] if they would accept private pay Referrals updated 14:00- CM met with family at bedside and provided update on private pay response from facilities [facility] will accept for SNF under private pay Family agreeable. CM spoke with air traffic coordinator Hanna number given for business department to discuss financial piece, CM provided to daughter Per Hanna she is unable to accept wkend DC Requesting [facility] Family requesting medical transport SIGNATURE: Jennifer Chaudhry RN PATIENT NAME: Madiha Perales DATE: December 08, 2024 TIME: 8:21 AM [facility] 12-07-2024 Note HNO ID: [id number] Author: SHAW KINSEY MD Service: Hospital Medicine [...] CCA DNI *Leno (more content not included)... [facility] 12-07-2024 Note HNO ID: [id number] Author: LUCHO NELSON RN Service: Care Management Author Type: Registered Nurse Type: Care Mgt Progress Note Filed: 12/07/2024 12:28 Note Text: CARE MANAGEMENT PROGRESS NOTE SERVICE DATE: 12/07/2024 SERVICE TIME: 12:27 PM LOS: 0 days Needs Prior to Discharge: Precertification, Discharge Transportation CT ordered for [facility]. CM spoke to karmen Acuna via phone. Confirmed [facility] is FOC and accepting. Precert initiated. Will need dc transport. SIGNATURE: Lucho Nelson RN PATIENT NAME: Madiha Perales DATE: December 07, 2024 TIME: 12:27 PM [facility] 12-06-2024 Note HNO ID: [id number] Author: SHAW KINSEY MD Service: Hospital Medicine [...] using voice evelyne (more content not included)... [facility] 12-06-2024 Note HNO ID: [id number] Author: JENNIFER CHAUDHRY RN Service: Care Management [...] rec SNF Family agreeable with referral to [facility] Per family still reviewing for additional SNF choices 1553- CM met with patient and family [facility] still reviewing Family/patient requesting referrals to [address] [place] [address] CM to follow up with daughter Stevie Castelan) at [phone] with all SNF responses SIGNATURE: Jennifer Chaudhry RN PATIENT NAME: Madiha Perales DATE: December 06, 2024 TIME: 2:31 PM [facility] 12-05-2024 Note HNO ID: [id number] Author: SHAW KINSEY MD Service: Hospital Medicine [...] Shaw Kinsey MD PATIENT NAME: Madiha Perales [facility] 12-05-2024 Note HNO ID: [id number] Author: CHARLETTE WITT RN Service: Care Management Author Type: Registered Nurse Type: Care Mgt Initial Assessment Filed: 12/05/2024 11:49 Note Text: CARE MANAGEMENT: ASSESSMENT AND DISCHARGE PLAN SERVICE DATE: December 05, 2024 SERVICE TIME: 09:59 am PCP: Marie Devi MD ([facility]) Primary Contact: Extended Emergency Contact Information Primary Emergency Contact: LucerosapnaStevie Relation: Daughter Secondary Emergency Contact: Marcos Perales Relation: Spouse Admission Status: Observation Insurance Provider: HUMANA MEDICARE PPO Discharge Planning requested by: Per Department Practice Potential Transition Plans Chcf Facility/Intermediate Care Facility, To Be Determined Advance Directives Current Advance Directive: Health Care Power of Sticker Machine Operator, Living Will In Chart: No Research Mechanic Attempted to Assist with AD Completion: Yes [...] Be able to go home, Better mobility [place] of Choice Explained: [place] of Choice Given: Yes Level of Care Discussed: Chcf Facility Are you interested in bedside delivery [...] assessment completed with spouse. Patient presented to [facility] ED c/o confusion. Patient admitted to Observation [...] DATE: December 05, 2024 TIME: 11:44 AM [facility] 12-04-2024 Note HNO ID: [id number] Author: SHAW KINSEY MD Service: Hospital Medicine [...] Shaw Kinsey MD PATIENT NAME: Madiha Perales [facility] 12-03-2024 Note SARS-COV-2 (AGENT OF COVID-19) RNA: Not detected INFLUENZA A RNA: Not detected INFLUENZA B RNA: Not detected RESPIRATORY SYNCYTIAL VIRUS (RSV) RNA: Not detected [facility] Comment on above: Performed By: #### 9 [id number] ####[facility] [id number] [place], [place] [id number] [place] [address] OF [facility] 04-20-2025 Evaluation + Plan note Associated Problem(s): Depression with anxiety Currently on Cymbalta, feels like she has a good dose. Has better days where parksinson's isn't as much an issue, but having more an more bad days. - Continue current dose, no changes. [facility] Work Phone: 10-10-2024 Miscellaneous Notes Associated Problem(s): Depression with anxiety Currently on Cymbalta, feels like she has a good dose. Has better days where parksinson's isn't as much an issue, but having more an more bad days. - Continue current dose, no changes. documented in this encounter [facility] Work Phone: 09-17-2024 History of Present illness Narrative Images from the original note were not included. FAMILY MEDICINE ANNUAL MEDICARE WELLNESS VISIT Madiha Perales [id number] 1945 PCP: Leonardo Santos DO Chief Complaint: Chief Complaint Patient presents with Medicare Annual Wellness Visit Subsequent Pt presents for annual MWV- ABN was given to pt and signed, pt verbalized understanding. SUBJECTIVE Madiha Perales is a 79 y.o. Tristanian-speaking female with pertinent PMHx of Parkinsons, who presents to the clinic for their annual medicare wellness visit. Patient is new to me as PCP, as Dr. Devi left the practice in June. Parkinson - Upted CL to 1.5mg TID -- that is highest - Leg to walk they aren't operating - No tremors - Doesn't - Went to [facility] in [place] - He usually goes to [facility] - Plan to do that Tues and [...] 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[facility]-H[facility]) Nocturnal hypoxemia Obesity (BMI 30.0-34.9) MARCY on [...] Resource Strain: Low Risk (10/17/2023) Received from [facility] Overall Financial Resource Strain (CARDIA) Difficulty of Paying Living Expenses: Not hard at all Food Insecurity: No Food Insecurity (10/17/2023) Received from [facility] Hunger Vital Sign Worried About Running Out of Food in the Last Year: Never true Ran Out of Food in the Last Year: Never true Transportation Needs: No Transportation Needs (11/27/2023) OASIS A1250: Transportation Lack of Transportation (Medical): No Lack of Transportation (Non-Medical): No Patient Unable or Declines to Respond: No Stress: Stress Concern Present (10/28/2023) Received from [facility] Occupational [facility] - Occupational Stress Questionnaire Feeling of Stress : Rather much Social Connections: Feeling Socially Integrated (11/27/2023) OASIS D0700: Social Isolation Frequency of experiencing loneliness or isolation: Never Intimate Partner Violence: Patient Unable To Answer (10/15/2023) Received from [facility] Domestic Abuse Assessment Do you feel safe in your relationships at home?: Unable to assess Physical Abuse: Unable to assess Verbal Abuse: Unable to assess Housing Stability: Unknown (10/17/2023) Received from [facility] Housing Stability Vital Sign Unable to [...] provided personalized prevention plan. We discussed the [facility] Code Status and patient is: DNR Comfort Care Arrest at this time. Form can be found in media tab, patient has original with them. I recommended they hang the DNR form on the fridge or other place easy to see in their home or in their wallet. We discussed advanced care planning and end of life care. Patient provided blank copy of [facility] Advanced Directives packet, which includes HCPOA and Living Will Declaration. Patient's Advanced Directives are as follows: DNI/DNR Patient instructions with the written plan were provided to the patient. Advance Directives Discussion 16 - 20 minutes were spent discussing Advanced Care Planning (including a Living Will, Medical Power Of Sticker Machine Operator, as well as specific end of life [...] part of this note was constructed with [employer] dictation software. Leonardo Santos DO, MSEd [facility] Office: 09/17/2024 10:15 PM documented in this encounter [facility] Work Phone: 08-10-2024 History of Present illness Narrative Hematology/Oncology Office Visit Oncology History: 1) stage 1A left breast cancer, invasive ductal carcinoma grade 3. ER+ FL+ HER2+. cT1b N0 M0; pT1c N0 M0, diagnosed 01/28/23. - Patient is a 78 yo F who presented with an abnormal screening mammogram of the upper outer quadrant of the left breast on 11/27/22. Diagnostic imaging and ultrasound were performed on 01/21/2023: a 0.9 x 0.9 x 1 cm irregular mass in the left breast. 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 The patient underwent lumpectomy and sentinel node removal on 02/18/[address] Choi at [facility]: pathology revealed grade 3 invasive ductal carcinoma measuring 1.9 cm. There was focal DCIS and extensive lymphovascular invasion. Margins were negative for invasive and in situ component at greater than 2 mm. 6 axillary nodes were removed: 5 sentinel and 1 nonsentinel. All were negative. Pathologically staged T1CN0. - she was referred to [facility] for medical and radiation oncology. Her case [...] She had a bilateral screening mammogram at [facility] on 03/25/24 which was negative for malignancy. [...] apnea) The patient wears CPAP Parkinson disease ([facility]) Stroke ([facility]) 2009 Torn meniscus Uterine cancer ([facility]/H[facility]) (HCC) 2005 Past Surgical History: Procedure Laterality [...] calcifications on mammogram 07/24/2013 Cerebrovascular accident (CVA) ([facility]) 06/23/2009 Social History Tobacco Use Smoking status: [...] 3.6 - 5.1 mEq/L Final CHLORIDE - [facility] 09/23/2023 104 98 - 108 mEq/L Final CARBON DIOXIDE - [facility] 09/23/2023 27 18 - 33 mEq/L Final ANION GAP - [facility] 09/23/2023 9.00 -4.00 - 12.00 mmol/L Final UREA NITROGEN - [facility] 09/23/2023 19 7 - 22 mg/dL Final CREATININE - [facility] 09/23/2023 0.8 0.6 - 1.2 mg/dL Final GLUCOSE - [facility] 09/23/2023 133 (H) 73 - 118 mg/dL Final CALCIUM - [facility] 09/23/2023 9.3 8.0 - 10.3 mg/dL Final AST(SGOT) - [facility] 09/23/2023 29 11 - 38 U/L Final ALT - [facility] 09/23/2023 20 10 - 47 U/L Final ALKALINE PHOSPHATASE - [facility] 09/23/2023 83 42 - 141 U/L Final ALBUMIN - [facility] 09/23/2023 3.4 3.3 - 5.5 g/dL Final BILIRUBIN, TOTAL - [facility] 09/23/2023 0.7 0.2 - 1.6 mg/dL Final TOTAL PROTEIN - [facility] 09/23/2023 6.5 6.4 - 8.1 g/dL Final EGFR - [facility] 09/23/2023 76.0 >60.0 mL/min/1.73m*2 Final Imaging [...] tomosynthesis 1) stage 1A left breast cancer ER+/FL+/HER2+ pT1c pN0 cM0 s/p left partial mastectomy [...] DO Hematology/Medical Oncology documented in this encounter [facility] 08-02-2024 Telephone encounter Note Refill request received for anastrazole. Prescription pended. [facility] 08-02-2024 Miscellaneous Notes Refill request received for anastrazole. Prescription pended. documented in this encounter [facility] 03-16-2024 History of Present illness Narrative RADIATION ONCOLOGY FOLLOW UP PATIENT: Madiha Perales DATE OF SERVICE: 03/16/2024 : 1945 AGE: 79 y.o. PRIMARY SITE AND HISTOPATHOLOGY: Left breast, grade 3 invasive ductal carcinoma, ER positive, FL positive, HER2 positive. STAGE: cT1b N0 M0, [...] the left breast. Biopsy was performed at [facility] on 01/28/2023. This revealed grade 3 invasive ductal carcinoma measuring at least 8 mm in dimension. ER positive at 100%, FL positive at 70% and HER2 positive at [...] distance. She is undergoing physical therapy at [facility] physical therapy. She denies any breast issues. [...] apnea) The patient wears CPAP Parkinson disease ([facility]) Stroke ([facility]) 2009 Torn meniscus Uterine cancer (CMS/HCC) (HCC) [...] exam, patient counseling and care coordination. [facility] [facility] Department of Radiation Oncology is an Accredited Facility of the [employer] (ACR). This document was [...] provider for clarification. documented in this encounter [facility] 03-16-2024 Nurse Note The patient is here at [facility] with her for follow up with Dr. Diego. She arrived in a wheelchair. She uses a care or walker at times to ambulate around the house. She does physical therapy at [facility]. She denies pain at the current time. She denies skin issues at the previous site of radiation. Her appetite and sleeping are good. Her energy level is fair. She is taking Arimidex as prescribed. She is scheduled for her next mammogram in March of 2024. She continues to follow up with Dr. Choi and Dr. Escobedo. [facility] 03-16-2024 Nurse Note The patient is here at [facility] with her for follow up with Dr. Diego. She arrived in a wheelchair. She uses a care or walker at times to ambulate around the house. She does physical therapy at [facility]. She denies pain at the current time. She denies skin issues at the previous site of radiation. Her appetite and sleeping are good. Her energy level is fair. She is taking Arimidex as prescribed. She is scheduled for her next mammogram in March of 2024. She continues to follow up with Dr. Choi and Dr. Escobedo. documented in this encounter [facility] 02-19-2024 Note HNO ID: [id number] Author: TORRIE CHOI MD Service: ? Author [...] breast in female, estrogen receptor positive (HCC) [facility] Oncology Notes under scanned Documents INTERVAL [...] for today's visit: none Torrie Choi MD [facility] 02-19-2024 History of Present illness Narrative PROGRESS [...] breast in female, estrogen receptor positive (HCC) [facility] Oncology Notes under scanned Documents INTERVAL [...] Torrie Choi MD documented in this encounter [facility] 02-18-2024 History of Present illness Narrative Subjective [...] or grammatical errors documented in this encounter [facility] Work Phone: 02-04-2024 Telephone encounter Note Voice message left for patient re order Advised to call office if further questions or concerns. Number provided to call. Encounter closed. [facility] 02-04-2024 Miscellaneous Notes Voice message left for patient re order Advised to call office if further questions or concerns. Number provided to call. Encounter closed. Orders signed. Order placed per patient's request for mammogram and/or breast ultrasound. Routed to provider/MD to approve. Dr. Grubbs's office called to ask when patient needed scheduled for her next mamogram documented in this encounter [facility] 02-04-2024 Telephone encounter Note Orders signed. [facility] Work Phone: 02-03-2024 Telephone encounter Note Order placed per patient's request for mammogram and/or breast ultrasound. Routed to provider/MD to approve. [facility] 02-03-[address] Grubbs's office called to ask when patient needed scheduled for her next mamogram [facility] 02-03-2024 Telephone encounter Note Refill for Arimidex pended to be signed if agreeable. [facility] 02-03-2024 Miscellaneous Notes Refill for Arimidex pended to be signed if agreeable. documented in this encounter [facility] 02-03-2024 History of Present illness Narrative Hematology/Oncology Office Visit Oncology History: 1) stage 1A left breast cancer, invasive ductal carcinoma grade 3. ER+ FL+ HER2+. cT1b N0 M0; pT1c N0 M0, diagnosed 01/28/23. - Patient is a 78 yo F who presented with an abnormal screening mammogram of the upper outer quadrant of the left breast on 11/27/22. Diagnostic imaging and ultrasound were performed on 01/21/2023: a 0.9 x 0.9 x 1 cm irregular mass in the left breast. 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 The patient underwent lumpectomy and sentinel node removal on 02/18/[address] Choi at [facility]: pathology revealed grade 3 invasive ductal carcinoma measuring 1.9 cm. There was focal DCIS and extensive lymphovascular invasion. Margins were negative for invasive and in situ component at greater than 2 mm. 6 axillary nodes were removed: 5 sentinel and 1 nonsentinel. All were negative. Pathologically staged T1CN0. - she was referred to [facility] for medical and radiation oncology. Her [...] apnea) The patient wears CPAP Parkinson disease ([facility]) Stroke ([facility]) 2009 Torn meniscus Uterine cancer ([facility]/HCC) ([facility]) 2005 Past Surgical History: Procedure Laterality Date [...] left breast in female, estrogen receptor positive ([facility]) 03/18/2023 Edema of both lower extremities 02/05/2023 Parkinsonism 02/05/2023 Allergic reaction to bee sting 10/29/2022 Allergic rhinitis 10/29/2022 Eczema 10/29/2022 Eczema 10/29/2022 Elevated TSH 10/29/2022 External hemorrhoids 10/29/2022 Hair loss 10/29/2022 Low back pain 10/29/2022 Menopausal state 10/29/2022 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[facility]) 10/29/2022 Mixed anxiety depressive disorder 10/29/2022 Obesity (BMI 30.0-34.9) 10/29/2022 Obstructive sleep apnea syndrome 10/29/2022 Falling 10/29/2022 Seborrheic keratosis 10/29/2022 Rosacea, acne 10/15/2022 Hemangioma of skin and subcutaneous tissue 04/24/2016 Breast calcifications on mammogram 07/24/2013 Cerebrovascular accident (CVA) ([facility]) 06/23/2009 Social History Tobacco Use Smoking status: [...] 8.0 - 10.3 mg/dL Final AST(SGOT) - [facility] 09/23/2023 29 11 - 38 U/L [...] (HCC) 1) stage 1A left breast cancer ER+/FL+/HER2+ pT1c pN0 cM0 s/p left partial mastectomy [...] up with Dr. Choi for mammograms at [facility]. Call placed to her office today to [...] DO Hematology/Medical Oncology documented in this encounter [facility] 11-11-2023 History of Present illness Narrative [...] was improved enough to be discharged to [facility], where she got PT, OT, speech [...] or grammatical errors documented in this encounter [facility] Work Phone: 11-04-2023 History of Present illness Narrative Hematology/Oncology Office Visit Oncology History: 1) stage 1A left breast cancer, invasive ductal carcinoma grade 3. ER+ FL+ HER2+. cT1b N0 M0; pT1c N0 M0, diagnosed 01/28/23. - Patient is a 78 yo F who presented with an abnormal screening mammogram of the upper outer quadrant of the left breast on 11/27/22. Diagnostic imaging and ultrasound were performed on 01/21/2023: a 0.9 x 0.9 x 1 cm irregular mass in the left breast. 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 The patient underwent lumpectomy and sentinel node removal on 02/18/[address] Choi at [facility]: pathology revealed grade 3 invasive ductal carcinoma measuring 1.9 cm. There was focal DCIS and extensive lymphovascular invasion. Margins were negative for invasive and in situ component at greater than 2 mm. 6 axillary nodes were removed: 5 sentinel and 1 nonsentinel. All were negative. Pathologically staged T1CN0. - she was referred to [facility] for medical and radiation oncology. Her case [...] back pain Breast calcifications on mammogram Dementia ([facility]) Depression Eczema H/O colonoscopy Hemorrhoid Hx of rosacea Lower extremity edema MARCY (obstructive sleep apnea) The patient wears CPAP Parkinson disease ([facility]) Stroke ([facility]) 2009 Torn meniscus Uterine cancer ([facility]) ([facility]) 2005 Past Surgical History: Procedure Laterality Date [...] left breast in female, estrogen receptor positive ([facility]) 03/18/2023 Edema of both lower extremities 02/05/2023 [...] calcifications on mammogram 07/24/2013 Cerebrovascular accident (CVA) ([facility]) 06/23/2009 Social History Tobacco Use Smoking status: [...] (HCC) 1) stage 1A left breast cancer ER+/FL+/HER2+ pT1c pN0 cM0 s/p left partial mastectomy [...] up with Dr. Choi for mammograms at [facility] - signs and symptoms of breast cancer [...] DO Hematology/Medical Oncology documented in this encounter [facility] 10-06-2023 Telephone encounter Note Follow up call made to pt., no answer - LMOM. Will continue to monitor and follow. Lisa Watters MPA, RDN LD CDCES [facility] 10-06-2023 Miscellaneous Notes Follow up call made to pt., no answer - LMOM. Will continue to monitor and follow. Lisa Watters MPA, RDN LD CDCES documented in this encounter [facility] 09-23-2023 History of Present illness Narrative [...] prior to discharge. documented in this encounter [facility] 09-12-2023 History of Present illness Narrative RADIATION ONCOLOGY FOLLOW UP PATIENT: Madiha Peralse DATE OF SERVICE: 09/12/2023 : 1945 AGE: 78 y.o. PRIMARY SITE AND HISTOPATHOLOGY: Left breast, grade 3 invasive ductal carcinoma, ER positive, FL positive, HER2 positive. STAGE: cT1b N0 M0, [...] the left breast. Biopsy was performed at [facility] on 01/28/2023. This revealed grade 3 invasive ductal carcinoma measuring at least 8 mm in dimension. ER positive at 100%, FL positive at 70% and HER2 positive at [...] back pain Breast calcifications on mammogram Dementia ([facility]) Depression Eczema H/O colonoscopy Hemorrhoid Hx of rosacea Lower extremity edema MARCY (obstructive sleep apnea) The patient wears CPAP Parkinson disease Stroke ([facility]) 2009 Torn meniscus Uterine cancer (CMS/HCC) ([facility]) 2005 PAST SURGICAL HISTORY: Past Surgical History: [...] in 6 months. Vicki Diego MD [facility] Department of Radiation Oncology is an Accredited Facility of the [employer] (ACR). This document was [...] provider for clarification. documented in this encounter [facility] 09-12-2023 Nurse Note Here with using walker for follow up.Appetite good states she just doesn't drink enough water. Energy normal for her rests frequently. States skin is doing well and continues to moisturize with aloe and coconut oil. Recent bone density test done. Has echo coming up and continues on Trazimera every 3 weeks. [facility] 09-12-2023 Nurse Note Here with using walker for follow up.Appetite good states she just doesn't drink enough water. Energy normal for her rests frequently. States skin is doing well and continues to moisturize with aloe and coconut oil. Recent bone density test done. Has echo coming up and continues on Trazimera every 3 weeks. documented in this encounter [facility] 09-02-2023 History of Present illness Narrative [...] ambulatory upon discharge. documented in this encounter [facility] 09-02-2023 History of Present illness Narrative [...] ambulatory upon discharge. documented in this encounter [facility] 09-02-2023 History of Present illness Narrative Hematology/Oncology Office Visit Oncology History: 1) stage 1A left breast cancer, invasive ductal carcinoma grade 3. ER+ FL+ HER2+. cT1b N0 M0; pT1c N0 M0, diagnosed 01/28/23. - Patient is a 78 yo F who presented with an abnormal screening mammogram of the upper outer quadrant of the left breast on 11/27/22. Diagnostic imaging and ultrasound were performed on 01/21/2023: a 0.9 x 0.9 x 1 cm irregular mass in the left breast. 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 The patient underwent lumpectomy and sentinel node removal on 02/18/[address] Choi at [facility]: pathology revealed grade 3 invasive ductal carcinoma measuring 1.9 cm. There was focal DCIS and extensive lymphovascular invasion. Margins were negative for invasive and in situ component at greater than 2 mm. 6 axillary nodes were removed: 5 sentinel and 1 nonsentinel. All were negative. Pathologically staged T1CN0. - she was referred to [facility] for medical and radiation oncology. Her case [...] breast in female, estrogen receptor positive (HCC) ([facility]) 03/18/2023 Edema of both lower extremities 02/05/2023 Parkinsonism 02/05/2023 Allergic reaction to bee sting 10/29/2022 Allergic rhinitis 10/29/2022 Eczema 10/29/2022 Eczema 10/29/2022 Elevated TSH 10/29/2022 External hemorrhoids 10/29/2022 Hair loss 10/29/2022 Low back pain 10/29/2022 Menopausal state 10/29/2022 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[facility]) 10/29/2022 Mixed anxiety depressive disorder 10/29/2022 Obesity (BMI 30.0-34.9) 10/29/2022 Obstructive sleep apnea syndrome 10/29/2022 Falling 10/29/2022 Seborrheic keratosis 10/29/2022 Rosacea, acne 10/15/2022 Hemangioma of skin and subcutaneous tissue 04/24/2016 Breast calcifications on mammogram 07/24/2013 Cerebrovascular accident (CVA) ([facility]) 06/23/2009 Social History Tobacco Use Smoking status: [...] Narrative: Patient Name: MADIHA PERALES : 1945 [facility]#: [id number] Exam Date/Time: 07/03/2023 11:37 Procedure: CT SIMULATION WO CONTRAST - RADIATION ONCOLOGY Ordering Provider: DIEGO DESIREE Reason For Exam: BREAST CARCINOMA CT simulation therapy /CT chest INDICATION: Breast carcinoma. Technique: Large [id number] 3 mm axial sections were obtained through [...] therapy 1) stage 1A left breast cancer ER+/FL+/HER2+ pT1c pN0 cM0 s/p left partial mastectomy [...] Escobedo, Hematology/Medical Oncology documented in this encounter [facility] 08-12-2023 History of Present illness Narrative Patient arrived for delayed cycle 4 Q 3 week Trazimera. Patient still has cough on ATB. Reports feels well. Encouraged to call PCP to follow up with cough. PIV inserted, blood for CBC and CMP obtained. Infusion complete. PIV d/c'd angio cath intact. Patient ambulatory upon discharge. documented in this encounter [facility] 08-12-2023 History of Present illness Narrative Patient arrived for delayed cycle 4 Q 3 week Trazimera. Patient still has cough on ATB. Reports feels well. Encouraged to call PCP to follow up with cough. PIV inserted, blood for CBC and CMP obtained. Infusion complete. PIV d/c'd angio cath intact. Patient ambulatory upon discharge. documented in this encounter [facility] 08-05-2023 History of Present illness Narrative [...] seen by PCP. documented in this encounter [facility] 07-30-2023 History of Present illness Narrative [...] or grammatical errorspending documented in this encounter [facility] Work Phone: 07-29-2023 Telephone encounter Note ECHO for August pended to be signed [facility] 07-29-2023 Miscellaneous Notes ECHO for August pended to be signed documented in this encounter [facility] 07-15-2023 History of Present illness Narrative [...] assist to exit. documented in this encounter [facility] 07-15-2023 History of Present illness Narrative [...] assist to exit. documented in this encounter [facility] 07-15-2023 History of Present illness Narrative Hematology/Oncology Office Visit Oncology History: 1) stage 1A left breast cancer, invasive ductal carcinoma grade 3. ER+ FL+ HER2+. cT1b N0 M0; pT1c N0 M0, diagnosed 01/28/23. - Patient is a 78 yo F who presented with an abnormal screening mammogram of the upper outer quadrant of the left breast on 11/27/22. Diagnostic imaging and ultrasound were performed on 01/21/2023: a 0.9 x 0.9 x 1 cm irregular mass in the left breast. 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 The patient underwent lumpectomy and sentinel node removal on 02/18/[address] Choi at [facility]: pathology revealed grade 3 invasive ductal carcinoma measuring 1.9 cm. There was focal DCIS and extensive lymphovascular invasion. Margins were negative for invasive and in situ component at greater than 2 mm. 6 axillary nodes were removed: 5 sentinel and 1 nonsentinel. All were negative. Pathologically staged T1CN0. - she was referred to [facility] for medical and radiation oncology. Her case [...] continued. - radiation started 07/14/23 HPI: Madiha Peraels is a 78 y.o. female who comes [...] back pain Breast calcifications on mammogram Dementia ([facility]) Depression Eczema H/O colonoscopy Hemorrhoid Hx of rosacea Lower extremity edema MARCY (obstructive sleep apnea) The patient wears CPAP Parkinson disease Stroke ([facility]) 2009 Torn meniscus Uterine cancer ([facility]/HCC) ([facility]) 2005 Past Surgical History: Procedure Laterality Date [...] left breast in female, estrogen receptor positive ([facility]) ([facility]) 03/18/2023 Edema of both lower extremities 02/05/2023 [...] calcifications on mammogram 07/24/2013 Cerebrovascular accident (CVA) ([facility]) 06/23/2009 Social History Tobacco Use Smoking status: [...] Narrative: [facility] Name[facility] 1945 [id number] Exam Date/Time: 07/03/2023 11:37 Procedure: CT SIMULATION WO CONTRAST - RADIATION ONCOLOGY Ordering Provider: DIEGO DESIREE Reason For Exam: BREAST CARCINOMA CT simulation therapy /CT chest INDICATION: Breast carcinoma. Technique: Large nddis-on-lofo 3 mm axial sections were obtained through [...] (HCC) 1) stage 1A left breast cancer ER+/FL+/HER2+ pT1c pN0 cM0 s/p left partial mastectomy [...] DO Hematology/Medical Oncology documented in this encounter [facility] 07-14-2023 Telephone encounter Note Reached out to patient's daughter on this date by phone to check-in, assess needs, and offer support. Left voicemail requesting return call. [facility] 07-14-2023 Miscellaneous Notes Reached out to patient's daughter on this date by phone to check-in, assess needs, and offer support. Left voicemail requesting return call. documented in this encounter [facility] 07-03-2023 History of Present illness Narrative RADIATION ONCOLOGY FOLLOW UP PATIENT: Madiha Perales DATE OF SERVICE: 07/03/2023 : 1945 AGE: 78 y.o. PRIMARY SITE AND HISTOPATHOLOGY: Left breast, grade 3 invasive ductal carcinoma, ER positive, FL positive, HER2 positive. STAGE: cT1b N0 M0, [...] the left breast. Biopsy was performed at [facility] on 01/28/2023. This revealed grade 3 invasive ductal carcinoma measuring at least 8 mm in dimension. ER positive at 100%, FL positive at 70% and HER2 positive at [...] to side effects. She required admission to [facility] on 06/05/2023 through 06/08/2023 for symptom control. [...] back pain Breast calcifications on mammogram Dementia ([facility]) Depression Eczema H/O colonoscopy Hemorrhoid Hx of rosacea Lower extremity edema MARCY (obstructive sleep apnea) The patient wears CPAP Parkinson disease Stroke ([facility]) 2009 Torn meniscus Uterine cancer ([facility]/HCC) ([facility]) 2005 PAST SURGICAL HISTORY: Past Surgical History: [...] weeks of therapy. Vicki Diego MD [facility] Department of Radiation Oncology is an Accredited Facility of the [employer] (ACR). Total time: 35 [...] provider for clarification. documented in this encounter [facility] 07-03-2023 Nurse Note The patient is here at [facility] with her and daughter for follow up with Dr. Diego. She denies pain at the current time. She states her appetite and sleeping are WNL. He states she has low energy. She is on Trastuzumab every 3 weeks under the care of Dr. Escobedo. [facility] 07-03-2023 Nurse Note The patient signed consent and the RN signed as a witness. The RN gave and reviewed skin care teaching with the patient. The patient verbalized understanding. [facility] 07-03-2023 Nurse Note The patient is here at [facility] with her and daughter for follow up [...] patient verbalized understanding. documented in this encounter [facility] 06-26-2023 History of Present illness Narrative Subjective Patient ID: Madiha Perales is a 78 y.o. female who presents for Hospital Follow-up (Was at [facility] [place] not responsive could not even stand, [...] or grammatical errors documented in this encounter [facility] Work Phone: 06-24-2023 History of Present illness Narrative Hematology/Oncology Office Visit Oncology History: 1) stage 1A left breast cancer, invasive ductal carcinoma grade 3. ER+ FL+ HER2+. cT1b N0 M0; pT1c N0 M0, diagnosed 01/28/23. - Patient is a 78 yo F who presented with an abnormal screening mammogram of the upper outer quadrant of the left breast on 11/27/22. Diagnostic imaging and ultrasound were performed on 01/21/2023: a 0.9 x 0.9 x 1 cm irregular mass in the left breast. 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 The patient underwent lumpectomy and sentinel node removal on 02/18/[address] Choi at [facility]: pathology revealed grade 3 invasive ductal carcinoma [...] The patient wears CPAP Parkinson disease Stroke ([facility]) 2009 Torn meniscus Uterine cancer (CMS/HCC) (HCC) [...] (HCC) 1) stage 1A left breast cancer ER+/FL+/HER2+ pT1c pN0 cM0 s/p left partial mastectomy [...] DO Hematology/Medical Oncology documented in this encounter [facility] 06-24-2023 History of Present illness Narrative [...] ambulatory upon discharge. documented in this encounter [facility] 06-24-2023 History of Present illness Narrative [...] ambulatory upon discharge. documented in this encounter [facility] 06-13-2023 History of Present illness Narrative Arrival Note Infusion Patient is here for hydration Labs were not ordered. 1013 Infusion completed and flushed with NS. No IV related complications. No s/sx rx, pt voices no c/o. Pt verbalizes understanding of s/sx adverse reaction or complication to report to MD office when at home. documented in this encounter [facility] 06-13-2023 Telephone encounter Note Patient accepted and confirmed home health start of care (SOC) for 06/12/23. Visit time established. [facility] Work Phone: 06-13-2023 Miscellaneous Notes Patient accepted and confirmed home health start of care (SOC) for 06/12/23. Visit time established. documented in this encounter [facility] 06-12-2023 Telephone encounter Note Received return message [...] and will reach out if needs/questions arise. [facility] 06-12-2023 Miscellaneous Notes Received return message [...] if needs/questions arise. documented in this encounter [facility] 06-12-2023 Telephone encounter Note Reached out to rodney's daughter/Wesley on this date via phone to check-in and offer support. No answer. Left voicemail requesting return call. [facility] 06-12-2023 Miscellaneous Notes Reached out to rodney's daughter/Wesley on this date via phone to check-in and offer support. No answer. Left voicemail requesting return call. documented in this encounter [facility] 06-11-2023 Telephone encounter Note Follow up phone call made to pt's daughter - no answer. LMOM for pt. To return call. Continue to monitor. Lisa Watters MPA, RDN LD CDCES [facility] 06-11-2023 Miscellaneous Notes Follow up phone call made to pt's daughter - no answer. LMOM for pt. To return call. Continue to monitor. Lisa Watters MPA, RDN LD CDCES documented in this encounter [facility] 06-09-2023 Miscellaneous Notes Standing lab orders to be drawn prior to oncology infusions are pended. documented in this encounter [facility] 06-09-2023 Telephone encounter Note Standing lab orders to be drawn prior to oncology infusions are pended. [facility] 06-04-2023 Telephone encounter Note Received a [...] for patient. This worker provided education on [facility] on Aging services and supports. Also provided education on [facility]. Wesley states the family has an agency they have gone through to get assistance for other family members that they may look into using again. This worker e-mailed Wesley a list of private pay home health agencies to [email or web address]. This worker also made a referral to [facility] home delivered meal program on patient's behalf. Spoke with Suzanne at [facility] and she said she will contact Wesley regarding their meal program. Wesley has this worker's contact information in case additional needs arise. This worker will continue to follow-up. [facility] 06-04-2023 Miscellaneous Notes Received a return [...] for patient. This worker provided education on [facility] on Aging services and supports. Also provided education on [facility]. Wesley states the family has an agency they have gone through to get assistance for other family members that they may look into using again. This worker e-mailed Wesley a list of private pay home health agencies to [email or web address]. This worker also made a referral to [facility] home delivered meal program on patient's behalf. Spoke with Suzanne at [facility] and she said she will contact Wesley regarding their meal program. Wesley has this worker's contact information in case additional needs arise. This worker will continue to follow-up. documented in this encounter [facility] 06-03-2023 Telephone encounter Note Received referral from Cathy Quiñones RN to connect with patient's family regarding options for increased help at home. Reached out to patient's daughter/Wesley on this date via phone. No answer. Left voicemail requesting return call. [facility] 06-03-2023 Miscellaneous Notes Received referral from Cathy Quiñones RN to connect with patient's family regarding options for increased help at home. Reached out to patient's daughter/Wesley on this date via phone. No answer. Left voicemail requesting return call. documented in this encounter [facility] 06-03-2023 Telephone encounter Note Venous duplex pended to be signed [facility] 06-03-2023 Miscellaneous Notes Venous duplex pended to be signed documented in this encounter [facility] 06-03-2023 History of Present illness Narrative Hematology/Oncology Office Visit Oncology History: 1) stage 1A left breast cancer, invasive ductal carcinoma grade 3. ER+ FL+ HER2+. cT1b N0 M0; pT1c N0 M0, diagnosed 01/28/23. - Patient is a 78 yo F who presented with an abnormal screening mammogram of the upper outer quadrant of the left breast on 11/27/22. Diagnostic imaging and ultrasound were performed on 01/21/2023: a 0.9 x 0.9 x 1 cm irregular mass in the left breast. 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 The patient underwent lumpectomy and sentinel node removal on 02/18/[address] Choi at [facility]: pathology revealed grade 3 invasive ductal carcinoma measuring 1.9 cm. There was focal DCIS and extensive lymphovascular invasion. Margins were negative for invasive and in situ component at greater than 2 mm. 6 axillary nodes were removed: 5 sentinel and 1 nonsentinel. All were negative. Pathologically staged T1CN0. - she was referred to [facility] for medical and radiation oncology. Her case [...] back pain Breast calcifications on mammogram Dementia ([facility]) Depression Eczema H/O colonoscopy Hemorrhoid Hx of rosacea Lower extremity edema MARCY (obstructive sleep apnea) The patient wears CPAP Parkinson disease Stroke ([facility]) 2009 Torn meniscus Uterine cancer ([facility]/HCC) ([facility]) 2005 Past Surgical History: Procedure Laterality Date [...] left breast in female, estrogen receptor positive ([facility]) 03/18/2023 Edema of both lower extremities 02/05/2023 [...] calcifications on mammogram 07/24/2013 Cerebrovascular accident (CVA) ([facility]) 06/23/2009 Social History Tobacco Use Smoking status: [...] therapy 1) stage 1A left breast cancer ER+/FL+/HER2+ pT1c pN0 cM0 s/p left partial mastectomy [...] DO Hematology/Medical Oncology documented in this encounter [facility] 06-03-2023 History of Present illness Narrative [...] at this time. Staff message sent to [employer] and scale assembly set up worker for additional resources and possible in [...] for venous duplex. documented in this encounter [facility] 05-27-2023 History of Present illness Narrative Patient [...] at this time. documented in this encounter [facility] 05-27-2023 Telephone encounter Note At check-in patient stated that insurance will remain the same in the upcoming year. [employer] 05.27.23 ES [facility] 05-27-2023 Miscellaneous Notes At check-in patient stated that insurance will remain the same in the upcoming year. [employer] 05.27.23 ES documented in this encounter [facility] 05-23-2023 History of Present illness Narrative Patient [...] at this time documented in this encounter [facility] 05-20-2023 History of Present illness Narrative Hematology/Oncology Office Visit Oncology History: 1) stage 1A left breast cancer, invasive ductal carcinoma grade 3. ER+ FL+ HER2+. cT1b N0 M0; pT1c N0 M0, diagnosed 01/28/23. - Patient is a 78 yo F who presented with an abnormal screening mammogram of the upper outer quadrant of the left breast on 11/27/22. Diagnostic imaging and ultrasound were performed on 01/21/2023: a 0.9 x 0.9 x 1 cm irregular mass in the left breast. 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 The patient underwent lumpectomy and sentinel node removal on 02/18/[address] Choi at [facility]: pathology revealed grade 3 invasive ductal carcinoma measuring 1.9 cm. There was focal DCIS and extensive lymphovascular invasion. Margins were negative for invasive and in situ component at greater than 2 mm. 6 axillary nodes were removed: 5 sentinel and 1 nonsentinel. All were negative. Pathologically staged T1CN0. - she was referred to [facility] for medical and radiation oncology. Her case [...] back pain Breast calcifications on mammogram Dementia ([facility]) Depression Eczema H/O colonoscopy Hemorrhoid Hx of rosacea Lower extremity edema MARCY (obstructive sleep apnea) The patient wears CPAP Parkinson disease Stroke ([facility]) 2009 Torn meniscus Uterine cancer ([facility]/HCC) ([facility]) 2005 Past Surgical History: Procedure Laterality Date [...] left breast in female, estrogen receptor positive ([facility]) 03/18/2023 Edema of both lower extremities 02/05/2023 [...] calcifications on mammogram 07/24/2013 Cerebrovascular accident (CVA) ([facility]) 06/23/2009 Social History Tobacco Use Smoking status: [...] (HCC) 1) stage 1A left breast cancer ER+/FL+/HER2+ pT1c pN0 cM0 s/p left partial mastectomy [...] DO Hematology/Medical Oncology documented in this encounter [facility] 05-20-2023 History of Present illness Narrative [...] ambulatory upon discharge. documented in this encounter [facility] 05-13-2023 History of Present illness Narrative [...] ambulatory upon discharge. documented in this encounter [facility] 05-12-2023 Telephone encounter Note ECHO for Jun 2023 pended to be signed [facility] 05-12-2023 Miscellaneous Notes ECHO for Jun 2023 pended to be signed documented in this encounter [facility] 05-06-2023 History of Present illness Narrative Hematology/Oncology Office Visit Oncology History: 1) stage 1A left breast cancer, invasive ductal carcinoma grade 3. ER+ FL+ HER2+. cT1b N0 M0; pT1c N0 M0, diagnosed 01/28/23. - Patient is a 78 yo F who presented with an abnormal screening mammogram of the upper outer quadrant of the left breast on 11/27/22. Diagnostic imaging and ultrasound were performed on 01/21/2023: a 0.9 x 0.9 x 1 cm irregular mass in the left breast. 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 The patient underwent lumpectomy and sentinel node removal on 02/18/[address] Choi at [facility]: pathology revealed grade 3 invasive ductal carcinoma measuring 1.9 cm. There was focal DCIS and extensive lymphovascular invasion. Margins were negative for invasive and in situ component at greater than 2 mm. 6 axillary nodes were removed: 5 sentinel and 1 nonsentinel. All were negative. Pathologically staged T1CN0. - she was referred to [facility] for medical and radiation oncology. Her case [...] back pain Breast calcifications on mammogram Dementia ([facility]) Depression Eczema H/O colonoscopy Hemorrhoid Hx of rosacea Lower extremity edema MARCY (obstructive sleep apnea) The patient wears CPAP Parkinson disease Stroke ([facility]) 2009 Torn meniscus Uterine cancer ([facility]/HCC) ([facility]) 2005 Past Surgical History: Procedure Laterality Date [...] left breast in female, estrogen receptor positive ([facility]) 03/18/2023 Edema of both lower extremities 02/05/2023 [...] calcifications on mammogram 07/24/2013 Cerebrovascular accident (CVA) ([facility]) 06/23/2009 Social History Tobacco Use Smoking status: [...] (HCC) 1) stage 1A left breast cancer ER+/FL+/HER2+ pT1c pN0 cM0 s/p left partial mastectomy [...] DO Hematology/Medical Oncology documented in this encounter [facility] 05-06-2023 History of Present illness Narrative [...] of next appt. documented in this encounter [facility] 04-29-2023 History of Present illness Narrative [...] provided to patient. documented in this encounter [facility] 04-22-2023 History of Present illness Narrative Hematology/Oncology Office Visit Oncology History: 1) stage 1A left breast cancer, invasive ductal carcinoma grade 3. ER+ FL+ HER2+. cT1b N0 M0; pT1c N0 M0, diagnosed 01/28/23. - Patient is a 78 yo F who presented with an abnormal screening mammogram of the upper outer quadrant of the left breast on 11/27/22. Diagnostic imaging and ultrasound were performed on 01/21/2023: a 0.9 x 0.9 x 1 cm irregular mass in the left breast. 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 The patient underwent lumpectomy and sentinel node removal on 02/18/[address] Choi at [facility]: pathology revealed grade 3 invasive ductal carcinoma measuring 1.9 cm. There was focal DCIS and extensive lymphovascular invasion. Margins were negative for invasive and in situ component at greater than 2 mm. 6 axillary nodes were removed: 5 sentinel and 1 nonsentinel. All were negative. Pathologically staged T1CN0. - she was referred to [facility] for medical and radiation oncology. Her case [...] back pain Breast calcifications on mammogram Dementia ([facility]) Depression Eczema H/O colonoscopy Hemorrhoid Hx of rosacea Lower extremity edema MARCY (obstructive sleep apnea) The patient wears CPAP Parkinson disease Stroke ([facility]) 2009 Torn meniscus Uterine cancer ([facility]/HCC) ([facility]) 2005 Past Surgical History: Procedure Laterality Date [...] left breast in female, estrogen receptor positive ([facility]) 03/18/2023 Edema of both lower extremities 02/05/2023 [...] calcifications on mammogram 07/24/2013 Cerebrovascular accident (CVA) ([facility]) 06/23/2009 Social History Tobacco Use Smoking status: [...] (HCC) 1) stage 1A left breast cancer ER+/FL+/HER2+ pT1c pN0 cM0 s/p left partial mastectomy [...] DO Hematology/Medical Oncology documented in this encounter [facility] 04-22-2023 History of Present illness Narrative [...] ambulatory upon discharge. documented in this encounter [facility] 04-08-2023 History of Present illness Narrative Hematology/Oncology Office Visit Oncology History: 1) stage 1A left breast cancer, invasive ductal carcinoma grade 3. ER+ FL+ HER2+. cT1b N0 M0; pT1c N0 M0, diagnosed 01/28/23. - Patient is a 78 yo F who presented with an abnormal screening mammogram of the upper outer quadrant of the left breast on 11/27/22. Diagnostic imaging and ultrasound were performed on 01/21/2023: a 0.9 x 0.9 x 1 cm irregular mass in the left breast. 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 The patient underwent lumpectomy and sentinel node removal on 02/18/[address] Choi at [facility]: pathology revealed grade 3 invasive ductal carcinoma measuring 1.9 cm. There was focal DCIS and extensive lymphovascular invasion. Margins were negative for invasive and in situ component at greater than 2 mm. 6 axillary nodes were removed: 5 sentinel and 1 nonsentinel. All were negative. Pathologically staged T1CN0. - she was referred to [facility] for medical and radiation oncology. Her case was reviewed at our tumor board and adjuvant chemotherapy, radiation, and AI therapy were recommended. She started weekly taxol and herceptin on 04/01/23. HPI: Madhia Perales is a 78 y.o. female who [...] The patient wears CPAP Parkinson disease Stroke ([facility]) 2009 Torn meniscus Uterine cancer ([facility]/H[facility]) ([facility]) 2005 Past Surgical History: Procedure Laterality Date [...] left breast in female, estrogen receptor positive ([facility]) 03/18/2023 Edema of both lower extremities 02/05/2023 Parkinsonism 02/05/2023 Allergic reaction to bee sting 10/29/2022 Allergic rhinitis 10/29/2022 Eczema 10/29/2022 Eczema 10/29/2022 Elevated TSH 10/29/2022 External hemorrhoids 10/29/2022 Hair loss 10/29/2022 Low back pain 10/29/2022 Menopausal state 10/29/2022 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[facility]) 10/29/2022 Mixed anxiety depressive disorder 10/29/2022 Obesity (BMI 30.0-34.9) 10/29/2022 Obstructive sleep apnea syndrome 10/29/2022 Falling 10/29/2022 Seborrheic keratosis 10/29/2022 Rosacea, acne 10/15/2022 Hemangioma of skin and subcutaneous tissue 04/24/2016 Breast calcifications on mammogram 07/24/2013 Cerebrovascular accident (CVA) ([facility]) 06/23/2009 Social History Tobacco Use Smoking status: [...] Case Report 03/14/2023 Final Value:Surgical Pathology Case: [id number] Authorizing Provider: Vicki Diego MD Collected: 03/14/2023 1008 Ordering Location: [facility] Laboratory Received: 03/14/2023 0812 Pathologist: Fozia Ponce [...] be displayed here. Pathologist Interpretation Location 03/14/2023 [facility], [address] [place] [id number], CLIA: [id number]; Joint Commission: [id number]; CAP: [id number] Final Imaging Reviewed: as per HPI - I have reviewed all available pertinent laboratory, imaging and pathology results with the patient and/or family members today. Assessment/Plan: Diagnosis Plan 1. Malignant neoplasm of upper-outer quadrant of left breast in female, estrogen receptor positive (HCC) 1) stage 1A left breast cancer ER+/FL+/HER2+ pT1c pN0 cM0 s/p left partial mastectomy [...] DO Hematology/Medical Oncology documented in this encounter [facility] 04-08-2023 History of Present illness Narrative Patient [...] of next appt. documented in this encounter [facility] 04-08-2023 History of Present illness Narrative Patient [...] of next appt. documented in this encounter [facility] 04-01-2023 History of Present illness Narrative Patient [...] ambulatory upon discharge. documented in this encounter [facility] 03-31-2023 History of Present illness Narrative Chemotherapy teaching completed with patient and , daughter, [id number], and son for Paclitaxel, and Trazimera. Written [...] access: PIV. Patient will get treatment in [place]. Reviewed role of multidisciplinary team: social work, mortgage loan underwriter, financial systems manager. Patient agreeable to proceed with treatment and signed consent form. Copy of consent form given to patient. Advised patient of appointment information and treatment calendar given. documented in this encounter [facility] 03-24-2023 Telephone encounter Note Standing orders for pre chemo labs are pended. Prescriptions for antiemetics and decadron prep prior to first treatment are pended. [facility] 03-24-2023 Miscellaneous Notes Standing orders for pre chemo labs are pended. Prescriptions for antiemetics and decadron prep prior to first treatment are pended. documented in this encounter [facility] 03-18-2023 History of Present illness Narrative New Patient Hematology/Oncology Office Visit Consultation/Referral Reason: breast cancer Referred by: Dr. Diego Oncology History: 1) stage 1A left breast cancer, invasive ductal carcinoma grade 3. ER+ FL+ HER2+. cT1b N0 M0; pT1c N0 M0, diagnosed 01/28/23. - Patient is a 78 yo F who presented with an abnormal screening mammogram of the upper outer quadrant of the left breast on 11/27/22. Diagnostic imaging and ultrasound were performed on 01/21/2023: a 0.9 x 0.9 x 1 cm irregular mass in the left breast. 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 The patient underwent lumpectomy and sentinel node removal on 02/18/[address] Choi at [facility]: pathology revealed grade 3 invasive ductal carcinoma measuring 1.9 cm. There was focal DCIS and extensive lymphovascular invasion. Margins were negative for invasive and in situ component at greater than 2 mm. 6 axillary nodes were removed: 5 sentinel and 1 nonsentinel. All were negative. Pathologically staged T1CN0. - she was referred to [facility] for medical and radiation oncology. Her case [...] calcifications on mammogram 07/24/2013 Cerebrovascular accident (CVA) ([facility]) 06/23/2009 Social History Tobacco Use Smoking status: [...] Case Report 03/14/2023 Final Value:Surgical Pathology Case: [id number] Authorizing Provider: Vicki Diego MD Collected: 03/14/2023 1008 Ordering Location: [facility] Laboratory Received: 03/14/2023 0812 Pathologist: Fozia Ponce [...] be displayed here. Pathologist Interpretation Location 03/14/2023 [facility], [address] [place] [address], CLIA: [id number]; Joint Commission: [id number]; CAP: [id number] Final Imaging Reviewed: as per HPI - [...] PRN 1) stage 1A left breast cancer ER+/FL+/HER2+ pT1c pN0 cM0 s/p left partial mastectomy [...] DO Hematology/Medical Oncology documented in this encounter [facility] 03-06-2023 Consult note Formatting of th is note is different from the original. RADIATION ONCOLOGY INITIAL CONSULTATION PATIENT: Madiha Perales DATE OF SERVICE: 03/06/23 : 1945 AGE: 78 y.o. PRIMARY SITE AND HISTOPATHOLOGY: Left breast, grade 3 invasive ductal carcinoma, ER positive, FL positive, HER2 positive. STAGE: cT1b N0 M0, [...] the left breast. Biopsy was performed at [facility] on 01/28/2023. This revealed grade 3 invasive ductal carcinoma measuring at least 8 mm in dimension. ER positive at 100%, FL positive at 70% and HER2 positive at [...] back pain Breast calcifications on mammogram Dementia ([facility]) Depression Eczema H/O colonoscopy Hemorrhoid Hx of rosacea Lower extremity edema MARCY (obstructive sleep apnea) The patient wears CPAP Parkinson disease ([facility]) Stroke ([facility]) 2009 Torn meniscus Uterine cancer ([facility]) ([facility]) 2005 PAST SURGICAL HISTORY: Past Surgical History: [...] the first planning session is at the [facility] and the rest of the appointments would be at the [facility]. We thank you for the consultation. Vicki Diego MD [facility] Department of Radiation Oncology is an Accredited Facility of the [employer] (A[employer]). Total time: 65 [...] directly addressed to the provider for clarification. [facility] 03-06-2023 Consult note Formatting of th is note is different from the original. RADIATION ONCOLOGY INITIAL CONSULTATION PATIENT: Madiha Perales DATE OF SERVICE: 03/06/23 : 1945 AGE: 78 y.o. PRIMARY SITE AND HISTOPATHOLOGY: Left breast, grade 3 invasive ductal carcinoma, ER positive, FL positive, HER2 positive. STAGE: cT1b N0 M0, [...] the left breast. Biopsy was performed at [facility] on 01/28/2023. This revealed grade 3 invasive ductal carcinoma measuring at least 8 mm in dimension. ER positive at 100%, FL positive at 70% and HER2 positive at [...] the first planning session is at the [facility] and the rest of the appointments would be at the [facility]. We thank you for the consultation. Vicki Diego MD [facility] Department of Radiation Oncology is an Accredited Facility of the [employer] (ACR). Total time: 65 [...] provider for clarification. documented in this encounter [facility] 03-06-2023 Nurse Note The patient is here with her at [facility] for a new consult with Dr. Diego. The patient states she has a history of Uterine cancer and she had a total hysterectomy. The patient had a left breast lumpectomy with Dr. Chio on 02/18/23. She states she is healing [...] patient resource guide. The patient verbalized understanding. [facility] 03-06-2023 Nurse Note The patient is here with her at [facility] for a new consult with Dr. Diego. [...] patient verbalized understanding. documented in this encounter [facility] 02-27-2023 History of Present illness Narrative [...] family would like to be seen at [facility]. Referral has been sent. She can return to see me in 6 months to assess her progress. Office Visit on 02/27/23 CONSULT TO ONCOLOGY RAD/ONC CONSULT Torrie Choi MD documented in this encounter [facility] 02-26-2023 Miscellaneous Notes Patient daughter wesley called [...] doesn't she pathology for the tumor??? Wesley [phone] documented in this encounter [facility] 02-12-2023 History of Present illness Narrative Subjective [...] has not fallen. While being evaluated at [facility] preadmission testing for upcoming breast cancer surgery, [...] or grammatical errors documented in this encounter [facility] Work Phone: 02-10-2023 History of Present illness Narrative I have reviewed the EMANUEL localization request for Dr. Choi. Left breast: 3:00 posterior depth, invasive ductal carcinoma, HydroMARK butterfly clip, EMANUEL localization. Images marked are dated 01/28/2023. This is a nonbillable encounter. documented in this encounter [facility] 02-06-2023 Miscellaneous Notes Spoke with patient and [...] Follow up with PCP Call taken by scheduler maintenance today: Patient daughter called about some concerns PACC appt PA notice patients feet were swollen. Patient doesn't wear cpmpression socks. Should they attempt to get some before the surgery and can you place an order for these? Call Alicia or stevie [phone] or Christiano her [phone] Please see previous note from 02/05/23 Breast [...] is scheduled on 02/18. Please call at [phone] Thank You documented in this encounter [facility] 02-06-2023 Miscellaneous Notes Please see encounter from 02/05/23. This encounter closed. Patient daughter called about some concerns PACC appt PA notice patients feet were swollen. Patient doesn't wear cpmpression socks. Should they attempt to get some before the surgery and can you place an order for these? Call Alicia or stevie [phone] or Christiano her [phone] documented in this encounter [facility] 02-04-2023 History and physical note HISTORY AND [...] manage symptoms. Procedure scheduled on 02/18/2023 at [facility]. REVIEW OF SYSTEMS: General: No weight loss, [...] or any previous visit (from the past 44786 hour(s)). Assessment Patient has the following medical [...] amyloid angiopathy, the rebleeding risk in the care home is probably in the range of ~5% [...] TO PENICILLIN [facility]ERGY Scheduling Instructions: Please call [phone] to set up an urgent consult. Multivitamin capsule Sig: Take 1 capsule by mouth once daily. Instructions Given to Patient: Instructions located in the after visit summary. Patient given verbal and written preop instructions and voices comprehension and compliance. SIGNATURE: Jolly Dooley PA-C PATIENT NAME: Madiha Perales DATE: February 05, 2023 TIME: 11:21 AM PAGER/CONTACT #: documented in this encounter [facility] 02-04-2023 Instructions Jolly Dooley PA-C - 02/04/2023 11:05 AM EDT Images from the original note were not included. PATIENT PREOPERATIVE INSTRUCTIONS Torrie Choi MD has scheduled you for your procedure at this surgery center: [facility]: [phone] -- [address] [facility] [address]. Please read below carefully for your personalized [...] Procedures: - YOU MUST HAVE A RESPONSIBLE IMMIGRATION CASE MANAGER TAKE YOU HOME. A PUMP ATTENDANT OR LAB COORDINATOR CANNOT BE MADE A RESPONSIBLE IMMIGRATION CASE MANAGER. - We recommend that a responsible person [...] Advance Directive, please fax a copy to [phone] or email to for it to be [...] Jolly Dooley PA-C documented in this encounter [facility] 02-03-2023 History of Present illness Narrative General Surgery New Patient H&P PATIENT NAME: Madiha Perales Assessment ASSESSMENT/PLAN: (C50.412, Z17.0) Malignant neoplasm of upper-outer quadrant of left breast in female, estrogen receptor positive (HCC) (primary encounter diagnosis) Citlaly presents with a new diagnosis of left breast cancer, ER/FL positive and Her-2 positive. We discussed proceeding with surgical management. Options given including mastectomy versus breast conservation. She would like to proceed with lumpectomy with sentinel lymph node biopsy. Risks including bleeding, infection, lymphedema, the need for more surgery, and recurrent tumor were explained to the patient and her family and she would like to proceed. 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 Surgery is scheduled for February 18. [...] expected External controls: appropriately stained Progesterone Receptor (FL) Positive 70 % Stain intensity: strong Internal controls: present and stained as expected External controls: appropriately stained HER2 (ERBB2) IMMUNOHISTOCHEMISTRY ASSAY Interpretation: POSITIVE for HER2 (ERBB2) Expression Score: 3+ Torrie Choi MD documented in this encounter [facility] 02-03-2023 Procedure note Anticipated Surgical Procedure/ CPT Code: left LUMPECTOMY WITH SENTINEL LYMPH NODE BIOPSY - 32238-460, [id number], [id number], with EMANUEL Anticipated Anesthetic: General Patient weight: There were no vitals taken for this visit. BMI: There is no height or weight on file to calculate BMI. Planned antibiotic: SCDs needed: Yes Twine Reeling Machine Operator Needed: Yes Pre Op Clearance: PAT Anticoagulation: No Diabetic: No Location: [facility] OR Dx - left breast cancer documented in this encounter [facility] 01-29-2023 Miscellaneous Notes Called patient to notify the breast pathology results did show malignancy per Dr. Rausch. [facility] office staff will assist patient with a surgical consult appt with Dr. Choi/ Dr. Moore. Patient verbalized understanding. documented in this encounter [facility] 01-28-2023 Miscellaneous Notes Patient provided At Home Instructions pamphlet and Dr. Rausch spoke with her and her about after care and results. documented in this encounter [facility] 01-23-2023 History of Present illness Narrative No [...] in 6 months documented in this encounter [facility] Work Phone: 01-21-2023 History of Present illness [...] 2023 8:23 AM documented in this encounter [facility] 11-27-2022 History of Present illness Narrative Radiology [...] 2022 3:56 PM documented in this encounter [facility] 10-30-2022 History of Present illness Narrative Associated [...] the skin lesion. documented in this encounter [facility] Work Phone: 10-24-2022 History of Present illness [...] 40 minute appointment documented in this encounter [facility] Work Phone: 09-21-2021 Miscellaneous Notes September 21, 2021 PID: [id number] Madiha Perales [address] [place] [address] Dear Ms. Perales, We are pleased to [...] report will be kept on file at [facility] as part of your permanent medical record and are available for your continuing care. Thank you for allowing us to help in meeting your health care needs. Sincerely, Dr. Herring Interpreting Radiologist [facility] (Normal over 40) documented in this encounter [facility] 09-21-2021 History of Present illness Narrative Radiology [...] 2021 8:29 AM documented in this encounter [facility] 07-13-2020 History of Present illness Narrative Madiha [...] Seborrheic keratosis- Primary documented in this encounter [facility] Work Phone: Evaluation note* Diagnosis Seborrheic keratosis- Primary Pigmented skin lesion suspicious for malignant neoplasm documented in this encounter [facility] Work Phone: Evaluation note* Diagnosis Abnormal finding on radiological examination of breast- Primary Other (abnormal) findings on radiological examination of breast [facility] Diagnosis Abnormal finding on radiological examination of breast- Primary Other (abnormal) findings on radiological examination of breast [facility] Diagnosis Abnormal finding on radiological examination of breast Other (abnormal) findings on radiological examination of breast [facility]* Diagnosis Parkinsonism, unspecified Parkinsonism type (CMS/HCC)- Primary Depression with anxiety Dysthymic disorder Repeated falls 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CMS/HCC) documented in this encounter [facility] Work Phone: Evaluation note* Diagnosis Abnormal finding on radiological examination of breast Other (abnormal) findings on radiological examination of breast [facility] Diagnosis Malignant neoplasm of upper-outer quadrant of left breast in female, estrogen receptor positive (HCC)- Primary Malignant neoplasm of upper-outer quadrant of left breast in female, estrogen receptor positive (HCC) [facility] Diagnosis Malignant neoplasm of upper-outer quadrant of left breast in female, estrogen receptor positive (HCC)- Primary Malignant neoplasm of upper-outer quadrant of left breast in female, estrogen receptor positive (HCC) [facility]* Diagnosis Pre-op evaluation- Primary Preoperative examination, [...] receptor positive (HCC) [facility] Diagnosis Malignant neoplasm of upper-outer quadrant of left breast in female, estrogen receptor positive (HCC) Malignant neoplasm of upper-outer quadrant of left breast in female, estrogen receptor positive (HCC) [facility] Diagnosis Depression with anxiety- Primary Dysthymic disorder Repeated falls Parkinsonism, unspecified Parkinsonism type (CMS/HCC) Bilateral lower extremity edema documented in this encounter [facility] Work Phone: Evaluation note* Diagnosis Malignant neoplasm of upper-outer quadrant of left breast in female, estrogen receptor positive (HCC)- Primary [facility] Diagnosis Malignant neoplasm of upper-outer quadrant of left breast in female, estrogen receptor positive (HCC)- Primary [facility] Diagnosis Malignant neoplasm of upper-outer quadrant of left breast in female, estrogen receptor positive (HCC)- Primary Other general symptoms and signs [facility] Diagnosis Malignant neoplasm of upper-outer quadrant of left breast in female, estrogen receptor positive (HCC) documented in this encounter [facility] note* Diagnosis Malignant neoplasm of upper-outer quadrant of left breast in female, estrogen receptor positive (HCC)- Primary [facility] Diagnosis Malignant neoplasm of upper-outer quadrant of left breast in female, estrogen receptor positive (HCC) Other general symptoms and signs documented in this encounter [facility] note* Diagnosis Malignant neoplasm of upper-outer quadrant of left breast in female, estrogen receptor positive (HCC)- Primary documented in this encounter [facility] note* Diagnosis Malignant neoplasm of upper-outer quadrant of left breast in female, estrogen receptor positive (HCC) documented in this encounter [facility] note* Diagnosis Malignant neoplasm of upper-outer quadrant of left breast in female, estrogen receptor positive (HCC)- Primary documented in this encounter [facility] note* Diagnosis Malignant neoplasm of upper-outer quadrant of left breast in female, estrogen receptor positive (HCC)- Primary documented in this encounter [facility] note* Diagnosis Malignant neoplasm of upper-outer quadrant of left breast in female, estrogen receptor positive (HCC) documented in this encounter [facility] note* Diagnosis Malignant neoplasm of upper-outer quadrant of left breast in female, estrogen receptor positive (HCC)- Primary [facility] Diagnosis Malignant neoplasm of upper-outer quadrant of left breast in female, estrogen receptor positive (HCC)- Primary [facility] Diagnosis Malignant neoplasm of upper-outer quadrant of left breast in female, estrogen receptor positive (HCC) [facility]* Diagnosis Malignant neoplasm of upper-outer quadrant of left breast in female, estrogen receptor positive (HCC) [facility] Diagnosis Malignant neoplasm of upper-outer quadrant of left breast in female, estrogen receptor positive (HCC)- Primary [facility] Diagnosis Malignant neoplasm of upper-outer quadrant of left breast in female, estrogen receptor positive (HCC) [facility] Diagnosis Malignant neoplasm of upper-outer quadrant of left breast in female, estrogen receptor positive (HCC)- Primary [facility] Diagnosis Encounter for monitoring cardiotoxic drug therapy [facility] Diagnosis Malignant neoplasm of upper-outer quadrant of left breast in female, estrogen receptor positive (HCC)- Primary [facility] Diagnosis Malignant neoplasm of upper-outer quadrant of left breast in female, estrogen receptor positive (HCC) documented [facility] Diagnosis Malignant neoplasm of upper-outer quadrant of left breast in female, estrogen receptor positive (HCC) Localized edema Edema [facility]* Diagnosis Malignant neoplasm of upper-outer quadrant of left breast in female, estrogen receptor positive (HCC)- Primary Encounter for monitoring cardiotoxic drug therapy [facility] Diagnosis Malignant neoplasm of upper-outer quadrant of left breast in female, estrogen receptor positive (HCC) Localized edema Edema [facility] Diagnosis Malignant neoplasm of upper-outer quadrant of left breast in female, estrogen receptor positive (HCC) Falling Unspecified fall Hypotension, unspecified hypotension type [facility] this [facility]* Diagnosis Malignant neoplasm of upper-outer quadrant of left breast in female, estrogen receptor positive (HCC) [facility] Diagnosis Malignant neoplasm of upper-outer quadrant of left breast in female, estrogen receptor positive (HCC)- Primary [facility] Diagnosis Malignant neoplasm of upper-outer quadrant of left breast in female, estrogen receptor positive (HCC) documented [facility] Diagnosis Malignant neoplasm of upper-outer quadrant of left breast in female, estrogen receptor positive (HCC)- Primary [facility]* Diagnosis Malignant neoplasm of upper-outer quadrant of left breast in female, estrogen receptor positive (HCC) documented [facility] Diagnosis Encounter for monitoring cardiotoxic drug therapy documented in this encounter [facility]* Diagnosis Parkinsonism, unspecified Parkinsonism type- Primary Toxic effect of chemotherapy Dehydration Malignant neoplasm of right female breast, unspecified estrogen receptor status, unspecified site of breast (CMS/HCC) documented in this encounter [facility] Work Phone: Evaluation note* Diagnosis Malignant neoplasm of upper-outer quadrant of left female breast, unspecified estrogen receptor status (HCC) documented in this encounter [facility] note* Diagnosis Malignant neoplasm of upper-outer quadrant of left breast in female, estrogen receptor positive (HCC) (HCC)- Primary documented in this encounter [facility] note* Diagnosis Malignant neoplasm of upper-outer quadrant of left breast in female, estrogen receptor positive (HCC) (HCC) documented in this encounter [facility] [facility] note* Diagnosis Malignant neoplasm of upper-outer quadrant of left breast in female, estrogen receptor positive (HCC) (HCC)- Primary documented in this encounter [facility] note* Diagnosis Malignant neoplasm of upper-outer quadrant of left breast in female, estrogen receptor positive (HCC) (HCC)- Primary documented in this encounter [facility] [employer] note* Diagnosis Admission for therapeutic drug monitoring Encounter for therapeutic drug monitoring Encounter for monitoring cardiotoxic drug therapy documented in this encounter [facility] note* Diagnosis Parkinsonism, unspecified Parkinsonism type- Primary Malignant neoplasm of right female breast, unspecified estrogen receptor status, unspecified site of breast (CMS/HCC) 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CMS/HCC) Medicare annual wellness visit, subsequent Bilateral lower extremity edema documented in this encounter [facility] Work Phone: Evaluation note* Diagnosis Thyroid nodule Nontoxic uninodular goiter documented in this encounter [facility] Work Phone: Evaluation note* Diagnosis Nontoxic single thyroid nodule Nontoxic uninodular goiter documented in this encounter [facility] Work Phone: Evaluation note* Diagnosis Malignant neoplasm of upper-outer quadrant of left breast in female, estrogen receptor positive (HCC) (HCC) documented in this encounter [facility] note* Diagnosis Malignant neoplasm of upper-outer quadrant of left breast in female, estrogen receptor positive (HCC) (HCC) [facility] Diagnosis Malignant neoplasm of upper-outer quadrant of left breast in female, estrogen receptor positive (HCC) (HCC)- Primary [facility] Diagnosis Malignant neoplasm of upper-outer quadrant of left breast in female, estrogen receptor positive (HCC) (HCC)- Primary Encounter for monitoring cardiotoxic drug therapy Asymptomatic menopausal state Encounter for monitoring anastrozole therapy [facility] Diagnosis Malignant neoplasm of upper-outer quadrant of left breast in female, estrogen receptor positive (HCC) (HCC) [facility] Diagnosis Malignant neoplasm of upper-outer quadrant of left breast in female, estrogen receptor positive (HCC) (HCC)- Primary [facility] Diagnosis Malignant neoplasm of upper-outer quadrant of left breast in female, estrogen receptor positive (HCC) (HCC) Asymptomatic menopausal state Encounter for monitoring anastrozole therapy [facility] Diagnosis Malignant neoplasm of upper-outer quadrant of left breast in female, estrogen receptor positive (HCC)- Primary [facility] Diagnosis Admission for therapeutic drug monitoring Encounter for therapeutic drug monitoring Encounter for monitoring cardiotoxic drug therapy [facility] Diagnosis Malignant neoplasm of upper-outer quadrant of left breast in female, estrogen receptor positive (HCC) [facility]* Diagnosis Malignant neoplasm of upper-outer quadrant of left breast in female, estrogen receptor positive (HCC) [facility] Diagnosis Malignant neoplasm of upper-outer quadrant of left breast in female, estrogen receptor positive (HCC)- Primary [facility] Diagnosis Malignant neoplasm of upper-outer quadrant of left breast in female, estrogen receptor positive (HCC)- Primary [facility] Diagnosis Malignant neoplasm of upper-outer quadrant of left breast in female, estrogen receptor positive (HCC)- Primary [facility] Diagnosis 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 Parkinsonism, unspecified Parkinsonism type (Multi) Depression with anxiety Dysthymic disorder Pneumonia due to COVID-19 virus Malignant neoplasm of right female breast, unspecified estrogen receptor status, unspecified site of breast (Multi) documented in this encounter [facility] Work Phone: Evaluation note* Diagnosis Malignant neoplasm of upper-outer quadrant of left breast in female, estrogen receptor positive (HCC) documented in this encounter [facility] note* Diagnosis Malignant neoplasm of upper-outer quadrant of left breast in female, estrogen receptor positive (HCC)- Primary documented in this encounter [facility] note* Diagnosis Malignant neoplasm of upper-outer quadrant of left breast in female, estrogen receptor positive (HCC) documented in this encounter [facility] note* Diagnosis Visit for screening mammogram- Primary Other screening mammogram Malignant neoplasm of upper-outer quadrant of left breast in female, estrogen receptor positive (HCC) documented in this encounter [facility] note* Diagnosis Pre-op evaluation- Primary Preoperative [...] positive (HCC)- Primary documented in this encounter [facility] note* Diagnosis Malignant neoplasm of upper-outer quadrant of left breast in female, estrogen receptor positive (HCC)- Primary documented in this encounter [facility] note* Diagnosis Pre-op evaluation- Primary Preoperative [...] receptor positive (HCC) documented in this encounter [facility] note* Diagnosis Malignant neoplasm of upper-outer quadrant of left breast in female, estrogen receptor positive (HCC) [facility] Malignant neoplasm of upper-outer quadrant of left breast in female, estrogen receptor positive (HCC) [facility] Parkinsonism, unspecified Parkinsonism type (Multi)- Primary Malignant neoplasm of right female breast, unspecified estrogen receptor status, unspecified site of breast (Multi) Depression with anxiety Dysthymic disorder Elevated TSH Other abnormal blood chemistry Obesity (BMI 30.0-34.9) Other specified depressive episodes documented in this encounter [facility] Work Phone: Evaluation note* Diagnosis Malignant neoplasm of upper-outer quadrant of left breast in female, estrogen receptor positive (HCC) documented in this encounter [facility]* Diagnosis Malignant neoplasm of upper-outer quadrant of left breast in female, estrogen receptor positive (HCC) documented in this encounter [facility]* Diagnosis Malignant neoplasm of upper-outer quadrant of left breast in female, estrogen receptor positive (HCC)- Primary [facility] Diagnosis Medicare annual wellness visit, subsequent- Primary Depression with anxiety Dysthymic disorder Elevated TSH Other abnormal blood chemistry Parkinson's disease without dyskinesia or fluctuating manifestations Vitamin D deficiency Do not resuscitate documented in this encounter [facility] Work Phone: History of Present illness Narrative* [...] last checked in June, all reassuring. [facility] Work Phone: History of Present illness [...] sent through Care Everywhere. * DASH Diet (Tristanian) * Preventing falls in adults (Tristanian) [facility] [place] Reason for referral (narrative)* Diagnostic Procedure Only (Routine) - Closed Specialty Diagnoses / Procedures Referred By Ashley sigala Referred To Contact [facility] IMAGING Diagnoses Abnormal finding on radiological examination of breast Procedures US BREAST LTD LEFT US BREAST UNI REAL TIME WITH IMAGE LIMITED Jannette Mendez MD [address] [place] [address] [facility] [address] [place] [address] Referral ID Status Reason Start Date Expiration Date V isits Requested Visits Authorized [id number] Closed Auto-Generate d Referral 01/21/2023 06/22/2023 1 1 [facility] for referral (narrative)* Diagnostic Procedure Only (Routine) - Authorized Specialty Diagnoses / Procedures [facility]erred To Contact [facility] Diagnoses Abnormal finding on radiological examination of breast Procedures US BIOPSY BREAST LEFT BX BREAST W/DEVICE 1ST LESION ULTRASOUND GUID Jannette Mendez MD [address] [place] [address] [facility] Imaging [address] [place] [phone] Referral ID Status Reason Start Date Expiration Date Visits Requested Visits Authorized [id number] Authorized Auto-Generat ed Referral 01/21/2023 02/20/2024 1 1 [facility] for referral (narrative)* Diagnostic Procedure Only (Routine) - Closed Specialty Diagnoses / Procedures [facility] Referred To Contact [facility] Diagnoses Abnormal finding on radiological examination of breast Procedures US BREAST LTD LEFT US BREAST UNI REAL TIME WITH IMAGE LIMITED Jannette Mendez MD [address] [place] [address] [facility] [address] [place] [address] Referral ID Status Reason Start Date Expiration Date V isits Requested Visits Authorized [id number] Closed Auto-Generate d Referral 01/21/2023 06/22/2023 1 1 [facility] for referral (narrative)* Diagnostic Procedure Only (Routine) - Closed Specialty Diagnoses / Procedures Referred By Contac t Referred To Contact [facility] IMAGING Diagnoses Abnormal finding on radiological examination of breast Procedures US BIOPSY BREAST LEFT BX BREAST W/DEVICE 1ST LESION ULTRASOUND GUID Jannette Mendez MD [address] [place] [address] [facility] Imaging [address] [place] [address] Referral ID Status Reason Start Date Expiration Date V isits Requested Visits Authorized [id number] Closed Auto-Generate d Referral 01/21/2023 02/20/2024 1 1 [facility] for referral (narrative)* Diagnostic Procedure Only (Routine) - Pending Review Specialty Diagnoses / Procedures Referred By Contac t Referred To Contact BR IMAGING Diagnoses Malignant neoplasm of upper-outer quadrant of left breast in female, estrogen receptor positive (HCC) Procedures LEE NDL LOC W LEE GD LEFT PERQ DEVICE PLACEMENT BREAST LOC 1ST LES W/GDNCE Torrie Choi MD [address] [address] [facility] Imaging [address] [place] [phone] Referral ID Status Reason Start Date Expiration Date Visits Requested Visits Authorized [id number] Pending Review Auto-Generat ed Referral 02/03/2023 03/04/2024 1 1 [facility] for referral (narrative)* Diagnostic Procedure Only (Routine) - New Request Specialty Diagnoses / Procedures Referred By Contac t Referred To Contact [facility] IMAGING Diagnoses Visit for screening mammogram Malignant neoplasm of upper-outer quadrant of left breast in female, estrogen receptor positive (HCC) Procedures LEE SCREENING W SHIVA SCREENING DIGITAL BREAST TOMOSYNTHESIS BI SCREENING MAMMOGRAPHY BI 2-VIEW BREAST INC Lucius Spicer PA-C [address] [place] [address] [facility] Imaging [address] [place] [address] Referral ID Status Reason Start Date Expiration Date Visits Requested Visits Authorized [id number] New Request Auto-Generat ed Referral 02/04/2024 03/04/2025 1 1 T [facility] for referral (narrative)* Diagnostic Procedure Only (Routine) - Closed Specialty Diagnoses / Procedures Referred By Varshaac t Referred To Contact BR IMAGING Diagnoses Visit for screening mammogram Malignant neoplasm of upper-outer quadrant of left breast in female, estrogen receptor positive (HCC) Procedures LEE SCREENING W SHIVA SCREENING DIGITAL BREAST TOMOSYNTHESIS BI SCREENING MAMMOGRAPHY BI 2-VIEW BREAST INC Lucius Spicer PA-C [address] [place] [address] Br Imaging [facility] [place] [address] Referral ID Status Reason Start Date Expiration Date V isits Requested Visits Authorized [id number] Closed Auto-Generate d Referral 02/04/2024 03/04/2025 1 1 T [facility] for referral (narrative)* Consultation (Routine) - Pending Review Specialty Diagnoses / Procedures Referred By Ashley sigala Referred To Contact Physical Therapy Diagnoses Parkinsonism, unspecified Parkinsonism type (Multi) Marie Devi MD [address] [facility], [place] [address] Referral ID Status Reason Start Date Expiration Date Visits Requested Visits Authorized [id number] Pending Review Specialty Services Required 02/18/2024 02/17/2025 1 1 [facility] Work Phone: Reason for visit Narrative* Diagnostic Procedure Only (Routine) - Closed Specialty Diagnoses / Procedures Referred By Ashley t Referred To Contact [facility] IMAGING Diagnoses Abnormal finding on radiological examination of breast Procedures US BREAST LTD LEFT US BREAST UNI REAL TIME WITH IMAGE LIMITED Jannette Mendez MD [address] [place] [address] [facility] Imaging [address] [place] [phone] Referral ID Status Reason Start Date Expiration Date V isits Requested Visits Authorized [id number] Closed Auto-Generate d Referral 01/21/2023 06/22/2023 1 1 [facility] for visit Narrative* Diagnostic Procedure Only (Routine) - Closed Specialty Diagnoses / Procedures Referred By Contac t Referred To Contact BR IMAGING Diagnoses Abnormal finding on radiological examination of breast Procedures US BIOPSY BREAST LEFT BX BREAST W/DEVICE 1ST LESION ULTRASOUND GUID Jannette Mendez MD [address] [place] [address] Br Imaging [address] [place] [phone] Referral ID Status Reason Start Date Expiration Date V isits Requested Visits Authorized [id number] Closed Auto-Generate d Referral 01/21/2023 02/20/2024 1 1 [facility] for visit Narrative* Diagnostic Procedure Only (Routine) - Closed Specialty Diagnoses / Procedures Referred By Varshaac t Referred To Contact BR IMAGING Diagnoses Malignant neoplasm of upper-outer quadrant of left breast in female, estrogen receptor positive (HCC) Procedures LEE NDL LOC W LEE GD LEFT PERQ DEVICE PLACEMENT BREAST LOC 1ST LES W/GDMARLYNE Torrie Choi MD [address] [address] [facility] Imaging [address] [place] [phone] Referral ID Status Reason Start Date Expiration Date V isits Requested Visits Authorized [id number] Closed Auto-Generate d Referral 02/03/2023 03/04/2024 1 1 [facility] for visit Narrative* Diagnostic Procedure Only (Routine) - Closed Specialty Diagnoses / Procedures Referred By Contac t Referred To Contact BR IMAGING Diagnoses Visit for screening mammogram Malignant neoplasm of upper-outer quadrant of left breast in female, estrogen receptor positive (HCC) Procedures LEE SCREENING W SHIVA SCREENING DIGITAL BREAST TOMOSYNTHESIS BI SCREENING MAMMOGRAPHY BI 2-VIEW BREAST INC Lucius Spicer PA-C [address] [place] [address] Br Imaging [address] [place] [address] Referral ID Status Reason Start Date Expiration Date V isits Requested Visits Authorized [id number] Closed Auto-Generate d Referral 02/04/2024 03/04/2025 1 1 [facility] Family History No Family History Records Found [...] immunization * 1: Have you ever had Guillain-Hatch syndrome? (a viral illness resulting in neurological symptoms, including paralysis) (Yes/No): NO * 2. Have you ever had an anaphylactic reaction to prior flu vaccines? 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 Advance Directive(s) 01/17/2020 4:27 PM [...] Agents on File Name Relationship Healthcare Agent [facility] Christiano Perales Spouse Health Care Agent Summary Purpose Reason for Referral Specialty Diagnoses / Procedures Referred By Contac t Referred To Contact Diagnoses Seborrheic keratosis Pigmented skin lesion suspicious for malignant neoplasm Procedures Shaving Epidermal/Dermal Dara Sorensen, DO [address] [facility], [address] [place] [address] Referral ID Status Reason Start Date Expiration Date V isits Requested Visits Authorized [id number] Authorized 10/30/2022 04/28/2023 1 1 Specialty Diagnoses / Procedures Referred By Contac t Referred To Contact Radiation Oncology Diagnoses Malignant neoplasm of upper-outer quadrant of left breast in female, estrogen receptor positive (HCC) Procedures RAD/ONC CONSULT OFFICE/OUTPATIENT [facility] 60-74 MINUTES Torrie Choi MD [address] [address] Referral ID Status Reason Start Date Expiration Date Visits Requested Visits Authorized [id number] Authorized PCP Requested Referral 02/27/2023 02/27/2024 1 1 Specialty Diagnoses / Procedures Referred By Contac t Referred To Contact Oncology Diagnoses Malignant neoplasm of upper-outer quadrant of left breast in female, estrogen receptor positive (HCC) Procedures CONSULT TO ONCOLOGY OFFICE/OUTPATIENT [facility] 60-74 MINUTES Torrie Choi MD [address] [address] Referral ID Status Reason Start Date Expiration Date Visits Requested Visits Authorized [id number] Authorized PCP Requested Referral 02/27/2023 02/27/2024 1 1 Specialty Diagnoses / Procedures Referred By Contac t Referred To Contact Cardiology Diagnoses Malignant neoplasm of upper-outer quadrant of left breast in female, estrogen receptor positive (HCC) Other general symptoms and signs Procedures Transthoracic echocardiogram (TTE) complete with contrast, bubble, strain, and 3D PRN FL ECHO TTHRC R-T 2D W/WOM-MODE COMPL SPEC&COLR D FL TTE W OR WO FOL WCON,Stevie Lizarraga DO [address] [facility] [address] [place] [address] Referral ID Status Reason Start Date Expiration Date V isits Requested Visits Authorized [id number] Authorized 03/18/2023 09/14/2023 1 1 Referral ID Status Reason Start Date Expiration Date Visits Re quested Visits Authorized [id number] Closed 03/18/2023 09/14/2023 1 1 Specialty Diagnoses / Procedures Referred By Contac t Referred To Contact Cardiology Diagnoses Encounter for monitoring cardiotoxic drug therapy Procedures Transthoracic echocardiogram (TTE) complete with contrast, bubble, strain, and 3D PRN FL ECHO TTHRC R-T 2D W/WOM-MODE COMPL SPEC&COLR D FL TTE W OR WO FOL WCON,DOPPLER Stevie Escobedo, DO [address] [place] [address] Referral ID Status Reason Start Date Expiration Date V isits Requested Visits Authorized [id number] Authorized 05/20/2023 05/19/2024 1 1 Specialty Diagnoses / Procedures Referred By Contac t Referred To Contact Cardiology Diagnoses Malignant neoplasm of upper-outer quadrant of left breast in female, estrogen receptor positive (HCC) Localized edema Procedures Vascular US lower extremity venous duplex left Stevie Ecsobedo, DO [address] [place] [address] Referral ID Status Reason Start Date Expiration Date Visits Re quested Visits Authorized [id number] Closed 06/03/2023 06/02/2024 1 1 Referral ID Status Reason Start Date Expiration Date Visits Re quested Visits Authorized [id number] Closed 05/20/2023 05/19/2024 1 1 Specialty Diagnoses / Procedures Referred By Contac t Referred To Contact Radiology Diagnoses Malignant neoplasm of upper-outer quadrant of left female breast, unspecified estrogen receptor status (HCC) Procedures CT Sim WO Vicki Diego MD [address] [place] [address] Referral ID Status Reason Start Date Expiration Date Visits Re quested Visits Authorized [id number] Closed 07/02/2023 07/01/2024 1 1 Specialty Diagnoses / Procedures Referred By Contac t Referred To Contact Cardiology Diagnoses Admission for therapeutic drug monitoring Encounter for monitoring cardiotoxic drug therapy Procedures Transthoracic echocardiogram (TTE) complete with contrast, bubble, strain, and 3D PRN FL ECHO TTHRC R-T 2D W/WOM-MODE COMPL SPEC&COLR D FL TTE W OR WO FOL WCON,DOPPLER Fanny, Stevie E, DO [address] [place] [address] Referral ID Status Reason Start Date Expiration Date V isits Requested Visits Authorized [id number] Pending Review 07/29/2023 07/28/2024 1 1 Specialty Diagnoses / Procedures Referred By Contac t Referred To Contact Radiology Diagnoses Thyroid nodule Procedures US thyroid DulMarie arroyo MD [address] [place] [address], [facility] [address] [place] [address] Referral ID Status Reason Start Date Expiration Date Visits Requested Visits Authorized [id number] Pending Review Perform Procedure 07/30/2023 07/29/2024 1 1 Specialty Diagnoses / Procedures Referred By Contac t Referred To Contact Radiology Diagnoses Nontoxic single thyroid nodule Procedures US thyroid Marie Devi MD [address] [place] [address], [facility] [address] [place] [address] Referral ID Status Reason Start Date Expiration Date Visits Requested Visits Authorized [id number] Authorized Perform Procedure 07/30/2023 07/29/2024 1 1 Referral ID Status Reason Start Date Expiration Date Visits Requested Visits Authorized [id number] Pending Review Perform Procedure 07/26/2023 07/25/2024 1 1 Specialty Diagnoses / Procedures Referred By Contac t Referred To Contact Cardiology Diagnoses Admission for therapeutic drug monitoring Encounter for monitoring cardiotoxic drug therapy Procedures Transthoracic echocardiogram (TTE) complete with contrast, bubble, strain, and 3D PRN FL ECHO TTHRC R-T 2D W/WOM-MODE COMPL SPEC&COLR D FL TTE W OR WO FOL WCON,DOPPLER Fanny, Stevie E, DO [address] [place] [address] Referral ID Status Reason Start Date Expiration Date Visits Re quested Visits Authorized [id number] Closed 07/29/2023 07/28/2024 1 1 Medications Administered [...] or prosecute any alcohol or drug abuse patient.[facility] the event this information is protected by the Federal Confidentiality of Alcohol and Drug Abuse Patient Records regulations: The Federal rules restrict any use of the information to criminally investigate or prosecute any alcohol or drug abuse patient.[facility] HealthIn the event this information is protected by the Federal Confidentiality of Alcohol and Drug Abuse Patient Records regulations: The Federal rules restrict any use of the information to criminally investigate or prosecute any alcohol or drug abuse patient.[facility] the event this information is protected by the Federal Confidentiality of Alcohol and Drug Abuse Patient Records regulations: The Federal rules restrict any use of the information to criminally investigate or prosecute any alcohol or drug abuse patient.[facility] HealthIn the event this information is protected by the Federal Confidentiality of Alcohol and Drug Abuse Patient Records regulations: The Federal rules restrict any use of the information to criminally investigate or prosecute any alcohol or drug abuse patient.[facility] HealthIn the event this information is protected by the Federal Confidentiality of Alcohol and Drug Abuse Patient Records regulations: The Federal rules restrict any use of the information to criminally investigate or prosecute any alcohol or drug abuse patient.[facility] HealthIn the event this information is protected by the Federal Confidentiality of Alcohol and Drug Abuse Patient Records regulations: The Federal rules restrict any use of the information to criminally investigate or prosecute any alcohol or drug abuse patient.[facility] HealthIn the event this information is protected by the Federal Confidentiality of Alcohol and Drug Abuse Patient Records regulations: The Federal rules restrict any use of the information to criminally investigate or prosecute any alcohol or drug abuse patient.[facility] HealthIn the event this information is protected by the Federal Confidentiality of Alcohol and Drug Abuse Patient Records regulations: The Federal rules restrict any use of the information to criminally investigate or prosecute any alcohol or drug abuse patient.[facility] HealthIn the event this information is protected by the Federal Confidentiality of Alcohol and Drug Abuse Patient Records regulations: The Federal rules restrict any use of the information to criminally investigate or prosecute any alcohol or drug abuse patient.[facility] HealthIn the event this information is protected by the Federal Confidentiality of Alcohol and Drug Abuse Patient Records regulations: The Federal rules restrict any use of the information to criminally investigate or prosecute any alcohol or drug abuse patient.[facility] HealthIn the event this information is protected by the Federal Confidentiality of Alcohol and Drug Abuse Patient Records regulations: The Federal rules restrict any use of the information to criminally investigate or prosecute any alcohol or drug abuse patient.[facility] HealthIn the event this information is protected by the Federal Confidentiality of Alcohol and Drug Abuse Patient Records regulations: The Federal rules restrict any use of the information to criminally investigate or prosecute any alcohol or drug abuse patient.[facility] HealthIn the event this information is protected by the Federal Confidentiality of Alcohol and Drug Abuse Patient Records regulations: The Federal rules restrict any use of the information to criminally investigate or prosecute any alcohol or drug abuse patient.[facility] HealthIn the event this information is protected by the Federal Confidentiality of Alcohol and Drug Abuse Patient Records regulations: The Federal rules restrict any use of the information to criminally investigate or prosecute any alcohol or drug abuse patient.[facility] HealthIn the event this information is protected by the Federal Confidentiality of Alcohol and Drug Abuse Patient Records regulations: The Federal rules restrict any use of the information to criminally investigate or prosecute any alcohol or drug abuse patient.[facility] HealthIn the event this information is protected by the Federal Confidentiality of Alcohol and Drug Abuse Patient Records regulations: The Federal rules restrict any use of the information to criminally investigate or prosecute any alcohol or drug abuse patient.[facility] HealthIn the event this information is protected by the Federal Confidentiality of Alcohol and Drug Abuse Patient Records regulations: The Federal rules restrict any use of the information to criminally investigate or prosecute any alcohol or drug abuse patient.[facility] HealthIn the event this information is protected by the Federal Confidentiality of Alcohol and Drug Abuse Patient Records regulations: The Federal rules restrict any use of the information to criminally investigate or prosecute any alcohol or drug abuse patient.[facility] HealthIn the event this information is protected by the Federal Confidentiality of Alcohol and Drug Abuse Patient Records regulations: The Federal rules restrict any use of the information to criminally investigate or prosecute any alcohol or drug abuse patient.[facility] HealthIn the event this information is protected by the Federal Confidentiality of Alcohol and Drug Abuse Patient Records regulations: The Federal rules restrict any use of the information to criminally investigate or prosecute any alcohol or drug abuse patient.[facility] HealthIn the event this information is protected by the Federal Confidentiality of Alcohol and Drug Abuse Patient Records regulations: The Federal rules restrict any use of the information to criminally investigate or prosecute any alcohol or drug abuse patient.[facility] HealthIn the event this information is protected by the Federal Confidentiality of Alcohol and Drug Abuse Patient Records regulations: The Federal rules restrict any use of the information to criminally investigate or prosecute any alcohol or drug abuse patient.[facility] Reason for Visit (unrecogniz ed section and content) Specialty Diagnoses / Procedures Referred By Ashley t Referred To Contact Radiology / RADIO MAMMO [facility] Diagnoses Screening Mammogram, Z12.31 Procedures MAMMOGRAM SCREENING Marie Devi MD [address] [facility] [address] [place] [address] Radio Mammo [facility] [address] [place] [address] Referral ID Status Reason Start Date Expiration Date V isits Requested Visits Authorized [id number] Outside PCP 09/21/2021 11/20/2021 1 1 Reason [...] with contrast, bubble, strain, and 3D PRN FL ECHO TTHRC R-T 2D W/WOM-MODE COMPL SPEC&COLR D FL TTE W OR WO FOL WCON,DOPPLER Stevie Escobedo DO [address] [facility] [address] [place] [address] Referral ID Status Reason Start Date Expiration Date Visits Re quested Visits Authorized [id number] Closed 03/18/2023 09/14/2023 1 1 Reason Comments OP Infusion Specialty Diagnoses / Procedures Referred By Contac t Referred To Contact Diagnoses Malignant neoplasm of upper-outer quadrant of left breast in female, estrogen receptor positive (HCC) Stevie Escobedo DO [address] [place] [address] [facility] [address] [place] [address] Referral ID Status Reason Start Date Expiration Date V isits Requested Visits Authorized [id number] Authorized 03/21/2023 09/17/2023 2 2 Reason Comments Breast Cancer Reason Comments Follow-up Patient fell last we ek and called in and spoke to Nurse. Referral ID Status Reason Start Date Expiration Date V isits Requested Visits Authorized [id number] Authorized 03/21/2023 09/17/2023 999 1001 Reason Onset Date Comments order for ECHO 05/12/2023 Reason Onset Date Comments Orders 06/03/2023 Specialty Diagnoses / Procedures Referred By Contac t Referred To Contact Cardiology Diagnoses Malignant neoplasm of upper-outer quadrant of left breast in female, estrogen receptor positive (HCC) Localized edema Procedures Vascular US lower extremity venous duplex left Stevie Escobedo, DO [address] [place] [address] Referral ID Status Reason Start Date Expiration Date Visits Re quested Visits Authorized [id number] Closed 06/03/2023 06/02/2024 1 1 Reason Onset Date Comments Lab Orders 06/09/2023 Reason Onset Date Comments Nutrition Counseling 06/11/2023 Specialty Diagnoses / Procedures Referred By Contac t Referred To Contact Cardiology Diagnoses Encounter for monitoring cardiotoxic drug therapy Procedures Transthoracic echocardiogram (TTE) complete with contrast, bubble, strain, and 3D PRN FL ECHO TTHRC R-T 2D W/WOM-MODE COMPL SPEC&COLR D FL TTE W OR WO FOL WCON,DOPPLER Stevie Escobedo, DO [address] [place] [place] [address] Referral ID Status Reason Start Date Expiration Date Visits Re quested Visits Authorized [id number] Closed 05/20/2023 05/19/2024 1 1 Reason Comments Hospital Follow[place] [facility] [place] could not even stand, saying it was from the chemo Specialty Diagnoses / Procedures Referred By Ashley t Referred To Contact Radiology Diagnoses Malignant neoplasm of upper-outer quadrant of left female breast, unspecified estrogen receptor status (HCC) Procedures CT Sim WO Vicki Diego MD [address] [facility] [address] [place] [address] Referral ID Status Reason Start Date Expiration Date Visits Re quested Visits Authorized [id number] Closed 07/02/2023 07/01/2024 1 1 Reason Comments Follow-up Specialty Diagnoses / Procedures Referred By Ashley sigala Referred To Contact Diagnoses Malignant neoplasm of upper-outer quadrant of left breast in female, estrogen receptor positive (HCC) (HCC) Stevie Escobedo, DO [address] [place] [address] [facility] [address] [place] [address] Referral ID Status Reason Start Date Expiration Date V isits Requested Visits Authorized [id number] Authorized 03/21/2023 09/17/2023 999 1002 Reason Onset [...] Procedures US thyroid Marie Devi MD [address] [facility], [address] [place] [address] Referral ID Status Reason Start Date Expiration Date Visits Requested Visits Authorized [id number] Pending Review Perform Procedure 07/30/2023 07/29/2024 1 1 Specialty Diagnoses / Procedures Referred By Contac t Referred To Contact Radiology Diagnoses Nontoxic single thyroid nodule Procedures US thyroid Marie Devi MD [address] [facility], [address] [place] [address] Referral ID Status Reason Start Date Expiration Date Visits Requested Visits Authorized [id number] Authorized Perform Procedure 07/30/2023 07/29/2024 1 1 Referral ID Status Reason Start Date Expiration Date Visits Requested Visits Authorized [id number] Pending Review Perform Procedure 07/26/2023 07/25/2024 1 1 Referral ID Status Reason Start Date Expiration Date V isits Requested Visits Authorized [id number] Authorized 03/21/2023 09/17/2023 999 1003 Referral ID Status Reason Start Date Expiration Date V isits Requested Visits Authorized [id number] Authorized 03/21/2023 09/17/2023 999 1004 Specialty Diagnoses / Procedures Referred By Contac t Referred To Contact Cardiology Diagnoses Admission for therapeutic drug monitoring Encounter for monitoring cardiotoxic drug therapy Procedures Transthoracic echocardiogram (TTE) complete with contrast, bubble, strain, and 3D PRN FL ECHO TTHRC R-T 2D W/WOM-MODE COMPL SPEC&COLR D FL TTE W OR WO FOL WCON,DOPPLER Stevie sEcobedo DO [address] [place] [address] Referral ID Status Reason Start Date Expiration Date Visits Re quested Visits Authorized [id number] Closed 07/29/2023 07/28/2024 1 1 Specialty Diagnoses / Procedures Referred By Contac t Referred To Contact Diagnoses Malignant neoplasm of upper-outer quadrant of left breast in female, estrogen receptor positive (HCC) Stevie Escobedo DO [address] [place] [address] [facility] [address] [place] [address] Referral ID Status Reason Start Date Expiration Date V isits Requested Visits Authorized [id number] Authorized 03/21/2023 09/17/2023 999 1005 Reason Onset Date Comments Nutrition Counseling 10/06/2023 Specialty Diagnoses / Procedures Referred By Ashley sigala Referred To Contact [facility] [address] [place] [address] Referral ID Status Reason Start Date Expiration Date V isits Requested Visits Authorized [id number] New Request 10/15/2023 12/14/2023 Reason Comments Follow-up Pt is here for a hos pital follow up. Pt states she is doing better. Pt states she has no new concerns to discuss today. Reason Comments Breast Mass Reason Comments Patient Question Reason Comments Follow Up follow up Malignant neoplasm of upper-outer quadrant of left breast in female, estrogen receptor positive (HCC) [facility] On[facility] Notes under scanned Documents Reason Comments Erroneous encounter-disregard Reason Comments Home Care Start of care confir mation call Specialty Diagnoses / Procedures Referred By Ashley sigala Referred To Contact Diagnoses Malignant neoplasm of upper-outer quadrant of left breast in female, estrogen receptor positive (HCC) Stevie Escobedo, [address] [facility] [address] [place] [address] Phone: tel: fax: [facility] [address] [place] [address] Phone: tel: Reason Comments Follow-up Citlaly is here to follo w up for Parkinsonism/ dep. Her Marcos has a few questions to discuss today., Reason Comments Med Refill Reason Comments Medicare Annual Wellness Visit Juana t Pt presents for annual MWV- ABN was given to pt and signed, pt verbalized understanding. Care Teams (unrecognized sec tion and content) Soda Maker Relationship Specialty Start Date End Date Marie Devi MD PCP - General Family Practice 07/16/13 Soda Maker Relationship Specialty Start Date End Date Marie Devi MD PCP - General Family Practice 07/16/13 Soda Maker Relationship Specialty Start Date End Date Marie Devi MD [address] [facility] [place] [address] PCP - General 08/19/12 Marie Devi MD [address] [facility], [address] [place] [address] PCP - [employer] Medicare Advantage PCP 06/23/21 Soda Maker Relationship Specialty Start Date End Date Marie Devi MD [address] [facility], [address] [place] [address] PCP - General 08/19/12 Marie Devi MD [address] [facility], [address] [place] [address] PCP - [employer] Medicare Advantage PCP 06/23/21 Soda Maker Relationship Specialty Start Date End Date Marie Devi MD PCP - General Family Medicine 07/16/13 Soda Maker Relationship Specialty Start Date End Date Marie Devi MD PCP - General Family Medicine 07/16/13 Soda Maker Relationship Specialty Start Date End Date Marie Devi MD PCP - General Family Medicine 07/16/13 Soda Maker Relationship Specialty Start Date End Date Marie Devi MD PCP - General Family Medicine 07/16/13 Soda Maker Relationship Specialty Start Date End Date Marie Devi MD [address] [facility], [address] [place] [address] PCP - General 08/19/12 Marie Devi MD [address] [facility], [address] [place] [address] PCP - [facility] Medicare Advantage PCP 06/23/21 Soda Maker Relationship Specialty Start Date End Date Marie Devi MD PCP - General Family Medicine 07/16/13 Soda Maker Relationship Specialty Start Date End Date Marie Devi MD PCP - General Family Medicine 07/16/13 Soda Maker Relationship Specialty Start Date End Date Marie Devi MD PCP - General Family Medicine 07/16/13 Soda Maker Relationship Specialty Start Date End Date Marie Devi MD PCP - General Family Medicine 07/16/13 Soda Maker Relationship Specialty Start Date End Date Marie Devi MD PCP - General Family Medicine 07/16/13 Soda Maker Relationship Specialty Start Date End Date Marie Devi MD PCP - General Family Medicine 07/16/13 Soda Maker Relationship Specialty Start Date End Date Marie Devi MD PCP - General Family Medicine 07/16/13 Soda Maker Relationship Specialty Start Date End Date Marie Devi MD [address] [facility], [address] [place] [address] PCP - General 08/19/12 Marie Devi MD [address] [facility], [address] [place] [address] PCP - [employer] Medicare Advantage PCP 06/23/21 Soda Maker Relationship Specialty Start Date End Date Marie Devi MD PCP - General Family Medicine 07/16/13 Soda Maker Relationship Specialty Start Date End Date Marie Devi MD PCP - General Family Medicine 07/16/13 Soda Maker Relationship Specialty Start Date End Date Marie Devi MD [address] [facility], [address] [place] [address] PCP - General Family Medicine 03/06/23 Vicki Diego MD [address] [place] [address] Radiation Oncologist Radiation Oncology 03/06/23 Soda Maker Relationship Specialty Start Date End Date Marie Devi MD [address] [facility], [address] [place] [address] PCP - General Family Medicine 03/06/23 Vicki Diego MD [address] [place] [place] [address] Radiation Oncologist Radiation Oncology 03/06/23 Stevie Escobedo DO [address] [place] [place] [address] Consulting Physician Hematology and Oncology 03/18/23 Soda Maker Relationship Specialty Start Date End Date Marie Devi MD [address] [facility], [address] [place] [address] PCP - General Family Medicine 03/06/23 Vicki Diego MD [address] [place] [address] Radiation Oncologist Radiation Oncology 03/06/23 Stevie Escobedo DO [address] [place] [place] [address] Consulting Physician Hematology and Oncology 03/18/23 Soda Maker Relationship Specialty Start Date End Date Marie Devi MD [address] [facility], [address] [place] [address] PCP - General Family Medicine 03/06/23 Vicki Diego MD [address] [place] [address] Radiation Oncologist Radiation Oncology 03/06/23 Stevie Escobedo DO [address] [place] [place] [address] Consulting Physician Hematology and Oncology 03/18/23 Soda Maker Relationship Specialty Start Date End Date Marie Devi MD [address] [facility], [address] [place], [place] [address] PCP - General Family Medicine 03/06/23 Vicki Diego MD [address] [place] [address] Radiation Oncologist Radiation Oncology 03/06/23 Stevie Escobedo DO [address] [place] [place] [address] Consulting Physician Hematology and Oncology 03/18/23 Soda Maker Relationship Specialty Start Date End Date Marie Devi MD [address] [facility], [address] [place] [address] PCP - General Family Medicine 03/06/23 Vicki Diego MD [address] [place], [place] [id number] Radiation Oncologist Radiation Oncology 03/06/23 Stevie Escobedo DO [address] [place] [address] Consulting Physician Hematology and Oncology 03/18/23 Soda Maker Relationship Specialty Start Date End Date Marie Devi MD [address] [facility], [address] [place], [place] [address] PCP - General Family Medicine 03/06/23 Vicki Diego MD [address] [place] [address] Radiation Oncologist Radiation Oncology 03/06/23 Stevie Escobedo DO [address] [place] [address] Consulting Physician Hematology and Oncology 03/18/23 Soda Maker Relationship Specialty Start Date End Date Marie Devi MD [address] [facility], [address] [place], [place] [address] PCP - General Family Medicine 03/06/23 Vicki Diego MD [address] [place], [place] [id number] Radiation Oncologist Radiation Oncology 03/06/23 Stevie Escobedo DO [address] [place] [address] Consulting Physician Hematology and Oncology 03/18/23 Soda Maker Relationship Specialty Start Date End Date Marie Devi MD [address] [facility], [facility] [address] [place] [address] PCP - General Family Medicine 03/06/23 Vicki Diego MD [address] [place] [place] [address] Radiation Oncologist Radiation Oncology 03/06/23 Stevie Escobedo DO [address] [place] [place] [address] Consulting Physician Hematology and Oncology 03/18/23 Soda Maker Relationship Specialty Start Date End Date Marie Devi MD [address] [facility], [facility] [address] [place] [address] PCP - General Family Medicine 03/06/23 Vicki Diego MD [address] [place] [place] [address] Radiation Oncologist Radiation Oncology 03/06/23 Stevie Escobedo DO [address] [place] [place] [address] Consulting Physician Hematology and Oncology 03/18/23 Soda Maker Relationship Specialty Start Date End Date Marie Devi MD [address] [facility], [address] [place] [address] PCP - General Family Medicine 03/06/23 Vicki Diego MD [address] [place] [place] [address] Radiation Oncologist Radiation Oncology 03/06/23 Stevie Escobedo DO [address] [place] [place] [address] Consulting Physician Hematology and Oncology 03/18/23 Soda Maker Relationship Specialty Start Date End Date Marie Devi MD [address] [facility], [address] [place] [address] PCP - General Family Medicine 03/06/23 Vicki Diego MD [address] [place] [address] Radiation Oncologist Radiation Oncology 03/06/23 Stevie Escobedo DO [address] [place] [place] [address] Consulting Physician Hematology and Oncology 03/18/23 Soda Maker Relationship Specialty Start Date End Date Marie Devi MD [address] [facility], [address] [place] [address] PCP - General Family Medicine 03/06/23 Vicki Diego MD [address] [place] [address] Radiation Oncologist Radiation Oncology 03/06/23 Stevie Escobedo DO [address] [place] [place] [address] Consulting Physician Hematology and Oncology 03/18/23 Soda Maker Relationship Specialty Start Date End Date Marie Devi MD [address] [facility], [address] [place] [address] PCP - General Family Medicine 03/06/23 Vicki Diego MD [address] [place] [address] Radiation Oncologist Radiation Oncology 03/06/23 Stevie Escobedo DO [address] [place] [address] Consulting Physician Hematology and Oncology 03/18/23 Soda Maker Relationship Specialty Start Date End Date Marie Devi MD [address] [facility], [address] [place] [address] PCP - General Family Medicine 03/06/23 Vicki Diego MD [address] [place] [address] Radiation Oncologist Radiation Oncology 03/06/23 Stevie Escobedo DO [address] [place] [place] [address] Consulting Physician Hematology and Oncology 03/18/23 Soda Maker Relationship Specialty Start Date End Date Marie Devi MD [address] [facility], [address] [place] [address] PCP - General Family Medicine 03/06/23 Vicki Diego MD [address] [place] [address] Radiation Oncologist Radiation Oncology 03/06/23 Stevie Escobedo DO [address] [place] [place] [address] Consulting Physician Hematology and Oncology 03/18/23 Soda Maker Relationship Specialty Start Date End Date Marie Devi MD [address] [facility], [address] [place] [address] PCP - General Family Medicine 03/06/23 Vicki Diego MD [address] [place] [place] [address] Radiation Oncologist Radiation Oncology 03/06/23 Stevie Escobedo DO [address] [place] [address] Consulting Physician Hematology and Oncology 03/18/23 Soda Maker Relationship Specialty Start Date End Date Marie Devi MD [address] [facility], [address] [place] [address] PCP - General Family Medicine 03/06/23 Vicki Diego MD [address] [place] [place] [address] Radiation Oncologist Radiation Oncology 03/06/23 Stevie Escobedo DO [address] [place] [place] [address] Consulting Physician Hematology and Oncology 03/18/23 Soda Maker Relationship Specialty Start Date End Date Marie Devi MD [address] [facility], [address] [place] [address] PCP - General Family Medicine 03/06/23 Vicki Diego MD [address] [place] [address] Radiation Oncologist Radiation Oncology 03/06/23 Stevie Escobedo DO [address] [place] [place] [address] Consulting Physician Hematology and Oncology 03/18/23 Soda Maker Relationship Specialty Start Date End Date Marie Devi MD [address] [facility], [address] [place] [address] PCP - General Family Medicine 03/06/23 Vicki Diego MD [address] [place] [address] Radiation Oncologist Radiation Oncology 03/06/23 Stevie Escobedo DO [address] [place] [place] [address] Consulting Physician Hematology and Oncology 03/18/23 Soda Maker Relationship Specialty Start Date End Date Marie Devi MD [address] [facility], [address] [place] [address] PCP - General Family Medicine 03/06/23 Vicki Diego MD [address] [place] [place] [address] Radiation Oncologist Radiation Oncology 03/06/23 Stevie Escobedo DO [address] [place] [place] [address] Consulting Physician Hematology and Oncology 03/18/23 Soda Maker Relationship Specialty Start Date End Date Marie Devi MD [address] [facility], [facility] [address] [place] [address] PCP - General Family Medicine 03/06/23 Vicki Diego MD [address] [place] [place] [address] Radiation Oncologist Radiation Oncology 03/06/23 Stevie Escobedo DO [address] [place] [place] [address] Consulting Physician Hematology and Oncology 03/18/23 Soda Maker Relationship Specialty Start Date End Date Marie Devi MD [address] [facility], [address] [place] [address] PCP - General Family Medicine 03/06/23 Vicki Diego MD [address] [place] [place] [address] Radiation Oncologist Radiation Oncology 03/06/23 Stevie Escobedo DO [address] [place] [place] [address] Consulting Physician Hematology and Oncology 03/18/23 Soda Maker Relationship Specialty Start Date End Date Marie Devi MD [address] [facility], [address] [place] [address] PCP - General Family Medicine 03/06/23 Vicki Diego MD [address] [place] [place] [address] Radiation Oncologist Radiation Oncology 03/06/23 Stevie Escobedo DO [address] [place] [place] [address] Consulting Physician Hematology and Oncology 03/18/23 Soda Maker Relationship Specialty Start Date End Date Marie Devi MD [address] [facility], [address] [place] [address] PCP - General Family Medicine 03/06/23 Vicki Diego MD [address] [place] [place] [address] Radiation Oncologist Radiation Oncology 03/06/23 Stevie Escobedo DO [address] [place] [place] [address] Consulting Physician Hematology and Oncology 03/18/23 Soda Maker Relationship Specialty Start Date End Date Marie Devi MD [address] [facility], [address] [place] [address] PCP - General 08/19/12 Marie Devi MD [address] [facility], [address] [place] [address] PCP - [employer] Medicare Advantage PCP 06/23/21 Mirta Brody, community relations liaisonManager Education 06/09/23 Soda Maker Relationship Specialty Start Date End Date Marie Devi MD [address] [facility], [address] [place] [address] PCP - General Family Medicine 03/06/23 Vicki Diego MD [address] [place] [place] [address] Radiation Oncologist Radiation Oncology 03/06/23 Stevie Escobedo DO [address] [place] [place] [address] Consulting Physician Hematology and Oncology 03/18/23 Soda Maker Relationship Specialty Start Date End Date Marie Devi MD [address] [facility], [address] [place] [address] PCP - General Family Medicine 03/06/23 Vicki Diego MD [address] [place] [place] [address] Radiation Oncologist Radiation Oncology 03/06/23 Stevie Escobedo DO [address] [place] [place] [address] Consulting Physician Hematology and Oncology 03/18/23 Soda Maker Relationship Specialty Start Date End Date Marie Devi MD [address] [facility], [address] [place] [address] PCP - General Family Medicine 03/06/23 Vicki Diego MD [address] [place] [place] [address] Radiation Oncologist Radiation Oncology 03/06/23 Stevie Escobedo DO [address] [place] [place] [address] Consulting Physician Hematology and Oncology 03/18/23 Soda Maker Relationship Specialty Start Date End Date Marie Devi MD [address] [facility], [address] [place] [address] PCP - General Family Medicine 03/06/23 Vicki Diego MD [address] [place] [place] [address] Radiation Oncologist Radiation Oncology 03/06/23 Stevie Escobedo DO [address] [place] [address] [place] [address] Consulting Physician Hematology and Oncology 03/18/23 Soda Maker Relationship Specialty Start Date End Date Marie Devi MD [address] [facility], [address] [place] [address] PCP - General Family Medicine 03/06/23 Vicki Diego MD [address] [place] [address] [place] [address] Radiation Oncologist Radiation Oncology 03/06/23 Stevie Escobedo DO [address] [place] [place] [address] Consulting Physician Hematology and Oncology 03/18/23 Soda Maker Relationship Specialty Start Date End Date Marie Devi MD [address] [facility], [address] [place] [address] PCP - General Family Medicine 03/06/23 Vicki Diego MD [address] [place] [place] [address] Radiation Oncologist Radiation Oncology 03/06/23 Stevie Escobedo DO [address] [place] [place] [address] Consulting Physician Hematology and Oncology 03/18/23 Soda Maker Relationship Specialty Start Date End Date Marie Devi MD [address] [facility], [address] [place], [place] [address] PCP - General Family Medicine 03/06/23 Vicki Diego MD [address] [place] [place] [address] Radiation Oncologist Radiation Oncology 03/06/23 Stevie Escobedo DO [address] [place] [place] [address] Consulting Physician Hematology and Oncology 03/18/23 Soda Maker Relationship Specialty Start Date End Date Marie Devi MD [address] [facility], [address] [place], [place] [address] PCP - General Family Medicine 03/06/23 Vicki Diego MD [address] [place] [place] [address] Radiation Oncologist Radiation Oncology 03/06/23 Stevie Escobedo DO [address] [place] [place] [address] Consulting Physician Hematology and Oncology 03/18/23 Soda Maker Relationship Specialty Start Date End Date Marie Devi MD [address] [facility], [address] [place] [address] PCP - General 08/19/12 Marie Devi MD [address] [facility], [address] [place] [address] PCP - [employer] Ad[employer]age PCP 06/23/21 Mirta Brody, community relations liaisonManager Education 06/09/23 Soda Maker Relationship Specialty Start Date End Date Marie Devi MD [address] [facility], [address] [place] [address] PCP - General 08/19/12 Marie Devi MD [address] [facility], [address] [place] [address] PCP - [employer] Medicare Advantage PCP 06/23/21 Mirta Brody, community relations liaisonManager Education 06/09/23 Soda Maker Relationship Specialty Start Date End Date Marie Devi MD [address] [facility], [address] [place] [address] PCP - General 08/19/12 Marie Devi MD [address] [facility], [address] [place], [place] [address] PCP - [employer] Medicare Advantage PCP 06/23/21 Mirta Brody, community relations liaisonManager Education 06/09/23 Soda Maker Relationship Specialty Start Date End Date Marie Devi MD [address] [facility], [address] [place] [address] PCP - General Family Medicine 03/06/23 Vicki Diego MD [address] [place] [place] [address] Radiation Oncologist Radiation Oncology 03/06/23 Stevie Escobedo DO [address] [place] [place] [address] Consulting Physician Hematology and Oncology 03/18/23 Soda Maker Relationship Specialty Start Date End Date Marie Devi MD [address] [facility], [address] [place], [place] [address] PCP - General Family Medicine 03/06/23 Vicki Diego MD [address] [place] [place] [address] Radiation Oncologist Radiation Oncology 03/06/23 Stevie Escobedo DO [address] [place] [place] [address] Consulting Physician Hematology and Oncology 03/18/23 Soda Maker Relationship Specialty Start Date End Date Marie Devi MD [address] [facility], [address] [place] [address] PCP - General Family Medicine 03/06/23 Vicki Diego MD [address] [facility], [address] [place] [address] Radiation Oncologist Radiation Oncology 03/06/23 Stevie Escobedo DO [address] [place] [address] [place] [address] Consulting Physician Hematology and Oncology 03/18/23 Soda Maker Relationship Specialty Start Date End Date Marie Devi MD [address] [facility], [address] [place] [address] PCP - General Family Medicine 03/06/23 Vicki Diego MD [address] [facility], [address] [place], [place] [address] Radiation Oncologist Radiation Oncology 03/06/23 Stevie Escobedo DO [address] [place] [address] [place] [address] Consulting Physician Hematology and Oncology 03/18/23 Soda Maker Relationship Specialty Start Date End Date Marie Devi MD [address] [facility], [address] [place], [place] [id number] PCP - General Family Medicine 03/06/23 Vicki Diego MD [address] [facility], [address] [place], [place] [address] Radiation Oncologist Radiation Oncology 03/06/23 Stevie Escobedo DO [address] [place] [place], [place] [id number] Consulting Physician Hematology and Oncology 03/18/23 Soda Maker Relationship Specialty Start Date End Date Marie Devi MD [address] [facility], [address] [place] [address] PCP - General Family Medicine 03/06/23 Vicki Diego MD [address] [facility], [address] [place] [address] Radiation Oncologist Radiation Oncology 03/06/23 Stevie Escobedo DO [address] [place] [address] [place] [address] Consulting Physician Hematology and Oncology 03/18/23 Soda Maker Relationship Specialty Start Date End Date Marie Devi MD [address] [facility], [address] [place] [address] PCP - General Family Medicine 03/06/23 Vicki Diego MD [address] [facility], [address] [place] [address] Radiation Oncologist Radiation Oncology 03/06/23 Stevie Escobedo DO [address] [place], [place] [id number] Consulting Physician Hematology and Oncology 03/18/23 Soda Maker Relationship Specialty Start Date End Date Marie Devi MD PCP - General Family Medicine 07/16/13 Luana Montgomery MD [address] [place] [address] [phone] Referring Internal Medicine 06/08/23 Marie Devi MD [address] [facility] [address] [place] [address] Home Care Provider Family Medicine 06/09/23 Soda Maker Relationship Specialty Start Date End Date Marie Devi MD [address] [facility], [facility] [address] [place] [address] PCP - General Family Medicine 03/06/23 Vicki Diego MD [address] [facility], [facility] [address] [place] [address] Radiation Oncologist Radiation Oncology 03/06/23 Stevie Escobedo DO [address] [place] [address] [place] [address] Consulting Physician Hematology and Oncology 03/18/23 Soda Maker Relationship Specialty Start Date End Date Marie Devi MD [address] [facility], [address] [place] [address] PCP - General Family Medicine 03/06/23 Vicki Diego MD [address] [facility], [address] [place], [place] [address] Radiation Oncologist Radiation Oncology 03/06/23 Stevie Escobedo DO [address] [place] [place] [address] Consulting Physician Hematology and Oncology 03/18/23 Soda Maker Relationship Specialty Start Date End Date Marie Devi MD [address] [facility], [address] [place] [address] PCP - General 08/19/12 Marie Devi MD [address] [facility], [address] [place] [address] PCP - [employer] Medicare Advantage PCP 06/23/21 Ivanna Godinez MA Research MechanicManager Education 10/29/23 Soda Maker Relationship Specialty Start Date End Date Marie Devi MD [address] [facility], [address] [place] [address] PCP - General Family Medicine 03/06/23 Vicki Diego MD [address] [facility], [address] [place] [address] Radiation Oncologist Radiation Oncology 03/06/23 Stevie Escobedo DO [address] [facility] [address] [place] [address] Consulting Physician Hematology and Oncology 03/18/23 Soda Maker Relationship Specialty Start Date End Date Marie Devi MD [address] [facility], [address] [place], [place] [address] PCP - General Family Medicine 03/06/23 Vicki Diego MD [address] [facility], [address] [place], [place] [address] Radiation Oncologist Radiation Oncology 03/06/23 Stevie Escobedo DO [address] [place] [address] [place] [address] Consulting Physician Hematology and Oncology 03/18/23 Soda Maker Relationship Specialty Start Date End Date Marie Devi MD PCP - General Family Medicine 07/16/13 Luana Montgomery MD [address] [place] [address] Referring Internal Medicine 06/08/23 Marie Devi MD [address] [facility] [address] [place] [address] Home Care Provider Family Medicine 06/09/23 Soda Maker Relationship Specialty Start Date End Date Marie Devi MD PCP - General Family Medicine 07/16/13 Luana Montgomery MD [address] [place] [address] Referring Internal Medicine 06/08/23 Marie Devi MD [address] [facility] [address] [place] [address] Home Care Provider Family Medicine 06/09/23 Soda Maker Relationship Specialty Start Date End Date Marie Devi MD [address] [facility], [address] [place] [address] PCP - General Family Medicine 03/06/23 Vicki Diego MD [address] [facility], [address] [place] [address] Radiation Oncologist Radiation Oncology 03/06/23 Stevie Escobedo DO [address] [facility] [address] [place] [address] Consulting Physician Hematology and Oncology 03/18/23 Soda Maker Relationship Specialty Start Date End Date Marie Devi MD PCP - General Family Medicine 07/16/13 Luana Montgomery MD [address] [place] [address] Referring Internal Medicine 06/08/23 Marie Devi MD [address] [address] Home Care Provider Family Medicine 06/09/23 Soda Maker Relationship Specialty Start Date End Date Marie Devi MD PCP - General Family Medicine 07/16/13 Luana Montgomery MD [address] [place] [address] Referring Internal Medicine 06/08/23 Marie Devi MD [address] [address] Home Care Provider Family Medicine 06/09/23 Yony Osullivan, RN [address] [place] [address] Cap Jewel Plate Assembler Post Acute Care 06/09/23 06/26/23 Soda Maker Relationship Specialty Start Date End Date Marie Devi MD PCP - General Family Medicine 07/16/13 Luana Montgomery MD [address] [place] [address] [phone] Referring Internal Medicine 06/08/23 Marie Devi MD [address] [facility] [address] [place], [place] [address] Home Care Provider Family Medicine 06/09/23 Yony Osullivan, RN [address] [place], [place] [id number] Cap Jewel Plate Assembler Post Acute Care 06/09/23 06/26/23 Soda Maker Relationship Specialty Start Date End Date Marie Devi MD [address] [facility], [address] [place] [address] PCP - General Family Medicine 03/06/23 Vicki Diego MD [address] [facility], [facility] [address] [place] [address] Radiation Oncologist Radiation Oncology 03/06/23 Stevie Escobedo DO [address] [facility] [address] [place] [address] Consulting Physician Hematology and Oncology 03/18/23 Soda Maker Relationship Specialty Start Date End Date Marie Devi MD [address] [facility], [address] [place], [place] [address] PCP - General 08/19/12 Marie Devi MD [address] [facility], [address] [place], [place] [address] PCP - [employer] Medicare Advantage PCP 06/23/21 Soda Maker Relationship Specialty Start Date End Date Marie Devi MD [address] [facility], [address] [place] [address] PCP - General Family Medicine 03/06/23 Vicki Diego MD [address] [facility], [address] [place] [address] Radiation Oncologist Radiation Oncology 03/06/23 Stevie Escobedo DO [address] [place] [address] [place] [address] Consulting Physician Hematology and Oncology 03/18/23 Soda Maker Relationship Specialty Start Date End Date Leonardo Santos DO [address] [facility] [address] [place] [address] PCP - General Family Medicine 08/10/24 Vicki Diego MD Radiation Oncologist Radiation Oncology 03/06/23 Stevie Escobedo DO [address] [place] [address] [place] [address] Consulting Physician Hematology and Oncology 03/18/23 Soda Maker Relationship Specialty Start Date End Date Marie Devi MD [address] [facility] [address] [place], [place] [address] PCP - [employer] Medicare Advantage PCP 06/23/21 Leonardo Santos DO [address] [facility], [address] [place] [address] PCP - General Family Medicine 08/12/24 INFORMATION SOURCE (unrecogn ized section and content) DATE CREATED AUTHOR 01/12/2022 [employer] DATE CREATED AUTHOR AUTHOR'S ORGANIZ ATION 02/07/2023 [facility] DATE CREATED AUTHOR AUTHOR'S ORGANIZ ATION 12/19/2023 [facility] DATE CREATED AUTHOR AUTHOR'S ORGANIZ ATION 04/14/2024 [facility] DATE CREATED AUTHOR AUTHOR'S ORGANIZ ATION 08/11/2024 [facility] DATE CREATED AUTHOR AUTHOR'S ORGANIZ ATION 09/19/2024 [facility] DATE CREATED AUTHOR AUTHOR'S ORGANIZ ATION 11/06/2024 [facility] DATE CREATED AUTHOR AUTHOR'S ORGANIZ ATION 12/10/2024 [facility] FOR RECORDS PERTAINING TO PATIENTS WHO ARE [...] BE BASED ON THE PRIMARY CLINICAL RECORDS. [facility] [employer] [facility]. provides no warranty or guarantee of the accuracy or completeness of information in this document.
[2024-12-13 09:15] LABS: Anion Gap 10 (5-15); BUN 18 mg/dL (4-19); BUN/Creat Ratio 26.3 RATIO (10-20); Calcium,Total 8.7 mg/dL (7.6-11.0); Chloride 103 mmol/L (98-108); Creatinine, Serum 0.69 mg/dL (0.70-1.20); EST Glomerular Filtration Rate 89 (>60); Glucose 84 mg/dL (70-99); Potassium 4.3 mmol/L (3.3-5.1); Sodium Level 140 mmol/L (133-145)
== END ==
LOC: OLS.ACH 05:00
PROVIDERS: Visit Provider Internal Medicine
DX: G20.A1 Parkinson's disease without dyskinesia, without mention of fluctuations (principal); R62.7 Adult failure to thrive
CPT/HCPCS: 36415; 80048

== ENCOUNTER → 2025-01-11 05:00 | Outpatient (REF) | payer MEDICARE, SELFPAY ==
--- OUTSIDE RECORDS SUMMARY | 2025-01-11 03:20 | XMS RPT_ITS | CCD ---
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 Name Role Phone Marie Devi Unavailable Unavailable [...] Primary Care Provider Vicki Diego MD Unavailable Fuentes DOesa E Unavailable Mary Grace YOUNG, Mirta Unavailable Unavailable Vicki Diego MD Unavailable Fanny GRAFF Stevie E Unavailable Marie Devi MD Primary Care Provider Luana Montgomery MD Unavailable Marie Devi MD Unavailable Ivanna Godinez MA Unavailable Unavailable MARIE DEVI Referring Unavailable MARIE DEVI Primary Care Unavailable MARIE DEVI Referring Unavailable MARIE DEVI Primary Care Unavailable MARIE DEVI Primary Care Unavailable MARIE DEVI Referring Unavailable MARIE DEVI Primary Care Unavailable MARIE DEVI Primary Care Unavailable Gertrude YOUNG, Yony Unavailable Marie Devi MD Primary Care Provider [phone] MARIE DEVI Primary Care Unavailable FANNY, STEVIE Attending Unavailable DULDINA, MARIE Primary Care Unavailable FANNY, STEVIE Referring Unavailable FANNY, STEVIE Attending Unavailable DULDINA, MARIE Primary Care Unavailable FANNY, STEVIE Referring Unavailable STANEC, LEONARDO Primary Care Unavailable FANNY, STEVIE Attending Unavailable DULLE, MARIE Primary Care Unavailable FANNY, STEVIE Attending Unavailable FANNY, STEVIE Attending Unavailable DULLE, MARIE Primary Care Unavailable FANNY, STEVIE Attending Unavailable DULLE, MARIE Primary Care Unavailable FANNY, STEVIE Referring Unavailable FANNY, STEVIE Attending Unavailable DULLE, MARIE Primary Care Unavailable FANNY, STEVIE Referring Unavailable FANNY, STEVIE Attending Unavailable DULDINA, MARIE Primary Care Unavailable DULLE, MARIE Primary Care Unavailable DONCALS VICKI Attending Unavailable FANNY, STEVIE Referring Unavailable DONCALSLORELEIE Attending Unavailable SHANDRA, MARIE Primary Care Unavailable FANNY, STEVIE Attending Unavailable DULDINA, MARIE Primary Care Unavailable FANNY, STEVIE Referring Unavailable FANNY, STEVIE Attending Unavailable DULDINA, MARIE Primary Care Unavailable FANNY, STEVIE Referring Unavailable Vicki Diego MD Unavailable Stanec DO, Leonardo Primary Care Provider [phone] Marie Devi MD Unavailable Tom DO, Leonardo R Primary Care Provider [phone] MARIE DEVI Primary Care Unavailable GRACY, LUCIUS Referring Unavailable TIO, RIMON Attending Unavailable ANAHI POLANCO Admitting Unavailable MARIE DEVI Primary Care Unavailable KELTON TAYLOR Consulting Unavailable MARIE DEVI Attending Unavailable MARIE DEVI Primary Care Unavailable STANSOHAIL, LEONARDO R Attending Unavailable STANEC, LEONARDO R Primary Care Unavailable Marie Devi MD Primary Care Provider Marie Devi MD Unavailable [facility], [facility] Attending Azam Jesus Attending Unavailable SARA RAMEY Attending Unavailable RACHEAL DE LA ROSA Referring Unavailable MARIE DEVI Primary Care Unavailable MARIE DEVI Primary Care Unavailable TORRIE CHOI Attending Unavailable Allergies Allergy Classification Reported Allergen(s) Allergy Type Date of Onset Reaction(s) Facility Alendronate (3 sources) Alendronate; Translations: [Fosamax] Drug Allergy [facility] Work Phone: Cephalosporins (antibiotic) (3 sources) Cephalexin; Translations: [Keflex TABS] Drug Allergy [facility] Work Phone: Penicillins (antibiotic) (3 sources) Penicillins; Translations: [Penicillins] Drug Allergy [facility] Work Phone: pregabalin (3 sources) pregabalin; Translations: [Lyrica CAPS] Drug Allergy [facility] Work Phone: Serotonin Reuptake Inhibitors (SSRIs) (3 sources) Escitalopram Drug Allergy [facility] Work Phone: (11 sources) Alendronate; Translations: [Fosamax] Drug Allergy [facility] Work Phone: (20 sources) Aspirin; Translations: [Adult Aspirin Low Strength TBDP] Drug Allergy 10-31-[address] [facility] Work Phone: (20 sources) Cephalexin; Translations: [Keflex TABS] Drug Allergy 05-07-20 10 Unknown [facility] Work Phone: (11 sources) Escitalopram Drug Allergy [facility] Work Phone: (16 sources) Penicillins; Translations: [Penicillins] Allergy to drug (finding) 05-12-20 10 [facility] (20 sources) pregabalin; Translations: [Lyrica CAPS] Drug Allergy 05-07-20 10 [facility] Work Phone: (20 sources) Alendronate; Translations: [ALENDRONIC ACID] Drug Allergy 05-07-20 10 Unknown, [facility] Work Phone: (20 sources) nickel; Translations: [NICKEL] Drug Allergy 05-07-20 10 Unknown [facility] Work Phone: (2 sources) Penicillins Drug Allergy 05-12-20 10 Unknown [facility] Work Phone: (20 sources) Salicylic Acid; Translations: [SALICYLATES] Drug Allergy 05-07-20 10 Unknown, Other [facility] Work Phone: (17 sources) CONTRAST DYE MRI [Other] Propensity to adverse reactions 06-14-20 [facility] (14 sources) Escitalopram; Translations: [ESCITALOPRAM OXALATE] Drug Allergy 10-25-19 Other [facility] Work Phone: (20 sources) Penicillins Drug Allergy 05-12-20 10 [facility] Work Phone: (12 sources) Salicylic Acid Drug Allergy 05-07-20 10 [facility] Work Phone: (20 sources) Iodinated Contrast Media; Translations: [IODINATED CONTRAST MEDIA] Drug Intolerance 06-14-20 10 [facility] Work Phone: (20 sources) Salicylate product Propensity to adverse reactions to drug 05-07-20 10 [facility] Work Phone: (20 sources) Alendronate Drug Allergy 05-07-20 10 Unknown, Other [employer] (20 sources) Escitalopram Drug Allergy 10-25-19 23 Other, Unknown [facility] (20 sources) Gadolinium Drug Allergy 03-06-20 [facility] (20 sources) Iodine; Translations: [IODINE] Drug Allergy 03-06-20 [facility] [employer] (20 sources) nickel sulfate Drug Allergy 05-07-20 10 Unknown [facility] [employer] (20 sources) Penicillins Drug Allergy 05-12-20 10 Unknown [facility] [employer] (20 sources) Pregabalin; Translations: [PREGABALIN] Allergy to substance 05-07-20 10 Unknown [facility] [employer] (7 sources) Prednisone & Diphenhydramine Drug Allergy 03-06-20 23 Unknown [facility] (10 sources) Acetaminophen / HYDROcodone; Translations: [HYDROCODONE-ACETA MINOPHEN] Drug Allergy 08-14-19 12 Nausea/vomitin g [facility] (2 sources) Aspirin; Translations: [ASPIRIN] Drug Allergy 10-31-19 [facility] (5 sources) Cephalexin; Translations: [CEPHALEXIN] Drug Allergy 05-07-20 [facility] (3 sources) Penicillins Drug Allergy 05-12-20 10 Unknown [facility] Work Phone: Medications Current Medications Medication Drug Class(es) Dates Sig (Normalized) Sig (Original) anastrozole 1 mg oral tablet (20 sources) Aromatase Inhibitor Start: 09-02-2023 End: 07-29-2025 take 1 tablet by mouth once daily anastrozole (ARIMIDEX) 1 mg tablet Take 1 mg by mouth once daily. Patient takes this at 8pm 09/02/2023 Active CALCIUM CARB-CHOLECALCIFERO L PO (20 sources) [...] Start: 09-19-2022 take 1 tablet by iqra th twice daily carbidopa-levodopa (Sinemet) 25-100 mg tablet Take 1 tablet by mouth 2 times a day. 0 09/19/2022 Active Start: 01-18-2022 take 1 tablet by [...] pm 01/18/2022 Active Start: 01-18-2022 carbidopa-levo dopa (Sinemet) 25-100 MG tablet every 8 hours. 01/18/2022 Active Start: 01-18-2022 carbidopa-levo dopa (SINEMET 25-100) 25-100 mg per tablet Take 1 tablet at 10 am, 3 pm, and 8 pm 0 01/18/2022 Active Comment on above: Take 1 tablet at 10 am, 3 pm, and 8 pm diphenhydrAMINE (8 sources) Histamine-1 Receptor Antagonist diphenhydrAMINE [...] 1 capsule by mouth once daily DULoxetine (CYMBALTA) 20 mg capsule Take 1 capsule (20 mg) by mouth once daily. 01/10/2023 Active Start: 08-18-2018 take 1 capsule by [...] (20 m g) by mouth once daily. famotidine 20 mg oral tablet (2 sources) Histamine-2 Receptor Antagonist take 1 tablet by mouth once daily famotidine (PEPCID) 20 mg tablet Take 20 mg by mouth once daily. Active gabapentin 100 mg oral capsule (2 sources) Anti-epileptic Agent Start: 12-11-19 End: 01-10-20 take 1 capsule by mouth every twelve hours gabapentin (NEURONTIN) 100 mg capsule Take 1 capsule by mouth every 12 hours for 30 days. 12/10/2024 01/09/2025 Active levETIRAcetam 500 mg oral tablet (2 sources) Start: 12-11-19 take 1 tablet by mouth twice daily levETIRAcetam (KEPPRA) 500 mg tablet Take 1 tablet by mouth two times a day. 12/10/2024 Active loratadine 10 mg oral tablet (20 sources) Start: 11-16-19 End: 11-04-19 24 take 1 tablet by mouth once loratadine (CLARITIN) 10 mg tablet Take 1 tablet by mouth every afternoon. 11/15/2022 Active End: 02-03-2023 LORATADINE (CLARITIN ORAL) T flaco by mouth. 0 02/03/2023 Discontinued (Course of therapy completed) LORATADINE (CLAR ITIN ORAL) Take by mouth. 0 Active Comment on above: Take by mouth. Take 1 tablet by iqra th every afternoon. losartan potassium 50 mg oral tablet (2 sources) Angiotensin 2 Receptor Kesha take 1 tablet by mouth once daily losartan (COZAAR) 50 mg tablet Take 50 mg by mouth once daily. Active memantine hydrochloride 10 mg oral tablet (20 sources) F-omweoc-C-aspartate Receptor Antagonist Start: 3 take 1 tablet by mouth once daily [...] mouth in the morning. Active Multivitamin capsule (15 sources) take 1 capsule by mouth once daily Multivitamin capsule Take 1 capsule by mouth once daily. Active take 1 capsule by mouth once pat ly Multivitamin capsule Take 1 capsule by mouth once daily. 0 Active Comment on above: Take 1 capsule by mo uth once daily. ondansetron 8 mg oral tablet (20 sources) Serotonin-3 Receptor Antagonist Start: 3 End: 4 take 1 tablet by mouth every eight hours as needed ondansetron (ZOFRAN) 8 mg tablet Take 8 mg by mouth every 8 hours as needed for nausea/vomiting. 06/12/2023 Active Start: 03-25-2023 End: 05-04-2023 take [...] mouth daily. 10/28/2023 Active polyethylene glycol 3350 96471 mg powder for oral solution (5 sources) Osmotic Laxative Start: 10-28-2023 End: 11-11-2023 polyethylene glycol 3350 17 gram packet Take 17 g by mouth. 10/28/2023 Active predniSONE 20 mg oral tablet (3 sources) Start: 12-11-2024 take 3 tablets by mouth once daily predniSONE (DELTASONE) 20 mg tablet Take 3 tablets by mouth once daily. 12/11/2024 Active Start: 08-12-2023 End: 11-11-2023 predniSONE (Deltasone) 20 mg tablet Indications: Persistent cough for 3 weeks or longer Take 2 tablets daily for 5 days, with food 10 tablet 08/12/2023 11/11/2023 Discontinued (Med List Cleanup) prochlorperazine 10 mg oral tablet (20 sources) Phenothiazine Start: 06-12-2023 End: 02-18-2024 take 1 tablet by mouth every six hours as needed prochlorperazine (COMPAZINE) 10 mg tablet Take 10 mg by mouth every 6 hours as needed for nausea/vomiting. 06/12/2023 Active Start: 03-25-2023 End: 05-24-2023 take [...] of fiber by mouth daily. Active sennosides, jail 8.6 mg oral tablet (5 sources) Start: 10-27-19 End: 11-11-19 senna (SENOKOT) 8.6 mg tab Take 17.2 mg by mouth. 10/27/2023 Active sulfamethoxazole 800 mg / trimethoprim [...] Sig (Original) acetaminophen 325 mg oral tablet (7 sources) Start: 06-24-2023 End: 06-24-2023 650 mg, Oral, Once, On Fri06/24/23 at 0930, For 1 dose, Administer 30 to 60 minutes prior to treatment. Maximum dose of acetaminophen is 4000 mg from all sources in 24 hours. Start: 06-24-2023 End: 06-24-2023 acetaminophen (Tylenol) tabl et 650 mg Start: 04-01-2023 End: 04-01-2023 acetaminophen (Tylenol) tabl et 650 mg take 2 tablets by mo ut every six hours as needed acetaminophen (TYLENOL) 325 mg tablet Take 650 mg by mouth every 6 hours as needed. Active amoxicillin 500 mg oral tablet (20 sources) Penicillin-class Antibacterial End: 08-10-2024 take 1 tablet by mouth in the morning cholecalciferol 0.05 mg oral tablet (4 sources) Vitamin D End: 01-03-2025 cholecalciferol (VITAMIN D3) 50 mcg (2,000 unit) tablet Take 2,000 Units by mouth. 01/03/2025 Discontinued (Erroneous entry) take 1 tablet by mouth once mc y cholecalciferol (Vitamin D-3) 50 MCG (1999 UT) tablet Take 1 tablet (2,000 Units) by mouth once daily. Active dexamethasone 6 mg oral tablet (20 sources) [...] completed) Start: 07-17-2022 take 1 capsule by [facility] once daily Doxycycline Hyclate 50 MG Oral Capsule TAKE 1 CAPSULE DAILY FOR ACNE Quantity: 90 Refills: 0 Ordered: 17-Jul-2022 Marie Devi MD Start : 17-Jul-2022 Active Comment on above: Take 1 capsule (50 m g) by mouth once daily. ferrous sulfate 325 mg delayed release oral tablet (1 source) End: ferrous sulfate 325 mg (65 mg iron) EC tablet Take 325 mg by mouth. 01/03/2025 Discontinued levothyroxine sodium 0.05 mg oral tablet (1 source) l-Thyroxine End: take 1 tablet by mouth once daily before breakfast levothyroxine (UNITHROID) 50 mcg tablet Take 50 mcg by mouth daily before breakfast. 01/03/2025 Discontinued 24 hr metoprolol succinate 50 mg extended release oral tablet (1 source) beta-Adrenergic Kesha End: take 1 tablet by mouth once daily metoprolol succinate ER (TOPROL XL) 50 mg 24 hr tablet Take 50 mg by mouth once daily. 01/03/2025 Discontinued (Erroneous entry) metroNIDAZOLE 0.0075 mg/mg topical gel (18 sources) Nitroimidazole Antimicrobial Start: End: metroNIDAZOLE 0.75 % External Gel APPLY AND [...] Active Comment on above: Take by mouth. 1000 ml sodium chloride 9 mg/ml injection [...] 04-01-2023 sodium chloride 0.9 % infusi on End: 01-03-2025 take 1 g by mouth twice daily sodium chloride 1000 mg soluble tablet Take 1 g by mouth two times a day. 01/03/2025 Discontinued trastuzumab-qyyp (Trazimera) 184.6 mg in sodium chloride [...] accident; Translations: [Cerebral infarction, unspecified] Onset: 0 Resolved: 5 02-05-2023 Chronic Anxiety disorders (20 sources) Mixed [...] (1 source) Dehydration; Translations: [Dehydration] 06-30-2023 Episodic Headache; including migraine (3 sources) Cervicogenic headache; Translations: [Cervicogenic headache] Onset: 5 01-07-2025 Episodic Immunizations and screening for infectious disease [...] pressure; Translations: [Hypotension, unspecified] 06-03-2023 Episodic Other circulatory disease (1 source) History of cerebral hemorrhage; Translations: [Personal history of other diseases of the circulatory system] 01-07-2025 Episodic Other circulatory disease (2 sources) History of cerebrovascular accident; Translations: [Personal history of transient ischemic attack (TIA), and cerebral infarction without residual deficits] Onset: 5 12-04-2024 Episodic Other inflammatory condition of skin (20 [...] Translations: [Obesity, unspecified] Onset: 3 Chronic Other nutritional; endocrine; and metabolic disorders (1 source) Adult failure to thrive; Translations: [Adult failure to thrive] Onset: 5 Episodic Other screening for suspected conditions (not mental disorders or infectious disease) (20 sources) Raised TSH level; Translations: [Patient encounter status] Onset: 3 Resolved: 5 10-29-2022 Episodic Other upper respiratory disease (20 sources) Allergic rhinitis; Translations: [Allergic rhinitis, cause unspecified] Onset: 3 10-29-2022 Chronic Parkinson`s disease (20 sources) Parkinsonism; Translations: [Parkinson's disease] Onset: 3 01-23-2023 Chronic Parkinson`s disease (3 sources) Parkinson`s disease; Translations: [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, without behavioral disturbance, psychotic disturbance, mood disturbance, or anxiety (HCC)] Onset: 5 Residual codes; unclassified (20 sources) Obstructive sleep [...] [Transient alteration of awareness] Onset: 5 Episodic Residual codes; unclassified (1 source) Transient altered mental status; Translations: [Disorientation, unspecified] 01-07-2025 Episodic Systemic lupus erythematosus and connective tissue disorders (3 sources) Other giant cell arteritis; Translations: [Temporal arteritis] Onset: 5 12-07-2024 Chronic Thyroid disorders (5 sources) Thyroid nodule; [...] unspecified (Multi); Translations: [Parkinsonism, unspecified (Multi)] Onset: Past or Other Problems Problem Classification Problem Date Documented Da te Episodic/Chronic Allergic reactions (20 sources) Eczema; Translations: [Contact dermatitis and other eczema, unspecified cause] Onset: 10-29-2022 10-29-2022 Episodic Cancer of uterus (20 sources) H/O: malignant neoplasm; Translations: [Personal history of malignant neoplasm of other parts of uterus] Onset: 07-24-2005 02-05-2023 Episodic Diseases of white blood cells (10 sources) Febrile neutropenia; Translations: [Neutropenia, unspecified] Onset: 06-05-2023 Resolved: 12-10-2024 06-08-2023 Chronic Fever of unknown origin (8 sources) Fever; Translations: [Fever, unspecified] Onset: 06-05-2023 [...] 02-05-2023 Episodic Other aftercare (2 sources) Other chcf (current) drug therapy; Translations: [Other chcf (current) drug therapy] Onset: 09-18-2023 Episodic Other aftercare (2 sources) senior care (current) use of aromatase inhibitors; Translations: [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] Onset: 09-05-2023 [...] Onset: 02-05-2023 Episodic Other nervous system disorders (8 sources) Toxic encephalopathy; Translations: [Toxic encephalopathy] Onset: 10-09-2023 10-09-2023 Episodic Other nutritional; endocrine; and metabolic disorders (8 sources) Adult failure to thrive syndrome; Translations: [Adult failure to thrive] Onset: 06-05-2023 10-09-2023 Episodic Other skin disorders (20 sources) Other seborrheic keratosis; Translations: [Seborrheic keratosis] Onset: 10-29-2022 10-24-2022 Episodic Other skin disorders (20 sources) Loss of hair; Translations: [Alopecia, unspecified] Onset: 10-29-2022 10-29-2022 Episodic Other skin disorders (20 sources) Suspected malignant pigmented skin lesion; Translations: [Disorder of pigmentation, unspecified] Onset: 03-18-2023 10-30-2022 Episodic Pneumonia (except that caused by tuberculosis or sexually transmitted disease) (16 sources) Infective pneumonia; Translations: [Pneumonia, unspecified organism] [...] (ER+)] Onset: 03-18-2023 Episodic Residual codes; unclassified (2 sources) Confusional state; Translations: [Disorientation, unspecified] Onset: 12-03-2024 Resolved: 12-10-2024 12-10-2024 Episodic Residual codes; unclassified (4 sources) Altered mental status; Translations: [Altered mental status, unspecified] Onset: 12-05-2024 Resolved: 12-10-2024 12-10-2024 Episodic Residual codes; unclassified (3 sources) Immunization due; Translations: [Immunization due] Respiratory failure; insufficiency; arrest (adult) (8 sources) Acute respiratory failure; Translations: [Acute respiratory [...] unspecified (Multi); Translations: [Parkinsonism, unspecified (Multi)] Onset: 02-18-2024 Viral infection (9 sources) COVID-19; Translations: [Pneumonia due to other virus not elsewhere classified] Onset: 10-08-2023 10-09-2023 Episodic NEGATED: Highlighted row has not occurred!Residual codes; unclassified (13 sources) Disease Episodic Results Test Name Value Interpretation Reference Range Facility [facility] FLOYDMADIHA Latha ([id number]) 1945 F Date Time Provider Department 01/07/25 [facility] During your visit today, we recorded the following information about you: Jose Murdock 01/07/2025 2:05 PM Signed CV PHONE Name of caller : Stevie Relationship to patient : Daughter If not self Will need patient permission to release results or disclose health information with called documented in . Patient identified by Name and Date of . ( Madiha Perales, 1945). Yes Number to return call [phone] Reason for Call: Patient Question/Update: Patient's daughter calling because since dosage change patient has been way more confused, daughter wondering if it should be once a day or twice a day. Thank you calling [facility] [place]. You will receive a return call within 48 hours ( or 2 business days if close to the weekend). If you feel that this is an urgent issue and needs immediate attention, it is recommended that you contact your primary care provider office or proceed to your nearest Urgent Care Center of Emergency Room ED for evaluation/treatment. Kya Gautam, RN 01/07/2025 2:36 PM Signed Situation: Called and spoke with patient's Daughter, Stevie, to clarify message received. Background: Please see previous documentation within this encounter. Assessment: Daughter informs this RN message is regarding gabapentin. Daughter states, "We met with Sara on Friday and she had said well maybe what we do is start to reduce it to see how she responds to see if it is still needed/not needed." (As opposed to stopping medication altogether). Daughter adds, "On Friday, they took her from 2 (tablets per day) to 1 (tablet per day). Today she is extra sleepy, refusing to take meds, hallucinating, exhibiting really unusual behavior we don't see ever." Daughter asks, Should she be put back on full dosage she was put on in hospital, or is this normal/expected with dose reduction?" Recommendation: Encounter routed to provider for review. Kya Gautam RN 01/07/2025 3:38 PM Signed Situation: Called and spoke with Daughter. Background: Per message received from ALLI Ramey: I don't think that's related to the gabapentin being tapered, the dosage is so small, unless it was helping protect her from seizures. They can go back to her prior dose to make sure but she likely needs infectious workup or going to ED if providers at her SNF are noticing a dramatic change". Assessment: Read Daughter ALLI Ramey's message. Daughter responded, Ok, so, there's one more doctor call that is outstanding around another med (Daughter would like to hear back from). They (SNF) don't think it's a UTI. So, she (ALLI Ramey) is suggesting just keep the dose the same and go to ED?" This RN responded, clarifying, while ALLI Ramey does not think symptoms are related to gabapentin frequency decrease, she does state "can go back to her prior dose to make sure", in other words, return to twice daily frequency to determine if her symptoms improve. Daughter verbalized understanding. This RN then reiterated ALLI Ramey's concern that symptoms may likely be more related to possible infection, for example, and that proceeding to Emergency for evaluation should be a consideration, as well. Daughter verbalized understanding. After further discussion, including informing Daughter of ALLI Ramey's note from [facility] 01/03/2025 ("Can consider tapering off gabapentin in the future if headaches improved. Consider headache clinic referral if worsening. Continue gabapentin 100mg BID for now."), Daughter surprised and unsure why patient was tapered / who initiated taper. This RN reviewed After Visit Summary, which does not include this note regarding possible future gabapentin taper, and only notes gabapentin in med list - still as twice daily frequency. Daughter appreciative of help and stated she would connect with SNF to determine how frequency change happened, inform to return to twice daily frequency, and inform to consider ED for infection evaluation. Daughter denied further questions. Recommendation: Encounter routed to provider for her information. Allergies As of Date: 01/07/2025 Noted Allergy Reaction ALENDRONIC ACID 05/07/2010 16 - Unknown ASA (SALICYLATES) 05/07/2010 16 - Unknown CEPHALEXIN 05/07/2010 16 - Unknown LYRICA (PREGABALIN) 05/07/2010 16 - Unknown MRI CONTRAST (IODINE) 06/05/2023 4 - Hives Comments: Hives x 5 locations, redness of right eye. NICKEL 05/07/2010 16 - Unknown PENICILLINS 05/12/2010 16 - Unknown Date Reviewed: 01/03/2025 Reviewed by: Cathy Salazar LPN - Fully Assessed Reason for Visit: Patient Update [1234] Prescriptions as of 01/07/2025 - famotidine (PEPCID) 20 mg tablet Take 20 mg by mouth once mc (more content not included)... Normal [facility] CNOVon 01-03-2025 CNOV Office Visit ([facility] ) MADIHA PERALES ([id number]) 1945 F Date Time Provider Department 01/03/25 10:30 AM SARA RAMEY [facility] During your visit today, we recorded the following information about you: Pulse Respiration Blood pressure Weight 76/minute 16/minute 103/71 93.4 kg Sara Ramey APRN.GRANT ADMINISTRATOR 01/07/2025 9:07 AM Signed [facility] Established Visit Consultation is requested by: Racheal De La Rosa [address] [facility] [id number] PCP: Marie Devi [address] [place] [address] CEREBROVASCULAR HISTORY Madiha Perales is a 79 year old female presenting for hospital discharge follow up. Admitted to [place] 12/03-12/10/24. From discharge summary Patient at baseline Parkinson disease, she was [...] experiencing any more concerns or worsening symptoms. Reason for Visit: spells of neurologic dysfunction Date of Last Event: 12/03/2024 Residual Deficits: Cognitive impairments Current PT/OT/ST: Physical therapy at home, Occupational therapy at home and Speech therapy at home Current Living Situation: Still in a rehab facility Office Visit 01/03/25 -presents for hospital discharge follow up with her , daughter, and son -denies any new stroke-like symptoms or clinical events -back to her baseline -day of event: per she was awake and alert but not responding to him, he was trying to get her in the car for something and had a hard time, took her to the ED. Per daughter, once she arrived the patient seemed lethargic but perked up after receiving IV fluids. Once on the floor, mental status seemed to decline once more, then improved again after IV fluids -they report they've had ongoing difficulty getting her to drink fluids on her own, have tried many different kinds of electrolyte drinks. They are currently doing electrolyte jello -gets therapy at [facility] -she has fluctuating mental status and physical capabilities -in hospital was started on Keppra due to potential epileptogenicity on EEG -needs to see Epilepsy clinic -overall happy disposition -denies any side effects to keppra including drowsiness, dizziness, irritability -has only complained of one headache since discharge -taking gabapentin BID -no GCA on temporal artery biopsy -follows with a Neurologist at [facility] PAST MEDICAL HISTORY Diagnosis Date Anemia Anxiety [...] Mother other (htn [Other]) Mother other (hyperlipidemia [ (more content not included)... Normal [facility] CBC-Complete Blood Cnt No Di ffon 12-14-2024 Erythrocyte distribution width (RBC) [Ratio] 13.9 % Normal 11.6-14.6 [facility] Comment on above: Order Comment: 209.1 Performed By: #### L 100.6710 #### [facility] [place], [address] Hematocrit (Bld) [Volume fraction] 39.7 % Normal 37-47 [facility] Comment on above: Order Comment: 209.1 Performed By: #### L 100.0500 #### [facility] [address] [place], [address] Hemoglobin (Bld) [Mass/Vol] 13.3 g/dL Normal 12.0-15.0 [facility] Comment on above: Order Comment: .1 Performed By: #### L 100.0500 #### [facility] [address] [place], [address] MCH (RBC) [Entitic mass] 31.1 pg Normal 27.0-32.0 [facility] Comment on above: Order Comment: .1 Performed By: #### L 100.0500 #### [facility] [address] [place], [address] MCHC (RBC) [Mass/Vol] 33.5 g/dL Normal 32-36 [facility] Comment on above: Order Comment: .1 Performed By: #### L 100.0500 #### [facility] [address] [place], [address] MCV (RBC) [Entitic vol] 93.0 fL Normal 81-99 [facility] Comment on above: Order Comment: .1 Performed By: #### L 100.0500 #### [facility] [address] [place], [address] Platelet mean volume (Bld) [Entitic vol] 10.3 fL Normal 6.2-12.0 [facility] Comment on above: Order Comment: .1 Performed By: #### L 100.0500 #### [facility] [address] [place], [address] Platelets (Bld) [#/Vol] 268 10*3/uL Normal 150-450 [facility] Comment on above: Order Comment: 209.1 Performed By: #### L 100.0500 #### [facility] [address] [place], [address] RBC (Bld) [#/Vol] 4.27 10*6/uL Normal 4.2-5.4 [facility] Comment on above: Order Comment: .1 Performed By: #### L 100.0500 #### [facility] [address] [place], [address] RDW SD 47.1 fl High 35.1-43.9 [facility] Comment on above: Order Comment: . Performed By: #### L 100.0500 #### [facility] [address] [place], [address] WBC (Bld) [#/Vol] 10.9 10*3/uL Normal 4.4-11.0 [facility] Comment on above: Order Comment: . Performed By: #### L 100.0500 #### [facility] [address] [place], [address] Basic Metabolic Profile (BMP )on 12-13-2024 BUN/CRE 26.3 RATIO High 10-20 [facility] Comment on above: Order Comment: . Performed By: #### L 100.0500, L500.2500 #### [facility] [address] [place], [address] Calcium [Mass/Vol] 8.7 mg/dL Normal 7.6-11.0 [facility] Comment on above: Order Comment: . Performed By: #### L 100.0500, L500.2500 #### [facility] [address] [place], [address] Chloride [Moles/Vol] 103 mmol/L Normal 98-108 [facility] Comment on above: Order Comment: .1 Performed By: #### L 100.0500, L500.2500 #### [facility] [address] [place], [address] CO2 [Moles/Vol] 26.0 mmol/L Normal 21.0-32.0 [facility] Comment on above: Order Comment: . Performed By: #### L 100.0500, L500.2500 #### [facility] [address] [place], [address] Creatinine [Mass/Vol] 0.69 mg/dL Low 0.70-1.20 [facility] Comment on above: Order Comment: . Performed By: #### L 100.0500, L500.2500 #### [facility] [address] [place], [address] GAP 10 Normal 5-15 [facility] Comment on above: Order Comment: . Performed By: #### L 100.0500, L500.2500 #### [facility] [address] [place], [address] GFR/1.73 sq M.predicted among non-blacks MDRD (S/P/Bld) [Vol rate/Area] 89 mL/min/{1.73_m2} Normal >60 [facility] Comment on above: Order Comment: . Result Comment: mL/m in/1.73m2 CKD-EPI Creatinine Equation (2020) Performed By: #### L 100.0500, L500.2500 #### [facility] [address] [place], [address] Glucose [Mass/Vol] 84 mg/dL Normal 70-99 [facility] Comment on above: Order Comment: . Performed By: #### L 100.0500, L500.2500 #### [facility] [address] [place], [address] Potassium [Moles/Vol] 4.3 mmol/L Normal 3.3-5.1 [facility] Comment on above: Order Comment: 209.1 Performed By: #### L 100.0500, L500.2500 #### [facility] [address] [place], [address] Sodium [Moles/Vol] 140 mmol/L Normal 133-145 [facility] Comment on above: Order Comment: .1 Performed By: #### L 100.0500, L500.2500 #### [facility] [address] [place], [address] Urea nitrogen [Mass/Vol] 18 mg/dL Normal 4-19 [facility] Comment on above: Order Comment: . Performed By: #### L 100.0500, L500.2500 #### [facility] [address] [place], [address] CBC-Complete Blood Cnt No Di ffon 12-13-2024 HCT Normal 37-47 [facility] Comment on above: Order Comment: 209.1 Result Comment: This specimen has been REJECTED due to Laboratory criteria: Quanity Not Sufficient. LAB has been notified of need of recollection. 12/13/24 0853 Annie Mendez Performed By: #### L 100.0500, L500.2500 #### [facility] [address] [place], [address] HGB Normal 12.0-15.0 [facility] Comment on above: Order Comment: 209.1 Result Comment: This specimen has been REJECTED due to Laboratory criteria: Quanity Not Sufficient. LAB has been notified of need of recollection. 12/13/24 0853 Annie Mendez Performed By: #### L 100.0500, L500.2500 #### [facility] [address] [place], [address] MCH Normal 27.0-32.0 [facility] Comment on above: Order Comment: 209.1 Result Comment: This specimen has been REJECTED due to Laboratory criteria: Quanity Not Sufficient. LAB has been notified of need of recollection. 12/13/2453 Annie Mendez Performed By: #### L 100.0500, L500.2500 #### [facility] [address] [place], [address] MCHC Normal 32-36 [facility] Comment on above: Order Comment: 209.1 Result Comment: This specimen has been REJECTED due to Laboratory criteria: Quanity Not Sufficient. LAB has been notified of need of recollection. 12/13/2453 Annie Mendez Performed By: #### L 100.0500, L500.2500 #### [facility] [address] [place], [address] MCV Normal 81-99 [facility] Comment on above: Order Comment: 209.1 Result Comment: This specimen has been REJECTED due to Laboratory criteria: Quanity Not Sufficient. LAB has been notified of need of recollection. 12/13/2453 Annie Mendez Performed By: #### L 100.0500, L500.2500 #### [facility] [address] [place], [address] PLT Normal 150-450 [facility] Comment on above: Order Comment: 209.1 Result Comment: This specimen has been REJECTED due to Laboratory criteria: Quanity Not Sufficient. LAB has been notified of need of recollection. 12/13/2453 Annie Mendez Performed By: #### L 100.0500, L500.2500 #### [facility] [address] [place], [address] RBC Normal 4.2-5.4 [facility] Comment on above: Order Comment: 209.1 Result Comment: This specimen has been REJECTED due to Laboratory criteria: Quanity Not Sufficient. LAB has been notified of need of recollection. 12/13/24852 Annie Mendez Performed By: #### L 100.0500, L500.2500 #### [facility] [address] [place], [address] RDW CV Normal 11.6-14.6 [facility] Comment on above: Order Comment: 209.1 Result Comment: This specimen has been REJECTED due to Laboratory criteria: Quanity Not Sufficient. LAB has been notified of need of recollection. 12/13/24 0853 Annie Mendez Performed By: #### L 100.0500, L500.2500 #### [facility] [address] [place], [address] RDW SD Normal 35.1-43.9 [facility] Comment on above: Order Comment: 209.1 Result Comment: This specimen has been REJECTED due to Laboratory criteria: Quanity Not Sufficient. LAB has been notified of need of recollection. 12/13/24 0853 Annie Mendez Performed By: #### L 100.0500, L500.2500 #### [facility] [address] [place], [address] WBC Normal 4.4-11.0 [facility] Comment on above: Order Comment: 209.1 Result Comment: This specimen has been REJECTED due to Laboratory criteria: Quanity Not Sufficient. LAB has been notified of need of recollection. 12/13/24 0853 Annie Mendez Performed By: #### L 100.0500, L500.2500 #### [facility] [address] [place], [address] ANES POSTPROC EVALon 12-10- 025 ANES POSTPROC EVAL HNO ID: [id number] Author: PUMA MADRIGAL MD Service: Anesthesiology Author Type: Anesthesiologist Type: Anesthesia Postprocedure Evaluation Filed: 12/10/2024 08:02 Note Text: POST ANESTHESIA EVALUATION NOTE : 1945 Procedure Summary Date: 12/09/24 Room / Location: [place] OR02 / [place] Anesthesia Start: 1451 Anesthesia Stop: 1602 [...] December 10, 2024 TIME: 8:01 AM CSN: [id number] Normal [place] Basic metabolic 2000 panelon 12-10-2024 Anion gap [Moles/Vol] 8 mmol/L Normal 8-15 [facility] Comment on above: Order Comment: Speci men Type: BLOOD SPECIMENOrdering Facility: [facility] Address: [address] [place] [address] Performed By: #### 2 4321-2 ####[facility] [id number] [place] [address] [place] Calcium [Mass/Vol] 8.9 mg/dL Normal 8.5-10.2 [facility] Comment on above: Order Comment: Speci men Type: BLOOD SPECIMENOrdering Facility: [facility] Address: [address] [place] [address] Performed By: #### 2 4321-2 ####[facility]ORY[facility] [id number] [place] [id number] [place] Chloride [Moles/Vol] 104 mmol/L Normal 98-107 [facility] Comment on above: Order Comment: Speci men Type: BLOOD SPECIMENOrdering Facility: [facility] Address: [address] [place] [address] Performed By: #### 2 4321-2 ####[facility]ORYCL[facility] [id number] [place] [address] [place] CO2 [Moles/Vol] 30 mmol/L Normal 22-30 [facility] Comment on above: Order Comment: Speci men Type: BLOOD SPECIMENOrdering Facility: [facility] Address: [address] [place] [address] Performed By: #### 2 4321-2 ####[facility]ORYCL[facility] [id number] [place] [address] [place] Creatinine [Mass/Vol] 0.74 mg/dL Normal 0.58-0.96 [facility] Comment on above: Order Comment: Speci men Type: BLOOD SPECIMENOrdering Facility: [facility] Address: [address] [place] [address] Performed By: #### 2 4321-2 ####[facility]ATORYCLIA [id number] [address] Creatinine and Glomerular filtration rate.predicted panel (S/P/Bld) 83 mL/min/1.73m??? Normal >=60 [facility] Comment on above: Order Comment: Speci men Type: BLOOD SPECIMENOrdering Facility: [facility] Address: [address] [place] [address] Result Comment: Matoe mated Glomerular Filtration Rate (eGFR) is calculated [...] Performed By: #### 2 4321-2 ####[facility]ATORYCLIA [id number] [address] [place] Glucose [Mass/Vol] 91 mg/dL Normal 74-99 [facility] Comment on above: Order Comment: Yoav lujan Type: BLOOD SPECIMENOrdering Facility: [facility] Address: [address] [place] [address] Result Comment: The [place] [employer] Association (ADA) provides guidance for cutoff [...] Standards of Medical Care in Diabetes 2016, [place] [employer]. Diabetes Care. 2016.39(Suppl 1). Performed By: #### 2 4321-2 ####[facility]ATORYCLIA [id number] [place] [address] [place] Potassium [Moles/Vol] 4.5 mmol/L Normal 3.7-5.1 [facility] Comment on above: Order Comment: Yoav lujan Type: BLOOD SPECIMENOrdering Facility: [facility] Address: [address] [place] [address] Performed By: #### 2 4321-2 ####[facility]ATORYCLIA [id number] [place] [address] [place] Sodium [Moles/Vol] 142 mmol/L Normal 136-144 [place] Comment on above: Order Comment: Yoav lujan Type: BLOOD SPECIMENOrdering Facility: [facility] Address: [address] [place] [address] Performed By: #### 2 4321-2 ####[facility]ATORYCLIA [id number] [place] [address] [place] Urea nitrogen [Mass/Vol] 19 mg/dL Normal 7-21 [facility] Comment on above: Order Comment: Yoav lujan Type: BLOOD SPECIMENOrdering Facility: [facility] Address: [address] [place] [address] Performed By: #### 2 4321-2 ####[facility]ATORYCLIA [id number] [place] [address] [place] CBC W Auto Differential pane l (Bld)on 12-10-2024 Basophils (Bld) [#/Vol] 10*3/uL Normal <0.11 M [facility] Comment on above: Order Comment: Speci men Type: BLOOD SPECIMENOrdering Facility: [facility] Address: [address] [place] [address] Performed By: #### 5 7021-8 ####[facility]ORATORYCLIA [id number] [place] [address] [place] Basophils/100 WBC (Bld) 0.0 % Normal [facility] Comment on above: Order Comment: Speci men Type: BLOOD SPECIMENOrdering Facility: [facility] Address: [address] [place] [address] Performed By: #### 5 7021-8 ####[facility]ATORYCLIA [id number] [place] [address] [place] Differential cell count method Nom (Bld) Auto Normal [facility] Comment on above: Order Comment: Speci men Type: BLOOD SPECIMENOrdering Facility: [facility] Address: [address] [place] [address] Performed By: #### 5 7021-8 ####[facility]ATORYCLIA [id number] [place] [address] [place] Eosinophils (Bld) [#/Vol] 10*3/uL Normal <0.46 [facility] Comment on above: Order Comment: Speci men Type: BLOOD SPECIMENOrdering Facility: [facility] Address: [address] [place] [address] Performed By: #### 5 7021-8 ####[facility]ATORYCLIA [id number] [place] [address] [place] Eosinophils/100 WBC (Bld) 0.1 % Normal [facility] Comment on above: Order Comment: Speci men Type: BLOOD SPECIMENOrdering Facility: [facility] Address: [address] [place] [address] Performed By: #### 5 7021-8 ####[facility]ATORYCLIA [id number] [place] [address] [place] Erythrocyte distribution width (RBC) [Ratio] 13.5 % Normal 11.5-15.0 [facility] Comment on above: Order Comment: Speci men Type: BLOOD SPECIMENOrdering Facility: [facility] Address: [facility] [place] [address] Performed By: #### 5 7021-8 ####[facility]ATORYCLIA [id number] [address] OF [place] Hematocrit (Bld) [Volume fraction] 38.6 % Normal 36.0-46.0 [facility] Comment on above: Order Comment: Speci men Type: BLOOD SPECIMENOrdering Facility: [facility] Address: [address] [place] [address] Performed By: #### 5 7021-8 ####[facility]ATORYCLIA [id number] [place] [address] [place] Hemoglobin (Bld) [Mass/Vol] 12.6 g/dL Normal 11.5-15.5 [facility] Comment on above: Order Comment: Speci men Type: BLOOD SPECIMENOrdering Facility: [facility] Address: [address] [place] [address] Performed By: #### 5 7021-8 ####[facility]ATORYCLIA [id number] [address] [place] Immature granulocytes (Bld) [#/Vol] 0.07 10*3/uL Normal <0.10 [facility] Comment on above: Order Comment: Speci men Type: BLOOD SPECIMENOrdering Facility: [facility] Address: [address] [place] [address] [place] [address] Performed By: #### 5 7021-8 ####[facility]ATORYCLIA [id number] [address] OF [place]ED Immature granulocytes/100 WBC (Bld) 0.7 % Normal [facility] Comment on above: Order Comment: Speci men Type: BLOOD SPECIMENOrdering Facility: [facility] Address: [address] [place] [address] [place] [address] Performed By: #### 5 7021-8 ####[facility]ATORYCLIA [id number] [address] [place] Lymphocytes (Bld) [#/Vol] 1.36 10*3/uL Normal 1.00-4.00 [place] Comment on above: Order Comment: Speci men Type: BLOOD SPECIMENOrdering Facility: [facility] Address: [address] [place] [address] Performed By: #### 5 7021-8 ####[facility]ORATORYCLIA [id number] [address] Lymphocytes/100 WBC (Bld) 14.4 % Normal [place] Comment on above: Order Comment: Speci men Type: BLOOD SPECIMENOrdering Facility: [facility] Address: [address] [place] [address] Performed By: #### 5 7021-8 ####[facility]ATORYCLIA [id number] [address] MCH (RBC) [Entitic mass] 30.5 pg Normal 26.0-34.0 [place] Comment on above: Order Comment: Speci men Type: BLOOD SPECIMENOrdering Facility: [facility] Address: [address] [place] [address] Performed By: #### 5 7021-8 ####[facility]ATORYCLIA [id number] [address] [place] MCHC (RBC) [Mass/Vol] 32.6 g/dL Normal 30.5-36.0 [facility] Comment on above: Order Comment: Speci men Type: BLOOD SPECIMENOrdering Facility: [facility] Address: [address] [place] [address] Performed By: #### 5 7021-8 ####[facility]ATORYCLIA [id number] [address] MCV (RBC) [Entitic vol] 93.5 fL Normal 80.0-100.0 M [facility] Comment on above: Order Comment: Speci men Type: BLOOD SPECIMENOrdering Facility: [facility] Address: [address] [place] [address] Performed By: #### 5 7021-8 ####[facility]ATORYCLIA [id number] [address] Monocytes (Bld) [#/Vol] 0.62 10*3/uL Normal <0.87 [facility] Comment on above: Order Comment: Speci men Type: BLOOD SPECIMENOrdering Facility: [facility] Address: [address] [place] [address] Performed By: #### 5 7021-8 ####[facility]ATORYCLIA [id number] [place] [address] [place] Monocytes/100 WBC (Bld) 6.6 % Normal [facility] Comment on above: Order Comment: Speci men Type: BLOOD SPECIMENOrdering Facility: [facility] Address: [address] [place] [address] Performed By: #### 5 7021-8 ####[facility]ATORYCLIA [id number] [place] [address] [place] Neutrophils (Bld) [#/Vol] 7.38 10*3/uL Normal 1.45-7.50 [facility] Comment on above: Order Comment: Speci men Type: BLOOD SPECIMENOrdering Facility: [facility] Address: [address] [place] [address] Performed By: #### 5 7021-8 ####[facility]ATORYCLIA [id number] [place] [address] [place] Neutrophils/100 WBC (Bld) 78.2 % Normal [facility] Comment on above: Order Comment: Speci men Type: BLOOD SPECIMENOrdering Facility: [facility] Address: [address] [place] [address] Performed By: #### 5 7021-8 ####[facility]ORATORYCLIA [id number] [place] [address] [place] Nucleated RBC (Bld) [#/Vol] 10*3/uL Normal <0.01 [facility] Comment on above: Order Comment: Speci men Type: BLOOD SPECIMENOrdering Facility: [facility] Address: [address] [place] [address] Performed By: #### 5 7021-8 ####[facility]ORATORYCLIA [id number] [place] [address] [place] Nucleated RBC/100 WBC (Bld) [Ratio] 0.0 /100 WBC Normal [facility] Comment on above: Order Comment: Speci men Type: BLOOD SPECIMENOrdering Facility: [facility] Address: [address] [place] [address] Performed By: #### 5 7021-8 ####[facility]ATORYCLIA [id number] [address] [place] Platelet mean volume (Bld) [Entitic vol] 9.9 fL Normal 9.0-12.7 [facility] Comment on above: Order Comment: Speci men Type: BLOOD SPECIMENOrdering Facility: [facility] Address: [address] [place] [address] Performed By: #### 5 7021-8 ####[facility]ORATORYCLIA [id number] [place] [address] [place] Platelets (Bld) [#/Vol] 239 10*3/uL Normal 150-400 [place] Comment on above: Order Comment: Speci men Type: BLOOD SPECIMENOrdering Facility: [facility] Address: [address] [place] [address] Performed By: #### 5 7021-8 ####[facility]ATORYCLIA [id number] [place] [address] [place] RBC (Bld) [#/Vol] 4.13 10*6/uL Normal 3.90-5.20 [facility] Comment on above: Order Comment: Speci men Type: BLOOD SPECIMENOrdering Facility: [facility] Address: [address] [place] [address] Performed By: #### 5 7021-8 ####[facility]ATORYCLIA [id number] [address] [place] WBC (Bld) [#/Vol] 9.44 10*3/uL Normal 3.70-11.00 [facility] Comment on above: Order Comment: Speci men Type: BLOOD SPECIMENOrdering Facility: [facility] Address: [address] [place] [address] Performed By: #### 5 7021-8 ####[facility] LABORATORYCLIA [id number] [address] [facility] CNDSon 12-10-2024 CNDS HNO ID: [id number] Author: SHAW KINSEY MD Service: Hospital Medicine [...] [place] MEDICATION CHANGES: See below REASON FOR HOSPITALIZATION/PRINC IPAL DIAGNOSES: Change mental status HOSPITAL PROBLEMS: Principal [...] at bedside, (more content not included)... [place] CONSULT PROGon 12-10-2024 CONSULT PROG HNO ID: [id number] Author: GREG AGEE JR, MD Service: Neurology General Author Type: Physician Type: Consult Progress Note Filed: 12/10/2024 18:32 Note Text: TELENEUROLOGY CONSULT PROGRESS NOTE The Teleneurologist or RONNIE is available from 8 am to 5 pm on weekdays. On weekends, at [place] and [place], the Teleneurologist or RONNIE is available from 8 am to 5 pm, [facility] 8 am to 12 pm, [place] 1 pm to 5 pm, [place] 8 am to 12 pm, [place] 1 pm to 5 pm. Statutory holidays do not have teleneuro coverage. [place] : During Off hours for Teleneurology please page (not call) [place] [facility] [phone] clinical science consultant for concerns. [place]: During Off hours for Teleneurology please page (not call) [place] [facility] [phone] clinical science consultant for concerns. [facility]: There is no off-hours coverage for [...] date. Examination was completed by Teleneurology video ([employer] system) assisted by Teleneurology (more content not included)... Normal [place] Magnesium SerPl-ncon 12-10 Magnesium [Mass/Vol] 2.2 mg/dL Normal 1.7-2.3 [facility] Comment on above: Order Comment: Speci men Type: BLOOD SPECIMENOrdering Facility: [facility] Address: [address] [place] [address] Performed By: #### 1 9123-9 ####[facility]ORATORYCLIA [id number] [place] [address] [facility] ALLIED HEALTHon 12-09-2024 ALLIED HEALTH HNO ID: [id number] Author: LILIAN SHAW CT Service: Radiology Author [...] PATIENT PRESENTS WITH AN IMPLANTABLE OR ATTACHED SUGAR REFINERY SUPERVISOR: No RADIOLOGY DEPARTMENT: MR; Exam(s) Completed: Head: Sagittal Sinus MRV. Aromatherapy Administered: No PERIPHERAL IV DATA: Not applicable SIGNED BY: PAULA PATTERSON SR. CONSULTANT December 09, 2024 2:18 PM [facility] ANES PRE-OPon 12-09-2024 [facility] PRE-OP HNO ID: [id number] Author: REED COON MD Service: Anesthesiology Author Type: Anesthesiologist Type: Anesthesia Preprocedure Evaluation Filed: 12/09/2024 14:35 Note Text: ANESTHESIOLOGY DAY OF SURGERY NOTE : 1945 Procedure Information Date/Time: 12/09/24 1515 Procedure: BIOPSY ARTERY TEMPORAL (Right: Temporal) Location: [place] OR02 / [place] Surgeons: Torrie Choi MD Estimated body mass index is 33.31 kg/m? as calculated from the following: Height as of this encounter: 167.6 cm (5' 6"). Weight as of this encounter: 93.6 kg (206 lb 5.6 oz). Most recent hematocrit and potassium results: Hematocrit 40.2 12/08/2024 Potassium 4.7 12/08/2024 Relevant Problems ANESTHESIA (+) MARCY on CPAP CARDIO (+) Temporal arteritis (HCC) NEURO-PSYCH (+) History of stroke (+) History of uterine cancer (+) Nonintractable headache (+) Stroke (HCC) PULMONARY (+) HCAP (healthcare-associate d pneumonia) (+) MARCY on CPAP (+) Pneumonia [...] and consent discussed: yes. Patient / Responsible Alliance Party agrees to proceed: yes Patient / [...] data found for the desired time range. Facility-Administered Medications as of 12/09/2024 Medication Dose Route [...] December 09, 2024 TIME: 2:35 PM CSN: [id number] [facility] BRIEF OP NOTon 12-09-2024 BRIEF OP NOT HNO ID: [id number] Author: TORRIE CHOI MD Service: General Surgery Author Type: Physician Type: Brief Op Note Filed: 12/09/2024 16:05 Note Text: BRIEF OPERATIVE / PROCEDURE NOTE LOG ID: [id number] SURGERY/PROCEDURE DATE: 12/09/2024 INCISION/PROCEDURE START TIME: 3:16 PM INCISION CLOSE/PROCEDURE END TIME: 3:48 PM SURGEON(S)/PROCEDURAL IST(S) AND DECORATING KILN OPERATOR(S): Surgeons and Role: * Torrie Choi MD - Primary Physician Clerk Television Production: No Diaz PA-C SURGERY/PROCEDURE(S): Right temporal artery biopsy ANESTHESIA: Monitored Anesthesia Care FINDINGS: see report ESTIMATED BLOOD LOSS: 20 ml SPECIMENS: 1 COMPLICATIONS: None CLOSURE TECHNIQUE: Primary PRE-OP/PRE-PROCEDURE DIAGNOSIS: headache POST-OP/POST-PROCEDUR E DIAGNOSIS: Same as Preop # [id number] SIGNATURE: Torrie Choi MD PATIENT NAME: Madiha Perales DATE: December 09, 2024 TIME: 4:01 PM [facility] MRV BRAIN WO IVCONon 025 MRV BRAIN WO IVCON * * *Final Report* * * DATE OF EXAM: Dec 09 2024 2:29PM [facility] 0335 - MRV BRAIN WO IVCON / PROCEDURE REASON: Headache, uncomplicated (Ped 0-18y) * * * * Physician Interpretation * * * * EXAMINATION: MRV BRAIN WO IVCON CLINICAL HISTORY: Headache TECHNIQUE: 3D kgbk-px-kxqzxp MRV with post-processing performed at the modality [...] significant focal narrowing or intraluminal filling defects. 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: PSCB Transcribe Date/Time: Dec 09 2024 2:38P Dictated by : CELI HADDAD MD This examination was interpreted and the report reviewed and electronically signed by: CELI HADDAD MD on Dec 09 2024 2:45PM EST [id number] Normal [place] OPERATIVE NOon 12-09-2024 OPERATIVE NO HNO ID: [id number] Author: TORRIE CHOI MD Service: General Surgery Author Type: Physician Type: Operative Report Filed: 12/09/2024 16:44 Note Text: [facility] - Operative Report MADIHA PERALES : 1945 AGE: 79. SEX: F PATIENT TYPE: I HOSP SVC: Medical LOCATION: [facility] ATTENDING PHYSICIAN: SHAW KINSEY [facility] NUMBER: [id number] DATE OF SURGERY/PROCEDURE: 12/09/2024 INCISION/PROCEDURE START TIME: 3:16 p.m. INCISION CLOSE/PROCEDURE END TIME: 3:48 p.m. PREOPERATIVE DIAGNOSIS: Headaches. POSTOPERATIVE DIAGNOSIS: Headaches. SURGEON: Torrie Choi M.D. DECORATING KILN OPERATOR: SREEDHAR Nathan. SURGERY/PROCEDURE: Right temporal artery biopsy. [...] qualified residents or follow staff available. The senior executive assistant's tasks including retraction, hemostasis, and assistance [...] room in good condition. Torrie Choi M.D. KED:[id number] /[id number] [facility] Pathology biopsy report Phil (Tiss)on 12-09-2024 AP DISCLAIMER Normal [place] Comment on above: Order Comment: Speci men Type: TISSUE SPECIMENOrdering Facility: [facility] Address: [address] [place] [address] Result Comment: Liliana glasgow Developed Test (LDT) Disclaimer: Performance characteristics of immunohistochemical, immunofluorescent, and chromogenic in-situ hybridization tests have been determined by the performing laboratory within [facility] Pathology and Laboratory Medicine Department ([facility], [facility], [facility], [facility], [facility], On License Of [facility], or [facility]) in a manner consistent with CLIA requirements. One or more of these tests may not have been cleared or approved by the FDA. RT-PLM is regulated under CLIA as qualified to perform high-complexity testing. These tests are used for clinical purposes. These should not be regarded as investigational or for research. Positive and negative controls stain appropriately. Performed By: #### 6 6121-5 ####[facility] LABCLIA [id number] [place] [address] [place] CASE REPORT [place] Comment on above: Order Comment: Speci men Type: TISSUE SPECIMENOrdering Facility: [facility] Address: [address] [place] [address] Result Comment: Surg ical Pathology Report Case: [id number] Authorizing Provider: Torrie Choi MD Collected: 12/09/2024 03:17 PM Ordering Location: [place] [facility] Received: 12/10/2024 08:08 AM Pathologist: Johnathon Vasquez MD, PhD Specimen: Artery, Temporal, Biopsy, right temporal artery biopsy Performed By: #### 6 6121-5 ####[facility] LABCLIA [id number] [address] [address] [place] CLINICAL HISTORY [facility] Comment on above: Order Comment: Speci men Type: TISSUE SPECIMENOrdering Facility: [facility] Address: [address] [place] [address] Result Comment: Pre- op diagnosis: 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 A Movat stain was performed to assess the vascular architecture with adequate control. A Movat stain shows a segment of muscular type artery with 60% fragmentation of the internal elastic lamina. There is mild intimal hyperplasia with less than 20% luminal stenosis. There are no inflammatory infiltrates noted in the intima, media, or adventitia. The media shows no evidence of neovascularization or scars. There is no evidence of active or healed arteritis in this biopsy. [facility] Comment on above: Order Comment: Speci men Type: TISSUE SPECIMENOrdering Facility: [facility] Address: [address] [place] [address] Performed By: #### 6 6121-5 ####[facility] LABCLIA [id number] [address] FINAL DIAGNOSIS [facility] Comment on above: Order Comment: Speci men Type: TISSUE SPECIMENOrdering Facility: [facility] Address: [address] [place] [address] Result Comment: A. R ight temporal artery, biopsy: - Negative for arteritis. at 1524 EDT Performed By: #### 6 6121-5 ####[facility] LABCLIA [id number] [address] [address] [facility] FINAL PERFORMING LAB [facility] Comment on above: Order Comment: Speci men Type: TISSUE SPECIMENOrdering Facility: [facility] Address: [address] [place] [address] Result Comment: Diag nostic interpretation performed at: [facility], [address] [place] [address] CLIA# [id number] Body And Fender Mechanic: Magdaleno Cano MD Performed By: #### 6 6121-5 ####[facility]PITALIA [id number] [place] [address] [place] GROSS DESCRIPTION [facility] Comment on above: Order Comment: Speci men Type: TISSUE SPECIMENOrdering Facility: [facility] Address: [address] [place] [address] Result Comment: A. Zoe rtery, Temporal, Biopsy Received in formalin is one segment of cylindrical tissue measuring 2.5 x 0.3 x 0.3 cm, red-brown and of a soft and fibrous consistency. Totally submitted in one cassette. MRV December 10, 2024 12:19 PM Gross examination performed at [facility], [address] [place] [address] Performed By: #### 6 6121-5 ####[facility] [id number] [address] [place] THERAPY NTon 12-09-2024 THERAPY NT HNO ID: [id number] Author: LOBITO CAVAZOS PT Service: Physical Therapy Author Type: Physical Therapist Type: Therapy (PT/OT/Speech/Resp) Filed: 12/09/2024 13:48 Note Text: Summary: PT treatment Physical Therapy Treatment Summary SERVICE DATE: 12/09/2024 SERVICE TIME: 1140 to 1219 ROOM: [id number] PT 6 Clicks Score: 13 DISCHARGE RECOMMENDATIONS [...] toilet. Spouse assists with toilet transfer at [facility], spouse completes hygiene, some incontinent epsidoes Pt spends all day in lift chair when not at daycare and spouse helps her out. Spouse reports 4 falls in past 6 mos. Spouse completes all chores. Got outpatient therapy but sounds like she did not progress and was d/c. They used "BIG" method and pt did not respond to it. Feeds herself 95% of the time. Spouse cuts food. SUBJECTIVE patient agreeable to PT, family notes patient appears less confused/more alert THERAPY DIAGNOSIS Reduced (more content not included)... [facility] ALLIED HEALTHon 12-08-2024 ALLIED HEALTH HNO ID: [id number] Author: LILIAN SHAW CT Service: Radiology Author [...] PATIENT PRESENTS WITH AN IMPLANTABLE OR ATTACHED SUGAR REFINERY SUPERVISOR: No RADIOLOGY DEPARTMENT: MR; Exam(s) Completed: Head: [place] MRA. Lavender Administered: No PERIPHERAL IV DATA: Not applicable SIGNED BY: RICHARD Viramontes December 08, 2024 9:16 AM [place] Basic metabolic 2000 panelon 12-08-2024 Anion gap [Moles/Vol] 9 mmol/L Normal 8-15 [facility] Comment on above: Order Comment: Yoav lujan Type: BLOOD SPECIMENOrdering Facility: [facility] Address: [address] [place] [address] Performed By: #### 2 4320-07, ####[facility] LABORATORYCLIA [id number] [place] [address] [place] Calcium [Mass/Vol] 8.9 mg/dL Normal 8.5-10.2 [place] Comment on above: Order Comment: Yoav lujan Type: BLOOD SPECIMENOrdering Facility: [facility] Address: [address] [place] [address] Performed By: #### 2 4320-07, ####[facility] LABORATORYCLIA [id number] [place] [address] [place] Chloride [Moles/Vol] 104 mmol/L Normal 98-107 [facility] Comment on above: Order Comment: Yoav lujan Type: BLOOD SPECIMENOrdering Facility: [facility] Address: [address] [place] [address] Performed By: #### 2 4320-07, ####[facility] LABORATORYCLIA [id number] [place] [address] [place] CO2 [Moles/Vol] 27 mmol/L Normal 22-30 [place] Comment on above: Order Comment: Yoav lujan Type: BLOOD SPECIMENOrdering Facility: [facility] Address: [address] [place] [address] Performed By: #### 2 4321-2, ####[facility] LABORATORYCLIA [id number] [place] [id number] [place] Creatinine [Mass/Vol] 0.51 mg/dL Low 0.58-0.96 [facility] Comment on above: Order Comment: Yoav lujan Type: BLOOD SPECIMENOrdering Facility: [facility] Address: [address] [place] [address] Performed By: #### 2 4321-2, ####[facility] LABORATORYCLIA [id number] [address] Creatinine and Glomerular filtration rate.predicted panel (S/P/Bld) 96 mL/min/1.73m??? Normal >=60 [place] Comment on above: Order Comment: Yoav lujan Type: BLOOD SPECIMENOrdering Facility: [facility] Address: [address] [place] [address] Result Comment: Mateo mated Glomerular Filtration Rate [...] Performed By: #### 2 4321-2, ####[facility] LABORATORYCLIA [id number] [place] [id number] [place] Glucose [Mass/Vol] 134 mg/dL High 74-99 [place] Comment on above: Order Comment: Yoav tai Type: BLOOD SPECIMENOrdering Facility: [facility] Address: [address] [place] [address] Result Comment: The [place] Diabetes Association (ADA) provides guidance for cutoff [...] Standards of Medical Care in Diabetes 2016, [place] [employer] Association. Diabetes Care. 2016.39(Suppl 1). Performed By: #### 2 4320-07, ####[facility] LABORATORYCLIA [id number] [place] [address] [place] Potassium [Moles/Vol] 4.7 mmol/L Normal 3.7-5.1 [facility] Comment on above: Order Comment: Yoav lujan Type: BLOOD SPECIMENOrdering Facility: [facility] Address: [address] [place] [address] Performed By: #### 2 4320-07, ####[facility] LABORATORYCLIA [id number] [address] [place] Sodium [Moles/Vol] 140 mmol/L Normal 136-144 [place] Comment on above: Order Comment: Yoav lujan Type: BLOOD SPECIMENOrdering Facility: [facility] Address: [address] [place] [address] Performed By: #### 2 4320-07, ####[facility] LABORATORYCLIA [id number] [place] [address] [place] Urea nitrogen [Mass/Vol] 15 mg/dL Normal 7-21 [place] Comment on above: Order Comment: Yoav lujan Type: BLOOD SPECIMENOrdering Facility: [facility] Address: [address] [place] [address] Performed By: #### 2 4320-07, ####[facility] LABORATORYCLIA [id number] [place] [address] [place] CBC W Auto Differential pane l (Bld)on 12-08-2024 Basophils (Bld) [#/Vol] 10*3/uL Normal <0.11 [facility] Comment on above: Order Comment: Speci men Type: BLOOD SPECIMENOrdering Facility: [facility] Address: [address] [place] [address] Performed By: #### 5 7021-8 ####[facility] LABORATORYCLIA [id number] [place] [address] [place] Basophils/100 WBC (Bld) 0.1 % Normal [facility] Comment on above: Order Comment: Speci men Type: BLOOD SPECIMENOrdering Facility: [facility] Address: [address] [place] [address] Performed By: #### 5 7021-8 ####[facility] LABORATORYCLIA [id number] [address] OF [place] Differential cell count method Nom (Bld) Auto Normal [place] Comment on above: Order Comment: Speci men Type: BLOOD SPECIMENOrdering Facility: [facility] Address: [address] [place] [address] Performed By: #### 5 7021-8 ####[facility] LABORATORYCLIA [id number] [place] [address] [place] Eosinophils (Bld) [#/Vol] 10*3/uL Normal <0.46 [place] Comment on above: Order Comment: Speci men Type: BLOOD SPECIMENOrdering Facility: [facility] Address: [address] [place] [address] Performed By: #### 5 7021-8 ####[facility] LABORATORYCLIA [id number] [address] [place] Eosinophils/100 WBC (Bld) 0.0 % Normal [place] Comment on above: Order Comment: Speci men Type: BLOOD SPECIMENOrdering Facility: [facility] Address: [address] [place] [address] Performed By: #### 5 7021-8 ####[facility] LABORATORYCLIA [id number] [place] [address] [place] Erythrocyte distribution width (RBC) [Ratio] 13.3 % Normal 11.5-15.0 [place] Comment on above: Order Comment: Speci men Type: BLOOD SPECIMENOrdering Facility: [facility] Address: [address] [place] [address] Performed By: #### 5 7021-8 ####[facility] LABORATORYCLIA [id number] [place] [address] [place] Hematocrit (Bld) [Volume fraction] 40.2 % Normal 36.0-46.0 [place] Comment on above: Order Comment: Speci men Type: BLOOD SPECIMENOrdering Facility: [facility] Address: [address] [place] [address] Performed By: #### 5 7021-8 ####[facility] LABORATORYCLIA [id number] [address] OF [place]ED Hemoglobin (Bld) [Mass/Vol] 13.2 g/dL Normal 11.5-15.5 [place] Comment on above: Order Comment: Speci men Type: BLOOD SPECIMENOrdering Facility: [facility] Address: [address] [place] [address] Performed By: #### 5 7021-8 ####[facility] LABORATORYCLIA [id number] [place] [address] [place] Immature granulocytes (Bld) [#/Vol] 0.07 10*3/uL Normal <0.10 [place] Comment on above: Order Comment: Speci men Type: BLOOD SPECIMENOrdering Facility: [facility] Address: [address] [place] [address] Performed By: #### 5 7021-8 ####[facility] LABORATORYCLIA [id number] [place] [address] [place] Immature granulocytes/100 WBC (Bld) 0.7 % Normal [place] Comment on above: Order Comment: Speci men Type: BLOOD SPECIMENOrdering Facility: [facility] Address: [address] [place] [address] Performed By: #### 5 7021-8 ####[facility] LABORATORYCLIA [id number] [place] [address] [place] Lymphocytes (Bld) [#/Vol] 0.71 10*3/uL Low 1.00-4.00 [place] Comment on above: Order Comment: Speci men Type: BLOOD SPECIMENOrdering Facility: [facility] Address: [address] [place] [address] Performed By: #### 5 7021-8 ####[facility] LABORATORYCLIA [id number] [address] Lymphocytes/100 WBC (Bld) 6.7 % Normal [place] Comment on above: Order Comment: Speci men Type: BLOOD SPECIMENOrdering Facility: [facility] Address: [address] [place] [address] Performed By: #### 5 7021-8 ####[facility] LABORATORYCLIA [id number] [address] [place] MCH (RBC) [Entitic mass] 30.7 pg Normal 26.0-34.0 [place] Comment on above: Order Comment: Speci men Type: BLOOD SPECIMENOrdering Facility: [facility] Address: [address] [place] [address] Performed By: #### 5 7021-8 ####[facility] LABORATORYCLIA [id number] [address] [place] MCHC (RBC) [Mass/Vol] 32.8 g/dL Normal 30.5-36.0 [facility] Comment on above: Order Comment: Speci men Type: BLOOD SPECIMENOrdering Facility: [facility] Address: [address] [place] [address] Performed By: #### 5 7021-8 ####[facility] LABORATORYCLIA [id number] [address] [place] MCV (RBC) [Entitic vol] 93.5 fL Normal 80.0-100.0 [facility] Comment on above: Order Comment: Speci men Type: BLOOD SPECIMENOrdering Facility: [facility] Address: [address] [place] [address] Performed By: #### 5 7021-8 ####[facility] LABORATORYCLIA [id number] [place] [address] [place] Monocytes (Bld) [#/Vol] 0.34 10*3/uL Normal <0.87 [place] Comment on above: Order Comment: Speci men Type: BLOOD SPECIMENOrdering Facility: [facility] Address: [address] [place] [address] Performed By: #### 5 7021-8 ####[facility] LABORATORYCLIA [id number] [place] [address] [place] Monocytes/100 WBC (Bld) 3.2 % Normal [facility] Comment on above: Order Comment: Speci men Type: BLOOD SPECIMENOrdering Facility: [facility] Address: [address] [place] [address] Performed By: #### 5 7021-8 ####[facility] LABORATORYCLIA [id number] [place] [address] [place] Neutrophils (Bld) [#/Vol] 9.45 10*3/uL High 1.45-7.50 [place] Comment on above: Order Comment: Speci men Type: BLOOD SPECIMENOrdering Facility: [facility] Address: [address] [place] [address] Performed By: #### 5 7021-8 ####[facility] LABORATORYCLIA [id number] [address] [place] Neutrophils/100 WBC (Bld) 89.3 % Normal [place] Comment on above: Order Comment: Speci men Type: BLOOD SPECIMENOrdering Facility: [facility] Address: [address] [place] [address] Performed By: #### 5 7021-8 ####[facility] LABORATORYCLIA [id number] [place] [address] [place] Nucleated RBC (Bld) [#/Vol] 10*3/uL Normal <0.01 [place] Comment on above: Order Comment: Speci men Type: BLOOD SPECIMENOrdering Facility: [facility] Address: [address] [place] [address] Performed By: #### 5 7021-8 ####[facility] LABORATORYCLIA [id number] [place] [address] [place] Nucleated RBC/100 WBC (Bld) [Ratio] 0.0 /100 WBC Normal [place] Comment on above: Order Comment: Speci men Type: BLOOD SPECIMENOrdering Facility: [facility] Address: [address] [place] [address] Performed By: #### 5 7021-8 ####[facility] LABORATORYCLIA [id number] [place] [address] [place] Platelet mean volume (Bld) [Entitic vol] 10.3 fL Normal 9.0-12.7 [place] Comment on above: Order Comment: Speci men Type: BLOOD SPECIMENOrdering Facility: [facility] Address: [address] [place] [address] Performed By: #### 5 7021-8 ####[facility] LABORATORYCLIA [id number] [place] [address] [place] Platelets (Bld) [#/Vol] 207 10*3/uL Normal 150-400 [place] Comment on above: Order Comment: Speci men Type: BLOOD SPECIMENOrdering Facility: [facility] Address: [address] [place] [address] Performed By: #### 5 7021-8 ####[facility] LABORATORYCLIA [id number] [place] [address] [place] RBC (Bld) [#/Vol] 4.30 10*6/uL Normal 3.90-5.20 [facility] Comment on above: Order Comment: Speci men Type: BLOOD SPECIMENOrdering Facility: [facility] Address: [address] [place] [address] Performed By: #### 5 7021-8 ####[facility] LABORATORYCLIA [id number] [place] [address] [place] WBC (Bld) [#/Vol] 10.58 10*3/uL Normal 3.70-11.00 [facility] Comment on above: Order Comment: Speci men Type: BLOOD SPECIMENOrdering Facility: [facility] Address: [address] [place] [address] Performed By: #### 5 7021-8 ####UBALDO LABORATORYCLIA [id number] [place] [address] [place] CONSULT PROGon 12-08-2024 CONSULT PROG HNO ID: [id number] Author: GREG AGEE JR, MD Service: Neurology [...] Statutory holidays do not have teleneuro coverage. [facility] : During Off hours for Teleneurology please page (not call) [place] [facility] [phone] clinical science consultant for concerns. [place]: During Off hours for Teleneurology please page (not call) [place] [facility] [phone] clinical science consultant for concerns. [facility]: There is no off-hours coverage for [...] PM me (more content not included)... Normal [place] MRA BRAIN WO IVCONon -18-2 025 MRA BRAIN WO IVCON * * *Final Report* * * DATE OF EXAM: Dec 08 2024 9:30AM [facility] 0272 - MRA BRAIN WO IVCON / PROCEDURE REASON: Headache, new or worsening (Age >= 50y) * * * * Physician Interpretation * * * * EXAMINATION: MRA BRAIN WO IVCON CLINICAL HISTORY: Headache, new or worsening. TECHNIQUE: Routine noncontrast MRI brain protocol including diffusion and gradient echo images. Intracranial 3D ryeq-ji-buyfun MRA with post-processing performed at the modality [...] territory infarct is partially included within the xssyl-gh-bxzq on the individual partitions. INTRACRANIAL MRA: Distal [...] or aneurysm. IMPRESSION: Patent intracranial arterial vasculature. 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: PSCB Transcribe Date/Time: Dec 08 2024 10:06A Dictated by : SHANT SUÁREZ MD This examination was interpreted and the report reviewed and electronically signed by: SHANT SUÁREZ MD on Dec 08 2024 10:11AM EST [id number] N Normal [place] Magnesium SerPl-mCncon 12-08 Magnesium [Mass/Vol] 2.1 mg/dL Normal 1.7-2.3 [facility] Comment on above: Order Comment: Speci men Type: BLOOD SPECIMENOrdering Facility: [facility] Address: [address] [place] [address] [place] [address] Performed By: #### 2 4321-2, 81188-5 ####[facility] LABORATORYCLIA [id number] [place] [address] [facility] NUTRITIONon 12-08-2024 NUTRITION HNO ID: [id number] Author: PAULA MAXWELL RD Service: Nutrition Therapy [...] 12/03/24 1252 Anthropometrics: Height: 167.6 cm (5' 6") Weight: 93.6 kg (206 lb 5.6 oz) [...] DATE: December 08, 2024 TIME: 11:20 AM [facility] ALLIED HEALTHon 12-07-2024 ALLIED HEALTH HNO ID: [id number] Author: NELSON EDWARDS CT Service: Radiology Author Type: Technologist Type: [...] PATIENT PRESENTS WITH AN IMPLANTABLE OR ATTACHED SUGAR REFINERY SUPERVISOR: No RADIOLOGY DEPARTMENT: CT; Exam(s) Completed: Brain PERIPHERAL IV DATA: Inpatient: see LDA documentation SIGNED BY: RICHARD Jean December 07, 2024 12:10 PM Normal [place] Basic metabolic 2000 panelon 12-07-2024 Anion gap [Moles/Vol] 8 mmol/L Normal 8-15 [facility] Comment on above: Order Comment: Yoav lujan Type: BLOOD SPECIMENOrdering Facility: [facility] Address: [address] [place] [address] Performed By: #### 2 4321-2, 70598-9 ####[facility] LABORATORYCLIA [id number] [place] [address] [place] Calcium [Mass/Vol] 8.5 mg/dL Normal 8.5-10.2 [place] Comment on above: Order Comment: Yoav lujan Type: BLOOD SPECIMENOrdering Facility: [facility] Address: [address] [place] [address] Performed By: #### 2 4321-2, ####[facility] LABORATORYCLIA [id number] [place] [address] [place] Chloride [Moles/Vol] 104 mmol/L Normal 98-107 [facility] Comment on above: Order Comment: Speci men Type: BLOOD SPECIMENOrdering Facility: [facility] Address: [address] [place] [address] Performed By: #### 2 4321-2, ####[facility] LABORATORYCLIA [id number] [place] [address] [place] CO2 [Moles/Vol] 29 mmol/L Normal 22-30 [place] Comment on above: Order Comment: Speci men Type: BLOOD SPECIMENOrdering Facility: [facility] Address: [address] [place] [address] Performed By: #### 2 4321-2, ####CONNER LABORATORYCLIA [id number] [place] [id number] [place] Creatinine [Mass/Vol] 0.63 mg/dL Normal 0.58-0.96 [facility] Comment on above: Order Comment: Speci men Type: BLOOD SPECIMENOrdering Facility: [facility] Address: [address] [place] [address] Performed By: #### 2 4321-2, ####CON[facility] LABORATORYCLIA [id number] [place] [id number] [place] Creatinine and Glomerular filtration rate.predicted panel (S/P/Bld) 91 mL/min/1.73m??? Normal >=60 [place] Comment on above: Order Comment: Speci men Type: BLOOD SPECIMENOrdering Facility: [facility] Address: [address] [place] [address] Result Comment: Mateo mated Glomerular Filtration Rate [...] reflect actual GFR. Performed By: #### 2 43206-24, ####[facility] LABORATORYCLIA [id number] [place] [address] [place] Glucose [Mass/Vol] 92 mg/dL Normal 74-99 [place] Comment on above: Order Comment: Yoav lujan Type: BLOOD SPECIMENOrdering Facility: [facility] Address: [address] [place] [address] Result Comment: The [place] Diabetes Association (ADA) provides guidance for cutoff [...] Standards of Medical Care in Diabetes 2016, [place] [employer]. Diabetes Care. 2016.39(Suppl 1). Performed By: #### 2 4320-07, ####CON[facility] LABORATORYCLIA [id number] [place] [id number] [place] Potassium [Moles/Vol] 4.0 mmol/L Normal 3.7-5.1 [facility] Comment on above: Order Comment: Yoav lujan Type: BLOOD SPECIMENOrdering Facility: [facility] Address: [address] [place] [address] Performed By: #### 2 4320-07, ####CON[facility] LABORATORYCLIA [id number] [place] [address] [place] Sodium [Moles/Vol] 141 mmol/L Normal 136-144 [place] Comment on above: Order Comment: Yoav lujan Type: BLOOD SPECIMENOrdering Facility: [facility] Address: [address] [place] [address] Performed By: #### 2 4321-2, ####CON[facility] LABORATORYCLIA [id number] [place] [address] [place] Urea nitrogen [Mass/Vol] 14 mg/dL Normal 7-21 [place] Comment on above: Order Comment: Speci men Type: BLOOD SPECIMENOrdering Facility: [facility] Address: [address] [place] [address] Performed By: #### 2 4321-2, ####CONNER LABORATORYCLIA [id number] [address] STATES OF [place] CBC panel Auto (Bld)on 12-07 Erythrocyte distribution width (RBC) [Ratio] 13.9 % Normal 11.5-15.0 [place] Comment on above: Order Comment: Speci men Type: BLOOD SPECIMENOrdering Facility: [facility] Address: [address] [place] [address] Performed By: #### 5 8410-2 ####CON[facility] LABORATORYCLIA [id number] [address] STATES [facility] Hematocrit (Bld) [Volume fraction] 39.9 % Normal 36.0-46.0 [place] Comment on above: Order Comment: Speci men Type: BLOOD SPECIMENOrdering Facility: [facility] Address: [address] [place] [address] Performed By: #### 5 8410-2 ####[facility] LABORATORYCLIA [id number] [address] STATES [place] Hemoglobin (Bld) [Mass/Vol] 13.0 g/dL Normal 11.5-15.5 [place] Comment on above: Order Comment: Speci men Type: BLOOD SPECIMENOrdering Facility: [facility] Address: [address] [place] [address] Performed By: #### 5 8410-2 ####CON[facility] LABORATORYCLIA [id number] [address] CED MCH (RBC) [Entitic mass] 31.0 pg Normal 26.0-34.0 [place] Comment on above: Order Comment: Speci men Type: BLOOD SPECIMENOrdering Facility: [facility] Address: [address] [place] [address] Performed By: #### 5 8410-2 ####CON[facility] LABORATORYCLIA [id number] [address] STATES CED MCHC (RBC) [Mass/Vol] 32.6 g/dL Normal 30.5-36.0 [facility] Comment on above: Order Comment: Speci men Type: BLOOD SPECIMENOrdering Facility: [facility] Address: [address] [place] [address] Performed By: #### 5 8410-2 ####CONNER LABORATORYCLIA [id number] [address] STATES CED MCV (RBC) [Entitic vol] 95.0 fL Normal 80.0-100.0 [facility] [place] Comment on above: Order Comment: Speci men Type: BLOOD SPECIMENOrdering Facility: [facility] Address: [address] [place] [address] Performed By: #### 5 8410-2 ####CON[facility] LABORATORYCLIA [id number] [address] STATES C[place] Nucleated RBC (Bld) [#/Vol] 10*3/uL Normal <0.01 [place] Comment on above: Order Comment: Speci men Type: BLOOD SPECIMENOrdering Facility: [facility] Address: [address] [place] [address] Performed By: #### 5 8410-2 ####CON[facility] LABORATORYCLIA [id number] [address] STATES OF [place] Platelet mean volume (Bld) [Entitic vol] 9.8 fL Normal 9.0-12.7 [place] Comment on above: Order Comment: Speci men Type: BLOOD SPECIMENOrdering Facility: [facility] Address: [address] [place] [address] Performed By: #### 5 8410-2 ####CON[facility] LABORATORYCLIA [id number] [address] OF CED Platelets (Bld) [#/Vol] 171 10*3/uL Normal 150-400 [place] Comment on above: Order Comment: Speci men Type: BLOOD SPECIMENOrdering Facility: [facility] Address: [address] [place] [address] Performed By: #### 5 8410-2 ####CON[facility] LABORATORYCLIA [id number] [address] [facility] RBC (Bld) [#/Vol] 4.20 10*6/uL Normal 3.90-5.20 [facility] Comment on above: Order Comment: Speci men Type: BLOOD SPECIMENOrdering Facility: [facility] Address: [address] [place] [address] Performed By: #### 5 8410-2 ####CON[facility] LABORATORYCLIA [id number] [address] WBC (Bld) [#/Vol] 10.27 10*3/uL Normal 3.70-11.00 [facility] Comment on above: Order Comment: Speci men Type: BLOOD SPECIMENOrdering Facility: [facility] Address: [address] [place] [address] Performed By: #### 5 8410-2 ####CON[facility] LABORATORYCLIA [id number] [address] CONSULTon 12-07-2024 CONSULT HNO ID: [id number] Author: KELTON TAYLOR DO Service: General Surgery [...] 6 hours (more content not included)... Normal [place] CT BRAIN WO IVCONon 12-08-[address] BRAIN WO IVCON * * *Final Report* * * DATE OF EXAM: Dec 07 2024 12:11PM [facility] 0504 - CT BRAIN WO IVCON / [...] change. No intracranial mass effect or hemorrhage. 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: JARVIS Transcribe Date/Time: Dec 07 2024 12:40P Dictated by : SADAF KAUR MD This examination was interpreted and the report reviewed and electronically signed by: SADAF KAUR MD on Dec 07 2024 12:43PM EST [id number] N Normal [place] ESR Westergren method (Bld) [Velocity]on 12-07-2024 ESR (Bld) [Velocity] 45 mm/h High 0-20 [facility] Comment on above: Order Comment: Speci men Type: BLOOD SPECIMENOrdering Facility: [facility] Address: [address] [place] [address] Performed By: #### 4 537-7 ####[facility] LABCLIA [id number] [place] [address] [place] Magnesium SerPl-mCncon 12-07 Magnesium [Mass/Vol] 2.1 mg/dL Normal 1.7-2.3 [facility] Comment on above: Order Comment: Speci men Type: BLOOD SPECIMENOrdering Facility: [facility] Address: [address] [place] [address] Performed By: #### 2 4321-2, 07104-8 ####CONNER LABORATORYCLIA [id number] [place] [address] [facility] THERAPY NTon 12-07-2024 THERAPY NT HNO ID: [id number] Author: LOBITO CAVAZOS PT Service: Physical Therapy Author Type: Physical Therapist Type: Therapy (PT/OT/Speech/Resp) Filed: 12/07/2024 11:41 Note Text: Summary: PT treatment/lprecert Physical Therapy Treatment Summary SERVICE DATE: 12/07/2024 SERVICE TIME: 1042 to 1117 ROOM: [id number] PT 6 Clicks Score: 13 DISCHARGE RECOMMENDATIONS [...] toilet. Spouse assists with toilet transfer at [facility], spouse completes hygiene, some incontinent epsidoes Pt spends all day in lift chair when not at daycare and spouse helps her out. Spouse report (more content not included)... Normal [place] THERAPY NT O ID: [id number] Author: ORQUIDEA VELÁZQUEZ OT/West Service: Occupational Therapy Author Type: Occupational Therapist Type: Therapy (PT/OT/Speech/Resp) Filed: 12/07/2024 09:53 Note Text: Summary: OT Treatment Occupational Therapy Treatment Summary SERVICE DATE: 12/07/2024 SERVICE TIME: 924 to 942 ROOM: [id number] OT 6 Clicks Score: 9 DISCHARGE RECOMMENDATIONS [...] toilet. Spouse assists with toilet transfer at [facility], spouse completes hygiene, some incontinent epsidoes Pt spends all day in lift chair when not at daycare and spouse helps her out. Spouse reports 4 falls in past 6 mos. Spouse completes all chores. Got outpatient therapy but sounds like she did not progress and was d/c. They used "BIG" method and pt did not respond to [...] Cognitive Functions and Awareness TREATMENT INTERVENTIONS Self Long-Term Manag (more content not included)... Normal [place] Basic metabolic 2000 panelon 12-06-2024 Anion gap [Moles/Vol] 10 mmol/L Normal 8-15 [facility] Comment on above: Order Comment: Speci men Type: BLOOD SPECIMENOrdering Facility: [facility] Address: [address] [place], [place] [address] Performed By: #### 2 4321-2, 63197-7 ####[facility] LABORATORYCLIA [id number] [place] [address] [place] Calcium [Mass/Vol] 8.7 mg/dL Normal 8.5-10.2 [place] Comment on above: Order Comment: Speci men Type: BLOOD SPECIMENOrdering Facility: [facility] Address: [address] [place] [address] Performed By: #### 2 4321-2, ####[facility] LABORATORYCLIA [id number] [place] [address] [place] Chloride [Moles/Vol] 103 mmol/L Normal 98-107 [facility] Comment on above: Order Comment: Speci men Type: BLOOD SPECIMENOrdering Facility: [facility] Address: [address] [place] [address] Performed By: #### 2 4321-2, ####CON[facility] LABORATORYCLIA [id number] [place] [address] [place] CO2 [Moles/Vol] 26 mmol/L Normal 22-30 [place] Comment on above: Order Comment: Speci men Type: BLOOD SPECIMENOrdering Facility: [facility] Address: [address] [place] [address] Performed By: #### 2 4321-2, ####CON[facility] LABORATORYCLIA [id number] [place] [address] [place] Creatinine [Mass/Vol] 0.60 mg/dL Normal 0.58-0.96 [facility] Comment on above: Order Comment: Speci men Type: BLOOD SPECIMENOrdering Facility: [facility] Address: [address] [place] [address] Performed By: #### 2 4321-2, ####[facility] LABORATORYCLIA [id number] [place] [address] [place] [facility] CED Creatinine and Glomerular filtration rate.predicted panel (S/P/Bld) 92 mL/min/1.73m??? Normal >=60 [place] Comment on above: Order Comment: Speci men Type: BLOOD SPECIMENOrdering Facility: [facility] Address: [address] [place] [address] Result Comment: Mateo mated Glomerular Filtration Rate [...] reflect actual GFR. Performed By: #### 2 432-, ####[facility] LABORATORYCLIA [id number] [place] [address] [place] Glucose [Mass/Vol] 103 mg/dL High 74-99 [place] Comment on above: Order Comment: Yoav lujan Type: BLOOD SPECIMENOrdering Facility: [facility] Address: [address] [place] [address] Result Comment: The [place] Diabetes Association (ADA) provides guidance for cutoff [...] Standards of Medical Care in Diabetes 2016, [place] [employer]. Diabetes Care. 2016.39(Suppl 1). Performed By: #### 2 4320-07, ####[facility] LABORATORYCLIA [id number] [place] [address] [place] Potassium [Moles/Vol] 4.0 mmol/L Normal 3.7-5.1 [facility] Comment on above: Order Comment: Yoav lujan Type: BLOOD SPECIMENOrdering Facility: [facility] Address: [address] [place] [address] Performed By: #### 2 43206-24, ####[facility] LABORATORYCLIA [id number] [place] [address] [place] Sodium [Moles/Vol] 139 mmol/L Normal 136-144 [place] Comment on above: Order Comment: Speci men Type: BLOOD SPECIMENOrdering Facility: [facility] Address: [address] [place] [address] Performed By: #### 2 4321-2, 49075-3 ####[facility] LABORATORYCLIA [id number] [address] STATES OF CED Urea nitrogen [Mass/Vol] 13 mg/dL Normal 7-21 [place] Comment on above: Order Comment: Speci men Type: BLOOD SPECIMENOrdering Facility: [facility] Address: [address] [place] [address] Performed By: #### 2 4321-2, ####[facility] LABORATORYCLIA [id number] [address] STATES OF CED CBC panel Auto (Bld)on 12-06 Erythrocyte distribution width (RBC) [Ratio] 13.8 % Normal 11.5-15.0 [place] Comment on above: Order Comment: Speci men Type: BLOOD SPECIMENOrdering Facility: [facility] Address: [address] [place] [address] Performed By: #### 5 8410-2 ####[facility] LABORATORYCLIA [id number] [address] STATES OF CED Hematocrit (Bld) [Volume fraction] 40.6 % Normal 36.0-46.0 [place] Comment on above: Order Comment: Speci men Type: BLOOD SPECIMENOrdering Facility: [facility] Address: [address] [place] [address] Performed By: #### 5 8410-2 ####[facility] LABORATORYCLIA [id number] [address] STATES OF CED Hemoglobin (Bld) [Mass/Vol] 13.5 g/dL Normal 11.5-15.5 [place] Comment on above: Order Comment: Speci men Type: BLOOD SPECIMENOrdering Facility: [facility] Address: [address] [place] [address] Performed By: #### 5 8410-2 ####CON[facility] LABORATORYCLIA [id number] [address] MCH (RBC) [Entitic mass] 31.1 pg Normal 26.0-34.0 [place] Comment on above: Order Comment: Speci men Type: BLOOD SPECIMENOrdering Facility: [facility] Address: [address] [place] [address] Performed By: #### 5 8410-2 ####[facility] LABORATORYCLIA [id number] [address] STATES OF CED MCHC (RBC) [Mass/Vol] 33.3 g/dL Normal 30.5-36.0 [facility] Comment on above: Order Comment: Speci men Type: BLOOD SPECIMENOrdering Facility: [facility] Address: [address] [place] [address] Performed By: #### 5 8410-2 ####[facility] LABORATORYCLIA [id number] [address] CED MCV (RBC) [Entitic vol] 93.5 fL Normal 80.0-100.0 [facility] Comment on above: Order Comment: Speci men Type: BLOOD SPECIMENOrdering Facility: [facility] Address: [address] [place] [address] Performed By: #### 5 8410-2 ####[facility] LABORATORYCLIA [id number] [address] Nucleated RBC (Bld) [#/Vol] 10*3/uL Normal <0.01 [place] Comment on above: Order Comment: Speci men Type: BLOOD SPECIMENOrdering Facility: [facility] Address: [address] [place] [address] Performed By: #### 5 8410-2 ####CON[facility] LABORATORYCLIA [id number] [address] CED Platelet mean volume (Bld) [Entitic vol] 9.9 fL Normal 9.0-12.7 [place] Comment on above: Order Comment: Speci men Type: BLOOD SPECIMENOrdering Facility: [facility] Address: [address] [place] [address] Performed By: #### 5 8410-2 ####[facility] LABORATORYCLIA [id number] [address] OF CED Platelets (Bld) [#/Vol] 183 10*3/uL Normal 150-400 [place] Comment on above: Order Comment: Speci men Type: BLOOD SPECIMENOrdering Facility: [facility] Address: [address] [place] [address] Performed By: #### 5 8410-2 ####[facility] LABORATORYCLIA [id number] [place] [address] [place] RBC (Bld) [#/Vol] 4.34 10*6/uL Normal 3.90-5.20 [facility] Comment on above: Order Comment: Speci men Type: BLOOD SPECIMENOrdering Facility: [facility] Address: [address] [place] [address] Performed By: #### 5 8410-2 ####[facility] LABORATORYCLIA [id number] [address] [facility] WBC (Bld) [#/Vol] 11.94 10*3/uL High 3.70-11.00 [facility] Comment on above: Order Comment: Speci men Type: BLOOD SPECIMENOrdering Facility: [facility] Address: [address] [place] [address] Performed By: #### 5 8410-2 ####[facility] LABORATORYCLIA [id number] [address] OF CED Magnesium SerPl-mCncon 12-06 Magnesium [Mass/Vol] 2.0 mg/dL Normal 1.7-2.3 [facility] Comment on above: Order Comment: Speci men Type: BLOOD SPECIMENOrdering Facility: [facility] Address: [address] [place] [address] Performed By: #### 2 4321-2, 32206-8 ####[facility] LABORATORYCLIA [id number] [address] OF CED THERAPY NTon 12-06-2024 THERAPY NT HNO ID: [id number] Author: ORQUIDEA VELÁZQUEZ, OT/L Service: Occupational Therapy Author Type: Occupational Therapist Type: Therapy (PT/OT/Speech/Resp) Filed: 12/06/2024 13:57 Note Text: OCCUPATIONAL THERAPY MISSED VISIT SERVICE DATE: 12/06/2024 SERVICE TIME: 1355 ROOM: [place] [address] Patient not seen due to Test / Procedure. EEG being complete at pt's bedside. Will re-attempt as schedule allows. CM notified as this pt has precert needs. SIGNATURE: Orquidea Velázquez OT/West PATIENT NAME: Madiha Perales DATE: December 06, 2024 TIME: 1:57 PM [facility] THERAPY NT HNO ID: [id number] Author: KATIE MACIEL, TAVO-WILDLIFE SCIENCE PROFESSOR Service: Speech/Swallow Author Type: Speech Language Pathologist Type: Therapy (PT/OT/Speech/Resp) Filed: 12/06/2024 12:41 Note Text: Summary: Dysphagia Therapy Speech Therapy Treatment SERVICE DATE: 12/06/2024 SERVICE TIME: 1209 to 1239 ROOM: [place] [address] IMPRESSION Swallow Deficits Identified / Suspected: Oral dysphagia RECOMMENDATIONS Diet Recommendations Regular Consistency, Thin Liquids IDDSI Level 0 Swallow Strategy Recommendations 1:1 Supervision, Alert (patient should be fully alert for P.O. intake), Alternate bites and sips, Small Bite/Sip, Supervision/Assistanc e for meals Nursing Recommendations Promote insight/safety opportunities, [...] receptive to therapy this date THERAPY DIAGNOSIS Cognitive-Communicati on Deficits, Dysphagia, oral phase TREATMENT INTERVENTIONS Dysphagia Therapy (49606) Skilled Treatment Time (minutes): 30 TRAINING AND [...] cough Oral Motor Exam: Within Functional Limits SPEECH/VOICE/LANGUAGE Vocal Quality: Clear (able to demonstrate good [...] Dysphagia Management, Caregiver Education SIGNATURE: Katie Martin [facility]-WILDLIFE SCIENCE PROFESSOR PATIENT NAME: P (more content not included)... Normal [place] Basic metabolic 2000 panelon 12-05-2024 Anion gap [Moles/Vol] 10 mmol/L Normal 8-15 [facility] Comment on above: Order Comment: Yoav lujan Type: BLOOD SPECIMENOrdering Facility: [facility] Address: [address] [place] [address] Performed By: #### 2 4320-07, ####[facility] LABORATORYCLIA [id number] [place] [address] [place] Calcium [Mass/Vol] 8.6 mg/dL Normal 8.5-10.2 [place] Comment on above: Order Comment: Yoav lujan Type: BLOOD SPECIMENOrdering Facility: [facility] Address: [address] [place] [address] Performed By: #### 2 4320-07, ####[facility] LABORATORYCLIA [id number] [place] [address] [place] Chloride [Moles/Vol] 102 mmol/L Normal 98-107 [facility] Comment on above: Order Comment: Yoav lujan Type: BLOOD SPECIMENOrdering Facility: [facility] Address: [address] [place] [address] Performed By: #### 2 4320-07, ####[facility] LABORATORYCLIA [id number] [place] [address] [place] CO2 [Moles/Vol] 27 mmol/L Normal 22-30 [place] Comment on above: Order Comment: Yoav lujan Type: BLOOD SPECIMENOrdering Facility: [facility] Address: [address] [place] [address] Performed By: #### 2 4321-2, ####[facility] LABORATORYCLIA [id number] [place] [address] [place] [facility] Creatinine [Mass/Vol] 0.58 mg/dL Normal 0.58-0.96 [facility] Comment on above: Order Comment: Yoav lujan Type: BLOOD SPECIMENOrdering Facility: [facility] Address: [address] [place] [address] Performed By: #### 2 4321-2, ####[facility] LABORATORYCLIA [id number] [address] Creatinine and Glomerular filtration rate.predicted panel (S/P/Bld) 93 mL/min/1.73m??? Normal >=60 [place] Comment on above: Order Comment: Yoav lujan Type: BLOOD SPECIMENOrdering Facility: [facility] Address: [address] [place] [address] Result Comment: Mateo mated Glomerular Filtration Rate [...] Performed By: #### 2 4321-2, ####[facility] LABORATORYCLIA [id number] [place] [id number] [place] Glucose [Mass/Vol] 100 mg/dL High 74-99 [place] Comment on above: Order Comment: Yoav tai Type: BLOOD SPECIMENOrdering Facility: [facility] Address: [address] [place] [address] Result Comment: The [place] Diabetes Association (ADA) provides guidance for cutoff [...] Standards of Medical Care in Diabetes 2016, [place] [employer]. Diabetes Care. 2016.39(Suppl 1). Performed By: #### 2 4320-2, ####[facility] LABORATORYCLIA [id number] [address] STATES OF [place] Potassium [Moles/Vol] 4.2 mmol/L Normal 3.7-5.1 [facility] Comment on above: Order Comment: Yoav lujan Type: BLOOD SPECIMENOrdering Facility: [facility] Address: [address] [place] [address] Performed By: #### 2 4320-07, ####[facility] LABORATORYCLIA [id number] [address] Sodium [Moles/Vol] 139 mmol/L Normal 136-144 [place] Comment on above: Order Comment: Yoav lujan Type: BLOOD SPECIMENOrdering Facility: [facility] Address: [address] [place] [address] Performed By: #### 2 4320-07, ####[facility] LABORATORYCLIA [id number] [address] STATES [facility] Urea nitrogen [Mass/Vol] 15 mg/dL Normal 7-21 [place] Comment on above: Order Comment: Yoav lujan Type: BLOOD SPECIMENOrdering Facility: [facility] Address: [address] [place] [address] Performed By: #### 2 2, ####[facility] LABORATORYCLIA [id number] [place] [address] [place] CBC W Auto Differential pane l (Bld)on 12-05-2024 Basophils (Bld) [#/Vol] 0.04 10*3/uL Normal <0.11 [place] Comment on above: Order Comment: Speci men Type: BLOOD SPECIMENOrdering Facility: [facility] Address: [address] [place] [address] Performed By: #### 5 7021-8 ####[facility] LABORATORYCLIA [id number] [place] [address] [place] Basophils/100 WBC (Bld) 0.4 % Normal [facility] [place] Comment on above: Order Comment: Speci men Type: BLOOD SPECIMENOrdering Facility: [facility] Address: [address] [place] [address] Performed By: #### 5 7021-8 ####[facility] LABORATORYCLIA [id number] [place] [address] [place] Differential cell count method Nom (Bld) Auto Normal [place] Comment on above: Order Comment: Speci men Type: BLOOD SPECIMENOrdering Facility: [facility] Address: [address] [place] [address] Performed By: #### 5 7021-8 ####[facility] LABORATORYCLIA [id number] [place] [address] [place] Eosinophils (Bld) [#/Vol] 0.13 10*3/uL Normal <0.46 [place] Comment on above: Order Comment: Speci men Type: BLOOD SPECIMENOrdering Facility: [facility] Address: [address] [place] [address] Performed By: #### 5 7021-8 ####[facility] LABORATORYCLIA [id number] [place] [address] [place] Eosinophils/100 WBC (Bld) 1.3 % Normal [place] Comment on above: Order Comment: Speci men Type: BLOOD SPECIMENOrdering Facility: [facility] Address: [address] [place] [address] Performed By: #### 5 7021-8 ####[facility] LABORATORYCLIA [id number] [place] [address] [place] Erythrocyte distribution width (RBC) [Ratio] 13.9 % Normal 11.5-15.0 [place] Comment on above: Order Comment: Speci men Type: BLOOD SPECIMENOrdering Facility: [facility] Address: [address] [place] [address] Performed By: #### 5 7021-8 ####[facility] LABORATORYCLIA [id number] [address] Hematocrit (Bld) [Volume fraction] 41.5 % Normal 36.0-46.0 [place] Comment on above: Order Comment: Speci men Type: BLOOD SPECIMENOrdering Facility: [facility] Address: [address] [place] [address] Performed By: #### 5 7021-8 ####[facility] LABORATORYCLIA [id number] [address] OF CED Hemoglobin (Bld) [Mass/Vol] 13.5 g/dL Normal 11.5-15.5 [place] Comment on above: Order Comment: Speci men Type: BLOOD SPECIMENOrdering Facility: [facility] Address: [address] [place] [address] Performed By: #### 5 7021-8 ####[facility] LABORATORYCLIA [id number] [address] OF CED Immature granulocytes (Bld) [#/Vol] 0.03 10*3/uL Normal <0.10 [place] Comment on above: Order Comment: Speci men Type: BLOOD SPECIMENOrdering Facility: [facility] Address: [address] [place] [address] Performed By: #### 5 7021-8 ####[facility] LABORATORYCLIA [id number] [address] Immature granulocytes/100 WBC (Bld) 0.3 % Normal [place] Comment on above: Order Comment: Speci men Type: BLOOD SPECIMENOrdering Facility: [facility] Address: [address] [place] [address] Performed By: #### 5 7021-8 ####[facility] LABORATORYCLIA [id number] [address] OF CED Lymphocytes (Bld) [#/Vol] 0.96 10*3/uL Low 1.00-4.00 [place] Comment on above: Order Comment: Speci men Type: BLOOD SPECIMENOrdering Facility: [facility] Address: [address] [place] [address] Performed By: #### 5 7021-8 ####[facility] LABORATORYCLIA [id number] [address] [place] Lymphocytes/100 WBC (Bld) 9.6 % Normal [place] Comment on above: Order Comment: Speci men Type: BLOOD SPECIMENOrdering Facility: [facility] Address: [address] [place] [address] Performed By: #### 5 7021-8 ####[facility] LABORATORYCLIA [id number] [address] CED MCH (RBC) [Entitic mass] 30.7 pg Normal 26.0-34.0 [place] Comment on above: Order Comment: Speci men Type: BLOOD SPECIMENOrdering Facility: [facility] Address: [address] [place] [address] Performed By: #### 5 7021-8 ####[facility] LABORATORYCLIA [id number] [address] [place] MCHC (RBC) [Mass/Vol] 32.5 g/dL Normal 30.5-36.0 [facility] Comment on above: Order Comment: Speci men Type: BLOOD SPECIMENOrdering Facility: [facility] Address: [address] [place] [address] Performed By: #### 5 7021-8 ####[facility] LABORATORYCLIA [id number] [address] C[place] MCV (RBC) [Entitic vol] 94.3 fL Normal 80.0-100.0 M [facility] Comment on above: Order Comment: Speci men Type: BLOOD SPECIMENOrdering Facility: [facility] Address: [address] [place] [address] Performed By: #### 5 7021-8 ####[facility] LABORATORYCLIA [id number] [address] [place] Monocytes (Bld) [#/Vol] 0.92 10*3/uL High <0.87 [place] Comment on above: Order Comment: Speci men Type: BLOOD SPECIMENOrdering Facility: [facility] Address: [address] [place] [address] Performed By: #### 5 7021-8 ####[facility] LABORATORYCLIA [id number] [place] [address] [place] Monocytes/100 WBC (Bld) 9.2 % Normal [facility] [place] Comment on above: Order Comment: Speci men Type: BLOOD SPECIMENOrdering Facility: [facility] Address: [address] [place] [address] Performed By: #### 5 7021-8 ####[facility] LABORATORYCLIA [id number] [place] [address] [place] Neutrophils (Bld) [#/Vol] 7.94 10*3/uL High 1.45-7.50 [place] Comment on above: Order Comment: Speci men Type: BLOOD SPECIMENOrdering Facility: [facility] Address: [address] [place] [address] Performed By: #### 5 7021-8 ####[facility] LABORATORYCLIA [id number] [address] OF CED Neutrophils/100 WBC (Bld) 79.2 % Normal [place] Comment on above: Order Comment: Speci men Type: BLOOD SPECIMENOrdering Facility: [facility] Address: [address] [place] [address] Performed By: #### 5 7021-8 ####[facility] LABORATORYCLIA [id number] [place] [address] [place] Nucleated RBC (Bld) [#/Vol] 10*3/uL Normal <0.01 [place] Comment on above: Order Comment: Speci men Type: BLOOD SPECIMENOrdering Facility: [facility] Address: [address] [place] [address] Performed By: #### 5 7021-8 ####[facility] LABORATORYCLIA [id number] [place] [address] [place] Nucleated RBC/100 WBC (Bld) [Ratio] 0.0 /100 WBC Normal [place] Comment on above: Order Comment: Speci men Type: BLOOD SPECIMENOrdering Facility: [facility] Address: [address] [place] [address] Performed By: #### 5 7021-8 ####[facility] LABORATORYCLIA [id number] [address] OF CED Platelet mean volume (Bld) [Entitic vol] 9.8 fL Normal 9.0-12.7 [place] Comment on above: Order Comment: Speci men Type: BLOOD SPECIMENOrdering Facility: [facility] Address: [address] [place] [address] Performed By: #### 5 7021-8 ####[facility] LABORATORYCLIA [id number] [address] OF CED Platelets (Bld) [#/Vol] 182 10*3/uL Normal 150-400 [place] Comment on above: Order Comment: Speci men Type: BLOOD SPECIMENOrdering Facility: [facility] Address: [address] [place] [address] Performed By: #### 5 7021-8 ####[facility] LABORATORYCLIA [id number] [place] [address] [place] RBC (Bld) [#/Vol] 4.40 10*6/uL Normal 3.90-5.20 [facility] Comment on above: Order Comment: Speci men Type: BLOOD SPECIMENOrdering Facility: [facility] Address: [address] [place] [address] Performed By: #### 5 7021-8 ####[facility] LABORATORYCLIA [id number] [address] [place] WBC (Bld) [#/Vol] 10.02 10*3/uL Normal 3.70-11.00 [facility] Comment on above: Order Comment: Speci men Type: BLOOD SPECIMENOrdering Facility: [facility] Address: [address] [place] [address] Performed By: #### 5 7021-8 ####[facility] LABORATORYCLIA [id number] [address] [facility] CONSULT PROGon 12-05-2024 CONSULT PROG HNO ID: [id number] Author: RACHEAL DE LA ROSA MD Service: Neurology General Author Type: Physician Type: Consult Progress Note Filed: 12/05/2024 08:45 Note Text: TELENEUROLOGY CONSULT PROGRESS NOTE Patient seen using [facility]. Recommendations are placed in the chart. Please review. For questions after hours, when teleneurologist is not available, for [place]: Please Page [phone] for the [facility] from noon to 8am Please [...] (Src) 98.4 (Oral) Resp 12 Ht 5' 6" (1.68m) Wt 206 lb 5.6 oz (93.6kg) [...] 2.81 LDL/HDL Ratio, Nonfasting <2.54 mg/dL 1.56 Impression/Recommenda tions Patient is waking up, more alert and [...] 2024 TIME: 8:26 AM PAGER/CONTACT #: Normal [place] Magnesium SerPl-mCncon 12-05 Magnesium [Mass/Vol] 2.1 mg/dL Normal 1.7-2.3 [facility] Comment on above: Order Comment: [facility] Type: BLOOD SPECIMENOrdering Facility: [facility] Address: [address] [place] [address] Performed By: #### 2 4321-2, 34999-2 ####[facility] LABORATORYCLIA [id number] [address] ARTERIAL BLOOD GASESon 12-04 Carboxyhemoglobin (BldA) [Mass fraction] 1.4 % Normal 0.0-2.0 [place] Comment on above: Order Comment: [facility] Type: ARTERIAL BLOOD SPECIMENOrdering Facility: [facility] Address: [address] [place], [place] [address] Result Comment: Carb oxyhemoglobin Reference Range for Smokers: 2.0-8.0% Performed By: #### A LLBG ####[facility] RESPIRATORYCLIA [id number] [facility]OS[facility] RESPIRATORY [id number] [address] [address] CO2 (Bld) [Partial pressure] 46 mm Hg Normal 36-46 [place] Comment on above: Order Comment: [facility] Type: ARTERIAL BLOOD SPECIMENOrdering Facility: [facility] Address: [address] [place] [address] Performed By: #### A LLBG ####[facility]ORY[facility] [id number] [facility] RESPIRATORY [id number] [address] [address] CO2 adjusted to patient's actual temperature (Bld) [Partial pressure] Normal [place] Comment on above: Order Comment: Speci men Type: ARTERIAL BLOOD SPECIMENOrdering Facility: [facility] Address: [address] [place] [address] Performed By: #### A LLBG ####[facility] [id number] [facility] RESPIRATORY [id number] [address] [address] HCO3 (Bld) [Moles/Vol] 31 mmol/L High 22-26 [facility] Comment on above: Order Comment: Speci men Type: ARTERIAL BLOOD SPECIMENOrdering Facility: [facility] Address: [address] [place] [address] Performed By: #### A LLBG ####[facility] [id number] HOSPITAL RESPIRATORY [id number] [address] [address] Hemoglobin (Bld) [Mass/Vol] 14.6 g/dL Normal 11.5-15.5 [place] Comment on above: Order Comment: Speci men Type: ARTERIAL BLOOD SPECIMENOrdering Facility: [facility] Address: [address] [place] [address] Performed By: #### A LLBG ####[facility] [id number] HOSPITAL RESPIRATORY [id number] [address] [address] Lactate [Moles/Vol] 0.9 mmol/L Normal 0.5-2.2 [facility] Comment on above: Order Comment: Speci men Type: ARTERIAL BLOOD SPECIMENOrdering Facility: [facility] Address: [address] [place] [address] Performed By: #### A LLBG ####[facility] [id number] HOSPITAL RESPIRATORY [id number] [address] [address] LITERS 2 Liters/min Normal [place] Comment on above: Order Comment: Speci men Type: ARTERIAL BLOOD SPECIMENOrdering Facility: [facility] Address: [address] [place] [address] Performed By: #### A LLBG ####[facility] RESPIRATORYIA [id number] [facility]OSP[facility] RESPIRATORY [id number] [address] [address] Methemoglobin (Bld) [Mass fraction] % Normal 0.0-1.5 [place] Comment on above: Order Comment: Speci men Type: ARTERIAL BLOOD SPECIMENOrdering Facility: [facility] Address: [address] [place] [address] Performed By: #### A LLBG ####[facility] [id number] [facility]OS[facility] RESPIRATORY [id number] [address] [address] O2 THERAPY NC = Nasal Cannula Normal [place] Comment on above: Order Comment: Speci men Type: ARTERIAL BLOOD SPECIMENOrdering Facility: [facility] Address: [address] [place] [address] Performed By: #### A LLBG ####[facility] [id number] [facility]OS[facility] RESPIRATORY [id number] [address] [address] Oxygen (Bld) [Partial pressure] 70 mm Hg Low 85-95 [place] Comment on above: Order Comment: Speci men Type: ARTERIAL BLOOD SPECIMENOrdering Facility: [facility] Address: [address] [place] [id number] Performed By: #### A LLBG ####[facility] [id number] HOSP[facility] RESPIRATORY [id number] [address] [address] Oxygen adjusted to patient's actual temperature (Bld) [Partial pressure] Normal [place] Comment on above: Order Comment: Speci men Type: ARTERIAL BLOOD SPECIMENOrdering Facility: [facility] Address: [address] [place] [id number] Performed By: #### A LLBG ####[facility] [id number] [facility]OS[facility] RESPIRATORY [id number] [address] [address] Oxyhemoglobin (BldA) [Mass fraction] 94 % Low 95-98 [place] Comment on above: Order Comment: Speci men Type: ARTERIAL BLOOD SPECIMENOrdering Facility: [facility] Address: [address] [place] [address] Performed By: #### A LLBG ####[facility] RESPIRATORYCLIA [id number] HOSPITAL RESPIRATORY [id number] [address] [address] pH (Bld) 7.43 [pH] Normal 7.35-7.45 [place] Comment on above: Order Comment: Speci men Type: ARTERIAL BLOOD SPECIMENOrdering Facility: [facility] Address: [address] [place] [address] Performed By: #### A LLBG ####[facility] RESPIRATORYCLIA [id number] HOSP[facility] RESPIRATORY [id number] [address] [address] pH adjusted to patient's actual temperature (Bld) Normal [place] Comment on above: Order Comment: Speci men Type: ARTERIAL BLOOD SPECIMENOrdering Facility: [facility] Address: [address] [place] [address] Performed By: #### A LLBG ####[facility] RESPIRATORYCLIA [id number] HOSPITAL RESPIRATORY [id number] [address] [address] Potassium [Moles/Vol] 3.9 mmol/L Normal 3.5-5.0 [facility] Comment on above: Order Comment: Speci men Type: ARTERIAL BLOOD SPECIMENOrdering Facility: [facility] Address: [address] [place] [address] Performed By: #### A LLBG ####[facility] RESPIRATORYCLIA [id number] [facility]OS[facility] RESPIRATORY [id number] [address] [address] Ammonia Plas-sCncon 12-05-19 25 Ammonia (P) [Moles/Vol] 29 umol/L Normal 11-51 [facility] [place] Comment on above: Order Comment: Speci men Type: BLOOD SPECIMENOrdering Facility: [facility] Address: [address] [place] [address] Performed By: #### 1 6362-6 ####[facility] LABORATORYCLIA [id number] [place] [address] [place] CONSULTon 12-04-2024 CONSULT HNO ID: [id number] Author: RACHEAL DE LA ROSA MD Service: [...] pm [place]: 1 pm to 5 pm [facility]: 3 pm to 5 pm Statutory holidays do not have teleneuro coverage. [facility]/[place] : During Off hours for Teleneurology please page (not call) [place] [facility] [address] clinical science consultant for concerns. [place]: During Off hours for Teleneurology please page (not call) [place] [facility] [address] clinical science consultant for concerns. [facility]: There is no off-hours coverage for [...] wake up for him, and was like " weight". Serological studies remarkable for WBC at 11.01 [...] for her cancer. Her neurologist is at [facility]. She is on sinemet [...] neoplasm of upper-outer (more content not included)... [facility] THERAPY [facility] 12-04-2024 THERAPY NT HNO ID: [id number] Author: ALAN IBANEZ OTR/L Service: Occupational Therapy Author Type: Occupational Therapist Type: Therapy (PT/OT/Speech/Resp) Filed: 12/04/2024 14:53 Note Text: Summary: OT Eval Occupational Therapy Evaluation Summary SERVICE DATE: 12/04/2024 SERVICE TIME: 1338 to 1428 ROOM: [id number] OT 6 Clicks Score: 9 DISCHARGE RECOMMENDATIONS [...] toilet. Spouse assists with toilet transfer at [facility], spouse completes hygiene, some incontinent epsidoes Pt spends all day in lift chair when not at daycare and spouse helps her out. Spouse reports 4 falls in past 6 mos. Spouse completes all chores. Got outpatient therapy but sounds like she did not progress and was d/c. They used "BIG" method and pt did not respond to [...] INTERVENTIONS Evaluation, Therapeutic (more content not included)... Normal [place] THERAPY NT HNO ID: [id number] Author: MIGEL HYATT, [facility]-WILDLIFE SCIENCE PROFESSOR Service: Speech/Swallow Author Type: Speech Language Pathologist Type: Therapy (PT/OT/Speech/Resp) Filed: 12/04/2024 12:43 Note Text: Speech Therapy Clinical Swallow Evaluation, Speech Evaluation SERVICE DATE: 12/04/2024 SERVICE TIME: 1158 to 1239 ROOM: [place] [address] IMPRESSION Functional communication without limitations in: Speech, [...] intake), Alternate bites and sips, Small Bite/Sip, Supervision/Assistanc e for meals Nursing Recommendations Promote insight/safety opportunities, [...] doing ok patient's daughter and state when WILDLIFE SCIENCE PROFESSOR woke pt up and spoke with her for a minute that it was the most responsive pt had been since being admitted to the hospital THERAPY DIAGNOSIS Cognitive-Communicati on Deficits, Dysphagia, oral phase TREATMENT INTERVENTIONS Speech Language Eval (58880), Clinical Swallow Evaluation (26299) Skilled Treatment Time (minutes): 41 TRAINING AND [...] personal questions such as How are you today?" and would sometimes give inappropriate responses such as answering "this is good" (referencing the food she was eating) to "Do you understand?" Pt was able to self feed when handed utensils. Pt tolerated all trials with no overt s/sx of aspiration but did have mild oral residue between bites. Pt's states that although pt was doing well durring session, she was not doing well last night or this morning when being fed and he mentioned that pt often chews when nothing is in her mouth. WILDLIFE SCIENCE PROFESSOR recommends follow up for cognition and assurance of tolerance of regular diet. Compensatory Strategies Utilized During Assessment: 1:1 Supervision, Alert (patient should be fully alert for P.O. intake), Alternate bites and sips, Small Bite/Sip [place] Swallow Protocol: Pass Suspected Esophageal Deficits: none suspected GOALS COGNITION: Patient will demonstrate knowledge of (more content not included)... Normal [place] THERAPY NT HNO ID: [id number] Author: ALAN IBANEZ OTR/West Service: Occupational Therapy Author Type: Occupational Therapist Type: Therapy (PT/OT/Speech/Resp) Filed: 12/04/2024 10:25 Note Text: Summary: OT MV OCCUPATIONAL THERAPY MISSED VISIT SERVICE DATE: 12/04/2024 SERVICE TIME: 1024 ROOM: [place] [address] Patient not seen due to Patient Not Available. Neuro at bedside. Will reattempt as schedule permits. SIGNATURE: VIVIENNE Jiménez/West PATIENT NAME: Madiha Perales DATE: December 04, 2024 TIME: 10:24 AM [facility] THERAPY NT HNO ID: [id number] Author: GAYE PACHECO PT Service: Physical Therapy Author Type: Physical Therapist Type: Therapy (PT/OT/Speech/Resp) Filed: 12/04/2024 09:20 Note Text: Summary: PT Evaluation Physical Therapy Evaluation Summary SERVICE DATE: 12/04/2024 SERVICE TIME: 836 to 06 ROOM: [place] [address] PT 6 Clicks Score: 8 DISCHARGE RECOMMENDATIONS [...] pt ag (more content not included)... Normal [place] TOXICOLOGY SCREEN, ROUTINE U RINEon 12-04-2024 Amphetamines Confirm (U) [Mass/Vol] Negative Normal Negative [place] Comment on above: Order Comment: Speci men Type: URINE SPECIMENOrdering Facility: [facility] Address: [address] [place] [address] Result Comment: Cuto ff threshold at 1000 ng/mL. Performed By: #### U TOX2 ####[facility] LABORATORYCLIA [id number] [address] CED BARBITURATES, URINE Negative Normal Negative [facility] Comment on above: Order Comment: Speci men Type: URINE SPECIMENOrdering Facility: [facility] Address: [address] [place] [address] Result Comment: Cuto ff threshold at 200 ng/mL. Performed By: #### U TOX2 ####[facility] LABORATORYCLIA [id number] [place] [address] [place] BENZODIAZEPINES, UR Negative Normal Negative [facility] Comment on above: Order Comment: Speci men Type: URINE SPECIMENOrdering Facility: [facility] Address: [address] [place] [address] Result Comment: Cuto ff threshold at 200 ng/mL. Performed By: #### U TOX2 ####[facility] LABORATORYCLIA [id number] [place] [address] [facility] OF CED Cannabinoids Screen Ql (U) Negative Normal Negative [place] Comment on above: Order Comment: Speci men Type: URINE SPECIMENOrdering Facility: [facility] Address: [address] [place] [address] Result Comment: Cuto ff threshold at 50 ng/mL. Performed By: #### U TOX2 ####[facility] LABORATORYCLIA [id number] [place] [address] [place] Cocaine Ql (U) Negative Normal Negative [place] Comment on above: Order Comment: Speci men Type: URINE SPECIMENOrdering Facility: [facility] Address: [address] [place] [address] Result Comment: Cuto ff threshold at 300 ng/mL. Performed By: #### U TOX2 ####[facility] LABORATORYCLIA [id number] [place] [address] [place] Ethanol (U) [Mass/Vol] <11 Normal <11 [facility] Comment on above: Order Comment: Speci men Type: URINE SPECIMENOrdering Facility: [facility] Address: [address] [place] [address] Performed By: #### U TOX2 ####[facility] LABORATORYCLIA [id number] [place] [address] [place] Opiates Screen Ql (U) Negative Normal Negative [facility] Comment on above: Order Comment: Speci men Type: URINE SPECIMENOrdering Facility: [facility] Address: [address] [place] [address] Result Comment: Cuto ff threshold at 300 ng/mL. Performed By: #### U TOX2 ####[facility] LABORATORYCLIA [id number] [place] [address] [place] oxyCODONE cutoff Screen (U) [Mass/Vol] Negative Normal Negative [place] Comment on above: Order Comment: Speci men Type: URINE SPECIMENOrdering Facility: [facility] Address: [address] [place] [address] Result Comment: Cuto ff threshold at 100 ng/mL. Performed By: #### U TOX2 ####CON[facility] LABORATORYCLIA [id number] [place] [address] [place] Phencyclidine Ql (U) Negative Normal Negative [facility] Comment on above: Order Comment: Speci men Type: URINE SPECIMENOrdering Facility: [facility] Address: [facility] [place] [address] Result Comment: Cuto ff threshold at 25 ng/mL. Performed By: #### U TOX2 ####[facility] LABORATORYCLIA [id number] [place] [address] [facility] ALLIED HEALTHon 12-03-2024 ALLIED HEALTH HNO ID: [id number] Author: LILIAN SHAW CT Service: Radiology Author Type: Technologist Type: Allied Health Filed: 12/03/2024 18:00 Note Text: Radiology [...] PATIENT PRESENTS WITH AN IMPLANTABLE OR ATTACHED SUGAR REFINERY SUPERVISOR: No RADIOLOGY DEPARTMENT: MR; Exam(s) Completed: Head: Routine Brain. Lavender Administered: No PERIPHERAL IV DATA: Not applicable SIGNED BY: RICHARD Viramontes December 03, 2024 6:00 PM Normal [facility] HEALTH HNO ID: [id number] Author: PAULA WOOSD, TECHNOLOGIST Service: Radiology Author Type: Technologist Type: Allied Health Filed: 12/03/2024 08:24 Note Text: Radiology [...] PATIENT PRESENTS WITH AN IMPLANTABLE OR ATTACHED SUGAR REFINERY SUPERVISOR: No RADIOLOGY DEPARTMENT: CT; Exam(s) Completed: Brain PERIPHERAL IV DATA: Not applicable Removed pt wedding ring per 's request. Ring given to in ER room 10 SIGNED BY: Paula Woods, TECHNOLOGIST December 03, 2024 8:23 AM [facility] ALLIED HEALTH HNO ID: [id number] Author: DENNIS WHITTEN Tech Service: Radiology Author Type: Poultry Hatchery Laborer Type: Allied Health Filed: 12/03/2024 08:19 Note [...] PATIENT PRESENTS WITH AN IMPLANTABLE OR ATTACHED SUGAR REFINERY SUPERVISOR: No RADIOLOGY DEPARTMENT: General X-ray: Exam(s) Completed: Chest X-Ray PERIPHERAL IV DATA: Not applicable SIGNED BY: Lobo Knight December 03, 2024 8:18 AM [facility] CBC W Auto Differential pane l (Bld)on 12-03-2024 Basophils (Bld) [#/Vol] 0.04 10*3/uL Normal <0.11 [place] Comment on above: Order Comment: Speci men Type: BLOOD SPECIMENOrdering Facility: [facility] Address: [address] [place] [address] Performed By: #### 5 7021-8 ####[facility] LABORATORYCLIA [id number] [place] [address] [place] Basophils/100 WBC (Bld) 0.4 % Normal [facility] Comment on above: Order Comment: Speci men Type: BLOOD SPECIMENOrdering Facility: [facility] Address: [address] [place] [address] Performed By: #### 5 7021-8 ####CON[facility] LABORATORYCLIA [id number] [address] [place] Differential cell count method Nom (Bld) Auto Normal [place] Comment on above: Order Comment: Speci men Type: BLOOD SPECIMENOrdering Facility: [facility] Address: [address] [place] [address] Performed By: #### 5 7021-8 ####[facility] LABORATORYCLIA [id number] [place] [address] [place] Eosinophils (Bld) [#/Vol] 0.08 10*3/uL Normal <0.46 [place] Comment on above: Order Comment: Speci men Type: BLOOD SPECIMENOrdering Facility: [facility] Address: [address] [place] [address] Performed By: #### 5 7021-8 ####[facility] LABORATORYCLIA [id number] [address] STATES [place] Eosinophils/100 WBC (Bld) 0.7 % Normal [place] Comment on above: Order Comment: Speci men Type: BLOOD SPECIMENOrdering Facility: [facility] Address: [address] [place] [address] Performed By: #### 5 7021-8 ####CONNER LABORATORYCLIA [id number] [address] [place] Erythrocyte distribution width (RBC) [Ratio] 14.0 % Normal 11.5-15.0 [place] Comment on above: Order Comment: Speci men Type: BLOOD SPECIMENOrdering Facility: [facility] Address: [address] [place] [address] Performed By: #### 5 7021-8 ####CON[facility] LABORATORYCLIA [id number] [address] OF CED Hematocrit (Bld) [Volume fraction] 44.6 % Normal 36.0-46.0 [place] Comment on above: Order Comment: Speci men Type: BLOOD SPECIMENOrdering Facility: [facility] Address: [address] [place] [address] Performed By: #### 5 7021-8 ####CON[facility] LABORATORYCLIA [id number] [place] [address] [place] Hemoglobin (Bld) [Mass/Vol] 14.6 g/dL Normal 11.5-15.5 [place] Comment on above: Order Comment: Speci men Type: BLOOD SPECIMENOrdering Facility: [facility] Address: [address] [place] [address] Performed By: #### 5 7021-8 ####[facility] LABORATORYCLIA [id number] [place] [address] [place] Immature granulocytes (Bld) [#/Vol] 10*3/uL Normal <0.10 [place] Comment on above: Order Comment: Speci men Type: BLOOD SPECIMENOrdering Facility: [facility] Address: [address] [place] [address] Performed By: #### 5 7021-8 ####CONNER LABORATORYCLIA [id number] [place] [address] [place] Immature granulocytes/100 WBC (Bld) 0.2 % Normal [place] Comment on above: Order Comment: Speci men Type: BLOOD SPECIMENOrdering Facility: [facility] Address: [address] [place] [address] Performed By: #### 5 7021-8 ####CON[facility] LABORATORYCLIA [id number] [place] [address] [place] Lymphocytes (Bld) [#/Vol] 0.83 10*3/uL Low 1.00-4.00 [place] Comment on above: Order Comment: Speci men Type: BLOOD SPECIMENOrdering Facility: [facility] Address: [address] [place] [address] Performed By: #### 5 7021-8 ####CON[facility] LABORATORYCLIA [id number] [place] [address] [place] Lymphocytes/100 WBC (Bld) 7.5 % Normal [place] Comment on above: Order Comment: Speci men Type: BLOOD SPECIMENOrdering Facility: [facility] Address: [address] [place] [address] Performed By: #### 5 7021-8 ####[facility] LABORATORYCLIA [id number] [address] MCH (RBC) [Entitic mass] 30.9 pg Normal 26.0-34.0 [place] Comment on above: Order Comment: Speci men Type: BLOOD SPECIMENOrdering Facility: [facility] Address: [address] [place] [address] Performed By: #### 5 7021-8 ####[facility] LABORATORYCLIA [id number] [address] C[place] MCHC (RBC) [Mass/Vol] 32.7 g/dL Normal 30.5-36.0 [facility] Comment on above: Order Comment: Speci men Type: BLOOD SPECIMENOrdering Facility: [facility] Address: [address] [place] [address] Performed By: #### 5 7021-8 ####[facility] LABORATORYCLIA [id number] [address] MCV (RBC) [Entitic vol] 94.5 fL Normal 80.0-100.0 [facility] [place] Comment on above: Order Comment: Speci men Type: BLOOD SPECIMENOrdering Facility: [facility] Address: [address] [place] [address] Performed By: #### 5 7021-8 ####CON[facility] LABORATORYCLIA [id number] [address] Monocytes (Bld) [#/Vol] 0.67 10*3/uL Normal <0.87 [place] Comment on above: Order Comment: Speci men Type: BLOOD SPECIMENOrdering Facility: [facility] Address: [address] [place] [address] Performed By: #### 5 7021-8 ####[facility] LABORATORYCLIA [id number] [address] Monocytes/100 WBC (Bld) 6.1 % Normal [facility] [place] Comment on above: Order Comment: Speci men Type: BLOOD SPECIMENOrdering Facility: [facility] Address: [address] [place] [address] Performed By: #### 5 7021-8 ####CON[facility] LABORATORYCLIA [id number] [place] [address] [place] Neutrophils (Bld) [#/Vol] 9.37 10*3/uL High 1.45-7.50 [place] Comment on above: Order Comment: Speci men Type: BLOOD SPECIMENOrdering Facility: [facility] Address: [address] [place] [address] Performed By: #### 5 7021-8 ####CON[facility] LABORATORYCLIA [id number] [address] OF CED Neutrophils/100 WBC (Bld) 85.1 % Normal [place] Comment on above: Order Comment: Speci men Type: BLOOD SPECIMENOrdering Facility: [facility] Address: [address] [place] [address] Performed By: #### 5 7021-8 ####CON[facility] LABORATORYCLIA [id number] [place] [address] [place] Nucleated RBC (Bld) [#/Vol] 10*3/uL Normal <0.01 [place] Comment on above: Order Comment: Speci men Type: BLOOD SPECIMENOrdering Facility: [facility] Address: [address] [place] [address] Performed By: #### 5 7021-8 ####CON[facility] LABORATORYCLIA [id number] [place] [address] [place] Nucleated RBC/100 WBC (Bld) [Ratio] 0.0 /100 WBC Normal [place] Comment on above: Order Comment: Speci men Type: BLOOD SPECIMENOrdering Facility: [facility] Address: [address] [place] [address] Performed By: #### 5 7021-8 ####CON[facility] LABORATORYCLIA [id number] [place] [address] [place] Platelet mean volume (Bld) [Entitic vol] 9.8 fL Normal 9.0-12.7 [place] Comment on above: Order Comment: Speci men Type: BLOOD SPECIMENOrdering Facility: [facility] Address: [address] [place] [address] [place] [address] Performed By: #### 5 7021-8 ####CON[facility] LABORATORYCLIA [id number] [address] OF CED Platelets (Bld) [#/Vol] 201 10*3/uL Normal 150-400 [place] Comment on above: Order Comment: Speci men Type: BLOOD SPECIMENOrdering Facility: [facility] Address: [address] [place] [address] Performed By: #### 5 7021-8 ####CON[facility] LABORATORYCLIA [id number] [place] [address] [place] RBC (Bld) [#/Vol] 4.72 10*6/uL Normal 3.90-5.20 [facility] Comment on above: Order Comment: Speci men Type: BLOOD SPECIMENOrdering Facility: [facility] Address: [address] [place] [address] Performed By: #### 5 7021-8 ####CON[facility] LABORATORYCLIA [id number] [address] OF [place] WBC (Bld) [#/Vol] 11.01 10*3/uL High 3.70-11.00 [facility] Comment on above: Order Comment: Speci men Type: BLOOD SPECIMENOrdering Facility: [facility] Address: [address] [place] [address] Performed By: #### 5 7021-8 ####CON[facility] LABORATORYCLIA [id number] [address] OF CED CT BRAIN WO IVCONon 12-04-19 CT BRAIN WO IVCON * * *Final Report* * * DATE OF EXAM: Dec 03 2024 8:29AM [facility] 0504 - CT BRAIN WO IVCON / [...] central white matter volume loss or normal pressure/communicatin g hydrocephalus. 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: JARVIS Transcribe Date/Time: Dec 03 2024 8:45A Dictated by : LINDSEY GARCES MD This examination was interpreted and the report reviewed and electronically signed by: LINDSEY GARCES MD on Dec 03 2024 8:59AM EST [id number] Normal [place] Comprehensive metabolic 2000 panelon 12-03-2024 Albumin [Mass/Vol] 4.5 g/dL Normal 3.9-4.9 [place] Comment on above: Order Comment: Speci men Type: BLOOD SPECIMENOrdering Facility: [facility] Address: [address] [place] [address] Performed By: #### 2 4323-8, 3016-3, LIPNF ####[facility] LABORATORYCLIA [id number] [address] ALP [Catalytic activity/Vol] 106 U/L Normal 34-123 [place] Comment on above: Order Comment: Speci men Type: BLOOD SPECIMENOrdering Facility: [facility] Address: [address] [place] [address] Performed By: #### 2 4323-8, 3016-3, LIPNF ####CON[facility] LABORATORYCLIA [id number] [address] STATES [facility] ALT [Catalytic activity/Vol] 7 U/L Normal 7-38 [place] Comment on above: Order Comment: Speci men Type: BLOOD SPECIMENOrdering Facility: [facility] Address: [address] [place] [address] Performed By: #### 2 4323-8, 3016-3, LIPNF ####CON[facility] LABORATORYCLIA [id number] [address] Anion gap [Moles/Vol] 11 mmol/L Normal 8-15 [facility] Comment on above: Order Comment: Speci men Type: BLOOD SPECIMENOrdering Facility: [facility] Address: [address] [place] [address] Performed By: #### 2 4323-8, 3016-3, LIPNF ####[facility] LABORATORYCLIA [id number] [address] STATES [place] AST [Catalytic activity/Vol] 16 U/L Normal 13-35 [place] Comment on above: Order Comment: Speci men Type: BLOOD SPECIMENOrdering Facility: [facility] Address: [address] [place] [address] Performed By: #### 2 4323-8, 6-3, LIPNF ####CON[facility] LABORATORYCLIA [id number] [place] [address] [place] Bilirubin [Mass/Vol] 0.8 mg/dL Normal 0.2-1.3 [facility] Comment on above: Order Comment: Speci men Type: BLOOD SPECIMENOrdering Facility: [facility] Address: [address] [place] [address] Performed By: #### 2 4323-8, 3015-3, LIPNF ####[facility] LABORATORYCLIA [id number] [place] [address] [place] Calcium [Mass/Vol] 9.3 mg/dL Normal 8.5-10.2 [place] Comment on above: Order Comment: Speci men Type: BLOOD SPECIMENOrdering Facility: [facility] Address: [address] [place] [address] Performed By: #### 2 4323-8, 3015-3, LIPNF ####[facility] LABORATORYCLIA [id number] [place] [address] [place] Chloride [Moles/Vol] 101 mmol/L Normal 98-107 [facility] Comment on above: Order Comment: Speci men Type: BLOOD SPECIMENOrdering Facility: [facility] Address: [address] [place] [address] Performed By: #### 2 4323-8, 3015-3, LIPNF ####CON[facility] LABORATORYCLIA [id number] [place] [address] [place] CO2 [Moles/Vol] 28 mmol/L Normal 22-30 [place] Comment on above: Order Comment: Speci men Type: BLOOD SPECIMENOrdering Facility: [facility] Address: [address] [place] [address] Performed By: #### 2 4323-8, 6-3, LIPNF ####[facility] LABORATORYCLIA [id number] [place] [address] [place] Creatinine [Mass/Vol] 0.72 mg/dL Normal 0.58-0.96 [facility] Comment on above: Order Comment: Yoav lujan Type: BLOOD SPECIMENOrdering Facility: [facility] Address: [address] [place] [address] Performed By: #### 2 4323-8, 3016-3, LIPNF ####CON[facility] LABORATORYCLIA [id number] [place] [id number] [facility] Creatinine and Glomerular filtration rate.predicted panel (S/P/Bld) 86 mL/min/1.73m??? Normal >=60 [place] Comment on above: Order Comment: Yoav lujan Type: BLOOD SPECIMENOrdering Facility: [facility] Address: [address] [place] [address] Result Comment: Mateo mated Glomerular Filtration Rate [...] GFR. Performed By: #### 2 4323-8, 3016-3, LIPNF ####CON[facility] LABORATORYCLIA [id number] [place] [address] [place] Glucose [Mass/Vol] 127 mg/dL High 74-99 [place] Comment on above: Order Comment: Yoav lujan Type: BLOOD SPECIMENOrdering Facility: [facility] Address: [address] [place] [address] Result Comment: The [place] Diabetes Association (ADA) provides guidance for cutoff [...] Standards of Medical Care in Diabetes 2016, [place] [employer] Association. Diabetes Care. 2016.39(Suppl 1). Performed By: #### 2 4323-8, 3016-3, LIPNF ####CON[facility] LABORATORYCLIA [id number] [place] [address] [place] Potassium [Moles/Vol] 4.2 mmol/L Normal 3.7-5.1 [facility] Comment on above: Order Comment: Speci men Type: BLOOD SPECIMENOrdering Facility: [facility] Address: [address] [place] [address] Performed By: #### 2 4323-8, 6-3, LIPNF ####[facility] LABORATORYCLIA [id number] [place] [address] [place] Protein [Mass/Vol] 7.6 g/dL Normal 6.3-8.0 [place] Comment on above: Order Comment: Speci men Type: BLOOD SPECIMENOrdering Facility: [facility] Address: [address] [place] [address] Performed By: #### 2 4323-8, 6-3, LIPNF ####CON[facility] LABORATORYCLIA [id number] [place] [address] [place] Sodium [Moles/Vol] 140 mmol/L Normal 136-144 [place] Comment on above: Order Comment: Speci men Type: BLOOD SPECIMENOrdering Facility: [facility] Address: [address] [place] [address] Performed By: #### 2 4323-8, 6-3, LIPNF ####CON[facility] LABORATORYCLIA [id number] [place] [address] [place] Urea nitrogen [Mass/Vol] 15 mg/dL Normal 7-21 [place] Comment on above: Order Comment: Speci men Type: BLOOD SPECIMENOrdering Facility: [facility] Address: [address] [place] [address] Performed By: #### 2 4323-8, 6-3, LIPNF ####CON[facility] LABORATORYCLIA [id number] [place] [address] [place] OF CED ED NOTEon 12-03-2024 ED NOTE HNO ID: [id number] Author: JOLLY HURD RN Service: Nursing Author Type: Registered Nurse Type: ED Notes Filed: 12/03/2024 11:42 Note Text: Second heads up given to 3 south battery recharger [facility] ED NOTE HNO ID: [id number] Author: JOLLY HURD RN Service: Nursing Author Type: Registered Nurse Type: ED Notes Filed: 12/03/2024 10:56 Note Text: Heads up given to 3 south battery recharger [facility] ED NOTE HNO ID: [id number] Author: JOLLY HURD RN Service: Nursing Author Type: Registered Nurse Type: ED Notes Filed: 12/03/2024 10:52 Note Text: Pt awake, talking and provided with snacks. [facility] ED NOTE HNO ID: [id number] Author: JOLLY HURD RN Service: Nursing Author Type: Registered Nurse Type: ED Notes Filed: 12/03/2024 17:26 Note Text: Pt's requested we remove pt's wedding ring. Ring removed and given to at bedside. [facility] ED PROV NOTEon 12-03-2024 ED PROV NOTE HNO ID: [id number] Author: LUANA MENDOZA DO Service: Emergency Medicine [...] Nickel Unknown Penicillins Unknown Review of Systems Psychiatric/Behaviora l: Positive for confusion. All other systems reviewed [...] not communicati (more content not included)... Normal [place] EKGon 12-03-2024 Electrocardiogram Ventricular Rate : 9 2 BPM Atrial Rate : 92 BPM P-R Interval : 148 ms QRS Duration : 76 ms Q-T Interval : 364 ms QTC Calculation(Bazett) : 450 ms Calculated P [place] : 5 degrees Calculated R [place] : -7 degrees Calculated T [place] : 23 degrees NORMAL SINUS RHYTHM CANNOT RULE OUT ANTERIOR INFARCT , AGE UNDETERMINED ABNORMAL ECG Confirmed by LUANA MENDOZA DO ([id number]) on 12/03/2024 2:32:05 PM NAME : MADIHA PERALES PID : [id number] : 1945 Gender : Female Race : ORD : Procedure Date : Dec 03 2024 07:59:58 Edit Date : Dec 03 2024 14:32:08 Diagnosis: NORMAL SINUS RHYTHM CANNOT RULE OUT ANTERIOR INFARCT , AGE UNDETERMINED ABNORMAL ECG Confirmed by LUANA MENDOZA DO ([id number]) on 12/03/2024 2:32:05 PM Test Reason : Location : 1 : ER ED Overread By : LUANA MENDOZA DO Edited By : LUANA MENDOZA DO Referred By : , Acquired by : [id number], Normal [place] HISTORY PHYSICALon HISTORY PHYSICAL HNO ID: [id number] Author: ANAHI POLANCO MD Service: Hospital Medicine Author Type: Physician Type: H&P Filed: 12/03/2024 16:43 Note Text: DEPARTMENT OF HOSPITAL MEDICINE HISTORY AND PHYSICAL EXAM SERVICE DATE: 12/03/2024 SERVICE TIME: 3:58 PM Primary Care Physician: Marie Devi MD NIGHT AND WEEKEND COVERAGE: [place] COVERAGE: Days: [phone], please page attending physician. Nights: [phone], please page [place] [facility]ist Night coverage pager [phone]. 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 Patient is a poor historian and most of the history is obtained by talking to the daughter at the bedside. As per the daughter the patient was in her usual state of health until yesterday and went to her adult daycare. This morning when the tried to wake her up she was not responding, he tried dressing her up and she was like" weight". It took the about 30 minutes to move her from the house to the car, on arrival to the ER it took 5-6 people to move her out of the car into the ER. In the ER her temperature was 98.7F, [place] 88/[place] [address], RR of 22/min, 99% on room air. [...] every 6 hours as needed for nausea/vomiting. Facility-Administered Medications: None ALLERGIES Allergen Reactions Alendronic Acid Unknown Asa [Salicylates] Unknown Cephalexin Unknown Lyrica [Pregabalin] Unknown Mri Contrast [Iodin* Hives Hives x 5 locations, redness of right eye. Nickel Unknown Penicillins Unknown REVIEW OF SYSTEM: GENERAL: No (more content not included)... Normal [place] LIPID PANEL, NONFASTINGon Cholesterol [Mass/Vol] 152 mg/dL Normal <200 [facility] Comment on above: Order Comment: Yoav lujan Type: BLOOD SPECIMENOrdering Facility: [facility] Address: [address] [place] [address] Result Comment: <200 mg/dL, Desirable 200-239 mg/dL, Borderline high >239 mg/dL, High Performed By: #### 2 4323-8, 3016-3, LIPNF ####[facility] LABORATORYCLIA [id number] [place] [address] [place] HDL CHOLESTEROL, NF 54 mg/dL Normal >39 [facility] Comment on above: Order Comment: Speci men Type: BLOOD SPECIMENOrdering Facility: [facility] Address: [address] [place] [address] Result Comment: 40-5 9 mg/dL, Acceptable >59 mg/dL, High: Negative risk factor for coronary heart disease <40 mg/dL, Low: Positive risk factor for coronary heart disease Performed By: #### 2 4323-8, 3016-3, LIPNF ####CON[facility] LABORATORYCLIA [id number] [address] LDL CHOLESTEROL CALCULATED, NF 84 mg/dL Normal <100 [place] Comment on above: Order Comment: Speci men Type: BLOOD SPECIMENOrdering Facility: [facility] Address: [address] [place] [address] Result Comment: <100 mg/dL, Optimal 100-129 mg/dL, Near optimal/above optimal 130-159 mg/dL, Borderline high 160-189 mg/dL, High >189 mg/dL, Very high Secondary prevention optimal LDL Cholesterol levels are recommended to be <70 mg/dL LDL cholesterol is calculated using the Lock-NIH equation. Performed By: #### 2 4323-8, 6-3, LIPNF ####CON[facility] LABORATORYCLIA [id number] [address] LDL/HDL RATIO, NF 1.56 mg/dL Normal <2.54 [place] Comment on above: Order Comment: Nehemiahi tai Type: BLOOD SPECIMENOrdering Facility: [facility] Address: [address] [place] [address] Result Comment: Refe rence: 1. National Cholesterol Education Program ATP III Guideline At-A-Glance Quick Desk Reference: National Heart, Lung, and Blood [place]. National Institutes of Health. 2001: NIH Publication No. 01-3305. 2. An International Atherosclerosis Society position paper: global recommendations for the management of dyslipidemia: executive summary, Atherosclerosis. 2014: 232(2):410-413. Performed By: #### 2 4323-8, 3016-3, LIPNF ####CONNER LABORATORYCLIA [id number] [address] OF [facility] NON HDL CHOL, NF 98 mg/dL Normal <130 [place] Comment on above: Order Comment: Speci men Type: BLOOD SPECIMENOrdering Facility: [facility] Address: [address] [place] [address] Result Comment: <130 mg/dL, Optimal 130-159 mg/dL, Near optimal/above optimal 160-189 mg/dL, Borderline high 190-219 mg/dL, High >219 mg/dL, Very high Secondary prevention optimal non HDL Cholesterol levels are recommended to be <100 mg/dL Performed By: #### 2 4323-8, 3016-3, LIPNF ####[facility] LABORATORYCLIA [id number] [address] T CHOL/HDL RATIO NF 2.81 mg/dL Normal <5.10 [facility] Comment on above: Order Comment: Speci men Type: BLOOD SPECIMENOrdering Facility: [facility] Address: [address] [place] [address] Performed By: #### 2 4323-8, 3016-3, LIPNF ####CONNRE LABORATORYCLIA [id number] [address] TRIGLYCERIDES, NF 70 mg/dL Normal <150 [place] Comment on above: Order Comment: Speci men Type: BLOOD SPECIMENOrdering Facility: [facility] Address: [address] [place] [address] Result Comment: <150 mg/dL, Normal 150-199 mg/dL, Borderline high 200-499 mg/dL, High >499 mg/dL, Very high Performed By: #### 2 4323-8, 6-3, LIPNF ####CONNER LABORATORYCLIA [id number] [address] VLDL CHOLESTEROL, NF 11 mg/dL Normal <30 [facility] Comment on above: Order Comment: Speci men Type: BLOOD SPECIMENOrdering Facility: [facility] Address: [address] [place] [address] Performed By: #### 2 4323-8, 3016-3, LIPNF ####CONNER LABORATORYCLIA [id number] [address] OF CED MRI BRAIN WO IVCONon 06 025 MRI BRAIN WO IVCON * * *Final Report* * * DATE OF EXAM: Dec 03 2024 6:17PM [facility] 0294 - MRI BRAIN WO IVCON / PROCEDURE REASON: Delirium * * * * Physician Interpretation * * * * EXAMINATION: MRI BRAIN WO IVCON HISTORY: Delirium - - - Altered state of awareness - Delirium - [id number] - - - - TECHNIQUE: MRI brain [...] acute infarct. Extensive chronic changes as detailed. 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[facility] Transcribe Date/Time: Dec 03 2024 8:33P Dictated by : SAGE ÁLVAREZ MD This examination was interpreted and the report reviewed and electronically signed by: SAGE ÁLVAREZ MD on Dec 03 2024 8:43PM EST [id number] N Normal [place] SEPSIS LACTATE W/ REFLEX (IN ITIAL)on 12-03-2024 Lactate [Moles/Vol] 1.4 mmol/L Normal 0.5-2.0 [facility] Comment on above: Order Comment: Speci men Type: BLOOD SPECIMENOrdering Facility: [facility] Address: [address] [place] [address] [place] [id number] Performed By: #### S LACTR ####UBALDO LABORATORYCLIA [id number] [place] [address] [facility] THERAPY NTon 12-03-2024 THERAPY NT HNO ID: [id number] Author: ORQUIDEA VELÁZQUEZ OT/L Service: Occupational Therapy Author Type: Occupational Therapist Type: Therapy (PT/OT/Speech/Resp) Filed: 12/03/2024 14:34 Note Text: Summary: OT Missed Visit OCCUPATIONAL THERAPY MISSED VISIT SERVICE DATE: 12/03/2024 SERVICE TIME: 1430 ROOM: [place] [address] Patient not seen due to Incomplete Orders. Awaiting ED note and/or HANDP in order to complete chart review of patient and determine clinical appropriateness for participation in therapy evaluation at this time. Will re-attempt as schedule allows pending pt appropriateness. SIGNATURE: CARY Bhardwaj PATIENT NAME: Madiha Perales DATE: December 03, 2024 TIME: 2:31 PM Normal [place] TSH SerPl-aCncon 12-03-2024 TSH Qn 1.260 m[IU]/L Normal 0.270-4.200 [place] Comment on above: Order Comment: Speci men Type: BLOOD SPECIMENOrdering Facility: [facility] Address: [address] [place] [address] Performed By: #### 2 4323-8, 3016-3, LIPNF ####CONNER LABORATORYCLIA [id number] [place], [place] [id number] [place] [address] Urinalysis complete panel (U )on 12-03-2024 Bacteria LM.HPF (Urine sed) [#/Area] Few Abnormal None Seen [place] Comment on above: Order Comment: Speci men Type: URINE SPECIMENOrdering Facility: [facility] Address: [address] [place] [address] Performed By: #### 2 4356-8 ####[facility] LABORATORYCLIA [id number] [address] Bilirubin Ql (U) Negative Normal Negative [place] Comment on above: Order Comment: Speci men Type: URINE SPECIMENOrdering Facility: [facility] Address: [address] [place] [address] Performed By: #### 2 4356-8 ####[facility] LABORATORYCLIA [id number] [address] Clarity (Unsp spec) Clear Normal Clear [facility] Comment on above: Order Comment: Speci men Type: URINE SPECIMENOrdering Facility: [facility] Address: [address] [place] [address] Performed By: #### 2 4356-8 ####CONNER LABORATORYCLIA [id number] [address] Color (U) Yellow Normal Yellow [place] Comment on above: Order Comment: Speci men Type: URINE SPECIMENOrdering Facility: [facility] Address: [address] [place] [address] Performed By: #### 2 4356-8 ####CONNER LABORATORYCLIA [id number] [address] Epithelial cells LM.HPF (Urine sed) [#/Area] Few Normal [place] Comment on above: Order Comment: Speci men Type: URINE SPECIMENOrdering Facility: [facility] Address: [address] [place] [address] Performed By: #### 2 4356-8 ####CONNER LABORATORYCLIA [id number] [address] Glucose Test strip (U) [Mass/Vol] Negative Normal Negative [facility] Comment on above: Order Comment: Speci men Type: URINE SPECIMENOrdering Facility: [facility] Address: [address] [place] [address] Performed By: #### 2 4356-8 ####CONNER LABORATORYCLIA [id number] [place] [address] [place] Hemoglobin Ql (U) Trace Abnormal Negative [facility] Comment on above: Order Comment: Speci men Type: URINE SPECIMENOrdering Facility: [facility] Address: [address] [place] [address] Performed By: #### 2 4356-8 ####CONNER LABORATORYCLIA [id number] [address] STATES OF [place] Ketones Ql (U) Negative Normal Negative [place] Comment on above: Order Comment: Speci men Type: URINE SPECIMENOrdering Facility: [facility] Address: [address] [place] [address] Performed By: #### 2 4356-8 ####CONNER LABORATORYCLIA [id number] [address] STATES [facility] Leukocyte esterase Test strip Ql (U) Trace Abnormal Negative [place] Comment on above: Order Comment: Speci men Type: URINE SPECIMENOrdering Facility: [facility] Address: [address] [place] [address] Performed By: #### 2 4356-8 ####CONNER LABORATORYCLIA [id number] [place] [address] [place] Nitrite Ql (U) Negative Normal Negative [place] Comment on above: Order Comment: Speci men Type: URINE SPECIMENOrdering Facility: [facility] Address: [address] [place] [address] Performed By: #### 2 4356-8 ####CONNER LABORATORYCLIA [id number] [address] OF CED pH (U) 7.0 [pH] Normal 5.0-8.0 [facility] Comment on above: Order Comment: Speci men Type: URINE SPECIMENOrdering Facility: [facility] Address: [address] [place] [address] Performed By: #### 2 4356-8 ####CONNER LABORATORYCLIA [id number] [address] STATES [facility] Protein (U) [Mass/Vol] Negative Normal Negative [facility] Comment on above: Order Comment: Speci men Type: URINE SPECIMENOrdering Facility: [facility] Address: [address] [place] [address] Performed By: #### 2 4356-8 ####CONNER LABORATORYCLIA [id number] [place] [address] [place] RBC LM.HPF (Urine sed) [#/Area] 0-3 /HPF Normal 0-3 /HPF [place] Comment on above: Order Comment: Speci men Type: URINE SPECIMENOrdering Facility: [facility] Address: [address] [place] [address] Performed By: #### 2 4356-8 ####CONNER LABORATORYCLIA [id number] [address] Specific gravity (U) [Rel density] 1.015 Normal 1.005-1.030 [place] Comment on above: Order Comment: Speci men Type: URINE SPECIMENOrdering Facility: [facility] Address: [address] [place] [address] Performed By: #### 2 4356-8 ####CONNER LABORATORYCLIA [id number] [address] Urobilinogen Ql (U) 0.2 EU/dL Normal 0.2-1.0 EU/dL [place] Comment on above: Order Comment: Speci men Type: URINE SPECIMENOrdering Facility: [facility] Address: [address] [place] [address] Performed By: #### 2 4356-8 ####CONNER LABORATORYCLIA [id number] [address] STATES OF [place] WBC LM.HPF (Urine sed) [#/Area] 0-5 /HPF Normal 0-5 /HPF [place] Comment on above: Order Comment: Speci men Type: URINE SPECIMENOrdering Facility: [facility] Address: [facility] [place] [id number] Performed By: #### 2 4356-8 ####UBALDO LABORATORYCLIA [id number] [place] [address] [place] XR CHEST 1V FRONTAL PORTon 0 12-03-2024 [...] silhouette. Other: . IMPRESSION: No acute process. 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: [facility] Transcribe Date/Time: Dec 03 2024 8:33A Dictated by : BOOKER PEDRAZA MD This examination was interpreted and the report reviewed and electronically signed by: BOOKER PEDRAZA MD on Dec 03 2024 8:34AM EST [id number] N Normal [place] 25-hydroxyvitamin D3 [Mass/V ol]on 09-18-2024 25-hydroxyvitamin D [Mass/Vol] 51 ng/mL 30 - 100 ng/mL [facility] Comment on above: Vitamin D Status 25- [place] Vitamin D: Deficiency: <20 ng/mL Insufficiency: 20 - 29 ng/mL Optimal: > or = 30 ng/mL For 25-OH Vitamin D testing on patients on D2-supplementation and patients for whom quantitation of D2 and D3 fractions is required, the QuestAssureD(TM) 25-OH VIT D, (D2,D3), LC/MS/MS is recommended: order code 46487 (patients >2yrs). See Note 1 Note 1 For additional information, please refer to http://education.trueEX.PayPay/faq/NLW472 (This link is being provided for informational/ educational purposes only.) CBC (INCLUDES DIFF/PLT)on Basophils (Bld) [#/Vol] 0.027 10*3/uL Normal 0-200 [facility] Comment on above: Performed By: #### 3 6127, 21220, 6399, 72112, 56317 #### [facility] [place] [address] Ethyl[employer] Converter Operator: Jame Mena MD Basophils/100 WBC (Bld) 0.4 % Normal [facility] Comment on above: Performed By: #### 3 6127, 71632, 6399, 61787, 26053 #### [facility] [place] [address] [employer] Con[employer] Operator: Jame eMna MD Eosinophils (Bld) [#/Vol] 0.168 10*3/uL Normal 15-500 [facility] Comment on above: Performed By: #### 3 6127, 92606, 6399, 48559, 65670 #### [facility] [place] [address] [employer]yl[employer] Converter Operator: Jame Mena MD Eosinophils/100 WBC (Bld) 2.5 % Normal [facility] Comment on above: Performed By: #### 3 6127, 33479, 6399, 46244, 85996 #### [facility] [place] [address] [employer] Converter Operator: Jame Mena MD Erythrocyte distribution width (RBC) [Ratio] 12.6 % Normal 11.0-15.0 [facility] Comment on above: Performed By: #### 3 6127, 07392, 6399, 82990, 73740 #### [facility] [place] [address] [employer] Converter Operator: Jame Mena MD Hematocrit (Bld) [Volume fraction] 43.6 % Normal 35.0-45.0 [facility] Comment on above: Performed By: #### 3 6127, 58230, 6399, 52273, 63764 #### [facility] [place] [address] Ethyl[employer] Converter Operator: Jame Mena MD Hemoglobin (Bld) [Mass/Vol] 14.6 g/dL Normal 11.7-15.5 [facility] Comment on above: Performed By: #### 3 6127, 10721, 6399, 75692, 82833 #### [facility] [place] [address] [employer]yl[employer] Converter Operator: Jame Mena MD Lymphocytes (Bld) [#/Vol] 1.206 10*3/uL Normal 850-3900 [facility] Comment on above: Performed By: #### 3 6127, 12768, 6399, 39180, 19526 #### [facility] [place] [address] Ethyl[employer] Converter Operator: Jame Mena MD Lymphocytes/100 WBC (Bld) 18.0 % Normal [facility] Comment on above: Performed By: #### 3 6127, 39316, 6399, 46829, 24218 #### [facility] [place] [address] [employer] Converter Operator: Jame Mena MD MCH (RBC) [Entitic mass] 31.6 pg Normal 27.0-33.0 [facility] Comment on above: Performed By: #### 3 6127, 30230, 6399, 01910, 45903 #### [facility] [place] [address] Ethyl[employer] Converter Operator: Jame Mena MD MCHC (RBC) [Mass/Vol] [...] patient's clinical condition. Performed By: #### 3 6127, 30074, 6399, 22537, 80006 #### [facility] [place] [address] [employer] Converter Operator: Jame Mena MD MCV (RBC) [Entitic vol] 94.4 fL Normal 80.0-100.0 [facility] Comment on above: Performed By: #### 3 6127, 92565, 6399, 05865, 78934 #### [facility] [place] [address] Ethyl[employer] Converter Operator: Jame Mena MD Monocytes (Bld) [#/Vol] 0.469 10*3/uL Normal 200-950 [facility] Comment on above: Performed By: #### 3 6127, 57067, 6399, 38234, 61297 #### [facility] [place] [address] Ethyl[employer] Converter Operator: Jame Mena MD Monocytes/100 WBC (Bld) 7.0 % Normal [facility] Comment on above: Performed By: #### 3 6127, 93240, 6399, 69682, 68374 #### [facility] [place] [address] [employer] Converter Operator: Jame Mena MD Neutrophils (Bld) [#/Vol] 4.831 10*3/uL Normal 3542-0758 [facility] Comment on above: Performed By: #### 3 6127, 99855, 6399, 10686, 69793 #### [facility] [place] [address] Ethyl[employer] Converter Operator: Jame Mena MD Neutrophils/100 WBC (Bld) 72.1 % Normal [facility] Comment on above: Performed By: #### 3 6127, 15928, 6399, 48528, 98697 #### [facility] [place] [address] Ethyl[employer] Converter Operator: Jame Mena MD Platelet mean volume (Bld) [Entitic vol] 11.2 fL Normal 7.5-12.5 [facility] Comment on above: Performed By: #### 3 6127, 14259, 6399, 53706, 15743 #### [facility] [place] [address] Ethyl[employer] Converter Operator: Jame Mena MD Platelets (Bld) [#/Vol] 206 10*3/uL Normal 140-400 [facility] Comment on above: Performed By: #### 3 6127, 13548, 6399, 98519, 18955 #### [facility] [place] [address] Ethyl[employer] Converter Operator: Jame Mena MD RBC (Bld) [#/Vol] 4.62 10*6/uL Normal 3.80-5.10 [facility] Comment on above: Performed By: #### 3 6127, 11004, 6399, 34655, 04740 #### [facility] [place] [address] Eth[employer] Converter Operator: Jame Mena MD WBC (Bld) [#/Vol] 6.7 10*3/uL Normal 3.8-10.8 [facility] Comment on above: Performed By: #### 3 6127, 78427, 6399, 23085, 36585 #### [facility] [place] [address] [employer]yl[employer] Con[employer] Operator: Jame Mena MD CBC W Auto Differential pane l (Bld)on 09-18-2024 Basophils (Bld) [#/Vol] 27 10*3/uL U [facility] Basophils/100 WBC (Bld) 0.4 % [facility] Eosinophils (Bld) [#/Vol] 168 10*3/uL [facility] Eosinophils/100 WBC (Bld) 2.5 % [facility] Erythrocyte distribution width (RBC) [Ratio] 12.6 % 11.0 - 15.0 % [facility] Hematocrit (Bld) [Volume fraction] 43.6 % 35.0 - 45.0 % [facility] Hemoglobin (Bld) [Mass/Vol] 14.6 g/dL 11.7 - 15.5 g/dL [facility] Lymphocytes (Bld) [#/Vol] 1206 10*3/uL [facility] Lymphocytes/100 WBC (Bld) 18 % [facility] MCH (RBC) [Entitic mass] 31.6 pg 27.0 - 33.0 pg [facility] MCHC (RBC) [Mass/Vol] 33.5 g/dL 32.0 - 36.0 g/dL [facility] Comment on above: For adults, a slight decrease in the calculated MCHC value (in the range of 30 to 32 g/dL) is most likely not clinically significant; however, it should be interpreted with caution in correlation with other red cell parameters and the patient's clinical condition. MCV (RBC) [Entitic vol] 94.4 fL 80.0 - 100.0 fL [facility] Monocytes (Bld) [#/Vol] 469 10*3/uL [facility] Monocytes/100 WBC (Bld) 7 % U [facility] Neutrophils (Bld) [#/Vol] 4831 10*3/uL [facility] Neutrophils/100 WBC (Bld) 72.1 % [facility] Platelet mean volume (Bld) [Entitic vol] 11.2 fL 7.5 - 12.5 fL [facility] Platelets (Bld) [#/Vol] 206 10*3/uL [facility] RBC (Bld) [#/Vol] 4.62 10*6/uL [facility] WBC (Bld) [#/Vol] 6.7 10*3/uL [facility] COMPREHENSIVE METABOLIC PANE L W/ANION GAPon 09-18-2024 Albumin [Mass/Vol] 4.4 g/dL Normal 3.6-5.1 [facility] Comment on above: Order Comment: FASTI NG:NO FASTING: NO Performed By: #### 3 1010, 57587, 1001, 45502, 57386 #### [facility] [address], [address] [place] [address] [employer]yl[employer] Converter Operator: Jame Mena MD ALP [Catalytic activity/Vol] 95 U/L Normal 37-153 [facility] Comment on above: Order Comment: FASTI NG:NO FASTING: NO Performed By: #### 3 6127, 58211, 6399, 78495, 28456 #### [facility] [place] [address] [employer]yl[employer] Converter Operator: Jame Mena MD ALT [Catalytic activity/Vol] 17 U/L Normal 6-29 [facility] Comment on above: Order Comment: FASTI NG:NO FASTING: NO Performed By: #### 3 6127, 15453, 6399, 69663, 79469 #### [facility] [place] [address] [employer] Converter Operator: Jame Mena MD AST [Catalytic activity/Vol] 15 U/L Normal 10-35 [facility] Comment on above: Order Comment: FASTI NG:NO FASTING: NO Performed By: #### 3 6127, 27561, 6399, 37829, 62078 #### [facility] [place] [address] Ethyl[employer] Converter Operator: Jame Mena MD Bilirubin [Mass/Vol] 0.6 mg/dL Normal 0.2-1.2 [facility] Comment on above: Order Comment: FASTI NG:NO FASTING: NO Performed By: #### 3 6127, 38342, 6399, 63790, 56660 #### [facility] [place] [address] [employer]yl[employer] Converter Operator: Jame Mena MD Calcium [Mass/Vol] 9.7 mg/dL Normal 8.6-10.4 [facility] Comment on above: Order Comment: FASTI NG:NO FASTING: NO Performed By: #### 3 6127, 55981, 6399, 01710, 30158 #### [facility] [place] [address] [employer] Converter Operator: Jame Mena MD Chloride [Moles/Vol] 102 mmol/L Normal 98-110 [facility] Comment on above: Order Comment: FASTI NG:NO FASTING: NO Performed By: #### 3 6127, 75502, 6399, 35579, 48199 #### [facility] [place] [address] [employer] Converter Operator: Jame Mena MD CO2 [Moles/Vol] 32 mmol/L Normal 20-32 [facility] Comment on above: Order Comment: FASTI NG:NO FASTING: NO Performed By: #### 3 6127, 10749, 6399, 33964, 90515 #### [facility] [place] [address] [employer] Converter Operator: Jame Mena MD Creatinine [Mass/Vol] 0.59 mg/dL Low 0.60-1.[address] [facility] Comment on above: Order Comment: FASTI NG:NO FASTING: NO Performed By: #### 3 6127, 45546, 6399, 12287, 80978 #### [facility] [place] [address] [employer]yl[employer] Converter Operator: Jame Mena MD ELECTROLYTE BALANCE 8 mmol/L (calc) Normal 7-17 [facility] Comment on above: Order Comment: FASTI NG:NO FASTING: NO Performed By: #### 3 6127, 13497, 6399, 87124, 13274 #### [facility] [place] [address] [employer] Con[employer] Operator: Jame Mena MD GFR/1.73 sq M.predicted among non-blacks MDRD (S/P/Bld) [Vol rate/Area] 92 mL/min/{1.73_m2} Normal > OR = 60 [facility] Comment on above: Order Comment: FASTI NG:NO FASTING: NO Performed By: #### 3 6127, 09480, 6399, 68751, 43964 #### [facility] [place] [address] [employer] Converter Operator: Jame Mena MD Glucose [Mass/Vol] 86 mg/dL Normal 65-139 [facility] Comment on above: Order Comment: FASTI NG:NO FASTING: NO Result Comment: Non-fasting reference interval Performed By: #### 3 6127, 27402, 6399, 46047, 58297 #### [facility] [place] [address] [employer] Converter Operator: Jame Mena MD Potassium [Moles/Vol] 4.7 mmol/L Normal 3.5-5.[address] [facility] [address] [facility] Comment on above: Order Comment: FASTI NG:NO FASTING: NO Performed By: #### 3 6127, 70433, 6399, 15604, 05256 #### [facility] [place] [address] [employer] Converter Operator: Jame Mena MD Protein [Mass/Vol] 6.9 g/dL Normal 6.1-8.1 [facility] Comment on above: Order Comment: FASTI NG:NO FASTING: NO Performed By: #### 3 6127, 80741, 6399, 71237, 32935 #### [facility] [place] [address] [employer] Converter Operator: Jame Mena MD Sodium [Moles/Vol] 142 mmol/L Normal 135-146 [facility] Comment on above: Order Comment: FASTI NG:NO FASTING: NO Performed By: #### 3 6127, 15576, 6399, 07457, 05765 #### [facility] [place] [address] [employer] Converter Operator: Jame Mena MD Urea nitrogen [Mass/Vol] 15 mg/dL Normal 7-25 [facility] Comment on above: Order Comment: FASTI NG:NO FASTING: NO Performed By: #### 3 6127, 98922, 6399, 68330, 53720 #### [facility] [place] [address] [employer] Converter Operator: Jame Mena MD Comprehensive metabolic 2000 panelon 09-18-2024 Albumin [Mass/Vol] 4.4 g/dL 3.6 - 5.1 g/dL [facility] ALP [Catalytic activity/Vol] 95 U/L 37 - 153 U/L [facility] ALT [Catalytic activity/Vol] 17 U/L 6 - 29 U/L [facility] Anion gap [Moles/Vol] 8 [facility] AST [Catalytic activity/Vol] 15 U/L 10 - 35 U/L [facility] Bilirubin [Mass/Vol] 0.6 mg/dL 0.2 - 1 .2 mg/dL [facility] Calcium [Mass/Vol] 9.7 mg/dL 8.6 - 10. 4 mg/dL [facility] Chloride [Moles/Vol] 102 mmol/L 98 - 11 0 mmol/L [facility] CO2 [Moles/Vol] 32 mmol/L 20 - 32 mmol/L [facility] Creatinine [Mass/Vol] 0.59 mg/dL Low 0.60 - 1.00 mg/dL [facility] GFR/1.73 sq M.predicted among non-blacks MDRD (S/P/Bld) [Vol rate/Area] 92 mL/min/{1.73_m2} > OR = 60 mL/min/1.73 m2 [facility] Glucose [Mass/Vol] 86 mg/dL 65 - 139 mg/dL [facility] Comment on above: Non-fasting reference interval Potassium [Moles/Vol] 4.7 mmol/L 3.5 - 5.3 mmol/L [facility] Protein [Mass/Vol] 6.9 g/dL 6.1 - 8.1 g/dL [facility] Sodium [Moles/Vol] 142 mmol/L 135 - 146 mmol/L [facility] Urea nitrogen [Mass/Vol] 15 mg/dL 7 - 25 mg/dL [facility] HEMOGLOBIN A1c WITH eAGon eAG (mmol/L) 6.5 mmol/L Normal [facility] Comment on above: Performed By: #### 3 3575, 50454, 0297, 48169, 96475 #### [facility] [place] [address] [facility], [address] [place] [address] [employer]yl[employer] Converter Operator: Jame Mena MD HEMOGLOBIN A1c 5.7 [...] diabetes for children. Performed By: #### 3 6127, 71893, 6399, 95129, 67782 #### [facility] [address], [address] [place] [address] [employer] Converter Operator: Jame Mena MD Magnesium [Mass/Vol] 117 mg/dL Normal [facility] Comment on above: Performed By: #### 3 6127, 95389, 6399, 02446, 42832 #### [facility] [address], [address] [place] [address] [employer] Converter Operator: Jame Mena MD HbA1c (Bld) [Mass fraction]o n 09-18-2024 Average glucose Estimated from glycated hemoglobin (Bld) [Mass/Vol] 117 mg/dL [facility] Average glucose Estimated from glycated hemoglobin (Bld) [Moles/Vol] 6.5 mmol/L [facility] Hemoglobin A1Con 09-18-2024 HbA1c (Bld) [Mass fraction] 5.7 % High [facility] Comment on above: For someone without known [...] Interpretation and review of laboratory results Abnormal [facility] FASTING:NO FASTING: NO [facility] TSH W/REFLEX TO FT4on 2024 TSH W/REFLEX TO FT4 2.56 mIU/L Normal 0.40-4.50 [facility] Comment on above: Performed By: #### 3 6127, 13934, 6399, 33986, 84771 #### [facility] [address], [address] [place], [place] [address] [employer]yl[employer] Converter Operator: Jame Mena MD Tsh With Reflex To Free T4 I f Abnormalon 09-18-2024 TSH Qn 2.56 m[IU]/L [facility] VITAMIN B12on 09-18-2024 Cobalamin (Vitamin B12) [Mass/Vol] 504 pg/mL Normal 200-1100 [facility] Comment on above: Performed By: #### 3 6127, 74090, 6399, 52698, 98344 #### [facility] [address], [address] [place], [place] [address] [employer]yl[employer] Converter Operator: Jame Mena MD VITAMIN D,25-OH,TOTAL,IAon 0 [...] D, (D2,D3), LC/MS/MS is recommended: order code 50743 (patients >2yrs). See Note 1 Note 1 For additional information, please refer to http://education.trueEX.PayPay/faq/ULU798 (This link is being provided for informational/ educational purposes only.) Performed By: #### 3 6127, 34541, 6399, 94321, 52113 #### [facility] [address], [address] [place], [place] [address] Ethylbenzene Converter Operator: Jame Mena MD Vitamin B12on 09-18-2024 Cobalamin (Vitamin B12) [Mass/Vol] 504 pg/mL 200 - 1100 pg/mL [facility] 36on 08-10-2024 36 LVM with pt that pharmacy is working on Arimidex refill. Encouraged to call with any further concerns. Normal [facility] Office Visiton 08-10-2024 Follow-up visit [id number] Madiha Perales 1945 F Date Provider Department Center 08/10/2024 [id number] ESCOBEDO [facility] ONC None Family History Problem Relation Age of Onset Breast cancer Mother Lung cancer Father Colon cancer Paternal Grandfather Family Status - Relation Status Age at Mother Father Paternal Grandfather Level of Service:[id number] MA OFFICE/OUTPATIENT ESTABLISHED LOW [facility] 20 MIN Reason for Visit and Comments: Breast Cancer [302] Normal [facility] Progress Noteon 08-10-2024 Progress Note Hematology/Oncology Office Visit Oncology History: 1) stage 1A left breast cancer, invasive ductal carcinoma grade 3. ER+ MA+ HER2+. cT1b N0 M0; pT1c N0 M0, diagnosed 01/28/23. - Patient is a 78 yo F who presented with an abnormal screening mammogram of the upper outer quadrant of the left breast on 11/27/22. Diagnostic imaging and ultrasound were performed on 01/21/2023: a 0.9 x 0.9 x 1 cm irregular mass in the left breast. Biopsy was performed at [facility] on 01/28/2023 confirming grade 3 invasive ductal carcinoma ER positive 100%, MA positive 70% and HER2 positive at 3+. The patient underwent lumpectomy and sentinel node removal on 02/18/[address] Choi at [facility]: pathology revealed grade 3 invasive ductal carcinoma measuring 1.9 cm. There was focal DCIS and extensive lymphovascular invasion. Margins were negative for invasive and in situ component at greater than 2 mm. 6 axillary nodes were removed: 5 sentinel and 1 nonsentinel. All were negative.Pathological ly staged T1CN0. - she was referred to [facility] for medical and radiation oncology. Her [...] She had a bilateral screening mammogram at [facility] on 03/25/24 which was negative [...] mouth 2 (more content not included)... Normal [facility] 36on 08-02-2024 36 Refill request received for anastrazole. Prescription pended. Normal [facility] DBT Breast - bilateral scree noahn 03-26-2024 IMPRESSION: There is no mammographic evidence of malignancy. Routine follow-up mammogram in 1 year is recommended. BI-RADS Category 2: Benign Interpreting Radiologist: Cm Rausch M.D. Electronically signed on: 03/26/2024 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: SURESH Transcriwellington Date/Time: Mar 25 2024 3:19P Dictated by : CM RAUSCH MD This examination was interpreted and the report reviewed and electronically signed by: CM RAUSCH MD on Mar 26 2024 10:24AM [facility] * * *Final Report* * * DATE OF EXAM: Mar 25 2024 3:42PM [address] SCREENING W SHIVA / PROCEDURE REASON: multiple diagnoses * * * * Physician Interpretation * * * * [address] [place] [address] HISTORY: Patient is 79 years old and [...] other abnormalities are seen in either breast. [facility] Provider, [facility] - 03/26/2024 * * *Final Report* * * DATE OF EXAM: Mar 25 2024 3:42PM [facility] SCREENING W SHIVA / PROCEDURE REASON: multiple diagnoses * * * * Physician Interpretation * * * * [address] [id number] HISTORY: Patient is 79 years old and [...] Cm Rausch M.D. Electronically signed on: 03/26/2024 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: SURESH Transcribe Date/Time: Mar 25 2024 3:19P Dictated by : CM RAUSCH MD This examination was interpreted and the report reviewed and electronically signed by: CM RAUSCH MD on Mar 26 2024 10:24AM EST [facility] DBT Breast - bilateral scree ningOrdered By: Ccf Provider on 03-26-2024 [facility] DBT Breast - bilateral scree ningon 03-25-2024 Radiology Study observation (narrative) [facility] LEE SCREENING W TOMOon 03-25 LEE SCREENING W SHIVA * * *Final Report* * * DATE OF EXAM: Mar 25 2024 3:42PM [facility] [id number] - LEE SCREENING W SHIVA / PROCEDURE REASON: multiple diagnoses * * * * Physician Interpretation * * * * [place] [address] HISTORY: Patient is 79 years old and [...] recommended. BI-RADS Category 2: Benign Interpreting Radiologist: mC Rausch M.D. Electronically signed on: 03/26/2024 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: SURESH Transcribe Date/Time: Mar 25 2024 3:19P Dictated by : CM RAUSCH MD This examination was interpreted and the report reviewed and electronically signed by: CM RAUSCH MD on Mar 26 2024 10:24AM EST [id number] Normal [facility] Encounteron 024 Hospital Encounter [id number] Madiha Perales 1945 F Date Provider Department Center 03/16/2024 VICKI CHAPIN [facility] RAD ON None Family History Problem Relation Age of Onset Breast cancer Mother Lung cancer Father Colon cancer Paternal Grandfather Family Status - Relation Status Age at Mother Father Paternal Grandfather Level of Service:[id number] MA OFFICE/OUTPATIENT ESTABLISHED LOW [facility] 20 MIN Reason for Visit and Comments: Follow-up [[id number]] [facility] Nursing Noteon 03-16-2024 Nursing Note The patient is here at [facility] with her for follow up with Dr. Diego. She arrived in a wheelchair. She uses a care or walker at times to ambulate around the house. She does physical therapy at [facility]. She denies pain at the current time. She denies skin issues at the previous site of radiation. Her appetite and sleeping are "good". Her energy level is fair. She is taking Arimidex as prescribed. She is scheduled for her next mammogram in March of 2024. She continues to follow up with Dr. Choi and Dr. Escobedo. [facility] Progress Noteon 03-16-2024 Progress Note RADIATION ONCOLOGY FOLLOW UP PATIENT: Madiha Perales DATE OF SERVICE: 03/16/2024 : 1945 AGE: 79 y.o. PRIMARY SITE AND HISTOPATHOLOGY: Left breast, grade 3 invasive ductal carcinoma, ER positive, MA positive, HER2 positive. STAGE: cT1b N0 M0, [...] the left breast. Biopsy was performed at [facility] on 01/28/2023. This revealed grade 3 invasive ductal carcinoma measuring at least 8 mm in dimension. ER positive at 100%, MA positive at 70% and HER2 positive at [...] distance. She is undergoing physical therapy at [facility] physical therapy. She denies any breast [...] apnea) The patient wears CPAP Parkinson disease ([facility]) Stroke ([facility]) 2009 Torn meniscus Uterine cancer (CMS/HCC) ([facility]) 2005 PAST SURGICAL HISTORY: Past Surgical History: [...] CARB-CHOLECALCIFEROL PO (more content not included)... Normal [facility] 02-19-2024 [facility] Office Visit (GENSME ) MADIHA PERALES ([id number]) 1945 F Date Time Provider Department 02/19/24 [...] breast in female, estrogen receptor positive (HCC) [facility] Oncology Notes under scanned Documents INTERVAL [...] EXAM: BP 124/84 Pulse 79 Ht 5' 5" (1.65m) Wt 207 lb (93.9kg) SpO2 97% [...] wheezes Extremiti (more content not included)... Normal [facility] 36on 02-03-2024 36 Refill for Arimidex pended to be signed if agreeable. Normal [facility] 02-03-2024 CNPN Telephone (Protenus) MADIHA [id number]) 1945 F Date Time Provider Department 02/03/24 TORRIE CHOI During your visit today, we recorded the following information about you: Jefferson Chanelle 02/03/2024 10:[address] Grubbs's office called to ask when patient needed scheduled for her next mamogram Yue Spear, HANNAH 02/03/2024 10:48 AM Signed Order placed per patient's request for mammogram and/or breast ultrasound. Routed to provider/MD to approve. Lucius Dubose PA-C 02/04/2024 8:01 AM Signed Orders signed. Yue Spear, HANNAH 02/04/2024 9:24 AM Signed Voice message left [...] (HCC) [C50.412, Z17.0] Order(s):LEE SCREENING W SHIVA [[id number]] Order #: [id number] FUTURE Prescriptions as of 02/05/2024 - anastrozole [...] 06/12/2023: 06/12/23, patient is now finished with levofloxacinVee RN Problem List As Of Date 02/03/2024 [...] (HCC) (HCC) [D70.9, R50.81] 06/05/2023 06/08/2023 HCAP (healthcare-associate d pneumonia) [J18.9] 06/08/2023 Obesity, Class I, BMI 30-34.9 [E66.9] 10/08/2023 Pneumonia due to COVID-19 virus [U07.1, J12.82] 10/08/2023 Acute hypoxic respiratory failure (HCC) [J96.01]10/09/2023 Toxic encephalopathy [G92.9] 10/09/2023 Encounter Status:Closed by CHANELLE ROSENBERG on 02/05/24 Normal [facility] Office Visiton 02-03-2024 Follow-up visit [id number] Madiha Perales 1945 F Date Provider Department Center 02/03/2024 [id number] ESCOBEDO [facility] ONC None Family History Problem Relation Age of Onset Breast cancer Mother Lung cancer Father Colon cancer Paternal Grandfather Family Status - Relation Status Age at Mother Father Paternal Grandfather Level of Service:20811 MA OFFICE/OUTPATIENT ESTABLISHED MOD [facility] 30 MIN Reason for Visit and Comments: Breast Mass [[id number]] Normal [facility] Progress Noteon 02-03-2024 Progress Note Hematology/Oncology Office Visit Oncology History: 1) stage 1A left breast cancer, invasive ductal carcinoma grade 3. ER+ MA+ HER2+. cT1b N0 M0; pT1c N0 M0, diagnosed 01/28/23. - Patient is a 78 yo F who presented with an abnormal screening mammogram of the upper outer quadrant of the left breast on 11/27/22. Diagnostic imaging and ultrasound were performed on 01/21/2023: a 0.9 x 0.9 x 1 cm irregular mass in the left breast. Biopsy was performed at [facility] on 01/28/2023 confirming grade 3 invasive ductal carcinoma ER positive 100%, MA positive 70% and HER2 positive at 3+. The patient underwent lumpectomy and sentinel node removal on 02/18/[address] Choi at [facility]: pathology revealed grade 3 invasive ductal carcinoma measuring 1.9 cm. There was focal DCIS and extensive lymphovascular invasion. Margins were negative for invasive and in situ component at greater than 2 mm. 6 axillary nodes were removed: 5 sentinel and 1 nonsentinel. All were negative.Pathological ly staged T1CN0. - she was referred to [facility] for medical and radiation oncology. Her [...] apnea) The patient wears CPAP Parkinson disease ([facility]) Stroke ([facility]) 2009 Torn meniscus Uterine cancer ([facility]/HCC) (HCC) 2005 Past Surgical History: Procedure Laterality [...] Refill amoxicillin (more content not included)... Normal [facility] Office Visiton 11-04-2023 Follow-up visit [id number] [place],Madiha Latha 1945 F Date Provider Department Center 11/04/2023 [id number] ESCOBEDO [facility] ONC None Family History Problem Relation Age of Onset Breast cancer Mother Lung cancer Father Colon cancer Paternal Grandfather Family Status - Relation Status Age at Mother Father Paternal Grandfather Level of Service:94462 MA OFFICE/OUTPATIENT ESTABLISHED MOD [facility] 30 MIN Reason for Visit and Comments: Breast Cancer [302] Normal [facility] Progress Noteon 11-04-2023 Progress Note Hematology/Oncology Office Visit Oncology History: 1) stage 1A left breast cancer, invasive ductal carcinoma grade 3. ER+ MA+ HER2+. cT1b N0 M0; pT1c N0 M0, diagnosed 01/28/23. - Patient is a 78 yo F who presented with an abnormal screening mammogram of the upper outer quadrant of the left breast on 11/27/22. Diagnostic imaging and ultrasound were performed on 01/21/2023: a 0.9 x 0.9 x 1 cm irregular mass in the left breast. Biopsy was performed at [facility] on 01/28/2023 confirming grade 3 invasive ductal carcinoma ER positive 100%, MA positive 70% and HER2 positive at 3+. The patient underwent lumpectomy and sentinel node removal on 02/18/[address] Choi at [facility]: pathology revealed grade 3 invasive ductal carcinoma measuring 1.9 cm. There was focal DCIS and extensive lymphovascular invasion. Margins were negative for invasive and in situ component at greater than 2 mm. 6 axillary nodes were removed: 5 sentinel and 1 nonsentinel. All were negative.Pathological ly staged T1CN0. - she was referred to [...] calcifications on mammogram 07/24/2013 Cerebrovascular accident (CVA) ([facility]) 06/23/2009 Social History Tobacco Use Smoking status: [...] Medications Medicat (more content not included)... Normal [facility] Basic metabolic 2000 panelon 10-27-2023 Anion gap [Moles/Vol] 12 mmol/L 9 - 18 mmol/L [facility] Calcium [Mass/Vol] 8.5 mg/dL 8.5 - 10. 2 mg/dL [facility] Chloride [Moles/Vol] 107 mmol/L High 97 - 10 5 mmol/L [facility] CO2 [Moles/Vol] 24 mmol/L 22 - 30 mmol/L [facility] Creatinine [Mass/Vol] 0.71 mg/dL 0.58 - 0.96 mg/dL [facility] GFR/1.73 sq M.predicted among non-blacks MDRD (S/P/Bld) [Vol rate/Area] 88 mL/min/{1.73_m2} - PINF [facility] Comment on above: Estimated Glomerular [...] [Mass/Vol] 77 mg/dL 74 - 99 mg/dL [facility] Comment on above: The [place] [employer] Association (ADA) provides guidance for [...] Standards of Medical Care in Diabetes 2016, [place] [employer]. Diabetes Care. 2016.39(Suppl 1). Interpretation and review of laboratory results Abnormal [facility] Potassium [Moles/Vol] 4.2 mmol/L 3.7 - 5.1 mmol/L [facility] Sodium [Moles/Vol] 143 mmol/L 136 - 144 mmol/L [facility] Urea nitrogen [Mass/Vol] 17 mg/dL 7 - 21 mg/dL [facility] CBC panel Auto (Bld)on 10-26 Erythrocyte distribution width (RBC) [Ratio] 14.8 % 11.5 - 15.0 % [facility] Hematocrit (Bld) [Volume fraction] 39.8 % 36.0 - 46.0 % [facility] Hemoglobin (Bld) [Mass/Vol] 12.9 g/dL 11.5 - 15.5 g/dL [facility] Interpretation and review of laboratory results Normal [facility] MCH (RBC) [Entitic mass] 29.9 pg 26.0 - 34.0 pg [facility] MCHC (RBC) [Mass/Vol] 32.4 g/dL 30.5 - 36.0 g/dL [facility] MCV (RBC) [Entitic vol] 92.1 fL 80.0 - 100.0 fL [facility] Nucleated RBC (Bld) [#/Vol] NINF [facility] Platelet mean volume (Bld) [Entitic vol] 10.6 fL 9.0 - 12.7 fL [facility] Platelets (Bld) [#/Vol] 168 10*3/uL [facility] RBC (Bld) [#/Vol] 4.32 10*6/uL 3.90 - 5.2 0 m/uL [facility] WBC (Bld) [#/Vol] 5.72 10*3/uL [facility] Basic metabolic 2000 panelon 10-23-2023 Anion gap [Moles/Vol] 9 mmol/L 9 - 18 mmol/L [facility] Calcium [Mass/Vol] 8.5 mg/dL 8.5 - 10. 2 mg/dL [facility] Chloride [Moles/Vol] 104 mmol/L 97 - 10 5 mmol/L [facility] CO2 [Moles/Vol] 27 mmol/L 22 - 30 mmol/L [facility] Creatinine [Mass/Vol] 0.73 mg/dL 0.58 - 0.96 mg/dL [facility] GFR/1.73 sq M.predicted among non-blacks MDRD (S/P/Bld) [Vol rate/Area] 85 mL/min/{1.73_m2} - PINF [facility] Comment on above: Estimated Glomerular [...] [Mass/Vol] 76 mg/dL 74 - 99 mg/dL [facility] Comment on above: The [place] [employer] Association (ADA) provides guidance for [...] Standards of Medical Care in Diabetes 2016, [place] [employer]. Diabetes Care. 2016.39(Suppl 1). Interpretation and review of laboratory results Normal [facility] Potassium [Moles/Vol] 4.2 mmol/L 3.7 - 5.1 mmol/L [facility] Sodium [Moles/Vol] 140 mmol/L 136 - 144 mmol/L [facility] Urea nitrogen [Mass/Vol] 15 mg/dL 7 - 21 mg/dL [facility] CBC panel Auto (Bld)on 10-22 Erythrocyte distribution width (RBC) [Ratio] 15.0 % 11.5 - 15.0 % [facility] Hematocrit (Bld) [Volume fraction] 42.1 % 36.0 - 46.0 % [facility] Hemoglobin (Bld) [Mass/Vol] 13.7 g/dL 11.5 - 15.5 g/dL [facility] Interpretation and review of laboratory results Normal [facility] MCH (RBC) [Entitic mass] 29.9 pg 26.0 - 34.0 pg [facility] MCHC (RBC) [Mass/Vol] 32.5 g/dL 30.5 - 36.0 g/dL [facility] MCV (RBC) [Entitic vol] 91.9 fL 80.0 - 100.0 fL [facility] Nucleated RBC (Bld) [#/Vol] NINF [facility] Platelet mean volume (Bld) [Entitic vol] 10.5 fL 9.0 - 12.7 fL [facility] Platelets (Bld) [#/Vol] 164 10*3/uL [facility] RBC (Bld) [#/Vol] 4.58 10*6/uL 3.90 - 5.2 0 m/uL [facility] WBC (Bld) [#/Vol] 7.20 10*3/uL [facility] Basic metabolic 2000 panelon 10-20-2023 Anion gap [Moles/Vol] 7 mmol/L Low 9 - 18 mmol/L [facility] Calcium [Mass/Vol] 8.4 mg/dL Low 8.5 - 10. 2 mg/dL [facility] Chloride [Moles/Vol] 101 mmol/L 97 - 10 5 mmol/L [facility] CO2 [Moles/Vol] 31 mmol/L High 22 - 30 mmol/L [facility] Creatinine [Mass/Vol] 0.91 mg/dL 0.58 - 0.96 mg/dL [facility] GFR/1.73 sq M.predicted among non-blacks MDRD (S/P/Bld) [Vol rate/Area] 65 mL/min/{1.73_m2} - PINF [facility] Comment on above: Estimated Glomerular [...] [Mass/Vol] 83 mg/dL 74 - 99 mg/dL [facility] Comment on above: The [place] [employer] Association (ADA) provides guidance for [...] Standards of Medical Care in Diabetes 2016, [place] [employer]. Diabetes Care. 2016.39(Suppl 1). Interpretation and review of laboratory results Abnormal [facility] Potassium [Moles/Vol] 4.4 mmol/L 3.7 - 5.1 mmol/L [facility] Sodium [Moles/Vol] 139 mmol/L 136 - 144 mmol/L [facility] Urea nitrogen [Mass/Vol] 30 mg/dL High 7 - 21 mg/dL [facility] CBC panel Auto (Bld)on 10-19 Erythrocyte distribution width (RBC) [Ratio] 15.0 % 11.5 - 15.0 % [facility] Hematocrit (Bld) [Volume fraction] 42.7 % 36.0 - 46.0 % [facility] Hemoglobin (Bld) [Mass/Vol] 13.7 g/dL 11.5 - 15.5 g/dL [facility] Interpretation and review of laboratory results Abnormal [facility] MCH (RBC) [Entitic mass] 29.9 pg 26.0 - 34.0 pg [facility] MCHC (RBC) [Mass/Vol] 32.1 g/dL 30.5 - 36.0 g/dL [facility] MCV (RBC) [Entitic vol] 93.2 fL 80.0 - 100.0 fL [facility] Nucleated RBC (Bld) [#/Vol] NINF [facility] Platelet mean volume (Bld) [Entitic vol] 10.6 fL 9.0 - 12.7 fL [facility] Platelets (Bld) [#/Vol] 184 10*3/uL [facility] RBC (Bld) [#/Vol] 4.58 10*6/uL 3.90 - 5.2 0 m/uL [facility] WBC (Bld) [#/Vol] 11.11 10*3/uL [facility] Basic metabolic 2000 panelon 10-16-2023 Anion gap [Moles/Vol] 9 mmol/L 9 - 18 mmol/L [facility] Calcium [Mass/Vol] 9.1 mg/dL 8.5 - 10. 2 mg/dL [facility] Chloride [Moles/Vol] 101 mmol/L 97 - 10 5 mmol/L [facility] CO2 [Moles/Vol] 29 mmol/L 22 - 30 mmol/L [facility] Creatinine [Mass/Vol] 0.66 mg/dL 0.58 - 0.96 mg/dL [facility] GFR/1.73 sq M.predicted among non-blacks MDRD (S/P/Bld) [Vol rate/Area] 90 mL/min/{1.73_m2} - PINF [facility] Comment on above: Estimated Glomerular [...] [Mass/Vol] 91 mg/dL 74 - 99 mg/dL [facility] Comment on above: The [place] Di[employer] Association (ADA) provides guidance for [...] Standards of Medical Care in Diabetes 2016, [place] [employer]. Diabetes Care. 2016.39(Suppl 1). Interpretation and review of laboratory results Abnormal [facility] Potassium [Moles/Vol] 4.7 mmol/L 3.7 - 5.1 mmol/L [facility] Sodium [Moles/Vol] 139 mmol/L 136 - 144 mmol/L [facility] Urea nitrogen [Mass/Vol] 29 mg/dL High 7 - 21 mg/dL [facility] CBC panel Auto (Bld)on 10-15 Erythrocyte distribution width (RBC) [Ratio] 14.4 % 11.5 - 15.0 % [facility] Hematocrit (Bld) [Volume fraction] 46.6 % High 36.0 - 46.0 % [facility] Hemoglobin (Bld) [Mass/Vol] 15.3 g/dL 11.5 - 15.5 g/dL [facility] Interpretation and review of laboratory results Abnormal [facility] MCH (RBC) [Entitic mass] 30.1 pg 26.0 - 34.0 pg [facility] MCHC (RBC) [Mass/Vol] 32.8 g/dL 30.5 - 36.0 g/dL [facility] MCV (RBC) [Entitic vol] 91.6 fL 80.0 - 100.0 fL [facility] Nucleated RBC (Bld) [#/Vol] NINF [facility] Platelet mean volume (Bld) [Entitic vol] 10.8 fL 9.0 - 12.7 fL [facility] Platelets (Bld) [#/Vol] 219 10*3/uL [facility] RBC (Bld) [#/Vol] 5.09 10*6/uL 3.90 - 5.2 0 m/uL [facility] WBC (Bld) [#/Vol] 12.59 10*3/uL High [facility] 36on 10-13-2023 36 Spoke with Wesley about Citlaly. Citlaly was admitted to [facility] last Friday10/07/23. She says that she presented to the ED with weakness and increased confusion. After evaluation, she was positive for COVID and she says that she has since been weaned off oxygen and had received Remdesevir and steroids. She does note that since mid August, she has noticed her mom having more weakness, falls, and episodes of confusions. At times, she will stare blankly and not answer questions. She has done things like drinking salad dressing from the refrigerator and eating food with her hands at a restaurant. She fell outside her home on Good Friday and a good jain found her and assisted her. She is [...] steroids. Recommended that she reach out to [facility]'s neurologist with an update. She is unsure [...] out to our office on discharge from [facility]. Will plan for Dr. Escobedo to reassess patient's functional and cognitive status prior to further infusion treatments. Normal [facility] 36on 10-06-2023 36 Follow up call made to pt., nano barrett - LMOM. Will continue to monitor and follow. Lisa Watters, MPA, RDN LD CDCES Normal [facility] CBC W Auto Differential pane l (Bld)Ordered By: Annie Montalvo on 09-23-2023 Basophils (Bld) [#/Vol] 0.0 10*3/uL 0.0 - 0.2 10*3/uL [employer] Basophils/100 WBC (Bld) 0.5 % 0.0 - 2.0 % [facility] [employer] Eosinophils (Bld) [#/Vol] 0.1 10*3/uL 0.0 - 0.5 10*3/uL [employer] Eosinophils/100 WBC (Bld) 2.2 % 0.0 - 6.0 % [facility] [employer] Erythrocyte distribution width (RBC) [Ratio] 13.9 % 11.5 - 15.0 % [employer] Hematocrit (Bld) [Volume fraction] 43.9 % 35.0 - 47.0 % [facility] Hemoglobin (Bld) [Mass/Vol] 14.2 g/dL 11.7 - 16.0 g/dL [facility] Immature granulocytes (Bld) [#/Vol] 0.0 10*3/uL NINF - 0.1 10*3/uL [facility] Immature granulocytes/100 WBC (Bld) 0.4 % 0.0 - 2.0 % [facility] Interpretation and review of laboratory results Abnormal [facility] Lymphocytes (Bld) [#/Vol] 0.9 10*3/uL Low 1.0 - 4.3 10*3/uL [facility] Lymphocytes/100 WBC (Bld) 16.8 % 15.0 - 45.0 % [facility] MCH (RBC) [Entitic mass] 29.8 pg 26.0 - 34.0 pg [facility] MCHC (RBC) [Mass/Vol] 32.3 % 30.5 - 36.0 % [facility] MCV (RBC) [Entitic vol] 92.2 fL 77.0 - 99.0 fL [facility] Monocytes (Bld) [#/Vol] 0.4 10*3/uL 0.0 - 0.9 10*3/uL [facility] Monocytes/100 WBC (Bld) 6.8 % 5.0 - 13.0 % [facility] Neutrophils (Bld) [#/Vol] 4.0 10*3/uL 1.8 - 7.5 10*3/uL [facility] Neutrophils/100 WBC (Bld) 73.3 % 38.0 - 82.0 % [facility] Nucleated RBC/100 WBC (Bld) [Ratio] 0.0 % [facility] Platelet mean volume (Bld) [Entitic vol] 9.8 fL 9.0 - 12.7 fL [facility] Comment on above: MPV is a calculated measurement using platelet volume ratio Platelets (Bld) [#/Vol] 205 10*3/uL 140 - 440 10*3/uL [facility] RBC (Bld) [#/Vol] 4.76 10*6/uL 3.80 - 5.2 0 10*6/uL [facility] WBC (Bld) [#/Vol] 5.5 10*3/uL 3.6 - 10.7 10*3/uL [facility] CBC WITH AUTO DIFFERENTIALon 09-23-2023 Basophils (Bld) [#/Vol] 0.0 10*3/uL Normal 0.0-0.2 [facility] Comment on above: Performed By: #### L [id number] ####Ethylbenzene Converter Operator: GRISELDA ROSALES ([phone])[facility] ([facility])[address] [place] [address] Basophils/100 WBC (Bld) 0.5 % Normal 0.0-2.0 [facility] Comment on above: Performed By: #### L [id number] ####Ethylbenzene Converter Operator: GRISELDA ROSALES ([phone])[facility] [place] [address] Eosinophils (Bld) [#/Vol] 0.1 10*3/uL Normal 0.0-0.5 [facility] Comment on above: Performed By: #### L [id number] ####Ethylbenzene Converter Operator: GRISELDA ROSALES ([id number])[facility] [place] [address] Eosinophils/100 WBC (Bld) 2.2 % Normal 0.0-6.0 [facility] Comment on above: Performed By: #### L [id number] ####Ethylbenzene Converter Operator: GRISELDA HAYSADALGISA ([phone])[facility] ([facility])[address] [place] [address] Erythrocyte distribution width (RBC) [Ratio] 13.9 % Normal 11.5-15.0 [facility] Comment on above: Performed By: #### L [id number] ####Ethylbenzene Converter Operator: GRISELDA ROSALES ([phone])[facility] [place] [address] Hematocrit (Bld) [Volume fraction] 43.9 % Normal 35.0-47.[address] [facility] Comment on above: Performed By: #### L [id number] ####Ethylbenzene Converter Operator: GRISELDA ROSALES ([id number])[facility] ([facility])[address] [place] [address] Hemoglobin (Bld) [Mass/Vol] 14.2 g/dL Normal 11.7-16.[address] [facility] Comment on above: Performed By: #### L [id number] ####Ethylbenzene Converter Operator: GRISELDA ROSALES ([phone])[facility] ([facility])[address] [place] [address] IMMATURE GRANS % 0.4 % Normal 0.0-2.0 [facility] Comment on above: Performed By: #### L [id number] ####Ethylbenzene Converter Operator: GRISELDA ROSALES ([id number])[facility] ([facility])[address] [place] [address] IMMATURE GRANS ABSOLUTE 0.0 10*3/uL Normal <0.[address] [facility] Comment on above: Performed By: #### L [id number] ####Ethylbenzene Converter Operator: GRISELDA ROSALES ([phone])[facility] ([facility])[address] [place] [address] Lymphocytes (Bld) [#/Vol] 0.9 10*3/uL Low 1.0-4.[address] [facility] Comment on above: Performed By: #### L [id number] ####Ethylbenzene Converter Operator: GRISELDA ROSALES ([id number])[facility] ([facility])[address] [place] [address] Lymphocytes/100 WBC (Bld) 16.8 % Normal 15.0-45.[address] [facility] Comment on above: Performed By: #### L [id number] ####Ethylbenzene Converter Operator: GRISELDA ROSALES ([id number])[facility] ([facility])[address] [place] [address] MCH (RBC) [Entitic mass] 29.8 pg Normal 26.0-34.[address] [facility] Comment on above: Performed By: #### L [id number] ####Ethylbenzene Converter Operator: GRISELDA ROSALES ([id number])[facility] ([facility])[address] [place] [address] MCHC 32.3 % Normal 30.5-36.0 [facility] Comment on above: Performed By: #### L [id number] ####Ethylbenzene Converter Operator: GRISELDA SIMMONSTigistADALGISA ([id number])[facility] ([facility])[address] [place] [address] MCV (RBC) [Entitic vol] 92.2 fL Normal 77.0-99.0 [facility] Comment on above: Performed By: #### L [id number] ####Ethylbenzene Converter Operator: GRISELDA SIMMONSJAKE ([id number])[facility] ([facility])[address] [place] [address] Monocytes (Bld) [#/Vol] 0.4 10*3/uL Normal 0.0-0.9 [facility] Comment on above: Performed By: #### L [id number] ####Ethylbenzene Converter Operator: GRISELDA CONNIE ([phone])[facility] ([facility])[address] [place] [address] Monocytes/100 WBC (Bld) 6.8 % Normal 5.0-13.0 [facility] Comment on above: Performed By: #### L [id number] ####Ethylbenzene Converter Operator: GRISELDA CONNIE ([id number])[facility] ([facility])[address] [place] [address] NEUTROPHILS ABSOLUTE 4.0 10*3/uL Normal 1.8-7.5 [facility] Comment on above: Performed By: #### L [id number] ####Ethylbenzene Converter Operator: GRISELDA SIMMONSJAKE ([id number])[facility])[address] [place] [address] Neutrophils/100 WBC (Bld) 73.3 % Normal 38.0-82.0 [facility] Comment on above: Performed By: #### L [id number] ####Ethylbenzene Converter Operator: GRISELDA HAYSADALGISA ([phone])[facility] ([facility])[address] [place] [address] NRBC 0.0 /100 WBCs Normal 0.0-2.0 [facility] Comment on above: Performed By: #### L [id number] ####Ethylbenzene Converter Operator: GRISELDA ROSALES ([id number])[facility] ([facility])[address] [place] [address] Platelet mean volume (Bld) [Entitic vol] 9.8 fL Normal 9.0-12.7 [facility] Comment on above: Result Comment: MPV is a calculated measurement using platelet volume ratio Performed By: #### L [id number] ####Ethylbenzene Converter Operator: GRISELDA ROSALES ([id number])[facility] ([facility])[address] [place] [address] Platelets (Bld) [#/Vol] 205 10*3/uL Normal 140-440 [facility] Comment on above: Performed By: #### L [id number] ####Ethylbenzene Converter Operator: GRISELDA ROSALES ([id number])[facility] ([facility])[address] [place] [address] RBC (Bld) [#/Vol] 4.76 10*6/uL Normal 3.80-5.20 [facility] Comment on above: Performed By: #### L [id number] ####Ethylbenzene Converter Operator: GRISELDA ROSALES ([phone])[facility] ([facility])[address] [place] [address] WBC (Bld) [#/Vol] 5.5 10*3/uL Normal 3.6-10.7 [facility] Comment on above: Performed By: #### L [id number] ####Ethylbenzene Converter Operator: GRISELDA ROSALES ([id number])[facility] ([facility])[address] [place] [address] Comprehensive metabolic 2000 panelon 09-23-2023 Albumin [Mass/Vol] 3.4 g/dL 3.3 - 5.5 g/dL [facility] ALP [Catalytic activity/Vol] 83 U/L 42 - 141 U/L [facility] ALT [Catalytic activity/Vol] 20 U/L 10 - 47 U/L [facility] Anion gap [Moles/Vol] 9.00 mmol/L -4.00 - 12.00 mmol/L [facility] AST [Catalytic activity/Vol] 29 U/L 11 - 38 U/L [facility] Bilirubin [Mass/Vol] 0.7 mg/dL 0.2 - 1 .6 mg/dL [facility] Calcium [Mass/Vol] 9.3 mg/dL 8.0 - 10. 3 mg/dL [facility] Chloride [Moles/Vol] 104 mmol/L [facility] CO2 [Moles/Vol] 27 mmol/L [facility] GFR/1.73 sq M.predicted MDRD (S/P/Bld) [Vol rate/Area] 76.0 mL/min/{1.73_m2} - PINF [facility] Glucose [Mass/Vol] 133 mg/dL High 73 - 118 mg/dL [facility] Interpretation and review of laboratory results Abnormal [facility] Potassium [Moles/Vol] 3.8 mmol/L [facility] Protein [Mass/Vol] 6.5 g/dL 6.4 - 8.1 g/dL [facility] Sodium [Moles/Vol] 140 mmol/L [facility] Urea nitrogen [Mass/Vol] 19 mg/dL 7 - 22 mg/dL [facility] Urea nitrogen/Creatinine [Mass ratio] 0.8 mg/dL 0.6 - 1.2 mg/dL [facility] Progress Noteon 09-23-2023 Progress Note Patient arrived for Q 3 week Trazimera infusion. Per patient family patient had unwitnessed fall this week. Patient did not have walker with her and fell,[facility]. Encouraged patient family [...] ambulatory with family prior to discharge. Normal [facility] US Heart TransthoracicOrdere d By: Sachin Watkins on 09-18-2023 Aortic Sinus Valsalva 3.3 cm [facility] Work Phone: Aortic Sinus Valsalva Index 1.66 cm/m2 [facility] Work Phone: AR Max Velocity PISA 3.5 m/s [facility] Work Phone: AR PHT 456.7 ms [facility] Work Phone: Ascending Aorta 3.5 cm [facility] Work Phone: Ascending Aorta Index 1.76 cm/m2 [facility] Work Phone: AV Area by Peak Velocity 2.4 cm2 [facility] Work Phone: AV Area by VTI 2.7 cm2 [facility] Work Phone: AV Mean Gradient 4 mmHg [facility] Work Phone: AV Mean Velocity 0.9 m/s [...] [facility] Work Phone: E/E' Lateral 7.43 [facility] Work Phone: E/E' Ratio (Averaged) 8.05 [facility] Work Phone: E/E' Septal 8.67 [facility] Work Phone: EF BP 60 % 55 - 100 % [facility] Work Phone: Fractional Shortening 2D 24 % 28 - 44 % [facility] Work Phone: Global Longitudinal Strain -17.3 % [facility] Work Phone: Interpretation and review of laboratory results Abnormal [facility] Work Phone: IVC Diameter 2.1 cm [facility] Work Phone: IVSd 1.1 cm Abnormal 0.6 - 0.9 cm [facility] Work Phone: LA Volume 2C 79 mL Abnormal 22 - 52 mL [facility] Work Phone: LA Volume 4C 65 mL Abnormal 22 - 52 mL [facility] Work Phone: LA Volume A/L 78 mL [facility] Work Phone: LA Volume Index 2C 40 mL/m2 Abnormal 16 - 34 mL/m2 [facility] Work Phone: LA Volume Index 4C 33 mL/m2 16 - 34 mL/m2 [facility] Work Phone: LA Volume Index A/L 39 mL/m2 16 - 34 mL/m2 [facility] Work Phone: LV E' Lateral Velocity 7 cm/s [facility] Work Phone: LV E' Septal Velocity 6 cm/s [facility] Work Phone: LV EDV A2C 87 mL [facility] Work Phone: LV EDV A4C 66 mL [facility] Work Phone: LV EDV BP 77 mL 56 - 104 mL [facility] Work Phone: LV EDV Index A2C 44 mL/m2 [facility] Work Phone: LV EDV Index A4C 33 mL/m2 [facility] Work Phone: LV EDV Index BP 39 mL/m2 [facility] Work Phone: LV Ejection Fraction A2C 58 % [facility] Work Phone: LV Ejection Fraction A4C 60 % [facility] Work Phone: LV ESV A2C 37 mL [facility] Work Phone: LV ESV A4C 26 mL [facility] Work Phone: LV ESV BP 31 mL 19 - 49 mL [facility] Work Phone: LV ESV Index A2C 19 mL/m2 [facility] Work Phone: LV ESV Index A4C 13 mL/m2 [facility] Work Phone: LV ESV Index BP 16 mL/m2 [facility] Work Phone: LV Mass 2D 96.9 g 67 - 162 g [facility] Work Phone: LV Mass 2D Index 48.7 g/m2 43 - 95 g/m2 [facility] Work Phone: LV RWT Ratio 0.38 [facility] Work Phone: LVIDd 3.7 cm Abnormal 3.9 - 5.3 cm [facility] Work Phone: LVIDd Index 1.86 cm/m2 [facility] Work Phone: LVIDs 2.8 cm [facility] Work Phone: LVIDs Index 1.41 cm/m2 [facility] Work Phone: LVOT Area 3.1 cm2 [facility] Work Phone: LVOT Cardiac Output 5.4 liter/mi nut e [facility] Work Phone: LVOT Diameter 2.0 cm [facility] Work Phone: LVOT Mean Gradient 2 mmHg [facility] Work Phone: LVOT Peak Gradient 4 mmHg [facility] Work Phone: LVOT Peak Velocity 1.0 m/s [facility] Work Phone: LVOT Stroke Volume Index 30.1 mL/m2 [facility] Work Phone: LVOT SV 60.0 ml [facility] Work Phone: LVOT VTI 19.1 cm [facility] Work Phone: LVOT:AV VTI Index 0.84 [facility] [employer] Work Phone: LVPWd 0.7 cm 0.6 - 0.9 cm [facility] Work Phone: MV A Velocity 0.78 m/s [facility] Work Phone: MV E Velocity 0.52 m/s [facility] Work Phone: MV E Wave Deceleration Time 275.7 ms [facility] [employer] Work Phone: MV E/A 0.67 [facility] [employer] Work Phone: RV Free Wall Peak S' 15 cm/s [facility] [employer] Work Phone: Sinotubular Junction 2.8 cm [facility] [employer] Work Phone: TAPSE 2.0 cm 1.7 cm [facility] [employer] Work Phone: [facility] [employer] Work Phone: Heart Transthoracicon Left Ventricle: Left ventricle [...] Additional Conclusions No significant valvular abnormalities. CV [facility] Hospital Encounteron 024 Hospital Encounter [id number] Madiha Perales 1945 F Date Provider Department Center 09/12/2023 [id number] [facility] RAD ON None Family History Problem Relation Age of Onset Breast cancer Mother Lung cancer Father Colon cancer Paternal Grandfather Family Status - Relation Status Age at Mother Father Paternal Grandfather Level of Service:42846 MA OFFICE/OUTPT VISIT,PROCEDURE ONLY Reason for Visit and Comments: Follow-up [477761] Normal [facility] Nursing Noteon 09-12-2023 Nursing Note Here with using walker for follow up.Appetite good states she just doesn't drink enough water. Energy normal for her rests frequently. States skin is doing well and continues to moisturize with aloe and coconut oil. Recent bone density test done. Has echo coming up and continues on Trazimera every 3 weeks. Normal [facility] Progress Noteon 09-12-2023 Progress Note RADIATION ONCOLOGY FOLLOW UP PATIENT: Madiha Perales DATE OF SERVICE: 09/12/2023 : 1945 AGE: 78 y.o. PRIMARY SITE AND HISTOPATHOLOGY: Left breast, grade 3 invasive ductal carcinoma, ER positive, MA positive, HER2 positive. STAGE: cT1b N0 M0, [...] the left breast. Biopsy was performed at [facility] on 01/28/2023. This revealed grade 3 invasive ductal carcinoma measuring at least 8 mm in dimension. ER positive at 100%, MA positive at 70% and HER2 positive at [...] back pain Breast calcifications on mammogram Dementia ([facility]) Depression Eczema H/O colonoscopy Hemorrhoid Hx of rosacea Lower extremity edema MARCY (obstructive sleep apnea) The patient wears CPAP Parkinson disease Stroke ([facility]) 2009 Torn meniscus Uterine cancer ([facility]) ([facility]) 2005 PAST SURGICAL HISTORY: Past Surgical History: [...] current facili (more content not included)... Normal [facility] DEXA BONE DENSITY AXIAL EL [facility] 09-05-2023 DEXA BONE DENSITY AXIAL SKELETON Patient [...] dual energy x-ray observed absorptiometry device - HolofeedPack Horizon W. Regions of interest were obtained [...] or less plus fragility fracture indicates severe osteoporosis." FINDINGS: Spine: L1-L4 Density 1.04 g/cm2. T-score: [...] Electronically Signed Date/Time: 09/05/2023 3:32 PM EDT Normal [facility] DXA Skeletal system.axial Vi ews [...] MD Electronically Signed Date/Time: 09/05/2023 3:32 PM [facility] RAD[facility] Patient Name: MADIHA PERALES : 1945 Exam [...] or less plus fragility fracture indicates severe osteoporosis." FINDINGS: Spine: L1-L4 Density 1.04 g/cm2. T-score: -0.1 Z-score: 2.4 Comparison from prior examination:N/A Hip: Femoral neck Density: 0.78 g/cm2. T-score: -0.6 Z-score: 1.6 Hip: Total hip Density: 0.98 g/cm2. T-score: 0.3 Z-score: 2.2 Comparison from prior examination:N/A [facility] RADIOLOG[facility] Brayden Green MD - 09/05/2023 Patient Name: MADIHA PERALES : 1945 [facility]#: [id number] Exam Date/Time: 09/05/2023 10:04 Procedure: DEXA BONE DENSITY AXIAL SKELETON Ordering Provider: ESCOBEDO TERESA Reason For Exam: screening for osteoporosis DEXA BONE DENSITOMETRY: CLINICAL INDICATION: Asymptomatic post-menopausal status COMPARISON: None TECHNIQUE: Quantitative bone mineral densitometry of the hip and lumbar spine was performed with a dual energy x-ray observed absorptiometry device - HolofeedPack Horizon W. Regions of interest were obtained [...] or less plus fragility fracture indicates severe osteoporosis." FINDINGS: Spine: L1-L4 Density 1.04 g/cm2. T-score: [...] Electronically Signed Date/Time: 09/05/2023 3:32 PM EDT [facility] Radiology Study observation (narrative) [facility] DXA Skeletal system.axial Vi ews for bone densityOrdered By: Brayden Green on 09-05-2023 [facility] [employer] Work Phone: CBC W Auto Differential pane l (Bld)on 09-02-2023 Basophils (Bld) [#/Vol] 0.0 10*3/uL 0.0 - 0.2 10*3/uL [facility] [employer] Basophils (Bld) [#/Vol] 0 10*3/uL 0.0 - 0.2 10*3/uL [facility] Basophils/100 WBC (Bld) 0.6 % 0.0 - 2.0 % [facility] [employer] Eosinophils (Bld) [#/Vol] 0.2 10*3/uL 0.0 - 0.5 10*3/uL [facility] Eosinophils/100 WBC (Bld) 3.1 % 0.0 - 6.0 % [facility] Erythrocyte distribution width (RBC) [Ratio] 13.8 % 11.5 - 15.0 % [facility] Hematocrit (Bld) [Volume fraction] 42.0 % 35.0 - 47.0 % [facility] Hematocrit (Bld) [Volume fraction] 42 % 35.0 - 47.0 % [facility] Hemoglobin (Bld) [Mass/Vol] 13.7 g/dL 11.7 - 16.0 g/dL [facility] Immature granulocytes (Bld) [#/Vol] 0.0 10*3/uL NINF - 0.1 10*3/uL [facility] Immature granulocytes (Bld) [#/Vol] 0 10*3/uL NINF - 0.1 10*3/uL [facility] Immature granulocytes/100 WBC (Bld) 0.4 % 0.0 - 2.0 % [facility] Interpretation and review of laboratory results Abnormal [facility] Lymphocytes (Bld) [#/Vol] 0.7 10*3/uL Low 1.0 - 4.3 10*3/uL [facility] Lymphocytes/100 WBC (Bld) 14.3 % Low 15.0 - 45.0 % [facility] MCH (RBC) [Entitic mass] 30.4 pg 26.0 - 34.0 pg [facility] MCHC (RBC) [Mass/Vol] 32.6 % 30.5 - 36.0 % [facility] MCV (RBC) [Entitic vol] 93.3 fL 77.0 - 99.0 fL [facility] Monocytes (Bld) [#/Vol] 0.4 10*3/uL 0.0 - 0.9 10*3/uL [facility] Monocytes/100 WBC (Bld) 8.4 % 5.0 - 13.0 % [facility] Neutrophils (Bld) [#/Vol] 3.7 10*3/uL 1.8 - 7.5 10*3/uL [facility] Neutrophils/100 WBC (Bld) 73.2 % 38.0 - 82.0 % [facility] Nucleated RBC/100 WBC (Bld) [Ratio] 0.0 % [facility] Nucleated RBC/100 WBC (Bld) [Ratio] 0 % [facility] Platelet mean volume (Bld) [Entitic vol] 9.2 fL 9.0 - 12.7 fL [facility] Comment on above: MPV is a calculated measurement using platelet volume ratio Platelets (Bld) [#/Vol] 188 10*3/uL 140 - 440 10*3/uL [facility] RBC (Bld) [#/Vol] 4.50 10*6/uL 3.80 - 5.2 0 10*6/uL [facility] RBC (Bld) [#/Vol] 4.5 10*6/uL 3.80 - 5.2 0 10*6/uL [facility] WBC (Bld) [#/Vol] 5.1 10*3/uL 3.6 - 10.7 10*3/uL [facility] CBC WITH AUTO DIFFERENTIALon 09-02-2023 Basophils (Bld) [#/Vol] 0.0 10*3/uL Normal 0.0-0.[address] [facility] Comment on above: Performed By: #### L [id number] #### Ethylbenzene Converter Operator: GRISELDA ROSALES ([id number]) [facility] ([facility] [address] [place] [address] Basophils/100 WBC (Bld) 0.6 % Normal 0.0-2.0 [facility] Comment on above: Performed By: #### L [id number] #### Ethylbenzene Converter Operator: GRISELDA ROSALES ([id number]) [facility] ([facility] [address] [place] [address] Eosinophils (Bld) [#/Vol] 0.2 10*3/uL Normal 0.0-0.[address] [facility] Comment on above: Performed By: #### L [id number] #### Ethylbenzene Converter Operator: GRISELDA ROSALES ([id number]) [facility] ([facility]) [address] [place] [address] Eosinophils/100 WBC (Bld) 3.1 % Normal 0.0-6.[address] [facility] Comment on above: Performed By: #### L [id number] #### Ethylbenzene Converter Operator: GRISELDA ROSALES ([id number]) [facility] ([facility] [address] [place] [address] Erythrocyte distribution width (RBC) [Ratio] 13.8 % Normal 11.5-15.[address] [facility] Comment on above: Performed By: #### L [id number] #### Ethylbenzene Converter Operator: GRISELDA ROSALES ([phone]) [facility] ([facility] [address] [place] [address] Hematocrit (Bld) [Volume fraction] 42.0 % Normal 35.0-47.[address] [facility] Comment on above: Performed By: #### L [id number] #### Ethylbenzene Converter Operator: GRISELDA ROSALES ([phone]) [facility] ([facility] [address] [place] [address] Hemoglobin (Bld) [Mass/Vol] 13.7 g/dL Normal 11.7-16.[address] [facility] Comment on above: Performed By: #### L [id number] #### Ethylbenzene Converter Operator: GRISELDA ROSALES ([id number]) [facility] ([facility] [address] [place] [address] IMMATURE GRANS % 0.4 % Normal 0.0-2.0 [facility] Comment on above: Performed By: #### L [id number] #### Ethylbenzene Converter Operator: GRISELDA ROSALES ([phone]) [facility] ([facility] [address] [place] [address] IMMATURE GRANS ABSOLUTE 0.0 10*3/uL Normal <0.[address] [facility] Comment on above: Performed By: #### L [id number] #### Ethylbenzene Converter Operator: GRISELDA ROSALES ([id number]) [facility] ([facility] [address] [place] [address] Lymphocytes (Bld) [#/Vol] 0.7 10*3/uL Low 1.0-4.[address] [facility] Comment on above: Performed By: #### L [id number] #### Ethylbenzene Converter Operator: GRISELDA ROSALES ([phone]) [facility] ([facility] [address] [place] [address] Lymphocytes/100 WBC (Bld) 14.3 % Low 15.0-45.[address] [facility] Comment on above: Performed By: #### L [id number] #### Ethylbenzene Converter Operator: GRISELDA ROSALES ([id number]) [facility] [address] [place] [address] MCH (RBC) [Entitic mass] 30.4 pg Normal 26.0-34.[address] [facility] Comment on above: Performed By: #### L [id number] #### Ethylbenzene Converter Operator: GRISELDA SIMMONSTigistADALGISA ([id number]) [facility] [address] [place] [address] MCHC 32.6 % Normal 30.5-36.0 [facility] [facility] Comment on above: Performed By: #### L [id number] #### Ethylbenzene Converter Operator: GRISELDA CONNIE ([phone]) [facility] [address] [place] [address] MCV (RBC) [Entitic vol] 93.3 fL Normal 77.0-99.0 [facility] Comment on above: Performed By: #### L [id number] #### Ethylbenzene Converter Operator: GRISELDA SIMMONSJAKE ([phone]) [facility] ([facility] [address] [place] [address] Monocytes (Bld) [#/Vol] 0.4 10*3/uL Normal 0.0-0.9 [facility] Comment on above: Performed By: #### L [id number] #### Ethylbenzene Converter Operator: GRISELDA SIMMONSJAKE ([phone]) [facility] ([facility] [address] [place] [address] Monocytes/100 WBC (Bld) 8.4 % Normal 5.0-13.0 [facility] Comment on above: Performed By: #### L [id number] #### Ethylbenzene Converter Operator: GRISELDA ROSALES ([id number]) [facility] ([facility]) [address] [place] [address] NEUTROPHILS ABSOLUTE 3.7 10*3/uL Normal 1.8-7.5 [facility] Comment on above: Performed By: #### L [id number] #### Ethylbenzene Converter Operator: GRISELDA HAYSADALGISA ([id number]) [facility] [address] [place] [address] Neutrophils/100 WBC (Bld) 73.2 % Normal 38.0-82.0 [facility] Comment on above: Performed By: #### L [id number] #### Ethylbenzene Converter Operator: GRISELDA ROSALES ([id number]) [facility] (SLMLAB) [address] [place] [address] NRBC 0.0 /100 WBCs Normal 0.0-2.0 [facility] Comment on above: Performed By: #### L [id number] #### Ethylbenzene Converter Operator: GRISELDA ROSALES ([phone]) [facility] ([facility]) [address] [place] [address] Platelet mean volume (Bld) [Entitic vol] 9.2 fL Normal 9.0-12.7 [facility] Comment on above: Result Comment: MPV is a calculated measurement using platelet volume ratio Performed By: #### L [id number] #### Ethylbenzene Converter Operator: GRISELDA ROSALES ([id number]) [facility] ([facility] [address] [place] [address] Platelets (Bld) [#/Vol] 188 10*3/uL Normal 140-440 [facility] Comment on above: Performed By: #### L [id number] #### Ethylbenzene Converter Operator: GRISELDA ROSALES ([id number]) [facility] ([facility] [address] [place] [address] RBC (Bld) [#/Vol] 4.50 10*6/uL Normal 3.80-5.20 [facility] Comment on above: Performed By: #### L [id number] #### Ethylbenzene Converter Operator: GRISELDA ROSALES ([id number]) [facility] ([facility]) [address] [place] [address] WBC (Bld) [#/Vol] 5.1 10*3/uL Normal 3.6-10.7 [facility] Comment on above: Performed By: #### L [id number] #### Ethylbenzene Converter Operator: GRISELDA ROSALES ([phone]) [facility] ([facility]) [address] [place] [address] Comprehensive metabolic 2000 panelOrdered By: Annie Montalvo on 09-02-2023 Albumin [Mass/Vol] 3.3 g/dL 3.3 - 5.5 g/dL [facility] ALP [Catalytic activity/Vol] 75 U/L 42 - 141 U/L [facility] ALT [Catalytic activity/Vol] 16 U/L 10 - 47 U/L [facility] Anion gap [Moles/Vol] 8.00 mmol/L -4.00 - 12.00 mmol/L [facility] Anion gap [Moles/Vol] 8 mmol/L -4.00 - 12.00 mmol/L [facility] AST [Catalytic activity/Vol] 29 U/L 11 - 38 U/L [facility] Bilirubin [Mass/Vol] 0.6 mg/dL 0.2 - 1 .6 mg/dL [facility] Calcium [Mass/Vol] 9.3 mg/dL 8.0 - 10. 3 mg/dL [facility] Chloride [Moles/Vol] 108 mmol/L [facility] CO2 [Moles/Vol] 27 mmol/L [facility] lth GFR/1.73 sq M.predicted MDRD (S/P/Bld) [Vol rate/Area] 76.0 mL/min/{1.73_m2} - [facility] th GFR/1.73 sq M.predicted MDRD (S/P/Bld) [Vol rate/Area] 76 mL/min/{1.73_m2} - [facility] Glucose [Mass/Vol] 132 mg/dL High 73 - 118 mg/dL [facility] Interpretation and review of laboratory results Abnormal [facility] Potassium [Moles/Vol] 3.8 mmol/L [facility] Protein [Mass/Vol] 6.4 g/dL 6.4 - 8.1 g/dL [facility] Sodium [Moles/Vol] 143 mmol/L [facility] Urea nitrogen [Mass/Vol] 15 mg/dL 7 - 22 mg/dL [facility] Urea nitrogen/Creatinine [Mass ratio] 0.8 mg/dL 0.6 - 1.2 mg/dL [facility] Office Visiton 09-02-2023 Follow-up visit [id number] Madiha Perales 1945 F Date Provider Department Center 09/02/2023 [id number] ESCOBEDO ONC None Family History Problem Relation Age of Onset Breast cancer Mother Lung cancer Father Colon cancer Paternal Grandfather Family Status - Relation Status Age at Mother Father Paternal Grandfather Level of Service:61653 [place] OFFICE/OUTPATIENT ESTABLISHED MOD [facility] 30 MIN Reason for Visit and Comments: Follow-up [520369] Normal [facility] Progress Noteon 09-02-2023 Progress Note Patient arrived [...] cath intact. Patient ambulatory upon discharge. Normal [facility] Progress Note Hematology/Oncology Office Visit Oncology History: 1) stage 1A left breast cancer, invasive ductal carcinoma grade 3. ER+ MA+ HER2+. cT1b N0 M0; pT1c N0 M0, diagnosed 01/28/23. - Patient is a 78 yo F who presented with an abnormal screening mammogram of the upper outer quadrant of the left breast on 11/27/22. Diagnostic imaging and ultrasound were performed on 01/21/2023: a 0.9 x 0.9 x 1 cm irregular mass in the left breast. Biopsy was performed at [facility] on 01/28/2023 confirming grade 3 invasive ductal carcinoma ER positive 100%, MA positive 70% and HER2 positive at 3+. The patient underwent lumpectomy and sentinel node removal on 02/18/[address] Choi at [facility]: pathology revealed grade 3 invasive ductal carcinoma measuring 1.9 cm. There was focal DCIS and extensive lymphovascular invasion. Margins were negative for invasive and in situ component at greater than 2 mm. 6 axillary nodes were removed: 5 sentinel and 1 nonsentinel. All were negative.Pathological ly staged T1CN0. - she was referred to [facility] for medical and radiation oncology. Her [...] The patient wears CPAP Parkinson disease Stroke ([facility]) 2009 Torn meniscus Uterine cancer ([facility]) ([facility]) 2005 Past Surgical History: Procedure Laterality Date [...] left breast in female, estrogen receptor positive ([facility]) ([facility]) 03/18/2023 Edema of both lower extremities 02/05/2023 [...] mouth in the (more content not included)... [facility] 81on 08-12-2023 RADIATION ONCOLOGY TREATMENT SUMMARY PATIENT: Madiha Perales DATE OF SERVICE: 08/12/2023 : 1945 AGE: 79 y.o. PRIMARY SITE AND HISTOPATHOLOGY: Left breast, grade 3 invasive ductal carcinoma, ER positive, MA positive, HER2 positive. STAGE: cT1b N0 M0, [...] the left breast. Biopsy was performed at [facility] on 01/28/2023. This revealed grade 3 invasive ductal carcinoma measuring at least 8 mm in dimension. ER positive at 100%, MA positive at 70% and HER2 positive at [...] appointment was made. Vicki Diego MD [facility] [place] Department of Radiation Oncology is an Accredited Facility of the [employer] (ACR). This document was [...] addressed to the provider for clarification. Normal [facility] CBC W Auto Differential pane l (Bld)Ordered By: Radha Rain on 08-12-2023 Basophils (Bld) [#/Vol] 0.0 10*3/uL 0.0 - 0.2 10*3/uL [facility] Basophils (Bld) [#/Vol] 0 10*3/uL 0.0 - 0.2 10*3/uL [facility] Basophils/100 WBC (Bld) 0.4 % 0.0 - 2.0 % [facility] Eosinophils (Bld) [#/Vol] 0.1 10*3/uL 0.0 - 0.5 10*3/uL [facility] Eosinophils/100 WBC (Bld) 2.1 % 1.0 - 6.0 % [facility] Erythrocyte distribution width (RBC) [Ratio] 14.0 % 11.5 - 14.5 % [facility] Erythrocyte distribution width (RBC) [Ratio] 14 % 11.5 - 14.5 % [facility] Hematocrit (Bld) [Volume fraction] 41.2 % 35.0 - 47.0 % [facility] Hemoglobin (Bld) [Mass/Vol] 13.6 g/dL 11.7 - 16.0 g/dL [facility] Immature granulocytes (Bld) [#/Vol] 0.0 10*3/uL NINF - 0.0 10*3/uL [facility] Immature granulocytes (Bld) [#/Vol] 0 10*3/uL NINF - 0.0 10*3/uL [facility] Immature granulocytes/100 WBC (Bld) 0.6 % High NINF - 0.0 % [facility] Interpretation and review of laboratory results Abnormal [facility] Lymphocytes (Bld) [#/Vol] 0.9 10*3/uL Low 1.0 - 4.3 10*3/uL [facility] Lymphocytes/100 WBC (Bld) 12.6 % Low 20.0 - 40.0 % [facility] MCH (RBC) [Entitic mass] 30.7 pg 26.0 - 34.0 pg [facility] MCHC (RBC) [Mass/Vol] 33.0 % 32.0 - 36.0 % [facility] MCHC (RBC) [Mass/Vol] 33 % 32.0 - 36.0 % [facility] MCV (RBC) [Entitic vol] 93.0 fL 80.0 - 98.0 fL [facility] MCV (RBC) [Entitic vol] 93 fL 80.0 - 98.0 fL [facility] Monocytes (Bld) [#/Vol] 0.5 10*3/uL 0.0 - 0.8 10*3/uL [facility] Monocytes/100 WBC (Bld) 6.7 % 2.0 - 10.0 % [facility] Neutrophils (Bld) [#/Vol] 5.2 10*3/uL 1.8 - 7.0 10*3/uL [facility] Neutrophils/100 WBC (Bld) 77.6 % 40.0 - 80.0 % [facility] Platelet mean volume (Bld) [Entitic vol] 9.9 fL 7.4 - 12.4 fL [facility] Comment on above: MPV is a calculated measurement using platelet volume ratio Platelets (Bld) [#/Vol] 224 10*3/uL 140 - 440 10*3/uL [facility] RBC (Bld) [#/Vol] 4.43 10*6/uL 3.8 - 5.20 10*6/uL [facility] WBC (Bld) [#/Vol] 6.7 10*3/uL 3.6 - 10.7 10*3/uL [facility] CBC WITH AUTO DIFFERENTIALon 08-12-2023 Basophils (Bld) [#/Vol] 0.0 10*3/uL Normal 0.0-0.[address] [facility] Comment on above: Performed By: #### L [id number] ####Ethylbenzene Converter Operator: GRISELDA ROSALES ([id number])[facility] ([facility])[address] [place] [address] Basophils/100 WBC (Bld) 0.4 % Normal 0.0-2.0 [facility] Comment on above: Performed By: #### L [id number] ####Ethylbenzene Converter Operator: GRISELDA ROSALES ([id number])[facility] (SLMLAB)[address] [place] [address] Eosinophils (Bld) [#/Vol] 0.1 10*3/uL Normal 0.0-0.5 [facility] Comment on above: Performed By: #### L [id number] ####Ethylbenzene Converter Operator: GRISELDA HAYSADALGISA ([phone])[facility] ([facility])[address] [place] [address] Eosinophils/100 WBC (Bld) 2.1 % Normal 1.0-6.0 [facility] Comment on above: Performed By: #### L [id number] ####Ethylbenzene Converter Operator: GRISELDA ROSALES ([id number])[facility] ([facility])[address] [place] [address] Erythrocyte distribution width (RBC) [Ratio] 14.0 % Normal 11.5-14.5 [facility] Comment on above: Performed By: #### L [id number] ####Ethylbenzene Converter Operator: GRISELDA ROSALES ([id number])[facility] ([facility])[address] [place] [address] ERYTHROCYTE MEAN CORPUSCULAR HEMOGLOBIN CONCENTRATION (G/DL) BY AUTOMATED 33.0 % Normal 32.0-36.0 [facility] Comment on above: Performed By: #### L [id number] ####Ethylbenzene Converter Operator: GRISELDA ROSALES ([id number])[facility] ([facility])[address] [place] [address] Hematocrit (Bld) [Volume fraction] 41.2 % Normal 35.0-47.0 [facility] Comment on above: Performed By: #### L [id number] ####Ethylbenzene Converter Operator: GRISELDA ROSALES ([phone])[facility] ([facility])[address] [place] [address] Hemoglobin (Bld) [Mass/Vol] 13.6 g/dL Normal 11.7-16.0 [facility] Comment on above: Performed By: #### L [id number] ####Ethylbenzene Converter Operator: GRISELDA ROSALES ([phone])[facility] ([facility])[address] [place] [address] IMMATURE GRANS (10*3/UL) IN BLOOD BY AUTOMATED COUNT 0.0 10*3/uL Normal <=0.[address] [facility] Comment on above: Performed By: #### L [id number] ####Ethylbenzene Converter Operator: GRISELDA ROSALES ([phone])[facility] ([facility])[address] [place] [address] IMMATURE GRANS/100 LEUKOCYTES IN BLOOD BY AUTOMATED COUNT 0.6 % High <=0.[address] [facility] Comment on above: Performed By: #### L [id number] ####Ethylbenzene Converter Operator: GRISELDA ROSALES ([id number])[facility] ([facility])[address] [place] [address] Lymphocytes (Bld) [#/Vol] 0.9 10*3/uL Low 1.0-4.[address] [facility] Comment on above: Performed By: #### L [id number] ####Ethylbenzene Converter Operator: GRISELDA ROSALES ([phone])[facility] ([facility])[address] [place] [address] Lymphocytes/100 WBC (Bld) 12.6 % Low 20.0-40.[address] [facility] Comment on above: Performed By: #### L [id number] ####Ethylbenzene Converter Operator: GRISELDA ROSALES ([phone])[facility] ([facility])[address] [place] [address] MCH (RBC) [Entitic mass] 30.7 pg Normal 26.0-34.[address] [facility] Comment on above: Performed By: #### L [id number] ####Ethylbenzene Converter Operator: GRISELDA ROSALES ([id number])[facility] ([facility])[address] [place] [address] MCV (RBC) [Entitic vol] 93.0 fL Normal 80.0-98.0 [facility] Comment on above: Performed By: #### L [id number] ####Ethylbenzene Converter Operator: GRISELDA ROSALES ([id number])[facility] ([facility])[address] [place] [address] Monocytes (Bld) [#/Vol] 0.5 10*3/uL Normal 0.0-0.8 [facility] Comment on above: Performed By: #### L [id number] ####Ethylbenzene Converter Operator: GRISELDA CONNIE ([id number])[facility] (MLAB)[address] [place] [address] Monocytes/100 WBC (Bld) 6.7 % Normal 2.0-10.0 [facility] Comment on above: Performed By: #### L [id number] ####Ethylbenzene Converter Operator: GRISELDA SIMMONSJAKE ([id number])[facility] ([facility])[address] [place] [address] Neutrophils (Bld) [#/Vol] 5.2 10*3/uL Normal 1.8-7.0 [facility] Comment on above: Performed By: #### L [id number] ####Ethylbenzene Converter Operator: GRISELDA ROSALES ([phone])[facility] ([facility])[address] [place] [address] Neutrophils/100 WBC (Bld) 77.6 % Normal 40.0-80.0 [facility] Comment on above: Performed By: #### L [id number] ####Ethylbenzene Converter Operator: GRISELDA ROSALES ([id number])[facility] ([facility])[address] [place] [address] Platelet mean volume (Bld) [Entitic vol] 9.9 fL Normal 7.4-12.4 [facility] Comment on above: Result Comment: MPV is a calculated measurement using platelet volume ratio Performed By: #### L [id number] ####Ethylbenzene Converter Operator: GRISELDA ROSALES ([id number])[facility] ([facility])[address] [place] [address] Platelets (Bld) [#/Vol] 224 10*3/uL Normal 140-440 [facility] Comment on above: Performed By: #### L [id number] ####Ethylbenzene Converter Operator: GRISELDA ROSALES ([id number])[facility] ([facility])[address] [place] [address] RBC (Bld) [#/Vol] 4.43 10*6/uL Normal 3.8-5.20 [facility] Comment on above: Performed By: #### L [id number] ####Ethylbenzene Converter Operator: GRISELDA ROSALES ([id number])[facility] ([facility])[address] [place] [address] WBC (Bld) [#/Vol] 6.7 10*3/uL Normal 3.6-10.7 [facility] Comment on above: Performed By: #### L [id number] ####Ethylbenzene Converter Operator: GRISELDA ROSALES ([id number])[facility] ([facility])[address] [place] [address] COMPREHENSIVE METABOLIC PANE L, WHOLE BLOODon 08-12-2023 Albumin [Mass/Vol] 3.3 g/dL Normal 3.3-5.1 [facility] Comment on above: Performed By: #### L [id number] ####Ethylbenzene Converter Operator: GRISELDA ROSALES ([id number])[facility] ([facility])[address] [place] [address] ALP [Catalytic activity/Vol] 77 U/L Normal 28-[address] [facility] Comment on above: Performed By: #### L [id number] ####Ethylbenzene Converter Operator: GRISELDA ROSALES ([id number])[facility] ([facility])[address] [place] [address] ALT [Catalytic activity/Vol] 29 U/L Normal 14-[address] [facility] Comment on above: Performed By: #### L [id number] ####Ethylbenzene Converter Operator: GRISELDA ROSALES ([id number])[facility] ([facility])[address] [place] [address] ANION GAP, WHOLE BLOOD-ANIPI 4.00 mmol/L Normal 3.00-13.00 [facility] Comment on above: Performed By: #### L [id number] ####Ethylbenzene Converter Operator: GRISELDA ROSALES ([id number])[facility] [place] [address] AST [Catalytic activity/Vol] 38 U/L Normal 15-41 [facility] Comment on above: Performed By: #### L [id number] ####Ethylbenzene Converter Operator: GRISELDA ROSALES ([id number])[facility])[address] [place] [address] Bilirubin [Mass/Vol] 0.6 mg/dL Normal 0.0-1.3 [facility] Comment on above: Performed By: #### L [id number] ####Ethylbenzene Converter Operator: GRISELDA ROSALES ([id number])[facility] ([facility])[address] [place] [address] Calcium [Mass/Vol] 9.0 mg/dL Normal 8.1-10.1 [facility] Comment on above: Performed By: #### L [id number] ####Ethylbenzene Converter Operator: GRISELDA ROSALES ([id number])[facility] ([facility])[address] [place] [address] Chloride [Moles/Vol] 108 mmol/L Normal 98-114 [facility] Comment on above: Performed By: #### L [id number] ####Ethylbenzene Converter Operator: GRISELDA ROSALES ([id number])[facility] ([facility])[address] [place] [id number] [place] [address] CO2 [Moles/Vol] 28 mmol/L Normal 21-29 [facility] Comment on above: Performed By: #### L [id number] ####Ethylbenzene Converter Operator: GRISELDA ROSALES ([id number])[facility] ([facility])[address] [place] [address] [facility] Creatinine [Mass/Vol] 0.7 mg/dL Normal 0.6-1.4 [facility] Comment on above: Performed By: #### L [id number] ####Ethylbenzene Converter Operator: GRISELDA ROSALES ([id number])[facility] ([facility])[address] [place] [address] EGFR, WHOLE BLOOD-THUY 89.2 mL/min/1.73m*2 Normal >60.0 [facility] Comment on above: Result Comment: Calc ulation based on the Chronic Kidney Disease Epidemiology Collaboration (CKD-EPI) equation refit without adjustment for race Performed By: #### L [id number] ####Ethylbenzene Converter Operator: GRISELDA ROSALES ([id number])[facility] ([facility])[address] [place] [address] Glucose [Mass/Vol] 128 mg/dL High 67-100 [facility] Comment on above: Performed By: #### L [id number] ####Ethylbenzene Converter Operator: GRISELDA ROSALES ([id number])[facility])[address] [place] [address] Potassium [Moles/Vol] 4.5 mmol/L Normal 3.4-5.1 [facility] Comment on above: Performed By: #### L [id number] ####Ethylbenzene Converter Operator: GRISLEDA ROSALES ([id number])[facility] ([facility])[address] [place] [address] Protein [Mass/Vol] 6.5 g/dL Normal 6.0-8.1 [facility] Comment on above: Performed By: #### L [id number] ####Ethylbenzene Converter Operator: GRISELDA ROSALES ([id number])[facility])[address] [place] [address] Sodium [Moles/Vol] 140 mmol/L Normal 133-145 [facility] Comment on above: Performed By: #### L [id number] ####Ethylbenzene Converter Operator: GRISELDA ROSALES ([id number])[facility])[address] [place] [address] Urea nitrogen [Mass/Vol] 17 mg/dL Normal 4-22 [facility] Comment on above: Performed By: #### L [id number] ####Ethylbenzene Converter Operator: GRISELDA ROSALES ([id number])[facility] ([facility])[address] [place] [address] Progress Noteon 08-12-2023 Progress Note Patient arrived for delayed cycle 4 Q 3 week Trazimera. Patient still has cough on ATB. Reports feels well. Encouraged to call PCP to follow up with cough. PIV inserted, blood for CBC and CMP obtained. Infusion complete. PIV d/c'd angio cath intact. Patient ambulatory upon discharge. Normal [facility] CBC W Auto Differential pane l (Bld)Ordered By: Radha Rain on 08-05-2023 Basophils (Bld) [#/Vol] 0.1 10*3/uL 0.0 - 0.2 10*3/uL [facility] Basophils/100 WBC (Bld) 0.8 % 0.0 - 2.0 % [facility] Eosinophils (Bld) [#/Vol] 0.2 10*3/uL 0.0 - 0.5 10*3/uL [facility] Eosinophils/100 WBC (Bld) 3.7 % 1.0 - 6.0 % [facility] Erythrocyte distribution width (RBC) [Ratio] 14.3 % 11.5 - 14.5 % [facility] Hematocrit (Bld) [Volume fraction] 41.6 % 35.0 - 47.0 % [facility] Hemoglobin (Bld) [Mass/Vol] 14.0 g/dL 11.7 - 16.0 g/dL [facility] Immature granulocytes (Bld) [#/Vol] 0.0 10*3/uL NINF - 0.0 10*3/uL [facility] Immature granulocytes/100 WBC (Bld) 0.3 % High NINF - 0.0 % [facility] Interpretation and review of laboratory results Abnormal [facility] Lymphocytes (Bld) [#/Vol] 0.8 10*3/uL Low 1.0 - 4.3 10*3/uL [employer] Snapchat Lymphocytes/100 WBC (Bld) 12.3 % Low 20.0 - 40.0 % [facility] Snap[employer] MCH (RBC) [Entitic mass] 31.3 pg 26.0 - 34.0 pg [facility] MCHC (RBC) [Mass/Vol] 33.7 % 32.0 - 36.0 % [facility] MCV (RBC) [Entitic vol] 93.1 fL 80.0 - 98.0 fL [facility] Monocytes (Bld) [#/Vol] 0.5 10*3/uL 0.0 - 0.8 10*3/uL [facility] Monocytes/100 WBC (Bld) 8.3 % 2.0 - 10.0 % [facility] Neutrophils (Bld) [#/Vol] 4.9 10*3/uL 1.8 - 7.0 10*3/uL [facility] Neutrophils/100 WBC (Bld) 74.6 % 40.0 - 80.0 % [facility] Platelet mean volume (Bld) [Entitic vol] 9.3 fL 7.4 - 12.4 fL [facility] Comment on above: MPV is a calculated measurement using platelet volume ratio Platelets (Bld) [#/Vol] 205 10*3/uL 140 - 440 10*3/uL [facility] RBC (Bld) [#/Vol] 4.47 10*6/uL 3.8 - 5.20 10*6/uL [facility] WBC (Bld) [#/Vol] 6.5 10*3/uL 3.6 - 10.7 10*3/uL [facility] US THYROIDon 07-31-2023 US THYROID Interpreted By: Kayode Beal, STUDY: US THYROID; 07/31/2023 1:58 pm INDICATION: Signs/Symptoms:LEFT SIDETHYROID NODULES, PRESENT FOR YEARS, SEEN AGAIN INCIDENTALLY ON CT OF CHEST. COMPARISON: None. ACCESSION NUMBER(S): [id number] ORDERING CLINICIAN: MARIE DEVI TECHNIQUE: Multiple ultrasonographic [...] are based on the recommendations of the [employer] TI-RADS grading system. ACR [...] Kayode Beal 08/01/2023 8:10 PM Dictation workstation: [id number] [facility] US Thyroid glandon 4 These images are not reportable by radiology [...] 2.2 % 1.0 - 6.0 % [facility] Erythrocyte distribution width (RBC) [Ratio] 15.1 % High 11.5 - 14.5 % [facility] Hematocrit (Bld) [Volume fraction] 40.5 % 35.0 - 47.0 % [facility] Hemoglobin (Bld) [Mass/Vol] 13.4 g/dL 11.7 - 16.0 g/dL [facility] Immature granulocytes (Bld) [#/Vol] 0.0 10*3/uL NINF - 0.0 10*3/uL [facility] Immature granulocytes (Bld) [#/Vol] 0 10*3/uL NINF - 0.0 10*3/uL [facility] Immature granulocytes/100 WBC (Bld) 0.2 % High NINF - 0.0 % [facility] Interpretation and review of laboratory results Abnormal [facility] Lymphocytes (Bld) [#/Vol] 1.1 10*3/uL 1.0 - 4.3 10*3/uL [facility] Lymphocytes/100 WBC (Bld) 18.7 % Low 20.0 - 40.0 % [facility] MCH (RBC) [Entitic mass] 31.1 pg 26.0 - 34.0 pg [facility] MCHC (RBC) [Mass/Vol] 33.1 % 32.0 - 36.0 % [facility] MCV (RBC) [Entitic vol] 94.0 fL 80.0 - 98.0 fL [facility] MCV (RBC) [Entitic vol] 94 fL 80.0 - 98.0 fL [facility] Monocytes (Bld) [#/Vol] 0.4 10*3/uL 0.0 - 0.8 10*3/uL [facility] Monocytes/100 WBC (Bld) 6.4 % 2.0 - 10.0 % [facility] Neutrophils (Bld) [#/Vol] 4.3 10*3/uL 1.8 - 7.0 10*3/uL [facility] Neutrophils/100 WBC (Bld) 71.8 % 40.0 - 80.0 % [facility] Platelet mean volume (Bld) [Entitic vol] 9.3 fL 7.4 - 12.4 fL [facility] Comment on above: MPV is a calculated measurement using platelet volume ratio Platelets (Bld) [#/Vol] 229 10*3/uL 140 - 440 10*3/uL [facility] RBC (Bld) [#/Vol] 4.31 10*6/uL 3.8 - 5.20 10*6/uL [facility] WBC (Bld) [#/Vol] 5.9 10*3/uL 3.6 - 10.7 10*3/uL [facility] Comprehensive metabolic 1998 panelon 07-15-2023 Albumin [Mass/Vol] 4.0 g/dL 3.5 - 5.0 g/dL [facility] Albumin [Mass/Vol] 4 g/dL 3.5 - 5.0 g/dL [facility] ALP [Catalytic activity/Vol] 80 U/L 38 - 126 U/L [facility] ALT [Catalytic activity/Vol] 14 U/L 0 - 34 U/L [facility] Anion gap [Moles/Vol] 6 mmol/L 3 - 13 mmol/L [facility] AST [Catalytic activity/Vol] 43 U/L 15 - 46 U/L [facility] Bilirubin [Mass/Vol] 0.7 mg/dL 0.2 - 1 .3 mg/dL [facility] Calcium [Mass/Vol] 8.8 mg/dL 8.4 - 10. 4 mg/dL [facility] Chloride [Moles/Vol] 106 mmol/L 98 - 10 7 mmol/L [facility] CO2 [Moles/Vol] 26 mmol/L 22 - 30 mmol/L [facility] Creatinine [Mass/Vol] 0.56 mg/dL 0.52 - 1.04 mg/dL [facility] GFR/1.73 sq M.predicted MDRD (S/P/Bld) [Vol rate/Area] - PINF [facility] Comment on above: Calculation based on the Chronic Kidney Disease Epidemiology Collaboration (CKD-EPI) equation refit without adjustment for race Glucose [Mass/Vol] 160 mg/dL High 70 - 100 mg/dL [facility] Interpretation and review of laboratory results Abnormal [facility] Potassium [Moles/Vol] 4.0 mmol/L 3.5 - 5.1 mmol/L [facility] Potassium [Moles/Vol] 4 mmol/L 3.5 - 5.1 mmol/L [facility] Protein [Mass/Vol] 7.1 g/dL 6.3 - 8.2 g/dL [facility] Sodium [Moles/Vol] 138 mmol/L 135 - 145 mmol/L [facility] Urea nitrogen [Mass/Vol] 19 mg/dL High 7 - 17 mg/dL [facility] US Heart TransthoracicOrdere d By: Philippe Hoskins on 06-26-2023 Aortic Root 3.2 cm [facility] Work Phone: AR Max Velocity PISA 3.6 m/s [facility] Work Phone: AR PHT 443.0 ms [facility] Work Phone: Ascending Aorta 3.4 cm [facility] Work Phone: AV Area by Peak Velocity 2.6 cm2 [facility] Work Phone: AV Area by VTI 2.6 cm2 [facility] Work Phone: AV AT 74.22 ms [facility] Work Phone: AV Mean Gradient 3 mmHg [facility] Work Phone: AV Mean Velocity 0.8 m/s [facility] Work Phone: AV Peak Gradient 7 mmHg [facility] Work Phone: AV Peak Velocity 1.4 m/s [facility] Work Phone: AV Velocity Ratio 0.71 [facility] Work Phone: AV VTI 24.0 cm [facility] Work Phone: E/E' Lateral 8.50 [facility] Work Phone: E/E' Ratio (Averaged) 8.50 [facility] Work Phone: E/E' Septal 8.50 [facility] Work Phone: EF BP 62 % 55 - 100 % [facility] Work Phone: Fractional Shortening 2D 33 % 28 - 44 % [facility] Work Phone: [phone] Global Longitudinal Strain -19.4 % [facility] Work Phone: [phone] Global Longitudinal Strain -21.0 % [facility] Work Phone: [phone] Global Longitudinal Strain -13.9 % [facility] Work Phone: Global Longitudinal Strain -18.1 % [facility] Work Phone: Interpretation and review of laboratory results Abnormal [facility] [employer] Work Phone: IVC Diameter 1.3 cm [facility] [employer] Work Phone: IVSd 1.1 cm Abnormal 0.6 - 0.9 cm [facility] [employer] Work Phone: LA Diameter 3.2 cm [facility] [employer] Work Phone: LA Volume 2C 63 mL Abnormal 22 - 52 mL [facility] [employer] Work Phone: LA Volume 4C 51 mL 22 - 52 mL [facility] [employer] Work Phone: LA Volume A/L 61 mL [facility] [employer] Work Phone: LA Volume BP 58 mL Abnormal 22 - 52 mL [facility] [employer] Work Phone: LA/AO Root Ratio 1.00 [facility] Work Phone: LV E' Lateral Velocity 6 cm/s [facility] [employer] Work Phone: LV E' Septal Velocity 6 cm/s [facility] [employer] Work Phone: LV EDV A4C 78 mL [facility] [employer] Work Phone: LV Ejection Fraction A4C 62 % [facility] [employer] Work Phone: LV ESV A4C 30 mL [facility] [employer] Work Phone: LV Mass 2D 188.1 g Abnormal 67 - 162 g [facility] [employer] Work Phone: LV RWT Ratio 0.41 [facility] [employer] Work Phone: LVIDd 4.9 cm 3.9 - 5.3 cm [facility] [employer] Work Phone: LVIDs 3.3 cm [facility] [employer] Work Phone: LVOT Area 3.5 cm2 [facility] [employer] Work Phone: LVOT Cardiac Output 5.6 liter/mi nut e [facility] [employer] Work Phone: LVOT Diameter 2.1 cm [facility] [employer] Work Phone: LVOT Mean Gradient 2 mmHg [facility] [employer] Work Phone: LVOT Peak Gradient 4 mmHg [employer] Work Phone: LVOT Peak Velocity 1.0 m/s [employer] Work Phone: LVOT SV 63.0 ml [employer] Work Phone: LVOT VTI 18.2 cm [employer] Work Phone: LVOT:AV VTI Index 0.76 [facility] [employer] [facility] Work Phone: LVPWd 1.0 cm Abnormal 0.6 - 0.9 cm [employer] Work Phone: MV A Velocity 0.73 m/s [facility] Work Phone: MV E Velocity 0.51 m/s [facility] Work Phone: MV E Wave Deceleration Time 187.8 ms [employer] Work Phone: MV E/A 0.70 [employer] Work Phone: RA Area 4C 52.0 mL [employer] Work Phone: RA Area 4C 50.1 mL [employer] Work Phone: RV Basal Dimension 3.5 cm [facility] [employer] Work Phone: RV Free Wall Peak S' 23 cm/s [employer] Work Phone: RV Mid Dimension 2.7 cm [employer] [facility] Work Phone: TAPSE 2.6 cm 1.7 cm [facility] [employer] Work Phone: [facility] [employer] Work Phone: US Heart Transthoracicon Left Ventricle: [...] [#/Vol] 0.0 10*3/uL 0.0 - 0.2 10*3/uL [facility] [employer] Basophils (Bld) [#/Vol] 0 10*3/uL 0.0 - 0.2 10*3/uL [facility] [employer] Basophils/100 WBC (Bld) 0.6 % 0.0 - 2.0 % [facility] [employer] Eosinophils (Bld) [#/Vol] 0.3 10*3/uL 0.0 - 0.5 10*3/uL [facility] [employer] Eosinophils/100 WBC (Bld) 3.8 % 1.0 - 6.0 % [facility] [employer] Erythrocyte distribution width (RBC) [Ratio] 16.3 % High 11.5 - 14.5 % [facility] [employer] Hematocrit (Bld) [Volume fraction] 39.4 % 35.0 - 47.0 % [facility] [employer] Hemoglobin (Bld) [Mass/Vol] 12.9 g/dL 11.7 - 16.0 g/dL [facility] [employer] Immature granulocytes (Bld) [#/Vol] 0.0 10*3/uL NINF - 0.0 10*3/uL [facility] [employer] Immature granulocytes (Bld) [#/Vol] 0 10*3/uL NINF - 0.0 10*3/uL [facility] Immature granulocytes/100 WBC (Bld) 0.4 % High NINF - 0.0 % [facility] Interpretation and review of laboratory results Abnormal [facility] Lymphocytes (Bld) [#/Vol] 1.2 10*3/uL 1.0 - 4.3 10*3/uL [facility] Lymphocytes/100 WBC (Bld) 17.2 % Low 20.0 - 40.0 % [facility] MCH (RBC) [Entitic mass] 31.2 pg 26.0 - 34.0 pg [facility] MCHC (RBC) [Mass/Vol] 32.7 % 32.0 - 36.0 % [facility] MCV (RBC) [Entitic vol] 95.2 fL 80.0 - 98.0 fL [facility] Monocytes (Bld) [#/Vol] 0.5 10*3/uL 0.0 - 0.8 10*3/uL [facility] Monocytes/100 WBC (Bld) 7.4 % 2.0 - 10.0 % [facility] Neutrophils (Bld) [#/Vol] 4.9 10*3/uL 1.8 - 7.0 10*3/uL [facility] Neutrophils/100 WBC (Bld) 70.6 % 40.0 - 80.0 % [facility] Platelet mean volume (Bld) [Entitic vol] 9.5 fL 7.4 - 12.4 fL [facility] Comment on above: MPV is a calculated measurement using platelet volume ratio Platelets (Bld) [#/Vol] 204 10*3/uL 140 - 440 10*3/uL [facility] RBC (Bld) [#/Vol] 4.14 10*6/uL 3.8 - 5.20 10*6/uL [facility] WBC (Bld) [#/Vol] 6.9 10*3/uL 3.6 - 10.7 10*3/uL [facility] Comprehensive metabolic 1998 panelon 06-24-2023 Albumin [Mass/Vol] 3.9 g/dL 3.5 - 5.0 g/dL [facility] ALP [Catalytic activity/Vol] 110 U/L 38 - 126 U/L [facility] [employer] ALT [Catalytic activity/Vol] 37 U/L High 0 - 34 U/L [facility] Anion gap [Moles/Vol] 6 mmol/L 3 - 13 mmol/L [facility] AST [Catalytic activity/Vol] 40 U/L 15 - 46 U/L [facility] Bilirubin [Mass/Vol] 0.6 mg/dL 0.2 - 1 .3 mg/dL [facility] Calcium [Mass/Vol] 8.9 mg/dL 8.4 - 10. 4 mg/dL [facility] Chloride [Moles/Vol] 107 mmol/L 98 - 10 7 mmol/L [facility] CO2 [Moles/Vol] 25 mmol/L 22 - 30 mmol/L [facility] Creatinine [Mass/Vol] 0.58 mg/dL 0.52 - 1.04 mg/dL [facility] GFR/1.73 sq M.predicted MDRD (S/P/Bld) [Vol rate/Area] - PINF [facility] Comment on above: Calculation based on the Chronic Kidney Disease Epidemiology Collaboration (CKD-EPI) equation refit without adjustment for race Glucose [Mass/Vol] 136 mg/dL High 70 - 100 mg/dL [facility] Interpretation and review of laboratory results Abnormal [facility] Potassium [Moles/Vol] 3.9 mmol/L 3.5 - 5.1 mmol/L [facility] Protein [Mass/Vol] 7.0 g/dL 6.3 - 8.2 g/dL [facility] Protein [Mass/Vol] 7 g/dL 6.3 - 8.2 g/dL [facility] Sodium [Moles/Vol] 139 mmol/L 135 - 145 mmol/L [facility] Urea nitrogen [Mass/Vol] 18 mg/dL High 7 - 17 mg/dL [facility] CBC W Auto Differential pane l (Bld)Ordered By: Radha Rain on 06-03-2023 Basophils (Bld) [#/Vol] 0.1 10*3/uL 0.0 - 0.2 10*3/uL [facility] Basophils/100 WBC (Bld) 0.9 % 0.0 - 2.0 % [facility] Eosinophils (Bld) [#/Vol] 0.1 10*3/uL 0.0 - 0.5 10*3/uL [facility] Eosinophils/100 WBC (Bld) 0.9 % Low 1.0 - 6.0 % [facility] [employer] Erythrocyte distribution width (RBC) [Ratio] 15.8 % High 11.5 - 14.5 % [facility] [employer] Hematocrit (Bld) [Volume fraction] 38.2 % 35.0 - 47.0 % [facility] Hemoglobin (Bld) [Mass/Vol] 12.9 g/dL 11.7 - 16.0 g/dL [facility] [employer] Immature granulocytes (Bld) [#/Vol] 0.1 10*3/uL High NINF - 0.0 10*3/uL [facility] Immature granulocytes/100 WBC (Bld) 1.9 % High NINF - 0.0 % [facility] Interpretation and review of laboratory results Abnormal [facility] [employer] Lymphocytes (Bld) [#/Vol] 0.4 10*3/uL Low 1.0 - 4.3 10*3/uL [facility] Lymphocytes/100 WBC (Bld) 6.2 % Low 20.0 - 40.0 % [facility] [employer] MCH (RBC) [Entitic mass] 31.2 pg 26.0 - 34.0 pg [facility] [employer] MCHC (RBC) [Mass/Vol] 33.8 % 32.0 - 36.0 % [facility] MCV (RBC) [Entitic vol] 92.5 fL 80.0 - 98.0 fL [facility] [employer] Monocytes (Bld) [#/Vol] 0.5 10*3/uL 0.0 - 0.8 10*3/uL [facility] Monocytes/100 WBC (Bld) 6.7 % 2.0 - 10.0 % [facility] [employer] Neutrophils (Bld) [#/Vol] 5.8 10*3/uL 1.8 - 7.0 10*3/uL [facility] Neutrophils/100 WBC (Bld) 83.4 % High 40.0 - 80.0 % [facility] Platelet mean volume (Bld) [Entitic vol] 9.6 fL 7.4 - 12.4 fL [facility] [employer] Comment on above: MPV is a calculated measurement using platelet volume ratio Platelets (Bld) [#/Vol] 251 10*3/uL 140 - 440 10*3/uL [facility] [employer] RBC (Bld) [#/Vol] 4.13 10*6/uL 3.8 - 5.20 10*6/uL [facility] WBC (Bld) [#/Vol] 6.9 10*3/uL 3.6 - 10.7 10*3/uL [facility] Comprehensive metabolic 1998 panelon 06-03-2023 Albumin [Mass/Vol] 3.9 g/dL 3.5 - 5.0 g/dL [facility] ALP [Catalytic activity/Vol] 79 U/L 38 - 126 U/L [facility] ALT [Catalytic activity/Vol] 24 U/L 0 - 34 U/L [facility] Anion gap [Moles/Vol] 12 mmol/L 3 - 13 mmol/L [facility] AST [Catalytic activity/Vol] 45 U/L 15 - 46 U/L [facility] Bilirubin [Mass/Vol] 0.8 mg/dL 0.2 - 1 .3 mg/dL [facility] Calcium [Mass/Vol] 8.8 mg/dL 8.4 - 10. 4 mg/dL [facility] Chloride [Moles/Vol] 100 mmol/L 98 - 10 7 mmol/L [facility] CO2 [Moles/Vol] 22 mmol/L 22 - 30 mmol/L [facility] Creatinine [Mass/Vol] 0.74 mg/dL 0.52 - 1.04 mg/dL [facility] GFR/1.73 sq M.predicted MDRD (S/P/Bld) [Vol rate/Area] 83.4 mL/min/{1.73_m2} - PINF [facility] Comment on above: Calculation based on the Chronic Kidney Disease Epidemiology Collaboration (CKD-EPI) equation refit without adjustment for race Glucose [Mass/Vol] 146 mg/dL High 70 - 100 mg/dL [facility] Interpretation and review of laboratory results Abnormal [facility] Potassium [Moles/Vol] 4.5 mmol/L 3.5 - 5.1 mmol/L [facility] Protein [Mass/Vol] 7.0 g/dL 6.3 - 8.2 g/dL [facility] Sodium [Moles/Vol] 134 mmol/L Low 135 - 145 mmol/L [facility] Urea nitrogen [Mass/Vol] 12 mg/dL 7 - 17 mg/dL [facility] Urinalysis complete panel (U )on 06-03-2023 Bacteria LM.HPF (Urine sed) [#/Area] Moderate Abnormal Negative /HPF [facility] Bilirubin Ql (U) Negative Negative mg/dL [facility] Clarity (U) Clear Clear [facility] Color (U) Yellow Lt. Yellow [facility] Epithelial cells.squamous LM.HPF (Urine sed) [#/Area] 0-2 [facility] Glucose Ql (U) Normal Normal (<70) mg/dL [facility] Hemoglobin Ql (U) 0.06 mg/dL Abnormal Negative [facility] Interpretation and review of laboratory results Abnormal [facility] Ketones (U) [Mass/Vol] Negative Negat susy mg/dL [facility] Leukocyte esterase Test strip Ql (U) 500 Abnormal Negative Jose/uL [facility] Nitrite Ql (U) Negative Negative [facility] Non-Squamous Epithalial Cells, Urine 0-2 Abnormal Negative /HPF [facility] pH (U) 7.0 [pH] 5.0 - 8.0 pH [facility] Protein (U) [Mass/Vol] Negative Negat susy mg/dL [facility] RBC LM.HPF (Urine sed) [#/Area] 3-5 Abnormal [facility] Specific gravity (U) [Rel density] 1.010 1.005 - 1.030 [facility] Urobilinogen (U) [Mass/Vol] Normal Normal (0-1) mg/dL [facility] Volume, Urine 8-12 mL [facility] WBC LM.HPF (Urine sed) [#/Area] 6-10 Abnormal [facility] CBC W Auto Differential pane l (Bld)Ordered By: Radha Rain on 05-27-2023 Basophils (Bld) [#/Vol] 0.0 10*3/uL 0.0 - 0.2 10*3/uL [facility] Basophils/100 WBC (Bld) 0.8 % 0.0 - 2.0 % [facility] Eosinophils (Bld) [#/Vol] 0.1 10*3/uL 0.0 - 0.5 10*3/uL [facility] Eosinophils/100 WBC (Bld) 1.7 % 1.0 - 6.0 % [facility] Erythrocyte distribution width (RBC) [Ratio] 15.8 % High 11.5 - 14.5 % [facility] Hematocrit (Bld) [Volume fraction] 38.5 % 35.0 - 47.0 % [facility] Hemoglobin (Bld) [Mass/Vol] 13.1 g/dL 11.7 - 16.0 g/dL [facility] Immature granulocytes (Bld) [#/Vol] 0.1 10*3/uL High NINF - 0.0 10*3/uL [facility] Immature granulocytes/100 WBC (Bld) 2.1 % High NINF - 0.0 % [facility] Interpretation and review of laboratory results Abnormal [facility] Lymphocytes (Bld) [#/Vol] 0.7 10*3/uL Low 1.0 - 4.3 10*3/uL [facility] Lymphocytes/100 WBC (Bld) 12.7 % Low 20.0 - 40.0 % [facility] MCH (RBC) [Entitic mass] 31.6 pg 26.0 - 34.0 pg [facility] MCHC (RBC) [Mass/Vol] 34.0 % 32.0 - 36.0 % [facility] MCV (RBC) [Entitic vol] 92.8 fL 80.0 - 98.0 fL [facility] Monocytes (Bld) [#/Vol] 0.4 10*3/uL 0.0 - 0.8 10*3/uL [facility] Monocytes/100 WBC (Bld) 7.8 % 2.0 - 10.0 % [facility] Neutrophils (Bld) [#/Vol] 4.0 10*3/uL 1.8 - 7.0 10*3/uL [facility] Neutrophils/100 WBC (Bld) 74.9 % 40.0 - 80.0 % [facility] Platelet mean volume (Bld) [Entitic vol] 9.5 fL 7.4 - 12.4 fL [facility] Comment on above: MPV is a calculated measurement using platelet volume ratio Platelets (Bld) [#/Vol] 226 10*3/uL 140 - 440 10*3/uL [facility] RBC (Bld) [#/Vol] 4.15 10*6/uL 3.8 - 5.20 10*6/uL [facility] WBC (Bld) [#/Vol] 5.3 10*3/uL 3.6 - 10.7 10*3/uL [facility] Comprehensive metabolic 1998 panelon 05-27-2023 Albumin [Mass/Vol] 4.0 g/dL 3.5 - 5.0 g/dL [facility] ALP [Catalytic activity/Vol] 81 U/L 38 - 126 U/L [facility] ALT [Catalytic activity/Vol] 20 U/L 0 - 34 U/L [facility] Anion gap [Moles/Vol] 9 mmol/L 3 - 13 mmol/L [facility] AST [Catalytic activity/Vol] 33 U/L 15 - 46 U/L [facility] Bilirubin [Mass/Vol] 0.6 mg/dL 0.2 - 1 .3 mg/dL [facility] Calcium [Mass/Vol] 8.8 mg/dL 8.4 - 10. 4 mg/dL [facility] Chloride [Moles/Vol] 103 mmol/L 98 - 10 7 mmol/L [facility] CO2 [Moles/Vol] 24 mmol/L 22 - 30 mmol/L [facility] Creatinine [Mass/Vol] 0.54 mg/dL 0.52 - 1.04 mg/dL [facility] GFR/1.73 sq M.predicted MDRD (S/P/Bld) [Vol rate/Area] - PINF [facility] Comment on above: Calculation based on the Chronic Kidney Disease Epidemiology Collaboration (CKD-EPI) equation refit without adjustment for race Glucose [Mass/Vol] 131 mg/dL High 70 - 100 mg/dL [facility] Interpretation and review of laboratory results Abnormal [facility] Potassium [Moles/Vol] 3.7 mmol/L 3.5 - 5.1 mmol/L [facility] Protein [Mass/Vol] 6.7 g/dL 6.3 - 8.2 g/dL [facility] Sodium [Moles/Vol] 135 mmol/L 135 - 145 mmol/L [facility] Urea nitrogen [Mass/Vol] 12 mg/dL 7 - 17 mg/dL [facility] CBC W Auto Differential pane l (Bld)Ordered By: Annie Montalvo on 05-20-2023 Basophils (Bld) [#/Vol] 0.0 10*3/uL 0.0 - 0.2 10*3/uL [facility] Basophils/100 WBC (Bld) 0.7 % 0.0 - 2.0 % [facility] Eosinophils (Bld) [#/Vol] 0.1 10*3/uL 0.0 - 0.5 10*3/uL [facility] Eosinophils/100 WBC (Bld) 1.1 % 1.0 - 6.0 % [facility] Erythrocyte distribution width (RBC) [Ratio] 15.3 % High 11.5 - 14.5 % [facility] Hematocrit (Bld) [Volume fraction] 40.1 % 35.0 - 47.0 % [facility] Hemoglobin (Bld) [Mass/Vol] 13.8 g/dL 11.7 - 16.0 g/dL [facility] Immature granulocytes (Bld) [#/Vol] 0.1 10*3/uL High NINF - 0.0 10*3/uL [facility] Immature granulocytes/100 WBC (Bld) 1.5 % High NINF - 0.0 % [facility] Interpretation and review of laboratory results Abnormal [facility] Lymphocytes (Bld) [#/Vol] 0.6 10*3/uL Low 1.0 - 4.3 10*3/uL [facility] Lymphocytes/100 WBC (Bld) 11.6 % Low 20.0 - 40.0 % [facility] MCH (RBC) [Entitic mass] 31.9 pg 26.0 - 34.0 pg [facility] MCHC (RBC) [Mass/Vol] 34.4 % 32.0 - 36.0 % [facility] MCV (RBC) [Entitic vol] 92.6 fL 80.0 - 98.0 fL [facility] Monocytes (Bld) [#/Vol] 0.3 10*3/uL 0.0 - 0.8 10*3/uL [facility] Monocytes/100 WBC (Bld) 5.8 % 2.0 - 10.0 % [facility] Neutrophils (Bld) [#/Vol] 4.4 10*3/uL 1.8 - 7.0 10*3/uL [facility] Neutrophils/100 WBC (Bld) 79.3 % 40.0 - 80.0 % [facility] Platelet mean volume (Bld) [Entitic vol] 9.8 fL 7.4 - 12.4 fL [facility] Comment on above: MPV is a calculated measurement using platelet volume ratio Platelets (Bld) [#/Vol] 237 10*3/uL 140 - 440 10*3/uL [facility] RBC (Bld) [#/Vol] 4.33 10*6/uL 3.8 - 5.20 10*6/uL [facility] WBC (Bld) [#/Vol] 5.5 10*3/uL 3.6 - 10.7 10*3/uL [facility] Comprehensive metabolic 1998 panelon 05-20-2023 Albumin [Mass/Vol] 4.4 g/dL 3.5 - 5.0 g/dL [facility] ALP [Catalytic activity/Vol] 81 U/L 38 - 126 U/L [facility] ALT [Catalytic activity/Vol] 42 U/L High 0 - 34 U/L [facility] Anion gap [Moles/Vol] 7 mmol/L 3 - 13 mmol/L [facility] AST [Catalytic activity/Vol] 46 U/L 15 - 46 U/L [facility] Bilirubin [Mass/Vol] 0.7 mg/dL 0.2 - 1 .3 mg/dL [facility] Calcium [Mass/Vol] 8.9 mg/dL 8.4 - 10. 4 mg/dL [facility] Chloride [Moles/Vol] 106 mmol/L 98 - 10 7 mmol/L [facility] CO2 [Moles/Vol] 23 mmol/L 22 - 30 mmol/L [facility] Creatinine [Mass/Vol] 0.62 mg/dL 0.52 - 1.04 mg/dL [facility] GFR/1.73 sq M.predicted MDRD (S/P/Bld) [Vol rate/Area] - PINF [facility] Comment on above: Calculation based on the Chronic Kidney Disease Epidemiology Collaboration (CKD-EPI) equation refit without adjustment for race Glucose [Mass/Vol] 115 mg/dL High 70 - 100 mg/dL [facility] Interpretation and review of laboratory results Abnormal [facility] Potassium [Moles/Vol] 4.3 mmol/L 3.5 - 5.1 mmol/L [facility] Protein [Mass/Vol] 7.5 g/dL 6.3 - 8.2 g/dL [facility] Sodium [Moles/Vol] 136 mmol/L 135 - 145 mmol/L [facility] Urea nitrogen [Mass/Vol] 21 mg/dL High 7 - 17 mg/dL [facility] CBC W Auto Differential pane l (Bld)Ordered By: Radha Rain on 05-13-2023 Basophils (Bld) [#/Vol] 0.1 10*3/uL 0.0 - 0.2 10*3/uL [facility] Basophils/100 WBC (Bld) 1.0 % 0.0 - 2.0 % [facility] Eosinophils (Bld) [#/Vol] 0.1 10*3/uL 0.0 - 0.5 10*3/uL [facility] Eosinophils/100 WBC (Bld) 1.8 % 1.0 - 6.0 % [facility] Erythrocyte distribution width (RBC) [Ratio] 14.9 % High 11.5 - 14.5 % [facility] Hematocrit (Bld) [Volume fraction] 38.6 % 35.0 - 47.0 % [facility] Hemoglobin (Bld) [Mass/Vol] 12.9 g/dL 11.7 - 16.0 g/dL [facility] Immature granulocytes (Bld) [#/Vol] 0.1 10*3/uL High NINF - 0.0 10*3/uL [facility] Immature granulocytes/100 WBC (Bld) 1.6 % High NINF - 0.0 % [facility] Interpretation and review of laboratory results Abnormal [facility] Lymphocytes (Bld) [#/Vol] 0.9 10*3/uL Low 1.0 - 4.3 10*3/uL [facility] Lymphocytes/100 WBC (Bld) 17.0 % Low 20.0 - 40.0 % [facility] MCH (RBC) [Entitic mass] 31.2 pg 26.0 - 34.0 pg [facility] MCHC (RBC) [Mass/Vol] 33.4 % 32.0 - 36.0 % [facility] MCV (RBC) [Entitic vol] 93.5 fL 80.0 - 98.0 fL [facility] Monocytes (Bld) [#/Vol] 0.2 10*3/uL 0.0 - 0.8 10*3/uL [facility] Monocytes/100 WBC (Bld) 3.2 % 2.0 - 10.0 % [facility] Neutrophils (Bld) [#/Vol] 3.8 10*3/uL 1.8 - 7.0 10*3/uL [facility] Neutrophils/100 WBC (Bld) 75.4 % 40.0 - 80.0 % [facility] Platelet mean volume (Bld) [Entitic vol] 9.9 fL 7.4 - 12.4 fL [facility] Comment on above: MPV is a calculated measurement using platelet volume ratio Platelets (Bld) [#/Vol] 218 10*3/uL 140 - 440 10*3/uL [facility] RBC (Bld) [#/Vol] 4.13 10*6/uL 3.8 - 5.20 10*6/uL [facility] WBC (Bld) [#/Vol] 5.1 10*3/uL 3.6 - 10.7 10*3/uL [facility] Comprehensive metabolic 1998 panelon 05-13-2023 Albumin [Mass/Vol] 4.0 g/dL 3.5 - 5.0 g/dL [facility] ALP [Catalytic activity/Vol] 89 U/L 38 - 126 U/L [facility] ALT [Catalytic activity/Vol] 36 U/L High 0 - 34 U/L [facility] Anion gap [Moles/Vol] 8 mmol/L 3 - 13 mmol/L [facility] AST [Catalytic activity/Vol] 37 U/L 15 - 46 U/L [facility] Bilirubin [Mass/Vol] 0.5 mg/dL 0.2 - 1 .3 mg/dL [facility] Calcium [Mass/Vol] 8.5 mg/dL 8.4 - 10. 4 mg/dL [facility] Chloride [Moles/Vol] 105 mmol/L 98 - 10 7 mmol/L [facility] CO2 [Moles/Vol] 24 mmol/L 22 - 30 mmol/L [facility] Creatinine [Mass/Vol] 0.72 mg/dL 0.52 - 1.04 mg/dL [facility] GFR/1.73 sq M.predicted MDRD (S/P/Bld) [Vol rate/Area] 86.2 mL/min/{1.73_m2} - PINF [facility] Comment on above: Calculation based on the Chronic Kidney Disease Epidemiology Collaboration (CKD-EPI) equation refit without adjustment for race Glucose [Mass/Vol] 150 mg/dL High 70 - 100 mg/dL [facility] Interpretation and review of laboratory results Abnormal [facility] Potassium [Moles/Vol] 3.6 mmol/L 3.5 - 5.1 mmol/L [facility] Protein [Mass/Vol] 6.7 g/dL 6.3 - 8.2 g/dL [facility] Sodium [Moles/Vol] 137 mmol/L 135 - 145 mmol/L [facility] Urea nitrogen [Mass/Vol] 19 mg/dL High 7 - 17 mg/dL [facility] CBC W Auto Differential pane l (Bld)Ordered By: Radha Rain on 05-06-2023 Basophils (Bld) [#/Vol] 0.0 10*3/uL 0.0 - 0.2 10*3/uL [facility] Basophils/100 WBC (Bld) 0.9 % 0.0 - 2.0 % [facility] Eosinophils (Bld) [#/Vol] 0.1 10*3/uL 0.0 - 0.5 10*3/uL [facility] Eosinophils/100 WBC (Bld) 2.8 % 1.0 - 6.0 % [facility] Erythrocyte distribution width (RBC) [Ratio] 14.6 % High 11.5 - 14.5 % [facility] Hematocrit (Bld) [Volume fraction] 39.2 % 35.0 - 47.0 % [facility] Hemoglobin (Bld) [Mass/Vol] 13.0 g/dL 11.7 - 16.0 g/dL [facility] Immature granulocytes (Bld) [#/Vol] 0.1 10*3/uL High NINF - 0.0 10*3/uL [facility] Immature granulocytes/100 WBC (Bld) 1.7 % High NINF - 0.0 % [facility] Interpretation and review of laboratory results Abnormal [facility] Lymphocytes (Bld) [#/Vol] 0.8 10*3/uL Low 1.0 - 4.3 10*3/uL [facility] Lymphocytes/100 WBC (Bld) 18.0 % Low 20.0 - 40.0 % [facility] MCH (RBC) [Entitic mass] 31.1 pg 26.0 - 34.0 pg [facility] MCHC (RBC) [Mass/Vol] 33.2 % 32.0 - 36.0 % [facility] MCV (RBC) [Entitic vol] 93.8 fL 80.0 - 98.0 fL [facility] Monocytes (Bld) [#/Vol] 0.3 10*3/uL 0.0 - 0.8 10*3/uL [facility] Monocytes/100 WBC (Bld) 5.4 % 2.0 - 10.0 % [facility] Neutrophils (Bld) [#/Vol] 3.3 10*3/uL 1.8 - 7.0 10*3/uL [facility] Neutrophils/100 WBC (Bld) 71.2 % 40.0 - 80.0 % [facility] Platelet mean volume (Bld) [Entitic vol] 10.0 fL 7.4 - 12.4 fL [facility] Comment on above: MPV is a calculated measurement using platelet volume ratio Platelets (Bld) [#/Vol] 184 10*3/uL 140 - 440 10*3/uL [facility] RBC (Bld) [#/Vol] 4.18 10*6/uL 3.8 - 5.20 10*6/uL [facility] WBC (Bld) [#/Vol] 4.7 10*3/uL 3.6 - 10.7 10*3/uL [facility] Comprehensive metabolic 1998 panelon 05-06-2023 Albumin [Mass/Vol] 3.9 g/dL 3.5 - 5.0 g/dL [facility] ALP [Catalytic activity/Vol] 80 U/L 38 - 126 U/L [facility] ALT [Catalytic activity/Vol] 40 U/L High 0 - 34 U/L [facility] Anion gap [Moles/Vol] 9 mmol/L 3 - 13 mmol/L [facility] AST [Catalytic activity/Vol] 36 U/L 15 - 46 U/L [facility] Bilirubin [Mass/Vol] 0.5 mg/dL 0.2 - 1 .3 mg/dL [facility] Calcium [Mass/Vol] 8.6 mg/dL 8.4 - 10. 4 mg/dL [facility] Chloride [Moles/Vol] 105 mmol/L 98 - 10 7 mmol/L [facility] CO2 [Moles/Vol] 24 mmol/L 22 - 30 mmol/L [facility] Creatinine [Mass/Vol] 0.61 mg/dL 0.52 - 1.04 mg/dL [facility] GFR/1.73 sq M.predicted MDRD (S/P/Bld) [Vol rate/Area] - PINF [facility] Comment on above: Calculation based on the Chronic Kidney Disease Epidemiology Collaboration (CKD-EPI) equation refit without adjustment for race Glucose [Mass/Vol] 125 mg/dL High 70 - 100 mg/dL [facility] Interpretation and review of laboratory results Abnormal [facility] Potassium [Moles/Vol] 3.8 mmol/L 3.5 - 5.1 mmol/L [facility] Protein [Mass/Vol] 6.7 g/dL 6.3 - 8.2 g/dL [facility] Sodium [Moles/Vol] 139 mmol/L 135 - 145 mmol/L [facility] Urea nitrogen [Mass/Vol] 22 mg/dL High 7 - 17 mg/dL [facility] CBC W Auto Differential pane l (Bld)Ordered By: Annie Montalvo on 04-29-2023 Basophils (Bld) [#/Vol] 0.0 10*3/uL 0.0 - 0.2 10*3/uL [facility] Basophils/100 WBC (Bld) 0.6 % 0.0 - 2.0 % [facility] Eosinophils (Bld) [#/Vol] 0.1 10*3/uL 0.0 - 0.5 10*3/uL [facility] Eosinophils/100 WBC (Bld) 1.8 % 1.0 - 6.0 % [facility] Erythrocyte distribution width (RBC) [Ratio] 14.5 % 11.5 - 14.5 % [facility] Hematocrit (Bld) [Volume fraction] 40.1 % 35.0 - 47.0 % [facility] Hemoglobin (Bld) [Mass/Vol] 13.4 g/dL 11.7 - 16.0 g/dL [facility] Immature granulocytes (Bld) [#/Vol] 0.1 10*3/uL High NINF - 0.0 10*3/uL [facility] Immature granulocytes/100 WBC (Bld) 1.3 % High NINF - 0.0 % [facility] Interpretation and review of laboratory results Abnormal [facility] Lymphocytes (Bld) [#/Vol] 1.3 10*3/uL 1.0 - 4.3 10*3/uL [facility] Lymphocytes/100 WBC (Bld) 18.5 % Low 20.0 - 40.0 % [facility] MCH (RBC) [Entitic mass] 31.2 pg 26.0 - 34.0 pg [facility] MCHC (RBC) [Mass/Vol] 33.4 % 32.0 - 36.0 % [facility] MCV (RBC) [Entitic vol] 93.3 fL 80.0 - 98.0 fL [facility] Monocytes (Bld) [#/Vol] 0.3 10*3/uL 0.0 - 0.8 10*3/uL [facility] Monocytes/100 WBC (Bld) 4.4 % 2.0 - 10.0 % [facility] Neutrophils (Bld) [#/Vol] 5.0 10*3/uL 1.8 - 7.0 10*3/uL [facility] Neutrophils/100 WBC (Bld) 73.4 % 40.0 - 80.0 % [facility] Platelet mean volume (Bld) [Entitic vol] 9.7 fL 7.4 - 12.4 fL [facility] Comment on above: MPV is a calculated measurement using platelet volume ratio Platelets (Bld) [#/Vol] 211 10*3/uL 140 - 440 10*3/uL [facility] RBC (Bld) [#/Vol] 4.30 10*6/uL 3.8 - 5.20 10*6/uL [facility] WBC (Bld) [#/Vol] 6.8 10*3/uL 3.6 - 10.7 10*3/uL [facility] Comprehensive metabolic 1998 panelon 04-29-2023 Albumin [Mass/Vol] 4.1 g/dL 3.5 - 5.0 g/dL [facility] ALP [Catalytic activity/Vol] 99 U/L 38 - 126 U/L [facility] ALT [Catalytic activity/Vol] 33 U/L 0 - 34 U/L [facility] Anion gap [Moles/Vol] 9 mmol/L 3 - 13 mmol/L [facility] AST [Catalytic activity/Vol] 38 U/L 15 - 46 U/L [facility] Bilirubin [Mass/Vol] 0.4 mg/dL 0.2 - 1 .3 mg/dL [facility] Calcium [Mass/Vol] 8.3 mg/dL Low 8.4 - 10. 4 mg/dL [facility] Chloride [Moles/Vol] 105 mmol/L 98 - 10 7 mmol/L [facility] CO2 [Moles/Vol] 24 mmol/L 22 - 30 mmol/L [facility] Creatinine [Mass/Vol] 0.59 mg/dL 0.52 - 1.04 mg/dL [facility] GFR/1.73 sq M.predicted MDRD (S/P/Bld) [Vol rate/Area] - PINF [facility] Comment on above: Calculation based on the Chronic Kidney Disease Epidemiology Collaboration (CKD-EPI) equation refit without adjustment for race Glucose [Mass/Vol] 121 mg/dL High 70 - 100 mg/dL [facility] Interpretation and review of laboratory results Abnormal [facility] Potassium [Moles/Vol] 4.0 mmol/L 3.5 - 5.1 mmol/L [facility] [employer] Protein [Mass/Vol] 7.0 g/dL 6.3 - 8.2 g/dL [facility] Sodium [Moles/Vol] 139 mmol/L 135 - 145 mmol/L [facility] Urea nitrogen [Mass/Vol] 22 mg/dL High 7 - 17 mg/dL [facility] CBC W Auto Differential pane l (Bld)Ordered By: Radha Rain on 04-22-2023 Basophils (Bld) [#/Vol] 0.0 10*3/uL 0.0 - 0.2 10*3/uL [facility] Basophils/100 WBC (Bld) 0.8 % 0.0 - 2.0 % [facility] Eosinophils (Bld) [#/Vol] 0.1 10*3/uL 0.0 - 0.5 10*3/uL [facility] Eosinophils/100 WBC (Bld) 1.5 % 1.0 - 6.0 % [facility] Erythrocyte distribution width (RBC) [Ratio] 14.3 % 11.5 - 14.5 % [facility] Hematocrit (Bld) [Volume fraction] 39.2 % 35.0 - 47.0 % [facility] Hemoglobin (Bld) [Mass/Vol] 12.9 g/dL 11.7 - 16.0 g/dL [facility] Immature granulocytes (Bld) [#/Vol] 0.1 10*3/uL High NINF - 0.0 10*3/uL [facility] Immature granulocytes/100 WBC (Bld) 1.1 % High NINF - 0.0 % [facility] Interpretation and review of laboratory results Abnormal [facility] Lymphocytes (Bld) [#/Vol] 1.1 10*3/uL 1.0 - 4.3 10*3/uL [facility] Lymphocytes/100 WBC (Bld) 23.4 % 20.0 - 40.0 % [facility] MCH (RBC) [Entitic mass] 30.9 pg 26.0 - 34.0 pg [facility] MCHC (RBC) [Mass/Vol] 32.9 % 32.0 - 36.0 % [facility] MCV (RBC) [Entitic vol] 93.8 fL 80.0 - 98.0 fL [facility] Monocytes (Bld) [#/Vol] 0.5 10*3/uL 0.0 - 0.8 10*3/uL [facility] Monocytes/100 WBC (Bld) 10.0 % 2.0 - 10.0 % [facility] Neutrophils (Bld) [#/Vol] 3.0 10*3/uL 1.8 - 7.0 10*3/uL [facility] Neutrophils/100 WBC (Bld) 63.2 % 40.0 - 80.0 % [facility] Platelet mean volume (Bld) [Entitic vol] 9.3 fL 7.4 - 12.4 fL [facility] Comment on above: MPV is a calculated measurement using platelet volume ratio Platelets (Bld) [#/Vol] 223 10*3/uL 140 - 440 10*3/uL [facility] RBC (Bld) [#/Vol] 4.18 10*6/uL 3.8 - 5.20 10*6/uL [facility] WBC (Bld) [#/Vol] 4.7 10*3/uL 3.6 - 10.7 10*3/uL [facility] Comprehensive metabolic 1998 panelon 04-22-2023 Albumin [Mass/Vol] 3.9 g/dL 3.5 - 5.0 g/dL [facility] ALP [Catalytic activity/Vol] 100 U/L 38 - 126 U/L [facility] ALT [Catalytic activity/Vol] 36 U/L High 0 - 34 U/L [facility] Anion gap [Moles/Vol] 3 mmol/L 3 - 13 mmol/L [facility] AST [Catalytic activity/Vol] 37 U/L 15 - 46 U/L [facility] Bilirubin [Mass/Vol] 0.4 mg/dL 0.2 - 1 .3 mg/dL [facility] Calcium [Mass/Vol] 8.6 mg/dL 8.4 - 10. 4 mg/dL [facility] Chloride [Moles/Vol] 107 mmol/L 98 - 10 7 mmol/L [facility] CO2 [Moles/Vol] 28 mmol/L 22 - 30 mmol/L [facility] Creatinine [Mass/Vol] 0.56 mg/dL 0.52 - 1.04 mg/dL [facility] GFR/1.73 sq M.predicted MDRD (S/P/Bld) [Vol rate/Area] - PINF [facility] Comment on above: Calculation based on the Chronic Kidney Disease Epidemiology Collaboration (CKD-EPI) equation refit without adjustment for race Glucose [Mass/Vol] 139 mg/dL High 70 - 100 mg/dL [facility] Interpretation and review of laboratory results Abnormal [facility] Potassium [Moles/Vol] 3.8 mmol/L 3.5 - 5.1 mmol/L [facility] Protein [Mass/Vol] 6.7 g/dL 6.3 - 8.2 g/dL [facility] Sodium [Moles/Vol] 138 mmol/L 135 - 145 mmol/L [facility] Urea nitrogen [Mass/Vol] 17 mg/dL 7 - 17 mg/dL [facility] CBC W Auto Differential pane l (Bld)Ordered By: Radha Rain on 04-08-2023 Basophils (Bld) [#/Vol] 0.0 10*3/uL 0.0 - 0.2 10*3/uL [facility] Basophils (Bld) [#/Vol] 0 10*3/uL 0.0 - 0.2 10*3/uL [facility] Basophils/100 WBC (Bld) 0.9 % 0.0 - 2.0 % [facility] Eosinophils (Bld) [#/Vol] 0.1 10*3/uL 0.0 - 0.5 10*3/uL [facility] Eosinophils/100 WBC (Bld) 2.6 % 1.0 - 6.0 % [facility] Erythrocyte distribution width (RBC) [Ratio] 14.0 % 11.5 - 14.5 % [facility] Erythrocyte distribution width (RBC) [Ratio] 14 % 11.5 - 14.5 % [facility] Hematocrit (Bld) [Volume fraction] 39.1 % 35.0 - 47.0 % [facility] Hemoglobin (Bld) [Mass/Vol] 12.8 g/dL 11.7 - 16.0 g/dL [facility] Immature granulocytes (Bld) [#/Vol] 0.1 10*3/uL High NINF - 0.0 10*3/uL [facility] Immature granulocytes/100 WBC (Bld) 1.9 % High NINF - 0.0 % [facility] Interpretation and review of laboratory results Abnormal [facility] Lymphocytes (Bld) [#/Vol] 0.9 10*3/uL Low 1.0 - 4.3 10*3/uL [facility] Lymphocytes/100 WBC (Bld) 18.6 % Low 20.0 - 40.0 % [facility] MCH (RBC) [Entitic mass] 31.0 pg 26.0 - 34.0 pg [facility] MCH (RBC) [Entitic mass] 31 pg 26.0 - 34.0 pg [facility] MCHC (RBC) [Mass/Vol] 32.7 % 32.0 - 36.0 % [facility] MCV (RBC) [Entitic vol] 94.7 fL 80.0 - 98.0 fL [facility] Monocytes (Bld) [#/Vol] 0.2 10*3/uL 0.0 - 0.8 10*3/uL [facility] Monocytes/100 WBC (Bld) 3.2 % 2.0 - 10.0 % [facility] Neutrophils (Bld) [#/Vol] 3.4 10*3/uL 1.8 - 7.0 10*3/uL [facility] Neutrophils/100 WBC (Bld) 72.8 % 40.0 - 80.0 % [facility] Platelet mean volume (Bld) [Entitic vol] 10.1 fL 7.4 - 12.4 fL [facility] Comment on above: MPV is a calculated measurement using platelet volume ratio Platelets (Bld) [#/Vol] 186 10*3/uL 140 - 440 10*3/uL [facility] RBC (Bld) [#/Vol] 4.13 10*6/uL 3.8 - 5.20 10*6/uL [facility] WBC (Bld) [#/Vol] 4.7 10*3/uL 3.6 - 10.7 10*3/uL [facility] Comprehensive metabolic 1998 panelon 04-08-2023 Albumin [Mass/Vol] 4.0 g/dL 3.5 - 5.0 g/dL [facility] Albumin [Mass/Vol] 4 g/dL 3.5 - 5.0 g/dL [facility] ALP [Catalytic activity/Vol] 86 U/L 38 - 126 U/L [facility] ALT [Catalytic activity/Vol] 42 U/L High 0 - 34 U/L [facility] Anion gap [Moles/Vol] 2 mmol/L Low 3 - 13 mmol/L [facility] AST [Catalytic activity/Vol] 37 U/L 15 - 46 U/L [facility] Bilirubin [Mass/Vol] 0.6 mg/dL 0.2 - 1 .3 mg/dL [facility] Calcium [Mass/Vol] 8.7 mg/dL 8.4 - 10. 4 mg/dL [facility] Chloride [Moles/Vol] 106 mmol/L 98 - 10 7 mmol/L [facility] CO2 [Moles/Vol] 30 mmol/L 22 - 30 mmol/L [facility] Creatinine [Mass/Vol] 0.60 mg/dL 0.52 - 1.04 mg/dL [facility] Creatinine [Mass/Vol] 0.6 mg/dL 0.52 - 1.04 mg/dL [facility] GFR/1.73 sq M.predicted MDRD (S/P/Bld) [Vol rate/Area] - PINF [facility] Comment on above: Calculation based on the Chronic Kidney Disease Epidemiology Collaboration (CKD-EPI) equation refit without adjustment for race Glucose [Mass/Vol] 88 mg/dL 70 - 100 mg/dL [facility] Interpretation and review of laboratory results Abnormal [facility] Potassium [Moles/Vol] 4.1 mmol/L 3.5 - 5.1 mmol/L [facility] Protein [Mass/Vol] 6.6 g/dL 6.3 - 8.2 g/dL [facility] Sodium [Moles/Vol] 138 mmol/L 135 - 145 mmol/L [facility] Urea nitrogen [Mass/Vol] 21 mg/dL High 7 - 17 mg/dL [facility] CBC W Auto Differential pane l (Bld)Ordered By: Radha Rain on 04-01-2023 Basophils (Bld) [#/Vol] 0.0 10*3/uL 0.0 - 0.2 10*3/uL [facility] Basophils/100 WBC (Bld) 0.1 % 0.0 - 2.0 % [facility] Eosinophils (Bld) [#/Vol] 0.0 10*3/uL 0.0 - 0.5 10*3/uL [facility] Eosinophils/100 WBC (Bld) 0.0 % Low 1.0 - 6.0 % [facility] Erythrocyte distribution width (RBC) [Ratio] 13.8 % 11.5 - 14.5 % [facility] Hematocrit (Bld) [Volume fraction] 42.8 % 35.0 - 47.0 % [facility] Hemoglobin (Bld) [Mass/Vol] 14.1 g/dL 11.7 - 16.0 g/dL [facility] Immature granulocytes (Bld) [#/Vol] 0.0 10*3/uL NINF - 0.0 10*3/uL [facility] Immature granulocytes/100 WBC (Bld) 0.3 % High NINF - 0.0 % [facility] Interpretation and review of laboratory results Abnormal [facility] Lymphocytes (Bld) [#/Vol] 0.7 10*3/uL Low 1.0 - 4.3 10*3/uL [facility] Lymphocytes/100 WBC (Bld) 5.2 % Low 20.0 - 40.0 % [facility] MCH (RBC) [Entitic mass] 30.7 pg 26.0 - 34.0 pg [facility] MCHC (RBC) [Mass/Vol] 32.9 % 32.0 - 36.0 % [facility] MCV (RBC) [Entitic vol] 93.2 fL 80.0 - 98.0 fL [facility] Monocytes (Bld) [#/Vol] 0.4 10*3/uL 0.0 - 0.8 10*3/uL [facility] Monocytes/100 WBC (Bld) 2.6 % 2.0 - 10.0 % [facility] Neutrophils (Bld) [#/Vol] 12.3 10*3/uL High 1.8 - 7.0 10*3/uL [facility] Neutrophils/100 WBC (Bld) 91.8 % High 40.0 - 80.0 % [facility] Platelet mean volume (Bld) [Entitic vol] 9.8 fL 7.4 - 12.4 fL [facility] Comment on above: MPV is a calculated measurement using platelet volume ratio Platelets (Bld) [#/Vol] 221 10*3/uL 140 - 440 10*3/uL [facility] RBC (Bld) [#/Vol] 4.59 10*6/uL 3.8 - 5.20 10*6/uL [facility] WBC (Bld) [#/Vol] 13.4 10*3/uL High 3.6 - 10.7 10*3/uL [facility] Comprehensive metabolic 1998 panelon 04-01-2023 Albumin [Mass/Vol] 4.5 g/dL 3.5 - 5.0 g/dL [facility] ALP [Catalytic activity/Vol] 98 U/L 38 - 126 U/L [facility] ALT [Catalytic activity/Vol] 20 U/L 0 - 34 U/L [facility] Anion gap [Moles/Vol] 8 mmol/L 3 - 13 mmol/L [facility] AST [Catalytic activity/Vol] 28 U/L 15 - 46 U/L [facility] Bilirubin [Mass/Vol] 0.5 mg/dL 0.2 - 1 .3 mg/dL [facility] Calcium [Mass/Vol] 9.0 mg/dL 8.4 - 10. 4 mg/dL [facility] Chloride [Moles/Vol] 107 mmol/L 98 - 10 7 mmol/L [facility] CO2 [Moles/Vol] 23 mmol/L 22 - 30 mmol/L [facility] Creatinine [Mass/Vol] 0.55 mg/dL 0.52 - 1.04 mg/dL [facility] GFR/1.73 sq M.predicted MDRD (S/P/Bld) [Vol rate/Area] - PINF [facility] Comment on above: Calculation based on the Chronic Kidney Disease Epidemiology Collaboration (CKD-EPI) equation refit without adjustment for race Glucose [Mass/Vol] 196 mg/dL High 70 - 100 mg/dL [facility] Interpretation and review of laboratory results Abnormal [facility] Potassium [Moles/Vol] 3.9 mmol/L 3.5 - 5.1 mmol/L [facility] Protein [Mass/Vol] 7.5 g/dL 6.3 - 8.2 g/dL [facility] Sodium [Moles/Vol] 138 mmol/L 135 - 145 mmol/L [facility] Urea nitrogen [Mass/Vol] 21 mg/dL High 7 - 17 mg/dL [facility] US Heart TransthoracicOrdere d By: Miller Kim on 03-26-2023 AR [employer] PISA 3.9 m/s [facility] [employer] Work Phone: AR PHT 578.7 ms [facility] [employer] Work Phone: E/E' Lateral 9.00 [facility] [employer] Work Phone: E/E' Ratio (Averaged) 9.64 [facility] [employer] Work Phone: E/E' Septal 10.29 [facility] [employer] Work Phone: EF BP 63 % 55 - 100 % [facility] [employer] Work Phone: Est. RA Pressure 3 mmHg [facility] Work Phone: Fractional Shortening 2D 35 % 28 - 44 % [facility] [employer] Work Phone: Global Longitudinal Strain -17.0 % [facility] [employer] Work Phone: Interpretation and review of laboratory results Abnormal [facility] [employer] Work Phone: IVC Diameter 1.6 cm [facility] [employer] Work Phone: IVSd 0.9 cm 0.6 - 0.9 cm [facility] [employer] Work Phone: LA Volume 2C 71 mL Abnormal 22 - 52 mL [facility] [employer] Work Phone: LA Volume 4C 37 mL 22 - 52 mL [facility] [employer] Work Phone: LA Volume A/L 55 mL [facility] [employer] Work Phone: LA Volume Index 2C 36 mL/m2 Abnormal 16 - 34 mL/m2 [facility] [employer] Work Phone: LA Volume Index 4C 19 mL/m2 16 - 34 mL/m2 [facility] Work Phone: [phone] LA Volume Index A/L 28 mL/m2 16 - 34 mL/m2 [facility] Work Phone: [phone] LV E' Lateral Velocity 8 cm/s [facility] Work Phone: LV E' Septal Velocity 7 cm/s [facility] Work Phone: [phone] LV EDV A2C 70 mL [facility] Work Phone: LV EDV A4C 92 mL [facility] Work Phone: LV EDV BP 81 mL 56 - 104 mL [facility] Work Phone: [phone] LV EDV Index A2C 35 mL/m2 [facility] Work Phone: LV EDV Index A4C 46 mL/m2 [facility] He [facility] Work Phone: LV EDV Index BP 41 mL/m2 [facility] Work Phone: LV Ejection Fraction A2C 59 % [facility] Work Phone: LV Ejection Fraction A4C 67 % [facility] Work Phone: LV ESV A2C 29 mL [facility] Work Phone: LV ESV A4C 31 mL [facility] Work Phone: LV ESV BP 30 mL 19 - 49 mL [facility] Work Phone: LV ESV Index A2C 15 mL/m2 [facility] [employer] Work Phone: LV ESV Index A4C 16 mL/m2 [facility] [employer] Work Phone: LV ESV Index BP 15 mL/m2 [facility] lt Work Phone: LV Mass 2D 117.9 g 67 - 162 g [facility] Work Phone: LV Mass 2D Index 59.2 g/m2 43 - 95 g/m2 [facility] Work Phone: LV RWT Ratio 0.30 [facility] Work Phone: LVIDd 4.6 cm 3.9 - 5.3 cm [employer] Work Phone: [phone] LVIDd Index 2.31 cm/m2 [employer] Work [phone] LVIDs 3.0 cm [employer] Work Phone: [phone] LVIDs Index 1.51 cm/m2 [employer] Work Phone: [phone] LVOT Area 2.8 cm2 [facility] [employer] Work Phone: [phone] LVOT Cardiac Output 4.1 liter/mi nut e [employer] Work Phone: [phone] LVOT Diameter 1.9 cm [facility] [employer] Work Phone: [phone] LVOT Mean Gradient 2 mmHg [employer] Work Phone: [phone] LVOT Peak Gradient 3 mmHg [employer] Work Phone: LVOT Peak Velocity 0.9 m/s [facility] [employer] Work Phone: [phone] LVOT Stroke Volume Index 28.5 mL/m2 [employer] Work Phone: LVOT SV 56.7 ml [employer] Work Phone: LVOT VTI 20.0 cm [employer] Work Phone: LVPWd 0.7 cm 0.6 - 0.9 cm [employer] Work Phone: MV A Velocity 1.10 m/s [facility] Work Phone: MV E Velocity 0.72 m/s [facility] Work Phone: MV E Wave Deceleration Time 198.7 ms [facility] [employer] Work Phone: [phone] MV E/A 0.65 [facility] [employer] Work Phone: RV Free Wall Peak S' 11 cm/s [facility] Work Phone: [phone] TAPSE 2.4 cm 1.7 cm [facility] Work Phone: [phone] [employer] Work Phone: Heart Transthoracicon Left Ventricle: Left ventricle [...] CV CPACS US LOC BREAST LEFTon 023 [facility] BNPon 02-06-2023 Natriuretic peptide B (Bld) [Mass/Vol] 29 pg/mL Normal 0 - 99 [facility] Comment on above: Result Comment: . <1 [...] By: #### B NP2 #### [facility] [address] [place] [address] CBC AND DIFFERENTIALon 02-06 % AUTOMATED IMMATURE GRAN 0.3 % Normal 0.0 - 0.9 [facility] Comment on above: Result Comment: Charo ture Granulocyte Count (IG) includes promyelocytes, myelocytes and metamyelocytes but does not include bands. Percent differential counts (%) should be interpreted in the context of the absolute cell counts (cells/L). Performed By: #### C BCDF #### [facility] [address] [place] [address] Basophils (Bld) [#/Vol] 0.03 10*3/uL Normal 0.00 - 0.1 0 [facility] Comment on above: Performed By: #### C BCDF #### [facility] [address] [place] [address] Basophils/100 WBC (Bld) 0.4 % Normal 0.0 - 2.0 U [facility] Comment on above: Performed By: #### C BCDF #### [facility] [address] [place] [address] Eosinophils (Bld) [#/Vol] 0.11 10*3/uL Normal 0.00 - 0.40 [facility] Comment on above: Performed By: #### C BCDF #### [facility] [address] [place] [address] Eosinophils/100 WBC (Bld) 1.6 % Normal 0.0 - 6.0 [facility] Comment on above: Performed By: #### C BCDF #### [facility] [address] [place] [address] Erythrocyte distribution width (RBC) [Ratio] 14.0 % Normal 11.5 - 14.5 [facility] Comment on above: Performed By: #### C BCDF #### [facility] [address] [place] [address] Hematocrit (Bld) [Volume fraction] 44.5 % Normal 36.0 - 46.0 [facility] Comment on above: Performed By: #### C BCDF #### [facility] [address] [place] [address] Hemoglobin (Bld) [Mass/Vol] 14.3 g/dL Normal 12.0 - 16.0 [facility] Comment on above: Performed By: #### C BCDF #### [facility] [address] [place] [address] Lymphocytes (Bld) [#/Vol] 1.71 10*3/uL Normal 0.80 - 3.00 [facility] Comment on above: Performed By: #### C BCDF #### [facility] [address] [place] [address] Lymphocytes/100 WBC (Bld) 24.3 % Normal 13.0 - 44.0 [facility] Comment on above: Performed By: #### C BCDF #### [facility] [address] [place] [address] MCHC (RBC) [Mass/Vol] 32.1 g/dL Normal 32.0 - 36.0 [facility] Comment on above: Performed By: #### C BCDF #### [facility] [address] [place] [address] MCV (RBC) [Entitic vol] 95 fL Normal 80 - 100 [facility] Comment on above: Performed By: #### C BCDF #### [facility] [address] [place] [address] Monocytes (Bld) [#/Vol] 0.61 10*3/uL Normal 0.05 - 0.8 0 [facility] Comment on above: Performed By: #### C BCDF #### [facility] [address] [place] [address] Monocytes/100 WBC (Bld) 8.7 % Normal 2.0 - 10.0 [facility] Comment on above: Performed By: #### C BCDF #### [facility] [address] [place] [address] Neutrophils (Bld) [#/Vol] 4.56 10*3/uL Normal 1.60 - 5.50 [facility] Comment on above: Performed By: #### C BCDF #### [facility] [address] [place] [address] Neutrophils/100 WBC (Bld) 64.7 % Normal 40.0 - 80.0 [facility] Comment on above: Performed By: #### C BCDF #### [facility] [address] [place] [address] NUCLEATED RBC 0.0 /100 WBC Normal 0.0-0.0 [facility] [place] Comment on above: Performed By: #### C BCDF #### [facility] [address] [place] [address] Platelets (Bld) [#/Vol] 243 10*3/uL Normal 150 - 450 [facility] Comment on above: Performed By: #### C BCDF #### [facility] [address] [place] [address] RBC 4.70 x10E12/L Normal 4.00 - 5.20 [facility] Comment on above: Performed By: #### C BCDF #### [facility] [address] [place] [address] WBC (Bld) [#/Vol] 7.0 10*3/uL Normal 4.4 - 11.3 [facility] Comment on above: Performed By: #### C BCDF #### [facility] [address] [place] [address] COMPREHENSIVE PANELon 2022 Albumin [Mass/Vol] 4.4 g/dL Normal 3.4 - 5.0 [facility] Comment on above: Performed By: #### T HYDS #### [facility] [address] [place] [address] ALP [Catalytic activity/Vol] 84 U/L Normal 33 - 136 [facility] Comment on above: Performed By: #### T HYDS #### [place] [address] [place] [address] ALT [Catalytic activity/Vol] 14 U/L Normal 7 - 45 [facility] Comment on above: Result Comment: Suzanne ents treated with Sulfasalazine may generate falsely decreased results for ALT. Performed By: #### T HYDS #### [facility] [address] [place] [address] Anion gap [Moles/Vol] 17 mmol/L Normal 10 - 20 [facility] Comment on above: Performed By: #### T HYDS #### [facility] [address] [place] [address] AST [Catalytic activity/Vol] 17 U/L Normal 9 - 39 [facility] Comment on above: Performed By: #### T HYDS #### [facility] [address] [place] [address] Bilirubin [Mass/Vol] 0.6 mg/dL Normal 0.0 - 1.2 [facility] [place] Comment on above: Performed By: #### T HYDS #### [facility] [address] [place] [address] Calcium [Mass/Vol] 9.3 mg/dL Normal 8.6 - 10.6 [facility] Comment on above: Performed By: #### T HYDS #### [facility] [address] [place] [address] Chloride [Moles/Vol] 104 mmol/L Normal 98 - 107 [facility] [place] Comment on above: Performed By: #### T HYDS #### [facility] [address] [place] [address] Creatinine [Mass/Vol] 0.69 mg/dL Normal 0.50 - 1.05 [facility] Comment on above: Performed By: #### T HYDS #### [facility] [address] [place] [address] GFR/1.73 sq M.predicted among non-blacks MDRD (S/P/Bld) [Vol rate/Area] 89 mL/min/{1.73_m2} Normal >90 [facility] Comment on above: Result Comment: CALC ULATIONS OF ESTIMATED GFR ARE PERFORMED USING THE 2020 CKD-EPI STUDY REFIT EQUATION WITHOUT THE RACE VARIABLE FOR THE IDMS-TRACEABLE CREATININE METHODS. https://jasn.asnjournals.org/content// 899380 Performed By: #### T HYDS #### [facility] [address] [place] [address] Glucose [Mass/Vol] 83 mg/dL Normal 74 - 99 [facility] Comment on above: Performed By: #### T HYDS #### [facility] [address] [place] [address] HCO3 (Bld) [Moles/Vol] 26 mmol/L Normal 21 - 32 [facility] Comment on above: Performed By: #### T HYDS #### [facility] [address] [place] [address] Potassium [Moles/Vol] 4.2 mmol/L Normal 3.5 - 5.3 [facility] Comment on above: Performed By: #### T HYDS #### [facility] [address] [place] [address] Protein [Mass/Vol] 7.0 g/dL Normal 6.4 - 8.2 [facility] Comment on above: Performed By: #### T HYDS #### [facility] [address] [place] [address] Sodium [Moles/Vol] 143 mmol/L Normal 136 - 145 [facility] Comment on above: Performed By: #### T HYDS #### [facility] [address] [place] [address] Urea nitrogen [Mass/Vol] 17 mg/dL Normal 6 - 23 [facility] Comment on above: Performed By: #### T HYDS #### [facility] [address] [place] [address] TSH WITH REFLEX TO FREE T4 I F ABNORMALon 02-06-2023 TSH Qn 2.70 m[IU]/L Normal 0.44 - 3.98 [facility] Comment on above: Result Comment: TSH testing is performed using different testing methodology at [facility] than at other [facility]. Direct result comparisons should only be made within the same method. Performed By: #### T HYDS #### [facility] [address] [place] [address] UA MICROSCOPICon 02-06-2023 Mucus Ql (Urine sed) 1+ /LPF Normal [facility] [place] Comment on above: Performed By: #### T HYDS #### [facility] [address] [place] [address] RBC 2 /HPF Normal 0-5 [facility] Comment on above: Performed By: #### T HYDS #### [facility] [address] [place] [address] SQUAMOUS EPITH. CELLS 3 /HPF Normal [facility] Comment on above: Performed By: #### T HYDS #### [facility] [address] [place] [address] WBC 6 /HPF Abnormal 0-5 [facility] Comment on above: Performed By: #### T HYDS #### [facility] [address] [place] [address] URINALYSISon 02-06-2023 Appearance (U) CLEAR Normal CLEAR [facility] Comment on above: Performed By: #### U A #### [facility] [address] [place] [address] Bilirubin Ql (U) Negative Normal NEGATIVE [facility] Comment on above: Performed By: #### U A #### [facility] [address] [place] [address] Color (U) YELLOW Normal STRAW,YELLO W [facility] Comment on above: Performed By: #### U A #### [facility] [address] [place] [address] Glucose Ql (U) Negative Normal NEGATIVE [facility] Comment on above: Performed By: #### U A #### [facility] [address] [place] [address] Hemoglobin Ql (U) Negative Normal NEGATIVE [facility] Comment on above: Performed By: #### U A #### [facility] [address] [place] [address] Ketones Ql (U) Negative Normal NEGATIVE [facility] Comment on above: Performed By: #### U A #### [facility] [address] [place], [place] Leukocyte esterase Test strip Ql (U) LARGE (3+) Abnormal NEGATIVE [facility] Comment on above: Performed By: #### U A #### [facility] [address] [place], [place] Nitrite Ql (U) Negative Normal NEGATIVE [facility] Comment on above: Performed By: #### U A #### [facility] [address] [place], [place] pH (U) 7.0 [pH] Normal 5.0 - 8.0 [facility] Comment on above: Performed By: #### U A #### [facility] [address] [place], [place] Protein Ql (U) Negative Normal NEGATIVE [facility] Comment on above: Performed By: #### U A #### [facility] [address] [place], [place] Specific gravity (U) [Rel density] 1.011 Normal 1.005 - 1.035 [facility] Comment on above: Performed By: #### U A #### [facility] [address] [place], [place] Urobilinogen (U) [Mass/Vol] mg/dL Normal 0.0 - 1.9 [facility] Comment on above: Performed By: #### U A #### [facility] [address] [place], [place] CBC AND DIFFERENTIALon 02-05 Lab Specimen Source Normal [facility] Comment on above: Performed By: #### C BCDF #### [facility] [address] [place] [address] Performed By: #### U A #### [facility] [address] [place], [place] Performed By: #### B NP2 #### [facility] [address] [place], [place] Performed By: #### T HYDS #### [facility] [address] [place], [place] LEE DIAGNOSTIC LEFTon 2022 [facility] US BIOPSY BREAST LEFTon 08-0 [facility] LEE JULIANG W SHIVA LEFTon 01-21 [facility] No Panel Informationon 01-21 [facility] Dermatopathologyon Dermatopathology Name MADIHA PERALES Pathologist: ARCHIE MORENO MD Date of Procedure: 10/30/2022 Date Received: 10/31/2022 Date Reported 11/01/2022 Submitting Physician: DARA SORENSEN DO Location: Other External # FINAL DIAGNOSIS SKIN, MID UPPER BACK, BIOPSY: INFLAMED SEBORRHEIC KERATOSIS, PRESENT ON THE DEEP AND PERIPHERAL MARGIN. Electronically Signed Out by ARCHIE MORENO M.D. Electronically Signed Out By ARCHIE MORENO MD/[facility] By the signature on this report, the individual or group listed as making the Final Interpretation/Diagno sis certifies that they have reviewed this case. Diagnostic interpretation performed at [facility] [address] [place] [address], [place] [address] Microscopic Description: Microscopic analysis shows a papillomatous [...] is a butler piece of skin measuring [id number]. The specimen is inked and embedded in toto. dcp/11/01/2022 [facility] [place] [id number] [address] Normal [facility] Comment on above: Performed By: #### T HYDS #### [address] [place] [address] Shaving Epidermal/Dermalon 0 10-30-2022 Dorian Alicea 10/30/2022 10:48 AM Shaving Epidermal/Dermal Date/Time: 10/30/2022 [...] The patient was given instructions for aftercare. [facility] Work Phone: [facility] Work Phone: UA MICROSCOPICon 07-18-2022 RBC None Normal 0-5 [facility] Comment on above: Performed By: #### U AMIC #### [facility] [address] [place] [address] WBC None Normal 0-5 [facility] Comment on above: Performed By: #### U AMIC #### [facility] [address] [place] [address] URINALYSISon 07-18-2022 Appearance (U) CLEAR Normal CLEAR [facility] Comment on above: Performed By: #### U A #### [facility] [address] [place] [address] Bilirubin Ql (U) Negative Normal NEGATIVE [facility] Comment on above: Performed By: #### U A #### [facility] [address] [place] [address] Color (U) YELLOW Normal STRAW,YELLO W [facility] Comment on above: Performed By: #### U A #### [facility] [address] [place] [address] Glucose Ql (U) Negative Normal NEGATIVE [facility] Comment on above: Performed By: #### U A #### [facility] [address] [place] [address] Hemoglobin Ql (U) TRACE Abnormal NEGATIVE [facility] Comment on above: Performed By: #### U A #### [facility] [address] [place] [address] Ketones Ql (U) Negative Normal NEGATIVE [facility] Comment on above: Performed By: #### U A #### [facility] [address] [place] [address] Leukocyte esterase Test strip Ql (U) Negative Normal NEGATIVE [facility] Comment on above: Performed By: #### U A #### [facility] [address] [place] [address] Nitrite Ql (U) Negative Normal NEGATIVE [facility] Comment on above: Performed By: #### U A #### [facility] [address] [place] [address] pH (U) 7.0 [pH] Normal 5.0 - 8.0 [facility] Comment on above: Performed By: #### U A #### [facility] [address] [place] [address] Protein Ql (U) Negative Normal NEGATIVE [facility] Comment on above: Performed By: #### U A #### [facility] [address] [place] [address] Specific gravity (U) [Rel density] 1.025 Normal 1.005 - 1.035 [facility] Comment on above: Performed By: #### U A #### [facility] [address] [place] [address] Urobilinogen (U) [Mass/Vol] mg/dL Normal 0.0 - 1.9 [facility] Comment on above: Performed By: #### U A #### [facility] [address] [place] [address] Urinalysison 07-18-2022 Color (U) YELLOW See Below [facility] Work Phone: Comment on above: Reference Range: STR AW,YELLOW Glucose Ql (U) Negative NEGATIVE [facility] Work Phone: Ketones Ql (U) Negative NEGATIVE [facility] Work Phone: Leukocyte esterase Test strip Ql (U) Negative NEGATIVE [facility] Work Phone: pH (U) 7.0 [pH] 5.0 - 8.0 [facility] Work Phone: Protein (U) [Mass/Vol] Negative NEGATIVE [facility] Work Phone: RBC (U) [#/Vol] TRACE Abnormal NEGATIVE [facility] Work Phone: Specific gravity (U) [Rel density] 1.[address] [facility] Work Phone: Comment on above: Reference Range: 1.0 05 - 1.035 Urinalysis Negative NEGATIVE [facility] Work Phone: Urinalysis <2.0 0.0 - 1.9 [facility] Work Phone: Urinalysis CLEAR CLEAR [facility] Work Phone: Urinalysis, Microscopicon Urinalysis, Microscopic None 0-5 M [facility] Work Phone: CBC AND DIFFERENTIALon 07-17 % AUTOMATED IMMATURE GRAN 0.5 % Normal 0.0 - 0.9 [facility] Comment on above: Result Comment: Charo ture Granulocyte Count (IG) includes promyelocytes, myelocytes and metamyelocytes but does not include bands. Percent differential counts (%) should be interpreted in the context of the absolute cell counts (cells/L). Performed By: #### C BCDF #### [facility] [address] [place] [address] Basophils (Bld) [#/Vol] 0.03 10*3/uL Normal 0.00 - 0.1 0 [facility] Comment on above: Performed By: #### C BCDF #### [facility] [address] [place] [address] Eosinophils (Bld) [#/Vol] 0.18 10*3/uL Normal 0.00 - 0.40 [facility] Comment on above: Performed By: #### C BCDF #### [facility] [address] [place] [address] Eosinophils/100 WBC (Bld) 2.8 % Normal 0.0 - 6.0 [facility] Comment on above: Performed By: #### C BCDF #### [facility] [address] [place] [address] Lymphocytes (Bld) [#/Vol] 1.45 10*3/uL Normal 0.80 - 3.00 [facility] Comment on above: Performed By: #### C BCDF #### [facility] [address] [place] [address] Monocytes (Bld) [#/Vol] 0.66 10*3/uL Normal 0.05 - 0.8 0 [facility] Comment on above: Performed By: #### C BCDF #### [facility] [address] [place] [address] Neutrophils (Bld) [#/Vol] 4.08 10*3/uL Normal 1.60 - 5.50 [facility] Comment on above: Performed By: #### C BCDF #### [facility] [address] [place] [address] NUCLEATED RBC 0.0 /100 WBC Normal 0.0-0.0 [facility] [place] Comment on above: Performed By: #### C BCDF #### [facility] [address] [place] [address] RBC 4.48 x10E12/L Normal 4.00 - 5.20 [facility] Comment on above: Performed By: #### C BCDF #### [facility] [address] [place] [address] COMPREHENSIVE PANELon 2022 Albumin [Mass/Vol] 4.0 g/dL Normal 3.4 - 5.0 [facility] Comment on above: Performed By: #### C MP #### [facility] [address] [place] [address] ALP [Catalytic activity/Vol] 89 U/L Normal 33 - 136 [facility] Work Phone: Comment on above: Performed By: #### C MP #### [facility] [address] [place] [address] ALT [Catalytic activity/Vol] 15 U/L Normal 7 - 45 [facility] Comment on above: Result Comment: Suzanne ents treated with Sulfasalazine may generate falsely decreased results for ALT. Performed By: #### C MP #### [facility] [address] [place] [address] Anion gap [Moles/Vol] 12 mmol/L Normal 10 - 20 [facility] Work Phone: Comment on above: Performed By: #### C MP #### [facility] [address] [place] [address] AST [Catalytic activity/Vol] 17 U/L Normal 9 - 39 [facility] Comment on above: Performed By: #### C MP #### [facility] [address] [place] [address] Bilirubin [Mass/Vol] 0.7 mg/dL Normal 0.0 - 1.2 [facility] Work Phone: Comment on above: Performed By: #### C MP #### [facility] [address] [place] [address] Calcium [Mass/Vol] 9.3 mg/dL Normal 8.6 - 10.6 [facility] Work Phone: Comment on above: Performed By: #### C MP #### [facility] [address] [place] [address] Chloride [Moles/Vol] 105 mmol/L Normal 98 - 107 [facility] Work Phone: Comment on above: Performed By: #### C MP #### [facility] [address] [place] [address] Creatinine [Mass/Vol] 0.66 mg/dL Normal 0.50 - 1.05 [facility] Work Phone: Comment on above: Reference Range: 0.5 0 - 1.05 Performed By: #### C MP #### [facility] [address] [place] [address] eGFR FEMALE >90 Normal >90 [facility] Comment on above: Result Comment: CALC ULATIONS OF ESTIMATED GFR ARE PERFORMED USING THE 2020 CKD-EPI STUDY REFIT EQUATION WITHOUT THE RACE VARIABLE FOR THE IDMS-TRACEABLE CREATININE METHODS. https://jasn.asnjournals.org/content/early//ASN.2020 571484 Performed By: #### C MP #### [facility] [address] [place] [address] Glucose [Mass/Vol] 78 mg/dL Normal 74 - 99 [facility] Work Phone: Comment on above: Performed By: #### C MP #### [facility] [address] [place] [address] HCO3 (Bld) [Moles/Vol] 31 mmol/L Normal 21 - 32 [facility] Comment on above: Performed By: #### C MP #### [facility] [address] [place] [address] Potassium [Moles/Vol] 4.2 mmol/L Normal 3.5 - 5.3 [facility] Work Phone: Comment on above: Performed By: #### C MP #### [facility] [address] [place] [address] Protein [Mass/Vol] 6.7 g/dL Normal 6.4 - 8.2 [facility] Work Phone: Comment on above: Performed By: #### C MP #### [facility] [address] [place] [address] Sodium [Moles/Vol] 144 mmol/L Normal 136 - 145 [facility] Work Phone: Comment on above: Performed By: #### C MP #### [facility] [address] [place] [address] Urea nitrogen [Mass/Vol] 15 mg/dL Normal 6 - 23 [facility] Work Phone: Comment on above: Performed By: #### C MP #### [place] [address] [place] [address] Complete Blood Count + Diffe yaneth 07-17-2022 Basophils/100 WBC (Bld) 0.5 % Normal 0.0 - 2.0 M [facility] Work Phone: Comment on above: Performed By: #### C BCDF #### [facility] [address] [place] [address] Erythrocyte distribution width (RBC) [Ratio] 14.1 % Normal 11.5 - 14.5 [facility] Work Phone: Comment on above: Reference Range: 11. 5 - 14.5 Performed By: #### C BCDF #### [facility] [address] [place] [address] Hematocrit (Bld) [Volume fraction] 42.8 % Normal 36.0 - 46.0 [facility] Work Phone: Comment on above: Reference Range: 36. 0 - 46.0 Performed By: #### C BCDF #### [facility] [address] [place] [address] Hemoglobin (Bld) [Mass/Vol] 13.5 g/dL Normal 12.0 - 16.0 [facility] Work Phone: Comment on above: Reference Range: 12. 0 - 16.0 Performed By: #### C BCDF #### [facility] [address] [place] [address] Lymphocytes/100 WBC (Bld) 22.6 % Normal 13.0 - 44.0 [facility] Work Phone: Comment on above: Reference Range: 13. 0 - 44.0 Performed By: #### C BCDF #### [facility] [address] [place] [address] MCHC (RBC) [Mass/Vol] 31.5 g/dL Low 32.0 - 36.0 [facility] Work Phone: Comment on above: Reference Range: 32. 0 - 36.0 Performed By: #### C BCDF #### [facility] [address] [place] [address] MCV (RBC) [Entitic vol] 96 fL Normal 80 - 100 M [facility] Work Phone: Comment on above: Performed By: #### C BCDF #### [facility] [address] [place] [address] Monocytes/100 WBC (Bld) 10.3 % Normal 2.0 - 10.0 M [facility] Work Phone: Comment on above: Performed By: #### C BCDF #### [facility] [address] [place] [address] Neutrophils/100 WBC (Bld) 63.3 % Normal 40.0 - 80.0 [facility] Work Phone: Comment on above: Reference Range: 40. 0 - 80.0 Performed By: #### C BCDF #### [facility] [address] [place] [address] Platelets (Bld) [#/Vol] 208 10*3/uL Normal 150 - 450 [facility] Work Phone: Comment on above: Performed By: #### C BCDF #### [facility] [address] [place] [address] WBC (Bld) [#/Vol] 6.4 10*3/uL Normal 4.4 - 11.3 [facility] Work Phone: Comment on above: Performed By: #### C BCDF #### [facility] [address] [place] [address] RBC (Bld) [#/Vol] 4.48 {x10E12/L} See Below [facility] Work Phone: Comment on above: Reference Range: 4.0 0 - 5.20 Complete Blood Count + Differential 0.03 {x10E9/L} See Below [facility] Work Phone: Comment on above: Reference Range: 0.0 0 - 0.10 Complete Blood Count + Differential 0.18 {x10E9/L} See Below [facility] Work Phone: Comment on above: Reference Range: 0.0 0 - 0.40 Complete Blood Count + Differential 0.66 {x10E9/L} See Below [facility] Work Phone: Comment on above: Reference Range: 0.0 5 - 0.80 Complete Blood Count + Differential 1.45 {x10E9/L} See Below [facility] Work Phone: Comment on above: Reference Range: 0.8 0 - 3.00 Complete Blood Count + Differential 4.08 {x10E9/L} See Below [facility] Work Phone: Comment on above: Reference Range: 1.6 0 - 5.50 Complete Blood Count + Differential 2.8 % 0.0 - 6.0 [facility] Work Phone: Complete Blood Count + Differential 0.5 % 0.0 - 0.9 [facility] Work Phone: Comment on above: Immature Granulocyte Count (IG) includes promyelocytes, myelocytes and metamyelocytes but does not include bands. Percent differential counts (%) should be interpreted in the context of the absolute cell counts (cells/L). Complete Blood Count + Differential 0.0 {/100_WBC} 0.0-0.0 [facility] Work Phone: LIPID PANEL (CORONARY RISK 2 )on 07-17-2022 Cholesterol in VLDL [Mass/Vol] 18 mg/dL Normal 0 - 40 [facility] Comment on above: Performed By: #### L IPID #### [facility] [address] [place] [address] Laboratory - Chemistry and C hemistry - challengeon 07-17-2022 Albumin BCP dye [Mass/Vol] 4.0 g/dL 3.4 - 5.0 [facility] Work Phone: ALT With P-5'-P [Catalytic activity/Vol] 15 U/L 7 - 45 [facility] Work Phone: Comment on above: Patients treated wit h Sulfasalazine may generate falsely decreased results for ALT. AST With P-5'-P [Catalytic activity/Vol] 17 U/L 9 - 39 [facility] Work Phone: CO2 [Moles/Vol] 31 mmol/L 21 - 32 [facility] Work Phone: Lipid Panelon 07-17-2022 Cholesterol [Mass/Vol] 151 mg/dL Normal 0 - 199 [facility] Work Phone: Comment on above: . AGE [...] dosing. Performed By: #### L IPID #### [facility] [address] [place] [address] Cholesterol in HDL [Mass/Vol] 52.6 mg/dL Normal [facility] Work Phone: Comment on [...] Performed By: #### L IPID #### [facility] [address] [place] [address] Cholesterol in LDL [Mass/Vol] 80 mg/dL Normal 0 - 99 [facility] Work Phone: Comment on [...] Performed By: #### L IPID #### [facility] [address] [place] [address] Cholesterol.total/[place] sterol in HDL [Mass ratio] 2.9 {ratio} Normal [facility] Work Phone: Comment on above: REF VALUESDESIRABLE < 3.4HIGH RISK > 5.0 Result Comment: REF VALUES DESIRABLE < 3.4 HIGH RISK > 5.0 Performed By: #### L IPID #### [facility] [address] [place] [address] Triglyceride [Mass/Vol] 90 mg/dL Normal 0 - 149 M [facility] Work Phone: Comment on above: . AGE DESIRABLE MILYD MESSI HIGH HIGH VERY HIGH 0 D-90 [...] Performed By: #### L IPID #### [facility] [address] [place] [address] Lipid Panel 18 mg/dL 0 - 40 [facility] Work Phone: No Panel Informationon 07-17 >90 >90 [facility] Work Phone: Comment on above: CALCULATIONS OF MATEO MATED GFR ARE PERFORMED USING THE 2020 CKD-EPI STUDY REFIT EQUATION WITHOUT THE RACE VARIABLE FOR THE IDMS-TRACEABLE CREATININE METHODS.https://jasn.asnjournals.org/content// ASN.9146748861 Not at all - 0 [facility] Work Phone: Several days - 1 [facility] Work Phone: Minimal Anxiety [facility] Work Phone: Not difficult at all [facility] SERVICES[facility] bush [facility] Work Phone: Comment on above: How difficult have t hose problems made it for you to do your work, take care of things at home, or get along with other people? 1 1 [facility] Work Phone: Comment on above: Over the [...] PHQ-9on 07-17-2022 Adult depression screening assessment No [facility] Work Phone: Adult depression screening assessment Yes [facility] Work Phone: PHQ-9 0-Not at all [facility] Work Phone: PHQ-9 Large [facility] Work Phone: TSH WITH REFLEX TO FREE T4 I F ABNORMALon 07-17-2022 TSH Qn 2.65 m[IU]/L Normal 0.44 - 3.98 [facility] Work Phone: Comment on above: Reference Range: 0.4 4 - 3.98 TSH testing is performed using different testing methodology at [facility] than at other [facility]. Direct result comparisons should only be made within the same method. Result Comment: TSH testing is performed using different testing methodology at [facility] than at other [facility]. Direct result comparisons should only be made within the same method. Performed By: #### T HYDS #### [facility] [address] [place] [address] URINALYSISon 07-17-2022 ASCORBIC ACID Canceled Normal [facility] Comment on above: Order Comment: TEST URINALYSIS [...] By: #### U A #### [facility] [address] [place] [address] Bilirubin Ql (U) Canceled Normal [facility] Comment on above: Order Comment: TEST URINALYSIS WAS CANCELLED, 07/17/2022 08:36 pt to return w sample. Performed By: #### U A #### [facility] [address] [place] [address] Hemoglobin Ql (U) Canceled Normal [facility] Comment on above: Order Comment: TEST URINALYSIS WAS CANCELLED, 07/17/2022 08:36 pt to return w sample. Performed By: #### U A #### [facility] [address] [place] [address] Nitrite Ql (U) Canceled Normal [facility] Comment on above: Order Comment: TEST URINALYSIS WAS CANCELLED, 07/17/2022 08:36 pt to return w sample. Performed By: #### U A #### [facility] [address] [place] [address] pH Canceled Normal [facility] Comment on above: Order Comment: TEST URINALYSIS WAS CANCELLED, 07/17/2022 08:36 pt to return w sample. Performed By: #### U A #### [facility] [address] [place] [address] Protein Ql (U) Canceled Normal [facility] Comment on above: Order Comment: TEST URINALYSIS WAS CANCELLED, 07/17/2022 08:36 pt to return w sample. Performed By: #### U A #### [facility] [address] [place] [address] UROBILINOGEN Canceled Normal [facility] Comment on above: Order Comment: TEST URINALYSIS WAS CANCELLED, 07/17/2022 08:36 pt to return w sample. Performed By: #### U A #### [facility] [address] [place] [address] Urinalysison 07-17-2022 Appearance (U) Canceled Normal [facility] Work Phone: Comment on above: Order Comment: TEST URINALYSIS WAS CANCELLED, 07/17/2022 08:36 pt to return w sample. Performed By: #### U A #### [facility] [address] [place] [address] Color (U) Canceled Normal [facility] Work Phone: Comment on above: Order Comment: TEST URINALYSIS WAS CANCELLED, 07/17/2022 08:36 pt to return w sample. Performed By: #### U A #### [facility] [address] [place] [address] Glucose Ql (U) Canceled Normal [facility] Work Phone: Comment on above: Order Comment: TEST URINALYSIS WAS CANCELLED, 07/17/2022 08:36 pt to return w sample. Performed By: #### U A #### [facility] [address] [place] [address] Ketones Ql (U) Canceled Normal [facility] Work Phone: Comment on above: Order Comment: TEST URINALYSIS WAS CANCELLED, 07/17/2022 08:36 pt to return w sample. Performed By: #### U A #### [facility] [address] [place] [address] Leukocyte esterase Test strip Ql (U) Canceled Normal [facility] Work Phone: Comment on above: Order Comment: TEST URINALYSIS WAS CANCELLED, 07/17/2022 08:36 pt to return w sample. Performed By: #### U A #### [facility] [address] [place] [address] Specific gravity (U) [Rel density] Canceled Normal [facility] Work Phone: Comment on above: Order Comment: TEST URINALYSIS WAS CANCELLED, 07/17/2022 08:36 pt to return w sample. Performed By: #### U A #### [facility] [address] [place] [address] Protein (U) [Mass/Vol] Canceled [facility] Work Phone: RBC (U) [#/Vol] Canceled [facility] Work Phone: Urinalysis Canceled [facility] Work Phone: Comment on above: Concentrations > = 2 0 mg/dL of ascorbic acid can be expected to cause strong interference in the reactions testing for glucose, nitrite and blood. It is recommended to discontinue Vitamin C administration and retest in 10 hours. Blood Pressure Cuff Sizeon 0 01-10-2022 Adult depression screening assessment No [facility] Work Phone: Blood Pressure Cuff Size Large [facility] Work Phone: No Panel Informationon 01-10 Not at all - 0 [facility] Work Phone: Minimal Anxiety [facility] Work Phone: [address] 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 [...] June, all reassuring. 'Scores and Scales' PHQ-9 [id number] 07:39AM PHQ-9 Depression Severity PHQ-9 #1. Little [...] problem list based on total score)4 CLIFTON-7 [id number] CLIFTON-7 Total Score0 Feeling nervous, anxious or [...] Breast Surger (more content not included)... Normal [facility] LEE SCREENINGon 09-21-2021 [facility] Radiologyon 09-21-2021 MG Breast Screening * * *Final Report* * * DATE OF EXAM: Sep 21 2021 8:28AM [facility] 0581 - [facility] SCREENING / PROCEDURE REASON: Z12.31 MAMMOGRAM SCREENING * * * * Physician Interpretation * * * * #[id number] - [facility] SCREENING BILATERAL DIGITA Normal [facility] Work Phone: Blood Pressure Cuff Sizeon 0 07-12-2021 Blood Pressure Cuff Size Adult [facility] Work Phone: Laboratory - Chemistry and C hemistry - challengeon 07-12-2021 Albumin BCP dye [Mass/Vol] 4.1 g/dL 3.4 - 5.0 [facility] Work Phone: ALP [Catalytic activity/Vol] 80 U/L 33 - 136 [facility] Work Phone: ALT With P-5'-P [Catalytic activity/Vol] 13 U/L 7 - 45 [facility] Work Phone: Comment on above: Patients treated wit h Sulfasalazine may generate falsely decreased results for ALT. Anion gap [Moles/Vol] 12 mmol/L 10 - 20 [facility] Work Phone: AST With P-5'-P [Catalytic activity/Vol] 15 U/L 9 - 39 [facility] Work Phone: Bilirubin [Mass/Vol] 0.6 mg/dL 0.0 - 1.2 [facility] Work Phone: Calcium [Mass/Vol] 9.0 mg/dL 8.6 - 10.6 [facility] Work Phone: Chloride [Moles/Vol] 105 mmol/L 98 - 107 [facility] Work Phone: CO2 [Moles/Vol] 31 mmol/L 21 - 32 [facility] Work Phone: Creatinine [Mass/Vol] 0.63 mg/dL See Below [facility] Work Phone: Comment on above: Reference Range: 0.5 0 - 1.05 Glucose [Mass/Vol] 85 mg/dL 74 - 99 [facility] Work Phone: Potassium [Moles/Vol] 4.1 mmol/L 3.5 - 5.3 [facility] Work Phone: Protein [Mass/Vol] 6.6 g/dL 6.4 - 8.2 [facility] Work Phone: Sodium [Moles/Vol] 144 mmol/L 136 - 145 [facility] Work Phone: Urea nitrogen [Mass/Vol] 18 mg/dL 6 - 23 [facility] Work Phone: Medicare Annual Wellness Vis basia 07-12-2021 Medicare Annual Wellness Visit *Chief Complaint Medicare Wellness, fasting, high dose flu shot , brochure given, consent signed Follow up depression/anxiety Influenza Vaccine No to all questions Patient answered all questions prior to immunization 1: Have you ever had Guillain-[place] syndrome? (a viral illness resulting in neurological [...] above in HPI. 'Scores and Scales' PHQ-9 [id number] 07:[id number] 06:50AM PHQ-9 Depression Severity IO PHQ2 PHQ-9 [...] History Histor (more content not included)... Normal [facility] No Panel Informationon 07-12 >[address] [facility] Work Phone: Comment on above: CALCULATIONS OF MATEO MATED GFR ARE PERFORMED USING THE 2020 CKD-EPI STUDY REFIT EQUATION WITHOUT THE RACE VARIABLE FOR THE IDMS-TRACEABLE CREATININE METHODS.https://jasn.asnjournals.org/content// ASN.5824795687 PHQ-9on 07-12-2021 PHQ-9 1-Several days [facility] Work Phone: PHQ-9 0-Not at all [facility] Work Phone: PHQ-9 Not difficult at all [facility] Work Phone: Blood Pressure Cuff Sizeon 0 01-10-2021 Blood Pressure Cuff Size Large [facility] Work Phone: Otheron 08-15-2020 MG Breast screening * * *Final Report* * *DATE OF EXAM: Aug 15 2020 10:11AM MAGO 0581 - [facility] SCREENING / REASON: Z12. SCREENING * * * * Physician Interpretation * * * * #[id number] - LEE SCREENINGBILATERAL DIGITAL SCREENING MAMMOGRAM WITH CAD: 08/15/2020HISTORY: Z12.31 Screening / Screening Mammogram-Patient reports NO symptoms.RESULT:TECHN IQUE: The study was acquired using full field digital technology and interpreted from soft copy.Current study was also evaluated with a Computer Aided Detection (CAD).Comparison is made to exams dated: 08/13/2019 mammogram, 06/25/2018 mammogram, and 06/06/2017 mammogram - [place]. There are scattered fibroglandular elements in both breasts.There are benign post operative findings in the left breast.No significant masses, calcifications, or other findings are seen in either breast.There has been no significant interval change.IMPRESSION: BENIGN FINDINGThere is no mammographic evidence of malignancy. A 1 year screening mammogram is recommended.Marcos Aguilar/gris:08/15/19 11:03:31Imaging Technologist(s): RT Dori(R)(M), [place]: Normal over 40Mammogram BI-RADS: 2 Benign [...] Health, Family Medicine, and Medical/Surgical Oncology, the [facility] has carefully reviewed the data [...] with their providers when to stop screening mammograms.Transcript ionist: GrisTranscribsam Date/Time: Aug 15 2020 9:59ADictated by : MARCOS CAO MDThis examination was interpreted and the report reviewed and electronically signed by: MARCOS CAO MD on Aug 15 2020 11:03AM [id number]\\S\\AGFA_I DC Normal [facility] Work Phone: Comment on above: Ordering Provider: Dorian Devi Antithyroid Perox. Abon 12-21 TPO Ab Qn [IU]/mL [facility] Work Phone: Comment on above: Negative: <=60 U/mLP ositive: >60 U/mL T3 - Free Triiodothyronine, Serumon 01-06-2020 Free T3 [Mass/Vol] 2.8 pg/mL 2.3 - 4.2 [facility] Work Phone: T4 - Free Thyroxine, Serumon 01-06-2020 Free T4 [Mass/Vol] 0.85 ng/dL See Below [facility] Work Phone: Comment on above: Reference Range: 0.7 8 - 1.48 Thyroxine Free testing is performed using different testing methodology at [facility] than at other [facility]. Direct result comparisons should only be made within the same method. TSH - Thyroid Stimulating Ho rmone, Serumon 01-06-2020 TSH Qn 4.54 {mIU/L} above high threshold See Below [facility] Work Phone: Comment on above: Reference Range: 0.4 4 - 3.98 TSH testing is performed using different testing methodology at [facility] than at other [facility]. Direct result comparisons should only be made within the same method. Vital Signs Date Time Vital Sign Value Performing Clinician Facility 01-03-2025 10:36-0400 Body mass index (BMI) [Ratio] 33.25 kg/m2 Sara Ramey APRN.GRANT ADMINISTRATOR Work Phone: [facility] 01-03-2025 10:36-0400 Body weight 93.44 kg Sara Ramey APRN.ANALI Work Phone: [facility] 01-03-2025 10:36-0400 Diastolic blood pressure 71 mm[Hg] Sara Hollaender NET WEB APPLICATION DEVELOPER.GRANT ADMINISTRATOR Work Phone: [facility] 01-03-2025 10:36-0400 Heart rate 76 /min Sara Colbyaender NET WEB APPLICATION DEVELOPER.GRANT ADMINISTRATOR Work Phone: [facility] 01-03-2025 10:36-0400 Respiratory rate 16 /min Sara Hollaender NET WEB APPLICATION DEVELOPER.GRANT ADMINISTRATOR Work Phone: [facility] 01-03-2025 10:36-0400 Systolic blood pressure 103 mm[Hg] Sara Hollaender NET WEB APPLICATION DEVELOPER.GRANT ADMINISTRATOR Work Phone: [facility] 09-17-2024 14:10-0400 Body height 165.1 cm Leonardo Stanec DO Work Phone: [facility] 09-17-2024 14:10-0400 Body mass index (BMI) [Ratio] 34.5 kg/m2 Leonardo Stanec DO Work Phone: [facility] 09-17-2024 14:10-0400 Body temperature 98.01 [degF] Leonardo Stanec DO Work Phone: [facility] 09-17-2024 14:10-0400 Body weight 94.03 kg Leonardo Stanec DO Work Phone: [facility] 09-17-2024 14:10-0400 Diastolic blood pressure 73 mm[Hg] Leonardo Stanec DO Work Phone: [facility] 09-17-2024 14:10-0400 Heart rate 73 /min Leonardo Stanec DO Work Phone: [facility] 09-17-2024 14:10-0400 SaO2% (BldA) [Mass fraction] 94 % Leonardo Stanec DO Work Phone: [facility] 09-17-2024 14:10-0400 Systolic blood pressure 109 mm[Hg] Leonardo Stanec DO Work Phone: [facility] 08-10-2024 09:28-0500 Body height 165.1 cm Stevie Fanny DO Work Phone: [employer] 08-10-2024 09:28-0500 Body mass index (BMI) [Ratio] 34.1 kg/m2 Stevie Fanny DO Work Phone: [facility] 08-10-2024 09:28-0500 Body temperature 98.91 [degF] Stevie Fanny DO Work Phone: [facility] [employer] 08-10-2024 09:28-0500 Body weight 92.94 kg Stevie Fanny DO Work Phone: [facility] [employer] 08-10-2024 09:28-0500 Diastolic blood pressure 59 mm[Hg] Stevie Fanny DO Work Phone: [facility] 08-10-2024 09:28-0500 Heart rate 76 /min Stevie Fanny DO Work Phone: [facility] [employer] 08-10-2024 09:28-0500 SaO2% (BldA) [Mass fraction] 97 % Stevie Fanny DO Work Phone: [employer] 08-10-2024 09:28-0500 Systolic blood pressure 105 mm[Hg] Stevie Fanny DO Work Phone: [employer] 03-16-2024 13:57-0400 Body height 165.1 cm Stevie Fanny DO Work Phone: [employer] 03-16-2024 13:57-0400 Body mass index (BMI) [Ratio] 33.46 kg/m2 Stevie Fanny DO Work Phone: [employer] 03-16-2024 13:57-0400 Body temperature 97.7 [degF] Stevie Fanny DO Work Phone: [employer] 03-16-2024 13:57-0400 Body weight 91.22 kg Stevie Fanny DO Work Phone: [facility] [employer] 03-16-2024 13:57-0400 Diastolic blood pressure 82 mm[Hg] Stevie Fanny DO Work Phone: [facility] [employer] 03-16-2024 13:57-0400 Heart rate 82 /min Stevie Fanny DO Work Phone: [facility] [employer] 03-16-2024 13:57-0400 Respiratory rate 20 /min Stevie Fanny DO Work Phone: [facility] [employer] 03-16-2024 13:57-0400 SaO2% (BldA) [Mass fraction] 96 % Stevie Fanny DO Work Phone: [facility] [employer] 03-16-2024 13:57-0400 Systolic blood pressure 127 mm[Hg] Stevie Fanny DO Work Phone: [facility] [employer] 02-19-2024 09:13-0400 Body height 165.1 cm Torrie Choi MD Work Phone: [facility] 02-19-2024 09:13-0400 Body mass index (BMI) [Ratio] 34.45 kg/m2 Torrie Choi MD Work Phone: [facility] 02-19-2024 09:13-0400 Body weight 93.89 kg Torrie Choi MD Work Phone: [facility] 02-19-2024 09:13-0400 Diastolic blood pressure 84 mm[Hg] Torrie Choi MD Work Phone: [facility] 02-19-2024 09:13-0400 Heart rate 79 /min Torrie Choi MD Work Phone: [facility] 02-19-2024 09:13-0400 SaO2% (BldA) [Mass fraction] 97 % Torrie Choi MD Work Phone: [facility] 02-19-2024 09:13-0400 Systolic blood pressure 124 mm[Hg] Torrie Choi MD Work Phone: [facility] 02-18-2024 06:38-0400 Body mass index (BMI) [Ratio] 34.61 kg/m2 Marie Devi MD Work Phone: [facility] 02-18-2024 06:38-0400 Body temperature 98.1 [degF] Marie Devi MD Work Phone: [facility] 02-18-2024 06:38-0400 Body weight 94.35 kg Marie Devi MD Work Phone: [facility] 02-18-2024 06:38-0400 Diastolic blood pressure 71 mm[Hg] Marie Devi MD Work Phone: [facility] 02-18-2024 06:38-0400 Heart rate 72 /min Marie Devi MD Work Phone: [facility] 02-18-2024 06:38-0400 SaO2% (BldA) [Mass fraction] 91 % Marie Devi MD Work Phone: [facility] 02-18-2024 06:38-0400 Systolic blood pressure 109 mm[Hg] Marie Devi MD Work Phone: [facility] 02-03-2024 09:30-0400 Body mass index (BMI) [Ratio] 36.17 kg/m2 Stevie Fanny DO Work Phone: [facility] [employer] 02-03-2024 09:30-0400 Body temperature 98.4 [degF] Stevie Fanny DO Work Phone: [employer] 02-03-2024 09:30-0400 Body weight 95.57 kg Stevie Fanny DO Work Phone: [facility] [employer] 02-03-2024 09:30-0400 Diastolic blood pressure 63 mm[Hg] Stevie Fanny DO Work Phone: [facility] [employer] 02-03-2024 09:30-0400 Heart rate 80 /min Stevie Fanyn DO Work Phone: [employer] 02-03-2024 09:30-0400 Respiratory rate 18 /min Stevie Fanny DO Work Phone: [facility] [employer] 02-03-2024 09:30-0400 SaO2% (BldA) [Mass fraction] 94 % Stevie Fanny DO Work Phone: [facility] [employer] 02-03-2024 09:30-0400 Systolic blood pressure 124 mm[Hg] Stevie Fanny DO Work Phone: [facility] [employer] 11-11-2023 14:36-0400 Body mass index (BMI) [Ratio] 34.46 kg/m2 Marie Devi MD Work Phone: [facility] 11-11-2023 14:36-0400 Body temperature 98.49 [degF] Marie Devi MD Work Phone: [facility] 11-11-2023 14:36-0400 Body weight 93.94 kg Marie Devi MD Work Phone: [facility] 11-11-2023 14:36-0400 Diastolic blood pressure 77 mm[Hg] Marie Devi MD Work Phone: [facility] 11-11-2023 14:36-0400 Heart rate 82 /min Marie Devi MD Work Phone: [facility] 11-11-2023 14:36-0400 SaO2% (BldA) [Mass fraction] 93 % Marie Devi MD Work Phone: [facility] 11-11-2023 14:36-0400 Systolic blood pressure 130 mm[Hg] Marie Devi MD Work Phone: [facility] 11-04-2023 09:43-0400 Body height 162.6 cm Stevie Fanny DO Work Phone: [facility] [employer] 11-04-2023 09:43-0400 Body mass index (BMI) [Ratio] 34.67 kg/m2 Stevie Fanny DO Work Phone: [facility] [employer] 11-04-2023 09:43-0400 Body temperature 99 [degF] Stevie Schumacherel DO Work Phone: [facility] [employer] 11-04-2023 09:43-0400 Body weight 91.63 kg Stevie Schumacherel DO Work Phone: [facility] [employer] 11-04-2023 09:43-0400 Diastolic blood pressure 71 mm[Hg] Stevie Fanny DO Work Phone: [facility] [employer] 11-04-2023 09:43-0400 Heart rate 81 /min Stevie Schumacherel DO Work Phone: [facility] [employer] 11-04-2023 09:43-0400 SaO2% (BldA) [Mass fraction] 93 % Stevie Escobedo DO Work Phone: [facility] [employer] 11-04-2023 09:43-0400 Systolic blood pressure 117 mm[Hg] Stevie Schumacherel DO Work Phone: [facility] [employer] 09-23-2023 10:12-0400 Body temperature 98.2 [degF] Chair 3 [facility] [employer] 09-23-2023 10:12-0400 Diastolic blood pressure 74 mm[Hg] Chair 3 [facility] [employer] 09-23-2023 10:12-0400 Heart rate 72 /min Chair 3 [facility] [employer] 09-23-2023 10:12-0400 Respiratory rate 20 /min Chair 3 [facility] [employer] 09-23-2023 10:12-0400 SaO2% (BldA) [Mass fraction] 95 % Chair 3 [facility] [employer] 09-23-2023 10:12-0400 Systolic blood pressure 125 mm[Hg] Chair 3 [facility] [employer] 09-23-2023 08:06-0400 Body mass index (BMI) [Ratio] 35.58 kg/m2 Chair 3 [facility] [employer] 09-23-2023 08:06-0400 Body weight 94.03 kg Chair 3 [facility] [employer] 09-18-2023 09:44-0400 Body height 162.6 cm Stevie Fanny DO Work Phone: [facility] [employer] 09-18-2023 09:44-0400 Body mass index (BMI) [Ratio] 35.87 kg/m2 Stevie Fanny DO Work Phone: [facility] [employer] 09-18-2023 09:44-0400 Body weight 94.8 kg Stevie Fanny DO Work Phone: [facility] [employer] 09-12-2023 13:17-0400 Body height 162.6 cm Vicki Diego MD Work Phone: [facility] [employer] 09-12-2023 13:17-0400 Body mass index (BMI) [Ratio] 35.91 kg/m2 Vicki Diego MD Work Phone: [facility] [employer] 09-12-2023 13:17-0400 Body temperature 96.91 [degF] Vicki Diego MD Work Phone: [facility] [employer] 09-12-2023 13:17-0400 Body weight 94.89 kg Vicki Diego MD Work Phone: [facility] [employer] 09-12-2023 13:17-0400 Diastolic blood pressure 80 mm[Hg] Vicki Diego MD Work Phone: [facility] [employer] 09-12-2023 13:17-0400 Heart rate 94 /min Vicki Diego MD Work Phone: [facility] [employer] 09-12-2023 13:17-0400 Respiratory rate 16 /min Vicki Diego MD Work Phone: [facility] [employer] 09-12-2023 13:17-0400 SaO2% (BldA) [Mass fraction] 96 % Vicki Diego MD Work Phone: [facility] [employer] 09-12-2023 13:17-0400 Systolic blood pressure 138 mm[Hg] Vicki Diego MD Work Phone: [facility] [employer] 09-02-2023 11:28-0400 Body temperature 97.81 [degF] Chair 5 [facility] [employer] 09-02-2023 11:28-0400 Diastolic blood pressure 75 mm[Hg] Chair 5 [facility] 09-02-2023 11:28-0400 Heart rate 77 /min Chair 5 [facility] 09-02-2023 11:28-0400 Respiratory rate 14 /min Chair 5 [facility] 09-02-2023 11:28-0400 SaO2% (BldA) [Mass fraction] 94 % Chair 5 [facility] 09-02-2023 11:28-0400 Systolic blood pressure 124 mm[Hg] Chair 5 [facility] [employer] 09-02-2023 08:51-0400 Body height 165.1 cm Stevie Fanny DO Work Phone: [facility] [employer] 09-02-2023 08:51-0400 Body mass index (BMI) [Ratio] 34.56 kg/m2 Stevie Fanny DO Work Phone: [facility] [employer] 09-02-2023 08:51-0400 Body temperature 97.81 [degF] Stevie Fanny DO Work Phone: [facility] [employer] 09-02-2023 08:51-0400 Body weight 94.21 kg Stevie Fanny DO Work Phone: [facility] [employer] 09-02-2023 08:51-0400 Diastolic blood pressure 71 mm[Hg] Stevie Fanny DO Work Phone: [facility] [employer] 09-02-2023 08:51-0400 Heart rate 89 /min Stevie Fanny DO Work Phone: [facility] [employer] 09-02-2023 08:51-0400 SaO2% (BldA) [Mass fraction] 91 % Stevie Fanny DO Work Phone: [facility] [employer] 09-02-2023 08:51-0400 Systolic blood pressure 125 mm[Hg] Stevie Fanny DO Work Phone: [facility] [employer] 09-02-2023 08:50-0400 Body mass index (BMI) [Ratio] 34.56 kg/m2 Chair 5 [facility] 09-02-2023 08:50-0400 Body weight 94.21 kg Chair 5 [facility] 08-12-2023 10:38-0500 Body temperature 98.29 [degF] Chair 1 [facility] 08-12-2023 10:38-0500 Diastolic blood pressure 87 mm[Hg] Chair 1 [facility] 08-12-2023 10:38-0500 Heart rate 73 /min Chair 1 [facility] 08-12-2023 10:38-0500 Respiratory rate 20 /min Chair 1 [facility] 08-12-2023 10:38-0500 SaO2% (BldA) [Mass fraction] 94 % Chair 1 [facility] 08-12-2023 10:38-0500 Systolic blood pressure 106 mm[Hg] Chair 1 [facility] 08-12-2023 08:09-0500 Body mass index (BMI) [Ratio] 34.21 kg/m2 Chair 1 [facility] 08-12-2023 08:09-0500 Body weight 93.26 kg Chair 1 [facility] 08-05-2023 11:11-0500 Body temperature 98.8 [degF] Chair 1 [facility] 08-05-2023 11:11-0500 Diastolic blood pressure 75 mm[Hg] Chair 1 [facility] 08-05-2023 11:11-0500 Heart rate 91 /min Chair 1 [facility] 08-05-2023 11:11-0500 SaO2% (BldA) [Mass fraction] 93 % Chair 1 [facility] 08-05-2023 11:11-0500 Systolic blood pressure 138 mm[Hg] Chair 1 [facility] 08-05-2023 09:00-0500 Body mass index (BMI) [Ratio] 33.73 kg/m2 Chair 1 [facility] 08-05-2023 09:00-0500 Body weight 91.94 kg Chair 1 [facility] 08-05-2023 09:00-0500 Respiratory rate 18 /min Chair 1 [facility] 07-30-2023 06:49-0500 Body height 165.1 cm Marie Devi MD Work Phone: [facility] 07-30-2023 06:49-0500 Body mass index (BMI) [Ratio] 34.41 kg/m2 Marie Devi MD Work Phone: [facility] 07-30-2023 06:49-0500 Body temperature 97.5 [degF] Marie Devi MD Work Phone: [facility] 07-30-2023 06:49-0500 Body weight 93.8 kg Marie Devi MD Work Phone: [facility] 07-30-2023 06:49-0500 Diastolic blood pressure 72 mm[Hg] Marie Devi MD Work Phone: [facility] 07-30-2023 06:49-0500 Heart rate 86 /min Marie Devi MD Work Phone: [facility] 07-30-2023 06:49-0500 SaO2% (BldA) [Mass fraction] 94 % Marie Devi MD Work Phone: [facility] 07-30-2023 06:49-0500 Systolic blood pressure 108 mm[Hg] Marie Devi MD Work Phone: [facility] 07-15-2023 12:37-0500 Body temperature 97.3 [degF] Chair 5 [facility] [employer] 07-15-2023 12:37-0500 Diastolic blood pressure 81 mm[Hg] Chair 5 [facility] [employer] 07-15-2023 12:37-0500 Heart rate 77 /min Chair 5 [facility] [employer] 07-15-2023 12:37-0500 Respiratory rate 16 /min Chair 5 [facility] [employer] 07-15-2023 12:37-0500 SaO2% (BldA) [Mass fraction] 92 % Chair 5 [facility] [employer] 07-15-2023 12:37-0500 Systolic blood pressure 140 mm[Hg] Chair 5 [facility] [employer] 07-15-2023 10:27-0500 Body mass index (BMI) [Ratio] 33.95 kg/m2 Chair 5 [facility] [employer] 07-15-2023 10:27-0500 Body weight 92.53 kg Chair 5 [facility] [employer] 07-15-2023 10:09-0500 Body height 165.1 cm Stevie Escobedo DO Work Phone: [employer] 07-15-2023 10:09-0500 Body mass index (BMI) [Ratio] 33.95 kg/m2 Stevie Fanny DO Work Phone: [employer] 07-15-2023 10:09-0500 Body temperature 97.59 [degF] Stevie Fanny DO Work Phone: [employer] 07-15-2023 10:09-0500 Body weight 92.53 kg Stevie Fanny DO Work Phone: [employer] 07-15-2023 10:09-0500 Diastolic blood pressure 78 mm[Hg] Stevie Fanny DO Work Phone: [employer] 07-15-2023 10:09-0500 Heart rate 95 /min Stevie Fanny DO Work Phone: [employer] 07-15-2023 10:09-0500 SaO2% (BldA) [Mass fraction] 93 % Stevie Fanny DO Work Phone: [employer] 07-15-2023 10:09-0500 Systolic blood pressure 135 mm[Hg] Stevie Fanny DO Work Phone: [employer] 07-03-2023 10:27-0500 Body height 165.1 cm Vicki Diego MD Work Phone: [employer] 07-03-2023 10:27-0500 Body mass index (BMI) [Ratio] 33.22 kg/m2 Vicki Diego MD Work Phone: [employer] 07-03-2023 10:27-0500 Body temperature 97.7 [degF] Vicki Diego MD Work Phone: [employer] 07-03-2023 10:27-0500 Body weight 90.54 kg Vicki Diego MD Work Phone: [employer] 07-03-2023 10:27-0500 Diastolic blood pressure 87 mm[Hg] Vicki Diego MD Work Phone: [facility] [employer] 07-03-2023 10:27-0500 Heart rate 84 /min Vicki Diego MD Work Phone: [facility] [employer] 07-03-2023 10:27-0500 Respiratory rate 20 /min Vicki Diego MD Work Phone: [facility] [employer] 07-03-2023 10:27-0500 SaO2% (BldA) [Mass fraction] 97 % Vicki Diego MD Work Phone: [facility] [employer] 07-03-2023 10:27-0500 Systolic blood pressure 135 mm[Hg] Vicki Diego MD Work Phone: [facility] [employer] 06-26-2023 14:47-0500 Body mass index (BMI) [Ratio] 33.3 kg/m2 Marie Devi MD Work Phone: [facility] 06-26-2023 14:47-0500 Body temperature 99 [degF] Marie Devi MD Work Phone: [facility] 06-26-2023 14:47-0500 Body weight 90.77 kg Marie Devi MD Work Phone: [facility] 06-26-2023 14:47-0500 Diastolic blood pressure 72 mm[Hg] Marie Devi MD Work Phone: [facility] 06-26-2023 14:47-0500 Heart rate 85 /min Marie Devi MD Work Phone: [facility] 06-26-2023 14:47-0500 Respiratory rate 16 /min Marie Devi MD Work Phone: [facility] 06-26-2023 14:47-0500 SaO2% (BldA) [Mass fraction] 92 % Marie Devi MD Work Phone: [facility] 06-26-2023 14:47-0500 Systolic blood pressure 111 mm[Hg] Marie Devi MD Work Phone: [facility] 06-24-2023 12:20-0500 Body temperature 96.4 [degF] Chair 1 [facility] [employer] 06-24-2023 12:20-0500 Diastolic blood pressure 75 mm[Hg] Chair 1 [facility] [employer] 06-24-2023 12:20-0500 Heart rate 79 /min Chair 1 [facility] 06-24-2023 12:20-0500 Respiratory rate 14 /min Chair 1 [facility] [employer] 06-24-2023 12:20-0500 SaO2% (BldA) [Mass fraction] 93 % Chair 1 [facility] [employer] 06-24-2023 12:20-0500 Systolic blood pressure 129 mm[Hg] Chair 1 [facility] [employer] 06-24-2023 08:03-0500 Body height 165.1 cm Stevie Fanny DO Work Phone: [facility] [employer] 06-24-2023 08:03-0500 Body mass index (BMI) [Ratio] 33.45 kg/m2 Stevie Fanny DO Work Phone: [facility] [employer] 06-24-2023 08:03-0500 Body temperature 98.49 [degF] Stevie Fanny DO Work Phone: [facility] [employer] 06-24-2023 08:03-0500 Body weight 91.17 kg Stevie Fanny DO Work Phone: [facility] [employer] 06-24-2023 08:03-0500 Diastolic blood pressure 76 mm[Hg] Stevie Fanny DO Work Phone: [facility] [employer] 06-24-2023 08:03-0500 Heart rate 93 /min Stevie Fanny DO Work Phone: [facility] [employer] 06-24-2023 08:03-0500 SaO2% (BldA) [Mass fraction] 93 % Stevie Fanny DO Work Phone: [facility] [employer] 06-24-2023 08:03-0500 Systolic blood pressure 121 mm[Hg] Stevie Fanny DO Work Phone: [facility] [employer] 06-24-2023 08:01-0500 Body mass index (BMI) [Ratio] 33.45 kg/m2 Chair 1 [facility] 06-24-2023 08:01-0500 Body weight 91.17 kg Chair 1 [facility] 06-13-2023 10:12-0500 Body temperature 97.9 [degF] Chair 3 [facility] 06-13-2023 10:12-0500 Diastolic blood pressure 78 mm[Hg] Chair 3 [facility] 06-13-2023 10:12-0500 Systolic blood pressure 110 mm[Hg] Chair 3 [facility] 06-13-2023 08:40-0500 Heart rate 93 /min Chair 3 [facility] 06-13-2023 08:40-0500 Respiratory rate 16 /min Chair 3 [facility] 06-13-2023 08:40-0500 SaO2% (BldA) [Mass fraction] 92 % Chair 3 [facility] 06-03-2023 14:43-0500 Body temperature 97 [degF] Chair 5 [facility] 06-03-2023 14:43-0500 Diastolic blood pressure 71 mm[Hg] Chair 5 [facility] 06-03-2023 14:43-0500 Heart rate 78 /min Chair 5 [facility] 06-03-2023 14:43-0500 Respiratory rate 18 /min Chair 5 [facility] 06-03-2023 14:43-0500 SaO2% (BldA) [Mass fraction] 93 % Chair 5 [facility] 06-03-2023 14:43-0500 Systolic blood pressure 113 mm[Hg] Chair 5 [facility] 06-03-2023 10:11-0500 Body height 165.1 cm Stevie Fanny DO Work Phone: [facility] [employer] 06-03-2023 10:11-0500 Body temperature 97.5 [degF] Stevie Fanny DO Work Phone: [facility] [employer] 06-03-2023 10:11-0500 Diastolic blood pressure 58 mm[Hg] Stevie Fanny DO Work Phone: [facility] [employer] 06-03-2023 10:11-0500 Heart rate 101 /min Stevie Fanny DO Work Phone: [facility] 06-03-2023 10:11-0500 SaO2% (BldA) [Mass fraction] 95 % Stevie Escobedo DO Work Phone: [facility] 06-03-2023 10:11-0500 Systolic blood pressure 86 mm[Hg] Stevie Escobedo DO Work Phone: [facility] 05-27-2023 15:26-0500 Body temperature 99.7 [degF] Chair 3 [facility] 05-27-2023 15:26-0500 Diastolic blood pressure 56 mm[Hg] Chair 3 [facility] 05-27-2023 15:26-0500 Heart rate 86 /min Chair 3 [facility] 05-27-2023 15:26-0500 Respiratory rate 18 /min Chair 3 [facility] 05-27-2023 15:26-0500 SaO2% (BldA) [Mass fraction] 91 % Chair 3 [facility] 05-27-2023 15:26-0500 Systolic blood pressure 107 mm[Hg] Chair 3 [facility] 05-27-2023 10:39-0500 Body height 165.1 cm Chair 3 [facility] 05-27-2023 10:39-0500 Body mass index (BMI) [Ratio] 33.36 kg/m2 Chair 3 [facility] 05-27-2023 10:39-0500 Body weight 90.95 kg Chair 3 [facility] 05-23-2023 10:59-0500 Diastolic blood pressure 70 mm[Hg] Chair 4 [facility] 05-23-2023 10:59-0500 Heart rate 87 /min Chair 4 [facility] 05-23-2023 10:59-0500 SaO2% (BldA) [Mass fraction] 91 % Chair 4 [facility] 05-23-2023 10:59-0500 Systolic blood pressure 125 mm[Hg] Chair 4 [facility] 05-23-2023 08:45-0500 Body mass index (BMI) [Ratio] 33.9 kg/m2 Chair 4 [facility] 05-23-2023 08:45-0500 Body temperature 97.7 [degF] Chair 4 [facility] 05-23-2023 08:45-0500 Body weight 92.4 kg Chair 4 [facility] [employer] 05-23-2023 08:45-0500 Respiratory rate 20 /min Chair 4 [facility] 05-20-2023 13:16-0500 Body temperature 98.1 [degF] Bed 1 [facility] 05-20-2023 13:16-0500 Diastolic blood pressure 70 mm[Hg] Bed 1 [facility] 05-20-2023 13:16-0500 Heart rate 75 /min Bed 1 [facility] 05-20-2023 13:16-0500 SaO2% (BldA) [Mass fraction] 94 % Bed 1 [facility] 05-20-2023 13:16-0500 Systolic blood pressure 134 mm[Hg] Bed 1 [facility] 05-20-2023 08:48-0500 Body height 165.1 cm Stevie Fanny DO Work Phone: [facility] 05-20-2023 08:48-0500 Body mass index (BMI) [Ratio] 33.41 kg/m2 Stevie Fanny DO Work Phone: [facility] 05-20-2023 08:48-0500 Body temperature 98.01 [degF] Stevie Fanny DO Work Phone: [facility] [employer] 05-20-2023 08:48-0500 Body weight 91.08 kg Stevie Fanny DO Work Phone: [facility] 05-20-2023 08:48-0500 Diastolic blood pressure 68 mm[Hg] Stevie Fanny DO Work Phone: [facility] 05-20-2023 08:48-0500 Heart rate 85 /min Stevie Fanny DO Work Phone: [facility] [employer] 05-20-2023 08:48-0500 SaO2% (BldA) [Mass fraction] 95 % Stevie Fanny DO Work Phone: [facility] 05-20-2023 08:48-0500 Systolic blood pressure 106 mm[Hg] Stevie Fanny DO Work Phone: [facility] 05-20-2023 08:43-0500 Body mass index (BMI) [Ratio] 33.36 kg/m2 Bed 1 [facility] 05-20-2023 08:43-0500 Body weight 90.95 kg Bed 1 [facility] 05-20-2023 08:43-0500 Respiratory rate 16 /min Bed 1 [facility] 05-13-2023 12:58-0500 Body temperature 98.71 [degF] Chair 5 [facility] 05-13-2023 12:58-0500 Diastolic blood pressure 71 mm[Hg] Chair 5 [facility] 05-13-2023 12:58-0500 Heart rate 78 /min Chair 5 [facility] 05-13-2023 12:58-0500 Respiratory rate 16 /min Chair 5 [facility] 05-13-2023 12:58-0500 SaO2% (BldA) [Mass fraction] 94 % Chair 5 [facility] 05-13-2023 12:58-0500 Systolic blood pressure 120 mm[Hg] Chair 5 [facility] 05-13-2023 08:40-0500 Body mass index (BMI) [Ratio] 33.78 kg/m2 Chair 5 [facility] 05-13-2023 08:40-0500 Body weight 92.08 kg Chair 5 [facility] 05-06-2023 13:06-0500 Body temperature 98.2 [degF] Chair 5 [facility] 05-06-2023 13:06-0500 Diastolic blood pressure 74 mm[Hg] Chair 5 [facility] 05-06-2023 13:06-0500 Heart rate 70 /min Chair 5 [facility] 05-06-2023 13:06-0500 Respiratory rate 12 /min Chair 5 [facility] 05-06-2023 13:06-0500 SaO2% (BldA) [Mass fraction] 92 % Chair 5 [facility] 05-06-2023 13:06-0500 Systolic blood pressure 136 mm[Hg] Chair 5 [facility] 05-06-2023 08:44-0500 Body height 165.1 cm [employer] Phone: [facility] [employer] 05-06-2023 08:44-0500 Body mass index (BMI) [Ratio] 34.25 kg/m2 Stevie Fanny DO Work Phone: [facility] [employer] 05-06-2023 08:44-0500 Body temperature 97 [degF] Stevie Fanny DO Work Phone: [facility] [employer] 05-06-2023 08:44-0500 Body weight 93.35 kg Stevie Fanny DO Work Phone: [facility] [employer] 05-06-2023 08:44-0500 Diastolic blood pressure 71 mm[Hg] Stevie Fanny DO Work Phone: [facility] [employer] 05-06-2023 08:44-0500 Heart rate 77 /min Stevie Fanny DO Work Phone: [facility] [employer] 05-06-2023 08:44-0500 SaO2% (BldA) [Mass fraction] 96 % Stevie Schulteebel DO Work Phone: [facility] 05-06-2023 08:44-0500 Systolic blood pressure 113 mm[Hg] Stevie Fanny DO Work Phone: [facility] 05-06-2023 08:43-0500 Body mass index (BMI) [Ratio] 34.25 kg/m2 Chair 5 [facility] 05-06-2023 08:43-0500 Body weight 93.35 kg Chair 5 [facility] 04-29-2023 13:56-0500 Body temperature 97.5 [degF] Chair 4 [facility] 04-29-2023 13:56-0500 Diastolic blood pressure 84 mm[Hg] Chair 4 [facility] 04-29-2023 13:56-0500 Heart rate 84 /min Chair 4 [facility] 04-29-2023 13:56-0500 Respiratory rate 20 /min Chair 4 [facility] 04-29-2023 13:56-0500 SaO2% (BldA) [Mass fraction] 94 % Chair 4 [facility] 04-29-2023 13:56-0500 Systolic blood pressure 132 mm[Hg] Chair 4 [facility] 04-29-2023 10:04-0500 Body mass index (BMI) [Ratio] 33.9 kg/m2 Chair 4 [facility] 04-29-2023 10:04-0500 Body weight 92.4 kg Chair 4 [facility] 04-22-2023 12:25-0400 Body temperature 97.3 [degF] Chair 6 [facility] 04-22-2023 12:25-0400 Diastolic blood pressure 76 mm[Hg] Chair 6 [facility] 04-22-2023 12:25-0400 Heart rate 75 /min Chair 6 [facility] 04-22-2023 12:25-0400 Respiratory rate 14 /min Chair 6 [facility] 04-22-2023 12:25-0400 SaO2% (BldA) [Mass fraction] 98 % Chair 6 [facility] 04-22-2023 12:25-0400 Systolic blood pressure 130 mm[Hg] Chair 6 [facility] 04-22-2023 08:12-0400 Body height 165.1 cm Stevie Fanny DO Work Phone: [facility] [employer] 04-22-2023 08:12-0400 Body mass index (BMI) [Ratio] 34.18 kg/m2 Stevie Fanny DO Work Phone: [facility] [employer] 04-22-2023 08:12-0400 Body temperature 98.01 [degF] Stevie Fanny DO Work Phone: [facility] [employer] 04-22-2023 08:12-0400 Body weight 93.17 kg Stevie Fanny DO Work Phone: [facility] [employer] 04-22-2023 08:12-0400 Diastolic blood pressure 83 mm[Hg] Stevie Fanny DO Work Phone: [facility] 04-22-2023 08:12-0400 Heart rate 79 /min Stevie Fanny DO Work Phone: [facility] 04-22-2023 08:12-0400 SaO2% (BldA) [Mass fraction] 93 % Stevie Fanny DO Work Phone: [facility] [employer] 04-22-2023 08:12-0400 Systolic blood pressure 139 mm[Hg] Stevie Fanny DO Work Phone: [facility] [employer] 04-08-2023 13:50-0400 Body temperature 97.5 [degF] Chair 6 [facility] [employer] 04-08-2023 13:50-0400 Diastolic blood pressure 71 mm[Hg] Chair 6 [facility] 04-08-2023 13:50-0400 Heart rate 72 /min Chair 6 [facility] [employer] 04-08-2023 13:50-0400 Respiratory rate 18 /min Chair 6 [facility] 04-08-2023 13:50-0400 Systolic blood pressure 128 mm[Hg] Chair 6 [facility] [employer] 04-08-2023 09:59-0400 Body height 165.1 cm Stevie Fanny DO Work Phone: [facility] [employer] 04-08-2023 09:59-0400 Body mass index (BMI) [Ratio] 33.86 kg/m2 Stevie Fanny DO Work Phone: [facility] [employer] 04-08-2023 09:59-0400 Body temperature 98.4 [degF] Stevie Fanny DO Work Phone: [facility] [employer] 04-08-2023 09:59-0400 Body weight 92.31 kg Stevie Fanny DO Work Phone: [facility] [employer] 04-08-2023 09:59-0400 Diastolic blood pressure 64 mm[Hg] Stevie Fanny DO Work Phone: [facility] [employer] 04-08-2023 09:59-0400 Heart rate 74 /min Stevie Fanny DO Work Phone: [facility] [employer] 04-08-2023 09:59-0400 SaO2% (BldA) [Mass fraction] 98 % Stevie Fanny DO Work Phone: [facility] [employer] 04-08-2023 09:59-0400 Systolic blood pressure 127 mm[Hg] Stevie Fanny DO Work Phone: [facility] 04-08-2023 09:56-0400 Body mass index (BMI) [Ratio] 33.86 kg/m2 Chair 6 [facility] 04-08-2023 09:56-0400 Body weight 92.31 kg Chair 6 [facility] 04-08-2023 09:56-0400 SaO2% (BldA) [Mass fraction] 98 % Chair 6 [facility] 04-01-2023 13:44-0400 Body temperature 98.01 [degF] Chair 3 [facility] 04-01-2023 13:44-0400 Diastolic blood pressure 81 mm[Hg] Chair 3 [facility] 04-01-2023 13:44-0400 Heart rate 70 /min Chair 3 [facility] 04-01-2023 13:44-0400 Respiratory rate 16 /min Chair 3 [facility] 04-01-2023 13:44-0400 SaO2% (BldA) [Mass fraction] 91 % Chair 3 [facility] 04-01-2023 13:44-0400 Systolic blood pressure 130 mm[Hg] Chair 3 [facility] 04-01-2023 08:02-0400 Body mass index (BMI) [Ratio] 34.11 kg/m2 Chair 3 [facility] 04-01-2023 08:02-0400 Body weight 92.99 kg Chair 3 [facility] 03-26-2023 14:30-0400 Body height 165.1 cm [employer] DO Work Phone: [facility] [employer] 03-26-2023 14:30-0400 Body mass index (BMI) [Ratio] 33.78 kg/m2 Stevie Fanny DO Work Phone: [facility] [employer] 03-26-2023 14:30-0400 Body weight 92.08 kg Stevie Fanny DO Work Phone: [facility] [employer] 03-18-2023 13:35-0400 Body height 165.1 cm Stevie Fanny DO Work Phone: [facility] [employer] 03-18-2023 13:35-0400 Body mass index (BMI) [Ratio] 33.86 kg/m2 Stevie Fanny DO Work Phone: [facility] [employer] 03-18-2023 13:35-0400 Body temperature 98.1 [degF] Stevie Fanny DO Work Phone: [facility] [employer] 03-18-2023 13:35-0400 Body weight 92.31 kg Stevie Fanny DO Work Phone: [facility] [employer] 03-18-2023 13:35-0400 Diastolic blood pressure 83 mm[Hg] Stevie Fanny DO Work Phone: [facility] [employer] 03-18-2023 13:35-0400 Heart rate 77 /min Stevie Fanny DO Work Phone: [facility] 03-18-2023 13:35-0400 SaO2% (BldA) [Mass fraction] 97 % Stevie Fanny DO Work Phone: [facility] [employer] 03-18-2023 13:35-0400 Systolic blood pressure 140 mm[Hg] Stevie Fanny DO Work Phone: [facility] [employer] 03-06-2023 13:21-0400 Body height 165.1 cm Vicki Diego MD Work Phone: [facility] [employer] 03-06-2023 13:21-0400 Body mass index (BMI) [Ratio] 33.66 kg/m2 Vicki Diego MD Work Phone: [facility] [employer] 03-06-2023 13:21-0400 Body temperature 97.11 [degF] Vicki Diego MD Work Phone: [facility] [employer] 03-06-2023 13:21-0400 Body weight 91.76 kg Vicki Diego MD Work Phone: [facility] 03-06-2023 13:21-0400 Diastolic blood pressure 90 mm[Hg] Vicki Diego MD Work Phone: [facility] [employer] 03-06-2023 13:21-0400 Heart rate 77 /min Vicki Diego MD Work Phone: [facility] [employer] 03-06-2023 13:21-0400 Respiratory rate 20 /min Vicki Diego MD Work Phone: [facility] [employer] 03-06-2023 13:21-0400 SaO2% (BldA) [Mass fraction] 97 % Vicki Diego MD Work Phone: [facility] 03-06-2023 13:21-0400 Systolic blood pressure 140 mm[Hg] Vicki Diego MD Work Phone: [facility] 02-12-2023 15:27-0400 Body mass index (BMI) [Ratio] 34.11 kg/m2 Marie Devi MD Work Phone: [facility] 02-12-2023 15:27-0400 Body temperature 97.39 [degF] Marie Devi MD Work Phone: [facility] 02-12-2023 15:27-0400 Body weight 92.99 kg Marie Devi MD Work Phone: [facility] 02-12-2023 15:27-0400 Diastolic blood pressure 75 mm[Hg] Marie Devi MD Work Phone: [facility] 02-12-2023 15:27-0400 Heart rate 71 /min Marie Devi MD Work Phone: [facility] 02-12-2023 15:27-0400 Respiratory rate 16 /min Marie Devi MD Work Phone: [facility] 02-12-2023 15:27-0400 Systolic blood pressure 122 mm[Hg] Marie Devi MD Work Phone: [facility] 02-05-2023 07:51-0400 Body height 166.4 cm Pacc 2 Work Phone: [facility] 02-05-2023 07:51-0400 Body temperature 97.11 [degF] Pacc 2 Work Phone: [facility] 02-05-2023 07:51-0400 Body weight 93.44 kg Pacc 2 Work Phone: [facility] 02-05-2023 07:51-0400 Diastolic blood pressure 69 mm[Hg] Pacc 2 Work Phone: [facility] 02-05-2023 07:51-0400 Heart rate 76 /min Pacc 2 Work Phone: [facility] 02-05-2023 07:51-0400 Respiratory rate 16 /min Pacc 2 Work Phone: [facility] 02-05-2023 07:51-0400 SaO2% (BldA) [Mass fraction] 97 % Pacc 2 Work Phone: [facility] 02-05-2023 07:51-0400 Systolic blood pressure 126 mm[Hg] Pacc 2 Work Phone: [facility] 02-03-2023 14:21-0400 Body height 165.1 cm Torrie Choi MD Work Phone: [facility] 02-03-2023 14:21-0400 Body weight 92.08 kg Torrie Choi MD Work Phone: [facility] 02-03-2023 14:21-0400 Diastolic blood pressure 83 mm[Hg] Torrie Choi MD Work Phone: [facility] 02-03-2023 14:21-0400 Heart rate 74 /min Torrie Choi MD Work Phone: [facility] 02-03-2023 14:21-0400 Systolic blood pressure 128 mm[Hg] Torrie Choi MD Work Phone: [facility] 01-23-2023 06:35-0400 Body mass index (BMI) [Ratio] 34.38 kg/m2 Marie Devi MD Work Phone: [facility] 01-23-2023 06:35-0400 Body temperature 96.91 [degF] Marie Devi MD Work Phone: [facility] 01-23-2023 06:35-0400 Body weight 93.71 kg Marie Devi MD Work Phone: [facility] 01-23-2023 06:35-0400 Diastolic blood pressure 73 mm[Hg] Marie Devi MD Work Phone: [facility] 01-23-2023 06:35-0400 Heart rate 68 /min Marie Devi MD Work Phone: [facility] 01-23-2023 06:35-0400 Respiratory rate 16 /min Marie Devi MD Work Phone: [facility] 01-23-2023 06:35-0400 SaO2% (BldA) [Mass fraction] 97 % Marie Devi MD Work Phone: [facility] 01-23-2023 06:35-0400 Systolic blood pressure 115 mm[Hg] Marie Devi MD Work Phone: [facility] 10-30-2022 10:06-0400 Body mass index (BMI) [Ratio] 32.78 kg/m2 Dara Mesko DO Work Phone: [facility] 10-30-2022 10:06-0400 Body temperature 97.9 [degF] Dara Mesko DO Work Phone: [facility] 10-30-2022 10:06-0400 Body weight 89.36 kg Dara Mesko DO Work Phone: [facility] 10-30-2022 10:06-0400 Diastolic blood pressure 66 mm[Hg] Dara Mesko DO Work Phone: [facility] 10-30-2022 10:06-0400 Heart rate 73 /min Dara Mesko DO Work Phone: [facility] 10-30-2022 10:06-0400 Respiratory rate 14 /min Dara Mesko DO Work Phone: [facility] 10-30-2022 10:06-0400 SaO2% (BldA) [Mass fraction] 97 % Dara Mesko DO Work Phone: [facility] 10-30-2022 10:06-0400 Systolic blood pressure 100 mm[Hg] Dara Mesko DO Work Phone: [facility] 10-24-2022 14:36-0400 Body mass index (BMI) [Ratio] 32.92 kg/m2 Dara Mesko DO Work Phone: [facility] 10-24-2022 14:36-0400 Body temperature 98.01 [degF] Dara Mesko DO Work Phone: [facility] 10-24-2022 14:36-0400 Body weight 89.72 kg Dara Mesko DO Work Phone: [facility] 10-24-2022 14:36-0400 Diastolic blood pressure 72 mm[Hg] Dara Mesko DO Work Phone: [facility] 10-24-2022 14:36-0400 Heart rate 85 /min Dara Mesko DO Work Phone: [facility] 10-24-2022 14:36-0400 Respiratory rate 16 /min Dara Mesko DO Work Phone: [facility] 10-24-2022 14:36-0400 SaO2% (BldA) [Mass fraction] 98 % Dara Mesko DO Work Phone: [facility] 10-24-2022 14:36-0400 Systolic blood pressure 126 mm[Hg] Dara Mesko DO Work Phone: [facility] 07-17-2022 06:57-0500 Body height 165.1 cm Marie Devi Work Phone: [facility] Work Phone: 07-17-2022 06:57-0500 Body mass index (BMI) [Ratio] 32.53 kg/m2 Marie Devi Work Phone: [facility] Work Phone: 07-17-2022 06:57-0500 Body surface area Derived from formula 1.96 m2 Marie Devi Work Phone: [facility] Work Phone: 07-17-2022 06:57-0500 Body temperature 97.8 [degF] Marie Douglasle Work Phone: [facility] Work Phone: 07-17-2022 06:57-0500 Body weight 88.68 kg Marie Devi Work Phone: [facility] Work Phone: 07-17-2022 06:57-0500 Diastolic blood pressure 68 mm[Hg] Marie Douglasle Work Phone: [facility] Work Phone: 07-17-2022 06:57-0500 Heart rate 67 /min Marie Douglasle Work Phone: [facility] Work Phone: 07-17-2022 06:57-0500 Respiratory rate 12 /min Marie Devi Work Phone: [facility] Work Phone: 07-17-2022 06:57-0500 SaO2% (BldA) [Mass fraction] 95 % Marie Devi Work Phone: [facility] Work Phone: 07-17-2022 06:57-0500 Systolic blood pressure 104 mm[Hg] Marie Stanley Dulle Work Phone: [facility] Work Phone: 01-10-2022 06:33-0400 Body mass index (BMI) [Ratio] 33.28 kg/m2 Maire Douglasle Work Phone: [facility] Work Phone: 01-10-2022 06:33-0400 Body surface area Derived from formula 1.98 m2 Marie Devi Work Phone: [facility] Work Phone: 01-10-2022 06:33-0400 Body temperature 98.1 [degF] Marie Douglasle Work Phone: [facility] Work Phone: 01-10-2022 06:33-0400 Body weight 90.72 kg Marie Devi Work Phone: [facility] Work Phone: 01-10-2022 06:33-0400 Diastolic blood pressure 69 mm[Hg] Marie Devi Work Phone: [facility] Work Phone: 01-10-2022 06:33-0400 Heart rate 71 /min Marie Douglasle Work Phone: [facility] Work Phone: 01-10-2022 06:33-0400 Respiratory rate 12 /min Marie Devi Work Phone: [facility] Work Phone: 01-10-2022 06:33-0400 SaO2% (BldA) [Mass fraction] 96 % Marie Devi Work Phone: [facility] Work Phone: 01-10-2022 06:33-0400 Systolic blood pressure 103 mm[Hg] Marie Devi Work Phone: [facility] Work Phone: 07-12-2021 07:39-0500 4 1 Marie Stanley Dulle Work Phone: [facility] Work Phone: Comment on above: PHQ-9 TS 07-12-2021 06:47-0500 Body height 165.1 cm Marie Stanley Dulle Work Phone: [facility] Work Phone: 07-12-2021 06:47-0500 Body mass index (BMI) [Ratio] 32.62 kg/m2 Marie Devi Work Phone: [facility] Work Phone: 07-12-2021 06:47-0500 Body surface area Derived from formula 1.96 m2 Marie Devi Work Phone: [facility] Work Phone: 07-12-2021 06:47-0500 Body temperature 98 [degF] Marie Devi Work Phone: [facility] Work Phone: 07-12-2021 06:47-0500 Body weight 88.91 kg Marie Devi Work Phone: [facility] Work Phone: 07-12-2021 06:47-0500 Diastolic blood pressure 69 mm[Hg] Marie Devi Work Phone: [facility] Work Phone: 07-12-2021 06:47-0500 Heart rate 71 /min Marie Devi Work Phone: [facility] Work Phone: 07-12-2021 06:47-0500 Respiratory rate 12 /min Marie Douglasle Work Phone: [facility] Work Phone: 07-12-2021 06:47-0500 SaO2% (BldA) [Mass fraction] 95 % Marie Stanley Dulle Work Phone: [facility] Work Phone: 07-12-2021 06:47-0500 Systolic blood pressure 108 mm[Hg] Marie Stanley Dulle Work Phone: [facility] Work Phone: 01-10-2021 06:45-0400 Body mass index (BMI) [Ratio] 32.95 kg/m2 Sebastián Dulle Work Phone: [facility] Work Phone: 01-10-2021 06:45-0400 Body surface area Derived from formula 1.95 m2 Marie Devi Work Phone: [facility] Work Phone: 01-10-2021 06:45-0400 Body temperature 96.2 [degF] Marie Devi Work Phone: [facility] Work Phone: 01-10-2021 06:45-0400 Body weight 88.45 kg Marie Devi Work Phone: [facility] Work Phone: 01-10-2021 06:45-0400 Diastolic blood pressure 71 mm[Hg] Marie Stanley Duldina Work Phone: [facility] Work Phone: 01-10-2021 06:45-0400 Heart rate 73 /min Marie Devi Work Phone: [facility] Work Phone: 01-10-2021 06:45-0400 Respiratory rate 12 /min Marie Stanley Duldina Work Phone: [facility] Work Phone: 01-10-2021 06:45-0400 SaO2% (BldA) [Mass fraction] 96 % Marie Devi Work Phone: [facility] Work Phone: 01-10-2021 06:45-0400 Systolic blood pressure 105 mm[Hg] Marie Devi Work Phone: [facility] Work Phone: 01-06-2020 08:40-0400 Body Temperature 97.7 [degF] Marie Devi [facility] Work Phone: Comment on above: Method: Temporal 01-06-2020 08:40-0400 BP Diastolic 71 mm[Hg] Marie Devi [facility] Work Phone: Comment on above: Location: RUE; Position: Sitting 01-06-2020 08:40-0400 BP Systolic 110 mm[Hg] Marie Douglasle [facility] Work Phone: Comment on above: Location: RUE; Position: Sitting 01-06-2020 08:40-0400 Pulse (Heart Rate) 72 /min Marie Devi [facility] Work Phone: 01-06-2020 08:40-0400 Pulse Oximetry 95 % [facility] Work Phone: 01-06-2020 08:40-0400 Respiratory Rate 12 /min Marie Devi [facility] Work Phone: 01-06-2020 08:37-0400 BMI (Body Mass Index) 30.42 kg/m2 [facility] Work Phone: 01-06-2020 08:37-0400 Body weight 81.65 kg [facility] Work Phone: 01-06-2020 08:37-0400 BSA (Body Surface Area) 1.88 m2 Marie Devi [facility] Work Phone: Encounters Encounter Date Encounter Type Care Provider Facility Start: 01-07-2025 End: 01-07-2025 Telephone encounter Sara Ramey APRN.[employer]ANT ADMINISTRATOR Work Phone: [facility] Comment on above: Patient Update Start: 01-03-2025 End: 01-03-2025 Patient encounter procedure Sara Ramey APRN.[employer] ADMINISTRATOR Work Phone: Cerebrovascular Comment on above: Transient confusion (Primary Dx); Abnormal MRI of head; History of cerebral hemorrhage; Silent micro-hemorrhage of brain (HCC); Abnormal EEG; Cervicogenic headache Start: 01-03-2025 End: 01-03-2025 ambulatory SARA RAMEY Facility:[facility] Start: 12-14-2024 ambulatory [facility] Facility:[facility] Start: 12-13-2024 ambulatory Azam Leticia Santo ty:[facility] Start: 12-03-2024 End: 12-10-2024 Evaluation and management of inpatient SHAW KINSEY Facility:[place] Start: 09-17-2024 End: 09-17-2024 Patient encounter procedure [facility] DO Work Phone: [facility] Comment on above: Medicare annual well ness visit, subsequent (Primary Dx); Depression with anxiety; Elevated TSH; Parkinson's disease without dyskinesia or fluctuating manifestations; Vitamin D deficiency; Do not resuscitate Start: 09-17-2024 End: 09-17-2024 ambulatory [facility] Start: 08-10-2024 End: 08-10-2024 Office outpatient visit 15 minutes Stevie E Fanny DO Work Phone: [facility] Comment on above: Malignant neoplasm o f upper-outer quadrant of left breast in female, estrogen receptor positive (HCC) (Primary Dx) Start: 08-10-2024 End: 08-10-[address] [facility] Start: 07-31-2024 End: 08-03-2024 Refill Stevie E Fanny DO Work Phone: [facility] Comment on above: Malignant neoplasm o f upper-outer quadrant of left breast in female, estrogen receptor positive (HCC) Start: 03-25-2024 ambulatory MARIE DEVI Facility: [place] Start: 03-25-2024 End: 03-25-2024 Subsequent hospital visit by physician Screen/Diagnostic Mammo 1 [facility] Work Phone: Mammography Comment on above: Visit for screening mammogram [Z12.31] Start: 03-16-2024 End: 03-16-2024 Office outpatient visit 15 minutes Stevie E Fanny DO Work Phone: [facility] Radiation Oncology [facility] Comment on above: Malignant neoplasm o f upper-outer quadrant of left breast in female, estrogen receptor positive (HCC) (Primary Dx) Start: 03-16-2024 End: 03-16-2024 ambulatory [facility] Start: 02-19-2024 End: 02-19-2024 ambulatory [facility] Facility:[facility] Start: 02-19-2024 End: 02-19-2024 Patient encounter procedure Torrie Choi MD Work Phone: General Surgery Comment on above: Malignant neoplasm o f upper-outer quadrant of left breast in female, estrogen receptor positive (HCC) (Primary Dx) Start: 02-18-2024 End: 02-18-2024 Office outpatient visit 25 minutes Marie Devi MD Work Phone: [facility] Comment on above: Parkinsonism, unspec ified Parkinsonism type (Multi) (Primary Dx); Malignant neoplasm of right female breast, unspecified estrogen receptor status, unspecified site of breast (Multi); Depression with anxiety; Elevated TSH; Obesity (BMI 30.0-34.9); Other specified depressive episodes Start: 02-18-2024 End: 02-18-2024 ambulatory [facility] Start: 02-03-2024 End: 02-03-2024 Refill Stevie Escobedo DO Work Phone: [facility] Comment on above: Malignant neoplasm o f upper-outer quadrant of left breast in female, estrogen receptor positive (HCC) Patient Question Start: 02-03-2024 End: 02-03-2024 Office outpatient visit 25 minutes Stevie Escobedo DO Work Phone: [facility] Comment on above: Malignant neoplasm o f upper-outer quadrant of left breast in female, estrogen receptor positive (HCC) (Primary Dx) Start: 11-11-2023 End: 11-11-2023 Office outpatient visit 25 minutes Marie Devi MD Work Phone: [facility] Comment on above: 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) (Primary Dx); Parkinsonism, unspecified Parkinsonism type (Multi); Depression with anxiety; Pneumonia due to COVID-19 virus; Malignant neoplasm of right female breast, unspecified estrogen receptor status, unspecified site of breast (Multi) Start: 11-04-2023 End: 11-04-2023 Office outpatient visit 25 minutes Stevie Sam Schumacherel DO Work Phone: [facility] Comment on above: Malignant neoplasm o f upper-outer quadrant of left breast in female, estrogen receptor positive (HCC) (Primary Dx) Start: 11-04-2023 End: 11-04-2023 ambulatory Stevie E Fanny DO Work Phone: [facility] Comment on above: Arrived Start: 10-30-2023 Orders Only Stevie E Goebe l DO Work Phone: [facility] Comment on above: Malignant neoplasm o f upper-outer quadrant of left breast in female, estrogen receptor positive (HCC) (Primary Dx) Start: 10-29-2023 End: 11-27-2023 ambulatory [facility] Start: 10-14-2023 End: 10-28-2023 Subsequent hospital visit by physician Darrick Santos DO Work Phone: [facility] Start: 10-06-2023 Telephone encounter Lisa Watters RD [facility] Comment on above: Nutrition Counseling Start: 09-30-2023 Orders Only Stevie E Goebe l DO Work Phone: [facility] Comment on above: Malignant neoplasm o f upper-outer quadrant of left breast in female, estrogen receptor positive (HCC) (Primary Dx) Start: 09-23-2023 End: 09-23-2023 ambulatory Stevie Sam SchulteFanny DO Work Phone: [facility] Comment on above: Malignant neoplasm o f upper-outer quadrant of left breast in female, estrogen receptor positive (HCC) Start: 09-18-2023 End: 09-18-2023 Subsequent hospital visit by physician Stevie Escobedo DO Work Phone: [facility] Non-Invasive Cardiology Comment on above: Admission for therap eutic drug monitoring; Encounter for monitoring cardiotoxic drug therapy Start: 09-18-2023 End: 09-18-2023 ambulatory STEVIE ESCOBEDO [facility] Start: 09-12-2023 End: 09-12-2023 Subsequent hospital visit by physician Vicki Diego MD Work Phone: [facility] Comment on above: Malignant neoplasm o f upper-outer quadrant of left breast in female, estrogen receptor positive (HCC) (HCC) (Primary Dx) Start: 09-12-2023 End: 09-12-2023 ambulatory VICKI DIEGO [facility] Start: 09-05-2023 End: 09-05-2023 Orders Only Stevie E Fanny DO Work [...] (HCC) (HCC) Start: 08-15-2023 Orders Only Stevie E Goebe l DO Work Phone: [facility] Comment on above: Malignant neoplasm o f upper-outer quadrant of left breast in female, estrogen receptor positive (HCC) (HCC) (Primary Dx) Start: 08-12-2023 End: 08-12-2023 Subsequent hospital visit by physician Dalia [facility] Start: 08-12-2023 End: 08-12-2023 ambulatory Stevie E Fanny DO Work Phone: [...] End: 08-01-2023 Subsequent hospital visit by physician Dalia [facility] Start: 07-31-2023 End: 07-31-2023 ambulatory MARIE DEVI [facility] Start: 07-31-2023 End: 07-31-2023 Subsequent hospital visit by physician [facility] [id number] Ultrasound [facility] Comment on above: Thyroid nodule Nontoxic single thyr oid nodule Start: 07-30-2023 End: 07-30-2023 Subsequent hospital visit by physician Vicki Diego MD Work Phone: [facility] Start: 07-30-2023 End: 07-31-2023 ambulatory [facility] Start: 07-30-2023 End: 07-30-2023 Patient encounter procedure Marie Devi MD Work Phone: [facility] Comment on above: Parkinsonism, unspec [...] End: 07-25-2023 Subsequent hospital visit by physician Varian [facility] Start: 07-24-2023 End: 07-24-2023 Subsequent hospital visit by physician Varian [facility] Start: 07-23-2023 End: 07-23-2023 [...] Start: 07-18-2023 End: 07-18-2023 Orders Only Stevie Escobedo DO Work Phone: [facility] Comment on [...] by physician Vicki Diego MD Work Phone: [facility] Comment on above: Malignant neoplasm o f upper-outer quadrant of left female breast, unspecified estrogen receptor status (HCC) Start: 07-03-2023 End: 07-03-2023 Office outpatient visit 25 minutes Vicki Diego MD Work Phone: [facility] Comment on above: Malignant neoplasm o f upper-outer quadrant of left breast in female, estrogen receptor positive (HCC) (Primary Dx) Start: 07-03-2023 End: 07-03-2023 Subsequent hospital visit by physician Billing Only Appointments Radiation Oncology [facility] Comment on above: Arrived Start: 07-01-2023 Orders Only Stevie alvarado DO Work Phone: [facility] Comment on above: Malignant neoplasm o f upper-outer quadrant of left breast in female, estrogen receptor positive (HCC) (Primary Dx) Start: 06-26-2023 End: 06-26-2023 Office outpatient visit 40 minutes Marie Devi MD Work Phone: [facility] Comment on above: Parkinsonism, unspec ified Parkinsonism type (Primary Dx); Toxic effect of chemotherapy; Dehydration; Malignant neoplasm of right female breast, unspecified estrogen receptor status, unspecified site of breast (CMS/HCC) Start: 06-26-2023 End: 06-26-2023 Subsequent hospital visit by physician Stevie Escobedo DO Work Phone: [facility] Non-Invasive Cardiology Comment on above: Encounter for monito ring cardiotoxic drug therapy Start: 06-24-2023 End: 06-24-2023 Office outpatient visit 25 minutes Stevie Escobedo DO Work Phone: [facility] Comment on above: Malignant neoplasm o f upper-outer quadrant of left breast in female, estrogen receptor positive (HCC) (Primary Dx) Start: 06-24-2023 End: 06-24-2023 ambulatory Stevie Sam Escobedo DO Work Phone: [facility] Comment on above: Malignant neoplasm o f upper-outer quadrant of left breast in female, 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, estrogen receptor positive (HCC) (HCC) Start: 06-13-2023 End: 04-12-2024 Telephone encounter Tisha Fernandez RN Work Phone: [facility] Comment on above: Erroneous encounter- disregard Home Care (Start of care confirmation call) Start: 06-13-2023 End: 06-13-2023 ambulatory Stevie E Fanny DO Work Phone: [facility] Comment on above: Malignant neoplasm o f upper-outer quadrant of left breast in female, estrogen receptor positive (HCC) Start: 06-12-2023 Telephone encounter Darlene Lionel KIER[facility] Start: 06-11-2023 Telephone encounter Lisa Watters RD [facility] Comment on above: Nutrition Counseling Start: 06-10-2023 Orders Only Stevie Schumachere l DO Work Phone: [facility] Comment on above: Malignant neoplasm o f upper-outer quadrant of left breast in female, estrogen receptor positive (HCC) (Primary Dx) Start: 06-09-2023 Telephone encounter Stevie jacobsbel DO Work Phone: [facility] Comment on above: Lab Orders Start: 06-04-2023 Telephone encounter Darlene Paganels KIERA [facility] Start: 06-03-2023 End: 06-03-2023 Subsequent hospital visit by physician Stevie Escobedo DO Work Phone: [facility] Comment on above: Malignant neoplasm o f upper-outer quadrant of left breast in female, estrogen receptor positive (HCC) ; Localized edema Start: 06-03-2023 Telephone encounter Stevie Vargas G oebel DO Work Phone: [facility] Comment on above: Orders Start: 06-03-2023 End: 06-03-2023 Office outpatient visit 25 minutes Stevie E Fanny DO Work Phone: [facility] Comment on above: Malignant neoplasm o [...] Only Stevie E Fanny DO Work Phone: [facility] Comment on above: Malignant neoplasm o f upper-outer quadrant of left breast in female, estrogen receptor positive (HCC) (Primary Dx) Malignant neoplasm o f upper-outer quadrant of left breast in female, estrogen receptor positive (HCC) Start: 05-20-2023 End: 05-20-2023 Orders Only Stevie E Fanny DO Work Phone: [facility] Comment on above: Malignant neoplasm o f upper-outer quadrant of left breast in female, estrogen receptor positive (HCC) (Primary Dx) Malignant neoplasm o f upper-outer quadrant of left breast in female, estrogen receptor positive (HCC) Start: 05-20-2023 End: 05-20-2023 Office outpatient visit 25 minutes Stevie E Fanny DO Work Phone: [facility] Comment on above: Malignant neoplasm o f upper-outer quadrant of left breast in female, estrogen receptor positive (HCC) (Primary Dx) Start: 05-13-2023 End: 05-13-2023 ambulatory Stevie E Fanny DO Work Phone: [facility] Comment on above: Malignant neoplasm o f upper-outer quadrant of left breast in female, estrogen receptor positive (HCC) Start: 05-12-2023 Telephone encounter Stevie E G oebel DO Work Phone: [facility] Comment on above: order for ECHO Start: 05-08-2023 Orders Only Stevie E Goebe l DO Work Phone: [facility] Comment on above: Malignant neoplasm o f upper-outer quadrant of left breast in female, estrogen receptor positive (HCC) (Primary Dx) Start: 05-06-2023 End: 05-06-2023 Office outpatient visit 25 minutes Stevie E Fanny DO Work Phone: [facility] Comment on above: Malignant neoplasm o f upper-outer quadrant of left breast in female, estrogen receptor positive (HCC) (Primary Dx) Start: 05-06-2023 End: 05-06-2023 ambulatory Stevie E Fanny DO Work Phone: [facility] Comment on above: Malignant neoplasm o f upper-outer quadrant of left breast in female, estrogen receptor positive (HCC) Start: 05-01-2023 Orders Only Stevie E Goebe l DO Work Phone: [facility] Comment on above: Malignant neoplasm o f upper-outer quadrant of left breast in female, estrogen receptor positive (HCC) (Primary Dx) Start: 04-29-2023 End: 04-29-2023 ambulatory Stevie E Fanny DO Work Phone: [facility] Comment on above: Malignant neoplasm o f upper-outer quadrant of left breast in female, estrogen receptor positive (HCC) Start: 04-23-2023 Orders Only Stevie E Goebe l DO Work Phone: [facility] Comment on above: Malignant neoplasm o f upper-outer quadrant of left breast in female, estrogen receptor positive (HCC) (Primary Dx) Start: 04-22-2023 End: 04-22-2023 Office outpatient visit 25 minutes Stevie E Fanny DO Work Phone: [facility] Comment on above: Malignant neoplasm o f upper-outer quadrant of left breast in female, estrogen receptor positive (HCC) (Primary Dx) Start: 04-22-2023 End: 04-22-2023 ambulatory Stevie E Fanny DO Work Phone: [facility] Comment on above: Malignant neoplasm o f upper-outer quadrant of left breast in female, estrogen receptor positive (HCC) Start: 04-15-2023 Orders Only Stevie E Goebe l DO Work Phone: [facility] Start: 04-09-2023 Orders Only Stevie E Goebe l DO Work Phone: [facility] Comment on above: Malignant neoplasm o f upper-outer quadrant of left breast in female, estrogen receptor positive (HCC) (Primary Dx) Start: 04-08-2023 End: 04-08-2023 Office outpatient visit 25 minutes Stevie E Fanny DO Work Phone: [facility] Comment on above: Malignant neoplasm o [...] Stevie E Goebe l DO Work Phone: [facility] Comment on above: Malignant neoplasm o [...] Work Phone: [facility] Comment on above: Arrived Start: 03-26-2023 End: 03-26-2023 Orders Only Stevie E Fanny DO Work Phone: [facility] Comment on above: Malignant neoplasm o f upper-outer quadrant of left breast in female, estrogen receptor positive (HCC) (Primary Dx) Malignant neoplasm o f upper-outer quadrant of left breast in female, estrogen receptor positive (HCC) ; Other general symptoms and signs Start: 03-24-2023 Refill Stevie E Goebe l DO Work Phone: [facility] Comment on above: Malignant neoplasm o f upper-outer quadrant of left breast in female, estrogen receptor positive (HCC) Start: 03-18-2023 End: 03-18-2023 Office outpatient new 60 minutes Stevie Escobedo DO Work Phone: [facility] Comment on above: Malignant neoplasm o f upper-outer quadrant of left breast in female, estrogen receptor positive (HCC) (Primary Dx); Other general symptoms and signs Start: 03-06-2023 End: 03-06-2023 Office outpatient new 60 minutes Vicki Diego MD Work Phone: [facility] Comment on above: [...] 25 minutes Marie Devi MD Work Phone: [facility] Comment on above: Depression with anxi ety (Primary Dx); Repeated falls; Parkinsonism, unspecified Parkinsonism type (CMS/HCC); Bilateral lower extremity edema Start: 02-12-2023 End: 02-12-2023 Subsequent hospital visit by physician Procedure Mammo [facility] Work Phone: Mammography Comment on above: Malignant neoplasm o f upper-outer quadrant of left breast in female, estrogen receptor positive (HCC) [C50.412, Z17.0] Start: 02-10-2023 ambulatory Alecia Hou MD Work Phone: Mammography Comment on above: Radio Imaging Study Comments Start: 02-10-2023 Patient encounter procedure Alecia Hou MD Work Phone: [facility] Start: 02-06-2023 Telephone encounter Torrie Choi MD Work Phone: General Surgery Comment on above: Patient Update Start: 02-05-2023 Telephone encounter Torrie Choi MD Work Phone: General Surgery Comment on above: surgery concerns Start: 02-05-2023 End: 02-05-2023 Admission to establishment [place] [id number] Work Phone: [facility] Start: 02-05-2023 End: 02-05-2023 ambulatory [place] [id number] Work Phone: Pre Anesthesia Comment on above: Pre-op evaluation (P rimary Dx); Past history of allergy to penicillin-type antibiotic; MARCY on CPAP; History of uterine cancer; Cerebrovascular accident (CVA), unspecified mechanism (HCC); Anxiety and depression; Parkinsonism, unspecified Parkinsonism type (HCC); Personal history of penicillin allergy Start: 02-05-2023 End: 02-05-2023 Preprocedural examination done [place] [id number] Work Phone: [facility] Work Phone: Start: 02-03-2023 End: [...] 25 minutes Marie Devi MD Work Phone: [facility] Comment on above: Parkinsonism, unspec [...] encounter procedure Dara Sorensen DO Work Phone: [facility] Comment on above: Seborrheic keratosis (Primary Dx); Pigmented skin lesion suspicious for malignant neoplasm Start: 10-24-2022 End: 10-24-2022 Office outpatient visit 15 minutes Dara Sorensen DO Work Phone: [facility] Comment on above: Seborrheic keratosis (Primary Dx) Start: 09-26-2022 ambulatory MD MARIE DEVI Fac ility:[id number] Start: 08-13-2022 AUDIT Marie Devi Work Phone: [facility] Work Phone: Start: 07-19-2022 Chart Update Marie Devi Work Phone: [facility] Work Phone: Start: 07-17-2022 Chart Update Marie Devi Work Phone: [facility] Work Phone: Start: 07-17-2022 Office outpatient visit 25 minutes Marie Devi Work Phone: [facility] Work Phone: Start: 07-17-2022 ambulatory MD MARIE DEVI Fac ility:[id number] Start: 01-10-2022 Office outpatient visit 25 minutes Marie Devi Work Phone: [facility] Work Phone: Start: 12-13-2021 AUDIT Marie Devi Work Phone: [facility] Work Phone: Start: 09-22-2021 Chart Update Marie Devi Work Phone: [facility] Work Phone: Start: 09-21-2021 Documentation procedure Mammography Coordinator [facility] Start: 09-21-2021 Letter encounter Mammography Coordinator [facility] Start: 09-21-2021 End: 09-21-2021 Subsequent hospital visit by physician Screen/Diagnostic Mammo [facility] Work Phone: Mammography Comment on above: Encounter for screen ing mammogram for malignant neoplasm of breast [Z12.31] Start: 07-13-2021 Chart Update Marie Devi Work Phone: [facility] Work Phone: Start: 01-11-2021 AUDIT Marie Devi Work Phone: [facility] Work Phone: Start: 01-10-2021 Office outpatient visit 25 minutes Marie Devi Work Phone: [facility] Work Phone: Start: 11-11-2020 Rx Renewal Marie Devi Work Phone: [facility] Work Phone: Start: 07-12-2020 Patient [...] Patient encounter procedure Marie Devi Work Phone: [facility] Work Phone: Procedures Date Procedure [...] total Elo Manley MD Work Phone: Start: 10-23-2023 Basic metabolic [...] Work Phone: Start: 07-31-2023 US THYROID MARIE DULL E Start: 07-30-2023 US THYROID MARIE DULL E Start: 07-30-2023 Us soft tissue head & neck real time imge docm Marie Devi MD Work Phone: Start: 07-30-2023 US THYROID MARIE DULL E Start: 07-30-2023 Us soft tissue head & neck real time imge docdelbert Devi MD Work Phone: Start: 07-15-2023 Comprehensive [...] Perq breast loc phylicia ce placemt 1st les us imag Torrie Choi MD Work Phone: [...] DTaP/Tdap/Td Vaccines (2 - Td or Tdap) [facility] Start: 09-01-2033 Urine microalbumin profile DTaP,Tdap,Td Vaccine (2 - Td or Tdap) [facility] Start: 12-11-2027 Diabetes Screening Diabetes Screenrylan tanner [facility] Start: 07-17-2027 Lipid panel Lipid Panel [facility] Start: 10-26-2026 Diabetes Screening Diabetes Screenin ciro [facility] Start: 03-24-2026 Oncology Follow-Up: Breast Cancer Survivorship Plan (#5) Oncology Follow-Up: Breast Cancer Survivorship Plan (#5) [facility] Start: 02-05-2026 DIABETES SCREEN DIABETES SCREEN [facility] Start: 09-22-2025 Oncology Follow-Up: Breast Cancer Survivorship Plan (#4) Oncology Follow-Up: Breast Cancer Survivorship Plan (#4) [facility] Start: 09-18-2025 Medicare Annual Well ness Visit Medicare Annual Wellness Visit (AWV) [facility] Start: 09-02-2025 DIABETES SCREEN DIABETES SCREEN [facility] Start: 04-12-2025 End: 04-12-2025 Patient encounter procedure 04/12/2025 8:45 AM EDT Office Visit [facility] [place] [address] [place] [phone] Stevie Escobedo DO [address] [place], [place] [id number] [facility] [place] Start: 03-26-2025 End: 10-08-2025 DBT Breast - bilateral screening Bilateral screening mammogram with tomosynthesis Imaging Routine Malignant neoplasm of upper-outer quadrant of left breast in female, estrogen receptor positive (HCC) Expected: 03/26/2025, Expires: 10/08/2025 [facility] Work Phone: Comment on above: Expected: 03/26/2025 , Expires: 10/08/2025 Start: 03-24-2025 Oncology Follow-Up: Breast Cancer Survivorship Plan (#3) Oncology Follow-Up: Breast Cancer Survivorship Plan (#3) [facility] Start: 03-16-2025 End: 03-16-2025 Patient encounter procedure 03/16/2025 1:30 PM EDT Appointment [facility] Radiation Oncology - [place] [address] [place] [phone] Stevie Escobedo DO [address] [place] [address] Vicki Diego MD [address] [place] [address] [facility] Radiation Oncology - [place] Start: 02-21-2025 Influenza vaccination Influenza Vacc ine (#1) [facility] Start: 01-26-2025 End: 01-26-2025 Patient encounter procedure 01/26/2025 8:00 AM EDT Office Visit [facility] [address] [place] [phone] Leonardo Santos DO [address] [facility] [place], [place] [address] [facility] Start: 09-22-2024 Screening for malign ant neoplasm of breast Mammogram: Breast Cancer Survivorship Plan (#2) [facility] Start: 08-10-2024 End: 08-10-2024 Patient encounter procedure [facility] Start: 07-31-2024 Medicare Annual Well ness Visit Medicare Annual Wellness Visit (AWV) [facility] Start: 06-23-2024 Advance Directive Discussion Advance Directive Discussion [facility] Start: 06-23-2024 Medicare Advantage Annual Wellness Visit Medicare Advantage Annual Wellness Visit [facility] Start: 03-25-2024 End: 03-25-2024 Patient encounter procedure 03/25/2024 2:20 PM EDT Appointment Mammography [address] [place] [address] Procedure: LEE SCREENING W SHIVA Mammography Comment on above: Procedure: LEE SCREE MAZIN W SHIVA Start: 03-24-2024 Complete blood count ONCBCN Woods rvivorship Screening (#1) [facility] Start: 03-24-2024 Screening for malign ant neoplasm of breast Mammogram: Breast Cancer Survivorship Plan (#1) [facility] Start: 03-17-2024 End: 03-17-2024 Patient encounter procedure 03/17/2024 2:30 PM EDT Appointment [facility] [address] [place] [phone] Stevie Escobedo DO [address] [place] [address] Vicki Diego MD [address] [place] [address] [facility] Start: 02-22-2024 COVID-19 Vaccine ( season) COVID-19 Vaccine ( season) [facility] Start: 02-22-2024 Covid-19 Vaccine () Covid-19 Vaccine () [facility] Start: 02-22-2024 Influenza vaccination Influenza Vacc ine (#1) [facility] Start: 02-19-2024 End: 02-19-2024 Patient encounter procedure 02/19/2024 9:15 AM EDT Office Visit General Surgery [address] [facility] [address] [place] [address] Torrie Choi MD [address] [facility] [address] [address] [place] [address] follow up General Surgery Comment on above: follow up Start: 02-18-2024 End: 02-18-2024 Patient encounter procedure 02/18/2024 7:00 AM EDT Office Visit [facility] [address] [place] [phone] Marie Devi MD [address] [facility] [place] [id number] [facility] Start: 02-03-2024 End: 02-03-2024 Patient encounter procedure 02/03/2024 9:30 AM EDT Office Visit [facility] [address] [place] [phone] Fanny, Stevie E, DO [address] [place] [address] [facility] Start: 01-12-2024 [facility] Start: 01-12-2024 Depresssion Monitoring [facility] Start: 12-16-2023 End: 12-16-2023 Patient encounter procedure 12/16/2023 9:30 AM EDT Office Visit [facility] [address] [place] [address] Stevie Escobedo, DO [address] [place] [address] [facility] Start: 12-16-2023 End: 12-16-2023 ambulatory 12/16/2023 9:00 AM EDT Infusion [facility] [address] [place] [phone] Stevie Escobedo DO [address] [place] [address] [facility] Start: 12-03-2023 End: 12-03-2023 Patient encounter procedure 12/03/2023 9:00 AM EDT [facility]ointment [facility] [address] [place] [address] Dara Kearney, WILDLIFE SCIENCE PROFESSOR [facility] Start: 12-01-2023 End: 12-01-2023 Home visit 12/01/2023 9:00 AM EDT Home Care Visit [facility] [address] [place] [address] Dara Kearney, WILDLIFE SCIENCE PROFESSOR [facility] Start: 11-27-2023 End: 11-27-2023 Home visit 11/27/2023 8:00 AM EDT Home [facility] Visit [facility] [address] [place] [address] Dara Kearney, WILDLIFE SCIENCE PROFESSOR [facility] Start: 11-26-2023 End: 11-26-2023 Patient encounter procedure 11/26/2023 9:00 AM EDT Appointment [facility] [address] [place] [address] Hugo Louise, RN [facility] Start: 11-25-2023 End: 11-25-2023 Home visit 11/25/2023 10:00 AM EDT Home [facility] Visit [facility] [address] [place] [address] Dara Kearney SLP [facility] Start: 11-25-2023 End: 11-25-2023 ambulatory 11/25/2023 9:00 AM EDT Infusion [facility] [address] [place] [phone] Stevie Escobedo DO [address] [place] [address] [facility] Start: 11-20-2023 End: 11-20-2023 Home visit [facility] Start: 11-19-2023 End: 11-19-2023 Home visit 11/19/2023 8:00 AM EDT Home [facility] Visit [facility] [address] [place] [address] Hugo Louise, RN [facility] Start: 11-18-2023 End: 11-18-2023 Home visit 11/18/2023 12:30 PM EDT Home [facility] Visit [facility] [address] [place] [address] Dara Kearney, WILDLIFE SCIENCE PROFESSOR [facility] Start: 11-13-2023 End: 11-13-2023 Home visit 11/13/2023 12:30 PM EDT Home [facility] Visit [facility] [address] [place] [address] Dara Kearney, WILDLIFE SCIENCE PROFESSOR [facility] Start: 11-12-2023 End: 11-12-2023 Home visit [facility] Start: 11-04-2023 End: 11-03-2024 CBC W Auto Differential panel - Blood CBC auto differential Lab STAT Malignant neoplasm of upper-outer quadrant of left breast in female, estrogen receptor positive (HCC) Expected: 11/04/2023, Expires: 11/03/2024 [facility] Work Phone: Comment on above: Expected: 11/04/2023 , Expires: 11/03/2024 Start: 11-04-2023 End: 11-03-2024 Comprehensive metabolic 2000 panel - Serum or Plasma Comprehensive Metabolic Panel - [facility] STAT Malignant neoplasm of upper-outer quadrant of left breast in female, estrogen receptor positive (HCC) Expected: 11/04/2023, Expires: 11/03/2024 [facility] Comment on above: Expected: 11/04/2023 , Expires: 11/03/2024 Start: 11-04-2023 End: 11-04-2023 ambulatory 11/04/2023 10:00 AM EDT Infusion [facility] [address] [place] [phone] Stevie Escobedo DO [address] [place] [address] [facility] Start: 11-04-2023 End: 11-04-2023 Patient encounter procedure 11/04/2023 9:45 AM EDT Office Visit [facility] [address] 1[address] [place] [phone] Stevie Escobedo DO [address] [place] [address] [facility] Start: 10-14-2023 End: 10-13-2024 CBC W Auto Differential panel - Blood CBC auto differential Lab STAT Malignant neoplasm of upper-outer quadrant of left breast in female, estrogen receptor positive (HCC) (HCC) Expected: 10/14/2023, Expires: 10/13/2024 [employer] Work Phone: Comment on above: Expected: 10/14/2023 , Expires: 10/13/2024 Start: 10-14-2023 End: 10-13-2024 Comprehensive metabolic 2000 panel - Serum or Plasma Comprehensive Metabolic Panel - [facility] STAT Malignant neoplasm of upper-outer quadrant of left breast in female, estrogen receptor positive (HCC) (HCC) Expected: 10/14/2023, Expires: 10/13/2024 [employer] Comment on above: Expected: 10/14/2023 , Expires: 10/13/2024 Start: 10-14-2023 End: 10-14-2023 Patient encounter procedure [facility] Start: 10-14-2023 End: 10-14-2023 ambulatory [facility] Start: 09-23-2023 End: 09-22-2024 CBC W Auto Differential panel - Blood CBC auto differential Lab STAT Malignant neoplasm of upper-outer quadrant of left breast in female, estrogen receptor positive (HCC) (HCC) Expected: 09/23/2023, Expires: 09/22/2024 [employer] Work Phone: Comment on above: Expected: 09/23/2023 , Expires: 09/22/2024 Start: 09-23-2023 End: 09-22-2024 Comprehensive metabolic 2000 panel - Serum or Plasma Comprehensive Metabolic Panel - [facility] STAT Malignant neoplasm of upper-outer quadrant of left breast in female, estrogen receptor positive (HCC) (HCC) Expected: 09/23/2023, Expires: 09/22/2024 [employer] [facility] [employer] Comment on above: Expected: 09/23/2023 , Expires: 09/22/2024 Start: 09-23-2023 End: 09-23-2023 ambulatory [facility] Start: 09-18-2023 End: 07-29-2025 US Heart Transthoracic Transthoracic echocardiogram (TTE) complete with contrast, bubble, strain, and 3D PRN CV Echocardiography Routine Admission for therapeutic drug monitoring Encounter for monitoring cardiotoxic drug therapy Expected: 09/18/2023 (Approximate), Expires: 07/29/2025 [employer] Work Phone: Comment on above: Expected: 09/18/2023 (Approximate), Expires: 07/29/2025 Start: 09-18-2023 End: 09-18-2023 Patient encounter procedure [facility] Non-Invasive Cardiology Start: 09-16-2023 End: 09-16-2023 ambulatory 09/16/2023 1:00 PM EDT Infusion [facility] [address] [place] [phone] Stevie Escobedo DO [address] [place], [place] [phone] [facility] Start: 09-12-2023 End: 09-12-2023 Patient encounter procedure 09/12/2023 1:30 PM EDT Appointment [facility] [address] [place] [address] Vicki Diego MD [address] [place] [address] [facility] Start: 09-11-2023 End: 09-11-2023 Patient encounter procedure 09/11/2023 1:30 PM EDT Appointment [facility] [address] [place] [address] Vicki Diego MD [address] [place] [address] [facility] Start: 09-05-2023 End: 09-05-2023 Patient encounter procedure [facility] Start: 09-05-2023 Subsequent hospital visit by physician 09/05/2023 10:00 AM EDT Hospital Encounter [facility] [place] [facility] [address] [place] [address] Stevie Escobedo DO [address] [place] [address] [facility] Start: 09-02-2023 End: 09-02-2024 Comprehensive metabolic 2000 panel - Serum or Plasma Comprehensive Metabolic Panel - [facility] STAT Malignant neoplasm of upper-outer quadrant of left breast in female, estrogen receptor positive (HCC) (HCC) Expected: 09/02/2023, Expires: 09/02/2024 [facility]: Comment on above: Expected: 09/02/2023 , Expires: 09/02/2024 Start: 09-02-2023 End: 09-01-2024 DXA Skeletal system.axial Views for bone density DEXA bone density axial skeleton Imaging Routine Malignant neoplasm of upper-outer quadrant of left breast in female, estrogen receptor positive (HCC) (HCC) Asymptomatic menopausal state Encounter for monitoring anastrozole therapy Expected: 09/02/2023, Expires: 09/01/2024 [facility] Work Phone: Comment on above: Expected: 09/02/2023 , Expires: 09/01/2024 Start: 09-02-2023 End: 09-02-2023 ambulatory 09/02/2023 9:00 AM EDT Infusion [facility] [address] [place] [phone] Stevie Escobedo DO [address] [place] [address] [facility] Start: 09-02-2023 End: 09-02-2023 Patient encounter procedure 09/02/2023 8:45 AM EDT Office Visit [facility] [address] [place] [place] [phone] Stevie Escobedo DO [address] [place], [place] [phone] [facility] Start: 08-26-2023 End: 08-26-2023 Patient encounter procedure 08/26/2023 9:45 AM EST Office Visit [facility] [address] [place] [place] [phone] Stevie Escobedo DO [address] [place] [address] [facility] Start: 08-26-2023 End: 08-26-2023 ambulatory 08/26/2023 9:00 AM EST Infusion [facility] [address] [place] [phone] Stevie Escobedo, DO [address] [place] [address] [facility] Start: 08-12-2023 End: 08-12-2023 Patient encounter procedure 08/12/2023 1:15 PM EST Appointment [facility] [address] [place] [phone] [facility] Start: 08-12-2023 End: 08-12-2023 ambulatory 08/12/2023 8:00 AM EST Infusion [facility] [address] [place] [phone] Stevie Escobedo, DO [address] [place] [address] [facility] Start: 08-11-2023 End: 08-11-2023 Patient [...] [facility] [address] [place] [phone] Stevie Escobedo, DO [address] [place] [address] [facility] Start: 08-04-2023 End: 08-04-2023 Patient encounter procedure [facility] Start: 08-01-2023 End: 08-01-2023 Patient encounter procedure [facility] Start: 07-31-2023 End: 07-31-2023 Patient encounter procedure [facility] Start: 07-30-2023 End: 07-30-2023 Patient encounter procedure [facility] Start: 07-30-2023 End: 07-30-2023 Patient encounter procedure 07/30/2023 7:10 AM EST Office Visit [facility] [address] [place] [phone] Marie Devi MD [address] [facility] [place] [address] [facility] Start: 07-29-2023 End: 07-29-2023 Patient encounter [...] Appointment [facility] [address] [place] [address] [facility] Start: 07-18-2023 Medicare Annual Well ness Visit Medicare Annual Wellness Visit (AWV) [facility] Start: 07-18-2023 End: 07-18-2023 Patient encounter procedure 07/18/2023 1:15 PM EST Appointment [facility] [address] [place] [phone] [facility] Start: 07-17-2023 End: 07-17-2023 Patient encounter procedure 07/17/2023 4:15 PM EST Appointment [facility] [address] [place] [address] Vicki Diego MD [address] [facility] [address] [place] [address] [facility] Start: 07-17-2023 End: 07-17-2023 Patient encounter procedure 07/17/2023 2:45 PM EST Appointment [facility] [address] [place] [address] Vicki Diego MD [address] [facility] [address] [place] [address] [facility] Start: 07-16-2023 End: 07-16-2023 Patient encounter procedure 07/16/2023 4:15 PM EST Appointment [facility] [address] [place] [address] [facility] Start: 07-15-2023 End: 07-15-2023 ambulatory [facility] Comment on above: Arrived Start: 07-15-2023 End: 07-15-2023 Patient encounter procedure [facility] Start: 07-14-2023 End: 07-14-2023 Patient encounter procedure 07/14/2023 4:15 PM EST Appointment [facility] [address] [place] [phone] [facility] Start: 07-11-2023 End: 07-11-2023 Patient encounter procedure 07/11/2023 2:15 PM EST Appointment [facility] [address] [place] [phone] Vicki Diego MD [address] [facility] [address] [place] [address] [facility] Start: 07-03-2023 End: 07-03-2023 Patient encounter procedure [facility] Start: 06-26-2023 End: 05-12-2025 US Heart Transthoracic Transthoracic echocardiogram (TTE) complete with contrast, bubble, strain, and 3D PRN CV Echocardiography Routine Encounter for monitoring cardiotoxic drug therapy Expected: 06/26/2023 (Approximate), Expires: 05/12/2025 [facility] [employer] Work Phone: Comment on above: Expected: 06/26/2023 (Approximate), Expires: 05/12/2025 Start: 06-26-2023 End: 06-26-2023 Patient encounter procedure 06/26/2023 11:00 AM EST Appointment [facility] Non-Invasive Cardiology [address] [place] [phone] Stevie Escobedo DO [address] [place], [place] [phone] [facility] Non-Invasive Cardiology Start: 06-24-2023 End: 06-24-2023 Patient encounter procedure [facility] Start: 06-24-2023 End: 06-24-2023 ambulatory 06/24/2023 8:00 AM EST Infusion [facility] [address] [place] [phone] Stevie Escobedo DO [address] [place], [place] [phone] [facility] Start: 06-23-2023 Advance Directive Discussion Advance Directive Discussion [facility] Start: 06-23-2023 Medicare Advantage Annual Wellness Visit Medicare Advantage Annual Wellness Visit [facility] Start: 06-20-2023 End: 06-20-2023 ambulatory [facility] Start: 06-17-2023 End: 06-17-2023 Patient encounter procedure 06/17/2023 10:30 AM EST Office Visit [facility] [address] [place] [address] [place] [phone] Stevie Escobedo DO [address] [place], [place] [phone] [facility] Start: 06-17-2023 End: 06-17-2023 ambulatory 06/17/2023 10:00 AM EST Infusion [facility] [address] [place] [address] Stevie Escobedo, DO [address] [place] [place] [address] [facility] Start: 06-13-2023 End: 06-13-2023 ambulatory 06/13/2023 9:00 AM EST Infusion [facility] [address] [place] [address] Stevie Escobedo, DO [address] [place] [address] [facility] Start: 06-10-2023 End: 06-10-2023 ambulatory 06/10/2023 10:00 AM EST Infusion [facility] [address] [place] [address] Stevie Escobedo, DO [address] [place] [address] [facility] Start: 06-06-2023 End: 06-06-2023 ambulatory 06/06/2023 9:00 AM EST Infusion [facility] [address] [place] [address] Stevie Escobedo DO [address] [place] [address] [facility] Start: 06-03-2023 End: 06-03-2023 Patient encounter procedure 06/03/2023 11:45 AM EST Office Visit [facility] [address] [place] [address] [place] [address] Stevie Escobedo, DO [address] [place] [address] [facility] Start: 06-03-2023 End: 06-03-2023 Patient encounter procedure 06/03/2023 9:15 AM EST Office Visit [facility] [address] [place] [address] [place] [phone] Stevie Escobedo DO [address] [place] [address] [facility] Start: 06-03-2023 End: 06-03-2023 ambulatory [facility] Start: 05-30-2023 End: 05-30-2023 ambulatory 05/30/2023 9:00 AM EST Infusion [facility] [address] [place] [address] Stevie Escobedo DO [address] [place] [address] [facility] Start: 05-27-2023 End: 05-27-2023 ambulatory [facility] Start: 05-23-2023 End: 05-23-2023 ambulatory 05/23/2023 9:00 AM EST Infusion [facility] [address] [place] [address] Stevie Escobedo DO [address] [place] [address] [facility] Start: 05-20-2023 End: 05-20-2023 Patient encounter procedure 05/20/2023 10:15 AM EST Office Visit [facility] [address] [place] [place] [address] Stevie Escobedo DO [address] [place] [address] [facility] Start: 05-20-2023 End: 05-20-2023 ambulatory 05/20/2023 9:00 AM EST Infusion [facility] [address] [place] [phone] Stevie Escobedo DO [address] [place] [address] [facility] Start: 05-13-2023 End: 05-13-2023 ambulatory [facility] Start: 05-06-2023 End: 05-06-2023 Patient encounter procedure 05/06/2023 10:45 AM EST Office Visit [facility] [address] [place] [place] [phone] Stevie Escobedo DO [address] [place] [address] [facility] Start: 05-06-2023 End: 05-06-2023 ambulatory [facility] Start: 04-29-2023 End: 04-29-2023 ambulatory [facility] Start: 04-22-2023 End: 04-22-2023 Patient encounter procedure 04/22/2023 8:45 AM EDT Office Visit [facility] [address] [place] [place] [phone] Stevie Escobedo DO [address] [place] [address] [facility] Start: 04-22-2023 End: 04-22-2023 ambulatory [facility] Start: 04-15-2023 End: 04-15-2023 ambulatory [facility] Start: 04-08-2023 End: 04-08-2023 Patient encounter procedure 04/08/2023 10:45 AM EDT Office Visit [facility] [address] [place] [place] [phone] Stevie Escobedo DO [address] [place] [address] [facility] Start: 04-08-2023 End: 04-08-2023 ambulatory [facility] Start: 04-01-2023 End: 04-01-2023 ambulatory 04/01/2023 8:00 AM EDT Infusion [facility] [address] [place] [phone] [facility] Start: 03-31-2023 End: 03-31-2023 ambulatory 03/31/2023 11:00 AM EDT Infusion [facility] [address] [place] [phone] Stevie Escobedo DO [address] [place], [place] [phone] [facility] Start: 03-26-2023 End: 03-26-2023 Patient encounter procedure 03/26/2023 2:00 PM EDT Appointment [facility] [address] [place] [phone] Stevie Escobedo DO [address] [place], [place] [phone] [facility] Start: 03-18-2023 End: 03-18-2025 US Heart Transthoracic Transthoracic echocardiogram (TTE) complete with contrast, bubble, strain, and 3D PRN CV Echocardiography Routine Malignant neoplasm of upper-outer quadrant of left breast in female, estrogen receptor positive (HCC) Other general symptoms and signs Expected: 03/18/2023 (Approximate), Expires: 03/18/[address] [facility] Work Phone: Comment on above: Expected: 03/18/2023 (Approximate), Expires: 03/18/2025 Start: 03-18-2023 End: 03-18-2023 Patient encounter procedure 03/18/2023 1:30 PM EDT Office Visit [facility] [address] [place] [place] [phone] Stevie Escobedo DO [address] [place], [place] [phone] [facility] Start: 02-21-2023 COVID-19 Vaccine ( season) COVID-19 Vaccine ( season) [facility] Start: 02-21-2023 Influenza vaccination [facility] Start: 02-10-2023 End: 02-10-2023 Patient encounter procedure 02/10/2023 3:30 PM EDT Office Visit [facility] [address] [place] [address] Marie Devi MD [address] [place] [address], [address] [place] [address] [facility] Start: 01-23-2023 FUV, Provider: Marie Devi, Status: Pen, Time: 7:10 AM FUV, Provider: Marie Devi, Status: Pen, Time: 7:10 AM [facility] Work Phone: Start: 01-23-2023 End: 01-23-2023 Patient encounter procedure 01/23/2023 7:10 AM EDT Office Visit [facility] [address] [place] [address] Marie Devi MD [address] [facility] [place] [address] [facility] Start: 09-11-2022 Zoster Vaccines (2 of 2) Zoster Vacc clint (2 of 2) [facility] Start: 07-17-2022 Patient encounter procedure MCRANNUAL, Provider: Marie Devi, Status: Pen, Time: 7:10 AM [facility] Work Phone: Start: 06-23-2022 ADVANCE DIRECTIVE DISCUSSION ADVANCE DIRECTIVE DISCUSSION [facility] Start: 06-23-2022 DEPRESSION ASSESSMENT DEPRESSION ASS ESSMENT [facility] Start: 01-10-2022 FUV, Provider: Marie Devi, Status: Pen, Time: 7:10 AM FUV, Provider: Marie Devi, Status: Pen, Time: 7:10 AM [facility] Work Phone: Start: 08-01-2021 COVID-19 Vaccine (4 - Booster for Moderna series) COVID-19 Vaccine (4 - Booster for Moderna series) [facility] Start: 08-01-2021 COVID-19 Vaccine (4 - Moderna risk series) COVID-19 Vaccine (4 - Moderna risk series) [facility] Start: 08-01-2021 COVID-19 VACCINE (4 - Moderna series) COVID-19 VACCINE (4 - Moderna series) [facility] Start: 07-12-2021 FUV, Provider: Marie Devi, Status: Pen, Time: 7:00 AM FUV, Provider: Marie Devi, Status: Pen, Time: 7:00 AM [facility] Work Phone: Start: 06-23-2021 ADVANCE DIRECTIVE DISCUSSION ADVANCE DIRECTIVE DISCUSSION [facility] Start: 2021 RSV High Risk: (Elde rly (60+) or Population) (1 - 1-dose 75+ series) RSV High Risk: (Elderly (60+) or Population) (1 - 1-dose 75+ series) [facility] Start: 2021 RSV Immunization for Adults (1 - 1-dose 75+ series) RSV Immunization for Adults (1 - 1-dose 75+ series) [facility] Start: 2021 RSV Vaccine (1 - 1-d ose 75+ series) RSV Vaccine (1 - 1-dose 75+ series) [facility] Start: 01-10-2021 FUV, Provider: Marie Devi, Status: Pen, Time: 7:00 AM FUV, Provider: Marie Devi, Status: Pen, Time: 7:00 AM [facility] Work Phone: Start: 05-31-2020 Pneumococcal vaccination Pneum ococcal Vaccine (3 of 3 - PCV20 or PCV21) [facility] Start: 05-31-2020 Pneumococcal Vaccine : 50+ (3 of 3 - PCV20 or PCV21) Pneumococcal Vaccine: 50+ (3 of 3 - PCV20 or PCV21) [facility] Start: 05-31-2020 Pneumococcal Vaccine : 65+ (3 of 3 - PPSV23 or PCV20) Pneumococcal Vaccine: 65+ (3 of 3 - PPSV23 or PCV20) [facility] Start: 05-31-2020 Pneumococcal Vaccine : 65+ Years (3 - PPSV23 or PCV20) Pneumococcal Vaccine: 65+ Years (3 - PPSV23 or PCV20) [facility] Start: 01-05-2020 Xray Bone Dens ity, Dexa 1 or More Sites [facility] Work Phone: Start: 05-31-2016 Pneumococcal Vaccine : 65+ Years (#3) Pneumococcal Vaccine: 65+ Years (#3) [facility] Start: 05-31-2016 Pneumococcal Vaccine : 65+ Years (3 - PPSV23 if available, else PCV20) Pneumococcal Vaccine: 65+ Years (3 - PPSV23 if available, else PCV20) [facility] Start: 05-31-2016 Pneumococcal Vaccine : 65+ Years (3 - PPSV23 or PCV20) Pneumococcal Vaccine: 65+ Years (3 - PPSV23 or PCV20) [facility] Start: 07-31-2015 Pneumococcal Vaccine : 50+ Years (3 of 3 - PPSV23, PCV20 or PCV21) Pneumococcal Vaccine: 50+ Years (3 of 3 - PPSV23, PCV20 or PCV21) [facility] Start: 07-31-2015 Pneumococcal Vaccine : 65+ Years (3 of 3 - PPSV23 or PCV20) Pneumococcal Vaccine: 65+ Years (3 of 3 - PPSV23 or PCV20) [facility] Start: 05-07-2015 LIPID SCREEN LIPID SCREEN [facility] Start: 05-18-2013 DIABETES SCREEN DIABETES SCREEN [facility] Start: 06-18-2011 Adult depression screening assessment DEPRESSION SCREENING [facility] Start: 2011 PNEUMOCOCCAL: 65+ (1 - PCV) PNEUMOCOCCAL: 65+ (1 - PCV) [facility] Start: 2011 PNEUMOVAX AGE 65 AND OVER WITH 5YR LOOKBACK (#1) PNEUMOVAX AGE 65 AND OVER WITH 5YR LOOKBACK (#1) [facility] Start: 2006 RSV Immunization age d 60 or older (1 - 1-dose 60+ series) RSV Immunization aged 60 or older (1 - 1-dose 60+ series) [facility] Start: 2006 RSV patient s and/or patients aged 60+ years (1 - 1-dose 60+ series) RSV patients and/or patients aged 60+ years (1 - 1-dose 60+ series) [facility] Start: 2006 RSV Vaccine (1 - 1-d ose 60+ series) RSV Vaccine (1 - 1-dose 60+ series) [facility] Start: 02-01-1996 SHINGRIX VACCINE (1 of 2) SHINGRIX VACCINE (1 of 2) [facility] Start: 1991 COLOGUARD (FIT-DNA) COLOGUARD (FIT-D NA) [facility] Start: 1991 Colonoscopy COLONOSCOPY [facility] Start: 1991 COLORECTAL CANCER SCREENING COLORECTAL CANCER SCREENING [facility] Start: [address] COLONOGRAPHY [facility] Start: 1991 FECAL OCCULT BLOOD FECAL OCCULT BLOO D [facility] Start: 1991 SIGMOIDOSCOPY SIGMOIDOSCOPY [facility] Start: 02-01-1968 DTaP/Tdap/Td Vaccine s (1 - Tdap) DTaP/Tdap/Td Vaccines (1 - Tdap) [facility] Start: 1965 DTaP/Tdap/Td Vaccine s (1 - Tdap) DTaP/Tdap/Td Vaccines (1 - Tdap) [facility] Start: 1965 Urine microalbumin profile DTAP,TDAP,TD (1 - Tdap) [facility] Start: 02-01-1964 HEPATITIS C SCREENING HEPATITIS C [facility] Start: 02-01-1964 Hepatitis C screening Hepatitis C [facility] Start: 1958 Depression Screening Depression Scre ening [facility] Start: 1958 Depresssion Monitoring Depresssion M onitoring [facility] Start: 1946 Medicare Advantage Annual Wellness Visit (AWV) Medicare Advantage Annual Wellness Visit (AWV) [facility] Start: 1946 Medicare Annual Well ness Visit Medicare Annual Wellness Visit (AWV) [facility] Start: 1946 Screening for osteoporosis Bone Density Scan [facility] End: 06-03-2023 Bacteria identified in Urine by Culture [employer] Work Phone: Comment on above: Once (Lab) for 1 Occ urrences starting 06/03/2023 until 06/03/2023 End: 03-24-2024 CBC W Auto Differential panel - Blood CBC auto differential Lab STAT Malignant neoplasm of upper-outer quadrant of left breast in female, estrogen receptor positive (HCC) Once a week for 14 Occurrences starting 03/25/2023 until 03/24/2024 [employer] Work Phone: Comment on above: Once a week for 14 O ccurrences starting 03/25/2023 until 03/24/2024 End: 06-09-2024 CBC W Auto Differential panel - Blood CBC auto differential Lab STAT Malignant neoplasm of upper-outer quadrant of left breast in female, estrogen receptor positive (HCC) Every 3 weeks for 8 Occurrences starting 06/10/2023 until 06/09/2024 [employer] Work Phone: Comment on above: Every 3 weeks for 8 Occurrences starting 06/10/2023 until 06/09/2024 End: 03-24-2024 Comprehensive metabolic 1998 panel - Serum or Plasma Comprehensive metabolic panel Lab STAT Malignant neoplasm of upper-outer quadrant of left breast in female, estrogen receptor positive (HCC) Once a week for 14 Occurrences starting 03/25/2023 until 03/24/2024 [employer] Comment on above: Once a week for 14 O ccurrences starting 03/25/2023 until 03/24/2024 End: 06-09-2024 Comprehensive metabolic 1998 panel - Serum or Plasma Comprehensive metabolic panel Lab STAT Malignant neoplasm of upper-outer quadrant of left breast in female, estrogen receptor positive (HCC) Every 3 weeks for 8 Occurrences starting 06/10/2023 until 06/09/2024 [facility] Comment on above: Every 3 weeks for 8 Occurrences starting 06/10/2023 until 06/09/2024 End: 07-03-2023 CT Sim WO [employer] Work Phone: Comment on above: Once for 1 Occurrenc es starting 07/03/2023 until 07/03/2023 End: 03-04-2025 DBT Breast - bilateral screening LEE SCREENING [facility] Routine Visit for screening mammogram Malignant neoplasm of upper-outer quadrant of left breast in female, estrogen receptor positive (HCC) 1 Occurrences starting 02/04/2024 until 03/04/2025 [facility] Work Phone: Comment on above: 1 Occurrences starti ng 02/04/2024 until 03/04/2025 DERMATOPATHOLOGY -DERMPATH LAB DERMATOPATHOLOGY -DERMPATH LAB Pathology and Cytology Routine Pigmented skin lesion suspicious for malignant neoplasm Ordered: 10/30/2022 [facility] Service Area Work Phone: Comment on above: Ordered: 10/30/2022 End: 03-04-2024 LEE NDL LOC W LEE GD LEFT LEE NDL LOC W LEE GD LEFT Radiology Routine Malignant neoplasm of upper-outer quadrant of left breast in female, estrogen receptor positive (HCC) 1 Occurrences starting 02/03/2023 until 03/04/2024 [facility] Work Phone: Comment on above: 1 Occurrences starti ng 02/03/2023 until 03/04/2024 End: 03-04-2024 NM INJ SENTINEL NODE BREAST LEFT NM INJ SENTINEL NODE BREAST LEFT Radiology Routine Malignant neoplasm of upper-outer quadrant of left breast in female, estrogen receptor positive (HCC) 1 Occurrences starting 02/03/2023 until 03/04/2024 [facility] Work Phone: Comment on above: 1 Occurrences starti ng 02/03/2023 until 03/04/2024 SURGICAL PATHOLOGY [facility] Work Phone: Comment on above: Release Upon Orderin g for 1 Occurrences starting 01/28/2023, 1 completed End: 02-20-2024 US BIOPSY BREAST LEFT US BIOPSY BREAST LEFT Radiology Routine Abnormal finding on radiological examination of breast 1 Occurrences starting 01/21/2023 until 02/20/2024 [facility] Work Phone: Comment on above: 1 Occurrences starti ng 01/21/2023 until 02/20/2024 End: 07-31-2023 US Thyroid gland [facility] Service Area Work Phone: Comment on above: Once for 1 Occurrenc es starting 07/31/2023 until 07/31/2023 Vascular US lower extremity venous duplex left Vascular US lower extremity venous duplex left CV Vascular Ultrasound STAT Malignant neoplasm of upper-outer quadrant of left breast in female, estrogen receptor positive (HCC) Localized edema 06/03/2023 3:[address] [facility] Work Phone: [facility] Work Phone: [facility] NEGATED: Highlighted row has been ruled out! Planned Goals not documented [facility] Work Phone: Immunizations Immunization Date Immunization Notes Care Provider [facility] 03-12-2024 influenza, high dose seasonal, preservative-free Leonardo Stanec DO Work Phone: [facility] 03-12-2024 influenza virus vaccine, unspecified formulation Sara Ramey APRN.GRANT ADMINISTRATOR Work Phone: [facility] 09-02-2023 tetanus toxoid, redu allegra diphtheria toxoid, and acellular pertussis vaccine, adsorbed Leonardo Stanec DO Work Phone: [facility] 03-13-2023 influenza virus vaccine, unspecified formulation Chair [address] [place] [address] 03-03-2023 Flu vaccine, quadrivalent, high-dose, preservative free, age 65y+ (FLUZONE) Marie Devi MD Work Phone: [facility] Work Phone: 03-03-2023 influenza virus vaccine, unspecified formulation Torrie Choi MD Work Phone: [facility] 02-27-2023 zoster vaccine recombinant Marie Devi MD Work Phone: [facility] Work Phone: 07-17-2022 Fluzone High-Dose Quadrivalent 0.7 ML Intramuscular Suspension Prefilled Syringe; Translations: [Fluzone High-Dose Quadrivalent 0.7 ML Intramuscular Suspension Prefilled Syringe] Marie Devi Work Phone: [facility] Work Phone: Comment on above: Series: 07-17-2022 influenza, high dose seasonal, preservative-free Marie Devi MD Work Phone: [facility] Work Phone: 07-17-2022 zoster vaccine recombinant Dara Sorensen DO Work Phone: [facility] Work Phone: 07-17-2022 influenza virus vaccine, unspecified formulation Marie Devi MD Work Phone: [facility] Work Phone: 07-12-2021 Fluzone High-Dose Quadrivalent 0.7 ML Intramuscular Suspension Prefilled Syringe; Translations: [Fluzone High-Dose Quadrivalent 0.7 ML Intramuscular Suspension Prefilled Syringe] Marie Devi Work Phone: [facility] Work Phone: Comment on above: Series: 07-12-2021 influenza, high dose seasonal, preservative-free Marie Devi MD Work Phone: [facility] Work Phone: 07-12-2021 influenza, seasonal, injectable Dara Ahmadisarah DO Work Phone: [facility] Work Phone: 07-12-2021 influenza virus vaccine, unspecified formulation Dara Sorensen DO Work Phone: [facility] Work Phone: 06-06-2021 Moderna COVID-19 Vaccine 100 MCG/0.5ML Intramuscular Suspension Marie Devi Work Phone: [facility] Work Phone: 10-14-2020 Moderna COVID-19 Vaccine 100 MCG/0.5ML Intramuscular Suspension Marie Devi Work Phone: [facility] Work Phone: 09-16-2020 Moderna COVID-19 Vaccine 100 MCG/0.5ML Intramuscular Suspension Sebastián Shandra Work Phone: [facility] Work Phone: 07-06-2019 influenza, high dose seasonal, preservative-free; Translations: [Fluzone High-Dose 0.5 ML Intramuscular Suspension Prefilled Syringe] Marie Devi [facility] Work Phone: Comment on above: Series: 07-06-2019 influenza virus vaccine, unspecified formulation Dara Sorensen DO Work Phone: [facility] Work Phone: 06-26-2018 influenza, high dose seasonal, preservative-free; Translations: [Fluzone High-Dose 0.5 ML Intramuscular Suspension Prefilled Syringe] Marie Devi [facility] Work Phone: Comment on above: Series: 06-10-2017 influenza, high dose seasonal, preservative-free; Translations: [Fluzone High-Dose 0.5 ML Intramuscular Suspension Prefilled Syringe] Marie Devi [facility] Work Phone: Comment on above: Series: 05-23-2016 influenza, seasonal, injectable Dara Sorensen DO Work Phone: [facility] Work Phone: 05-23-2016 influenza, injectabl e, quadrivalent, preservative free; Translations: [Fluarix Quadrivalent 0.5 ML Intramuscular Suspension Prefilled Syringe] [facility] Work Phone: Comment on above: Series: 05-31-2015 pneumococcal conjuga te vaccine, 13 valent; Translations: [Prevnar 13 Intramuscular Suspension] Marie Devi [facility] Work Phone: Comment on above: Series: 04-05-2015 influenza virus vaccine, unspecified formulation Dara Sorensen DO Work Phone: [facility] Work Phone: 06-01-2014 influenza, seasonal, injectable Dara Mesko DO Work Phone: [facility] Work Phone: 06-01-2014 influenza, injectabl e, quadrivalent, preservative free; Translations: [Fluzone Quadrivalent 0.5 ML Intramuscular Suspension] Marie Devi [facility] Work Phone: Comment on above: Series: 05-27-2013 influenza virus vaccine, unspecified formulation Marie Devi Work Phone: [facility] Work Phone: Comment on above: Series: 05-27-2013 influenza, seasonal, injectable Dara Sorensen DO Work Phone: [facility] Work Phone: 05-27-2013 influenza, seasonal, injectable Marie Devi [facility] Work Phone: 04-03-2012 influenza, seasonal, injectable Dara Sorensen DO Work Phone: [facility] Work Phone: 04-02-2012 influenza virus vaccine, unspecified formulation Marie Devi Work Phone: [facility] Work Phone: Comment on above: Series: 04-02-2012 influenza, seasonal, injectable Marie Devi [facility] Work Phone: 07-31-2010 influenza virus vaccine, unspecified formulation Marie Devi Work Phone: [facility] Work Phone: Comment on above: Series: 07-31-2010 pneumococcal polysaccharide vaccine, 23 valent Marie Devi Work Phone: [facility] Work Phone: Comment on above: Series: 07-31-2010 pneumococcal vaccine , unspecified formulation Marie Devi Work Phone: [facility] Work Phone: 07-31-2010 influenza, seasonal, injectable Marie Devi [facility] Work Phone: 07-31-2010 pneumococcal polysaccharide vaccine, [address] [facility] Work Phone: influenza virus vaccine, unspecified formulation [facility] Dev[facility] Work Phone: Comment on above: Approx 05Apr2015 Ser ies: influenza, seasonal, injectable Marie Devi [facility] Work Phone: Comment on above: Approx 05Apr2015 Payers Date Payer Category Payer Self-pay 2019 Medicare HMO [employer] MEDICARE [id number] 2013 Medicare [employer] MEDICARE [facility] [id number] 2013-Present [phone] [place] [address] [id number] 2013 Medicare [id number] 2013 Medicare (Managed Care) 1.2. [id number] 2013 Private Health Insurance [id number] 1945 Unknown [id number] [id number] 1945 Unknown [id number] [id number] 1945 Unknown [id number] [id number] 1945 Unknown [id number] [id number] 1945 Unknown [id number] [id number] 1945 Unknown [id number] [id number] 1945 Unknown [id number] [id number] 1945 Unknown [id number] 2.4 1945 Unknown [id number] [id number] Unknown Unknown [id number] [id number] Unknown [id number] [id number] Social History Date Type Detail Facility Start: 10-29-2022 End: 11-27-2022 Never a smoker Never a smoker [facility] Start: 10-24-2022 End: 01-03-2025 Tobacco smoking status COIS Never smoked tobacco [facility] Start: 01-17-2020 End: 01-03-2025 Alcohol intake Current non-drinker of alcohol (finding) [facility] Start: 1945 Sex Assigned At Not on file [facility] Start: 09-11-2021 End: 09-17-2024 Exposure to SARS-CoV-2 (event) Not sure [facility] Start: 10-24-2022 End: 01-03-2025 Tobacco use and exposure Smokeless tobacco non-user [facility] Work Phone: Start: 10-29-2022 End: 11-27-2022 Gender identity Not on file [facility] National Score (1-100), lower number is lower risk 51 [facility] Start: 01-23-2023 End: 09-17-2024 Alcohol intake Ex-drinker (finding) [facility] Work Phone: How often to you hav e a drink containing alcohol? Never [facility] Has the electric, gas, oil, or water company threatened to shut off services in your home in past 12Mo No [facility] (I/We) worried whether (my/our) food would run out before (I/we) got money to buy more. Never true [facility] How often do you nee d to have someone help you when you read instructions, pamphlets, or other written material from your doctor or pharmacy [SILS] Patient unable to respond [facility] Work Phone: Start: 02-27-2023 Sex Female (finding) [facility] How often do you nee d to have someone help you when you read instructions, pamphlets, or other written material from your doctor or pharmacy [SILS] Always [facility] Work Phone: History of tobacco use Passive smoker [facility] NEGATED: Highlighted row - - [facility] Work Phone: NEGATED: Highlighted rowStart: SHEA History of tobacco use Passive smoker [facility] Work Phone: Functional Status Date Assessment Result Facility 09-17-2024 Generalized anxiety disorder 7 item (CLIFTON-7) [facility] Work Phone: 09-17-2024 Patient Health Questionnaire 2 item (PHQ-2) [Reported] [facility] Work Phone: 09-17-2024 PHQ-9 quick depressi on assessment panel [Reported.PHQ] [facility] Work Phone: 10-14-2023 Are you deaf, or do you have serious difficulty hearing No 10/14/2023 3:43 PM EDT Claudia Carter LPN No [facility] 10-14-2023 Are you blind, or do you have serious difficulty seeing, even when wearing glasses No 10/14/2023 3:43 PM EDT Claudia Carter LPN No [facility] 10-14-2023 Do you have serious difficulty walking or climbing stairs Yes 10/14/2023 3:43 PM EDT Claudia Carter LPN Yes [facility] 10-14-2023 Do you have difficul ty dressing or bathing Yes 10/14/2023 3:43 PM EDT Claudia Carter LPN Yes [facility] 10-14-2023 Because of a physica l, mental, or emotional condition, do you have difficulty doing errands alone such as visiting a physician's office or shopping Yes 10/14/2023 3:43 PM EDT Claudia Carter LPN Yes [facility] Work Phone: NEGATED: Highlighted row Functional performance Functional status health issues are not documented Disease [facility] Work Phone: Mental Status Date Assessment Result Facility 10-14-2023 Because of a physical, mental, or emotional condition, do you have serious difficulty concentrating, remembering, or making decisions Yes 10/14/2023 3:43 PM EDT Claudia Carter LPN Yes [facility] NEGATED: Highlighted row Cognitive function [Interpretation] Cognitive status health issues are not documented [facility] Work Phone: Clinical Notes 07-13-2020 to 01-07-2025 Telephone Encounter - Kya Gautam RN - 01/07/2025 3:16 PM EDTTelephone Encounter - Kya Gautam RN - 01/07/2025 3:16 PM EDTTelephone Encounter - Kya Gautam RN - 01/07/2025 2:27 PM EDT Note Date & Type Note Facility 01-07-2025 Telephone encounter Note Situation: Called and spoke with Daughter. Background: Per message received from ALLI Ramey: I don't think that's related to the gabapentin being tapered, the dosage is so small, unless it was helping protect her from seizures. They can go back to her prior dose to make sure but she likely needs infectious workup or going to ED if providers at her SNF are noticing a dramatic change". Assessment: Read Daughter ALLI Ramey's message. Daughter responded, "Ok, so, there's one more doctor call that is outstanding around another med (Daughter would like to hear back from). They (SNF) don't think it's a UTI. So, she (ALLI Ramey) is suggesting just keep the dose the same and go to ED?" This RN responded, clarifying, while ALLI Ramey does not think symptoms are related to gabapentin frequency decrease, she does state can go back to her prior dose to make sure", in other words, return to twice daily frequency to determine if her symptoms improve. Daughter verbalized understanding. This RN then reiterated ALLI Ramey's concern that symptoms may likely be more related to possible infection, for example, and that proceeding to Emergency for evaluation should be a consideration, as well. Daughter verbalized understanding. After further discussion, including informing Daughter of ALLI Ramey's note from 01/03/2025 ("Can consider tapering off gabapentin in the future if headaches improved. Consider headache clinic referral if worsening. Continue gabapentin 100mg BID for now."), Daughter surprised and unsure why patient was tapered / who initiated taper. This RN reviewed After Visit Summary, which does not include this note regarding possible future gabapentin taper, and only notes gabapentin in med list - still as twice daily frequency. Daughter appreciative of help and stated she would connect with SNF to determine how frequency change happened, inform to return to twice daily frequency, and inform to consider ED for infection evaluation. Daughter denied further questions. Recommendation: Encounter routed to provider for her information. [facility] 01-07-2025 Miscellaneous Notes Situation: Called and spoke with Daughter. Background: Per message received from ALLI Ramey: I don't think that's related to the gabapentin being tapered, the dosage is so small, unless it was helping protect her from seizures. They can go back to her prior dose to make sure but she likely needs infectious workup or going to ED if providers at her SNF are noticing a dramatic change". Assessment: Read Daughter ALLI Ramey's message. Daughter responded, "Ok, so, there's one more doctor call that is outstanding around another med (Daughter would like to hear back from). They (SNF) don't think it's a UTI. So, she (ALLI Ramey) is suggesting just keep the dose the same and go to ED?" This RN responded, clarifying, while ALLI Ramey does not think symptoms are related to gabapentin frequency decrease, she does state can go back to her prior dose to make sure", in other words, return to twice daily frequency to determine if her symptoms improve. Daughter verbalized understanding. This RN then reiterated ALLI Ramey's concern that symptoms may likely be more related to possible infection, for example, and that proceeding to Emergency for evaluation should be a consideration, as well. Daughter verbalized understanding. After further discussion, including informing Daughter of ALLI Ramey's note from [facility] 01/03/2025 ("Can consider tapering off gabapentin in the future if headaches improved. Consider headache clinic referral if worsening. Continue gabapentin 100mg BID for now."), Daughter surprised and unsure why patient was tapered / who initiated taper. This RN reviewed After Visit Summary, which does not include this note regarding possible future gabapentin taper, and only notes gabapentin in med list - still as twice daily frequency. Daughter appreciative of help and stated she would connect with SNF to determine how frequency change happened, inform to return to twice daily frequency, and inform to consider ED for infection evaluation. Daughter denied further questions. Recommendation: Encounter routed to provider for her information. Situation: Called and spoke with patient's Daughter, Stevie, to clarify message received. Background: Please see previous documentation within this encounter. Assessment: Daughter informs this RN message is regarding gabapentin. Daughter states, "We met with Sara on Friday and she had said well maybe what we do is start to reduce it to see how she responds to see if it is still needed/not needed." (As opposed to stopping medication altogether). Daughter adds, "On Friday, they took her from 2 (tablets per day) to 1 (tablet per day). Today she is extra sleepy, refusing to take meds, hallucinating, exhibiting really unusual behavior we don't see ever." Daughter asks, "Should she be put back on full dosage she was put on in hospital, or is this normal/expected with dose reduction?" Recommendation: Encounter routed to provider for review. CV PHONE Name of caller : Stevie Relationship to patient : Daughter If not self Will need patient permission to release results or disclose health information with called documented in fyi. Patient identified by Name and Date of . ( Madiha Perales, 1945). Yes Number to return call [phone] Reason for Call: Patient Question/Update: Patient's daughter calling because since dosage change patient has been way more confused, daughter wondering if it should be once a day or twice a day. Thank you calling [facility] [place]. You will receive a return call within 48 hours ( or 2 business days if close to the weekend). If you feel that this is an urgent issue and needs immediate attention, it is recommended that you contact your primary care provider office or proceed to your nearest Urgent Care Center of Emergency Room ED for evaluation/treatment. documented in this encounter [facility] 01-07-2025 Telephone encounter Note Situation: Called and spoke with patient's Daughter, Stevie, to clarify message received. Background: Please see previous documentation within this encounter. Assessment: Daughter informs this RN message is regarding gabapentin. Daughter states, "We met with Sara on Friday and she had said well maybe what we do is start to reduce it to see how she responds to see if it is still needed/not needed." (As opposed to stopping medication altogether). Daughter adds, "On Friday, they took her from 2 (tablets per day) to 1 (tablet per day). Today she is extra sleepy, refusing to take meds, hallucinating, exhibiting really unusual behavior we don't see ever." Daughter asks, "Should she be put back on full dosage she was put on in hospital, or is this normal/expected with dose reduction?" Recommendation: Encounter routed to provider for review. [facility] 01-07-2025 Telephone encounter Note CV PHONE Name of caller : Stevie Relationship to patient : Daughter If not self Will need patient permission to release results or disclose health information with called documented in fyi. Patient identified by Name and Date of . ( Madiha Perales, 1945). Yes Number to return call [phone] Reason for Call: Patient Question/Update: Patient's daughter calling because since dosage change patient has been way more confused, daughter wondering if it should be once a day or twice a day. Thank you calling [facility]. You will receive a return call within 48 hours ( or 2 business days if close to the weekend). If you feel that this is an urgent issue and needs immediate attention, it is recommended that you contact your primary care provider office or proceed to your nearest Urgent Care Center [facility] Emergency Room ED for evaluation/treatment. [facility] 01-03-2025 Instructions Sara Ramey APRN.GRANT ADMINISTRATOR - 01/03/2025 11:24 AM EDT Images from the original note were not included. Regarding your visit with Nurse Practitioner Sara Ramey today at the [facility] we discussed the following: Impression: Altered mental status. Possible area of DWI change in left mesial temporal lobe, possibly represents acute infarct vs artifact. She also had abnormal EEG which could also suggest seizures. Earl of encephalomalacia an gliosis in left parietal lobe, right parietal/occipital lobe. 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 Etiology was possibly CAA, but seemed unlikely at the time Silent cerebral microhemorrhages Abnormal EEG - prior ICH increases risk of seizure activity Recommendations: Schedule follow up with Epilepsy. Call [phone] Continue nathen Will review imaging with Staff to determine if prior ischemic stroke, in which case would consider starting a baby aspirin. Will call Stevie with the outcome. No changes for now Continue monitoring blood pressure for goal below 130/80. LDL goal below 70 Follow up based on the above -Regular follow up with primary care doctor for health maintenance -Assist ensuring blood pressure and cholesterol are at goal -Screen and manage diabetes -Lifestyle modification -- Establish goals -Diet -Regular Exercise as discussed -Establish weight goals with primary care doctor -Additional stroke reduction measures and stroke warning signs are listed below. Please do not hesitate to call if you have any questions Sara Ramey, [facility] [place] Nurse Practitioner [place] [address] Office: [phone] Appointments: [phone] Stroke Signs and Symptoms: *Stroke is a medical emergency. Know the warning signs of stroke: Sudden numbness or weakness of the face, arm or leg, especially on one side of the body Sudden confusion, trouble speaking, or understanding Sudden trouble seeing in one eye, or both eyes Sudden trouble walking, dizziness, loss of balance, or coordination Sudden severe headache with no known cause *If you, or someone with you, has one or more of these signs, don't delay! Immediately call 911, or the emergency medical services (EMS) number so an ambulance can be sent for you. Also, check the time so that you will know when the symptoms first appeared. It is very important to take immediate action, every second counts. Medical treatment may be available if action is taken early enough. ~~~~~~~~~~~~~~~~~~~~~~~~~~~~~~~~~~ ~~~~~~~~~~~~~~~~~~~~~~~~~~~~~~~~~~ ~~~~ General Guidelines to Help Reduce Risk of Recurrent Stroke Blood Pressure Management: Blood Pressure reduction is recommended for both prevention of recurrent stroke and prevention of other vascular events in persons who have had an ischemic stroke or TIA and are beyond the first 24 hours. Several lifestyle modifications have been associated with BP reduction and are a reasonable part of a comprehensive antihypertensive therapy. These modifications include: - salt restriction (less than 2 grams per day) - weight loss - consumption of a diet rich in fruits, vegetables, and low-fat dairy products - regular aerobic physical activity - limited alcohol consumption Goal: Prehypertension (BP less than 130/80 mm Hg): - Perform annual BP screening and lifestyle modifications Hypertension: (BP greater than or equal to 130/80 mm Hg) - Combine medications with above lifestyle modifications to reach your goal blood pressure as defined above. - Monitor your blood pressure at home regularly to ensure you are reaching your goals Diabetes Mellitus: - the goal for glycemic control should be individualized based on the risk for adverse events, patient characteristics and preferences, and, for most patients with diabetes, achieving a goal of HbA1c <=7% is recommended to reduce risk for microvascular complications. - treatment of diabetes should include glucose-lowering medications with proven cardiovascular benefit to reduce the risk for future major adverse cardiovascular events (eg, stroke, heart attack) Cholesterol and Lipid Management - Statin (rosuvastatin or atorvastatin) therapy with intensive lipid-lowering effects is recommended to reduce risk of stroke and cardiovascular events among patients with ischemic stroke or TIA who have LDL cholesterol > 100 mg/dL, or evidence of atherosclerosis. - A goal of LDL cholesterol < 70 mg/dL for stroke or TIA patients on lipid lowering therapy is recommended. - Ezetimibe in combination with statin therapy to lower the LDL cholesterol < 70 mg/DL is recommended, if statin therapy alone is insufficient to attain this treatment target. - For patients with ischemic stroke at very high risk, already taking maximally tolerated statin and ezetimibe and still have an LDL cholesterol > 70 mg/dL, it is reasonable to treat with a proprotein convertase subtilisin/kexin type 9 (PCSK9) inhibitor to prevent atherosclerotic cardiovascular or cerebrovascular events. - In patients with ischemic stroke or TIA, with fasting triglycerides 135 to 499 mg/dL and LDL cholesterol of 41 to 100 mg/dL, on moderate- or high-intensity statin therapy, with HbA1c <10%, and with no history of pancreatitis, atrial fibrillation, or severe heart failure, treatment with icosapent ethyl (IPE) 2 g twice a day is reasonable to reduce risk of recurrent stroke Diet: - Reduced sodium and increased potassium intake; DASH-style diet rich in fruits and vegetables (https://www.nhlbi.nih.gov/educati on/vgyp-lysxje-akdt) - Consider Mediterranean diet supplemented with nuts Smoking and Tobacco Use: - Strongly recommend smoking and tobacco use cessation to reduce risk of stroke. - Counseling, nicotine products, and oral smoking cessation medications are effective for helping smokers quit and can be provided if needed. Alcohol Consumption: - Patients with ischemic stroke or TIA who drink greater than or equal to 2 alcoholic drinks a day, should eliminate alcohol use or reduce their consumption of alcohol to less than equal to 1 alcohol drink per day to reduce stroke risk Exercise - In patients with stroke or TIA who are capable of physical activity, engaging in at least moderate-intensity aerobic activity for a minimum of 10 minutes 4 times a week or vigorous-intensity aerobic activity for a minimum of 20 minutes twice a week is indicated to lower the risk of recurrent stroke - In patients with deficits after stroke that impair their ability to exercise, supervision of an exercise program by a health primary care physician such as a physical therapist or cardiac rehabilitation professional, in addition to routine rehabilitation, can be beneficial for secondary stroke prevention - In individuals with stroke or TIA who sit for long periods of uninterrupted time during the day, it may be reasonable to recommend breaking up sedentary time with intervals as short as 3 minutes of standing or light exercise every 30 minutes for their cardiovascular health Adapted from the [place] [employer]/[place] St[employer] Association: 202 Guideline for the Prevention of Stroke in Patients With Stroke and Transient Ischemic Attack documented in this encounter [facility] 01-03-2025 History of Present illness Narrative Images from the original note were not included. [facility] Established Visit Consultation is requested by: Racheal De La Rosa [address] [facility] [id number] PCP: Marie Devi [address] [place] [address] CEREBROVASCULAR HISTORY Madiha Perales is a 79 year old female presenting for hospital discharge follow up. Admitted to [facility] 12/03-12/10/24. From discharge summary Patient at baseline Parkinson disease, she was [...] experiencing any more concerns or worsening symptoms. Reason for Visit: spells of neurologic dysfunction Date of Last Event: 12/03/2024 Residual Deficits: Cognitive impairments Current PT/OT/ST: Physical therapy at home, Occupational therapy at home and Speech therapy at home Current Living Situation: Still in a rehab facility Office Visit 01/03/25 -presents for hospital discharge follow up with her , daughter, and son -denies any new stroke-like symptoms or clinical events -back to her baseline -day of event: per she was awake and alert but not responding to him, he was trying to get her in the car for something and had a hard time, took her to the ED. Per daughter, once she arrived the patient seemed lethargic but perked up after receiving IV fluids. Once on the floor, mental status seemed to decline once more, then improved again after IV fluids -they report they've had ongoing difficulty getting her to drink fluids on her own, have tried many different kinds of electrolyte drinks. They are currently doing electrolyte jello -gets therapy at [facility] -she has fluctuating mental status and physical capabilities -in hospital was started on Keppra due to potential epileptogenicity on EEG -needs to see Epilepsy clinic -overall happy disposition -denies any side effects to keppra including drowsiness, dizziness, irritability -has only complained of one headache since discharge -taking gabapentin BID -no GCA on temporal artery biopsy -follows with a Neurologist at [facility] PAST MEDICAL HISTORY Diagnosis Date Anemia Anxiety and depression 02/05/2023 Breast calcifications on mammogram 07/24/2013 Cancer (HCC) uterine Fever in adult 06/05/2023 Obesity, Class I, BMI 30-34.9 10/08/2023 MACRY on CPAP MARCY on CPAP 02/05/2023 PMH [...] Social History Tobacco Use Smoking status: Never Passive exposure: Past Smokeless tobacco: Never Vaping Use Vaping status: Never Used Substance Use Topics Alcohol use: No Drug use: No MEDICATIONS Current Outpatient Medications Medication Sig senna (SENOKOT) 8.6 mg tab Take 17.2 mg by mouth. acetaminophen (TYLENOL) 325 mg tablet Take 650 mg by mouth every 6 hours as needed. polyethylene glycol 3350 17 gram packet Take 17 g by mouth. gabapentin (NEURONTIN) 100 mg capsule Take 1 capsule by mouth every 12 hours for 30 days. levETIRAcetam (KEPPRA) 500 mg tablet Take 1 tablet by mouth two times a day. anastrozole (ARIMIDEX) 1 mg tablet Take 1 mg by mouth once daily. Patient takes this at 8pm memantine (NAMENDA) 10 mg tablet Take 10 mg by mouth once daily. ondansetron (ZOFRAN) 8 mg tablet Take 8 mg by mouth every 8 hours as needed for nausea/vomiting. Multivitamin capsule [...] 10 am, 3 pm, and 8 pm famotidine (PEPCID) 20 mg tablet Take 20 mg by mouth once daily. losartan (COZAAR) 50 mg tablet Take 50 mg by mouth once daily. (Patient not taking: Reported on 01/03/2025) predniSONE (DELTASONE) 20 mg tablet Take 3 tablets by mouth once daily. (Patient not taking: Reported on 01/03/2025) prochlorperazine (COMPAZINE) 10 mg tablet Take 10 mg by mouth every 6 hours as needed for nausea/vomiting. (Patient not taking: Reported on 01/03/2025) No current facility-administered medications for this visit. ALLERGIES ALLERGIES Allergen Reactions Alendronic Acid Unknown Asa [Salicylates] Unknown Cephalexin Unknown Lyrica [Pregabalin] Unknown Mri Contrast [Iodin* Hives Hives x 5 locations, redness of right eye. Nickel Unknown Penicillins Unknown PHYSICAL EXAMINATION BP 103/71 (BP Site: Left Arm, BP Position: Sitting, BP Cuff Size: Regular Adult) Pulse 76 Resp 16 Wt 93.4 kg (206 lb) BMI 33.25 kg/m General: Well-developed, well-nourished, in no acute distress. HEENT: Normocephalic, atraumatic. Sclerae anicteric. Oropharynx clear. Neck: No JVD Heart: Skin well-perfused. Lungs: Breathing comfortably on room air. Extremities: No edema, cyanosis, or clubbing. Skin: No rash or ecchymoses. Neurological: Awake, alert, oriented to self. Speech fluent, no dysarthria. Recall impaired, comprehension intact. Fair attention and insight into illness. Cranial Nerves: Extraocular movements intact without nystagmus. Visual santoro full. Facial movements normal and symmetric. Motor: Normal bulk and tone. Strength 5/5 throughout. No pronator drift or tremor. Sensation: Intact light touch. Gait: deferred, in wheelchair LABS Cholesterol: Cholesterol, Total (mg/dL) Date Value 05/07/2010 121 Total Cholesterol, Nonfasting (mg/dL) Date Value 12/03/2024 152 LDL Cholesterol, Calculated (mg/dL) Date Value 05/07/2010 59 LDL Cholesterol Calculated, Nonfasting (mg/dL) Date Value 12/03/2024 84 HDL Cholesterol (mg/dL) Date Value 05/07/2010 49 HDL Cholesterol, Nonfasting (mg/dL) Date Value 12/03/2024 54 Triglyceride (mg/dL) Date Value 05/07/2010 64 Triglycerides, Nonfasting (mg/dL) Date Value 12/03/2024 70 Diabetes: Hemoglobin A1C (%) Date Value 05/07/[address] brain 12/03/24 IMPRESSION: No evidence of acute large territorial infarct or acute intracranial hemorrhage. Extensive chronic microvascular ischemic changes and multifocal areas of encephalomalacia, as discussed. A small focus of encephalomalacia within the right temporal lobe is new from 10/08/2023. Significant supratentorial ventriculomegaly, similar or minimally increased since 10/08/2023 and definitively increased since 01/17/2020, which could reflect progressive central white matter volume loss or normal pressure/communicating hydrocephalus. MRI brain 12/03/24 IMPRESSION: No evidence of acute infarct. Extensive chronic changes as detailed. CT brain 12/07/24 IMPRESSION: Marked sinusitis. No other significant interval change. No intracranial mass effect or hemorrhage. MRA brain 12/08/24 IMPRESSION: Patent intracranial arterial vasculature. MRV brain 12/09/24 IMPRESSION: Patent dural venous sinuses without significant focal narrowing or intraluminal filling defects. Patient Entered Questionnaires PROMIS/NeuroQoL Score Percentiles Percentiles provide an indication of how a patient's score ranks in relation to the [place] general population. > 31st percentile is within normal limits or better * < 31st percentile is at least SD worse than population, which may be clinically relevant < 16th percentile is at least 1 SD worse than population and warrants attention Depression Screenin06/18/2010 PHQ-9 Score 0 Self-Harm Response Not at all Proxy-reported PHQ-9 Scores: PHQ-9 Self-Harm (Item 9) Response: 0 - 9 No to Mild depression 0 - Not at all 10 - 14 Moderate depression 1 - Several Days > 15 Severe depression 2 - More than half the days 3 - Nearly every day Stroke Mechanism and Scales NIH Stroke Scale: LOC: 0 LOC Questions: 1 LOC Commands: 0 LOC Normal Gaze: 0 Visual Santoro: 0 Facial Palsy: 0 Motor Left Arm: 0 Motor Right Arm: 0 Motor Left Le Motor Right Le Limb Ataxia: 0 Sensory: 0 Language: 0 Dysarthria: 0 Extinction/Neglect: 0 Total Daily NIHSS: 1 IMPRESSION Altered mental status. Possible area of DWI change in left mesial temporal lobe, possibly represents acute infarct vs artifact. She also had abnormal EEG which could also suggest seizures. Earl of encephalomalacia an gliosis in left parietal lobe, right parietal/occipital lobe. 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 Etiology was possibly CAA, but seemed unlikely at the time Silent cerebral microhemorrhages Abnormal EEG - prior ICH increases risk of seizure activity Headache - currently well controlled on gabapentin 100mg BID, probably occipital neuralgia PLAN Schedule follow up with Epilepsy Continue nathen Will review imaging with Staff to determine if prior ischemic stroke, in which case would consider starting a baby aspirin, additional stroke workup. Will call Stevie with the outcome, with patient's permission. No changes for now Consider follow up MRI brain in 1 year to follow up microhemorrhages, monitor for CAA-RI Can consider tapering off gabapentin in the future if headaches improved. Consider headache clinic referral if worsening. Continue gabapentin 100mg BID for now. Continue monitoring blood pressure for goal below 130/80. LDL goal below 70 Follow up based on the above Medical Decision Making: Medical Decision Making Level: 1 - N/A I spent a total of 46 minutes on the date of service which included preparing to see the patient, [id number] patient care, completing clinical documentation, obtaining and/or reviewing separately obtained history, performing a medically appropriate examination, counseling and educating the patient/family/caregiver, communicating with other HCPs (not separately reported), independently interpreting results (not separately reported), communicating results to the patient/family/caregiver, and care coordination (not separately reported) SIGNATURE Sara Ramey APRN.GRANT ADMINISTRATOR CC [address] [place] [id number] Marie Devi [facility] [place] [id number] documented in this encounter [facility] 01-03-2025 Note HNO ID: [id number] Author: SARA RAMEY APRN.CNP Service: ? Author Type: Nurse Practitioner Type: Progress Notes Filed: 01/07/2025 09:07 Note Text: [facility] Established Visit Consultation is requested by: Racheal Diaz [place] [id number] PCP: [place] [phone] CEREBROVASCULAR HISTORY Madiha Perales is a 79 year old female presenting for hospital discharge follow up. Admitted to [facility] 12/03-12/10/24. From discharge summary Patient at baseline Parkinson disease, she was [...] experiencing any more concerns or worsening symptoms. Reason for Visit: spells of neurologic dysfunction Date of Last Event: 12/03/2024 Residual Deficits: Cognitive impairments Current PT/OT/ST: Physical therapy at home, Occupational therapy at home and Speech therapy at home Current Living Situation: Still in a rehab facility Office Visit 01/03/25 -presents for hospital discharge follow up with her , daughter, and son -denies any new stroke-like symptoms or clinical events -back to her baseline -day of event: per she was awake and alert but not responding to him, he was trying to get her in the car for something and had a hard time, took her to the ED. Per daughter, once she arrived the patient seemed lethargic but perked up after receiving IV fluids. Once on the floor, mental status seemed to decline once more, then improved again after IV fluids -they report they've had ongoing difficulty getting her to drink fluids on her own, have tried many different kinds of electrolyte drinks. They are currently doing electrolyte jello -gets therapy at [facility] -she has fluctuating mental status and physical capabilities -in hospital was started on Keppra due to potential epileptogenicity on EEG -needs to see Epilepsy clinic -overall happy disposition -denies any side effects to keppra including drowsiness, dizziness, irritability -has only complained of one headache since discharge -taking gabapentin BID -no GCA on temporal artery biopsy -follows with a Neurologist at [facility] PAST MEDICAL HISTORY Diagnosis Date Anemia Anxiety [...] Brother Hypertension Maternal Grandmother Stroke Maternal Grandfather (more content not included)... [facility] 12-10-2024 Note HNO ID: [id number] Author: SHAW KINSEY MD Service: Hospital Medicine Author Type: Physician Type: Progress Notes Filed: 12/19/2024 08:38 Note Text: Documentation Query Please clarify the significance of the pathology report I agree with the pathology findings dated 12/09/2024 which confirms no arteritis This document will become part of the patient's medical record. [facility] 12-10-2024 Note HNO ID: [id number] Author: JENNIFER CHAUDHRY RN Service: Care Management Author Type: Registered Nurse Type: Care Mgt Progress Note Filed: 12/10/2024 13:32 Note Text: CARE MANAGEMENT DISCHARGE NOTE SERVICE DATE: December 10, 2024 SERVICE TIME: 1:29 PM Admission Date: 12/03/2024 LOS: 2 days Discharge Arrangement Discharge Arrangement: [facility] Facility Was an expedited discharge program used?: No Services Arranged SNF Placement Provider Name: [facility] Caregiver Assessment Caregiver is ready, willing and able to meet the patient's needs as recommended by the inter-professional team: Yes Name of Caregiver: [facility] Transportation Arrangements Transportation Arrangements: Ambulance Transportation Agency and Phone #:: [facility] [phone] Date of Trip: 12/10/24 Time of Trip: 1430 Type of Service: BLS Non-emergency Is Patient Medicaid Pending?: No Was transportation financial coverage discussed with family?: Patient, Family Telephone Operators Supervisor Location: [place] Destination: SNF Handoff Communication: Handoff to: Primary Care Physician Primary Care Physician Name/Phone: Dr Devi SOC sent Additional Information: Per MD patient has been cleared for dc today Patient will dc to [facility] under private pay skilled services at this [...] DATE: December 10, 2024 TIME: 1:29 PM [facility] 12-10-2024 Note HNO ID: [id number] Author: TORRIE CHOI MD Service: General Surgery Author Type: Physician Type: Plan of Care Filed: 12/10/2024 11:57 Note Text: Doing well - wound healing, no hematoma. OK for discharge. Will call with path results. No follow up needed. [facility] 12-09-2024 Note HNO ID: [id number] Author: GREG AGEE JR, MD Service: Neurology [...] pain level of 0. Greg Agee MD [facility] 12-09-2024 Note HNO ID: [id number] Author: SHAW KINSEY MD Service: Hospital Medicine [...] (Src) 98.1 (Oral) Resp 18 Ht 5' 6" (1.68m) Wt 206 lb 5.6 oz (93.6kg) SpO2 97% BMI 33.32 kg/(m2). O2 Therapy: Nasal Cannula, Liters (Numeric Only): 1.00 General: Patient is awake and is in no acute respiratory distress. Lungs: Clear to auscultation, no wheezing, rales, or rhonchi. Cardiac: S1-S2 within normal limits Abdomen: Soft, nontender, nondistended. Extremities: No cyanosis Neurologic: Parkinson disease DATA: LABORATORY TESTS: CBC: Recent Labs 12/08/24 04512/[id number]/246 12/06/24 0758 12/05/24 0517 12/03/24 0803 WBC [...] UKET Negative COAG: No results for input(s): "APTT", "INR" in the last 168 hours. CARDIAC: No results for input(s): "CKMB", "CKMBP", "TROPT", "PBNP" in the last 168 hours. DATA: Diagnostic [...] a sporadic cough (more content not included)... [facility] 12-08-2024 Note HNO ID: [id number] Author: SHAW KINSEY MD Service: Care Management [...] DATE: December 08, 2024 TIME: 2:01 PM [facility] 12-08-2024 Note HNO ID: [id number] Author: SHAW KINSEY MD Service: Hospital Medicine [...] 98.2 (Temporal Artery) Resp 12 Ht 5' 6" (1.68m) Wt 206 lb 5.6 oz (93.6kg) [...] UKET Negative COAG: No results for input(s): "APTT", "INR" in the last 168 hours. CARDIAC: No results for input(s): "CKMB", "CKMBP", "TROPT", "PBNP" in the last 168 hours. DATA: Diagnostic [...] STATUS currently will (more content not included)... [facility] 12-08-2024 Note HNO ID: [id number] Author: LUCIUS DUBOSE PA-C Service: General Surgery Author Type: Physician Clerk Television Production Type: Plan of Care Filed: 12/08/2024 09:23 Note Text: Patient on the OR schedule tomorrow with Dr. Choi for temporal artery biopsy. NPO after midnight for OR. SIGNATURE: Lucius Dubose PA-C PATIENT NAME: Madiha Perales DATE: December 08, 2024 TIME: 9:21 AM [facility] 12-08-2024 Note HNO ID: [id number] Author: JENNIFER CHAUDHRY RN Service: Care Management Author Type: Registered Nurse Type: Care Mgt Progress Note Filed: 12/08/2024 14:05 Note Text: CARE MANAGEMENT PROGRESS NOTE SERVICE DATE: 12/08/2024 SERVICE TIME: 8:21 AM LOS: 0 days Needs Prior to Discharge: Other: See Comment Per [facility] Per medical information specialist at [facility] offer a p2p for SNF pre-cert. P2P needs to be completed by 11:40am on 12/08. P2P phone # [phone] opt. 1 CM updated attending MD 10:30- Per MD P2P completed and upheld CM met with patient, spouse and daughter at bedside to provide update At this time they would like to private pay for SNF Requesting to ask [facility], [facility] and [facility] if they would accept private pay Referrals updated 14:00- CM met with family at bedside and provided update on private pay response from facilities [facility] will accept for SNF under private pay Family agreeable. SOPHIE spoke with sponsorship coordinator Hanna number given for business department to discuss financial piece, SOPHIE provided to daughter Per Hanna she is unable to accept wkend DC Requesting [facility] Family requesting medical transport SIGNATURE: Jennifer Chaudhry RN PATIENT NAME: Madiha Perales DATE: December 08, 2024 TIME: 8:21 AM [facility] 12-07-2024 Note HNO ID: [id number] Author: SHAW KINSEY MD Service: Hospital Medicine [...] (Src) 98.8 (Oral) Resp 18 Ht 5' 6" (1.68m) Wt 206 lb 5.6 oz (93.6kg) SpO2 94% BMI 33.32 kg/(m2). O2 Therapy: Nasal Cannula, Liters (Numeric Only): 1.50 General: Patient is awake and is in no acute respiratory distress. Lungs: Clear to auscultation, no wheezing, rales, or rhonchi. Cardiac: S1-S2 within normal limits Abdomen: Soft, nontender, nondistended. Extremities: No cyanosis Neurologic: Parkinson disease DATA: LABORATORY TESTS: CBC: Recent Labs 12/07/2444512/06/248 12/05/24 0517 12/03/24 0803 WBC 10.27 11.94* 10.02 11.01* HB 13.0 13.5 13.5 14.6 PLT 171 183 182 201 MCV 95.0 93.5 94.3 94.5 NEUTP -- -- 79.2 85.1 ABSNEUT -- -- 7.94* 9.37* LYMPHP -- -- 9.6 7.5 EODINP -- -- 1.3 0.7 CHEM: Recent Labs 12/07/2444512/06/24 0758 12/05/24 0518 NA 141 139 139 [...] UKET Negative COAG: No results for input(s): "APTT", "INR" in the last 168 hours. CARDIAC: No results for input(s): "CKMB", "CKMBP", "TROPT", "PBNP" in the last 168 hours. DATA: Diagnostic [...] CCA DNI *Leno (more content not included)... [facility] 12-07-2024 Note HNO ID: [id number] Author: LUCHO NELSON RN Service: Care Management Author Type: Registered Nurse Type: Care Mgt Progress Note Filed: 12/07/2024 12:28 Note Text: CARE MANAGEMENT PROGRESS NOTE SERVICE DATE: 12/07/2024 SERVICE TIME: 12:27 PM LOS: 0 days Needs Prior to Discharge: Precertification, Discharge Transportation CT ordered for [facility]. CM spoke to karmen Acuna via phone. Confirmed [facility] is FOC and accepting. Precert initiated. Will need dc transport. SIGNATURE: Lucho Nelson RN PATIENT NAME: Madiha Perales DATE: December 07, 2024 TIME: 12:27 PM [facility] 12-06-2024 Note HNO ID: [id number] Author: SHAW KINSEY MD Service: Hospital Medicine [...] (Src) 98.1 (Oral) Resp 18 Ht 5' 6" (1.68m) Wt 206 lb 5.6 oz (93.6kg) [...] UKET Negative COAG: No results for input(s): "APTT", "INR" in the last 168 hours. CARDIAC: No results for input(s): "CKMB", "CKMBP", "TROPT", "PBNP" in the last 168 hours. DATA: Diagnostic [...] using voice evelyne (more content not included)... [facility] 12-06-2024 Note HNO ID: [id number] Author: JENNIFER CHAUDHRY RN Service: Care Management [...] rec SNF Family agreeable with referral to [facility] Per family still reviewing for additional SNF choices 1553- CM met with patient and family [facility] still reviewing Family/patient requesting referrals to [address] [place] [address] to follow up with daughter Stevie Castelan) at [phone] with all SNF responses SIGNATURE: Jennifer Chaudhry RN PATIENT NAME: Madiha Perales DATE: December 06, 2024 TIME: 2:31 PM [place] 12-05-2024 Note HNO ID: [id number] Author: SHAW KINSEY MD Service: Hospital Medicine [...] (Src) 98.6 (Oral) Resp 12 Ht 5' 6" (1.68m) Wt 206 lb 5.6 oz (93.6kg) [...] UKET Negative COAG: No results for input(s): "APTT", "INR" in the last 168 hours. CARDIAC: No results for input(s): "CKMB", "CKMBP", "TROPT", "PBNP" in the last 168 hours. DATA: Diagnostic [...] Shaw Kinsey MD PATIENT NAME: Madiha Perales [place] 12-05-2024 Note HNO ID: [id number] Author: CHARLETTE WITT RN Service: Care Management Author Type: Registered Nurse Type: Care Mgt Initial Assessment Filed: 12/05/2024 11:49 Note Text: CARE MANAGEMENT: ASSESSMENT AND DISCHARGE PLAN SERVICE DATE: December 05, 2024 SERVICE TIME: 09:59 am PCP: Marie Devi MD ([facility]) Primary Contact: Extended Emergency Contact Information Primary Emergency Contact: Stevie Koch Relation: Daughter Secondary Emergency Contact: Marcos Perales Relation: Spouse Admission Status: Observation Insurance Provider: [employer] MEDICARE PPO Discharge Planning requested by: Per Department Practice Potential Transition Plans [facility] Facility/Intermediate Care Facility, To Be Determined Advance Directives Current Advance Directive: Health Care Power of Digital Sales Manager, Living Will In Chart: No Senior Android Developer Attempted to Assist with AD Completion: Yes [...] Be able to go home, Better mobility [place] of Choice Explained: [place] of Choice Given: Yes Level of Care Discussed: [facility] Facility Are you interested in bedside delivery [...] assessment completed with spouse. Patient presented to [place] [facility] c/o confusion. Patient admitted to Observation [...] DATE: December 05, 2024 TIME: 11:44 AM [place] 12-04-2024 Note HNO ID: [id number] Author: SHAW KINSEY MD Service: Hospital Medicine [...] (Src) 99.3 (Axillary) Resp 16 Ht 5' 6" (1.68m) Wt 206 lb 5.6 oz (93.6kg) [...] UKET Negative COAG: No results for input(s): "APTT", "INR" in the last 168 hours. CARDIAC: No results for input(s): "CKMB", "CKMBP", "TROPT", "PBNP" in the last 168 hours. DATA: Diagnostic [...] Shaw Kinsey MD PATIENT NAME: Madiha Perales [place] 12-03-2024 Note SARS-COV-2 (AGENT OF COVID-19) RNA: Not detected INFLUENZA A RNA: Not detected INFLUENZA B RNA: Not detected RESPIRATORY SYNCYTIAL VIRUS (RSV) RNA: Not detected [place] Comment on above: Performed By: #### [id number] ####[facility] [id number] [place], [place] [id number] [place] [address] [facility] 10-10-2024 Evaluation + Plan note Associated Problem(s): Depression with anxiety Currently on Cymbalta, feels like she has a good dose. Has better days where parksinson's isn't as much an issue, but having more an more bad days. - Continue current dose, no changes. [facility] Work Phone: 10-10-2024 Miscellaneous Notes Associated Problem(s): Depression with anxiety Currently on Cymbalta, feels like she has a good dose. Has better days where parksinson's isn't as much an issue, but having more an more bad days. - Continue current dose, no changes. documented in this encounter [facility] Work Phone: 09-17-2024 History of Present illness Narrative Images from the original note were not included. FAMILY MEDICINE ANNUAL MEDICARE WELLNESS VISIT Madiha Perales [id number] 1945 PCP: Leonardo Santos DO Chief Complaint: Chief Complaint Patient presents with Medicare Annual Wellness Visit Subsequent Pt presents for annual MWV- ABN was given to pt and signed, pt verbalized understanding. SUBJECTIVE Madiha Perales is a 79 y.o. Martiniquais-speaking female with pertinent PMHx of Parkinsons, who presents to the clinic for their annual medicare wellness visit. Patient is new to me as PCP, as Dr. Devi left the practice in June. Parkinson - Upted CL to 1.5mg TID -- that is highest - Leg to walk they aren't operating - No tremors - Doesn't - Went to [facility] down in [place] - He usually goes to [facility] - Plan to do that Tues [...] 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CMS-HCC) Nocturnal hypoxemia Obesity (BMI 30.0-34.9) MARCY on [...] 8 pm cholecalciferol (Vitamin D-3) 50 MCG (1999 UT) tablet 1 tablet, oral, Daily DULoxetine (CYMBALTA) [...] Resource Strain: Low Risk (10/17/2023) Received from [facility] Overall Financial Resource Strain (CARDIA) Difficulty of Paying Living Expenses: Not hard at all Food Insecurity: No Food Insecurity (10/17/2023) Received from [facility] Hunger Vital Sign Worried About Running Out of Food in the Last Year: Never true Ran Out of Food in the Last Year: Never true Transportation Needs: No Transportation Needs (11/27/2023) OASIS A1250: Transportation Lack of Transportation (Medical): No Lack of Transportation (Non-Medical): No Patient Unable or Declines to Respond: No Stress: Stress Concern Present (10/28/2023) Received from [facility] [place] of Occupational Health - Occupational Stress Questionnaire Feeling of Stress : Rather much Social Connections: Feeling Socially Integrated (11/27/2023) OASIS D0700: Social Isolation Frequency of experiencing loneliness or isolation: Never Intimate Partner Violence: Patient Unable To Answer (10/15/2023) Received from [facility] Domestic Abuse Assessment Do you feel safe in your relationships at home?: Unable to assess Physical Abuse: Unable to assess Verbal Abuse: Unable to assess Housing Stability: Unknown (10/17/2023) Received from [facility] Housing Stability Vital Sign Unable [...] (98 F) (Temporal) Ht 1.651 m (5' 5") Wt 94 kg (207 lb 4.8 oz) [...] personalized prevention plan. We discussed the [facility] Code Status and patient is: DNR Comfort Care Arrest at this time. Form can be found in media tab, patient has original with them. I recommended they hang the DNR form on the fridge or other place easy to see in their home or in their wallet. We discussed advanced care planning and end of life care. Patient provided blank copy of [facility] Advanced Directives packet, which includes HCPOA and Living Will Declaration. Patient's Advanced Directives are as follows: DNI/DNR Patient instructions with the written plan were provided to the patient. Advance Directives Discussion 16 - 20 minutes were spent discussing Advanced Care Planning (including a Living Will, Medical Power Of Digital Sales Manager, as well as specific end of life [...] 1-dose 75+ series) Never done COVID-19 Vaccine ( - 2023- season) 2024 Medicare Annual Wellness [...] part of this note was constructed with Crystals[employer] dictation software. Leonardo Santos DO, [facility] Office: 09/17/2024 10:15 PM documented in this encounter [facility] Work Phone: 08-10-2024 History of Present illness Narrative Hematology/Oncology Office Visit Oncology History: 1) stage 1A left breast cancer, invasive ductal carcinoma grade 3. ER+ MA+ HER2+. cT1b N0 M0; pT1c N0 M0, diagnosed 01/28/23. - Patient is a 78 yo F who presented with an abnormal screening mammogram of the upper outer quadrant of the left breast on 11/27/22. Diagnostic imaging and ultrasound were performed on 01/21/2023: a 0.9 x 0.9 x 1 cm irregular mass in the left breast. Biopsy was performed at [facility] on 01/28/2023 confirming grade 3 invasive ductal carcinoma ER positive 100%, MA positive 70% and HER2 positive at 3+. The patient underwent lumpectomy and sentinel node removal on 02/18/[address] Choi at [facility]: pathology revealed grade 3 invasive ductal carcinoma measuring 1.9 cm. There was focal DCIS and extensive lymphovascular invasion. Margins were negative for invasive and in situ component at greater than 2 mm. 6 axillary nodes were removed: 5 sentinel and 1 nonsentinel. All were negative. Pathologically staged T1CN0. - she was referred to [facility] for medical and radiation oncology. Her [...] She had a bilateral screening mammogram at [facility] on 03/25/24 which was negative [...] back pain Breast calcifications on mammogram Dementia ([facility]) Depression Eczema H/O colonoscopy Hemorrhoid Hx of rosacea Lower extremity edema MARCY (obstructive sleep apnea) The patient wears CPAP Parkinson disease ([facility]) Stroke ([facility]) 2009 Torn meniscus Uterine cancer ([facility]) ([facility]) 2005 Past Surgical History: Procedure Laterality Date [...] left breast in female, estrogen receptor positive ([facility]) 03/18/2023 Edema of both lower extremities 02/05/2023 Parkinsonism 02/05/2023 Allergic reaction to bee sting 10/29/2022 Allergic rhinitis 10/29/2022 Eczema 10/29/2022 Eczema 10/29/2022 Elevated TSH 10/29/2022 External hemorrhoids 10/29/2022 Hair loss 10/29/2022 Low back pain 10/29/2022 Menopausal state 10/29/2022 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[facility]) 10/29/2022 Mixed anxiety depressive disorder 10/29/2022 Obesity (BMI 30.0-34.9) 10/29/2022 Obstructive sleep apnea syndrome 10/29/2022 Falling 10/29/2022 Seborrheic keratosis 10/29/2022 Rosacea, acne 10/15/2022 Hemangioma of skin and subcutaneous tissue 04/24/2016 Breast calcifications on mammogram 07/24/2013 Cerebrovascular accident (CVA) ([facility]) 06/23/2009 Social History Tobacco Use Smoking status: [...] lb 14.4 oz) Height: 1.651 m (5' 5") ECOG PS = 3 Physical Exam Vitals [...] tomosynthesis 1) stage 1A left breast cancer ER+/MA+/HER2+ pT1c pN0 cM0 s/p left partial mastectomy [...] DO Hematology/Medical Oncology documented in this encounter [facility] 08-02-2024 Telephone encounter Note Refill request received for anastrazole. Prescription pended. [facility] 08-02-2024 Miscellaneous Notes Refill request received for anastrazole. Prescription pended. documented in this encounter [facility] 03-16-2024 History of Present illness Narrative RADIATION ONCOLOGY FOLLOW UP PATIENT: Madiha Perales DATE OF SERVICE: 03/16/2024 : 1945 AGE: 79 y.o. PRIMARY SITE AND HISTOPATHOLOGY: Left breast, grade 3 invasive ductal carcinoma, ER positive, MA positive, HER2 positive. STAGE: cT1b N0 M0, [...] the left breast. Biopsy was performed at [facility] on 01/28/2023. This revealed grade 3 invasive ductal carcinoma measuring at least 8 mm in dimension. ER positive at 100%, MA positive at 70% and HER2 positive at [...] distance. She is undergoing physical therapy at [facility] physical therapy. She denies any breast [...] F (36.5 C) Resp 20 Ht 5' 5" (1.651 m) Wt 201 lb 1.6 oz [...] exam, patient counseling and care coordination. The [facility] Department of Radiation Oncology is an Accredited Facility of the [employer] (ACR). This document was [...] provider for clarification. documented in this encounter [facility] 03-16-2024 Nurse Note The patient is here at [facility] with her for follow up with Dr. Diego. She arrived in a wheelchair. She uses a care or walker at times to ambulate around the house. She does physical therapy at [facility]. She denies pain at the current time. She denies skin issues at the previous site of radiation. Her appetite and sleeping are "good". Her energy level is fair. She is taking Arimidex as prescribed. She is scheduled for her next mammogram in March of 2024. She continues to follow up with Dr. Choi and Dr. Escobedo. [facility] 03-16-2024 Nurse Note The patient is here at [facility] with her for follow up with Dr. Diego. She arrived in a wheelchair. She uses a care or walker at times to ambulate around the house. She does physical therapy at [facility]. She denies pain at the current time. She denies skin issues at the previous site of radiation. Her appetite and sleeping are "good". Her energy level is fair. She is taking Arimidex as prescribed. She is scheduled for her next mammogram in March of 2024. She continues to follow up with Dr. Choi and Dr. Escobedo. documented in this encounter [facility] 02-19-2024 Note HNO ID: [id number] Author: TORRIE CHOI MD Service: ? Author [...] breast in female, estrogen receptor positive (HCC) [facility] Oncology Notes under scanned Documents INTERVAL [...] EXAM: BP 124/84 Pulse 79 Ht 5' 5" (1.65m) Wt 207 lb (93.9kg) SpO2 97% [...] for today's visit: none Torrie Choi MD [facility] 02-19-2024 History of Present illness Narrative [...] breast in female, estrogen receptor positive (HCC) [facility] Oncology Notes under scanned Documents INTERVAL [...] EXAM: BP 124/84 Pulse 79 Ht 5' 5" (1.65m) Wt 207 lb (93.9kg) SpO2 97% [...] Torrie Choi MD documented in this encounter [facility] 02-18-2024 History of Present illness [...] or grammatical errors documented in this encounter [facility] Work Phone: 02-04-2024 Telephone encounter Note Voice message left for patient re order Advised to call office if further questions or concerns. Number provided to call. Encounter closed. [facility] 02-04-2024 Miscellaneous Notes Voice message left for patient re order Advised to call office if further questions or concerns. Number provided to call. Encounter closed. Orders signed. Order placed per patient's request for mammogram and/or breast ultrasound. Routed to provider/MD to approve. Dr. Grubbs's office called to ask when patient needed scheduled for her next mamogram documented in this encounter [facility] 02-04-2024 Telephone encounter Note Orders signed. [facility] Work Phone: 02-03-2024 Telephone encounter Note Order placed per patient's request for mammogram and/or breast ultrasound. Routed to provider/MD to approve. [facility] 02-03-[address] Grubbs's office called to ask when patient needed scheduled for her next mamogram [facility] 02-03-2024 Telephone encounter Note Refill for Arimidex pended to be signed if agreeable. [facility] 02-03-2024 Miscellaneous Notes Refill for Arimidex pended to be signed if agreeable. documented in this encounter [facility] 02-03-2024 History of Present illness Narrative Hematology/Oncology Office Visit Oncology History: 1) stage 1A left breast cancer, invasive ductal carcinoma grade 3. ER+ MA+ HER2+. cT1b N0 M0; pT1c N0 M0, diagnosed 01/28/23. - Patient is a 78 yo F who presented with an abnormal screening mammogram of the upper outer quadrant of the left breast on 11/27/22. Diagnostic imaging and ultrasound were performed on 01/21/2023: a 0.9 x 0.9 x 1 cm irregular mass in the left breast. Biopsy was performed at [facility] on 01/28/2023 confirming grade 3 invasive ductal carcinoma ER positive 100%, MA positive 70% and HER2 positive at 3+. The patient underwent lumpectomy and sentinel node removal on 02/18/[address] Choi at [facility]: pathology revealed grade 3 invasive ductal carcinoma measuring 1.9 cm. There was focal DCIS and extensive lymphovascular invasion. Margins were negative for invasive and in situ component at greater than 2 mm. 6 axillary nodes were removed: 5 sentinel and 1 nonsentinel. All were negative. Pathologically staged T1CN0. - she was referred to [facility] for medical and radiation oncology. Her [...] Hemorrhoid Hx of rosacea Lower extremity edema MRACY (obstructive sleep apnea) The patient wears CPAP Parkinson disease (HCC) Stroke ([facility]) 2009 Torn meniscus Uterine cancer ([facility]/HCC) (HCC) 2005 Past Surgical History: Procedure Laterality [...] calcifications on mammogram 07/24/2013 Cerebrovascular accident (CVA) ([facility]) 06/23/2009 Social History Tobacco Use Smoking status: [...] - 33 mEq/L Final ANION GAP - [facility] 09/23/2023 9.00 -4.00 - 12.00 mmol/L Final UREA NITROGEN - [facility] 09/23/2023 19 7 - 22 mg/dL Final CREATININE - [facility] 09/23/2023 0.8 0.6 - 1.2 mg/dL Final GLUCOSE - [facility] 09/23/2023 133 (H) 73 - 118 mg/dL Final CALCIUM - [facility] 09/23/2023 9.3 8.0 - 10.3 mg/dL Final AST(SGOT) - [facility] 09/23/2023 29 11 - 38 U/L Final ALT - [facility] 09/23/2023 20 10 - 47 U/L Final ALKALINE PHOSPHATASE - [facility] 09/23/2023 83 42 - 141 U/L Final ALBUMIN - [facility] 09/23/2023 3.4 3.3 - 5.5 g/dL Final BILIRUBIN, TOTAL - [facility] 09/23/2023 0.7 0.2 - 1.6 mg/dL Final TOTAL PROTEIN - [facility] 09/23/2023 6.5 6.4 - 8.1 g/dL Final EGFR - [facility] 09/23/2023 76.0 >60.0 mL/min/1.73m*2 Final Imaging [...] (HCC) 1) stage 1A left breast cancer ER+/MA+/HER2+ pT1c pN0 cM0 s/p left partial mastectomy [...] up with Dr. Choi for mammograms at [facility]. Call placed to her office [...] DO Hematology/Medical Oncology documented in this encounter [facility] 11-11-2023 History of Present illness Narrative [...] was improved enough to be discharged to [facility], where she got PT, OT, speech therapy. [...] or grammatical errors documented in this encounter [facility] Work Phone: 11-04-2023 History of Present illness Narrative Hematology/Oncology Office Visit Oncology History: 1) stage 1A left breast cancer, invasive ductal carcinoma grade 3. ER+ MA+ HER2+. cT1b N0 M0; pT1c N0 M0, diagnosed 01/28/23. - Patient is a 78 yo F who presented with an abnormal screening mammogram of the upper outer quadrant of the left breast on 11/27/22. Diagnostic imaging and ultrasound were performed on 01/21/2023: a 0.9 x 0.9 x 1 cm irregular mass in the left breast. Biopsy was performed at [facility] on 01/28/2023 confirming grade 3 invasive ductal carcinoma ER positive 100%, MA positive 70% and HER2 positive at 3+. The patient underwent lumpectomy and sentinel node removal on 02/18/[address] Choi at [facility]: pathology revealed grade 3 invasive ductal carcinoma measuring 1.9 cm. There was focal DCIS and extensive lymphovascular invasion. Margins were negative for invasive and in situ component at greater than 2 mm. 6 axillary nodes were removed: 5 sentinel and 1 nonsentinel. All were negative. Pathologically staged T1CN0. - she was referred to [facility] for medical and radiation oncology. Her [...] patient wears CPAP Parkinson disease (HCC) Stroke ([facility]) 2009 Torn meniscus Uterine cancer ([facility]/HCC) ([facility]) 2005 Past Surgical History: Procedure Laterality Date [...] left breast in female, estrogen receptor positive ([facility]) 03/18/2023 Edema of both lower extremities 02/05/2023 Parkinsonism 02/05/2023 Allergic reaction to bee sting 10/29/2022 Allergic rhinitis 10/29/2022 Eczema 10/29/2022 Eczema 10/29/2022 Elevated TSH 10/29/2022 External hemorrhoids 10/29/2022 Hair loss 10/29/2022 Low back pain 10/29/2022 Menopausal state 10/29/2022 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[facility]) 10/29/2022 Mixed anxiety depressive disorder 10/29/2022 Obesity (BMI 30.0-34.9) 10/29/2022 Obstructive sleep apnea syndrome 10/29/2022 Falling 10/29/2022 Seborrheic keratosis 10/29/2022 Rosacea, acne 10/15/2022 Hemangioma of skin and subcutaneous tissue 04/24/2016 Breast calcifications on mammogram 07/24/2013 Cerebrovascular accident (CVA) ([facility]) 06/23/2009 Social History Tobacco Use Smoking status: [...] kg (202 lb) Height: 1.626 m (5' 4") ECOG PS = 3 Physical Exam Vitals [...] 09/23/2023 0.0 <0.1 10*3/uL Final SODIUM - [facility] 09/23/2023 140 128 - 145 mEq/L Final POTASSIUM - [facility] 09/23/2023 3.8 3.6 - 5.1 mEq/L Final CHLORIDE - [facility] 09/23/2023 104 98 - 108 mEq/L Final CARBON DIOXIDE - [facility] 09/23/2023 27 18 - 33 mEq/L Final ANION GAP - [facility] 09/23/2023 9.00 -4.00 - 12.00 mmol/L Final UREA NITROGEN - [facility] 09/23/2023 19 7 - 22 mg/dL Final CREATININE - [facility] 09/23/2023 0.8 0.6 - 1.2 mg/dL Final GLUCOSE - [facility] 09/23/2023 133 (H) 73 - 118 mg/dL Final CALCIUM - [facility] 09/23/2023 9.3 8.0 - 10.3 mg/dL Final AST(SGOT) - [facility] 09/23/2023 29 11 - 38 U/L Final ALT - [facility] 09/23/2023 20 10 - 47 U/L Final ALKALINE PHOSPHATASE - [facility] 09/23/2023 83 42 - 141 U/L Final ALBUMIN - [facility] 09/23/2023 3.4 3.3 - 5.5 g/dL Final BILIRUBIN, TOTAL - [facility] 09/23/2023 0.7 0.2 - 1.6 mg/dL Final TOTAL PROTEIN - [facility] 09/23/2023 6.5 6.4 - 8.1 g/dL Final EGFR - [facility] 09/23/2023 76.0 >60.0 mL/min/1.73m*2 Final Imaging [...] (HCC) 1) stage 1A left breast cancer ER+/MA+/HER2+ pT1c pN0 cM0 s/p left partial mastectomy [...] up with Dr. Choi for mammograms at [facility] - signs and symptoms of [...] DO Hematology/Medical Oncology documented in this encounter [facility] 10-06-2023 Telephone encounter Note Follow up call made to pt., no answer - LMOM. Will continue to monitor and follow. Lisa Watters MPA, RDN LD CDCES [facility] 10-06-2023 Miscellaneous Notes Follow up call made to pt., no answer - LMOM. Will continue to monitor and follow. Lisa Watters MPA, RDN LD CDCES documented in this encounter [facility] 09-23-2023 History of Present illness Narrative [...] prior to discharge. documented in this encounter [facility] 09-12-2023 History of Present illness Narrative RADIATION ONCOLOGY FOLLOW UP PATIENT: Madiha Perales DATE OF SERVICE: 09/12/2023 : 1945 AGE: 78 y.o. PRIMARY SITE AND HISTOPATHOLOGY: Left breast, grade 3 invasive ductal carcinoma, ER positive, MA positive, HER2 positive. STAGE: cT1b N0 M0, [...] the left breast. Biopsy was performed at [facility] on 01/28/2023. This revealed grade 3 invasive ductal carcinoma measuring at least 8 mm in dimension. ER positive at 100%, MA positive at 70% and HER2 positive at [...] F (36.1 C) Resp 16 Ht 5' 4" (1.626 m) Wt 209 lb 3.2 oz [...] in 6 months. Vicki Diego MD [facility] [place] Department of Radiation Oncology is an Accredited Facility of the [employer] (ACR). This document was [...] provider for clarification. documented in this encounter [facility] 09-12-2023 Nurse Note Here with using walker for follow up.Appetite good states she just doesn't drink enough water. Energy normal for her rests frequently. States skin is doing well and continues to moisturize with aloe and coconut oil. Recent bone density test done. Has echo coming up and continues on Trazimera every 3 weeks. [facility] 09-12-2023 Nurse Note Here with using walker for follow up.Appetite good states she just doesn't drink enough water. Energy normal for her rests frequently. States skin is doing well and continues to moisturize with aloe and coconut oil. Recent bone density test done. Has echo coming up and continues on Trazimera every 3 weeks. documented in this encounter [facility] 09-02-2023 History of Present illness Narrative [...] ambulatory upon discharge. documented in this encounter [facility] 09-02-2023 History of Present illness Narrative Patient arrived for Q 3 week Trafuada from OV with physician. PIV inserted on [...] ambulatory upon discharge. documented in this encounter [facility] 09-02-2023 History of Present illness Narrative Hematology/Oncology Office Visit Oncology History: 1) stage 1A left breast cancer, invasive ductal carcinoma grade 3. ER+ MA+ HER2+. cT1b N0 M0; pT1c N0 M0, diagnosed 01/28/23. - Patient is a 78 yo F who presented with an abnormal screening mammogram of the upper outer quadrant of the left breast on 11/27/22. Diagnostic imaging and ultrasound were performed on 01/21/2023: a 0.9 x 0.9 x 1 cm irregular mass in the left breast. Biopsy was performed at [facility] on 01/28/2023 confirming grade 3 invasive ductal carcinoma ER positive 100%, MA positive 70% and HER2 positive at 3+. The patient underwent lumpectomy and sentinel node removal on 02/18/[address] Choi at [facility]: pathology revealed grade 3 invasive ductal carcinoma measuring 1.9 cm. There was focal DCIS and extensive lymphovascular invasion. Margins were negative for invasive and in situ component at greater than 2 mm. 6 axillary nodes were removed: 5 sentinel and 1 nonsentinel. All were negative. Pathologically staged T1CN0. - she was referred to [facility] for medical and radiation oncology. Her [...] back pain Breast calcifications on mammogram Dementia ([facility]) Depression Eczema H/O colonoscopy Hemorrhoid Hx of rosacea Lower extremity edema MARCY (obstructive sleep apnea) The patient wears CPAP Parkinson disease Stroke ([facility]) 2009 Torn meniscus Uterine cancer ([facility]/HCC) ([facility]) 2005 Past Surgical History: Procedure Laterality Date [...] left breast in female, estrogen receptor positive ([facility]) ([facility]) 03/18/2023 Edema of both lower extremities 02/05/2023 [...] calcifications on mammogram 07/24/2013 Cerebrovascular accident (CVA) ([facility]) 06/23/2009 Social History Tobacco Use Smoking status: [...] lb 11.2 oz) Height: 1.651 m (5' 5") ECOG PS = 2 Physical Exam Vitals [...] Narrative: Patient Name: MADIHA PERALES : 1945 Exam Date/Time: 07/03/2023 11:37 Procedure: CT SIMULATION WO CONTRAST - RADIATION ONCOLOGY Ordering Provider: DIEGO DESIREE Reason For Exam: BREAST CARCINOMA CT simulation therapy /CT chest INDICATION: Breast carcinoma. Technique: Large [id number] 3 mm axial sections were obtained through [...] therapy 1) stage 1A left breast cancer ER+/MA+/HER2+ pT1c pN0 cM0 s/p left partial mastectomy [...] DO Hematology/Medical Oncology documented in this encounter [facility] 08-12-2023 History of Present illness Narrative Patient arrived for delayed cycle 4 Q 3 week Trazimera. Patient still has cough on ATB. Reports feels well. Encouraged to call PCP to follow up with cough. PIV inserted, blood for CBC and CMP obtained. Infusion complete. PIV d/c'd angio cath intact. Patient ambulatory upon discharge. documented in this encounter [facility] 08-12-2023 History of Present illness Narrative Patient arrived for delayed cycle 4 Q 3 week Trazimera. Patient still has cough on ATB. Reports feels well. Encouraged to call PCP to follow up with cough. PIV inserted, blood for CBC and CMP obtained. Infusion complete. PIV d/c'd angio cath intact. Patient ambulatory upon discharge. documented in this encounter [facility] 08-05-2023 History of Present illness Narrative Patient arrived with family for Q 3 week Trazimera. Patient requesting IV hydration as well today for patient. Vitals obtained. PIV inserted in RFA, blood for CBC and CMP obtained. ECHO from 03-31-23 shows EF of 62%. Per patient family, patient has "chest cold" and congestion starting 5 days ago. It [...] seen by PCP. documented in this encounter [facility] 07-30-2023 History of Present illness Narrative [...] (97.5 F) (Temporal) Ht 1.651 m (5' 5") Wt 93.8 kg (206 lb 12.8 oz) [...] or grammatical errorspending documented in this encounter [facility] Work Phone: 07-29-2023 Telephone encounter Note ECHO for August pended to be signed [facility] 07-29-2023 Miscellaneous Notes ECHO for August pended to be signed documented in this encounter [facility] 07-15-2023 History of Present illness Narrative [...] assist to exit. documented in this encounter [facility] 07-15-2023 History of Present illness Narrative [...] assist to exit. documented in this encounter [facility] 07-15-2023 History of Present illness Narrative Hematology/Oncology Office Visit Oncology History: 1) stage 1A left breast cancer, invasive ductal carcinoma grade 3. ER+ MA+ HER2+. cT1b N0 M0; pT1c N0 M0, diagnosed 01/28/23. - Patient is a 78 yo F who presented with an abnormal screening mammogram of the upper outer quadrant of the left breast on 11/27/22. Diagnostic imaging and ultrasound were performed on 01/21/2023: a 0.9 x 0.9 x 1 cm irregular mass in the left breast. Biopsy was performed at [facility] on 01/28/2023 confirming grade 3 invasive ductal carcinoma ER positive 100%, MA positive 70% and HER2 positive at 3+. The patient underwent lumpectomy and sentinel node removal on 02/18/[address] Choi at [facility]: pathology revealed grade 3 invasive ductal carcinoma measuring 1.9 cm. There was focal DCIS and extensive lymphovascular invasion. Margins were negative for invasive and in situ component at greater than 2 mm. 6 axillary nodes were removed: 5 sentinel and 1 nonsentinel. All were negative. Pathologically staged T1CN0. - she was referred to [facility] for medical and radiation oncology. Her [...] (HCC) 2009 Torn meniscus Uterine cancer (CMS/HCC) ([facility]) 2005 Past Surgical History: Procedure Laterality Date [...] left breast in female, estrogen receptor positive ([facility]) ([facility]) 03/18/2023 Edema of both lower extremities 02/05/2023 Parkinsonism 02/05/2023 Allergic reaction to bee sting 10/29/2022 Allergic rhinitis 10/29/2022 Eczema 10/29/2022 Eczema 10/29/2022 Elevated TSH 10/29/2022 External hemorrhoids 10/29/2022 Hair loss 10/29/2022 Low back pain 10/29/2022 Menopausal state 10/29/2022 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[facility]) 10/29/2022 Mixed anxiety depressive disorder 10/29/2022 Obesity (BMI 30.0-34.9) 10/29/2022 Obstructive sleep apnea syndrome 10/29/2022 Falling 10/29/2022 Seborrheic keratosis 10/29/2022 Rosacea, acne 10/15/2022 Hemangioma of skin and subcutaneous tissue 04/24/2016 Breast calcifications on mammogram 07/24/2013 Cerebrovascular accident (CVA) ([facility]) 06/23/2009 Social History Tobacco Use Smoking status: [...] kg (204 lb) Height: 1.651 m (5' 5") ECOG PS = 2 Physical Exam Vitals [...] Narrative: Patient Name: MADIHA PERALES : 1945 Exam Date/Time: 07/03/2023 11:37 Procedure: CT SIMULATION WO CONTRAST - RADIATION ONCOLOGY Ordering Provider: DIEGO DESIREE Reason For Exam: BREAST CARCINOMA CT simulation therapy /CT chest INDICATION: Breast carcinoma. Technique: Large [id number]-nj-[id number] 3 mm axial sections were obtained through [...] (HCC) 1) stage 1A left breast cancer ER+/MA+/HER2+ pT1c pN0 cM0 s/p left partial mastectomy [...] DO Hematology/Medical Oncology documented in this encounter [facility] 07-14-2023 Telephone encounter Note Reached out to patient's daughter on this date by phone to check-in, assess needs, and offer support. Left voicemail requesting return call. [facility] 07-14-2023 Miscellaneous Notes Reached out to patient's daughter on this date by phone to check-in, assess needs, and offer support. Left voicemail requesting return call. documented in this encounter [facility] 07-03-2023 History of Present illness Narrative RADIATION ONCOLOGY FOLLOW UP PATIENT: Madiha Perales DATE OF SERVICE: 07/03/2023 : 1945 AGE: 78 y.o. PRIMARY SITE AND HISTOPATHOLOGY: Left breast, grade 3 invasive ductal carcinoma, ER positive, MA positive, HER2 positive. STAGE: cT1b N0 M0, [...] the left breast. Biopsy was performed at [facility] on 01/28/2023. This revealed grade 3 invasive ductal carcinoma measuring at least 8 mm in dimension. ER positive at 100%, MA positive at 70% and HER2 positive at [...] to side effects. She required admission to [facility] on 06/05/2023 through 06/08/2023 for symptom [...] The patient wears CPAP Parkinson disease Stroke ([facility]) 2009 Torn meniscus Uterine cancer (CMS/HCC) (HCC) [...] F (36.5 C) Resp 20 Ht 5' 5" (1.651 m) Wt 199 lb 9.6 oz [...] start planning today. PLAN: Under CT guidance santoro are being set up to treat the left breast with hypofractionated technique for 4 weeks of therapy. Vicki Diego MD [facility] Department of Radiation Oncology is an Accredited Facility of the [employer] (ACR). Total time: 35 [...] provider for clarification. documented in this encounter [facility] 07-03-2023 Nurse Note The patient is here at [facility] with her and daughter for follow up with Dr. Diego. She denies pain at the current time. She states her appetite and sleeping are WNL. He states she has low energy. She is on Trastuzumab every 3 weeks under the care of Dr. Escobedo. [facility] 07-03-2023 Nurse Note The patient signed consent and the RN signed as a witness. The RN gave and reviewed skin care teaching with the patient. The patient verbalized understanding. [facility] 07-03-2023 Nurse Note The patient is here at [facility] with her and daughter for follow up [...] patient verbalized understanding. documented in this encounter [facility] 06-26-2023 History of Present illness Narrative Subjective Patient ID: Madiha Perales is a 78 y.o. female who presents for Hospital Follow-up (Was at [facility] was not responsive could not even stand, [...] or grammatical errors documented in this encounter [facility] Work Phone: 06-24-2023 History of Present illness Narrative Hematology/Oncology Office Visit Oncology History: 1) stage 1A left breast cancer, invasive ductal carcinoma grade 3. ER+ MA+ HER2+. cT1b N0 M0; pT1c N0 M0, diagnosed 01/28/23. - Patient is a 78 yo F who presented with an abnormal screening mammogram of the upper outer quadrant of the left breast on 11/27/22. Diagnostic imaging and ultrasound were performed on 01/21/2023: a 0.9 x 0.9 x 1 cm irregular mass in the left breast. Biopsy was performed at [facility] on 01/28/2023 confirming grade 3 invasive ductal carcinoma ER positive 100%, MA positive 70% and HER2 positive at 3+. The patient underwent lumpectomy and sentinel node removal on 02/18/[address] Choi at [facility]: pathology revealed grade 3 invasive ductal carcinoma measuring 1.9 cm. There was focal DCIS and extensive lymphovascular invasion. Margins were negative for invasive and in situ component at greater than 2 mm. 6 axillary nodes were removed: 5 sentinel and 1 nonsentinel. All were negative. Pathologically staged T1CN0. - she was referred to [facility] for medical and radiation oncology. Her [...] back pain Breast calcifications on mammogram Dementia ([facility]) Depression Eczema H/O colonoscopy Hemorrhoid Hx of rosacea Lower extremity edema MARCY (obstructive sleep apnea) The patient wears CPAP Parkinson disease Stroke ([facility]) 2009 Torn meniscus Uterine cancer ([facility]/HCC) ([facility]) 2005 Past Surgical History: Procedure Laterality Date [...] left breast in female, estrogen receptor positive ([facility]) 03/18/2023 Edema of both lower extremities 02/05/2023 [...] calcifications on mammogram 07/24/2013 Cerebrovascular accident (CVA) ([facility]) 06/23/2009 Social History Tobacco Use Smoking status: [...] kg (201 lb) Height: 1.651 m (5' 5") ECOG PS = 2 Physical Exam Vitals [...] (HCC) 1) stage 1A left breast cancer ER+/MA+/HER2+ pT1c pN0 cM0 s/p left partial mastectomy [...] DO Hematology/Medical Oncology documented in this encounter [facility] 06-24-2023 History of Present illness Narrative [...] ambulatory upon discharge. documented in this encounter [facility] 06-24-2023 History of Present illness Narrative [...] ambulatory upon discharge. documented in this encounter [facility] 06-13-2023 History of Present illness Narrative Arrival Note Infusion Patient is here for hydration Labs were not ordered. 1013 Infusion completed and flushed with NS. No IV related complications. No s/sx rx, pt voices no c/o. Pt verbalizes understanding of s/sx adverse reaction or complication to report to MD office when at home. documented in this encounter [facility] 06-13-2023 Telephone encounter Note Patient accepted and confirmed home health start of care (SOC) for 06/12/23. Visit time established. [facility] Work Phone: 06-13-2023 Miscellaneous Notes Patient accepted and confirmed home health start of care (SOC) for 06/12/23. Visit time established. documented in this encounter [facility] 06-12-2023 Telephone encounter Note Received [...] and will reach out if needs/questions arise. [facility] 06-12-2023 Miscellaneous Notes Received return message [...] if needs/questions arise. documented in this encounter [facility] 06-12-2023 Telephone encounter Note Reached out to rodney's daughter/Wesley on this date via phone to check-in and offer support. No answer. Left voicemail requesting return call. [facility] 06-12-2023 Miscellaneous Notes Reached out to rodney's daughter/Wesley on this date via phone to check-in and offer support. No answer. Left voicemail requesting return call. documented in this encounter [facility] 06-11-2023 Telephone encounter Note Follow up phone call made to pt's daughter - no answer. LMOM for pt. To return call. Continue to monitor. Lisa Watters MPA, RDN LD CDCES [facility] 06-11-2023 Miscellaneous Notes Follow up phone call made to pt's daughter - no answer. LMOM for pt. To return call. Continue to monitor. Lisa Watters MPA, RDN LD CDCES documented in this encounter [facility] 06-09-2023 Miscellaneous Notes Standing lab orders to be drawn prior to oncology infusions are pended. documented in this encounter [facility] 06-09-2023 Telephone encounter Note Standing lab orders to be drawn prior to oncology infusions are pended. [facility] 06-04-2023 Telephone encounter Note Received a [...] for patient. This worker provided education on [facility] on Aging services and supports. Also provided education on [facility]. Wesley states the family has an agency they have gone through to get assistance for other family members that they may look into using again. This worker e-mailed Wesley a list of private pay home health agencies to [email or web address]. This worker also made a referral to [facility] home delivered meal program on patient's behalf. Spoke with Suzanne at [facility] and she said she will contact Wesley regarding their meal program. Wesley has this worker's contact information in case additional needs arise. This worker will continue to follow-up. [facility] 06-04-2023 Miscellaneous Notes Received a return [...] for patient. This worker provided education on [facility] on Aging services and supports. Also provided education on [facility] for [facility]er Ad[facility]. Wesley states the family has an agency they have gone through to get assistance for other family members that they may look into using again. This worker e-mailed Wesley a list of private pay home health agencies to [email or web address]. This worker also made a referral to [facility] home delivered meal program on patient's behalf. Spoke with Suzanne at [facility] and she said she will contact Wesley regarding their meal program. Wesley has this worker's contact information in case additional needs arise. This worker will continue to follow-up. documented in this encounter [facility] 06-03-2023 Telephone encounter Note Received referral from Cathy Quiñones RN to connect with patient's family regarding options for increased help at home. Reached out to patient's daughter/Wesley on this date via phone. No answer. Left voicemail requesting return call. [facility] 06-03-2023 Miscellaneous Notes Received referral from Cathy Quiñones RN to connect with patient's family regarding options for increased help at home. Reached out to patient's daughter/Wesley on this date via phone. No answer. Left voicemail requesting return call. documented in this encounter [facility] 06-03-2023 Telephone encounter Note Venous duplex pended to be signed [facility] 06-03-2023 Miscellaneous Notes Venous duplex pended to be signed documented in this encounter [facility] 06-03-2023 History of Present illness Narrative Hematology/Oncology Office Visit Oncology History: 1) stage 1A left breast cancer, invasive ductal carcinoma grade 3. ER+ MA+ HER2+. cT1b N0 M0; pT1c N0 M0, diagnosed 01/28/23. - Patient is a 78 yo F who presented with an abnormal screening mammogram of the upper outer quadrant of the left breast on 11/27/22. Diagnostic imaging and ultrasound were performed on 01/21/2023: a 0.9 x 0.9 x 1 cm irregular mass in the left breast. Biopsy was performed at [facility] on 01/28/2023 confirming grade 3 invasive ductal carcinoma ER positive 100%, MA positive 70% and HER2 positive at 3+. The patient underwent lumpectomy and sentinel node removal on 02/18/[address] Choi at [facility]: pathology revealed grade 3 invasive ductal carcinoma measuring 1.9 cm. There was focal DCIS and extensive lymphovascular invasion. Margins were negative for invasive and in situ component at greater than 2 mm. 6 axillary nodes were removed: 5 sentinel and 1 nonsentinel. All were negative. Pathologically staged T1CN0. - she was referred to [facility] for medical and radiation oncology. Her [...] back pain Breast calcifications on mammogram Dementia ([facility]) Depression Eczema H/O colonoscopy Hemorrhoid Hx of rosacea Lower extremity edema MARCY (obstructive sleep apnea) The patient wears CPAP Parkinson disease Stroke ([facility]) 2009 Torn meniscus Uterine cancer ([facility]) ([facility]) 2005 Past Surgical History: Procedure Laterality Date [...] left breast in female, estrogen receptor positive ([facility]) 03/18/2023 Edema of both lower extremities 02/05/2023 Parkinsonism 02/05/2023 Allergic reaction to bee sting 10/29/2022 Allergic rhinitis 10/29/2022 Eczema 10/29/2022 Eczema 10/29/2022 Elevated TSH 10/29/2022 External hemorrhoids 10/29/2022 Hair loss 10/29/2022 Low back pain 10/29/2022 Menopausal state 10/29/2022 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[facility]) 10/29/2022 Mixed anxiety depressive disorder 10/29/2022 Obesity (BMI 30.0-34.9) 10/29/2022 Obstructive sleep apnea syndrome 10/29/2022 Falling 10/29/2022 Seborrheic keratosis 10/29/2022 Rosacea, acne 10/15/2022 Hemangioma of skin and subcutaneous tissue 04/24/2016 Breast calcifications on mammogram 07/24/2013 Cerebrovascular accident (CVA) ([facility]) 06/23/2009 Social History Tobacco Use Smoking status: [...] Temporal SpO2: 95% Height: 1.651 m (5' 5") ECOG PS = 2 Physical Exam Vitals [...] therapy 1) stage 1A left breast cancer ER+/MA+/HER2+ pT1c pN0 cM0 s/p left partial mastectomy [...] DO Hematology/Medical Oncology documented in this encounter [facility] 06-03-2023 History of Present illness Narrative [...] commands and noticed weakness after showering with "eyes rolling". Vitals obtained. Patient hypotensive. PIV started in [...] at this time. Staff message sent to [employer] and wafer production worker for additional resources and possible in [...] to patient and daughter. Patient assisted to and wheeled to registration at front of building for venous duplex. documented in this encounter [facility] 05-27-2023 History of Present illness Narrative Patient [...] at this time. documented in this encounter [facility] 05-27-2023 Telephone encounter Note At check-in patient stated that insurance will remain the same in the upcoming year. [employer] 05.27.23 ES [facility] 05-27-2023 Miscellaneous Notes At check-in patient stated that insurance will remain the same in the upcoming year. [employer] 05.27.23 ES documented in this encounter [facility] 05-23-2023 History of Present illness Narrative Patient [...] at this time documented in this encounter [facility] 05-20-2023 History of Present illness Narrative Hematology/Oncology Office Visit Oncology History: 1) stage 1A left breast cancer, invasive ductal carcinoma grade 3. ER+ MA+ HER2+. cT1b N0 M0; pT1c N0 M0, diagnosed 01/28/23. - Patient is a 78 yo F who presented with an abnormal screening mammogram of the upper outer quadrant of the left breast on 11/27/22. Diagnostic imaging and ultrasound were performed on 01/21/2023: a 0.9 x 0.9 x 1 cm irregular mass in the left breast. Biopsy was performed at [facility] on 01/28/2023 confirming grade 3 invasive ductal carcinoma ER positive 100%, MA positive 70% and HER2 positive at 3+. The patient underwent lumpectomy and sentinel node removal on 02/18/[address] Choi at [facility]: pathology revealed grade 3 invasive ductal carcinoma measuring 1.9 cm. There was focal DCIS and extensive lymphovascular invasion. Margins were negative for invasive and in situ component at greater than 2 mm. 6 axillary nodes were removed: 5 sentinel and 1 nonsentinel. All were negative. Pathologically staged T1CN0. - she was referred to [facility] for medical and radiation oncology. Her [...] The patient wears CPAP Parkinson disease Stroke ([facility]) 2009 Torn meniscus Uterine cancer ([facility]/HCC) ([facility]) 2005 Past Surgical History: Procedure Laterality Date [...] left breast in female, estrogen receptor positive ([facility]) 03/18/2023 Edema of both lower extremities 02/05/2023 Parkinsonism 02/05/2023 Allergic reaction to bee sting 10/29/2022 Allergic rhinitis 10/29/2022 Eczema 10/29/2022 Eczema 10/29/2022 Elevated TSH 10/29/2022 External hemorrhoids 10/29/2022 Hair loss 10/29/2022 Low back pain 10/29/2022 Menopausal state 10/29/2022 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[facility]) 10/29/2022 Mixed anxiety depressive disorder 10/29/2022 Obesity (BMI 30.0-34.9) 10/29/2022 Obstructive sleep apnea syndrome 10/29/2022 Falling 10/29/2022 Seborrheic keratosis 10/29/2022 Rosacea, acne 10/15/2022 Hemangioma of skin and subcutaneous tissue 04/24/2016 Breast calcifications on mammogram 07/24/2013 Cerebrovascular accident (CVA) ([facility]) 06/23/2009 Social History Tobacco Use Smoking status: [...] lb 12.8 oz) Height: 1.651 m (5' 5") ECOG PS = 2 Physical Exam Vitals [...] (HCC) 1) stage 1A left breast cancer ER+/MA+/HER2+ pT1c pN0 cM0 s/p left partial mastectomy [...] DO Hematology/Medical Oncology documented in this encounter [facility] 05-20-2023 History of Present illness Narrative [...] ambulatory upon discharge. documented in this encounter [facility] 05-13-2023 History of Present illness Narrative [...] ambulatory upon discharge. documented in this encounter [facility] 05-12-2023 Telephone encounter Note ECHO for Jun 2023 pended to be signed [facility] 05-12-2023 Miscellaneous Notes ECHO for Jun 2023 pended to be signed documented in this encounter [facility] 05-06-2023 History of Present illness Narrative Hematology/Oncology Office Visit Oncology History: 1) stage 1A left breast cancer, invasive ductal carcinoma grade 3. ER+ MA+ HER2+. cT1b N0 M0; pT1c N0 M0, diagnosed 01/28/23. - Patient is a 78 yo F who presented with an abnormal screening mammogram of the upper outer quadrant of the left breast on 11/27/22. Diagnostic imaging and ultrasound were performed on 01/21/2023: a 0.9 x 0.9 x 1 cm irregular mass in the left breast. Biopsy was performed at [facility] on 01/28/2023 confirming grade 3 invasive ductal carcinoma ER positive 100%, MA positive 70% and HER2 positive at 3+. The patient underwent lumpectomy and sentinel node removal on 02/18/[address] Choi at [facility]: pathology revealed grade 3 invasive ductal carcinoma measuring 1.9 cm. There was focal DCIS and extensive lymphovascular invasion. Margins were negative for invasive and in situ component at greater than 2 mm. 6 axillary nodes were removed: 5 sentinel and 1 nonsentinel. All were negative. Pathologically staged T1CN0. - she was referred to [facility] for medical and radiation oncology. Her [...] (HCC) 2009 Torn meniscus Uterine cancer (CMS/HCC) ([facility]) 2005 Past Surgical History: Procedure Laterality Date [...] left breast in female, estrogen receptor positive ([facility]) 03/18/2023 Edema of both lower extremities 02/05/2023 Parkinsonism 02/05/2023 Allergic reaction to bee sting 10/29/2022 Allergic rhinitis 10/29/2022 Eczema 10/29/2022 Eczema 10/29/2022 Elevated TSH 10/29/2022 External hemorrhoids 10/29/2022 Hair loss 10/29/2022 Low back pain 10/29/2022 Menopausal state 10/29/2022 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[facility]) 10/29/2022 Mixed anxiety depressive disorder 10/29/2022 Obesity (BMI 30.0-34.9) 10/29/2022 Obstructive sleep apnea syndrome 10/29/2022 Falling 10/29/2022 Seborrheic keratosis 10/29/2022 Rosacea, acne 10/15/2022 Hemangioma of skin and subcutaneous tissue 04/24/2016 Breast calcifications on mammogram 07/24/2013 Cerebrovascular accident (CVA) ([facility]) 06/23/2009 Social History Tobacco Use Smoking status: [...] lb 12.8 oz) Height: 1.651 m (5' 5") ECOG PS = 2 Physical Exam Vitals [...] (HCC) 1) stage 1A left breast cancer ER+/MA+/HER2+ pT1c pN0 cM0 s/p left partial mastectomy [...] DO Hematology/Medical Oncology documented in this encounter [facility] 05-06-2023 History of Present illness Narrative [...] of next appt. documented in this encounter [facility] 04-29-2023 History of Present illness Narrative [...] provided to patient. documented in this encounter [facility] 04-22-2023 History of Present illness Narrative Hematology/Oncology Office Visit Oncology History: 1) stage 1A left breast cancer, invasive ductal carcinoma grade 3. ER+ MA+ HER2+. cT1b N0 M0; pT1c N0 M0, diagnosed 01/28/23. - Patient is a 78 yo F who presented with an abnormal screening mammogram of the upper outer quadrant of the left breast on 11/27/22. Diagnostic imaging and ultrasound were performed on 01/21/2023: a 0.9 x 0.9 x 1 cm irregular mass in the left breast. Biopsy was performed at [facility] on 01/28/2023 confirming grade 3 invasive ductal carcinoma ER positive 100%, MA positive 70% and HER2 positive at 3+. The patient underwent lumpectomy and sentinel node removal on 02/18/[address] Choi at [facility]: pathology revealed grade 3 invasive ductal carcinoma measuring 1.9 cm. There was focal DCIS and extensive lymphovascular invasion. Margins were negative for invasive and in situ component at greater than 2 mm. 6 axillary nodes were removed: 5 sentinel and 1 nonsentinel. All were negative. Pathologically staged T1CN0. - [facility] medical [facility] radiation onc[facility]. Her case [...] The patient wears CPAP Parkinson disease Stroke ([facility]) 2009 Torn meniscus Uterine cancer ([facility]/HCC) ([facility]) 2005 Past Surgical History: Procedure Laterality Date [...] left breast in female, estrogen receptor positive ([facility]) 03/18/2023 Edema of both lower extremities 02/05/2023 Parkinsonism 02/05/2023 Allergic reaction to bee sting 10/29/2022 Allergic rhinitis 10/29/2022 Eczema 10/29/2022 Eczema 10/29/2022 Elevated TSH 10/29/2022 External hemorrhoids 10/29/2022 Hair loss 10/29/2022 Low back pain 10/29/2022 Menopausal state 10/29/2022 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[facility]) 10/29/2022 Mixed anxiety depressive disorder 10/29/2022 Obesity (BMI 30.0-34.9) 10/29/2022 Obstructive sleep apnea syndrome 10/29/2022 Falling 10/29/2022 Seborrheic keratosis 10/29/2022 Rosacea, acne 10/15/2022 Hemangioma of skin and subcutaneous tissue 04/24/2016 Breast calcifications on mammogram 07/24/2013 Cerebrovascular accident (CVA) ([facility]) 06/23/2009 Social History Tobacco Use Smoking status: [...] lb 6.4 oz) Height: 1.651 m (5' 5") ECOG PS = 2 Physical Exam Vitals [...] (HCC) 1) stage 1A left breast cancer ER+/MA+/HER2+ pT1c pN0 cM0 s/p left partial mastectomy [...] DO Hematology/Medical Oncology documented in this encounter [facility] 04-22-2023 History of Present illness Narrative [...] ambulatory upon discharge. documented in this encounter [facility] 04-08-2023 History of Present illness Narrative Hematology/Oncology Office Visit Oncology History: 1) stage 1A left breast cancer, invasive ductal carcinoma grade 3. ER+ MA+ HER2+. cT1b N0 M0; pT1c N0 M0, diagnosed 01/28/23. - Patient is a 78 yo F who presented with an abnormal screening mammogram of the upper outer quadrant of the left breast on 11/27/22. Diagnostic imaging and ultrasound were performed on 01/21/2023: a 0.9 x 0.9 x 1 cm irregular mass in the left breast. Biopsy was performed at [facility] on 01/28/2023 confirming grade 3 invasive ductal carcinoma ER positive 100%, MA positive 70% and HER2 positive at 3+. The patient underwent lumpectomy and sentinel node removal on 02/18/[address] Choi at [facility]: pathology revealed grade 3 invasive ductal carcinoma measuring 1.9 cm. There was focal DCIS and extensive lymphovascular invasion. Margins were negative for invasive and in situ component at greater than 2 mm. 6 axillary nodes were removed: 5 sentinel and 1 nonsentinel. All were negative. Pathologically staged T1CN0. - she was referred to [facility] for medical and radiation oncology. Her [...] 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[facility]) 10/29/2022 Mixed anxiety depressive disorder 10/29/2022 Obesity (BMI 30.0-34.9) 10/29/2022 Obstructive sleep apnea syndrome 10/29/2022 Falling 10/29/2022 Seborrheic keratosis 10/29/2022 Rosacea, acne 10/15/2022 Hemangioma of skin and subcutaneous tissue 04/24/2016 Breast calcifications on mammogram 07/24/2013 Cerebrovascular accident (CVA) ([facility]) 06/23/2009 Social History Tobacco Use Smoking status: [...] lb 8 oz (92.3 kg) Height: 5' 5" (1.651 m) ECOG PS = 2 Physical [...] Case Report 03/14/2023 Final Value:Surgical Pathology Case: [id number] Authorizing Provider: Vicki Diego MD Collected: 03/14/2023 1008 Ordering Location: [facility] Laboratory Received: 03/14/2023 0812 Pathologist: Fozia Ponce [...] be displayed here. Pathologist Interpretation Location 03/14/2023 [facility], [address] [place] [address], CLIA: [id number]; Joint Commission: [id number]; CAP: [id number] Final Imaging Reviewed: as per HPI - I have reviewed all available pertinent laboratory, imaging and pathology results with the patient and/or family members today. Assessment/Plan: Diagnosis Plan 1. Malignant neoplasm of upper-outer quadrant of left breast in female, estrogen receptor positive (HCC) 1) stage 1A left breast cancer ER+/MA+/HER2+ pT1c pN0 cM0 s/p left partial mastectomy [...] DO Hematology/Medical Oncology documented in this encounter [facility] 04-08-2023 History of Present illness Narrative Patient [...] of next appt. documented in this encounter [facility] 04-08-2023 History of Present illness Narrative Patient [...] of next appt. documented in this encounter [facility] 04-01-2023 History of Present illness Narrative Patient [...] ambulatory upon discharge. documented in this encounter [facility] 03-31-2023 History of Present illness Narrative Chemotherapy teaching completed with patient and , daughter, [id number], and son for Paclitaxel, and Trazimera. Written [...] access: PIV. Patient will get treatment in [place]. Reviewed role of multidisciplinary team: social work, scalp specialist, financial developer. Patient agreeable to proceed with treatment and signed consent form. Copy of consent form given to patient. Advised patient of appointment information and treatment calendar given. documented in this encounter [facility] 03-24-2023 Telephone encounter Note Standing orders for pre chemo labs are pended. Prescriptions for antiemetics and decadron prep prior to first treatment are pended. [facility] 03-24-2023 Miscellaneous Notes Standing orders for pre chemo labs are pended. Prescriptions for antiemetics and decadron prep prior to first treatment are pended. documented in this encounter [facility] 03-18-2023 History of Present illness Narrative New Patient Hematology/Oncology Office Visit Consultation/Referral Reason: breast cancer Referred by: Dr. Diego Oncology History: 1) stage 1A left breast cancer, invasive ductal carcinoma grade 3. ER+ MA+ HER2+. cT1b N0 M0; pT1c N0 M0, diagnosed 01/28/23. - Patient is a 78 yo F who presented with an abnormal screening mammogram of the upper outer quadrant of the left breast on 11/27/22. Diagnostic imaging and ultrasound were performed on 01/21/2023: a 0.9 x 0.9 x 1 cm irregular mass in the left breast. Biopsy was performed at [facility] on 01/28/2023 confirming grade 3 invasive ductal carcinoma ER positive 100%, MA positive 70% and HER2 positive at 3+. The patient underwent lumpectomy and sentinel node removal on 02/18/[address] Choi at [facility]: pathology revealed grade 3 invasive ductal carcinoma measuring 1.9 cm. There was focal DCIS and extensive lymphovascular invasion. Margins were negative for invasive and in situ component at greater than 2 mm. 6 axillary nodes were removed: 5 sentinel and 1 nonsentinel. All were negative. Pathologically staged T1CN0. - she was referred to [facility] for medical and radiation oncology. Her [...] back pain Breast calcifications on mammogram Dementia ([facility]) Depression Eczema H/O colonoscopy Hemorrhoid Hx of rosacea Lower extremity edema MARCY (obstructive sleep apnea) The patient wears CPAP Parkinson disease ([facility]) Stroke ([facility]) 2009 Torn meniscus Uterine cancer ([facility]/HCC) ([facility]) 2005 Past Surgical History: Procedure Laterality Date [...] left breast in female, estrogen receptor positive ([facility]) 03/18/2023 Edema of both lower extremities 02/05/2023 [...] calcifications on mammogram 07/24/2013 Cerebrovascular accident (CVA) ([facility]) 06/23/2009 Social History Tobacco Use Smoking status: [...] lb 8 oz (92.3 kg) Height: 5' 5" (1.651 m) ECOG PS = 2 Physical [...] Case Report 03/14/2023 Final Value:Surgical Pathology Case: [id number] Authorizing Provider: Vicki Diego MD Collected: 03/14/2023 1008 Ordering Location: [facility] Laboratory Received: 03/14/2023 0812 Pathologist: Fozia Ponce [...] be displayed here. Pathologist Interpretation Location 03/14/2023 [facility], [address] [place] [address], [facility] [address], CLIA: [id number]; Joint Commission: [id number]; CAP: [id number] Final Imaging Reviewed: as per HPI - [...] PRN 1) stage 1A left breast cancer ER+/MA+/HER2+ pT1c pN0 cM0 s/p left partial mastectomy [...] DO Hematology/Medical Oncology documented in this encounter [facility] 03-06-2023 Consult note Formatting of th is note is different from the original. RADIATION ONCOLOGY INITIAL CONSULTATION PATIENT: Madiha Perales DATE OF SERVICE: 03/06/23 : 1945 AGE: 78 y.o. PRIMARY SITE AND HISTOPATHOLOGY: Left breast, grade 3 invasive ductal carcinoma, ER positive, MA positive, HER2 positive. STAGE: cT1b N0 M0, [...] the left breast. Biopsy was performed at [facility] on 01/28/2023. This revealed grade 3 invasive ductal carcinoma measuring at least 8 mm in dimension. ER positive at 100%, MA positive at 70% and HER2 positive at [...] back pain Breast calcifications on mammogram Dementia ([facility]) Depression Eczema H/O colonoscopy Hemorrhoid Hx of rosacea Lower extremity edema MARCY (obstructive sleep apnea) The patient wears CPAP Parkinson disease ([facility]) Stroke ([facility]) 2009 Torn meniscus Uterine cancer ([facility]/HCC) ([facility]) 2005 PAST SURGICAL HISTORY: Past Surgical History: [...] F (36.2 C) Resp 20 Ht 5' 5" (1.651 m) Wt 202 lb 4.8 oz [...] CN 2-12 grossly intact except full vision santoro were not tested. Able to hear light [...] the first planning session is at the [facility] and the rest of the appointments would be at the [facility]. We thank you for the consultation. Vicki Diego MD [facility] Department of Radiation Oncology is an Accredited Facility of the [employer] (ACR). Total time: 65 [...] directly addressed to the provider for clarification. [facility] 03-06-2023 Consult note Formatting of th is note is different from the original. RADIATION ONCOLOGY INITIAL CONSULTATION PATIENT: Madiha Perales DATE OF SERVICE: 03/06/23 : 1945 AGE: 78 y.o. PRIMARY SITE AND HISTOPATHOLOGY: Left breast, grade 3 invasive ductal carcinoma, ER positive, MA positive, HER2 positive. STAGE: cT1b N0 M0, [...] the left breast. Biopsy was performed at [facility] on 01/28/2023. This revealed grade 3 invasive ductal carcinoma measuring at least 8 mm in dimension. ER positive at 100%, MA positive at 70% and HER2 positive at [...] apnea) The patient wears CPAP Parkinson disease ([facility]) Stroke ([facility]) 2009 Torn meniscus Uterine cancer (CMS/HCC) ([facility]) 2005 PAST SURGICAL HISTORY: Past Surgical History: [...] F (36.2 C) Resp 20 Ht 5' 5" (1.651 m) Wt 202 lb 4.8 oz [...] CN 2-12 grossly intact except full vision santoro were not tested. Able to hear light [...] the first planning session is at the [facility] and the rest of the appointments would be at the [facility]. We thank you for the consultation. Vicki Diego MD [facility] [place] Department of Radiation Oncology is an Accredited Facility of the [employer] (ACR). Total time: 65 [...] provider for clarification. documented in this encounter [facility] 03-06-2023 Nurse Note The patient is here with her at [facility] for a new consult with [...] patient resource guide. The patient verbalized understanding. [facility] 03-06-2023 Nurse Note The patient is here with her at [facility] for a new consult with [...] patient verbalized understanding. documented in this encounter [facility] 02-27-2023 History of Present illness Narrative [...] family would like to be seen at [facility]. Referral has been sent. She can return to see me in 6 months to assess her progress. Office Visit on 02/27/23 CONSULT TO ONCOLOGY RAD/ONC CONSULT Torrie Choi MD documented in this encounter [facility] 02-26-2023 Miscellaneous Notes Patient daughter [...] doesn't she pathology for the tumor??? Wesley [phone] documented in this encounter [facility] 02-12-2023 History of Present illness [...] has not fallen. While being evaluated at [facility] preadmission testing for upcoming breast cancer surgery, [...] or grammatical errors documented in this encounter [facility] Work Phone: 02-10-2023 History of Present illness Narrative I have reviewed the EMANUEL localization request for Dr. Choi. Left breast: 3:00 posterior depth, invasive ductal carcinoma, HydroMARK butterfly clip, EMANUEL localization. Images marked are dated 01/28/2023. This is a nonbillable encounter. documented in this encounter [facility] 02-06-2023 Miscellaneous Notes Spoke with [...] Follow up with PCP Call taken by rn labor and delivery today: Patient daughter called about some concerns PACC appt PA notice patients feet were swollen. Patient doesn't wear cpmpression socks. Should they attempt to get some before the surgery and can you place an order for these? Call Alicia or stevie [phone] or Christiano her [phone] Please see previous note from 02/05/23 Breast [...] is scheduled on 02/18. Please call at [phone] Thank You documented in this encounter [facility] 02-06-2023 Miscellaneous Notes Please see encounter from 02/05/23. This encounter closed. Patient daughter called about some concerns PACC appt PA notice patients feet were swollen. Patient doesn't wear cpmpression socks. Should they attempt to get some before the surgery and can you place an order for these? Call Alicia or stevie [phone] or Christiano her [phone] documented in this encounter [facility] 02-04-2023 History and physical note [...] manage symptoms. Procedure scheduled on 02/18/2023 at [place]. REVIEW OF SYSTEMS: General: No weight loss, [...] hardware REMOVE CATARACT, INSERT LENS, INTRACAPSUL 2012 FAMILY HISTORY Problem Relation Age of Onset [...] (Src) 97.1 (Temporal) Resp 16 Ht 5' 5.5" (1.66m) Wt 206 lb (93.4kg) SpO2 97% [...] or any previous visit (from the past 24087 hour(s)). Assessment Patient has the following medical [...] amyloid angiopathy, the rebleeding risk in the chcf is probably in the range of ~5% per year." MARCY on CPAP Assessment: Adherent to CPAP [...] TO PENICILLIN ALLERGY Scheduling Instructions: Please call [phone] to set up an urgent consult. Multivitamin capsule Sig: Take 1 capsule by mouth once daily. Instructions Given to Patient: Instructions located in the after visit summary. Patient given verbal and written preop instructions and voices comprehension and compliance. SIGNATURE: Jolly Dooley PA-C PATIENT NAME: Madiha Perales DATE: February 05, 2023 TIME: 11:21 AM PAGER/CONTACT #: documented in this encounter [facility] 02-04-2023 Instructions Jolly Dooley PA-C - 02/04/2023 11:05 AM EDT Images from the original note were not included. PATIENT PREOPERATIVE INSTRUCTIONS Torrie Choi MD has scheduled you for your procedure at this surgery center: [place]: [phone] -- [address] [facility] [address]. Please read below carefully for your personalized [...] Procedures: - YOU MUST HAVE A RESPONSIBLE HOLDER PILE DRIVING TAKE YOU HOME. A STEEL SHOT HEADER OPERATOR OR LINE PRODUCER CANNOT BE MADE A RESPONSIBLE HOLDER PILE DRIVING. - We recommend that a responsible person [...] Advance Directive, please fax a copy to [phone] or email to for it to be [...] Jolly Dooley PA-C documented in this encounter [facility] 02-03-2023 History of Present illness Narrative General Surgery New Patient H&P PATIENT NAME: Madiha Perales Assessment ASSESSMENT/PLAN: (C50.412, Z17.0) Malignant neoplasm of upper-outer quadrant of left breast in female, estrogen receptor positive (HCC) (primary encounter diagnosis) Citlaly presents with a new diagnosis of left breast cancer, ER/MA positive and Her-2 positive. We discussed proceeding with surgical management. Options given including mastectomy versus breast conservation. She would like to proceed with lumpectomy with sentinel lymph node biopsy. Risks including bleeding, infection, lymphedema, the need for more surgery, and recurrent tumor were explained to the patient and her family and she would like to proceed. She will be scheduled for EMANUEL Police Crime Scene Technician placement. Surgery is scheduled for February 18. [...] EXAM: BP 128/83 Pulse 74 Ht 5' 5" (1.65m) Wt 203 lb (92.1kg) BMI 33.78 [...] ultrasound-guided core biopsy: ---Invasive ductal carcinoma, preliminary Tarpley grade 3 (of 3), measuring at least 8 mm in greatest dimension. Breast Biomarkers RESULTS: Estrogen Receptor (ER) Positive 100 % Stain intensity: strong Internal controls: present and stained as expected External controls: appropriately stained Progesterone Receptor (MA) Positive 70 % Stain intensity: strong Internal controls: present and stained as expected External controls: appropriately stained HER2 (ERBB2) IMMUNOHISTOCHEMISTRY ASSAY Interpretation: POSITIVE for HER2 (ERBB2) Expression Score: 3+ Torrie Choi MD documented in this encounter [facility] 02-03-2023 Procedure note Anticipated Surgical Procedure/ CPT Code: left LUMPECTOMY WITH SENTINEL LYMPH NODE BIOPSY - 28222-551, 13628-659, [id number], with EMANUEL Anticipated Anesthetic: General Patient weight: There were no vitals taken for this visit. BMI: There is no height or weight on file to calculate BMI. 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 Rausch. [place] office staff will assist patient with a surgical consult appt with Dr. Choi/ Dr. Moore. Patient verbalized understanding. documented in this encounter [facility] 01-28-2023 Miscellaneous Notes Patient provided At Home Instructions pamphlet and Dr. Rausch spoke with her and her about after care and results. documented in this encounter [facility] 01-23-2023 History of Present illness [...] in 6 months documented in this encounter [facility] Work Phone: 01-21-2023 History of Present illness [...] 2023 8:23 AM documented in this encounter [facility] 11-27-2022 History of Present illness [...] IV DATA: Not applicable SIGNED BY: RT Parish(R) November 27, 2022 3:56 PM documented in this encounter [facility] 10-30-2022 History of Present illness [...] the skin lesion. documented in this encounter [facility] Work Phone: 10-24-2022 History of Present illness [...] 40 minute appointment documented in this encounter [facility] Work Phone: 09-21-2021 Miscellaneous Notes September 21, 2021 PID: [id number] Madiha Perales [address] [place] [place] [address] Dear Ms. Perales, We are pleased to [...] report will be kept on file at [facility] as part of your permanent medical record and are available for your continuing care. Thank you for allowing us to help in meeting your health care needs. Sincerely, Dr. Herring Interpreting Radiologist [place] (Normal over 40) documented in this encounter [facility] 09-21-2021 History of Present illness [...] 2021 8:29 AM documented in this encounter [facility] 07-13-2020 History of Present illness [...] fall.Medicare visit was done at last appointment. [facility] Work Phone: Evaluation note Diagnosis Seborrheic keratosis- Primary documented in this encounter [facility] Work Phone: Evaluation note* Diagnosis Seborrheic keratosis- Primary Pigmented skin lesion suspicious for malignant neoplasm documented in this encounter [facility] Work Phone: Evaluation note* Diagnosis Abnormal finding on radiological examination of breast- Primary Other (abnormal) findings on radiological examination of breast [facility] Diagnosis Abnormal finding on radiological examination of breast- Primary Other (abnormal) findings on radiological examination of breast [facility] Abnormal finding on radiological examination of breast Other (abnormal) findings on radiological examination of breast [facility] Diagnosis Parkinsonism, unspecified Parkinsonism type (CMS/HCC)- Primary Depression with anxiety Dysthymic disorder Repeated falls 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CMS/HCC) documented in this encounter [facility] Work Phone: Evaluation note* Diagnosis Abnormal finding on radiological examination of breast Other (abnormal) findings on radiological examination of breast documented in this encounter [facility] note* Diagnosis Malignant neoplasm of upper-outer quadrant of left breast in female, estrogen receptor positive (HCC)- Primary Malignant neoplasm of upper-outer quadrant of left breast in female, estrogen receptor positive (HCC) documented in this encounter [facility] note* Diagnosis Malignant neoplasm of upper-outer quadrant of left breast in female, estrogen receptor positive (HCC)- Primary Malignant neoplasm of upper-outer quadrant of left breast in female, estrogen receptor positive (HCC) documented in this encounter [facility] note* Diagnosis Pre-op evaluation- Primary Preoperative examination, [...] receptor positive (HCC) documented in this encounter [facility] note* Diagnosis Malignant neoplasm of upper-outer quadrant of left breast in female, estrogen receptor positive (HCC) Malignant neoplasm of upper-outer quadrant of left breast in female, estrogen receptor positive (HCC) documented in this encounter [facility] note* Diagnosis Depression with anxiety- Primary Dysthymic disorder Repeated falls Parkinsonism, unspecified Parkinsonism type (CMS/HCC) Bilateral lower extremity edema documented in this encounter [facility] Work Phone: Evaluation note* Diagnosis Malignant neoplasm of upper-outer quadrant of left breast in female, estrogen receptor positive (HCC)- Primary documented in this encounter [facility] note* Diagnosis Malignant neoplasm of upper-outer quadrant of left breast in female, estrogen receptor positive (HCC)- Primary documented in this encounter [facility] note* Diagnosis Malignant neoplasm of upper-outer quadrant of left breast in female, estrogen receptor positive (HCC)- Primary Other general symptoms and signs documented in this encounter [facility] note* Diagnosis Malignant neoplasm of upper-outer quadrant of left breast in female, estrogen receptor positive (HCC) documented in this encounter [facility] note* Diagnosis Malignant neoplasm of upper-outer quadrant of left breast in female, estrogen receptor positive (HCC)- Primary [facility] Diagnosis Malignant neoplasm of upper-outer quadrant of left breast in female, estrogen receptor positive (HCC) Other general symptoms and signs [facility] Malignant neoplasm of upper-outer quadrant of left breast in female, estrogen receptor positive (HCC)- Primary [facility] Diagnosis Malignant neoplasm of upper-outer quadrant of left breast in female, estrogen receptor positive (HCC) [facility] Diagnosis Malignant neoplasm of upper-outer quadrant of left breast in female, estrogen receptor positive (HCC)- Primary [facility] Malignant neoplasm of upper-outer quadrant of left breast in female, estrogen receptor positive (HCC)- Primary [facility] Diagnosis Malignant neoplasm of upper-outer quadrant of left breast in female, estrogen receptor positive (HCC) [facility] Diagnosis Malignant neoplasm of upper-outer quadrant of left breast in female, estrogen receptor positive (HCC)- Primary [facility] Diagnosis Malignant neoplasm of upper-outer quadrant of left breast in female, estrogen receptor positive (HCC)- Primary [facility]* Diagnosis Malignant neoplasm of upper-outer quadrant of left breast in female, estrogen receptor positive (HCC) [facility]* Diagnosis Malignant neoplasm of upper-outer quadrant of left breast in female, estrogen receptor positive (HCC) [facility] Diagnosis Malignant neoplasm of upper-outer quadrant of left breast in female, estrogen receptor positive (HCC)- Primary [facility] Diagnosis Malignant neoplasm of upper-outer quadrant of left breast in female, estrogen receptor positive (HCC) [facility] Diagnosis Malignant neoplasm of upper-outer quadrant of left breast in female, estrogen receptor positive (HCC)- Primary [facility] Diagnosis Encounter for monitoring cardiotoxic drug therapy [facility] Diagnosis Malignant neoplasm of upper-outer quadrant of left breast in female, estrogen receptor positive (HCC)- Primary [facility] Diagnosis Malignant neoplasm of upper-outer quadrant of left breast in female, estrogen receptor positive (HCC) [facility] Diagnosis Malignant neoplasm of upper-outer quadrant of left breast in female, estrogen receptor positive (HCC) Localized edema Edema documented in this encounter [facility] note* Diagnosis Malignant neoplasm of upper-outer quadrant of left breast in female, estrogen receptor positive (HCC)- Primary Encounter for monitoring cardiotoxic drug therapy documented in this encounter [facility] note* Diagnosis Malignant neoplasm of upper-outer quadrant of left breast in female, estrogen receptor positive (HCC) Localized edema Edema [facility] Diagnosis Malignant neoplasm of upper-outer quadrant of left breast in female, estrogen receptor positive (HCC) Falling Unspecified fall Hypotension, unspecified hypotension type documented in this encounter [facility] note* Diagnosis Malignant neoplasm of upper-outer quadrant of left breast in female, estrogen receptor positive (HCC) [facility] Diagnosis Malignant neoplasm of upper-outer quadrant of left breast in female, estrogen receptor positive (HCC)- Primary [facility] Diagnosis Malignant neoplasm of upper-outer quadrant of left breast in female, estrogen receptor positive (HCC) [facility] Diagnosis Malignant neoplasm of upper-outer quadrant of left breast in female, estrogen receptor positive (HCC)- Primary [facility] Diagnosis Malignant neoplasm of upper-outer quadrant of left breast in female, estrogen receptor positive (HCC) documented in this encounter [facility] note* Diagnosis Encounter for monitoring cardiotoxic drug therapy documented in this encounter [facility] note* Diagnosis Parkinsonism, unspecified Parkinsonism type- Primary Toxic effect of chemotherapy Dehydration Malignant neoplasm of right female breast, unspecified estrogen receptor status, unspecified site of breast (CMS/HCC) documented in this encounter [facility] Work Phone: Evaluation note* Diagnosis Malignant neoplasm of upper-outer quadrant of left female breast, unspecified estrogen receptor status (HCC) documented in this encounter [facility] note* Diagnosis Malignant neoplasm of upper-outer quadrant of left breast in female, estrogen receptor positive (HCC) (HCC)- Primary [facility] Diagnosis Malignant neoplasm of upper-outer quadrant of left breast in female, estrogen receptor positive (HCC) (HCC) documented in this encounter [facility] note* Diagnosis Malignant neoplasm of upper-outer quadrant of left breast in female, estrogen receptor positive (HCC) (HCC)- Primary [facility] Diagnosis Malignant neoplasm of upper-outer quadrant of left breast in female, estrogen receptor positive (HCC) (HCC)- Primary [facility] Diagnosis Admission for therapeutic drug monitoring Encounter for therapeutic drug monitoring Encounter for monitoring cardiotoxic drug therapy documented [facility] encounter [facility]* Diagnosis Parkinsonism, unspecified Parkinsonism type- Primary Malignant neoplasm of right female breast, unspecified estrogen receptor status, unspecified site of breast (CMS/HCC) 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CMS/HCC) Medicare annual wellness visit, subsequent Bilateral lower extremity edema documented in this encounter [facility] Work Phone: Evaluation note* Diagnosis Thyroid nodule Nontoxic uninodular goiter documented in this encounter [facility] Work Phone: Evaluation note* Diagnosis Nontoxic single thyroid nodule Nontoxic uninodular goiter documented in this encounter [facility] Work Phone: Evaluation note* Diagnosis Malignant neoplasm of upper-outer quadrant of left breast in female, estrogen receptor positive (HCC) (HCC) documented in this encounter [facility] note* Diagnosis Malignant neoplasm of upper-outer quadrant of left breast in female, estrogen receptor positive (HCC) (HCC) documented in this encounter [facility]* Diagnosis Malignant neoplasm of upper-outer quadrant of left breast in female, estrogen receptor positive (HCC) (HCC)- Primary documented in this encounter [facility]* Diagnosis Malignant neoplasm of upper-outer quadrant of left breast in female, estrogen receptor positive (HCC) (HCC)- Primary Encounter for monitoring cardiotoxic drug therapy Asymptomatic menopausal state Encounter for monitoring anastrozole therapy documented in this encounter [facility]* Diagnosis Malignant neoplasm of upper-outer quadrant of left breast in female, estrogen receptor positive (HCC) (HCC) [facility] Diagnosis Malignant neoplasm of upper-outer quadrant of left breast in female, estrogen receptor positive (HCC) (HCC)- Primary [facility] Diagnosis Malignant neoplasm of upper-outer quadrant of left breast in female, estrogen receptor positive (HCC) (HCC) Asymptomatic menopausal state Encounter for monitoring anastrozole therapy [facility] Diagnosis Malignant neoplasm of upper-outer quadrant of left breast in female, estrogen receptor positive (HCC)- Primary [facility] Diagnosis Admission for therapeutic drug monitoring Encounter for therapeutic drug monitoring Encounter for monitoring cardiotoxic drug therapy documented in this encounter [facility] note* Diagnosis Malignant neoplasm of upper-outer quadrant of left breast in female, estrogen receptor positive (HCC) documented in this encounter [facility] note* Diagnosis Malignant neoplasm of upper-outer quadrant of left breast in female, estrogen receptor positive (HCC) [facility] Diagnosis Malignant neoplasm of upper-outer quadrant of left breast in female, estrogen receptor positive (HCC)- Primary [facility] Diagnosis Malignant neoplasm of upper-outer quadrant of left breast in female, estrogen receptor positive (HCC)- Primary documented in this encounter [facility] note* Diagnosis Malignant neoplasm of upper-outer quadrant of left breast in female, estrogen receptor positive (HCC)- Primary [facility] Diagnosis 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 Parkinsonism, unspecified Parkinsonism type (Multi) Depression with anxiety Dysthymic disorder Pneumonia due to COVID-19 virus Malignant neoplasm of right female breast, unspecified estrogen receptor status, unspecified site of breast (Multi) documented in this encounter [facility] Work Phone: Evaluation note* Diagnosis Malignant neoplasm of upper-outer quadrant of left breast in female, estrogen receptor positive (HCC) documented in this encounter [facility] note* Diagnosis Malignant neoplasm of upper-outer quadrant of left breast in female, estrogen receptor positive (HCC)- Primary [facility] Diagnosis Malignant neoplasm of upper-outer quadrant of left breast in female, estrogen receptor positive (HCC) documented in this encounter [facility] note* Diagnosis Visit for screening mammogram- Primary Other screening mammogram Malignant neoplasm of upper-outer quadrant of left breast in female, estrogen receptor positive (HCC) documented in this encounter [facility] note* Diagnosis Pre-op evaluation- Primary Preoperative examination, [...] positive (HCC)- Primary documented in this encounter [facility] note* Diagnosis Malignant neoplasm of upper-outer quadrant of left breast in female, estrogen receptor positive (HCC)- Primary documented in this encounter [facility] note* Diagnosis Pre-op evaluation- Primary Preoperative examination, [...] receptor positive (HCC) documented in this encounter [facility] note* Diagnosis Malignant neoplasm of upper-outer quadrant of left breast in female, estrogen receptor positive (HCC) documented in this encounter [facility] note* Diagnosis Malignant neoplasm of upper-outer quadrant of left breast in female, estrogen receptor positive (HCC) documented in this encounter [facility] note* Diagnosis Parkinsonism, unspecified Parkinsonism type (Multi)- Primary Malignant neoplasm of right female breast, unspecified estrogen receptor status, unspecified site of breast (Multi) Depression with anxiety Dysthymic disorder Elevated TSH Other abnormal blood chemistry Obesity (BMI 30.0-34.9) Other specified depressive episodes documented in this encounter [facility] Work Phone: Evaluation note* Diagnosis Malignant neoplasm of upper-outer quadrant of left breast in female, estrogen receptor positive (HCC) documented in this encounter [facility]* Diagnosis Malignant neoplasm of upper-outer quadrant of left breast in female, estrogen receptor positive (HCC) [facility] Diagnosis Malignant neoplasm of upper-outer quadrant of left breast in female, estrogen receptor positive (HCC)- Primary [facility] Diagnosis Medicare annual wellness visit, subsequent- Primary Depression with anxiety Dysthymic disorder Elevated TSH Other abnormal blood chemistry Parkinson's disease without dyskinesia or fluctuating manifestations Vitamin D deficiency Do not resuscitate documented in this encounter [facility] Work Phone: Evaluation note* Diagnosis Pre-op evaluation- Primary Preoperative examination, [...] allergy Personal history of allergy to penicillin Transient confusion- Primary Unspecified psychosis Abnormal MRI of head Nonspecific (abnormal) findings on radiological and other examination of skull and head History of cerebral hemorrhage Personal history of other diseases of circulatory system Silent micro-hemorrhage of brain (HCC) Abnormal EEG Nonspecific abnormal electroencephalogram (EEG) Cervicogenic headache Headache [facility] Mrs. Perales was [...] last checked in June, all reassuring. [facility] Work Phone: History of Present [...] recent months, despite using [employer] twice daily. [facility] Work Phone: Instructions* Attachments The following attachments cannot be sent through Care Everywhere. * DASH Diet (Martiniquais) * Preventing falls in adults (Martiniquais) [facility] Reason for referral (narrative)* Diagnostic Procedure Only (Routine) - Closed Specialty Diagnoses / Procedures [facility] To Contact [facility] Diagnoses Abnormal finding on radiological examination of breast Procedures US BREAST LTD LEFT US BREAST UNI REAL TIME WITH IMAGE LIMITED Jannette Mendez MD [address] [facility] [place] [id number] [facility] [address] [place] [phone] Referral ID Status Reason Start Date Expiration Date V isits Requested Visits Authorized [id number] Closed Auto-Generate d Referral 01/21/2023 06/22/2023 1 1 [facility] for referral (narrative)* Diagnostic Procedure Only (Routine) - Authorized Specialty Diagnoses / Procedures Referred By [facility] Referred To Contact [facility] Diagnoses Abnormal finding on radiological examination of breast Procedures US BIOPSY BREAST LEFT BX BREAST W/DEVICE 1ST LESION ULTRASOUND GUID Jannette Mendez MD [address] [place] [address] [facility] [address] [place] [phone] Referral ID Status Reason Start Date Expiration Date Visits Requested Visits Authorized [id number] Authorized Auto-Generat ed Referral 01/21/2023 02/20/2024 1 1 [facility] for referral (narrative)* Diagnostic Procedure Only (Routine) - Closed Specialty Diagnoses / Procedures Referred By [facility] Referred To Contact [facility] Diagnoses Abnormal finding on radiological examination of breast Procedures US BREAST LTD LEFT US BREAST UNI REAL TIME WITH IMAGE LIMITED Jannette Mendez MD [address] [place] [address] [facility] [address] [place] [address] Referral ID Status Reason Start Date Expiration Date V isits Requested Visits Authorized [id number] Closed Auto-Generate d Referral 01/21/2023 06/22/2023 1 1 [facility] for referral (narrative)* Diagnostic Procedure Only (Routine) - Closed Specialty Diagnoses / Procedures Referred By Ashley t Referred To Contact [facility] Diagnoses Abnormal finding on radiological examination of breast Procedures US BIOPSY BREAST LEFT BX BREAST W/DEVICE 1ST LESION ULTRASOUND Jannette Zazueta MD [address] [place] [address] [facility] [address] [place] [phone] Referral ID Status Reason Start Date Expiration Date V isits Requested Visits Authorized [id number] Closed Auto-Generate d Referral 01/21/2023 02/20/2024 1 1 [facility] for referral (narrative)* Diagnostic Procedure Only (Routine) - Pending Review Specialty Diagnoses / Procedures Referred By Ashley isgala Referred To Contact [facility] Diagnoses Malignant neoplasm of upper-outer quadrant of left breast in female, estrogen receptor positive (HCC) Procedures LEE NDL LOC W LEE GD LEFT PERQ DEVICE PLACEMENT BREAST LOC 1ST LES W/GDNCE Torrie Choi MD [facility] [address] [address] [facility] [address] [place] [phone] Referral ID Status Reason Start Date Expiration Date Visits Requested Visits Authorized [id number] Pending Review Auto-Generat ed Referral 02/03/2023 03/04/2024 1 1 T [facility] for referral (narrative)* Diagnostic Procedure Only (Routine) - New Request Specialty Diagnoses / Procedures Referred By Ashley sigala Referred To Contact [facility] Diagnoses Visit for screening mammogram Malignant neoplasm of upper-outer quadrant of left breast in female, estrogen receptor positive (HCC) Procedures LEE SCREENING W SHIVA SCREENING DIGITAL BREAST TOMOSYNTHESIS BI SCREENING MAMMOGRAPHY BI 2-VIEW BREAST INC Lucius Spicer PA-C [address] [place] [address] [facility] [address] [place] [address] Referral ID Status Reason Start Date Expiration Date Visits Requested Visits Authorized [id number] New Request Auto-Generat ed Referral 02/04/2024 03/04/2025 1 1 [facility] for referral (narrative)* Diagnostic Procedure Only (Routine) - Closed Specialty Diagnoses / Procedures Referred By Contac t Referred To Contact BR IMAGING Diagnoses Visit for screening mammogram Malignant neoplasm of upper-outer quadrant of left breast in female, estrogen receptor positive (HCC) Procedures LEE SCREENING W SHIVA SCREENING DIGITAL BREAST TOMOSYNTHESIS BI SCREENING MAMMOGRAPHY BI 2-VIEW BREAST INC Lucius Spicer PA-C [address] [place] [address] [facility] [address] [place] [address] Referral ID Status Reason Start Date Expiration Date V isits Requested Visits Authorized [id number] Closed Auto-Generate d Referral 02/04/2024 03/04/2025 1 1 T [facility] for referral (narrative)* Consultation (Routine) - Pending Review Specialty Diagnoses / Procedures Referred By Ashley t Referred To Contact Physical Therapy Diagnoses Parkinsonism, unspecified Parkinsonism type (Multi) Marie Devi MD [address] [facility], [place] [address] Referral ID Status Reason Start Date Expiration Date Visits Requested Visits Authorized [id number] Pending Review Specialty Services Required 02/18/2024 02/17/2025 1 1 [facility] Work Phone: Reason for visit Narrative* Diagnostic Procedure Only (Routine) - Closed Specialty Diagnoses / Procedures Referred By Ashley t Referred To Contact BR IMAGING Diagnoses Abnormal finding on radiological examination of breast Procedures US BREAST LTD LEFT US BREAST UNI REAL TIME WITH IMAGE LIMITED Jannette Mendez MD [address] [place] [address] [facility] [address] [place] [address] Referral ID Status Reason Start Date Expiration Date V isits Requested Visits Authorized [id number] Closed Auto-Generate d Referral 01/21/2023 06/22/2023 1 1 [facility] for visit Narrative* Diagnostic Procedure Only (Routine) - Closed Specialty Diagnoses / Procedures Referred By Contac t Referred To Contact BR IMAGING Diagnoses Abnormal finding on radiological examination of breast Procedures US BIOPSY BREAST LEFT BX BREAST W/DEVICE 1ST LESION ULTRASOUND GUID Jannette Mendez MD [address] [place] [id number] [facility] [address] [place] [phone] Referral ID Status Reason Start Date Expiration Date V isits Requested Visits Authorized [id number] Closed Auto-Generate d Referral 01/21/2023 02/20/2024 1 1 [facility] for visit Narrative* Diagnostic Procedure Only (Routine) - Closed Specialty Diagnoses / Procedures Referred By Ashley t Referred To Contact [facility] IMAGING Diagnoses Malignant neoplasm of upper-outer quadrant of left breast in female, estrogen receptor positive (HCC) Procedures LEE NDL LOC W LEE GD LEFT PERQ DEVICE PLACEMENT BREAST LOC 1ST LES W/GDNCE Torrie Choi MD [facility] [address] [address] [facility] [address] [place] [phone] Referral ID Status Reason Start Date Expiration Date V isits Requested Visits Authorized [id number] Closed Auto-Generate d Referral 02/03/2023 03/04/2024 1 1 [facility] for visit Narrative* Diagnostic Procedure Only (Routine) - Closed Specialty Diagnoses / Procedures Referred By Contac t Referred To Contact BR IMAGING Diagnoses Visit for screening mammogram Malignant neoplasm of upper-outer quadrant of left breast in female, estrogen receptor positive (HCC) Procedures LEE SCREENING W SHIVA SCREENING DIGITAL BREAST TOMOSYNTHESIS BI SCREENING MAMMOGRAPHY BI 2-VIEW BREAST INC Lucius Spicer PA-C [address] [place] [address] [facility] [address] [place] [address] Referral ID Status Reason Start Date Expiration Date V isits Requested Visits Authorized [id number] Closed Auto-Generate d Referral 02/04/2024 03/04/2025 1 1 [facility] Family History No Family History [...] immunization * 1: Have you ever had Guillain-[place] syndrome? (a viral illness resulting in neurological symptoms, including paralysis) (Yes/No): NO * 2. Have you ever had an anaphylactic reaction to prior flu vaccines? 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 Advance Directive(s) 01/17/2020 4:27 PM [...] Agents on File Name Relationship [facility] Christiano Perales Spouse Health Care Agent Date Activated Date Inactivated Comments 12/09/2024 4:54 PM 12/10/2024 6:28 PM Question Answer Comments DNR Order Discussed With: Surrogate Decision Alan er Date Activated Date Inactivated Comments 12/09/2024 2:40 PM 12/09/2024 4:54 PM Question Answer Comments Order Discussed With: Surrogate Decision Maker Date Activated Date Inactivated Comments 12/03/2024 12:52 PM 12/09/2024 2:40 PM Question Answer Comments DNR Order Discussed With: Patient Date Activated Date Inactivated Comments 06/12/2023 7:03 PM 10/08/2023 8:56 AM Date Activated Date Inactivated Comments 06/05/2023 5:03 PM 06/08/2023 4:18 PM Question Answer Comments Full Code Order Discussed With: Patient Summary Purpose Reason for Referral Specialty Diagnoses / Procedures Referred By Contac t Referred To Contact Diagnoses Seborrheic keratosis Pigmented skin lesion suspicious for malignant neoplasm Procedures Shaving Epidermal/Dermal Dara Sorensen, DO [address] [facility], [place] [phone] Referral ID Status Reason Start Date Expiration Date V isits Requested Visits Authorized [id number] Authorized 10/30/2022 04/28/2023 1 1 Specialty Diagnoses / Procedures Referred By Contac t Referred To Contact Radiation Oncology Diagnoses Malignant neoplasm of upper-outer quadrant of left breast in female, estrogen receptor positive (HCC) Procedures RAD/ONC CONSULT OFFICE/OUTPATIENT [facility] 60-74 MINUTES Torrie Choi MD [address] [id number] Referral ID Status Reason Start Date Expiration Date Visits Requested Visits Authorized [id number] Authorized PCP Requested Referral 02/27/2023 02/27/2024 1 1 Specialty Diagnoses / Procedures Referred By Contac t Referred To Contact Oncology Diagnoses Malignant neoplasm of upper-outer quadrant of left breast in female, estrogen receptor positive (HCC) Procedures CONSULT TO ONCOLOGY OFFICE/OUTPATIENT [facility] MDM 60-74 MINUTES Torrie Choi MD [address] [address] Referral ID Status Reason Start Date Expiration Date Visits Requested Visits Authorized [id number] Authorized PCP Requested Referral 02/27/2023 02/27/2024 1 1 Specialty Diagnoses / Procedures Referred By Contac t Referred To Contact Cardiology Diagnoses Malignant neoplasm of upper-outer quadrant of left breast in female, estrogen receptor positive (HCC) Other general symptoms and signs Procedures Transthoracic echocardiogram (TTE) complete with contrast, bubble, strain, and 3D PRN MA ECHO TTHRC R-T 2D W/WOM-MODE COMPL SPEC&COLR D MA TTE W OR WO FOL WCON,DOPPLER Stevie Escobedo, DO [address] [place] [address] Referral ID Status Reason Start Date Expiration Date V isits Requested Visits Authorized [id number] Authorized 03/18/2023 09/14/2023 1 1 Referral ID Status Reason Start Date Expiration Date Visits Re quested Visits Authorized [id number] Closed 03/18/2023 09/14/2023 1 1 Specialty Diagnoses / Procedures [facility] To Contact Card[facility] Diagnoses Encounter for monitoring cardiotoxic drug therapy Procedures Transthoracic echocardiogram (TTE) complete with contrast, bubble, strain, and 3D PRN MA ECHO TTHRC R-T 2D W/WOM-MODE COMPL SPEC&COLR D MA TTE W OR WO FOL WCON,DOPPLER Stevie Escobedo, DO [address] [place] [address] Referral ID Status Reason Start Date Expiration Date V isits Requested Visits Authorized [id number] Authorized 05/20/2023 05/19/2024 1 1 Specialty Diagnoses / Procedures [facility] Referred To Contact Cardiology Diagnoses Malignant neoplasm of upper-outer quadrant of left breast in female, estrogen receptor positive (HCC) Localized edema Procedures Vascular US lower extremity venous duplex left Stevie Escobedo, DO [address] [place] [address] Referral ID Status Reason Start Date Expiration Date Visits Re quested Visits Authorized [id number] Closed 06/03/2023 06/02/2024 1 1 Referral ID Status Reason Start Date Expiration Date Visits Re quested Visits Authorized [id number] Closed 05/20/2023 05/19/2024 1 1 Specialty Diagnoses / Procedures Referred By Contac t Referred To Contact Radiology Diagnoses Malignant neoplasm of upper-outer quadrant of left female breast, unspecified estrogen receptor status (HCC) Procedures CT Sim WO Vicki Diego MD [address] [facility] [address] [place] [address] Referral ID Status Reason Start Date Expiration Date Visits Re quested Visits Authorized [id number] Closed 07/02/2023 07/01/2024 1 1 Specialty Diagnoses / Procedures Referred By Contac t Referred To Contact Cardiology Diagnoses Admission for therapeutic drug monitoring Encounter for monitoring cardiotoxic drug therapy Procedures Transthoracic echocardiogram (TTE) complete with contrast, bubble, strain, and 3D PRN MA ECHO TTHRC R-T 2D W/WOM-MODE COMPL SPEC&COLR D MA TTE W OR WO FOL WCON,DOPPLER Fanny, Stevie E, DO [address] [facility] [address] [place] [address] Referral ID Status Reason Start Date Expiration Date V isits Requested Visits Authorized [id number] Pending Review 07/29/2023 07/28/2024 1 1 Specialty Diagnoses / Procedures Referred By Contac t Referred To Contact Radiology Diagnoses Thyroid nodule Procedures US thyroid Marie Devi MD [address] [place] [address], [facility] [address] [place] [address] Referral ID Status Reason Start Date Expiration Date Visits Requested Visits Authorized [id number] Pending Review Perform Procedure 07/30/2023 07/29/2024 1 1 Specialty Diagnoses / Procedures Referred By Contac t Referred To Contact Radiology Diagnoses Nontoxic single thyroid nodule Procedures US thyroid Marie Devi MD [address] [place] [address], [facility] [address] [place] [address] Referral ID Status Reason Start Date Expiration Date Visits Requested Visits Authorized [id number] Authorized Perform Procedure 07/30/2023 07/29/2024 1 1 Referral ID Status Reason Start Date Expiration Date Visits Requested Visits Authorized [id number] Pending Review Perform Procedure 07/26/2023 07/25/2024 1 1 Specialty Diagnoses / Procedures Referred By Contac t Referred To Contact Cardiology Diagnoses Admission for therapeutic drug monitoring Encounter for monitoring cardiotoxic drug therapy Procedures Transthoracic echocardiogram (TTE) complete with contrast, bubble, strain, and 3D PRN MA ECHO TTHRC R-T 2D W/WOM-MODE COMPL SPEC&COLR D MA TTE W OR WO FOL WCON,DOPPLER Stevie Escobedo DO [address] [facility] [address] [place] [address] Referral ID Status Reason Start Date Expiration Date Visits Re quested Visits Authorized [id number] Closed 07/29/2023 07/28/2024 1 1 Medications Administered [...] or prosecute any alcohol or drug abuse patient.[facility] the event this information is protected by the Federal Confidentiality of Alcohol and Drug Abuse Patient Records regulations: The Federal rules restrict any use of the information to criminally investigate or prosecute any alcohol or drug abuse patient.[facility] CenterIn the event this information is protected by the Federal Confidentiality of Alcohol and Drug Abuse Patient Records regulations: The Federal rules restrict any use of the information to criminally investigate or prosecute any alcohol or drug abuse patient.[facility] CenterIn the event this information is protected by the Federal Confidentiality of Alcohol and Drug Abuse Patient Records regulations: The Federal rules restrict any use of the information to criminally investigate or prosecute any alcohol or drug abuse patient.[facility] CenterIn the event this information is protected by the Federal Confidentiality of Alcohol and Drug Abuse Patient Records regulations: The Federal rules restrict any use of the information to criminally investigate or prosecute any alcohol or drug abuse patient.[facility] CenterIn the event this information is protected by the Federal Confidentiality of Alcohol and Drug Abuse Patient Records regulations: The Federal rules restrict any use of the information to criminally investigate or prosecute any alcohol or drug abuse patient.[facility] CenterIn the event this information is protected by the Federal Confidentiality of Alcohol and Drug Abuse Patient Records regulations: The Federal rules restrict any use of the information to criminally investigate or prosecute any alcohol or drug abuse patient.[facility] CenterIn the event this information is protected by the Federal Confidentiality of Alcohol and Drug Abuse Patient Records regulations: The Federal rules restrict any use of the information to criminally investigate or prosecute any alcohol or drug abuse patient.[facility] CenterIn the event this information is protected by the Federal Confidentiality of Alcohol and Drug Abuse Patient Records regulations: The Federal rules restrict any use of the information to criminally investigate or prosecute any alcohol or drug abuse patient.[facility] CenterIn the event this information is protected by the Federal Confidentiality of Alcohol and Drug Abuse Patient Records regulations: The Federal rules restrict any use of the information to criminally investigate or prosecute any alcohol or drug abuse patient.[facility] CenterIn the event this information is protected by the Federal Confidentiality of Alcohol and Drug Abuse Patient Records regulations: The Federal rules restrict any use of the information to criminally investigate or prosecute any alcohol or drug abuse patient.[facility] CenterIn the event this information is protected by the Federal Confidentiality of Alcohol and Drug Abuse Patient Records regulations: The Federal rules restrict any use of the information to criminally investigate or prosecute any alcohol or drug abuse patient.[facility] CenterIn the event this information is protected by the Federal Confidentiality of Alcohol and Drug Abuse Patient Records regulations: The Federal rules restrict any use of the information to criminally investigate or prosecute any alcohol or drug abuse patient.[facility] CenterIn the event this information is protected by the Federal Confidentiality of Alcohol and Drug Abuse Patient Records regulations: The Federal rules restrict any use of the information to criminally investigate or prosecute any alcohol or drug abuse patient.[facility] CenterIn the event this information is protected by the Federal Confidentiality of Alcohol and Drug Abuse Patient Records regulations: The Federal rules restrict any use of the information to criminally investigate or prosecute any alcohol or drug abuse patient.[facility] CenterIn the event this information is protected by the Federal Confidentiality of Alcohol and Drug Abuse Patient Records regulations: The Federal rules restrict any use of the information to criminally investigate or prosecute any alcohol or drug abuse patient.[facility] CenterIn the event this information is protected by the Federal Confidentiality of Alcohol and Drug Abuse Patient Records regulations: The Federal rules restrict any use of the information to criminally investigate or prosecute any alcohol or drug abuse patient.[facility] CenterIn the event this information is protected by the Federal Confidentiality of Alcohol and Drug Abuse Patient Records regulations: The Federal rules restrict any use of the information to criminally investigate or prosecute any alcohol or drug abuse patient.[facility] CenterIn the event this information is protected by the Federal Confidentiality of Alcohol and Drug Abuse Patient Records regulations: The Federal rules restrict any use of the information to criminally investigate or prosecute any alcohol or drug abuse patient.[facility] CenterIn the event this information is protected by the Federal Confidentiality of Alcohol and Drug Abuse Patient Records regulations: The Federal rules restrict any use of the information to criminally investigate or prosecute any alcohol or drug abuse patient.[facility] CenterIn the event this information is protected by the Federal Confidentiality of Alcohol and Drug Abuse Patient Records regulations: The Federal rules restrict any use of the information to criminally investigate or prosecute any alcohol or drug abuse patient.[facility] CenterIn the event this information is protected by the Federal Confidentiality of Alcohol and Drug Abuse Patient Records regulations: The Federal rules restrict any use of the information to criminally investigate or prosecute any alcohol or drug abuse patient.[facility] CenterIn the event this information is protected by the Federal Confidentiality of Alcohol and Drug Abuse Patient Records regulations: The Federal rules restrict any use of the information to criminally investigate or prosecute any alcohol or drug abuse patient.[facility] CenterIn the event this information is protected by the Federal Confidentiality of Alcohol and Drug Abuse Patient Records regulations: The Federal rules restrict any use of the information to criminally investigate or prosecute any alcohol or drug abuse patient.[facility] CenterIn the event this information is protected by the Federal Confidentiality of Alcohol and Drug Abuse Patient Records regulations: The Federal rules restrict any use of the information to criminally investigate or prosecute any alcohol or drug abuse patient.[facility] Reason for Visit (unrecogniz ed section and content) Specialty Diagnoses / Procedures Referred By Ashley sigala Referred To Contact Radiology / RADIO MAMMO [facility] Diagnoses Screening Mammogram, Z12.31 Procedures MAMMOGRAM SCREENING Marie Devi MD [address] [place] [address] Radio Mammo [facility] [place] [address] Referral ID Status Reason Start Date Expiration Date V isits Requested Visits Authorized [id number] Outside PCP 09/21/2021 11/20/2021 1 1 Reason [...] 03/24/2023 Specialty Diagnoses / Procedures Referred By Ashley sigala Referred To Contact Cardiology Diagnoses Malignant neoplasm of upper-outer quadrant of left breast in female, estrogen receptor positive (HCC) Other general symptoms and signs Procedures Transthoracic echocardiogram (TTE) complete with contrast, bubble, strain, and 3D PRN MA ECHO TTHRC R-T 2D W/WOM-MODE COMPL SPEC&COLR D MA TTE W OR WO FOL WCON,Stevie Lizarraga DO [address] [facility] [address] [place] [address] Referral ID Status Reason Start Date Expiration Date Visits Re quested Visits Authorized [id number] Closed 03/18/2023 09/14/2023 1 1 Reason Comments OP Infusion Specialty Diagnoses / Procedures Referred By Contac t Referred To Contact Diagnoses Malignant neoplasm of upper-outer quadrant of left breast in female, estrogen receptor positive (HCC) Stevie Escobedo, DO [address] [place] [address] [facility] [address] [place] [address] Referral ID Status Reason Start Date Expiration Date V isits Requested Visits Authorized [id number] Authorized 03/21/2023 09/17/2023 2 2 Reason Comments Breast Cancer Reason Comments Follow-up Patient fell last we ek and called in and spoke to Nurse. Referral ID Status Reason Start Date Expiration Date V isits Requested Visits Authorized [id number] Authorized 03/21/2023 09/17/2023 999 1001 Reason Onset Date Comments order for ECHO 05/12/2023 Reason Onset Date Comments Orders 06/03/2023 Specialty Diagnoses / Procedures Referred By Contac t Referred To Contact Cardiology Diagnoses Malignant neoplasm of upper-outer quadrant of left breast in female, estrogen receptor positive (HCC) Localized edema Procedures Vascular US lower extremity venous duplex left Stevie Escobedo, DO [address] [facility] [address] [place] [address] Referral ID Status Reason Start Date Expiration Date Visits Re quested Visits Authorized [id number] Closed 06/03/2023 06/02/2024 1 1 Reason Onset Date Comments Lab Orders 06/09/2023 Reason Onset Date Comments Nutrition Counseling 06/11/2023 Specialty Diagnoses / Procedures Referred By Contac t Referred To Contact Cardiology Diagnoses Encounter for monitoring cardiotoxic drug therapy Procedures Transthoracic echocardiogram (TTE) complete with contrast, bubble, strain, and 3D PRN MA ECHO TTHRC R-T 2D W/WOM-MODE COMPL SPEC&COLR D MA TTE W OR WO FOL WCON,DOPPLER Stevie Escobedo, DO [address] [place] [address] Referral ID Status Reason Start Date Expiration Date Visits Re quested Visits Authorized [id number] Closed 05/20/2023 05/19/2024 1 1 Reason Comments Hospital Follow[place] [facility] [place] not [place] esponsive could not even stand, saying it was from the chemo Specialty Diagnoses / Procedures Referred By Ashley sigala Referred To Contact Radiology Diagnoses Malignant neoplasm of upper-outer quadrant of left female breast, unspecified estrogen receptor status (HCC) Procedures CT Sim WO Vicki Diego MD [address] [place] [address] Referral ID Status Reason Start Date Expiration Date Visits Re quested Visits Authorized [id number] Closed 07/02/2023 07/01/2024 1 1 Reason Comments Follow-up Specialty Diagnoses / Procedures Referred By Ashley sigala Referred To Contact Diagnoses Malignant neoplasm of upper-outer quadrant of left breast in female, estrogen receptor positive (HCC) (HCC) Stevie Escobedo DO [address] [facility] [address] [place] [address] [facility] [address] [place] [address] Referral ID Status Reason Start Date Expiration Date V isits Requested Visits Authorized [id number] Authorized 03/21/2023 09/17/2023 999 [id number] Reason Onset Date Comments Orders 07/29/2023 Reason Comments Medicare Annual Wellness Visit Subsequen t Pt presents for annual MWV- ABN [...] Procedures US thyroid Marie Devi MD [address] [facility] [place] [address] Referral ID Status Reason Start Date Expiration Date Visits Requested Visits Authorized [id number] Pending Review Perform Procedure 07/30/2023 07/29/2024 1 1 Specialty Diagnoses / Procedures Referred By Ashley sigala Referred To Contact Radiology Diagnoses Nontoxic single thyroid nodule Procedures US thyroid Marie Devi MD [address] [facility] [place] [address] Referral ID Status Reason Start Date Expiration Date Visits Requested Visits Authorized [id number] Authorized Perform Procedure 07/30/2023 07/29/2024 1 1 Referral ID Status Reason Start Date Expiration Date Visits Requested Visits Authorized [id number] Pending Review Perform Procedure 07/26/2023 07/25/2024 1 1 Referral ID Status Reason Start Date Expiration Date V isits Requested Visits Authorized [id number] Authorized 03/21/2023 09/17/2023 999 [id number] Referral ID Status Reason Start Date Expiration Date V isits Requested Visits Authorized [id number] Authorized 03/21/2023 09/17/2023 999 [id number] Specialty Diagnoses / Procedures Referred By Contac t Referred To Contact Cardiology Diagnoses Admission for therapeutic drug monitoring Encounter for monitoring cardiotoxic drug therapy Procedures Transthoracic echocardiogram (TTE) complete with contrast, bubble, strain, and 3D PRN MA ECHO TTHRC R-T 2D W/WOM-MODE COMPL SPEC&COLR D MA TTE W OR WO FOL WCON,DOPPLER Stevie Escobedo, DO [address] [place] [address] Referral ID Status Reason Start Date Expiration Date Visits Re quested Visits Authorized [id number] Closed 07/29/2023 07/28/2024 1 1 Specialty Diagnoses / Procedures Referred By Contac t Referred To Contact Diagnoses Malignant neoplasm of upper-outer quadrant of left breast in female, estrogen receptor positive (HCC) Stevie Escobedo, DO [address] [place] [address] [facility] [address] [place] [address] Referral ID Status Reason Start Date Expiration Date V isits Requested Visits Authorized [id number] Authorized 03/21/2023 09/17/2023 [id number] Reason Onset Date Comments Nutrition Counseling 10/06/2023 Specialty Diagnoses / Procedures Referred By Contac t Referred To Contact [facility] Medical Mily Selby [address] [place] [address] Referral ID Status Reason Start Date Expiration Date V isits Requested Visits Authorized [id number] New Request 10/15/2023 12/14/2023 Reason Comments Follow-up Pt is here for a hos pital follow up. Pt states she is doing better. Pt states she has no new concerns to discuss today. Reason Comments Breast Mass Reason Comments Patient Question Reason Comments Follow Up follow up Malignant neoplasm of upper-outer quadrant of left breast in female, estrogen receptor positive (HCC) [facility] Oncology Notes under scanned Documents Reason Comments Erroneous encounter-disregard Reason Comments Home Care Start of care confir mation call Specialty Diagnoses / Procedures Referred By Contrandolph sigala Referred To Contact Diagnoses Malignant neoplasm of upper-outer quadrant of left breast in female, estrogen receptor positive (HCC) Stevie Escobedo DO [address] [facility] [address] [place] [address] Phone: tel: fax: [facility] [address] [place] [address] Phone: tel: Reason Comments Follow-up Citlaly is here to follo w up for Parkinsonism/ dep. Her Marcos has a few questions to discuss today., Reason Comments Med Refill Reason Comments Medicare Annual Wellness Visit Juana sigala Pt presents for annual MWV- ABN was given to pt and signed, pt verbalized understanding. 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 Relationship Specialty Start Date End Date Marie Devi MD PCP - General Family Practice 07/16/13 Driveway Sealer Relationship Specialty Start Date End Date Marie Devi MD PCP - General Family Practice 07/16/13 Driveway Sealer Relationship Specialty Start Date End Date Marie Devi MD [address] [facility] [place] [address] PCP - General 08/19/12 Marie Devi MD [address] [facility] [place] [address] PCP - [employer] Medicare Advantage PCP 06/23/21 Driveway Sealer Relationship Specialty Start Date End Date Marie Devi MD [address] [facility] [place] [address] PCP - General 08/19/12 Marie Devi MD [address] [facility] [place] [address] PCP - [employer] Medicare Advantage PCP 06/23/21 Driveway Sealer Relationship Specialty Start Date End Date Marie Devi MD PCP - General Family Medicine 07/16/13 Driveway Sealer Relationship Specialty Start Date End Date Marie Devi MD PCP - General Family Medicine 07/16/13 Driveway Sealer Relationship Specialty Start Date End Date Marie Devi MD PCP - General Family Medicine 07/16/13 Driveway Sealer Relationship Specialty Start Date End Date Marie Devi MD PCP - General Family Medicine 07/16/13 Driveway Sealer Relationship Specialty Start Date End Date Marie Devi MD [address] [facility] [place] [address] PCP - General 08/19/12 Marie Devi MD [address] [facility] [place] [address] PCP - [employer] Medicare Advantage PCP 06/23/21 Driveway Sealer Relationship Specialty Start Date End Date Marie Devi MD PCP - General Family Medicine 07/16/13 Driveway Sealer Relationship Specialty Start Date End Date Marie Devi MD PCP - General Family Medicine 07/16/13 Driveway Sealer Relationship Specialty Start Date End Date Marie Devi MD PCP - General Family Medicine 07/16/13 Driveway Sealer Relationship Specialty Start Date End Date Marie Devi MD PCP - General Family Medicine 07/16/13 Driveway Sealer Relationship Specialty Start Date End Date Marie Devi MD PCP - General Family Medicine 07/16/13 Driveway Sealer Relationship Specialty Start Date End Date Marie Devi MD PCP - General Family Medicine 07/16/13 Driveway Sealer Relationship Specialty Start Date End Date Marie Devi MD PCP - General Family Medicine 07/16/13 Driveway Sealer Relationship Specialty Start Date End Date Marie Devi MD [address] [facility] [place] [address] PCP - General 08/19/12 Marie Devi MD [address] [facility] [place] [address] PCP - Human Medicare Advantage PCP 06/23/21 Driveway Sealer Relationship Specialty Start Date End Date Marie Devi MD PCP - General Family Medicine 07/16/13 Driveway Sealer Relationship Specialty Start Date End Date Marie Devi MD PCP - General Family Medicine 07/16/13 Driveway Sealer Relationship Specialty Start Date End Date Marie Devi MD [address] [facility] [place], [place] [address] PCP - General Family Medicine 03/06/23 Vicki Diego MD [address] [place] [address] Radiation Oncologist Radiation Oncology 03/06/23 Driveway Sealer Relationship Specialty Start Date End Date Marie Devi MD [address] [facility] [place] [address] PCP - General Family Medicine 03/06/23 Vicki Diego MD [address] [place] [address] Radiation Oncologist Radiation Oncology 03/06/23 Stevie Escobedo DO [address] [place], [place] [id number] Consulting Physician Hematology and Oncology 03/18/23 Driveway Sealer Relationship Specialty Start Date End Date Marie Devi MD [address] [facility] [place], [place] [id number] PCP - General Family Medicine 03/06/23 Vicki Diego MD [address] [place] [address] Radiation Oncologist Radiation Oncology 03/06/23 Stevie Escobedo DO [address] [place] [address] Consulting Physician Hematology and Oncology 03/18/23 Driveway Sealer Relationship Specialty Start Date End Date Marie Devi MD [address] [facility], [facility] [address] [place] [address] PCP - General Family Medicine 03/06/23 Vicki Diego MD [address] [place] [address] Radiation Oncologist Radiation Oncology 03/06/23 Stevie Escobedo DO [address] [place] [place] [address] Consulting Physician Hematology and Oncology 03/18/23 Driveway Sealer Relationship Specialty Start Date End Date Marie Devi MD [address] [facility], [facility] [address] [place] [address] PCP - General Family Medicine 03/06/23 Vicki Diego MD [address] [place] [address] Radiation Oncologist Radiation Oncology 03/06/23 Stevie Escobedo DO [address] [place] [address] Consulting Physician Hematology and Oncology 03/18/23 Driveway Sealer Relationship Specialty Start Date End Date Marie Devi MD [address] [facility] [place] [address] PCP - General Family Medicine 03/06/23 Vicki Diego MD [address] [place] [address] Radiation Oncologist Radiation Oncology 03/06/23 Stevie Escobedo DO [address] [place] [address] Consulting Physician Hematology and Oncology 03/18/23 Driveway Sealer Relationship Specialty Start Date End Date Marie Devi MD [address] [facility] [place] [address] PCP - General Family Medicine 03/06/23 Vicki Diego MD [address] [place] [address] Radiation Oncologist Radiation Oncology 03/06/23 Stevie Escobedo DO [address] [place] [address] Consulting Physician Hematology and Oncology 03/18/23 Driveway Sealer Relationship Specialty Start Date End Date Marie Devi MD [address] [facility] [place] [address] PCP - General Family Medicine 03/06/23 Vicki Diego MD [address] [place] [address] Radiation Oncologist Radiation Oncology 03/06/23 Stevie Escobedo DO [address] [place] [address] Consulting Physician Hematology and Oncology 03/18/23 Driveway Sealer Relationship Specialty Start Date End Date Marie Devi MD [address] [facility] [place] [address] PCP - General Family Medicine 03/06/23 Vicki Diego MD [address] [place] [address] Radiation Oncologist Radiation Oncology 03/06/23 Stevie Escobedo DO [address] [place] [address] Consulting Physician Hematology and Oncology 03/18/23 Driveway Sealer Relationship Specialty Start Date End Date Marie Devi MD [address] [facility] [place] [address] PCP - General Family Medicine 03/06/23 Vicki Diego MD [address] [place] [address] Radiation Oncologist Radiation Oncology 03/06/23 Stevie Escobedo DO [address] [place] [place] [address] Consulting Physician Hematology and Oncology 03/18/23 Driveway Sealer Relationship Specialty Start Date End Date Marie Devi MD [address] [facility], [address] [place] [address] PCP - General Family Medicine 03/06/23 Vicki Diego MD [address] [place] [address] Radiation Oncologist Radiation Oncology 03/06/23 Stevie Escobedo DO [address] [place] [place] [address] Consulting Physician Hematology and Oncology 03/18/23 Driveway Sealer Relationship Specialty Start Date End Date Marie Devi MD [address] [facility], [address] [place] [address] PCP - General Family Medicine 03/06/23 Vicki Diego MD [address] [place] [address] Radiation Oncologist Radiation Oncology 03/06/23 Stevie Escobedo DO [address] [place] [place] [address] Consulting Physician Hematology and Oncology 03/18/23 Driveway Sealer Relationship Specialty Start Date End Date Marie Devi MD [address] [facility], [address] [place] [address] PCP - General Family Medicine 03/06/23 Vicki Diego MD [address] [place] [place] [address] Radiation Oncologist Radiation Oncology 03/06/23 Stevie Escobedo DO [address] [place] [address] Consulting Physician Hematology and Oncology 03/18/23 Driveway Sealer Relationship Specialty Start Date End Date Marie Devi MD [address] [facility] [place] [address] PCP - General Family Medicine 03/06/23 Vicki Diego MD [address] [place] [address] Radiation Oncologist Radiation Oncology 03/06/23 Stevie Escobedo DO [address] [place] [address] Consulting Physician Hematology and Oncology 03/18/23 Driveway Sealer Relationship Specialty Start Date End Date Marie Deiv MD [address] [facility] [place] [address] PCP - General Family Medicine 03/06/23 Vicki Diego MD [address] [place] [address] Radiation Oncologist Radiation Oncology 03/06/23 Stevie Escobedo DO [address] [place] [address] Consulting Physician Hematology and Oncology 03/18/23 Driveway Sealer Relationship Specialty Start Date End Date Marie Devi MD [address] [facility], [address] [place] [address] PCP - General Family Medicine 03/06/23 Vicki iDego MD [address] [place] [address] Radiation Oncologist Radiation Oncology 03/06/23 Stevie Escobedo DO [address] [place] [address] Consulting Physician Hematology and Oncology 03/18/23 Driveway Sealer Relationship Specialty Start Date End Date Marie Devi MD [address] [facility], [address] [place] [address] PCP - General Family Medicine 03/06/23 Vicki Diego MD [address] [place] [place] [address] Radiation Oncologist Radiation Oncology 03/06/23 Stevie Escobedo DO [address] [place] [place] [address] Consulting Physician Hematology and Oncology 03/18/23 Driveway Sealer Relationship Specialty Start Date End Date Marie Devi MD [address] [facility] [place] [address] PCP - General Family Medicine 03/06/23 Vicki Diego MD [address] [place] [place] [address] Radiation Oncologist Radiation Oncology 03/06/23 Stevie Escobedo DO [address] [place] [place] [address] Consulting Physician Hematology and Oncology 03/18/23 Driveway Sealer Relationship Specialty Start Date End Date Marie Devi MD [address] [facility] [place] [address] PCP - General Family Medicine 03/06/23 Vicki Diego MD [address] [place] [place] [address] Radiation Oncologist Radiation Oncology 03/06/23 Stevie Escobedo DO [address] [place] [place] [address] Consulting Physician Hematology and Oncology 03/18/23 Driveway Sealer Relationship Specialty Start Date End Date Marie Devi MD [address] [facility] [place] [address] PCP - General Family Medicine 03/06/23 Vicki Diego MD [address] [place] [place] [address] Radiation Oncologist Radiation Oncology 03/06/23 Stevie Escobedo DO [address] [place] [place] [address] Consulting Physician Hematology and Oncology 03/18/23 Driveway Sealer Relationship Specialty Start Date End Date Marie Devi MD [address] [facility] [place] [address] PCP - General Family Medicine 03/06/23 Vicki Diego MD [address] [place] [place], [place] [id number] Radiation Oncologist Radiation Oncology 03/06/23 Stevie Escobedo DO [address] [place] [place] [address] Consulting Physician Hematology and Oncology 03/18/23 Driveway Sealer Relationship Specialty Start Date End Date Marie Devi MD [address] [facility] [place] [address] PCP - General Family Medicine 03/06/23 Vicki Diego MD [address] [place] [place] [address] Radiation Oncologist Radiation Oncology 03/06/23 Stevie Escobedo DO [address] [place] [place] [address] Consulting Physician Hematology and Oncology 03/18/23 Driveway Sealer Relationship Specialty Start Date End Date Marie Devi MD [address] [facility] [place] [address] PCP - General Family Medicine 03/06/23 Vicki Diego MD [address] [place] [place] [address] Radiation Oncologist Radiation Oncology 03/06/23 Stevie Escobedo DO [address] [place] [place] [address] Consulting Physician Hematology and Oncology 03/18/23 Driveway Sealer Relationship Specialty Start Date End Date Marie Devi MD [address] [facility], [address] [place] [address] PCP - General Family Medicine 03/06/23 Vicki Diego MD [address] [place] [place] [address] Radiation Oncologist Radiation Oncology 03/06/23 Stevie Escobedo DO [address] [place] [place] [address] Consulting Physician Hematology and Oncology 03/18/23 Driveway Sealer Relationship Specialty Start Date End Date Mraie Devi MD [address] [facility], [address] [place] [address] PCP - General Family Medicine 03/06/23 Vicki Diego MD [address] [place] [place] [address] Radiation Oncologist Radiation Oncology 03/06/23 Stevie Escobedo DO [address] [place] [address] Consulting Physician Hematology and Oncology 03/18/23 Driveway Sealer Relationship Specialty Start Date End Date Marie Devi MD [address] [facility] [place] [address] PCP - General 08/19/12 Marie Devi MD [address] [facility] [place] [address] PCP - [employer] Medicare Advantage PCP 06/23/21 Mirta Brody, conductor/[email or web address] 06/09/23 Driveway Sealer Relationship Specialty Start Date End Date Marie Devi MD [address] [facility] [place] [address] PCP - General Family Medicine 03/06/23 Vicki Diego MD [address] [place] [place] [address] Radiation Oncologist Radiation Oncology 03/06/23 Stevie Escobedo DO [address] [place] [place] [address] Consulting Physician Hematology and Oncology 03/18/23 Driveway Sealer Relationship Specialty Start Date End Date Marie Devi MD [address] [facility] [place] [address] PCP - General Family Medicine 03/06/23 Vicki Diego MD [address] [place] [place] [address] Radiation Oncologist Radiation Oncology 03/06/23 Stevie Escobedo DO [address] [place] [place] [address] Consulting Physician Hematology and Oncology 03/18/23 Driveway Sealer Relationship Specialty Start Date End Date Marie Devi MD [address] [facility], [address] [place] [address] PCP - General Family Medicine 03/06/23 Vicki Diego MD [address] [place] [place], [place] [address] Radiation Oncologist Radiation Oncology 03/06/23 Stevie Escobedo DO [address] [place] [place] [address] Consulting Physician Hematology and Oncology 03/18/23 Driveway Sealer Relationship Specialty Start Date End Date Marie Devi MD [address] [facility], [address] [place] [address] PCP - General Family Medicine 03/06/23 Vicki Diego MD [address] [place] [place] [address] Radiation Oncologist Radiation Oncology 03/06/23 Stevie Escobedo DO [address] [place] [place] [address] Consulting Physician Hematology and Oncology 03/18/23 Driveway Sealer Relationship Specialty Start Date End Date Marie Devi MD [address] [facility], [address] [place], [place] [address] PCP - General Family Medicine 03/06/23 Vicki Diego MD [address] [place] [place] [address] Radiation Oncologist Radiation Oncology 03/06/23 Stevie Escobedo DO [address] [place] [place] [address] Consulting Physician Hematology and Oncology 03/18/23 Driveway Sealer Relationship Specialty Start Date End Date Marie Devi MD [address] [facility] [place] [address] PCP - General Family Medicine 03/06/23 Vicki Diego MD [address] [place] [place] [address] Radiation Oncologist Radiation Oncology 03/06/23 Stevie Escobedo DO [address] [place] [place] [address] Consulting Physician Hematology and Oncology 03/18/23 Driveway Sealer Relationship Specialty Start Date End Date Marie Devi MD [address] [facility] [place] [address] PCP - General Family Medicine 03/06/23 Vicki Diego MD [address] [place] [place] [address] Radiation Oncologist Radiation Oncology 03/06/23 Stevie Escobedo DO [address] [place] [place] [address] Consulting Physician Hematology and Oncology 03/18/23 Driveway Sealer Relationship Specialty Start Date End Date Marie Devi MD [address] [facility] [place] [address] PCP - General Family Medicine 03/06/23 Vicki Diego MD [address] [place] [place] [address] Radiation Oncologist Radiation Oncology 03/06/23 Stevie Escobedo DO [address] [facility] [address] [place] [address] Consulting Physician Hematology and Oncology 03/18/23 Driveway Sealer Relationship Specialty Start Date End Date Marie Devi MD [address] [facility], [address] [place] [address] PCP - General 08/19/12 Marie Devi MD [address] [facility] [place] [address] PCP - [employer] Medicare Advantage PCP 06/23/21 Mirta Brody, conductor/[email or web address] 06/09/23 Driveway Sealer Relationship Specialty Start Date End Date Marie Devi MD [address] [facility] [place] [address] PCP - General 08/19/12 Marie Devi MD [address] [facility] [place] [address] PCP - [employer] Medicare Advantage PCP 06/23/21 Mirta Brody, conductor/[email or web address] 06/09/23 Driveway Sealer Relationship Specialty Start Date End Date Marie Devi MD [address] [facility], [address] [place] [address] PCP - General 08/19/12 Marie Devi MD [address] [facility], [address] [place] [address] PCP - Hum[employer] Medicare Advantage PCP 06/23/21 Mirta Brody, conductor/[email or web address] 06/09/23 Driveway Sealer Relationship Specialty Start Date End Date Marie Devi MD [address] [facility], [address] [place], [place] [address] PCP - General Family Medicine 03/06/23 Vicki Digeo MD [address] [place] [place], [place] [address] Radiation Oncologist Radiation Oncology 03/06/23 Stevie Escobedo DO [address] [place] [place] [address] Consulting Physician Hematology and Oncology 03/18/23 Driveway Sealer Relationship Specialty Start Date End Date Marie Devi MD [address] [facility], [address] [place], [place] [address] PCP - General Family Medicine 03/06/23 Vicki Diego MD [address] [place] [place] [address] Radiation Oncologist Radiation Oncology 03/06/23 Stevie Escobedo DO [address] [place] [place] [address] Consulting Physician Hematology and Oncology 03/18/23 Driveway Sealer Relationship Specialty Start Date End Date Marie Devi MD [address] [facility], [address] [place], [place] [address] PCP - General Family Medicine 03/06/23 Vicki Diego MD [address] [facility] [place] [address] Radiation Oncologist Radiation Oncology 03/06/23 Stevie Escobedo DO [address] [place] [address] Consulting Physician Hematology and Oncology 03/18/23 Driveway Sealer Relationship Specialty Start Date End Date Marie Devi MD [address] [facility], [address] [place] [address] PCP - General Family Medicine 03/06/23 Vicki Diego MD [address] [facility], [address] [place] [address] Radiation Oncologist Radiation Oncology 03/06/23 Stevie Escobedo DO [address] [place] [place] [address] Consulting Physician Hematology and Oncology 03/18/23 Driveway Sealer Relationship Specialty Start Date End Date Marie Devi MD [address] [facility], [address] [place] [address] PCP - General Family Medicine 03/06/23 Vicki Diego MD [address] [facility] [place] [address] Radiation Oncologist Radiation Oncology 03/06/23 Stevie Escobedo DO [address] [place] [address] [place] [address] Consulting Physician Hematology and Oncology 03/18/23 Driveway Sealer Relationship Specialty Start Date End Date Marie Devi MD [address] [facility] [place] [address] PCP - General Family Medicine 03/06/23 Vicki Diego MD [address] [facility] [place] [address] Radiation Oncologist Radiation Oncology 03/06/23 Stevie Escobedo DO [address] [place] [place] [address] Consulting Physician Hematology and Oncology 03/18/23 Driveway Sealer Relationship Specialty Start Date End Date Marie Devi MD [address] [facility] [place] [address] PCP - General Family Medicine 03/06/23 Vicki Diego MD [address] [facility] [place] [address] Radiation Oncologist Radiation Oncology 03/06/23 Stevie Escobedo DO [address] [place] [address] [place] [address] Consulting Physician Hematology and Oncology 03/18/23 Driveway Sealer Relationship Specialty Start Date End Date Marie Devi MD PCP - General Family Medicine 07/16/13 Luana Montgomery MD [address] [place] [address] Referring Internal Medicine 06/08/23 Marie Devi MD [address] [facility] [address] [place] [address] Home Care Provider Family Medicine 06/09/23 Driveway Sealer Relationship Specialty Start Date End Date Marie Devi MD [address] [facility] [place] [address] PCP - General Family Medicine 03/06/23 Vicki Diego MD [address] [facility] [place] [address] Radiation Oncologist Radiation Oncology 03/06/23 Stevie Escobedo DO [address] [place] [place] [address] Consulting Physician Hematology and Oncology 03/18/23 Driveway Sealer Relationship Specialty Start Date End Date Marie Devi MD [address] [facility] [place] [address] PCP - General Family Medicine 03/06/23 Vicki Diego MD [address] [facility], [address] [place] [address] Radiation Oncologist Radiation Oncology 03/06/23 Stevie Escobedo DO [address] [place] [place] [address] Consulting Physician Hematology and Oncology 03/18/23 Driveway Sealer Relationship Specialty Start Date End Date Marie Devi MD [address] [facility] [place] [address] PCP - General 08/19/12 Marie Devi MD [address] [facility] [place] [address] PCP - [employer] Medicare Advantage PCP 06/23/21 Ivanna Godinez MA Senior Android DeveloperNocturnist 10/29/23 Driveway Sealer Relationship Specialty Start Date End Date Marie Devi MD [address] [facility], [address] [place] [address] PCP - General Family Medicine 03/06/23 Vicki Diego MD [address] [facility] [place] [address] Radiation Oncologist Radiation Oncology 03/06/23 Stevie Escobedo DO [address] [place] [address] [place] [address] Consulting Physician Hematology and Oncology 03/18/23 [address] Sealer Relationship Specialty Start Date End Date Marie Devi MD [address] [facility], [address] [place] [address] PCP - General Family Medicine 03/06/23 Vicki Diego MD [address] [facility] [place] [address] Radiation Oncologist Radiation Oncology 03/06/23 Stevie Escobedo DO [address] [place] [place] [address] Consulting Physician Hematology and Oncology 03/18/23 [address] Sealer Relationship Specialty Start Date End Date Marie Devi MD PCP - General Family Medicine 07/16/13 Luana Montgomery MD [address] [place] [address] Referring Internal Medicine 06/08/23 Marie Devi MD [address] [facility] [address] [place] [address] Home Care Provider Family Medicine 06/09/23 Drive[address] Sealer Relationship Specialty Start Date End Date Marie Devi MD PCP - General Family Medicine 07/16/13 Luana Montgomery MD [address] [place] [address] Referring Internal Medicine 06/08/23 Marie Devi MD [address] [facility] [address] [place] [address] Home Care Provider Family Medicine 06/09/23 Driveway Sealer Relationship Specialty Start Date End Date Marie Devi MD [address] [facility], [address] [place] [address] PCP - General Family Medicine 03/06/23 Vicki Diego MD [address] [facility], [address] [place] [address] Radiation Oncologist Radiation Oncology 03/06/23 Stevie Escobedo DO [address] [place] [place] [address] Consulting Physician Hematology and Oncology 03/18/23 [address] Sealer Relationship Specialty Start Date End Date Marie Devi MD PCP - General Family Medicine 07/16/13 Luana Montgomery MD [address] [place] [address] Referring Internal Medicine 06/08/23 Marie Devi MD [address] [facility] [address] [place] [address] Home Care Provider Family Medicine 06/09/23 Driveway Sealer Relationship Specialty Start Date End Date Marie Devi MD PCP - General Family Medicine 07/16/13 Luana Montgomery MD [address] [place] [address] Referring Internal Medicine 06/08/23 Marie Devi MD [address] [facility] 1 [place] [address] Home Care Provider Family Medicine 06/09/23 Yony Loredo, RN [address] [place] [address] Site Specialist Post Acute Care 06/09/23 06/26/23 Drive[address] Sealer Relationship Specialty Start Date End Date Marie Devi MD PCP - General Family Medicine 07/16/13 Luana Montgomery MD [facility] [place] [address] Referring Internal Medicine 06/08/23 Marie Devi MD [address] [facility] [address] [place] [address] Home Care Provider Family Medicine 06/09/23 Yony Loredo, HANNAH [address] [place], [place] [id number] Site Specialist Post Acute Care 06/09/23 06/26/23 Drive[address] Sealer Relationship Specialty Start Date End Date Marie Devi MD [address] [facility], [facility] 1 [place] [address] PCP - General Family Medicine 03/06/23 Vicki Diego MD [address] [facility], [facility] 1 [place] [address] Radiation Oncologist Radiation Oncology 03/06/23 Stevie Escobedo DO [address] [facility] [address] [place] [address] Consulting Physician Hematology and Oncology 03/18/23 [address] Sealer Relationship Specialty Start Date End Date Marie Devi MD [address] [facility], [address] [place] [address] PCP - General 08/19/12 Marie Devi MD [address] [facility], [address] [place] [address] PCP - [employer] PCP 06/23/21 Driveway Sealer Relationship Specialty Start Date End Date Marie Devi MD [address] [facility], [address] [place] [address] PCP - General Family Medicine 03/06/23 Vicki Diego MD [address] [facility], [address] [place] [address] Radiation Oncologist Radiation Oncology 03/06/23 Stevie Escobedo DO [address] [place], [place] [id number] Consulting Physician Hematology and Oncology 03/18/23 [address] Sealer Relationship Specialty Start Date End Date Leonardo Santos DO [address] [facility] [address] [place] [address] PCP - General Family Medicine 08/10/24 Vicki Diego MD Radiation Oncologist Radiation Oncology 03/06/23 Stevie Escobedo DO [address] [place] [place] [address] Consulting Physician Hematology and Oncology 03/18/23 [address] Sealer Relationship Specialty Start Date End Date Marie Devi MD [address] [facility] [address] [place] [address] PCP - [employer] PCP 06/23/21 Leonardo Santos DO [address] [facility], [address] [place] [address] PCP - General Family Medicine 08/12/24 Drive[address] Sealer Relationship Specialty Start Date End Date Marie Devi MD PCP - General Family Medicine 07/16/13 Luana Montgomery MD [address] [place] [address] Referring Internal Medicine 06/08/23 Marie Devi MD [address] [place] [address] Home Care Provider Family Medicine 06/09/23 [address] Sealer Relationship Specialty Start Date End Date Marie Devi MD PCP - General Family Medicine 07/16/13 Luana Montgomery MD [address] [place] [address] Referring Internal Medicine 06/08/23 Marie Devi MD [address] [place] [address] Home Care Provider Family Medicine 06/09/23 INFORMATION SOURCE (unrecogn ized section and content) DATE CREATED AUTHOR 01/12/2022 [facility] DATE CREATED AUTHOR AUTHOR'S ORGANIZ ATION 02/07/2023 [facility] DATE CREATED AUTHOR AUTHOR'S ORGANIZ ATION 12/19/2023 [facility] DATE CREATED AUTHOR AUTHOR'S ORGANIZ ATION 08/11/2024 [facility] DATE CREATED AUTHOR AUTHOR'S ORGANIZ ATION 09/19/2024 [facility] DATE CREATED AUTHOR AUTHOR'S ORGANIZ ATION 12/19/2024 [place] DATE CREATED AUTHOR AUTHOR'S ORGANIZ ATION 12/22/2024 [facility] DATE CREATED AUTHOR AUTHOR'S ORGANIZ ATION 01/09/2025 [facility] DATE CREATED AUTHOR AUTHOR'S ORGANROLAND ATION 01/10/2025 [facility] DATE CREATED AUTHOR AUTHOR'S ORGANROLAND ATION 01/11/2025 [facility] FOR RECORDS PERTAINING TO PATIENTS WHO ARE [...] BE BASED ON THE PRIMARY CLINICAL RECORDS. [employer] provides no warranty or guarantee of the accuracy or completeness of information in this document.
[2025-01-11 08:05] LABS: Hematocrit 39.4 % (37-47); Hemoglobin 12.7 g/dL (12.0-15.0); Mean Corp Hgb Conc 32.2 g/dL (32-36); Mean Corpuscular Volume 94.9 fL (81-99); Mean Platelet Vol. 10.1 fl (6.2-12.0); Platelet Count 227 K/mm3 (150-450); RBC Distribution Width CV 14.4 % (11.6-14.6); RBC Distribution Width SD 50.0 fl (35.1-43.9); Red Blood Count 4.15 M/mm3 (4.2-5.4); White Blood Count 6.0 K/mm3 (4.4-11.0)
[2025-01-11 09:00] LABS: AST(SGOT) 22 U/L (<=31); Alanine Aminotransfer ALT/SGPT 10 U/L (<=34); Albumin, Serum 3.6 g/dL (3.4-4.8); Alkaline Phosphatase 97 U/L (35-104); Anion Gap 9 (5-15); BUN 16 mg/dL (4-19); BUN/Creat Ratio 23.1 RATIO (10-20); Calcium,Total 9.1 mg/dL (7.6-11.0); Carbon Dioxide 29.4 mmol/L (21.0-32.0); Chloride 106 mmol/L (98-108); Globulin 2.3 g/dL (2.2-4.2); Glucose 100 mg/dL (70-99); Potassium 4.1 mmol/L (3.3-5.1)
== END ==
LOC: OLS.ACH 05:00
DX: R62.7 Adult failure to thrive (principal); D64.9 Anemia, unspecified
CPT/HCPCS: 36415; 80053; 85027

== ENCOUNTER → 2025-01-24 05:00 | Outpatient (REF) | payer MEDICARE, SELFPAY ==
--- OUTSIDE RECORDS SUMMARY | 2025-01-24 04:38 | XMS RPT_ITS | CCD ---
Author Organization [facility] Care Team Providers Care Production Editor Name Role Phone Marie Devi Unavailable Unavailable [...] Diego MD Unavailable Fuentes DOesa E Unavailable [phone] Mary Grace YOUNG, Mirta Unavailable Unavailable Vicki [...] Attending Unavailable DULDINA, MARIE Primary Care Unavailable DULDINA, MARIE Primary Care Unavailable DONCALS VICKI Attending Unavailable FANNY, STEVIE Referring Unavailable DONCALSVICKI Attending Unavailable MARIE DVEI Primary Care Unavailable FANNY, STEVIE Attending Unavailable DULDINA, MARIE Primary Care Unavailable FANNY, STEVIE Referring Unavailable FANNY, STEVIE Attending Unavailable SHANDRA, MARIE Primary Care Unavailable FANNY, STEVIE Referring Unavailable Vicki Diego MD Unavailable Stanec DO, Leonardo Primary Care Provider Marie Devi MD Unavailable Aurelia DO, Leonardo R Primary Care Provider [phone] MARIE DEVI Primary Care Unavailable GRACY, LUCIUS Referring Unavailable TIO, AGNIESZKAON Attending Unavailable ANAHI POLANCO Admitting Unavailable MARIE DEVI Primary Care Unavailable KELTON TAYLOR Consulting Unavailable MARIE DEVI Attending Unavailable MARIE DEVI Primary Care Unavailable STANSOHAIL, LEONARDO R Attending Unavailable AURELIA, LEONARDO R Primary Care Unavailable Marie Devi MD Primary Care Provider Marie Devi MD Unavailable MARIE DEVI Primary Care Unavailable TORRIE CHOI Attending Unavailable Shant Christensen Attending Unavailable [facility] Attending Azam Jesus Attending Unavailable RACHEAL DE LA ROSA Referring Unavailable MARIE DEVI Primary Care Unavailable SARA RAMEY Attending Unavailable MARIE DEVI Primary Care Unavailable SARA RAMEY Referring Unavailable Allergies Allergy Classification Reported Allergen(s) Allergy Type Date of Onset Reaction(s) Facility Alendronate (3 sources) Alendronate; Translations: [Fosamax] Drug Allergy [facility] Work Phone: Cephalosporins (antibiotic) (3 sources) Cephalexin; Translations: [Keflex TABS] Drug Allergy [facility] Work Phone: Penicillins (antibiotic) (3 sources) Penicillins; Translations: [Penicillins] Drug Allergy [facility] Work Phone: pregabalin (3 sources) pregabalin; Translations: [Lyrica CAPS] Drug Allergy [facility] Work Phone: Serotonin Reuptake Inhibitors (SSRIs) (3 sources) Escitalopram Drug Allergy [facility] Work Phone: (11 sources) Alendronate; Translations: [Fosamax] Drug Allergy [facility] Work Phone: (20 sources) Aspirin; Translations: [Adult Aspirin Low Strength TBDP] Drug Allergy 10-31-19 23 Other [facility] Work Phone: [phone] (20 sources) Cephalexin; Translations: [Keflex TABS] Drug Allergy 05-07-20 10 Unknown [facility] Work Phone: (11 sources) Escitalopram Drug Allergy [facility] Work Phone: (16 sources) Penicillins; Translations: [Penicillins] Allergy to drug (finding) 05-12-20 10 [facility] (20 sources) pregabalin; Translations: [Lyrica CAPS] Drug Allergy 05-07-20 10 [facility] Work Phone: (20 sources) Alendronate; Translations: [ALENDRONIC ACID] Drug Allergy 05-07-20 10 Unknown, Other [facility] Work Phone: (20 sources) nickel; Translations: [NICKEL] Drug Allergy 05-07-20 10 Unknown [facility] Work Phone: (2 sources) Penicillins Drug Allergy 05-12-20 10 Unknown [facility] Work Phone: (20 sources) Salicylic Acid; Translations: [SALICYLATES] Drug Allergy 05-07-20 10 Unknown, Other [facility] Work Phone: (17 sources) CONTRAST DYE MRI [Other] Propensity to adverse reactions 06-14-20 10 [facility] (14 sources) Escitalopram; Translations: [ESCITALOPRAM OXALATE] Drug Allergy 10-25-19 23 [facility] Work Phone: (20 sources) Penicillins Drug Allergy 05-12-20 10 [facility] Work Phone: (12 sources) Salicylic Acid Drug Allergy 05-07-20 10 [facility] Work Phone: (20 sources) Iodinated Contrast Media; Translations: [IODINATED CONTRAST MEDIA] Drug Intolerance 06-14-20 10 [facility] Work Phone: (20 sources) Salicylate product Propensity to adverse reactions to drug 05-07-20 10 [facility] Work Phone: (20 sources) Alendronate Drug Allergy 05-07-20 10 Unknown, Other [employer] (20 sources) Escitalopram Drug Allergy 10-25-19 23 Other, Unknown [employer] (20 sources) Gadolinium Drug Allergy 03-06-20 [employer] (20 sources) Iodine; Translations: [IODINE] Drug Allergy 03-06-20 23 [facility] [employer] (20 sources) nickel sulfate Drug Allergy 05-07-20 10 Unknown [employer] (20 sources) Penicillins Drug Allergy 05-12-20 10 Unknown [facility] [employer] (20 sources) Pregabalin; Translations: [PREGABALIN] Allergy to substance 05-07-20 10 [facility] (7 sources) Prednisone & Diphenhydramine Drug Allergy 03-06-20 23 [facility] (10 sources) Acetaminophen / HYDROcodone; Translations: [HYDROCODONE-ACETA MINOPHEN] Drug Allergy 08-14-19 12 Nausea/vomitin g [facility] (2 sources) Aspirin; Translations: [ASPIRIN] Drug Allergy 10-31-19 [facility] (5 sources) Cephalexin; Translations: [CEPHALEXIN] Drug Allergy 05-07-20 10 [facility] (6 sources) Penicillins Drug Allergy 05-12-20 10 Unknown [facility] Work Phone: Medications Current Medications Medication [...] Start: 08-18-2018 take 1 capsule by [facility] DULox[facility] HCl - 20 MG Oral Capsule Delayed Release Particles TAKE 1 CAPSULE DAILY. Quantity: 90 Refills: 3 Ordered: 13-Dec-2021 Shandra NUÑEZ, Marie Stanley Start : 18-Aug-2018 Active End: 08-10-2024 take 1 capsule by mouth every eight hours DULoxetine (Cymbalta) [address] capsule Take 1 capsule by mouth every 8 hours. 08/10/2024 Discontinued (Duplicate order) Comment on above: Take 1 capsule (20 m g) by mouth once daily. famotidine 20 mg oral tablet (5 sources) Histamine-2 Receptor Antagonist take 1 tablet by mouth once daily famotidine (PEPCID) 20 mg tablet Take 20 mg by mouth once daily. Active gabapentin 100 mg oral capsule (5 sources) Anti-epileptic Agent Start: 12-11-19 End: 01-10-20 take 1 capsule by mouth every twelve hours gabapentin (NEURONTIN) 100 mg capsule Take 1 capsule by mouth every 12 hours for 30 days. 12/10/2024 Active levETIRAcetam 500 mg oral tablet (5 sources) Start: 12-11-19 take 1 tablet by [...] afternoon. losartan potassium 50 mg oral tablet (5 sources) Angiotensin 2 Receptor Kesha take 1 tablet by mouth once daily losartan (COZAAR) 50 mg tablet Take 50 mg by mouth once daily. Active memantine hydrochloride 10 mg oral tablet (20 sources) P-hwlgey-W-aspartate Receptor Antagonist Start: 3 take 1 tablet [...] mouth in the morning. Active Multivitamin capsule (18 sources) take 1 capsule by mouth once [...] mouth daily. 10/28/2023 Active polyethylene glycol 3350 67628 mg powder for oral solution (8 sources) Osmotic Laxative Start: 10-28-2023 End: 11-11-2023 polyethylene glycol 3350 17 gram packet Take 17 g by mouth. 10/28/2023 Active predniSONE 20 mg oral tablet (6 sources) Start: 12-11-2024 take 3 tablets by [...] of fiber by mouth daily. Active sennosides, penitentiary 8.6 mg oral tablet (8 sources) Start: 10-27-19 End: 11-11-19 senna (SENOKOT) [...] Sig (Original) acetaminophen 325 mg oral tablet (10 sources) Start: 06-24-2023 End: 06-24-2023 650 mg, Oral, Once, On Fri06/24/23 at 0930, For 1 dose, Administer 30 to 60 minutes prior to treatment. Maximum dose of acetaminophen is 4000 mg from all sources in 24 hours. Start: 06-24-2023 End: 06-24-2023 acetaminophen (Tylenol) tabl et 650 mg Start: 04-01-2023 End: 04-01-2023 acetaminophen (Tylenol) tabl et 650 mg take 2 tablets by [facility] every six hours as needed acetaminophen (TYLENOL) [...] completed) Start: 07-17-2022 take 1 capsule by [facility] once daily Doxycycline Hyclate 50 MG Oral [...] topical gel (18 sources) Nitroimidazole Antimicrobial Start: 018 End: metroNIDAZOLE 0.75 % External Gel APPLY [...] Translations: [Dehydration] 06-30-2023 Episodic Headache; including migraine (6 sources) Cervicogenic headache; Translations: [Cervicogenic headache] Onset: [...] circulatory system] 01-07-2025 Episodic Other circulatory disease (7 sources) History of cerebrovascular accident; Translations: [Personal history of transient ischemic attack (TIA), and cerebral infarction without residual deficits] Onset: 5 12-04-2024 Episodic Other circulatory disease (1 source) Personal history of transient ischemic attack (TIA), and cerebral infarction without residual deficits; Translations: [History of stroke] Onset: 5 Episodic Other inflammatory condition of skin (20 [...] awareness] Onset: 5 Episodic Residual codes; unclassified (3 sources) Transient altered mental status; Translations: [Disorientation, unspecified] 01-07-2025 Episodic Systemic lupus erythematosus and connective tissue disorders (6 sources) Other giant cell arteritis; Translations: [Temporal [...] (Multi); Translations: [Parkinsonism, unspecified (Multi)] Onset: 3 Unclassified (1 source) Hospital Discharge Onset: 5 Past or Other Problems Problem Classification Problem Date Documented Da te Episodic/Chronic Allergic reactions (20 sources) Eczema; Translations: [Contact dermatitis and other eczema, unspecified cause] Onset: 10-29-2022 10-29-2022 Episodic Cancer of uterus (20 sources) H/O: malignant neoplasm; Translations: [Personal history of malignant neoplasm of other parts of uterus] Onset: 07-24-2005 02-05-2023 Episodic Diseases of white blood cells (16 sources) Febrile neutropenia; Translations: [Neutropenia, unspecified] Onset: 06-05-2023 Resolved: 12-10-2024 06-08-2023 Chronic Fever of unknown origin (11 sources) Fever; Translations: [Fever, unspecified] Onset: 06-05-2023 [...] 02-05-2023 Episodic Other aftercare (2 sources) Other intermediate accountant (current) drug therapy; Translations: [Other intermediate accountant (current) drug therapy] Onset: 09-18-2023 Episodic Other aftercare (2 sources) prison (current) use of aromatase inhibitors; Translations: [terminal superintendent (current) use of aromatase inhibitors] Onset: 09-05-2023 [...] Onset: 02-05-2023 Episodic Other nervous system disorders (11 sources) Toxic encephalopathy; Translations: [Toxic encephalopathy] Onset: 10-09-2023 10-09-2023 Episodic Other nutritional; endocrine; and metabolic disorders (11 sources) Adult failure to thrive syndrome; Translations: [...] caused by tuberculosis or sexually transmitted disease) (19 sources) Infective pneumonia; Translations: [Pneumonia, unspecified organism] [...] (ER+)] Onset: 03-18-2023 Episodic Residual codes; unclassified (5 sources) Confusional state; Translations: [Disorientation, unspecified] Onset: 12-03-2024 Resolved: 12-10-2024 12-10-2024 Episodic Residual codes; unclassified (10 sources) Altered mental status; Translations: [Altered mental status, unspecified] Onset: 12-05-2024 Resolved: 12-10-2024 12-10-2024 Episodic Residual codes; unclassified (3 sources) Immunization due; Translations: [Immunization due] Respiratory failure; insufficiency; arrest (adult) (11 sources) Acute respiratory failure; Translations: [Acute respiratory [...] [Parkinsonism, unspecified (Multi)] Onset: 02-18-2024 Viral infection (12 sources) COVID-19; Translations: [Pneumonia due to other virus not elsewhere classified] Onset: 10-08-2023 10-09-2023 Episodic NEGATED: Highlighted row has not occurred!Residual codes; unclassified (13 sources) Disease Episodic Results Test Name Value Interpretation Reference Range Facility [facility] 01-18-2025 [facility] HNO ID: [id number] Author: YAJAIRA BAUTISTA RT(R) Service: Radiology Author Type: Technologist Type: Allied Health Filed: 01/18/2025 13:32 Note Text: Radiology Service Progress Note PATIENT NAME: Madhia Perales DATE OF SERVICE: January 18, 2025 TIME: 1:32 PM PATIENT IDENTITY VERIFICATION COMPLETED USING TWO (2) IDENTIFIERS: Name and Date of confirmed by patient verbally. FALL SCREENING: Has the patient had 2 falls in the last year or 1 fall with injury or currently using an Ambulatory Assistive Device (Walker, Cane, Wheelchair, Crutches, etc.)? Yes, Patient High Risk for Falls What interventions were put in place to prevent falls during this visit? Offered Assistance with Transfers/Clothing PATIENT GENDER DATA: Assigned female at . status: : No status: NO. PATIENT RELEVANT IMPLANT DATA REVIEWED: Not Applicable PATIENT PRESENTS WITH AN IMPLANTABLE OR ATTACHED BEDSPREAD CUTTER: No RADIOLOGY DEPARTMENT: Ultrasound PERIPHERAL IV DATA: Not applicable SIGNED BY: RT Akash(R) January 18, 2025 1:32 PM Normal [facility] US CAROTID BILon 01-18-2025 US CAROTID PEYMAN * * *Final Report* * * DATE OF EXAM: Jan 18 2025 1:36PM AWU [id number] - US CAROTID PEYMAN / PROCEDURE REASON: multiple diagnoses * * * * Physician Interpretation * * * * EXAM TITLE: BILATERAL COLOR-FLOW DUPLEX ULTRASOUND OF THE NECK DATE: 01/18/2025 COMPARISON: None. CLINICAL INDICATION/HISTORY: History of stroke TECHNIQUE: Color-flow duplex ultrasound interrogated as much as could be seen of the common carotid, internal carotid, external carotid and vertebral arteries on either side of the neck. FINDINGS: RIGHT NECK: Grayscale imaging reveals mild plaque burden in the bulb portion of the internal carotid artery. Peak systolic velocity in the internal carotid artery is 63 cm/sec. The systolic ratio is 0.9. Peak end diastolic velocity in the internal carotid artery is 20 cm/sec. Flow in the vertebral artery is antegrade. LEFT NECK: Grayscale imaging reveals mild plaque burden in the bulb portion of the internal carotid artery. Peak systolic velocity in the internal carotid artery is 61 cm/sec. The systolic ratio is 0.8. Peak end diastolic velocity in the internal carotid artery is 19 cm/sec. Flow in the vertebral artery is antegrade. IMPRESSION: Mild atherosclerotic disease of the carotid bifurcations with stenosis less than 30% on either side. Antegrade vertebral artery flow is maintained. Ship Purser: JARVIS Transcribe Date/Time: Jan 21 2025 12:26A Dictated by : RACHEL OLEARY MD This examination was interpreted and the report reviewed and electronically signed by: RACHEL OLEARY MD on Jan 21 2025 12:27AM EST [id number] N [facility] 01-12-2025 CNPN Telephone (CVAKPO) MADIHA PERALES ([id number]) 1945 F Date Time Provider Department 01/12/25 SARA RAMEY CVOCHOAPO During your visit today, we recorded the following information about you: Sara Ramey APRN.MACHINE TECH 01/12/2025 5:16 PM Signed Spoke with pt's daughter Wesley with patient's permission. She had called in recently because the patient was refusing her medications, closing her mouth and stating she wasn't going to take them. She hasn't heard anything from the facility since then. She is going to go see her mom soon and will see how things are going. She doesn't have a history of behavioral issues, so could be related to the keppra. If issues ongoing, will consider switching her over to vimpat. Wesley will keep us updated. Also discussed that reviewed imaging with Dr. Davenport, and does appear that there was a small stroke during recent admission, in addition to remote ischemic strokes. 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 Also recommend vessel imaging with carotid ultrasound. She has contrast dye allergy. Had MRA in the hospital. Then plan to follow up with me in [place] 02/14 to review results and see how things are going. Kya, can you help me communicate with [facility] in [place] regarding adding aspirin 81mg daily, and asking them to schedule her carotid ultrasound (they can use [phone])? The daughter wasn't sure whether she's supposed to schedule appts or if they do to arrange rides ,etc. I will amend her AVS from 01/03 so can use that as documentation. Thank you!! This is the address: [address], [place] [phone] Elfego MeyerLibby 01/13/2025 11:08 AM Signed Stevie called stating she spoke to Sara yesterday about changing her mom's keppra to vimpat, and she states the rehab facility, [facility], and pt is in room 209, the nurse is Erna, today, and Ligia if you call tomorrow. Kya Gautam RN 01/13/2025 11:51 AM Signed Situation: Called and spoke with Erna, patient's Nurse at [facility]. Background: Please see previous documentation within this encounter. Per ALLI Ramey: Kya, can you help me communicate with [facility] in [place] regarding adding aspirin 81mg daily, and asking them to schedule her carotid ultrasound". Assessment: Informed Nurse Erna Ramey is recommending starting aspirin 81 mg daily. Also informed to call [phone] to schedule carotid ultrasound. Erna verbalized understanding. Then, informed Erna that Daughter had conversation with ALLI Ramey yesterday regarding patient's behavior/personality changes. Erna then informed this RN patient has experienced increased drowsiness (taking at least four small naps per day, often sits with eyes closed), agitation, refusal of medication, ongoing over last week to [id number], seeming to correlate with the start date of the Keppra. Erna asks, "I'm wondering if that (Keppra) is what it is?" Erna reports patient's personality (prior to beginning Keppra) was "one of very much rule follower". Recommendation: Encounter routed to ALLI Ramey for review. Kya Gautam RN 01/13/2025 2:09 PM Signed Situation: After receipt of message from ALLI Ramey, called and spoke with Daughter to clarify her wishes. Background: Per ALLI Ramey: When I talked to Kalpana yesterday, she was going to see if things were any better or not. If there continues to be issue, we can go ahead and make the change now if they want. We need to get vimpat to therapeutic dose first, then can taper off keppra. Sleepiness could be a little worse while on both, but If significant change they can contact us. I had also recommend she get set up with Epilepsy, and I put in a referral when I saw them a few weeks back. Would recommend doing it this way: 1. Start lacosamide (vimpat) 100mg at night. Stay on keppra 500mg twice daily. 2. After 3 days, add another 100mg dose of vimpat in the morning. Stay on keppra 500mg twice daily. 3. After 3 days, stop morning dose of keppra. Continue keppra 500mg in the evening. Stay on vimpat 100mg twice daily. 4. After one week, stop keppra altogether. Stay on vimpat 100mg twice daily." Assessment: Daughter states, "After speaking to the Nurses and Nusrat yesterday, I think trying to switch her over to this Vimpat is a good idea." Later, Daughter added, "This behavior change is not her normal disposition." Daughter also reported asking Could it be that we're starting to see a further decline? But then, when I talked to Sara, she brought up the idea that it may be the Keppra. After talking with Nurses there, I say let's try it." Daughter asks, what is the dose of the aspirin? This RN responded, "81 mg daily". Daughter asks, "Wha (more content not included)... Normal [facility] CBC-Complete Blood Cnt No Lary steven 01-11-2025 Erythrocyte distribution width (RBC) [Ratio] 14.4 % Normal 11.6-14.6 [facility] Comment on above: Order Comment: . Performed By: #### L 100.0500, L500.4050 #### [facility] [address] [place], [address] Hematocrit (Bld) [Volume fraction] 39.4 % Normal 37-47 [facility] Comment on above: Order Comment: . Performed By: #### L 100.0500, [id number] #### [facility] [address] [place], [address] Hemoglobin (Bld) [Mass/Vol] 12.7 g/dL Normal 12.0-15.0 [facility] Comment on above: Order Comment: . Performed By: #### L 100.0500, [id number] #### [facility] [address] [place], [address] MCH (RBC) [Entitic mass] 30.6 pg Normal 27.0-32.0 [facility] Comment on above: Order Comment: . Performed By: #### L 100.0500, [id number] #### [facility] [address] [place], [address] MCHC (RBC) [Mass/Vol] 32.2 g/dL Normal 32-36 [facility] Comment on above: Order Comment: . Performed By: #### L 100.0500, [id number] #### [facility] [address] [place], [address] MCV (RBC) [Entitic vol] 94.9 fL Normal 81-[address] [facility] Comment on above: Order Comment: . Performed By: #### L 100.0500, [id number] #### [facility] [address] [place], [address] Platelet mean volume (Bld) [Entitic vol] 10.1 fL Normal 6.2-12.0 [facility] Comment on above: Order Comment: . Performed By: #### L 100.0500, [id number] #### [facility] [address] [place], [address] Platelets (Bld) [#/Vol] 227 10*3/uL Normal 150-450 [facility] Comment on above: Order Comment: . Performed By: #### L 100.0500, [id number] #### [facility] [address] [place], [address] RBC (Bld) [#/Vol] 4.15 10*6/uL Low 4.2-5.4 [facility] Comment on above: Order Comment: . Performed By: #### L 100.0500, [id number] #### [facility] [address] [place], [address] RDW SD 50.0 fl High 35.1-43.9 [facility] Comment on above: Order Comment: . Performed By: #### L 100.0500, [id number] #### [facility] [address] [place], [address] WBC (Bld) [#/Vol] 6.0 10*3/uL Normal 4.4-11.0 [facility] Comment on above: Order Comment: . Performed By: #### L 100.0500, [id number] #### [facility] [address] [place], [address] Comprehensive Metabolic Prof ilon 01-11-2025 Albumin [Mass/Vol] 3.6 g/dL Normal 3.4-4.8 [facility] Comment on above: Order Comment: 209.1 Performed By: #### L 100.0500, [id number] #### [facility] [address] [place], [address] Albumin/Globulin [Mass ratio] 1.6 {ratio} Normal 0.9-2.4 [facility] Comment on above: Order Comment: 209.1 Performed By: #### L 100.0500, [id number] #### [facility] [address] [place], [address] ALK PHOS 97 U/L Normal 35-104 [facility] Comment on above: Order Comment: 209.1 Performed By: #### L 100.0500, [id number] #### [facility] [address] [place], [address] ALT [Catalytic activity/Vol] 10 U/L Normal <=34 [facility] Comment on above: Order Comment: 209.1 Performed By: #### L 100.0500, [id number] #### [facility] [address] [place], [address] AST [Catalytic activity/Vol] 22 U/L Normal <=31 [facility] Comment on above: Order Comment: 209.1 Performed By: #### L 100.0500, [id number] #### [facility] [address] [place], [address] Bilirubin [Mass/Vol] 0.34 mg/dL Normal 0.00-1.30 [facility] Comment on above: Order Comment: 209.1 Performed By: #### L 100.0500, [id number] #### [facility] [address] [place], [address] BUN/CRE 23.1 RATIO High 10-20 [facility] Comment on above: Order Comment: 209.1 Performed By: #### L 100.0500, [id number] #### [facility] [facility] [address] [place], [address] Calcium [Mass/Vol] 9.1 mg/dL Normal 7.6-11.0 [facility] Comment on above: Order Comment: 209.1 Performed By: #### L 100.0500, L500.4050 #### [facility] [address] [place], [address] Chloride [Moles/Vol] 106 mmol/L Normal 98-108 [facility] Comment on above: Order Comment: 209.1 Performed By: #### L 100.0500, L500.4050 #### [facility] [address] [place], [address] CO2 [Moles/Vol] 29.4 mmol/L Normal 21.0-32.0 [facility] Comment on above: Order Comment: 209.1 Performed By: #### L 100.0500, L500.4050 #### [facility] [address] [place], [address] Creatinine [Mass/Vol] 0.70 mg/dL Normal 0.70-1.20 [facility] Comment on above: Order Comment: 209.1 Performed By: #### L 100.0500, L500.4050 #### [facility] [address] [place], [address] GAP 9 Normal 5-15 [facility] Comment on above: Order Comment: 209.1 Performed By: #### L 100.0500, L500.4050 #### [facility] [address] [place], [address] GFR/1.73 sq M.predicted among non-blacks MDRD (S/P/Bld) [Vol rate/Area] 88 mL/min/{1.73_m2} Normal >60 [facility] Comment on above: Order Comment: . Result Comment: mL/m in/1.73m2 CKD-EPI Creatinine Equation (2020) Performed By: #### L 100.0500, L500.4050 #### [facility] [address] [place], [address] Globulin (S) [Mass/Vol] 2.3 g/dL Normal 2.2-4.2 [facility] Comment on above: Order Comment: . Performed By: #### L 100.0500, L500.4050 #### [facility] [address] [place], [address] Glucose [Mass/Vol] 100 mg/dL High 70-99 [facility] Comment on above: Order Comment: . Performed By: #### L 100.0500, L500.4050 #### [facility] [address] [place], [address] Potassium [Moles/Vol] 4.1 mmol/L Normal 3.3-5.1 [facility] Comment on above: Order Comment: . Performed By: #### L 100.0500, L500.4050 #### [facility] [address] [place], [address] Sodium [Moles/Vol] 144 mmol/L Normal 133-145 [facility] Comment on above: Order Comment: . Performed By: #### L 100.0500, L500.4050 #### [facility] [address] [place], [address] T PROT 5.8 g/dL Low 5.9-8.4 [facility] Comment on above: Order Comment: . Performed By: #### L 100.0500, L500.4050 #### [facility] [address] [place], [place], [address] Urea nitrogen [Mass/Vol] 16 mg/dL Normal 4-19 [facility] Comment on above: Order Comment: 209.1 Performed By: #### L 100.0500, L500.4050 #### [facility] [address] [place], [place], [address] [facility] Telephone ([facility]) MADIHA PERALES ([id number]) 1945 F Date Time Provider Department 01/07/25 SARA RAMEY [facility] During your visit today, we recorded the [...] Perales, 1945). Yes Number to return call [phone] Reason for Call: Patient Question/Update: Patient's daughter calling because since dosage change patient has been way more confused, daughter wondering if it should be once a day or twice a day. Thank you calling [facility] [place]. You will receive a return call within [...] once mc (more content not included)... Normal [facility] CNOVon 01-03-2025 CNOV Office Visit ([facility] ) MADIHA PERALES ([id number]) 1945 F Date Time Provider Department 01/03/25 10:30 AM SARA RAMEY [facility] During your visit today, we recorded the following information about you: Pulse Respiration Blood pressure Weight 76/minute 16/minute 103/71 93.4 kg Sara Ramey APRN.MACHINE TECH 01/12/2025 5:21 PM Addendum [facility] Established Visit Consultation is requested by: Racheal De La Rosa [address] [facility] [address] PCP: Marie Devi [address] [place] [address] CEREBROVASCULAR HISTORY Madiha Perales is a 79 year old female presenting for hospital discharge follow up. Admitted to [facility] 12/03-12/10/24. From discharge summary Patient at baseline [...] currently doing electrolyte jello -gets therapy at [facility] -she has fluctuating mental status and physical capabilities -in hospital was started on Keppra due to potential epileptogenicity on EEG -needs to see Epilepsy clinic -overall happy disposition -denies any side effects to keppra including drowsiness, dizziness, irritability -has only complained of one headache since discharge -taking gabapentin BID -no GCA on temporal artery biopsy -follows with a Neurologist at [facility] for Parkinsons PAST MEDICAL HISTORY Diagnosis Date [...] Mother other (htn [Other]) Mother other (hyperlipidemia (more content not included)... Normal [facility] CBC-Complete Blood Cnt No Di ffon 12-14-2024 Erythrocyte distribution width (RBC) [Ratio] 13.9 % Normal 11.6-14.6 [facility] Comment on above: Order Comment: 209. Performed By: #### L 100.0500 #### [facility] [address] [place], [address] Hematocrit (Bld) [Volume fraction] 39.7 % Normal 37-47 [facility] Comment on above: Order Comment: .1 Performed By: #### L 100.0500 #### [facility] [address] [place], [address] Hemoglobin (Bld) [Mass/Vol] 13.3 g/dL Normal 12.0-15.0 [facility] Comment on above: Order Comment: . Performed By: #### L 100.0500 #### [facility] [address] [place], [address] MCH (RBC) [Entitic mass] 31.1 pg Normal 27.0-32.0 [facility] Comment on above: Order Comment: . Performed By: #### L 100.0500 #### [facility] [address] [place], [address] MCHC (RBC) [Mass/Vol] 33.5 g/dL Normal 32-36 [facility] Comment on above: Order Comment: . Performed By: #### L 100.0500 #### [facility] [address] [place], [address] MCV (RBC) [Entitic vol] 93.0 fL Normal 81-[address] [facility] Comment on above: Order Comment: .1 Performed By: #### L 100.0500 #### [facility] [address] [place], [address] Platelet mean volume (Bld) [Entitic vol] 10.3 fL Normal 6.2-12.0 [facility] Comment on above: Order Comment: .1 Performed By: #### L 100.0500 #### [facility] [address] [place], [address] Platelets (Bld) [#/Vol] 268 10*3/uL Normal 150-450 [facility] Comment on above: Order Comment: . Performed By: #### L 100.0500 #### [facility] [address] [place], [address] RBC (Bld) [#/Vol] 4.27 10*6/uL Normal 4.2-5.4 [facility] Comment on above: Order Comment: . Performed By: #### L 100.0500 #### [facility] [address] [place], [address] RDW SD 47.1 fl High 35.1-43.9 [facility] Comment on above: Order Comment: . Performed By: #### L 100.0500 #### [facility] [address] [place], [address] WBC (Bld) [#/Vol] 10.9 10*3/uL Normal 4.4-11.0 [facility] Comment on above: Order Comment: . Performed By: #### L 100.0500 #### [facility] [address] [place], [address] Basic Metabolic Profile (BMP )on 12-13-2024 BUN/CRE 26.3 RATIO High 10-20 [facility] Comment on above: Order Comment: . Performed By: #### L 100.0500, L500.2500 #### [facility] [address] [place], [address] Calcium [Mass/Vol] 8.7 mg/dL Normal 7.6-11.0 [facility] Comment on above: Order Comment: . Performed By: #### L 100.0500, L500.2500 #### [facility] [address] [place], [address] Chloride [Moles/Vol] 103 mmol/L Normal 98-108 [facility] Comment on above: Order Comment: 209.1 Performed By: #### L 100.0500, L500.2500 #### [facility] [address] [place], [address] CO2 [Moles/Vol] 26.0 mmol/L Normal 21.0-32.0 [facility] Comment on above: Order Comment: .1 Performed By: #### L 100.0500, L500.2500 #### [facility] [address] [place], [address] Creatinine [Mass/Vol] 0.69 mg/dL Low 0.70-1.20 [facility] Comment on above: Order Comment: . Performed By: #### L 100.0500, L500.2500 #### [facility] [address] [place], [address] GAP 10 Normal 5-15 [facility] Comment on above: Order Comment: . Performed By: #### L 100.0500, L500.2500 #### [facility] [address] [place], [address] GFR/1.73 sq M.predicted among non-blacks MDRD (S/P/Bld) [Vol rate/Area] 89 mL/min/{1.73_m2} Normal >60 [facility] Comment on above: Order Comment: .1 Result Comment: mL/m in/1.73m2 CKD-EPI Creatinine Equation (2020) Performed By: #### L 100.0500, L500.2500 #### [facility] [address] [place], [address] Glucose [Mass/Vol] 84 mg/dL Normal 70-99 [facility] Comment on above: Order Comment: .1 Performed By: #### L 100.0500, L500.2500 #### [facility] [address] [place], [address] Potassium [Moles/Vol] 4.3 mmol/L Normal 3.3-5.1 [facility] Comment on above: Order Comment: 209.1 Performed By: #### L 100.0500, L500.2500 #### [facility] [address] [place], [address] Sodium [Moles/Vol] 140 mmol/L Normal 133-145 [facility] Comment on above: Order Comment: 209.1 Performed By: #### L 100.0500, L500.2500 #### [facility] [address] [place], [address] Urea nitrogen [Mass/Vol] 18 mg/dL Normal 4-19 [facility] Comment on above: Order Comment: 209.1 Performed By: #### L 100.0500, L500.2500 #### [facility] [address] [place], [address] CBC-Complete Blood Cnt No Di ffon 12-13-2024 HCT Normal 37-47 [facility] Comment on above: Order Comment: 209.1 Result Comment: This specimen has been REJECTED due to Laboratory criteria: Quanity Not Sufficient. LAB has been notified of need of recollection. 12/13/24 0853 Annie Mendez Performed By: #### L 100.0500, L500.2500 #### [facility] [address] [place], [address] HGB Normal 12.0-15.0 [facility] Comment on above: Order Comment: 209.1 Result Comment: This specimen has been REJECTED due to Laboratory criteria: Quanity Not Sufficient. LAB has been notified of need of recollection. 12/13/24 0853 Annie Mendez Performed By: #### L 100.0500, L500.2500 #### [facility] [address] [place], [address] MCH Normal 27.0-32.0 [facility] Comment on above: Order Comment: 209.1 Result Comment: This specimen has been REJECTED due to Laboratory criteria: Quanity Not Sufficient. LAB has been notified of need of recollection. 12/13/24 0853 Annie Mendez Performed By: #### L 100.0500, L500.2500 #### [facility] [address] [place], [address] MCHC Normal 32-36 [facility] Comment on above: Order Comment: 209.1 Result Comment: This specimen has been REJECTED due to Laboratory criteria: Quanity Not Sufficient. LAB has been notified of need of recollection. 12/13/24 0853 Annie Mendez Performed By: #### L 100.0500, L500.2500 #### [facility] [address] [place], [address] MCV Normal 81-99 [facility] Comment on above: Order Comment: 209.1 Result Comment: This specimen has been REJECTED due to Laboratory criteria: Quanity Not Sufficient. LAB has been notified of need of recollection. 12/13/2453 Annie Mendez Performed By: #### L 100.0500, L500.2500 #### [facility] [address] [place], [address] PLT Normal 150-450 [facility] Comment on above: Order Comment: 209.1 Result Comment: This specimen has been REJECTED due to Laboratory criteria: Quanity Not Sufficient. LAB has been notified of need of recollection. 12/13/2453 Annie Mendez Performed By: #### L 100.0500, L500.2500 #### [facility] [address] [place], [address] RBC Normal 4.2-5.4 [facility] Comment on above: Order Comment: 209.1 Result Comment: This specimen has been REJECTED due to Laboratory criteria: Quanity Not Sufficient. LAB has been notified of need of recollection. 12/13/24 0853 Annie Mendez Performed By: #### L 100.0500, L500.2500 #### [facility] [address] [place], [address] RDW CV Normal 11.6-14.6 [facility] Comment on above: Order Comment: 209.1 Result Comment: This specimen has been REJECTED due to Laboratory criteria: Quanity Not Sufficient. LAB has been notified of need of recollection. 12/13/24 0853 Annie Mendez Performed By: #### L 100.0500, L500.2500 #### [facility] [address] [place], [address] RDW SD Normal 35.1-43.9 [facility] Comment on above: Order Comment: 209.1 Result Comment: This specimen has been REJECTED due to Laboratory criteria: Quanity Not Sufficient. LAB has been notified of need of recollection. 12/13/24 0853 Annie Mendez Performed By: #### L 100.0500, L500.2500 #### [facility] [address] [place], [address] WBC Normal 4.4-11.0 [facility] Comment on above: Order Comment: 209.1 Result Comment: This specimen has been REJECTED due to Laboratory criteria: Quanity Not Sufficient. LAB has been notified of need of recollection. 12/13/24 0853 Annie Mendez Performed By: #### L 100.0500, L500.2500 #### [facility] [address] [place], [address] ANES POSTPROC EVALon 025 ANES POSTPROC EVAL HNO ID: [id number] Author: PUMA MADRIGAL MD Service: Anesthesiology Author Type: Anesthesiologist Type: Anesthesia Postprocedure Evaluation Filed: 12/10/2024 08:02 Note Text: POST ANESTHESIA EVALUATION NOTE : 1945 Procedure Summary Date: 12/09/24 Room / Location: [facility] OR02 / [facility] OR Anesthesia Start: 1451 Anesthesia Stop: 1602 [...] December 10, 2024 TIME: 8:01 AM CSN: [id number] Normal [facility] Basic metabolic 2000 panelon 12-10-2024 Anion gap [Moles/Vol] 8 mmol/L Normal 8-15 [facility] Comment on above: Order Comment: Speci men Type: BLOOD SPECIMENOrdering Facility: [facility] Address: [address] [place] [address] Performed By: #### 2 4321-2 ####[address] [facility]ORATORYCLIA [id number] [place] [address] [place] Calcium [Mass/Vol] 8.9 mg/dL Normal 8.5-10.2 [facility] Comment on above: Order Comment: Speci men Type: BLOOD SPECIMENOrdering Facility: [facility] Address: [address] [place] [address] Performed By: #### 2 4321-2 ####[address] LABORATORYCLIA [id number] [place] [address] [place] Chloride [Moles/Vol] 104 mmol/L Normal 98-107 [facility] Comment on above: Order Comment: Speci men Type: BLOOD SPECIMENOrdering Facility: [facility] Address: [address] [place] [address] Performed By: #### 2 4321-2 ####[facility]ATORYCLIA [id number] [place] [address] [place] CO2 [Moles/Vol] 30 mmol/L Normal 22-30 [facility] Comment on above: Order Comment: Speci men Type: BLOOD SPECIMENOrdering Facility: [facility] Address: [address] [place] [address] Performed By: #### 2 4321-2 ####[facility]ATORYCLIA [id number] [address] [place] Creatinine [Mass/Vol] 0.74 mg/dL Normal 0.58-0.96 [facility] Comment on above: Order Comment: Speci men Type: BLOOD SPECIMENOrdering Facility: [facility] Address: [address] [place] [address] Performed By: #### 2 4321-2 ####[facility]ATORYCLIA [id number] [address] Creatinine and Glomerular filtration rate.predicted panel (S/P/Bld) 83 mL/min/1.73m??? Normal >=60 [facility] Comment on above: Order Comment: Speci men Type: BLOOD SPECIMENOrdering Facility: [facility] Address: [address] [place] [address] Result Comment: Mateo mated Glomerular Filtration Rate [...] Performed By: #### 2 4321-2 ####[facility]ORYCLIA [id number] [address] [place] Glucose [Mass/Vol] 91 mg/dL Normal 74-99 [facility] Comment on above: Order Comment: Speci men Type: BLOOD SPECIMENOrdering Facility: [facility] Address: [address] [place] [address] Result Comment: The [place] [employer] Association (ADA) provides guidance for cutoff [...] Standards of Medical Care in Diabetes 2016, [place] [employer]. Diabetes Care. 2016.39(Suppl 1). Performed By: #### 2 4321-2 ####[facility]ATORYCLIA [id number] [place] [address] [place] Potassium [Moles/Vol] 4.5 mmol/L Normal 3.7-5.1 [facility] Comment on above: Order Comment: Speci men Type: BLOOD SPECIMENOrdering Facility: [facility] Address: [address] [place] [address] Performed By: #### 2 4321-2 ####[facility]ATORYCLIA [id number] [address] [place] Sodium [Moles/Vol] 142 mmol/L Normal 136-144 [facility] Comment on above: Order Comment: Speci men Type: BLOOD SPECIMENOrdering Facility: [facility] Address: [address] [place] [address] Performed By: #### 2 4321-2 ####[facility]ATORYCLIA [id number] [place] [address] [place] Urea nitrogen [Mass/Vol] 19 mg/dL Normal 7-21 [facility] Comment on above: Order Comment: Speci men Type: BLOOD SPECIMENOrdering Facility: [facility] Address: [address] [place] [address] Performed By: #### 2 4321-2 ####[facility]ATORYCLIA [id number] [address] [place] CBC W Auto Differential pane l (Bld)on 12-10-2024 Basophils (Bld) [#/Vol] 10*3/uL Normal <0.11 [facility] Comment on above: Order Comment: Speci men Type: BLOOD SPECIMENOrdering Facility: [facility] Address: [address] [place] [address] Performed By: #### 5 7021-8 ####[facility]ATORYCLIA [id number] [place] [address] [place] Basophils/100 WBC (Bld) 0.0 % Normal [facility] Comment on above: Order Comment: Speci men Type: BLOOD SPECIMENOrdering Facility: [facility] Address: [address] [place] [address] Performed By: #### 5 7021-8 ####[facility]ATORYCLIA [id number] [address] Differential cell count method Nom (Bld) Auto Normal [facility] Comment on above: Order Comment: Speci men Type: BLOOD SPECIMENOrdering Facility: [facility] Address: [address] [place] [address] Performed By: #### 5 7021-8 ####[facility]ATORYCLIA [id number] [place] [address] [place] Eosinophils (Bld) [#/Vol] 10*3/uL Normal <0.46 [facility] Comment on above: Order Comment: Speci men Type: BLOOD SPECIMENOrdering Facility: [facility] Address: [address] [place] [address] Performed By: #### 5 7021-8 ####[facility]ATORYCLIA [id number] [address] [place] Eosinophils/100 WBC (Bld) 0.1 % Normal [facility] Comment on above: Order Comment: Speci men Type: BLOOD SPECIMENOrdering Facility: [facility] Address: [address] [place] [address] Performed By: #### 5 7021-8 ####[facility]ATORYCLIA [id number] [address] [place] Erythrocyte distribution width (RBC) [Ratio] 13.5 % Normal 11.5-15.0 [facility] Comment on above: Order Comment: Speci men Type: BLOOD SPECIMENOrdering Facility: [facility] Address: [address] [place] [address] Performed By: #### 5 7021-8 ####[facility]ATORYCLIA [id number] [place] [address] [place] Hematocrit (Bld) [Volume fraction] 38.6 % Normal 36.0-46.0 [facility] Comment on above: Order Comment: Speci men Type: BLOOD SPECIMENOrdering Facility: [facility] Address: [address] [place] [address] Performed By: #### 5 7021-8 ####[facility]ATORYCLIA [id number] [address] [place] Hemoglobin (Bld) [Mass/Vol] 12.6 g/dL Normal 11.5-15.5 [facility] Comment on above: Order Comment: Speci men Type: BLOOD SPECIMENOrdering Facility: [facility] Address: [address] [place] [address] Performed By: #### 5 7021-8 ####[facility]ATORYCLIA [id number] [address] [place] Immature granulocytes (Bld) [#/Vol] 0.07 10*3/uL Normal <0.10 [facility] Comment on above: Order Comment: Speci men Type: BLOOD SPECIMENOrdering Facility: [facility] Address: [address] [place] [address] Performed By: #### 5 7021-8 ####[facility]ATORYCLIA [id number] [address] [place] Immature granulocytes/100 WBC (Bld) 0.7 % Normal [facility] Comment on above: Order Comment: Speci men Type: BLOOD SPECIMENOrdering Facility: [facility] Address: [address] [place] [address] Performed By: #### 5 7021-8 ####[facility]ATORYCLIA [id number] [address] [place] Lymphocytes (Bld) [#/Vol] 1.36 10*3/uL Normal 1.00-4.00 [facility] Comment on above: Order Comment: Speci men Type: BLOOD SPECIMENOrdering Facility: [facility] Address: [address] [place] [address] Performed By: #### 5 7021-8 ####[facility]ORATORYCLIA [id number] [address] [place] Lymphocytes/100 WBC (Bld) 14.4 % Normal [facility] Comment on above: Order Comment: Speci men Type: BLOOD SPECIMENOrdering Facility: [facility] Address: [address] [place] [address] Performed By: #### 5 7021-8 ####[facility]ATORYCLIA [id number] [address] [place] MCH (RBC) [Entitic mass] 30.5 pg Normal 26.0-34.0 [facility] Comment on above: Order Comment: Speci men Type: BLOOD SPECIMENOrdering Facility: [facility] Address: [address] [place] [address] Performed By: #### 5 7021-8 ####[facility]ATORYCLIA [id number] [address] MCHC (RBC) [Mass/Vol] 32.6 g/dL Normal 30.5-36.0 [facility] Comment on above: Order Comment: Speci men Type: BLOOD SPECIMENOrdering Facility: [facility] Address: [address] [place] [address] Performed By: #### 5 7021-8 ####[facility]ATORYCLIA [id number] [address] MCV (RBC) [Entitic vol] 93.5 fL Normal 80.0-100.0 [facility] Comment on above: Order Comment: Speci men Type: BLOOD SPECIMENOrdering Facility: [facility] Address: [address] [place] [address] Performed By: #### 5 7021-8 ####[facility]ORATORYCLIA [id number] [place] [address] [place] Monocytes (Bld) [#/Vol] 0.62 10*3/uL Normal <0.87 [facility] Comment on above: Order Comment: Speci men Type: BLOOD SPECIMENOrdering Facility: [facility] Address: [address] [place] [address] Performed By: #### 5 7021-8 ####[facility] LABORATORYCLIA [id number] [address] OF CED Monocytes/100 WBC (Bld) 6.6 % Normal [facility] Comment on above: Order Comment: Speci men Type: BLOOD SPECIMENOrdering Facility: [facility] Address: [address] [place] [address] Performed By: #### 5 7021-8 ####CON[facility] LABORATORYCLIA [id number] [place] [address] [place] Neutrophils (Bld) [#/Vol] 7.38 10*3/uL Normal 1.45-7.50 [facility] Comment on above: Order Comment: Speci men Type: BLOOD SPECIMENOrdering Facility: [facility] Address: [address] [place] [address] Performed By: #### 5 7021-8 ####CON[facility] LABORATORYCLIA [id number] [address] OF CED Neutrophils/100 WBC (Bld) 78.2 % Normal [facility] Comment on above: Order Comment: Speci men Type: BLOOD SPECIMENOrdering Facility: [facility] Address: [address] [place] [address] Performed By: #### 5 7021-8 ####CON[facility] LABORATORYCLIA [id number] [place] [address] [place] Nucleated RBC (Bld) [#/Vol] 10*3/uL Normal <0.01 [facility] Comment on above: Order Comment: Speci men Type: BLOOD SPECIMENOrdering Facility: [facility] Address: [address] [place] [address] Performed By: #### 5 7021-8 ####CON[facility] LABORATORYCLIA [id number] [place] [address] [place] Nucleated RBC/100 WBC (Bld) [Ratio] 0.0 /100 WBC Normal [facility] Comment on above: Order Comment: Speci men Type: BLOOD SPECIMENOrdering Facility: [facility] Address: [address] [place] [address] Performed By: #### 5 7021-8 ####CON[facility] LABORATORYCLIA [id number] [place] [address] [place] Platelet mean volume (Bld) [Entitic vol] 9.9 fL Normal 9.0-12.7 [facility] Comment on above: Order Comment: Speci men Type: BLOOD SPECIMENOrdering Facility: [facility] Address: [address] [place] [address] Performed By: #### 5 7021-8 ####CON[facility] LABORATORYCLIA [id number] [place] [address] [place] Platelets (Bld) [#/Vol] 239 10*3/uL Normal 150-400 [facility] Comment on above: Order Comment: Speci men Type: BLOOD SPECIMENOrdering Facility: [facility] Address: [address] [place] [address] Performed By: #### 5 7021-8 ####CON[facility] LABORATORYCLIA [id number] [place] [address] [place] RBC (Bld) [#/Vol] 4.13 10*6/uL Normal 3.90-5.20 [facility] Comment on above: Order Comment: Speci men Type: BLOOD SPECIMENOrdering Facility: [facility] Address: [address] [place] [address] Performed By: #### 5 7021-8 ####CON[facility] LABORATORYCLIA [id number] [address] OF CED WBC (Bld) [#/Vol] 9.44 10*3/uL Normal 3.70-11.00 [facility] Comment on above: Order Comment: Speci men Type: BLOOD SPECIMENOrdering Facility: [facility] Address: [address] [place], [place] [address] [id number] Performed By: #### 5 7021-8 ####CONNER LABORATORYCLIA [id number] [place] [id number] [place] HUMBERTODSfarheen 12-10-2024 CNDS HNO ID: [id number] Author: SHAW KINSEY MD Service: Hospital Medicine Author Type: Physician Type: Discharge Summary Filed: 12/10/2024 13:07 Note Text: DISCHARGE SUMMARY PATIENT NAME: Madiha Perales ADMISSION DATE: 12/03/2024 DISCHARGE DATE: 12/10/2024 ATTENDING PHYSICIAN: hSaw Kinsey MD Code Status: DNR-CCA, DNI PCP: [...] (more content not included)... Normal [facility] CONSULT PROGon 12-10-2024 CONSULT PROG HNO ID: [id number] Author: GREG AGEE JR, MD Service: Neurology General Author Type: Physician Type: Consult Progress Note Filed: 12/10/2024 18:32 Note Text: TELENEUROLOGY CONSULT PROGRESS NOTE The Teleneurologist or RONNIE is available from 8 am to 5 pm on weekdays. On weekends, at [address] and [address], the Teleneurologist or RONNIE is available from 8 am to 5 pm, [facility] 8 am to 12 pm, [facility] 1 pm to 5 pm, [place] 8 am to 12 pm, [place] 1 pm to 5 pm. Statutory holidays do not have teleneuro coverage. [address] : During Off hours for Teleneurology please page (not call) [facility] [phone] concert pianist for concerns. [place]: During Off hours for Teleneurology please page (not call) [place] [facility] [phone] concert pianist for concerns. [facility]: There is no off-hours coverage for Teleneurology. [...] date. Examination was completed by Teleneurology video (teleWapi system) assisted by Teleneurology (more content not included)... Normal [facility] Magnesium SerPl-mCncon 12-10 Magnesium [Mass/Vol] 2.2 mg/dL Normal 1.7-2.3 [facility] Comment on above: Order Comment: Speci men Type: BLOOD SPECIMENOrdering Facility: [facility] Address: [address] [place] [address] Performed By: #### 1 2458-9 ####[address] LABORATORYCLIA [id number] [place] [address] [facility] ALLIED HEALTHon 12-09-2024 ALLIED HEALTH HNO ID: [id number] Author: LILIAN SHAW CT Service: Radiology Author [...] PATIENT PRESENTS WITH AN IMPLANTABLE OR ATTACHED BEDSPREAD CUTTER: No RADIOLOGY DEPARTMENT: MR; Exam(s) Completed: Head: Sagittal Sinus MRV. Aromatherapy Administered: No PERIPHERAL IV DATA: Not applicable SIGNED BY: PAULA PATTERSON LAW ENFORCEMENT DIRECTOR December 09, 2024 2:18 PM [facility] ANES PRE-OPon 12-09-2024 [facility] PRE-OP HNO ID: [id number] Author: REED CONO MD Service: Anesthesiology Author Type: Anesthesiologist Type: Anesthesia Preprocedure Evaluation Filed: 12/09/2024 14:35 Note Text: ANESTHESIOLOGY DAY OF SURGERY NOTE : 1945 Procedure Information Date/Time: 12/09/24 1515 Procedure: BIOPSY ARTERY TEMPORAL (Right: Temporal) Location: [place] OR02 / [place] OR Surgeons: Torrie Choi MD Estimated body [...] a current smoker. NPO Status: adequate Beta Kseha Monitoring Plan Monitoring plan: standard ASA. Post Procedure Analgesic Plan Postoperative analgesic plan: parenteral or oral opioids and multimodal analgesia. Informed Consent Anesthetic risks, benefits, alternatives, personnel and consent discussed: yes. Patient / Responsible Democrat agrees to proceed: yes Patient / Surrogate [...] December 09, 2024 TIME: 2:35 PM CSN: [id number] [facility] BRIEF OP NOTon 12-09-2024 BRIEF OP NOT HNO ID: [id number] Author: TORRIE CHOI MD Service: General Surgery Author Type: Physician Type: Brief Op Note Filed: 12/09/2024 16:05 Note Text: BRIEF OPERATIVE / PROCEDURE NOTE LOG ID: [id number] SURGERY/PROCEDURE DATE: 12/09/2024 INCISION/PROCEDURE START TIME: 3:16 PM INCISION CLOSE/PROCEDURE END TIME: 3:48 PM SURGEON(S)/PROCEDURAL IST(S) AND SANDBLASTER GLASS(S): Surgeons and Role: * Torrie Choi MD - Primary Physician Locum Tenens: No Diaz PA-C SURGERY/PROCEDURE(S): Right temporal artery biopsy ANESTHESIA: Monitored Anesthesia Care FINDINGS: see report ESTIMATED BLOOD LOSS: 20 ml SPECIMENS: 1 COMPLICATIONS: None CLOSURE TECHNIQUE: Primary PRE-OP/PRE-PROCEDURE DIAGNOSIS: headache POST-OP/POST-PROCEDUR E DIAGNOSIS: Same as Preop # [id number] SIGNATURE: Torrie Choi MD PATIENT NAME: Madiha Perales DATE: December 09, 2024 TIME: 4:01 PM [facility] MRV BRAIN WO IVCONon 025 MRV BRAIN WO IVCON * * *Final Report* * * DATE OF EXAM: Dec 09 2024 2:29PM [facility] 0335 - MRV BRAIN WO IVCON / PROCEDURE REASON: Headache, uncomplicated (Ped 0-18y) * * * * Physician Interpretation * * * * EXAMINATION: MRV BRAIN WO IVCON CLINICAL HISTORY: Headache TECHNIQUE: 3D tnqu-ms-mehcgw MRV with post-processing performed at the modality [...] significant focal narrowing or intraluminal filling defects. Ship Purser: JARVIS Transcribe Date/Time: Dec 09 2024 2:38P Dictated by : CELI HADDAD MD This examination was interpreted and the report reviewed and electronically signed by: CELI HADDAD MD on Dec 09 2024 2:45PM EST [id number] Normal [facility] OPERATIVE NOon 12-09-2024 OPERATIVE NO HNO ID: [id number] Author: TORRIE CHOI MD Service: General Surgery Author Type: Physician Type: Operative Report Filed: 12/09/2024 16:44 Note Text: [facility] - Operative Report MADIHA PERALES : 1945 AGE: 79. SEX: F PATIENT TYPE: I HOSP SVC: Medical LOCATION: [facility] ATTENDING PHYSICIAN: SHAW KINSEY CSN NUMBER: [id number] DATE OF SURGERY/PROCEDURE: 12/09/2024 INCISION/PROCEDURE START TIME: 3:16 p.m. INCISION CLOSE/PROCEDURE END TIME: 3:48 p.m. PREOPERATIVE DIAGNOSIS: Headaches. POSTOPERATIVE DIAGNOSIS: Headaches. SURGEON: Torrie Choi M.D. SANDBLASTER GLASS: SREEDHAR Nathan. SURGERY/PROCEDURE: Right temporal artery biopsy. [...] qualified residents or follow staff available. The wardrobe assistant's tasks including retraction, hemostasis, and assistance [...] room in good condition. Torrie Choi M.D. KED:[id number] /[id number] [facility] Pathology biopsy report Phil (Tiss)on 12-09-2024 AP DISCLAIMER [facility] Comment on above: Order Comment: Speci men Type: TISSUE SPECIMENOrdering Facility: [facility] Address: [address] [place] [address] Result Comment: Liliana glasgow Developed Test (LDT) Disclaimer: Performance characteristics of immunohistochemical, immunofluorescent, and chromogenic in-situ hybridization tests have been determined by the performing laboratory within [facility]'s [facility] Pathology and Laboratory Medicine Department ([facility], [facility], [facility], [facility], [facility], [facility], or [facility]) in a manner consistent with CLIA requirements. One or more of these tests may not have been cleared or approved by the FDA. [facility] is regulated under CLIA as qualified to perform high-complexity testing. These tests are used for clinical purposes. These should not be regarded as investigational or for research. Positive and negative controls stain appropriately. Performed By: #### 6 6121-5 ####[facility] LABCLIA [id number] [place] [address] [place] CASE REPORT Normal [facility] Comment on above: Order Comment: Speci men Type: TISSUE SPECIMENOrdering Facility: [facility] Address: [address] [place] [address] Result Comment: Surg [facility] Pathology Report Case: [id number] Authorizing Provider: Torrie Choi MD Collected: 12/09/2024 03:17 PM Ordering Location: [facility] Surgery Received: 12/10/2024 08:08 AM Pathologist: Johnathon Vasquez MD, PhD Specimen: Artery, Temporal, Biopsy, right temporal artery biopsy Performed By: #### 6 6121-5 ####[facility] [id number] [address] [address] [facility] OF CED CLINICAL HISTORY Normal [facility] Comment on above: Order Comment: Speci men Type: TISSUE SPECIMENOrdering Facility: [facility] Address: [address] [place] [address] Result Comment: 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 A Movat stain was [...] active or healed arteritis in this biopsy. [facility] Comment on above: Order Comment: Speci men Type: TISSUE SPECIMENOrdering Facility: [facility] Address: [address] [place] [address] Performed By: #### 6 6121-5 ####[facility]ENTER[facility] [id number] [place] [id number] [facility] FINAL DIAGNOSIS [facility] Comment on above: Order Comment: Speci men Type: TISSUE SPECIMENOrdering Facility: [facility] Address: [address] [place] [address] Result Comment: A. R ight temporal artery, biopsy: - Negative for arteritis. at 1524 EDT Performed By: #### 6 6121-5 ####[facility] [id number] [place] [address] STATES OF CED FINAL PERFORMING LAB [facility] Comment on above: Order Comment: Speci men Type: TISSUE SPECIMENOrdering Facility: [facility] Address: [address] [place] [address] Result Comment: Diag nostic interpretation performed at: [facility], [address] [place] [address], [facility] [place] [address] CLIA# [id number] Proof Inspector: Magdaleno Cano MD Performed By: #### 6 6121-5 ####[facility] LABCL[facility] [id number] [address] STATES OF CED GROSS DESCRIPTION [facility] Comment on above: Order Comment: Speci men Type: TISSUE SPECIMENOrdering Facility: [facility] Address: [address] [place] [address] Result Comment: A. Zoe brewer, Temporal, Biopsy Received in formalin is one segment of cylindrical tissue measuring 2.5 x 0.3 x 0.3 cm, red-brown and of a soft and fibrous consistency. Totally submitted in one cassette. MRV December 10, 2024 12:19 PM Gross examination performed at [facility], [address] [place] [address] Performed By: #### 6 6121-5 ####[facility] LABCLIA [id number] [address] OF CED THERAPY NTon 12-09-2024 THERAPY NT HNO ID: [id number] Author: LOBITO CAVAZOS PT Service: Physical Therapy Author Type: Physical Therapist Type: Therapy (PT/OT/Speech/Resp) Filed: 12/09/2024 13:48 Note Text: Summary: PT treatment Physical Therapy Treatment Summary SERVICE DATE: 12/09/2024 SERVICE TIME: 1140 to 1219 ROOM: [id number] PT 6 Clicks Score: 13 DISCHARGE RECOMMENDATIONS [...] spouse gets her and out of bed, [facility] pt attempted to get out and fell a few weeks ago. Just started adult day care 5 days a week, recently had gone 2 days a week and family thinks she sits in w/c and they get her to toilet. Spouse assists with toilet transfer at [facility], spouse completes hygiene, some incontinent epsidoes [...] DIAGNOSIS Reduced (more content not included)... Normal [facility] ALLIED HEALTHon 12-08-2024 ALLIED HEALTH HNO ID: [id number] Author: LILIAN SHAW CT Service: Radiology Author [...] PATIENT PRESENTS WITH AN IMPLANTABLE OR ATTACHED BEDSPREAD CUTTER: No RADIOLOGY DEPARTMENT: MR; Exam(s) Completed: Head: [place] MRA. Lavender Administered: No PERIPHERAL IV DATA: Not applicable SIGNED BY: RICHARD Viramontes December 08, 2024 9:16 AM Normal [facility] Basic metabolic 2000 panelon 12-08-2024 Anion gap [Moles/Vol] 9 mmol/L Normal 8-15 [facility] Comment on above: Order Comment: Yoav lujan Type: BLOOD SPECIMENOrdering Facility: [facility] Address: [address] [place] [address] Performed By: #### 2 4321-, ####[address] [facility] LABORATORYCLIA [id number] [place] [address] [place] Calcium [Mass/Vol] 8.9 mg/dL Normal 8.5-10.2 [facility] Comment on above: Order Comment: Yoav uljan Type: BLOOD SPECIMENOrdering Facility: [facility] Address: [address] [place] [address] Performed By: #### 2 4321-2, ####[address] LABORATORYCLIA [id number] [place] [address] [place] Chloride [Moles/Vol] 104 mmol/L Normal 98-107 [facility] Comment on above: Order Comment: Speci men Type: BLOOD SPECIMENOrdering Facility: [facility] Address: [address] [place] [address] Performed By: #### 2 432-2, ####[facility] LABORATORYCLIA [id number] [place] [address] [place] CO2 [Moles/Vol] 27 mmol/L Normal 22-30 [facility] Comment on above: Order Comment: Speci men Type: BLOOD SPECIMENOrdering Facility: [facility] Address: [address] [place] [address] Performed By: #### 2 4322, ####[facility] LABORATORYCLIA [id number] [place] [address] [place] Creatinine [Mass/Vol] 0.51 mg/dL Low 0.58-0.96 [facility] Comment on above: Order Comment: Speci men Type: BLOOD SPECIMENOrdering Facility: [facility] Address: [address] [place] [address] Performed By: #### 2 4320-07, ####CON[facility] LABORATORYCLIA [id number] [address] OF [facility] Creatinine and Glomerular filtration rate.predicted panel (S/P/Bld) 96 mL/min/1.73m??? Normal >=60 [facility] Comment on above: Order Comment: Speci men Type: BLOOD SPECIMENOrdering Facility: [facility] Address: [address] [place] [address] Result Comment: Mateo mated Glomerular Filtration Rate [...] Performed By: #### 2 432-2, ####[facility] LABORATORYCLIA [id number] [place] [id number] [place] Glucose [Mass/Vol] 134 mg/dL High 74-99 [facility] Comment on above: Order Comment: Speci men Type: BLOOD SPECIMENOrdering Facility: [facility] Address: [address] [place], [place] [address] Result Comment: The [place] Diabetes Association (ADA) provides guidance for cutoff [...] Standards of Medical Care in Diabetes 2016, [place] [employer] Association. Diabetes Care. 2016.39(Suppl 1). Performed By: #### 2 4321-2, ####[facility] LABORATORYCLIA [id number] [place] [address] [place] Potassium [Moles/Vol] 4.7 mmol/L Normal 3.7-5.1 [facility] Comment on above: Order Comment: Nehemiahi men Type: BLOOD SPECIMENOrdering Facility: [facility] Address: [address] [place] [address] Performed By: #### 2 4320-07, ####[facility] LABORATORYCLIA [id number] [place] [address] [place] Sodium [Moles/Vol] 140 mmol/L Normal 136-144 [facility] Comment on above: Order Comment: Speci men Type: BLOOD SPECIMENOrdering Facility: [facility] Address: [address] [place] [address] Performed By: #### 2 4320-2, ####[facility] LABORATORYCLIA [id number] [place] [address] [place] Urea nitrogen [Mass/Vol] 15 mg/dL Normal 7-21 [facility] Comment on above: Order Comment: Nehemiahi men Type: BLOOD SPECIMENOrdering Facility: [facility] Address: [address] [place] [id number] Performed By: #### 2 4320-2, 94562-6 ####[facility] LABORATORYCLIA [id number] [place] [address] [place] CBC W Auto Differential pane l (Bld)on 12-08-2024 Basophils (Bld) [#/Vol] 10*3/uL Normal <0.11 [facility] Comment on above: Order Comment: Speci men Type: BLOOD SPECIMENOrdering Facility: [facility] Address: [address] [place] [address] Performed By: #### 5 7021-8 ####[facility] LABORATORYCLIA [id number] [place] [address] [place] Basophils/100 WBC (Bld) 0.1 % Normal [facility] Comment on above: Order Comment: Speci men Type: BLOOD SPECIMENOrdering Facility: [facility] Address: [address] [place] [address] Performed By: #### 5 7021-8 ####[facility] LABORATORYCLIA [id number] [address] STATES [facility] Differential cell count method Nom (Bld) Auto Normal [facility] Comment on above: Order Comment: Speci men Type: BLOOD SPECIMENOrdering Facility: [facility] Address: [address] [place] [address] Performed By: #### 5 7021-8 ####[facility] LABORATORYCLIA [id number] [place] [address] [place] Eosinophils (Bld) [#/Vol] 10*3/uL Normal <0.46 [facility] Comment on above: Order Comment: Speci men Type: BLOOD SPECIMENOrdering Facility: [facility] Address: [address] [place] [address] Performed By: #### 5 7021-8 ####[facility] LABORATORYCLIA [id number] [address] Eosinophils/100 WBC (Bld) 0.0 % Normal [facility] Comment on above: Order Comment: Speci men Type: BLOOD SPECIMENOrdering Facility: [facility] Address: [address] [place] [address] Performed By: #### 5 7021-8 ####[facility] LABORATORYCLIA [id number] [address] CED Erythrocyte distribution width (RBC) [Ratio] 13.3 % Normal 11.5-15.0 [facility] Comment on above: Order Comment: Speci men Type: BLOOD SPECIMENOrdering Facility: [facility] Address: [address] [place] [address] Performed By: #### 5 7021-8 ####[facility] LABORATORYCLIA [id number] [place] [address] [facility] OF CED Hematocrit (Bld) [Volume fraction] 40.2 % Normal 36.0-46.0 [facility] Comment on above: Order Comment: Speci men Type: BLOOD SPECIMENOrdering Facility: [facility] Address: [address] [place] [address] Performed By: #### 5 7021-8 ####[facility] LABORATORYCLIA [id number] [address] STATES OF [place] Hemoglobin (Bld) [Mass/Vol] 13.2 g/dL Normal 11.5-15.5 [facility] Comment on above: Order Comment: Speci men Type: BLOOD SPECIMENOrdering Facility: [facility] Address: [address] [place] [address] Performed By: #### 5 7021-8 ####[facility] LABORATORYCLIA [id number] [address] OF CED Immature granulocytes (Bld) [#/Vol] 0.07 10*3/uL Normal <0.10 [facility] Comment on above: Order Comment: Speci men Type: BLOOD SPECIMENOrdering Facility: [facility] Address: [address] [place] [address] Performed By: #### 5 7021-8 ####[facility] LABORATORYCLIA [id number] [address] Immature granulocytes/100 WBC (Bld) 0.7 % Normal [facility] Comment on above: Order Comment: Speci men Type: BLOOD SPECIMENOrdering Facility: [facility] Address: [address] [place] [address] Performed By: #### 5 7021-8 ####[facility] LABORATORYCLIA [id number] [address] OF CED Lymphocytes (Bld) [#/Vol] 0.71 10*3/uL Low 1.00-4.00 [facility] Comment on above: Order Comment: Speci men Type: BLOOD SPECIMENOrdering Facility: [facility] Address: [address] [place] [address] Performed By: #### 5 7021-8 ####[facility] LABORATORYCLIA [id number] [address] Lymphocytes/100 WBC (Bld) 6.7 % Normal [facility] Comment on above: Order Comment: Speci men Type: BLOOD SPECIMENOrdering Facility: [facility] Address: [address] [place] [address] Performed By: #### 5 7021-8 ####[facility] LABORATORYCLIA [id number] [address] MCH (RBC) [Entitic mass] 30.7 pg Normal 26.0-34.0 [facility] Comment on above: Order Comment: Speci men Type: BLOOD SPECIMENOrdering Facility: [facility] Address: [address] [place] [address] Performed By: #### 5 7021-8 ####[facility] LABORATORYCLIA [id number] [address] MCHC (RBC) [Mass/Vol] 32.8 g/dL Normal 30.5-36.0 [facility] Comment on above: Order Comment: Speci men Type: BLOOD SPECIMENOrdering Facility: [facility] Address: [address] [place] [address] Performed By: #### 5 7021-8 ####[facility] LABORATORYCLIA [id number] [address] MCV (RBC) [Entitic vol] 93.5 fL Normal 80.0-100.0 [facility] Comment on above: Order Comment: Speci men Type: BLOOD SPECIMENOrdering Facility: [facility] Address: [address] [place] [address] Performed By: #### 5 7021-8 ####CONN[facility] LABORATORYCLIA [id number] [place] [address] [place] Monocytes (Bld) [#/Vol] 0.34 10*3/uL Normal <0.87 [facility] Comment on above: Order Comment: Speci men Type: BLOOD SPECIMENOrdering Facility: [facility] Address: [address] [place] [address] Performed By: #### 5 7021-8 ####[facility] LABORATORYCLIA [id number] [place] [address] [place] Monocytes/100 WBC (Bld) 3.2 % Normal [facility] Comment on above: Order Comment: Speci men Type: BLOOD SPECIMENOrdering Facility: [facility] Address: [address] [place] [address] Performed By: #### 5 7021-8 ####CON[facility] LABORATORYCLIA [id number] [place] [address] [place] Neutrophils (Bld) [#/Vol] 9.45 10*3/uL High 1.45-7.50 [facility] Comment on above: Order Comment: Speci men Type: BLOOD SPECIMENOrdering Facility: [facility] Address: [address] [place] [address] Performed By: #### 5 7021-8 ####CON[facility] LABORATORYCLIA [id number] [place] [address] [place] Neutrophils/100 WBC (Bld) 89.3 % Normal [facility] Comment on above: Order Comment: Speci men Type: BLOOD SPECIMENOrdering Facility: [facility] Address: [address] [place] [address] Performed By: #### 5 7021-8 ####CON[facility] LABORATORYCLIA [id number] [place] [address] [place] Nucleated RBC (Bld) [#/Vol] 10*3/uL Normal <0.01 [facility] Comment on above: Order Comment: Speci men Type: BLOOD SPECIMENOrdering Facility: [facility] Address: [address] [place] [address] Performed By: #### 5 7021-8 ####CON[facility] LABORATORYCLIA [id number] [place] [address] [place] Nucleated RBC/100 WBC (Bld) [Ratio] 0.0 /100 WBC Normal [facility] Comment on above: Order Comment: Speci men Type: BLOOD SPECIMENOrdering Facility: [facility] Address: [address] [place] [address] Performed By: #### 5 7021-8 ####CON[facility] LABORATORYCLIA [id number] [place] [address] [place] Platelet mean volume (Bld) [Entitic vol] 10.3 fL Normal 9.0-12.7 [facility] Comment on above: Order Comment: Speci men Type: BLOOD SPECIMENOrdering Facility: [facility] Address: [address] [place] [address] Performed By: #### 5 7021-8 ####CON[facility] LABORATORYCLIA [id number] [place] [address] [place] Platelets (Bld) [#/Vol] 207 10*3/uL Normal 150-400 [facility] Comment on above: Order Comment: Speci men Type: BLOOD SPECIMENOrdering Facility: [facility] Address: [address] [place] [address] Performed By: #### 5 7021-8 ####CON[facility] LABORATORYCLIA [id number] [place] [address] [place] RBC (Bld) [#/Vol] 4.30 10*6/uL Normal 3.90-5.20 [facility] Comment on above: Order Comment: Speci men Type: BLOOD SPECIMENOrdering Facility: [facility] Address: [address] [place] [address] Performed By: #### 5 7021-8 ####CON[facility] LABORATORYCLIA [id number] [place] [address] [place] WBC (Bld) [#/Vol] 10.58 10*3/uL Normal 3.70-11.00 [facility] Comment on above: Order Comment: Speci men Type: BLOOD SPECIMENOrdering Facility: [facility] Address: [address] [place] [address] Performed By: #### 5 7021-8 ####[facility] LABORATORYCLIA [id number] [place] [address] [place] CONSULT PROGon 12-08-2024 CONSULT PROG HNO ID: [id number] Author: GREG AGEE JR, MD Service: Neurology General Author Type: Physician Type: Consult Progress Note Filed: 12/08/2024 08:40 Note Text: TELENEUROLOGY CONSULT PROGRESS NOTE The Teleneurologist or RONNIE is available from 8 am to 5 pm on weekdays. On weekends, at [address] and [address], the Teleneurologist or RONNIE is available from 8 am to 5 pm, [facility] 8 am to 12 pm, [facility] 1 pm to 5 pm, [facility] 8 am to 12 pm, [place] 1 pm to 5 pm. Statutory holidays do not have teleneuro coverage. [address] : During Off hours for Teleneurology please page (not call) [facility] [address] concert pianist for concerns. [facility]: During Off hours for Teleneurology please page (not call) [place] [facility] [phone] concert pianist for concerns. [facility]: There is no off-hours coverage for Teleneurology. [...] (more content not included)... Normal [facility] MRA BRAIN WO IVCONon 025 MRA BRAIN WO IVCON * * *Final Report* * * DATE OF EXAM: Dec 08 2024 9:30AM [facility] 0272 - MRA BRAIN WO IVCON / PROCEDURE REASON: Headache, new or worsening (Age >= 50y) * * * * Physician Interpretation * * * * EXAMINATION: MRA BRAIN WO IVCON CLINICAL HISTORY: Headache, new or worsening. TECHNIQUE: Routine noncontrast MRI brain protocol including diffusion and gradient echo images. Intracranial 3D ojfl-ft-lysqvk MRA with post-processing performed at the modality [...] territory infarct is partially included within the njqcw-in-efuc on the individual partitions. INTRACRANIAL MRA: Distal [...] or aneurysm. IMPRESSION: Patent intracranial arterial vasculature. Ship Purser: JARVIS Transcribe Date/Time: Dec 08 2024 10:06A Dictated by : SHANT SUÁREZ MD This examination was interpreted and the report reviewed and electronically signed by: SHANT SUÁREZ MD on Dec 08 2024 10:11AM EST [id number] Normal [facility] Magnesium SerPl-mCncon 12-08 Magnesium [Mass/Vol] 2.1 mg/dL Normal 1.7-2.3 [facility] Comment on above: Order Comment: Speci men Type: BLOOD SPECIMENOrdering Facility: [facility] Address: [address] [place] [address] Performed By: #### 2 4321-2, 07952-7 ####[address] LABORATORYCLIA [id number] [place] [id number] [facility] NUTRITIONon 12-08-2024 NUTRITION HNO ID: [id number] Author: PAULA MAXWELL RD Service: Nutrition Therapy [...] 2024 TIME: 11:20 AM Normal [facility] ALLIED HEALTHon 12-07-2024 ALLIED HEALTH HNO ID: [id number] Author: NELSON EDWARDS CT Service: Radiology Author [...] PATIENT PRESENTS WITH AN IMPLANTABLE OR ATTACHED BEDSPREAD CUTTER: No RADIOLOGY DEPARTMENT: CT; Exam(s) Completed: Brain PERIPHERAL IV DATA: Inpatient: see LDA documentation SIGNED BY: RICHARD Jean December 07, 2024 12:10 PM Normal [facility] Basic metabolic 2000 panelon 12-07-2024 Anion gap [Moles/Vol] 8 mmol/L Normal 8-15 [facility] Comment on above: Order Comment: Speci men Type: BLOOD SPECIMENOrdering Facility: [facility] Address: [address] [place] [address] Performed By: #### 2 4321-2, 39591-8 ####[address] LABORATORYCLIA [id number] [place] [address] [place] Calcium [Mass/Vol] 8.5 mg/dL Normal 8.5-10.2 [facility] Comment on above: Order Comment: Speci men Type: BLOOD SPECIMENOrdering Facility: [facility] Address: [address] [place] [address] Performed By: #### 2 4321-2, ####CON[facility] LABORATORYCLIA [id number] [place] [id number] [place] Chloride [Moles/Vol] 104 mmol/L Normal 98-107 [facility] Comment on above: Order Comment: Speci men Type: BLOOD SPECIMENOrdering Facility: [facility] Address: [address] [place] [address] Performed By: #### 2 4321-2, ####CON[facility] LABORATORYCLIA [id number] [place] [address] [place] CO2 [Moles/Vol] 29 mmol/L Normal 22-30 [facility] Comment on above: Order Comment: Speci men Type: BLOOD SPECIMENOrdering Facility: [facility] Address: [address] [place] [address] Performed By: #### 2 4321-2, ####CON[facility] LABORATORYCLIA [id number] [place] [address] [place] Creatinine [Mass/Vol] 0.63 mg/dL Normal 0.58-0.96 [facility] Comment on above: Order Comment: Speci men Type: BLOOD SPECIMENOrdering Facility: [facility] Address: [address] [place] [address] Performed By: #### 2 4321-2, ####CON[facility] LABORATORYCLIA [id number] [place] [id number] [facility] OF CED Creatinine and Glomerular filtration rate.predicted panel (S/P/Bld) 91 mL/min/1.73m??? Normal >=60 [facility] Comment on above: Order Comment: Speci men Type: BLOOD SPECIMENOrdering Facility: [facility] Address: [address] [place] [address] Result Comment: Mateo mated Glomerular Filtration Rate [...] actual GFR. Performed By: #### 2 432-, ####CON[facility] LABORATORYCLIA [id number] [place] [address] [place] Glucose [Mass/Vol] 92 mg/dL Normal 74-99 [facility] Comment on above: Order Comment: Yoav lujan Type: BLOOD SPECIMENOrdering Facility: [facility] Address: [address] [place] [id number] Result Comment: The [place] Diabetes Association (ADA) provides guidance for cutoff [...] Standards of Medical Care in Diabetes 2016, [place] [employer]. Diabetes Care. 2016.39(Suppl 1). Performed By: #### 2 43206-24, ####CON[facility] LABORATORYCLIA [id number] [place] [address] [place] Potassium [Moles/Vol] 4.0 mmol/L Normal 3.7-5.1 [facility] Comment on above: Order Comment: Yoav lujan Type: BLOOD SPECIMENOrdering Facility: [facility] Address: [address] [place] [address] Performed By: #### 2 43206-24, ####CON[facility] LABORATORYCLIA [id number] [place] [address] [place] Sodium [Moles/Vol] 141 mmol/L Normal 136-144 [facility] Comment on above: Order Comment: Speci men Type: BLOOD SPECIMENOrdering Facility: [facility] Address: [address] [place] [address] Performed By: #### 2 4321-2, 10347-5 ####CON[facility] LABORATORYCLIA [id number] [address] Urea nitrogen [Mass/Vol] 14 mg/dL Normal 7-21 [facility] Comment on above: Order Comment: Speci men Type: BLOOD SPECIMENOrdering Facility: [facility] Address: [address] [place] [address] Performed By: #### 2 4321-2, ####CON[facility] LABORATORYCLIA [id number] [address] CBC panel Auto (Bld)on 12-07 Erythrocyte distribution width (RBC) [Ratio] 13.9 % Normal 11.5-15.0 [facility] Comment on above: Order Comment: Speci men Type: BLOOD SPECIMENOrdering Facility: [facility] Address: [address] [place] [address] Performed By: #### 5 8410-2 ####CON[facility] LABORATORYCLIA [id number] [address] Hematocrit (Bld) [Volume fraction] 39.9 % Normal 36.0-46.0 [facility] Comment on above: Order Comment: Speci men Type: BLOOD SPECIMENOrdering Facility: [facility] Address: [address] [place] [address] Performed By: #### 5 8410-2 ####CON[facility] LABORATORYCLIA [id number] [address] Hemoglobin (Bld) [Mass/Vol] 13.0 g/dL Normal 11.5-15.5 [facility] Comment on above: Order Comment: Speci men Type: BLOOD SPECIMENOrdering Facility: [facility] Address: [address] [place] [address] Performed By: #### 5 8410-2 ####[facility] LABORATORYCLIA [id number] [place] [address] MCH (RBC) [Entitic mass] 31.0 pg Normal 26.0-34.0 [facility] Comment on above: Order Comment: Speci men Type: BLOOD SPECIMENOrdering Facility: [facility] Address: [address] [place] [address] Performed By: #### 5 8410-2 ####CON[facility] LABORATORYCLIA [id number] [address] MCHC (RBC) [Mass/Vol] 32.6 g/dL Normal 30.5-36.0 [facility] Comment on above: Order Comment: Speci men Type: BLOOD SPECIMENOrdering Facility: [facility] Address: [address] [place] [address] Performed By: #### 5 8410-2 ####CON[facility] LABORATORYCLIA [id number] [address] MCV (RBC) [Entitic vol] 95.0 fL Normal 80.0-100.0 [facility] Comment on above: Order Comment: Speci men Type: BLOOD SPECIMENOrdering Facility: [facility] Address: [address] [place] [address] Performed By: #### 5 8410-2 ####CON[facility] LABORATORYCLIA [id number] [address] Nucleated RBC (Bld) [#/Vol] 10*3/uL Normal <0.01 [facility] Comment on above: Order Comment: Speci men Type: BLOOD SPECIMENOrdering Facility: [facility] Address: [address] [place] [address] Performed By: #### 5 8410-2 ####CON[facility] LABORATORYCLIA [id number] [address] Platelet mean volume (Bld) [Entitic vol] 9.8 fL Normal 9.0-12.7 [facility] Comment on above: Order Comment: Speci men Type: BLOOD SPECIMENOrdering Facility: [facility] Address: [address] [place] [address] Performed By: #### 5 8410-2 ####CON[facility] LABORATORYCLIA [id number] [address] OF [place] Platelets (Bld) [#/Vol] 171 10*3/uL Normal 150-400 [facility] Comment on above: Order Comment: Speci men Type: BLOOD SPECIMENOrdering Facility: [facility] Address: [address] [place] [address] Performed By: #### 5 8410-2 ####[address] LABORATORYCLIA [id number] [place] [address] [place] RBC (Bld) [#/Vol] 4.20 10*6/uL Normal 3.90-5.20 [facility] Comment on above: Order Comment: Speci men Type: BLOOD SPECIMENOrdering Facility: [facility] Address: [address] [place] [address] Performed By: #### 5 8410-2 ####[address] LABORATORYCLIA [id number] [address] OF [place] WBC (Bld) [#/Vol] 10.27 10*3/uL Normal 3.70-11.00 [facility] Comment on above: Order Comment: Speci men Type: BLOOD SPECIMENOrdering Facility: [facility] Address: [address] [place] [address] Performed By: #### 5 8410-2 ####[address] LABORATORYCLIA [id number] [place] [id number] [facility] CONSULTon 12-07-2024 CONSULT HNO ID: [id number] Author: KELTON TAYLOR DO Service: General Surgery [...] (more content not included)... Normal [facility] CT BRAIN WO IVCONon 12-08-19 CT BRAIN WO IVCON * * *Final Report* * * DATE OF EXAM: Dec 07 2024 12:11PM [facility] 0504 - CT BRAIN WO IVCON [...] change. No intracranial mass effect or hemorrhage. Ship Purser: JARVIS Transcribe Date/Time: Dec 07 2024 12:40P Dictated by : SADAF KAUR MD This examination was interpreted and the report reviewed and electronically signed by: SADAF KAUR MD on Dec 07 2024 12:43PM EST [id number] Normal [facility] ESR Westergren method (Bld) [Velocity]on 12-07-2024 ESR (Bld) [Velocity] 45 mm/h High 0-20 [facility] Comment on above: Order Comment: Speci men Type: BLOOD SPECIMENOrdering Facility: [facility] Address: [address] [place] [address] Performed By: #### 4 302-7 ####[facility] LABCLIA [id number] [facility]AMPUSDorian [place] [address] [place] Magnesium SerPl-mCncon 12-07 Magnesium [Mass/Vol] 2.1 mg/dL Normal 1.7-2.3 [facility] Comment on above: Order Comment: Speci men Type: BLOOD SPECIMENOrdering Facility: [facility] Address: [address] [place] [address] Performed By: #### 2 4321-2, 93233-7 ####[address] LABORATORYCLIA [id number] [place], [place] [address] [place] [address] [place] THERAPY NTon 12-07-2024 THERAPY NT HNO ID: [id number] Author: LOBITO CAVAZOS PT Service: Physical Therapy Author Type: Physical Therapist Type: Therapy (PT/OT/Speech/Resp) Filed: 12/07/2024 11:41 Note Text: Summary: PT treatment/lprecert Physical Therapy Treatment Summary SERVICE DATE: 12/07/2024 SERVICE TIME: 1042 to 1117 ROOM: [id number] PT 6 Clicks Score: 13 DISCHARGE RECOMMENDATIONS [...] toilet. Spouse assists with toilet transfer at [facility], spouse completes hygiene, some incontinent epsidoes Pt spends all day in lift chair when not at daycare and spouse helps her out. Spouse report (more content not included)... [facility] THERAPY NT HNO ID: [id number] Author: TERRY CHERRY OT/West Service: Occupational Therapy Author Type: Occupational Therapist Type: Therapy (PT/OT/Speech/Resp) Filed: 12/07/2024 09:53 Note Text: Summary: OT Treatment Occupational Therapy Treatment Summary SERVICE DATE: 12/07/2024 SERVICE TIME: 924 to 942 ROOM: [id number] OT 6 Clicks Score: 9 DISCHARGE RECOMMENDATIONS [...] toilet. Spouse assists with toilet transfer at [facility], spouse completes hygiene, some incontinent epsidoes [...] Cognitive Functions and Awareness TREATMENT INTERVENTIONS Self Snf Manag (more content not included)... Normal [facility] Basic metabolic 2000 panelon 12-06-2024 Anion gap [Moles/Vol] 10 mmol/L Normal 8-15 [facility] Comment on above: Order Comment: Speci men Type: BLOOD SPECIMENOrdering Facility: [facility] Address: [address] [place] [id number] Performed By: #### 2 4321-2, ####[facility] LABORATORYCLIA [id number] [place] [address] [place] Calcium [Mass/Vol] 8.7 mg/dL Normal 8.5-10.2 [facility] Comment on above: Order Comment: Speci men Type: BLOOD SPECIMENOrdering Facility: [facility] Address: [address] [place] [address] Performed By: #### 2 4321-2, ####CON[facility] LABORATORYCLIA [id number] [place] [address] [place] Chloride [Moles/Vol] 103 mmol/L Normal 98-107 [facility] Comment on above: Order Comment: Speci men Type: BLOOD SPECIMENOrdering Facility: [facility] Address: [address] [place] [address] Performed By: #### 2 4320-2, ####CON[facility] LABORATORYCLIA [id number] [place] [address] [place] CO2 [Moles/Vol] 26 mmol/L Normal 22-30 [facility] Comment on above: Order Comment: Speci men Type: BLOOD SPECIMENOrdering Facility: [facility] Address: [address] [place] [id number] Performed By: #### 2 432-2, ####CON[facility] LABORATORYCLIA [id number] [place] [address] [place] Creatinine [Mass/Vol] 0.60 mg/dL Normal 0.58-0.96 [facility] Comment on above: Order Comment: Speci men Type: BLOOD SPECIMENOrdering Facility: [facility] Address: [address] [place] [address] Performed By: #### 2 4320-2, ####[facility] LABORATORYCLIA [id number] [place] [address] [facility] OF CED Creatinine and Glomerular filtration rate.predicted panel (S/P/Bld) 92 mL/min/1.73m??? Normal >=60 [facility] Comment on above: Order Comment: Yoav lujan Type: BLOOD SPECIMENOrdering Facility: [facility] Address: [address] [place] [address] Result Comment: Mateo mated Glomerular Filtration Rate [...] Performed By: #### 2 4321-2, ####[facility] LABORATORYCLIA [id number] [place] [id number] [place] Glucose [Mass/Vol] 103 mg/dL High 74-99 [facility] Comment on above: Order Comment: Yoav lujan Type: BLOOD SPECIMENOrdering Facility: [facility] Address: [address] [place] [address] [place] [address] Result Comment: The [place] Diabetes [employer] (ADA) provides guidance for cutoff [...] Standards of Medical Care in Diabetes 2016, [place] [employer]. Diabetes Care. 2016.39(Suppl 1). Performed By: #### 2 4321-2, ####[facility] LABORATORYCLIA [id number] [place] [address] [place] Potassium [Moles/Vol] 4.0 mmol/L Normal 3.7-5.1 [facility] Comment on above: Order Comment: Yoav lujan Type: BLOOD SPECIMENOrdering Facility: [facility] Address: [address] [place] [address] Performed By: #### 2 4321-2, ####[facility] LABORATORYCLIA [id number] [place] [address] [place] Sodium [Moles/Vol] 139 mmol/L Normal 136-144 [facility] Comment on above: Order Comment: Speci men Type: BLOOD SPECIMENOrdering Facility: [facility] Address: [address] [place] [address] Performed By: #### 2 4321-2, ####[facility] LABORATORYCLIA [id number] [place] [address] [place] Urea nitrogen [Mass/Vol] 13 mg/dL Normal 7-21 [facility] Comment on above: Order Comment: Speci men Type: BLOOD SPECIMENOrdering Facility: [facility] Address: [address] [place] [address] Performed By: #### 2 4321-2, ####[facility] LABORATORYCLIA [id number] [place] [address] [place] CBC panel Auto (Bld)on 12-06 Erythrocyte distribution width (RBC) [Ratio] 13.8 % Normal 11.5-15.0 [facility] Comment on above: Order Comment: Speci men Type: BLOOD SPECIMENOrdering Facility: [facility] Address: [address] [place] [address] Performed By: #### 5 8410-2 ####[facility] LABORATORYCLIA [id number] [address] [place] Hematocrit (Bld) [Volume fraction] 40.6 % Normal 36.0-46.0 [facility] Comment on above: Order Comment: Speci men Type: BLOOD SPECIMENOrdering Facility: [facility] Address: [address] [place] [address] Performed By: #### 5 8410-2 ####[facility] LABORATORYCLIA [id number] [place] [address] [place] Hemoglobin (Bld) [Mass/Vol] 13.5 g/dL Normal 11.5-15.5 [facility] Comment on above: Order Comment: Speci men Type: BLOOD SPECIMENOrdering Facility: [facility] Address: [address] [place] [address] Performed By: #### 5 8410-2 ####[facility] LABORATORYCLIA [id number] [address] MCH (RBC) [Entitic mass] 31.1 pg Normal 26.0-34.0 [facility] Comment on above: Order Comment: Speci men Type: BLOOD SPECIMENOrdering Facility: [facility] Address: [address] [place] [address] Performed By: #### 5 8410-2 ####[facility] LABORATORYCLIA [id number] [address] MCHC (RBC) [Mass/Vol] 33.3 g/dL Normal 30.5-36.0 [facility] Comment on above: Order Comment: Speci men Type: BLOOD SPECIMENOrdering Facility: [facility] Address: [address] [place] [address] Performed By: #### 5 8410-2 ####[facility] LABORATORYCLIA [id number] [address] MCV (RBC) [Entitic vol] 93.5 fL Normal 80.0-100.0 [facility] Comment on above: Order Comment: Speci men Type: BLOOD SPECIMENOrdering Facility: [facility] Address: [address] [place] [address] Performed By: #### 5 8410-2 ####[facility] LABORATORYCLIA [id number] [address] Nucleated RBC (Bld) [#/Vol] 10*3/uL Normal <0.01 [facility] Comment on above: Order Comment: Speci men Type: BLOOD SPECIMENOrdering Facility: [facility] Address: [address] [place] [address] Performed By: #### 5 8410-2 ####[facility] LABORATORYCLIA [id number] [address] Platelet mean volume (Bld) [Entitic vol] 9.9 fL Normal 9.0-12.7 [facility] Comment on above: Order Comment: Speci men Type: BLOOD SPECIMENOrdering Facility: [facility] Address: [address] [place] [address] Performed By: #### 5 8410-2 ####[facility] LABORATORYCLIA [id number] [address] OF CED Platelets (Bld) [#/Vol] 183 10*3/uL Normal 150-400 [facility] Comment on above: Order Comment: Speci men Type: BLOOD SPECIMENOrdering Facility: [facility] Address: [address] [place] [address] Performed By: #### 5 8410-2 ####[facility] LABORATORYCLIA [id number] [place] [address] [place] RBC (Bld) [#/Vol] 4.34 10*6/uL Normal 3.90-5.20 [facility] Comment on above: Order Comment: Speci men Type: BLOOD SPECIMENOrdering Facility: [facility] Address: [address] [place] [address] Performed By: #### 5 8410-2 ####CONNER LABORATORYCLIA [id number] [place] [address] [place] WBC (Bld) [#/Vol] 11.94 10*3/uL High 3.70-11.00 [facility] Comment on above: Order Comment: Speci men Type: BLOOD SPECIMENOrdering Facility: [facility] Address: [address] [place] [address] Performed By: #### 5 8410-2 ####CON[facility] LABORATORYCLIA [id number] [address] OF [place]ED Magnesium SerPl-mCncon 12-06 Magnesium [Mass/Vol] 2.0 mg/dL Normal 1.7-2.3 [facility] Comment on above: Order Comment: Speci men Type: BLOOD SPECIMENOrdering Facility: [facility] Address: [address] [place] [address] Performed By: #### 2 4321-2, 83273-5 ####CONNER LABORATORYCLIA [id number] [place] [address] [place] THERAPY NTon 12-06-2024 THERAPY NT HNO ID: [id number] Author: TERRY CHERRY OT/L Service: Occupational Therapy Author Type: Occupational Therapist Type: Therapy (PT/OT/Speech/Resp) Filed: 12/06/2024 13:57 Note Text: OCCUPATIONAL THERAPY MISSED VISIT SERVICE DATE: 12/06/2024 SERVICE TIME: 1355 ROOM: [place] [address] Patient not seen due to Test / Procedure. EEG being complete at pt's bedside. Will re-attempt as schedule allows. CM notified as this pt has precert needs. SIGNATURE: CARY Bhardwaj PATIENT NAME: Madiha Perales DATE: December 06, 2024 TIME: 1:57 PM [facility] THERAPY NT HNO ID: [id number] Author: KATIE MACIEL CCC-SEALER OPERATOR Service: Speech/Swallow Author Type: Speech Language Pathologist Type: Therapy (PT/OT/Speech/Resp) Filed: 12/06/2024 12:41 Note Text: Summary: Dysphagia Therapy Speech Therapy Treatment SERVICE DATE: 12/06/2024 SERVICE TIME: 1209 to 1239 ROOM: [place] [address] IMPRESSION Swallow Deficits Identified / Suspected: Oral [...] Dysphagia, oral phase TREATMENT INTERVENTIONS Dysphagia Therapy (24543) Skilled Treatment Time (minutes): 30 TRAINING AND [...] Dysphagia Management, Caregiver Education SIGNATURE: Katie Martin [facility]-SEALER OPERATOR PATIENT NAME: P (more content not included)... Normal [facility] Basic metabolic 2000 panelon 12-05-2024 Anion gap [Moles/Vol] 10 mmol/L Normal -15 [facility] Comment on above: Order Comment: Yoav lujan Type: BLOOD SPECIMENOrdering Facility: [facility] Address: [address] [place] [address] Performed By: #### 2 4320-07, ####[address] LABORATORYCLIA [id number] [place] [address] [place] Calcium [Mass/Vol] 8.6 mg/dL Normal 8.5-10.2 [facility] Comment on above: Order Comment: Yoav lujan Type: BLOOD SPECIMENOrdering Facility: [facility] Address: [address] [place] [address] Performed By: #### 2 432-2, ####[address] LABORATORYCLIA [id number] [place] [id number] [place] Chloride [Moles/Vol] 102 mmol/L Normal 98-107 [facility] Comment on above: Order Comment: Yoav lujan Type: BLOOD SPECIMENOrdering Facility: [facility] Address: [address] [place] [address] Performed By: #### 2 4322, ####CONNER LABORATORYCLIA [id number] [place] [address] [place] CO2 [Moles/Vol] 27 mmol/L Normal 22-30 [facility] Comment on above: Order Comment: Yoav lujan Type: BLOOD SPECIMENOrdering Facility: [facility] Address: [address] [place] [address] Performed By: #### 2 2, ####CONNER LABORATORYCLIA [id number] [place] [address] [place] Creatinine [Mass/Vol] 0.58 mg/dL Normal 0.58-0.96 [facility] Comment on above: Order Comment: Yoav lujan Type: BLOOD SPECIMENOrdering Facility: [facility] Address: [address] [place] [address] Performed By: #### 2 4320-07, ####CONNER LABORATORYCLIA [id number] [address] Creatinine and Glomerular filtration rate.predicted panel (S/P/Bld) 93 mL/min/1.73m??? Normal >=60 [facility] Comment on above: Order Comment: Yoav lujan Type: BLOOD SPECIMENOrdering Facility: [facility] Address: [address] [place] [address] Result Comment: Mateo mated Glomerular Filtration Rate [...] reflect actual GFR. Performed By: #### 2 4322, ####CONNER LABORATORYCLIA [id number] [place] [id number] [place] Glucose [Mass/Vol] 100 mg/dL High 74-99 [facility] Comment on above: Order Comment: Yoav lujan Type: BLOOD SPECIMENOrdering Facility: [facility] Address: [address] [place] [address] Result Comment: The [place] Diabetes Association (ADA) provides guidance for cutoff [...] Standards of Medical Care in Diabetes 2016, [place] [employer]. Diabetes Care. 2016.39(Suppl 1). Performed By: #### 2 4320-07, ####CON[facility] LABORATORYCLIA [id number] [place] [address] [place] Potassium [Moles/Vol] 4.2 mmol/L Normal 3.7-5.1 [facility] Comment on above: Order Comment: Specjann lujan Type: BLOOD SPECIMENOrdering Facility: [facility] Address: [address] [place] [address] Performed By: #### 2 4320-07, ####CONNER LABORATORYCLIA [id number] [address] STATES OF [facility] Sodium [Moles/Vol] 139 mmol/L Normal 136-144 [facility] Comment on above: Order Comment: Yoav lujan Type: BLOOD SPECIMENOrdering Facility: [facility] Address: [address] [place] [address] Performed By: #### 2 4320-07, ####CON[facility] LABORATORYCLIA [id number] [place] [address] [place] Urea nitrogen [Mass/Vol] 15 mg/dL Normal 7-21 [facility] Comment on above: Order Comment: Yoav lujan Type: BLOOD SPECIMENOrdering Facility: [facility] Address: [address] [place] [address] Performed By: #### 2 4320-07, ####CON[facility] LABORATORYCLIA [id number] [place] [address] [place] CBC W Auto Differential pane l (Bld)on 12-05-2024 Basophils (Bld) [#/Vol] 0.04 10*3/uL Normal <0.11 [facility] Comment on above: Order Comment: Speci men Type: BLOOD SPECIMENOrdering Facility: [facility] Address: [address] [place] [address] Performed By: #### 5 7021-8 ####CON[facility] LABORATORYCLIA [id number] [address] STATES OF CED Basophils/100 WBC (Bld) 0.4 % Normal [facility] Comment on above: Order Comment: Speci men Type: BLOOD SPECIMENOrdering Facility: [facility] Address: [address] [place] [address] Performed By: #### 5 7021-8 ####CON[facility] LABORATORYCLIA [id number] [address] Differential cell count method Nom (Bld) Auto Normal [facility] Comment on above: Order Comment: Speci men Type: BLOOD SPECIMENOrdering Facility: [facility] Address: [address] [place] [address] Performed By: #### 5 7021-8 ####CON[facility] LABORATORYCLIA [id number] [address] STATES OF [place]ED Eosinophils (Bld) [#/Vol] 0.13 10*3/uL Normal <0.46 [facility] Comment on above: Order Comment: Speci men Type: BLOOD SPECIMENOrdering Facility: [facility] Address: [address] [place] [address] Performed By: #### 5 7021-8 ####CON[facility] LABORATORYCLIA [id number] [address] Eosinophils/100 WBC (Bld) 1.3 % Normal [facility] Comment on above: Order Comment: Speci men Type: BLOOD SPECIMENOrdering Facility: [facility] Address: [address] [place] [address] Performed By: #### 5 7021-8 ####CON[facility] LABORATORYCLIA [id number] [place] [address] [place] Erythrocyte distribution width (RBC) [Ratio] 13.9 % Normal 11.5-15.0 [facility] Comment on above: Order Comment: Speci men Type: BLOOD SPECIMENOrdering Facility: [facility] Address: [address] [place] [address] Performed By: #### 5 7021-8 ####CON[facility] LABORATORYCLIA [id number] [place] [address] [place] Hematocrit (Bld) [Volume fraction] 41.5 % Normal 36.0-46.0 [facility] Comment on above: Order Comment: Speci men Type: BLOOD SPECIMENOrdering Facility: [facility] Address: [address] [place] [address] Performed By: #### 5 7021-8 ####CON[facility] LABORATORYCLIA [id number] [place] [address] [place] Hemoglobin (Bld) [Mass/Vol] 13.5 g/dL Normal 11.5-15.5 [facility] Comment on above: Order Comment: Speci men Type: BLOOD SPECIMENOrdering Facility: [facility] Address: [address] [place] [address] Performed By: #### 5 7021-8 ####CON[facility] LABORATORYCLIA [id number] [place] [address] [place] Immature granulocytes (Bld) [#/Vol] 0.03 10*3/uL Normal <0.10 [facility] Comment on above: Order Comment: Speci men Type: BLOOD SPECIMENOrdering Facility: [facility] Address: [address] [place] [address] Performed By: #### 5 7021-8 ####CON[facility] LABORATORYCLIA [id number] [place] [address] [place] Immature granulocytes/100 WBC (Bld) 0.3 % Normal [facility] Comment on above: Order Comment: Speci men Type: BLOOD SPECIMENOrdering Facility: [facility] Address: [address] [place] [address] Performed By: #### 5 7021-8 ####CON[facility] LABORATORYCLIA [id number] [address] Lymphocytes (Bld) [#/Vol] 0.96 10*3/uL Low 1.00-4.00 [facility] Comment on above: Order Comment: Speci men Type: BLOOD SPECIMENOrdering Facility: [facility] Address: [address] [place] [address] Performed By: #### 5 7021-8 ####[facility] LABORATORYCLIA [id number] [address] Lymphocytes/100 WBC (Bld) 9.6 % Normal [facility] Comment on above: Order Comment: Speci men Type: BLOOD SPECIMENOrdering Facility: [facility] Address: [address] [place] [address] Performed By: #### 5 7021-8 ####CON[facility] LABORATORYCLIA [id number] [address] MCH (RBC) [Entitic mass] 30.7 pg Normal 26.0-34.0 [facility] Comment on above: Order Comment: Speci men Type: BLOOD SPECIMENOrdering Facility: [facility] Address: [address] [place] [address] Performed By: #### 5 7021-8 ####CON[facility] LABORATORYCLIA [id number] [address] MCHC (RBC) [Mass/Vol] 32.5 g/dL Normal 30.5-36.0 [facility] Comment on above: Order Comment: Speci men Type: BLOOD SPECIMENOrdering Facility: [facility] Address: [address] [place] [address] Performed By: #### 5 7021-8 ####CON[facility] LABORATORYCLIA [id number] [address] MCV (RBC) [Entitic vol] 94.3 fL Normal 80.0-100.0 [facility] Comment on above: Order Comment: Speci men Type: BLOOD SPECIMENOrdering Facility: [facility] Address: [address] [place] [address] Performed By: #### 5 7021-8 ####CON[facility] LABORATORYCLIA [id number] [place] [address] [place] Monocytes (Bld) [#/Vol] 0.92 10*3/uL High <0.87 [facility] Comment on above: Order Comment: Speci men Type: BLOOD SPECIMENOrdering Facility: [facility] Address: [address] [place] [address] Performed By: #### 5 7021-8 ####CON[facility] LABORATORYCLIA [id number] [place] [address] [place] Monocytes/100 WBC (Bld) 9.2 % Normal [facility] Comment on above: Order Comment: Speci men Type: BLOOD SPECIMENOrdering Facility: [facility] Address: [address] [place] [address] Performed By: #### 5 7021-8 ####CON[facility] LABORATORYCLIA [id number] [place] [address] [place] Neutrophils (Bld) [#/Vol] 7.94 10*3/uL High 1.45-7.50 [facility] Comment on above: Order Comment: Speci men Type: BLOOD SPECIMENOrdering Facility: [facility] Address: [address] [place] [address] Performed By: #### 5 7021-8 ####CON[facility] LABORATORYCLIA [id number] [address] STATES OF [place] Neutrophils/100 WBC (Bld) 79.2 % Normal [facility] Comment on above: Order Comment: Speci men Type: BLOOD SPECIMENOrdering Facility: [facility] Address: [address] [place] [address] Performed By: #### 5 7021-8 ####CONNER LABORATORYCLIA [id number] [place] [address] [place] Nucleated RBC (Bld) [#/Vol] 10*3/uL Normal <0.01 [facility] Comment on above: Order Comment: Speci men Type: BLOOD SPECIMENOrdering Facility: [facility] Address: [address] [place] [address] Performed By: #### 5 7021-8 ####CONNER LABORATORYCLIA [id number] [place] [address] [place] Nucleated RBC/100 WBC (Bld) [Ratio] 0.0 /100 WBC Normal [facility] Comment on above: Order Comment: Speci men Type: BLOOD SPECIMENOrdering Facility: [facility] Address: [address] [place] [address] Performed By: #### 5 7021-8 ####CON[facility] LABORATORYCLIA [id number] [place] [address] [place] Platelet mean volume (Bld) [Entitic vol] 9.8 fL Normal 9.0-12.7 [facility] Comment on above: Order Comment: Speci men Type: BLOOD SPECIMENOrdering Facility: [facility] Address: [address] [place] [address] Performed By: #### 5 7021-8 ####CON[facility] LABORATORYCLIA [id number] [address] OF [place] Platelets (Bld) [#/Vol] 182 10*3/uL Normal 150-400 [facility] Comment on above: Order Comment: Speci men Type: BLOOD SPECIMENOrdering Facility: [facility] Address: [address] [place] [address] Performed By: #### 5 7021-8 ####CON[facility] LABORATORYCLIA [id number] [address] OF [place] RBC (Bld) [#/Vol] 4.40 10*6/uL Normal 3.90-5.20 [facility] Comment on above: Order Comment: Speci men Type: BLOOD SPECIMENOrdering Facility: [facility] Address: [address] [place] [address] Performed By: #### 5 7021-8 ####[facility] LABORATORYCLIA [id number] [address] OF [place] WBC (Bld) [#/Vol] 10.02 10*3/uL Normal 3.70-11.00 [facility] Comment on above: Order Comment: Speci men Type: BLOOD SPECIMENOrdering Facility: [facility] Address: [address] [place] [address] Performed By: #### 5 7021-8 ####UBALDO LABORATORYIA [id number] [place] [address] [place] CONSULT PROGon 12-05-2024 CONSULT PROG HNO ID: [id number] Author: RACHEAL DE LA ROSA MD Service: Neurology General Author Type: Physician Type: Consult Progress Note Filed: 12/05/2024 08:45 Note Text: TELENEUROLOGY CONSULT PROGRESS NOTE Patient seen using [facility]. Recommendations are placed in the chart. Please review. For questions after hours, when teleneurologist is not available, for VISTA: Please Page [phone] for the [facility] from noon to 8am [...] 8:26 AM PAGER/CONTACT #: Normal [facility] Magnesium SerPl-mCncon 12-05 Magnesium [Mass/Vol] 2.1 mg/dL Normal 1.7-2.3 [facility] Comment on above: Order Comment: Specjann lujan Type: BLOOD SPECIMENOrdering Facility: [facility] Address: [address] [place] [id number] Performed By: #### 2 4321-2, 87676-3 ####[address] LABORATORYCLIA [id number] [address] OF [facility] ARTERIAL BLOOD GASESon 12-04 Carboxyhemoglobin (BldA) [Mass fraction] 1.4 % Normal 0.0-2.0 [facility] Comment on above: Order Comment: Yoav lujan Type: ARTERIAL BLOOD SPECIMENOrdering Facility: [facility] Address: [address] [place] [address] Result Comment: Carb oxyhemoglobin Reference Range for Smokers: 2.0-8.0% Performed By: #### A LLBG ####[address] RESPIRATORYCLIA [id number] [facility] RES[facility]IRATORY [id number] [place] [address] CO2 (Bld) [Partial pressure] 46 mm Hg Normal 36-46 [facility] Comment on above: Order Comment: Speci men Type: ARTERIAL BLOOD SPECIMENOrdering Facility: [facility] Address: [address] [place] [address] Performed By: #### A LLBG ####[address] RESPIRATORYIA [id number] HOSPITAL RESPIRATORY [id number] [address] [address] CO2 adjusted to patient's actual temperature (Bld) [Partial pressure] Normal [facility] Comment on above: Order Comment: Speci men Type: ARTERIAL BLOOD SPECIMENOrdering Facility: [facility] Address: [address] [place] [id number] Performed By: #### A LLBG ####[address] RESPIRATORYWH[facility] [id number] HOSPITAL RESPIRATORY [id number] [address] [address] HCO3 (Bld) [Moles/Vol] 31 mmol/L High 22-26 [facility] Comment on above: Order Comment: Speci men Type: ARTERIAL BLOOD SPECIMENOrdering Facility: [facility] Address: [address] [place] [address] Performed By: #### A LLBG ####[address] RESPIRATORYWH[facility] [id number] [facility]OSP[facility] RESPIRATORY [id number] [address] [address] Hemoglobin (Bld) [Mass/Vol] 14.6 g/dL Normal 11.5-15.5 [facility] Comment on above: Order Comment: Speci men Type: ARTERIAL BLOOD SPECIMENOrdering Facility: [facility] Address: [address] [place] [id number] Performed By: #### A LLBG ####[address] RESPIRATORYIA [id number] HOSP[facility] RESPIRATORY [id number] [address] [address] Lactate [Moles/Vol] 0.9 mmol/L Normal 0.5-2.2 [facility] Comment on above: Order Comment: Speci men Type: ARTERIAL BLOOD SPECIMENOrdering Facility: [facility] Address: [address] [place] [id number] Performed By: #### A LLBG ####[address] RESPIRATORYIA [id number] HOSPITAL RESPIRATORY [id number] [address] [address] LITERS 2 Liters/min Normal [facility] Comment on above: Order Comment: Speci men Type: ARTERIAL BLOOD SPECIMENOrdering Facility: [facility] Address: [address] [place] [address] Performed By: #### A LLBG ####[address] RESPIRATORYCLIA [id number] [facility]OSP[facility] RESPIRATORY [id number] [address] [address] Methemoglobin (Bld) [Mass fraction] % Normal 0.0-1.5 [facility] Comment on above: Order Comment: Speci men Type: ARTERIAL BLOOD SPECIMENOrdering Facility: [facility] Address: [address] [place] [address] Performed By: #### A LLBG ####[address] RESPIRATORYIA [id number] HOSPITAL RESPIRATORY [id number] [address] [address] O2 THERAPY NC = Nasal Cannula Normal [facility] Comment on above: Order Comment: Speci men Type: ARTERIAL BLOOD SPECIMENOrdering Facility: [facility] Address: [address] [place] [address] Performed By: #### A LLBG ####[address] RESPIRATORYCLIA [id number] HOSP[facility] RESPIRATORY [id number] [address] [address] Oxygen (Bld) [Partial pressure] 70 mm Hg Low 85-95 [facility] Comment on above: Order Comment: Speci men Type: ARTERIAL BLOOD SPECIMENOrdering Facility: [facility] Address: [address] [place] [address] Performed By: #### A LLBG ####[address] RESPIRATORYCLIA [id number] [facility]OSP[facility] RESPIRATORY [id number] [address] [address] Oxygen adjusted to patient's actual temperature (Bld) [Partial pressure] Normal [facility] Comment on above: Order Comment: Speci men Type: ARTERIAL BLOOD SPECIMENOrdering Facility: [facility] Address: [address] [place] [address] Performed By: #### A LLBG ####[facility] [id number] [facility] RESPIRATORY [id number] [address] [address] Oxyhemoglobin (BldA) [Mass fraction] 94 % Low 95-98 [facility] Comment on above: Order Comment: Speci men Type: ARTERIAL BLOOD SPECIMENOrdering Facility: [facility] Address: [address] [place] [address] Performed By: #### A LLBG ####[address] RESPIRATORYWHITE RIVER [facility] [id number] [facility]OSP[facility] RESPIRATORY [id number] [address] pH (Bld) 7.43 [pH] Normal 7.35-7.45 [facility] Comment on above: Order Comment: Speci men Type: ARTERIAL BLOOD SPECIMENOrdering Facility: [facility] Address: [address] [place] [address] Performed By: #### A LLBG ####[place] [id number] [place] [address] RESPIRATORY [id number] [place] [address] pH adjusted to patient's actual temperature (Bld) Normal [facility] Comment on above: Order Comment: Speci men Type: ARTERIAL BLOOD SPECIMENOrdering Facility: [facility] Address: [address] [place] [address] Performed By: #### A LLBG ####[facility] [id number] [facility]OS[facility] RESPIRATORY [id number] [address] [address] Potassium [Moles/Vol] 3.9 mmol/L Normal 3.5-5.0 [facility] Comment on above: Order Comment: Speci men Type: ARTERIAL BLOOD SPECIMENOrdering Facility: [facility] Address: [address] [place] [address] Performed By: #### A LLBG ####[facility] [id number] HOSPITAL RESPIRATORY [id number] [address] [address] Ammonia Plas-sCncon 12-05-19 25 Ammonia (P) [Moles/Vol] 29 umol/L Normal 11-51 [facility] Comment on above: Order Comment: Speci men Type: BLOOD SPECIMENOrdering Facility: [facility] Address: [address] [place] [id number] Performed By: #### 1 6362-6 ####CON[facility] LABORATORYCLIA [id number] [place] [address] [facility] OF CED CONSULTon 12-04-2024 CONSULT HNO ID: [id number] Author: RACHEAL DE LA ROSA MD Service: [...] pm [place]: 1 pm to 5 pm [facility]: 3 pm to 5 pm Statutory holidays do not have teleneuro coverage. [place] : During Off hours for Teleneurology please page (not call) [place] [facility] [phone] concert pianist for concerns. [place]: During Off hours for Teleneurology please page (not call) [place] [facility] [phone] concert pianist for concerns. [facility]: There is no off-hours coverage for Teleneurology. [...] for her cancer. Her neurologist is at [facility]. She is on sinemet 1.5 tabs [...] neoplasm of upper-outer (more content not included)... [facility] THERAPY [facility] 12-04-2024 THERAPY HN ID: [id number] Author: ALAN IBANEZ OTR/West Service: Occupational Therapy Author Type: Occupational Therapist Type: Therapy (PT/OT/Speech/Resp) Filed: 12/04/2024 14:53 Note Text: Summary: OT Eval Occupational Therapy Evaluation Summary SERVICE DATE: 12/04/2024 SERVICE TIME: 1338 to 1428 ROOM: [place] [address] OT 6 Clicks Score: 9 DISCHARGE RECOMMENDATIONS [...] toilet. Spouse assists with toilet transfer at [facility], spouse completes hygiene, some incontinent epsidoes [...] Evaluation, Therapeutic (more content not included)... Normal [facility] THERAPY NT HNO ID: [id number] Author: MIGEL HYATT, TAVO-SEALER OPERATOR Service: Speech/Swallow Author Type: Speech Language Pathologist Type: Therapy (PT/OT/Speech/Resp) Filed: 12/04/2024 12:43 Note Text: Speech Therapy Clinical Swallow Evaluation, Speech Evaluation SERVICE DATE: 12/04/2024 SERVICE TIME: 1158 to 1239 ROOM: [place] [address] IMPRESSION Functional communication without limitations in: Speech, [...] doing ok patient's daughter and state when SEALER OPERATOR woke pt up and spoke with her for a minute that it was the most responsive pt had been since being admitted to the hospital THERAPY DIAGNOSIS Cognitive-Communicati on Deficits, Dysphagia, oral phase TREATMENT INTERVENTIONS Speech Language Eval (98306), Clinical Swallow Evaluation (01247) Skilled Treatment Time (minutes): 41 TRAINING AND [...] chews when nothing is in her mouth. SEALER OPERATOR recommends follow up for cognition and assurance of tolerance of regular diet. Compensatory Strategies Utilized During Assessment: 1:1 Supervision, Alert (patient should be fully alert for P.O. intake), Alternate bites and sips, Small Bite/Sip Suring Swallow Protocol: Pass Suspected Esophageal Deficits: none suspected GOALS COGNITION: Patient will demonstrate knowledge of (more content not included)... Normal [facility] THERAPY NT HNO ID: [id number] Author: ALAN IBANEZ OTR/West Service: Occupational Therapy Author Type: Occupational Therapist Type: Therapy (PT/OT/Speech/Resp) Filed: 12/04/2024 10:25 Note Text: Summary: OT MV OCCUPATIONAL THERAPY MISSED VISIT SERVICE DATE: 12/04/2024 SERVICE TIME: 1024 ROOM: [id number] Patient not seen due to Patient Not Available. Neuro at bedside. Will reattempt as schedule permits. SIGNATURE: VIVIENNE Jiménez/West PATIENT NAME: Madiha Perales DATE: December 04, 2024 TIME: 10:24 AM [facility] THERAPY NT HNO ID: [id number] Author: GAYE PACHECO PT Service: Physical Therapy Author Type: Physical Therapist Type: Therapy (PT/OT/Speech/Resp) Filed: 12/04/2024 09:20 Note Text: Summary: PT Evaluation Physical Therapy Evaluation Summary SERVICE DATE: 12/04/2024 SERVICE TIME: 836 to 905 ROOM: [id number] PT 6 Clicks Score: 8 DISCHARGE RECOMMENDATIONS [...] (more content not included)... Normal [facility] TOXICOLOGY SCREEN, ROUTINE U RINEon 12-04-2024 Amphetamines Confirm (U) [Mass/Vol] Negative Normal Negative [facility] Comment on above: Order Comment: Speci men Type: URINE SPECIMENOrdering Facility: [facility] Address: [address] [place] [address] Result Comment: Cuto ff threshold at 1000 ng/mL. Performed By: #### U TOX2 ####[facility] LABORATORYCLIA [id number] [place] [address] [place] BARBITURATES, URINE Negative Normal Negative [facility] Comment on above: Order Comment: Speci men Type: URINE SPECIMENOrdering Facility: [facility] Address: [address] [place] [address] Result Comment: Cuto ff threshold at 200 ng/mL. Performed By: #### U TOX2 ####[facility] LABORATORYCLIA [id number] [place] [address] [place] BENZODIAZEPINES, UR Negative Normal Negative [facility] Comment on above: Order Comment: Speci men Type: URINE SPECIMENOrdering Facility: [facility] Address: [address] [place] [address] Result Comment: Cuto ff threshold at 200 ng/mL. Performed By: #### U TOX2 ####[facility] LABORATORYCLIA [id number] [place] [address] [place] Cannabinoids Screen Ql (U) Negative Normal Negative [facility] Comment on above: Order Comment: Speci men Type: URINE SPECIMENOrdering Facility: [facility] Address: [address] [place] [address] Result Comment: Cuto ff threshold at 50 ng/mL. Performed By: #### U TOX2 ####[facility] LABORATORYCLIA [id number] [place] [address] [place] Cocaine Ql (U) Negative Normal Negative [facility] Comment on above: Order Comment: Speci men Type: URINE SPECIMENOrdering Facility: [facility] Address: [address] [place] [address] Result Comment: Cuto ff threshold at 300 ng/mL. Performed By: #### U TOX2 ####[facility] LABORATORYCLIA [id number] [place] [address] [place] Ethanol (U) [Mass/Vol] <11 Normal <11 [facility] Comment on above: Order Comment: Speci men Type: URINE SPECIMENOrdering Facility: [facility] Address: [address] [place] [address] Performed By: #### U TOX2 ####[facility] LABORATORYCLIA [id number] [place] [address] [place] Opiates Screen Ql (U) Negative Normal Negative [facility] Comment on above: Order Comment: Speci men Type: URINE SPECIMENOrdering Facility: [facility] Address: [address] [place] [address] Result Comment: Cuto ff threshold at 300 ng/mL. Performed By: #### U TOX2 ####[facility] LABORATORYCLIA [id number] [place] [address] [place] oxyCODONE cutoff Screen (U) [Mass/Vol] Negative Normal Negative [facility] Comment on above: Order Comment: Speci men Type: URINE SPECIMENOrdering Facility: [facility] Address: [address] [place] [address] Result Comment: Cuto ff threshold at 100 ng/mL. Performed By: #### U TOX2 ####[facility]ORATORYCLIA [id number] [address] Phencyclidine Ql (U) Negative Normal Negative [facility] Comment on above: Order Comment: Speci men Type: URINE SPECIMENOrdering Facility: [facility] Address: [address] [place] [address] Result Comment: Cuto ff threshold at 25 ng/mL. Performed By: #### U TOX2 ####CON[facility] LABORATORYCLIA [id number] [place] [id number] [facility] OF CED ALLIED HEALTHon 12-03-2024 ALLIED HEALTH HNO ID: [id number] Author: LILIAN SHAW CT Service: Radiology Author [...] PATIENT PRESENTS WITH AN IMPLANTABLE OR ATTACHED BEDSPREAD CUTTER: No RADIOLOGY DEPARTMENT: MR; Exam(s) Completed: Head: Routine Brain. Lavender Administered: No PERIPHERAL IV DATA: Not applicable SIGNED BY: RICHARD Viramontes December 03, 2024 6:00 PM [facility] HNO ID: [id number] Author: PAULA WOODS, TECHNOLOGIST Service: Radiology Author Type: Technologist Type: [...] PATIENT PRESENTS WITH AN IMPLANTABLE OR ATTACHED BEDSPREAD CUTTER: No RADIOLOGY DEPARTMENT: CT; Exam(s) Completed: Brain PERIPHERAL IV DATA: Not applicable Removed pt wedding ring per 's request. Ring given to in ER room 10 SIGNED BY: Paula Woods, TECHNOLOGIST December 03, 2024 8:23 AM [facility] ALLIED HEALTH HNO ID: [id number] Author: DENNIS WHITTEN Tech Service: Radiology Author Type: Medical Record Librarians Teacher Type: Allied Health Filed: 12/03/2024 08:19 Note Text: Radiology Service Progress Note PATIENT NAME: Maidha Perales DATE OF SERVICE: December 03, 2024 [...] PATIENT PRESENTS WITH AN IMPLANTABLE OR ATTACHED BEDSPREAD CUTTER: No RADIOLOGY DEPARTMENT: General X-ray: Exam(s) Completed: Chest X-Ray PERIPHERAL IV DATA: Not applicable SIGNED BY: Lobo Knight December 03, 2024 8:18 AM [facility] CBC W Auto Differential pane l (Bld)on 12-03-2024 Basophils (Bld) [#/Vol] 0.04 10*3/uL Normal <0.11 [facility] Comment on above: Order Comment: Speci men Type: BLOOD SPECIMENOrdering Facility: [facility] Address: [address] [place] [address] Performed By: #### 5 7021-8 ####[facility] LABORATORYCLIA [id number] [place] [address] [place] Basophils/100 WBC (Bld) 0.4 % Normal [facility] Comment on above: Order Comment: Speci men Type: BLOOD SPECIMENOrdering Facility: [facility] Address: [address] [place] [address] Performed By: #### 5 7021-8 ####[facility] LABORATORYCLIA [id number] [place] [address] [place] Differential cell count method Nom (Bld) Auto Normal [facility] Comment on above: Order Comment: Speci men Type: BLOOD SPECIMENOrdering Facility: [facility] Address: [address] [place] [address] Performed By: #### 5 7021-8 ####[facility] LABORATORYCLIA [id number] [place] [address] [place] Eosinophils (Bld) [#/Vol] 0.08 10*3/uL Normal <0.46 [facility] Comment on above: Order Comment: Speci men Type: BLOOD SPECIMENOrdering Facility: [facility] Address: [address] [place] [address] Performed By: #### 5 7021-8 ####[facility] LABORATORYCLIA [id number] [address] STATES OF [place] Eosinophils/100 WBC (Bld) 0.7 % Normal [facility] Comment on above: Order Comment: Speci men Type: BLOOD SPECIMENOrdering Facility: [facility] Address: [address] [place] [address] Performed By: #### 5 7021-8 ####[facility] LABORATORYCLIA [id number] [place] [address] [place] Erythrocyte distribution width (RBC) [Ratio] 14.0 % Normal 11.5-15.0 [facility] Comment on above: Order Comment: Speci men Type: BLOOD SPECIMENOrdering Facility: [facility] Address: [address] [place] [address] Performed By: #### 5 7021-8 ####[facility] LABORATORYCLIA [id number] [address] OF [place] Hematocrit (Bld) [Volume fraction] 44.6 % Normal 36.0-46.0 [facility] Comment on above: Order Comment: Speci men Type: BLOOD SPECIMENOrdering Facility: [facility] Address: [address] [place] [address] Performed By: #### 5 7021-8 ####[facility] LABORATORYCLIA [id number] [place] [address] [place] Hemoglobin (Bld) [Mass/Vol] 14.6 g/dL Normal 11.5-15.5 [facility] Comment on above: Order Comment: Speci men Type: BLOOD SPECIMENOrdering Facility: [facility] Address: [address] [place] [address] Performed By: #### 5 7021-8 ####[facility] LABORATORYCLIA [id number] [place] [address] [place] Immature granulocytes (Bld) [#/Vol] 10*3/uL Normal <0.10 [facility] Comment on above: Order Comment: Speci men Type: BLOOD SPECIMENOrdering Facility: [facility] Address: [address] [place] [address] Performed By: #### 5 7021-8 ####[facility] LABORATORYCLIA [id number] [address] OF [place] Immature granulocytes/100 WBC (Bld) 0.2 % Normal [facility] Comment on above: Order Comment: Speci men Type: BLOOD SPECIMENOrdering Facility: [facility] Address: [address] [place] [address] Performed By: #### 5 7021-8 ####[facility] LABORATORYCLIA [id number] [place] [address] [place] Lymphocytes (Bld) [#/Vol] 0.83 10*3/uL Low 1.00-4.00 [facility] Comment on above: Order Comment: Speci men Type: BLOOD SPECIMENOrdering Facility: [facility] Address: [address] [place] [address] Performed By: #### 5 7021-8 ####[facility] LABORATORYCLIA [id number] [address] [place] Lymphocytes/100 WBC (Bld) 7.5 % Normal [facility] Comment on above: Order Comment: Speci men Type: BLOOD SPECIMENOrdering Facility: [facility] Address: [address] [place] [address] Performed By: #### 5 7021-8 ####[facility] LABORATORYCLIA [id number] [place] [address] [place] MCH (RBC) [Entitic mass] 30.9 pg Normal 26.0-34.0 [facility] Comment on above: Order Comment: Speci men Type: BLOOD SPECIMENOrdering Facility: [facility] Address: [address] [place] [address] Performed By: #### 5 7021-8 ####[facility] LABORATORYCLIA [id number] [address] [place] MCHC (RBC) [Mass/Vol] 32.7 g/dL Normal 30.5-36.0 [facility] Comment on above: Order Comment: Speci men Type: BLOOD SPECIMENOrdering Facility: [facility] Address: [address] [place] [address] Performed By: #### 5 7021-8 ####[facility] LABORATORYCLIA [id number] [address] MCV (RBC) [Entitic vol] 94.5 fL Normal 80.0-100.0 [facility] Comment on above: Order Comment: Speci men Type: BLOOD SPECIMENOrdering Facility: [facility] Address: [address] [place] [address] Performed By: #### 5 7021-8 ####[facility] LABORATORYCLIA [id number] [address] [place] Monocytes (Bld) [#/Vol] 0.67 10*3/uL Normal <0.87 [facility] Comment on above: Order Comment: Speci men Type: BLOOD SPECIMENOrdering Facility: [facility] Address: [address] [place] [address] Performed By: #### 5 7021-8 ####[facility] LABORATORYCLIA [id number] [place] [address] [place] Monocytes/100 WBC (Bld) 6.1 % Normal [facility] Comment on above: Order Comment: Speci men Type: BLOOD SPECIMENOrdering Facility: [facility] Address: [address] [place] [address] Performed By: #### 5 7021-8 ####[facility] LABORATORYCLIA [id number] [place] [address] [place] Neutrophils (Bld) [#/Vol] 9.37 10*3/uL High 1.45-7.50 [facility] Comment on above: Order Comment: Speci men Type: BLOOD SPECIMENOrdering Facility: [facility] Address: [address] [place] [address] Performed By: #### 5 7021-8 ####[facility] LABORATORYCLIA [id number] [place] [address] [place] Neutrophils/100 WBC (Bld) 85.1 % Normal [facility] Comment on above: Order Comment: Speci men Type: BLOOD SPECIMENOrdering Facility: [facility] Address: [address] [place] [address] Performed By: #### 5 7021-8 ####[facility] LABORATORYCLIA [id number] [place] [address] [place] Nucleated RBC (Bld) [#/Vol] 10*3/uL Normal <0.01 [facility] Comment on above: Order Comment: Speci men Type: BLOOD SPECIMENOrdering Facility: [facility] Address: [address] [place] [address] Performed By: #### 5 7021-8 ####[facility] LABORATORYCLIA [id number] [place] [address] [place] Nucleated RBC/100 WBC (Bld) [Ratio] 0.0 /100 WBC Normal [facility] Comment on above: Order Comment: Speci men Type: BLOOD SPECIMENOrdering Facility: [facility] Address: [address] [place] [address] Performed By: #### 5 7021-8 ####[facility] LABORATORYCLIA [id number] [place] [address] [place] Platelet mean volume (Bld) [Entitic vol] 9.8 fL Normal 9.0-12.7 [facility] Comment on above: Order Comment: Speci men Type: BLOOD SPECIMENOrdering Facility: [facility] Address: [address] [place] [address] Performed By: #### 5 7021-8 ####[facility] LABORATORYCLIA [id number] [place] [address] [place] Platelets (Bld) [#/Vol] 201 10*3/uL Normal 150-400 [facility] Comment on above: Order Comment: Speci men Type: BLOOD SPECIMENOrdering Facility: [facility] Address: [address] [place] [address] Performed By: #### 5 7021-8 ####[facility] LABORATORYCLIA [id number] [place] [address] [place] RBC (Bld) [#/Vol] 4.72 10*6/uL Normal 3.90-5.20 [facility] Comment on above: Order Comment: Speci men Type: BLOOD SPECIMENOrdering Facility: [facility] Address: [address] [place] [address] Performed By: #### 5 7021-8 ####[facility] LABORATORYCLIA [id number] [place] [id number] [place] WBC (Bld) [#/Vol] 11.01 10*3/uL High 3.70-11.00 [facility] Comment on above: Order Comment: Speci men Type: BLOOD SPECIMENOrdering Facility: [facility] Address: [address] [place] [address] Performed By: #### 5 7021-8 ####[facility] LABORATORYCLIA [id number] [place] [id number] [facility] CT BRAIN WO IVCONon 12-04-[address] BRAIN WO IVCON * * *Final Report* * * DATE OF EXAM: Dec 03 2024 8:29AM [facility] 0504 - CT BRAIN WO IVCON [...] volume loss or normal pressure/communicatin g hydrocephalus. Ship Purser: PSCKojo Transcribe Date/Time: Dec 03 2024 8:45A Dictated by : LINDSEY GARCES MD This examination was interpreted and the report reviewed and electronically signed by: LINDSEY GARCES MD on Dec 03 2024 8:59AM EST [id number] Normal [facility] Comprehensive metabolic 2000 panelon 12-03-2024 Albumin [Mass/Vol] 4.5 g/dL Normal 3.9-4.9 [facility] Comment on above: Order Comment: Speci men Type: BLOOD SPECIMENOrdering Facility: [facility] Address: [address] [place] [address] Performed By: #### 2 4323-8, 3016-3, LIPNF ####[facility] LABORATORYCLIA [id number] [place] [address] [place] ALP [Catalytic activity/Vol] 106 U/L Normal 34-123 [facility] Comment on above: Order Comment: Speci men Type: BLOOD SPECIMENOrdering Facility: [facility] Address: [address] [place] [address] Performed By: #### 2 4323-8, 3016-3, LIPNF ####[facility] LABORATORYCLIA [id number] [place] [address] [place] ALT [Catalytic activity/Vol] 7 U/L Normal 7-38 [facility] Comment on above: Order Comment: Speci men Type: BLOOD SPECIMENOrdering Facility: [facility] Address: [address] [place] [address] Performed By: #### 2 4323-8, 3016-3, LIPNF ####[facility] LABORATORYCLIA [id number] [place] [address] [place] Anion gap [Moles/Vol] 11 mmol/L Normal 8-15 [facility] Comment on above: Order Comment: Speci men Type: BLOOD SPECIMENOrdering Facility: [facility] Address: [address] [place] [address] Performed By: #### 2 4323-8, 3016-3, LIPNF ####[facility] LABORATORYCLIA [id number] [place] [address] [place] AST [Catalytic activity/Vol] 16 U/L Normal 13-35 [facility] Comment on above: Order Comment: Speci men Type: BLOOD SPECIMENOrdering Facility: [facility] Address: [address] [place] [address] Performed By: #### 2 4323-8, 6-3, LIPNF ####[facility] LABORATORYCLIA [id number] [place] [address] [place] Bilirubin [Mass/Vol] 0.8 mg/dL Normal 0.2-1.3 [facility] Comment on above: Order Comment: Speci men Type: BLOOD SPECIMENOrdering Facility: [facility] Address: [address] [place] [address] Performed By: #### 2 4323-8, 3015-3, LIPNF ####[facility] LABORATORYCLIA [id number] [place] [address] [place] Calcium [Mass/Vol] 9.3 mg/dL Normal 8.5-10.2 [facility] Comment on above: Order Comment: Speci men Type: BLOOD SPECIMENOrdering Facility: [facility] Address: [address] [place] [address] Performed By: #### 2 4323-8, 6-3, LIPNF ####[facility] LABORATORYCLIA [id number] [place] [address] [place] Chloride [Moles/Vol] 101 mmol/L Normal 98-107 [facility] Comment on above: Order Comment: Speci men Type: BLOOD SPECIMENOrdering Facility: [facility] Address: [address] [place] [address] Performed By: #### 2 4323-8, 3016-3, LIPNF ####[facility] LABORATORYCLIA [id number] [place] [address] [place] CO2 [Moles/Vol] 28 mmol/L Normal 22-30 [facility] Comment on above: Order Comment: Speci men Type: BLOOD SPECIMENOrdering Facility: [facility] Address: [address] [place] [id number] Performed By: #### 2 4323-8, 3016-3, LIPNF ####[facility] LABORATORYCLIA [id number] [address] Creatinine [Mass/Vol] 0.72 mg/dL Normal 0.58-0.96 [facility] Comment on above: Order Comment: Yoav lujan Type: BLOOD SPECIMENOrdering Facility: [facility] Address: [address] [place] [address] Performed By: #### 2 4323-8, 3016-3, LIPNF ####[facility] LABORATORYCLIA [id number] [address] Creatinine and Glomerular filtration rate.predicted panel (S/P/Bld) 86 mL/min/1.73m??? Normal >=60 [facility] Comment on above: Order Comment: Yoav lujan Type: BLOOD SPECIMENOrdering Facility: [facility] Address: [address] [place] [address] Result Comment: Mateo mated Glomerular Filtration Rate [...] #### 2 4323-8, 3016-3, LIPNF ####[facility] LABORATORYCLIA [id number] [address] STATES OF [facility] Glucose [Mass/Vol] 127 mg/dL High 74-99 [facility] Comment on above: Order Comment: Yoav men Type: BLOOD SPECIMENOrdering Facility: [facility] Address: [address] [place] [address] Result Comment: The [place] [employer] Association (ADA) provides guidance for cutoff [...] Standards of Medical Care in Diabetes 2016, [place] [employer]. Diabetes Care. 2016.39(Suppl 1). Performed By: #### 2 4323-8, 3016-3, LIPNF ####[facility] LABORATORYCLIA [id number] [place] [address] [place] Potassium [Moles/Vol] 4.2 mmol/L Normal 3.7-5.1 [facility] Comment on above: Order Comment: Yoav lujan Type: BLOOD SPECIMENOrdering Facility: [facility] Address: [address] [place] [address] Performed By: #### 2 4323-8, 3016-3, LIPNF ####[facility] LABORATORYCLIA [id number] [place] [address] [place] Protein [Mass/Vol] 7.6 g/dL Normal 6.3-8.0 [facility] Comment on above: Order Comment: Yoav lujan Type: BLOOD SPECIMENOrdering Facility: [facility] Address: [address] [place] [address] Performed By: #### 2 4323-8, 6-3, LIPNF ####[facility] LABORATORYCLIA [id number] [address] [place] Sodium [Moles/Vol] 140 mmol/L Normal 136-144 [facility] Comment on above: Order Comment: Yoav lujan Type: BLOOD SPECIMENOrdering Facility: [facility] Address: [address] [place] [address] Performed By: #### 2 4323-8, 3016-3, LIPNF ####[facility] LABORATORYCLIA [id number] [place] [address] [place] Urea nitrogen [Mass/Vol] 15 mg/dL Normal 7-21 [facility] Comment on above: Order Comment: Yoav lujan Type: BLOOD SPECIMENOrdering Facility: [facility] Address: [address] [place] [address] [place] [address] Performed By: #### 2 4323-8, 3016-3, [facility] ####[facility] LABORATORYCLIA [id number] [place] [address] [facility] ED NOTEon 12-03-2024 ED NOTE HNO ID: [id number] Author: JOLLY HUDR RN Service: Nursing Author Type: Registered Nurse Type: ED Notes Filed: 12/03/2024 11:42 Note Text: Second heads up given to 3 south charge operator [facility] ED NOTE HNO ID: [id number] Author: JOLLY HURD RN Service: Nursing Author Type: Registered Nurse Type: ED Notes Filed: 12/03/2024 10:56 Note Text: Heads up given to 3 south charge operator [facility] ED NOTE HNO ID: [id number] Author: JOLLY HURD RN Service: Nursing Author Type: Registered Nurse Type: ED Notes Filed: 12/03/2024 10:52 Note Text: Pt awake, talking and provided with snacks. [facility] ED NOTE HNO ID: [id number] Author: JOLLY HURD RN Service: Nursing Author Type: Registered Nurse Type: ED Notes Filed: 12/03/2024 17:26 Note Text: Pt's requested we remove pt's wedding ring. Ring removed and given to at bedside. [facility] ED PROV NOTEon 12-03-2024 ED PROV NOTE HNO ID: [id number] Author: LUANA MENDOZA DO Service: Emergency Medicine [...] (more content not included)... [facility] [facility] EKGon 12-03-2024 Electrocardiogram Ventricular Rate : 9 2 BPM Atrial Rate : 92 BPM P-R Interval : 148 ms QRS Duration : 76 ms Q-T Interval : 364 ms QTC Calculation(Bazett) : 450 ms Calculated P [place] : 5 degrees Calculated R [place] : -7 degrees Calculated T [place] : 23 degrees NORMAL SINUS RHYTHM CANNOT RULE OUT ANTERIOR INFARCT , AGE UNDETERMINED ABNORMAL ECG Confirmed by LUANA MENDOZA DO ([id number]) on 12/03/2024 2:32:05 PM NAME : MADIHA PERALES PID : [id number] : 1945 Gender : Female Race : ORD : Procedure Date : Dec 03 2024 07:59:58 Edit Date : Dec 03 2024 14:32:08 Diagnosis: NORMAL SINUS RHYTHM CANNOT RULE OUT ANTERIOR INFARCT , AGE UNDETERMINED ABNORMAL ECG Confirmed by LUANA MENDOZA DO ([id number]) on 12/03/2024 2:32:05 PM Test Reason : Location : 1 : ER ED Overread By : LUANA MENDOZA DO Edited By : LUANA MENDOZA DO Referred By : , Acquired by : [id number], Normal [facility] HISTORY PHYSICALon HISTORY PHYSICAL HNO ID: [id number] Author: ANAHI POLANCO MD Service: Hospital Medicine Author Type: Physician Type: H&P Filed: 12/03/2024 16:43 Note Text: DEPARTMENT OF HOSPITAL MEDICINE HISTORY AND PHYSICAL EXAM SERVICE DATE: 12/03/2024 SERVICE TIME: 3:58 PM Primary Care Physician: Marie Devi MD NIGHT AND WEEKEND COVERAGE: [address] COVERAGE: Days: [phone], please page attending physician. Nights: [phone], please page [facility] Night coverage pager [phone]. 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 Patient is a poor historian and [...] temperature was 98.7F, pulse [place] 88/[place] [address], RR of 22/min, 99% on room air. [...] (more content not included)... Normal [facility] LIPID PANEL, NONFASTINGon Cholesterol [Mass/Vol] 152 mg/dL Normal <200 [facility] Comment on above: Order Comment: Speci men Type: BLOOD SPECIMENOrdering Facility: [facility] Address: [address] [place] [address] Result Comment: <200 mg/dL, Desirable 200-239 mg/dL, Borderline high >239 mg/dL, High Performed By: #### 2 4323-8, 3016-3, LIPNF ####[facility]ORYCLIA [id number] [address] HDL CHOLESTEROL, NF 54 mg/dL Normal >39 [facility] Comment on above: Order Comment: Yoav lujan Type: BLOOD SPECIMENOrdering Facility: [facility] Address: [address] [place] [address] Result Comment: 40-5 9 mg/dL, Acceptable >59 mg/dL, High: Negative risk factor for coronary heart disease <40 mg/dL, Low: Positive risk factor for coronary heart disease Performed By: #### 2 4323-8, 3016-3, LIPNF ####[facility]ATORYCLIA [id number] [address] LDL CHOLESTEROL CALCULATED, NF 84 mg/dL Normal <100 [facility] Comment on above: Order Comment: Yoav tai Type: BLOOD SPECIMENOrdering Facility: [facility] Address: [address] [place] [address] Result Comment: <100 mg/dL, Optimal 100-129 mg/dL, Near optimal/above optimal 130-159 mg/dL, Borderline high 160-189 mg/dL, High >189 mg/dL, Very high Secondary prevention optimal LDL Cholesterol levels are recommended to be <70 mg/dL LDL cholesterol is calculated using the Lock-NIH equation. Performed By: #### 2 4323-8, 3016-3, LIPNF ####[facility]ORYCLIA [id number] [address] LDL/HDL RATIO, NF 1.56 mg/dL Normal <2.54 [facility] Comment on above: Order Comment: Yoav lujan Type: BLOOD SPECIMENOrdering Facility: [facility] Address: [address] [place] [address] Result Comment: Refe rence: 1. National Cholesterol Education Program ATP III Guideline At-A-Glance Quick Desk Reference: National Heart, Lung, and Blood [place]. National Institutes of Health. 2001: NIH Publication No. 01-3305. 2. An International Atherosclerosis Society position paper: global recommendations for the management of dyslipidemia: executive summary, Atherosclerosis. 2014: 232(2):410-413. Performed By: #### 2 4323-8, 3016-3, LIPNF ####[facility]ORYCLIA [id number] [address] NON HDL CHOL, NF 98 mg/dL Normal <130 [facility] Comment on above: Order Comment: Speci men Type: BLOOD SPECIMENOrdering Facility: [facility] Address: [address] [place] [address] Result Comment: <130 mg/dL, Optimal 130-159 mg/dL, Near optimal/above optimal 160-189 mg/dL, Borderline high 190-219 mg/dL, High >219 mg/dL, Very high Secondary prevention optimal non HDL Cholesterol levels are recommended to be <100 mg/dL Performed By: #### 2 4323-8, 3015-3, LIPNF ####[facility]ORYCLIA [id number] [address] T CHOL/HDL RATIO NF 2.81 mg/dL Normal <5.10 [facility] Comment on above: Order Comment: Speci men Type: BLOOD SPECIMENOrdering Facility: [facility] Address: [address] [place] [address] Performed By: #### 2 4323-8, 3015-3, LIPNF ####[facility]ORYCLIA [id number] [address] TRIGLYCERIDES, NF 70 mg/dL Normal <150 [facility] Comment on above: Order Comment: Speci men Type: BLOOD SPECIMENOrdering Facility: [facility] Address: [address] [place] [address] Result Comment: <150 mg/dL, Normal 150-199 mg/dL, Borderline high 200-499 mg/dL, High >499 mg/dL, Very high Performed By: #### 2 4323-8, 3016-3, LIPNF ####[facility]ATORYCLIA [id number] [address] OF CED VLDL CHOLESTEROL, NF 11 mg/dL Normal <30 [facility] Comment on above: Order Comment: Speci men Type: BLOOD SPECIMENOrdering Facility: [facility] Address: [address] [place] [address] Performed By: #### 2 4323-8, 3016-3, LIPNF ####[facility]ORATORYCLIA [id number] [place] [address] [place] MRI BRAIN WO IVCONon 025 MRI BRAIN WO IVCON * * *Final Report* * * DATE OF EXAM: Dec 03 2024 6:17PM MDM 0294 - MRI BRAIN WO IVCON / PROCEDURE REASON: Delirium * * * * Physician Interpretation * * * * EXAMINATION: MRI BRAIN WO IVCON HISTORY: Delirium - - - Altered state of awareness - Delirium - [id number] - - - - TECHNIQUE: MRI brain [...] acute infarct. Extensive chronic changes as detailed. Ship Purser: PSCB Transcribe Date/Time: Dec 03 2024 8:33P Dictated by : SAGE ÁLVAREZ MD This examination was interpreted and the report reviewed and electronically signed by: SAGE ÁLVAREZ MD on Dec 03 2024 8:43PM EST [id number] N Normal [facility] SEPSIS LACTATE W/ REFLEX (IN ITIAL)on 12-03-2024 Lactate [Moles/Vol] 1.4 mmol/L Normal 0.5-2.0 [facility] Comment on above: Order Comment: Yoav lujan Type: BLOOD SPECIMENOrdering Facility: [facility] Address: [place] [address] Performed By: #### S LACTR ####[facility]ATORYCLIA [id number] [place], [place] [address] [place] [address] THERAPY NTon 12-03-2024 THERAPY NT HNO ID: [id number] Author: TERRY CHERRY OT/L Service: Occupational Therapy Author Type: Occupational Therapist Type: Therapy (PT/OT/Speech/Resp) Filed: 12/03/2024 14:34 Note Text: Summary: OT Missed Visit OCCUPATIONAL THERAPY MISSED VISIT SERVICE DATE: 12/03/2024 SERVICE TIME: 1430 ROOM: [place] [address] Patient not seen due to Incomplete Orders. Awaiting ED note and/or HANDP in order to complete chart review of patient and determine clinical appropriateness for participation in therapy evaluation at this time. Will re-attempt as schedule allows pending pt appropriateness. SIGNATURE: CARY Bhardwaj PATIENT NAME: Madiha Perales DATE: December 03, 2024 TIME: 2:31 PM Normal [facility] TSH SerPl-aCncon 12-03-2024 TSH Qn 1.260 m[IU]/L Normal 0.270-4.200 [facility] Comment on above: Order Comment: Speci men Type: BLOOD SPECIMENOrdering Facility: [facility] Address: [address] [place] [address] Performed By: #### 2 4323-8, 3016-3, LIPNF ####[facility]ATORYCLIA [id number] [address] Urinalysis complete panel (U )on 12-03-2024 Bacteria LM.HPF (Urine sed) [#/Area] Few Abnormal None Seen [facility] Comment on above: Order Comment: Speci men Type: URINE SPECIMENOrdering Facility: [facility] Address: [address] [place] [address] Performed By: #### 2 4356-8 ####[facility]ATORYCLIA [id number] [address] Bilirubin Ql (U) Negative Normal Negative [facility] Comment on above: Order Comment: Speci men Type: URINE SPECIMENOrdering Facility: [facility] Address: [address] [place] [address] Performed By: #### 2 4356-8 ####[facility]ATORYCLIA [id number] [address] Clarity (Unsp spec) Clear Normal Clear [facility] Comment on above: Order Comment: Speci men Type: URINE SPECIMENOrdering Facility: [facility] Address: [address] [place] [address] Performed By: #### 2 4356-8 ####[facility]ATORYCLIA [id number] [address] Color (U) Yellow Normal Yellow [facility] Comment on above: Order Comment: Speci men Type: URINE SPECIMENOrdering Facility: [facility] Address: [address] [place] [address] Performed By: #### 2 4356-8 ####[facility]ORYCLIA [id number] [address] Epithelial cells LM.HPF (Urine sed) [#/Area] Few Normal [facility] Comment on above: Order Comment: Speci men Type: URINE SPECIMENOrdering Facility: [facility] Address: [address] [place] [address] Performed By: #### 2 4356-8 ####[facility]ORYCLIA [id number] [address] Glucose Test strip (U) [Mass/Vol] Negative Normal Negative [facility] Comment on above: Order Comment: Speci men Type: URINE SPECIMENOrdering Facility: [facility] Address: [address] [place] [address] Performed By: #### 2 4356-8 ####[facility]ORATORYCLIA [id number] [place] [address] [place] Hemoglobin Ql (U) Trace Abnormal Negative [facility] Comment on above: Order Comment: Speci men Type: URINE SPECIMENOrdering Facility: [facility] Address: [address] [place] [address] Performed By: #### 2 4356-8 ####[facility]ATORYCLIA [id number] [place] [address] [place] Ketones Ql (U) Negative Normal Negative [facility] Comment on above: Order Comment: Speci men Type: URINE SPECIMENOrdering Facility: [facility] Address: [address] [place] [address] Performed By: #### 2 4356-8 ####[facility]ATORYCLIA [id number] [address] Leukocyte esterase Test strip Ql (U) Trace Abnormal Negative [facility] Comment on above: Order Comment: Speci men Type: URINE SPECIMENOrdering Facility: [facility] Address: [address] [place] [address] Performed By: #### 2 4356-8 ####[facility]ATORYCLIA [id number] [place] [address] [place] Nitrite Ql (U) Negative Normal Negative [facility] Comment on above: Order Comment: Speci men Type: URINE SPECIMENOrdering Facility: [facility] Address: [address] [place] [address] Performed By: #### 2 4356-8 ####[facility]ATORYCLIA [id number] [address] C[place] pH (U) 7.0 [pH] Normal 5.0-8.0 [facility] Comment on above: Order Comment: Speci men Type: URINE SPECIMENOrdering Facility: [facility] Address: [address] [place] [address] Performed By: #### 2 4356-8 ####[facility]ATORYCLIA [id number] [address] Protein (U) [Mass/Vol] Negative Normal Negative [facility] Comment on above: Order Comment: Speci men Type: URINE SPECIMENOrdering Facility: [facility] Address: [address] [place] [address] Performed By: #### 2 4356-8 ####[facility]ORATORYCLIA [id number] [address] [place] RBC LM.HPF (Urine sed) [#/Area] 0-3 /HPF Normal 0-3 /HPF [facility] Comment on above: Order Comment: Speci men Type: URINE SPECIMENOrdering Facility: [facility] Address: [address] [place] [address] Performed By: #### 2 4356-8 ####[facility]ORATORYCLIA [id number] [address] [place] Specific gravity (U) [Rel density] 1.015 Normal 1.005-1.030 [facility] Comment on above: Order Comment: Speci men Type: URINE SPECIMENOrdering Facility: [facility] Address: [address] [place] [address] Performed By: #### 2 4356-8 ####[facility]ORYCLIA [id number] [address] [place] Urobilinogen Ql (U) 0.2 EU/dL Normal 0.2-1.0 EU/dL [facility] Comment on above: Order Comment: Speci men Type: URINE SPECIMENOrdering Facility: [facility] Address: [address] [place] [address] Performed By: #### 2 4356-8 ####[facility]ORATORYCLIA [id number] [place] [address] [place] WBC LM.HPF (Urine sed) [#/Area] 0-5 /HPF Normal 0-5 /HPF [facility] Comment on above: Order Comment: Speci men Type: URINE SPECIMENOrdering Facility: [facility] Address: [address] [place] [address] Performed By: #### 2 4356-8 ####[facility] [facility] LABORATORYCLIA [id number] [place] [address] [place] XR CHEST 1V [...] silhouette. Other: . IMPRESSION: No acute process. Ship Purser: JARVIS Transcribe Date/Time: Dec 03 2024 8:33A Dictated by : BOOKER PEDRAZA MD This examination was interpreted and the report reviewed and electronically signed by: BOOKER PEDRAZA MD on Dec 03 2024 8:34AM EST [id number] N Normal [facility] 25-hydroxyvitamin D3 [Mass/V ol]on 09-18-2024 25-hydroxyvitamin D [Mass/Vol] 51 ng/mL 30 - 100 ng/mL [facility] Comment on above: Vitamin D Status 25- [place] Vitamin D: Deficiency: <20 ng/mL Insufficiency: 20 - 29 ng/mL Optimal: > or = 30 ng/mL For 25-OH Vitamin D testing on patients on D2-supplementation and patients for whom quantitation of D2 and D3 fractions is required, the [facility] 25-[place] VIT D, (D2,D3), LC/MS/MS is recommended: order code 73221 (patients >2yrs). See Note 1 Note 1 For additional information, please refer to http://Superfish.RAP Index/faq/LLQ275 (This link is being provided for informational/ educational purposes only.) CBC (INCLUDES DIFF/PLT)on Basophils (Bld) [#/Vol] 0.027 10*3/uL Normal 0-200 [facility] Comment on above: Performed By: #### 3 6127, 70119, 6399, 65371, 71920 #### [facility] of [address], [address] [place] [address] Administrative Coordinator: Jame Mena MD Basophils/100 WBC (Bld) 0.4 % Normal [facility] Comment on above: Performed By: #### 3 6127, 75617, 6399, 24764, 66526 #### [facility] [address], [address] [place] [address] Administrative Coordinator: Jame Mena MD Eosinophils (Bld) [#/Vol] 0.168 10*3/uL Normal 15-500 [facility] Comment on above: Performed By: #### 3 6127, 41959, 6399, 62429, 52955 #### [facility] [address], [address] [place] [address] Administrative Coordinator: Jame Mena MD Eosinophils/100 WBC (Bld) 2.5 % Normal [facility] Comment on above: Performed By: #### 3 6127, 77619, 6399, 77818, 07926 #### [facility] [place] [address] Administrative Coordinator: Jame Mena MD Erythrocyte distribution width (RBC) [Ratio] 12.6 % Normal 11.0-15.0 [facility] Comment on above: Performed By: #### 3 6127, 85666, 6399, 78470, 86336 #### [facility] [place] [address] Administrative Coordinator: Jame Mena MD Hematocrit (Bld) [Volume fraction] 43.6 % Normal 35.0-45.0 [facility] Comment on above: Performed By: #### 3 6127, 01106, 6399, 50318, 18990 #### [facility] of [address], [address] [place] [address] Administrative Coordinator: Jame Mena MD Hemoglobin (Bld) [Mass/Vol] 14.6 g/dL Normal 11.7-15.5 [facility] Comment on above: Performed By: #### 3 6127, 32524, 6399, 44245, 44777 #### [facility] of [place] [address] Administrative Coordinator: Jame Mena MD Lymphocytes (Bld) [#/Vol] 1.206 10*3/uL Normal 850-3900 [facility] Comment on above: Performed By: #### 3 6127, 48808, 6399, 98250, 64290 #### [facility] of [address], [address] [place] [address] Administrative Coordinator: Jame Mena MD Lymphocytes/100 WBC (Bld) 18.0 % Normal [facility] Comment on above: Performed By: #### 3 6127, 58098, 6399, 83467, 09431 #### [facility] of [place] [address] Administrative Coordinator: Jame Mena MD MCH (RBC) [Entitic mass] 31.6 pg Normal 27.0-33.0 [facility] Comment on above: Performed By: #### 3 6127, 73099, 6399, 83568, 99259 #### [facility] of [place] [address] Administrative Coordinator: Jame Mena MD MCHC (RBC) [Mass/Vol] 33.5 [...] clinical condition. Performed By: #### 3 6127, 18689, 6399, 30631, 15675 #### [facility] of [address], [address] [place] [address] Administrative Coordinator: Jame Mena MD MCV (RBC) [Entitic vol] 94.4 fL Normal 80.0-100.0 [facility] Comment on above: Performed By: #### 3 6127, 74170, 6399, 91978, 79136 #### [facility] of [place] [address] Administrative Coordinator: Jame Mena MD Monocytes (Bld) [#/Vol] 0.469 10*3/uL Normal 200-950 [facility] Comment on above: Performed By: #### 3 6127, 91975, 6399, 55868, 01593 #### [facility] of [address], [address] [place] [address] Administrative Coordinator: Jame Mena MD Monocytes/100 WBC (Bld) 7.0 % Normal [facility] Comment on above: Performed By: #### 3 6127, 61539, 6399, 96071, 09272 #### [facility] of [place] [address] Administrative Coordinator: Jame Mena MD Neutrophils (Bld) [#/Vol] 4.831 10*3/uL Normal 7113-2792 [facility] Comment on above: Performed By: #### 3 6127, 24823, 6399, 29859, 78714 #### [facility] of [place] [address] Administrative Coordinator: Jame Mena MD Neutrophils/100 WBC (Bld) 72.1 % Normal [facility] Comment on above: Performed By: #### 3 6127, 47278, 6399, 55000, 14941 #### [facility] of [place] [address] Administrative Coordinator: Jame Mena MD Platelet mean volume (Bld) [Entitic vol] 11.2 fL Normal 7.5-12.5 [facility] Comment on above: Performed By: #### 3 6127, 76299, 6399, 30170, 53878 #### [facility] [place] [address] Administrative Coordinator: Jame Mena MD Platelets (Bld) [#/Vol] 206 10*3/uL Normal 140-400 [facility] Comment on above: Performed By: #### 3 6127, 84590, 6399, 01743, 48870 #### [facility] [place] [address] Administrative Coordinator: Jame Mena MD RBC (Bld) [#/Vol] 4.62 10*6/uL Normal 3.80-5.10 [facility] Comment on above: Performed By: #### 3 6127, 00962, 6399, 98225, 38227 #### [facility] [place] [address] Administrative Coordinator: Jame Mena MD WBC (Bld) [#/Vol] 6.7 10*3/uL Normal 3.8-10.8 [facility] Comment on above: Performed By: #### 3 6127, 76480, 6399, 61960, 91708 #### [facility] of [place] [address] Administrative Coordinator: Jame Mena MD CBC W Auto Differential pane l (Bld)on 09-18-2024 Basophils (Bld) [#/Vol] 27 10*3/uL [facility] Basophils/100 WBC (Bld) 0.4 % [facility] Eosinophils (Bld) [#/Vol] 168 10*3/uL [facility] Eosinophils/100 WBC (Bld) 2.5 % [facility] Erythrocyte distribution width (RBC) [Ratio] 12.6 % 11.0 - 15.0 % [facility] Hematocrit (Bld) [Volume fraction] 43.6 % 35.0 - 45.0 % [facility] Hemoglobin (Bld) [Mass/Vol] 14.6 g/dL 11.7 - 15.5 g/dL [facility] Lymphocytes (Bld) [#/Vol] 1206 10*3/uL [facility] Lymphocytes/100 WBC (Bld) 18 % [facility] MCH (RBC) [Entitic mass] 31.6 pg 27.0 - 33.0 pg [facility] MCHC (RBC) [Mass/Vol] 33.5 g/dL 32.0 - 36.0 g/dL [facility] Comment on above: For adults, a slight decrease in the calculated MCHC value (in the range of 30 to 32 g/dL) is most likely not clinically significant; however, it should be interpreted with caution in correlation with other red cell parameters and the patient's clinical condition. MCV (RBC) [Entitic vol] 94.4 fL 80.0 - 100.0 fL [facility] Monocytes (Bld) [#/Vol] 469 10*3/uL [facility] Monocytes/100 WBC (Bld) 7 % [facility] Neutrophils (Bld) [#/Vol] 4831 10*3/uL [facility] Neutrophils/100 WBC (Bld) 72.1 % [facility] Platelet mean volume (Bld) [Entitic vol] 11.2 fL 7.5 - 12.5 fL [facility] Platelets (Bld) [#/Vol] 206 10*3/uL [facility] RBC (Bld) [#/Vol] 4.62 10*6/uL [facility] WBC (Bld) [#/Vol] 6.7 10*3/uL [facility] COMPREHENSIVE METABOLIC PANE L W/ANION GAPon 09-18-2024 Albumin [Mass/Vol] 4.4 g/dL Normal 3.6-5.1 [facility] Comment on above: Order Comment: FASTI NG:NO FASTING: NO Performed By: #### 3 4570, 35788, 1880, 25438, 70508 #### [facility] [address], [address] [place] [address] Administrative Coordinator: Jame Mena MD ALP [Catalytic activity/Vol] 95 U/L Normal 37-153 [facility] Comment on above: Order Comment: FASTI NG:NO FASTING: NO Performed By: #### 3 6127, 40404, 6399, 71211, 90457 #### [facility] [address], [address] [place] [address] Administrative Coordinator: Jame Mena MD ALT [Catalytic activity/Vol] 17 U/L Normal 6-29 [facility] Comment on above: Order Comment: FASTI NG:NO FASTING: NO Performed By: #### 3 6127, 87157, 6399, 36835, 50793 #### [facility] [place] [address] Administrative Coordinator: Jame Mena MD AST [Catalytic activity/Vol] 15 U/L Normal 10-35 [facility] Comment on above: Order Comment: FASTI NG:NO FASTING: NO Performed By: #### 3 6127, 76705, 6399, 37088, 97793 #### [facility] [place] [address] Administrative Coordinator: Jame Mena MD Bilirubin [Mass/Vol] 0.6 mg/dL Normal 0.2-1.2 [facility] Comment on above: Order Comment: FASTI NG:NO FASTING: NO Performed By: #### 3 6127, 99766, 6399, 69837, 78877 #### [facility] [place] [address] Administrative Coordinator: Jame Mena MD Calcium [Mass/Vol] 9.7 mg/dL Normal 8.6-10.4 [facility] Comment on above: Order Comment: FASTI NG:NO FASTING: NO Performed By: #### 3 6127, 12500, 6399, 19844, 11312 #### [facility] [place] [address] Administrative Coordinator: Jame Mena MD Chloride [Moles/Vol] 102 mmol/L Normal 98-110 [facility] Comment on above: Order Comment: FASTI NG:NO FASTING: NO Performed By: #### 3 6127, 00808, 6399, 68798, 50196 #### [facility] [place] [address] Administrative Coordinator: Jame Mena MD CO2 [Moles/Vol] 32 mmol/L Normal 20-32 [facility] Comment on above: Order Comment: FASTI NG:NO FASTING: NO Performed By: #### 3 6127, 47319, 6399, 86626, 62471 #### [facility] [place] [address] Administrative Coordinator: Jame Mena MD Creatinine [Mass/Vol] 0.59 mg/dL Low 0.60-1.00 [facility] Comment on above: Order Comment: FASTI NG:NO FASTING: NO Performed By: #### 3 6127, 97306, 6399, 87942, 59818 #### [facility] [place] [address] Administrative Coordinator: Jame Mena MD ELECTROLYTE BALANCE 8 mmol/L (calc) Normal 7-17 [facility] Comment on above: Order Comment: FASTI NG:NO FASTING: NO Performed By: #### 3 6127, 39842, 6399, 34004, 99555 #### [facility] [place] [address] Administrative Coordinator: Jame Mena MD GFR/1.73 sq M.predicted among non-blacks MDRD (S/P/Bld) [Vol rate/Area] 92 mL/min/{1.73_m2} Normal > OR = 60 [facility] Comment on above: Order Comment: FASTI NG:NO FASTING: NO Performed By: #### 3 6127, 78177, 6399, 58074, 92085 #### [facility] [place] [address] Administrative Coordinator: Jame Mena MD Glucose [Mass/Vol] 86 mg/dL Normal 65-139 [facility] Comment on above: Order Comment: FASTI NG:NO FASTING: NO Result Comment: Non-fasting reference interval Performed By: #### 3 6127, 35033, 6399, 89827, 04343 #### [facility] [place] [address] Administrative Coordinator: Jame Mena MD Potassium [Moles/Vol] 4.7 mmol/L Normal 3.5-5.3 [facility] Comment on above: Order Comment: FASTI NG:NO FASTING: NO Performed By: #### 3 6127, 46393, 6399, 66660, 47924 #### [facility] [place] [address] Administrative Coordinator: Jame Mena MD Protein [Mass/Vol] 6.9 g/dL Normal 6.1-8.1 [facility] Comment on above: Order Comment: FASTI NG:NO FASTING: NO Performed By: #### 3 6127, 54220, 6399, 72004, 56913 #### [facility] [place] [address] Administrative Coordinator: Jame Mena MD Sodium [Moles/Vol] 142 mmol/L Normal 135-146 [facility] Comment on above: Order Comment: FASTI NG:NO FASTING: NO Performed By: #### 3 6127, 39859, 6399, 20143, 78287 #### [facility] [place] [address] Administrative Coordinator: Jame Mena MD Urea nitrogen [Mass/Vol] 15 mg/dL Normal 7-25 [facility] Comment on above: Order Comment: FASTI NG:NO FASTING: NO Performed By: #### 3 6127, 34286, 6399, 88111, 23435 #### [facility] [place] [address] Administrative Coordinator: Jame Mena MD Comprehensive metabolic 2000 panelon 09-18-2024 Albumin [Mass/Vol] 4.4 g/dL 3.6 - 5.1 g/dL [facility] ALP [Catalytic activity/Vol] 95 U/L 37 - 153 U/L [facility] ALT [Catalytic activity/Vol] 17 U/L 6 - 29 U/L [facility] Anion gap [Moles/Vol] 8 [facility] AST [Catalytic activity/Vol] 15 U/L 10 - 35 U/L [facility] Bilirubin [Mass/Vol] 0.6 mg/dL 0.2 - 1 .2 mg/dL [facility] Calcium [Mass/Vol] 9.7 mg/dL 8.6 - 10. 4 mg/dL [facility] Chloride [Moles/Vol] 102 mmol/L 98 - 11 0 mmol/L [facility] CO2 [Moles/Vol] 32 mmol/L 20 - 32 mmol/L [facility] Creatinine [Mass/Vol] 0.59 mg/dL Low 0.60 - 1.00 mg/dL [facility] GFR/1.73 sq M.predicted among non-blacks MDRD (S/P/Bld) [Vol rate/Area] 92 mL/min/{1.73_m2} > OR = 60 mL/min/1.73 m2 [facility] Glucose [Mass/Vol] 86 mg/dL 65 - 139 mg/dL [facility] Comment on above: Non-fasting reference interval Potassium [Moles/Vol] 4.7 mmol/L 3.5 - 5.3 mmol/L [facility] Protein [Mass/Vol] 6.9 g/dL 6.1 - 8.1 g/dL [facility] Sodium [Moles/Vol] 142 mmol/L 135 - 146 mmol/L [facility] Urea nitrogen [Mass/Vol] 15 mg/dL 7 - 25 mg/dL [facility] HEMOGLOBIN A1c WITH eAGon eAG (mmol/L) 6.5 mmol/L Normal [facility] Comment on above: Performed By: #### 3 4044, 26840, 6393, 76482, 75686 #### [facility] [address], [address] [place] [address] Administrative Coordinator: Jame Mena MD HEMOGLOBIN A1c 5.7 % [...] for children. Performed By: #### 3 6127, 85218, 6399, 06256, 07204 #### [facility] [address], [address] [place] [address] Administrative Coordinator: Jame Mena MD Magnesium [Mass/Vol] 117 mg/dL [facility] Comment on above: Performed By: #### 3 6127, 61928, 6399, 45578, 22034 #### [facility] [place] [address] Administrative Coordinator: Jame Mena MD HbA1c (Bld) [Mass fraction]o n 09-18-2024 Average glucose Estimated from glycated hemoglobin (Bld) [Mass/Vol] 117 mg/dL [facility] Average glucose Estimated from glycated hemoglobin (Bld) [Moles/Vol] 6.5 mmol/L [facility] Hemoglobin A1Con 09-18-2024 HbA1c (Bld) [Mass fraction] 5.7 % High [facility] Comment on above: For someone without [...] Interpretation and review of laboratory results Abnormal [facility] FASTING:NO FASTING: NO [facility] [place] [facility] TSH W/REFLEX TO FT4on 2024 TSH W/REFLEX TO FT4 2.56 mIU/L Normal 0.40-4.50 [facility] Comment on above: Performed By: #### 3 6127, 96177, 6399, 47314, 83956 #### [facility] [address], [address] [place], [place] [address] Administrative Coordinator: Jame Mena MD Tsh With Reflex To Free T4 I f Abnormalon 09-18-2024 TSH Qn 2.56 m[IU]/L [facility] VITAMIN B12on 09-18-2024 Cobalamin (Vitamin B12) [Mass/Vol] 504 pg/mL Normal 200-1100 [facility] Comment on above: Performed By: #### 3 6127, 59627, 6399, 05751, 07154 #### [facility] [address], [address] [place] [address] Administrative Coordinator: Jame Mena MD VITAMIN D,25-OH,TOTAL,IAon 0 09-18-2024 [...] D, (D2,D3), LC/MS/MS is recommended: order code [id number] (patients >2yrs). See Note 1 Note 1 For additional information, please refer to [email or web address] (This link is being provided for informational/ educational purposes only.) Performed By: #### 3 6127, 70372, 6399, 67031, 89218 #### [facility] [address], [address] [place] [address] Administrative Coordinator: Jame Mena MD Vitamin B12on 09-18-2024 Cobalamin (Vitamin B12) [Mass/Vol] 504 pg/mL 200 - 1100 pg/mL [facility] 36on 08-10-2024 36 LVM with pt that pharmacy is working on Arimidex refill. Encouraged to call with any further concerns. Normal [facility] Office Visiton 08-10-2024 Follow-up visit [id number] Madiha Perales 1945 F Date Provider Department Center 08/10/2024 [id number] ESCOBEDO [facility] ONC None Family History Problem Relation Age of Onset Breast cancer Mother Lung cancer Father Colon cancer Paternal Grandfather Family Status - Relation Status Age at Mother Father Paternal Grandfather Level of Service:02131 [place] OFFICE/OUTPATIENT ESTABLISHED LOW [facility] 20 MIN Reason for Visit and Comments: Breast Cancer [302] Normal [facility] Progress Noteon 08-10-2024 Progress Note Hematology/Oncology Office Visit Oncology History: 1) stage 1A left breast cancer, invasive ductal carcinoma grade 3. ER+ NV+ HER2+. cT1b N0 M0; pT1c N0 M0, diagnosed 01/28/23. - Patient is a 78 yo F who presented with an abnormal screening mammogram of the upper outer quadrant of the left breast on 11/27/22. Diagnostic imaging and ultrasound were performed on 01/21/2023: a 0.9 x 0.9 x 1 cm irregular mass in the left breast. Biopsy was performed at [facility] on 01/28/2023 confirming grade 3 invasive ductal carcinoma ER positive 100%, NV positive 70% and HER2 positive at 3+. The patient underwent lumpectomy and sentinel node removal on 02/18/[address] Choi at [facility]: pathology revealed grade 3 invasive ductal carcinoma measuring 1.9 cm. There was focal DCIS and extensive lymphovascular invasion. Margins were negative for invasive and in situ component at greater than 2 mm. 6 axillary nodes were removed: 5 sentinel and 1 nonsentinel. All were negative.Pathological ly staged T1CN0. - she was referred to [facility] for medical and radiation oncology. Her case [...] She had a bilateral screening mammogram at [facility] on 03/25/24 which was negative for [...] apnea) The patient wears CPAP Parkinson disease ([facility]) Stroke ([facility]) 2009 Torn meniscus Uterine cancer [...] mouth 2 (more content not included)... Normal [facility] 36on 08-02-2024 36 Refill request received for anastrazole. Prescription pended. Normal [facility] DBT Breast - bilateral scree vannesagon 03-26-2024 IMPRESSION: There is no mammographic evidence of malignancy. Routine follow-up mammogram in 1 year is recommended. BI-RADS Category 2: Benign Interpreting Radiologist: Cm Rausch M.D. Electronically signed on: 03/26/2024 Ship Purser: SURESH Transcribe Date/Time: Mar 25 2024 3:19P Dictated by : CM RAUSCH MD This examination was interpreted and the report reviewed and electronically signed by: CM RAUSCH MD on Mar 26 2024 10:24AM [facility] RAD[facility]OLOG[facility] * * *Final Report* * * DATE OF EXAM: Mar 25 2024 3:42PM [facility] [address] [facility] SCREENING W SHIVA / PROCEDURE REASON: multiple diagnoses * * * * Physician Interpretation * * * * [facility] [address] [id number] HISTORY: Patient is 79 years old and [...] other abnormalities are seen in either breast. [address] [facility] Provider, [facility] - 03/26/2024 * * *Final Report* * * DATE OF EXAM: Mar 25 2024 3:42PM [facility] [address] [facility] SCREENING W SHIVA / PROCEDURE REASON: multiple diagnoses * * * * Physician Interpretation * * * * [facility] [address] [place] [address] HISTORY: Patient is 79 years old and [...] Cm Rausch M.D. Electronically signed on: 03/26/2024 Ship Purser: SURESH Transcribe Date/Time: Mar 25 2024 3:19P Dictated by : CM RAUSCH MD This examination was interpreted and the report reviewed and electronically signed by: CM RAUSCH MD on Mar 26 2024 10:24AM EST [facility] DBT Breast - bilateral scree ningOrdered By: [facility]cf Provider on 03-26-2024 [facility] DBT Breast - bilateral scree ningon 03-25-2024 Radiology Study observation (narrative) [facility] LEE SCREENING W TOMOon 03-25 LEE SCREENING W SHIVA * * *Final Report* * * DATE OF EXAM: Mar 25 2024 3:42PM [facility] - LEE SCREENING W SHIVA / PROCEDURE REASON: multiple diagnoses * * * * Physician Interpretation * * * * [place] [id number] HISTORY: Patient is 79 years old and [...] Cm Rausch M.D. Electronically signed on: 03/26/2024 Ship Purser: SURESH Transcribe Date/Time: Mar 25 2024 3:19P Dictated by : CM RAUSCH MD This examination was interpreted and the report reviewed and electronically signed by: CM RAUSCH MD on Mar 26 2024 10:24AM EST [id number] N [facility] Encounteron 024 Hospital Encounter [id number] Madiha Perales 1945 F Date Provider Department Center 03/16/2024 [id number] DIEGO [facility] RAD ON None Family History Problem Relation Age of Onset Breast cancer Mother Lung cancer Father Colon cancer Paternal Grandfather Family Status - Relation Status Age at Mother Father Paternal Grandfather Level of Service:03265 [place] OFFICE/OUTPATIENT ESTABLISHED LOW [facility] 20 MIN Reason for Visit and Comments: Follow-up [005580] [facility] Nursing Noteon 03-16-2024 Nursing Note The patient is here at [facility] with her for follow up with Dr. Diego. She arrived in a wheelchair. She uses a care or walker at times to ambulate around the house. She does physical therapy at [facility]. She denies pain at the current time. She denies skin issues at the previous site of radiation. Her appetite and sleeping are "good". Her energy level is fair. She is taking Arimidex as prescribed. She is scheduled for her next mammogram in March of 2024. She continues to follow up with Dr. Choi and Dr. Escobedo. [facility] Progress Noteon 03-16-2024 Progress Note RADIATION ONCOLOGY FOLLOW UP PATIENT: Madiha Perales DATE OF SERVICE: 03/16/2024 : 1945 AGE: 79 y.o. PRIMARY SITE AND HISTOPATHOLOGY: Left breast, grade 3 invasive ductal carcinoma, ER positive, NV positive, HER2 positive. STAGE: cT1b N0 M0, [...] the left breast. Biopsy was performed at [facility] on 01/28/2023. This revealed grade 3 invasive ductal carcinoma measuring at least 8 mm in dimension. ER positive at 100%, NV positive at 70% and HER2 positive at [...] distance. She is undergoing physical therapy at [facility] physical therapy. She denies any breast issues. [...] back pain Breast calcifications on mammogram Dementia ([facility]) Depression Eczema H/O colonoscopy Hemorrhoid Hx of rosacea Lower extremity edema MARCY (obstructive sleep apnea) The patient wears CPAP Parkinson disease ([facility]) Stroke ([facility]) 2009 Torn meniscus Uterine cancer ([facility]) ([facility]) 2005 PAST SURGICAL HISTORY: Past [...] CARB-CHOLECALCIFEROL PO (more content not included)... Normal [facility] 02-19-2024 [facility] Office Visit (DIONISIO ) MADIHA PERALES ([id number]) 1945 F Date Time Provider Department 02/19/24 [...] breast in female, estrogen receptor positive (HCC) [facility] Notes under scanned Documents INTERVAL [...] wheezes Extremiti (more content not included)... Normal [facility] 36on 02-03-2024 36 Refill for Arimidex pended to be signed if agreeable. Normal [facility] 02-03-2024 [facility] Telephone (Omate) MADIHA PERALES ([id number]) 1945 F Date Time Provider Department 02/03/24 [...] (HCC) [C50.412, Z17.0] Order(s):LEE SCREENING W SHIVA [[id number]] Order #: [id number] FUTURE Prescriptions as of 02/05/2024 - anastrozole [...] 06/12/23, patient is now finished with levofloxacin, Deepa Fernandez RN Problem List As Of Date [...] Status:Closed by CHANELLE ROSENBERG on 02/05/24 Normal [facility] Office Visiton 02-03-2024 Follow-up visit [id number] Madiha Perales 1945 F Date Provider Department Center 02/03/2024 [id number] ESCOBEDO [facility] ONC None Family History Problem Relation Age of Onset Breast cancer Mother Lung cancer Father Colon cancer Paternal Grandfather Family Status - Relation Status Age at Mother Father Paternal Grandfather Level of Service:07418 [place] OFFICE/OUTPATIENT ESTABLISHED MOD MDM 30 MIN Reason for Visit and Comments: Breast Mass [188920] Normal [facility] Progress Noteon 02-03-2024 Progress Note Hematology/Oncology Office Visit Oncology History: 1) stage 1A left breast cancer, invasive ductal carcinoma grade 3. ER+ NV+ HER2+. cT1b N0 M0; pT1c N0 M0, diagnosed 01/28/23. - Patient is a 78 yo F who presented with an abnormal screening mammogram of the upper outer quadrant of the left breast on 11/27/22. Diagnostic imaging and ultrasound were performed on 01/21/2023: a 0.9 x 0.9 x 1 cm irregular mass in the left breast. Biopsy was performed at [facility] on 01/28/2023 confirming grade 3 invasive ductal carcinoma ER positive 100%, NV positive 70% and HER2 positive at 3+. The patient underwent lumpectomy and sentinel node removal on 02/18/[address] Choi at [facility]: pathology revealed grade 3 invasive ductal carcinoma measuring 1.9 cm. There was focal DCIS and extensive lymphovascular invasion. Margins were negative for invasive and in situ component at greater than 2 mm. 6 axillary nodes were removed: 5 sentinel and 1 nonsentinel. All were negative.Pathological ly staged T1CN0. - she was referred to [facility] for medical and radiation oncology. Her case [...] Refill amoxicillin (more content not included)... Normal [facility] Office Visiton 11-04-2023 Follow-up visit [id number] Madiha Perales Latha 1945 F Date Provider Department Center 11/04/2023 [id number] ESCOBEDO [facility] ONC None Family History Problem Relation Age of Onset Breast cancer Mother Lung cancer Father Colon cancer Paternal Grandfather Family Status - Relation Status Age at Mother Father Paternal Grandfather Level of Service:35768 [place] OFFICE/OUTPATIENT ESTABLISHED MOD MDM 30 MIN Reason for Visit and Comments: Breast Cancer [302] Normal [facility] Progress Noteon 11-04-2023 Progress Note Hematology/Oncology Office Visit Oncology History: 1) stage 1A left breast cancer, invasive ductal carcinoma grade 3. ER+ NV+ HER2+. cT1b N0 M0; pT1c N0 M0, diagnosed 01/28/23. - Patient is a 78 yo F who presented with an abnormal screening mammogram of the upper outer quadrant of the left breast on 11/27/22. Diagnostic imaging and ultrasound were performed on 01/21/2023: a 0.9 x 0.9 x 1 cm irregular mass in the left breast. Biopsy was performed at [facility] on 01/28/2023 confirming grade 3 invasive ductal carcinoma ER positive 100%, NV positive 70% and HER2 positive at 3+. The patient underwent lumpectomy and sentinel node removal on 02/18/[address] Choi at [facility]: pathology revealed grade 3 invasive ductal carcinoma measuring 1.9 cm. There was focal DCIS and extensive lymphovascular invasion. Margins were negative for invasive and in situ component at greater than 2 mm. 6 axillary nodes were removed: 5 sentinel and 1 nonsentinel. All were negative.Pathological ly staged T1CN0. - [facility]. Her [...] Herceptin discontinued (last dose was 09/23/23). HPI: Madiah Perales is a 78 y.o. female who [...] apnea) The patient wears CPAP Parkinson disease ([facility]) Stroke ([facility]) 2009 Torn meniscus Uterine cancer ([facility]) ([facility]) 2005 Past Surgical History: Procedure [...] left breast in female, estrogen receptor positive ([facility]) 03/18/2023 Edema of both lower extremities 02/05/2023 Parkinsonism 02/05/2023 Allergic reaction to bee sting 10/29/2022 Allergic rhinitis 10/29/2022 Eczema 10/29/2022 Eczema 10/29/2022 Elevated TSH 10/29/2022 External hemorrhoids 10/29/2022 Hair loss 10/29/2022 Low back pain 10/29/2022 Menopausal state 10/29/2022 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 Normal [facility] Basic metabolic 2000 panelon 10-27-2023 Anion gap [Moles/Vol] 12 mmol/L 9 - 18 mmol/L [facility] Calcium [Mass/Vol] 8.5 mg/dL 8.5 - 10. 2 mg/dL [facility] Chloride [Moles/Vol] 107 mmol/L High 97 - 10 5 mmol/L [facility] CO2 [Moles/Vol] 24 mmol/L 22 - 30 mmol/L [facility] Creatinine [Mass/Vol] 0.71 mg/dL 0.58 - 0.96 mg/dL [facility] GFR/1.73 sq M.predicted among non-blacks MDRD (S/P/Bld) [Vol rate/Area] 88 mL/min/{1.73_m2} - PINF [facility] Comment on above: Estimated Glomerular Filtration Rate [...] [Mass/Vol] 77 mg/dL 74 - 99 mg/dL [facility] Comment on above: The [place] Di[employer] Association (ADA) provides guidance for [...] Standards of Medical Care in Diabetes 2016, [place] [employer]. Diabetes Care. 2016.39(Suppl 1). Interpretation and review of laboratory results Abnormal [facility] Potassium [Moles/Vol] 4.2 mmol/L 3.7 - 5.1 mmol/L [facility] Sodium [Moles/Vol] 143 mmol/L 136 - 144 mmol/L [facility] Urea nitrogen [Mass/Vol] 17 mg/dL 7 - 21 mg/dL [facility] CBC panel Auto (Bld)on 10-26 Erythrocyte distribution width (RBC) [Ratio] 14.8 % 11.5 - 15.0 % [facility] Hematocrit (Bld) [Volume fraction] 39.8 % 36.0 - 46.0 % [facility] Hemoglobin (Bld) [Mass/Vol] 12.9 g/dL 11.5 - 15.5 g/dL [facility] Interpretation and review of laboratory results Normal [facility] MCH (RBC) [Entitic mass] 29.9 pg 26.0 - 34.0 pg [facility] MCHC (RBC) [Mass/Vol] 32.4 g/dL 30.5 - 36.0 g/dL [facility] MCV (RBC) [Entitic vol] 92.1 fL 80.0 - 100.0 fL [facility] Nucleated RBC (Bld) [#/Vol] NINF [facility] Platelet mean volume (Bld) [Entitic vol] 10.6 fL 9.0 - 12.7 fL [facility] Platelets (Bld) [#/Vol] 168 10*3/uL [facility] RBC (Bld) [#/Vol] 4.32 10*6/uL 3.90 - 5.2 0 m/uL [facility] WBC (Bld) [#/Vol] 5.72 10*3/uL [facility] Basic metabolic 2000 panelon 10-23-2023 Anion gap [Moles/Vol] 9 mmol/L 9 - 18 mmol/L [facility] Calcium [Mass/Vol] 8.5 mg/dL 8.5 - 10. 2 mg/dL [facility] Chloride [Moles/Vol] 104 mmol/L 97 - 10 5 mmol/L [facility] CO2 [Moles/Vol] 27 mmol/L 22 - 30 mmol/L [facility] Creatinine [Mass/Vol] 0.73 mg/dL 0.58 - 0.96 mg/dL [facility] GFR/1.73 sq M.predicted among non-blacks MDRD (S/P/Bld) [Vol rate/Area] 85 mL/min/{1.73_m2} - PINF [facility] Comment on above: Estimated Glomerular Filtration Rate [...] [Mass/Vol] 76 mg/dL 74 - 99 mg/dL [facility] Comment on above: The [place] Di[employer] Association (ADA) provides guidance for [...] Standards of Medical Care in Diabetes 2016, [place] [employer] Association. Diabetes Care. 2016.39(Suppl 1). Interpretation and review of laboratory results Normal [facility] Potassium [Moles/Vol] 4.2 mmol/L 3.7 - 5.1 mmol/L [facility] Sodium [Moles/Vol] 140 mmol/L 136 - 144 mmol/L [facility] Urea nitrogen [Mass/Vol] 15 mg/dL 7 - 21 mg/dL [facility] CBC panel Auto (Bld)on 10-22 Erythrocyte distribution width (RBC) [Ratio] 15.0 % 11.5 - 15.0 % [facility] Hematocrit (Bld) [Volume fraction] 42.1 % 36.0 - 46.0 % [facility] Hemoglobin (Bld) [Mass/Vol] 13.7 g/dL 11.5 - 15.5 g/dL [facility] Interpretation and review of laboratory results Normal [facility] MCH (RBC) [Entitic mass] 29.9 pg 26.0 - 34.0 pg [facility] MCHC (RBC) [Mass/Vol] 32.5 g/dL 30.5 - 36.0 g/dL [facility] MCV (RBC) [Entitic vol] 91.9 fL 80.0 - 100.0 fL [facility] Nucleated RBC (Bld) [#/Vol] NINF [facility] Platelet mean volume (Bld) [Entitic vol] 10.5 fL 9.0 - 12.7 fL [facility] Platelets (Bld) [#/Vol] 164 10*3/uL [facility] RBC (Bld) [#/Vol] 4.58 10*6/uL 3.90 - 5.2 0 m/uL [facility] WBC (Bld) [#/Vol] 7.20 10*3/uL [facility] Basic metabolic 2000 panelon 10-20-2023 Anion gap [Moles/Vol] 7 mmol/L Low 9 - 18 mmol/L [facility] Calcium [Mass/Vol] 8.4 mg/dL Low 8.5 - 10. 2 mg/dL [facility] Chloride [Moles/Vol] 101 mmol/L 97 - 10 5 mmol/L [facility] CO2 [Moles/Vol] 31 mmol/L High 22 - 30 mmol/L [facility] Creatinine [Mass/Vol] 0.91 mg/dL 0.58 - 0.96 mg/dL [facility] GFR/1.73 sq M.predicted among non-blacks MDRD (S/P/Bld) [Vol rate/Area] 65 mL/min/{1.73_m2} - PINF [facility] Comment on above: Estimated Glomerular Filtration Rate [...] [Mass/Vol] 83 mg/dL 74 - 99 mg/dL [facility] Comment on above: The [place] Di[employer] s Association (ADA) provides guidance for [...] Standards of Medical Care in Diabetes 2016, [place] Diabetes [employer]. Diabetes Care. 2016.39(Suppl 1). Interpretation and review of laboratory results Abnormal [facility] Potassium [Moles/Vol] 4.4 mmol/L 3.7 - 5.1 mmol/L [facility] Sodium [Moles/Vol] 139 mmol/L 136 - 144 mmol/L [facility] Urea nitrogen [Mass/Vol] 30 mg/dL High 7 - 21 mg/dL [facility] CBC panel Auto (Bld)on 10-19 Erythrocyte distribution width (RBC) [Ratio] 15.0 % 11.5 - 15.0 % [facility] Hematocrit (Bld) [Volume fraction] 42.7 % 36.0 - 46.0 % [facility] Hemoglobin (Bld) [Mass/Vol] 13.7 g/dL 11.5 - 15.5 g/dL [facility] Interpretation and review of laboratory results Abnormal [facility] MCH (RBC) [Entitic mass] 29.9 pg 26.0 - 34.0 pg [facility] MCHC (RBC) [Mass/Vol] 32.1 g/dL 30.5 - 36.0 g/dL [facility] MCV (RBC) [Entitic vol] 93.2 fL 80.0 - 100.0 fL [facility] Nucleated RBC (Bld) [#/Vol] NINF [facility] Platelet mean volume (Bld) [Entitic vol] 10.6 fL 9.0 - 12.7 fL [facility] Platelets (Bld) [#/Vol] 184 10*3/uL [facility] RBC (Bld) [#/Vol] 4.58 10*6/uL 3.90 - 5.2 0 m/uL [facility] WBC (Bld) [#/Vol] 11.11 10*3/uL [facility] Basic metabolic 2000 panelon 10-16-2023 Anion gap [Moles/Vol] 9 mmol/L 9 - 18 mmol/L [facility] Calcium [Mass/Vol] 9.1 mg/dL 8.5 - 10. 2 mg/dL [facility] Chloride [Moles/Vol] 101 mmol/L 97 - 10 5 mmol/L [facility] CO2 [Moles/Vol] 29 mmol/L 22 - 30 mmol/L [facility] Creatinine [Mass/Vol] 0.66 mg/dL 0.58 - 0.96 mg/dL [facility] GFR/1.73 sq M.predicted among non-blacks MDRD (S/P/Bld) [Vol rate/Area] 90 mL/min/{1.73_m2} - PINF [facility] Comment on above: Estimated Glomerular Filtration Rate [...] [Mass/Vol] 91 mg/dL 74 - 99 mg/dL [facility] Comment on above: The [place] Diabete s Association (ADA) provides guidance for [...] Standards of Medical Care in Diabetes 2016, [place] Diabetes Association. Diabetes Care. 2016.39(Suppl 1). Interpretation and review of laboratory results Abnormal [facility] Potassium [Moles/Vol] 4.7 mmol/L 3.7 - 5.1 mmol/L [facility] Sodium [Moles/Vol] 139 mmol/L 136 - 144 mmol/L [facility] Urea nitrogen [Mass/Vol] 29 mg/dL High 7 - 21 mg/dL [facility] CBC panel Auto (Bld)on 10-15 Erythrocyte distribution width (RBC) [Ratio] 14.4 % 11.5 - 15.0 % [facility] Hematocrit (Bld) [Volume fraction] 46.6 % High 36.0 - 46.0 % [facility] Hemoglobin (Bld) [Mass/Vol] 15.3 g/dL 11.5 - 15.5 g/dL [facility] Interpretation and review of laboratory results Abnormal [facility] MCH (RBC) [Entitic mass] 30.1 pg 26.0 - 34.0 pg [facility] MCHC (RBC) [Mass/Vol] 32.8 g/dL 30.5 - 36.0 g/dL [facility] MCV (RBC) [Entitic vol] 91.6 fL 80.0 - 100.0 fL [facility] Nucleated RBC (Bld) [#/Vol] NINF [facility] Platelet mean volume (Bld) [Entitic vol] 10.8 fL 9.0 - 12.7 fL [facility] Platelets (Bld) [#/Vol] 219 10*3/uL [facility] RBC (Bld) [#/Vol] 5.09 10*6/uL 3.90 - 5.2 0 m/uL [facility] WBC (Bld) [#/Vol] 12.59 10*3/uL High [facility] 36on 10-13-2023 36 Spoke with Wesley about Citlaly. Citlaly was admitted to [facility] last Friday10/07/23. She says that she [...] home on Good Friday and a good yazidism found her and assisted her. She is [...] steroids. Recommended that she reach out to [facility]'s neurologist with an update. She is unsure [...] out to our office on discharge from [facility]. Will plan for Dr. Escobedo to reassess patient's functional and cognitive status prior to further infusion treatments. [facility] 36on 10-06-2023 36 Follow up call made to pt., no answer - LMOM. Will continue to monitor and follow. Lisa Watters, MPA, RDN LD CDCES [facility] CBC W Auto Differential pane l (Bld)Ordered By: Annie Call on 09-23-2023 Basophils (Bld) [#/Vol] 0.0 10*3/uL 0.0 - 0.2 10*3/uL [employer] Basophils/100 WBC (Bld) 0.5 % 0.0 - 2.0 % [facility] Eosinophils (Bld) [#/Vol] 0.1 10*3/uL 0.0 - 0.5 10*3/uL [employer] Eosinophils/100 WBC (Bld) 2.2 % 0.0 - 6.0 % [facility] Erythrocyte distribution width (RBC) [Ratio] 13.9 % 11.5 - 15.0 % [facility] Hematocrit (Bld) [Volume fraction] 43.9 % 35.0 - 47.0 % [facility] Hemoglobin (Bld) [Mass/Vol] 14.2 g/dL 11.7 - 16.0 g/dL [facility] Immature granulocytes (Bld) [#/Vol] 0.0 10*3/uL NINF - 0.1 10*3/uL [facility] Immature granulocytes/100 WBC (Bld) 0.4 % 0.0 - 2.0 % [facility] Interpretation and review of laboratory results Abnormal [facility] Lymphocytes (Bld) [#/Vol] 0.9 10*3/uL Low 1.0 - 4.3 10*3/uL [facility] Lymphocytes/100 WBC (Bld) 16.8 % 15.0 - 45.0 % [facility] MCH (RBC) [Entitic mass] 29.8 pg 26.0 - 34.0 pg [facility] MCHC (RBC) [Mass/Vol] 32.3 % 30.5 - 36.0 % [facility] MCV (RBC) [Entitic vol] 92.2 fL 77.0 - 99.0 fL [facility] Monocytes (Bld) [#/Vol] 0.4 10*3/uL 0.0 - 0.9 10*3/uL [facility] Monocytes/100 WBC (Bld) 6.8 % 5.0 - 13.0 % [facility] Neutrophils (Bld) [#/Vol] 4.0 10*3/uL 1.8 - 7.5 10*3/uL [facility] Neutrophils/100 WBC (Bld) 73.3 % 38.0 - 82.0 % [facility] Nucleated RBC/100 WBC (Bld) [Ratio] 0.0 % [facility] Platelet mean volume (Bld) [Entitic vol] 9.8 fL 9.0 - 12.7 fL [facility] Comment on above: MPV is a calculated measurement using platelet volume ratio Platelets (Bld) [#/Vol] 205 10*3/uL 140 - 440 10*3/uL [facility] RBC (Bld) [#/Vol] 4.76 10*6/uL 3.80 - 5.2 0 10*6/uL [facility] WBC (Bld) [#/Vol] 5.5 10*3/uL 3.6 - 10.7 10*3/uL [facility] CBC WITH AUTO DIFFERENTIALon 09-23-2023 Basophils (Bld) [#/Vol] 0.0 10*3/uL Normal 0.0-0.2 [facility] Comment on above: Performed By: #### L [id number] ####Administrative Coordinator: GRISELDA ROSALES ([phone])[facility] [place] [address] Basophils/100 WBC (Bld) 0.5 % Normal 0.0-2.0 S [facility] Comment on above: Performed By: #### L [id number] ####Administrative Coordinator: GRISELDA ROSALES ([phone])[facility] ([facility])[address] [place] [address] Eosinophils (Bld) [#/Vol] 0.1 10*3/uL Normal 0.0-0.5 [facility] Comment on above: Performed By: #### L [id number] ####Administrative Coordinator: GRISELDA ROSALES ([phone])[facility] ([facility])[address] [place] [address] Eosinophils/100 WBC (Bld) 2.2 % Normal 0.0-6.0 [facility] Comment on above: Performed By: #### L [id number] ####Administrative Coordinator: GRISELDA ROSALES ([phone])[facility] ([facility])[address] [place] [address] Erythrocyte distribution width (RBC) [Ratio] 13.9 % Normal 11.5-15.0 [facility] Comment on above: Performed By: #### L [id number] ####Administrative Coordinator: GRISELDA ROSALES ([phone])[facility] ([facility])[address] [place] [address] Hematocrit (Bld) [Volume fraction] 43.9 % Normal 35.0-47.0 [facility] Comment on above: Performed By: #### L [id number] ####Administrative Coordinator: GRISELDA ROSALES ([phone])[facility] ([facility])[address] [place] [address] Hemoglobin (Bld) [Mass/Vol] 14.2 g/dL Normal 11.7-16.0 [facility] Comment on above: Performed By: #### L [id number] ####Administrative Coordinator: GRISELDA ROSALES ([phone])[facility] ([facility])[address] [place] [address] IMMATURE GRANS % 0.4 % Normal 0.0-2.0 [facility] Comment on above: Performed By: #### L [id number] ####Administrative Coordinator: GRISELDA HAYSADALGISA ([phone])[facility] ([facility])[address] [place] [address] IMMATURE GRANS ABSOLUTE 0.0 10*3/uL Normal <0.1 [facility] Comment on above: Performed By: #### L [id number] ####Administrative Coordinator: GRISELDA ROSALES ([phone])[facility] ([facility])[address] [place] [address] Lymphocytes (Bld) [#/Vol] 0.9 10*3/uL Low 1.0-4.3 [facility] Comment on above: Performed By: #### L [id number] ####Administrative Coordinator: GRISELDA ROSALES ([phone])[facility] ([facility])[address] [place] [address] Lymphocytes/100 WBC (Bld) 16.8 % Normal 15.0-45.0 [facility] Comment on above: Performed By: #### L [id number] ####Administrative Coordinator: GRISELDA HAYSADALGISA ([phone])[facility] ([facility])[address] [place] [address] MCH (RBC) [Entitic mass] 29.8 pg Normal 26.0-34.0 [facility] Comment on above: Performed By: #### L [id number] ####Administrative Coordinator: GRISELDAJAZMYN SIMMONSTigistADALGISA ([phone])[facility])[address] [place] [address] MCHC 32.3 % Normal 30.5-36.0 [facility] Comment on above: Performed By: #### L [id number] ####Administrative Coordinator: GRISELDA CONNIE ([phone])[facility] ([facility])[address] [place] [address] MCV (RBC) [Entitic vol] 92.2 fL Normal 77.0-99.0 S [facility] Comment on above: Performed By: #### L [id number] ####Administrative Coordinator: GRISELDAJAZMYN ROSALES ([phone])[facility] ([facility])[address] [place] [address] Monocytes (Bld) [#/Vol] 0.4 10*3/uL Normal 0.0-0.9 [facility] Comment on above: Performed By: #### L [id number] ####Administrative Coordinator: GRISELDA CONNIE ([phone])[facility] ([facility])[address] [place] [address] Monocytes/100 WBC (Bld) 6.8 % Normal 5.0-13.0 [facility] Comment on above: Performed By: #### L [id number] ####Administrative Coordinator: GRISELDA HAYSADALGISA ([phone])[facility] ([facility])[address] [place] [address] NEUTROPHILS ABSOLUTE 4.0 10*3/uL Normal 1.8-7.5 [facility] Comment on above: Performed By: #### L [id number] ####Administrative Coordinator: GRISELDA HAYSADALGISA ([phone])[facility] ([facility])[address] [place] [address] Neutrophils/100 WBC (Bld) 73.3 % Normal 38.0-82.0 [facility] Comment on above: Performed By: #### L [id number] ####Administrative Coordinator: GRISELDA ROSALES ([phone])[facility] ([facility])[address] [place] [address] NRBC 0.0 /100 WBCs Normal 0.0-2.0 [facility] Comment on above: Performed By: #### L [id number] ####Administrative Coordinator: GRISELDA ROSALES ([phone])[facility] (ML[facility])[address] [place] [address] Platelet mean volume (Bld) [Entitic vol] 9.8 fL Normal 9.0-12.7 [facility] Comment on above: Result Comment: MPV is a calculated measurement using platelet volume ratio Performed By: #### L [id number] ####Administrative Coordinator: GRISELDA ROSALES ([phone])[facility] ([facility])[address] [place] [address] Platelets (Bld) [#/Vol] 205 10*3/uL Normal 140-440 [facility] Comment on above: Performed By: #### L [id number] ####Administrative Coordinator: GRISELDA ROSALES ([phone])[facility] ([facility])[address] [place] [address] RBC (Bld) [#/Vol] 4.76 10*6/uL Normal 3.80-5.20 [facility] Comment on above: Performed By: #### L [id number] ####Administrative Coordinator: GRISELDA ROSALES ([phone])[facility] (ML[facility])[address] [place] [address] WBC (Bld) [#/Vol] 5.5 10*3/uL Normal 3.6-10.7 [facility] Comment on above: Performed By: #### L [id number] ####Administrative Coordinator: GRISELDA ROSALES ([phone])[facility] ([facility])[address] [place] [address] Comprehensive metabolic 2000 panelon 09-23-2023 Albumin [Mass/Vol] 3.4 g/dL 3.3 - 5.5 g/dL [facility] ALP [Catalytic activity/Vol] 83 U/L 42 - 141 U/L [facility] ALT [Catalytic activity/Vol] 20 U/L 10 - 47 U/L [facility] Anion gap [Moles/Vol] 9.00 mmol/L -4.00 - 12.00 mmol/L [facility] AST [Catalytic activity/Vol] 29 U/L 11 - 38 U/L [facility] Bilirubin [Mass/Vol] 0.7 mg/dL 0.2 - 1 .6 mg/dL [facility] Calcium [Mass/Vol] 9.3 mg/dL 8.0 - 10. 3 mg/dL [facility] Chloride [Moles/Vol] 104 mmol/L [facility] CO2 [Moles/Vol] 27 mmol/L [facility] GFR/1.73 sq M.predicted MDRD (S/P/Bld) [Vol rate/Area] 76.0 mL/min/{1.73_m2} - PINF [facility] Glucose [Mass/Vol] 133 mg/dL High 73 - 118 mg/dL [facility] Interpretation and review of laboratory results Abnormal [facility] Potassium [Moles/Vol] 3.8 mmol/L [facility] Protein [Mass/Vol] 6.5 g/dL 6.4 - 8.1 g/dL [facility] Sodium [Moles/Vol] 140 mmol/L [facility] Urea nitrogen [Mass/Vol] 19 mg/dL 7 - 22 mg/dL [facility] Urea nitrogen/Creatinine [Mass ratio] 0.8 mg/dL 0.6 - 1.2 mg/dL [facility] Progress Noteon 09-23-2023 Progress Note Patient arrived for Q 3 week Trazimera infusion. Per patient family patient had unwitnessed fall this week. Patient did not have walker with her and fell,[facility] denies injury. Encouraged patient family if noticed [...] ambulatory with family prior to discharge. Normal [facility] US Heart TransthoracicOrdere d By: Sachin Watkins on 09-18-2023 Aortic Sinus Valsalva 3.3 cm [facility] Work Phone: Aortic Sinus Valsalva Index 1.66 cm/m2 [facility] Work Phone: AR Max Velocity PISA 3.5 m/s [facility] Work Phone: AR PHT 456.7 ms [facility] Work Phone: Ascending Aorta 3.5 cm [facility] Work Phone: Ascending Aorta Index 1.76 cm/m2 [facility] Work Phone: AV Area by Peak Velocity 2.4 cm2 [facility] Work Phone: AV Area by VTI 2.7 cm2 [facility] Work Phone: AV Mean Gradient 4 mmHg [facility] Work Phone: AV Mean Velocity 0.9 m/s [facility] Work Phone: AV Peak Gradient 7 mmHg [facility] Work Phone: AV Peak Velocity 1.3 m/s [facility] Work Phone: AV Velocity Ratio 0.77 [facility] Work Phone: AV VTI 22.8 cm [facility] Work Phone: BHARTI/BSA Peak Velocity 1.2 cm2/m2 [facility] Work Phone: BHARTI/BSA VTI 1.4 cm2/m2 [facility] Work Phone: E/E' Lateral 7.43 [facility] Work Phone: E/E' Ratio (Averaged) 8.05 [facility] Work Phone: E/E' Septal 8.67 [facility] Work Phone: EF BP 60 % 55 - 100 % [facility] Work Phone: Fractional Shortening 2D 24 % 28 - 44 % [facility] Work Phone: Global Longitudinal Strain -17.3 % [facility] [employer] Work Phone: Interpretation and review of laboratory results Abnormal [facility] Work Phone: IVC Diameter 2.1 cm [facility] Work Phone: IVSd 1.1 cm Abnormal 0.6 - 0.9 cm [facility] Work Phone: LA Volume 2C 79 mL Abnormal 22 - 52 mL [facility] Work Phone: LA Volume 4C 65 mL Abnormal 22 - 52 mL [facility] Work Phone: LA Volume A/L 78 mL [facility] Work Phone: LA Volume Index 2C 40 mL/m2 Abnormal 16 - 34 mL/m2 [facility] Work Phone: LA Volume Index 4C 33 mL/m2 16 - 34 mL/m2 [facility] [employer] Work Phone: LA Volume Index A/L 39 mL/m2 16 - 34 mL/m2 [facility] Work Phone: LV E' Lateral Velocity 7 cm/s [facility] Work Phone: LV E' Septal Velocity 6 cm/s [facility] Work Phone: LV EDV A2C 87 mL [facility] Work Phone: LV EDV A4C 66 mL [facility] Work Phone: LV EDV BP 77 mL 56 - 104 mL [facility] Work Phone: LV EDV Index A2C 44 mL/m2 [facility] al[facility] Work Phone: LV EDV Index A4C 33 mL/m2 [facility] Work Phone: LV EDV Index BP 39 mL/m2 [facility] Work Phone: LV Ejection Fraction A2C 58 % [facility] Work Phone: LV Ejection Fraction A4C 60 % [facility] Work Phone: LV ESV A2C 37 mL [facility] Work Phone: LV ESV A4C 26 mL [facility] Work Phone: LV ESV BP 31 mL 19 - 49 mL [facility] Work Phone: LV ESV Index A2C 19 mL/m2 [facility] Work Phone: LV ESV Index A4C 13 mL/m2 [facility] He alth Work Phone: LV ESV Index BP 16 mL/m2 [facility] lt Work Phone: LV Mass 2D 96.9 g 67 - 162 g [facility] Work Phone: LV Mass 2D Index 48.7 g/m2 43 - 95 g/m2 [facility] Work Phone: LV RWT Ratio 0.38 [facility] Work Phone: LVIDd 3.7 cm Abnormal 3.9 - 5.3 cm [facility] Work Phone: LVIDd Index 1.86 cm/m2 [facility] Work Phone: LVIDs 2.8 cm [facility] Work Phone: LVIDs Index 1.41 cm/m2 [facility] Work Phone: LVOT Area 3.1 cm2 [facility] Work Phone: LVOT Cardiac Output 5.4 liter/mi nut e [facility] Work Phone: LVOT Diameter 2.0 cm [facility] [employer] Work Phone: LVOT Mean Gradient 2 mmHg [employer] Work Phone: LVOT Peak Gradient 4 mmHg [employer] Work Phone: LVOT Peak Velocity 1.0 m/s [employer] Work Phone: LVOT Stroke Volume Index 30.1 mL/m2 [employer] Work Phone: LVOT SV 60.0 ml [facility] [employer] Work Phone: LVOT VTI 19.1 cm [employer] Work Phone: LVOT:AV VTI Index 0.84 [facility] [employer] Work Phone: LVPWd 0.7 cm 0.6 - 0.9 cm [facility] [employer] Work Phone: MV A Velocity 0.78 m/s [facility] [employer] Work Phone: MV E Velocity 0.52 m/s [facility] [employer] Work Phone: MV E Wave Deceleration Time 275.7 ms [facility] [employer] Phone: MV E/A 0.67 [facility] [employer] Phone: RV Free Wall Peak S' 15 cm/s [facility] [employer] Work Phone: Sinotubular Junction 2.8 cm [facility] [employer] Work Phone: TAPSE 2.0 cm 1.7 cm [facility] [employer] Work Phone: [facility] [employer] Work Phone: Heart Transthoracicon Left Ventricle: Left [...] Additional Conclusions No significant valvular abnormalities. CV [facility] Hospital Encounteron 024 Hospital Encounter [id number] Madiha Perales 1945 F Date Provider Department Center 09/12/2023 [id number] [facility] RAD ON None Family History Problem Relation Age of Onset Breast cancer Mother Lung cancer Father Colon cancer Paternal Grandfather Family Status - Relation Status Age at Mother Father Paternal Grandfather Level of Service:19684 [place] OFFICE/OUTPT VISIT,PROCEDURE ONLY Reason for Visit and Comments: Follow-up [406796] Normal [facility] Nursing Noteon 09-12-2023 Nursing Note Here with using walker for follow up.Appetite good states she just doesn't drink enough water. Energy normal for her rests frequently. States skin is doing well and continues to moisturize with aloe and coconut oil. Recent bone density test done. Has echo coming up and continues on Trazimera every 3 weeks. Normal [facility] Progress Noteon 09-12-2023 Progress Note RADIATION ONCOLOGY FOLLOW UP PATIENT: Madiha Perales DATE OF SERVICE: 09/12/2023 : 1945 AGE: 78 y.o. PRIMARY SITE AND HISTOPATHOLOGY: Left breast, grade 3 invasive ductal carcinoma, ER positive, NV positive, HER2 positive. STAGE: cT1b N0 M0, [...] the left breast. Biopsy was performed at [facility] on 01/28/2023. This revealed grade 3 invasive ductal carcinoma measuring at least 8 mm in dimension. ER positive at 100%, NV positive at 70% and HER2 positive at [...] The patient wears CPAP Parkinson disease Stroke ([facility]) 2009 Torn meniscus Uterine cancer [...] current facili (more content not included)... Normal [facility] DEXA BONE DENSITY AXIAL [facility] ETONon 09-05-2023 DEXA BONE DENSITY AXIAL SKELETON Patient [...] dual energy x-ray observed absorptiometry device - [employer] SARL W. Regions of interest were obtained through [...] Signed Date/Time: 09/05/2023 3:32 PM EDT Normal [facility] [employer] System [facility] DXA Skeletal system.axial Vi ews for bone [...] MD Electronically Signed Date/Time: 09/05/2023 3:32 PM [facility] [employer] RADIOLOGY SYSTEM Patient Name: MADIHA PERALES : 1945 Exam Date/Time: 09/05/2023 10:04 Procedure: DEXA BONE DENSITY AXIAL SKELETON Ordering Provider: ESCOBEDO TERESA Reason For Exam: screening for osteoporosis DEXA BONE DENSITOMETRY: CLINICAL INDICATION: Asymptomatic post-menopausal status COMPARISON: None TECHNIQUE: Quantitative bone mineral densitometry of the hip and lumbar spine was performed with a dual energy x-ray observed absorptiometry device - [employer] W. Regions of interest were obtained [...] Z-score: 2.2 Comparison from prior examination:N/A [facility] RADIOLOGY SYSTEM Brayden Green MD - 09/05/2023 Patient Name: [facility]ADIHA PERALES : 1945 [id number] Exam Date/Time: 09/05/2023 10:04 Procedure: DEXA BONE DENSITY AXIAL SKELETON Ordering Provider: ESCOBEDO TERESA Reason For Exam: screening for osteoporosis DEXA BONE DENSITOMETRY: CLINICAL INDICATION: Asymptomatic post-menopausal status COMPARISON: None TECHNIQUE: Quantitative bone mineral densitometry of the hip and lumbar spine was performed with a dual energy x-ray observed absorptiometry device - [employer] Horizon W. Regions of interest were obtained [...] Electronically Signed Date/Time: 09/05/2023 3:32 PM EDT [employer] Radiology Study observation (narrative) [facility] DXA Skeletal system.axial Vi ews for bone densityOrdered By: Brayden Green on 09-05-2023 [employer] Work Phone: CBC W Auto Differential pane l (Bld)on 09-02-2023 Basophils (Bld) [#/Vol] 0.0 10*3/uL 0.0 - 0.2 10*3/uL [employer] Basophils (Bld) [#/Vol] 0 10*3/uL 0.0 - 0.2 10*3/uL [employer] Basophils/100 WBC (Bld) 0.6 % 0.0 - 2.0 % [employer] Eosinophils (Bld) [#/Vol] 0.2 10*3/uL 0.0 - 0.5 10*3/uL [employer] Eosinophils/100 WBC (Bld) 3.1 % 0.0 - 6.0 % [employer] Erythrocyte distribution width (RBC) [Ratio] 13.8 % 11.5 - 15.0 % [employer] Hematocrit (Bld) [Volume fraction] 42.0 % 35.0 - 47.0 % [employer] Hematocrit (Bld) [Volume fraction] 42 % 35.0 - 47.0 % [facility] Hemoglobin (Bld) [Mass/Vol] 13.7 g/dL 11.7 - 16.0 g/dL [facility] Immature granulocytes (Bld) [#/Vol] 0.0 10*3/uL NINF - 0.1 10*3/uL [facility] Immature granulocytes (Bld) [#/Vol] 0 10*3/uL NINF - 0.1 10*3/uL [facility] Immature granulocytes/100 WBC (Bld) 0.4 % 0.0 - 2.0 % [facility] Interpretation and review of laboratory results Abnormal [facility] Lymphocytes (Bld) [#/Vol] 0.7 10*3/uL Low 1.0 - 4.3 10*3/uL [facility] Lymphocytes/100 WBC (Bld) 14.3 % Low 15.0 - 45.0 % [facility] MCH (RBC) [Entitic mass] 30.4 pg 26.0 - 34.0 pg [facility] MCHC (RBC) [Mass/Vol] 32.6 % 30.5 - 36.0 % [facility] MCV (RBC) [Entitic vol] 93.3 fL 77.0 - 99.0 fL [facility] Monocytes (Bld) [#/Vol] 0.4 10*3/uL 0.0 - 0.9 10*3/uL [facility] Monocytes/100 WBC (Bld) 8.4 % 5.0 - 13.0 % [facility] Neutrophils (Bld) [#/Vol] 3.7 10*3/uL 1.8 - 7.5 10*3/uL [facility] Neutrophils/100 WBC (Bld) 73.2 % 38.0 - 82.0 % [facility] Nucleated RBC/100 WBC (Bld) [Ratio] 0.0 % [facility] Nucleated RBC/100 WBC (Bld) [Ratio] 0 % [facility] [employer] Platelet mean volume (Bld) [Entitic vol] 9.2 fL 9.0 - 12.7 fL [facility] [employer] Comment on above: MPV is a calculated measurement using platelet volume ratio Platelets (Bld) [#/Vol] 188 10*3/uL 140 - 440 10*3/uL [facility] RBC (Bld) [#/Vol] 4.50 10*6/uL 3.80 - 5.2 0 10*6/uL [facility] RBC (Bld) [#/Vol] 4.5 10*6/uL 3.80 - 5.2 0 10*6/uL [facility] WBC (Bld) [#/Vol] 5.1 10*3/uL 3.6 - 10.7 10*3/uL [facility] CBC WITH AUTO DIFFERENTIALon 09-02-2023 Basophils (Bld) [#/Vol] 0.0 10*3/uL Normal 0.0-0.2 [facility] Comment on above: Performed By: #### L [id number] #### Administrative Coordinator: GRISELDA ROSALES ([phone]) [facility] [address] [place] [address] Basophils/100 WBC (Bld) 0.6 % Normal 0.0-2.0 S [facility] Comment on above: Performed By: #### L [id number] #### Administrative Coordinator: GRISELDA ROSALES ([phone]) [facility] [address] [place] [address] Eosinophils (Bld) [#/Vol] 0.2 10*3/uL Normal 0.0-0.5 [facility] Comment on above: Performed By: #### L [id number] #### Administrative Coordinator: GRISELDA ROSALES ([phone]) [facility] [address] [place] [address] Eosinophils/100 WBC (Bld) 3.1 % Normal 0.0-6.0 [facility] Comment on above: Performed By: #### L [id number] #### Administrative Coordinator: GRISELDA ROSALES ([phone]) [facility] [address] [place] [address] Erythrocyte distribution width (RBC) [Ratio] 13.8 % Normal 11.5-15.0 [facility] Comment on above: Performed By: #### L [id number] #### Administrative Coordinator: GRISELDA ROSALES ([id number]) [facility] [address] [place] [address] Hematocrit (Bld) [Volume fraction] 42.0 % Normal 35.0-47.0 [facility] Comment on above: Performed By: #### L [id number] #### Administrative Coordinator: GRISELDA ROSALES ([phone]) [facility] ([facility] [address] [place] [address] Hemoglobin (Bld) [Mass/Vol] 13.7 g/dL Normal 11.7-16.0 [facility] Comment on above: Performed By: #### L [id number] #### Administrative Coordinator: GRISELDA ROSALES ([id number]) [facility] ([facility]) [address] [place] [address] IMMATURE GRANS % 0.4 % Normal 0.0-2.0 [facility] Comment on above: Performed By: #### L [id number] #### Administrative Coordinator: GRISELDA ROSALES ([phone]) [facility] [address] [place] [address] IMMATURE GRANS ABSOLUTE 0.0 10*3/uL Normal <0.1 [facility] Comment on above: Performed By: #### L [id number] #### Administrative Coordinator: GRISELDA ROSALES ([id number]) [facility] ([facility] [address] [place] [address] Lymphocytes (Bld) [#/Vol] 0.7 10*3/uL Low 1.0-4.3 [facility] Comment on above: Performed By: #### L [id number] #### Administrative Coordinator: GRISELDA ROSALES ([phone]) [facility] [address] [place] [address] Lymphocytes/100 WBC (Bld) 14.3 % Low 15.0-45.0 [facility] Comment on above: Performed By: #### L [id number] #### Administrative Coordinator: GRISELDA ROSALES ([phone]) [facility] ([facility] [address] [place] [address] MCH (RBC) [Entitic mass] 30.4 pg Normal 26.0-34.0 [facility] Comment on above: Performed By: #### L [id number] #### Administrative Coordinator: GRISELDA ROSALES ([phone]) [facility] ([facility]) [address] [place] [address] MCHC 32.6 % Normal 30.5-36.0 [facility] Comment on above: Performed By: #### L [id number] #### Administrative Coordinator: GRISELDA ROSALES ([id number]) [facility] [address] [place] [address] MCV (RBC) [Entitic vol] 93.3 fL Normal 77.0-99.0 S [facility] Comment on above: Performed By: #### L [id number] #### Administrative Coordinator: GRISELDA ROSALES ([id number]) [facility] [address] [place] [address] Monocytes (Bld) [#/Vol] 0.4 10*3/uL Normal 0.0-0.9 [facility] Comment on above: Performed By: #### L [id number] #### Administrative Coordinator: GRISELDA ROSALES ([id number]) [facility] [address] [place] [address] Monocytes/100 WBC (Bld) 8.4 % Normal 5.0-13.0 [facility] Comment on above: Performed By: #### L [id number] #### Administrative Coordinator: GRISELDA ROSALES ([id number]) [facility] ([facility]) [address] [place] [address] NEUTROPHILS ABSOLUTE 3.7 10*3/uL Normal 1.8-7.5 [facility] Comment on above: Performed By: #### L [id number] #### Administrative Coordinator: GRISELDA ROSALES ([phone]) [facility] ([facility]) [address] [place] [address] [place] Neutrophils/100 WBC (Bld) 73.2 % Normal 38.0-82.0 [facility] Comment on above: Performed By: #### L [id number] #### Administrative Coordinator: GRISELDA ROSALES ([id number]) [facility] ([facility]) [address] [place] [address] NRBC 0.0 /100 WBCs Normal 0.0-2.0 [facility] Comment on above: Performed By: #### L [id number] #### Administrative Coordinator: GRISELDA ROSALES ([id number]) [facility] ([facility]) [address] [place] [address] Platelet mean volume (Bld) [Entitic vol] 9.2 fL Normal 9.0-12.7 [facility] Comment on above: Result Comment: MPV is a calculated measurement using platelet volume ratio Performed By: #### L [id number] #### Administrative Coordinator: GRISELDA ROSALES ([id number]) [facility] ([facility]) [address] [place] [address] Platelets (Bld) [#/Vol] 188 10*3/uL Normal 140-440 [facility] Comment on above: Performed By: #### L [id number] #### Administrative Coordinator: GRISELDA ROSALES ([id number]) [facility] ([facility]) [address] [place] [address] RBC (Bld) [#/Vol] 4.50 10*6/uL Normal 3.80-5.20 [facility] Comment on above: Performed By: #### L [id number] #### Administrative Coordinator: GRISELDA ROSALES ([id number]) [facility] ([facility]) [address] [place] [address] WBC (Bld) [#/Vol] 5.1 10*3/uL Normal 3.6-10.7 [facility] Comment on above: Performed By: #### L [id number] #### Administrative Coordinator: GRISELDA ROSALES ([id number]) [facility] ([facility]) [address] Comprehensive metabolic 2000 panelOrdered By: Annie Montalvo on 09-02-2023 Albumin [Mass/Vol] 3.3 g/dL 3.3 - 5.5 g/dL [facility] ALP [Catalytic activity/Vol] 75 U/L 42 - 141 U/L [facility] ALT [Catalytic activity/Vol] 16 U/L 10 - 47 U/L [facility] Anion gap [Moles/Vol] 8.00 mmol/L -4.00 - 12.00 mmol/L [facility] Anion gap [Moles/Vol] 8 mmol/L -4.00 - 12.00 mmol/L [facility] AST [Catalytic activity/Vol] 29 U/L 11 - 38 U/L [facility] Bilirubin [Mass/Vol] 0.6 mg/dL 0.2 - 1 .6 mg/dL [facility] Calcium [Mass/Vol] 9.3 mg/dL 8.0 - 10. 3 mg/dL [facility] Chloride [Moles/Vol] 108 mmol/L [facility] CO2 [Moles/Vol] 27 mmol/L [facility] lth GFR/1.73 sq M.predicted MDRD (S/P/Bld) [Vol rate/Area] 76.0 mL/min/{1.73_m2} - [facility] th GFR/1.73 sq M.predicted MDRD (S/P/Bld) [Vol rate/Area] 76 mL/min/{1.73_m2} [facility] Glucose [Mass/Vol] 132 mg/dL High 73 - 118 mg/dL [facility] Interpretation and review of laboratory results Abnormal [facility] Potassium [Moles/Vol] 3.8 mmol/L [facility] Protein [Mass/Vol] 6.4 g/dL 6.4 - 8.1 g/dL [facility] Sodium [Moles/Vol] 143 mmol/L [facility] Urea nitrogen [Mass/Vol] 15 mg/dL 7 - 22 mg/dL [facility] Urea nitrogen/Creatinine [Mass ratio] 0.8 mg/dL 0.6 - 1.2 mg/dL [facility] Office Visiton 09-02-2023 Follow-up visit [id number] Madiha Perales 1945 F Date Provider Department Center 09/02/2023 [id number] ESCOBEDO [facility] ONC None Family History Problem Relation Age of Onset Breast cancer Mother Lung cancer Father Colon cancer Paternal Grandfather Family Status - Relation Status Age at Mother Father Paternal Grandfather Level of Service:24374 [place] OFFICE/OUTPATIENT ESTABLISHED MOD MDM 30 MIN Reason for Visit and Comments: Follow-up [541737] Normal [facility] Progress Noteon 09-02-2023 Progress Note Patient arrived [...] cath intact. Patient ambulatory upon discharge. Normal [facility] Progress Note Hematology/Oncology Office Visit Oncology History: 1) stage 1A left breast cancer, invasive ductal carcinoma grade 3. ER+ NV+ HER2+. cT1b N0 M0; pT1c N0 M0, diagnosed 01/28/23. - Patient is a 78 yo F who presented with an abnormal screening mammogram of the upper outer quadrant of the left breast on 11/27/22. Diagnostic imaging and ultrasound were performed on 01/21/2023: a 0.9 x 0.9 x 1 cm irregular mass in the left breast. Biopsy was performed at [facility] on 01/28/2023 confirming grade 3 invasive ductal carcinoma ER positive 100%, NV positive 70% and HER2 positive at 3+. The patient underwent lumpectomy and sentinel node removal on 02/18/[address] Choi at [facility]: pathology revealed grade 3 invasive ductal carcinoma measuring 1.9 cm. There was focal DCIS and extensive lymphovascular invasion. Margins were negative for invasive and in situ component at greater than 2 mm. 6 axillary nodes were removed: 5 sentinel and 1 nonsentinel. All were negative.Pathological ly staged T1CN0. - she was referred to [facility] for medical and radiation oncology. Her case [...] The patient wears CPAP Parkinson disease Stroke ([facility]) 2009 Torn meniscus Uterine cancer ([facility]/HCC) ([facility]) 2005 Past Surgical History: Procedure [...] breast in female, estrogen receptor positive (HCC) ([facility]) 03/18/2023 Edema of both lower [...] mouth in the (more content not included)... Normal [facility] 81on 08-12-2023 81 RADIATION ONCOLOGY TREATMENT SUMMARY PATIENT: Madiha Perales DATE OF SERVICE: 08/12/2023 : 1945 AGE: 79 y.o. PRIMARY SITE AND HISTOPATHOLOGY: Left breast, grade 3 invasive ductal carcinoma, ER positive, NV positive, HER2 positive. STAGE: cT1b N0 M0, [...] the left breast. Biopsy was performed at [facility] on 01/28/2023. This revealed grade 3 invasive ductal carcinoma measuring at least 8 mm in dimension. ER positive at 100%, NV positive at 70% and HER2 positive at [...] appointment was made. Vicki Diego MD [facility] Cancer [place] Department of Radiation Oncology is an Accredited Facility of the [employer] (ACR). This document was [...] addressed to the provider for clarification. Normal [facility] CBC W Auto Differential pane l (Bld)Ordered By: Radha Rain on 08-12-2023 Basophils (Bld) [#/Vol] 0.0 10*3/uL 0.0 - 0.2 10*3/uL [facility] Basophils (Bld) [#/Vol] 0 10*3/uL 0.0 - 0.2 10*3/uL [facility] Basophils/100 WBC (Bld) 0.4 % 0.0 - 2.0 % [facility] Eosinophils (Bld) [#/Vol] 0.1 10*3/uL 0.0 - 0.5 10*3/uL [facility] Eosinophils/100 WBC (Bld) 2.1 % 1.0 - 6.0 % [facility] Erythrocyte distribution width (RBC) [Ratio] 14.0 % 11.5 - 14.5 % [facility] Erythrocyte distribution width (RBC) [Ratio] 14 % 11.5 - 14.5 % [facility] Hematocrit (Bld) [Volume fraction] 41.2 % 35.0 - 47.0 % [facility] Hemoglobin (Bld) [Mass/Vol] 13.6 g/dL 11.7 - 16.0 g/dL [facility] Immature granulocytes (Bld) [#/Vol] 0.0 10*3/uL NINF - 0.0 10*3/uL [facility] Immature granulocytes (Bld) [#/Vol] 0 10*3/uL NINF - 0.0 10*3/uL [facility] Immature granulocytes/100 WBC (Bld) 0.6 % High NINF - 0.0 % [facility] Interpretation and review of laboratory results Abnormal [facility] Lymphocytes (Bld) [#/Vol] 0.9 10*3/uL Low 1.0 - 4.3 10*3/uL [facility] Lymphocytes/100 WBC (Bld) 12.6 % Low 20.0 - 40.0 % [facility] MCH (RBC) [Entitic mass] 30.7 pg 26.0 - 34.0 pg [facility] MCHC (RBC) [Mass/Vol] 33.0 % 32.0 - 36.0 % [facility] MCHC (RBC) [Mass/Vol] 33 % 32.0 - 36.0 % [facility] MCV (RBC) [Entitic vol] 93.0 fL 80.0 - 98.0 fL [facility] MCV (RBC) [Entitic vol] 93 fL 80.0 - 98.0 fL [facility] Monocytes (Bld) [#/Vol] 0.5 10*3/uL 0.0 - 0.8 10*3/uL [facility] Monocytes/100 WBC (Bld) 6.7 % 2.0 - 10.0 % [facility] Neutrophils (Bld) [#/Vol] 5.2 10*3/uL 1.8 - 7.0 10*3/uL [facility] Neutrophils/100 WBC (Bld) 77.6 % 40.0 - 80.0 % [facility] Platelet mean volume (Bld) [Entitic vol] 9.9 fL 7.4 - 12.4 fL [facility] Comment on above: MPV is a calculated measurement using platelet volume ratio Platelets (Bld) [#/Vol] 224 10*3/uL 140 - 440 10*3/uL [facility] RBC (Bld) [#/Vol] 4.43 10*6/uL 3.8 - 5.20 10*6/uL [facility] WBC (Bld) [#/Vol] 6.7 10*3/uL 3.6 - 10.7 10*3/uL [facility] CBC WITH AUTO DIFFERENTIALon 08-12-2023 Basophils (Bld) [#/Vol] 0.0 10*3/uL Normal 0.0-0.2 [facility] Comment on above: Performed By: #### L [id number] ####Administrative Coordinator: GRISELDA ROSALES ([phone])[facility])[address] [place] [address] Basophils/100 WBC (Bld) 0.4 % Normal 0.0-2.0 [facility] Comment on above: Performed By: #### L [id number] ####Administrative Coordinator: GRISELDA HAYSADALGISA ([phone])[facility] ([facility])[address] [place] [address] Eosinophils (Bld) [#/Vol] 0.1 10*3/uL Normal 0.0-0.5 [facility] Comment on above: Performed By: #### L [id number] ####Administrative Coordinator: GRISELDA SIMMONSJAKE ([phone])[facility] ([facility])[address] [place] [address] Eosinophils/100 WBC (Bld) 2.1 % Normal 1.0-6.0 [facility] Comment on above: Performed By: #### L [id number] ####Administrative Coordinator: GRISELDA SIMMONSJAKE ([phone])[facility] ([facility])[address] [place] [address] Erythrocyte distribution width (RBC) [Ratio] 14.0 % Normal 11.5-14.5 [facility] Comment on above: Performed By: #### L [id number] ####Administrative Coordinator: GRISELDA ROSALES ([phone])[facility] ([facility])[address] [place] [address] ERYTHROCYTE MEAN CORPUSCULAR HEMOGLOBIN CONCENTRATION (G/DL) BY AUTOMATED 33.0 % Normal 32.0-36.0 [facility] Comment on above: Performed By: #### L [id number] ####Administrative Coordinator: GRISELDA ROSALES ([id number])[facility] ([facility])[address] [place] [address] Hematocrit (Bld) [Volume fraction] 41.2 % Normal 35.0-47.0 [facility] Comment on above: Performed By: #### L [id number] ####Administrative Coordinator: GRISELDA HAYSADALGISA ([phone])[facility] ([facility])[address] [place] [address] Hemoglobin (Bld) [Mass/Vol] 13.6 g/dL Normal 11.7-16.0 [facility] Comment on above: Performed By: #### L [id number] ####Administrative Coordinator: GRISELDA SIMMONSTigistADALGISA ([phone])[facility] ([facility])[address] [place] [address] IMMATURE GRANS (10*3/UL) IN BLOOD BY AUTOMATED COUNT 0.0 10*3/uL Normal <=0.0 [facility] Comment on above: Performed By: #### L [id number] ####Administrative Coordinator: GRISELDA CONNIE ([phone])[facility] ([facility])[address] [place] [address] IMMATURE GRANS/100 LEUKOCYTES IN BLOOD BY AUTOMATED COUNT 0.6 % High <=0.0 [facility] Comment on above: Performed By: #### L [id number] ####Administrative Coordinator: GRISELDA CONNIE ([id number])[facility] ([facility])[address] [place] [address] Lymphocytes (Bld) [#/Vol] 0.9 10*3/uL Low 1.0-4.3 [facility] Comment on above: Performed By: #### L [id number] ####Administrative Coordinator: GRISELDA CONNIE ([phone])[facility] ([facility])[address] [place] [address] Lymphocytes/100 WBC (Bld) 12.6 % Low 20.0-40.0 [facility] Comment on above: Performed By: #### L [id number] ####Administrative Coordinator: GRISELDA CONNIE ([id number])[facility] ([facility])[address] [place] [address] MCH (RBC) [Entitic mass] 30.7 pg Normal 26.0-34.0 [facility] Comment on above: Performed By: #### L [id number] ####Administrative Coordinator: GRISELDA CONNIE ([id number])[facility] ([facility])[address] [place] [address] MCV (RBC) [Entitic vol] 93.0 fL Normal 80.0-98.0 S [facility] Comment on above: Performed By: #### L [id number] ####Administrative Coordinator: GRISELDA ROSALES ([phone])[facility] ([facility])[address] [place] [address] Monocytes (Bld) [#/Vol] 0.5 10*3/uL Normal 0.0-0.8 [facility] Comment on above: Performed By: #### L [id number] ####Administrative Coordinator: GRISELDA ROSALES ([id number])[facility] ([facility])[address] [place] [address] Monocytes/100 WBC (Bld) 6.7 % Normal 2.0-10.0 [facility] Comment on above: Performed By: #### L [id number] ####Administrative Coordinator: GRISELDA ROSALES ([phone])[facility] ([facility])[address] [place] [address] Neutrophils (Bld) [#/Vol] 5.2 10*3/uL Normal 1.8-7.0 [facility] Comment on above: Performed By: #### L [id number] ####Administrative Coordinator: GRISELDA ROSALES ([id number])[facility])[address] [place] [address] Neutrophils/100 WBC (Bld) 77.6 % Normal 40.0-80.0 [facility] Comment on above: Performed By: #### L [id number] ####Administrative Coordinator: GRISELDA ROSALES ([phone])[facility])[address] [place] [address] Platelet mean volume (Bld) [Entitic vol] 9.9 fL Normal 7.4-12.4 [facility] Comment on above: Result Comment: MPV is a calculated measurement using platelet volume ratio Performed By: #### L [id number] ####Administrative Coordinator: GRISELDA ROSALES ([phone])[facility] ([facility])[address] [place] [address] Platelets (Bld) [#/Vol] 224 10*3/uL Normal 140-440 [facility] Comment on above: Performed By: #### L [id number] ####Administrative Coordinator: GRISELDA ROSALES ([id number])[facility])[address] [place] [address] RBC (Bld) [#/Vol] 4.43 10*6/uL Normal 3.8-5.20 [facility] Comment on above: Performed By: #### L [id number] ####Administrative Coordinator: GRISELDA ROSALES ([phone])[facility])[address] [place] [address] WBC (Bld) [#/Vol] 6.7 10*3/uL Normal 3.6-10.7 [facility] Comment on above: Performed By: #### L [id number] ####Administrative Coordinator: GRISELDA ROSALES ([phone])[facility] ([facility])[address] [place] [address] COMPREHENSIVE METABOLIC PANE L, WHOLE BLOODon 08-12-2023 Albumin [Mass/Vol] 3.3 g/dL Normal 3.3-5.1 [facility] Comment on above: Performed By: #### L [id number] ####Administrative Coordinator: GRISELDA ROSALES ([phone])[facility] [place] [address] ALP [Catalytic activity/Vol] 77 U/L Normal 28-108 [facility] Comment on above: Performed By: #### L [id number] ####Administrative Coordinator: GRISELDA ROSALES ([phone])[facility] [place] [address] ALT [Catalytic activity/Vol] 29 U/L Normal 14-54 [facility] Comment on above: Performed By: #### L [id number] ####Administrative Coordinator: GRISELDA ROSALES ([phone])[facility] ([facility])[address] [place] [id number] [place] [address] ANION GAP, WHOLE BLOOD-ANIPI 4.00 mmol/L Normal 3.00-13.00 [facility] Comment on above: Performed By: #### L [id number] ####Administrative Coordinator: GRISELDA ROSALES ([id number])[facility] ([facility])[address] [place] [address] AST [Catalytic activity/Vol] 38 U/L Normal 15-41 [facility] Comment on above: Performed By: #### L [id number] ####Administrative Coordinator: GRISELDA ROSALES ([phone])[facility] ([facility])[address] [place] [address] Bilirubin [Mass/Vol] 0.6 mg/dL Normal 0.0-1.3 [facility] Comment on above: Performed By: #### L [id number] ####Administrative Coordinator: GRISELDA ROSALES ([phone])[facility] ([facility])[address] [place] [address] Calcium [Mass/Vol] 9.0 mg/dL Normal 8.1-10.1 [facility] Comment on above: Performed By: #### L [id number] ####Administrative Coordinator: GRISELDA ROSALES ([id number])[facility] ([facility])[address] [place] [address] [place] Chloride [Moles/Vol] 108 mmol/L Normal 98-114 [facility] Comment on above: Performed By: #### L [id number] ####Administrative Coordinator: GRISELDA ROSALES ([phone])[facility] ([facility])[address] [place] [address] CO2 [Moles/Vol] 28 mmol/L Normal 21-29 [facility] Comment on above: Performed By: #### L [id number] ####Administrative Coordinator: GRISELDA ROSALES ([id number])[facility] ([facility])[address] [place] [address] Creatinine [Mass/Vol] 0.7 mg/dL Normal 0.6-1.4 [facility] Comment on above: Performed By: #### L [id number] ####Administrative Coordinator: GRISELDA ROSALES ([phone])[facility] ([facility])[address] [place] [address] EGFR, WHOLE BLOOD-THUY 89.2 mL/min/1.73m*2 Normal >60.0 [facility] Comment on above: Result Comment: Calc ulation based on the Chronic Kidney Disease Epidemiology Collaboration (CKD-EPI) equation refit without adjustment for race Performed By: #### L [id number] ####Administrative Coordinator: GRISELDA ROSALES ([id number])[facility] ([facility])[address] [place] [address] Glucose [Mass/Vol] 128 mg/dL High 67-100 [facility] Comment on above: Performed By: #### L [id number] ####Administrative Coordinator: GRISELDA ROSALES ([id number])[facility] ([facility])[address] [place] [address] Potassium [Moles/Vol] 4.5 mmol/L Normal 3.4-5.1 [facility] Comment on above: Performed By: #### L [id number] ####Administrative Coordinator: GRISELDA ROSALES ([id number])[facility] (ML[facility])[address] [place] [address] Protein [Mass/Vol] 6.5 g/dL Normal 6.0-8.1 [facility] Comment on above: Performed By: #### L [id number] ####Administrative Coordinator: GRISELDA ROSALES ([id number])[facility] (ML[facility])[address] [place] [address] Sodium [Moles/Vol] 140 mmol/L Normal 133-145 [facility] Comment on above: Performed By: #### L [id number] ####Administrative Coordinator: GRISELDA ROSALES ([id number])[facility] ([facility])[address] [place] [address] Urea nitrogen [Mass/Vol] 17 mg/dL Normal - [facility] Comment on above: Performed By: #### L [id number] ####Administrative Coordinator: GRISELDA ROSALES ([id number])[facility] ([facility])[address] [place] [address] Progress Noteon 08-12-2023 Progress Note Patient arrived for delayed cycle 4 Q 3 week Trazimera. Patient still has cough on ATB. Reports feels well. Encouraged to call PCP to follow up with cough. PIV inserted, blood for CBC and CMP obtained. Infusion complete. PIV d/c'd angio cath intact. Patient ambulatory upon discharge. Normal [facility] CBC W Auto Differential pane l (Bld)Ordered By: Radha Rain on 08-05-2023 Basophils (Bld) [#/Vol] 0.1 10*3/uL 0.0 - 0.2 10*3/uL [facility] Basophils/100 WBC (Bld) 0.8 % 0.0 - 2.0 % [facility] Eosinophils (Bld) [#/Vol] 0.2 10*3/uL 0.0 - 0.5 10*3/uL [facility] Eosinophils/100 WBC (Bld) 3.7 % 1.0 - 6.0 % [facility] Erythrocyte distribution width (RBC) [Ratio] 14.3 % 11.5 - 14.5 % [facility] Hematocrit (Bld) [Volume fraction] 41.6 % 35.0 - 47.0 % [facility] Hemoglobin (Bld) [Mass/Vol] 14.0 g/dL 11.7 - 16.0 g/dL [facility] [employer] Immature granulocytes (Bld) [#/Vol] 0.0 10*3/uL NINF - 0.0 10*3/uL [facility] [employer] Immature granulocytes/100 WBC (Bld) 0.3 % High NINF - 0.0 % [facility] Interpretation and review of laboratory results Abnormal [facility] Lymphocytes (Bld) [#/Vol] 0.8 10*3/uL Low 1.0 - 4.3 10*3/uL [facility] Lymphocytes/100 WBC (Bld) 12.3 % Low 20.0 - 40.0 % [facility] MCH (RBC) [Entitic mass] 31.3 pg 26.0 - 34.0 pg [facility] MCHC (RBC) [Mass/Vol] 33.7 % 32.0 - 36.0 % [facility] MCV (RBC) [Entitic vol] 93.1 fL 80.0 - 98.0 fL [facility] Monocytes (Bld) [#/Vol] 0.5 10*3/uL 0.0 - 0.8 10*3/uL [facility] Monocytes/100 WBC (Bld) 8.3 % 2.0 - 10.0 % [facility] Neutrophils (Bld) [#/Vol] 4.9 10*3/uL 1.8 - 7.0 10*3/uL [facility] Neutrophils/100 WBC (Bld) 74.6 % 40.0 - 80.0 % [facility] Platelet mean volume (Bld) [Entitic vol] 9.3 fL 7.4 - 12.4 fL [facility] Comment on above: MPV is a calculated measurement using platelet volume ratio Platelets (Bld) [#/Vol] 205 10*3/uL 140 - 440 10*3/uL [facility] RBC (Bld) [#/Vol] 4.47 10*6/uL 3.8 - 5.20 10*6/uL [facility] WBC (Bld) [#/Vol] 6.5 10*3/uL 3.6 - 10.7 10*3/uL [facility] US THYROIDon 07-31-2023 US THYROID Interpreted By: Kayode Beal, STUDY: US THYROID; 07/31/2023 1:58 pm INDICATION: Signs/Symptoms:LEFT SIDETHYROID NODULES, PRESENT FOR YEARS, SEEN AGAIN INCIDENTALLY ON CT OF CHEST. COMPARISON: None. ACCESSION NUMBER(S): [id number] ORDERING CLINICIAN: MARIE DEVI TECHNIQUE: Multiple ultrasonographic [...] are based on the recommendations of the [place] [employer] TI-RADS grading system. ACR [...] Kayode Beal 08/01/2023 8:10 PM Dictation workstation: [id number] [facility] US Thyroid glandon 4 These [...] 15.1 % High 11.5 - 14.5 % [facility] Hematocrit (Bld) [Volume fraction] 40.5 % 35.0 - 47.0 % [facility] Hemoglobin (Bld) [Mass/Vol] 13.4 g/dL 11.7 - 16.0 g/dL [facility] Immature granulocytes (Bld) [#/Vol] 0.0 10*3/uL NINF - 0.0 10*3/uL [facility] Immature granulocytes (Bld) [#/Vol] 0 10*3/uL NINF - 0.0 10*3/uL [facility] Immature granulocytes/100 WBC (Bld) 0.2 % High NINF - 0.0 % [facility] Interpretation and review of laboratory results Abnormal [facility] Lymphocytes (Bld) [#/Vol] 1.1 10*3/uL 1.0 - 4.3 10*3/uL [facility] Lymphocytes/100 WBC (Bld) 18.7 % Low 20.0 - 40.0 % [facility] MCH (RBC) [Entitic mass] 31.1 pg 26.0 - 34.0 pg [facility] MCHC (RBC) [Mass/Vol] 33.1 % 32.0 - 36.0 % [facility] MCV (RBC) [Entitic vol] 94.0 fL 80.0 - 98.0 fL [facility] MCV (RBC) [Entitic vol] 94 fL 80.0 - 98.0 fL [facility] Monocytes (Bld) [#/Vol] 0.4 10*3/uL 0.0 - 0.8 10*3/uL [facility] Monocytes/100 WBC (Bld) 6.4 % 2.0 - 10.0 % [facility] Neutrophils (Bld) [#/Vol] 4.3 10*3/uL 1.8 - 7.0 10*3/uL [facility] Neutrophils/100 WBC (Bld) 71.8 % 40.0 - 80.0 % [facility] Platelet mean volume (Bld) [Entitic vol] 9.3 fL 7.4 - 12.4 fL [facility] Comment on above: MPV is a calculated measurement using platelet volume ratio Platelets (Bld) [#/Vol] 229 10*3/uL 140 - 440 10*3/uL [facility] RBC (Bld) [#/Vol] 4.31 10*6/uL 3.8 - 5.20 10*6/uL [facility] WBC (Bld) [#/Vol] 5.9 10*3/uL 3.6 - 10.7 10*3/uL [facility] Comprehensive metabolic 1998 panelon 07-15-2023 Albumin [Mass/Vol] 4.0 g/dL 3.5 - 5.0 g/dL [facility] Albumin [Mass/Vol] 4 g/dL 3.5 - 5.0 g/dL [facility] ALP [Catalytic activity/Vol] 80 U/L 38 - 126 U/L [facility] ALT [Catalytic activity/Vol] 14 U/L 0 - 34 U/L [facility] Anion gap [Moles/Vol] 6 mmol/L 3 - 13 mmol/L [facility] AST [Catalytic activity/Vol] 43 U/L 15 - 46 U/L [facility] Bilirubin [Mass/Vol] 0.7 mg/dL 0.2 - 1 .3 mg/dL [facility] Calcium [Mass/Vol] 8.8 mg/dL 8.4 - 10. 4 mg/dL [facility] Chloride [Moles/Vol] 106 mmol/L 98 - 10 7 mmol/L [facility] CO2 [Moles/Vol] 26 mmol/L 22 - 30 mmol/L [facility] Creatinine [Mass/Vol] 0.56 mg/dL 0.52 - 1.04 mg/dL [facility] GFR/1.73 sq M.predicted MDRD (S/P/Bld) [Vol rate/Area] - PINF [facility] Comment on above: Calculation based on the Chronic Kidney Disease Epidemiology Collaboration (CKD-EPI) equation refit without adjustment for race Glucose [Mass/Vol] 160 mg/dL High 70 - 100 mg/dL [facility] Interpretation and review of laboratory results Abnormal [facility] Potassium [Moles/Vol] 4.0 mmol/L 3.5 - 5.1 mmol/L [facility] Potassium [Moles/Vol] 4 mmol/L 3.5 - 5.1 mmol/L [facility] Protein [Mass/Vol] 7.1 g/dL 6.3 - 8.2 g/dL [facility] Sodium [Moles/Vol] 138 mmol/L 135 - 145 mmol/L [facility] [employer] Urea nitrogen [Mass/Vol] 19 mg/dL High 7 - 17 mg/dL [facility] US Heart TransthoracicOrdere d By: Philippe Hoskins on 06-26-2023 Aortic Root 3.2 cm [facility] Work Phone: AR Max Velocity PISA 3.6 m/s [facility] Work Phone: [phone] AR PHT 443.0 ms [facility] Work Phone: Ascending Aorta 3.4 cm [facility] Hea lth Work Phone: AV Area by Peak Velocity 2.6 cm2 [facility] Work Phone: [phone] AV Area by VTI 2.6 cm2 [facility] th Work Phone: AV AT 74.22 ms [facility] Work Phone: AV Mean Gradient 3 [facility] Work Phone: AV Mean Velocity 0.8 m/s [facility] Work Phone: [phone] AV Peak Gradient 7 mmHg [facility] Work Phone: AV Peak Velocity 1.4 m/s [facility] Work Phone: AV Velocity Ratio 0.71 [facility] Work Phone: AV VTI 24.0 cm [facility] Work Phone: E/E' Lateral 8.50 [facility] Work Phone: E/E' Ratio (Averaged) 8.50 [facility] Work Phone: E/E' Septal 8.50 [facility] Work Phone: [phone] EF BP 62 % 55 - 100 % [facility] Work Phone: [phone] Fractional Shortening 2D 33 % 28 - 44 % [facility] Work Phone: [phone] Global Longitudinal Strain -19.4 % [facility] Work Phone: [phone] Global Longitudinal Strain -21.0 % [facility] Work Phone: Global Longitudinal Strain -13.9 % [facility] [employer] Work Phone: Global Longitudinal Strain -18.1 % [facility] [employer] Work [phone] Interpretation and review of laboratory results Abnormal [facility] [employer] Work Phone: IVC Diameter 1.3 cm [facility] [employer] Work Phone: IVSd 1.1 cm Abnormal 0.6 - 0.9 cm [facility] [employer] Work Phone: LA Diameter 3.2 cm [facility] [employer] Work Phone: LA Volume 2C 63 mL Abnormal 22 - 52 mL [facility] Work Phone: LA Volume 4C 51 mL 22 - 52 mL [facility] [employer] Work Phone: LA Volume A/L 61 mL [facility] h Work Phone: LA Volume BP 58 mL Abnormal 22 - 52 mL [facility] [employer] Work Phone: LA/AO Root Ratio 1.00 [facility] Work Phone: LV E' Lateral Velocity 6 cm/s [facility] Work Phone: LV E' Septal Velocity 6 cm/s [facility] Work Phone: LV EDV A4C 78 mL [facility] [employer] Work Phone: LV Ejection Fraction A4C 62 % [facility] [employer] Work Phone: LV ESV A4C 30 mL [facility] [employer] Work Phone: LV Mass 2D 188.1 g Abnormal 67 - 162 g [facility] [employer] Work Phone: LV RWT Ratio 0.41 [facility] [employer] Work Phone: LVIDd 4.9 cm 3.9 - 5.3 cm [facility] [employer] Work Phone: LVIDs 3.3 cm [facility] [employer] Work Phone: LVOT Area 3.5 cm2 [facility] [employer] Work Phone: LVOT Cardiac Output 5.6 liter/mi nut e [facility] [employer] Work Phone: LVOT Diameter 2.1 cm [facility] [employer] Work Phone: LVOT Mean Gradient 2 mmHg [facility] [employer] Work Phone: [phone] LVOT Peak Gradient 4 mmHg [facility] [employer] Work Phone: LVOT Peak Velocity 1.0 m/s [employer] Work Phone: [phone] LVOT SV 63.0 ml [facility] [employer] Work Phone: LVOT VTI 18.2 cm [facility] [employer] Work Phone: LVOT:AV VTI Index 0.76 [facility] [employer] Work Phone: [phone] LVPWd 1.0 cm Abnormal 0.6 - 0.9 cm [facility] [employer] Work Phone: MV A Velocity 0.73 m/s [facility] [employer] Work Phone: MV E Velocity 0.51 m/s [facility] [employer] Work Phone: MV E Wave Deceleration Time 187.8 ms [facility] [employer] Work Phone: [phone] MV E/A 0.70 [facility] [employer] Work Phone: [phone] RA Area 4C 52.0 mL [facility] [employer] Work Phone: [phone] RA Area 4C 50.1 mL [facility] [employer] Work Phone: RV Basal Dimension 3.5 cm [facility] [employer] Work Phone: RV Free Wall Peak S' 23 cm/s [facility] [employer] Work Phone: RV Mid Dimension 2.7 cm [facility] Work Phone: [phone] TAPSE 2.6 cm 1.7 cm [facility] [employer] Work Phone: [facility] [employer] Work Phone: Heart Transthoracicon Left Ventricle: Left [...] [#/Vol] 0.0 10*3/uL 0.0 - 0.2 10*3/uL [employer] Basophils (Bld) [#/Vol] 0 10*3/uL 0.0 - 0.2 10*3/uL [employer] Basophils/100 WBC (Bld) 0.6 % 0.0 - 2.0 % [employer] Eosinophils (Bld) [#/Vol] 0.3 10*3/uL 0.0 - 0.5 10*3/uL [employer] Eosinophils/100 WBC (Bld) 3.8 % 1.0 - 6.0 % [employer] Erythrocyte distribution width (RBC) [Ratio] 16.3 % High 11.5 - 14.5 % [employer] Hematocrit (Bld) [Volume fraction] 39.4 % 35.0 - 47.0 % [employer] Hemoglobin (Bld) [Mass/Vol] 12.9 g/dL 11.7 - 16.0 g/dL [employer] Immature granulocytes (Bld) [#/Vol] 0.0 10*3/uL NINF - 0.0 10*3/uL [facility] Immature granulocytes (Bld) [#/Vol] 0 10*3/uL NINF - 0.0 10*3/uL [facility] Immature granulocytes/100 WBC (Bld) 0.4 % High NINF - 0.0 % [facility] Interpretation and review of laboratory results Abnormal [facility] Lymphocytes (Bld) [#/Vol] 1.2 10*3/uL 1.0 - 4.3 10*3/uL [facility] Lymphocytes/100 WBC (Bld) 17.2 % Low 20.0 - 40.0 % [facility] MCH (RBC) [Entitic mass] 31.2 pg 26.0 - 34.0 pg [facility] MCHC (RBC) [Mass/Vol] 32.7 % 32.0 - 36.0 % [facility] MCV (RBC) [Entitic vol] 95.2 fL 80.0 - 98.0 fL [facility] Monocytes (Bld) [#/Vol] 0.5 10*3/uL 0.0 - 0.8 10*3/uL [facility] Monocytes/100 WBC (Bld) 7.4 % 2.0 - 10.0 % [facility] Neutrophils (Bld) [#/Vol] 4.9 10*3/uL 1.8 - 7.0 10*3/uL [facility] Neutrophils/100 WBC (Bld) 70.6 % 40.0 - 80.0 % [facility] Platelet mean volume (Bld) [Entitic vol] 9.5 fL 7.4 - 12.4 fL [facility] Comment on above: MPV is a calculated measurement using platelet volume ratio Platelets (Bld) [#/Vol] 204 10*3/uL 140 - 440 10*3/uL [facility] RBC (Bld) [#/Vol] 4.14 10*6/uL 3.8 - 5.20 10*6/uL [facility] WBC (Bld) [#/Vol] 6.9 10*3/uL 3.6 - 10.7 10*3/uL [facility] Comprehensive metabolic 1998 panelon 06-24-2023 Albumin [Mass/Vol] 3.9 g/dL 3.5 - 5.0 g/dL [facility] ALP [Catalytic activity/Vol] 110 U/L 38 - 126 U/L [facility] ALT [Catalytic activity/Vol] 37 U/L High 0 - 34 U/L [facility] Anion gap [Moles/Vol] 6 mmol/L 3 - 13 mmol/L [facility] AST [Catalytic activity/Vol] 40 U/L 15 - 46 U/L [facility] Bilirubin [Mass/Vol] 0.6 mg/dL 0.2 - 1 .3 mg/dL [facility] Calcium [Mass/Vol] 8.9 mg/dL 8.4 - 10. 4 mg/dL [facility] Chloride [Moles/Vol] 107 mmol/L 98 - 10 7 mmol/L [facility] CO2 [Moles/Vol] 25 mmol/L 22 - 30 mmol/L [facility] Creatinine [Mass/Vol] 0.58 mg/dL 0.52 - 1.04 mg/dL [facility] GFR/1.73 sq M.predicted MDRD (S/P/Bld) [Vol rate/Area] - PINF [facility] Comment on above: Calculation based on the Chronic Kidney Disease Epidemiology Collaboration (CKD-EPI) equation refit without adjustment for race Glucose [Mass/Vol] 136 mg/dL High 70 - 100 mg/dL [facility] Interpretation and review of laboratory results Abnormal [facility] Potassium [Moles/Vol] 3.9 mmol/L 3.5 - 5.1 mmol/L [facility] Protein [Mass/Vol] 7.0 g/dL 6.3 - 8.2 g/dL [facility] Protein [Mass/Vol] 7 g/dL 6.3 - 8.2 g/dL [facility] Sodium [Moles/Vol] 139 mmol/L 135 - 145 mmol/L [facility] Urea nitrogen [Mass/Vol] 18 mg/dL High 7 - 17 mg/dL [facility] CBC W Auto Differential pane l (Bld)Ordered By: Radha Rain on 06-03-2023 Basophils (Bld) [#/Vol] 0.1 10*3/uL 0.0 - 0.2 10*3/uL [facility] Basophils/100 WBC (Bld) 0.9 % 0.0 - 2.0 % [facility] Eosinophils (Bld) [#/Vol] 0.1 10*3/uL 0.0 - 0.5 10*3/uL [facility] Eosinophils/100 WBC (Bld) 0.9 % Low 1.0 - 6.0 % [facility] Erythrocyte distribution width (RBC) [Ratio] 15.8 % High 11.5 - 14.5 % [facility] Hematocrit (Bld) [Volume fraction] 38.2 % 35.0 - 47.0 % [facility] Hemoglobin (Bld) [Mass/Vol] 12.9 g/dL 11.7 - 16.0 g/dL [facility] Immature granulocytes (Bld) [#/Vol] 0.1 10*3/uL High NINF - 0.0 10*3/uL [facility] Immature granulocytes/100 WBC (Bld) 1.9 % High NINF - 0.0 % [facility] Interpretation and review of laboratory results Abnormal [facility] Lymphocytes (Bld) [#/Vol] 0.4 10*3/uL Low 1.0 - 4.3 10*3/uL [facility] Lymphocytes/100 WBC (Bld) 6.2 % Low 20.0 - 40.0 % [facility] MCH (RBC) [Entitic mass] 31.2 pg 26.0 - 34.0 pg [facility] MCHC (RBC) [Mass/Vol] 33.8 % 32.0 - 36.0 % [facility] MCV (RBC) [Entitic vol] 92.5 fL 80.0 - 98.0 fL [facility] Monocytes (Bld) [#/Vol] 0.5 10*3/uL 0.0 - 0.8 10*3/uL [facility] Monocytes/100 WBC (Bld) 6.7 % 2.0 - 10.0 % [facility] Neutrophils (Bld) [#/Vol] 5.8 10*3/uL 1.8 - 7.0 10*3/uL [facility] Neutrophils/100 WBC (Bld) 83.4 % High 40.0 - 80.0 % [facility] Platelet mean volume (Bld) [Entitic vol] 9.6 fL 7.4 - 12.4 fL [facility] Comment on above: MPV is a calculated measurement using platelet volume ratio Platelets (Bld) [#/Vol] 251 10*3/uL 140 - 440 10*3/uL [facility] RBC (Bld) [#/Vol] 4.13 10*6/uL 3.8 - 5.20 10*6/uL [facility] WBC (Bld) [#/Vol] 6.9 10*3/uL 3.6 - 10.7 10*3/uL [facility] Comprehensive metabolic 1998 panelon 06-03-2023 Albumin [Mass/Vol] 3.9 g/dL 3.5 - 5.0 g/dL [facility] ALP [Catalytic activity/Vol] 79 U/L 38 - 126 U/L [facility] ALT [Catalytic activity/Vol] 24 U/L 0 - 34 U/L [facility] Anion gap [Moles/Vol] 12 mmol/L 3 - 13 mmol/L [facility] AST [Catalytic activity/Vol] 45 U/L 15 - 46 U/L [facility] Bilirubin [Mass/Vol] 0.8 mg/dL 0.2 - 1 .3 mg/dL [facility] Calcium [Mass/Vol] 8.8 mg/dL 8.4 - 10. 4 mg/dL [facility] Chloride [Moles/Vol] 100 mmol/L 98 - 10 7 mmol/L [facility] CO2 [Moles/Vol] 22 mmol/L 22 - 30 mmol/L [facility] Creatinine [Mass/Vol] 0.74 mg/dL 0.52 - 1.04 mg/dL [facility] GFR/1.73 sq M.predicted MDRD (S/P/Bld) [Vol rate/Area] 83.4 mL/min/{1.73_m2} [facility] Comment on above: Calculation based on the Chronic Kidney Disease Epidemiology Collaboration (CKD-EPI) equation refit without adjustment for race Glucose [Mass/Vol] 146 mg/dL High 70 - 100 mg/dL [facility] Interpretation and review of laboratory results Abnormal [facility] Potassium [Moles/Vol] 4.5 mmol/L 3.5 - 5.1 mmol/L [facility] Protein [Mass/Vol] 7.0 g/dL 6.3 - 8.2 g/dL [facility] Sodium [Moles/Vol] 134 mmol/L Low 135 - 145 mmol/L [facility] Urea nitrogen [Mass/Vol] 12 mg/dL 7 - 17 mg/dL [facility] Urinalysis complete panel (U )on 06-03-2023 Bacteria LM.HPF (Urine sed) [#/Area] Moderate Abnormal Negative /HPF [facility] Bilirubin Ql (U) Negative Negative mg/dL [facility] Clarity (U) Clear Clear [facility] Color (U) Yellow Lt. Yellow [facility] Epithelial cells.squamous LM.HPF (Urine sed) [#/Area] 0-2 [facility] Glucose Ql (U) Normal Normal (<70) mg/dL [facility] Hemoglobin Ql (U) 0.06 mg/dL Abnormal Negative [facility] Interpretation and review of laboratory results Abnormal [facility] Ketones (U) [Mass/Vol] Negative Negat susy mg/dL [facility] Leukocyte esterase Test strip Ql (U) 500 Abnormal Negative Jose/uL [facility] Nitrite Ql (U) Negative Negative [facility] Non-Squamous Epithalial Cells, Urine 0-2 Abnormal Negative /HPF [facility] pH (U) 7.0 [pH] 5.0 - 8.0 pH [facility] Protein (U) [Mass/Vol] Negative Negat susy mg/dL [facility] RBC LM.HPF (Urine sed) [#/Area] 3-5 Abnormal [facility] Specific gravity (U) [Rel density] 1.010 1.005 - 1.030 [facility] Urobilinogen (U) [Mass/Vol] Normal Normal (0-1) mg/dL [facility] Volume, [facility] 8[facility] LM.HPF (Urine sed) [#/Area] 6-10 Abnormal [facility] CBC W Auto Differential pane l (Bld)Ordered By: Radha Rain on 05-27-2023 Basophils (Bld) [#/Vol] 0.0 10*3/uL 0.0 - 0.2 10*3/uL [facility] Basophils/100 WBC (Bld) 0.8 % 0.0 - 2.0 % [facility] Eosinophils (Bld) [#/Vol] 0.1 10*3/uL 0.0 - 0.5 10*3/uL [facility] Eosinophils/100 WBC (Bld) 1.7 % 1.0 - 6.0 % [facility] Erythrocyte distribution width (RBC) [Ratio] 15.8 % High 11.5 - 14.5 % [facility] Hematocrit (Bld) [Volume fraction] 38.5 % 35.0 - 47.0 % [facility] Hemoglobin (Bld) [Mass/Vol] 13.1 g/dL 11.7 - 16.0 g/dL [facility] Immature granulocytes (Bld) [#/Vol] 0.1 10*3/uL High NINF - 0.0 10*3/uL [facility] Immature granulocytes/100 WBC (Bld) 2.1 % High NINF - 0.0 % [facility] Interpretation and review of laboratory results Abnormal [facility] Lymphocytes (Bld) [#/Vol] 0.7 10*3/uL Low 1.0 - 4.3 10*3/uL [facility] Lymphocytes/100 WBC (Bld) 12.7 % Low 20.0 - 40.0 % [facility] MCH (RBC) [Entitic mass] 31.6 pg 26.0 - 34.0 pg [facility] MCHC (RBC) [Mass/Vol] 34.0 % 32.0 - 36.0 % [facility] MCV (RBC) [Entitic vol] 92.8 fL 80.0 - 98.0 fL [facility] Monocytes (Bld) [#/Vol] 0.4 10*3/uL 0.0 - 0.8 10*3/uL [facility] Monocytes/100 WBC (Bld) 7.8 % 2.0 - 10.0 % [facility] Neutrophils (Bld) [#/Vol] 4.0 10*3/uL 1.8 - 7.0 10*3/uL [facility] Neutrophils/100 WBC (Bld) 74.9 % 40.0 - 80.0 % [facility] Platelet mean volume (Bld) [Entitic vol] 9.5 fL 7.4 - 12.4 fL [facility] Comment on above: MPV is a calculated measurement using platelet volume ratio Platelets (Bld) [#/Vol] 226 10*3/uL 140 - 440 10*3/uL [facility] RBC (Bld) [#/Vol] 4.15 10*6/uL 3.8 - 5.20 10*6/uL [facility] WBC (Bld) [#/Vol] 5.3 10*3/uL 3.6 - 10.7 10*3/uL [facility] Comprehensive metabolic 1998 panelon 05-27-2023 Albumin [Mass/Vol] 4.0 g/dL 3.5 - 5.0 g/dL [facility] ALP [Catalytic activity/Vol] 81 U/L 38 - 126 U/L [facility] ALT [Catalytic activity/Vol] 20 U/L 0 - 34 U/L [facility] Anion gap [Moles/Vol] 9 mmol/L 3 - 13 mmol/L [facility] AST [Catalytic activity/Vol] 33 U/L 15 - 46 U/L [facility] Bilirubin [Mass/Vol] 0.6 mg/dL 0.2 - 1 .3 mg/dL [facility] Calcium [Mass/Vol] 8.8 mg/dL 8.4 - 10. 4 mg/dL [facility] Chloride [Moles/Vol] 103 mmol/L 98 - 10 7 mmol/L [facility] CO2 [Moles/Vol] 24 mmol/L 22 - 30 mmol/L [facility] Creatinine [Mass/Vol] 0.54 mg/dL 0.52 - 1.04 mg/dL [facility] GFR/1.73 sq M.predicted MDRD (S/P/Bld) [Vol rate/Area] - PINF [facility] Comment on above: Calculation based on the Chronic Kidney Disease Epidemiology Collaboration (CKD-EPI) equation refit without adjustment for race Glucose [Mass/Vol] 131 mg/dL High 70 - 100 mg/dL [facility] Interpretation and review of laboratory results Abnormal [facility] Potassium [Moles/Vol] 3.7 mmol/L 3.5 - 5.1 mmol/L [facility] Protein [Mass/Vol] 6.7 g/dL 6.3 - 8.2 g/dL [facility] Sodium [Moles/Vol] 135 mmol/L 135 - 145 mmol/L [facility] Urea nitrogen [Mass/Vol] 12 mg/dL 7 - 17 mg/dL [facility] CBC W Auto Differential pane l (Bld)Ordered By: Annie Call on 05-20-2023 Basophils (Bld) [#/Vol] 0.0 10*3/uL 0.0 - 0.2 10*3/uL [facility] Basophils/100 WBC (Bld) 0.7 % 0.0 - 2.0 % [facility] Eosinophils (Bld) [#/Vol] 0.1 10*3/uL 0.0 - 0.5 10*3/uL [facility] Eosinophils/100 WBC (Bld) 1.1 % 1.0 - 6.0 % [facility] Erythrocyte distribution width (RBC) [Ratio] 15.3 % High 11.5 - 14.5 % [facility] Hematocrit (Bld) [Volume fraction] 40.1 % 35.0 - 47.0 % [facility] Hemoglobin (Bld) [Mass/Vol] 13.8 g/dL 11.7 - 16.0 g/dL [facility] Immature granulocytes (Bld) [#/Vol] 0.1 10*3/uL High NINF - 0.0 10*3/uL [facility] Immature granulocytes/100 WBC (Bld) 1.5 % High NINF - 0.0 % [facility] Interpretation and review of laboratory results Abnormal [facility] Lymphocytes (Bld) [#/Vol] 0.6 10*3/uL Low 1.0 - 4.3 10*3/uL [facility] Lymphocytes/100 WBC (Bld) 11.6 % Low 20.0 - 40.0 % [facility] MCH (RBC) [Entitic mass] 31.9 pg 26.0 - 34.0 pg [facility] MCHC (RBC) [Mass/Vol] 34.4 % 32.0 - 36.0 % [facility] MCV (RBC) [Entitic vol] 92.6 fL 80.0 - 98.0 fL [facility] Monocytes (Bld) [#/Vol] 0.3 10*3/uL 0.0 - 0.8 10*3/uL [facility] Monocytes/100 WBC (Bld) 5.8 % 2.0 - 10.0 % [facility] Neutrophils (Bld) [#/Vol] 4.4 10*3/uL 1.8 - 7.0 10*3/uL [facility] Neutrophils/100 WBC (Bld) 79.3 % 40.0 - 80.0 % [facility] Platelet mean volume (Bld) [Entitic vol] 9.8 fL 7.4 - 12.4 fL [facility] Comment on above: MPV is a calculated measurement using platelet volume ratio Platelets (Bld) [#/Vol] 237 10*3/uL 140 - 440 10*3/uL [facility] RBC (Bld) [#/Vol] 4.33 10*6/uL 3.8 - 5.20 10*6/uL [facility] WBC (Bld) [#/Vol] 5.5 10*3/uL 3.6 - 10.7 10*3/uL [facility] Comprehensive metabolic 1998 panelon 05-20-2023 Albumin [Mass/Vol] 4.4 g/dL 3.5 - 5.0 g/dL [facility] ALP [Catalytic activity/Vol] 81 U/L 38 - 126 U/L [facility] ALT [Catalytic activity/Vol] 42 U/L High 0 - 34 U/L [facility] Anion gap [Moles/Vol] 7 mmol/L 3 - 13 mmol/L [facility] AST [Catalytic activity/Vol] 46 U/L 15 - 46 U/L [facility] Bilirubin [Mass/Vol] 0.7 mg/dL 0.2 - 1 .3 mg/dL [facility] Calcium [Mass/Vol] 8.9 mg/dL 8.4 - 10. 4 mg/dL [facility] Chloride [Moles/Vol] 106 mmol/L 98 - 10 7 mmol/L [facility] CO2 [Moles/Vol] 23 mmol/L 22 - 30 mmol/L [facility] Creatinine [Mass/Vol] 0.62 mg/dL 0.52 - 1.04 mg/dL [facility] GFR/1.73 sq M.predicted MDRD (S/P/Bld) [Vol rate/Area] - PINF [facility] Comment on above: Calculation based on the Chronic Kidney Disease Epidemiology Collaboration (CKD-EPI) equation refit without adjustment for race Glucose [Mass/Vol] 115 mg/dL High 70 - 100 mg/dL [facility] Interpretation and review of laboratory results Abnormal [facility] Potassium [Moles/Vol] 4.3 mmol/L 3.5 - 5.1 mmol/L [facility] Protein [Mass/Vol] 7.5 g/dL 6.3 - 8.2 g/dL [facility] Sodium [Moles/Vol] 136 mmol/L 135 - 145 mmol/L [facility] Urea nitrogen [Mass/Vol] 21 mg/dL High 7 - 17 mg/dL [facility] CBC W Auto Differential pane l (Bld)Ordered By: Radha Rain on 05-13-2023 Basophils (Bld) [#/Vol] 0.1 10*3/uL 0.0 - 0.2 10*3/uL [facility] Basophils/100 WBC (Bld) 1.0 % 0.0 - 2.0 % [facility] Eosinophils (Bld) [#/Vol] 0.1 10*3/uL 0.0 - 0.5 10*3/uL [facility] Eosinophils/100 WBC (Bld) 1.8 % 1.0 - 6.0 % [facility] [employer] Erythrocyte distribution width (RBC) [Ratio] 14.9 % High 11.5 - 14.5 % [facility] [employer] Hematocrit (Bld) [Volume fraction] 38.6 % 35.0 - 47.0 % [facility] Hemoglobin (Bld) [Mass/Vol] 12.9 g/dL 11.7 - 16.0 g/dL [facility] [employer] Immature granulocytes (Bld) [#/Vol] 0.1 10*3/uL High NINF - 0.0 10*3/uL [facility] Immature granulocytes/100 WBC (Bld) 1.6 % High NINF - 0.0 % [facility] Interpretation and review of laboratory results Abnormal [facility] Lymphocytes (Bld) [#/Vol] 0.9 10*3/uL Low 1.0 - 4.3 10*3/uL [facility] Lymphocytes/100 WBC (Bld) 17.0 % Low 20.0 - 40.0 % [facility] MCH (RBC) [Entitic mass] 31.2 pg 26.0 - 34.0 pg [facility] [employer] MCHC (RBC) [Mass/Vol] 33.4 % 32.0 - 36.0 % [facility] MCV (RBC) [Entitic vol] 93.5 fL 80.0 - 98.0 fL [facility] [employer] Monocytes (Bld) [#/Vol] 0.2 10*3/uL 0.0 - 0.8 10*3/uL [facility] Monocytes/100 WBC (Bld) 3.2 % 2.0 - 10.0 % [facility] [employer] Neutrophils (Bld) [#/Vol] 3.8 10*3/uL 1.8 - 7.0 10*3/uL [facility] Neutrophils/100 WBC (Bld) 75.4 % 40.0 - 80.0 % [facility] Platelet mean volume (Bld) [Entitic vol] 9.9 fL 7.4 - 12.4 fL [facility] Comment on above: MPV is a calculated measurement using platelet volume ratio Platelets (Bld) [#/Vol] 218 10*3/uL 140 - 440 10*3/uL [facility] RBC (Bld) [#/Vol] 4.13 10*6/uL 3.8 - 5.20 10*6/uL [facility] WBC (Bld) [#/Vol] 5.1 10*3/uL 3.6 - 10.7 10*3/uL [facility] Comprehensive metabolic 1998 panelon 05-13-2023 Albumin [Mass/Vol] 4.0 g/dL 3.5 - 5.0 g/dL [facility] ALP [Catalytic activity/Vol] 89 U/L 38 - 126 U/L [facility] ALT [Catalytic activity/Vol] 36 U/L High 0 - 34 U/L [facility] Anion gap [Moles/Vol] 8 mmol/L 3 - 13 mmol/L [facility] AST [Catalytic activity/Vol] 37 U/L 15 - 46 U/L [facility] Bilirubin [Mass/Vol] 0.5 mg/dL 0.2 - 1 .3 mg/dL [facility] Calcium [Mass/Vol] 8.5 mg/dL 8.4 - 10. 4 mg/dL [facility] Chloride [Moles/Vol] 105 mmol/L 98 - 10 7 mmol/L [facility] CO2 [Moles/Vol] 24 mmol/L 22 - 30 mmol/L [facility] Creatinine [Mass/Vol] 0.72 mg/dL 0.52 - 1.04 mg/dL [facility] GFR/1.73 sq M.predicted MDRD (S/P/Bld) [Vol rate/Area] 86.2 mL/min/{1.73_m2} - PINF [facility] Comment on above: Calculation based on the Chronic Kidney Disease Epidemiology Collaboration (CKD-EPI) equation refit without adjustment for race Glucose [Mass/Vol] 150 mg/dL High 70 - 100 mg/dL [facility] Interpretation and review of laboratory results Abnormal [facility] Potassium [Moles/Vol] 3.6 mmol/L 3.5 - 5.1 mmol/L [facility] Protein [Mass/Vol] 6.7 g/dL 6.3 - 8.2 g/dL [facility] Sodium [Moles/Vol] 137 mmol/L 135 - 145 mmol/L [facility] Urea nitrogen [Mass/Vol] 19 mg/dL High 7 - 17 mg/dL [facility] CBC W Auto Differential pane l (Bld)Ordered By: Radha Rain on 05-06-2023 Basophils (Bld) [#/Vol] 0.0 10*3/uL 0.0 - 0.2 10*3/uL [facility] Basophils/100 WBC (Bld) 0.9 % 0.0 - 2.0 % [facility] Eosinophils (Bld) [#/Vol] 0.1 10*3/uL 0.0 - 0.5 10*3/uL [facility] Eosinophils/100 WBC (Bld) 2.8 % 1.0 - 6.0 % [facility] Erythrocyte distribution width (RBC) [Ratio] 14.6 % High 11.5 - 14.5 % [facility] Hematocrit (Bld) [Volume fraction] 39.2 % 35.0 - 47.0 % [facility] Hemoglobin (Bld) [Mass/Vol] 13.0 g/dL 11.7 - 16.0 g/dL [facility] Immature granulocytes (Bld) [#/Vol] 0.1 10*3/uL High NINF - 0.0 10*3/uL [facility] Immature granulocytes/100 WBC (Bld) 1.7 % High NINF - 0.0 % [facility] Interpretation and review of laboratory results Abnormal [facility] Lymphocytes (Bld) [#/Vol] 0.8 10*3/uL Low 1.0 - 4.3 10*3/uL [facility] Lymphocytes/100 WBC (Bld) 18.0 % Low 20.0 - 40.0 % [facility] MCH (RBC) [Entitic mass] 31.1 pg 26.0 - 34.0 pg [facility] MCHC (RBC) [Mass/Vol] 33.2 % 32.0 - 36.0 % [facility] MCV (RBC) [Entitic vol] 93.8 fL 80.0 - 98.0 fL [facility] Monocytes (Bld) [#/Vol] 0.3 10*3/uL 0.0 - 0.8 10*3/uL [facility] Monocytes/100 WBC (Bld) 5.4 % 2.0 - 10.0 % [facility] Neutrophils (Bld) [#/Vol] 3.3 10*3/uL 1.8 - 7.0 10*3/uL [facility] Neutrophils/100 WBC (Bld) 71.2 % 40.0 - 80.0 % [facility] Platelet mean volume (Bld) [Entitic vol] 10.0 fL 7.4 - 12.4 fL [facility] Comment on above: MPV is a calculated measurement using platelet volume ratio Platelets (Bld) [#/Vol] 184 10*3/uL 140 - 440 10*3/uL [facility] RBC (Bld) [#/Vol] 4.18 10*6/uL 3.8 - 5.20 10*6/uL [facility] WBC (Bld) [#/Vol] 4.7 10*3/uL 3.6 - 10.7 10*3/uL [facility] Comprehensive metabolic 1998 panelon 05-06-2023 Albumin [Mass/Vol] 3.9 g/dL 3.5 - 5.0 g/dL [facility] ALP [Catalytic activity/Vol] 80 U/L 38 - 126 U/L [facility] ALT [Catalytic activity/Vol] 40 U/L High 0 - 34 U/L [facility] Anion gap [Moles/Vol] 9 mmol/L 3 - 13 mmol/L [facility] AST [Catalytic activity/Vol] 36 U/L 15 - 46 U/L [facility] Bilirubin [Mass/Vol] 0.5 mg/dL 0.2 - 1 .3 mg/dL [facility] Calcium [Mass/Vol] 8.6 mg/dL 8.4 - 10. 4 mg/dL [facility] Chloride [Moles/Vol] 105 mmol/L 98 - 10 7 mmol/L [facility] CO2 [Moles/Vol] 24 mmol/L 22 - 30 mmol/L [facility] Creatinine [Mass/Vol] 0.61 mg/dL 0.52 - 1.04 mg/dL [facility] [employer] GFR/1.73 sq M.predicted MDRD (S/P/Bld) [Vol rate/Area] - PINF [facility] Comment on above: Calculation based on the Chronic Kidney Disease Epidemiology Collaboration (CKD-EPI) equation refit without adjustment for race Glucose [Mass/Vol] 125 mg/dL High 70 - 100 mg/dL [facility] Interpretation and review of laboratory results Abnormal [facility] [employer] Potassium [Moles/Vol] 3.8 mmol/L 3.5 - 5.1 mmol/L [facility] [employer] Protein [Mass/Vol] 6.7 g/dL 6.3 - 8.2 g/dL [facility] Sodium [Moles/Vol] 139 mmol/L 135 - 145 mmol/L [facility] Urea nitrogen [Mass/Vol] 22 mg/dL High 7 - 17 mg/dL [facility] CBC W Auto Differential pane l (Bld)Ordered By: Annie Montalvo on 04-29-2023 Basophils (Bld) [#/Vol] 0.0 10*3/uL 0.0 - 0.2 10*3/uL [facility] [employer] Basophils/100 WBC (Bld) 0.6 % 0.0 - 2.0 % [facility] Eosinophils (Bld) [#/Vol] 0.1 10*3/uL 0.0 - 0.5 10*3/uL [facility] [employer] Eosinophils/100 WBC (Bld) 1.8 % 1.0 - 6.0 % [facility] Erythrocyte distribution width (RBC) [Ratio] 14.5 % 11.5 - 14.5 % [facility] Hematocrit (Bld) [Volume fraction] 40.1 % 35.0 - 47.0 % [facility] Hemoglobin (Bld) [Mass/Vol] 13.4 g/dL 11.7 - 16.0 g/dL [facility] [employer] Immature granulocytes (Bld) [#/Vol] 0.1 10*3/uL High NINF - 0.0 10*3/uL [facility] [employer] Immature granulocytes/100 WBC (Bld) 1.3 % High NINF - 0.0 % [facility] Interpretation and review of laboratory results Abnormal [facility] [employer] Lymphocytes (Bld) [#/Vol] 1.3 10*3/uL 1.0 - 4.3 10*3/uL [facility] Lymphocytes/100 WBC (Bld) 18.5 % Low 20.0 - 40.0 % [facility] MCH (RBC) [Entitic mass] 31.2 pg 26.0 - 34.0 pg [facility] MCHC (RBC) [Mass/Vol] 33.4 % 32.0 - 36.0 % [facility] MCV (RBC) [Entitic vol] 93.3 fL 80.0 - 98.0 fL [facility] Monocytes (Bld) [#/Vol] 0.3 10*3/uL 0.0 - 0.8 10*3/uL [facility] Monocytes/100 WBC (Bld) 4.4 % 2.0 - 10.0 % [facility] Neutrophils (Bld) [#/Vol] 5.0 10*3/uL 1.8 - 7.0 10*3/uL [facility] Neutrophils/100 WBC (Bld) 73.4 % 40.0 - 80.0 % [facility] Platelet mean volume (Bld) [Entitic vol] 9.7 fL 7.4 - 12.4 fL [facility] Comment on above: MPV is a calculated measurement using platelet volume ratio Platelets (Bld) [#/Vol] 211 10*3/uL 140 - 440 10*3/uL [facility] RBC (Bld) [#/Vol] 4.30 10*6/uL 3.8 - 5.20 10*6/uL [facility] WBC (Bld) [#/Vol] 6.8 10*3/uL 3.6 - 10.7 10*3/uL [facility] metabolic 1998 panelon 04-29-2023 Albumin [Mass/Vol] 4.1 g/dL 3.5 - 5.0 g/dL [facility] ALP [Catalytic activity/Vol] 99 U/L 38 - 126 U/L [facility] ALT [Catalytic activity/Vol] 33 U/L 0 - 34 U/L [facility] Anion gap [Moles/Vol] 9 mmol/L 3 - 13 mmol/L [facility] AST [Catalytic activity/Vol] 38 U/L 15 - 46 U/L [facility] Bilirubin [Mass/Vol] 0.4 mg/dL 0.2 - 1 .3 mg/dL [facility] Calcium [Mass/Vol] 8.3 mg/dL Low 8.4 - 10. 4 mg/dL [facility] Chloride [Moles/Vol] 105 mmol/L 98 - 10 7 mmol/L [facility] CO2 [Moles/Vol] 24 mmol/L 22 - 30 mmol/L [facility] Creatinine [Mass/Vol] 0.59 mg/dL 0.52 - 1.04 mg/dL [facility] GFR/1.73 sq M.predicted MDRD (S/P/Bld) [Vol rate/Area] - PINF [facility] Comment on above: Calculation based on the Chronic Kidney Disease Epidemiology Collaboration (CKD-EPI) equation refit without adjustment for race Glucose [Mass/Vol] 121 mg/dL High 70 - 100 mg/dL [facility] Interpretation and review of laboratory results Abnormal [facility] Potassium [Moles/Vol] 4.0 mmol/L 3.5 - 5.1 mmol/L [facility] Protein [Mass/Vol] 7.0 g/dL 6.3 - 8.2 g/dL [facility] Sodium [Moles/Vol] 139 mmol/L 135 - 145 mmol/L [facility] Urea nitrogen [Mass/Vol] 22 mg/dL High 7 - 17 mg/dL [facility] CBC W Auto Differential pane l (Bld)Ordered By: Radha Rain on 04-22-2023 Basophils (Bld) [#/Vol] 0.0 10*3/uL 0.0 - 0.2 10*3/uL [facility] Basophils/100 WBC (Bld) 0.8 % 0.0 - 2.0 % [facility] Eosinophils (Bld) [#/Vol] 0.1 10*3/uL 0.0 - 0.5 10*3/uL [facility] Eosinophils/100 WBC (Bld) 1.5 % 1.0 - 6.0 % [facility] Erythrocyte distribution width (RBC) [Ratio] 14.3 % 11.5 - 14.5 % [facility] Hematocrit (Bld) [Volume fraction] 39.2 % 35.0 - 47.0 % [facility] Hemoglobin (Bld) [Mass/Vol] 12.9 g/dL 11.7 - 16.0 g/dL [facility] Immature granulocytes (Bld) [#/Vol] 0.1 10*3/uL High NINF - 0.0 10*3/uL [facility] Immature granulocytes/100 WBC (Bld) 1.1 % High NINF - 0.0 % [facility] Interpretation and review of laboratory results Abnormal [facility] Lymphocytes (Bld) [#/Vol] 1.1 10*3/uL 1.0 - 4.3 10*3/uL [facility] Lymphocytes/100 WBC (Bld) 23.4 % 20.0 - 40.0 % [facility] MCH (RBC) [Entitic mass] 30.9 pg 26.0 - 34.0 pg [facility] MCHC (RBC) [Mass/Vol] 32.9 % 32.0 - 36.0 % [facility] MCV (RBC) [Entitic vol] 93.8 fL 80.0 - 98.0 fL [facility] Monocytes (Bld) [#/Vol] 0.5 10*3/uL 0.0 - 0.8 10*3/uL [facility] Monocytes/100 WBC (Bld) 10.0 % 2.0 - 10.0 % [facility] Neutrophils (Bld) [#/Vol] 3.0 10*3/uL 1.8 - 7.0 10*3/uL [facility] Neutrophils/100 WBC (Bld) 63.2 % 40.0 - 80.0 % [facility] Platelet mean volume (Bld) [Entitic vol] 9.3 fL 7.4 - 12.4 fL [facility] Comment on above: MPV is a calculated measurement using platelet volume ratio Platelets (Bld) [#/Vol] 223 10*3/uL 140 - 440 10*3/uL [facility] RBC (Bld) [#/Vol] 4.18 10*6/uL 3.8 - 5.20 10*6/uL [facility] WBC (Bld) [#/Vol] 4.7 10*3/uL 3.6 - 10.7 10*3/uL [facility] metabolic 1998 panelon 04-22-2023 Albumin [Mass/Vol] 3.9 g/dL 3.5 - 5.0 g/dL [facility] ALP [Catalytic activity/Vol] 100 U/L 38 - 126 U/L [facility] ALT [Catalytic activity/Vol] 36 U/L High 0 - 34 U/L [facility] Anion gap [Moles/Vol] 3 mmol/L 3 - 13 mmol/L [facility] AST [Catalytic activity/Vol] 37 U/L 15 - 46 U/L [facility] Bilirubin [Mass/Vol] 0.4 mg/dL 0.2 - 1 .3 mg/dL [facility] Calcium [Mass/Vol] 8.6 mg/dL 8.4 - 10. 4 mg/dL [facility] Chloride [Moles/Vol] 107 mmol/L 98 - 10 7 mmol/L [facility] CO2 [Moles/Vol] 28 mmol/L 22 - 30 mmol/L [facility] Creatinine [Mass/Vol] 0.56 mg/dL 0.52 - 1.04 mg/dL [facility] GFR/1.73 sq M.predicted MDRD (S/P/Bld) [Vol rate/Area] - PINF [facility] Comment on above: Calculation based on the Chronic Kidney Disease Epidemiology Collaboration (CKD-EPI) equation refit without adjustment for race Glucose [Mass/Vol] 139 mg/dL High 70 - 100 mg/dL [facility] Interpretation and review of laboratory results Abnormal [facility] Potassium [Moles/Vol] 3.8 mmol/L 3.5 - 5.1 mmol/L [facility] Protein [Mass/Vol] 6.7 g/dL 6.3 - 8.2 g/dL [facility] Sodium [Moles/Vol] 138 mmol/L 135 - 145 mmol/L [facility] Urea nitrogen [Mass/Vol] 17 mg/dL 7 - 17 mg/dL [facility] CBC W Auto Differential pane l (Bld)Ordered By: Radha Rain on 04-08-2023 Basophils (Bld) [#/Vol] 0.0 10*3/uL 0.0 - 0.2 10*3/uL [facility] Basophils (Bld) [#/Vol] 0 10*3/uL 0.0 - 0.2 10*3/uL [facility] Basophils/100 WBC (Bld) 0.9 % 0.0 - 2.0 % [facility] Eosinophils (Bld) [#/Vol] 0.1 10*3/uL 0.0 - 0.5 10*3/uL [facility] Eosinophils/100 WBC (Bld) 2.6 % 1.0 - 6.0 % [facility] Erythrocyte distribution width (RBC) [Ratio] 14.0 % 11.5 - 14.5 % [facility] Erythrocyte distribution width (RBC) [Ratio] 14 % 11.5 - 14.5 % [facility] Hematocrit (Bld) [Volume fraction] 39.1 % 35.0 - 47.0 % [facility] Hemoglobin (Bld) [Mass/Vol] 12.8 g/dL 11.7 - 16.0 g/dL [facility] Immature granulocytes (Bld) [#/Vol] 0.1 10*3/uL High NINF - 0.0 10*3/uL [facility] Immature granulocytes/100 WBC (Bld) 1.9 % High NINF - 0.0 % [facility] Interpretation and review of laboratory results Abnormal [facility] Lymphocytes (Bld) [#/Vol] 0.9 10*3/uL Low 1.0 - 4.3 10*3/uL [facility] Lymphocytes/100 WBC (Bld) 18.6 % Low 20.0 - 40.0 % [facility] MCH (RBC) [Entitic mass] 31.0 pg 26.0 - 34.0 pg [facility] MCH (RBC) [Entitic mass] 31 pg 26.0 - 34.0 pg [facility] MCHC (RBC) [Mass/Vol] 32.7 % 32.0 - 36.0 % [facility] MCV (RBC) [Entitic vol] 94.7 fL 80.0 - 98.0 fL [facility] Monocytes (Bld) [#/Vol] 0.2 10*3/uL 0.0 - 0.8 10*3/uL [facility] Monocytes/100 WBC (Bld) 3.2 % 2.0 - 10.0 % [facility] Neutrophils (Bld) [#/Vol] 3.4 10*3/uL 1.8 - 7.0 10*3/uL [facility] Neutrophils/100 WBC (Bld) 72.8 % 40.0 - 80.0 % [facility] Platelet mean volume (Bld) [Entitic vol] 10.1 fL 7.4 - 12.4 fL [facility] Comment on above: MPV is a calculated measurement using platelet volume ratio Platelets (Bld) [#/Vol] 186 10*3/uL 140 - 440 10*3/uL [facility] RBC (Bld) [#/Vol] 4.13 10*6/uL 3.8 - 5.20 10*6/uL [facility] WBC (Bld) [#/Vol] 4.7 10*3/uL 3.6 - 10.7 10*3/uL [facility] Comprehensive metabolic 1998 panelon 04-08-2023 Albumin [Mass/Vol] 4.0 g/dL 3.5 - 5.0 g/dL [facility] Albumin [Mass/Vol] 4 g/dL 3.5 - 5.0 g/dL [facility] ALP [Catalytic activity/Vol] 86 U/L 38 - 126 U/L [facility] ALT [Catalytic activity/Vol] 42 U/L High 0 - 34 U/L [facility] Anion gap [Moles/Vol] 2 mmol/L Low 3 - 13 mmol/L [facility] AST [Catalytic activity/Vol] 37 U/L 15 - 46 U/L [facility] Bilirubin [Mass/Vol] 0.6 mg/dL 0.2 - 1 .3 mg/dL [facility] Calcium [Mass/Vol] 8.7 mg/dL 8.4 - 10. 4 mg/dL [facility] Chloride [Moles/Vol] 106 mmol/L 98 - 10 7 mmol/L [facility] CO2 [Moles/Vol] 30 mmol/L 22 - 30 mmol/L [facility] Creatinine [Mass/Vol] 0.60 mg/dL 0.52 - 1.04 mg/dL [facility] Creatinine [Mass/Vol] 0.6 mg/dL 0.52 - 1.04 mg/dL [facility] GFR/1.73 sq M.predicted MDRD (S/P/Bld) [Vol rate/Area] - PINF [facility] Comment on above: Calculation based on the Chronic Kidney Disease Epidemiology Collaboration (CKD-EPI) equation refit without adjustment for race Glucose [Mass/Vol] 88 mg/dL 70 - 100 mg/dL [facility] Interpretation and review of laboratory results Abnormal [facility] Potassium [Moles/Vol] 4.1 mmol/L 3.5 - 5.1 mmol/L [facility] Protein [Mass/Vol] 6.6 g/dL 6.3 - 8.2 g/dL [facility] Sodium [Moles/Vol] 138 mmol/L 135 - 145 mmol/L [facility] Urea nitrogen [Mass/Vol] 21 mg/dL High 7 - 17 mg/dL [facility] CBC W Auto Differential pane l (Bld)Ordered By: Radha Rain on 04-01-2023 Basophils (Bld) [#/Vol] 0.0 10*3/uL 0.0 - 0.2 10*3/uL [facility] Basophils/100 WBC (Bld) 0.1 % 0.0 - 2.0 % [facility] Eosinophils (Bld) [#/Vol] 0.0 10*3/uL 0.0 - 0.5 10*3/uL [facility] Eosinophils/100 WBC (Bld) 0.0 % Low 1.0 - 6.0 % [facility] Erythrocyte distribution width (RBC) [Ratio] 13.8 % 11.5 - 14.5 % [facility] Hematocrit (Bld) [Volume fraction] 42.8 % 35.0 - 47.0 % [facility] Hemoglobin (Bld) [Mass/Vol] 14.1 g/dL 11.7 - 16.0 g/dL [facility] Immature granulocytes (Bld) [#/Vol] 0.0 10*3/uL NINF - 0.0 10*3/uL [facility] Immature granulocytes/100 WBC (Bld) 0.3 % High NINF - 0.0 % [facility] Interpretation and review of laboratory results Abnormal [facility] Lymphocytes (Bld) [#/Vol] 0.7 10*3/uL Low 1.0 - 4.3 10*3/uL [facility] Lymphocytes/100 WBC (Bld) 5.2 % Low 20.0 - 40.0 % [facility] MCH (RBC) [Entitic mass] 30.7 pg 26.0 - 34.0 pg [facility] MCHC (RBC) [Mass/Vol] 32.9 % 32.0 - 36.0 % [facility] MCV (RBC) [Entitic vol] 93.2 fL 80.0 - 98.0 fL [facility] Monocytes (Bld) [#/Vol] 0.4 10*3/uL 0.0 - 0.8 10*3/uL [facility] Monocytes/100 WBC (Bld) 2.6 % 2.0 - 10.0 % [facility] Neutrophils (Bld) [#/Vol] 12.3 10*3/uL High 1.8 - 7.0 10*3/uL [facility] Neutrophils/100 WBC (Bld) 91.8 % High 40.0 - 80.0 % [facility] Platelet mean volume (Bld) [Entitic vol] 9.8 fL 7.4 - 12.4 fL [facility] Comment on above: MPV is a calculated measurement using platelet volume ratio Platelets (Bld) [#/Vol] 221 10*3/uL 140 - 440 10*3/uL [facility] RBC (Bld) [#/Vol] 4.59 10*6/uL 3.8 - 5.20 10*6/uL [facility] WBC (Bld) [#/Vol] 13.4 10*3/uL High 3.6 - 10.7 10*3/uL [facility] Comprehensive metabolic 1998 panelon 04-01-2023 Albumin [Mass/Vol] 4.5 g/dL 3.5 - 5.0 g/dL [facility] ALP [Catalytic activity/Vol] 98 U/L 38 - 126 U/L [facility] ALT [Catalytic activity/Vol] 20 U/L 0 - 34 U/L [facility] Anion gap [Moles/Vol] 8 mmol/L 3 - 13 mmol/L [facility] AST [Catalytic activity/Vol] 28 U/L 15 - 46 U/L [facility] Bilirubin [Mass/Vol] 0.5 mg/dL 0.2 - 1 .3 mg/dL [facility] Calcium [Mass/Vol] 9.0 mg/dL 8.4 - 10. 4 mg/dL [facility] Chloride [Moles/Vol] 107 mmol/L 98 - 10 7 mmol/L [facility] CO2 [Moles/Vol] 23 mmol/L 22 - 30 mmol/L [facility] Creatinine [Mass/Vol] 0.55 mg/dL 0.52 - 1.04 mg/dL [facility] GFR/1.73 sq M.predicted MDRD (S/P/Bld) [Vol rate/Area] - PINF [facility] Comment on above: Calculation based on the Chronic Kidney Disease Epidemiology Collaboration (CKD-EPI) equation refit without adjustment for race Glucose [Mass/Vol] 196 mg/dL High 70 - 100 mg/dL [facility] [employer] Interpretation and review of laboratory results Abnormal [facility] [employer] Potassium [Moles/Vol] 3.9 mmol/L 3.5 - 5.1 mmol/L [facility] [employer] Protein [Mass/Vol] 7.5 g/dL 6.3 - 8.2 g/dL [facility] [employer] Sodium [Moles/Vol] 138 mmol/L 135 - 145 mmol/L [facility] Urea nitrogen [Mass/Vol] 21 mg/dL High 7 - 17 mg/dL [facility] US Heart TransthoracicOrdere d By: Miller Kim on 03-26-2023 AR Max Velocity PISA 3.9 m/s [facility] [employer] Work Phone: AR PHT 578.7 ms [facility] [employer] Work Phone: E/E' Lateral 9.00 [facility] [employer] Phone: E/E' Ratio (Averaged) 9.64 [facility] [employer] Work Phone: E/E' Septal 10.29 [facility] [employer] Work Phone: EF BP 63 % 55 - 100 % [facility] [employer] Work Phone: Est. RA Pressure 3 mmHg [facility] Work Phone: Fractional Shortening 2D 35 % 28 - 44 % [facility] [employer] Work Phone: Global Longitudinal Strain -17.0 % [facility] [employer] Work Phone: Interpretation and review of laboratory results Abnormal [facility] [employer] Work Phone: IVC Diameter 1.6 cm [facility] [employer] Work Phone: IVSd 0.9 cm 0.6 - 0.9 cm [facility] [employer] Work Phone: LA Volume 2C 71 mL Abnormal 22 - 52 mL [facility] [employer] Work Phone: LA Volume 4C 37 mL 22 - 52 mL [facility] [employer] Work Phone: LA Volume A/L 55 mL [facility] [employer] Work Phone: LA Volume Index 2C 36 mL/m2 Abnormal 16 - 34 mL/m2 [facility] Work Phone: LA Volume Index 4C 19 mL/m2 16 - 34 mL/m2 [facility] Work Phone: LA Volume Index A/L 28 mL/m2 16 - 34 mL/m2 [facility] Work Phone: LV E' Lateral Velocity 8 cm/s [facility] Work Phone: [phone] LV E' Septal Velocity 7 cm/s [facility] Work Phone: LV EDV A2C 70 mL [facility] Work Phone: LV EDV A4C 92 mL [facility] Work Phone: LV EDV BP 81 mL 56 - 104 mL [facility] Work Phone: LV EDV Index A2C 35 mL/m2 [facility] Work Phone: LV EDV Index A4C 46 mL/m2 [facility] Work Phone: LV EDV Index BP 41 mL/m2 [facility] Work Phone: LV Ejection Fraction A2C 59 % [facility] Work Phone: LV Ejection Fraction A4C 67 % [facility] Work Phone: LV ESV A2C 29 mL [facility] Work Phone: LV ESV A4C 31 mL [facility] Work Phone: [phone] LV ESV BP 30 mL 19 - 49 mL [facility] Work Phone: LV ESV Index A2C 15 mL/m2 [facility] [employer] Work Phone: LV ESV Index A4C 16 mL/m2 [facility] [employer] Work Phone: LV ESV Index BP 15 mL/m2 [facility] Work Phone: [phone] LV Mass 2D 117.9 g 67 - 162 g [facility] Work Phone: LV Mass 2D Index 59.2 g/m2 43 - 95 g/m2 [employer] Work Phone: LV RWT Ratio 0.30 [employer] Work Phone: LVIDd 4.6 cm 3.9 - 5.3 cm [employer] Work Phone: LVIDd Index 2.31 cm/m2 [employer] Work Phone: [phone] LVIDs 3.0 cm [employer] Work Phone: LVIDs Index 1.51 cm/m2 [employer] Work Phone: LVOT Area 2.8 cm2 [employer] Work Phone: LVOT Cardiac Output 4.1 liter/mi nut e [employer] Work Phone: LVOT Diameter 1.9 cm [employer] Work Phone: LVOT Mean Gradient 2 mmHg [employer] Work Phone: LVOT Peak Gradient 3 mmHg [employer] Work Phone: LVOT Peak Velocity 0.9 m/s [employer] Work Phone: LVOT Stroke Volume Index 28.5 mL/m2 [employer] Work Phone: LVOT SV 56.7 ml [employer] Work Phone: LVOT VTI 20.0 cm [employer] Work Phone: LVPWd 0.7 cm 0.6 - 0.9 cm [employer] Work Phone: MV A Velocity 1.10 m/s [facility]lines [facility] [employer] Work Phone: MV E Velocity 0.72 m/s [facility] Work Phone: MV E Wave Deceleration Time 198.7 ms [employer] Work Phone: MV E/A 0.65 [facility] Work Phone: RV Free Wall Peak S' 11 cm/s [employer] Work Phone: TAPSE 2.4 cm 1.7 cm [facility] Work Phone: [facility] Work Phone: US Heart Transthoracicon Left Ventricle: [...] CV CPACS US LOC BREAST LEFTon 023 [facility] BNPon 02-06-2023 Natriuretic peptide B (Bld) [Mass/Vol] 29 pg/mL Normal 0 - 99 [facility] Comment on above: Result Comment: . [...] information. Performed By: #### B NP2 #### [facility] [address] [place] [address] CBC AND DIFFERENTIALon 02-06 % AUTOMATED IMMATURE GRAN 0.3 % Normal 0.0 - 0.9 [facility] Comment on above: Result Comment: Charo ture Granulocyte Count (IG) includes promyelocytes, myelocytes and metamyelocytes but does not include bands. Percent differential counts (%) should be interpreted in the context of the absolute cell counts (cells/L). Performed By: #### C BCDF #### [facility] [address] [place] [address] Basophils (Bld) [#/Vol] 0.03 10*3/uL Normal 0.00 - 0.1 0 [facility] Comment on above: Performed By: #### C BCDF #### [facility] [address] [place] [address] Basophils/100 WBC (Bld) 0.4 % Normal 0.0 - 2.0 [facility] Comment on above: Performed By: #### C BCDF #### [facility] [address] [place] [address] Eosinophils (Bld) [#/Vol] 0.11 10*3/uL Normal 0.00 - 0.40 [facility] Comment on above: Performed By: #### C BCDF #### [facility] [address] [place] [address] Eosinophils/100 WBC (Bld) 1.6 % Normal 0.0 - 6.0 [facility] Comment on above: Performed By: #### C BCDF #### [facility] [address] [place] [address] Erythrocyte distribution width (RBC) [Ratio] 14.0 % Normal 11.5 - 14.5 [facility] Comment on above: Performed By: #### C BCDF #### [facility] [address] [place] [address] Hematocrit (Bld) [Volume fraction] 44.5 % Normal 36.0 - 46.0 [facility] Comment on above: Performed By: #### C BCDF #### [facility] [address] [place] [address] Hemoglobin (Bld) [Mass/Vol] 14.3 g/dL Normal 12.0 - 16.0 [facility] Comment on above: Performed By: #### C BCDF #### [facility] [address] [place] [address] Lymphocytes (Bld) [#/Vol] 1.71 10*3/uL Normal 0.80 - 3.00 [facility] Comment on above: Performed By: #### C BCDF #### [facility] [address] [place] [address] Lymphocytes/100 WBC (Bld) 24.3 % Normal 13.0 - 44.0 [facility] Comment on above: Performed By: #### C BCDF #### [facility] [address] [place] [address] MCHC (RBC) [Mass/Vol] 32.1 g/dL Normal 32.0 - 36.0 [facility] Comment on above: Performed By: #### C BCDF #### [facility] [address] [place] [address] MCV (RBC) [Entitic vol] 95 fL Normal 80 - 100 [facility] Comment on above: Performed By: #### C BCDF #### [facility] [address] [place] [address] Monocytes (Bld) [#/Vol] 0.61 10*3/uL Normal 0.05 - 0.8 0 [facility] Comment on above: Performed By: #### C BCDF #### [facility] [address] [place] [address] Monocytes/100 WBC (Bld) 8.7 % Normal 2.0 - 10.0 [facility] Comment on above: Performed By: #### C BCDF #### [facility] [address] [place] [address] Neutrophils (Bld) [#/Vol] 4.56 10*3/uL Normal 1.60 - 5.50 [facility] Comment on above: Performed By: #### C BCDF #### [facility] [address] [place] [address] Neutrophils/100 WBC (Bld) 64.7 % Normal 40.0 - 80.0 [facility] Comment on above: Performed By: #### C BCDF #### [facility] [address] [place] [address] NUCLEATED RBC 0.0 /100 WBC Normal 0.0-0.0 [facility] Comment on above: Performed By: #### C BCDF #### [facility] [address] [place] [address] Platelets (Bld) [#/Vol] 243 10*3/uL Normal 150 - 450 [facility] Comment on above: Performed By: #### C BCDF #### [facility] [address] [place] [address] RBC 4.70 x10E12/L Normal 4.00 - 5.20 [facility] Comment on above: Performed By: #### C BCDF #### [facility] [address] [place] [address] WBC (Bld) [#/Vol] 7.0 10*3/uL Normal 4.4 - 11.3 [facility] Comment on above: Performed By: #### C BCDF #### [facility] [address] [place] [address] COMPREHENSIVE PANELon 2022 Albumin [Mass/Vol] 4.4 g/dL Normal 3.4 - 5.0 [facility] Comment on above: Performed By: #### T HYDS #### [facility] [address] [place] [address] ALP [Catalytic activity/Vol] 84 U/L Normal 33 - 136 [facility] Comment on above: Performed By: #### T HYDS #### [facility] [address] [place] [address] ALT [Catalytic activity/Vol] 14 U/L Normal 7 - 45 [facility] Comment on above: Result Comment: Suzanne ents treated with Sulfasalazine may generate falsely decreased results for ALT. Performed By: #### T HYDS #### [facility] [address] [place] [address] Anion gap [Moles/Vol] 17 mmol/L Normal 10 - 20 [facility] Comment on above: Performed By: #### T HYDS #### [facility] [address] [place] [address] AST [Catalytic activity/Vol] 17 U/L Normal 9 - 39 [facility] Comment on above: Performed By: #### T HYDS #### [facility] [address] [place] [address] Bilirubin [Mass/Vol] 0.6 mg/dL Normal 0.0 - 1.2 [facility] Comment on above: Performed By: #### T HYDS #### [facility] [address] [place] [address] Calcium [Mass/Vol] 9.3 mg/dL Normal 8.6 - 10.6 [facility] Comment on above: Performed By: #### T HYDS #### [facility] [address] [place] [address] Chloride [Moles/Vol] 104 mmol/L Normal 98 - 107 [facility] Comment on above: Performed By: #### T HYDS #### [facility] [address] [place] [address] Creatinine [Mass/Vol] 0.69 mg/dL Normal 0.50 - 1.05 [facility] Comment on above: Performed By: #### T HYDS #### [facility] [address] [place] [address] GFR/1.73 sq M.predicted among non-blacks MDRD (S/P/Bld) [Vol rate/Area] 89 mL/min/{1.73_m2} Normal >90 [facility] Comment on above: Result Comment: CALC ULATIONS OF ESTIMATED GFR ARE PERFORMED USING THE 2020 CKD-EPI STUDY REFIT EQUATION WITHOUT THE RACE VARIABLE FOR THE IDMS-TRACEABLE CREATININE METHODS. https://jasn.asnjournals.org/content//ASN.2020 689618 Performed By: #### T HYDS #### [facility] [address] [place] [address] Glucose [Mass/Vol] 83 mg/dL Normal 74 - 99 [facility] Comment on above: Performed By: #### T HYDS #### [facility] [address] [place] [address] HCO3 (Bld) [Moles/Vol] 26 mmol/L Normal 21 - 32 [facility] Comment on above: Performed By: #### T HYDS #### [facility] [address] [place] [address] Potassium [Moles/Vol] 4.2 mmol/L Normal 3.5 - 5.3 [facility] Comment on above: Performed By: #### T HYDS #### [facility] [address] [place] [address] Protein [Mass/Vol] 7.0 g/dL Normal 6.4 - 8.2 [facility] Comment on above: Performed By: #### T HYDS #### [facility] [address] [place] [address] Sodium [Moles/Vol] 143 mmol/L Normal 136 - 145 [facility] Comment on above: Performed By: #### T HYDS #### [facility] [address] [place] [address] Urea nitrogen [Mass/Vol] 17 mg/dL Normal 6 - 23 [facility] Comment on above: Performed By: #### T HYDS #### [facility] [address] [place] [address] TSH WITH REFLEX TO FREE T4 I F ABNORMALon 02-06-2023 TSH Qn 2.70 m[IU]/L Normal 0.44 - 3.98 [facility] Comment on above: Result Comment: TSH testing is performed using different testing methodology at [facility] than at other [facility]. Direct result comparisons should only be made within the same method. Performed By: #### T HYDS #### [facility] [address] [place] [address] UA MICROSCOPICon 02-06-2023 Mucus Ql (Urine sed) 1+ /LPF Normal [facility] Comment on above: Performed By: #### T HYDS #### [facility] [address] [place] [address] RBC 2 /HPF Normal 0-5 [facility] Comment on above: Performed By: #### T HYDS #### [facility] [address] [place] [address] SQUAMOUS EPITH. CELLS 3 /HPF Normal [facility] Comment on above: Performed By: #### T HYDS #### [facility] [address] [place] [address] WBC 6 /HPF Abnormal 0-5 [facility] Comment on above: Performed By: #### T HYDS #### [facility] [address] [place] [address] URINALYSISon 02-06-2023 Appearance (U) CLEAR Normal CLEAR [facility] Comment on above: Performed By: #### U A #### [facility] [address] [place] [address] Bilirubin Ql (U) Negative Normal NEGATIVE [facility] Comment on above: Performed By: #### U A #### [facility] [address] [place] [address] Color (U) YELLOW Normal STRAW,YELLO W [facility] Comment on above: Performed By: #### U A #### [facility] [address] [place] [address] Glucose Ql (U) Negative Normal NEGATIVE [facility] Comment on above: Performed By: #### U A #### [facility] [address] [place] [address] Hemoglobin Ql (U) Negative Normal NEGATIVE [facility] Comment on above: Performed By: #### U A #### [facility] [address] [place], [place] Ketones Ql (U) Negative Normal NEGATIVE [facility] Comment on above: Performed By: #### U A #### [facility] [address] [place] Leukocyte esterase Test strip Ql (U) LARGE (3+) Abnormal NEGATIVE [facility] Comment on above: Performed By: #### U A #### [facility] [address] [place] Nitrite Ql (U) Negative Normal NEGATIVE [facility] Comment on above: Performed By: #### U A #### [facility] [address] [place] pH (U) 7.0 [pH] Normal 5.0 - 8.0 [facility] Comment on above: Performed By: #### U A #### [facility] [address] [place] Protein Ql (U) Negative Normal NEGATIVE [facility] Comment on above: Performed By: #### U A #### [facility] [address] [place] Specific gravity (U) [Rel density] 1.011 Normal 1.005 - 1.035 [facility] Comment on above: Performed By: #### U A #### [facility] [address] [place] Urobilinogen (U) [Mass/Vol] mg/dL Normal 0.0 - 1.9 [facility] Comment on above: Performed By: #### U A #### [facility] [address] [place], [place] CBC AND DIFFERENTIALon 02-05 Lab Specimen Source Normal [facility] [place] Comment on above: Performed By: #### C BCDF #### [facility] [address] [place] [address] Performed By: #### U A #### [facility] [address] [place] Performed By: #### B NP2 #### [facility] [address] [place] [id number] Performed By: #### T HYDS #### [address] [place] [address] LEE DIAGNOSTIC LEFTon 2022 [facility] US BIOPSY BREAST LEFTon 08-0 [facility] LEE DIAG W SHIVA LEFTon 01-21 [facility] No Panel Informationon 01-21 [facility] Dermatopathologyon Dermatopathology Name MADIHA PERALES Pathologist: ARCHIE MORENO MD Date of Procedure: 10/30/2022 Date Received: 10/31/2022 Date Reported 11/01/2022 Submitting Physician: DARA SORENSEN DO Location: Other External # FINAL DIAGNOSIS SKIN, MID UPPER BACK, BIOPSY: INFLAMED SEBORRHEIC KERATOSIS, PRESENT ON THE DEEP AND PERIPHERAL MARGIN. Electronically Signed Out by ARCHIE MORENO M.D. Electronically Signed Out By ARCHIE MORENO MD/[facility] By the signature on this report, the individual or group listed as making the Final Interpretation/Diagno sis certifies that they have reviewed this case. Diagnostic interpretation performed at [facility] [address] [place] [address], [place] [address] Microscopic Description: Microscopic analysis shows a papillomatous [...] is a butler piece of skin measuring [id number]. The specimen is inked and embedded in toto. ncp/11/01/2022 [facility] [place], [place] [address] [place] [address] Normal [facility] Comment on above: Performed By: #### T HYDS #### [address] [place] [id number] Shaving Epidermal/Dermalon 0 5-10-2023 Dorian Alicea 10/30/2022 10:48 AM Shaving Epidermal/Dermal [...] The patient was given instructions for aftercare. [facility] Work Phone: [facility] Work Phone: UA MICROSCOPICon 07-18-2022 RBC None Normal 0-5 [facility] Comment on above: Performed By: #### U AMIC #### [facility] [address] [place] [address] WBC None Normal 0-5 [facility] Comment on above: Performed By: #### U AMIC #### [facility] [address] [place] [address] URINALYSISon 07-18-2022 Appearance (U) CLEAR Normal CLEAR [facility] Comment on above: Performed By: #### U A #### [facility] [address] [place] [address] Bilirubin Ql (U) Negative Normal NEGATIVE [facility] Comment on above: Performed By: #### U A #### [facility] [address] [place] [address] Color (U) YELLOW Normal STRAW,YELLO W [facility] Comment on above: Performed By: #### U A #### [facility] [address] [place] [address] Glucose Ql (U) Negative Normal NEGATIVE [facility] Comment on above: Performed By: #### U A #### [facility] [address] [place] [address] Hemoglobin Ql (U) TRACE Abnormal NEGATIVE [facility] Comment on above: Performed By: #### U A #### [facility] [address] [place] [address] Ketones Ql (U) Negative Normal NEGATIVE [facility] Comment on above: Performed By: #### U A #### [facility] [address] [place] [address] Leukocyte esterase Test strip Ql (U) Negative Normal NEGATIVE [facility] Comment on above: Performed By: #### U A #### [facility] [address] [place] [address] Nitrite Ql (U) Negative Normal NEGATIVE [facility] Comment on above: Performed By: #### U A #### [facility] [address] [place] [address] pH (U) 7.0 [pH] Normal 5.0 - 8.0 [facility] Comment on above: Performed By: #### U A #### [facility] [address] [place] [address] Protein Ql (U) Negative Normal NEGATIVE [facility] Comment on above: Performed By: #### U A #### [facility] [address] [place] [address] Specific gravity (U) [Rel density] 1.025 Normal 1.005 - 1.035 [facility] Comment on above: Performed By: #### U A #### [facility] [address] [place] [address] Urobilinogen (U) [Mass/Vol] mg/dL Normal 0.0 - 1.9 [facility] Comment on above: Performed By: #### U A #### [facility] [address] [place] [address] Urinalysison 07-18-2022 Color (U) YELLOW See Below [facility] Work Phone: Comment on above: Reference Range: STR AW,YELLOW Glucose Ql (U) Negative NEGATIVE [facility] Work Phone: Ketones Ql (U) Negative NEGATIVE [facility] Work Phone: Leukocyte esterase Test strip Ql (U) Negative NEGATIVE [facility] Work Phone: pH (U) 7.0 [pH] 5.0 - 8.0 [facility] Work Phone: Protein (U) [Mass/Vol] Negative NEGATIVE [facility] Work Phone: RBC (U) [#/Vol] TRACE Abnormal NEGATIVE [facility] Work Phone: Specific gravity (U) [Rel density] 1.025 1 See Below [facility] Work Phone: Comment on above: Reference Range: 1.0 05 - 1.035 Urinalysis Negative NEGATIVE -[facility] Work Phone: Urinalysis <2.0 0.0 - 1.9 [facility] Work Phone: Urinalysis CLEAR CLEAR -[facility] Work Phone: Urinalysis, Microscopicon Urinalysis, Microscopic None 0-5 [facility] Work Phone: CBC AND DIFFERENTIALon 07-17 % AUTOMATED IMMATURE GRAN 0.5 % Normal 0.0 - 0.9 [facility] Comment on above: Result Comment: Charo ture Granulocyte Count (IG) includes promyelocytes, myelocytes and metamyelocytes but does not include bands. Percent differential counts (%) should be interpreted in the context of the absolute cell counts (cells/L). Performed By: #### C BCDF #### [facility] [address] [place] [address] Basophils (Bld) [#/Vol] 0.03 10*3/uL Normal 0.00 - 0.1 0 [facility] [facility] Comment on above: Performed By: #### C BCDF #### [facility] [address] [place] [address] Eosinophils (Bld) [#/Vol] 0.18 10*3/uL Normal 0.00 - 0.40 [facility] Comment on above: Performed By: #### C BCDF #### [facility] [address] [place] [address] Eosinophils/100 WBC (Bld) 2.8 % Normal 0.0 - 6.0 [facility] Comment on above: Performed By: #### C BCDF #### [facility] [address] [place] [address] Lymphocytes (Bld) [#/Vol] 1.45 10*3/uL Normal 0.80 - 3.00 [facility] Comment on above: Performed By: #### C BCDF #### [facility] [address] [place] [address] Monocytes (Bld) [#/Vol] 0.66 10*3/uL Normal 0.05 - 0.8 0 [facility] Comment on above: Performed By: #### C BCDF #### [facility] [address] [place] [address] Neutrophils (Bld) [#/Vol] 4.08 10*3/uL Normal 1.60 - 5.50 [facility] Comment on above: Performed By: #### C BCDF #### [facility] [address] [place] [address] NUCLEATED RBC 0.0 /100 WBC Normal 0.0-0.0 [facility] Comment on above: Performed By: #### C BCDF #### [facility] [address] [place] [address] RBC 4.48 x10E12/L Normal 4.00 - 5.20 [facility] Comment on above: Performed By: #### C BCDF #### [facility] [address] [place] [address] COMPREHENSIVE PANELon 2022 Albumin [Mass/Vol] 4.0 g/dL Normal 3.4 - 5.0 [facility] Comment on above: Performed By: #### C MP #### [facility] [address] [place] [address] ALP [Catalytic activity/Vol] 89 U/L Normal 33 - 136 [facility] Work Phone: Comment on above: Performed By: #### C MP #### [facility] [address] [place] [address] ALT [Catalytic activity/Vol] 15 U/L Normal 7 - 45 [facility] Comment on above: Result Comment: Suzanne ents treated with Sulfasalazine may generate falsely decreased results for ALT. Performed By: #### C MP #### [facility] [address] [place] [address] Anion gap [Moles/Vol] 12 mmol/L Normal 10 - 20 [facility] Work Phone: Comment on above: Performed By: #### C MP #### [facility] [address] [place] [address] AST [Catalytic activity/Vol] 17 U/L Normal 9 - 39 [facility] Comment on above: Performed By: #### C MP #### [facility] [address] [place] [address] Bilirubin [Mass/Vol] 0.7 mg/dL Normal 0.0 - 1.2 [facility] Work Phone: Comment on above: Performed By: #### C MP #### [facility] [address] [place] [address] Calcium [Mass/Vol] 9.3 mg/dL Normal 8.6 - 10.6 [facility] Work Phone: Comment on above: Performed By: #### C MP #### [facility] [address] [place] [address] Chloride [Moles/Vol] 105 mmol/L Normal 98 - 107 [facility] Work Phone: Comment on above: Performed By: #### C MP #### [facility] [address] [place] [address] Creatinine [Mass/Vol] 0.66 mg/dL Normal 0.50 - 1.05 [facility] Work Phone: Comment on above: Reference Range: 0.5 0 - 1.05 Performed By: #### C MP #### [facility] [address] [place] [address] eGFR FEMALE >90 Normal >90 [facility] Comment on above: Result Comment: CALC ULATIONS OF ESTIMATED GFR ARE PERFORMED USING THE 2020 CKD-EPI STUDY REFIT EQUATION WITHOUT THE RACE VARIABLE FOR THE IDMS-TRACEABLE CREATININE METHODS. https://jasn.asnjournals.org/content/early/ASN.2020 347004 Performed By: #### C MP #### [facility] [address] [place] [address] Glucose [Mass/Vol] 78 mg/dL Normal 74 - 99 [facility] Work Phone: Comment on above: Performed By: #### C MP #### [facility] [address] [place] [address] HCO3 (Bld) [Moles/Vol] 31 mmol/L Normal 21 - 32 [facility] Comment on above: Performed By: #### C MP #### [facility] [address] [place] [address] Potassium [Moles/Vol] 4.2 mmol/L Normal 3.5 - 5.3 [facility] Work Phone: Comment on above: Performed By: #### C MP #### [facility] [address] [place] [address] Protein [Mass/Vol] 6.7 g/dL Normal 6.4 - 8.2 [facility] Work Phone: Comment on above: Performed By: #### C MP #### [facility] [address] [place] [address] Sodium [Moles/Vol] 144 mmol/L Normal 136 - 145 [facility] Work Phone: Comment on above: Performed By: #### C MP #### [facility] [address] [place] [address] Urea nitrogen [Mass/Vol] 15 mg/dL Normal 6 - 23 [facility] Work Phone: Comment on above: Performed By: #### C MP #### [facility] [address] [place] [address] Complete Blood Count + Diffe rentialon 07-17-2022 Basophils/100 WBC (Bld) 0.5 % Normal 0.0 - 2.0 [facility] Work Phone: Comment on above: Performed By: #### C BCDF #### [facility] [address] [place] [address] Erythrocyte distribution width (RBC) [Ratio] 14.1 % Normal 11.5 - 14.5 [facility] Work Phone: Comment on above: Reference Range: 11. 5 - 14.5 Performed By: #### C BCDF #### [facility] [address] [place] [address] Hematocrit (Bld) [Volume fraction] 42.8 % Normal 36.0 - 46.0 [facility] Work Phone: Comment on above: Reference Range: 36. 0 - 46.0 Performed By: #### C BCDF #### [facility] [address] [place] [address] Hemoglobin (Bld) [Mass/Vol] 13.5 g/dL Normal 12.0 - 16.0 [facility] Work Phone: Comment on above: Reference Range: 12. 0 - 16.0 Performed By: #### C BCDF #### [facility] [address] [place] [address] Lymphocytes/100 WBC (Bld) 22.6 % Normal 13.0 - 44.0 [facility] Work Phone: Comment on above: Reference Range: 13. 0 - 44.0 Performed By: #### C BCDF #### [facility] [address] [place] [address] MCHC (RBC) [Mass/Vol] 31.5 g/dL Low 32.0 - 36.0 [facility] Work Phone: Comment on above: Reference Range: 32. 0 - 36.0 Performed By: #### C BCDF #### [facility] [address] [place] [address] MCV (RBC) [Entitic vol] 96 fL Normal 80 - 100 M [facility] Work Phone: Comment on above: Performed By: #### C BCDF #### [facility] [address] [place] [address] Monocytes/100 WBC (Bld) 10.3 % Normal 2.0 - 10.0 M [facility] Work Phone: Comment on above: Performed By: #### C BCDF #### [facility] [address] [place] [address] Neutrophils/100 WBC (Bld) 63.3 % Normal 40.0 - 80.0 [facility] Work Phone: Comment on above: Reference Range: 40. 0 - 80.0 Performed By: #### C BCDF #### [facility] [address] [place] [address] Platelets (Bld) [#/Vol] 208 10*3/uL Normal 150 - 450 [facility] Work Phone: Comment on above: Performed By: #### C BCDF #### [facility] [address] [place] [address] WBC (Bld) [#/Vol] 6.4 10*3/uL Normal 4.4 - 11.3 [facility] Work Phone: Comment on above: Performed By: #### C BCDF #### [facility] [address] [place] [address] RBC (Bld) [#/Vol] 4.48 {x10E12/L} See Below [facility] Work Phone: Comment on above: Reference Range: 4.0 0 - 5.20 Complete Blood Count + Differential 0.03 {x10E9/L} See Below [facility] Work Phone: Comment on above: Reference Range: 0.0 0 - 0.10 Complete Blood Count + Differential 0.18 {x10E9/L} See Below [facility] Work Phone: Comment on above: Reference Range: 0.0 0 - 0.40 Complete Blood Count + Differential 0.66 {x10E9/L} See Below [facility] Work Phone: Comment on above: Reference Range: 0.0 5 - 0.80 Complete Blood Count + Differential 1.45 {x10E9/L} See Below [facility] Work Phone: Comment on above: Reference Range: 0.8 0 - 3.00 Complete Blood Count + Differential 4.08 {x10E9/L} See Below [facility] Work Phone: Comment on above: Reference Range: 1.6 0 - 5.50 Complete Blood Count + Differential 2.8 % 0.0 - 6.0 [facility] Work Phone: Complete Blood Count + Differential 0.5 % 0.0 - 0.9 [facility] Work Phone: Comment on above: Immature Granulocyte Count (IG) includes promyelocytes, myelocytes and metamyelocytes but does not include bands. Percent differential counts (%) should be interpreted in the context of the absolute cell counts (cells/L). Complete Blood Count + Differential 0.0 {/100_WBC} 0.0-0.0 [facility] Work Phone: LIPID PANEL (CORONARY RISK 2 )on 07-17-2022 Cholesterol in VLDL [Mass/Vol] 18 mg/dL Normal 0 - 40 [facility] Comment on above: Performed By: #### L IPID #### [facility] [address] [place] [address] Laboratory - Chemistry and C hemistry - challengeon 07-17-2022 Albumin BCP dye [Mass/Vol] 4.0 g/dL 3.4 - 5.0 [facility] Work Phone: ALT With P-5'-P [Catalytic activity/Vol] 15 U/L 7 - 45 [facility] Work Phone: Comment on above: Patients treated wit h Sulfasalazine may generate falsely decreased results for ALT. AST With P-5'-P [Catalytic activity/Vol] 17 U/L 9 - 39 [facility] Work Phone: CO2 [Moles/Vol] 31 mmol/L 21 - 32 [facility] Work Phone: Lipid Panelon 07-17-2022 Cholesterol [Mass/Vol] 151 mg/dL Normal 0 - 199 [facility] Work Phone: Comment on above: [...] on patient-specific cardiac risk.. Pediatric guidelines reference:Pediatrics 2010, 128(S5). Adult guidelines reference: NCEP ATPIII Guidelines, [...] Performed By: #### L IPID #### [facility] [address] [place] [address] Cholesterol in HDL [Mass/Vol] 52.6 mg/dL Normal [facility] Work Phone: Comment on [...] Performed By: #### L IPID #### [facility] [address] [place] [address] Cholesterol in LDL [Mass/Vol] 80 mg/dL Normal 0 - 99 [facility] Work Phone: Comment on [...] Performed By: #### L IPID #### [facility] [address] [place] [address] Cholesterol.total/Morenita sterol in HDL [Mass ratio] 2.9 {ratio} Normal [facility] Work Phone: Comment on above: REF VALUESDESIRABLE < 3.4HIGH RISK > 5.0 Result Comment: REF VALUES DESIRABLE < 3.4 HIGH RISK > 5.0 Performed By: #### L IPID #### [facility] [address] [place] [address] Triglyceride [Mass/Vol] 90 mg/dL Normal 0 - 149 [facility] Work Phone: Comment on above: [...] Performed By: #### L IPID #### [facility] [address] [place] [address] Lipid Panel 18 mg/dL 0 - 40 [facility] Work Phone: No Panel Informationon 07-17 >90 >90 [facility] Work Phone: Comment on above: CALCULATIONS OF MATEO MATED GFR ARE PERFORMED USING THE 2020 CKD-EPI STUDY REFIT EQUATION WITHOUT THE RACE VARIABLE FOR THE IDMS-TRACEABLE CREATININE METHODS.https://jasn.asnjournals.org/content/early/ ASN.8627157914 Not at all - 0 [facility] Work Phone: Several days - 1 [facility] Work Phone: Minimal Anxiety [facility] Work Phone: Not difficult at all [facility]LL[facility] bush [facility] Work Phone: Comment on above: How difficult have t hose problems made it for you to do your work, take care of things at home, or get along with other people? 1 1 [facility] Work Phone: [...] PHQ-9on 07-17-2022 Adult depression screening assessment No [facility] Work Phone: Adult depression screening assessment Yes [facility] Work Phone: PHQ-9 0-Not at all [facility] Work Phone: PHQ-9 Large [facility] Work Phone: TSH WITH REFLEX TO FREE T4 I F ABNORMALon 07-17-2022 TSH Qn 2.65 m[IU]/L Normal 0.44 - 3.98 [facility] Work Phone: Comment on above: Reference Range: 0.4 4 - 3.98 TSH testing is performed using different testing methodology at [facility] than at other [facility]. Direct result comparisons should only be made within the same method. Result Comment: TSH testing is performed using different testing methodology at [facility] than at other [facility]. Direct result comparisons should only be made within the same method. Performed By: #### T HYDS #### [facility] [address] [place] [address] URINALYSISon 07-17-2022 ASCORBIC ACID Canceled Normal [facility] Comment on above: Order Comment: TEST URINALYSIS WAS CANCELLED, 07/17/2022 08:36 pt to return w sample. Result Comment: Conc entrations > = 20 mg/dL of ascorbic acid can be expected to cause strong interference in the reactions testing for glucose, nitrite and blood. It is recommended to discontinue Vitamin C administration and retest in 10 hours. Performed By: #### U A #### [facility] [address] [place] [address] Bilirubin Ql (U) Canceled Normal [facility] Comment on above: Order Comment: TEST URINALYSIS WAS CANCELLED, 07/17/2022 08:36 pt to return w sample. Performed By: #### U A #### [facility] [address] [place] [address] Hemoglobin Ql (U) Canceled Normal [facility] Comment on above: Order Comment: TEST URINALYSIS WAS CANCELLED, 07/17/2022 08:36 pt to return w sample. Performed By: #### U A #### [facility] [address] [place] [address] Nitrite Ql (U) Canceled Normal [facility] Comment on above: Order Comment: TEST URINALYSIS WAS CANCELLED, 07/17/2022 08:36 pt to return w sample. Performed By: #### U A #### [facility] [address] [place] [address] pH Canceled Normal [facility] Comment on above: Order Comment: TEST URINALYSIS WAS CANCELLED, 07/17/2022 08:36 pt to return w sample. Performed By: #### U A #### [facility] [address] [place] [address] Protein Ql (U) Canceled Normal [facility] Comment on above: Order Comment: TEST URINALYSIS WAS CANCELLED, 07/17/2022 08:36 pt to return w sample. Performed By: #### U A #### [facility] [address] [place] [address] UROBILINOGEN Canceled Normal [facility] Comment on above: Order Comment: TEST URINALYSIS WAS CANCELLED, 07/17/2022 08:36 pt to return w sample. Performed By: #### U A #### [facility] [address] [place] [address] Urinalysison 07-17-2022 Appearance (U) Canceled Normal [facility] Work Phone: Comment on above: Order Comment: TEST URINALYSIS WAS CANCELLED, 07/17/2022 08:36 pt to return w sample. Performed By: #### U A #### [facility] [address] [place] [address] Color (U) Canceled Normal [facility] Work Phone: Comment on above: Order Comment: TEST URINALYSIS WAS CANCELLED, 07/17/2022 08:36 pt to return w sample. Performed By: #### U A #### [facility] [address] [place] [address] Glucose Ql (U) Canceled Normal [facility] Work Phone: Comment on above: Order Comment: TEST URINALYSIS WAS CANCELLED, 07/17/2022 08:36 pt to return w sample. Performed By: #### U A #### [facility] [address] [place] [address] Ketones Ql (U) Canceled Normal [facility] Work Phone: Comment on above: Order Comment: TEST URINALYSIS WAS CANCELLED, 07/17/2022 08:36 pt to return w sample. Performed By: #### U A #### [facility] [address] [place] [address] Leukocyte esterase Test strip Ql (U) Canceled Normal [facility] Work Phone: Comment on above: Order Comment: TEST URINALYSIS WAS CANCELLED, 07/17/2022 08:36 pt to return w sample. Performed By: #### U A #### [facility] [address] [place] [address] Specific gravity (U) [Rel density] Canceled Normal [facility] Work Phone: Comment on above: Order Comment: TEST URINALYSIS WAS CANCELLED, 07/17/2022 08:36 pt to return w sample. Performed By: #### U A #### [facility] [address] [place] [address] Protein (U) [Mass/Vol] Canceled [facility] Work Phone: RBC (U) [#/Vol] Canceled [facility] Work Phone: Urinalysis Canceled [facility] Work Phone: Comment on above: Concentrations > = 2 0 mg/dL of ascorbic acid can be expected to cause strong interference in the reactions testing for glucose, nitrite and blood. It is recommended to discontinue Vitamin C administration and retest in 10 hours. Blood Pressure Cuff Sizeon 0 01-10-2022 Adult depression screening assessment No [facility] Work Phone: Blood Pressure Cuff Size Large [facility] Work Phone: No Panel Informationon 01-10 Not at all - 0 [facility] Work Phone: Minimal Anxiety [facility] Work Phone: 0 1 [facility] Work Phone: [...] all - 0 Office Visit (Family Kathleen sam)on 01-10-2022 Follow-up visit Diagnoses/Problems Depression with anxiety [...] June, all reassuring. 'Scores and Scales' PHQ-9 [id number] 07:39AM PHQ-9 Depression Severity PHQ-9 #1. Little [...] problem list based on total score)4 CLIFTON-7 [id number] CLIFTON-7 Total Score0 Feeling nervous, anxious or [...] not included)... Normal Touchworks LEE SCREENINGon 09-21-2021 [facility] Radiologyon 09-21-2021 [facility] Breast Screening * * *Final Report* * * DATE OF EXAM: Sep 21 2021 8:28AM [facility] 0581 - LEE SCREENING / PROCEDURE REASON: Z12.31 MAMMOGRAM SCREENING * * * * Physician Interpretation * * * * #[id number] - LEE SCREENING BILATERAL DIGITA Normal [facility] Work Phone: Blood Pressure Cuff Sizeon 0 07-12-2021 Blood Pressure Cuff Size Adult [facility] Work Phone: Laboratory - Chemistry and C hemistry - count includes the [facility] 07-12-2021 Albumin BCP dye [Mass/Vol] 4.1 g/dL 3.4 - 5.0 [facility] Work Phone: [phone] ALP [Catalytic activity/Vol] 80 U/L 33 - 136 [facility] Work Phone: ALT With P-5'-P [Catalytic activity/Vol] 13 U/L 7 - 45 [facility] Work Phone: [phone] Comment on above: Patients treated wit h Sulfasalazine may generate falsely decreased results for ALT. Anion gap [Moles/Vol] 12 mmol/L 10 - 20 [facility] Work Phone: AST With P-5'-P [Catalytic activity/Vol] 15 U/L 9 - 39 [facility] Work Phone: Bilirubin [Mass/Vol] 0.6 mg/dL 0.0 - 1.2 [facility] Work Phone: Calcium [Mass/Vol] 9.0 mg/dL 8.6 - 10.6 [facility] Work Phone: Chloride [Moles/Vol] 105 mmol/L 98 - 107 [facility] Work Phone: CO2 [Moles/Vol] 31 mmol/L 21 - 32 [facility] Work Phone: Creatinine [Mass/Vol] 0.63 mg/dL See Below [facility] Work Phone: Comment on above: Reference Range: 0.5 0 - 1.05 Glucose [Mass/Vol] 85 mg/dL 74 - 99 [facility] Work Phone: Potassium [Moles/Vol] 4.1 mmol/L 3.5 - 5.3 [facility] Work Phone: Protein [Mass/Vol] 6.6 g/dL 6.4 - 8.2 [facility] Work Phone: Sodium [Moles/Vol] 144 mmol/L 136 - 145 [facility] Work Phone: Urea nitrogen [Mass/Vol] 18 mg/dL 6 - 23 [facility] Work Phone: Medicare Annual Wellness Vis basia 07-12-2021 Medicare Annual Wellness Visit *Chief Complaint Medicare Wellness, fasting, high dose flu shot , brochure given, consent signed Follow up depression/anxiety Influenza Vaccine No to all questions Patient answered all questions prior to immunization 1: Have you ever had Guillain-[place] syndrome? (a viral illness resulting in neurological [...] above in HPI. 'Scores and Scales' PHQ-9 [id number] 07:[id number] 06:50AM PHQ-9 Depression Severity IO PHQ2 PHQ-9 [...] Touchworks No Panel Informationon 07-12 >90 >90 [facility] Work Phone: Comment on above: CALCULATIONS OF MATEO MATED GFR ARE PERFORMED USING THE 2020 CKD-EPI STUDY REFIT EQUATION WITHOUT THE RACE VARIABLE FOR THE IDMS-TRACEABLE CREATININE METHODS.https://jasn.asnjournals.org/content/early// ASN.0215740932 PHQ-9on 07-12-2021 PHQ-9 1-Several days [facility] Work Phone: PHQ-9 0-Not at all [facility] Work Phone: PHQ-9 Not difficult at all [facility] Work Phone: Blood Pressure Cuff Sizeon 0 7-21-2021 Blood Pressure Cuff Size Large [facility] Work Phone: Otheron 08-15-2020 MG Breast screening * * *Final Report* * *DATE OF EXAM: Aug 15 2020 10:11AM [facility] 0581 - [place] SCREENING / REASON: Z06.22 SCREENING * * * * Physician Interpretation * * * * #[id number] - LEE SCREENINGBILATERAL DIGITAL SCREENING MAMMOGRAM WITH CAD: 08/15/2020HISTORY: Z06.22 Screening / Screening Mammogram-Patient reports NO symptoms.RESULT:TECHN IQUE: The study was acquired using full field digital technology and interpreted from soft copy.Current study was also evaluated with a Computer Aided Detection (CAD).Comparison is made to exams dated: 08/13/2019 mammogram, 06/25/2018 mammogram, and 06/06/2017 mammogram - [facility]. There are scattered fibroglandular elements in both breasts.There are benign post operative findings in the left breast.No significant masses, calcifications, or other findings are seen in either breast.There has been no significant interval change.IMPRESSION: BENIGN FINDINGThere is no mammographic evidence of malignancy. A 1 year screening mammogram is recommended.Marcos Aguilar/zara:08/15/19 11:03:31Imaging Technologist(s): RT Dori(Alanna)(M), [facility]: Normal over 40Mammogram BI-RADS: [...] Health, Family Medicine, and Medical/Surgical Oncology, the [facility] has carefully reviewed the data and reached [...] providers when to stop screening mammograms.Transcript ionist: Dominga Date/Time: Aug 15 2020 9:59ADictated by : MARCOS CAO MDThideepa examination was interpreted and the report reviewed and electronically signed by: MARCOS CAO MD on Aug 15 2020 11:03AM [id number]\\S\\[id number] DC Normal [facility] Work Phone: Comment on above: Ordering Provider: Dorian Devi Antithyroid Perox. Abon 12-21 TPO Ab Qn [IU]/mL [facility] Work Phone: Comment on above: Negative: <=60 U/mLP ositive: >60 U/mL T3 - Free Triiodothyronine, Serumon 01-06-2020 Free T3 [Mass/Vol] 2.8 pg/mL 2.3 - 4.2 [facility] Work Phone: T4 - Free Thyroxine, Serumon 01-06-2020 Free T4 [Mass/Vol] 0.85 ng/dL See Below [facility] Work Phone: Comment on above: Reference Range: 0.7 8 - 1.48 Thyroxine Free testing is performed using different testing methodology at [facility] than at other [facility]. Direct result comparisons should only be made within the same method. TSH - Thyroid Stimulating Ho rmone, Serumon 01-06-2020 TSH Qn 4.54 {mIU/L} above high threshold See Below [facility] Work Phone: Comment on above: Reference Range: 0.4 4 - 3.98 TSH testing is performed using different testing methodology at [facility] than at other [facility]. Direct result comparisons should only be made within the same method. Vital Signs Date Time Vital Sign Value Performing Clinician Facility 01-03-2025 10:36-0400 Body mass index (BMI) [Ratio] 33.25 kg/m2 Sara Ramey APRN.MACHINE TECH Work Phone: [facility] 01-03-2025 10:36-0400 Body weight 93.44 kg Sara Hollaender OPTICAL ENGINEERING TECHNICIAN.MACHINE TECH Work Phone: [facility] 01-03-2025 10:36-0400 Diastolic blood pressure 71 mm[Hg] Sara Hollaender OPTICAL ENGINEERING TECHNICIAN.MACHINE TECH Work Phone: [facility] 01-03-2025 10:36-0400 Heart rate 76 /min Sara Hollaender OPTICAL ENGINEERING TECHNICIAN.MACHINE TECH Work Phone: [facility] 01-03-2025 10:36-0400 Respiratory rate 16 /min Sara Hollaender OPTICAL ENGINEERING TECHNICIAN.MACHINE TECH Work Phone: [facility] 01-03-2025 10:36-0400 Systolic blood pressure 103 mm[Hg] Sara Hollaender OPTICAL ENGINEERING TECHNICIAN.MACHINE TECH Work Phone: [facility] 09-17-2024 14:10-0400 Body height 165.1 cm Leonardo Stanec DO Work Phone: [facility] 09-17-2024 14:10-0400 Body mass index (BMI) [Ratio] 34.5 kg/m2 Leonardo Stanec DO Work Phone: [facility] 09-17-2024 14:10-0400 Body temperature 98.01 [degF] Leonardo Stanec DO Work Phone: [facility] 09-17-2024 14:10-0400 Body weight 94.03 kg Leonardo Stanec DO Work Phone: [facility] 09-17-2024 14:10-0400 Diastolic blood pressure 73 mm[Hg] Leonardo Stanec DO Work Phone: [facility] 09-17-2024 14:10-0400 Heart rate 73 /min Leonardo Stanec DO Work Phone: [facility] 09-17-2024 14:10-0400 SaO2% (BldA) [Mass fraction] 94 % Leonardo Stanec DO Work Phone: [facility] 09-17-2024 14:10-0400 Systolic blood pressure 109 mm[Hg] Leonardo Stanec DO Work Phone: [facility] 08-10-2024 09:28-0500 Body height 165.1 cm Stevie Fanny DO Work Phone: [facility] [employer] 08-10-2024 09:28-0500 Body mass index (BMI) [Ratio] 34.1 kg/m2 Stevie Fanny DO Work Phone: [facility] [employer] 08-10-2024 09:28-0500 Body temperature 98.91 [degF] Stevie Fanny DO Work Phone: [facility] [employer] 08-10-2024 09:28-0500 Body weight 92.94 kg Stevie Fanny DO Work Phone: [facility] [employer] 08-10-2024 09:28-0500 Diastolic blood pressure 59 mm[Hg] Stevie Fanny DO Work Phone: [employer] 08-10-2024 09:28-0500 Heart rate 76 /min Stevie Fanny DO Work Phone: [employer] 08-10-2024 09:28-0500 SaO2% (BldA) [Mass fraction] 97 % Stevie Fanny DO Work Phone: [employer] 08-10-2024 09:28-0500 Systolic blood pressure 105 mm[Hg] Stevie Fanny DO Work Phone: [employer] 03-16-2024 13:57-0400 Body height 165.1 cm Stevie Fanny DO Work Phone: [employer] 03-16-2024 13:57-0400 Body mass index (BMI) [Ratio] 33.46 kg/m2 Setvie Fanny DO Work Phone: [employer] 03-16-2024 13:57-0400 Body temperature 97.7 [degF] Stevie Fanny DO Work Phone: [facility] [employer] 03-16-2024 13:57-0400 Body weight 91.22 kg Stevie Fanny DO Work Phone: [facility] [employer] 03-16-2024 13:57-0400 Diastolic blood pressure 82 mm[Hg] Stevie Fanny DO Work Phone: [facility] [employer] 03-16-2024 13:57-0400 Heart rate 82 /min Stevie Fanny DO Work Phone: [facility] [employer] 03-16-2024 13:57-0400 Respiratory rate 20 /min Stevie Fanny DO Work Phone: [facility] [employer] 03-16-2024 13:57-0400 SaO2% (BldA) [Mass fraction] 96 % Stevie Fanny DO Work Phone: [facility] [employer] 03-16-2024 13:57-0400 Systolic blood pressure 127 mm[Hg] Stevie Fanny DO Work Phone: [facility] [employer] 02-19-2024 09:13-0400 Body height 165.1 cm Torrie Choi MD Work Phone: [facility] 02-19-2024 09:13-0400 Body mass index (BMI) [Ratio] 34.45 kg/m2 Torrie Choi MD Work Phone: [facility] 02-19-2024 09:13-0400 Body weight 93.89 kg Torrie Choi MD Work Phone: [facility] 02-19-2024 09:13-0400 Diastolic blood pressure 84 mm[Hg] Torrie Choi MD Work Phone: [facility] 02-19-2024 09:13-0400 Heart rate 79 /min Torrie Choi MD Work Phone: [facility] 02-19-2024 09:13-0400 SaO2% (BldA) [Mass fraction] 97 % Torrie Choi MD Work Phone: [facility] 02-19-2024 09:13-0400 Systolic blood pressure 124 mm[Hg] Torrie Choi MD Work Phone: [facility] 02-18-2024 06:38-0400 Body mass index (BMI) [Ratio] 34.61 kg/m2 Marie Deiv MD Work Phone: [facility] 02-18-2024 06:38-0400 Body temperature 98.1 [degF] Marie Devi MD Work Phone: [facility] 02-18-2024 06:38-0400 Body weight 94.35 kg Marie Devi MD Work Phone: [facility] 02-18-2024 06:38-0400 Diastolic blood pressure 71 mm[Hg] Marie Devi MD Work Phone: [facility] 02-18-2024 06:38-0400 Heart rate 72 /min Marie Devi MD Work Phone: [facility] 02-18-2024 06:38-0400 SaO2% (BldA) [Mass fraction] 91 % Marie Devi MD Work Phone: [facility] 02-18-2024 06:38-0400 Systolic blood pressure 109 mm[Hg] Marie Devi MD Work Phone: [facility] 02-03-2024 09:30-0400 Body mass index (BMI) [Ratio] 36.17 kg/m2 Stevie Fanny DO Work Phone: [employer] 02-03-2024 09:30-0400 Body temperature 98.4 [degF] Stevie Fanny DO Work Phone: [employer] 02-03-2024 09:30-0400 Body weight 95.57 kg Stevie Fanny DO Work Phone: [facility] [employer] 02-03-2024 09:30-0400 Diastolic blood pressure 63 mm[Hg] Stevie Fanny DO Work Phone: [facility] [employer] 02-03-2024 09:30-0400 Heart rate 80 /min Stevie Fanny DO Work Phone: [facility] [employer] 02-03-2024 09:30-0400 Respiratory rate 18 /min Stevie Fanny DO Work Phone: [facility] [employer] 02-03-2024 09:30-0400 SaO2% (BldA) [Mass fraction] 94 % Stevie Fanny DO Work Phone: [facility] [employer] 02-03-2024 09:30-0400 Systolic blood pressure 124 mm[Hg] Stevie Fanny DO Work Phone: [facility] [employer] 11-11-2023 14:36-0400 Body mass index (BMI) [Ratio] 34.46 kg/m2 Marie Devi MD Work Phone: [facility] 11-11-2023 14:36-0400 Body temperature 98.49 [degF] Marie Devi MD Work Phone: [facility] 11-11-2023 14:36-0400 Body weight 93.94 kg Marie Devi MD Work Phone: [facility] 11-11-2023 14:36-0400 Diastolic blood pressure 77 mm[Hg] Marie Devi MD Work Phone: [facility] 11-11-2023 14:36-0400 Heart rate 82 /min Marie Devi MD Work Phone: [facility] 11-11-2023 14:36-0400 SaO2% (BldA) [Mass fraction] 93 % Marie Devi MD Work Phone: [facility] 11-11-2023 14:36-0400 Systolic blood pressure 130 mm[Hg] Marie Devi MD Work Phone: [facility] 11-04-2023 09:43-0400 Body height 162.6 cm Stevie Schumacherel DO Work Phone: [facility] [employer] 11-04-2023 09:43-0400 Body mass index (BMI) [Ratio] 34.67 kg/m2 Stevie Schulteebel DO Work Phone: [facility] [employer] 11-04-2023 09:43-0400 Body temperature 99 [degF] Stevie Schumacherel DO Work Phone: [facility] [employer] 11-04-2023 09:43-0400 Body weight 91.63 kg Stevie Schumacherel DO Work Phone: [facility] [employer] 11-04-2023 09:43-0400 Diastolic blood pressure 71 mm[Hg] Stevie Schumacherel DO Work Phone: [facility] [employer] 11-04-2023 09:43-0400 Heart rate 81 /min Stevie Schumacherel DO Work Phone: [facility] [employer] 11-04-2023 09:43-0400 SaO2% (BldA) [Mass fraction] 93 % Stevie Escobedo DO Work Phone: [facility] [employer] 11-04-2023 09:43-0400 Systolic blood pressure 117 mm[Hg] Stevie Schumacherel DO Work Phone: [facility] [employer] 09-23-2023 10:12-0400 Body temperature 98.2 [degF] Chair 3 [facility] [employer] 09-23-2023 10:12-0400 Diastolic blood pressure 74 mm[Hg] Chair 3 [facility] [employer] 09-23-2023 10:12-0400 Heart rate 72 /min Chair 3 [facility] [employer] 09-23-2023 10:12-0400 Respiratory rate 20 /min Chair 3 [facility] [employer] 09-23-2023 10:12-0400 SaO2% (BldA) [Mass fraction] 95 % Chair 3 [facility] [employer] 09-23-2023 10:12-0400 Systolic blood pressure 125 mm[Hg] Chair 3 [facility] [employer] 09-23-2023 08:06-0400 Body mass index (BMI) [Ratio] 35.58 kg/m2 Chair 3 [facility] [employer] 09-23-2023 08:06-0400 Body weight 94.03 kg Chair 3 [facility] [employer] 09-18-2023 09:44-0400 Body height 162.6 cm Stevie Fanny DO Work Phone: [facility] [employer] 09-18-2023 09:44-0400 Body mass index (BMI) [Ratio] 35.87 kg/m2 Stevie Fanny DO Work Phone: [facility] [employer] 09-18-2023 09:44-0400 Body weight 94.8 kg Stevie Fanny DO Work Phone: [facility] [employer] 09-12-2023 13:17-0400 Body height 162.6 cm Vicki Diego MD Work Phone: [facility] [employer] 09-12-2023 13:17-0400 Body mass index (BMI) [Ratio] 35.91 kg/m2 Vicki Diego MD Work Phone: [facility] [employer] 09-12-2023 13:17-0400 Body temperature 96.91 [degF] Vicki Diego MD Work Phone: [facility] [employer] 09-12-2023 13:17-0400 Body weight 94.89 kg Vicki Diego MD Work Phone: [facility] [employer] 09-12-2023 13:17-0400 Diastolic blood pressure 80 mm[Hg] Vicki Diego MD Work Phone: [facility] [employer] 09-12-2023 13:17-0400 Heart rate 94 /min Vicki Diego MD Work Phone: [facility] [employer] 09-12-2023 13:17-0400 Respiratory rate 16 /min Vicki Diego MD Work Phone: [facility] [employer] 09-12-2023 13:17-0400 SaO2% (BldA) [Mass fraction] 96 % Vicki Diego MD Work Phone: [facility] [employer] 09-12-2023 13:17-0400 Systolic blood pressure 138 mm[Hg] Vicki Diego MD Work Phone: [facility] [employer] 09-02-2023 11:28-0400 Body temperature 97.81 [degF] Chair 5 [facility] [employer] 09-02-2023 11:28-0400 Diastolic blood pressure 75 mm[Hg] Chair 5 [facility] [employer] 09-02-2023 11:28-0400 Heart rate 77 /min Chair 5 [facility] [employer] 09-02-2023 11:28-0400 Respiratory rate 14 /min Chair 5 [facility] [employer] 09-02-2023 11:28-0400 SaO2% (BldA) [Mass fraction] 94 % Chair 5 [facility] [employer] 09-02-2023 11:28-0400 Systolic blood pressure 124 mm[Hg] Chair 5 [facility] [employer] 09-02-2023 08:51-0400 Body height 165.1 cm Stevie Fanny DO Work Phone: [facility] [employer] 09-02-2023 08:51-0400 Body mass index (BMI) [Ratio] 34.56 kg/m2 Stevie Fanny DO Work Phone: [employer] 09-02-2023 08:51-0400 Body temperature 97.81 [degF] Stevie Fanny DO Work Phone: [employer] 09-02-2023 08:51-0400 Body weight 94.21 kg Stevie Fanny DO Work Phone: [employer] 09-02-2023 08:51-0400 Diastolic blood pressure 71 mm[Hg] Stevie Fanny DO Work Phone: [employer] 09-02-2023 08:51-0400 Heart rate 89 /min Stevie Fanny DO Work Phone: [employer] 09-02-2023 08:51-0400 SaO2% (BldA) [Mass fraction] 91 % Stevie Fanny DO Work Phone: [employer] 09-02-2023 08:51-0400 Systolic blood pressure 125 mm[Hg] Stevie Fanny DO Work Phone: [facility] 09-02-2023 08:50-0400 Body mass index (BMI) [Ratio] 34.56 kg/m2 Chair 5 [facility] 09-02-2023 08:50-0400 Body weight 94.21 kg Chair 5 [facility] 08-12-2023 10:38-0500 Body temperature 98.29 [degF] Chair 1 [facility] 08-12-2023 10:38-0500 Diastolic blood pressure 87 mm[Hg] Chair 1 [facility] 08-12-2023 10:38-0500 Heart rate 73 /min Chair 1 [facility] 08-12-2023 10:38-0500 Respiratory rate 20 /min Chair 1 [facility] 08-12-2023 10:38-0500 SaO2% (BldA) [Mass fraction] 94 % Chair 1 [facility] 08-12-2023 10:38-0500 Systolic blood pressure 106 mm[Hg] Chair 1 [facility] 08-12-2023 08:09-0500 Body mass index (BMI) [Ratio] 34.21 kg/m2 Chair 1 [facility] 08-12-2023 08:09-0500 Body weight 93.26 kg Chair 1 [facility] 08-05-2023 11:11-0500 Body temperature 98.8 [degF] Chair 1 [facility] 08-05-2023 11:11-0500 Diastolic blood pressure 75 mm[Hg] Chair 1 [facility] 08-05-2023 11:11-0500 Heart rate 91 /min Chair 1 [facility] 08-05-2023 11:11-0500 SaO2% (BldA) [Mass fraction] 93 % Chair 1 [facility] 08-05-2023 11:11-0500 Systolic blood pressure 138 mm[Hg] Chair 1 [facility] 08-05-2023 09:00-0500 Body mass index (BMI) [Ratio] 33.73 kg/m2 Chair 1 [facility] 08-05-2023 09:00-0500 Body weight 91.94 kg Chair 1 [facility] 08-05-2023 09:00-0500 Respiratory rate 18 /min Chair 1 [facility] 07-30-2023 06:49-0500 Body height 165.1 cm Marie Dulle MD Work Phone: [facility] 07-30-2023 06:49-0500 Body mass index (BMI) [Ratio] 34.41 kg/m2 Marie Devi MD Work Phone: [facility] 07-30-2023 06:49-0500 Body temperature 97.5 [degF] Marie Devi MD Work Phone: [facility] 07-30-2023 06:49-0500 Body weight 93.8 kg Marie Devi MD Work Phone: [facility] 07-30-2023 06:49-0500 Diastolic blood pressure 72 mm[Hg] Marie Devi MD Work Phone: [facility] 07-30-2023 06:49-0500 Heart rate 86 /min Marie Devi MD Work Phone: [facility] 07-30-2023 06:49-0500 SaO2% (BldA) [Mass fraction] 94 % Marie Devi MD Work Phone: [facility] 07-30-2023 06:49-0500 Systolic blood pressure 108 mm[Hg] Marie Devi MD Work Phone: [facility] 07-15-2023 12:37-0500 Body temperature 97.3 [degF] Chair 5 [facility] [employer] 07-15-2023 12:37-0500 Diastolic blood pressure 81 mm[Hg] Chair 5 [facility] [employer] 07-15-2023 12:37-0500 Heart rate 77 /min Chair 5 [facility] [employer] 07-15-2023 12:37-0500 Respiratory rate 16 /min Chair 5 [facility] [employer] 07-15-2023 12:37-0500 SaO2% (BldA) [Mass fraction] 92 % Chair 5 [facility] [employer] 07-15-2023 12:37-0500 Systolic blood pressure 140 mm[Hg] Chair 5 [facility] [employer] 07-15-2023 10:27-0500 Body mass index (BMI) [Ratio] 33.95 kg/m2 Chair 5 [facility] [employer] 07-15-2023 10:27-0500 Body weight 92.53 kg Chair 5 [facility] [employer] 07-15-2023 10:09-0500 Body height 165.1 cm Stevie Fanny DO Work Phone: [facility] [employer] 07-15-2023 10:09-0500 Body mass index (BMI) [Ratio] 33.95 kg/m2 Stevie Fanny DO Work Phone: [facility] [employer] 07-15-2023 10:09-0500 Body temperature 97.59 [degF] Stevie Fanny DO Work Phone: [facility] [employer] 07-15-2023 10:09-0500 Body weight 92.53 kg Stevie Fanny DO Work Phone: [facility] [employer] 07-15-2023 10:09-0500 Diastolic blood pressure 78 mm[Hg] Stevie Fanny DO Work Phone: [facility] [employer] 07-15-2023 10:09-0500 Heart rate 95 /min Stevie Fanny DO Work Phone: [facility] [employer] 07-15-2023 10:09-0500 SaO2% (BldA) [Mass fraction] 93 % Stevie Fanny DO Work Phone: [facility] [employer] 07-15-2023 10:09-0500 Systolic blood pressure 135 mm[Hg] Stevie Fanny DO Work Phone: [facility] [employer] 07-03-2023 10:27-0500 Body height 165.1 cm Vicki Diego MD Work Phone: [employer] 07-03-2023 10:27-0500 Body mass index (BMI) [Ratio] 33.22 kg/m2 Vicki Diego MD Work Phone: [facility] [employer] 07-03-2023 10:27-0500 Body temperature 97.7 [degF] Vicki Diego MD Work Phone: [facility] [employer] 07-03-2023 10:27-0500 Body weight 90.54 kg Vicki Diego MD Work Phone: [facility] [employer] 07-03-2023 10:27-0500 Diastolic blood pressure 87 mm[Hg] Vicki Diego MD Work Phone: [facility] [employer] 07-03-2023 10:27-0500 Heart rate 84 /min Vicki Diego MD Work Phone: [facility] [employer] 07-03-2023 10:27-0500 Respiratory rate 20 /min Vicki Diego MD Work Phone: [facility] [employer] 07-03-2023 10:27-0500 SaO2% (BldA) [Mass fraction] 97 % Vicki Diego MD Work Phone: [facility] [employer] 07-03-2023 10:27-0500 Systolic blood pressure 135 mm[Hg] Vicki Diego MD Work Phone: [facility] [employer] 06-26-2023 14:47-0500 Body mass index (BMI) [Ratio] 33.3 kg/m2 Marie Devi MD Work Phone: [facility] 06-26-2023 14:47-0500 Body temperature 99 [degF] Marie Devi MD Work Phone: [facility] 06-26-2023 14:47-0500 Body weight 90.77 kg Marie Devi MD Work Phone: [facility] 06-26-2023 14:47-0500 Diastolic blood pressure 72 mm[Hg] Marie Devi MD Work Phone: [facility] 06-26-2023 14:47-0500 Heart rate 85 /min Marie Devi MD Work Phone: [facility] 06-26-2023 14:47-0500 Respiratory rate 16 /min Marie Devi MD Work Phone: [facility] 06-26-2023 14:47-0500 SaO2% (BldA) [Mass fraction] 92 % Marie Devi MD Work Phone: [facility] 06-26-2023 14:47-0500 Systolic blood pressure 111 mm[Hg] Marie Devi MD Work Phone: [facility] 06-24-2023 12:20-0500 Body temperature 96.4 [degF] Chair 1 [facility] [employer] 06-24-2023 12:20-0500 Diastolic blood pressure 75 mm[Hg] Chair 1 [facility] [employer] 06-24-2023 12:20-0500 Heart rate 79 /min Chair 1 [facility] [employer] 06-24-2023 12:20-0500 Respiratory rate 14 /min Chair 1 [facility] [employer] 06-24-2023 12:20-0500 SaO2% (BldA) [Mass fraction] 93 % Chair 1 [facility] [employer] 06-24-2023 12:20-0500 Systolic blood pressure 129 mm[Hg] Chair 1 [facility] [employer] 06-24-2023 08:03-0500 Body height 165.1 cm Stevie Fanny DO Work Phone: [facility] [employer] 06-24-2023 08:03-0500 Body mass index (BMI) [Ratio] 33.45 kg/m2 Stevie Fanny DO Work Phone: [facility] [employer] 06-24-2023 08:03-0500 Body temperature 98.49 [degF] Stevie Fanny DO Work Phone: [employer] 06-24-2023 08:03-0500 Body weight 91.17 kg Stevie Fanny DO Work Phone: [facility] [employer] 06-24-2023 08:03-0500 Diastolic blood pressure 76 mm[Hg] Stevie Fanny DO Work Phone: [employer] 06-24-2023 08:03-0500 Heart rate 93 /min Stevie Fanny DO Work Phone: [facility] [employer] 06-24-2023 08:03-0500 SaO2% (BldA) [Mass fraction] 93 % Stevie Fanny DO Work Phone: [employer] 06-24-2023 08:03-0500 Systolic blood pressure 121 mm[Hg] Stevie Fanny DO Work Phone: [facility] [employer] 06-24-2023 08:01-0500 Body mass index (BMI) [Ratio] 33.45 kg/m2 Chair 1 [facility] 06-24-2023 08:01-0500 Body weight 91.17 kg Chair 1 [facility] 06-13-2023 10:12-0500 Body temperature 97.9 [degF] Chair 3 [facility] 06-13-2023 10:12-0500 Diastolic blood pressure 78 mm[Hg] Chair 3 [facility] 06-13-2023 10:12-0500 Systolic blood pressure 110 mm[Hg] Chair 3 [facility] 06-13-2023 08:40-0500 Heart rate 93 /min Chair 3 [facility] 06-13-2023 08:40-0500 Respiratory rate 16 /min Chair 3 [facility] 06-13-2023 08:40-0500 SaO2% (BldA) [Mass fraction] 92 % Chair 3 [facility] 06-03-2023 14:43-0500 Body temperature 97 [degF] Chair 5 [facility] 06-03-2023 14:43-0500 Diastolic blood pressure 71 mm[Hg] Chair 5 [facility] 06-03-2023 14:43-0500 Heart rate 78 /min Chair 5 [facility] 06-03-2023 14:43-0500 Respiratory rate 18 /min Chair 5 [facility] 06-03-2023 14:43-0500 SaO2% (BldA) [Mass fraction] 93 % Chair 5 [facility] 06-03-2023 14:43-0500 Systolic blood pressure 113 mm[Hg] Chair 5 [facility] 06-03-2023 10:11-0500 Body height 165.1 cm Stevie Fanny DO Work Phone: [facility] 06-03-2023 10:11-0500 Body temperature 97.5 [degF] Stevie Fanny DO Work Phone: [facility] [employer] 06-03-2023 10:11-0500 Diastolic blood pressure 58 mm[Hg] Stevie Fanny DO Work Phone: [facility] [employer] 06-03-2023 10:11-0500 Heart rate 101 /min Stevie Escobedo DO Work Phone: [facility] 06-03-2023 10:11-0500 SaO2% (BldA) [Mass fraction] 95 % Stevie Escobedo DO Work Phone: [facility] [employer] 06-03-2023 10:11-0500 Systolic blood pressure 86 mm[Hg] Stevie Escobedo DO Work Phone: [facility] 05-27-2023 15:26-0500 Body temperature 99.7 [degF] Chair 3 [facility] 05-27-2023 15:26-0500 Diastolic blood pressure 56 mm[Hg] Chair 3 [facility] 05-27-2023 15:26-0500 Heart rate 86 /min Chair 3 [facility] 05-27-2023 15:26-0500 Respiratory rate 18 /min Chair 3 [facility] 05-27-2023 15:26-0500 SaO2% (BldA) [Mass fraction] 91 % Chair 3 [facility] 05-27-2023 15:26-0500 Systolic blood pressure 107 mm[Hg] Chair 3 [facility] 05-27-2023 10:39-0500 Body height 165.1 cm Chair 3 [facility] 05-27-2023 10:39-0500 Body mass index (BMI) [Ratio] 33.36 kg/m2 Chair [facility] 05-27-2023 10:39-0500 Body weight 90.95 kg Chair 3 [facility] 05-23-2023 10:59-0500 Diastolic blood pressure 70 mm[Hg] Chair 4 [facility] 05-23-2023 10:59-0500 Heart rate 87 /min Chair 4 [facility] 05-23-2023 10:59-0500 SaO2% (BldA) [Mass fraction] 91 % Chair 4 [facility] 05-23-2023 10:59-0500 Systolic blood pressure 125 mm[Hg] Chair 4 [facility] 05-23-2023 08:45-0500 Body mass index (BMI) [Ratio] 33.9 kg/m2 Chair 4 [facility] 05-23-2023 08:45-0500 Body temperature 97.7 [degF] Chair 4 [facility] 05-23-2023 08:45-0500 Body weight 92.4 kg Chair 4 [facility] 05-23-2023 08:45-0500 Respiratory rate 20 /min Chair 4 [facility] 05-20-2023 13:16-0500 Body temperature 98.1 [degF] Bed 1 [facility] 05-20-2023 13:16-0500 Diastolic blood pressure 70 mm[Hg] Bed 1 [facility] 05-20-2023 13:16-0500 Heart rate 75 /min Bed 1 [facility] 05-20-2023 13:16-0500 SaO2% (BldA) [Mass fraction] 94 % Bed 1 [facility] 05-20-2023 13:16-0500 Systolic blood pressure 134 mm[Hg] Bed 1 [facility] 05-20-2023 08:48-0500 Body height 165.1 cm Stevie Fanny DO Work Phone: [facility] 05-20-2023 08:48-0500 Body mass index (BMI) [Ratio] 33.41 kg/m2 Stevie Fanny DO Work Phone: [facility] 05-20-2023 08:48-0500 Body temperature 98.01 [degF] Stevie Fanny DO Work Phone: [facility] [employer] 05-20-2023 08:48-0500 Body weight 91.08 kg Stevie Fanny DO Work Phone: [facility] 05-20-2023 08:48-0500 Diastolic blood pressure 68 mm[Hg] Stevie Fanny DO Work Phone: [facility] [employer] 05-20-2023 08:48-0500 Heart rate 85 /min Stevie Fanny DO Work Phone: [facility] 05-20-2023 08:48-0500 SaO2% (BldA) [Mass fraction] 95 % Stevie Fanny DO Work Phone: [facility] 05-20-2023 08:48-0500 Systolic blood pressure 106 mm[Hg] [employer] Phone: [facility] 05-20-2023 08:43-0500 Body mass index (BMI) [Ratio] 33.36 kg/m2 Bed 1 [facility] 05-20-2023 08:43-0500 Body weight 90.95 kg Bed 1 [facility] 05-20-2023 08:43-0500 Respiratory rate 16 /min Bed 1 [facility] 05-13-2023 12:58-0500 Body temperature 98.71 [degF] Chair 5 [facility] 05-13-2023 12:58-0500 Diastolic blood pressure 71 mm[Hg] Chair 5 [facility] 05-13-2023 12:58-0500 Heart rate 78 /min Chair 5 [facility] 05-13-2023 12:58-0500 Respiratory rate 16 /min Chair 5 [facility] 05-13-2023 12:58-0500 SaO2% (BldA) [Mass fraction] 94 % Chair 5 [facility] 05-13-2023 12:58-0500 Systolic blood pressure 120 mm[Hg] Chair 5 [facility] 05-13-2023 08:40-0500 Body mass index (BMI) [Ratio] 33.78 kg/m2 Chair 5 [facility] 05-13-2023 08:40-0500 Body weight 92.08 kg Chair 5 [facility] 05-06-2023 13:06-0500 Body temperature 98.2 [degF] Chair 5 [facility] 05-06-2023 13:06-0500 Diastolic blood pressure 74 mm[Hg] Chair 5 [facility] 05-06-2023 13:06-0500 Heart rate 70 /min Chair 5 [facility] 05-06-2023 13:06-0500 Respiratory rate 12 /min Chair 5 [facility] 05-06-2023 13:06-0500 SaO2% (BldA) [Mass fraction] 92 % Chair 5 [facility] 05-06-2023 13:06-0500 Systolic blood pressure 136 mm[Hg] Chair 5 [facility] 05-06-2023 08:44-0500 Body height 165.1 cm Stevie Fanny DO Work Phone: [facility] [employer] 05-06-2023 08:44-0500 Body mass index (BMI) [Ratio] 34.25 kg/m2 Stevie Fanny DO Work Phone: [facility] [employer] 05-06-2023 08:44-0500 Body temperature 97 [degF] Stevie Fanny DO Work Phone: [facility] [employer] 05-06-2023 08:44-0500 Body weight 93.35 kg Stevie Fanny DO Work Phone: [facility] [employer] 05-06-2023 08:44-0500 Diastolic blood pressure 71 mm[Hg] Stevie Fanny DO Work Phone: [facility] [employer] 05-06-2023 08:44-0500 Heart rate 77 /min Stevie Schulteebel DO Work Phone: [facility] [employer] 05-06-2023 08:44-0500 SaO2% (BldA) [Mass fraction] 96 % Stevie Schulteebel DO Work Phone: [facility] [employer] 05-06-2023 08:44-0500 Systolic blood pressure 113 mm[Hg] Stevie Fanny DO Work Phone: [facility] 05-06-2023 08:43-0500 Body mass index (BMI) [Ratio] 34.25 kg/m2 Chair 5 [facility] 05-06-2023 08:43-0500 Body weight 93.35 kg Chair 5 [facility] 04-29-2023 13:56-0500 Body temperature 97.5 [degF] Chair 4 [facility] 04-29-2023 13:56-0500 Diastolic blood pressure 84 mm[Hg] Chair 4 [facility] 04-29-2023 13:56-0500 Heart rate 84 /min Chair 4 [facility] 04-29-2023 13:56-0500 Respiratory rate 20 /min Chair 4 [facility] 04-29-2023 13:56-0500 SaO2% (BldA) [Mass fraction] 94 % Chair 4 [facility] 04-29-2023 13:56-0500 Systolic blood pressure 132 mm[Hg] Chair 4 [facility] 04-29-2023 10:04-0500 Body mass index (BMI) [Ratio] 33.9 kg/m2 Chair 4 [facility] 04-29-2023 10:04-0500 Body weight 92.4 kg Chair 4 [facility] 04-22-2023 12:25-0400 Body temperature 97.3 [degF] Chair 6 [facility] 04-22-2023 12:25-0400 Diastolic blood pressure 76 mm[Hg] Chair 6 [facility] 04-22-2023 12:25-0400 Heart rate 75 /min Chair 6 [facility] 04-22-2023 12:25-0400 Respiratory rate 14 /min Chair 6 [facility] 04-22-2023 12:25-0400 SaO2% (BldA) [Mass fraction] 98 % Chair 6 [facility] 04-22-2023 12:25-0400 Systolic blood pressure 130 mm[Hg] Chair 6 [facility] [employer] 04-22-2023 08:12-0400 Body height 165.1 cm Stevie Fanny DO Work Phone: [facility] [employer] 04-22-2023 08:12-0400 Body mass index (BMI) [Ratio] 34.18 kg/m2 Stevie Fanny DO Work Phone: [facility] [employer] 04-22-2023 08:12-0400 Body temperature 98.01 [degF] Stevie Fanny DO Work Phone: [facility] [employer] 04-22-2023 08:12-0400 Body weight 93.17 kg Stevie Fanny DO Work Phone: [facility] [employer] 04-22-2023 08:12-0400 Diastolic blood pressure 83 mm[Hg] Stevie Fanny DO Work Phone: [facility] [employer] 04-22-2023 08:12-0400 Heart rate 79 /min Stevie Fanny DO Work Phone: [facility] [employer] 04-22-2023 08:12-0400 SaO2% (BldA) [Mass fraction] 93 % Stevie Fanny DO Work Phone: [facility] [employer] 04-22-2023 08:12-0400 Systolic blood pressure 139 mm[Hg] Stevie Fanny DO Work Phone: [facility] [employer] 04-08-2023 13:50-0400 Body temperature 97.5 [degF] Chair 6 [facility] [employer] 04-08-2023 13:50-0400 Diastolic blood pressure 71 mm[Hg] Chair 6 [facility] [employer] 04-08-2023 13:50-0400 Heart rate 72 /min Chair 6 [facility] [employer] 04-08-2023 13:50-0400 Respiratory rate 18 /min Chair 6 [facility] [employer] 04-08-2023 13:50-0400 Systolic blood pressure 128 mm[Hg] Chair 6 [facility] [employer] 04-08-2023 09:59-0400 Body height 165.1 cm Stevie Fanny DO Work Phone: [facility] [employer] 04-08-2023 09:59-0400 Body mass index (BMI) [Ratio] 33.86 kg/m2 Stevie Fanny DO Work Phone: [facility] [employer] 04-08-2023 09:59-0400 Body temperature 98.4 [degF] Stevie Fanny DO Work Phone: [facility] [employer] 04-08-2023 09:59-0400 Body weight 92.31 kg Stevie Fanny DO Work Phone: [facility] [employer] 04-08-2023 09:59-0400 Diastolic blood pressure 64 mm[Hg] Stevie Fanny DO Work Phone: [facility] [employer] 04-08-2023 09:59-0400 Heart rate 74 /min Stevie Fanny DO Work Phone: [facility] [employer] 04-08-2023 09:59-0400 SaO2% (BldA) [Mass fraction] 98 % Stevie Fanny DO Work Phone: [facility] [employer] 10-17-2023 09:59-0400 Systolic blood pressure 127 mm[Hg] Stevie Fanny DO Work Phone: [facility] 04-08-2023 09:56-0400 Body mass index (BMI) [Ratio] 33.86 kg/m2 Chair 6 [facility] 04-08-2023 09:56-0400 Body weight 92.31 kg Chair 6 [facility] 04-08-2023 09:56-0400 SaO2% (BldA) [Mass fraction] 98 % Chair 6 [facility] 04-01-2023 13:44-0400 Body temperature 98.01 [degF] Chair 3 [facility] 04-01-2023 13:44-0400 Diastolic blood pressure 81 mm[Hg] Chair 3 [facility] 04-01-2023 13:44-0400 Heart rate 70 /min Chair 3 [facility] 04-01-2023 13:44-0400 Respiratory rate 16 /min Chair 3 [facility] 04-01-2023 13:44-0400 SaO2% (BldA) [Mass fraction] 91 % Chair 3 [facility] 04-01-2023 13:44-0400 Systolic blood pressure 130 mm[Hg] Chair 3 [facility] 04-01-2023 08:02-0400 Body mass index (BMI) [Ratio] 34.11 kg/m2 Chair 3 [facility] 04-01-2023 08:02-0400 Body weight 92.99 kg Chair 3 [facility] 03-26-2023 14:30-0400 Body height 165.1 cm Stevie Fanny DO Work Phone: [facility] [employer] 03-26-2023 14:30-0400 Body mass index (BMI) [Ratio] 33.78 kg/m2 Stevie Fanny DO Work Phone: [facility] [employer] 03-26-2023 14:30-0400 Body weight 92.08 kg Stevie Fanny DO Work Phone: [facility] [employer] 03-18-2023 13:35-0400 Body height 165.1 cm Stevie Fanny DO Work Phone: [facility] [employer] 03-18-2023 13:35-0400 Body mass index (BMI) [Ratio] 33.86 kg/m2 Stevie Fanny DO Work Phone: [facility] [employer] 03-18-2023 13:35-0400 Body temperature 98.1 [degF] Stevie Fanny DO Work Phone: [facility] [employer] 03-18-2023 13:35-0400 Body weight 92.31 kg Stevie Fanny DO Work Phone: [facility] [employer] 03-18-2023 13:35-0400 Diastolic blood pressure 83 mm[Hg] Stevie Fanny DO Work Phone: [facility] [employer] 03-18-2023 13:35-0400 Heart rate 77 /min Stevie Fanny DO Work Phone: [facility] [employer] 03-18-2023 13:35-0400 SaO2% (BldA) [Mass fraction] 97 % Stevie Fanny DO Work Phone: [facility] [employer] 03-18-2023 13:35-0400 Systolic blood pressure 140 mm[Hg] Stevie Fanny DO Work Phone: [facility] [employer] 03-06-2023 13:21-0400 Body height 165.1 cm Vicki Diego MD Work Phone: [facility] [employer] 03-06-2023 13:21-0400 Body mass index (BMI) [Ratio] 33.66 kg/m2 Vicki Diego MD Work Phone: [facility] [employer] 03-06-2023 13:21-0400 Body temperature 97.11 [degF] Vicki Diego MD Work Phone: [facility] [employer] 03-06-2023 13:21-0400 Body weight 91.76 kg Vicki Diego MD Work Phone: [facility] [employer] 03-06-2023 13:21-0400 Diastolic blood pressure 90 mm[Hg] Vicki Diego MD Work Phone: [facility] 03-06-2023 13:21-0400 Heart rate 77 /min Vicki Diego MD Work Phone: [facility] 03-06-2023 13:21-0400 Respiratory rate 20 /min Vicki Diego MD Work Phone: [facility] 03-06-2023 13:21-0400 SaO2% (BldA) [Mass fraction] 97 % Vicki Diego MD Work Phone: [facility] 03-06-2023 13:21-0400 Systolic blood pressure 140 mm[Hg] Vicki Diego MD Work Phone: [facility] 02-12-2023 15:27-0400 Body mass index (BMI) [Ratio] 34.11 kg/m2 Marie Devi MD Work Phone: [facility] 02-12-2023 15:27-0400 Body temperature 97.39 [degF] Marie Devi MD Work Phone: [facility] 02-12-2023 15:27-0400 Body weight 92.99 kg Marie Devi MD Work Phone: [facility] 02-12-2023 15:27-0400 Diastolic blood pressure 75 mm[Hg] Marie Devi MD Work Phone: [facility] 02-12-2023 15:27-0400 Heart rate 71 /min Marie Devi MD Work Phone: [facility] 02-12-2023 15:27-0400 Respiratory rate 16 /min Marie Devi MD Work Phone: [facility] 02-12-2023 15:27-0400 Systolic blood pressure 122 mm[Hg] Marie Devi MD Work Phone: [facility] 02-05-2023 07:51-0400 Body height 166.4 cm Pacc 2 Work Phone: [facility] 02-05-2023 07:51-0400 Body temperature 97.11 [degF] Pacc 2 Work Phone: [facility] 02-05-2023 07:51-0400 Body weight 93.44 kg Pacc 2 Work Phone: [facility] 02-05-2023 07:51-0400 Diastolic blood pressure 69 mm[Hg] Pacc 2 Work Phone: [facility] 02-05-2023 07:51-0400 Heart rate 76 /min Pacc 2 Work Phone: [facility] 02-05-2023 07:51-0400 Respiratory rate 16 /min Pacc 2 Work Phone: [facility] 02-05-2023 07:51-0400 SaO2% (BldA) [Mass fraction] 97 % Pacc 2 Work Phone: [facility] 02-05-2023 07:51-0400 Systolic blood pressure 126 mm[Hg] Pacc 2 Work Phone: [facility] 02-03-2023 14:21-0400 Body height 165.1 cm Torrie Choi MD Work Phone: [facility] 02-03-2023 14:21-0400 Body weight 92.08 kg Torrie Choi MD Work Phone: [facility] 02-03-2023 14:21-0400 Diastolic blood pressure 83 mm[Hg] Torrie Choi MD Work Phone: [facility] 02-03-2023 14:21-0400 Heart rate 74 /min Torrie Choi MD Work Phone: [facility] 02-03-2023 14:21-0400 Systolic blood pressure 128 mm[Hg] Torrie Choi MD Work Phone: [facility] 01-23-2023 06:35-0400 Body mass index (BMI) [Ratio] 34.38 kg/m2 Marie Devi MD Work Phone: [facility] 01-23-2023 06:35-0400 Body temperature 96.91 [degF] Marie Devi MD Work Phone: [facility] 01-23-2023 06:35-0400 Body weight 93.71 kg Marie Devi MD Work Phone: [facility] 01-23-2023 06:35-0400 Diastolic blood pressure 73 mm[Hg] Marie Devi MD Work Phone: [facility] 01-23-2023 06:35-0400 Heart rate 68 /min Marie Devi MD Work Phone: [facility] 01-23-2023 06:35-0400 Respiratory rate 16 /min Marie Devi MD Work Phone: [facility] 01-23-2023 06:35-0400 SaO2% (BldA) [Mass fraction] 97 % Marie Devi MD Work Phone: [facility] 01-23-2023 06:35-0400 Systolic blood pressure 115 mm[Hg] Marie Devi MD Work Phone: [facility] 10-30-2022 10:06-0400 Body mass index (BMI) [Ratio] 32.78 kg/m2 Dara Mesko DO Work Phone: [facility] 10-30-2022 10:06-0400 Body temperature 97.9 [degF] Dara Mesko DO Work Phone: [facility] 10-30-2022 10:06-0400 Body weight 89.36 kg Dara Mesko DO Work Phone: [facility] 10-30-2022 10:06-0400 Diastolic blood pressure 66 mm[Hg] Dara Mesko DO Work Phone: [facility] 10-30-2022 10:06-0400 Heart rate 73 /min Dara Mesko DO Work Phone: [facility] 10-30-2022 10:06-0400 Respiratory rate 14 /min Dara Mesko DO Work Phone: [facility] 10-30-2022 10:06-0400 SaO2% (BldA) [Mass fraction] 97 % Dara Mesko DO Work Phone: [facility] 10-30-2022 10:06-0400 Systolic blood pressure 100 mm[Hg] Dara Mesko DO Work Phone: [facility] 10-24-2022 14:36-0400 Body mass index (BMI) [Ratio] 32.92 kg/m2 Dara Mesko DO Work Phone: [facility] 10-24-2022 14:36-0400 Body temperature 98.01 [degF] Dara Mesko DO Work Phone: [facility] 10-24-2022 14:36-0400 Body weight 89.72 kg Dara Mesko DO Work Phone: [facility] 10-24-2022 14:36-0400 Diastolic blood pressure 72 mm[Hg] Dara Mesko DO Work Phone: [facility] 10-24-2022 14:36-0400 Heart rate 85 /min Dara Mesko DO Work Phone: [facility] 10-24-2022 14:36-0400 Respiratory rate 16 /min Dara Mesko DO Work Phone: [facility] 10-24-2022 14:36-0400 SaO2% (BldA) [Mass fraction] 98 % Dara Mesko DO Work Phone: [facility] 10-24-2022 14:36-0400 Systolic blood pressure 126 mm[Hg] Dara Mesko DO Work Phone: [facility] 07-17-2022 06:57-0500 Body height 165.1 cm Marie Devi Work Phone: [facility] Work Phone: 07-17-2022 06:57-0500 Body mass index (BMI) [Ratio] 32.53 kg/m2 Marie Devi Work Phone: [facility] Work Phone: 07-17-2022 06:57-0500 Body surface area Derived from formula 1.96 m2 Marie Devi Work Phone: [facility] Work Phone: 07-17-2022 06:57-0500 Body temperature 97.8 [degF] Marie Devi Work Phone: [facility] Work Phone: 07-17-2022 06:57-0500 Body weight 88.68 kg Marie Devi Work Phone: [facility] Work Phone: 07-17-2022 06:57-0500 Diastolic blood pressure 68 mm[Hg] Marie Devi Work Phone: [facility] Work Phone: 07-17-2022 06:57-0500 Heart rate 67 /min Marie Devi Work Phone: [facility] Work Phone: 07-17-2022 06:57-0500 Respiratory rate 12 /min Marie Devi Work Phone: [facility] Work Phone: 07-17-2022 06:57-0500 SaO2% (BldA) [Mass fraction] 95 % Marie Devi Work Phone: [facility] Work Phone: 07-17-2022 06:57-0500 Systolic blood pressure 104 mm[Hg] Marie Douglasle Work Phone: [facility] Work Phone: 01-10-2022 06:33-0400 Body mass index (BMI) [Ratio] 33.28 kg/m2 Marie Devi Work Phone: [facility] Work Phone: 01-10-2022 06:33-0400 Body surface area Derived from formula 1.98 m2 Marie Devi Work Phone: [facility] Work Phone: 01-10-2022 06:33-0400 Body temperature 98.1 [degF] Marie Devi Work Phone: [facility] Work Phone: 01-10-2022 06:33-0400 Body weight 90.72 kg Marie Devi Work Phone: [facility] Work Phone: 01-10-2022 06:33-0400 Diastolic blood pressure 69 mm[Hg] Marie Douglasle Work Phone: [facility] [...] 06:33-0400 Systolic blood pressure 103 mm[Hg] Marie Stanley Dulle Work Phone: [facility] [...] weight 88.91 kg Marie Devi Work Phone: [facility] Work Phone: 07-12-2021 06:47-0500 Diastolic blood pressure 69 mm[Hg] Marie Devi Work Phone: [facility] Work Phone: 07-12-2021 06:47-0500 Heart rate 71 /min Marie Devi Work Phone: [facility] Work Phone: 07-12-2021 06:47-0500 Respiratory rate 12 /min Marie Devi Work Phone: [facility] Work Phone: 07-12-2021 06:47-0500 SaO2% (BldA) [Mass fraction] 95 % Marie Devi Work Phone: [facility] Work Phone: 07-12-2021 06:47-0500 Systolic blood pressure 108 mm[Hg] Marie Douglasle Work Phone: [facility] Work Phone: 01-10-2021 06:45-0400 Body mass index (BMI) [Ratio] 32.95 kg/m2 Marie Devi Work Phone: [facility] Work Phone: 01-10-2021 06:45-0400 Body surface area Derived from formula 1.95 m2 Marie Devi Work Phone: [facility] Work Phone: 01-10-2021 06:45-0400 Body temperature 96.2 [degF] Marie Devi Work Phone: [facility] Work Phone: 01-10-2021 06:45-0400 Body weight 88.45 kg Marie Devi Work Phone: [facility] Work Phone: 01-10-2021 06:45-0400 Diastolic blood pressure 71 mm[Hg] Marie Devi Work Phone: [facility] Work Phone: 01-10-2021 06:45-0400 Heart rate 73 /min Marie Devi Work Phone: [facility] Work Phone: 01-10-2021 06:45-0400 Respiratory rate 12 /min Marie Devi Work Phone: [facility] Work Phone: 01-10-2021 06:45-0400 SaO2% (BldA) [Mass fraction] 96 % Marie Devi Work Phone: [facility] Work Phone: 01-10-2021 06:45-0400 Systolic blood pressure 105 mm[Hg] Marie Stanley Dulle Work Phone: [facility] Work Phone: 01-06-2020 08:40-0400 Body Temperature 97.7 [degF] Marie Devi [facility] Work Phone: Comment on above: Method: Temporal 01-06-2020 08:40-0400 BP Diastolic 71 mm[Hg] Marie Devi [facility] Work Phone: Comment on above: Location: RUE; Position: Sitting 01-06-2020 08:40-0400 BP Systolic 110 mm[Hg] [facility]adina [facility] Work Phone: Comment on above: Location: RUE; Position: Sitting 01-06-2020 08:40-0400 Pulse (Heart Rate) 72 /min Marie Stelladina [facility] Work Phone: 01-06-2020 08:40-0400 Pulse Oximetry 95 % Marie Stelladina [facility] Work Phone: 01-06-2020 08:40-0400 Respiratory Rate 12 /min Marie Devi [facility] Work Phone: 01-06-2020 08:37-0400 BMI (Body Mass Index) 30.42 kg/m2 Marie Devi [facility] Work Phone: 01-06-2020 08:37-0400 Body weight 81.65 kg Marie Devi [facility] Work Phone: 01-06-2020 08:37-0400 BSA (Body Surface Area) 1.88 m2 Marie Devi [facility] Work Phone: Encounters Encounter Date Encounter Type Care Provider Facility Start: 01-18-2025 ambulatory MARIE DEVI Facility: [facility] Start: 01-18-2025 End: 01-18-2025 Subsequent hospital visit by physician [facility] Comment on above: Abnormal MRI of head [R93.0] Start: 01-13-2025 End: 01-13-2025 Orders Only Sara Ramey APRN.MACHINE TECH Work Phone: Cerebrovascular Comment on above: Abnormal EEG (Primar y Dx); Transient confusion Start: 01-12-2025 End: 01-12-2025 Telephone encounter Sara Ramey APRN.MACHINE TECH Work Phone: Cerebrovascular Start: 01-11-2025 ambulatory Shant Kern y:[facility] Start: 01-07-2025 End: 01-07-2025 Telephone encounter Sara Ramey APRN.MACHINE TECH Work Phone: [facility] Comment on above: Patient Update Start: 01-03-2025 End: 01-03-2025 Patient encounter procedure Sara Ramey OPTICAL ENGINEERING TECHNICIAN.MACHINE TECH Work Phone: Cerebrovascular Comment on above: Transient confusion (Primary Dx); Abnormal MRI of head; History of cerebral hemorrhage; Silent micro-hemorrhage of brain (HCC); Abnormal EEG; Cervicogenic headache Start: 01-03-2025 End: 01-03-2025 ambulatory RACHEAL PAO Facility:[facility] Start: 12-14-2024 [facility]ulatory [facility] Start: 12-13-2024 ambulatory Azam Santo ty:[facility] Start: 12-03-2024 End: 12-10-2024 Evaluation and management of inpatient SHAW KINSEY Facility:[facility] Start: 09-17-2024 End: 09-17-2024 Patient encounter procedure Leonardo R Stanec DO Work Phone: [facility] Comment on above: Medicare annual well ness visit, subsequent (Primary Dx); Depression with anxiety; Elevated TSH; Parkinson's disease without dyskinesia or fluctuating manifestations; Vitamin D deficiency; Do not resuscitate Start: 09-17-2024 End: 09-17-2024 ambulatory LEONARDO R [facility] Start: 08-10-2024 End: 08-10-2024 Office outpatient visit 15 minutes Stevie Escobedo DO Work Phone: [facility] Comment on above: Malignant neoplasm o f upper-outer quadrant of left breast in female, estrogen receptor positive (HCC) (Primary Dx) Start: 08-10-2024 End: 08-10-2024 ambulatory LEONARDO STANEC [facility] Start: 07-31-2024 End: 08-03-2024 Refill Stevie Sam Escobedo DO Work Phone: [facility] Comment on above: Malignant neoplasm o f upper-outer quadrant of left breast in female, estrogen receptor positive (HCC) Start: 03-25-2024 ambulatory NORA SHANDRA Facility: [facility] Start: 03-25-2024 End: 03-25-2024 Subsequent hospital visit by physician Screen/Diagnostic Mammo 1 [facility] Work Phone: Mammography Comment on above: Visit for screening mammogram [Z12.31] Start: 03-16-2024 End: 03-16-2024 Office outpatient visit 15 minutes Stevie Escobedo DO Work Phone: [facility] Comment on above: Malignant neoplasm o f upper-outer quadrant of left breast in female, estrogen receptor positive (HCC) (Primary Dx) Start: 03-16-2024 End: 03-16-2024 ambulatory [facility] Start: 02-19-2024 End: 02-19-2024 ambulatory MARIE DEVI Facility:[facility] Start: 02-19-2024 End: 02-19-2024 Patient encounter procedure Torrie Choi MD Work Phone: General Surgery Comment on above: Malignant neoplasm o f upper-outer quadrant of left breast in female, estrogen receptor positive (HCC) (Primary Dx) Start: 02-18-2024 End: 02-18-2024 Office outpatient visit 25 minutes Marie Devi MD Work Phone: [facility] Comment on above: Parkinsonism, unspec ified Parkinsonism type (Multi) (Primary Dx); Malignant neoplasm of right female breast, unspecified estrogen receptor status, unspecified site of breast (Multi); Depression with anxiety; Elevated TSH; Obesity (BMI 30.0-34.9); Other specified depressive episodes Start: 02-18-2024 End: 02-18-2024 ambulatory [facility] Ambulatory Start: 02-03-2024 End: 02-03-2024 Refill Stevie E Fanny DO Work Phone: [facility] Comment on above: Malignant neoplasm o f upper-outer quadrant of left breast in female, estrogen receptor positive (HCC) Patient Question Start: 02-03-2024 End: 02-03-2024 Office outpatient visit 25 minutes Stevie E Fanny DO Work Phone: [facility] Comment on above: Malignant neoplasm o f upper-outer quadrant of left breast in female, estrogen receptor positive (HCC) (Primary Dx) Start: 11-11-2023 End: 11-11-2023 Office outpatient visit 25 minutes Marie Devi MD Work Phone: [facility] Comment on above: 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) (Primary Dx); Parkinsonism, unspecified Parkinsonism type (Multi); Depression with anxiety; Pneumonia due to COVID-19 virus; Malignant neoplasm of right female breast, unspecified estrogen receptor status, unspecified site of breast (Multi) Start: 11-04-2023 End: 11-04-2023 Office outpatient visit 25 minutes Stevie E Fanny DO Work Phone: [facility] Comment on above: Malignant neoplasm o f upper-outer quadrant of left breast in female, estrogen receptor positive (HCC) (Primary Dx) Start: 11-04-2023 End: 11-04-2023 ambulatory Stevie E Fanny DO Work Phone: [facility] IN[facility] Comment on above: Arrived Start: 10-30-2023 Orders Only Stevie E Goebe l DO Work Phone: [facility] Comment on above: Malignant neoplasm o f upper-outer quadrant of left breast in female, estrogen receptor positive (HCC) (Primary Dx) Start: 10-29-2023 End: 11-27-2023 ambulatory MARIE DEVI [facility] Start: 10-14-2023 End: 10-28-2023 Subsequent hospital visit by physician Darrick Santos DO Work Phone: [facility] Start: 10-06-2023 Telephone encounter Lisa Watters RD Oncology Supportive Care Comment on above: Nutrition Counseling Start: 09-30-2023 Orders Only Stevie E Goebe l DO Work Phone: [facility] Comment on above: Malignant neoplasm o f upper-outer quadrant of left breast in female, estrogen receptor positive (HCC) (Primary Dx) Start: 09-23-2023 End: 09-23-2023 ambulatory Stevie E Fanny DO Work Phone: [facility] Comment on above: Malignant neoplasm o f upper-outer quadrant of left breast in female, estrogen receptor positive (HCC) Start: 09-18-2023 End: 09-18-2023 Subsequent hospital visit by physician Stevie Escobedo DO Work Phone: [facility] Non-Invasive Cardiology Comment on above: Admission for therap eutic drug monitoring; Encounter for monitoring cardiotoxic drug therapy Start: 09-18-2023 End: 09-18-2023 ambulatory [facility] Start: 09-12-2023 End: 09-12-2023 Subsequent hospital visit by physician Vicki Diego MD Work Phone: [facility] RAD [facility] Comment on above: Malignant neoplasm o f upper-outer quadrant of left breast in female, estrogen receptor positive (HCC) (HCC) (Primary Dx) Start: 09-12-2023 End: 09-12-2023 Critical access hospital Start: 09-05-2023 End: 09-05-2023 Orders Only Stevie E Fanny DO Work Phone: [facility] Comment on above: Malignant neoplasm o f upper-outer quadrant of left breast in female, estrogen receptor positive (HCC) (HCC) (Primary Dx) Malignant neoplasm o f upper-outer quadrant of left breast in female, estrogen receptor positive (HCC) (HCC); Asymptomatic menopausal state; Encounter for monitoring anastrozole therapy Start: 09-02-2023 End: 09-02-2023 Office outpatient visit 25 minutes Stevie E Fanny DO Work Phone: [facility] Comment on above: Malignant neoplasm o [...] ONC Start: 08-05-2023 End: 08-05-2023 ambulatory Stevie E Fanny DO Work Phone: [...] Start: 07-31-2023 End: 07-31-2023 ambulatory MARIE DEVI [facility] Start: 07-31-2023 End: 07-31-2023 Subsequent hospital visit by physician Jenny Serrato Ultrasound [facility] Comment on above: Thyroid nodule Nontoxic single thyr oid nodule Start: 07-30-2023 End: 07-30-2023 Subsequent hospital visit by physician Vicki Diego MD Work Phone: [facility] Start: 07-30-2023 End: 07-31-2023 ambulatory MARIE Stanley [facility] Start: 07-30-2023 End: 07-30-2023 Patient encounter procedure Marie Devi MD Work Phone: [facility] Comment on above: [...] by physician Vicki Diego MD Work Phone: [facility] Start: 07-06-2023 End: 07-06-2023 Subsequent hospital visit by physician Vicki Diego MD Work Phone: [facility] Comment on above: Arrived Start: 07-03-2023 End: 07-03-2023 Subsequent hospital visit by physician Vicki Diego MD Work Phone: [facility] RAD ONC Comment on above: Malignant neoplasm o f upper-outer quadrant of left female breast, unspecified estrogen receptor status (HCC) Start: 07-03-2023 End: 07-03-2023 Office outpatient visit 25 minutes Vicki Diego MD Work Phone: [facility] RAD ONC Comment on above: Malignant neoplasm o f upper-outer quadrant of left breast in female, estrogen receptor positive (HCC) (Primary Dx) Start: 07-03-2023 End: 07-03-2023 Subsequent hospital visit by physician Billing Only Appointments Radiation Oncology [facility] Comment on above: Arrived Start: 07-01-2023 Orders Only Stevie alvarado DO Work Phone: [facility] Comment on above: Malignant neoplasm o f upper-outer quadrant of left breast in female, estrogen receptor positive (HCC) (Primary Dx) Start: 06-26-2023 End: 06-26-2023 Office outpatient visit 40 minutes Marie Devi MD Work Phone: [facility] Comment on above: Parkinsonism, unspec ified Parkinsonism type (Primary Dx); Toxic effect of chemotherapy; Dehydration; Malignant neoplasm of right female breast, unspecified estrogen receptor status, unspecified site of breast (CMS/HCC) Start: 06-26-2023 End: 06-26-2023 Subsequent hospital visit by physician Stevie Escobedo DO Work Phone: [facility] Non-Invasive Cardiology Comment on above: Encounter for monito ring cardiotoxic drug therapy Start: 06-24-2023 End: 06-24-2023 Office outpatient visit 25 minutes Stevie Escobedo DO Work Phone: [facility] Comment on above: Malignant neoplasm o f upper-outer quadrant of left breast in female, estrogen receptor positive (HCC) (Primary Dx) Start: 06-24-2023 End: 06-24-2023 ambulatory Stevie Sam Fanny DO Work Phone: [facility] Comment on above: Malignant neoplasm o f upper-outer quadrant of left breast in female, 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, estrogen receptor positive (HCC) (HCC) Start: 06-13-2023 End: 04-12-2024 Telephone encounter Tisha Fernandez RN Work Phone: [facility] Comment on above: Erroneous encounter- disregard Home Care (Start of care confirmation call) Start: 06-13-2023 End: 06-13-2023 ambulatory Stevie Escobedo DO Work Phone: [facility] Comment on above: Malignant neoplasm o f upper-outer quadrant of left breast in female, estrogen receptor positive (HCC) Start: 06-12-2023 Telephone encounter Darlene Shirley [facility] Supportive [facility] Start: 06-11-2023 Telephone encounter Lisa Watters RD Oncology Supportive Care Comment on above: Nutrition Counseling Start: 06-10-2023 Orders Only Stevie alvarado DO Work Phone: [facility] Comment on above: Malignant neoplasm o f upper-outer quadrant of left breast in female, estrogen receptor positive (HCC) (Primary Dx) Start: 06-09-2023 Telephone encounter Stevie weaver DO Work Phone: [facility] Comment on above: Lab Orders Start: 06-04-2023 Telephone encounter Darlene Shirley Oncology Supportive Care Start: 06-03-2023 End: 06-03-2023 Subsequent hospital visit by physician Stevie Escobedo DO Work Phone: [facility] Imaging Comment on above: Malignant neoplasm o f upper-outer quadrant of left breast in female, estrogen receptor positive (HCC) ; Localized edema Start: 06-03-2023 Telephone encounter Steviezoe jacobsbel DO Work Phone: [facility] Comment on above: Orders Start: 06-03-2023 End: 06-03-2023 Office outpatient visit 25 minutes Stevie E Fanny DO Work Phone: [facility] Comment on above: Malignant neoplasm [...] Only Stevie E Fanny DO Work Phone: [facility] Comment on above: Malignant neoplasm o f upper-outer quadrant of left breast in female, estrogen receptor positive (HCC) (Primary Dx) Malignant neoplasm o f upper-outer quadrant of left breast in female, estrogen receptor positive (HCC) Start: 05-20-2023 End: 05-20-2023 Orders Only Stevie E Fanny DO Work Phone: [facility] Comment on above: Malignant neoplasm o f upper-outer quadrant of left breast in female, estrogen receptor positive (HCC) (Primary Dx) Malignant neoplasm o f upper-outer quadrant of left breast in female, estrogen receptor positive (HCC) Start: 05-20-2023 End: 05-20-2023 Office outpatient visit 25 minutes Stevie E Fanny DO Work Phone: [facility] Comment on above: Malignant neoplasm o f upper-outer quadrant of left breast in female, estrogen receptor positive (HCC) (Primary Dx) Start: 05-13-2023 End: 05-13-2023 ambulatory Stevie E Fanny DO Work Phone: [facility] Comment on above: Malignant neoplasm o f upper-outer quadrant of left breast in female, estrogen receptor positive (HCC) Start: 05-12-2023 Telephone encounter Stevie jacobsbel DO Work Phone: [facility] Comment on above: order for ECHO Start: 05-08-2023 Orders Only Stevie E Goebe l DO Work Phone: [facility] Comment on above: Malignant neoplasm o f upper-outer quadrant of left breast in female, estrogen receptor positive (HCC) (Primary Dx) Start: 05-06-2023 End: 05-06-2023 Office outpatient visit 25 minutes Stevie E Fanny DO Work Phone: [facility] Comment on above: Malignant neoplasm [...] Stevie E Goebe l DO Work Phone: [facility] Comment on above: Malignant neoplasm [...] Stevie E Goebe l DO Work Phone: [facility] Comment on above: Malignant neoplasm o f upper-outer quadrant of left breast in female, estrogen receptor positive (HCC) (Primary Dx) Start: 04-22-2023 End: 04-22-2023 Office outpatient visit 25 minutes Stevie E Fanny DO Work Phone: [facility] Comment on above: Malignant neoplasm [...] Stevie E Goebe l DO Work Phone: [facility] Start: 04-09-2023 Orders Only Stevie E Goebe l DO Work Phone: [facility] Comment on above: Malignant neoplasm o f upper-outer quadrant of left breast in female, estrogen receptor positive (HCC) (Primary Dx) Start: 04-08-2023 End: 04-08-2023 Office outpatient visit 25 minutes Stevie E Fanny DO Work Phone: [facility] Comment on above: Malignant neoplasm [...] positive (HCC) (HCC) Start: 04-02-2023 Orders Only Steive E Goebe l DO Work Phone: [facility] Comment on above: Malignant neoplasm [...] Only Stevie E Fanny DO Work Phone: [facility] Comment on above: Malignant neoplasm o f upper-outer quadrant of left breast in female, estrogen receptor positive (HCC) (Primary Dx) Malignant neoplasm o f upper-outer quadrant of left breast in female, estrogen receptor positive (HCC) ; Other general symptoms and signs Start: 03-24-2023 Refill Stevie E Goebe l DO Work Phone: [facility] Comment on above: Malignant neoplasm o f upper-outer quadrant of left breast in female, estrogen receptor positive (HCC) Start: 03-18-2023 End: 03-18-2023 Office outpatient new 60 minutes Stevie E Fanny DO Work Phone: [facility] Comment on above: Malignant neoplasm o f upper-outer quadrant of left breast in female, estrogen receptor positive (HCC) (Primary Dx); Other general symptoms and signs Start: 03-06-2023 End: 03-06-2023 Office outpatient new 60 minutes Vicki Diego MD Work Phone: [facility] [...] 25 minutes Marie Devi MD Work Phone: [facility] Comment on above: Depression [...] encounter procedure Alecia Hou MD Work Phone: [facility] Start: 02-06-2023 Telephone encounter Torrie Choi MD Work Phone: General Surgery Comment on above: Patient Update Start: 02-05-2023 Telephone encounter Torrie Choi MD Work Phone: General Surgery Comment on above: surgery concerns Start: 02-05-2023 End: 02-05-2023 Admission to establishment [place] [id number] Work Phone: [facility] Start: 02-05-2023 End: 02-05-2023 ambulatory [place] [address] Work Phone: Pre Anesthesia Comment on above: Pre-op evaluation (P rimary Dx); Past history of allergy to penicillin-type antibiotic; MARCY on CPAP; History of uterine cancer; Cerebrovascular accident (CVA), unspecified mechanism (HCC); Anxiety and depression; Parkinsonism, unspecified Parkinsonism type (HCC); Personal history of penicillin allergy Start: 02-05-2023 End: 02-05-2023 Preprocedural examination done [place] [id number] Work Phone: [facility] Work Phone: Start: 02-03-2023 End: 02-03-2023 Orders [...] 25 minutes Marie Devi MD Work Phone: [facility] Comment on above: Parkinsonism, unspec ified [...] encounter procedure Dara Sorensen DO Work Phone: [facility] Comment on above: Seborrheic keratosis (Primary Dx); Pigmented skin lesion suspicious for malignant neoplasm Start: 10-24-2022 End: 10-24-2022 Office outpatient visit 15 minutes Dara Sorensen DO Work Phone: [facility] Comment on above: Seborrheic keratosis (Primary Dx) Start: 09-26-2022 ambulatory MD MARIE Acosta ility:[id number] Start: 08-13-2022 AUDIT Marie Devi Work Phone: [facility] Work Phone: Start: 07-19-2022 Chart Update Marie [...] Start: 09-21-2021 Documentation procedure Mammography Coordinator [facility] Start: 09-21-2021 Letter encounter Mammography Coordinator [facility] Department Start: 09-21-2021 End: 09-21-2021 Subsequent hospital [...] visit 25 minutes Marie Devi Work Phone: [facility] Work Phone: Start: 11-11-2020 Rx Renewal Marie Devi Work Phone: [facility] Work Phone: Start: 07-12-2020 Patient [...] tissue head & neck real time imge malathi Devi MD Work Phone: Start: 07-15-2023 Comprehensive [...] Phone: Start: 04-01-2023 Comprehensive metabolic panel Stevie Schulteebel DO Work Phone: Start: 03-26-2023 Echo tthrc r-t 2d w/ wom-mode compl spec&colr d Stevie Vargas Fanny DO Work Phone: Start: 02-12-2023 Perq [...] History of Breast Woods rgery Lumpectomy Marie Shandra Hysterectomy Marie Devi Plan of Treatment Date Care Activity Detail Author Start: 09-01-2033 DTaP/Tdap/Td Vaccine s (2 - Td or Tdap) DTaP/Tdap/Td Vaccines (2 - Td or Tdap) [facility] Start: 09-01-2033 Urine microalbumin profile DTaP,Tdap,Td Vaccine (2 - Td or Tdap) [facility] Start: 12-11-2027 Diabetes Screening Diabetes Screenin g [facility] Start: 07-17-2027 Lipid panel Lipid Panel [facility] Start: 10-26-2026 Diabetes Screening Diabetes Screenin g [facility] Start: 03-24-2026 Oncology Follow-Up: Breast Cancer Survivorship Plan (#5) Oncology Follow-Up: Breast Cancer Survivorship [facility] (#5) [facility] Start: 02-05-2026 DIABETES SCREEN DIABETES SCREEN [facility] Start: 09-22-2025 Oncology Follow-Up: Breast Cancer Survivorship Plan (#4) Oncology Follow-Up: Breast Cancer Survivorship Plan (#4) [facility] Start: 09-18-2025 Medicare Annual Wellness Visit Medicare Annual Wellness Visit (AWV) [facility] Start: 09-02-2025 DIABETES SCREEN DIABETES SCREEN [facility] Start: 04-12-2025 End: 04-12-2025 Patient encounter procedure 04/12/2025 8:45 AM EDT Office Visit [facility] [place] [address] [place] [phone] Stevie Escobedo DO [address] [place] [address] [facility] [place] Start: 03-26-2025 End: 10-08-2025 DBT Breast - bilateral screening Bilateral screening mammogram with tomosynthesis Imaging Routine Malignant neoplasm of upper-outer quadrant of left breast in female, estrogen receptor positive (HCC) Expected: 03/26/2025, Expires: 10/08/2025 [facility] Work Phone: Comment on above: Expected: 03/26/2025 , Expires: 10/08/2025 Start: 03-24-2025 Oncology Follow-Up: Breast Cancer Survivorship Plan (#3) Oncology Follow-Up: Breast Cancer Survivorship Plan (#3) [facility] Start: 03-16-2025 End: 03-16-2025 Patient encounter procedure 03/16/2025 1:30 PM EDT Appointment [facility] [address] [place] [phone] Stevie Escobedo DO [address] [place] [address] Vicki Diego MD [address] [place] [address] [facility] [place] Start: 03-11-2025 End: 03-11-2025 Patient encounter procedure 03/11/2025 11:00 AM EDT Office Visit Neurology Epilepsy [address] [place] [address] Christopher Proctor MD [address] [place] [address] Epilepsy Neurology Epilepsy Comment on above: Epilepsy Start: 02-21-2025 Influenza vaccination Influenza Vacc ine (#1) [facility] Start: 02-14-2025 End: 02-14-2025 Patient encounter procedure 02/14/2025 9:30 AM EDT Office Visit Cerebrovascular [address] [place] [phone] Sara Ramey, TAIWO.MACHINE TECH [address] [place] [address] Cerebrovascular Start: 01-26-2025 End: 01-26-2025 Patient encounter procedure 01/26/2025 8:00 AM EDT Office Visit [facility] [address] [place] [address] Leonardo Santos DO [address] [facility] [place], [place] [id number] [facility] Start: 09-22-2024 Screening for malign ant neoplasm of breast Mammogram: Breast Cancer Survivorship Plan (#2) [facility] Start: 08-10-2024 End: 08-10-2024 Patient encounter procedure [facility] Start: 07-31-2024 Medicare Annual Wellness Visit Medicare Annual Wellness Visit (AWV) [facility] Start: 06-23-2024 Advance Directive Discussion Advance Directive Discussion [facility] Start: 06-23-2024 Medicare Advantage Annual Wellness Visit Medicare Advantage Annual Wellness Visit [facility] Start: 03-25-2024 End: 03-25-2024 Patient encounter procedure 03/25/2024 2:20 PM EDT Appointment Mammography [address] [place] [address] Procedure: LEE SCREENING W SHIVA Mammography Comment on above: Procedure: LEE SCREE MAZIN W SHIVA Start: 03-24-2024 Complete blood count ONCBCN Woods rvivorship Screening (#1) [facility] Start: 03-24-2024 Screening for malign ant neoplasm of breast Mammogram: Breast Cancer Survivorship Plan (#1) [facility] Start: 03-17-2024 End: 03-17-2024 Patient encounter procedure 03/17/2024 2:30 PM EDT Appointment [facility] [address] [place] [phone] Stevie Escobedo DO [address] [place], [place] [id number] Vicki Diego MD [address] [place] [address] [facility] Start: 02-22-2024 COVID-19 Vaccine ( season) COVID-19 Vaccine ( season) [facility] Start: 02-22-2024 Covid-19 Vaccine ( season) Covid-19 Vaccine () [facility] Start: 02-22-2024 Influenza vaccination Influenza Vacc ine (#1) [facility] Start: 02-19-2024 End: 02-19-2024 Patient encounter procedure 02/19/2024 9:15 AM EDT Office Visit General Surgery [address] [place] [address] Torrie Choi MD [address] [facility] [place] [address] follow up General Surgery Comment on above: follow up Start: 02-18-2024 End: 02-18-2024 Patient encounter procedure 02/18/2024 7:00 AM EDT Office Visit [facility] [address] [place] [phone] Marie eDvi MD [address] [facility] [place], [place] [address] [facility] Start: 02-03-2024 End: 02-03-2024 Patient encounter procedure 02/03/2024 9:30 AM EDT Office Visit [facility] [address] [place] [phone] Stevie Escobedo DO [address] [place] [address] [facility] Start: 01-12-2024 Depression Monitoring Depression Mon [facility] Start: 01-12-2024 Depresssion Monitoring Depresssion M [facility] Start: 12-16-2023 End: 12-16-2023 Patient encounter procedure 12/16/2023 9:30 AM EDT Office Visit [facility] [address] [place] [id number] Stevie Escobedo DO [address] [place] [address] [facility] Start: 12-16-2023 End: 12-16-2023 ambulatory 12/16/2023 9:00 AM EDT Infusion [facility] [address] [place] [phone] Stevie Escobedo DO [address] [place] [address] [facility] Start: 12-03-2023 End: 12-03-2023 Patient encounter procedure 12/03/2023 9:00 AM EDT [facility]ointment [facility] [address] [place] [address] Dara Kearney, PATRIC [facility] Start: 12-01-2023 End: 12-01-2023 Home visit 12/01/2023 9:00 AM EDT Home Care Visit [facility] [address] [place] [address] Dara Kearney, PATRIC [facility] Start: 11-27-2023 End: 11-27-2023 Home visit 11/27/2023 8:00 AM EDT Home [facility] Visit [facility] [address] [place] [address] Dara Kearney, SEALER OPERATOR [facility] Start: 11-26-2023 End: 11-26-2023 Patient encounter procedure 11/26/2023 9:00 AM EDT Appointment [facility] [address] [place] [address] Hugo Louise, HANNAH [facility] Start: 11-25-2023 End: 11-25-2023 Home visit 11/25/2023 10:00 AM EDT Home [facility] Visit [facility] [address] [place] [address] Dara Kearney SLP [facility] Start: 11-25-2023 End: 11-25-2023 ambulatory 11/25/2023 9:00 AM EDT Infusion [facility] [address] [place] [address] Stevie Escobedo DO [address] [place] [address] [facility] Start: 11-20-2023 End: 11-20-2023 Home visit [facility] Start: 11-19-2023 End: 11-19-2023 Home visit 11/19/2023 8:00 AM EDT Home Care Visit [facility] [address] [place] [address] Hugo Louise RN [facility] Start: 11-18-2023 End: 11-18-2023 Home visit 11/18/2023 12:30 PM EDT Home [facility] Visit [facility] [address] [place] [address] Dara Kearney SLP [facility] Start: 11-13-2023 End: 11-13-2023 Home visit 11/13/2023 12:30 PM EDT Home [facility] Visit [facility] [address] [place] [address] Dara Kearney, PATRIC [facility] Start: 11-12-2023 End: 11-12-2023 Home visit [facility] Start: 11-04-2023 End: 11-03-2024 CBC W Auto Differential panel - Blood CBC auto differential Lab STAT Malignant neoplasm of upper-outer quadrant of left breast in female, estrogen receptor positive (HCC) Expected: 11/04/2023, Expires: 11/03/2024 [employer] Work Phone: Comment on above: Expected: 11/04/2023 , Expires: 11/03/2024 Start: 11-04-2023 End: 11-03-2024 Comprehensive metabolic 2000 panel - Serum or Plasma Comprehensive Metabolic Panel - [facility] Lab STAT Malignant neoplasm of upper-outer quadrant of left breast in female, estrogen receptor positive (HCC) Expected: 11/04/2023, Expires: 11/03/2024 [facility] [employer] Comment on above: Expected: 11/04/2023 , Expires: 11/03/2024 Start: 11-04-2023 End: 11-04-2023 ambulatory 11/04/2023 10:00 AM EDT [facility]fusion [facility] [address] [place] [address] Stevie Escobedo, DO [address] [place] [address] [facility] Start: 11-04-2023 End: 11-04-2023 Patient encounter procedure 11/04/2023 9:45 AM EDT Office Visit [facility] [address] 1[address] [place] [phone] Stevie Escobedo, DO [address] [place] [place] [address] [facility] Start: 10-14-2023 End: 10-13-2024 CBC W Auto Differential panel - Blood CBC auto differential Lab STAT Malignant neoplasm of upper-outer quadrant of left breast in female, estrogen receptor positive (HCC) (HCC) Expected: 10/14/2023, Expires: 10/13/2024 [facility] [employer] Work Phone: Comment on above: Expected: 10/14/2023 , Expires: 10/13/2024 Start: 10-14-2023 End: 10-13-2024 Comprehensive metabolic 2000 panel - Serum or Plasma Comprehensive Metabolic Panel - [facility] Lab STAT Malignant neoplasm of upper-outer quadrant of left breast in female, estrogen receptor positive (HCC) (HCC) Expected: 10/14/2023, Expires: 10/13/2024 [employer] Comment on above: Expected: 10/14/2023 , Expires: 10/13/2024 Start: 10-14-2023 End: 10-14-2023 Patient encounter procedure [facility] Start: 10-14-2023 End: 10-14-2023 ambulatory [facility] Start: 09-23-2023 End: 09-22-2024 CBC W Auto Differential panel - Blood CBC auto differential Lab STAT Malignant neoplasm of upper-outer quadrant of left breast in female, estrogen receptor positive (HCC) (HCC) Expected: 09/23/2023, Expires: 09/22/2024 [employer] Work Phone: Comment on above: Expected: 09/23/2023 , Expires: 09/22/2024 Start: 09-23-2023 End: 09-22-2024 Comprehensive metabolic 2000 panel - Serum or Plasma Comprehensive Metabolic Panel - [facility] Lab STAT Malignant neoplasm of upper-outer quadrant of left breast in female, estrogen receptor positive (HCC) (HCC) Expected: 09/23/2023, Expires: 09/22/2024 [employer] Comment on above: Expected: 09/23/2023 , Expires: 09/22/2024 Start: 09-23-2023 End: 09-23-2023 ambulatory [facility] Start: 09-18-2023 End: 07-29-2025 US Heart Transthoracic Transthoracic echocardiogram (TTE) complete with contrast, bubble, strain, and 3D PRN CV Echocardiography Routine Admission for therapeutic drug monitoring Encounter for monitoring cardiotoxic drug therapy Expected: 09/18/2023 (Approximate), Expires: 07/29/2025 [employer] Work Phone: Comment on above: Expected: 09/18/2023 (Approximate), Expires: 07/29/2025 Start: 09-18-2023 End: 09-18-2023 Patient encounter procedure [facility] Non-Invasive Cardiology Start: 09-16-2023 End: 09-16-2023 ambulatory 09/16/2023 1:00 PM EDT [facility]fusion [facility] [address] [place] [phone] Stevie Escobedo DO [address] [place] [address] [facility] Start: 09-12-2023 End: 09-12-2023 Patient encounter procedure 09/12/2023 1:30 PM EDT Appointment [facility] [address] [place] [address] Vicki Diego MD [address] [facility] [address] [place], [place] [phone] [facility] Start: 09-11-2023 End: 09-11-2023 Patient encounter procedure 09/11/2023 1:30 PM EDT Appointment [facility] [address] [place] [address] Vicki Diego MD [address] [facility] [address] [place] [address] [facility] Start: 09-05-2023 End: 09-05-2023 Patient encounter procedure [facility] Start: 09-05-2023 Subsequent hospital visit by physician 09/05/2023 10:00 AM EDT Hospital Encounter [facility] [place] [facility] [address] [place] [address] Stevie Escobedo DO [address] [place] [address] [facility] Start: 09-02-2023 End: 09-02-2024 Comprehensive metabolic 2000 panel - Serum or Plasma Comprehensive Metabolic Panel - [facility] Lab STAT Malignant neoplasm of upper-outer quadrant of left breast in female, estrogen receptor positive (HCC) (HCC) Expected: 09/02/2023, Expires: 09/02/2024 [facility] Work Phone: Comment on above: Expected: 09/02/2023 , Expires: 09/02/2024 Start: 09-02-2023 End: 09-01-2024 DXA Skeletal system.axial Views for bone density DEXA bone density axial skeleton Imaging Routine Malignant neoplasm of upper-outer quadrant of left breast in female, estrogen receptor positive (HCC) (HCC) Asymptomatic menopausal state Encounter for monitoring anastrozole therapy Expected: 09/02/2023, Expires: 09/01/2024 [facility] [employer] [facility] Work Phone: Comment on above: Expected: 09/02/2023 , Expires: 09/01/2024 Start: 09-02-2023 End: 09-02-2023 ambulatory 09/02/2023 9:00 AM EDT [facility]fusion [facility] [address] [place] [address] Stevie Escobedo, DO [address] [place] [address] [facility] Start: 09-02-2023 End: 09-02-2023 Patient encounter procedure 09/02/2023 8:45 AM EDT Office Visit [facility] [address] [place] [address] [place] [address] Stevie Escobedo, DO [address] [place], [place] [phone] [facility] Start: 08-26-2023 End: 08-26-2023 Patient encounter procedure 08/26/2023 9:45 AM EST Office Visit [facility] [address] [place] [address] [place] [address] Stevie Escobedo, DO [address] [place] [address] [place] [address] [facility] Start: 08-26-2023 End: 08-26-2023 ambulatory 08/26/2023 9:00 AM EST [facility]fusion [facility] [address] [place] [address] Stevie Escobedo DO [address] [place] [place] [address] [facility] Start: 08-12-2023 End: 08-12-2023 Patient encounter procedure 08/12/2023 1:15 PM EST Appointment [facility] [address] [place] [address] [facility] Start: 08-12-2023 End: 08-12-2023 ambulatory 08/12/2023 8:00 AM EST [facility]fusion [facility] [address] [place] [address] Stevie Escobedo DO [address] [place] [place] [address] [facility] Start: 08-11-2023 End: 08-11-2023 Patient [...] [facility] [address] [place] [address] Stevie Escobedo DO [address] [place] [place] [address] [facility] Start: 08-04-2023 End: 08-04-2023 Patient encounter procedure [facility] Start: 08-01-2023 End: 08-01-2023 Patient encounter procedure [facility] Start: 07-31-2023 End: 07-31-2023 Patient encounter procedure [facility] Start: 07-30-2023 End: 07-30-2023 Patient encounter procedure [facility] Start: 07-30-2023 End: 07-30-2023 Patient encounter procedure 07/30/2023 7:10 AM EST Office Visit [facility] [address] [place] [phone] Marie Devi MD [address] [facility], [address] [place], [place] [address] [facility] Start: 07-29-2023 End: 07-29-2023 Patient [...] [facility] [address] [place] [phone] [facility] Start: 07-18-2023 Medicare Annual Wellness Visit Medicare Annual Wellness Visit (AWV) [facility] Start: 07-18-2023 End: 07-18-2023 Patient encounter procedure 07/18/2023 1:15 PM EST Appointment [facility] [address] [place] [phone] [facility] Start: 07-17-2023 End: 07-17-2023 Patient encounter procedure 07/17/2023 4:15 PM EST Appointment [facility] [address] [place] [phone] Vicki Diego MD [address] [facility] [address] [place], [place] [phone] [facility] Start: 07-17-2023 End: 07-17-2023 Patient encounter procedure 07/17/2023 2:45 PM EST Appointment [facility] [address] [place] [phone] Vicki Diego MD [address] [facility] [address] [place], [place] [phone] [facility] Start: 07-16-2023 End: 07-16-2023 Patient encounter procedure 07/16/2023 4:15 PM EST Appointment [facility] [address] [place] [phone] [facility] Start: 07-15-2023 End: 07-15-2023 ambulatory [facility] Comment on above: Arrived Start: 07-15-2023 End: 07-15-2023 Patient encounter procedure [facility] Start: 07-14-2023 End: 07-14-2023 Patient encounter procedure 07/14/2023 4:15 PM EST Appointment [facility] [address] [place] [address] [facility] Start: 07-11-2023 End: 07-11-2023 Patient encounter procedure 07/11/2023 2:15 PM EST Appointment [facility] [address] [place] [address] Vicki Diego MD [id number] [place], [place] [phone] [facility] Start: 07-03-2023 End: 07-03-2023 Patient encounter procedure [facility] Start: 06-26-2023 End: 05-12-2025 US Heart Transthoracic Transthoracic echocardiogram (TTE) complete with contrast, bubble, strain, and 3D PRN CV Echocardiography Routine Encounter for monitoring cardiotoxic drug therapy Expected: 06/26/2023 (Approximate), Expires: 05/12/2025 [facility] Work Phone: Comment on above: Expected: 06/26/2023 (Approximate), Expires: 05/12/2025 Start: 06-26-2023 End: 06-26-2023 Patient encounter procedure 06/26/2023 11:00 AM EST Appointment [facility] Non-Invasive Cardiology [address] [place] [address] Stevie Escobedo DO [address] [place] [address] [place] [address] [facility] Non-Invasive Cardiology Start: 06-24-2023 End: 06-24-2023 Patient encounter procedure [facility] Start: 06-24-2023 End: 06-24-2023 ambulatory 06/24/2023 8:00 AM EST [facility]fusion [facility] [address] [place] [address] Stevie Escobedo DO [address] [place] [address] [facility] Start: 06-23-2023 Advance Directive Discussion Advance Directive Discussion [facility] Start: 06-23-2023 Medicare Advantage Annual Wellness Visit Medicare Advantage Annual Wellness Visit [facility] Start: 06-20-2023 End: 06-20-2023 ambulatory [facility] Start: 06-17-2023 End: 06-17-2023 Patient encounter procedure 06/17/2023 10:30 AM EST Office Visit [facility] [address] 1[address] [place] [address] Stevie Escobedo DO [address] [place] [address] [place] [address] [facility] Start: 06-17-2023 End: 06-17-2023 ambulatory 06/17/2023 10:00 AM EST [facility]fusion [facility] [address] [place] [address] Stevie Escobedo DO [address] [place] [address] [place] [address] [facility] Start: 06-13-2023 End: 06-13-2023 ambulatory 06/13/2023 9:00 AM EST [facility]fusion [facility] [address] [place] [address] Stevie Escobedo DO [address] [place] [address] [place] [address] [facility] Start: 06-10-2023 End: 06-10-2023 ambulatory 06/10/2023 10:00 AM EST [facility]fusion [facility] [address] [place] [address] Stevie Escobedo DO [address] [place] [address] [place] [address] [facility] Start: 06-06-2023 End: 06-06-2023 ambulatory 06/06/2023 9:00 AM EST [facility]fusion [facility] [address] [place] [address] Stevie Escobedo DO [address] [place] [address] [place] [address] [facility] Start: 06-03-2023 End: 06-03-2023 Patient encounter procedure 06/03/2023 11:45 AM EST Office Visit [facility] [address] [place] [address] [place] [address] Stevie Escobedo DO [address] [place] [address] [place] [address] [facility] Start: 06-03-2023 End: 06-03-2023 Patient encounter procedure 06/03/2023 9:15 AM EST Office Visit [facility] [address] [place] [address] [place] [address] Stevie Escobedo DO [address] [place] [address] [place] [address] [facility] Start: 06-03-2023 End: 06-03-2023 ambulatory [facility] Start: 05-30-2023 End: 05-30-2023 ambulatory 05/30/2023 9:00 AM EST Infusion [facility] [address] [place] [address] Stevie Escobedo DO [address] [place] [address] [facility] Start: 05-27-2023 End: 05-27-2023 ambulatory [facility] Start: 05-23-2023 End: 05-23-2023 ambulatory 05/23/2023 9:00 AM EST Infusion [facility] [address] [place] [phone] Stevie Escobedo DO [address] [place] [address] [facility] Start: 05-20-2023 End: 05-20-2023 Patient encounter procedure 05/20/2023 10:15 AM EST Office Visit [facility] [address] [place] [address] [place] [address] Stevie Escobedo DO [address] [place] [place] [address] [facility] Start: 05-20-2023 End: 05-20-2023 ambulatory 05/20/2023 9:00 AM EST [facility]fusion [facility] [address] [place] [address] Stevie Escobedo DO [address] [place] [place] [address] [facility] Start: 05-13-2023 End: 05-13-2023 ambulatory [facility] Start: 05-06-2023 End: 05-06-2023 Patient encounter procedure 05/06/2023 10:45 AM EST Office Visit [facility] [address]st [place] [phone] Stevie Escobedo DO [address] [place] [address] [facility] Start: 05-06-2023 End: 05-06-2023 ambulatory [facility] Start: 04-29-2023 End: 04-29-2023 ambulatory [facility] Start: 04-22-2023 End: 04-22-2023 Patient encounter procedure 04/22/2023 8:45 AM EDT Office Visit [facility] [address] [place] [place] [address] Stevie Escobedo DO [address] [place] [address] [facility] Start: 04-22-2023 End: 04-22-2023 ambulatory [facility] Start: 04-15-2023 End: 04-15-2023 ambulatory [facility] Start: 04-08-2023 End: 04-08-2023 Patient encounter procedure 04/08/2023 10:45 AM EDT Office Visit [facility] [address] [place] [address] [place] [address] Stevie Escobedo DO [address] [place] [address] [facility] Start: 04-08-2023 End: 04-08-2023 ambulatory [facility] Start: 04-01-2023 End: 04-01-2023 ambulatory 04/01/2023 8:00 AM EDT Infusion [facility] [address] [place] [address] [facility] Start: 03-31-2023 End: 03-31-2023 ambulatory 03/31/2023 11:00 AM EDT [facility]fusion [facility] [address] [place] [phone] Stevie Escobedo DO [address] [place] [address] [place] [address] [facility] Start: 03-26-2023 End: 03-26-2023 Patient encounter procedure 03/26/2023 2:00 PM EDT Appointment [facility] Stress 1 [place] [address] Stevie Escobedo DO [address] [place], [place] [phone] [facility] Start: 03-18-2023 End: 03-18-2025 US Heart Transthoracic Transthoracic echocardiogram (TTE) complete with contrast, bubble, strain, and 3D PRN CV Echocardiography Routine Malignant neoplasm of upper-outer quadrant of left breast in female, estrogen receptor positive (HCC) Other general symptoms and signs Expected: 03/18/2023 (Approximate), Expires: 03/18/2025 [facility] [employer] Work Phone: Comment on above: Expected: 03/18/2023 (Approximate), Expires: 03/18/2025 Start: 03-18-2023 End: 03-18-2023 Patient encounter procedure 03/18/2023 1:30 PM EDT Office Visit [facility] [address] [place] [place] [address] Stevie Escobedo DO [address] [place], [place] [phone] [facility] Start: 02-21-2023 COVID-19 Vaccine ( season) COVID-19 Vaccine ( season) [facility] Start: 02-21-2023 Influenza vaccination [facility] Start: 02-10-2023 End: 02-10-2023 Patient encounter procedure 02/10/2023 3:30 PM EDT Office Visit [facility] [address] [place] [address] [address] [place] [phone] Marie Devi MD [address] [place] [address], [address] [place], [place] [phone] [facility] Start: 01-23-2023 FUV, Provider: Marie Devi, Status: Pen, Time: 7:10 AM FUV, Provider: Marie Devi, Status: Pen, Time: 7:10 AM [facility] Work Phone: Start: 01-23-2023 End: 01-23-2023 Patient encounter procedure 01/23/2023 7:10 AM EDT Office Visit [facility] [address] [place] [address] [address] [place] [phone] Marie Devi MD [address] [place] [address], [address] [place], [place] [phone] [facility] Start: 09-11-2022 Zoster Vaccines (2 o f 2) Zoster Vaccines (2 of 2) [facility] Start: 07-17-2022 Patient encounter procedure MCRANNUAL, Provider: Marie Devi, Status: Pen, Time: 7:10 AM [facility] Work Phone: Start: 06-23-2022 ADVANCE DIRECTIVE DISCUSSION ADVANCE DIRECTIVE DISCUSSION [facility] Start: 06-23-2022 DEPRESSION ASSESSMENT DEPRESSION ASS ESSMENT [facility] Start: 01-10-2022 FUV, Provider: Marie Devi, Status: Pen, Time: 7:10 AM FUV, Provider: Marie Devi, Status: Pen, Time: 7:10 AM [facility] Work Phone: Start: 08-01-2021 COVID-19 Vaccine (4 - Booster for Moderna series) COVID-19 Vaccine (4 - Booster for Moderna series) [facility] Start: 08-01-2021 COVID-19 Vaccine (4 - Moderna risk series) COVID-19 Vaccine (4 - Moderna risk series) [facility] Start: 08-01-2021 COVID-19 VACCINE (4 - Moderna series) COVID-19 VACCINE (4 - Moderna series) [facility] Start: 07-12-2021 FUV, Provider: Marie Devi, Status: Pen, Time: 7:00 AM FUV, Provider: Marie Devi, Status: Pen, Time: 7:00 AM [facility] Work Phone: Start: 06-23-2021 ADVANCE DIRECTIVE DISCUSSION ADVANCE DIRECTIVE DISCUSSION [facility] Start: 2021 RSV High Risk: (Elde rly (60+) or Population) (1 - 1-dose 75+ series) RSV High Risk: (Elderly (60+) or Population) (1 - 1-dose 75+ series) [facility] Start: 2021 RSV Immunization for Adults (1 - 1-dose 75+ series) RSV Immunization for Adults (1 - 1-dose 75+ series) [facility] Start: 2021 RSV Vaccine (1 - 1-d ose 75+ series) RSV Vaccine (1 - 1-dose 75+ series) [facility] Start: 01-10-2021 FUV, Provider: Marie Devi, Status: Pen, Time: 7:00 AM FUV, Provider: Marie Devi, Status: Pen, Time: 7:00 AM [facility] Work Phone: Start: 05-31-2020 Pneumococcal vaccination Pneumococcal Vaccine (3 of 3 - PCV20 or PCV21) [facility] Start: 05-31-2020 Pneumococcal Vaccine : 50+ (3 of 3 - PCV20 or PCV21) Pneumococcal Vaccine: 50+ (3 of 3 - PCV20 or PCV21) [facility] Start: 05-31-2020 Pneumococcal Vaccine : 65+ (3 of 3 - PPSV23 or PCV20) Pneumococcal Vaccine: 65+ (3 of 3 - PPSV23 or PCV20) [facility] Start: 05-31-2020 Pneumococcal Vaccine : 65+ Years (3 - PPSV23 or PCV20) Pneumococcal Vaccine: 65+ Years (3 - PPSV23 or PCV20) [facility] Start: 01-05-2020 Xray Bone Dens ity, Dexa 1 or More Sites [facility] Work Phone: Start: 05-31-2016 Pneumococcal Vaccine : 65+ Years (#3) Pneumococcal Vaccine: 65+ Years (#3) [facility] Start: 05-31-2016 Pneumococcal Vaccine : 65+ Years (3 - PPSV23 if available, else PCV20) Pneumococcal Vaccine: 65+ Years (3 - PPSV23 if available, else PCV20) [facility] Start: 05-31-2016 Pneumococcal Vaccine : 65+ Years (3 - PPSV23 or PCV20) Pneumococcal Vaccine: 65+ Years (3 - PPSV23 or PCV20) [facility] Start: 07-31-2015 Pneumococcal Vaccine : 50+ Years (3 of 3 - PPSV23, PCV20 or PCV21) Pneumococcal Vaccine: 50+ Years (3 of 3 - PPSV23, PCV20 or PCV21) [facility] Start: 07-31-2015 Pneumococcal Vaccine : 65+ Years (3 of 3 - PPSV23 or PCV20) Pneumococcal Vaccine: 65+ Years (3 of 3 - PPSV23 or PCV20) [facility] Start: 05-07-2015 LIPID SCREEN LIPID SCREEN [facility] Start: 05-18-2013 DIABETES SCREEN DIABETES SCREEN [facility] Start: 06-18-2011 Adult depression screening assessment DEPRESSION SCREENING [facility] Start: 2011 PNEUMOCOCCAL: 65+ (1 - PCV) PNEUMOCOCCAL: 65+ (1 - PCV) [facility] Start: 2011 PNEUMOVAX AGE 65 AND OVER WITH 5YR LOOKBACK (#1) PNEUMOVAX AGE 65 AND OVER WITH 5YR LOOKBACK (#1) [facility] Start: 2006 RSV Immunization age d 60 or older (1 - 1-dose 60+ series) RSV Immunization aged 60 or older (1 - 1-dose 60+ series) [facility] Start: 2006 RSV patient s and/or patients aged 60+ years (1 - 1-dose 60+ series) RSV patients and/or patients aged 60+ years (1 - 1-dose 60+ series) [facility] Start: 2006 RSV Vaccine (1 - 1-d ose 60+ series) RSV Vaccine (1 - 1-dose 60+ series) [facility] Start: 02-01-1996 SHINGRIX VACCINE (1 of 2) SHINGRIX VACCINE (1 of 2) [facility] Start: 1991 COLOGUARD (FIT-DNA) COLOGUARD (FIT-D NA) [facility] Start: 1991 Colonoscopy COLONOSCOPY [facility] Start: 1991 COLORECTAL CANCER SCREENING COLORECTAL CANCER SCREENING [facility] Start: [address] COLONOGRAPHY [facility] Start: 1991 FECAL OCCULT BLOOD FECAL OCCULT BLOO D [facility] Start: 1991 SIGMOIDOSCOPY SIGMOIDOSCOPY [facility] Start: 02-01-1968 DTaP/Tdap/Td Vaccine s (1 - Tdap) DTaP/Tdap/Td Vaccines (1 - Tdap) [facility] Start: 1965 DTaP/Tdap/Td Vaccine s (1 - Tdap) DTaP/Tdap/Td Vaccines (1 - Tdap) [facility] Start: 1965 Urine microalbumin profile DTAP,TDAP,TD (1 - Tdap) [facility] Start: 02-01-1964 HEPATITIS C SCREENING HEPATITIS C [facility] Start: 02-01-1964 Hepatitis C screening Hepatitis C [facility] Start: 1958 Depression Screening Depression Scre ening [facility] Start: 1958 Depresssion Monitoring Depresssion M onitoring [facility] Start: 1946 Medicare Advantage Annual Wellness Visit (AWV) Medicare Advantage Annual Wellness Visit (AWV) [facility] Start: 1946 Medicare Annual Wellness Visit Medicare Annual Wellness Visit (AWV) [facility] Start: 1946 Screening for osteoporosis Bone Density Scan [facility] End: 06-03-2023 Bacteria identified in Urine by Culture [facility] [employer] [facility] Work Phone: Comment on above: Once (Lab) for 1 Occ urrences starting 06/03/2023 until 06/03/2023 End: 03-24-2024 CBC W Auto Differential panel - Blood CBC auto differential Lab STAT Malignant neoplasm of upper-outer quadrant of left breast in female, estrogen receptor positive (HCC) Once a week for 14 Occurrences starting 03/25/2023 until 03/24/2024 [facility] Work [facility]: Comment on above: Once a week for 14 O ccurrences starting 03/25/2023 until 03/24/2024 End: 06-09-2024 CBC W Auto Differential panel - Blood CBC auto differential Lab STAT Malignant neoplasm of upper-outer quadrant of left breast in female, estrogen receptor positive (HCC) Every 3 weeks for 8 Occurrences starting 06/10/2023 until 06/09/2024 [facility]: Comment on above: Every 3 weeks for 8 Occurrences starting 06/10/2023 until 06/09/2024 End: 03-24-2024 Comprehensive metabolic 1998 panel - Serum or Plasma Comprehensive metabolic panel Lab STAT Malignant neoplasm of upper-outer quadrant of left breast in female, estrogen receptor positive (HCC) Once a week for 14 Occurrences starting 03/25/2023 until 03/24/2024 [employer] Comment on above: Once a week for 14 O ccurrences starting 03/25/2023 until 03/24/2024 End: 06-09-2024 Comprehensive metabolic 1998 panel - Serum or Plasma Comprehensive metabolic panel Lab STAT Malignant neoplasm of upper-outer quadrant of left breast in female, estrogen receptor positive (HCC) Every 3 weeks for 8 Occurrences starting 06/10/2023 until 06/09/2024 [employer] Comment on above: Every 3 weeks for 8 Occurrences starting 06/10/2023 until 06/09/2024 End: 07-03-2023 CT Sim [facility]: Comment on above: Once for 1 Occurrenc es starting 07/03/2023 until 07/03/2023 End: 03-04-2025 DBT Breast - bilateral screening LEE SCREENING W SHIVA Radiology Routine Visit for screening mammogram Malignant neoplasm of upper-outer quadrant of left breast in female, estrogen receptor positive (HCC) 1 Occurrences starting 02/04/2024 until 03/04/2025 [facility] Work Phone: Comment on above: 1 Occurrences starti ng 02/04/2024 until 03/04/2025 DERMATOPATHOLOGY -DERMPATH LAB DERMATOPATHOLOGY -DERMPATH LAB Pathology and Cytology Routine Pigmented skin lesion suspicious for malignant neoplasm Ordered: 10/30/2022 [facility] Service Area Work Phone: Comment on above: Ordered: 10/30/2022 End: 03-04-2024 LEE NDL LOC W LEE GD LEFT LEE NDL LOC W LEE GD LEFT Radiology Routine Malignant neoplasm of upper-outer quadrant of left breast in female, estrogen receptor positive (HCC) 1 Occurrences starting 02/03/2023 until 03/04/2024 [facility] Work Phone: Comment on above: 1 Occurrences starti ng 02/03/2023 until 03/04/2024 End: 03-04-2024 NM INJ SENTINEL NODE BREAST LEFT NM INJ SENTINEL NODE BREAST LEFT Radiology Routine Malignant neoplasm of upper-outer quadrant of left breast in female, estrogen receptor positive (HCC) 1 Occurrences starting 02/03/2023 until 03/04/2024 [facility] Work Phone: Comment on above: 1 Occurrences starti ng 02/03/2023 until 03/04/2024 SURGICAL PATHOLOGY [facility] Work Phone: Comment on above: Release Upon Orderin g for 1 Occurrences starting 01/28/2023, 1 completed End: 02-20-2024 US BIOPSY BREAST LEFT US BIOPSY BREAST LEFT Radiology Routine Abnormal finding on radiological examination of breast 1 Occurrences starting 01/21/2023 until 02/20/2024 [facility] Work Phone: Comment on above: 1 Occurrences starti ng 01/21/2023 until 02/20/2024 End: 01-18-2025 US Carotid arteries - bilateral [facility] Work Phone: Comment on above: 1 Occurrences starti ng 01/18/2025 until 01/18/2025 End: 07-31-2023 US Thyroid gland [facility] Service Area Work Phone: Comment on above: Once for 1 Occurrenc es starting 07/31/2023 until 07/31/2023 Vascular US lower extremity venous duplex left Vascular US lower extremity venous duplex left CV Vascular Ultrasound STAT Malignant neoplasm of upper-outer quadrant of left breast in female, estrogen receptor positive (HCC) Localized edema 06/03/2023 3:42 PM EST [facility] Work Phone: [facility] Work Phone: [facility] NEGATED: Highlighted row has been ruled out! Planned Goals not documented [facility] Work Phone: Immunizations Immunization Date Immunization Notes Care Provider Z[facility] 03-12-2024 influenza, high dose seasonal, preservative-free Leonardo Stanec DO Work Phone: [facility] 03-12-2024 influenza virus vaccine, unspecified formulation Sara Ramey APRN.MACHINE TECH Work Phone: [facility] 09-02-2023 tetanus toxoid, redu allegra diphtheria toxoid, and acellular pertussis vaccine, adsorbed Leonardo Stanec DO Work Phone: [facility] 03-13-2023 influenza virus vaccine, unspecified formulation [facility] 03-03-2023 Flu vaccine, quadrivalent, high-dose, preservative free, age 65y+ (FLUZONE) Marie Devi MD Work Phone: [facility] Work Phone: 03-03-2023 influenza virus vaccine, unspecified formulation Torrie Choi MD Work Phone: [facility] 02-27-2023 zoster vaccine recombinant Marie Devi MD Work Phone: [facility] Work Phone: 07-17-2022 Fluzone High-Dose Quadrivalent 0.7 ML Intramuscular Suspension Prefilled Syringe; Translations: [Fluzone High-Dose Quadrivalent 0.7 ML Intramuscular Suspension Prefilled Syringe] Marie Devi Work Phone: [facility] Work Phone: Comment on above: Series: 07-17-2022 influenza, high dose seasonal, preservative-free Marie Devi MD Work Phone: [facility] Work Phone: 07-17-2022 zoster vaccine recombinant Dara Sorensen DO Work Phone: [facility] Work Phone: 07-17-2022 influenza virus vaccine, unspecified formulation Marie Devi MD Work Phone: [facility] Work Phone: 07-12-2021 Fluzone High-Dose Quadrivalent 0.7 ML Intramuscular Suspension Prefilled Syringe; Translations: [Fluzone High-Dose Quadrivalent 0.7 ML Intramuscular Suspension Prefilled Syringe] Marie Devi Work Phone: [facility] Work Phone: Comment on above: Series: 07-12-2021 influenza, high dose seasonal, preservative-free Marie Deiv MD Work Phone: [facility] Work Phone: 07-12-2021 influenza, seasonal, injectable Dara Sorensen DO Work Phone: [facility] Work Phone: 07-12-2021 influenza virus vaccine, unspecified formulation Dara Sorensen DO Work Phone: [facility] Work Phone: 06-06-2021 Moderna COVID-19 Vaccine 100 MCG/0.5ML Intramuscular Suspension Marie Devi Work Phone: [facility] Work Phone: 10-14-2020 Moderna COVID-19 Vaccine 100 MCG/0.5ML Intramuscular Suspension Marie Devi Work Phone: [facility] Work Phone: 09-16-2020 Moderna COVID-19 Vaccine 100 MCG/0.5ML Intramuscular Suspension Marie Devi Work Phone: [facility] Work Phone: 07-06-2019 influenza, high dose seasonal, preservative-free; Translations: [Fluzone High-Dose 0.5 ML Intramuscular Suspension Prefilled Syringe] [facility] Work Phone: Comment on above: Series: 07-06-2019 influenza virus vaccine, unspecified formulation Dara Sorensen DO Work Phone: [facility] Work Phone: 06-26-2018 influenza, high dose seasonal, preservative-free; Translations: [Fluzone High-Dose 0.5 ML Intramuscular Suspension Prefilled Syringe] Marie Devi [facility] Work Phone: Comment on above: Series: 06-10-2017 influenza, high dose seasonal, preservative-free; Translations: [Fluzone High-Dose 0.5 ML Intramuscular Suspension Prefilled Syringe] Marie Stelladina [facility] Work Phone: Comment on above: Series: 05-23-2016 influenza, seasonal, injectable Dara Sorensen DO Work Phone: [facility] Work Phone: 05-23-2016 influenza, injectabl e, quadrivalent, preservative free; Translations: [Fluarix Quadrivalent 0.5 ML Intramuscular Suspension Prefilled Syringe] Marie Devi [facility] Work Phone: Comment on above: Series: 05-31-2015 pneumococcal conjuga te vaccine, 13 valent; Translations: [Prevnar 13 Intramuscular Suspension] Marie Devi [facility] Work Phone: Comment on above: Series: 04-05-2015 influenza virus vaccine, unspecified formulation Dara Sorensen DO Work Phone: [facility] Work Phone: 06-01-2014 influenza, seasonal, injectable Dara Sorensen DO Work Phone: [facility] Work Phone: 06-01-2014 influenza, injectabl e, quadrivalent, preservative free; Translations: [Fluzone Quadrivalent 0.5 ML Intramuscular Suspension] Marie Devi [facility] Work Phone: Comment on above: Series: 05-27-2013 influenza virus vaccine, unspecified formulation Marie Devi Work Phone: [facility] Work Phone: Comment on above: Series: 05-27-2013 influenza, seasonal, injectable Dara Mesko DO Work Phone: [facility] Work Phone: 05-27-2013 influenza, seasonal, injectable Marie Devi [facility] Work Phone: 04-03-2012 influenza, seasonal, injectable Dara Mesko DO Work Phone: [facility] Work Phone: 04-02-2012 influenza virus vaccine, unspecified formulation Marie Stanley Stelladina Work Phone: [facility] Work Phone: Comment on above: Series: 04-02-2012 influenza, seasonal, injectable Marie Devi [facility] Work Phone: 07-31-2010 influenza virus vaccine, unspecified formulation Marie Stanley Stelladina Work Phone: [facility] Work Phone: Comment on above: Series: 07-31-2010 pneumococcal polysaccharide vaccine, 23 valent Marie Stanley Stelladina Work Phone: [facility] Work Phone: Comment on above: Series: 07-31-2010 pneumococcal vaccine , unspecified formulation Marie Stanley Stelladina Work Phone: [facility] Work Phone: 07-31-2010 influenza, seasonal, injectable Marie Devi [facility] Work Phone: 07-31-2010 pneumococcal polysaccharide vaccine, 23 valent Marie Douglasdina [facility] Work Phone: influenza virus vaccine, unspecified formulation Marie Devi Work Phone: [facility] Work Phone: Comment on above: Approx 05Apr2015 Ser ies: influenza, seasonal, injectable Marie Devi [facility] Work Phone: Comment on above: Approx 05Apr2015 Payers Date Payer Category Payer Self-pay 2019 Medicare HMO [employer] MEDICARE [id number] 2013 Medicare HU[employer]NA MEDICARE [employer] MEDICARE PPO [id number] 2013-Present [phone] [address] [place] [id number] [id number] 2013 Medicare [id number] 2013 Medicare (Managed Care) 1.2. [id number] 2013 Private Health Insurance [id number] 1945 Unknown [id number] [id number] 1945 Unknown [id number]. [id number] 1945 Unknown [id number]. 2.1245 1945 Unknown [id number]. [id number] 1945 Unknown [id number] [id number] 1945 Unknown [id number]. 2.1244 1945 Unknown [id number]. 2.1244 1945 Unknown [id number]. [id number] 1945 Unknown [id number]. [id number] Unknown Unknown [id number]. [id number] Unknown [id number] [id number] Unknown [id number] [id number] Social History Date Type Detail Facility Start: 10-29-2022 End: 11-27-2022 Never a smoker Never a smoker [facility] Start: 10-24-2022 End: 01-03-2025 Tobacco smoking status NHIS Never smoked tobacco [facility] Start: 01-17-2020 End: 01-03-2025 Alcohol intake Current non-drinker of alcohol (finding) [facility] Start: 1945 Sex Assigned At Not on file [facility] Start: 09-11-2021 End: 09-17-2024 Exposure to SARS-CoV-2 (event) Not sure [facility] Start: 10-24-2022 End: 01-03-2025 Tobacco use and exposure Smokeless tobacco non-user [facility] Work Phone: Start: 10-29-2022 End: 11-27-2022 Gender identity Not on file [facility] National Score (1-100), lower number is lower risk 51 [facility] Start: 01-23-2023 End: 09-17-2024 Alcohol intake Ex-drinker (finding) [facility] Work Phone: How often to you hav e a drink containing alcohol? Never [facility] Has the electric, gas, oil, or water company threatened to shut off services in your home in past 12Mo No [facility] (I/We) worried whether (my/our) food would run out before (I/we) got money to buy more. Never true [facility] How often do you nee d to have someone help you when you read instructions, pamphlets, or other written material from your doctor or pharmacy [SILS] Patient unable to respond [facility] Work Phone: Start: 02-27-2023 Sex Female (finding[facility] How often do you nee d to have someone help you when you read instructions, pamphlets, or other written material from your doctor or pharmacy [SILS] Always [facility] Work Phone: History of tobacco use Passive smoker [facility] NEGATED: Highlighted row - - [facility] Work Phone: NEGATED: Highlighted rowStart: SHEA History of tobacco use Passive smoker [facility] Work Phone: Functional Status Date Assessment Result Facility 09-17-2024 Generalized anxiety disorder 7 item (CLIFTON-7) [facility] Work Phone: 09-17-2024 Patient Health Questionnaire 2 item (PHQ-2) [Reported] [facility] Work Phone: 09-17-2024 PHQ-9 quick depressi on assessment panel [Reported.PHQ] [facility] Work Phone: 10-14-2023 Are you deaf, or do you have serious difficulty hearing No 10/14/2023 3:43 PM EDT Claudia Carter LPN No [facility] 10-14-2023 Are you blind, or do you have serious difficulty seeing, even when wearing glasses No 10/14/2023 3:43 PM EDT Claudia Carter LPN No [facility] 10-14-2023 Do you have serious difficulty walking or climbing stairs Yes 10/14/2023 3:43 PM EDT Claudia Carter LPN Yes [facility] 10-14-2023 Do you have difficul ty dressing or bathing Yes 10/14/2023 3:43 PM EDT Claudia Carter LPN Yes [facility] 10-14-2023 Because of a physica l, mental, or emotional condition, do you have difficulty doing errands alone such as visiting a physician's office or shopping Yes 10/14/2023 3:43 PM EDT Claudia Carter LPN Yes [facility] Work Phone: NEGATED: Highlighted row Functional performance Functional status health issues are not documented Disease [facility] Work Phone: Mental Status Date Assessment Result Facility 10-14-2023 Because of a physical, mental, or emotional condition, do you have serious difficulty concentrating, remembering, or making decisions Yes 10/14/2023 3:43 PM EDT Claudia Carter LPN Yes [facility] NEGATED: Highlighted row Cognitive function [Interpretation] Cognitive status health issues are not documented Disease [facility] Work Phone: Clinical Notes 07-13-2020 to 01-18-2025 Allied Health - Yajaira Bautista, RT(R) - 01/18/2025 1:[facility] Yajaira Bautista, RT(R) - 01/18/2025 1:15 PM EDTTelephone Encounter - Sara Ramey APRN.MACHINE TECH - 01/12/2025 5:00 PM EDT Note Date & Type Note Facility 01-18-2025 Miscellaneous Notes Radiology Service Progress Note PATIENT NAME: Madiha Perales DATE OF SERVICE: January 18, 2025 TIME: 1:32 PM PATIENT IDENTITY VERIFICATION COMPLETED USING TWO (2) IDENTIFIERS: Name and Date of confirmed by patient verbally. FALL SCREENING: Has the patient had 2 falls in the last year or 1 fall with injury or currently using an Ambulatory Assistive Device (Walker, Cane, Wheelchair, Crutches, etc.)? Yes, Patient High Risk for Falls What interventions were put in place to prevent falls during this visit? Offered Assistance with Transfers/Clothing PATIENT GENDER DATA: Assigned female at . status: : No status: NO. PATIENT RELEVANT IMPLANT DATA REVIEWED: Not Applicable PATIENT PRESENTS WITH AN IMPLANTABLE OR ATTACHED BEDSPREAD CUTTER: No RADIOLOGY DEPARTMENT: Ultrasound PERIPHERAL IV DATA: Not applicable SIGNED BY: RT Akash(R) January 18, 2025 1:32 PM documented in this encounter [facility] 01-18-2025 Progress note Formatting of t his note might be different from the original. Radiology Service Progress Note PATIENT NAME: Madiha Perales DATE OF SERVICE: January 18, 2025 TIME: 1:32 PM PATIENT IDENTITY VERIFICATION COMPLETED USING TWO (2) IDENTIFIERS: Name and Date of confirmed by patient verbally. FALL SCREENING: Has the patient had 2 falls in the last year or 1 fall with injury or currently using an Ambulatory Assistive Device (Walker, Cane, Wheelchair, Crutches, etc.)? Yes, Patient High Risk for Falls What interventions were put in place to prevent falls during this visit? Offered Assistance with Transfers/Clothing PATIENT GENDER DATA: Assigned female at . status: : No status: NO. PATIENT RELEVANT IMPLANT DATA REVIEWED: Not Applicable PATIENT PRESENTS WITH AN IMPLANTABLE OR ATTACHED BEDSPREAD CUTTER: No RADIOLOGY DEPARTMENT: Ultrasound PERIPHERAL IV DATA: Not applicable SIGNED BY: RT Akash(Alanna) January 18, 2025 1:32 PM [facility] 01-12-2025 Telephone encounter Note Spoke with pt's daughter Wesley with patient's permission. She had called in recently because the patient was refusing her medications, closing her mouth and stating she wasn't going to take them. She hasn't heard anything from the facility since then. She is going to go see her mom soon and will see how things are going. She doesn't have a history of behavioral issues, so could be related to the keppra. If issues ongoing, will consider switching her over to vimpat. Wesley will keep us updated. Also discussed that reviewed imaging with Dr. Davenport, and does appear that there was a small stroke during recent admission, in addition to remote ischemic strokes. 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 Also recommend vessel imaging with carotid ultrasound. She has contrast dye allergy. Had MRA in the hospital. Then plan to follow up with me in [place] 02/14 to review results and see how things are going. Kya, can you help me communicate with [facility] in [place] regarding adding aspirin 81mg daily, and asking them to schedule her carotid ultrasound (they can use [phone])? The daughter wasn't sure whether she's supposed to schedule appts or if they do to arrange rides ,etc. I will amend her AVS from 01/03 so can use that as documentation. Thank you!! This is the address: [address], [place] [address] [facility] Work Phone: 01-12-2025 Miscellaneous Notes Spoke with pt's daughter Wesley with patient's permission. She had called in recently because the patient was refusing her medications, closing her mouth and stating she wasn't going to take them. She hasn't heard anything from the facility since then. She is going to go see her mom soon and will see how things are going. She doesn't have a history of behavioral issues, so could be related to the keppra. If issues ongoing, will consider switching her over to vimpat. Wesley will keep us updated. Also discussed that reviewed imaging with Dr. Davenport, and does appear that there was a small stroke during recent admission, in addition to remote ischemic strokes. 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 Also recommend vessel imaging with carotid ultrasound. She has contrast dye allergy. Had MRA in the hospital. Then plan to follow up with me in [place] 02/14 to review results and see how things are going. Kya, can you help me communicate with [facility] in [place] regarding adding aspirin 81mg daily, and asking them to schedule her carotid ultrasound (they can use [phone])? The daughter wasn't sure whether she's supposed to schedule appts or if they do to arrange rides ,etc. I will amend her AVS from 01/03 so can use that as documentation. Thank you!! This is the address: [address], [place] [address] documented in this encounter [facility] 01-07-2025 Telephone encounter Note Situation: Called and [...] Encounter routed to provider for her information. [facility] 01-07-2025 Miscellaneous Notes Situation: Called and spoke [...] Perales, 1945). Yes Number to return call [phone] Reason for Call: Patient Question/Update: Patient's daughter calling because since dosage change patient has been way more confused, daughter wondering if it should be once a day or twice a day. Thank you calling [facility]. You will receive a return call within 48 hours ( or 2 business days if close to the weekend). If you feel that this is an urgent issue and needs immediate attention, it is recommended that you contact your primary care provider office or proceed to your nearest Urgent Care Center of Emergency Room ED for evaluation/treatment. documented in this encounter [facility] 01-07-2025 Telephone encounter Note Situation: Called and [...] Recommendation: Encounter routed to provider for review. [facility] 01-07-2025 Telephone encounter Note CV PHONE Name of caller : Stevie Relationship to patient : Daughter If not self Will need patient permission to release results or disclose health information with called documented in . Patient identified by Name and Date of . ( Madiha Perales, 1945). Yes Number to return call [phone] Reason for Call: Patient Question/Update: Patient's daughter calling because since dosage change patient has been way more confused, daughter wondering if it should be once a day or twice a day. Thank you calling [facility]. You will receive a return call within 48 hours ( or 2 business days if close to the weekend). If you feel that this is an urgent issue and needs immediate attention, it is recommended that you contact your primary care provider office or proceed to your nearest Urgent Care Center of Emergency Room ED for evaluation/treatment. [facility] 01-03-2025 Instructions Sara Ramey APRN.ANALI - 01/03/2025 11:24 AM EDT Images from the original note were not included. Regarding your visit with Nurse Practitioner Sara Ramey today at the [facility] we discussed the following: Impression: [...] Recommendations: Schedule follow up with Epilepsy. Call [phone] Continue nathen Will review imaging with Staff [...] call if you have any questions Sara Ramey CNP [facility] [place] Nurse Practitioner [place], [place] [address] Office: [phone] Appointments: [phone] Stroke Signs and Symptoms: *Stroke is a [...] diet rich in fruits and vegetables (https://www.nhlbi.nih.gov/educati on/eukj-pcxdax-rjen) - Consider Mediterranean diet supplemented with nuts [...] of an exercise program by a health intensive care medicine specialist such as a physical therapist or cardiac [...] for their cardiovascular health Adapted from the [place] [employer]/[place] [employer]: 202 Guideline for the Prevention of Stroke in Patients With Stroke and Transient Ischemic Attack documented in this encounter [facility] 01-03-2025 History of Present illness Narrative Images from the original note were not included. [facility] Established Visit Consultation is requested by: Racheal De La Rosa [address] [facility] [address] PCP: Marie Devi [address] [place] [id number] CEREBROVASCULAR HISTORY Madiha Perales is a 79 year old female presenting for hospital discharge follow up. Admitted to [facility] 12/03-12/10/24. From discharge summary Patient at baseline [...] currently doing electrolyte jello -gets therapy at [facility] -she has fluctuating mental status and physical capabilities -in hospital was started on Keppra due to potential epileptogenicity on EEG -needs to see Epilepsy clinic -overall happy disposition -denies any side effects to keppra including drowsiness, dizziness, irritability -has only complained of one headache since discharge -taking gabapentin BID -no GCA on temporal artery biopsy -follows with a Neurologist at [facility] for Parkinsons PAST MEDICAL HISTORY Diagnosis Date [...] which included preparing to see the patient, [id number] patient care, completing clinical documentation, obtaining and/or reviewing separately obtained history, performing a medically appropriate examination, counseling and educating the patient/family/caregiver, communicating with other HCPs (not separately reported), independently interpreting results (not separately reported), communicating results to the patient/family/caregiver, and care coordination (not separately reported) SIGNATURE Sara Ramey APRN.MACHINE TECH CC Racheal De La Rosa [address] [facility] [address] Marie Devi [address] [facility] [address] [place] [address] documented in this encounter [facility] 01-03-2025 Note HNO ID: [id number] Author: SARA RAMEY APRN.CNP Service: ? Author Type: Nurse Practitioner Type: Progress Notes Filed: 01/12/2025 17:21 Note Text: [facility] Established Visit Consultation is requested by: Racheal De La Rosa [address] [facility] [address] PCP: Marie Devi [address] [place], [place] [id number] CEREBROVASCULAR HISTORY Madiha Perales is a 79 year old female presenting for hospital discharge follow up. Admitted to [facility] 12/03-12/10/24. From discharge summary Patient at baseline [...] currently doing electrolyte jello -gets therapy at [facility] -she has fluctuating mental status and physical capabilities -in hospital was started on Keppra due to potential epileptogenicity on EEG -needs to see Epilepsy clinic -overall happy disposition -denies any side effects to keppra including drowsiness, dizziness, irritability -has only complained of one headache since discharge -taking gabapentin BID -no GCA on temporal artery biopsy -follows with a Neurologist at [facility] for Parkinsons PAST MEDICAL HISTORY Diagnosis Date [...] Stroke Maternal Grandfather (more content not included)... [facility] 12-10-2024 Note HNO ID: [id number] Author: SHAW KINSEY MD Service: Hospital Medicine Author Type: Physician Type: Progress Notes Filed: 12/19/2024 08:38 Note Text: Documentation Query Please clarify the significance of the pathology report I agree with the pathology findings dated 12/09/2024 which confirms no arteritis This document will become part of the patient's medical record. [facility] 12-10-2024 Note HNO ID: [id number] Author: JENNIFER CHAUDHRY RN Service: Care Management Author Type: Registered Nurse Type: Care Mgt Progress Note Filed: 12/10/2024 13:32 Note Text: CARE MANAGEMENT DISCHARGE NOTE SERVICE DATE: December 10, 2024 SERVICE TIME: 1:29 PM Admission Date: 12/03/2024 LOS: 2 days Discharge Arrangement Discharge Arrangement: Residential Facility Was an expedited discharge program used?: No Services Arranged SNF Placement Provider Name: [facility] Caregiver Assessment Caregiver is ready, willing and able to meet the patient's needs as recommended by the inter-professional team: Yes Name of Caregiver: [facility] Transportation Arrangements Transportation Arrangements: Ambulance Transportation Agency and Phone #:: [facility] [phone] Date of Trip: 12/10/24 Time of Trip: 0560 Type of Service: BLS Non-emergency Is Patient Medicaid Pending?: No Was transportation financial coverage discussed with family?: Patient, Family Production Director Location: [facility] Destination: SNF Handoff Communication: Handoff to: Primary Care Physician Primary Care Physician Name/Phone: Dr Devi SOC sent Additional Information: Per MD patient has been cleared for dc today Patient will dc to [facility] SN[facility] under private pay skilled services at [...] 10, 2024 TIME: 1:29 PM [facility] 12-10-2024 Note HNO ID: [id number] Author: TORRIE CHOI MD Service: General Surgery Author Type: Physician Type: Plan of Care Filed: 12/10/2024 11:57 Note Text: Doing well - wound healing, no hematoma. OK for discharge. Will call with path results. No follow up needed. [facility] 12-09-2024 Note HNO ID: [id number] Author: GREG AGEE JR, MD Service: Neurology [...] of 0. Greg Agee MD [facility] 12-09-2024 Note HNO ID: [id number] Author: SHAW KINSEY MD Service: Hospital Medicine [...] cough (more content not included)... [facility] 12-08-2024 Note HNO ID: [id number] Author: SHAW KINSEY MD Service: Care Management [...] 08, 2024 TIME: 2:01 PM [facility] 12-08-2024 Note HNO ID: [id number] Author: SHAW KINSEY MD Service: Hospital Medicine [...] will (more content not included)... [facility] 12-08-2024 Note HNO ID: [id number] Author: LUCIUS DBUOSE PA-C Service: General Surgery Author Type: Physician Locum Tenens Type: Plan of Care Filed: 12/08/2024 09:23 Note Text: Patient on the OR schedule tomorrow with Dr. Choi for temporal artery biopsy. NPO after midnight for OR. SIGNATURE: Lucius Dubose PA-C PATIENT NAME: Madiha Perales DATE: December 08, 2024 TIME: 9:21 AM [facility] 12-08-2024 Note HNO ID: [id number] Author: JENNIFER CHAUDHRY RN Service: Care Management Author Type: Registered Nurse Type: Care Mgt Progress Note Filed: 12/08/2024 14:05 Note Text: CARE MANAGEMENT PROGRESS NOTE SERVICE DATE: 12/08/2024 SERVICE TIME: 8:21 AM LOS: 0 days Needs Prior to Discharge: Other: See Comment Per [facility] Per medical front desk specialist at [facility] offer a p2p for SNF pre-cert. P2P needs to be completed by 11:40am on 12/08. P2P phone # [phone] opt. 1 CM updated attending MD 10:30- Per MD P2P completed and upheld CM met with patient, spouse and daughter at bedside to provide update At this time they would like to private pay for SNF Requesting to ask [facility] and [facility] if they would accept private pay Referrals updated 14:00- CM met with family at bedside and provided update on private pay response from facilities [facility] will accept for SNF under private pay Family agreeable. CM spoke with membership coordinator Hanna number given for business department to discuss financial piece, CM provided to daughter Per Hanna she is unable to accept wkend DC Requesting [facility] Family requesting medical transport SIGNATURE: Jennifer Chaudhry RN PATIENT NAME: Madiha Perales DATE: December 08, 2024 TIME: 8:21 AM [facility] 12-07-2024 Note HNO ID: [id number] Author: SHAW KINSEY MD Service: Hospital Medicine [...] disease DATA: LABORATORY TESTS: CBC: Recent Labs 12/07/246 12/06/24 0758 12/05/24 0517 12/03/24 0803 WBC [...] *Leno (more content not included)... [facility] 12-07-2024 Note HNO ID: [id number] Author: LUCHO NELSON, RN Service: Care Management Author Type: Registered Nurse Type: Care Mgt Progress Note Filed: 12/07/2024 12:28 Note Text: CARE MANAGEMENT PROGRESS NOTE SERVICE DATE: 12/07/2024 SERVICE TIME: 12:27 PM LOS: 0 days Needs Prior to Discharge: Precertification, Discharge Transportation CT ordered for FRY. CM spoke to daughter Kalpana via phone. Confirmed [facility] is [facility] and accepting. Precert initiated. Will need dc transport. SIGNATURE: Lucho Nelson RN PATIENT NAME: Madiha Perales DATE: December 07, 2024 TIME: 12:27 PM [facility] 12-06-2024 Note HNO ID: [id number] Author: SHAW KINSEY MD Service: Hospital Medicine [...] evelyne (more content not included)... [facility] 12-06-2024 Note HNO ID: [id number] Author: JENNIFER CHAUDHRY, RN Service: Care Management Author Type: Registered [...] rec SNF Family agreeable with referral to [facility] Per family still reviewing for additional SNF choices 1553- CM met with patient and family [facility] still reviewing Family/patient requesting referrals to [address] [place] [address] CM to follow up with daughter Stevie (Kalpana) at [phone] with all SNF responses SIGNATURE: Jennifer Chaudhry RN PATIENT NAME: Madiha Perales DATE: December 06, 2024 TIME: 2:31 PM [facility] 12-05-2024 Note HNO ID: [id number] Author: SHAW KINSEY MD Service: Hospital Medicine [...] MD PATIENT NAME: Madiha Perales [facility] 12-05-2024 Note HNO ID: [id number] Author: CHARLETTE WITT RN Service: Care Management Author Type: Registered Nurse Type: Care Mgt Initial Assessment Filed: 12/05/2024 11:49 Note Text: CARE MANAGEMENT: ASSESSMENT AND DISCHARGE PLAN SERVICE DATE: December 05, 2024 SERVICE TIME: 09:59 am PCP: Marie Devi MD ([facility]) Primary Contact: Extended Emergency Contact Information Primary Emergency Contact: LucerosapnaStevie Relation: Daughter Secondary Emergency Contact: Marcos Perales Relation: Spouse Admission Status: Observation Insurance Provider: [employer] PPO Discharge Planning requested by: Per Department Practice Potential Transition Plans Residential Facility/Intermediate Care Facility, To Be Determined Advance Directives Current Advance Directive: Health Care Power of Annealer Helper, Living Will In Chart: No Occupational Therapy Asst Attempted to Assist with AD Completion: Yes [...] Be able to go home, Better mobility [place] of Choice Explained: [place] of Choice Given: Yes Level of Care Discussed: Residential Facility Are you interested in bedside delivery [...] assessment completed with spouse. Patient presented to [facility] ED c/o confusion. Patient admitted to Observation [...] 05, 2024 TIME: 11:44 AM [facility] 12-04-2024 Note HNO ID: [id number] Author: SHAW KINSEY MD Service: Hospital Medicine [...] MD PATIENT NAME: Madiha Perales [facility] 12-03-2024 Note SARS-COV-2 (AGENT OF COVID-19) RNA: Not detected INFLUENZA A RNA: Not detected INFLUENZA B RNA: Not detected RESPIRATORY SYNCYTIAL VIRUS (RSV) RNA: Not detected [facility] Comment on above: Performed By: #### [address] [id number] [facility]ATORY[facility] [id number] [place] [address] [facility] 10-10-2024 Evaluation + Plan note Associated Problem(s): Depression with anxiety Currently on Cymbalta, feels like she has a good dose. Has better days where parksinson's isn't as much an issue, but having more an more bad days. - Continue current dose, no changes. [facility] Work Phone: 10-10-2024 Miscellaneous Notes Associated Problem(s): Depression with anxiety Currently on Cymbalta, feels like she has a good dose. Has better days where parksinson's isn't as much an issue, but having more an more bad days. - Continue current dose, no changes. documented in this encounter [facility] Work Phone: 09-17-2024 History of Present illness Narrative Images from the original note were not included. FAMILY MEDICINE ANNUAL MEDICARE WELLNESS VISIT Madiha Perales [id number] 1945 PCP: Leonardo Santos DO Chief Complaint: Chief Complaint Patient presents with Medicare Annual Wellness Visit Subsequent Pt presents for annual MWV- ABN was given to pt and signed, pt verbalized understanding. SUBJECTIVE Madiha Perales is a 79 y.o. [place]ican-speaking female with pertinent PMHx of Parkinsons, who presents to the clinic for their annual medicare wellness visit. Patient is new to me as PCP, as Dr. Devi left the practice in June. Parkinson - Upted CL to 1.5mg TID -- that is highest - Leg to walk they aren't operating - No tremors - Doesn't - Went to [facility] in [place] - He usually goes to [facility] - Plan to do that Tues [...] 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[facility]) Nocturnal hypoxemia Obesity (BMI 30.0-34.9) MARCY [...] Resource Strain: Low Risk (10/17/2023) Received from [facility] Overall Financial Resource Strain (CARDIA) Difficulty of Paying Living Expenses: Not hard at all Food Insecurity: No Food Insecurity (10/17/2023) Received from [facility] Hunger Vital Sign Worried About Running Out of Food in the Last Year: Never true Ran Out of Food in the Last Year: Never true Transportation Needs: No Transportation Needs (11/27/2023) OASIS A1250: Transportation Lack of Transportation (Medical): No Lack of Transportation (Non-Medical): No Patient Unable or Declines to Respond: No Stress: Stress Concern Present (10/28/2023) Received from [facility] [place] [facility] - Occupational Stress Questionnaire Feeling of Stress : Rather much Social Connections: Feeling Socially Integrated (11/27/2023) OASIS D0700: Social Isolation Frequency of experiencing loneliness or isolation: Never Intimate Partner Violence: Patient Unable To Answer (10/15/2023) Received from [facility] Domestic Abuse Assessment Do you feel safe in your relationships at home?: Unable to assess Physical Abuse: Unable to assess Verbal Abuse: Unable to assess Housing Stability: Unknown (10/17/2023) Received from [facility] Housing Stability Vital Sign [...] provided personalized prevention plan. We discussed the [facility] Code Status and patient is: DNR Comfort Care Arrest at this time. Form can be found in media tab, patient has original with them. I recommended they hang the DNR form on the fridge or other place easy to see in their home or in their wallet. We discussed advanced care planning and end of life care. Patient provided blank copy of [facility] Advanced Directives packet, which includes HCPOA and Living Will Declaration. Patient's Advanced Directives are as follows: DNI/DNR Patient instructions with the written plan were provided to the patient. Advance Directives Discussion 16 - 20 minutes were spent discussing Advanced Care Planning (including a Living Will, Medical Power Of Annealer Helper, as well as specific end of life [...] part of this note was constructed with Punchbowl dictation software. Leonardo Santos DO, [facility] Office: 09/17/2024 10:15 PM documented in this encounter [facility] Work Phone: 08-10-2024 History of Present illness Narrative Hematology/Oncology Office Visit Oncology History: 1) stage 1A left breast cancer, invasive ductal carcinoma grade 3. ER+ NV+ HER2+. cT1b N0 M0; pT1c N0 M0, diagnosed 01/28/23. - Patient is a 78 yo F who presented with an abnormal screening mammogram of the upper outer quadrant of the left breast on 11/27/22. Diagnostic imaging and ultrasound were performed on 01/21/2023: a 0.9 x 0.9 x 1 cm irregular mass in the left breast. Biopsy was performed at [facility] on 01/28/2023 confirming grade 3 invasive ductal carcinoma ER positive 100%, NV positive 70% and HER2 positive at 3+. The patient underwent lumpectomy and sentinel node removal on 02/18/[address] Choi at [facility]: pathology revealed grade 3 invasive ductal carcinoma measuring 1.9 cm. There was focal DCIS and extensive lymphovascular invasion. Margins were negative for invasive and in situ component at greater than 2 mm. 6 axillary nodes were removed: 5 sentinel and 1 nonsentinel. All were negative. Pathologically staged T1CN0. - she was referred to [facility] for medical and radiation oncology. Her case [...] She had a bilateral screening mammogram at [facility] on 03/25/24 which was negative for [...] patient wears CPAP Parkinson disease (HCC) Stroke ([facility]) 2009 Torn meniscus Uterine cancer [...] tomosynthesis 1) stage 1A left breast cancer ER+/NV+/HER2+ pT1c pN0 cM0 s/p left partial mastectomy [...] DO Hematology/Medical Oncology documented in this encounter [facility] 08-02-2024 Telephone encounter Note Refill request received for anastrazole. Prescription pended. [facility] 08-02-2024 Miscellaneous Notes Refill request received for anastrazole. Prescription pended. documented in this encounter [facility] 03-16-2024 History of Present illness Narrative RADIATION ONCOLOGY FOLLOW UP PATIENT: Madiha Perales DATE OF SERVICE: 03/16/2024 : 1945 AGE: 79 y.o. PRIMARY SITE AND HISTOPATHOLOGY: Left breast, grade 3 invasive ductal carcinoma, ER positive, NV positive, HER2 positive. STAGE: cT1b N0 M0, [...] the left breast. Biopsy was performed at [facility] on 01/28/2023. This revealed grade 3 invasive ductal carcinoma measuring at least 8 mm in dimension. ER positive at 100%, NV positive at 70% and HER2 positive at [...] distance. She is undergoing physical therapy at [facility] physical therapy. She denies any breast issues. [...] apnea) The patient wears CPAP Parkinson disease ([facility]) Stroke ([facility]) 2009 Torn meniscus Uterine cancer [...] exam, patient counseling and care coordination. The [facility] Department of Radiation Oncology is an Accredited Facility of the [place] [employer] (ACR). This document was [...] provider for clarification. documented in this encounter [facility] 03-16-2024 Nurse Note The patient is here at [facility] with her for follow up with Dr. Diego. She arrived in a wheelchair. She uses a care or walker at times to ambulate around the house. She does physical therapy at [facility]. She denies pain at the current time. She denies skin issues at the previous site of radiation. Her appetite and sleeping are "good". Her energy level is fair. She is taking Arimidex as prescribed. She is scheduled for her next mammogram in March of 2024. She continues to follow up with Dr. Choi and Dr. Escobedo. [facility] 03-16-2024 Nurse Note The patient is here at [facility] with her for follow up with Dr. Diego. She arrived in a wheelchair. She uses a care or walker at times to ambulate around the house. She does physical therapy at [facility]. She denies pain at the current time. She denies skin issues at the previous site of radiation. Her appetite and sleeping are "good". Her energy level is fair. She is taking Arimidex as prescribed. She is scheduled for her next mammogram in March of 2024. She continues to follow up with Dr. Choi and Dr. Escobedo. documented in this encounter [facility] 02-19-2024 Note HNO ID: [id number] Author: OTRRIE CHOI MD Service: ? Author Type: Physician [...] breast in female, estrogen receptor positive (HCC) [facility] Oncology Notes under scanned Documents INTERVAL [...] for today's visit: none Torrie Choi MD [facility] 02-19-2024 History of Present illness [...] breast in female, estrogen receptor positive (HCC) [facility] Oncology Notes under scanned Documents INTERVAL [...] Torrie Choi MD documented in this encounter [facility] 02-18-2024 History of Present illness Narrative Subjective [...] or grammatical errors documented in this encounter [facility] Work Phone: 02-04-2024 Telephone encounter Note Voice message left for patient re order Advised to call office if further questions or concerns. Number provided to call. Encounter closed. [facility] 02-04-2024 Miscellaneous Notes Voice message left for patient re order Advised to call office if further questions or concerns. Number provided to call. Encounter closed. Orders signed. Order placed per patient's request for mammogram and/or breast ultrasound. Routed to provider/MD to approve. Dr. Grubbs's office called to ask when patient needed scheduled for her next mamogram documented in this encounter [facility] 02-04-2024 Telephone encounter Note Orders signed. [facility] Work Phone: 02-03-2024 Telephone encounter Note Order placed per patient's request for mammogram and/or breast ultrasound. Routed to provider/MD to approve. [facility] 02-03-[address] Grubbs's office called to ask when patient needed scheduled for her next mamogram [facility] 02-03-2024 Telephone encounter Note Refill for Arimidex pended to be signed if agreeable. [employer] 02-03-2024 Miscellaneous Notes Refill for Arimidex pended to be signed if agreeable. documented in this encounter [facility] 02-03-2024 History of Present illness Narrative Hematology/Oncology Office Visit Oncology History: 1) stage 1A left breast cancer, invasive ductal carcinoma grade 3. ER+ NV+ HER2+. cT1b N0 M0; pT1c N0 M0, diagnosed 01/28/23. - Patient is a 78 yo F who presented with an abnormal screening mammogram of the upper outer quadrant of the left breast on 11/27/22. Diagnostic imaging and ultrasound were performed on 01/21/2023: a 0.9 x 0.9 x 1 cm irregular mass in the left breast. Biopsy was performed at [facility] on 01/28/2023 confirming grade 3 invasive ductal carcinoma ER positive 100%, NV positive 70% and HER2 positive at 3+. The patient underwent lumpectomy and sentinel node removal on 02/18/[address] Choi at [facility]: pathology revealed grade 3 invasive ductal carcinoma measuring 1.9 cm. There was focal DCIS and extensive lymphovascular invasion. Margins were negative for invasive and in situ component at greater than 2 mm. 6 axillary nodes were removed: 5 sentinel and 1 nonsentinel. All were negative. Pathologically staged T1CN0. - she was referred to [facility] for medical and radiation oncology. Her case [...] back pain Breast calcifications on mammogram Dementia ([facility]) Depression Eczema H/O colonoscopy Hemorrhoid Hx of rosacea Lower extremity edema MARCY (obstructive sleep apnea) The patient wears CPAP Parkinson disease ([facility]) Stroke ([facility]) 2009 Torn meniscus Uterine cancer ([facility]) ([facility]) 2005 Past Surgical History: Procedure [...] left breast in female, estrogen receptor positive ([facility]) 03/18/2023 Edema of both lower [...] calcifications on mammogram 07/24/2013 Cerebrovascular accident (CVA) ([facility]) 06/23/2009 Social History Tobacco Use [...] (HCC) 1) stage 1A left breast cancer ER+/NV+/HER2+ pT1c pN0 cM0 s/p left partial mastectomy [...] up with Dr. Choi for mammograms at [facility]. Call placed to her office today [...] DO Hematology/Medical Oncology documented [facility] 11-11-[facility]23 History of Present illness Narrative [...] was improved enough [facility], where she got [facility], OT, speech [...] or grammatical errors documented in this encounter [facility] Work Phone: 11-04-2023 History of Present illness Narrative Hematology/Oncology Office Visit Oncology History: 1) stage 1A left breast cancer, invasive ductal carcinoma grade 3. ER+ NV+ HER2+. cT1b N0 M0; pT1c N0 M0, diagnosed 01/28/23. - Patient is a 78 yo F who presented with an abnormal screening mammogram of the upper outer quadrant of the left breast on 11/27/22. Diagnostic imaging and ultrasound were performed on 01/21/2023: a 0.9 x 0.9 x 1 cm irregular mass in the left breast. Biopsy was performed at [facility] on 01/28/2023 confirming grade 3 invasive ductal carcinoma ER positive 100%, NV positive 70% and HER2 positive at 3+. The patient underwent lumpectomy and sentinel node removal on 02/18/[address] Choi at [facility]: pathology revealed grade 3 invasive ductal carcinoma measuring 1.9 cm. There was focal DCIS and extensive lymphovascular invasion. Margins were negative for invasive and in situ component at greater than 2 mm. 6 axillary nodes were removed: 5 sentinel and 1 nonsentinel. All were negative. Pathologically staged T1CN0. - she was referred to [facility] for medical and radiation oncology. Her case [...] apnea) The patient wears CPAP Parkinson disease ([facility]) Stroke ([facility]) 2009 Torn meniscus Uterine cancer ([facility]/HCC) (HCC) 2005 Past Surgical History: Procedure [...] calcifications on mammogram 07/24/2013 Cerebrovascular accident (CVA) ([facility]) 06/23/2009 Social History Tobacco Use [...] (HCC) 1) stage 1A left breast cancer ER+/NV+/HER2+ pT1c pN0 cM0 s/p left partial mastectomy [...] up with Dr. Choi for mammograms at [facility] - signs and symptoms of breast [...] DO Hematology/Medical Oncology documented in this encounter [facility] 10-06-2023 Telephone encounter Note Follow up call made to pt., no answer - LMOM. Will continue to monitor and follow. Lisa Watters MPA, RDN LD CDCES [facility] 10-06-2023 Miscellaneous Notes Follow up call made to pt., no answer - LMOM. Will continue to monitor and follow. Lisa Watters MPA, RDN LD CDCES documented in this encounter [facility] 09-23-2023 History of Present illness Narrative [...] prior to discharge. documented in this encounter [facility] 09-12-2023 History of Present illness Narrative RADIATION ONCOLOGY FOLLOW UP PATIENT: Madiha Perales DATE OF SERVICE: 09/12/2023 : 1945 AGE: 78 y.o. PRIMARY SITE AND HISTOPATHOLOGY: Left breast, grade 3 invasive ductal carcinoma, ER positive, NV positive, HER2 positive. STAGE: cT1b N0 M0, [...] the left breast. Biopsy was performed at [facility] on 01/28/2023. This revealed grade 3 invasive ductal carcinoma measuring at least 8 mm in dimension. ER positive at 100%, NV positive at 70% and HER2 positive at [...] back pain Breast calcifications on mammogram Dementia ([facility]) Depression Eczema H/O colonoscopy Hemorrhoid Hx of rosacea Lower extremity edema MARCY (obstructive sleep apnea) The patient wears CPAP Parkinson disease Stroke ([facility]) 2009 Torn meniscus Uterine cancer ([facility]/HCC) ([facility]) 2005 PAST SURGICAL HISTORY: Past [...] in 6 months. Vicki Diego MD [facility] Department of Radiation Oncology is an Accredited Facility of the [employer] (ACR). This document was [...] provider for clarification. documented in this encounter [facility] 09-12-2023 Nurse Note Here with using walker for follow up.Appetite good states she just doesn't drink enough water. Energy normal for her rests frequently. States skin is doing well and continues to moisturize with aloe and coconut oil. Recent bone density test done. Has echo coming up and continues on Trazimera every 3 weeks. [facility] 09-12-2023 Nurse Note Here with using walker for follow up.Appetite good states she just doesn't drink enough water. Energy normal for her rests frequently. States skin is doing well and continues to moisturize with aloe and coconut oil. Recent bone density test done. Has echo coming up and continues on Trazimera every 3 weeks. documented in this encounter [facility] 09-02-2023 History of Present illness Narrative [...] ambulatory upon discharge. documented in this encounter [facility] 09-02-2023 History of Present illness Narrative [...] ambulatory upon discharge. documented in this encounter [facility] 03-12-2024 History of Present illness Narrative Hematology/Oncology Office Visit Oncology History: 1) stage 1A left breast cancer, invasive ductal carcinoma grade 3. ER+ NV+ HER2+. cT1b N0 M0; pT1c N0 M0, diagnosed 01/28/23. - Patient is a 78 yo F who presented with an abnormal screening mammogram of the upper outer quadrant of the left breast on 11/27/22. Diagnostic imaging and ultrasound were performed on 01/21/2023: a 0.9 x 0.9 x 1 cm irregular mass in the left breast. Biopsy was performed at [facility] on 01/28/2023 confirming grade 3 invasive ductal carcinoma ER positive 100%, NV positive 70% and HER2 positive at 3+. The patient underwent lumpectomy and sentinel node removal on 02/18/[address] Choi at [facility]: pathology revealed grade 3 invasive ductal carcinoma measuring 1.9 cm. There was focal DCIS and extensive lymphovascular invasion. Margins were negative for invasive and in situ component at greater than 2 mm. 6 axillary nodes were removed: 5 sentinel and 1 nonsentinel. All were negative. Pathologically staged T1CN0. - she was referred to [facility] for medical and radiation oncology. Her case [...] back pain Breast calcifications on mammogram Dementia ([facility]) Depression Eczema H/O colonoscopy Hemorrhoid Hx of rosacea Lower extremity edema MARCY (obstructive sleep apnea) The patient wears CPAP Parkinson disease Stroke ([facility]) 2009 Torn meniscus Uterine cancer (CMS/HCC) ([facility]) 2005 Past Surgical History: Procedure [...] left breast in female, estrogen receptor positive ([facility]) ([facility]) 03/18/2023 Edema of both lower [...] calcifications on mammogram 07/24/2013 Cerebrovascular accident (CVA) ([facility]) 06/23/2009 Social History Tobacco Use [...] /CT chest INDICATION: Breast carcinoma. Technique: Large [id number] 3 mm axial sections were obtained through [...] therapy 1) stage 1A left breast cancer ER+/NV+/HER2+ pT1c pN0 cM0 s/p left partial mastectomy [...] DO Hematology/Medical Oncology documented in this encounter [facility] 08-12-2023 History of Present illness Narrative Patient arrived for delayed cycle 4 Q 3 week Trazimera. Patient still has cough on ATB. Reports feels well. Encouraged to call PCP to follow up with cough. PIV inserted, blood for CBC and CMP obtained. Infusion complete. PIV d/c'd angio cath intact. Patient ambulatory upon discharge. documented in this encounter [facility] 08-12-2023 History of Present illness Narrative Patient arrived for delayed cycle 4 Q 3 week Trazimera. Patient still has cough on ATB. Reports feels well. Encouraged to call PCP to follow up with cough. PIV inserted, blood for CBC and CMP obtained. Infusion complete. PIV d/c'd angio cath intact. Patient ambulatory upon discharge. documented in this encounter [facility] 08-05-2023 History of Present illness Narrative [...] seen by PCP. documented in this encounter [facility] 07-30-2023 History of Present illness Narrative [...] or grammatical errorspending documented in this encounter [facility] Work Phone: 07-29-2023 Telephone encounter Note ECHO for August pended to be signed [facility] 07-29-2023 Miscellaneous Notes ECHO for August pended to be signed documented in this encounter [facility] 07-15-2023 History of Present illness Narrative [...] assist to exit. documented in this encounter [facility] 07-15-2023 History of Present illness Narrative [...] assist to exit. documented in this encounter [facility] 07-15-2023 History of Present illness Narrative Hematology/Oncology Office Visit Oncology History: 1) stage 1A left breast cancer, invasive ductal carcinoma grade 3. ER+ NV+ HER2+. cT1b N0 M0; pT1c N0 M0, diagnosed 01/28/23. - Patient is a 78 yo F who presented with an abnormal screening mammogram of the upper outer quadrant of the left breast on 11/27/22. Diagnostic imaging and ultrasound were performed on 01/21/2023: a 0.9 x 0.9 x 1 cm irregular mass in the left breast. Biopsy was performed at [facility] on 01/28/2023 confirming grade 3 invasive ductal carcinoma ER positive 100%, NV positive 70% and HER2 positive at 3+. The patient underwent lumpectomy and sentinel node removal on 02/18/[address] Choi at [facility]: pathology revealed grade 3 invasive ductal carcinoma measuring 1.9 cm. There was focal DCIS and extensive lymphovascular invasion. Margins were negative for invasive and in situ component at greater than 2 mm. 6 axillary nodes were removed: 5 sentinel and 1 nonsentinel. All were negative. Pathologically staged T1CN0. - she was referred to [facility] for medical and radiation oncology. Her case [...] back pain Breast calcifications on mammogram Dementia ([facility]) Depression Eczema H/O colonoscopy Hemorrhoid Hx of rosacea Lower extremity edema MARCY (obstructive sleep apnea) The patient wears CPAP Parkinson disease Stroke ([facility]) 2009 Torn meniscus Uterine cancer ([facility]/HCC) (HCC) 2005 Past Surgical History: Procedure [...] in female, estrogen receptor positive (HCC) (HCC) 03/18/2023 Edema of both lower extremities [...] calcifications on mammogram 07/24/2013 Cerebrovascular accident (CVA) ([facility]) 06/23/2009 Social History Tobacco Use [...] /CT chest INDICATION: Breast carcinoma. Technique: Large nvpbo-[id number] 3 mm axial sections were obtained through [...] (HCC) 1) stage 1A left breast cancer ER+/NV+/HER2+ pT1c pN0 cM0 s/p left partial mastectomy [...] DO Hematology/Medical Oncology documented in this encounter [facility] 07-14-2023 Telephone encounter Note Reached out to patient's daughter on this date by phone to check-in, assess needs, and offer support. Left voicemail requesting return call. [facility] 07-14-2023 Miscellaneous Notes Reached out to patient's daughter on this date by phone to check-in, assess needs, and offer support. Left voicemail requesting return call. documented in this encounter [facility] 07-03-2023 History of Present illness Narrative RADIATION ONCOLOGY FOLLOW UP PATIENT: Madiha Perales DATE OF SERVICE: 07/03/2023 : 1945 AGE: 78 y.o. PRIMARY SITE AND HISTOPATHOLOGY: Left breast, grade 3 invasive ductal carcinoma, ER positive, NV positive, HER2 positive. STAGE: cT1b N0 M0, [...] the left breast. Biopsy was performed at [facility] on 01/28/2023. This revealed grade 3 invasive ductal carcinoma measuring at least 8 mm in dimension. ER positive at 100%, NV positive at 70% and HER2 positive at [...] effects. She required admission to [facility] on 06/05/2023 through 06/08/2023 for symptom [...] The patient wears CPAP Parkinson disease Stroke ([facility]) 2009 Torn meniscus Uterine cancer [...] weeks of therapy. Vicki Diego MD [facility] Department of Radiation Oncology is an Accredited Facility of the [employer] (ACR). Total time: 35 [...] provider for clarification. documented in this encounter [facility] 07-03-2023 Nurse Note The patient is here at [facility] with her and daughter for follow up with Dr. Diego. She denies pain at the current time. She states her appetite and sleeping are WNL. He states she has low energy. She is on Trastuzumab every 3 weeks under the care of Dr. Escobedo. [facility] 07-03-2023 Nurse Note The patient signed consent and the RN signed as a witness. The RN gave and reviewed skin care teaching with the patient. The patient verbalized understanding. [facility] 07-03-2023 Nurse Note The patient is here at [facility] with her and daughter for follow up [...] patient verbalized understanding. documented in this encounter [facility] 06-26-2023 History of Present illness Narrative Subjective Patient ID: Madiha Perales is a 78 y.o. female who presents for Hospital Follow-up (Was at [facility] was not responsive could not even stand, [...] or grammatical errors documented in this encounter [facility] Work Phone: 06-24-2023 History of Present illness Narrative Hematology/Oncology Office Visit Oncology History: 1) stage 1A left breast cancer, invasive ductal carcinoma grade 3. ER+ NV+ HER2+. cT1b N0 M0; pT1c N0 M0, diagnosed 01/28/23. - Patient is a 78 yo F who presented with an abnormal screening mammogram of the upper outer quadrant of the left breast on 11/27/22. Diagnostic imaging and ultrasound were performed on 01/21/2023: a 0.9 x 0.9 x 1 cm irregular mass in the left breast. Biopsy was performed at [facility] on 01/28/2023 confirming grade 3 invasive ductal carcinoma ER positive 100%, NV positive 70% and HER2 positive at 3+. The patient underwent lumpectomy and sentinel node removal on 02/18/[address] Choi at [facility]: pathology revealed grade 3 invasive ductal carcinoma measuring 1.9 cm. There was focal DCIS and extensive lymphovascular invasion. Margins were negative for invasive and in situ component at greater than 2 mm. 6 axillary nodes were removed: 5 sentinel and 1 nonsentinel. All were negative. Pathologically staged T1CN0. - she was referred to [facility] for medical and radiation oncology. Her [...] calcifications on mammogram 07/24/2013 Cerebrovascular accident (CVA) ([facility]) 06/23/2009 Social History Tobacco Use [...] (HCC) 1) stage 1A left breast cancer ER+/NV+/HER2+ pT1c pN0 cM0 s/p left partial mastectomy [...] DO Hematology/Medical Oncology documented in this encounter [facility] 06-24-2023 History of Present illness Narrative [...] ambulatory upon discharge. documented in this encounter [facility] 06-24-2023 History of Present illness Narrative [...] ambulatory upon discharge. documented in this encounter [facility] 06-13-2023 History of Present illness Narrative Arrival Note Infusion Patient is here for hydration Labs were not ordered. 1013 Infusion completed and flushed with NS. No IV related complications. No s/sx rx, pt voices no c/o. Pt verbalizes understanding of s/sx adverse reaction or complication to report to MD office when at home. documented in this encounter [facility] 06-13-2023 Telephone encounter Note Patient accepted and confirmed home health start of care (SOC) for 06/12/23. Visit time established. [facility] Work Phone: 06-13-2023 Miscellaneous Notes Patient accepted and confirmed home health start of care (SOC) for 06/12/23. Visit time established. documented in this encounter [facility] 06-12-2023 Telephone encounter Note Received return message [...] and will reach out if needs/questions arise. [facility] 06-12-2023 Miscellaneous Notes Received return message [...] if needs/questions arise. documented in this encounter [facility] 06-12-2023 Telephone encounter Note Reached out to patent's daughter/Wesley on this date via phone to check-in and offer support. No answer. Left voicemail requesting return call. [facility] 06-12-2023 Miscellaneous Notes Reached out to patent's daughter/Wesley on this date via phone to check-in and offer support. No answer. Left voicemail requesting return call. documented in this encounter [facility] 06-11-2023 Telephone encounter Note Follow up phone call made to pt's daughter - no answer. LMOM for pt. To return call. Continue to monitor. Lisa Watters MPA, ALFREDO PERERA CDCES [facility] 06-11-2023 Miscellaneous Notes Follow up phone call made to pt's daughter - no answer. LMOM for pt. To return call. Continue to monitor. Lisa Watters MPA, RDN LD CDCES documented in this encounter [facility] 06-09-2023 Miscellaneous Notes Standing lab orders to be drawn prior to oncology infusions are pended. documented in this encounter [facility] 06-09-2023 Telephone encounter Note Standing lab orders to be drawn prior to oncology infusions are pended. [facility] 06-04-2023 Telephone encounter Note Received a [...] for patient. This worker provided education on [facility] Agency on Aging services and supports. Also provided education on [facility] Office for Older Adults. Wesley states the family has an agency they have gone through to get assistance for other family members that they may look into using again. This worker e-mailed Wesley a list of private pay home health agencies to [email or web address]. This worker also made a referral to [facility] for Older Adults home delivered meal program on patient's behalf. Spoke with Suzanne at [facility] and she said she will contact Wesley regarding their meal program. Wesley has this worker's contact information in case additional needs arise. This worker will continue to follow-up. [facility] 06-04-2023 Miscellaneous Notes Received a return [...] for patient. This worker provided education on [facility] on Aging services and supports. Also provided education on [facility] for Older Adults. Wesley states the family has an agency they have gone through to get assistance for other family members that they may look into using again. This worker e-mailed Wesley a list of private pay home health agencies to [employer]. This worker also made a referral to [facility] home delivered meal program on patient's behalf. Spoke with Suzanne at [facility] and she said she will contact Wesley regarding their meal program. Wesley has this worker's contact information in case additional needs arise. This worker will continue to follow-up. documented in this encounter [facility] 06-03-2023 Telephone encounter Note Received referral from Cathy Quiñones RN to connect with patient's family regarding options for increased help at home. Reached out to patient's daughter/Wesley on this date via phone. No answer. Left voicemail requesting return call. [facility] 06-03-2023 Miscellaneous Notes Received referral from Cathy Quiñones RN to connect with patient's family regarding options for increased help at home. Reached out to patient's daughter/Wesley on this date via phone. No answer. Left voicemail requesting return call. documented in this encounter [facility] 06-03-2023 Telephone encounter Note Venous duplex pended to be signed [facility] 06-03-2023 Miscellaneous Notes Venous duplex pended to be signed documented in this encounter [facility] 06-03-2023 History of Present illness Narrative Hematology/Oncology Office Visit Oncology History: 1) stage 1A left breast cancer, invasive ductal carcinoma grade 3. ER+ NV+ HER2+. cT1b N0 M0; pT1c N0 M0, diagnosed 01/28/23. - Patient is a 78 yo F who presented with an abnormal screening mammogram of the upper outer quadrant of the left breast on 11/27/22. Diagnostic imaging and ultrasound were performed on 01/21/2023: a 0.9 x 0.9 x 1 cm irregular mass in the left breast. Biopsy was performed at [facility] on 01/28/2023 confirming grade 3 invasive ductal carcinoma ER positive 100%, NV positive 70% and HER2 positive at 3+. The patient underwent lumpectomy and sentinel node removal on 02/18/[address] Choi at [facility]: pathology revealed grade 3 invasive ductal [...] back pain Breast calcifications on mammogram Dementia ([facility]) Depression Eczema H/O colonoscopy Hemorrhoid Hx of rosacea Lower extremity edema MARCY (obstructive sleep apnea) The patient wears CPAP Parkinson disease Stroke ([facility]) 2009 Torn meniscus Uterine cancer [...] calcifications on mammogram 07/24/2013 Cerebrovascular accident (CVA) ([facility]) 06/23/2009 Social History Tobacco Use [...] % infusion 500 mL/hr IntraVENous Continuous Stevie Escobedo, 500 mL/hr at 06/03/23 1236 500 mL/hr [...] therapy 1) stage 1A left breast cancer ER+/NV+/HER2+ pT1c pN0 cM0 s/p left partial mastectomy [...] DO Hematology/Medical Oncology documented in this encounter [facility] 06-03-2023 History of Present illness Narrative Patient arrives as full 2 RN assist from vehicle to . Patient reporting symptoms as patient appears more [...] at this time. Staff message sent to [employer] and lithopone mill worker for additional resources and possible in [...] for venous duplex. documented in this encounter [facility] [employer] 05-27-2023 History of Present illness Narrative Patient [...] at this time. documented in this encounter [facility] [employer] 05-27-2023 Telephone encounter Note At check-in patient stated that insurance will remain the same in the upcoming year. [employer] 05.27.23 ES [facility] 05-27-2023 Miscellaneous Notes At check-in patient stated that insurance will remain the same in the upcoming year. [employer] 05.27.23 ES documented in this encounter [facility] 05-23-2023 History of Present illness Narrative [...] at this time documented in this encounter [facility] 05-20-2023 History of Present illness Narrative Hematology/Oncology Office Visit Oncology History: 1) stage 1A left breast cancer, invasive ductal carcinoma grade 3. ER+ NV+ HER2+. cT1b N0 M0; pT1c N0 M0, diagnosed 01/28/23. - Patient is a 78 yo F who presented with an abnormal screening mammogram of the upper outer quadrant of the left breast on 11/27/22. Diagnostic imaging and ultrasound were performed on 01/21/2023: a 0.9 x 0.9 x 1 cm irregular mass in the left breast. Biopsy was performed at [facility] on 01/28/2023 confirming grade 3 invasive ductal carcinoma ER positive 100%, NV positive 70% and HER2 positive at 3+. The patient underwent lumpectomy and sentinel node removal on 02/18/[address] Choi at [facility]: pathology revealed grade 3 invasive ductal carcinoma measuring 1.9 cm. There was focal DCIS and extensive lymphovascular invasion. Margins were negative for invasive and in situ component at greater than 2 mm. 6 axillary nodes were removed: 5 sentinel and 1 nonsentinel. All were negative. Pathologically staged T1CN0. - she was referred to [facility] for medical and radiation oncology. Her case [...] The patient wears CPAP Parkinson disease Stroke ([facility]) 2009 Torn meniscus Uterine cancer ([facility]/HCC) (HCC) 2005 Past Surgical History: Procedure [...] calcifications on mammogram 07/24/2013 Cerebrovascular accident (CVA) ([facility]) 06/23/2009 Social History Tobacco Use [...] (HCC) 1) stage 1A left breast cancer ER+/NV+/HER2+ pT1c pN0 cM0 s/p left partial mastectomy [...] DO Hematology/Medical Oncology documented in this encounter [facility] 05-20-2023 History of Present illness Narrative [...] ambulatory upon discharge. documented in this encounter [facility] 05-13-2023 History of Present illness Narrative [...] ambulatory upon discharge. documented in this [facility] 05-12-2023 Telephone encounter Note ECHO for Jun 2023 pended to be signed [facility] 05-12-2023 Miscellaneous Notes ECHO for Jun 2023 pended to be signed documented in this encounter [facility] 05-06-2023 History of Present illness Narrative Hematology/Oncology Office Visit Oncology History: 1) stage 1A left breast cancer, invasive ductal carcinoma grade 3. ER+ NV+ HER2+. cT1b N0 M0; pT1c N0 M0, diagnosed 01/28/23. - Patient is a 78 yo F who presented with an abnormal screening mammogram of the upper outer quadrant of the left breast on 11/27/22. Diagnostic imaging and ultrasound were performed on 01/21/2023: a 0.9 x 0.9 x 1 cm irregular mass in the left breast. Biopsy was performed at [facility] on 01/28/2023 confirming grade 3 invasive ductal carcinoma ER positive 100%, NV positive 70% and HER2 positive at 3+. The patient underwent lumpectomy and sentinel node removal on 02/18/[address] Choi at [facility]: pathology revealed grade 3 invasive ductal carcinoma measuring 1.9 cm. There was focal DCIS and extensive lymphovascular invasion. Margins were negative for invasive and in situ component at greater than 2 mm. 6 axillary nodes were removed: 5 sentinel and 1 nonsentinel. All were negative. Pathologically staged T1CN0. - she was referred to [facility] for medical and radiation oncology. Her case [...] The patient wears CPAP Parkinson disease Stroke ([facility]) 2009 Torn meniscus Uterine cancer ([facility]/HCC) (HCC) 2005 Past Surgical History: Procedure [...] calcifications on mammogram 07/24/2013 Cerebrovascular accident (CVA) ([facility]) 06/23/2009 Social History Tobacco Use [...] (HCC) 1) stage 1A left breast cancer ER+/NV+/HER2+ pT1c pN0 cM0 s/p left partial mastectomy [...] DO Hematology/Medical Oncology documented in this encounter [facility] 05-06-2023 History of Present illness Narrative [...] of next appt. documented in this encounter [facility] 04-29-2023 History of Present illness Narrative [...] provided to patient. documented in this encounter [facility] 04-22-2023 History of Present illness Narrative Hematology/Oncology Office Visit Oncology History: 1) stage 1A left breast cancer, invasive ductal carcinoma grade 3. ER+ NV+ HER2+. cT1b N0 M0; pT1c N0 M0, diagnosed 01/28/23. - Patient is a 78 yo F who presented with an abnormal screening mammogram of the upper outer quadrant of the left breast on 11/27/22. Diagnostic imaging and ultrasound were performed on 01/21/2023: a 0.9 x 0.9 x 1 cm irregular mass in the left breast. Biopsy was performed at [facility] on 01/28/2023 confirming grade 3 invasive ductal carcinoma ER positive 100%, NV positive 70% and HER2 positive at 3+. The patient underwent lumpectomy and sentinel node removal on 02/18/[address] Choi at [facility]: pathology revealed grade 3 invasive ductal carcinoma measuring 1.9 cm. There was focal DCIS and extensive lymphovascular invasion. Margins were negative for invasive and in situ component at greater than 2 mm. 6 axillary nodes were removed: 5 sentinel and 1 nonsentinel. All were negative. Pathologically staged T1CN0. - she was referred to [facility] for medical and radiation oncology. Her case [...] The patient wears CPAP Parkinson disease Stroke ([facility]) 2009 Torn meniscus Uterine cancer ([facility]/HCC) (HCC) 2005 Past Surgical History: Procedure [...] calcifications on mammogram 07/24/2013 Cerebrovascular accident (CVA) ([facility]) 06/23/2009 Social History Tobacco Use [...] (HCC) 1) stage 1A left breast cancer ER+/NV+/HER2+ pT1c pN0 cM0 s/p left partial mastectomy [...] DO Hematology/Medical Oncology documented in this encounter [facility] 04-22-2023 History of Present illness Narrative [...] ambulatory upon discharge. documented in this encounter [facility] 04-08-2023 History of Present illness Narrative Hematology/Oncology Office Visit Oncology History: 1) stage 1A left breast cancer, invasive ductal carcinoma grade 3. ER+ NV+ HER2+. cT1b N0 M0; pT1c N0 M0, diagnosed 01/28/23. - Patient is a 78 yo F who presented with an abnormal screening mammogram of the upper outer quadrant of the left breast on 11/27/22. Diagnostic imaging and ultrasound were performed on 01/21/2023: a 0.9 x 0.9 x 1 cm irregular mass in the left breast. Biopsy was performed at [facility] on 01/28/2023 confirming grade 3 invasive ductal carcinoma ER positive 100%, NV positive 70% and HER2 positive at 3+. The patient underwent lumpectomy and sentinel node removal on 02/18/[address] Choi at [facility]: pathology revealed grade 3 invasive ductal carcinoma measuring 1.9 cm. There was focal DCIS and extensive lymphovascular invasion. Margins were negative for invasive and in situ component at greater than 2 mm. 6 axillary nodes were removed: 5 sentinel and 1 nonsentinel. All were negative. Pathologically staged T1CN0. - she was referred to [facility] for medical and radiation oncology. Her case [...] back pain Breast calcifications on mammogram Dementia ([facility]) Depression Eczema H/O colonoscopy Hemorrhoid Hx of rosacea Lower extremity edema MARCY (obstructive sleep apnea) The patient wears CPAP Parkinson disease Stroke ([facility]) 2009 Torn meniscus Uterine cancer ([facility]/HCC) ([facility]) 2005 Past Surgical History: Procedure [...] left breast in female, estrogen receptor positive ([facility]) 03/18/2023 Edema of both lower [...] calcifications on mammogram 07/24/2013 Cerebrovascular accident (CVA) ([facility]) 06/23/2009 Social History Tobacco Use [...] Case Report 03/14/2023 Final Value:Surgical Pathology Case: [id number] Authorizing Provider: Vicki Diego MD Collected: 03/14/2023 1008 Ordering Location: [facility] Laboratory Received: 03/14/2023 0812 Pathologist: Fozia Ponce [...] be displayed here. Pathologist Interpretation Location 03[facility]14/2023 [facility], [address] [place] [address], [place] [address], CLIA: [id number]; Joint Commission: [id number]; CAP: [id number] Final Imaging Reviewed: as per HPI - I have reviewed all available pertinent laboratory, imaging and pathology results with the patient and/or family members today. Assessment/Plan: Diagnosis Plan 1. Malignant neoplasm of upper-outer quadrant of left breast in female, estrogen receptor positive (HCC) 1) stage 1A left breast cancer ER+/NV+/HER2+ pT1c pN0 cM0 s/p left partial mastectomy [...] DO Hematology/Medical Oncology documented in this encounter [facility] [employer] 04-08-2023 History of Present illness Narrative Patient [...] of next appt. documented in this encounter [facility] 04-08-2023 History of Present illness Narrative [...] of next appt. documented in this encounter [facility] 04-01-2023 History of Present illness Narrative [...] ambulatory upon discharge. documented in this encounter [facility] 03-31-2023 History of Present illness Narrative Chemotherapy teaching completed with patient and , daughter, [id number], and son for Paclitaxel, and Trazimera. Written [...] access: PIV. Patient will get treatment in [place]. Reviewed role of multidisciplinary team: social work, slot machine repairer, financial legal assistant. Patient agreeable to proceed with treatment and signed consent form. Copy of consent form given to patient. Advised patient of appointment information and treatment calendar given. documented in this encounter [facility] 03-24-2023 Telephone encounter Note Standing orders for pre chemo labs are pended. Prescriptions for antiemetics and decadron prep prior to first treatment are pended. [facility] 03-24-2023 Miscellaneous Notes Standing orders for pre chemo labs are pended. Prescriptions for antiemetics and decadron prep prior to first treatment are pended. documented in this encounter [facility] 03-18-2023 History of Present illness Narrative New Patient Hematology/Oncology Office Visit Consultation/Referral Reason: breast cancer Referred by: Dr. Diego Oncology History: 1) stage 1A left breast cancer, invasive ductal carcinoma grade 3. ER+ NV+ HER2+. cT1b N0 M0; pT1c N0 M0, diagnosed 01/28/23. - Patient is a 78 yo F who presented with an abnormal screening mammogram of the upper outer quadrant of the left breast on 11/27/22. Diagnostic imaging and ultrasound were performed on 01/21/2023: a 0.9 x 0.9 x 1 cm irregular mass in the left breast. Biopsy was performed at [facility] on 01/28/2023 confirming grade 3 invasive ductal carcinoma ER positive 100%, NV positive 70% and HER2 positive at 3+. The patient underwent lumpectomy and sentinel node removal on 02/18/[address] Choi at [facility]: pathology revealed grade 3 invasive ductal carcinoma measuring 1.9 cm. There was focal DCIS and extensive lymphovascular invasion. Margins were negative for invasive and in situ component at greater than 2 mm. 6 axillary nodes were removed: 5 sentinel and 1 nonsentinel. All were negative. Pathologically staged T1CN0. - she was referred to [facility] for medical and radiation oncology. Her case [...] calcifications on mammogram 07/24/2013 Cerebrovascular accident (CVA) ([facility]) 06/23/2009 Social History Tobacco Use [...] Case Report 03/14/2023 Final Value:Surgical Pathology Case: [id number] Authorizing Provider: Vicki Diego MD Collected: 03/14/2023 1008 Ordering Location: [facility] Laboratory Received: 03/14/2023 0812 Pathologist: Fozia Ponce [...] be displayed here. Pathologist Interpretation Location 03/14/2023 [facility], [address] [place], [place] [id number], CLIA: [id number]; Joint Commission: [id number]; CAP: [id number] Final Imaging Reviewed: as per HPI - [...] PRN 1) stage 1A left breast cancer ER+/NV+/HER2+ pT1c pN0 cM0 s/p left partial mastectomy [...] DO Hematology/Medical Oncology documented in this encounter [facility] 03-06-2023 Consult note Formatting of th is note is different from the original. RADIATION ONCOLOGY INITIAL CONSULTATION PATIENT: Madiha Perales DATE OF SERVICE: 03/06/23 : 1945 AGE: 78 y.o. PRIMARY SITE AND HISTOPATHOLOGY: Left breast, grade 3 invasive ductal carcinoma, ER positive, NV positive, HER2 positive. STAGE: cT1b N0 M0, [...] the left breast. Biopsy was performed at [facility] on 01/28/2023. This revealed grade 3 invasive ductal carcinoma measuring at least 8 mm in dimension. ER positive at 100%, NV positive at 70% and HER2 positive at [...] patient wears CPAP Parkinson disease (HCC) Stroke ([facility]) 2009 Torn meniscus Uterine cancer [...] the first planning session is at the [facility] and the rest of the appointments would be at the [facility]. We thank you for the consultation. Vicki Diego MD [facility] [place] Department of Radiation Oncology is an Accredited Facility of the [employer] (ACR). Total time: 65 [...] directly addressed to the provider for clarification. [facility] 03-06-2023 Consult note Formatting of th is note is different from the original. RADIATION ONCOLOGY INITIAL CONSULTATION PATIENT: Madiha Perales DATE OF SERVICE: 03/06/23 : 1945 AGE: 78 y.o. PRIMARY SITE AND HISTOPATHOLOGY: Left breast, grade 3 invasive ductal carcinoma, ER positive, NV positive, HER2 positive. STAGE: cT1b N0 M0, [...] the left breast. Biopsy was performed at [facility] on 01/28/2023. This revealed grade 3 invasive ductal carcinoma measuring at least 8 mm in dimension. ER positive at 100%, NV positive at 70% and HER2 positive at [...] back pain Breast calcifications on mammogram Dementia ([facility]) Depression Eczema H/O colonoscopy Hemorrhoid Hx of rosacea Lower extremity edema MARCY (obstructive sleep apnea) The patient wears CPAP Parkinson disease ([facility]) Stroke ([facility]) 2009 Torn meniscus Uterine cancer ([facility]) ([facility]) 2005 PAST SURGICAL HISTORY: Past [...] the first planning session is at the [facility] and the rest of the appointments would be at the [facility]. We thank you for the consultation. Vicki Diego MD [facility] Department of Radiation Oncology is an Accredited Facility of the [employer] (ACR). Total time: 65 [...] provider for clarification. documented in this encounter [facility] 03-06-2023 Nurse Note The patient is here with her at [facility] for a new consult with Dr. Diego. [...] patient resource guide. The patient verbalized understanding. [facility] 03-06-2023 Nurse Note The patient is here with her at [facility] for a new consult with Dr. Diego. [...] patient verbalized understanding. documented in this encounter [facility] 02-27-2023 History of Present illness Narrative [...] family would like to be seen at [facility]. Referral has been sent. She can return to see me in 6 months to assess her progress. Office Visit on 02/27/23 CONSULT TO ONCOLOGY RAD/ONC CONSULT Torrie Choi MD documented in this encounter [facility] 02-26-2023 Miscellaneous Notes Patient daughter wesley called [...] doesn't she pathology for the tumor??? Wesley [phone] documented in this encounter [facility] 02-12-2023 History of Present illness Narrative Subjective [...] has not fallen. While being evaluated at [facility] preadmission testing for upcoming breast cancer [...] or grammatical errors documented in this encounter [facility] Work Phone: 02-10-2023 History of Present illness Narrative I have reviewed the EMANUEL localization request for Dr. Choi. Left breast: 3:00 posterior depth, invasive ductal carcinoma, HydroMARK butterfly clip, EMANUEL localization. Images marked are dated 01/28/2023. This is a nonbillable encounter. documented in this encounter [facility] 02-06-2023 Miscellaneous Notes Spoke with patient and [...] Follow up with PCP Call taken by senior power scheduler today: Patient daughter called about some concerns [facility] appt PA notice patients feet were swollen. Patient doesn't wear cpmpression socks. Should they attempt to get some before the surgery and can you place an order for these? Call Alicia hubbard [phone] or Christiano her [phone] Please see previous note from 02/05/23 Breast [...] is scheduled on 02/18. Please call at [phone] Thank You documented in this encounter [facility] 02-06-2023 Miscellaneous Notes Please see encounter from 02/05/23. This encounter closed. Patient daughter called about some concerns [facility] appt PA notice patients feet were swollen. Patient doesn't wear cpmpression socks. Should they attempt to get some before the surgery and can you place an order for these? Call Alicia or stevie [phone] or Christiano her [phone] documented in this encounter [facility] 02-04-2023 History and physical note HISTORY AND [...] Procedure scheduled on 02/18/2023 at [facility]. REVIEW OF SYSTEMS: General: No [...] calcifications on mammogram 07/24/2013 Cancer (HCC) uterine MARYC on CPAP MARCY on CPAP 02/05/2023 PMH [...] or any previous visit (from the past 59773 hour(s)). Assessment Patient has the following medical [...] amyloid angiopathy, the rebleeding risk in the intermediate accountant is probably in the range of ~5% per year." MARCY on CPAP Assessment: Adherent to CPAP History of uterine cancer Assessment: 2006, s/p hysterectomy. No chemo or radiation needed. [...] TO PENICILLIN ALLERGY Scheduling Instructions: Please call [phone] to set up an urgent consult. Multivitamin capsule Sig: Take 1 capsule by mouth once daily. Instructions Given to Patient: Instructions located in the after visit summary. Patient given verbal and written preop instructions and voices comprehension and compliance. SIGNATURE: Jolly Dooley PA-C PATIENT NAME: Madiha Perales DATE: February 05, 2023 TIME: 11:21 AM PAGER/CONTACT #: documented in this encounter [facility] 02-04-2023 Instructions Jolly Dooley PA-C - 02/04/2023 11:05 AM EDT Images from the original note were not included. PATIENT PREOPERATIVE INSTRUCTIONS Torrie Choi MD has scheduled you for your procedure at this surgery center: [facility]: [phone] -- [address] [facility] [address]. Please read below carefully for your personalized [...] Procedures: - YOU MUST HAVE A RESPONSIBLE TALENT SOURCER TAKE YOU HOME. A COVERSTITCH ELASTIC ATTACHER OR BEEF SPLITTER CANNOT BE MADE A RESPONSIBLE TALENT SOURCER. - We recommend that a responsible person [...] Advance Directive, please fax a copy to [phone] or email to for it to be [...] Jolly Dooley PA-C documented in this encounter [facility] 08-14-2023 History of Present illness Narrative General Surgery New Patient H&P PATIENT NAME: Madiha Perales Assessment ASSESSMENT/PLAN: (C50.412, Z17.0) Malignant neoplasm of upper-outer quadrant of left breast in female, estrogen receptor positive (HCC) (primary encounter diagnosis) [facility] presents with a new diagnosis of left breast cancer, ER/NV positive and Her-2 positive. We discussed proceeding with surgical management. Options given including mastectomy versus breast conservation. She would like to proceed with lumpectomy with sentinel lymph node biopsy. Risks including bleeding, infection, lymphedema, the need for more surgery, and recurrent tumor were explained to the patient and her family and she would like to proceed. She will be scheduled for EMANUEL Neon Light Installer placement. Surgery is scheduled for February 18. [...] ultrasound-guided core biopsy: ---Invasive ductal carcinoma, preliminary Hanover grade 3 (of 3), measuring at least 8 mm in greatest dimension. Breast Biomarkers RESULTS: Estrogen Receptor (ER) Positive 100 % Stain intensity: strong Internal controls: present and stained as expected External controls: appropriately stained Progesterone Receptor (NV) Positive 70 % Stain intensity: strong Internal controls: present and stained as expected External controls: appropriately stained HER2 (ERBB2) IMMUNOHISTOCHEMISTRY ASSAY Interpretation: POSITIVE for HER2 (ERBB2) Expression Score: 3+ Torrie Choi MD documented in this encounter [facility] 02-03-2023 Procedure note Anticipated Surgical Procedure/ CPT Code: left LUMPECTOMY WITH SENTINEL LYMPH NODE BIOPSY - 49908-733, 66835-443, 56698-536, with EMANUEL Anticipated Anesthetic: General Patient weight: There were no vitals taken for this visit. BMI: There is no height or weight on file to calculate BMI. Planned antibiotic: SCDs needed: Yes Locum Tenens Needed: Yes Pre Op Clearance: PAT Anticoagulation: No Diabetic: No Location: [place] OR Dx - left breast cancer documented in this encounter [facility] 01-29-2023 Miscellaneous Notes Called patient to notify the breast pathology results did show malignancy per Dr. Rausch. [place] office staff will assist patient with a surgical consult appt with Dr. Choi/ Dr. Moore. Patient verbalized understanding. documented in this encounter [facility] 01-28-2023 Miscellaneous Notes Patient provided At Home Instructions pamphlet and Dr. Rausch spoke with her and her about after care and results. documented in this encounter [facility] 01-23-2023 History of Present illness Narrative No [...] in 6 months documented in this encounter [facility] Work Phone: 01-21-2023 History of Present [...] 2023 8:23 AM documented in this encounter [facility] 11-27-2022 History of Present illness Narrative Radiology [...] 2022 3:56 PM documented in this encounter [facility] 10-30-2022 History of Present illness Narrative Associated [...] the skin lesion. documented in this encounter [facility] Work Phone: 10-24-2022 History of Present [...] 40 minute appointment documented in this encounter [facility] Work Phone: 09-21-2021 Miscellaneous Notes September 21, 2021 PID: [id number] Madiha Perales [address] [place] [address] Dear Ms. Perales, We are pleased to [...] report will be kept on file at [facility] as part of your permanent medical record and are available for your continuing care. Thank you for allowing us to help in meeting your health care needs. Sincerely, Dr. Herring Interpreting Radiologist [facility] (Normal over 40) documented in this encounter [facility] 09-21-2021 History of Present illness Narrative Radiology [...] 2021 8:29 AM documented in this encounter [facility] 07-13-2020 History of Present illness Narrative Madiha [...] visit was done at last appointment. [facility] Work Phone: Evaluation note Diagnosis Seborrheic keratosis- Primary documented in this encounter [facility] Work Phone: Evaluation note* Diagnosis Seborrheic keratosis- Primary Pigmented skin lesion suspicious for malignant neoplasm documented in this encounter [facility] Work Phone: Evaluation note* Diagnosis Abnormal finding on radiological examination of breast- Primary Other (abnormal) findings on radiological examination of breast documented in this encounter [facility] note* Diagnosis Abnormal finding on radiological examination of breast- Primary Other (abnormal) findings on radiological examination of breast [facility] Diagnosis Abnormal finding on radiological examination of breast Other (abnormal) findings on radiological examination of breast documented in this [facility]* Diagnosis Parkinsonism, unspecified Parkinsonism type (CMS/HCC)- Primary Depression with anxiety Dysthymic disorder Repeated falls 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CMS/HCC) documented in this encounter [facility] Work Phone: Evaluation note* Diagnosis Abnormal finding on radiological examination of breast Other (abnormal) findings on radiological examination of breast documented in this encounter [facility]* Diagnosis Malignant neoplasm of upper-outer quadrant of left breast in female, estrogen receptor positive (HCC)- Primary Malignant neoplasm of upper-outer quadrant of left breast in female, estrogen receptor positive (HCC) documented in this encounter [facility] note* Diagnosis Malignant neoplasm of upper-outer quadrant of left breast in female, estrogen receptor positive (HCC)- Primary Malignant neoplasm of upper-outer quadrant of left breast in female, estrogen receptor positive (HCC) [facility] Diagnosis Pre-op evaluation- Primary Preoperative examination, unspecified Past history of allergy to penicillin-type antibiotic Personal history of allergy to penicillin AMRCY on CPAP Obstructive sleep apnea (adult) (pediatric) [...] receptor positive (HCC) documented in this encounter [facility] note* Diagnosis Malignant neoplasm of upper-outer quadrant of left breast in female, estrogen receptor positive (HCC) Malignant neoplasm of upper-outer quadrant of left breast in female, estrogen receptor positive (HCC) documented in this encounter [facility] note* Diagnosis Depression with anxiety- Primary Dysthymic disorder Repeated falls Parkinsonism, unspecified Parkinsonism type (CMS/HCC) Bilateral lower extremity edema documented in this encounter [facility] Work Phone: Evaluation note* Diagnosis Malignant neoplasm of upper-outer quadrant of left breast in female, estrogen receptor positive (HCC)- Primary documented in this encounter [facility] note* Diagnosis Malignant neoplasm of upper-outer quadrant of left breast in female, estrogen receptor positive (HCC)- Primary documented in this encounter [facility] note* Diagnosis Malignant neoplasm of upper-outer quadrant of left breast in female, estrogen receptor positive (HCC)- Primary Other general symptoms and signs documented in this encounter [facility] note* Diagnosis Malignant neoplasm of upper-outer quadrant of left breast in female, estrogen receptor positive (HCC) documented in this encounter [facility] note* Diagnosis Malignant neoplasm of upper-outer quadrant of left breast in female, estrogen receptor positive (HCC)- Primary documented in this encounter [facility] note* Diagnosis Malignant neoplasm of upper-outer quadrant of left breast in female, estrogen receptor positive (HCC) Other general symptoms and signs [facility]* Diagnosis Malignant neoplasm of upper-outer quadrant of left breast in female, estrogen receptor positive (HCC)- Primary documented in this encounter [facility] note* Diagnosis Malignant neoplasm of upper-outer quadrant of left breast in female, estrogen receptor positive (HCC) [facility]* Diagnosis Malignant neoplasm of upper-outer quadrant of left breast in female, estrogen receptor positive (HCC)- Primary documented in this encounter [facility] note* Diagnosis Malignant neoplasm of upper-outer quadrant of left breast in female, estrogen receptor positive (HCC)- Primary [facility]* Diagnosis Malignant neoplasm of upper-outer quadrant of left breast in female, estrogen receptor positive (HCC) [facility] Malignant neoplasm of upper-outer quadrant of left breast in female, estrogen receptor positive (HCC)- Primary [facility] Malignant neoplasm of upper-outer quadrant of left breast in female, estrogen receptor positive (HCC)- Primary [facility] Diagnosis Malignant neoplasm of upper-outer quadrant of left breast in female, estrogen receptor positive (HCC) [facility] Diagnosis Malignant neoplasm of upper-outer quadrant of left breast in female, estrogen receptor positive (HCC) [facility] Diagnosis Malignant neoplasm of upper-outer quadrant of left breast in female, estrogen receptor positive (HCC)- Primary [facility] Diagnosis Malignant neoplasm of upper-outer quadrant of left breast in female, estrogen receptor positive (HCC) [facility] Diagnosis Malignant neoplasm of upper-outer quadrant of left breast in female, estrogen receptor positive (HCC)- Primary [facility] Diagnosis Encounter for monitoring cardiotoxic drug therapy [facility] Diagnosis Malignant neoplasm of upper-outer quadrant of left breast in female, estrogen receptor positive (HCC)- Primary [facility] Diagnosis Malignant neoplasm of upper-outer quadrant of left breast in female, estrogen receptor positive (HCC) [facility]* Diagnosis Malignant neoplasm of upper-outer quadrant of left breast in female, estrogen receptor positive (HCC) Localized edema Edema [facility] Diagnosis Malignant neoplasm of upper-outer quadrant of left breast in female, estrogen receptor positive (HCC)- Primary Encounter for monitoring cardiotoxic drug therapy [facility] Diagnosis Malignant neoplasm of upper-outer quadrant of left breast in female, estrogen receptor positive (HCC) Localized edema Edema [facility] Diagnosis Malignant neoplasm of upper-outer quadrant of left breast in female, estrogen receptor positive (HCC) Falling Unspecified fall Hypotension, unspecified hypotension type [facility]* Diagnosis Malignant neoplasm of upper-outer quadrant of left breast in female, estrogen receptor positive (HCC) [facility] Diagnosis Malignant neoplasm of upper-outer quadrant of left breast in female, estrogen receptor positive (HCC)- [facility] Malignant neoplasm of upper-outer quadrant of left breast in female, estrogen receptor positive (HCC) [facility] Diagnosis Malignant neoplasm of upper-outer quadrant of left breast in female, estrogen receptor positive (HCC)- Primary [facility]* Diagnosis Malignant neoplasm of upper-outer quadrant of left breast in female, estrogen receptor positive (HCC) [facility]* Diagnosis Encounter for monitoring cardiotoxic drug therapy [facility]* Diagnosis Parkinsonism, unspecified Parkinsonism type- Primary Toxic effect of chemotherapy Dehydration Malignant neoplasm of right female breast, unspecified estrogen receptor status, unspecified site of breast (CMS/HCC) documented in this encounter [facility] Work Phone: Evaluation note* Diagnosis Malignant neoplasm of upper-outer quadrant of left female breast, unspecified estrogen receptor status (HCC) [facility]* Diagnosis Malignant neoplasm of upper-outer quadrant of left breast in female, estrogen receptor positive (HCC) (HCC)- Primary [facility]* Diagnosis Malignant neoplasm of upper-outer quadrant of left breast in female, estrogen receptor positive (HCC) (HCC) documented [facility]* Diagnosis Malignant neoplasm of upper-outer quadrant of left breast in female, estrogen receptor positive (HCC) (HCC)- Primary [facility]* Diagnosis Malignant neoplasm of upper-outer quadrant of left breast in female, estrogen receptor positive (HCC) (HCC)- Primary [facility]* Diagnosis Admission for therapeutic drug monitoring Encounter for therapeutic drug monitoring Encounter for monitoring cardiotoxic drug therapy [facility]* Diagnosis Parkinsonism, unspecified Parkinsonism type- Primary Malignant neoplasm of right female breast, unspecified estrogen receptor status, unspecified site of breast (CMS/HCC) 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CMS/HCC) Medicare annual wellness visit, subsequent Bilateral lower extremity edema documented in this encounter [facility] Work Phone: Evaluation note* Diagnosis Thyroid nodule Nontoxic uninodular goiter documented in this encounter [facility] Work Phone: Evaluation note* Diagnosis Nontoxic single thyroid nodule Nontoxic uninodular goiter documented in this encounter [facility] Work Phone: Evaluation note* Diagnosis Malignant neoplasm of upper-outer quadrant of left breast in female, estrogen receptor positive (HCC) (HCC) [facility]* Diagnosis Malignant neoplasm of upper-outer quadrant of left breast in female, estrogen receptor positive (HCC) (HCC) [facility] Diagnosis Malignant neoplasm of upper-outer quadrant of left breast in female, estrogen receptor positive (HCC) (HCC)- Primary [facility]* Diagnosis Malignant neoplasm of upper-outer quadrant of left breast in female, estrogen receptor positive (HCC) (HCC)- Primary Encounter for monitoring cardiotoxic drug therapy Asymptomatic menopausal state Encounter for monitoring anastrozole therapy [facility] [employer] [facility]* Diagnosis Malignant neoplasm of upper-outer quadrant of left breast in female, estrogen receptor positive (HCC) (HCC) [facility]* Diagnosis Malignant neoplasm of upper-outer quadrant of left breast in female, estrogen receptor positive (HCC) (HCC)- Primary [facility] Diagnosis Malignant neoplasm of upper-outer quadrant of left breast in female, estrogen receptor positive (HCC) (HCC) Asymptomatic menopausal state Encounter for monitoring anastrozole therapy [facility]* Diagnosis Malignant neoplasm of upper-outer quadrant of left breast in female, estrogen receptor positive (HCC)- Primary [facility]* Diagnosis Admission for therapeutic drug monitoring Encounter for therapeutic drug monitoring Encounter for monitoring cardiotoxic drug therapy [facility] [employer]* Diagnosis Malignant neoplasm of upper-outer quadrant of left breast in female, estrogen receptor positive (HCC) [facility]* Diagnosis Malignant neoplasm of upper-outer quadrant of left breast in female, estrogen receptor positive (HCC) [facility]* Diagnosis Malignant neoplasm of upper-outer quadrant of left breast in female, estrogen receptor positive (HCC)- Primary documented in this encounter [facility] note* Diagnosis Malignant neoplasm of upper-outer quadrant of left breast in female, estrogen receptor positive (HCC)- Primary documented in this encounter [facility] note* Diagnosis Malignant neoplasm of upper-outer quadrant of left breast in female, estrogen receptor positive (HCC)- Primary documented in this encounter [facility] note* Diagnosis 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 Parkinsonism, unspecified Parkinsonism type (Multi) Depression with anxiety Dysthymic disorder Pneumonia due to COVID-19 virus Malignant neoplasm of right female breast, unspecified estrogen receptor status, unspecified site of breast (Multi) documented in this encounter [facility] Work Phone: Evaluation note* Diagnosis Malignant neoplasm of upper-outer quadrant of left breast in female, estrogen receptor positive (HCC) documented in this encounter [facility] note* Diagnosis Malignant neoplasm of upper-outer quadrant of left breast in female, estrogen receptor positive (HCC)- Primary documented in this encounter [facility] note* Diagnosis Malignant neoplasm of upper-outer quadrant of left breast in female, estrogen receptor positive (HCC) documented in this encounter [facility] note* Diagnosis Visit for screening mammogram- Primary Other screening mammogram Malignant neoplasm of upper-outer quadrant of left breast in female, estrogen receptor positive (HCC) documented in this encounter [facility] note* Diagnosis Pre-op evaluation- Primary Preoperative examination, [...] positive (HCC)- Primary documented in this encounter [facility] note* Diagnosis Malignant neoplasm of upper-outer quadrant of left breast in female, estrogen receptor positive (HCC)- Primary documented in this encounter [facility] note* Diagnosis Pre-op evaluation- Primary Preoperative [...] receptor positive (HCC) [facility] this [facility]* Diagnosis Malignant neoplasm of upper-outer quadrant of left breast in female, estrogen receptor positive (HCC) [facility]* Diagnosis Malignant neoplasm of upper-outer quadrant of left breast in female, estrogen receptor positive (HCC) documented in this encounter [facility] note* Diagnosis Parkinsonism, unspecified Parkinsonism type (Multi)- Primary Malignant neoplasm of right female breast, unspecified estrogen receptor status, unspecified site of breast (Multi) Depression with anxiety Dysthymic disorder Elevated TSH Other abnormal blood chemistry Obesity (BMI 30.0-34.9) Other specified depressive episodes documented in this encounter [facility] Work Phone: Evaluation note* Diagnosis Malignant neoplasm of upper-outer quadrant of left breast in female, estrogen receptor positive (HCC) documented in this encounter [facility] note* Diagnosis Malignant neoplasm of upper-outer quadrant of left breast in female, estrogen receptor positive (HCC) documented in this encounter [facility] note* Diagnosis Malignant neoplasm of upper-outer quadrant of left breast in female, estrogen receptor positive (HCC)- Primary documented in this encounter [facility] note* Diagnosis Medicare annual wellness visit, subsequent- Primary Depression with anxiety Dysthymic disorder Elevated TSH Other abnormal blood chemistry Parkinson's disease without dyskinesia or fluctuating manifestations Vitamin D deficiency Do not resuscitate documented in this encounter [facility] Work Phone: Evaluation note* Diagnosis Pre-op [...] Cervicogenic headache Headache [facility] Diagnosis Pre-op evaluation- Primary Preoperative examination, [...] allergy Personal history of allergy to penicillin Abnormal EEG- Primary Nonspecific abnormal electroencephalogram (EEG) Transient confusion Unspecified psychosis [facility] Diagnosis Pre-op evaluation- Primary Preoperative examination, [...] allergy Personal history of allergy to penicillin Abnormal MRI of head Nonspecific (abnormal) findings on radiological and other examination of skull and head History of stroke Transient ischemic attack (TIA), and cerebral infarction without residual deficits [facility]* Mrs. Perales was [...] were last checked in June, all reassuring. [facility] Work Phone: History of Present [...] months, despite using [employer] twice daily. [facility] Work Phone: Instructions* Attachments The following attachments cannot be sent through Care Everywhere. * DASH Diet (Jamaican) * Preventing falls in adults (Jamaican) [facility] Reason for referral (narrative)* Diagnostic Procedure Only (Routine) - Closed Specialty Diagnoses / Procedures Referred By Ashley sigala Referred To Contact [facility] Diagnoses Abnormal finding on radiological examination of breast Procedures US BREAST LTD LEFT US BREAST UNI REAL TIME WITH IMAGE LIMITED Jannette Mendez MD [address] [facility] [place] [address] [facility] [address] [place] [phone] Referral ID Status Reason Start Date Expiration Date V isits Requested Visits Authorized [id number] Closed Auto-Generate d Referral 01/21/2023 06/22/2023 1 1 [facility] for referral (narrative)* Diagnostic Procedure Only (Routine) - Authorized Specialty Diagnoses / Procedures Referred By Ashley sigala Referred To Contact [facility] Diagnoses Abnormal finding on radiological examination of breast Procedures US BIOPSY BREAST LEFT BX BREAST W/DEVICE 1ST LESION ULTRASOUND GUID Jannette Mendez MD [address] [place] [address] [facility] [address] [place] [phone] Referral ID Status Reason Start Date Expiration Date Visits Requested Visits Authorized [id number] Authorized Auto-Generat ed Referral 01/21/2023 02/20/2024 1 1 T [facility] for referral (narrative)* Diagnostic Procedure Only (Routine) - Closed Specialty Diagnoses / Procedures Referred By Ashley t Referred To Contact [facility] Diagnoses Abnormal finding on radiological examination of breast Procedures US BREAST LTD LEFT US BREAST UNI REAL TIME WITH IMAGE LIMITED Jannette Mendez MD [address] [facility] [place] [address] [facility] [address] [place] [address] Referral ID Status Reason Start Date Expiration Date V isits Requested Visits Authorized [id number] Closed Auto-Generate d Referral 01/21/2023 06/22/2023 1 1 [facility] for referral (narrative)* Diagnostic Procedure Only (Routine) - Closed Specialty Diagnoses / Procedures Referred By Contac t Referred To Contact [facility] Diagnoses Abnormal finding on radiological examination of breast Procedures US BIOPSY BREAST LEFT BX BREAST W/DEVICE 1ST LESION ULTRASOUND GUID Jannette Mendez MD [address] [place] [address] [facility] [address] [place] [phone] Referral ID Status Reason Start Date Expiration Date V isits Requested Visits Authorized [id number] Closed Auto-Generate d Referral 01/21/2023 02/20/2024 1 1 [facility] for referral (narrative)* Diagnostic Procedure Only (Routine) - Pending Review Specialty Diagnoses / Procedures Referred By Contac t Referred To Contact [facility] Diagnoses Malignant neoplasm of upper-outer quadrant of left breast in female, estrogen receptor positive (HCC) Procedures LEE NDL LOC W LEE GD LEFT PERQ DEVICE PLACEMENT BREAST LOC 1ST LES W/GDNCE Torrie Choi MD [address] [address] [facility] [address] [place] [phone] Referral ID Status Reason Start Date Expiration Date Visits Requested Visits Authorized [id number] Pending Review Auto-Generat ed Referral 02/03/2023 03/04/2024 1 1 [facility] for referral (narrative)* Diagnostic Procedure [...] 2-VIEW BREAST INC Lucius Spicer PA-C [address] [place] [address] [facility] [address] [place] [address] Referral ID Status Reason Start Date Expiration Date Visits Requested Visits Authorized [id number] New Request Auto-Generat ed Referral 02/04/2024 03/04/2025 1 1 T [facility] for referral (narrative)* Diagnostic Procedure Only (Routine) - Closed Specialty Diagnoses / Procedures Referred By Ashley sigala Referred To Contact [facility] Diagnoses Visit for screening mammogram Malignant neoplasm of upper-outer quadrant of left breast in female, estrogen receptor positive (HCC) Procedures LEE SCREENING W SHIVA SCREENING DIGITAL BREAST TOMOSYNTHESIS BI SCREENING MAMMOGRAPHY BI 2-VIEW BREAST INC Lucius Spicer PA-C [address] [place] [address] [facility] [address] [place] [address] Referral ID Status Reason Start Date Expiration Date V isits Requested Visits Authorized [id number] Closed Auto-Generate d Referral 02/04/2024 03/04/2025 1 1 [facility] for referral (narrative)* Consultation (Routine) - Pending Review Specialty Diagnoses / Procedures Referred By Ashley sigala Referred To Contact Physical Therapy Diagnoses Parkinsonism, unspecified Parkinsonism type (Multi) Marie Devi MD [address] [facility], [address] [address] Referral ID Status Reason Start Date Expiration Date Visits Requested Visits Authorized [id number] Pending Review Specialty Services Required 02/18/2024 02/17/2025 1 1 [facility] Work Phone: [facility] Narrative* Diagnostic Procedure Only (Routine) - Closed Specialty Diagnoses / Procedures Referred By Contac t Referred To Contact [facility] Diagnoses Abnormal finding on radiological examination of breast Procedures US BREAST LTD LEFT US BREAST UNI REAL TIME WITH IMAGE LIMITED Jannette Mendez MD [address] [place] [address] [facility] [address] [place] [phone] Referral ID Status Reason Start Date Expiration Date V isits Requested Visits Authorized [id number] Closed Auto-Generate d Referral 01/21/2023 06/22/2023 1 1 [facility] for visit Narrative* Diagnostic Procedure Only (Routine) - Closed Specialty Diagnoses / Procedures Referred By Contac t Referred To Contact [facility] Diagnoses Abnormal finding on radiological examination of breast Procedures US BIOPSY BREAST LEFT BX BREAST W/DEVICE 1ST LESION ULTRASOUND GUID Jannette Mendez MD [address] [place] [address] [facility] [address] [place] [phone] Referral ID Status Reason Start Date Expiration Date V isits Requested Visits Authorized [id number] Closed Auto-Generate d Referral 01/21/2023 02/20/2024 1 1 [facility] for visit Narrative* Diagnostic Procedure Only (Routine) - Closed Specialty Diagnoses / Procedures Referred By Contac t Referred To Contact [facility] Diagnoses Malignant neoplasm of upper-outer quadrant of left breast in female, estrogen receptor positive (HCC) Procedures LEE NDL LOC W LEE GD LEFT PERQ DEVICE PLACEMENT BREAST LOC 1ST LES W/GDNCE Torrie Choi MD [address] [address] [facility] [address] [place] [phone] Referral ID Status Reason Start Date Expiration Date V isits Requested Visits Authorized [id number] Closed Auto-Generate d Referral 02/03/2023 03/04/2024 1 1 [facility] for visit Narrative* Diagnostic Procedure Only (Routine) - Closed Specialty Diagnoses / Procedures Referred By Contac t Referred To Contact [facility] Diagnoses Visit for screening mammogram Malignant neoplasm of upper-outer quadrant of left breast in female, estrogen receptor positive (HCC) Procedures LEE SCREENING W SHIVA SCREENING DIGITAL BREAST TOMOSYNTHESIS BI SCREENING MAMMOGRAPHY BI 2-VIEW BREAST INC Lucius Spicer PA-C [address] [place] [address] [facility] [address] [place] [address] Referral ID Status Reason Start Date Expiration Date V isits Requested Visits Authorized [id number] Closed Auto-Generate d Referral 02/04/2024 03/04/2025 1 1 [facility]* Diagnostic Procedure Only (Routine) - Closed Specialty Diagnoses / Procedures Referred By Ashley sigala Referred To Contact [facility] Diagnoses Abnormal MRI of head History of stroke Procedures US CAROTID BILATERAL Sara Ramey, TAIWO.MACHINE TECH [address] [place] [address] Phone: tel: fax: [place] [address] Referral ID Status Reason Start Date Expiration Date V isits Requested Visits Authorized [id number] Closed Auto-Generate d Referral 01/12/2025 02/11/2026 1 1 [facility] Family History No Family History Records Found [...] immunization * 1: Have you ever had Guillain-[place] syndrome? (a viral illness resulting in neurological symptoms, including paralysis) (Yes/No): NO * 2. Have you ever had an anaphylactic reaction to prior flu vaccines? (Yes/No): NO * Patient was provided a copy of the current Influenza Vaccine Information Sheet Advance Directives No Advanced Directives Records FoundDocuments on File Type Date Recorded Patient Weaver Needle Loom Expl anation Advance Directive(s) 01/17/2020 4:27 PM Documents on File Type Date Recorded Patient Weaver Needle Loom Expl anation Advance Directive(s) 01/17/2020 4:27 PM [...] Agents on File Name Relationship Healthcare Agent Relationshi p Communication Christiano Perales Spouse Health Care [...] With: Patient Date Activated Date Inactivated Comments 12/09/2024 4:54 [...] for malignant neoplasm Procedures Shaving Epidermal/Dermal Dara Sorensen DO [address] [facility], [address] [place] [address] Referral ID Status Reason Start Date Expiration Date V isits Requested Visits Authorized [id number] Authorized 10/30/2022 04/28/2023 1 1 Specialty Diagnoses / Procedures Referred By Contac t Referred To Contact Radiation Oncology Diagnoses Malignant neoplasm of upper-outer quadrant of left breast in female, estrogen receptor positive (HCC) Procedures RAD/ONC CONSULT OFFICE/OUTPATIENT [facility] 60-74 MINUTES Torrie Choi MD [address] [place] [address] Referral ID Status Reason Start Date Expiration Date Visits Requested Visits Authorized [id number] Authorized PCP Requested Referral 02/27/2023 02/27/2024 1 1 Specialty Diagnoses / Procedures Referred By Contac t Referred To Contact Oncology Diagnoses Malignant neoplasm of upper-outer quadrant of left breast in female, estrogen receptor positive (HCC) Procedures CONSULT TO ONCOLOGY OFFICE/OUTPATIENT [facility] 60-74 MINUTES Torrie Choi MD [address] [id number] Referral ID Status Reason Start Date Expiration Date Visits Requested Visits Authorized [id number] Authorized PCP Requested Referral 02/27/2023 02/27/2024 1 1 Specialty Diagnoses / Procedures Referred By Contac t Referred To Contact Cardiology Diagnoses Malignant neoplasm of upper-outer quadrant of left breast in female, estrogen receptor positive (HCC) Other general symptoms and signs Procedures Transthoracic echocardiogram (TTE) complete with contrast, bubble, strain, and 3D PRN NV ECHO TTHRC R-T 2D W/WOM-MODE COMPL SPEC&COLR D NV TTE W OR WO FOL WCON,Stevie Lizarraga DO [address] [facility] [address] [place] [address] Referral ID Status Reason Start Date Expiration Date V isits Requested Visits Authorized [id number] Authorized 03/18/2023 09/14/2023 1 1 Referral ID Status Reason Start Date Expiration Date Visits Re quested Visits Authorized [id number] Closed 03/18/2023 09/14/2023 1 1 Specialty Diagnoses / Procedures Referred By Contac t Referred To Contact Cardiology Diagnoses Encounter for monitoring cardiotoxic drug therapy Procedures Transthoracic echocardiogram (TTE) complete with contrast, bubble, strain, and 3D PRN NV ECHO TTHRC R-T 2D W/WOM-MODE COMPL SPEC&COLR D NV TTE W OR WO FOL WCON,DOPPLER Fanny Stevie E, DO [address] [place] [address] Referral ID Status Reason Start Date Expiration Date V isits Requested Visits Authorized [id number] Authorized 05/20/2023 05/19/2024 1 1 Specialty Diagnoses / Procedures Referred By Contac t Referred To Contact Cardiology Diagnoses Malignant neoplasm of upper-outer quadrant of left breast in female, estrogen receptor positive (HCC) Localized edema Procedures Vascular US lower extremity venous duplex left FannyArellanoesa E, DO [address] [place] [address] Referral ID Status Reason Start Date Expiration Date Visits Re quested Visits Authorized [id number] Closed 06/03/2023 06/02/2024 1 1 Referral ID Status Reason Start Date Expiration Date Visits Re quested Visits Authorized [id number] Closed 05/20/2023 05/19/2024 1 1 Specialty Diagnoses / Procedures Referred By Contac t Referred To Contact Radiology Diagnoses Malignant neoplasm of upper-outer quadrant of left female breast, unspecified estrogen receptor status (HCC) Procedures CT Sim WO Vicki Diego MD [address] [place] [address] Referral ID Status Reason Start Date Expiration Date Visits Re quested Visits Authorized [id number] Closed 07/02/2023 07/01/2024 1 1 Specialty Diagnoses / Procedures Referred By Contac t Referred To Contact Cardiology Diagnoses Admission for therapeutic drug monitoring Encounter for monitoring cardiotoxic drug therapy Procedures Transthoracic echocardiogram (TTE) complete with contrast, bubble, strain, and 3D PRN NV ECHO TTHRC R-T 2D W/WOM-MODE COMPL SPEC&COLR D NV TTE W OR WO FOL WCON,DOPPLER Alvarez Escobedoa Sam, DO [address] [place] [address] Referral ID Status Reason Start Date Expiration Date V isits Requested Visits Authorized [id number] Pending Review 07/29/2023 07/28/2024 1 1 Specialty Diagnoses / Procedures Referred By Contac t Referred To Contact Radiology Diagnoses Thyroid nodule Procedures US thyroid Marie Devi MD [address] [facility], [facility] [address] [place] [address] Referral ID Status Reason Start Date Expiration Date Visits Requested Visits Authorized [id number] Pending Review Perform Procedure 07/30/2023 07/29/2024 1 1 Specialty Diagnoses / Procedures Referred By Contac t Referred To Contact Radiology Diagnoses Nontoxic single thyroid nodule Procedures US thyroid Marie Devi MD [address] [facility], [facility] [address] [place] [address] Referral ID Status Reason Start Date Expiration Date Visits Requested Visits Authorized [id number] Authorized Perform Procedure 07/30/2023 07/29/2024 1 1 Referral ID Status Reason Start Date Expiration Date Visits Requested Visits Authorized [id number] Pending Review Perform Procedure 07/26/2023 07/25/2024 1 1 Specialty Diagnoses / Procedures Referred By Contac t Referred To Contact Cardiology Diagnoses Admission for therapeutic drug monitoring Encounter for monitoring cardiotoxic drug therapy Procedures Transthoracic echocardiogram (TTE) complete with contrast, bubble, strain, and 3D PRN NV ECHO TTHRC R-T 2D W/WOM-MODE COMPL SPEC&COLR D NV TTE W OR WO FOL WCON,Stevie Lizarraga, DO [address] [facility] [address] [place] [address] Referral ID Status Reason Start Date Expiration Date Visits Re quested Visits Authorized [id number] Closed 07/29/2023 07/28/2024 1 1 Medications Administered [...] or prosecute any alcohol or drug abuse patient.[facility] Hospital[facility] the event this information is protected by the Federal Confidentiality of Alcohol and Drug Abuse Patient Records regulations: The Federal rules restrict any use of the information to criminally investigate or prosecute any alcohol or drug abuse patient.[facility] HospitalIn the event this information is protected by the Federal Confidentiality of Alcohol and Drug Abuse Patient Records regulations: The Federal rules restrict any use of the information to criminally investigate or prosecute any alcohol or drug abuse patient.[facility] HospitalIn the event this information is protected by the Federal Confidentiality of Alcohol and Drug Abuse Patient Records regulations: The Federal rules restrict any use of the information to criminally investigate or prosecute any alcohol or drug abuse patient.[facility] HospitalIn the event this information is protected by the Federal Confidentiality of Alcohol and Drug Abuse Patient Records regulations: The Federal rules restrict any use of the information to criminally investigate or prosecute any alcohol or drug abuse patient.[facility] HospitalIn the event this information is protected by the Federal Confidentiality of Alcohol and Drug Abuse Patient Records regulations: The Federal rules restrict any use of the information to criminally investigate or prosecute any alcohol or drug abuse patient.[facility] HospitalIn the event this information is protected by the Federal Confidentiality of Alcohol and Drug Abuse Patient Records regulations: The Federal rules restrict any use of the information to criminally investigate or prosecute any alcohol or drug abuse patient.[facility] HospitalIn the event this information is protected by the Federal Confidentiality of Alcohol and Drug Abuse Patient Records regulations: The Federal rules restrict any use of the information to criminally investigate or prosecute any alcohol or drug abuse patient.[facility] HospitalIn the event this information is protected by the Federal Confidentiality of Alcohol and Drug Abuse Patient Records regulations: The Federal rules restrict any use of the information to criminally investigate or prosecute any alcohol or drug abuse patient.[facility] HospitalIn the event this information is protected by the Federal Confidentiality of Alcohol and Drug Abuse Patient Records regulations: The Federal rules restrict any use of the information to criminally investigate or prosecute any alcohol or drug abuse patient.[facility] HospitalIn the event this information is protected by the Federal Confidentiality of Alcohol and Drug Abuse Patient Records regulations: The Federal rules restrict any use of the information to criminally investigate or prosecute any alcohol or drug abuse patient.[facility] HospitalIn the event this information is protected by the Federal Confidentiality of Alcohol and Drug Abuse Patient Records regulations: The Federal rules restrict any use of the information to criminally investigate or prosecute any alcohol or drug abuse patient.[facility] HospitalIn the event this information is protected by the Federal Confidentiality of Alcohol and Drug Abuse Patient Records regulations: The Federal rules restrict any use of the information to criminally investigate or prosecute any alcohol or drug abuse patient.[facility] HospitalIn the event this information is protected by the Federal Confidentiality of Alcohol and Drug Abuse Patient Records regulations: The Federal rules restrict any use of the information to criminally investigate or prosecute any alcohol or drug abuse patient.[facility] HospitalIn the event this information is protected by the Federal Confidentiality of Alcohol and Drug Abuse Patient Records regulations: The Federal rules restrict any use of the information to criminally investigate or prosecute any alcohol or drug abuse patient.[facility] HospitalIn the event this information is protected by the Federal Confidentiality of Alcohol and Drug Abuse Patient Records regulations: The Federal rules restrict any use of the information to criminally investigate or prosecute any alcohol or drug abuse patient.[facility] HospitalIn the event this information is protected by the Federal Confidentiality of Alcohol and Drug Abuse Patient Records regulations: The Federal rules restrict any use of the information to criminally investigate or prosecute any alcohol or drug abuse patient.[facility] HospitalIn the event this information is protected by the Federal Confidentiality of Alcohol and Drug Abuse Patient Records regulations: The Federal rules restrict any use of the information to criminally investigate or prosecute any alcohol or drug abuse patient.[facility] HospitalIn the event this information is protected by the Federal Confidentiality of Alcohol and Drug Abuse Patient Records regulations: The Federal rules restrict any use of the information to criminally investigate or prosecute any alcohol or drug abuse patient.[facility] HospitalIn the event this information is protected by the Federal Confidentiality of Alcohol and Drug Abuse Patient Records regulations: The Federal rules restrict any use of the information to criminally investigate or prosecute any alcohol or drug abuse patient.[facility] HospitalIn the event this information is protected by the Federal Confidentiality of Alcohol and Drug Abuse Patient Records regulations: The Federal rules restrict any use of the information to criminally investigate or prosecute any alcohol or drug abuse patient.[facility] HospitalIn the event this information is protected by the Federal Confidentiality of Alcohol and Drug Abuse Patient Records regulations: The Federal rules restrict any use of the information to criminally investigate or prosecute any alcohol or drug abuse patient.[facility] HospitalIn the event this information is protected by the Federal Confidentiality of Alcohol and Drug Abuse Patient Records regulations: The Federal rules restrict any use of the information to criminally investigate or prosecute any alcohol or drug abuse patient.[facility] HospitalIn the event this information is protected by the Federal Confidentiality of Alcohol and Drug Abuse Patient Records regulations: The Federal rules restrict any use of the information to criminally investigate or prosecute any alcohol or drug abuse patient.[facility] HospitalIn the event this information is protected by the Federal Confidentiality of Alcohol and Drug Abuse Patient Records regulations: The Federal rules restrict any use of the information to criminally investigate or prosecute any alcohol or drug abuse patient.[facility] HospitalIn the event this information is protected by the Federal Confidentiality of Alcohol and Drug Abuse Patient Records regulations: The Federal rules restrict any use of the information to criminally investigate or prosecute any alcohol or drug abuse patient.[facility] HospitalIn the event this information is protected by the Federal Confidentiality of Alcohol and Drug Abuse Patient Records regulations: The Federal rules restrict any use of the information to criminally investigate or prosecute any alcohol or drug abuse patient.[facility] HospitalIn the event this information is protected by the Federal Confidentiality of Alcohol and Drug Abuse Patient Records regulations: The Federal rules restrict any use of the information to criminally investigate or prosecute any alcohol or drug abuse patient.[facility] Reason for Visit (unrecogniz ed section and content) Specialty Diagnoses / Procedures Referred By Contac t Referred To Contact Radiology / [facility] Diagnoses Screening Mammogram, Z12.31 Procedures MAMMOGRAM SCREENING Marie Devi MD [address] [facility] [address] [place] [address] [facility] [place] [address] [place] [address] Referral ID Status Reason Start Date Expiration Date V isits Requested Visits Authorized [id number] Outside PCP 09/21/2021 11/20/2021 1 1 Reason [...] with contrast, bubble, strain, and 3D PRN NV ECHO TTHRC R-T 2D W/WOM-MODE COMPL SPEC&COLR D NV TTE W OR WO FOL WCON,DOPPLER Stevie Escobedo, DO [address] [place] [address] Referral ID Status Reason Start Date Expiration Date Visits Re quested Visits Authorized [id number] Closed 03/18/2023 09/14/2023 1 1 Reason Comments OP Infusion Specialty Diagnoses / Procedures Referred By Contac t Referred To Contact Diagnoses Malignant neoplasm of upper-outer quadrant of left breast in female, estrogen receptor positive (HCC) Stevie Escobedo, DO [address] [place] [address] [facility] [address] [place] [address] Referral ID Status Reason Start Date Expiration Date V isits Requested Visits Authorized [id number] Authorized 03/21/2023 09/17/2023 2 2 Reason Comments Breast Cancer Reason Comments Follow-up Patient fell last we ek and called in and spoke to Nurse. Referral ID Status Reason Start Date Expiration Date V isits Requested Visits Authorized [id number] Authorized 03/21/2023 09/17/2023 999 1001 Reason Onset Date Comments order for ECHO 05/12/2023 Reason Onset Date Comments Orders 06/03/2023 Specialty Diagnoses / Procedures [facility] Ref[facility] To Contact Cardiology Diagnoses Malignant neoplasm of upper-outer quadrant of left breast in female, estrogen receptor positive (HCC) Localized edema Procedures Vascular US lower extremity venous duplex left Fanny, Stevie E, DO [address] [place] [address] Referral ID Status Reason Start Date Expiration Date Visits Re quested Visits Authorized [id number] Closed 06/03/2023 06/02/2024 1 1 Reason Onset Date Comments Lab Orders 06/09/2023 Reason Onset Date Comments Nutrition Counseling 06/11/2023 Specialty Diagnoses / Procedures Referred By Ashley t Referred To Contact Cardiology Diagnoses Encounter for monitoring cardiotoxic drug therapy Procedures Transthoracic echocardiogram (TTE) complete with contrast, bubble, strain, and 3D PRN NV ECHO TTHRC R-T 2D W/WOM-MODE COMPL SPEC&COLR D NV TTE W OR WO FOL WCON,DOPPLER Stevie Escobedo, DO [address] [place] [address] Referral ID Status Reason Start Date Expiration Date Visits Re quested Visits Authorized [id number] Closed 05/20/2023 05/19/2024 1 1 Reason Comments Hospital Follow-up Was at [facility] was not r esponsive could not even stand, saying it was from the chemo Specialty Diagnoses / Procedures Referred By Ashley sigala Referred To Contact Radiology Diagnoses Malignant neoplasm of upper-outer quadrant of left female breast, unspecified estrogen receptor status (HCC) Procedures CT Sim Vicki Henderson MD [address] [place] [address] Referral ID Status Reason Start Date Expiration Date Visits Re quested Visits Authorized [id number] Closed 07/02/2023 07/01/2024 1 1 Reason Comments Follow-up Specialty Diagnoses / Procedures Referred By Ashley t Referred To Contact Diagnoses Malignant neoplasm of upper-outer quadrant of left breast in female, estrogen receptor positive (HCC) (HCC) Stevie Escobedo, DO [address] [place] [address] [facility] [address] [place] [address] Referral ID Status Reason Start Date Expiration Date V isits Requested Visits Authorized [id number] Authorized 03/21/2023 09/17/2023 999 1002 Reason Onset [...] Procedures US thyroid Marie Devi MD [address] [facility], [facility] [address] [place] [address] Referral ID Status Reason Start Date Expiration Date Visits Requested Visits Authorized [id number] Pending Review Perform Procedure 07/30/2023 07/29/2024 1 1 Specialty Diagnoses / Procedures Referred By Ashley sigala Referred To Contact Radiology Diagnoses Nontoxic single thyroid nodule Procedures US thyroid Marie Devi MD [address] [facility], [facility] [address] [place] [address] Referral ID Status Reason Start Date Expiration Date Visits Requested Visits Authorized [id number] Authorized Perform Procedure 07/30/2023 07/29/2024 1 1 Referral ID Status Reason Start Date Expiration Date Visits Requested Visits Authorized [id number] Pending Review Perform Procedure 07/26/2023 07/25/2024 1 1 Referral ID Status Reason Start Date Expiration Date V isits Requested Visits Authorized [id number] Authorized 03/21/2023 09/17/2023 999 1003 Referral ID Status Reason Start Date Expiration Date V isits Requested Visits Authorized [id number] Authorized 03/21/2023 09/17/2023 999 1004 Specialty Diagnoses / Procedures Referred By Ashley sigala Referred To Contact Cardiology Diagnoses Admission for therapeutic drug monitoring Encounter for monitoring cardiotoxic drug therapy Procedures Transthoracic echocardiogram (TTE) complete with contrast, bubble, strain, and 3D PRN NV ECHO TTHRC R-T 2D W/WOM-MODE COMPL SPEC&COLR D NV TTE W OR WO FOL WCON,Stevie Lizarraga DO [address] [place] [address] Referral ID Status Reason Start Date Expiration Date Visits Re quested Visits Authorized [id number] Closed 07/29/2023 07/28/2024 1 1 Specialty Diagnoses / Procedures Referred By Contac t Referred To Contact Diagnoses Malignant neoplasm of upper-outer quadrant of left breast in female, estrogen receptor positive (HCC) Stevie Escobedo, DO [address] [place] [address] [facility] [address] [place] [address] Referral ID Status Reason Start Date Expiration Date V isits Requested Visits Authorized [id number] Authorized 03/21/2023 09/17/2023 999 1005 Reason Onset Date Comments Nutrition Counseling 10/06/2023 Specialty Diagnoses / Procedures Referred By Contac t Referred To Contact [facility] Mily [address] [place] [address] Referral ID Status Reason Start Date Expiration Date V isits Requested Visits Authorized [id number] New Request 10/15/2023 12/14/2023 Reason Comments [facility] Pt states she is doing better. Pt states she has no new concerns to discuss today. Reason Comments Breast Mass Reason Comments Patient Question Reason Comments Follow Up follow up Malignant neoplasm of upper-outer quadrant of left breast in female, estrogen receptor positive (HCC) [facility] On[facility] Notes under scanned Documents Reason Comments Erroneous encounter-disregard Reason Comments Home Care Start of care confir mation call Specialty Diagnoses / Procedures Referred By Contac t Referred To Contact Diagnoses Malignant neoplasm of upper-outer quadrant of left breast in female, estrogen receptor positive (HCC) Stevie Escobedo DO [address] [facility] [address] [place] [address] Phone: tel: fax: [facility] [address] [place] [address] Phone: tel: Reason Comments Follow-up Citlaly is here to follo w up for Parkinsonism/ dep. Her Marcos has a few questions to discuss today., Reason Comments Med Refill Reason Comments Medicare Annual Wellness Visit Mary Janeen t Pt presents for annual MWV- ABN was given to pt and signed, pt verbalized understanding. Reason Comments Hospital Discharge Care Teams (unrecognized sec tion and content) Production Editor Relationship Specialty Start Date End Date Marie Devi MD PCP - General Family Practice 07/16/13 Production Editor Relationship Specialty Start Date End Date Marie Devi MD PCP - General Family Practice 07/16/13 Production Editor Relationship Specialty Start Date End Date Marie Devi MD [address] [facility] [place] [address] PCP - General 08/19/12 Marie Devi MD [address] [facility] [place] [address] PCP - [employer] PCP 06/23/21 Production Editor Relationship Specialty Start Date End Date Marie Devi MD [address] [facility] [place] [address] PCP - General 08/19/12 Marie Devi MD [address] [facility] [place] [address] PCP - [employer] PCP 06/23/21 Production Editor Relationship Specialty Start Date End Date Marie Devi MD PCP - General Family Medicine 07/16/13 Production Editor Relationship Specialty Start Date End Date Marie Devi MD PCP - General Family Medicine 07/16/13 Production Editor Relationship Specialty Start Date End Date Marie Devi MD PCP - General Family Medicine 07/16/13 Production Editor Relationship Specialty Start Date End Date Marie Devi MD PCP - General Family Medicine 07/16/13 Production Editor Relationship Specialty Start Date End Date Marie Devi MD [address] [facility] [place] [address] PCP - General 08/19/12 Marie Devi MD [address] [facility] [place] [address] PCP - [employer]age PCP 06/23/21 Production Editor Relationship Specialty Start Date End Date Marie Devi MD PCP - General Family Medicine 07/16/13 Production Editor Relationship Specialty Start Date End Date Marie Devi MD PCP - General Family Medicine 07/16/13 Production Editor Relationship Specialty Start Date End Date Marie Devi MD PCP - General Family Medicine 07/16/13 Production Editor Relationship Specialty Start Date End Date Marie Devi MD PCP - General Family Medicine 07/16/13 Production Editor Relationship Specialty Start Date End Date Marie Devi MD PCP - General Family Medicine 07/16/13 Production Editor Relationship Specialty Start Date End Date Marie Devi MD PCP - General Family Medicine 07/16/13 Production Editor Relationship Specialty Start Date End Date Marie Dvei MD PCP - General Family Medicine 07/16/13 Production Editor Relationship Specialty Start Date End Date Marie Devi MD [address] [facility] [place] [address] PCP - General 08/19/12 Marie Devi MD [address] [facility], [address] [place] [address] PCP - Human Medicare Advantage PCP 06/23/21 Production Editor Relationship Specialty Start Date End Date Marie Devi MD PCP - General Family Medicine 07/16/13 Production Editor Relationship Specialty Start Date End Date Marie Devi MD PCP - General Family Medicine 07/16/13 Production Editor Relationship Specialty Start Date End Date Marie Devi MD [address] [facility], [address] [place] [address] PCP - General Family Medicine 03/06/23 Vicki Diego MD [address] [place] [place] [address] Radiation Oncologist Radiation Oncology 03/06/23 Production Editor Relationship Specialty Start Date End Date Marie Devi MD [address] [facility], [address] [place] [address] PCP - General Family Medicine 03/06/23 Vicki Diego MD [address] [place] [place] [address] Radiation Oncologist Radiation Oncology 03/06/23 Stevie Escobedo DO [address] [place] [place] [address] Consulting Physician Hematology and Oncology 03/18/23 Production Editor Relationship Specialty Start Date End Date Marie Devi MD [address] [facility], [address] [place] [address] PCP - General Family Medicine 03/06/23 Vicki Diego MD [address] [place] [place] [address] Radiation Oncologist Radiation Oncology 03/06/23 Stevie Escobedo DO [address] [place] [address] Consulting Physician Hematology and Oncology 03/18/23 Production Editor Relationship Specialty Start Date End Date Marie Devi MD [address] [facility], [address] [place] [address] PCP - General Family Medicine 03/06/23 Vicki Diego MD [address] [place] [address] Radiation Oncologist Radiation Oncology 03/06/23 Stevie Escobedo DO [address] [place] [address] Consulting Physician Hematology and Oncology 03/18/23 Production Editor Relationship Specialty Start Date End Date Marie Devi MD [address] [facility], [address] [place] [address] PCP - General Family Medicine 03/06/23 Vicki Diego MD [address] [place], [place] [id number] Radiation Oncologist Radiation Oncology 03/06/23 Stevie Escobedo DO [address] [place] [address] Consulting Physician Hematology and Oncology 03/18/23 Production Editor Relationship Specialty Start Date End Date Marie Devi MD [address] [facility], [address] [place] [address] PCP - General Family Medicine 03/06/23 Vicki Diego MD [address] [place] [address] Radiation Oncologist Radiation Oncology 03/06/23 Stevie Escobedo DO [address] [place] [address] Consulting Physician Hematology and Oncology 03/18/23 Production Editor Relationship Specialty Start Date End Date Marie Devi MD [address] [facility], [address] [place] [address] PCP - General Family Medicine 03/06/23 Vicki Diego MD [address] [place] [place] [address] Radiation Oncologist Radiation Oncology 03/06/23 Stevie Escobedo DO [address] [place] [place] [address] Consulting Physician Hematology and Oncology 03/18/23 Production Editor Relationship Specialty Start Date End Date Marie Devi MD [address] [facility], [facility] 1 [place] [address] PCP - General Family Medicine 03/06/23 Vicki Diego MD [address] [place] [place] [address] Radiation Oncologist Radiation Oncology 03/06/23 Stevie Escobedo DO [address] [place] [address] Consulting Physician Hematology and Oncology 03/18/23 Production Editor Relationship Specialty Start Date End Date Marie Devi MD [address] [facility], [facility] 1 [place] [address] PCP - General Family Medicine 03/06/23 Vicki Diego MD [address] [place] [address] Radiation Oncologist Radiation Oncology 03/06/23 Stevie Escobedo DO [address] [place] [address] Consulting Physician Hematology and Oncology 03/18/23 Production Editor Relationship Specialty Start Date End Date Marie Devi MD [address] [facility], [address] [place] [address] PCP - General Family Medicine 03/06/23 Vicki Diego MD [address] [place] [address] Radiation Oncologist Radiation Oncology 03/06/23 Stevie Escobedo DO [address] [place] [address] Consulting Physician Hematology and Oncology 03/18/23 Production Editor Relationship Specialty Start Date End Date Marie Devi MD [address] [facility], [address] [place] [address] PCP - General Family Medicine 03/06/23 Vicki Diego MD [address] [place] [address] Radiation Oncologist Radiation Oncology 03/06/23 Stevie Escobedo DO [address] [place] [address] Consulting Physician Hematology and Oncology 03/18/23 Production Editor Relationship Specialty Start Date End Date Marie Devi MD [address] [facility], [address] [place] [address] PCP - General Family Medicine 03/06/23 Vicki Diego MD [address] [place] [place] [address] Radiation Oncologist Radiation Oncology 03/06/23 Stevie Escobedo DO [address] [place] [place] [address] Consulting Physician Hematology and Oncology 03/18/23 Production Editor Relationship Specialty Start Date End Date Marie Devi MD [address] [facility], [address] [place], [place] [address] PCP - General Family Medicine 03/06/23 Vicki Diego MD [address] [place] [place] [address] Radiation Oncologist Radiation Oncology 03/06/23 Stevie Escobedo DO [address] [place] [place] [address] Consulting Physician Hematology and Oncology 03/18/23 Production Editor Relationship Specialty Start Date End Date Marie Devi MD [address] [facility], [address] [place] [address] PCP - General Family Medicine 03/06/23 Vicki Diego MD [address] [place] [address] Radiation Oncologist Radiation Oncology 03/06/23 Stevie Escobedo DO [address] [place] [address] Consulting Physician Hematology and Oncology 03/18/23 Production Editor Relationship Specialty Start Date End Date Marie Devi MD [address] [facility], [address] [place] [address] PCP - General Family Medicine 03/06/23 Vicki Diego MD [address] [place] [place] [address] Radiation Oncologist Radiation Oncology 03/06/23 Stevie Escobedo DO [address] [place] [address] Consulting Physician Hematology and Oncology 03/18/23 Production Editor Relationship Specialty Start Date End Date Marei Devi MD [address] [facility], [address] [place] [address] PCP - General Family Medicine 03/06/23 Vicki Diego MD [address] [place] [place] [address] Radiation Oncologist Radiation Oncology 03/06/23 Stevie Escobedo DO [address] [place] [place] [address] Consulting Physician Hematology and Oncology 03/18/23 Production Editor Relationship Specialty Start Date End Date Marie Devi MD [address] [facility], [address] [place] [address] PCP - General Family Medicine 03/06/23 Vicki Diego MD [address] [place] [place] [address] Radiation Oncologist Radiation Oncology 03/06/23 Stevie Escobedo DO [address] [place] [place] [address] Consulting Physician Hematology and Oncology 03/18/23 Production Editor Relationship Specialty Start Date End Date Marie Devi MD [address] [facility], [address] [place] [address] PCP - General Family Medicine 03/06/23 Vicki Diego MD [address] [place] [place] [address] Radiation Oncologist Radiation Oncology 03/06/23 Stevie Escobedo DO [address] [place] [place] [address] Consulting Physician Hematology and Oncology 03/18/23 Production Editor Relationship Specialty Start Date End Date Marie Devi MD [address] [facility], [address] [place] [address] PCP - General Family Medicine 03/06/23 Vicki Diego MD [address] [place] [place] [address] Radiation Oncologist Radiation Oncology 03/06/23 Stevie Escobedo DO [address] [place] [place] [address] Consulting Physician Hematology and Oncology 03/18/23 Production Editor Relationship Specialty Start Date End Date Marie Devi MD [address] [facility], [address] [place] [address] PCP - General Family Medicine 03/06/23 Vicki Diego MD [address] [place] [place] [address] Radiation Oncologist Radiation Oncology 03/06/23 Stevie Escobedo DO [address] [place] [place] [address] Consulting Physician Hematology and Oncology 03/18/23 Production Editor Relationship Specialty Start Date End Date aMrie Devi MD [address] [facility], [address] [place] [address] PCP - General Family Medicine 03/06/23 Vicki Diego MD [address] [place] [place] [address] Radiation Oncologist Radiation Oncology 03/06/23 Stevie Escobedo DO [address] [place] [place] [address] Consulting Physician Hematology and Oncology 03/18/23 Production Editor Relationship Specialty Start Date End Date Marie Devi MD [address] [facility], [address] [place] [address] PCP - General Family Medicine 03/06/23 Vicki Diego MD [address] [place] [place] [address] Radiation Oncologist Radiation Oncology 03/06/23 Stevie Escobedo DO [address] [place] [place] [address] Consulting Physician Hematology and Oncology 03/18/23 Production Editor Relationship Specialty Start Date End Date Marie Devi MD [address] [facility], [address] [place] [address] PCP - General Family Medicine 03/06/23 Vicki Diego MD [address] [place] [place] [address] Radiation Oncologist Radiation Oncology 03/06/23 Stevie Escobedo DO [address] [place] [place] [address] Consulting Physician Hematology and Oncology 03/18/23 Production Editor Relationship Specialty Start Date End Date Marie Devi MD [address] [facility], [address] [place], [place] [address] PCP - General Family Medicine 03/06/23 Vicki Diego MD [address] [place] [address] [place] [address] Radiation Oncologist Radiation Oncology 03/06/23 Stevie Escobedo DO [address] [place] [place] [address] Consulting Physician Hematology and Oncology 03/18/23 Production Editor Relationship Specialty Start Date End Date Marie Devi MD [address] [facility], [address] [place] [address] PCP - General Family Medicine 03/06/23 Vicki Diego MD [address] [place] [place] [address] Radiation Oncologist Radiation Oncology 03/06/23 Stevie Escobedo DO [address] [place] [place] [address] Consulting Physician Hematology and Oncology 03/18/23 Production Editor Relationship Specialty Start Date End Date Marie Devi MD [address] [facility], [address] [place] [address] PCP - General 08/19/12 Marie Devi MD [address] [facility], [address] [place] [address] PCP - [employer] Medicare Advantage PCP 06/23/21 Mirta Brody, pattern data operatorRv Service Technician 06/09/23 Production Editor Relationship Specialty Start Date End Date Marie Devi MD [address] [facility], [address] [place] [address] PCP - General Family Medicine 03/06/23 Vicki Diego MD [address] [place] [place] [address] Radiation Oncologist Radiation Oncology 03/06/23 Stevie Escobedo DO [address] [place] [address] Consulting Physician Hematology and Oncology 03/18/23 Production Editor Relationship Specialty Start Date End Date Marie Devi MD [address] [facility], [address] [place] [address] PCP - General Family Medicine 03/06/23 Vicki Diego MD [address] [place] [address] Radiation Oncologist Radiation Oncology 03/06/23 Stevie Escobedo DO [address] [place] [address] Consulting Physician Hematology and Oncology 03/18/23 Production Editor Relationship Specialty Start Date End Date Marie Devi MD [address] [facility], [address] [place] [address] PCP - General Family Medicine 03/06/23 Vicki Diego MD [address] [place] [address] Radiation Oncologist Radiation Oncology 03/06/23 Stevie Escobedo DO [address] [place] [address] Consulting Physician Hematology and Oncology 03/18/23 Production Editor Relationship Specialty Start Date End Date Marie Devi MD [address] [facility], [address] [place] [address] PCP - General Family Medicine 03/06/23 Vicki Diego MD [address] [place] [address] Radiation Oncologist Radiation Oncology 03/06/23 Stevie Escobedo DO [address] [place] [address] Consulting Physician Hematology and Oncology 03/18/23 Production Editor Relationship Specialty Start Date End Date Marie Devi MD [address] [facility], [address] [place] [address] PCP - General Family Medicine 03/06/23 Vicki Diego MD [address] [place] [address] Radiation Oncologist Radiation Oncology 03/06/23 Stevie Escobedo DO [address] [place] [address] Consulting Physician Hematology and Oncology 03/18/23 Production Editor Relationship Specialty Start Date End Date Marie Devi MD [address] [facility], [address] [place] [address] PCP - General Family Medicine 03/06/23 Vicki Diego MD [address] [place] [address] Radiation Oncologist Radiation Oncology 03/06/23 Stevie Escobedo DO [address] [place] [address] Consulting Physician Hematology and Oncology 03/18/23 Production Editor Relationship Specialty Start Date End Date Marie Devi MD [address] [facility], [address] [place] [address] PCP - General Family Medicine 03/06/23 Vicki Diego MD [address] [place], [place] [address] Radiation Oncologist Radiation Oncology 03/06/23 Stevie Escobedo DO [address] [place] [address] Consulting Physician Hematology and Oncology 03/18/23 Production Editor Relationship Specialty Start Date End Date Marie Devi MD [address] [facility], [address] [place], [place] [address] PCP - General Family Medicine 03/06/23 Vicki Diego MD [address] [place] [address] Radiation Oncologist Radiation Oncology 03/06/23 Stevie Escobedo DO [address] [place] [address] Consulting Physician Hematology and Oncology 03/18/23 Production Editor Relationship Specialty Start Date End Date Marie Devi MD [address] [facility], [address] [place], [place] [address] PCP - General 08/19/12 Marie Devi MD [address] [facility], [address] [place], [place] [address] PCP - [employer] Medicare Advantage PCP 06/23/21 Mirta Brody, pattern data operatorRv Service Technician 06/09/23 Production Editor Relationship Specialty Start Date End Date Marie Devi MD [address] [facility], [address] [place] [address] PCP - General 08/19/12 Marie Devi MD [address] [facility], [address] [place] [address] PCP - [employer] Medicare Advantage PCP 06/23/21 Mirta Brody, pattern data operatorRv Service Technician 06/09/23 Production Editor Relationship Specialty Start Date End Date Marie Devi MD [address] [facility], [address] [place] [address] PCP - General 08/19/12 Marie Devi MD [address] [facility], [address] [place] [address] PCP - [employer] Medicare Advantage PCP 06/23/21 Mirta Brody, pattern data operatorRv Service Technician 06/09/23 Production Editor Relationship Specialty Start Date End Date Marie Devi MD [address] [facility], [address] [place] [address] PCP - General Family Medicine 03/06/23 Vicki Diego MD [address] [facility] [address] [place] [address] Radiation Oncologist Radiation Oncology 03/06/23 Stevie Escobedo DO [address] [facility] [address] [place] [address] Consulting Physician Hematology and Oncology 03/18/23 Production Editor Relationship Specialty Start Date End Date Marie Devi MD [address] [facility], [address] [place] [address] PCP - General Family Medicine 03/06/23 Vicki Diego MD [address] [place] [address] Radiation Oncologist Radiation Oncology 03/06/23 Stevie Escobedo DO [address] [place] [address] Consulting Physician Hematology and Oncology 03/18/23 Production Editor Relationship Specialty Start Date End Date Marie Devi MD [address] [facility], [address] [place] [address] PCP - General Family Medicine 03/06/23 Vicki Diego MD [address] [facility], [address] [place] [address] Radiation Oncologist Radiation Oncology 03/06/23 Stevie Escobedo DO [address] [place] [address] Consulting Physician Hematology and Oncology 03/18/23 Production Editor Relationship Specialty Start Date End Date Marie Devi MD [address] [facility], [address] [place] [address] PCP - General Family Medicine 03/06/23 Vicki Diego MD [address] [facility], [address] [place] [address] Radiation Oncologist Radiation Oncology 03/06/23 Stevie Escobedo DO [address] [place], [place] [address] Consulting Physician Hematology and Oncology 03/18/23 Production Editor Relationship Specialty Start Date End Date Marie Devi MD [address] [facility], [address] [place] [address] PCP - General Family Medicine 03/06/23 Vicki Diego MD [address] [facility], [address] [place] [address] Radiation Oncologist Radiation Oncology 03/06/23 Stevie Escobedo DO [address] [place] [address] Consulting Physician Hematology and Oncology 03/18/23 Production Editor Relationship Specialty Start Date End Date Marie Devi MD [address] [facility], [address] [place] [address] PCP - General Family Medicine 03/06/23 Vicki Diego MD [address] [facility], [address] [place] [address] Radiation Oncologist Radiation Oncology 03/06/23 Stevie Escobedo DO [address] [place], [place] [address] Consulting Physician Hematology and Oncology 03/18/23 Production Editor Relationship Specialty Start Date End Date Marie Devi MD [address] [facility], [address] [place], [place] [address] PCP - General Family Medicine 03/06/23 Vicki Diego MD [address] [facility], [address] [place] [address] Radiation Oncologist Radiation Oncology 03/06/23 Stevie Escobedo DO [address] [place] [address] Consulting Physician Hematology and Oncology 03/18/23 Production Editor Relationship Specialty Start Date End Date Marie Devi MD PCP - General Family Medicine 07/16/13 Luana Montgomery MD [address] [place] [address] Referring Internal Medicine 06/08/23 Marie Devi MD [address] [facility] [address] [place] [address] Home Care Provider Family Medicine 06/09/23 Production Editor Relationship Specialty Start Date End Date Marie Devi MD [address] [facility], [address] [place] [address] PCP - General Family Medicine 03/06/23 Vicki Diego MD [address] [facility], [address] [place] [address] Radiation Oncologist Radiation Oncology 03/06/23 Stevie Escobedo DO [address] [place] [address] Consulting Physician Hematology and Oncology 03/18/23 Production Editor Relationship Specialty Start Date End Date Marie Devi MD [address] [facility], [address] [place] [address] PCP - General Family Medicine 03/06/23 Vicki Diego MD [address] [facility], [address] [place] [address] Radiation Oncologist Radiation Oncology 03/06/23 Stevie Escobedo DO [address] [facility] [address] [place] [address] Consulting Physician Hematology and Oncology 03/18/23 Production Editor Relationship Specialty Start Date End Date Marie Devi MD [address] [facility], [address] [place] [address] PCP - General 08/19/12 Marie Devi MD [address] [facility], [address] [place] [address] PCP - [employer] Medicare Advantage PCP 06/23/21 Ivanna Godinez MA Occupational Therapy AsstRv Service Technician 10/29/23 Production Editor Relationship Specialty Start Date End Date Marie Devi MD [address] [facility], [address] [place] [address] PCP - General Family Medicine 03/06/23 Vicki Diego MD [address] [facility], [address] [place] [address] Radiation Oncologist Radiation Oncology 03/06/23 Stevie Escobedo DO [address] [place] [address] Consulting Physician Hematology and Oncology 03/18/23 Production Editor Relationship Specialty Start Date End Date Marie Devi MD [address] [facility], [address] [place] [address] PCP - General Family Medicine 03/06/23 Vicki Diego MD [address] [facility], [facility] 1 [place] [address] Radiation Oncologist Radiation Oncology 03/06/23 Stevie Escobedo DO [address] [place] [address] Consulting Physician Hematology and Oncology 03/18/23 Production Editor Relationship Specialty Start Date End Date Marie Devi MD PCP - General Family Medicine 07/16/13 Luana Montgomery MD [address] [place] [address] Referring Internal Medicine 06/08/23 Marie Devi MD [address] [facility] [address] [place], [place] [address] Home Care Provider Family Medicine 06/09/23 Production Editor Relationship Specialty Start Date End Date Marie Devi MD PCP - General Family Medicine 07/16/13 Luana Montgomery MD [address] [place] [address] Referring Internal Medicine 06/08/23 Marie Devi MD [address] [facility] [place] [address] Home Care Provider Family Medicine 06/09/23 Production Editor Relationship Specialty Start Date End Date Marie Devi MD [address] [facility], [facility] 1 [place] [address] PCP - General Family Medicine 03/06/23 Vicki Diego MD [address] [facility], [facility] 1 [place] [address] Radiation Oncologist Radiation Oncology 03/06/23 Stevie Escobedo DO [address] [facility] [address] [place] [address] Consulting Physician Hematology and Oncology 03/18/23 Production Editor Relationship Specialty Start Date End Date Marie Devi MD PCP - General Family Medicine 07/16/13 Luana Montgomery MD [address] [place] [address] Referring Internal Medicine 06/08/23 Marie Devi MD [address] [facility] 1 [place] [address] Home Care Provider Family Medicine 06/09/23 Production Editor Relationship Specialty Start Date End Date Marie Devi MD PCP - General Family Medicine 07/16/13 Luana Montgomery MD [address] [place] [address] Referring Internal Medicine 06/08/23 Marie Devi MD [address] [place] [address] Home Care Provider Family Medicine 06/09/23 Yony Loredo, RN [address] [place] [address] Public Health Officer Post Acute Care 06/09/23 06/26/23 Production Editor Relationship Specialty Start Date End Date Marie Devi MD PCP - General Family Medicine 07/16/13 Luana Montgomery MD [address] [place] [address] Referring Internal Medicine 06/08/23 Marie Devi MD [address] [facility] [address] [place] [address] Home Care Provider Family Medicine 06/09/23 Yony Loredo, HANNAH [address] [place] [address] Public Health Officer Post Acute Care 06/09/23 06/26/23 Production Editor Relationship Specialty Start Date End Date Marie Devi MD [address] [facility], [address] [place] [address] PCP - General Family Medicine 03/06/23 Vicki Diego MD [address] [facility] [facility], [address] [place] [address] Radiation Oncologist Radiation Oncology 03/06/23 Stevie Escobedo DO [address] [place] [address] Consulting Physician Hematology and Oncology 03/18/23 Production Editor Relationship Specialty Start Date End Date Marie Devi MD [address] [facility], [address] [place] [address] PCP - General 08/19/12 Marie Devi MD [address] [facility], [address] [place] [address] PCP - [employer] Medicare Advantage PCP 06/23/21 Production Editor Relationship Specialty Start Date End Date Marie Devi MD [address] [facility], [address] [place] [address] PCP - General Family Medicine 03/06/23 Vicki Diego MD [address] [facility] [place] [address] Radiation Oncologist Radiation Oncology 03/06/23 Stevie Escobedo DO [address] [place] [address] Consulting Physician Hematology and Oncology 03/18/23 Production Editor Relationship Specialty Start Date End Date Leonardo Santos DO [address] [facility] [address] [place], [place] [id number] PCP - General Family Medicine 08/10/24 Vicki Diego MD Radiation Oncologist Radiation Oncology 03/06/23 Stevie Escobedo DO [address] [place] [address] Consulting Physician Hematology and Oncology 03/18/23 Production Editor Relationship Specialty Start Date End Date Marie Devi MD [address] [facility] [address] [place] [address] PCP - [employer] PCP 06/23/21 Leonardo Santos DO [address] [facility] [place] [address] PCP - General Family Medicine 08/12/24 Production Editor Relationship Specialty Start Date End Date Marie Devi MD PCP - General Family Medicine 07/16/13 Luana Montgomery MD [address] [place] [address] Referring Internal Medicine 06/08/23 Marie Devi MD [address] [place] [address] Home Care Provider Family Medicine 06/09/23 Production Editor Relationship Specialty Start Date End Date Marie Devi MD PCP - General Family Medicine 07/16/13 Luana Montgomery MD [address] [place] [address] Referring Internal Medicine 06/08/23 Marie Devi MD [address] [place] [address] Home Care Provider Family Medicine 06/09/23 Production Editor Relationship Specialty Start Date End Date Marie Devi MD PCP - General Family Medicine 07/16/13 Luana Montgomery MD [address] [place] [address] Referring Internal Medicine 06/08/23 Marie Devi MD [address] [place] [address] Home Care Provider Family Medicine 06/09/23 Production Editor Relationship Specialty Start Date End Date Marie Devi MD PCP - General Family Medicine 07/16/13 Luana Montgomery MD [address] [place] [address] Referring Internal Medicine 06/08/23 Marie Devi MD [address] [place] [address] Home Care Provider Family Medicine 06/09/23 Production Editor Relationship Specialty Start Date End Date Marie Devi MD PCP - General Family Medicine 07/16/13 Luana Montgomery MD [address] [place] [address] Referring Internal Medicine 06/08/23 Marie Devi MD [address] [place] [address] Home Care Provider Family Medicine 06/09/23 INFORMATION SOURCE (unrecogn ized section and content) DATE CREATED AUTHOR 01/12/2022 [employer] DATE CREATED AUTHOR AUTHOR'S ORGANIZ ATION 02/07/2023 [facility] DATE CREATED AUTHOR AUTHOR'S ORGANIZ ATION 12/19/2023 [facility] DATE CREATED AUTHOR AUTHOR'S ORGANIZ ATION 08/11/2024 [facility] DATE CREATED AUTHOR AUTHOR'S ORGANIZ ATION 09/19/2024 [facility] DATE CREATED AUTHOR AUTHOR'S ORGANIZ ATION 12/19/2024 [facility] DATE CREATED AUTHOR AUTHOR'S ORGANIZ ATION 12/22/2024 [facility] DATE CREATED AUTHOR AUTHOR'S ORGANIZ ATION 01/11/2025 [facility] DATE CREATED AUTHOR AUTHOR'S ORGANIZ ATION 01/12/2025 [facility] DATE CREATED AUTHOR AUTHOR'S ORGANIZ ATION 01/23/2025 [facility] FOR RECORDS PERTAINING TO PATIENTS [...] BE BASED ON THE PRIMARY CLINICAL RECORDS. [employer] [facility]. provides no warranty or guarantee of the accuracy or completeness of information in this document.
[2025-01-24 08:40] LABS: Mucous, Urine 0 SEEN /hpf (<or=2+); Squamous Epithelial Cells - UA 0 SEEN /hpf (5-10)
[2025-01-24 08:59] LABS: Hematocrit 39.8 % (37-47); Hemoglobin 12.9 g/dL (12.0-15.0); Immature Granulocytes Count 0.040 X10^3/uL (0.0-0.0); Mean Corp Hgb Conc 32.4 g/dL (32-36); Mean Corpuscular Volume 94.5 fL (81-99); Mean Platelet Vol. 10.2 fl (6.2-12.0); NRBC Flagged by Analyzer 0 % (0-5); Platelet Count 197 K/mm3 (150-450); RBC Distribution Width CV 14.3 % (11.6-14.6); RBC Distribution Width SD 49.2 fl (35.1-43.9); Red Blood Count 4.21 M/mm3 (4.2-5.4); White Blood Count 7.6 K/mm3 (4.4-11.0)
[2025-01-24 09:06] LABS: Color, Urine Yellow (Yellow); Glucose, Dipstick Normal (Normal); Ketone-Dipstick Negative (Negative); Leukocyte Esterase-Dipstick 100 /ul (Negative); Nitrite-Dipstick Positive (Negative); Occult Blood-Urine 150 /ul (Negative); Protein-Dipstick 100 mg/dl (Negative); Specific Gravity, Urine 1.025 (1.002-1.030); Urine Bilirubin Dipstick Negative (Negative)
[2025-01-24 09:16] LABS: AST(SGOT) 21 U/L (<=31); Alanine Aminotransfer ALT/SGPT 18 U/L (<=34); Albumin, Serum 3.6 g/dL (3.4-4.8); Alkaline Phosphatase 96 U/L (35-104); Anion Gap 13 (5-15); BUN 19 mg/dL (4-19); BUN/Creat Ratio 24.1 RATIO (10-20); Calcium,Total 9.1 mg/dL (7.6-11.0); Carbon Dioxide 24.9 mmol/L (21.0-32.0); Chloride 104 mmol/L (98-108); Globulin 2.5 g/dL (2.2-4.2); Glucose 92 mg/dL (70-99); Potassium 4.0 mmol/L (3.3-5.1)
[2025-01-24 09:20] LABS: Red Blood Cells-Urine 0-5 SEEN /hpf (0-5); Triple Phosphate Crystals Ur RARE /hpf (<or=1+)
== END ==
LOC: OLS.ACH 05:00
DX: G20.A1 Parkinson's disease without dyskinesia, without mention of fluctuations (principal); R41.841 Cognitive communication deficit
CPT/HCPCS: 36415; 80053; 81001; 85025; 87077; 87086; 87088; 87186

== ENCOUNTER → 2025-03-22 05:00 | Outpatient (REF) | payer MEDICARE, SELFPAY ==
[2025-03-22 09:40] LABS: AST(SGOT) 19 U/L (<=31); Alanine Aminotransfer ALT/SGPT 12 U/L (<=34); Albumin, Serum 3.7 g/dL (3.4-4.8); Alkaline Phosphatase 85 U/L (35-104); Anion Gap 12 (5-15); BUN 18 mg/dL (4-19); BUN/Creat Ratio 25.5 RATIO (10-20); Calcium,Total 9.0 mg/dL (7.6-11.0); Carbon Dioxide 25.8 mmol/L (21.0-32.0); Chloride 104 mmol/L (98-108); Globulin 2.3 g/dL (2.2-4.2); Glucose 97 mg/dL (70-99); Potassium 4.1 mmol/L (3.3-5.1)
[2025-03-22 09:52] LABS: Hematocrit 39.8 % (37-47); Hemoglobin 13.3 g/dL (12.0-15.0); Mean Corp Hgb Conc 33.4 g/dL (32-36); Mean Corpuscular Volume 93.2 fL (81-99); Mean Platelet Vol. 9.9 fl (6.2-12.0); Platelet Count 200 K/mm3 (150-450); RBC Distribution Width CV 14.5 % (11.6-14.6); RBC Distribution Width SD 49.6 fl (35.1-43.9); Red Blood Count 4.27 M/mm3 (4.2-5.4); White Blood Count 6.7 K/mm3 (4.4-11.0)
== END ==
LOC: OLS.ACH 05:00
PROVIDERS: Visit Provider Internal Medicine
DX: D64.9 Anemia, unspecified (principal); G40.919 Epilepsy, unspecified, intractable, without status epilepticus
CPT/HCPCS: 36415; 80053; 84443; 85027

== ENCOUNTER → 2025-04-12 05:00 | Outpatient (REF) | payer MEDICARE, SELFPAY ==
--- OUTSIDE RECORDS SUMMARY | 2025-04-12 03:55 | XMS RPT_ITS | CCD ---
Author Organization [facility] Care Team Providers Care Logistics Engineer Name Role Phone Marie Devi Unavailable Unavailable [...] Unavailable Marie Devi MD Primary Care Provider Jarrell Diego MD Unavailable Fuentes DOesa E Unavailable Mary Grace YOUNG, Mirta Unavailable Unavailable Jarrell Diego MD Unavailable Vanessa GRAFF Stevie E Unavailable Marie Devi MD [...] Care Provider MARIE DEVI Primary Care Unavailable VANESSA, STEVIE Attending Unavailable DULMARIE ARROYO Primary Care Unavailable VANESSA, STEVIE Referring Unavailable VANESSA, STEVIE Attending Unavailable DULDINA, MARIE Primary Care Unavailable VANESSA, STEVIE Referring Unavailable STANEC, CRISTINA Primary Care Unavailable VANESSA, STEVIE Attending Unavailable DULDINA, MARIE Primary Care Unavailable VANESSA, STEVIE Attending Unavailable VANESSA, STEVIE Attending Unavailable DULLE, MARIE Primary Care Unavailable VANESSA, STEVIE Attending Unavailable DULLE, MARIE Primary Care Unavailable VANESSA, STEVIE Referring Unavailable VANESSA, STEVIE Attending Unavailable DULDINA, MARIE Primary Care Unavailable VANESSA, STEVIE Referring Unavailable VANESSA, STEVIE Attending Unavailable DULIDNA, MARIE Primary Care Unavailable DULDINA, MARIE Primary Care Unavailable DONCALSJARRELL Attending Unavailable VANESSA, STEVIE Referring Unavailable DONCALJARRELL Baxter Attending Unavailable MARIE DEVI Primary Care Unavailable VANESSA, STEVIE Attending Unavailable DULDINA, MARIE Primary Care Unavailable VANESSA, STEVIE Referring Unavailable VANESSA, STEVIE Attending Unavailable MICHAEL, MARIE Primary Care Unavailable VANESSA, STEVIE Referring Unavailable Jarrell Diego MD Unavailable Stanec DO, Cristina Primary Care Provider Marie Devi MD Unavailable Stanjohnnie DO, Cristina R Primary Care Provider [phone] MARIE DEVI Primary Care Unavailable GRACY, DANAY Referring Unavailable TIO, AGNIESZKAON Attending Unavailable ANAHI PLOANCO Admitting Unavailable MARIE DEVI Primary Care Unavailable KELTON TAYLOR Consulting Unavailable MARIE DEVI Attending Unavailable MARIE DEVI Primary Care Unavailable AURELIA, CRISTINA R Attending Unavailable AURELIA, CRISTINA R Primary Care Unavailable Marie Devi MD Primary Care Provider Marie Devi MD Unavailable MARIE DEVI Primary Care Unavailable TORRIE CHOI Attending Unavailable RACHEAL DE LA ROSA Referring Unavailable MARIE DEVI Primary Care Unavailable SARA RAMEY Attending Unavailable MARIE DEVI Primary Care Unavailable SARA RAMEY Referring Unavailable Shant Christensen Attending Unavailable Azam Gonzalez Attending Unavailable Leticia CABRERA, Azam Attending Unavailable Shant Christensen Attending Unavailable [facility] Attending Rudi berg Allergies Allergy Classification Reported Allergen(s) Allergy Type Date of Onset Reaction(s) Facility Alendronate (3 sources) Alendronate; Translations: [Fosamax] Drug Allergy [facility] Work Phone: Cephalosporins (antibiotic) (3 sources) Cephalexin; Translations: [Keflex TABS] Drug Allergy [facility] Work Phone: Penicillins (antibiotic) (3 sources) Penicillins; Translations: [Penicillins] Drug Allergy [facility] Work Phone: pregabalin (3 sources) pregabalin; Translations: [Lyrica CAPS] Drug Allergy [facility] Work Phone: Serotonin Reuptake Inhibitors (SSRIs) (3 sources) Escitalopram Drug Allergy [facility] Work Phone: [phone] (11 sources) Alendronate; Translations: [Fosamax] Drug Allergy [facility] Work Phone: (20 sources) Aspirin; Translations: [Adult Aspirin Low Strength TBDP] Drug Allergy 10-31-19 23 Other [facility] Work Phone: [phone] (20 sources) Cephalexin; Translations: [Keflex TABS] Drug Allergy 05-07-20 10 [facility] Work Phone: (11 sources) Escitalopram Drug Allergy [facility] Work Phone: [phone] (16 sources) Penicillins; Translations: [Penicillins] Allergy to drug (finding) 05-12-20 10 [facility] (20 sources) pregabalin; Translations: [Lyrica CAPS] Drug Allergy 05-07-20 10 Unknown [facility] Work Phone: (20 sources) Alendronate; Translations: [ALENDRONIC ACID] Drug Allergy 05-07-20 10 Unknown, Other [facility] Work Phone: (20 sources) nickel; Translations: [NICKEL] Drug Allergy 05-07-20 10 Unknown [facility] Work Phone: (2 sources) Penicillins Drug Allergy 05-12-20 10 Unknown [facility] Work Phone: (20 sources) Salicylic Acid; Translations: [SALICYLATES] Drug Allergy 05-07-20 10 Unknown, [facility] Work Phone: (17 sources) CONTRAST DYE MRI [Other] Propensity to adverse reactions 06-14-20 10 [facility] (14 sources) Escitalopram; Translations: [ESCITALOPRAM OXALATE] Drug Allergy 10-25-19 23 [facility] Work Phone: (20 sources) Penicillins Drug Allergy 05-12-20 10 [facility] Work Phone: (12 sources) Salicylic Acid Drug Allergy 05-07-20 10 [facility] Work Phone: (20 sources) Iodinated Contrast Media; Translations: [IODINATED CONTRAST MEDIA] Drug Intolerance 06-14-20 10 [facility] Work Phone: (20 sources) Salicylate product Propensity to adverse reactions to drug 05-07-20 10 [facility] Work Phone: (20 sources) Alendronate Drug Allergy 05-07-20 10 Unknown, Other [email or web address] (20 sources) Escitalopram Drug Allergy 10-25-19 23 Other, Unknown [email or web address] (20 sources) Gadolinium Drug Allergy 03-06-20 [facility] (20 sources) Iodine; Translations: [IODINE] Drug Allergy 03-06-20 [email or web address] (20 sources) nickel sulfate Drug Allergy 05-07-20 10 Unknown [email or web address] (20 sources) Penicillins Drug Allergy 05-12-20 10 Unknown [facility] (20 sources) Pregabalin; Translations: [PREGABALIN] Allergy to substance 05-07-20 Unknown [facility] (7 sources) Prednisone & Diphenhydramine Drug Allergy 03-06-20 Unknown [facility] (10 sources) Acetaminophen / HYDROcodone; Translations: [HYDROCODONE-ACETA MINOPHEN] Drug Allergy 08-14-19 12 Nausea/vomitin g [facility] (2 sources) Aspirin; Translations: [ASPIRIN] Drug Allergy 10-31-19 [facility] (5 sources) Cephalexin; Translations: [CEPHALEXIN] Drug Allergy 05-07-20 [facility] (7 sources) Penicillins Drug Allergy 05-12-20 10 Unknown [facility] Work Phone: Medications Current Medications Medication [...] Start: 08-18-2018 take 1 capsule by mo [facility] once daily DULoxetine HCl - 20 MG [...] daily. Active gabapentin 100 mg oral capsule (6 sources) Anti-epileptic Agent Start: 12-11-19 End: 01-10-20 take 1 capsule by mouth every twelve hours gabapentin (NEURONTIN) 100 mg capsule Take 1 capsule by mouth every 12 hours for 30 days. 12/10/2024 Active levETIRAcetam 500 mg oral tablet (6 sources) Start: 12-11-19 take 1 tablet by [...] Take 1 tablet by iqra every afternoon. losartan potassium 50 mg oral tablet (5 sources) Angiotensin 2 Receptor Kesha take 1 tablet by mouth once daily losartan (COZAAR) 50 mg tablet Take 50 mg by mouth once daily. Active memantine hydrochloride 10 mg oral tablet (20 sources) Z-ubkrzp-A-aspartate Receptor Antagonist Start: 3 take 1 tablet by mouth once daily memantine (NAMENDA) 10 mg tablet Take 10 mg by mouth once daily. 06/12/2023 Active Start: 02-26-2023 take 1 tablet by iqra twice daily memantine (Namenda) 10 MG tablet [...] mouth in the morning. Active Multivitamin capsule (19 sources) take 1 capsule by mouth once daily Multivitamin capsule Take 1 capsule by mouth once daily. Active take 1 capsule by mouth once pat ly Multivitamin capsule Take 1 capsule by mouth once daily. 0 Active Comment on above: Take 1 capsule by mo uth once daily. ondansetron 8 mg oral tablet (20 sources) Serotonin-3 Receptor Antagonist Start: End: take 1 tablet by mouth every [...] mouth daily. 10/28/2023 Active polyethylene glycol 3350 58596 mg powder for oral solution (8 sources) Osmotic Laxative Start: 10-28-2023 End: 11-11-2023 polyethylene glycol 3350 17 gram packet Take 17 g by mouth. 10/28/2023 Active predniSONE 20 mg oral tablet (7 sources) Start: 12-11-2024 take 3 tablets by [...] uth every six hours as needed acetaminophen (TYLENOL) [...] mc y cholecalciferol (Vitamin D-3) 50 MCG (2000 UT) [...] completed) Start: 07-17-2022 take 1 capsule by [facility] once daily Doxycycline Hyclate 50 MG Oral [...] uterus, part unspecified] Onset: 4 06-26-2023 Chronic Deficiency and other anemia (1 source) Anemia, unspecified; Translations: [Anemia, unspecified] Onset: 5 Episodic E Codes: Adverse effects of medical drugs (1 source) Toxicity due to chemotherapy; Translations: [Adverse effect of antineoplastic and immunosuppressive drugs, initial encounter] 06-30-2023 Episodic Epilepsy; convulsions (1 source) Epilepsy, unspecified, intractable, without status epilepticus; Translations: [Epilepsy, unspecified, intractable, without status epilepticus] Onset: 5 Chronic Fluid and electrolyte disorders (1 source) Dehydration; Translations: [Dehydration] 06-30-2023 Episodic Headache; including migraine (7 sources) Cervicogenic headache; Translations: [Cervicogenic headache] Onset: [...] circulatory system] 01-07-2025 Episodic Other circulatory disease (8 sources) History of cerebrovascular accident; Translations: [Personal [...] sources) Hypoxia; Translations: [Nocturnal hypoxemia] Episodic Other nervous system disorders (1 source) Cognitive communication deficit; Translations: [Cognitive communication deficit] Onset: 5 Chronic Other nutritional; endocrine; and metabolic disorders (20 [...] Systemic lupus erythematosus and connective tissue disorders (7 sources) Other giant cell arteritis; Translations: [Temporal [...] 02-05-2023 Episodic Diseases of white blood cells (18 sources) Febrile neutropenia; Translations: [Neutropenia, unspecified] Onset: 06-05-2023 Resolved: 12-10-2024 06-08-2023 Chronic Fever of unknown origin (12 sources) Fever; Translations: [Fever, unspecified] Onset: 06-05-2023 [...] 02-05-2023 Episodic Other aftercare (2 sources) Other predatory animal exterminator (current) drug therapy; Translations: [Other retirement (current) drug therapy] Onset: 09-18-2023 Episodic Other aftercare (2 sources) termite treater helper (current) use of aromatase inhibitors; Translations: [termite treater helper (current) use of aromatase inhibitors] Onset: 09-05-2023 [...] Onset: 02-05-2023 Episodic Other nervous system disorders (12 sources) Toxic encephalopathy; Translations: [Toxic encephalopathy] Onset: 10-09-2023 10-09-2023 Episodic Other nutritional; endocrine; and metabolic disorders (12 sources) Adult failure to thrive syndrome; Translations: [...] caused by tuberculosis or sexually transmitted disease) (20 sources) Infective pneumonia; Translations: [Pneumonia, unspecified organism] [...] (ER+)] Onset: 03-18-2023 Episodic Residual codes; unclassified (6 sources) Confusional state; Translations: [Disorientation, unspecified] Onset: 12-03-2024 Resolved: 12-10-2024 12-10-2024 Episodic Residual codes; unclassified (12 sources) Altered mental status; Translations: [Altered mental status, unspecified] Onset: 12-05-2024 Resolved: 12-10-2024 12-10-2024 Episodic Residual codes; unclassified (3 sources) Immunization due; Translations: [Immunization due] Respiratory failure; insufficiency; arrest (adult) (12 sources) Acute respiratory failure; Translations: [Acute respiratory [...] [Parkinsonism, unspecified (Multi)] Onset: 02-18-2024 Viral infection (13 sources) COVID-19; Translations: [Pneumonia due to other virus not elsewhere classified] Onset: 10-08-2023 10-09-2023 Episodic NEGATED: Highlighted row has not occurred!Residual codes; unclassified (13 sources) Disease Episodic Results Test Name Value Interpretation Reference Range Facility CBC-Complete Blood Cnt No Di ffon 03-22-2025 Erythrocyte distribution width (RBC) [Ratio] 14.5 % Normal 11.6-14.6 [facility] Comment on above: Order Comment: . Performed By: #### L 500.4050, L501.9520, L100.0500 #### [facility] [address] [place], [address] Hematocrit (Bld) [Volume fraction] 39.8 % Normal 37-47 [facility] Comment on above: Order Comment: .1 Performed By: #### L 500.4050, L501.9520, L100.0500 #### [facility] [address] [place], [address] Hemoglobin (Bld) [Mass/Vol] 13.3 g/dL Normal 12.0-15.0 [facility] Comment on above: Order Comment: . Performed By: #### L 500.4050, L501.9520, L100.0500 #### [facility] [address] [place], [address] MCH (RBC) [Entitic mass] 31.1 pg Normal 27.0-32.0 [facility] Comment on above: Order Comment: . Performed By: #### L 500.4050, L501.9520, L100.0500 #### [facility] [address] [place], [address] MCHC (RBC) [Mass/Vol] 33.4 g/dL Normal 32-36 [facility] Comment on above: Order Comment: . Performed By: #### L 500.4050, L501.9520, L100.0500 #### [facility] [address] [place], [address] MCV (RBC) [Entitic vol] 93.2 fL Normal 81-99 [facility] Comment on above: Order Comment: . Performed By: #### L 500.4050, L501.9520, L100.0500 #### [facility] [address] [place], [address] Platelet mean volume (Bld) [Entitic vol] 9.9 fL Normal 6.2-12.0 [facility] Comment on above: Order Comment: . Performed By: #### L 500.4050, L501.9520, L100.0500 #### [facility] [address] [place], [address] Platelets (Bld) [#/Vol] 200 10*3/uL Normal 150-450 [facility] Comment on above: Order Comment: . Performed By: #### L 500.4050, L501.9520, L100.0500 #### [facility] [address] [place], [address] RBC (Bld) [#/Vol] 4.27 10*6/uL Normal 4.2-5.4 [facility] Comment on above: Order Comment: 209.1 Performed By: #### L 500.4050, L501.9520, L100.0500 #### [facility] [address] [place], [address] RDW SD 49.6 fl High 35.1-43.9 [facility] Comment on above: Order Comment: 209.1 Performed By: #### L 500.4050, [id number], L100.0500 #### [facility] [address] [place], [address] WBC (Bld) [#/Vol] 6.7 10*3/uL Normal 4.4-11.0 [facility] Comment on above: Order Comment: .1 Performed By: #### L 500.4050, L501.9520, L100.0500 #### [facility] [address] [place], [address] Comprehensive Metabolic Prof [facility] 03-22-2025 Albumin [Mass/Vol] 3.7 g/dL Normal 3.4-4.8 [facility] Comment on above: Order Comment: 209.1 Performed By: #### L 500.4050, [id number], L100.0500 #### [facility] [address] [place], [address] Albumin/Globulin [Mass ratio] 1.6 {ratio} Normal 0.9-2.4 [facility] Comment on above: Order Comment: 209.1 Performed By: #### L 500.4050, L501.9520, L100.0500 #### [facility] [address] [place], [address] ALK PHOS 85 U/L Normal 35-104 [facility] Comment on above: Order Comment: 209.1 Performed By: #### L 500.4050, [id number], L100.0500 #### [facility] [address] [place], [address] ALT [Catalytic activity/Vol] 12 U/L Normal <=34 [facility] Comment on above: Order Comment: 209.1 Performed By: #### L 500.4050, [id number], L100.0500 #### [facility] [address] [place], [address] AST [Catalytic activity/Vol] 19 U/L Normal <=31 [facility] Comment on above: Order Comment: .1 Performed By: #### L 500.4050, [id number], L100.0500 #### [facility] [address] [place], [address] Bilirubin [Mass/Vol] 0.41 mg/dL Normal 0.00-1.30 [facility] Comment on above: Order Comment: .1 Performed By: #### L 500.4050, [id number], L100.0500 #### [facility] [address] [place], [address] BUN/CRE 25.5 RATIO High 10-20 [facility] Comment on above: Order Comment: 209.1 Performed By: #### L 500.4050, [id number], L100.0500 #### [facility] [address] [place], [address] Calcium [Mass/Vol] 9.0 mg/dL Normal 7.6-11.0 [facility] Comment on above: Order Comment: 209.1 Performed By: #### L 500.4050, L501.9520, L100.0500 #### [facility] [address] [place], [address] Chloride [Moles/Vol] 104 mmol/L Normal 98-108 [facility] Comment on above: Order Comment: 209.1 Performed By: #### L 500.4050, L501.9520, L100.0500 #### [facility] [address] [place], [address] CO2 [Moles/Vol] 25.8 mmol/L Normal 21.0-32.0 [facility] Comment on above: Order Comment: 209.1 Performed By: #### L 500.4050, [id number], L100.0500 #### [facility] [address] [place], [address] Creatinine [Mass/Vol] 0.72 mg/dL Normal 0.70-1.20 [facility] Comment on above: Order Comment: . Performed By: #### L 500.4050, [id number], L100.0500 #### [facility] [address] [place], [address] GAP 12 Normal 5-15 [facility] Comment on above: Order Comment: . Performed By: #### L 500.4050, [id number], L100.0500 #### [facility] [address] [place], [address] GFR/1.73 sq M.predicted among non-blacks MDRD (S/P/Bld) [Vol rate/Area] 85 mL/min/{1.73_m2} Normal >60 [facility] Comment on above: Order Comment: .1 Result Comment: mL/m in/1.73m2 CKD-EPI Creatinine Equation (2020) Performed By: #### L 500.4050, L501.9520, L100.0500 #### [facility] [address] [place], [address] Globulin (S) [Mass/Vol] 2.3 g/dL Normal 2.2-4.2 [facility] Comment on above: Order Comment: .1 Performed By: #### L 500.4050, [id number], L100.0500 #### [facility] [facility] [address] [place], [address] Glucose [Mass/Vol] 97 mg/dL Normal 70-99 [facility] Comment on above: Order Comment: 209.1 Performed By: #### L 500.4050, L501.9520, L100.0500 #### [facility] [address] [place], [address] Potassium [Moles/Vol] 4.1 mmol/L Normal 3.3-5.1 [facility] Comment on above: Order Comment: 209.1 Performed By: #### L 500.4050, L501.9520, L100.0500 #### [facility] [address] [place], [address] Sodium [Moles/Vol] 141 mmol/L Normal 133-145 [facility] Comment on above: Order Comment: 209.1 Performed By: #### L 500.4050, L501.9520, L100.0500 #### [facility] [address] [place], [address] T PROT 6.0 g/dL Normal 5.9-8.4 [facility] Comment on above: Order Comment: 209.1 Performed By: #### L 500.4050, L501.9520, L100.0500 #### [facility] [address] [place], [address] Urea nitrogen [Mass/Vol] 18 mg/dL Normal 4-19 [facility] Comment on above: Order Comment: 209.1 Performed By: #### L 500.4050, L501.9520, L100.0500 #### [facility] [address] [place], [address] Thyroid Stim Hormone (TSH)on 03-22-2025 TSH 2.340 uIU/mL Normal 0.300-4.200 [facility] Comment on above: Order Comment: 209.1 Performed By: #### L 500.4050, L501.9520, L100.0500 #### [facility] [address] [place], [address] Urine Cultureon 01-26-2025 [facility] Proteus mirabilis Hadley Count >100,000 Proteus mirabilis: REACTION Ampicillin Islt JUDITH <=2 Ampicillin+Sulbac Islt JUDITH <=2 S Cefepime Islt JUDITH <=0.12 S cefTRIAXone Islt JUDITH <=0.25 S Ciprofloxacin Islt JUDITH <=0.06 S Gentamicin Islt JUDITH <=1 S levoFLOXacin Islt JUDITH <=0.12 S Meropenem Islt JUDITH <=0.25 S Nitrofurantoin Islt JUDITH 128 R Pip+Tazo Islt JUDITH <=4 S TMP SMX Islt JUDITH <=20 S Normal [facility] Comment on above: Performed By: #### L 400.0001, M100.2200 #### [facility] [address] [place], [address] CBC W/Diff, Automatedon 080 Absolute Lymph 1.38 X10 3/uL Normal 0.83-4.51 [facility] Comment on above: Order Comment: Performed By: #### L 500.4050, L100.0100 #### [facility] [address] [place], [address] Absolute Neut 5.3 X10 3/uL Normal 2.0-7.7 [facility] Comment on above: Order Comment: Performed By: #### L 500.4050, L100.0100 #### [facility] [address] [place], [address] Basophils/100 WBC (Bld) 0.7 % Normal 0-1 [facility] Comment on above: Order Comment: Performed By: #### L 500.4050, L100.0100 #### [facility] [address] [place], [address] Eosinophils/100 WBC (Bld) 2.1 % Normal 0-5 [facility] Comment on above: Order Comment: Performed By: #### L 500.4050, L100.0100 #### [facility] [address] [place], [address] Erythrocyte distribution width (RBC) [Ratio] 14.3 % Normal 11.6-14.6 [facility] Comment on above: Order Comment: Performed By: #### L 500.4050, L100.0100 #### [facility] [address] [place], [address] Hematocrit (Bld) [Volume fraction] 39.8 % Normal 37-47 [facility] Comment on above: Order Comment: Performed By: #### L 500.4050, L100.0100 #### [facility] [address] [place], [address] Hemoglobin (Bld) [Mass/Vol] 12.9 g/dL Normal 12.0-15.0 [facility] Comment on above: Order Comment: Performed By: #### L 500.4050, L100.0100 #### [facility] [address] [place], [address] IG% 0.500 Normal 0.0-0.9 [facility] Comment on above: Order Comment: Result Comment: IG% - Immature Granulocytes (promyelocytes, myelocytes and metamyelocytes) > 1% indicates that a LEFT SHIFT is Present. Performed By: #### L 500.4050, L100.0100 #### [facility] [address] [place], [address] Lymphocytes/100 WBC (Bld) 18.1 % Low 19-41 [facility] Comment on above: Order Comment: Performed By: #### L 500.4050, L100.0100 #### [facility] [address] [place], [address] MCH (RBC) [Entitic mass] 30.6 pg Normal 27.0-32.0 [facility] Comment on above: Order Comment: Performed By: #### L 500.4050, L100.0100 #### [facility] [address] [place], [address] MCHC (RBC) [Mass/Vol] 32.4 g/dL Normal 32-36 [facility] Comment on above: Order Comment: Performed By: #### L 500.4050, L100.0100 #### [facility] [address] [place], [address] MCV (RBC) [Entitic vol] 94.5 fL Normal 81-99 [facility] Comment on above: Order Comment: Performed By: #### L 500.4050, L100.0100 #### [facility] [address] [place], [address] Monocytes/100 WBC (Bld) 8.5 % Normal 0-10 [facility] Comment on above: Order Comment: Performed By: #### L 500.4050, L100.0100 #### [facility] [address] [place], [address] Neutrophils/100 WBC (Bld) 70.1 % High 47-70 [facility] Comment on above: Order Comment: Performed By: #### L 500.4050, L100.0100 #### [facility] [address] [place], [address] Nucleated RBC (Bld) [#/Vol] 0 10*3/uL Normal 0-5 [facility] Comment on above: Order Comment: Performed By: #### L 500.4050, L100.0100 #### [facility] [address] [place], [address] Platelet mean volume (Bld) [Entitic vol] 10.2 fL Normal 6.2-12.0 [facility] Comment on above: Order Comment: - Performed By: #### L 500.4050, L100.0100 #### [facility] [address] [place], [address] Platelets (Bld) [#/Vol] 197 10*3/uL Normal 150-450 [facility] Comment on above: Order Comment: - Performed By: #### L 500.4050, L100.0100 #### [facility] [address] [place], [address] RBC (Bld) [#/Vol] 4.21 10*6/uL Normal 4.2-5.4 [facility] Comment on above: Order Comment: - Performed By: #### L 500.4050, L100.0100 #### [facility] [address] [place], [address] RDW SD 49.2 fl High 35.1-43.9 [facility] Comment on above: Order Comment: - Performed By: #### L 500.4050, L100.0100 #### [facility] [address] [place], [address] WBC (Bld) [#/Vol] 7.6 10*3/uL Normal 4.4-11.0 [facility] Comment on above: Order Comment: - Performed By: #### L 500.4050, L100.0100 #### [facility] [address] [place], [address] Comprehensive Metabolic Prof ilon 01-24-2025 Albumin [Mass/Vol] 3.6 g/dL Normal 3.4-4.8 [facility] Comment on above: Order Comment: - Performed By: #### L 500.4050, L100.0100 #### [facility] [address] [place], [address] Albumin/Globulin [Mass ratio] 1.4 {ratio} Normal 0.9-2.4 [facility] Comment on above: Order Comment: - Performed By: #### L 500.4050, L100.0100 #### [facility] [address] [place], [address] ALK PHOS 96 U/L Normal 35-104 [facility] Comment on above: Order Comment: - Performed By: #### L 500.4050, L100.0100 #### [facility] [address] [place], [address] ALT [Catalytic activity/Vol] 18 U/L Normal <=34 [facility] Comment on above: Order Comment: Performed By: #### L 500.4050, L100.0100 #### [facility] [address] [place], [address] AST [Catalytic activity/Vol] 21 U/L Normal <=31 [facility] Comment on above: Order Comment: Performed By: #### L 500.4050, L100.0100 #### [facility] [address] [place], [address] Bilirubin [Mass/Vol] 0.51 mg/dL Normal 0.00-1.30 [facility] Comment on above: Order Comment: - Performed By: #### L 500.4050, L100.0100 #### [facility] [address] [place], [address] BUN/CRE 24.1 RATIO High 10-20 [facility] Comment on above: Order Comment: - Performed By: #### L 500.4050, L100.0100 #### [facility] [address] [place], [address] Calcium [Mass/Vol] 9.1 mg/dL Normal 7.6-11.0 [facility] Comment on above: Order Comment: Performed By: #### L 500.4050, L100.0100 #### [facility] [address] [place], [address] Chloride [Moles/Vol] 104 mmol/L Normal 98-108 [facility] Comment on above: Order Comment: Performed By: #### L 500.4050, L100.0100 #### [facility] [address] [place], [address] CO2 [Moles/Vol] 24.9 mmol/L Normal 21.0-32.0 [facility] Comment on above: Order Comment: Performed By: #### L 500.4050, L100.0100 #### [facility] [address] [place], [address] Creatinine [Mass/Vol] 0.78 mg/dL Normal 0.70-1.20 [facility] Comment on above: Order Comment: Performed By: #### L 500.4050, L100.0100 #### [facility] [address] [place], [address] GAP 13 Normal 5-15 [facility] Comment on above: Order Comment: Performed By: #### L 500.4050, L100.0100 #### [facility] [address] [place], [address] GFR/1.73 sq M.predicted among non-blacks MDRD (S/P/Bld) [Vol rate/Area] 78 mL/min/{1.73_m2} Normal >60 [facility] Comment on above: Order Comment: Result Comment: mL/m in/1.73m2 CKD-EPI Creatinine Equation (2020) Performed By: #### L 500.4050, L100.0100 #### [facility] [address] [place], [address] Globulin (S) [Mass/Vol] 2.5 g/dL Normal 2.2-4.2 [facility] Comment on above: Order Comment: -1 Performed By: #### L 500.4050, L100.0100 #### [facility] [address] [place], [address] Glucose [Mass/Vol] 92 mg/dL Normal 70-99 [facility] Comment on above: Order Comment: -1 Performed By: #### L 500.4050, L100.0100 #### [facility] [address] [place], [address] Potassium [Moles/Vol] 4.0 mmol/L Normal 3.3-5.1 [facility] Comment on above: Order Comment: - Performed By: #### L 500.4050, L100.0100 #### [facility] [address] [place], [address] Sodium [Moles/Vol] 142 mmol/L Normal 133-145 [facility] Comment on above: Order Comment: - Performed By: #### L 500.4050, L100.0100 #### [facility] [address] [place], [address] T PROT 6.1 g/dL Normal 5.9-8.4 [facility] Comment on above: Order Comment: -1 Performed By: #### L 500.4050, L100.0100 #### [facility] [address] [place], [address] Urea nitrogen [Mass/Vol] 19 mg/dL Normal 4-19 [facility] Comment on above: Order Comment: -1 Performed By: #### L 500.4050, L100.0100 #### [facility] [address] [place], [address] Urinalysis, Completeon 01-24 BACTERIA 3+ /hpf Normal None Seen [facility] Comment on above: Order Comment: CLEAN CATCH Performed By: #### L 400.0001, M100.2200 #### [facility] [address] [place], [address] RBC 0-5 SEEN Normal 0-5 [facility] Comment on above: Order Comment: CLEAN CATCH Performed By: #### L 400.0001, M100.2200 #### [facility] [address] [place], [address] TRIPLE PHOS RARE Normal [facility] Comment on above: Order Comment: CLEAN CATCH Performed By: #### L 400.0001, M100.2200 #### [facility] [address] [place], [address] WBC 0-5 SEEN Normal 0-5 [facility] Comment on above: Order Comment: CLEAN CATCH Performed By: #### L 400.0001, M100.2200 #### [facility] [address] [place], [address] EPI,SQUAMOUS 0 SEEN Normal 5-10 [facility] Comment on above: Order Comment: CLEAN CATCH Performed By: #### L 400.0001, M100.2200 #### [facility] [address] [place], [address] Mucus Ql (Urine sed) 0 SEEN Normal [facility] Comment on above: Order Comment: CLEAN CATCH Performed By: #### L 400.0001, M100.2200 #### [facility] [address] [place], [address] ALLIED HEALTHon 01-18-2025 ALLIED HEALTH HNO ID: [id number] Author: YAJAIRA BAUITSTA RT(R) Service: Radiology Author Type: Technologist Type: [...] PATIENT PRESENTS WITH AN IMPLANTABLE OR ATTACHED PILL PACKER: No RADIOLOGY DEPARTMENT: Ultrasound PERIPHERAL IV DATA: Not applicable SIGNED BY: RT Akash(R) January 18, 2025 1:32 PM Normal [facility] US CAROTID BILon 01-18-2025 US CAROTID PEYMAN * * *Final Report* * * DATE OF EXAM: Jan 18 2025 1:36PM [facility] 1077 - US CAROTID PEYMAN / PROCEDURE [...] side. Antegrade vertebral artery flow is maintained. [employer] Machine Repairer: JARVIS Transcribe Date/Time: Jan 21 2025 12:26A Dictated by : RACHEL OLEARY MD This examination was interpreted and the report reviewed and electronically signed by: RACHEL OLEARY MD on Jan 21 2025 12:27AM EST [id number] N Normal [facility] 01-12-2025 CNPN Telephone (CVAKPO) MADIHA PERALES ([id number]) 1945 F Date Time Provider Department 01/12/25 SARA RAMEY CVOCHOAPO During your visit today, we recorded the following information about you: Sara Ramey APRN.PEELER OPERATOR 01/12/2025 5:16 PM Signed Spoke with pt's daughter Sg with patient's permission. She had called in [...] will consider switching her over to vimpat. Sg will keep us updated. Also discussed that [...] plan to follow up with me in [place] 02/14 to review results and see how things are going. Kya, can you help me communicate with [facility] [place] regarding adding aspirin 81mg daily, and asking them to schedule her carotid ultrasound (they can use [phone])? The daughter wasn't sure whether she's supposed to schedule appts or if they do to arrange rides ,etc. I will amend her AVS from 01/03 so can use that as documentation. Thank you!! This is the address: [address], [place] [address] Libby Latif 01/13/2025 11:08 AM Signed Stevie called stating she spoke to Sara yesterday about changing her mom's keppra to vimpat, and she states the rehab facility[facility], and pt is in room 209, the nurse is Erna, today, and Ligia if you call tomorrow. Kya Gautam, HANNAH 01/13/2025 11:51 AM Signed Situation: Called and spoke with Erna, patient's Nurse at [facility]. Background: Please see previous documentation within this encounter. Per ALLI Ramey: Kya, can you help me communicate with [facility] in [place] regarding adding aspirin 81mg daily, and asking them to schedule her carotid ultrasound". Assessment: Informed Nurse Erna Ramey is recommending starting aspirin 81 mg daily. Also informed to call [phone] to schedule carotid ultrasound. Erna verbalized understanding. Then, informed Erna that Daughter had conversation with ALLI Ramey yesterday regarding patient's behavior/personality changes. Erna then informed this RN patient has experienced increased drowsiness (taking at least four small naps per day, often sits with eyes closed), agitation, refusal of medication, ongoing over last week to [id number], seeming to correlate with the start date [...] Daughter to clarify her wishes. Background: Per UKE DRIVER Karoline: When I talked to Kalpana yesterday, she [...] asks, "Wha (more content not included)... Normal [facility] CBC-Complete Blood Cnt No Di ffon 01-11-2025 Erythrocyte distribution width (RBC) [Ratio] 14.4 % Normal 11.6-14.6 [facility] Comment on above: Order Comment: 209-1 Performed By: #### L 500.4050, L100.0100 #### [facility] [address] [place], [address] Hematocrit (Bld) [Volume fraction] 39.4 % Normal 37-47 [facility] Comment on above: Order Comment: - Performed By: #### L 500.4050, L100.0100 #### [facility] [address] [place], [address] Hemoglobin (Bld) [Mass/Vol] 12.7 g/dL Normal 12.0-15.0 [facility] Comment on above: Order Comment: - Performed By: #### L 500.4050, L100.0100 #### [facility] [address] [place], [address] MCH (RBC) [Entitic mass] 30.6 pg Normal 27.0-32.0 [facility] Comment on above: Order Comment: Performed By: #### L 500.4050, L100.0100 #### [facility] [address] [place], [address] MCHC (RBC) [Mass/Vol] 32.2 g/dL Normal 32-36 [facility] Comment on above: Order Comment: Performed By: #### L 500.4050, L100.0100 #### [facility] [address] [place], [address] MCV (RBC) [Entitic vol] 94.9 fL Normal 81-99 [facility] Comment on above: Order Comment: - Performed By: #### L 500.4050, L100.0100 #### [facility] [address] [place], [address] Platelet mean volume (Bld) [Entitic vol] 10.1 fL Normal 6.2-12.0 [facility] Comment on above: Order Comment: - Performed By: #### L 500.4050, L100.0100 #### [facility] [address] [place], [address] Platelets (Bld) [#/Vol] 227 10*3/uL Normal 150-450 [facility] Comment on above: Order Comment: - Performed By: #### L 500.4050, L100.0100 #### [facility] [address] [place], [address] RBC (Bld) [#/Vol] 4.15 10*6/uL Low 4.2-5.4 [facility] Comment on above: Order Comment: - Performed By: #### L 500.4050, L100.0100 #### [facility] [address] [place], [address] RDW SD 50.0 fl High 35.1-43.9 [facility] Comment on above: Order Comment: - Performed By: #### L 500.4050, L100.0100 #### [facility] [address] [place], [address] WBC (Bld) [#/Vol] 6.0 10*3/uL Normal 4.4-11.0 [facility] Comment on above: Order Comment: - Performed By: #### L 500.4050, L100.0100 #### [facility] [address] [place], [address] Comprehensive Metabolic Prof [facility] 01-11-2025 Albumin [Mass/Vol] 3.6 g/dL Normal 3.4-4.8 [facility] Comment on above: Order Comment: - Performed By: #### L 500.4050, L100.0100 #### [facility] [address] [place], [address] Albumin/Globulin [Mass ratio] 1.6 {ratio} Normal 0.9-2.4 [facility] Comment on above: Order Comment: - Performed By: #### L 500.4050, L100.0100 #### [facility] [address] [place], [address] ALK PHOS 97 U/L Normal 35-104 [facility] Comment on above: Order Comment: Performed By: #### L 500.4050, L100.0100 #### [facility] [address] [place], [address] ALT [Catalytic activity/Vol] 10 U/L Normal <=34 [facility] Comment on above: Order Comment: Performed By: #### L 500.4050, L100.0100 #### [facility] [address] [place], [address] AST [Catalytic activity/Vol] 22 U/L Normal <=31 [facility] Comment on above: Order Comment: Performed By: #### L 500.4050, L100.0100 #### [facility] [address] [place], [address] Bilirubin [Mass/Vol] 0.34 mg/dL Normal 0.00-1.30 [facility] Comment on above: Order Comment: Performed By: #### L 500.4050, L100.0100 #### [facility] [address] [place], [address] BUN/CRE 23.1 RATIO High 10-20 [facility] Comment on above: Order Comment: Performed By: #### L 500.4050, L100.0100 #### [facility] [address] [place], [address] Calcium [Mass/Vol] 9.1 mg/dL Normal 7.6-11.0 [facility] Comment on above: Order Comment: Performed By: #### L 500.4050, L100.0100 #### [facility] [address] [place], [address] Chloride [Moles/Vol] 106 mmol/L Normal 98-108 [facility] Comment on above: Order Comment: Performed By: #### L 500.4050, L100.0100 #### [facility] [address] [place], [address] CO2 [Moles/Vol] 29.4 mmol/L Normal 21.0-32.0 [facility] Comment on above: Order Comment: Performed By: #### L 500.4050, L100.0100 #### [facility] [address] [place], [address] Creatinine [Mass/Vol] 0.70 mg/dL Normal 0.70-1.20 [facility] Comment on above: Order Comment: Performed By: #### L 500.4050, L100.0100 #### [facility] [address] [place], [address] GAP 9 Normal 5-15 [facility] Comment on above: Order Comment: Performed By: #### L 500.4050, L100.0100 #### [facility] [address] [place], [address] GFR/1.73 sq M.predicted among non-blacks MDRD (S/P/Bld) [Vol rate/Area] 88 mL/min/{1.73_m2} Normal >60 [facility] Comment on above: Order Comment: Result Comment: mL/m in/1.73m2 CKD-EPI Creatinine Equation (2020) Performed By: #### L 500.4050, L100.0100 #### [facility] [address] [place], [address] Globulin (S) [Mass/Vol] 2.3 g/dL Normal 2.2-4.2 [facility] Comment on above: Order Comment: Performed By: #### L 500.4050, L100.0100 #### [facility] [address] [place], [address] Glucose [Mass/Vol] 100 mg/dL High 70-99 [facility] Comment on above: Order Comment: - Performed By: #### L 500.4050, L100.0100 #### [facility] [address] [place], [address] Potassium [Moles/Vol] 4.1 mmol/L Normal 3.3-5.1 [facility] Comment on above: Order Comment: - Performed By: #### L 500.4050, L100.0100 #### [facility] [address] [place], [address] Sodium [Moles/Vol] 144 mmol/L Normal 133-145 [facility] Comment on above: Order Comment: - Performed By: #### L 500.4050, L100.0100 #### [facility] [address] [place], [address] T PROT 5.8 g/dL Low 5.9-8.4 [facility] Comment on above: Order Comment: - Performed By: #### L 500.4050, L100.0100 #### [facility] [address] [place], [address] Urea nitrogen [Mass/Vol] 16 mg/dL Normal 4-19 [facility] Comment on above: Order Comment: - Performed By: #### L 500.4050, L100.0100 #### [facility] [address] [place], [address] CNPDaphne 01-07-2025 BRIANNA Telephone ([facility]) MADIHA PERALES ([id number]) 1945 F Date Time Provider Department 01/07/25 KAROLINESARA [facility] During your visit today, we recorded the [...] Perales, 1945). Yes Number to return call [phone] Reason for Call: Patient Question/Update: Patient's daughter calling because since dosage change patient has been way more confused, daughter wondering if it should be once a day or twice a day. Thank you calling [facility]. You will receive a return call within 48 hours ( or 2 business days if close to the weekend). If you feel that this is an urgent issue and needs immediate attention, it is recommended that you contact your primary care provider office or proceed to your nearest Urgent Care Center of Emergency Room ED for evaluation/treatment. Kya Gautam RN 01/07/2025 2:36 PM Signed Situation: Called [...] Encounter routed to provider for review. Kya Gautam, RN 01/07/2025 3:38 PM Signed Situation: Called [...] to ED?" This RN responded, clarifying, while LALI Ramey does not think symptoms are related [...] once mc (more content not included)... Normal [facility] CNOVon 01-03-2025 CNOV Office Visit ([facility] ) MADIHA PERALES ([id number]) 1945 F Date Time Provider Department 01/03/25 10:30 AM SARA RAMEY [facility] During your visit today, we recorded the following information about you: Pulse Respiration Blood pressure Weight 76/minute 16/minute 103/71 93.4 kg Sara Ramey APRN.CNP 01/12/2025 5:21 PM Addendum [facility] Established Visit Consultation is requested by: Racheal De La Rosa [address] [facility] [address] PCP: Marie Devi [address] [facility] [address] [place] [address] CEREBROVASCULAR HISTORY Madiha Perales is a 79 year old female presenting for hospital discharge follow up. Admitted to [facility] 12/03-12/10/24. From discharge summary Patient at baseline [...] currently doing electrolyte jello -gets therapy at [facility] -she has fluctuating mental status and physical capabilities -in hospital was started on Keppra due to potential epileptogenicity on EEG -needs to see Epilepsy clinic -overall happy disposition -denies any side effects to keppra including drowsiness, dizziness, irritability -has only complained of one headache since discharge -taking gabapentin BID -no GCA on temporal artery biopsy -follows with a Neurologist at [facility] for Parkinsons PAST MEDICAL HISTORY [...] other (hyperlipidemia (more content not included)... Normal [facility] CBC-Complete Blood Cnt No Di ffon 12-14-2024 Erythrocyte distribution width (RBC) [Ratio] 13.9 % Normal 11.6-14.6 [facility] Comment on above: Order Comment: 209.1 Performed By: #### L 100.0500 #### [facility] [address] [place], [address] Hematocrit (Bld) [Volume fraction] 39.7 % Normal 37-47 [facility] Comment on above: Order Comment: 209.1 Performed By: #### L 100.0500 #### [facility] [address] [place], [place], [id number] ([address]) Hemoglobin (Bld) [Mass/Vol] 13.3 g/dL Normal 12.0-15.0 [facility] Comment on above: Order Comment: 209.1 Performed By: #### L 100.0500 #### [facility] [address] [place], [address] MCH (RBC) [Entitic mass] 31.1 pg Normal 27.0-32.0 [facility] Comment on above: Order Comment: .1 Performed By: #### L 100.0500 #### [facility] [address] [place], [address] MCHC (RBC) [Mass/Vol] 33.5 g/dL Normal 32-36 [facility] Comment on above: Order Comment: . Performed By: #### L 100.0500 #### [facility] [address] [place], [address] MCV (RBC) [Entitic vol] 93.0 fL Normal 81-99 [facility] Comment on above: Order Comment: . Performed By: #### L 100.0500 #### [facility] [address] [place], [address] Platelet mean volume (Bld) [Entitic vol] 10.3 fL Normal 6.2-12.0 [facility] Comment on above: Order Comment: . Performed By: #### L 100.0500 #### [facility] [address] [place], [address] Platelets (Bld) [#/Vol] 268 10*3/uL Normal 150-450 [facility] Comment on above: Order Comment: .1 Performed By: #### L 100.0500 #### [facility] [address] [place], [address] RBC (Bld) [#/Vol] 4.27 10*6/uL Normal 4.2-5.4 [facility] Comment on above: Order Comment: .1 Performed By: #### L 100.0500 #### [facility] [address] [place], [address] RDW SD 47.1 fl High 35.1-43.9 [facility] Comment on above: Order Comment: 209.1 Performed By: #### L 100.0500 #### [facility] [address] [place], [address] WBC (Bld) [#/Vol] 10.9 10*3/uL Normal 4.4-11.0 [facility] Comment on above: Order Comment: 209.1 Performed By: #### L 100.0500 #### [facility] [address] [place], [address] Basic Metabolic Profile (BMP )on 12-13-2024 BUN/CRE 26.3 RATIO High 10-20 [facility] Comment on above: Order Comment: .1 Performed By: #### L 100.0500, L500.2500 #### [facility] [address] [place], [address] Calcium [Mass/Vol] 8.7 mg/dL Normal 7.6-11.0 [facility] Comment on above: Order Comment: 209.1 Performed By: #### L 100.0500, L500.2500 #### [facility] [address] [place], [address] Chloride [Moles/Vol] 103 mmol/L Normal 98-108 [facility] Comment on above: Order Comment: 209.1 Performed By: #### L 100.0500, L500.2500 #### [facility] [address] [place], [address] CO2 [Moles/Vol] 26.0 mmol/L Normal 21.0-32.0 [facility] Comment on above: Order Comment: 209.1 Performed By: #### L 100.0500, L500.2500 #### [facility] [address] [place], [address] Creatinine [Mass/Vol] 0.69 mg/dL Low 0.70-1.20 [facility] Comment on above: Order Comment: . Performed By: #### L 100.0500, L500.2500 #### [facility] [address] [place], [address] GAP 10 Normal 5-15 [facility] Comment on above: Order Comment: . Performed By: #### L 100.0500, L500.2500 #### [facility] [address] [place], [address] GFR/1.73 sq M.predicted among non-blacks MDRD (S/P/Bld) [Vol rate/Area] 89 mL/min/{1.73_m2} Normal >60 [facility] Comment on above: Order Comment: . Result Comment: mL/m in/1.73m2 CKD-EPI Creatinine Equation (2020) Performed By: #### L 100.0500, L500.2500 #### [facility] [address] [place], [address] Glucose [Mass/Vol] 84 mg/dL Normal 70-99 [facility] Comment on above: Order Comment: . Performed By: #### L 100.0500, L500.2500 #### [facility] [address] [place], [address] Potassium [Moles/Vol] 4.3 mmol/L Normal 3.3-5.1 [facility] Comment on above: Order Comment: . Performed By: #### L 100.0500, L500.2500 #### [facility] [address] [place], [address] Sodium [Moles/Vol] 140 mmol/L Normal 133-145 [facility] Comment on above: Order Comment: . Performed By: #### L 100.0500, L500.2500 #### [facility] [address] [place], [address] Urea nitrogen [Mass/Vol] 18 mg/dL Normal 4-19 [facility] Comment on above: Order Comment: 209.1 Performed By: #### L 100.0500, L500.2500 #### [facility] [address] [place], [address] CBC-Complete Blood Cnt No Di ffon 12-13-2024 HCT Normal 37-47 [facility] Comment on above: Order Comment: 209.1 Result Comment: This specimen has been REJECTED due to Laboratory criteria: Quanity Not Sufficient. LAB has been notified of need of recollection. 12/13/24 0853 Annie Mendez Performed By: #### L 100.0500, L500.2500 #### [facility] [address] [place], [address] HGB Normal 12.0-15.0 [facility] Comment on above: Order Comment: 209.1 Result Comment: This specimen has been REJECTED due to Laboratory criteria: Quanity Not Sufficient. LAB has been notified of need of recollection. 12/13/24 0853 Annie Mendez Performed By: #### L 100.0500, L500.2500 #### [facility] [address] [place], [address] MCH Normal 27.0-32.0 [facility] Comment on above: Order Comment: 209.1 Result Comment: This specimen has been REJECTED due to Laboratory criteria: Quanity Not Sufficient. LAB has been notified of need of recollection. 12/13/2453 Annie Mendez Performed By: #### L 100.0500, L500.2500 #### [facility] [address] [place], [address] MCHC Normal 32-36 [facility] Comment on above: Order Comment: 209.1 Result Comment: This specimen has been REJECTED due to Laboratory criteria: Quanity Not Sufficient. LAB has been notified of need of recollection. 12/13/24 0853 Annie Mendez Performed By: #### L 100.0500, L500.2500 #### [facility] [address] [place], [address] MCV Normal 81-99 [facility] Comment on above: Order Comment: 209.1 Result Comment: This specimen has been REJECTED due to Laboratory criteria: Quanity Not Sufficient. LAB has been notified of need of recollection. 12/13/24 0853 Annie Mendez Performed By: #### L 100.0500, L500.2500 #### [facility] [address] [place], [address] PLT Normal 150-450 [facility] Comment on above: Order Comment: 209.1 Result Comment: This specimen has been REJECTED due to Laboratory criteria: Quanity Not Sufficient. LAB has been notified of need of recollection. 12/13/24 0853 Annie Mendez Performed By: #### L 100.0500, L500.2500 #### [facility] [address] [place], [address] RBC Normal 4.2-5.4 [facility] Comment on above: Order Comment: 209.1 Result Comment: This specimen has been REJECTED due to Laboratory criteria: Quanity Not Sufficient. LAB has been notified of need of recollection. 12/13/24 0853 Annie Mendez Performed By: #### L 100.0500, L500.2500 #### [facility] [address] [place], [address] RDW CV Normal 11.6-14.6 [facility] Comment on above: Order Comment: 209.1 Result Comment: This specimen has been REJECTED due to Laboratory criteria: Quanity Not Sufficient. LAB has been notified of need of recollection. 12/13/24 0853 Annie Mendez Performed By: #### L 100.0500, L500.2500 #### [facility] [address] [place], [address] RDW SD Normal 35.1-43.9 [facility] Comment on above: Order Comment: 209.1 Result Comment: This specimen has been REJECTED due to Laboratory criteria: Quanity Not Sufficient. LAB has been notified of need of recollection. 12/13/24 0853 Annie Mendez Performed By: #### L 100.0500, L500.2500 #### [facility] [address] [place], [address] WBC Normal 4.4-11.0 [facility] Comment on above: Order Comment: 209.1 Result Comment: This specimen has been REJECTED due to Laboratory criteria: Quanity Not Sufficient. LAB has been notified of need of recollection. 12/13/24 0853 Annie Mendez Performed By: #### L 100.0500, L500.2500 #### [facility] [address] [place], [address] ANES POSTPROC EVALon 025 ANES POSTPROC EVAL HNO ID: [id number] Author: PUMA MADRIGAL MD Service: Anesthesiology Author Type: Anesthesiologist Type: Anesthesia Postprocedure Evaluation Filed: 12/10/2024 08:02 Note Text: POST ANESTHESIA EVALUATION NOTE : 1945 Procedure Summary Date: 12/09/24 Room / Location: [facility] / [facility] [place] Anesthesia Start: 1451 Anesthesia Stop: 1602 [...] December 10, 2024 TIME: 8:01 AM CSN: [id number] Normal [facility] Basic metabolic 2000 panelon 12-10-2024 Anion gap [Moles/Vol] 8 mmol/L Normal 8-15 [facility] Comment on above: Order Comment: Speci men Type: BLOOD SPECIMENOrdering Facility: [facility] Address: [address] [place] [address] Performed By: #### 2 4321-2 ####[facility]ATORYCLIA [id number] [place] [address] [place] Calcium [Mass/Vol] 8.9 mg/dL Normal 8.5-10.2 [facility] Comment on above: Order Comment: Speci men Type: BLOOD SPECIMENOrdering Facility: [facility] Address: [address] [place] [address] Performed By: #### 2 4321-2 ####[facility]ORATORYCLIA [id number] [place] [address] [place] Chloride [Moles/Vol] 104 mmol/L Normal 98-107 [facility] Comment on above: Order Comment: Speci men Type: BLOOD SPECIMENOrdering Facility: [facility] Address: [address] [place] [address] Performed By: #### 2 4321-2 ####[facility]ORATORYCLIA [id number] [place] [address] [place] CO2 [Moles/Vol] 30 mmol/L Normal 22-30 [facility] Comment on above: Order Comment: Speci men Type: BLOOD SPECIMENOrdering Facility: [facility] Address: [address] [place] [address] Performed By: #### 2 4321-2 ####[facility]ORATORYCLIA [id number] [place] [address] [place] Creatinine [Mass/Vol] 0.74 mg/dL Normal 0.58-0.96 [facility] Comment on above: Order Comment: Yoav lujan Type: BLOOD SPECIMENOrdering Facility: [facility] Address: [address] [place] [address] Performed By: #### 2 4321-2 ####[facility]ORATORYCLIA [id number] [place] [address] [place] Creatinine and Glomerular filtration rate.predicted panel (S/P/Bld) 83 mL/min/1.73m??? Normal >=60 [facility] Comment on above: Order Comment: Nehemiahjann lujan Type: BLOOD SPECIMENOrdering Facility: [facility] Address: [address] [place] [address] Result Comment: Mateo mated Glomerular Filtration Rate [...] Performed By: #### 2 4321-2 ####[facility]ORATORYCLIA [id number] [place] [id number] [place] Glucose [Mass/Vol] 91 mg/dL Normal 74-99 [facility] Comment on above: Order Comment: Yoav lujan Type: BLOOD SPECIMENOrdering Facility: [facility] Address: [address] [place] [address] Result Comment: The [place] Diabetes Association (ADA) provides guidance for cutoff [...] Standards of Medical Care in Diabetes 2016, [place] Diabetes Association. Diabetes Care. 2016.39(Suppl 1). Performed By: #### 2 4321-2 ####[facility]ORATORYCLIA [id number] [place] [address] [place] Potassium [Moles/Vol] 4.5 mmol/L Normal 3.7-5.1 [facility] Comment on above: Order Comment: Speci men Type: BLOOD SPECIMENOrdering Facility: [facility] Address: [address] [place] [address] Performed By: #### 2 4321-2 ####[facility]ORATORYCLIA [id number] [place] [address] [place] Sodium [Moles/Vol] 142 mmol/L Normal 136-144 [facility] Comment on above: Order Comment: Speci men Type: BLOOD SPECIMENOrdering Facility: [facility] Address: [address] [place] [address] Performed By: #### 2 4321-2 ####[facility]ORATORYCLIA [id number] [address] [place] Urea nitrogen [Mass/Vol] 19 mg/dL Normal 7-21 [facility] Comment on above: Order Comment: Speci men Type: BLOOD SPECIMENOrdering Facility: [facility] Address: [address] [place] [address] Performed By: #### 2 4321-2 ####[facility]ORATORYCLIA [id number] [address] [place] CBC W Auto Differential pane l (Bld)on 12-10-2024 Basophils (Bld) [#/Vol] 10*3/uL Normal <0.11 [facility] Comment on above: Order Comment: Speci men Type: BLOOD SPECIMENOrdering Facility: [facility] Address: [address] [place] [address] Performed By: #### 5 7021-8 ####[facility]ORATORYCLIA [id number] [address] Basophils/100 WBC (Bld) 0.0 % Normal [facility] Comment on above: Order Comment: Speci men Type: BLOOD SPECIMENOrdering Facility: [facility] Address: [address] [place] [address] Performed By: #### 5 7021-8 ####[facility]ORATORYCLIA [id number] [address] [place] Differential cell count method Nom (Bld) Auto Normal [facility] Comment on above: Order Comment: Speci men Type: BLOOD SPECIMENOrdering Facility: [facility] Address: [address] [place] [address] Performed By: #### 5 7021-8 ####[facility]ORATORYCLIA [id number] [place] [address] [place] Eosinophils (Bld) [#/Vol] 10*3/uL Normal <0.46 [facility] Comment on above: Order Comment: Speci men Type: BLOOD SPECIMENOrdering Facility: [facility] Address: [address] [place] [address] Performed By: #### 5 7021-8 ####[facility]ORATORYCLIA [id number] [place] [address] [place] Eosinophils/100 WBC (Bld) 0.1 % Normal [facility] Comment on above: Order Comment: Speci men Type: BLOOD SPECIMENOrdering Facility: [facility] Address: [address] [place] [address] Performed By: #### 5 7021-8 ####[facility]ORATORYCLIA [id number] [address] [place] Erythrocyte distribution width (RBC) [Ratio] 13.5 % Normal 11.5-15.0 [facility] Comment on above: Order Comment: Speci men Type: BLOOD SPECIMENOrdering Facility: [facility] Address: [address] [place] [address] Performed By: #### 5 7021-8 ####[facility]ORATORYCLIA [id number] [place] [address] [place] Hematocrit (Bld) [Volume fraction] 38.6 % Normal 36.0-46.0 [facility] Comment on above: Order Comment: Speci men Type: BLOOD SPECIMENOrdering Facility: [facility] Address: [address] [place] [address] Performed By: #### 5 7021-8 ####[facility]ORATORYCLIA [id number] [place] [address] [place] Hemoglobin (Bld) [Mass/Vol] 12.6 g/dL Normal 11.5-15.5 [facility] Comment on above: Order Comment: Speci men Type: BLOOD SPECIMENOrdering Facility: [facility] Address: [address] [place] [address] Performed By: #### 5 7021-8 ####[facility]ORATORYCLIA [id number] [place] [address] [place] Immature granulocytes (Bld) [#/Vol] 0.07 10*3/uL Normal <0.10 [facility] Comment on above: Order Comment: Speci men Type: BLOOD SPECIMENOrdering Facility: [facility] Address: [address] [place] [address] Performed By: #### 5 7021-8 ####[facility]ORATORYCLIA [id number] [place] [address] [place] Immature granulocytes/100 WBC (Bld) 0.7 % Normal [facility] Comment on above: Order Comment: Speci men Type: BLOOD SPECIMENOrdering Facility: [facility] Address: [address] [place] [address] Performed By: #### 5 7021-8 ####[facility]ORATORYCLIA [id number] [place] [address] [place] Lymphocytes (Bld) [#/Vol] 1.36 10*3/uL Normal 1.00-4.00 [facility] Comment on above: Order Comment: Speci men Type: BLOOD SPECIMENOrdering Facility: [facility] Address: [address] [place] [address] Performed By: #### 5 7021-8 ####[facility]ORATORYCLIA [id number] [address] [place] Lymphocytes/100 WBC (Bld) 14.4 % Normal [facility] Comment on above: Order Comment: Speci men Type: BLOOD SPECIMENOrdering Facility: [facility] Address: [address] [place] [address] Performed By: #### 5 7021-8 ####[facility]ORATORYCLIA [id number] [address] MCH (RBC) [Entitic mass] 30.5 pg Normal 26.0-34.0 [facility] Comment on above: Order Comment: Speci men Type: BLOOD SPECIMENOrdering Facility: [facility] Address: [address] [place] [address] Performed By: #### 5 7021-8 ####[facility]ORATORYCLIA [id number] [address] [place] MCHC (RBC) [Mass/Vol] 32.6 g/dL Normal 30.5-36.0 [facility] Comment on above: Order Comment: Speci men Type: BLOOD SPECIMENOrdering Facility: [facility] Address: [address] [place] [address] Performed By: #### 5 7021-8 ####[facility]ORATORYCLIA [id number] [address] MCV (RBC) [Entitic vol] 93.5 fL Normal 80.0-100.0 [facility] Comment on above: Order Comment: Speci men Type: BLOOD SPECIMENOrdering Facility: [facility] Address: [address] [place] [address] Performed By: #### 5 7021-8 ####[facility]ORATORYCLIA [id number] [address] [place] Monocytes (Bld) [#/Vol] 0.62 10*3/uL Normal <0.87 [facility] Comment on above: Order Comment: Speci men Type: BLOOD SPECIMENOrdering Facility: [facility] Address: [address] [place] [address] Performed By: #### 5 7021-8 ####[facility]ORATORYCLIA [id number] [address] Monocytes/100 WBC (Bld) 6.6 % Normal [facility] Comment on above: Order Comment: Speci men Type: BLOOD SPECIMENOrdering Facility: [facility] Address: [address] [place] [address] Performed By: #### 5 7021-8 ####[facility]ORATORYCLIA [id number] [place] [address] [place] Neutrophils (Bld) [#/Vol] 7.38 10*3/uL Normal 1.45-7.50 [facility] Comment on above: Order Comment: Speci men Type: BLOOD SPECIMENOrdering Facility: [facility] Address: [address] [place] [address] Performed By: #### 5 7021-8 ####[facility]ORATORYCLIA [id number] [place] [address] [place] Neutrophils/100 WBC (Bld) 78.2 % Normal [facility] Comment on above: Order Comment: Speci men Type: BLOOD SPECIMENOrdering Facility: [facility] Address: [address] [place] [address] Performed By: #### 5 7021-8 ####[facility]ORATORYCLIA [id number] [place] [address] [place] Nucleated RBC (Bld) [#/Vol] 10*3/uL Normal <0.01 [facility] Comment on above: Order Comment: Speci men Type: BLOOD SPECIMENOrdering Facility: [facility] Address: [address] [place] [address] Performed By: #### 5 7021-8 ####[facility]ORATORYCLIA [id number] [place] [address] [place] Nucleated RBC/100 WBC (Bld) [Ratio] 0.0 /100 WBC Normal [facility] Comment on above: Order Comment: Speci men Type: BLOOD SPECIMENOrdering Facility: [facility] Address: [address] [place] [address] Performed By: #### 5 7021-8 ####[facility]ORATORYCLIA [id number] [place] [address] [place] Platelet mean volume (Bld) [Entitic vol] 9.9 fL Normal 9.0-12.7 [facility] Comment on above: Order Comment: Speci men Type: BLOOD SPECIMENOrdering Facility: [facility] Address: [address] [place] [address] Performed By: #### 5 7021-8 ####[facility]ORATORYCLIA [id number] [address] [place] Platelets (Bld) [#/Vol] 239 10*3/uL Normal 150-400 [facility] Comment on above: Order Comment: Speci men Type: BLOOD SPECIMENOrdering Facility: [facility] Address: [address] [place] [address] Performed By: #### 5 7021-8 ####[facility]ORATORYCLIA [id number] [place] [address] [facility] OF [place] RBC (Bld) [#/Vol] 4.13 10*6/uL Normal 3.90-5.20 [facility] Comment on above: Order Comment: Speci men Type: BLOOD SPECIMENOrdering Facility: [facility] Address: [address] [place] [address] Performed By: #### 5 7021-8 ####[facility]ORATORYCLIA [id number] [address] [place] WBC (Bld) [#/Vol] 9.44 10*3/uL Normal 3.70-11.00 [facility] Comment on above: Order Comment: Speci men Type: BLOOD SPECIMENOrdering Facility: [facility] Address: [address] [place] [address] Performed By: #### 5 7021-8 ####[facility]ORATORYCLIA [id number] [address] CNDSon 12-10-2024 CNDS HNO ID: [id number] Author: SHAW KINSEY MD Service: Hospital Medicine [...] at bedside, (more content not included)... Normal [facility] CONSULT PROGon 12-10-2024 CONSULT PROG HNO ID: [id number] Author: VIKASH AGEE JR, MD Service: Neurology General Author Type: Physician Type: Consult Progress Note Filed: 12/10/2024 18:32 Note Text: TELENEUROLOGY CONSULT PROGRESS NOTE The Teleneurologist or RONNIE is available from 8 am to 5 pm on weekdays. On weekends, at [place] and [place], the Teleneurologist or RONNIE is available from 8 am to 5 pm, [facility] 8 am to 12 pm, [facility] 1 pm to 5 pm, [facility] 8 am to 12 pm, [place] 1 pm to 5 pm. Statutory holidays do not have teleneuro coverage. [facility] : During Off hours for Teleneurology please page (not call) [facility] [address] bilingual receptionist for concerns. [facility]: During Off hours for Teleneurology please page (not call) [place] [facility] [address] bilingual receptionist for concerns. [facility]: There is no off-hours coverage for Teleneurology. [...] (97.3 ?F) Oral 64 18 96 % 12/09/242154 126/71 37 ?C (98.6 ?F) Oral 66 [...] ups arranged. Primary team aware of plan. Viaksh Agee MD Patient was seen using telemedicine services on this date. Examination was completed by Teleneurology video (MoneyDesktop system) assisted by Teleneurology (more content not included)... Normal [facility] Magnesium SerPl-mCncon 12-10 Magnesium [Mass/Vol] 2.2 mg/dL Normal 1.7-2.3 [facility] Comment on above: Order Comment: Speci men Type: BLOOD SPECIMENOrdering Facility: [facility] Address: [address] [place] [address] Performed By: #### 1 9123-9 ####[facility]ORATORYCLIA [id number] [place] [id number] [place] ALLIED HEALTHon 12-09-2024 ALLIED HEALTH HNO ID: [id number] Author: LILIAN SHAW CT Service: Radiology Author [...] PATIENT PRESENTS WITH AN IMPLANTABLE OR ATTACHED PILL PACKER: No RADIOLOGY DEPARTMENT: MR; Exam(s) Completed: Head: Sagittal Sinus MRV. Aromatherapy Administered: No PERIPHERAL IV DATA: Not applicable SIGNED BY: GISSEL PATTERSON FISH SALTER December 09, 2024 2:18 PM [facility] ANES PRE-OPon 12-09-2024 ANES PRE-OP HNO ID: [id number] Author: REED COON MD Service: Anesthesiology Author Type: Anesthesiologist Type: Anesthesia Preprocedure Evaluation Filed: 12/09/2024 14:35 Note Text: ANESTHESIOLOGY DAY OF SURGERY NOTE : 1945 Procedure Information Date/Time: 12/09/24 1515 Procedure: BIOPSY ARTERY TEMPORAL (Right: Temporal) Location: [facility]02 / [facility] Surgeons: Torrie Choi MD Estimated body [...] December 09, 2024 TIME: 2:35 PM CSN: [id number] [facility] BRIEF OP NOTon 12-09-2024 BRIEF OP NOT HNO ID: [id number] Author: TORRIE CHOI MD Service: General Surgery Author Type: Physician Type: Brief Op Note Filed: 12/09/2024 16:05 Note Text: BRIEF OPERATIVE / PROCEDURE NOTE LOG ID: [id number] SURGERY/PROCEDURE DATE: 12/09/2024 INCISION/PROCEDURE START TIME: 3:16 PM INCISION CLOSE/PROCEDURE END TIME: 3:48 PM SURGEON(S)/PROCEDURAL IST(S) AND FOLDER TAPER OPERATOR(S): Surgeons and Role: * Torrie Choi MD - Primary Physician Hemodialysis Lab Technician: No Diaz PA-C SURGERY/PROCEDURE(S): Right temporal artery biopsy ANESTHESIA: Monitored Anesthesia Care FINDINGS: see report ESTIMATED BLOOD LOSS: 20 ml SPECIMENS: 1 COMPLICATIONS: None CLOSURE TECHNIQUE: Primary PRE-OP/PRE-PROCEDURE DIAGNOSIS: headache POST-OP/POST-PROCEDUR E DIAGNOSIS: Same as Preop # [id number] SIGNATURE: Torrie Choi MD PATIENT NAME: Madiha Perales DATE: December 09, 2024 TIME: 4:01 PM [facility] MRV BRAIN WO IVCONon 025 MRV BRAIN WO IVCON * * *Final Report* * * DATE OF EXAM: Dec 09 2024 2:29PM [facility] 0335 - MRV BRAIN WO IVCON / PROCEDURE REASON: Headache, uncomplicated (Ped 0-18y) * * * * Physician Interpretation * * * * EXAMINATION: MRV BRAIN WO IVCON CLINICAL HISTORY: Headache TECHNIQUE: 3D dzgy-uj-gompyw MRV with post-processing performed at the modality [...] significant focal narrowing or intraluminal filling defects. Cell[employer]ane Casting Machine Repairer: PSCB Transcribe Date/Time: Dec 09 2024 2:38P Dictated by : CELI HADDAD MD This examination was interpreted and the report reviewed and electronically signed by: CELI HADDAD MD on Dec 09 2024 2:45PM EST [id number] [facility] OPERATIVE NOon 12-09-2024 OPERATIVE NO HNO ID: [id number] Author: TORRIE CHOI MD Service: General Surgery Author Type: Physician Type: Operative Report Filed: 12/09/2024 16:44 Note Text: [facility] - Operative Report MADIHA PERALES : 1945 AGE: 79. SEX: F PATIENT TYPE: I HOSP SVC: Medical LOCATION: [facility] [place] ATTENDING PHYSICIAN: SHAW KINSEY CSN NUMBER: [id number] DATE OF SURGERY/PROCEDURE: 12/09/2024 INCISION/PROCEDURE START TIME: 3:16 p.m. INCISION CLOSE/PROCEDURE END TIME: 3:48 p.m. PREOPERATIVE DIAGNOSIS: Headaches. POSTOPERATIVE DIAGNOSIS: Headaches. SURGEON: Torrie Choi M.D. FOLDER TAPER OPERATOR: SREEDHAR Nathan. SURGERY/PROCEDURE: Right temporal artery [...] qualified residents or follow staff available. The malt specifications control assistant's tasks including retraction, hemostasis, and [...] room in good condition. Torrie Choi M.D. KED:[id number] /[id number] [facility] Pathology biopsy report Phil (Tiss)on 12-09-2024 AP DISCLAIMER [facility] Comment on above: Order Comment: Speci men Type: TISSUE SPECIMENOrdering Facility: [facility] Address: [address] [place] [address] Result Comment: Liliana Ribeiro Test (LDT) Disclaimer: Performance characteristics of immunohistochemical, immunofluorescent, and chromogenic in-situ hybridization tests have been determined by the performing laboratory within [facility]'s [facility] Pathology and Laboratory Medicine Department ([facility], [facility], [facility], [facility], [facility], [facility], or [facility]) in a manner consistent with CLIA requirements. One or more of these tests may not have been cleared or approved by the FDA. [facility] is regulated under CLIA as qualified to perform high-complexity testing. These tests are used for clinical purposes. These should not be regarded as investigational or for research. Positive and negative controls stain appropriately. Performed By: #### 6 6121-5 ####[facility] LABCLIA [id number] [address] STATES [place] CASE REPORT Normal [facility] Comment on above: Order Comment: Specjann lujan Type: TISSUE SPECIMENOrdering Facility: [facility] Address: [address] [place] [address] Result Comment: Surg ical Pathology Report Case: [id number] Authorizing Provider: Torrie Choi MD Collected: 12/09/2024 03:17 PM Ordering Location: [facility] Surgery Received: 12/10/2024 08:08 AM Pathologist: Johnathon Vasquez MD, PhD Specimen: Artery, Temporal, Biopsy, right temporal artery biopsy Performed By: #### 6 6121-5 ####[facility] LABCLIA [id number] [address] STATES OF CED CLINICAL HISTORY Normal [facility] Comment on above: Order Comment: Yoav lujan Type: TISSUE SPECIMENOrdering Facility: [facility] Address: [address] [place] [address] Result Comment: 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 A Movat stain was [...] healed arteritis in this biopsy. [facility] Comment on above: Order Comment: Speci men Type: TISSUE SPECIMENOrdering Facility: [facility] Address: [address] [place] [address] Performed By: #### 6 6121-5 ####[facility] LABIA [id number] [address] OF CED FINAL DIAGNOSIS [facility] Comment on above: Order Comment: Speci men Type: TISSUE SPECIMENOrdering Facility: [facility] Address: [address] [place] [address] Result Comment: A. R ight temporal artery, biopsy: - Negative for arteritis. at 1524 EDT Performed By: #### 6 6121-5 ####[facility] LABCLIA [id number] [address] STATES [place] FINAL PERFORMING LAB [facility] Comment on above: Order Comment: Speci men Type: TISSUE SPECIMENOrdering Facility: [facility] Address: [address] [place] [address] Result Comment: Diag nostic interpretation performed at: [facility], [address] [place] [address] CLIA# [id number] Landfill Attendant: Magdaleno Cano MD Performed By: #### 6 6121-5 ####[facility] LABCLIA [id number] [address] STATES OF [place] GROSS DESCRIPTION [facility] Comment on above: Order Comment: Speci men Type: TISSUE SPECIMENOrdering Facility: [facility] Address: [address] [place] [address] Result Comment: Delma brewer, Temporal, Biopsy Received in formalin is one segment of cylindrical tissue measuring 2.5 x 0.3 x 0.3 cm, red-brown and of a soft and fibrous consistency. Totally submitted in one cassette. MRV December 10, 2024 12:19 PM Gross examination performed at [facility], [address] [place] [address] Performed By: #### 6 6121-5 ####[facility] LABCLIA [id number] [address] THERAPY NTon 12-09-2024 THERAPY NT HNO ID: [id number] Author: LOBITO CAVAZOS PT Service: Physical Therapy Author Type: Physical Therapist Type: Therapy (PT/OT/Speech/Resp) Filed: 12/09/2024 13:48 Note Text: Summary: PT treatment Physical Therapy Treatment Summary SERVICE DATE: 12/09/2024 SERVICE TIME: 1140 to 1219 ROOM: [id number] PT 6 Clicks Score: 13 DISCHARGE RECOMMENDATIONS [...] toilet. Spouse assists with toilet transfer at [facility], spouse completes hygiene, some incontinent epsidoes [...] DIAGNOSIS Reduced (more content not included)... Normal [facility] HEALTHon 12-08-2024 ALLIED HEALTH HNO ID: [id number] Author: LILIAN SHAW CT Service: Radiology Author [...] PATIENT PRESENTS WITH AN IMPLANTABLE OR ATTACHED PILL PACKER: No RADIOLOGY DEPARTMENT: MR; Exam(s) Completed: Head: [place] MRA. Lavender Administered: No PERIPHERAL IV DATA: Not applicable SIGNED BY: RICHARD Viramontes December 08, 2024 9:16 AM Normal [facility] Basic metabolic 2000 panelon 12-08-2024 Anion gap [Moles/Vol] 9 mmol/L Normal 8-15 [facility] Comment on above: Order Comment: Speci men Type: BLOOD SPECIMENOrdering Facility: [facility] Address: [address] [place] [address] Performed By: #### 2 4321-2, ####[facility] LABORATORYCLIA [id number] [place] [address] [place] Calcium [Mass/Vol] 8.9 mg/dL Normal 8.5-10.2 [facility] Comment on above: Order Comment: Nehmeiahi men Type: BLOOD SPECIMENOrdering Facility: [facility] Address: [address] [place] [address] Performed By: #### 2 4320-2, ####[facility] LABORATORYCLIA [id number] [place] [address] [place] Chloride [Moles/Vol] 104 mmol/L Normal 98-107 [facility] Comment on above: Order Comment: Nehemiahi men Type: BLOOD SPECIMENOrdering Facility: [facility] Address: [address] [place] [address] Performed By: #### 2 2, ####[facility] LABORATORYCLIA [id number] [place] [id number] [place] CO2 [Moles/Vol] 27 mmol/L Normal 22-30 [facility] Comment on above: Order Comment: Speci men Type: BLOOD SPECIMENOrdering Facility: [facility] Address: [address] [place] [address] Performed By: #### 2 432-2, ####[facility] LABORATORYCLIA [id number] [place] [id number] [place] Creatinine [Mass/Vol] 0.51 mg/dL Low 0.58-0.96 [facility] Comment on above: Order Comment: Yoav lujan Type: BLOOD SPECIMENOrdering Facility: [facility] Address: [address] [place] [address] Performed By: #### 2 4321-2, ####[facility] LABORATORYCLIA [id number] [place] [address] [place] Creatinine and Glomerular filtration rate.predicted panel (S/P/Bld) 96 mL/min/1.73m??? Normal >=60 [facility] Comment on above: Order Comment: Yoav lujan Type: BLOOD SPECIMENOrdering Facility: [facility] Address: [address] [place] [address] [place] [address] Result Comment: Mateo mated Glomerular Filtration Rate [...] Performed By: #### 2 4321-2, ####[facility] LABORATORYCLIA [id number] [place] [id number] [place] Glucose [Mass/Vol] 134 mg/dL High 74-99 [facility] Comment on above: Order Comment: Yoav lujan Type: BLOOD SPECIMENOrdering Facility: [facility] Address: [address] [place] [address] Result Comment: The [place] Diabetes Association (ADA) provides guidance for cutoff [...] Standards of Medical Care in Diabetes 2016, [place] Diabetes Association. Diabetes Care. 2016.39(Suppl 1). Performed By: #### 2 4321-2, ####[facility] LABORATORYCLIA [id number] [place] [address] [place] Potassium [Moles/Vol] 4.7 mmol/L Normal 3.7-5.1 [facility] Comment on above: Order Comment: Speci men Type: BLOOD SPECIMENOrdering Facility: [facility] Address: [address] [place] [address] Performed By: #### 2 4321-2, ####[facility] LABORATORYCLIA [id number] [place] [address] [place] Sodium [Moles/Vol] 140 mmol/L Normal 136-144 [facility] Comment on above: Order Comment: Speci men Type: BLOOD SPECIMENOrdering Facility: [facility] Address: [address] [place] [address] Performed By: #### 2 432-2, ####[facility] LABORATORYCLIA [id number] [place] [address] [place] Urea nitrogen [Mass/Vol] 15 mg/dL Normal 7-21 [facility] Comment on above: Order Comment: Speci men Type: BLOOD SPECIMENOrdering Facility: [facility] Address: [address] [place] [address] Performed By: #### 2 4321-2, ####[facility] LABORATORYCLIA [id number] [place] [address] [place] CBC W Auto Differential pane l (Bld)on 12-08-2024 Basophils (Bld) [#/Vol] 10*3/uL Normal <0.11 [facility] Comment on above: Order Comment: Speci men Type: BLOOD SPECIMENOrdering Facility: [facility] Address: [address] [place] [address] Performed By: #### 5 7021-8 ####[facility] LABORATORYCLIA [id number] [address] STATES [facility] Basophils/100 WBC (Bld) 0.1 % Normal [facility] Comment on above: Order Comment: Speci men Type: BLOOD SPECIMENOrdering Facility: [facility] Address: [address] [place] [address] Performed By: #### 5 7021-8 ####[facility] LABORATORYCLIA [id number] [place] [address] [place] Differential cell count method Nom (Bld) Auto Normal [facility] Comment on above: Order Comment: Speci men Type: BLOOD SPECIMENOrdering Facility: [facility] Address: [address] [place] [address] Performed By: #### 5 7021-8 ####[facility] LABORATORYCLIA [id number] [place] [address] [place] Eosinophils (Bld) [#/Vol] 10*3/uL Normal <0.46 [facility] Comment on above: Order Comment: Speci men Type: BLOOD SPECIMENOrdering Facility: [facility] Address: [address] [place] [address] Performed By: #### 5 7021-8 ####[facility] LABORATORYCLIA [id number] [place] [address] [place] Eosinophils/100 WBC (Bld) 0.0 % Normal [facility] Comment on above: Order Comment: Speci men Type: BLOOD SPECIMENOrdering Facility: [facility] Address: [address] [place] [address] Performed By: #### 5 7021-8 ####[facility] LABORATORYCLIA [id number] [place] [address] [place] Erythrocyte distribution width (RBC) [Ratio] 13.3 % Normal 11.5-15.0 [facility] Comment on above: Order Comment: Speci men Type: BLOOD SPECIMENOrdering Facility: [facility] Address: [address] [place] [address] Performed By: #### 5 7021-8 ####[facility] LABORATORYCLIA [id number] [place] [address] [place] Hematocrit (Bld) [Volume fraction] 40.2 % Normal 36.0-46.0 [facility] Comment on above: Order Comment: Speci men Type: BLOOD SPECIMENOrdering Facility: [facility] Address: [address] [place] [address] Performed By: #### 5 7021-8 ####[facility] LABORATORYCLIA [id number] [place] [address] [place] Hemoglobin (Bld) [Mass/Vol] 13.2 g/dL Normal 11.5-15.5 [facility] Comment on above: Order Comment: Speci men Type: BLOOD SPECIMENOrdering Facility: [facility] Address: [address] [place] [address] Performed By: #### 5 7021-8 ####[facility] LABORATORYCLIA [id number] [place] [address] [place] Immature granulocytes (Bld) [#/Vol] 0.07 10*3/uL Normal <0.10 [facility] Comment on above: Order Comment: Speci men Type: BLOOD SPECIMENOrdering Facility: [facility] Address: [address] [place] [address] Performed By: #### 5 7021-8 ####[facility] LABORATORYCLIA [id number] [place] [address] [place] Immature granulocytes/100 WBC (Bld) 0.7 % Normal [facility] Comment on above: Order Comment: Speci men Type: BLOOD SPECIMENOrdering Facility: [facility] Address: [address] [place] [address] Performed By: #### 5 7021-8 ####[facility] LABORATORYCLIA [id number] [place] [address] [place] Lymphocytes (Bld) [#/Vol] 0.71 10*3/uL Low 1.00-4.00 [facility] Comment on above: Order Comment: Speci men Type: BLOOD SPECIMENOrdering Facility: [facility] Address: [address] [place] [address] Performed By: #### 5 7021-8 ####[facility] LABORATORYCLIA [id number] [place] [address] [place] Lymphocytes/100 WBC (Bld) 6.7 % Normal [facility] Comment on above: Order Comment: Speci men Type: BLOOD SPECIMENOrdering Facility: [facility] Address: [address] [place] [address] Performed By: #### 5 7021-8 ####[facility] LABORATORYCLIA [id number] [address] MCH (RBC) [Entitic mass] 30.7 pg Normal 26.0-34.0 [facility] Comment on above: Order Comment: Speci men Type: BLOOD SPECIMENOrdering Facility: [facility] Address: [address] [place] [address] Performed By: #### 5 7021-8 ####[facility] LABORATORYCLIA [id number] [address] MCHC (RBC) [Mass/Vol] 32.8 g/dL Normal 30.5-36.0 [facility] Comment on above: Order Comment: Speci men Type: BLOOD SPECIMENOrdering Facility: [facility] Address: [address] [place] [address] Performed By: #### 5 7021-8 ####[facility] LABORATORYCLIA [id number] [address] MCV (RBC) [Entitic vol] 93.5 fL Normal 80.0-100.0 [facility] Comment on above: Order Comment: Speci men Type: BLOOD SPECIMENOrdering Facility: [facility] Address: [address] [place] [address] Performed By: #### 5 7021-8 ####[facility] LABORATORYCLIA [id number] [address] Monocytes (Bld) [#/Vol] 0.34 10*3/uL Normal <0.87 [facility] Comment on above: Order Comment: Speci men Type: BLOOD SPECIMENOrdering Facility: [facility] Address: [address] [place] [address] Performed By: #### 5 7021-8 ####[facility] LABORATORYCLIA [id number] [address] Monocytes/100 WBC (Bld) 3.2 % Normal [facility] Comment on above: Order Comment: Speci men Type: BLOOD SPECIMENOrdering Facility: [facility] Address: [address] [place] [address] Performed By: #### 5 7021-8 ####[facility] LABORATORYCLIA [id number] [place] [address] [place] Neutrophils (Bld) [#/Vol] 9.45 10*3/uL High 1.45-7.50 [facility] Comment on above: Order Comment: Speci men Type: BLOOD SPECIMENOrdering Facility: [facility] Address: [address] [place] [address] Performed By: #### 5 7021-8 ####[facility] LABORATORYCLIA [id number] [address] CED Neutrophils/100 WBC (Bld) 89.3 % Normal [facility] Comment on above: Order Comment: Speci men Type: BLOOD SPECIMENOrdering Facility: [facility] Address: [address] [place] [address] Performed By: #### 5 7021-8 ####[facility] LABORATORYCLIA [id number] [place] [address] [place] Nucleated RBC (Bld) [#/Vol] 10*3/uL Normal <0.01 [facility] Comment on above: Order Comment: Speci men Type: BLOOD SPECIMENOrdering Facility: [facility] Address: [address] [place] [address] Performed By: #### 5 7021-8 ####[facility] LABORATORYCLIA [id number] [address] STATES OF CED Nucleated RBC/100 WBC (Bld) [Ratio] 0.0 /100 WBC Normal [facility] Comment on above: Order Comment: Speci men Type: BLOOD SPECIMENOrdering Facility: [facility] Address: [address] [place] [address] Performed By: #### 5 7021-8 ####[facility] LABORATORYCLIA [id number] [place] [address] [place] Platelet mean volume (Bld) [Entitic vol] 10.3 fL Normal 9.0-12.7 [facility] Comment on above: Order Comment: Speci men Type: BLOOD SPECIMENOrdering Facility: [facility] Address: [address] [place] [address] Performed By: #### 5 7021-8 ####[facility] LABORATORYCLIA [id number] [place] [address] [facility] OF CED Platelets (Bld) [#/Vol] 207 10*3/uL Normal 150-400 [facility] Comment on above: Order Comment: Speci men Type: BLOOD SPECIMENOrdering Facility: [facility] Address: [address] [place] [address] Performed By: #### 5 7021-8 ####[facility] LABORATORYCLIA [id number] [place] [address] [facility] OF CED RBC (Bld) [#/Vol] 4.30 10*6/uL Normal 3.90-5.20 [facility] Comment on above: Order Comment: Speci men Type: BLOOD SPECIMENOrdering Facility: [facility] Address: [address] [place] [address] Performed By: #### 5 7021-8 ####[facility] LABORATORYCLIA [id number] [address] OF CED WBC (Bld) [#/Vol] 10.58 10*3/uL Normal 3.70-11.00 [facility] Comment on above: Order Comment: Speci men Type: BLOOD SPECIMENOrdering Facility: [facility] Address: [address] [place] [address] Performed By: #### 5 7021-8 ####[facility] LABORATORYCLIA [id number] [address] CONSULT PROGon 12-08-2024 CONSULT PROG HNO ID: [id number] Author: VIKASH AGEE JR, MD Service: Neurology General Author Type: Physician Type: Consult Progress Note Filed: 12/08/2024 08:40 Note Text: TELENEUROLOGY CONSULT PROGRESS NOTE The Teleneurologist or RONNIE is available from 8 am to 5 pm on weekdays. On weekends, at [facility] and [facility], the Teleneurologist or RONNIE is available from 8 am to 5 pm, [facility] 8 am to 12 pm, [facility] 1 pm to 5 pm, [facility] 8 am to 12 pm, [place] 1 pm to 5 pm. Statutory holidays do not have teleneuro coverage. [facility] : During Off hours for Teleneurology please page (not call) [facility] [address] bilingual receptionist for concerns. [facility]/[place]: During Off hours for Teleneurology please page (not call) [place] [facility] [address] bilingual receptionist for concerns. [facility]: There is no off-hours coverage for Teleneurology. [...] PM me (more content not included)... Normal [facility] MRA BRAIN WO IVCONon 025 MRA BRAIN WO IVCON * * *Final Report* * * DATE OF EXAM: Dec 08 2024 9:30AM [facility] 0272 - MRA BRAIN WO IVCON / PROCEDURE REASON: Headache, new or worsening (Age >= 50y) * * * * Physician Interpretation * * * * EXAMINATION: MRA BRAIN WO IVCON CLINICAL HISTORY: Headache, new or worsening. TECHNIQUE: Routine noncontrast MRI brain protocol including diffusion and gradient echo images. Intracranial 3D jhdl-jl-ejuqus MRA with post-processing performed at the modality [...] territory infarct is partially included within the zffeq-tq-injn on the individual partitions. INTRACRANIAL MRA: Distal [...] or aneurysm. IMPRESSION: Patent intracranial arterial vasculature. [employer] Casting Machine Repairer: P[employer] Transcribe Date/Time: Dec 08 2024 10:06A Dictated by : SHANT SUÁREZ MD This examination was interpreted and the report reviewed and electronically signed by: SHANT SUÁREZ MD on Dec 08 2024 10:11AM EST [id number] Normal [facility] Magnesium SerPl-mCncon 12-08 Magnesium [Mass/Vol] 2.1 mg/dL Normal 1.7-2.3 [facility] Comment on above: Order Comment: Speci men Type: BLOOD SPECIMENOrdering Facility: [facility] Address: [address] [place] [id number] Performed By: #### 2 4321-2, 31024-8 ####[facility] LABORATORYCLIA [id number] [place] [address] [facility] NUTRITIONon 12-08-2024 NUTRITION HNO ID: [id number] Author: GISSEL MAXWELL RD Service: Nutrition Therapy Author Type: [...] 1 unit Time Spent (mins): 3 SIGNATURE: Gsisel Maxwell RD PATIENT NAME: Madiha Perales DATE: December 08, 2024 TIME: 11:20 AM Normal [facility] ALLIED HEALTHon 12-07-2024 ALLIED HEALTH HNO ID: [id number] Author: NELSON EDWARDS CT Service: Radiology Author [...] PATIENT PRESENTS WITH AN IMPLANTABLE OR ATTACHED PILL PACKER: No RADIOLOGY DEPARTMENT: CT; Exam(s) Completed: Brain PERIPHERAL IV DATA: Inpatient: see LDA documentation SIGNED BY: RICHARD Jean December 07, 2024 12:10 PM Normal [facility] Basic metabolic 2000 panelon 12-07-2024 Anion gap [Moles/Vol] 8 mmol/L Normal 8-15 [facility] Comment on above: Order Comment: Yoav lujan Type: BLOOD SPECIMENOrdering Facility: [facility] Address: [address] [place] [address] Performed By: #### 2 432-2, ####[facility] LABORATORYCLIA [id number] [place] [address] [place] [facility] Calcium [Mass/Vol] 8.5 mg/dL Normal 8.5-10.2 [facility] Comment on above: Order Comment: Nehemiahi tai Type: BLOOD SPECIMENOrdering Facility: [facility] Address: [address] [place] [address] Performed By: #### 2 4321-2, ####[facility] LABORATORYCLIA [id number] [place] [address] [place] Chloride [Moles/Vol] 104 mmol/L Normal 98-107 [facility] Comment on above: Order Comment: Yoav lujan Type: BLOOD SPECIMENOrdering Facility: [facility] Address: [address] [place] [address] Performed By: #### 2 4321-2, ####[facility] LABORATORYCLIA [id number] [place] [id number] [place] CO2 [Moles/Vol] 29 mmol/L Normal 22-30 [facility] Comment on above: Order Comment: Speci men Type: BLOOD SPECIMENOrdering Facility: [facility] Address: [address] [place] [address] Performed By: #### 2 2, ####[facility] LABORATORYCLIA [id number] [address] STATES OF CED Creatinine [Mass/Vol] 0.63 mg/dL Normal 0.58-0.96 [facility] Comment on above: Order Comment: Speci men Type: BLOOD SPECIMENOrdering Facility: [facility] Address: [address] [place] [address] Performed By: #### 2 2, ####[facility] LABORATORYCLIA [id number] [address] Creatinine and Glomerular filtration rate.predicted panel (S/P/Bld) 91 mL/min/1.73m??? Normal >=60 [facility] Comment on above: Order Comment: Speci men Type: BLOOD SPECIMENOrdering Facility: [facility] Address: [address] [place] [address] Result Comment: Mateo mated Glomerular Filtration Rate [...] Performed By: #### 2 4322, ####[facility] LABORATORYCLIA [id number] [address] STATES OF [facility] Glucose [Mass/Vol] 92 mg/dL Normal 74-99 [facility] Comment on above: Order Comment: Speci men Type: BLOOD SPECIMENOrdering Facility: [facility] Address: [address] [place] [address] Result Comment: The [place] Diabetes Association (ADA) provides guidance for cutoff [...] Standards of Medical Care in Diabetes 2016, [place] Diabetes Association. Diabetes Care. 2016.39(Suppl 1). Performed By: #### 2 4320-07, ####[facility] LABORATORYCLIA [id number] [place] [address] [place] Potassium [Moles/Vol] 4.0 mmol/L Normal 3.7-5.1 [facility] Comment on above: Order Comment: Yoav lujan Type: BLOOD SPECIMENOrdering Facility: [facility] Address: [address] [place] [address] Performed By: #### 2 4320-07, ####[facility] LABORATORYCLIA [id number] [place] [address] [place] Sodium [Moles/Vol] 141 mmol/L Normal 136-144 [facility] Comment on above: Order Comment: Yoav lujan Type: BLOOD SPECIMENOrdering Facility: [facility] Address: [address] [place] [address] Performed By: #### 2 4320-07, ####[facility] LABORATORYCLIA [id number] [place] [address] [place] Urea nitrogen [Mass/Vol] 14 mg/dL Normal 7-21 [facility] Comment on above: Order Comment: Yoav lujan Type: BLOOD SPECIMENOrdering Facility: [facility] Address: [address] [place] [address] Performed By: #### 2 4320-07, ####[facility] LABORATORYCLIA [id number] [address] CBC panel Auto (Bld)on 12-07 Erythrocyte distribution width (RBC) [Ratio] 13.9 % Normal 11.5-15.0 [facility] Comment on above: Order Comment: Speci men Type: BLOOD SPECIMENOrdering Facility: [facility] Address: [address] [place] [address] Performed By: #### 5 8410-2 ####[facility] LABORATORYCLIA [id number] [address] Hematocrit (Bld) [Volume fraction] 39.9 % Normal 36.0-46.0 [facility] Comment on above: Order Comment: Speci men Type: BLOOD SPECIMENOrdering Facility: [facility] Address: [address] [place] [address] Performed By: #### 5 8410-2 ####[facility] LABORATORYCLIA [id number] [address] Hemoglobin (Bld) [Mass/Vol] 13.0 g/dL Normal 11.5-15.5 [facility] Comment on above: Order Comment: Speci men Type: BLOOD SPECIMENOrdering Facility: [facility] Address: [address] [place] [address] Performed By: #### 5 8410-2 ####[facility] LABORATORYCLIA [id number] [address] MCH (RBC) [Entitic mass] 31.0 pg Normal 26.0-34.0 [facility] Comment on above: Order Comment: Speci men Type: BLOOD SPECIMENOrdering Facility: [facility] Address: [address] [place] [address] Performed By: #### 5 8410-2 ####[facility] LABORATORYCLIA [id number] [address] MCHC (RBC) [Mass/Vol] 32.6 g/dL Normal 30.5-36.0 [facility] [facility] Comment on above: Order Comment: Speci men Type: BLOOD SPECIMENOrdering Facility: [facility] Address: [address] [place] [address] Performed By: #### 5 8410-2 ####[facility] LABORATORYCLIA [id number] [place] [address] [place] MCV (RBC) [Entitic vol] 95.0 fL Normal 80.0-100.0 [facility] Comment on above: Order Comment: Speci men Type: BLOOD SPECIMENOrdering Facility: [facility] Address: [address] [place] [address] Performed By: #### 5 8410-2 ####CON[facility] LABORATORYCLIA [id number] [place] [address] [place] Nucleated RBC (Bld) [#/Vol] 10*3/uL Normal <0.01 [facility] Comment on above: Order Comment: Speci men Type: BLOOD SPECIMENOrdering Facility: [facility] Address: [address] [place] [address] Performed By: #### 5 8410-2 ####CONNER LABORATORYCLIA [id number] [address] [place] Platelet mean volume (Bld) [Entitic vol] 9.8 fL Normal 9.0-12.7 [facility] Comment on above: Order Comment: Speci men Type: BLOOD SPECIMENOrdering Facility: [facility] Address: [address] [place] [address] Performed By: #### 5 8410-2 ####CON[facility] LABORATORYCLIA [id number] [address] [place] Platelets (Bld) [#/Vol] 171 10*3/uL Normal 150-400 [facility] Comment on above: Order Comment: Speci men Type: BLOOD SPECIMENOrdering Facility: [facility] Address: [address] [place] [address] Performed By: #### 5 8410-2 ####CON[facility] LABORATORYCLIA [id number] [address] [place] RBC (Bld) [#/Vol] 4.20 10*6/uL Normal 3.90-5.20 [facility] Comment on above: Order Comment: Speci men Type: BLOOD SPECIMENOrdering Facility: [facility] Address: [address] [place] [address] Performed By: #### 5 8410-2 ####[facility] LABORATORYCLIA [id number] [place] [id number] [facility] WBC (Bld) [#/Vol] 10.27 10*3/uL Normal 3.70-11.00 [facility] Comment on above: Order Comment: Speci men Type: BLOOD SPECIMENOrdering Facility: [facility] Address: [address] [place] [address] Performed By: #### 5 8410-2 ####[facility] LABORATORYCLIA [id number] [place] [id number] [facility] CONSULTon 12-07-2024 CONSULT HNO ID: [id number] Author: KELTON TAYLOR DO Service: General Surgery [...] 6 hours (more content not included)... Normal [facility] CT BRAIN WO IVCONon 12-08-19 CT BRAIN WO IVCON * * *Final Report* * * DATE OF EXAM: Dec 07 2024 12:11PM [facility] - CT BRAIN WO IVCON / [...] change. No intracranial mass effect or hemorrhage. [employer] Machine Repairer: JARVIS Transcribe Date/Time: Dec 07 2024 12:40P Dictated by : SADAF KAUR MD This examination was interpreted and the report reviewed and electronically signed by: SADAF KAUR MD on Dec 07 2024 12:43PM EST [id number] Normal [facility] ESR Westergren method (Bld) [Velocity]on 12-07-2024 ESR (Bld) [Velocity] 45 mm/h High 0-20 [facility] Comment on above: Order Comment: Yoav lujan Type: BLOOD SPECIMENOrdering Facility: [facility] Address: [address] [place] [address] Performed By: #### 4 537-7 ####[facility] LABCLIA [id number] [address] [place] Magnesium SerPl-mCncon 12-07 Magnesium [Mass/Vol] 2.1 mg/dL Normal 1.7-2.3 [facility] Comment on above: Order Comment: Yoav lujan Type: BLOOD SPECIMENOrdering Facility: [facility] Address: [address] [place] [address] Performed By: #### 2 4321-2, 09767-9 ####[facility] LABORATORYCLIA [id number] [place] [address] [place] THERAPY NTon 12-07-2024 THERAPY NT HNO ID: [id number] Author: LOBITO CAVAZOS PT Service: Physical Therapy Author Type: Physical Therapist Type: Therapy (PT/OT/Speech/Resp) Filed: 12/07/2024 11:41 Note Text: Summary: PT treatment/lprecert Physical Therapy Treatment Summary SERVICE DATE: 12/07/2024 SERVICE TIME: 1042 to 1117 ROOM: [id number] PT 6 Clicks Score: 13 DISCHARGE RECOMMENDATIONS [...] toilet. Spouse assists with toilet transfer at [facility], spouse completes hygiene, some incontinent epsidoes Pt spends all day in lift chair when not at daycare and spouse helps her out. Spouse report (more content not included)... [facility] THERAPY NT HNO ID: [id number] Author: ORQUIDEA VELÁZQUEZ OT/West Service: Occupational Therapy Author Type: Occupational Therapist Type: Therapy (PT/OT/Speech/Resp) Filed: 12/07/2024 09:53 Note Text: Summary: OT Treatment Occupational Therapy Treatment Summary SERVICE DATE: 12/07/2024 SERVICE TIME: 924 ROOM: [id number] OT 6 Clicks Score: 9 DISCHARGE RECOMMENDATIONS [...] toilet. Spouse assists with toilet transfer at [facility], spouse completes hygiene, some incontinent epsidoes [...] Prison Manag (more content not included)... Normal [facility] Basic metabolic 2000 panelon 12-06-2024 Anion gap [Moles/Vol] 10 mmol/L Normal 8-15 [facility] Comment on above: Order Comment: Yoav lujan Type: BLOOD SPECIMENOrdering Facility: [facility] Address: [address] [place] [address] Performed By: #### 2 43206-24, ####[facility] LABORATORYCLIA [id number] [place] [address] [place] Calcium [Mass/Vol] 8.7 mg/dL Normal 8.5-10.2 [facility] Comment on above: Order Comment: Yoav lujan Type: BLOOD SPECIMENOrdering Facility: [facility] Address: [address] [place] [id number] Performed By: #### 2 4321-2, ####[facility] LABORATORYCLIA [id number] [place] [address] [place] Chloride [Moles/Vol] 103 mmol/L Normal 98-107 [facility] Comment on above: Order Comment: Speci men Type: BLOOD SPECIMENOrdering Facility: [facility] Address: [address] [place] [address] Performed By: #### 2 1-2, ####CON[facility] LABORATORYCLIA [id number] [address] CO2 [Moles/Vol] 26 mmol/L Normal 22-30 [facility] Comment on above: Order Comment: Speci men Type: BLOOD SPECIMENOrdering Facility: [facility] Address: [address] [place] [address] Performed By: #### 2 2, ####CON[facility] LABORATORYCLIA [id number] [address] Creatinine [Mass/Vol] 0.60 mg/dL Normal 0.58-0.96 [facility] Comment on above: Order Comment: Nehemiahi men Type: BLOOD SPECIMENOrdering Facility: [facility] Address: [address] [place] [address] Performed By: #### 2 2, ####[facility] LABORATORYCLIA [id number] [address] Creatinine and Glomerular filtration rate.predicted panel (S/P/Bld) 92 mL/min/1.73m??? Normal >=60 [facility] Comment on above: Order Comment: Yoav men Type: BLOOD SPECIMENOrdering Facility: [facility] Address: [address] [place] [address] Result Comment: Mateo mated Glomerular Filtration Rate [...] Performed By: #### 2 4321-2, ####CON[facility] LABORATORYCLIA [id number] [place] [address] [place] Glucose [Mass/Vol] 103 mg/dL High 74-99 [facility] Comment on above: Order Comment: Yoav lujan Type: BLOOD SPECIMENOrdering Facility: [facility] Address: [address] [place] [address] Result Comment: The [place] Diabetes Association (ADA) provides guidance for cutoff [...] Standards of Medical Care in Diabetes 2016, [place] Diabetes Association. Diabetes Care. 2016.39(Suppl 1). Performed By: #### 2 4320-, ####CON[facility] LABORATORYCLIA [id number] [place] [address] [place] Potassium [Moles/Vol] 4.0 mmol/L Normal 3.7-5.1 [facility] Comment on above: Order Comment: Yoav lujan Type: BLOOD SPECIMENOrdering Facility: [facility] Address: [address] [place] [address] Performed By: #### 2 4320-, ####CON[facility] LABORATORYCLIA [id number] [place] [address] [place] Sodium [Moles/Vol] 139 mmol/L Normal 136-144 [facility] Comment on above: Order Comment: Yoav lujan Type: BLOOD SPECIMENOrdering Facility: [facility] Address: [address] [place] [address] Performed By: #### 2 4320-07, ####CON[facility] LABORATORYCLIA [id number] [place] [address] [place] Urea nitrogen [Mass/Vol] 13 mg/dL Normal 7-21 [facility] Comment on above: Order Comment: Nehemiahi men Type: BLOOD SPECIMENOrdering Facility: [facility] Address: [address] [place] [address] Performed By: #### 2 4321-2, 48402-6 ####CON[facility] LABORATORYCLIA [id number] [address] CBC panel Auto (Bld)on 12-06 Erythrocyte distribution width (RBC) [Ratio] 13.8 % Normal 11.5-15.0 [facility] Comment on above: Order Comment: Speci men Type: BLOOD SPECIMENOrdering Facility: [facility] Address: [address] [place] [address] Performed By: #### 5 8410-2 ####CON[facility] LABORATORYCLIA [id number] [address] Hematocrit (Bld) [Volume fraction] 40.6 % Normal 36.0-46.0 [facility] Comment on above: Order Comment: Speci men Type: BLOOD SPECIMENOrdering Facility: [facility] Address: [address] [place] [address] Performed By: #### 5 8410-2 ####CON[facility] LABORATORYCLIA [id number] [address] Hemoglobin (Bld) [Mass/Vol] 13.5 g/dL Normal 11.5-15.5 [facility] Comment on above: Order Comment: Speci men Type: BLOOD SPECIMENOrdering Facility: [facility] Address: [address] [place] [address] Performed By: #### 5 8410-2 ####CON[facility] LABORATORYCLIA [id number] [address] MCH (RBC) [Entitic mass] 31.1 pg Normal 26.0-34.0 [facility] Comment on above: Order Comment: Speci men Type: BLOOD SPECIMENOrdering Facility: [facility] Address: [address] [place] [address] Performed By: #### 5 8410-2 ####CON[facility] LABORATORYCLIA [id number] [address] MCHC (RBC) [Mass/Vol] 33.3 g/dL Normal 30.5-36.0 [facility] Comment on above: Order Comment: Speci men Type: BLOOD SPECIMENOrdering Facility: [facility] Address: [facility] [place] [address] Performed By: #### 5 8410-2 ####CONNER LABORATORYCLIA [id number] [place] [address] [place] MCV (RBC) [Entitic vol] 93.5 fL Normal 80.0-100.0 [facility] Comment on above: Order Comment: Speci men Type: BLOOD SPECIMENOrdering Facility: [facility] Address: [address] [place] [address] Performed By: #### 5 8410-2 ####CON[facility] LABORATORYCLIA [id number] [place] [address] [place] Nucleated RBC (Bld) [#/Vol] 10*3/uL Normal <0.01 [facility] Comment on above: Order Comment: Speci men Type: BLOOD SPECIMENOrdering Facility: [facility] Address: [address] [place] [address] Performed By: #### 5 8410-2 ####CON[facility] LABORATORYCLIA [id number] [place] [address] [place] Platelet mean volume (Bld) [Entitic vol] 9.9 fL Normal 9.0-12.7 [facility] Comment on above: Order Comment: Speci men Type: BLOOD SPECIMENOrdering Facility: [facility] Address: [address] [place] [address] Performed By: #### 5 8410-2 ####CONNER LABORATORYCLIA [id number] [place] [address] [place] Platelets (Bld) [#/Vol] 183 10*3/uL Normal 150-400 [facility] Comment on above: Order Comment: Speci men Type: BLOOD SPECIMENOrdering Facility: [facility] Address: [address] [place] [address] Performed By: #### 5 8410-2 ####CONNER LABORATORYCLIA [id number] [place] [id number] [place] RBC (Bld) [#/Vol] 4.34 10*6/uL Normal 3.90-5.20 [facility] Comment on above: Order Comment: Speci men Type: BLOOD SPECIMENOrdering Facility: [facility] Address: [address] [place] [address] Performed By: #### 5 8410-2 ####CON[facility] LABORATORYCLIA [id number] [place] [id number] [place] WBC (Bld) [#/Vol] 11.94 10*3/uL High 3.70-11.00 [facility] Comment on above: Order Comment: Speci men Type: BLOOD SPECIMENOrdering Facility: [facility] Address: [address] [place] [address] Performed By: #### 5 8410-2 ####[facility] LABORATORYCLIA [id number] [address] [place] Magnesium SerPl-mCncon 12-06 Magnesium [Mass/Vol] 2.0 mg/dL Normal 1.7-2.3 [facility] Comment on above: Order Comment: Speci men Type: BLOOD SPECIMENOrdering Facility: [facility] Address: [address] [place] [address] Performed By: #### 2 4321-2, 62520-1 ####CON[facility] LABORATORYCLIA [id number] [place] [id number] [facility] OF CED THERAPY NTon 12-06-2024 THERAPY NT HNO ID: [id number] Author: ORQUIDEA VELÁZQUEZ OT/West Service: Occupational Therapy Author Type: Occupational Therapist Type: Therapy (PT/OT/Speech/Resp) Filed: 12/06/2024 13:57 Note Text: OCCUPATIONAL THERAPY MISSED VISIT SERVICE DATE: 12/06/2024 SERVICE TIME: 1355 ROOM: [place] [address] Patient not seen due to Test / Procedure. EEG being complete at pt's bedside. Will re-attempt as schedule allows. CM notified as this pt has precert needs. SIGNATURE: Orquidea Velázquez OT/West PATIENT NAME: Madiha Perales DATE: December 06, 2024 TIME: 1:57 PM [facility] THERAPY NT HNO ID: [id number] Author: LIGIA MACIEL CCC-PHLEBOTOMY SERVICES REPRESENTATIVE Service: Speech/Swallow Author Type: Speech Language Pathologist Type: Therapy (PT/OT/Speech/Resp) Filed: 12/06/2024 12:41 Note Text: Summary: Dysphagia Therapy Speech Therapy Treatment SERVICE DATE: 12/06/2024 SERVICE TIME: 1209 to 1239 ROOM: [place] [address] IMPRESSION Swallow Deficits Identified / Suspected: Oral [...] Dysphagia, oral phase TREATMENT INTERVENTIONS Dysphagia Therapy (73063) Skilled Treatment Time (minutes): 30 TRAINING AND [...] next visit: Dysphagia Management, Caregiver Education SIGNATURE: Ligia Martin [facility]-PHLEBOTOMY SERVICES REPRESENTATIVE PATIENT NAME: P (more content not included)... Normal [facility] Basic metabolic 2000 panelon 12-05-2024 Anion gap [Moles/Vol] 10 mmol/L Normal 8-15 [facility] Comment on above: Order Comment: Speci men Type: BLOOD SPECIMENOrdering Facility: [facility] Address: [address] [place] [address] Performed By: #### 2 4320-2, ####[facility] LABORATORYCLIA [id number] [place] [address] [place] Calcium [Mass/Vol] 8.6 mg/dL Normal 8.5-10.2 [facility] Comment on above: Order Comment: Speci men Type: BLOOD SPECIMENOrdering Facility: [facility] Address: [address] [place] [address] Performed By: #### 2 2, ####CON[facility] LABORATORYCLIA [id number] [place] [id number] [place] Chloride [Moles/Vol] 102 mmol/L Normal 98-107 [facility] Comment on above: Order Comment: Speci men Type: BLOOD SPECIMENOrdering Facility: [facility] Address: [address] [place] [address] Performed By: #### 2 2, ####CON[facility] LABORATORYCLIA [id number] [place] [address] [place] CO2 [Moles/Vol] 27 mmol/L Normal 22-30 [facility] Comment on above: Order Comment: Speci men Type: BLOOD SPECIMENOrdering Facility: [facility] Address: [address] [place] [address] Performed By: #### 2 2, ####CON[facility] LABORATORYCLIA [id number] [place] [address] [place] Creatinine [Mass/Vol] 0.58 mg/dL Normal 0.58-0.96 [facility] Comment on above: Order Comment: Speci men Type: BLOOD SPECIMENOrdering Facility: [facility] Address: [address] [place] [address] Performed By: #### 2 4321-2, ####CON[facility] LABORATORYCLIA [id number] [place] [address] [place] Creatinine and Glomerular filtration rate.predicted panel (S/P/Bld) 93 mL/min/1.73m??? Normal >=60 [facility] Comment on above: Order Comment: Yoav lujan Type: BLOOD SPECIMENOrdering Facility: [facility] Address: [address] [place] [address] Result Comment: Mateo mated Glomerular Filtration Rate [...] Performed By: #### 2 432-, ####CON[facility] LABORATORYCLIA [id number] [place] [address] [place] Glucose [Mass/Vol] 100 mg/dL High 74-99 [facility] Comment on above: Order Comment: Yoav lujan Type: BLOOD SPECIMENOrdering Facility: [facility] Address: [address] [place] [address] Result Comment: The [place] Diabetes Association (ADA) provides guidance for cutoff [...] Standards of Medical Care in Diabetes 2016, [place] Diabetes Association. Diabetes Care. 2016.39(Suppl 1). Performed By: #### 2 4321-2, ####CON[facility] LABORATORYCLIA [id number] [place] [address] [place] Potassium [Moles/Vol] 4.2 mmol/L Normal 3.7-5.1 [facility] Comment on above: Order Comment: Speci men Type: BLOOD SPECIMENOrdering Facility: [facility] Address: [address] [place] [address] Performed By: #### 2 4321-2, ####CON[facility] LABORATORYCLIA [id number] [place] [address] [place] Sodium [Moles/Vol] 139 mmol/L Normal 136-144 [facility] Comment on above: Order Comment: Speci men Type: BLOOD SPECIMENOrdering Facility: [facility] Address: [address] [place] [address] Performed By: #### 2 4321-2, ####CON[facility] LABORATORYCLIA [id number] [address] STATES [place] Urea nitrogen [Mass/Vol] 15 mg/dL Normal 7-21 [facility] Comment on above: Order Comment: Speci men Type: BLOOD SPECIMENOrdering Facility: [facility] Address: [address] [place] [address] Performed By: #### 2 4321-2, ####CON[facility] LABORATORYCLIA [id number] [address] STATES [place] CBC W Auto Differential pane l (Bld)on 12-05-2024 Basophils (Bld) [#/Vol] 0.04 10*3/uL Normal <0.11 [facility] Comment on above: Order Comment: Speci men Type: BLOOD SPECIMENOrdering Facility: [facility] Address: [address] [place] [address] Performed By: #### 5 7021-8 ####CON[facility] LABORATORYCLIA [id number] [address] STATES [facility] Basophils/100 WBC (Bld) 0.4 % Normal [facility] Comment on above: Order Comment: Speci men Type: BLOOD SPECIMENOrdering Facility: [facility] Address: [address] [place] [address] Performed By: #### 5 7021-8 ####CON[facility] LABORATORYCLIA [id number] [address] C[place] Differential cell count method Nom (Bld) Auto Normal [facility] Comment on above: Order Comment: Speci men Type: BLOOD SPECIMENOrdering Facility: [facility] Address: [address] [place] [address] Performed By: #### 5 7021-8 ####CON[facility] LABORATORYCLIA [id number] [place] [address] [place] Eosinophils (Bld) [#/Vol] 0.13 10*3/uL Normal <0.46 [facility] Comment on above: Order Comment: Speci men Type: BLOOD SPECIMENOrdering Facility: [facility] Address: [address] [place] [address] Performed By: #### 5 7021-8 ####CON[facility] LABORATORYCLIA [id number] [place] [address] [place] Eosinophils/100 WBC (Bld) 1.3 % Normal [facility] Comment on above: Order Comment: Speci men Type: BLOOD SPECIMENOrdering Facility: [facility] Address: [address] [place] [address] Performed By: #### 5 7021-8 ####CON[facility] LABORATORYCLIA [id number] [address] C[place] Erythrocyte distribution width (RBC) [Ratio] 13.9 % Normal 11.5-15.0 [facility] Comment on above: Order Comment: Speci men Type: BLOOD SPECIMENOrdering Facility: [facility] Address: [address] [place] [address] Performed By: #### 5 7021-8 ####CON[facility] LABORATORYCLIA [id number] [address] OF CED Hematocrit (Bld) [Volume fraction] 41.5 % Normal 36.0-46.0 [facility] Comment on above: Order Comment: Speci men Type: BLOOD SPECIMENOrdering Facility: [facility] Address: [address] [place] [address] Performed By: #### 5 7021-8 ####CON[facility] LABORATORYCLIA [id number] [place] [address] [place] Hemoglobin (Bld) [Mass/Vol] 13.5 g/dL Normal 11.5-15.5 [facility] Comment on above: Order Comment: Speci men Type: BLOOD SPECIMENOrdering Facility: [facility] Address: [address] [place] [address] Performed By: #### 5 7021-8 ####CON[facility] LABORATORYCLIA [id number] [place] [address] [place] Immature granulocytes (Bld) [#/Vol] 0.03 10*3/uL Normal <0.10 [facility] Comment on above: Order Comment: Speci men Type: BLOOD SPECIMENOrdering Facility: [facility] Address: [address] [place] [address] Performed By: #### 5 7021-8 ####[facility] LABORATORYCLIA [id number] [address] STATES OF CED Immature granulocytes/100 WBC (Bld) 0.3 % Normal [facility] Comment on above: Order Comment: Speci men Type: BLOOD SPECIMENOrdering Facility: [facility] Address: [address] [place] [address] Performed By: #### 5 7021-8 ####CON[facility] LABORATORYCLIA [id number] [place] [address] [place] Lymphocytes (Bld) [#/Vol] 0.96 10*3/uL Low 1.00-4.00 [facility] Comment on above: Order Comment: Speci men Type: BLOOD SPECIMENOrdering Facility: [facility] Address: [address] [place] [address] Performed By: #### 5 7021-8 ####CON[facility] LABORATORYCLIA [id number] [address] OF CED Lymphocytes/100 WBC (Bld) 9.6 % Normal [facility] Comment on above: Order Comment: Speci men Type: BLOOD SPECIMENOrdering Facility: [facility] Address: [address] [place] [address] Performed By: #### 5 7021-8 ####CON[facility] LABORATORYCLIA [id number] [address] C[place] MCH (RBC) [Entitic mass] 30.7 pg Normal 26.0-34.0 [facility] Comment on above: Order Comment: Speci men Type: BLOOD SPECIMENOrdering Facility: [facility] Address: [address] [place] [address] Performed By: #### 5 7021-8 ####CON[facility] LABORATORYCLIA [id number] [place] [address] [place] MCHC (RBC) [Mass/Vol] 32.5 g/dL Normal 30.5-36.0 [facility] Comment on above: Order Comment: Speci men Type: BLOOD SPECIMENOrdering Facility: [facility] Address: [address] [place] [address] Performed By: #### 5 7021-8 ####CON[facility] LABORATORYCLIA [id number] [address] MCV (RBC) [Entitic vol] 94.3 fL Normal 80.0-100.0 [facility] Comment on above: Order Comment: Speci men Type: BLOOD SPECIMENOrdering Facility: [facility] Address: [address] [place] [address] Performed By: #### 5 7021-8 ####CON[facility] LABORATORYCLIA [id number] [place] [address] [place] Monocytes (Bld) [#/Vol] 0.92 10*3/uL High <0.87 [facility] Comment on above: Order Comment: Speci men Type: BLOOD SPECIMENOrdering Facility: [facility] Address: [address] [place] [address] Performed By: #### 5 7021-8 ####CON[facility] LABORATORYCLIA [id number] [address] Monocytes/100 WBC (Bld) 9.2 % Normal [facility] Comment on above: Order Comment: Speci men Type: BLOOD SPECIMENOrdering Facility: [facility] Address: [address] [place] [address] Performed By: #### 5 7021-8 ####CON[facility] LABORATORYCLIA [id number] [place] [address] [place] Neutrophils (Bld) [#/Vol] 7.94 10*3/uL High 1.45-7.50 [facility] Comment on above: Order Comment: Speci men Type: BLOOD SPECIMENOrdering Facility: [facility] Address: [address] [place] [address] Performed By: #### 5 7021-8 ####CONNER LABORATORYCLIA [id number] [place] [address] [place] Neutrophils/100 WBC (Bld) 79.2 % Normal [facility] Comment on above: Order Comment: Speci men Type: BLOOD SPECIMENOrdering Facility: [facility] Address: [address] [place] [address] Performed By: #### 5 7021-8 ####[facility] LABORATORYCLIA [id number] [place] [address] [place] Nucleated RBC (Bld) [#/Vol] 10*3/uL Normal <0.01 [facility] Comment on above: Order Comment: Speci men Type: BLOOD SPECIMENOrdering Facility: [facility] Address: [address] [place] [address] Performed By: #### 5 7021-8 ####[facility] LABORATORYCLIA [id number] [place] [address] [place] Nucleated RBC/100 WBC (Bld) [Ratio] 0.0 /100 WBC Normal [facility] Comment on above: Order Comment: Speci men Type: BLOOD SPECIMENOrdering Facility: [facility] Address: [address] [place] [address] Performed By: #### 5 7021-8 ####[facility] LABORATORYCLIA [id number] [place] [address] [place] Platelet mean volume (Bld) [Entitic vol] 9.8 fL Normal 9.0-12.7 [facility] Comment on above: Order Comment: Speci men Type: BLOOD SPECIMENOrdering Facility: [facility] Address: [address] [place] [address] Performed By: #### 5 7021-8 ####[facility] LABORATORYCLIA [id number] [address] Platelets (Bld) [#/Vol] 182 10*3/uL Normal 150-400 [facility] Comment on above: Order Comment: Speci men Type: BLOOD SPECIMENOrdering Facility: [facility] Address: [address] [place] [address] Performed By: #### 5 7021-8 ####[facility] LABORATORYCLIA [id number] [address] [place] RBC (Bld) [#/Vol] 4.40 10*6/uL Normal 3.90-5.20 [facility] Comment on above: Order Comment: Speci men Type: BLOOD SPECIMENOrdering Facility: [facility] Address: [address] [place] [address] Performed By: #### 5 7021-8 ####[facility] LABORATORYCLIA [id number] [address] [place] WBC (Bld) [#/Vol] 10.02 10*3/uL Normal 3.70-11.00 [facility] Comment on above: Order Comment: Speci men Type: BLOOD SPECIMENOrdering Facility: [facility] Address: [address] [place] [address] Performed By: #### 5 7021-8 ####[facility] LABORATORYCLIA [id number] [address] CONSULT PROGon 12-05-2024 CONSULT PROG HNO ID: [id number] Author: RACHEAL DE LA ROSA MD Service: Neurology General Author Type: Physician Type: Consult Progress Note Filed: 12/05/2024 08:45 Note Text: TELENEUROLOGY CONSULT PROGRESS NOTE Patient seen using [facility]. Recommendations are placed in the chart. Please review. For questions after hours, when teleneurologist is not available, for [facility]: Please Page [phone] for the [facility] from noon to 8am Please [...] 2024 TIME: 8:26 AM PAGER/CONTACT #: Normal [facility] Magnesium SerPl-mCncon 12-05 Magnesium [Mass/Vol] 2.1 mg/dL Normal 1.7-2.3 [facility] Comment on above: Order Comment: Speci men Type: BLOOD SPECIMENOrdering Facility: [facility] Address: [address] [place] [address] Performed By: #### 2 4321-2, 47095-3 ####[facility] LABORATORYCLIA [id number] [place], [place] [id number] [place] [address] ARTERIAL BLOOD GASESon 12-04 Carboxyhemoglobin (BldA) [Mass fraction] 1.4 % Normal 0.0-2.0 [facility] Comment on above: Order Comment: Speci men Type: ARTERIAL BLOOD SPECIMENOrdering Facility: [facility] Address: [address] [place] [address] Result Comment: Carb oxyhemoglobin Reference Range for Smokers: 2.0-8.0% Performed By: #### A LLBG ####[facility] RESPIRATORYCLIA [id number] [facility] RESPIRATORY [id number] [place] [id number] CO2 (Bld) [Partial pressure] 46 mm Hg Normal 36-46 [facility] Comment on above: Order Comment: Speci men Type: ARTERIAL BLOOD SPECIMENOrdering Facility: [facility] Address: [address] [place], [place] [address] Performed By: #### A LLBG ####[facility] RESPIRATORYCLIA [id number] [facility] RESPIRATORY [id number] [address] [address] CO2 adjusted to patient's actual temperature (Bld) [Partial pressure] Normal [facility] Comment on above: Order Comment: Speci men Type: ARTERIAL BLOOD SPECIMENOrdering Facility: [facility] Address: [address] [place] [address] Performed By: #### A LLBG ####[facility] RESPIRATORYCLIA [id number] [facility] RESPIRATORY [id number] [address] [address] HCO3 (Bld) [Moles/Vol] 31 mmol/L High 22-26 [facility] Comment on above: Order Comment: Speci men Type: ARTERIAL BLOOD SPECIMENOrdering Facility: [facility] Address: [address] [place] [address] Performed By: #### A LLBG ####[facility]ATORYPROCTOR [facility] [id number] [facility] RESPIRATORY [id number] [address] [address] Hemoglobin (Bld) [Mass/Vol] 14.6 g/dL Normal 11.5-15.5 [facility] Comment on above: Order Comment: Speci men Type: ARTERIAL BLOOD SPECIMENOrdering Facility: [facility] Address: [address] [place] [address] Performed By: #### A LLBG ####[facility]IRATORYPROCTOR [facility]OSP[facility] [id number] [facility]OS[facility] RESPIRATORY [id number] [address] Lactate [Moles/Vol] 0.9 mmol/L Normal 0.5-2.2 [facility] Comment on above: Order Comment: Speci men Type: ARTERIAL BLOOD SPECIMENOrdering Facility: [facility] Address: [address] [place] [address] Performed By: #### A LLBG ####[facility] [id number] [facility]OSPITAL RESPIRATORY [id number] [address] [address] LITERS 2 Liters/min Normal [facility] Comment on above: Order Comment: Speci men Type: ARTERIAL BLOOD SPECIMENOrdering Facility: [facility] Address: [address] [place] [address] Performed By: #### A LLBG ####[facility] [id number] [place] [address] RESPIRATORY [id number] [address] Methemoglobin (Bld) [Mass fraction] % Normal 0.0-1.5 [facility] Comment on above: Order Comment: Speci men Type: ARTERIAL BLOOD SPECIMENOrdering Facility: [facility] Address: [address], [place] [address] Performed By: #### A LLBG ####[facility] [id number] [facility]OS[facility] RESPIRATORY [id number] [address] [address] O2 THERAPY NC = Nasal Cannula Normal [facility] Comment on above: Order Comment: Speci men Type: ARTERIAL BLOOD SPECIMENOrdering Facility: [facility] Address: [address] [place] [address] Performed By: #### A LLBG ####[facility] [id number] [facility]OSPITAL RESPIRATORY [id number] [address] [address] Oxygen (Bld) [Partial pressure] 70 mm Hg Low 85-95 [facility] Comment on above: Order Comment: Speci men Type: ARTERIAL BLOOD SPECIMENOrdering Facility: [facility] Address: [address] [place] [id number] Performed By: #### A LLBG ####[place] [id number] [place] [address] RESPIRATORY [id number] [address] [address] Oxygen adjusted to patient's actual temperature (Bld) [Partial pressure] Normal [facility] Comment on above: Order Comment: Speci men Type: ARTERIAL BLOOD SPECIMENOrdering Facility: [facility] Address: [address] [place] [id number] Performed By: #### A LLBG ####[facility] [id number] [facility]OSPITAL RESPIRATORY [id number] [address] [address] Oxyhemoglobin (BldA) [Mass fraction] 94 % Low 95-98 [facility] Comment on above: Order Comment: Speci men Type: ARTERIAL BLOOD SPECIMENOrdering Facility: [facility] Address: [address] [place] [address] Performed By: #### A LLBG ####[place] [id number] [place] [address] RESPIRATORY [id number] [address] pH (Bld) 7.43 [pH] Normal 7.35-7.45 [facility] Comment on above: Order Comment: Speci men Type: ARTERIAL BLOOD SPECIMENOrdering Facility: [facility] Address: [address] [place], [place] [address] Performed By: #### A LLBG ####[facility] RESPIRATORYCLIA [id number] [facility] RESPIRATORY [id number] [address] [address] pH adjusted to patient's actual temperature (Bld) Normal [facility] Comment on above: Order Comment: Speci men Type: ARTERIAL BLOOD SPECIMENOrdering Facility: [facility] Address: [address] [place], [place] [address] Performed By: #### A LLBG ####[facility] RESPIRATORYCLIA [id number] [facility]OS[facility] RESPIRATORY [id number] [address] Potassium [Moles/Vol] 3.9 mmol/L Normal 3.5-5.0 [facility] Comment on above: Order Comment: Speci men Type: ARTERIAL BLOOD SPECIMENOrdering Facility: [facility] Address: [address] [place] [address] Performed By: #### A LLBG ####[facility] RESPIRATORYCLIA [id number] [facility] RESPIRATORY [id number] [address] Ammonia Plas-sCncon 12-05-19 25 Ammonia (P) [Moles/Vol] 29 umol/L Normal 11-51 [facility] Comment on above: Order Comment: Speci men Type: BLOOD SPECIMENOrdering Facility: [facility] Address: [address] [place] [address] Performed By: #### 1 6362-6 ####[facility] LABORATORYCLIA [id number] [place] [address] [facility] CONSULTon 12-04-2024 CONSULT HNO ID: [id number] Author: RACHEAL DE LA ROSA MD Service: [...] pm [place]: 1 pm to 5 pm [facility]: 3 pm to 5 pm Statutory holidays do not have teleneuro coverage. [facility]/[place] : During Off hours for Teleneurology please page (not call) [facility] [phone] bilingual receptionist for concerns. [place]: During Off hours for Teleneurology please page (not call) [place] [facility] [address] bilingual receptionist for concerns. [facility]: There is no off-hours coverage for Teleneurology. [...] for her cancer. Her neurologist is at [facility]. She is on sinemet [...] upper-outer (more content not included)... [facility] THERAPY NTon 12-04-2024 THERAPY NT HNO ID: [id number] Author: ALAN IBANEZ OTR/West Service: Occupational Therapy Author Type: Occupational Therapist Type: Therapy (PT/OT/Speech/Resp) Filed: 12/04/2024 14:53 Note Text: Summary: OT Eval Occupational Therapy Evaluation Summary SERVICE DATE: 12/04/2024 SERVICE TIME: 1338 to 1428 ROOM: [id number] OT 6 Clicks Score: 9 DISCHARGE RECOMMENDATIONS [...] toilet. Spouse assists with toilet transfer at [facility], spouse completes hygiene, some incontinent epsidoes [...] Evaluation, Therapeutic (more content not included)... Normal [facility] THERAPY NT HNO ID: [id number] Author: LEANNE HYATT CCC-PHLEBOTOMY SERVICES REPRESENTATIVE Service: Speech/Swallow Author Type: Speech Language Pathologist Type: Therapy (PT/OT/Speech/Resp) Filed: 12/04/2024 12:43 Note Text: Speech Therapy Clinical Swallow Evaluation, Speech Evaluation SERVICE DATE: 12/04/2024 SERVICE TIME: 1158 to 1239 ROOM: [place] [address] IMPRESSION Functional communication without limitations in: Speech, [...] doing ok patient's daughter and state when PHLEBOTOMY SERVICES REPRESENTATIVE woke pt up and spoke with her for a minute that it was the most responsive pt had been since being admitted to the hospital THERAPY DIAGNOSIS Cognitive-Communicati on Deficits, Dysphagia, oral phase TREATMENT INTERVENTIONS Speech Language Eval (13818), Clinical Swallow Evaluation (09584) Skilled Treatment Time (minutes): 41 TRAINING AND [...] chews when nothing is in her mouth. PHLEBOTOMY SERVICES REPRESENTATIVE recommends follow up for cognition and assurance of tolerance of regular diet. Compensatory Strategies Utilized During Assessment: 1:1 Supervision, Alert (patient should be fully alert for P.O. intake), Alternate bites and sips, Small Bite/Sip Marta Swallow Protocol: Pass Suspected Esophageal Deficits: none suspected GOALS COGNITION: Patient will demonstrate knowledge of (more content not included)... [facility] THERAPY NT HNO ID: [id number] Author: ALAN IBANEZ OTR/L Service: Occupational Therapy Author Type: Occupational Therapist Type: Therapy (PT/OT/Speech/Resp) Filed: 12/04/2024 10:25 Note Text: Summary: OT MV OCCUPATIONAL THERAPY MISSED VISIT SERVICE DATE: 12/04/2024 SERVICE TIME: 1024 ROOM: [place] [address] Patient not seen due to Patient Not Available. Neuro at bedside. Will reattempt as schedule permits. SIGNATURE: JESSY Jiménez PATIENT NAME: Madiha Perales DATE: December 04, 2024 TIME: 10:24 AM [facility] THERAPY NT HNO ID: [id number] Author: GAYE PACHECO PT Service: Physical Therapy Author Type: Physical Therapist Type: Therapy (PT/OT/Speech/Resp) Filed: 12/04/2024 09:20 Note Text: Summary: PT Evaluation Physical Therapy Evaluation Summary SERVICE DATE: 12/04/2024 SERVICE TIME: 836 to 905 ROOM: [place] [address] PT 6 Clicks Score: 8 DISCHARGE RECOMMENDATIONS [...] pt ag (more content not included)... Normal [facility] TOXICOLOGY SCREEN, ROUTINE U RINEon 12-04-2024 Amphetamines Confirm (U) [Mass/Vol] Negative Normal Negative [facility] Comment on above: Order Comment: Speci men Type: URINE SPECIMENOrdering Facility: [facility] Address: [address] [place] [address] Result Comment: Cuto ff threshold at 1000 ng/mL. Performed By: #### U TOX2 ####[facility] LABORATORYCLIA [id number] [address] [place] BARBITURATES, URINE Negative Normal Negative [facility] Comment on above: Order Comment: Speci men Type: URINE SPECIMENOrdering Facility: [facility] Address: [address] [place] [address] Result Comment: Cuto ff threshold at 200 ng/mL. Performed By: #### U TOX2 ####[facility] LABORATORYCLIA [id number] [place] [address] [place] BENZODIAZEPINES, UR Negative Normal Negative [facility] Comment on above: Order Comment: Speci men Type: URINE SPECIMENOrdering Facility: [facility] Address: [address] [place] [address] Result Comment: Cuto ff threshold at 200 ng/mL. Performed By: #### U TOX2 ####[facility] LABORATORYCLIA [id number] [place] [address] [place] Cannabinoids Screen Ql (U) Negative Normal Negative [facility] Comment on above: Order Comment: Speci men Type: URINE SPECIMENOrdering Facility: [facility] Address: [address] [place] [address] Result Comment: Cuto ff threshold at 50 ng/mL. Performed By: #### U TOX2 ####[facility] LABORATORYCLIA [id number] [place] [address] [place] Cocaine Ql (U) Negative Normal Negative [facility] Comment on above: Order Comment: Speci men Type: URINE SPECIMENOrdering Facility: [facility] Address: [address] [place] [address] Result Comment: Cuto ff threshold at 300 ng/mL. Performed By: #### U TOX2 ####[facility] LABORATORYCLIA [id number] [address] [place] Ethanol (U) [Mass/Vol] <11 Normal <11 [facility] Comment on above: Order Comment: Speci men Type: URINE SPECIMENOrdering Facility: [facility] Address: [address] [place] [address] Performed By: #### U TOX2 ####[facility] LABORATORYCLIA [id number] [address] Opiates Screen Ql (U) Negative Normal Negative [facility] Comment on above: Order Comment: Speci men Type: URINE SPECIMENOrdering Facility: [facility] Address: [address] [place] [address] Result Comment: Cuto ff threshold at 300 ng/mL. Performed By: #### U TOX2 ####[facility] LABORATORYCLIA [id number] [address] oxyCODONE cutoff Screen (U) [Mass/Vol] Negative Normal Negative [facility] Comment on above: Order Comment: Speci men Type: URINE SPECIMENOrdering Facility: [facility] Address: [address] [place] [address] Result Comment: Cuto ff threshold at 100 ng/mL. Performed By: #### U TOX2 ####[facility] LABORATORYCLIA [id number] [address] [place] Phencyclidine Ql (U) Negative Normal Negative [facility] Comment on above: Order Comment: Speci men Type: URINE SPECIMENOrdering Facility: [facility] Address: [address] [place] [address] Result Comment: Cuto ff threshold at 25 ng/mL. Performed By: #### U TOX2 ####[facility] LABORATORYCLIA [id number] [address] OF [place]ED ALLIED HEALTHon 12-03-2024 ALLIED HEALTH HNO ID: [id number] Author: LILIAN SHAW CT Service: Radiology Author [...] PATIENT PRESENTS WITH AN IMPLANTABLE OR ATTACHED PILL PACKER: No RADIOLOGY DEPARTMENT: MR; Exam(s) Completed: Head: Routine Brain. Lavender Administered: No PERIPHERAL IV DATA: Not applicable SIGNED BY: RICHARD Viramontes December 03, 2024 6:00 PM [facility] HNO ID: [id number] Author: GISSEL OWODS TECHNOLOGIST Service: Radiology Author Type: Technologist Type: [facility] Filed: 12/03/2024 08:24 Note Text: [...] PATIENT PRESENTS WITH AN IMPLANTABLE OR ATTACHED PILL PACKER: No RADIOLOGY DEPARTMENT: CT; Exam(s) Completed: Brain PERIPHERAL IV DATA: Not applicable Removed pt wedding ring per 's request. Ring given to in ER room 10 SIGNED BY: TECHNOLOGIST Roland December 03, 2024 8:23 AM [facility] HNO ID: [id number] Author: DENNIS WHITTEN Tech Service: Radiology Author Type: Can Feeder Type: [facility] Filed: 12/03/2024 08:19 Note [...] PATIENT PRESENTS WITH AN IMPLANTABLE OR ATTACHED PILL PACKER: No RADIOLOGY DEPARTMENT: General X-ray: Exam(s) Completed: Chest X-Ray PERIPHERAL IV DATA: Not applicable SIGNED BY: Lobo Knight December 03, 2024 8:18 AM [facility] CBC W Auto Differential pane l (Bld)on 12-03-2024 Basophils (Bld) [#/Vol] 0.04 10*3/uL Normal <0.11 [facility] Comment on above: Order Comment: Speci men Type: BLOOD SPECIMENOrdering Facility: [facility] Address: [address] [place] [address] Performed By: #### 5 7021-8 ####[facility] LABORATORYCLIA [id number] [place] [address] [place] Basophils/100 WBC (Bld) 0.4 % Normal [facility] Comment on above: Order Comment: Speci men Type: BLOOD SPECIMENOrdering Facility: [facility] Address: [address] [place] [address] Performed By: #### 5 7021-8 ####[facility] LABORATORYCLIA [id number] [place] [address] [place] Differential cell count method Nom (Bld) Auto [facility] Comment on above: Order Comment: Speci men Type: BLOOD SPECIMENOrdering Facility: [facility] Address: [address] [place] [address] Performed By: #### 5 7021-8 ####[facility] LABORATORYCLIA [id number] [address] [place] Eosinophils (Bld) [#/Vol] 0.08 10*3/uL Normal <0.46 [facility] Comment on above: Order Comment: Speci men Type: BLOOD SPECIMENOrdering Facility: [facility] Address: [address] [place] [address] Performed By: #### 5 7021-8 ####[facility] LABORATORYCLIA [id number] [address] [place] Eosinophils/100 WBC (Bld) 0.7 % Normal [facility] Comment on above: Order Comment: Speci men Type: BLOOD SPECIMENOrdering Facility: [facility] Address: [address] [place] [address] Performed By: #### 5 7021-8 ####[facility] LABORATORYCLIA [id number] [address] Erythrocyte distribution width (RBC) [Ratio] 14.0 % Normal 11.5-15.0 [facility] Comment on above: Order Comment: Speci men Type: BLOOD SPECIMENOrdering Facility: [facility] Address: [address] [place] [address] Performed By: #### 5 7021-8 ####[facility] LABORATORYCLIA [id number] [address] Hematocrit (Bld) [Volume fraction] 44.6 % Normal 36.0-46.0 [facility] Comment on above: Order Comment: Speci men Type: BLOOD SPECIMENOrdering Facility: [facility] Address: [address] [place] [address] Performed By: #### 5 7021-8 ####[facility] LABORATORYCLIA [id number] [address] Hemoglobin (Bld) [Mass/Vol] 14.6 g/dL Normal 11.5-15.5 [facility] Comment on above: Order Comment: Speci men Type: BLOOD SPECIMENOrdering Facility: [facility] Address: [address] [place] [address] Performed By: #### 5 7021-8 ####[facility] LABORATORYCLIA [id number] [address] C[place] Immature granulocytes (Bld) [#/Vol] 10*3/uL Normal <0.10 [facility] Comment on above: Order Comment: Speci men Type: BLOOD SPECIMENOrdering Facility: [facility] Address: [address] [place] [address] Performed By: #### 5 7021-8 ####[facility] LABORATORYCLIA [id number] [address] Immature granulocytes/100 WBC (Bld) 0.2 % Normal [facility] Comment on above: Order Comment: Speci men Type: BLOOD SPECIMENOrdering Facility: [facility] Address: [address] [place] [address] Performed By: #### 5 7021-8 ####[facility] LABORATORYCLIA [id number] [address] STATES [facility] Lymphocytes (Bld) [#/Vol] 0.83 10*3/uL Low 1.00-4.00 [facility] Comment on above: Order Comment: Speci men Type: BLOOD SPECIMENOrdering Facility: [facility] Address: [address] [place] [address] Performed By: #### 5 7021-8 ####[facility] LABORATORYCLIA [id number] [address] Lymphocytes/100 WBC (Bld) 7.5 % Normal [facility] Comment on above: Order Comment: Speci men Type: BLOOD SPECIMENOrdering Facility: [facility] Address: [address] [place] [address] Performed By: #### 5 7021-8 ####[facility] LABORATORYCLIA [id number] [address] OF [place] MCH (RBC) [Entitic mass] 30.9 pg Normal 26.0-34.0 [facility] Comment on above: Order Comment: Speci men Type: BLOOD SPECIMENOrdering Facility: [facility] Address: [address] [place] [address] Performed By: #### 5 7021-8 ####[facility] LABORATORYCLIA [id number] [place] [address] [place] MCHC (RBC) [Mass/Vol] 32.7 g/dL Normal 30.5-36.0 [facility] Comment on above: Order Comment: Speci men Type: BLOOD SPECIMENOrdering Facility: [facility] Address: [address] [place] [address] Performed By: #### 5 7021-8 ####[facility] LABORATORYCLIA [id number] [place] [address] [place] MCV (RBC) [Entitic vol] 94.5 fL Normal 80.0-100.0 [facility] Comment on above: Order Comment: Speci men Type: BLOOD SPECIMENOrdering Facility: [facility] Address: [address] [place] [address] Performed By: #### 5 7021-8 ####[facility] LABORATORYCLIA [id number] [place] [address] [place] Monocytes (Bld) [#/Vol] 0.67 10*3/uL Normal <0.87 [facility] Comment on above: Order Comment: Speci men Type: BLOOD SPECIMENOrdering Facility: [facility] Address: [address] [place] [address] Performed By: #### 5 7021-8 ####[facility] LABORATORYCLIA [id number] [place] [address] [place] Monocytes/100 WBC (Bld) 6.1 % Normal [facility] Comment on above: Order Comment: Speci men Type: BLOOD SPECIMENOrdering Facility: [facility] Address: [address] [place] [address] Performed By: #### 5 7021-8 ####[facility] LABORATORYCLIA [id number] [place] [address] [place] Neutrophils (Bld) [#/Vol] 9.37 10*3/uL High 1.45-7.50 [facility] Comment on above: Order Comment: Speci men Type: BLOOD SPECIMENOrdering Facility: [facility] Address: [address] [place] [address] Performed By: #### 5 7021-8 ####[facility] LABORATORYCLIA [id number] [place] [address] [place] Neutrophils/100 WBC (Bld) 85.1 % Normal [facility] Comment on above: Order Comment: Speci men Type: BLOOD SPECIMENOrdering Facility: [facility] Address: [address] [place] [address] Performed By: #### 5 7021-8 ####[facility] LABORATORYCLIA [id number] [place] [address] [place] Nucleated RBC (Bld) [#/Vol] 10*3/uL Normal <0.01 [facility] Comment on above: Order Comment: Speci men Type: BLOOD SPECIMENOrdering Facility: [facility] Address: [address] [place] [address] Performed By: #### 5 7021-8 ####CON[facility] LABORATORYCLIA [id number] [place] [address] [place] Nucleated RBC/100 WBC (Bld) [Ratio] 0.0 /100 WBC Normal [facility] Comment on above: Order Comment: Speci men Type: BLOOD SPECIMENOrdering Facility: [facility] Address: [address] [place] [address] Performed By: #### 5 7021-8 ####CON[facility] LABORATORYCLIA [id number] [place] [address] [place] Platelet mean volume (Bld) [Entitic vol] 9.8 fL Normal 9.0-12.7 [facility] Comment on above: Order Comment: Speci men Type: BLOOD SPECIMENOrdering Facility: [facility] Address: [address] [place] [address] Performed By: #### 5 7021-8 ####CON[facility] LABORATORYCLIA [id number] [place] [address] [place] Platelets (Bld) [#/Vol] 201 10*3/uL Normal 150-400 [facility] Comment on above: Order Comment: Speci men Type: BLOOD SPECIMENOrdering Facility: [facility] Address: [address] [place] [id number] Performed By: #### 5 7021-8 ####CON[facility] LABORATORYCLIA [id number] [address] RBC (Bld) [#/Vol] 4.72 10*6/uL Normal 3.90-5.20 [facility] Comment on above: Order Comment: Speci men Type: BLOOD SPECIMENOrdering Facility: [facility] Address: [address] [place] [address] Performed By: #### 5 7021-8 ####CONNER LABORATORYCLIA [id number] [place] [id number] [facility] WBC (Bld) [#/Vol] 11.01 10*3/uL High 3.70-11.00 [facility] Comment on above: Order Comment: Speci men Type: BLOOD SPECIMENOrdering Facility: [facility] Address: [address] [place] [address] Performed By: #### 5 7021-8 ####CONNER LABORATORYCLIA [id number] [address] BRAIN WO IVCONon 12-04-[address] BRAIN WO IVCON * * *Final Report* * * DATE OF EXAM: Dec 03 2024 8:29AM [facility] 0504 - CT BRAIN WO IVCON / [...] volume loss or normal pressure/communicatin g hydrocephalus. [employer] Machine Repairer: [facility] LEXINGTONKojo Transcribe Date/Time: Dec 03 2024 8:45A Dictated by : LINDSEY GARCES MD This examination was interpreted and the report reviewed and electronically signed by: LINDSEY GARCES MD on Dec 03 2024 8:59AM EST [id number] N Normal [facility] Comprehensive metabolic 2000 panelon 12-03-2024 Albumin [Mass/Vol] 4.5 g/dL Normal 3.9-4.9 [facility] Comment on above: Order Comment: Speci men Type: BLOOD SPECIMENOrdering Facility: [facility] Address: [address] [place] [address] [place], [place] [address] Performed By: #### 2 4323-8, 3016-3, LIPNF ####CONNER LABORATORYCLIA [id number] [place] [address] [place] ALP [Catalytic activity/Vol] 106 U/L Normal 34-123 [facility] Comment on above: Order Comment: Speci men Type: BLOOD SPECIMENOrdering Facility: [facility] Address: [address] [place] [address] Performed By: #### 2 4323-8, 3016-3, LIPNF ####CONNER LABORATORYCLIA [id number] [place] [address] [place] ALT [Catalytic activity/Vol] 7 U/L Normal 7-38 [facility] Comment on above: Order Comment: Speci men Type: BLOOD SPECIMENOrdering Facility: [facility] Address: [address] [place] [address] Performed By: #### 2 4323-8, 3016-3, LIPNF ####CONNER LABORATORYCLIA [id number] [address] STATES [facility] Anion gap [Moles/Vol] 11 mmol/L Normal 8-15 [facility] Comment on above: Order Comment: Speci men Type: BLOOD SPECIMENOrdering Facility: [facility] Address: [address] [place] [address] Performed By: #### 2 4323-8, 3016-3, LIPNF ####CONNER LABORATORYCLIA [id number] [address] AST [Catalytic activity/Vol] 16 U/L Normal 13-35 [facility] Comment on above: Order Comment: Speci men Type: BLOOD SPECIMENOrdering Facility: [facility] Address: [address] [place] [address] Performed By: #### 2 4323-8, 3016-3, LIPNF ####CONNER LABORATORYCLIA [id number] [address] [place] Bilirubin [Mass/Vol] 0.8 mg/dL Normal 0.2-1.3 [facility] Comment on above: Order Comment: Speci men Type: BLOOD SPECIMENOrdering Facility: [facility] Address: [address] [place] [address] Performed By: #### 2 4323-8, 3016-3, LIPNF ####CONNER LABORATORYCLIA [id number] [place] [address] [place] Calcium [Mass/Vol] 9.3 mg/dL Normal 8.5-10.2 [facility] Comment on above: Order Comment: Speci men Type: BLOOD SPECIMENOrdering Facility: [facility] Address: [address] [place] [address] Performed By: #### 2 4323-8, 6-3, LIPNF ####CONNER LABORATORYCLIA [id number] [place] [address] [place] Chloride [Moles/Vol] 101 mmol/L Normal 98-107 [facility] Comment on above: Order Comment: Speci men Type: BLOOD SPECIMENOrdering Facility: [facility] Address: [address] [place] [address] Performed By: #### 2 4323-8, 3015-3, LIPNF ####CONNER LABORATORYCLIA [id number] [place] [address] [place] CO2 [Moles/Vol] 28 mmol/L Normal 22-30 [facility] Comment on above: Order Comment: Speci men Type: BLOOD SPECIMENOrdering Facility: [facility] Address: [address] [place] [address] Performed By: #### 2 4323-8, 3015-3, LIPNF ####CONNER LABORATORYCLIA [id number] [place] [id number] [place] Creatinine [Mass/Vol] 0.72 mg/dL Normal 0.58-0.96 [facility] Comment on above: Order Comment: Speci men Type: BLOOD SPECIMENOrdering Facility: [facility] Address: [address] [place] [address] Performed By: #### 2 4323-8, 6-3, LIPNF ####CONNER LABORATORYCLIA [id number] [place] [address] [place] Creatinine and Glomerular filtration rate.predicted panel (S/P/Bld) 86 mL/min/1.73m??? Normal >=60 [facility] Comment on above: Order Comment: Yoav lujan Type: BLOOD SPECIMENOrdering Facility: [facility] Address: [address] [place] [address] Result Comment: Mateo mated Glomerular Filtration Rate [...] GFR. Performed By: #### 2 4323-8, 3016-3, OMER ####CONNER LABORATORYCLIA [id number] [place] [address] [place] Glucose [Mass/Vol] 127 mg/dL High 74-99 [facility] Comment on above: Order Comment: Yoav lujan Type: BLOOD SPECIMENOrdering Facility: [facility] Address: [address] [place] [address] Result Comment: The [place] Diabetes Association (ADA) provides guidance for cutoff [...] Standards of Medical Care in Diabetes 2016, [place] Diabetes Association. Diabetes Care. 2016.39(Suppl 1). Performed By: #### 2 4323-8, 3016-3, OMER ####[facility] LABORATORYCLIA [id number] [place] [id number] [place] Potassium [Moles/Vol] 4.2 mmol/L Normal 3.7-5.1 [facility] Comment on above: Order Comment: Yoav lujan Type: BLOOD SPECIMENOrdering Facility: [facility] Address: [address] [place], [place] [address] Performed By: #### 2 4323-8, 3016-3, LIPNF ####CONNER LABORATORYCLIA [id number] [place] [address] [place] Protein [Mass/Vol] 7.6 g/dL Normal 6.3-8.0 [facility] Comment on above: Order Comment: Speci men Type: BLOOD SPECIMENOrdering Facility: [facility] Address: [address] [place] [address] Performed By: #### 2 4323-8, 3016-3, LIPNF ####CON[facility] LABORATORYCLIA [id number] [place] [id number] [place] Sodium [Moles/Vol] 140 mmol/L Normal 136-144 [facility] Comment on above: Order Comment: Speci men Type: BLOOD SPECIMENOrdering Facility: [facility] Address: [address] [place] [address] Performed By: #### 2 4323-8, 3016-3, LIPNF ####CON[facility] LABORATORYCLIA [id number] [place] [id number] [place] Urea nitrogen [Mass/Vol] 15 mg/dL Normal 7-21 [facility] Comment on above: Order Comment: Speci men Type: BLOOD SPECIMENOrdering Facility: [facility] Address: [address] [place] [address] Performed By: #### 2 4323-8, 3016-3, LIPNF ####CON[facility] LABORATORYCLIA [id number] [place] [id number] [place] ED NOTEon 12-03-2024 ED NOTE HNO ID: [id number] Author: LORRIE HURD RN Service: Nursing Author Type: Registered Nurse Type: ED Notes Filed: 12/03/2024 11:42 Note Text: Second heads up given to 3 south rn discharge [facility] ED NOTE HNO ID: [id number] Author: LORRIE HURD RN Service: Nursing Author Type: Registered Nurse Type: ED Notes Filed: 12/03/2024 10:56 Note Text: Heads up given to 3 south rn discharge [facility] ED NOTE HNO ID: [id number] Author: LORRIE HURD RN Service: Nursing Author Type: Registered Nurse Type: ED Notes Filed: 12/03/2024 10:52 Note Text: Pt awake, talking and provided with snacks. [facility] ED NOTE HNO ID: [id number] Author: LORRIE HURD RN Service: Nursing Author Type: Registered Nurse Type: ED Notes Filed: 12/03/2024 17:26 Note Text: Pt's requested we remove pt's wedding ring. Ring removed and given to at bedside. [facility] ED PROV NOTEon 12-03-2024 ED PROV NOTE HNO ID: [id number] Author: LUANA MENDOZA DO Service: Emergency Medicine [...] not communicati (more content not included)... Normal [facility] EKGon 12-03-2024 Electrocardiogram Ventricular Rate : 9 2 BPM Atrial Rate : 92 BPM P-R Interval : 148 ms QRS Duration : 76 ms Q-T Interval : 364 ms QTC Calculation(Bazett) : 450 ms Calculated P Orlando : 5 degrees Calculated R Orlando : -7 degrees Calculated T Orlando : 23 degrees NORMAL SINUS RHYTHM CANNOT RULE OUT ANTERIOR INFARCT , AGE UNDETERMINED ABNORMAL ECG Confirmed by LUANA MENDOZA DO ([id number]) on 12/03/2024 2:32:05 PM NAME : MADIHA PERALES PID : [id number] : 1945 Gender : Female Race : ORD : Procedure Date : Dec 03 2024 07:59:58 Edit Date : Dec 03 2024 14:32:08 Diagnosis: NORMAL SINUS RHYTHM CANNOT RULE OUT ANTERIOR INFARCT , AGE UNDETERMINED ABNORMAL ECG Confirmed by LUANA MENDOZA DO ([id number]) on 12/03/2024 2:32:05 PM Test Reason : Location : 1 : ER ED Overread By : LUANA MENDOZA DO Edited By : LUANA MENDOZA DO Referred By : , Acquired by : [id number], Normal [facility] HISTORY PHYSICALon HISTORY PHYSICAL HNO ID: [id number] Author: ANAHI POLANCO MD Service: Hospital Medicine Author Type: Physician Type: H&P Filed: 12/03/2024 16:43 Note Text: DEPARTMENT OF HOSPITAL MEDICINE HISTORY AND PHYSICAL EXAM SERVICE DATE: 12/03/2024 SERVICE TIME: 3:58 PM Primary Care Physician: Marie Devi MD NIGHT AND WEEKEND COVERAGE: [facility] [employer]: Days: [phone], please page attending physician. Nights: [phone], please page [facility] Night coverage pager [phone]. 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 Patient is a poor historian and [...] temperature was 98.7F, [place] of 88/[place], [place] [address], RR of 22/min, 99% on room air. [...] GENERAL: No (more content not included)... Normal [facility] LIPID PANEL, NONFASTINGon Cholesterol [Mass/Vol] 152 mg/dL Normal <200 [facility] Comment on above: Order Comment: Speci men Type: BLOOD SPECIMENOrdering Facility: [facility] Address: [address] [place] [address] Result Comment: <200 mg/dL, Desirable 200-239 mg/dL, Borderline high >239 mg/dL, High Performed By: #### 2 4323-8, 3016-3, LIPNF ####[facility] LABORATORYCLIA [id number] [address] OF [facility] HDL CHOLESTEROL, NF 54 mg/dL Normal >39 [facility] Comment on above: Order Comment: Speci men Type: BLOOD SPECIMENOrdering Facility: [facility] Address: [address] [place] [address] Result Comment: 40-5 9 mg/dL, Acceptable >59 mg/dL, High: Negative risk factor for coronary heart disease <40 mg/dL, Low: Positive risk factor for coronary heart disease Performed By: #### 2 4323-8, 3016-3, LIPNF ####[facility] LABORATORYCLIA [id number] [address] STATES [place] LDL CHOLESTEROL CALCULATED, NF 84 mg/dL Normal <100 [facility] Comment on above: Order Comment: Yoav [facility] Type: BLOOD SPECIMENOrdering Facility: [facility] Address: [address] [place] [address] Result Comment: <100 mg/dL, Optimal 100-129 mg/dL, Near optimal/above optimal 130-159 mg/dL, Borderline high 160-189 mg/dL, High >189 mg/dL, Very high Secondary prevention optimal LDL Cholesterol levels are recommended to be <70 mg/dL LDL cholesterol is calculated using the Lock-NIH equation. Performed By: #### 2 4323-8, 3016-3, LIPNF ####CON[facility] LABORATORYCLIA [id number] [address] OF [facility] LDL/HDL RATIO, NF 1.56 mg/dL Normal <2.54 [facility] Comment on above: Order Comment: Yoav tai Type: BLOOD SPECIMENOrdering Facility: [facility] Address: [address] [place] [address] Result Comment: Tara sanches: 1. National Cholesterol Education Program ATP III Guideline At-A-Glance Quick Desk Reference: National Heart, Lung, and Blood Moran. National Institutes of Health. 2001: NIH Publication No. 01-3305. 2. An International Atherosclerosis Society position paper: global recommendations for the management of dyslipidemia: executive summary, Atherosclerosis. 2014: 232(2):410-413. Performed By: #### 2 4323-8, 3016-3, LIPNF ####CON[facility] LABORATORYCLIA [id number] [address] STATES OF C[place] NON HDL CHOL, NF 98 mg/dL Normal <130 [facility] Comment on above: Order Comment: Yoav tai Type: BLOOD SPECIMENOrdering Facility: [facility] Address: [address] [place] [address] Result Comment: <130 mg/dL, Optimal 130-159 mg/dL, Near optimal/above optimal 160-189 mg/dL, Borderline high 190-219 mg/dL, High >219 mg/dL, Very high Secondary prevention optimal non HDL Cholesterol levels are recommended to be <100 mg/dL Performed By: #### 2 4323-8, 3016-3, LIPNF ####CON[facility] LABORATORYCLIA [id number] [address] T CHOL/HDL RATIO NF 2.81 mg/dL Normal <5.10 [facility] Comment on above: Order Comment: Speci men Type: BLOOD SPECIMENOrdering Facility: [facility] Address: [address] [place] [address] Performed By: #### 2 4323-8, 3016-3, LIPNF ####[facility] LABORATORYCLIA [id number] [address] TRIGLYCERIDES, NF 70 mg/dL Normal <150 [facility] Comment on above: Order Comment: Speci men Type: BLOOD SPECIMENOrdering Facility: [facility] Address: [address] [place] [address] Result Comment: <150 mg/dL, Normal 150-199 mg/dL, Borderline high 200-499 mg/dL, High >499 mg/dL, Very high Performed By: #### 2 4323-8, 3016-3, LIPNF ####[facility] LABORATORYCLIA [id number] [address] VLDL CHOLESTEROL, NF 11 mg/dL Normal <30 [facility] Comment on above: Order Comment: Nehemiahi men Type: BLOOD SPECIMENOrdering Facility: [facility] Address: [address] [place] [address] Performed By: #### 2 4323-8, 3016-3, LIPNF ####[facility] LABORATORYCLIA [id number] [address] MRI BRAIN WO IVCONon 12-03- 025 MRI BRAIN WO IVCON * * *Final Report* * * DATE OF EXAM: Dec 03 2024 6:17PM [facility] 0294 - MRI BRAIN WO IVCON / PROCEDURE REASON: Delirium * * * * Physician Interpretation * * * * EXAMINATION: MRI BRAIN WO IVCON HISTORY: Delirium - - - Altered state of awareness - Delirium - [id number] - - - - TECHNIQUE: MRI brain [...] acute infarct. Extensive chronic changes as detailed. [employer] Machine Repairer: JARVIS Transcribe Date/Time: Dec 03 2024 8:33P Dictated by : SAGE ÁLVAREZ MD This examination was interpreted and the report reviewed and electronically signed by: SAGE ÁLVAREZ MD on Dec 03 2024 8:43PM EST [id number] N Normal [facility] SEPSIS LACTATE W/ REFLEX (IN ITIAL)on 12-03-2024 Lactate [Moles/Vol] 1.4 mmol/L Normal 0.5-2.0 [facility] Comment on above: Order Comment: Speci men Type: BLOOD SPECIMENOrdering Facility: [facility] Address: [address] [place] [address] Performed By: #### S LACTR ####[facility] LABORATORYCLIA [id number] [place] [address] [facility] OF CED THERAPY NTon 12-03-2024 THERAPY NT HNO ID: [id number] Author: ORQUIDEA VELÁZQUEZ OT/West Service: Occupational Therapy Author Type: Occupational Therapist Type: Therapy (PT/OT/Speech/Resp) Filed: 12/03/2024 14:34 Note Text: Summary: OT Missed Visit OCCUPATIONAL THERAPY MISSED VISIT SERVICE DATE: 12/03/2024 SERVICE TIME: 1430 ROOM: [place] [address] Patient not seen due to Incomplete Orders. Awaiting ED note and/or HANDP in order to complete chart review of patient and determine clinical appropriateness for participation in therapy evaluation at this time. Will re-attempt as schedule allows pending pt appropriateness. SIGNATURE: Orquidea Velázquez OT/L PATIENT NAME: Madiha Perales DATE: December 03, 2024 TIME: 2:31 PM Normal [facility] TSH SerPl-aCncon 12-03-2024 TSH Qn 1.260 m[IU]/L Normal 0.270-4.200 [facility] Comment on above: Order Comment: Yoav lujan Type: BLOOD SPECIMENOrdering Facility: [facility] Address: [address] [place] [address] Performed By: #### 2 4323-8, 3016-3, LIPNF ####[facility] LABORATORYCLIA [id number] [place] [address] [place] Urinalysis complete panel (U )on 12-03-2024 Bacteria LM.HPF (Urine sed) [#/Area] Few Abnormal None Seen [facility] Comment on above: Order Comment: Yoav luajn Type: URINE SPECIMENOrdering Facility: [facility] Address: [address] [place] [address] Performed By: #### 2 4356-8 ####[facility] LABORATORYCLIA [id number] [place] [address] [place] Bilirubin Ql (U) Negative Normal Negative [facility] Comment on above: Order Comment: Speci men Type: URINE SPECIMENOrdering Facility: [facility] Address: [address] [place] [address] Performed By: #### 2 4356-8 ####[facility] LABORATORYCLIA [id number] [place] [address] [place] Clarity (Unsp spec) Clear Normal Clear [facility] Comment on above: Order Comment: Speci men Type: URINE SPECIMENOrdering Facility: [facility] Address: [address] [place] [address] Performed By: #### 2 4356-8 ####[facility] LABORATORYCLIA [id number] [address] OF CED Color (U) Yellow Normal Yellow [facility] Comment on above: Order Comment: Speci men Type: URINE SPECIMENOrdering Facility: [facility] Address: [address] [place] [address] Performed By: #### 2 4356-8 ####[facility] LABORATORYCLIA [id number] [place] [address] [place] Epithelial cells LM.HPF (Urine sed) [#/Area] Few Normal [facility] Comment on above: Order Comment: Speci men Type: URINE SPECIMENOrdering Facility: [facility] Address: [address] [place] [address] Performed By: #### 2 4356-8 ####[facility] LABORATORYCLIA [id number] [place] [id number] [place] Glucose Test strip (U) [Mass/Vol] Negative Normal Negative [facility] Comment on above: Order Comment: Speci men Type: URINE SPECIMENOrdering Facility: [facility] Address: [address] [place] [address] Performed By: #### 2 4356-8 ####[facility] LABORATORYCLIA [id number] [place] [address] [place] Hemoglobin Ql (U) Trace Abnormal Negative [facility] Comment on above: Order Comment: Speci men Type: URINE SPECIMENOrdering Facility: [facility] Address: [address] [place] [address] Performed By: #### 2 4356-8 ####[facility] LABORATORYCLIA [id number] [place] [address] [place] Ketones Ql (U) Negative Normal Negative [facility] Comment on above: Order Comment: Speci men Type: URINE SPECIMENOrdering Facility: [facility] Address: [address] [place] [address] Performed By: #### 2 4356-8 ####[facility] LABORATORYCLIA [id number] [place] [address] [place] Leukocyte esterase Test strip Ql (U) Trace Abnormal Negative [facility] Comment on above: Order Comment: Speci men Type: URINE SPECIMENOrdering Facility: [facility] Address: [address] [place] [address] Performed By: #### 2 4356-8 ####[facility] LABORATORYCLIA [id number] [place] [address] [place] Nitrite Ql (U) Negative Normal Negative [facility] Comment on above: Order Comment: Speci men Type: URINE SPECIMENOrdering Facility: [facility] Address: [address] [place] [address] Performed By: #### 2 4356-8 ####[facility] LABORATORYCLIA [id number] [place] [address] [place] pH (U) 7.0 [pH] Normal 5.0-8.0 [facility] Comment on above: Order Comment: Speci men Type: URINE SPECIMENOrdering Facility: [facility] Address: [address] [place] [address] Performed By: #### 2 4356-8 ####[facility] LABORATORYCLIA [id number] [place] [address] [place] Protein (U) [Mass/Vol] Negative Normal Negative [facility] Comment on above: Order Comment: Speci men Type: URINE SPECIMENOrdering Facility: [facility] Address: [address] [place] [address] Performed By: #### 2 4356-8 ####[facility] LABORATORYCLIA [id number] [address] STATES CED RBC LM.HPF (Urine sed) [#/Area] 0-3 /HPF Normal 0-3 /HPF [facility] Comment on above: Order Comment: Speci men Type: URINE SPECIMENOrdering Facility: [facility] Address: [address] [place] [address] Performed By: #### 2 4356-8 ####[facility] LABORATORYCLIA [id number] [address] CED Specific gravity (U) [Rel density] 1.015 Normal 1.005-1.030 [facility] Comment on above: Order Comment: Speci men Type: URINE SPECIMENOrdering Facility: [facility] Address: [address] [place] [address] Performed By: #### 2 4356-8 ####[facility] LABORATORYCLIA [id number] [address] Urobilinogen Ql (U) 0.2 EU/dL Normal 0.2-1.0 EU/dL [facility] Comment on above: Order Comment: Speci men Type: URINE SPECIMENOrdering Facility: [facility] Address: [address] [place] [address] Performed By: #### 2 4356-8 ####[facility] LABORATORYCLIA [id number] [address] WBC LM.HPF (Urine sed) [#/Area] 0-5 /HPF Normal 0-5 /HPF [facility] Comment on above: Order Comment: Speci men Type: URINE SPECIMENOrdering Facility: [facility] Address: [address] [place] [address] Performed By: #### 2 4356-8 ####[facility] LABORATORYCLIA [id number] [address] OF CED XR CHEST 1V FRONTAL PORTon [...] silhouette. Other: . IMPRESSION: No acute process. [employer] Machine Repairer: PSCB Transcribe Date/Time: Dec 03 2024 8:33A Dictated by : BOOKER PEDRAZA MD This examination was interpreted and the report reviewed and electronically signed by: BOOKER PEDRAZA MD on Dec 03 2024 8:34AM EST [id number] N Normal [facility] 25-hydroxyvitamin D3 [Mass/V ol]on 09-18-2024 25-hydroxyvitamin D [Mass/Vol] 51 ng/mL 30 - 100 ng/mL [facility] Comment on above: Vitamin D Status 25- OH Vitamin D: Deficiency: <20 ng/mL Insufficiency: 20 - 29 ng/mL Optimal: > or = 30 ng/mL For 25-OH Vitamin D testing on patients on D2-supplementation and patients for whom quantitation of D2 and D3 fractions is required, the QuestAssureD(TM) 25-OH VIT D, (D2,D3), LC/MS/MS is recommended: order code 59171 (patients >2yrs). See Note 1 Note 1 For additional information, please refer to http://education.Cactus/faq/MBG449 (This link is being provided for informational/ educational purposes only.) CBC (INCLUDES DIFF/PLT)on Basophils (Bld) [#/Vol] 0.027 10*3/uL Normal 0-200 [facility] Comment on above: Performed By: #### 3 3390, 09793, 9299, 15436, 08042 #### [facility] [address], [address] [place] [address] Medical Record Clerk: Jame Mena MD Basophils/100 WBC (Bld) 0.4 % Normal [facility] Comment on above: Performed By: #### 3 6127, 16401, 6399, 37474, 40842 #### [facility] of [place] [address] Medical Record Clerk: Jame Mena MD Eosinophils (Bld) [#/Vol] 0.168 10*3/uL Normal 15-500 [facility] Comment on above: Performed By: #### 3 6127, 59001, 6399, 63790, 93498 #### [facility] of [place] [address] Medical Record Clerk: Jame Mena MD Eosinophils/100 WBC (Bld) 2.5 % Normal [facility] Comment on above: Performed By: #### 3 6127, 87044, 6399, 09315, 29613 #### [facility] [place] [address] Medical Record Clerk: Jame Mena MD Erythrocyte distribution width (RBC) [Ratio] 12.6 % Normal 11.0-15.0 [facility] Comment on above: Performed By: #### 3 6127, 98174, 6399, 93177, 35219 #### [facility] [place] [address] Medical Record Clerk: Jame Mena MD Hematocrit (Bld) [Volume fraction] 43.6 % Normal 35.0-45.0 [facility] Comment on above: Performed By: #### 3 6127, 17868, 6399, 76798, 60842 #### [facility] [place] [address] Medical Record Clerk: Jame Mena MD Hemoglobin (Bld) [Mass/Vol] 14.6 g/dL Normal 11.7-15.5 [facility] Comment on above: Performed By: #### 3 6127, 46453, 6399, 49629, 48076 #### [facility] of [place] [id number] Medical Record Clerk: Jame Mena MD Lymphocytes (Bld) [#/Vol] 1.206 10*3/uL Normal 850-3900 [facility] Comment on above: Performed By: #### 3 6127, 83056, 6399, 35524, 12077 #### [facility] of [address], [address] [place] [address] Medical Record Clerk: Jame Mena MD Lymphocytes/100 WBC (Bld) 18.0 % Normal [facility] Comment on above: Performed By: #### 3 6127, 92708, 6399, 08973, 55989 #### [facility] [place] [address] Medical Record Clerk: Jame Mena MD MCH (RBC) [Entitic mass] 31.6 pg Normal 27.0-33.0 [facility] Comment on above: Performed By: #### 3 6127, 23017, 6399, 17737, 55167 #### [facility] of [address], [address] [place] [address] Medical Record Clerk: Jame Mena MD MCHC (RBC) [Mass/Vol] 33.5 [...] clinical condition. Performed By: #### 3 6127, 55587, 6399, 97874, 93640 #### [facility] of [address], [address] [place] [address] Medical Record Clerk: Jame Mena MD MCV (RBC) [Entitic vol] 94.4 fL Normal 80.0-100.0 [facility] Comment on above: Performed By: #### 3 6127, 90638, 6399, 56438, 63289 #### [facility] [address], [address] [place], [place] [address] Medical Record Clerk: Jame Mena MD Monocytes (Bld) [#/Vol] 0.469 10*3/uL Normal 200-950 [facility] Comment on above: Performed By: #### 3 6127, 87723, 6399, 92577, 23995 #### [facility] of [address], [address] [place] [address] Medical Record Clerk: Jame Mena MD Monocytes/100 WBC (Bld) 7.0 % Normal [facility] Comment on above: Performed By: #### 3 6127, 56449, 6399, 22183, 14458 #### [facility] [place] [address] Medical Record Clerk: Jame Mena MD Neutrophils (Bld) [#/Vol] 4.831 10*3/uL Normal 2884-8900 [facility] Comment on above: Performed By: #### 3 6127, 04876, 6399, 90585, 02980 #### [facility] [place] [address] Medical Record Clerk: Jame Mena MD Neutrophils/100 WBC (Bld) 72.1 % Normal [facility] Comment on above: Performed By: #### 3 6127, 61453, 6399, 22810, 87137 #### [facility] [place] [address] Medical Record Clerk: Jame Mena MD Platelet mean volume (Bld) [Entitic vol] 11.2 fL Normal 7.5-12.5 [facility] Comment on above: Performed By: #### 3 6127, 08665, 6399, 10953, 53324 #### [facility] [place] [address] Medical Record Clerk: Jame Mena MD Platelets (Bld) [#/Vol] 206 10*3/uL Normal 140-400 [facility] Comment on above: Performed By: #### 3 6127, 84992, 6399, 81208, 10973 #### [facility] of [facility] [address], [address] Medical Record Clerk: Jame Mena MD RBC (Bld) [#/Vol] 4.62 10*6/uL Normal 3.80-5.10 [facility] Comment on above: Performed By: #### 3 6127, 88681, 6399, 63368, 56434 #### [facility] of [facility] [address], [address] [place] [address] Medical Record Clerk: Jame Mena MD WBC (Bld) [#/Vol] 6.7 10*3/uL Normal 3.8-10.8 [facility] Comment on above: Performed By: #### 3 6127, 12629, 6399, 18810, 58241 #### [facility] of [facility] [address], [address] [place] [address] Medical Record Clerk: Jame Mena MD CBC W Auto Differential pane l (Bld)on 09-18-2024 Basophils (Bld) [#/Vol] 27 10*3/uL U [facility] Basophils/100 WBC (Bld) 0.4 % U [facility] Eosinophils (Bld) [#/Vol] 168 10*3/uL [facility] Eosinophils/100 WBC (Bld) 2.5 % [facility] Erythrocyte distribution width (RBC) [Ratio] 12.6 % 11.0 - 15.0 % [facility] Hematocrit (Bld) [Volume fraction] 43.6 % 35.0 - 45.0 % [facility] Hemoglobin (Bld) [Mass/Vol] 14.6 g/dL 11.7 - 15.5 g/dL [facility] Lymphocytes (Bld) [#/Vol] 1206 10*3/uL [facility] Lymphocytes/100 WBC (Bld) 18 % [facility] MCH (RBC) [Entitic mass] 31.6 pg 27.0 - 33.0 pg [facility] MCHC (RBC) [Mass/Vol] 33.5 g/dL 32.0 - 36.0 g/dL [facility] Comment on above: For adults, a slight decrease in the calculated MCHC value (in the range of 30 to 32 g/dL) is most likely not clinically significant; however, it should be interpreted with caution in correlation with other red cell parameters and the patient's clinical condition. MCV (RBC) [Entitic vol] 94.4 fL 80.0 - 100.0 fL [facility] Monocytes (Bld) [#/Vol] 469 10*3/uL [facility] Monocytes/100 WBC (Bld) 7 % U [facility] Neutrophils (Bld) [#/Vol] 4831 10*3/uL [facility] Neutrophils/100 WBC (Bld) 72.1 % [facility] Platelet mean volume (Bld) [Entitic vol] 11.2 fL 7.5 - 12.5 fL [facility] Platelets (Bld) [#/Vol] 206 10*3/uL [facility] RBC (Bld) [#/Vol] 4.62 10*6/uL [facility] WBC (Bld) [#/Vol] 6.7 10*3/uL [facility] COMPREHENSIVE METABOLIC PANE L W/ANION GAPon 09-18-2024 Albumin [Mass/Vol] 4.4 g/dL Normal 3.6-5.1 [facility] Comment on above: Order Comment: FASTI NG:NO FASTING: NO Performed By: #### 3 6127, 25056, 6399, 70040, 04900 #### [facility] [address], [address] [place], [place] [address] Medical Record Clerk: Jame Mena MD ALP [Catalytic activity/Vol] 95 U/L Normal 37-153 [facility] Comment on above: Order Comment: FASTI NG:NO FASTING: NO Performed By: #### 3 6127, 99670, 6399, 89490, 08713 #### [facility] [address], [address] [place] [address] Medical Record Clerk: Jame Mena MD ALT [Catalytic activity/Vol] 17 U/L Normal 6-29 [facility] Comment on above: Order Comment: FASTI NG:NO FASTING: NO Performed By: #### 3 6127, 40795, 6399, 78722, 52906 #### [facility] [place] [address] Medical Record Clerk: Jame Mena MD AST [Catalytic activity/Vol] 15 U/L Normal 10-35 [facility] Comment on above: Order Comment: FASTI NG:NO FASTING: NO Performed By: #### 3 6127, 49761, 6399, 62391, 06407 #### [facility] [place] [address] Medical Record Clerk: Jame Mena MD Bilirubin [Mass/Vol] 0.6 mg/dL Normal 0.2-1.2 [facility] Comment on above: Order Comment: FASTI NG:NO FASTING: NO Performed By: #### 3 6127, 45132, 6399, 51174, 58563 #### [facility] [place] [address] Medical Record Clerk: Jame Mena MD Calcium [Mass/Vol] 9.7 mg/dL Normal 8.6-10.4 [facility] Comment on above: Order Comment: FASTI NG:NO FASTING: NO Performed By: #### 3 6127, 40101, 6399, 02863, 60869 #### [facility] [place] [address] Medical Record Clerk: Jame Mena MD Chloride [Moles/Vol] 102 mmol/L Normal 98-110 [facility] Comment on above: Order Comment: FASTI NG:NO FASTING: NO Performed By: #### 3 6127, 38191, 6399, 63736, 63199 #### [facility] [place] [address] Medical Record Clerk: Jame Mena MD CO2 [Moles/Vol] 32 mmol/L Normal 20-32 [facility] Comment on above: Order Comment: FASTI NG:NO FASTING: NO Performed By: #### 3 6127, 74908, 6399, 24469, 47195 #### [facility] [place] [address] Medical Record Clerk: Jame Mena MD Creatinine [Mass/Vol] 0.59 mg/dL Low 0.60-1.[address] [facility] Comment on above: Order Comment: FASTI NG:NO FASTING: NO Performed By: #### 3 6127, 09160, 6399, 28481, 87727 #### [facility] [place] [address] Medical Record Clerk: Jame Mena MD ELECTROLYTE BALANCE 8 mmol/L (calc) Normal 7-17 [facility] Comment on above: Order Comment: FASTI NG:NO FASTING: NO Performed By: #### 3 6127, 59877, 6399, 75625, 40156 #### [facility] [place] [address] Medical Record Clerk: Jame Mena MD GFR/1.73 sq M.predicted among non-blacks MDRD (S/P/Bld) [Vol rate/Area] 92 mL/min/{1.73_m2} Normal > OR = 60 [facility] Comment on above: Order Comment: FASTI NG:NO FASTING: NO Performed By: #### 3 6127, 86980, 6399, 79008, 69699 #### [facility] [place] [address] Medical Record Clerk: Jame Mena MD Glucose [Mass/Vol] 86 mg/dL Normal 65-139 [facility] Comment on above: Order Comment: FASTI NG:NO FASTING: NO Result Comment: Non-fasting reference interval Performed By: #### 3 6127, 95825, 6399, 12002, 87811 #### [facility] [place] [address] Medical Record Clerk: Jame Mena MD Potassium [Moles/Vol] 4.7 mmol/L Normal 3.5-5.3 [facility] Comment on above: Order Comment: FASTI NG:NO FASTING: NO Performed By: #### 3 6127, 72956, 6399, 54686, 91891 #### [facility] [address], [address] [place] [address] Medical Record Clerk: Jame Mena MD Protein [Mass/Vol] 6.9 g/dL Normal 6.1-8.1 [facility] Comment on above: Order Comment: FASTI NG:NO FASTING: NO Performed By: #### 3 6127, 40307, 6399, 28103, 18114 #### [facility] [address], [address] [place] [address] Medical Record Clerk: Jame Mena MD Sodium [Moles/Vol] 142 mmol/L Normal 135-146 [facility] Comment on above: Order Comment: FASTI NG:NO FASTING: NO Performed By: #### 3 6127, 01865, 6399, 74312, 50271 #### [facility] [address], [address] [place] [address] Medical Record Clerk: Jame Mena MD Urea nitrogen [Mass/Vol] 15 mg/dL Normal 7-25 [facility] Comment on above: Order Comment: FASTI NG:NO FASTING: NO Performed By: #### 3 6127, 74851, 6399, 53672, 37312 #### [facility] [address], [address] [place] [address] Medical Record Clerk: Jame Mena MD Comprehensive metabolic 2000 panelon 09-18-2024 Albumin [Mass/Vol] 4.4 g/dL 3.6 - 5.1 g/dL [facility] ALP [Catalytic activity/Vol] 95 U/L 37 - 153 U/L [facility] ALT [Catalytic activity/Vol] 17 U/L 6 - 29 U/L [facility] Anion gap [Moles/Vol] 8 mmol/L [facility] AST [Catalytic activity/Vol] 15 U/L 10 - 35 U/L [facility] Bilirubin [Mass/Vol] 0.6 mg/dL 0.2 - 1 .2 mg/dL [facility] Calcium [Mass/Vol] 9.7 mg/dL 8.6 - 10. 4 mg/dL [facility] Chloride [Moles/Vol] 102 mmol/L 98 - 11 0 mmol/L [facility] CO2 [Moles/Vol] 32 mmol/L 20 - 32 mmol/L [facility] Creatinine [Mass/Vol] 0.59 mg/dL Low 0.60 - 1.00 mg/dL [facility] GFR/1.73 sq M.predicted among non-blacks MDRD (S/P/Bld) [Vol rate/Area] 92 mL/min/{1.73_m2} > OR = 60 mL/min/1.73 m2 [facility] Glucose [Mass/Vol] 86 mg/dL 65 - 139 mg/dL [facility] Comment on above: Non-fasting reference interval Potassium [Moles/Vol] 4.7 mmol/L 3.5 - 5.3 mmol/L [facility] Protein [Mass/Vol] 6.9 g/dL 6.1 - 8.1 g/dL [facility] Sodium [Moles/Vol] 142 mmol/L 135 - 146 mmol/L [facility] Urea nitrogen [Mass/Vol] 15 mg/dL 7 - 25 mg/dL [facility] HEMOGLOBIN A1c WITH eAGon eAG (mmol/L) 6.5 mmol/L Normal [facility] Comment on above: Performed By: #### 3 6127, 90659, 6399, 15089, 28849 #### [facility] [address], [address] [place] [address] Medical Record Clerk: Jame Mena MD HEMOGLOBIN A1c 5.7 % [...] for children. Performed By: #### 3 6127, 52019, 6399, 41794, 76220 #### [facility] [address], [address] [place] [address] Medical Record Clerk: Jame Mena MD Magnesium [Mass/Vol] 117 mg/dL Normal [facility] Comment on above: Performed By: #### 3 6127, 90812, 6399, 96855, 96638 #### [facility] [address], [address] [place] [address] Medical Record Clerk: Jame Mena MD HbA1c (Bld) [Mass fraction]o n 09-18-2024 Average glucose Estimated from glycated hemoglobin (Bld) [Mass/Vol] 117 mg/dL [facility] Average glucose Estimated from glycated hemoglobin (Bld) [Moles/Vol] 6.5 mmol/L [facility] Hemoglobin A1Con 09-18-2024 HbA1c (Bld) [Mass fraction] 5.7 % [facility] Comment on above: For someone without known [...] Interpretation and review of laboratory results Abnormal [facility] FASTING:NO FASTING: NO [facility] TSH W/REFLEX TO FT4on 2024 TSH W/REFLEX TO FT4 2.56 mIU/L Normal 0.40-4.50 [facility] Comment on above: Performed By: #### 3 6127, 23288, 6399, 14582, 41369 #### [facility] [address], [address] [place] [address] Medical Record Clerk: Jame Mena MD Tsh With Reflex To Free T4 I f Abnormalon 09-18-2024 TSH Qn 2.56 m[IU]/L [facility] VITAMIN B12on 09-18-2024 Cobalamin (Vitamin B12) [Mass/Vol] 504 pg/mL Normal 200-1100 [facility] Comment on above: Performed By: #### 3 6127, 33632, 6399, 76853, 07062 #### [facility] [address], [address] [place], [place] [address] Medical Record Clerk: Jame Mena MD VITAMIN D,25-OH,TOTAL,IAon 0 09-18-2024 [...] D, (D2,D3), LC/MS/MS is recommended: order code 73905 (patients >2yrs). See Note 1 Note 1 For additional information, please refer to http://education.Cactus/faq/YPX468 (This link is being provided for informational/ educational purposes only.) Performed By: #### 3 6127, 03959, 6399, 40216, 42997 #### [facility] [address], [address] [place] [address] Medical Record Clerk: Jame Mena MD Vitamin B12on 09-18-2024 Cobalamin (Vitamin B12) [Mass/Vol] 504 pg/mL 200 - 1100 pg/mL [facility] 36on 08-10-2024 36 LVM with pt that pharmacy is working on Arimidex refill. Encouraged to call with any further concerns. Normal [facility] Office Visiton 08-10-2024 Follow-up visit [id number] Madiha Perales 1945 F Date Provider Department Center 08/10/2024 [id number] ESCOBEDO [facility] ONC None Family History Problem Relation Age of Onset Breast cancer Mother Lung cancer Father Colon cancer Paternal Grandfather Family Status - Relation Status Age at Mother Father Paternal Grandfather Level of Service:56462 ID OFFICE/OUTPATIENT ESTABLISHED LOW MDM 20 MIN Reason for Visit and Comments: Breast Cancer [302] Normal [facility] Progress Noteon 08-10-2024 Progress Note Hematology/Oncology Office Visit Oncology History: 1) stage 1A left breast cancer, invasive ductal carcinoma grade 3. ER+ ID+ HER2+. cT1b N0 M0; pT1c N0 M0, diagnosed 01/28/23. - Patient is a 78 yo F who presented with an abnormal screening mammogram of the upper outer quadrant of the left breast on 11/27/22. Diagnostic imaging and ultrasound were performed on 01/21/2023: a 0.9 x 0.9 x 1 cm irregular mass in the left breast. 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 The patient underwent lumpectomy and sentinel node removal on 02/18/[address] Choi at [facility]: pathology revealed grade 3 invasive ductal carcinoma measuring 1.9 cm. There was focal DCIS and extensive lymphovascular invasion. Margins were negative for invasive and in situ component at greater than 2 mm. 6 axillary nodes were removed: 5 sentinel and 1 nonsentinel. All were negative.Pathological ly staged T1CN0. - she was referred to [facility] for medical and radiation oncology. Her [...] She had a bilateral screening mammogram at [facility] on 03/25/24 which was negative for [...] back pain Breast calcifications on mammogram Dementia ([facility]) Depression Eczema H/O colonoscopy Hemorrhoid Hx of rosacea Lower extremity edema MARCY (obstructive sleep apnea) The patient wears CPAP Parkinson disease ([facility]) Stroke ([facility]) 2009 Torn meniscus Uterine cancer ([facility]) ([facility]) 2005 Past Surgical History: Procedure [...] left breast in female, estrogen receptor positive ([facility]) 03/18/2023 Edema of both lower [...] calcifications on mammogram 07/24/2013 Cerebrovascular accident (CVA) ([facility]) 06/23/2009 Social History Tobacco Use [...] [facility] Breast - bilateral scree vannesagon 03-26-2024 IMPRESSION: There is no mammographic evidence of malignancy. Routine follow-up mammogram in 1 year is recommended. BI-RADS Category 2: Benign Interpreting Radiologist: Cm Rausch M.D. Electronically signed on: 03/26/2024 [employer] Casting Machine Repairer: SURESH Transcribe Date/Time: Mar 25 2024 3:19P Dictated by : CM RAUSCH MD This examination was interpreted and the report reviewed and electronically signed by: CM RAUSCH MD on Mar 26 2024 10:24AM [facility] * * *Final Report* * * DATE OF EXAM: Mar 25 2024 3:42PM MAGO [id number] - LEE SCREENING W SHIVA / PROCEDURE REASON: multiple diagnoses * * * * Physician Interpretation * * * * [facility] [address] [id number] HISTORY: Patient is 79 years old and [...] other abnormalities are seen in either breast. [facility] Provider, [facility] - 03/26/2024 * * *Final Report* * * DATE OF EXAM: Mar 25 2024 3:42PM MAGO 0582 - LEE SCREENING W SHIVA / PROCEDURE REASON: multiple diagnoses * * * * Physician Interpretation * * * * [place] [address] HISTORY: Patient is 79 years old and [...] Cm Rausch M.D. Electronically signed on: 03/26/2024 [employer] Casting Machine Repairer: SURESH Transcribe Date/Time: Mar 25 2024 3:19P Dictated by : CM RAUSCH MD This examination was interpreted and the report reviewed and electronically signed by: CM RAUSCH MD on Mar 26 2024 10:24AM EST [facility] DBT Breast - bilateral scree ningOrdered By: Ccf Provider on 03-26-2024 [facility] DBT Breast - bilateral scree ningon 03-25-2024 Radiology Study observation (narrative) [facility] LEE SCREENING W TOMOon 03-25 LEE SCREENING W SHIVA * * *Final Report* * * DATE OF EXAM: Mar 25 2024 3:42PM MAGO 0582 - LEE SCREENING W SHIVA / PROCEDURE REASON: multiple diagnoses * * * * Physician Interpretation * * * * [place] [id number] HISTORY: Patient is 79 years old and [...] Cm Rausch M.D. Electronically signed on: 03/26/2024 [employer] Cast[employer] Machine Repairer: SURESH Transcribe Date/Time: Mar 25 2024 3:19P Dictated by : CM RAUSCH MD This examination was interpreted and the report reviewed and electronically signed by: CM RAUSCH MD on Mar 26 2024 10:24AM EST [id number] N [facility] Encounteron 024 Hospital Encounter [id number] Madiha Perales 1945 F Date Provider Department Center 03/16/2024 [id number] DIEGO [facility] RAD ON None Family History Problem Relation Age of Onset Breast cancer Mother Lung cancer Father Colon cancer Paternal Grandfather Family Status - Relation Status Age at Mother Father Paternal Grandfather Level of Service:92568 ID OFFICE/OUTPATIENT ESTABLISHED LOW [facility] 20 MIN Reason for Visit and Comments: Follow-up [663140] [facility] Nursing Noteon 03-16-2024 Nursing Note The patient is here at [facility] with her for follow up with Dr. Diego. She arrived in a wheelchair. She uses a care or walker at times to ambulate around the house. She does physical therapy at [facility]. She denies pain [...] and Dr. Escobedo. [facility] Progress Noteon 03-16-2024 Progress Note RADIATION ONCOLOGY FOLLOW UP PATIENT: Madiha Perales DATE OF SERVICE: 03/16/2024 : 1945 AGE: 79 y.o. PRIMARY SITE AND HISTOPATHOLOGY: Left breast, grade 3 invasive ductal carcinoma, ER positive, ID positive, HER2 positive. STAGE: cT1b N0 M0, [...] the left breast. Biopsy was performed at [facility] on 01/28/2023. This revealed grade 3 invasive ductal carcinoma measuring at least 8 mm in dimension. ER positive at 100%, ID positive at 70% and HER2 positive at [...] distance. She is undergoing physical therapy at [facility] physical therapy. She denies any breast [...] CALCIUM CARB-CHOLECALCIFEROL PO (more content not included)... [facility] 02-19-2024 [facility] Office Visit (GENSME ) MADIHA PERALES ([id number]) 1945 F Date Time Provider Department 02/19/24 [...] breast in female, estrogen receptor positive (HCC) [facility] Oncology Notes under scanned Documents INTERVAL [...] wheezes Extremiti (more content not included)... Normal [facility] 36on 02-03-2024 36 Refill for Arimidex pended to be signed if agreeable. Normal [facility]AD[facility] PREAL[facility] ([id number]) 1945 F Date Time Provider Department 02/03/24 TORRIE CHOI During your visit today, we recorded the following information about you: Brandie Rosenberg 02/03/2024 10:[address] Grubbs's office called to ask when patient needed scheduled for her next mamogram Yue Spear, RN 02/03/2024 10:48 AM Signed Order placed per patient's request for mammogram and/or breast ultrasound. Routed to provider/MD to approve. Danay Dubose PA-C 02/04/2024 8:01 AM Signed Orders [...] female, estrogen receptor positive (HCC) [C50.412, Z17.0] Order(s):[facility] SCREENING W SHIVA [[id number]] Order #: [id number] FUTURE Prescriptions as of 02/05/2024 - anastrozole [...] Toxic encephalopathy [G92.9] 10/09/2023 Encounter Status:Closed by BRANDIE ROSENBERG on 02/05/24 Normal [facility] Office Visiton 02-03-2024 Follow-up visit [id number] Madiha Perales 1945 F Date Provider Department Center 02/03/2024 [id number] ESCOBEDO ONC None Family History Problem Relation Age of Onset Breast cancer Mother Lung cancer Father Colon cancer Paternal Grandfather Family Status - Relation Status Age at Mother Father Paternal Grandfather Level of Service:17732 ID OFFICE/OUTPATIENT ESTABLISHED MOD MDM 30 MIN Reason for Visit and Comments: Breast Mass [440375] [facility] Progress Noteon 02-03-2024 Progress Note Hematology/Oncology Office Visit Oncology History: 1) stage 1A left breast cancer, invasive ductal carcinoma grade 3. ER+ ID+ HER2+. cT1b N0 M0; pT1c N0 M0, diagnosed 01/28/23. - Patient is a 78 yo F who presented with an abnormal screening mammogram of the upper outer quadrant of the left breast on 11/27/22. Diagnostic imaging and ultrasound were performed on 01/21/2023: a 0.9 x 0.9 x 1 cm irregular mass in the left breast. 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 The patient underwent lumpectomy and sentinel node removal on 02/18/[address] Choi at [facility]: pathology revealed grade 3 invasive ductal carcinoma measuring 1.9 cm. There was focal DCIS and extensive lymphovascular invasion. Margins were negative for invasive and in situ component at greater than 2 mm. 6 axillary nodes were removed: 5 sentinel and 1 nonsentinel. All were negative.Pathological ly staged T1CN0. - she was referred to [facility] for medical and radiation oncology. Her [...] back pain Breast calcifications on mammogram Dementia ([facility]) Depression Eczema H/O colonoscopy Hemorrhoid Hx of rosacea Lower extremity edema MARCY (obstructive sleep apnea) The patient wears CPAP Parkinson disease ([facility]) Stroke ([facility]) 2009 Torn meniscus Uterine cancer ([facility]) ([facility]) 2005 Past Surgical History: Procedure [...] left breast in female, estrogen receptor positive ([facility]) 03/18/2023 Edema of both lower extremities 02/05/2023 Parkinsonism 02/05/2023 Allergic reaction to bee sting 10/29/2022 Allergic rhinitis 10/29/2022 Eczema 10/29/2022 Eczema 10/29/2022 Elevated TSH 10/29/2022 External hemorrhoids 10/29/2022 Hair loss 10/29/2022 Low back pain 10/29/2022 Menopausal state 10/29/2022 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[facility]) 10/29/2022 Mixed anxiety depressive disorder 10/29/2022 Obesity (BMI 30.0-34.9) 10/29/2022 Obstructive sleep apnea syndrome 10/29/2022 Falling 10/29/2022 Seborrheic keratosis 10/29/2022 Rosacea, acne 10/15/2022 Hemangioma of skin and subcutaneous tissue 04/24/2016 Breast calcifications on mammogram 07/24/2013 Cerebrovascular accident (CVA) ([facility]) 06/23/2009 Social History Tobacco Use [...] [facility]-04-2023 Follow-up visit [id number] Madiha Perales Latha 1945 F Date Provider Department Center 11/04/2023 [id number] ESCOBEDO [facility] ONC None Family History Problem Relation Age of Onset Breast cancer Mother Lung cancer Father Colon cancer Paternal Grandfather Family Status - Relation Status Age at Mother Father Paternal Grandfather Level of Service:85564 ID OFFICE/OUTPATIENT ESTABLISHED [facility] 30 MIN Reason for Visit and Comments: Breast Cancer [302] Normal [facility] Progress Noteon 11-04-2023 Progress Note Hematology/Oncology Office Visit Oncology History: 1) stage 1A left breast cancer, invasive ductal carcinoma grade 3. ER+ ID+ HER2+. cT1b N0 M0; pT1c N0 M0, diagnosed 01/28/23. - Patient is a 78 yo F who presented with an abnormal screening mammogram of the upper outer quadrant of the left breast on 11/27/22. Diagnostic imaging and ultrasound were performed on 01/21/2023: a 0.9 x 0.9 x 1 cm irregular mass in the left breast. 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 The patient underwent lumpectomy and sentinel node removal on 02/18/[address] Choi at [facility]: pathology revealed grade 3 invasive ductal carcinoma measuring 1.9 cm. There was focal DCIS and extensive lymphovascular invasion. Margins were negative for invasive and in situ component at greater than 2 mm. 6 axillary nodes were removed: 5 sentinel and 1 nonsentinel. All were negative.Pathological ly staged T1CN0. - she was referred to [facility] for medical and radiation oncology. Her [...] apnea) The patient wears CPAP Parkinson disease ([facility]) Stroke ([facility]) 2009 Torn meniscus Uterine cancer [...] calcifications on mammogram 07/24/2013 Cerebrovascular accident (CVA) ([facility]) 06/23/2009 Social History Tobacco Use [...] Medications Medicat (more content not included)... Normal [facility] Basic metabolic 2000 panelon 10-27-2023 Anion gap [Moles/Vol] 12 mmol/L 9 - 18 mmol/L [facility] Calcium [Mass/Vol] 8.5 mg/dL 8.5 - 10. 2 mg/dL [facility] Chloride [Moles/Vol] 107 mmol/L High 97 - 10 5 mmol/L [facility] CO2 [Moles/Vol] 24 mmol/L 22 - 30 mmol/L [facility] Creatinine [Mass/Vol] 0.71 mg/dL 0.58 - 0.96 mg/dL [facility] GFR/1.73 sq M.predicted among non-blacks MDRD (S/P/Bld) [Vol rate/Area] 88 mL/min/{1.73_m2} - PINF [facility] Comment on above: Estimated Glomerular Filtration [...] [Mass/Vol] 77 mg/dL 74 - 99 mg/dL [facility] Comment on above: The [place] Di[employer] s Association (ADA) provides guidance for [...] Standards of Medical Care in Diabetes 2016, [place] Diabetes Association. Diabetes Care. 2016.39(Suppl 1). Interpretation and review of laboratory results Abnormal [facility] Potassium [Moles/Vol] 4.2 mmol/L 3.7 - 5.1 mmol/L [facility] Sodium [Moles/Vol] 143 mmol/L 136 - 144 mmol/L [facility] Urea nitrogen [Mass/Vol] 17 mg/dL 7 - 21 mg/dL [facility] CBC panel Auto (Bld)on 10-26 Erythrocyte distribution width (RBC) [Ratio] 14.8 % 11.5 - 15.0 % [facility] Hematocrit (Bld) [Volume fraction] 39.8 % 36.0 - 46.0 % [facility] Hemoglobin (Bld) [Mass/Vol] 12.9 g/dL 11.5 - 15.5 g/dL [facility] Interpretation and review of laboratory results Normal [facility] MCH (RBC) [Entitic mass] 29.9 pg 26.0 - 34.0 pg [facility] MCHC (RBC) [Mass/Vol] 32.4 g/dL 30.5 - 36.0 g/dL [facility] MCV (RBC) [Entitic vol] 92.1 fL 80.0 - 100.0 fL [facility] Nucleated RBC (Bld) [#/Vol] NINF [facility] Platelet mean volume (Bld) [Entitic vol] 10.6 fL 9.0 - 12.7 fL [facility] Platelets (Bld) [#/Vol] 168 10*3/uL [facility] RBC (Bld) [#/Vol] 4.32 10*6/uL 3.90 - 5.2 0 m/uL [facility] WBC (Bld) [#/Vol] 5.72 10*3/uL [facility] Basic metabolic 2000 panelon 10-23-2023 Anion gap [Moles/Vol] 9 mmol/L 9 - 18 mmol/L [facility] Calcium [Mass/Vol] 8.5 mg/dL 8.5 - 10. 2 mg/dL [facility] Chloride [Moles/Vol] 104 mmol/L 97 - 10 5 mmol/L [facility] CO2 [Moles/Vol] 27 mmol/L 22 - 30 mmol/L [facility] Creatinine [Mass/Vol] 0.73 mg/dL 0.58 - 0.96 mg/dL [facility] GFR/1.73 sq M.predicted among non-blacks MDRD (S/P/Bld) [Vol rate/Area] 85 mL/min/{1.73_m2} - PINF [facility] Comment on above: Estimated Glomerular Filtration [...] [Mass/Vol] 76 mg/dL 74 - 99 mg/dL [facility] Comment on above: The [place] Diabete s Association (ADA) provides guidance for [...] Standards of Medical Care in Diabetes 2016, [place] Diabetes Association. Diabetes Care. 2016.39(Suppl 1). Interpretation and review of laboratory results Normal [facility] Potassium [Moles/Vol] 4.2 mmol/L 3.7 - 5.1 mmol/L [facility] Sodium [Moles/Vol] 140 mmol/L 136 - 144 mmol/L [facility] Urea nitrogen [Mass/Vol] 15 mg/dL 7 - 21 mg/dL [facility] CBC panel Auto (Bld)on 10-22 Erythrocyte distribution width (RBC) [Ratio] 15.0 % 11.5 - 15.0 % [facility] Hematocrit (Bld) [Volume fraction] 42.1 % 36.0 - 46.0 % [facility] Hemoglobin (Bld) [Mass/Vol] 13.7 g/dL 11.5 - 15.5 g/dL [facility] Interpretation and review of laboratory results Normal [facility] MCH (RBC) [Entitic mass] 29.9 pg 26.0 - 34.0 pg [facility] MCHC (RBC) [Mass/Vol] 32.5 g/dL 30.5 - 36.0 g/dL [facility] MCV (RBC) [Entitic vol] 91.9 fL 80.0 - 100.0 fL [facility] Nucleated RBC (Bld) [#/Vol] NINF [facility] Platelet mean volume (Bld) [Entitic vol] 10.5 fL 9.0 - 12.7 fL [facility] Platelets (Bld) [#/Vol] 164 10*3/uL [facility] RBC (Bld) [#/Vol] 4.58 10*6/uL 3.90 - 5.2 0 m/uL [facility] WBC (Bld) [#/Vol] 7.20 10*3/uL [facility] Basic metabolic 2000 panelon 10-20-2023 Anion gap [Moles/Vol] 7 mmol/L Low 9 - 18 mmol/L [facility] Calcium [Mass/Vol] 8.4 mg/dL Low 8.5 - 10. 2 mg/dL [facility] Chloride [Moles/Vol] 101 mmol/L 97 - 10 5 mmol/L [facility] CO2 [Moles/Vol] 31 mmol/L High 22 - 30 mmol/L [facility] Creatinine [Mass/Vol] 0.91 mg/dL 0.58 - 0.96 mg/dL [facility] GFR/1.73 sq M.predicted among non-blacks MDRD (S/P/Bld) [Vol rate/Area] 65 mL/min/{1.73_m2} - PINF [facility] Comment on above: Estimated Glomerular Filtration [...] [Mass/Vol] 83 mg/dL 74 - 99 mg/dL [facility] Comment on above: The [place] Diabete s Association (ADA) provides guidance for [...] Standards of Medical Care in Diabetes 2016, [place] Diabetes Association. Diabetes Care. 2016.39(Suppl 1). Interpretation and review of laboratory results Abnormal [facility] Potassium [Moles/Vol] 4.4 mmol/L 3.7 - 5.1 mmol/L [facility] Sodium [Moles/Vol] 139 mmol/L 136 - 144 mmol/L [facility] Urea nitrogen [Mass/Vol] 30 mg/dL High 7 - 21 mg/dL [facility] CBC panel Auto (Bld)on 10-19 Erythrocyte distribution width (RBC) [Ratio] 15.0 % 11.5 - 15.0 % [facility] Hematocrit (Bld) [Volume fraction] 42.7 % 36.0 - 46.0 % [facility] Hemoglobin (Bld) [Mass/Vol] 13.7 g/dL 11.5 - 15.5 g/dL [facility] Interpretation and review of laboratory results Abnormal [facility] MCH (RBC) [Entitic mass] 29.9 pg 26.0 - 34.0 pg [facility] MCHC (RBC) [Mass/Vol] 32.1 g/dL 30.5 - 36.0 g/dL [facility] MCV (RBC) [Entitic vol] 93.2 fL 80.0 - 100.0 fL [facility] Nucleated RBC (Bld) [#/Vol] NINF [facility] Platelet mean volume (Bld) [Entitic vol] 10.6 fL 9.0 - 12.7 fL [facility] Platelets (Bld) [#/Vol] 184 10*3/uL [facility] RBC (Bld) [#/Vol] 4.58 10*6/uL 3.90 - 5.2 0 m/uL [facility] WBC (Bld) [#/Vol] 11.11 10*3/uL [facility] Basic metabolic 2000 panelon 10-16-2023 Anion gap [Moles/Vol] 9 mmol/L 9 - 18 mmol/L [facility] Calcium [Mass/Vol] 9.1 mg/dL 8.5 - 10. 2 mg/dL [facility] Chloride [Moles/Vol] 101 mmol/L 97 - 10 5 mmol/L [facility] CO2 [Moles/Vol] 29 mmol/L 22 - 30 mmol/L [facility] Creatinine [Mass/Vol] 0.66 mg/dL 0.58 - 0.96 mg/dL [facility] GFR/1.73 sq M.predicted among non-blacks MDRD (S/P/Bld) [Vol rate/Area] 90 mL/min/{1.73_m2} - PINF [facility] Comment on above: Estimated Glomerular Filtration [...] [Mass/Vol] 91 mg/dL 74 - 99 mg/dL [facility] Comment on above: The [place] Diabete s Association (ADA) provides guidance for [...] Standards of Medical Care in Diabetes 2016, [place] Diabetes Association. Diabetes Care. 2016.39(Suppl 1). Interpretation and review of laboratory results Abnormal [facility] Potassium [Moles/Vol] 4.7 mmol/L 3.7 - 5.1 mmol/L [facility] Sodium [Moles/Vol] 139 mmol/L 136 - 144 mmol/L [facility] Urea nitrogen [Mass/Vol] 29 mg/dL High 7 - 21 mg/dL [facility] CBC panel Auto (Bld)on 10-15 Erythrocyte distribution width (RBC) [Ratio] 14.4 % 11.5 - 15.0 % [facility] Hematocrit (Bld) [Volume fraction] 46.6 % High 36.0 - 46.0 % [facility] Hemoglobin (Bld) [Mass/Vol] 15.3 g/dL 11.5 - 15.5 g/dL [facility] Interpretation and review of laboratory results Abnormal [facility] MCH (RBC) [Entitic mass] 30.1 pg 26.0 - 34.0 pg [facility] MCHC (RBC) [Mass/Vol] 32.8 g/dL 30.5 - 36.0 g/dL [facility] MCV (RBC) [Entitic vol] 91.6 fL 80.0 - 100.0 fL [facility] Nucleated RBC (Bld) [#/Vol] NINF [facility] Platelet mean volume (Bld) [Entitic vol] 10.8 fL 9.0 - 12.7 fL [facility] Platelets (Bld) [#/Vol] 219 10*3/uL [facility] RBC (Bld) [#/Vol] 5.09 10*6/uL 3.90 - 5.2 0 m/uL [facility] WBC (Bld) [#/Vol] 12.59 10*3/uL [facility] 36on 10-13-2023 36 Spoke with Sg about Citlaly. Citlaly was admitted to [facility] last Friday10/07/23. She says that she presented [...] her home on Friday and a good mandaen found her and assisted her. She is [...] 30 days prior to this severe episode. Sg is unsure if worsening confusion could be [...] name was Citlaly and could say that Sg was her daughter. Otherwise was confused to place, time, and situation. That has improved since being on Remdesevir and the steroids. Recommended that she reach out to Citllay's neurologist with an update. She is unsure [...] time. Cancelled infusion treatment scheduled for tomorrow. Sg to reach out to our office on discharge from [facility]. Will plan for Dr. Escobedo to [...] [#/Vol] 0.0 10*3/uL 0.0 - 0.2 10*3/uL [facility] Basophils/100 WBC (Bld) 0.5 % 0.0 - 2.0 % [facility] Eosinophils (Bld) [#/Vol] 0.1 10*3/uL 0.0 - 0.5 10*3/uL [facility] Eosinophils/100 WBC (Bld) 2.2 % 0.0 - 6.0 % [facility] Erythrocyte distribution width (RBC) [Ratio] 13.9 % 11.5 - 15.0 % [facility] Hematocrit (Bld) [Volume fraction] 43.9 % 35.0 - 47.0 % [facility] Hemoglobin (Bld) [Mass/Vol] 14.2 g/dL 11.7 - 16.0 g/dL [facility] Immature granulocytes (Bld) [#/Vol] 0.0 10*3/uL NINF - 0.1 10*3/uL [facility] Immature granulocytes/100 WBC (Bld) 0.4 % 0.0 - 2.0 % [facility] Interpretation and review of laboratory results Abnormal [facility] Lymphocytes (Bld) [#/Vol] 0.9 10*3/uL Low 1.0 - 4.3 10*3/uL [facility] Lymphocytes/100 WBC (Bld) 16.8 % 15.0 - 45.0 % [facility] MCH (RBC) [Entitic mass] 29.8 pg 26.0 - 34.0 pg [facility] MCHC (RBC) [Mass/Vol] 32.3 % 30.5 - 36.0 % [facility] MCV (RBC) [Entitic vol] 92.2 fL 77.0 - 99.0 fL [facility] Monocytes (Bld) [#/Vol] 0.4 10*3/uL 0.0 - 0.9 10*3/uL [facility] Monocytes/100 WBC (Bld) 6.8 % 5.0 - 13.0 % [facility] Neutrophils (Bld) [#/Vol] 4.0 10*3/uL 1.8 - 7.5 10*3/uL [facility] Neutrophils/100 WBC (Bld) 73.3 % 38.0 - 82.0 % [facility] Nucleated RBC/100 WBC (Bld) [Ratio] 0.0 % [facility] Platelet mean volume (Bld) [Entitic vol] 9.8 fL 9.0 - 12.7 fL [facility] Comment on above: MPV is a calculated measurement using platelet volume ratio Platelets (Bld) [#/Vol] 205 10*3/uL 140 - 440 10*3/uL [facility] RBC (Bld) [#/Vol] 4.76 10*6/uL 3.80 - 5.2 0 10*6/uL [facility] WBC (Bld) [#/Vol] 5.5 10*3/uL 3.6 - 10.7 10*3/uL [facility] CBC WITH AUTO DIFFERENTIALon 09-23-2023 Basophils (Bld) [#/Vol] 0.0 10*3/uL Normal 0.0-0.2 [facility] Comment on above: Performed By: #### L [id number] ####Medical Record Clerk: GRISELDA ROSALES ([phone])[facility] ([facility])[address] [place] [address] Basophils/100 WBC (Bld) 0.5 % Normal 0.0-2.0 [facility] Comment on above: Performed By: #### L [id number] ####Medical Record Clerk: GRISELDAJAZMYN ROSALES ([phone])[facility] ([facility] [place] [address] Eosinophils (Bld) [#/Vol] 0.1 10*3/uL Normal 0.0-0.5 [facility] Comment on above: Performed By: #### L [id number] ####Medical Record Clerk: GRISELDAJAZMYN ROSALES ([phone])[facility] [place] [address] Eosinophils/100 WBC (Bld) 2.2 % Normal 0.0-6.0 [facility] Comment on above: Performed By: #### L [id number] ####Medical Record Clerk: GRISELDA ROSALES ([id number])[facility] ([facility])[address] [place] [address] Erythrocyte distribution width (RBC) [Ratio] 13.9 % Normal 11.5-15.0 [facility] Comment on above: Performed By: #### L [id number] ####Medical Record Clerk: GRISELDAJAZMYN ROSALES ([phone])[facility] ([facility])[address] [place] [address] Hematocrit (Bld) [Volume fraction] 43.9 % Normal 35.0-47.0 [facility] Comment on above: Performed By: #### L [id number] ####Medical Record Clerk: GRISELDA CONNIE ([id number])[facility] ([facility])[address] [place] [address] Hemoglobin (Bld) [Mass/Vol] 14.2 g/dL Normal 11.7-16.0 [facility] Comment on above: Performed By: #### L [id number] ####Medical Record Clerk: GRISELDA CONNIE ([phone])[facility] ([facility])[address] [place] [address] IMMATURE GRANS % 0.4 % Normal 0.0-2.0 [facility] Comment on above: Performed By: #### L [id number] ####Medical Record Clerk: GRISELDAJAZMYN ROSALES ([id number])[facility] ([facility])[address] [place] [address] IMMATURE GRANS ABSOLUTE 0.0 10*3/uL Normal <0.1 [facility] Comment on above: Performed By: #### L [id number] ####Medical Record Clerk: GRISELDAJAZMYN ROSALES ([phone])[facility] ([facility])[address] [place] [address] Lymphocytes (Bld) [#/Vol] 0.9 10*3/uL Low 1.0-4.3 [facility] Comment on above: Performed By: #### L [id number] ####Medical Record Clerk: GRISELDA ROSALES ([phone])[facility] ([facility])[address] [place] [address] Lymphocytes/100 WBC (Bld) 16.8 % Normal 15.0-45.0 [facility] Comment on above: Performed By: #### L [id number] ####Medical Record Clerk: GRISELDAJAZMYN ROSALES ([phone])[facility] ([facility])[address] [place] [address] MCH (RBC) [Entitic mass] 29.8 pg Normal 26.0-34.0 [facility] Comment on above: Performed By: #### L [id number] ####Medical Record Clerk: GRISELDAJAZMYN ROSALES ([id number])[facility] ([facility])[address] [place] [address] MCHC 32.3 % Normal 30.5-36.0 [facility] Comment on above: Performed By: #### L [id number] ####Medical Record Clerk: GRISELDA CONNIE ([id number])[facility] ([facility])[address] [place] [address] MCV (RBC) [Entitic vol] 92.2 fL Normal 77.0-99.0 [facility] Comment on above: Performed By: #### L [id number] ####Medical Record Clerk: GRISELDA ROSALES ([phone])[facility] ([facility])[address] [place] [address] Monocytes (Bld) [#/Vol] 0.4 10*3/uL Normal 0.0-0.9 [facility] Comment on above: Performed By: #### L [id number] ####Medical Record Clerk: GRISELDA HAYSADALGISA ([phone])[facility] ([facility])[address] [place] [address] Monocytes/100 WBC (Bld) 6.8 % Normal 5.0-13.0 [facility] Comment on above: Performed By: #### L [id number] ####Medical Record Clerk: GRISELDA HAYSADALGISA ([id number])[facility] ([facility])[address] [place] [address] NEUTROPHILS ABSOLUTE 4.0 10*3/uL Normal 1.8-7.5 [facility] Comment on above: Performed By: #### L [id number] ####Medical Record Clerk: GRISELDA HAYSADALGISA ([phone])[facility] ([facility])[address] [place] [address] Neutrophils/100 WBC (Bld) 73.3 % Normal 38.0-82.0 [facility] Comment on above: Performed By: #### L [id number] ####Medical Record Clerk: GRISELDA ROSALES ([id number])[facility] ([facility])[address] [place] [address] NRBC 0.0 /100 WBCs Normal 0.0-2.0 [facility] Comment on above: Performed By: #### L [id number] ####Medical Record Clerk: GRISELDA HAYSADALGISA ([phone])[facility] [place] [address] Platelet mean volume (Bld) [Entitic vol] 9.8 fL Normal 9.0-12.7 [facility] Comment on above: Result Comment: MPV is a calculated measurement using platelet volume ratio Performed By: #### L [id number] ####Medical Record Clerk: GRISELDA JHACER ([id number])[facility] ([facility])[address] [place] [address] Platelets (Bld) [#/Vol] 205 10*3/uL Normal 140-440 [facility] Comment on above: Performed By: #### L [id number] ####Medical Record Clerk: GRISELDA SIMMONSJAKE ([id number])[facility] [place] [address] RBC (Bld) [#/Vol] 4.76 10*6/uL Normal 3.80-5.20 [facility] Comment on above: Performed By: #### L [id number] ####Medical Record Clerk: GRISELDA ROSALES ([id number])[facility] ([facility])[address] [place] [address] WBC (Bld) [#/Vol] 5.5 10*3/uL Normal 3.6-10.7 [facility] Comment on above: Performed By: #### L [id number] ####Medical Record Clerk: GRISELDA HAYSADALGISA ([id number])[facility] ([facility])[address] [place] [address] Comprehensive metabolic 2000 panelon 09-23-2023 Albumin [Mass/Vol] 3.4 g/dL 3.3 - 5.5 g/dL [facility] ALP [Catalytic activity/Vol] 83 U/L 42 - 141 U/L [facility] ALT [Catalytic activity/Vol] 20 U/L 10 - 47 U/L [facility] Anion gap [Moles/Vol] 9.00 mmol/L -4.00 - 12.00 mmol/L [facility] AST [Catalytic activity/Vol] 29 U/L 11 - 38 U/L [facility] Bilirubin [Mass/Vol] 0.7 mg/dL 0.2 - 1 .6 mg/dL [facility] Calcium [Mass/Vol] 9.3 mg/dL 8.0 - 10. 3 mg/dL [facility] Chloride [Moles/Vol] 104 mmol/L [facility] CO2 [Moles/Vol] 27 mmol/L [facility] GFR/1.73 sq M.predicted MDRD (S/P/Bld) [Vol rate/Area] 76.0 mL/min/{1.73_m2} - PINF [facility] Glucose [Mass/Vol] 133 mg/dL High 73 - 118 mg/dL [facility] Interpretation and review of laboratory results Abnormal [facility] [facility] Potassium [Moles/Vol] 3.8 mmol/L [facility] Protein [Mass/Vol] 6.5 g/dL 6.4 - 8.1 g/dL [facility] Sodium [Moles/Vol] 140 mmol/L [facility] Urea nitrogen [Mass/Vol] 19 mg/dL 7 - 22 mg/dL [facility] Urea nitrogen/Creatinine [Mass ratio] 0.8 mg/dL 0.6 - 1.2 mg/dL [facility] Progress Noteon 09-23-2023 Progress Note Patient arrived for Q 3 week Trazimera infusion. Per patient family patient had unwitnessed fall this week. Patient did not have walker with her and fell,helped back to house by good [facility].Patient denies injury. Encouraged patient family if noticed [...] ambulatory with family prior to discharge. Normal [facility] Heart TransthoracicOrdere d By: Sachin Watkins on 09-18-2023 Aortic Sinus Valsalva 3.3 cm [facility] Work Phone: Aortic Sinus Valsalva Index 1.66 cm/m2 [facility] Work Phone: AR Max Velocity PISA 3.5 m/s [facility] Work Phone: AR PHT 456.7 ms [facility] Work Phone: Ascending Aorta 3.5 cm [facility] Work Phone: Ascending Aorta Index 1.76 cm/m2 [facility] Work Phone: AV Area by Peak Velocity 2.4 cm2 [facility] Work Phone: AV Area by [...] ealth Work Phone: AV VTI 22.8 cm [facility] Work Phone: BHARTI/BSA Peak Velocity 1.2 cm2/m2 [facility] Work Phone: BHARTI/BSA VTI 1.4 cm2/m2 [facility] Work Phone: E/E' Lateral 7.43 [facility] Work Phone: E/E' Ratio (Averaged) 8.05 [facility] Work Phone: E/E' Septal 8.67 [facility] Work Phone: EF BP 60 % 55 - 100 % [facility] Work Phone: Fractional Shortening 2D 24 % 28 - 44 % [facility] Work Phone: Global Longitudinal Strain -17.3 % [facility] Work Phone: Interpretation and review of laboratory results Abnormal [facility] Work Phone: IVC Diameter 2.1 cm [facility] Work Phone: IVSd 1.1 cm Abnormal 0.6 - 0.9 cm [facility] Work Phone: LA Volume 2C 79 mL Abnormal 22 - 52 mL [facility] Work Phone: LA Volume 4C 65 mL Abnormal 22 - 52 mL [facility] Work Phone: LA Volume A/L 78 mL [facility] Work Phone: LA Volume Index 2C 40 mL/m2 Abnormal 16 - 34 mL/m2 [facility] Work Phone: LA Volume Index 4C 33 mL/m2 16 - 34 mL/m2 [facility] Work Phone: LA Volume Index A/L 39 mL/m2 16 - 34 mL/m2 [facility] Work Phone: LV E' Lateral Velocity 7 cm/s [facility] Work Phone: LV E' Septal Velocity 6 cm/s [facility] Work Phone: LV EDV A2C 87 mL [facility] Work Phone: LV EDV A4C 66 mL [facility] Work Phone: LV EDV BP 77 mL 56 - 104 mL [facility] Work Phone: LV EDV Index A2C 44 mL/m2 [facility] Work Phone: LV EDV Index A4C 33 mL/m2 [facility] Work Phone: LV EDV Index BP 39 mL/m2 [facility] Work Phone: LV Ejection Fraction A2C 58 % [facility] Work Phone: LV Ejection Fraction A4C 60 % [facility] Work Phone: LV ESV A2C 37 mL [facility] Work Phone: LV ESV A4C 26 mL [facility] Work Phone: LV ESV BP 31 mL 19 - 49 mL [facility] Work Phone: LV ESV Index A2C 19 mL/m2 [facility] Work Phone: LV ESV Index A4C 13 mL/m2 [facility] Work Phone: LV ESV Index BP 16 mL/m2 [facility] Work Phone: LV Mass 2D 96.9 g 67 - 162 g [facility] Work Phone: LV Mass 2D Index 48.7 g/m2 43 - 95 g/m2 [facility] Work Phone: LV RWT Ratio 0.38 [facility] Work Phone: LVIDd 3.7 cm Abnormal 3.9 - 5.3 cm [facility] Work Phone: LVIDd Index 1.86 cm/m2 [facility] Work Phone: LVIDs 2.8 cm [facility] Work Phone: LVIDs Index 1.41 cm/m2 [facility] Work Phone: LVOT Area 3.1 cm2 [facility] Work Phone: LVOT Cardiac Output 5.4 liter/mi nut e [facility] Work Phone: LVOT Diameter 2.0 cm [facility] Work Phone: LVOT Mean Gradient 2 mmHg [facility] Work Phone: LVOT Peak Gradient 4 mmHg [facility] Work Phone: LVOT Peak Velocity 1.0 m/s [facility] Work Phone: LVOT Stroke Volume Index 30.1 mL/m2 [facility] Work Phone: LVOT SV 60.0 ml [facility] Work Phone: LVOT VTI 19.1 cm [facility] Work Phone: LVOT:AV VTI Index 0.84 [facility] Work Phone: LVPWd 0.7 cm 0.6 - 0.9 cm [facility] Work Phone: MV A Velocity 0.78 m/s [facility] Work Phone: MV E Velocity 0.52 m/s [facility] Work Phone: MV E Wave Deceleration Time 275.7 ms [facility] Work Phone: MV E/A 0.67 [facility] Work Phone: RV Free Wall Peak S' 15 cm/s [facility] Work Phone: Sinotubular Junction 2.8 cm [facility] Work Phone: TAPSE 2.0 cm 1.7 cm [facility] Work Phone: [facility] Work Phone: Heart Transthoracicon Left Ventricle: Left [...] Additional Conclusions No significant valvular abnormalities. CV [facility] Hospital Encounteron 024 Hospital Encounter [id number] Madiha Perales 1945 F Date Provider Department Center 09/12/2023 [id number] DIEGO [facility] RAD ON None Family History Problem Relation Age of Onset Breast cancer Mother Lung cancer Father Colon cancer Paternal Grandfather Family Status - Relation Status Age at Mother Father Paternal Grandfather Level of Service:73663 ID OFFICE/OUTPT VISIT,PROCEDURE ONLY Reason for Visit and Comments: Follow-up [360019] Normal [facility] Nursing Noteon [...] grade 3 invasive ductal carcinoma, ER positive, ID positive, HER2 positive. STAGE: cT1b N0 M0, [...] the left breast. Biopsy was performed at [facility] on 01/28/2023. This revealed grade 3 invasive ductal carcinoma measuring at least 8 mm in dimension. ER positive at 100%, ID positive at 70% and HER2 positive at [...] The patient wears CPAP Parkinson disease Stroke ([facility]) 2009 Torn meniscus Uterine cancer ([facility]) ([facility]) 2005 PAST SURGICAL HISTORY: Past [...] [facility] DEXA BONE DENSITY AXIAL SKEL Jose 09-05-2023 DEXA BONE DENSITY AXIAL SKELETON Patient Name: MADIHA PERALES : 1945 [facility]#: [id number] Exam Date/Time: 09/05/2023 10:04 Procedure: DEXA BONE DENSITY AXIAL SKELETON Ordering Provider: ESCOBEDO TERESA Reason For Exam: screening for osteoporosis DEXA BONE DENSITOMETRY: CLINICAL INDICATION: Asymptomatic post-menopausal status COMPARISON: None TECHNIQUE: Quantitative bone mineral densitometry of the hip and lumbar spine was performed with a dual energy x-ray observed absorptiometry device - [employer] Horizon W. Regions of interest were obtained [...] Electronically Signed Date/Time: 09/05/2023 3:32 PM T [facility] DXA Skeletal system.axial Vi ews [...] MD Electronically Signed Date/Time: 09/05/2023 3:32 PM [facility] Patient Name: MADIHA PERALES : 1945 Exam Date/Time: 09/05/2023 10:04 Procedure: DEXA BONE DENSITY AXIAL SKELETON Ordering Provider: ESCOBEDO TERESA Reason For Exam: screening for osteoporosis DEXA BONE DENSITOMETRY: CLINICAL INDICATION: Asymptomatic post-menopausal status COMPARISON: None TECHNIQUE: Quantitative bone mineral densitometry of the hip and lumbar spine was performed with a dual energy x-ray observed absorptiometry device - [employer] Horizon W. Regions of interest were obtained [...] 0.3 Z-score: 2.2 Comparison from prior examination:N/A [facility] Brayden Green MD - 09/05/2023 Patient Name: MADIHA PERALES : 1945 Exam Date/Time: 09/05/2023 10:04 Procedure: DEXA BONE DENSITY AXIAL SKELETON Ordering Provider: ESCOBEDO TERESA Reason For Exam: screening for osteoporosis DEXA BONE DENSITOMETRY: CLINICAL INDICATION: Asymptomatic post-menopausal status COMPARISON: None TECHNIQUE: Quantitative bone mineral densitometry of the hip and lumbar spine was performed with a dual energy x-ray observed absorptiometry device - [employer] Horizon W. Regions of interest were obtained [...] Electronically Signed Date/Time: 09/05/2023 3:32 PM EDT [facility] Radiology Study observation (narrative) [facility] alth DXA Skeletal system.axial Vi ews for bone densityOrdered By: Brayden Green on 09-05-2023 [email or web address] [facility] Work Phone: CBC W Auto Differential pane l (Bld)on 09-02-2023 Basophils (Bld) [#/Vol] 0.0 10*3/uL 0.0 - 0.2 10*3/uL [facility] Basophils (Bld) [#/Vol] 0 10*3/uL 0.0 - 0.2 10*3/uL [facility] Basophils/100 WBC (Bld) 0.6 % 0.0 - 2.0 % [facility] Eosinophils (Bld) [#/Vol] 0.2 10*3/uL 0.0 - 0.5 10*3/uL [facility] Eosinophils/100 WBC (Bld) 3.1 % 0.0 - 6.0 % [facility] Erythrocyte distribution width (RBC) [Ratio] 13.8 % 11.5 - 15.0 % [facility] Hematocrit (Bld) [Volume fraction] 42.0 % 35.0 - 47.0 % [facility] Hematocrit (Bld) [Volume fraction] 42 % 35.0 - 47.0 % [facility] Hemoglobin (Bld) [Mass/Vol] 13.7 g/dL 11.7 - 16.0 g/dL [facility] Immature granulocytes (Bld) [#/Vol] 0.0 10*3/uL NINF - 0.1 10*3/uL [facility] Immature granulocytes (Bld) [#/Vol] 0 10*3/uL NINF - 0.1 10*3/uL [facility] Immature granulocytes/100 WBC (Bld) 0.4 % 0.0 - 2.0 % [facility] Interpretation and review of laboratory results Abnormal [facility] Lymphocytes (Bld) [#/Vol] 0.7 10*3/uL Low 1.0 - 4.3 10*3/uL [facility] Lymphocytes/100 WBC (Bld) 14.3 % Low 15.0 - 45.0 % [facility] MCH (RBC) [Entitic mass] 30.4 pg 26.0 - 34.0 pg [facility] MCHC (RBC) [Mass/Vol] 32.6 % 30.5 - 36.0 % [facility] MCV (RBC) [Entitic vol] 93.3 fL 77.0 - 99.0 fL [facility] Monocytes (Bld) [#/Vol] 0.4 10*3/uL 0.0 - 0.9 10*3/uL [facility] Monocytes/100 WBC (Bld) 8.4 % 5.0 - 13.0 % [facility] Neutrophils (Bld) [#/Vol] 3.7 10*3/uL 1.8 - 7.5 10*3/uL [facility] Neutrophils/100 WBC (Bld) 73.2 % 38.0 - 82.0 % [facility] Nucleated RBC/100 WBC (Bld) [Ratio] 0.0 % [facility] Nucleated RBC/100 WBC (Bld) [Ratio] 0 % [facility] Platelet mean volume (Bld) [Entitic vol] 9.2 fL 9.0 - 12.7 fL [facility] Comment on above: MPV is a calculated measurement using platelet volume ratio Platelets (Bld) [#/Vol] 188 10*3/uL 140 - 440 10*3/uL [facility] RBC (Bld) [#/Vol] 4.50 10*6/uL 3.80 - 5.2 0 10*6/uL [facility] RBC (Bld) [#/Vol] 4.5 10*6/uL 3.80 - 5.2 0 10*6/uL [facility] WBC (Bld) [#/Vol] 5.1 10*3/uL 3.6 - 10.7 10*3/uL [facility] CBC WITH AUTO DIFFERENTIALon 09-02-2023 Basophils (Bld) [#/Vol] 0.0 10*3/uL Normal 0.0-0.2 [facility] Comment on above: Performed By: #### L [id number] #### Medical Record Clerk: GRISELDA ROSALES ([id number]) [facility] [address] [place] [address] Basophils/100 WBC (Bld) 0.6 % Normal 0.0-2.0 [facility] Comment on above: Performed By: #### L [id number] #### Medical Record Clerk: GRISELDA ROSALES ([id number]) [facility] [address] [place] [address] Eosinophils (Bld) [#/Vol] 0.2 10*3/uL Normal 0.0-0.5 [facility] Comment on above: Performed By: #### L [id number] #### Medical Record Clerk: GRISELDA ROSALES ([id number]) [facility] [address] [place] [address] Eosinophils/100 WBC (Bld) 3.1 % Normal 0.0-6.0 [facility] Comment on above: Performed By: #### L [id number] #### Medical Record Clerk: GRISELDA ROSALES ([phone]) [facility] [address] [place] [address] Erythrocyte distribution width (RBC) [Ratio] 13.8 % Normal 11.5-15.0 [facility] Comment on above: Performed By: #### L [id number] #### Medical Record Clerk: GRISELDA ROSALES ([id number]) [facility] [address] [place] [address] Hematocrit (Bld) [Volume fraction] 42.0 % Normal 35.0-47.0 [facility] Comment on above: Performed By: #### L [id number] #### Medical Record Clerk: GRISELDA ROSALES ([id number]) [facility] [address] [place] [address] Hemoglobin (Bld) [Mass/Vol] 13.7 g/dL Normal 11.7-16.0 [facility] Comment on above: Performed By: #### L [id number] #### Medical Record Clerk: GRISELDA ROSALES ([id number]) [facility] ([facility] [address] [place] [address] IMMATURE GRANS % 0.4 % Normal 0.0-2.0 [facility] Comment on above: Performed By: #### L [id number] #### Medical Record Clerk: GRISELDA HAYSADALGISA ([id number]) [facility] ([facility] [address] [place] [address] IMMATURE GRANS ABSOLUTE 0.0 10*3/uL Normal <0.1 [facility] Comment on above: Performed By: #### L [id number] #### Medical Record Clerk: GRISELDA ROSALES ([id number]) [facility] [address] [place] [address] Lymphocytes (Bld) [#/Vol] 0.7 10*3/uL Low 1.0-4.3 [facility] Comment on above: Performed By: #### L [id number] #### Medical Record Clerk: GRISELDA ROSALES ([id number]) [facility] [address] [place] [address] Lymphocytes/100 WBC (Bld) 14.3 % Low 15.0-45.0 [facility] Comment on above: Performed By: #### L [id number] #### Medical Record Clerk: GRISELDA ROSALES ([id number]) [facility] [address] [place] [address] MCH (RBC) [Entitic mass] 30.4 pg Normal 26.0-34.0 [facility] Comment on above: Performed By: #### L [id number] #### Medical Record Clerk: GRISELDA ROSALES ([id number]) [facility] [address] [place] [address] MCHC 32.6 % Normal 30.5-36.0 [facility] Comment on above: Performed By: #### L [id number] #### Medical Record Clerk: GRISELDA ROSALES ([id number]) [facility] ([facility] [address] [place] [address] MCV (RBC) [Entitic vol] 93.3 fL Normal 77.0-99.0 [facility] Comment on above: Performed By: #### L [id number] #### Medical Record Clerk: GRISELDA ROSALES ([id number]) [facility] [address] [place] [address] Monocytes (Bld) [#/Vol] 0.4 10*3/uL Normal 0.0-0.9 [facility] Comment on above: Performed By: #### L [id number] #### Medical Record Clerk: GRISELDA HAYSADALGISA ([id number]) [facility] ([facility] [address] [place] [address] Monocytes/100 WBC (Bld) 8.4 % Normal 5.0-13.0 [facility] Comment on above: Performed By: #### L [id number] #### Medical Record Clerk: GRISELDA HAYSADALGISA ([id number]) [facility] [address] [place] [address] NEUTROPHILS ABSOLUTE 3.7 10*3/uL Normal 1.8-7.5 [facility] Comment on above: Performed By: #### L [id number] #### Medical Record Clerk: GRISELDA HAYSADALGISA ([id number]) [facility] [address] [place] [address] Neutrophils/100 WBC (Bld) 73.2 % Normal 38.0-82.0 [facility] Comment on above: Performed By: #### L [id number] #### Medical Record Clerk: GRISELDA ROSALES ([id number]) [facility] ([facility] [address] [place] [address] NRBC 0.0 /100 WBCs Normal 0.0-2.0 [facility] Comment on above: Performed By: #### L [id number] #### Medical Record Clerk: GRISELDA ROSALES ([id number]) [facility] [address] [place] [address] Platelet mean volume (Bld) [Entitic vol] 9.2 fL Normal 9.0-12.7 [facility] Comment on above: Result Comment: MPV is a calculated measurement using platelet volume ratio Performed By: #### L [id number] #### Medical Record Clerk: GRISELDA ROSALES ([id number]) [facility] [address] [place] [address] Platelets (Bld) [#/Vol] 188 10*3/uL Normal 140-440 [facility] Comment on above: Performed By: #### L [id number] #### Medical Record Clerk: GRISELDA ROSALES ([id number]) [facility] ([facility]) [address] [place] [address] RBC (Bld) [#/Vol] 4.50 10*6/uL Normal 3.80-5.20 [facility] Comment on above: Performed By: #### L [id number] #### Medical Record Clerk: GRISELDA ROSALES ([id number]) [facility] [address] [place] [address] WBC (Bld) [#/Vol] 5.1 10*3/uL Normal 3.6-10.7 [facility] Comment on above: Performed By: #### L [id number] #### Medical Record Clerk: GRISELDA ROSALES ([id number]) [facility] ([facility]) [address] [place] [address] Comprehensive metabolic 2000 panelOrdered By: Annie Call on 09-02-2023 Albumin [Mass/Vol] 3.3 g/dL 3.3 - 5.5 g/dL [facility] ALP [Catalytic activity/Vol] 75 U/L 42 - 141 U/L [facility] ALT [Catalytic activity/Vol] 16 U/L 10 - 47 U/L [facility] Anion gap [Moles/Vol] 8.00 mmol/L -4.00 - 12.00 mmol/L [facility] Anion gap [Moles/Vol] 8 mmol/L -4.00 - 12.00 mmol/L [facility] AST [Catalytic activity/Vol] 29 U/L 11 - 38 U/L [facility] Bilirubin [Mass/Vol] 0.6 mg/dL 0.2 - 1 .6 mg/dL [facility] Calcium [Mass/Vol] 9.3 mg/dL 8.0 - 10. 3 mg/dL [facility] Chloride [Moles/Vol] 108 mmol/L [facility] CO2 [Moles/Vol] 27 mmol/L [facility]/1.73 sq M.predicted MDRD (S/P/Bld) [Vol rate/Area] 76.0 mL/min/{1.73_m2} - PINF [facility] GFR/1.73 sq M.predicted MDRD (S/P/Bld) [Vol rate/Area] 76 mL/min/{1.73_m2} [facility] Glucose [Mass/Vol] 132 mg/dL High 73 - 118 mg/dL [facility] Interpretation and review of laboratory results Abnormal [facility] Potassium [Moles/Vol] 3.8 mmol/L [facility] Protein [Mass/Vol] 6.4 g/dL 6.4 - 8.1 g/dL [facility] Sodium [Moles/Vol] 143 mmol/L [facility] Urea nitrogen [Mass/Vol] 15 mg/dL 7 - 22 mg/dL [facility] Urea nitrogen/Creatinine [Mass ratio] 0.8 mg/dL 0.6 - 1.2 mg/dL [facility] Office Visiton 09-02-2023 Follow-up visit [id number] Madiha Perales 1945 F Date Provider Department Center 09/02/2023 [id number] ESCOBEDO [facility] ONC None Family History Problem Relation Age of Onset Breast cancer Mother Lung cancer Father Colon cancer Paternal Grandfather Family Status - Relation Status Age at Mother Father Paternal Grandfather Level of Service:[id number] ID OFFICE/OUTPATIENT ESTABLISHED MOD MDM 30 MIN Reason for Visit and Comments: Follow-up [551940] Normal [facility] Progress Noteon 09-02-2023 Progress Note Patient arrived for Q 3 week Kate from with physician. PIV inserted on 3rd [...] cancer, invasive ductal carcinoma grade 3. ER+ ID+ HER2+. cT1b N0 M0; pT1c N0 M0, diagnosed 01/28/23. - Patient is a 78 yo F who presented with an abnormal screening mammogram of the upper outer quadrant of the left breast on 11/27/22. Diagnostic imaging and ultrasound were performed on 01/21/2023: a 0.9 x 0.9 x 1 cm irregular mass in the left breast. 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 The patient underwent lumpectomy and sentinel node removal on 02/18/[address] Choi at [facility]: pathology revealed grade 3 invasive ductal carcinoma measuring 1.9 cm. There was focal DCIS and extensive lymphovascular invasion. Margins were negative for invasive and in situ component at greater than 2 mm. 6 axillary nodes were removed: 5 sentinel and 1 nonsentinel. All were negative.Pathological ly staged T1CN0. - she was referred to [facility] for medical and radiation oncology. Her [...] back pain Breast calcifications on mammogram Dementia ([facility]) Depression Eczema H/O colonoscopy Hemorrhoid Hx of rosacea Lower extremity edema MARCY (obstructive sleep apnea) The patient wears CPAP Parkinson disease Stroke ([facility]) 2009 Torn meniscus Uterine cancer ([facility]) ([facility]) 2005 Past Surgical History: Procedure [...] left breast in female, estrogen receptor positive ([facility]) ([facility]) 03/18/2023 Edema of both lower [...] calcifications on mammogram 07/24/2013 Cerebrovascular accident (CVA) ([facility]) 06/23/2009 Social History Tobacco Use [...] in the (more content not included)... Normal [facility] 81on 08-12-2023 81 RADIATION ONCOLOGY TREATMENT SUMMARY PATIENT: Madiha Perales DATE OF SERVICE: 08/12/2023 : 1945 AGE: 79 y.o. PRIMARY SITE AND HISTOPATHOLOGY: Left breast, grade 3 invasive ductal carcinoma, ER positive, ID positive, HER2 positive. STAGE: cT1b N0 M0, [...] the left breast. Biopsy was performed at [facility] on 01/28/2023. This revealed grade 3 invasive ductal carcinoma measuring at least 8 mm in dimension. ER positive at 100%, ID positive at 70% and HER2 positive at [...] A 1 month follow-up appointment was made. Jarrell Diego MD [facility] Department of Radiation Oncology is an Accredited Facility of the [employer] ([employer]). This document was [...] addressed to the provider for clarification. Normal [facility] CBC W Auto Differential pane l (Bld)Ordered By: Radha Rain on 08-12-2023 Basophils (Bld) [#/Vol] 0.0 10*3/uL 0.0 - 0.2 10*3/uL [facility] [facility] (Bld) [#/Vol] 0 10*3/uL 0.0 - 0.2 10*3/uL [facility] Basophils/100 WBC (Bld) 0.4 % 0.0 - 2.0 % [facility] Eosinophils (Bld) [#/Vol] 0.1 10*3/uL 0.0 - 0.5 10*3/uL [facility] Eosinophils/100 WBC (Bld) 2.1 % 1.0 - 6.0 % [facility] Erythrocyte distribution width (RBC) [Ratio] 14.0 % 11.5 - 14.5 % [facility] Erythrocyte distribution width (RBC) [Ratio] 14 % 11.5 - 14.5 % [facility] Hematocrit (Bld) [Volume fraction] 41.2 % 35.0 - 47.0 % [facility] Hemoglobin (Bld) [Mass/Vol] 13.6 g/dL 11.7 - 16.0 g/dL [facility] Immature granulocytes (Bld) [#/Vol] 0.0 10*3/uL NINF - 0.0 10*3/uL [facility] Immature granulocytes (Bld) [#/Vol] 0 10*3/uL NINF - 0.0 10*3/uL [facility] Immature granulocytes/100 WBC (Bld) 0.6 % High NINF - 0.0 % [facility] Interpretation and review of laboratory results Abnormal [facility] Lymphocytes (Bld) [#/Vol] 0.9 10*3/uL Low 1.0 - 4.3 10*3/uL [facility] Lymphocytes/100 WBC (Bld) 12.6 % Low 20.0 - 40.0 % [facility] MCH (RBC) [Entitic mass] 30.7 pg 26.0 - 34.0 pg [facility] MCHC (RBC) [Mass/Vol] 33.0 % 32.0 - 36.0 % [facility] MCHC (RBC) [Mass/Vol] 33 % 32.0 - 36.0 % [facility] MCV (RBC) [Entitic vol] 93.0 fL 80.0 - 98.0 fL [facility] MCV (RBC) [Entitic vol] 93 fL 80.0 - 98.0 fL [facility] Monocytes (Bld) [#/Vol] 0.5 10*3/uL 0.0 - 0.8 10*3/uL [facility] Monocytes/100 WBC (Bld) 6.7 % 2.0 - 10.0 % [facility] Neutrophils (Bld) [#/Vol] 5.2 10*3/uL 1.8 - 7.0 10*3/uL [facility] Neutrophils/100 WBC (Bld) 77.6 % 40.0 - 80.0 % [facility] Platelet mean volume (Bld) [Entitic vol] 9.9 fL 7.4 - 12.4 fL [facility] Comment on above: MPV is a calculated measurement using platelet volume ratio Platelets (Bld) [#/Vol] 224 10*3/uL 140 - 440 10*3/uL [facility] RBC (Bld) [#/Vol] 4.43 10*6/uL 3.8 - 5.20 10*6/uL [facility] WBC (Bld) [#/Vol] 6.7 10*3/uL 3.6 - 10.7 10*3/uL [facility] CBC WITH AUTO DIFFERENTIALon 08-12-2023 Basophils (Bld) [#/Vol] 0.0 10*3/uL Normal 0.0-0.2 [facility] Comment on above: Performed By: #### L [id number] ####Medical Record Clerk: GRISELDA ROSALES ([phone])[facility] ([facility])[address] [place] [address] Basophils/100 WBC (Bld) 0.4 % Normal 0.0-2.0 S [facility] Comment on above: Performed By: #### L [id number] ####Medical Record Clerk: GRISELDA ROSALES ([phone])[facility] ([facility] [place] [address] Eosinophils (Bld) [#/Vol] 0.1 10*3/uL Normal 0.0-0.5 [facility] Comment on above: Performed By: #### L [id number] ####Medical Record Clerk: GRISELDA ROSALES ([phone])[facility] [place] [address] Eosinophils/100 WBC (Bld) 2.1 % Normal 1.0-6.0 [facility] Comment on above: Performed By: #### L [id number] ####Medical Record Clerk: GRISELDA SIMMONSTigistADALGISA ([phone])[facility] ([facility])[address] [place] [address] Erythrocyte distribution width (RBC) [Ratio] 14.0 % Normal 11.5-14.5 [facility] Comment on above: Performed By: #### L [id number] ####Medical Record Clerk: GRISELDA SIMMONSJAKE ([phone])[facility] ([facility])[address] [place] [address] ERYTHROCYTE MEAN CORPUSCULAR HEMOGLOBIN CONCENTRATION (G/DL) BY AUTOMATED 33.0 % Normal 32.0-36.0 [facility] Comment on above: Performed By: #### L [id number] ####Medical Record Clerk: GRISELDA SIMMONSAUSTINADALGISA ([phone])[facility] ([facility])[address] [place] [address] Hematocrit (Bld) [Volume fraction] 41.2 % Normal 35.0-47.0 [facility] Comment on above: Performed By: #### L [id number] ####Medical Record Clerk: GRISELDA HAYSADALGISA ([phone])[facility] ([facility])[address] [place] [address] Hemoglobin (Bld) [Mass/Vol] 13.6 g/dL Normal 11.7-16.0 [facility] Comment on above: Performed By: #### L [id number] ####Medical Record Clerk: GRISELDA HAYSADALGISA ([phone])[facility] ([facility])[address] [place] [address] IMMATURE GRANS (10*3/UL) IN BLOOD BY AUTOMATED COUNT 0.0 10*3/uL Normal <=0.0 [facility] Comment on above: Performed By: #### L [id number] ####Medical Record Clerk: GRISELDA ROSALES ([phone])[facility] ([facility])[address] [place] [address] IMMATURE GRANS/100 LEUKOCYTES IN BLOOD BY AUTOMATED COUNT 0.6 % High <=0.0 [facility] Comment on above: Performed By: #### L [id number] ####Medical Record Clerk: GRIESLDA ROSALES ([phone])[facility] ([facility])[address] [place] [address] Lymphocytes (Bld) [#/Vol] 0.9 10*3/uL Low 1.0-4.3 [facility] Comment on above: Performed By: #### L [id number] ####Medical Record Clerk: GRISELDA HAYSADALGISA ([phone])[facility] ([facility])[address] [place] [address] Lymphocytes/100 WBC (Bld) 12.6 % Low 20.0-40.0 [facility] Comment on above: Performed By: #### L [id number] ####Medical Record Clerk: GRISELDA ROSALES ([phone])[facility] ([facility])[address] [place] [address] MCH (RBC) [Entitic mass] 30.7 pg Normal 26.0-34.0 [facility] Comment on above: Performed By: #### L [id number] ####Medical Record Clerk: GRISELDA ROSALES ([phone])[facility] ([facility])[address] [place] [address] MCV (RBC) [Entitic vol] 93.0 fL Normal 80.0-98.0 [facility] Comment on above: Performed By: #### L [id number] ####Medical Record Clerk: GRISELDA ROSAELS ([phone])[facility] ([facility])[address] [place] [address] Monocytes (Bld) [#/Vol] 0.5 10*3/uL Normal 0.0-0.8 [facility] Comment on above: Performed By: #### L [id number] ####Medical Record Clerk: GRISELDA ROSALES ([phone])[facility] [place] [address] Monocytes/100 WBC (Bld) 6.7 % Normal 2.0-10.0 [facility] Comment on above: Performed By: #### L [id number] ####Medical Record Clerk: GRISELDA ROSALES ([phone])[facility] ([facility])[address] [place] [address] Neutrophils (Bld) [#/Vol] 5.2 10*3/uL Normal 1.8-7.0 [facility] Comment on above: Performed By: #### L [id number] ####Medical Record Clerk: GRISELDA ROSALES ([phone])[facility])[address] [place] [address] Neutrophils/100 WBC (Bld) 77.6 % Normal 40.0-80.0 [facility] Comment on above: Performed By: #### L [id number] ####Medical Record Clerk: GRISELDA ROSALES ([phone])[facility])[address] [place] [address] Platelet mean volume (Bld) [Entitic vol] 9.9 fL Normal 7.4-12.4 [facility] Comment on above: Result Comment: MPV is a calculated measurement using platelet volume ratio Performed By: #### L [id number] ####Medical Record Clerk: GRISELDA ROSALES ([phone])[facility])[address] [place] [address] Platelets (Bld) [#/Vol] 224 10*3/uL Normal 140-440 [facility] Comment on above: Performed By: #### L [id number] ####Medical Record Clerk: GRISELDA ROSALES ([id number])[facility])[address] [place] [address] RBC (Bld) [#/Vol] 4.43 10*6/uL Normal 3.8-5.20 [facility] Comment on above: Performed By: #### L [id number] ####Medical Record Clerk: GRISELDA ROSALES ([phone])[facility] ([facility])[address] [place] [address] WBC (Bld) [#/Vol] 6.7 10*3/uL Normal 3.6-10.7 [facility] Comment on above: Performed By: #### L [id number] ####Medical Record Clerk: GRISELDA ROSALES ([phone])[facility] [place] [address] COMPREHENSIVE METABOLIC PANE L, WHOLE BLOODon 08-12-2023 Albumin [Mass/Vol] 3.3 g/dL Normal 3.3-5.1 [facility] Comment on above: Performed By: #### L [id number] ####Medical Record Clerk: GRISELDA ROSALES ([id number])[facility])[address] [place] [address] ALP [Catalytic activity/Vol] 77 U/L Normal 28-108 [facility] Comment on above: Performed By: #### L [id number] ####Medical Record Clerk: GRISELDA ROSALES ([id number])[facility] [place] [address] ALT [Catalytic activity/Vol] 29 U/L Normal 14-54 [facility] Comment on above: Performed By: #### L [id number] ####Medical Record Clerk: GRISELDA ROSALES ([phone])[facility])[address] [place] [address] ANION GAP, WHOLE BLOOD-ANIPI 4.00 mmol/L Normal 3.00-13.00 [facility] Comment on above: Performed By: #### L [id number] ####Medical Record Clerk: GRISELDA ROSALES ([phone])[facility])[address] [place] [address] AST [Catalytic activity/Vol] 38 U/L Normal 15-41 [facility] Comment on above: Performed By: #### L [id number] ####Medical Record Clerk: GRISELDA ROSALES ([id number])[facility] ([facility] [place] [address] [facility] Bilirubin [Mass/Vol] 0.6 mg/dL Normal 0.0-1.3 [facility] Comment on above: Performed By: #### L [id number] ####Medical Record Clerk: GRISELDA ROSALES ([id number])[facility] ([facility])[address] [place] [address] Calcium [Mass/Vol] 9.0 mg/dL Normal 8.1-10.1 [facility] Comment on above: Performed By: #### L [id number] ####Medical Record Clerk: GRISELDA ROSALES ([id number])[facility] ([facility])[address] [place] [address] Chloride [Moles/Vol] 108 mmol/L Normal 98-114 [facility] Comment on above: Performed By: #### L [id number] ####Medical Record Clerk: GRISELDA ROSALES ([id number])[facility] ([facility])[address] [place] [address] CO2 [Moles/Vol] 28 mmol/L Normal 21-29 [facility] Comment on above: Performed By: #### L [id number] ####Medical Record Clerk: GRISELDA ROSALES ([phone])[facility] ([facility])[address] [place] [address] Creatinine [Mass/Vol] 0.7 mg/dL Normal 0.6-1.4 [facility] Comment on above: Performed By: #### L [id number] ####Medical Record Clerk: GRISELDA ROSALES ([id number])[facility] ([facility])[address] [place] [address] EGFR, WHOLE BLOOD-JOBY 89.2 mL/min/1.73m*2 Normal >60.0 [facility] Comment on above: Result Comment: Calc ulation based on the Chronic Kidney Disease Epidemiology Collaboration (CKD-EPI) equation refit without adjustment for race Performed By: #### L [id number] ####Medical Record Clerk: GRISELDA ROSALES ([id number])[facility] [place] [address] Glucose [Mass/Vol] 128 mg/dL High 67-100 [facility] Comment on above: Performed By: #### L [id number] ####Medical Record Clerk: GRISELDA ROSALES ([phone])[facility] [place] [address] Potassium [Moles/Vol] 4.5 mmol/L Normal 3.4-5.1 [facility] Comment on above: Performed By: #### L [id number] ####Medical Record Clerk: GRISELDA ROSALES ([id number])[facility] ([facility])[address] [place] [address] Protein [Mass/Vol] 6.5 g/dL Normal 6.0-8.1 [facility] Comment on above: Performed By: #### L [id number] ####Medical Record Clerk: GRISELDA ROSALES ([id number])[facility] ([facility])[address] [place] [address] Sodium [Moles/Vol] 140 mmol/L Normal 133-145 [facility] Comment on above: Performed By: #### L [id number] ####Medical Record Clerk: GRISELDA ROSALES ([phone])[facility] ([facility])[address] [place] [address] Urea nitrogen [Mass/Vol] 17 mg/dL Normal 4-22 [facility] Comment on above: Performed By: #### L [id number] ####Medical Record Clerk: GRISELDA ROSALES ([id number])[facility] ([facility])[address] [place] [address] Progress Noteon 08-12-2023 Progress Note Patient arrived [...] 0.2 10*3/uL [facility] Basophils/100 WBC (Bld) 0.8 % 0.0 - 2.0 % [facility] Eosinophils (Bld) [#/Vol] 0.2 10*3/uL 0.0 - 0.5 10*3/uL [facility] Eosinophils/100 WBC (Bld) 3.7 % 1.0 - 6.0 % [facility] Erythrocyte distribution width (RBC) [Ratio] 14.3 % 11.5 - 14.5 % [facility] Hematocrit (Bld) [Volume fraction] 41.6 % 35.0 - 47.0 % [facility] Hemoglobin (Bld) [Mass/Vol] 14.0 g/dL 11.7 - 16.0 g/dL [facility] Immature granulocytes (Bld) [#/Vol] 0.0 10*3/uL NINF - 0.0 10*3/uL [facility] Immature granulocytes/100 WBC (Bld) 0.3 % High NINF - 0.0 % [facility] Interpretation and review of laboratory results Abnormal [facility] Lymphocytes (Bld) [#/Vol] 0.8 10*3/uL Low 1.0 - 4.3 10*3/uL [facility] Lymphocytes/100 WBC (Bld) 12.3 % Low 20.0 - 40.0 % [facility] MCH (RBC) [Entitic mass] 31.3 pg 26.0 - 34.0 pg [facility] MCHC (RBC) [Mass/Vol] 33.7 % 32.0 - 36.0 % [facility] MCV (RBC) [Entitic vol] 93.1 fL 80.0 - 98.0 fL [facility] Monocytes (Bld) [#/Vol] 0.5 10*3/uL 0.0 - 0.8 10*3/uL [facility] Monocytes/100 WBC (Bld) 8.3 % 2.0 - 10.0 % [facility] Neutrophils (Bld) [#/Vol] 4.9 10*3/uL 1.8 - 7.0 10*3/uL [facility] Neutrophils/100 WBC (Bld) 74.6 % 40.0 - 80.0 % [facility] Platelet mean volume (Bld) [Entitic vol] 9.3 fL 7.4 - 12.4 fL [facility] Comment on above: MPV is a calculated measurement using platelet volume ratio Platelets (Bld) [#/Vol] 205 10*3/uL 140 - 440 10*3/uL [facility] RBC (Bld) [#/Vol] 4.47 10*6/uL 3.8 - 5.20 10*6/uL [facility] WBC (Bld) [#/Vol] 6.5 10*3/uL 3.6 - 10.7 10*3/uL [facility] US THYROIDon 07-31-2023 US THYROID Interpreted By: Kayode Beal, STUDY: US THYROID; 07/31/2023 1:58 pm INDICATION: Signs/Symptoms:LEFT SIDETHYROID NODULES, PRESENT FOR YEARS, SEEN AGAIN INCIDENTALLY ON CT OF CHEST. COMPARISON: None. ACCESSION NUMBER(S): [id number] ORDERING CLINICIAN: MARIE DEVI TECHNIQUE: Multiple ultrasonographic [...] are based on the recommendations of the [employer] TI-RADS grading system. ACR [...] Kayode Beal 08/01/2023 8:10 PM Dictation workstation: [id number] [facility] US Thyroid glandon These images are not [...] 2.2 % 1.0 - 6.0 % [facility] Erythrocyte distribution width (RBC) [Ratio] 15.1 % High 11.5 - 14.5 % [facility] Hematocrit (Bld) [Volume fraction] 40.5 % 35.0 [...] [#/Vol] 1.1 10*3/uL 1.0 - 4.3 10*3/uL [facility] Lymphocytes/100 WBC (Bld) 18.7 % Low 20.0 - 40.0 % [facility] MCH (RBC) [Entitic mass] 31.1 pg 26.0 - 34.0 pg [facility] MCHC (RBC) [Mass/Vol] 33.1 % 32.0 - 36.0 % [facility] MCV (RBC) [Entitic vol] 94.0 fL 80.0 - 98.0 fL [facility] MCV (RBC) [Entitic vol] 94 fL 80.0 - 98.0 fL [facility] Monocytes (Bld) [#/Vol] 0.4 10*3/uL 0.0 - 0.8 10*3/uL [facility] Monocytes/100 WBC (Bld) 6.4 % 2.0 - 10.0 % [facility] Neutrophils (Bld) [#/Vol] 4.3 10*3/uL 1.8 - 7.0 10*3/uL [facility] Neutrophils/100 WBC (Bld) 71.8 % 40.0 - 80.0 % [facility] Platelet mean volume (Bld) [Entitic vol] 9.3 fL 7.4 - 12.4 fL [facility] Comment on above: MPV is a calculated measurement using platelet volume ratio Platelets (Bld) [#/Vol] 229 10*3/uL 140 - 440 10*3/uL [facility] RBC (Bld) [#/Vol] 4.31 10*6/uL 3.8 - 5.20 10*6/uL [facility] WBC (Bld) [#/Vol] 5.9 10*3/uL 3.6 - 10.7 10*3/uL [facility] Comprehensive metabolic 1998 panelon 07-15-2023 Albumin [Mass/Vol] 4.0 g/dL 3.5 - 5.0 g/dL [facility] Albumin [Mass/Vol] 4 g/dL 3.5 - 5.0 g/dL [facility] ALP [Catalytic activity/Vol] 80 U/L 38 - 126 U/L [facility] ALT [Catalytic activity/Vol] 14 U/L 0 - 34 U/L [facility] Anion gap [Moles/Vol] 6 mmol/L 3 - 13 mmol/L [facility] AST [Catalytic activity/Vol] 43 U/L 15 - 46 U/L [facility] Bilirubin [Mass/Vol] 0.7 mg/dL 0.2 - 1 .3 mg/dL [facility] Calcium [Mass/Vol] 8.8 mg/dL 8.4 - 10. 4 mg/dL [facility] Chloride [Moles/Vol] 106 mmol/L 98 - 10 7 mmol/L [facility] CO2 [Moles/Vol] 26 mmol/L 22 - 30 mmol/L [facility] Creatinine [Mass/Vol] 0.56 mg/dL 0.52 - 1.04 mg/dL [facility] GFR/1.73 sq M.predicted MDRD (S/P/Bld) [Vol rate/Area] - PINF [facility] Comment on above: Calculation based on the Chronic Kidney Disease Epidemiology Collaboration (CKD-EPI) equation refit without adjustment for race Glucose [Mass/Vol] 160 mg/dL High 70 - 100 mg/dL [facility] Interpretation and review of laboratory results Abnormal [facility] Potassium [Moles/Vol] 4.0 mmol/L 3.5 - 5.1 mmol/L [facility] Potassium [Moles/Vol] 4 mmol/L 3.5 - 5.1 mmol/L [facility] Protein [Mass/Vol] 7.1 g/dL 6.3 - 8.2 g/dL [facility] Sodium [Moles/Vol] 138 mmol/L 135 - 145 mmol/L [facility] Urea nitrogen [Mass/Vol] 19 mg/dL High 7 - 17 mg/dL [facility] US Heart TransthoracicOrdere d By: Philippe Hoskins on 06-26-2023 Aortic Root 3.2 cm [facility] Work Phone: AR Max Velocity PISA 3.6 m/s [facility] Work Phone: AR PHT 443.0 ms [facility] Work Phone: Ascending Aorta 3.4 cm [facility] Work Phone: AV Area by Peak Velocity 2.6 cm2 [facility] Work Phone: AV Area by VTI 2.6 cm2 [facility] Work Phone: [phone] AV AT 74.22 ms [facility] Work Phone: [phone] AV Mean Gradient 3 mmHg [facility] Work Phone: AV Mean Velocity 0.8 m/s [facility] Work Phone: AV Peak Gradient 7 mmHg [facility] Work Phone: [phone] AV Peak Velocity 1.4 m/s [facility] Work Phone: AV Velocity Ratio 0.71 [facility] Work Phone: AV VTI 24.0 cm [facility] Work Phone: E/E' Lateral 8.50 [facility] Work Phone: E/E' Ratio (Averaged) 8.50 [facility] Work Phone: E/E' Septal 8.50 [facility] Work Phone: [phone] EF BP 62 % 55 - 100 % [facility] Work Phone: Fractional Shortening 2D 33 % 28 - 44 % [facility] Work Phone: Global Longitudinal Strain -19.4 % [facility] Work Phone: Global Longitudinal Strain -21.0 % [facility] Work Phone: Global Longitudinal Strain -13.9 % [facility] Work Phone: Global Longitudinal Strain -18.1 % [facility] Work Phone: [phone] Interpretation and review of laboratory results Abnormal [facility] Work Phone: [phone] IVC Diameter 1.3 cm [facility] Work Phone: IVSd 1.1 cm Abnormal 0.6 - 0.9 cm [facility] Work Phone: LA Diameter 3.2 cm [facility] Work Phone: [phone] LA Volume 2C 63 mL Abnormal 22 - 52 mL [facility] Work Phone: LA Volume 4C 51 mL 22 - 52 mL [facility] Work Phone: LA Volume A/L 61 mL [facility] [employer] Work Phone: LA Volume BP 58 mL Abnormal 22 - 52 mL [facility] Work Phone: LA/AO Root Ratio 1.00 [facility] Work Phone: LV E' Lateral Velocity 6 cm/s [facility] Work Phone: LV E' Septal Velocity 6 cm/s [facility] Work Phone: LV EDV A4C 78 mL [facility] Work Phone: LV Ejection Fraction A4C 62 % [facility] Work Phone: LV ESV A4C 30 mL [facility] Work Phone: LV Mass 2D 188.1 g Abnormal 67 - 162 g [facility] Work Phone: LV RWT Ratio 0.41 [facility] Work Phone: LVIDd 4.9 cm 3.9 - 5.3 cm [facility] Work Phone: LVIDs 3.3 cm [facility] Work Phone: LVOT Area 3.5 cm2 [facility] [employer] Work Phone: LVOT Cardiac Output 5.6 liter/mi nut e [facility] [employer] Work Phone: LVOT Diameter 2.1 cm [facility] [employer] Work Phone: LVOT Mean Gradient 2 mmHg [facility] [employer] Work Phone: LVOT Peak Gradient 4 mmHg [facility] [employer] Work Phone: LVOT Peak Velocity 1.0 m/s [facility] [employer] Work Phone: LVOT SV 63.0 ml [facility] [employer] Work Phone: LVOT VTI 18.2 cm [facility] [employer] Work Phone: LVOT:AV VTI Index 0.76 [facility] Work Phone: LVPWd 1.0 cm Abnormal 0.6 - 0.9 cm [facility] Work Phone: MV A Velocity 0.73 m/s [facility] Work Phone: [phone] MV E Velocity 0.51 m/s [facility] Work Phone: [phone] MV E Wave Deceleration Time 187.8 ms [facility] [employer] Work Phone: [phone] MV E/A 0.70 [facility] Work Phone: RA Area 4C 52.0 mL [facility] Work Phone: RA Area 4C 50.1 mL [facility] Work Phone: [phone] RV Basal Dimension 3.5 cm [facility] Work Phone: RV Free [place] Peak S' 23 cm/s [facility] Work Phone: [phone] RV Mid Dimension 2.7 cm [facility] Work Phone: TAPSE 2.6 cm 1.7 cm [facility] [employer] Work Phone: [phone] [facility] [employer] Work Phone: [phone] US Heart Transthoracicon Left Ventricle: Left ventricle [...] (Bld) 3.8 % 1.0 - 6.0 % [employer] Erythrocyte distribution width (RBC) [Ratio] 16.3 % High 11.5 - 14.5 % [facility] Hematocrit (Bld) [Volume fraction] 39.4 % 35.0 - 47.0 % [facility] [employer] Hemoglobin (Bld) [Mass/Vol] 12.9 g/dL 11.7 - 16.0 g/dL [facility] Immature granulocytes (Bld) [#/Vol] 0.0 10*3/uL NINF - 0.0 10*3/uL [facility] Immature granulocytes (Bld) [#/Vol] 0 10*3/uL NINF - 0.0 10*3/uL [facility] Immature granulocytes/100 WBC (Bld) 0.4 % High NINF - 0.0 % [employer] [facility] Interpretation and review of laboratory results Abnormal [facility] Lymphocytes (Bld) [#/Vol] 1.2 10*3/uL 1.0 - 4.3 10*3/uL [facility] Lymphocytes/100 WBC (Bld) 17.2 % Low 20.0 - 40.0 % [employer] [facility] MCH (RBC) [Entitic mass] 31.2 pg 26.0 - 34.0 pg [facility] MCHC (RBC) [Mass/Vol] 32.7 % 32.0 - 36.0 % [facility] MCV (RBC) [Entitic vol] 95.2 fL 80.0 - 98.0 fL [facility] Monocytes (Bld) [#/Vol] 0.5 10*3/uL 0.0 - 0.8 10*3/uL [facility] Monocytes/100 WBC (Bld) 7.4 % 2.0 - 10.0 % [facility] Neutrophils (Bld) [#/Vol] 4.9 10*3/uL 1.8 - 7.0 10*3/uL [facility] Neutrophils/100 WBC (Bld) 70.6 % 40.0 - 80.0 % [facility] Platelet mean volume (Bld) [Entitic vol] 9.5 fL 7.4 - 12.4 fL [facility] Comment on above: MPV is a calculated measurement using platelet volume ratio Platelets (Bld) [#/Vol] 204 10*3/uL 140 - 440 10*3/uL [facility] RBC (Bld) [#/Vol] 4.14 10*6/uL 3.8 - 5.20 10*6/uL [facility] WBC (Bld) [#/Vol] 6.9 10*3/uL 3.6 - 10.7 10*3/uL [facility] Comprehensive metabolic 1998 panelon 06-24-2023 Albumin [Mass/Vol] 3.9 g/dL 3.5 - 5.0 g/dL [facility] ALP [Catalytic activity/Vol] 110 U/L 38 - 126 U/L [facility] ALT [Catalytic activity/Vol] 37 U/L High 0 - 34 U/L [facility] Anion gap [Moles/Vol] 6 mmol/L 3 - 13 mmol/L [facility] AST [Catalytic activity/Vol] 40 U/L 15 - 46 U/L [facility] Bilirubin [Mass/Vol] 0.6 mg/dL 0.2 - 1 .3 mg/dL [facility] Calcium [Mass/Vol] 8.9 mg/dL 8.4 - 10. 4 mg/dL [facility] Chloride [Moles/Vol] 107 mmol/L 98 - 10 7 mmol/L [facility] CO2 [Moles/Vol] 25 mmol/L 22 - 30 mmol/L [facility] Creatinine [Mass/Vol] 0.58 mg/dL 0.52 - 1.04 mg/dL [facility] GFR/1.73 sq M.predicted MDRD (S/P/Bld) [Vol rate/Area] - PINF [facility] Comment on above: Calculation based on the Chronic Kidney Disease Epidemiology Collaboration (CKD-EPI) equation refit without adjustment for race Glucose [Mass/Vol] 136 mg/dL High 70 - 100 mg/dL [facility] Interpretation and review of laboratory results Abnormal [facility] Potassium [Moles/Vol] 3.9 mmol/L 3.5 - 5.1 mmol/L [facility] [employer] Protein [Mass/Vol] 7.0 g/dL 6.3 - 8.2 g/dL [facility] Protein [Mass/Vol] 7 g/dL 6.3 - 8.2 g/dL [facility] Sodium [Moles/Vol] 139 mmol/L 135 - 145 mmol/L [facility] Urea nitrogen [Mass/Vol] 18 mg/dL High 7 - 17 mg/dL [facility] CBC W Auto Differential pane l (Bld)Ordered By: Radha Rain on 06-03-2023 Basophils (Bld) [#/Vol] 0.1 10*3/uL 0.0 - 0.2 10*3/uL [facility] Basophils/100 WBC (Bld) 0.9 % 0.0 - 2.0 % [facility] Eosinophils (Bld) [#/Vol] 0.1 10*3/uL 0.0 - 0.5 10*3/uL [facility] Eosinophils/100 WBC (Bld) 0.9 % Low 1.0 - 6.0 % [facility] Erythrocyte distribution width (RBC) [Ratio] 15.8 % High 11.5 - 14.5 % [facility] Hematocrit (Bld) [Volume fraction] 38.2 % 35.0 - 47.0 % [facility] Hemoglobin (Bld) [Mass/Vol] 12.9 g/dL 11.7 - 16.0 g/dL [facility] Immature granulocytes (Bld) [#/Vol] 0.1 10*3/uL High NINF - 0.0 10*3/uL [facility] Immature granulocytes/100 WBC (Bld) 1.9 % High NINF - 0.0 % [facility] Interpretation and review of laboratory results Abnormal [facility] Lymphocytes (Bld) [#/Vol] 0.4 10*3/uL Low 1.0 - 4.3 10*3/uL [facility] Lymphocytes/100 WBC (Bld) 6.2 % Low 20.0 - 40.0 % [facility] MCH (RBC) [Entitic mass] 31.2 pg 26.0 - 34.0 pg [facility] MCHC (RBC) [Mass/Vol] 33.8 % 32.0 - 36.0 % [facility] MCV (RBC) [Entitic vol] 92.5 fL 80.0 - 98.0 fL [facility] Monocytes (Bld) [#/Vol] 0.5 10*3/uL 0.0 - 0.8 10*3/uL [facility] Monocytes/100 WBC (Bld) 6.7 % 2.0 - 10.0 % [facility] Neutrophils (Bld) [#/Vol] 5.8 10*3/uL 1.8 - 7.0 10*3/uL [facility] Neutrophils/100 WBC (Bld) 83.4 % High 40.0 - 80.0 % [facility] Platelet mean volume (Bld) [Entitic vol] 9.6 fL 7.4 - 12.4 fL [facility] Comment on above: MPV is a calculated measurement using platelet volume ratio Platelets (Bld) [#/Vol] 251 10*3/uL 140 - 440 10*3/uL [facility] RBC (Bld) [#/Vol] 4.13 10*6/uL 3.8 - 5.20 10*6/uL [facility] WBC (Bld) [#/Vol] 6.9 10*3/uL 3.6 - 10.7 10*3/uL [facility] Comprehensive metabolic 1998 panelon 06-03-2023 Albumin [Mass/Vol] 3.9 g/dL 3.5 - 5.0 g/dL [facility] ALP [Catalytic activity/Vol] 79 U/L 38 - 126 U/L [facility] ALT [Catalytic activity/Vol] 24 U/L 0 - 34 U/L [facility] Anion gap [Moles/Vol] 12 mmol/L 3 - 13 mmol/L [facility] AST [Catalytic activity/Vol] 45 U/L 15 - 46 U/L [facility] Bilirubin [Mass/Vol] 0.8 mg/dL 0.2 - 1 .3 mg/dL [facility] Calcium [Mass/Vol] 8.8 mg/dL 8.4 - 10. 4 mg/dL [facility] Chloride [Moles/Vol] 100 mmol/L 98 - 10 7 mmol/L [facility] CO2 [Moles/Vol] 22 mmol/L 22 - 30 mmol/L [facility] Creatinine [Mass/Vol] 0.74 mg/dL 0.52 - 1.04 mg/dL [facility] GFR/1.73 sq M.predicted MDRD (S/P/Bld) [Vol rate/Area] 83.4 mL/min/{1.73_m2} - PINF [facility] Comment on above: Calculation based on the Chronic Kidney Disease Epidemiology Collaboration (CKD-EPI) equation refit without adjustment for race Glucose [Mass/Vol] 146 mg/dL High 70 - 100 mg/dL [facility] Interpretation and review of laboratory results Abnormal [facility] Potassium [Moles/Vol] 4.5 mmol/L 3.5 - 5.1 mmol/L [facility] Protein [Mass/Vol] 7.0 g/dL 6.3 - 8.2 g/dL [facility] Sodium [Moles/Vol] 134 mmol/L Low 135 - 145 mmol/L [facility] Urea nitrogen [Mass/Vol] 12 mg/dL 7 - 17 mg/dL [facility] Urinalysis complete panel (U )on 06-03-2023 Bacteria LM.HPF (Urine sed) [#/Area] Moderate Abnormal Negative /HPF [facility] Bilirubin Ql (U) Negative Negative mg/dL [facility] Clarity (U) Clear Clear [facility] Color (U) Yellow Lt. Yellow [facility] Epithelial cells.squamous LM.HPF (Urine sed) [#/Area] 0-2 [facility] h Glucose Ql (U) Normal Normal (<70) mg/dL [facility] Hemoglobin Ql (U) 0.06 mg/dL Abnormal Negative [facility] Interpretation and review of laboratory results Abnormal [facility] Ketones (U) [Mass/Vol] Negative Negat susy mg/dL [facility] Leukocyte esterase Test strip Ql (U) 500 Abnormal Negative Jose/uL [facility] Nitrite Ql (U) Negative Negative [facility] th Non-Squamous Epithalial Cells, Urine 0-2 Abnormal Negative /HPF [facility] pH (U) 7.0 [pH] 5.0 - 8.0 pH [facility] Protein (U) [Mass/Vol] Negative Negat susy mg/dL [facility] RBC LM.HPF (Urine sed) [#/Area] 3-5 Abnormal [facility] Specific gravity (U) [Rel density] 1.010 1.005 - 1.030 [facility] Urobilinogen (U) [Mass/Vol] Normal Normal (0-1) mg/dL [facility] Volume, [facility] 8-[facility] (Urine sed) [#/Area] 6-10 Abnormal [facility] CBC W Auto Differential pane l (Bld)Ordered By: Radha Rain on 05-27-2023 Basophils (Bld) [#/Vol] 0.0 10*3/uL 0.0 - 0.2 10*3/uL [facility] Basophils/100 WBC (Bld) 0.8 % 0.0 - 2.0 % [facility] Eosinophils (Bld) [#/Vol] 0.1 10*3/uL 0.0 - 0.5 10*3/uL [facility] Eosinophils/100 WBC (Bld) 1.7 % 1.0 - 6.0 % [facility] Erythrocyte distribution width (RBC) [Ratio] 15.8 % High 11.5 - 14.5 % [facility] Hematocrit (Bld) [Volume fraction] 38.5 % 35.0 - 47.0 % [facility] Hemoglobin (Bld) [Mass/Vol] 13.1 g/dL 11.7 - 16.0 g/dL [facility] Immature granulocytes (Bld) [#/Vol] 0.1 10*3/uL High NINF - 0.0 10*3/uL [facility] Immature granulocytes/100 WBC (Bld) 2.1 % High NINF - 0.0 % [facility] Interpretation and review of laboratory results Abnormal [facility] Lymphocytes (Bld) [#/Vol] 0.7 10*3/uL Low 1.0 - 4.3 10*3/uL [facility] Lymphocytes/100 WBC (Bld) 12.7 % Low 20.0 - 40.0 % [facility] MCH (RBC) [Entitic mass] 31.6 pg 26.0 - 34.0 pg [facility] MCHC (RBC) [Mass/Vol] 34.0 % 32.0 - 36.0 % [facility] MCV (RBC) [Entitic vol] 92.8 fL 80.0 - 98.0 fL [facility] Monocytes (Bld) [#/Vol] 0.4 10*3/uL 0.0 - 0.8 10*3/uL [facility] Monocytes/100 WBC (Bld) 7.8 % 2.0 - 10.0 % [facility] Neutrophils (Bld) [#/Vol] 4.0 10*3/uL 1.8 - 7.0 10*3/uL [facility] Neutrophils/100 WBC (Bld) 74.9 % 40.0 - 80.0 % [facility] Platelet mean volume (Bld) [Entitic vol] 9.5 fL 7.4 - 12.4 fL [facility] Comment on above: MPV is a calculated measurement using platelet volume ratio Platelets (Bld) [#/Vol] 226 10*3/uL 140 - 440 10*3/uL [facility] RBC (Bld) [#/Vol] 4.15 10*6/uL 3.8 - 5.20 10*6/uL [facility] WBC (Bld) [#/Vol] 5.3 10*3/uL 3.6 - 10.7 10*3/uL [facility] Comprehensive metabolic 1998 panelon 05-27-2023 Albumin [Mass/Vol] 4.0 g/dL 3.5 - 5.0 g/dL [facility] ALP [Catalytic activity/Vol] 81 U/L 38 - 126 U/L [facility] ALT [Catalytic activity/Vol] 20 U/L 0 - 34 U/L [facility] Anion gap [Moles/Vol] 9 mmol/L 3 - 13 mmol/L [facility] AST [Catalytic activity/Vol] 33 U/L 15 - 46 U/L [facility] Bilirubin [Mass/Vol] 0.6 mg/dL 0.2 - 1 .3 mg/dL [facility] Calcium [Mass/Vol] 8.8 mg/dL 8.4 - 10. 4 mg/dL [facility] Chloride [Moles/Vol] 103 mmol/L 98 - 10 7 mmol/L [facility] CO2 [Moles/Vol] 24 mmol/L 22 - 30 mmol/L [facility] Creatinine [Mass/Vol] 0.54 mg/dL 0.52 - 1.04 mg/dL [facility] GFR/1.73 sq M.predicted MDRD (S/P/Bld) [Vol rate/Area] - PINF [facility] Comment on above: Calculation based on the Chronic Kidney Disease Epidemiology Collaboration (CKD-EPI) equation refit without adjustment for race Glucose [Mass/Vol] 131 mg/dL High 70 - 100 mg/dL [facility] Interpretation and review of laboratory results Abnormal [facility] Potassium [Moles/Vol] 3.7 mmol/L 3.5 - 5.1 mmol/L [facility] Protein [Mass/Vol] 6.7 g/dL 6.3 - 8.2 g/dL [facility] Sodium [Moles/Vol] 135 mmol/L 135 - 145 mmol/L [facility] Urea nitrogen [Mass/Vol] 12 mg/dL 7 - 17 mg/dL [facility] CBC W Auto Differential pane l (Bld)Ordered By: Annie Montalvo on 05-20-2023 Basophils (Bld) [#/Vol] 0.0 10*3/uL 0.0 - 0.2 10*3/uL [facility] Basophils/100 WBC (Bld) 0.7 % 0.0 - 2.0 % [facility] Eosinophils (Bld) [#/Vol] 0.1 10*3/uL 0.0 - 0.5 10*3/uL [facility] Eosinophils/100 WBC (Bld) 1.1 % 1.0 - 6.0 % [facility] Erythrocyte distribution width (RBC) [Ratio] 15.3 % High 11.5 - 14.5 % [facility] Hematocrit (Bld) [Volume fraction] 40.1 % 35.0 - 47.0 % [facility] Hemoglobin (Bld) [Mass/Vol] 13.8 g/dL 11.7 - 16.0 g/dL [facility] Immature granulocytes (Bld) [#/Vol] 0.1 10*3/uL High NINF - 0.0 10*3/uL [facility] Immature granulocytes/100 WBC (Bld) 1.5 % High NINF - 0.0 % [facility] Interpretation and review of laboratory results Abnormal [facility] Lymphocytes (Bld) [#/Vol] 0.6 10*3/uL Low 1.0 - 4.3 10*3/uL [facility] Lymphocytes/100 WBC (Bld) 11.6 % Low 20.0 - 40.0 % [facility] MCH (RBC) [Entitic mass] 31.9 pg 26.0 - 34.0 pg [facility] MCHC (RBC) [Mass/Vol] 34.4 % 32.0 - 36.0 % [facility] MCV (RBC) [Entitic vol] 92.6 fL 80.0 - 98.0 fL [facility] Monocytes (Bld) [#/Vol] 0.3 10*3/uL 0.0 - 0.8 10*3/uL [facility] Monocytes/100 WBC (Bld) 5.8 % 2.0 - 10.0 % [facility] Neutrophils (Bld) [#/Vol] 4.4 10*3/uL 1.8 - 7.0 10*3/uL [facility] Neutrophils/100 WBC (Bld) 79.3 % 40.0 - 80.0 % [facility] Platelet mean volume (Bld) [Entitic vol] 9.8 fL 7.4 - 12.4 fL [facility] Comment on above: MPV is a calculated measurement using platelet volume ratio Platelets (Bld) [#/Vol] 237 10*3/uL 140 - 440 10*3/uL [facility] RBC (Bld) [#/Vol] 4.33 10*6/uL 3.8 - 5.20 10*6/uL [facility] WBC (Bld) [#/Vol] 5.5 10*3/uL 3.6 - 10.7 10*3/uL [facility] Comprehensive metabolic 1998 panelon 05-20-2023 Albumin [Mass/Vol] 4.4 g/dL 3.5 - 5.0 g/dL [facility] ALP [Catalytic activity/Vol] 81 U/L 38 - 126 U/L [facility] ALT [Catalytic activity/Vol] 42 U/L High 0 - 34 U/L [facility] Anion gap [Moles/Vol] 7 mmol/L 3 - 13 mmol/L [facility] AST [Catalytic activity/Vol] 46 U/L 15 - 46 U/L [facility] Bilirubin [Mass/Vol] 0.7 mg/dL 0.2 - 1 .3 mg/dL [facility] Calcium [Mass/Vol] 8.9 mg/dL 8.4 - 10. 4 mg/dL [facility] Chloride [Moles/Vol] 106 mmol/L 98 - 10 7 mmol/L [facility] CO2 [Moles/Vol] 23 mmol/L 22 - 30 mmol/L [facility] Creatinine [Mass/Vol] 0.62 mg/dL 0.52 - 1.04 mg/dL [facility] GFR/1.73 sq M.predicted MDRD (S/P/Bld) [Vol rate/Area] - PINF [facility] Comment on above: Calculation based on the Chronic Kidney Disease Epidemiology Collaboration (CKD-EPI) equation refit without adjustment for race Glucose [Mass/Vol] 115 mg/dL High 70 - 100 mg/dL [facility] Interpretation and review of laboratory results Abnormal [facility] Potassium [Moles/Vol] 4.3 mmol/L 3.5 - 5.1 mmol/L [facility] Protein [Mass/Vol] 7.5 g/dL 6.3 - 8.2 g/dL [facility] Sodium [Moles/Vol] 136 mmol/L 135 - 145 mmol/L [facility] Urea nitrogen [Mass/Vol] 21 mg/dL High 7 - 17 mg/dL [facility] CBC W Auto Differential pane l (Bld)Ordered By: Radha Rain on 05-13-2023 Basophils (Bld) [#/Vol] 0.1 10*3/uL 0.0 - 0.2 10*3/uL [facility] Basophils/100 WBC (Bld) 1.0 % 0.0 - 2.0 % [facility] Eosinophils (Bld) [#/Vol] 0.1 10*3/uL 0.0 - 0.5 10*3/uL [facility] Eosinophils/100 WBC (Bld) 1.8 % 1.0 - 6.0 % [facility] Erythrocyte distribution width (RBC) [Ratio] 14.9 % High 11.5 - 14.5 % [facility] Hematocrit (Bld) [Volume fraction] 38.6 % 35.0 - 47.0 % [facility] Hemoglobin (Bld) [Mass/Vol] 12.9 g/dL 11.7 - 16.0 g/dL [facility] Immature granulocytes (Bld) [#/Vol] 0.1 10*3/uL High NINF - 0.0 10*3/uL [facility] Immature granulocytes/100 WBC (Bld) 1.6 % High NINF - 0.0 % [facility] Interpretation and review of laboratory results Abnormal [facility] Lymphocytes (Bld) [#/Vol] 0.9 10*3/uL Low 1.0 - 4.3 10*3/uL [facility] Lymphocytes/100 WBC (Bld) 17.0 % Low 20.0 - 40.0 % [facility] MCH (RBC) [Entitic mass] 31.2 pg 26.0 - 34.0 pg [facility] MCHC (RBC) [Mass/Vol] 33.4 % 32.0 - 36.0 % [facility] MCV (RBC) [Entitic vol] 93.5 fL 80.0 - 98.0 fL [facility] Monocytes (Bld) [#/Vol] 0.2 10*3/uL 0.0 - 0.8 10*3/uL [facility] Monocytes/100 WBC (Bld) 3.2 % 2.0 - 10.0 % [facility] Neutrophils (Bld) [#/Vol] 3.8 10*3/uL 1.8 - 7.0 10*3/uL [facility] Neutrophils/100 WBC (Bld) 75.4 % 40.0 - 80.0 % [facility] Platelet mean volume (Bld) [Entitic vol] 9.9 fL 7.4 - 12.4 fL [facility] Comment on above: MPV is a calculated measurement using platelet volume ratio Platelets (Bld) [#/Vol] 218 10*3/uL 140 - 440 10*3/uL [facility] RBC (Bld) [#/Vol] 4.13 10*6/uL 3.8 - 5.20 10*6/uL [facility] WBC (Bld) [#/Vol] 5.1 10*3/uL 3.6 - 10.7 10*3/uL [facility] Comprehensive metabolic 1998 panelon 05-13-2023 Albumin [Mass/Vol] 4.0 g/dL 3.5 - 5.0 g/dL [facility] ALP [Catalytic activity/Vol] 89 U/L 38 - 126 U/L [facility] ALT [Catalytic activity/Vol] 36 U/L High 0 - 34 U/L [facility] Anion gap [Moles/Vol] 8 mmol/L 3 - 13 mmol/L [facility] AST [Catalytic activity/Vol] 37 U/L 15 - 46 U/L [facility] Bilirubin [Mass/Vol] 0.5 mg/dL 0.2 - 1 .3 mg/dL [facility] Calcium [Mass/Vol] 8.5 mg/dL 8.4 - 10. 4 mg/dL [facility] Chloride [Moles/Vol] 105 mmol/L 98 - 10 7 mmol/L [facility] CO2 [Moles/Vol] 24 mmol/L 22 - 30 mmol/L [facility] Creatinine [Mass/Vol] 0.72 mg/dL 0.52 - 1.04 mg/dL [facility] GFR/1.73 sq M.predicted MDRD (S/P/Bld) [Vol rate/Area] 86.2 mL/min/{1.73_m2} - PINF [facility] Comment on above: Calculation based on the Chronic Kidney Disease Epidemiology Collaboration (CKD-EPI) equation refit without adjustment for race Glucose [Mass/Vol] 150 mg/dL High 70 - 100 mg/dL [facility] Interpretation and review of laboratory results Abnormal [facility] Potassium [Moles/Vol] 3.6 mmol/L 3.5 - 5.1 mmol/L [facility] Protein [Mass/Vol] 6.7 g/dL 6.3 - 8.2 g/dL [facility] Sodium [Moles/Vol] 137 mmol/L 135 - 145 mmol/L [facility] Urea nitrogen [Mass/Vol] 19 mg/dL High 7 - 17 mg/dL [facility] CBC W Auto Differential pane l (Bld)Ordered By: Radha Rain on 05-06-2023 Basophils (Bld) [#/Vol] 0.0 10*3/uL 0.0 - 0.2 10*3/uL [facility] Basophils/100 WBC (Bld) 0.9 % 0.0 - 2.0 % [facility] Eosinophils (Bld) [#/Vol] 0.1 10*3/uL 0.0 - 0.5 10*3/uL [facility] Eosinophils/100 WBC (Bld) 2.8 % 1.0 - 6.0 % [facility] Erythrocyte distribution width (RBC) [Ratio] 14.6 % High 11.5 - 14.5 % [facility] Hematocrit (Bld) [Volume fraction] 39.2 % 35.0 - 47.0 % [facility] Hemoglobin (Bld) [Mass/Vol] 13.0 g/dL 11.7 - 16.0 g/dL [facility] Immature granulocytes (Bld) [#/Vol] 0.1 10*3/uL High NINF - 0.0 10*3/uL [facility] Immature granulocytes/100 WBC (Bld) 1.7 % High NINF - 0.0 % [facility] Interpretation and review of laboratory results Abnormal [facility] Lymphocytes (Bld) [#/Vol] 0.8 10*3/uL Low 1.0 - 4.3 10*3/uL [facility] Lymphocytes/100 WBC (Bld) 18.0 % Low 20.0 - 40.0 % [facility] MCH (RBC) [Entitic mass] 31.1 pg 26.0 - 34.0 pg [facility] MCHC (RBC) [Mass/Vol] 33.2 % 32.0 - 36.0 % [facility] MCV (RBC) [Entitic vol] 93.8 fL 80.0 - 98.0 fL [facility] Monocytes (Bld) [#/Vol] 0.3 10*3/uL 0.0 - 0.8 10*3/uL [facility] Monocytes/100 WBC (Bld) 5.4 % 2.0 - 10.0 % [facility] Neutrophils (Bld) [#/Vol] 3.3 10*3/uL 1.8 - 7.0 10*3/uL [facility] Neutrophils/100 WBC (Bld) 71.2 % 40.0 - 80.0 % [facility] Platelet mean volume (Bld) [Entitic vol] 10.0 fL 7.4 - 12.4 fL [facility] Comment on above: MPV is a calculated measurement using platelet volume ratio Platelets (Bld) [#/Vol] 184 10*3/uL 140 - 440 10*3/uL [facility] RBC (Bld) [#/Vol] 4.18 10*6/uL 3.8 - 5.20 10*6/uL [facility] WBC (Bld) [#/Vol] 4.7 10*3/uL 3.6 - 10.7 10*3/uL [facility] Comprehensive metabolic 1998 panelon 05-06-2023 Albumin [Mass/Vol] 3.9 g/dL 3.5 - 5.0 g/dL [facility] ALP [Catalytic activity/Vol] 80 U/L 38 - 126 U/L [facility] ALT [Catalytic activity/Vol] 40 U/L High 0 - 34 U/L [facility] Anion gap [Moles/Vol] 9 mmol/L 3 - 13 mmol/L [facility] AST [Catalytic activity/Vol] 36 U/L 15 - 46 U/L [facility] Bilirubin [Mass/Vol] 0.5 mg/dL 0.2 - 1 .3 mg/dL [facility] Calcium [Mass/Vol] 8.6 mg/dL 8.4 - 10. 4 mg/dL [facility] Chloride [Moles/Vol] 105 mmol/L 98 - 10 7 mmol/L [facility] CO2 [Moles/Vol] 24 mmol/L 22 - 30 mmol/L [facility] Creatinine [Mass/Vol] 0.61 mg/dL 0.52 - 1.04 mg/dL [facility] GFR/1.73 sq M.predicted MDRD (S/P/Bld) [Vol rate/Area] - PINF [facility] Comment on above: Calculation based on the Chronic Kidney Disease Epidemiology Collaboration (CKD-EPI) equation refit without adjustment for race Glucose [Mass/Vol] 125 mg/dL High 70 - 100 mg/dL [facility] Interpretation and review of laboratory results Abnormal [facility] Potassium [Moles/Vol] 3.8 mmol/L 3.5 - 5.1 mmol/L [facility] Protein [Mass/Vol] 6.7 g/dL 6.3 - 8.2 g/dL [facility] Sodium [Moles/Vol] 139 mmol/L 135 - 145 mmol/L [facility] Urea nitrogen [Mass/Vol] 22 mg/dL High 7 - 17 mg/dL [facility] CBC W Auto Differential pane l (Bld)Ordered By: Annie Montalvo on 04-29-2023 Basophils (Bld) [#/Vol] 0.0 10*3/uL 0.0 - 0.2 10*3/uL [facility] Basophils/100 WBC (Bld) 0.6 % 0.0 - 2.0 % [facility] Eosinophils (Bld) [#/Vol] 0.1 10*3/uL 0.0 - 0.5 10*3/uL [facility] Eosinophils/100 WBC (Bld) 1.8 % 1.0 - 6.0 % [facility] Erythrocyte distribution width (RBC) [Ratio] 14.5 % 11.5 - 14.5 % [facility] Hematocrit (Bld) [Volume fraction] 40.1 % 35.0 - 47.0 % [facility] Hemoglobin (Bld) [Mass/Vol] 13.4 g/dL 11.7 - 16.0 g/dL [facility] Immature granulocytes (Bld) [#/Vol] 0.1 10*3/uL High NINF - 0.0 10*3/uL [facility] Immature granulocytes/100 WBC (Bld) 1.3 % High NINF - 0.0 % [facility] Interpretation and review of laboratory results Abnormal [facility] Lymphocytes (Bld) [#/Vol] 1.3 10*3/uL 1.0 - 4.3 10*3/uL [facility] Lymphocytes/100 WBC (Bld) 18.5 % Low 20.0 - 40.0 % [facility] MCH (RBC) [Entitic mass] 31.2 pg 26.0 - 34.0 pg [facility] MCHC (RBC) [Mass/Vol] 33.4 % 32.0 - 36.0 % [facility] MCV (RBC) [Entitic vol] 93.3 fL 80.0 - 98.0 fL [facility] Monocytes (Bld) [#/Vol] 0.3 10*3/uL 0.0 - 0.8 10*3/uL [facility] Monocytes/100 WBC (Bld) 4.4 % 2.0 - 10.0 % [facility] Neutrophils (Bld) [#/Vol] 5.0 10*3/uL 1.8 - 7.0 10*3/uL [facility] Neutrophils/100 WBC (Bld) 73.4 % 40.0 - 80.0 % [facility] Platelet mean volume (Bld) [Entitic vol] 9.7 fL 7.4 - 12.4 fL [facility] Comment on above: MPV is a calculated measurement using platelet volume ratio Platelets (Bld) [#/Vol] 211 10*3/uL 140 - 440 10*3/uL [facility] RBC (Bld) [#/Vol] 4.30 10*6/uL 3.8 - 5.20 10*6/uL [facility] WBC (Bld) [#/Vol] 6.8 10*3/uL 3.6 - 10.7 10*3/uL [facility] Comprehensive metabolic 1998 panelon 04-29-2023 Albumin [Mass/Vol] 4.1 g/dL 3.5 - 5.0 g/dL [facility] ALP [Catalytic activity/Vol] 99 U/L 38 - 126 U/L [facility] ALT [Catalytic activity/Vol] 33 U/L 0 - 34 U/L [facility] Anion gap [Moles/Vol] 9 mmol/L 3 - 13 mmol/L [facility] AST [Catalytic activity/Vol] 38 U/L 15 - 46 U/L [facility] Bilirubin [Mass/Vol] 0.4 mg/dL 0.2 - 1 .3 mg/dL [facility] Calcium [Mass/Vol] 8.3 mg/dL Low 8.4 - 10. 4 mg/dL [facility] Chloride [Moles/Vol] 105 mmol/L 98 - 10 7 mmol/L [facility] CO2 [Moles/Vol] 24 mmol/L 22 - 30 mmol/L [facility] Creatinine [Mass/Vol] 0.59 mg/dL 0.52 - 1.04 mg/dL [facility] GFR/1.73 sq M.predicted MDRD (S/P/Bld) [Vol rate/Area] - PINF [facility] Comment on above: Calculation based on the Chronic Kidney Disease Epidemiology Collaboration (CKD-EPI) equation refit without adjustment for race Glucose [Mass/Vol] 121 mg/dL High 70 - 100 mg/dL [facility] Interpretation and review of laboratory results Abnormal [facility] Potassium [Moles/Vol] 4.0 mmol/L 3.5 - 5.1 mmol/L [facility] Protein [Mass/Vol] 7.0 g/dL 6.3 - 8.2 g/dL [facility] Sodium [Moles/Vol] 139 mmol/L 135 - 145 mmol/L [facility] Urea nitrogen [Mass/Vol] 22 mg/dL High 7 - 17 mg/dL [facility] CBC W Auto Differential pane l (Bld)Ordered By: Radha Rain on 04-22-2023 Basophils (Bld) [#/Vol] 0.0 10*3/uL 0.0 - 0.2 10*3/uL [facility] Basophils/100 WBC (Bld) 0.8 % 0.0 - 2.0 % [facility] Eosinophils (Bld) [#/Vol] 0.1 10*3/uL 0.0 - 0.5 10*3/uL [facility] Eosinophils/100 WBC (Bld) 1.5 % 1.0 - 6.0 % [facility] Erythrocyte distribution width (RBC) [Ratio] 14.3 % 11.5 - 14.5 % [facility] Hematocrit (Bld) [Volume fraction] 39.2 % 35.0 - 47.0 % [facility] Hemoglobin (Bld) [Mass/Vol] 12.9 g/dL 11.7 - 16.0 g/dL [facility] Immature granulocytes (Bld) [#/Vol] 0.1 10*3/uL High NINF - 0.0 10*3/uL [facility] Immature granulocytes/100 WBC (Bld) 1.1 % High NINF - 0.0 % [facility] Interpretation and review of laboratory results Abnormal [facility] Lymphocytes (Bld) [#/Vol] 1.1 10*3/uL 1.0 - 4.3 10*3/uL [facility] Lymphocytes/100 WBC (Bld) 23.4 % 20.0 - 40.0 % [facility] MCH (RBC) [Entitic mass] 30.9 pg 26.0 - 34.0 pg [facility] MCHC (RBC) [Mass/Vol] 32.9 % 32.0 - 36.0 % [facility] MCV (RBC) [Entitic vol] 93.8 fL 80.0 - 98.0 fL [facility] Monocytes (Bld) [#/Vol] 0.5 10*3/uL 0.0 - 0.8 10*3/uL [facility] Monocytes/100 WBC (Bld) 10.0 % 2.0 - 10.0 % [facility] Neutrophils (Bld) [#/Vol] 3.0 10*3/uL 1.8 - 7.0 10*3/uL [facility] Neutrophils/100 WBC (Bld) 63.2 % 40.0 - 80.0 % [facility] Platelet mean volume (Bld) [Entitic vol] 9.3 fL 7.4 - 12.4 fL [facility] Comment on above: MPV is a calculated measurement using platelet volume ratio Platelets (Bld) [#/Vol] 223 10*3/uL 140 - 440 10*3/uL [facility] RBC (Bld) [#/Vol] 4.18 10*6/uL 3.8 - 5.20 10*6/uL [facility] WBC (Bld) [#/Vol] 4.7 10*3/uL 3.6 - 10.7 10*3/uL [facility] Comprehensive metabolic 1998 panelon 04-22-2023 Albumin [Mass/Vol] 3.9 g/dL 3.5 - 5.0 g/dL [facility] ALP [Catalytic activity/Vol] 100 U/L 38 - 126 U/L [facility] ALT [Catalytic activity/Vol] 36 U/L High 0 - 34 U/L [facility] Anion gap [Moles/Vol] 3 mmol/L 3 - 13 mmol/L [facility] AST [Catalytic activity/Vol] 37 U/L 15 - 46 U/L [facility] Bilirubin [Mass/Vol] 0.4 mg/dL 0.2 - 1 .3 mg/dL [facility] Calcium [Mass/Vol] 8.6 mg/dL 8.4 - 10. 4 mg/dL [facility] Chloride [Moles/Vol] 107 mmol/L 98 - 10 7 mmol/L [facility] CO2 [Moles/Vol] 28 mmol/L 22 - 30 mmol/L [facility] Creatinine [Mass/Vol] 0.56 mg/dL 0.52 - 1.04 mg/dL [facility] GFR/1.73 sq M.predicted MDRD (S/P/Bld) [Vol rate/Area] - PINF [facility] Comment on above: Calculation based on the Chronic Kidney Disease Epidemiology Collaboration (CKD-EPI) equation refit without adjustment for race Glucose [Mass/Vol] 139 mg/dL High 70 - 100 mg/dL [facility] Interpretation and review of laboratory results Abnormal [facility] Potassium [Moles/Vol] 3.8 mmol/L 3.5 - 5.1 mmol/L [facility] Protein [Mass/Vol] 6.7 g/dL 6.3 - 8.2 g/dL [facility] Sodium [Moles/Vol] 138 mmol/L 135 - 145 mmol/L [facility] Urea nitrogen [Mass/Vol] 17 mg/dL 7 - 17 mg/dL [facility] CBC W Auto Differential pane l (Bld)Ordered By: Radha Rain on 04-08-2023 Basophils (Bld) [#/Vol] 0.0 10*3/uL 0.0 - 0.2 10*3/uL [facility] Basophils (Bld) [#/Vol] 0 10*3/uL 0.0 - 0.2 10*3/uL [facility] Basophils/100 WBC (Bld) 0.9 % 0.0 - 2.0 % [facility] Eosinophils (Bld) [#/Vol] 0.1 10*3/uL 0.0 - 0.5 10*3/uL [facility] Eosinophils/100 WBC (Bld) 2.6 % 1.0 - 6.0 % [facility] Erythrocyte distribution width (RBC) [Ratio] 14.0 % 11.5 - 14.5 % [facility] Erythrocyte distribution width (RBC) [Ratio] 14 % 11.5 - 14.5 % [facility] Hematocrit (Bld) [Volume fraction] 39.1 % 35.0 - 47.0 % [facility] Hemoglobin (Bld) [Mass/Vol] 12.8 g/dL 11.7 - 16.0 g/dL [facility] Immature granulocytes (Bld) [#/Vol] 0.1 10*3/uL High NINF - 0.0 10*3/uL [facility] Immature granulocytes/100 WBC (Bld) 1.9 % High NINF - 0.0 % [facility] Interpretation and review of laboratory results Abnormal [facility] Lymphocytes (Bld) [#/Vol] 0.9 10*3/uL Low 1.0 - 4.3 10*3/uL [facility] Lymphocytes/100 WBC (Bld) 18.6 % Low 20.0 - 40.0 % [facility] MCH (RBC) [Entitic mass] 31.0 pg 26.0 - 34.0 pg [facility] MCH (RBC) [Entitic mass] 31 pg 26.0 - 34.0 pg [facility] MCHC (RBC) [Mass/Vol] 32.7 % 32.0 - 36.0 % [facility] MCV (RBC) [Entitic vol] 94.7 fL 80.0 - 98.0 fL [facility] Monocytes (Bld) [#/Vol] 0.2 10*3/uL 0.0 - 0.8 10*3/uL [facility] Monocytes/100 WBC (Bld) 3.2 % 2.0 - 10.0 % [facility] Neutrophils (Bld) [#/Vol] 3.4 10*3/uL 1.8 - 7.0 10*3/uL [facility] Neutrophils/100 WBC (Bld) 72.8 % 40.0 - 80.0 % [facility] Platelet mean volume (Bld) [Entitic vol] 10.1 fL 7.4 - 12.4 fL [facility] Comment on above: MPV is a calculated measurement using platelet volume ratio Platelets (Bld) [#/Vol] 186 10*3/uL 140 - 440 10*3/uL [facility] RBC (Bld) [#/Vol] 4.13 10*6/uL 3.8 - 5.20 10*6/uL [facility] WBC (Bld) [#/Vol] 4.7 10*3/uL 3.6 - 10.7 10*3/uL [facility] Comprehensive metabolic 1998 panelon 04-08-2023 Albumin [Mass/Vol] 4.0 g/dL 3.5 - 5.0 g/dL [facility] Albumin [Mass/Vol] 4 g/dL 3.5 - 5.0 g/dL [facility] ALP [Catalytic activity/Vol] 86 U/L 38 - 126 U/L [facility] ALT [Catalytic activity/Vol] 42 U/L High 0 - 34 U/L [facility] Anion gap [Moles/Vol] 2 mmol/L Low 3 - 13 mmol/L [facility] AST [Catalytic activity/Vol] 37 U/L 15 - 46 U/L [facility] Bilirubin [Mass/Vol] 0.6 mg/dL 0.2 - 1 .3 mg/dL [facility] Calcium [Mass/Vol] 8.7 mg/dL 8.4 - 10. 4 mg/dL [facility] Chloride [Moles/Vol] 106 mmol/L 98 - 10 7 mmol/L [facility] CO2 [Moles/Vol] 30 mmol/L 22 - 30 mmol/L [facility] Creatinine [Mass/Vol] 0.60 mg/dL 0.52 - 1.04 mg/dL [facility] Creatinine [Mass/Vol] 0.6 mg/dL 0.52 - 1.04 mg/dL [facility] GFR/1.73 sq M.predicted MDRD (S/P/Bld) [Vol rate/Area] - PINF [facility] Comment on above: Calculation based on the Chronic Kidney Disease Epidemiology Collaboration (CKD-EPI) equation refit without adjustment for race Glucose [Mass/Vol] 88 mg/dL 70 - 100 mg/dL [facility] Interpretation and review of laboratory results Abnormal [facility] Potassium [Moles/Vol] 4.1 mmol/L 3.5 - 5.1 mmol/L [facility] Protein [Mass/Vol] 6.6 g/dL 6.3 - 8.2 g/dL [facility] Sodium [Moles/Vol] 138 mmol/L 135 - 145 mmol/L [facility] Urea nitrogen [Mass/Vol] 21 mg/dL High 7 - 17 mg/dL [facility] CBC W Auto Differential pane l (Bld)Ordered By: Radha Rain on 04-01-2023 Basophils (Bld) [#/Vol] 0.0 10*3/uL 0.0 - 0.2 10*3/uL [facility] Basophils/100 WBC (Bld) 0.1 % 0.0 - 2.0 % [facility] Eosinophils (Bld) [#/Vol] 0.0 10*3/uL 0.0 - 0.5 10*3/uL [facility] Eosinophils/100 WBC (Bld) 0.0 % Low 1.0 - 6.0 % [facility] Erythrocyte distribution width (RBC) [Ratio] 13.8 % 11.5 - 14.5 % [facility] Hematocrit (Bld) [Volume fraction] 42.8 % 35.0 - 47.0 % [facility] Hemoglobin (Bld) [Mass/Vol] 14.1 g/dL 11.7 - 16.0 g/dL [facility] Immature granulocytes (Bld) [#/Vol] 0.0 10*3/uL NINF - 0.0 10*3/uL [facility] Immature granulocytes/100 WBC (Bld) 0.3 % High NINF - 0.0 % [facility] Interpretation and review of laboratory results Abnormal [facility] Lymphocytes (Bld) [#/Vol] 0.7 10*3/uL Low 1.0 - 4.3 10*3/uL [facility] Lymphocytes/100 WBC (Bld) 5.2 % Low 20.0 - 40.0 % [facility] MCH (RBC) [Entitic mass] 30.7 pg 26.0 - 34.0 pg [facility] MCHC (RBC) [Mass/Vol] 32.9 % 32.0 - 36.0 % [facility] MCV (RBC) [Entitic vol] 93.2 fL 80.0 - 98.0 fL [facility] Monocytes (Bld) [#/Vol] 0.4 10*3/uL 0.0 - 0.8 10*3/uL [facility] Monocytes/100 WBC (Bld) 2.6 % 2.0 - 10.0 % [facility] Neutrophils (Bld) [#/Vol] 12.3 10*3/uL High 1.8 - 7.0 10*3/uL [facility] Neutrophils/100 WBC (Bld) 91.8 % High 40.0 - 80.0 % [facility] Platelet mean volume (Bld) [Entitic vol] 9.8 fL 7.4 - 12.4 fL [facility] Comment on above: MPV is a calculated measurement using platelet volume ratio Platelets (Bld) [#/Vol] 221 10*3/uL 140 - 440 10*3/uL [facility] RBC (Bld) [#/Vol] 4.59 10*6/uL 3.8 - 5.20 10*6/uL [facility] WBC (Bld) [#/Vol] 13.4 10*3/uL High 3.6 - 10.7 10*3/uL [facility] Comprehensive metabolic 1998 panelon 04-01-2023 Albumin [Mass/Vol] 4.5 g/dL 3.5 - 5.0 g/dL [facility] ALP [Catalytic activity/Vol] 98 U/L 38 - 126 U/L [facility] ALT [Catalytic activity/Vol] 20 U/L 0 - 34 U/L [facility] Anion gap [Moles/Vol] 8 mmol/L 3 - 13 mmol/L [facility] AST [Catalytic activity/Vol] 28 U/L 15 - 46 U/L [facility] Bilirubin [Mass/Vol] 0.5 mg/dL 0.2 - 1 .3 mg/dL [facility] Calcium [Mass/Vol] 9.0 mg/dL 8.4 - 10. 4 mg/dL [facility] Chloride [Moles/Vol] 107 mmol/L 98 - 10 7 mmol/L [facility] CO2 [Moles/Vol] 23 mmol/L 22 - 30 mmol/L [facility] Creatinine [Mass/Vol] 0.55 mg/dL 0.52 - 1.04 mg/dL [facility] GFR/1.73 sq M.predicted MDRD (S/P/Bld) [Vol rate/Area] - PINF [facility] Comment on above: Calculation based on the Chronic Kidney Disease Epidemiology Collaboration (CKD-EPI) equation refit without adjustment for race Glucose [Mass/Vol] 196 mg/dL High 70 - 100 mg/dL [facility] Interpretation and review of laboratory results Abnormal [facility] Potassium [Moles/Vol] 3.9 mmol/L 3.5 - 5.1 mmol/L [facility] Protein [Mass/Vol] 7.5 g/dL 6.3 - 8.2 g/dL [facility] Sodium [Moles/Vol] 138 mmol/L 135 - 145 mmol/L [facility] Urea nitrogen [Mass/Vol] 21 mg/dL High 7 - 17 mg/dL [facility] Heart TransthoracicOrdere d By: Miller Kim on 03-26-2023 AR [employer] PISA 3.9 m/s [facility] Work Phone: AR PHT 578.7 ms [facility] Work Phone: E/E' Lateral 9.00 [facility] Work Phone: E/E' Ratio (Averaged) 9.64 [facility] Work Phone: E/E' Septal 10.29 [facility] Work Phone: EF BP 63 % 55 - 100 % [facility] Work Phone: Est. RA Pressure 3 mmHg [facility] Work Phone: Fractional Shortening 2D 35 % 28 - 44 % [facility] Work Phone: Global Longitudinal Strain -17.0 % [facility] Work Phone: Interpretation and review of laboratory results Abnormal [facility] Work Phone: IVC Diameter 1.6 cm [facility] Work Phone: IVSd 0.9 cm 0.6 - 0.9 cm [facility] Work Phone: LA Volume 2C 71 mL Abnormal 22 - 52 mL [facility] Work Phone: LA Volume 4C 37 mL 22 - 52 mL [facility] Work Phone: LA Volume A/L [address] [facility] Work Phone: [place] Volume Index 2C 36 mL/m2 Abnormal 16 - 34 mL/m2 [facility] [employer] Work Phone: LA Volume Index 4C 19 mL/m2 16 - 34 mL/m2 [facility] Work Phone: LA Volume Index A/L 28 mL/m2 16 - 34 mL/m2 [facility] Work Phone: LV E' Lateral Velocity 8 cm/s [facility] Work Phone: LV E' Septal Velocity 7 cm/s [facility] Work Phone: LV EDV A2C 70 mL [facility] Work Phone: LV EDV A4C 92 mL [facility] Work Phone: LV EDV BP 81 mL 56 - 104 mL [facility] Work Phone: LV EDV Index A2C 35 mL/m2 [facility] Work Phone: LV EDV Index A4C 46 mL/m2 [facility] Work Phone: LV EDV Index BP 41 mL/m2 [facility] Work Phone: [phone] LV Ejection Fraction A2C 59 % [facility] Work Phone: LV Ejection Fraction A4C 67 % [facility] Work Phone: LV ESV A2C 29 mL [facility] Work Phone: LV ESV A4C 31 mL [facility] Work Phone: LV ESV BP 30 mL 19 - 49 mL [facility] Work Phone: LV ESV Index A2C 15 mL/m2 [facility] Work Phone: LV ESV Index A4C 16 mL/m2 [facility] Work Phone: LV ESV Index BP 15 mL/m2 [facility] Work Phone: LV Mass 2D 117.9 g 67 - 162 g [facility] Work Phone: LV Mass 2D Index 59.2 g/m2 43 - 95 [facility] Work Phone: LV RWT Ratio 0.30 [facility] Work Phone: LVIDd 4.6 cm 3.9 - 5.3 cm [facility] Work Phone: LVIDd Index 2.31 cm/m2 [facility] Work Phone: LVIDs 3.0 cm [facility] Work Phone: LVIDs Index 1.51 cm/m2 [facility] Work Phone: LVOT Area 2.8 cm2 [facility] Work Phone: [phone] LVOT Cardiac Output 4.1 liter/mi nut e [employer] Phone: LVOT Diameter 1.9 cm [facility] Work Phone: LVOT Mean Gradient 2 mmHg [employer] Phone: LVOT Peak Gradient 3 mmHg [employer] Phone: LVOT Peak Velocity 0.9 m/s [employer] Phone: LVOT Stroke Volume Index 28.5 mL/m2 [employer] Phone: LVOT SV 56.7 ml [employer] Phone: LVOT VTI 20.0 cm [employer] Phone: LVPWd 0.7 cm 0.6 - 0.9 cm [employer] Phone: MV A Velocity 1.10 m/s [facility] Work Phone: MV E Velocity 0.72 m/s [facility] Work Phone: MV E Wave Deceleration Time 198.7 ms [employer] Phone: MV E/A 0.65 [employer] Phone: RV Free Wall Peak S' 11 cm/s [employer] Phone: TAPSE 2.4 cm 1.7 cm [employer] Work Phone: [employer] Phone: Heart Transthoracicon Left Ventricle: Left ventricle [...] CV CPACS US LOC BREAST LEFTon 023 [facility] BNPon 02-06-2023 Natriuretic peptide B (Bld) [Mass/Vol] 29 pg/mL Normal 0 - 99 [facility] Comment on above: Result Comment: . [...] Performed By: #### B NP2 #### [facility] [address] [place] [address] CBC AND DIFFERENTIALon 02-06 % AUTOMATED IMMATURE GRAN 0.3 % Normal 0.0 - 0.9 [facility] Comment on above: Result Comment: Charo ture Granulocyte Count (IG) includes promyelocytes, myelocytes and metamyelocytes but does not include bands. Percent differential counts (%) should be interpreted in the context of the absolute cell counts (cells/L). Performed By: #### C BCDF #### [facility] [address] [place] [address] Basophils (Bld) [#/Vol] 0.03 10*3/uL Normal 0.00 - 0.[address] [facility] Comment on above: Performed By: #### C BCDF #### [facility] [address] [place] [address] Basophils/100 WBC (Bld) 0.4 % Normal 0.0 - 2.0 [facility] Comment on above: Performed By: #### C BCDF #### [facility] [address] [place] [address] Eosinophils (Bld) [#/Vol] 0.11 10*3/uL Normal 0.00 - 0.40 [facility] Comment on above: Performed By: #### C BCDF #### [facility] [address] [place] [address] Eosinophils/100 WBC (Bld) 1.6 % Normal 0.0 - 6.0 [facility] Comment on above: Performed By: #### C BCDF #### [facility] [address] [place] [address] Erythrocyte distribution width (RBC) [Ratio] 14.0 % Normal 11.5 - 14.5 [facility] Comment on above: Performed By: #### C BCDF #### [facility] [address] [place] [address] Hematocrit (Bld) [Volume fraction] 44.5 % Normal 36.0 - 46.0 [facility] Comment on above: Performed By: #### C BCDF #### [facility] [address] [place] [address] Hemoglobin (Bld) [Mass/Vol] 14.3 g/dL Normal 12.0 - 16.0 [facility] Comment on above: Performed By: #### C BCDF #### [facility] [address] [place] [address] Lymphocytes (Bld) [#/Vol] 1.71 10*3/uL Normal 0.80 - 3.00 [facility] Comment on above: Performed By: #### C BCDF #### [facility] [address] [place] [address] Lymphocytes/100 WBC (Bld) 24.3 % Normal 13.0 - 44.0 [facility] Comment on above: Performed By: #### C BCDF #### [facility] [address] [place] [address] MCHC (RBC) [Mass/Vol] 32.1 g/dL Normal 32.0 - 36.0 [facility] Comment on above: Performed By: #### C BCDF #### [facility] [address] [place] [address] MCV (RBC) [Entitic vol] 95 fL Normal 80 - 100 [facility] Comment on above: Performed By: #### C BCDF #### [facility] [address] [place] [address] Monocytes (Bld) [#/Vol] 0.61 10*3/uL Normal 0.05 - 0.[address] [facility] Comment on above: Performed By: #### C BCDF #### [facility] [address] [place] [address] Monocytes/100 WBC (Bld) 8.7 % Normal 2.0 - 10.0 [facility] Comment on above: Performed By: #### C BCDF #### [facility] [address] [place] [address] Neutrophils (Bld) [#/Vol] 4.56 10*3/uL Normal 1.60 - 5.50 [facility] Comment on above: Performed By: #### C BCDF #### [facility] [address] [place] [address] Neutrophils/100 WBC (Bld) 64.7 % Normal 40.0 - 80.0 [facility] Comment on above: Performed By: #### C BCDF #### [facility] [address] [place] [address] NUCLEATED RBC 0.0 /100 WBC Normal 0.0-0.0 [facility] Comment on above: Performed By: #### C BCDF #### [facility] [address] [place] [address] Platelets (Bld) [#/Vol] 243 10*3/uL Normal 150 - 450 [facility] Comment on above: Performed By: #### C BCDF #### [facility] [address] [place] [address] RBC 4.70 x10E12/L Normal 4.00 - 5.20 [facility] Comment on above: Performed By: #### C BCDF #### [facility] [address] [place] [address] WBC (Bld) [#/Vol] 7.0 10*3/uL Normal 4.4 - 11.3 [facility] Comment on above: Performed By: #### C BCDF #### [facility] [address] [place] [address] COMPREHENSIVE PANELon 2022 Albumin [Mass/Vol] 4.4 g/dL Normal 3.4 - 5.0 [facility] Comment on above: Performed By: #### T HYDS #### [facility] [address] [place] [address] ALP [Catalytic activity/Vol] 84 U/L Normal 33 - 136 [facility] Comment on above: Performed By: #### T HYDS #### [place] [address] [place] [address] ALT [Catalytic activity/Vol] 14 U/L Normal 7 - 45 [facility] Comment on above: Result Comment: Suzanne ents treated with Sulfasalazine may generate falsely decreased results for ALT. Performed By: #### T HYDS #### [facility] [address] [place] [address] Anion gap [Moles/Vol] 17 mmol/L Normal 10 - 20 [facility] Comment on above: Performed By: #### T HYDS #### [facility] [address] [place] [address] AST [Catalytic activity/Vol] 17 U/L Normal 9 - 39 [facility] Comment on above: Performed By: #### T HYDS #### [facility] [address] [place] [address] Bilirubin [Mass/Vol] 0.6 mg/dL Normal 0.0 - 1.2 [facility] Comment on above: Performed By: #### T HYDS #### [facility] [address] [place] [address] Calcium [Mass/Vol] 9.3 mg/dL Normal 8.6 - 10.6 [facility] Comment on above: Performed By: #### T HYDS #### [place] [address] [place] [address] Chloride [Moles/Vol] 104 mmol/L Normal 98 - 107 [facility] Comment on above: Performed By: #### T HYDS #### [place] [address] [place] [address] Creatinine [Mass/Vol] 0.69 mg/dL Normal 0.50 - 1.05 [facility] Comment on above: Performed By: #### T HYDS #### [facility] [address] [place] [address] GFR/1.73 sq M.predicted among non-blacks MDRD (S/P/Bld) [Vol rate/Area] 89 mL/min/{1.73_m2} Normal >90 [facility] Comment on above: Result Comment: CALC ULATIONS OF ESTIMATED GFR ARE PERFORMED USING THE 2020 CKD-EPI STUDY REFIT EQUATION WITHOUT THE RACE VARIABLE FOR THE IDMS-TRACEABLE CREATININE METHODS. https://jasn.asnjournals.org/content/early//ASN.2020 422411 Performed By: #### T HYDS #### [facility] [address] [place] [address] Glucose [Mass/Vol] 83 mg/dL Normal 74 - 99 [facility] Comment on above: Performed By: #### T HYDS #### [facility] [address] [place] [address] HCO3 (Bld) [Moles/Vol] 26 mmol/L Normal 21 - 32 [facility] Comment on above: Performed By: #### T HYDS #### [facility] [address] [place] [address] Potassium [Moles/Vol] 4.2 mmol/L Normal 3.5 - 5.3 [facility] Comment on above: Performed By: #### T HYDS #### [facility] [address] [place] [address] Protein [Mass/Vol] 7.0 g/dL Normal 6.4 - 8.2 [facility] Comment on above: Performed By: #### T HYDS #### [facility] [address] [place] [address] Sodium [Moles/Vol] 143 mmol/L Normal 136 - 145 [facility] Comment on above: Performed By: #### T HYDS #### [facility] [address] [place] [address] Urea nitrogen [Mass/Vol] 17 mg/dL Normal 6 - 23 [facility] Comment on above: Performed By: #### T HYDS #### [facility] [address] [place] [address] TSH WITH REFLEX TO FREE T4 I F ABNORMALon 02-06-2023 TSH Qn 2.70 m[IU]/L Normal 0.44 - 3.98 [facility] Comment on above: Result Comment: TSH testing is performed using different testing methodology at [facility] than at other [facility]. Direct result comparisons should only be made within the same method. Performed By: #### T HYDS #### [facility] [address] [place] [address] UA MICROSCOPICon 02-06-2023 Mucus Ql (Urine sed) 1+ /LPF Normal [facility] Comment on above: Performed By: #### T HYDS #### [facility] [address] [place] [address] RBC 2 /HPF Normal 0-5 [facility] Comment on above: Performed By: #### T HYDS #### [facility] [address] [place] [address] SQUAMOUS EPITH. CELLS 3 /HPF Normal [facility] Comment on above: Performed By: #### T HYDS #### [facility] [address] [place] [address] WBC 6 /HPF Abnormal 0-5 [facility] Comment on above: Performed By: #### T HYDS #### [facility] [address] [place] [address] URINALYSISon 02-06-2023 Appearance (U) CLEAR Normal CLEAR [facility] Comment on above: Performed By: #### U A #### [facility] [address] [place] [address] Bilirubin Ql (U) Negative Normal NEGATIVE [facility] Comment on above: Performed By: #### U A #### [facility] [address] [place] [address] Color (U) YELLOW Normal STRAW,YELLO W [facility] Comment on above: Performed By: #### U A #### [facility] [address] [place] [address] Glucose Ql (U) Negative Normal NEGATIVE [facility] Comment on above: Performed By: #### U A #### [facility] [address] [place] [address] Hemoglobin Ql (U) Negative Normal NEGATIVE [facility] [place] Comment on above: Performed By: #### U A #### [facility] [address] [place] [address] Ketones Ql (U) Negative Normal NEGATIVE [facility] Comment on above: Performed By: #### U A #### [facility] [address] [place] [address] Leukocyte esterase Test strip Ql (U) LARGE (3+) Abnormal NEGATIVE [facility] Comment on above: Performed By: #### U A #### [facility] [address] [place] [address] Nitrite Ql (U) Negative Normal NEGATIVE [facility] Comment on above: Performed By: #### U A #### [facility] [address] [place] [address] pH (U) 7.0 [pH] Normal 5.0 - 8.0 [facility] Comment on above: Performed By: #### U A #### [facility] [address] [place] [address] Protein Ql (U) Negative Normal NEGATIVE [facility] Comment on above: Performed By: #### U A #### [facility] [address] [place] [address] Specific gravity (U) [Rel density] 1.011 Normal 1.005 - 1.035 [facility] Comment on above: Performed By: #### U A #### [facility] [address] [place] [address] Urobilinogen (U) [Mass/Vol] mg/dL Normal 0.0 - 1.9 [facility] Comment on above: Performed By: #### U A #### [facility] [address] [place] CBC AND DIFFERENTIALon 02-05 Lab Specimen Source Normal [facility] Comment on above: Performed By: #### C BCDF #### [facility] [address] [place] [address] Performed By: #### U A #### [facility] [address] [place] [address] Performed By: #### B NP2 #### [facility] [address] [place] [address] Performed By: #### T HYDS #### [facility] [address] [place] LEE DIAGNOSTIC LEFTon 2022 [facility] US BIOPSY BREAST LEFTon 08-0 [facility] LEE DIAG W SHIVA LEFTon 01-21 [facility] No Panel Informationon 01-21 [facility] Dermatopathologyon Dermatopathology Name MADIHA PERALES Pathologist: ARCHIE MORENO MD Date of Procedure: 10/30/2022 Date Received: 10/31/2022 Date Reported 11/01/2022 Submitting Physician: DARA SORENSEN DO Location: Other External # FINAL DIAGNOSIS SKIN, MID UPPER BACK, BIOPSY: INFLAMED SEBORRHEIC KERATOSIS, PRESENT ON THE DEEP AND PERIPHERAL MARGIN. Electronically Signed Out by ARCHIE MORENO M.D. Electronically Signed Out By ARCHIE MORENO MD/[facility] By the signature on this report, the individual or group listed as making the Final Interpretation/Diagno sis certifies that they have reviewed this case. Diagnostic interpretation performed at [facility] [address] [place] [address], [place] [address] Microscopic Description: Microscopic analysis shows a papillomatous [...] is a butler piece of skin measuring [id number]. The specimen is inked and embedded in toto. dcp/11/01/2022 [facility] [address] [place] [address] Comment on above: Performed By: #### T HYDS #### [address] [place] [address] Shaving Epidermal/Dermalon 0 10-30-2022 Dorian Alicea 10/30/2022 [...] The patient was given instructions for aftercare. [facility] Work Phone: [facility] Work Phone: UA MICROSCOPICon 07-18-2022 RBC None Normal 0-5 [facility] Comment on above: Performed By: #### U AMIC #### [facility] [address] [place] [address] WBC None Normal 0-5 [facility] Comment on above: Performed By: #### U AMIC #### [facility] [address] [place] [address] URINALYSISon 07-18-2022 Appearance (U) CLEAR Normal CLEAR [facility] Comment on above: Performed By: #### U A #### [facility] [address] [place] [address] Bilirubin Ql (U) Negative Normal NEGATIVE [facility] Comment on above: Performed By: #### U A #### [facility] [address] [place] [address] Color (U) YELLOW Normal STRAW,YELLO W [facility] Comment on above: Performed By: #### U A #### [facility] [address] [place] [address] Glucose Ql (U) Negative Normal NEGATIVE [facility] Comment on above: Performed By: #### U A #### [facility] [address] [place] [address] Hemoglobin Ql (U) TRACE Abnormal NEGATIVE [facility] [place] Comment on above: Performed By: #### U A #### [facility] [address] [place] [address] Ketones Ql (U) Negative Normal NEGATIVE [facility] Comment on above: Performed By: #### U A #### [facility] [address] [place] [address] Leukocyte esterase Test strip Ql (U) Negative Normal NEGATIVE [facility] Comment on above: Performed By: #### U A #### [facility] [address] [place] [address] Nitrite Ql (U) Negative Normal NEGATIVE [facility] Comment on above: Performed By: #### U A #### [facility] [address] [place] [address] pH (U) 7.0 [pH] Normal 5.0 - 8.0 [facility] Comment on above: Performed By: #### U A #### [facility] [address] [place] [address] Protein Ql (U) Negative Normal NEGATIVE [facility] Comment on above: Performed By: #### U A #### [facility] [address] [place] [address] Specific gravity (U) [Rel density] 1.025 Normal 1.005 - 1.035 [facility] Comment on above: Performed By: #### U A #### [facility] [address] [place] [address] Urobilinogen (U) [Mass/Vol] mg/dL Normal 0.0 - 1.9 [facility] Comment on above: Performed By: #### U A #### [facility] [address] [place] [address] Urinalysison 07-18-2022 Color (U) YELLOW See Below [facility] Work Phone: Comment on above: Reference Range: STR AW,YELLOW Glucose Ql (U) Negative NEGATIVE -[facility] Work Phone: Ketones Ql (U) Negative NEGATIVE [facility] Work Phone: Leukocyte esterase Test strip Ql (U) Negative NEGATIVE -[facility] Work Phone: pH (U) 7.0 [pH] 5.0 - 8.0 [facility] Work Phone: Protein (U) [Mass/Vol] Negative NEGATIVE [facility] Work Phone: RBC (U) [#/Vol] TRACE Abnormal NEGATIVE -[facility] Work Phone: Specific gravity (U) [Rel density] 1.025 1 See Below [facility] Work Phone: Comment on above: Reference Range: 1.0 05 - 1.035 Urinalysis Negative NEGATIVE [facility] Work Phone: Urinalysis <2.0 0.0 - 1.9 [facility] Work Phone: Urinalysis CLEAR CLEAR [facility] Work Phone: Urinalysis, Microscopicon Urinalysis, Microscopic None 0-5 M [facility] Work Phone: CBC AND DIFFERENTIALon 07-17 % AUTOMATED IMMATURE GRAN 0.5 % Normal 0.0 - 0.9 [facility] Comment on above: Result Comment: Charo ture Granulocyte Count (IG) includes promyelocytes, myelocytes and metamyelocytes but does not include bands. Percent differential counts (%) should be interpreted in the context of the absolute cell counts (cells/L). Performed By: #### C BCDF #### [facility] [address] [place] [address] Basophils (Bld) [#/Vol] 0.03 10*3/uL Normal 0.00 - 0.[address] [facility] Comment on above: Performed By: #### C BCDF #### [facility] [address] [place] [address] Eosinophils (Bld) [#/Vol] 0.18 10*3/uL Normal 0.00 - 0.40 [facility] Comment on above: Performed By: #### C BCDF #### [facility] [address] [place] [address] Eosinophils/100 WBC (Bld) 2.8 % Normal 0.0 - 6.0 [facility] Comment on above: Performed By: #### C BCDF #### [facility] [address] [place] [address] Lymphocytes (Bld) [#/Vol] 1.45 10*3/uL Normal 0.80 - 3.00 [facility] Comment on above: Performed By: #### C BCDF #### [facility] [address] [place] [address] Monocytes (Bld) [#/Vol] 0.66 10*3/uL Normal 0.05 - 0.[address] [facility] Comment on above: Performed By: #### C BCDF #### [facility] [address] [place] [address] Neutrophils (Bld) [#/Vol] 4.08 10*3/uL Normal 1.60 - 5.50 [facility] Comment on above: Performed By: #### C BCDF #### [facility] [address] [place] [address] NUCLEATED RBC 0.0 /100 WBC Normal 0.0-0.0 [facility] Comment on above: Performed By: #### C BCDF #### [facility] [address] [place] [address] RBC 4.48 x10E12/L Normal 4.00 - 5.20 [facility] Comment on above: Performed By: #### C BCDF #### [facility] [address] [place] [address] COMPREHENSIVE PANELon 2022 Albumin [Mass/Vol] 4.0 g/dL Normal 3.4 - 5.0 [facility] Comment on above: Performed By: #### C MP #### [facility] [address] [place] [address] ALP [Catalytic activity/Vol] 89 U/L Normal 33 - 136 [facility] Work Phone: Comment on above: Performed By: #### C MP #### [facility] [address] [place] [address] ALT [Catalytic activity/Vol] 15 U/L Normal 7 - 45 [facility] Comment on above: Result Comment: Suzanne ents treated with Sulfasalazine may generate falsely decreased results for ALT. Performed By: #### C MP #### [facility] [address] [place] [address] Anion gap [Moles/Vol] 12 mmol/L Normal 10 - 20 [facility] Work Phone: Comment on above: Performed By: #### C MP #### [facility] [address] [place] [address] AST [Catalytic activity/Vol] 17 U/L Normal 9 - 39 [facility] Comment on above: Performed By: #### C MP #### [facility] [address] [place] [address] Bilirubin [Mass/Vol] 0.7 mg/dL Normal 0.0 - 1.2 [facility] Work Phone: Comment on above: Performed By: #### C MP #### [facility] [address] [place] [address] Calcium [Mass/Vol] 9.3 mg/dL Normal 8.6 - 10.6 [facility] Work Phone: Comment on above: Performed By: #### C MP #### [facility] [address] [place] [address] Chloride [Moles/Vol] 105 mmol/L Normal 98 - 107 [facility] Work Phone: Comment on above: Performed By: #### C MP #### [facility] [address] [place] [address] Creatinine [Mass/Vol] 0.66 mg/dL Normal 0.50 - 1.05 [facility] Work Phone: Comment on above: Reference Range: 0.5 0 - 1.05 Performed By: #### C MP #### [facility] [address] [place] [address] eGFR FEMALE >90 Normal >90 [facility] Comment on above: Result Comment: CALC ULATIONS OF ESTIMATED GFR ARE PERFORMED USING THE 2020 CKD-EPI STUDY REFIT EQUATION WITHOUT THE RACE VARIABLE FOR THE IDMS-TRACEABLE CREATININE METHODS. https://jasn.asnjournals.org/content//ASN.2020 197810 Performed By: #### C MP #### [facility] [address] [place] [address] Glucose [Mass/Vol] 78 mg/dL Normal 74 - 99 [facility] Work Phone: Comment on above: Performed By: #### C MP #### [place] [address] [place] [address] HCO3 (Bld) [Moles/Vol] 31 mmol/L Normal 21 - 32 [facility] Comment on above: Performed By: #### C MP #### [facility] [address] [place] [address] Potassium [Moles/Vol] 4.2 mmol/L Normal 3.5 - 5.3 [facility] Work Phone: Comment on above: Performed By: #### C MP #### [facility] [address] [place] [address] Protein [Mass/Vol] 6.7 g/dL Normal 6.4 - 8.2 [facility] Work Phone: Comment on above: Performed By: #### C MP #### [facility] [address] [place] [address] Sodium [Moles/Vol] 144 mmol/L Normal 136 - 145 [facility] Work Phone: Comment on above: Performed By: #### C MP #### [facility] [address] [place] [address] Urea nitrogen [Mass/Vol] 15 mg/dL Normal 6 - 23 [facility] Work Phone: Comment on above: Performed By: #### C MP #### [facility] [address] [place] [address] Complete Blood Count + Diffe harriettnagifarheen 07-17-2022 Basophils/100 WBC (Bld) 0.5 % Normal 0.0 - 2.0 M [facility] Work Phone: Comment on above: Performed By: #### C BCDF #### [facility] [address] [place] [address] Erythrocyte distribution width (RBC) [Ratio] 14.1 % Normal 11.5 - 14.5 [facility] Work Phone: Comment on above: Reference Range: 11. 5 - 14.5 Performed By: #### C BCDF #### [facility] [address] [place] [address] Hematocrit (Bld) [Volume fraction] 42.8 % Normal 36.0 - 46.0 [facility] Work Phone: Comment on above: Reference Range: 36. 0 - 46.0 Performed By: #### C BCDF #### [facility] [address] [place] [address] Hemoglobin (Bld) [Mass/Vol] 13.5 g/dL Normal 12.0 - 16.0 [facility] Work Phone: Comment on above: Reference Range: 12. 0 - 16.0 Performed By: #### C BCDF #### [facility] [address] [place] [address] Lymphocytes/100 WBC (Bld) 22.6 % Normal 13.0 - 44.0 [facility] Work Phone: Comment on above: Reference Range: 13. 0 - 44.0 Performed By: #### C BCDF #### [facility] [address] [place] [address] MCHC (RBC) [Mass/Vol] 31.5 g/dL Low 32.0 - 36.0 [facility] Work Phone: Comment on above: Reference Range: 32. 0 - 36.0 Performed By: #### C BCDF #### [facility] [address] [place] [address] MCV (RBC) [Entitic vol] 96 fL Normal 80 - 100 M [facility] Work Phone: Comment on above: Performed By: #### C BCDF #### [facility] [address] [place] [address] Monocytes/100 WBC (Bld) 10.3 % Normal 2.0 - 10.0 M [facility] Work Phone: Comment on above: Performed By: #### C BCDF #### [facility] [address] [place] [address] Neutrophils/100 WBC (Bld) 63.3 % Normal 40.0 - 80.0 [facility] Work Phone: Comment on above: Reference Range: 40. 0 - 80.0 Performed By: #### C BCDF #### [facility] [address] [place] [address] Platelets (Bld) [#/Vol] 208 10*3/uL Normal 150 - 450 [facility] Work Phone: Comment on above: Performed By: #### C BCDF #### [facility] [address] [place] [address] WBC (Bld) [#/Vol] 6.4 10*3/uL Normal 4.4 - 11.3 [facility] Work Phone: Comment on above: Performed By: #### C BCDF #### [facility] [address] [place] [address] RBC (Bld) [#/Vol] 4.48 {x10E12/L} See Below [facility] Work Phone: Comment on above: Reference Range: 4.0 0 - 5.20 Complete Blood Count + Differential 0.03 {x10E9/L} See Below [facility] Work Phone: Comment on above: Reference Range: 0.0 0 - 0.10 Complete Blood Count + Differential 0.18 {x10E9/L} See Below [facility] Work Phone: Comment on above: Reference Range: 0.0 0 - 0.40 Complete Blood Count + Differential 0.66 {x10E9/L} See Below [facility] Work Phone: Comment on above: Reference Range: 0.0 5 - 0.80 Complete Blood Count + Differential 1.45 {x10E9/L} See Below [facility] Work Phone: Comment on above: Reference Range: 0.8 0 - 3.00 Complete Blood Count + Differential 4.08 {x10E9/L} See Below [facility] Work Phone: Comment on above: Reference Range: 1.6 0 - 5.50 Complete Blood Count + Differential 2.8 % 0.0 - 6.0 [facility] Work Phone: Complete Blood Count + Differential 0.5 % 0.0 - 0.9 [facility] Work Phone: Comment on above: Immature Granulocyte Count (IG) includes promyelocytes, myelocytes and metamyelocytes but does not include bands. Percent differential counts (%) should be interpreted in the context of the absolute cell counts (cells/L). Complete Blood Count + Differential 0.0 {/100_WBC} 0.0-0.0 [facility] Work Phone: LIPID PANEL (CORONARY RISK 2 )on 07-17-2022 Cholesterol in VLDL [Mass/Vol] 18 mg/dL Normal 0 - 40 [facility] Comment on above: Performed By: #### L IPID #### [facility] [address] [place] [id number] Laboratory - Chemistry and C hemistry - challengeon 07-17-2022 Albumin BCP dye [Mass/Vol] 4.0 g/dL 3.4 - 5.0 [facility] Work Phone: ALT With P-5'-P [Catalytic activity/Vol] 15 U/L 7 - 45 [facility] Work Phone: Comment on above: Patients treated wit h Sulfasalazine may generate falsely decreased results for ALT. AST With P-5'-P [Catalytic activity/Vol] 17 U/L 9 - 39 [facility] Work Phone: CO2 [Moles/Vol] 31 mmol/L - [facility] Work Phone: Lipid Panelon 07-17-2022 Cholesterol [Mass/Vol] 151 mg/dL Normal 0 - 199 [facility] Work Phone: Comment [...] dosing. Performed By: #### L IPID #### [facility] [address] [place] [address] Cholesterol in HDL [Mass/Vol] 52.6 mg/dL Normal [facility] Work Phone: Comment on above: [...] Performed By: #### L IPID #### [facility] [address] [place] [address] Cholesterol in LDL [Mass/Vol] 80 mg/dL Normal 0 - 99 [facility] Work Phone: Comment on above: . [...] Performed By: #### L IPID #### [facility] [address] [place] [address] Cholesterol.total/Morenita sterol in HDL [Mass ratio] 2.9 {ratio} Normal [facility] Work Phone: Comment on above: REF VALUESDESIRABLE < 3.4HIGH RISK > 5.0 Result Comment: REF VALUES DESIRABLE < 3.4 HIGH RISK > 5.0 Performed By: #### L IPID #### [facility] [address] [place] [address] Triglyceride [Mass/Vol] 90 mg/dL Normal 0 - 149 M [facility] Work Phone: Comment on above: . AGE [...] Performed By: #### L IPID #### [facility] [address] [place] [address] Lipid Panel 18 mg/dL 0 - 40 [facility] Work Phone: No Panel Informationon 07-17 >90 >90 [facility] Work Phone: Comment on above: CALCULATIONS OF MATEO MATED GFR ARE PERFORMED USING THE 2020 CKD-EPI STUDY REFIT EQUATION WITHOUT THE RACE VARIABLE FOR THE IDMS-TRACEABLE CREATININE METHODS.https://jasn.asnjournals.org/content// ASN.3210676065 Not at all - 0 [facility] Work Phone: Several days - 1 [facility] Work Phone: Minimal Anxiety [facility] Work Phone: Not difficult at all [facility] Work Phone: Comment on above: How difficult have t hose problems made it for you to do your work, take care of things at home, or get along with other people? 1 1 [facility] Work Phone: Comment on above: [...] PHQ-9on 07-17-2022 Adult depression screening assessment No [facility] Work Phone: Adult depression screening assessment Yes [facility] Work Phone: PHQ-9 0-Not at all [facility] Work Phone: PHQ-9 Large [facility] Work Phone: TSH WITH REFLEX TO FREE T4 I F ABNORMALon 07-17-2022 TSH Qn 2.65 m[IU]/L Normal 0.44 - 3.98 [facility] Work Phone: Comment on above: Reference Range: 0.4 4 - 3.98 TSH testing is performed using different testing methodology at [facility] than at [facility]. Direct result comparisons should only be made within the same method. Result Comment: TSH testing is performed using different testing methodology at [facility] than at [facility]. Direct result comparisons should only be made within the same method. Performed By: #### T HYDS #### [facility] [address] [place] [id number] URINALYSISon 07-17-2022 ASCORBIC ACID Canceled Normal [facility] Comment on above: Order Comment: [...] Performed By: #### U A #### [facility] [address] [place] [address] Bilirubin Ql (U) Canceled Normal [facility] Comment on above: Order Comment: TEST URINALYSIS WAS CANCELLED, 07/17/2022 08:36 pt to return w sample. Performed By: #### U A #### [facility] [address] [place] [address] Hemoglobin Ql (U) Canceled Normal [facility] [place] Comment on above: Order Comment: TEST URINALYSIS WAS CANCELLED, 07/17/2022 08:36 pt to return w sample. Performed By: #### U A #### [facility] [address] [place] [address] Nitrite Ql (U) Canceled Normal [facility] Comment on above: Order Comment: TEST URINALYSIS WAS CANCELLED, 07/17/2022 08:36 pt to return w sample. Performed By: #### U A #### [facility] [address] [place] [address] [facility] Comment on above: Order Comment: TEST URINALYSIS WAS CANCELLED, 07/17/2022 08:36 pt to return w sample. Performed By: #### U A #### [facility] [address] [place] [address] Protein Ql (U) Canceled Normal [facility] Comment on above: Order Comment: TEST URINALYSIS WAS CANCELLED, 07/17/2022 08:36 pt to return w sample. Performed By: #### U A #### [facility] [address] [place] [address] [facility] Comment on above: Order Comment: TEST URINALYSIS WAS CANCELLED, 07/17/2022 08:36 pt to return w sample. Performed By: #### U A #### [facility] [address] [place] [address] Urinalysison 07-17-2022 Appearance (U) Canceled Normal [facility] Work Phone: Comment on above: Order Comment: TEST URINALYSIS WAS CANCELLED, 07/17/2022 08:36 pt to return w sample. Performed By: #### U A #### [facility] [address] [place] [address] Color (U) Canceled Normal [facility] Work Phone: Comment on above: Order Comment: TEST URINALYSIS WAS CANCELLED, 07/17/2022 08:36 pt to return w sample. Performed By: #### U A #### [facility] [address] [place] [address] Glucose Ql (U) Canceled Normal [facility] Work Phone: Comment on above: Order Comment: TEST URINALYSIS WAS CANCELLED, 07/17/2022 08:36 pt to return w sample. Performed By: #### U A #### [facility] [address] [place] [address] Ketones Ql (U) Canceled Normal [facility] Work Phone: Comment on above: Order Comment: TEST URINALYSIS WAS CANCELLED, 07/17/2022 08:36 pt to return w sample. Performed By: #### U A #### [facility] [address] [place] [address] Leukocyte esterase Test strip Ql (U) Canceled Normal [facility] Work Phone: Comment on above: Order Comment: TEST URINALYSIS WAS CANCELLED, 07/17/2022 08:36 pt to return w sample. Performed By: #### U A #### [facility] [address] [place] [address] Specific gravity (U) [Rel density] Canceled Normal [facility] Work Phone: Comment on above: Order Comment: TEST URINALYSIS WAS CANCELLED, 07/17/2022 08:36 pt to return w sample. Performed By: #### U A #### [facility] [address] [place] [address] Protein (U) [Mass/Vol] Canceled [facility] Work Phone: RBC (U) [#/Vol] Canceled [facility] Work Phone: Urinalysis Canceled [facility] Work Phone: Comment on above: Concentrations > = 2 0 mg/dL of ascorbic acid can be expected to cause strong interference in the reactions testing for glucose, nitrite and blood. It is recommended to discontinue Vitamin C administration and retest in 10 hours. Blood Pressure Cuff Sizeon 0 01-10-2022 Adult depression screening assessment No [facility] Work Phone: Blood Pressure Cuff Size Large [facility] Work Phone: No Panel Informationon 01-10 Not at all - 0 [facility] Work Phone: Minimal Anxiety [facility] Work Phone: 0 1 [facility] Work Phone: Comment on above: Over the [...] June, all reassuring. 'Scores and Scales' PHQ-9 [id number] 07:39AM PHQ-9 Depression Severity PHQ-9 #1. Little [...] problem list based on total score)4 CLIFTON-7 [id number] CLIFTON-7 Total Score0 Feeling nervous, anxious or [...] included)... Normal [facility] LEE SCREENINGon 09-21-2021 [facility] Radiologyon 09-21-2021 MG Breast Screening * * *Final Report* * * DATE OF EXAM: Sep 21 2021 8:28AM [facility] SCREENING / PROCEDURE REASON: Z12.31 MAMMOGRAM SCREENING * * * * Physician Interpretation * * * * #[id number] - [facility] SCREENING BILATERAL DIGITA Normal [facility] Work Phone: Blood Pressure Cuff Sizeon 0 07-12-2021 Blood Pressure Cuff Size Adult [facility] Work Phone: Laboratory - Chemistry and C hemistry - challengeon 07-12-2021 Albumin BCP dye [Mass/Vol] 4.1 g/dL 3.4 - 5.0 [facility] Work Phone: ALP [Catalytic activity/Vol] 80 U/L 33 - 136 [facility] Work Phone: ALT With P-5'-P [Catalytic activity/Vol] 13 U/L 7 - 45 [facility] Work Phone: Comment on above: Patients treated wit h Sulfasalazine may generate falsely decreased results for ALT. Anion gap [Moles/Vol] 12 mmol/L 10 - 20 [facility] Work Phone: AST With P-5'-P [Catalytic activity/Vol] 15 U/L 9 - 39 [facility] Work Phone: Bilirubin [Mass/Vol] 0.6 mg/dL 0.0 - 1.2 [facility] Work Phone: Calcium [Mass/Vol] 9.0 mg/dL 8.6 - 10.6 [facility] Work Phone: Chloride [Moles/Vol] 105 mmol/L 98 - 107 [facility] Work Phone: CO2 [Moles/Vol] 31 mmol/L 21 - 32 [facility] Work Phone: Creatinine [Mass/Vol] 0.63 mg/dL See Below [facility] Work Phone: Comment on above: Reference Range: 0.5 0 - 1.05 Glucose [Mass/Vol] 85 mg/dL 74 - 99 [facility] Work Phone: Potassium [Moles/Vol] 4.1 mmol/L 3.5 - 5.3 [facility] Work Phone: Protein [Mass/Vol] 6.6 g/dL 6.4 - 8.2 [facility] Work Phone: Sodium [Moles/Vol] 144 mmol/L 136 - 145 [facility] Work Phone: Urea nitrogen [Mass/Vol] 18 mg/dL 6 - 23 [facility] Work Phone: Medicare Annual Wellness Vis iton 07-12-2021 Medicare Annual Wellness Visit *Chief Complaint Medicare Wellness, fasting, high dose flu shot , brochure given, consent signed Follow up depression/anxiety Influenza Vaccine No to all questions Patient answered all questions prior to immunization 1: Have you ever had Guillain-Castell syndrome? (a viral illness resulting in neurological [...] above in HPI. 'Scores and Scales' PHQ-9 [id number] 07:[id number] 06:50AM PHQ-9 Depression Severity IO PHQ2 PHQ-9 [...] Touchworks No Panel Informationon 07-12 >90 >90 [facility] Work Phone: Comment on above: CALCULATIONS OF MATEO MATED GFR ARE PERFORMED USING THE 2020 CKD-EPI STUDY REFIT EQUATION WITHOUT THE RACE VARIABLE FOR THE IDMS-TRACEABLE CREATININE METHODS.https://jasn.asnjournals.org/content/early// ASN.3395297229 PHQ-9on 07-12-2021 PHQ-9 1-Several days [facility] Work Phone: PHQ-9 0-Not at all [facility] Work Phone: PHQ-9 Not difficult at all [facility] Work Phone: Blood Pressure Cuff Sizeon 0 01-10-2021 Blood Pressure Cuff Size Large [facility] Work Phone: Otheron 08-15-2020 MG Breast screening * * *Final Report* * *DATE OF EXAM: Aug 15 2020 10:11AM [facility] 0581 - LEE SCREENING / REASON: Z12.31 SCREENING * * * * Physician Interpretation * * * * #[id number] - LEE SCREENINGBILATERAL DIGITAL SCREENING MAMMOGRAM WITH CAD: 08/15/2020HISTORY: Z06.22 Screening / Screening Mammogram-Patient reports NO symptoms.RESULT:TECHN IQUE: The study was acquired using full field digital technology and interpreted from soft copy.Current study was also evaluated with a Computer Aided Detection (CAD).Comparison is made to exams dated: 08/13/2019 mammogram, 06/25/2018 mammogram, and 06/06/2017 mammogram - [facility]. There are scattered fibroglandular elements in both breasts.There are benign post operative findings in the left breast.No significant masses, calcifications, or other findings are seen in either breast.There has been no significant interval change.IMPRESSION: BENIGN FINDINGThere is no mammographic evidence of malignancy. A 1 year screening mammogram is recommended.Marcos Aguilar/cherad:08/15/19 11:03:31Imaging Technologist(s): RT Dori(R)(M), [facility]: Normal over 40Mammogram BI-RADS: 2 Benign [...] Health, Family Medicine, and Medical/Surgical Oncology, the [facility] has carefully reviewed the data and [...] providers when to stop screening mammograms.Transcript ionist: GrisTransric Date/Time: Aug 15 2020 9:59ADictated by : MARCOS CAO MDThis examination was interpreted and the report reviewed and electronically signed by: MARCOS CAO MD on Aug 15 2020 11:03AM [id number]\\[id number]\\[id number]_I DC Normal [facility] Work Phone: Comment on above: Ordering Provider: Dorian avid Dulle Antithyroid Perox. Abon 07- TPO Ab Qn [IU]/mL [facility] Work Phone: Comment on above: Negative: <=60 U/mLP ositive: >60 U/mL T3 - Free Triiodothyronine, Serumon 01-06-2020 Free T3 [Mass/Vol] 2.8 pg/mL 2.3 - 4.2 PIETROTrevor mesa [facility] Work Phone: T4 - Free Thyroxine, Serumon 01-06-2020 Free T4 [Mass/Vol] 0.85 ng/dL See Below Omar mesa [facility] Work Phone: Comment on above: Reference Range: 0.7 8 - 1.48 Thyroxine Free testing is performed using different testing methodology at [facility] than at other [facility]. Direct result comparisons should only be made within the same method. TSH - Thyroid Stimulating Ho rmone, Serumon 01-06-2020 TSH Qn 4.54 {mIU/L} above high threshold See Below PI[facility]ROChristopher [facility] Work Phone: Comment on above: Reference Range: 0.4 4 - 3.98 TSH testing is performed using different testing methodology at [facility] than at other [facility]. Direct result comparisons should only be made within the same method. Vital Signs Date Time Vital Sign Value Performing Clinician Facility 01-03-2025 10:36-0400 Body mass index (BMI) [Ratio] 33.25 kg/m2 Sara Ramey APRN.ANALI Work Phone: [facility] 01-03-2025 10:36-0400 Body weight 93.44 kg Sara Ramey OPHTHALMOLOGY TECHNICIAN.PEELER OPERATOR Work Phone: [facility] 01-03-2025 10:36-0400 Diastolic blood pressure 71 mm[Hg] Sara Ramey OPHTHALMOLOGY TECHNICIAN.PEELER OPERATOR Work Phone: [facility] 01-03-2025 10:36-0400 Heart rate 76 /min Sara Ramey OPHTHALMOLOGY TECHNICIAN.PEELER OPERATOR Work Phone: [facility] 01-03-2025 10:36-0400 Respiratory rate 16 /min Sara Ramey OPHTHALMOLOGY TECHNICIAN.PEELER OPERATOR Work Phone: [facility] 01-03-2025 10:36-0400 Systolic blood pressure 103 mm[Hg] Sara Karoline BUENOPEELER OPERATOR Work Phone: [facility] 09-17-2024 14:10-0400 Body height 165.1 cm Cristina Stanec DO Work Phone: [facility] 09-17-2024 14:10-0400 Body mass index (BMI) [Ratio] 34.5 kg/m2 Cristina Stanec DO Work Phone: [facility] 09-17-2024 14:10-0400 Body temperature 98.01 [degF] Cristina Stanec DO Work Phone: [facility] 09-17-2024 14:10-0400 Body weight 94.03 kg Cristina Stanec DO Work Phone: [facility] 09-17-2024 14:10-0400 Diastolic blood pressure 73 mm[Hg] Cristina Stanec DO Work Phone: [facility] 09-17-2024 14:10-0400 Heart rate 73 /min Cristina Stanec DO Work Phone: [facility] 09-17-2024 14:10-0400 SaO2% (BldA) [Mass fraction] 94 % Cristina Stanec DO Work Phone: [facility] 09-17-2024 14:10-0400 Systolic blood pressure 109 mm[Hg] Cristina Stanec DO Work Phone: [facility] 08-10-2024 09:28-0500 Body height 165.1 cm Stevie Vanessa DO Work Phone: [email or web address] [facility] 08-10-2024 09:28-0500 Body mass index (BMI) [Ratio] 34.1 kg/m2 Stevie Vanessa DO Work Phone: [employer] 08-10-2024 09:28-0500 Body temperature 98.91 [degF] Stevie Vanessa DO Work Phone: [facility] 08-10-2024 09:28-0500 Body weight 92.94 kg Stevie Vanessa DO Work Phone: [facility] 08-10-2024 09:28-0500 Diastolic blood pressure 59 mm[Hg] Stevie Vanessa DO Work Phone: [facility] 08-10-2024 09:28-0500 Heart rate 76 /min Stevie Vanessa DO Work Phone: [facility] 08-10-2024 09:28-0500 SaO2% (BldA) [Mass fraction] 97 % Stevie Vanessa DO Work Phone: [facility] 08-10-2024 09:28-0500 Systolic blood pressure 105 mm[Hg] Tsevie Vanessa DO Work Phone: [facility] 03-16-2024 13:57-0400 Body height 165.1 cm Stevie Vanessa DO Work Phone: [facility] 03-16-2024 13:57-0400 Body mass index (BMI) [Ratio] 33.46 kg/m2 Stevie Vanessa DO Work Phone: [facility] 03-16-2024 13:57-0400 Body temperature 97.7 [degF] Stevie Vanessa DO Work Phone: [facility] 03-16-2024 13:57-0400 Body weight 91.22 kg Stevie Vanessa DO Work Phone: [facility] 03-16-2024 13:57-0400 Diastolic blood pressure 82 mm[Hg] Stevie Vanessa DO Work Phone: [facility] 03-16-2024 13:57-0400 Heart rate 82 /min Stevie Vanessa DO Work Phone: [facility] 03-16-2024 13:57-0400 Respiratory rate 20 /min Stevie Vanessa DO Work Phone: [facility] 03-16-2024 13:57-0400 SaO2% (BldA) [Mass fraction] 96 % Stevie Vanessa DO Work Phone: [facility] 03-16-2024 13:57-0400 Systolic blood pressure 127 mm[Hg] Stevie Vanessa DO Work Phone: [facility] 02-19-2024 09:13-0400 Body height 165.1 cm Torrie Choi MD Work Phone: [facility] 02-19-2024 09:13-0400 Body mass index (BMI) [Ratio] 34.45 kg/m2 Torrie Choi MD Work Phone: [facility] 02-19-2024 09:13-0400 Body weight 93.89 kg Torrie Choi MD Work Phone: [facility] 02-19-2024 09:13-0400 Diastolic blood pressure 84 mm[Hg] Torrie Choi MD Work Phone: [facility] 02-19-2024 09:13-0400 Heart rate 79 /min Torrie Choi MD Work Phone: [facility] 02-19-2024 09:13-0400 SaO2% (BldA) [Mass fraction] 97 % Torrie Choi MD Work Phone: [facility] 02-19-2024 09:13-0400 Systolic blood pressure 124 mm[Hg] Torrie Choi MD Work Phone: [facility] 02-18-2024 06:38-0400 Body mass index (BMI) [Ratio] 34.61 kg/m2 Marie Devi MD Work Phone: [facility] 02-18-2024 06:38-0400 Body temperature 98.1 [degF] Marie Devi MD Work Phone: [facility] 02-18-2024 06:38-0400 Body weight 94.35 kg Marie Devi MD Work Phone: [facility] 02-18-2024 06:38-0400 Diastolic blood pressure 71 mm[Hg] Marie Devi MD Work Phone: [facility] 02-18-2024 06:38-0400 Heart rate 72 /min Marie Devi MD Work Phone: [facility] 02-18-2024 06:38-0400 SaO2% (BldA) [Mass fraction] 91 % Marie Devi MD Work Phone: [facility] 02-18-2024 06:38-0400 Systolic blood pressure 109 mm[Hg] Marie Devi MD Work Phone: [facility] 02-03-2024 09:30-0400 Body mass index (BMI) [Ratio] 36.17 kg/m2 Stevie Vanessa DO Work Phone: [facility] 02-03-2024 09:30-0400 Body temperature 98.4 [degF] Stevie Vanessa DO Work Phone: [facility] 02-03-2024 09:30-0400 Body weight 95.57 kg Stevie Vanessa DO Work Phone: [facility] 02-03-2024 09:30-0400 Diastolic blood pressure 63 mm[Hg] Stevie Vanessa DO Work Phone: [facility] 02-03-2024 09:30-0400 Heart rate 80 /min Stevie Vanessa DO Work Phone: [employer] 02-03-2024 09:30-0400 Respiratory rate 18 /min Stevie Vanessa DO Work Phone: [employer] 02-03-2024 09:30-0400 SaO2% (BldA) [Mass fraction] 94 % Stevie Vanessa DO Work Phone: [employer] 02-03-2024 09:30-0400 Systolic blood pressure 124 mm[Hg] Stevie Vanessa DO Work Phone: [email or web address] [email or web address] 11-11-2023 14:36-0400 Body mass index (BMI) [Ratio] 34.46 kg/m2 Marie Devi MD Work Phone: [facility] 11-11-2023 14:36-0400 Body temperature 98.49 [degF] Marie Devi MD Work Phone: [facility] 11-11-2023 14:36-0400 Body weight 93.94 kg Marie Devi MD Work Phone: [facility] 11-11-2023 14:36-0400 Diastolic blood pressure 77 mm[Hg] Marie Devi MD Work Phone: [facility] 11-11-2023 14:36-0400 Heart rate 82 /min Marie Devi MD Work Phone: [facility] 11-11-2023 14:36-0400 SaO2% (BldA) [Mass fraction] 93 % Marie Devi MD Work Phone: [facility] 11-11-2023 14:36-0400 Systolic blood pressure 130 mm[Hg] Marie Devi MD Work Phone: [facility] 11-04-2023 09:43-0400 Body height 162.6 cm Stevie Vanessa DO Work Phone: [email or web address] [email or web address] 11-04-2023 09:43-0400 Body mass index (BMI) [Ratio] 34.67 kg/m2 Stevie Vanessa DO Work Phone: [email or web address] [email or web address] 11-04-2023 09:43-0400 Body temperature 99 [degF] Stevie Vanessa DO Work Phone: [email or web address] [email or web address] 11-04-2023 09:43-0400 Body weight 91.63 kg Stevie Vanessa DO Work Phone: [email or web address] [email or web address] 11-04-2023 09:43-0400 Diastolic blood pressure 71 mm[Hg] Stevie Vanessa DO Work Phone: [facility] 11-04-2023 09:43-0400 Heart rate 81 /min Stevie Vanessa DO Work Phone: [facility] 11-04-2023 09:43-0400 SaO2% (BldA) [Mass fraction] 93 % Stevie Schumacherel DO Work Phone: [facility] 11-04-2023 09:43-0400 Systolic blood pressure 117 mm[Hg] Stevie Schulteebel DO Work Phone: [facility] 09-23-2023 10:12-0400 Body temperature 98.2 [degF] Chair 3 [facility] 09-23-2023 10:12-0400 Diastolic blood pressure 74 mm[Hg] Chair 3 [facility] 09-23-2023 10:12-0400 Heart rate 72 /min Chair 3 [facility] 09-23-2023 10:12-0400 Respiratory rate 20 /min Chair 3 [facility] 09-23-2023 10:12-0400 SaO2% (BldA) [Mass fraction] 95 % Chair 3 [facility] 09-23-2023 10:12-0400 Systolic blood pressure 125 mm[Hg] Chair 3 [facility] 09-23-2023 08:06-0400 Body mass index (BMI) [Ratio] 35.58 kg/m2 Chair 3 [facility] 09-23-2023 08:06-0400 Body weight 94.03 kg Chair 3 [facility] 09-18-2023 09:44-0400 Body height 162.6 cm Stevie Schumacherel DO Work Phone: [facility] 09-18-2023 09:44-0400 Body mass index (BMI) [Ratio] 35.87 kg/m2 Stevie Schulteebel DO Work Phone: [facility] 09-18-2023 09:44-0400 Body weight 94.8 kg Stevie Schumacherel DO Work Phone: [facility] 09-12-2023 13:17-0400 Body height 162.6 cm Jarrell Diego MD Work Phone: [facility] 09-12-2023 13:17-0400 Body mass index (BMI) [Ratio] 35.91 kg/m2 Jarrell Diego MD Work Phone: [facility] 09-12-2023 13:17-0400 Body temperature 96.91 [degF] Jarrell Diego MD Work Phone: [facility] 09-12-2023 13:17-0400 Body weight 94.89 kg Jarrell Diego MD Work Phone: [facility] 09-12-2023 13:17-0400 Diastolic blood pressure 80 mm[Hg] Jarrell Diego MD Work Phone: [facility] 09-12-2023 13:17-0400 Heart rate 94 /min Jarrell Deigo MD Work Phone: [facility] 09-12-2023 13:17-0400 Respiratory rate 16 /min Jarrell Diego MD Work Phone: [facility] 09-12-2023 13:17-0400 SaO2% (BldA) [Mass fraction] 96 % Jarrell Diego MD Work Phone: [facility] 09-12-2023 13:17-0400 Systolic blood pressure 138 mm[Hg] Jarrell Diego MD Work Phone: [facility] 09-02-2023 11:28-0400 Body temperature 97.81 [degF] Chair 5 [facility] 09-02-2023 11:28-0400 Diastolic blood pressure 75 mm[Hg] Chair 5 [facility] 09-02-2023 11:28-0400 Heart rate 77 /min Chair 5 [facility] 09-02-2023 11:28-0400 Respiratory rate 14 /min Chair 5 [facility] 09-02-2023 11:28-0400 SaO2% (BldA) [Mass fraction] 94 % Chair 5 [facility] 09-02-2023 11:28-0400 Systolic blood pressure 124 mm[Hg] Chair 5 [facility] 09-02-2023 08:51-0400 Body height 165.1 cm Stevie Vanessa DO Work Phone: [facility] 09-02-2023 08:51-0400 Body mass index (BMI) [Ratio] 34.56 kg/m2 Stevie Vanessa DO Work Phone: [facility] 09-02-2023 08:51-0400 Body temperature 97.81 [degF] Stevie Vanessa DO Work Phone: [facility] 09-02-2023 08:51-0400 Body weight 94.21 kg Stevie Vanessa DO Work Phone: [facility] 09-02-2023 08:51-0400 Diastolic blood pressure 71 mm[Hg] Stevie Vanessa DO Work Phone: [facility] 09-02-2023 08:51-0400 Heart rate 89 /min Stevie Vanessa DO Work Phone: [facility] 09-02-2023 08:51-0400 SaO2% (BldA) [Mass fraction] 91 % Stevie Vanessa DO Work Phone: [facility] 09-02-2023 08:51-0400 Systolic blood pressure 125 mm[Hg] Stevie Vanessa DO Work Phone: [facility] 09-02-2023 08:50-0400 Body mass index (BMI) [Ratio] 34.56 kg/m2 Chair 5 [facility] 09-02-2023 08:50-0400 Body weight 94.21 kg Chair 5 [facility] 08-12-2023 10:38-0500 Body temperature 98.29 [degF] Chair 1 [facility] 08-12-2023 10:38-0500 Diastolic blood pressure 87 mm[Hg] Chair 1 [facility] 08-12-2023 10:38-0500 Heart rate 73 /min Chair 1 [facility] 08-12-2023 10:38-0500 Respiratory rate 20 /min Chair 1 [facility] 08-12-2023 10:38-0500 SaO2% (BldA) [Mass fraction] 94 % Chair 1 [facility] 08-12-2023 10:38-0500 Systolic blood pressure 106 mm[Hg] Chair 1 [facility] 08-12-2023 08:09-0500 Body mass index (BMI) [Ratio] 34.21 kg/m2 Chair 1 [facility] 08-12-2023 08:09-0500 Body weight 93.26 kg Chair 1 [facility] 08-05-2023 11:11-0500 Body temperature 98.8 [degF] Chair 1 [facility] 08-05-2023 11:11-0500 Diastolic blood pressure 75 mm[Hg] Chair 1 [facility] 08-05-2023 11:11-0500 Heart rate 91 /min Chair 1 [facility] 08-05-2023 11:11-0500 SaO2% (BldA) [Mass fraction] 93 % Chair 1 [facility] 08-05-2023 11:11-0500 Systolic blood pressure 138 mm[Hg] Chair 1 [facility] 08-05-2023 09:00-0500 Body mass index (BMI) [Ratio] 33.73 kg/m2 Chair 1 [facility] 08-05-2023 09:00-0500 Body weight 91.94 kg Chair 1 [facility] 08-05-2023 09:00-0500 Respiratory rate 18 /min Chair 1 [facility] 07-30-2023 06:49-0500 Body height 165.1 cm Marie Devi MD Work Phone: [facility] 07-30-2023 06:49-0500 Body mass index (BMI) [Ratio] 34.41 kg/m2 Marie Devi MD Work Phone: [facility] 07-30-2023 06:49-0500 Body temperature 97.5 [degF] Marie Devi MD Work Phone: [facility] 07-30-2023 06:49-0500 Body weight 93.8 kg Marie Devi MD Work Phone: [facility] 07-30-2023 06:49-0500 Diastolic blood pressure 72 mm[Hg] Marie Devi MD Work Phone: [facility] 07-30-2023 06:49-0500 Heart rate 86 /min Marie Devi MD Work Phone: [facility] 07-30-2023 06:49-0500 SaO2% (BldA) [Mass fraction] 94 % Marie Devi MD Work Phone: [facility] 07-30-2023 06:49-0500 Systolic blood pressure 108 mm[Hg] Marie Devi MD Work Phone: [facility] 07-15-2023 12:37-0500 Body temperature 97.3 [degF] Chair 5 [facility] 07-15-2023 12:37-0500 Diastolic blood pressure 81 mm[Hg] Chair 5 [facility] 07-15-2023 12:37-0500 Heart rate 77 /min Chair 5 [facility] 07-15-2023 12:37-0500 Respiratory rate 16 /min Chair 5 [facility] 07-15-2023 12:37-0500 SaO2% (BldA) [Mass fraction] 92 % Chair 5 [facility] 07-15-2023 12:37-0500 Systolic blood pressure 140 mm[Hg] Chair 5 [facility] 07-15-2023 10:27-0500 Body mass index (BMI) [Ratio] 33.95 kg/m2 Chair 5 [facility] 07-15-2023 10:27-0500 Body weight 92.53 kg Chair 5 [facility] 07-15-2023 10:09-0500 Body height 165.1 cm Stevie [facility]essa [facility] 07-15-2023 10:09-0500 Body mass index (BMI) [Ratio] 33.95 kg/m2 Stevie Vanessa DO Work Phone: [employer] 07-15-2023 10:09-0500 Body temperature 97.59 [degF] Stevie Vanessa DO Work Phone: [facility] 07-15-2023 10:09-0500 Body weight 92.53 kg Stevie Vanessa DO Work Phone: [facility] 07-15-2023 10:09-0500 Diastolic blood pressure 78 mm[Hg] Stevie Vanessa DO Work Phone: [facility] 07-15-2023 10:09-0500 Heart rate 95 /min Stevie Vanessa DO Work Phone: [facility] 07-15-2023 10:09-0500 SaO2% (BldA) [Mass fraction] 93 % Stevie Vanessa DO Work Phone: [facility] 07-15-2023 10:09-0500 Systolic blood pressure 135 mm[Hg] Stevie Vanessa DO Work Phone: [facility] 07-03-2023 10:27-0500 Body height 165.1 cm Jarrell Diego MD Work Phone: [facility] 07-03-2023 10:27-0500 Body mass index (BMI) [Ratio] 33.22 kg/m2 Jarrell Diego MD Work Phone: [facility] 07-03-2023 10:27-0500 Body temperature 97.7 [degF] Jarrell Diego MD Work Phone: [facility] 07-03-2023 10:27-0500 Body weight 90.54 kg Jarrell Diego MD Work Phone: [facility] 07-03-2023 10:27-0500 Diastolic blood pressure 87 mm[Hg] Jarrell Diego MD Work Phone: [email or web address] [email or web address] 07-03-2023 10:27-0500 Heart rate 84 /min Jarrell Diego MD Work Phone: [email or web address] [email or web address] 07-03-2023 10:27-0500 Respiratory rate 20 /min Jarrell Diego MD Work Phone: [facility] 07-03-2023 10:27-0500 SaO2% (BldA) [Mass fraction] 97 % Jarrell Diego MD Work Phone: [email or web address] [email or web address] 07-03-2023 10:27-0500 Systolic blood pressure 135 mm[Hg] Jarrell Diego MD Work Phone: [email or web address] [email or web address] 06-26-2023 14:47-0500 Body mass index (BMI) [Ratio] 33.3 kg/m2 Marie Devi MD Work Phone: [facility] 06-26-2023 14:47-0500 Body temperature 99 [degF] Marie Devi MD Work Phone: [facility] 06-26-2023 14:47-0500 Body weight 90.77 kg Marie Devi MD Work Phone: [facility] 06-26-2023 14:47-0500 Diastolic blood pressure 72 mm[Hg] Marie Devi MD Work Phone: [facility] 06-26-2023 14:47-0500 Heart rate 85 /min Marie Deiv MD Work Phone: [facility] 06-26-2023 14:47-0500 Respiratory rate 16 /min Marie Devi MD Work Phone: [facility] 06-26-2023 14:47-0500 SaO2% (BldA) [Mass fraction] 92 % Marie Devi MD Work Phone: [facility] 06-26-2023 14:47-0500 Systolic blood pressure 111 mm[Hg] Marie Devi MD Work Phone: [facility] 06-24-2023 12:20-0500 Body temperature 96.4 [degF] Chair 1 [email or web address] [email or web address] 06-24-2023 12:20-0500 Diastolic blood pressure 75 mm[Hg] Chair 1 [email or web address] [email or web address] 06-24-2023 12:20-0500 Heart rate 79 /min Chair 1 [email or web address] [email or web address] 06-24-2023 12:20-0500 Respiratory rate 14 /min Chair 1 [email or web address] [email or web address] 06-24-2023 12:20-0500 SaO2% (BldA) [Mass fraction] 93 % Chair 1 [facility] 06-24-2023 12:20-0500 Systolic blood pressure 129 mm[Hg] Chair 1 [facility] 06-24-2023 08:03-0500 Body height 165.1 cm Stevie Vanessa DO Work Phone: [facility] 06-24-2023 08:03-0500 Body mass index (BMI) [Ratio] 33.45 kg/m2 Stevie Vanessa DO Work Phone: [facility] 06-24-2023 08:03-0500 Body temperature 98.49 [degF] Stevie Vanessa DO Work Phone: [facility] 06-24-2023 08:03-0500 Body weight 91.17 kg Stevie Vanessa DO Work Phone: [facility] 06-24-2023 08:03-0500 Diastolic blood pressure 76 mm[Hg] Stevie Vanessa DO Work Phone: [facility] 06-24-2023 08:03-0500 Heart rate 93 /min Stevie Vanessa DO Work Phone: [facility] 06-24-2023 08:03-0500 SaO2% (BldA) [Mass fraction] 93 % Stevie Vanessa DO Work Phone: [facility] 06-24-2023 08:03-0500 Systolic blood pressure 121 mm[Hg] Stevie Vanessa DO Work Phone: [facility] 06-24-2023 08:01-0500 Body mass index (BMI) [Ratio] 33.45 kg/m2 Chair 1 [facility] 06-24-2023 08:01-0500 Body weight 91.17 kg Chair 1 [facility] 06-13-2023 10:12-0500 Body temperature 97.9 [degF] Chair 3 [facility] 06-13-2023 10:12-0500 Diastolic blood pressure 78 mm[Hg] Chair 3 [facility] 06-13-2023 10:12-0500 Systolic blood pressure 110 mm[Hg] Chair 3 [facility] 06-13-2023 08:40-0500 Heart rate 93 /min Chair 3 [facility] 06-13-2023 08:40-0500 Respiratory rate 16 /min Chair 3 [facility] 06-13-2023 08:40-0500 SaO2% (BldA) [Mass fraction] 92 % Chair 3 [facility] 06-03-2023 14:43-0500 Body temperature 97 [degF] Chair 5 [facility] 06-03-2023 14:43-0500 Diastolic blood pressure 71 mm[Hg] Chair 5 [facility] 06-03-2023 14:43-0500 Heart rate 78 /min Chair 5 [facility] 06-03-2023 14:43-0500 Respiratory rate 18 /min Chair 5 [facility] 06-03-2023 14:43-0500 SaO2% (BldA) [Mass fraction] 93 % Chair 5 [facility] 06-03-2023 14:43-0500 Systolic blood pressure 113 mm[Hg] Chair 5 [facility] 06-03-2023 10:11-0500 Body height 165.1 cm Stevie Vanessa DO Work Phone: [facility] 06-03-2023 10:11-0500 Body temperature 97.5 [degF] Stevie Vanessa DO Work Phone: [facility] 06-03-2023 10:11-0500 Diastolic blood pressure 58 mm[Hg] Stevie Vanessa DO Work Phone: [facility] 06-03-2023 10:11-0500 Heart rate 101 /min Stevie Vanessa DO Work Phone: [facility] 06-03-2023 10:11-0500 SaO2% (BldA) [Mass fraction] 95 % Stevie Vanessa DO Work Phone: [facility] 06-03-2023 10:11-0500 Systolic blood pressure 86 mm[Hg] Stevie Vanessa DO Work Phone: [facility] 05-27-2023 15:26-0500 Body temperature 99.7 [degF] Chair 3 [facility] 05-27-2023 15:26-0500 Diastolic blood pressure 56 mm[Hg] Chair 3 [facility] 05-27-2023 15:26-0500 Heart rate 86 /min Chair 3 [facility] 05-27-2023 15:26-0500 Respiratory rate 18 /min Chair 3 [facility] 05-27-2023 15:26-0500 SaO2% (BldA) [Mass fraction] 91 % Chair 3 [facility] 05-27-2023 15:26-0500 Systolic blood pressure 107 mm[Hg] Chair 3 [facility] 05-27-2023 10:39-0500 Body height 165.1 cm Chair 3 [facility] 05-27-2023 10:39-0500 Body mass index (BMI) [Ratio] 33.36 kg/m2 Chair 3 [facility] 05-27-2023 10:39-0500 Body weight 90.95 kg Chair 3 [facility] 05-23-2023 10:59-0500 Diastolic blood pressure 70 mm[Hg] Chair 4 [facility] 05-23-2023 10:59-0500 Heart rate 87 /min Chair 4 [facility] 05-23-2023 10:59-0500 SaO2% (BldA) [Mass fraction] 91 % Chair 4 [facility] 05-23-2023 10:59-0500 Systolic blood pressure 125 mm[Hg] Chair 4 [facility] 05-23-2023 08:45-0500 Body mass index (BMI) [Ratio] 33.9 kg/m2 Chair 4 [facility] 05-23-2023 08:45-0500 Body temperature 97.7 [degF] Chair 4 [facility] 05-23-2023 08:45-0500 Body weight 92.4 kg Chair 4 [facility] 05-23-2023 08:45-0500 Respiratory rate 20 /min Chair 4 [facility] 05-20-2023 13:16-0500 Body temperature 98.1 [degF] Bed 1 [facility] 05-20-2023 13:16-0500 Diastolic blood pressure 70 mm[Hg] Bed 1 [facility] 05-20-2023 13:16-0500 Heart rate 75 /min Bed 1 [facility] 05-20-2023 13:16-0500 SaO2% (BldA) [Mass fraction] 94 % Bed 1 [facility] 05-20-2023 13:16-0500 Systolic blood pressure 134 mm[Hg] Bed 1 [facility] 05-20-2023 08:48-0500 Body height 165.1 cm Stevie Vanessa DO Work Phone: [facility] 05-20-2023 08:48-0500 Body mass index (BMI) [Ratio] 33.41 kg/m2 Stevie Vanessa DO Work Phone: [facility] 05-20-2023 08:48-0500 Body temperature 98.01 [degF] Stevie Vanessa DO Work Phone: [facility] 05-20-2023 08:48-0500 Body weight 91.08 kg Stevie Vanessa DO Work Phone: [facility] 05-20-2023 08:48-0500 Diastolic blood pressure 68 mm[Hg] Stevie Vanessa DO Work Phone: [facility] 05-20-2023 08:48-0500 Heart rate 85 /min Stevie Vanessa DO Work Phone: [facility] 05-20-2023 08:48-0500 SaO2% (BldA) [Mass fraction] 95 % Stevie Vanessa DO Work Phone: [facility] 05-20-2023 08:48-0500 Systolic blood pressure 106 mm[Hg] Stevie Vanessa DO Work Phone: [facility] 05-20-2023 08:43-0500 Body mass index (BMI) [Ratio] 33.36 kg/m2 Bed 1 [facility] 05-20-2023 08:43-0500 Body weight 90.95 kg Bed 1 [facility] 05-20-2023 08:43-0500 Respiratory rate 16 /min Bed 1 [facility] 05-13-2023 12:58-0500 Body temperature 98.71 [degF] Chair 5 [facility] 05-13-2023 12:58-0500 Diastolic blood pressure 71 mm[Hg] Chair 5 [facility] 05-13-2023 12:58-0500 Heart rate 78 /min Chair 5 [facility] 05-13-2023 12:58-0500 Respiratory rate 16 /min Chair 5 [facility] 05-13-2023 12:58-0500 SaO2% (BldA) [Mass fraction] 94 % Chair 5 [facility] 05-13-2023 12:58-0500 Systolic blood pressure 120 mm[Hg] Chair 5 [facility] 05-13-2023 08:40-0500 Body mass index (BMI) [Ratio] 33.78 kg/m2 Chair 5 [facility] 05-13-2023 08:40-0500 Body weight 92.08 kg Chair 5 [facility] 05-06-2023 13:06-0500 Body temperature 98.2 [degF] Chair 5 [facility] 05-06-2023 13:06-0500 Diastolic blood pressure 74 mm[Hg] Chair 5 [facility] 05-06-2023 13:06-0500 Heart rate 70 /min Chair 5 [facility] 05-06-2023 13:06-0500 Respiratory rate 12 /min Chair 5 [facility] 05-06-2023 13:06-0500 SaO2% (BldA) [Mass fraction] 92 % Chair 5 [facility] 05-06-2023 13:06-0500 Systolic blood pressure 136 mm[Hg] Chair 5 [facility] 05-06-2023 08:44-0500 Body height 165.1 cm [employer] Work Phone: [facility] 05-06-2023 08:44-0500 Body mass index (BMI) [Ratio] 34.25 kg/m2 [employer] DO Work Phone: [facility] 05-06-2023 08:44-0500 Body temperature 97 [degF] [employer] DO Work Phone: [facility] 05-06-2023 08:44-0500 Body weight 93.35 kg [employer] DO Work Phone: [facility] 05-06-2023 08:44-0500 Diastolic blood pressure 71 mm[Hg] Stevie Escobedo DO Work Phone: [facility] 05-06-2023 08:44-0500 Heart rate 77 /min Stevie Escobedo DO Work Phone: [facility] 05-06-2023 08:44-0500 SaO2% (BldA) [Mass fraction] 96 % Stevie Escobedo DO Work Phone: [facility] 05-06-2023 08:44-0500 Systolic blood pressure 113 mm[Hg] Stevie Escobedo DO Work Phone: [facility] 05-06-2023 08:43-0500 Body mass index (BMI) [Ratio] 34.25 kg/m2 Chair 5 [facility] 05-06-2023 08:43-0500 Body weight 93.35 kg Chair 5 [facility] 04-29-2023 13:56-0500 Body temperature 97.5 [degF] Chair 4 [facility] 04-29-2023 13:56-0500 Diastolic blood pressure 84 mm[Hg] Chair 4 [facility] 04-29-2023 13:56-0500 Heart rate 84 /min Chair 4 [facility] 04-29-2023 13:56-0500 Respiratory rate 20 /min Chair 4 [facility] 04-29-2023 13:56-0500 SaO2% (BldA) [Mass fraction] 94 % Chair 4 [facility] 04-29-2023 13:56-0500 Systolic blood pressure 132 mm[Hg] Chair 4 [facility] 04-29-2023 10:04-0500 Body mass index (BMI) [Ratio] 33.9 kg/m2 Chair 4 [facility] 04-29-2023 10:04-0500 Body weight 92.4 kg Chair 4 [facility] 04-22-2023 12:25-0400 Body temperature 97.3 [degF] Chair 6 [facility] 04-22-2023 12:25-0400 Diastolic blood pressure 76 mm[Hg] Chair 6 [facility] 04-22-2023 12:25-0400 Heart rate 75 /min Chair 6 [facility] 04-22-2023 12:25-0400 Respiratory rate 14 /min Chair 6 [facility] 04-22-2023 12:25-0400 SaO2% (BldA) [Mass fraction] 98 % Chair 6 [facility] 04-22-2023 12:25-0400 Systolic blood pressure 130 mm[Hg] Chair 6 [facility] 04-22-2023 08:12-0400 Body height 165.1 cm Stevie Vanessa DO Work Phone: [facility] 04-22-2023 08:12-0400 Body mass index (BMI) [Ratio] 34.18 kg/m2 Stevie Vanessa DO Work Phone: [facility] 04-22-2023 08:12-0400 Body temperature 98.01 [degF] Stevie Vanessa DO Work Phone: [facility] [facility] 04-22-2023 08:12-0400 Body weight 93.17 kg Stevie Vanessa DO Work Phone: [facility] 04-22-2023 08:12-0400 Diastolic blood pressure 83 mm[Hg] Stevie Vanessa DO Work Phone: [facility] 04-22-2023 08:12-0400 Heart rate 79 /min Stevie Vanessa DO Work Phone: [facility] 04-22-2023 08:12-0400 SaO2% (BldA) [Mass fraction] 93 % Stevie Vanessa DO Work Phone: [facility] 04-22-2023 08:12-0400 Systolic blood pressure 139 mm[Hg] Stevie Vanessa DO Work Phone: [facility] 04-08-2023 13:50-0400 Body temperature 97.5 [degF] Chair 6 [facility] 04-08-2023 13:50-0400 Diastolic blood pressure 71 mm[Hg] Chair 6 [facility] 04-08-2023 13:50-0400 Heart rate 72 /min Chair 6 [facility] 04-08-2023 13:50-0400 Respiratory rate 18 /min Chair 6 [facility] 04-08-2023 13:50-0400 Systolic blood pressure 128 mm[Hg] Chair 6 [facility] 04-08-2023 09:59-0400 Body height 165.1 cm Stevie Schulteebel DO Work Phone: [facility] 04-08-2023 09:59-0400 Body mass index (BMI) [Ratio] 33.86 kg/m2 Stevie Vanessa DO Work Phone: [facility] 04-08-2023 09:59-0400 Body temperature 98.4 [degF] Stevie Vanessa DO Work Phone: [facility] 04-08-2023 09:59-0400 Body weight 92.31 kg Stevie Schulteebel DO Work Phone: [facility] 04-08-2023 09:59-0400 Diastolic blood pressure 64 mm[Hg] Stevie Vanessa DO Work Phone: [facility] 04-08-2023 09:59-0400 Heart rate 74 /min Stevie Schulteebel DO Work Phone: [facility] 04-08-2023 09:59-0400 SaO2% (BldA) [Mass fraction] 98 % Stevie Schulteebel DO Work Phone: [facility] 04-08-2023 09:59-0400 Systolic blood pressure 127 mm[Hg] Stevie Vanessa DO Work Phone: [facility] 04-08-2023 09:56-0400 Body mass index (BMI) [Ratio] 33.86 kg/m2 Chair 6 [facility] 04-08-2023 09:56-0400 Body weight 92.31 kg Chair 6 [facility] 04-08-2023 09:56-0400 SaO2% (BldA) [Mass fraction] 98 % Chair 6 [facility] 04-01-2023 13:44-0400 Body temperature 98.01 [degF] Chair 3 [facility] 04-01-2023 13:44-0400 Diastolic blood pressure 81 mm[Hg] Chair 3 [facility] 04-01-2023 13:44-0400 Heart rate 70 /min Chair 3 [facility] 04-01-2023 13:44-0400 Respiratory rate 16 /min Chair 3 [facility] 04-01-2023 13:44-0400 SaO2% (BldA) [Mass fraction] 91 % Chair 3 [facility] 04-01-2023 13:44-0400 Systolic blood pressure 130 mm[Hg] Chair 3 [facility] 04-01-2023 08:02-0400 Body mass index (BMI) [Ratio] 34.11 kg/m2 Chair 3 [facility] 04-01-2023 08:02-0400 Body weight 92.99 kg Chair 3 [facility] 03-26-2023 14:30-0400 Body height 165.1 cm Stevie Vanessa DO Work Phone: [facility] 03-26-2023 14:30-0400 Body mass index (BMI) [Ratio] 33.78 kg/m2 Stevie Vanessa DO Work Phone: [facility] 03-26-2023 14:30-0400 Body weight 92.08 kg Stevie Vanessa DO Work Phone: [facility] 03-18-2023 13:35-0400 Body height 165.1 cm Stevie Vanessa DO Work Phone: [facility] 03-18-2023 13:35-0400 Body mass index (BMI) [Ratio] 33.86 kg/m2 Stevie Vanessa DO Work Phone: [facility] 03-18-2023 13:35-0400 Body temperature 98.1 [degF] Stevie Vanessa DO Work Phone: [facility] 03-18-2023 13:35-0400 Body weight 92.31 kg Steive Vanessa DO Work Phone: [facility] 03-18-2023 13:35-0400 Diastolic blood pressure 83 mm[Hg] Stevie Vanessa DO Work Phone: [facility] 03-18-2023 13:35-0400 Heart rate 77 /min Stevie Vanessa DO Work Phone: [facility] 03-18-2023 13:35-0400 SaO2% (BldA) [Mass fraction] 97 % Stevie Vanessa DO Work Phone: [facility] 03-18-2023 13:35-0400 Systolic blood pressure 140 mm[Hg] Stevie Vanessa DO Work Phone: [facility] 03-06-2023 13:21-0400 Body height 165.1 cm Jarrell Diego MD Work Phone: [facility] 03-06-2023 13:21-0400 Body mass index (BMI) [Ratio] 33.66 kg/m2 Jarrell Diego MD Work Phone: [facility] 03-06-2023 13:21-0400 Body temperature 97.11 [degF] Jarrell Diego MD Work Phone: [facility] 03-06-2023 13:21-0400 Body weight 91.76 kg Jarrell Diego MD Work Phone: [facility] 03-06-2023 13:21-0400 Diastolic blood pressure 90 mm[Hg] Jarrell Diego MD Work Phone: [facility] 03-06-2023 13:21-0400 Heart rate 77 /min Jarrell Diego MD Work Phone: [facility] 03-06-2023 13:21-0400 Respiratory rate 20 /min Jarrell Diego MD Work Phone: [facility] 03-06-2023 13:21-0400 SaO2% (BldA) [Mass fraction] 97 % Jarrell Diego MD Work Phone: [facility] 03-06-2023 13:21-0400 Systolic blood pressure 140 mm[Hg] Jarrell Diego MD Work Phone: [facility] 02-12-2023 15:27-0400 Body mass index (BMI) [Ratio] 34.11 kg/m2 Marie Devi MD Work Phone: [facility] 02-12-2023 15:27-0400 Body temperature 97.39 [degF] Marie Devi MD Work Phone: [facility] 02-12-2023 15:27-0400 Body weight 92.99 kg Marie Devi MD Work Phone: [facility] 02-12-2023 15:27-0400 Diastolic blood pressure 75 mm[Hg] Marie Devi MD Work Phone: [facility] 02-12-2023 15:27-0400 Heart rate 71 /min Marie Devi MD Work Phone: [facility] 02-12-2023 15:27-0400 Respiratory rate 16 /min Marie Devi MD Work Phone: [facility] 02-12-2023 15:27-0400 Systolic blood pressure 122 mm[Hg] Marie Devi MD Work Phone: [facility] 02-05-2023 07:51-0400 Body height 166.4 cm Pacc 2 Work Phone: [facility] 02-05-2023 07:51-0400 Body temperature 97.11 [degF] Pacc 2 Work Phone: [facility] 02-05-2023 07:51-0400 Body weight 93.44 kg Pacc 2 Work Phone: [facility] 02-05-2023 07:51-0400 Diastolic blood pressure 69 mm[Hg] Pacc 2 Work Phone: [facility] 02-05-2023 07:51-0400 Heart rate 76 /min Pacc 2 Work Phone: [facility] 02-05-2023 07:51-0400 Respiratory rate 16 /min Pacc 2 Work Phone: [facility] 02-05-2023 07:51-0400 SaO2% (BldA) [Mass fraction] 97 % Pacc 2 Work Phone: [facility] 02-05-2023 07:51-0400 Systolic blood pressure 126 mm[Hg] Pac 2 Work Phone: [facility] 02-03-2023 14:21-0400 Body height 165.1 cm Torrie Choi MD Work Phone: [facility] 02-03-2023 14:21-0400 Body weight 92.08 kg Torrie Choi MD Work Phone: [facility] 02-03-2023 14:21-0400 Diastolic blood pressure 83 mm[Hg] Torrie Choi MD Work Phone: [facility] 02-03-2023 14:21-0400 Heart rate 74 /min Torrie Choi MD Work Phone: [facility] 02-03-2023 14:21-0400 Systolic blood pressure 128 mm[Hg] Torrie Choi MD Work Phone: [facility] 01-23-2023 06:35-0400 Body mass index (BMI) [Ratio] 34.38 kg/m2 Marie Devi MD Work Phone: [facility] 01-23-2023 06:35-0400 Body temperature 96.91 [degF] Marie Devi MD Work Phone: [facility] 01-23-2023 06:35-0400 Body weight 93.71 kg Marie Devi MD Work Phone: [facility] 01-23-2023 06:35-0400 Diastolic blood pressure 73 mm[Hg] Marie Devi MD Work Phone: [facility] 01-23-2023 06:35-0400 Heart rate 68 /min Marie Devi MD Work Phone: [facility] 01-23-2023 06:35-0400 Respiratory rate 16 /min Marie Devi MD Work Phone: [facility] 01-23-2023 06:35-0400 SaO2% (BldA) [Mass fraction] 97 % Marie Devi MD Work Phone: [facility] 01-23-2023 06:35-0400 Systolic blood pressure 115 mm[Hg] Marie Devi MD Work Phone: [facility] 10-30-2022 10:06-0400 Body mass index (BMI) [Ratio] 32.78 kg/m2 Dara Mesko DO Work Phone: [facility] 10-30-2022 10:06-0400 Body temperature 97.9 [degF] Dara Mesko DO Work Phone: [facility] 10-30-2022 10:06-0400 Body weight 89.36 kg Dara Mesko DO Work Phone: [facility] 10-30-2022 10:06-0400 Diastolic blood pressure 66 mm[Hg] Dara Mesko DO Work Phone: [facility] 10-30-2022 10:06-0400 Heart rate 73 /min Dara Mesko DO Work Phone: [facility] 10-30-2022 10:06-0400 Respiratory rate 14 /min Dara Mesko DO Work Phone: [facility] 10-30-2022 10:06-0400 SaO2% (BldA) [Mass fraction] 97 % Dara Mesko DO Work Phone: [facility] 10-30-2022 10:06-0400 Systolic blood pressure 100 mm[Hg] Dara Mesko DO Work Phone: [facility] 10-24-2022 14:36-0400 Body mass index (BMI) [Ratio] 32.92 kg/m2 Dara Mesko DO Work Phone: [facility] 10-24-2022 14:36-0400 Body temperature 98.01 [degF] Dara Mesko DO Work Phone: [facility] 10-24-2022 14:36-0400 Body weight 89.72 kg Dara Daianako DO Work Phone: [facility] 10-24-2022 14:36-0400 Diastolic blood pressure 72 mm[Hg] Dara Daianako DO Work Phone: [facility] 10-24-2022 14:36-0400 Heart rate 85 /min Dara Daianako DO Work Phone: [facility] 10-24-2022 14:36-0400 Respiratory rate 16 /min Dara Daianako DO Work Phone: [facility] 10-24-2022 14:36-0400 SaO2% (BldA) [Mass fraction] 98 % Dara Ahmadiko DO Work Phone: [facility] 10-24-2022 14:36-0400 Systolic blood pressure 126 mm[Hg] Dara Ahmadiko DO Work Phone: [facility] 07-17-2022 06:57-0500 Body height 165.1 cm [...] 06:57-0500 Diastolic blood pressure 68 mm[Hg] Marie Stanley Duldina Work Phone: [facility] Work Phone: 07-17-2022 06:57-0500 Heart rate 67 /min Marie Devi Work Phone: [facility] Work Phone: 07-17-2022 06:57-0500 Respiratory rate 12 /min Marie Stanley Duldina Work Phone: [facility] Work Phone: 07-17-2022 06:57-0500 SaO2% (BldA) [Mass fraction] 95 % Marie Devi Work Phone: [facility] Work Phone: 07-17-2022 06:57-0500 Systolic blood pressure 104 mm[Hg] Marie Devi Work Phone: [facility] Work Phone: 01-10-2022 06:33-0400 Body mass index (BMI) [Ratio] 33.28 kg/m2 Marie Stanley Duldina Work Phone: [facility] [...] 01-10-2022 06:33-0400 Heart rate 71 /min Marie Stanley Dulle Work Phone: [facility] [...] mass index (BMI) [Ratio] 32.62 kg/m2 Marie Stanley Dulle Work Phone: [facility] Work Phone: 07-12-2021 06:47-0500 Body surface area Derived from formula 1.96 m2 Marie Douglasle Work Phone: [facility] [...] rate 12 /min Marie Devi Work Phone: [facility] Work Phone: 07-12-2021 06:47-0500 SaO2% [...] Phone: 01-10-2021 06:45-0400 Body temperature 96.2 [degF] aMrie Devi Work Phone: [facility] Work Phone: 01-10-2021 06:45-0400 Body weight 88.45 kg Marie Devi Work Phone: [facility] Work Phone: 01-10-2021 06:45-0400 Diastolic blood pressure 71 mm[Hg] Marie Stanley Duldina Work Phone: [facility] Work Phone: 01-10-2021 06:45-0400 Heart rate 73 /min Mraie Devi Work Phone: [facility] Work Phone: 01-10-2021 06:45-0400 Respiratory rate 12 /min Marie Devi Work Phone: [facility] Work Phone: 01-10-2021 06:45-0400 SaO2% (BldA) [Mass fraction] 96 % Marie Devi Work Phone: [facility] Work Phone: 01-10-2021 06:45-0400 Systolic blood pressure 105 mm[Hg] Marie Devi Work Phone: [facility] Work Phone: 01-06-2020 08:40-0400 Body Temperature 97.7 [degF] Marie Devi [facility] Work Phone: Comment on above: Method: Temporal 01-06-2020 08:40-0400 BP Diastolic 71 mm[Hg] Marie Devi [facility] Work Phone: Comment on above: Location: RUE; Position: Sitting 01-06-2020 08:40-0400 BP Systolic 110 mm[Hg] Marie Devi [facility] Work Phone: Comment on above: Location: RUE; Position: Sitting 01-06-2020 08:40-0400 Pulse (Heart Rate) 72 /min Marie Devi [facility] Work Phone: 01-06-2020 08:40-0400 Pulse Oximetry 95 % [facility]i [facility] Work Phone: 01-06-2020 08:40-0400 Respiratory Rate 12 /min Marie Devi [facility] Work Phone: 01-06-2020 08:37-0400 BMI (Body Mass Index) 30.42 kg/m2 Marie Devi [facility] Work Phone: 01-06-2020 08:37-0400 Body weight 81.65 kg Marie Stelladina [facility] Work Phone: 01-06-2020 08:37-0400 BSA (Body Surface Area) 1.88 m2 Marie Devi [facility] Work Phone: Encounters Encounter Date Encounter Type Care Provider Facility Start: 03-22-2025 ambulatory Azam Santo ty:[facility] Start: 01-24-2025 ambulatory Shant Kern y:[facility] Start: 01-18-2025 ambulatory MARIE DEVI Facility: [facility] Start: 01-18-2025 End: 01-18-2025 Subsequent hospital visit by physician [place] 2 [facility] Comment on above: Abnormal MRI of head [R93.0] Start: 01-13-2025 End: 01-13-2025 Orders Only Sara Ramey APRN.PEELER OPERATOR Work Phone: Cerebrovascular Comment on above: Abnormal EEG (Primar y Dx); Transient confusion Start: 01-12-2025 End: 01-12-2025 Telephone encounter Sara Ramey APRN.PEELER OPERATOR Work Phone: Cerebrovascular Start: 01-11-2025 ambulatory Shant Kern y:[facility] Start: 01-07-2025 End: 01-07-2025 Telephone encounter Sara Ramey APRN.CNP Work Phone: [facility] Comment on above: Patient Update Start: 01-03-2025 End: 01-03-2025 Patient encounter procedure Sara Ramey APRN.CNP Work Phone: Cerebrovascular Comment on above: Transient confusion (Primary Dx); Abnormal MRI of head; History of cerebral hemorrhage; Silent micro-hemorrhage of brain (HCC); Abnormal EEG; Cervicogenic headache Start: 01-03-2025 End: 01-03-2025 ambulatory RACHEAL ESTRELLA Facility:[facility] Start: 12-15-2024 End: 02-14-2025 Follow-up encounter Torrie Choi MD Work Phone: General Surgery Start: [facility]-14-[facility] Start: 12-13-2024 ambulatory Azam Leticia Santo ty:[facility] Start: 12-03-2024 End: 12-10-2024 Evaluation and management of inpatient SHAW KINSEY Facility:[facility] Start: 09-17-2024 End: 09-17-2024 Patient encounter procedure Cristina Alanna Santos DO Work Phone: [facility] Comment on above: Medicare annual well ness visit, subsequent (Primary Dx); Depression with anxiety; Elevated TSH; Parkinson's disease without dyskinesia or fluctuating manifestations; Vitamin D deficiency; Do not resuscitate Start: 09-17-2024 End: 09-17-2024 ambulatory [facility] Start: 08-10-2024 End: 08-10-2024 Office outpatient visit 15 minutes Stevie Escobedo DO Work Phone: [facility] Oncology [facility] Comment on above: Malignant neoplasm o f upper-outer quadrant of left breast in female, estrogen receptor positive (HCC) (Primary Dx) Start: 08-10-2024 End: 08-10-2024 ambulatory [facility] Start: 07-31-2024 End: 08-03-2024 Refill Stevie Escobedo DO Work Phone: [facility] Comment on above: Malignant neoplasm o f upper-outer quadrant of left breast in female, estrogen receptor positive (HCC) Start: 03-25-2024 ambulatory MARIE DEVI Facility: [facility] Start: 03-25-2024 End: 03-25-2024 Subsequent hospital visit by physician Screen/Diagnostic Mammo 1 [facility] Work Phone: Mammography Comment on above: Visit for screening mammogram [Z12.31] Start: 03-16-2024 End: 03-16-2024 Office outpatient visit 15 minutes Stevie Sam Escobedo DO Work Phone: [facility] Radiation Oncology - [facility] Comment on above: Malignant neoplasm o f upper-outer quadrant of left breast in female, estrogen receptor positive (HCC) (Primary Dx) Start: 03-16-2024 End: 03-16-2024 ambulatory [facility] Start: 02-19-2024 End: 02-19-2024 ambulatory MARIE DEVI Facility:[facility] Start: 02-19-2024 End: 02-19-2024 Patient encounter procedure Torrie Choi MD Work Phone: General Surgery Comment on above: Malignant neoplasm o f upper-outer quadrant of left breast in female, estrogen receptor positive (HCC) (Primary Dx) Start: 02-18-2024 End: 02-18-2024 Office outpatient visit 25 minutes Marie Devi MD Work Phone: [facility] Comment on above: Parkinsonism, unspec ified Parkinsonism type (Multi) (Primary Dx); Malignant neoplasm of right female breast, unspecified estrogen receptor status, unspecified site of breast (Multi); Depression with anxiety; Elevated TSH; Obesity (BMI 30.0-34.9); Other specified depressive episodes Start: 02-18-2024 End: 02-18-2024 ambulatory [facility] Start: 02-03-2024 End: 02-03-2024 Refill Stevie Sam SchulteVanessa DO Work Phone: [facility] Comment on above: Malignant neoplasm o f upper-outer quadrant of left breast in female, estrogen receptor positive (HCC) Patient Question Start: 02-03-2024 End: 02-03-2024 Office outpatient visit 25 minutes Stevie E Vanessa DO Work Phone: [facility] Comment on above: Malignant neoplasm o f upper-outer quadrant of left breast in female, estrogen receptor positive (HCC) (Primary Dx) Start: 11-11-2023 End: 11-11-2023 Office outpatient visit 25 minutes Marie Devi MD Work Phone: [facility] Comment on above: 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) (Primary Dx); Parkinsonism, unspecified Parkinsonism type (Multi); Depression with anxiety; Pneumonia due to COVID-19 virus; Malignant neoplasm of right female breast, unspecified estrogen receptor status, unspecified site of breast (Multi) Start: 11-04-2023 End: 11-04-2023 Office outpatient visit 25 minutes Stevie E Vanessa DO Work Phone: [facility] Comment on above: Malignant neoplasm o f upper-outer quadrant of left breast in female, estrogen receptor positive (HCC) (Primary Dx) Start: 11-04-2023 End: 11-04-2023 ambulatory Stevie E Vanessa DO Work Phone: [facility] Comment on above: Arrived Start: 10-30-2023 Orders Only Stevie E Goebe l DO Work Phone: [facility] Comment on above: Malignant neoplasm o f upper-outer quadrant of left breast in female, estrogen receptor positive (HCC) (Primary Dx) Start: 10-29-2023 End: 11-27-2023 ambulatory MARIE DEVI [facility] Start: 10-14-2023 End: 10-28-2023 Subsequent hospital visit by physician Darrick Santos DO Work Phone: [facility] Start: 10-06-2023 Telephone encounter Lisa [address]ters RD [facility] Comment on above: Nutrition Counseling Start: 09-30-2023 Orders Only Stevie E Goebe l DO Work Phone: [facility] Comment on above: Malignant neoplasm o f upper-outer quadrant of left breast in female, estrogen receptor positive (HCC) (Primary Dx) Start: 09-23-2023 End: 09-23-2023 ambulatory Stevie E Vanessa DO Work Phone: [facility] Comment on above: Malignant neoplasm o f upper-outer quadrant of left breast in female, estrogen receptor positive (HCC) Start: 09-18-2023 End: 09-18-2023 Subsequent hospital visit by physician Stevie Escobedo DO Work Phone: [facility] Non-Invasive Cardiology Comment on above: Admission for therap eutic drug monitoring; Encounter for monitoring cardiotoxic drug therapy Start: 09-18-2023 End: 09-18-2023 ambulatory STEVIE VANESSA [facility] Start: 09-12-2023 End: 09-12-2023 Subsequent hospital visit by physician Jarrell Diego MD Work Phone: [facility] Comment on above: Malignant neoplasm o f upper-outer quadrant of left breast in female, estrogen receptor positive (HCC) (HCC) (Primary Dx) Start: 09-12-2023 End: 09-12-2023 ambulatory JARRELL DIEGO [facility] Start: 09-05-2023 End: 09-05-2023 Orders Only Stevie Escobedo DO Work Phone: [facility] Comment on above: Malignant neoplasm o f upper-outer quadrant of left breast in female, estrogen receptor positive (HCC) (HCC) (Primary Dx) Malignant neoplasm o f upper-outer quadrant of left breast in female, estrogen receptor positive (HCC) (HCC); Asymptomatic menopausal state; Encounter for monitoring anastrozole therapy Start: 09-02-2023 End: 09-02-2023 Office outpatient visit 25 minutes Stevie Escobdeo DO Work Phone: [facility] Comment on above: Malignant neoplasm o f upper-outer quadrant of left breast in female, estrogen receptor positive (HCC) (HCC) (Primary Dx); Encounter for monitoring cardiotoxic drug therapy; Asymptomatic menopausal state; Encounter for monitoring anastrozole therapy Start: 09-02-2023 End: 09-02-2023 ambulatory Stevie Escobedo DO Work Phone: [facility] [...] ONC Start: 08-12-2023 End: 08-12-2023 ambulatory Stevie Sam Escobedo DO Work Phone: [...] End: 08-07-2023 Subsequent hospital visit by physician Jarrell Diego MD Work Phone: [facility] [...] ONC Start: 07-31-2023 End: 07-31-2023 ambulatory MARIE Stanley [facility] Start: 07-31-2023 End: 07-31-2023 Subsequent hospital visit by physician Jenny Conner110 Ultrasound [facility] Comment on above: Thyroid nodule Nontoxic single thyr oid nodule Start: 07-30-2023 End: 07-30-2023 Subsequent hospital visit by physician Jarrell Diego MD Work Phone: [facility] Start: 07-30-2023 End: 07-31-2023 ambulatory MARIE DEVI [facility] Start: 07-30-2023 End: 07-30-2023 Patient encounter procedure Marie Devi MD Work Phone: [facility] Comment on above: Parkinsonism, unspec ified Parkinsonism type (Primary Dx); Malignant neoplasm of right female breast, unspecified estrogen receptor status, unspecified site of breast (CMS/HCC); 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CMS/HCC); Medicare annual wellness visit, subsequent; Bilateral lower extremity edema Start: 07-29-2023 End: 07-29-2023 Subsequent hospital visit by physician Jarrell Diego MD Work Phone: [facility] Start: 07-29-2023 Telephone encounter Stevie weaver DO Work Phone: [facility] Comment on above: Orders Start: 07-28-2023 End: 07-28-2023 Subsequent hospital visit by physician Jarrell Diego MD Work Phone: [facility] Start: 07-27-2023 End: 07-27-2023 Subsequent hospital visit by physician Jarrell Diego MD Work Phone: [facility] Comment on above: Arrived Start: 07-25-2023 End: 07-25-2023 Subsequent hospital visit by physician Dalia [facility] Start: 07-24-2023 End: 07-24-2023 Subsequent hospital visit by physician Varian [facility] Start: 07-23-2023 End: 07-23-2023 Subsequent hospital visit by physician Jarrell Diego MD Work Phone: [facility] Start: 07-22-2023 End: 07-22-2023 Subsequent hospital visit by physician Jarrell Diego MD Work Phone: [facility] Start: 07-21-2023 End: 07-21-2023 Subsequent hospital visit by physician Dalia [facility] Start: 07-20-2023 End: 07-20-2023 [...] End: 07-17-2023 Subsequent hospital visit by physician Jarrell Diego MD Work Phone: [facility] Start: 07-16-2023 End: 07-16-2023 Subsequent hospital visit by physician Varian [facility] Start: 07-15-2023 End: 07-15-2023 Subsequent hospital visit by physician Varian [facility] Start: 07-15-2023 End: 07-15-2023 ambulatory Stevie Escobedo DO Work Phone: [facility] Comment on above: Malignant neoplasm o f upper-outer quadrant of left breast in female, estrogen receptor positive (HCC) (HCC) Start: 07-15-2023 End: 07-15-2023 Office outpatient visit 25 minutes Stevie Escobedo DO Work Phone: [facility] Comment on above: Malignant neoplasm o f upper-outer quadrant of left breast in female, estrogen receptor positive (HCC) (HCC) (Primary Dx) Start: 07-14-2023 End: 07-14-2023 Subsequent hospital visit by physician Varian [facility] Start: 07-14-2023 Telephone encounter Darlene [facility]el [facility] Start: 07-13-2023 End: 07-13-2023 Subsequent hospital visit by physician Billing Only Appointments Radiation Oncology [facility] Comment on above: Arrived Start: 07-11-2023 End: 07-11-2023 Subsequent hospital visit by physician Jarrell Diego MD Work Phone: [facility] Start: 07-06-2023 End: 07-06-2023 Subsequent hospital visit by physician Jarrell Diego MD Work Phone: [facility] Comment on above: Arrived Start: 07-03-2023 End: 07-03-2023 Subsequent hospital visit by physician Jarrell Diego MD Work Phone: [facility] Comment on above: Malignant neoplasm o f upper-outer quadrant of left female breast, unspecified estrogen receptor status (HCC) Start: 07-03-2023 End: 07-03-2023 Office outpatient visit 25 minutes Jarrell Diego MD Work Phone: [facility] Comment on above: Malignant neoplasm o f upper-outer quadrant of left breast in female, estrogen receptor positive (HCC) (Primary Dx) Start: 07-03-2023 End: 07-03-2023 Subsequent hospital visit by physician Billing Only Appointments Radiation Oncology [facility] Comment on above: Arrived Start: 07-01-2023 Orders Only Stevie alvarado DO Work Phone: [facility] Comment on above: Malignant neoplasm o f upper-outer quadrant of left breast in female, estrogen receptor positive (HCC) (Primary Dx) Start: 06-26-2023 End: 06-26-2023 Office outpatient visit 40 minutes Marie Devi MD Work Phone: [facility] Comment on above: Parkinsonism, unspec ified Parkinsonism type (Primary Dx); Toxic effect of chemotherapy; Dehydration; Malignant neoplasm of right female breast, unspecified estrogen receptor status, unspecified site of breast (CMS/HCC) Start: 06-26-2023 End: 06-26-2023 Subsequent hospital visit by physician Stevie Escobedo DO Work Phone: [facility] Non-Invasive Cardiology Comment on above: Encounter for monito ring cardiotoxic drug therapy Start: 06-24-2023 End: 06-24-2023 Office outpatient visit 25 minutes Stevie Escobedo DO Work Phone: [facility] Comment on above: Malignant neoplasm o f upper-outer quadrant of left breast in female, estrogen receptor positive (HCC) (Primary Dx) Start: 06-24-2023 End: 06-24-2023 ambulatory Stevie Escobedo DO Work Phone: [facility] Comment on above: Malignant neoplasm o f upper-outer quadrant of left breast in female, 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, estrogen receptor positive (HCC) (HCC) Start: 06-13-2023 End: 04-12-2024 Telephone encounter Tisha Fernandez RN Work Phone: [facility] Comment on above: Erroneous [...] Orders Only Stevie alvarado DO Work Phone: [facility] Comment on above: Malignant neoplasm o f upper-outer quadrant of left breast in female, estrogen receptor positive (HCC) (Primary Dx) Start: 06-09-2023 Telephone encounter Stevie weaver DO Work Phone: [facility] Comment on above: Lab Orders Start: 06-04-2023 Telephone encounter Darlene [facility] Start: 06-03-2023 End: 06-03-2023 Subsequent hospital visit by physician Stevie Escobedo DO Work Phone: [facility] Imaging Comment on above: Malignant neoplasm o f upper-outer quadrant of left breast in female, estrogen receptor positive (HCC) ; Localized edema Start: 06-03-2023 Telephone encounter Stevie weaver DO Work Phone: [facility] Comment on above: Orders Start: 06-03-2023 End: 06-03-2023 Office outpatient visit 25 minutes Stevie Escobedo DO Work Phone: [facility] Comment on above: Malignant neoplasm o f upper-outer quadrant of left breast in female, estrogen receptor positive (HCC) (Primary Dx); Encounter for monitoring cardiotoxic drug therapy Start: 06-03-2023 End: 06-03-2023 ambulatory Stevie E Vanessa DO Work Phone: [facility] Comment on above: Malignant neoplasm o f upper-outer quadrant of left breast in female, estrogen receptor positive (HCC) ; Falling; Hypotension, unspecified hypotension type Start: 05-27-2023 Telephone encounter Diana Polanco [facility] Start: 05-27-2023 End: 05-27-2023 ambulatory Stevie E Vanessa DO Work Phone: [facility] Comment on above: Malignant neoplasm o f upper-outer quadrant of left breast in female, estrogen receptor positive (HCC) Start: 05-23-2023 End: 05-23-2023 Orders Only Stevie E Vanessa DO Work Phone: [facility] Comment on above: Malignant neoplasm o f upper-outer quadrant of left breast in female, estrogen receptor positive (HCC) (Primary Dx) Malignant neoplasm o f upper-outer quadrant of left breast in female, estrogen receptor positive (HCC) Start: 05-20-2023 End: 05-20-2023 Orders Only Stevie E Vanessa DO Work Phone: [facility] Comment on above: Malignant neoplasm o f upper-outer quadrant of left breast in female, estrogen receptor positive (HCC) (Primary Dx) Malignant neoplasm o f upper-outer quadrant of left breast in female, estrogen receptor positive (HCC) Start: 05-20-2023 End: 05-20-2023 Office outpatient visit 25 minutes Stevie E Vanessa DO Work Phone: [facility] Comment on above: Malignant neoplasm o f upper-outer quadrant of left breast in female, estrogen receptor positive (HCC) (Primary Dx) Start: 05-13-2023 End: 05-13-2023 ambulatory Stevie E Vanessa DO Work Phone: [facility] Comment on above: Malignant neoplasm o f upper-outer quadrant of left breast in female, estrogen receptor positive (HCC) Start: 05-12-2023 Telephone encounter Stevie E G oebel DO Work Phone: [facility] Comment on above: order for ECHO Start: 05-08-2023 Orders Only Stevie E Goebe l DO Work Phone: [facility] Comment on above: Malignant neoplasm o f upper-outer quadrant of left breast in female, estrogen receptor positive (HCC) (Primary Dx) Start: 05-06-2023 End: 05-06-2023 Office outpatient visit 25 minutes Stevie E Vanessa DO Work Phone: [facility] Comment on above: Malignant neoplasm o f upper-outer quadrant of left breast in female, estrogen receptor positive (HCC) (Primary Dx) Start: 05-06-2023 End: 05-06-2023 ambulatory Stevie E Vanessa DO Work Phone: [facility] Comment on [...] Start: 04-29-2023 End: 04-29-2023 ambulatory Stevie E Vanessa DO Work Phone: [facility] Comment on [...] Office outpatient visit 25 minutes Stevie E Vanessa DO Work Phone: [facility] Comment on above: Malignant neoplasm o f upper-outer quadrant of left breast in female, estrogen receptor positive (HCC) (Primary Dx) Start: 04-22-2023 End: 04-22-2023 ambulatory Stevie E Vanessa DO Work Phone: [facility] Comment on [...] Office outpatient visit 25 minutes Stevie E Vanessa DO Work Phone: [facility] Comment on above: Malignant neoplasm o f upper-outer quadrant of left breast in female, estrogen receptor positive (HCC) (Primary Dx) Start: 04-08-2023 End: 04-08-2023 ambulatory Stevie E Vanessa DO Work Phone: [facility] Comment on [...] Start: 04-01-2023 End: 04-01-2023 ambulatory Stevie E Vansesa DO Work Phone: [facility] Comment on above: Malignant neoplasm o f upper-outer quadrant of left breast in female, estrogen receptor positive (HCC) Start: 03-31-2023 End: 03-31-2023 ambulatory Stevie E Vanessa DO Work Phone: [facility] Comment on above: Arrived Start: 03-26-2023 End: 03-26-2023 Orders Only Stevie E Vanessa DO Work Phone: [facility] Comment [...] 03-18-2023 Office outpatient new 60 minutes Stevie Sam Vanessa DO Work Phone: [facility] Comment on above: Malignant neoplasm o f upper-outer quadrant of left breast in female, estrogen receptor positive (HCC) (Primary Dx); Other general symptoms and signs Start: 03-06-2023 End: 03-06-2023 Office outpatient new 60 minutes Jarrell Diego MD Work Phone: [facility] Comment on above: Malignant [...] 25 minutes Marie Devi MD Work Phone: [facility] Comment on above: Depression with [...] encounter procedure Alecia Hou MD Work Phone: [facility] Start: 02-06-2023 Telephone encounter Torrie Choi MD Work Phone: General Surgery Comment on above: Patient Update Start: 02-05-2023 Telephone encounter Torrie Choi MD Work Phone: General Surgery Comment on above: surgery concerns Start: 02-05-2023 End: 02-05-2023 Admission to establishment [place] [id number] Work Phone: [facility] Start: 02-05-2023 End: 02-05-2023 ambulatory [place] [id number] Work Phone: Pre Anesthesia Comment on above: Pre-op evaluation (P rimary Dx); Past history of allergy to penicillin-type antibiotic; MARCY on CPAP; History of uterine cancer; Cerebrovascular accident (CVA), unspecified mechanism (HCC); Anxiety and depression; Parkinsonism, unspecified Parkinsonism type (HCC); Personal history of penicillin allergy Start: 02-05-2023 End: 02-05-2023 Preprocedural examination done [place] [id number] Work Phone: [facility] Work Phone: Start: 02-03-2023 End: 02-03-2023 [...] Dx) Start: 09-26-2022 [id number] Start: 08-13-2022 AUDIT Marie Devi Work Phone: [facility] Work Phone: Start: 07-19-2022 Chart Update Marie Devi Work Phone: [facility] Work Phone: Start: 07-17-2022 Chart Update [...] Start: 09-21-2021 Documentation procedure Mammography Coordinator [facility] Start: 09-21-2021 Letter encounter Mammography Coordinator [facility] Start: 09-21-2021 End: 09-21-2021 Subsequent [...] Phone: Start: 01-06-2020 Patient encounter procedure Marie Deiv [facility] Work Phone: Start: 07-06-2019 Patient encounter procedure Marie Devi [facility] Work Phone: Start: 12-29-2018 Patient encounter procedure Marie Devi [facility] Work Phone: Start: 06-26-2018 Patient encounter procedure Marie Devi [facility] Work Phone: Patient encounter procedure Sebastián Michael Work Phone: [facility] Work Phone: Procedures Date Procedure Procedure Detail Performing Clinician Start: 09-17-2024 25-hydroxyvitamin D3 [Mass/volume] in Serum or Plasma Cristina R Stanec DO Work Phone: Start: 09-17-2024 Cobalamin (Vitamin B 12) [Mass/volume] in Serum or Plasma Cristina R Stanec DO Work Phone: Start: 09-17-2024 Comprehensive metabolic panel Cristina R Stanec DO Work Phone: Start: 09-17-2024 Hemoglobin A1c measurement Cristina R Stanec DO Work Phone: Start: 09-17-2024 TSH WITH REFLEX TO F REE T4 IF ABNORMAL Cristina R Stanec DO Work Phone: Start: 03-25-2024 Screening digital br east tomosynthesis bi Danay Dubose PA-C Work Phone: Start: 10-27-2023 Basic [...] count complete auto&auto difrntl wbc Stevie E Vanessa DO Work Phone: Start: 09-18-2023 Echo tthrc r-t 2d w/ wom-mode compl spec&colr d Stevie E Vanessa DO Work Phone: Start: 09-05-2023 Dxa bone density torri dy 1/> sites axial skel Stevie E Vanessa DO Work Phone: Start: 09-02-2023 Blood count complete auto&auto difrntl wbc Stevie E Vanessa DO Work Phone: Start: 09-02-2023 Comprehensive metabo lic 2000 panel - Serum or Plasma Stevie E Vanessa DO Work Phone: Start: 08-12-2023 Blood count complete auto&auto difrntl wbc Stevie E Vanessa DO Work Phone: Start: 08-05-2023 Blood count complete auto&auto difrntl wbc Stevie E Vanessa DO Work Phone: Start: 07-31-2023 US THYROID MARIE Vargas Start: 07-30-2023 US THYROID MARIE Vargas Start: 07-30-2023 Us soft tissue head & neck real time imge docm Marie Devi MD Work Phone: Start: 07-30-2023 US THYROID MARIE Vargas Start: 07-30-2023 Us soft tissue head & neck real time imge docdelbert Devi MD Work Phone: Start: 07-15-2023 Comprehensive metabolic panel Stevie E Vanessa DO Work Phone: Start: 06-26-2023 Echo tthrc r-t 2d w/ wom-mode compl spec&colr d Stevie Sam Vanessa DO Work Phone: Start: 06-24-2023 Comprehensive metabolic panel Stevie E Vanessa DO Work Phone: Start: 06-03-2023 Urinalysis complete panel - Urine Stevie Sam Vansesa DO Work Phone: Start: 06-03-2023 Urnls dip stick/tabl et reagent auto microscopy Stevie Sam Vanessa DO Work Phone: Start: 06-03-2023 Comprehensive metabolic panel Stevie E Vanessa DO Work Phone: Start: 05-27-2023 Comprehensive metabolic panel Stevie E Vanessa DO Work Phone: Start: 05-20-2023 Comprehensive metabolic panel Stevie E Vanessa DO Work Phone: Start: 05-13-2023 Comprehensive metabolic panel Stevie E Vanessa DO Work Phone: Start: 05-06-2023 Comprehensive metabolic panel Stevie E Vanessa DO Work Phone: Start: 04-29-2023 End: 04-29-2023 Comprehensive metabolic panel Stevie E G oebel DO Work Phone: Start: 04-22-2023 Comprehensive metabolic panel Stevie E Vanessa DO Work Phone: Start: 04-08-2023 Comprehensive metabolic panel Stevie E Vanessa DO Work Phone: Start: 04-01-2023 Comprehensive metabolic panel Stevie E Vanessa DO Work Phone: Start: 03-26-2023 Echo tthrc r-t 2d w/ wom-mode compl spec&colr d Stevie E Vanessa DO Work Phone: Start: 02-12-2023 Perq breast loc phyliica ce placemt 1st lesio us imag Torrie [...] DTaP/Tdap/Td Vaccines (2 - Td or Tdap) [facility] Start: 09-01-2033 Urine microalbumin profile DTaP,Tdap,Td Vaccine (2 - Td or Tdap) [facility] Start: 12-11-2027 Diabetes Screening Diabetes Screenin [facility] Start: 07-17-2027 Lipid panel Lipid Panel [facility] Start: 10-26-2026 Diabetes Screening Diabetes Screenin [facility] Start: 03-24-2026 Oncology Follow-Up: Breast Cancer Survivorship Plan (#5) Oncology Follow-Up: Breast Cancer Survivorship Plan (#5) [facility] Start: 02-05-2026 DIABETES SCREEN DIABETES SCREEN [facility] Start: 09-22-2025 Oncology Follow-Up: Breast Cancer Survivorship Plan (#4) Oncology Follow-Up: Breast Cancer Survivorship Plan (#4) [facility] Start: 09-18-2025 Medicare Annual Wellness Visit Medicare Annual Wellness Visit (AWV) [facility] Start: 09-02-2025 DIABETES SCREEN DIABETES SCREEN [facility] Start: 04-12-2025 End: 04-12-2025 Patient encounter procedure 04/12/2025 8:45 AM EDT Office Visit [facility] Oncology - [place] [address] [place] [address] [place] [phone] Stevie Escobedo DO [address] [place] [address] [facility] Oncology - [place] Start: 03-26-2025 End: 10-08-2025 DBT Breast - bilateral screening Bilateral screening mammogram with tomosynthesis Imaging Routine Malignant neoplasm of upper-outer quadrant of left breast in female, estrogen receptor positive (HCC) Expected: 03/26/2025, Expires: 10/08/2025 [facility] Work Phone: Comment on above: Expected: 03/26/2025 , Expires: 10/08/2025 Start: 03-24-2025 Oncology Follow-Up: Breast Cancer Survivorship Plan (#3) Oncology Follow-Up: Breast Cancer Survivorship Plan (#3) [facility] Start: 03-16-2025 End: 03-16-2025 Patient encounter procedure 03/16/2025 1:30 PM EDT Appointment [facility] Radiation Oncology - [place] [address] [place] [phone] Stevie Escobedo DO [address] [place] [place], [place] [id number] Jarrell Diego MD [address] [place] [address] [facility] Radiation Oncology - [place] Start: 03-11-2025 End: 03-11-2025 Patient encounter procedure 03/11/2025 11:00 AM EDT Office Visit Neurology Epilepsy [address] [place] [address] [place], [place] [id number] Christopher Proctor MD [address] [place] [address] [place] [address] Epilepsy Neurology Epilepsy Comment on above: Epilepsy Start: 02-21-2025 Influenza vaccination Influenza Vacc ine (#1) [facility] Start: 02-14-2025 End: 02-14-2025 Patient encounter procedure 02/14/2025 9:30 AM EDT Office Visit Cerebrovascular [address] [place] [phone] Sara Ramey, OPHTHALMOLOGY TECHNICIAN.PEELER OPERATOR [address] [place] [address] Cerebrovascular Start: 01-26-2025 End: 01-26-2025 Patient encounter procedure 01/26/2025 8:00 AM EDT Office Visit [facility] [address] [place] [phone] Cristina Santos DO [address] [facility] [place] [address] [facility] Start: 09-22-2024 Screening for malign ant neoplasm of breast Mammogram: Breast Cancer Survivorship Plan (#2) [facility] Start: 08-10-2024 End: 08-10-2024 Patient encounter procedure [facility] Start: 07-31-2024 Medicare Annual Wellness Visit Medicare Annual Wellness Visit (AWV) [facility] Start: 06-23-2024 Advance Directive Discussion Advance Directive Discussion [facility] Start: 06-23-2024 Medicare Advantage Annual Wellness Visit Medicare Advantage Annual Wellness Visit [facility] Start: 03-25-2024 End: 03-25-2024 Patient encounter procedure 03/25/2024 2:20 PM EDT Appointment Mammography [address] [place] [address] Procedure: LEE SCREENING W SHIVA Mammography Comment on above: Procedure: LEE SCREE MAZIN W SHIVA Start: 03-24-2024 Complete blood count ONCBCN Woods rvivorship Screening (#1) [facility] Start: 03-24-2024 Screening for malign ant neoplasm of breast Mammogram: Breast Cancer Survivorship Plan (#1) [facility] Start: 03-17-2024 End: 03-17-2024 Patient encounter procedure 03/17/2024 2:30 PM EDT Appointment [facility] [address] [place] [phone] Stevie Escobedo DO [address] [facility] [address] [place] [address] Jarrell Diego MD [address] [place] [address] [facility] Start: 02-22-2024 COVID-19 Vaccine () COVID-19 Vaccine () [facility] Start: 02-22-2024 Covid-19 Vaccine ( season) Covid-19 Vaccine ( season) [facility] Start: 02-22-2024 Influenza vaccination Influenza Vacc ine (#1) [facility] Start: 02-19-2024 End: 02-19-2024 Patient encounter procedure 02/19/2024 9:15 AM EDT Office Visit General Surgery [address] [facility] [address] [place] [address] Torrie Choi MD [address] [facility] [address] [place] [address] follow up General Surgery Comment on above: follow up Start: 02-18-2024 End: 02-18-2024 Patient encounter procedure 02/18/2024 7:00 AM EDT Office Visit [facility] [address] [facility] [address] [place] [phone] Marie Devi MD [address] [facility] [place] [address] [facility] Start: 02-03-2024 End: 02-03-2024 Patient encounter procedure 02/03/2024 9:30 AM EDT Office Visit [facility] [address] [place] [phone] Stevie Escobedo DO [address] [place], [place] [id number] [facility] Start: 01-12-2024 Depression Monitoring Depression Mon itoring [facility] Start: 01-12-2024 Depresssion Monitoring Depresssion M onreymundoing [facility] Start: 12-16-2023 End: 12-16-2023 Patient encounter procedure 12/16/2023 9:30 AM EDT Office Visit [facility] [address] [place] [phone] Stevie Escobedo DO [address] [place], [place] [id number] [facility] Start: 12-16-2023 End: 12-16-2023 ambulatory 12/16/2023 9:00 AM EDT Infusion [facility] [address] [place] [address] Stevie Escobedo DO [address] [place] [address] [facility] Start: 12-03-2023 End: 12-03-2023 Patient encounter procedure 12/03/2023 9:00 AM EDT Appointment [facility] [address] [place] [address] Dara Kearney, PHLEBOTOMY SERVICES REPRESENTATIVE [facility] Start: 12-01-2023 End: 12-01-2023 Home visit 12/01/2023 9:00 AM EDT Home Care Visit [facility] [address] [place] [address] Dara Kearney, PHLEBOTOMY SERVICES REPRESENTATIVE [facility] Start: 11-27-2023 End: 11-27-2023 Home visit 11/27/2023 8:00 AM EDT Home Care Visit [facility] [address] [place] [address] Dara Kearney, PATRIC [facility] Start: 11-26-2023 End: 11-26-2023 Patient encounter procedure 11/26/2023 9:00 AM EDT Appointment [facility] [address] [place] [address] Hugo Louise, HANNAH [facility] Start: 11-25-2023 End: 11-25-2023 Home visit 11/25/2023 10:00 AM EDT Home [facility] Visit [facility] [address] [place] [address] Dara Kearney, PHLEBOTOMY SERVICES REPRESENTATIVE [facility] Start: 11-25-2023 End: 11-25-2023 ambulatory 11/25/2023 9:00 AM EDT Infusion [facility] [address] [place] [phone] Stevie Escobedo DO [address] [place] [address] [place] [address] [facility] Start: 11-20-2023 End: 11-20-2023 Home visit [facility] Start: 11-19-2023 End: 11-19-2023 Home visit 11/19/2023 8:00 AM EDT Home [facility] Visit [facility] [address] [place] [address] Hugo Louise RN [facility] Start: 11-18-2023 End: 11-18-2023 Home visit 11/18/2023 12:30 PM EDT Home [facility] Visit [facility] [address] [place] [address] Dara Kearney SLP [facility] Start: 11-13-2023 End: 11-13-2023 Home visit 11/13/2023 12:30 PM EDT Home [facility] Visit [facility] [address] [place] [address] Dara Kearney SLP [facility] Start: 11-12-2023 End: 11-12-2023 Home visit [facility] Start: 11-04-2023 End: 11-03-2024 CBC W Auto Differential panel - Blood CBC auto differential Lab STAT Malignant neoplasm of upper-outer quadrant of left breast in female, estrogen receptor positive (HCC) Expected: 11/04/2023, Expires: 11/03/2024 [facility] Work Phone: Comment on above: Expected: 11/04/2023 , Expires: 11/03/2024 Start: 11-04-2023 End: 11-03-2024 Comprehensive metabolic 2000 panel - Serum or Plasma Comprehensive Metabolic Panel - [facility] STAT Malignant neoplasm of upper-outer quadrant of left breast in female, estrogen receptor positive (HCC) Expected: 11/04/2023, Expires: 11/03/2024 [facility] Comment on above: Expected: 11/04/2023 , Expires: 11/03/2024 Start: 11-04-2023 End: 11-04-2023 ambulatory 11/04/2023 10:00 AM EDT Infusion [facility] [address] [place] [address] Stevie Escobedo DO [address] [place] [address] [place] [address] [facility] Start: 11-04-2023 End: 11-04-2023 Patient encounter procedure 11/04/2023 9:45 AM EDT Office Visit [facility] [address] [place] [address] [place] [phone] Stevie Escobedo DO [address] [place] [address] [facility] Start: 10-14-2023 End: 10-13-2024 CBC W Auto Differential panel - Blood CBC auto differential Lab STAT Malignant neoplasm of upper-outer quadrant of left breast in female, estrogen receptor positive (HCC) (HCC) Expected: 10/14/2023, Expires: 10/13/2024 [facility] Work Phone: Comment on above: Expected: 10/14/2023 , Expires: 10/13/2024 Start: 10-14-2023 End: 10-13-2024 Comprehensive metabolic 2000 panel - Serum or Plasma Comprehensive Metabolic Panel - [facility] STAT Malignant neoplasm of upper-outer quadrant of left breast in female, estrogen receptor positive (HCC) (HCC) Expected: 10/14/2023, Expires: 10/13/2024 [facility] Comment on above: Expected: 10/14/2023 , Expires: 10/13/2024 Start: 10-14-2023 End: 10-14-2023 Patient encounter procedure [facility] Start: 10-14-2023 End: 10-14-2023 ambulatory [facility] Start: 09-23-2023 End: 09-22-2024 CBC W Auto Differential panel - Blood CBC auto differential Lab STAT Malignant neoplasm of upper-outer quadrant of left breast in female, estrogen receptor positive (HCC) (HCC) Expected: 09/23/2023, Expires: 09/22/2024 [facility] Comment on above: Expected: 09/23/2023 , Expires: 09/22/2024 Start: 09-23-2023 End: 09-22-2024 Comprehensive metabolic 2000 panel - Serum or Plasma Comprehensive Metabolic Panel - [facility] STAT Malignant neoplasm of upper-outer quadrant of left breast in female, estrogen receptor positive (HCC) (HCC) Expected: 09/23/2023, Expires: 09/22/2024 [facility] Comment on above: Expected: 09/23/2023 , Expires: 09/22/2024 Start: 09-23-2023 End: 09-23-2023 ambulatory [facility] Start: 09-18-2023 End: 07-29-2025 US Heart Transthoracic Transthoracic echocardiogram (TTE) complete with contrast, bubble, strain, and 3D PRN CV Echocardiography Routine Admission for therapeutic drug monitoring Encounter for monitoring cardiotoxic drug therapy Expected: 09/18/2023 (Approximate), Expires: 07/29/2025 [facility] Phone: Comment on above: Expected: 09/18/2023 (Approximate), Expires: 07/29/2025 Start: 09-18-2023 End: 09-18-2023 Patient encounter procedure [facility] Start: 09-16-2023 End: 09-16-2023 ambulatory 09/16/2023 1:00 PM EDT Infusion [facility] [address] [place] [phone] Stevie Escobedo DO [address] [place] [address] [facility] Start: 09-12-2023 End: 09-12-2023 Patient encounter procedure 09/12/2023 1:30 PM EDT Appointment [facility] [address] [place] [phone] Jarrell Diego MD [address] [place], [place] [phone] [facility] Start: 09-11-2023 End: 09-11-2023 Patient encounter procedure 09/11/2023 1:30 PM EDT Appointment [facility] [address] [place] [phone] Jarrell Diego MD [address] [place] [address] [facility] Start: 09-05-2023 End: 09-05-2023 Patient encounter procedure [facility] Start: 09-05-2023 Subsequent hospital visit by physician 09/05/2023 10:00 AM EDT Hospital Encounter [facility] [place] [facility] [address] [place] [address] Stevie Escobedo DO [address] [place] [address] [facility] [place] [facility] Start: 09-02-2023 End: 09-02-2024 Comprehensive metabolic 2000 panel - Serum or Plasma Comprehensive Metabolic Panel - [facility] STAT Malignant neoplasm of upper-outer quadrant of left breast in female, estrogen receptor positive (HCC) (HCC) Expected: 09/02/2023, Expires: 09/02/2024 [employer] Work Phone: Comment on above: Expected: 09/02/2023 , Expires: 09/02/2024 Start: 09-02-2023 End: 09-01-2024 DXA Skeletal system.axial Views for bone density DEXA bone density axial skeleton Imaging Routine Malignant neoplasm of upper-outer quadrant of left breast in female, estrogen receptor positive (HCC) (HCC) Asymptomatic menopausal state Encounter for monitoring anastrozole therapy Expected: 09/02/2023, Expires: 09/01/2024 [facility] Work Phone: Comment on above: Expected: 09/02/2023 , Expires: 09/01/2024 Start: 09-02-2023 End: 09-02-2023 ambulatory 09/02/2023 9:00 AM EDT Infusion [facility] [address] [place] [phone] Stevie Escobedo, DO [address] [place], [place] [phone] [facility] Start: 09-02-2023 End: 09-02-2023 Patient encounter procedure 09/02/2023 8:45 AM EDT Office Visit [facility] [address] [place] [phone] Stevie Escobedo, DO [address] [place] [address] [facility] Start: 08-26-2023 End: 08-26-2023 Patient encounter procedure 08/26/2023 9:45 AM EST Office Visit [facility] [address] [place] [phone] Stevie Escobedo, DO [address] [place] [address] [facility] Start: 08-26-2023 End: 08-26-2023 ambulatory 08/26/2023 9:00 AM EST Infusion [facility] [address] [place] [phone] Stevie Escobedo, DO [address] [place] [address] [facility] Start: 08-12-2023 End: 08-12-2023 Patient encounter procedure 08/12/2023 1:15 PM EST Appointment [facility] [address] [place] [address] [facility] Start: 08-12-2023 End: 08-12-2023 ambulatory 08/12/2023 8:00 AM EST Infusion [facility] [address] [place] [phone] Stevie Escobedo DO [address] [place] [address] [facility] Start: 08-11-2023 End: 08-11-2023 Patient [...] 9:00 AM EST Infusion [facility] [address] [place] [phone] Stevie Escobedo DO [address] [place] [address] [facility] Start: 08-04-2023 End: 08-04-2023 Patient encounter procedure [facility] Start: 08-01-2023 End: 08-01-2023 Patient encounter procedure [facility] Start: 07-31-2023 End: 07-31-2023 Patient encounter procedure [facility] Start: 07-30-2023 End: 07-30-2023 Patient encounter procedure [facility] Start: 07-30-2023 End: 07-30-2023 Patient encounter procedure 07/30/2023 7:10 AM EST Office Visit [facility] [address] [place] [phone] Marie Devi MD [address] [facility], [address] [place] [address] [facility] Start: 07-29-2023 End: 07-29-2023 Patient [...] EST Appointment [facility] [address] [place] [phone] [facility] Start: 07-18-2023 Medicare Annual Wellness Visit Medicare Annual Wellness Visit (AWV) [facility] Start: 07-18-2023 End: 07-18-2023 Patient encounter procedure 07/18/2023 1:15 PM EST Appointment [facility] [address] [place] [phone] [facility] Start: 07-17-2023 End: 07-17-2023 Patient encounter procedure 07/17/2023 4:15 PM EST Appointment [facility] [address] [place] [address] Jarrell Deigo MD [address] [facility] [address] [place], [place] [phone] [facility] Start: 07-17-2023 End: 07-17-2023 Patient encounter procedure 07/17/2023 2:45 PM EST Appointment [facility] [address] [place] [phone] Jarrell Diego MD [address] [place] [address] [facility] Start: 07-16-2023 End: 07-16-2023 Patient encounter procedure 07/16/2023 4:15 PM EST Appointment [facility] [address] [place] [phone] [facility] Start: 07-15-2023 End: 07-15-2023 ambulatory [facility] Comment on above: Arrived Start: 07-15-2023 End: 07-15-2023 Patient encounter procedure [facility] Start: 07-14-2023 End: 07-14-2023 Patient encounter procedure 07/14/2023 4:15 PM EST Appointment [facility] [address] [place] [phone] [facility] Start: 07-11-2023 End: 07-11-2023 Patient encounter procedure 07/11/2023 2:15 PM EST Appointment [facility] [address] [place] [phone] Jarrell Diego MD [address] [place], [place] [phone] [facility] Start: 07-03-2023 End: 07-03-2023 Patient encounter procedure [facility] Start: 06-26-2023 End: 05-12-2025 US Heart Transthoracic Transthoracic echocardiogram (TTE) complete with contrast, bubble, strain, and 3D PRN CV Echocardiography Routine Encounter for monitoring cardiotoxic drug therapy Expected: 06/26/2023 (Approximate), Expires: 05/12/2025 [facility] Work Phone: Comment on above: Expected: 06/26/2023 (Approximate), Expires: 05/12/2025 Start: 06-26-2023 End: 06-26-2023 Patient encounter procedure 06/26/2023 11:00 AM EST Appointment [facility] Non-Invasive Cardiology [address] [place] [address] Stevie Escobedo DO [address] [place] [address] [facility] Non-Invasive Cardiology Start: 06-24-2023 End: 06-24-2023 Patient encounter procedure [facility] Start: 06-24-2023 End: 06-24-2023 ambulatory 06/24/2023 8:00 AM EST Infusion [facility] [address] [place] [address] Stevie Escobedo DO [address] [place] [address] [facility] Start: 06-23-2023 Advance Directive Discussion Advance Directive Discussion [facility] Start: 06-23-2023 Medicare Advantage Annual Wellness Visit Medicare Advantage Annual Wellness Visit [facility] Start: 06-20-2023 End: 06-20-2023 ambulatory [facility] Start: 06-17-2023 End: 06-17-2023 Patient encounter procedure 06/17/2023 10:30 AM EST Office Visit [facility] [address] [place] [address] [place] [phone] Stevie Escobedo DO [address] [place] [place] [address] [facility] Start: 06-17-2023 End: 06-17-2023 ambulatory 06/17/2023 10:00 AM EST Infusion [facility] [address] [place] [phone] Stevie Escobedo DO [address] [place] [address] [facility] Start: 06-13-2023 End: 06-13-2023 ambulatory 06/13/2023 9:00 AM EST Infusion [facility] [address] [place] [phone] Stevie Escobedo DO [address] [place] [address] [facility] Start: 06-10-2023 End: 06-10-2023 ambulatory 06/10/2023 10:00 AM EST Infusion [facility] [address] [place] [phone] Stevie Escobedo DO [address] [place] [address] [facility] Start: 06-06-2023 End: 06-06-2023 ambulatory 06/06/2023 9:00 AM EST Infusion [facility] [address] [place] [phone] Stevie Escobedo DO [address] [place] [place] [address] [facility] Start: 06-03-2023 End: 06-03-2023 Patient encounter procedure 06/03/2023 11:45 AM EST Office Visit [facility] [address] [place] [address] [place] [address] Stevie Escobedo DO [address] [place] [address] [facility] Start: 06-03-2023 End: 06-03-2023 Patient encounter procedure 06/03/2023 9:15 AM EST Office Visit [facility] [address] [place] [place] [address] Stevie Escobedo DO [address] [place] [place] [address] [facility] Start: 06-03-2023 End: 06-03-2023 ambulatory [facility] Start: 05-30-2023 End: 05-30-2023 ambulatory 05/30/2023 9:00 AM EST Infusion [facility] [address] [place] [address] Stevie Escobedo DO [address] [place] [address] [facility] Start: 05-27-2023 End: 05-27-2023 ambulatory [facility] Start: 05-23-2023 End: 05-23-2023 ambulatory 05/23/2023 9:00 AM EST Infusion [facility] [address] [place] [address] Stevie Escobedo, DO [address] [place] [address] [facility] Start: 05-20-2023 End: 05-20-2023 Patient encounter procedure 05/20/2023 10:15 AM EST Office Visit [facility] [address] [place] [place] [address] Stevie Escobedo DO [address] [place] [address] [facility] Start: 05-20-2023 End: 05-20-2023 ambulatory 05/20/2023 9:00 AM EST Infusion [facility] [address] [place] [address] Stevie Escobedo DO [address] [place] [address] [facility] Start: 05-13-2023 End: 05-13-2023 ambulatory [facility] Start: 05-06-2023 End: 05-06-2023 Patient encounter procedure 05/06/2023 10:45 AM EST Office Visit [facility] [address] [place] [place] [address] Stevie Escobedo DO [address] [place] [address] [facility] Start: 05-06-2023 End: 05-06-2023 ambulatory [facility] Start: 04-29-2023 End: 04-29-2023 ambulatory [facility] Start: 04-22-2023 End: 04-22-2023 Patient encounter procedure 04/22/2023 8:45 AM EDT Office Visit [facility] [address] [place] [place] [phone] Stevie Escobedo DO [address] [place] [address] [facility] Start: 04-22-2023 End: 04-22-2023 ambulatory [facility] Start: 04-15-2023 End: 04-15-2023 ambulatory [facility] Start: 04-08-2023 End: 04-08-2023 Patient encounter procedure 04/08/2023 10:45 AM EDT Office Visit [facility] [address] [place] [place] [address] Stevie Escobedo DO [address] [place] [place] [address] [facility] Start: 04-08-2023 End: 04-08-2023 ambulatory [facility] Start: 04-01-2023 End: 04-01-2023 ambulatory 04/01/2023 8:00 AM EDT Infusion [facility] [address] [place] [phone] [facility] Start: 03-31-2023 End: 03-31-2023 ambulatory 03/31/2023 11:00 AM EDT Infusion [facility] [address] [place] [address] Stevie Escobedo DO [address] [place] [place] [address] [facility] Start: 03-26-2023 End: 03-26-2023 Patient encounter procedure 03/26/2023 2:00 PM EDT Appointment [facility] Stress 1 [place] [address] Stevie Escobedo DO [address] [place], [place] [phone] [facility] Start: 03-18-2023 End: 03-18-2025 US Heart Transthoracic Transthoracic echocardiogram (TTE) complete with contrast, bubble, strain, and 3D PRN CV Echocardiography Routine Malignant neoplasm of upper-outer quadrant of left breast in female, estrogen receptor positive (HCC) Other general symptoms and signs Expected: 03/18/2023 (Approximate), Expires: 03/18/2025 [facility] [employer] Work Phone: Comment on above: Expected: 03/18/2023 (Approximate), Expires: 03/18/2025 Start: 03-18-2023 End: 03-18-2023 Patient encounter procedure 03/18/2023 1:30 PM EDT Office Visit [facility] [address] [place] [place] [address] Stevie Escobedo DO [address] [place], [place] [phone] [facility] Start: 02-21-2023 COVID-19 Vaccine ( season) COVID-19 Vaccine ( season) [facility] Start: 02-21-2023 Influenza vaccination [facility] Start: 02-10-2023 End: 02-10-2023 Patient encounter procedure 02/10/2023 3:30 PM EDT Office Visit [facility] [address] [place] [phone] Marie Devi MD [address] [facility] [place] [phone] [facility] Start: 01-23-2023 FUV, Provider: Marie Devi, Status: Pen, Time: 7:10 AM FUV, Provider: Marie Devi, Status: Pen, Time: 7:10 AM [facility] Work Phone: Start: 01-23-2023 End: 01-23-2023 Patient encounter procedure 01/23/2023 7:10 AM EDT Office Visit [facility] [address] [facility] [address] [place] [address] Marie Devi MD [address] [facility], [address] [place], [place] [address] [facility] Start: 09-11-2022 Zoster Vaccines (2 o f 2) Zoster Vaccines (2 of 2) [facility] Start: 07-17-2022 Patient encounter procedure MCRANNUAL, Provider: Marie Devi, Status: Pen, Time: 7:10 AM [facility] Work Phone: Start: 06-23-2022 ADVANCE DIRECTIVE DISCUSSION ADVANCE DIRECTIVE DISCUSSION [facility] Start: 06-23-2022 DEPRESSION ASSESSMENT DEPRESSION ASS ESSMENT [facility] Start: 01-10-2022 FUV, Provider: Marie Devi, Status: Pen, Time: 7:10 AM FUV, Provider: Marie Devi, Status: Pen, Time: 7:10 AM [facility] Work Phone: Start: 08-01-2021 COVID-19 Vaccine (4 - Booster for Moderna series) COVID-19 Vaccine (4 - Booster for Moderna series) [facility] Start: 08-01-2021 COVID-19 Vaccine (4 - Moderna risk series) COVID-19 Vaccine (4 - Moderna risk series) [facility] Start: 08-01-2021 COVID-19 VACCINE (4 - Moderna series) COVID-19 VACCINE (4 - Moderna series) [facility] Start: 07-12-2021 FUV, Provider: Marie Devi, Status: Pen, Time: 7:00 AM FUV, Provider: Marie Devi, Status: Pen, Time: 7:00 AM [facility] Work Phone: Start: 06-23-2021 ADVANCE DIRECTIVE DISCUSSION ADVANCE DIRECTIVE DISCUSSION [facility] Start: 2021 RSV High Risk: (Elde rly (60+) or Population) (1 - 1-dose 75+ series) RSV High Risk: (Elderly (60+) or Population) (1 - 1-dose 75+ series) [facility] Start: 2021 RSV Immunization for Adults (1 - 1-dose 75+ series) RSV Immunization for Adults (1 - 1-dose 75+ series) [facility] Start: 2021 RSV Vaccine (1 - 1-d ose 75+ series) RSV Vaccine (1 - 1-dose 75+ series) [facility] Start: 01-10-2021 FUV, Provider: Marie Devi, Status: Pen, Time: 7:00 AM FUV, Provider: Marie Devi, Status: Pen, Time: 7:00 AM [facility] Work Phone: Start: 05-31-2020 Pneumococcal vaccination Pneumococcal Vaccine (3 of 3 - PCV20 or PCV21) [facility] Start: 05-31-2020 Pneumococcal Vaccine : 50+ (3 of 3 - PCV20 or PCV21) Pneumococcal Vaccine: 50+ (3 of 3 - PCV20 or PCV21) [facility] Start: 05-31-2020 Pneumococcal Vaccine : 65+ (3 of 3 - PPSV23 or PCV20) Pneumococcal Vaccine: 65+ (3 of 3 - PPSV23 or PCV20) [facility] Start: 05-31-2020 Pneumococcal Vaccine : 65+ Years (3 - PPSV23 or PCV20) Pneumococcal Vaccine: 65+ Years (3 - PPSV23 or PCV20) [facility] Start: 01-05-2020 Xray Bone Dens ity, Dexa 1 or More Sites [facility] Work Phone: Start: 05-31-2016 Pneumococcal Vaccine : 65+ Years (#3) Pneumococcal Vaccine: 65+ Years (#3) [facility] Start: 05-31-2016 Pneumococcal Vaccine : 65+ Years (3 - PPSV23 if available, else PCV20) Pneumococcal Vaccine: 65+ Years (3 - PPSV23 if available, else PCV20) [facility] Start: 05-31-2016 Pneumococcal Vaccine : 65+ Years (3 - PPSV23 or PCV20) Pneumococcal Vaccine: 65+ Years (3 - PPSV23 or PCV20) [facility] Start: 07-31-2015 Pneumococcal Vaccine : 50+ Years (3 of 3 - PPSV23, PCV20 or PCV21) Pneumococcal Vaccine: 50+ Years (3 of 3 - PPSV23, PCV20 or PCV21) [facility] Start: 07-31-2015 Pneumococcal Vaccine : 65+ Years (3 of 3 - PPSV23 or PCV20) Pneumococcal Vaccine: 65+ Years (3 of 3 - PPSV23 or PCV20) [facility] Start: 05-07-2015 LIPID SCREEN LIPID SCREEN [facility] Start: 05-18-2013 DIABETES SCREEN DIABETES SCREEN [facility] Start: 06-18-2011 Adult depression screening assessment DEPRESSION SCREENING [facility] Start: 2011 PNEUMOCOCCAL: 65+ (1 - PCV) PNEUMOCOCCAL: 65+ (1 - PCV) [facility] Start: 2011 PNEUMOVAX AGE 65 AND OVER WITH 5YR LOOKBACK (#1) PNEUMOVAX AGE 65 AND OVER WITH 5YR LOOKBACK (#1) [facility] Start: 2006 RSV Immunization age d 60 or older (1 - 1-dose 60+ series) RSV Immunization aged 60 or older (1 - 1-dose 60+ series) [facility] Start: 2006 RSV patient s and/or patients aged 60+ years (1 - 1-dose 60+ series) RSV patients and/or patients aged 60+ years (1 - 1-dose 60+ series) [facility] Start: 2006 RSV Vaccine (1 - 1-d ose 60+ series) RSV Vaccine (1 - 1-dose 60+ series) [facility] Start: 02-01-1996 SHINGRIX VACCINE (1 of 2) SHINGRIX VACCINE (1 of 2) [facility] Start: 1991 COLOGUARD (FIT-DNA) COLOGUARD (FIT-D NA) [facility] Start: 1991 Colonoscopy COLONOSCOPY [facility] Start: 1991 COLORECTAL CANCER SCREENING COLORECTAL CANCER SCREENING [facility] Start: [address] COLONOGRAPHY [facility] Start: 1991 FECAL OCCULT BLOOD FECAL OCCULT BLOO D [facility] Start: 1991 SIGMOIDOSCOPY SIGMOIDOSCOPY Cleyola garcía [facility] Start: 02-01-1968 DTaP/Tdap/Td Vaccine s (1 - Tdap) DTaP/Tdap/Td Vaccines (1 - Tdap) [facility] Start: 1965 DTaP/Tdap/Td Vaccine s (1 - Tdap) DTaP/Tdap/Td Vaccines (1 - Tdap) [facility] Start: 1965 Urine microalbumin profile DTAP,TDAP,TD (1 - Tdap) [facility] Start: 02-01-1964 HEPATITIS C SCREENING HEPATITIS C [facility] Start: 02-01-1964 Hepatitis C screening Hepatitis C [facility] Start: 1958 Depression Screening Depression Scre ening [facility] Start: 1958 Depresssion Monitoring Depresssion M onitoring [facility] Start: 1946 Medicare Advantage Annual Wellness Visit (AWV) Medicare Advantage Annual Wellness Visit (AWV) [facility] Start: 1946 Medicare Annual Wellness Visit Medicare Annual Wellness Visit (AWV) [facility] Start: 1946 Screening for osteoporosis Bone Density Scan [facility] End: 06-03-2023 Bacteria identified in Urine by Culture [facility] [employer] Work Phone: Comment on above: Once (Lab) for 1 Occ urrences starting 06/03/2023 until 06/03/2023 End: 03-24-2024 CBC W Auto Differential panel - Blood CBC auto differential Lab STAT Malignant neoplasm of upper-outer quadrant of left breast in female, estrogen receptor positive (HCC) Once a week for 14 Occurrences starting 03/25/2023 until 03/24/2024 [facility] [employer] Work Phone: Comment on above: Once a week for 14 O ccurrences starting 03/25/2023 until 03/24/2024 End: 06-09-2024 CBC W Auto Differential panel - Blood CBC auto differential Lab STAT Malignant neoplasm of upper-outer quadrant of left breast in female, estrogen receptor positive (HCC) Every 3 weeks for 8 Occurrences starting 06/10/2023 until 06/09/2024 [facility] Phone: Comment on above: Every 3 weeks for 8 Occurrences starting 06/10/2023 until 06/09/2024 End: 03-24-2024 Comprehensive metabolic 1997 panel - Serum or Plasma Comprehensive metabolic panel Lab STAT Malignant neoplasm of upper-outer quadrant of left breast in female, estrogen receptor positive (HCC) Once a week for 14 Occurrences starting 03/25/2023 until 03/24/2024 [facility] Comment on above: Once a week for 14 O ccurrences starting 03/25/2023 until 03/24/2024 End: 06-09-2024 Comprehensive metabolic 1997 panel - Serum or Plasma Comprehensive metabolic panel Lab STAT Malignant neoplasm of upper-outer quadrant of left breast in female, estrogen receptor positive (HCC) Every 3 weeks for 8 Occurrences starting 06/10/2023 until 06/09/2024 [facility] Comment on above: Every 3 weeks for 8 Occurrences starting 06/10/2023 until 06/09/2024 End: 07-03-2023 CT Sim WO [facility] Work Phone: Comment on above: Once for 1 Occurrenc es starting 07/03/2023 until 07/03/2023 End: 03-04-2025 DBT Breast - bilateral screening LEE SCREENING [facility] Routine Visit for screening mammogram Malignant neoplasm of upper-outer quadrant of left breast in female, estrogen receptor positive (HCC) 1 Occurrences starting 02/04/2024 until 03/04/2025 [facility] Work Phone: Comment on above: 1 Occurrences starti ng 02/04/2024 until 03/04/2025 DERMATOPATHOLOGY -DERMPATH LAB DERMATOPATHOLOGY -DERMPATH LAB Pathology and Cytology Routine Pigmented skin lesion suspicious for malignant neoplasm Ordered: 10/30/2022 [facility] Work Phone: Comment on above: Ordered: 10/30/2022 End: 03-04-2024 LEE NDL LOC W LEE GD LEFT LEE NDL LOC W LEE GD LEFT Radiology Routine Malignant neoplasm of upper-outer quadrant of left breast in female, estrogen receptor positive (HCC) 1 Occurrences starting 02/03/2023 until 03/04/2024 [facility] Work Phone: Comment on above: 1 Occurrences starti ng 02/03/2023 until 03/04/2024 End: 03-04-2024 NM INJ SENTINEL NODE BREAST LEFT NM INJ SENTINEL NODE BREAST LEFT Radiology Routine Malignant neoplasm of upper-outer quadrant of left breast in female, estrogen receptor positive (HCC) 1 Occurrences starting 02/03/2023 until 03/04/2024 [facility] Work Phone: Comment on above: 1 Occurrences starti ng 02/03/2023 until 03/04/2024 SURGICAL PATHOLOGY [facility] Work Phone: Comment on above: Release Upon Orderin g for 1 Occurrences starting 01/28/2023, 1 completed End: 02-20-2024 US BIOPSY BREAST LEFT US BIOPSY BREAST LEFT Radiology Routine Abnormal finding on radiological examination of breast 1 Occurrences starting 01/21/2023 until 02/20/2024 [facility] Work Phone: Comment on above: 1 Occurrences starti ng 01/21/2023 until 02/20/2024 End: 01-18-2025 US Carotid arteries - bilateral [facility] Work Phone: Comment on above: 1 Occurrences starti ng 01/18/2025 until 01/18/2025 End: 07-31-2023 US Thyroid gland [facility] Work Phone: Comment on above: Once for 1 Occurrenc es starting 07/31/2023 until 07/31/2023 Vascular US lower extremity venous duplex left Vascular US lower extremity venous duplex left CV Vascular Ultrasound STAT Malignant neoplasm of upper-outer quadrant of left breast in female, estrogen receptor positive (HCC) Localized edema 06/03/2023 3:[address] [facility] Work Phone: [facility] Work Phone: [facility] NEGATED: Highlighted row has been ruled out! Planned Goals not documented [facility] Work Phone: Immunizations Immunization Date Immunization Notes Care Provider Zahira coronel 03-12-2024 influenza, high dose seasonal, preservative-free Cristina Stanec DO Work Phone: [facility] 03-12-2024 influenza virus vaccine, unspecified formulation Sara Ramey APRN.PEELER OPERATOR Work Phone: [facility] 09-02-2023 tetanus toxoid, redu allegra diphtheria toxoid, and acellular pertussis vaccine, adsorbed Cristina Stanec DO Work Phone: [facility] 03-13-2023 influenza virus vaccine, unspecified formulation Chair 1 [facility] 03-03-2023 Flu vaccine, quadrivalent, high-dose, preservative free, age 65y+ (FLUZONE) Marie Devi MD Work Phone: [facility] Work Phone: 03-03-2023 influenza virus vaccine, unspecified formulation Torrie Choi MD Work Phone: [facility] 02-27-2023 zoster vaccine recombinant Marie Devi MD Work Phone: [facility] Work Phone: 07-17-2022 Fluzone High-Dose Quadrivalent 0.7 ML Intramuscular Suspension Prefilled Syringe; Translations: [Fluzone High-Dose Quadrivalent 0.7 ML Intramuscular Suspension Prefilled Syringe] Marie Devi Work Phone: [facility] Work Phone: Comment on above: Series: 07-17-2022 influenza, high dose seasonal, preservative-free Marie Devi MD Work Phone: [facility] Work Phone: 07-17-2022 zoster vaccine recombinant Dara Sorensen DO Work Phone: [facility] Work Phone: 07-17-2022 influenza virus vaccine, unspecified formulation Marie Devi MD Work Phone: [facility] Work Phone: 07-12-2021 Fluzone High-Dose Quadrivalent 0.7 ML Intramuscular Suspension Prefilled Syringe; Translations: [Fluzone High-Dose Quadrivalent 0.7 ML Intramuscular Suspension Prefilled Syringe] Marie Devi Work Phone: [facility] Work Phone: Comment on above: Series: 07-12-2021 influenza, high dose seasonal, preservative-free Marie Devi MD Work Phone: [facility] Work Phone: 07-12-2021 influenza, seasonal, injectable Dara Sorensen DO Work Phone: [facility] Work Phone: 07-12-2021 influenza virus vaccine, unspecified formulation Dara Messarah DO Work Phone: [facility] Work Phone: 06-06-2021 Moderna COVID-19 Vaccine 100 MCG/0.5ML Intramuscular Suspension Marie Devi Work Phone: [facility] Work Phone: 10-14-2020 Moderna COVID-19 Vaccine 100 MCG/0.5ML Intramuscular Suspension Marie Devi Work Phone: [facility] Work Phone: 09-16-2020 Moderna COVID-19 Vaccine 100 MCG/0.5ML Intramuscular Suspension Marie Devi Work Phone: [facility] Work Phone: 07-06-2019 influenza, high dose seasonal, preservative-free; Translations: [Fluzone High-Dose 0.5 ML Intramuscular Suspension Prefilled Syringe] Marie Devi [facility] Work Phone: Comment on above: Series: 07-06-2019 influenza virus vaccine, unspecified formulation Dara Daianako DO Work Phone: [facility] Work Phone: 06-26-2018 influenza, high dose seasonal, preservative-free; Translations: [Fluzone High-Dose 0.5 ML Intramuscular Suspension Prefilled Syringe] Marie Devi [facility] Work Phone: Comment on above: Series: 06-10-2017 influenza, high dose seasonal, preservative-free; Translations: [Fluzone High-Dose 0.5 ML Intramuscular Suspension Prefilled Syringe] Marie Devi [facility] Work Phone: Comment on above: Series: 05-23-2016 influenza, seasonal, injectable Dara Sorensen DO Work Phone: [facility] Work Phone: 05-23-2016 influenza, injectabl e, quadrivalent, preservative free; Translations: [Fluarix Quadrivalent 0.5 ML Intramuscular Suspension Prefilled Syringe] [facility] Work Phone: Comment on above: Series: 05-31-2015 pneumococcal conjuga te vaccine, 13 valent; Translations: [Prevnar 13 Intramuscular Suspension] Marie Devi [facility] Work Phone: Comment on above: Series: 04-05-2015 influenza virus vaccine, unspecified formulation Dara Sorensen DO Work Phone: [facility] Work Phone: 06-01-2014 influenza, seasonal, injectable Dara Sorensen DO Work Phone: [facility] Work Phone: 06-01-2014 influenza, injectabl e, quadrivalent, preservative free; Translations: [Fluzone Quadrivalent 0.5 ML Intramuscular Suspension] Marie Devi [facility] Work Phone: Comment on above: Series: 05-27-2013 influenza virus vaccine, unspecified formulation Marie Devi Work Phone: [facility] Work Phone: Comment on above: Series: 05-27-2013 influenza, seasonal, injectable Dara Mesko DO Work Phone: [facility] Work Phone: 05-27-2013 influenza, seasonal, injectable Marie Devi [facility] Work Phone: 04-03-2012 influenza, seasonal, injectable Dara Mesko DO Work Phone: [facility] Work Phone: 04-02-2012 influenza virus vaccine, unspecified formulation Marie Devi Work Phone: [facility] Work Phone: Comment on above: Series: 04-02-2012 influenza, seasonal, injectable Marie Devi [facility] Work Phone: 07-31-2010 influenza virus vaccine, unspecified formulation Marie Devi Work Phone: [facility] Work Phone: Comment on above: Series: 07-31-2010 pneumococcal polysaccharide vaccine, 23 valent Marie Devi Work Phone: [facility] Work Phone: Comment on above: Series: 07-31-2010 pneumococcal vaccine , unspecified formulation Marie Devi Work Phone: [facility] Work Phone: 07-31-2010 influenza, seasonal, injectable Marie Devi [facility] Work Phone: 07-31-2010 pneumococcal polysaccharide vaccine, 23 valent Marie Devi [facility] Work Phone: influenza virus vaccine, unspecified formulation Marie Devi Work Phone: [facility] Work Phone: Comment on above: Approx [id number] Ser ies: influenza, seasonal, injectable Marie Devi [facility] Work Phone: Comment on above: Approx [id number] Payers Date Payer Category Payer Self-pay 2023 Miscellaneous or Other [employer] [id number] 2019 Medicare HMO HU[employer]NA MEDICARE [id number] 2013 Medicare HUMANA MEDICARE HUMANA MEDICARE O [id number] 2013-Present [phone] [place] [address] [id number] 2013 Medicare [id number] 2013 Medicare (Managed Care) 1.2. [id number] 2013 Private Health Insurance [id number] 1945 Unknown [id number]. 2.356 1945 Unknown [id number] [id number]. 2.356 1945 Unknown [id number] [id number]. 2.1245 1945 Unknown [id number] [id number]. 2.124 1945 Unknown [id number] [id number]. 2.124 1945 Unknown [id number] [id number]. 2.1244 1945 Unknown [id number] [id number]. 2.1245 1945 Unknown [id number] [id number]. 2.124 1945 Unknown [id number] [id number]. 2.1244 Unknown Unknown [id number] [id number]. 2.462 Unknown [id number] [id number]. 2.462 Unknown [id number] [id number]. 2.462 Unknown [id number] [id number]. 2.462 Unknown [id number]. 2.462 Social History Date Type Detail Facility Start: 10-29-2022 End: 11-27-2022 Never a smoker Never a smoker [facility] Start: 08-11-2013 End: 10-24-2022 Tobacco smoking status UTIS Never smoked tobacco [facility] Start: 01-17-2020 End: 12-09-2024 Alcohol intake Current non-drinker of alcohol (finding) [facility] Start: 1945 Sex Assigned At Not on file [facility] Start: 09-11-2021 End: 09-17-2024 Exposure to SARS-CoV-2 (event) Not sure [facility] Start: 08-11-2013 End: 10-24-2022 Tobacco use and exposure Smokeless tobacco non-user [facility] Work Phone: Start: 10-29-2022 End: 11-27-2022 Gender identity Not on file [facility] Start: 05-24-2012 National Score (1-100), lower number is lower risk 51 [facility] Start: 01-23-2023 End: 09-17-2024 Alcohol intake Ex-drinker (finding) [facility] Work Phone: How often to you hav e a drink containing alcohol? Never [facility] Has the REALTIME.CO, gas, oil, or water [place] threatened to shut off services in your home in past 12Mo No [facility] (I/We) worried whether (my/our) food would run out before (I/we) got money to buy more. Never true [facility] How often do you nee d to have someone help you when you read instructions, pamphlets, or other written material from your doctor or pharmacy [SILS] Patient unable to respond [facility] Work Phone: Start: 02-27-2023 Sex Female (finding) [facility] How often do you nee d to have someone help you when you read instructions, pamphlets, or other written material from your doctor or pharmacy [SILS] Always [facility] Work Phone: History of tobacco use Passive smoker [facility] NEGATED: Highlighted row - - [facility] Work Phone: NEGATED: Highlighted rowSnicort: SHEA History of tobacco use Passive smoker [facility] Work Phone: Functional Status Date Assessment Result Facility 09-17-2024 Generalized anxiety disorder 7 item (CLIFTON-7) [facility] Work Phone: 09-17-2024 Patient Health Questionnaire 2 item (PHQ-2) [Reported] [facility] Work Phone: 09-17-2024 PHQ-9 quick depressi on assessment panel [Reported.PHQ] [facility] Work Phone: 10-14-2023 Are you deaf, or do you have serious difficulty hearing No 10/14/2023 3:43 PM EDT Claudia Carter LPN No [facility] 10-14-2023 Are you blind, or do you have serious difficulty seeing, even when wearing glasses No 10/14/2023 3:43 PM EDT Claudia Carter LPN No [facility] 10-14-2023 Do you have serious difficulty walking or climbing stairs Yes 10/14/2023 3:43 PM EDT Claudia Carter LPN Yes [facility] 10-14-2023 Do you have difficul ty dressing or bathing Yes 10/14/2023 3:43 PM EDT Claudia Carter LPN Yes [facility] 10-14-2023 Because of a physica l, mental, or emotional condition, do you have difficulty doing errands alone such as visiting a physician's office or shopping Yes 10/14/2023 3:43 PM EDT Claudia Carter LPN Yes [facility] Work Phone: NEGATED: Highlighted row Functional performance Functional status health issues are not documented Disease [facility] Work Phone: Mental Status Date Assessment Result Facility 10-14-2023 Because of a physical, mental, or emotional condition, do you have serious difficulty concentrating, remembering, or making decisions Yes 10/14/2023 3:43 PM EDT Claudia Carter LPN Yes [facility] NEGATED: Highlighted row Cognitive function [Interpretation] Cognitive status health issues are not documented Disease [facility] Work Phone: Clinical Notes 07-13-2020 to 01-18-2025 [facility] - Yajaira Bautista, RT(R) - 01/18/2025 1:15 PM EDTAllied Health - Yajaira Bautista, RT(R) - 01/18/2025 1:15 PM EDTTelephone Encounter - Sara Ramey APRN.PEELER OPERATOR - 01/12/2025 5:00 PM EDT Note Date [...] PATIENT PRESENTS WITH AN IMPLANTABLE OR ATTACHED PILL PACKER: No RADIOLOGY DEPARTMENT: Ultrasound PERIPHERAL IV DATA: Not applicable SIGNED BY: RT Akash(R) January 18, 2025 1:32 PM documented in this encounter [facility] 01-18-2025 Progress note Formatting of t [...] PATIENT PRESENTS WITH AN IMPLANTABLE OR ATTACHED PILL PACKER: No RADIOLOGY DEPARTMENT: Ultrasound PERIPHERAL IV DATA: Not applicable SIGNED BY: RT Akash(Alanna) January 18, 2025 1:32 PM [facility] 01-12-2025 Telephone encounter Note Spoke with pt's daughter Sg with patient's permission. She had called in [...] will consider switching her over to vimpat. Sg will keep us updated. Also discussed that [...] plan to follow up with me in [place] 02/14 to review results and see how things are going. Kya, can you help me communicate with [facility] in [place] regarding adding aspirin 81mg daily, and asking them to schedule her carotid ultrasound (they can use [phone])? The daughter wasn't sure whether she's supposed to schedule appts or if they do to arrange rides ,etc. I will amend her AVS from 01/03 so can use that as documentation. Thank you!! This is the address: [address], [place] [address] [facility] Work Phone: 01-12-2025 Miscellaneous Notes Spoke with pt's daughter Sg with patient's permission. She had called in [...] will consider switching her over to vimpat. Sg will keep us updated. Also discussed that [...] plan to follow up with me in [place] 02/14 to review results and see how things are going. Kya, can you help me communicate with [facility] in [place] regarding adding aspirin 81mg daily, and asking them to schedule her carotid ultrasound (they can use [phone])? The daughter wasn't sure whether she's supposed to schedule appts or if they do to arrange rides ,etc. I will amend her AVS from 01/03 so can use that as documentation. Thank you!! [address] is the [address]: [address] [place] [phone] documented in this encounter [facility] 01-07-2025 Telephone encounter Note Situation: Called [...] Encounter routed to provider for her information. [facility] 01-07-2025 Miscellaneous Notes Situation: Called and [...] disclose health information with called documented in fy. Patient identified by Name and Date of . ( Madiha Perales, 1945). Yes Number to return call [phone] Reason for Call: Patient Question/Update: Patient's daughter calling because since dosage change patient has been way more confused, daughter wondering if it should be once a day or twice a day. Thank you calling [facility]. You will receive a return call within 48 hours ( or 2 business days if close to the weekend). If you feel that this is an urgent issue and needs immediate attention, it is recommended that you contact your primary care provider office or proceed to your nearest Urgent Care Center of Emergency Room ED for evaluation/treatment. documented in this encounter [facility] 01-07-2025 Telephone encounter Note Situation: Called [...] Recommendation: Encounter routed to provider for review. [facility] 01-07-2025 Telephone encounter Note CV PHONE Name of caller : Stevie Relationship to patient : Daughter If not self Will need patient permission to release results or disclose health information with called documented in fyi. Patient identified by Name and Date of . ( Madiha Perales, 1945). Yes Number to return call [phone] Reason for Call: Patient Question/Update: Patient's daughter calling because since dosage change patient has been way more confused, daughter wondering if it should be once a day or twice a day. Thank you calling [facility]. You will receive a return call within 48 hours ( or 2 business days if close to the weekend). If you feel that this is an urgent issue and needs immediate attention, it is recommended that you contact your primary care provider office or proceed to your nearest Urgent Care Center of Emergency Room ED for evaluation/treatment. [facility] 01-03-2025 Instructions Sara Ramey APRN.PEELER OPERATOR - 01/03/2025 11:24 AM EDT Images from the original note were not included. Regarding your visit with Nurse Practitioner Sara Ramey today at the [facility] we discussed the following: [...] Recommendations: Schedule follow up with Epilepsy. Call [phone] Continue nathen Will review imaging with Staff [...] if you have any questions Sara Ramey [facility] Nurse Practitioner [place], [place] [address] Office: [phone] Appointments: [phone] Stroke Signs and Symptoms: *Stroke is a [...] diet rich in fruits and vegetables (https://www.nhlbi.nih.gov/educati on/ityz-qbkoru-bmht) - Consider Mediterranean diet supplemented with nuts [...] of an exercise program by a health customer care professional such as a physical therapist or cardiac [...] for their cardiovascular health Adapted from the [place] Heart Association/[place] Stroke Association: 202 Guideline for the Prevention of Stroke in Patients With Stroke and Transient Ischemic Attack documented in this encounter [facility] 01-03-2025 History of Present illness Narrative Images from the original note were not included. [facility] Established Visit Consultation is requested by: Racheal De La Rosa [address] [facility] [address] PCP: Marie Devi [address] [facility] [address] [place] [address] CEREBROVASCULAR HISTORY Madiha Perales is a 79 year old female presenting for hospital discharge follow up. Admitted to [facility] 12/03-12/10/24. From discharge summary Patient at baseline [...] currently doing electrolyte jello -gets therapy at [facility] -she has fluctuating mental status and physical capabilities -in hospital was started on Keppra due to potential epileptogenicity on EEG -needs to see Epilepsy clinic -overall happy disposition -denies any side effects to keppra including drowsiness, dizziness, irritability -has only complained of one headache since discharge -taking gabapentin BID -no GCA on temporal artery biopsy -follows with a Neurologist at [facility] for Parkinsons PAST MEDICAL HISTORY [...] which included preparing to see the patient, [id number] patient care, completing clinical documentation, obtaining and/or reviewing separately obtained history, performing a medically appropriate examination, counseling and educating the patient/family/caregiver, communicating with other HCPs (not separately reported), independently interpreting results (not separately reported), communicating results to the patient/family/caregiver, and care coordination (not separately reported) SIGNATURE Sara Ramey APRN.CNP CC Racheal De La Rosa [address] [facility] [address] Marie Devi [address] [place] [id number] documented in this encounter [facility] 01-03-2025 Note HNO ID: [id number] Author: SARA RAMEY APRN.CNP Service: ? Author Type: Nurse Practitioner Type: Progress Notes Filed: 01/12/2025 17:21 Note Text: [facility] CENTER Established Visit Consultation is requested by: Racheal De La Rosa [address] [place] [id number] PCP: Marie Devi [facility] [place] [phone] CEREBROVASCULAR HISTORY Madiha Perales is a 79 year old female presenting for hospital discharge follow up. Admitted to [facility] 12/03-12/10/24. From discharge summary Patient at baseline [...] currently doing electrolyte jello -gets therapy at [facility] -she has fluctuating mental status and physical capabilities -in hospital was started on Keppra due to potential epileptogenicity on EEG -needs to see Epilepsy clinic -overall happy disposition -denies any side effects to keppra including drowsiness, dizziness, irritability -has only complained of one headache since discharge -taking gabapentin BID -no GCA on temporal artery biopsy -follows with a Neurologist at [facility] for Parkinsons PAST MEDICAL HISTORY [...] Stroke Maternal Grandfather (more content not included)... [facility] 12-10-2024 Note HNO ID: [id number] Author: SHAW KINSEY MD Service: Hospital Medicine Author Type: Physician Type: Progress Notes Filed: 12/19/2024 08:38 Note Text: Documentation Query Please clarify the significance of the pathology report I agree with the pathology findings dated 12/09/2024 which confirms no arteritis This document will become part of the patient's medical record. [facility] 12-10-2024 Note HNO ID: [id number] Author: JENNIFER CHAUDHRY RN Service: Care Management Author Type: Registered Nurse Type: Care Mgt Progress Note Filed: 12/10/2024 13:32 Note Text: CARE MANAGEMENT DISCHARGE NOTE SERVICE DATE: December 10, 2024 SERVICE TIME: 1:29 PM Admission Date: 12/03/2024 LOS: 2 days Discharge Arrangement Discharge Arrangement: Snf Facility Was an expedited discharge program used?: No Services Arranged SNF Placement Provider Name: [facility] Caregiver Assessment Caregiver is ready, willing and able to meet the patient's needs as recommended by the inter-professional team: Yes Name of Caregiver: [facility] Transportation Arrangements Transportation Arrangements: Ambulance Transportation Agency and Phone #:: [facility] [phone] Date of Trip: 12/10/24 Time of Trip: 6900 Type of Service: BLS Non-emergency Is Patient Medicaid Pending?: No Was transportation financial coverage discussed with family?: Patient, Family [employer] Location: [place] Destination: SNF Handoff Communication: Handoff to: Primary Care Physician Primary Care Physician Name/Phone: Dr Devi SOC sent Additional Information: Per MD patient has been cleared for dc today Patient will dc to [facility] SNF under private pay skilled services at [...] DATE: December 10, 2024 TIME: 1:29 PM [facility] 12-10-2024 Note HNO ID: [id number] Author: TORRIE CHOI MD Service: General Surgery Author Type: Physician Type: Plan of Care Filed: 12/10/2024 11:57 Note Text: Doing well - wound healing, no hematoma. OK for discharge. Will call with path results. No follow up needed. [facility] 12-09-2024 Note HNO ID: [id number] Author: VIKASH AGEE JR, MD Service: Neurology General Author [...] Nursing notes indicate pain level of 0. Vikash Agee MD [facility] 12-09-2024 Note HNO ID: [id number] Author: SHAW KINSEY MD Service: Hospital Medicine [...] -- 1.3 0.7 CHEM: Recent Labs 12/08/24 04512/07/24 0446 12/06/24 0758 NA 140 141 139 [...] a sporadic cough (more content not included)... [facility] 12-08-2024 Note HNO ID: [id number] Author: SHAW KINSEY MD Service: Care Management [...] DATE: December 08, 2024 TIME: 2:01 PM [facility] 12-08-2024 Note HNO ID: [id number] Author: SHAW KINSEY MD Service: Hospital Medicine [...] -- 1.3 0.7 CHEM: Recent Labs 12/08/24 04512/07/24 0446 12/06/24 0758 NA 140 141 139 [...] STATUS currently will (more content not included)... [facility] 12-08-2024 Note HNO ID: [id number] Author: DANAY DUBOSE PA-C Service: General Surgery Author Type: Physician Hemodialysis Lab Technician Type: Plan of Care Filed: 12/08/2024 09:23 Note Text: Patient on the OR schedule tomorrow with Dr. Choi for temporal artery biopsy. NPO after midnight for OR. SIGNATURE: Danay Dubose PA-C PATIENT NAME: Madiha Perales DATE: December 08, 2024 TIME: 9:21 AM [facility] 12-08-2024 Note HNO ID: [id number] Author: JENNIFER CHAUDHRY RN Service: Care Management Author Type: Registered Nurse Type: Care Mgt Progress Note Filed: 12/08/2024 14:05 Note Text: CARE MANAGEMENT PROGRESS NOTE SERVICE DATE: 12/08/2024 SERVICE TIME: 8:21 AM LOS: 0 days Needs Prior to Discharge: Other: See Comment Per [facility] Per front office medical assistant at [facility] offer a p2p for SNF pre-cert. P2P needs to be completed by 11:40am on 12/08. P2P phone # [phone] opt. 1 CM updated attending MD 10:30- Per MD P2P completed and upheld CM met with patient, spouse and daughter at bedside to provide update At this time they would like to private pay for SNF Requesting to ask [facility] [place], [facility] and [facility] if they would accept private pay Referrals updated 14:00- CM met with family at bedside and provided update on private pay response from facilities [facility] will accept for SNF under private pay Family agreeable. CM spoke with emergency medical service coordinator Hanna number given for business department to discuss financial piece, CM provided to daughter Per Hanna she is unable to accept wkend DC Requesting [facility] Family requesting medical transport SIGNATURE: Jennifer Chaudhry RN PATIENT NAME: Madiha Perales DATE: December 08, 2024 TIME: 8:21 AM [facility] 12-07-2024 Note HNO ID: [id number] Author: SHAW KINSEY MD Service: Hospital Medicine [...] CCA DNI *Leno (more content not included)... [facility] 12-07-2024 Note HNO ID: [id number] Author: GRETEL NELSON RN Service: Care Management Author Type: Registered Nurse Type: Care Mgt Progress Note Filed: 12/07/2024 12:28 Note Text: CARE MANAGEMENT PROGRESS NOTE SERVICE DATE: 12/07/2024 SERVICE TIME: 12:27 PM LOS: 0 days Needs Prior to Discharge: Precertification, Discharge Transportation CT ordered for FRY. CM spoke to karmen Acuna via phone. Confirmed [place] is FOC and accepting. Precert initiated. Will need dc transport. SIGNATURE: Gretel Nelson RN PATIENT NAME: Madiha Perales DATE: December 07, 2024 TIME: 12:27 PM [facility] 12-06-2024 Note HNO ID: [id number] Author: SHAW KINSEY MD Service: Hospital Medicine [...] using voice evelyne (more content not included)... [facility] 12-06-2024 Note HNO ID: [id number] Author: JENNIFER CHAUDHRY RN Service: Care Management [...] rec SNF Family agreeable with referral to [place] [facility] Per family still reviewing for additional SNF choices 1553- CM met with patient and family [place] still reviewing Family/patient requesting referrals to [address] [place] [address] to follow up with daughter Stevie Castelan) at [phone] with all SNF responses SIGNATURE: Jennifer Chaudhry RN PATIENT NAME: Madiha Perales DATE: December 06, 2024 TIME: 2:31 PM [facility] 12-05-2024 Note HNO ID: [id number] Author: SHAW KINSEY MD Service: Hospital Medicine [...] Shaw Kinsey MD PATIENT NAME: Madiha Perales [facility] 12-05-2024 Note HNO ID: [id number] Author: JEMIMA WITT RN Service: Care Management Author Type: Registered Nurse Type: Care Mgt Initial Assessment Filed: 12/05/2024 11:49 Note Text: CARE MANAGEMENT: ASSESSMENT AND DISCHARGE PLAN SERVICE DATE: December 05, 2024 SERVICE TIME: 09:59 am PCP: Marie Devi MD ([facility]) Primary Contact: Extended Emergency Contact Information Primary Emergency Contact: Stevie Koch Relation: Daughter Secondary Emergency Contact: Marcos Perales Relation: Spouse Admission Status: Observation Insurance Provider: [employer] MEDICARE PPO Discharge Planning requested by: Per Department Practice Potential Transition Plans Snf Facility/Intermediate Care Facility, To Be Determined Advance Directives Current Advance Directive: Health Care Power of Fire Protection Engineer, Living Will In Chart: No Salon Stylist Attempted to Assist with AD Completion: Yes [...] Be able to go home, Better mobility [place] of Choice Explained: [place] of Choice Given: Yes Level of Care Discussed: Snf Facility Are you interested in bedside delivery [...] assessment completed with spouse. Patient presented to [facility] ED c/o confusion. Patient admitted to Observation [...] pre-cert. CM will continue to follow. SIGNATURE: Jemima Witt RN PATIENT NAME: Madiha Perales DATE: December 05, 2024 TIME: 11:44 AM [facility] 12-04-2024 Note HNO ID: [id number] Author: SHAW KINSEY MD Service: Hospital Medicine [...] Shaw Kinsey MD PATIENT NAME: Madiha Perales [facility] 12-03-2024 Note SARS-COV-2 (AGENT OF COVID-19) RNA: Not detected INFLUENZA A RNA: Not detected INFLUENZA B RNA: Not detected RESPIRATORY SYNCYTIAL VIRUS (RSV) RNA: Not detected [facility] Comment on above: Performed By: #### 9 [id number] ####[facility] [id number] [place] [address] [facility] 10-10-2024 Evaluation + Plan note Associated Problem(s): Depression with anxiety Currently on Cymbalta, feels like she has a good dose. Has better days where parksinson's isn't as much an issue, but having more an more bad days. - Continue current dose, no changes. [facility] Work Phone: 10-10-2024 Miscellaneous Notes Associated Problem(s): Depression with anxiety Currently on Cymbalta, feels like she has a good dose. Has better days where parksinson's isn't as much an issue, but having more an more bad days. - Continue current dose, no changes. documented in this encounter [facility] Work Phone: 09-17-2024 History of Present illness Narrative Images from the original note were not included. FAMILY MEDICINE ANNUAL MEDICARE WELLNESS VISIT Madiha Perales [id number] 1945 PCP: Cristina Santos DO Chief Complaint: Chief Complaint Patient presents with Medicare Annual Wellness Visit Subsequent Pt presents for annual MWV- ABN was given to pt and signed, pt verbalized understanding. SUBJECTIVE Madiha Perales is a 79 y.o. Nigerian-speaking female with pertinent PMHx of Parkinsons, who presents to the clinic for their annual medicare wellness visit. Patient is new to me as PCP, as Dr. Devi left the practice in June. Parkinson - Upted CL to 1.5mg TID -- that is highest - Leg to walk they aren't operating - No tremors - Doesn't - Went to [facility] down in [place] - He usually goes to [facility] - Plan to do that Tues and Thurs Breast Cancer Hx of CVA - Recovered better than ever before - Went back to normal. Current Providers List Patient Care Team: Cristina Santos DO as PCP - General (Family [...] Resource Strain: Low Risk (10/17/2023) Received from [facility] Medical Overall Financial Resource Strain (CARDIA) Difficulty of Paying Living Expenses: Not hard at all Food Insecurity: No Food Insecurity (10/17/2023) Received from [facility] Hunger Vital Sign Worried About Running Out of Food in the Last Year: Never true Ran Out of Food in the Last Year: Never true Transportation Needs: No Transportation Needs (11/27/2023) OASIS A1250: Transportation Lack of Transportation (Medical): No Lack of Transportation (Non-Medical): No Patient Unable or Declines to Respond: No Stress: Stress Concern Present (10/28/2023) Received from [facility] [employer] of Occupational Health - Occupational Stress Questionnaire Feeling of Stress : Rather much Social Connections: Feeling Socially Integrated (11/27/2023) OASIS D0700: Social Isolation Frequency of experiencing loneliness or isolation: Never Intimate Partner Violence: Patient Unable To Answer (10/15/2023) Received from [facility] Domestic Abuse Assessment Do you feel safe in your relationships at home?: Unable to assess Physical Abuse: Unable to assess Verbal Abuse: Unable to assess Housing Stability: Unknown (10/17/2023) Received from [facility] Housing Stability Vital Sign Unable to Pay [...] provided personalized prevention plan. We discussed the [facility] Code Status and patient is: DNR Comfort Care Arrest at this time. Form can be found in media tab, patient has original with them. I recommended they hang the DNR form on the fridge or other place easy to see in their home or in their wallet. We discussed advanced care planning and end of life care. Patient provided blank copy of [facility] Advanced Directives packet, which includes HCPOA and Living Will Declaration. Patient's Advanced Directives are as follows: DNI/DNR Patient instructions with the written plan were provided to the patient. Advance Directives Discussion 16 - 20 minutes were spent discussing Advanced Care Planning (including a Living Will, Medical Power Of Fire Protection Engineer, as well as specific end of life [...] part of this note was constructed with Canara dictation software. Cristina Santos DO, Sabrina [facility] Office: 09/17/2024 10:15 PM documented in this encounter [facility] Work Phone: 08-10-2024 History of Present illness Narrative Hematology/Oncology Office Visit Oncology History: 1) stage 1A left breast cancer, invasive ductal carcinoma grade 3. ER+ ID+ HER2+. cT1b N0 M0; pT1c N0 M0, diagnosed 01/28/23. - Patient is a 78 yo F who presented with an abnormal screening mammogram of the upper outer quadrant of the left breast on 11/27/22. Diagnostic imaging and ultrasound were performed on 01/21/2023: a 0.9 x 0.9 x 1 cm irregular mass in the left breast. 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 The patient underwent lumpectomy and sentinel node removal on 02/18/[address] Choi at [facility]: pathology revealed grade 3 invasive ductal carcinoma measuring 1.9 cm. There was focal DCIS and extensive lymphovascular invasion. Margins were negative for invasive and in situ component at greater than 2 mm. 6 axillary nodes were removed: 5 sentinel and 1 nonsentinel. All were negative. Pathologically staged T1CN0. - she was referred to [facility] for medical and radiation oncology. Her [...] She had a bilateral screening mammogram at [facility] on 03/25/24 which was negative for [...] calcifications on mammogram 07/24/2013 Cerebrovascular accident (CVA) ([facility]) 06/23/2009 Social History Tobacco Use [...] 09/23/2023 0.0 <0.1 10*3/uL Final SODIUM - [facility] 09/23/2023 140 128 - 145 mEq/L Final POTASSIUM - [facility] 09/23/2023 3.8 3.6 - 5.1 mEq/L Final CHLORIDE - [facility] 09/23/2023 104 98 - 108 mEq/L Final CARBON DIOXIDE - [facility] 09/23/2023 27 18 - 33 mEq/L Final ANION GAP - [facility] 09/23/2023 9.00 -4.00 - 12.00 mmol/L Final UREA NITROGEN - [facility] 09/23/2023 19 7 - 22 mg/dL Final CREATININE - [facility] 09/23/2023 0.8 0.6 - 1.2 mg/dL Final GLUCOSE - [facility] 09/23/2023 133 (H) 73 - 118 mg/dL Final CALCIUM - [facility] 09/23/2023 9.3 8.0 - 10.3 mg/dL Final AST(SGOT) - [facility] 09/23/2023 29 11 - 38 U/L Final ALT - [facility] 09/23/2023 20 10 - 47 U/L Final ALKALINE PHOSPHATASE - [facility] 09/23/2023 83 42 - 141 U/L Final ALBUMIN - [facility] 09/23/2023 3.4 3.3 - 5.5 g/dL Final BILIRUBIN, TOTAL - [facility] 09/23/2023 0.7 0.2 - 1.6 mg/dL Final TOTAL PROTEIN - [facility] 09/23/2023 6.5 6.4 - 8.1 g/dL Final EGFR - [facility] 09/23/2023 76.0 >60.0 mL/min/1.73m*2 Final Imaging Reviewed: [...] tomosynthesis 1) stage 1A left breast cancer ER+/ID+/HER2+ pT1c pN0 cM0 s/p left partial mastectomy [...] this encounter [facility] 08-02-2024 Telephone encounter Note Refill request received for anastrazole. Prescription pended. [facility] 08-02-2024 Miscellaneous Notes Refill request received for anastrazole. Prescription pended. documented in this encounter [facility] 03-16-2024 History of Present illness Narrative RADIATION ONCOLOGY FOLLOW UP PATIENT: Madiha Perales DATE OF SERVICE: 03/16/2024 : 1945 AGE: 79 y.o. PRIMARY SITE AND HISTOPATHOLOGY: Left breast, grade 3 invasive ductal carcinoma, ER positive, ID positive, HER2 positive. STAGE: cT1b N0 M0, [...] the left breast. Biopsy was performed at [facility] on 01/28/2023. This revealed grade 3 invasive ductal carcinoma measuring at least 8 mm in dimension. ER positive at 100%, ID positive at 70% and HER2 positive at [...] distance. She is undergoing physical therapy at [facility] physical therapy. She denies any breast [...] PLAN: Return to office in 1 year. Jarrell Diego MD Total time: 24 minutes in chart review, lab/radiology evaluation/interpretation, patient exam, patient counseling and care coordination. [facility] Department of Radiation Oncology is an Accredited Facility of the [employer] (ACR). This document was [...] provider for clarification. documented in this encounter [facility] 03-16-2024 Nurse Note The patient is here at [facility] with her for follow up with Dr. Diego. She arrived in a wheelchair. She uses a care or walker at times to ambulate around the house. She does physical therapy at [facility]. She denies pain at the current time. She denies skin issues at the previous site of radiation. Her appetite and sleeping are "good". Her energy level is fair. She is taking Arimidex as prescribed. She is scheduled for her next mammogram in March of 2024. She continues to follow up with Dr. Choi and Dr. Escobedo. [facility] 03-16-2024 Nurse Note The patient is here at [facility] with her for follow up with Dr. Diego. She arrived in a wheelchair. She uses a care or walker at times to ambulate around the house. She does physical therapy at [facility]. She denies pain at the current time. She denies skin issues at the previous site of radiation. Her appetite and sleeping are "good". Her energy level is fair. She is taking Arimidex as prescribed. She is scheduled for her next mammogram in March of 2024. She continues to follow up with Dr. Choi and Dr. Escobedo. documented in this encounter [facility] 02-19-2024 Note HNO ID: [id number] Author: TORRIE CHOI MD Service: ? Author [...] breast in female, estrogen receptor positive (HCC) [facility] Oncology Notes under scanned Documents INTERVAL [...] for today's visit: none Torrie Choi MD [facility] 02-19-2024 History of Present illness Narrative PROGRESS [...] breast in female, estrogen receptor positive (HCC) [facility] Oncology Notes under scanned Documents INTERVAL [...] Torrie Choi MD documented in this encounter [facility] 02-18-2024 History of Present illness Narrative [...] or grammatical errors documented in this encounter [facility] Work Phone: 02-04-2024 Telephone encounter Note Voice message left for patient re order Advised to call office if further questions or concerns. Number provided to call. Encounter closed. [facility] 02-04-2024 Miscellaneous Notes Voice message left for patient re order Advised to call office if further questions or concerns. Number provided to call. Encounter closed. Orders signed. Order placed per patient's request for mammogram and/or breast ultrasound. Routed to provider/MD to approve. Dr. Grubbs's office called to ask when patient needed scheduled for her next mamogram documented in this encounter [facility] 02-04-2024 Telephone encounter Note Orders signed. [facility] Work Phone: 02-03-2024 Telephone encounter Note Order placed per patient's request for mammogram and/or breast ultrasound. Routed to provider/MD to approve. [facility] 02-03-[address] Grubbs's office called to ask when patient needed scheduled for her next mamogram [facility] 02-03-2024 Telephone encounter Note Refill for Arimidex pended to be signed if agreeable. [facility] 02-03-2024 Miscellaneous Notes Refill for Arimidex pended to be signed if agreeable. documented in this encounter [facility] 02-03-2024 History of Present illness Narrative Hematology/Oncology Office Visit Oncology History: 1) stage 1A left breast cancer, invasive ductal carcinoma grade 3. ER+ ID+ HER2+. cT1b N0 M0; pT1c N0 M0, diagnosed 01/28/23. - Patient is a 78 yo F who presented with an abnormal screening mammogram of the upper outer quadrant of the left breast on 11/27/22. Diagnostic imaging and ultrasound were performed on 01/21/2023: a 0.9 x 0.9 x 1 cm irregular mass in the left breast. 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 The patient underwent lumpectomy and sentinel node removal on 02/18/[address] Choi at [facility]: pathology revealed grade 3 invasive ductal carcinoma measuring 1.9 cm. There was focal DCIS and extensive lymphovascular invasion. Margins were negative for invasive and in situ component at greater than 2 mm. 6 axillary nodes were removed: 5 sentinel and 1 nonsentinel. All were negative. Pathologically staged T1CN0. - she was referred to [facility] for medical and radiation oncology. Her [...] apnea) The patient wears CPAP Parkinson disease ([facility]) Stroke ([facility]) 2009 Torn meniscus Uterine cancer ([facility]/HCC) (HCC) 2005 Past Surgical History: Procedure [...] 09/23/2023 0.0 <0.1 10*3/uL Final SODIUM - [facility] 09/23/2023 140 128 - 145 mEq/L Final POTASSIUM - [facility] 09/23/2023 3.8 3.6 - 5.1 mEq/L Final CHLORIDE - [facility] 09/23/2023 104 98 - 108 mEq/L Final CARBON DIOXIDE - [facility] 09/23/2023 27 18 - 33 mEq/L Final ANION GAP - [facility] 09/23/2023 9.00 -4.00 - 12.00 mmol/L Final UREA NITROGEN - [facility] 09/23/2023 19 7 - 22 mg/dL Final CREATININE - [facility] 09/23/2023 0.8 0.6 - 1.2 mg/dL Final GLUCOSE - [facility] 09/23/2023 133 (H) 73 - 118 mg/dL Final CALCIUM - [facility] 09/23/2023 9.3 8.0 - 10.3 mg/dL Final AST(SGOT) - [facility] 09/23/2023 29 11 - 38 U/L Final ALT - [facility] 09/23/2023 20 10 - 47 U/L Final ALKALINE PHOSPHATASE - [facility] 09/23/2023 83 42 - 141 U/L Final ALBUMIN - [facility] 09/23/2023 3.4 3.3 - 5.5 g/dL Final BILIRUBIN, TOTAL - [facility] 09/23/2023 0.7 0.2 - 1.6 mg/dL Final TOTAL PROTEIN - [facility] 09/23/2023 6.5 6.4 - 8.1 g/dL Final EGFR - [facility] 09/23/2023 76.0 >60.0 mL/min/1.73m*2 Final Imaging Reviewed: [...] (HCC) 1) stage 1A left breast cancer ER+/ID+/HER2+ pT1c pN0 cM0 s/p left partial mastectomy [...] up with Dr. Choi for mammograms at [facility]. Call placed to her office today [...] this encounter [facility] 11-11-2023 History of Present illness Narrative [...] was improved enough to be discharged to [facility], where she got PT, OT, speech therapy. [...] or grammatical errors documented in this encounter [facility] Work Phone: 11-04-2023 History of Present illness Narrative Hematology/Oncology Office Visit Oncology History: 1) stage 1A left breast cancer, invasive ductal carcinoma grade 3. ER+ ID+ HER2+. cT1b N0 M0; pT1c N0 M0, diagnosed 01/28/23. - Patient is a 78 yo F who presented with an abnormal screening mammogram of the upper outer quadrant of the left breast on 11/27/22. Diagnostic imaging and ultrasound were performed on 01/21/2023: a 0.9 x 0.9 x 1 cm irregular mass in the left breast. 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 The patient underwent lumpectomy and sentinel node removal on 02/18/[address] Choi at [facility]: pathology revealed grade 3 invasive ductal [...] calcifications on mammogram 07/24/2013 Cerebrovascular accident (CVA) ([facility]) 06/23/2009 Social History Tobacco Use [...] 09/23/2023 0.0 <0.1 10*3/uL Final SODIUM - [facility] 09/23/2023 140 128 - 145 mEq/L Final POTASSIUM - [facility] 09/23/2023 3.8 3.6 - 5.1 mEq/L Final CHLORIDE - [facility] 09/23/2023 104 98 - 108 mEq/L Final CARBON DIOXIDE - [facility] 09/23/2023 27 18 - 33 mEq/L Final ANION GAP - [facility] 09/23/2023 9.00 -4.00 - 12.00 mmol/L Final UREA NITROGEN - [facility] 09/23/2023 19 7 - 22 mg/dL Final CREATININE - [facility] 09/23/2023 0.8 0.6 - 1.2 mg/dL Final GLUCOSE - [facility] 09/23/2023 133 (H) 73 - 118 mg/dL Final CALCIUM - [facility] 09/23/2023 9.3 8.0 - 10.3 mg/dL Final AST(SGOT) - [facility] 09/23/2023 29 11 - 38 U/L Final ALT - [facility] 09/23/2023 20 10 - 47 U/L Final ALKALINE PHOSPHATASE - [facility] 09/23/2023 83 42 - 141 U/L Final ALBUMIN - [facility] 09/23/2023 3.4 3.3 - 5.5 g/dL Final BILIRUBIN, TOTAL - [facility] 09/23/2023 0.7 0.2 - 1.6 mg/dL Final TOTAL PROTEIN - [facility] 09/23/2023 6.5 6.4 - 8.1 g/dL Final EGFR - [facility] 09/23/2023 76.0 >60.0 mL/min/1.73m*2 Final Imaging Reviewed: [...] (HCC) 1) stage 1A left breast cancer ER+/ID+/HER2+ pT1c pN0 cM0 s/p left partial mastectomy [...] up with Dr. Choi for mammograms at [facility] - signs and symptoms of breast [...] this encounter [facility] 10-06-2023 Telephone encounter Note Follow up call made to pt., no answer - LMOM. Will continue to monitor and follow. Lisa Watters MPA, RDN LD CDCES [facility] 10-06-2023 Miscellaneous Notes Follow up call made to pt., no answer - LMOM. Will continue to monitor and follow. Lisa Watters MPA, RDN LD CDCES documented in this encounter [facility] 09-23-2023 History of Present illness Narrative [...] prior to discharge. documented in this encounter [facility] 09-12-2023 History of Present illness Narrative RADIATION ONCOLOGY FOLLOW UP PATIENT: Madiha Perales DATE OF SERVICE: 09/12/2023 : 1945 AGE: 78 y.o. PRIMARY SITE AND HISTOPATHOLOGY: Left breast, grade 3 invasive ductal carcinoma, ER positive, ID positive, HER2 positive. STAGE: cT1b N0 M0, [...] the left breast. Biopsy was performed at [facility] on 01/28/2023. This revealed grade 3 invasive ductal carcinoma measuring at least 8 mm in dimension. ER positive at 100%, ID positive at 70% and HER2 positive at [...] the Arimidex. PLAN: Return in 6 months. Jarrell Diego MD [facility] Department of Radiation Oncology is an Accredited Facility of the [employer] (ACR). This document was [...] provider for clarification. documented in this encounter [facility] 09-12-2023 Nurse Note Here with using walker for follow up.Appetite good states she just doesn't drink enough water. Energy normal for her rests frequently. States skin is doing well and continues to moisturize with aloe and coconut oil. Recent bone density test done. Has echo coming up and continues on Trazimera every 3 weeks. [facility] 09-12-2023 Nurse Note Here with using walker for follow up.Appetite good states she just doesn't drink enough water. Energy normal for her rests frequently. States skin is doing well and continues to moisturize with aloe and coconut oil. Recent bone density test done. Has echo coming up and continues on Trazimera every 3 weeks. documented in this encounter [facility] 09-02-2023 History of Present illness Narrative [...] this encounter [facility] 09-02-2023 History of Present illness Narrative [...] this encounter [facility] 09-02-2023 History of Present illness Narrative Hematology/Oncology Office Visit Oncology History: 1) stage 1A left breast cancer, invasive ductal carcinoma grade 3. ER+ ID+ HER2+. cT1b N0 M0; pT1c N0 M0, diagnosed 01/28/23. - Patient is a 78 yo F who presented with an abnormal screening mammogram of the upper outer quadrant of the left breast on 11/27/22. Diagnostic imaging and ultrasound were performed on 01/21/2023: a 0.9 x 0.9 x 1 cm irregular mass in the left breast. 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 The patient underwent lumpectomy and sentinel node removal on 02/18/[address] Choi at [facility]: pathology revealed grade 3 invasive ductal carcinoma measuring 1.9 cm. There was focal DCIS and extensive lymphovascular invasion. Margins were negative for invasive and in situ component at greater than 2 mm. 6 axillary nodes were removed: 5 sentinel and 1 nonsentinel. All were negative. Pathologically staged T1CN0. - she was referred to [facility] for medical and radiation oncology. Her [...] back pain Breast calcifications on mammogram Dementia ([facility]) Depression Eczema H/O colonoscopy Hemorrhoid Hx of rosacea Lower extremity edema MARCY (obstructive sleep apnea) The patient wears CPAP Parkinson disease Stroke ([facility]) 2009 Torn meniscus Uterine cancer ([facility]/HCC) ([facility]) 2005 Past Surgical History: Procedure [...] left breast in female, estrogen receptor positive ([facility]) ([facility]) 03/18/2023 Edema of both lower [...] calcifications on mammogram 07/24/2013 Cerebrovascular accident (CVA) ([facility]) 06/23/2009 Social History Tobacco Use [...] Narrative: Patient Name: MADIHA PERALES : 1945 [facility]#: [id number] Exam Date/Time: 07/03/2023 11:37 Procedure: CT SIMULATION WO CONTRAST - RADIATION ONCOLOGY Ordering Provider: DIEGO DESIREE Reason For Exam: BREAST CARCINOMA CT simulation therapy /CT chest INDICATION: Breast carcinoma. Technique: Large [id number] 3 mm axial sections were obtained through [...] therapy 1) stage 1A left breast cancer ER+/ID+/HER2+ pT1c pN0 cM0 s/p left partial mastectomy [...] this encounter [facility] 08-12-2023 History of Present illness Narrative Patient arrived for delayed cycle 4 Q 3 week Trazimera. Patient still has cough on ATB. Reports feels well. Encouraged to call PCP to follow up with cough. PIV inserted, blood for CBC and CMP obtained. Infusion complete. PIV d/c'd angio cath intact. Patient ambulatory upon discharge. documented in this encounter [facility] 08-12-2023 History of Present illness Narrative Patient arrived for delayed cycle 4 Q 3 week Trazimera. Patient still has cough on ATB. Reports feels well. Encouraged to call PCP to follow up with cough. PIV inserted, blood for CBC and CMP obtained. Infusion complete. PIV d/c'd angio cath intact. Patient ambulatory upon discharge. documented in this encounter [facility] 08-05-2023 History of Present illness Narrative [...] seen by PCP. documented in this encounter [facility] 07-30-2023 History of Present illness Narrative [...] or grammatical errorspending documented in this encounter [facility] Work Phone: 07-29-2023 Telephone encounter Note ECHO for August pended to be signed [facility] 07-29-2023 Miscellaneous Notes ECHO for August pended to be signed documented in this encounter [facility] 07-15-2023 History of Present illness Narrative [...] assist to exit. documented in this encounter [facility] 07-15-2023 History of Present illness Narrative [...] assist to exit. documented in this encounter [facility] 07-15-2023 History of Present illness Narrative Hematology/Oncology Office Visit Oncology History: 1) stage 1A left breast cancer, invasive ductal carcinoma grade 3. ER+ ID+ HER2+. cT1b N0 M0; pT1c N0 M0, diagnosed 01/28/23. - Patient is a 78 yo F who presented with an abnormal screening mammogram of the upper outer quadrant of the left breast on 11/27/22. Diagnostic imaging and ultrasound were performed on 01/21/2023: a 0.9 x 0.9 x 1 cm irregular mass in the left breast. 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 The patient underwent lumpectomy and sentinel node removal on 02/18/[address] Choi at [facility]: pathology revealed grade 3 invasive ductal carcinoma measuring 1.9 cm. There was focal DCIS and extensive lymphovascular invasion. Margins were negative for invasive and in situ component at greater than 2 mm. 6 axillary nodes were removed: 5 sentinel and 1 nonsentinel. All were negative. Pathologically staged T1CN0. - she was referred to [facility] for medical and radiation oncology. Her [...] 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[facility]) 10/29/2022 Mixed anxiety depressive disorder 10/29/2022 Obesity (BMI 30.0-34.9) 10/29/2022 Obstructive sleep apnea syndrome 10/29/2022 Falling 10/29/2022 Seborrheic keratosis 10/29/2022 Rosacea, acne 10/15/2022 Hemangioma of skin and subcutaneous tissue 04/24/2016 Breast calcifications on mammogram 07/24/2013 Cerebrovascular accident (CVA) ([facility]) 06/23/2009 Social History Tobacco Use [...] Narrative: [facility] Name[facility] 1945 [id number] Exam Date/Time: 07/03/2023 11:37 Procedure: CT SIMULATION WO CONTRAST - RADIATION ONCOLOGY Ordering Provider: DIEGO DESIREE Reason For Exam: BREAST CARCINOMA CT simulation therapy /CT chest INDICATION: Breast carcinoma. Technique: Large [id number]-[id number] 3 mm axial sections were obtained through [...] (HCC) 1) stage 1A left breast cancer ER+/ID+/HER2+ pT1c pN0 cM0 s/p left partial mastectomy [...] this encounter [facility] 07-14-2023 Telephone encounter Note Reached out to patient's daughter on this date by phone to check-in, assess needs, and offer support. Left voicemail requesting return call. [facility] 07-14-2023 Miscellaneous Notes Reached out to patient's daughter on this date by phone to check-in, assess needs, and offer support. Left voicemail requesting return call. documented in this encounter [facility] 07-03-2023 History of Present illness Narrative RADIATION ONCOLOGY FOLLOW UP PATIENT: Madiha Perales DATE OF SERVICE: 07/03/2023 : 1945 AGE: 78 y.o. PRIMARY SITE AND HISTOPATHOLOGY: Left breast, grade 3 invasive ductal carcinoma, ER positive, ID positive, HER2 positive. STAGE: cT1b N0 M0, [...] the left breast. Biopsy was performed at [facility] on 01/28/2023. This revealed grade 3 invasive ductal carcinoma measuring at least 8 mm in dimension. ER positive at 100%, ID positive at 70% and HER2 positive at [...] to side effects. She required admission to [facility] on 06/05/2023 through 06/08/2023 for symptom control. [...] hypofractionated technique for 4 weeks of therapy. Jarrell Diego MD [facility] Department of Radiation Oncology is an Accredited Facility of the [employer] (ACR). Total time: 35 [...] provider for clarification. documented in this encounter [facility] 07-03-2023 Nurse Note The patient is here at [facility] with her and daughter for follow up with Dr. Diego. She denies pain at the current time. She states her appetite and sleeping are WNL. He states she has low energy. She is on Trastuzumab every 3 weeks under the care of Dr. Escobedo. [facility] 07-03-2023 Nurse Note The patient signed consent and the RN signed as a witness. The RN gave and reviewed skin care teaching with the patient. The patient verbalized understanding. [facility] 07-03-2023 Nurse Note The patient is here at [facility] with her and daughter for follow [...] patient verbalized understanding. documented in this encounter [facility] 06-26-2023 History of Present illness Narrative Subjective Patient ID: Madiha Perales is a 78 y.o. female who presents for Hospital Follow-up (Was at [facility] was not responsive could not even stand, [...] or grammatical errors documented in this encounter [facility] Work Phone: 06-24-2023 History of Present illness Narrative Hematology/Oncology Office Visit Oncology History: 1) stage 1A left breast cancer, invasive ductal carcinoma grade 3. ER+ ID+ HER2+. cT1b N0 M0; pT1c N0 M0, diagnosed 01/28/23. - Patient is a 78 yo F who presented with an abnormal screening mammogram of the upper outer quadrant of the left breast on 11/27/22. Diagnostic imaging and ultrasound were performed on 01/21/2023: a 0.9 x 0.9 x 1 cm irregular mass in the left breast. 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 The patient underwent lumpectomy and sentinel node removal on 02/18/[address] Choi at [facility]: pathology revealed grade 3 invasive ductal carcinoma measuring 1.9 cm. There was focal DCIS and extensive lymphovascular invasion. Margins were negative for invasive and in situ component at greater than 2 mm. 6 axillary nodes were removed: 5 sentinel and 1 nonsentinel. All were negative. Pathologically staged T1CN0. - [facility]. Her [...] The patient wears CPAP Parkinson disease Stroke ([facility]) 2009 Torn meniscus Uterine cancer ([facility]) ([facility]) 2005 Past Surgical History: Procedure [...] left breast in female, estrogen receptor positive ([facility]) 03/18/2023 Edema of both lower extremities 02/05/2023 Parkinsonism 02/05/2023 Allergic reaction to bee sting 10/29/2022 Allergic rhinitis 10/29/2022 Eczema 10/29/2022 Eczema 10/29/2022 Elevated TSH 10/29/2022 External hemorrhoids 10/29/2022 Hair loss 10/29/2022 Low back pain 10/29/2022 Menopausal state 10/29/2022 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[facility]) 10/29/2022 Mixed anxiety depressive disorder 10/29/2022 Obesity (BMI 30.0-34.9) 10/29/2022 Obstructive sleep apnea syndrome 10/29/2022 Falling 10/29/2022 Seborrheic keratosis 10/29/2022 Rosacea, acne 10/15/2022 Hemangioma of skin and subcutaneous tissue 04/24/2016 Breast calcifications on mammogram 07/24/2013 Cerebrovascular accident (CVA) ([facility]) 06/23/2009 Social History Tobacco Use [...] (HCC) 1) stage 1A left breast cancer ER+/ID+/HER2+ pT1c pN0 cM0 s/p left partial mastectomy [...] this encounter [facility] 06-24-2023 History of Present illness Narrative [...] this encounter [facility] 06-24-2023 History of Present illness Narrative [...] this encounter [facility] 06-13-2023 History of Present illness Narrative Arrival Note Infusion Patient is here for hydration Labs were not ordered. 1013 Infusion completed and flushed with NS. No IV related complications. No s/sx rx, pt voices no c/o. Pt verbalizes understanding of s/sx adverse reaction or complication to report to MD office when at home. documented in this encounter [facility] 06-13-2023 Telephone encounter Note Patient accepted and confirmed home health start of care (SOC) for 06/12/23. Visit time established. [facility] Work Phone: 06-13-2023 Miscellaneous Notes Patient accepted and confirmed home health start of care (SOC) for 06/12/23. Visit time established. documented in this encounter [facility] 06-12-2023 Telephone encounter Note Received return message from patient's daughter/Sg. Sg states the visiting nurse came out today to see patient and she is scheduled to visit again on Friday. Sg states PT and OT have been cancelled for now. Sg states there are no needs at this time but she does have this worker's contact information and will reach out if needs/questions arise. [facility] 06-12-2023 Miscellaneous Notes Received return message from patient's daughter/Sg. Sg states the visiting nurse came out today to see patient and she is scheduled to visit again on Friday. Sg states PT and OT have been cancelled for now. Sg states there are no needs at this time but she does have this worker's contact information and will reach out if needs/questions arise. documented in this encounter [facility] 06-12-2023 Telephone encounter Note Reached out to rodney's daughter/Sg on this date via phone to check-in and offer support. No answer. Left voicemail requesting return call. [facility] 06-12-2023 Miscellaneous Notes Reached out to rodney's daughter/Sg on this date via phone to check-in and offer support. No answer. Left voicemail requesting return call. documented in this encounter [facility] 06-11-2023 Telephone encounter Note Follow up phone call made to pt's daughter - no answer. LMOM for pt. To return call. Continue to monitor. Lisa Watters MPA, ALFREDO PERERA CDCES [facility] 06-11-2023 Miscellaneous Notes Follow up phone call made to pt's daughter - no answer. LMOM for pt. To return call. Continue to monitor. Lisa Watters MPA, RDN LD CDCES documented in this encounter [facility] 06-09-2023 Miscellaneous Notes Standing lab orders to be drawn prior to oncology infusions are pended. documented in this encounter [facility] 06-09-2023 Telephone encounter Note Standing lab orders to be drawn prior to oncology infusions are pended. [facility] 06-04-2023 Telephone encounter Note Received a return call from patient's daughter/Sg. Spent time connecting with Sg as she shares about patient's health decline/cancer journey. Sg states recently patient has declined both physically and cognitively. Patient's is supportive but has health problems of his own also. Sg states the family needs to look at more support in the home for patient. This worker provided education on [facility] Agency on Aging services and supports. Also provided education on [facility]. Sg states the family has an agency they have gone through to get assistance for other family members that they may look into using again. This worker e-mailed Sg a list of private pay home health agencies to [employer]. This worker also made a referral to [facility] home delivered meal program on patient's behalf. Spoke with Suzanne at [facility] and she said she will contact Sg regarding their meal program. Sg has this worker's contact information in case additional needs arise. This worker will continue to follow-up. [facility] 06-04-2023 Miscellaneous Notes Received a return call from patient's daughter/Sg. Spent time connecting with Sg as she shares about patient's health decline/cancer journey. Sg states recently patient has declined both physically and cognitively. Patient's is supportive but has health problems of his own also. Sg states the family needs to look at more support in the home for patient. This worker provided education on [facility] on Aging services and supports. Also provided education on [facility]. Sg states the family has an agency they have gone through to get assistance for other family members that they may look into using again. This worker e-mailed Sg a list of private pay home health agencies to [employer]. This worker also made a referral to [facility] home delivered meal program on patient's behalf. Spoke with Suzanne at [facility] and she said she will contact Sg regarding their meal program. Sg has this worker's contact information in case additional needs arise. This worker will continue to follow-up. documented in this encounter [facility] 06-03-2023 Telephone encounter Note Received referral from Cathy Quiñones RN to connect with patient's family regarding options for increased help at home. Reached out to patient's daughter/Sg on this date via phone. No answer. Left voicemail requesting return call. [facility] 06-03-2023 Miscellaneous Notes Received referral from Cathy Quiñones RN to connect with patient's family regarding options for increased help at home. Reached out to patient's daughter/Sg on this date via phone. No answer. Left voicemail requesting return call. documented in this encounter [facility] 06-03-2023 Telephone encounter Note Venous duplex pended to be signed [facility] 06-03-2023 Miscellaneous Notes Venous duplex pended to be signed documented in this encounter [facility] 06-03-2023 History of Present illness Narrative Hematology/Oncology Office Visit Oncology History: 1) stage 1A left breast cancer, invasive ductal carcinoma grade 3. ER+ ID+ HER2+. cT1b N0 M0; pT1c N0 M0, diagnosed 01/28/23. - Patient is a 78 yo F who presented with an abnormal screening mammogram of the upper outer quadrant of the left breast on 11/27/22. Diagnostic imaging and ultrasound were performed on 01/21/2023: a 0.9 x 0.9 x 1 cm irregular mass in the left breast. 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 The patient underwent lumpectomy and sentinel node removal on 02/18/[address] Choi at [facility]: pathology revealed grade 3 invasive ductal carcinoma measuring 1.9 cm. There was focal DCIS and extensive lymphovascular invasion. Margins were negative for invasive and in situ component at greater than 2 mm. 6 axillary nodes were removed: 5 sentinel and 1 nonsentinel. All were negative. Pathologically staged T1CN0. - she was referred to [facility] for medical and radiation oncology. Her [...] The patient wears CPAP Parkinson disease Stroke ([facility]) 2009 Torn meniscus Uterine cancer (CMS/HCC) ([facility]) 2005 Past Surgical History: Procedure [...] calcifications on mammogram 07/24/2013 Cerebrovascular accident (CVA) ([facility]) 06/23/2009 Social History Tobacco Use [...] % infusion 500 mL/hr IntraVENous Continuous Stevie E Vanessa, DO 500 mL/hr at 06/03/23 1236 500 [...] therapy 1) stage 1A left breast cancer ER+/ID+/HER2+ pT1c pN0 cM0 s/p left partial mastectomy [...] this encounter [facility] 06-03-2023 History of Present illness Narrative [...] at this time. Staff message sent to Betting Clerk and social worker psychiatric for additional resources and possible in home [...] this encounter [facility] 05-27-2023 History of Present illness Narrative [...] this encounter [facility] 05-27-2023 Telephone encounter Note At check-in patient stated that insurance will remain the same in the upcoming year. [employer] 05.27.23 ES [facility] 05-27-2023 Miscellaneous Notes At check-in patient stated that insurance will remain the same in the upcoming year. [employer] 05.27.23 ES documented in this encounter [facility] 05-23-2023 History of Present illness Narrative [...] at this time documented in this encounter [facility] 05-20-2023 History of Present illness Narrative Hematology/Oncology Office Visit Oncology History: 1) stage 1A left breast cancer, invasive ductal carcinoma grade 3. ER+ ID+ HER2+. cT1b N0 M0; pT1c N0 M0, diagnosed 01/28/23. - Patient is a 78 yo F who presented with an abnormal screening mammogram of the upper outer quadrant of the left breast on 11/27/22. Diagnostic imaging and ultrasound were performed on 01/21/2023: a 0.9 x 0.9 x 1 cm irregular mass in the left breast. 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 The patient underwent lumpectomy and sentinel node removal on 02/18/[address] Choi at [facility]: pathology revealed grade 3 invasive ductal carcinoma measuring 1.9 cm. There was focal DCIS and extensive lymphovascular invasion. Margins were negative for invasive and in situ component at greater than 2 mm. 6 axillary nodes were removed: 5 sentinel and 1 nonsentinel. All were negative. Pathologically staged T1CN0. - [facility] medical [facility]. Her [...] The patient wears CPAP Parkinson disease Stroke ([facility]) 2009 Torn meniscus Uterine cancer (CMS/HCC) ([facility]) 2005 Past Surgical History: Procedure [...] calcifications on mammogram 07/24/2013 Cerebrovascular accident (CVA) ([facility]) 06/23/2009 Social History Tobacco Use [...] (HCC) 1) stage 1A left breast cancer ER+/ID+/HER2+ pT1c pN0 cM0 s/p left partial mastectomy [...] DO Hematology/Medical Oncology documented in this encounter [facility] 05-20-2023 History of Present illness Narrative Patient [...] ambulatory upon discharge. documented in this encounter [facility] 05-13-2023 History of Present illness Narrative [...] [facility] [facility]23 Telephone encounter Note ECHO for Jun 2023 pended to be signed [facility] 05-12-2023 Miscellaneous Notes ECHO for Jun 2023 pended to be signed documented in this encounter [facility] 05-06-2023 History of Present illness Narrative Hematology/Oncology Office Visit Oncology History: 1) stage 1A left breast cancer, invasive ductal carcinoma grade 3. ER+ ID+ HER2+. cT1b N0 M0; pT1c N0 M0, diagnosed 01/28/23. - Patient is a 78 yo F who presented with an abnormal screening mammogram of the upper outer quadrant of the left breast on 11/27/22. Diagnostic imaging and ultrasound were performed on 01/21/2023: a 0.9 x 0.9 x 1 cm irregular mass in the left breast. 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 The patient underwent lumpectomy and sentinel node removal on 02/18/[address] Choi at [facility]: pathology revealed grade 3 invasive ductal carcinoma measuring 1.9 cm. There was focal DCIS and extensive lymphovascular invasion. Margins were negative for invasive and in situ component at greater than 2 mm. 6 axillary nodes were removed: 5 sentinel and 1 nonsentinel. All were negative. Pathologically staged T1CN0. - she was referred to [facility] for medical and radiation oncology. Her [...] calcifications on mammogram 07/24/2013 Cerebrovascular accident (CVA) ([facility]) 06/23/2009 Social History Tobacco Use [...] 50 mL IVPB IntraVENous Once Stevie E Vanessa, DO ondansetron (Zofran) 8 mg, dexAMETHasone (Decadron) 12 mg in sodium chloride 0.9 % 50 mL IVPB IntraVENous Once Stevie E Vanessa, DO PACLitaxel (Taxol) 126 mg in sodium chloride 0.9 % 250 mL chemo IVPB 60 mg/m2 (Treatment Plan Recorded) IntraVENous Once Stevie E Vanessa, DO sodium chloride 0.9 % infusion 5-250 mL/hr IntraVENous Once PRN Stevie E Vanessa, DO trastuzumab-qyyp (Trazimera) 184.6 mg in sodium chloride 0.9 % 250 mL chemo IVPB 2 mg/kg (Treatment Plan Recorded) IntraVENous Once Stevie E Vanessa, DO Review of Systems Constitutional: Positive for [...] (HCC) 1) stage 1A left breast cancer ER+/ID+/HER2+ pT1c pN0 cM0 s/p left partial mastectomy [...] this encounter [facility] 05-06-2023 History of Present illness Narrative [...] this encounter [facility] 04-29-2023 History of Present illness Narrative [...] provided to patient. documented in this encounter [facility] 04-22-2023 History of Present illness Narrative Hematology/Oncology Office Visit Oncology History: 1) stage 1A left breast cancer, invasive ductal carcinoma grade 3. ER+ ID+ HER2+. cT1b N0 M0; pT1c N0 M0, diagnosed 01/28/23. - Patient is a 78 yo F who presented with an abnormal screening mammogram of the upper outer quadrant of the left breast on 11/27/22. Diagnostic imaging and ultrasound were performed on 01/21/2023: a 0.9 x 0.9 x 1 cm irregular mass in the left breast. 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 The patient underwent lumpectomy and sentinel node removal on 02/18/[address] Choi at [facility]: pathology revealed grade 3 invasive ductal carcinoma measuring 1.9 cm. There was focal DCIS and extensive lymphovascular invasion. Margins were negative for invasive and in situ component at greater than 2 mm. 6 axillary nodes were removed: 5 sentinel and 1 nonsentinel. All were negative. Pathologically staged T1CN0. - she was referred to [facility] for medical and radiation oncology. Her [...] calcifications on mammogram 07/24/2013 Cerebrovascular accident (CVA) ([facility]) 06/23/2009 Social History Tobacco Use [...] (HCC) 1) stage 1A left breast cancer ER+/ID+/HER2+ pT1c pN0 cM0 s/p left partial mastectomy [...] this encounter [facility] 04-22-2023 History of Present illness Narrative [...] this encounter [facility] 04-08-2023 History of Present illness Narrative Hematology/Oncology Office Visit Oncology History: 1) stage 1A left breast cancer, invasive ductal carcinoma grade 3. ER+ ID+ HER2+. cT1b N0 M0; pT1c N0 M0, diagnosed 01/28/23. - Patient is a 78 yo F who presented with an abnormal screening mammogram of the upper outer quadrant of the left breast on 11/27/22. Diagnostic imaging and ultrasound were performed on 01/21/2023: a 0.9 x 0.9 x 1 cm irregular mass in the left breast. 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 The patient underwent lumpectomy and sentinel node removal on 02/18/[address] Choi at [facility]: pathology revealed grade 3 invasive ductal [...] The patient wears CPAP Parkinson disease Stroke ([facility]) 2009 Torn meniscus Uterine cancer ([facility]/HCC) (HCC) 2005 Past Surgical History: Procedure [...] 50 mL IVPB IntraVENous Once Stevie E Vanessa, DO ondansetron (Zofran) 8 mg, dexAMETHasone (Decadron) 12 mg in sodium chloride 0.9 % 50 mL IVPB IntraVENous Once Stevie E Vanessa, DO PACLitaxel (Taxol) 162 mg in sodium chloride 0.9 % 250 mL chemo IVPB 80 mg/m2 (Treatment Plan Recorded) IntraVENous Once Stevie E Vanessa, DO sodium chloride 0.9 % infusion 5-250 mL/hr IntraVENous Once PRN Stevie E Vanessa, DO trastuzumab-qyyp (Trazimera) 184.6 mg in sodium chloride 0.9 % 250 mL chemo IVPB 2 mg/kg (Treatment Plan Recorded) IntraVENous Once Stevie E Vanessa, DO Review of Systems Constitutional: Positive for [...] Case Report 03/14/2023 Final Value:Surgical Pathology Case: [id number] Authorizing Provider: Jarrell Diego MD Collected: 03/14/2023 1008 Ordering Location: [facility] Laboratory Received: 03/14/2023 0812 Pathologist: Fozia [...] be displayed here. Pathologist Interpretation Location 03/14/2023 [facility], [address] [place] [address], CLIA: [id number]; Joint Commission: [id number]; CAP: [id number] Final Imaging Reviewed: as per HPI - I have reviewed all available pertinent laboratory, imaging and pathology results with the patient and/or family members today. Assessment/Plan: Diagnosis Plan 1. Malignant neoplasm of upper-outer quadrant of left breast in female, estrogen receptor positive (HCC) 1) stage 1A left breast cancer ER+/ID+/HER2+ pT1c pN0 cM0 s/p left partial mastectomy [...] this encounter [facility] 04-08-2023 History of Present illness Narrative [...] this encounter [facility] 04-08-2023 History of Present illness Narrative [...] this encounter [facility] 04-01-2023 History of Present illness Narrative [...] this encounter [facility] 03-31-2023 History of Present illness Narrative Chemotherapy teaching completed with patient and , daughter, [id number], and son for Paclitaxel, and Trazimera. Written [...] access: PIV. Patient will get treatment in [place]. Reviewed role of multidisciplinary team: social work, film spooler, financial health counselor. Patient agreeable to proceed with treatment and signed consent form. Copy of consent form given to patient. Advised patient of appointment information and treatment calendar given. documented in this encounter [facility] 03-24-2023 Telephone encounter Note Standing orders for pre chemo labs are pended. Prescriptions for antiemetics and decadron prep prior to first treatment are pended. [facility] 03-24-2023 Miscellaneous Notes Standing orders for pre chemo labs are pended. Prescriptions for antiemetics and decadron prep prior to first treatment are pended. documented in this encounter [facility] 03-18-2023 History of Present illness Narrative New Patient Hematology/Oncology Office Visit Consultation/Referral Reason: breast cancer Referred by: Dr. Diego Oncology History: 1) stage 1A left breast cancer, invasive ductal carcinoma grade 3. ER+ ID+ HER2+. cT1b N0 M0; pT1c N0 M0, diagnosed 01/28/23. - Patient is a 78 yo F who presented with an abnormal screening mammogram of the upper outer quadrant of the left breast on 11/27/22. Diagnostic imaging and ultrasound were performed on 01/21/2023: a 0.9 x 0.9 x 1 cm irregular mass in the left breast. 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 The patient underwent lumpectomy and sentinel node removal on 02/18/[address] Choi at [facility]: pathology revealed grade 3 invasive ductal carcinoma measuring 1.9 cm. There was focal DCIS and extensive lymphovascular invasion. Margins were negative for invasive and in situ component at greater than 2 mm. 6 axillary nodes were removed: 5 sentinel and 1 nonsentinel. All were negative. Pathologically staged T1CN0. - she was referred to [facility] for medical and radiation oncology. Her [...] back pain Breast calcifications on mammogram Dementia ([facility]) Depression Eczema H/O colonoscopy Hemorrhoid Hx of rosacea Lower extremity edema MARCY (obstructive sleep apnea) The patient wears CPAP Parkinson disease ([facility]) Stroke ([facility]) 2009 Torn meniscus Uterine cancer ([facility]/HCC) ([facility]) 2005 Past Surgical History: Procedure [...] left breast in female, estrogen receptor positive ([facility]) 03/18/2023 Edema of both lower extremities 02/05/2023 Parkinsonism 02/05/2023 Allergic reaction to bee sting 10/29/2022 Allergic rhinitis 10/29/2022 Eczema 10/29/2022 Eczema 10/29/2022 Elevated TSH 10/29/2022 External hemorrhoids 10/29/2022 Hair loss 10/29/2022 Low back pain 10/29/2022 Menopausal state 10/29/2022 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[facility]) 10/29/2022 Mixed anxiety depressive disorder 10/29/2022 Obesity (BMI 30.0-34.9) 10/29/2022 Obstructive sleep apnea syndrome 10/29/2022 Falling 10/29/2022 Seborrheic keratosis 10/29/2022 Rosacea, acne 10/15/2022 Hemangioma of skin and subcutaneous tissue 04/24/2016 Breast calcifications on mammogram 07/24/2013 Cerebrovascular accident (CVA) ([facility]) 06/23/2009 Social History Tobacco Use [...] Case Report 03/14/2023 Final Value:Surgical Pathology Case: [id number] Authorizing Provider: Jarrell Diego MD Collected: 03/14/2023 1008 Ordering Location: [facility] Laboratory Received: 03/14/2023 0812 Pathologist: Fozia [...] be displayed here. Pathologist Interpretation Location 03/14/2023 [facility], [address] [facility], [place] [address], CLIA: [id number]; Joint Commission: [id number]; CAP: [id number] Final Imaging Reviewed: as per HPI - [...] PRN 1) stage 1A left breast cancer ER+/ID+/HER2+ pT1c pN0 cM0 s/p left partial mastectomy [...] this encounter [facility] 03-06-2023 Consult note Formatting of th is note is different from the original. RADIATION ONCOLOGY INITIAL CONSULTATION PATIENT: Madiha Perales DATE OF SERVICE: 03/06/23 : 1945 AGE: 78 y.o. PRIMARY SITE AND HISTOPATHOLOGY: Left breast, grade 3 invasive ductal carcinoma, ER positive, ID positive, HER2 positive. STAGE: cT1b N0 M0, [...] the left breast. Biopsy was performed at [facility] on 01/28/2023. This revealed grade 3 invasive ductal carcinoma measuring at least 8 mm in dimension. ER positive at 100%, ID positive at 70% and HER2 positive at [...] the first planning session is at the [facility] and the rest of the appointments would be at the [facility]. We thank you for the consultation. Jarrell Diego MD [facility] Department of Radiation Oncology is an Accredited Facility of the [employer] ([employer]). Total time: 65 [...] directly addressed to the provider for clarification. [facility] 03-06-2023 Consult note Formatting of th is note is different from the original. RADIATION ONCOLOGY INITIAL CONSULTATION PATIENT: aMdiha Perales DATE OF SERVICE: 03/06/23 : 1945 AGE: 78 y.o. PRIMARY SITE AND HISTOPATHOLOGY: Left breast, grade 3 invasive ductal carcinoma, ER positive, ID positive, HER2 positive. STAGE: cT1b N0 M0, [...] the left breast. Biopsy was performed at [facility] on 01/28/2023. This revealed grade 3 invasive ductal carcinoma measuring at least 8 mm in dimension. ER positive at 100%, ID positive at 70% and HER2 positive at [...] apnea) The patient wears CPAP Parkinson disease ([facility]) Stroke ([facility]) 2009 Torn meniscus Uterine cancer (CMS/HCC) ([facility]) 2005 PAST SURGICAL HISTORY: Past [...] the first planning session is at the [facility] and the rest of the appointments would be at the [facility]. We thank you for the consultation. Jarrell Diego MD [facility] Department of Radiation Oncology is an Accredited Facility of the [employer] ([employer]CR). Total time: 65 [...] provider for clarification. documented in this encounter [facility] 03-06-2023 Nurse Note The patient is here with her at [facility] for a new consult with Dr. [...] patient resource guide. The patient verbalized understanding. [facility] 03-06-2023 Nurse Note The patient is here with her at [facility] for a new consult with Dr. [...] patient verbalized understanding. documented in this encounter [facility] 02-27-2023 History of Present illness Narrative [...] family would like to be seen at [facility]. Referral has been sent. She can return to see me in 6 months to assess her progress. Office Visit on 02/27/23 CONSULT TO ONCOLOGY RAD/ONC CONSULT Torrie Choi MD documented in this encounter [facility] 02-26-2023 Miscellaneous Notes Patient daughter sg called with questions Radiation doctors she was wondering if Demi Cortez, Dana bob or Kisha Mane were a good fit for her mom they are all Main campus doctors but was wondering what place they actually do the radiation treatment. She also mentioned that you suggested [facility]. Then she had questions on what stage her mothers cancer is? Also she doesn't she pathology for the tumor??? Sg [phone] documented in this encounter [facility] 02-12-2023 History of Present illness Narrative [...] has not fallen. While being evaluated at [facility] preadmission testing for upcoming breast cancer [...] or grammatical errors documented in this encounter [facility] Work Phone: 02-10-2023 History of Present illness Narrative I have reviewed the EMANUEL localization request for Dr. Choi. Left breast: 3:00 posterior depth, invasive ductal carcinoma, HydroMARK butterfly clip, EMANUEL localization. Images marked are dated 01/28/2023. This is a nonbillable encounter. documented in this encounter [facility] 02-06-2023 Miscellaneous Notes Spoke with patient [...] Follow up with PCP Call taken by junior java developer today: Patient daughter called about some concerns PACC appt PA notice patients feet were swollen. Patient doesn't wear cpmpression socks. Should they attempt to get some before the surgery and can you place an order for these? Call Alicia or stevie [phone] or Christiano her [phone] Please see previous note from 02/05/23 Breast [...] is scheduled on 02/18. Please call at [phone] Thank You documented in this encounter [facility] 02-06-2023 Miscellaneous Notes Please see encounter from 02/05/23. This encounter closed. Patient daughter called about some concerns PACC appt PA notice patients feet were swollen. Patient doesn't wear cpmpression socks. Should they attempt to get some before the surgery and can you place an order for these? Call Alicia or stevie [phone] or Christiano her [phone] documented in this encounter [facility] 02-04-2023 History and physical note HISTORY [...] manage symptoms. Procedure scheduled on 02/18/2023 at [facility]. REVIEW OF SYSTEMS: General: No weight loss, [...] or any previous visit (from the past 04218 hour(s)). Assessment Patient has the following medical [...] amyloid angiopathy, the rebleeding risk in the retirement is probably in the range of ~5% [...] TO PENIC[facility]IN [facility]ERGY Scheduling Instructions: Please call [phone] to set up an urgent consult. Multivitamin capsule Sig: Take 1 capsule by mouth once daily. Instructions Given to Patient: Instructions located in the after visit summary. Patient given verbal and written preop instructions and voices comprehension and compliance. SIGNATURE: Lorrie Dooley PA-C PATIENT NAME: Madiha Perales DATE: February 05, 2023 TIME: 11:21 AM PAGER/CONTACT #: documented in this encounter [facility] 02-04-2023 Instructions Lorrie Dooley PA-C - 02/04/2023 11:05 AM EDT Images from the original note were not included. PATIENT PREOPERATIVE INSTRUCTIONS Torrie Choi MD has scheduled you for your procedure at this surgery center: [facility]: [phone] -- [address] [facility] [address]. Please read below carefully for your personalized [...] Procedures: - YOU MUST HAVE A RESPONSIBLE LIQUEFACTION PLANT OPERATOR TAKE YOU HOME. A WAITSTAFF OR CATH LAB RADIOLOGICAL TECHNOLOGIST CANNOT BE MADE A RESPONSIBLE LIQUEFACTION PLANT OPERATOR. - We recommend that a responsible person [...] Advance Directive, please fax a copy to [phone] or email to for it to be [...] and scanned into your chart that day. Lorrie Dooley PA-C documented in this encounter [facility] 02-03-2023 History of Present illness Narrative General Surgery New Patient H&P PATIENT NAME: Madiha Perales Assessment ASSESSMENT/PLAN: (C50.412, Z17.0) Malignant neoplasm of upper-outer quadrant of left breast in female, estrogen receptor positive (HCC) (primary encounter diagnosis) Citlaly presents with a new diagnosis of left breast cancer, ER/ID positive and Her-2 positive. We discussed proceeding with surgical management. Options given including mastectomy versus breast conservation. She would like to proceed with lumpectomy with sentinel lymph node biopsy. Risks including bleeding, infection, lymphedema, the need for more surgery, and recurrent tumor were explained to the patient and her family and she would like to proceed. She will be scheduled for EMANUEL Cupola Charger placement. Surgery is scheduled for February 18. [...] expected External controls: appropriately stained Progesterone Receptor (ID) Positive 70 % Stain intensity: strong Internal controls: present and stained as expected External controls: appropriately stained HER2 (ERBB2) IMMUNOHISTOCHEMISTRY ASSAY Interpretation: POSITIVE for HER2 (ERBB2) Expression Score: 3+ Torrie Choi MD documented in this encounter [facility] 02-03-2023 Procedure note Anticipated Surgical Procedure/ CPT Code: left LUMPECTOMY WITH SENTINEL LYMPH NODE BIOPSY - 76503-602, 44003-394, 53659-942, with EMANUEL Anticipated Anesthetic: General Patient weight: There were no vitals taken for this visit. BMI: There is no height or weight on file to calculate BMI. Planned antibiotic: SCDs needed: Yes Hemodialysis Lab Technician Needed: Yes Pre Op Clearance: PAT Anticoagulation: No Diabetic: No Location: [place] OR Dx - left breast cancer documented in this encounter [facility] 01-29-2023 Miscellaneous Notes Called patient to notify the breast pathology results did show malignancy per Dr. Rausch. [place] office staff will assist patient with a surgical consult appt with Dr. Choi/ Dr. Moore. Patient verbalized understanding. documented in this encounter [facility] 01-28-2023 Miscellaneous Notes Patient provided At Home Instructions pamphlet and Dr. Rausch spoke with her and her about after care and results. documented in this encounter [facility] 01-23-2023 History of Present illness Narrative [...] in 6 months documented in this encounter [facility] Work Phone: 01-21-2023 History of Present [...] 2023 8:23 AM documented in this encounter [facility] 11-27-2022 History of Present illness Narrative [...] 2022 3:56 PM documented in this encounter [facility] 10-30-2022 History of Present illness Narrative [...] the skin lesion. documented in this encounter [facility] Work Phone: 10-24-2022 History of Present [...] 40 minute appointment documented in this encounter [facility] Work Phone: 09-21-2021 Miscellaneous Notes September 21, 2021 PID: [id number] Madiha Perales [address] [place] [address] Dear Ms. Perales, We are pleased to [...] report will be kept on file at [facility] as part of your permanent medical record and are available for your continuing care. Thank you for allowing us to help in meeting your health care needs. Sincerely, Dr. Herring Interpreting Radiologist [facility] (Normal over 40) documented in this encounter [facility] 09-21-2021 History of Present illness Narrative [...] 2021 8:29 AM documented in this encounter [facility] 07-13-2020 History of Present illness Narrative [...] Seborrheic keratosis- Primary documented in this encounter [facility] Work Phone: Evaluation note* Diagnosis Seborrheic keratosis- Primary Pigmented skin lesion suspicious for malignant neoplasm documented in this encounter [facility] Work Phone: Evaluation note* Diagnosis Abnormal finding on radiological examination of breast- Primary Other (abnormal) findings on radiological examination of breast [facility] Diagnosis Abnormal finding on radiological examination of breast- Primary Other (abnormal) findings on radiological examination of breast [facility] Diagnosis Abnormal finding on radiological examination of breast Other (abnormal) findings on radiological examination of breast [facility] Diagnosis Parkinsonism, unspecified Parkinsonism type (CMS/HCC)- Primary Depression with anxiety Dysthymic disorder Repeated falls 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CMS/HCC) documented in this encounter [facility] Work Phone: Evaluation note* Diagnosis Abnormal finding on radiological examination of breast Other (abnormal) findings on radiological examination of breast [facility] Diagnosis Malignant neoplasm of upper-outer quadrant of left breast in female, estrogen receptor positive (HCC)- Primary Malignant neoplasm of upper-outer quadrant of left breast in female, estrogen receptor positive (HCC) [facility] Malignant neoplasm of upper-outer quadrant of left breast in female, estrogen receptor positive (HCC)- Primary Malignant neoplasm of upper-outer quadrant of left breast in female, estrogen receptor positive (HCC) documented in this encounter [facility] note* Diagnosis Pre-op evaluation- Primary Preoperative [...] receptor positive (HCC) documented in this encounter [facility] note* Diagnosis Malignant neoplasm of upper-outer quadrant of left breast in female, estrogen receptor positive (HCC) Malignant neoplasm of upper-outer quadrant of left breast in female, estrogen receptor positive (HCC) documented in this encounter [facility] note* Diagnosis Depression with anxiety- Primary Dysthymic disorder Repeated falls Parkinsonism, unspecified Parkinsonism type (CMS/HCC) Bilateral lower extremity edema documented in this encounter [facility] Work Phone: Evaluation note* Diagnosis Malignant neoplasm of upper-outer quadrant of left breast in female, estrogen receptor positive (HCC)- Primary documented in this encounter [facility] note* Diagnosis Malignant neoplasm of upper-outer quadrant of left breast in female, estrogen receptor positive (HCC)- Primary documented in this encounter [facility] note* Diagnosis Malignant neoplasm of upper-outer quadrant of left breast in female, estrogen receptor positive (HCC)- Primary Other general symptoms and signs documented [facility]* Diagnosis Malignant neoplasm of upper-outer quadrant of left breast in female, estrogen receptor positive (HCC) documented in this encounter [facility] note* Diagnosis Malignant neoplasm of upper-outer quadrant of left breast in female, estrogen receptor positive (HCC)- Primary documented in this encounter [facility]* Diagnosis Malignant neoplasm of upper-outer quadrant of left breast in female, estrogen receptor positive (HCC) Other general symptoms and signs documented in this encounter [facility] note* Diagnosis Malignant neoplasm of upper-outer quadrant of left breast in female, estrogen receptor positive (HCC)- Primary documented in this encounter [facility]* Diagnosis Malignant neoplasm of upper-outer quadrant of left breast in female, estrogen receptor positive (HCC) documented in this encounter [facility]* Diagnosis Malignant neoplasm of upper-outer quadrant of left breast in female, estrogen receptor positive (HCC)- Primary [facility] Diagnosis Malignant neoplasm of upper-outer quadrant of left breast in female, estrogen receptor positive (HCC)- Primary [facility] Diagnosis Malignant neoplasm of upper-outer quadrant of left breast in female, estrogen receptor positive (HCC) documented in this encounter [facility]* Diagnosis Malignant neoplasm of upper-outer quadrant of left breast in female, estrogen receptor positive (HCC)- Primary [facility] Diagnosis Malignant neoplasm of upper-outer quadrant of left breast in female, estrogen receptor positive (HCC)- Primary documented in this encounter [facility] note* Diagnosis Malignant neoplasm of upper-outer quadrant of left breast in female, estrogen receptor positive (HCC) [facility] Diagnosis Malignant neoplasm of upper-outer quadrant of left breast in female, estrogen receptor positive (HCC) documented in this encounter [facility] note* Diagnosis Malignant neoplasm of upper-outer quadrant of left breast in female, estrogen receptor positive (HCC)- Primary documented in this encounter [facility]* Diagnosis Malignant neoplasm of upper-outer quadrant of left breast in female, estrogen receptor positive (HCC) [facility] Diagnosis Malignant neoplasm of upper-outer quadrant of left breast in female, estrogen receptor positive (HCC)- Primary documented in this encounter [facility]* Diagnosis Encounter for monitoring cardiotoxic drug therapy documented in this encounter [facility]* Diagnosis Malignant neoplasm of upper-outer quadrant of left breast in female, estrogen receptor positive (HCC)- Primary [facility] Diagnosis Malignant neoplasm of upper-outer quadrant of left breast in female, estrogen receptor positive (HCC) [facility] Diagnosis Malignant neoplasm of upper-outer quadrant of left breast in female, estrogen receptor positive (HCC) Localized edema Edema [facility] Diagnosis Malignant neoplasm of upper-outer quadrant of left breast in female, estrogen receptor positive (HCC)- Primary Encounter for monitoring cardiotoxic drug therapy [facility] Malignant neoplasm of upper-outer quadrant of left breast in female, estrogen receptor positive (HCC) Localized edema Edema [facility] Diagnosis Malignant neoplasm of upper-outer quadrant of left breast in female, estrogen receptor positive (HCC) Falling Unspecified fall Hypotension, unspecified hypotension type [facility]* Diagnosis Malignant neoplasm of upper-outer quadrant of left breast in female, estrogen receptor positive (HCC) [facility]* Diagnosis Malignant neoplasm of upper-outer quadrant of left breast in female, estrogen receptor positive (HCC)- Primary [facility]* Diagnosis Malignant neoplasm of upper-outer quadrant of left breast in female, estrogen receptor positive (HCC) [facility]* Diagnosis Malignant neoplasm of upper-outer quadrant of left breast in female, estrogen receptor positive (HCC)- Primary [facility]* Diagnosis Malignant neoplasm of upper-outer quadrant of left breast in female, estrogen receptor positive (HCC) [facility]* Diagnosis Encounter for monitoring cardiotoxic drug therapy documented in this encounter [facility]* Diagnosis Parkinsonism, unspecified Parkinsonism type- Primary Toxic effect of chemotherapy Dehydration Malignant neoplasm of right female breast, unspecified estrogen receptor status, unspecified site of breast (CMS/HCC) documented in this encounter [facility] Work Phone: Evaluation note* Diagnosis Malignant neoplasm of upper-outer quadrant of left female breast, unspecified estrogen receptor status (HCC) [facility] Diagnosis Malignant neoplasm of upper-outer quadrant of left breast in female, estrogen receptor positive (HCC) (HCC)- Primary [facility]* Diagnosis Malignant neoplasm of upper-outer quadrant of left breast in female, estrogen receptor positive (HCC) (HCC) [facility]* Diagnosis Malignant neoplasm of upper-outer quadrant of left breast in female, estrogen receptor positive (HCC) (HCC)- Primary [facility]* Diagnosis Malignant neoplasm of upper-outer quadrant of left breast in female, estrogen receptor positive (HCC) (HCC)- Primary documented in this encounter [facility]* Diagnosis Admission for therapeutic drug monitoring Encounter for therapeutic drug monitoring Encounter for monitoring cardiotoxic drug therapy documented in this encounter [facility]* Diagnosis Parkinsonism, unspecified Parkinsonism type- Primary Malignant neoplasm of right female breast, unspecified estrogen receptor status, unspecified site of breast (CMS/HCC) 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CMS/HCC) Medicare annual wellness visit, subsequent Bilateral lower extremity edema documented in this encounter [facility] Work Phone: Evaluation note* Diagnosis Thyroid nodule Nontoxic uninodular goiter documented in this encounter [facility] Work Phone: Evaluation note* Diagnosis Nontoxic single thyroid nodule Nontoxic uninodular goiter documented in this encounter [facility] Work Phone: evaluation note* Diagnosis Malignant neoplasm of upper-outer quadrant of left breast in female, estrogen receptor positive (HCC) (HCC) documented in this encounter [facility] [employer] note* Diagnosis Malignant neoplasm of upper-outer quadrant of left breast in female, estrogen receptor positive (HCC) (HCC) documented in this encounter [facility] note* Diagnosis Malignant neoplasm of upper-outer quadrant of left breast in female, estrogen receptor positive (HCC) (HCC)- Primary documented in this encounter [facility] [employer] note* Diagnosis Malignant neoplasm of upper-outer quadrant of left breast in female, estrogen receptor positive (HCC) (HCC)- Primary Encounter for monitoring cardiotoxic drug therapy Asymptomatic menopausal state Encounter for monitoring anastrozole therapy documented in this encounter [facility] [employer] note* Diagnosis Malignant neoplasm of upper-outer quadrant of left breast in female, estrogen receptor positive (HCC) (HCC) documented in this encounter [facility] [employer] note* Diagnosis Malignant neoplasm of upper-outer quadrant of left breast in female, estrogen receptor positive (HCC) (HCC)- Primary documented in this encounter [facility] [employer] note* Diagnosis Malignant neoplasm of upper-outer quadrant of left breast in female, estrogen receptor positive (HCC) (HCC) Asymptomatic menopausal state Encounter for monitoring anastrozole therapy documented in this encounter [facility] note* Diagnosis Malignant neoplasm of upper-outer quadrant of left breast in female, estrogen receptor positive (HCC)- Primary documented in this encounter [facility] note* Diagnosis Admission for therapeutic drug monitoring Encounter for therapeutic drug monitoring Encounter for monitoring cardiotoxic drug therapy documented in this encounter [facility] note* Diagnosis Malignant neoplasm of upper-outer quadrant of left breast in female, estrogen receptor positive (HCC) documented in this encounter [facility] note* Diagnosis Malignant neoplasm of upper-outer quadrant of left breast in female, estrogen receptor positive (HCC) documented in this encounter [facility] note* Diagnosis Malignant neoplasm of upper-outer quadrant of left breast in female, estrogen receptor positive (HCC)- Primary documented in this encounter [facility] note* Diagnosis Malignant neoplasm of upper-outer quadrant of left breast in female, estrogen receptor positive (HCC)- Primary documented in this encounter [facility] note* Diagnosis Malignant neoplasm of upper-outer quadrant of left breast in female, estrogen receptor positive (HCC)- Primary documented in this encounter [facility] note* Diagnosis 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 Parkinsonism, unspecified Parkinsonism type (Multi) Depression with anxiety Dysthymic disorder Pneumonia due to COVID-19 virus Malignant neoplasm of right female breast, unspecified estrogen receptor status, unspecified site of breast (Multi) documented in this encounter [facility] Work Phone: Evaluation note* Diagnosis Malignant neoplasm of upper-outer quadrant of left breast in female, estrogen receptor positive (HCC) documented in this encounter [facility] note* Diagnosis Malignant neoplasm of upper-outer quadrant of left breast in female, estrogen receptor positive (HCC)- Primary documented in this encounter [facility] note* Diagnosis Malignant neoplasm of upper-outer quadrant of left breast in female, estrogen receptor positive (HCC) documented in this encounter [facility] note* Diagnosis Visit for screening mammogram- Primary Other screening mammogram Malignant neoplasm of upper-outer quadrant of left breast in female, estrogen receptor positive (HCC) documented in this encounter [facility] note* Diagnosis Pre-op evaluation- Primary Preoperative [...] positive (HCC)- Primary documented in this encounter [facility] note* Diagnosis Malignant neoplasm of upper-outer quadrant of left breast in female, estrogen receptor positive (HCC)- Primary documented in this encounter [facility] note* Diagnosis Pre-op evaluation- Primary Preoperative [...] receptor positive (HCC) documented in this encounter [facility] note* Diagnosis Malignant neoplasm of upper-outer quadrant of left breast in female, estrogen receptor positive (HCC) documented in this encounter [facility] note* Diagnosis Malignant neoplasm of upper-outer quadrant of left breast in female, estrogen receptor positive (HCC) documented in this encounter [facility] note* Diagnosis Parkinsonism, unspecified Parkinsonism type (Multi)- Primary Malignant neoplasm of right female breast, unspecified estrogen receptor status, unspecified site of breast (Multi) Depression with anxiety Dysthymic disorder Elevated TSH Other abnormal blood chemistry Obesity (BMI 30.0-34.9) Other specified depressive episodes documented in this encounter [facility] Work Phone: Evaluation note* Diagnosis Malignant neoplasm of upper-outer quadrant of left breast in female, estrogen receptor positive (HCC) documented in this encounter [facility] note* Diagnosis Malignant neoplasm of upper-outer quadrant of left breast in female, estrogen receptor positive (HCC) documented in this encounter [facility] note* Diagnosis Malignant neoplasm of upper-outer quadrant of left breast in female, estrogen receptor positive (HCC)- Primary documented in this encounter [facility] note* Diagnosis Medicare annual wellness visit, subsequent- Primary Depression with anxiety Dysthymic disorder Elevated TSH Other abnormal blood chemistry Parkinson's disease without dyskinesia or fluctuating manifestations Vitamin D deficiency Do not resuscitate documented in this encounter [facility] Work Phone: Evaluation note* Diagnosis Pre-op [...] Cervicogenic headache Headache [facility] evaluation- Primary Preoperative [...] confusion Unspecified psychosis [facility] Pre-op evaluation- Primary Preoperative [...] without residual deficits [facility] Mrs. Perales [...] were last checked in June, all reassuring. [facility] Work Phone: History of Present [...] sent through Care Everywhere. * DASH Diet (Nigerian) * Preventing falls in adults (Nigerian) documented in this [facility] Work Phone: Reason for referral (narrative)* Diagnostic Procedure Only (Routine) - Closed Specialty Diagnoses / Procedures Referred By Ashley sigala Referred To Contact [facility] Diagnoses Abnormal finding on radiological examination of breast Procedures US BREAST LTD LEFT US BREAST UNI REAL TIME WITH IMAGE LIMITED Jannette Mendez MD [address] [place] [address] [facility] [address] [place] [address] Referral ID Status Reason Start Date Expiration Date V isits Requested Visits Authorized [id number] Closed Auto-Generate d Referral 01/21/2023 06/22/2023 1 1 [facility] for referral (narrative)* Diagnostic Procedure Only (Routine) - Authorized Specialty Diagnoses / Procedures Referred By Ashley sigala Referred To Contact [facility] Diagnoses Abnormal finding on radiological examination of breast Procedures US BIOPSY BREAST LEFT BX BREAST W/DEVICE 1ST LESION ULTRASOUND GUID Jannette Mendez MD [address] [place] [address] [facility] [address] [place] [address] Referral ID Status Reason Start Date Expiration Date Visits Requested Visits Authorized [id number] Authorized Auto-Generat ed Referral 01/21/2023 02/20/2024 1 1 [facility] for referral (narrative)* Diagnostic Procedure Only (Routine) - Closed Specialty Diagnoses / Procedures [facility] Referred To Contact [facility] Diagnoses Abnormal finding on radiological examination of breast Procedures US BREAST LTD LEFT US BREAST UNI REAL TIME WITH IMAGE LIMITED Jannette Mendez MD [address] [place] [id number] [facility] [address] [place] [phone] Referral ID Status Reason Start Date Expiration Date V isits Requested Visits Authorized [id number] Closed Auto-Generate d Referral 01/21/2023 06/22/2023 1 1 [facility] for referral (narrative)* Diagnostic Procedure Only (Routine) - Closed Specialty Diagnoses / Procedures [facility] Referred To Contact [facility] Diagnoses Abnormal finding on radiological examination of breast Procedures US BIOPSY BREAST LEFT BX BREAST W/DEVICE 1ST LESION ULTRASOUND GUID Jannette Mendez MD [address] [place] [address] [facility] [address] [place] [phone] Referral ID Status Reason Start Date Expiration Date V isits Requested Visits Authorized [id number] Closed Auto-Generate d Referral 01/21/2023 02/20/2024 1 1 T [facility] for referral (narrative)* Diagnostic Procedure Only (Routine) - Pending Review Specialty Diagnoses / Procedures [facility] Referred To Contact [facility] Diagnoses Malignant neoplasm of upper-outer quadrant of left breast in female, estrogen receptor positive (HCC) Procedures LEE NDL LOC W LEE GD LEFT PERQ DEVICE PLACEMENT BREAST LOC 1ST LES W/GDMARLYNE Torrie Choi MD [address] [address] [facility] [address] [place] [phone] Referral ID Status Reason Start Date Expiration Date Visits Requested Visits Authorized [id number] Pending Review Auto-Generat ed Referral 02/03/2023 03/04/2024 1 1 T [facility] for referral (narrative)* Diagnostic Procedure Only (Routine) - New Request Specialty Diagnoses / Procedures Referred By Contac t Referred To Contact [facility] Diagnoses Visit for screening mammogram Malignant neoplasm of upper-outer quadrant of left breast in female, estrogen receptor positive (HCC) Procedures LEE SCREENING W SHIVA SCREENING DIGITAL BREAST TOMOSYNTHESIS BI SCREENING MAMMOGRAPHY BI 2-VIEW BREAST INC Danay Spicer PA-C [address] [place] [address] [facility] [address] [place] [address] Referral ID Status Reason Start Date Expiration Date Visits Requested Visits Authorized [id number] New Request Auto-Generat ed Referral 02/04/2024 03/04/2025 1 1 T [facility] for referral (narrative)* Diagnostic Procedure Only (Routine) - Closed Specialty Diagnoses / Procedures Referred By Ashley t Referred To Contact [facility] Diagnoses Visit for screening mammogram Malignant neoplasm of upper-outer quadrant of left breast in female, estrogen receptor positive (HCC) Procedures LEE SCREENING W SHIVA SCREENING DIGITAL BREAST TOMOSYNTHESIS BI SCREENING MAMMOGRAPHY BI 2-VIEW BREAST INC [employer] Danay Dubose PA-C [address] [place] [address] [facility] [address] [place] [address] Referral ID Status Reason Start Date Expiration Date V isits Requested Visits Authorized [id number] Closed Auto-Generate d Referral 02/04/2024 03/04/2025 1 1 [facility] for referral (narrative)* Consultation (Routine) - Pending Review Specialty Diagnoses / Procedures Referred By Contac t Referred To Contact Physical Therapy Diagnoses Parkinsonism, unspecified Parkinsonism type (Multi) Marie Devi MD [address] [facility] [place] [address] Referral ID Status Reason Start Date Expiration Date Visits Requested Visits Authorized [id number] Pending Review Specialty Services Required 02/18/2024 02/17/2025 1 1 [facility] Work Phone: [email or web address] for visit Narrative* Diagnostic Procedure Only (Routine) - Closed Specialty Diagnoses / Procedures Referred By Contac t Referred To Contact [facility] Diagnoses Abnormal finding on radiological examination of breast Procedures US BREAST LTD LEFT US BREAST UNI REAL TIME WITH IMAGE LIMITED Jannette Mendez MD [address] [place] [address] [facility] [address] [place] [phone] Referral ID Status Reason Start Date Expiration Date V isits Requested Visits Authorized [id number] Closed Auto-Generate d Referral 01/21/2023 06/22/2023 1 1 [facility] for visit Narrative* Diagnostic Procedure Only (Routine) - Closed Specialty Diagnoses / Procedures Referred By Contac t Referred To Contact [facility] Diagnoses Abnormal finding on radiological examination of breast Procedures US BIOPSY BREAST LEFT BX BREAST W/DEVICE 1ST LESION ULTRASOUND GUID Jannette Mendez MD [address] [place] [address] [facility] [address] [place] [phone] Referral ID Status Reason Start Date Expiration Date V isits Requested Visits Authorized [id number] Closed Auto-Generate d Referral 01/21/2023 02/20/2024 1 1 [facility] for visit Narrative* Diagnostic Procedure Only (Routine) - Closed Specialty Diagnoses / Procedures Referred By Contac t Referred To Contact [facility] Diagnoses Malignant neoplasm of upper-outer quadrant of left breast in female, estrogen receptor positive (HCC) Procedures LEE NDL LOC W LEE GD LEFT PERQ DEVICE PLACEMENT BREAST LOC 1ST LES W/GDMARLYNE Torrie Choi MD [address] [address] [facility] [address] [place] [phone] Referral ID Status Reason Start Date Expiration Date V isits Requested Visits Authorized [id number] Closed Auto-Generate d Referral 02/03/2023 03/04/2024 1 1 [facility] for visit Narrative* Diagnostic Procedure Only (Routine) - Closed Specialty Diagnoses / Procedures Referred By Ashley sigala Referred To Contact [facility] Diagnoses Visit for screening mammogram Malignant neoplasm of upper-outer quadrant of left breast in female, estrogen receptor positive (HCC) Procedures LEE SCREENING W SHIVA SCREENING DIGITAL BREAST TOMOSYNTHESIS BI SCREENING MAMMOGRAPHY BI 2-VIEW BREAST INC Danay Spicer PA-C [address] [place] [address] [facility] [address] [place] [phone] Referral ID Status Reason Start Date Expiration Date V isits Requested Visits Authorized [id number] Closed Auto-Generate d Referral 02/04/2024 03/04/2025 1 1 [facility] for visit Narrative* Diagnostic Procedure Only (Routine) - Closed Specialty Diagnoses / Procedures Referred By Ashley sigala Referred To Contact [facility] Diagnoses Abnormal MRI of head History of stroke Procedures US CAROTID BILATERAL Sara Ramey, [employer]AI[employer]PER[employer] [address] [place] [address] Phone: tel: fax: [place] [phone] Referral ID Status Reason Start Date Expiration Date V isits Requested Visits Authorized [id number] Closed Auto-Generate d Referral 01/12/2025 02/11/2026 1 1 [facility] Family History No Family History Records [...] follow-up for 6 months anxiety/depression , fasting .MDAIHA PERALES is here for a follow-up for anxiety/depression no other concerns.* Here with her for her AMW, she has no concerns to address * Received flu shot today * Patient answered all questions prior to immunization * 1: Have you ever had Guillain-Castell syndrome? (a viral illness resulting in neurological symptoms, including paralysis) (Yes/No): NO * 2. Have you ever had an anaphylactic reaction to prior flu vaccines? (Yes/No): NO * Patient was provided a copy of the current Influenza Vaccine Information Sheet Advance Directives No Advanced Directives Records FoundDocuments on File Type Date Recorded Patient Nursing Unit Coordinator Expl anation Advance Directive(s) 01/17/2020 4:27 PM Documents on File Type Date Recorded Patient Nursing Unit Coordinator Expl anation Advance Directive(s) 01/17/2020 4:27 PM [...] Relationship Healthcare Agent Relationshi p Communication [place] Spouse Health Care Agent Date Activated Date [...] Epidermal/Dermal Dara Sorensen, DO [address] [facility], [place] [address] Referral ID Status Reason Start Date Expiration Date V isits Requested Visits Authorized [id number] Authorized 10/30/2022 04/28/2023 1 1 Specialty Diagnoses / Procedures Referred By Contac t Referred To Contact Radiation Oncology Diagnoses Malignant neoplasm of upper-outer quadrant of left breast in female, estrogen receptor positive (HCC) Procedures RAD/ONC CONSULT OFFICE/OUTPATIENT [facility] 60-74 MINUTES Torrie Choi MD [address] [address] Referral ID Status Reason Start Date Expiration Date Visits Requested Visits Authorized [id number] Authorized PCP Requested Referral 02/27/2023 02/27/2024 1 1 Specialty Diagnoses / Procedures Referred By Contac t Referred To Contact Oncology Diagnoses Malignant neoplasm of upper-outer quadrant of left breast in female, estrogen receptor positive (HCC) Procedures CONSULT TO ONCOLOGY OFFICE/OUTPATIENT NEW HIGH MDM 60-74 MINUTES Torrie Choi MD [address] [address] Referral ID Status Reason Start Date Expiration Date Visits Requested Visits Authorized [id number] Authorized PCP Requested Referral 02/27/2023 02/27/2024 1 1 Specialty Diagnoses / Procedures Referred By Contac t Referred To Contact Cardiology Diagnoses Malignant neoplasm of upper-outer quadrant of left breast in female, estrogen receptor positive (HCC) Other general symptoms and signs Procedures Transthoracic echocardiogram (TTE) complete with contrast, bubble, strain, and 3D PRN ID ECHO TTHRC R-T 2D W/WOM-MODE COMPL SPEC&COLR D ID TTE W OR WO FOL WCON,DOPPLER VanessaLissaStevie E, DO [address] [place] [address] Referral ID Status Reason Start Date Expiration Date V isits Requested Visits Authorized [id number] Authorized 03/18/2023 09/14/2023 1 1 Referral ID Status Reason Start Date Expiration Date Visits Re quested Visits Authorized [id number] Closed 03/18/2023 09/14/2023 1 1 Specialty Diagnoses / Procedures Referred By Ashley t Referred To Contact Cardiology Diagnoses Encounter for monitoring cardiotoxic drug therapy Procedures Transthoracic echocardiogram (TTE) complete with contrast, bubble, strain, and 3D PRN ID ECHO TTHRC R-T 2D W/WOM-MODE COMPL SPEC&COLR D ID TTE W OR WO FOL WCON,DOPPLER VanessaAlvareza E, DO [address] [place] [address] Referral ID Status Reason Start Date Expiration Date V isits Requested Visits Authorized [id number] Authorized 05/20/2023 05/19/2024 1 1 Specialty Diagnoses / Procedures Referred By Ashley t Referred To Contact Cardiology Diagnoses Malignant neoplasm of upper-outer quadrant of left breast in female, estrogen receptor positive (HCC) Localized edema Procedures Vascular US lower extremity venous duplex left Stevie Escobedo, DO [address] [place] [address] Referral ID Status Reason Start Date Expiration Date Visits Re quested Visits Authorized [id number] Closed 06/03/2023 06/02/2024 1 1 Referral ID Status Reason Start Date Expiration Date Visits Re quested Visits Authorized [id number] Closed 05/20/2023 05/19/2024 1 1 Specialty Diagnoses / Procedures Referred By Ashley t Referred To Contact Radiology Diagnoses Malignant neoplasm of upper-outer quadrant of left female breast, unspecified estrogen receptor status (HCC) Procedures CT Sim WO Jarrell Diego MD [address] [facility] [address] [place] [address] Referral ID Status Reason Start Date Expiration Date Visits Re quested Visits Authorized [id number] Closed 07/02/2023 07/01/2024 1 1 Specialty Diagnoses / Procedures Referred By Contac t Referred To Contact Cardiology Diagnoses Admission for therapeutic drug monitoring Encounter for monitoring cardiotoxic drug therapy Procedures Transthoracic echocardiogram (TTE) complete with contrast, bubble, strain, and 3D PRN ID ECHO TTHRC R-T 2D W/WOM-MODE COMPL SPEC&COLR D ID TTE W OR WO FOL WCON,Stevie Lizarraga, [address] [facility] [address] [place] [address] Referral ID Status Reason Start Date Expiration Date V isits Requested Visits Authorized [id number] Pending Review 07/29/2023 07/28/2024 1 1 Specialty Diagnoses / Procedures Referred By Contac t Referred To Contact Radiology Diagnoses Thyroid nodule Procedures US thyroid Marie Devi MD [address] [place] [address], [address] [place] [address] Referral ID Status Reason Start Date Expiration Date Visits Requested Visits Authorized [id number] Pending Review Perform Procedure 07/30/2023 07/29/2024 1 1 Specialty Diagnoses / Procedures Referred By Contac t Referred To Contact Radiology Diagnoses Nontoxic single thyroid nodule Procedures US thyroid Marie Devi MD [address] [place] [address], [address] [place] [address] Referral ID Status Reason Start Date Expiration Date Visits Requested Visits Authorized [id number] Authorized Perform Procedure 07/30/2023 07/29/2024 1 1 Referral ID Status Reason Start Date Expiration Date Visits Requested Visits Authorized [id number] Pending Review Perform Procedure 07/26/2023 07/25/2024 1 1 Specialty Diagnoses / Procedures Referred By Contac t Referred To Contact Cardiology Diagnoses Admission for therapeutic drug monitoring Encounter for monitoring cardiotoxic drug therapy Procedures Transthoracic echocardiogram (TTE) complete with contrast, bubble, strain, and 3D PRN ID ECHO TTHRC R-T 2D W/WOM-MODE COMPL SPEC&COLR D ID TTE W OR WO FOL WCON,Stevie Lizarraga DO [address] [facility] [address] [place] [address] Referral ID Status Reason Start Date Expiration Date Visits Re quested Visits Authorized [id number] Closed 07/29/2023 07/28/2024 1 1 Medications Administered [...] or prosecute any alcohol or drug abuse patient.[facility] the event this information is protected by the Federal Confidentiality of Alcohol and Drug Abuse Patient Records regulations: The Federal rules restrict any use of the information to criminally investigate or prosecute any alcohol or drug abuse patient.[facility] Hospital[facility] the event this information is protected by the Federal Confidentiality of Alcohol and Drug Abuse Patient Records regulations: The Federal rules restrict any use of the information to criminally investigate or prosecute any alcohol or drug abuse patient.[facility] Hospital[facility] the event this information is protected by the Federal Confidentiality of Alcohol and Drug Abuse Patient Records regulations: The Federal rules restrict any use of the information to criminally investigate or prosecute any alcohol or drug abuse patient.[facility] Hospital[facility] the event this information is protected by the Federal Confidentiality of Alcohol and Drug Abuse Patient Records regulations: The Federal rules restrict any use of the information to criminally investigate or prosecute any alcohol or drug abuse patient.[facility] Hospital[facility] the event this information is protected by the Federal Confidentiality of Alcohol and Drug Abuse Patient Records regulations: The Federal rules restrict any use of the information to criminally investigate or prosecute any alcohol or drug abuse patient.[facility] the event this information is protected by the Federal Confidentiality of Alcohol and Drug Abuse Patient Records regulations: The Federal rules restrict any use of the information to criminally investigate or prosecute any alcohol or drug abuse patient.[facility] Hospital[facility] the event this information is protected by the Federal Confidentiality of Alcohol and Drug Abuse Patient Records regulations: The Federal rules restrict any use of the information to criminally investigate or prosecute any alcohol or drug abuse patient.[facility] HospitalIn the event this information is protected by the Federal Confidentiality of Alcohol and Drug Abuse Patient Records regulations: The Federal rules restrict any use of the information to criminally investigate or prosecute any alcohol or drug abuse patient.[facility] the event this information is protected by the Federal Confidentiality of Alcohol and Drug Abuse Patient Records regulations: The Federal rules restrict any use of the information to criminally investigate or prosecute any alcohol or drug abuse patient.[facility] Hospital[facility] the event this information is protected by the Federal Confidentiality of Alcohol and Drug Abuse Patient Records regulations: The Federal rules restrict any use of the information to criminally investigate or prosecute any alcohol or drug abuse patient.[facility] HospitalIn the event this information is protected by the Federal Confidentiality of Alcohol and Drug Abuse Patient Records regulations: The Federal rules restrict any use of the information to criminally investigate or prosecute any alcohol or drug abuse patient.[facility] HospitalIn the event this information is protected by the Federal Confidentiality of Alcohol and Drug Abuse Patient Records regulations: The Federal rules restrict any use of the information to criminally investigate or prosecute any alcohol or drug abuse patient.[facility] HospitalIn the event this information is protected by the Federal Confidentiality of Alcohol and Drug Abuse Patient Records regulations: The Federal rules restrict any use of the information to criminally investigate or prosecute any alcohol or drug abuse patient.[facility] HospitalIn the event this information is protected by the Federal Confidentiality of Alcohol and Drug Abuse Patient Records regulations: The Federal rules restrict any use of the information to criminally investigate or prosecute any alcohol or drug abuse patient.[facility] HospitalIn the event this information is protected by the Federal Confidentiality of Alcohol and Drug Abuse Patient Records regulations: The Federal rules restrict any use of the information to criminally investigate or prosecute any alcohol or drug abuse patient.[facility] HospitalIn the event this information is protected by the Federal Confidentiality of Alcohol and Drug Abuse Patient Records regulations: The Federal rules restrict any use of the information to criminally investigate or prosecute any alcohol or drug abuse patient.[facility] HospitalIn the event this information is protected by the Federal Confidentiality of Alcohol and Drug Abuse Patient Records regulations: The Federal rules restrict any use of the information to criminally investigate or prosecute any alcohol or drug abuse patient.[facility] HospitalIn the event this information is protected by the Federal Confidentiality of Alcohol and Drug Abuse Patient Records regulations: The Federal rules restrict any use of the information to criminally investigate or prosecute any alcohol or drug abuse patient.[facility] HospitalIn the event this information is protected by the Federal Confidentiality of Alcohol and Drug Abuse Patient Records regulations: The Federal rules restrict any use of the information to criminally investigate or prosecute any alcohol or drug abuse patient.[facility] HospitalIn the event this information is protected by the Federal Confidentiality of Alcohol and Drug Abuse Patient Records regulations: The Federal rules restrict any use of the information to criminally investigate or prosecute any alcohol or drug abuse patient.[facility] HospitalIn the event this information is protected by the Federal Confidentiality of Alcohol and Drug Abuse Patient Records regulations: The Federal rules restrict any use of the information to criminally investigate or prosecute any alcohol or drug abuse patient.[facility] HospitalIn the event this information is protected by the Federal Confidentiality of Alcohol and Drug Abuse Patient Records regulations: The Federal rules restrict any use of the information to criminally investigate or prosecute any alcohol or drug abuse patient.[facility] HospitalIn the event this information is protected by the Federal Confidentiality of Alcohol and Drug Abuse Patient Records regulations: The Federal rules restrict any use of the information to criminally investigate or prosecute any alcohol or drug abuse patient.[facility] HospitalIn the event this information is protected by the Federal Confidentiality of Alcohol and Drug Abuse Patient Records regulations: The Federal rules restrict any use of the information to criminally investigate or prosecute any alcohol or drug abuse patient.[facility] HospitalIn the event this information is protected by the Federal Confidentiality of Alcohol and Drug Abuse Patient Records regulations: The Federal rules restrict any use of the information to criminally investigate or prosecute any alcohol or drug abuse patient.[facility] HospitalIn the event this information is protected by the Federal Confidentiality of Alcohol and Drug Abuse Patient Records regulations: The Federal rules restrict any use of the information to criminally investigate or prosecute any alcohol or drug abuse patient.[facility] HospitalIn the event this information is protected by the Federal Confidentiality of Alcohol and Drug Abuse Patient Records regulations: The Federal rules restrict any use of the information to criminally investigate or prosecute any alcohol or drug abuse patient.[facility] HospitalIn the event this information is protected by the Federal Confidentiality of Alcohol and Drug Abuse Patient Records regulations: The Federal rules restrict any use of the information to criminally investigate or prosecute any alcohol or drug abuse patient.[facility] Reason for Visit (unrecogniz ed section and content) Specialty Diagnoses / Procedures Referred By Ashley sigala Referred To Contact Radiology / RADIO MAMMO [facility] Diagnoses Screening Mammogram, Z12.31 Procedures MAMMOGRAM SCREENING Marie Devi MD [address] [place] [address] Radio Mammo [facility] [address] [place] [address] Referral ID Status Reason Start Date Expiration Date V isits Requested Visits Authorized [id number] Outside PCP 09/21/2021 11/20/2021 1 1 Reason [...] with contrast, bubble, strain, and 3D PRN ID ECHO TTHRC R-T 2D W/WOM-MODE COMPL SPEC&COLR D ID TTE W OR WO FOL WCON,Stevie Lizarraga DO [address] [facility] [address] [place] [address] Referral ID Status Reason Start Date Expiration Date Visits Re quested Visits Authorized [id number] Closed 03/18/2023 09/14/2023 1 1 Reason Comments OP Infusion Specialty Diagnoses / Procedures Referred By Contac t Referred To Contact Diagnoses Malignant neoplasm of upper-outer quadrant of left breast in female, estrogen receptor positive (HCC) Stevie Escobedo DO [address] [place] [address] [facility] [address] [place] [address] Referral ID Status Reason Start Date Expiration Date V isits Requested Visits Authorized [id number] Authorized 03/21/2023 09/17/2023 2 2 Reason Comments Breast Cancer Reason Comments Follow-up Patient fell last we ek and called in and spoke to Nurse. Referral ID Status Reason Start Date Expiration Date V isits Requested Visits Authorized [id number] Authorized 03/21/2023 09/17/2023 999 1001 Reason Onset Date Comments order for ECHO 05/12/2023 Reason Onset Date Comments Orders 06/03/2023 Specialty Diagnoses / Procedures [facility] Referred To Contact Cardiology Diagnoses Malignant neoplasm of upper-outer quadrant of left breast in female, estrogen receptor positive (HCC) Localized edema Procedures Vascular US lower extremity venous duplex left Stevie Escobedo DO [address] [place] [address] Referral ID Status Reason Start Date Expiration Date Visits Re quested Visits Authorized [id number] Closed 06/03/2023 06/02/2024 1 1 Reason Onset Date Comments Lab Orders 06/09/2023 Reason Onset Date Comments Nutrition Counseling 06/11/2023 Specialty Diagnoses / Procedures [facility] Referred To Contact Cardiology Diagnoses Encounter for monitoring cardiotoxic drug therapy Procedures Transthoracic echocardiogram (TTE) complete with contrast, bubble, strain, and 3D PRN ID ECHO TTHRC R-T 2D W/WOM-MODE COMPL SPEC&COLR D ID TTE W OR WO FOL WCON,DOPPLER Stevie Escobedo DO [address] [place] [address] Referral ID Status Reason Start Date Expiration Date Visits Re quested Visits Authorized [id number] Closed 05/20/2023 05/19/2024 1 1 Reason Comments Hospital Follow-up Was at [facility] was not r esponsive could not even stand, saying it was from the chemo Specialty Diagnoses / Procedures Referred By Ashley sigala Referred To Contact Radiology Diagnoses Malignant neoplasm of upper-outer quadrant of left female breast, unspecified estrogen receptor status (HCC) Procedures CT Sim Jarrell Henderson MD [address] [facility] [address] [place] [address] Referral ID Status Reason Start Date Expiration Date Visits Re quested Visits Authorized [id number] Closed 07/02/2023 07/01/2024 1 1 Reason Comments Follow-up Specialty Diagnoses / Procedures Referred By Ashley sigala Referred To Contact Diagnoses Malignant neoplasm of upper-outer quadrant of left breast in female, estrogen receptor positive (HCC) (HCC) Stevie Escobedo DO [address] [facility] [address] [place] [address] [facility] [address] [place] [address] Referral ID Status Reason Start Date Expiration Date V isits Requested Visits Authorized [id number] Authorized 03/21/2023 09/17/2023 999 1002 Reason Onset Date Comments Orders 07/29/2023 Reason Comments Medicare Annual Wellness Visit Mary [...] Radiology Diagnoses Thyroid nodule Procedures US thyroid DulaMrie arroyo MD [address] [facility] [place] [address] Referral ID Status Reason Start Date Expiration Date Visits Requested Visits Authorized [id number] Pending Review Perform Procedure 07/30/2023 07/29/2024 1 1 Specialty Diagnoses / Procedures Referred By Ashley sigala Referred To Contact Radiology Diagnoses Nontoxic single thyroid nodule Procedures US thyroid DulMarie arroyo MD [address] [facility], [address] [place] [address] Referral ID Status Reason Start Date Expiration Date Visits Requested Visits Authorized [id number] Authorized Perform Procedure 07/30/2023 07/29/2024 1 1 Referral ID Status Reason Start Date Expiration Date Visits Requested Visits Authorized [id number] Pending Review Perform Procedure 07/26/2023 07/25/2024 1 1 Referral ID Status Reason Start Date Expiration Date V isits Requested Visits Authorized [id number] Authorized 03/21/2023 09/17/2023 999 1003 Referral ID Status Reason Start Date Expiration Date V isits Requested Visits Authorized [id number] Authorized 03/21/2023 09/17/2023 999 1004 Specialty Diagnoses / Procedures Referred By Contac t Referred To Contact Cardiology Diagnoses Admission for therapeutic drug monitoring Encounter for monitoring cardiotoxic drug therapy Procedures Transthoracic echocardiogram (TTE) complete with contrast, bubble, strain, and 3D PRN ID ECHO TTHRC R-T 2D W/WOM-MODE COMPL SPEC&COLR D ID TTE W OR WO FOL WCON,DOPPLER Stevie Escobedo DO [address] [place] [address] Referral ID Status Reason Start Date Expiration Date Visits Re quested Visits Authorized [id number] Closed 07/29/2023 07/28/2024 1 1 Specialty Diagnoses / Procedures Referred By Contac t Referred To Contact Diagnoses Malignant neoplasm of upper-outer quadrant of left breast in female, estrogen receptor positive (HCC) Stevie Escobedo DO [address] [place] [address] [facility] [address] [place] [address] Referral ID Status Reason Start Date Expiration Date V isits Requested Visits Authorized [id number] Authorized 03/21/2023 09/17/2023 999 1005 Reason Onset Date Comments Nutrition Counseling 10/06/2023 Specialty Diagnoses / Procedures Referred By Contac t Referred To Contact [facility] [address] [place] [address] Referral ID Status Reason Start Date Expiration Date V isits Requested Visits Authorized [id number] New Request 10/15/2023 12/14/2023 Reason Comments Follow-up Pt is here for a hos pital follow up. Pt states she is doing better. Pt states she has no new concerns to discuss today. Reason Comments Breast Mass Reason Comments Patient Question Reason Comments Follow Up follow up Malignant neoplasm of upper-outer quadrant of left breast in female, estrogen receptor positive (HCC) [facility] Oncology Notes under scanned Documents Reason Comments Erroneous encounter-disregard Reason Comments Home Care Start of care confir mation call Specialty Diagnoses / Procedures Referred By Ashley sigala Referred To Contact Diagnoses Malignant neoplasm of upper-outer quadrant of left breast in female, estrogen receptor positive (HCC) Stevie Escobedo DO [address] [place] [address] Phone: tel: fax: [facility] [address] [place] [address] Phone: tel: Reason Comments Follow-up Citlaly is here to adry w up for Parkinsonism/ dep. Her Marcos has a few questions to discuss today., Reason Comments Med Refill Reason Comments Medicare Annual Wellness Visit Juana sigala Pt presents for annual MWV- ABN was given to pt and signed, pt verbalized understanding. Reason Comments Hospital Discharge Care Teams (unrecognized sec tion and content) Logistics Engineer Relationship Specialty Start Date End Date Marie Devi MD PCP - General Family Practice 07/16/13 Logistics Engineer Relationship Specialty Start Date End Date Marie Devi MD PCP - General Family Practice 07/16/13 Logistics Engineer Relationship Specialty Start Date End Date Marie Devi MD [address] [facility] [place], [place] [id number] PCP - General 08/19/12 Marie Devi MD [address] [facility] [place] [address] PCP - [employer]age PCP 06/23/21 Logistics Engineer Relationship Specialty Start Date End Date Marie Devi MD [address] [facility] [place] [address] PCP - General 08/19/12 Marie Devi MD [address] [facility] [place] [address] PCP - [employer] Advantage PCP 06/23/21 Logistics Engineer Relationship Specialty Start Date End Date Marie Devi MD PCP - General Family Medicine 07/16/13 Logistics Engineer Relationship Specialty Start Date End Date Marie Devi MD PCP - General Family Medicine 07/16/13 Logistics Engineer Relationship Specialty Start Date End Date Marie Devi MD PCP - General Family Medicine 07/16/13 Logistics Engineer Relationship Specialty Start Date End Date Marie Devi MD PCP - General Family Medicine 07/16/13 Logistics Engineer Relationship Specialty Start Date End Date Marie Devi MD [address] [facility] [place] [address] PCP - General 08/19/12 Marie Devi MD [address] [facility], [address] [place] [address] PCP - [employer] Advantage PCP 06/23/21 Logistics Engineer Relationship Specialty Start Date End Date Marie Devi MD PCP - General Family Medicine 07/16/13 Logistics Engineer Relationship Specialty Start Date End Date Marie Devi MD PCP - General Family Medicine 07/16/13 Logistics Engineer Relationship Specialty Start Date End Date Marie Devi MD PCP - General Family Medicine 07/16/13 Logistics Engineer Relationship Specialty Start Date End Date Marie Devi MD PCP - General Family Medicine 07/16/13 Logistics Engineer Relationship Specialty Start Date End Date Marie Devi MD PCP - General Family Medicine 07/16/13 Logistics Engineer Relationship Specialty Start Date End Date Marie Devi MD PCP - General Family Medicine 07/16/13 Logistics Engineer Relationship Specialty Start Date End Date Marie Devi MD PCP - General Family Medicine 07/16/13 Logistics Engineer Relationship Specialty Start Date End Date Marie Devi MD [address] [facility], [address] [place] [address] PCP - General 08/19/12 Marie Devi MD [address] [facility], [address] [place] [address] PCP - [employer] Medicare Advantage PCP 06/23/21 Logistics Engineer Relationship Specialty Start Date End Date Marie Devi MD PCP - General Family Medicine 07/16/13 Logistics Engineer Relationship Specialty Start Date End Date Marie Devi MD PCP - General Family Medicine 07/16/13 Logistics Engineer Relationship Specialty Start Date End Date Marie Devi MD [address] [facility], [address] [place] [address] PCP - General Family Medicine 03/06/23 Jarrell Diego MD [address] [place] [address] [place] [address] Radiation Oncologist Radiation Oncology 03/06/23 Logistics Engineer Relationship Specialty Start Date End Date Marie Devi MD [address] [facility], [address] [place] [address] PCP - General Family Medicine 03/06/23 Jarrell Diego MD [address] [place] [address] [place] [address] Radiation Oncologist Radiation Oncology 03/06/23 Stevie Escobedo DO [address] [place] [address] [place] [address] Consulting Physician Hematology and Oncology 03/18/23 Logistics Engineer Relationship Specialty Start Date End Date Marie Devi MD [address] [facility], [address] [place] [address] PCP - General Family Medicine 03/06/23 Jarrell Diego MD [address] [place] [address] [place], [place] [id number] Radiation Oncologist Radiation Oncology 03/06/23 Stevie Escobedo DO [address] [place] [address] [place] [address] Consulting Physician Hematology and Oncology 03/18/23 Logistics Engineer Relationship Specialty Start Date End Date Marie Devi MD [address] [facility], [address] [place] [address] PCP - General Family Medicine 03/06/23 Jarrell Diego MD [address] [place] [place] [address] Radiation Oncologist Radiation Oncology 03/06/23 Stevie Escobedo DO [address] [place] [address] [place] [address] Consulting Physician Hematology and Oncology 03/18/23 Logistics Engineer Relationship Specialty Start Date End Date Marie Devi MD [address] [facility], [address] [place] [address] PCP - General Family Medicine 03/06/23 Jarrell Diego MD [address] [place] [address] [place] [address] Radiation Oncologist Radiation Oncology 03/06/23 Stevie Escobedo DO [address] [place] [address] [place] [address] Consulting Physician Hematology and Oncology 03/18/23 Logistics Engineer Relationship Specialty Start Date End Date Marie Devi MD [address] [facility], [address] [place] [address] PCP - General Family Medicine 03/06/23 Jarrell Diego MD [address] [place] [address] [place] [address] Radiation Oncologist Radiation Oncology 03/06/23 Stevie Escobedo DO [address] [place] [place] [address] Consulting Physician Hematology and Oncology 03/18/23 Logistics Engineer Relationship Specialty Start Date End Date Marie Devi MD [address] [facility], [address] [place] [address] PCP - General Family Medicine 03/06/23 Jarrell Diego MD [address] [place] [address] [place] [address] Radiation Oncologist Radiation Oncology 03/06/23 Stevie Escobedo DO [address] [place] [place] [address] Consulting Physician Hematology and Oncology 03/18/23 Logistics Engineer Relationship Specialty Start Date End Date Marie Devi MD [address] [facility], [address] [place] [address] PCP - General Family Medicine 03/06/23 Jarrell Diego MD [address] [place] [address] [place] [address] Radiation Oncologist Radiation Oncology 03/06/23 Stevie Escobedo DO [address] [place] [address] [place] [address] Consulting Physician Hematology and Oncology 03/18/23 Logistics Engineer Relationship Specialty Start Date End Date Marie Devi MD [address] [facility], [address] [place] [address] PCP - General Family Medicine 03/06/23 Jarrell Diego MD [address] [place] [address] [place] [address] Radiation Oncologist Radiation Oncology 03/06/23 Stevie Escobedo DO [address] [place] [address] [place] [address] Consulting Physician Hematology and Oncology 03/18/23 Logistics Engineer Relationship Specialty Start Date End Date Marie Devi MD [address] [facility], [address] [place] [address] PCP - General Family Medicine 03/06/23 Jarrell Diego MD [address] [place] [address] [place] [address] Radiation Oncologist Radiation Oncology 03/06/23 Stevie Escobedo DO [address] [place] [place] [address] Consulting Physician Hematology and Oncology 03/18/23 Logistics Engineer Relationship Specialty Start Date End Date Marie Devi MD [address] [facility], [address] [place] [address] PCP - General Family Medicine 03/06/23 Jarrell Diego MD [address] [place] [address] [place] [address] Radiation Oncologist Radiation Oncology 03/06/23 Stevie Escobedo DO [address] [place] [address] [place] [address] Consulting Physician Hematology and Oncology 03/18/23 Logistics Engineer Relationship Specialty Start Date End Date Marie Devi MD [address] [facility], [address] [place] [address] PCP - General Family Medicine 03/06/23 Jarrell Diego MD [address] [place] [address] [place] [address] Radiation Oncologist Radiation Oncology 03/06/23 Stevie Escobedo DO [address] [place] [address] [place] [address] Consulting Physician Hematology and Oncology 03/18/23 Logistics Engineer Relationship Specialty Start Date End Date Marie Devi MD [address] [facility], [address] [place] [address] PCP - General Family Medicine 03/06/23 Jarrell Diego MD [address] [place] [address] [place] [address] Radiation Oncologist Radiation Oncology 03/06/23 Stevie Escobedo DO [address] [place] [place] [address] Consulting Physician Hematology and Oncology 03/18/23 Logistics Engineer Relationship Specialty Start Date End Date Marie Devi MD [address] [facility], [address] [place] [address] PCP - General Family Medicine 03/06/23 Jarrell Diego MD [address] [place] [address] [place] [address] Radiation Oncologist Radiation Oncology 03/06/23 Stevie Escobedo DO [address] [place] [place] [address] Consulting Physician Hematology and Oncology 03/18/23 Logistics Engineer Relationship Specialty Start Date End Date Marie Devi MD [address] [facility], [address] [place], [place] [address] PCP - General Family Medicine 03/06/23 Jarrell Diego MD [address] [place] [address] [place] [address] Radiation Oncologist Radiation Oncology 03/06/23 Stevie Escobedo DO [address] [place] [address] [place] [address] Consulting Physician Hematology and Oncology 03/18/23 Logistics Engineer Relationship Specialty Start Date End Date Marie Devi MD [address] [facility], [address] [place] [address] PCP - General Family Medicine 03/06/23 Jarrell Diego MD [address] [place] [address] [place], [place] [id number] Radiation Oncologist Radiation Oncology 03/06/23 Stevie Escobedo DO [address] [place] [address] [place] [address] Consulting Physician Hematology and Oncology 03/18/23 Logistics Engineer Relationship Specialty Start Date End Date Marie Devi MD [address] [facility], [address] [place] [address] PCP - General Family Medicine 03/06/23 Jarrell Diego MD [address] [place] [address] [place] [address] Radiation Oncologist Radiation Oncology 03/06/23 Stevie Escobedo DO [address] [place] [address] [place] [address] Consulting Physician Hematology and Oncology 03/18/23 Logistics Engineer Relationship Specialty Start Date End Date Marie Devi MD [address] [facility], [address] [place] [address] PCP - General Family Medicine 03/06/23 Jarrell Diego MD [address] [place] [address] [place] [address] Radiation Oncologist Radiation Oncology 03/06/23 Stevie Escobedo DO [address] [place] [place] [address] Consulting Physician Hematology and Oncology 03/18/23 Logistics Engineer Relationship Specialty Start Date End Date Marie Devi MD [address] [facility], [address] [place] [address] PCP - General Family Medicine 03/06/23 Jarrell Diego MD [address] [place] [address] [place] [address] Radiation Oncologist Radiation Oncology 03/06/23 Stevie Escobedo DO [address] [place] [address] [place] [address] Consulting Physician Hematology and Oncology 03/18/23 Logistics Engineer Relationship Specialty Start Date End Date Marie Devi MD [address] [facility], [address] [place] [address] PCP - General Family Medicine 03/06/23 Jarrell Diego MD [address] [place] [address] [place] [address] Radiation Oncologist Radiation Oncology 03/06/23 Stevie Escobedo DO [address] [place] [address] [place] [address] Consulting Physician Hematology and Oncology 03/18/23 Logistics Engineer Relationship Specialty Start Date End Date Marie Devi MD [address] [facility], [address] [place] [address] PCP - General Family Medicine 03/06/23 Jarrell Diego MD [address] [place] [address] [place] [address] Radiation Oncologist Radiation Oncology 03/06/23 Stevie Escobedo DO [address] [place] [place] [address] Consulting Physician Hematology and Oncology 03/18/23 Logistics Engineer Relationship Specialty Start Date End Date Marie Devi MD [address] [facility], [address] [place] [address] PCP - General Family Medicine 03/06/23 Jarrell Diego MD [address] [place] [address] [place] [address] Radiation Oncologist Radiation Oncology 03/06/23 Stevie Escobedo DO [address] [place] [address] [place] [address] Consulting Physician Hematology and Oncology 03/18/23 Logistics Engineer Relationship Specialty Start Date End Date Marie Devi MD [address] [facility], [address] [place] [address] PCP - General Family Medicine 03/06/23 Jarrell Diego MD [address] [place] [address] [place] [address] Radiation Oncologist Radiation Oncology 03/06/23 Stevie Escobedo DO [address] [place] [address] [place] [address] Consulting Physician Hematology and Oncology 03/18/23 Logistics Engineer Relationship Specialty Start Date End Date Marie Devi MD [address] [facility], [address] [place] [address] PCP - General Family Medicine 03/06/23 Jarrell Diego MD [address] [place] [address] [place] [address] Radiation Oncologist Radiation Oncology 03/06/23 Stevie Escobedo DO [address] [place] [place] [address] Consulting Physician Hematology and Oncology 03/18/23 Logistics Engineer Relationship Specialty Start Date End Date Marie Devi MD [address] [facility], [address] [place] [address] PCP - General Family Medicine 03/06/23 Jarrell Diego MD [address] [place] [place] [address] Radiation Oncologist Radiation Oncology 03/06/23 Stevie Escobedo DO [address] [place] [place] [address] Consulting Physician Hematology and Oncology 03/18/23 Logistics Engineer Relationship Specialty Start Date End Date Marie Devi MD [address] [facility], [address] [place] [address] PCP - General 08/19/12 Marie Devi MD [address] [facility], [address] [place] [address] PCP - [employer] Medicare Advantage PCP 06/23/21 Wilshire, Mirta, pocket makerCollege Football Coach 06/09/23 Logistics Engineer Relationship Specialty Start Date End Date Marie Devi MD [address] [facility], [address] [place] [address] PCP - General Family Medicine 03/06/23 Jarrell Diego MD [address] [place] [place] [address] Radiation Oncologist Radiation Oncology 03/06/23 Stevie Escobedo DO [address] [place] [place] [address] Consulting Physician Hematology and Oncology 03/18/23 Logistics Engineer Relationship Specialty Start Date End Date Marie Devi MD [address] [facility], [address] [place] [address] PCP - General Family Medicine 03/06/23 Jarrell Diego MD [address] [place] [place] [address] Radiation Oncologist Radiation Oncology 03/06/23 Stevie Escobedo DO [address] [place] [place] [address] Consulting Physician Hematology and Oncology 03/18/23 Logistics Engineer Relationship Specialty Start Date End Date Marie Devi MD [address] [facility], [address] [place] [address] PCP - General Family Medicine 03/06/23 Jarrell Diego MD [address] [place] [place] [address] Radiation Oncologist Radiation Oncology 03/06/23 Stevie Escobedo DO [address] [place] [address] Consulting Physician Hematology and Oncology 03/18/23 Logistics Engineer Relationship Specialty Start Date End Date Marie Devi MD [address] [facility], [address] [place] [address] PCP - General Family Medicine 03/06/23 Jarrell Diego MD [address] [place] [place] [address] Radiation Oncologist Radiation Oncology 03/06/23 Stevie Escobedo DO [address] [place] [address] Consulting Physician Hematology and Oncology 03/18/23 Logistics Engineer Relationship Specialty Start Date End Date Marie Devi MD [address] [facility], [address] [place] [address] PCP - General Family Medicine 03/06/23 Jarrell Diego MD [address] [place] [place] [address] Radiation Oncologist Radiation Oncology 03/06/23 Stevie Escobedo DO [address] [place] [address] Consulting Physician Hematology and Oncology 03/18/23 Logistics Engineer Relationship Specialty Start Date End Date Marie Devi MD [address] [facility], [address] [place] [address] PCP - General Family Medicine 03/06/23 Jarrell Diego MD [address] [place] [place] [address] Radiation Oncologist Radiation Oncology 03/06/23 Stevie Escobedo DO [address] [place] [address] Consulting Physician Hematology and Oncology 03/18/23 Logistics Engineer Relationship Specialty Start Date End Date Marie Devi MD [address] [facility], [address] [place] [address] PCP - General Family Medicine 03/06/23 Jarrell Diego MD [address] [place] [place] [address] Radiation Oncologist Radiation Oncology 03/06/23 Stevie Escobedo DO [address] [place] [address] Consulting Physician Hematology and Oncology 03/18/23 Logistics Engineer Relationship Specialty Start Date End Date Marie Devi MD [address] [facility], [address] [place] [address] PCP - General Family Medicine 03/06/23 Jarrell Diego MD [address] [place] [address] Radiation Oncologist Radiation Oncology 03/06/23 Stevie Escobedo DO [address] [facility] [address] [place] [address] Consulting Physician Hematology and Oncology 03/18/23 Logistics Engineer Relationship Specialty Start Date End Date Marie Devi MD [address] [facility], [address] [place] [address] PCP - General 08/19/12 Marie Devi MD [address] [facility], [address] [place] [address] PCP - [employer] Medicare Advantage PCP 06/23/21 Mirta Brody, pocket makerCollege Football Coach 06/09/23 Logistics Engineer Relationship Specialty Start Date End Date Marie Devi MD [address] [facility], [address] [place] [address] PCP - General 08/19/12 Marie Devi MD [address] [facility], [address] [place] [address] PCP - [employer] Medicare Advantage PCP 06/23/21 Mirta Brody, pocket makerCollege Football Coach 06/09/23 Logistics Engineer Relationship Specialty Start Date End Date Marie Devi MD [address] [facility], [address] [place] [address] PCP - General 08/19/12 Marie Devi MD [address] [facility], [address] [place] [address] PCP - [employer] Medicare Advantage PCP 06/23/21 Mirta Brody, pocket makerCollege Football Coach 06/09/23 Logistics Engineer Relationship Specialty Start Date End Date Marie Devi MD [address] [facility], [address] [place] [address] PCP - General Family Medicine 03/06/23 Jarrell Diego MD [address] [place] [place] [address] Radiation Oncologist Radiation Oncology 03/06/23 Stevie Escobedo DO [address] [place] [place] [address] Consulting Physician Hematology and Oncology 03/18/23 Logistics Engineer Relationship Specialty Start Date End Date Marie Devi MD [address] [facility], [address] [place] [address] PCP - General Family Medicine 03/06/23 Jarrell Diego MD [address] [place] [place] [address] Radiation Oncologist Radiation Oncology 03/06/23 Stevie Escobedo DO [address] [place] [place] [address] Consulting Physician Hematology and Oncology 03/18/23 Logistics Engineer Relationship Specialty Start Date End Date Marie Devi MD [address] [facility], [address] [place] [address] PCP - General Family Medicine 03/06/23 Jarrell Digeo MD [address] [facility], [address] [place] [address] Radiation Oncologist Radiation Oncology 03/06/23 Stevie Escobedo DO [address] [place] [address] [place] [address] Consulting Physician Hematology and Oncology 03/18/23 Logistics Engineer Relationship Specialty Start Date End Date Marie Devi MD [address] [facility], [address] [place], [place] [address] PCP - General Family Medicine 03/06/23 Jarrell Diego MD [address] [facility], [address] [place] [address] Radiation Oncologist Radiation Oncology 03/06/23 Stevie Escobedo DO [address] [place] [place] [address] Consulting Physician Hematology and Oncology 03/18/23 Logistics Engineer Relationship Specialty Start Date End Date Marie Devi MD [address] [facility], [address] [place] [address] PCP - General Family Medicine 03/06/23 Jarrell Diego MD [address] [facility], [address] [place], [place] [address] Radiation Oncologist Radiation Oncology 03/06/23 Stevie Escobedo DO [address] [place] [place] [address] Consulting Physician Hematology and Oncology 03/18/23 Logistics Engineer Relationship Specialty Start Date End Date Marie Devi MD [address] [facility], [address] [place] [address] PCP - General Family Medicine 03/06/23 Jarrell Diego MD [address] [facility], [address] [place] [address] Radiation Oncologist Radiation Oncology 03/06/23 Stevie Escobedo DO [address] [place] [address] [place] [address] Consulting Physician Hematology and Oncology 03/18/23 Logistics Engineer Relationship Specialty Start Date End Date Marie Devi MD [address] [facility], [address] [place] [address] PCP - General Family Medicine 03/06/23 Jarrell Diego MD [address] [facility], [address] [place] [address] Radiation Oncologist Radiation Oncology 03/06/23 Stevie Escobedo DO [address] [place] [place] [address] Consulting Physician Hematology and Oncology 03/18/23 Logistics Engineer Relationship Specialty Start Date End Date Marie Devi MD PCP - General Family Medicine 07/16/13 Luana Montgomery MD [address] [place] [id number] Referring Internal Medicine 06/08/23 Marie Devi MD [address] [facility] [address] [place], [place] [address] Home Care Provider Family Medicine 06/09/23 Logistics Engineer Relationship Specialty Start Date End Date Marie Devi MD [address] [facility], [address] [place] [address] PCP - General Family Medicine 03/06/23 Jarrell Diego MD [address] [facility], [address] [place] [address] Radiation Oncologist Radiation Oncology 03/06/23 Stevie Escobedo DO [address] [place] [place] [address] Consulting Physician Hematology and Oncology 03/18/23 Logistics Engineer Relationship Specialty Start Date End Date Marie Devi MD [address] [facility], [address] [place] [address] PCP - General Family Medicine 03/06/23 Jarrell Diego MD [address] [facility], [address] [place] [address] Radiation Oncologist Radiation Oncology 03/06/23 Stevei Escobedo DO [address] [place] [place] [address] Consulting Physician Hematology and Oncology 03/18/23 Logistics Engineer Relationship Specialty Start Date End Date Marie Devi MD [address] [facility], [address] [place] [address] PCP - General 08/19/12 Marie Devi MD [address] [facility], [address] [place] [address] PCP - [facility] Medicare Advantage PCP 06/23/21 Ivanna Godinez MA Salon StylistCollege Football Coach 10/29/23 Logistics Engineer Relationship Specialty Start Date End Date Marie Devi MD [address] [facility], [address] [place] [address] PCP - General Family Medicine 03/06/23 Jarrell Diego MD [address] [facility], [address] [place] [address] Radiation Oncologist Radiation Oncology 03/06/23 Stevie Escobedo DO [address] [place], [place] [id number] Consulting Physician Hematology and Oncology 03/18/23 Logistics Engineer Relationship Specialty Start Date End Date Marie Devi MD [address] [facility], [address] [place] [address] PCP - General Family Medicine 03/06/23 Jarrell Diego MD [address] [facility], [address] [place], [place] [address] Radiation Oncologist Radiation Oncology 03/06/23 Stevie Escobedo DO [address] [place] [place] [address] Consulting Physician Hematology and Oncology 03/18/23 Logistics Engineer Relationship Specialty Start Date End Date Marie Devi MD PCP - General Family Medicine 07/16/13 Luana Montgomery MD [address] [place] [address] Referring Internal Medicine 06/08/23 Marie Devi MD [address] [facility] [address] [place] [address] Home Care Provider Family Medicine 06/09/23 Logistics Engineer Relationship Specialty Start Date End Date Marie Devi MD PCP - General Family Medicine 07/16/13 Luana Montgomery MD [address] [place] [address] Referring Internal Medicine 06/08/23 Marie Devi MD [address] [facility] [address] [place] [address] Home Care Provider Family Medicine 06/09/23 Logistics Engineer Relationship Specialty Start Date End Date Marie Devi MD [address] [facility], [facility] 1 [place] [address] PCP - General Family Medicine 03/06/23 Jarrell Diego MD [address] [facility], [facility] 1 [place] [address] Radiation Oncologist Radiation Oncology 03/06/23 Stevie Escobedo DO [address] [facility] [address] [place] [address] Consulting Physician Hematology and Oncology 03/18/23 Logistics Engineer Relationship Specialty Start Date End Date Marie Devi MD PCP - General Family Medicine 07/16/13 Luana Montgomery MD [address] [place] [address] Referring Internal Medicine 06/08/23 Marie Devi MD [address] [facility] 1 [place], [place] [address] Home Care Provider Family Medicine 06/09/23 Logistics Engineer Relationship Specialty Start Date End Date Marie Devi MD PCP - General Family Medicine 07/16/13 Luana Montgomery MD [address] [place] [address] Referring Internal Medicine 06/08/23 Marie Devi MD [address] [facility] 1 [place] [address] Home Care Provider Family Medicine 06/09/23 Yony Loredo, RN [address] [place], [place] [id number] Storage Battery Inspector And Tester Post Acute Care 06/09/23 06/26/23 Logistics Engineer Relationship Specialty Start Date End Date Marie Devi MD PCP - General Family Medicine 07/16/13 Luana Montgomery MD [address] [place], [place] [id number] Referring Internal Medicine 06/08/23 Marie Devi MD [address] [facility] [address] [place], [place] [address] Home Care Provider Family Medicine 06/09/23 Yony Loredo, RN [address] [place], [place] [id number] Storage Battery Inspector And Tester Post Acute Care 06/09/23 06/26/23 Logistics Engineer Relationship Specialty Start Date End Date Marie Devi MD [address] [facility] [facility] [place] [address] PCP - General Family Medicine 03/06/23 Jarrell Diego MD [address] [facility] [place] [address] Radiation Oncologist Radiation Oncology 03/06/23 Stevie Escobedo DO [address] [facility] [address] [place], [place] [id number] Consulting Physician Hematology and Oncology 03/18/23 Logistics Engineer Relationship Specialty Start Date End Date Marie Devi MD [address] [facility] [place] [address] PCP - General 08/19/12 Marie Devi MD [address] [facility] [place], [place] [address] PCP - [employer] PCP 06/23/21 Logistics Engineer Relationship Specialty Start Date End Date Marie Devi MD [address] [facility] [place] [address] PCP - General Family Medicine 03/06/23 Jarrell Diego MD [address] [facility], [address] [place] [address] Radiation Oncologist Radiation Oncology 03/06/23 Stevie Escobedo DO [address] [place] [address] Consulting Physician Hematology and Oncology 03/18/23 Logistics Engineer Relationship Specialty Start Date End Date Cristina Santos DO [address] [facility] [address] [place] [address] PCP - General Family Medicine 08/10/24 Jarrell Diego MD Radiation Oncologist Radiation Oncology 03/06/23 Stevie Escobedo DO [address] [place] [address] Consulting Physician Hematology and Oncology 03/18/23 Logistics Engineer Relationship Specialty Start Date End Date Marie Devi MD [address] [facility] [address] [place] [address] PCP - [employer] PCP 06/23/21 Cristina Santos DO [address] [facility], [address] [place] [address] PCP - General Family Medicine 08/12/24 Logistics Engineer Relationship Specialty Start Date End Date Marie Devi MD PCP - General Family Medicine 07/16/13 Luana Montgomery MD [address] [place] [address] Referring Internal Medicine 06/08/23 Marie Devi MD [address] [place] [address] Home Care Provider Family Medicine 06/09/23 Logistics Engineer Relationship Specialty Start Date End Date Marie Devi MD PCP - General Family Medicine 07/16/13 Luana Montgomery MD [address] [place] [address] Referring Internal Medicine 06/08/23 Marie Devi MD [address] [place] [address] Home Care Provider Family Medicine 06/09/23 Logistics Engineer Relationship Specialty Start Date End Date Marie Devi MD PCP - General Family Medicine 07/16/13 Luana Montgomery MD [address] [place] [address] Referring Internal Medicine 06/08/23 Marie Devi MD [address] [place] [address] Home Care Provider Family Medicine 06/09/23 Logistics Engineer Relationship Specialty Start Date End Date Marie Devi MD PCP - General Family Medicine 07/16/13 Luana Montgomery MD [address] [place] [address] Referring Internal Medicine 06/08/23 Marie Devi MD [address] [place] [address] Home Care Provider Family Medicine 06/09/23 Logistics Engineer Relationship Specialty Start Date End Date Marie Devi MD PCP - General Family Medicine 07/16/13 Luana Montgomery MD [address] [place] [address] Referring Internal Medicine 06/08/23 Marie Devi MD [address] [place] [address] Home Care Provider Family Medicine 06/09/23 Logistics Engineer Relationship Specialty Start Date End Date Marie Devi MD PCP - General Family Medicine 07/16/13 Luana Montgomery MD [address] [place] [address] Referring Internal Medicine 06/08/23 Marie Devi MD [address] [place] [address] Home Care Provider Family Medicine 06/09/23 INFORMATION SOURCE (unrecogn ized section and content) DATE CREATED AUTHOR 01/12/2022 [employer] DATE CREATED AUTHOR AUTHOR'S ORGANIZ ATION 02/07/2023 [facility] DATE CREATED AUTHOR AUTHOR'S ORGANIZ ATION 12/19/2023 [facility] DATE CREATED AUTHOR AUTHOR'S ORGANIZ ATION 08/11/2024 [facility] DATE CREATED AUTHOR AUTHOR'S ORGANIZ ATION 09/19/2024 [facility] DATE CREATED AUTHOR AUTHOR'S ORGANIZ ATION 12/19/2024 [facility] DATE CREATED AUTHOR AUTHOR'S ORGANIZ ATION 12/22/2024 [facility] DATE CREATED AUTHOR AUTHOR'S ORGANIZ ATION 01/11/2025 [facility] DATE CREATED AUTHOR AUTHOR'S ORGANIZ ATION 01/23/2025 [facility] DATE CREATED AUTHOR AUTHOR'S ORGANIZ ATION 04/10/2025 [facility] FOR RECORDS PERTAINING TO PATIENTS WHO ARE [...] BE BASED ON THE PRIMARY CLINICAL RECORDS. [employer] provides no warranty or guarantee of the accuracy or completeness of information in this document.
[2025-04-12 08:09] LABS: Hematocrit 39.9 % (37-47); Hemoglobin 12.8 g/dL (12.0-15.0); Mean Corp Hgb Conc 32.1 g/dL (32-36); Mean Corpuscular Volume 94.5 fL (81-99); Mean Platelet Vol. 10.0 fl (6.2-12.0); Platelet Count 214 K/mm3 (150-450); RBC Distribution Width CV 14.6 % (11.6-14.6); RBC Distribution Width SD 50.8 fl (35.1-43.9); Red Blood Count 4.22 M/mm3 (4.2-5.4); White Blood Count 5.1 K/mm3 (4.4-11.0)
[2025-04-12 09:00] LABS: AST(SGOT) 24 U/L (<=31); Alanine Aminotransfer ALT/SGPT 10 U/L (<=34); Albumin, Serum 3.6 g/dL (3.4-4.8); Alkaline Phosphatase 81 U/L (35-104); Anion Gap 9 (5-15); BUN 18 mg/dL (4-19); BUN/Creat Ratio 23.2 RATIO (10-20); Calcium,Total 8.9 mg/dL (7.6-11.0); Carbon Dioxide 29.2 mmol/L (21.0-32.0); Chloride 105 mmol/L (98-108); Globulin 2.2 g/dL (2.2-4.2); Glucose 97 mg/dL (70-99); Potassium 4.4 mmol/L (3.3-5.1)
== END ==
LOC: OLS.ACH 05:00
PROVIDERS: Visit Provider Internal Medicine
DX: D64.9 Anemia, unspecified (principal); Z85.3 Personal history of malignant neoplasm of breast
CPT/HCPCS: 36415; 80053; 85027